=== PATIENT | male | born 1955 | race Caucasian/White ===

== ENCOUNTER 2016-10-13 09:13 | Inpatient (IN) | payer OTHER ==
--- NOTE | 2016-10-13 10:25 | XRay Report ---
CHEST 2 VIEWS INDICATION: Shortness of breath. COMPARISON: None similar at this institution. FINDINGS: PA and lateral chest radiographs demonstrate mild cardiomegaly. Clear lungs. Subtle posterior costophrenic angle blunting. Slight fluid or thickening along the major fissures as well. Mild upper thoracic levoscoliosis apex about T5. CONCLUSION: Mild cardiomegaly and possible trace pleural fluid, as described. Thank you for the opportunity to participate in this patient's care.
[2016-10-13 10:39] LABS: Hematocrit 20.5 % (35.5-45.6); Hemoglobin 6.7 gm/dl (11.8-15.2); Mean Corpuscular HGB Conc 33 % (32-34); Mean Corpuscular Hemoglobin 33 pg (28-32); Mean Corpuscular Volume 100 fl (84-94); Red Blood Count 2.04 M/mm3 (3.65-5.03)
[2016-10-13 10:42] LABS: White Blood Count 1.2 K/mm3 (4.5-11.0)
[2016-10-13 10:50] LABS: Alanine Aminotransferase 24 units/L (7-56); Albumin 2.3 g/dL (3.9-5); Albumin/Globulin Ratio 0.6 %; Alkaline Phosphatase 76 units/L (35-129); Anion Gap 31 mmol/L; Calcium 8.2 mg/dL (8.4-10.2); Carbon Dioxide 15 mmol/L (22-30); Chloride 89.7 mmol/L (98-107); Glucose 76 mg/dL (75-100); Potassium 5.5 mmol/L (3.6-5.0); Sodium 130 mmol/L (137-145); Total Protein 6.4 g/dL (6.3-8.2)
[2016-10-13 10:56] LABS: BUN/Creatinine Ratio 7.93; Blood Urea Nitrogen 115 mg/dL (9-20)
--- NOTE | 2016-10-13 10:58 | Admit Criteria Form ---
Admission Criteria Documentation: HYPONATREMIA; HYPERNATREMIA; HYPOKALEMIA; HYPERKALEMIA; HYPOCALCEMIA; HYPERCALCEMIA Clinical Indications for Inpatient Care (Place 'X' for any and all applicable criteria): Ongoing inpatient care may be indicated for ANY ONE of the following [G](1)(2)(3 )(5): [ ]I. Hyponatremia with ANY ONE of the following: [ ]a) Sodium less than 130 mEq/L (mmol/L) (new) (6)(22) [ ]b) Sodium less than 135 mEq/L (mmol/L) with ANY ONE of the following: [ ]i) Severe medical etiology requiring inpatient management (eg, heart failure, hypovolemia) [ ]ii) Altered mental status [ ]iii) Seizures [ ]II. Hypernatremia with ANY ONE of the following: [ ]a) Sodium greater than 155 mEq/L (mmol/L) [ ]b) Sodium greater than 150 mEq/L (mmol/L) with ANY ONE of the following: [ ] i) Altered mental status [ ]ii) Seizures [ ]iii) Severe medical etiology (eg, hypovolemia, diabetes insipidus) [ ]iv) Severe weakness [ ]v) Severe medical etiology (eg, hemolysis, infection, drug overdose) [ ]III. Hypokalemia with ANY ONE of the following: [ ]a) Potassium less than 2.5 mEq/L (mmol/L) despite outpatient and emergency treatment [ ]b) Potassium less than 3.0 mEq/L (mmol/L) with ANY ONE of the following: [ ]i) Weakness [ ]ii) Cardiac abnormality (eg, arrhythmia, conduction disturbance) [ ]iii) Cardiac ischemia [ ]iv) Ileus [ ]v) Ongoing medical cause requiring inpatient management. ( e.g., acute renal wasting, SIADH) [ ]vi) Other severe symptoms [X ] IV. Hyperkalemia with ANY ONE of the following: [ ]a) Potassium greater than 6.5 mEq/L (mmol/L) [X ]b) Potassium greater than 5 mEq/L (mmol/L) with ANY ONE of the following: [ ]i) Severe ECG findings [H] [X ]ii) Acute worsening of renal failure (creatinine greater than 2.5 mg/dL (221 micromoles/L) or significant elevation for age and size) [ ] V. Hypocalcemia with ANY ONE of the following: [ ]a) Calcium less than 7 mg/dL (1.75 mmol/L) despite outpatient and emergency treatment(19) [ ]b) Calcium less than 8 mg/dL (2 mmol/L) with significant symptoms or findings; examples include: [ ]i) Cardiac abnormality (eg, arrhythmia or conduction disturbance) [ ]ii) Altered mental status [ ]iii) Seizures [ ]iv) Breathing difficulty [ ]v) Muscle spasms [ ]. Hypercalcemia with ANY ONE of the following: [ ]a) Calcium greater than 14 mg/dL (3.5 mmol/L) [ ]b) Calcium greater than 12 mg/dL (3 mmol/L) with ANY ONE of the following: [ ]i) Significant dehydration or hypovolemia as indicated by ANY ONE of the following(2): [ ]1. Clinically significant dehydration as indicated by ANY ONE of the following: [ ]A. Acute loss of weight from baseline (5% of body weight in adults, 9% in pediatric patients) [ ]B. Hemodynamic instability [ ]C. Acute renal failure [ ]D. Serum sodium greater than 150 mEq/L (mmol/L) [ ]2) Dehydration that is persistent indicated by ALL of the following: [ ]A. Oral rehydration therapy not tolerated or insufficient to adequately correct dehydration [ ]B. Appropriate intravenous treatment (eg, fluids ) does not readily correct dehydration ie, after 12 to 24 hours of treatment) [ ]ii) Significant symptoms or findings; examples include: [ ]1) Altered mental status [ ]2) Cardiac abnormality (eg, arrhythmia, conduction disturbance) [ ]3) Cardiac abnormality (eg, arrhythmia, conduction disturbance) The original [employer] content created by [employer] has been revised. The portions of the content which have been revised are identified through the use of italic text or in bold, and [facility] has neither reviewed nor approved the modified material. All other unmodified content is copyright [facility] [employer] Please see references footnoted in the original [facility] [employer] edition 2016 Admission Criteria Met: Yes
[2016-10-13 11:16] LABS: Basophils % (Manual) 0 % (0.0-1.8); Blastocytes % (Manual) 0 %; Eosinophils % (Manual) 0 % (0.0-4.3)
[2016-10-13 11:17] LABS: Anisocytosis 2+; Diff Status Complete; Elliptocytes Few; Giant Platelets Rare; Large Platelets 1+; Macrocytosis Few; Ovalocytes 1+; Platelet Estimate Appears Decreased; Poikilocytosis 1+; Polychromasia Few; Tear Drop Cells Rare
[2016-10-13 11:19] LABS: Platelet Count 121 K/mm3 (140-440)
[2016-10-13] MEDS ORDERED: MORPHINE IV ONE (11:25)
--- NOTE | 2016-10-13 12:09 | Ultrasound Report ---
ULTRASOUND RENAL INDICATION: RAJESH, renal failure. COMPARISON: None similar. FINDINGS: Renal sonography suggests mild increased renal cortical echogenicity. Grossly preserved contours. No hydronephrosis. Small left pleural effusion incidentally noted. RIGHT KIDNEY measures 9.4 x 3.6 x 4.5 cm with cortical thickness of 1.5 cm. Minimal fluid in the Crockett's pouch. LEFT KIDNEY estimated at 8.8 x 5 x 5 cm with cortical thickness of 1.7 cm. URINARY BLADDER suboptimally distended and assessed. Approximately 0.9 x 0.4 cm nonspecific cystic focus along the urinary bladder anteriorly not entirely excluded to lie in the wall estimated at approximately 0.8 cm AP thickness as on images 22-25. CONCLUSION: No acute renal abnormality, though medical renal disease, small left pleural effusion, and a nonspecific urinary bladder wall cystic focus with wall thickening possible sonographically, as described. Please correlate. Thank you for the opportunity to participate in this patient's care.
--- NOTE | 2016-10-13 12:12 | Emergency Department Report ---
HPI - General Chief Complaint: Extremity Injury, Lower Time Seen by Provider: 10/13/16 10:51 - HPI HPI: This is a 61-year-old -[place] male who presents to the emergency department from home with complaint of a four-day history of swelling to the bilateral lower extremities and the right upper extremity. He has been having some intermittent swelling in the recent past but it got real bad 4 days ago. He has some pain in these areas secondary to the extra weight he is carrying. He denies any chest pain, shortness breath, abdominal pain, nausea, vomiting or fever. No recent travel or sick contacts at home. He has not taken anything for symptoms prior to presentation. Patient says that he does urinate but it is decreased in quantity recently. ED Past Medical Hx - Past Medical History Previous Medical History?: No - Surgical History Past Surgical History?: No - Social History Smoking Status: Never Smoker Substance Use Type: None - Medications Home Medications: Home Medications Medication Instructions Recorded Confirmed Last Taken Type Naproxen Sodium [Aleve TAB] 2 tab PO Q8H PRN 10/13/16 10/13/16 10/12/16 14:00 History ED Review of Systems ROS: Stated complaint: RT HAND AND BILATERAL FOOT SWELLING Other details as noted in HPI Comment: All other systems reviewed and negative Constitutional: denies: chills, fever Eyes: denies: eye pain, eye discharge, vision change ENT: denies: ear pain, throat pain Respiratory: denies: cough, shortness of breath, wheezing Cardiovascular: edema. denies: chest pain, palpitations Gastrointestinal: denies: abdominal pain, nausea, diarrhea Genitourinary: other (decreased urination). denies: hematuria, discharge Musculoskeletal: joint swelling. denies: arthralgia Skin: denies: rash, lesions Neurological: denies: headache, numbness Physical Exam - Physical Exam Vital Signs: Vital Signs 10/13/16 09:38 Temperature 98.2 F Pulse Rate 89 Respiratory 18 Rate Blood Pressure 133/86 O2 Sat by Pulse 98 Oximetry Physical Exam: GENERAL: The patient is well-developed well-nourished. HEENT: Normocephalic. Atraumatic. Extraocular motions are intact. Patient has moist mucous membranes. Pupils equal reactive to light bilaterally. Oropharynx clear. NECK: Supple. Trachea is midline. CHEST/LUNGS: Coarse breath sounds to the bases. No tachypnea or accessory muscle use.. There is no respiratory distress noted. HEART/CARDIOVASCULAR: Regular. There is no tachycardia. There is no gallop rub or murmur. ABDOMEN: Abdomen is soft, nontender. Patient has normal bowel sounds. There is no abdominal distention. SKIN: There is 2-3+ pitting edema to the bilateral lower extremities as well as the entire right upper extremity. No erythema, warmth or fluctuance. No bleeding, weeping or discharge. NEURO: The patient is awake, alert, and oriented. The patient is cooperative. The patient has no focal neurologic deficits. The patient has normal speech. MUSCULOSKELETAL: There is no tenderness. Patient has difficulty lifting his lower extremities off of the gurney secondary to the increased weight of the legs from the edema. There is no evidence of acute injury. ED Course Vital Signs 10/13/16 09:38 Temperature 98.2 F Pulse Rate 89 Respiratory 18 Rate Blood Pressure 133/86 O2 Sat by Pulse 98 Oximetry ED Medical Decision Making - Lab Data Result diagrams: 10/13/16 10:14 10/13/16 10:14 - Radiology Data Radiology results: report reviewed Venous Doppler ultrasound of the bilateral lower extremities in the right upper extremity are negative for DVT. Bilateral renal ultrasound shows medical renal disease but otherwise no obstructive uropathy or any acute process. - Medical Decision Making 61-year-old male presents to the emergency department with complaint of some progressively worsening swelling to the bilateral lower extremities in the right upper extremity. He denies any chest pain or shortness of breath. He denies any past medical history but also has not seen a physician as a primary care doctor in over 5 years. Patient presents with significant lab abnormalities including leukopenia, anemia, renal failure and hyperkalemia. Patient was given some Kayexalate. He was sent for an ultrasound of the renal system to look for obstructive uropathy as the cause of his renal failure and anuria but it shows only medical renal disease. Due to the swelling of the extremities he was sent for venous Dopplers but there was no sign of DVT. I am not sure of the etiology of the patient's symptoms and lab abnormalities but certainly a differential includes malignancy, HIV, lupus as well as some other possibilities. Nephrology was consult at and will see the patient in the emergency department. Vital signs stable throughout his ED course. Patient will be admitted to the hospitalist service of Dr. Mota. - Differential Diagnosis HIV, malignancy, lupus, CHF Critical Care Time: No Critical care attestation.: If time is entered above; I have spent that time in minutes in the direct care of this critically ill patient, excluding procedure time. ED Disposition Clinical Impression: Hyperkalemia Leucopenia Qualifiers: Leukopenia type: unspecified Qualified Code(s): D72.819 - Decreased white blood cell count, unspecified Anemia Qualifiers: Anemia type: unspecified type Qualified Code(s): D64.9 - Anemia, unspecified Renal failure Qualifiers: Renal failure chronicity: acute Acute renal failure type: unspecified Qualified Code(s): N17.9 - Acute kidney failure, unspecified Edema Qualifiers: Edema type: unspecified Qualified Code(s): R60.9 - Edema, unspecified Disposition: OP ADMITTED IP TO THIS HOSP Is pt being admited?: Yes Condition: Fair Time of Disposition: 14:05
[2016-10-13] MEDS ORDERED: KIONEX PO ONE (12:15)
[2016-10-13] MEDS ORDERED: NACL 0.9% 500 ML 500 ML IV ONE (12:16)
--- NOTE | 2016-10-13 13:26 | Consultation ---
History of Present Illness - Reason for Consult Consult date: 10/13/16 acute renal failure - History of Present Illness This is a 61 year old male who presented to the E. with his , Jennifer today for a chief complaint of pain and swelling to lower extremities and right upper extremity. Patient received Morphine at 11:30 a.m this morning for pain and is currently drowsy. at bedside who is the historian. According to patient's , the patient developed swelling to the right lower extremity first approximately 2 weeks ago then on Monday she noticed swelling to the left extremity and swelling to both legs have been increasing since Monday. Patient's also reports that she was administering Aleve 2 tablets every 12 hours daily for patient's leg pain since Monday. Patient denies any nausea, vomiting or diarrhea. States his appetite is good. states patient has urinated 1/2 cup of urine today. states patient does not have any Hypertension, Diabetes Mellitus or no medical history with the exception of Shingles last year November that he acquired when he had left the country. reports that patient does not have a Primary Care and is not being followed by any doctor and does not take any medications with the exception of Aleve which he started taking on Monday. On evaluation in E. patient is noted to be with Hyperkalemia with a potassium level of 5.5 and in severe renal failure with a BUN level of 115, creatinine 14.5 and GFR of 3 ml/ min. Patient is noted to be Leukopenic with a WBC count of 1.2 and severely Anemic with an HBG of 6.7. Doppler of lower extremities done and of right upper extremity revealed- No DVT. Renal US revealed- No Hydronephrosis. CXR revealed Mild Cardiomegaly and possible Pleural fluid. We are being consulted for management of this patient's Severe Renal Failure. Past History Past Medical History: other (Had shingles in November 2015) Past Surgical History: No surgical history Social history: , other (Patient is and lives with his ) Family history: no significant family history Medications and Allergies Allergies Allergy/AdvReac Type Severity Reaction Status Date / Time No Known Allergies Allergy Unverified 10/13/16 09:41 Home Medications Medication Instructions Recorded Confirmed Last Taken Type Naproxen Sodium [Aleve TAB] 2 tab PO Q8H PRN 10/13/16 10/13/16 10/12/16 14:00 History Review of Systems Constitutional: fatigue, weakness, no weight loss, no weight gain, no fever, no chills Ears, nose, mouth and throat: no ear pain, no ear discharge, no tinnitis, no decreased hearing, no nose pain, no nasal congestion Cardiovascular: edema, no chest pain, no orthopnea, no palpitations, no rapid/ irregular heart beat, no syncope, no lightheadedness, no shortness of breath Respiratory: no cough, no cough with sputum, no excessive sputum, no hemoptysis , no shortness of breath, no dyspnea on exertion Gastrointestinal: no abdominal pain, no nausea, no vomiting, no diarrhea, no constipation, no change in bowel habits, no hematemesis, no coffee ground emesis Genitourinary Male: no hematuria, no flank pain, no discharge, no urinary frequency, no urinary hesitancy, no nocturia, no incontinence Musculoskeletal: other (leg pain to both legs and swelling), no neck stiffness, no neck pain, no shooting arm pain, no arm numbness/tingling, no low back pain Integumentary: no rash, no pruritis, no redness, no sores, no wounds, no jaundice Neurological: weakness, no head injury, no transient paralysis, no paralysis, no parathesias, no numbness, no tingling, no seizures, no syncope, no tremors Psychiatric: no anxiety, no memory loss, no change in sleep habits, no sleep disturbances, no insomnia, no hypersomnia, no change in appetite, no change in libido Endocrine: no cold intolerance, no heat intolerance, no polyphagia, no excessive thirst, no polydipsia, no polyuria Hematologic/Lymphatic: no easy bruising, no easy bleeding, no lymphadenopathy, no lymphedema Exam - Vital Signs Vital signs: Vital Signs Temp Pulse Resp BP Pulse Ox 98.2 F 89 18 133/86 98 10/13/16 09:38 10/13/16 09:38 10/13/16 09:38 10/13/16 09:38 10/13/16 09:38 - General Appearance General appearance: well-developed, appears stated age, other (Drowsy but easily arousable, at bedside) EENT: ATNC, PERRL, hearing intact, vision intact Neck: Present: neck supple, trachea midline Respiratory: Decreased Breath Sounds Heart: regular, S1S2 Gastrointestinal: Present: normoactive bowel sounds Integumentary: warm and dry Neurologic: other (Drowsy but easily arousable, able answer questions briefly then dozes off) Musculoskeletal: Present: other (Has 2= edema to bilateral lower extremities and 1+ to right upper extremity) Results - Lab Results 10/13/16 10:14 10/13/16 10:14 Most recent lab results Calcium 8.2 mg/dL (8.4-10.2) L 10/13/16 10:14 Assessment and Plan - Patient Problems (1) Renal failure Current Visit: Yes Status: Acute Qualifiers: Renal failure chronicity: acute Acute renal failure type: unspecified Chronic kidney disease stage: C Qualified Code(s): N17.9 - Acute kidney failure, unspecified Plan to address problem: This patient has Severe renal failure, to be determine if this renal failure is Acute verses Chronic Patient's baseline serum creatinine is unknown Renal ultrasound reviewed- No Hydronephrosis or obstruction seen CXR- shows Mild Cardiomegaly and trace Plueral fluid. Will obtain GN work up- SPEP, UPEP, Anti-GBM, Hepatitis panel, ANCA, XU, HIV, Schistocytes smear, C3, C4 Obtain urine lytes- urinalysis, protein/creatinine ratio, urine sodium and urine creatinine Obtain iron panel Obtain phosphorus level Leukopenia- Pneumatic Riveter consulted Metabolic Acidosis without coma- Start Sodium Bicarbonate 650 mg po BID Strict I/O monitoring- do catheter ordered Avoid Nephrotoxic agents Renally dose medications Obtain daily weights This patient may need hemodialysis initiation in the next 24 hours if no improvement in renal function Reviewed plan of care with patient and his Jennifer at bedside. Also advised patient's to not administer any Aleve or NSAID's to patient from here on. Thank you for this kind consult. For any questions, please feel free to contact us at: Dr. Marin's cell: (2) Hyperkalemia Current Visit: Yes Status: Acute Plan to address problem: Kayexalate ordered BMP in a.m (3) Anemia Current Visit: Yes Status: Acute Qualifiers: Anemia type: unspecified type Iron deficiency anemia type: I Vitamin B12 deficiency anemia type: V Folate deficiency anemia type: F Bone marrow failure anemia type: B Hemolytic anemia type: H Other causes of anemia: O Qualified Code(s): D64.9 - Anemia, unspecified Plan to address problem: Scheduled to receive 1 unit PRBC transfusion Obtain iron level May need Epogen Hematology consult (4) Leucopenia Current Visit: Yes Status: Acute Qualifiers: Leukopenia type: unspecified Neutropenia type: N Qualified Code(s): D72.819 - Decreased white blood cell count, unspecified Plan to address problem: Hematology consulted
--- NOTE | 2016-10-13 14:39 | History and Physical Report ---
History of Present Illness Date of examination: 10/13/16 Chief complaint: Bilateral leg swelling History of present illness: 61-year-old -French male with no significant past medical history presented to the emergency department complaining of bilateral leg swelling that worsened for the last 4 days. The swelling is progressed gradually. Patient denied shortness of breath, orthopenia, PND, palpitations or dizziness. Patient denied bleeding from any sites of his body. Patient has never seen a physician for the last 5 years. Patient checked his blood pressure regularly at [facility] was usually in the normal limit. Patient has been taking Aleve since Monday for leg swelling. Patient denied any chest pain. REVIEW OF SYSTEMS: GENERAL: no weight change, no fatigue, no fever HEAD: no head ache EYES: no blurry vision, no acute visual loss EARS: no hearing loss, no discharge, no earache NOSE: no stuffiness, no sneezing, no discharge MOUTH, THROAT AND NECK: no bleeding gums, no sore throat, no swollen neck CARDIAC: no palpitations, no dyspnea on exertion, no orthopnea, no PND, + edema , no chest pain RESPIRATORY: no shortness of breath, no wheeze, no cough, no sputum, no hemoptysis, no asthma GI: no decreased appetite, no nausea, no vomiting, no dysphagia, no diarrhea, no constipation, no abdominal pain URINARY: no change in frequency, no urgency, no polyuria, no hematuria, no incontinence MUSCULOSKELETAL: no muscle weakness, no pain, no joint stiffness NEUROLOGIC: no loss of sensation/numbness, no tingling, no tremors, no weakness/ paralysis HEMATOLOGIC: + anemia, no easy bruising SKIN: no rashes ENDOCRINE: no heat/cold intolerance, no polyuria, no polydipsia, no thyroid problems, no diabetes PSYCHIATRIC: no anxiety, no depression, no suicidal ideations Past History Past Medical History: No medical history, other (Had shingles in November 27-) Past Surgical History: No surgical history Social history: , full code, other (Patienti s and lives with his ). denies: smoking, alcohol abuse, prescription drug abuse, IV drug use Family history: no significant family history Medications and Allergies Allergies Allergy/AdvReac Type Severity Reaction Status Date / Time No Known Allergies Allergy Unverified 10/13/16 09:41 Home Medications Medication Instructions Recorded Confirmed Last Taken Type Naproxen Sodium [Aleve TAB] 2 tab PO Q8H PRN 10/13/16 10/13/16 10/12/16 14:00 History Exam - Physical Exam Narrative exam: Not in cardiopulmonary distress. The patient appeared emaciated Vital signs as documented. Head exam is unremarkable. No scleral icterus . Neck is positive for JVD. Lungs are clear to auscultation. Cardiac exam reveals regular rate and Rhythm. First and second heart sounds normal. No murmurs, rubs or gallops. Abdominal exam reveals normal bowel sounds, no masses, no organomegaly and no aortic enlargement. Extremities +2 pedal and pretibial edema. 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 No focal weakness. - Constitutional Vitals: Temp Pulse Resp BP Pulse Ox 98.2 F 89 19 133/86 100 10/13/16 09:38 10/13/16 09:38 10/13/16 11:43 10/13/16 09:38 10/13/16 11:43 Results - Labs CBC & Chem 7: 10/13/16 10:14 10/13/16 10:14 Labs: Laboratory Last Values WBC 1.2 K/mm3 (4.5-11.0) L* 10/13/16 10:14 RBC 2.04 M/mm3 (3.65-5.03) L 10/13/16 10:14 Hgb 6.7 gm/dl (11.8-15.2) L 10/13/16 10:14 Hct 20.5 % (35.5-45.6) L 10/13/16 10:14 MCV 100 fl (84-94) H 10/13/16 10:14 MCH 33 pg (28-32) H 10/13/16 10:14 MCHC 33 % (32-34) 10/13/16 10:14 RDW 15.0 % (13.2-15.2) 10/13/16 10:14 Plt Count 121 K/mm3 (140-440) L 10/13/16 10:14 Add Manual Diff Complete 10/13/16 10:14 Total Counted 50 10/13/16 10:14 Seg Neuts % (Manual) 66.0 % (40.0-70.0) 10/13/16 10:14 Band Neutrophils % 26.0 % 10/13/16 10:14 Lymphocytes % (Manual) 2.0 % (13.4-35.0) L 10/13/16 10:14 Reactive Lymphs % (Man) 0 % 10/13/16 10:14 Monocytes % (Manual) 2.0 % (0.0-7.3) 10/13/16 10:14 Eosinophils % (Manual) 0 % (0.0-4.3) 10/13/16 10:14 Basophils % (Manual) 0 % (0.0-1.8) 10/13/16 10:14 Metamyelocytes % 2.0 % 10/13/16 10:14 Myelocytes % 2.0 % 10/13/16 10:14 Promyelocytes % 0 % 10/13/16 10:14 Blast Cells % 0 % 10/13/16 10:14 Nucleated RBC % Not Reportable 10/13/16 10:14 Seg Neutrophils # Man 0.8 K/mm3 (1.8-7.7) L 10/13/16 10:14 Band Neutrophils # 0.3 K/mm3 10/13/16 10:14 Lymphocytes # (Manual) 0.0 K/mm3 (1.2-5.4) L 10/13/16 10:14 Abs React Lymphs (Man) 0.0 K/mm3 10/13/16 10:14 Monocytes # (Manual) 0.0 K/mm3 (0.0-0.8) 10/13/16 10:14 Eosinophils # (Manual) 0.0 K/mm3 (0.0-0.4) 10/13/16 10:14 Basophils # (Manual) 0.0 K/mm3 (0.0-0.1) 10/13/16 10:14 Metamyelocytes # 0.0 K/mm3 10/13/16 10:14 Myelocytes # 0.0 K/mm3 10/13/16 10:14 Promyelocytes # 0.0 K/mm3 10/13/16 10:14 Blast Cells # 0.0 K/mm3 10/13/16 10:14 WBC Morphology Not Reportable 10/13/16 10:14 Hypersegmented Neuts Not Reportable 10/13/16 10:14 Hyposegmented Neuts Not Reportable 10/13/16 10:14 Hypogranular Neuts Not Reportable 10/13/16 10:14 Smudge Cells Not Reportable 10/13/16 10:14 Toxic Granulation Not Reportable 10/13/16 10:14 Toxic Vacuolation Not Reportable 10/13/16 10:14 Dohle Bodies Not Reportable 10/13/16 10:14 Pelger-Huet Anomaly Not Reportable 10/13/16 10:14 Madhu Rods Not Reportable 10/13/16 10:14 Platelet Estimate Appears decreased 10/13/16 10:14 Clumped Platelets Not Reportable 10/13/16 10:14 Plt Clumps, EDTA Not Reportable 10/13/16 10:14 Large Platelets 1+ 10/13/16 10:14 Giant Platelets Rare 10/13/16 10:14 Platelet Satelliting Not Reportable 10/13/16 10:14 Plt Morphology Comment Not Reportable 10/13/16 10:14 RBC Morphology Not Reportable 10/13/16 10:14 Dimorphic RBCs Not Reportable 10/13/16 10:14 Polychromasia Few 10/13/16 10:14 Hypochromasia Not Reportable 10/13/16 10:14 Poikilocytosis 1+ 10/13/16 10:14 Anisocytosis 2+ 10/13/16 10:14 Microcytosis Not Reportable 10/13/16 10:14 Macrocytosis Few 10/13/16 10:14 Spherocytes Not Reportable 10/13/16 10:14 Pappenheimer Bodies Not Reportable 10/13/16 10:14 Sickle Cells Not Reportable 10/13/16 10:14 Target Cells Not Reportable 10/13/16 10:14 Tear Drop Cells Rare 10/13/16 10:14 Ovalocytes 1+ 10/13/16 10:14 Helmet Cells Not Reportable 10/13/16 10:14 Goodman-Logan Bodies Not Reportable 10/13/16 10:14 Forest Rings Not Reportable 10/13/16 10:14 Bell Buckle Cells Not Reportable 10/13/16 10:14 Bite Cells Not Reportable 10/13/16 10:14 Crenated Cell Not Reportable 10/13/16 10:14 Elliptocytes Few 10/13/16 10:14 Acanthocytes (Spur) Not Reportable 10/13/16 10:14 Rouleaux Not Reportable 10/13/16 10:14 Hemoglobin C Crystals Not Reportable 10/13/16 10:14 Schistocytes Not Reportable 10/13/16 10:14 Malaria parasites Not Reportable 10/13/16 10:14 Pal Bodies Not Reportable 10/13/16 10:14 Hem Pathologist Commnt No 10/13/16 10:14 Sodium 130 mmol/L (137-145) L 10/13/16 10:14 Potassium 5.5 mmol/L (3.6-5.0) H 10/13/16 10:14 Chloride 89.7 mmol/L (98-107) L 10/13/16 10:14 Carbon Dioxide 15 mmol/L (22-30) L 10/13/16 10:14 Anion Gap 31 mmol/L 10/13/16 10:14 BUN 115 mg/dL (9-20) H 10/13/16 10:14 Creatinine 14.5 mg/dL (0.8-1.5) H 10/13/16 10:14 Estimated GFR 3 ml/min 10/13/16 10:14 BUN/Creatinine Ratio 7.93 % 10/13/16 10:14 Glucose 76 mg/dL (75-100) 10/13/16 10:14 Calcium 8.2 mg/dL (8.4-10.2) L 10/13/16 10:14 Total Bilirubin 0.60 mg/dL (0.1-1.2) 10/13/16 10:14 AST 17 units/L (5-40) 10/13/16 10:14 ALT 24 units/L (7-56) 10/13/16 10:14 Alkaline Phosphatase 76 units/L (35-129) 10/13/16 10:14 Troponin T 0.079 ng/mL (0.00-0.029) H 10/13/16 10:14 NT-Pro-B Natriuret Pep > 27280 pg/mL (0-900) H 10/13/16 10:14 Total Protein 6.4 g/dL (6.3-8.2) 10/13/16 10:14 Albumin 2.3 g/dL (3.9-5) L 10/13/16 10:14 Albumin/Globulin Ratio 0.6 % 10/13/16 10:14 Triglycerides 119 mg/dL (2-149) 10/13/16 10:14 Cholesterol 71 mg/dL (50-199) 10/13/16 10:14 LDL Cholesterol Direct 41 mg/dL (50-130) L 10/13/16 10:14 HDL Cholesterol 7 mg/dL (40-59) L 10/13/16 10:14 Cholesterol/HDL Ratio 10.14 % 10/13/16 10:14 leukopenia. - Imaging and Cardiology Chest x-ray: image reviewed (cardiomegaly) Assessment and Plan Assessment and plan: ESRD/ encephalopathy - nephrology consulted and will have hemodialysis - avoid nephrotoxins - Will monitor if there is any improvement, if not he will be dialyzed Leukopenia - consult hematology/oncology severe anemia likely anemia of chronic disease - will transfuse him with 2 units of blood Hyperkalemia - Kayexalate given - Will monitor ? CHF - elevated JVP - elevated BNP - bilateral leg swelling - CXR showed cardiomegaly - Will do echo Prophylaxis - SCD - Patient is anemic Disposition - admit to ICU Advance Directives: Yes (Full code) Contraindication Mechanical VTE Prophylaxis: Treatment Not Indicated Plan of care discussed with patient/family: Yes
[2016-10-13] MEDS ORDERED: KIONEX ONE (15:37)
[2016-10-13 15:49] LABS: HIV-1 Antigen p24 Non React (Non React); HIVR-1/2 Ab Non React (Non React); Smear for Schistocytes Few
--- NOTE | 2016-10-13 16:55 | Cat Scan Report ---
Cranial CT without contrast. History: Altered mental status. Findings: There is a vague ill-defined hypodensity in the left internal capsule region. No evidence of hemorrhage is seen. There is a small chronic lacunae in the left periventricular white matter. There are no extra-axial collections or masses. The chronic lacunae seen in the left aleksandra. The ventricles are normal. Impression: Vague hypodensity in the left anterior internal capsule region. An acute infarct cannot be excluded. MRI of the brain is recommended. 2. Chronic lacune's are seen in the left brainstem and left periventricular white matter. Comment: These findings were given to the patient's nurse Ismael at 4:50 PM on October 13.
[2016-10-13] MEDS ORDERED: NACL 0.9% 100 ML IV PRN ×3 (17:00→21:02)
[2016-10-13] MEDS ORDERED: TYLENOL PO ONE (18:45)
[2016-10-13] MEDS: D50W (25GM) IV PRN (22:06)
[2016-10-13] MEDS ORDERED: D50W (25GM) IV ONE ×2 (22:16→22:29)
[2016-10-13] MEDS: SODIUM BICARBONATE PO SCH (22:30)
--- NOTE | 2016-10-13 23:19 | Consultation ---
History of Present Illness - Reason for Consult Consult date: 10/13/16 Pancytopenia. Requesting physician: MIGUEL ÁNGEL NATHAN - History of Present Illness Thank you for this consult.Patient seen/ examined in the ER, record reviewed, case d/w patient, and his family at the bed side. He is some what druggy from morphine given in the ER. His gave most of the hx. Kindly asked to see for the reasons above. As per the wifes, account, patient started feeling bad 2weeks ago, starting with swelling in the legs/feet, then diffuse join pain. He has denied, any exposure to any chemicals, or any PMH, or family hx. Denies any bleeding.But have l0 pounds in 6 months.As per his , he travelled to his home [place] late last yr, fell sick with shingles, and never felt well since then. I have reviewed, the testing so far with HIV1/2, hepc negative, ther is few schistocytes., hgb, cr, bun ,plt all abn, as well as cardiac enzymes. I agree with the w/up by renal service so far.I will suggest that patient may either have Multiple myeloma, of or B cell disease. ,light/heavy chain disease.will w/up for waldenstrome macroglobulenemia, vs amyloid, given multi organ involvement. Past History Past Medical History: No medical history, other (Had shingles in November 27-) Past Surgical History: No surgical history Social history: , full code, other (Patienti s and lives with his ). denies: smoking, alcohol abuse, prescription drug abuse, IV drug use Family history: no significant family history Medications and Allergies Allergies Allergy/AdvReac Type Severity Reaction Status Date / Time No Known Allergies Allergy Unverified 10/13/16 09:41 Home Medications Medication Instructions Recorded Confirmed Last Taken Type Naproxen Sodium [Aleve TAB] 2 tab PO Q8H PRN 10/13/16 10/13/16 10/12/16 14:00 History Active Meds: Active Medications Dextrose (D50w (25gm)) 25 ml IV PRN PRN PRN Reason: Hypoglycemia Last Admin: 10/13/16 22:06 Dose: 25 ml Heparin Sodium (Porcine) (Heparin) 5,000 unit IV ROD PRN PRN Reason: hemodialysis Sodium Chloride (Nacl 0.9%) 100 mls @ 999 mls/hr IV ROD PRN PRN Reason: Hypotension Sodium Chloride (Nacl 0.9%) 100 mls @ 999 mls/hr IV ROD PRN PRN Reason: Hypotension Sodium Chloride (Nacl 0.9%) 100 mls @ 999 mls/hr IV ROD PRN PRN Reason: Hypotension Sodium Bicarbonate (Sodium Bicarbonate) 650 mg PO BID EDWINA Review of Systems Constitutional: fatigue Exam - Constitutional Vitals: Temp Pulse Resp BP Pulse Ox 97.3 F L 102 H 15 129/97 99 10/13/16 22:15 10/13/16 22:45 10/13/16 22:20 10/13/16 22:45 10/13/16 22:15 General appearance: Present: mild distress, well-nourished - EENT Eyes: Present: PERRL ENT: hearing intact, clear oral mucosa - Neck Neck: Present: supple, normal ROM - Respiratory Respiratory effort: normal Respiratory: bilateral: CTA - Cardiovascular Heart Sounds: Present: S1 & S2. Absent: rub, click - Extremities Extremities: pulses symmetrical, No edema Peripheral Pulses: within normal limits - Abdominal General gastrointestinal: Present: soft, non-tender, non-distended, normal bowel sounds Male genitourinary: Present: deferred - Rectal Rectal Exam: deferred - Integumentary Integumentary: Present: clear, warm, dry - Psychiatric Psychiatric: appropriate mood/affect - Neurologic Neurologic: CNII-XII intact, moves all extremities Results - Labs CBC & Chem 7: 10/13/16 10:14 10/13/16 10:14 Labs: Abnormal lab results 10/13/16 10/13/16 Range/Units 21:40 22:05 POC Glucose 52 L 43 L (70-105) Assessment and Plan - Patient Problems (1) Anemia Current Visit: Yes Status: Acute Qualifiers: Anemia type: unspecified type Iron deficiency anemia type: I Vitamin B12 deficiency anemia type: V Folate deficiency anemia type: F Bone marrow failure anemia type: B Hemolytic anemia type: H Other causes of anemia: O Qualified Code(s): D64.9 - Anemia, unspecified Plan to address problem: For now, he is getting replacement transfusion. see further w/up. (2) Leucopenia Current Visit: Yes Status: Acute Qualifiers: Leukopenia type: unspecified Neutropenia type: N Qualified Code(s): D72.819 - Decreased white blood cell count, unspecified Plan to address problem: will give stimulant if indicated. (3) Renal failure Current Visit: Yes Status: Acute Qualifiers: Renal failure chronicity: acute Acute renal failure type: unspecified Chronic kidney disease stage: C Qualified Code(s): N17.9 - Acute kidney failure, unspecified Plan to address problem: See w/up, and renal service.
[2016-10-14] MEDS: HEPARIN IV PRN ×3 (00:45→13:39)
[2016-10-14] MEDS: SODIUM BICARBONATE PO SCH ×3 (01:18→21:10)
[2016-10-14] MEDS: TYLENOL PO PRN ×2 (01:19→21:13)
[2016-10-14 03:56] LABS: BUN/Creatinine Ratio 7.44; Calcium 8.2 mg/dL (8.4-10.2); Chloride 91.2 mmol/L (98-107); Phosphorous 6.6 mg/dL (2.5-4.5); Potassium 4.2 mmol/L (3.6-5.0)
[2016-10-14 04:53] LABS: Hematocrit 21.7 % (35.5-45.6); Hemoglobin 7.3 gm/dl (11.8-15.2); Mean Corpuscular HGB Conc 34 % (32-34); Mean Corpuscular Hemoglobin 31 pg (28-32); Mean Corpuscular Volume 93 fl (84-94); Red Blood Count 2.33 M/mm3 (3.65-5.03); Red Cell Distribution Width 19.8 % (13.2-15.2)
[2016-10-14 04:55] LABS: Platelet Count 99 K/mm3 (140-440)
[2016-10-14 04:57] LABS: White Blood Count 1.3 K/mm3 (4.5-11.0)
[2016-10-14] MEDS: D50W (25GM) IV PRN ×5 (05:45→13:21)
[2016-10-14 06:07] LABS: Blastocytes % (Manual) 0 %
[2016-10-14 06:08] LABS: Anisocytosis 1+; Basophils % (Manual) 0 % (0.0-1.8); Eosinophils % (Manual) 0 % (0.0-4.3); Macrocytosis Few
[2016-10-14 06:09] LABS: Elliptocytes Few; Ovalocytes 1+; Polychromasia Few; Tear Drop Cells Rare
[2016-10-14 06:10] LABS: Diff Status Complete; Large Platelets 1+; Platelet Estimate Consistent w Auto
--- NOTE | 2016-10-14 07:09 | XRay Report ---
Single view chest: Compared to 10/13/16. Findings: Cardiomegaly. Trachea is midline. No consolidation, pneumothorax or pleural effusion. Impression: No acute cardiopulmonary findings. Tip of right venous catheter in right atrium.
--- NOTE | 2016-10-14 07:49 | Operative Report ---
Operative Report Operative Report: Date of operation: 10/13/2016 Preoperative diagnosis: Acute renal failure. Postop diagnosis: The same Procedure: Right internal jugular vein non-tunneled dialysis catheter placement with ultrasound guidance. Surgeon: Mika Krishna MD anesthesia: Local eBL: Minimal findings: Patent right internal jugular vein. Catheter aspirates and flushed well. Tip of the catheter in the right atrium. No evidence of pneumothorax on the chest x-ray. complications: None Procedure in details: Patient right neck was prepped and draped at the bedside. Under ultrasound guidance a 19 gauge entry needle was inserted into the right internal jugular vein. The wire was advanced into the SVC without resistance. The insertion site was dilated with a dilator. The catheter was advanced over the wire without resistance. It aspirated and flushed well. Catheter was anchored to the skin with 2-0 silk stitches. Patient tolerated procedure well. Chest x-ray showed tip of the catheter in the right atrium and no pneumothorax.
--- NOTE | 2016-10-14 09:41 | Progress Note ---
Assessment and Plan (1) Renal failure Current Visit: Yes Status: Acute Qualifiers: Renal failure chronicity: acute Acute renal failure type: unspecified Chronic kidney disease stage: C Qualified Code(s): N17.9 - Acute kidney failure, unspecified Plan to address problem: etiology of renal failure remains unclear, acute vs chronic GN work up is pending- SPEP, UPEP, Anti-GBM, ANCA, XU, C3, C4. HCV, HBV and HIV were negative but blood smear showed few schistocytes, will check for hemolysis, possible TTP/HUS/DIC. awaiting hematology eval HD again today for clearance and volume removal, will also receive one tx tomorrow to r/o uremic encphalopathy Strict I/O monitoring- od catheter ordered Avoid Nephrotoxic agents Renally dose medications Obtain daily weights (2) Hyperkalemia Current Visit: Yes Status: Acute Plan to address problem: s/p HD last night (3) Anemia Current Visit: Yes Status: Acute Qualifiers: Anemia type: unspecified type Iron deficiency anemia type: I Vitamin B12 deficiency anemia type: V Folate deficiency anemia type: F Bone marrow failure anemia type: B Hemolytic anemia type: H Other causes of anemia: O Qualified Code(s): D64.9 - Anemia, unspecified Plan to address problem: iron panel is pending (4) pancytopenia Current Visit: Yes Status: Acute Qualifiers: Leukopenia type: unspecified Neutropenia type: N Qualified Code(s): D72.819 - Decreased white blood cell count, unspecified Plan to address problem: Hematology consulted Subjective Date of service: 10/14/16 Principal diagnosis: severe renal failure Interval history: s/p vascath and HD yesterday, remains to be confused, at bedside, all questions answered Objective - Vital Signs Vital signs: Vital Signs - 12hr 10/13/16 10/13/16 10/13/16 21:40 21:45 21:50 Temperature 97.3 F L Pulse Rate 102 H 101 H 97 H Respiratory 16 20 15 Rate Respiratory 20 Rate [BILATERAL KNEES] Respiratory 20 Rate [Bilateral Shoulder] Respiratory 20 Rate [RIGHT HAND / WRIST] Blood Pressure 135/96 146/92 O2 Sat by Pulse 73 L 100 Oximetry O2 Sat by Pulse Oximetry [ Anterior Bilateral Throughout] 10/13/16 10/13/16 10/13/16 22:00 22:10 22:15 Temperature 97.3 F L Pulse Rate 99 H 98 H 101 H Respiratory 16 16 16 Rate Respiratory Rate [BILATERAL KNEES] Respiratory Rate [Bilateral Shoulder] Respiratory Rate [RIGHT HAND / WRIST] Blood Pressure 144/93 134/78 142/97 O2 Sat by Pulse 98 99 Oximetry O2 Sat by Pulse 99 Oximetry [ Anterior Bilateral Throughout] 10/13/16 10/13/16 10/13/16 22:20 22:30 22:40 Temperature Pulse Rate 99 H 102 H 99 H Respiratory 15 20 14 Rate Respiratory Rate [BILATERAL KNEES] Respiratory Rate [Bilateral Shoulder] Respiratory Rate [RIGHT HAND / WRIST] Blood Pressure 141/91 142/97 142/97 O2 Sat by Pulse 89 92 Oximetry O2 Sat by Pulse Oximetry [ Anterior Bilateral Throughout] 10/13/16 10/13/16 10/13/16 22:45 22:50 23:00 Temperature Pulse Rate 102 H 101 H 104 H Respiratory 16 21 Rate Respiratory Rate [BILATERAL KNEES] Respiratory Rate [Bilateral Shoulder] Respiratory Rate [RIGHT HAND / WRIST] Blood Pressure 129/97 129/97 131/96 O2 Sat by Pulse 100 100 Oximetry O2 Sat by Pulse Oximetry [ Anterior Bilateral Throughout] 10/13/16 10/13/16 10/13/16 23:01 23:02 23:10 Temperature 97.3 F L Pulse Rate 103 H 101 H 106 H Respiratory 18 20 Rate Respiratory Rate [BILATERAL KNEES] Respiratory Rate [Bilateral Shoulder] Respiratory Rate [RIGHT HAND / WRIST] Blood Pressure 129/97 129/97 131/96 O2 Sat by Pulse 98 100 Oximetry O2 Sat by Pulse Oximetry [ Anterior Bilateral Throughout] 10/13/16 10/13/16 10/13/16 23:14 23:15 23:16 Temperature 97.3 F L 97.3 F L Pulse Rate 104 H 106 H 105 H Respiratory 22 18 Rate Respiratory Rate [BILATERAL KNEES] Respiratory Rate [Bilateral Shoulder] Respiratory Rate [RIGHT HAND / WRIST] Blood Pressure 131/96 131/96 122/94 O2 Sat by Pulse 100 100 Oximetry O2 Sat by Pulse Oximetry [ Anterior Bilateral Throughout] 10/13/16 10/13/16 10/13/16 23:20 23:27 23:30 Temperature Pulse Rate 106 H 107 H 110 H Respiratory 18 20 Rate Respiratory Rate [BILATERAL KNEES] Respiratory Rate [Bilateral Shoulder] Respiratory Rate [RIGHT HAND / WRIST] Blood Pressure 122/94 122/94 127/103 O2 Sat by Pulse 100 100 Oximetry O2 Sat by Pulse Oximetry [ Anterior Bilateral Throughout] 10/13/16 10/13/16 10/13/16 23:40 23:41 23:46 Temperature 97.5 F L 97.5 F L Pulse Rate 111 H 109 H 112 H Respiratory 16 20 17 Rate Respiratory Rate [BILATERAL KNEES] Respiratory Rate [Bilateral Shoulder] Respiratory Rate [RIGHT HAND / WRIST] Blood Pressure 136/103 136/103 143/113 O2 Sat by Pulse 100 100 100 Oximetry O2 Sat by Pulse Oximetry [ Anterior Bilateral Throughout] 10/13/16 10/13/16 10/13/16 23:50 23:55 23:57 Temperature 97.5 F L Pulse Rate 112 H 112 H Respiratory 17 Rate Respiratory Rate [BILATERAL KNEES] Respiratory Rate [Bilateral Shoulder] Respiratory Rate [RIGHT HAND / WRIST] Blood Pressure 143/113 143/113 O2 Sat by Pulse 98 Oximetry O2 Sat by Pulse Oximetry [ Anterior Bilateral Throughout] 10/14/16 10/14/16 10/14/16 00:00 00:09 00:10 Temperature Pulse Rate 113 H 111 H 113 H Respiratory 16 21 21 Rate Respiratory Rate [BILATERAL KNEES] Respiratory Rate [Bilateral Shoulder] Respiratory Rate [RIGHT HAND / WRIST] Blood Pressure 135/110 135/110 135/110 O2 Sat by Pulse 100 100 100 Oximetry O2 Sat by Pulse Oximetry [ Anterior Bilateral Throughout] 10/14/16 10/14/16 10/14/16 00:16 00:20 00:22 Temperature Pulse Rate 113 H 116 H 114 H Respiratory 19 21 23 Rate Respiratory Rate [BILATERAL KNEES] Respiratory Rate [Bilateral Shoulder] Respiratory Rate [RIGHT HAND / WRIST] Blood Pressure 140/98 140/98 140/98 O2 Sat by Pulse 100 97 90 Oximetry O2 Sat by Pulse Oximetry [ Anterior Bilateral Throughout] 10/14/16 10/14/16 10/14/16 00:30 00:39 00:40 Temperature 97.5 F L Pulse Rate 117 H 118 H 116 H Respiratory 21 26 H 24 Rate Respiratory Rate [BILATERAL KNEES] Respiratory Rate [Bilateral Shoulder] Respiratory Rate [RIGHT HAND / WRIST] Blood Pressure 152/109 152/109 152/109 O2 Sat by Pulse 99 Oximetry O2 Sat by Pulse 100 Oximetry [ Anterior Bilateral Throughout] 10/14/16 10/14/16 10/14/16 00:50 01:00 01:10 Temperature Pulse Rate 114 H 116 H 114 H Respiratory 12 16 24 Rate Respiratory Rate [BILATERAL KNEES] Respiratory Rate [Bilateral Shoulder] Respiratory Rate [RIGHT HAND / WRIST] Blood Pressure 140/98 151/115 151/115 O2 Sat by Pulse 100 100 100 Oximetry O2 Sat by Pulse Oximetry [ Anterior Bilateral Throughout] 10/14/16 10/14/16 10/14/16 01:15 01:19 01:20 Temperature Pulse Rate 114 H 112 H Respiratory 20 23 Rate Respiratory Rate [BILATERAL KNEES] Respiratory Rate [Bilateral Shoulder] Respiratory Rate [RIGHT HAND / WRIST] Blood Pressure 149/100 O2 Sat by Pulse 100 Oximetry O2 Sat by Pulse Oximetry [ Anterior Bilateral Throughout] 10/14/16 10/14/16 10/14/16 01:30 01:40 01:50 Temperature Pulse Rate 116 H 115 H 118 H Respiratory 18 27 H 26 H Rate Respiratory Rate [BILATERAL KNEES] Respiratory Rate [Bilateral Shoulder] Respiratory Rate [RIGHT HAND / WRIST] Blood Pressure 165/110 165/110 149/100 O2 Sat by Pulse Oximetry O2 Sat by Pulse Oximetry [ Anterior Bilateral Throughout] 10/14/16 10/14/16 10/14/16 02:00 02:10 02:19 Temperature Pulse Rate 118 H 115 H Respiratory 19 20 20 Rate Respiratory Rate [BILATERAL KNEES] Respiratory Rate [Bilateral Shoulder] Respiratory Rate [RIGHT HAND / WRIST] Blood Pressure 145/97 153/110 O2 Sat by Pulse Oximetry O2 Sat by Pulse Oximetry [ Anterior Bilateral Throughout] 10/14/16 10/14/16 10/14/16 02:20 02:26 02:30 Temperature Pulse Rate 118 H 114 H 118 H Respiratory 27 H 24 Rate Respiratory Rate [BILATERAL KNEES] Respiratory Rate [Bilateral Shoulder] Respiratory Rate [RIGHT HAND / WRIST] Blood Pressure 153/110 153/110 O2 Sat by Pulse 100 97 Oximetry O2 Sat by Pulse Oximetry [ Anterior Bilateral Throughout] 10/14/16 10/14/16 10/14/16 02:40 02:50 03:00 Temperature Pulse Rate 123 H 124 H 116 H Respiratory 33 H 25 H 25 H Rate Respiratory Rate [BILATERAL KNEES] Respiratory Rate [Bilateral Shoulder] Respiratory Rate [RIGHT HAND / WRIST] Blood Pressure 153/110 153/110 139/89 O2 Sat by Pulse 98 100 99 Oximetry O2 Sat by Pulse Oximetry [ Anterior Bilateral Throughout] 10/14/16 10/14/16 10/14/16 03:10 03:15 03:19 Temperature Pulse Rate 121 H 121 H 121 H Respiratory 24 Rate Respiratory Rate [BILATERAL KNEES] Respiratory Rate [Bilateral Shoulder] Respiratory Rate [RIGHT HAND / WRIST] Blood Pressure 139/89 O2 Sat by Pulse 100 100 100 Oximetry O2 Sat by Pulse Oximetry [ Anterior Bilateral Throughout] 10/14/16 10/14/16 10/14/16 03:20 03:30 03:40 Temperature Pulse Rate 119 H 123 H Respiratory 32 H 29 H Rate Respiratory Rate [BILATERAL KNEES] Respiratory Rate [Bilateral Shoulder] Respiratory Rate [RIGHT HAND / WRIST] Blood Pressure 139/89 139/89 139/89 O2 Sat by Pulse 100 100 58 L Oximetry O2 Sat by Pulse Oximetry [ Anterior Bilateral Throughout] 10/14/16 10/14/16 10/14/16 03:50 04:00 04:10 Temperature Pulse Rate 128 H 122 H 125 H Respiratory 33 H 21 30 H Rate Respiratory Rate [BILATERAL KNEES] Respiratory Rate [Bilateral Shoulder] Respiratory Rate [RIGHT HAND / WRIST] Blood Pressure 139/89 139/89 158/112 O2 Sat by Pulse 99 100 100 Oximetry O2 Sat by Pulse Oximetry [ Anterior Bilateral Throughout] 10/14/16 10/14/16 10/14/16 04:20 04:30 04:40 Temperature Pulse Rate 124 H 123 H 124 H Respiratory 28 H 31 H 30 H Rate Respiratory Rate [BILATERAL KNEES] Respiratory Rate [Bilateral Shoulder] Respiratory Rate [RIGHT HAND / WRIST] Blood Pressure 158/112 158/112 158/112 O2 Sat by Pulse 100 100 99 Oximetry O2 Sat by Pulse Oximetry [ Anterior Bilateral Throughout] 10/14/16 10/14/16 10/14/16 04:50 05:00 05:10 Temperature Pulse Rate 131 H 125 H 128 H Respiratory 43 H 29 H 42 H Rate Respiratory Rate [BILATERAL KNEES] Respiratory Rate [Bilateral Shoulder] Respiratory Rate [RIGHT HAND / WRIST] Blood Pressure 158/112 158/112 159/97 O2 Sat by Pulse 98 44 L 97 Oximetry O2 Sat by Pulse Oximetry [ Anterior Bilateral Throughout] 10/14/16 10/14/16 10/14/16 05:20 05:30 05:40 Temperature Pulse Rate 125 H 124 H 126 H Respiratory 32 H 26 H 31 H Rate Respiratory Rate [BILATERAL KNEES] Respiratory Rate [Bilateral Shoulder] Respiratory Rate [RIGHT HAND / WRIST] Blood Pressure 159/97 159/97 159/97 O2 Sat by Pulse 97 100 97 Oximetry O2 Sat by Pulse Oximetry [ Anterior Bilateral Throughout] 10/14/16 10/14/16 10/14/16 05:50 06:00 06:10 Temperature Pulse Rate 129 H 129 H 132 H Respiratory 32 H 35 H 37 H Rate Respiratory Rate [BILATERAL KNEES] Respiratory Rate [Bilateral Shoulder] Respiratory Rate [RIGHT HAND / WRIST] Blood Pressure 159/97 159/97 159/97 O2 Sat by Pulse 98 Oximetry O2 Sat by Pulse Oximetry [ Anterior Bilateral Throughout] 10/14/16 10/14/16 10/14/16 06:15 06:20 06:30 Temperature Pulse Rate 130 H 127 H Respiratory 36 H 33 H Rate Respiratory Rate [BILATERAL KNEES] Respiratory Rate [Bilateral Shoulder] Respiratory Rate [RIGHT HAND / WRIST] Blood Pressure 159/97 159/97 O2 Sat by Pulse 97 Oximetry O2 Sat by Pulse Oximetry [ Anterior Bilateral Throughout] 10/14/16 10/14/16 10/14/16 06:40 06:50 07:00 Temperature Pulse Rate 131 H 128 H 130 H Respiratory 28 H 42 H 35 H Rate Respiratory Rate [BILATERAL KNEES] Respiratory Rate [Bilateral Shoulder] Respiratory Rate [RIGHT HAND / WRIST] Blood Pressure 160/127 163/96 163/96 O2 Sat by Pulse 98 100 96 Oximetry O2 Sat by Pulse Oximetry [ Anterior Bilateral Throughout] 10/14/16 10/14/16 10/14/16 07:10 07:20 07:30 Temperature Pulse Rate 130 H 130 H 124 H Respiratory 33 H 35 H 29 H Rate Respiratory Rate [BILATERAL KNEES] Respiratory Rate [Bilateral Shoulder] Respiratory Rate [RIGHT HAND / WRIST] Blood Pressure 171/101 171/101 132/91 O2 Sat by Pulse 96 98 97 Oximetry O2 Sat by Pulse Oximetry [ Anterior Bilateral Throughout] 10/14/16 10/14/16 10/14/16 07:40 07:50 08:00 Temperature 97.9 F Pulse Rate 127 H 128 H 127 H Respiratory 26 H 39 H 40 H Rate Respiratory Rate [BILATERAL KNEES] Respiratory Rate [Bilateral Shoulder] Respiratory Rate [RIGHT HAND / WRIST] Blood Pressure 132/91 132/91 132/91 O2 Sat by Pulse 98 97 99 Oximetry O2 Sat by Pulse Oximetry [ Anterior Bilateral Throughout] 10/14/16 10/14/16 10/14/16 08:11 08:21 08:31 Temperature Pulse Rate 127 H 132 H 136 H Respiratory 31 H 45 H 37 H Rate Respiratory Rate [BILATERAL KNEES] Respiratory Rate [Bilateral Shoulder] Respiratory Rate [RIGHT HAND / WRIST] Blood Pressure 139/92 139/92 O2 Sat by Pulse 98 83 L 53 L Oximetry O2 Sat by Pulse Oximetry [ Anterior Bilateral Throughout] 10/14/16 10/14/16 08:41 08:51 Temperature Pulse Rate 126 H Respiratory 32 H 39 H Rate Respiratory Rate [BILATERAL KNEES] Respiratory Rate [Bilateral Shoulder] Respiratory Rate [RIGHT HAND / WRIST] Blood Pressure 139/92 139/92 O2 Sat by Pulse 100 Oximetry O2 Sat by Pulse Oximetry [ Anterior Bilateral Throughout] - General Appearance General appearance: well-developed, well-nourished EENT: ATNC, PERRL, mucous membranes moist Neck: no JVD, no carotid bruit Respiratory: Present: Clear to Ascultation. Absent: Rales, Ronchi Cardiology: tachycardia, S1S2 Gastrointestinal: normoactive bowel sounds, no tenderness, no distended, no guarding Integumentary: no rash, warm and dry Neurologic: asterixis, confused, disoriented Musculoskeletal: other (1-2+ pitting edema in BLE) Psychiatric: other (confused) - Lab 10/14/16 04:34 10/14/16 03:00 Most recent lab results Calcium 8.2 mg/dL (8.4-10.2) L 10/14/16 03:00 Phosphorus 6.60 mg/dL (2.5-4.5) H 10/14/16 03:00
--- NOTE | 2016-10-14 10:44 | Event Note ---
Date: 10/14/16 Cardiology consult to dictated. #1? Dyspnea possible congestive heart failure. #2 renal failure dialysis in progress #3 pancytopenia with severe anemia etiology uncertain #4 altered mental status? CVA Will review the echocardiogram. Chest x-ray did not show significant congestive heart failure or cardiomegaly. EKG shows sinus rhythm with left ventricular hypertrophy and sinus tachycardia. Patient will be monitored and followed closely. Prognosis is guarded due to multiple medical issues. Thank you Dr. KURT Kraft
--- NOTE | 2016-10-14 10:48 | Consultation ---
History of Present Illness Consult date: 10/14/16 Requesting physician: MIGUEL ÁNGEL NATHAN Reason for consult: other (PULMONARY/CCM CONSULT NOTE (Full dictation # )) History of present illness: PULMONARY/CCM CONSULT NOTE (Full note dictated # [id number]) Please see dictated notes for full details Past History Past Medical History: No medical history, other (Had shingles in November 25-) Past Surgical History: No surgical history Social history: , full code, other (Patienti s and lives with his ). denies: smoking, alcohol abuse, prescription drug abuse, IV drug use Family history: no significant family history Medications and Allergies Allergies Allergy/AdvReac Type Severity Reaction Status Date / Time No Known Allergies Allergy Unverified 10/13/16 09:41 Home Medications Medication Instructions Recorded Confirmed Last Taken Type Naproxen Sodium [Aleve TAB] 2 tab PO Q8H PRN 10/13/16 10/13/16 10/12/16 14:00 History Active Meds: Active Medications Acetaminophen (Tylenol) 650 mg PO Q6H PRN PRN Reason: pain Last Admin: 10/14/16 01:19 Dose: 650 mg Dextrose (D50w (25gm)) 25 ml IV PRN PRN PRN Reason: Hypoglycemia Last Admin: 10/14/16 05:45 Dose: 25 ml Heparin Sodium (Porcine) (Heparin) 5,000 unit IV ROD PRN PRN Reason: hemodialysis Last Admin: 10/14/16 00:45 Dose: 5,000 unit Sodium Chloride (Nacl 0.9%) 100 mls @ 999 mls/hr IV ROD PRN PRN Reason: Hypotension Sodium Chloride (Nacl 0.9%) 100 mls @ 999 mls/hr IV ROD PRN PRN Reason: Hypotension Sodium Chloride (Nacl 0.9%) 100 mls @ 999 mls/hr IV ROD PRN PRN Reason: Hypotension Sodium Bicarbonate (Sodium Bicarbonate) 650 mg PO BID EDWINA Last Admin: 10/14/16 01:18 Dose: 650 mg Physical Examination Vital signs: Vital Signs Temp Pulse Resp BP Pulse Ox 98.2 F 89 18 133/86 98 10/13/16 09:38 10/13/16 09:38 10/13/16 09:38 10/13/16 09:38 10/13/16 09:38 Results - Laboratory Findings CBC and BMP: 10/14/16 04:34 10/14/16 15:33 Abnormal lab findings: Abnormal Labs 10/13/16 10/13/16 10/13/16 21:40 22:05 23:18 WBC RBC Hgb Hct RDW Plt Count Lymphocytes % (Manual) Seg Neutrophils # Man Lymphocytes # (Manual) Fibrinogen Carbon Dioxide BUN Creatinine Glucose POC Glucose 52 L 43 L 113 H Uric Acid Calcium Phosphorus Iron TIBC Lactate Dehydrogenase 10/14/16 10/14/16 10/14/16 03:00 03:00 03:00 WBC RBC Hgb Hct RDW Plt Count Lymphocytes % (Manual) Seg Neutrophils # Man Lymphocytes # (Manual) Fibrinogen Carbon Dioxide 18 L BUN 73 H Creatinine 9.8 H Glucose 59 L POC Glucose Uric Acid 8.0 H Calcium 8.2 L Phosphorus 6.60 H Iron 13 L TIBC 160 L Lactate Dehydrogenase 406 H 10/14/16 10/14/16 10/14/16 04:34 05:27 06:29 WBC 1.3 L* RBC 2.33 L Hgb 7.3 L Hct 21.7 L RDW 19.8 H Plt Count 99 L Lymphocytes % (Manual) 3.0 L Seg Neutrophils # Man 0.9 L Lymphocytes # (Manual) 0.0 L Fibrinogen Carbon Dioxide BUN Creatinine Glucose POC Glucose < 40 L 63 L Uric Acid Calcium Phosphorus Iron TIBC Lactate Dehydrogenase 10/14/16 10/14/16 07:34 09:58 WBC RBC Hgb Hct RDW Plt Count Lymphocytes % (Manual) Seg Neutrophils # Man Lymphocytes # (Manual) Fibrinogen 557 H Carbon Dioxide BUN Creatinine Glucose POC Glucose < 40 L Uric Acid Calcium Phosphorus Iron TIBC Lactate Dehydrogenase
[2016-10-14 10:53] LABS: Bilirubin,Direct 1.1 mg/dL (0-0.2); Bilirubin,Indirect 0.2 mg/dL; Bilirubin,Total 1.3 mg/dL (0.1-1.2)
[2016-10-14] MEDS ORDERED: ZOFRAN IV PRN (11:33)
[2016-10-14] MEDS ORDERED: D10W 1,000 ML IV SCH ×2 (12:00→18:00)
[2016-10-14] MEDS ORDERED: PEPCID PO SCH (12:00)
[2016-10-14] MEDS ORDERED: PEPCID IV SCH (12:00)
[2016-10-14] MEDS ORDERED: HEPARIN SUB-Q SCH (14:00)
[2016-10-14] MEDS ORDERED: HALDOL IM PRN (14:42)
[2016-10-14] MEDS ORDERED: NACL 0.9% 1000 ML 4,000 ML IV ONE (14:47)
[2016-10-14] MEDS ORDERED: VANCOMYCIN PHARMACY TO DOSE IV SCH (15:00)
[2016-10-14] MEDS ORDERED: VANCOMYCIN/NS 1 GM/250 ML 1 GM/250 ML BAG IV SCH (15:00)
--- NOTE | 2016-10-14 15:42 | Vascular Lab Report ---
LOWER EXTREMITY VENOUS DUPLEX: REASON FOR EXAM: Leg swelling. COMMENTS ON THE RIGHT: All veins visualized are freely compressible without evidence of internal echogenicity. Flow is spontaneous and phasic throughout. COMMENTS ON THE LEFT: All veins visualized are freely compressible without evidence of internal echogenicity. Flow is spontaneous and phasic throughout. IMPRESSION: No evidence of acute or chronic deep venous thrombosis in either lower extremity.
--- NOTE | 2016-10-14 15:45 | Vascular Lab Report ---
RIGHT UPPER EXTREMITY VENOUS DUPLEX: REASON FOR EXAM: Right arm swelling COMMENTS ON THE RIGHT: All arm veins visualized are freely compressible without evidence of internal echogenicity. The subclavian and internal jugular veins are free of thrombus. Flow is spontaneous and phasic throughout. COMMENTS ON THE LEFT: The subclavian and internal jugular veins are free of thrombus. IMPRESSION: No evidence of acute or chronic deep venous thrombosis in the right upper extremity.
[2016-10-14] MEDS ORDERED: VANCOMYCIN 1,250 MG in NACL 0.9% 250ML 250 ML IV ONE (16:00)
--- NOTE | 2016-10-14 16:15 | Progress Note ---
Assessment and Plan Assessment and plan: 61-year-old -Citizen Of [place] male with no significant past medical history presented to the emergency department complaining of bilateral leg swelling that worsened for the last 4 days. The swelling is progressed gradually. Patient denied shortness of breath, orthopenia, PND, palpitations or dizziness. Patient denied bleeding from any sites of his body. Patient has never seen a physician for the last 5 years. Patient checked his blood pressure regularly at [facility] was usually in the normal limit. Patient has been taking Aleve since Monday for leg swelling. Patient denied any chest pain. * Acute metabolic encephalopathy * Pancytopenia [leukopenia, severe anemia, thrombocytopenia] POSSIBLE LYMPHOMA * End-stage renal disease * Lactic acidosis * Probable TTE * persistent hypoglycemia * Acute congestive heart failure possible systolic in nature * SEPSIS-HYPOTHERMIA plan: * Continue supportive care in the ICU, discussed with teller supervisor. * Nephrology and oncology WILL consult infectious disease and recycling specialist. * We'll obtain MRI once patient clinically stable. * The patient on D10 * picc line placement for better access * critically ill patient * if no neurology improvement will obtain Neurology eval * Eval for possibly hemolytic syndrome considering * peripheral smear * DVT/GI prophy * plan of care discussed in detail with spouse * 35 mins critical care time spent. History Interval history: Patient seen and examined this morning in no acute distress but significantly confused. No other acute events reported by nursing staff except for recurrent hypoglycemic state. Spouse at bedside. Hospitalist Physical - Physical exam Narrative exam: VITAL SIGNS: Reviewed. GENERAL: The patient appeared well nourished and normally developed. Vital signs as documented. HEAD: No signs of head trauma. EYES: Pupils are equal. Extraocular motions intact. EARS: Hearing grossly intact. MOUTH: Oropharynx is normal. NECK: No adenopathy, no JVD. CHEST: Chest with clear breath sounds bilaterally. No wheezes, rales, or rhonchi. CARDIAC: Regular rate and rhythm. S1 and S2, without murmurs, gallops, or rubs. VASCULAR: EDEMA UPPER EXT AND LOWER +2. Peripheral pulses normal and equal in all extremities. ABDOMEN: Soft, without detectable tenderness. No sign of distention. No rebound or guarding, and no masses palpated. Bowel Sounds normal. MUSCULOSKELETAL: Good range of motion of all major joints. Extremities without clubbing, cyanosis. +2 EDEMA UPPER AND LOWER EXT. NEUROLOGIC EXAM: Awake but lethargic, oriented 1 to person intermittently confused. No focal sensory or strength deficits. Speech normal. Follows some commands. PSYCHIATRIC: Mood normal. SKIN: No rash or lesions. - Constitutional Vitals: Temp Pulse Resp BP Pulse Ox 97.7 F 118 H 29 H 176/123 100 10/14/16 12:37 10/14/16 12:37 10/14/16 12:37 10/14/16 12:37 10/14/16 08:51 General appearance: Present: mild distress, well-nourished Results - Labs CBC & Chem 7: 10/14/16 04:34 10/14/16 03:00 Labs: Laboratory Last Values WBC 1.3 K/mm3 (4.5-11.0) L* 10/14/16 04:34 RBC 2.33 M/mm3 (3.65-5.03) L 10/14/16 04:34 Hgb 7.3 gm/dl (11.8-15.2) L 10/14/16 04:34 Hct 21.7 % (35.5-45.6) L 10/14/16 04:34 MCV 93 fl (84-94) D 10/14/16 04:34 MCH 31 pg (28-32) 10/14/16 04:34 MCHC 34 % (32-34) 10/14/16 04:34 RDW 19.8 % (13.2-15.2) H 10/14/16 04:34 Plt Count 99 K/mm3 (140-440) L 10/14/16 04:34 Lymph % (Auto) Paint Technician 10/14/16 04:34 Wilkinson % (Auto) Paint Technician 10/14/16 04:34 Eos % (Auto) Paint Technician 10/14/16 04:34 Baso % (Auto) Paint Technician 10/14/16 04:34 Lymph # Paint Technician 10/14/16 04:34 Wilkinson # Paint Technician 10/14/16 04:34 Eos # Paint Technician 10/14/16 04:34 Baso # Paint Technician 10/14/16 04:34 Add Manual Diff Complete 10/14/16 04:34 Total Counted 100 10/14/16 04:34 Seg Neutrophils % Paint Technician 10/14/16 04:34 Seg Neuts % (Manual) 67.0 % (40.0-70.0) 10/14/16 04:34 Band Neutrophils % 26.0 % 10/14/16 04:34 Lymphocytes % (Manual) 3.0 % (13.4-35.0) L 10/14/16 04:34 Reactive Lymphs % (Man) 0 % 10/14/16 04:34 Monocytes % (Manual) 4.0 % (0.0-7.3) 10/14/16 04:34 Eosinophils % (Manual) 0 % (0.0-4.3) 10/14/16 04:34 Basophils % (Manual) 0 % (0.0-1.8) 10/14/16 04:34 Metamyelocytes % 0 % 10/14/16 04:34 Myelocytes % 0 % 10/14/16 04:34 Promyelocytes % 0 % 10/14/16 04:34 Blast Cells % 0 % 10/14/16 04:34 Nucleated RBC % Not Reportable 10/14/16 04:34 Seg Neutrophils # Paint Technician 10/14/16 04:34 Seg Neutrophils # Man 0.9 K/mm3 (1.8-7.7) L 10/14/16 04:34 Band Neutrophils # 0.3 K/mm3 10/14/16 04:34 Lymphocytes # (Manual) 0.0 K/mm3 (1.2-5.4) L 10/14/16 04:34 Abs React Lymphs (Man) 0.0 K/mm3 10/14/16 04:34 Monocytes # (Manual) 0.1 K/mm3 (0.0-0.8) 10/14/16 04:34 Eosinophils # (Manual) 0.0 K/mm3 (0.0-0.4) 10/14/16 04:34 Basophils # (Manual) 0.0 K/mm3 (0.0-0.1) 10/14/16 04:34 Metamyelocytes # 0.0 K/mm3 10/14/16 04:34 Myelocytes # 0.0 K/mm3 10/14/16 04:34 Promyelocytes # 0.0 K/mm3 10/14/16 04:34 Blast Cells # 0.0 K/mm3 10/14/16 04:34 WBC Morphology Not Reportable 10/14/16 04:34 Hypersegmented Neuts Not Reportable 10/14/16 04:34 Hyposegmented Neuts Not Reportable 10/14/16 04:34 Hypogranular Neuts Not Reportable 10/14/16 04:34 Smudge Cells Not Reportable 10/14/16 04:34 Toxic Granulation Not Reportable 10/14/16 04:34 Toxic Vacuolation Not Reportable 10/14/16 04:34 Dohle Bodies Not Reportable 10/14/16 04:34 Pelger-Huet Anomaly Not Reportable 10/14/16 04:34 Madhu Rods Not Reportable 10/14/16 04:34 Platelet Estimate Consistent w auto 10/14/16 04:34 Clumped Platelets Not Reportable 10/14/16 04:34 Plt Clumps, EDTA Not Reportable 10/14/16 04:34 Large Platelets 1+ 10/14/16 04:34 Giant Platelets Not Reportable 10/14/16 04:34 Platelet Satelliting Not Reportable 10/14/16 04:34 Plt Morphology Comment Not Reportable 10/14/16 04:34 RBC Morphology Not Reportable 10/14/16 04:34 Dimorphic RBCs Not Reportable 10/14/16 04:34 Polychromasia Few 10/14/16 04:34 Hypochromasia Not Reportable 10/14/16 04:34 Poikilocytosis Not Reportable 10/14/16 04:34 Anisocytosis 1+ 10/14/16 04:34 Microcytosis Not Reportable 10/14/16 04:34 Macrocytosis Few 10/14/16 04:34 Spherocytes Not Reportable 10/14/16 04:34 Pappenheimer Bodies Not Reportable 10/14/16 04:34 Sickle Cells Not Reportable 10/14/16 04:34 Target Cells Not Reportable 10/14/16 04:34 Tear Drop Cells Rare 10/14/16 04:34 Ovalocytes 1+ 10/14/16 04:34 Helmet Cells Not Reportable 10/14/16 04:34 Goodman-Nuevo Bodies Not Reportable 10/14/16 04:34 Albion Rings Not Reportable 10/14/16 04:34 Sabrina Cells Not Reportable 10/14/16 04:34 Bite Cells Not Reportable 10/14/16 04:34 Crenated Cell Not Reportable 10/14/16 04:34 Elliptocytes Few 10/14/16 04:34 Acanthocytes (Spur) Not Reportable 10/14/16 04:34 Rouleaux Not Reportable 10/14/16 04:34 Hemoglobin C Crystals Not Reportable 10/14/16 04:34 Schistocytes Not Reportable 10/14/16 04:34 Malaria parasites Not Reportable 10/14/16 04:34 ESR 77 mm/Hr (0-20) 10/14/16 04:34 Pal Bodies Not Reportable 10/14/16 04:34 Hem Pathologist Commnt No 10/14/16 04:34 Fibrinogen 557 mg/dl (211-480) H 10/14/16 09:58 Sodium 130 mmol/L (137-145) L 10/13/16 10:14 Potassium 4.2 mmol/L (3.6-5.0) D 10/14/16 03:00 Chloride 89.7 mmol/L (98-107) L 10/13/16 10:14 Carbon Dioxide 18 mmol/L (22-30) L 10/14/16 03:00 Anion Gap 31 mmol/L 10/13/16 10:14 BUN 73 mg/dL (9-20) H 10/14/16 03:00 Creatinine 9.8 mg/dL (0.8-1.5) H 10/14/16 03:00 Estimated GFR 5 ml/min 10/14/16 03:00 BUN/Creatinine Ratio 7.44 % 10/14/16 03:00 Glucose 59 mg/dL (75-100) L 10/14/16 03:00 POC Glucose < 40 (70-105) L 10/14/16 15:02 Lactic Acid 9.60 mmol/L (0.7-2.0) H* 10/14/16 12:52 Uric Acid 8.0 mg/dL (3.5-7.6) H 10/14/16 03:00 Calcium 8.2 mg/dL (8.4-10.2) L 10/14/16 03:00 Phosphorus 6.60 mg/dL (2.5-4.5) H 10/14/16 03:00 Iron 13 ug/dL (49-181) L 10/14/16 03:00 TIBC 160 mcg/dL (250-450) L 10/14/16 03:00 Total Bilirubin 1.30 mg/dL (0.1-1.2) H 10/14/16 09:58 Direct Bilirubin 1.1 mg/dL (0-0.2) H 10/14/16 09:58 Indirect Bilirubin 0.2 mg/dL 10/14/16 09:58 AST 17 units/L (5-40) 10/13/16 10:14 ALT 24 units/L (7-56) 10/13/16 10:14 Alkaline Phosphatase 76 units/L (35-129) 10/13/16 10:14 Lactate Dehydrogenase 406 units/L (91-180) H 10/14/16 03:00 Troponin T 0.079 ng/mL (0.00-0.029) H 10/13/16 10:14 C-Reactive Protein 40.40 mg/dL (0.00-1.30) H 10/14/16 12:52 NT-Pro-B Natriuret Pep > 30689 pg/mL (0-900) H 10/13/16 10:14 Total Protein 6.4 g/dL (6.3-8.2) 10/13/16 10:14 Albumin 2.3 g/dL (3.9-5) L 10/13/16 10:14 Albumin/Globulin Ratio 0.6 % 10/13/16 10:14 Triglycerides 119 mg/dL (2-149) 10/13/16 10:14 Cholesterol 71 mg/dL (50-199) 10/13/16 10:14 LDL Cholesterol Direct 41 mg/dL (50-130) L 10/13/16 10:14 HDL Cholesterol 7 mg/dL (40-59) L 10/13/16 10:14 Cholesterol/HDL Ratio 10.14 % 10/13/16 10:14 Vitamin B12 893.9 pg/mL (211-911) 10/14/16 03:00 Hep Bs Antigen Non-reactive (Negative) 10/13/16 14:50 Hepatitis C Antibody Non-reactive (NonReactive) 10/13/16 14:50 HIV 1&2 Antibody Rapid Non react (Non React) 10/13/16 14:50 HIV P24 Antigen Non react (Non React) 10/13/16 14:50 Schistocytes Smear Few 10/13/16 14:50 Blood Type O POSITIVE 10/13/16 14:05 Antibody Screen TNR 10/13/16 14:05 MADIHA Antibody Screen Negative 10/13/16 14:05 Direct Antiglob Test Negative 10/14/16 03:00 ELAINE, Poly Interpret Negative 10/14/16 03:00 Crossmatch See Detail 10/13/16 14:05 - Imaging and Cardiology CT Scan - head: image reviewed (some hypodensities noted)
[2016-10-14] MEDS ORDERED: D50W (25GM) IV ONE (17:21)
[2016-10-14] MEDS ORDERED: D10W IV ONE ×2 (17:45→18:00)
[2016-10-14] MEDS ORDERED: NACL IV SCH (17:45)
[2016-10-14] MEDS ORDERED: NACL IV ONE ×2 (17:45→18:00)
[2016-10-14] MEDS ORDERED: D10W IV SCH (17:45)
[2016-10-14] MEDS: ZOSYN/NS 2.25 GM/50ML 2.25 GM/50 ML BAG IV SCH ×2 (18:57→21:10)
[2016-10-14 21:51] LABS: INR 2.71 (0.87-1.13)
[2016-10-14] MEDS ORDERED: ZOSYN/NS 4.5GM/100ML 4.5 GM/100 ML VIAL IV SCH (22:00)
--- NOTE | 2016-10-14 22:49 | Consultation ---
History of Present Illness - Reason for Consult Consult date: 10/14/16 - History of Present Illness Patient seen/examined, labs reviewed, as well as consultants notes. most of the w/up labs still pending results. He had HD , and the skeletal survey.The latest diff, did not show schistocytes., will continue to monitor his labe. If no clear clue, he will need kidney bx to r/o microangiopathic /hemolysis,will also check for PNH,and [id number]. Past History Past Medical History: No medical history, other (Had shingles in November 27-) Past Surgical History: No surgical history Social history: , full code, other (Patienti s and lives with his ). denies: smoking, alcohol abuse, prescription drug abuse, IV drug use Family history: no significant family history Medications and Allergies Allergies Allergy/AdvReac Type Severity Reaction Status Date / Time No Known Allergies Allergy Unverified 10/13/16 09:41 Home Medications Medication Instructions Recorded Confirmed Last Taken Type Naproxen Sodium [Aleve TAB] 2 tab PO Q8H PRN 10/13/16 10/13/16 10/12/16 14:00 History Active Meds: Active Medications Acetaminophen (Tylenol) 650 mg PO Q6H PRN PRN Reason: pain Last Admin: 10/14/16 21:13 Dose: 650 mg Dextrose (D50w (25gm)) 25 ml IV PRN PRN PRN Reason: Hypoglycemia Last Admin: 10/14/16 13:21 Dose: 25 ml Famotidine (Pepcid) 20 mg PO QDAY EDWINA Last Admin: 10/14/16 13:11 Dose: 20 mg Haloperidol Lactate (Haldol) 5 mg IM Q6H PRN PRN Reason: Agitation Last Admin: 10/14/16 21:11 Dose: 5 mg Heparin Sodium (Porcine) (Heparin) 5,000 unit IV ROD PRN PRN Reason: hemodialysis Last Admin: 10/14/16 13:39 Dose: 5,000 unit Sodium Chloride (Nacl 0.9%) 100 mls @ 999 mls/hr IV ROD PRN PRN Reason: Hypotension Sodium Chloride (Nacl 0.9%) 100 mls @ 999 mls/hr IV ROD PRN PRN Reason: Hypotension Sodium Chloride (Nacl 0.9%) 100 mls @ 999 mls/hr IV ROD PRN PRN Reason: Hypotension Piperacillin Sod/Tazobactam Sod (Zosyn/Ns 2.25 Gm/50ml) 2.25 gm in 50 mls @ 100 mls/hr IV Q8HR [facility] Last Admin: 10/14/16 21:10 Dose: 100 mls/hr Sodium Chloride 153.84 meq/ (Dextrose) 1,038.46 mls @ 125 mls/hr IV DIRECT ONE Stop: 10/15/16 02:18 Last Admin: 10/14/16 18:13 Dose: 125 mls/hr Ondansetron HCl (Zofran) 4 mg IV Q8H PRN PRN Reason: Nausea And Vomiting Sodium Bicarbonate (Sodium Bicarbonate) 650 mg PO BID [facility] Last Admin: 10/14/16 21:10 Dose: 650 mg Vancomycin HCl (Vancomycin Pharmacy To Dose) 1 each IV PKCONSULT EDWINA PRN Reason: Protocol Review of Systems Constitutional: weakness Neurological: confusion Exam - Constitutional Vitals: Temp Pulse Resp BP Pulse Ox 97.7 F 102 H 32 H 96/69 96 10/14/16 12:37 10/14/16 21:11 10/14/16 21:21 10/14/16 21:21 10/14/16 12:00 General appearance: Present: mild distress - EENT Eyes: Present: PERRL ENT: hearing intact, clear oral mucosa - Neck Neck: Present: supple, normal ROM - Respiratory Respiratory effort: normal Respiratory: bilateral: CTA - Cardiovascular Heart Sounds: Present: S1 & S2. Absent: rub, click - Extremities Extremities: pulses symmetrical, No edema Peripheral Pulses: within normal limits - Abdominal General gastrointestinal: Present: soft, non-tender, non-distended, normal bowel sounds Male genitourinary: Present: deferred - Rectal Rectal Exam: deferred - Integumentary Integumentary: Present: clear, warm, dry - Musculoskeletal Musculoskeletal: gait normal, strength equal bilaterally - Psychiatric Psychiatric: appropriate mood/affect - Neurologic Neurologic: moves all extremities Results - Labs CBC & Chem 7: 10/14/16 04:34 10/14/16 15:33 Labs: Abnormal lab results 10/13/16 10/14/16 10/14/16 Range/Units 23:18 03:00 03:00 WBC (4.5-11.0) K/mm3 RBC (3.65-5.03) M/mm3 Hgb (11.8-15.2) gm/dl Hct (35.5-45.6) % RDW (13.2-15.2) % Plt Count (140-440) K/mm3 Lymphocytes % (Manual) (13.4-35.0) % Seg Neutrophils # Man (1.8-7.7) K/mm3 Lymphocytes # (Manual) (1.2-5.4) K/mm3 PT (12.2-14.9) Sec. INR (0.87-1.13) Fibrinogen (211-480) mg/dl Carbon Dioxide 18 L (22-30) mmol/L BUN 73 H (9-20) mg/dL Creatinine 9.8 H (0.8-1.5) mg/dL Glucose 59 L (75-100) mg/dL POC Glucose 113 H (70-105) Lactic Acid (0.7-2.0) mmol/L Uric Acid (3.5-7.6) mg/dL Calcium 8.2 L (8.4-10.2) mg/dL Phosphorus 6.60 H (2.5-4.5) mg/dL Iron 13 L (49-181) ug/dL TIBC 160 L (250-450) mcg/dL Total Bilirubin (0.1-1.2) mg/dL Direct Bilirubin (0-0.2) mg/dL Lactate Dehydrogenase 406 H (91-180) units/L C-Reactive Protein (0.00-1.30) mg/dL 10/14/16 10/14/16 10/14/16 Range/Units 03:00 04:34 05:27 WBC 1.3 L* (4.5-11.0) K/mm3 RBC 2.33 L (3.65-5.03) M/mm3 Hgb 7.3 L (11.8-15.2) gm/dl Hct 21.7 L (35.5-45.6) % RDW 19.8 H (13.2-15.2) % Plt Count 99 L (140-440) K/mm3 Lymphocytes % (Manual) 3.0 L (13.4-35.0) % Seg Neutrophils # Man 0.9 L (1.8-7.7) K/mm3 Lymphocytes # (Manual) 0.0 L (1.2-5.4) K/mm3 PT (12.2-14.9) Sec. INR (0.87-1.13) Fibrinogen (211-480) mg/dl Carbon Dioxide (22-30) mmol/L BUN (9-20) mg/dL Creatinine (0.8-1.5) mg/dL Glucose (75-100) mg/dL POC Glucose < 40 L (70-105) Lactic Acid (0.7-2.0) mmol/L Uric Acid 8.0 H (3.5-7.6) mg/dL Calcium (8.4-10.2) mg/dL Phosphorus (2.5-4.5) mg/dL Iron (49-181) ug/dL TIBC (250-450) mcg/dL Total Bilirubin (0.1-1.2) mg/dL Direct Bilirubin (0-0.2) mg/dL Lactate Dehydrogenase (91-180) units/L C-Reactive Protein (0.00-1.30) mg/dL 10/14/16 10/14/16 10/14/16 Range/Units 06:29 07:34 09:58 WBC (4.5-11.0) K/mm3 RBC (3.65-5.03) M/mm3 Hgb (11.8-15.2) gm/dl Hct (35.5-45.6) % RDW (13.2-15.2) % Plt Count (140-440) K/mm3 Lymphocytes % (Manual) (13.4-35.0) % Seg Neutrophils # Man (1.8-7.7) K/mm3 Lymphocytes # (Manual) (1.2-5.4) K/mm3 PT (12.2-14.9) Sec. INR (0.87-1.13) Fibrinogen 557 H (211-480) mg/dl Carbon Dioxide (22-30) mmol/L BUN (9-20) mg/dL Creatinine (0.8-1.5) mg/dL Glucose (75-100) mg/dL POC Glucose 63 L < 40 L (70-105) Lactic Acid (0.7-2.0) mmol/L Uric Acid (3.5-7.6) mg/dL Calcium (8.4-10.2) mg/dL Phosphorus (2.5-4.5) mg/dL Iron (49-181) ug/dL TIBC (250-450) mcg/dL Total Bilirubin (0.1-1.2) mg/dL Direct Bilirubin (0-0.2) mg/dL Lactate Dehydrogenase (91-180) units/L C-Reactive Protein (0.00-1.30) mg/dL 10/14/16 10/14/16 10/14/16 Range/Units 09:58 10:57 11:15 WBC (4.5-11.0) K/mm3 RBC (3.65-5.03) M/mm3 Hgb (11.8-15.2) gm/dl Hct (35.5-45.6) % RDW (13.2-15.2) % Plt Count (140-440) K/mm3 Lymphocytes % (Manual) (13.4-35.0) % Seg Neutrophils # Man (1.8-7.7) K/mm3 Lymphocytes # (Manual) (1.2-5.4) K/mm3 PT (12.2-14.9) Sec. INR (0.87-1.13) Fibrinogen (211-480) mg/dl Carbon Dioxide (22-30) mmol/L BUN (9-20) mg/dL Creatinine (0.8-1.5) mg/dL Glucose (75-100) mg/dL POC Glucose < 40 L < 40 L (70-105) Lactic Acid (0.7-2.0) mmol/L Uric Acid (3.5-7.6) mg/dL Calcium (8.4-10.2) mg/dL Phosphorus (2.5-4.5) mg/dL Iron (49-181) ug/dL TIBC (250-450) mcg/dL Total Bilirubin 1.30 H (0.1-1.2) mg/dL Direct Bilirubin 1.1 H (0-0.2) mg/dL Lactate Dehydrogenase (91-180) units/L C-Reactive Protein (0.00-1.30) mg/dL 10/14/16 10/14/16 10/14/16 Range/Units 12:52 12:52 13:17 WBC (4.5-11.0) K/mm3 RBC (3.65-5.03) M/mm3 Hgb (11.8-15.2) gm/dl Hct (35.5-45.6) % RDW (13.2-15.2) % Plt Count (140-440) K/mm3 Lymphocytes % (Manual) (13.4-35.0) % Seg Neutrophils # Man (1.8-7.7) K/mm3 Lymphocytes # (Manual) (1.2-5.4) K/mm3 PT (12.2-14.9) Sec. INR (0.87-1.13) Fibrinogen (211-480) mg/dl Carbon Dioxide (22-30) mmol/L BUN (9-20) mg/dL Creatinine (0.8-1.5) mg/dL Glucose (75-100) mg/dL POC Glucose < 40 L (70-105) Lactic Acid 9.60 H* (0.7-2.0) mmol/L Uric Acid (3.5-7.6) mg/dL Calcium (8.4-10.2) mg/dL Phosphorus (2.5-4.5) mg/dL Iron (49-181) ug/dL TIBC (250-450) mcg/dL Total Bilirubin (0.1-1.2) mg/dL Direct Bilirubin (0-0.2) mg/dL Lactate Dehydrogenase (91-180) units/L C-Reactive Protein 40.40 H (0.00-1.30) mg/dL 10/14/16 10/14/16 10/14/16 Range/Units 14:12 15:02 15:33 WBC (4.5-11.0) K/mm3 RBC (3.65-5.03) M/mm3 Hgb (11.8-15.2) gm/dl Hct (35.5-45.6) % RDW (13.2-15.2) % Plt Count (140-440) K/mm3 Lymphocytes % (Manual) (13.4-35.0) % Seg Neutrophils # Man (1.8-7.7) K/mm3 Lymphocytes # (Manual) (1.2-5.4) K/mm3 PT (12.2-14.9) Sec. INR (0.87-1.13) Fibrinogen (211-480) mg/dl Carbon Dioxide (22-30) mmol/L BUN (9-20) mg/dL Creatinine (0.8-1.5) mg/dL Glucose 19 L* (75-100) mg/dL POC Glucose < 40 L < 40 L (70-105) Lactic Acid (0.7-2.0) mmol/L Uric Acid (3.5-7.6) mg/dL Calcium (8.4-10.2) mg/dL Phosphorus (2.5-4.5) mg/dL Iron (49-181) ug/dL TIBC (250-450) mcg/dL Total Bilirubin (0.1-1.2) mg/dL Direct Bilirubin (0-0.2) mg/dL Lactate Dehydrogenase (91-180) units/L C-Reactive Protein (0.00-1.30) mg/dL 10/14/16 10/14/16 10/14/16 Range/Units 15:33 17:14 18:03 WBC (4.5-11.0) K/mm3 RBC (3.65-5.03) M/mm3 Hgb (11.8-15.2) gm/dl Hct (35.5-45.6) % RDW (13.2-15.2) % Plt Count (140-440) K/mm3 Lymphocytes % (Manual) (13.4-35.0) % Seg Neutrophils # Man (1.8-7.7) K/mm3 Lymphocytes # (Manual) (1.2-5.4) K/mm3 PT (12.2-14.9) Sec. INR (0.87-1.13) Fibrinogen (211-480) mg/dl Carbon Dioxide (22-30) mmol/L BUN (9-20) mg/dL Creatinine (0.8-1.5) mg/dL Glucose (75-100) mg/dL POC Glucose < 40 L 57 L (70-105) Lactic Acid 11.60 H* (0.7-2.0) mmol/L Uric Acid (3.5-7.6) mg/dL Calcium (8.4-10.2) mg/dL Phosphorus (2.5-4.5) mg/dL Iron (49-181) ug/dL TIBC (250-450) mcg/dL Total Bilirubin (0.1-1.2) mg/dL Direct Bilirubin (0-0.2) mg/dL Lactate Dehydrogenase (91-180) units/L C-Reactive Protein (0.00-1.30) mg/dL 10/14/16 Range/Units 21:25 WBC (4.5-11.0) K/mm3 RBC (3.65-5.03) M/mm3 Hgb (11.8-15.2) gm/dl Hct (35.5-45.6) % RDW (13.2-15.2) % Plt Count (140-440) K/mm3 Lymphocytes % (Manual) (13.4-35.0) % Seg Neutrophils # Man (1.8-7.7) K/mm3 Lymphocytes # (Manual) (1.2-5.4) K/mm3 PT 28.9 H (12.2-14.9) Sec. INR 2.71 H (0.87-1.13) Fibrinogen (211-480) mg/dl Carbon Dioxide (22-30) mmol/L BUN (9-20) mg/dL Creatinine (0.8-1.5) mg/dL Glucose (75-100) mg/dL POC Glucose (70-105) Lactic Acid (0.7-2.0) mmol/L Uric Acid (3.5-7.6) mg/dL Calcium (8.4-10.2) mg/dL Phosphorus (2.5-4.5) mg/dL Iron (49-181) ug/dL TIBC (250-450) mcg/dL Total Bilirubin (0.1-1.2) mg/dL Direct Bilirubin (0-0.2) mg/dL Lactate Dehydrogenase (91-180) units/L C-Reactive Protein (0.00-1.30) mg/dL Assessment and Plan - Patient Problems (1) Anemia Current Visit: Yes Status: Acute Qualifiers: Anemia type: unspecified type Iron deficiency anemia type: I Vitamin B12 deficiency anemia type: V Folate deficiency anemia type: F Bone marrow failure anemia type: B Hemolytic anemia type: H Other causes of anemia: O Qualified Code(s): D64.9 - Anemia, unspecified Plan to address problem: For now, he is getting replacement transfusion. see further w/up. (2) Leucopenia Current Visit: Yes Status: Acute Qualifiers: Leukopenia type: unspecified Neutropenia type: N Qualified Code(s): D72.819 - Decreased white blood cell count, unspecified Plan to address problem: will give stimulant if indicated. (3) Renal failure Current Visit: Yes Status: Acute Qualifiers: Renal failure chronicity: acute Acute renal failure type: unspecified Chronic kidney disease stage: C Qualified Code(s): N17.9 - Acute kidney failure, unspecified Plan to address problem: See w/up, and renal service.
--- NOTE | 2016-10-15 03:46 | Consultation ---
HISTORY OF PRESENT ILLNESS: The patient is a 61-year-old gentleman who apparently was very functional until a couple of years ago. He was brought to the Emergency Room with edema and confusion. This apparently has been progressively worsening in the last 4 to 5 days. The patient is currently quite confused and cannot give me any significant historic details. He is in restraints at this time. However, he denies any chest pain. No significant difficulty in breathing. The patient is currently on dialysis and he has been dialyzed once. No previous history of myocardial infarction or congestive heart failure, hypertension or diabetes; however, apparently he has not seen a physician in a long time. No previous history of significant surgeries. Nonsmoker and nonalcoholic. The patient apparently was in [facility] recently. FAMILY HISTORY: Noncontributory. PAST SURGERIES: None. PHYSICAL EXAMINATION: GENERAL: Adult gentleman. The patient is currently restrained and is on dialysis. He is in no acute distress. VITAL SIGNS: Blood pressure 130/92, pulse ox 100, heart rate 110, sinus tachycardia. NECK: Supple. No thyromegaly. Both carotids are palpable and equal. Neck veins are flat. CHEST: Symmetrical. LUNGS: Reduced breath sounds in the bases, otherwise essentially clear. HEART: S1 and S2 are heard well. No significant murmurs are appreciated. ABDOMEN: Soft, nontender, no hepatosplenomegaly. EXTREMITIES: Bilateral 2+ edema is present. No calf tenderness is noted. DIAGNOSTIC DATA: EKG sinus rhythm, left ventricular hypertrophy with associated ST-T changes, current rhythm is noted to be sinus tachycardia. LABORATORY DATA: WBC 1.3, hemoglobin 7.3, potassium 4.2, BUN 73, creatinine 9.8. IMPRESSION: 1. ? Congestive heart failure. 2. Renal failure. 3. Confusion. 4. Pancytopenia. 5. Sinus tachycardia. The patient is seen for cardiac evaluation for possible congestive heart failure. We will obtain an echocardiogram and assess the cardiac function. Chest x-ray itself did not show acute cardiopulmonary issues. The patient will be monitored and followed closely. Overall, prognosis is guarded because of pancytopenia and renal failure. Etiology for the confusion is not clear. MRI of the brain was recommended to rule out for acute infarction. Chronic lacunar infarction present. No acute hemorrhages were noted. The patient will be monitored and followed closely with you. Thank you for allowing me to participate in the care of this gentleman. JOB# [id number] KHRIS/ALMA
[2016-10-15] MEDS: D50W (25GM) IV PRN ×6 (05:39→23:12)
[2016-10-15] MEDS: ZOSYN/NS 2.25 GM/50ML 2.25 GM/50 ML BAG IV SCH ×3 (05:39→21:51)
[2016-10-15 05:47] LABS: Hematocrit 25.8 % (35.5-45.6); Hemoglobin 8.1 gm/dl (11.8-15.2); Mean Corpuscular HGB Conc 31 % (32-34); Mean Corpuscular Hemoglobin 31 pg (28-32); Mean Corpuscular Volume 98 fl (84-94); Red Blood Count 2.62 M/mm3 (3.65-5.03); White Blood Count 7.6 K/mm3 (4.5-11.0)
[2016-10-15 05:49] LABS: Platelet Count 61 K/mm3 (140-440); Red Cell Distribution Width 21.2 % (13.2-15.2)
[2016-10-15 06:24] LABS: BUN/Creatinine Ratio 8.02; Calcium 7.7 mg/dL (8.4-10.2); Chloride 91.4 mmol/L (98-107); Phosphorous 10.1 mg/dL (2.5-4.5); Potassium 5.3 mmol/L (3.6-5.0)
[2016-10-15 06:35] LABS: ISTAT Base Excess -17; ISTAT PCO2 28.9 (35-45); ISTAT PH 7.189 (7.35-7.45); ISTAT PO2 81 (80-105); ISTAT SO2 93; ISTAT TCO2 12
[2016-10-15 07:55] LABS: Basophils % (Manual) 0 % (0.0-1.8); Blastocytes % (Manual) 0 %
[2016-10-15 07:56] LABS: Anisocytosis 1+; Burr Cells Few; Diff Status Complete; Dohle Bodies Few; Elliptocytes Few; Hypochromasia 1+; Large Platelets Few; Platelet Estimate Consistent w Auto; Tear Drop Cells Rare
[2016-10-15] MEDS ORDERED: SODIUM BICARBONATE 150 MEQ in D10W 1,000 ML IV ONE (08:00)
[2016-10-15] MEDS ORDERED: D50W (25GM) IV ONE (08:08)
[2016-10-15] MEDS ORDERED: CORDARONE 150 MG in D5W 97 ML IV ONE (08:31)
[2016-10-15] MEDS: CORDARONE 900 MG in D5W 482 ML IV SCH (09:14)
--- NOTE | 2016-10-15 09:33 | Progress Note ---
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) - s/p dialysis - for plasmapheresis - correct electrolytes - per nephrology - avoid nephrotoxins (3) Metabolic acidosis Current Visit: Yes Status: Acute Plan to address problem: - Lactic Acidosis component - sepsis may be driving force - bicarbonate replacement ongoing - HD/UF per nephrology prescription - empiric broad spectrum AB's (4) CHF (congestive heart failure) Current Visit: Yes Status: Acute Qualifiers: Congestive heart failure type: C Congestive heart failure chronicity: C Plan to address problem: - ECHO consistent with possible infiltrating disease - cardiology consulted - EF 30& - per cardiology otherwise but acutely needs volume resuscitation - will transduce CVP's to guide volume (5) Pancytopenia Current Visit: Yes Status: Acute Plan to address problem: - hematology on case - for plasmapheresis - may need bone marrow evaluation (6) Acute encephalopathy Current Visit: Yes Status: Acute Plan to address problem: - CT brain negative - likely toxic-metabolic encephalopathy (7) Hypoglycemia Current Visit: Yes Status: Acute Plan to address problem: - on D10W with bicarbonate drip - will sauced[place] CT once more stable re: ? insulinoma - suspect sepsis related - will begin systemic steroids (8) Sepsis syndrome Current Visit: Yes Status: Acute Plan to address problem: - on broad spectrum AB's coverage - CRP and lactate remarkable and will be trended - ID consulted (9) Discharge planning issues Current Visit: Yes Status: Acute Plan to address problem: - he remains critically ill on life sustaining interventions including MVS and at risk for further deterioration including - care plan discussed at length with in room ...37' CCT Subjective Date of service: 10/15/16 Principal diagnosis: Sepsis Syndrome; MAHA; RAJESH; CHF Interval history: Seen and examined at bedside; 24 hour events reviewed; nursing and respiratory care staff consulted; no adverse overnight events reported to me; remains with AMS but slightly worse; also continues to be significantly hypoglycemic; also acidosis is worse today; no emesis or overt aspiration; developed A-fib with RVR earlier and to start on amiodarone Objective Vital Signs - 12hr 10/14/16 10/14/16 10/14/16 23:30 23:41 23:51 Temperature Pulse Rate 102 H 99 H 98 H Respiratory 20 19 18 Rate Blood Pressure 111/75 111/75 93/61 O2 Sat by Pulse Oximetry 10/15/16 10/15/16 10/15/16 00:00 00:11 00:21 Temperature 98.5 F Pulse Rate 98 H 98 H 99 H Respiratory 26 H 18 19 Rate Blood Pressure 97/69 97/69 102/69 O2 Sat by Pulse Oximetry 10/15/16 10/15/16 10/15/16 00:30 00:41 00:51 Temperature Pulse Rate 100 H 99 H 99 H Respiratory 20 20 19 Rate Blood Pressure 100/72 100/72 106/74 O2 Sat by Pulse Oximetry 10/15/16 10/15/16 10/15/16 01:00 01:11 01:21 Temperature Pulse Rate 100 H 101 H 101 H Respiratory 19 22 20 Rate Blood Pressure 102/73 102/73 116/75 O2 Sat by Pulse Oximetry 10/15/16 10/15/16 10/15/16 01:30 01:41 01:51 Temperature Pulse Rate 105 H 104 H 105 H Respiratory 20 19 22 Rate Blood Pressure 113/69 113/69 123/71 O2 Sat by Pulse Oximetry 10/15/16 10/15/16 10/15/16 02:00 02:11 02:21 Temperature Pulse Rate 97 H 111 H 99 H Respiratory 18 20 19 Rate Blood Pressure 106/71 106/71 108/73 O2 Sat by Pulse Oximetry 10/15/16 10/15/16 10/15/16 02:30 02:41 02:51 Temperature Pulse Rate 120 H 114 H 99 H Respiratory 20 20 19 Rate Blood Pressure 116/74 116/74 117/71 O2 Sat by Pulse Oximetry 10/15/16 10/15/16 10/15/16 03:00 03:01 03:11 Temperature Pulse Rate 113 H 120 H 107 H Respiratory 18 18 Rate Blood Pressure 107/55 107/55 O2 Sat by Pulse Oximetry 10/15/16 10/15/16 10/15/16 03:21 03:30 03:41 Temperature Pulse Rate 112 H 113 H 109 H Respiratory 20 19 19 Rate Blood Pressure 100/61 110/59 110/59 O2 Sat by Pulse Oximetry 10/15/16 10/15/16 10/15/16 03:51 04:00 04:11 Temperature 98.1 F Pulse Rate 105 H 93 H 91 H Respiratory 19 28 H 20 Rate Blood Pressure 110/54 107/65 107/65 O2 Sat by Pulse Oximetry 10/15/16 10/15/16 10/15/16 04:21 04:30 04:41 Temperature Pulse Rate 97 H 97 H 84 Respiratory 19 20 20 Rate Blood Pressure 94/58 114/57 114/57 O2 Sat by Pulse Oximetry 10/15/16 10/15/16 10/15/16 04:51 05:01 05:10 Temperature Pulse Rate 109 H 99 H 124 H Respiratory 20 19 20 Rate Blood Pressure 94/56 88/61 88/61 O2 Sat by Pulse Oximetry 10/15/16 10/15/16 10/15/16 05:20 05:31 05:41 Temperature Pulse Rate 150 H 157 H 138 H Respiratory 21 19 18 Rate Blood Pressure 88/58 102/64 101/61 O2 Sat by Pulse Oximetry 10/15/16 10/15/16 10/15/16 05:51 06:01 06:11 Temperature Pulse Rate 143 H 152 H 159 H Respiratory 18 19 18 Rate Blood Pressure 96/60 114/68 114/68 O2 Sat by Pulse 99 97 Oximetry 10/15/16 10/15/16 10/15/16 06:21 06:31 06:41 Temperature Pulse Rate 152 H 140 H 141 H Respiratory 19 19 20 Rate Blood Pressure 116/76 110/64 110/64 O2 Sat by Pulse Oximetry 10/15/16 10/15/16 10/15/16 06:51 07:00 07:11 Temperature Pulse Rate 158 H 151 H 113 H Respiratory 20 20 20 Rate Blood Pressure 106/70 117/73 117/73 O2 Sat by Pulse Oximetry 10/15/16 10/15/16 10/15/16 07:21 07:31 07:41 Temperature Pulse Rate 179 H 153 H 158 H Respiratory 20 20 20 Rate Blood Pressure 123/86 122/78 122/78 O2 Sat by Pulse 96 98 98 Oximetry 10/15/16 10/15/16 10/15/16 07:51 08:00 08:01 Temperature 97.1 F L Pulse Rate 171 H 155 H Respiratory 20 20 Rate Blood Pressure 118/85 125/79 O2 Sat by Pulse 99 98 Oximetry 10/15/16 10/15/16 10/15/16 08:11 08:21 08:30 Temperature Pulse Rate 163 H 144 H 142 H Respiratory 21 20 21 Rate Blood Pressure 125/79 134/88 108/75 O2 Sat by Pulse 98 98 97 Oximetry 10/15/16 10/15/16 10/15/16 08:41 08:49 08:51 Temperature Pulse Rate 146 H 153 H 149 H Respiratory 24 30 H 22 Rate Blood Pressure 108/75 108/75 109/72 O2 Sat by Pulse 100 100 100 Oximetry 10/15/16 09:00 Temperature Pulse Rate 127 H Respiratory 30 H Rate Blood Pressure 103/66 O2 Sat by Pulse 100 Oximetry Constitutional: lethargic Eyes: non-icteric ENT: oropharynx dry Neck: supple, no lymphadenopathy Effort: mildly labored Ascultation: Bilateral: clear, diminished breath sounds Cardiovascular: irregular rhythm Gastrointestinal: normoactive bowel sounds, soft, non-tender, non-distended Integumentary: normal Extremities: no cyanosis, pulses normal, no ischemia or petechiae, edema Neurologic: non-focal exam (grossly) Psychiatric: other (unable to assess) CBC and BMP: 10/15/16 05:35 10/15/16 05:35 ABG, PT/INR, D-dimer: ABG POC ABG pH 7.189 (7.35-7.45) L 10/15/16 06:22 POC ABG pCO2 28.9 (35-45) L 10/15/16 06:22 POC ABG pO2 81 (80-105) 10/15/16 06:22 POC ABG HCO3 11.0 10/15/16 06:22 POC ABG Total CO2 12 10/15/16 06:22 POC ABG O2 Sat 93 10/15/16 06:22 PT/INR, D-dimer PT 28.9 Sec. (12.2-14.9) H 10/14/16 21:25 INR 2.71 (0.87-1.13) H 10/14/16 21:25 Abnormal lab findings: Abnormal Labs 10/13/16 10/13/16 10/13/16 21:40 22:05 23:18 WBC RBC Hgb Hct MCV MCHC RDW Plt Count Seg Neuts % (Manual) Lymphocytes % (Manual) Nucleated RBC % Seg Neutrophils # Man Lymphocytes # (Manual) PT INR Fibrinogen POC ABG pH POC ABG pCO2 Sodium Potassium Chloride Carbon Dioxide BUN Creatinine Glucose POC Glucose 52 L 43 L 113 H Lactic Acid Uric Acid Calcium Phosphorus Iron TIBC Ferritin Total Bilirubin Direct Bilirubin Lactate Dehydrogenase C-Reactive Protein 10/14/16 10/14/16 10/14/16 03:00 03:00 03:00 WBC RBC Hgb Hct MCV MCHC RDW Plt Count Seg Neuts % (Manual) Lymphocytes % (Manual) Nucleated RBC % Seg Neutrophils # Man Lymphocytes # (Manual) PT INR Fibrinogen POC ABG pH POC ABG pCO2 Sodium Potassium Chloride Carbon Dioxide 18 L BUN 73 H Creatinine 9.8 H Glucose 59 L POC Glucose Lactic Acid Uric Acid 8.0 H Calcium 8.2 L Phosphorus 6.60 H Iron 13 L TIBC 160 L Ferritin Total Bilirubin Direct Bilirubin Lactate Dehydrogenase 406 H C-Reactive Protein 10/14/16 10/14/16 10/14/16 04:34 05:27 06:29 WBC 1.3 L* RBC 2.33 L Hgb 7.3 L Hct 21.7 L MCV MCHC RDW 19.8 H Plt Count 99 L Seg Neuts % (Manual) Lymphocytes % (Manual) 3.0 L Nucleated RBC % Seg Neutrophils # Man 0.9 L Lymphocytes # (Manual) 0.0 L PT INR Fibrinogen POC ABG pH POC ABG pCO2 Sodium Potassium Chloride Carbon Dioxide BUN Creatinine Glucose POC Glucose < 40 L 63 L Lactic Acid Uric Acid Calcium Phosphorus Iron TIBC Ferritin Total Bilirubin Direct Bilirubin Lactate Dehydrogenase C-Reactive Protein 10/14/16 10/14/16 10/14/16 07:34 09:58 09:58 WBC RBC Hgb Hct MCV MCHC RDW Plt Count Seg Neuts % (Manual) Lymphocytes % (Manual) Nucleated RBC % Seg Neutrophils # Man Lymphocytes # (Manual) PT INR Fibrinogen 557 H POC ABG pH POC ABG pCO2 Sodium Potassium Chloride Carbon Dioxide BUN Creatinine Glucose POC Glucose < 40 L Lactic Acid Uric Acid Calcium Phosphorus Iron TIBC Ferritin Total Bilirubin 1.30 H Direct Bilirubin 1.1 H Lactate Dehydrogenase C-Reactive Protein 10/14/16 10/14/16 10/14/16 10:57 11:15 12:52 WBC RBC Hgb Hct MCV MCHC RDW Plt Count Seg Neuts % (Manual) Lymphocytes % (Manual) Nucleated RBC % Seg Neutrophils # Man Lymphocytes # (Manual) PT INR Fibrinogen POC ABG pH POC ABG pCO2 Sodium Potassium Chloride Carbon Dioxide BUN Creatinine Glucose POC Glucose < 40 L < 40 L Lactic Acid 9.60 H* Uric Acid Calcium Phosphorus Iron TIBC Ferritin Total Bilirubin Direct Bilirubin Lactate Dehydrogenase C-Reactive Protein 10/14/16 10/14/16 10/14/16 12:52 13:17 14:12 WBC RBC Hgb Hct MCV MCHC RDW Plt Count Seg Neuts % (Manual) Lymphocytes % (Manual) Nucleated RBC % Seg Neutrophils # Man Lymphocytes # (Manual) PT INR Fibrinogen POC ABG pH POC ABG pCO2 Sodium Potassium Chloride Carbon Dioxide BUN Creatinine Glucose POC Glucose < 40 L < 40 L Lactic Acid Uric Acid Calcium Phosphorus Iron TIBC Ferritin Total Bilirubin Direct Bilirubin Lactate Dehydrogenase C-Reactive Protein 40.40 H 10/14/16 10/14/16 10/14/16 15:02 15:33 15:33 WBC RBC Hgb Hct MCV MCHC RDW Plt Count Seg Neuts % (Manual) Lymphocytes % (Manual) Nucleated RBC % Seg Neutrophils # Man Lymphocytes # (Manual) PT INR Fibrinogen POC ABG pH POC ABG pCO2 Sodium Potassium Chloride Carbon Dioxide BUN Creatinine Glucose 19 L* POC Glucose < 40 L Lactic Acid 11.60 H* Uric Acid Calcium Phosphorus Iron TIBC Ferritin Total Bilirubin Direct Bilirubin Lactate Dehydrogenase C-Reactive Protein 10/14/16 10/14/16 10/14/16 17:14 18:03 21:25 WBC RBC Hgb Hct MCV MCHC RDW Plt Count Seg Neuts % (Manual) Lymphocytes % (Manual) Nucleated RBC % Seg Neutrophils # Man Lymphocytes # (Manual) PT 28.9 H INR 2.71 H Fibrinogen POC ABG pH POC ABG pCO2 Sodium Potassium Chloride Carbon Dioxide BUN Creatinine Glucose POC Glucose < 40 L 57 L Lactic Acid Uric Acid Calcium Phosphorus Iron TIBC Ferritin Total Bilirubin Direct Bilirubin Lactate Dehydrogenase C-Reactive Protein 10/15/16 10/15/16 10/15/16 05:32 05:35 05:35 WBC RBC 2.62 L Hgb 8.1 L Hct 25.8 L MCV 98 H D MCHC 31 L RDW 21.2 H Plt Count 61 L Seg Neuts % (Manual) 27.0 L Lymphocytes % (Manual) 10.0 L Nucleated RBC % 2.0 H Seg Neutrophils # Man Lymphocytes # (Manual) 0.8 L PT INR Fibrinogen POC ABG pH POC ABG pCO2 Sodium Potassium Chloride Carbon Dioxide BUN Creatinine Glucose POC Glucose < 40 L Lactic Acid Uric Acid Calcium Phosphorus Iron TIBC Ferritin Total Bilirubin Direct Bilirubin Lactate Dehydrogenase 3871 H C-Reactive Protein 10/15/16 10/15/16 10/15/16 05:35 05:35 05:35 WBC RBC Hgb Hct MCV MCHC RDW Plt Count Seg Neuts % (Manual) Lymphocytes % (Manual) Nucleated RBC % Seg Neutrophils # Man Lymphocytes # (Manual) PT INR Fibrinogen POC ABG pH POC ABG pCO2 Sodium 136 L Potassium 5.3 H D Chloride 91.4 L Carbon Dioxide 6 L* D BUN 57 H Creatinine 7.1 H Glucose 11 L* POC Glucose Lactic Acid 13.60 H* Uric Acid Calcium 7.7 L Phosphorus 10.10 H D Iron TIBC 166 L Ferritin 9562.0 H Total Bilirubin Direct Bilirubin Lactate Dehydrogenase C-Reactive Protein 10/15/16 10/15/16 10/15/16 05:51 06:22 06:52 WBC RBC Hgb Hct MCV MCHC RDW Plt Count Seg Neuts % (Manual) Lymphocytes % (Manual) Nucleated RBC % Seg Neutrophils # Man Lymphocytes # (Manual) PT INR Fibrinogen POC ABG pH 7.189 L POC ABG pCO2 28.9 L Sodium Potassium Chloride Carbon Dioxide BUN Creatinine Glucose POC Glucose 59 L 111 H Lactic Acid Uric Acid Calcium Phosphorus Iron TIBC Ferritin Total Bilirubin Direct Bilirubin Lactate Dehydrogenase C-Reactive Protein 10/15/16 08:00 WBC RBC Hgb Hct MCV MCHC RDW Plt Count Seg Neuts % (Manual) Lymphocytes % (Manual) Nucleated RBC % Seg Neutrophils # Man Lymphocytes # (Manual) PT INR Fibrinogen POC ABG pH POC ABG pCO2 Sodium Potassium Chloride Carbon Dioxide BUN Creatinine Glucose POC Glucose 63 L Lactic Acid Uric Acid Calcium Phosphorus Iron TIBC Ferritin Total Bilirubin Direct Bilirubin Lactate Dehydrogenase C-Reactive Protein Chest x-ray: image reviewed
--- NOTE | 2016-10-15 09:50 | Progress Note ---
Assessment and Plan 61 male: 1. Severe cardiomyopathy (unclear etiology) 2. Atrial fibrillation with variable ventricular response 3. Acute metabolic encephalopathy 4. Acute kidney injury 5. Profound metabolic acidemia/lactic acidosis 6. Acute respiratory failure 7. Pancytopenia Discussed with care team at length. Started iv amio for rate control (lfts wnl) Given anemia and thrombocytopenia, would defer systemic anticoagulation for now. Watch volume status closely Poor prognosis. - Patient Problems (1) Anemia Current Visit: Yes Status: Acute Qualifiers: Anemia type: unspecified type Iron deficiency anemia type: I Vitamin B12 deficiency anemia type: V Folate deficiency anemia type: F Bone marrow failure anemia type: B Hemolytic anemia type: H Other causes of anemia: O Qualified Code(s): D64.9 - Anemia, unspecified (2) Edema Current Visit: Yes Status: Acute Qualifiers: Edema type: unspecified Malnutrition edema type: M Trimester: T Qualified Code(s): R60.9 - Edema, unspecified (3) Hyperkalemia Current Visit: Yes Status: Acute (4) Leucopenia Current Visit: Yes Status: Acute Qualifiers: Leukopenia type: unspecified Neutropenia type: N Qualified Code(s): D72.819 - Decreased white blood cell count, unspecified (5) Renal failure Current Visit: Yes Status: Acute Qualifiers: Renal failure chronicity: acute Acute renal failure type: unspecified Chronic kidney disease stage: C Qualified Code(s): N17.9 - Acute kidney failure, unspecified Subjective Date of service: 10/15/16 Principal diagnosis: Sepsis Syndrome; MAHA; RAJESH; CHF Interval history: Seen with RN at bedside On bipap Objective Vital Signs Temp Pulse Resp BP Pulse Ox 10/15/16 09:00 127 H 30 H 103/66 100 10/15/16 08:51 149 H 22 109/72 100 10/15/16 08:49 153 H 30 H 108/75 100 10/15/16 08:41 146 H 24 108/75 100 10/15/16 08:30 142 H 21 108/75 97 10/15/16 08:21 144 H 20 134/88 98 10/15/16 08:11 163 H 21 125/79 98 10/15/16 08:01 155 H 20 125/79 98 10/15/16 08:00 97.1 F L 10/15/16 07:51 171 H 20 118/85 99 05 07:41 158 H 20 122/78 98 0520 07:31 153 H 20 122/78 98 05 07:21 179 H 20 123/86 96 10/15/16 07:11 113 H 20 117/73 05 07:00 151 H 20 117/73 052017 06:51 158 H 20 106/70 0520 06:41 141 H 20 110/64 0520 06:31 140 H 19 110/64 0520/17 06:21 152 H 19 116/76 0520 06:11 159 H 18 114/68 97 05 06:01 152 H 19 114/68 99 10/15/16 05:51 143 H 18 96/60 0517 05:41 138 H 18 101/61 0520 05:31 157 H 19 102/64 052017 05:20 150 H 21 88/58 052017 05:10 124 H 20 88/61 0520/17 05:01 99 H 19 88/61 052017 04:51 109 H 20 94/56 0520/17 04:41 84 20 114/57 0520/17 04:30 97 H 20 114/57 0520/17 04:21 97 H 19 94/58 0520/17 04:11 91 H 20 107/65 05/20/17 04:00 98.1 F 93 H 28 H 107/65 0520/17 03:51 105 H 19 110/54 0520/17 03:41 109 H 19 110/59 05/20/17 03:30 113 H 19 110/59 05/20/17 03:21 112 H 20 100/61 05/20/17 03:11 107 H 18 107/55 05/20/17 03:01 120 H 18 107/55 05/20/17 03:00 113 H 0520/17 02:51 99 H 19 117/71 0520/17 02:41 114 H 20 116/74 05/20/17 02:30 120 H 20 116/74 05/20/17 02:21 99 H 19 108/73 05/20/17 02:11 111 H 20 106/71 05/20/17 02:00 97 H 18 106/71 10/15/16 01:51 105 H 22 123/71 10/15/16 01:41 104 H 19 113/69 10/15/16 01:30 105 H 20 113/69 10/15/16 01:21 101 H 20 116/75 10/15/16 01:11 101 H 22 102/73 10/15/16 01:00 100 H 19 102/73 10/15/16 00:51 99 H 19 106/74 10/15/16 00:41 99 H 20 100/72 10/15/16 00:30 100 H 20 100/72 10/15/16 00:21 99 H 19 102/69 10/15/16 00:11 98 H 18 97/69 10/15/16 00:00 98.5 F 98 H 26 H 97/69 10/14/16 23:51 98 H 18 93/61 10/14/16 23:41 99 H 19 111/75 10/14/16 23:30 102 H 20 111/75 10/14/16 21:21 32 H 96/69 10/14/16 21:11 102 H 32 H 99/77 10/14/16 21:00 104 H 33 H 116/76 10/14/16 20:51 103 H 36 H 99/77 10/14/16 20:41 103 H 33 H 114/85 10/14/16 20:30 104 H 39 H 113/82 10/14/16 20:21 103 H 29 H 114/85 10/14/16 20:11 107 H 32 H 122/84 10/14/16 20:01 104 H 34 H 122/84 10/14/16 20:00 27 H 10/14/16 19:51 104 H 35 H 105/76 10/14/16 19:41 103 H 30 H 109/65 10/14/16 19:30 103 H 31 H 109/65 10/14/16 19:21 103 H 35 H 104/74 10/14/16 19:11 104 H 38 H 108/82 10/14/16 19:00 119 H 38 H 108/82 10/14/16 18:51 103 H 32 H 118/85 10/14/16 18:41 105 H 39 H 105/69 10/14/16 18:30 103 H 29 H 105/69 10/14/16 18:21 105 H 42 H 100/71 10/14/16 18:11 104 H 33 H 104/76 10/14/16 18:00 105 H 38 H 104/76 10/14/16 17:51 104 H 39 H 99/70 10/14/16 17:41 104 H 40 H 100/73 10/14/16 17:30 104 H 30 H 100/73 10/14/16 17:21 107 H 32 H 97/77 10/14/16 17:11 107 H 36 H 104/81 10/14/16 17:00 106 H 35 H 104/81 10/14/16 16:51 107 H 32 H 111/80 10/14/16 16:41 107 H 41 H 110/86 10/14/16 16:30 108 H 37 H 110/86 10/14/16 16:21 109 H 38 H 118/92 10/14/16 16:11 109 H 40 H 124/93 10/14/16 16:00 110 H 29 H 124/93 10/14/16 15:51 110 H 26 H 134/92 10/14/16 15:41 111 H 42 H 134/87 10/14/16 15:31 111 H 37 H 134/87 10/14/16 15:21 111 H 39 H 137/92 10/14/16 15:11 113 H 40 H 128/91 10/14/16 15:00 113 H 43 H 128/91 10/14/16 14:51 112 H 38 H 120/90 10/14/16 14:41 112 H 29 H 118/94 10/14/16 14:30 111 H 36 H 118/94 10/14/16 14:21 114 H 37 H 121/97 10/14/16 14:11 112 H 36 H 111/87 10/14/16 14:00 111 H 33 H 111/87 10/14/16 13:51 110 H 37 H 102/82 10/14/16 13:41 111 H 32 H 120/84 10/14/16 13:30 113 H 37 H 120/84 10/14/16 13:21 114 H 36 H 123/95 10/14/16 13:11 113 H 36 H 123/97 10/14/16 13:00 114 H 45 H 134/94 10/14/16 12:51 114 H 40 H 134/94 10/14/16 12:41 115 H 38 H 176/123 10/14/16 12:37 97.7 F 118 H 29 H 176/123 10/14/16 12:31 119 H 40 H 176/123 10/14/16 12:30 120 H 130/103 10/14/16 12:21 119 H 40 H 130/103 10/14/16 12:17 120 H 124/98 10/14/16 12:11 120 H 32 H 124/98 10/14/16 12:01 118 H 31 H 119/93 10/14/16 12:00 120 H 31 H 119/93 96 10/14/16 11:51 120 H 46 H 130/100 95 10/14/16 11:45 119 H 120/86 10/14/16 11:41 119 H 36 H 121/90 10/14/16 11:35 120 H 105/77 10/14/16 11:31 119 H 40 H 121/90 10/14/16 11:21 118 H 32 H 105/77 10/14/16 11:13 117 H 108/72 10/14/16 11:11 117 H 33 H 108/72 10/14/16 11:01 115 H 28 H 108/72 10/14/16 11:00 114 H 92/70 10/14/16 10:50 115 H 32 H 91/68 10/14/16 10:45 115 H 91/68 10/14/16 10:41 113 H 23 106/78 10/14/16 10:30 115 H 32 H 106/78 10/14/16 10:21 113 H 27 H 112/89 95 10/14/16 10:20 114 H 106/78 10/14/16 10:11 115 H 28 H 124/92 96 10/14/16 10:00 97.9 F 119 H 41 H 112/89 96 10/14/16 09:51 117 H 29 H 157/91 95 - Physical Examination Neck: Positive: neck supple, trachea midline - Labs and Meds Cardiac Enzymes 10/15/16 Range/Units 05:35 Lactate Dehydrogenase 3871 H (91-180) units/L Coagulation 10/14/16 Range/Units 21:25 PT 28.9 H (12.2-14.9) Sec. INR 2.71 H (0.87-1.13) CBC 10/15/16 Range/Units 05:35 WBC 7.6 (4.5-11.0) K/mm3 RBC 2.62 L (3.65-5.03) M/mm3 Hgb 8.1 L (11.8-15.2) gm/dl Hct 25.8 L (35.5-45.6) % Plt Count 61 L (140-440) K/mm3 Comprehensive Metabolic Panel 10/14/16 10/14/16 10/15/16 Range/Units 09:58 15:33 05:35 Sodium 136 L (137-145) mmol/L Potassium 5.3 H D (3.6-5.0) mmol/L Chloride 91.4 L (98-107) mmol/L Carbon Dioxide 6 L* D (22-30) mmol/L BUN 57 H (9-20) mg/dL Creatinine 7.1 H (0.8-1.5) mg/dL Glucose 19 L* 11 L* (75-100) mg/dL Calcium 7.7 L (8.4-10.2) mg/dL Direct Bilirubin 1.1 H (0-0.2) mg/dL Indirect Bilirubin 0.2 mg/dL
[2016-10-15] MEDS ORDERED: NACL 0.9% 500 ML 500 ML IV ONE (09:57)
[2016-10-15] MEDS ORDERED: NACL 0.9% 500 ML 500 ML IV NR ×2 (10:00→13:04)
[2016-10-15] MEDS ORDERED: CALCIUM GLUCONATE 1,000 MG in NACL 0.9% 100 ML IV ONE (10:07)
--- NOTE | 2016-10-15 10:19 | Consultation ---
History of Present Illness - Reason for Consult Consult date: 10/15/16 - History of Present Illness Patient seen,rapidly declining, spoke with DR Cunningham, and the director manufacturing engineering, all agreed on trying Plasma exchange. I have spoken to the [facility], and the floor, and to the blood blank.Will try this dailyx 5days, I had already ordered w/up for [facility], and aHUS yesterday. Past History Past Medical History: No medical history, other (Had shingles in November 25-) Past Surgical History: No surgical history Social history: , full code, other (Patienti s and lives with his ). denies: smoking, alcohol abuse, prescription drug abuse, IV drug use Family history: no significant family history Medications and Allergies Allergies Allergy/AdvReac Type Severity Reaction Status Date / Time No Known Allergies Allergy Unverified 10/13/16 09:41 Home Medications Medication Instructions Recorded Confirmed Last Taken Type Naproxen Sodium [Aleve TAB] 2 tab PO Q8H PRN 10/13/16 10/13/16 10/12/16 14:00 History Active Meds: Active Medications Acetaminophen (Tylenol) 650 mg PO Q6H PRN PRN Reason: pain Last Admin: 10/14/16 21:13 Dose: 650 mg Acetaminophen (Tylenol) 1,000 mg MI Q4H PRN PRN Reason: Pain, Mild (1-3) Dextrose (D50w (25gm)) 25 ml IV PRN PRN PRN Reason: Hypoglycemia Last Admin: 10/15/16 06:18 Dose: 25 ml Diphenhydramine HCl (Benadryl) 50 mg IV Q6H PRN PRN Reason: Itching Famotidine (Pepcid) 20 mg PO QDAY EDWINA Last Admin: 10/14/16 13:11 Dose: 20 mg Haloperidol Lactate (Haldol) 5 mg IM Q6H PRN PRN Reason: Agitation Last Admin: 10/14/16 21:11 Dose: 5 mg Heparin Sodium (Porcine) (Heparin) 5,000 unit IV ROD PRN PRN Reason: hemodialysis Last Admin: 10/14/16 13:39 Dose: 5,000 unit Heparin Sodium (Porcine) (Heparin) 10,000 unit IV ROD PRN PRN Reason: for plasmapheresis- vascath Sodium Chloride (Nacl 0.9%) 100 mls @ 999 mls/hr IV ROD PRN PRN Reason: Hypotension Sodium Chloride (Nacl 0.9%) 100 mls @ 999 mls/hr IV ROD PRN PRN Reason: Hypotension Sodium Chloride (Nacl 0.9%) 100 mls @ 999 mls/hr IV ROD PRN PRN Reason: Hypotension Piperacillin Sod/Tazobactam Sod (Zosyn/Ns 2.25 Gm/50ml) 2.25 gm in 50 mls @ 100 mls/hr IV Q8HR [facility] Last Admin: 10/15/16 05:39 Dose: 100 mls/hr Sodium Bicarbonate 150 meq/ (Dextrose) 1,150 mls @ 150 mls/hr IV DIRECT ONE Stop: 10/15/16 15:39 Last Admin: 10/15/16 09:13 Dose: 150 mls/hr Amiodarone HCl 900 mg/ (Dextrose) 500 mls @ 33.33 mls/hr IV DIRECT EDWINA; 1 MG /MIN PRN Reason: Protocol Last Admin: 10/15/16 09:14 Dose: 1 mg/min, 33.33 mls/hr Sodium Chloride (Nacl 0.9% 500 Ml) 500 mls @ 0 mls/hr IV ONCE NR PRN Reason: As Directed Stop: 10/15/16 14:00 Calcium Gluconate 1,000 mg/ (Sodium Chloride) 110 mls @ 660 mls/hr IV ONCE ONE Stop: 10/15/16 10:16 Sodium Chloride (Nacl 0.9% 500 Ml) 500 mls @ 0 mls/hr IV ONCE ONE PRN Reason: As Directed Stop: 10/15/16 09:58 Ondansetron HCl (Zofran) 4 mg IV Q8H PRN PRN Reason: Nausea And Vomiting Sodium Bicarbonate (Sodium Bicarbonate) 650 mg PO BID EDWINA Last Admin: 10/14/16 21:10 Dose: 650 mg Vancomycin HCl (Vancomycin Pharmacy To Dose) 1 each IV PKCONSULT EDWINA PRN Reason: Protocol Review of Systems Constitutional: weakness, lethargy Respiratory: other (intubated) Neurological: confusion Exam - Constitutional Vitals: Temp Pulse Resp BP Pulse Ox 97.1 F L 127 H 30 H 103/66 100 10/15/16 08:00 10/15/16 09:00 10/15/16 09:00 10/15/16 09:00 10/15/16 09:00 General appearance: Present: severe distress - Neck Neck: Present: supple, normal ROM - Respiratory Respiratory: bilateral: other (intubated) - Cardiovascular Heart Sounds: Present: S1 & S2. Absent: rub, click - Extremities Extremities: pulses symmetrical, No edema Peripheral Pulses: within normal limits - Abdominal General gastrointestinal: Present: soft, non-tender, non-distended, normal bowel sounds Male genitourinary: Present: deferred - Rectal Rectal Exam: deferred - Integumentary Integumentary: Present: clear, warm, dry Results - Labs CBC & Chem 7: 10/15/16 05:35 10/15/16 05:35 Labs: Abnormal lab results 10/14/16 10/14/16 10/14/16 Range/Units 09:58 09:58 10:57 RBC (3.65-5.03) M/mm3 Hgb (11.8-15.2) gm/dl Hct (35.5-45.6) % MCV (84-94) fl MCHC (32-34) % RDW (13.2-15.2) % Plt Count (140-440) K/mm3 Seg Neuts % (Manual) (40.0-70.0) % Lymphocytes % (Manual) (13.4-35.0) % Nucleated RBC % (0.0-0.9) % Lymphocytes # (Manual) (1.2-5.4) K/mm3 PT (12.2-14.9) Sec. INR (0.87-1.13) Fibrinogen 557 H (211-480) mg/dl POC ABG pH (7.35-7.45) POC ABG pCO2 (35-45) Sodium (137-145) mmol/L Potassium (3.6-5.0) mmol/L Chloride (98-107) mmol/L Carbon Dioxide (22-30) mmol/L BUN (9-20) mg/dL Creatinine (0.8-1.5) mg/dL Glucose (75-100) mg/dL POC Glucose < 40 L (70-105) Lactic Acid (0.7-2.0) mmol/L Calcium (8.4-10.2) mg/dL Phosphorus (2.5-4.5) mg/dL TIBC (250-450) mcg/dL Ferritin (13.0-400.0) ng/mL Total Bilirubin 1.30 H (0.1-1.2) mg/dL Direct Bilirubin 1.1 H (0-0.2) mg/dL Lactate Dehydrogenase (91-180) units/L C-Reactive Protein (0.00-1.30) mg/dL 10/14/16 10/14/16 10/14/16 Range/Units 11:15 12:52 12:52 RBC (3.65-5.03) M/mm3 Hgb (11.8-15.2) gm/dl Hct (35.5-45.6) % MCV (84-94) fl MCHC (32-34) % RDW (13.2-15.2) % Plt Count (140-440) K/mm3 Seg Neuts % (Manual) (40.0-70.0) % Lymphocytes % (Manual) (13.4-35.0) % Nucleated RBC % (0.0-0.9) % Lymphocytes # (Manual) (1.2-5.4) K/mm3 PT (12.2-14.9) Sec. INR (0.87-1.13) Fibrinogen (211-480) mg/dl POC ABG pH (7.35-7.45) POC ABG pCO2 (35-45) Sodium (137-145) mmol/L Potassium (3.6-5.0) mmol/L Chloride (98-107) mmol/L Carbon Dioxide (22-30) mmol/L BUN (9-20) mg/dL Creatinine (0.8-1.5) mg/dL Glucose (75-100) mg/dL POC Glucose < 40 L (70-105) Lactic Acid 9.60 H* (0.7-2.0) mmol/L Calcium (8.4-10.2) mg/dL Phosphorus (2.5-4.5) mg/dL TIBC (250-450) mcg/dL Ferritin (13.0-400.0) ng/mL Total Bilirubin (0.1-1.2) mg/dL Direct Bilirubin (0-0.2) mg/dL Lactate Dehydrogenase (91-180) units/L C-Reactive Protein 40.40 H (0.00-1.30) mg/dL 10/14/16 10/14/16 10/14/16 Range/Units 13:17 14:12 15:02 RBC (3.65-5.03) M/mm3 Hgb (11.8-15.2) gm/dl Hct (35.5-45.6) % MCV (84-94) fl MCHC (32-34) % RDW (13.2-15.2) % Plt Count (140-440) K/mm3 Seg Neuts % (Manual) (40.0-70.0) % Lymphocytes % (Manual) (13.4-35.0) % Nucleated RBC % (0.0-0.9) % Lymphocytes # (Manual) (1.2-5.4) K/mm3 PT (12.2-14.9) Sec. INR (0.87-1.13) Fibrinogen (211-480) mg/dl POC ABG pH (7.35-7.45) POC ABG pCO2 (35-45) Sodium (137-145) mmol/L Potassium (3.6-5.0) mmol/L Chloride (98-107) mmol/L Carbon Dioxide (22-30) mmol/L BUN (9-20) mg/dL Creatinine (0.8-1.5) mg/dL Glucose (75-100) mg/dL POC Glucose < 40 L < 40 L < 40 L (70-105) Lactic Acid (0.7-2.0) mmol/L Calcium (8.4-10.2) mg/dL Phosphorus (2.5-4.5) mg/dL TIBC (250-450) mcg/dL Ferritin (13.0-400.0) ng/mL Total Bilirubin (0.1-1.2) mg/dL Direct Bilirubin (0-0.2) mg/dL Lactate Dehydrogenase (91-180) units/L C-Reactive Protein (0.00-1.30) mg/dL 10/14/16 10/14/16 10/14/16 Range/Units 15:33 15:33 17:14 RBC (3.65-5.03) M/mm3 Hgb (11.8-15.2) gm/dl Hct (35.5-45.6) % MCV (84-94) fl MCHC (32-34) % RDW (13.2-15.2) % Plt Count (140-440) K/mm3 Seg Neuts % (Manual) (40.0-70.0) % Lymphocytes % (Manual) (13.4-35.0) % Nucleated RBC % (0.0-0.9) % Lymphocytes # (Manual) (1.2-5.4) K/mm3 PT (12.2-14.9) Sec. INR (0.87-1.13) Fibrinogen (211-480) mg/dl POC ABG pH (7.35-7.45) POC ABG pCO2 (35-45) Sodium (137-145) mmol/L Potassium (3.6-5.0) mmol/L Chloride (98-107) mmol/L Carbon Dioxide (22-30) mmol/L BUN (9-20) mg/dL Creatinine (0.8-1.5) mg/dL Glucose 19 L* (75-100) mg/dL POC Glucose < 40 L (70-105) Lactic Acid 11.60 H* (0.7-2.0) mmol/L Calcium (8.4-10.2) mg/dL Phosphorus (2.5-4.5) mg/dL TIBC (250-450) mcg/dL Ferritin (13.0-400.0) ng/mL Total Bilirubin (0.1-1.2) mg/dL Direct Bilirubin (0-0.2) mg/dL Lactate Dehydrogenase (91-180) units/L C-Reactive Protein (0.00-1.30) mg/dL 10/14/16 10/14/16 10/15/16 Range/Units 18:03 21:25 05:32 RBC (3.65-5.03) M/mm3 Hgb (11.8-15.2) gm/dl Hct (35.5-45.6) % MCV (84-94) fl MCHC (32-34) % RDW (13.2-15.2) % Plt Count (140-440) K/mm3 Seg Neuts % (Manual) (40.0-70.0) % Lymphocytes % (Manual) (13.4-35.0) % Nucleated RBC % (0.0-0.9) % Lymphocytes # (Manual) (1.2-5.4) K/mm3 PT 28.9 H (12.2-14.9) Sec. INR 2.71 H (0.87-1.13) Fibrinogen (211-480) mg/dl POC ABG pH (7.35-7.45) POC ABG pCO2 (35-45) Sodium (137-145) mmol/L Potassium (3.6-5.0) mmol/L Chloride (98-107) mmol/L Carbon Dioxide (22-30) mmol/L BUN (9-20) mg/dL Creatinine (0.8-1.5) mg/dL Glucose (75-100) mg/dL POC Glucose 57 L < 40 L (70-105) Lactic Acid (0.7-2.0) mmol/L Calcium (8.4-10.2) mg/dL Phosphorus (2.5-4.5) mg/dL TIBC (250-450) mcg/dL Ferritin (13.0-400.0) ng/mL Total Bilirubin (0.1-1.2) mg/dL Direct Bilirubin (0-0.2) mg/dL Lactate Dehydrogenase (91-180) units/L C-Reactive Protein (0.00-1.30) mg/dL 10/15/16 10/15/16 10/15/16 Range/Units 05:35 05:35 05:35 RBC 2.62 L (3.65-5.03) M/mm3 Hgb 8.1 L (11.8-15.2) gm/dl Hct 25.8 L (35.5-45.6) % MCV 98 H D (84-94) fl MCHC 31 L (32-34) % RDW 21.2 H (13.2-15.2) % Plt Count 61 L (140-440) K/mm3 Seg Neuts % (Manual) 27.0 L (40.0-70.0) % Lymphocytes % (Manual) 10.0 L (13.4-35.0) % Nucleated RBC % 2.0 H (0.0-0.9) % Lymphocytes # (Manual) 0.8 L (1.2-5.4) K/mm3 PT (12.2-14.9) Sec. INR (0.87-1.13) Fibrinogen (211-480) mg/dl POC ABG pH (7.35-7.45) POC ABG pCO2 (35-45) Sodium 136 L (137-145) mmol/L Potassium 5.3 H D (3.6-5.0) mmol/L Chloride 91.4 L (98-107) mmol/L Carbon Dioxide 6 L* D (22-30) mmol/L BUN 57 H (9-20) mg/dL Creatinine 7.1 H (0.8-1.5) mg/dL Glucose 11 L* (75-100) mg/dL POC Glucose (70-105) Lactic Acid (0.7-2.0) mmol/L Calcium 7.7 L (8.4-10.2) mg/dL Phosphorus 10.10 H D (2.5-4.5) mg/dL TIBC 166 L (250-450) mcg/dL Ferritin (13.0-400.0) ng/mL Total Bilirubin (0.1-1.2) mg/dL Direct Bilirubin (0-0.2) mg/dL Lactate Dehydrogenase 3871 H (91-180) units/L C-Reactive Protein (0.00-1.30) mg/dL 10/15/16 10/15/16 10/15/16 Range/Units 05:35 05:35 05:51 RBC (3.65-5.03) M/mm3 Hgb (11.8-15.2) gm/dl Hct (35.5-45.6) % MCV (84-94) fl MCHC (32-34) % RDW (13.2-15.2) % Plt Count (140-440) K/mm3 Seg Neuts % (Manual) (40.0-70.0) % Lymphocytes % (Manual) (13.4-35.0) % Nucleated RBC % (0.0-0.9) % Lymphocytes # (Manual) (1.2-5.4) K/mm3 PT (12.2-14.9) Sec. INR (0.87-1.13) Fibrinogen (211-480) mg/dl POC ABG pH (7.35-7.45) POC ABG pCO2 (35-45) Sodium (137-145) mmol/L Potassium (3.6-5.0) mmol/L Chloride (98-107) mmol/L Carbon Dioxide (22-30) mmol/L BUN (9-20) mg/dL Creatinine (0.8-1.5) mg/dL Glucose (75-100) mg/dL POC Glucose 59 L (70-105) Lactic Acid 13.60 H* (0.7-2.0) mmol/L Calcium (8.4-10.2) mg/dL Phosphorus (2.5-4.5) mg/dL TIBC (250-450) mcg/dL Ferritin 9562.0 H (13.0-400.0) ng/mL Total Bilirubin (0.1-1.2) mg/dL Direct Bilirubin (0-0.2) mg/dL Lactate Dehydrogenase (91-180) units/L C-Reactive Protein (0.00-1.30) mg/dL 10/15/16 10/15/16 10/15/16 Range/Units 06:22 06:52 08:00 RBC (3.65-5.03) M/mm3 Hgb (11.8-15.2) gm/dl Hct (35.5-45.6) % MCV (84-94) fl MCHC (32-34) % RDW (13.2-15.2) % Plt Count (140-440) K/mm3 Seg Neuts % (Manual) (40.0-70.0) % Lymphocytes % (Manual) (13.4-35.0) % Nucleated RBC % (0.0-0.9) % Lymphocytes # (Manual) (1.2-5.4) K/mm3 PT (12.2-14.9) Sec. INR (0.87-1.13) Fibrinogen (211-480) mg/dl POC ABG pH 7.189 L (7.35-7.45) POC ABG pCO2 28.9 L (35-45) Sodium (137-145) mmol/L Potassium (3.6-5.0) mmol/L Chloride (98-107) mmol/L Carbon Dioxide (22-30) mmol/L BUN (9-20) mg/dL Creatinine (0.8-1.5) mg/dL Glucose (75-100) mg/dL POC Glucose 111 H 63 L (70-105) Lactic Acid (0.7-2.0) mmol/L Calcium (8.4-10.2) mg/dL Phosphorus (2.5-4.5) mg/dL TIBC (250-450) mcg/dL Ferritin (13.0-400.0) ng/mL Total Bilirubin (0.1-1.2) mg/dL Direct Bilirubin (0-0.2) mg/dL Lactate Dehydrogenase (91-180) units/L C-Reactive Protein (0.00-1.30) mg/dL Assessment and Plan - Patient Problems (1) Anemia Current Visit: Yes Status: Acute Qualifiers: Anemia type: unspecified type Iron deficiency anemia type: I Vitamin B12 deficiency anemia type: V Folate deficiency anemia type: F Bone marrow failure anemia type: B Hemolytic anemia type: H Other causes of anemia: O Qualified Code(s): D64.9 - Anemia, unspecified Plan to address problem: For now, he is getting replacement transfusion. see further w/up. see notes (2) Leucopenia Current Visit: Yes Status: Acute Qualifiers: Leukopenia type: unspecified Neutropenia type: N Qualified Code(s): D72.819 - Decreased white blood cell count, unspecified Plan to address problem: will give stimulant if indicated. See notes. (3) Renal failure Current Visit: Yes Status: Acute Qualifiers: Renal failure chronicity: acute Acute renal failure type: unspecified Chronic kidney disease stage: C Qualified Code(s): N17.9 - Acute kidney failure, unspecified Plan to address problem: See w/up, and renal service. see notes
--- NOTE | 2016-10-15 10:41 | Progress Note ---
Assessment and Plan - Patient Problems (1) Renal failure Current Visit: Yes Status: Acute Qualifiers: Renal failure chronicity: acute Acute renal failure type: unspecified Chronic kidney disease stage: C Qualified Code(s): N17.9 - Acute kidney failure, unspecified Plan to address problem: Renal function reviewed. Serum creatinine 7.1 today from 9.8 yesterday Patient was initiated on hemodialysis on 10/13/16 Patient received hemodialysis treatment yesterday on 10/14/16 Will hold hemodialysis treatment today but will likely need to be dialyzed tomorrow. Will repeat Schistocytes level today Haptoglobin levels are pending GN work up is in progress- SPEP, UPEP, Anti-GBM, ANCA, XU, HIV, C3 and C4 levels are all pending HIV, Hepatitis C antibody and Hep B surface antigen levels are- nonreactive Possible TTP and HUS. Possible Amyloidosis. Hematology will start Plasmapharesis today Strict I/O monitoring Avoid Nephrotoxic agents Renally dose medications Obtain daily weights (2) Pancytopenia Current Visit: Yes Status: Acute Plan to address problem: 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 Possible Amyloidosis. To begin Plasmapharesis today as per Hematology Hematology plans to arrange the Plasmapharesis (3) Acute respiratory failure Current Visit: Yes Status: Acute Qualifiers: Respiratory failure complication: hypoxia Qualified Code(s): J96.01 - Acute respiratory failure with hypoxia Plan to address problem: On Bipap as per Pulmonary (4) Metabolic acidosis Current Visit: Yes Status: Acute Plan to address problem: On Sodium Bicarbonate 150 meq in D5W@150 ml/hr (5) Anemia Current Visit: Yes Status: Acute Qualifiers: Anemia type: unspecified type Iron deficiency anemia type: I Vitamin B12 deficiency anemia type: V Folate deficiency anemia type: F Bone marrow failure anemia type: B Hemolytic anemia type: H Other causes of anemia: O Qualified Code(s): D64.9 - Anemia, unspecified Plan to address problem: S/P receive 2 unit PRBC transfusions on 10/13/16 Monitor H/H and transfuse as needed May need Epogen with HD Hematology on board (6) Atrial fibrillation Current Visit: Yes Status: Acute Qualifiers: Atrial fibrillation type: A Plan to address problem: On IV Amiodarone drip as per Cardiology Echo-LVEF 30-35% Subjective Date of service: 10/15/16 Principal diagnosis: Sepsis Syndrome; MAHA; RAJESH; CHF Interval history: Patient seen lying in bed. On Bipap. at bedside. Obtunded. Does not follow commands Objective - Vital Signs Vital signs: Vital Signs - 12hr 10/14/16 10/14/16 10/14/16 23:30 23:41 23:51 Temperature Pulse Rate 102 H 99 H 98 H Respiratory 20 19 18 Rate Blood Pressure 111/75 111/75 93/61 O2 Sat by Pulse Oximetry 10/15/16 10/15/16 10/15/16 00:00 00:11 00:21 Temperature 98.5 F Pulse Rate 98 H 98 H 99 H Respiratory 26 H 18 19 Rate Blood Pressure 97/69 97/69 102/69 O2 Sat by Pulse Oximetry 10/15/16 10/15/16 10/15/16 00:30 00:41 00:51 Temperature Pulse Rate 100 H 99 H 99 H Respiratory 20 20 19 Rate Blood Pressure 100/72 100/72 106/74 O2 Sat by Pulse Oximetry 10/15/16 10/15/16 10/15/16 01:00 01:11 01:21 Temperature Pulse Rate 100 H 101 H 101 H Respiratory 19 22 20 Rate Blood Pressure 102/73 102/73 116/75 O2 Sat by Pulse Oximetry 10/15/16 10/15/16 10/15/16 01:30 01:41 01:51 Temperature Pulse Rate 105 H 104 H 105 H Respiratory 20 19 22 Rate Blood Pressure 113/69 113/69 123/71 O2 Sat by Pulse Oximetry 10/15/16 10/15/16 10/15/16 02:00 02:11 02:21 Temperature Pulse Rate 97 H 111 H 99 H Respiratory 18 20 19 Rate Blood Pressure 106/71 106/71 108/73 O2 Sat by Pulse Oximetry 10/15/16 10/15/16 10/15/16 02:30 02:41 02:51 Temperature Pulse Rate 120 H 114 H 99 H Respiratory 20 20 19 Rate Blood Pressure 116/74 116/74 117/71 O2 Sat by Pulse Oximetry 10/15/16 10/15/16 10/15/16 03:00 03:01 03:11 Temperature Pulse Rate 113 H 120 H 107 H Respiratory 18 18 Rate Blood Pressure 107/55 107/55 O2 Sat by Pulse Oximetry 05/20/17 05/20/17 05/20/17 03:21 03:30 03:41 Temperature Pulse Rate 112 H 113 H 109 H Respiratory 20 19 19 Rate Blood Pressure 100/61 110/59 110/59 O2 Sat by Pulse Oximetry 10/15/16 10/15/16 10/15/16 03:51 04:00 04:11 Temperature 98.1 F Pulse Rate 105 H 93 H 91 H Respiratory 19 28 H 20 Rate Blood Pressure 110/54 107/65 107/65 O2 Sat by Pulse Oximetry 10/15/16 10/15/16 10/15/16 04:21 04:30 04:41 Temperature Pulse Rate 97 H 97 H 84 Respiratory 19 20 20 Rate Blood Pressure 94/58 114/57 114/57 O2 Sat by Pulse Oximetry 10/15/16 10/15/16 10/15/16 04:51 05:01 05:10 Temperature Pulse Rate 109 H 99 H 124 H Respiratory 20 19 20 Rate Blood Pressure 94/56 88/61 88/61 O2 Sat by Pulse Oximetry 10/15/16 10/15/16 10/15/16 05:20 05:31 05:41 Temperature Pulse Rate 150 H 157 H 138 H Respiratory 21 19 18 Rate Blood Pressure 88/58 102/64 101/61 O2 Sat by Pulse Oximetry 10/15/16 10/15/16 10/15/16 05:51 06:01 06:11 Temperature Pulse Rate 143 H 152 H 159 H Respiratory 18 19 18 Rate Blood Pressure 96/60 114/68 114/68 O2 Sat by Pulse 99 97 Oximetry 10/15/16 10/15/16 10/15/16 06:21 06:31 06:41 Temperature Pulse Rate 152 H 140 H 141 H Respiratory 19 19 20 Rate Blood Pressure 116/76 110/64 110/64 O2 Sat by Pulse Oximetry 10/15/16 10/15/16 10/15/16 06:51 07:00 07:11 Temperature Pulse Rate 158 H 151 H 113 H Respiratory 20 20 20 Rate Blood Pressure 106/70 117/73 117/73 O2 Sat by Pulse Oximetry 10/15/16 10/15/16 10/15/16 07:21 07:31 07:41 Temperature Pulse Rate 179 H 153 H 158 H Respiratory 20 20 20 Rate Blood Pressure 123/86 122/78 122/78 O2 Sat by Pulse 96 98 98 Oximetry 10/15/16 10/15/16 10/15/16 07:51 08:00 08:01 Temperature 97.1 F L Pulse Rate 171 H 155 H Respiratory 20 20 Rate Blood Pressure 118/85 125/79 O2 Sat by Pulse 99 98 Oximetry 10/15/16 10/15/16 10/15/16 08:11 08:21 08:30 Temperature Pulse Rate 163 H 144 H 142 H Respiratory 21 20 21 Rate Blood Pressure 125/79 134/88 108/75 O2 Sat by Pulse 98 98 97 Oximetry 10/15/16 10/15/16 10/15/16 08:41 08:49 08:51 Temperature Pulse Rate 146 H 153 H 149 H Respiratory 24 30 H 22 Rate Blood Pressure 108/75 108/75 109/72 O2 Sat by Pulse 100 100 100 Oximetry 10/15/16 09:00 Temperature Pulse Rate 127 H Respiratory 30 H Rate Blood Pressure 103/66 O2 Sat by Pulse 100 Oximetry - General Appearance General appearance: other (Not awake or alert or oriented. On Bipap. Obtunded) Neck: no JVD, supple Respiratory: Present: Decreased Breath Sounds Cardiology: irregular, tachycardia, S1S2 Gastrointestinal: normoactive bowel sounds Integumentary: warm and dry Neurologic: other (Obtunded) Musculoskeletal: other (Has 1+ edema to bilateral lower extremities) - Lab 10/15/16 05:35 10/15/16 05:35 Most recent lab results Calcium 7.7 mg/dL (8.4-10.2) L 10/15/16 05:35 Phosphorus 10.10 mg/dL (2.5-4.5) H D 10/15/16 05:35
--- NOTE | 2016-10-15 11:32 | XRay Report ---
AP CHEST: 10/15/16 20:21 CLINICAL: Right PICC line insertion. FINDINGS: Since 10/13/16, a right PICC line has been inserted and the PICC line tip is in the lower SVC. A right Vas-Cath tip is in the right atrium and unchanged. No pneumothorax. Stable cardiomegaly. Mild central vascular congestion with redistribution of pulmonary blood flow to the upper lobes. No pulmonary consolidation. IMPRESSION: Satisfactory right PICC line placement. Cardiomegaly but no CHF.
[2016-10-15] MEDS: SODIUM BICARBONATE PO SCH ×2 (11:34→21:58)
[2016-10-15] MEDS: DECADRON IV SCH ×2 (12:09→20:31)
[2016-10-15] MEDS: TYLENOL PR PRN (12:36)
[2016-10-15] MEDS: BENADRYL IV PRN (12:37)
--- NOTE | 2016-10-15 13:22 | Ultrasound Report ---
ABDOMINAL ULTRASOUND: 10/13/16 14:36:00 CLINICAL: Elevated liver function tests and coagulopathy. FINDINGS: High-resolution ultrasound demonstrated an enlarged liver with normal contour and echogenicity. The right lobe measures approximately 18 cm in length. No liver nodularity or mass. Normal hepatic vasculature and inferior vena cava. The gallbladder is normal except for a mildly thickened wall measuring 2.6 mm. No cholelithiasis. Mild ascitic fluid adjacent to the gallbladder. Normal bile ducts. The common bile duct measured 2.7 mm diameter. The pancreas was well imaged and normal Normal abdominal aorta. A normal spleen measured 8.1cm. Normal non-dilated renal collecting systems and ureters. Moderate increased echogenicity of the kidneys. The right kidney measured 9.9 x 3.8 x 3.9cm. The left kidney measured 9.0 x 4.8 x 4.3cm. No renal mass or calculus. No mass or lymphadenopathy. IMPRESSION: 1. Hepatomegaly. 2. No signs of cirrhosis or portal hypertension. 3. No cholelithiasis. 4. Bilateral renal disease.
--- NOTE | 2016-10-15 15:42 | Progress Note ---
Assessment and Plan Assessment and plan: 61-year-old -[place] male with no significant past medical history presented to the emergency department complaining of bilateral leg swelling that worsened for the last 4 days. The swelling is progressed gradually. Patient denied shortness of breath, orthopenia, PND, palpitations or dizziness. Patient denied bleeding from any sites of his body. Patient has never seen a physician for the last 5 years. Patient checked his blood pressure regularly at [facility] was usually in the normal limit. Patient has been taking Aleve since Monday for leg swelling. Patient denied any chest pain. 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 * Nebulizer treatment * Discussed with Nephrology and oncology, cardiology and awaiting infectious disease input. * We'll obtain MRI brain also CT abdomen and pelvis once patient clinically stable. * The patient on D10 Due to persistent Hypoglycemia-will give an amp of D50 * PICC line placement for better access * critically ill patient * if no neurology improvement will obtain Neurology eval * Eval for possibly hemolytic syndrome considering * peripheral smear * DVT/GI prophy * plan of care discussed in detail with spouse * Patient is critically sick 35 mins critical care time spent. Spouse updated, may need History Interval history: Patient seen and examined this morning remains confused, on BIPAP at this time for respiratory support. . No other acute events reported by nursing staff except for recurrent hypoglycemic state. Spouse at bedside. Hospitalist Physical - Physical exam Narrative exam: VITAL SIGNS: Reviewed. GENERAL: The patient appeared well nourished and normally developed. Vital signs as documented. HEAD: No signs of head trauma. EYES: Pupils are equal. Extraocular motions intact. EARS: Hearing grossly intact. MOUTH: Oropharynx is normal. NECK: No adenopathy, no JVD. CHEST: Chest with diminshed, breath sounds bilaterally. No wheezes, rales, or rhonchi. CARDIAC: Regular rate and rhythm. S1 and S2, without murmurs, gallops, or rubs. VASCULAR: EDEMA UPPER EXT AND LOWER +2. Peripheral pulses normal and equal in all extremities. ABDOMEN: Soft, without detectable tenderness. No sign of distention. No rebound or guarding, and no masses palpated. Bowel Sounds normal. MUSCULOSKELETAL: Good range of motion of all major joints. Extremities without clubbing, cyanosis. +2 EDEMA UPPER AND LOWER EXT. NEUROLOGIC EXAM: Awake but lethargic, oriented 1 to person intermittently confused. No focal sensory or strength deficits. Speech normal. Follows some commands. PSYCHIATRIC: Mood normal. SKIN: No rash or lesions. - Constitutional Vitals: Temp Pulse Resp BP Pulse Ox 97.6 F 85 26 H 116/82 85 10/15/16 12:00 10/15/16 12:51 10/15/16 12:00 10/15/16 12:51 10/15/16 12:51 General appearance: Present: severe distress Results - Labs CBC & Chem 7: 10/15/16 05:35 10/15/16 05:35 Labs: Laboratory Last Values WBC 7.6 K/mm3 (4.5-11.0) 10/15/16 05:35 RBC 2.62 M/mm3 (3.65-5.03) L 10/15/16 05:35 Hgb 8.1 gm/dl (11.8-15.2) L 10/15/16 05:35 Hct 25.8 % (35.5-45.6) L 10/15/16 05:35 MCV 98 fl (84-94) H D 10/15/16 05:35 MCH 31 pg (28-32) 10/15/16 05:35 MCHC 31 % (32-34) L 10/15/16 05:35 RDW 21.2 % (13.2-15.2) H 10/15/16 05:35 Plt Count 61 K/mm3 (140-440) L 10/15/16 05:35 Lymph % (Auto) [employer] 10/14/16 04:34 [place] % (Auto) [employer] 10/14/16 04:34 Eos % (Auto) [employer] 10/14/16 04:34 Baso % (Auto) [employer] 10/14/16 04:34 Lymph # [employer] 10/14/16 04:34 [place] # [employer] 10/14/16 04:34 Eos # [employer] 10/14/16 04:34 Baso # [employer] 10/14/16 04:34 Add Manual Diff Complete 10/15/16 05:35 Total Counted 100 10/15/16 05:35 Seg Neutrophils % [employer] 10/15/16 05:35 Seg Neuts % (Manual) 27.0 % (40.0-70.0) L 10/15/16 05:35 Band Neutrophils % 45.0 % 10/15/16 05:35 Lymphocytes % (Manual) 10.0 % (13.4-35.0) L 10/15/16 05:35 Reactive Lymphs % (Man) 0 % 10/15/16 05:35 Monocytes % (Manual) 6.0 % (0.0-7.3) 10/15/16 05:35 Eosinophils % (Manual) 1.0 % (0.0-4.3) 10/15/16 05:35 Basophils % (Manual) 0 % (0.0-1.8) 10/15/16 05:35 Metamyelocytes % 2.0 % 10/15/16 05:35 Myelocytes % 0 % 10/15/16 05:35 Promyelocytes % 9.0 % 10/15/16 05:35 Blast Cells % 0 % 10/15/16 05:35 Nucleated RBC % 2.0 % (0.0-0.9) H 10/15/16 05:35 Seg Neutrophils # [employer] 10/14/16 04:34 Seg Neutrophils # Man 2.1 K/mm3 (1.8-7.7) 10/15/16 05:35 Band Neutrophils # 3.4 K/mm3 10/15/16 05:35 Lymphocytes # (Manual) 0.8 K/mm3 (1.2-5.4) L 10/15/16 05:35 Abs React Lymphs (Man) 0.0 K/mm3 10/15/16 05:35 Monocytes # (Manual) 0.5 K/mm3 (0.0-0.8) 10/15/16 05:35 Eosinophils # (Manual) 0.1 K/mm3 (0.0-0.4) 10/15/16 05:35 Basophils # (Manual) 0.0 K/mm3 (0.0-0.1) 10/15/16 05:35 Metamyelocytes # 0.2 K/mm3 10/15/16 05:35 Myelocytes # 0.0 K/mm3 10/15/16 05:35 Promyelocytes # 0.7 K/mm3 10/15/16 05:35 Blast Cells # 0.0 K/mm3 10/15/16 05:35 WBC Morphology Not Reportable 10/15/16 05:35 Hypersegmented Neuts Not Reportable 10/15/16 05:35 Hyposegmented Neuts Not Reportable 10/15/16 05:35 Hypogranular Neuts Not Reportable 10/15/16 05:35 Smudge Cells Not Reportable 10/15/16 05:35 Toxic Granulation Not Reportable 10/15/16 05:35 Toxic Vacuolation Not Reportable 10/15/16 05:35 Dohle Bodies Few 10/15/16 05:35 Pelger-Huet Anomaly Not Reportable 10/15/16 05:35 Madhu Rods Not Reportable 10/15/16 05:35 Platelet Estimate Consistent w auto 10/15/16 05:35 Clumped Platelets Not Reportable 10/15/16 05:35 Plt Clumps, EDTA Not Reportable 10/15/16 05:35 Large Platelets Few 10/15/16 05:35 Giant Platelets Not Reportable 10/15/16 05:35 Platelet Satelliting Not Reportable 10/15/16 05:35 Plt Morphology Comment Not Reportable 10/15/16 05:35 RBC Morphology Not Reportable 10/15/16 05:35 Dimorphic RBCs Not Reportable 10/15/16 05:35 Polychromasia Not Reportable 10/15/16 05:35 Hypochromasia 1+ 10/15/16 05:35 Poikilocytosis Not Reportable 10/15/16 05:35 Anisocytosis 1+ 10/15/16 05:35 Microcytosis Not Reportable 10/15/16 05:35 Macrocytosis Not Reportable 10/15/16 05:35 Spherocytes Not Reportable 10/15/16 05:35 Pappenheimer Bodies Not Reportable 10/15/16 05:35 Sickle Cells Not Reportable 10/15/16 05:35 Target Cells Not Reportable 10/15/16 05:35 Tear Drop Cells Rare 10/15/16 05:35 Ovalocytes Not Reportable 10/15/16 05:35 Helmet Cells Not Reportable 10/15/16 05:35 Goodman-Bonny Doon Bodies Not Reportable 10/15/16 05:35 Happy Rings Not Reportable 10/15/16 05:35 Denbo Cells Few 10/15/16 05:35 Bite Cells Not Reportable 10/15/16 05:35 Crenated Cell Not Reportable 10/15/16 05:35 Elliptocytes Few 10/15/16 05:35 Acanthocytes (Spur) Not Reportable 10/15/16 05:35 Rouleaux Not Reportable 10/15/16 05:35 Hemoglobin C Crystals Not Reportable 10/15/16 05:35 Schistocytes Not Reportable 10/15/16 05:35 Malaria parasites Not Reportable 10/15/16 05:35 ESR 77 mm/Hr (0-20) 10/14/16 04:34 Pal Bodies Not Reportable 10/15/16 05:35 Hem Pathologist Commnt No 10/15/16 05:35 PT 28.9 Sec. (12.2-14.9) H 10/14/16 21:25 INR 2.71 (0.87-1.13) H 10/14/16 21:25 Fibrinogen 557 mg/dl (211-480) H 10/14/16 09:58 POC ABG pH 7.189 (7.35-7.45) L 10/15/16 06:22 POC ABG pCO2 28.9 (35-45) L 10/15/16 06:22 POC ABG pO2 81 (80-105) 10/15/16 06:22 POC ABG HCO3 11.0 10/15/16 06:22 POC ABG Total CO2 12 10/15/16 06:22 POC ABG O2 Sat 93 10/15/16 06:22 POC ABG Base Excess -17 10/15/16 06:22 FiO2 21 % 10/15/16 06:22 Sodium 136 mmol/L (137-145) L 10/15/16 05:35 Potassium 5.3 mmol/L (3.6-5.0) H D 10/15/16 05:35 Chloride 91.4 mmol/L (98-107) L 10/15/16 05:35 Carbon Dioxide 6 mmol/L (22-30) L* D 10/15/16 05:35 Anion Gap 44 mmol/L 10/15/16 05:35 BUN 57 mg/dL (9-20) H 10/15/16 05:35 Creatinine 7.1 mg/dL (0.8-1.5) H 10/15/16 05:35 Estimated GFR 8 ml/min 10/15/16 05:35 BUN/Creatinine Ratio 8.02 % 10/15/16 05:35 Glucose 11 mg/dL (75-100) L* 10/15/16 05:35 POC Glucose 63 (70-105) L 10/15/16 08:00 Lactic Acid 16.30 mmol/L (0.7-2.0) H* 10/15/16 12:00 Uric Acid 8.0 mg/dL (3.5-7.6) H 10/14/16 03:00 Calcium 7.7 mg/dL (8.4-10.2) L 10/15/16 05:35 Phosphorus 10.10 mg/dL (2.5-4.5) H D 10/15/16 05:35 Iron 146 ug/dL (49-181) 10/15/16 05:35 TIBC 166 mcg/dL (250-450) L 10/15/16 05:35 Ferritin 9562.0 ng/mL (13.0-400.0) H 10/15/16 05:35 Total Bilirubin 1.30 mg/dL (0.1-1.2) H 10/14/16 09:58 Direct Bilirubin 1.1 mg/dL (0-0.2) H 10/14/16 09:58 Indirect Bilirubin 0.2 mg/dL 10/14/16 09:58 AST 17 units/L (5-40) 10/13/16 10:14 ALT 24 units/L (7-56) 10/13/16 10:14 Alkaline Phosphatase 76 units/L (35-129) 10/13/16 10:14 Lactate Dehydrogenase 3871 units/L (91-180) H 10/15/16 05:35 Troponin T 0.079 ng/mL (0.00-0.029) H 10/13/16 10:14 C-Reactive Protein 40.40 mg/dL (0.00-1.30) H 10/14/16 12:52 NT-Pro-B Natriuret Pep > 84146 pg/mL (0-900) H 10/13/16 10:14 Total Protein 6.4 g/dL (6.3-8.2) 10/13/16 10:14 Albumin 2.3 g/dL (3.9-5) L 10/13/16 10:14 Albumin/Globulin Ratio 0.6 % 10/13/16 10:14 Triglycerides 119 mg/dL (2-149) 10/13/16 10:14 Cholesterol 71 mg/dL (50-199) 10/13/16 10:14 LDL Cholesterol Direct 41 mg/dL (50-130) L 10/13/16 10:14 HDL Cholesterol 7 mg/dL (40-59) L 10/13/16 10:14 Cholesterol/HDL Ratio 10.14 % 10/13/16 10:14 Lipase 21 units/L (13-60) 10/15/16 05:35 Vitamin B12 893.9 pg/mL (211-911) 10/14/16 03:00 Hep Bs Antigen Non-reactive (Negative) 10/13/16 14:50 Hepatitis C Antibody Non-reactive (NonReactive) 10/13/16 14:50 HIV 1&2 Antibody Rapid Non react (Non React) 10/13/16 14:50 HIV P24 Antigen Non react (Non React) 10/13/16 14:50 Schistocytes Smear None seen 10/15/16 12:00 Blood Type O POSITIVE 10/13/16 14:05 Antibody Screen TNR 10/13/16 14:05 MADIHA Antibody Screen Negative 10/13/16 14:05 Direct Antiglob Test Negative 10/14/16 03:00 ELAINE, Poly Interpret Negative 10/14/16 03:00 Crossmatch See Detail 10/13/16 14:05
[2016-10-15 16:48] LABS: ISTAT Base Excess -13; ISTAT HCO3 13.4; ISTAT PCO2 25.8 (35-45); ISTAT PH 7.323 (7.35-7.45); ISTAT PO2 135 (80-105); ISTAT SO2 99; ISTAT TCO2 14
--- NOTE | 2016-10-15 17:57 | Consultation ---
PULMONARY CRITICAL CARE CONSULTATION CONSULTING PHYSICIAN: Torres Mota MD, Hospitalist REASON FOR CONSULTATION: Critical care admission. Essentially hypoxemic respiratory failure, acute kidney injury, altered mental status. CHIEF COMPLAINT AND HISTORY OF PRESENT ILLNESS: The patient is a 61-year-old -[place] male whose says his only real past medical history was a history of hypertension; however, a few years ago, he stopped taking his medications. 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 He was brought into the Emergency Department from home with a 3-4 day history of initially lower extremity swelling, by which I mean just his feet were swollen. According to her, he was fine on Mother's Day. He was dancing with his daughters, had no trouble and then the swelling continued to increase involving the lower extremities, the right upper extremity and then he also complained of pain in these areas. He had denied any chest pain. He admits to congestion with cough productive of yellowish phlegm. He denied nausea, vomiting. Denied fevers or chills. Denied any constitutional symptoms. He was evaluated, found to have a bunch of electrolyte abnormalities. He also had an element of delirium/confusion. They deny any prior history suggestive of dementia. He was admitted to the Intensive Care Unit for emergent dialysis. When I stopped by to see him, he still had some soft restraints, seemed to be become a little bit more appropriate. That really is as much of the history of presentation as I have. With regards to his tobacco use/abuse history, he is a never smoker. PAST MEDICAL HISTORY: Hypertension. PAST SURGICAL HISTORY: Denies. MEDICATIONS: Medications he was on at the time I stopped by to see him, according to the medication administration record included the following: Pepcid 20 mg p.o. daily, Haldol 5 mg IM q 6 hours p.r.n. agitation, heparin 5000 units IV p.r.n. during dialysis. He is also on heparin 5000 units subcutaneous q.8 hours., Zofran 4 mg IV q. 8 hours p.r.n. nausea and vomiting, Zosyn 2.25 grams IV q.8 hours, sodium bicarbonate 650 mg p.o. b.i.d. He is on a D10 drip now at a 125 mL per hour and received vancomycin 1 dose, I believe there was a 1.25 gram dose. ALLERGIES: No known drug allergies. DIET: Thin gentleman, acute. He has gained water weight over the past 3-4 days. FAMILY AND SOCIAL HISTORY: Lives in the community. Denied alcohol, tobacco, or illicit drug use or abuse. Family history, otherwise noncontributory. REVIEW OF SYSTEMS: Difficult to obtain from the patient in terms of really his cognitive status; however, since he has been here, no gross hematochezia or melena and the family denies any. No gross hematuria or dysuria. No hematemesis, no hemoptysis, no palpitations. No seizures. REVIEW OF SYSTEMS: Complete review of systems is obtained, 14 system. Pertinent positives and/or negatives as in body of history above, otherwise they are noncontributory. PHYSICAL EXAMINATION: VITAL SIGNS: At presentation in the Emergency Room, was afebrile, temperature 98.2 Fahrenheit, pulse 89, respiratory rate was 18, blood pressure 133/86, oxygen sats were 98%, inspired oxygen concentration was not recorded. HEAD, EYES, EARS, NOSE AND THROAT: Pupils are equal, round, about 4 mm, reactive to light. Extraocular muscle movements appeared intact. Oropharynx is a Mallampati #2 oropharynx with mild oropharyngeal dryness. Grossly, no palpable lymph nodes in the supraclavicular or submandibular lymph node chains. He had a right IJ Vas cath and subclavian Vas cath in place. No significant bleeding or exudation around it. LUNGS: Auscultation of both lung clay significant for diminished bilateral breath sounds as well as diminished bibasilar in particular right lower lobe air entry. No wheezing. HEART: Heart sounds 1 and 2 are heard. They were regular in rate and rhythm at time of my evaluation. ABDOMEN: Soft, full, flat. Bowel sounds positive, nontender. EXTREMITIES: With about 1+ now, was about 2+ yesterday. Bipedal pitting edema as well as edema to the right upper extremity. NEUROLOGIC: The exam was grossly nonfocal, but he had a little bit of cognitive defect. LABORATORY DATA: From my review are as follows: Admission white cell count was 1200 with a hemoglobin of 6.7, hematocrit of 20.5, and platelet count of 121. He had 26 band neutrophils reported, 26%. Serum sodium was 130, potassium 5.5, chloride 90, bicarbonate 15, BUN was 115, creatinine was 14.5 and glucose was 76. Troponin 0.08. BNP was greater than 70,000, albumin 2.3. Otherwise, liver function tests within normal limits. LDL cholesterol is 41. HIV nonreactive, a few schistocytes were seen on the blood peripheral smear. Lactate dehydrogenase level is elevated at 406. Lactic acid level is elevated at 11.6 and serum glucose was 19. Blood cultures have been drawn and results are pending. Radio imaging: Chest x-ray was done. I have reviewed the x-ray as well as the radiologist's interpretation and I agree with it. May have small pleural effusion on the right, borderline cardiomegaly, mild enlargement of the right main pulmonary trunk. No gross pneumothorax, no gross bony fracture really not to remarkable. CT scan was done of the head. It was read as vague hypodensity in the left anterior internal capsule, could not rule out an acute infarct. Bilateral Dopplers have been ordered and done of her lower extremities. No DVTs in the lower extremities and as far as the upper extremity no DVT is noted. Renal ultrasound is also being done. It shows medical renal disease. No acute renal abnormality. A small pleural effusion on the left was also seen on that one. An echocardiogram has been done, the result is pending. Post Vas cath chest x-ray did not reveal any pneumothorax according to the report. ASSESSMENT AND PLAN: We have an elderly gentleman status post essentially increasing shortness of breath, altered mental status, thrombocytopenia. This gentleman certainly is meeting certain criteria for TTP diagnosis with a history of use of herbal supplements. 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 From a respiratory standpoint, he is doing relatively well. We will provide supplemental oxygen to keep sats greater than or equal to about 92%. Aspiration precautions will be maintained and bronchodilators will be on a p.r.n. basis. Now from a Cardiovascular standpoint 2D echocardiogram has been done. I doubt we are actually dealing with infarct or congestive heart failure, although I would follow report. I believe we will follow him clinically. Cardiology consultation will be at the behest of the attending physician. From an Infectious Disease standpoint as discussed during rounds earlier today, it is appropriate that we empirically cover him for possible infection and go ahead and draw cultures before institution of antibiotics. He has been pancultured. The elevated lactic acid levels certainly are bothersome. We will be getting the CRP level to try and correlate that and that is elevated at 40.4 and so I think it is appropriate to cover for an infectious process. Infectious Disease consultation will also be placed. Anti-infectives will ultimately be deescalated based on results of clinical and microbiologic data. From a renal standpoint, he has been seen by the dining room host/hostess as mentioned, there is also a possibility of this being TTP kind situation and for now he has been dialyzed. He has responded to that. Electrolytes will be corrected as necessary. Inputs and outputs will be followed. From a hematologic standpoint, we could certainly be dealing with blood dyscrasia and also with pancytopenia. Hematology consult certainly is an order in this gentleman while we continue to cover him empirically with antibiotics. I will discuss with port engineer to see if plasmapheresis for example will be of benefit in this gentleman and for now, he is on DVT prophylaxis that will be in the form of SCDs. I am going to go ahead and discontinue the heparin just in light of all the overall picture with a negative DVTs. We will discontinue the heparin for now and then I await Hematology consultation. From a MENTAL HYGIENIST standpoint, the exam is grossly nonfocal. He still has a little bit of confusion, which I would say it might just be due to the infection and azotemia. We will go ahead and we will follow recommendations of the neurologist. We will get an MRI of the brain in the short term. Now from a general and hospital healthcare maintenance standpoint, he is appropriately on GI prophylaxis as well as DVT prophylaxis. Flu and pneumonia vaccination will be per protocol. Thank you very much for the interesting case. We will follow along and make further recommendations as picture progresses/becomes clearer. At this point, I have spent a total of about 35-40 minutes of critical care time without overlap and excluding any procedural time that may be necessary. He is critically ill at risk for further deterioration including . JOB# [id number] PAR[facility]/ALMA
[2016-10-15] MEDS ORDERED: D10W 1,000 ML with SODIUM BICARBONATE 150 MEQ IV SCH (18:00)
[2016-10-15] MEDS: PEPCID IV SCH (20:31)
[2016-10-16] MEDS: D50W (25GM) IV PRN ×4 (03:05→21:26)
[2016-10-16] MEDS: DECADRON IV SCH ×3 (04:13→20:43)
[2016-10-16] MEDS: ZOSYN/NS 2.25 GM/50ML 2.25 GM/50 ML BAG IV SCH (05:18)
[2016-10-16] MEDS ORDERED: CALCIUM GLUCONATE 1,000 MG in NACL 0.9% 100 ML IV NR (06:00)
[2016-10-16 08:57] LABS: ISTAT Base Excess 5; ISTAT HCO3 27.3; ISTAT PCO2 32.9 (35-45); ISTAT PH 7.527 (7.35-7.45); ISTAT PO2 119 (80-105); ISTAT SO2 99; ISTAT TCO2 28
[2016-10-16] MEDS ORDERED: CALCIUM GLUCONATE 1,000 MG in NACL 0.9% 100 ML IV ONE (09:00)
[2016-10-16] MEDS: TYLENOL PR PRN (09:00)
[2016-10-16] MEDS: BENADRYL IV PRN (09:02)
--- NOTE | 2016-10-16 09:03 | Progress Note ---
Assessment and Plan Assessment and plan: 61-year-old -[place] male with no significant past medical history presented to the emergency department complaining of bilateral leg swelling that worsened for the last 4 days. The swelling is progressed gradually. Patient denied shortness of breath, orthopenia, PND, palpitations or dizziness. Patient denied bleeding from any sites of his body. Patient has never seen a physician for the last 5 years. Patient checked his blood pressure regularly at [facility] was usually in the normal limit. Patient has been taking Aleve since Monday for leg swelling. Patient denied any chest pain. * Acute metabolic encephalopathy * AFIB WITH RVR * beta hemolitic strep BACTERIMIA * Acute Respiratory failure with hypoxia * Pancytopenia [leukopenia, severe anemia, Woresening thrombocytopenia] POSSIBLE LYMPHOMA * ?DIC * End-stage renal disease * secondary coagulopathy * Lactic acidosis * Probable TTP, HUS, Amyloidosis * persistent hypoglycemia * Acute systolic congestive heart failure EF around 30% * SEVERE SEPSIS plan: * STARTED ON PLASMAPHERSIS * AWAITING TODAYS LABS, Lactic ACID TRENDING DOWN SLOWLY NOW 18 AFTER >21 * ON HD also. 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 * Nebulizer treatment * Discussed with Nephrology and oncology, cardiology and awaiting infectious disease input. * We'll obtain MRI brain also CT abdomen and pelvis once patient clinically stable. * The patient on D10 Due to persistent Hypoglycemia-will give an amp of D50 * PICC line placement for better access- May need to be removed if no improvement but before discontinuation of abx * critically ill patient * if no neurology improvement will obtain Neurology eval * Eval for possibly hemolytic syndrome considering * peripheral smear * DVT/GI prophy * plan of care discussed in detail with spouse * Patient is critically sick 40 mins critical care time spent. Spouse updated, may need MECHANICAL VENTILATORY SUPPORT History Interval history: Patient seen and examined this morning remains confused, on BIPAP at this time for respiratory support. Went into Afib yesterday started on Amiodarone Spouse at bedside. Hospitalist Physical - Physical exam Narrative exam: VITAL SIGNS: Reviewed. GENERAL: The patient appeared well nourished and normally developed. CONTINUES ON BIPAP Vital signs as documented. HEAD: No signs of head trauma. EYES: Pupils are equal. Extraocular motions intact. EARS: Hearing grossly intact. MOUTH: Oropharynx is normal. NECK: No adenopathy, no JVD. CHEST: Chest with diminshed, breath sounds bilaterally. CRACKLES, INCREASED WORK OF BREATHING CARDIAC: Regular rate and rhythm. S1 and S2, without murmurs, gallops, or rubs. VASCULAR: EDEMA UPPER EXT AND LOWER +3. Peripheral pulses normal and equal in all extremities. ABDOMEN: Soft, without detectable tenderness. No sign of distention. No rebound or guarding, and no masses palpated. Bowel Sounds normal. MUSCULOSKELETAL: Good range of motion of all major joints. Extremities without clubbing, cyanosis. +e EDEMA UPPER AND LOWER EXT. NEUROLOGIC EXAM: Awake but lethargic, oriented 1 to person intermittently confused. No focal sensory or strength deficits. Speech normal. Follows some commands. PSYCHIATRIC: Mood ANXIOUS. SKIN: No rash or lesions. - Constitutional Vitals: Temp Pulse Resp BP Pulse Ox 98.2 F 127 H 29 H 115/89 97 10/16/16 08:00 10/16/16 08:34 10/16/16 08:34 10/16/16 08:34 10/16/16 08:34 General appearance: Present: severe distress Results - Labs CBC & Chem 7: 10/16/16 11:15 10/16/16 11:15 Labs: Laboratory Last Values WBC 7.6 K/mm3 (4.5-11.0) 10/15/16 05:35 RBC 2.62 M/mm3 (3.65-5.03) L 10/15/16 05:35 Hgb 8.1 gm/dl (11.8-15.2) L 10/15/16 05:35 Hct 25.8 % (35.5-45.6) L 10/15/16 05:35 MCV 98 fl (84-94) H D 10/15/16 05:35 MCH 31 pg (28-32) 10/15/16 05:35 MCHC 31 % (32-34) L 10/15/16 05:35 RDW 21.2 % (13.2-15.2) H 10/15/16 05:35 Plt Count 61 K/mm3 (140-440) L 10/15/16 05:35 Lymph % (Auto) Hairspring I Inspector 10/14/16 04:34 [place] % (Auto) Hairspring I Inspector 10/14/16 04:34 Eos % (Auto) Hairspring I Inspector 10/14/16 04:34 Baso % (Auto) Hairspring I Inspector 10/14/16 04:34 Lymph # Hairspring I Inspector 10/14/16 04:34 [place] # Hairspring I Inspector 10/14/16 04:34 Eos # Hairspring I Inspector 10/14/16 04:34 Baso # Hairspring I Inspector 10/14/16 04:34 Add Manual Diff Complete 10/15/16 05:35 Total Counted 100 10/15/16 05:35 Seg Neutrophils % Hairspring I Inspector 10/15/16 05:35 Seg Neuts % (Manual) 27.0 % (40.0-70.0) L 10/15/16 05:35 Band Neutrophils % 45.0 % 10/15/16 05:35 Lymphocytes % (Manual) 10.0 % (13.4-35.0) L 10/15/16 05:35 Reactive Lymphs % (Man) 0 % 10/15/16 05:35 Monocytes % (Manual) 6.0 % (0.0-7.3) 10/15/16 05:35 Eosinophils % (Manual) 1.0 % (0.0-4.3) 10/15/16 05:35 Basophils % (Manual) 0 % (0.0-1.8) 10/15/16 05:35 Metamyelocytes % 2.0 % 10/15/16 05:35 Myelocytes % 0 % 10/15/16 05:35 Promyelocytes % 9.0 % 10/15/16 05:35 Blast Cells % 0 % 10/15/16 05:35 Nucleated RBC % 2.0 % (0.0-0.9) H 10/15/16 05:35 Seg Neutrophils # Hairspring I Inspector 10/14/16 04:34 Seg Neutrophils # Man 2.1 K/mm3 (1.8-7.7) 10/15/16 05:35 Band Neutrophils # 3.4 K/mm3 10/15/16 05:35 Lymphocytes # (Manual) 0.8 K/mm3 (1.2-5.4) L 10/15/16 05:35 Abs React Lymphs (Man) 0.0 K/mm3 10/15/16 05:35 Monocytes # (Manual) 0.5 K/mm3 (0.0-0.8) 10/15/16 05:35 Eosinophils # (Manual) 0.1 K/mm3 (0.0-0.4) 10/15/16 05:35 Basophils # (Manual) 0.0 K/mm3 (0.0-0.1) 10/15/16 05:35 Metamyelocytes # 0.2 K/mm3 10/15/16 05:35 Myelocytes # 0.0 K/mm3 10/15/16 05:35 Promyelocytes # 0.7 K/mm3 10/15/16 05:35 Blast Cells # 0.0 K/mm3 10/15/16 05:35 WBC Morphology Not Reportable 10/15/16 05:35 Hypersegmented Neuts Not Reportable 10/15/16 05:35 Hyposegmented Neuts Not Reportable 10/15/16 05:35 Hypogranular Neuts Not Reportable 10/15/16 05:35 Smudge Cells Not Reportable 10/15/16 05:35 Toxic Granulation Not Reportable 10/15/16 05:35 Toxic Vacuolation Not Reportable 10/15/16 05:35 Dohle Bodies Few 10/15/16 05:35 Pelger-Huet Anomaly Not Reportable 10/15/16 05:35 Madhu Rods Not Reportable 10/15/16 05:35 Platelet Estimate Consistent w auto 10/15/16 05:35 Clumped Platelets Not Reportable 10/15/16 05:35 Plt Clumps, EDTA Not Reportable 10/15/16 05:35 Large Platelets Few 10/15/16 05:35 Giant Platelets Not Reportable 10/15/16 05:35 Platelet Satelliting Not Reportable 10/15/16 05:35 Plt Morphology Comment Not Reportable 10/15/16 05:35 RBC Morphology Not Reportable 10/15/16 05:35 Dimorphic RBCs Not Reportable 10/15/16 05:35 Polychromasia Not Reportable 10/15/16 05:35 Hypochromasia 1+ 10/15/16 05:35 Poikilocytosis Not Reportable 10/15/16 05:35 Anisocytosis 1+ 10/15/16 05:35 Microcytosis Not Reportable 10/15/16 05:35 Macrocytosis Not Reportable 10/15/16 05:35 Spherocytes Not Reportable 10/15/16 05:35 Pappenheimer Bodies Not Reportable 10/15/16 05:35 Sickle Cells Not Reportable 10/15/16 05:35 Target Cells Not Reportable 10/15/16 05:35 Tear Drop Cells Rare 10/15/16 05:35 Ovalocytes Not Reportable 10/15/16 05:35 Helmet Cells Not Reportable 10/15/16 05:35 Goodman-Bern Bodies Not Reportable 10/15/16 05:35 Doole Rings Not Reportable 10/15/16 05:35 [place] Cells Few 10/15/16 05:35 Bite Cells Not Reportable 10/15/16 05:35 Crenated Cell Not Reportable 10/15/16 05:35 Elliptocytes Few 10/15/16 05:35 Acanthocytes (Spur) Not Reportable 10/15/16 05:35 Rouleaux Not Reportable 10/15/16 05:35 Hemoglobin C Crystals Not Reportable 10/15/16 05:35 Schistocytes Not Reportable 10/15/16 05:35 Malaria parasites Not Reportable 10/15/16 05:35 ESR 77 mm/Hr (0-20) 10/14/16 04:34 Pal Bodies Not Reportable 10/15/16 05:35 Haptoglobin 218 mg/dL (43-212) H 10/14/16 09:58 Hem Pathologist Commnt No 10/15/16 05:35 PT 28.9 Sec. (12.2-14.9) H 10/14/16 21:25 INR 2.71 (0.87-1.13) H 10/14/16 21:25 Fibrinogen 557 mg/dl (211-480) H 10/14/16 09:58 POC ABG pH 7.527 (7.35-7.45) H 10/16/16 08:34 POC ABG pCO2 32.9 (35-45) L 10/16/16 08:34 POC ABG pO2 119 (80-105) H 10/16/16 08:34 POC ABG HCO3 27.3 10/16/16 08:34 POC ABG Total CO2 28 10/16/16 08:34 POC ABG O2 Sat 99 10/16/16 08:34 POC ABG Base Excess 5 10/16/16 08:34 FiO2 25 % 10/16/16 08:34 Sodium 136 mmol/L (137-145) L 10/15/16 05:35 Potassium 5.3 mmol/L (3.6-5.0) H D 10/15/16 05:35 Chloride 91.4 mmol/L (98-107) L 10/15/16 05:35 Carbon Dioxide 6 mmol/L (22-30) L* D 10/15/16 05:35 Anion Gap 44 mmol/L 10/15/16 05:35 BUN 57 mg/dL (9-20) H 10/15/16 05:35 Creatinine 7.1 mg/dL (0.8-1.5) H 10/15/16 05:35 Estimated GFR 8 ml/min 10/15/16 05:35 BUN/Creatinine Ratio 8.02 % 10/15/16 05:35 Glucose 11 mg/dL (75-100) L* 10/15/16 05:35 POC Glucose 66 (70-105) L 10/16/16 07:58 Lactic Acid 18.00 mmol/L (0.7-2.0) H* 10/16/16 03:55 Uric Acid 8.0 mg/dL (3.5-7.6) H 10/14/16 03:00 Calcium 7.7 mg/dL (8.4-10.2) L 10/15/16 05:35 Phosphorus 10.10 mg/dL (2.5-4.5) H D 10/15/16 05:35 Iron 146 ug/dL (49-181) 10/15/16 05:35 TIBC 166 mcg/dL (250-450) L 10/15/16 05:35 Ferritin 9562.0 ng/mL (13.0-400.0) H 10/15/16 05:35 Total Bilirubin 1.30 mg/dL (0.1-1.2) H 10/14/16 09:58 Direct Bilirubin 1.1 mg/dL (0-0.2) H 10/14/16 09:58 Indirect Bilirubin 0.2 mg/dL 10/14/16 09:58 AST 17 units/L (5-40) 10/13/16 10:14 ALT 24 units/L (7-56) 10/13/16 10:14 Alkaline Phosphatase 76 units/L (35-129) 10/13/16 10:14 Lactate Dehydrogenase 3871 units/L (91-180) H 10/15/16 05:35 Troponin T 0.079 ng/mL (0.00-0.029) H 10/13/16 10:14 C-Reactive Protein 40.40 mg/dL (0.00-1.30) H 10/14/16 12:52 NT-Pro-B Natriuret Pep > 96654 pg/mL (0-900) H 10/13/16 10:14 Total Protein 6.4 g/dL (6.3-8.2) 10/13/16 10:14 Albumin 2.3 g/dL (3.9-5) L 10/13/16 10:14 Albumin/Globulin Ratio 0.6 % 10/13/16 10:14 Triglycerides 119 mg/dL (2-149) 10/13/16 10:14 Cholesterol 71 mg/dL (50-199) 10/13/16 10:14 LDL Cholesterol Direct 41 mg/dL (50-130) L 10/13/16 10:14 HDL Cholesterol 7 mg/dL (40-59) L 10/13/16 10:14 Cholesterol/HDL Ratio 10.14 % 10/13/16 10:14 Lipase 21 units/L (13-60) 10/15/16 05:35 Vitamin B12 893.9 pg/mL (211-911) 10/14/16 03:00 Complement C3 101 mg/dL (90-180) 10/13/16 14:50 Complement C4 16 mg/dL (16-47) 10/13/16 14:50 Hep Bs Antigen Non-reactive (Negative) 10/13/16 14:50 Hepatitis C Antibody Non-reactive (NonReactive) 10/13/16 14:50 HIV 1&2 Antibody Rapid Non react (Non React) 10/13/16 14:50 HIV P24 Antigen Non react (Non React) 10/13/16 14:50 Schistocytes Smear None seen 10/15/16 12:00 Blood Type O POSITIVE 10/13/16 14:05 Antibody Screen TNR 10/13/16 14:05 MADIHA Antibody Screen Negative 10/13/16 14:05 Direct Antiglob Test Negative 10/14/16 03:00 ELAINE, Poly Interpret Negative 10/14/16 03:00 Crossmatch See Detail 10/13/16 14:05
[2016-10-16] MEDS: CORDARONE 900 MG in D5W 482 ML IV SCH ×3 (09:04→23:49)
--- NOTE | 2016-10-16 09:25 | Consultation ---
History of Present Illness - Reason for Consult Consult date: 10/16/16 Sepsis; Bacteremia - History of Present Illness Mr. Sanders is a 61-year-old man with a reported history of hypertension admitted with bilateral, progressive lower extremity edema, found to have severe renal dysfunction as well as Streptococcal bacteremia on admission. The history is obtained from the medical record and the patient's nurse, as the patient is currently unable to provide this history. The patient presented with rapidly progressive lower extremity swelling and mental status changes over the past week prior to presenting. CT head could not rule out acute infarction. Lower extremity dopplers bilaterally showed no DVT. He had a tunneled vascath placed to undergo urgent plasmaphoresis/ dialysis as well as a PICC for other infusions and he was started empirically on Vancomycin and Zosyn. Blood cultures obtained on 10/14/16 are growing group B beta-hemolytic Strep in 2 of 4 bottles. The source is unknown. He has been afebrile until a low-grade fever to 100.5 deg F this morning. His blood pressure is stable and he is not on pressors. He is on Amiodarone for treatment of atrial fibrillation. He remains obtunded. A transthoracic echocardiogram shows systolic heart failure among other abnormalities, but does not report vegetations. In discussing the study with the interpreting caridologist, the windows were adequate. ID is consulted for further treatment recommendations. Past History Past Medical History: hypertension, other (Had shingles in November 27-) Past Surgical History: No surgical history Social history: , full code, other (Patienti s and lives with his ). denies: smoking, alcohol abuse, prescription drug abuse, IV drug use Family history: no significant family history Medications and Allergies Allergies Allergy/AdvReac Type Severity Reaction Status Date / Time No Known Allergies Allergy Unverified 10/13/16 09:41 Home Medications Medication Instructions Recorded Confirmed Last Taken Type Naproxen Sodium [Aleve TAB] 2 tab PO Q8H PRN 10/13/16 10/13/16 10/12/16 14:00 History Active Meds: Active Medications Acetaminophen (Tylenol) 650 mg PO Q6H PRN PRN Reason: pain Last Admin: 10/14/16 21:13 Dose: 650 mg Acetaminophen (Tylenol) 1,000 mg MI Q4H PRN PRN Reason: Pain, Mild (1-3) Last Admin: 10/15/16 12:36 Dose: 1,000 mg Dexamethasone (Decadron) 4 mg IV Q8H EDWINA Last Admin: 10/16/16 04:13 Dose: 4 mg Dextrose (D50w (25gm)) 25 ml IV PRN PRN PRN Reason: Hypoglycemia Last Admin: 10/16/16 08:30 Dose: 25 ml Diphenhydramine HCl (Benadryl) 50 mg IV Q6H PRN PRN Reason: Itching Last Admin: 10/16/16 09:02 Dose: 50 mg Famotidine (Pepcid) 20 mg IV Q24H EDWINA Last Admin: 10/15/16 20:31 Dose: 20 mg Haloperidol Lactate (Haldol) 5 mg IM Q6H PRN PRN Reason: Agitation Last Admin: 10/14/16 21:11 Dose: 5 mg Heparin Sodium (Porcine) (Heparin) 5,000 unit IV ROD PRN PRN Reason: hemodialysis Last Admin: 10/14/16 13:39 Dose: 5,000 unit Heparin Sodium (Porcine) (Heparin) 10,000 unit IV ROD PRN PRN Reason: for plasmapheresis- vascath Sodium Chloride (Nacl 0.9%) 100 mls @ 999 mls/hr IV ROD PRN PRN Reason: Hypotension Sodium Chloride (Nacl 0.9%) 100 mls @ 999 mls/hr IV ROD PRN PRN Reason: Hypotension Sodium Chloride (Nacl 0.9%) 100 mls @ 999 mls/hr IV ROD PRN PRN Reason: Hypotension Piperacillin Sod/Tazobactam Sod (Zosyn/Ns 2.25 Gm/50ml) 2.25 gm in 50 mls @ 100 mls/hr IV Q8HR EDWINA Last Admin: 10/16/16 05:18 Dose: 100 mls/hr Amiodarone HCl 900 mg/ (Dextrose) 500 mls @ 33.33 mls/hr IV DIRECT EDWINA; 1 MG /MIN PRN Reason: Protocol Last Admin: 10/16/16 09:04 Dose: 0.5 mg/min, 16.66 mls/hr Calcium Gluconate 1,000 mg/ (Sodium Chloride) 110 mls @ 660 mls/hr IV ONCE NR Stop: 10/16/16 12:00 Ondansetron HCl (Zofran) 4 mg IV Q8H PRN PRN Reason: Nausea And Vomiting Sodium Bicarbonate (Sodium Bicarbonate) 650 mg PO BID EDWINA Last Admin: 10/15/16 21:58 Dose: Not Given Vancomycin HCl (Vancomycin Pharmacy To Dose) 1 each IV PKCONSULT EDWINA PRN Reason: Protocol Review of Systems ROS unobtainable: due to mental status Physical Examination - Physical Exam Narrative exam: acutely ill-appearing man, BiPAP, unresponsive to voice or sternal rub - Constitutional Vitals: Vital Signs Temp Pulse Resp BP Pulse Ox 98.2 F 127 H 29 H 115/89 97 10/16/16 08:00 10/16/16 08:34 10/16/16 08:34 10/16/16 08:34 10/16/16 08:34 Temperature -Last 24 Hours Temperature 98.2 F Temperature 99.9 F Temperature 100.5 F Temperature 99.2 F Temperature 98.9 F Temperature 97.6 F - EENT Eyes: Absent: scleral icterus, conjunctival injection - Neck Neck: Present: supple - Respiratory Respiratory: bilateral: CTA, diminished - Cardiovascular Rhythm: irregularly irregular Heart Sounds: Absent: systolic murmur - Extremities Extremity abnormal: edema (trace pedal), other (patchy erythema along limbs, including feet; no peripheral stigmata of endocarditis) - Abdominal General gastrointestinal: Present: soft, non-distended - Integumentary Integumentary: Present: warm, erythema (patchy erythema and bullae) - Psychiatric Psychiatric: other (obtunded) - Additional findings Additional findings: right IJ vascath; PICC right arm Results - Labs CBC & Chem 7: 10/15/16 05:35 10/15/16 05:35 Labs: Abnormal lab results 10/14/16 10/15/16 10/15/16 Range/Units 09:58 09:57 11:42 Haptoglobin 218 H (43-212) mg/dL POC ABG pH (7.35-7.45) POC ABG pCO2 (35-45) POC ABG pO2 (80-105) POC Glucose 143 H 203 H (70-105) Lactic Acid (0.7-2.0) mmol/L 10/15/16 10/15/16 10/15/16 Range/Units 12:00 13:00 14:06 Haptoglobin (43-212) mg/dL POC ABG pH (7.35-7.45) POC ABG pCO2 (35-45) POC ABG pO2 (80-105) POC Glucose 136 H 132 H (70-105) Lactic Acid 16.30 H* (0.7-2.0) mmol/L 10/15/16 10/15/16 10/15/16 Range/Units 15:15 16:23 16:40 Haptoglobin (43-212) mg/dL POC ABG pH 7.323 L (7.35-7.45) POC ABG pCO2 25.8 L (35-45) POC ABG pO2 135 H (80-105) POC Glucose 64 L (70-105) Lactic Acid 20.40 H* (0.7-2.0) mmol/L 10/15/16 10/15/16 10/15/16 Range/Units 17:00 17:10 17:46 Haptoglobin (43-212) mg/dL POC ABG pH (7.35-7.45) POC ABG pCO2 (35-45) POC ABG pO2 (80-105) POC Glucose 159 H 126 H (70-105) Lactic Acid 20.20 H* (0.7-2.0) mmol/L 10/15/16 10/15/16 10/15/16 Range/Units 17:53 18:45 20:03 Haptoglobin (43-212) mg/dL POC ABG pH (7.35-7.45) POC ABG pCO2 (35-45) POC ABG pO2 (80-105) POC Glucose 143 H 66 L (70-105) Lactic Acid 21.40 H* (0.7-2.0) mmol/L 10/15/16 10/16/16 10/16/16 Range/Units 22:59 00:06 01:03 Haptoglobin (43-212) mg/dL POC ABG pH (7.35-7.45) POC ABG pCO2 (35-45) POC ABG pO2 (80-105) POC Glucose 53 L 126 H 107 H (70-105) Lactic Acid (0.7-2.0) mmol/L 10/16/16 10/16/16 10/16/16 Range/Units 03:55 04:00 04:03 Haptoglobin (43-212) mg/dL POC ABG pH (7.35-7.45) POC ABG pCO2 (35-45) POC ABG pO2 (80-105) POC Glucose 260 H 120 H (70-105) Lactic Acid 18.00 H* (0.7-2.0) mmol/L 10/16/16 10/16/16 Range/Units 07:58 08:34 Haptoglobin (43-212) mg/dL POC ABG pH 7.527 H (7.35-7.45) POC ABG pCO2 32.9 L (35-45) POC ABG pO2 119 H (80-105) POC Glucose 66 L (70-105) Lactic Acid (0.7-2.0) mmol/L Microbiology 10/14/16 16:15 Peripheral/Venous Blood Culture - Preliminary Beta Hemolytic Strep Group B 10/14/16 15:33 Peripheral/Venous Blood Culture - Preliminary Beta Hemolytic Strep Group B - Imaging and Cardiology Chest x-ray: report reviewed (cardiomegaly; no pulmonary consolidation) CT Scan - head: report reviewed US - abdomen: report reviewed (hepatomegaly; no cholelithiasis) Venous US: report reviewed (no DVTs) Assessment and Plan - Patient Problems (1) Sepsis Current Visit: Yes Status: Acute Qualifiers: Sepsis type: Streptococcus group B Qualified Code(s): A40.1 - Sepsis due to streptococcus, group B Plan to address problem: 1. Concern for toxin-mediated process with Strep bacteremia. Will add Clindamycin to Vancomycin (high goal trough 15-20) and discontinue Zosyn. 2. Endocarditis is also a concern despite TTE showing no vegetations. If repeat cultures remain positive or patient fails to improve, would obtain a JONATHAN. 3. Vascath and PICC were placed while the patient was bacteremic. These may need to be removed if patient fails to improve, but should be removed/ exchanged before discontinuing all antibiotics. 4. Will screen for HIV infection. 5. Uncertain source of bacteremia. (2) Atrial fibrillation Current Visit: Yes Status: Acute Qualifiers: Atrial fibrillation type: A Plan to address problem: 1. On Amiodarone. Question bacteremia and/or endocarditis as a potential etiology.
[2016-10-16] MEDS ORDERED: CORDARONE IV ONE ×2 (09:28→10:00)
[2016-10-16] MEDS ORDERED: D5W IV ONE ×2 (09:28→10:00)
--- NOTE | 2016-10-16 09:38 | Progress Note ---
Assessment and Plan (1) Renal failure Current Visit: Yes Status: Acute Qualifiers: Renal failure chronicity: acute Acute renal failure type: unspecified Chronic kidney disease stage: C Qualified Code(s): N17.9 - Acute kidney failure, unspecified Plan to address problem: no labs available, order stat BMP and CBC HD today after plasmapheresis GN work up is in progress- SPEP, UPEP, Anti-GBM, ANCA, XU, C3 and C4 levels are all pending HIV, Hepatitis C antibody and Hep B surface antigen levels are- nonreactive hematology on board, no schistocytes on the new blood smear, on plasmapheresis per hematology, [id number] is pending Strict I/O monitoring Avoid Nephrotoxic agents Renally dose medications Obtain daily weights (2) Pancytopenia Current Visit: Yes Status: Acute Plan to address problem: 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 Possible Amyloidosis. To begin Plasmapharesis as per Hematology (3) Acute respiratory failure Current Visit: Yes Status: Acute Qualifiers: Respiratory failure complication: hypoxia Qualified Code(s): J96.01 - Acute respiratory failure with hypoxia Plan to address problem: On Bipap as per Pulmonary (4) Metabolic acidosis Current Visit: Yes Status: Acute Plan to address problem: On Sodium Bicarbonate (5) Anemia Current Visit: Yes Status: Acute Qualifiers: Anemia type: unspecified type Iron deficiency anemia type: I Vitamin B12 deficiency anemia type: V Folate deficiency anemia type: F Bone marrow failure anemia type: B Hemolytic anemia type: H Other causes of anemia: O Qualified Code(s): D64.9 - Anemia, unspecified Plan to address problem: S/P receive 2 unit PRBC transfusions on 10/13/16 Hematology on board Subjective Date of service: 10/16/16 Principal diagnosis: Sepsis Syndrome; MAHA; RAJESH; CHF Interval history: patient is on bipap, does not follow answer questions, no family at bedside Objective - Vital Signs Vital signs: Vital Signs - 12hr 10/15/16 10/15/16 10/15/16 21:41 21:51 22:00 Temperature Pulse Rate 77 78 76 Respiratory Rate Blood Pressure 113/62 99/58 95/58 O2 Sat by Pulse 100 100 100 Oximetry 10/15/16 10/15/16 10/15/16 22:11 22:21 22:30 Temperature Pulse Rate 78 77 77 Respiratory Rate Blood Pressure 95/58 94/63 106/65 O2 Sat by Pulse 99 99 99 Oximetry 10/15/16 10/15/16 10/15/16 22:41 22:51 23:00 Temperature Pulse Rate 77 76 78 Respiratory Rate Blood Pressure 106/65 99/64 115/65 O2 Sat by Pulse 100 100 100 Oximetry 10/15/16 10/15/16 10/15/16 23:11 23:21 23:30 Temperature Pulse Rate 79 78 79 Respiratory Rate Blood Pressure 115/65 118/75 122/64 O2 Sat by Pulse 100 100 100 Oximetry 10/15/16 10/15/16 10/16/16 23:41 23:51 00:00 Temperature 100.5 F H Pulse Rate 78 77 77 Respiratory 24 Rate Blood Pressure 122/64 122/76 114/66 O2 Sat by Pulse 100 100 100 Oximetry 10/16/16 10/16/16 10/16/16 00:11 00:21 00:30 Temperature Pulse Rate 76 78 77 Respiratory Rate Blood Pressure 114/66 113/65 120/77 O2 Sat by Pulse 100 100 100 Oximetry 10/16/16 10/16/16 10/16/16 00:41 00:51 01:00 Temperature Pulse Rate 77 78 78 Respiratory Rate Blood Pressure 120/77 114/76 119/77 O2 Sat by Pulse 100 100 100 Oximetry 10/16/16 10/16/16 10/16/16 01:11 01:21 01:30 Temperature Pulse Rate 78 76 77 Respiratory Rate Blood Pressure 119/77 114/73 121/74 O2 Sat by Pulse 100 100 100 Oximetry 10/16/16 10/16/16 10/16/16 01:41 01:51 01:59 Temperature Pulse Rate 79 77 77 Respiratory 27 H Rate Blood Pressure 121/74 125/78 125/78 O2 Sat by Pulse 100 100 100 Oximetry 10/16/16 10/16/16 10/16/16 02:00 02:11 02:21 Temperature Pulse Rate 77 78 78 Respiratory Rate Blood Pressure 134/70 134/70 134/72 O2 Sat by Pulse 100 100 100 Oximetry 10/16/16 10/16/16 10/16/16 02:30 02:41 02:51 Temperature Pulse Rate 80 77 78 Respiratory Rate Blood Pressure 126/72 126/72 122/71 O2 Sat by Pulse 100 100 100 Oximetry 10/16/16 10/16/16 10/16/16 03:00 03:11 03:21 Temperature Pulse Rate 78 78 76 Respiratory Rate Blood Pressure 117/66 117/66 124/71 O2 Sat by Pulse 100 100 100 Oximetry 10/16/16 10/16/16 10/16/16 03:30 03:34 03:41 Temperature 99.9 F H Pulse Rate 76 74 Respiratory Rate Blood Pressure 124/65 124/65 O2 Sat by Pulse 100 100 Oximetry 10/16/16 10/16/16 10/16/16 03:51 04:00 04:11 Temperature Pulse Rate 76 77 76 Respiratory 22 Rate Blood Pressure 120/63 121/64 121/64 O2 Sat by Pulse 100 100 100 Oximetry 10/16/16 10/16/16 10/16/16 04:21 04:31 04:41 Temperature Pulse Rate 75 79 70 Respiratory Rate Blood Pressure 124/72 124/72 103/69 O2 Sat by Pulse 100 97 100 Oximetry 10/16/16 10/16/16 10/16/16 04:51 05:00 05:11 Temperature Pulse Rate 74 77 75 Respiratory Rate Blood Pressure 103/66 129/72 129/72 O2 Sat by Pulse 93 84 88 Oximetry 10/16/16 10/16/16 10/16/16 05:21 05:30 05:41 Temperature Pulse Rate 75 77 76 Respiratory Rate Blood Pressure 133/81 127/94 133/81 O2 Sat by Pulse 100 94 96 Oximetry 10/16/16 10/16/16 10/16/16 05:51 06:00 08:00 Temperature 98.2 F Pulse Rate 77 79 Respiratory Rate Blood Pressure 132/84 132/84 O2 Sat by Pulse 95 98 Oximetry 10/16/16 08:34 Temperature Pulse Rate 127 H Respiratory 29 H Rate Blood Pressure 115/89 O2 Sat by Pulse 97 Oximetry - General Appearance General appearance: moderate distress EENT: ATNC, PERRL, mucous membranes dry Neck: no JVD, no carotid bruit Respiratory: Present: Decreased Breath Sounds Cardiology: irregular, tachycardia Gastrointestinal: normoactive bowel sounds, no tenderness, no distended Integumentary: no rash Neurologic: other (does not follow commands) Musculoskeletal: other (1-2+pitting edema in BLE) Psychiatric: other (does not answer questions) - Lab 10/15/16 05:35 10/15/16 05:35 Most recent lab results Calcium 7.7 mg/dL (8.4-10.2) L 10/15/16 05:35 Phosphorus 10.10 mg/dL (2.5-4.5) H D 10/15/16 05:35
[2016-10-16] MEDS: SODIUM BICARBONATE PO SCH ×2 (10:00→21:04)
[2016-10-16] MEDS ORDERED: VANCOMYCIN PHARMACY TO DOSE IV SCH (10:10)
[2016-10-16 11:37] LABS: Hematocrit 22.3 % (35.5-45.6); Mean Corpuscular HGB Conc 31 % (32-34); Mean Corpuscular Hemoglobin 30 pg (28-32); Mean Corpuscular Volume 97 fl (84-94)
[2016-10-16 11:38] LABS: Platelet Count 42 K/mm3 (140-440); Red Cell Distribution Width 21.2 % (13.2-15.2); White Blood Count 25.8 K/mm3 (4.5-11.0)
[2016-10-16 11:55] LABS: BUN/Creatinine Ratio 9.83; Calcium 7.1 mg/dL (8.4-10.2); Chloride 81.7 mmol/L (98-107); Phosphorous 9.1 mg/dL (2.5-4.5)
[2016-10-16] MEDS: CLEOCIN 900 MG/50 mL 900 MG/50 ML BAG IV SCH ×2 (12:00→20:42)
--- NOTE | 2016-10-16 12:06 | Progress Note ---
Assessment and Plan 61 male: 1. Severe cardiomyopathy (unclear etiology) 2. Atrial fibrillation with variable ventricular response 3. Acute metabolic encephalopathy 4. Acute kidney injury 5. Profound metabolic acidemia/lactic acidosis 6. Acute respiratory failure 7. Pancytopenia Rec: Discussed with care team at length. Started iv amiodorone for rate control (lfts wnl) bp is borderline - add cardizem iv if needed for better rate control Given anemia and thrombocytopenia, would defer systemic anticoagulation for now. Watch volume status closely Poor prognosis. - Patient Problems (1) Anemia Current Visit: Yes Status: Acute Qualifiers: Anemia type: unspecified type Iron deficiency anemia type: I Vitamin B12 deficiency anemia type: V Folate deficiency anemia type: F Bone marrow failure anemia type: B Hemolytic anemia type: H Other causes of anemia: O Qualified Code(s): D64.9 - Anemia, unspecified (2) Edema Current Visit: Yes Status: Acute Qualifiers: Edema type: unspecified Malnutrition edema type: M Trimester: T Qualified Code(s): R60.9 - Edema, unspecified (3) Hyperkalemia Current Visit: Yes Status: Acute (4) Leucopenia Current Visit: Yes Status: Acute Qualifiers: Leukopenia type: unspecified Neutropenia type: N Qualified Code(s): D72.819 - Decreased white blood cell count, unspecified (5) Renal failure Current Visit: Yes Status: Acute Qualifiers: Renal failure chronicity: acute Acute renal failure type: unspecified Chronic kidney disease stage: C Qualified Code(s): N17.9 - Acute kidney failure, unspecified Subjective Date of service: 10/16/16 Principal diagnosis: Sepsis Syndrome; MAHA; RAJESH; CHF Interval history: Seen with RN at bedside On bipap Objective Vital Signs Temp Pulse Resp BP Pulse Ox 10/16/16 11:09 120 H 39 H 162/97 95 10/16/16 08:34 127 H 29 H 115/89 97 10/16/16 08:00 98.2 F 10/16/16 06:00 79 132/84 98 10/16/16 05:51 77 132/84 95 10/16/16 05:41 76 133/81 96 10/16/16 05:30 77 127/94 94 10/16/16 05:21 75 133/81 100 10/16/16 05:11 75 129/72 88 10/16/16 05:00 77 129/72 84 05 04:51 74 103/66 93 05 04:41 70 103/69 100 05 04:31 79 124/72 97 05 04:21 75 124/72 100 05 04:11 76 121/64 100 05 04:00 77 22 121/64 100 05 03:51 76 120/63 100 05 03:41 74 124/65 100 05 03:34 99.9 F H 10/16/16 03:30 76 124/65 100 05 03:21 76 124/71 100 05 03:11 78 117/66 100 05 03:00 78 117/66 100 05 02:51 78 122/71 100 10/16/16 02:41 77 126/72 100 05 02:30 80 126/72 100 05 02:21 78 134/72 100 05 02:11 78 134/70 100 05 02:00 77 134/70 100 05 01:59 77 27 H 125/78 100 05 01:51 77 125/78 100 05 01:41 79 121/74 100 05 01:30 77 121/74 100 05 01:21 76 114/73 100 05 01:11 78 119/77 100 05 01:00 78 119/77 100 05 00:51 78 114/76 100 05 00:41 77 120/77 100 05 00:30 77 120/77 100 05 00:21 78 113/65 100 05 00:11 76 114/66 100 05 00:00 100.5 F H 77 24 114/66 100 0517 23:51 77 122/76 100 05 23:41 78 122/64 100 052017 23:30 79 122/64 100 0520 23:21 78 118/75 100 05 23:11 79 115/65 100 05/20/17 23:00 78 115/65 100 05/20/17 22:51 76 99/64 100 05/20/17 22:41 77 106/65 100 05/20/17 22:30 77 106/65 99 05/20/17 22:21 77 94/63 99 05/20/17 22:11 78 95/58 99 05/20/17 22:00 76 95/58 100 05/20/17 21:51 78 99/58 100 05/20/17 21:41 77 113/62 100 05/20/17 21:30 78 113/62 100 05/20/17 21:21 77 107/64 100 05/20/17 21:11 78 100 05/20/17 21:00 78 110/60 100 05/20/17 20:51 78 110/60 100 05/20/17 20:41 80 121/65 99 05/20/17 20:31 83 141/91 100 05/20/17 20:21 79 108/69 100 05/20/17 20:11 78 101/59 100 05/20/17 20:00 99.2 F 79 21 110/64 98 05/20/17 19:50 78 101/59 100 05/20/17 19:41 77 110/63 100 05/20/17 19:38 79 28 H 103/67 98 05/20/17 19:30 78 103/67 98 05/20/17 19:21 78 110/63 99 05/20/17 19:11 79 104/66 97 05/20/17 19:00 78 104/66 92 05/20/17 18:51 78 107/60 98 05/20/17 18:41 78 106/68 98 05/20/17 18:31 77 106/68 95 05/20/17 18:30 78 106/68 96 05/20/17 18:21 78 98/60 93 05/20/17 18:11 77 106/77 05/20/17 18:00 79 106/77 97 05/20/17 17:51 77 97/57 96 05/20/17 17:41 77 88/57 91 05/20/17 17:30 77 88/57 05/20/17 17:21 76 109/70 86 05/20/17 17:11 77 105/64 94 05/20/17 17:00 76 105/64 95 10/15/16 16:51 77 94/57 93 10/15/16 16:41 78 110/68 94 10/15/16 16:40 78 34 H 110/68 100 10/15/16 16:30 78 110/68 96 10/15/16 16:21 75 110/62 10/15/16 16:11 76 105/64 76 L 10/15/16 16:00 98.9 F 76 105/64 76 L 10/15/16 15:51 74 100/58 78 L 10/15/16 15:41 75 101/58 82 L 10/15/16 15:30 75 101/58 94 10/15/16 15:21 75 105/59 82 L 10/15/16 15:11 75 110/76 74 L 10/15/16 15:00 76 107/59 74 L 10/15/16 14:51 76 106/71 87 10/15/16 14:41 76 111/71 82 L 10/15/16 14:30 76 110/76 82 L 10/15/16 14:21 76 111/71 86 10/15/16 14:11 76 122/82 91 10/15/16 14:00 76 122/82 91 10/15/16 13:51 77 116/82 86 10/15/16 13:41 78 124/80 82 L 10/15/16 13:30 79 124/80 85 10/15/16 13:21 80 128/92 89 10/15/16 13:11 84 124/82 86 10/15/16 13:00 86 124/82 83 L 10/15/16 12:51 85 116/82 85 10/15/16 12:41 77 108/65 93 10/15/16 12:30 75 108/65 10/15/16 12:21 76 118/64 10/15/16 12:11 77 132/73 - Physical Examination Neck: Positive: neck supple, trachea midline - Labs and Meds CBC 10/16/16 Range/Units 11:15 WBC 25.8 H (4.5-11.0) K/mm3 RBC 2.30 L (3.65-5.03) M/mm3 Hgb 7.0 L (11.8-15.2) gm/dl Hct 22.3 L (35.5-45.6) % Plt Count 42 L (140-440) K/mm3 Comprehensive Metabolic Panel 10/16/16 Range/Units 11:15 Sodium 142 (137-145) mmol/L Potassium 5.0 (3.6-5.0) mmol/L Chloride 81.7 L (98-107) mmol/L BUN 61 H (9-20) mg/dL Creatinine 6.2 H (0.8-1.5) mg/dL Glucose 171 H (75-100) mg/dL Calcium 7.1 L (8.4-10.2) mg/dL
[2016-10-16 12:45] LABS: Basophils % (Manual) 0 % (0.0-1.8); Blastocytes % (Manual) 0 %; Eosinophils % (Manual) 0 % (0.0-4.3)
[2016-10-16 12:51] LABS: Anisocytosis 1+; Microcytosis Few; Ovalocytes 1+; Poikilocytosis 1+
[2016-10-16 12:52] LABS: Acanthocytes Rare; Burr Cells Few; Diff Status Complete; Elliptocytes Few; Helmet Cells Few; Platelet Estimate Appears Decreased
--- NOTE | 2016-10-16 13:52 | Progress Note ---
Assessment and Plan (1) Acute respiratory failure Current Visit: Yes Status: Acute Qualifiers: Respiratory failure complication: R Plan to address problem: - intubated at bedside - aspiration precautions - intubate if decompensation - wean FiO2 to keep sats > 92% (2) RAJESH (acute kidney injury) Current Visit: Yes Status: Acute Plan to address problem: - suspect TTP (? Amyloidosis) - s/p dialysis - plasmapheresis ongoing - correct electrolytes - avoid nephrotoxins - per nephrology otherwise (3) Metabolic acidosis Current Visit: Yes Status: Acute Plan to address problem: - Lactic Acidosis component - sepsis may be driving force - bicarbonate replacement ongoing - HD/UF per nephrology prescription - empiric broad spectrum AB's (4) CHF (congestive heart failure) Current Visit: Yes Status: Acute Qualifiers: Congestive heart failure type: C Congestive heart failure chronicity: C Plan to address problem: - ECHO consistent with possible infiltrating disease - cardiology consulted - EF 30& - per cardiology otherwise but acutely needs volume resuscitation - will transduce CVP's to guide volume (5) Pancytopenia Current Visit: Yes Status: Acute Plan to address problem: - hematology on case - for plasmapheresis - may need bone marrow evaluation (6) Acute encephalopathy Current Visit: Yes Status: Acute Plan to address problem: - CT brain negative - likely toxic-metabolic encephalopathy (7) Hypoglycemia Current Visit: Yes Status: Acute Plan to address problem: - on D10W with bicarbonate drip - will [place]uced[place] CT once more stable re: ? insulinoma - suspect sepsis related - will continue systemic steroids (8) Sepsis syndrome Current Visit: Yes Status: Acute Plan to address problem: - on broad spectrum AB's coverage - CRP and lactate remarkable and will be trended - ID consulted (9) Discharge planning issues Current Visit: Yes Status: Acute Plan to address problem: - he remains critically ill on life sustaining interventions including MVS and at risk for further deterioration including - care plan discussed at length with in room ...40' CCT Subjective Date of service: 10/16/16 Principal diagnosis: Sepsis Syndrome; MAHA; RAJESH; CHF Interval history: Seen and examined at bedside; 24 hour events reviewed; nursing and respiratory care staff consulted; no adverse overnight events reported to me; intubated at bedside; AMS is persistent; no gross seizure activity; remains with pancytopenia and RAJESH but thankfully tolerating dialysis and plasmapheresis Objective Vital Signs - 12hr 10/16/16 10/16/16 10/16/16 01:59 02:00 02:11 Temperature Pulse Rate 77 77 78 Respiratory 27 H Rate Blood Pressure 125/78 134/70 134/70 O2 Sat by Pulse 100 100 100 Oximetry 10/16/16 10/16/16 10/16/16 02:21 02:30 02:41 Temperature Pulse Rate 78 80 77 Respiratory Rate Blood Pressure 134/72 126/72 126/72 O2 Sat by Pulse 100 100 100 Oximetry 10/16/16 10/16/16 10/16/16 02:51 03:00 03:11 Temperature Pulse Rate 78 78 78 Respiratory Rate Blood Pressure 122/71 117/66 117/66 O2 Sat by Pulse 100 100 100 Oximetry 10/16/16 10/16/16 10/16/16 03:21 03:30 03:34 Temperature 99.9 F H Pulse Rate 76 76 Respiratory Rate Blood Pressure 124/71 124/65 O2 Sat by Pulse 100 100 Oximetry 10/16/16 10/16/16 10/16/16 03:41 03:51 04:00 Temperature Pulse Rate 74 76 77 Respiratory 22 Rate Blood Pressure 124/65 120/63 121/64 O2 Sat by Pulse 100 100 100 Oximetry 10/16/16 10/16/16 10/16/16 04:11 04:21 04:31 Temperature Pulse Rate 76 75 79 Respiratory Rate Blood Pressure 121/64 124/72 124/72 O2 Sat by Pulse 100 100 97 Oximetry 10/16/16 10/16/16 10/16/16 04:41 04:51 05:00 Temperature Pulse Rate 70 74 77 Respiratory Rate Blood Pressure 103/69 103/66 129/72 O2 Sat by Pulse 100 93 84 Oximetry 10/16/16 10/16/16 10/16/16 05:11 05:21 05:30 Temperature Pulse Rate 75 75 77 Respiratory Rate Blood Pressure 129/72 133/81 127/94 O2 Sat by Pulse 88 100 94 Oximetry 10/16/16 10/16/16 10/16/16 05:41 05:51 06:00 Temperature Pulse Rate 76 77 79 Respiratory Rate Blood Pressure 133/81 132/84 132/84 O2 Sat by Pulse 96 95 98 Oximetry 10/16/16 10/16/16 10/16/16 08:00 08:34 11:09 Temperature 98.2 F Pulse Rate 127 H 120 H Respiratory 29 H 39 H Rate Blood Pressure 115/89 162/97 O2 Sat by Pulse 97 95 Oximetry 10/16/16 12:00 Temperature 98.0 F Pulse Rate Respiratory Rate Blood Pressure O2 Sat by Pulse Oximetry Constitutional: lethargic, other (good cough reflex on trach suction post intubation) Eyes: non-icteric ENT: oropharynx dry Neck: supple, no lymphadenopathy Effort: very labored Ascultation: Bilateral: diminished breath sounds, rales Cardiovascular: irregular rhythm Gastrointestinal: normoactive bowel sounds, soft, non-tender, non-distended Integumentary: normal Extremities: no cyanosis, pulses normal, no ischemia or petechiae, edema Neurologic: non-focal exam (grossly) Psychiatric: other (unable to assess) CBC and BMP: 10/24/16 07:00 10/24/16 07:00 ABG, PT/INR, D-dimer: ABG POC ABG pH 7.527 (7.35-7.45) H 10/16/16 08:34 POC ABG pCO2 32.9 (35-45) L 10/16/16 08:34 POC ABG pO2 119 (80-105) H 10/16/16 08:34 POC ABG HCO3 27.3 10/16/16 08:34 POC ABG Total CO2 28 10/16/16 08:34 POC ABG O2 Sat 99 10/16/16 08:34 PT/INR, D-dimer PT 28.9 Sec. (12.2-14.9) H 10/14/16 21:25 INR 2.71 (0.87-1.13) H 10/14/16 21:25 Abnormal lab findings: Abnormal Labs 10/13/16 10/13/16 10/13/16 21:40 22:05 23:18 WBC RBC Hgb Hct MCV MCHC RDW Plt Count Seg Neuts % (Manual) Lymphocytes % (Manual) Nucleated RBC % Seg Neutrophils # Man Lymphocytes # (Manual) Haptoglobin PT INR Fibrinogen POC ABG pH POC ABG pCO2 POC ABG pO2 Sodium Potassium Chloride Carbon Dioxide BUN Creatinine Glucose POC Glucose 52 L 43 L 113 H Lactic Acid Uric Acid Calcium Phosphorus Iron TIBC Ferritin Total Bilirubin Direct Bilirubin Lactate Dehydrogenase C-Reactive Protein 10/14/16 10/14/16 10/14/16 03:00 03:00 03:00 WBC RBC Hgb Hct MCV MCHC RDW Plt Count Seg Neuts % (Manual) Lymphocytes % (Manual) Nucleated RBC % Seg Neutrophils # Man Lymphocytes # (Manual) Haptoglobin PT INR Fibrinogen POC ABG pH POC ABG pCO2 POC ABG pO2 Sodium Potassium Chloride Carbon Dioxide 18 L BUN 73 H Creatinine 9.8 H Glucose 59 L POC Glucose Lactic Acid Uric Acid 8.0 H Calcium 8.2 L Phosphorus 6.60 H Iron 13 L TIBC 160 L Ferritin Total Bilirubin Direct Bilirubin Lactate Dehydrogenase 406 H C-Reactive Protein 10/14/16 10/14/16 10/14/16 04:34 05:27 06:29 WBC 1.3 L* RBC 2.33 L Hgb 7.3 L Hct 21.7 L MCV MCHC RDW 19.8 H Plt Count 99 L Seg Neuts % (Manual) Lymphocytes % (Manual) 3.0 L Nucleated RBC % Seg Neutrophils # Man 0.9 L Lymphocytes # (Manual) 0.0 L Haptoglobin PT INR Fibrinogen POC ABG pH POC ABG pCO2 POC ABG pO2 Sodium Potassium Chloride Carbon Dioxide BUN Creatinine Glucose POC Glucose < 40 L 63 L Lactic Acid Uric Acid Calcium Phosphorus Iron TIBC Ferritin Total Bilirubin Direct Bilirubin Lactate Dehydrogenase C-Reactive Protein 10/14/16 10/14/16 10/14/16 07:34 09:58 09:58 WBC RBC Hgb Hct MCV MCHC RDW Plt Count Seg Neuts % (Manual) Lymphocytes % (Manual) Nucleated RBC % Seg Neutrophils # Man Lymphocytes # (Manual) Haptoglobin 218 H PT INR Fibrinogen 557 H POC ABG pH POC ABG pCO2 POC ABG pO2 Sodium Potassium Chloride Carbon Dioxide BUN Creatinine Glucose POC Glucose < 40 L Lactic Acid Uric Acid Calcium Phosphorus Iron TIBC Ferritin Total Bilirubin Direct Bilirubin Lactate Dehydrogenase C-Reactive Protein 10/14/16 10/14/16 10/14/16 09:58 10:57 11:15 WBC RBC Hgb Hct MCV MCHC RDW Plt Count Seg Neuts % (Manual) Lymphocytes % (Manual) Nucleated RBC % Seg Neutrophils # Man Lymphocytes # (Manual) Haptoglobin PT INR Fibrinogen POC ABG pH POC ABG pCO2 POC ABG pO2 Sodium Potassium Chloride Carbon Dioxide BUN Creatinine Glucose POC Glucose < 40 L < 40 L Lactic Acid Uric Acid Calcium Phosphorus Iron TIBC Ferritin Total Bilirubin 1.30 H Direct Bilirubin 1.1 H Lactate Dehydrogenase C-Reactive Protein 10/14/16 10/14/16 10/14/16 12:52 12:52 13:17 WBC RBC Hgb Hct MCV MCHC RDW Plt Count Seg Neuts % (Manual) Lymphocytes % (Manual) Nucleated RBC % Seg Neutrophils # Man Lymphocytes # (Manual) Haptoglobin PT INR Fibrinogen POC ABG pH POC ABG pCO2 POC ABG pO2 Sodium Potassium Chloride Carbon Dioxide BUN Creatinine Glucose POC Glucose < 40 L Lactic Acid 9.60 H* Uric Acid Calcium Phosphorus Iron TIBC Ferritin Total Bilirubin Direct Bilirubin Lactate Dehydrogenase C-Reactive Protein 40.40 H 10/14/16 10/14/16 10/14/16 14:12 15:02 15:33 WBC RBC Hgb Hct MCV MCHC RDW Plt Count Seg Neuts % (Manual) Lymphocytes % (Manual) Nucleated RBC % Seg Neutrophils # Man Lymphocytes # (Manual) Haptoglobin PT INR Fibrinogen POC ABG pH POC ABG pCO2 POC ABG pO2 Sodium Potassium Chloride Carbon Dioxide BUN Creatinine Glucose 19 L* POC Glucose < 40 L < 40 L Lactic Acid Uric Acid Calcium Phosphorus Iron TIBC Ferritin Total Bilirubin Direct Bilirubin Lactate Dehydrogenase C-Reactive Protein 10/14/16 10/14/16 10/14/16 15:33 17:14 18:03 WBC RBC Hgb Hct MCV MCHC RDW Plt Count Seg Neuts % (Manual) Lymphocytes % (Manual) Nucleated RBC % Seg Neutrophils # Man Lymphocytes # (Manual) Haptoglobin PT INR Fibrinogen POC ABG pH POC ABG pCO2 POC ABG pO2 Sodium Potassium Chloride Carbon Dioxide BUN Creatinine Glucose POC Glucose < 40 L 57 L Lactic Acid 11.60 H* Uric Acid Calcium Phosphorus Iron TIBC Ferritin Total Bilirubin Direct Bilirubin Lactate Dehydrogenase C-Reactive Protein 10/14/16 10/15/16 10/15/16 21:25 05:32 05:35 WBC RBC Hgb Hct MCV MCHC RDW Plt Count Seg Neuts % (Manual) Lymphocytes % (Manual) Nucleated RBC % Seg Neutrophils # Man Lymphocytes # (Manual) Haptoglobin PT 28.9 H INR 2.71 H Fibrinogen POC ABG pH POC ABG pCO2 POC ABG pO2 Sodium Potassium Chloride Carbon Dioxide BUN Creatinine Glucose POC Glucose < 40 L Lactic Acid Uric Acid Calcium Phosphorus Iron TIBC Ferritin Total Bilirubin Direct Bilirubin Lactate Dehydrogenase 3871 H C-Reactive Protein 10/15/16 10/15/16 10/15/16 05:35 05:35 05:35 WBC RBC 2.62 L Hgb 8.1 L Hct 25.8 L MCV 98 H D MCHC 31 L RDW 21.2 H Plt Count 61 L Seg Neuts % (Manual) 27.0 L Lymphocytes % (Manual) 10.0 L Nucleated RBC % 2.0 H Seg Neutrophils # Man Lymphocytes # (Manual) 0.8 L Haptoglobin PT INR Fibrinogen POC ABG pH POC ABG pCO2 POC ABG pO2 Sodium 136 L Potassium 5.3 H D Chloride 91.4 L Carbon Dioxide 6 L* D BUN 57 H Creatinine 7.1 H Glucose 11 L* POC Glucose Lactic Acid Uric Acid Calcium 7.7 L Phosphorus 10.10 H D Iron TIBC 166 L Ferritin 9562.0 H Total Bilirubin Direct Bilirubin Lactate Dehydrogenase C-Reactive Protein 10/15/16 10/15/16 10/15/16 05:35 05:51 06:22 WBC RBC Hgb Hct MCV MCHC RDW Plt Count Seg Neuts % (Manual) Lymphocytes % (Manual) Nucleated RBC % Seg Neutrophils # Man Lymphocytes # (Manual) Haptoglobin PT INR Fibrinogen POC ABG pH 7.189 L POC ABG pCO2 28.9 L POC ABG pO2 Sodium Potassium Chloride Carbon Dioxide BUN Creatinine Glucose POC Glucose 59 L Lactic Acid 13.60 H* Uric Acid Calcium Phosphorus Iron TIBC Ferritin Total Bilirubin Direct Bilirubin Lactate Dehydrogenase C-Reactive Protein 10/15/16 10/15/16 10/15/16 06:52 08:00 09:57 WBC RBC Hgb Hct MCV MCHC RDW Plt Count Seg Neuts % (Manual) Lymphocytes % (Manual) Nucleated RBC % Seg Neutrophils # Man Lymphocytes # (Manual) Haptoglobin PT INR Fibrinogen POC ABG pH POC ABG pCO2 POC ABG pO2 Sodium Potassium Chloride Carbon Dioxide BUN Creatinine Glucose POC Glucose 111 H 63 L 143 H Lactic Acid Uric Acid Calcium Phosphorus Iron TIBC Ferritin Total Bilirubin Direct Bilirubin Lactate Dehydrogenase C-Reactive Protein 10/15/16 10/15/16 10/15/16 11:42 12:00 13:00 WBC RBC Hgb Hct MCV MCHC RDW Plt Count Seg Neuts % (Manual) Lymphocytes % (Manual) Nucleated RBC % Seg Neutrophils # Man Lymphocytes # (Manual) Haptoglobin PT INR Fibrinogen POC ABG pH POC ABG pCO2 POC ABG pO2 Sodium Potassium Chloride Carbon Dioxide BUN Creatinine Glucose POC Glucose 203 H 136 H Lactic Acid 16.30 H* Uric Acid Calcium Phosphorus Iron TIBC Ferritin Total Bilirubin Direct Bilirubin Lactate Dehydrogenase C-Reactive Protein 10/15/16 10/15/16 10/15/16 14:06 15:15 16:23 WBC RBC Hgb Hct MCV MCHC RDW Plt Count Seg Neuts % (Manual) Lymphocytes % (Manual) Nucleated RBC % Seg Neutrophils # Man Lymphocytes # (Manual) Haptoglobin PT INR Fibrinogen POC ABG pH POC ABG pCO2 POC ABG pO2 Sodium Potassium Chloride Carbon Dioxide BUN Creatinine Glucose POC Glucose 132 H 64 L Lactic Acid 20.40 H* Uric Acid Calcium Phosphorus Iron TIBC Ferritin Total Bilirubin Direct Bilirubin Lactate Dehydrogenase C-Reactive Protein 10/15/16 10/15/16 10/15/16 16:40 17:00 17:10 WBC RBC Hgb Hct MCV MCHC RDW Plt Count Seg Neuts % (Manual) Lymphocytes % (Manual) Nucleated RBC % Seg Neutrophils # Man Lymphocytes # (Manual) Haptoglobin PT INR Fibrinogen POC ABG pH 7.323 L POC ABG pCO2 25.8 L POC ABG pO2 135 H Sodium Potassium Chloride Carbon Dioxide BUN Creatinine Glucose POC Glucose 159 H Lactic Acid 20.20 H* Uric Acid Calcium Phosphorus Iron TIBC Ferritin Total Bilirubin Direct Bilirubin Lactate Dehydrogenase C-Reactive Protein 10/15/16 10/15/16 10/15/16 17:46 17:53 18:45 WBC RBC Hgb Hct MCV MCHC RDW Plt Count Seg Neuts % (Manual) Lymphocytes % (Manual) Nucleated RBC % Seg Neutrophils # Man Lymphocytes # (Manual) Haptoglobin PT INR Fibrinogen POC ABG pH POC ABG pCO2 POC ABG pO2 Sodium Potassium Chloride Carbon Dioxide BUN Creatinine Glucose POC Glucose 126 H 143 H Lactic Acid 21.40 H* Uric Acid Calcium Phosphorus Iron TIBC Ferritin Total Bilirubin Direct Bilirubin Lactate Dehydrogenase C-Reactive Protein 10/15/16 10/15/16 10/16/16 20:03 22:59 00:06 WBC RBC Hgb Hct MCV MCHC RDW Plt Count Seg Neuts % (Manual) Lymphocytes % (Manual) Nucleated RBC % Seg Neutrophils # Man Lymphocytes # (Manual) Haptoglobin PT INR Fibrinogen POC ABG pH POC ABG pCO2 POC ABG pO2 Sodium Potassium Chloride Carbon Dioxide BUN Creatinine Glucose POC Glucose 66 L 53 L 126 H Lactic Acid Uric Acid Calcium Phosphorus Iron TIBC Ferritin Total Bilirubin Direct Bilirubin Lactate Dehydrogenase C-Reactive Protein 10/16/16 10/16/16 10/16/16 01:03 03:55 04:00 WBC RBC Hgb Hct MCV MCHC RDW Plt Count Seg Neuts % (Manual) Lymphocytes % (Manual) Nucleated RBC % Seg Neutrophils # Man Lymphocytes # (Manual) Haptoglobin PT INR Fibrinogen POC ABG pH POC ABG pCO2 POC ABG pO2 Sodium Potassium Chloride Carbon Dioxide BUN Creatinine Glucose POC Glucose 107 H 260 H Lactic Acid 18.00 H* Uric Acid Calcium Phosphorus Iron TIBC Ferritin Total Bilirubin Direct Bilirubin Lactate Dehydrogenase C-Reactive Protein 10/16/16 10/16/16 10/16/16 04:03 07:58 08:34 WBC RBC Hgb Hct MCV MCHC RDW Plt Count Seg Neuts % (Manual) Lymphocytes % (Manual) Nucleated RBC % Seg Neutrophils # Man Lymphocytes # (Manual) Haptoglobin PT INR Fibrinogen POC ABG pH 7.527 H POC ABG pCO2 32.9 L POC ABG pO2 119 H Sodium Potassium Chloride Carbon Dioxide BUN Creatinine Glucose POC Glucose 120 H 66 L Lactic Acid Uric Acid Calcium Phosphorus Iron TIBC Ferritin Total Bilirubin Direct Bilirubin Lactate Dehydrogenase C-Reactive Protein 10/16/16 10/16/16 10/16/16 09:13 10:06 10:57 WBC RBC Hgb Hct MCV MCHC RDW Plt Count Seg Neuts % (Manual) Lymphocytes % (Manual) Nucleated RBC % Seg Neutrophils # Man Lymphocytes # (Manual) Haptoglobin PT INR Fibrinogen POC ABG pH POC ABG pCO2 POC ABG pO2 Sodium Potassium Chloride Carbon Dioxide BUN Creatinine Glucose POC Glucose 147 H 137 H 140 H Lactic Acid Uric Acid Calcium Phosphorus Iron TIBC Ferritin Total Bilirubin Direct Bilirubin Lactate Dehydrogenase C-Reactive Protein 10/16/16 10/16/16 10/16/16 11:15 11:15 11:15 WBC 25.8 H RBC 2.30 L Hgb 7.0 L Hct 22.3 L MCV 97 H MCHC 31 L RDW 21.2 H Plt Count 42 L Seg Neuts % (Manual) Lymphocytes % (Manual) 3.0 L Nucleated RBC % 2.0 H Seg Neutrophils # Man 11.1 H Lymphocytes # (Manual) 0.8 L Haptoglobin PT INR Fibrinogen POC ABG pH POC ABG pCO2 POC ABG pO2 Sodium Potassium Chloride 81.7 L Carbon Dioxide 13 L D BUN 61 H Creatinine 6.2 H Glucose 171 H POC Glucose Lactic Acid 22.70 H* Uric Acid Calcium 7.1 L Phosphorus 9.10 H Iron TIBC Ferritin Total Bilirubin Direct Bilirubin Lactate Dehydrogenase C-Reactive Protein Chest x-ray: image reviewed
[2016-10-16] MEDS ORDERED: VERSED IV ONE (16:33)
[2016-10-16] MEDS ORDERED: DIPRIVAN 10 MG/ML 1,000 MG/100 ML BOTTLE IV ONE (16:33)
[2016-10-16] MEDS: LEVOPHED DRIP 4 MG/NS 250 ML 4 MG/250 ML BAG IV SCH (17:00)
[2016-10-16] MEDS ORDERED: D10W IV SCH (18:30)
[2016-10-16] MEDS ORDERED: NACL IV SCH (18:30)
[2016-10-16] MEDS ORDERED: ARTIFICIAL TEARS OPHTH OINT OU PRN (18:33)
[2016-10-16] MEDS ORDERED: VASELINE LIP THERAPY TP PRN (18:33)
[2016-10-16 18:34] LABS: ISTAT Base Excess -4; ISTAT HCO3 20.7; ISTAT PCO2 35.5 (35-45); ISTAT PH 7.374 (7.35-7.45); ISTAT PO2 489 (80-105); ISTAT SO2 100; ISTAT TCO2 22
--- NOTE | 2016-10-16 18:37 | XRay Report ---
FINAL REPORT EXAM: XR CHEST 1V AP HISTORY: ET tube placement TECHNIQUE: Frontal chest radiograph. PRIORS: None. FINDINGS: An endotracheal tube is present with the tip projecting in the upper thoracic trachea. A right upper extremity PICC is present with the tip lying in the lower SVC. Right sided tunneled IJ catheter is present with the tip lying deep in the right atrium. The cardiomediastinal silhouette is normal. No focal consolidation. No pleural effusion. No pneumothorax. No acute osseous abnormality. Subcutaneous emphysema is seen over the lower neck. There is a small amount of pneumomediastinum. IMPRESSION: 1. Endotracheal tube tip projecting in the upper thoracic trachea. 2. Small amount of pneumomediastinum and subcutaneous emphysema over the lower neck. Findings were discussed with Dr. Donnelly at 3:31 p.m. [facility] on 10/16/2016.
[2016-10-16] MEDS ORDERED: VERSED IV NR (19:00)
[2016-10-16] MEDS ORDERED: fentaNYL DRIP Premix 2,000 MCG/100 ML BAG IV SCH (19:00)
[2016-10-16] MEDS: PEPCID IV SCH (20:43)
[2016-10-16 20:47] LABS: PTT-LA 55 sec (<=40)
[2016-10-16 20:47] LABS: Abnormal Protein Band 1 1.4 g/dL; Albumin 2.2 g/dL (3.8-4.8); Gamma Globulin 1.7 g/dL (0.8-1.7)
--- NOTE | 2016-10-16 22:07 | Consultation ---
History of Present Illness - Reason for Consult Consult date: 10/16/16 - History of Present Illness Patient seen/examined, Plasma exchange, in progress. was not around. He will complete total of 5treatments. Past History Past Medical History: hypertension, other (Had shingles in November 27-) Past Surgical History: No surgical history Social history: , full code, other (Patienti s and lives with his ). denies: smoking, alcohol abuse, prescription drug abuse, IV drug use Family history: no significant family history Medications and Allergies Allergies Allergy/AdvReac Type Severity Reaction Status Date / Time No Known Allergies Allergy Unverified 10/13/16 09:41 Home Medications Medication Instructions Recorded Confirmed Last Taken Type Naproxen Sodium [Aleve TAB] 2 tab PO Q8H PRN 10/13/16 10/13/16 10/12/16 14:00 History Active Meds: Active Medications Acetaminophen (Tylenol) 650 mg PO Q6H PRN PRN Reason: pain Last Admin: 10/14/16 21:13 Dose: 650 mg Acetaminophen (Tylenol) 1,000 mg DC Q4H PRN PRN Reason: Pain, Mild (1-3) Last Admin: 10/16/16 09:00 Dose: 1,000 mg Dexamethasone (Decadron) 4 mg IV Q8H EDWINA Last Admin: 10/16/16 20:43 Dose: 4 mg Dextrose (D50w (25gm)) 25 ml IV PRN PRN PRN Reason: Hypoglycemia Last Admin: 10/16/16 21:26 Dose: 25 ml Diphenhydramine HCl (Benadryl) 50 mg IV Q6H PRN PRN Reason: Itching Last Admin: 10/16/16 09:02 Dose: 50 mg Famotidine (Pepcid) 20 mg IV Q24H EDWINA Last Admin: 10/16/16 20:43 Dose: 20 mg Haloperidol Lactate (Haldol) 5 mg IM Q6H PRN PRN Reason: Agitation Last Admin: 10/14/16 21:11 Dose: 5 mg Heparin Sodium (Porcine) (Heparin) 10,000 unit IV ROD PRN PRN Reason: for plasmapheresis- vascath Hydrophilic Ointment (Vaseline Lip Therapy) 1 applic TP Q2H PRN PRN Reason: Dry Lips Sodium Chloride (Nacl 0.9%) 100 mls @ 999 mls/hr IV ROD PRN PRN Reason: Hypotension Sodium Chloride (Nacl 0.9%) 100 mls @ 999 mls/hr IV ROD PRN PRN Reason: Hypotension Sodium Chloride (Nacl 0.9%) 100 mls @ 999 mls/hr IV ROD PRN PRN Reason: Hypotension Amiodarone HCl 900 mg/ (Dextrose) 500 mls @ 33.33 mls/hr IV DIRECT EDWINA; 1 MG /MIN PRN Reason: Protocol Last Admin: 10/16/16 12:16 Dose: 0.5 mg/min, 16.66 mls/hr Clindamycin HCl (Cleocin 900 Mg/50 Ml) 900 mg in 50 mls @ 100 mls/hr IV Q8H EDWINA PRN Reason: Protocol Last Admin: 10/16/16 20:42 Dose: 100 mls/hr Norepinephrine (Levophed Drip 4 Mg/Ns 250 Ml) 4 mg in 250 mls @ 7.5 mls/hr IV TITR EDWINA; 2 MCG/MIN PRN Reason: Protocol Last Admin: 10/16/16 17:00 Dose: 2 mcg/min, 7.5 mls/hr Propofol (Diprivan 10 Mg/Ml) 1,000 mg in 100 mls @ 1.827 mls/hr IV TITR EDWINA; 5 MCG/KG/MIN PRN Reason: Protocol Sodium Chloride 76.92 meq/ (Dextrose) 1,019.23 mls @ 75 mls/hr IV DIRECT EDWINA Stop: 10/19/16 08:06 Last Admin: 10/16/16 20:43 Dose: 75 mls/hr Fentanyl Citrate (Fentanyl Drip Premix) 2,000 mcg in 100 mls @ 3.045 mls/hr IV TITR EDWINA; 1 MCG/KG/HR PRN Reason: Protocol Multi-Ingred Cream/Lotion/Oil/Oint (Artificial Tears Ophth Oint) 1 applic OU Q4H PRN PRN Reason: Dry Eye(s) Ondansetron HCl (Zofran) 4 mg IV Q8H PRN PRN Reason: Nausea And Vomiting Sodium Bicarbonate (Sodium Bicarbonate) 650 mg PO BID EDWINA Last Admin: 10/16/16 21:04 Dose: Not Given Vancomycin HCl (Vancomycin Pharmacy To Dose) 1 each IV PKCONSULT EDWINA PRN Reason: Protocol Review of Systems Constitutional: lethargy Cardiovascular: rapid/irregular heart beat, shortness of breath Respiratory: shortness of breath Neurological: confusion Exam - Constitutional Vitals: Temp Pulse Resp BP Pulse Ox 98.3 F 116 H 25 H 91/64 100 10/16/16 16:00 10/16/16 21:30 10/16/16 21:30 10/16/16 21:30 10/16/16 21:30 General appearance: Present: well-nourished - EENT Eyes: Present: PERRL ENT: hearing intact, clear oral mucosa - Neck Neck: Present: supple, normal ROM - Respiratory Respiratory: bilateral: other (on BIPAP.) - Cardiovascular Heart Sounds: Present: S1 & S2. Absent: rub, click - Extremities Extremities: pulses symmetrical, No edema Peripheral Pulses: within normal limits - Abdominal General gastrointestinal: Present: soft, non-tender, non-distended, normal bowel sounds Male genitourinary: Present: deferred - Rectal Rectal Exam: deferred - Integumentary Integumentary: Present: clear, warm, dry - Neurologic Neurologic: moves all extremities Results - Labs CBC & Chem 7: 10/16/16 11:15 10/16/16 11:15 Labs: Abnormal lab results 10/13/16 10/14/16 10/15/16 Range/Units 14:50 03:00 22:59 WBC (4.5-11.0) K/mm3 RBC (3.65-5.03) M/mm3 Hgb (11.8-15.2) gm/dl Hct (35.5-45.6) % MCV (84-94) fl MCHC (32-34) % RDW (13.2-15.2) % Plt Count (140-440) K/mm3 Lymphocytes % (Manual) (13.4-35.0) % Nucleated RBC % (0.0-0.9) % Seg Neutrophils # Man (1.8-7.7) K/mm3 Lymphocytes # (Manual) (1.2-5.4) K/mm3 Lupus Anticoagulant see below H LA PTT Baseline 55 H (<=40) sec POC ABG pH (7.35-7.45) POC ABG pCO2 (35-45) POC ABG pO2 (80-105) Chloride (98-107) mmol/L Carbon Dioxide (22-30) mmol/L BUN (9-20) mg/dL Creatinine (0.8-1.5) mg/dL Glucose (75-100) mg/dL POC Glucose 53 L (70-105) Lactic Acid (0.7-2.0) mmol/L Calcium (8.4-10.2) mg/dL Phosphorus (2.5-4.5) mg/dL Serum Total Protein 5.6 L (6.1-8.1) g/dL Albumin 2.2 L (3.8-4.8) g/dL Yrsou-7-Yuqhitzmg 0.5 H (0.2-0.3) g/dL Abnorm Protein Band 1 1.4 H g/dL PEP Interpretation see below H 10/16/16 10/16/16 10/16/16 Range/Units 00:06 01:03 03:55 WBC (4.5-11.0) K/mm3 RBC (3.65-5.03) M/mm3 Hgb (11.8-15.2) gm/dl Hct (35.5-45.6) % MCV (84-94) fl MCHC (32-34) % RDW (13.2-15.2) % Plt Count (140-440) K/mm3 Lymphocytes % (Manual) (13.4-35.0) % Nucleated RBC % (0.0-0.9) % Seg Neutrophils # Man (1.8-7.7) K/mm3 Lymphocytes # (Manual) (1.2-5.4) K/mm3 Lupus Anticoagulant LA PTT Baseline (<=40) sec POC ABG pH (7.35-7.45) POC ABG pCO2 (35-45) POC ABG pO2 (80-105) Chloride (98-107) mmol/L Carbon Dioxide (22-30) mmol/L BUN (9-20) mg/dL Creatinine (0.8-1.5) mg/dL Glucose (75-100) mg/dL POC Glucose 126 H 107 H (70-105) Lactic Acid 18.00 H* (0.7-2.0) mmol/L Calcium (8.4-10.2) mg/dL Phosphorus (2.5-4.5) mg/dL Serum Total Protein (6.1-8.1) g/dL Albumin (3.8-4.8) g/dL Bppdd-7-Nyhwhcraj (0.2-0.3) g/dL Abnorm Protein Band 1 g/dL PEP Interpretation 10/16/16 10/16/16 10/16/16 Range/Units 04:00 04:03 07:58 WBC (4.5-11.0) K/mm3 RBC (3.65-5.03) M/mm3 Hgb (11.8-15.2) gm/dl Hct (35.5-45.6) % MCV (84-94) fl MCHC (32-34) % RDW (13.2-15.2) % Plt Count (140-440) K/mm3 Lymphocytes % (Manual) (13.4-35.0) % Nucleated RBC % (0.0-0.9) % Seg Neutrophils # Man (1.8-7.7) K/mm3 Lymphocytes # (Manual) (1.2-5.4) K/mm3 Lupus Anticoagulant LA PTT Baseline (<=40) sec POC ABG pH (7.35-7.45) POC ABG pCO2 (35-45) POC ABG pO2 (80-105) Chloride (98-107) mmol/L Carbon Dioxide (22-30) mmol/L BUN (9-20) mg/dL Creatinine (0.8-1.5) mg/dL Glucose (75-100) mg/dL POC Glucose 260 H 120 H 66 L (70-105) Lactic Acid (0.7-2.0) mmol/L Calcium (8.4-10.2) mg/dL Phosphorus (2.5-4.5) mg/dL Serum Total Protein (6.1-8.1) g/dL Albumin (3.8-4.8) g/dL Qkwnz-4-Rbahlrvfi (0.2-0.3) g/dL Abnorm Protein Band 1 g/dL PEP Interpretation 10/16/16 10/16/16 10/16/16 Range/Units 08:34 09:13 10:06 WBC (4.5-11.0) K/mm3 RBC (3.65-5.03) M/mm3 Hgb (11.8-15.2) gm/dl Hct (35.5-45.6) % MCV (84-94) fl MCHC (32-34) % RDW (13.2-15.2) % Plt Count (140-440) K/mm3 Lymphocytes % (Manual) (13.4-35.0) % Nucleated RBC % (0.0-0.9) % Seg Neutrophils # Man (1.8-7.7) K/mm3 Lymphocytes # (Manual) (1.2-5.4) K/mm3 Lupus Anticoagulant LA PTT Baseline (<=40) sec POC ABG pH 7.527 H (7.35-7.45) POC ABG pCO2 32.9 L (35-45) POC ABG pO2 119 H (80-105) Chloride (98-107) mmol/L Carbon Dioxide (22-30) mmol/L BUN (9-20) mg/dL Creatinine (0.8-1.5) mg/dL Glucose (75-100) mg/dL POC Glucose 147 H 137 H (70-105) Lactic Acid (0.7-2.0) mmol/L Calcium (8.4-10.2) mg/dL Phosphorus (2.5-4.5) mg/dL Serum Total Protein (6.1-8.1) g/dL Albumin (3.8-4.8) g/dL Ghuts-0-Viskkemnl (0.2-0.3) g/dL Abnorm Protein Band 1 g/dL PEP Interpretation 10/16/16 10/16/16 10/16/16 Range/Units 10:57 11:15 11:15 WBC (4.5-11.0) K/mm3 RBC (3.65-5.03) M/mm3 Hgb (11.8-15.2) gm/dl Hct (35.5-45.6) % MCV (84-94) fl MCHC (32-34) % RDW (13.2-15.2) % Plt Count (140-440) K/mm3 Lymphocytes % (Manual) (13.4-35.0) % Nucleated RBC % (0.0-0.9) % Seg Neutrophils # Man (1.8-7.7) K/mm3 Lymphocytes # (Manual) (1.2-5.4) K/mm3 Lupus Anticoagulant LA PTT Baseline (<=40) sec POC ABG pH (7.35-7.45) POC ABG pCO2 (35-45) POC ABG pO2 (80-105) Chloride 81.7 L (98-107) mmol/L Carbon Dioxide 13 L D (22-30) mmol/L BUN 61 H (9-20) mg/dL Creatinine 6.2 H (0.8-1.5) mg/dL Glucose 171 H (75-100) mg/dL POC Glucose 140 H (70-105) Lactic Acid 22.70 H* (0.7-2.0) mmol/L Calcium 7.1 L (8.4-10.2) mg/dL Phosphorus 9.10 H (2.5-4.5) mg/dL Serum Total Protein (6.1-8.1) g/dL Albumin (3.8-4.8) g/dL Upgve-4-Dytdxfste (0.2-0.3) g/dL Abnorm Protein Band 1 g/dL PEP Interpretation 10/16/16 10/16/16 10/16/16 Range/Units 11:15 15:10 15:50 WBC 25.8 H (4.5-11.0) K/mm3 RBC 2.30 L (3.65-5.03) M/mm3 Hgb 7.0 L (11.8-15.2) gm/dl Hct 22.3 L (35.5-45.6) % MCV 97 H (84-94) fl MCHC 31 L (32-34) % RDW 21.2 H (13.2-15.2) % Plt Count 42 L (140-440) K/mm3 Lymphocytes % (Manual) 3.0 L (13.4-35.0) % Nucleated RBC % 2.0 H (0.0-0.9) % Seg Neutrophils # Man 11.1 H (1.8-7.7) K/mm3 Lymphocytes # (Manual) 0.8 L (1.2-5.4) K/mm3 Lupus Anticoagulant LA PTT Baseline (<=40) sec POC ABG pH (7.35-7.45) POC ABG pCO2 (35-45) POC ABG pO2 (80-105) Chloride (98-107) mmol/L Carbon Dioxide (22-30) mmol/L BUN (9-20) mg/dL Creatinine (0.8-1.5) mg/dL Glucose (75-100) mg/dL POC Glucose 47 L 164 H (70-105) Lactic Acid (0.7-2.0) mmol/L Calcium (8.4-10.2) mg/dL Phosphorus (2.5-4.5) mg/dL Serum Total Protein (6.1-8.1) g/dL Albumin (3.8-4.8) g/dL Gdbwg-9-Casghzsre (0.2-0.3) g/dL Abnorm Protein Band 1 g/dL PEP Interpretation 10/16/16 10/16/16 Range/Units 18:11 18:26 WBC (4.5-11.0) K/mm3 RBC (3.65-5.03) M/mm3 Hgb (11.8-15.2) gm/dl Hct (35.5-45.6) % MCV (84-94) fl MCHC (32-34) % RDW (13.2-15.2) % Plt Count (140-440) K/mm3 Lymphocytes % (Manual) (13.4-35.0) % Nucleated RBC % (0.0-0.9) % Seg Neutrophils # Man (1.8-7.7) K/mm3 Lymphocytes # (Manual) (1.2-5.4) K/mm3 Lupus Anticoagulant LA PTT Baseline (<=40) sec POC ABG pH (7.35-7.45) POC ABG pCO2 (35-45) POC ABG pO2 489 H (80-105) Chloride (98-107) mmol/L Carbon Dioxide (22-30) mmol/L BUN (9-20) mg/dL Creatinine (0.8-1.5) mg/dL Glucose (75-100) mg/dL POC Glucose 58 L (70-105) Lactic Acid (0.7-2.0) mmol/L Calcium (8.4-10.2) mg/dL Phosphorus (2.5-4.5) mg/dL Serum Total Protein (6.1-8.1) g/dL Albumin (3.8-4.8) g/dL Zbjvr-6-Ehqzqtjgd (0.2-0.3) g/dL Abnorm Protein Band 1 g/dL PEP Interpretation Assessment and Plan - Patient Problems (1) Anemia Current Visit: Yes Status: Acute Qualifiers: Anemia type: unspecified type Iron deficiency anemia type: I Vitamin B12 deficiency anemia type: V Folate deficiency anemia type: F Bone marrow failure anemia type: B Hemolytic anemia type: H Other causes of anemia: O Qualified Code(s): D64.9 - Anemia, unspecified Plan to address problem: For now, he is getting replacement transfusion. see further w/up. see notes He is getting plasma exchange. (2) Leucopenia Current Visit: Yes Status: Acute Qualifiers: Leukopenia type: unspecified Neutropenia type: N Qualified Code(s): D72.819 - Decreased white blood cell count, unspecified Plan to address problem: will give stimulant if indicated. See notes. (3) Renal failure Current Visit: Yes Status: Acute Qualifiers: Renal failure chronicity: acute Acute renal failure type: unspecified Chronic kidney disease stage: C Qualified Code(s): N17.9 - Acute kidney failure, unspecified Plan to address problem: See w/up, and renal service. see notes
[2016-10-17] MEDS: CLEOCIN 900 MG/50 mL 900 MG/50 ML BAG IV SCH ×3 (04:58→21:13)
[2016-10-17] MEDS: DECADRON IV SCH ×3 (04:58→21:14)
[2016-10-17 05:30] LABS: Hematocrit 21.2 % (35.5-45.6); Hemoglobin 6.6 gm/dl (11.8-15.2); Mean Corpuscular HGB Conc 31 % (32-34); Mean Corpuscular Hemoglobin 30 pg (28-32); Mean Corpuscular Volume 95 fl (84-94); Red Blood Count 2.23 M/mm3 (3.65-5.03)
[2016-10-17 05:33] LABS: ISTAT Base Excess -6; ISTAT HCO3 17.9; ISTAT PCO2 27.2 (35-45); ISTAT PH 7.427 (7.35-7.45); ISTAT PO2 162 (80-105); ISTAT SO2 100; ISTAT TCO2 19
[2016-10-17 05:45] LABS: Red Cell Distribution Width 20.5 % (13.2-15.2); White Blood Count 25.5 K/mm3 (4.5-11.0)
[2016-10-17 05:55] LABS: Calcium 6.9 mg/dL (8.4-10.2); Chloride 91.5 mmol/L (98-107); Phosphorous 5.8 mg/dL (2.5-4.5); Potassium 4.1 mmol/L (3.6-5.0)
[2016-10-17 06:53] LABS: Anisocytosis 1+; Basophils % (Manual) 0 % (0.0-1.8); Blastocytes % (Manual) 0 %; Eosinophils % (Manual) 0 % (0.0-4.3); Microcytosis Few; Platelet Estimate Appears Decreased
[2016-10-17 06:55] LABS: Diff Status Complete; Hypochromasia 1+
[2016-10-17 07:06] LABS: Platelet Count 35 K/mm3 (140-440)
--- NOTE | 2016-10-17 08:44 | XRay Report ---
Single view chest: Compared to 10/16/16. History: Followup of respiratory failure. Findings: Borderline cardiomegaly. Trachea is midline. Stable support system. No consolidation, pneumothorax or pleural effusion. Impression: No acute cardiopulmonary findings.
[2016-10-17] MEDS: D50W (25GM) IV PRN ×3 (09:16→20:44)
--- NOTE | 2016-10-17 09:41 | Progress Note ---
Assessment and Plan - Patient Problems (1) Sepsis Current Visit: Yes Status: Acute Qualifiers: Sepsis type: Streptococcus group B Qualified Code(s): A40.1 - Sepsis due to streptococcus, group B Plan to address problem: 1. Severely ill with severe anemia and thrombocytopenia. 2. Continue Vancomycin with goal high trough 15-20 along with Clindamycin. 3. Consider JONATHAN. (2) Atrial fibrillation Current Visit: Yes Status: Acute Qualifiers: Atrial fibrillation type: A Plan to address problem: Sinus rhythm. Amiodarone per primary/ cardiology. Subjective Date of service: 10/17/16 Principal diagnosis: Sepsis Syndrome; MAHA; RAJESH; CHF Interval history: Remains severely ill in ICU. Now intubated. Objective - Exam Narrative Exam: intubated, unresponsive - Constitutional Vitals: Vital Signs Temp Pulse Resp BP Pulse Ox 98.3 F 66 25 H 100/68 100 10/16/16 16:00 10/17/16 08:30 10/17/16 06:30 10/17/16 08:30 10/17/16 08:30 Temperature -Last 24 Hours Temperature 98.3 F Temperature 98.0 F Temperature 98.2 F Temperature 98.0 F - EENT Eyes: no conjunctival injection ENT: other (ET and Dobhoff tubes in place) - Neck Neck: supple - Respiratory Respiratory: negative: rales, rhonchi - Cardiovascular Rhythm: regular (tachycardic) Heart Sounds: Present: S1 & S2 Extremities: No edema - Gastrointestinal General gastrointestinal: Present: soft, non-distended, hypoactive bowel sounds - Integumentary Integumentary: erythema (scattered purpuric macules) - Neurologic Neurologic: other (unresponsive to voice or touch) - Labs CBC & Chem 7: 10/17/16 04:55 10/17/16 04:55 Labs: Abnormal lab results 10/13/16 10/14/16 10/16/16 Range/Units 14:50 03:00 09:13 WBC (4.5-11.0) K/mm3 RBC (3.65-5.03) M/mm3 Hgb (11.8-15.2) gm/dl Hct (35.5-45.6) % MCV (84-94) fl MCHC (32-34) % RDW (13.2-15.2) % Plt Count (140-440) K/mm3 Seg Neuts % (Manual) (40.0-70.0) % Lymphocytes % (Manual) (13.4-35.0) % Nucleated RBC % (0.0-0.9) % Seg Neutrophils # Man (1.8-7.7) K/mm3 Lymphocytes # (Manual) (1.2-5.4) K/mm3 Lupus Anticoagulant see below H LA PTT Baseline 55 H (<=40) sec POC ABG pCO2 (35-45) POC ABG pO2 (80-105) Chloride (98-107) mmol/L Carbon Dioxide (22-30) mmol/L BUN (9-20) mg/dL Creatinine (0.8-1.5) mg/dL Glucose (75-100) mg/dL POC Glucose 147 H (70-105) Lactic Acid (0.7-2.0) mmol/L Calcium (8.4-10.2) mg/dL Phosphorus (2.5-4.5) mg/dL Serum Total Protein 5.6 L (6.1-8.1) g/dL Albumin 2.2 L (3.8-4.8) g/dL Selub-9-Pzyiidulw 0.5 H (0.2-0.3) g/dL Abnorm Protein Band 1 1.4 H g/dL PEP Interpretation see below H 10/16/16 10/16/16 10/16/16 Range/Units 10:06 10:57 11:15 WBC (4.5-11.0) K/mm3 RBC (3.65-5.03) M/mm3 Hgb (11.8-15.2) gm/dl Hct (35.5-45.6) % MCV (84-94) fl MCHC (32-34) % RDW (13.2-15.2) % Plt Count (140-440) K/mm3 Seg Neuts % (Manual) (40.0-70.0) % Lymphocytes % (Manual) (13.4-35.0) % Nucleated RBC % (0.0-0.9) % Seg Neutrophils # Man (1.8-7.7) K/mm3 Lymphocytes # (Manual) (1.2-5.4) K/mm3 Lupus Anticoagulant LA PTT Baseline (<=40) sec POC ABG pCO2 (35-45) POC ABG pO2 (80-105) Chloride 81.7 L (98-107) mmol/L Carbon Dioxide 13 L D (22-30) mmol/L BUN 61 H (9-20) mg/dL Creatinine 6.2 H (0.8-1.5) mg/dL Glucose 171 H (75-100) mg/dL POC Glucose 137 H 140 H (70-105) Lactic Acid (0.7-2.0) mmol/L Calcium 7.1 L (8.4-10.2) mg/dL Phosphorus 9.10 H (2.5-4.5) mg/dL Serum Total Protein (6.1-8.1) g/dL Albumin (3.8-4.8) g/dL Rwgvm-6-Alzagjrmw (0.2-0.3) g/dL Abnorm Protein Band 1 g/dL PEP Interpretation 10/16/16 10/16/16 10/16/16 Range/Units 11:15 11:15 15:10 WBC 25.8 H (4.5-11.0) K/mm3 RBC 2.30 L (3.65-5.03) M/mm3 Hgb 7.0 L (11.8-15.2) gm/dl Hct 22.3 L (35.5-45.6) % MCV 97 H (84-94) fl MCHC 31 L (32-34) % RDW 21.2 H (13.2-15.2) % Plt Count 42 L (140-440) K/mm3 Seg Neuts % (Manual) (40.0-70.0) % Lymphocytes % (Manual) 3.0 L (13.4-35.0) % Nucleated RBC % 2.0 H (0.0-0.9) % Seg Neutrophils # Man 11.1 H (1.8-7.7) K/mm3 Lymphocytes # (Manual) 0.8 L (1.2-5.4) K/mm3 Lupus Anticoagulant LA PTT Baseline (<=40) sec POC ABG pCO2 (35-45) POC ABG pO2 (80-105) Chloride (98-107) mmol/L Carbon Dioxide (22-30) mmol/L BUN (9-20) mg/dL Creatinine (0.8-1.5) mg/dL Glucose (75-100) mg/dL POC Glucose 47 L (70-105) Lactic Acid 22.70 H* (0.7-2.0) mmol/L Calcium (8.4-10.2) mg/dL Phosphorus (2.5-4.5) mg/dL Serum Total Protein (6.1-8.1) g/dL Albumin (3.8-4.8) g/dL Afsbr-0-Ndjqqaqcu (0.2-0.3) g/dL Abnorm Protein Band 1 g/dL PEP Interpretation 10/16/16 10/16/16 10/16/16 Range/Units 15:50 18:11 18:26 WBC (4.5-11.0) K/mm3 RBC (3.65-5.03) M/mm3 Hgb (11.8-15.2) gm/dl Hct (35.5-45.6) % MCV (84-94) fl MCHC (32-34) % RDW (13.2-15.2) % Plt Count (140-440) K/mm3 Seg Neuts % (Manual) (40.0-70.0) % Lymphocytes % (Manual) (13.4-35.0) % Nucleated RBC % (0.0-0.9) % Seg Neutrophils # Man (1.8-7.7) K/mm3 Lymphocytes # (Manual) (1.2-5.4) K/mm3 Lupus Anticoagulant LA PTT Baseline (<=40) sec POC ABG pCO2 (35-45) POC ABG pO2 489 H (80-105) Chloride (98-107) mmol/L Carbon Dioxide (22-30) mmol/L BUN (9-20) mg/dL Creatinine (0.8-1.5) mg/dL Glucose (75-100) mg/dL POC Glucose 164 H 58 L (70-105) Lactic Acid (0.7-2.0) mmol/L Calcium (8.4-10.2) mg/dL Phosphorus (2.5-4.5) mg/dL Serum Total Protein (6.1-8.1) g/dL Albumin (3.8-4.8) g/dL Tudon-9-Acsbkrvdo (0.2-0.3) g/dL Abnorm Protein Band 1 g/dL PEP Interpretation 05/10/17/16 10/17/16 Range/Units 21:06 00:06 04:55 WBC 25.5 H (4.5-11.0) K/mm3 RBC 2.23 L (3.65-5.03) M/mm3 Hgb 6.6 L (11.8-15.2) gm/dl Hct 21.2 L (35.5-45.6) % MCV 95 H (84-94) fl MCHC 31 L (32-34) % RDW 20.5 H (13.2-15.2) % Plt Count 35 L (140-440) K/mm3 Seg Neuts % (Manual) 79.0 H (40.0-70.0) % Lymphocytes % (Manual) 0 L (13.4-35.0) % Nucleated RBC % (0.0-0.9) % Seg Neutrophils # Man 20.1 H (1.8-7.7) K/mm3 Lymphocytes # (Manual) 0.0 L (1.2-5.4) K/mm3 Lupus Anticoagulant LA PTT Baseline (<=40) sec POC ABG pCO2 (35-45) POC ABG pO2 (80-105) Chloride (98-107) mmol/L Carbon Dioxide (22-30) mmol/L BUN (9-20) mg/dL Creatinine (0.8-1.5) mg/dL Glucose (75-100) mg/dL POC Glucose 52 L 120 H (70-105) Lactic Acid (0.7-2.0) mmol/L Calcium (8.4-10.2) mg/dL Phosphorus (2.5-4.5) mg/dL Serum Total Protein (6.1-8.1) g/dL Albumin (3.8-4.8) g/dL Dvcdb-1-Oregcrirt (0.2-0.3) g/dL Abnorm Protein Band 1 g/dL PEP Interpretation 10/17/16 10/17/16 Range/Units 04:55 05:04 WBC (4.5-11.0) K/mm3 RBC (3.65-5.03) M/mm3 Hgb (11.8-15.2) gm/dl Hct (35.5-45.6) % MCV (84-94) fl MCHC (32-34) % RDW (13.2-15.2) % Plt Count (140-440) K/mm3 Seg Neuts % (Manual) (40.0-70.0) % Lymphocytes % (Manual) (13.4-35.0) % Nucleated RBC % (0.0-0.9) % Seg Neutrophils # Man (1.8-7.7) K/mm3 Lymphocytes # (Manual) (1.2-5.4) K/mm3 Lupus Anticoagulant LA PTT Baseline (<=40) sec POC ABG pCO2 27.2 L (35-45) POC ABG pO2 162 H (80-105) Chloride 91.5 L (98-107) mmol/L Carbon Dioxide 16 L (22-30) mmol/L BUN 45 H (9-20) mg/dL Creatinine 4.5 H (0.8-1.5) mg/dL Glucose 103 H (75-100) mg/dL POC Glucose (70-105) Lactic Acid (0.7-2.0) mmol/L Calcium 6.9 L (8.4-10.2) mg/dL Phosphorus 5.80 H D (2.5-4.5) mg/dL Serum Total Protein (6.1-8.1) g/dL Albumin (3.8-4.8) g/dL Fwoic-1-Iapoubdoe (0.2-0.3) g/dL Abnorm Protein Band 1 g/dL PEP Interpretation Microbiology 10/16/16 21:15 Peripheral/Venous Blood Culture - Preliminary Culture in Progress 10/16/16 20:30 Peripheral/Venous Blood Culture - Preliminary Culture in Progress 10/14/16 16:15 Peripheral/Venous Blood Culture - Preliminary Beta Hemolytic Strep Group B 10/14/16 15:33 Peripheral/Venous Blood Culture - Preliminary Beta Hemolytic Strep Group B Active Medications Acetaminophen (Tylenol) 650 mg PO Q6H PRN PRN Reason: pain Last Admin: 10/14/16 21:13 Dose: 650 mg Acetaminophen (Tylenol) 1,000 mg OH Q4H PRN PRN Reason: Pain, Mild (1-3) Last Admin: 10/16/16 09:00 Dose: 1,000 mg Dexamethasone (Decadron) 4 mg IV Q8H EDWINA Last Admin: 10/17/16 04:58 Dose: 4 mg Dextrose (D50w (25gm)) 25 ml IV PRN PRN PRN Reason: Hypoglycemia Last Admin: 10/17/16 09:16 Dose: 25 ml Diphenhydramine HCl (Benadryl) 50 mg IV Q6H PRN PRN Reason: Itching Last Admin: 10/16/16 09:02 Dose: 50 mg Famotidine (Pepcid) 20 mg IV Q24H EDWINA Last Admin: 10/16/16 20:43 Dose: 20 mg Haloperidol Lactate (Haldol) 5 mg IM Q6H PRN PRN Reason: Agitation Last Admin: 10/14/16 21:11 Dose: 5 mg Heparin Sodium (Porcine) (Heparin) 10,000 unit IV ROD PRN PRN Reason: for plasmapheresis- vascath Hydrophilic Ointment (Vaseline Lip Therapy) 1 applic TP Q2H PRN PRN Reason: Dry Lips Sodium Chloride (Nacl 0.9%) 100 mls @ 999 mls/hr IV ROD PRN PRN Reason: Hypotension Sodium Chloride (Nacl 0.9%) 100 mls @ 999 mls/hr IV ROD PRN PRN Reason: Hypotension Sodium Chloride (Nacl 0.9%) 100 mls @ 999 mls/hr IV ROD PRN PRN Reason: Hypotension Amiodarone HCl 900 mg/ (Dextrose) 500 mls @ 33.33 mls/hr IV DIRECT EDWINA; 1 MG /MIN PRN Reason: Protocol Last Admin: 10/16/16 23:49 Dose: 1 mg/min, 33.33 mls/hr Clindamycin HCl (Cleocin 900 Mg/50 Ml) 900 mg in 50 mls @ 100 mls/hr IV Q8H EDWINA PRN Reason: Protocol Last Admin: 10/17/16 04:58 Dose: 100 mls/hr Norepinephrine (Levophed Drip 4 Mg/Ns 250 Ml) 4 mg in 250 mls @ 7.5 mls/hr IV TITR EDWINA; 2 MCG/MIN PRN Reason: Protocol Last Admin: 10/16/16 17:00 Dose: 2 mcg/min, 7.5 mls/hr Propofol (Diprivan 10 Mg/Ml) 1,000 mg in 100 mls @ 1.827 mls/hr IV TITR EDWINA; 5 MCG/KG/MIN PRN Reason: Protocol Sodium Chloride 76.92 meq/ (Dextrose) 1,019.23 mls @ 75 mls/hr IV DIRECT EDWINA Stop: 10/19/16 08:06 Last Admin: 10/16/16 20:43 Dose: 75 mls/hr Fentanyl Citrate (Fentanyl Drip Premix) 2,000 mcg in 100 mls @ 3.045 mls/hr IV TITR EDWINA; 1 MCG/KG/HR PRN Reason: Protocol Vancomycin HCl 1,250 mg/ (Sodium Chloride) 275 mls @ 166.667 mls/hr IV ONCE ONE Stop: 10/17/16 11:38 Multi-Ingred Cream/Lotion/Oil/Oint (Artificial Tears Ophth Oint) 1 applic OU Q4H PRN PRN Reason: Dry Eye(s) Ondansetron HCl (Zofran) 4 mg IV Q8H PRN PRN Reason: Nausea And Vomiting Sodium Bicarbonate (Sodium Bicarbonate) 650 mg PO BID [facility] Last Admin: 10/16/16 21:04 Dose: Not Given Vancomycin HCl (Vancomycin Pharmacy To Dose) 1 each IV PKCONSULT EDWINA PRN Reason: Protocol - Imaging and cardiology Chest x-ray: report reviewed (no consolidation or infiltrate; no acute abnormality)
[2016-10-17] MEDS ORDERED: VANCOMYCIN 1,250 MG in NACL 0.9% 250ML 250 ML IV ONE (10:00)
--- NOTE | 2016-10-17 10:17 | XRay Report ---
Flatplate of abdomen: History: Dobbhoff placement. Findings: Moderate distention of small bowel with minimal the large bowel. No wall thickening. No radiopaque calculus or abnormal calcification. Impression: Early incomplete small bowel obstruction or ileus.
--- NOTE | 2016-10-17 10:18 | XRay Report ---
Portable abdomen: History: Dobbhoff placement. Findings: Tip of Dobbhoff feeding tube is noted in the stomach. Distended loops of small bowel without interval change. Impression: Include normal feeding tube in the stomach.
[2016-10-17] MEDS ORDERED: NACL 0.9% 500 ML 500 ML IV ONE (10:39)
--- NOTE | 2016-10-17 10:50 | Progress Note ---
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 Acute respiratory failure - intubated. Sepsis / beta hemolitic strep bacterimia / leukocytosis Paroxysmal atrial fibrillation with variable ventricular response --> SR Acute metabolic encephalopathy ARF on CKD - requiring HD Profound metabolic acidemia/lactic acidosis Anemia / thrombocytopenia Plan: Insert DHT. Cont amio gtt and pending successful placement of DHT, consider conversion to PO amio via DHT this afternoon. Given anemia and thrombocytopenia, would defer systemic anticoagulation for now. Consider JONATHAN if blood cultures remain positive to r/o endocarditis. Consider ischemic evaluation when medically stabilized. No ACEI/ARB in setting of ARF on CKD. No BB in setting of hypotension. Watch volume status closely Poor prognosis. The patient has been seen in conjunction with Dr. Vargas who agrees with the assessment and plan of care. Subjective Date of service: 10/17/16 Principal diagnosis: Sepsis Syndrome; MAHA; RAJESH; CHF Interval history: Pt was intubated overnight. On levophed and amio gtts. Currently in SR. No family at bedside. Objective Last Vital Signs Temp 99.1 F 10/17/16 08:00 Pulse 66 10/17/16 08:30 Resp 25 H 10/17/16 06:30 BP 100/68 10/17/16 08:30 Pulse Ox 100 10/17/16 08:30 - Physical Examination General: Other (intubated; sedated) Neck: Positive: neck supple, trachea midline Cardiac: Positive: Reg Rate and Rhythm, S1/S2 Lungs: Positive: Rhonchi, Ventilated Respirations Neuro: Positive: Other (intubated; sedated) Abdomen: Positive: Soft, Active Bowel Sounds Skin: Positive: Clear. Negative: Rash, Wound Musculoskeletal: No Fluid Collection, No Pain, Normal Range of Motion Extremities: Present: upper extr. pulses, lower extr. pulses. Absent: edema - Labs and Meds CBC 10/16/16 10/17/16 Range/Units 11:15 04:55 WBC 25.8 H 25.5 H (4.5-11.0) K/mm3 RBC 2.30 L 2.23 L (3.65-5.03) M/mm3 Hgb 7.0 L 6.6 L (11.8-15.2) gm/dl Hct 22.3 L 21.2 L (35.5-45.6) % Plt Count 42 L 35 L (140-440) K/mm3 Comprehensive Metabolic Panel 10/13/16 10/16/16 10/17/16 Range/Units 14:50 11:15 04:55 Sodium 142 141 (137-145) mmol/L Potassium 5.0 4.1 (3.6-5.0) mmol/L Chloride 81.7 L 91.5 L (98-107) mmol/L Carbon Dioxide 13 L D 16 L (22-30) mmol/L BUN 61 H 45 H (9-20) mg/dL Creatinine 6.2 H 4.5 H (0.8-1.5) mg/dL Glucose 171 H 103 H (75-100) mg/dL Calcium 7.1 L 6.9 L (8.4-10.2) mg/dL Albumin 2.2 L (3.8-4.8) g/dL - Imaging and Cardiology EKG: report reviewed, image reviewed Echo: report reviewed - Telemetry EKG Rhythm: Sinus Rhythm - EKG Supraventricular dysrhythmia: atrial fibrillation
[2016-10-17] MEDS: SODIUM BICARBONATE PO SCH (12:13)
--- NOTE | 2016-10-17 12:31 | Progress Note ---
Assessment and Plan (1) Renal failure Current Visit: Yes Status: Acute Qualifiers: Renal failure chronicity: acute Acute renal failure type: unspecified Chronic kidney disease stage: C Qualified Code(s): N17.9 - Acute kidney failure, unspecified Plan to address problem: no indication for HD today GN work up is in progress- SPEP, UPEP, Anti-GBM, ANCA, XU levels are all pending HCV, HBV, HIV, complement levels are normal hematology on board, no schistocytes on the new blood smear, on plasmapheresis per hematology, [id number] is pending Strict I/O monitoring Avoid Nephrotoxic agents Renally dose medications Obtain daily weights (2) Pancytopenia Current Visit: Yes Status: Acute Plan to address problem: 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 Possible Amyloidosis. (3) Acute respiratory failure Current Visit: Yes Status: Acute Qualifiers: Respiratory failure complication: hypoxia Qualified Code(s): J96.01 - Acute respiratory failure with hypoxia Plan to address problem: intubated (4) Metabolic acidosis Current Visit: Yes Status: Acute Plan to address problem: will sodium bicarb due to resp alkalosis post intubation (5) Anemia Current Visit: Yes Status: Acute Qualifiers: Anemia type: unspecified type Iron deficiency anemia type: I Vitamin B12 deficiency anemia type: V Folate deficiency anemia type: F Bone marrow failure anemia type: B Hemolytic anemia type: H Other causes of anemia: O Qualified Code(s): D64.9 - Anemia, unspecified Plan to address problem: transfuse as needed Hematology on board Subjective Date of service: 10/17/16 Principal diagnosis: Sepsis Syndrome; MAHA; RAJESH; CHF Interval history: intubated and sedated, no family at bedside Objective - Vital Signs Vital signs: Vital Signs - 12hr 10/17/16 10/17/16 10/17/16 00:30 00:38 00:41 Temperature Pulse Rate 70 69 70 Respiratory 25 H 25 H Rate Blood Pressure 99/66 103/66 99/66 O2 Sat by Pulse 100 100 100 Oximetry 10/17/16 10/17/16 10/17/16 00:51 01:00 01:11 Temperature Pulse Rate 69 69 69 Respiratory 25 H 25 H 25 H Rate Blood Pressure 97/64 98/66 98/66 O2 Sat by Pulse 100 100 100 Oximetry 10/17/16 10/17/16 10/17/16 01:21 01:30 01:41 Temperature Pulse Rate 69 69 69 Respiratory 25 H 25 H 25 H Rate Blood Pressure 103/66 100/65 100/65 O2 Sat by Pulse 100 100 100 Oximetry 10/17/16 10/17/16 10/17/16 01:51 02:00 02:11 Temperature Pulse Rate 69 69 68 Respiratory 25 H 25 H 25 H Rate Blood Pressure 104/68 101/65 103/66 O2 Sat by Pulse 100 100 100 Oximetry 10/17/16 10/17/16 10/17/16 02:21 02:30 02:41 Temperature Pulse Rate 68 68 68 Respiratory 24 25 H 25 H Rate Blood Pressure 93/63 94/64 94/64 O2 Sat by Pulse 100 100 100 Oximetry 10/17/16 10/17/16 10/17/16 02:51 03:00 03:11 Temperature Pulse Rate 68 68 67 Respiratory 25 H 25 H 25 H Rate Blood Pressure 103/66 100/66 100/66 O2 Sat by Pulse 100 100 100 Oximetry 10/17/16 10/17/16 10/17/16 03:21 03:30 03:41 Temperature Pulse Rate 67 67 67 Respiratory 25 H 25 H 25 H Rate Blood Pressure 99/67 102/68 102/68 O2 Sat by Pulse 100 100 100 Oximetry 10/17/16 10/17/16 10/17/16 03:51 04:00 04:11 Temperature Pulse Rate 67 66 66 Respiratory 25 H 26 H 25 H Rate Blood Pressure 104/68 99/66 104/68 O2 Sat by Pulse 100 99 100 Oximetry 10/17/16 10/17/16 10/17/16 04:21 04:30 04:41 Temperature Pulse Rate 66 66 66 Respiratory 25 H 25 H 25 H Rate Blood Pressure 94/68 99/65 99/66 O2 Sat by Pulse 100 100 100 Oximetry 10/17/16 10/17/16 10/17/16 04:51 05:00 05:04 Temperature Pulse Rate 67 68 67 Respiratory 25 H 25 H Rate Blood Pressure 102/70 106/70 106/70 O2 Sat by Pulse 100 100 100 Oximetry 10/17/16 10/17/16 10/17/16 05:11 05:21 05:30 Temperature Pulse Rate 66 65 66 Respiratory 25 H 27 H 27 H Rate Blood Pressure 106/70 105/69 86/54 O2 Sat by Pulse 100 100 Oximetry 10/17/16 10/17/16 10/17/16 05:41 05:51 06:00 Temperature Pulse Rate 67 67 67 Respiratory 25 H 26 H 26 H Rate Blood Pressure 86/54 96/51 96/63 O2 Sat by Pulse 97 100 100 Oximetry 10/17/16 10/17/16 10/17/16 06:11 06:21 06:30 Temperature Pulse Rate 67 66 65 Respiratory 13 25 H 25 H Rate Blood Pressure 96/63 104/73 87/57 O2 Sat by Pulse 60 L 98 92 Oximetry 10/17/16 10/17/16 10/17/16 08:00 08:30 11:14 Temperature 99.1 F Pulse Rate 66 63 Respiratory Rate Blood Pressure 100/68 97/62 O2 Sat by Pulse 100 100 Oximetry 10/17/16 10/17/16 11:55 12:10 Temperature 99.7 F H 99.0 F Pulse Rate 63 63 Respiratory 25 H 25 H Rate Blood Pressure 95/64 95/63 O2 Sat by Pulse 100 100 Oximetry - General Appearance General appearance: sedated on ventilator, intubated EENT: ATNC, PERRL, mucous membranes dry Neck: no JVD, no carotid bruit Respiratory: Present: Decreased Breath Sounds. Absent: Rales, Ronchi Cardiology: irregular, tachycardia Gastrointestinal: normoactive bowel sounds, no distended, no masses Integumentary: no rash, warm and dry Neurologic: other (sedated) Musculoskeletal: other (1+ pitting edema in BLE) Psychiatric: other (sedated) - Lab 10/17/16 04:55 10/17/16 04:55 Most recent lab results Calcium 6.9 mg/dL (8.4-10.2) L 10/17/16 04:55 Phosphorus 5.80 mg/dL (2.5-4.5) H D 10/17/16 04:55
[2016-10-17] MEDS: CORDARONE 900 MG in D5W 482 ML IV SCH (14:20)
[2016-10-17] MEDS ORDERED: SODIUM BICARBONATE FEEDTUBE PRN (15:03)
[2016-10-17] MEDS ORDERED: SIMPLE SYRUP FEEDTUBE PRN ×2 (15:03)
[2016-10-17] MEDS ORDERED: PANCREAZE DR 10,500 UNIT FEEDTUBE PRN (15:03)
[2016-10-17] MEDS ORDERED: NACL 0.9 (PRIMING MACHINE ONLY DIALYSIS) MC ONE (15:12)
[2016-10-17 17:08] LABS: Myeloperoxidase Antibody <1.0 AI (<1.0)
--- NOTE | 2016-10-17 17:36 | Progress Note ---
Assessment and Plan Assessment and plan: 61-year-old -Hung[place] male with no significant past medical history presented to the emergency department complaining of bilateral leg swelling that worsened for the last 4 days. The swelling is progressed gradually. Patient denied shortness of breath, orthopenia, PND, palpitations or dizziness. Patient denied bleeding from any sites of his body. Patient has never seen a physician for the last 5 years. Patient checked his blood pressure regularly at [facility] was usually in the normal limit. Patient has been taking Aleve since Monday for leg swelling. Patient denied any chest pain. * Acute metabolic encephalopathy * AFIB WITH RVR * beta hemolitic strep BACTERIMIA * Acute Respiratory failure with hypoxia * Pancytopenia [leukopenia, severe anemia, Woresening thrombocytopenia] POSSIBLE LYMPHOMA * ?DIC * End-stage renal disease * secondary coagulopathy * Lactic acidosis * Probable TTP, HUS, Amyloidosis * persistent hypoglycemia * Acute systolic congestive heart failure EF around 30% * SEVERE SEPSIS plan: * critically ill * Intubated and on full ventiolotry support * Continue abx, JONATHAN pending * Continue PLASMAPHERSIS, will transfuse 1 unit PRBC, Hematology following * ON HD also. * JONATHAN IF CULTURES REMAIN POSITIVE TO R/O ENDOCARDITIS * continue amiodarone * Continue supportive care in the ICU, discussed with worm packer. * Nebulizer treatment * Discussed with Nephrology and oncology, cardiology and awaiting infectious disease input. * We'll obtain MRI brain also CT abdomen and pelvis once patient clinically stable. * The patient on D10 Due to persistent Hypoglycemia-will give an amp of D50 * PICC line placement for better access- May need to be removed if no improvement but before discontinuation of abx * critically ill patient * if no neurology improvement will obtain Neurology eval * Eval for possibly hemolytic syndrome considering * peripheral smear * DVT/GI prophy * plan of care discussed in detail with spouse * Patient is critically sick 35 mins critical care time spent. Spouse updated, History Interval history: Patient seen and examined this morning remains confused, intubated yesterday, still in Afib started on Amiodarone Spouse at bedside. Hospitalist Physical - Physical exam Narrative exam: VITAL SIGNS: Reviewed. GENERAL: sedated and intubated HEAD: No signs of head trauma. EYES: Pupils are equal. EARS: Hearing grossly intact. MOUTH: ETT NECK: No adenopathy, no JVD. CHEST: Chest with diminshed, breath sounds bilaterally. CRACKLES, INCREASED WORK OF BREATHING CARDIAC: Irregularly irregular rate and rythm. S1 and S2, without murmurs, gallops, or rubs. VASCULAR: EDEMA UPPER EXT AND LOWER +3. Peripheral pulses normal and equal in all extremities. ABDOMEN: Soft, without detectable tenderness. No sign of distention. No rebound or guarding, and no masses palpated. Bowel Sounds normal. MUSCULOSKELETAL: Good range of motion of all major joints. Extremities without clubbing, cyanosis. +EDEMA UPPER AND LOWER EXT. NEUROLOGIC EXAM: sedated and intubated SKIN: multiple echymosis and bullea - Constitutional Vitals: Temp Pulse Resp BP Pulse Ox 98.8 F 65 27 H 110/70 100 10/17/16 14:14 10/17/16 17:11 10/17/16 17:11 10/17/16 17:11 10/17/16 17:11 General appearance: Present: well-nourished Results - Labs CBC & Chem 7: 10/17/16 04:55 10/17/16 04:55 Labs: Laboratory Last Values WBC 25.5 K/mm3 (4.5-11.0) H 10/17/16 04:55 RBC 2.23 M/mm3 (3.65-5.03) L 10/17/16 04:55 Hgb 6.6 gm/dl (11.8-15.2) L 10/17/16 04:55 Hct 21.2 % (35.5-45.6) L 10/17/16 04:55 MCV 95 fl (84-94) H 10/17/16 04:55 MCH 30 pg (28-32) 10/17/16 04:55 MCHC 31 % (32-34) L 10/17/16 04:55 RDW 20.5 % (13.2-15.2) H 10/17/16 04:55 Plt Count 35 K/mm3 (140-440) L 10/17/16 04:55 Lymph % (Auto) Immersion [employer] 10/14/16 04:34 [place] % (Auto) Immersion [employer] 10/14/16 04:34 Eos % (Auto) Immersion [employer] 10/14/16 04:34 Baso % (Auto) Immersion [employer] 10/14/16 04:34 Lymph # Immersion [employer] 10/14/16 04:34 [place] # Immersion [employer]er 10/14/16 04:34 Eos # Immersion [employer]er 10/14/16 04:34 Baso # Immersion [employer] 10/14/16 04:34 Add Manual Diff Complete 10/17/16 04:55 Total Counted 100 10/17/16 04:55 Seg Neutrophils % Immersion [employer] 10/17/16 04:55 Seg Neuts % (Manual) 79.0 % (40.0-70.0) H 10/17/16 04:55 Band Neutrophils % 16.0 % 10/17/16 04:55 Lymphocytes % (Manual) 0 % (13.4-35.0) L 10/17/16 04:55 Reactive Lymphs % (Man) 2.0 % 10/17/16 04:55 Monocytes % (Manual) 0 % (0.0-7.3) 10/17/16 04:55 Eosinophils % (Manual) 0 % (0.0-4.3) 10/17/16 04:55 Basophils % (Manual) 0 % (0.0-1.8) 10/17/16 04:55 Metamyelocytes % 2.0 % 10/17/16 04:55 Myelocytes % 1.0 % 10/17/16 04:55 Promyelocytes % 0 % 10/17/16 04:55 Blast Cells % 0 % 10/17/16 04:55 Nucleated RBC % Not Reportable 10/17/16 04:55 Seg Neutrophils # Immersion [employer] 10/14/16 04:34 Seg Neutrophils # Man 20.1 K/mm3 (1.8-7.7) H 10/17/16 04:55 Band Neutrophils # 4.1 K/mm3 10/17/16 04:55 Lymphocytes # (Manual) 0.0 K/mm3 (1.2-5.4) L 10/17/16 04:55 Abs React Lymphs (Man) 0.5 K/mm3 10/17/16 04:55 Monocytes # (Manual) 0.0 K/mm3 (0.0-0.8) 10/17/16 04:55 Eosinophils # (Manual) 0.0 K/mm3 (0.0-0.4) 10/17/16 04:55 Basophils # (Manual) 0.0 K/mm3 (0.0-0.1) 10/17/16 04:55 Metamyelocytes # 0.5 K/mm3 10/17/16 04:55 Myelocytes # 0.3 K/mm3 10/17/16 04:55 Promyelocytes # 0.0 K/mm3 10/17/16 04:55 Blast Cells # 0.0 K/mm3 10/17/16 04:55 WBC Morphology Not Reportable 10/17/16 04:55 Hypersegmented Neuts Not Reportable 10/17/16 04:55 Hyposegmented Neuts Not Reportable 10/17/16 04:55 Hypogranular Neuts Not Reportable 10/17/16 04:55 Smudge Cells Not Reportable 10/17/16 04:55 Toxic Granulation Not Reportable 10/17/16 04:55 Toxic Vacuolation Not Reportable 10/17/16 04:55 Dohle Bodies Not Reportable 10/17/16 04:55 Pelger-Huet Anomaly Not Reportable 10/17/16 04:55 Madhu Rods Not Reportable 10/17/16 04:55 Platelet Estimate Appears decreased 10/17/16 04:55 Clumped Platelets Not Reportable 10/17/16 04:55 Plt Clumps, EDTA Not Reportable 10/17/16 04:55 Large Platelets Not Reportable 10/17/16 04:55 Giant Platelets Not Reportable 10/17/16 04:55 Platelet Satelliting Not Reportable 10/17/16 04:55 Plt Morphology Comment Not Reportable 10/17/16 04:55 RBC Morphology Not Reportable 10/17/16 04:55 Dimorphic RBCs Not Reportable 10/17/16 04:55 Polychromasia Not Reportable 10/17/16 04:55 Hypochromasia 1+ 10/17/16 04:55 Poikilocytosis Not Reportable 10/17/16 04:55 Anisocytosis 1+ 10/17/16 04:55 Microcytosis Few 10/17/16 04:55 Macrocytosis Not Reportable 10/17/16 04:55 Spherocytes Not Reportable 10/17/16 04:55 Pappenheimer Bodies Not Reportable 10/17/16 04:55 Sickle Cells Not Reportable 10/17/16 04:55 Target Cells Not Reportable 10/17/16 04:55 Tear Drop Cells Not Reportable 10/17/16 04:55 Ovalocytes Not Reportable 10/17/16 04:55 Helmet Cells Not Reportable 10/17/16 04:55 [place] Bodies Not Reportable 10/17/16 04:55 [place] Rings Not Reportable 10/17/16 04:55 Sabrina Cells Not Reportable 10/17/16 04:55 Bite Cells Not Reportable 10/17/16 04:55 Crenated Cell Not Reportable 10/17/16 04:55 Elliptocytes Not Reportable 10/17/16 04:55 Acanthocytes (Spur) Not Reportable 10/17/16 04:55 Rouleaux Not Reportable 10/17/16 04:55 Hemoglobin C Crystals Not Reportable 10/17/16 04:55 Schistocytes Not Reportable 10/17/16 04:55 Malaria parasites Not Reportable 10/17/16 04:55 ESR 77 mm/Hr (0-20) 10/14/16 04:34 Pal Bodies Not Reportable 10/17/16 04:55 Haptoglobin 218 mg/dL (43-212) H 10/14/16 09:58 Hem Pathologist Commnt No 10/17/16 04:55 PT 28.9 Sec. (12.2-14.9) H 10/14/16 21:25 INR 2.71 (0.87-1.13) H 10/14/16 21:25 Fibrinogen 557 mg/dl (211-480) H 10/14/16 09:58 Lupus Anticoagulant see below H 10/14/16 03:00 LA PTT Baseline 55 sec (<=40) H 10/14/16 03:00 dRVVT Confirm Interp Negative (Negative) 10/14/16 03:00 POC ABG pH 7.427 (7.35-7.45) 10/17/16 05:04 POC ABG pCO2 27.2 (35-45) L 10/17/16 05:04 POC ABG pO2 162 (80-105) H 10/17/16 05:04 POC ABG HCO3 17.9 10/17/16 05:04 POC ABG Total CO2 19 10/17/16 05:04 POC ABG O2 Sat 100 10/17/16 05:04 POC ABG Base Excess -6 10/17/16 05:04 FiO2 35 % 10/17/16 05:04 Sodium 141 mmol/L (137-145) 10/17/16 04:55 Potassium 4.1 mmol/L (3.6-5.0) 10/17/16 04:55 Chloride 91.5 mmol/L (98-107) L 10/17/16 04:55 Carbon Dioxide 16 mmol/L (22-30) L 10/17/16 04:55 Anion Gap 38 mmol/L 10/17/16 04:55 BUN 45 mg/dL (9-20) H 10/17/16 04:55 Creatinine 4.5 mg/dL (0.8-1.5) H 10/17/16 04:55 Estimated GFR 13 ml/min 10/17/16 04:55 BUN/Creatinine Ratio 10.00 % 10/17/16 04:55 Glucose 103 mg/dL (75-100) H 10/17/16 04:55 POC Glucose 83 (70-105) 10/17/16 05:33 Lactic Acid 22.70 mmol/L (0.7-2.0) H* 10/16/16 11:15 Uric Acid 8.0 mg/dL (3.5-7.6) H 10/14/16 03:00 Calcium 6.9 mg/dL (8.4-10.2) L 10/17/16 04:55 Phosphorus 5.80 mg/dL (2.5-4.5) H D 10/17/16 04:55 Iron 146 ug/dL (49-181) 10/15/16 05:35 TIBC 166 mcg/dL (250-450) L 10/15/16 05:35 Ferritin 9562.0 ng/mL (13.0-400.0) H 10/15/16 05:35 Total Bilirubin 1.30 mg/dL (0.1-1.2) H 10/14/16 09:58 Direct Bilirubin 1.1 mg/dL (0-0.2) H 10/14/16 09:58 Indirect Bilirubin 0.2 mg/dL 10/14/16 09:58 AST 17 units/L (5-40) 10/13/16 10:14 ALT 24 units/L (7-56) 10/13/16 10:14 Alkaline Phosphatase 76 units/L (35-129) 10/13/16 10:14 Lactate Dehydrogenase 3871 units/L (91-180) H 10/15/16 05:35 Troponin T 0.079 ng/mL (0.00-0.029) H 10/13/16 10:14 C-Reactive Protein 40.40 mg/dL (0.00-1.30) H 10/14/16 12:52 NT-Pro-B Natriuret Pep > 72340 pg/mL (0-900) H 10/13/16 10:14 Serum Total Protein 5.6 g/dL (6.1-8.1) L 10/13/16 14:50 Total Protein 6.4 g/dL (6.3-8.2) 10/13/16 10:14 Albumin 2.2 g/dL (3.8-4.8) L 10/13/16 14:50 Albumin/Globulin Ratio 0.6 % 10/13/16 10:14 Xyvcv-0-Ufcnxmpcg 0.5 g/dL (0.2-0.3) H 10/13/16 14:50 Qjbwf-6-Mfxppegru 0.6 g/dL (0.5-0.9) 10/13/16 14:50 Beta Globulins 0.3 g/dL (0.2-0.5) 10/13/16 14:50 Gamma Globulins 1.7 g/dL (0.8-1.7) 10/13/16 14:50 Abnorm Protein Band 1 1.4 g/dL H 10/13/16 14:50 PEP Interpretation see below H 10/13/16 14:50 Triglycerides 119 mg/dL (2-149) 10/13/16 10:14 Cholesterol 71 mg/dL (50-199) 10/13/16 10:14 LDL Cholesterol Direct 41 mg/dL (50-130) L 10/13/16 10:14 HDL Cholesterol 7 mg/dL (40-59) L 10/13/16 10:14 Cholesterol/HDL Ratio 10.14 % 10/13/16 10:14 Lipase 21 units/L (13-60) 10/15/16 05:35 Vitamin B12 893.9 pg/mL (211-911) 10/14/16 03:00 Random Vancomycin 6.2 ug/mL (0-40.0) 10/17/16 04:55 Proteinase 3 (PR3) Ab <1.0 AI (<1.0) 10/13/16 14:50 Myeloperoxidase Ab <1.0 AI (<1.0) 10/13/16 14:50 Glomerular Base Mem IgG <1.0 AI (<1.0) 10/13/16 14:50 Complement C3 101 mg/dL (90-180) 10/13/16 14:50 Complement C4 16 mg/dL (16-47) 10/13/16 14:50 Hep Bs Antigen Non-reactive (Negative) 10/13/16 14:50 Hepatitis C Antibody Non-reactive (NonReactive) 10/13/16 14:50 HIV 1&2 Antibody Rapid Non react (Non React) 10/13/16 14:50 HIV P24 Antigen Non react (Non React) 10/13/16 14:50 Schistocytes Smear None seen 10/15/16 12:00 Blood Type O POSITIVE 10/17/16 07:59 Antibody Screen TNR 10/17/16 07:59 MADIHA Antibody Screen Negative 10/17/16 07:59 Direct Antiglob Test Negative 10/14/16 03:00 ELAINE, Poly Interpret Negative 10/14/16 03:00 Crossmatch See Detail 10/17/16 07:59 - Imaging and Cardiology Chest x-ray: image reviewed (ett in place)
[2016-10-17 17:48] LABS: ISTAT Base Excess -6; ISTAT HCO3 18.2; ISTAT PCO2 28.2 (35-45); ISTAT PH 7.417 (7.35-7.45); ISTAT PO2 104 (80-105); ISTAT SO2 98; ISTAT TCO2 19
[2016-10-17] MEDS ORDERED: CALCIUM GLUCONATE 1,000 MG in NACL 0.9% 100 ML IV ONE (18:09)
[2016-10-17] MEDS: TYLENOL PR PRN (18:15)
[2016-10-17] MEDS: BENADRYL IV PRN (18:30)
[2016-10-17] MEDS: LEVOPHED DRIP 4 MG/NS 250 ML 4 MG/250 ML BAG IV SCH (18:41)
[2016-10-17] MEDS ORDERED: SODIUM CHLORIDE FLUSH SYRINGE 10 ML IV PRN (20:08)
[2016-10-17] MEDS: PEPCID IV SCH (21:14)
--- NOTE | 2016-10-18 03:35 | Progress Note ---
Assessment and Plan - Patient Problems (1) Acute respiratory failure Current Visit: Yes Status: Acute Qualifiers: Respiratory failure complication: hypoxia Qualified Code(s): J96.01 - Acute respiratory failure with hypoxia Plan to address problem: Currently on AC-VC 25/500/PEEP 5/35% ABG- 7.43/27/162/17.9 VAP bundle addressed HOB>40, aspiration precautions CXR in am Start weaning supplemental oxygen Daily SATs/SBTs Agitation management- currently on propofol infusion (2) Septic shock Current Visit: Yes Status: Acute Plan to address problem: Secondary to Streptococcal bacteremia/pneumonia Transthoracic echo was negative for vegetations Continue vasopressor support- keep MAP>65 Antibiotics as per ID service (3) TTP (thrombotic thrombocytopenic purpura) Current Visit: Yes Status: Acute Plan to address problem: As per hematology. Avoid platelet transfusions Plasmapheresis (4) RAJESH (acute kidney injury) Current Visit: Yes Status: Acute Plan to address problem: On supportive HD Renal managing (5) Anemia Current Visit: Yes Status: Acute Qualifiers: Anemia type: unspecified type Iron deficiency anemia type: I Vitamin B12 deficiency anemia type: V Folate deficiency anemia type: F Bone marrow failure anemia type: B Hemolytic anemia type: H Other causes of anemia: O Plan to address problem: Monitor, supportive transfusions as needed. (6) Acute encephalopathy Current Visit: Yes Status: Acute Plan to address problem: If this does not improve in the next 24-48 hours, Non contrast CT head Subjective Date of service: 10/17/16 Principal diagnosis: Sepsis Syndrome; MAHA; RAJESH; CHF Interval history: Patient admitted with * Acute metabolic encephalopathy * AFIB WITH RVR * beta hemolitic strep BACTERIMIA * Acute Respiratory failure with hypoxia * Pancytopenia [leukopenia, severe anemia, Woresening thrombocytopenia] POSSIBLE LYMPHOMA * ?DIC * End-stage renal disease * secondary coagulopathy * Lactic acidosis * Probable TTP, HUS, Amyloidosis * persistent hypoglycemia * Acute systolic congestive heart failure EF around 30% * SEVERE SEPSIS * Today 10/17/2016 Critically ill, on mechanical ventilatory support- required orotracheal intubation 10/16/2016 On going need for vasopressor support- no patient ventilator dyssynchrony On amiodarone infusion for atrial fibrillation with RVR Receiving plasmaphersis On antibiotics for Strep PNA Seen and examined, vitals, labs, records reviewed. Discussed on interdisciplinary rounds Objective - Exam Narrative Exam: VITAL SIGNS: Reviewed. GENERAL: sedated and intubated HEAD: No signs of head trauma. EYES: Pupils are equal. MOUTH: ETT NECK: No adenopathy, no JVD. CHEST: Chest with diminshed, breath sounds bilaterally. CRACKLES, INCREASED WORK OF BREATHING CARDIAC: Irregularly irregular rate and rythm. S1 and S2, without murmurs, gallops, or rubs. VASCULAR: EDEMA UPPER EXT AND LOWER +3. Peripheral pulses normal and equal in all extremities. ABDOMEN: Soft, without detectable tenderness. No sign of distention. No rebound or guarding, and no masses palpated. Bowel Sounds normal. MUSCULOSKELETAL: Good range of motion of all major joints. Extremities without clubbing, cyanosis. +EDEMA UPPER AND LOWER EXT. NEUROLOGIC EXAM: sedated and intubated SKIN: multiple echymosis and bulla Vital Signs - 12hr 10/17/16 10/17/16 10/17/16 15:41 15:51 16:00 Temperature 98.9 F Pulse Rate 64 65 65 Pulse Rate [ 65 From Monitor] Respiratory 26 H 25 H 26 H Rate Respiratory Rate [BILATERAL KNEES] Respiratory Rate [Bilateral Shoulder] Respiratory Rate [RIGHT HAND / WRIST] Blood Pressure 105/71 113/73 95/64 O2 Sat by Pulse 100 100 100 Oximetry 10/17/16 10/17/16 10/17/16 16:11 16:21 16:30 Temperature Pulse Rate 64 64 64 Pulse Rate [ From Monitor] Respiratory 28 H 26 H 26 H Rate Respiratory Rate [BILATERAL KNEES] Respiratory Rate [Bilateral Shoulder] Respiratory Rate [RIGHT HAND / WRIST] Blood Pressure 95/64 96/65 112/74 O2 Sat by Pulse 100 100 100 Oximetry 10/17/16 10/17/16 10/17/16 16:41 16:51 17:00 Temperature Pulse Rate 65 64 65 Pulse Rate [ From Monitor] Respiratory 25 H 25 H 26 H Rate Respiratory Rate [BILATERAL KNEES] Respiratory Rate [Bilateral Shoulder] Respiratory Rate [RIGHT HAND / WRIST] Blood Pressure 112/74 110/74 110/70 O2 Sat by Pulse 100 100 100 Oximetry 10/17/16 10/17/16 10/17/16 17:11 17:21 17:30 Temperature Pulse Rate 65 65 65 Pulse Rate [ From Monitor] Respiratory 27 H 27 H 27 H Rate Respiratory Rate [BILATERAL KNEES] Respiratory Rate [Bilateral Shoulder] Respiratory Rate [RIGHT HAND / WRIST] Blood Pressure 110/70 108/71 113/73 O2 Sat by Pulse 100 100 100 Oximetry 10/17/16 10/17/16 10/17/16 17:39 17:41 17:50 Temperature Pulse Rate 65 65 65 Pulse Rate [ From Monitor] Respiratory 28 H 25 H 27 H Rate Respiratory Rate [BILATERAL KNEES] Respiratory Rate [Bilateral Shoulder] Respiratory Rate [RIGHT HAND / WRIST] Blood Pressure 113/73 113/73 121/83 O2 Sat by Pulse 100 100 100 Oximetry 10/17/16 10/17/16 10/17/16 18:00 18:11 18:21 Temperature Pulse Rate 65 Pulse Rate [ From Monitor] Respiratory 24 Rate Respiratory Rate [BILATERAL KNEES] Respiratory Rate [Bilateral Shoulder] Respiratory Rate [RIGHT HAND / WRIST] Blood Pressure 125/81 125/81 121/83 O2 Sat by Pulse 96 100 97 Oximetry 10/17/16 10/17/16 10/17/16 18:31 18:41 18:51 Temperature Pulse Rate 67 Pulse Rate [ From Monitor] Respiratory 18 Rate Respiratory Rate [BILATERAL KNEES] Respiratory Rate [Bilateral Shoulder] Respiratory Rate [RIGHT HAND / WRIST] Blood Pressure 126/78 126/78 121/82 O2 Sat by Pulse 96 96 62 L Oximetry 10/17/16 10/17/16 10/17/16 19:00 19:11 19:14 Temperature Pulse Rate 68 67 Pulse Rate [ From Monitor] Respiratory 22 26 H 27 H Rate Respiratory Rate [BILATERAL KNEES] Respiratory Rate [Bilateral Shoulder] Respiratory Rate [RIGHT HAND / WRIST] Blood Pressure 124/82 124/82 O2 Sat by Pulse 100 100 Oximetry 10/17/16 10/17/16 10/17/16 19:18 19:21 19:31 Temperature 98.9 F Pulse Rate 68 67 67 Pulse Rate [ From Monitor] Respiratory 27 H 28 H 26 H Rate Respiratory 28 H Rate [BILATERAL KNEES] Respiratory 28 H Rate [Bilateral Shoulder] Respiratory 28 H Rate [RIGHT HAND / WRIST] Blood Pressure 124/82 124/82 110/66 O2 Sat by Pulse 100 100 100 Oximetry 10/17/16 10/17/16 10/17/16 19:41 19:51 20:01 Temperature Pulse Rate 66 67 67 Pulse Rate [ From Monitor] Respiratory 29 H 27 H 26 H Rate Respiratory Rate [BILATERAL KNEES] Respiratory Rate [Bilateral Shoulder] Respiratory Rate [RIGHT HAND / WRIST] Blood Pressure 110/66 111/71 111/62 O2 Sat by Pulse 87 79 L Oximetry 10/17/16 10/17/16 10/17/16 20:10 20:11 20:21 Temperature Pulse Rate 68 67 68 Pulse Rate [ From Monitor] Respiratory 26 H 29 H 32 H Rate Respiratory Rate [BILATERAL KNEES] Respiratory Rate [Bilateral Shoulder] Respiratory Rate [RIGHT HAND / WRIST] Blood Pressure 113/73 111/62 122/74 O2 Sat by Pulse 100 79 L Oximetry 10/17/16 10/17/16 10/17/16 20:31 20:41 20:51 Temperature Pulse Rate 67 66 66 Pulse Rate [ From Monitor] Respiratory 29 H 26 H 25 H Rate Respiratory Rate [BILATERAL KNEES] Respiratory Rate [Bilateral Shoulder] Respiratory Rate [RIGHT HAND / WRIST] Blood Pressure 122/74 109/76 109/76 O2 Sat by Pulse 100 99 Oximetry 10/17/16 10/17/16 10/17/16 21:00 21:01 21:11 Temperature Pulse Rate 68 65 65 Pulse Rate [ From Monitor] Respiratory 24 26 H Rate Respiratory Rate [BILATERAL KNEES] Respiratory Rate [Bilateral Shoulder] Respiratory Rate [RIGHT HAND / WRIST] Blood Pressure 109/76 108/75 O2 Sat by Pulse 100 100 100 Oximetry 10/17/16 10/17/16 10/17/16 21:21 21:30 21:41 Temperature Pulse Rate 66 67 67 Pulse Rate [ From Monitor] Respiratory 15 9 L 13 Rate Respiratory Rate [BILATERAL KNEES] Respiratory Rate [Bilateral Shoulder] Respiratory Rate [RIGHT HAND / WRIST] Blood Pressure 121/82 131/89 131/89 O2 Sat by Pulse 100 99 100 Oximetry 10/17/16 10/17/16 10/17/16 21:51 22:00 22:11 Temperature Pulse Rate 67 67 68 Pulse Rate [ From Monitor] Respiratory 14 13 12 Rate Respiratory Rate [BILATERAL KNEES] Respiratory Rate [Bilateral Shoulder] Respiratory Rate [RIGHT HAND / WRIST] Blood Pressure 137/85 131/87 131/87 O2 Sat by Pulse 100 100 100 Oximetry 10/17/16 10/17/16 10/17/16 22:21 22:30 22:41 Temperature Pulse Rate 67 67 67 Pulse Rate [ From Monitor] Respiratory 14 8 L 10 L Rate Respiratory Rate [BILATERAL KNEES] Respiratory Rate [Bilateral Shoulder] Respiratory Rate [RIGHT HAND / WRIST] Blood Pressure 136/86 133/89 133/89 O2 Sat by Pulse 100 100 100 Oximetry 10/17/16 10/17/16 10/17/16 22:51 23:00 23:11 Temperature Pulse Rate 67 67 66 Pulse Rate [ From Monitor] Respiratory 21 25 H 25 H Rate Respiratory Rate [BILATERAL KNEES] Respiratory Rate [Bilateral Shoulder] Respiratory Rate [RIGHT HAND / WRIST] Blood Pressure 138/88 132/83 132/83 O2 Sat by Pulse 100 100 100 Oximetry 10/17/16 10/17/16 10/17/16 23:21 23:29 23:30 Temperature Pulse Rate 67 67 66 Pulse Rate [ From Monitor] Respiratory 25 H 24 17 Rate Respiratory Rate [BILATERAL KNEES] Respiratory Rate [Bilateral Shoulder] Respiratory Rate [RIGHT HAND / WRIST] Blood Pressure 115/76 115/76 133/87 O2 Sat by Pulse 100 100 100 Oximetry 10/17/16 10/17/16 10/17/16 23:41 23:43 23:51 Temperature Pulse Rate 67 67 66 Pulse Rate [ From Monitor] Respiratory 25 H 22 25 H Rate Respiratory Rate [BILATERAL KNEES] Respiratory Rate [Bilateral Shoulder] Respiratory Rate [RIGHT HAND / WRIST] Blood Pressure 133/87 133/87 132/87 O2 Sat by Pulse 100 100 100 Oximetry 10/18/16 10/18/16 10/18/16 00:00 00:11 00:21 Temperature Pulse Rate 66 66 66 Pulse Rate [ From Monitor] Respiratory 25 H 25 H 25 H Rate Respiratory Rate [BILATERAL KNEES] Respiratory Rate [Bilateral Shoulder] Respiratory Rate [RIGHT HAND / WRIST] Blood Pressure 122/84 122/84 127/83 O2 Sat by Pulse 100 100 100 Oximetry 10/18/16 10/18/16 10/18/16 00:30 00:41 00:51 Temperature Pulse Rate 67 67 67 Pulse Rate [ From Monitor] Respiratory 24 26 H 26 H Rate Respiratory Rate [BILATERAL KNEES] Respiratory Rate [Bilateral Shoulder] Respiratory Rate [RIGHT HAND / WRIST] Blood Pressure 145/90 145/90 146/91 O2 Sat by Pulse 100 100 100 Oximetry 10/18/16 10/18/16 10/18/16 00:56 01:01 01:11 Temperature Pulse Rate 66 109 H 105 H Pulse Rate [ From Monitor] Respiratory 26 H 26 H 32 H Rate Respiratory Rate [BILATERAL KNEES] Respiratory Rate [Bilateral Shoulder] Respiratory Rate [RIGHT HAND / WRIST] Blood Pressure 146/91 146/91 146/91 O2 Sat by Pulse 100 99 99 Oximetry 10/18/16 10/18/16 10/18/16 01:21 01:31 01:41 Temperature Pulse Rate 116 H 100 H 104 H Pulse Rate [ From Monitor] Respiratory 22 22 22 Rate Respiratory Rate [BILATERAL KNEES] Respiratory Rate [Bilateral Shoulder] Respiratory Rate [RIGHT HAND / WRIST] Blood Pressure 154/101 154/101 165/101 O2 Sat by Pulse 100 100 82 L Oximetry 10/18/16 10/18/16 10/18/16 01:51 02:00 02:11 Temperature Pulse Rate 102 H 69 69 Pulse Rate [ From Monitor] Respiratory 25 H 25 H 28 H Rate Respiratory Rate [BILATERAL KNEES] Respiratory Rate [Bilateral Shoulder] Respiratory Rate [RIGHT HAND / WRIST] Blood Pressure 100/56 87/54 87/54 O2 Sat by Pulse 97 100 100 Oximetry Constitutional: lethargic Eyes: non-icteric ENT: oropharynx dry Neck: supple, no lymphadenopathy Effort: mildly labored Ascultation: Bilateral: clear, diminished breath sounds Cardiovascular: irregular rhythm Gastrointestinal: normoactive bowel sounds, soft, non-tender, non-distended Integumentary: normal Extremities: no cyanosis, pulses normal, no ischemia or petechiae, edema Neurologic: non-focal exam (grossly) Psychiatric: other (unable to assess) CBC and BMP: 10/17/16 04:55 10/17/16 04:55 ABG, PT/INR, D-dimer: ABG POC ABG pH 7.417 (7.35-7.45) 10/17/16 17:39 POC ABG pCO2 28.2 (35-45) L 10/17/16 17:39 POC ABG pO2 104 (80-105) 10/17/16 17:39 POC ABG HCO3 18.2 10/17/16 17:39 POC ABG Total CO2 19 10/17/16 17:39 POC ABG O2 Sat 98 10/17/16 17:39 PT/INR, D-dimer PT 28.9 Sec. (12.2-14.9) H 10/14/16 21:25 INR 2.71 (0.87-1.13) H 10/14/16 21:25 Abnormal lab findings: Abnormal Labs 10/13/16 10/13/16 10/13/16 14:50 21:40 22:05 WBC RBC Hgb Hct MCV MCHC RDW Plt Count Seg Neuts % (Manual) Lymphocytes % (Manual) Nucleated RBC % Seg Neutrophils # Man Lymphocytes # (Manual) Haptoglobin PT INR Fibrinogen Lupus Anticoagulant LA PTT Baseline POC ABG pH POC ABG pCO2 POC ABG pO2 Sodium Potassium Chloride Carbon Dioxide BUN Creatinine Glucose POC Glucose 52 L 43 L Lactic Acid Uric Acid Calcium Phosphorus Iron TIBC Ferritin Total Bilirubin Direct Bilirubin Lactate Dehydrogenase C-Reactive Protein Serum Total Protein 5.6 L Albumin 2.2 L Rkusu-5-Txvfvezxc 0.5 H Abnorm Protein Band 1 1.4 H PEP Interpretation see below H Crossmatch 10/13/16 10/14/16 10/14/16 23:18 03:00 03:00 WBC RBC Hgb Hct MCV MCHC RDW Plt Count Seg Neuts % (Manual) Lymphocytes % (Manual) Nucleated RBC % Seg Neutrophils # Man Lymphocytes # (Manual) Haptoglobin PT INR Fibrinogen Lupus Anticoagulant see below H LA PTT Baseline 55 H POC ABG pH POC ABG pCO2 POC ABG pO2 Sodium Potassium Chloride Carbon Dioxide BUN Creatinine Glucose POC Glucose 113 H Lactic Acid Uric Acid Calcium Phosphorus Iron TIBC Ferritin Total Bilirubin Direct Bilirubin Lactate Dehydrogenase 406 H C-Reactive Protein Serum Total Protein Albumin Hbqtb-8-Zyarqtzmy Abnorm Protein Band 1 PEP Interpretation Crossmatch 10/14/16 10/14/16 10/14/16 03:00 03:00 04:34 WBC 1.3 L* RBC 2.33 L Hgb 7.3 L Hct 21.7 L MCV MCHC RDW 19.8 H Plt Count 99 L Seg Neuts % (Manual) Lymphocytes % (Manual) 3.0 L Nucleated RBC % Seg Neutrophils # Man 0.9 L Lymphocytes # (Manual) 0.0 L Haptoglobin PT INR Fibrinogen Lupus Anticoagulant LA PTT Baseline POC ABG pH POC ABG pCO2 POC ABG pO2 Sodium Potassium Chloride Carbon Dioxide 18 L BUN 73 H Creatinine 9.8 H Glucose 59 L POC Glucose Lactic Acid Uric Acid 8.0 H Calcium 8.2 L Phosphorus 6.60 H Iron 13 L TIBC 160 L Ferritin Total Bilirubin Direct Bilirubin Lactate Dehydrogenase C-Reactive Protein Serum Total Protein Albumin Snvhh-6-Zoywvzyjm Abnorm Protein Band 1 PEP Interpretation Crossmatch 10/14/16 10/14/16 10/14/16 05:27 06:29 07:34 WBC RBC Hgb Hct MCV MCHC RDW Plt Count Seg Neuts % (Manual) Lymphocytes % (Manual) Nucleated RBC % Seg Neutrophils # Man Lymphocytes # (Manual) Haptoglobin PT INR Fibrinogen Lupus Anticoagulant LA PTT Baseline POC ABG pH POC ABG pCO2 POC ABG pO2 Sodium Potassium Chloride Carbon Dioxide BUN Creatinine Glucose POC Glucose < 40 L 63 L < 40 L Lactic Acid Uric Acid Calcium Phosphorus Iron TIBC Ferritin Total Bilirubin Direct Bilirubin Lactate Dehydrogenase C-Reactive Protein Serum Total Protein Albumin Qtbas-3-Stwflyicp Abnorm Protein Band 1 PEP Interpretation Crossmatch 10/14/16 10/14/16 10/14/16 09:58 09:58 09:58 WBC RBC Hgb Hct MCV MCHC RDW Plt Count Seg Neuts % (Manual) Lymphocytes % (Manual) Nucleated RBC % Seg Neutrophils # Man Lymphocytes # (Manual) Haptoglobin 218 H PT INR Fibrinogen 557 H Lupus Anticoagulant LA PTT Baseline POC ABG pH POC ABG pCO2 POC ABG pO2 Sodium Potassium Chloride Carbon Dioxide BUN Creatinine Glucose POC Glucose Lactic Acid Uric Acid Calcium Phosphorus Iron TIBC Ferritin Total Bilirubin 1.30 H Direct Bilirubin 1.1 H Lactate Dehydrogenase C-Reactive Protein Serum Total Protein Albumin Yovkq-9-Rkbndoeni Abnorm Protein Band 1 PEP Interpretation Crossmatch 10/14/16 10/14/16 10/14/16 10:57 11:15 12:52 WBC RBC Hgb Hct MCV MCHC RDW Plt Count Seg Neuts % (Manual) Lymphocytes % (Manual) Nucleated RBC % Seg Neutrophils # Man Lymphocytes # (Manual) Haptoglobin PT INR Fibrinogen Lupus Anticoagulant LA PTT Baseline POC ABG pH POC ABG pCO2 POC ABG pO2 Sodium Potassium Chloride Carbon Dioxide BUN Creatinine Glucose POC Glucose < 40 L < 40 L Lactic Acid 9.60 H* Uric Acid Calcium Phosphorus Iron TIBC Ferritin Total Bilirubin Direct Bilirubin Lactate Dehydrogenase C-Reactive Protein Serum Total Protein Albumin Jekph-2-Inwislnze Abnorm Protein Band 1 PEP Interpretation Crossmatch 10/14/16 10/14/16 10/14/16 12:52 13:17 14:12 WBC RBC Hgb Hct MCV MCHC RDW Plt Count Seg Neuts % (Manual) Lymphocytes % (Manual) Nucleated RBC % Seg Neutrophils # Man Lymphocytes # (Manual) Haptoglobin PT INR Fibrinogen Lupus Anticoagulant LA PTT Baseline POC ABG pH POC ABG pCO2 POC ABG pO2 Sodium Potassium Chloride Carbon Dioxide BUN Creatinine Glucose POC Glucose < 40 L < 40 L Lactic Acid Uric Acid Calcium Phosphorus Iron TIBC Ferritin Total Bilirubin Direct Bilirubin Lactate Dehydrogenase C-Reactive Protein 40.40 H Serum Total Protein Albumin Jelqw-2-Olpzzrdpz Abnorm Protein Band 1 PEP Interpretation Crossmatch 10/14/16 10/14/16 10/14/16 15:02 15:33 15:33 WBC RBC Hgb Hct MCV MCHC RDW Plt Count Seg Neuts % (Manual) Lymphocytes % (Manual) Nucleated RBC % Seg Neutrophils # Man Lymphocytes # (Manual) Haptoglobin PT INR Fibrinogen Lupus Anticoagulant LA PTT Baseline POC ABG pH POC ABG pCO2 POC ABG pO2 Sodium Potassium Chloride Carbon Dioxide BUN Creatinine Glucose 19 L* POC Glucose < 40 L Lactic Acid 11.60 H* Uric Acid Calcium Phosphorus Iron TIBC Ferritin Total Bilirubin Direct Bilirubin Lactate Dehydrogenase C-Reactive Protein Serum Total Protein Albumin Bbclz-6-Dcdmjajvz Abnorm Protein Band 1 PEP Interpretation Crossmatch 10/14/16 10/14/16 10/14/16 17:14 18:03 21:25 WBC RBC Hgb Hct MCV MCHC RDW Plt Count Seg Neuts % (Manual) Lymphocytes % (Manual) Nucleated RBC % Seg Neutrophils # Man Lymphocytes # (Manual) Haptoglobin PT 28.9 H INR 2.71 H Fibrinogen Lupus Anticoagulant LA PTT Baseline POC ABG pH POC ABG pCO2 POC ABG pO2 Sodium Potassium Chloride Carbon Dioxide BUN Creatinine Glucose POC Glucose < 40 L 57 L Lactic Acid Uric Acid Calcium Phosphorus Iron TIBC Ferritin Total Bilirubin Direct Bilirubin Lactate Dehydrogenase C-Reactive Protein Serum Total Protein Albumin Efijc-7-Dcanrkpko Abnorm Protein Band 1 PEP Interpretation Crossmatch 10/15/16 10/15/16 10/15/16 05:32 05:35 05:35 WBC RBC 2.62 L Hgb 8.1 L Hct 25.8 L MCV 98 H D MCHC 31 L RDW 21.2 H Plt Count 61 L Seg Neuts % (Manual) 27.0 L Lymphocytes % (Manual) 10.0 L Nucleated RBC % 2.0 H Seg Neutrophils # Man Lymphocytes # (Manual) 0.8 L Haptoglobin PT INR Fibrinogen Lupus Anticoagulant LA PTT Baseline POC ABG pH POC ABG pCO2 POC ABG pO2 Sodium Potassium Chloride Carbon Dioxide BUN Creatinine Glucose POC Glucose < 40 L Lactic Acid Uric Acid Calcium Phosphorus Iron TIBC Ferritin Total Bilirubin Direct Bilirubin Lactate Dehydrogenase 3871 H C-Reactive Protein Serum Total Protein Albumin Wcohi-1-Oirszmulx Abnorm Protein Band 1 PEP Interpretation Crossmatch 10/15/16 10/15/16 10/15/16 05:35 05:35 05:35 WBC RBC Hgb Hct MCV MCHC RDW Plt Count Seg Neuts % (Manual) Lymphocytes % (Manual) Nucleated RBC % Seg Neutrophils # Man Lymphocytes # (Manual) Haptoglobin PT INR Fibrinogen Lupus Anticoagulant LA PTT Baseline POC ABG pH POC ABG pCO2 POC ABG pO2 Sodium 136 L Potassium 5.3 H D Chloride 91.4 L Carbon Dioxide 6 L* D BUN 57 H Creatinine 7.1 H Glucose 11 L* POC Glucose Lactic Acid 13.60 H* Uric Acid Calcium 7.7 L Phosphorus 10.10 H D Iron TIBC 166 L Ferritin 9562.0 H Total Bilirubin Direct Bilirubin Lactate Dehydrogenase C-Reactive Protein Serum Total Protein Albumin Gammw-9-Uzkrswnzo Abnorm Protein Band 1 PEP Interpretation Crossmatch 10/15/16 10/15/16 10/15/16 05:51 06:22 06:52 WBC RBC Hgb Hct MCV MCHC RDW Plt Count Seg Neuts % (Manual) Lymphocytes % (Manual) Nucleated RBC % Seg Neutrophils # Man Lymphocytes # (Manual) Haptoglobin PT INR Fibrinogen Lupus Anticoagulant LA PTT Baseline POC ABG pH 7.189 L POC ABG pCO2 28.9 L POC ABG pO2 Sodium Potassium Chloride Carbon Dioxide BUN Creatinine Glucose POC Glucose 59 L 111 H Lactic Acid Uric Acid Calcium Phosphorus Iron TIBC Ferritin Total Bilirubin Direct Bilirubin Lactate Dehydrogenase C-Reactive Protein Serum Total Protein Albumin Hjnvn-5-Awbhjkeau Abnorm Protein Band 1 PEP Interpretation Crossmatch 10/15/16 10/15/16 10/15/16 08:00 09:57 11:42 WBC RBC Hgb Hct MCV MCHC RDW Plt Count Seg Neuts % (Manual) Lymphocytes % (Manual) Nucleated RBC % Seg Neutrophils # Man Lymphocytes # (Manual) Haptoglobin PT INR Fibrinogen Lupus Anticoagulant LA PTT Baseline POC ABG pH POC ABG pCO2 POC ABG pO2 Sodium Potassium Chloride Carbon Dioxide BUN Creatinine Glucose POC Glucose 63 L 143 H 203 H Lactic Acid Uric Acid Calcium Phosphorus Iron TIBC Ferritin Total Bilirubin Direct Bilirubin Lactate Dehydrogenase C-Reactive Protein Serum Total Protein Albumin Rlxus-2-Igwkvhbwm Abnorm Protein Band 1 PEP Interpretation Crossmatch 10/15/16 10/15/16 10/15/16 12:00 12:00 13:00 WBC RBC Hgb Hct MCV MCHC RDW Plt Count Seg Neuts % (Manual) Lymphocytes % (Manual) Nucleated RBC % Seg Neutrophils # Man Lymphocytes # (Manual) Haptoglobin <15 L PT INR Fibrinogen Lupus Anticoagulant LA PTT Baseline POC ABG pH POC ABG pCO2 POC ABG pO2 Sodium Potassium Chloride Carbon Dioxide BUN Creatinine Glucose POC Glucose 136 H Lactic Acid 16.30 H* Uric Acid Calcium Phosphorus Iron TIBC Ferritin Total Bilirubin Direct Bilirubin Lactate Dehydrogenase C-Reactive Protein Serum Total Protein Albumin Sdtcy-0-Rbinukljx Abnorm Protein Band 1 PEP Interpretation Crossmatch 10/15/16 10/15/16 10/15/16 14:06 15:15 16:23 WBC RBC Hgb Hct MCV MCHC RDW Plt Count Seg Neuts % (Manual) Lymphocytes % (Manual) Nucleated RBC % Seg Neutrophils # Man Lymphocytes # (Manual) Haptoglobin PT INR Fibrinogen Lupus Anticoagulant LA PTT Baseline POC ABG pH POC ABG pCO2 POC ABG pO2 Sodium Potassium Chloride Carbon Dioxide BUN Creatinine Glucose POC Glucose 132 H 64 L Lactic Acid 20.40 H* Uric Acid Calcium Phosphorus Iron TIBC Ferritin Total Bilirubin Direct Bilirubin Lactate Dehydrogenase C-Reactive Protein Serum Total Protein Albumin Lsajz-5-Fznupxlkj Abnorm Protein Band 1 PEP Interpretation Crossmatch 10/15/16 10/15/16 10/15/16 16:40 17:00 17:10 WBC RBC Hgb Hct MCV MCHC RDW Plt Count Seg Neuts % (Manual) Lymphocytes % (Manual) Nucleated RBC % Seg Neutrophils # Man Lymphocytes # (Manual) Haptoglobin PT INR Fibrinogen Lupus Anticoagulant LA PTT Baseline POC ABG pH 7.323 L POC ABG pCO2 25.8 L POC ABG pO2 135 H Sodium Potassium Chloride Carbon Dioxide BUN Creatinine Glucose POC Glucose 159 H Lactic Acid 20.20 H* Uric Acid Calcium Phosphorus Iron TIBC Ferritin Total Bilirubin Direct Bilirubin Lactate Dehydrogenase C-Reactive Protein Serum Total Protein Albumin Wkkjh-4-Nvwlndrin Abnorm Protein Band 1 PEP Interpretation Crossmatch 10/15/16 10/15/16 10/15/16 17:46 17:53 18:45 WBC RBC Hgb Hct MCV MCHC RDW Plt Count Seg Neuts % (Manual) Lymphocytes % (Manual) Nucleated RBC % Seg Neutrophils # Man Lymphocytes # (Manual) Haptoglobin PT INR Fibrinogen Lupus Anticoagulant LA PTT Baseline POC ABG pH POC ABG pCO2 POC ABG pO2 Sodium Potassium Chloride Carbon Dioxide BUN Creatinine Glucose POC Glucose 126 H 143 H Lactic Acid 21.40 H* Uric Acid Calcium Phosphorus Iron TIBC Ferritin Total Bilirubin Direct Bilirubin Lactate Dehydrogenase C-Reactive Protein Serum Total Protein Albumin Zmssi-9-Ilqdvfvna Abnorm Protein Band 1 PEP Interpretation Crossmatch 10/15/16 10/15/16 10/16/16 20:03 22:59 00:06 WBC RBC Hgb Hct MCV MCHC RDW Plt Count Seg Neuts % (Manual) Lymphocytes % (Manual) Nucleated RBC % Seg Neutrophils # Man Lymphocytes # (Manual) Haptoglobin PT INR Fibrinogen Lupus Anticoagulant LA PTT Baseline POC ABG pH POC ABG pCO2 POC ABG pO2 Sodium Potassium Chloride Carbon Dioxide BUN Creatinine Glucose POC Glucose 66 L 53 L 126 H Lactic Acid Uric Acid Calcium Phosphorus Iron TIBC Ferritin Total Bilirubin Direct Bilirubin Lactate Dehydrogenase C-Reactive Protein Serum Total Protein Albumin Mhezc-7-Eanryrbmu Abnorm Protein Band 1 PEP Interpretation Crossmatch 10/16/16 10/16/16 10/16/16 01:03 03:55 04:00 WBC RBC Hgb Hct MCV MCHC RDW Plt Count Seg Neuts % (Manual) Lymphocytes % (Manual) Nucleated RBC % Seg Neutrophils # Man Lymphocytes # (Manual) Haptoglobin PT INR Fibrinogen Lupus Anticoagulant LA PTT Baseline POC ABG pH POC ABG pCO2 POC ABG pO2 Sodium Potassium Chloride Carbon Dioxide BUN Creatinine Glucose POC Glucose 107 H 260 H Lactic Acid 18.00 H* Uric Acid Calcium Phosphorus Iron TIBC Ferritin Total Bilirubin Direct Bilirubin Lactate Dehydrogenase C-Reactive Protein Serum Total Protein Albumin Hbsca-5-Kfbtgcequ Abnorm Protein Band 1 PEP Interpretation Crossmatch 10/16/16 10/16/16 10/16/16 04:03 07:58 08:34 WBC RBC Hgb Hct MCV MCHC RDW Plt Count Seg Neuts % (Manual) Lymphocytes % (Manual) Nucleated RBC % Seg Neutrophils # Man Lymphocytes # (Manual) Haptoglobin PT INR Fibrinogen Lupus Anticoagulant LA PTT Baseline POC ABG pH 7.527 H POC ABG pCO2 32.9 L POC ABG pO2 119 H Sodium Potassium Chloride Carbon Dioxide BUN Creatinine Glucose POC Glucose 120 H 66 L Lactic Acid Uric Acid Calcium Phosphorus Iron TIBC Ferritin Total Bilirubin Direct Bilirubin Lactate Dehydrogenase C-Reactive Protein Serum Total Protein Albumin Zgwiv-2-Vklrkouty Abnorm Protein Band 1 PEP Interpretation Crossmatch 10/16/16 10/16/16 10/16/16 09:13 10:06 10:57 WBC RBC Hgb Hct MCV MCHC RDW Plt Count Seg Neuts % (Manual) Lymphocytes % (Manual) Nucleated RBC % Seg Neutrophils # Man Lymphocytes # (Manual) Haptoglobin PT INR Fibrinogen Lupus Anticoagulant LA PTT Baseline POC ABG pH POC ABG pCO2 POC ABG pO2 Sodium Potassium Chloride Carbon Dioxide BUN Creatinine Glucose POC Glucose 147 H 137 H 140 H Lactic Acid Uric Acid Calcium Phosphorus Iron TIBC Ferritin Total Bilirubin Direct Bilirubin Lactate Dehydrogenase C-Reactive Protein Serum Total Protein Albumin Snemp-8-Idwqfgupf Abnorm Protein Band 1 PEP Interpretation Crossmatch 10/16/16 10/16/16 10/16/16 11:15 11:15 11:15 WBC 25.8 H RBC 2.30 L Hgb 7.0 L Hct 22.3 L MCV 97 H MCHC 31 L RDW 21.2 H Plt Count 42 L Seg Neuts % (Manual) Lymphocytes % (Manual) 3.0 L Nucleated RBC % 2.0 H Seg Neutrophils # Man 11.1 H Lymphocytes # (Manual) 0.8 L Haptoglobin PT INR Fibrinogen Lupus Anticoagulant LA PTT Baseline POC ABG pH POC ABG pCO2 POC ABG pO2 Sodium Potassium Chloride 81.7 L Carbon Dioxide 13 L D BUN 61 H Creatinine 6.2 H Glucose 171 H POC Glucose Lactic Acid 22.70 H* Uric Acid Calcium 7.1 L Phosphorus 9.10 H Iron TIBC Ferritin Total Bilirubin Direct Bilirubin Lactate Dehydrogenase C-Reactive Protein Serum Total Protein Albumin Kvbzj-0-Qxebjttty Abnorm Protein Band 1 PEP Interpretation Crossmatch 10/16/16 10/16/16 10/16/16 15:10 15:50 18:11 WBC RBC Hgb Hct MCV MCHC RDW Plt Count Seg Neuts % (Manual) Lymphocytes % (Manual) Nucleated RBC % Seg Neutrophils # Man Lymphocytes # (Manual) Haptoglobin PT INR Fibrinogen Lupus Anticoagulant LA PTT Baseline POC ABG pH POC ABG pCO2 POC ABG pO2 Sodium Potassium Chloride Carbon Dioxide BUN Creatinine Glucose POC Glucose 47 L 164 H 58 L Lactic Acid Uric Acid Calcium Phosphorus Iron TIBC Ferritin Total Bilirubin Direct Bilirubin Lactate Dehydrogenase C-Reactive Protein Serum Total Protein Albumin Bdfah-6-Grkoxqucm Abnorm Protein Band 1 PEP Interpretation Crossmatch 10/16/16 10/16/16 10/17/16 18:26 21:06 00:06 WBC RBC Hgb Hct MCV MCHC RDW Plt Count Seg Neuts % (Manual) Lymphocytes % (Manual) Nucleated RBC % Seg Neutrophils # Man Lymphocytes # (Manual) Haptoglobin PT INR Fibrinogen Lupus Anticoagulant LA PTT Baseline POC ABG pH POC ABG pCO2 POC ABG pO2 489 H Sodium Potassium Chloride Carbon Dioxide BUN Creatinine Glucose POC Glucose 52 L 120 H Lactic Acid Uric Acid Calcium Phosphorus Iron TIBC Ferritin Total Bilirubin Direct Bilirubin Lactate Dehydrogenase C-Reactive Protein Serum Total Protein Albumin Mgfpq-2-Gflzxzjpk Abnorm Protein Band 1 PEP Interpretation Crossmatch 10/17/16 10/17/16 10/17/16 04:55 04:55 05:04 WBC 25.5 H RBC 2.23 L Hgb 6.6 L Hct 21.2 L MCV 95 H MCHC 31 L RDW 20.5 H Plt Count 35 L Seg Neuts % (Manual) 79.0 H Lymphocytes % (Manual) 0 L Nucleated RBC % Seg Neutrophils # Man 20.1 H Lymphocytes # (Manual) 0.0 L Haptoglobin PT INR Fibrinogen Lupus Anticoagulant LA PTT Baseline POC ABG pH POC ABG pCO2 27.2 L POC ABG pO2 162 H Sodium Potassium Chloride 91.5 L Carbon Dioxide 16 L BUN 45 H Creatinine 4.5 H Glucose 103 H POC Glucose Lactic Acid Uric Acid Calcium 6.9 L Phosphorus 5.80 H D Iron TIBC Ferritin Total Bilirubin Direct Bilirubin Lactate Dehydrogenase C-Reactive Protein Serum Total Protein Albumin Gvaow-6-Ftvroxklc Abnorm Protein Band 1 PEP Interpretation Crossmatch 10/17/16 10/17/16 10/17/16 07:59 09:04 10:04 WBC RBC Hgb Hct MCV MCHC RDW Plt Count Seg Neuts % (Manual) Lymphocytes % (Manual) Nucleated RBC % Seg Neutrophils # Man Lymphocytes # (Manual) Haptoglobin PT INR Fibrinogen Lupus Anticoagulant LA PTT Baseline POC ABG pH POC ABG pCO2 POC ABG pO2 Sodium Potassium Chloride Carbon Dioxide BUN Creatinine Glucose POC Glucose 65 L 118 H Lactic Acid Uric Acid Calcium Phosphorus Iron TIBC Ferritin Total Bilirubin Direct Bilirubin Lactate Dehydrogenase C-Reactive Protein Serum Total Protein Albumin Weqoh-0-Tzxpjtkzf Abnorm Protein Band 1 PEP Interpretation Crossmatch See Detail 10/17/16 10/17/16 10/17/16 11:52 13:08 15:42 WBC RBC Hgb Hct MCV MCHC RDW Plt Count Seg Neuts % (Manual) Lymphocytes % (Manual) Nucleated RBC % Seg Neutrophils # Man Lymphocytes # (Manual) Haptoglobin PT INR Fibrinogen Lupus Anticoagulant LA PTT Baseline POC ABG pH POC ABG pCO2 POC ABG pO2 Sodium Potassium Chloride Carbon Dioxide BUN Creatinine Glucose POC Glucose 125 H 106 H 55 L Lactic Acid Uric Acid Calcium Phosphorus Iron TIBC Ferritin Total Bilirubin Direct Bilirubin Lactate Dehydrogenase C-Reactive Protein Serum Total Protein Albumin Myxdd-3-Azxpooqfg Abnorm Protein Band 1 PEP Interpretation Crossmatch 10/17/16 10/17/16 10/17/16 17:39 20:37 21:02 WBC RBC Hgb Hct MCV MCHC RDW Plt Count Seg Neuts % (Manual) Lymphocytes % (Manual) Nucleated RBC % Seg Neutrophils # Man Lymphocytes # (Manual) Haptoglobin PT INR Fibrinogen Lupus Anticoagulant LA PTT Baseline POC ABG pH POC ABG pCO2 28.2 L POC ABG pO2 Sodium Potassium Chloride Carbon Dioxide BUN Creatinine Glucose POC Glucose < 40 L 106 H Lactic Acid Uric Acid Calcium Phosphorus Iron TIBC Ferritin Total Bilirubin Direct Bilirubin Lactate Dehydrogenase C-Reactive Protein Serum Total Protein Albumin Cfuvu-1-Jtylfjmyo Abnorm Protein Band 1 PEP Interpretation Crossmatch 10/17/16 10/17/16 10/18/16 22:18 23:14 00:28 WBC RBC Hgb Hct MCV MCHC RDW Plt Count Seg Neuts % (Manual) Lymphocytes % (Manual) Nucleated RBC % Seg Neutrophils # Man Lymphocytes # (Manual) Haptoglobin PT INR Fibrinogen Lupus Anticoagulant LA PTT Baseline POC ABG pH POC ABG pCO2 POC ABG pO2 Sodium Potassium Chloride Carbon Dioxide BUN Creatinine Glucose POC Glucose 111 H 118 H 112 H Lactic Acid Uric Acid Calcium Phosphorus Iron TIBC Ferritin Total Bilirubin Direct Bilirubin Lactate Dehydrogenase C-Reactive Protein Serum Total Protein Albumin Dcabw-5-Ofyhvljoo Abnorm Protein Band 1 PEP Interpretation Crossmatch Chest x-ray: report reviewed Allied health notes reviewed: RT Critical care time in (mins) excluding proc time.: 45 Critical care attestation.: If time is entered above; I have spent that time in minutes in the direct care of this critically ill patient, excluding procedure time.
[2016-10-18] MEDS: CLEOCIN 900 MG/50 mL 900 MG/50 ML BAG IV SCH ×3 (05:00→20:20)
[2016-10-18] MEDS: DECADRON IV SCH ×3 (05:24→20:20)
[2016-10-18 05:26] LABS: ISTAT Base Excess -6; ISTAT HCO3 18.1; ISTAT PCO2 25.1 (35-45); ISTAT PH 7.466 (7.35-7.45); ISTAT PO2 87 (80-105); ISTAT SO2 97; ISTAT TCO2 19
[2016-10-18 06:44] LABS: Hematocrit 25.3 % (35.5-45.6); Hemoglobin 7.9 gm/dl (11.8-15.2); Mean Corpuscular HGB Conc 31 % (32-34); Mean Corpuscular Hemoglobin 29 pg (28-32); Mean Corpuscular Volume 92 fl (84-94); Red Blood Count 2.75 M/mm3 (3.65-5.03)
[2016-10-18 06:48] LABS: Red Cell Distribution Width 20.7 % (13.2-15.2); White Blood Count 27.3 K/mm3 (4.5-11.0)
[2016-10-18 07:08] LABS: BUN/Creatinine Ratio 14.04; Calcium 6.1 mg/dL (8.4-10.2); Chloride 88.7 mmol/L (98-107); Potassium 4.4 mmol/L (3.6-5.0)
[2016-10-18 07:13] LABS: Phosphorous 7.3 mg/dL (2.5-4.5)
[2016-10-18] MEDS: D50W (25GM) IV PRN (07:20)
[2016-10-18] MEDS: CORDARONE 900 MG in D5W 482 ML IV SCH (07:33)
--- NOTE | 2016-10-18 08:04 | XRay Report ---
AP CHEST: HISTORY: Followup respiratory failure Lines and tubes are unchanged since yesterday's exam. Mild cardiomegaly is stable. The lungs are clear. No evidence for pneumonia, CHF or pneumothorax. IMPRESSION: No change.
[2016-10-18 08:22] LABS: Blastocytes % (Manual) 0 %
[2016-10-18 08:23] LABS: Anisocytosis 1+; Basophils % (Manual) 0 % (0.0-1.8); Eosinophils % (Manual) 0 % (0.0-4.3); Total Cells Counted Percent 0
[2016-10-18 08:24] LABS: Diff Status Complete; Hypochromasia 1+; Platelet Estimate Appears Decreased
[2016-10-18 08:29] LABS: Platelet Count 31 K/mm3 (140-440)
--- NOTE | 2016-10-18 09:37 | Progress Note ---
Assessment and Plan (1) Renal failure Current Visit: Yes Status: Acute Qualifiers: Renal failure chronicity: acute Acute renal failure type: unspecified Chronic kidney disease stage: C Qualified Code(s): N17.9 - Acute kidney failure, unspecified Plan to address problem: HD today for clearance and gentle volume removal GN work up is in progress- SPEP, UPEP are pending. HCV, HBV, HIV, Anti GBM, ANCA, complement levels are normal hematology on board, possibel TMA, low haptoglobin, on plasmapheresis per hematology, [id number] is pending Strict I/O monitoring Avoid Nephrotoxic agents Renally dose medications Obtain daily weights (2) Pancytopenia Current Visit: Yes Status: Acute Plan to address problem: 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 Possible Amyloidosis. (3) Acute respiratory failure Current Visit: Yes Status: Acute Qualifiers: Respiratory failure complication: hypoxia Qualified Code(s): J96.01 - Acute respiratory failure with hypoxia Plan to address problem: intubated (4) Metabolic acidosis Current Visit: Yes Status: Acute Plan to address problem: HD as needed (5) Anemia Current Visit: Yes Status: Acute Qualifiers: Anemia type: unspecified type Iron deficiency anemia type: I Vitamin B12 deficiency anemia type: V Folate deficiency anemia type: F Bone marrow failure anemia type: B Hemolytic anemia type: H Other causes of anemia: O Qualified Code(s): D64.9 - Anemia, unspecified Plan to address problem: transfuse as needed Hematology on board Subjective Date of service: 10/18/16 Principal diagnosis: Sepsis Syndrome; MAHA; RAJESH; CHF Interval history: patient is intubated and sedated Objective - Vital Signs Vital signs: Vital Signs - 12hr 10/17/16 10/17/16 10/17/16 21:41 21:51 22:00 Pulse Rate 67 67 67 Respiratory 13 14 13 Rate Respiratory Rate [BILATERAL KNEES] Respiratory Rate [Bilateral Shoulder] Respiratory Rate [RIGHT HAND / WRIST] Blood Pressure 131/89 137/85 131/87 O2 Sat by Pulse 100 100 100 Oximetry 10/17/16 10/17/16 10/17/16 22:11 22:21 22:30 Pulse Rate 68 67 67 Respiratory 12 14 8 L Rate Respiratory Rate [BILATERAL KNEES] Respiratory Rate [Bilateral Shoulder] Respiratory Rate [RIGHT HAND / WRIST] Blood Pressure 131/87 136/86 133/89 O2 Sat by Pulse 100 100 100 Oximetry 10/17/16 10/17/16 10/17/16 22:41 22:51 23:00 Pulse Rate 67 67 67 Respiratory 10 L 21 25 H Rate Respiratory Rate [BILATERAL KNEES] Respiratory Rate [Bilateral Shoulder] Respiratory Rate [RIGHT HAND / WRIST] Blood Pressure 133/89 138/88 132/83 O2 Sat by Pulse 100 100 100 Oximetry 10/17/16 10/17/16 10/17/16 23:11 23:21 23:29 Pulse Rate 66 67 67 Respiratory 25 H 25 H 24 Rate Respiratory Rate [BILATERAL KNEES] Respiratory Rate [Bilateral Shoulder] Respiratory Rate [RIGHT HAND / WRIST] Blood Pressure 132/83 115/76 115/76 O2 Sat by Pulse 100 100 100 Oximetry 10/17/16 10/17/16 10/17/16 23:30 23:41 23:43 Pulse Rate 66 67 67 Respiratory 17 25 H 22 Rate Respiratory Rate [BILATERAL KNEES] Respiratory Rate [Bilateral Shoulder] Respiratory Rate [RIGHT HAND / WRIST] Blood Pressure 133/87 133/87 133/87 O2 Sat by Pulse 100 100 100 Oximetry 10/17/16 10/18/16 10/18/16 23:51 00:00 00:11 Pulse Rate 66 66 66 Respiratory 25 H 25 H 25 H Rate Respiratory Rate [BILATERAL KNEES] Respiratory Rate [Bilateral Shoulder] Respiratory Rate [RIGHT HAND / WRIST] Blood Pressure 132/87 122/84 122/84 O2 Sat by Pulse 100 100 100 Oximetry 10/18/16 10/18/16 10/18/16 00:21 00:30 00:41 Pulse Rate 66 67 67 Respiratory 25 H 24 26 H Rate Respiratory Rate [BILATERAL KNEES] Respiratory Rate [Bilateral Shoulder] Respiratory Rate [RIGHT HAND / WRIST] Blood Pressure 127/83 145/90 145/90 O2 Sat by Pulse 100 100 100 Oximetry 10/18/16 10/18/16 10/18/16 00:51 00:56 01:01 Pulse Rate 67 66 109 H Respiratory 26 H 26 H 26 H Rate Respiratory Rate [BILATERAL KNEES] Respiratory Rate [Bilateral Shoulder] Respiratory Rate [RIGHT HAND / WRIST] Blood Pressure 146/91 146/91 146/91 O2 Sat by Pulse 100 100 99 Oximetry 10/18/16 10/18/16 10/18/16 01:11 01:21 01:31 Pulse Rate 105 H 116 H 100 H Respiratory 32 H 22 22 Rate Respiratory Rate [BILATERAL KNEES] Respiratory Rate [Bilateral Shoulder] Respiratory Rate [RIGHT HAND / WRIST] Blood Pressure 146/91 154/101 154/101 O2 Sat by Pulse 99 100 100 Oximetry 10/18/16 10/18/16 10/18/16 01:41 01:51 02:00 Pulse Rate 104 H 102 H 69 Respiratory 22 25 H 25 H Rate Respiratory Rate [BILATERAL KNEES] Respiratory Rate [Bilateral Shoulder] Respiratory Rate [RIGHT HAND / WRIST] Blood Pressure 165/101 100/56 87/54 O2 Sat by Pulse 82 L 97 100 Oximetry 10/18/16 10/18/16 10/18/16 02:11 02:21 02:30 Pulse Rate 69 69 68 Respiratory 28 H 29 H 25 H Rate Respiratory Rate [BILATERAL KNEES] Respiratory Rate [Bilateral Shoulder] Respiratory Rate [RIGHT HAND / WRIST] Blood Pressure 87/54 84/55 80/48 O2 Sat by Pulse 100 100 100 Oximetry 10/18/16 10/18/16 10/18/16 02:41 02:51 03:00 Pulse Rate 67 67 67 Respiratory 25 H 25 H 25 H Rate Respiratory Rate [BILATERAL KNEES] Respiratory Rate [Bilateral Shoulder] Respiratory Rate [RIGHT HAND / WRIST] Blood Pressure 80/48 82/51 82/53 O2 Sat by Pulse 100 100 100 Oximetry 10/18/16 10/18/16 10/18/16 03:11 03:21 03:30 Pulse Rate 67 67 66 Respiratory 21 16 11 L Rate Respiratory Rate [BILATERAL KNEES] Respiratory Rate [Bilateral Shoulder] Respiratory Rate [RIGHT HAND / WRIST] Blood Pressure 82/53 84/53 88/55 O2 Sat by Pulse 100 100 100 Oximetry 10/18/16 10/18/16 10/18/16 03:41 03:51 04:00 Pulse Rate 67 67 67 Respiratory 17 9 L 22 Rate Respiratory Rate [BILATERAL KNEES] Respiratory Rate [Bilateral Shoulder] Respiratory Rate [RIGHT HAND / WRIST] Blood Pressure 88/55 92/62 88/60 O2 Sat by Pulse 100 100 100 Oximetry 10/18/16 10/18/16 10/18/16 04:09 04:11 04:21 Pulse Rate 67 67 67 Respiratory 24 25 H 25 H Rate Respiratory Rate [BILATERAL KNEES] Respiratory Rate [Bilateral Shoulder] Respiratory Rate [RIGHT HAND / WRIST] Blood Pressure 92/62 88/60 89/59 O2 Sat by Pulse 100 100 100 Oximetry 10/18/16 10/18/16 10/18/16 04:30 04:41 04:51 Pulse Rate 67 67 67 Respiratory 20 25 H 25 H Rate Respiratory Rate [BILATERAL KNEES] Respiratory Rate [Bilateral Shoulder] Respiratory Rate [RIGHT HAND / WRIST] Blood Pressure 89/61 89/61 94/60 O2 Sat by Pulse 100 100 100 Oximetry 10/18/16 10/18/16 10/18/16 05:00 05:11 05:21 Pulse Rate 66 67 68 Respiratory 25 H 25 H 25 H Rate Respiratory 28 H Rate [BILATERAL KNEES] Respiratory 28 H Rate [Bilateral Shoulder] Respiratory 28 H Rate [RIGHT HAND / WRIST] Blood Pressure 80/50 80/50 84/53 O2 Sat by Pulse 100 99 100 Oximetry 10/18/16 10/18/16 10/18/16 05:30 05:41 05:51 Pulse Rate 67 67 67 Respiratory 25 H 17 21 Rate Respiratory Rate [BILATERAL KNEES] Respiratory Rate [Bilateral Shoulder] Respiratory Rate [RIGHT HAND / WRIST] Blood Pressure 90/52 90/52 84/51 O2 Sat by Pulse 100 100 100 Oximetry 10/18/16 10/18/16 10/18/16 06:00 06:11 06:21 Pulse Rate 68 68 68 Respiratory 27 H 27 H 29 H Rate Respiratory Rate [BILATERAL KNEES] Respiratory Rate [Bilateral Shoulder] Respiratory Rate [RIGHT HAND / WRIST] Blood Pressure 80/54 80/54 89/60 O2 Sat by Pulse 100 100 100 Oximetry 10/18/16 10/18/16 10/18/16 06:30 06:41 06:51 Pulse Rate 69 69 69 Respiratory 28 H 27 H 27 H Rate Respiratory Rate [BILATERAL KNEES] Respiratory Rate [Bilateral Shoulder] Respiratory Rate [RIGHT HAND / WRIST] Blood Pressure 89/60 89/60 87/58 O2 Sat by Pulse 100 100 100 Oximetry 10/18/16 10/18/16 10/18/16 07:00 07:11 07:21 Pulse Rate 70 70 69 Respiratory 29 H 28 H 25 H Rate Respiratory Rate [BILATERAL KNEES] Respiratory Rate [Bilateral Shoulder] Respiratory Rate [RIGHT HAND / WRIST] Blood Pressure 90/58 90/58 81/53 O2 Sat by Pulse 100 100 100 Oximetry 10/18/16 07:30 Pulse Rate 68 Respiratory 25 H Rate Respiratory Rate [BILATERAL KNEES] Respiratory Rate [Bilateral Shoulder] Respiratory Rate [RIGHT HAND / WRIST] Blood Pressure 86/54 O2 Sat by Pulse 100 Oximetry - General Appearance General appearance: sedated on ventilator, intubated EENT: ATNC, PERRL, mucous membranes dry Neck: no JVD, no carotid bruit Respiratory: Present: Clear to Ascultation. Absent: Rales, Ronchi Cardiology: regular, S1S2 Gastrointestinal: normoactive bowel sounds, no tenderness, no distended, no masses Integumentary: no rash, warm and dry Neurologic: other (sedated and intubated) Musculoskeletal: other (1+ pitting edema in BLE) Psychiatric: other (sedated) - Lab 10/18/16 05:00 10/18/16 05:00 Most recent lab results Calcium 6.1 mg/dL (8.4-10.2) L 10/18/16 05:00 Phosphorus 7.30 mg/dL (2.5-4.5) H D 10/18/16 05:00
--- NOTE | 2016-10-18 10:08 | Progress Note ---
Assessment and Plan - Patient Problems (1) Acute respiratory failure Current Visit: Yes Status: Acute Qualifiers: Respiratory failure complication: hypoxia Qualified Code(s): J96.01 - Acute respiratory failure with hypoxia Plan to address problem: Currently on AC-VC 25/500/PEEP 5/35% ABG- 7.43/27/162/17.9 VAP bundle addressed HOB>40, aspiration precautions CXR in am Start weaning supplemental oxygen Daily SATs/SBTs Agitation management- intermittent medication Nutrition - resume trophic feeds at 10cc/hour, continuous. Will re-evaluate in am and advance as tolerated (2) Septic shock Current Visit: Yes Status: Acute Plan to address problem: Secondary to Streptococcal bacteremia/pneumonia Transthoracic echo was negative for vegetations Continue vasopressor support- keep MAP>65 Antibiotics as per ID service (3) TTP (thrombotic thrombocytopenic purpura) Current Visit: Yes Status: Acute Plan to address problem: As per hematology. Avoid platelet transfusions Plasmapheresis (4) RAJESH (acute kidney injury) Current Visit: Yes Status: Acute Plan to address problem: On supportive HD Renal managing (5) Anemia Current Visit: Yes Status: Acute Qualifiers: Anemia type: unspecified type Iron deficiency anemia type: I Vitamin B12 deficiency anemia type: V Folate deficiency anemia type: F Bone marrow failure anemia type: B Hemolytic anemia type: H Other causes of anemia: O Qualified Code(s): D64.9 - Anemia, unspecified Plan to address problem: Monitor, supportive transfusions as needed. s/p 1 unit PRBC (6) Acute encephalopathy Current Visit: Yes Status: Acute Plan to address problem: Slowly improving, monitor (7) Hypoglycemia Current Visit: Yes Status: Acute Plan to address problem: Add D5-1/2NSaline and monitor. Resume enteral feedings. Subjective Date of service: 10/18/16 Principal diagnosis: Sepsis Syndrome; MAHA; RAJESH; CHF Interval history: Patient admitted with * Acute metabolic encephalopathy * AFIB WITH RVR * beta hemolitic strep BACTERIMIA * Acute Respiratory failure with hypoxia * Pancytopenia [leukopenia, severe anemia, Woresening thrombocytopenia] POSSIBLE LYMPHOMA * ?DIC * End-stage renal disease * secondary coagulopathy * Lactic acidosis * Probable TTP, HUS, Amyloidosis * persistent hypoglycemia * Acute systolic congestive heart failure EF around 30% * SEVERE SEPSIS * Today 10/18/2016 Critically ill, on mechanical ventilatory support- required orotracheal intubation 10/16/2016 On going need for vasopressor support- no patient ventilator dys-synchrony On amiodarone infusion for atrial fibrillation with RVR Receiving plasmaphersis On antibiotics for Strep PNA Seen and examined, vitals, labs, records reviewed. More awake today, appears to track voice Tube feedings held ovr night for reportedly high residuals Discussed on interdisciplinary rounds Objective - Exam Narrative Exam: GEN: Critically ill intubated but not sedated HEENT: Eyes are floating, ET tube in place CVS: irregular, NORMAL S1S2 LUNGS/CHEST: NORMAL CHEST EXPANSION B, GOOD AIR ENTRY B ABD: SOFT, POSITIVE BOWEL SOUNDS, NONDISTENDED, NO REBOUND OR GUARDING NEURO: CN 2-12 GROSSLY INTACT, he doesn't follow commands PSY: Unresponsive Vital Signs - 12hr 10/17/16 10/17/16 10/17/16 22:11 22:21 22:30 Temperature Pulse Rate 68 67 67 Respiratory 12 14 8 L Rate Respiratory Rate [BILATERAL KNEES] Respiratory Rate [Bilateral Shoulder] Respiratory Rate [RIGHT HAND / WRIST] Blood Pressure 131/87 136/86 133/89 O2 Sat by Pulse 100 100 100 Oximetry 10/17/16 10/17/16 10/17/16 22:41 22:51 23:00 Temperature Pulse Rate 67 67 67 Respiratory 10 L 21 25 H Rate Respiratory Rate [BILATERAL KNEES] Respiratory Rate [Bilateral Shoulder] Respiratory Rate [RIGHT HAND / WRIST] Blood Pressure 133/89 138/88 132/83 O2 Sat by Pulse 100 100 100 Oximetry 10/17/16 10/17/16 10/17/16 23:11 23:21 23:29 Temperature Pulse Rate 66 67 67 Respiratory 25 H 25 H 24 Rate Respiratory Rate [BILATERAL KNEES] Respiratory Rate [Bilateral Shoulder] Respiratory Rate [RIGHT HAND / WRIST] Blood Pressure 132/83 115/76 115/76 O2 Sat by Pulse 100 100 100 Oximetry 10/17/16 10/17/16 10/17/16 23:30 23:41 23:43 Temperature Pulse Rate 66 67 67 Respiratory 17 25 H 22 Rate Respiratory Rate [BILATERAL KNEES] Respiratory Rate [Bilateral Shoulder] Respiratory Rate [RIGHT HAND / WRIST] Blood Pressure 133/87 133/87 133/87 O2 Sat by Pulse 100 100 100 Oximetry 10/17/16 10/18/16 10/18/16 23:51 00:00 00:11 Temperature Pulse Rate 66 66 66 Respiratory 25 H 25 H 25 H Rate Respiratory Rate [BILATERAL KNEES] Respiratory Rate [Bilateral Shoulder] Respiratory Rate [RIGHT HAND / WRIST] Blood Pressure 132/87 122/84 122/84 O2 Sat by Pulse 100 100 100 Oximetry 10/18/16 10/18/16 10/18/16 00:21 00:30 00:41 Temperature Pulse Rate 66 67 67 Respiratory 25 H 24 26 H Rate Respiratory Rate [BILATERAL KNEES] Respiratory Rate [Bilateral Shoulder] Respiratory Rate [RIGHT HAND / WRIST] Blood Pressure 127/83 145/90 145/90 O2 Sat by Pulse 100 100 100 Oximetry 10/18/16 10/18/16 10/18/16 00:51 00:56 01:01 Temperature Pulse Rate 67 66 109 H Respiratory 26 H 26 H 26 H Rate Respiratory Rate [BILATERAL KNEES] Respiratory Rate [Bilateral Shoulder] Respiratory Rate [RIGHT HAND / WRIST] Blood Pressure 146/91 146/91 146/91 O2 Sat by Pulse 100 100 99 Oximetry 10/18/16 10/18/16 10/18/16 01:11 01:21 01:31 Temperature Pulse Rate 105 H 116 H 100 H Respiratory 32 H 22 22 Rate Respiratory Rate [BILATERAL KNEES] Respiratory Rate [Bilateral Shoulder] Respiratory Rate [RIGHT HAND / WRIST] Blood Pressure 146/91 154/101 154/101 O2 Sat by Pulse 99 100 100 Oximetry 10/18/16 10/18/16 10/18/16 01:41 01:51 02:00 Temperature Pulse Rate 104 H 102 H 69 Respiratory 22 25 H 25 H Rate Respiratory Rate [BILATERAL KNEES] Respiratory Rate [Bilateral Shoulder] Respiratory Rate [RIGHT HAND / WRIST] Blood Pressure 165/101 100/56 87/54 O2 Sat by Pulse 82 L 97 100 Oximetry 10/18/16 10/18/16 10/18/16 02:11 02:21 02:30 Temperature Pulse Rate 69 69 68 Respiratory 28 H 29 H 25 H Rate Respiratory Rate [BILATERAL KNEES] Respiratory Rate [Bilateral Shoulder] Respiratory Rate [RIGHT HAND / WRIST] Blood Pressure 87/54 84/55 80/48 O2 Sat by Pulse 100 100 100 Oximetry 10/18/16 10/18/16 10/18/16 02:41 02:51 03:00 Temperature Pulse Rate 67 67 67 Respiratory 25 H 25 H 25 H Rate Respiratory Rate [BILATERAL KNEES] Respiratory Rate [Bilateral Shoulder] Respiratory Rate [RIGHT HAND / WRIST] Blood Pressure 80/48 82/51 82/53 O2 Sat by Pulse 100 100 100 Oximetry 10/18/16 10/18/16 10/18/16 03:11 03:21 03:30 Temperature Pulse Rate 67 67 66 Respiratory 21 16 11 L Rate Respiratory Rate [BILATERAL KNEES] Respiratory Rate [Bilateral Shoulder] Respiratory Rate [RIGHT HAND / WRIST] Blood Pressure 82/53 84/53 88/55 O2 Sat by Pulse 100 100 100 Oximetry 10/18/16 10/18/16 10/18/16 03:41 03:51 04:00 Temperature Pulse Rate 67 67 67 Respiratory 17 9 L 22 Rate Respiratory Rate [BILATERAL KNEES] Respiratory Rate [Bilateral Shoulder] Respiratory Rate [RIGHT HAND / WRIST] Blood Pressure 88/55 92/62 88/60 O2 Sat by Pulse 100 100 100 Oximetry 10/18/16 10/18/16 10/18/16 04:09 04:11 04:21 Temperature Pulse Rate 67 67 67 Respiratory 24 25 H 25 H Rate Respiratory Rate [BILATERAL KNEES] Respiratory Rate [Bilateral Shoulder] Respiratory Rate [RIGHT HAND / WRIST] Blood Pressure 92/62 88/60 89/59 O2 Sat by Pulse 100 100 100 Oximetry 10/18/16 10/18/16 10/18/16 04:30 04:41 04:51 Temperature Pulse Rate 67 67 67 Respiratory 20 25 H 25 H Rate Respiratory Rate [BILATERAL KNEES] Respiratory Rate [Bilateral Shoulder] Respiratory Rate [RIGHT HAND / WRIST] Blood Pressure 89/61 89/61 94/60 O2 Sat by Pulse 100 100 100 Oximetry 10/18/16 10/18/16 10/18/16 05:00 05:11 05:21 Temperature Pulse Rate 66 67 68 Respiratory 25 H 25 H 25 H Rate Respiratory 28 H Rate [BILATERAL KNEES] Respiratory 28 H Rate [Bilateral Shoulder] Respiratory 28 H Rate [RIGHT HAND / WRIST] Blood Pressure 80/50 80/50 84/53 O2 Sat by Pulse 100 99 100 Oximetry 10/18/16 10/18/16 10/18/16 05:30 05:41 05:51 Temperature Pulse Rate 67 67 67 Respiratory 25 H 17 21 Rate Respiratory Rate [BILATERAL KNEES] Respiratory Rate [Bilateral Shoulder] Respiratory Rate [RIGHT HAND / WRIST] Blood Pressure 90/52 90/52 84/51 O2 Sat by Pulse 100 100 100 Oximetry 10/18/16 10/18/16 10/18/16 06:00 06:11 06:21 Temperature Pulse Rate 68 68 68 Respiratory 27 H 27 H 29 H Rate Respiratory Rate [BILATERAL KNEES] Respiratory Rate [Bilateral Shoulder] Respiratory Rate [RIGHT HAND / WRIST] Blood Pressure 80/54 80/54 89/60 O2 Sat by Pulse 100 100 100 Oximetry 10/18/16 10/18/16 10/18/16 06:30 06:41 06:51 Temperature Pulse Rate 69 69 69 Respiratory 28 H 27 H 27 H Rate Respiratory Rate [BILATERAL KNEES] Respiratory Rate [Bilateral Shoulder] Respiratory Rate [RIGHT HAND / WRIST] Blood Pressure 89/60 89/60 87/58 O2 Sat by Pulse 100 100 100 Oximetry 10/18/16 10/18/16 10/18/16 07:00 07:11 07:21 Temperature Pulse Rate 70 70 69 Respiratory 29 H 28 H 25 H Rate Respiratory Rate [BILATERAL KNEES] Respiratory Rate [Bilateral Shoulder] Respiratory Rate [RIGHT HAND / WRIST] Blood Pressure 90/58 90/58 81/53 O2 Sat by Pulse 100 100 100 Oximetry 10/18/16 10/18/16 07:30 08:00 Temperature 99.8 F H Pulse Rate 68 Respiratory 25 H Rate Respiratory Rate [BILATERAL KNEES] Respiratory Rate [Bilateral Shoulder] Respiratory Rate [RIGHT HAND / WRIST] Blood Pressure 86/54 O2 Sat by Pulse 100 Oximetry Constitutional: lethargic Eyes: non-icteric ENT: oropharynx dry Neck: supple, no lymphadenopathy Effort: mildly labored Ascultation: Bilateral: clear, diminished breath sounds Cardiovascular: irregular rhythm Gastrointestinal: normoactive bowel sounds, soft, non-tender, non-distended Integumentary: normal Extremities: no cyanosis, pulses normal, no ischemia or petechiae, edema Neurologic: non-focal exam (grossly) Psychiatric: other (unable to assess) CBC and BMP: 10/18/16 05:00 10/18/16 05:00 ABG, PT/INR, D-dimer: ABG POC ABG pH 7.466 (7.35-7.45) H 10/18/16 05:15 POC ABG pCO2 25.1 (35-45) L 10/18/16 05:15 POC ABG pO2 87 (80-105) 10/18/16 05:15 POC ABG HCO3 18.1 10/18/16 05:15 POC ABG Total CO2 19 10/18/16 05:15 POC ABG O2 Sat 97 10/18/16 05:15 PT/INR, D-dimer PT 28.9 Sec. (12.2-14.9) H 10/14/16 21:25 INR 2.71 (0.87-1.13) H 10/14/16 21:25 Abnormal lab findings: Abnormal Labs 10/13/16 10/13/16 10/13/16 14:50 21:40 22:05 WBC RBC Hgb Hct MCV MCHC RDW Plt Count Seg Neuts % (Manual) Lymphocytes % (Manual) Nucleated RBC % Seg Neutrophils # Man Lymphocytes # (Manual) Haptoglobin PT INR Fibrinogen Lupus Anticoagulant LA PTT Baseline POC ABG pH POC ABG pCO2 POC ABG pO2 Sodium Potassium Chloride Carbon Dioxide BUN Creatinine Glucose POC Glucose 52 L 43 L Lactic Acid Uric Acid Calcium Phosphorus Iron TIBC Ferritin Total Bilirubin Direct Bilirubin Lactate Dehydrogenase C-Reactive Protein Serum Total Protein 5.6 L Albumin 2.2 L Nugvr-9-Snhcroenf 0.5 H Abnorm Protein Band 1 1.4 H PEP Interpretation see below H Crossmatch 10/13/16 10/14/16 10/14/16 23:18 03:00 03:00 WBC RBC Hgb Hct MCV MCHC RDW Plt Count Seg Neuts % (Manual) Lymphocytes % (Manual) Nucleated RBC % Seg Neutrophils # Man Lymphocytes # (Manual) Haptoglobin PT INR Fibrinogen Lupus Anticoagulant see below H LA PTT Baseline 55 H POC ABG pH POC ABG pCO2 POC ABG pO2 Sodium Potassium Chloride Carbon Dioxide BUN Creatinine Glucose POC Glucose 113 H Lactic Acid Uric Acid Calcium Phosphorus Iron TIBC Ferritin Total Bilirubin Direct Bilirubin Lactate Dehydrogenase 406 H C-Reactive Protein Serum Total Protein Albumin Yudvt-9-Iamldxubn Abnorm Protein Band 1 PEP Interpretation Crossmatch 10/14/16 10/14/16 10/14/16 03:00 03:00 04:34 WBC 1.3 L* RBC 2.33 L Hgb 7.3 L Hct 21.7 L MCV MCHC RDW 19.8 H Plt Count 99 L Seg Neuts % (Manual) Lymphocytes % (Manual) 3.0 L Nucleated RBC % Seg Neutrophils # Man 0.9 L Lymphocytes # (Manual) 0.0 L Haptoglobin PT INR Fibrinogen Lupus Anticoagulant LA PTT Baseline POC ABG pH POC ABG pCO2 POC ABG pO2 Sodium Potassium Chloride Carbon Dioxide 18 L BUN 73 H Creatinine 9.8 H Glucose 59 L POC Glucose Lactic Acid Uric Acid 8.0 H Calcium 8.2 L Phosphorus 6.60 H Iron 13 L TIBC 160 L Ferritin Total Bilirubin Direct Bilirubin Lactate Dehydrogenase C-Reactive Protein Serum Total Protein Albumin Blfxe-2-Eytoeewoj Abnorm Protein Band 1 PEP Interpretation Crossmatch 10/14/16 10/14/16 10/14/16 05:27 06:29 07:34 WBC RBC Hgb Hct MCV MCHC RDW Plt Count Seg Neuts % (Manual) Lymphocytes % (Manual) Nucleated RBC % Seg Neutrophils # Man Lymphocytes # (Manual) Haptoglobin PT INR Fibrinogen Lupus Anticoagulant LA PTT Baseline POC ABG pH POC ABG pCO2 POC ABG pO2 Sodium Potassium Chloride Carbon Dioxide BUN Creatinine Glucose POC Glucose < 40 L 63 L < 40 L Lactic Acid Uric Acid Calcium Phosphorus Iron TIBC Ferritin Total Bilirubin Direct Bilirubin Lactate Dehydrogenase C-Reactive Protein Serum Total Protein Albumin Hsmnq-6-Bbbhjjyww Abnorm Protein Band 1 PEP Interpretation Crossmatch 10/14/16 10/14/16 10/14/16 09:58 09:58 09:58 WBC RBC Hgb Hct MCV MCHC RDW Plt Count Seg Neuts % (Manual) Lymphocytes % (Manual) Nucleated RBC % Seg Neutrophils # Man Lymphocytes # (Manual) Haptoglobin 218 H PT INR Fibrinogen 557 H Lupus Anticoagulant LA PTT Baseline POC ABG pH POC ABG pCO2 POC ABG pO2 Sodium Potassium Chloride Carbon Dioxide BUN Creatinine Glucose POC Glucose Lactic Acid Uric Acid Calcium Phosphorus Iron TIBC Ferritin Total Bilirubin 1.30 H Direct Bilirubin 1.1 H Lactate Dehydrogenase C-Reactive Protein Serum Total Protein Albumin Wzuqs-4-Zwatkruev Abnorm Protein Band 1 PEP Interpretation Crossmatch 10/14/16 10/14/16 10/14/16 10:57 11:15 12:52 WBC RBC Hgb Hct MCV MCHC RDW Plt Count Seg Neuts % (Manual) Lymphocytes % (Manual) Nucleated RBC % Seg Neutrophils # Man Lymphocytes # (Manual) Haptoglobin PT INR Fibrinogen Lupus Anticoagulant LA PTT Baseline POC ABG pH POC ABG pCO2 POC ABG pO2 Sodium Potassium Chloride Carbon Dioxide BUN Creatinine Glucose POC Glucose < 40 L < 40 L Lactic Acid 9.60 H* Uric Acid Calcium Phosphorus Iron TIBC Ferritin Total Bilirubin Direct Bilirubin Lactate Dehydrogenase C-Reactive Protein Serum Total Protein Albumin Rqcpm-1-Pqjsbvsvh Abnorm Protein Band 1 PEP Interpretation Crossmatch 10/14/16 10/14/16 10/14/16 12:52 13:17 14:12 WBC RBC Hgb Hct MCV MCHC RDW Plt Count Seg Neuts % (Manual) Lymphocytes % (Manual) Nucleated RBC % Seg Neutrophils # Man Lymphocytes # (Manual) Haptoglobin PT INR Fibrinogen Lupus Anticoagulant LA PTT Baseline POC ABG pH POC ABG pCO2 POC ABG pO2 Sodium Potassium Chloride Carbon Dioxide BUN Creatinine Glucose POC Glucose < 40 L < 40 L Lactic Acid Uric Acid Calcium Phosphorus Iron TIBC Ferritin Total Bilirubin Direct Bilirubin Lactate Dehydrogenase C-Reactive Protein 40.40 H Serum Total Protein Albumin Tjhoc-5-Yuclryqcu Abnorm Protein Band 1 PEP Interpretation Crossmatch 10/14/16 10/14/16 10/14/16 15:02 15:33 15:33 WBC RBC Hgb Hct MCV MCHC RDW Plt Count Seg Neuts % (Manual) Lymphocytes % (Manual) Nucleated RBC % Seg Neutrophils # Man Lymphocytes # (Manual) Haptoglobin PT INR Fibrinogen Lupus Anticoagulant LA PTT Baseline POC ABG pH POC ABG pCO2 POC ABG pO2 Sodium Potassium Chloride Carbon Dioxide BUN Creatinine Glucose 19 L* POC Glucose < 40 L Lactic Acid 11.60 H* Uric Acid Calcium Phosphorus Iron TIBC Ferritin Total Bilirubin Direct Bilirubin Lactate Dehydrogenase C-Reactive Protein Serum Total Protein Albumin Tgswy-8-Jhxeqyjwg Abnorm Protein Band 1 PEP Interpretation Crossmatch 10/14/16 10/14/16 10/14/16 17:14 18:03 21:25 WBC RBC Hgb Hct MCV MCHC RDW Plt Count Seg Neuts % (Manual) Lymphocytes % (Manual) Nucleated RBC % Seg Neutrophils # Man Lymphocytes # (Manual) Haptoglobin PT 28.9 H INR 2.71 H Fibrinogen Lupus Anticoagulant LA PTT Baseline POC ABG pH POC ABG pCO2 POC ABG pO2 Sodium Potassium Chloride Carbon Dioxide BUN Creatinine Glucose POC Glucose < 40 L 57 L Lactic Acid Uric Acid Calcium Phosphorus Iron TIBC Ferritin Total Bilirubin Direct Bilirubin Lactate Dehydrogenase C-Reactive Protein Serum Total Protein Albumin Bxzku-7-Wbgirpwnu Abnorm Protein Band 1 PEP Interpretation Crossmatch 10/15/16 10/15/16 10/15/16 05:32 05:35 05:35 WBC RBC 2.62 L Hgb 8.1 L Hct 25.8 L MCV 98 H D MCHC 31 L RDW 21.2 H Plt Count 61 L Seg Neuts % (Manual) 27.0 L Lymphocytes % (Manual) 10.0 L Nucleated RBC % 2.0 H Seg Neutrophils # Man Lymphocytes # (Manual) 0.8 L Haptoglobin PT INR Fibrinogen Lupus Anticoagulant LA PTT Baseline POC ABG pH POC ABG pCO2 POC ABG pO2 Sodium Potassium Chloride Carbon Dioxide BUN Creatinine Glucose POC Glucose < 40 L Lactic Acid Uric Acid Calcium Phosphorus Iron TIBC Ferritin Total Bilirubin Direct Bilirubin Lactate Dehydrogenase 3871 H C-Reactive Protein Serum Total Protein Albumin Sxvyf-7-Qbeaapwuh Abnorm Protein Band 1 PEP Interpretation Crossmatch 10/15/16 10/15/16 10/15/16 05:35 05:35 05:35 WBC RBC Hgb Hct MCV MCHC RDW Plt Count Seg Neuts % (Manual) Lymphocytes % (Manual) Nucleated RBC % Seg Neutrophils # Man Lymphocytes # (Manual) Haptoglobin PT INR Fibrinogen Lupus Anticoagulant LA PTT Baseline POC ABG pH POC ABG pCO2 POC ABG pO2 Sodium 136 L Potassium 5.3 H D Chloride 91.4 L Carbon Dioxide 6 L* D BUN 57 H Creatinine 7.1 H Glucose 11 L* POC Glucose Lactic Acid 13.60 H* Uric Acid Calcium 7.7 L Phosphorus 10.10 H D Iron TIBC 166 L Ferritin 9562.0 H Total Bilirubin Direct Bilirubin Lactate Dehydrogenase C-Reactive Protein Serum Total Protein Albumin Datlv-4-Cuvhtbkgm Abnorm Protein Band 1 PEP Interpretation Crossmatch 10/15/16 10/15/16 10/15/16 05:51 06:22 06:52 WBC RBC Hgb Hct MCV MCHC RDW Plt Count Seg Neuts % (Manual) Lymphocytes % (Manual) Nucleated RBC % Seg Neutrophils # Man Lymphocytes # (Manual) Haptoglobin PT INR Fibrinogen Lupus Anticoagulant LA PTT Baseline POC ABG pH 7.189 L POC ABG pCO2 28.9 L POC ABG pO2 Sodium Potassium Chloride Carbon Dioxide BUN Creatinine Glucose POC Glucose 59 L 111 H Lactic Acid Uric Acid Calcium Phosphorus Iron TIBC Ferritin Total Bilirubin Direct Bilirubin Lactate Dehydrogenase C-Reactive Protein Serum Total Protein Albumin Ytwmd-7-Uyqjreyhv Abnorm Protein Band 1 PEP Interpretation Crossmatch 10/15/16 10/15/16 10/15/16 08:00 09:57 11:42 WBC RBC Hgb Hct MCV MCHC RDW Plt Count Seg Neuts % (Manual) Lymphocytes % (Manual) Nucleated RBC % Seg Neutrophils # Man Lymphocytes # (Manual) Haptoglobin PT INR Fibrinogen Lupus Anticoagulant LA PTT Baseline POC ABG pH POC ABG pCO2 POC ABG pO2 Sodium Potassium Chloride Carbon Dioxide BUN Creatinine Glucose POC Glucose 63 L 143 H 203 H Lactic Acid Uric Acid Calcium Phosphorus Iron TIBC Ferritin Total Bilirubin Direct Bilirubin Lactate Dehydrogenase C-Reactive Protein Serum Total Protein Albumin Ercch-3-Scrdtxhub Abnorm Protein Band 1 PEP Interpretation Crossmatch 10/15/16 10/15/16 10/15/16 12:00 12:00 13:00 WBC RBC Hgb Hct MCV MCHC RDW Plt Count Seg Neuts % (Manual) Lymphocytes % (Manual) Nucleated RBC % Seg Neutrophils # Man Lymphocytes # (Manual) Haptoglobin <15 L PT INR Fibrinogen Lupus Anticoagulant LA PTT Baseline POC ABG pH POC ABG pCO2 POC ABG pO2 Sodium Potassium Chloride Carbon Dioxide BUN Creatinine Glucose POC Glucose 136 H Lactic Acid 16.30 H* Uric Acid Calcium Phosphorus Iron TIBC Ferritin Total Bilirubin Direct Bilirubin Lactate Dehydrogenase C-Reactive Protein Serum Total Protein Albumin Ffqkp-7-Oznytcqac Abnorm Protein Band 1 PEP Interpretation Crossmatch 10/15/16 10/15/16 10/15/16 14:06 15:15 16:23 WBC RBC Hgb Hct MCV MCHC RDW Plt Count Seg Neuts % (Manual) Lymphocytes % (Manual) Nucleated RBC % Seg Neutrophils # Man Lymphocytes # (Manual) Haptoglobin PT INR Fibrinogen Lupus Anticoagulant LA PTT Baseline POC ABG pH POC ABG pCO2 POC ABG pO2 Sodium Potassium Chloride Carbon Dioxide BUN Creatinine Glucose POC Glucose 132 H 64 L Lactic Acid 20.40 H* Uric Acid Calcium Phosphorus Iron TIBC Ferritin Total Bilirubin Direct Bilirubin Lactate Dehydrogenase C-Reactive Protein Serum Total Protein Albumin Xaroj-7-Sexwzuzct Abnorm Protein Band 1 PEP Interpretation Crossmatch 10/15/16 10/15/16 10/15/16 16:40 17:00 17:10 WBC RBC Hgb Hct MCV MCHC RDW Plt Count Seg Neuts % (Manual) Lymphocytes % (Manual) Nucleated RBC % Seg Neutrophils # Man Lymphocytes # (Manual) Haptoglobin PT INR Fibrinogen Lupus Anticoagulant LA PTT Baseline POC ABG pH 7.323 L POC ABG pCO2 25.8 L POC ABG pO2 135 H Sodium Potassium Chloride Carbon Dioxide BUN Creatinine Glucose POC Glucose 159 H Lactic Acid 20.20 H* Uric Acid Calcium Phosphorus Iron TIBC Ferritin Total Bilirubin Direct Bilirubin Lactate Dehydrogenase C-Reactive Protein Serum Total Protein Albumin Eoyhf-9-Zixklfgqk Abnorm Protein Band 1 PEP Interpretation Crossmatch 10/15/16 10/15/16 10/15/16 17:46 17:53 18:45 WBC RBC Hgb Hct MCV MCHC RDW Plt Count Seg Neuts % (Manual) Lymphocytes % (Manual) Nucleated RBC % Seg Neutrophils # Man Lymphocytes # (Manual) Haptoglobin PT INR Fibrinogen Lupus Anticoagulant LA PTT Baseline POC ABG pH POC ABG pCO2 POC ABG pO2 Sodium Potassium Chloride Carbon Dioxide BUN Creatinine Glucose POC Glucose 126 H 143 H Lactic Acid 21.40 H* Uric Acid Calcium Phosphorus Iron TIBC Ferritin Total Bilirubin Direct Bilirubin Lactate Dehydrogenase C-Reactive Protein Serum Total Protein Albumin Uaebk-1-Ggobwytmh Abnorm Protein Band 1 PEP Interpretation Crossmatch 10/15/16 10/15/16 10/16/16 20:03 22:59 00:06 WBC RBC Hgb Hct MCV MCHC RDW Plt Count Seg Neuts % (Manual) Lymphocytes % (Manual) Nucleated RBC % Seg Neutrophils # Man Lymphocytes # (Manual) Haptoglobin PT INR Fibrinogen Lupus Anticoagulant LA PTT Baseline POC ABG pH POC ABG pCO2 POC ABG pO2 Sodium Potassium Chloride Carbon Dioxide BUN Creatinine Glucose POC Glucose 66 L 53 L 126 H Lactic Acid Uric Acid Calcium Phosphorus Iron TIBC Ferritin Total Bilirubin Direct Bilirubin Lactate Dehydrogenase C-Reactive Protein Serum Total Protein Albumin Xrmzt-9-Biksqhvrt Abnorm Protein Band 1 PEP Interpretation Crossmatch 10/16/16 10/16/16 10/16/16 01:03 03:55 04:00 WBC RBC Hgb Hct MCV MCHC RDW Plt Count Seg Neuts % (Manual) Lymphocytes % (Manual) Nucleated RBC % Seg Neutrophils # Man Lymphocytes # (Manual) Haptoglobin PT INR Fibrinogen Lupus Anticoagulant LA PTT Baseline POC ABG pH POC ABG pCO2 POC ABG pO2 Sodium Potassium Chloride Carbon Dioxide BUN Creatinine Glucose POC Glucose 107 H 260 H Lactic Acid 18.00 H* Uric Acid Calcium Phosphorus Iron TIBC Ferritin Total Bilirubin Direct Bilirubin Lactate Dehydrogenase C-Reactive Protein Serum Total Protein Albumin Meheb-8-Mfpgewbas Abnorm Protein Band 1 PEP Interpretation Crossmatch 10/16/16 10/16/16 10/16/16 04:03 07:58 08:34 WBC RBC Hgb Hct MCV MCHC RDW Plt Count Seg Neuts % (Manual) Lymphocytes % (Manual) Nucleated RBC % Seg Neutrophils # Man Lymphocytes # (Manual) Haptoglobin PT INR Fibrinogen Lupus Anticoagulant LA PTT Baseline POC ABG pH 7.527 H POC ABG pCO2 32.9 L POC ABG pO2 119 H Sodium Potassium Chloride Carbon Dioxide BUN Creatinine Glucose POC Glucose 120 H 66 L Lactic Acid Uric Acid Calcium Phosphorus Iron TIBC Ferritin Total Bilirubin Direct Bilirubin Lactate Dehydrogenase C-Reactive Protein Serum Total Protein Albumin Ifwld-0-Tybmnjdsl Abnorm Protein Band 1 PEP Interpretation Crossmatch 10/16/16 10/16/16 10/16/16 09:13 10:06 10:57 WBC RBC Hgb Hct MCV MCHC RDW Plt Count Seg Neuts % (Manual) Lymphocytes % (Manual) Nucleated RBC % Seg Neutrophils # Man Lymphocytes # (Manual) Haptoglobin PT INR Fibrinogen Lupus Anticoagulant LA PTT Baseline POC ABG pH POC ABG pCO2 POC ABG pO2 Sodium Potassium Chloride Carbon Dioxide BUN Creatinine Glucose POC Glucose 147 H 137 H 140 H Lactic Acid Uric Acid Calcium Phosphorus Iron TIBC Ferritin Total Bilirubin Direct Bilirubin Lactate Dehydrogenase C-Reactive Protein Serum Total Protein Albumin Zowsp-1-Aeijjpabe Abnorm Protein Band 1 PEP Interpretation Crossmatch 10/16/16 10/16/16 10/16/16 11:15 11:15 11:15 WBC 25.8 H RBC 2.30 L Hgb 7.0 L Hct 22.3 L MCV 97 H MCHC 31 L RDW 21.2 H Plt Count 42 L Seg Neuts % (Manual) Lymphocytes % (Manual) 3.0 L Nucleated RBC % 2.0 H Seg Neutrophils # Man 11.1 H Lymphocytes # (Manual) 0.8 L Haptoglobin PT INR Fibrinogen Lupus Anticoagulant LA PTT Baseline POC ABG pH POC ABG pCO2 POC ABG pO2 Sodium Potassium Chloride 81.7 L Carbon Dioxide 13 L D BUN 61 H Creatinine 6.2 H Glucose 171 H POC Glucose Lactic Acid 22.70 H* Uric Acid Calcium 7.1 L Phosphorus 9.10 H Iron TIBC Ferritin Total Bilirubin Direct Bilirubin Lactate Dehydrogenase C-Reactive Protein Serum Total Protein Albumin Nryjm-6-Pfsjrsapz Abnorm Protein Band 1 PEP Interpretation Crossmatch 10/16/16 10/16/16 10/16/16 15:10 15:50 18:11 WBC RBC Hgb Hct MCV MCHC RDW Plt Count Seg Neuts % (Manual) Lymphocytes % (Manual) Nucleated RBC % Seg Neutrophils # Man Lymphocytes # (Manual) Haptoglobin PT INR Fibrinogen Lupus Anticoagulant LA PTT Baseline POC ABG pH POC ABG pCO2 POC ABG pO2 Sodium Potassium Chloride Carbon Dioxide BUN Creatinine Glucose POC Glucose 47 L 164 H 58 L Lactic Acid Uric Acid Calcium Phosphorus Iron TIBC Ferritin Total Bilirubin Direct Bilirubin Lactate Dehydrogenase C-Reactive Protein Serum Total Protein Albumin Ozlju-3-Oitswgjsa Abnorm Protein Band 1 PEP Interpretation Crossmatch 10/16/16 10/16/16 10/17/16 18:26 21:06 00:06 WBC RBC Hgb Hct MCV MCHC RDW Plt Count Seg Neuts % (Manual) Lymphocytes % (Manual) Nucleated RBC % Seg Neutrophils # Man Lymphocytes # (Manual) Haptoglobin PT INR Fibrinogen Lupus Anticoagulant LA PTT Baseline POC ABG pH POC ABG pCO2 POC ABG pO2 489 H Sodium Potassium Chloride Carbon Dioxide BUN Creatinine Glucose POC Glucose 52 L 120 H Lactic Acid Uric Acid Calcium Phosphorus Iron TIBC Ferritin Total Bilirubin Direct Bilirubin Lactate Dehydrogenase C-Reactive Protein Serum Total Protein Albumin Ydrmf-3-Wyjejdins Abnorm Protein Band 1 PEP Interpretation Crossmatch 10/17/16 10/17/16 10/17/16 04:55 04:55 05:04 WBC 25.5 H RBC 2.23 L Hgb 6.6 L Hct 21.2 L MCV 95 H MCHC 31 L RDW 20.5 H Plt Count 35 L Seg Neuts % (Manual) 79.0 H Lymphocytes % (Manual) 0 L Nucleated RBC % Seg Neutrophils # Man 20.1 H Lymphocytes # (Manual) 0.0 L Haptoglobin PT INR Fibrinogen Lupus Anticoagulant LA PTT Baseline POC ABG pH POC ABG pCO2 27.2 L POC ABG pO2 162 H Sodium Potassium Chloride 91.5 L Carbon Dioxide 16 L BUN 45 H Creatinine 4.5 H Glucose 103 H POC Glucose Lactic Acid Uric Acid Calcium 6.9 L Phosphorus 5.80 H D Iron TIBC Ferritin Total Bilirubin Direct Bilirubin Lactate Dehydrogenase C-Reactive Protein Serum Total Protein Albumin Smiba-4-Bywlsatlp Abnorm Protein Band 1 PEP Interpretation Crossmatch 10/17/16 10/17/16 10/17/16 07:59 09:04 10:04 WBC RBC Hgb Hct MCV MCHC RDW Plt Count Seg Neuts % (Manual) Lymphocytes % (Manual) Nucleated RBC % Seg Neutrophils # Man Lymphocytes # (Manual) Haptoglobin PT INR Fibrinogen Lupus Anticoagulant LA PTT Baseline POC ABG pH POC ABG pCO2 POC ABG pO2 Sodium Potassium Chloride Carbon Dioxide BUN Creatinine Glucose POC Glucose 65 L 118 H Lactic Acid Uric Acid Calcium Phosphorus Iron TIBC Ferritin Total Bilirubin Direct Bilirubin Lactate Dehydrogenase C-Reactive Protein Serum Total Protein Albumin Hzomu-6-Rabkjcvhq Abnorm Protein Band 1 PEP Interpretation Crossmatch See Detail 10/17/16 10/17/16 10/17/16 11:52 13:08 15:42 WBC RBC Hgb Hct MCV MCHC RDW Plt Count Seg Neuts % (Manual) Lymphocytes % (Manual) Nucleated RBC % Seg Neutrophils # Man Lymphocytes # (Manual) Haptoglobin PT INR Fibrinogen Lupus Anticoagulant LA PTT Baseline POC ABG pH POC ABG pCO2 POC ABG pO2 Sodium Potassium Chloride Carbon Dioxide BUN Creatinine Glucose POC Glucose 125 H 106 H 55 L Lactic Acid Uric Acid Calcium Phosphorus Iron TIBC Ferritin Total Bilirubin Direct Bilirubin Lactate Dehydrogenase C-Reactive Protein Serum Total Protein Albumin Pjsjk-0-Dypporhyz Abnorm Protein Band 1 PEP Interpretation Crossmatch 10/17/16 10/17/16 10/17/16 17:39 20:37 21:02 WBC RBC Hgb Hct MCV MCHC RDW Plt Count Seg Neuts % (Manual) Lymphocytes % (Manual) Nucleated RBC % Seg Neutrophils # Man Lymphocytes # (Manual) Haptoglobin PT INR Fibrinogen Lupus Anticoagulant LA PTT Baseline POC ABG pH POC ABG pCO2 28.2 L POC ABG pO2 Sodium Potassium Chloride Carbon Dioxide BUN Creatinine Glucose POC Glucose < 40 L 106 H Lactic Acid Uric Acid Calcium Phosphorus Iron TIBC Ferritin Total Bilirubin Direct Bilirubin Lactate Dehydrogenase C-Reactive Protein Serum Total Protein Albumin Ixexo-6-Dilvvodbz Abnorm Protein Band 1 PEP Interpretation Crossmatch 10/17/16 10/17/16 10/18/16 22:18 23:14 00:28 WBC RBC Hgb Hct MCV MCHC RDW Plt Count Seg Neuts % (Manual) Lymphocytes % (Manual) Nucleated RBC % Seg Neutrophils # Man Lymphocytes # (Manual) Haptoglobin PT INR Fibrinogen Lupus Anticoagulant LA PTT Baseline POC ABG pH POC ABG pCO2 POC ABG pO2 Sodium Potassium Chloride Carbon Dioxide BUN Creatinine Glucose POC Glucose 111 H 118 H 112 H Lactic Acid Uric Acid Calcium Phosphorus Iron TIBC Ferritin Total Bilirubin Direct Bilirubin Lactate Dehydrogenase C-Reactive Protein Serum Total Protein Albumin Scncp-4-Zokhxxvpv Abnorm Protein Band 1 PEP Interpretation Crossmatch 10/18/16 10/18/16 10/18/16 05:00 05:00 05:15 WBC 27.3 H RBC 2.75 L Hgb 7.9 L Hct 25.3 L MCV MCHC 31 L RDW 20.7 H Plt Count 31 L Seg Neuts % (Manual) 87.0 H Lymphocytes % (Manual) 1.0 L Nucleated RBC % 1.0 H Seg Neutrophils # Man 23.8 H Lymphocytes # (Manual) 0.3 L Haptoglobin PT INR Fibrinogen Lupus Anticoagulant LA PTT Baseline POC ABG pH 7.466 H POC ABG pCO2 25.1 L POC ABG pO2 Sodium Potassium Chloride 88.7 L Carbon Dioxide 18 L BUN 66 H Creatinine 4.7 H Glucose POC Glucose Lactic Acid Uric Acid Calcium 6.1 L Phosphorus 7.30 H D Iron TIBC Ferritin Total Bilirubin Direct Bilirubin Lactate Dehydrogenase C-Reactive Protein Serum Total Protein Albumin Mjaxy-6-Bjcphblzh Abnorm Protein Band 1 PEP Interpretation Crossmatch 10/18/16 10/18/16 10/18/16 07:15 07:44 09:07 WBC RBC Hgb Hct MCV MCHC RDW Plt Count Seg Neuts % (Manual) Lymphocytes % (Manual) Nucleated RBC % Seg Neutrophils # Man Lymphocytes # (Manual) Haptoglobin PT INR Fibrinogen Lupus Anticoagulant LA PTT Baseline POC ABG pH POC ABG pCO2 POC ABG pO2 Sodium Potassium Chloride Carbon Dioxide BUN Creatinine Glucose POC Glucose 64 L 156 H 117 H Lactic Acid Uric Acid Calcium Phosphorus Iron TIBC Ferritin Total Bilirubin Direct Bilirubin Lactate Dehydrogenase C-Reactive Protein Serum Total Protein Albumin Kvthb-2-Qymthffuv Abnorm Protein Band 1 PEP Interpretation Crossmatch 10/18/16 09:15 WBC RBC Hgb Hct MCV MCHC RDW Plt Count Seg Neuts % (Manual) Lymphocytes % (Manual) Nucleated RBC % Seg Neutrophils # Man Lymphocytes # (Manual) Haptoglobin PT INR Fibrinogen Lupus Anticoagulant LA PTT Baseline POC ABG pH POC ABG pCO2 POC ABG pO2 Sodium Potassium Chloride Carbon Dioxide BUN Creatinine Glucose POC Glucose Lactic Acid 14.30 H* Uric Acid Calcium Phosphorus Iron TIBC Ferritin Total Bilirubin Direct Bilirubin Lactate Dehydrogenase C-Reactive Protein Serum Total Protein Albumin Ahyqm-5-Kbgyyaang Abnorm Protein Band 1 PEP Interpretation Crossmatch Allied health notes reviewed: RT ED Critical Care Note - Critical Care Note Total Time (mins): 45 Critical care time in (mins) excluding proc time.: 45 Critical care attestation.: If time is entered above; I have spent that time in minutes in the direct care of this critically ill patient, excluding procedure time.
--- NOTE | 2016-10-18 11:40 | Progress Note ---
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 Acute respiratory failure - intubated. Sepsis / beta hemolitic strep bacterimia / leukocytosis Paroxysmal atrial fibrillation with variable ventricular response --> SR Acute metabolic encephalopathy ARF on CKD - requiring HD Profound metabolic acidemia/lactic acidosis Anemia / thrombocytopenia Plan: Cont amio gtt and convert to PO amio once pt is tolerating intake per DHT - had bout of vomiting overnight and tube feed currently held. Given anemia and thrombocytopenia, would defer systemic anticoagulation for now. Consider JONATHAN if blood cultures remain positive to r/o endocarditis. Consider ischemic evaluation when medically stabilized. No ACEI/ARB in setting of ARF on CKD. No BB in setting of hypotension. Watch volume status closely Poor prognosis. The patient has been seen in conjunction with Dr. Vargas who agrees with the assessment and plan of care. Subjective Date of service: 10/18/16 Principal diagnosis: Sepsis Syndrome; MAHA; RAJESH; CHF Interval history: Pt remains overnight, off sedation, nonresponsive. On levophed and amio gtts. Currently in SR. No family at bedside. Objective Last Vital Signs Temp 100.1 F H 10/18/16 10:30 Pulse 68 10/18/16 11:24 Resp 25 H 10/18/16 10:30 BP 114/81 10/18/16 11:24 Pulse Ox 100 10/18/16 10:30 - Physical Examination General: Other (intubated; nonresponsive ) Neck: Positive: neck supple, trachea midline Cardiac: Positive: Reg Rate and Rhythm, S1/S2 Lungs: Positive: Decreased Breath Sounds, Oxygen, Ventilated Respirations Neuro: Positive: Other (intubated; nonresponsive ) Abdomen: Positive: Soft, Active Bowel Sounds Skin: Positive: Clear. Negative: Rash, Wound Musculoskeletal: No Fluid Collection, No Pain, Normal Range of Motion Extremities: Present: upper extr. pulses, lower extr. pulses. Absent: edema - Labs and Meds CBC 10/18/16 Range/Units 05:00 WBC 27.3 H (4.5-11.0) K/mm3 RBC 2.75 L (3.65-5.03) M/mm3 Hgb 7.9 L (11.8-15.2) gm/dl Hct 25.3 L (35.5-45.6) % Plt Count 31 L (140-440) K/mm3 Comprehensive Metabolic Panel 10/18/16 Range/Units 05:00 Sodium 140 (137-145) mmol/L Potassium 4.4 (3.6-5.0) mmol/L Chloride 88.7 L (98-107) mmol/L Carbon Dioxide 18 L (22-30) mmol/L BUN 66 H (9-20) mg/dL Creatinine 4.7 H (0.8-1.5) mg/dL Glucose 92 (75-100) mg/dL Calcium 6.1 L (8.4-10.2) mg/dL - Imaging and Cardiology EKG: report reviewed, image reviewed Echo: report reviewed - Telemetry EKG Rhythm: Sinus Rhythm - Allied health notes Allied health notes reviewed: RT
[2016-10-18] MEDS ORDERED: NACL 0.9% 1000 ML 2,000 ML ONE (12:13)
--- NOTE | 2016-10-18 12:15 | Progress Note ---
Assessment and Plan - Patient Problems (1) Sepsis Current Visit: Yes Status: Acute Qualifiers: Sepsis type: Streptococcus group B Qualified Code(s): A40.1 - Sepsis due to streptococcus, group B Plan to address problem: 1. Continue current antimicrobials. 2. Vancomycin level sub-therapeutic. Re-dosed. Pharmacy assistance is appreciated. Subjective Date of service: 10/18/16 Principal diagnosis: Sepsis Syndrome; MAHA; RAJESH; CHF Interval history: Remains critically ill in ICU. No new clinical events. Objective - Exam Narrative Exam: intubated, FiO2 25% - Constitutional Vitals: Vital Signs Temp Pulse Resp BP Pulse Ox 100.1 F H 68 25 H 126/93 100 10/18/16 10:30 10/18/16 11:45 10/18/16 10:30 10/18/16 11:45 10/18/16 10:30 Temperature -Last 24 Hours Temperature 100.1 F Temperature 99.8 F Temperature 98.9 F Temperature 98.9 F Temperature 98.8 F Temperature 98.7 F Temperature 98.9 F Temperature 98.9 F - EENT Eyes: no conjunctival injection ENT: other (Dobhoff and ET tubes in place) - Neck Neck: other (right IJ vascath) - Respiratory Respiratory: bilateral: CTA, negative: rales, wheezing - Cardiovascular Rhythm: regular Heart Sounds: Present: S1 & S2 Extremities: No edema - Gastrointestinal General gastrointestinal: Present: soft, non-distended - Integumentary Integumentary: erythema (unchanged patchy erythema/ purpura), no rash - Neurologic Neurologic: other (minimally responsive) - Additional findings Additional findings: PICC right arm - Labs CBC & Chem 7: 10/18/16 05:00 10/18/16 05:00 Labs: Abnormal lab results 10/15/16 10/17/16 10/17/16 Range/Units 12:00 07:59 09:04 WBC (4.5-11.0) K/mm3 RBC (3.65-5.03) M/mm3 Hgb (11.8-15.2) gm/dl Hct (35.5-45.6) % MCHC (32-34) % RDW (13.2-15.2) % Plt Count (140-440) K/mm3 Seg Neuts % (Manual) (40.0-70.0) % Lymphocytes % (Manual) (13.4-35.0) % Nucleated RBC % (0.0-0.9) % Seg Neutrophils # Man (1.8-7.7) K/mm3 Lymphocytes # (Manual) (1.2-5.4) K/mm3 Haptoglobin <15 L (43-212) mg/dL POC ABG pH (7.35-7.45) POC ABG pCO2 (35-45) Chloride (98-107) mmol/L Carbon Dioxide (22-30) mmol/L BUN (9-20) mg/dL Creatinine (0.8-1.5) mg/dL POC Glucose 65 L (70-105) Lactic Acid (0.7-2.0) mmol/L Calcium (8.4-10.2) mg/dL Phosphorus (2.5-4.5) mg/dL Crossmatch See Detail 10/17/16 10/17/16 10/17/16 Range/Units 10:04 11:52 13:08 WBC (4.5-11.0) K/mm3 RBC (3.65-5.03) M/mm3 Hgb (11.8-15.2) gm/dl Hct (35.5-45.6) % MCHC (32-34) % RDW (13.2-15.2) % Plt Count (140-440) K/mm3 Seg Neuts % (Manual) (40.0-70.0) % Lymphocytes % (Manual) (13.4-35.0) % Nucleated RBC % (0.0-0.9) % Seg Neutrophils # Man (1.8-7.7) K/mm3 Lymphocytes # (Manual) (1.2-5.4) K/mm3 Haptoglobin (43-212) mg/dL POC ABG pH (7.35-7.45) POC ABG pCO2 (35-45) Chloride (98-107) mmol/L Carbon Dioxide (22-30) mmol/L BUN (9-20) mg/dL Creatinine (0.8-1.5) mg/dL POC Glucose 118 H 125 H 106 H (70-105) Lactic Acid (0.7-2.0) mmol/L Calcium (8.4-10.2) mg/dL Phosphorus (2.5-4.5) mg/dL Crossmatch 10/17/16 10/17/16 10/17/16 Range/Units 15:42 17:39 20:37 WBC (4.5-11.0) K/mm3 RBC (3.65-5.03) M/mm3 Hgb (11.8-15.2) gm/dl Hct (35.5-45.6) % MCHC (32-34) % RDW (13.2-15.2) % Plt Count (140-440) K/mm3 Seg Neuts % (Manual) (40.0-70.0) % Lymphocytes % (Manual) (13.4-35.0) % Nucleated RBC % (0.0-0.9) % Seg Neutrophils # Man (1.8-7.7) K/mm3 Lymphocytes # (Manual) (1.2-5.4) K/mm3 Haptoglobin (43-212) mg/dL POC ABG pH (7.35-7.45) POC ABG pCO2 28.2 L (35-45) Chloride (98-107) mmol/L Carbon Dioxide (22-30) mmol/L BUN (9-20) mg/dL Creatinine (0.8-1.5) mg/dL POC Glucose 55 L < 40 L (70-105) Lactic Acid (0.7-2.0) mmol/L Calcium (8.4-10.2) mg/dL Phosphorus (2.5-4.5) mg/dL Crossmatch 10/17/16 10/17/16 10/17/16 Range/Units 21:02 22:18 23:14 WBC (4.5-11.0) K/mm3 RBC (3.65-5.03) M/mm3 Hgb (11.8-15.2) gm/dl Hct (35.5-45.6) % MCHC (32-34) % RDW (13.2-15.2) % Plt Count (140-440) K/mm3 Seg Neuts % (Manual) (40.0-70.0) % Lymphocytes % (Manual) (13.4-35.0) % Nucleated RBC % (0.0-0.9) % Seg Neutrophils # Man (1.8-7.7) K/mm3 Lymphocytes # (Manual) (1.2-5.4) K/mm3 Haptoglobin (43-212) mg/dL POC ABG pH (7.35-7.45) POC ABG pCO2 (35-45) Chloride (98-107) mmol/L Carbon Dioxide (22-30) mmol/L BUN (9-20) mg/dL Creatinine (0.8-1.5) mg/dL POC Glucose 106 H 111 H 118 H (70-105) Lactic Acid (0.7-2.0) mmol/L Calcium (8.4-10.2) mg/dL Phosphorus (2.5-4.5) mg/dL Crossmatch 10/18/16 10/18/16 10/18/16 Range/Units 00:28 05:00 05:00 WBC 27.3 H (4.5-11.0) K/mm3 RBC 2.75 L (3.65-5.03) M/mm3 Hgb 7.9 L (11.8-15.2) gm/dl Hct 25.3 L (35.5-45.6) % MCHC 31 L (32-34) % RDW 20.7 H (13.2-15.2) % Plt Count 31 L (140-440) K/mm3 Seg Neuts % (Manual) 87.0 H (40.0-70.0) % Lymphocytes % (Manual) 1.0 L (13.4-35.0) % Nucleated RBC % 1.0 H (0.0-0.9) % Seg Neutrophils # Man 23.8 H (1.8-7.7) K/mm3 Lymphocytes # (Manual) 0.3 L (1.2-5.4) K/mm3 Haptoglobin (43-212) mg/dL POC ABG pH (7.35-7.45) POC ABG pCO2 (35-45) Chloride 88.7 L (98-107) mmol/L Carbon Dioxide 18 L (22-30) mmol/L BUN 66 H (9-20) mg/dL Creatinine 4.7 H (0.8-1.5) mg/dL POC Glucose 112 H (70-105) Lactic Acid (0.7-2.0) mmol/L Calcium 6.1 L (8.4-10.2) mg/dL Phosphorus 7.30 H D (2.5-4.5) mg/dL Crossmatch 10/18/16 10/18/16 10/18/16 Range/Units 05:15 07:15 07:44 WBC (4.5-11.0) K/mm3 RBC (3.65-5.03) M/mm3 Hgb (11.8-15.2) gm/dl Hct (35.5-45.6) % MCHC (32-34) % RDW (13.2-15.2) % Plt Count (140-440) K/mm3 Seg Neuts % (Manual) (40.0-70.0) % Lymphocytes % (Manual) (13.4-35.0) % Nucleated RBC % (0.0-0.9) % Seg Neutrophils # Man (1.8-7.7) K/mm3 Lymphocytes # (Manual) (1.2-5.4) K/mm3 Haptoglobin (43-212) mg/dL POC ABG pH 7.466 H (7.35-7.45) POC ABG pCO2 25.1 L (35-45) Chloride (98-107) mmol/L Carbon Dioxide (22-30) mmol/L BUN (9-20) mg/dL Creatinine (0.8-1.5) mg/dL POC Glucose 64 L 156 H (70-105) Lactic Acid (0.7-2.0) mmol/L Calcium (8.4-10.2) mg/dL Phosphorus (2.5-4.5) mg/dL Crossmatch 10/18/16 10/18/16 Range/Units 09:07 09:15 WBC (4.5-11.0) K/mm3 RBC (3.65-5.03) M/mm3 Hgb (11.8-15.2) gm/dl Hct (35.5-45.6) % MCHC (32-34) % RDW (13.2-15.2) % Plt Count (140-440) K/mm3 Seg Neuts % (Manual) (40.0-70.0) % Lymphocytes % (Manual) (13.4-35.0) % Nucleated RBC % (0.0-0.9) % Seg Neutrophils # Man (1.8-7.7) K/mm3 Lymphocytes # (Manual) (1.2-5.4) K/mm3 Haptoglobin (43-212) mg/dL POC ABG pH (7.35-7.45) POC ABG pCO2 (35-45) Chloride (98-107) mmol/L Carbon Dioxide (22-30) mmol/L BUN (9-20) mg/dL Creatinine (0.8-1.5) mg/dL POC Glucose 117 H (70-105) Lactic Acid 14.30 H* (0.7-2.0) mmol/L Calcium (8.4-10.2) mg/dL Phosphorus (2.5-4.5) mg/dL Crossmatch Vancomycin level = 6.2 Microbiology 10/16/16 21:00 Tracheal Aspirate Sputum Culture - Final Sara Albicans 10/16/16 21:15 Peripheral/Venous Blood Culture - Preliminary NO GROWTH AFTER 24 HOURS 10/16/16 20:30 Peripheral/Venous Blood Culture - Preliminary NO GROWTH AFTER 24 HOURS 10/14/16 16:15 Peripheral/Venous Blood Culture - Preliminary Beta Hemolytic Strep Group B 10/14/16 15:33 Peripheral/Venous Blood Culture - Preliminary Beta Hemolytic Strep Group B Active Medications Acetaminophen (Tylenol) 650 mg PO Q6H PRN PRN Reason: pain Last Admin: 10/14/16 21:13 Dose: 650 mg Acetaminophen (Tylenol) 1,000 mg NC Q4H PRN PRN Reason: Pain, Mild (1-3) Last Admin: 10/17/16 18:15 Dose: 1,000 mg Lipase/Protease/Amylase (Pancreaze Dr 10,500 Unit) 1 each FEEDTUBE PRN PRN PRN Reason: For Clogged Feeding Tube Dexamethasone (Decadron) 4 mg IV Q8H [facility] Last Admin: 10/18/16 05:24 Dose: 4 mg Dextrose (D50w (25gm)) 25 ml IV PRN PRN PRN Reason: Hypoglycemia Last Admin: 10/18/16 07:20 Dose: 25 ml Diphenhydramine HCl (Benadryl) 50 mg IV Q6H PRN PRN Reason: Itching Last Admin: 10/17/16 18:30 Dose: 50 mg Famotidine (Pepcid) 20 mg IV Q24H [facility] Last Admin: 10/17/16 21:14 Dose: 20 mg Haloperidol Lactate (Haldol) 5 mg IM Q6H PRN PRN Reason: Agitation Last Admin: 10/14/16 21:11 Dose: 5 mg Heparin Sodium (Porcine) (Heparin) 10,000 unit IV ROD PRN PRN Reason: for plasmapheresis- vascath Hydrophilic Ointment (Vaseline Lip Therapy) 1 applic TP Q2H PRN PRN Reason: Dry Lips Sodium Chloride (Nacl 0.9%) 100 mls @ 999 mls/hr IV ROD PRN PRN Reason: Hypotension Sodium Chloride (Nacl 0.9%) 100 mls @ 999 mls/hr IV ROD PRN PRN Reason: Hypotension Sodium Chloride (Nacl 0.9%) 100 mls @ 999 mls/hr IV ROD PRN PRN Reason: Hypotension Amiodarone HCl 900 mg/ (Dextrose) 500 mls @ 33.33 mls/hr IV DIRECT EDWINA; 1 MG /MIN PRN Reason: Protocol Last Admin: 10/18/16 07:33 Dose: 1 mg/min, 33.33 mls/hr Clindamycin HCl (Cleocin 900 Mg/50 Ml) 900 mg in 50 mls @ 100 mls/hr IV Q8H EDWINA PRN Reason: Protocol Last Admin: 10/18/16 05:00 Dose: 100 mls/hr Norepinephrine (Levophed Drip 4 Mg/Ns 250 Ml) 4 mg in 250 mls @ 7.5 mls/hr IV TITR EDWINA; 2 MCG/MIN PRN Reason: Protocol Last Titration: 10/18/16 08:34 Dose: 8 mcg/min, 30 mls/hr Propofol (Diprivan 10 Mg/Ml) 1,000 mg in 100 mls @ 1.827 mls/hr IV TITR EDWINA; 5 MCG/KG/MIN PRN Reason: Protocol Fentanyl Citrate (Fentanyl Drip Premix) 2,000 mcg in 100 mls @ 3.045 mls/hr IV TITR EDWINA; 1 MCG/KG/HR PRN Reason: Protocol Dextrose/Sodium Chloride (D5/0.45ns) 1,000 mls @ 75 mls/hr IV DIRECT EDWINA Multi-Ingred Cream/Lotion/Oil/Oint (Artificial Tears Ophth Oint) 1 applic OU Q4H PRN PRN Reason: Dry Eye(s) Ondansetron HCl (Zofran) 4 mg IV Q8H PRN PRN Reason: Nausea And Vomiting Simple Syrup (Simple Syrup) 15 ml FEEDTUBE PRN PRN PRN Reason: Hypoglycemia Simple Syrup (Simple Syrup) 30 ml FEEDTUBE PRN PRN PRN Reason: Hypoglycemia Sodium Bicarbonate (Sodium Bicarbonate) 325 mg FEEDTUBE PRN PRN PRN Reason: For Clogged Feeding Tube Sodium Chloride (Sodium Chloride Flush Syringe 10 Ml) 10 ml IV PRN PRN PRN Reason: LINE FLUSH Last Admin: 10/17/16 20:45 Dose: 10 ml Vancomycin HCl (Vancomycin Pharmacy To Dose) 1 each IV PKCONSULT EDWINA PRN Reason: Protocol - Imaging and cardiology Chest x-ray: report reviewed (clear without evidence of pneumonia)
[2016-10-18] MEDS ORDERED: CALCIUM GLUCONATE 1,000 MG in NACL 0.9% 100 ML IV ONE (12:23)
[2016-10-18] MEDS ORDERED: CATHFLO IV ONE (12:24)
[2016-10-18] MEDS ORDERED: WATER FOR INJ (PF) 10 ML ONE (13:02)
[2016-10-18] MEDS: D5/0.45NS 1,000 ML IV SCH (13:16)
[2016-10-18] MEDS: LEVOPHED DRIP 4 MG/NS 250 ML 4 MG/250 ML BAG IV SCH (14:28)
[2016-10-18] MEDS: TYLENOL PO PRN (14:29)
[2016-10-18] MEDS: BENADRYL IV PRN (14:29)
--- NOTE | 2016-10-18 17:08 | Progress Note ---
Assessment and Plan Assessment and plan: Patient is a 61-year-old man with no significant past medical history presented to the emergency department complaining of bilateral leg swelling that worsened for the last 4 days. He was found to have severe metabolic acidosis, creatinine was 14.5 with hyperkalemia. he was found have severe pancytopenia and thrombocytopenia. Emergent Hemodialysis was set up. -Acute encephalopathy, not sedated, will consult Neurology. -AFIB WITH RVR: Cardiology is following -beta hemolitic strep BACTERIMIA: JONATHAN pending -Acute Respiratory failure with hypoxia, intubated: continue mv -Pancytopenia [leukopenia, severe anemia, Woresening thrombocytopenia] POSSIBLE LYMPHOMA, ?DIC: heme/onc is following, on PLASMAPHERSIS, s/p PRBC transfusion -ARF/End-stage renal disease -secondary coagulopathy -Lactic acidosis -Probable TTP, HUS, Amyloidosis -persistent hypoglycemia: on D10 -Acute systolic congestive heart failure EF around 30% -SEVERE SEPSIS, poa History Interval history: Patient seen and examined. Follow up on respiratory failure, patient still intubated. Overnight uneventful. No cp, sob, n/v or severe headaches. Imaging, old records, testing, labs, nursing notes reviewed. Hospitalist Physical - Physical exam Narrative exam: GEN: Critically ill intubated but not sedated HEENT: Eyes are floating, ET tube in place CVS: irregular, NORMAL S1S2 LUNGS/CHEST: NORMAL CHEST EXPANSION B, GOOD AIR ENTRY B ABD: SOFT, POSITIVE BOWEL SOUNDS, NONDISTENDED, NO REBOUND OR GUARDING NEURO: CN 2-12 GROSSLY INTACT, he doesn't follow commands PSY: Unresponsive - Constitutional Vitals: Temp Pulse Resp BP Pulse Ox 100.1 F H 66 18 144/99 100 10/18/16 16:00 10/18/16 16:45 10/18/16 16:45 10/18/16 16:45 10/18/16 16:45 Results - Labs CBC & Chem 7: 10/18/16 05:00 10/18/16 05:00 Labs: Laboratory Last Values WBC 27.3 K/mm3 (4.5-11.0) H 10/18/16 05:00 RBC 2.75 M/mm3 (3.65-5.03) L 10/18/16 05:00 Hgb 7.9 gm/dl (11.8-15.2) L 10/18/16 05:00 Hct 25.3 % (35.5-45.6) L 10/18/16 05:00 MCV 92 fl (84-94) D 10/18/16 05:00 MCH 29 pg (28-32) 10/18/16 05:00 MCHC 31 % (32-34) L 10/18/16 05:00 RDW 20.7 % (13.2-15.2) H 10/18/16 05:00 Plt Count 31 K/mm3 (140-440) L 10/18/16 05:00 Lymph % (Auto) Commercial Installer 10/14/16 04:34 [place] % (Auto) Commercial Installer 10/14/16 04:34 Eos % (Auto) Commercial Installer 10/14/16 04:34 Baso % (Auto) Commercial Installer 10/14/16 04:34 Lymph # Commercial Installer 10/14/16 04:34 [place] # Commercial Installer 10/14/16 04:34 Eos # Commercial Installer 10/14/16 04:34 Baso # Commercial Installer 10/14/16 04:34 Add Manual Diff Complete 10/18/16 05:00 Total Counted 100 10/18/16 05:00 Seg Neutrophils % Commercial Installer 10/18/16 05:00 Seg Neuts % (Manual) 87.0 % (40.0-70.0) H 10/18/16 05:00 Band Neutrophils % 11.0 % 10/18/16 05:00 Lymphocytes % (Manual) 1.0 % (13.4-35.0) L 10/18/16 05:00 Reactive Lymphs % (Man) 0 % 10/18/16 05:00 Monocytes % (Manual) 0 % (0.0-7.3) 10/18/16 05:00 Eosinophils % (Manual) 0 % (0.0-4.3) 10/18/16 05:00 Basophils % (Manual) 0 % (0.0-1.8) 10/18/16 05:00 Metamyelocytes % 0 % 10/18/16 05:00 Myelocytes % 1.0 % 10/18/16 05:00 Promyelocytes % 0 % 10/18/16 05:00 Blast Cells % 0 % 10/18/16 05:00 Nucleated RBC % 1.0 % (0.0-0.9) H 10/18/16 05:00 Seg Neutrophils # Commercial Installer 10/14/16 04:34 Seg Neutrophils # Man 23.8 K/mm3 (1.8-7.7) H 10/18/16 05:00 Band Neutrophils # 3.0 K/mm3 10/18/16 05:00 Lymphocytes # (Manual) 0.3 K/mm3 (1.2-5.4) L 10/18/16 05:00 Abs React Lymphs (Man) 0.0 K/mm3 10/18/16 05:00 Monocytes # (Manual) 0.0 K/mm3 (0.0-0.8) 10/18/16 05:00 Eosinophils # (Manual) 0.0 K/mm3 (0.0-0.4) 10/18/16 05:00 Basophils # (Manual) 0.0 K/mm3 (0.0-0.1) 10/18/16 05:00 Metamyelocytes # 0.0 K/mm3 10/18/16 05:00 Myelocytes # 0.3 K/mm3 10/18/16 05:00 Promyelocytes # 0.0 K/mm3 10/18/16 05:00 Blast Cells # 0.0 K/mm3 10/18/16 05:00 WBC Morphology Not Reportable 10/18/16 05:00 Hypersegmented Neuts Not Reportable 10/18/16 05:00 Hyposegmented Neuts Not Reportable 10/18/16 05:00 Hypogranular Neuts Not Reportable 10/18/16 05:00 Smudge Cells Not Reportable 10/18/16 05:00 Toxic Granulation Not Reportable 10/18/16 05:00 Toxic Vacuolation Not Reportable 10/18/16 05:00 Dohle Bodies Not Reportable 10/18/16 05:00 Pelger-Huet Anomaly Not Reportable 10/18/16 05:00 Madhu Rods Not Reportable 10/18/16 05:00 Platelet Estimate Appears decreased 10/18/16 05:00 Clumped Platelets Not Reportable 10/18/16 05:00 Plt Clumps, EDTA Not Reportable 10/18/16 05:00 Large Platelets Not Reportable 10/18/16 05:00 Giant Platelets Not Reportable 10/18/16 05:00 Platelet Satelliting Not Reportable 10/18/16 05:00 Plt Morphology Comment Not Reportable 10/18/16 05:00 RBC Morphology Not Reportable 10/18/16 05:00 Dimorphic RBCs Not Reportable 10/18/16 05:00 Polychromasia Not Reportable 10/18/16 05:00 Hypochromasia 1+ 10/18/16 05:00 Poikilocytosis Not Reportable 10/18/16 05:00 Anisocytosis 1+ 10/18/16 05:00 Microcytosis Not Reportable 10/18/16 05:00 Macrocytosis Not Reportable 10/18/16 05:00 Spherocytes Not Reportable 10/18/16 05:00 Pappenheimer Bodies Not Reportable 10/18/16 05:00 Sickle Cells Not Reportable 10/18/16 05:00 Target Cells Not Reportable 10/18/16 05:00 Tear Drop Cells Not Reportable 10/18/16 05:00 Ovalocytes Not Reportable 10/18/16 05:00 Helmet Cells Not Reportable 10/18/16 05:00 [place] Bodies Not Reportable 10/18/16 05:00 [place] Rings Not Reportable 10/18/16 05:00 [place] Cells Not Reportable 10/18/16 05:00 Bite Cells Not Reportable 10/18/16 05:00 Crenated Cell Not Reportable 10/18/16 05:00 Elliptocytes Not Reportable 10/18/16 05:00 Acanthocytes (Spur) Not Reportable 10/18/16 05:00 Rouleaux Not Reportable 10/18/16 05:00 Hemoglobin C Crystals Not Reportable 10/18/16 05:00 Schistocytes Not Reportable 10/18/16 05:00 Malaria parasites Not Reportable 10/18/16 05:00 ESR 77 mm/Hr (0-20) 10/14/16 04:34 Pal Bodies Not Reportable 10/18/16 05:00 Haptoglobin <15 mg/dL (43-212) L 10/15/16 12:00 Hem Pathologist Commnt No 10/18/16 05:00 PT 28.9 Sec. (12.2-14.9) H 10/14/16 21:25 INR 2.71 (0.87-1.13) H 10/14/16 21:25 Fibrinogen 557 mg/dl (211-480) H 10/14/16 09:58 Lupus Anticoagulant see below H 10/14/16 03:00 LA PTT Baseline 55 sec (<=40) H 10/14/16 03:00 dRVVT Confirm Interp Negative (Negative) 10/14/16 03:00 POC ABG pH 7.466 (7.35-7.45) H 10/18/16 05:15 POC ABG pCO2 25.1 (35-45) L 10/18/16 05:15 POC ABG pO2 87 (80-105) 10/18/16 05:15 POC ABG HCO3 18.1 10/18/16 05:15 POC ABG Total CO2 19 10/18/16 05:15 POC ABG O2 Sat 97 10/18/16 05:15 POC ABG Base Excess -6 10/18/16 05:15 FiO2 25 % 10/18/16 05:15 Sodium 140 mmol/L (137-145) 10/18/16 05:00 Potassium 4.4 mmol/L (3.6-5.0) 10/18/16 05:00 Chloride 88.7 mmol/L (98-107) L 10/18/16 05:00 Carbon Dioxide 18 mmol/L (22-30) L 10/18/16 05:00 Anion Gap 38 mmol/L 10/18/16 05:00 BUN 66 mg/dL (9-20) H 10/18/16 05:00 Creatinine 4.7 mg/dL (0.8-1.5) H 10/18/16 05:00 Estimated GFR 13 ml/min 10/18/16 05:00 BUN/Creatinine Ratio 14.04 % 10/18/16 05:00 Glucose 92 mg/dL (75-100) 10/18/16 05:00 POC Glucose 117 (70-105) H 10/18/16 09:07 Lactic Acid 14.30 mmol/L (0.7-2.0) H* 10/18/16 09:15 Uric Acid 8.0 mg/dL (3.5-7.6) H 10/14/16 03:00 Calcium 6.1 mg/dL (8.4-10.2) L 10/18/16 05:00 Phosphorus 7.30 mg/dL (2.5-4.5) H D 10/18/16 05:00 Iron 146 ug/dL (49-181) 10/15/16 05:35 TIBC 166 mcg/dL (250-450) L 10/15/16 05:35 Ferritin 9562.0 ng/mL (13.0-400.0) H 10/15/16 05:35 Total Bilirubin 1.30 mg/dL (0.1-1.2) H 10/14/16 09:58 Direct Bilirubin 1.1 mg/dL (0-0.2) H 10/14/16 09:58 Indirect Bilirubin 0.2 mg/dL 10/14/16 09:58 AST 17 units/L (5-40) 10/13/16 10:14 ALT 24 units/L (7-56) 10/13/16 10:14 Alkaline Phosphatase 76 units/L (35-129) 10/13/16 10:14 Lactate Dehydrogenase 3871 units/L (91-180) H 10/15/16 05:35 Troponin T 0.079 ng/mL (0.00-0.029) H 10/13/16 10:14 C-Reactive Protein 40.40 mg/dL (0.00-1.30) H 10/14/16 12:52 NT-Pro-B Natriuret Pep > 36337 pg/mL (0-900) H 10/13/16 10:14 Serum Total Protein 5.6 g/dL (6.1-8.1) L 10/13/16 14:50 Total Protein 6.4 g/dL (6.3-8.2) 10/13/16 10:14 Albumin 2.2 g/dL (3.8-4.8) L 10/13/16 14:50 Albumin/Globulin Ratio 0.6 % 10/13/16 10:14 Fjxwj-6-Ltnbmeyvv 0.5 g/dL (0.2-0.3) H 10/13/16 14:50 Ddwod-3-Loutzysxe 0.6 g/dL (0.5-0.9) 10/13/16 14:50 Beta Globulins 0.3 g/dL (0.2-0.5) 10/13/16 14:50 Gamma Globulins 1.7 g/dL (0.8-1.7) 10/13/16 14:50 Abnorm Protein Band 1 1.4 g/dL H 10/13/16 14:50 PEP Interpretation see below H 10/13/16 14:50 Triglycerides 119 mg/dL (2-149) 10/13/16 10:14 Cholesterol 71 mg/dL (50-199) 10/13/16 10:14 LDL Cholesterol Direct 41 mg/dL (50-130) L 10/13/16 10:14 HDL Cholesterol 7 mg/dL (40-59) L 10/13/16 10:14 Cholesterol/HDL Ratio 10.14 % 10/13/16 10:14 Lipase 21 units/L (13-60) 10/15/16 05:35 Vitamin B12 893.9 pg/mL (211-911) 10/14/16 03:00 Random Vancomycin 6.2 ug/mL (0-40.0) 10/17/16 04:55 Proteinase 3 (PR3) Ab <1.0 AI (<1.0) 10/13/16 14:50 Myeloperoxidase Ab <1.0 AI (<1.0) 10/13/16 14:50 Glomerular Base Mem IgG <1.0 AI (<1.0) 10/13/16 14:50 Complement C3 101 mg/dL (90-180) 10/13/16 14:50 Complement C4 16 mg/dL (16-47) 10/13/16 14:50 Hep Bs Antigen Non-reactive (Negative) 10/13/16 14:50 Hepatitis C Antibody Non-reactive (NonReactive) 10/13/16 14:50 HIV 1&2 Antibody Rapid Non react (Non React) 10/13/16 14:50 HIV P24 Antigen Non react (Non React) 10/13/16 14:50 Schistocytes Smear None seen 10/15/16 12:00 Blood Type O POSITIVE 10/17/16 07:59 Antibody Screen TNR 10/17/16 07:59 MADIHA Antibody Screen Negative 10/17/16 07:59 Direct Antiglob Test Negative 10/14/16 03:00 ELAINE, Poly Interpret Negative 10/14/16 03:00 Crossmatch See Detail 10/17/16 07:59
[2016-10-18] MEDS: PEPCID IV SCH (20:20)
[2016-10-19] MEDS: DIPRIVAN 10 MG/ML 1,000 MG/100 ML BOTTLE IV SCH (02:11)
[2016-10-19] MEDS: CLEOCIN 900 MG/50 mL 900 MG/50 ML BAG IV SCH ×3 (04:46→21:21)
[2016-10-19] MEDS: DECADRON IV SCH ×3 (04:46→21:21)
[2016-10-19] MEDS: D5/0.45NS 1,000 ML IV SCH ×2 (04:54→21:21)
[2016-10-19 05:50] LABS: ISTAT Base Excess 0; ISTAT HCO3 21.5; ISTAT PCO2 22.9 (35-45); ISTAT PH 7.581 (7.35-7.45); ISTAT PO2 58 (80-105); ISTAT SO2 94; ISTAT TCO2 22
[2016-10-19] MEDS ORDERED: NACL 0.9% 500 ML 500 ML IV ONE (06:15)
[2016-10-19 07:11] LABS: Hemoglobin 7.5 gm/dl (11.8-15.2); Mean Corpuscular HGB Conc 33 % (32-34); Mean Corpuscular Hemoglobin 30 pg (28-32); Mean Corpuscular Volume 91 fl (84-94); Red Blood Count 2.54 M/mm3 (3.65-5.03)
[2016-10-19 07:14] LABS: Platelet Count 25 K/mm3 (140-440); Red Cell Distribution Width 20.7 % (13.2-15.2)
[2016-10-19] MEDS: CORDARONE 900 MG in D5W 482 ML IV SCH (07:17)
[2016-10-19] MEDS: LEVOPHED DRIP 4 MG/NS 250 ML 4 MG/250 ML BAG IV SCH ×2 (07:18→18:56)
[2016-10-19 07:29] LABS: BUN/Creatinine Ratio 17.94; Chloride 88.7 mmol/L (98-107); Phosphorous 6.3 mg/dL (2.5-4.5); Potassium 3.8 mmol/L (3.6-5.0)
--- NOTE | 2016-10-19 07:34 | XRay Report ---
AP CHEST: HISTORY: Followup respiratory failure Lines and support devices are unchanged since yesterday's exam. Mild cardiomegaly is stable. The lungs are clear. No new acute process has developed. IMPRESSION: No change.
[2016-10-19 07:36] LABS: Calcium 5.6 mg/dL (8.4-10.2)
[2016-10-19] MEDS: TYLENOL PO PRN (08:24)
[2016-10-19] MEDS: BENADRYL IV PRN (08:25)
[2016-10-19 08:53] LABS: Anisocytosis 1+; Basophils % (Manual) 0 % (0.0-1.8); Blastocytes % (Manual) 0 %; Eosinophils % (Manual) 0 % (0.0-4.3); Hypochromasia 1+; Total Cells Counted Percent 0
[2016-10-19 08:54] LABS: Diff Status Complete; Large Platelets Few; Platelet Estimate Consistent w Auto; Toxic Granulation Few
[2016-10-19] MEDS ORDERED: CALCIUM GLUCONATE 1,000 MG in NACL 0.9% 100 ML IV ONE (09:00)
--- NOTE | 2016-10-19 09:41 | Progress Note ---
Assessment and Plan - Patient Problems (1) Sepsis Current Visit: Yes Status: Acute Qualifiers: Sepsis type: Streptococcus group B Qualified Code(s): A40.1 - Sepsis due to streptococcus, group B Plan to address problem: 1. Continue current regimen. 2. Repeat blood culture remains negative. Subjective Date of service: 10/19/16 Principal diagnosis: Sepsis Syndrome; MAHA; RAJESH; CHF Interval history: Remains in ICU. Low-grade fever at 100.6 deg F. No new clinical issues. Objective - Exam Narrative Exam: intubated, FiO2 35% - Constitutional Vitals: Vital Signs Temp Pulse Resp BP Pulse Ox 100.6 F H 71 23 148/89 100 10/19/16 08:00 10/19/16 08:30 10/19/16 08:30 10/19/16 08:30 10/19/16 08:30 Temperature -Last 24 Hours Temperature 100.6 F Temperature 100.1 F Temperature 99.8 F Temperature 100.6 F Temperature 100.1 F Temperature 100.1 F - EENT Eyes: no scleral icterus, no conjunctival injection ENT: other (ET and Dobhoff tubes in place) - Respiratory Respiratory: bilateral: CTA, negative: rales, rhonchi - Cardiovascular Rhythm: regular Heart Sounds: Present: S1 & S2 Extremities: No edema Extremity abnormal: erythema, other (ecchymoses over both feet and patchy along limbs) - Gastrointestinal General gastrointestinal: Present: soft, non-distended - Integumentary Integumentary: warm, no rash - Neurologic Neurologic: other (sedated) - Additional findings Additional findings: right IJ dialysis catheter - Labs CBC & Chem 7: 10/19/16 06:00 10/19/16 06:00 Labs: Abnormal lab results 10/17/16 10/18/16 10/18/16 Range/Units 07:59 09:15 14:00 WBC (4.5-11.0) K/mm3 RBC (3.65-5.03) M/mm3 Hgb (11.8-15.2) gm/dl Hct (35.5-45.6) % RDW (13.2-15.2) % Plt Count (140-440) K/mm3 Seg Neuts % (Manual) (40.0-70.0) % Lymphocytes % (Manual) (13.4-35.0) % Nucleated RBC % (0.0-0.9) % Seg Neutrophils # Man (1.8-7.7) K/mm3 Lymphocytes # (Manual) (1.2-5.4) K/mm3 POC ABG pH (7.35-7.45) POC ABG pCO2 (35-45) POC ABG pO2 (80-105) Chloride (98-107) mmol/L Carbon Dioxide (22-30) mmol/L BUN (9-20) mg/dL Creatinine (0.8-1.5) mg/dL Glucose (75-100) mg/dL POC Glucose 106 H (70-105) Lactic Acid 14.30 H* (0.7-2.0) mmol/L Calcium (8.4-10.2) mg/dL Phosphorus (2.5-4.5) mg/dL Crossmatch See Detail 10/18/16 10/18/16 10/18/16 Range/Units 18:21 19:58 20:55 WBC (4.5-11.0) K/mm3 RBC (3.65-5.03) M/mm3 Hgb (11.8-15.2) gm/dl Hct (35.5-45.6) % RDW (13.2-15.2) % Plt Count (140-440) K/mm3 Seg Neuts % (Manual) (40.0-70.0) % Lymphocytes % (Manual) (13.4-35.0) % Nucleated RBC % (0.0-0.9) % Seg Neutrophils # Man (1.8-7.7) K/mm3 Lymphocytes # (Manual) (1.2-5.4) K/mm3 POC ABG pH (7.35-7.45) POC ABG pCO2 (35-45) POC ABG pO2 (80-105) Chloride (98-107) mmol/L Carbon Dioxide (22-30) mmol/L BUN (9-20) mg/dL Creatinine (0.8-1.5) mg/dL Glucose (75-100) mg/dL POC Glucose 112 H 127 H 125 H (70-105) Lactic Acid (0.7-2.0) mmol/L Calcium (8.4-10.2) mg/dL Phosphorus (2.5-4.5) mg/dL Crossmatch 10/18/16 10/18/16 10/18/16 Range/Units 22:11 23:11 23:57 WBC (4.5-11.0) K/mm3 RBC (3.65-5.03) M/mm3 Hgb (11.8-15.2) gm/dl Hct (35.5-45.6) % RDW (13.2-15.2) % Plt Count (140-440) K/mm3 Seg Neuts % (Manual) (40.0-70.0) % Lymphocytes % (Manual) (13.4-35.0) % Nucleated RBC % (0.0-0.9) % Seg Neutrophils # Man (1.8-7.7) K/mm3 Lymphocytes # (Manual) (1.2-5.4) K/mm3 POC ABG pH (7.35-7.45) POC ABG pCO2 (35-45) POC ABG pO2 (80-105) Chloride (98-107) mmol/L Carbon Dioxide (22-30) mmol/L BUN (9-20) mg/dL Creatinine (0.8-1.5) mg/dL Glucose (75-100) mg/dL POC Glucose 159 H 122 H 137 H (70-105) Lactic Acid (0.7-2.0) mmol/L Calcium (8.4-10.2) mg/dL Phosphorus (2.5-4.5) mg/dL Crossmatch 10/19/16 10/19/16 10/19/16 Range/Units 01:06 01:59 03:07 WBC (4.5-11.0) K/mm3 RBC (3.65-5.03) M/mm3 Hgb (11.8-15.2) gm/dl Hct (35.5-45.6) % RDW (13.2-15.2) % Plt Count (140-440) K/mm3 Seg Neuts % (Manual) (40.0-70.0) % Lymphocytes % (Manual) (13.4-35.0) % Nucleated RBC % (0.0-0.9) % Seg Neutrophils # Man (1.8-7.7) K/mm3 Lymphocytes # (Manual) (1.2-5.4) K/mm3 POC ABG pH (7.35-7.45) POC ABG pCO2 (35-45) POC ABG pO2 (80-105) Chloride (98-107) mmol/L Carbon Dioxide (22-30) mmol/L BUN (9-20) mg/dL Creatinine (0.8-1.5) mg/dL Glucose (75-100) mg/dL POC Glucose 162 H 154 H 178 H (70-105) Lactic Acid (0.7-2.0) mmol/L Calcium (8.4-10.2) mg/dL Phosphorus (2.5-4.5) mg/dL Crossmatch 10/19/16 10/19/16 10/19/16 Range/Units 04:10 05:14 05:15 WBC (4.5-11.0) K/mm3 RBC (3.65-5.03) M/mm3 Hgb (11.8-15.2) gm/dl Hct (35.5-45.6) % RDW (13.2-15.2) % Plt Count (140-440) K/mm3 Seg Neuts % (Manual) (40.0-70.0) % Lymphocytes % (Manual) (13.4-35.0) % Nucleated RBC % (0.0-0.9) % Seg Neutrophils # Man (1.8-7.7) K/mm3 Lymphocytes # (Manual) (1.2-5.4) K/mm3 POC ABG pH 7.581 H (7.35-7.45) POC ABG pCO2 22.9 L (35-45) POC ABG pO2 58 L (80-105) Chloride (98-107) mmol/L Carbon Dioxide (22-30) mmol/L BUN (9-20) mg/dL Creatinine (0.8-1.5) mg/dL Glucose (75-100) mg/dL POC Glucose 186 H 197 H (70-105) Lactic Acid (0.7-2.0) mmol/L Calcium (8.4-10.2) mg/dL Phosphorus (2.5-4.5) mg/dL Crossmatch 10/19/16 10/19/16 10/19/16 Range/Units 05:47 06:00 06:00 WBC 23.0 H (4.5-11.0) K/mm3 RBC 2.54 L (3.65-5.03) M/mm3 Hgb 7.5 L (11.8-15.2) gm/dl Hct 23.0 L (35.5-45.6) % RDW 20.7 H (13.2-15.2) % Plt Count 25 L (140-440) K/mm3 Seg Neuts % (Manual) 91.0 H (40.0-70.0) % Lymphocytes % (Manual) 2.0 L (13.4-35.0) % Nucleated RBC % 1.0 H (0.0-0.9) % Seg Neutrophils # Man 20.9 H (1.8-7.7) K/mm3 Lymphocytes # (Manual) 0.5 L (1.2-5.4) K/mm3 POC ABG pH (7.35-7.45) POC ABG pCO2 (35-45) POC ABG pO2 (80-105) Chloride 88.7 L (98-107) mmol/L Carbon Dioxide 21 L (22-30) mmol/L BUN 70 H (9-20) mg/dL Creatinine 3.9 H (0.8-1.5) mg/dL Glucose 189 H (75-100) mg/dL POC Glucose 204 H (70-105) Lactic Acid (0.7-2.0) mmol/L Calcium 5.6 L* (8.4-10.2) mg/dL Phosphorus 6.30 H (2.5-4.5) mg/dL Crossmatch 10/19/16 10/19/16 Range/Units 07:51 09:14 WBC (4.5-11.0) K/mm3 RBC (3.65-5.03) M/mm3 Hgb (11.8-15.2) gm/dl Hct (35.5-45.6) % RDW (13.2-15.2) % Plt Count (140-440) K/mm3 Seg Neuts % (Manual) (40.0-70.0) % Lymphocytes % (Manual) (13.4-35.0) % Nucleated RBC % (0.0-0.9) % Seg Neutrophils # Man (1.8-7.7) K/mm3 Lymphocytes # (Manual) (1.2-5.4) K/mm3 POC ABG pH (7.35-7.45) POC ABG pCO2 (35-45) POC ABG pO2 (80-105) Chloride (98-107) mmol/L Carbon Dioxide (22-30) mmol/L BUN (9-20) mg/dL Creatinine (0.8-1.5) mg/dL Glucose (75-100) mg/dL POC Glucose 145 H 173 H (70-105) Lactic Acid (0.7-2.0) mmol/L Calcium (8.4-10.2) mg/dL Phosphorus (2.5-4.5) mg/dL Crossmatch Microbiology 10/16/16 21:15 Peripheral/Venous Blood Culture - Preliminary NO GROWTH AFTER 48 HOURS 10/16/16 20:30 Peripheral/Venous Blood Culture - Preliminary NO GROWTH AFTER 48 HOURS 10/16/16 21:00 Tracheal Aspirate Sputum Culture - Final Sara Albicans 10/14/16 16:15 Peripheral/Venous Blood Culture - Preliminary Beta Hemolytic Strep Group B 10/14/16 15:33 Peripheral/Venous Blood Culture - Preliminary Beta Hemolytic Strep Group B Active Medications Acetaminophen (Tylenol) 650 mg PO Q6H PRN PRN Reason: pain Last Admin: 10/19/16 08:24 Dose: 650 mg Acetaminophen (Tylenol) 1,000 mg LA Q4H PRN PRN Reason: Pain, Mild (1-3) Last Admin: 10/17/16 18:15 Dose: 1,000 mg Lipase/Protease/Amylase (Pancreaze Dr 10,500 Unit) 1 each FEEDTUBE PRN PRN PRN Reason: For Clogged Feeding Tube Dexamethasone (Decadron) 4 mg IV Q8H [facility] Last Admin: 10/19/16 04:46 Dose: 4 mg Dextrose (D50w (25gm)) 25 ml IV PRN PRN PRN Reason: Hypoglycemia Last Admin: 10/18/16 07:20 Dose: 25 ml Diphenhydramine HCl (Benadryl) 50 mg IV Q6H PRN PRN Reason: Itching Last Admin: 10/19/16 08:25 Dose: 50 mg Famotidine (Pepcid) 20 mg IV Q24H [facility] Last Admin: 10/18/16 20:20 Dose: 20 mg Haloperidol Lactate (Haldol) 5 mg IM Q6H PRN PRN Reason: Agitation Last Admin: 10/14/16 21:11 Dose: 5 mg Heparin Sodium (Porcine) (Heparin) 10,000 unit IV ROD PRN PRN Reason: for plasmapheresis- vascath Hydrophilic Ointment (Vaseline Lip Therapy) 1 applic TP Q2H PRN PRN Reason: Dry Lips Sodium Chloride (Nacl 0.9%) 100 mls @ 999 mls/hr IV ROD PRN PRN Reason: Hypotension Sodium Chloride (Nacl 0.9%) 100 mls @ 999 mls/hr IV ROD PRN PRN Reason: Hypotension Sodium Chloride (Nacl 0.9%) 100 mls @ 999 mls/hr IV ROD PRN PRN Reason: Hypotension Amiodarone HCl 900 mg/ (Dextrose) 500 mls @ 33.33 mls/hr IV DIRECT EDWINA; 1 MG /MIN PRN Reason: Protocol Last Admin: 10/19/16 07:17 Dose: 0.5 mg/min, 16.66 mls/hr Clindamycin HCl (Cleocin 900 Mg/50 Ml) 900 mg in 50 mls @ 100 mls/hr IV Q8H EDWINA PRN Reason: Protocol Last Admin: 10/19/16 04:46 Dose: 100 mls/hr Norepinephrine (Levophed Drip 4 Mg/Ns 250 Ml) 4 mg in 250 mls @ 7.5 mls/hr IV TITR EDWINA; 2 MCG/MIN PRN Reason: Protocol Last Titration: 10/19/16 09:17 Dose: 8 mcg/min, 30 mls/hr Propofol (Diprivan 10 Mg/Ml) 1,000 mg in 100 mls @ 1.827 mls/hr IV TITR EDWINA; 5 MCG/KG/MIN PRN Reason: Protocol Last Titration: 10/19/16 07:00 Dose: 10 mcg/kg/min, 3.654 mls/hr Fentanyl Citrate (Fentanyl Drip Premix) 2,000 mcg in 100 mls @ 3.045 mls/hr IV TITR EDWINA; 1 MCG/KG/HR PRN Reason: Protocol Dextrose/Sodium Chloride (D5/0.45ns) 1,000 mls @ 75 mls/hr IV DIRECT EDWINA Last Admin: 10/19/16 04:54 Dose: 75 mls/hr Vancomycin HCl 1,250 mg/ (Sodium Chloride) 275 mls @ 166.667 mls/hr IV ONCE ONE Stop: 10/19/16 15:38 Multi-Ingred Cream/Lotion/Oil/Oint (Artificial Tears Ophth Oint) 1 applic OU Q4H PRN PRN Reason: Dry Eye(s) Ondansetron HCl (Zofran) 4 mg IV Q8H PRN PRN Reason: Nausea And Vomiting Simple Syrup (Simple Syrup) 15 ml FEEDTUBE PRN PRN PRN Reason: Hypoglycemia Simple Syrup (Simple Syrup) 30 ml FEEDTUBE PRN PRN PRN Reason: Hypoglycemia Sodium Bicarbonate (Sodium Bicarbonate) 325 mg FEEDTUBE PRN PRN PRN Reason: For Clogged Feeding Tube Sodium Chloride (Sodium Chloride Flush Syringe 10 Ml) 10 ml IV PRN PRN PRN Reason: LINE FLUSH Last Admin: 10/17/16 20:45 Dose: 10 ml Vancomycin HCl (Vancomycin Pharmacy To Dose) 1 each IV PKCONSULT EDWINA PRN Reason: Protocol - Imaging and cardiology Chest x-ray: report reviewed (no acute pulmonary process)
--- NOTE | 2016-10-19 10:03 | Progress Note ---
Assessment and Plan - Patient Problems (1) Acute respiratory failure Current Visit: Yes Status: Acute Qualifiers: Respiratory failure complication: hypoxia Qualified Code(s): J96.01 - Acute respiratory failure with hypoxia Plan to address problem: Currently on AC-VC 25/500/PEEP 5/35% ABG- 7.43/27/162/17.9 VAP bundle addressed HOB>40, aspiration precautions CXR in am Start weaning supplemental oxygen Daily SATs/SBTs Agitation management- intermittent medication Nutrition - resume trophic feeds at 10cc/hour, continuous. Will re-evaluate in am and advance as tolerated (2) Septic shock Current Visit: Yes Status: Acute Plan to address problem: Secondary to Streptococcal bacteremia/pneumonia Transthoracic echo was negative for vegetations Continue vasopressor support- keep MAP>65 Antibiotics as per ID service (3) TTP (thrombotic thrombocytopenic purpura) Current Visit: Yes Status: Acute Plan to address problem: As per hematology. Avoid platelet transfusions Plasmapheresis (4) RAJESH (acute kidney injury) Current Visit: Yes Status: Acute Plan to address problem: On supportive HD Renal managing (5) Anemia Current Visit: Yes Status: Acute Qualifiers: Anemia type: unspecified type Iron deficiency anemia type: I Vitamin B12 deficiency anemia type: V Folate deficiency anemia type: F Bone marrow failure anemia type: B Hemolytic anemia type: H Other causes of anemia: O Qualified Code(s): D64.9 - Anemia, unspecified Plan to address problem: Monitor, supportive transfusions as needed. s/p 1 unit PRBC (6) Acute encephalopathy Current Visit: Yes Status: Acute Plan to address problem: Slowly improving, monitor Subjective Date of service: 10/19/16 Principal diagnosis: Sepsis Syndrome; MAHA; RAJESH; CHF Interval history: Patient admitted with * Acute metabolic encephalopathy * AFIB WITH RVR * beta hemolitic strep BACTERIMIA * Acute Respiratory failure with hypoxia * Pancytopenia [leukopenia, severe anemia, Woresening thrombocytopenia] POSSIBLE LYMPHOMA * ?DIC * End-stage renal disease * secondary coagulopathy * Lactic acidosis * Probable TTP, HUS, Amyloidosis * persistent hypoglycemia * Acute systolic congestive heart failure EF around 30% * SEVERE SEPSIS * Today 10/19/2016 Critically ill, on mechanical ventilatory support- required orotracheal intubation 10/16/2016 On going need for vasopressor support- no patient ventilator dys-synchrony On amiodarone infusion for atrial fibrillation with RVR Receiving plasmaphersis On antibiotics for Strep PNA Seen and examined, vitals, labs, records reviewed. More awake today, appears to track voice Tolerating tube feedings Discussed on interdisciplinary rounds Objective - Exam Narrative Exam: GEN: Critically ill intubated but not sedated HEENT: Eyes are floating, ET tube in place CVS: irregular, NORMAL S1S2 LUNGS/CHEST: NORMAL CHEST EXPANSION B, GOOD AIR ENTRY B ABD: SOFT, POSITIVE BOWEL SOUNDS, NONDISTENDED, NO REBOUND OR GUARDING NEURO: CN 2-12 GROSSLY INTACT, he doesn't follow commands PSY: Unresponsive Vital Signs - 12hr 10/18/16 10/18/16 10/18/16 22:15 22:30 22:45 Temperature Pulse Rate 68 68 68 Respiratory 25 H 25 H 19 Rate Blood Pressure 118/80 123/83 125/84 O2 Sat by Pulse 100 100 100 Oximetry 10/18/16 10/18/16 10/18/16 23:00 23:15 23:30 Temperature Pulse Rate 70 68 68 Respiratory 22 25 H 25 H Rate Blood Pressure 135/96 120/82 122/83 O2 Sat by Pulse 100 100 100 Oximetry 10/18/16 10/18/16 10/19/16 23:45 23:55 00:00 Temperature 99.8 F H Pulse Rate 69 69 69 Respiratory 25 H 25 H Rate Blood Pressure 132/86 104/63 134/89 O2 Sat by Pulse 100 100 100 Oximetry 10/19/16 10/19/16 10/19/16 00:15 00:30 00:45 Temperature Pulse Rate 73 72 72 Respiratory 31 H 36 H 24 Rate Blood Pressure 167/92 145/104 143/91 O2 Sat by Pulse 100 100 100 Oximetry 10/19/16 10/19/16 10/19/16 01:00 01:15 01:30 Temperature Pulse Rate 70 71 72 Respiratory 25 H 25 H 29 H Rate Blood Pressure 131/85 134/87 140/92 O2 Sat by Pulse 100 100 100 Oximetry 10/19/16 10/19/16 10/19/16 01:45 02:01 02:15 Temperature Pulse Rate 72 112 H 107 H Respiratory 24 12 19 Rate Blood Pressure 157/90 111/76 152/119 O2 Sat by Pulse 100 100 99 Oximetry 10/19/16 10/19/16 10/19/16 02:30 02:45 03:00 Temperature Pulse Rate 72 70 69 Respiratory 26 H 25 H 25 H Rate Blood Pressure 115/78 99/66 95/64 O2 Sat by Pulse 100 100 100 Oximetry 10/19/16 10/19/16 10/19/16 03:15 03:30 03:45 Temperature Pulse Rate 69 68 68 Respiratory 25 H 25 H 25 H Rate Blood Pressure 98/65 97/63 94/61 O2 Sat by Pulse 100 100 100 Oximetry 10/19/16 10/19/16 10/19/16 04:00 04:15 04:30 Temperature 100.1 F H Pulse Rate 68 68 67 Respiratory 25 H 23 26 H Rate Blood Pressure 108/68 96/66 96/62 O2 Sat by Pulse 100 100 100 Oximetry 10/19/16 10/19/16 10/19/16 04:45 05:00 05:15 Temperature Pulse Rate 66 66 65 Respiratory 25 H 25 H 24 Rate Blood Pressure 96/60 91/61 91/62 O2 Sat by Pulse 100 100 100 Oximetry 10/19/16 10/19/16 10/19/16 05:30 05:45 06:00 Temperature Pulse Rate 66 65 65 Respiratory 21 19 20 Rate Blood Pressure 93/58 81/49 80/49 O2 Sat by Pulse 67 L 96 99 Oximetry 10/19/16 10/19/16 10/19/16 06:15 06:30 06:45 Temperature Pulse Rate 67 66 67 Respiratory 13 21 22 Rate Blood Pressure 143/85 129/81 134/81 O2 Sat by Pulse 93 97 100 Oximetry 10/19/16 10/19/16 10/19/16 07:00 07:15 07:30 Temperature Pulse Rate 68 68 67 Respiratory 22 15 18 Rate Blood Pressure 138/87 138/89 132/81 O2 Sat by Pulse 100 100 100 Oximetry 10/19/16 10/19/16 10/19/16 07:45 08:00 08:15 Temperature 100.6 F H Pulse Rate 68 67 67 Respiratory 20 21 20 Rate Blood Pressure 125/83 128/80 135/80 O2 Sat by Pulse 100 100 100 Oximetry 10/19/16 10/19/16 08:28 08:30 Temperature Pulse Rate 71 71 Respiratory 23 Rate Blood Pressure 135/80 148/89 O2 Sat by Pulse 100 100 Oximetry Constitutional: lethargic Eyes: non-icteric ENT: oropharynx dry Neck: supple, no lymphadenopathy Effort: mildly labored Ascultation: Bilateral: clear, diminished breath sounds Cardiovascular: irregular rhythm Gastrointestinal: normoactive bowel sounds, soft, non-tender, non-distended Integumentary: normal Extremities: no cyanosis, pulses normal, no ischemia or petechiae, edema Neurologic: non-focal exam (grossly) Psychiatric: other (unable to assess) CBC and BMP: 10/20/16 06:00 10/20/16 05:00 ABG, PT/INR, D-dimer: ABG POC ABG pH 7.581 (7.35-7.45) H 10/19/16 05:14 POC ABG pCO2 22.9 (35-45) L 10/19/16 05:14 POC ABG pO2 58 (80-105) L 10/19/16 05:14 POC ABG HCO3 21.5 10/19/16 05:14 POC ABG Total CO2 22 10/19/16 05:14 POC ABG O2 Sat 94 10/19/16 05:14 PT/INR, D-dimer PT 28.9 Sec. (12.2-14.9) H 10/14/16 21:25 INR 2.71 (0.87-1.13) H 10/14/16 21:25 Abnormal lab findings: Abnormal Labs 10/13/16 10/13/16 10/13/16 14:50 21:40 22:05 WBC RBC Hgb Hct MCV MCHC RDW Plt Count Seg Neuts % (Manual) Lymphocytes % (Manual) Nucleated RBC % Seg Neutrophils # Man Lymphocytes # (Manual) Haptoglobin PT INR Fibrinogen Lupus Anticoagulant LA PTT Baseline POC ABG pH POC ABG pCO2 POC ABG pO2 Sodium Potassium Chloride Carbon Dioxide BUN Creatinine Glucose POC Glucose 52 L 43 L Lactic Acid Uric Acid Calcium Phosphorus Iron TIBC Ferritin Total Bilirubin Direct Bilirubin Lactate Dehydrogenase C-Reactive Protein Serum Total Protein 5.6 L Albumin 2.2 L Xrqqo-8-Atdajdrjd 0.5 H Abnorm Protein Band 1 1.4 H PEP Interpretation see below H Crossmatch 10/13/16 10/14/16 10/14/16 23:18 03:00 03:00 WBC RBC Hgb Hct MCV MCHC RDW Plt Count Seg Neuts % (Manual) Lymphocytes % (Manual) Nucleated RBC % Seg Neutrophils # Man Lymphocytes # (Manual) Haptoglobin PT INR Fibrinogen Lupus Anticoagulant see below H LA PTT Baseline 55 H POC ABG pH POC ABG pCO2 POC ABG pO2 Sodium Potassium Chloride Carbon Dioxide BUN Creatinine Glucose POC Glucose 113 H Lactic Acid Uric Acid Calcium Phosphorus Iron TIBC Ferritin Total Bilirubin Direct Bilirubin Lactate Dehydrogenase 406 H C-Reactive Protein Serum Total Protein Albumin Vckjo-7-Tgelifqss Abnorm Protein Band 1 PEP Interpretation Crossmatch 10/14/16 10/14/16 10/14/16 03:00 03:00 04:34 WBC 1.3 L* RBC 2.33 L Hgb 7.3 L Hct 21.7 L MCV MCHC RDW 19.8 H Plt Count 99 L Seg Neuts % (Manual) Lymphocytes % (Manual) 3.0 L Nucleated RBC % Seg Neutrophils # Man 0.9 L Lymphocytes # (Manual) 0.0 L Haptoglobin PT INR Fibrinogen Lupus Anticoagulant LA PTT Baseline POC ABG pH POC ABG pCO2 POC ABG pO2 Sodium Potassium Chloride Carbon Dioxide 18 L BUN 73 H Creatinine 9.8 H Glucose 59 L POC Glucose Lactic Acid Uric Acid 8.0 H Calcium 8.2 L Phosphorus 6.60 H Iron 13 L TIBC 160 L Ferritin Total Bilirubin Direct Bilirubin Lactate Dehydrogenase C-Reactive Protein Serum Total Protein Albumin Uisih-3-Mbxtdpgia Abnorm Protein Band 1 PEP Interpretation Crossmatch 10/14/16 10/14/16 10/14/16 05:27 06:29 07:34 WBC RBC Hgb Hct MCV MCHC RDW Plt Count Seg Neuts % (Manual) Lymphocytes % (Manual) Nucleated RBC % Seg Neutrophils # Man Lymphocytes # (Manual) Haptoglobin PT INR Fibrinogen Lupus Anticoagulant LA PTT Baseline POC ABG pH POC ABG pCO2 POC ABG pO2 Sodium Potassium Chloride Carbon Dioxide BUN Creatinine Glucose POC Glucose < 40 L 63 L < 40 L Lactic Acid Uric Acid Calcium Phosphorus Iron TIBC Ferritin Total Bilirubin Direct Bilirubin Lactate Dehydrogenase C-Reactive Protein Serum Total Protein Albumin Uygrx-4-Ccdwltqrz Abnorm Protein Band 1 PEP Interpretation Crossmatch 10/14/16 10/14/16 10/14/16 09:58 09:58 09:58 WBC RBC Hgb Hct MCV MCHC RDW Plt Count Seg Neuts % (Manual) Lymphocytes % (Manual) Nucleated RBC % Seg Neutrophils # Man Lymphocytes # (Manual) Haptoglobin 218 H PT INR Fibrinogen 557 H Lupus Anticoagulant LA PTT Baseline POC ABG pH POC ABG pCO2 POC ABG pO2 Sodium Potassium Chloride Carbon Dioxide BUN Creatinine Glucose POC Glucose Lactic Acid Uric Acid Calcium Phosphorus Iron TIBC Ferritin Total Bilirubin 1.30 H Direct Bilirubin 1.1 H Lactate Dehydrogenase C-Reactive Protein Serum Total Protein Albumin Adzig-8-Exukniyrk Abnorm Protein Band 1 PEP Interpretation Crossmatch 10/14/16 10/14/16 10/14/16 10:57 11:15 12:52 WBC RBC Hgb Hct MCV MCHC RDW Plt Count Seg Neuts % (Manual) Lymphocytes % (Manual) Nucleated RBC % Seg Neutrophils # Man Lymphocytes # (Manual) Haptoglobin PT INR Fibrinogen Lupus Anticoagulant LA PTT Baseline POC ABG pH POC ABG pCO2 POC ABG pO2 Sodium Potassium Chloride Carbon Dioxide BUN Creatinine Glucose POC Glucose < 40 L < 40 L Lactic Acid 9.60 H* Uric Acid Calcium Phosphorus Iron TIBC Ferritin Total Bilirubin Direct Bilirubin Lactate Dehydrogenase C-Reactive Protein Serum Total Protein Albumin Sxtxw-2-Bftumlwet Abnorm Protein Band 1 PEP Interpretation Crossmatch 10/14/16 10/14/16 10/14/16 12:52 13:17 14:12 WBC RBC Hgb Hct MCV MCHC RDW Plt Count Seg Neuts % (Manual) Lymphocytes % (Manual) Nucleated RBC % Seg Neutrophils # Man Lymphocytes # (Manual) Haptoglobin PT INR Fibrinogen Lupus Anticoagulant LA PTT Baseline POC ABG pH POC ABG pCO2 POC ABG pO2 Sodium Potassium Chloride Carbon Dioxide BUN Creatinine Glucose POC Glucose < 40 L < 40 L Lactic Acid Uric Acid Calcium Phosphorus Iron TIBC Ferritin Total Bilirubin Direct Bilirubin Lactate Dehydrogenase C-Reactive Protein 40.40 H Serum Total Protein Albumin Pxsya-7-Jpdfaapwk Abnorm Protein Band 1 PEP Interpretation Crossmatch 10/14/16 10/14/16 10/14/16 15:02 15:33 15:33 WBC RBC Hgb Hct MCV MCHC RDW Plt Count Seg Neuts % (Manual) Lymphocytes % (Manual) Nucleated RBC % Seg Neutrophils # Man Lymphocytes # (Manual) Haptoglobin PT INR Fibrinogen Lupus Anticoagulant LA PTT Baseline POC ABG pH POC ABG pCO2 POC ABG pO2 Sodium Potassium Chloride Carbon Dioxide BUN Creatinine Glucose 19 L* POC Glucose < 40 L Lactic Acid 11.60 H* Uric Acid Calcium Phosphorus Iron TIBC Ferritin Total Bilirubin Direct Bilirubin Lactate Dehydrogenase C-Reactive Protein Serum Total Protein Albumin Frgqo-9-Ummbtwdwk Abnorm Protein Band 1 PEP Interpretation Crossmatch 10/14/16 10/14/16 10/14/16 17:14 18:03 21:25 WBC RBC Hgb Hct MCV MCHC RDW Plt Count Seg Neuts % (Manual) Lymphocytes % (Manual) Nucleated RBC % Seg Neutrophils # Man Lymphocytes # (Manual) Haptoglobin PT 28.9 H INR 2.71 H Fibrinogen Lupus Anticoagulant LA PTT Baseline POC ABG pH POC ABG pCO2 POC ABG pO2 Sodium Potassium Chloride Carbon Dioxide BUN Creatinine Glucose POC Glucose < 40 L 57 L Lactic Acid Uric Acid Calcium Phosphorus Iron TIBC Ferritin Total Bilirubin Direct Bilirubin Lactate Dehydrogenase C-Reactive Protein Serum Total Protein Albumin Xdaoe-5-Wrbgrpfjm Abnorm Protein Band 1 PEP Interpretation Crossmatch 10/15/16 10/15/16 10/15/16 05:32 05:35 05:35 WBC RBC 2.62 L Hgb 8.1 L Hct 25.8 L MCV 98 H D MCHC 31 L RDW 21.2 H Plt Count 61 L Seg Neuts % (Manual) 27.0 L Lymphocytes % (Manual) 10.0 L Nucleated RBC % 2.0 H Seg Neutrophils # Man Lymphocytes # (Manual) 0.8 L Haptoglobin PT INR Fibrinogen Lupus Anticoagulant LA PTT Baseline POC ABG pH POC ABG pCO2 POC ABG pO2 Sodium Potassium Chloride Carbon Dioxide BUN Creatinine Glucose POC Glucose < 40 L Lactic Acid Uric Acid Calcium Phosphorus Iron TIBC Ferritin Total Bilirubin Direct Bilirubin Lactate Dehydrogenase 3871 H C-Reactive Protein Serum Total Protein Albumin Ggvqy-5-Llowbhbzh Abnorm Protein Band 1 PEP Interpretation Crossmatch 10/15/16 10/15/16 10/15/16 05:35 05:35 05:35 WBC RBC Hgb Hct MCV MCHC RDW Plt Count Seg Neuts % (Manual) Lymphocytes % (Manual) Nucleated RBC % Seg Neutrophils # Man Lymphocytes # (Manual) Haptoglobin PT INR Fibrinogen Lupus Anticoagulant LA PTT Baseline POC ABG pH POC ABG pCO2 POC ABG pO2 Sodium 136 L Potassium 5.3 H D Chloride 91.4 L Carbon Dioxide 6 L* D BUN 57 H Creatinine 7.1 H Glucose 11 L* POC Glucose Lactic Acid 13.60 H* Uric Acid Calcium 7.7 L Phosphorus 10.10 H D Iron TIBC 166 L Ferritin 9562.0 H Total Bilirubin Direct Bilirubin Lactate Dehydrogenase C-Reactive Protein Serum Total Protein Albumin Tacib-5-Ckkhzaesg Abnorm Protein Band 1 PEP Interpretation Crossmatch 10/15/16 10/15/16 10/15/16 05:51 06:22 06:52 WBC RBC Hgb Hct MCV MCHC RDW Plt Count Seg Neuts % (Manual) Lymphocytes % (Manual) Nucleated RBC % Seg Neutrophils # Man Lymphocytes # (Manual) Haptoglobin PT INR Fibrinogen Lupus Anticoagulant LA PTT Baseline POC ABG pH 7.189 L POC ABG pCO2 28.9 L POC ABG pO2 Sodium Potassium Chloride Carbon Dioxide BUN Creatinine Glucose POC Glucose 59 L 111 H Lactic Acid Uric Acid Calcium Phosphorus Iron TIBC Ferritin Total Bilirubin Direct Bilirubin Lactate Dehydrogenase C-Reactive Protein Serum Total Protein Albumin Ydwnh-5-Updgoztsv Abnorm Protein Band 1 PEP Interpretation Crossmatch 10/15/16 10/15/16 10/15/16 08:00 09:57 11:42 WBC RBC Hgb Hct MCV MCHC RDW Plt Count Seg Neuts % (Manual) Lymphocytes % (Manual) Nucleated RBC % Seg Neutrophils # Man Lymphocytes # (Manual) Haptoglobin PT INR Fibrinogen Lupus Anticoagulant LA PTT Baseline POC ABG pH POC ABG pCO2 POC ABG pO2 Sodium Potassium Chloride Carbon Dioxide BUN Creatinine Glucose POC Glucose 63 L 143 H 203 H Lactic Acid Uric Acid Calcium Phosphorus Iron TIBC Ferritin Total Bilirubin Direct Bilirubin Lactate Dehydrogenase C-Reactive Protein Serum Total Protein Albumin Hiozn-4-Atnzulqvj Abnorm Protein Band 1 PEP Interpretation Crossmatch 10/15/16 10/15/16 10/15/16 12:00 12:00 13:00 WBC RBC Hgb Hct MCV MCHC RDW Plt Count Seg Neuts % (Manual) Lymphocytes % (Manual) Nucleated RBC % Seg Neutrophils # Man Lymphocytes # (Manual) Haptoglobin <15 L PT INR Fibrinogen Lupus Anticoagulant LA PTT Baseline POC ABG pH POC ABG pCO2 POC ABG pO2 Sodium Potassium Chloride Carbon Dioxide BUN Creatinine Glucose POC Glucose 136 H Lactic Acid 16.30 H* Uric Acid Calcium Phosphorus Iron TIBC Ferritin Total Bilirubin Direct Bilirubin Lactate Dehydrogenase C-Reactive Protein Serum Total Protein Albumin Aymjf-5-Qeppevgoo Abnorm Protein Band 1 PEP Interpretation Crossmatch 10/15/16 10/15/16 10/15/16 14:06 15:15 16:23 WBC RBC Hgb Hct MCV MCHC RDW Plt Count Seg Neuts % (Manual) Lymphocytes % (Manual) Nucleated RBC % Seg Neutrophils # Man Lymphocytes # (Manual) Haptoglobin PT INR Fibrinogen Lupus Anticoagulant LA PTT Baseline POC ABG pH POC ABG pCO2 POC ABG pO2 Sodium Potassium Chloride Carbon Dioxide BUN Creatinine Glucose POC Glucose 132 H 64 L Lactic Acid 20.40 H* Uric Acid Calcium Phosphorus Iron TIBC Ferritin Total Bilirubin Direct Bilirubin Lactate Dehydrogenase C-Reactive Protein Serum Total Protein Albumin Eaqhp-7-Sdawzwiqk Abnorm Protein Band 1 PEP Interpretation Crossmatch 10/15/16 10/15/16 10/15/16 16:40 17:00 17:10 WBC RBC Hgb Hct MCV MCHC RDW Plt Count Seg Neuts % (Manual) Lymphocytes % (Manual) Nucleated RBC % Seg Neutrophils # Man Lymphocytes # (Manual) Haptoglobin PT INR Fibrinogen Lupus Anticoagulant LA PTT Baseline POC ABG pH 7.323 L POC ABG pCO2 25.8 L POC ABG pO2 135 H Sodium Potassium Chloride Carbon Dioxide BUN Creatinine Glucose POC Glucose 159 H Lactic Acid 20.20 H* Uric Acid Calcium Phosphorus Iron TIBC Ferritin Total Bilirubin Direct Bilirubin Lactate Dehydrogenase C-Reactive Protein Serum Total Protein Albumin Bqqbn-2-Bhfmdcxds Abnorm Protein Band 1 PEP Interpretation Crossmatch 10/15/16 10/15/16 10/15/16 17:46 17:53 18:45 WBC RBC Hgb Hct MCV MCHC RDW Plt Count Seg Neuts % (Manual) Lymphocytes % (Manual) Nucleated RBC % Seg Neutrophils # Man Lymphocytes # (Manual) Haptoglobin PT INR Fibrinogen Lupus Anticoagulant LA PTT Baseline POC ABG pH POC ABG pCO2 POC ABG pO2 Sodium Potassium Chloride Carbon Dioxide BUN Creatinine Glucose POC Glucose 126 H 143 H Lactic Acid 21.40 H* Uric Acid Calcium Phosphorus Iron TIBC Ferritin Total Bilirubin Direct Bilirubin Lactate Dehydrogenase C-Reactive Protein Serum Total Protein Albumin Wqhqn-0-Vkjusyhgx Abnorm Protein Band 1 PEP Interpretation Crossmatch 10/15/16 10/15/16 10/16/16 20:03 22:59 00:06 WBC RBC Hgb Hct MCV MCHC RDW Plt Count Seg Neuts % (Manual) Lymphocytes % (Manual) Nucleated RBC % Seg Neutrophils # Man Lymphocytes # (Manual) Haptoglobin PT INR Fibrinogen Lupus Anticoagulant LA PTT Baseline POC ABG pH POC ABG pCO2 POC ABG pO2 Sodium Potassium Chloride Carbon Dioxide BUN Creatinine Glucose POC Glucose 66 L 53 L 126 H Lactic Acid Uric Acid Calcium Phosphorus Iron TIBC Ferritin Total Bilirubin Direct Bilirubin Lactate Dehydrogenase C-Reactive Protein Serum Total Protein Albumin Nbnya-0-Ggjrqvkkk Abnorm Protein Band 1 PEP Interpretation Crossmatch 10/16/16 10/16/16 10/16/16 01:03 03:55 04:00 WBC RBC Hgb Hct MCV MCHC RDW Plt Count Seg Neuts % (Manual) Lymphocytes % (Manual) Nucleated RBC % Seg Neutrophils # Man Lymphocytes # (Manual) Haptoglobin PT INR Fibrinogen Lupus Anticoagulant LA PTT Baseline POC ABG pH POC ABG pCO2 POC ABG pO2 Sodium Potassium Chloride Carbon Dioxide BUN Creatinine Glucose POC Glucose 107 H 260 H Lactic Acid 18.00 H* Uric Acid Calcium Phosphorus Iron TIBC Ferritin Total Bilirubin Direct Bilirubin Lactate Dehydrogenase C-Reactive Protein Serum Total Protein Albumin Ievsk-5-Wbczbswls Abnorm Protein Band 1 PEP Interpretation Crossmatch 10/16/16 10/16/16 10/16/16 04:03 07:58 08:34 WBC RBC Hgb Hct MCV MCHC RDW Plt Count Seg Neuts % (Manual) Lymphocytes % (Manual) Nucleated RBC % Seg Neutrophils # Man Lymphocytes # (Manual) Haptoglobin PT INR Fibrinogen Lupus Anticoagulant LA PTT Baseline POC ABG pH 7.527 H POC ABG pCO2 32.9 L POC ABG pO2 119 H Sodium Potassium Chloride Carbon Dioxide BUN Creatinine Glucose POC Glucose 120 H 66 L Lactic Acid Uric Acid Calcium Phosphorus Iron TIBC Ferritin Total Bilirubin Direct Bilirubin Lactate Dehydrogenase C-Reactive Protein Serum Total Protein Albumin Yrtop-7-Idhgxbkaw Abnorm Protein Band 1 PEP Interpretation Crossmatch 10/16/16 10/16/16 10/16/16 09:13 10:06 10:57 WBC RBC Hgb Hct MCV MCHC RDW Plt Count Seg Neuts % (Manual) Lymphocytes % (Manual) Nucleated RBC % Seg Neutrophils # Man Lymphocytes # (Manual) Haptoglobin PT INR Fibrinogen Lupus Anticoagulant LA PTT Baseline POC ABG pH POC ABG pCO2 POC ABG pO2 Sodium Potassium Chloride Carbon Dioxide BUN Creatinine Glucose POC Glucose 147 H 137 H 140 H Lactic Acid Uric Acid Calcium Phosphorus Iron TIBC Ferritin Total Bilirubin Direct Bilirubin Lactate Dehydrogenase C-Reactive Protein Serum Total Protein Albumin Snlbl-0-Zrbqhngau Abnorm Protein Band 1 PEP Interpretation Crossmatch 10/16/16 10/16/16 10/16/16 11:15 11:15 11:15 WBC 25.8 H RBC 2.30 L Hgb 7.0 L Hct 22.3 L MCV 97 H MCHC 31 L RDW 21.2 H Plt Count 42 L Seg Neuts % (Manual) Lymphocytes % (Manual) 3.0 L Nucleated RBC % 2.0 H Seg Neutrophils # Man 11.1 H Lymphocytes # (Manual) 0.8 L Haptoglobin PT INR Fibrinogen Lupus Anticoagulant LA PTT Baseline POC ABG pH POC ABG pCO2 POC ABG pO2 Sodium Potassium Chloride 81.7 L Carbon Dioxide 13 L D BUN 61 H Creatinine 6.2 H Glucose 171 H POC Glucose Lactic Acid 22.70 H* Uric Acid Calcium 7.1 L Phosphorus 9.10 H Iron TIBC Ferritin Total Bilirubin Direct Bilirubin Lactate Dehydrogenase C-Reactive Protein Serum Total Protein Albumin Uzbny-3-Aibxppncd Abnorm Protein Band 1 PEP Interpretation Crossmatch 10/16/16 10/16/16 10/16/16 15:10 15:50 18:11 WBC RBC Hgb Hct MCV MCHC RDW Plt Count Seg Neuts % (Manual) Lymphocytes % (Manual) Nucleated RBC % Seg Neutrophils # Man Lymphocytes # (Manual) Haptoglobin PT INR Fibrinogen Lupus Anticoagulant LA PTT Baseline POC ABG pH POC ABG pCO2 POC ABG pO2 Sodium Potassium Chloride Carbon Dioxide BUN Creatinine Glucose POC Glucose 47 L 164 H 58 L Lactic Acid Uric Acid Calcium Phosphorus Iron TIBC Ferritin Total Bilirubin Direct Bilirubin Lactate Dehydrogenase C-Reactive Protein Serum Total Protein Albumin Oqcyy-2-Zfujhrhyg Abnorm Protein Band 1 PEP Interpretation Crossmatch 10/16/16 10/16/16 10/17/16 18:26 21:06 00:06 WBC RBC Hgb Hct MCV MCHC RDW Plt Count Seg Neuts % (Manual) Lymphocytes % (Manual) Nucleated RBC % Seg Neutrophils # Man Lymphocytes # (Manual) Haptoglobin PT INR Fibrinogen Lupus Anticoagulant LA PTT Baseline POC ABG pH POC ABG pCO2 POC ABG pO2 489 H Sodium Potassium Chloride Carbon Dioxide BUN Creatinine Glucose POC Glucose 52 L 120 H Lactic Acid Uric Acid Calcium Phosphorus Iron TIBC Ferritin Total Bilirubin Direct Bilirubin Lactate Dehydrogenase C-Reactive Protein Serum Total Protein Albumin Ovplj-1-Eoisqpzoh Abnorm Protein Band 1 PEP Interpretation Crossmatch 10/17/16 10/17/16 10/17/16 04:55 04:55 05:04 WBC 25.5 H RBC 2.23 L Hgb 6.6 L Hct 21.2 L MCV 95 H MCHC 31 L RDW 20.5 H Plt Count 35 L Seg Neuts % (Manual) 79.0 H Lymphocytes % (Manual) 0 L Nucleated RBC % Seg Neutrophils # Man 20.1 H Lymphocytes # (Manual) 0.0 L Haptoglobin PT INR Fibrinogen Lupus Anticoagulant LA PTT Baseline POC ABG pH POC ABG pCO2 27.2 L POC ABG pO2 162 H Sodium Potassium Chloride 91.5 L Carbon Dioxide 16 L BUN 45 H Creatinine 4.5 H Glucose 103 H POC Glucose Lactic Acid Uric Acid Calcium 6.9 L Phosphorus 5.80 H D Iron TIBC Ferritin Total Bilirubin Direct Bilirubin Lactate Dehydrogenase C-Reactive Protein Serum Total Protein Albumin Uzpwy-9-Xyimemiwi Abnorm Protein Band 1 PEP Interpretation Crossmatch 10/17/16 10/17/16 10/17/16 07:59 09:04 10:04 WBC RBC Hgb Hct MCV MCHC RDW Plt Count Seg Neuts % (Manual) Lymphocytes % (Manual) Nucleated RBC % Seg Neutrophils # Man Lymphocytes # (Manual) Haptoglobin PT INR Fibrinogen Lupus Anticoagulant LA PTT Baseline POC ABG pH POC ABG pCO2 POC ABG pO2 Sodium Potassium Chloride Carbon Dioxide BUN Creatinine Glucose POC Glucose 65 L 118 H Lactic Acid Uric Acid Calcium Phosphorus Iron TIBC Ferritin Total Bilirubin Direct Bilirubin Lactate Dehydrogenase C-Reactive Protein Serum Total Protein Albumin Vgnur-3-Wjduhywoz Abnorm Protein Band 1 PEP Interpretation Crossmatch See Detail 10/17/16 10/17/16 10/17/16 11:52 13:08 15:42 WBC RBC Hgb Hct MCV MCHC RDW Plt Count Seg Neuts % (Manual) Lymphocytes % (Manual) Nucleated RBC % Seg Neutrophils # Man Lymphocytes # (Manual) Haptoglobin PT INR Fibrinogen Lupus Anticoagulant LA PTT Baseline POC ABG pH POC ABG pCO2 POC ABG pO2 Sodium Potassium Chloride Carbon Dioxide BUN Creatinine Glucose POC Glucose 125 H 106 H 55 L Lactic Acid Uric Acid Calcium Phosphorus Iron TIBC Ferritin Total Bilirubin Direct Bilirubin Lactate Dehydrogenase C-Reactive Protein Serum Total Protein Albumin Kwxok-6-Oejyigrge Abnorm Protein Band 1 PEP Interpretation Crossmatch 10/17/16 10/17/16 10/17/16 17:39 20:37 21:02 WBC RBC Hgb Hct MCV MCHC RDW Plt Count Seg Neuts % (Manual) Lymphocytes % (Manual) Nucleated RBC % Seg Neutrophils # Man Lymphocytes # (Manual) Haptoglobin PT INR Fibrinogen Lupus Anticoagulant LA PTT Baseline POC ABG pH POC ABG pCO2 28.2 L POC ABG pO2 Sodium Potassium Chloride Carbon Dioxide BUN Creatinine Glucose POC Glucose < 40 L 106 H Lactic Acid Uric Acid Calcium Phosphorus Iron TIBC Ferritin Total Bilirubin Direct Bilirubin Lactate Dehydrogenase C-Reactive Protein Serum Total Protein Albumin Pocca-6-Qosdsospc Abnorm Protein Band 1 PEP Interpretation Crossmatch 10/17/16 10/17/16 10/18/16 22:18 23:14 00:28 WBC RBC Hgb Hct MCV MCHC RDW Plt Count Seg Neuts % (Manual) Lymphocytes % (Manual) Nucleated RBC % Seg Neutrophils # Man Lymphocytes # (Manual) Haptoglobin PT INR Fibrinogen Lupus Anticoagulant LA PTT Baseline POC ABG pH POC ABG pCO2 POC ABG pO2 Sodium Potassium Chloride Carbon Dioxide BUN Creatinine Glucose POC Glucose 111 H 118 H 112 H Lactic Acid Uric Acid Calcium Phosphorus Iron TIBC Ferritin Total Bilirubin Direct Bilirubin Lactate Dehydrogenase C-Reactive Protein Serum Total Protein Albumin Jppbf-8-Stgufnoxm Abnorm Protein Band 1 PEP Interpretation Crossmatch 10/18/16 10/18/16 10/18/16 05:00 05:00 05:15 WBC 27.3 H RBC 2.75 L Hgb 7.9 L Hct 25.3 L MCV MCHC 31 L RDW 20.7 H Plt Count 31 L Seg Neuts % (Manual) 87.0 H Lymphocytes % (Manual) 1.0 L Nucleated RBC % 1.0 H Seg Neutrophils # Man 23.8 H Lymphocytes # (Manual) 0.3 L Haptoglobin PT INR Fibrinogen Lupus Anticoagulant LA PTT Baseline POC ABG pH 7.466 H POC ABG pCO2 25.1 L POC ABG pO2 Sodium Potassium Chloride 88.7 L Carbon Dioxide 18 L BUN 66 H Creatinine 4.7 H Glucose POC Glucose Lactic Acid Uric Acid Calcium 6.1 L Phosphorus 7.30 H D Iron TIBC Ferritin Total Bilirubin Direct Bilirubin Lactate Dehydrogenase C-Reactive Protein Serum Total Protein Albumin Jvbcu-2-Cmrmaende Abnorm Protein Band 1 PEP Interpretation Crossmatch 10/18/16 10/18/16 10/18/16 07:15 07:44 09:07 WBC RBC Hgb Hct MCV MCHC RDW Plt Count Seg Neuts % (Manual) Lymphocytes % (Manual) Nucleated RBC % Seg Neutrophils # Man Lymphocytes # (Manual) Haptoglobin PT INR Fibrinogen Lupus Anticoagulant LA PTT Baseline POC ABG pH POC ABG pCO2 POC ABG pO2 Sodium Potassium Chloride Carbon Dioxide BUN Creatinine Glucose POC Glucose 64 L 156 H 117 H Lactic Acid Uric Acid Calcium Phosphorus Iron TIBC Ferritin Total Bilirubin Direct Bilirubin Lactate Dehydrogenase C-Reactive Protein Serum Total Protein Albumin Ylxml-3-Wtahimdqu Abnorm Protein Band 1 PEP Interpretation Crossmatch 10/18/16 10/18/16 10/18/16 09:15 14:00 18:21 WBC RBC Hgb Hct MCV MCHC RDW Plt Count Seg Neuts % (Manual) Lymphocytes % (Manual) Nucleated RBC % Seg Neutrophils # Man Lymphocytes # (Manual) Haptoglobin PT INR Fibrinogen Lupus Anticoagulant LA PTT Baseline POC ABG pH POC ABG pCO2 POC ABG pO2 Sodium Potassium Chloride Carbon Dioxide BUN Creatinine Glucose POC Glucose 106 H 112 H Lactic Acid 14.30 H* Uric Acid Calcium Phosphorus Iron TIBC Ferritin Total Bilirubin Direct Bilirubin Lactate Dehydrogenase C-Reactive Protein Serum Total Protein Albumin Gwzyl-4-Kpnrnmbij Abnorm Protein Band 1 PEP Interpretation Crossmatch 10/18/16 10/18/16 10/18/16 19:58 20:55 22:11 WBC RBC Hgb Hct MCV MCHC RDW Plt Count Seg Neuts % (Manual) Lymphocytes % (Manual) Nucleated RBC % Seg Neutrophils # Man Lymphocytes # (Manual) Haptoglobin PT INR Fibrinogen Lupus Anticoagulant LA PTT Baseline POC ABG pH POC ABG pCO2 POC ABG pO2 Sodium Potassium Chloride Carbon Dioxide BUN Creatinine Glucose POC Glucose 127 H 125 H 159 H Lactic Acid Uric Acid Calcium Phosphorus Iron TIBC Ferritin Total Bilirubin Direct Bilirubin Lactate Dehydrogenase C-Reactive Protein Serum Total Protein Albumin Byycr-5-Ijerybcot Abnorm Protein Band 1 PEP Interpretation Crossmatch 10/18/16 10/18/16 10/19/16 23:11 23:57 01:06 WBC RBC Hgb Hct MCV MCHC RDW Plt Count Seg Neuts % (Manual) Lymphocytes % (Manual) Nucleated RBC % Seg Neutrophils # Man Lymphocytes # (Manual) Haptoglobin PT INR Fibrinogen Lupus Anticoagulant LA PTT Baseline POC ABG pH POC ABG pCO2 POC ABG pO2 Sodium Potassium Chloride Carbon Dioxide BUN Creatinine Glucose POC Glucose 122 H 137 H 162 H Lactic Acid Uric Acid Calcium Phosphorus Iron TIBC Ferritin Total Bilirubin Direct Bilirubin Lactate Dehydrogenase C-Reactive Protein Serum Total Protein Albumin Nuwug-8-Xrclljuel Abnorm Protein Band 1 PEP Interpretation Crossmatch 10/19/16 10/19/16 10/19/16 01:59 03:07 04:10 WBC RBC Hgb Hct MCV MCHC RDW Plt Count Seg Neuts % (Manual) Lymphocytes % (Manual) Nucleated RBC % Seg Neutrophils # Man Lymphocytes # (Manual) Haptoglobin PT INR Fibrinogen Lupus Anticoagulant LA PTT Baseline POC ABG pH POC ABG pCO2 POC ABG pO2 Sodium Potassium Chloride Carbon Dioxide BUN Creatinine Glucose POC Glucose 154 H 178 H 186 H Lactic Acid Uric Acid Calcium Phosphorus Iron TIBC Ferritin Total Bilirubin Direct Bilirubin Lactate Dehydrogenase C-Reactive Protein Serum Total Protein Albumin Fcqzm-5-Kvwwcfqky Abnorm Protein Band 1 PEP Interpretation Crossmatch 10/19/16 10/19/16 10/19/16 05:14 05:15 05:47 WBC RBC Hgb Hct MCV MCHC RDW Plt Count Seg Neuts % (Manual) Lymphocytes % (Manual) Nucleated RBC % Seg Neutrophils # Man Lymphocytes # (Manual) Haptoglobin PT INR Fibrinogen Lupus Anticoagulant LA PTT Baseline POC ABG pH 7.581 H POC ABG pCO2 22.9 L POC ABG pO2 58 L Sodium Potassium Chloride Carbon Dioxide BUN Creatinine Glucose POC Glucose 197 H 204 H Lactic Acid Uric Acid Calcium Phosphorus Iron TIBC Ferritin Total Bilirubin Direct Bilirubin Lactate Dehydrogenase C-Reactive Protein Serum Total Protein Albumin Dlnjl-0-Jtopvwxdw Abnorm Protein Band 1 PEP Interpretation Crossmatch 10/19/16 10/19/16 10/19/16 06:00 06:00 07:51 WBC 23.0 H RBC 2.54 L Hgb 7.5 L Hct 23.0 L MCV MCHC RDW 20.7 H Plt Count 25 L Seg Neuts % (Manual) 91.0 H Lymphocytes % (Manual) 2.0 L Nucleated RBC % 1.0 H Seg Neutrophils # Man 20.9 H Lymphocytes # (Manual) 0.5 L Haptoglobin PT INR Fibrinogen Lupus Anticoagulant LA PTT Baseline POC ABG pH POC ABG pCO2 POC ABG pO2 Sodium Potassium Chloride 88.7 L Carbon Dioxide 21 L BUN 70 H Creatinine 3.9 H Glucose 189 H POC Glucose 145 H Lactic Acid Uric Acid Calcium 5.6 L* Phosphorus 6.30 H Iron TIBC Ferritin Total Bilirubin Direct Bilirubin Lactate Dehydrogenase C-Reactive Protein Serum Total Protein Albumin Qlcib-8-Ukedpwfok Abnorm Protein Band 1 PEP Interpretation Crossmatch 10/19/16 09:14 WBC RBC Hgb Hct MCV MCHC RDW Plt Count Seg Neuts % (Manual) Lymphocytes % (Manual) Nucleated RBC % Seg Neutrophils # Man Lymphocytes # (Manual) Haptoglobin PT INR Fibrinogen Lupus Anticoagulant LA PTT Baseline POC ABG pH POC ABG pCO2 POC ABG pO2 Sodium Potassium Chloride Carbon Dioxide BUN Creatinine Glucose POC Glucose 173 H Lactic Acid Uric Acid Calcium Phosphorus Iron TIBC Ferritin Total Bilirubin Direct Bilirubin Lactate Dehydrogenase C-Reactive Protein Serum Total Protein Albumin Wrjcx-4-Veszmjtum Abnorm Protein Band 1 PEP Interpretation Crossmatch Allied health notes reviewed: RT
[2016-10-19 11:31] LABS: CYTOMETRY FIRST MARKER SCANNED INTO MED REC; FLOW CYTOMETRY >16 SCANNED INTO MED REC
--- NOTE | 2016-10-19 11:52 | Progress Note ---
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 Acute respiratory failure - intubated. Sepsis / beta hemolitic strep bacterimia / leukocytosis Paroxysmal atrial fibrillation with variable ventricular response --> SR Acute metabolic encephalopathy ARF on CKD - requiring HD Profound metabolic acidemia/lactic acidosis Anemia / thrombocytopenia Hypocalcemia Plan: Initiate PO amio, 200mg BID. D/c amio gtt 8 hours following first PO amio dose. Given anemia and thrombocytopenia, would defer systemic anticoagulation for now. Second blood culture with no growth after 48 hours. Consider ischemic evaluation when medically stabilized. No ACEI/ARB in setting of ARF on CKD. No BB in setting of hypotension. Watch volume status closely Poor prognosis. The patient has been seen in conjunction with Dr. Vargas who agrees with the assessment and plan of care. Subjective Date of service: 10/19/16 Principal diagnosis: Sepsis Syndrome; MAHA; RAJESH; CHF Interval history: Pt remains intubated, responding to some painful stimuli per RN at bedside. On amio gtt. Currently in SR. No family at bedside. Objective Last Vital Signs Temp 100.6 F H 10/19/16 08:00 Pulse 70 10/19/16 11:22 Resp 23 10/19/16 08:30 BP 144/88 10/19/16 11:22 Pulse Ox 100 10/19/16 11:22 - Physical Examination General: Other (intubated; nonresponsive ) Neck: Positive: neck supple, trachea midline Lungs: Positive: Decreased Breath Sounds, Oxygen, Ventilated Respirations Neuro: Positive: Other (intubated; nonresponsive ) Abdomen: Positive: Soft, Active Bowel Sounds Skin: Positive: Clear. Negative: Rash, Wound Musculoskeletal: No Fluid Collection, No Pain, Normal Range of Motion Extremities: Present: upper extr. pulses, lower extr. pulses. Absent: edema - Labs and Meds CBC 10/19/16 Range/Units 06:00 WBC 23.0 H (4.5-11.0) K/mm3 RBC 2.54 L (3.65-5.03) M/mm3 Hgb 7.5 L (11.8-15.2) gm/dl Hct 23.0 L (35.5-45.6) % Plt Count 25 L (140-440) K/mm3 Comprehensive Metabolic Panel 10/19/16 Range/Units 06:00 Sodium 137 (137-145) mmol/L Potassium 3.8 (3.6-5.0) mmol/L Chloride 88.7 L (98-107) mmol/L Carbon Dioxide 21 L (22-30) mmol/L BUN 70 H (9-20) mg/dL Creatinine 3.9 H (0.8-1.5) mg/dL Glucose 189 H (75-100) mg/dL Calcium 5.6 L* (8.4-10.2) mg/dL - Imaging and Cardiology EKG: report reviewed, image reviewed Echo: report reviewed - Telemetry EKG Rhythm: Sinus Rhythm - Allied health notes Allied health notes reviewed: RT
[2016-10-19] MEDS: CORDARONE PO SCH ×2 (12:44→21:22)
--- NOTE | 2016-10-19 13:13 | Consultation ---
History of Present Illness Consult date: 10/19/16 Requesting physician: SUKUMAR AGUIRRE Reason for Consult: anoxia?/ams Chief complaint: AMS limits direct hx History of present illness: 61 YO M no significant past medical history admitted 10/13 complaining of bilateral leg swelling that worsened for the last 4 days. He was found to have severe metabolic acidosis, creatinine was 14.5 with hyperkalemia. he was found have severe pancytopenia and thrombocytopenia. Emergent Hemodialysis was set up. He has had acute encephalopathy while sedated on propofol, Afib w/ RVR, beta hemolitic strep BACTERIMIA, Acute Respiratory failure with hypoxia s/p intubated, ? DIC vs. HUS vs. TTP on PLASMAPHERSIS, and severe sepsis. Sx are constant but waxing and waning. There are no clear aggravating, relieving or temporal factors. Severity is such to limit consciouness.. Past History Past Medical History: hypertension, other (Had shingles in November 27-) Past Surgical History: No surgical history Social history: , full code, other (Patienti s and lives with his ). denies: smoking, alcohol abuse, prescription drug abuse, IV drug use Family history: no significant family history Medications and Allergies Allergies Allergy/AdvReac Type Severity Reaction Status Date / Time No Known Allergies Allergy Unverified 10/13/16 09:41 Home Medications Medication Instructions Recorded Confirmed Last Taken Type Naproxen Sodium [Aleve TAB] 2 tab PO Q8H PRN 10/13/16 10/13/16 10/12/16 14:00 History Active Meds: Active Medications Acetaminophen (Tylenol) 650 mg PO Q6H PRN PRN Reason: pain Last Admin: 10/19/16 08:24 Dose: 650 mg Acetaminophen (Tylenol) 1,000 mg OH Q4H PRN PRN Reason: Pain, Mild (1-3) Last Admin: 10/17/16 18:15 Dose: 1,000 mg Amiodarone HCl (Cordarone) 200 mg PO BID [facility] Last Admin: 10/19/16 12:44 Dose: 200 mg Lipase/Protease/Amylase (Pancreaze Dr 10,500 Unit) 1 each FEEDTUBE PRN PRN PRN Reason: For Clogged Feeding Tube Dexamethasone (Decadron) 4 mg IV Q8H [facility] Last Admin: 10/19/16 12:37 Dose: 4 mg Dextrose (D50w (25gm)) 25 ml IV PRN PRN PRN Reason: Hypoglycemia Last Admin: 10/18/16 07:20 Dose: 25 ml Diphenhydramine HCl (Benadryl) 50 mg IV Q6H PRN PRN Reason: Itching Last Admin: 10/19/16 08:25 Dose: 50 mg Famotidine (Pepcid) 20 mg IV Q24H [facility] Last Admin: 10/18/16 20:20 Dose: 20 mg Haloperidol Lactate (Haldol) 5 mg IM Q6H PRN PRN Reason: Agitation Last Admin: 10/14/16 21:11 Dose: 5 mg Heparin Sodium (Porcine) (Heparin) 10,000 unit IV ROD PRN PRN Reason: for plasmapheresis- vascath Hydrophilic Ointment (Vaseline Lip Therapy) 1 applic TP Q2H PRN PRN Reason: Dry Lips Sodium Chloride (Nacl 0.9%) 100 mls @ 999 mls/hr IV ROD PRN PRN Reason: Hypotension Sodium Chloride (Nacl 0.9%) 100 mls @ 999 mls/hr IV ROD PRN PRN Reason: Hypotension Sodium Chloride (Nacl 0.9%) 100 mls @ 999 mls/hr IV ROD PRN PRN Reason: Hypotension Amiodarone HCl 900 mg/ (Dextrose) 500 mls @ 33.33 mls/hr IV DIRECT EDWINA; 1 MG /MIN PRN Reason: Protocol Stop: 10/19/16 20:00 Last Admin: 10/19/16 07:17 Dose: 0.5 mg/min, 16.66 mls/hr Clindamycin HCl (Cleocin 900 Mg/50 Ml) 900 mg in 50 mls @ 100 mls/hr IV Q8H [facility] PRN Reason: Protocol Last Admin: 10/19/16 12:36 Dose: 100 mls/hr Norepinephrine (Levophed Drip 4 Mg/Ns 250 Ml) 4 mg in 250 mls @ 7.5 mls/hr IV TITR EDWINA; 2 MCG/MIN PRN Reason: Protocol Last Titration: 10/19/16 12:59 Dose: 6 mcg/min, 22.5 mls/hr Propofol (Diprivan 10 Mg/Ml) 1,000 mg in 100 mls @ 1.827 mls/hr IV TITR EDWINA; 5 MCG/KG/MIN PRN Reason: Protocol Last Titration: 10/19/16 07:00 Dose: 10 mcg/kg/min, 3.654 mls/hr Fentanyl Citrate (Fentanyl Drip Premix) 2,000 mcg in 100 mls @ 3.045 mls/hr IV TITR EDWINA; 1 MCG/KG/HR PRN Reason: Protocol Dextrose/Sodium Chloride (D5/0.45ns) 1,000 mls @ 75 mls/hr IV DIRECT [facility] Last Admin: 10/19/16 04:54 Dose: 75 mls/hr Vancomycin HCl 1,250 mg/ (Sodium Chloride) 275 mls @ 166.667 mls/hr IV ONCE ONE Stop: 10/19/16 15:38 Multi-Ingred Cream/Lotion/Oil/Oint (Artificial Tears Ophth Oint) 1 applic OU Q4H PRN PRN Reason: Dry Eye(s) Ondansetron HCl (Zofran) 4 mg IV Q8H PRN PRN Reason: Nausea And Vomiting Simple Syrup (Simple Syrup) 15 ml FEEDTUBE PRN PRN PRN Reason: Hypoglycemia Simple Syrup (Simple Syrup) 30 ml FEEDTUBE PRN PRN PRN Reason: Hypoglycemia Sodium Bicarbonate (Sodium Bicarbonate) 325 mg FEEDTUBE PRN PRN PRN Reason: For Clogged Feeding Tube Sodium Chloride (Sodium Chloride Flush Syringe 10 Ml) 10 ml IV PRN PRN PRN Reason: LINE FLUSH Last Admin: 10/17/16 20:45 Dose: 10 ml Vancomycin HCl (Vancomycin Pharmacy To Dose) 1 each IV PKCONSULT EDWINA PRN Reason: Protocol Review of Systems ROS unobtainable: due to endotracheal tube, due to mental status Physical Examination - Vital Signs Vital Signs: Vital Signs Temp Pulse Resp BP Pulse Ox 98.2 F 89 18 133/86 98 10/13/16 09:38 10/13/16 09:38 10/13/16 09:38 10/13/16 09:38 10/13/16 09:38 - Constitutional General appearance: acutely ill - EENT EENT: Present: ATNC, PERRL, mucous membranes dry - Respiratory Respiratory: Present: chest non-tender, no respiratory distress, decreased breath sounds - Cardiovascular Cardiovascular: Present: regular rate Extremities: Present: no inflammation, no ischemia or petechiae - Gastrointestinal Gastrointestinal: Present: normoactive bowel sounds, soft, non-distended - Integumentary Integumentary: Present: erythema - Neurologic Cranial nerve examination: PERRL, face symmetric, Intact Vestibulo-ocular r, intact corneal reflex Speech examination: other (no speech output, doesnt follow commands) Sensorimotor examination: intact (withdrawal to pain in UE) Detailed motor examination: grossly full strength in Motor examination - right side: 1/5: hip flexors, knee extensors, dorsiflexion, toe extension (EHL), plantarflexion, 4/5: biceps, triceps, wrist flexion, wrist extension, order editor Motor examination - left side: 1/5: hip flexors, knee extensors, dorsiflexion, toe extension (EHL), plantarflexion, 4/5: biceps, triceps, wrist flexion, wrist extension, order editor Detailed sensory examination: intact, pain Reflex and gait examination: intact Reflexes: 0: ankle, 1+: bicep, knee, tricep - Musculoskeletal Musculoskeletal: Present: no pain, normal range of motion Results - Laboratory Findings CBC and BMP: 10/19/16 06:00 10/19/16 06:00 Abnormal Lab Findings: Abnormal Labs 10/13/16 10/13/16 10/13/16 14:50 21:40 22:05 WBC RBC Hgb Hct MCV MCHC RDW Plt Count Seg Neuts % (Manual) Lymphocytes % (Manual) Nucleated RBC % Seg Neutrophils # Man Lymphocytes # (Manual) Haptoglobin PT INR Fibrinogen Lupus Anticoagulant LA PTT Baseline POC ABG pH POC ABG pCO2 POC ABG pO2 Sodium Potassium Chloride Carbon Dioxide BUN Creatinine Glucose POC Glucose 52 L 43 L Lactic Acid Uric Acid Calcium Phosphorus Iron TIBC Ferritin Total Bilirubin Direct Bilirubin Lactate Dehydrogenase C-Reactive Protein Serum Total Protein 5.6 L Albumin 2.2 L Zkblz-8-Spqazimdd 0.5 H Abnorm Protein Band 1 1.4 H PEP Interpretation see below H Crossmatch 10/13/16 10/14/16 10/14/16 23:18 03:00 03:00 WBC RBC Hgb Hct MCV MCHC RDW Plt Count Seg Neuts % (Manual) Lymphocytes % (Manual) Nucleated RBC % Seg Neutrophils # Man Lymphocytes # (Manual) Haptoglobin PT INR Fibrinogen Lupus Anticoagulant see below H LA PTT Baseline 55 H POC ABG pH POC ABG pCO2 POC ABG pO2 Sodium Potassium Chloride Carbon Dioxide BUN Creatinine Glucose POC Glucose 113 H Lactic Acid Uric Acid Calcium Phosphorus Iron TIBC Ferritin Total Bilirubin Direct Bilirubin Lactate Dehydrogenase 406 H C-Reactive Protein Serum Total Protein Albumin Thxsl-9-Iaaulfmuc Abnorm Protein Band 1 PEP Interpretation Crossmatch 10/14/16 10/14/16 10/14/16 03:00 03:00 04:34 WBC 1.3 L* RBC 2.33 L Hgb 7.3 L Hct 21.7 L MCV MCHC RDW 19.8 H Plt Count 99 L Seg Neuts % (Manual) Lymphocytes % (Manual) 3.0 L Nucleated RBC % Seg Neutrophils # Man 0.9 L Lymphocytes # (Manual) 0.0 L Haptoglobin PT INR Fibrinogen Lupus Anticoagulant LA PTT Baseline POC ABG pH POC ABG pCO2 POC ABG pO2 Sodium Potassium Chloride Carbon Dioxide 18 L BUN 73 H Creatinine 9.8 H Glucose 59 L POC Glucose Lactic Acid Uric Acid 8.0 H Calcium 8.2 L Phosphorus 6.60 H Iron 13 L TIBC 160 L Ferritin Total Bilirubin Direct Bilirubin Lactate Dehydrogenase C-Reactive Protein Serum Total Protein Albumin Wazyn-2-Fsbrgrnke Abnorm Protein Band 1 PEP Interpretation Crossmatch 10/14/16 10/14/16 10/14/16 05:27 06:29 07:34 WBC RBC Hgb Hct MCV MCHC RDW Plt Count Seg Neuts % (Manual) Lymphocytes % (Manual) Nucleated RBC % Seg Neutrophils # Man Lymphocytes # (Manual) Haptoglobin PT INR Fibrinogen Lupus Anticoagulant LA PTT Baseline POC ABG pH POC ABG pCO2 POC ABG pO2 Sodium Potassium Chloride Carbon Dioxide BUN Creatinine Glucose POC Glucose < 40 L 63 L < 40 L Lactic Acid Uric Acid Calcium Phosphorus Iron TIBC Ferritin Total Bilirubin Direct Bilirubin Lactate Dehydrogenase C-Reactive Protein Serum Total Protein Albumin Ajfum-6-Tcjbmkdhh Abnorm Protein Band 1 PEP Interpretation Crossmatch 10/14/16 10/14/16 10/14/16 09:58 09:58 09:58 WBC RBC Hgb Hct MCV MCHC RDW Plt Count Seg Neuts % (Manual) Lymphocytes % (Manual) Nucleated RBC % Seg Neutrophils # Man Lymphocytes # (Manual) Haptoglobin 218 H PT INR Fibrinogen 557 H Lupus Anticoagulant LA PTT Baseline POC ABG pH POC ABG pCO2 POC ABG pO2 Sodium Potassium Chloride Carbon Dioxide BUN Creatinine Glucose POC Glucose Lactic Acid Uric Acid Calcium Phosphorus Iron TIBC Ferritin Total Bilirubin 1.30 H Direct Bilirubin 1.1 H Lactate Dehydrogenase C-Reactive Protein Serum Total Protein Albumin Vrwxs-7-Icacizcdl Abnorm Protein Band 1 PEP Interpretation Crossmatch 10/14/16 10/14/16 10/14/16 10:57 11:15 12:52 WBC RBC Hgb Hct MCV MCHC RDW Plt Count Seg Neuts % (Manual) Lymphocytes % (Manual) Nucleated RBC % Seg Neutrophils # Man Lymphocytes # (Manual) Haptoglobin PT INR Fibrinogen Lupus Anticoagulant LA PTT Baseline POC ABG pH POC ABG pCO2 POC ABG pO2 Sodium Potassium Chloride Carbon Dioxide BUN Creatinine Glucose POC Glucose < 40 L < 40 L Lactic Acid 9.60 H* Uric Acid Calcium Phosphorus Iron TIBC Ferritin Total Bilirubin Direct Bilirubin Lactate Dehydrogenase C-Reactive Protein Serum Total Protein Albumin Scgfp-4-Xpmpuxhoz Abnorm Protein Band 1 PEP Interpretation Crossmatch 10/14/16 10/14/16 10/14/16 12:52 13:17 14:12 WBC RBC Hgb Hct MCV MCHC RDW Plt Count Seg Neuts % (Manual) Lymphocytes % (Manual) Nucleated RBC % Seg Neutrophils # Man Lymphocytes # (Manual) Haptoglobin PT INR Fibrinogen Lupus Anticoagulant LA PTT Baseline POC ABG pH POC ABG pCO2 POC ABG pO2 Sodium Potassium Chloride Carbon Dioxide BUN Creatinine Glucose POC Glucose < 40 L < 40 L Lactic Acid Uric Acid Calcium Phosphorus Iron TIBC Ferritin Total Bilirubin Direct Bilirubin Lactate Dehydrogenase C-Reactive Protein 40.40 H Serum Total Protein Albumin Dzqnm-2-Xqscmxphn Abnorm Protein Band 1 PEP Interpretation Crossmatch 10/14/16 10/14/16 10/14/16 15:02 15:33 15:33 WBC RBC Hgb Hct MCV MCHC RDW Plt Count Seg Neuts % (Manual) Lymphocytes % (Manual) Nucleated RBC % Seg Neutrophils # Man Lymphocytes # (Manual) Haptoglobin PT INR Fibrinogen Lupus Anticoagulant LA PTT Baseline POC ABG pH POC ABG pCO2 POC ABG pO2 Sodium Potassium Chloride Carbon Dioxide BUN Creatinine Glucose 19 L* POC Glucose < 40 L Lactic Acid 11.60 H* Uric Acid Calcium Phosphorus Iron TIBC Ferritin Total Bilirubin Direct Bilirubin Lactate Dehydrogenase C-Reactive Protein Serum Total Protein Albumin Mpwkh-6-Axxislmrg Abnorm Protein Band 1 PEP Interpretation Crossmatch 10/14/16 10/14/16 10/14/16 17:14 18:03 21:25 WBC RBC Hgb Hct MCV MCHC RDW Plt Count Seg Neuts % (Manual) Lymphocytes % (Manual) Nucleated RBC % Seg Neutrophils # Man Lymphocytes # (Manual) Haptoglobin PT 28.9 H INR 2.71 H Fibrinogen Lupus Anticoagulant LA PTT Baseline POC ABG pH POC ABG pCO2 POC ABG pO2 Sodium Potassium Chloride Carbon Dioxide BUN Creatinine Glucose POC Glucose < 40 L 57 L Lactic Acid Uric Acid Calcium Phosphorus Iron TIBC Ferritin Total Bilirubin Direct Bilirubin Lactate Dehydrogenase C-Reactive Protein Serum Total Protein Albumin Kyngt-1-Hdgncghnb Abnorm Protein Band 1 PEP Interpretation Crossmatch 10/15/16 10/15/16 10/15/16 05:32 05:35 05:35 WBC RBC 2.62 L Hgb 8.1 L Hct 25.8 L MCV 98 H D MCHC 31 L RDW 21.2 H Plt Count 61 L Seg Neuts % (Manual) 27.0 L Lymphocytes % (Manual) 10.0 L Nucleated RBC % 2.0 H Seg Neutrophils # Man Lymphocytes # (Manual) 0.8 L Haptoglobin PT INR Fibrinogen Lupus Anticoagulant LA PTT Baseline POC ABG pH POC ABG pCO2 POC ABG pO2 Sodium Potassium Chloride Carbon Dioxide BUN Creatinine Glucose POC Glucose < 40 L Lactic Acid Uric Acid Calcium Phosphorus Iron TIBC Ferritin Total Bilirubin Direct Bilirubin Lactate Dehydrogenase 3871 H C-Reactive Protein Serum Total Protein Albumin Brogz-5-Ddaibmjoj Abnorm Protein Band 1 PEP Interpretation Crossmatch 10/15/16 10/15/16 10/15/16 05:35 05:35 05:35 WBC RBC Hgb Hct MCV MCHC RDW Plt Count Seg Neuts % (Manual) Lymphocytes % (Manual) Nucleated RBC % Seg Neutrophils # Man Lymphocytes # (Manual) Haptoglobin PT INR Fibrinogen Lupus Anticoagulant LA PTT Baseline POC ABG pH POC ABG pCO2 POC ABG pO2 Sodium 136 L Potassium 5.3 H D Chloride 91.4 L Carbon Dioxide 6 L* D BUN 57 H Creatinine 7.1 H Glucose 11 L* POC Glucose Lactic Acid 13.60 H* Uric Acid Calcium 7.7 L Phosphorus 10.10 H D Iron TIBC 166 L Ferritin 9562.0 H Total Bilirubin Direct Bilirubin Lactate Dehydrogenase C-Reactive Protein Serum Total Protein Albumin Xpbsv-0-Sowckspvl Abnorm Protein Band 1 PEP Interpretation Crossmatch 10/15/16 10/15/16 10/15/16 05:51 06:22 06:52 WBC RBC Hgb Hct MCV MCHC RDW Plt Count Seg Neuts % (Manual) Lymphocytes % (Manual) Nucleated RBC % Seg Neutrophils # Man Lymphocytes # (Manual) Haptoglobin PT INR Fibrinogen Lupus Anticoagulant LA PTT Baseline POC ABG pH 7.189 L POC ABG pCO2 28.9 L POC ABG pO2 Sodium Potassium Chloride Carbon Dioxide BUN Creatinine Glucose POC Glucose 59 L 111 H Lactic Acid Uric Acid Calcium Phosphorus Iron TIBC Ferritin Total Bilirubin Direct Bilirubin Lactate Dehydrogenase C-Reactive Protein Serum Total Protein Albumin Kyumr-6-Kokbiwsqi Abnorm Protein Band 1 PEP Interpretation Crossmatch 10/15/16 10/15/16 10/15/16 08:00 09:57 11:42 WBC RBC Hgb Hct MCV MCHC RDW Plt Count Seg Neuts % (Manual) Lymphocytes % (Manual) Nucleated RBC % Seg Neutrophils # Man Lymphocytes # (Manual) Haptoglobin PT INR Fibrinogen Lupus Anticoagulant LA PTT Baseline POC ABG pH POC ABG pCO2 POC ABG pO2 Sodium Potassium Chloride Carbon Dioxide BUN Creatinine Glucose POC Glucose 63 L 143 H 203 H Lactic Acid Uric Acid Calcium Phosphorus Iron TIBC Ferritin Total Bilirubin Direct Bilirubin Lactate Dehydrogenase C-Reactive Protein Serum Total Protein Albumin Oiurz-5-Ayqzhjlmz Abnorm Protein Band 1 PEP Interpretation Crossmatch 10/15/16 10/15/16 10/15/16 12:00 12:00 13:00 WBC RBC Hgb Hct MCV MCHC RDW Plt Count Seg Neuts % (Manual) Lymphocytes % (Manual) Nucleated RBC % Seg Neutrophils # Man Lymphocytes # (Manual) Haptoglobin <15 L PT INR Fibrinogen Lupus Anticoagulant LA PTT Baseline POC ABG pH POC ABG pCO2 POC ABG pO2 Sodium Potassium Chloride Carbon Dioxide BUN Creatinine Glucose POC Glucose 136 H Lactic Acid 16.30 H* Uric Acid Calcium Phosphorus Iron TIBC Ferritin Total Bilirubin Direct Bilirubin Lactate Dehydrogenase C-Reactive Protein Serum Total Protein Albumin Fjgsk-3-Updqqjhvk Abnorm Protein Band 1 PEP Interpretation Crossmatch 10/15/16 10/15/16 10/15/16 14:06 15:15 16:23 WBC RBC Hgb Hct MCV MCHC RDW Plt Count Seg Neuts % (Manual) Lymphocytes % (Manual) Nucleated RBC % Seg Neutrophils # Man Lymphocytes # (Manual) Haptoglobin PT INR Fibrinogen Lupus Anticoagulant LA PTT Baseline POC ABG pH POC ABG pCO2 POC ABG pO2 Sodium Potassium Chloride Carbon Dioxide BUN Creatinine Glucose POC Glucose 132 H 64 L Lactic Acid 20.40 H* Uric Acid Calcium Phosphorus Iron TIBC Ferritin Total Bilirubin Direct Bilirubin Lactate Dehydrogenase C-Reactive Protein Serum Total Protein Albumin Orvqu-9-Vckdjgqky Abnorm Protein Band 1 PEP Interpretation Crossmatch 10/15/16 10/15/16 10/15/16 16:40 17:00 17:10 WBC RBC Hgb Hct MCV MCHC RDW Plt Count Seg Neuts % (Manual) Lymphocytes % (Manual) Nucleated RBC % Seg Neutrophils # Man Lymphocytes # (Manual) Haptoglobin PT INR Fibrinogen Lupus Anticoagulant LA PTT Baseline POC ABG pH 7.323 L POC ABG pCO2 25.8 L POC ABG pO2 135 H Sodium Potassium Chloride Carbon Dioxide BUN Creatinine Glucose POC Glucose 159 H Lactic Acid 20.20 H* Uric Acid Calcium Phosphorus Iron TIBC Ferritin Total Bilirubin Direct Bilirubin Lactate Dehydrogenase C-Reactive Protein Serum Total Protein Albumin Piwgf-0-Eevcwzfbz Abnorm Protein Band 1 PEP Interpretation Crossmatch 10/15/16 10/15/16 10/15/16 17:46 17:53 18:45 WBC RBC Hgb Hct MCV MCHC RDW Plt Count Seg Neuts % (Manual) Lymphocytes % (Manual) Nucleated RBC % Seg Neutrophils # Man Lymphocytes # (Manual) Haptoglobin PT INR Fibrinogen Lupus Anticoagulant LA PTT Baseline POC ABG pH POC ABG pCO2 POC ABG pO2 Sodium Potassium Chloride Carbon Dioxide BUN Creatinine Glucose POC Glucose 126 H 143 H Lactic Acid 21.40 H* Uric Acid Calcium Phosphorus Iron TIBC Ferritin Total Bilirubin Direct Bilirubin Lactate Dehydrogenase C-Reactive Protein Serum Total Protein Albumin Rfnwp-7-Wrinvvnis Abnorm Protein Band 1 PEP Interpretation Crossmatch 10/15/16 10/15/16 10/16/16 20:03 22:59 00:06 WBC RBC Hgb Hct MCV MCHC RDW Plt Count Seg Neuts % (Manual) Lymphocytes % (Manual) Nucleated RBC % Seg Neutrophils # Man Lymphocytes # (Manual) Haptoglobin PT INR Fibrinogen Lupus Anticoagulant LA PTT Baseline POC ABG pH POC ABG pCO2 POC ABG pO2 Sodium Potassium Chloride Carbon Dioxide BUN Creatinine Glucose POC Glucose 66 L 53 L 126 H Lactic Acid Uric Acid Calcium Phosphorus Iron TIBC Ferritin Total Bilirubin Direct Bilirubin Lactate Dehydrogenase C-Reactive Protein Serum Total Protein Albumin Gtohx-3-Akylkdidr Abnorm Protein Band 1 PEP Interpretation Crossmatch 10/16/16 10/16/16 10/16/16 01:03 03:55 04:00 WBC RBC Hgb Hct MCV MCHC RDW Plt Count Seg Neuts % (Manual) Lymphocytes % (Manual) Nucleated RBC % Seg Neutrophils # Man Lymphocytes # (Manual) Haptoglobin PT INR Fibrinogen Lupus Anticoagulant LA PTT Baseline POC ABG pH POC ABG pCO2 POC ABG pO2 Sodium Potassium Chloride Carbon Dioxide BUN Creatinine Glucose POC Glucose 107 H 260 H Lactic Acid 18.00 H* Uric Acid Calcium Phosphorus Iron TIBC Ferritin Total Bilirubin Direct Bilirubin Lactate Dehydrogenase C-Reactive Protein Serum Total Protein Albumin Ftwbw-4-Nauvntufz Abnorm Protein Band 1 PEP Interpretation Crossmatch 10/16/16 10/16/16 10/16/16 04:03 07:58 08:34 WBC RBC Hgb Hct MCV MCHC RDW Plt Count Seg Neuts % (Manual) Lymphocytes % (Manual) Nucleated RBC % Seg Neutrophils # Man Lymphocytes # (Manual) Haptoglobin PT INR Fibrinogen Lupus Anticoagulant LA PTT Baseline POC ABG pH 7.527 H POC ABG pCO2 32.9 L POC ABG pO2 119 H Sodium Potassium Chloride Carbon Dioxide BUN Creatinine Glucose POC Glucose 120 H 66 L Lactic Acid Uric Acid Calcium Phosphorus Iron TIBC Ferritin Total Bilirubin Direct Bilirubin Lactate Dehydrogenase C-Reactive Protein Serum Total Protein Albumin Aduly-8-Mrwdfuqhu Abnorm Protein Band 1 PEP Interpretation Crossmatch 10/16/16 10/16/16 10/16/16 09:13 10:06 10:57 WBC RBC Hgb Hct MCV MCHC RDW Plt Count Seg Neuts % (Manual) Lymphocytes % (Manual) Nucleated RBC % Seg Neutrophils # Man Lymphocytes # (Manual) Haptoglobin PT INR Fibrinogen Lupus Anticoagulant LA PTT Baseline POC ABG pH POC ABG pCO2 POC ABG pO2 Sodium Potassium Chloride Carbon Dioxide BUN Creatinine Glucose POC Glucose 147 H 137 H 140 H Lactic Acid Uric Acid Calcium Phosphorus Iron TIBC Ferritin Total Bilirubin Direct Bilirubin Lactate Dehydrogenase C-Reactive Protein Serum Total Protein Albumin Kzbvy-9-Scjitnnyc Abnorm Protein Band 1 PEP Interpretation Crossmatch 10/16/16 10/16/16 10/16/16 11:15 11:15 11:15 WBC 25.8 H RBC 2.30 L Hgb 7.0 L Hct 22.3 L MCV 97 H MCHC 31 L RDW 21.2 H Plt Count 42 L Seg Neuts % (Manual) Lymphocytes % (Manual) 3.0 L Nucleated RBC % 2.0 H Seg Neutrophils # Man 11.1 H Lymphocytes # (Manual) 0.8 L Haptoglobin PT INR Fibrinogen Lupus Anticoagulant LA PTT Baseline POC ABG pH POC ABG pCO2 POC ABG pO2 Sodium Potassium Chloride 81.7 L Carbon Dioxide 13 L D BUN 61 H Creatinine 6.2 H Glucose 171 H POC Glucose Lactic Acid 22.70 H* Uric Acid Calcium 7.1 L Phosphorus 9.10 H Iron TIBC Ferritin Total Bilirubin Direct Bilirubin Lactate Dehydrogenase C-Reactive Protein Serum Total Protein Albumin Wbyqr-7-Tshtsocvu Abnorm Protein Band 1 PEP Interpretation Crossmatch 10/16/16 10/16/16 10/16/16 15:10 15:50 18:11 WBC RBC Hgb Hct MCV MCHC RDW Plt Count Seg Neuts % (Manual) Lymphocytes % (Manual) Nucleated RBC % Seg Neutrophils # Man Lymphocytes # (Manual) Haptoglobin PT INR Fibrinogen Lupus Anticoagulant LA PTT Baseline POC ABG pH POC ABG pCO2 POC ABG pO2 Sodium Potassium Chloride Carbon Dioxide BUN Creatinine Glucose POC Glucose 47 L 164 H 58 L Lactic Acid Uric Acid Calcium Phosphorus Iron TIBC Ferritin Total Bilirubin Direct Bilirubin Lactate Dehydrogenase C-Reactive Protein Serum Total Protein Albumin Fauws-9-Bojgcmmwf Abnorm Protein Band 1 PEP Interpretation Crossmatch 10/16/16 10/16/16 10/17/16 18:26 21:06 00:06 WBC RBC Hgb Hct MCV MCHC RDW Plt Count Seg Neuts % (Manual) Lymphocytes % (Manual) Nucleated RBC % Seg Neutrophils # Man Lymphocytes # (Manual) Haptoglobin PT INR Fibrinogen Lupus Anticoagulant LA PTT Baseline POC ABG pH POC ABG pCO2 POC ABG pO2 489 H Sodium Potassium Chloride Carbon Dioxide BUN Creatinine Glucose POC Glucose 52 L 120 H Lactic Acid Uric Acid Calcium Phosphorus Iron TIBC Ferritin Total Bilirubin Direct Bilirubin Lactate Dehydrogenase C-Reactive Protein Serum Total Protein Albumin Kwipq-8-Bjtmqxfdv Abnorm Protein Band 1 PEP Interpretation Crossmatch 10/17/16 10/17/16 10/17/16 04:55 04:55 05:04 WBC 25.5 H RBC 2.23 L Hgb 6.6 L Hct 21.2 L MCV 95 H MCHC 31 L RDW 20.5 H Plt Count 35 L Seg Neuts % (Manual) 79.0 H Lymphocytes % (Manual) 0 L Nucleated RBC % Seg Neutrophils # Man 20.1 H Lymphocytes # (Manual) 0.0 L Haptoglobin PT INR Fibrinogen Lupus Anticoagulant LA PTT Baseline POC ABG pH POC ABG pCO2 27.2 L POC ABG pO2 162 H Sodium Potassium Chloride 91.5 L Carbon Dioxide 16 L BUN 45 H Creatinine 4.5 H Glucose 103 H POC Glucose Lactic Acid Uric Acid Calcium 6.9 L Phosphorus 5.80 H D Iron TIBC Ferritin Total Bilirubin Direct Bilirubin Lactate Dehydrogenase C-Reactive Protein Serum Total Protein Albumin Ahqjl-1-Tdaumeeek Abnorm Protein Band 1 PEP Interpretation Crossmatch 10/17/16 10/17/16 10/17/16 07:59 09:04 10:04 WBC RBC Hgb Hct MCV MCHC RDW Plt Count Seg Neuts % (Manual) Lymphocytes % (Manual) Nucleated RBC % Seg Neutrophils # Man Lymphocytes # (Manual) Haptoglobin PT INR Fibrinogen Lupus Anticoagulant LA PTT Baseline POC ABG pH POC ABG pCO2 POC ABG pO2 Sodium Potassium Chloride Carbon Dioxide BUN Creatinine Glucose POC Glucose 65 L 118 H Lactic Acid Uric Acid Calcium Phosphorus Iron TIBC Ferritin Total Bilirubin Direct Bilirubin Lactate Dehydrogenase C-Reactive Protein Serum Total Protein Albumin Jryga-7-Buvfssghs Abnorm Protein Band 1 PEP Interpretation Crossmatch See Detail 10/17/16 10/17/16 10/17/16 11:52 13:08 15:42 WBC RBC Hgb Hct MCV MCHC RDW Plt Count Seg Neuts % (Manual) Lymphocytes % (Manual) Nucleated RBC % Seg Neutrophils # Man Lymphocytes # (Manual) Haptoglobin PT INR Fibrinogen Lupus Anticoagulant LA PTT Baseline POC ABG pH POC ABG pCO2 POC ABG pO2 Sodium Potassium Chloride Carbon Dioxide BUN Creatinine Glucose POC Glucose 125 H 106 H 55 L Lactic Acid Uric Acid Calcium Phosphorus Iron TIBC Ferritin Total Bilirubin Direct Bilirubin Lactate Dehydrogenase C-Reactive Protein Serum Total Protein Albumin Sfsmj-7-Zjtmxxyah Abnorm Protein Band 1 PEP Interpretation Crossmatch 10/17/16 10/17/16 10/17/16 17:39 20:37 21:02 WBC RBC Hgb Hct MCV MCHC RDW Plt Count Seg Neuts % (Manual) Lymphocytes % (Manual) Nucleated RBC % Seg Neutrophils # Man Lymphocytes # (Manual) Haptoglobin PT INR Fibrinogen Lupus Anticoagulant LA PTT Baseline POC ABG pH POC ABG pCO2 28.2 L POC ABG pO2 Sodium Potassium Chloride Carbon Dioxide BUN Creatinine Glucose POC Glucose < 40 L 106 H Lactic Acid Uric Acid Calcium Phosphorus Iron TIBC Ferritin Total Bilirubin Direct Bilirubin Lactate Dehydrogenase C-Reactive Protein Serum Total Protein Albumin Vmmqi-0-Qqzplqgpa Abnorm Protein Band 1 PEP Interpretation Crossmatch 10/17/16 10/17/16 10/18/16 22:18 23:14 00:28 WBC RBC Hgb Hct MCV MCHC RDW Plt Count Seg Neuts % (Manual) Lymphocytes % (Manual) Nucleated RBC % Seg Neutrophils # Man Lymphocytes # (Manual) Haptoglobin PT INR Fibrinogen Lupus Anticoagulant LA PTT Baseline POC ABG pH POC ABG pCO2 POC ABG pO2 Sodium Potassium Chloride Carbon Dioxide BUN Creatinine Glucose POC Glucose 111 H 118 H 112 H Lactic Acid Uric Acid Calcium Phosphorus Iron TIBC Ferritin Total Bilirubin Direct Bilirubin Lactate Dehydrogenase C-Reactive Protein Serum Total Protein Albumin Ryxpa-1-Xloukarbj Abnorm Protein Band 1 PEP Interpretation Crossmatch 10/18/16 10/18/16 10/18/16 05:00 05:00 05:15 WBC 27.3 H RBC 2.75 L Hgb 7.9 L Hct 25.3 L MCV MCHC 31 L RDW 20.7 H Plt Count 31 L Seg Neuts % (Manual) 87.0 H Lymphocytes % (Manual) 1.0 L Nucleated RBC % 1.0 H Seg Neutrophils # Man 23.8 H Lymphocytes # (Manual) 0.3 L Haptoglobin PT INR Fibrinogen Lupus Anticoagulant LA PTT Baseline POC ABG pH 7.466 H POC ABG pCO2 25.1 L POC ABG pO2 Sodium Potassium Chloride 88.7 L Carbon Dioxide 18 L BUN 66 H Creatinine 4.7 H Glucose POC Glucose Lactic Acid Uric Acid Calcium 6.1 L Phosphorus 7.30 H D Iron TIBC Ferritin Total Bilirubin Direct Bilirubin Lactate Dehydrogenase C-Reactive Protein Serum Total Protein Albumin Qxllm-9-Sbzbruuyg Abnorm Protein Band 1 PEP Interpretation Crossmatch 10/18/16 10/18/16 10/18/16 07:15 07:44 09:07 WBC RBC Hgb Hct MCV MCHC RDW Plt Count Seg Neuts % (Manual) Lymphocytes % (Manual) Nucleated RBC % Seg Neutrophils # Man Lymphocytes # (Manual) Haptoglobin PT INR Fibrinogen Lupus Anticoagulant LA PTT Baseline POC ABG pH POC ABG pCO2 POC ABG pO2 Sodium Potassium Chloride Carbon Dioxide BUN Creatinine Glucose POC Glucose 64 L 156 H 117 H Lactic Acid Uric Acid Calcium Phosphorus Iron TIBC Ferritin Total Bilirubin Direct Bilirubin Lactate Dehydrogenase C-Reactive Protein Serum Total Protein Albumin Motkc-8-Afkmaxyeg Abnorm Protein Band 1 PEP Interpretation Crossmatch 10/18/16 10/18/16 10/18/16 09:15 14:00 18:21 WBC RBC Hgb Hct MCV MCHC RDW Plt Count Seg Neuts % (Manual) Lymphocytes % (Manual) Nucleated RBC % Seg Neutrophils # Man Lymphocytes # (Manual) Haptoglobin PT INR Fibrinogen Lupus Anticoagulant LA PTT Baseline POC ABG pH POC ABG pCO2 POC ABG pO2 Sodium Potassium Chloride Carbon Dioxide BUN Creatinine Glucose POC Glucose 106 H 112 H Lactic Acid 14.30 H* Uric Acid Calcium Phosphorus Iron TIBC Ferritin Total Bilirubin Direct Bilirubin Lactate Dehydrogenase C-Reactive Protein Serum Total Protein Albumin Kldsm-9-Vjtjsguxa Abnorm Protein Band 1 PEP Interpretation Crossmatch 10/18/16 10/18/16 10/18/16 19:58 20:55 22:11 WBC RBC Hgb Hct MCV MCHC RDW Plt Count Seg Neuts % (Manual) Lymphocytes % (Manual) Nucleated RBC % Seg Neutrophils # Man Lymphocytes # (Manual) Haptoglobin PT INR Fibrinogen Lupus Anticoagulant LA PTT Baseline POC ABG pH POC ABG pCO2 POC ABG pO2 Sodium Potassium Chloride Carbon Dioxide BUN Creatinine Glucose POC Glucose 127 H 125 H 159 H Lactic Acid Uric Acid Calcium Phosphorus Iron TIBC Ferritin Total Bilirubin Direct Bilirubin Lactate Dehydrogenase C-Reactive Protein Serum Total Protein Albumin Ddrzr-0-Kgbpyrybc Abnorm Protein Band 1 PEP Interpretation Crossmatch 10/18/16 10/18/16 10/19/16 23:11 23:57 01:06 WBC RBC Hgb Hct MCV MCHC RDW Plt Count Seg Neuts % (Manual) Lymphocytes % (Manual) Nucleated RBC % Seg Neutrophils # Man Lymphocytes # (Manual) Haptoglobin PT INR Fibrinogen Lupus Anticoagulant LA PTT Baseline POC ABG pH POC ABG pCO2 POC ABG pO2 Sodium Potassium Chloride Carbon Dioxide BUN Creatinine Glucose POC Glucose 122 H 137 H 162 H Lactic Acid Uric Acid Calcium Phosphorus Iron TIBC Ferritin Total Bilirubin Direct Bilirubin Lactate Dehydrogenase C-Reactive Protein Serum Total Protein Albumin Qbjlw-7-Fzqlazpal Abnorm Protein Band 1 PEP Interpretation Crossmatch 10/19/16 10/19/16 10/19/16 01:59 03:07 04:10 WBC RBC Hgb Hct MCV MCHC RDW Plt Count Seg Neuts % (Manual) Lymphocytes % (Manual) Nucleated RBC % Seg Neutrophils # Man Lymphocytes # (Manual) Haptoglobin PT INR Fibrinogen Lupus Anticoagulant LA PTT Baseline POC ABG pH POC ABG pCO2 POC ABG pO2 Sodium Potassium Chloride Carbon Dioxide BUN Creatinine Glucose POC Glucose 154 H 178 H 186 H Lactic Acid Uric Acid Calcium Phosphorus Iron TIBC Ferritin Total Bilirubin Direct Bilirubin Lactate Dehydrogenase C-Reactive Protein Serum Total Protein Albumin Ibgoh-7-Vymiuzlwv Abnorm Protein Band 1 PEP Interpretation Crossmatch 10/19/16 10/19/16 10/19/16 05:14 05:15 05:47 WBC RBC Hgb Hct MCV MCHC RDW Plt Count Seg Neuts % (Manual) Lymphocytes % (Manual) Nucleated RBC % Seg Neutrophils # Man Lymphocytes # (Manual) Haptoglobin PT INR Fibrinogen Lupus Anticoagulant LA PTT Baseline POC ABG pH 7.581 H POC ABG pCO2 22.9 L POC ABG pO2 58 L Sodium Potassium Chloride Carbon Dioxide BUN Creatinine Glucose POC Glucose 197 H 204 H Lactic Acid Uric Acid Calcium Phosphorus Iron TIBC Ferritin Total Bilirubin Direct Bilirubin Lactate Dehydrogenase C-Reactive Protein Serum Total Protein Albumin Nbjdx-3-Ltvjdudsl Abnorm Protein Band 1 PEP Interpretation Crossmatch 10/19/16 10/19/16 10/19/16 06:00 06:00 07:51 WBC 23.0 H RBC 2.54 L Hgb 7.5 L Hct 23.0 L MCV MCHC RDW 20.7 H Plt Count 25 L Seg Neuts % (Manual) 91.0 H Lymphocytes % (Manual) 2.0 L Nucleated RBC % 1.0 H Seg Neutrophils # Man 20.9 H Lymphocytes # (Manual) 0.5 L Haptoglobin PT INR Fibrinogen Lupus Anticoagulant LA PTT Baseline POC ABG pH POC ABG pCO2 POC ABG pO2 Sodium Potassium Chloride 88.7 L Carbon Dioxide 21 L BUN 70 H Creatinine 3.9 H Glucose 189 H POC Glucose 145 H Lactic Acid Uric Acid Calcium 5.6 L* Phosphorus 6.30 H Iron TIBC Ferritin Total Bilirubin Direct Bilirubin Lactate Dehydrogenase C-Reactive Protein Serum Total Protein Albumin Niqls-1-Lqrmaqwcm Abnorm Protein Band 1 PEP Interpretation Crossmatch 10/19/16 10/19/16 10/19/16 09:14 10:01 12:14 WBC RBC Hgb Hct MCV MCHC RDW Plt Count Seg Neuts % (Manual) Lymphocytes % (Manual) Nucleated RBC % Seg Neutrophils # Man Lymphocytes # (Manual) Haptoglobin PT INR Fibrinogen Lupus Anticoagulant LA PTT Baseline POC ABG pH POC ABG pCO2 POC ABG pO2 Sodium Potassium Chloride Carbon Dioxide BUN Creatinine Glucose POC Glucose 173 H 153 H 180 H Lactic Acid Uric Acid Calcium Phosphorus Iron TIBC Ferritin Total Bilirubin Direct Bilirubin Lactate Dehydrogenase C-Reactive Protein Serum Total Protein Albumin Feves-7-Comdphogf Abnorm Protein Band 1 PEP Interpretation Crossmatch Assessment and Plan 61 YO M Hx HTN admitted 10/13 w/ sepsis w/ bacteremia, severe metabolic acidosis , RAJESH requiring emergent HD, severe pancytopenia, ? DIC vs. HUS vs. TTP on Plasmapheresis and acute respiratory failure with hypoxia s/p intubatation. There has not been cleared documented episode of cardiac arrest. On exam while sedated on propofol, eyes open to stimlation, stuporous MS poor concentration, paucity of speech, intact brainstem reflexes but not able to follow midline/peripheral commands w/ grossly intact motor-sensory exam as withdraws from pain in UE but otherwise grossly intact symmetric neurologic exam , consistent with toxic metabolic infectious derangement as the etiology for neurologic decompensation. 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 Stroke, Seizure or Meningitis. CTH 10/13 neg. B12 normal. Recommendations: 1. MRI Brain w/o Stone to assess for ELECTRICAL [employer] WORKER process. 2. Check serum TSH/Ammonia and correct as necessary 3. Cont Infectious work up/medical management for UTI, PNA, cellulitis, bacteremia, etc. 4. Avoid hyponatremia, hypo/hyper-calcemia, hypo/hyperglycemia, acidosis, hypoxia/hypoxemia, hypercarbia/hypercapnia 5. Avoid institution of any psychoactive medications (e.g. antihistamines, anticholinergics, BZD, hypnotics, opiates) as able unless low doses of low potency antipsychotic needed for behavioral issues complicating medical care 6. Thiamine/Folate/CIWA protocol accordingly for any hx obtained to suggest EtOH withdrawal 7. Cont home meds-there is no neurologic indication to change
--- NOTE | 2016-10-19 13:34 | Progress Note ---
Assessment and Plan Assessment and plan: Patient is a 61-year-old man with no significant past medical history presented to the emergency department [facility] 10/13/16, complaining of bilateral leg swelling that worsened for the last 4 days. He was found to have severe metabolic acidosis, creatinine was 14.5 with hyperkalemia, emergent Hemodialysis was set up. He was found to have severe pancytopenia and thrombocytopenia. Dr. 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 He was on bipap and was intubated 10/16/16, details are not readily available on why she needed to be intubated, no nursing note for 10/16/16. -Acute encephalopathy, not sedated, will consult Neurology. -AFIB WITH RVR: Cardiology is following -beta hemolitic strep BACTERIMIA: JONATHAN pending -Acute Respiratory failure with hypoxia, intubated: continue mv -Pancytopenia [leukopenia, severe anemia, Woresening thrombocytopenia] POSSIBLE LYMPHOMA, ?DIC: heme/onc is following, on PLASMAPHERSIS, s/p PRBC transfusion -ARF/End-stage renal disease -secondary coagulopathy -Lactic acidosis -Probable TTP, HUS, Amyloidosis -persistent hypoglycemia: on D10 -Acute systolic congestive heart failure EF around 30% -SEVERE SEPSIS, poa History Interval history: Patient seen and examined. Follow up on respiratory failure, patient still intubated. Overnight uneventful. No cp, sob, n/v or severe headaches. Imaging, old records, testing, labs, nursing notes reviewed. Hospitalist Physical - Physical exam Narrative exam: GEN: Critically ill intubated but not sedated HEENT: Eyes are floating, ET tube in place CVS: irregular, NORMAL S1S2 LUNGS/CHEST: NORMAL CHEST EXPANSION B, GOOD AIR ENTRY B ABD: SOFT, POSITIVE BOWEL SOUNDS, NONDISTENDED, NO REBOUND OR GUARDING NEURO: CN 2-12 GROSSLY INTACT, he doesn't follow commands PSY: Unresponsive - Constitutional Vitals: Temp Pulse Resp BP Pulse Ox 100.6 F H 70 18 139/88 100 10/19/16 08:00 10/19/16 12:00 10/19/16 12:00 10/19/16 12:00 10/19/16 12:00 General appearance: Present: well-nourished Results - Labs CBC & Chem 7: 10/19/16 06:00 10/19/16 06:00 Labs: Laboratory Last Values WBC 23.0 K/mm3 (4.5-11.0) H 10/19/16 06:00 RBC 2.54 M/mm3 (3.65-5.03) L 10/19/16 06:00 Hgb 7.5 gm/dl (11.8-15.2) L 10/19/16 06:00 Hct 23.0 % (35.5-45.6) L 10/19/16 06:00 MCV 91 fl (84-94) 10/19/16 06:00 MCH 30 pg (28-32) 10/19/16 06:00 MCHC 33 % (32-34) 10/19/16 06:00 RDW 20.7 % (13.2-15.2) H 10/19/16 06:00 Plt Count 25 K/mm3 (140-440) L 10/19/16 06:00 Lymph % (Auto) Criminal Researcher 10/14/16 04:34 Piute % (Auto) Criminal Researcher 10/14/16 04:34 Eos % (Auto) Criminal Researcher 10/14/16 04:34 Baso % (Auto) Criminal Researcher 10/14/16 04:34 Lymph # Criminal Researcher 10/14/16 04:34 Piute # Criminal Researcher 10/14/16 04:34 Eos # Criminal Researcher 10/14/16 04:34 Baso # Criminal Researcher 10/14/16 04:34 Add Manual Diff Complete 10/19/16 06:00 Total Counted 100 10/19/16 06:00 Seg Neutrophils % Criminal Researcher 10/19/16 06:00 Seg Neuts % (Manual) 91.0 % (40.0-70.0) H 10/19/16 06:00 Band Neutrophils % 7.0 % 10/19/16 06:00 Lymphocytes % (Manual) 2.0 % (13.4-35.0) L 10/19/16 06:00 Reactive Lymphs % (Man) 0 % 10/19/16 06:00 Monocytes % (Manual) 0 % (0.0-7.3) 10/19/16 06:00 Eosinophils % (Manual) 0 % (0.0-4.3) 10/19/16 06:00 Basophils % (Manual) 0 % (0.0-1.8) 10/19/16 06:00 Metamyelocytes % 0 % 10/19/16 06:00 Myelocytes % 0 % 10/19/16 06:00 Promyelocytes % 0 % 10/19/16 06:00 Blast Cells % 0 % 10/19/16 06:00 Nucleated RBC % 1.0 % (0.0-0.9) H 10/19/16 06:00 Seg Neutrophils # Criminal Researcher 10/14/16 04:34 Seg Neutrophils # Man 20.9 K/mm3 (1.8-7.7) H 10/19/16 06:00 Band Neutrophils # 1.6 K/mm3 10/19/16 06:00 Lymphocytes # (Manual) 0.5 K/mm3 (1.2-5.4) L 10/19/16 06:00 Abs React Lymphs (Man) 0.0 K/mm3 10/19/16 06:00 Monocytes # (Manual) 0.0 K/mm3 (0.0-0.8) 10/19/16 06:00 Eosinophils # (Manual) 0.0 K/mm3 (0.0-0.4) 10/19/16 06:00 Basophils # (Manual) 0.0 K/mm3 (0.0-0.1) 10/19/16 06:00 Metamyelocytes # 0.0 K/mm3 10/19/16 06:00 Myelocytes # 0.0 K/mm3 10/19/16 06:00 Promyelocytes # 0.0 K/mm3 10/19/16 06:00 Blast Cells # 0.0 K/mm3 10/19/16 06:00 WBC Morphology Not Reportable 10/19/16 06:00 Hypersegmented Neuts Not Reportable 10/19/16 06:00 Hyposegmented Neuts Not Reportable 10/19/16 06:00 Hypogranular Neuts Not Reportable 10/19/16 06:00 Smudge Cells Not Reportable 10/19/16 06:00 Toxic Granulation Few 10/19/16 06:00 Toxic Vacuolation Not Reportable 10/19/16 06:00 Dohle Bodies Not Reportable 10/19/16 06:00 Pelger-Huet Anomaly Not Reportable 10/19/16 06:00 Madhu Rods Not Reportable 10/19/16 06:00 Platelet Estimate Consistent w auto 10/19/16 06:00 Clumped Platelets Not Reportable 10/19/16 06:00 Plt Clumps, EDTA Not Reportable 10/19/16 06:00 Large Platelets Few 10/19/16 06:00 Giant Platelets Not Reportable 10/19/16 06:00 Platelet Satelliting Not Reportable 10/19/16 06:00 Plt Morphology Comment Not Reportable 10/19/16 06:00 RBC Morphology Not Reportable 10/19/16 06:00 Dimorphic RBCs Not Reportable 10/19/16 06:00 Polychromasia Not Reportable 10/19/16 06:00 Hypochromasia 1+ 10/19/16 06:00 Poikilocytosis Not Reportable 10/19/16 06:00 Anisocytosis 1+ 10/19/16 06:00 Microcytosis Not Reportable 10/19/16 06:00 Macrocytosis Not Reportable 10/19/16 06:00 Spherocytes Not Reportable 10/19/16 06:00 Pappenheimer Bodies Not Reportable 10/19/16 06:00 Sickle Cells Not Reportable 10/19/16 06:00 Target Cells Not Reportable 10/19/16 06:00 Tear Drop Cells Not Reportable 10/19/16 06:00 Ovalocytes Not Reportable 10/19/16 06:00 Helmet Cells Not Reportable 10/19/16 06:00 Goodman-Hardwick Bodies Not Reportable 10/19/16 06:00 Argyle Rings Not Reportable 10/19/16 06:00 Alburtis Cells Not Reportable 10/19/16 06:00 Bite Cells Not Reportable 10/19/16 06:00 Crenated Cell Not Reportable 10/19/16 06:00 Elliptocytes Not Reportable 10/19/16 06:00 Acanthocytes (Spur) Not Reportable 10/19/16 06:00 Rouleaux Not Reportable 10/19/16 06:00 Hemoglobin C Crystals Not Reportable 10/19/16 06:00 Schistocytes Not Reportable 10/19/16 06:00 Malaria parasites Not Reportable 10/19/16 06:00 ESR 77 mm/Hr (0-20) 10/14/16 04:34 Pal Bodies Not Reportable 10/19/16 06:00 Haptoglobin <15 mg/dL (43-212) L 10/15/16 12:00 Hem Pathologist Commnt No 10/19/16 06:00 PT 28.9 Sec. (12.2-14.9) H 10/14/16 21:25 INR 2.71 (0.87-1.13) H 10/14/16 21:25 Fibrinogen 557 mg/dl (211-480) H 10/14/16 09:58 Lupus Anticoagulant see below H 10/14/16 03:00 LA PTT Baseline 55 sec (<=40) H 10/14/16 03:00 dRVVT Confirm Interp Negative (Negative) 10/14/16 03:00 POC ABG pH 7.581 (7.35-7.45) H 10/19/16 05:14 POC ABG pCO2 22.9 (35-45) L 10/19/16 05:14 POC ABG pO2 58 (80-105) L 10/19/16 05:14 POC ABG HCO3 21.5 10/19/16 05:14 POC ABG Total CO2 22 10/19/16 05:14 POC ABG O2 Sat 94 10/19/16 05:14 POC ABG Base Excess 0 10/19/16 05:14 FiO2 25 % 10/19/16 05:14 Sodium 137 mmol/L (137-145) 10/19/16 06:00 Potassium 3.8 mmol/L (3.6-5.0) 10/19/16 06:00 Chloride 88.7 mmol/L (98-107) L 10/19/16 06:00 Carbon Dioxide 21 mmol/L (22-30) L 10/19/16 06:00 Anion Gap 31 mmol/L 10/19/16 06:00 BUN 70 mg/dL (9-20) H 10/19/16 06:00 Creatinine 3.9 mg/dL (0.8-1.5) H 10/19/16 06:00 Estimated GFR 16 ml/min 10/19/16 06:00 BUN/Creatinine Ratio 17.94 % 10/19/16 06:00 Glucose 189 mg/dL (75-100) H 10/19/16 06:00 POC Glucose 180 (70-105) H 10/19/16 12:14 Lactic Acid 14.30 mmol/L (0.7-2.0) H* 10/18/16 09:15 Uric Acid 8.0 mg/dL (3.5-7.6) H 10/14/16 03:00 Calcium 5.6 mg/dL (8.4-10.2) L* 10/19/16 06:00 Phosphorus 6.30 mg/dL (2.5-4.5) H 10/19/16 06:00 Iron 146 ug/dL (49-181) 10/15/16 05:35 TIBC 166 mcg/dL (250-450) L 10/15/16 05:35 Ferritin 9562.0 ng/mL (13.0-400.0) H 10/15/16 05:35 Total Bilirubin 1.30 mg/dL (0.1-1.2) H 10/14/16 09:58 Direct Bilirubin 1.1 mg/dL (0-0.2) H 10/14/16 09:58 Indirect Bilirubin 0.2 mg/dL 10/14/16 09:58 AST 17 units/L (5-40) 10/13/16 10:14 ALT 24 units/L (7-56) 10/13/16 10:14 Alkaline Phosphatase 76 units/L (35-129) 10/13/16 10:14 Lactate Dehydrogenase 3871 units/L (91-180) H 10/15/16 05:35 Troponin T 0.079 ng/mL (0.00-0.029) H 10/13/16 10:14 C-Reactive Protein 40.40 mg/dL (0.00-1.30) H 10/14/16 12:52 NT-Pro-B Natriuret Pep > 47555 pg/mL (0-900) H 10/13/16 10:14 Serum Total Protein 5.6 g/dL (6.1-8.1) L 10/13/16 14:50 Total Protein 6.4 g/dL (6.3-8.2) 10/13/16 10:14 Albumin 2.2 g/dL (3.8-4.8) L 10/13/16 14:50 Albumin/Globulin Ratio 0.6 % 10/13/16 10:14 Tyblj-7-Gotngqago 0.5 g/dL (0.2-0.3) H 10/13/16 14:50 Gioua-0-Ooadolexz 0.6 g/dL (0.5-0.9) 10/13/16 14:50 Beta Globulins 0.3 g/dL (0.2-0.5) 10/13/16 14:50 Gamma Globulins 1.7 g/dL (0.8-1.7) 10/13/16 14:50 Abnorm Protein Band 1 1.4 g/dL H 10/13/16 14:50 PEP Interpretation see below H 10/13/16 14:50 Triglycerides 119 mg/dL (2-149) 10/13/16 10:14 Cholesterol 71 mg/dL (50-199) 10/13/16 10:14 LDL Cholesterol Direct 41 mg/dL (50-130) L 10/13/16 10:14 HDL Cholesterol 7 mg/dL (40-59) L 10/13/16 10:14 Cholesterol/HDL Ratio 10.14 % 10/13/16 10:14 Lipase 21 units/L (13-60) 10/15/16 05:35 Vitamin B12 893.9 pg/mL (211-911) 10/14/16 03:00 Random Vancomycin 13.1 ug/mL (0-40.0) 10/19/16 05:00 XU Screen Negative (Negative) 10/13/16 14:50 Proteinase 3 (PR3) Ab <1.0 AI (<1.0) 10/13/16 14:50 Myeloperoxidase Ab <1.0 AI (<1.0) 10/13/16 14:50 Glomerular Base Mem IgG <1.0 AI (<1.0) 10/13/16 14:50 Complement C3 101 mg/dL (90-180) 10/13/16 14:50 Complement C4 16 mg/dL (16-47) 10/13/16 14:50 Hep Bs Antigen Non-reactive (Negative) 10/13/16 14:50 Hepatitis C Antibody Non-reactive (NonReactive) 10/13/16 14:50 HIV 1&2 Antibody Rapid Non react (Non React) 10/13/16 14:50 HIV P24 Antigen Non react (Non React) 10/13/16 14:50 Schistocytes Smear None seen 10/15/16 12:00 Flow Intrp 16+ Markers Scanned into med rec 10/14/16 11:30 Flow Cytometry Interp Scanned into [facility] rec 10/14/16 11:30 Blood Type O POSITIVE 10/17/16 07:59 Antibody Screen TNR 10/17/16 07:59 MADIHA Antibody Screen Negative 10/17/16 07:59 Direct Antiglob Test Negative 10/14/16 03:00 ELAINE, Poly Interpret Negative 10/14/16 03:00 Crossmatch See Detail 10/17/16 07:59
[2016-10-19] MEDS ORDERED: VANCOMYCIN 1,250 MG in NACL 0.9% 250ML 250 ML IV ONE (14:00)
--- NOTE | 2016-10-19 14:31 | Progress Note ---
Assessment and Plan - Patient Problems (1) Renal failure Current Visit: Yes Status: Acute Qualifiers: Renal failure chronicity: acute Acute renal failure type: unspecified Chronic kidney disease stage: C Qualified Code(s): N17.9 - Acute kidney failure, unspecified Plan to address problem: Received hemodialysis yesterday on 10/18/16 No acute indication for HD today Will likely hemodialyze patient tomorrow Strict I/O monitoring Avoid Nephrotoxic agents Renally dose medications Obtain daily weights (2) Pancytopenia Current Visit: Yes Status: Acute Plan to address problem: 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 Possible Amyloidosis. Received plasmaphareis today (3) Acute respiratory failure Current Visit: Yes Status: Acute Qualifiers: Respiratory failure complication: hypoxia Qualified Code(s): J96.01 - Acute respiratory failure with hypoxia Plan to address problem: Intubated as per Pulmonary (4) Metabolic acidosis Current Visit: Yes Status: Acute Plan to address problem: Hemodialysis as needed (5) Anemia Current Visit: Yes Status: Acute Qualifiers: Anemia type: unspecified type Iron deficiency anemia type: I Vitamin B12 deficiency anemia type: V Folate deficiency anemia type: F Bone marrow failure anemia type: B Hemolytic anemia type: H Other causes of anemia: O Qualified Code(s): D64.9 - Anemia, unspecified Plan to address problem: Monitor labs and transfuse as needed Hematology onboard (6) Atrial fibrillation Current Visit: Yes Status: Acute Qualifiers: Atrial fibrillation type: A Plan to address problem: On IV Amiodarone drip as per Cardiology Echo-LVEF 30-35% (7) Septic shock Current Visit: Yes Status: Acute Plan to address problem: On Levophed drip for BP support On IV Clindamycin On D5+ 1/2NS@ 75 ml/hr for Hypoglycemia Subjective Date of service: 10/19/16 Principal diagnosis: Sepsis Syndrome; MAHA; RAJESH; CHF Interval history: Patient is intubated and sedated. No family at bedside. Objective - Vital Signs Vital signs: Vital Signs - 12hr 10/19/16 10/19/16 10/19/16 02:45 03:00 03:15 Temperature Pulse Rate 70 69 69 Respiratory 25 H 25 H 25 H Rate Blood Pressure 99/66 95/64 98/65 O2 Sat by Pulse 100 100 100 Oximetry 10/19/16 10/19/16 10/19/16 03:30 03:45 04:00 Temperature 100.1 F H Pulse Rate 68 68 68 Respiratory 25 H 25 H 25 H Rate Blood Pressure 97/63 94/61 108/68 O2 Sat by Pulse 100 100 100 Oximetry 10/19/16 10/19/16 10/19/16 04:15 04:30 04:45 Temperature Pulse Rate 68 67 66 Respiratory 23 26 H 25 H Rate Blood Pressure 96/66 96/62 96/60 O2 Sat by Pulse 100 100 100 Oximetry 10/19/16 10/19/16 10/19/16 05:00 05:15 05:30 Temperature Pulse Rate 66 65 66 Respiratory 25 H 24 21 Rate Blood Pressure 91/61 91/62 93/58 O2 Sat by Pulse 100 100 67 L Oximetry 10/19/16 10/19/16 10/19/16 05:45 06:00 06:15 Temperature Pulse Rate 65 65 67 Respiratory 19 20 13 Rate Blood Pressure 81/49 80/49 143/85 O2 Sat by Pulse 96 99 93 Oximetry 10/19/16 10/19/16 10/19/16 06:30 06:45 07:00 Temperature Pulse Rate 66 67 68 Respiratory 21 22 22 Rate Blood Pressure 129/81 134/81 138/87 O2 Sat by Pulse 97 100 100 Oximetry 10/19/16 10/19/16 10/19/16 07:15 07:30 07:45 Temperature Pulse Rate 68 67 68 Respiratory 15 18 20 Rate Blood Pressure 138/89 132/81 125/83 O2 Sat by Pulse 100 100 100 Oximetry 10/19/16 10/19/16 10/19/16 08:00 08:15 08:28 Temperature 100.6 F H Pulse Rate 67 67 71 Respiratory 21 20 Rate Blood Pressure 128/80 135/80 135/80 O2 Sat by Pulse 97 100 100 Oximetry 10/19/16 10/19/16 10/19/16 08:30 08:45 09:00 Temperature Pulse Rate 71 70 69 Respiratory 23 24 24 Rate Blood Pressure 148/89 110/69 95/56 O2 Sat by Pulse 100 100 100 Oximetry 10/19/16 10/19/16 10/19/16 09:15 09:30 09:45 Temperature Pulse Rate 71 71 70 Respiratory 19 21 27 H Rate Blood Pressure 105/69 94/67 100/67 O2 Sat by Pulse 99 100 100 Oximetry 10/19/16 10/19/16 10/19/16 10:00 10:15 10:31 Temperature Pulse Rate 70 70 69 Respiratory 26 H 25 H 19 Rate Blood Pressure 90/61 103/71 120/84 O2 Sat by Pulse 100 100 100 Oximetry 10/19/16 10/19/16 10/19/16 10:45 11:00 11:15 Temperature Pulse Rate 68 70 71 Respiratory 23 23 18 Rate Blood Pressure 126/80 126/80 144/88 O2 Sat by Pulse 100 100 100 Oximetry 10/19/16 10/19/16 10/19/16 11:22 11:30 11:45 Temperature Pulse Rate 70 69 69 Respiratory 22 22 Rate Blood Pressure 144/88 125/79 130/81 O2 Sat by Pulse 100 100 100 Oximetry 10/19/16 12:00 Temperature 98.7 F Pulse Rate 70 Respiratory 18 Rate Blood Pressure 139/88 O2 Sat by Pulse 100 Oximetry - General Appearance General appearance: sedated on ventilator, intubated EENT: ATNC Neck: no JVD, supple Respiratory: Present: Decreased Breath Sounds, Other (Intubated) Cardiology: regular, S1S2 Gastrointestinal: normoactive bowel sounds, other (Has dobhoff tube feeding) Integumentary: warm and dry Neurologic: other (Sedated on Diprivan) Musculoskeletal: other (Has 2+ edema to bilateral lower extremities) - Lab 10/19/16 06:00 10/19/16 06:00 Most recent lab results Calcium 5.6 mg/dL (8.4-10.2) L* 10/19/16 06:00 Phosphorus 6.30 mg/dL (2.5-4.5) H 10/19/16 06:00
[2016-10-19] MEDS: PEPCID IV SCH (21:21)
[2016-10-20] MEDS: DIPRIVAN 10 MG/ML 1,000 MG/100 ML BOTTLE IV SCH (01:24)
[2016-10-20] MEDS: CLEOCIN 900 MG/50 mL 900 MG/50 ML BAG IV SCH ×3 (04:41→21:01)
[2016-10-20] MEDS: DECADRON IV SCH (04:42)
[2016-10-20 05:25] LABS: ISTAT Base Excess 5; ISTAT HCO3 28.9; ISTAT PCO2 40.4 (35-45); ISTAT PH 7.463 (7.35-7.45); ISTAT PO2 157 (80-105); ISTAT SO2 99; ISTAT TCO2 30
[2016-10-20 05:30] LABS: Hematocrit 22.9 % (35.5-45.6); Hemoglobin 7.4 gm/dl (11.8-15.2); Mean Corpuscular HGB Conc 32 % (32-34); Mean Corpuscular Hemoglobin 29 pg (28-32); Mean Corpuscular Volume 91 fl (84-94); Red Blood Count 2.52 M/mm3 (3.65-5.03); Red Cell Distribution Width 19.9 % (13.2-15.2)
[2016-10-20 05:37] LABS: BUN/Creatinine Ratio 21.62
[2016-10-20 05:38] LABS: Chloride 88.8 mmol/L (98-107); Potassium 3.7 mmol/L (3.6-5.0)
[2016-10-20 05:41] LABS: Platelet Count 23 K/mm3 (140-440); White Blood Count 24.8 K/mm3 (4.5-11.0)
[2016-10-20 05:48] LABS: Calcium 5.2 mg/dL (8.4-10.2)
[2016-10-20 06:53] LABS: Anisocytosis 2+; Basophils % (Manual) 0 % (0.0-1.8); Blastocytes % (Manual) 0 %; Elliptocytes Rare; Eosinophils % (Manual) 0 % (0.0-4.3); Hypochromasia 1+; Macrocytosis Rare; Toxic Granulation Few
[2016-10-20 06:54] LABS: Diff Status Complete; Large Platelets Few; Platelet Estimate Appears Decreased
--- NOTE | 2016-10-20 08:03 | XRay Report ---
AP CHEST :10/20/16 CLINICAL: Intubated.Follow up respiratory failure. COMPARISON:10/19/16 FINDINGS: Tubes and lines are satisfactory and unchanged. Stable cardiomegaly. Mild central vascular congestion. The lungs are normally expanded and clear. No pneumothorax. IMPRESSION: No change.Cardiomegaly and pulmonary venous hypertension. No CHF or pneumonia.
[2016-10-20] MEDS ORDERED: NACL 0.9% 500 ML 500 ML IV ONE (09:21)
[2016-10-20] MEDS: PEPCID PO SCH (10:23)
[2016-10-20] MEDS: CORDARONE PO SCH ×2 (10:24→22:00)
--- NOTE | 2016-10-20 11:10 | Progress Note ---
Assessment and Plan - Patient Problems (1) Acute respiratory failure Current Visit: Yes Status: Acute Qualifiers: Respiratory failure complication: hypoxia Qualified Code(s): J96.01 - Acute respiratory failure with hypoxia Plan to address problem: Currently on AC-VC 25/500/PEEP 5/28% VAP bundle addressed HOB>40, aspiration precautions CXR prn Start weaning supplemental oxygen Daily SATs/SBTs Agitation management- intermittent medication Nutrition - resume trophic feeds at 20cc/hour, continuous. Will re-evaluate in am and advance to goal of 35cc/hour (2) Septic shock Current Visit: Yes Status: Acute Plan to address problem: Secondary to Streptococcal bacteremia/pneumonia Transthoracic echo was negative for vegetations Continue vasopressor support- keep MAP>65 Antibiotics as per ID service (3) TTP (thrombotic thrombocytopenic purpura) Current Visit: Yes Status: Acute Plan to address problem: As per hematology. Avoid platelet transfusions Plasmapheresis Worsening thrombocytopenia. If platelets decrease below 15, monitor closely for spontaneous intracranial hemorrhage Avoid invasive procedures that may provoke mucosal bleeding (4) RAJESH (acute kidney injury) Current Visit: Yes Status: Acute Plan to address problem: On supportive HD Renal managing (5) Anemia Current Visit: Yes Status: Acute Qualifiers: Anemia type: unspecified type Iron deficiency anemia type: I Vitamin B12 deficiency anemia type: V Folate deficiency anemia type: F Bone marrow failure anemia type: B Hemolytic anemia type: H Other causes of anemia: O Qualified Code(s): D64.9 - Anemia, unspecified Plan to address problem: Monitor, supportive transfusions as needed. s/p 1 unit PRBC (6) Acute encephalopathy Current Visit: Yes Status: Acute Plan to address problem: Worse today. Will discontinue propofol and then re-assess neurological status. If he does not improve and his thrombocytopenia continues to worsen, get non contrast CT head to r/o spontaneous intracranial hemorrhage. Subjective Date of service: 10/20/16 Principal diagnosis: Sepsis Syndrome; MAHA; RAJESH; CHF Interval history: Patient admitted with * Acute metabolic encephalopathy * AFIB WITH RVR * beta hemolitic strep BACTERIMIA * Acute Respiratory failure with hypoxia * Pancytopenia [leukopenia, severe anemia, Worsening thrombocytopenia] * ?DIC * End-stage renal disease * secondary coagulopathy * Lactic acidosis * Probable TTP, HUS * persistent hypoglycemia * Acute systolic congestive heart failure EF around 30% * SEVERE SEPSIS * Today 10/20/2016 Critically ill, on mechanical ventilatory support- required orotracheal intubation 10/16/2016 On going need for vasopressor support- no patient ventilator dys-synchrony On amiodarone infusion for atrial fibrillation with RVR Receiving plasmaphersis- for thrombocytopenia that is worsening On antibiotics for Strep PNA Seen and examined, vitals, labs, records reviewed. Less responsive today Tolerating tube feedings Discussed on interdisciplinary rounds Objective - Exam Narrative Exam: intubated, minimally responsive, FiO2 28% Vital Signs - 12hr 10/19/16 10/19/16 10/19/16 23:15 23:23 23:30 Temperature Pulse Rate 69 68 68 Pulse Rate [ From Monitor] Respiratory 28 H 27 H Rate Blood Pressure 125/83 122/79 128/83 O2 Sat by Pulse 100 100 100 Oximetry O2 Sat by Pulse Oximetry [ Anterior Bilateral Throughout] 10/19/16 10/20/16 10/20/16 23:45 00:00 00:15 Temperature 100.4 F H Pulse Rate 69 68 68 Pulse Rate [ From Monitor] Respiratory 23 22 21 Rate Blood Pressure 131/86 130/84 124/83 O2 Sat by Pulse 100 100 100 Oximetry O2 Sat by Pulse Oximetry [ Anterior Bilateral Throughout] 10/20/16 10/20/16 10/20/16 00:30 00:45 01:00 Temperature Pulse Rate 68 68 67 Pulse Rate [ From Monitor] Respiratory 20 21 24 Rate Blood Pressure 126/82 118/77 113/76 O2 Sat by Pulse 100 100 100 Oximetry O2 Sat by Pulse Oximetry [ Anterior Bilateral Throughout] 10/20/16 10/20/16 10/20/16 01:15 01:30 01:45 Temperature Pulse Rate 67 68 67 Pulse Rate [ From Monitor] Respiratory 16 27 H 20 Rate Blood Pressure 112/75 118/75 116/75 O2 Sat by Pulse 100 100 100 Oximetry O2 Sat by Pulse Oximetry [ Anterior Bilateral Throughout] 10/20/16 10/20/16 10/20/16 02:00 02:15 02:30 Temperature Pulse Rate 67 68 67 Pulse Rate [ From Monitor] Respiratory 18 15 28 H Rate Blood Pressure 116/75 116/74 113/79 O2 Sat by Pulse 100 84 96 Oximetry O2 Sat by Pulse Oximetry [ Anterior Bilateral Throughout] 10/20/16 10/20/16 10/20/16 02:45 03:00 03:15 Temperature Pulse Rate 67 67 67 Pulse Rate [ From Monitor] Respiratory 26 H 23 25 H Rate Blood Pressure 113/76 119/77 116/79 O2 Sat by Pulse 100 100 100 Oximetry O2 Sat by Pulse Oximetry [ Anterior Bilateral Throughout] 10/20/16 10/20/16 10/20/16 03:30 03:45 04:00 Temperature 100.3 F H Pulse Rate 67 67 66 Pulse Rate [ From Monitor] Respiratory 23 19 Rate Blood Pressure 118/76 124/78 107/71 O2 Sat by Pulse 100 100 98 Oximetry O2 Sat by Pulse Oximetry [ Anterior Bilateral Throughout] 10/20/16 10/20/16 10/20/16 04:01 04:15 04:30 Temperature Pulse Rate 67 67 66 Pulse Rate [ From Monitor] Respiratory 21 18 20 Rate Blood Pressure 118/75 114/74 109/73 O2 Sat by Pulse 100 100 100 Oximetry O2 Sat by Pulse Oximetry [ Anterior Bilateral Throughout] 10/20/16 10/20/16 10/20/16 04:45 05:00 05:15 Temperature Pulse Rate 66 72 66 Pulse Rate [ From Monitor] Respiratory 22 22 21 Rate Blood Pressure 107/71 114/76 106/70 O2 Sat by Pulse 100 100 100 Oximetry O2 Sat by Pulse Oximetry [ Anterior Bilateral Throughout] 10/20/16 10/20/16 10/20/16 05:30 05:45 06:00 Temperature Pulse Rate 66 66 66 Pulse Rate [ From Monitor] Respiratory 21 22 21 Rate Blood Pressure 99/67 103/69 106/68 O2 Sat by Pulse 100 100 100 Oximetry O2 Sat by Pulse Oximetry [ Anterior Bilateral Throughout] 10/20/16 10/20/16 10/20/16 06:15 06:30 06:45 Temperature Pulse Rate 67 67 67 Pulse Rate [ From Monitor] Respiratory 22 23 26 H Rate Blood Pressure 93/62 100/67 105/66 O2 Sat by Pulse 95 100 100 Oximetry O2 Sat by Pulse Oximetry [ Anterior Bilateral Throughout] 10/20/16 10/20/16 10/20/16 07:00 07:15 07:30 Temperature Pulse Rate 66 66 66 Pulse Rate [ From Monitor] Respiratory 22 22 23 Rate Blood Pressure 101/65 100/65 101/65 O2 Sat by Pulse 98 93 100 Oximetry O2 Sat by Pulse Oximetry [ Anterior Bilateral Throughout] 10/20/16 10/20/16 10/20/16 07:45 07:55 08:00 Temperature 99.6 F Pulse Rate 66 65 Pulse Rate [ 65 From Monitor] Respiratory 25 H 15 Rate Blood Pressure 107/68 105/70 O2 Sat by Pulse 99 100 Oximetry O2 Sat by Pulse Oximetry [ Anterior Bilateral Throughout] 10/20/16 10/20/16 10/20/16 08:15 08:30 09:40 Temperature 99.6 F Pulse Rate 67 67 73 Pulse Rate [ From Monitor] Respiratory 29 H 22 22 Rate Blood Pressure 113/75 112/76 110/74 O2 Sat by Pulse 100 100 Oximetry O2 Sat by Pulse 100 Oximetry [ Anterior Bilateral Throughout] 10/20/16 10/20/16 10/20/16 09:55 10:00 10:15 Temperature Pulse Rate 73 67 66 Pulse Rate [ From Monitor] Respiratory Rate Blood Pressure 110/74 120/75 128/80 O2 Sat by Pulse 99 Oximetry O2 Sat by Pulse Oximetry [ Anterior Bilateral Throughout] 10/20/16 10/20/16 10/20/16 10:30 10:45 11:00 Temperature Pulse Rate 67 66 69 Pulse Rate [ From Monitor] Respiratory Rate Blood Pressure 137/82 119/76 128/84 O2 Sat by Pulse Oximetry O2 Sat by Pulse Oximetry [ Anterior Bilateral Throughout] Constitutional: no acute distress, lethargic Eyes: non-icteric ENT: oropharynx dry Neck: supple, no lymphadenopathy Effort: normal, mildly labored Ascultation: Bilateral: clear, diminished breath sounds Cardiovascular: irregular rhythm Gastrointestinal: normoactive bowel sounds, soft, non-distended Integumentary: erythema (ecchymosis/purpura) Extremities: no cyanosis, pulses normal, no ischemia or petechiae, edema Neurologic: non-focal exam (grossly), pupils equal and round, unable to assess Psychiatric: other (unable to assess) CBC and BMP: 10/20/16 06:00 10/20/16 05:00 ABG, PT/INR, D-dimer: ABG POC ABG pH 7.463 (7.35-7.45) H 10/20/16 05:16 POC ABG pCO2 40.4 (35-45) 10/20/16 05:16 POC ABG pO2 157 (80-105) H 10/20/16 05:16 POC ABG HCO3 28.9 10/20/16 05:16 POC ABG Total CO2 30 10/20/16 05:16 POC ABG O2 Sat 99 10/20/16 05:16 PT/INR, D-dimer PT 28.9 Sec. (12.2-14.9) H 10/14/16 21:25 INR 2.71 (0.87-1.13) H 10/14/16 21:25 Abnormal lab findings: Abnormal Labs 10/13/16 10/13/16 10/13/16 14:50 21:40 22:05 WBC RBC Hgb Hct MCV MCHC RDW Plt Count Seg Neuts % (Manual) Lymphocytes % (Manual) Nucleated RBC % Seg Neutrophils # Man Lymphocytes # (Manual) Haptoglobin PT INR Fibrinogen Lupus Anticoagulant LA PTT Baseline POC ABG pH POC ABG pCO2 POC ABG pO2 Sodium Potassium Chloride Carbon Dioxide BUN Creatinine Glucose POC Glucose 52 L 43 L Lactic Acid Uric Acid Calcium Phosphorus Iron TIBC Ferritin Total Bilirubin Direct Bilirubin Lactate Dehydrogenase C-Reactive Protein Serum Total Protein 5.6 L Albumin 2.2 L Cvlyq-2-Hxttehumg 0.5 H Abnorm Protein Band 1 1.4 H PEP Interpretation see below H Crossmatch 10/13/16 10/14/16 10/14/16 23:18 03:00 03:00 WBC RBC Hgb Hct MCV MCHC RDW Plt Count Seg Neuts % (Manual) Lymphocytes % (Manual) Nucleated RBC % Seg Neutrophils # Man Lymphocytes # (Manual) Haptoglobin PT INR Fibrinogen Lupus Anticoagulant see below H LA PTT Baseline 55 H POC ABG pH POC ABG pCO2 POC ABG pO2 Sodium Potassium Chloride Carbon Dioxide BUN Creatinine Glucose POC Glucose 113 H Lactic Acid Uric Acid Calcium Phosphorus Iron TIBC Ferritin Total Bilirubin Direct Bilirubin Lactate Dehydrogenase 406 H C-Reactive Protein Serum Total Protein Albumin Eazzv-7-Uuvupahxi Abnorm Protein Band 1 PEP Interpretation Crossmatch 10/14/16 10/14/16 10/14/16 03:00 03:00 04:34 WBC 1.3 L* RBC 2.33 L Hgb 7.3 L Hct 21.7 L MCV MCHC RDW 19.8 H Plt Count 99 L Seg Neuts % (Manual) Lymphocytes % (Manual) 3.0 L Nucleated RBC % Seg Neutrophils # Man 0.9 L Lymphocytes # (Manual) 0.0 L Haptoglobin PT INR Fibrinogen Lupus Anticoagulant LA PTT Baseline POC ABG pH POC ABG pCO2 POC ABG pO2 Sodium Potassium Chloride Carbon Dioxide 18 L BUN 73 H Creatinine 9.8 H Glucose 59 L POC Glucose Lactic Acid Uric Acid 8.0 H Calcium 8.2 L Phosphorus 6.60 H Iron 13 L TIBC 160 L Ferritin Total Bilirubin Direct Bilirubin Lactate Dehydrogenase C-Reactive Protein Serum Total Protein Albumin Kygfq-6-Oyfxulxyj Abnorm Protein Band 1 PEP Interpretation Crossmatch 10/14/16 10/14/16 10/14/16 05:27 06:29 07:34 WBC RBC Hgb Hct MCV MCHC RDW Plt Count Seg Neuts % (Manual) Lymphocytes % (Manual) Nucleated RBC % Seg Neutrophils # Man Lymphocytes # (Manual) Haptoglobin PT INR Fibrinogen Lupus Anticoagulant LA PTT Baseline POC ABG pH POC ABG pCO2 POC ABG pO2 Sodium Potassium Chloride Carbon Dioxide BUN Creatinine Glucose POC Glucose < 40 L 63 L < 40 L Lactic Acid Uric Acid Calcium Phosphorus Iron TIBC Ferritin Total Bilirubin Direct Bilirubin Lactate Dehydrogenase C-Reactive Protein Serum Total Protein Albumin Ajzga-7-Edbubhxoz Abnorm Protein Band 1 PEP Interpretation Crossmatch 10/14/16 10/14/16 10/14/16 09:58 09:58 09:58 WBC RBC Hgb Hct MCV MCHC RDW Plt Count Seg Neuts % (Manual) Lymphocytes % (Manual) Nucleated RBC % Seg Neutrophils # Man Lymphocytes # (Manual) Haptoglobin 218 H PT INR Fibrinogen 557 H Lupus Anticoagulant LA PTT Baseline POC ABG pH POC ABG pCO2 POC ABG pO2 Sodium Potassium Chloride Carbon Dioxide BUN Creatinine Glucose POC Glucose Lactic Acid Uric Acid Calcium Phosphorus Iron TIBC Ferritin Total Bilirubin 1.30 H Direct Bilirubin 1.1 H Lactate Dehydrogenase C-Reactive Protein Serum Total Protein Albumin Jjewn-7-Ekqqltahn Abnorm Protein Band 1 PEP Interpretation Crossmatch 10/14/16 10/14/16 10/14/16 10:57 11:15 12:52 WBC RBC Hgb Hct MCV MCHC RDW Plt Count Seg Neuts % (Manual) Lymphocytes % (Manual) Nucleated RBC % Seg Neutrophils # Man Lymphocytes # (Manual) Haptoglobin PT INR Fibrinogen Lupus Anticoagulant LA PTT Baseline POC ABG pH POC ABG pCO2 POC ABG pO2 Sodium Potassium Chloride Carbon Dioxide BUN Creatinine Glucose POC Glucose < 40 L < 40 L Lactic Acid 9.60 H* Uric Acid Calcium Phosphorus Iron TIBC Ferritin Total Bilirubin Direct Bilirubin Lactate Dehydrogenase C-Reactive Protein Serum Total Protein Albumin Fhvrz-6-Fjvwrjvis Abnorm Protein Band 1 PEP Interpretation Crossmatch 10/14/16 10/14/16 10/14/16 12:52 13:17 14:12 WBC RBC Hgb Hct MCV MCHC RDW Plt Count Seg Neuts % (Manual) Lymphocytes % (Manual) Nucleated RBC % Seg Neutrophils # Man Lymphocytes # (Manual) Haptoglobin PT INR Fibrinogen Lupus Anticoagulant LA PTT Baseline POC ABG pH POC ABG pCO2 POC ABG pO2 Sodium Potassium Chloride Carbon Dioxide BUN Creatinine Glucose POC Glucose < 40 L < 40 L Lactic Acid Uric Acid Calcium Phosphorus Iron TIBC Ferritin Total Bilirubin Direct Bilirubin Lactate Dehydrogenase C-Reactive Protein 40.40 H Serum Total Protein Albumin Rflad-7-Danudazpi Abnorm Protein Band 1 PEP Interpretation Crossmatch 10/14/16 10/14/16 10/14/16 15:02 15:33 15:33 WBC RBC Hgb Hct MCV MCHC RDW Plt Count Seg Neuts % (Manual) Lymphocytes % (Manual) Nucleated RBC % Seg Neutrophils # Man Lymphocytes # (Manual) Haptoglobin PT INR Fibrinogen Lupus Anticoagulant LA PTT Baseline POC ABG pH POC ABG pCO2 POC ABG pO2 Sodium Potassium Chloride Carbon Dioxide BUN Creatinine Glucose 19 L* POC Glucose < 40 L Lactic Acid 11.60 H* Uric Acid Calcium Phosphorus Iron TIBC Ferritin Total Bilirubin Direct Bilirubin Lactate Dehydrogenase C-Reactive Protein Serum Total Protein Albumin Pfrfp-9-Jfcpujngz Abnorm Protein Band 1 PEP Interpretation Crossmatch 10/14/16 10/14/16 10/14/16 17:14 18:03 21:25 WBC RBC Hgb Hct MCV MCHC RDW Plt Count Seg Neuts % (Manual) Lymphocytes % (Manual) Nucleated RBC % Seg Neutrophils # Man Lymphocytes # (Manual) Haptoglobin PT 28.9 H INR 2.71 H Fibrinogen Lupus Anticoagulant LA PTT Baseline POC ABG pH POC ABG pCO2 POC ABG pO2 Sodium Potassium Chloride Carbon Dioxide BUN Creatinine Glucose POC Glucose < 40 L 57 L Lactic Acid Uric Acid Calcium Phosphorus Iron TIBC Ferritin Total Bilirubin Direct Bilirubin Lactate Dehydrogenase C-Reactive Protein Serum Total Protein Albumin Aaxhs-0-Wlpgndvtz Abnorm Protein Band 1 PEP Interpretation Crossmatch 10/15/16 10/15/16 10/15/16 05:32 05:35 05:35 WBC RBC 2.62 L Hgb 8.1 L Hct 25.8 L MCV 98 H D MCHC 31 L RDW 21.2 H Plt Count 61 L Seg Neuts % (Manual) 27.0 L Lymphocytes % (Manual) 10.0 L Nucleated RBC % 2.0 H Seg Neutrophils # Man Lymphocytes # (Manual) 0.8 L Haptoglobin PT INR Fibrinogen Lupus Anticoagulant LA PTT Baseline POC ABG pH POC ABG pCO2 POC ABG pO2 Sodium Potassium Chloride Carbon Dioxide BUN Creatinine Glucose POC Glucose < 40 L Lactic Acid Uric Acid Calcium Phosphorus Iron TIBC Ferritin Total Bilirubin Direct Bilirubin Lactate Dehydrogenase 3871 H C-Reactive Protein Serum Total Protein Albumin Rjbjb-2-Vcefdaizj Abnorm Protein Band 1 PEP Interpretation Crossmatch 10/15/16 10/15/16 10/15/16 05:35 05:35 05:35 WBC RBC Hgb Hct MCV MCHC RDW Plt Count Seg Neuts % (Manual) Lymphocytes % (Manual) Nucleated RBC % Seg Neutrophils # Man Lymphocytes # (Manual) Haptoglobin PT INR Fibrinogen Lupus Anticoagulant LA PTT Baseline POC ABG pH POC ABG pCO2 POC ABG pO2 Sodium 136 L Potassium 5.3 H D Chloride 91.4 L Carbon Dioxide 6 L* D BUN 57 H Creatinine 7.1 H Glucose 11 L* POC Glucose Lactic Acid 13.60 H* Uric Acid Calcium 7.7 L Phosphorus 10.10 H D Iron TIBC 166 L Ferritin 9562.0 H Total Bilirubin Direct Bilirubin Lactate Dehydrogenase C-Reactive Protein Serum Total Protein Albumin Mqfze-3-Vxhefltct Abnorm Protein Band 1 PEP Interpretation Crossmatch 10/15/16 10/15/16 10/15/16 05:51 06:22 06:52 WBC RBC Hgb Hct MCV MCHC RDW Plt Count Seg Neuts % (Manual) Lymphocytes % (Manual) Nucleated RBC % Seg Neutrophils # Man Lymphocytes # (Manual) Haptoglobin PT INR Fibrinogen Lupus Anticoagulant LA PTT Baseline POC ABG pH 7.189 L POC ABG pCO2 28.9 L POC ABG pO2 Sodium Potassium Chloride Carbon Dioxide BUN Creatinine Glucose POC Glucose 59 L 111 H Lactic Acid Uric Acid Calcium Phosphorus Iron TIBC Ferritin Total Bilirubin Direct Bilirubin Lactate Dehydrogenase C-Reactive Protein Serum Total Protein Albumin Nysow-5-Mlrvarugt Abnorm Protein Band 1 PEP Interpretation Crossmatch 10/15/16 10/15/16 10/15/16 08:00 09:57 11:42 WBC RBC Hgb Hct MCV MCHC RDW Plt Count Seg Neuts % (Manual) Lymphocytes % (Manual) Nucleated RBC % Seg Neutrophils # Man Lymphocytes # (Manual) Haptoglobin PT INR Fibrinogen Lupus Anticoagulant LA PTT Baseline POC ABG pH POC ABG pCO2 POC ABG pO2 Sodium Potassium Chloride Carbon Dioxide BUN Creatinine Glucose POC Glucose 63 L 143 H 203 H Lactic Acid Uric Acid Calcium Phosphorus Iron TIBC Ferritin Total Bilirubin Direct Bilirubin Lactate Dehydrogenase C-Reactive Protein Serum Total Protein Albumin Brrqo-3-Ztmodfjsz Abnorm Protein Band 1 PEP Interpretation Crossmatch 10/15/16 10/15/16 10/15/16 12:00 12:00 13:00 WBC RBC Hgb Hct MCV MCHC RDW Plt Count Seg Neuts % (Manual) Lymphocytes % (Manual) Nucleated RBC % Seg Neutrophils # Man Lymphocytes # (Manual) Haptoglobin <15 L PT INR Fibrinogen Lupus Anticoagulant LA PTT Baseline POC ABG pH POC ABG pCO2 POC ABG pO2 Sodium Potassium Chloride Carbon Dioxide BUN Creatinine Glucose POC Glucose 136 H Lactic Acid 16.30 H* Uric Acid Calcium Phosphorus Iron TIBC Ferritin Total Bilirubin Direct Bilirubin Lactate Dehydrogenase C-Reactive Protein Serum Total Protein Albumin Llfoh-1-Qpvniumjv Abnorm Protein Band 1 PEP Interpretation Crossmatch 10/15/16 10/15/16 10/15/16 14:06 15:15 16:23 WBC RBC Hgb Hct MCV MCHC RDW Plt Count Seg Neuts % (Manual) Lymphocytes % (Manual) Nucleated RBC % Seg Neutrophils # Man Lymphocytes # (Manual) Haptoglobin PT INR Fibrinogen Lupus Anticoagulant LA PTT Baseline POC ABG pH POC ABG pCO2 POC ABG pO2 Sodium Potassium Chloride Carbon Dioxide BUN Creatinine Glucose POC Glucose 132 H 64 L Lactic Acid 20.40 H* Uric Acid Calcium Phosphorus Iron TIBC Ferritin Total Bilirubin Direct Bilirubin Lactate Dehydrogenase C-Reactive Protein Serum Total Protein Albumin Ubchg-6-Lsniaxilu Abnorm Protein Band 1 PEP Interpretation Crossmatch 10/15/16 10/15/16 10/15/16 16:40 17:00 17:10 WBC RBC Hgb Hct MCV MCHC RDW Plt Count Seg Neuts % (Manual) Lymphocytes % (Manual) Nucleated RBC % Seg Neutrophils # Man Lymphocytes # (Manual) Haptoglobin PT INR Fibrinogen Lupus Anticoagulant LA PTT Baseline POC ABG pH 7.323 L POC ABG pCO2 25.8 L POC ABG pO2 135 H Sodium Potassium Chloride Carbon Dioxide BUN Creatinine Glucose POC Glucose 159 H Lactic Acid 20.20 H* Uric Acid Calcium Phosphorus Iron TIBC Ferritin Total Bilirubin Direct Bilirubin Lactate Dehydrogenase C-Reactive Protein Serum Total Protein Albumin Rrcyj-4-Lmtqfpzae Abnorm Protein Band 1 PEP Interpretation Crossmatch 10/15/16 10/15/16 10/15/16 17:46 17:53 18:45 WBC RBC Hgb Hct MCV MCHC RDW Plt Count Seg Neuts % (Manual) Lymphocytes % (Manual) Nucleated RBC % Seg Neutrophils # Man Lymphocytes # (Manual) Haptoglobin PT INR Fibrinogen Lupus Anticoagulant LA PTT Baseline POC ABG pH POC ABG pCO2 POC ABG pO2 Sodium Potassium Chloride Carbon Dioxide BUN Creatinine Glucose POC Glucose 126 H 143 H Lactic Acid 21.40 H* Uric Acid Calcium Phosphorus Iron TIBC Ferritin Total Bilirubin Direct Bilirubin Lactate Dehydrogenase C-Reactive Protein Serum Total Protein Albumin Jbnow-5-Vjpciulpi Abnorm Protein Band 1 PEP Interpretation Crossmatch 10/15/16 10/15/16 10/16/16 20:03 22:59 00:06 WBC RBC Hgb Hct MCV MCHC RDW Plt Count Seg Neuts % (Manual) Lymphocytes % (Manual) Nucleated RBC % Seg Neutrophils # Man Lymphocytes # (Manual) Haptoglobin PT INR Fibrinogen Lupus Anticoagulant LA PTT Baseline POC ABG pH POC ABG pCO2 POC ABG pO2 Sodium Potassium Chloride Carbon Dioxide BUN Creatinine Glucose POC Glucose 66 L 53 L 126 H Lactic Acid Uric Acid Calcium Phosphorus Iron TIBC Ferritin Total Bilirubin Direct Bilirubin Lactate Dehydrogenase C-Reactive Protein Serum Total Protein Albumin Affpb-4-Bsqwxyqwn Abnorm Protein Band 1 PEP Interpretation Crossmatch 10/16/16 10/16/16 10/16/16 01:03 03:55 04:00 WBC RBC Hgb Hct MCV MCHC RDW Plt Count Seg Neuts % (Manual) Lymphocytes % (Manual) Nucleated RBC % Seg Neutrophils # Man Lymphocytes # (Manual) Haptoglobin PT INR Fibrinogen Lupus Anticoagulant LA PTT Baseline POC ABG pH POC ABG pCO2 POC ABG pO2 Sodium Potassium Chloride Carbon Dioxide BUN Creatinine Glucose POC Glucose 107 H 260 H Lactic Acid 18.00 H* Uric Acid Calcium Phosphorus Iron TIBC Ferritin Total Bilirubin Direct Bilirubin Lactate Dehydrogenase C-Reactive Protein Serum Total Protein Albumin Jehgv-1-Wjqsaclpw Abnorm Protein Band 1 PEP Interpretation Crossmatch 10/16/16 10/16/16 10/16/16 04:03 07:58 08:34 WBC RBC Hgb Hct MCV MCHC RDW Plt Count Seg Neuts % (Manual) Lymphocytes % (Manual) Nucleated RBC % Seg Neutrophils # Man Lymphocytes # (Manual) Haptoglobin PT INR Fibrinogen Lupus Anticoagulant LA PTT Baseline POC ABG pH 7.527 H POC ABG pCO2 32.9 L POC ABG pO2 119 H Sodium Potassium Chloride Carbon Dioxide BUN Creatinine Glucose POC Glucose 120 H 66 L Lactic Acid Uric Acid Calcium Phosphorus Iron TIBC Ferritin Total Bilirubin Direct Bilirubin Lactate Dehydrogenase C-Reactive Protein Serum Total Protein Albumin Kvgqs-8-Fauvaumqb Abnorm Protein Band 1 PEP Interpretation Crossmatch 10/16/16 10/16/16 10/16/16 09:13 10:06 10:57 WBC RBC Hgb Hct MCV MCHC RDW Plt Count Seg Neuts % (Manual) Lymphocytes % (Manual) Nucleated RBC % Seg Neutrophils # Man Lymphocytes # (Manual) Haptoglobin PT INR Fibrinogen Lupus Anticoagulant LA PTT Baseline POC ABG pH POC ABG pCO2 POC ABG pO2 Sodium Potassium Chloride Carbon Dioxide BUN Creatinine Glucose POC Glucose 147 H 137 H 140 H Lactic Acid Uric Acid Calcium Phosphorus Iron TIBC Ferritin Total Bilirubin Direct Bilirubin Lactate Dehydrogenase C-Reactive Protein Serum Total Protein Albumin Vcbkp-5-Txxgbnmya Abnorm Protein Band 1 PEP Interpretation Crossmatch 10/16/16 10/16/16 10/16/16 11:15 11:15 11:15 WBC 25.8 H RBC 2.30 L Hgb 7.0 L Hct 22.3 L MCV 97 H MCHC 31 L RDW 21.2 H Plt Count 42 L Seg Neuts % (Manual) Lymphocytes % (Manual) 3.0 L Nucleated RBC % 2.0 H Seg Neutrophils # Man 11.1 H Lymphocytes # (Manual) 0.8 L Haptoglobin PT INR Fibrinogen Lupus Anticoagulant LA PTT Baseline POC ABG pH POC ABG pCO2 POC ABG pO2 Sodium Potassium Chloride 81.7 L Carbon Dioxide 13 L D BUN 61 H Creatinine 6.2 H Glucose 171 H POC Glucose Lactic Acid 22.70 H* Uric Acid Calcium 7.1 L Phosphorus 9.10 H Iron TIBC Ferritin Total Bilirubin Direct Bilirubin Lactate Dehydrogenase C-Reactive Protein Serum Total Protein Albumin Ckbak-7-Irkkdnvsu Abnorm Protein Band 1 PEP Interpretation Crossmatch 10/16/16 10/16/16 10/16/16 15:10 15:50 18:11 WBC RBC Hgb Hct MCV MCHC RDW Plt Count Seg Neuts % (Manual) Lymphocytes % (Manual) Nucleated RBC % Seg Neutrophils # Man Lymphocytes # (Manual) Haptoglobin PT INR Fibrinogen Lupus Anticoagulant LA PTT Baseline POC ABG pH POC ABG pCO2 POC ABG pO2 Sodium Potassium Chloride Carbon Dioxide BUN Creatinine Glucose POC Glucose 47 L 164 H 58 L Lactic Acid Uric Acid Calcium Phosphorus Iron TIBC Ferritin Total Bilirubin Direct Bilirubin Lactate Dehydrogenase C-Reactive Protein Serum Total Protein Albumin Xcolg-1-Rzedvpymd Abnorm Protein Band 1 PEP Interpretation Crossmatch 10/16/16 10/16/16 10/17/16 18:26 21:06 00:06 WBC RBC Hgb Hct MCV MCHC RDW Plt Count Seg Neuts % (Manual) Lymphocytes % (Manual) Nucleated RBC % Seg Neutrophils # Man Lymphocytes # (Manual) Haptoglobin PT INR Fibrinogen Lupus Anticoagulant LA PTT Baseline POC ABG pH POC ABG pCO2 POC ABG pO2 489 H Sodium Potassium Chloride Carbon Dioxide BUN Creatinine Glucose POC Glucose 52 L 120 H Lactic Acid Uric Acid Calcium Phosphorus Iron TIBC Ferritin Total Bilirubin Direct Bilirubin Lactate Dehydrogenase C-Reactive Protein Serum Total Protein Albumin Vzrpc-6-Sfsuyzwhd Abnorm Protein Band 1 PEP Interpretation Crossmatch 10/17/16 10/17/16 10/17/16 04:55 04:55 05:04 WBC 25.5 H RBC 2.23 L Hgb 6.6 L Hct 21.2 L MCV 95 H MCHC 31 L RDW 20.5 H Plt Count 35 L Seg Neuts % (Manual) 79.0 H Lymphocytes % (Manual) 0 L Nucleated RBC % Seg Neutrophils # Man 20.1 H Lymphocytes # (Manual) 0.0 L Haptoglobin PT INR Fibrinogen Lupus Anticoagulant LA PTT Baseline POC ABG pH POC ABG pCO2 27.2 L POC ABG pO2 162 H Sodium Potassium Chloride 91.5 L Carbon Dioxide 16 L BUN 45 H Creatinine 4.5 H Glucose 103 H POC Glucose Lactic Acid Uric Acid Calcium 6.9 L Phosphorus 5.80 H D Iron TIBC Ferritin Total Bilirubin Direct Bilirubin Lactate Dehydrogenase C-Reactive Protein Serum Total Protein Albumin Rdsco-7-Wvpqiojzw Abnorm Protein Band 1 PEP Interpretation Crossmatch 10/17/16 10/17/16 10/17/16 07:59 09:04 10:04 WBC RBC Hgb Hct MCV MCHC RDW Plt Count Seg Neuts % (Manual) Lymphocytes % (Manual) Nucleated RBC % Seg Neutrophils # Man Lymphocytes # (Manual) Haptoglobin PT INR Fibrinogen Lupus Anticoagulant LA PTT Baseline POC ABG pH POC ABG pCO2 POC ABG pO2 Sodium Potassium Chloride Carbon Dioxide BUN Creatinine Glucose POC Glucose 65 L 118 H Lactic Acid Uric Acid Calcium Phosphorus Iron TIBC Ferritin Total Bilirubin Direct Bilirubin Lactate Dehydrogenase C-Reactive Protein Serum Total Protein Albumin Ddiwq-0-Qcyyollza Abnorm Protein Band 1 PEP Interpretation Crossmatch See Detail 10/17/16 10/17/16 10/17/16 11:52 13:08 15:42 WBC RBC Hgb Hct MCV MCHC RDW Plt Count Seg Neuts % (Manual) Lymphocytes % (Manual) Nucleated RBC % Seg Neutrophils # Man Lymphocytes # (Manual) Haptoglobin PT INR Fibrinogen Lupus Anticoagulant LA PTT Baseline POC ABG pH POC ABG pCO2 POC ABG pO2 Sodium Potassium Chloride Carbon Dioxide BUN Creatinine Glucose POC Glucose 125 H 106 H 55 L Lactic Acid Uric Acid Calcium Phosphorus Iron TIBC Ferritin Total Bilirubin Direct Bilirubin Lactate Dehydrogenase C-Reactive Protein Serum Total Protein Albumin Jxnpa-2-Ldsfrvuqa Abnorm Protein Band 1 PEP Interpretation Crossmatch 10/17/16 10/17/16 10/17/16 17:39 20:37 21:02 WBC RBC Hgb Hct MCV MCHC RDW Plt Count Seg Neuts % (Manual) Lymphocytes % (Manual) Nucleated RBC % Seg Neutrophils # Man Lymphocytes # (Manual) Haptoglobin PT INR Fibrinogen Lupus Anticoagulant LA PTT Baseline POC ABG pH POC ABG pCO2 28.2 L POC ABG pO2 Sodium Potassium Chloride Carbon Dioxide BUN Creatinine Glucose POC Glucose < 40 L 106 H Lactic Acid Uric Acid Calcium Phosphorus Iron TIBC Ferritin Total Bilirubin Direct Bilirubin Lactate Dehydrogenase C-Reactive Protein Serum Total Protein Albumin Wdpla-6-Ttmjsyzle Abnorm Protein Band 1 PEP Interpretation Crossmatch 10/17/16 10/17/16 10/18/16 22:18 23:14 00:28 WBC RBC Hgb Hct MCV MCHC RDW Plt Count Seg Neuts % (Manual) Lymphocytes % (Manual) Nucleated RBC % Seg Neutrophils # Man Lymphocytes # (Manual) Haptoglobin PT INR Fibrinogen Lupus Anticoagulant LA PTT Baseline POC ABG pH POC ABG pCO2 POC ABG pO2 Sodium Potassium Chloride Carbon Dioxide BUN Creatinine Glucose POC Glucose 111 H 118 H 112 H Lactic Acid Uric Acid Calcium Phosphorus Iron TIBC Ferritin Total Bilirubin Direct Bilirubin Lactate Dehydrogenase C-Reactive Protein Serum Total Protein Albumin Lwqhm-8-Kmqyegrsf Abnorm Protein Band 1 PEP Interpretation Crossmatch 10/18/16 10/18/16 10/18/16 05:00 05:00 05:15 WBC 27.3 H RBC 2.75 L Hgb 7.9 L Hct 25.3 L MCV MCHC 31 L RDW 20.7 H Plt Count 31 L Seg Neuts % (Manual) 87.0 H Lymphocytes % (Manual) 1.0 L Nucleated RBC % 1.0 H Seg Neutrophils # Man 23.8 H Lymphocytes # (Manual) 0.3 L Haptoglobin PT INR Fibrinogen Lupus Anticoagulant LA PTT Baseline POC ABG pH 7.466 H POC ABG pCO2 25.1 L POC ABG pO2 Sodium Potassium Chloride 88.7 L Carbon Dioxide 18 L BUN 66 H Creatinine 4.7 H Glucose POC Glucose Lactic Acid Uric Acid Calcium 6.1 L Phosphorus 7.30 H D Iron TIBC Ferritin Total Bilirubin Direct Bilirubin Lactate Dehydrogenase C-Reactive Protein Serum Total Protein Albumin Qktct-4-Btodjgbmj Abnorm Protein Band 1 PEP Interpretation Crossmatch 10/18/16 10/18/16 10/18/16 07:15 07:44 09:07 WBC RBC Hgb Hct MCV MCHC RDW Plt Count Seg Neuts % (Manual) Lymphocytes % (Manual) Nucleated RBC % Seg Neutrophils # Man Lymphocytes # (Manual) Haptoglobin PT INR Fibrinogen Lupus Anticoagulant LA PTT Baseline POC ABG pH POC ABG pCO2 POC ABG pO2 Sodium Potassium Chloride Carbon Dioxide BUN Creatinine Glucose POC Glucose 64 L 156 H 117 H Lactic Acid Uric Acid Calcium Phosphorus Iron TIBC Ferritin Total Bilirubin Direct Bilirubin Lactate Dehydrogenase C-Reactive Protein Serum Total Protein Albumin Etnqi-9-Guzksvgmf Abnorm Protein Band 1 PEP Interpretation Crossmatch 10/18/16 10/18/16 10/18/16 09:15 14:00 18:21 WBC RBC Hgb Hct MCV MCHC RDW Plt Count Seg Neuts % (Manual) Lymphocytes % (Manual) Nucleated RBC % Seg Neutrophils # Man Lymphocytes # (Manual) Haptoglobin PT INR Fibrinogen Lupus Anticoagulant LA PTT Baseline POC ABG pH POC ABG pCO2 POC ABG pO2 Sodium Potassium Chloride Carbon Dioxide BUN Creatinine Glucose POC Glucose 106 H 112 H Lactic Acid 14.30 H* Uric Acid Calcium Phosphorus Iron TIBC Ferritin Total Bilirubin Direct Bilirubin Lactate Dehydrogenase C-Reactive Protein Serum Total Protein Albumin Uoiuk-1-Eehorjudd Abnorm Protein Band 1 PEP Interpretation Crossmatch 10/18/16 10/18/16 10/18/16 19:58 20:55 22:11 WBC RBC Hgb Hct MCV MCHC RDW Plt Count Seg Neuts % (Manual) Lymphocytes % (Manual) Nucleated RBC % Seg Neutrophils # Man Lymphocytes # (Manual) Haptoglobin PT INR Fibrinogen Lupus Anticoagulant LA PTT Baseline POC ABG pH POC ABG pCO2 POC ABG pO2 Sodium Potassium Chloride Carbon Dioxide BUN Creatinine Glucose POC Glucose 127 H 125 H 159 H Lactic Acid Uric Acid Calcium Phosphorus Iron TIBC Ferritin Total Bilirubin Direct Bilirubin Lactate Dehydrogenase C-Reactive Protein Serum Total Protein Albumin Iszyw-1-Mferkzcjf Abnorm Protein Band 1 PEP Interpretation Crossmatch 10/18/16 10/18/16 10/19/16 23:11 23:57 01:06 WBC RBC Hgb Hct MCV MCHC RDW Plt Count Seg Neuts % (Manual) Lymphocytes % (Manual) Nucleated RBC % Seg Neutrophils # Man Lymphocytes # (Manual) Haptoglobin PT INR Fibrinogen Lupus Anticoagulant LA PTT Baseline POC ABG pH POC ABG pCO2 POC ABG pO2 Sodium Potassium Chloride Carbon Dioxide BUN Creatinine Glucose POC Glucose 122 H 137 H 162 H Lactic Acid Uric Acid Calcium Phosphorus Iron TIBC Ferritin Total Bilirubin Direct Bilirubin Lactate Dehydrogenase C-Reactive Protein Serum Total Protein Albumin Zuddq-5-Bimrggbpz Abnorm Protein Band 1 PEP Interpretation Crossmatch 10/19/16 10/19/16 10/19/16 01:59 03:07 04:10 WBC RBC Hgb Hct MCV MCHC RDW Plt Count Seg Neuts % (Manual) Lymphocytes % (Manual) Nucleated RBC % Seg Neutrophils # Man Lymphocytes # (Manual) Haptoglobin PT INR Fibrinogen Lupus Anticoagulant LA PTT Baseline POC ABG pH POC ABG pCO2 POC ABG pO2 Sodium Potassium Chloride Carbon Dioxide BUN Creatinine Glucose POC Glucose 154 H 178 H 186 H Lactic Acid Uric Acid Calcium Phosphorus Iron TIBC Ferritin Total Bilirubin Direct Bilirubin Lactate Dehydrogenase C-Reactive Protein Serum Total Protein Albumin Dntvk-0-Gvmpixvao Abnorm Protein Band 1 PEP Interpretation Crossmatch 10/19/16 10/19/16 10/19/16 05:14 05:15 05:47 WBC RBC Hgb Hct MCV MCHC RDW Plt Count Seg Neuts % (Manual) Lymphocytes % (Manual) Nucleated RBC % Seg Neutrophils # Man Lymphocytes # (Manual) Haptoglobin PT INR Fibrinogen Lupus Anticoagulant LA PTT Baseline POC ABG pH 7.581 H POC ABG pCO2 22.9 L POC ABG pO2 58 L Sodium Potassium Chloride Carbon Dioxide BUN Creatinine Glucose POC Glucose 197 H 204 H Lactic Acid Uric Acid Calcium Phosphorus Iron TIBC Ferritin Total Bilirubin Direct Bilirubin Lactate Dehydrogenase C-Reactive Protein Serum Total Protein Albumin Resiy-1-Ijrzsfbfk Abnorm Protein Band 1 PEP Interpretation Crossmatch 10/19/16 10/19/16 10/19/16 06:00 06:00 07:51 WBC 23.0 H RBC 2.54 L Hgb 7.5 L Hct 23.0 L MCV MCHC RDW 20.7 H Plt Count 25 L Seg Neuts % (Manual) 91.0 H Lymphocytes % (Manual) 2.0 L Nucleated RBC % 1.0 H Seg Neutrophils # Man 20.9 H Lymphocytes # (Manual) 0.5 L Haptoglobin PT INR Fibrinogen Lupus Anticoagulant LA PTT Baseline POC ABG pH POC ABG pCO2 POC ABG pO2 Sodium Potassium Chloride 88.7 L Carbon Dioxide 21 L BUN 70 H Creatinine 3.9 H Glucose 189 H POC Glucose 145 H Lactic Acid Uric Acid Calcium 5.6 L* Phosphorus 6.30 H Iron TIBC Ferritin Total Bilirubin Direct Bilirubin Lactate Dehydrogenase C-Reactive Protein Serum Total Protein Albumin Zyqtw-2-Liaporqpx Abnorm Protein Band 1 PEP Interpretation Crossmatch 10/19/16 10/19/16 10/19/16 09:14 10:01 12:14 WBC RBC Hgb Hct MCV MCHC RDW Plt Count Seg Neuts % (Manual) Lymphocytes % (Manual) Nucleated RBC % Seg Neutrophils # Man Lymphocytes # (Manual) Haptoglobin PT INR Fibrinogen Lupus Anticoagulant LA PTT Baseline POC ABG pH POC ABG pCO2 POC ABG pO2 Sodium Potassium Chloride Carbon Dioxide BUN Creatinine Glucose POC Glucose 173 H 153 H 180 H Lactic Acid Uric Acid Calcium Phosphorus Iron TIBC Ferritin Total Bilirubin Direct Bilirubin Lactate Dehydrogenase C-Reactive Protein Serum Total Protein Albumin Iigxv-8-Xhrlpoqqk Abnorm Protein Band 1 PEP Interpretation Crossmatch 10/19/16 10/19/16 10/19/16 16:38 20:27 23:27 WBC RBC Hgb Hct MCV MCHC RDW Plt Count Seg Neuts % (Manual) Lymphocytes % (Manual) Nucleated RBC % Seg Neutrophils # Man Lymphocytes # (Manual) Haptoglobin PT INR Fibrinogen Lupus Anticoagulant LA PTT Baseline POC ABG pH POC ABG pCO2 POC ABG pO2 Sodium Potassium Chloride Carbon Dioxide BUN Creatinine Glucose POC Glucose 194 H 202 H 201 H Lactic Acid Uric Acid Calcium Phosphorus Iron TIBC Ferritin Total Bilirubin Direct Bilirubin Lactate Dehydrogenase C-Reactive Protein Serum Total Protein Albumin Dmpym-6-Wugypxokb Abnorm Protein Band 1 PEP Interpretation Crossmatch 10/20/16 10/20/16 10/20/16 04:06 05:00 05:16 WBC RBC Hgb Hct MCV MCHC RDW Plt Count Seg Neuts % (Manual) Lymphocytes % (Manual) Nucleated RBC % Seg Neutrophils # Man Lymphocytes # (Manual) Haptoglobin PT INR Fibrinogen Lupus Anticoagulant LA PTT Baseline POC ABG pH 7.463 H POC ABG pCO2 POC ABG pO2 157 H Sodium Potassium Chloride 88.8 L Carbon Dioxide BUN 93 H Creatinine 4.3 H Glucose 204 H POC Glucose 200 H Lactic Acid Uric Acid Calcium 5.2 L* Phosphorus Iron TIBC Ferritin Total Bilirubin Direct Bilirubin Lactate Dehydrogenase C-Reactive Protein Serum Total Protein Albumin Uikod-0-Iyyhueugp Abnorm Protein Band 1 PEP Interpretation Crossmatch 10/20/16 10/20/16 06:00 07:43 WBC 24.8 H RBC 2.52 L Hgb 7.4 L Hct 22.9 L MCV MCHC RDW 19.9 H Plt Count 23 L Seg Neuts % (Manual) 97.0 H Lymphocytes % (Manual) 1.0 L Nucleated RBC % 9.0 H Seg Neutrophils # Man 24.1 H Lymphocytes # (Manual) 0.2 L Haptoglobin PT INR Fibrinogen Lupus Anticoagulant LA PTT Baseline POC ABG pH POC ABG pCO2 POC ABG pO2 Sodium Potassium Chloride Carbon Dioxide BUN Creatinine Glucose POC Glucose 192 H Lactic Acid Uric Acid Calcium Phosphorus Iron TIBC Ferritin Total Bilirubin Direct Bilirubin Lactate Dehydrogenase C-Reactive Protein Serum Total Protein Albumin Cutbi-1-Foxdbrpzo Abnorm Protein Band 1 PEP Interpretation Crossmatch Allied health notes reviewed: RT ED Critical Care Note - Critical Care Note Total Time (mins): 35
--- NOTE | 2016-10-20 11:24 | Progress Note ---
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 Acute respiratory failure - intubated. Sepsis / beta hemolitic strep bacterimia / leukocytosis Paroxysmal atrial fibrillation with variable ventricular response --> SR Acute metabolic encephalopathy ARF on CKD - requiring HD Profound metabolic acidemia/lactic acidosis Anemia / thrombocytopenia Hypocalcemia Plan: Cont PO amio, 200mg BID. Given anemia and thrombocytopenia, would defer systemic anticoagulation for now. Second blood culture with no growth after 72 hours and thus JONATHAN is not currently indicated. Consider ischemic evaluation when medically stabilized. No ACEI/ARB in setting of ARF on CKD. No BB in setting of hypotension. Watch volume status closely Poor prognosis. The patient has been seen in conjunction with Dr. Vargas who agrees with the assessment and plan of care. Subjective Date of service: 10/20/16 Principal diagnosis: Sepsis Syndrome; MAHA; RAJESH; CHF Interval history: Pt remains intubated, sedated. On levo gtt. Currently in SR. No family at bedside. Objective Last Vital Signs Temp 99.6 F 10/20/16 09:40 Pulse 69 10/20/16 11:00 Resp 22 10/20/16 09:40 BP 128/84 10/20/16 11:00 Pulse Ox 99 10/20/16 10:15 - Physical Examination General: Other (intubated; nonresponsive ) Neck: Positive: neck supple, trachea midline Cardiac: Positive: Reg Rate and Rhythm, S1/S2 Lungs: Positive: Decreased Breath Sounds, Ventilated Respirations Neuro: Positive: Other (intubated; nonresponsive ) Abdomen: Positive: Soft, Active Bowel Sounds Skin: Positive: Clear. Negative: Rash, Wound Musculoskeletal: No Fluid Collection, No Pain, Normal Range of Motion Extremities: Present: upper extr. pulses, lower extr. pulses. Absent: edema - Labs and Meds CBC 10/20/16 Range/Units 06:00 WBC 24.8 H (4.5-11.0) K/mm3 RBC 2.52 L (3.65-5.03) M/mm3 Hgb 7.4 L (11.8-15.2) gm/dl Hct 22.9 L (35.5-45.6) % Plt Count 23 L (140-440) K/mm3 Comprehensive Metabolic Panel 10/20/16 Range/Units 05:00 Sodium 137 (137-145) mmol/L Potassium 3.7 (3.6-5.0) mmol/L Chloride 88.8 L (98-107) mmol/L Carbon Dioxide 24 (22-30) mmol/L BUN 93 H (9-20) mg/dL Creatinine 4.3 H (0.8-1.5) mg/dL Glucose 204 H (75-100) mg/dL Calcium 5.2 L* (8.4-10.2) mg/dL - Imaging and Cardiology EKG: report reviewed, image reviewed Echo: report reviewed - Telemetry EKG Rhythm: Sinus Rhythm - Allied health notes Allied health notes reviewed: RT
--- NOTE | 2016-10-20 11:52 | Progress Note ---
Assessment and Plan - Patient Problems (1) Renal failure Current Visit: Yes Status: Acute Qualifiers: Renal failure chronicity: acute Acute renal failure type: unspecified Chronic kidney disease stage: C Qualified Code(s): N17.9 - Acute kidney failure, unspecified Plan to address problem: Hemodialyzing today for UF and clearance Strict I/O monitoring Avoid Nephrotoxic agents Renally dose medications Obtain daily weights Assess dialysis needs daily (2) Pancytopenia Current Visit: Yes Status: Acute Plan to address problem: 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 Possible Amyloidosis. On Plasmaphareis- scheduled to receive therapy today (3) Acute respiratory failure Current Visit: Yes Status: Acute Qualifiers: Respiratory failure complication: hypoxia Qualified Code(s): J96.01 - Acute respiratory failure with hypoxia Plan to address problem: Intubated as per Pulmonary (4) Metabolic acidosis Current Visit: Yes Status: Acute Plan to address problem: Hemodialysis as needed (5) Anemia Current Visit: Yes Status: Acute Qualifiers: Anemia type: unspecified type Iron deficiency anemia type: I Vitamin B12 deficiency anemia type: V Folate deficiency anemia type: F Bone marrow failure anemia type: B Hemolytic anemia type: H Other causes of anemia: O Qualified Code(s): D64.9 - Anemia, unspecified Plan to address problem: Monitor labs and transfuse as needed Hematology onboard (6) Atrial fibrillation Current Visit: Yes Status: Acute Qualifiers: Atrial fibrillation type: A Plan to address problem: On Amiodarone as per Cardiology Echo-LVEF 30-35% (7) Hypocalcemia Current Visit: Yes Status: Acute Plan to address problem: Calcium Gluconate 2 gram Iv x1 Subjective Date of service: 10/20/16 Principal diagnosis: Sepsis Syndrome; MAHA; RAJESH; CHF Interval history: Patient is intubated and sedated. No family at bedside. Currently receiving dialysis at bedside. Objective - Vital Signs Vital signs: Vital Signs - 12hr 10/20/16 10/20/16 10/20/16 00:00 00:15 00:30 Temperature 100.4 F H Pulse Rate 68 68 68 Pulse Rate [ From Monitor] Respiratory 22 21 20 Rate Blood Pressure 130/84 124/83 126/82 O2 Sat by Pulse 100 100 100 Oximetry O2 Sat by Pulse Oximetry [ Anterior Bilateral Throughout] 10/20/16 10/20/16 10/20/16 00:45 01:00 01:15 Temperature Pulse Rate 68 67 67 Pulse Rate [ From Monitor] Respiratory 21 24 16 Rate Blood Pressure 118/77 113/76 112/75 O2 Sat by Pulse 100 100 100 Oximetry O2 Sat by Pulse Oximetry [ Anterior Bilateral Throughout] 10/20/16 10/20/16 10/20/16 01:30 01:45 02:00 Temperature Pulse Rate 68 67 67 Pulse Rate [ From Monitor] Respiratory 27 H 20 18 Rate Blood Pressure 118/75 116/75 116/75 O2 Sat by Pulse 100 100 100 Oximetry O2 Sat by Pulse Oximetry [ Anterior Bilateral Throughout] 10/20/16 10/20/16 10/20/16 02:15 02:30 02:45 Temperature Pulse Rate 68 67 67 Pulse Rate [ From Monitor] Respiratory 15 28 H 26 H Rate Blood Pressure 116/74 113/79 113/76 O2 Sat by Pulse 84 96 100 Oximetry O2 Sat by Pulse Oximetry [ Anterior Bilateral Throughout] 10/20/16 10/20/16 10/20/16 03:00 03:15 03:30 Temperature Pulse Rate 67 67 67 Pulse Rate [ From Monitor] Respiratory 23 25 H 23 Rate Blood Pressure 119/77 116/79 118/76 O2 Sat by Pulse 100 100 100 Oximetry O2 Sat by Pulse Oximetry [ Anterior Bilateral Throughout] 10/20/16 10/20/16 10/20/16 03:45 04:00 04:01 Temperature 100.3 F H Pulse Rate 67 66 67 Pulse Rate [ From Monitor] Respiratory 19 21 Rate Blood Pressure 124/78 107/71 118/75 O2 Sat by Pulse 100 98 100 Oximetry O2 Sat by Pulse Oximetry [ Anterior Bilateral Throughout] 10/20/16 10/20/16 10/20/16 04:15 04:30 04:45 Temperature Pulse Rate 67 66 66 Pulse Rate [ From Monitor] Respiratory 18 20 22 Rate Blood Pressure 114/74 109/73 107/71 O2 Sat by Pulse 100 100 100 Oximetry O2 Sat by Pulse Oximetry [ Anterior Bilateral Throughout] 10/20/16 10/20/16 10/20/16 05:00 05:15 05:30 Temperature Pulse Rate 72 66 66 Pulse Rate [ From Monitor] Respiratory 22 21 21 Rate Blood Pressure 114/76 106/70 99/67 O2 Sat by Pulse 100 100 100 Oximetry O2 Sat by Pulse Oximetry [ Anterior Bilateral Throughout] 10/20/16 10/20/16 10/20/16 05:45 06:00 06:15 Temperature Pulse Rate 66 66 67 Pulse Rate [ From Monitor] Respiratory 22 21 22 Rate Blood Pressure 103/69 106/68 93/62 O2 Sat by Pulse 100 100 95 Oximetry O2 Sat by Pulse Oximetry [ Anterior Bilateral Throughout] 10/20/16 10/20/16 10/20/16 06:30 06:45 07:00 Temperature Pulse Rate 67 67 66 Pulse Rate [ From Monitor] Respiratory 23 26 H 22 Rate Blood Pressure 100/67 105/66 101/65 O2 Sat by Pulse 100 100 98 Oximetry O2 Sat by Pulse Oximetry [ Anterior Bilateral Throughout] 10/20/16 10/20/16 10/20/16 07:15 07:30 07:45 Temperature Pulse Rate 66 66 66 Pulse Rate [ From Monitor] Respiratory 22 23 25 H Rate Blood Pressure 100/65 101/65 107/68 O2 Sat by Pulse 93 100 99 Oximetry O2 Sat by Pulse Oximetry [ Anterior Bilateral Throughout] 10/20/16 10/20/16 10/20/16 07:55 08:00 08:15 Temperature 99.6 F Pulse Rate 65 67 Pulse Rate [ 65 From Monitor] Respiratory 15 29 H Rate Blood Pressure 105/70 113/75 O2 Sat by Pulse 100 100 Oximetry O2 Sat by Pulse Oximetry [ Anterior Bilateral Throughout] 10/20/16 10/20/16 10/20/16 08:30 09:40 09:55 Temperature 99.6 F Pulse Rate 67 73 73 Pulse Rate [ From Monitor] Respiratory 22 22 Rate Blood Pressure 112/76 110/74 110/74 O2 Sat by Pulse 100 Oximetry O2 Sat by Pulse 100 Oximetry [ Anterior Bilateral Throughout] 10/20/16 10/20/16 10/20/16 10:00 10:15 10:30 Temperature Pulse Rate 67 66 67 Pulse Rate [ From Monitor] Respiratory Rate Blood Pressure 120/75 128/80 137/82 O2 Sat by Pulse 99 Oximetry O2 Sat by Pulse Oximetry [ Anterior Bilateral Throughout] 10/20/16 10/20/16 10/20/16 10:45 11:00 11:15 Temperature Pulse Rate 66 69 71 Pulse Rate [ From Monitor] Respiratory Rate Blood Pressure 119/76 128/84 115/83 O2 Sat by Pulse Oximetry O2 Sat by Pulse Oximetry [ Anterior Bilateral Throughout] 10/20/16 11:30 Temperature Pulse Rate 70 Pulse Rate [ From Monitor] Respiratory Rate Blood Pressure 140/88 O2 Sat by Pulse Oximetry O2 Sat by Pulse Oximetry [ Anterior Bilateral Throughout] - General Appearance General appearance: sedated on ventilator, intubated EENT: ATNC Neck: no JVD Respiratory: Present: Decreased Breath Sounds Cardiology: regular, S1S2 Gastrointestinal: normoactive bowel sounds, other (Has dobhoff tube feeding.) Integumentary: warm and dry Neurologic: other (sedated) Musculoskeletal: joint swelling - Lab 10/20/16 06:00 10/20/16 05:00 Most recent lab results Calcium 5.2 mg/dL (8.4-10.2) L* 10/20/16 05:00 Phosphorus 6.30 mg/dL (2.5-4.5) H 10/19/16 06:00
[2016-10-20] MEDS ORDERED: NACL 0.9% 1000 ML 2,000 ML ONE (12:26)
--- NOTE | 2016-10-20 12:49 | Progress Note ---
Assessment and Plan - Patient Problems (1) Sepsis Current Visit: Yes Status: Acute Qualifiers: Sepsis type: Streptococcus group B Qualified Code(s): A40.1 - Sepsis due to streptococcus, group B Plan to address problem: Continue current antimicrobials. JONATHAN is recommended given limited clinical improvement. Subjective Date of service: 10/20/16 Principal diagnosis: Sepsis Syndrome; MAHA; RAJESH; CHF Interval history: Remains afebrile in ICU. Critically ill still. Objective - Exam Narrative Exam: intubated, minimally responsive, FiO2 28% - Constitutional Vitals: Vital Signs Temp Pulse Resp BP Pulse Ox 98.3 F 71 22 135/87 99 10/20/16 12:00 10/20/16 12:30 10/20/16 09:40 10/20/16 12:30 10/20/16 10:15 Temperature -Last 24 Hours Temperature 98.3 F Temperature 99.6 F Temperature 99.6 F Temperature 100.3 F Temperature 100.4 F Temperature 100.6 F - EENT Eyes: no conjunctival injection ENT: other (ET and Dobhoff tubes in place) - Neck Neck: supple, other (right IJ vascath, no surrounding inflammation) - Respiratory Respiratory: bilateral: CTA, negative: rhonchi Extremities: No edema Extremity abnormal: erythema (ecchymoses/ purpura along feet and legs) - Gastrointestinal General gastrointestinal: Present: soft, non-distended, normal bowel sounds - Integumentary Integumentary: erythema (per above), no rash - Labs CBC & Chem 7: 10/20/16 06:00 10/20/16 05:00 Labs: Abnormal lab results 10/17/16 10/19/16 10/19/16 Range/Units 07:59 12:14 16:38 WBC (4.5-11.0) K/mm3 RBC (3.65-5.03) M/mm3 Hgb (11.8-15.2) gm/dl Hct (35.5-45.6) % RDW (13.2-15.2) % Plt Count (140-440) K/mm3 Seg Neuts % (Manual) (40.0-70.0) % Lymphocytes % (Manual) (13.4-35.0) % Nucleated RBC % (0.0-0.9) % Seg Neutrophils # Man (1.8-7.7) K/mm3 Lymphocytes # (Manual) (1.2-5.4) K/mm3 POC ABG pH (7.35-7.45) POC ABG pO2 (80-105) Chloride (98-107) mmol/L BUN (9-20) mg/dL Creatinine (0.8-1.5) mg/dL Glucose (75-100) mg/dL POC Glucose 180 H 194 H (70-105) Calcium (8.4-10.2) mg/dL Crossmatch See Detail 10/19/16 10/19/16 10/20/16 Range/Units 20:27 23:27 04:06 WBC (4.5-11.0) K/mm3 RBC (3.65-5.03) M/mm3 Hgb (11.8-15.2) gm/dl Hct (35.5-45.6) % RDW (13.2-15.2) % Plt Count (140-440) K/mm3 Seg Neuts % (Manual) (40.0-70.0) % Lymphocytes % (Manual) (13.4-35.0) % Nucleated RBC % (0.0-0.9) % Seg Neutrophils # Man (1.8-7.7) K/mm3 Lymphocytes # (Manual) (1.2-5.4) K/mm3 POC ABG pH (7.35-7.45) POC ABG pO2 (80-105) Chloride (98-107) mmol/L BUN (9-20) mg/dL Creatinine (0.8-1.5) mg/dL Glucose (75-100) mg/dL POC Glucose 202 H 201 H 200 H (70-105) Calcium (8.4-10.2) mg/dL Crossmatch 10/20/16 10/20/16 10/20/16 Range/Units 05:00 05:16 06:00 WBC 24.8 H (4.5-11.0) K/mm3 RBC 2.52 L (3.65-5.03) M/mm3 Hgb 7.4 L (11.8-15.2) gm/dl Hct 22.9 L (35.5-45.6) % RDW 19.9 H (13.2-15.2) % Plt Count 23 L (140-440) K/mm3 Seg Neuts % (Manual) 97.0 H (40.0-70.0) % Lymphocytes % (Manual) 1.0 L (13.4-35.0) % Nucleated RBC % 9.0 H (0.0-0.9) % Seg Neutrophils # Man 24.1 H (1.8-7.7) K/mm3 Lymphocytes # (Manual) 0.2 L (1.2-5.4) K/mm3 POC ABG pH 7.463 H (7.35-7.45) POC ABG pO2 157 H (80-105) Chloride 88.8 L (98-107) mmol/L BUN 93 H (9-20) mg/dL Creatinine 4.3 H (0.8-1.5) mg/dL Glucose 204 H (75-100) mg/dL POC Glucose (70-105) Calcium 5.2 L* (8.4-10.2) mg/dL Crossmatch 10/20/16 10/20/16 Range/Units 07:43 12:11 WBC (4.5-11.0) K/mm3 RBC (3.65-5.03) M/mm3 Hgb (11.8-15.2) gm/dl Hct (35.5-45.6) % RDW (13.2-15.2) % Plt Count (140-440) K/mm3 Seg Neuts % (Manual) (40.0-70.0) % Lymphocytes % (Manual) (13.4-35.0) % Nucleated RBC % (0.0-0.9) % Seg Neutrophils # Man (1.8-7.7) K/mm3 Lymphocytes # (Manual) (1.2-5.4) K/mm3 POC ABG pH (7.35-7.45) POC ABG pO2 (80-105) Chloride (98-107) mmol/L BUN (9-20) mg/dL Creatinine (0.8-1.5) mg/dL Glucose (75-100) mg/dL POC Glucose 192 H 172 H (70-105) Calcium (8.4-10.2) mg/dL Crossmatch Microbiology 10/16/16 21:15 Peripheral/Venous Blood Culture - Preliminary NO GROWTH AFTER 72 HOURS 10/16/16 20:30 Peripheral/Venous Blood Culture - Preliminary NO GROWTH AFTER 72 HOURS 10/16/16 21:00 Tracheal Aspirate Sputum Culture - Final Sara Albicans 10/14/16 16:15 Peripheral/Venous Blood Culture - Preliminary Beta Hemolytic Strep Group B 10/14/16 15:33 Peripheral/Venous Blood Culture - Preliminary Beta Hemolytic Strep Group B Active Medications Acetaminophen (Tylenol) 650 mg PO Q6H PRN PRN Reason: pain Last Admin: 10/19/16 08:24 Dose: 650 mg Acetaminophen (Tylenol) 1,000 mg NE Q4H PRN PRN Reason: Pain, Mild (1-3) Last Admin: 10/17/16 18:15 Dose: 1,000 mg Amiodarone HCl (Cordarone) 200 mg PO BID [facility] Last Admin: 10/20/16 10:24 Dose: Not Given Lipase/Protease/Amylase (Pancreaze Dr 10,500 Unit) 1 each FEEDTUBE PRN PRN PRN Reason: For Clogged Feeding Tube Dextrose (D50w (25gm)) 25 ml IV PRN PRN PRN Reason: Hypoglycemia Last Admin: 10/18/16 07:20 Dose: 25 ml Diphenhydramine HCl (Benadryl) 50 mg IV Q6H PRN PRN Reason: Itching Last Admin: 10/19/16 08:25 Dose: 50 mg Famotidine (Pepcid) 20 mg PO Q24H [facility] Last Admin: 10/20/16 10:23 Dose: Not Given Haloperidol Lactate (Haldol) 5 mg IM Q6H PRN PRN Reason: Agitation Last Admin: 10/14/16 21:11 Dose: 5 mg Heparin Sodium (Porcine) (Heparin) 10,000 unit IV ROD PRN PRN Reason: for plasmapheresis- vascath Hydrocortisone Sodium Succinate (Solu-Cortef) 60 mg IV Q6HR [facility] Hydrophilic Ointment (Vaseline Lip Therapy) 1 applic TP Q2H PRN PRN Reason: Dry Lips Sodium Chloride (Nacl 0.9%) 100 mls @ 999 mls/hr IV ROD PRN PRN Reason: Hypotension Sodium Chloride (Nacl 0.9%) 100 mls @ 999 mls/hr IV ROD PRN PRN Reason: Hypotension Sodium Chloride (Nacl 0.9%) 100 mls @ 999 mls/hr IV ROD PRN PRN Reason: Hypotension Clindamycin HCl (Cleocin 900 Mg/50 Ml) 900 mg in 50 mls @ 100 mls/hr IV Q8H EDWINA PRN Reason: Protocol Last Admin: 10/20/16 04:41 Dose: 100 mls/hr Norepinephrine (Levophed Drip 4 Mg/Ns 250 Ml) 4 mg in 250 mls @ 7.5 mls/hr IV TITR EDWINA; 2 MCG/MIN PRN Reason: Protocol Last Admin: 10/19/16 18:56 Dose: 4 mcg/min, 15 mls/hr Propofol (Diprivan 10 Mg/Ml) 1,000 mg in 100 mls @ 1.827 mls/hr IV TITR EDWINA; 5 MCG/KG/MIN PRN Reason: Protocol Last Admin: 10/20/16 01:24 Dose: 10 mcg/kg/min, 3.654 mls/hr Fentanyl Citrate (Fentanyl Drip Premix) 2,000 mcg in 100 mls @ 3.045 mls/hr IV TITR EDWINA; 1 MCG/KG/HR PRN Reason: Protocol Dextrose/Sodium Chloride (D5/0.45ns) 1,000 mls @ 75 mls/hr IV DIRECT EDWINA Last Admin: 10/19/16 21:21 Dose: 75 mls/hr Calcium Gluconate 2,000 mg/ (Sodium Chloride) 120 mls @ 660 mls/hr IV ONCE ONE Stop: 10/20/16 13:10 Multi-Ingred Cream/Lotion/Oil/Oint (Artificial Tears Ophth Oint) 1 applic OU Q4H PRN PRN Reason: Dry Eye(s) Ondansetron HCl (Zofran) 4 mg IV Q8H PRN PRN Reason: Nausea And Vomiting Simple Syrup (Simple Syrup) 15 ml FEEDTUBE PRN PRN PRN Reason: Hypoglycemia Simple Syrup (Simple Syrup) 30 ml FEEDTUBE PRN PRN PRN Reason: Hypoglycemia Sodium Bicarbonate (Sodium Bicarbonate) 325 mg FEEDTUBE PRN PRN PRN Reason: For Clogged Feeding Tube Sodium Chloride (Sodium Chloride Flush Syringe 10 Ml) 10 ml IV PRN PRN PRN Reason: LINE FLUSH Last Admin: 10/17/16 20:45 Dose: 10 ml Vancomycin HCl (Vancomycin Pharmacy To Dose) 1 each IV PKCONSULT EDWINA PRN Reason: Protocol - Imaging and cardiology Chest x-ray: report reviewed (no CHF or pneumonia)
[2016-10-20] MEDS ORDERED: CALCIUM GLUCONATE 2,000 MG in NACL 0.9% 100 ML IV ONE ×3 (13:00→16:45)
[2016-10-20] MEDS: HEPARIN IV PRN (13:05)
[2016-10-20] MEDS: D5/0.45NS 1,000 ML IV SCH (14:14)
--- NOTE | 2016-10-20 15:27 | Progress Note ---
Assessment and Plan Assessment and plan: Patient is a 61-year-old man with no significant past medical history who presented to the emergency department PSYCHIATRIC 10/13/16, complaining of bilateral leg swelling that worsened for the last 4 days. He was found to have severe metabolic acidosis, creatinine was 14.5 with hyperkalemia, emergent Hemodialysis was set up. He was found to have severe pancytopenia and thrombocytopenia. Dr. 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 He was on bipap and was intubated 10/16/16, details are not readily available on why he needed to be intubated, no nursing note for . -Acute encephalopathy, not sedated, will consult Neurology. 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 Follow up on respiratory failure, patient still intubated. Overnight uneventful. No cp, sob, n/v or severe headaches. Imaging, old records, testing, labs, nursing notes reviewed. Hospitalist Physical - Physical exam Narrative exam: GEN: Critically ill intubated but not sedated HEENT: Eyes are floating, ET tube in place CVS: irregular, NORMAL S1S2 LUNGS/CHEST: NORMAL CHEST EXPANSION B, GOOD AIR ENTRY B ABD: SOFT, POSITIVE BOWEL SOUNDS, NONDISTENDED, NO REBOUND OR GUARDING NEURO: CN 2-12 GROSSLY INTACT, he doesn't follow commands PSY: Unresponsive - Constitutional Vitals: Temp Pulse Resp BP Pulse Ox 98.3 F 70 22 114/69 100 10/20/16 13:10 10/20/16 14:07 10/20/16 09:40 10/20/16 14:07 10/20/16 14:07 General appearance: Present: well-nourished Results - Labs CBC & Chem 7: 10/20/16 06:00 10/20/16 05:00 Labs: Laboratory Last Values WBC 24.8 K/mm3 (4.5-11.0) H 10/20/16 06:00 RBC 2.52 M/mm3 (3.65-5.03) L 10/20/16 06:00 Hgb 7.4 gm/dl (11.8-15.2) L 10/20/16 06:00 Hct 22.9 % (35.5-45.6) L 10/20/16 06:00 MCV 91 fl (84-94) 10/20/16 06:00 MCH 29 pg (28-32) 10/20/16 06:00 MCHC 32 % (32-34) 10/20/16 06:00 RDW 19.9 % (13.2-15.2) H 10/20/16 06:00 Plt Count 23 K/mm3 (140-440) L 10/20/16 06:00 Lymph % (Auto) Acetaldehyde Converter Operator 10/14/16 04:34 [place] % (Auto) Acetaldehyde Converter Operator 10/14/16 04:34 Eos % (Auto) Acetaldehyde Converter Operator 10/14/16 04:34 Baso % (Auto) Acetaldehyde Converter Operator 10/14/16 04:34 Lymph # Acetaldehyde Converter Operator 10/14/16 04:34 [place] # Acetaldehyde Converter Operator 10/14/16 04:34 Eos # Acetaldehyde Converter Operator 10/14/16 04:34 Baso # Acetaldehyde Converter Operator 10/14/16 04:34 Add Manual Diff Complete 10/20/16 06:00 Total Counted 100 10/20/16 06:00 Seg Neutrophils % Acetaldehyde Converter Operator 10/19/16 06:00 Seg Neuts % (Manual) 97.0 % (40.0-70.0) H 10/20/16 06:00 Band Neutrophils % 0 % 10/20/16 06:00 Lymphocytes % (Manual) 1.0 % (13.4-35.0) L 10/20/16 06:00 Reactive Lymphs % (Man) 0 % 10/20/16 06:00 Monocytes % (Manual) 1.0 % (0.0-7.3) 10/20/16 06:00 Eosinophils % (Manual) 0 % (0.0-4.3) 10/20/16 06:00 Basophils % (Manual) 0 % (0.0-1.8) 10/20/16 06:00 Metamyelocytes % 0 % 10/20/16 06:00 Myelocytes % 1.0 % 10/20/16 06:00 Promyelocytes % 0 % 10/20/16 06:00 Blast Cells % 0 % 10/20/16 06:00 Nucleated RBC % 9.0 % (0.0-0.9) H 10/20/16 06:00 Seg Neutrophils # Acetaldehyde Converter Operator 10/14/16 04:34 Seg Neutrophils # Man 24.1 K/mm3 (1.8-7.7) H 10/20/16 06:00 Band Neutrophils # 0.0 K/mm3 10/20/16 06:00 Lymphocytes # (Manual) 0.2 K/mm3 (1.2-5.4) L 10/20/16 06:00 Abs React Lymphs (Man) 0.0 K/mm3 10/20/16 06:00 Monocytes # (Manual) 0.2 K/mm3 (0.0-0.8) 10/20/16 06:00 Eosinophils # (Manual) 0.0 K/mm3 (0.0-0.4) 10/20/16 06:00 Basophils # (Manual) 0.0 K/mm3 (0.0-0.1) 10/20/16 06:00 Metamyelocytes # 0.0 K/mm3 10/20/16 06:00 Myelocytes # 0.2 K/mm3 10/20/16 06:00 Promyelocytes # 0.0 K/mm3 10/20/16 06:00 Blast Cells # 0.0 K/mm3 10/20/16 06:00 WBC Morphology Not Reportable 10/20/16 06:00 Hypersegmented Neuts Not Reportable 10/20/16 06:00 Hyposegmented Neuts Not Reportable 10/20/16 06:00 Hypogranular Neuts Not Reportable 10/20/16 06:00 Smudge Cells Not Reportable 10/20/16 06:00 Toxic Granulation Few 10/20/16 06:00 Toxic Vacuolation Not Reportable 10/20/16 06:00 Dohle Bodies Not Reportable 10/20/16 06:00 Pelger-Huet Anomaly Not Reportable 10/20/16 06:00 Madhu Rods Not Reportable 10/20/16 06:00 Platelet Estimate Appears decreased 10/20/16 06:00 Clumped Platelets Not Reportable 10/20/16 06:00 Plt Clumps, EDTA Not Reportable 10/20/16 06:00 Large Platelets Few 10/20/16 06:00 Giant Platelets Not Reportable 10/20/16 06:00 Platelet Satelliting Not Reportable 10/20/16 06:00 Plt Morphology Comment Not Reportable 10/20/16 06:00 RBC Morphology Not Reportable 10/20/16 06:00 Dimorphic RBCs Not Reportable 10/20/16 06:00 Polychromasia Not Reportable 10/20/16 06:00 Hypochromasia 1+ 10/20/16 06:00 Poikilocytosis Not Reportable 10/20/16 06:00 Anisocytosis 2+ 10/20/16 06:00 Microcytosis Not Reportable 10/20/16 06:00 Macrocytosis Rare 10/20/16 06:00 Spherocytes Not Reportable 10/20/16 06:00 Pappenheimer Bodies Not Reportable 10/20/16 06:00 Sickle Cells Not Reportable 10/20/16 06:00 Target Cells Not Reportable 10/20/16 06:00 Tear Drop Cells Not Reportable 10/20/16 06:00 Ovalocytes Not Reportable 10/20/16 06:00 Helmet Cells Not Reportable 10/20/16 06:00 [place] Bodies Not Reportable 10/20/16 06:00 [place] Rings Not Reportable 10/20/16 06:00 [place] Cells Not Reportable 10/20/16 06:00 Bite Cells Not Reportable 10/20/16 06:00 Crenated Cell Not Reportable 10/20/16 06:00 Elliptocytes Rare 10/20/16 06:00 Acanthocytes (Spur) Not Reportable 10/20/16 06:00 Rouleaux Not Reportable 10/20/16 06:00 Hemoglobin C Crystals Not Reportable 10/20/16 06:00 Schistocytes Not Reportable 10/20/16 06:00 Malaria parasites Not Reportable 10/20/16 06:00 ESR 77 mm/Hr (0-20) 10/14/16 04:34 Pal Bodies Not Reportable 10/20/16 06:00 Haptoglobin <15 mg/dL (43-212) L 10/15/16 12:00 Hem Pathologist Commnt No 10/20/16 06:00 PT 28.9 Sec. (12.2-14.9) H 10/14/16 21:25 INR 2.71 (0.87-1.13) H 10/14/16 21:25 Fibrinogen 557 mg/dl (211-480) H 10/14/16 09:58 Lupus Anticoagulant see below H 10/14/16 03:00 LA PTT Baseline 55 sec (<=40) H 10/14/16 03:00 dRVVT Confirm Interp Negative (Negative) 10/14/16 03:00 POC ABG pH 7.463 (7.35-7.45) H 10/20/16 05:16 POC ABG pCO2 40.4 (35-45) 10/20/16 05:16 POC ABG pO2 157 (80-105) H 10/20/16 05:16 POC ABG HCO3 28.9 10/20/16 05:16 POC ABG Total CO2 30 10/20/16 05:16 POC ABG O2 Sat 99 10/20/16 05:16 POC ABG Base Excess 5 10/20/16 05:16 FiO2 35 % 10/20/16 05:16 Sodium 137 mmol/L (137-145) 10/20/16 05:00 Potassium 3.7 mmol/L (3.6-5.0) 10/20/16 05:00 Chloride 88.8 mmol/L (98-107) L 10/20/16 05:00 Carbon Dioxide 24 mmol/L (22-30) 10/20/16 05:00 Anion Gap 28 mmol/L 10/20/16 05:00 BUN 93 mg/dL (9-20) H 10/20/16 05:00 Creatinine 4.3 mg/dL (0.8-1.5) H 10/20/16 05:00 Estimated GFR 14 ml/min 10/20/16 05:00 BUN/Creatinine Ratio 21.62 % 10/20/16 05:00 Glucose 204 mg/dL (75-100) H 10/20/16 05:00 POC Glucose 172 (70-105) H 10/20/16 12:11 Lactic Acid 14.30 mmol/L (0.7-2.0) H* 10/18/16 09:15 Uric Acid 8.0 mg/dL (3.5-7.6) H 10/14/16 03:00 Calcium 5.2 mg/dL (8.4-10.2) L* 10/20/16 05:00 Phosphorus 6.30 mg/dL (2.5-4.5) H 10/19/16 06:00 Iron 146 ug/dL (49-181) 10/15/16 05:35 TIBC 166 mcg/dL (250-450) L 10/15/16 05:35 Ferritin 9562.0 ng/mL (13.0-400.0) H 10/15/16 05:35 Total Bilirubin 1.30 mg/dL (0.1-1.2) H 10/14/16 09:58 Direct Bilirubin 1.1 mg/dL (0-0.2) H 10/14/16 09:58 Indirect Bilirubin 0.2 mg/dL 10/14/16 09:58 AST 17 units/L (5-40) 10/13/16 10:14 ALT 24 units/L (7-56) 10/13/16 10:14 Alkaline Phosphatase 76 units/L (35-129) 10/13/16 10:14 Ammonia 32.0 umol/L (25-60) 10/19/16 14:15 Lactate Dehydrogenase 3871 units/L (91-180) H 10/15/16 05:35 Troponin T 0.079 ng/mL (0.00-0.029) H 10/13/16 10:14 C-Reactive Protein 40.40 mg/dL (0.00-1.30) H 10/14/16 12:52 NT-Pro-B Natriuret Pep > 33895 pg/mL (0-900) H 10/13/16 10:14 Serum Total Protein 5.6 g/dL (6.1-8.1) L 10/13/16 14:50 Total Protein 6.4 g/dL (6.3-8.2) 10/13/16 10:14 Albumin 2.2 g/dL (3.8-4.8) L 10/13/16 14:50 Albumin/Globulin Ratio 0.6 % 10/13/16 10:14 [id number] 0.5 g/dL (0.2-0.3) H 10/13/16 14:50 Bxlzq-0-Ok[place]jrssi 0.6 g/dL (0.5-0.9) 10/13/16 14:50 Beta Globulins 0.3 g/dL (0.2-0.5) 10/13/16 14:50 Gamma Globulins 1.7 g/dL (0.8-1.7) 10/13/16 14:50 Abnorm Protein Band 1 1.4 g/dL H 10/13/16 14:50 PEP Interpretation see below H 10/13/16 14:50 Triglycerides 119 mg/dL (2-149) 10/13/16 10:14 Cholesterol 71 mg/dL (50-199) 10/13/16 10:14 LDL Cholesterol Direct 41 mg/dL (50-130) L 10/13/16 10:14 HDL Cholesterol 7 mg/dL (40-59) L 10/13/16 10:14 Cholesterol/HDL Ratio 10.14 % 10/13/16 10:14 Lipase 21 units/L (13-60) 10/15/16 05:35 Vitamin B12 893.9 pg/mL (211-911) 10/14/16 03:00 TSH 0.526 mlU/mL (0.270-4.200) 10/19/16 14:15 Random Vancomycin 13.1 ug/mL (0-40.0) 10/19/16 05:00 XU Screen Negative (Negative) 10/13/16 14:50 Proteinase 3 (PR3) Ab <1.0 AI (<1.0) 10/13/16 14:50 Myeloperoxidase Ab <1.0 AI (<1.0) 10/13/16 14:50 Glomerular Base Mem IgG <1.0 AI (<1.0) 10/13/16 14:50 Complement C3 101 mg/dL (90-180) 10/13/16 14:50 Complement C4 16 mg/dL (16-47) 10/13/16 14:50 Hep Bs Antigen Non-reactive (Negative) 10/13/16 14:50 Hepatitis C Antibody Non-reactive (NonReactive) 10/13/16 14:50 HIV 1&2 Antibody Rapid Non react (Non React) 10/13/16 14:50 HIV P24 Antigen Non react (Non React) 10/13/16 14:50 Schistocytes Smear None seen 10/15/16 12:00 Flow Intrp 16+ Markers Scanned into med rec 10/14/16 11:30 Flow Cytometry Interp Scanned into med rec 10/14/16 11:30 Blood Type O POSITIVE 10/17/16 07:59 Antibody Screen TNR 10/17/16 07:59 MADIHA Antibody Screen Negative 10/17/16 07:59 Direct Antiglob Test Negative 10/14/16 03:00 ELAINE, Poly Interpret Negative 10/14/16 03:00 Crossmatch See Detail 10/17/16 07:59
[2016-10-20] MEDS: BENADRYL IV PRN (15:40)
[2016-10-20] MEDS: TYLENOL PR PRN (15:40)
[2016-10-21] MEDS: NOVOLOG SUB-Q SCH ×4 (00:53→18:09)
[2016-10-21] MEDS: D5/0.45NS 1,000 ML IV SCH (01:02)
[2016-10-21 04:54] LABS: Albumin 2.6 g/dL (3.9-5); Albumin/Globulin Ratio 1.1 %; BUN/Creatinine Ratio 22.14; Bilirubin,Total 2.7 mg/dL (0.1-1.2); Chloride 91.6 mmol/L (98-107); Total Protein 4.9 g/dL (6.3-8.2)
[2016-10-21 04:55] LABS: Calcium 6.2 mg/dL (8.4-10.2); Potassium 2.8 mmol/L (3.6-5.0)
[2016-10-21] MEDS ORDERED: POTASSIUM CHLORIDE FEEDTUBE ONE (05:00)
[2016-10-21] MEDS: CLEOCIN 900 MG/50 mL 900 MG/50 ML BAG IV SCH ×3 (05:05→20:51)
[2016-10-21 05:09] LABS: ISTAT Base Excess 5; ISTAT HCO3 28.9; ISTAT PCO2 40.8 (35-45); ISTAT PH 7.459 (7.35-7.45); ISTAT PO2 113 (80-105); ISTAT SO2 99; ISTAT TCO2 30
--- NOTE | 2016-10-21 08:30 | Progress Note ---
Assessment and Plan - Patient Problems (1) Sepsis Current Visit: Yes Status: Acute Qualifiers: Sepsis type: Streptococcus group B Qualified Code(s): A40.1 - Sepsis due to streptococcus, group B Plan to address problem: 1. Continue Vancomycin and Clindamycin. Therapeutic Vancomycin level. 2. JONATHAN, if feasible. Subjective Date of service: 10/21/16 Principal diagnosis: Sepsis Syndrome; MAHA; RAJESH; CHF Interval history: Remains intubated in ICU. Afebrile overnight. Objective - Exam Narrative Exam: intubated, FiO2 25% - Constitutional Vitals: Vital Signs Temp Pulse Resp BP Pulse Ox 97.6 F 75 18 133/83 100 10/21/16 07:55 10/21/16 08:23 10/21/16 06:30 10/21/16 08:09 10/21/16 08:23 Temperature -Last 24 Hours Temperature 97.6 F Temperature 98.7 F Temperature 98.4 F Temperature 97.6 F Temperature 98.9 F Temperature 98.3 F Temperature 98.3 F Temperature 99.6 F - EENT Eyes: no scleral icterus ENT: other (ET tube in place) - Respiratory Respiratory: bilateral: CTA, negative: rales, rhonchi - Cardiovascular Rhythm: regular (normal rate) Heart Sounds: Present: S1 & S2 Extremities: No edema Extremity abnormal: erythema (ecchymoses along both lower extremities) - Gastrointestinal General gastrointestinal: Present: soft, non-distended - Genitourinary Male genitourinary: scrotal edema - Integumentary Integumentary: warm, dry - Additional findings Additional findings: RIJ central/ right PICC without surrounding inflammation - Labs CBC & Chem 7: 10/21/16 10:30 10/21/16 03:53 Labs: Laboratory Results - last 24 hr 10/20/16 10/20/16 10/20/16 12:11 15:32 21:23 POC ABG pH POC ABG pCO2 POC ABG pO2 POC ABG HCO3 POC ABG Total CO2 POC ABG O2 Sat POC ABG Base Excess FiO2 Sodium Potassium Chloride Carbon Dioxide Anion Gap BUN Creatinine Estimated GFR BUN/Creatinine Ratio Glucose POC Glucose 172 H 216 H 271 H Calcium Total Bilirubin AST ALT Alkaline Phosphatase Total Protein Albumin Albumin/Globulin Ratio Random Vancomycin 10/20/16 10/21/16 10/21/16 23:49 03:53 03:53 POC ABG pH POC ABG pCO2 POC ABG pO2 POC ABG HCO3 POC ABG Total CO2 POC ABG O2 Sat POC ABG Base Excess FiO2 Sodium 136 L Potassium 2.8 L* D Chloride 91.6 L Carbon Dioxide 26 Anion Gap 21 BUN 62 H Creatinine 2.8 H Estimated GFR 23 BUN/Creatinine Ratio 22.14 Glucose 236 H POC Glucose 317 H Calcium 6.2 L D Total Bilirubin 2.70 H AST 73 H ALT 57 H Alkaline Phosphatase 158 H Total Protein 4.9 L Albumin 2.6 L Albumin/Globulin Ratio 1.1 Random Vancomycin 15.2 10/21/16 10/21/16 10/21/16 04:58 05:25 07:11 POC ABG pH 7.459 H POC ABG pCO2 40.8 POC ABG pO2 113 H POC ABG HCO3 28.9 POC ABG Total CO2 30 POC ABG O2 Sat 99 POC ABG Base Excess 5 FiO2 28 Sodium Potassium Chloride Carbon Dioxide Anion Gap BUN Creatinine Estimated GFR BUN/Creatinine Ratio Glucose POC Glucose 237 H 206 H Calcium Total Bilirubin AST ALT Alkaline Phosphatase Total Protein Albumin Albumin/Globulin Ratio Random Vancomycin Microbiology 10/16/16 21:15 Peripheral/Venous Blood Culture - Preliminary NO GROWTH AFTER 4 DAYS 10/16/16 20:30 Peripheral/Venous Blood Culture - Preliminary NO GROWTH AFTER 4 DAYS 10/16/16 21:00 Tracheal Aspirate Sputum Culture - Final Sara Albicans 10/14/16 16:15 Peripheral/Venous Blood Culture - Preliminary Beta Hemolytic Strep Group B 10/14/16 15:33 Peripheral/Venous Blood Culture - Preliminary Beta Hemolytic Strep Group B
[2016-10-21] MEDS: CORDARONE PO SCH ×2 (09:21→22:42)
[2016-10-21] MEDS: PEPCID PO SCH (09:22)
--- NOTE | 2016-10-21 09:42 | Progress Note ---
Assessment and Plan - Patient Problems (1) Acute respiratory failure Current Visit: Yes Status: Acute Qualifiers: Respiratory failure complication: hypoxia Qualified Code(s): J96.01 - Acute respiratory failure with hypoxia Plan to address problem: Currently on AC-VC 25/500/PEEP 5/28% ABG 7.459/40.8/113/28.9 VAP bundle addressed HOB>40, aspiration precautions CXR prn Daily SATs/SBTs Agitation management- intermittent medication Nutrition - at goal and is being tolerated No VTE pharmacoprophylaxis secondary to severe coagulopathy Stress ulcer prophylaxis- Famotidine (2) Septic shock Current Visit: Yes Status: Acute Plan to address problem: Secondary to Streptococcal bacteremia/pneumonia Transthoracic echo was negative for vegetations Continue vasopressor support- keep MAP>65 Antibiotics as per ID service (3) TTP (thrombotic thrombocytopenic purpura) Current Visit: Yes Status: Acute Plan to address problem: As per hematology. Avoid platelet transfusions Plasmapheresis Worsening thrombocytopenia. If platelets decrease below 15, monitor closely for spontaneous intracranial hemorrhage Avoid invasive procedures that may provoke mucosal bleeding Severe coagulopathy. Get CT head and may FFP transfusions (4) RAJESH (acute kidney injury) Current Visit: Yes Status: Acute Plan to address problem: On supportive HD Renal managing (5) Anemia Current Visit: Yes Status: Acute Qualifiers: Anemia type: unspecified type Iron deficiency anemia type: I Vitamin B12 deficiency anemia type: V Folate deficiency anemia type: F Bone marrow failure anemia type: B Hemolytic anemia type: H Other causes of anemia: O Qualified Code(s): D64.9 - Anemia, unspecified Plan to address problem: Monitor, supportive transfusions as needed. s/p 1 unit PRBC (6) Acute encephalopathy Current Visit: Yes Status: Acute Plan to address problem: Worse today. Will discontinue propofol and then re-assess neurological status. If he does not improve and his thrombocytopenia continues to worsen, get non contrast CT head to r/o spontaneous intracranial hemorrhage. Subjective Date of service: 10/21/16 Principal diagnosis: Sepsis Syndrome; MAHA; RAJESH; CHF Interval history: Patient admitted with * Acute metabolic encephalopathy * AFIB WITH RVR * beta hemolitic strep BACTERIMIA * Acute Respiratory failure with hypoxia * Pancytopenia [leukopenia, severe anemia, Worsening thrombocytopenia] * ?DIC * End-stage renal disease * secondary coagulopathy * Lactic acidosis * Probable TTP, HUS * persistent hypoglycemia * Acute systolic congestive heart failure EF around 30% * SEVERE SEPSIS * Today 10/21/2016 Critically ill, on mechanical ventilatory support- required orotracheal intubation 10/16/2016 On going need for vasopressor support- no patient ventilator dys-synchrony On amiodarone infusion for atrial fibrillation with RVR Receiving plasmaphersis- for thrombocytopenia that is worsening On antibiotics for Strep PNA Seen and examined, vitals, labs, records reviewed. Less responsive today Tolerating tube feedings Discussed on interdisciplinary rounds Objective - Exam Narrative Exam: GEN: Critically ill intubated but not sedated HEENT: ET tube in place No dys-synchrony CVS: irregular, NORMAL S1S2 LUNGS/CHEST: NORMAL CHEST EXPANSION B, GOOD AIR ENTRY B ABD: SOFT, POSITIVE BOWEL SOUNDS, NON DISTENDED, NO REBOUND OR GUARDING NEURO: CN 2-12 GROSSLY INTACT, he doesn't follow commands, sponatneous eye opening PSY: Unresponsive Vital Signs - 12hr 10/20/16 10/20/16 10/20/16 21:45 21:47 22:00 Temperature Pulse Rate 72 71 72 Respiratory 16 15 14 Rate Blood Pressure 149/87 149/87 148/85 O2 Sat by Pulse 100 100 100 Oximetry 10/20/16 10/20/16 10/20/16 22:15 22:30 22:45 Temperature Pulse Rate 72 72 72 Respiratory 18 13 19 Rate Blood Pressure 143/85 145/85 149/85 O2 Sat by Pulse 100 100 100 Oximetry 10/20/16 10/20/16 10/20/16 23:00 23:15 23:30 Temperature Pulse Rate 71 72 73 Respiratory 20 18 16 Rate Blood Pressure 140/82 137/80 142/85 O2 Sat by Pulse 100 100 100 Oximetry 10/20/16 10/20/16 10/21/16 23:45 23:46 00:00 Temperature 98.4 F Pulse Rate 71 72 Respiratory 19 9 L Rate Blood Pressure 133/81 128/80 O2 Sat by Pulse 100 99 Oximetry 10/21/16 10/21/16 10/21/16 00:15 00:19 00:30 Temperature Pulse Rate 71 73 72 Respiratory 11 L 22 Rate Blood Pressure 115/73 137/80 131/85 O2 Sat by Pulse 100 100 100 Oximetry 10/21/16 10/21/16 10/21/16 00:45 01:00 01:15 Temperature Pulse Rate 71 72 72 Respiratory 21 19 20 Rate Blood Pressure 126/82 133/82 140/87 O2 Sat by Pulse 100 100 100 Oximetry 10/21/16 10/21/16 10/21/16 01:30 01:45 02:00 Temperature Pulse Rate 73 73 74 Respiratory 21 19 21 Rate Blood Pressure 146/86 138/85 153/91 O2 Sat by Pulse 100 100 100 Oximetry 10/21/16 10/21/16 10/21/16 02:15 02:30 02:45 Temperature Pulse Rate 73 74 76 Respiratory 19 21 20 Rate Blood Pressure 140/84 143/85 163/92 O2 Sat by Pulse 100 100 100 Oximetry 10/21/16 10/21/16 10/21/16 03:00 03:15 03:30 Temperature Pulse Rate 73 72 73 Respiratory 22 18 19 Rate Blood Pressure 154/85 123/73 134/79 O2 Sat by Pulse 100 99 99 Oximetry 10/21/16 10/21/16 10/21/16 03:45 04:00 04:15 Temperature 98.7 F Pulse Rate 75 74 74 Respiratory 23 19 20 Rate Blood Pressure 145/90 148/87 144/83 O2 Sat by Pulse 100 98 100 Oximetry 10/21/16 10/21/16 10/21/16 04:30 04:45 05:00 Temperature Pulse Rate 73 75 74 Respiratory 20 22 20 Rate Blood Pressure 132/77 139/83 137/83 O2 Sat by Pulse 100 100 100 Oximetry 10/21/16 10/21/16 10/21/16 05:05 05:15 05:30 Temperature Pulse Rate 74 74 71 Respiratory 21 21 Rate Blood Pressure 139/83 143/88 133/85 O2 Sat by Pulse 100 100 100 Oximetry 10/21/16 10/21/16 10/21/16 05:45 06:00 06:16 Temperature Pulse Rate 70 69 72 Respiratory 18 20 20 Rate Blood Pressure 131/83 120/76 147/87 O2 Sat by Pulse 97 95 100 Oximetry 10/21/16 10/21/16 10/21/16 06:30 07:55 08:09 Temperature 97.6 F Pulse Rate 70 72 Respiratory 18 Rate Blood Pressure 128/78 133/83 O2 Sat by Pulse 100 100 Oximetry 10/21/16 08:23 Temperature Pulse Rate 75 Respiratory Rate Blood Pressure O2 Sat by Pulse 100 Oximetry Constitutional: no acute distress, lethargic Eyes: non-icteric ENT: oropharynx dry Neck: supple, no lymphadenopathy Effort: normal, mildly labored Ascultation: Bilateral: clear, diminished breath sounds Cardiovascular: irregular rhythm Gastrointestinal: normoactive bowel sounds, soft, non-distended Integumentary: erythema (ecchymosis/purpura) Extremities: no cyanosis, pulses normal, no ischemia or petechiae, edema Neurologic: non-focal exam (grossly), pupils equal and round, unable to assess Psychiatric: other (unable to assess) CBC and BMP: 10/21/16 10:30 10/21/16 03:53 ABG, PT/INR, D-dimer: ABG POC ABG pH 7.459 (7.35-7.45) H 10/21/16 04:58 POC ABG pCO2 40.8 (35-45) 10/21/16 04:58 POC ABG pO2 113 (80-105) H 10/21/16 04:58 POC ABG HCO3 28.9 10/21/16 04:58 POC ABG Total CO2 30 10/21/16 04:58 POC ABG O2 Sat 99 10/21/16 04:58 PT/INR, D-dimer PT 28.9 Sec. (12.2-14.9) H 10/14/16 21:25 INR 2.71 (0.87-1.13) H 10/14/16 21:25 Abnormal lab findings: Abnormal Labs 10/13/16 10/13/16 10/13/16 14:50 21:40 22:05 WBC RBC Hgb Hct MCV MCHC RDW Plt Count Seg Neuts % (Manual) Lymphocytes % (Manual) Nucleated RBC % Seg Neutrophils # Man Lymphocytes # (Manual) Haptoglobin PT INR Fibrinogen Lupus Anticoagulant LA PTT Baseline POC ABG pH POC ABG pCO2 POC ABG pO2 Sodium Potassium Chloride Carbon Dioxide BUN Creatinine Glucose POC Glucose 52 L 43 L Lactic Acid Uric Acid Calcium Phosphorus Iron TIBC Ferritin Total Bilirubin Direct Bilirubin AST ALT Alkaline Phosphatase Lactate Dehydrogenase C-Reactive Protein Serum Total Protein 5.6 L Total Protein Albumin 2.2 L Tkgpo-9-Ifrwqooga 0.5 H Abnorm Protein Band 1 1.4 H PEP Interpretation see below H Crossmatch 10/13/16 10/14/16 10/14/16 23:18 03:00 03:00 WBC RBC Hgb Hct MCV MCHC RDW Plt Count Seg Neuts % (Manual) Lymphocytes % (Manual) Nucleated RBC % Seg Neutrophils # Man Lymphocytes # (Manual) Haptoglobin PT INR Fibrinogen Lupus Anticoagulant see below H LA PTT Baseline 55 H POC ABG pH POC ABG pCO2 POC ABG pO2 Sodium Potassium Chloride Carbon Dioxide BUN Creatinine Glucose POC Glucose 113 H Lactic Acid Uric Acid Calcium Phosphorus Iron TIBC Ferritin Total Bilirubin Direct Bilirubin AST ALT Alkaline Phosphatase Lactate Dehydrogenase 406 H C-Reactive Protein Serum Total Protein Total Protein Albumin Yzses-1-Jtbzhqrfj Abnorm Protein Band 1 PEP Interpretation Crossmatch 10/14/16 10/14/16 10/14/16 03:00 03:00 04:34 WBC 1.3 L* RBC 2.33 L Hgb 7.3 L Hct 21.7 L MCV MCHC RDW 19.8 H Plt Count 99 L Seg Neuts % (Manual) Lymphocytes % (Manual) 3.0 L Nucleated RBC % Seg Neutrophils # Man 0.9 L Lymphocytes # (Manual) 0.0 L Haptoglobin PT INR Fibrinogen Lupus Anticoagulant LA PTT Baseline POC ABG pH POC ABG pCO2 POC ABG pO2 Sodium Potassium Chloride Carbon Dioxide 18 L BUN 73 H Creatinine 9.8 H Glucose 59 L POC Glucose Lactic Acid Uric Acid 8.0 H Calcium 8.2 L Phosphorus 6.60 H Iron 13 L TIBC 160 L Ferritin Total Bilirubin Direct Bilirubin AST ALT Alkaline Phosphatase Lactate Dehydrogenase C-Reactive Protein Serum Total Protein Total Protein Albumin Ymmjd-7-Dvfajbiiw Abnorm Protein Band 1 PEP Interpretation Crossmatch 10/14/16 10/14/16 10/14/16 05:27 06:29 07:34 WBC RBC Hgb Hct MCV MCHC RDW Plt Count Seg Neuts % (Manual) Lymphocytes % (Manual) Nucleated RBC % Seg Neutrophils # Man Lymphocytes # (Manual) Haptoglobin PT INR Fibrinogen Lupus Anticoagulant LA PTT Baseline POC ABG pH POC ABG pCO2 POC ABG pO2 Sodium Potassium Chloride Carbon Dioxide BUN Creatinine Glucose POC Glucose < 40 L 63 L < 40 L Lactic Acid Uric Acid Calcium Phosphorus Iron TIBC Ferritin Total Bilirubin Direct Bilirubin AST ALT Alkaline Phosphatase Lactate Dehydrogenase C-Reactive Protein Serum Total Protein Total Protein Albumin Ylfhb-6-Bvzwntcbk Abnorm Protein Band 1 PEP Interpretation Crossmatch 10/14/16 10/14/16 10/14/16 09:58 09:58 09:58 WBC RBC Hgb Hct MCV MCHC RDW Plt Count Seg Neuts % (Manual) Lymphocytes % (Manual) Nucleated RBC % Seg Neutrophils # Man Lymphocytes # (Manual) Haptoglobin 218 H PT INR Fibrinogen 557 H Lupus Anticoagulant LA PTT Baseline POC ABG pH POC ABG pCO2 POC ABG pO2 Sodium Potassium Chloride Carbon Dioxide BUN Creatinine Glucose POC Glucose Lactic Acid Uric Acid Calcium Phosphorus Iron TIBC Ferritin Total Bilirubin 1.30 H Direct Bilirubin 1.1 H AST ALT Alkaline Phosphatase Lactate Dehydrogenase C-Reactive Protein Serum Total Protein Total Protein Albumin Mnvre-5-Whustnfyz Abnorm Protein Band 1 PEP Interpretation Crossmatch 10/14/16 10/14/16 10/14/16 10:57 11:15 12:52 WBC RBC Hgb Hct MCV MCHC RDW Plt Count Seg Neuts % (Manual) Lymphocytes % (Manual) Nucleated RBC % Seg Neutrophils # Man Lymphocytes # (Manual) Haptoglobin PT INR Fibrinogen Lupus Anticoagulant LA PTT Baseline POC ABG pH POC ABG pCO2 POC ABG pO2 Sodium Potassium Chloride Carbon Dioxide BUN Creatinine Glucose POC Glucose < 40 L < 40 L Lactic Acid 9.60 H* Uric Acid Calcium Phosphorus Iron TIBC Ferritin Total Bilirubin Direct Bilirubin AST ALT Alkaline Phosphatase Lactate Dehydrogenase C-Reactive Protein Serum Total Protein Total Protein Albumin Hjlnk-2-Vtijyxjmm Abnorm Protein Band 1 PEP Interpretation Crossmatch 10/14/16 10/14/16 10/14/16 12:52 13:17 14:12 WBC RBC Hgb Hct MCV MCHC RDW Plt Count Seg Neuts % (Manual) Lymphocytes % (Manual) Nucleated RBC % Seg Neutrophils # Man Lymphocytes # (Manual) Haptoglobin PT INR Fibrinogen Lupus Anticoagulant LA PTT Baseline POC ABG pH POC ABG pCO2 POC ABG pO2 Sodium Potassium Chloride Carbon Dioxide BUN Creatinine Glucose POC Glucose < 40 L < 40 L Lactic Acid Uric Acid Calcium Phosphorus Iron TIBC Ferritin Total Bilirubin Direct Bilirubin AST ALT Alkaline Phosphatase Lactate Dehydrogenase C-Reactive Protein 40.40 H Serum Total Protein Total Protein Albumin Fajir-1-Zltqpdsrr Abnorm Protein Band 1 PEP Interpretation Crossmatch 10/14/16 10/14/16 10/14/16 15:02 15:33 15:33 WBC RBC Hgb Hct MCV MCHC RDW Plt Count Seg Neuts % (Manual) Lymphocytes % (Manual) Nucleated RBC % Seg Neutrophils # Man Lymphocytes # (Manual) Haptoglobin PT INR Fibrinogen Lupus Anticoagulant LA PTT Baseline POC ABG pH POC ABG pCO2 POC ABG pO2 Sodium Potassium Chloride Carbon Dioxide BUN Creatinine Glucose 19 L* POC Glucose < 40 L Lactic Acid 11.60 H* Uric Acid Calcium Phosphorus Iron TIBC Ferritin Total Bilirubin Direct Bilirubin AST ALT Alkaline Phosphatase Lactate Dehydrogenase C-Reactive Protein Serum Total Protein Total Protein Albumin Avpkq-1-Psvbinftx Abnorm Protein Band 1 PEP Interpretation Crossmatch 10/14/16 10/14/16 10/14/16 17:14 18:03 21:25 WBC RBC Hgb Hct MCV MCHC RDW Plt Count Seg Neuts % (Manual) Lymphocytes % (Manual) Nucleated RBC % Seg Neutrophils # Man Lymphocytes # (Manual) Haptoglobin PT 28.9 H INR 2.71 H Fibrinogen Lupus Anticoagulant LA PTT Baseline POC ABG pH POC ABG pCO2 POC ABG pO2 Sodium Potassium Chloride Carbon Dioxide BUN Creatinine Glucose POC Glucose < 40 L 57 L Lactic Acid Uric Acid Calcium Phosphorus Iron TIBC Ferritin Total Bilirubin Direct Bilirubin AST ALT Alkaline Phosphatase Lactate Dehydrogenase C-Reactive Protein Serum Total Protein Total Protein Albumin Wtiti-0-Tjjcoaoox Abnorm Protein Band 1 PEP Interpretation Crossmatch 10/15/16 10/15/16 10/15/16 05:32 05:35 05:35 WBC RBC 2.62 L Hgb 8.1 L Hct 25.8 L MCV 98 H D MCHC 31 L RDW 21.2 H Plt Count 61 L Seg Neuts % (Manual) 27.0 L Lymphocytes % (Manual) 10.0 L Nucleated RBC % 2.0 H Seg Neutrophils # Man Lymphocytes # (Manual) 0.8 L Haptoglobin PT INR Fibrinogen Lupus Anticoagulant LA PTT Baseline POC ABG pH POC ABG pCO2 POC ABG pO2 Sodium Potassium Chloride Carbon Dioxide BUN Creatinine Glucose POC Glucose < 40 L Lactic Acid Uric Acid Calcium Phosphorus Iron TIBC Ferritin Total Bilirubin Direct Bilirubin AST ALT Alkaline Phosphatase Lactate Dehydrogenase 3871 H C-Reactive Protein Serum Total Protein Total Protein Albumin Mzxal-8-Brfpgvepr Abnorm Protein Band 1 PEP Interpretation Crossmatch 10/15/16 10/15/16 10/15/16 05:35 05:35 05:35 WBC RBC Hgb Hct MCV MCHC RDW Plt Count Seg Neuts % (Manual) Lymphocytes % (Manual) Nucleated RBC % Seg Neutrophils # Man Lymphocytes # (Manual) Haptoglobin PT INR Fibrinogen Lupus Anticoagulant LA PTT Baseline POC ABG pH POC ABG pCO2 POC ABG pO2 Sodium 136 L Potassium 5.3 H D Chloride 91.4 L Carbon Dioxide 6 L* D BUN 57 H Creatinine 7.1 H Glucose 11 L* POC Glucose Lactic Acid 13.60 H* Uric Acid Calcium 7.7 L Phosphorus 10.10 H D Iron TIBC 166 L Ferritin 9562.0 H Total Bilirubin Direct Bilirubin AST ALT Alkaline Phosphatase Lactate Dehydrogenase C-Reactive Protein Serum Total Protein Total Protein Albumin Ekgzs-5-Tnkuwpvyu Abnorm Protein Band 1 PEP Interpretation Crossmatch 10/15/16 10/15/16 10/15/16 05:51 06:22 06:52 WBC RBC Hgb Hct MCV MCHC RDW Plt Count Seg Neuts % (Manual) Lymphocytes % (Manual) Nucleated RBC % Seg Neutrophils # Man Lymphocytes # (Manual) Haptoglobin PT INR Fibrinogen Lupus Anticoagulant LA PTT Baseline POC ABG pH 7.189 L POC ABG pCO2 28.9 L POC ABG pO2 Sodium Potassium Chloride Carbon Dioxide BUN Creatinine Glucose POC Glucose 59 L 111 H Lactic Acid Uric Acid Calcium Phosphorus Iron TIBC Ferritin Total Bilirubin Direct Bilirubin AST ALT Alkaline Phosphatase Lactate Dehydrogenase C-Reactive Protein Serum Total Protein Total Protein Albumin Govwh-9-Fjibmlikh Abnorm Protein Band 1 PEP Interpretation Crossmatch 10/15/16 10/15/16 10/15/16 08:00 09:57 11:42 WBC RBC Hgb Hct MCV MCHC RDW Plt Count Seg Neuts % (Manual) Lymphocytes % (Manual) Nucleated RBC % Seg Neutrophils # Man Lymphocytes # (Manual) Haptoglobin PT INR Fibrinogen Lupus Anticoagulant LA PTT Baseline POC ABG pH POC ABG pCO2 POC ABG pO2 Sodium Potassium Chloride Carbon Dioxide BUN Creatinine Glucose POC Glucose 63 L 143 H 203 H Lactic Acid Uric Acid Calcium Phosphorus Iron TIBC Ferritin Total Bilirubin Direct Bilirubin AST ALT Alkaline Phosphatase Lactate Dehydrogenase C-Reactive Protein Serum Total Protein Total Protein Albumin Iwqnn-1-Hwuoslcko Abnorm Protein Band 1 PEP Interpretation Crossmatch 10/15/16 10/15/16 10/15/16 12:00 12:00 13:00 WBC RBC Hgb Hct MCV MCHC RDW Plt Count Seg Neuts % (Manual) Lymphocytes % (Manual) Nucleated RBC % Seg Neutrophils # Man Lymphocytes # (Manual) Haptoglobin <15 L PT INR Fibrinogen Lupus Anticoagulant LA PTT Baseline POC ABG pH POC ABG pCO2 POC ABG pO2 Sodium Potassium Chloride Carbon Dioxide BUN Creatinine Glucose POC Glucose 136 H Lactic Acid 16.30 H* Uric Acid Calcium Phosphorus Iron TIBC Ferritin Total Bilirubin Direct Bilirubin AST ALT Alkaline Phosphatase Lactate Dehydrogenase C-Reactive Protein Serum Total Protein Total Protein Albumin Nzils-2-Gedibzjem Abnorm Protein Band 1 PEP Interpretation Crossmatch 10/15/16 10/15/16 10/15/16 14:06 15:15 16:23 WBC RBC Hgb Hct MCV MCHC RDW Plt Count Seg Neuts % (Manual) Lymphocytes % (Manual) Nucleated RBC % Seg Neutrophils # Man Lymphocytes # (Manual) Haptoglobin PT INR Fibrinogen Lupus Anticoagulant LA PTT Baseline POC ABG pH POC ABG pCO2 POC ABG pO2 Sodium Potassium Chloride Carbon Dioxide BUN Creatinine Glucose POC Glucose 132 H 64 L Lactic Acid 20.40 H* Uric Acid Calcium Phosphorus Iron TIBC Ferritin Total Bilirubin Direct Bilirubin AST ALT Alkaline Phosphatase Lactate Dehydrogenase C-Reactive Protein Serum Total Protein Total Protein Albumin Cgdth-9-Clhuksktm Abnorm Protein Band 1 PEP Interpretation Crossmatch 10/15/16 10/15/16 10/15/16 16:40 17:00 17:10 WBC RBC Hgb Hct MCV MCHC RDW Plt Count Seg Neuts % (Manual) Lymphocytes % (Manual) Nucleated RBC % Seg Neutrophils # Man Lymphocytes # (Manual) Haptoglobin PT INR Fibrinogen Lupus Anticoagulant LA PTT Baseline POC ABG pH 7.323 L POC ABG pCO2 25.8 L POC ABG pO2 135 H Sodium Potassium Chloride Carbon Dioxide BUN Creatinine Glucose POC Glucose 159 H Lactic Acid 20.20 H* Uric Acid Calcium Phosphorus Iron TIBC Ferritin Total Bilirubin Direct Bilirubin AST ALT Alkaline Phosphatase Lactate Dehydrogenase C-Reactive Protein Serum Total Protein Total Protein Albumin Atydj-8-Eanjbqjdv Abnorm Protein Band 1 PEP Interpretation Crossmatch 10/15/16 10/15/16 10/15/16 17:46 17:53 18:45 WBC RBC Hgb Hct MCV MCHC RDW Plt Count Seg Neuts % (Manual) Lymphocytes % (Manual) Nucleated RBC % Seg Neutrophils # Man Lymphocytes # (Manual) Haptoglobin PT INR Fibrinogen Lupus Anticoagulant LA PTT Baseline POC ABG pH POC ABG pCO2 POC ABG pO2 Sodium Potassium Chloride Carbon Dioxide BUN Creatinine Glucose POC Glucose 126 H 143 H Lactic Acid 21.40 H* Uric Acid Calcium Phosphorus Iron TIBC Ferritin Total Bilirubin Direct Bilirubin AST ALT Alkaline Phosphatase Lactate Dehydrogenase C-Reactive Protein Serum Total Protein Total Protein Albumin Qvjas-6-Uyqbmjzit Abnorm Protein Band 1 PEP Interpretation Crossmatch 10/15/16 10/15/16 10/16/16 20:03 22:59 00:06 WBC RBC Hgb Hct MCV MCHC RDW Plt Count Seg Neuts % (Manual) Lymphocytes % (Manual) Nucleated RBC % Seg Neutrophils # Man Lymphocytes # (Manual) Haptoglobin PT INR Fibrinogen Lupus Anticoagulant LA PTT Baseline POC ABG pH POC ABG pCO2 POC ABG pO2 Sodium Potassium Chloride Carbon Dioxide BUN Creatinine Glucose POC Glucose 66 L 53 L 126 H Lactic Acid Uric Acid Calcium Phosphorus Iron TIBC Ferritin Total Bilirubin Direct Bilirubin AST ALT Alkaline Phosphatase Lactate Dehydrogenase C-Reactive Protein Serum Total Protein Total Protein Albumin Bgews-1-Bnltxgczc Abnorm Protein Band 1 PEP Interpretation Crossmatch 10/16/16 10/16/16 10/16/16 01:03 03:55 04:00 WBC RBC Hgb Hct MCV MCHC RDW Plt Count Seg Neuts % (Manual) Lymphocytes % (Manual) Nucleated RBC % Seg Neutrophils # Man Lymphocytes # (Manual) Haptoglobin PT INR Fibrinogen Lupus Anticoagulant LA PTT Baseline POC ABG pH POC ABG pCO2 POC ABG pO2 Sodium Potassium Chloride Carbon Dioxide BUN Creatinine Glucose POC Glucose 107 H 260 H Lactic Acid 18.00 H* Uric Acid Calcium Phosphorus Iron TIBC Ferritin Total Bilirubin Direct Bilirubin AST ALT Alkaline Phosphatase Lactate Dehydrogenase C-Reactive Protein Serum Total Protein Total Protein Albumin Agmuf-8-Jzviebqeg Abnorm Protein Band 1 PEP Interpretation Crossmatch 10/16/16 10/16/16 10/16/16 04:03 07:58 08:34 WBC RBC Hgb Hct MCV MCHC RDW Plt Count Seg Neuts % (Manual) Lymphocytes % (Manual) Nucleated RBC % Seg Neutrophils # Man Lymphocytes # (Manual) Haptoglobin PT INR Fibrinogen Lupus Anticoagulant LA PTT Baseline POC ABG pH 7.527 H POC ABG pCO2 32.9 L POC ABG pO2 119 H Sodium Potassium Chloride Carbon Dioxide BUN Creatinine Glucose POC Glucose 120 H 66 L Lactic Acid Uric Acid Calcium Phosphorus Iron TIBC Ferritin Total Bilirubin Direct Bilirubin AST ALT Alkaline Phosphatase Lactate Dehydrogenase C-Reactive Protein Serum Total Protein Total Protein Albumin Wanev-7-Ydmaajwuh Abnorm Protein Band 1 PEP Interpretation Crossmatch 10/16/16 10/16/16 10/16/16 09:13 10:06 10:57 WBC RBC Hgb Hct MCV MCHC RDW Plt Count Seg Neuts % (Manual) Lymphocytes % (Manual) Nucleated RBC % Seg Neutrophils # Man Lymphocytes # (Manual) Haptoglobin PT INR Fibrinogen Lupus Anticoagulant LA PTT Baseline POC ABG pH POC ABG pCO2 POC ABG pO2 Sodium Potassium Chloride Carbon Dioxide BUN Creatinine Glucose POC Glucose 147 H 137 H 140 H Lactic Acid Uric Acid Calcium Phosphorus Iron TIBC Ferritin Total Bilirubin Direct Bilirubin AST ALT Alkaline Phosphatase Lactate Dehydrogenase C-Reactive Protein Serum Total Protein Total Protein Albumin Pyqkx-0-Phjvuacnp Abnorm Protein Band 1 PEP Interpretation Crossmatch 10/16/16 10/16/16 10/16/16 11:15 11:15 11:15 WBC 25.8 H RBC 2.30 L Hgb 7.0 L Hct 22.3 L MCV 97 H MCHC 31 L RDW 21.2 H Plt Count 42 L Seg Neuts % (Manual) Lymphocytes % (Manual) 3.0 L Nucleated RBC % 2.0 H Seg Neutrophils # Man 11.1 H Lymphocytes # (Manual) 0.8 L Haptoglobin PT INR Fibrinogen Lupus Anticoagulant LA PTT Baseline POC ABG pH POC ABG pCO2 POC ABG pO2 Sodium Potassium Chloride 81.7 L Carbon Dioxide 13 L D BUN 61 H Creatinine 6.2 H Glucose 171 H POC Glucose Lactic Acid 22.70 H* Uric Acid Calcium 7.1 L Phosphorus 9.10 H Iron TIBC Ferritin Total Bilirubin Direct Bilirubin AST ALT Alkaline Phosphatase Lactate Dehydrogenase C-Reactive Protein Serum Total Protein Total Protein Albumin Pzqop-2-Liueikokq Abnorm Protein Band 1 PEP Interpretation Crossmatch 10/16/16 10/16/16 10/16/16 15:10 15:50 18:11 WBC RBC Hgb Hct MCV MCHC RDW Plt Count Seg Neuts % (Manual) Lymphocytes % (Manual) Nucleated RBC % Seg Neutrophils # Man Lymphocytes # (Manual) Haptoglobin PT INR Fibrinogen Lupus Anticoagulant LA PTT Baseline POC ABG pH POC ABG pCO2 POC ABG pO2 Sodium Potassium Chloride Carbon Dioxide BUN Creatinine Glucose POC Glucose 47 L 164 H 58 L Lactic Acid Uric Acid Calcium Phosphorus Iron TIBC Ferritin Total Bilirubin Direct Bilirubin AST ALT Alkaline Phosphatase Lactate Dehydrogenase C-Reactive Protein Serum Total Protein Total Protein Albumin Cfkah-9-Wjlvksdma Abnorm Protein Band 1 PEP Interpretation Crossmatch 10/16/16 10/16/16 10/17/16 18:26 21:06 00:06 WBC RBC Hgb Hct MCV MCHC RDW Plt Count Seg Neuts % (Manual) Lymphocytes % (Manual) Nucleated RBC % Seg Neutrophils # Man Lymphocytes # (Manual) Haptoglobin PT INR Fibrinogen Lupus Anticoagulant LA PTT Baseline POC ABG pH POC ABG pCO2 POC ABG pO2 489 H Sodium Potassium Chloride Carbon Dioxide BUN Creatinine Glucose POC Glucose 52 L 120 H Lactic Acid Uric Acid Calcium Phosphorus Iron TIBC Ferritin Total Bilirubin Direct Bilirubin AST ALT Alkaline Phosphatase Lactate Dehydrogenase C-Reactive Protein Serum Total Protein Total Protein Albumin Mfjuj-4-Qdxbzgzfn Abnorm Protein Band 1 PEP Interpretation Crossmatch 10/17/16 10/17/16 10/17/16 04:55 04:55 05:04 WBC 25.5 H RBC 2.23 L Hgb 6.6 L Hct 21.2 L MCV 95 H MCHC 31 L RDW 20.5 H Plt Count 35 L Seg Neuts % (Manual) 79.0 H Lymphocytes % (Manual) 0 L Nucleated RBC % Seg Neutrophils # Man 20.1 H Lymphocytes # (Manual) 0.0 L Haptoglobin PT INR Fibrinogen Lupus Anticoagulant LA PTT Baseline POC ABG pH POC ABG pCO2 27.2 L POC ABG pO2 162 H Sodium Potassium Chloride 91.5 L Carbon Dioxide 16 L BUN 45 H Creatinine 4.5 H Glucose 103 H POC Glucose Lactic Acid Uric Acid Calcium 6.9 L Phosphorus 5.80 H D Iron TIBC Ferritin Total Bilirubin Direct Bilirubin AST ALT Alkaline Phosphatase Lactate Dehydrogenase C-Reactive Protein Serum Total Protein Total Protein Albumin Fbtnh-3-Fquhtyuqp Abnorm Protein Band 1 PEP Interpretation Crossmatch 10/17/16 10/17/16 10/17/16 07:59 09:04 10:04 WBC RBC Hgb Hct MCV MCHC RDW Plt Count Seg Neuts % (Manual) Lymphocytes % (Manual) Nucleated RBC % Seg Neutrophils # Man Lymphocytes # (Manual) Haptoglobin PT INR Fibrinogen Lupus Anticoagulant LA PTT Baseline POC ABG pH POC ABG pCO2 POC ABG pO2 Sodium Potassium Chloride Carbon Dioxide BUN Creatinine Glucose POC Glucose 65 L 118 H Lactic Acid Uric Acid Calcium Phosphorus Iron TIBC Ferritin Total Bilirubin Direct Bilirubin AST ALT Alkaline Phosphatase Lactate Dehydrogenase C-Reactive Protein Serum Total Protein Total Protein Albumin Dbppi-1-Lwnkpabjm Abnorm Protein Band 1 PEP Interpretation Crossmatch See Detail 10/17/16 10/17/16 10/17/16 11:52 13:08 15:42 WBC RBC Hgb Hct MCV MCHC RDW Plt Count Seg Neuts % (Manual) Lymphocytes % (Manual) Nucleated RBC % Seg Neutrophils # Man Lymphocytes # (Manual) Haptoglobin PT INR Fibrinogen Lupus Anticoagulant LA PTT Baseline POC ABG pH POC ABG pCO2 POC ABG pO2 Sodium Potassium Chloride Carbon Dioxide BUN Creatinine Glucose POC Glucose 125 H 106 H 55 L Lactic Acid Uric Acid Calcium Phosphorus Iron TIBC Ferritin Total Bilirubin Direct Bilirubin AST ALT Alkaline Phosphatase Lactate Dehydrogenase C-Reactive Protein Serum Total Protein Total Protein Albumin Pvhnd-2-Obrhjaxju Abnorm Protein Band 1 PEP Interpretation Crossmatch 10/17/16 10/17/16 10/17/16 17:39 20:37 21:02 WBC RBC Hgb Hct MCV MCHC RDW Plt Count Seg Neuts % (Manual) Lymphocytes % (Manual) Nucleated RBC % Seg Neutrophils # Man Lymphocytes # (Manual) Haptoglobin PT INR Fibrinogen Lupus Anticoagulant LA PTT Baseline POC ABG pH POC ABG pCO2 28.2 L POC ABG pO2 Sodium Potassium Chloride Carbon Dioxide BUN Creatinine Glucose POC Glucose < 40 L 106 H Lactic Acid Uric Acid Calcium Phosphorus Iron TIBC Ferritin Total Bilirubin Direct Bilirubin AST ALT Alkaline Phosphatase Lactate Dehydrogenase C-Reactive Protein Serum Total Protein Total Protein Albumin Ejuse-3-Ycfkcyitn Abnorm Protein Band 1 PEP Interpretation Crossmatch 10/17/16 10/17/16 10/18/16 22:18 23:14 00:28 WBC RBC Hgb Hct MCV MCHC RDW Plt Count Seg Neuts % (Manual) Lymphocytes % (Manual) Nucleated RBC % Seg Neutrophils # Man Lymphocytes # (Manual) Haptoglobin PT INR Fibrinogen Lupus Anticoagulant LA PTT Baseline POC ABG pH POC ABG pCO2 POC ABG pO2 Sodium Potassium Chloride Carbon Dioxide BUN Creatinine Glucose POC Glucose 111 H 118 H 112 H Lactic Acid Uric Acid Calcium Phosphorus Iron TIBC Ferritin Total Bilirubin Direct Bilirubin AST ALT Alkaline Phosphatase Lactate Dehydrogenase C-Reactive Protein Serum Total Protein Total Protein Albumin Xbgwz-9-Bkpfouwln Abnorm Protein Band 1 PEP Interpretation Crossmatch 10/18/16 10/18/16 10/18/16 05:00 05:00 05:15 WBC 27.3 H RBC 2.75 L Hgb 7.9 L Hct 25.3 L MCV MCHC 31 L RDW 20.7 H Plt Count 31 L Seg Neuts % (Manual) 87.0 H Lymphocytes % (Manual) 1.0 L Nucleated RBC % 1.0 H Seg Neutrophils # Man 23.8 H Lymphocytes # (Manual) 0.3 L Haptoglobin PT INR Fibrinogen Lupus Anticoagulant LA PTT Baseline POC ABG pH 7.466 H POC ABG pCO2 25.1 L POC ABG pO2 Sodium Potassium Chloride 88.7 L Carbon Dioxide 18 L BUN 66 H Creatinine 4.7 H Glucose POC Glucose Lactic Acid Uric Acid Calcium 6.1 L Phosphorus 7.30 H D Iron TIBC Ferritin Total Bilirubin Direct Bilirubin AST ALT Alkaline Phosphatase Lactate Dehydrogenase C-Reactive Protein Serum Total Protein Total Protein Albumin Skybd-4-Hrrjftbxg Abnorm Protein Band 1 PEP Interpretation Crossmatch 10/18/16 10/18/16 10/18/16 07:15 07:44 09:07 WBC RBC Hgb Hct MCV MCHC RDW Plt Count Seg Neuts % (Manual) Lymphocytes % (Manual) Nucleated RBC % Seg Neutrophils # Man Lymphocytes # (Manual) Haptoglobin PT INR Fibrinogen Lupus Anticoagulant LA PTT Baseline POC ABG pH POC ABG pCO2 POC ABG pO2 Sodium Potassium Chloride Carbon Dioxide BUN Creatinine Glucose POC Glucose 64 L 156 H 117 H Lactic Acid Uric Acid Calcium Phosphorus Iron TIBC Ferritin Total Bilirubin Direct Bilirubin AST ALT Alkaline Phosphatase Lactate Dehydrogenase C-Reactive Protein Serum Total Protein Total Protein Albumin Jmtfv-3-Eauvinsec Abnorm Protein Band 1 PEP Interpretation Crossmatch 10/18/16 10/18/16 10/18/16 09:15 14:00 18:21 WBC RBC Hgb Hct MCV MCHC RDW Plt Count Seg Neuts % (Manual) Lymphocytes % (Manual) Nucleated RBC % Seg Neutrophils # Man Lymphocytes # (Manual) Haptoglobin PT INR Fibrinogen Lupus Anticoagulant LA PTT Baseline POC ABG pH POC ABG pCO2 POC ABG pO2 Sodium Potassium Chloride Carbon Dioxide BUN Creatinine Glucose POC Glucose 106 H 112 H Lactic Acid 14.30 H* Uric Acid Calcium Phosphorus Iron TIBC Ferritin Total Bilirubin Direct Bilirubin AST ALT Alkaline Phosphatase Lactate Dehydrogenase C-Reactive Protein Serum Total Protein Total Protein Albumin Dsuwp-6-Tbjtbfkgt Abnorm Protein Band 1 PEP Interpretation Crossmatch 10/18/16 10/18/16 10/18/16 19:58 20:55 22:11 WBC RBC Hgb Hct MCV MCHC RDW Plt Count Seg Neuts % (Manual) Lymphocytes % (Manual) Nucleated RBC % Seg Neutrophils # Man Lymphocytes # (Manual) Haptoglobin PT INR Fibrinogen Lupus Anticoagulant LA PTT Baseline POC ABG pH POC ABG pCO2 POC ABG pO2 Sodium Potassium Chloride Carbon Dioxide BUN Creatinine Glucose POC Glucose 127 H 125 H 159 H Lactic Acid Uric Acid Calcium Phosphorus Iron TIBC Ferritin Total Bilirubin Direct Bilirubin AST ALT Alkaline Phosphatase Lactate Dehydrogenase C-Reactive Protein Serum Total Protein Total Protein Albumin Jiujh-6-Hukaikhnd Abnorm Protein Band 1 PEP Interpretation Crossmatch 10/18/16 10/18/16 10/19/16 23:11 23:57 01:06 WBC RBC Hgb Hct MCV MCHC RDW Plt Count Seg Neuts % (Manual) Lymphocytes % (Manual) Nucleated RBC % Seg Neutrophils # Man Lymphocytes # (Manual) Haptoglobin PT INR Fibrinogen Lupus Anticoagulant LA PTT Baseline POC ABG pH POC ABG pCO2 POC ABG pO2 Sodium Potassium Chloride Carbon Dioxide BUN Creatinine Glucose POC Glucose 122 H 137 H 162 H Lactic Acid Uric Acid Calcium Phosphorus Iron TIBC Ferritin Total Bilirubin Direct Bilirubin AST ALT Alkaline Phosphatase Lactate Dehydrogenase C-Reactive Protein Serum Total Protein Total Protein Albumin Dqnss-4-Smsrfwquw Abnorm Protein Band 1 PEP Interpretation Crossmatch 10/19/16 10/19/16 10/19/16 01:59 03:07 04:10 WBC RBC Hgb Hct MCV MCHC RDW Plt Count Seg Neuts % (Manual) Lymphocytes % (Manual) Nucleated RBC % Seg Neutrophils # Man Lymphocytes # (Manual) Haptoglobin PT INR Fibrinogen Lupus Anticoagulant LA PTT Baseline POC ABG pH POC ABG pCO2 POC ABG pO2 Sodium Potassium Chloride Carbon Dioxide BUN Creatinine Glucose POC Glucose 154 H 178 H 186 H Lactic Acid Uric Acid Calcium Phosphorus Iron TIBC Ferritin Total Bilirubin Direct Bilirubin AST ALT Alkaline Phosphatase Lactate Dehydrogenase C-Reactive Protein Serum Total Protein Total Protein Albumin Unefr-0-Rdujuazfp Abnorm Protein Band 1 PEP Interpretation Crossmatch 10/19/16 10/19/16 10/19/16 05:14 05:15 05:47 WBC RBC Hgb Hct MCV MCHC RDW Plt Count Seg Neuts % (Manual) Lymphocytes % (Manual) Nucleated RBC % Seg Neutrophils # Man Lymphocytes # (Manual) Haptoglobin PT INR Fibrinogen Lupus Anticoagulant LA PTT Baseline POC ABG pH 7.581 H POC ABG pCO2 22.9 L POC ABG pO2 58 L Sodium Potassium Chloride Carbon Dioxide BUN Creatinine Glucose POC Glucose 197 H 204 H Lactic Acid Uric Acid Calcium Phosphorus Iron TIBC Ferritin Total Bilirubin Direct Bilirubin AST ALT Alkaline Phosphatase Lactate Dehydrogenase C-Reactive Protein Serum Total Protein Total Protein Albumin Wecva-2-Gzmxnhkba Abnorm Protein Band 1 PEP Interpretation Crossmatch 10/19/16 10/19/16 10/19/16 06:00 06:00 07:51 WBC 23.0 H RBC 2.54 L Hgb 7.5 L Hct 23.0 L MCV MCHC RDW 20.7 H Plt Count 25 L Seg Neuts % (Manual) 91.0 H Lymphocytes % (Manual) 2.0 L Nucleated RBC % 1.0 H Seg Neutrophils # Man 20.9 H Lymphocytes # (Manual) 0.5 L Haptoglobin PT INR Fibrinogen Lupus Anticoagulant LA PTT Baseline POC ABG pH POC ABG pCO2 POC ABG pO2 Sodium Potassium Chloride 88.7 L Carbon Dioxide 21 L BUN 70 H Creatinine 3.9 H Glucose 189 H POC Glucose 145 H Lactic Acid Uric Acid Calcium 5.6 L* Phosphorus 6.30 H Iron TIBC Ferritin Total Bilirubin Direct Bilirubin AST ALT Alkaline Phosphatase Lactate Dehydrogenase C-Reactive Protein Serum Total Protein Total Protein Albumin Npcmd-4-Awcnlplhy Abnorm Protein Band 1 PEP Interpretation Crossmatch 10/19/16 10/19/16 10/19/16 09:14 10:01 12:14 WBC RBC Hgb Hct MCV MCHC RDW Plt Count Seg Neuts % (Manual) Lymphocytes % (Manual) Nucleated RBC % Seg Neutrophils # Man Lymphocytes # (Manual) Haptoglobin PT INR Fibrinogen Lupus Anticoagulant LA PTT Baseline POC ABG pH POC ABG pCO2 POC ABG pO2 Sodium Potassium Chloride Carbon Dioxide BUN Creatinine Glucose POC Glucose 173 H 153 H 180 H Lactic Acid Uric Acid Calcium Phosphorus Iron TIBC Ferritin Total Bilirubin Direct Bilirubin AST ALT Alkaline Phosphatase Lactate Dehydrogenase C-Reactive Protein Serum Total Protein Total Protein Albumin Qtrtq-3-Ocaxofdkl Abnorm Protein Band 1 PEP Interpretation Crossmatch 10/19/16 10/19/16 10/19/16 16:38 20:27 23:27 WBC RBC Hgb Hct MCV MCHC RDW Plt Count Seg Neuts % (Manual) Lymphocytes % (Manual) Nucleated RBC % Seg Neutrophils # Man Lymphocytes # (Manual) Haptoglobin PT INR Fibrinogen Lupus Anticoagulant LA PTT Baseline POC ABG pH POC ABG pCO2 POC ABG pO2 Sodium Potassium Chloride Carbon Dioxide BUN Creatinine Glucose POC Glucose 194 H 202 H 201 H Lactic Acid Uric Acid Calcium Phosphorus Iron TIBC Ferritin Total Bilirubin Direct Bilirubin AST ALT Alkaline Phosphatase Lactate Dehydrogenase C-Reactive Protein Serum Total Protein Total Protein Albumin Qmili-9-Bvlfslxfc Abnorm Protein Band 1 PEP Interpretation Crossmatch 10/20/16 10/20/16 10/20/16 04:06 05:00 05:16 WBC RBC Hgb Hct MCV MCHC RDW Plt Count Seg Neuts % (Manual) Lymphocytes % (Manual) Nucleated RBC % Seg Neutrophils # Man Lymphocytes # (Manual) Haptoglobin PT INR Fibrinogen Lupus Anticoagulant LA PTT Baseline POC ABG pH 7.463 H POC ABG pCO2 POC ABG pO2 157 H Sodium Potassium Chloride 88.8 L Carbon Dioxide BUN 93 H Creatinine 4.3 H Glucose 204 H POC Glucose 200 H Lactic Acid Uric Acid Calcium 5.2 L* Phosphorus Iron TIBC Ferritin Total Bilirubin Direct Bilirubin AST ALT Alkaline Phosphatase Lactate Dehydrogenase C-Reactive Protein Serum Total Protein Total Protein Albumin Suxhx-8-Dertmkstf Abnorm Protein Band 1 PEP Interpretation Crossmatch 10/20/16 10/20/16 10/20/16 06:00 07:43 12:11 WBC 24.8 H RBC 2.52 L Hgb 7.4 L Hct 22.9 L MCV MCHC RDW 19.9 H Plt Count 23 L Seg Neuts % (Manual) 97.0 H Lymphocytes % (Manual) 1.0 L Nucleated RBC % 9.0 H Seg Neutrophils # Man 24.1 H Lymphocytes # (Manual) 0.2 L Haptoglobin PT INR Fibrinogen Lupus Anticoagulant LA PTT Baseline POC ABG pH POC ABG pCO2 POC ABG pO2 Sodium Potassium Chloride Carbon Dioxide BUN Creatinine Glucose POC Glucose 192 H 172 H Lactic Acid Uric Acid Calcium Phosphorus Iron TIBC Ferritin Total Bilirubin Direct Bilirubin AST ALT Alkaline Phosphatase Lactate Dehydrogenase C-Reactive Protein Serum Total Protein Total Protein Albumin Uozit-1-Wbaaelgof Abnorm Protein Band 1 PEP Interpretation Crossmatch 10/20/16 10/20/16 10/20/16 15:32 21:23 23:49 WBC RBC Hgb Hct MCV MCHC RDW Plt Count Seg Neuts % (Manual) Lymphocytes % (Manual) Nucleated RBC % Seg Neutrophils # Man Lymphocytes # (Manual) Haptoglobin PT INR Fibrinogen Lupus Anticoagulant LA PTT Baseline POC ABG pH POC ABG pCO2 POC ABG pO2 Sodium Potassium Chloride Carbon Dioxide BUN Creatinine Glucose POC Glucose 216 H 271 H 317 H Lactic Acid Uric Acid Calcium Phosphorus Iron TIBC Ferritin Total Bilirubin Direct Bilirubin AST ALT Alkaline Phosphatase Lactate Dehydrogenase C-Reactive Protein Serum Total Protein Total Protein Albumin Lflyn-1-Pyvnyjjiv Abnorm Protein Band 1 PEP Interpretation Crossmatch 10/21/16 10/21/16 10/21/16 03:53 04:58 05:25 WBC RBC Hgb Hct MCV MCHC RDW Plt Count Seg Neuts % (Manual) Lymphocytes % (Manual) Nucleated RBC % Seg Neutrophils # Man Lymphocytes # (Manual) Haptoglobin PT INR Fibrinogen Lupus Anticoagulant LA PTT Baseline POC ABG pH 7.459 H POC ABG pCO2 POC ABG pO2 113 H Sodium 136 L Potassium 2.8 L* D Chloride 91.6 L Carbon Dioxide BUN 62 H Creatinine 2.8 H Glucose 236 H POC Glucose 237 H Lactic Acid Uric Acid Calcium 6.2 L D Phosphorus Iron TIBC Ferritin Total Bilirubin 2.70 H Direct Bilirubin AST 73 H ALT 57 H Alkaline Phosphatase 158 H Lactate Dehydrogenase C-Reactive Protein Serum Total Protein Total Protein 4.9 L Albumin 2.6 L Mlbvz-0-Eiujlciaf Abnorm Protein Band 1 PEP Interpretation Crossmatch 10/21/16 07:11 WBC RBC Hgb Hct MCV MCHC RDW Plt Count Seg Neuts % (Manual) Lymphocytes % (Manual) Nucleated RBC % Seg Neutrophils # Man Lymphocytes # (Manual) Haptoglobin PT INR Fibrinogen Lupus Anticoagulant LA PTT Baseline POC ABG pH POC ABG pCO2 POC ABG pO2 Sodium Potassium Chloride Carbon Dioxide BUN Creatinine Glucose POC Glucose 206 H Lactic Acid Uric Acid Calcium Phosphorus Iron TIBC Ferritin Total Bilirubin Direct Bilirubin AST ALT Alkaline Phosphatase Lactate Dehydrogenase C-Reactive Protein Serum Total Protein Total Protein Albumin Muqgt-3-Anpuikxbs Abnorm Protein Band 1 PEP Interpretation Crossmatch Allied health notes reviewed: RT ED Critical Care Note - Critical Care Note Total Time (mins): 35
--- NOTE | 2016-10-21 09:49 | Progress Note ---
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 Acute respiratory failure - intubated. Sepsis / beta hemolitic strep bacterimia / leukocytosis Paroxysmal atrial fibrillation with variable ventricular response --> SR Acute metabolic encephalopathy ARF on CKD - requiring HD Profound metabolic acidemia/lactic acidosis Anemia / thrombocytopenia Hypocalcemia Plan: Cont PO amio, 200mg BID. Given anemia and thrombocytopenia, would defer systemic anticoagulation for now. Second blood culture with no growth after 72 hours. However, will consider JONATHAN next week if recommended per ID. Consider ischemic evaluation when medically stabilized. No ACEI/ARB in setting of ARF on CKD. No BB in setting of hypotension. Watch volume status closely Poor prognosis. The patient has been seen in conjunction with Dr. Vargas who agrees with the assessment and plan of care. Subjective Date of service: 10/21/16 Principal diagnosis: Sepsis Syndrome; MAHA; RAJESH; CHF Interval history: Pt remains intubated. Remains in SR. No family at bedside. Objective Last Vital Signs Temp 97.6 F 10/21/16 07:55 Pulse 72 10/21/16 09:45 Resp 18 10/21/16 09:45 BP 149/90 10/21/16 09:45 Pulse Ox 100 10/21/16 09:45 - Physical Examination General: Other (intubated; nonresponsive ) Neck: Positive: neck supple, trachea midline Lungs: Positive: Decreased Breath Sounds, Ventilated Respirations Neuro: Positive: Other (intubated; nonresponsive ) Abdomen: Positive: Soft, Active Bowel Sounds Skin: Positive: Clear. Negative: Rash, Wound Musculoskeletal: No Fluid Collection, No Pain, Normal Range of Motion Extremities: Present: upper extr. pulses, lower extr. pulses. Absent: edema - Labs and Meds Cardiac Enzymes 10/21/16 Range/Units 03:53 AST 73 H (5-40) units/L Comprehensive Metabolic Panel 10/21/16 Range/Units 03:53 Sodium 136 L (137-145) mmol/L Potassium 2.8 L* D (3.6-5.0) mmol/L Chloride 91.6 L (98-107) mmol/L Carbon Dioxide 26 (22-30) mmol/L BUN 62 H (9-20) mg/dL Creatinine 2.8 H (0.8-1.5) mg/dL Glucose 236 H (75-100) mg/dL Calcium 6.2 L D (8.4-10.2) mg/dL AST 73 H (5-40) units/L ALT 57 H (7-56) units/L Alkaline Phosphatase 158 H (35-129) units/L Total Protein 4.9 L (6.3-8.2) g/dL Albumin 2.6 L (3.9-5) g/dL - Imaging and Cardiology EKG: report reviewed, image reviewed Echo: report reviewed - Telemetry EKG Rhythm: Sinus Rhythm - Allied health notes Allied health notes reviewed: RT
--- NOTE | 2016-10-21 10:23 | Progress Note ---
Assessment and Plan - Patient Problems (1) Renal failure Current Visit: Yes Status: Acute Qualifiers: Qualified Code(s): N17.9 - Acute kidney failure, unspecified Plan to address problem: Received hemodialysis yesterday No acute indication for HD today Hypokalemia-in repletion with KCL 40 meq x1 Hypocalcemia-in repletion with IV Calcium Gluconate 1 gram IV x1 Strict I/O monitoring Avoid Nephrotoxic agents Renally dose medications Obtain daily weights Monitor renal function daily (2) Acute respiratory failure Current Visit: Yes Status: Acute Qualifiers: Qualified Code(s): J96.01 - Acute respiratory failure with hypoxia Plan to address problem: Intubated as per Pulmonary (3) Anemia Current Visit: Yes Status: Acute Qualifiers: Qualified Code(s): D64.9 - Anemia, unspecified Plan to address problem: Monitor labs and transfuse as needed Hematology onboard (4) Atrial fibrillation Current Visit: Yes Status: Acute Plan to address problem: On Amiodarone as per Cardiology Echo-LVEF 30-35% (5) Septic shock Current Visit: Yes Status: Acute Plan to address problem: On Levophed drip On IV Clindamycin On D5+ 1/2NS@ 75 ml/hr for Hypoglycemia (6) Thrombocytopenia Current Visit: Yes Status: Acute Plan to address problem: 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 Possible Amyloidosis. On Plasmaphareis therapy Platelet is worsening, now 14 today Hematology onboard Subjective Date of service: 10/21/16 Principal diagnosis: Sepsis Syndrome; MAHA; RAJESH; CHF Interval history: Patient remains intubated. Spontaneously bites down on ET tube. at bedside. Objective - Vital Signs Vital signs: Vital Signs - 12hr 10/20/16 10/20/16 10/20/16 22:30 22:45 23:00 Temperature Pulse Rate 72 72 71 Respiratory 13 19 20 Rate Blood Pressure 145/85 149/85 140/82 O2 Sat by Pulse 100 100 100 Oximetry 10/20/16 10/20/16 10/20/16 23:15 23:30 23:45 Temperature Pulse Rate 72 73 71 Respiratory 18 16 19 Rate Blood Pressure 137/80 142/85 133/81 O2 Sat by Pulse 100 100 100 Oximetry 10/20/16 10/21/16 10/21/16 23:46 00:00 00:15 Temperature 98.4 F Pulse Rate 72 71 Respiratory 9 L 11 L Rate Blood Pressure 128/80 115/73 O2 Sat by Pulse 99 100 Oximetry 10/21/16 10/21/16 10/21/16 00:19 00:30 00:45 Temperature Pulse Rate 73 72 71 Respiratory 22 21 Rate Blood Pressure 137/80 131/85 126/82 O2 Sat by Pulse 100 100 100 Oximetry 10/21/16 10/21/16 10/21/16 01:00 01:15 01:30 Temperature Pulse Rate 72 72 73 Respiratory 19 20 21 Rate Blood Pressure 133/82 140/87 146/86 O2 Sat by Pulse 100 100 100 Oximetry 10/21/16 10/21/16 10/21/16 01:45 02:00 02:15 Temperature Pulse Rate 73 74 73 Respiratory 19 21 19 Rate Blood Pressure 138/85 153/91 140/84 O2 Sat by Pulse 100 100 100 Oximetry 10/21/16 10/21/16 10/21/16 02:30 02:45 03:00 Temperature Pulse Rate 74 76 73 Respiratory 21 20 22 Rate Blood Pressure 143/85 163/92 154/85 O2 Sat by Pulse 100 100 100 Oximetry 10/21/16 10/21/16 10/21/16 03:15 03:30 03:45 Temperature Pulse Rate 72 73 75 Respiratory 18 19 23 Rate Blood Pressure 123/73 134/79 145/90 O2 Sat by Pulse 99 99 100 Oximetry 10/21/16 10/21/16 10/21/16 04:00 04:15 04:30 Temperature 98.7 F Pulse Rate 74 74 73 Respiratory 19 20 20 Rate Blood Pressure 148/87 144/83 132/77 O2 Sat by Pulse 98 100 100 Oximetry 10/21/16 10/21/16 10/21/16 04:45 05:00 05:05 Temperature Pulse Rate 75 74 74 Respiratory 22 20 Rate Blood Pressure 139/83 137/83 139/83 O2 Sat by Pulse 100 100 100 Oximetry 10/21/16 10/21/16 10/21/16 05:15 05:30 05:45 Temperature Pulse Rate 74 71 70 Respiratory 21 21 18 Rate Blood Pressure 143/88 133/85 131/83 O2 Sat by Pulse 100 100 97 Oximetry 10/21/16 10/21/16 10/21/16 06:00 06:16 06:30 Temperature Pulse Rate 69 72 70 Respiratory 20 20 18 Rate Blood Pressure 120/76 147/87 128/78 O2 Sat by Pulse 95 100 100 Oximetry 10/21/16 10/21/16 10/21/16 06:45 07:00 07:15 Temperature Pulse Rate 73 71 72 Respiratory 21 8 L 16 Rate Blood Pressure 140/82 121/75 127/82 O2 Sat by Pulse 100 100 100 Oximetry 10/21/16 10/21/16 10/21/16 07:30 07:45 07:55 Temperature 97.6 F Pulse Rate 69 73 Respiratory 15 23 Rate Blood Pressure 112/72 138/81 O2 Sat by Pulse 100 100 Oximetry 10/21/16 10/21/16 10/21/16 08:00 08:09 08:16 Temperature Pulse Rate 72 72 76 Respiratory 9 L 21 Rate Blood Pressure 133/83 133/83 174/104 O2 Sat by Pulse 100 100 100 Oximetry 10/21/16 10/21/16 10/21/16 08:23 08:30 08:45 Temperature Pulse Rate 75 74 72 Respiratory 14 15 Rate Blood Pressure 130/79 139/87 O2 Sat by Pulse 100 100 100 Oximetry 10/21/16 10/21/16 10/21/16 09:00 09:15 09:30 Temperature Pulse Rate 71 73 72 Respiratory 13 13 17 Rate Blood Pressure 136/86 143/95 150/91 O2 Sat by Pulse 100 84 100 Oximetry 10/21/16 09:45 Temperature Pulse Rate 72 Respiratory 18 Rate Blood Pressure 149/90 O2 Sat by Pulse 100 Oximetry - General Appearance General appearance: intubated EENT: ATNC Neck: no JVD Respiratory: Present: Decreased Breath Sounds Cardiology: regular, S1S2 Gastrointestinal: normoactive bowel sounds, other (Has dobhoff tube feeding ) Integumentary: warm and dry Neurologic: other (Not awake. Unresponsive. Intubated.) Musculoskeletal: other (2+ edema to bilateral lower extremities) - Lab 10/21/16 10:30 10/21/16 03:53 Most recent lab results Calcium 6.2 mg/dL (8.4-10.2) L D 10/21/16 03:53 Phosphorus 6.30 mg/dL (2.5-4.5) H 10/19/16 06:00
[2016-10-21 10:41] LABS: Hematocrit 21.6 % (35.5-45.6); Mean Corpuscular HGB Conc 33 % (32-34); Mean Corpuscular Hemoglobin 30 pg (28-32); Mean Corpuscular Volume 92 fl (84-94); Red Blood Count 2.36 M/mm3 (3.65-5.03)
[2016-10-21 10:45] LABS: White Blood Count 28.1 K/mm3 (4.5-11.0)
[2016-10-21 10:47] LABS: Platelet Count 14 K/mm3 (140-440)
[2016-10-21 11:29] LABS: Anisocytosis 2+; Basophils % (Manual) 0 % (0.0-1.8); Blastocytes % (Manual) 0 %; Elliptocytes Few; Eosinophils % (Manual) 0 % (0.0-4.3); Hypochromasia 1+; Ovalocytes 1+
[2016-10-21 11:30] LABS: Basophilic Stippling Rare; Diff Status Complete; Giant Platelets Rare; Helmet Cells Rare; Platelet Estimate Appears Decreased; Polychromasia 1+; Stomatocytes Few
[2016-10-21] MEDS ORDERED: CALCIUM GLUCONATE 1,000 MG in NACL 0.9% 100 ML IV ONE (11:30)
[2016-10-21 11:57] LABS: INR 5.28 (0.87-1.13)
[2016-10-21] MEDS ORDERED: CALCIUM GLUCONATE 2,000 MG in NACL 0.9% 100 ML IV ONE (12:39)
[2016-10-21] MEDS ORDERED: NACL ONE (13:35)
--- NOTE | 2016-10-21 14:58 | Progress Note ---
Assessment and Plan Assessment and plan: Patient is a 61-year-old man with no significant past medical history who presented to the emergency department [facility] 10/13/16, complaining of bilateral leg swelling that worsened for the last 4 days. He was found to have severe metabolic acidosis, creatinine was 14.5 with hyperkalemia, emergent Hemodialysis was set up. He was found to have severe pancytopenia and thrombocytopenia. Dr. 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 He was on bipap and was intubated 10/16/16, details are not readily available on why he needed to be intubated, no nursing note for . -Acute encephalopathy, not sedated, will consult Neurology. 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 Follow up on respiratory failure, patient still intubated. Overnight uneventful. No cp, sob, n/v or severe headaches. Imaging, old records, testing, labs, nursing notes reviewed. Hospitalist Physical - Physical exam Narrative exam: GEN: Critically ill intubated but not sedated HEENT: Eyes are floating, ET tube in place CVS: irregular, NORMAL S1S2 LUNGS/CHEST: NORMAL CHEST EXPANSION B, GOOD AIR ENTRY B ABD: SOFT, POSITIVE BOWEL SOUNDS, NONDISTENDED, NO REBOUND OR GUARDING NEURO: CN 2-12 GROSSLY INTACT, he doesn't follow commands PSY: Unresponsive - Constitutional Vitals: Temp Pulse Resp BP Pulse Ox 98.2 F 72 18 142/89 100 10/21/16 12:00 10/21/16 13:45 10/21/16 13:45 10/21/16 13:45 10/21/16 13:45 General appearance: Present: well-nourished Results - Labs CBC & Chem 7: 10/21/16 10:30 10/21/16 03:53 Labs: Laboratory Last Values WBC 28.1 K/mm3 (4.5-11.0) H 10/21/16 10:30 RBC 2.36 M/mm3 (3.65-5.03) L 10/21/16 10:30 Hgb 7.0 gm/dl (11.8-15.2) L 10/21/16 10:30 Hct 21.6 % (35.5-45.6) L 10/21/16 10:30 MCV 92 fl (84-94) 10/21/16 10:30 MCH 30 pg (28-32) 10/21/16 10:30 MCHC 33 % (32-34) 10/21/16 10:30 RDW 20.0 % (13.2-15.2) H 10/21/16 10:30 Plt Count 14 K/mm3 (140-440) L* 10/21/16 10:30 Lymph % (Auto) Stabber 10/14/16 04:34 Wells % (Auto) Stabber 10/14/16 04:34 Eos % (Auto) Stabber 10/14/16 04:34 Baso % (Auto) Stabber 10/14/16 04:34 Lymph # Stabber 10/14/16 04:34 Wells # Stabber 10/14/16 04:34 Eos # Stabber 10/14/16 04:34 Baso # Stabber 10/14/16 04:34 Add Manual Diff Complete 10/21/16 10:30 Total Counted 100 10/21/16 10:30 Seg Neutrophils % Stabber 10/21/16 10:30 Seg Neuts % (Manual) 92.0 % (40.0-70.0) H 10/21/16 10:30 Band Neutrophils % 5.0 % 10/21/16 10:30 Lymphocytes % (Manual) 0 % (13.4-35.0) L 10/21/16 10:30 Reactive Lymphs % (Man) 0 % 10/21/16 10:30 Monocytes % (Manual) 0 % (0.0-7.3) 10/21/16 10:30 Eosinophils % (Manual) 0 % (0.0-4.3) 10/21/16 10:30 Basophils % (Manual) 0 % (0.0-1.8) 10/21/16 10:30 Metamyelocytes % 2.0 % 10/21/16 10:30 Myelocytes % 0 % 10/21/16 10:30 Promyelocytes % 1.0 % 10/21/16 10:30 Blast Cells % 0 % 10/21/16 10:30 Nucleated RBC % 5.0 % (0.0-0.9) H 10/21/16 10:30 Seg Neutrophils # Stabber 10/14/16 04:34 Seg Neutrophils # Man 25.9 K/mm3 (1.8-7.7) H 10/21/16 10:30 Band Neutrophils # 1.4 K/mm3 10/21/16 10:30 Lymphocytes # (Manual) 0.0 K/mm3 (1.2-5.4) L 10/21/16 10:30 Abs React Lymphs (Man) 0.0 K/mm3 10/21/16 10:30 Monocytes # (Manual) 0.0 K/mm3 (0.0-0.8) 10/21/16 10:30 Eosinophils # (Manual) 0.0 K/mm3 (0.0-0.4) 10/21/16 10:30 Basophils # (Manual) 0.0 K/mm3 (0.0-0.1) 10/21/16 10:30 Metamyelocytes # 0.6 K/mm3 10/21/16 10:30 Myelocytes # 0.0 K/mm3 10/21/16 10:30 Promyelocytes # 0.3 K/mm3 10/21/16 10:30 Blast Cells # 0.0 K/mm3 10/21/16 10:30 WBC Morphology Not Reportable 10/21/16 10:30 Hypersegmented Neuts Not Reportable 10/21/16 10:30 Hyposegmented Neuts Not Reportable 10/21/16 10:30 Hypogranular Neuts Not Reportable 10/21/16 10:30 Smudge Cells Not Reportable 10/21/16 10:30 Toxic Granulation Not Reportable 10/21/16 10:30 Toxic Vacuolation Not Reportable 10/21/16 10:30 Dohle Bodies Not Reportable 10/21/16 10:30 Pelger-Huet Anomaly Not Reportable 10/21/16 10:30 Madhu Rods Not Reportable 10/21/16 10:30 Platelet Estimate Appears decreased 10/21/16 10:30 Clumped Platelets Not Reportable 10/21/16 10:30 Plt Clumps, EDTA Not Reportable 10/21/16 10:30 Large Platelets Not Reportable 10/21/16 10:30 Giant Platelets Rare 10/21/16 10:30 Platelet Satelliting Not Reportable 10/21/16 10:30 Plt Morphology Comment Not Reportable 10/21/16 10:30 RBC Morphology Not Reportable 10/21/16 10:30 Dimorphic RBCs Not Reportable 10/21/16 10:30 Polychromasia 1+ 10/21/16 10:30 Hypochromasia 1+ 10/21/16 10:30 Poikilocytosis Not Reportable 10/21/16 10:30 Basophilic Stippling Rare 10/21/16 10:30 Anisocytosis 2+ 10/21/16 10:30 Microcytosis Not Reportable 10/21/16 10:30 Macrocytosis Not Reportable 10/21/16 10:30 Spherocytes Not Reportable 10/21/16 10:30 Pappenheimer Bodies Not Reportable 10/21/16 10:30 Sickle Cells Not Reportable 10/21/16 10:30 Target Cells Not Reportable 10/21/16 10:30 Tear Drop Cells Not Reportable 10/21/16 10:30 Ovalocytes 1+ 10/21/16 10:30 Stomatocytes Few 10/21/16 10:30 Helmet Cells Rare 10/21/16 10:30 Goodman-Talihina Bodies Not Reportable 10/21/16 10:30 Melvin Rings Not Reportable 10/21/16 10:30 Sabrina Cells Not Reportable 10/21/16 10:30 Bite Cells Not Reportable 10/21/16 10:30 Crenated Cell Not Reportable 10/21/16 10:30 Elliptocytes Few 10/21/16 10:30 Acanthocytes (Spur) Not Reportable 10/21/16 10:30 Rouleaux Not Reportable 10/21/16 10:30 Hemoglobin C Crystals Not Reportable 10/21/16 10:30 Schistocytes Not Reportable 10/21/16 10:30 Malaria parasites Not Reportable 10/21/16 10:30 ESR 77 mm/Hr (0-20) 10/14/16 04:34 Pal Bodies Not Reportable 10/21/16 10:30 Haptoglobin <15 mg/dL (43-212) L 10/15/16 12:00 Hem Pathologist Commnt No 10/21/16 10:30 PT 49.1 Sec. (12.2-14.9) H 10/21/16 11:25 INR 5.28 (0.87-1.13) H* 10/21/16 11:25 Fibrinogen 557 mg/dl (211-480) H 10/14/16 09:58 Lupus Anticoagulant see below H 10/14/16 03:00 LA PTT Baseline 55 sec (<=40) H 10/14/16 03:00 dRVVT Confirm Interp Negative (Negative) 10/14/16 03:00 POC ABG pH 7.459 (7.35-7.45) H 10/21/16 04:58 POC ABG pCO2 40.8 (35-45) 10/21/16 04:58 POC ABG pO2 113 (80-105) H 10/21/16 04:58 POC ABG HCO3 28.9 10/21/16 04:58 POC ABG Total CO2 30 10/21/16 04:58 POC ABG O2 Sat 99 10/21/16 04:58 POC ABG Base Excess 5 10/21/16 04:58 FiO2 28 % 10/21/16 04:58 Sodium 136 mmol/L (137-145) L 10/21/16 03:53 Potassium 2.8 mmol/L (3.6-5.0) L* D 10/21/16 03:53 Chloride 91.6 mmol/L (98-107) L 10/21/16 03:53 Carbon Dioxide 26 mmol/L (22-30) 10/21/16 03:53 Anion Gap 21 mmol/L 10/21/16 03:53 BUN 62 mg/dL (9-20) H 10/21/16 03:53 Creatinine 2.8 mg/dL (0.8-1.5) H 10/21/16 03:53 Estimated GFR 23 ml/min 10/21/16 03:53 BUN/Creatinine Ratio 22.14 % 10/21/16 03:53 Glucose 236 mg/dL (75-100) H 10/21/16 03:53 POC Glucose 145 (70-105) H 10/21/16 12:31 Lactic Acid 14.30 mmol/L (0.7-2.0) H* 10/18/16 09:15 Uric Acid 8.0 mg/dL (3.5-7.6) H 10/14/16 03:00 Calcium 6.2 mg/dL (8.4-10.2) L D 10/21/16 03:53 Phosphorus 6.30 mg/dL (2.5-4.5) H 10/19/16 06:00 Iron 146 ug/dL (49-181) 10/15/16 05:35 TIBC 166 mcg/dL (250-450) L 10/15/16 05:35 Ferritin 9562.0 ng/mL (13.0-400.0) H 10/15/16 05:35 Total Bilirubin 2.70 mg/dL (0.1-1.2) H 10/21/16 03:53 Direct Bilirubin 1.1 mg/dL (0-0.2) H 10/14/16 09:58 Indirect Bilirubin 0.2 mg/dL 10/14/16 09:58 AST 73 units/L (5-40) H 10/21/16 03:53 ALT 57 units/L (7-56) H 10/21/16 03:53 Alkaline Phosphatase 158 units/L (35-129) H 10/21/16 03:53 Ammonia 32.0 umol/L (25-60) 10/19/16 14:15 Lactate Dehydrogenase 3871 units/L (91-180) H 10/15/16 05:35 Troponin T 0.079 ng/mL (0.00-0.029) H 10/13/16 10:14 C-Reactive Protein 40.40 mg/dL (0.00-1.30) H 10/14/16 12:52 NT-Pro-B Natriuret Pep > 66373 pg/mL (0-900) H 10/13/16 10:14 Serum Total Protein 5.6 g/dL (6.1-8.1) L 10/13/16 14:50 Total Protein 4.9 g/dL (6.3-8.2) L 10/21/16 03:53 Albumin 2.6 g/dL (3.9-5) L 10/21/16 03:53 Albumin/Globulin Ratio 1.1 % 10/21/16 03:53 Ljzys-0-Dfiixquxi 0.5 g/dL (0.2-0.3) H 10/13/16 14:50 Yxnbq-4-Txzpsjwjx 0.6 g/dL (0.5-0.9) 10/13/16 14:50 Beta Globulins 0.3 g/dL (0.2-0.5) 10/13/16 14:50 Gamma Globulins 1.7 g/dL (0.8-1.7) 10/13/16 14:50 Abnorm Protein Band 1 1.4 g/dL H 10/13/16 14:50 PEP Interpretation see below H 10/13/16 14:50 Triglycerides 119 mg/dL (2-149) 10/13/16 10:14 Cholesterol 71 mg/dL (50-199) 10/13/16 10:14 LDL Cholesterol Direct 41 mg/dL (50-130) L 10/13/16 10:14 HDL Cholesterol 7 mg/dL (40-59) L 10/13/16 10:14 Cholesterol/HDL Ratio 10.14 % 10/13/16 10:14 Lipase 21 units/L (13-60) 10/15/16 05:35 Vitamin B12 893.9 pg/mL (211-911) 10/14/16 03:00 TSH 0.526 mlU/mL (0.270-4.200) 10/19/16 14:15 Random Vancomycin 15.2 ug/mL (0-40.0) 10/21/16 03:53 XU Screen Negative (Negative) 10/13/16 14:50 Proteinase 3 (PR3) Ab <1.0 AI (<1.0) 10/13/16 14:50 Myeloperoxidase Ab <1.0 AI (<1.0) 10/13/16 14:50 Glomerular Base Mem IgG <1.0 AI (<1.0) 10/13/16 14:50 Complement C3 101 mg/dL (90-180) 10/13/16 14:50 Complement C4 16 mg/dL (16-47) 10/13/16 14:50 Hep Bs Antigen Non-reactive (Negative) 10/13/16 14:50 Hepatitis C Antibody Non-reactive (NonReactive) 10/13/16 14:50 HIV 1&2 Antibody Rapid Non react (Non React) 10/13/16 14:50 HIV P24 Antigen Non react (Non React) 10/13/16 14:50 Schistocytes Smear None seen 10/15/16 12:00 Flow Intrp 16+ Markers Scanned into [facility] rec 10/14/16 11:30 Flow Cytometry Interp Scanned into [facility] rec 10/14/16 11:30 Blood Type O POSITIVE 10/17/16 07:59 Antibody Screen TNR 10/17/16 07:59 MADIHA Antibody Screen Negative 10/17/16 07:59 Direct Antiglob Test Negative 10/14/16 03:00 ELAINE, Poly Interpret Negative 10/14/16 03:00 Crossmatch See Detail 10/17/16 07:59
[2016-10-21] MEDS ORDERED: NACL 0.9% 500 ML 500 ML IV ONE (15:03)
[2016-10-21] MEDS: TYLENOL PO PRN (15:35)
[2016-10-21] MEDS: BENADRYL IV PRN (15:35)
[2016-10-22] MEDS: NOVOLOG SUB-Q SCH ×4 (01:25→17:43)
--- NOTE | 2016-10-22 03:00 | Cat Scan Report ---
FINAL REPORT PROCEDURE: CT HEAD/BRAIN WO CON TECHNIQUE: Computerized tomography of the head was performed without contrast material. HISTORY: Low plt, R/O bleed COMPARISON: 10/13/2016 FINDINGS: Prior examination was unremarkable. Current study demonstrates multiple bilateral areas of cortical and subcortical white matter low density suggesting multi focal ischemic infarcts. These are seen bilaterally in the frontal and parietal lobes and also in the posterior left temporal lobe. There are multiple focal hemorrhages within these areas of edema. Largest discrete hematoma is seen in the left parietal region measuring 11 millimeters. This suggests hemorrhagic transformation of infarcts. Possibility of hemorrhagic metastases are septic emboli not excluded. There is no subdural or epidural hemorrhage. There is underlying central and cortical atrophy chronic ischemic gliosis and multiple old lacunar infarcts. There is no mass effect, midline shift or herniation. The bony calvarium is intact. There are venous lakes versus is lytic lesions in the bony calvarium. There is no skull fracture. The paranasal sinuses are clear. 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 There is no midline shift or herniation. Nurse Maite Renae was notified by telephone at 2:52 a.m. [place].
[2016-10-22] MEDS: CLEOCIN 900 MG/50 mL 900 MG/50 ML BAG IV SCH ×3 (04:52→23:24)
[2016-10-22 05:48] LABS: ISTAT Base Excess 6; ISTAT HCO3 29.4; ISTAT PCO2 41.2 (35-45); ISTAT PH 7.462 (7.35-7.45); ISTAT PO2 102 (80-105); ISTAT SO2 98; ISTAT TCO2 31
[2016-10-22 06:16] LABS: Albumin 2.5 g/dL (3.9-5); BUN/Creatinine Ratio 24.7
[2016-10-22 06:17] LABS: Chloride 88.5 mmol/L (98-107)
[2016-10-22 06:20] LABS: Calcium 5.9 mg/dL (8.4-10.2)
--- NOTE | 2016-10-22 09:37 | XRay Report ---
AP CHEST History: Followup respiratory failure. Lines and tubes remain in the same position. Cardiomegaly, pulmonary venous congestion and small left pleural effusion are stable since yesterday's exam. No new acute process is appreciated. Impression: No significant change in CHF.
[2016-10-22] MEDS ORDERED: CALCIUM GLUCONATE 2,000 MG in NACL 0.9% 100 ML IV ONE (09:40)
[2016-10-22] MEDS ORDERED: BENADRYL IV ONE (09:41)
[2016-10-22] MEDS: PEPCID PO SCH (10:00)
[2016-10-22] MEDS: CORDARONE PO SCH ×2 (10:00→23:25)
[2016-10-22] MEDS: TYLENOL FEEDTUBE PRN (10:11)
--- NOTE | 2016-10-22 12:35 | Progress Note ---
Assessment and Plan - Patient Problems (1) Acute respiratory failure Current Visit: Yes Status: Acute Qualifiers: Respiratory failure complication: hypoxia Qualified Code(s): J96.01 - Acute respiratory failure with hypoxia Plan to address problem: Currently on AC-VC 25/500/PEEP 5/28% ABG 7.46/41/102/29.4 VAP bundle addressed HOB>40, aspiration precautions CXR prn Daily SATs/SBTs Agitation management- intermittent medication Nutrition - at goal and is being tolerated No VTE pharmacoprophylaxis secondary to severe coagulopathy Stress ulcer prophylaxis- Famotidine (2) Septic shock Current Visit: Yes Status: Acute Plan to address problem: Secondary to Streptococcal bacteremia/pneumonia Transthoracic echo was negative for vegetations Off vasopressor support and continues to maintain adequate blood pressure Antibiotics as per ID service (3) TTP (thrombotic thrombocytopenic purpura) Current Visit: Yes Status: Acute Plan to address problem: As per hematology. Avoid platelet transfusions Plasmapheresis Worsening thrombocytopenia. If platelets decrease below 15, monitor closely for spontaneous intra-cranial hemorrhage Avoid invasive procedures that may provoke mucosal bleeding Severe coagulopathy. Get CT head and may need FFP transfusions (4) RAJESH (acute kidney injury) Current Visit: Yes Status: Acute Plan to address problem: On supportive HD Renal managing (5) Anemia Current Visit: Yes Status: Acute Qualifiers: Anemia type: unspecified type Iron deficiency anemia type: I Vitamin B12 deficiency anemia type: V Folate deficiency anemia type: F Bone marrow failure anemia type: B Hemolytic anemia type: H Other causes of anemia: O Qualified Code(s): D64.9 - Anemia, unspecified Plan to address problem: Monitor, supportive transfusions as needed. s/p 1 unit PRBC (6) Acute encephalopathy Current Visit: Yes Status: Acute Plan to address problem: Worse today. Will discontinue propofol and then re-assess neurological status. If he does not improve and his thrombocytopenia continues to worsen, get non contrast CT head to r/o spontaneous intracranial hemorrhage. Subjective Date of service: 10/22/16 Principal diagnosis: Sepsis Syndrome; MAHA; RAJESH; CHF Interval history: Patient admitted with * Acute metabolic encephalopathy * AFIB WITH RVR * beta hemolitic strep BACTERIMIA * Acute Respiratory failure with hypoxia * Pancytopenia [leukopenia, severe anemia, Worsening thrombocytopenia] * End-stage renal disease * secondary coagulopathy * Lactic acidosis * Probable TTP, HUS * Acute systolic congestive heart failure EF around 30% * SEVERE SEPSIS * Today 10/22/2016 Critically ill, on mechanical ventilatory support- required orotracheal intubation 10/16/2016 Receiving plasmaphersis- for thrombocytopenia that is worsening On antibiotics for Strep PNA Seen and examined, vitals, labs, records reviewed. Oens eyes in response to my voice Tolerating tube feedings Seen and examined. Vitals, labs, medications, chart reviewed. discussed with RN/RT at the bedside Objective - Exam Narrative Exam: GEN: Critically ill intubated but not sedated HEENT: Eyes are floating, ET tube in place CVS: irregular, NORMAL S1S2 RIJ catheter- HD LUNGS/CHEST: NORMAL CHEST EXPANSION B, GOOD AIR ENTRY B ABD: SOFT, POSITIVE BOWEL SOUNDS, NONDISTENDED, NO REBOUND OR GUARDING NEURO: Not following commands, spontaneous eye opening PSY: Unresponsive Vital Signs - 12hr 10/22/16 10/22/16 10/22/16 00:45 01:00 01:15 Temperature Pulse Rate 75 78 76 Pulse Rate [ From Monitor] Respiratory 19 24 11 L Rate Blood Pressure 127/76 156/95 129/75 O2 Sat by Pulse 100 100 96 Oximetry 10/22/16 10/22/16 10/22/16 01:30 01:59 02:00 Temperature Pulse Rate 77 79 78 Pulse Rate [ From Monitor] Respiratory 20 10 L 21 Rate Blood Pressure 139/88 139/88 119/83 O2 Sat by Pulse 100 100 97 Oximetry 10/22/16 10/22/16 10/22/16 02:15 02:30 02:45 Temperature Pulse Rate 75 73 75 Pulse Rate [ From Monitor] Respiratory 15 15 16 Rate Blood Pressure 135/87 124/81 142/93 O2 Sat by Pulse 98 97 98 Oximetry 10/22/16 10/22/16 10/22/16 03:00 03:15 03:30 Temperature Pulse Rate 74 71 72 Pulse Rate [ From Monitor] Respiratory 16 18 18 Rate Blood Pressure 141/90 121/80 138/89 O2 Sat by Pulse 98 99 98 Oximetry 10/22/16 10/22/16 10/22/16 03:45 04:00 04:15 Temperature 98.9 F Pulse Rate 71 73 70 Pulse Rate [ 74 From Monitor] Respiratory 17 16 18 Rate Blood Pressure 127/85 148/94 136/88 O2 Sat by Pulse 100 100 100 Oximetry 10/22/16 10/22/16 10/22/16 04:30 04:45 05:00 Temperature Pulse Rate 72 72 70 Pulse Rate [ From Monitor] Respiratory 17 15 16 Rate Blood Pressure 147/93 146/95 133/88 O2 Sat by Pulse 100 100 Oximetry 10/22/16 10/22/16 10/22/16 05:15 05:25 05:30 Temperature Pulse Rate 75 70 71 Pulse Rate [ From Monitor] Respiratory 18 14 Rate Blood Pressure 138/89 138/89 144/93 O2 Sat by Pulse 100 99 98 Oximetry 10/22/16 10/22/16 10/22/16 05:45 06:00 06:15 Temperature Pulse Rate 68 72 69 Pulse Rate [ From Monitor] Respiratory 17 23 9 L Rate Blood Pressure 126/83 143/94 133/82 O2 Sat by Pulse 99 Oximetry 10/22/16 10/22/16 10/22/16 06:30 06:45 07:00 Temperature Pulse Rate 76 76 75 Pulse Rate [ From Monitor] Respiratory 20 19 19 Rate Blood Pressure 160/101 167/99 159/95 O2 Sat by Pulse Oximetry 10/22/16 10/22/16 10/22/16 07:15 07:30 07:45 Temperature Pulse Rate 71 72 72 Pulse Rate [ From Monitor] Respiratory 18 20 18 Rate Blood Pressure 125/81 129/83 128/82 O2 Sat by Pulse Oximetry 10/22/16 10/22/16 08:50 12:20 Temperature Pulse Rate 74 69 Pulse Rate [ From Monitor] Respiratory Rate Blood Pressure 114/70 121/77 O2 Sat by Pulse 100 98 Oximetry Constitutional: no acute distress, lethargic Eyes: non-icteric ENT: oropharynx dry Neck: supple, no lymphadenopathy Effort: normal, mildly labored Ascultation: Bilateral: clear, diminished breath sounds Cardiovascular: irregular rhythm Gastrointestinal: normoactive bowel sounds, soft, non-distended Integumentary: erythema (ecchymosis/purpura) Extremities: no cyanosis, pulses normal, no ischemia or petechiae, edema Neurologic: non-focal exam (grossly), pupils equal and round, unable to assess Psychiatric: other (unable to assess) CBC and BMP: 10/21/16 10:30 10/22/16 05:25 ABG, PT/INR, D-dimer: ABG POC ABG pH 7.462 (7.35-7.45) H 10/22/16 05:35 POC ABG pCO2 41.2 (35-45) 10/22/16 05:35 POC ABG pO2 102 (80-105) 10/22/16 05:35 POC ABG HCO3 29.4 10/22/16 05:35 POC ABG Total CO2 31 10/22/16 05:35 POC ABG O2 Sat 98 10/22/16 05:35 PT/INR, D-dimer PT 49.1 Sec. (12.2-14.9) H 10/21/16 11:25 INR 5.28 (0.87-1.13) H* 10/21/16 11:25 Abnormal lab findings: Abnormal Labs 10/13/16 10/13/16 10/13/16 14:50 21:40 22:05 WBC RBC Hgb Hct MCV MCHC RDW Plt Count Seg Neuts % (Manual) Lymphocytes % (Manual) Nucleated RBC % Seg Neutrophils # Man Lymphocytes # (Manual) Haptoglobin PT INR Fibrinogen Lupus Anticoagulant LA PTT Baseline POC ABG pH POC ABG pCO2 POC ABG pO2 Sodium Potassium Chloride Carbon Dioxide BUN Creatinine Glucose POC Glucose 52 L 43 L Lactic Acid Uric Acid Calcium Phosphorus Iron TIBC Ferritin Total Bilirubin Direct Bilirubin AST ALT Alkaline Phosphatase Lactate Dehydrogenase C-Reactive Protein Serum Total Protein 5.6 L Total Protein Albumin 2.2 L Qtkgi-0-Mftstszjw 0.5 H Abnorm Protein Band 1 1.4 H PEP Interpretation see below H Crossmatch 10/13/16 10/14/16 10/14/16 23:18 03:00 03:00 WBC RBC Hgb Hct MCV MCHC RDW Plt Count Seg Neuts % (Manual) Lymphocytes % (Manual) Nucleated RBC % Seg Neutrophils # Man Lymphocytes # (Manual) Haptoglobin PT INR Fibrinogen Lupus Anticoagulant see below H LA PTT Baseline 55 H POC ABG pH POC ABG pCO2 POC ABG pO2 Sodium Potassium Chloride Carbon Dioxide BUN Creatinine Glucose POC Glucose 113 H Lactic Acid Uric Acid Calcium Phosphorus Iron TIBC Ferritin Total Bilirubin Direct Bilirubin AST ALT Alkaline Phosphatase Lactate Dehydrogenase 406 H C-Reactive Protein Serum Total Protein Total Protein Albumin Eftku-6-Twolohibi Abnorm Protein Band 1 PEP Interpretation Crossmatch 10/14/16 10/14/16 10/14/16 03:00 03:00 04:34 WBC 1.3 L* RBC 2.33 L Hgb 7.3 L Hct 21.7 L MCV MCHC RDW 19.8 H Plt Count 99 L Seg Neuts % (Manual) Lymphocytes % (Manual) 3.0 L Nucleated RBC % Seg Neutrophils # Man 0.9 L Lymphocytes # (Manual) 0.0 L Haptoglobin PT INR Fibrinogen Lupus Anticoagulant LA PTT Baseline POC ABG pH POC ABG pCO2 POC ABG pO2 Sodium Potassium Chloride Carbon Dioxide 18 L BUN 73 H Creatinine 9.8 H Glucose 59 L POC Glucose Lactic Acid Uric Acid 8.0 H Calcium 8.2 L Phosphorus 6.60 H Iron 13 L TIBC 160 L Ferritin Total Bilirubin Direct Bilirubin AST ALT Alkaline Phosphatase Lactate Dehydrogenase C-Reactive Protein Serum Total Protein Total Protein Albumin Qgvzp-8-Znkjlmvok Abnorm Protein Band 1 PEP Interpretation Crossmatch 10/14/16 10/14/16 10/14/16 05:27 06:29 07:34 WBC RBC Hgb Hct MCV MCHC RDW Plt Count Seg Neuts % (Manual) Lymphocytes % (Manual) Nucleated RBC % Seg Neutrophils # Man Lymphocytes # (Manual) Haptoglobin PT INR Fibrinogen Lupus Anticoagulant LA PTT Baseline POC ABG pH POC ABG pCO2 POC ABG pO2 Sodium Potassium Chloride Carbon Dioxide BUN Creatinine Glucose POC Glucose < 40 L 63 L < 40 L Lactic Acid Uric Acid Calcium Phosphorus Iron TIBC Ferritin Total Bilirubin Direct Bilirubin AST ALT Alkaline Phosphatase Lactate Dehydrogenase C-Reactive Protein Serum Total Protein Total Protein Albumin Engrb-2-Hpqitqsvr Abnorm Protein Band 1 PEP Interpretation Crossmatch 10/14/16 10/14/16 10/14/16 09:58 09:58 09:58 WBC RBC Hgb Hct MCV MCHC RDW Plt Count Seg Neuts % (Manual) Lymphocytes % (Manual) Nucleated RBC % Seg Neutrophils # Man Lymphocytes # (Manual) Haptoglobin 218 H PT INR Fibrinogen 557 H Lupus Anticoagulant LA PTT Baseline POC ABG pH POC ABG pCO2 POC ABG pO2 Sodium Potassium Chloride Carbon Dioxide BUN Creatinine Glucose POC Glucose Lactic Acid Uric Acid Calcium Phosphorus Iron TIBC Ferritin Total Bilirubin 1.30 H Direct Bilirubin 1.1 H AST ALT Alkaline Phosphatase Lactate Dehydrogenase C-Reactive Protein Serum Total Protein Total Protein Albumin Nujjx-3-Bfalgdkdd Abnorm Protein Band 1 PEP Interpretation Crossmatch 10/14/16 10/14/16 10/14/16 10:57 11:15 12:52 WBC RBC Hgb Hct MCV MCHC RDW Plt Count Seg Neuts % (Manual) Lymphocytes % (Manual) Nucleated RBC % Seg Neutrophils # Man Lymphocytes # (Manual) Haptoglobin PT INR Fibrinogen Lupus Anticoagulant LA PTT Baseline POC ABG pH POC ABG pCO2 POC ABG pO2 Sodium Potassium Chloride Carbon Dioxide BUN Creatinine Glucose POC Glucose < 40 L < 40 L Lactic Acid 9.60 H* Uric Acid Calcium Phosphorus Iron TIBC Ferritin Total Bilirubin Direct Bilirubin AST ALT Alkaline Phosphatase Lactate Dehydrogenase C-Reactive Protein Serum Total Protein Total Protein Albumin Hnxos-2-Xytggchfa Abnorm Protein Band 1 PEP Interpretation Crossmatch 10/14/16 10/14/16 10/14/16 12:52 13:17 14:12 WBC RBC Hgb Hct MCV MCHC RDW Plt Count Seg Neuts % (Manual) Lymphocytes % (Manual) Nucleated RBC % Seg Neutrophils # Man Lymphocytes # (Manual) Haptoglobin PT INR Fibrinogen Lupus Anticoagulant LA PTT Baseline POC ABG pH POC ABG pCO2 POC ABG pO2 Sodium Potassium Chloride Carbon Dioxide BUN Creatinine Glucose POC Glucose < 40 L < 40 L Lactic Acid Uric Acid Calcium Phosphorus Iron TIBC Ferritin Total Bilirubin Direct Bilirubin AST ALT Alkaline Phosphatase Lactate Dehydrogenase C-Reactive Protein 40.40 H Serum Total Protein Total Protein Albumin Gbynt-4-Hhemesapd Abnorm Protein Band 1 PEP Interpretation Crossmatch 10/14/16 10/14/16 10/14/16 15:02 15:33 15:33 WBC RBC Hgb Hct MCV MCHC RDW Plt Count Seg Neuts % (Manual) Lymphocytes % (Manual) Nucleated RBC % Seg Neutrophils # Man Lymphocytes # (Manual) Haptoglobin PT INR Fibrinogen Lupus Anticoagulant LA PTT Baseline POC ABG pH POC ABG pCO2 POC ABG pO2 Sodium Potassium Chloride Carbon Dioxide BUN Creatinine Glucose 19 L* POC Glucose < 40 L Lactic Acid 11.60 H* Uric Acid Calcium Phosphorus Iron TIBC Ferritin Total Bilirubin Direct Bilirubin AST ALT Alkaline Phosphatase Lactate Dehydrogenase C-Reactive Protein Serum Total Protein Total Protein Albumin Yqtbe-7-Qtdtoxqry Abnorm Protein Band 1 PEP Interpretation Crossmatch 10/14/16 10/14/16 10/14/16 17:14 18:03 21:25 WBC RBC Hgb Hct MCV MCHC RDW Plt Count Seg Neuts % (Manual) Lymphocytes % (Manual) Nucleated RBC % Seg Neutrophils # Man Lymphocytes # (Manual) Haptoglobin PT 28.9 H INR 2.71 H Fibrinogen Lupus Anticoagulant LA PTT Baseline POC ABG pH POC ABG pCO2 POC ABG pO2 Sodium Potassium Chloride Carbon Dioxide BUN Creatinine Glucose POC Glucose < 40 L 57 L Lactic Acid Uric Acid Calcium Phosphorus Iron TIBC Ferritin Total Bilirubin Direct Bilirubin AST ALT Alkaline Phosphatase Lactate Dehydrogenase C-Reactive Protein Serum Total Protein Total Protein Albumin Pjijz-3-Hqsdmqpxq Abnorm Protein Band 1 PEP Interpretation Crossmatch 10/15/16 10/15/16 10/15/16 05:32 05:35 05:35 WBC RBC 2.62 L Hgb 8.1 L Hct 25.8 L MCV 98 H D MCHC 31 L RDW 21.2 H Plt Count 61 L Seg Neuts % (Manual) 27.0 L Lymphocytes % (Manual) 10.0 L Nucleated RBC % 2.0 H Seg Neutrophils # Man Lymphocytes # (Manual) 0.8 L Haptoglobin PT INR Fibrinogen Lupus Anticoagulant LA PTT Baseline POC ABG pH POC ABG pCO2 POC ABG pO2 Sodium Potassium Chloride Carbon Dioxide BUN Creatinine Glucose POC Glucose < 40 L Lactic Acid Uric Acid Calcium Phosphorus Iron TIBC Ferritin Total Bilirubin Direct Bilirubin AST ALT Alkaline Phosphatase Lactate Dehydrogenase 3871 H C-Reactive Protein Serum Total Protein Total Protein Albumin Qxets-6-Qrpivvfmz Abnorm Protein Band 1 PEP Interpretation Crossmatch 10/15/16 10/15/16 10/15/16 05:35 05:35 05:35 WBC RBC Hgb Hct MCV MCHC RDW Plt Count Seg Neuts % (Manual) Lymphocytes % (Manual) Nucleated RBC % Seg Neutrophils # Man Lymphocytes # (Manual) Haptoglobin PT INR Fibrinogen Lupus Anticoagulant LA PTT Baseline POC ABG pH POC ABG pCO2 POC ABG pO2 Sodium 136 L Potassium 5.3 H D Chloride 91.4 L Carbon Dioxide 6 L* D BUN 57 H Creatinine 7.1 H Glucose 11 L* POC Glucose Lactic Acid 13.60 H* Uric Acid Calcium 7.7 L Phosphorus 10.10 H D Iron TIBC 166 L Ferritin 9562.0 H Total Bilirubin Direct Bilirubin AST ALT Alkaline Phosphatase Lactate Dehydrogenase C-Reactive Protein Serum Total Protein Total Protein Albumin Lkwhp-1-Gzpuwmzxd Abnorm Protein Band 1 PEP Interpretation Crossmatch 10/15/16 10/15/16 10/15/16 05:51 06:22 06:52 WBC RBC Hgb Hct MCV MCHC RDW Plt Count Seg Neuts % (Manual) Lymphocytes % (Manual) Nucleated RBC % Seg Neutrophils # Man Lymphocytes # (Manual) Haptoglobin PT INR Fibrinogen Lupus Anticoagulant LA PTT Baseline POC ABG pH 7.189 L POC ABG pCO2 28.9 L POC ABG pO2 Sodium Potassium Chloride Carbon Dioxide BUN Creatinine Glucose POC Glucose 59 L 111 H Lactic Acid Uric Acid Calcium Phosphorus Iron TIBC Ferritin Total Bilirubin Direct Bilirubin AST ALT Alkaline Phosphatase Lactate Dehydrogenase C-Reactive Protein Serum Total Protein Total Protein Albumin Dhgqp-9-Purqfjlts Abnorm Protein Band 1 PEP Interpretation Crossmatch 10/15/16 10/15/16 10/15/16 08:00 09:57 11:42 WBC RBC Hgb Hct MCV MCHC RDW Plt Count Seg Neuts % (Manual) Lymphocytes % (Manual) Nucleated RBC % Seg Neutrophils # Man Lymphocytes # (Manual) Haptoglobin PT INR Fibrinogen Lupus Anticoagulant LA PTT Baseline POC ABG pH POC ABG pCO2 POC ABG pO2 Sodium Potassium Chloride Carbon Dioxide BUN Creatinine Glucose POC Glucose 63 L 143 H 203 H Lactic Acid Uric Acid Calcium Phosphorus Iron TIBC Ferritin Total Bilirubin Direct Bilirubin AST ALT Alkaline Phosphatase Lactate Dehydrogenase C-Reactive Protein Serum Total Protein Total Protein Albumin Xrvvb-6-Tbnckkqiz Abnorm Protein Band 1 PEP Interpretation Crossmatch 10/15/16 10/15/16 10/15/16 12:00 12:00 13:00 WBC RBC Hgb Hct MCV MCHC RDW Plt Count Seg Neuts % (Manual) Lymphocytes % (Manual) Nucleated RBC % Seg Neutrophils # Man Lymphocytes # (Manual) Haptoglobin <15 L PT INR Fibrinogen Lupus Anticoagulant LA PTT Baseline POC ABG pH POC ABG pCO2 POC ABG pO2 Sodium Potassium Chloride Carbon Dioxide BUN Creatinine Glucose POC Glucose 136 H Lactic Acid 16.30 H* Uric Acid Calcium Phosphorus Iron TIBC Ferritin Total Bilirubin Direct Bilirubin AST ALT Alkaline Phosphatase Lactate Dehydrogenase C-Reactive Protein Serum Total Protein Total Protein Albumin Lvafi-9-Kkqiwpamo Abnorm Protein Band 1 PEP Interpretation Crossmatch 10/15/16 10/15/16 10/15/16 14:06 15:15 16:23 WBC RBC Hgb Hct MCV MCHC RDW Plt Count Seg Neuts % (Manual) Lymphocytes % (Manual) Nucleated RBC % Seg Neutrophils # Man Lymphocytes # (Manual) Haptoglobin PT INR Fibrinogen Lupus Anticoagulant LA PTT Baseline POC ABG pH POC ABG pCO2 POC ABG pO2 Sodium Potassium Chloride Carbon Dioxide BUN Creatinine Glucose POC Glucose 132 H 64 L Lactic Acid 20.40 H* Uric Acid Calcium Phosphorus Iron TIBC Ferritin Total Bilirubin Direct Bilirubin AST ALT Alkaline Phosphatase Lactate Dehydrogenase C-Reactive Protein Serum Total Protein Total Protein Albumin Uesqw-6-Bsjefzhsm Abnorm Protein Band 1 PEP Interpretation Crossmatch 10/15/16 10/15/16 10/15/16 16:40 17:00 17:10 WBC RBC Hgb Hct MCV MCHC RDW Plt Count Seg Neuts % (Manual) Lymphocytes % (Manual) Nucleated RBC % Seg Neutrophils # Man Lymphocytes # (Manual) Haptoglobin PT INR Fibrinogen Lupus Anticoagulant LA PTT Baseline POC ABG pH 7.323 L POC ABG pCO2 25.8 L POC ABG pO2 135 H Sodium Potassium Chloride Carbon Dioxide BUN Creatinine Glucose POC Glucose 159 H Lactic Acid 20.20 H* Uric Acid Calcium Phosphorus Iron TIBC Ferritin Total Bilirubin Direct Bilirubin AST ALT Alkaline Phosphatase Lactate Dehydrogenase C-Reactive Protein Serum Total Protein Total Protein Albumin Fjnuo-0-Wvfcaogyj Abnorm Protein Band 1 PEP Interpretation Crossmatch 10/15/16 10/15/16 10/15/16 17:46 17:53 18:45 WBC RBC Hgb Hct MCV MCHC RDW Plt Count Seg Neuts % (Manual) Lymphocytes % (Manual) Nucleated RBC % Seg Neutrophils # Man Lymphocytes # (Manual) Haptoglobin PT INR Fibrinogen Lupus Anticoagulant LA PTT Baseline POC ABG pH POC ABG pCO2 POC ABG pO2 Sodium Potassium Chloride Carbon Dioxide BUN Creatinine Glucose POC Glucose 126 H 143 H Lactic Acid 21.40 H* Uric Acid Calcium Phosphorus Iron TIBC Ferritin Total Bilirubin Direct Bilirubin AST ALT Alkaline Phosphatase Lactate Dehydrogenase C-Reactive Protein Serum Total Protein Total Protein Albumin Yngrt-3-Eiyzlqehg Abnorm Protein Band 1 PEP Interpretation Crossmatch 10/15/16 10/15/16 10/16/16 20:03 22:59 00:06 WBC RBC Hgb Hct MCV MCHC RDW Plt Count Seg Neuts % (Manual) Lymphocytes % (Manual) Nucleated RBC % Seg Neutrophils # Man Lymphocytes # (Manual) Haptoglobin PT INR Fibrinogen Lupus Anticoagulant LA PTT Baseline POC ABG pH POC ABG pCO2 POC ABG pO2 Sodium Potassium Chloride Carbon Dioxide BUN Creatinine Glucose POC Glucose 66 L 53 L 126 H Lactic Acid Uric Acid Calcium Phosphorus Iron TIBC Ferritin Total Bilirubin Direct Bilirubin AST ALT Alkaline Phosphatase Lactate Dehydrogenase C-Reactive Protein Serum Total Protein Total Protein Albumin Ymaco-7-Xzhjskixn Abnorm Protein Band 1 PEP Interpretation Crossmatch 10/16/16 10/16/16 10/16/16 01:03 03:55 04:00 WBC RBC Hgb Hct MCV MCHC RDW Plt Count Seg Neuts % (Manual) Lymphocytes % (Manual) Nucleated RBC % Seg Neutrophils # Man Lymphocytes # (Manual) Haptoglobin PT INR Fibrinogen Lupus Anticoagulant LA PTT Baseline POC ABG pH POC ABG pCO2 POC ABG pO2 Sodium Potassium Chloride Carbon Dioxide BUN Creatinine Glucose POC Glucose 107 H 260 H Lactic Acid 18.00 H* Uric Acid Calcium Phosphorus Iron TIBC Ferritin Total Bilirubin Direct Bilirubin AST ALT Alkaline Phosphatase Lactate Dehydrogenase C-Reactive Protein Serum Total Protein Total Protein Albumin Jgukm-1-Qszgobpfm Abnorm Protein Band 1 PEP Interpretation Crossmatch 10/16/16 10/16/16 10/16/16 04:03 07:58 08:34 WBC RBC Hgb Hct MCV MCHC RDW Plt Count Seg Neuts % (Manual) Lymphocytes % (Manual) Nucleated RBC % Seg Neutrophils # Man Lymphocytes # (Manual) Haptoglobin PT INR Fibrinogen Lupus Anticoagulant LA PTT Baseline POC ABG pH 7.527 H POC ABG pCO2 32.9 L POC ABG pO2 119 H Sodium Potassium Chloride Carbon Dioxide BUN Creatinine Glucose POC Glucose 120 H 66 L Lactic Acid Uric Acid Calcium Phosphorus Iron TIBC Ferritin Total Bilirubin Direct Bilirubin AST ALT Alkaline Phosphatase Lactate Dehydrogenase C-Reactive Protein Serum Total Protein Total Protein Albumin Mwdcw-0-Urrsyrnnq Abnorm Protein Band 1 PEP Interpretation Crossmatch 10/16/16 10/16/16 10/16/16 09:13 10:06 10:57 WBC RBC Hgb Hct MCV MCHC RDW Plt Count Seg Neuts % (Manual) Lymphocytes % (Manual) Nucleated RBC % Seg Neutrophils # Man Lymphocytes # (Manual) Haptoglobin PT INR Fibrinogen Lupus Anticoagulant LA PTT Baseline POC ABG pH POC ABG pCO2 POC ABG pO2 Sodium Potassium Chloride Carbon Dioxide BUN Creatinine Glucose POC Glucose 147 H 137 H 140 H Lactic Acid Uric Acid Calcium Phosphorus Iron TIBC Ferritin Total Bilirubin Direct Bilirubin AST ALT Alkaline Phosphatase Lactate Dehydrogenase C-Reactive Protein Serum Total Protein Total Protein Albumin Bllaz-5-Enpqyrflv Abnorm Protein Band 1 PEP Interpretation Crossmatch 10/16/16 10/16/16 10/16/16 11:15 11:15 11:15 WBC 25.8 H RBC 2.30 L Hgb 7.0 L Hct 22.3 L MCV 97 H MCHC 31 L RDW 21.2 H Plt Count 42 L Seg Neuts % (Manual) Lymphocytes % (Manual) 3.0 L Nucleated RBC % 2.0 H Seg Neutrophils # Man 11.1 H Lymphocytes # (Manual) 0.8 L Haptoglobin PT INR Fibrinogen Lupus Anticoagulant LA PTT Baseline POC ABG pH POC ABG pCO2 POC ABG pO2 Sodium Potassium Chloride 81.7 L Carbon Dioxide 13 L D BUN 61 H Creatinine 6.2 H Glucose 171 H POC Glucose Lactic Acid 22.70 H* Uric Acid Calcium 7.1 L Phosphorus 9.10 H Iron TIBC Ferritin Total Bilirubin Direct Bilirubin AST ALT Alkaline Phosphatase Lactate Dehydrogenase C-Reactive Protein Serum Total Protein Total Protein Albumin Ojuvl-9-Stijyoyrs Abnorm Protein Band 1 PEP Interpretation Crossmatch 10/16/16 10/16/16 10/16/16 15:10 15:50 18:11 WBC RBC Hgb Hct MCV MCHC RDW Plt Count Seg Neuts % (Manual) Lymphocytes % (Manual) Nucleated RBC % Seg Neutrophils # Man Lymphocytes # (Manual) Haptoglobin PT INR Fibrinogen Lupus Anticoagulant LA PTT Baseline POC ABG pH POC ABG pCO2 POC ABG pO2 Sodium Potassium Chloride Carbon Dioxide BUN Creatinine Glucose POC Glucose 47 L 164 H 58 L Lactic Acid Uric Acid Calcium Phosphorus Iron TIBC Ferritin Total Bilirubin Direct Bilirubin AST ALT Alkaline Phosphatase Lactate Dehydrogenase C-Reactive Protein Serum Total Protein Total Protein Albumin Wjoih-0-Vplfbbzjs Abnorm Protein Band 1 PEP Interpretation Crossmatch 10/16/16 10/16/16 10/17/16 18:26 21:06 00:06 WBC RBC Hgb Hct MCV MCHC RDW Plt Count Seg Neuts % (Manual) Lymphocytes % (Manual) Nucleated RBC % Seg Neutrophils # Man Lymphocytes # (Manual) Haptoglobin PT INR Fibrinogen Lupus Anticoagulant LA PTT Baseline POC ABG pH POC ABG pCO2 POC ABG pO2 489 H Sodium Potassium Chloride Carbon Dioxide BUN Creatinine Glucose POC Glucose 52 L 120 H Lactic Acid Uric Acid Calcium Phosphorus Iron TIBC Ferritin Total Bilirubin Direct Bilirubin AST ALT Alkaline Phosphatase Lactate Dehydrogenase C-Reactive Protein Serum Total Protein Total Protein Albumin Zrzkd-2-Viikxdabn Abnorm Protein Band 1 PEP Interpretation Crossmatch 10/17/16 10/17/16 10/17/16 04:55 04:55 05:04 WBC 25.5 H RBC 2.23 L Hgb 6.6 L Hct 21.2 L MCV 95 H MCHC 31 L RDW 20.5 H Plt Count 35 L Seg Neuts % (Manual) 79.0 H Lymphocytes % (Manual) 0 L Nucleated RBC % Seg Neutrophils # Man 20.1 H Lymphocytes # (Manual) 0.0 L Haptoglobin PT INR Fibrinogen Lupus Anticoagulant LA PTT Baseline POC ABG pH POC ABG pCO2 27.2 L POC ABG pO2 162 H Sodium Potassium Chloride 91.5 L Carbon Dioxide 16 L BUN 45 H Creatinine 4.5 H Glucose 103 H POC Glucose Lactic Acid Uric Acid Calcium 6.9 L Phosphorus 5.80 H D Iron TIBC Ferritin Total Bilirubin Direct Bilirubin AST ALT Alkaline Phosphatase Lactate Dehydrogenase C-Reactive Protein Serum Total Protein Total Protein Albumin Lthjk-2-Ipnqasqkw Abnorm Protein Band 1 PEP Interpretation Crossmatch 10/17/16 10/17/16 10/17/16 07:59 09:04 10:04 WBC RBC Hgb Hct MCV MCHC RDW Plt Count Seg Neuts % (Manual) Lymphocytes % (Manual) Nucleated RBC % Seg Neutrophils # Man Lymphocytes # (Manual) Haptoglobin PT INR Fibrinogen Lupus Anticoagulant LA PTT Baseline POC ABG pH POC ABG pCO2 POC ABG pO2 Sodium Potassium Chloride Carbon Dioxide BUN Creatinine Glucose POC Glucose 65 L 118 H Lactic Acid Uric Acid Calcium Phosphorus Iron TIBC Ferritin Total Bilirubin Direct Bilirubin AST ALT Alkaline Phosphatase Lactate Dehydrogenase C-Reactive Protein Serum Total Protein Total Protein Albumin Sghzt-2-Rpamslljq Abnorm Protein Band 1 PEP Interpretation Crossmatch See Detail 10/17/16 10/17/16 10/17/16 11:52 13:08 15:42 WBC RBC Hgb Hct MCV MCHC RDW Plt Count Seg Neuts % (Manual) Lymphocytes % (Manual) Nucleated RBC % Seg Neutrophils # Man Lymphocytes # (Manual) Haptoglobin PT INR Fibrinogen Lupus Anticoagulant LA PTT Baseline POC ABG pH POC ABG pCO2 POC ABG pO2 Sodium Potassium Chloride Carbon Dioxide BUN Creatinine Glucose POC Glucose 125 H 106 H 55 L Lactic Acid Uric Acid Calcium Phosphorus Iron TIBC Ferritin Total Bilirubin Direct Bilirubin AST ALT Alkaline Phosphatase Lactate Dehydrogenase C-Reactive Protein Serum Total Protein Total Protein Albumin Effrx-4-Fboztiuck Abnorm Protein Band 1 PEP Interpretation Crossmatch 10/17/16 10/17/16 10/17/16 17:39 20:37 21:02 WBC RBC Hgb Hct MCV MCHC RDW Plt Count Seg Neuts % (Manual) Lymphocytes % (Manual) Nucleated RBC % Seg Neutrophils # Man Lymphocytes # (Manual) Haptoglobin PT INR Fibrinogen Lupus Anticoagulant LA PTT Baseline POC ABG pH POC ABG pCO2 28.2 L POC ABG pO2 Sodium Potassium Chloride Carbon Dioxide BUN Creatinine Glucose POC Glucose < 40 L 106 H Lactic Acid Uric Acid Calcium Phosphorus Iron TIBC Ferritin Total Bilirubin Direct Bilirubin AST ALT Alkaline Phosphatase Lactate Dehydrogenase C-Reactive Protein Serum Total Protein Total Protein Albumin Wdlqw-4-Emisnxucw Abnorm Protein Band 1 PEP Interpretation Crossmatch 10/17/16 10/17/16 10/18/16 22:18 23:14 00:28 WBC RBC Hgb Hct MCV MCHC RDW Plt Count Seg Neuts % (Manual) Lymphocytes % (Manual) Nucleated RBC % Seg Neutrophils # Man Lymphocytes # (Manual) Haptoglobin PT INR Fibrinogen Lupus Anticoagulant LA PTT Baseline POC ABG pH POC ABG pCO2 POC ABG pO2 Sodium Potassium Chloride Carbon Dioxide BUN Creatinine Glucose POC Glucose 111 H 118 H 112 H Lactic Acid Uric Acid Calcium Phosphorus Iron TIBC Ferritin Total Bilirubin Direct Bilirubin AST ALT Alkaline Phosphatase Lactate Dehydrogenase C-Reactive Protein Serum Total Protein Total Protein Albumin Mywbr-6-Qvniwzpzb Abnorm Protein Band 1 PEP Interpretation Crossmatch 10/18/16 10/18/16 10/18/16 05:00 05:00 05:15 WBC 27.3 H RBC 2.75 L Hgb 7.9 L Hct 25.3 L MCV MCHC 31 L RDW 20.7 H Plt Count 31 L Seg Neuts % (Manual) 87.0 H Lymphocytes % (Manual) 1.0 L Nucleated RBC % 1.0 H Seg Neutrophils # Man 23.8 H Lymphocytes # (Manual) 0.3 L Haptoglobin PT INR Fibrinogen Lupus Anticoagulant LA PTT Baseline POC ABG pH 7.466 H POC ABG pCO2 25.1 L POC ABG pO2 Sodium Potassium Chloride 88.7 L Carbon Dioxide 18 L BUN 66 H Creatinine 4.7 H Glucose POC Glucose Lactic Acid Uric Acid Calcium 6.1 L Phosphorus 7.30 H D Iron TIBC Ferritin Total Bilirubin Direct Bilirubin AST ALT Alkaline Phosphatase Lactate Dehydrogenase C-Reactive Protein Serum Total Protein Total Protein Albumin Janbg-9-Xeujjjlfj Abnorm Protein Band 1 PEP Interpretation Crossmatch 10/18/16 10/18/16 10/18/16 07:15 07:44 09:07 WBC RBC Hgb Hct MCV MCHC RDW Plt Count Seg Neuts % (Manual) Lymphocytes % (Manual) Nucleated RBC % Seg Neutrophils # Man Lymphocytes # (Manual) Haptoglobin PT INR Fibrinogen Lupus Anticoagulant LA PTT Baseline POC ABG pH POC ABG pCO2 POC ABG pO2 Sodium Potassium Chloride Carbon Dioxide BUN Creatinine Glucose POC Glucose 64 L 156 H 117 H Lactic Acid Uric Acid Calcium Phosphorus Iron TIBC Ferritin Total Bilirubin Direct Bilirubin AST ALT Alkaline Phosphatase Lactate Dehydrogenase C-Reactive Protein Serum Total Protein Total Protein Albumin Hddbi-5-Fecscvmzu Abnorm Protein Band 1 PEP Interpretation Crossmatch 10/18/16 10/18/16 10/18/16 09:15 14:00 18:21 WBC RBC Hgb Hct MCV MCHC RDW Plt Count Seg Neuts % (Manual) Lymphocytes % (Manual) Nucleated RBC % Seg Neutrophils # Man Lymphocytes # (Manual) Haptoglobin PT INR Fibrinogen Lupus Anticoagulant LA PTT Baseline POC ABG pH POC ABG pCO2 POC ABG pO2 Sodium Potassium Chloride Carbon Dioxide BUN Creatinine Glucose POC Glucose 106 H 112 H Lactic Acid 14.30 H* Uric Acid Calcium Phosphorus Iron TIBC Ferritin Total Bilirubin Direct Bilirubin AST ALT Alkaline Phosphatase Lactate Dehydrogenase C-Reactive Protein Serum Total Protein Total Protein Albumin Jfady-8-Rvtbotsuc Abnorm Protein Band 1 PEP Interpretation Crossmatch 10/18/16 10/18/16 10/18/16 19:58 20:55 22:11 WBC RBC Hgb Hct MCV MCHC RDW Plt Count Seg Neuts % (Manual) Lymphocytes % (Manual) Nucleated RBC % Seg Neutrophils # Man Lymphocytes # (Manual) Haptoglobin PT INR Fibrinogen Lupus Anticoagulant LA PTT Baseline POC ABG pH POC ABG pCO2 POC ABG pO2 Sodium Potassium Chloride Carbon Dioxide BUN Creatinine Glucose POC Glucose 127 H 125 H 159 H Lactic Acid Uric Acid Calcium Phosphorus Iron TIBC Ferritin Total Bilirubin Direct Bilirubin AST ALT Alkaline Phosphatase Lactate Dehydrogenase C-Reactive Protein Serum Total Protein Total Protein Albumin Brpew-3-Yuqukjaqu Abnorm Protein Band 1 PEP Interpretation Crossmatch 10/18/16 10/18/16 10/19/16 23:11 23:57 01:06 WBC RBC Hgb Hct MCV MCHC RDW Plt Count Seg Neuts % (Manual) Lymphocytes % (Manual) Nucleated RBC % Seg Neutrophils # Man Lymphocytes # (Manual) Haptoglobin PT INR Fibrinogen Lupus Anticoagulant LA PTT Baseline POC ABG pH POC ABG pCO2 POC ABG pO2 Sodium Potassium Chloride Carbon Dioxide BUN Creatinine Glucose POC Glucose 122 H 137 H 162 H Lactic Acid Uric Acid Calcium Phosphorus Iron TIBC Ferritin Total Bilirubin Direct Bilirubin AST ALT Alkaline Phosphatase Lactate Dehydrogenase C-Reactive Protein Serum Total Protein Total Protein Albumin Aijyt-6-Vkdezjvfy Abnorm Protein Band 1 PEP Interpretation Crossmatch 10/19/16 10/19/16 10/19/16 01:59 03:07 04:10 WBC RBC Hgb Hct MCV MCHC RDW Plt Count Seg Neuts % (Manual) Lymphocytes % (Manual) Nucleated RBC % Seg Neutrophils # Man Lymphocytes # (Manual) Haptoglobin PT INR Fibrinogen Lupus Anticoagulant LA PTT Baseline POC ABG pH POC ABG pCO2 POC ABG pO2 Sodium Potassium Chloride Carbon Dioxide BUN Creatinine Glucose POC Glucose 154 H 178 H 186 H Lactic Acid Uric Acid Calcium Phosphorus Iron TIBC Ferritin Total Bilirubin Direct Bilirubin AST ALT Alkaline Phosphatase Lactate Dehydrogenase C-Reactive Protein Serum Total Protein Total Protein Albumin Adour-5-Glliwerrw Abnorm Protein Band 1 PEP Interpretation Crossmatch 10/19/16 10/19/16 10/19/16 05:14 05:15 05:47 WBC RBC Hgb Hct MCV MCHC RDW Plt Count Seg Neuts % (Manual) Lymphocytes % (Manual) Nucleated RBC % Seg Neutrophils # Man Lymphocytes # (Manual) Haptoglobin PT INR Fibrinogen Lupus Anticoagulant LA PTT Baseline POC ABG pH 7.581 H POC ABG pCO2 22.9 L POC ABG pO2 58 L Sodium Potassium Chloride Carbon Dioxide BUN Creatinine Glucose POC Glucose 197 H 204 H Lactic Acid Uric Acid Calcium Phosphorus Iron TIBC Ferritin Total Bilirubin Direct Bilirubin AST ALT Alkaline Phosphatase Lactate Dehydrogenase C-Reactive Protein Serum Total Protein Total Protein Albumin Lfjnt-8-Fzixangqr Abnorm Protein Band 1 PEP Interpretation Crossmatch 10/19/16 10/19/16 10/19/16 06:00 06:00 07:51 WBC 23.0 H RBC 2.54 L Hgb 7.5 L Hct 23.0 L MCV MCHC RDW 20.7 H Plt Count 25 L Seg Neuts % (Manual) 91.0 H Lymphocytes % (Manual) 2.0 L Nucleated RBC % 1.0 H Seg Neutrophils # Man 20.9 H Lymphocytes # (Manual) 0.5 L Haptoglobin PT INR Fibrinogen Lupus Anticoagulant LA PTT Baseline POC ABG pH POC ABG pCO2 POC ABG pO2 Sodium Potassium Chloride 88.7 L Carbon Dioxide 21 L BUN 70 H Creatinine 3.9 H Glucose 189 H POC Glucose 145 H Lactic Acid Uric Acid Calcium 5.6 L* Phosphorus 6.30 H Iron TIBC Ferritin Total Bilirubin Direct Bilirubin AST ALT Alkaline Phosphatase Lactate Dehydrogenase C-Reactive Protein Serum Total Protein Total Protein Albumin Kwhlb-5-Nudsxvoco Abnorm Protein Band 1 PEP Interpretation Crossmatch 10/19/16 10/19/16 10/19/16 09:14 10:01 12:14 WBC RBC Hgb Hct MCV MCHC RDW Plt Count Seg Neuts % (Manual) Lymphocytes % (Manual) Nucleated RBC % Seg Neutrophils # Man Lymphocytes # (Manual) Haptoglobin PT INR Fibrinogen Lupus Anticoagulant LA PTT Baseline POC ABG pH POC ABG pCO2 POC ABG pO2 Sodium Potassium Chloride Carbon Dioxide BUN Creatinine Glucose POC Glucose 173 H 153 H 180 H Lactic Acid Uric Acid Calcium Phosphorus Iron TIBC Ferritin Total Bilirubin Direct Bilirubin AST ALT Alkaline Phosphatase Lactate Dehydrogenase C-Reactive Protein Serum Total Protein Total Protein Albumin Xvtgu-5-Dullecyfo Abnorm Protein Band 1 PEP Interpretation Crossmatch 10/19/16 10/19/16 10/19/16 16:38 20:27 23:27 WBC RBC Hgb Hct MCV MCHC RDW Plt Count Seg Neuts % (Manual) Lymphocytes % (Manual) Nucleated RBC % Seg Neutrophils # Man Lymphocytes # (Manual) Haptoglobin PT INR Fibrinogen Lupus Anticoagulant LA PTT Baseline POC ABG pH POC ABG pCO2 POC ABG pO2 Sodium Potassium Chloride Carbon Dioxide BUN Creatinine Glucose POC Glucose 194 H 202 H 201 H Lactic Acid Uric Acid Calcium Phosphorus Iron TIBC Ferritin Total Bilirubin Direct Bilirubin AST ALT Alkaline Phosphatase Lactate Dehydrogenase C-Reactive Protein Serum Total Protein Total Protein Albumin Rswyp-1-Gfxxxzjxt Abnorm Protein Band 1 PEP Interpretation Crossmatch 10/20/16 10/20/16 10/20/16 04:06 05:00 05:16 WBC RBC Hgb Hct MCV MCHC RDW Plt Count Seg Neuts % (Manual) Lymphocytes % (Manual) Nucleated RBC % Seg Neutrophils # Man Lymphocytes # (Manual) Haptoglobin PT INR Fibrinogen Lupus Anticoagulant LA PTT Baseline POC ABG pH 7.463 H POC ABG pCO2 POC ABG pO2 157 H Sodium Potassium Chloride 88.8 L Carbon Dioxide BUN 93 H Creatinine 4.3 H Glucose 204 H POC Glucose 200 H Lactic Acid Uric Acid Calcium 5.2 L* Phosphorus Iron TIBC Ferritin Total Bilirubin Direct Bilirubin AST ALT Alkaline Phosphatase Lactate Dehydrogenase C-Reactive Protein Serum Total Protein Total Protein Albumin Lpcnj-2-Onjyccvsf Abnorm Protein Band 1 PEP Interpretation Crossmatch 10/20/16 10/20/16 10/20/16 06:00 07:43 12:11 WBC 24.8 H RBC 2.52 L Hgb 7.4 L Hct 22.9 L MCV MCHC RDW 19.9 H Plt Count 23 L Seg Neuts % (Manual) 97.0 H Lymphocytes % (Manual) 1.0 L Nucleated RBC % 9.0 H Seg Neutrophils # Man 24.1 H Lymphocytes # (Manual) 0.2 L Haptoglobin PT INR Fibrinogen Lupus Anticoagulant LA PTT Baseline POC ABG pH POC ABG pCO2 POC ABG pO2 Sodium Potassium Chloride Carbon Dioxide BUN Creatinine Glucose POC Glucose 192 H 172 H Lactic Acid Uric Acid Calcium Phosphorus Iron TIBC Ferritin Total Bilirubin Direct Bilirubin AST ALT Alkaline Phosphatase Lactate Dehydrogenase C-Reactive Protein Serum Total Protein Total Protein Albumin Tbpmj-7-Likzvufti Abnorm Protein Band 1 PEP Interpretation Crossmatch 10/20/16 10/20/16 10/20/16 15:32 21:23 23:49 WBC RBC Hgb Hct MCV MCHC RDW Plt Count Seg Neuts % (Manual) Lymphocytes % (Manual) Nucleated RBC % Seg Neutrophils # Man Lymphocytes # (Manual) Haptoglobin PT INR Fibrinogen Lupus Anticoagulant LA PTT Baseline POC ABG pH POC ABG pCO2 POC ABG pO2 Sodium Potassium Chloride Carbon Dioxide BUN Creatinine Glucose POC Glucose 216 H 271 H 317 H Lactic Acid Uric Acid Calcium Phosphorus Iron TIBC Ferritin Total Bilirubin Direct Bilirubin AST ALT Alkaline Phosphatase Lactate Dehydrogenase C-Reactive Protein Serum Total Protein Total Protein Albumin Ziqlw-6-Cfanovsri Abnorm Protein Band 1 PEP Interpretation Crossmatch 10/21/16 10/21/16 10/21/16 03:53 04:58 05:25 WBC RBC Hgb Hct MCV MCHC RDW Plt Count Seg Neuts % (Manual) Lymphocytes % (Manual) Nucleated RBC % Seg Neutrophils # Man Lymphocytes # (Manual) Haptoglobin PT INR Fibrinogen Lupus Anticoagulant LA PTT Baseline POC ABG pH 7.459 H POC ABG pCO2 POC ABG pO2 113 H Sodium 136 L Potassium 2.8 L* D Chloride 91.6 L Carbon Dioxide BUN 62 H Creatinine 2.8 H Glucose 236 H POC Glucose 237 H Lactic Acid Uric Acid Calcium 6.2 L D Phosphorus Iron TIBC Ferritin Total Bilirubin 2.70 H Direct Bilirubin AST 73 H ALT 57 H Alkaline Phosphatase 158 H Lactate Dehydrogenase C-Reactive Protein Serum Total Protein Total Protein 4.9 L Albumin 2.6 L Hplun-1-Vhswiaeev Abnorm Protein Band 1 PEP Interpretation Crossmatch 10/21/16 10/21/16 10/21/16 07:11 10:30 11:25 WBC 28.1 H RBC 2.36 L Hgb 7.0 L Hct 21.6 L MCV MCHC RDW 20.0 H Plt Count 14 L* Seg Neuts % (Manual) 92.0 H Lymphocytes % (Manual) 0 L Nucleated RBC % 5.0 H Seg Neutrophils # Man 25.9 H Lymphocytes # (Manual) 0.0 L Haptoglobin PT 49.1 H INR 5.28 H* Fibrinogen Lupus Anticoagulant LA PTT Baseline POC ABG pH POC ABG pCO2 POC ABG pO2 Sodium Potassium Chloride Carbon Dioxide BUN Creatinine Glucose POC Glucose 206 H Lactic Acid Uric Acid Calcium Phosphorus Iron TIBC Ferritin Total Bilirubin Direct Bilirubin AST ALT Alkaline Phosphatase Lactate Dehydrogenase C-Reactive Protein Serum Total Protein Total Protein Albumin Rpspf-2-Opxougjqk Abnorm Protein Band 1 PEP Interpretation Crossmatch 10/21/16 10/21/16 10/21/16 12:31 16:33 19:53 WBC RBC Hgb Hct MCV MCHC RDW Plt Count Seg Neuts % (Manual) Lymphocytes % (Manual) Nucleated RBC % Seg Neutrophils # Man Lymphocytes # (Manual) Haptoglobin PT INR Fibrinogen Lupus Anticoagulant LA PTT Baseline POC ABG pH POC ABG pCO2 POC ABG pO2 Sodium Potassium Chloride Carbon Dioxide BUN Creatinine Glucose POC Glucose 145 H 151 H 170 H Lactic Acid Uric Acid Calcium Phosphorus Iron TIBC Ferritin Total Bilirubin Direct Bilirubin AST ALT Alkaline Phosphatase Lactate Dehydrogenase C-Reactive Protein Serum Total Protein Total Protein Albumin Vzbjf-1-Yqmqkjoul Abnorm Protein Band 1 PEP Interpretation Crossmatch 10/22/16 10/22/16 10/22/16 00:00 05:23 05:25 WBC RBC Hgb Hct MCV MCHC RDW Plt Count Seg Neuts % (Manual) Lymphocytes % (Manual) Nucleated RBC % Seg Neutrophils # Man Lymphocytes # (Manual) Haptoglobin PT INR Fibrinogen Lupus Anticoagulant LA PTT Baseline POC ABG pH POC ABG pCO2 POC ABG pO2 Sodium 135 L Potassium 3.0 L Chloride 88.5 L Carbon Dioxide BUN 84 H Creatinine 3.4 H Glucose 124 H POC Glucose 168 H 131 H Lactic Acid Uric Acid Calcium 5.9 L* Phosphorus Iron TIBC Ferritin Total Bilirubin 2.00 H Direct Bilirubin AST 85 H ALT Alkaline Phosphatase 199 H Lactate Dehydrogenase C-Reactive Protein Serum Total Protein Total Protein 5.0 L Albumin 2.5 L Dnrtb-7-Ndraauoqg Abnorm Protein Band 1 PEP Interpretation Crossmatch 10/22/16 05:35 WBC RBC Hgb Hct MCV MCHC RDW Plt Count Seg Neuts % (Manual) Lymphocytes % (Manual) Nucleated RBC % Seg Neutrophils # Man Lymphocytes # (Manual) Haptoglobin PT INR Fibrinogen Lupus Anticoagulant LA PTT Baseline POC ABG pH 7.462 H POC ABG pCO2 POC ABG pO2 Sodium Potassium Chloride Carbon Dioxide BUN Creatinine Glucose POC Glucose Lactic Acid Uric Acid Calcium Phosphorus Iron TIBC Ferritin Total Bilirubin Direct Bilirubin AST ALT Alkaline Phosphatase Lactate Dehydrogenase C-Reactive Protein Serum Total Protein Total Protein Albumin Cibay-9-Becisxzef Abnorm Protein Band 1 PEP Interpretation Crossmatch Allied health notes reviewed: RT
--- NOTE | 2016-10-22 12:39 | Progress Note ---
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 Acute respiratory failure - intubated. Sepsis / beta hemolitic strep bacterimia / leukocytosis Paroxysmal atrial fibrillation with variable ventricular response --> SR Acute metabolic encephalopathy ARF on CKD - requiring HD Profound metabolic acidemia/lactic acidosis Anemia / thrombocytopenia Hypocalcemia Plan: Cont PO amio, 200 qd.(decrease from bid) Try to keep K around 4.Then will Dc amoidarone because of increased INR and jaundice. Liver injury. Given anemia and thrombocytopenia, would defer systemic anticoagulation for now. Second blood culture with no growth after 72 hours. However, will consider JONATHAN next week if recommended per ID. Consider ischemic evaluation when medically stabilized. No ACEI/ARB in setting of ARF on CKD. No BB in setting of hypotension. Watch volume status closely Poor prognosis Subjective Date of service: 10/22/16 Principal diagnosis: Sepsis Syndrome; MAHA; RAJESH; CHF Interval history: Paient is on respirator. Undergoing plasmapheresis for TTP. VS stable. Objective Vital Signs Temp Pulse Pulse Resp BP Pulse Ox 10/22/16 12:20 69 121/77 98 10/22/16 08:50 74 114/70 100 10/22/16 07:45 72 18 128/82 10/22/16 07:30 72 20 129/83 10/22/16 07:15 71 18 125/81 10/22/16 07:00 75 19 159/95 10/22/16 06:45 76 19 167/99 10/22/16 06:30 76 20 160/101 10/22/16 06:15 69 9 L 133/82 10/22/16 06:00 72 23 143/94 10/22/16 05:45 68 17 126/83 99 10/22/16 05:30 71 14 144/93 98 10/22/16 05:25 70 138/89 99 10/22/16 05:15 75 18 138/89 100 10/22/16 05:00 70 16 133/88 100 10/22/16 04:45 72 15 146/95 100 10/22/16 04:30 72 17 147/93 10/22/16 04:15 70 18 136/88 100 10/22/16 04:00 98.9 F 73 74 16 148/94 100 10/22/16 03:45 71 17 127/85 100 10/22/16 03:30 72 18 138/89 98 10/22/16 03:15 71 18 121/80 99 10/22/16 03:00 74 16 141/90 98 10/22/16 02:45 75 16 142/93 98 10/22/16 02:30 73 15 124/81 97 10/22/16 02:15 75 15 135/87 98 10/22/16 02:00 78 21 119/83 97 10/22/16 01:59 79 10 L 139/88 100 10/22/16 01:30 77 20 139/88 100 10/22/16 01:15 76 11 L 129/75 96 10/22/16 01:00 78 24 156/95 100 10/22/16 00:45 75 19 127/76 100 10/22/16 00:30 77 23 141/87 100 10/22/16 00:15 76 16 132/81 100 10/22/16 00:10 76 143/88 100 10/22/16 00:00 98.4 F 76 22 137/81 100 10/21/16 23:55 77 18 99 10/21/16 23:45 76 18 135/85 91 10/21/16 23:30 76 14 133/77 99 10/21/16 23:15 77 21 143/88 98 10/21/16 23:00 79 25 H 151/82 81 L 10/21/16 22:45 78 20 147/87 100 10/21/16 22:30 80 21 160/90 94 10/21/16 22:16 78 18 145/84 100 10/21/16 22:00 74 16 120/73 100 10/21/16 21:45 76 17 131/79 100 10/21/16 21:30 76 17 138/83 100 10/21/16 21:15 75 19 121/71 100 10/21/16 21:02 76 19 135/80 100 10/21/16 21:00 77 20 135/80 100 10/21/16 20:45 79 24 135/77 100 10/21/16 20:30 80 24 144/88 100 10/21/16 20:28 80 149/84 100 10/21/16 20:15 82 23 149/84 100 10/21/16 20:00 76 74 15 139/80 100 10/21/16 19:45 77 19 144/81 100 0517 19:30 77 19 143/84 96 17 19:15 78 19 152/88 100 17 19:00 76 17 133/75 100 0517 18:45 78 19 153/90 100 17 18:30 78 20 147/81 100 0517 18:16 78 23 165/94 100 0517 18:00 75 19 138/80 100 05 17:55 97.7 F 72 12 122/81 99 10/21/16 17:50 76 25 H 140/88 100 10/21/16 17:40 75 24 148/90 100 17 17:30 75 22 140/92 100 05 17:20 75 19 140/92 100 10/21/16 17:10 74 20 162/101 100 10/21/16 17:00 78 24 169/103 100 10/21/16 16:50 78 25 H 162/101 100 10/21/16 16:40 75 15 163/100 100 10/21/16 16:30 77 20 163/100 100 17 16:20 77 22 182/106 100 10/21/16 16:10 76 17 159/87 100 10/21/16 16:00 98.8 F 76 19 159/87 100 10/21/16 15:50 75 18 160/94 100 17 15:40 75 16 158/95 100 17 15:30 77 20 158/95 100 17 15:20 75 20 144/88 100 0517 15:10 75 20 144/91 100 17 15:06 73 18 144/91 100 17 15:00 73 18 144/91 100 17 14:45 74 18 150/92 100 0517 14:30 74 19 146/92 100 0517 14:15 73 18 148/88 100 17 14:00 73 19 138/91 100 0517 13:45 72 18 142/89 100 0517 13:30 74 19 155/96 100 0517 13:15 76 18 151/94 100 0517 13:00 70 18 166/97 100 10/21/16 12:45 77 21 162/95 100 - Physical Examination General: Other (intubated; nonresponsive ) HEENT: Positive: Jaundice Neck: Positive: neck supple, trachea midline. Negative: JVD/HJR Cardiac: Positive: Reg Rate and Rhythm Lungs: Positive: clear to auscultation Neuro: Positive: Other (intubated; nonresponsive ) Abdomen: Positive: Soft, Active Bowel Sounds Skin: Positive: Clear. Negative: Rash, Wound Musculoskeletal: No Fluid Collection, No Pain, Normal Range of Motion Extremities: Present: upper extr. pulses, lower extr. pulses. Absent: edema - Labs and Meds Cardiac Enzymes 10/22/16 Range/Units 05:25 AST 85 H (5-40) units/L Comprehensive Metabolic Panel 10/22/16 Range/Units 05:25 Sodium 135 L (137-145) mmol/L Potassium 3.0 L (3.6-5.0) mmol/L Chloride 88.5 L (98-107) mmol/L Carbon Dioxide 23 (22-30) mmol/L BUN 84 H (9-20) mg/dL Creatinine 3.4 H (0.8-1.5) mg/dL Glucose 124 H (75-100) mg/dL Calcium 5.9 L* (8.4-10.2) mg/dL AST 85 H (5-40) units/L ALT 52 (7-56) units/L Alkaline Phosphatase 199 H (35-129) units/L Total Protein 5.0 L (6.3-8.2) g/dL Albumin 2.5 L (3.9-5) g/dL - Imaging and Cardiology EKG: report reviewed, image reviewed Echo: report reviewed - Telemetry EKG Rhythm: Sinus Rhythm - Allied health notes Allied health notes reviewed: RT
[2016-10-22] MEDS ORDERED: NACL 0.9% 100 ML IV PRN (13:19)
--- NOTE | 2016-10-22 13:33 | Progress Note ---
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, amyloidosis, s/p plasmapheresis today, worsening platelet count of 14 yesterday, follow up Hematology recs (2) Acute renal failure Current Visit: Yes Status: Acute Qualifiers: Acute renal failure type: A Plan to address problem: Hemodialysis today for ultrafiltration and clearance after plasmapheresis, no heparin during HD HD prescription adjusted to 4K Bath and 3.5 Calcium bath for hypokalemia and hypocalcemia management Replete calcium Assess need for HD on daily basis Renally dose medications Hgb level was 7.0 yesterday, no CBC today, repeat Hgb level tomorrow morning Obtain daily weight Strict intake and output Renal plan discussed with Dr Marin Continue supportive therapy (3) Acute respiratory failure Current Visit: Yes Status: Acute Qualifiers: Respiratory failure complication: hypoxia Qualified Code(s): J96.01 - Acute respiratory failure with hypoxia Plan to address problem: Pulmonology on board, vent management, follow up recs (4) Hypocalcemia Current Visit: Yes Status: Acute Plan to address problem: Replete calcium HD prescription adjust to higher 3.5 calcium bath (5) Hypokalemia Current Visit: Yes Status: Acute Plan to address problem: Hemodialysis prescription adjusted to 4K Bath for hypokalemia management Monitor labs daily (6) Anemia Current Visit: Yes Status: Acute Qualifiers: Anemia type: unspecified type Iron deficiency anemia type: I Vitamin B12 deficiency anemia type: V Folate deficiency anemia type: F Bone marrow failure anemia type: B Hemolytic anemia type: H Other causes of anemia: O Qualified Code(s): D64.9 - Anemia, unspecified Plan to address problem: Monitor Hgb level closely, hematology on board, follow up recs (7) Atrial fibrillation Current Visit: Yes Status: Acute Qualifiers: Atrial fibrillation type: A Plan to address problem: As per Cardiology, on amiodarone, follow up recs Subjective Date of service: 10/22/16 Principal diagnosis: Sepsis Syndrome; MAHA; RAJESH; CHF Interval history: Patient intubated on ventilator, doesn't follow commands. Patient s/p plasmapheresis today. No family at bedside Objective - Vital Signs Vital signs: Vital Signs - 12hr 10/22/16 10/22/16 10/22/16 01:30 01:59 02:00 Temperature Pulse Rate 77 79 78 Pulse Rate [ From Monitor] Respiratory 20 10 L 21 Rate Respiratory Rate [Bilateral Shoulder] Blood Pressure 139/88 139/88 119/83 O2 Sat by Pulse 100 100 97 Oximetry 10/22/16 10/22/16 10/22/16 02:15 02:30 02:45 Temperature Pulse Rate 75 73 75 Pulse Rate [ From Monitor] Respiratory 15 15 16 Rate Respiratory Rate [Bilateral Shoulder] Blood Pressure 135/87 124/81 142/93 O2 Sat by Pulse 98 97 98 Oximetry 10/22/16 10/22/16 10/22/16 03:00 03:15 03:30 Temperature Pulse Rate 74 71 72 Pulse Rate [ From Monitor] Respiratory 16 18 18 Rate Respiratory Rate [Bilateral Shoulder] Blood Pressure 141/90 121/80 138/89 O2 Sat by Pulse 98 99 98 Oximetry 10/22/16 10/22/16 10/22/16 03:45 04:00 04:15 Temperature 98.9 F Pulse Rate 71 73 70 Pulse Rate [ 74 From Monitor] Respiratory 17 16 18 Rate Respiratory Rate [Bilateral Shoulder] Blood Pressure 127/85 148/94 136/88 O2 Sat by Pulse 100 100 100 Oximetry 10/22/16 10/22/16 10/22/16 04:30 04:45 05:00 Temperature Pulse Rate 72 72 70 Pulse Rate [ From Monitor] Respiratory 17 15 16 Rate Respiratory Rate [Bilateral Shoulder] Blood Pressure 147/93 146/95 133/88 O2 Sat by Pulse 100 100 Oximetry 10/22/16 10/22/16 10/22/16 05:15 05:25 05:30 Temperature Pulse Rate 75 70 71 Pulse Rate [ From Monitor] Respiratory 18 14 Rate Respiratory Rate [Bilateral Shoulder] Blood Pressure 138/89 138/89 144/93 O2 Sat by Pulse 100 99 98 Oximetry 10/22/16 10/22/16 10/22/16 05:45 06:00 06:15 Temperature Pulse Rate 68 72 69 Pulse Rate [ From Monitor] Respiratory 17 23 9 L Rate Respiratory Rate [Bilateral Shoulder] Blood Pressure 126/83 143/94 133/82 O2 Sat by Pulse 99 Oximetry 10/22/16 10/22/16 10/22/16 06:30 06:45 07:00 Temperature Pulse Rate 76 76 75 Pulse Rate [ From Monitor] Respiratory 20 19 19 Rate Respiratory Rate [Bilateral Shoulder] Blood Pressure 160/101 167/99 159/95 O2 Sat by Pulse Oximetry 10/22/16 10/22/16 10/22/16 07:15 07:30 07:45 Temperature Pulse Rate 71 72 72 Pulse Rate [ From Monitor] Respiratory 18 20 18 Rate Respiratory Rate [Bilateral Shoulder] Blood Pressure 125/81 129/83 128/82 O2 Sat by Pulse Oximetry 10/22/16 10/22/16 10/22/16 08:00 08:16 08:30 Temperature Pulse Rate 74 75 74 Pulse Rate [ 75 From Monitor] Respiratory 16 18 17 Rate Respiratory Rate [Bilateral Shoulder] Blood Pressure 138/90 149/94 118/73 O2 Sat by Pulse Oximetry 10/22/16 10/22/16 10/22/16 08:45 08:50 09:00 Temperature Pulse Rate 71 74 72 Pulse Rate [ From Monitor] Respiratory 15 15 Rate Respiratory Rate [Bilateral Shoulder] Blood Pressure 106/65 114/70 114/70 O2 Sat by Pulse 100 100 100 Oximetry 10/22/16 10/22/16 10/22/16 09:15 09:30 09:45 Temperature Pulse Rate 70 69 69 Pulse Rate [ From Monitor] Respiratory 18 16 14 Rate Respiratory Rate [Bilateral Shoulder] Blood Pressure 118/74 109/68 105/65 O2 Sat by Pulse 100 100 Oximetry 10/22/16 10/22/16 10/22/16 10:00 10:15 10:30 Temperature Pulse Rate 69 73 71 Pulse Rate [ From Monitor] Respiratory 16 17 12 Rate Respiratory 16 Rate [Bilateral Shoulder] Blood Pressure 101/65 122/81 129/78 O2 Sat by Pulse 100 97 Oximetry 10/22/16 10/22/16 10/22/16 10:45 11:00 11:15 Temperature Pulse Rate 71 69 70 Pulse Rate [ From Monitor] Respiratory 14 21 15 Rate Respiratory Rate [Bilateral Shoulder] Blood Pressure 131/83 123/77 121/80 O2 Sat by Pulse 38 L Oximetry 10/22/16 10/22/16 10/22/16 11:30 11:45 12:00 Temperature Pulse Rate 69 69 70 Pulse Rate [ 72 From Monitor] Respiratory 19 17 16 Rate Respiratory Rate [Bilateral Shoulder] Blood Pressure 123/80 121/80 123/79 O2 Sat by Pulse 100 Oximetry 10/22/16 10/22/16 10/22/16 12:15 12:20 12:30 Temperature Pulse Rate 69 69 70 Pulse Rate [ From Monitor] Respiratory 15 15 Rate Respiratory Rate [Bilateral Shoulder] Blood Pressure 121/77 121/77 128/77 O2 Sat by Pulse 98 Oximetry 10/22/16 10/22/16 12:45 13:00 Temperature Pulse Rate 75 72 Pulse Rate [ From Monitor] Respiratory 14 12 Rate Respiratory Rate [Bilateral Shoulder] Blood Pressure 133/81 129/80 O2 Sat by Pulse 96 72 L Oximetry - General Appearance General appearance: intubated (on ventilator) EENT: ATNC Neck: no JVD Respiratory: Present: Other (Lung sounds decreased bilaterally, intubated) Cardiology: regular, S1S2, other (ACCESS: Right Vas Catheter intact) Gastrointestinal: normoactive bowel sounds (Dobhoff tube intact) Integumentary: skin tear (right hand skin wound; left arm skin tear with dressing in place; bilateral lower extremity skin wounds with dressings in place ) Neurologic: other (intubated on ventilator) Musculoskeletal: other (1+ edema to both lower extremities) Psychiatric: other (intubated on ventilator) - Lab 10/21/16 10:30 10/22/16 05:25 Most recent lab results Calcium 5.9 mg/dL (8.4-10.2) L* 10/22/16 05:25 Phosphorus 6.30 mg/dL (2.5-4.5) H 10/19/16 06:00
--- NOTE | 2016-10-22 15:39 | Progress Note ---
Assessment and Plan Assessment and plan: Patient is a 61-year-old man with no significant past medical history who presented to the emergency department [facility] 10/13/16, complaining of bilateral leg swelling that worsened for the last 4 days. He was found to have severe metabolic acidosis, creatinine was 14.5 with hyperkalemia, emergent Hemodialysis was set up. He was found to have severe pancytopenia and thrombocytopenia. Dr. 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 He was on bipap and was intubated 10/16/16, details are not readily available on why he needed to be intubated, no nursing note for . -Acute encephalopathy, not sedated, will consult Neurology. 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 Follow up on respiratory failure, patient still intubated. Overnight uneventful. No cp, sob, n/v or severe headaches. Imaging, old records, testing, labs, nursing notes reviewed. Hospitalist Physical - Physical exam Narrative exam: GEN: Critically ill intubated but not sedated HEENT: Eyes are floating, ET tube in place CVS: irregular, NORMAL S1S2 LUNGS/CHEST: NORMAL CHEST EXPANSION B, GOOD AIR ENTRY B ABD: SOFT, POSITIVE BOWEL SOUNDS, NONDISTENDED, NO REBOUND OR GUARDING NEURO: CN 2-12 GROSSLY INTACT, he doesn't follow commands PSY: Unresponsive - Constitutional Vitals: Temp Pulse Resp BP Pulse Ox 98.9 F 71 12 103/65 100 10/22/16 04:00 10/22/16 14:21 10/22/16 14:21 10/22/16 14:21 10/22/16 14:21 General appearance: Present: well-nourished Results - Labs CBC & Chem 7: 10/21/16 10:30 10/22/16 05:25 Labs: Laboratory Last Values WBC 28.1 K/mm3 (4.5-11.0) H 10/21/16 10:30 RBC 2.36 M/mm3 (3.65-5.03) L 10/21/16 10:30 Hgb 7.0 gm/dl (11.8-15.2) L 10/21/16 10:30 Hct 21.6 % (35.5-45.6) L 10/21/16 10:30 MCV 92 fl (84-94) 10/21/16 10:30 MCH 30 pg (28-32) 10/21/16 10:30 MCHC 33 % (32-34) 10/21/16 10:30 RDW 20.0 % (13.2-15.2) H 10/21/16 10:30 Plt Count 14 K/mm3 (140-440) L* 10/21/16 10:30 Lymph % (Auto) Per Diem Nurse 10/14/16 04:34 Mcminn % (Auto) Per Diem Nurse 10/14/16 04:34 Eos % (Auto) Per Diem Nurse 10/14/16 04:34 Baso % (Auto) Per Diem Nurse 10/14/16 04:34 Lymph # Per Diem Nurse 10/14/16 04:34 Mcminn # Per Diem Nurse 10/14/16 04:34 Eos # Per Diem Nurse 10/14/16 04:34 Baso # Per Diem Nurse 10/14/16 04:34 Add Manual Diff Complete 10/21/16 10:30 Total Counted 100 10/21/16 10:30 Seg Neutrophils % Per Diem Nurse 10/21/16 10:30 Seg Neuts % (Manual) 92.0 % (40.0-70.0) H 10/21/16 10:30 Band Neutrophils % 5.0 % 10/21/16 10:30 Lymphocytes % (Manual) 0 % (13.4-35.0) L 10/21/16 10:30 Reactive Lymphs % (Man) 0 % 10/21/16 10:30 Monocytes % (Manual) 0 % (0.0-7.3) 10/21/16 10:30 Eosinophils % (Manual) 0 % (0.0-4.3) 10/21/16 10:30 Basophils % (Manual) 0 % (0.0-1.8) 10/21/16 10:30 Metamyelocytes % 2.0 % 10/21/16 10:30 Myelocytes % 0 % 10/21/16 10:30 Promyelocytes % 1.0 % 10/21/16 10:30 Blast Cells % 0 % 10/21/16 10:30 Nucleated RBC % 5.0 % (0.0-0.9) H 10/21/16 10:30 Seg Neutrophils # Per Diem Nurse 10/14/16 04:34 Seg Neutrophils # Man 25.9 K/mm3 (1.8-7.7) H 10/21/16 10:30 Band Neutrophils # 1.4 K/mm3 10/21/16 10:30 Lymphocytes # (Manual) 0.0 K/mm3 (1.2-5.4) L 10/21/16 10:30 Abs React Lymphs (Man) 0.0 K/mm3 10/21/16 10:30 Monocytes # (Manual) 0.0 K/mm3 (0.0-0.8) 10/21/16 10:30 Eosinophils # (Manual) 0.0 K/mm3 (0.0-0.4) 10/21/16 10:30 Basophils # (Manual) 0.0 K/mm3 (0.0-0.1) 10/21/16 10:30 Metamyelocytes # 0.6 K/mm3 10/21/16 10:30 Myelocytes # 0.0 K/mm3 10/21/16 10:30 Promyelocytes # 0.3 K/mm3 10/21/16 10:30 Blast Cells # 0.0 K/mm3 10/21/16 10:30 WBC Morphology Not Reportable 10/21/16 10:30 Hypersegmented Neuts Not Reportable 10/21/16 10:30 Hyposegmented Neuts Not Reportable 10/21/16 10:30 Hypogranular Neuts Not Reportable 10/21/16 10:30 Smudge Cells Not Reportable 10/21/16 10:30 Toxic Granulation Not Reportable 10/21/16 10:30 Toxic Vacuolation Not Reportable 10/21/16 10:30 Dohle Bodies Not Reportable 10/21/16 10:30 Pelger-Huet Anomaly Not Reportable 10/21/16 10:30 Madhu Rods Not Reportable 10/21/16 10:30 Platelet Estimate Appears decreased 10/21/16 10:30 Clumped Platelets Not Reportable 10/21/16 10:30 Plt Clumps, EDTA Not Reportable 10/21/16 10:30 Large Platelets Not Reportable 10/21/16 10:30 Giant Platelets Rare 10/21/16 10:30 Platelet Satelliting Not Reportable 10/21/16 10:30 Plt Morphology Comment Not Reportable 10/21/16 10:30 RBC Morphology Not Reportable 10/21/16 10:30 Dimorphic RBCs Not Reportable 10/21/16 10:30 Polychromasia 1+ 10/21/16 10:30 Hypochromasia 1+ 10/21/16 10:30 Poikilocytosis Not Reportable 10/21/16 10:30 Basophilic Stippling Rare 10/21/16 10:30 Anisocytosis 2+ 10/21/16 10:30 Microcytosis Not Reportable 10/21/16 10:30 Macrocytosis Not Reportable 10/21/16 10:30 Spherocytes Not Reportable 10/21/16 10:30 Pappenheimer Bodies Not Reportable 10/21/16 10:30 Sickle Cells Not Reportable 10/21/16 10:30 Target Cells Not Reportable 10/21/16 10:30 Tear Drop Cells Not Reportable 10/21/16 10:30 Ovalocytes 1+ 10/21/16 10:30 Stomatocytes Few 10/21/16 10:30 Helmet Cells Rare 10/21/16 10:30 [place] Bodies Not Reportable 10/21/16 10:30 [place] Rings Not Reportable 10/21/16 10:30 Sabrina Cells Not Reportable 10/21/16 10:30 Bite Cells Not Reportable 10/21/16 10:30 Crenated Cell Not Reportable 10/21/16 10:30 Elliptocytes Few 10/21/16 10:30 Acanthocytes (Spur) Not Reportable 10/21/16 10:30 Rouleaux Not Reportable 10/21/16 10:30 Hemoglobin C Crystals Not Reportable 10/21/16 10:30 Schistocytes Not Reportable 10/21/16 10:30 Malaria parasites Not Reportable 10/21/16 10:30 ESR 77 mm/Hr (0-20) 10/14/16 04:34 Pal Bodies Not Reportable 10/21/16 10:30 Haptoglobin <15 mg/dL (43-212) L 10/15/16 12:00 Hem Pathologist Commnt No 10/21/16 10:30 PT 49.1 Sec. (12.2-14.9) H 10/21/16 11:25 INR 5.28 (0.87-1.13) H* 10/21/16 11:25 Fibrinogen 557 mg/dl (211-480) H 10/14/16 09:58 Lupus Anticoagulant see below H 10/14/16 03:00 LA PTT Baseline 55 sec (<=40) H 10/14/16 03:00 dRVVT Confirm Interp Negative (Negative) 10/14/16 03:00 POC ABG pH 7.462 (7.35-7.45) H 10/22/16 05:35 POC ABG pCO2 41.2 (35-45) 10/22/16 05:35 POC ABG pO2 102 (80-105) 10/22/16 05:35 POC ABG HCO3 29.4 10/22/16 05:35 POC ABG Total CO2 31 10/22/16 05:35 POC ABG O2 Sat 98 10/22/16 05:35 POC ABG Base Excess 6 10/22/16 05:35 FiO2 25 % 10/22/16 05:35 Sodium 135 mmol/L (137-145) L 10/22/16 05:25 Potassium 3.0 mmol/L (3.6-5.0) L 10/22/16 05:25 Chloride 88.5 mmol/L (98-107) L 10/22/16 05:25 Carbon Dioxide 23 mmol/L (22-30) 10/22/16 05:25 Anion Gap 27 mmol/L 10/22/16 05:25 BUN 84 mg/dL (9-20) H 10/22/16 05:25 Creatinine 3.4 mg/dL (0.8-1.5) H 10/22/16 05:25 Estimated GFR 18 ml/min 10/22/16 05:25 BUN/Creatinine Ratio 24.70 % 10/22/16 05:25 Glucose 124 mg/dL (75-100) H 10/22/16 05:25 POC Glucose 164 (70-105) H 10/22/16 13:03 Lactic Acid 14.30 mmol/L (0.7-2.0) H* 10/18/16 09:15 Uric Acid 8.0 mg/dL (3.5-7.6) H 10/14/16 03:00 Calcium 5.9 mg/dL (8.4-10.2) L* 10/22/16 05:25 Phosphorus 6.30 mg/dL (2.5-4.5) H 10/19/16 06:00 Iron 146 ug/dL (49-181) 10/15/16 05:35 TIBC 166 mcg/dL (250-450) L 10/15/16 05:35 Ferritin 9562.0 ng/mL (13.0-400.0) H 10/15/16 05:35 Total Bilirubin 2.00 mg/dL (0.1-1.2) H 10/22/16 05:25 Direct Bilirubin 1.1 mg/dL (0-0.2) H 10/14/16 09:58 Indirect Bilirubin 0.2 mg/dL 10/14/16 09:58 AST 85 units/L (5-40) H 10/22/16 05:25 ALT 52 units/L (7-56) 10/22/16 05:25 Alkaline Phosphatase 199 units/L (35-129) H 10/22/16 05:25 Ammonia 32.0 umol/L (25-60) 10/19/16 14:15 Lactate Dehydrogenase 3871 units/L (91-180) H 10/15/16 05:35 Troponin T 0.079 ng/mL (0.00-0.029) H 10/13/16 10:14 C-Reactive Protein 40.40 mg/dL (0.00-1.30) H 10/14/16 12:52 NT-Pro-B Natriuret Pep > 76418 pg/mL (0-900) H 10/13/16 10:14 Serum Total Protein 5.6 g/dL (6.1-8.1) L 10/13/16 14:50 Total Protein 5.0 g/dL (6.3-8.2) L 10/22/16 05:25 Albumin 2.5 g/dL (3.9-5) L 10/22/16 05:25 Albumin/Globulin Ratio 1.0 % 10/22/16 05:25 Mrzxp-2-Xdakrgqyf 0.5 g/dL (0.2-0.3) H 10/13/16 14:50 Vpeqh-6-Ophxcmkrl 0.6 g/dL (0.5-0.9) 10/13/16 14:50 Beta Globulins 0.3 g/dL (0.2-0.5) 10/13/16 14:50 Gamma Globulins 1.7 g/dL (0.8-1.7) 10/13/16 14:50 Abnorm Protein Band 1 1.4 g/dL H 10/13/16 14:50 PEP Interpretation see below H 10/13/16 14:50 Triglycerides 119 mg/dL (2-149) 10/13/16 10:14 Cholesterol 71 mg/dL (50-199) 10/13/16 10:14 LDL Cholesterol Direct 41 mg/dL (50-130) L 10/13/16 10:14 HDL Cholesterol 7 mg/dL (40-59) L 10/13/16 10:14 Cholesterol/HDL Ratio 10.14 % 10/13/16 10:14 Lipase 21 units/L (13-60) 10/15/16 05:35 Vitamin B12 893.9 pg/mL (211-911) 10/14/16 03:00 TSH 0.526 mlU/mL (0.270-4.200) 10/19/16 14:15 Random Vancomycin 15.2 ug/mL (0-40.0) 10/21/16 03:53 XU Screen Negative (Negative) 10/13/16 14:50 Proteinase 3 (PR3) Ab <1.0 AI (<1.0) 10/13/16 14:50 Myeloperoxidase Ab <1.0 AI (<1.0) 10/13/16 14:50 Glomerular Base Mem IgG <1.0 AI (<1.0) 10/13/16 14:50 Complement C3 101 mg/dL (90-180) 10/13/16 14:50 Complement C4 16 mg/dL (16-47) 10/13/16 14:50 Hep Bs Antigen Non-reactive (Negative) 10/13/16 14:50 Hepatitis C Antibody Non-reactive (NonReactive) 10/13/16 14:50 HIV 1&2 Antibody Rapid Non react (Non React) 10/13/16 14:50 HIV P24 Antigen Non react (Non React) 10/13/16 14:50 Schistocytes Smear None seen 10/15/16 12:00 Flow Intrp 16+ Markers Scanned into med rec 10/14/16 11:30 Flow Cytometry Interp Scanned into [facility] rec 10/14/16 11:30 Blood Type O POSITIVE 10/17/16 07:59 Antibody Screen TNR 10/17/16 07:59 MADIHA Antibody Screen Negative 10/17/16 07:59 Direct Antiglob Test Negative 10/14/16 03:00 ELAINE, Poly Interpret Negative 10/14/16 03:00 Crossmatch See Detail 10/17/16 07:59
[2016-10-23] MEDS: NOVOLOG SUB-Q SCH ×3 (03:13→12:44)
[2016-10-23 05:09] LABS: ISTAT Base Excess 4; ISTAT HCO3 27.6; ISTAT PCO2 37.4 (35-45); ISTAT PH 7.476 (7.35-7.45); ISTAT PO2 108 (80-105); ISTAT SO2 99; ISTAT TCO2 29
[2016-10-23 07:42] LABS: Hematocrit 21.1 % (35.5-45.6); Mean Corpuscular HGB Conc 33 % (32-34); Mean Corpuscular Hemoglobin 31 pg (28-32); Mean Corpuscular Volume 93 fl (84-94); Red Blood Count 2.27 M/mm3 (3.65-5.03); Red Cell Distribution Width 19.7 % (13.2-15.2)
[2016-10-23 07:43] LABS: White Blood Count 24.2 K/mm3 (4.5-11.0)
[2016-10-23 07:43] LABS: BUN/Creatinine Ratio 20.37; Calcium 7.1 mg/dL (8.4-10.2); Chloride 95.7 mmol/L (98-107); Potassium 3.5 mmol/L (3.6-5.0)
[2016-10-23] MEDS: CLEOCIN 900 MG/50 mL 900 MG/50 ML BAG IV SCH ×3 (07:54→21:23)
[2016-10-23] MEDS: CORDARONE PO SCH (09:07)
[2016-10-23] MEDS: PEPCID PO SCH (09:07)
--- NOTE | 2016-10-23 09:13 | XRay Report ---
Single view chest: Compared to 10/22/16. History: Followup of respiratory failure. Findings: Cardiomegaly. Support system in place. Mild pulmonary venous congestion left lung with left pleural effusion. No significant interval change. Impression: No significant interval change.
[2016-10-23] MEDS ORDERED: VANCOMYCIN 1,250 MG in NACL 0.9% 250ML 250 ML IV ONE (12:00)
[2016-10-23 12:13] LABS: Platelet Count 35 K/mm3 (140-440)
--- NOTE | 2016-10-23 13:30 | Magnetic Resonance Report ---
FINAL REPORT PROCEDURE: MR BRAIN WO CON TECHNIQUE: Multi planar multi sequence MR imaging of the brain was performed. HISTORY: ams COMPARISON: Noncontrast head CT 10/22/2016 FINDINGS: Again seen is multi focal bilateral supratentorial abnormal signal. This predominantly involves both bourgeois and white matter. Again this is most conspicuous within bilateral parietal lobes, right occipital lobe and bilateral frontal lobes. Abnormal signal corresponding with decreased density with associated small hemorrhage smaller within the left insula is present. There is T1 shortening and hypointense gradient echo signal multi focal consistent with hemorrhage. Multi focal gyral T1 shortening may be petechial hemorrhage and/or laminar necrosis. Associated multi focal restricted diffusion as well as T2 shine through is present. Overall this process is not worsened. There is no definite intra or extra-axial mass lesion or leptomeningeal abnormality, limited in evaluation without IV gadolinium. Re-identified involutional changes and gliosis are present. The visualized paranasal sinuses, mastoid air cells and middle ears are clear. IMPRESSION: Re-identified multi focal abnormal signal not intervally worsened when compared to the immediate prior CT. Multi focal associated hemorrhage is again noted as well as possibly better seen on MRI smaller petechial hemorrhage or laminar necrosis. Again differential considerations include hemorrhagic transformation of bland ischemia, hemorrhagic metastases and septic emboli. Clinical correlation is recommended as well as consider at follow-up the addition of IV gadolinium to most sensitively evaluate for focal intracranial lesions.
--- NOTE | 2016-10-23 13:39 | Progress Note ---
Assessment and Plan - Patient Problems (1) Acute respiratory failure Current Visit: Yes Status: Acute Qualifiers: Respiratory failure complication: hypoxia Qualified Code(s): J96.01 - Acute respiratory failure with hypoxia Plan to address problem: Currently on AC-VC 25/500/PEEP 10/23% ABG 7.46/41/102/29.4 VAP bundle addressed HOB>40, aspiration precautions CXR prn Daily SATs/SBTs Agitation management- intermittent medication Nutrition - at goal and is being tolerated No VTE pharmacoprophylaxis secondary to severe coagulopathy Stress ulcer prophylaxis- Famotidine Continues to tolerate SBTs, however his mental status precludes extubation at this time. (2) Septic shock Current Visit: Yes Status: Acute Plan to address problem: Secondary to Streptococcal bacteremia/pneumonia Transthoracic echo was negative for vegetations Off vasopressor support and continues to maintain adequate blood pressure Antibiotics as per ID service (3) TTP (thrombotic thrombocytopenic purpura) Current Visit: Yes Status: Acute Plan to address problem: As per hematology. Avoid platelet transfusions Improving thrombocytopenia with steroids and plasmapheresis. Avoid invasive procedures that may provoke mucosal bleeding (4) RAJESH (acute kidney injury) Current Visit: Yes Status: Acute Plan to address problem: On supportive HD Renal managing (5) Anemia Current Visit: Yes Status: Acute Qualifiers: Anemia type: unspecified type Iron deficiency anemia type: I Vitamin B12 deficiency anemia type: V Folate deficiency anemia type: F Bone marrow failure anemia type: B Hemolytic anemia type: H Other causes of anemia: O Qualified Code(s): D64.9 - Anemia, unspecified Plan to address problem: Monitor, supportive transfusions as needed (6) Acute encephalopathy Current Visit: Yes Status: Acute Plan to address problem: Continue to monitor. Avoid benzodiazepines. Subjective Date of service: 10/23/16 Principal diagnosis: Sepsis Syndrome; MAHA; RAJESH; CHF Interval history: Patient admitted with * Acute metabolic encephalopathy * AFIB WITH RVR * beta hemolitic strep BACTERIMIA * Acute Respiratory failure with hypoxia * Pancytopenia [leukopenia, severe anemia, Improving thrombocytopenia] * End-stage renal disease * secondary coagulopathy * Lactic acidosis * Probable TTP, HUS * Acute systolic congestive heart failure EF around 30% * SEVERE SEPSIS * Today 10/23/2016 Critically ill, on mechanical ventilatory support- required orotracheal intubation 10/16/2016 Receiving plasmaphersis- for thrombocytopenia that is now improving On antibiotics for Strep PNA Seen and examined, vitals, labs, records reviewed. Opens eyes in response to my voice Tolerating tube feedings Tolerating PSV 03/02- no dysynchrony Tidal volumes 380-400 Seen and examined. Vitals, labs, medications, chart reviewed. discussed with RN/RT at the bedside Objective - Exam Narrative Exam: GEN: Critically ill intubated but not sedated HEENT: Atraumatic, normocephalic ET tube in place CVS: irregular, NORMAL S1S2 LUNGS/CHEST: NORMAL CHEST EXPANSION B, Decreased AE bilaterally ABD: SOFT, POSITIVE BOWEL SOUNDS, NON-DISTENDED, NO REBOUND OR GUARDING NEURO: Spontaneous eye opening, he doesn't follow commands PSY: Unresponsive Extremities: Ecchymosis with edema Vital Signs - 12hr 10/23/16 10/23/16 10/23/16 01:45 02:00 02:15 Temperature Pulse Rate 89 86 87 Respiratory 18 18 13 Rate Respiratory Rate [BILATERAL KNEES] Respiratory Rate [Bilateral Shoulder] Blood Pressure 151/87 132/75 144/82 O2 Sat by Pulse 98 98 99 Oximetry 10/23/16 10/23/16 10/23/16 02:30 02:45 03:00 Temperature Pulse Rate 87 87 87 Respiratory 17 21 12 Rate Respiratory Rate [BILATERAL KNEES] Respiratory Rate [Bilateral Shoulder] Blood Pressure 147/82 142/83 145/87 O2 Sat by Pulse 99 99 99 Oximetry 10/23/16 10/23/16 10/23/16 03:15 03:30 03:45 Temperature Pulse Rate 83 82 86 Respiratory 19 16 22 Rate Respiratory Rate [BILATERAL KNEES] Respiratory Rate [Bilateral Shoulder] Blood Pressure 122/70 123/71 142/89 O2 Sat by Pulse 99 99 99 Oximetry 10/23/16 10/23/16 10/23/16 03:46 03:50 04:00 Temperature 98.9 F Pulse Rate 83 84 Respiratory 16 Rate Respiratory Rate [BILATERAL KNEES] Respiratory Rate [Bilateral Shoulder] Blood Pressure 123/71 136/79 O2 Sat by Pulse 99 99 Oximetry 10/23/16 10/23/16 10/23/16 04:15 04:30 04:45 Temperature Pulse Rate 85 84 126 H Respiratory 19 15 18 Rate Respiratory Rate [BILATERAL KNEES] Respiratory Rate [Bilateral Shoulder] Blood Pressure 152/87 147/87 152/105 O2 Sat by Pulse 99 99 100 Oximetry 10/23/16 10/23/16 10/23/16 05:00 05:15 05:30 Temperature Pulse Rate 87 87 85 Respiratory 19 12 12 Rate Respiratory Rate [BILATERAL KNEES] Respiratory Rate [Bilateral Shoulder] Blood Pressure 143/86 144/83 150/87 O2 Sat by Pulse 100 97 99 Oximetry 10/23/16 10/23/16 10/23/16 05:45 06:00 06:04 Temperature Pulse Rate 84 86 Respiratory 14 15 18 Rate Respiratory Rate [BILATERAL KNEES] Respiratory Rate [Bilateral Shoulder] Blood Pressure 164/84 160/96 O2 Sat by Pulse 99 99 99 Oximetry 10/23/16 10/23/16 10/23/16 06:15 06:30 06:46 Temperature Pulse Rate 83 120 H 131 H Respiratory 16 19 18 Rate Respiratory Rate [BILATERAL KNEES] Respiratory Rate [Bilateral Shoulder] Blood Pressure 132/82 140/74 125/80 O2 Sat by Pulse 99 99 100 Oximetry 10/23/16 10/23/16 10/23/16 07:00 07:15 07:30 Temperature Pulse Rate 119 H 125 H 148 H Respiratory 18 20 17 Rate Respiratory Rate [BILATERAL KNEES] Respiratory Rate [Bilateral Shoulder] Blood Pressure 119/69 128/79 116/79 O2 Sat by Pulse 100 99 99 Oximetry 10/23/16 10/23/16 10/23/16 07:45 08:00 08:15 Temperature Pulse Rate 149 H 85 84 Respiratory 19 19 Rate Respiratory Rate [BILATERAL KNEES] Respiratory Rate [Bilateral Shoulder] Blood Pressure 136/85 117/74 117/74 O2 Sat by Pulse 99 98 99 Oximetry 10/23/16 10/23/16 10/23/16 08:16 08:24 08:30 Temperature Pulse Rate 85 84 84 Respiratory 20 17 17 Rate Respiratory Rate [BILATERAL KNEES] Respiratory Rate [Bilateral Shoulder] Blood Pressure 117/74 117/74 117/74 O2 Sat by Pulse 99 94 98 Oximetry 10/23/16 10/23/16 10/23/16 08:46 09:00 09:16 Temperature 98.6 F Pulse Rate 82 82 83 Respiratory 14 17 16 Rate Respiratory Rate [BILATERAL KNEES] Respiratory Rate [Bilateral Shoulder] Blood Pressure 117/74 127/78 127/78 O2 Sat by Pulse 98 99 99 Oximetry 10/23/16 10/23/16 10/23/16 09:30 09:46 09:51 Temperature Pulse Rate 83 82 82 Respiratory 17 16 16 Rate Respiratory Rate [BILATERAL KNEES] Respiratory Rate [Bilateral Shoulder] Blood Pressure 127/78 127/78 127/78 O2 Sat by Pulse 98 99 99 Oximetry 10/23/16 10/23/16 10/23/16 10:00 10:16 10:30 Temperature Pulse Rate 83 82 82 Respiratory 17 16 16 Rate Respiratory 28 H Rate [BILATERAL KNEES] Respiratory 13 Rate [Bilateral Shoulder] Blood Pressure 142/87 142/87 142/87 O2 Sat by Pulse 99 99 99 Oximetry 10/23/16 10/23/16 10/23/16 10:46 11:00 11:16 Temperature Pulse Rate 84 79 79 Respiratory 17 14 15 Rate Respiratory Rate [BILATERAL KNEES] Respiratory Rate [Bilateral Shoulder] Blood Pressure 142/87 143/77 143/77 O2 Sat by Pulse 98 98 99 Oximetry 10/23/16 10/23/16 10/23/16 12:00 12:11 12:16 Temperature 97.5 F L Pulse Rate 80 82 Respiratory 18 16 Rate Respiratory Rate [BILATERAL KNEES] Respiratory Rate [Bilateral Shoulder] Blood Pressure 143/77 122/83 O2 Sat by Pulse 99 98 Oximetry 10/23/16 10/23/16 10/23/16 12:36 12:46 12:52 Temperature Pulse Rate 83 84 84 Respiratory 16 16 16 Rate Respiratory Rate [BILATERAL KNEES] Respiratory Rate [Bilateral Shoulder] Blood Pressure 143/77 143/77 122/83 O2 Sat by Pulse 98 98 98 Oximetry 10/23/16 13:00 Temperature Pulse Rate 111 H Respiratory 15 Rate Respiratory Rate [BILATERAL KNEES] Respiratory Rate [Bilateral Shoulder] Blood Pressure 136/81 O2 Sat by Pulse 98 Oximetry Constitutional: no acute distress, lethargic Eyes: non-icteric ENT: oropharynx dry Neck: supple, no lymphadenopathy Effort: normal, mildly labored Ascultation: Bilateral: clear, diminished breath sounds Cardiovascular: irregular rhythm Gastrointestinal: normoactive bowel sounds, soft, non-distended Integumentary: erythema (ecchymosis/purpura) Extremities: no cyanosis, pulses normal, no ischemia or petechiae, edema Neurologic: non-focal exam (grossly), pupils equal and round, unable to assess Psychiatric: other (unable to assess) CBC and BMP: 10/24/16 07:00 10/24/16 07:00 ABG, PT/INR, D-dimer: ABG POC ABG pH 7.476 (7.35-7.45) H 10/23/16 04:47 POC ABG pCO2 37.4 (35-45) 10/23/16 04:47 POC ABG pO2 108 (80-105) H 10/23/16 04:47 POC ABG HCO3 27.6 10/23/16 04:47 POC ABG Total CO2 29 10/23/16 04:47 POC ABG O2 Sat 99 10/23/16 04:47 PT/INR, D-dimer PT 49.1 Sec. (12.2-14.9) H 10/21/16 11:25 INR 5.28 (0.87-1.13) H* 10/21/16 11:25 Abnormal lab findings: Abnormal Labs 10/13/16 10/13/16 10/13/16 14:50 21:40 22:05 WBC RBC Hgb Hct MCV MCHC RDW Plt Count Seg Neuts % (Manual) Lymphocytes % (Manual) Nucleated RBC % Seg Neutrophils # Man Lymphocytes # (Manual) Haptoglobin PT INR Fibrinogen Lupus Anticoagulant LA PTT Baseline POC ABG pH POC ABG pCO2 POC ABG pO2 Sodium Potassium Chloride Carbon Dioxide BUN Creatinine Glucose POC Glucose 52 L 43 L Lactic Acid Uric Acid Calcium Phosphorus Iron TIBC Erythropoietin Ferritin Total Bilirubin Direct Bilirubin AST ALT Alkaline Phosphatase Lactate Dehydrogenase C-Reactive Protein Serum Total Protein 5.6 L Total Protein Albumin 2.2 L Aaigd-8-Geaknalbq 0.5 H Abnorm Protein Band 1 1.4 H PEP Interpretation see below H Crossmatch 10/13/16 10/14/16 10/14/16 23:18 03:00 03:00 WBC RBC Hgb Hct MCV MCHC RDW Plt Count Seg Neuts % (Manual) Lymphocytes % (Manual) Nucleated RBC % Seg Neutrophils # Man Lymphocytes # (Manual) Haptoglobin PT INR Fibrinogen Lupus Anticoagulant see below H LA PTT Baseline 55 H POC ABG pH POC ABG pCO2 POC ABG pO2 Sodium Potassium Chloride Carbon Dioxide BUN Creatinine Glucose POC Glucose 113 H Lactic Acid Uric Acid Calcium Phosphorus Iron TIBC Erythropoietin Ferritin Total Bilirubin Direct Bilirubin AST ALT Alkaline Phosphatase Lactate Dehydrogenase 406 H C-Reactive Protein Serum Total Protein Total Protein Albumin Jeaje-0-Qebobafli Abnorm Protein Band 1 PEP Interpretation Crossmatch 10/14/16 10/14/16 10/14/16 03:00 03:00 04:34 WBC 1.3 L* RBC 2.33 L Hgb 7.3 L Hct 21.7 L MCV MCHC RDW 19.8 H Plt Count 99 L Seg Neuts % (Manual) Lymphocytes % (Manual) 3.0 L Nucleated RBC % Seg Neutrophils # Man 0.9 L Lymphocytes # (Manual) 0.0 L Haptoglobin PT INR Fibrinogen Lupus Anticoagulant LA PTT Baseline POC ABG pH POC ABG pCO2 POC ABG pO2 Sodium Potassium Chloride Carbon Dioxide 18 L BUN 73 H Creatinine 9.8 H Glucose 59 L POC Glucose Lactic Acid Uric Acid 8.0 H Calcium 8.2 L Phosphorus 6.60 H Iron 13 L TIBC 160 L Erythropoietin Ferritin Total Bilirubin Direct Bilirubin AST ALT Alkaline Phosphatase Lactate Dehydrogenase C-Reactive Protein Serum Total Protein Total Protein Albumin Qofkc-3-Ynggowubg Abnorm Protein Band 1 PEP Interpretation Crossmatch 10/14/16 10/14/16 10/14/16 05:27 06:29 07:34 WBC RBC Hgb Hct MCV MCHC RDW Plt Count Seg Neuts % (Manual) Lymphocytes % (Manual) Nucleated RBC % Seg Neutrophils # Man Lymphocytes # (Manual) Haptoglobin PT INR Fibrinogen Lupus Anticoagulant LA PTT Baseline POC ABG pH POC ABG pCO2 POC ABG pO2 Sodium Potassium Chloride Carbon Dioxide BUN Creatinine Glucose POC Glucose < 40 L 63 L < 40 L Lactic Acid Uric Acid Calcium Phosphorus Iron TIBC Erythropoietin Ferritin Total Bilirubin Direct Bilirubin AST ALT Alkaline Phosphatase Lactate Dehydrogenase C-Reactive Protein Serum Total Protein Total Protein Albumin Tmbqa-8-Nxdnlvlit Abnorm Protein Band 1 PEP Interpretation Crossmatch 10/14/16 10/14/16 10/14/16 09:58 09:58 09:58 WBC RBC Hgb Hct MCV MCHC RDW Plt Count Seg Neuts % (Manual) Lymphocytes % (Manual) Nucleated RBC % Seg Neutrophils # Man Lymphocytes # (Manual) Haptoglobin 218 H PT INR Fibrinogen 557 H Lupus Anticoagulant LA PTT Baseline POC ABG pH POC ABG pCO2 POC ABG pO2 Sodium Potassium Chloride Carbon Dioxide BUN Creatinine Glucose POC Glucose Lactic Acid Uric Acid Calcium Phosphorus Iron TIBC Erythropoietin Ferritin Total Bilirubin 1.30 H Direct Bilirubin 1.1 H AST ALT Alkaline Phosphatase Lactate Dehydrogenase C-Reactive Protein Serum Total Protein Total Protein Albumin Wnhpd-4-Ruaezdulo Abnorm Protein Band 1 PEP Interpretation Crossmatch 10/14/16 10/14/16 10/14/16 10:57 11:15 12:52 WBC RBC Hgb Hct MCV MCHC RDW Plt Count Seg Neuts % (Manual) Lymphocytes % (Manual) Nucleated RBC % Seg Neutrophils # Man Lymphocytes # (Manual) Haptoglobin PT INR Fibrinogen Lupus Anticoagulant LA PTT Baseline POC ABG pH POC ABG pCO2 POC ABG pO2 Sodium Potassium Chloride Carbon Dioxide BUN Creatinine Glucose POC Glucose < 40 L < 40 L Lactic Acid 9.60 H* Uric Acid Calcium Phosphorus Iron TIBC Erythropoietin Ferritin Total Bilirubin Direct Bilirubin AST ALT Alkaline Phosphatase Lactate Dehydrogenase C-Reactive Protein Serum Total Protein Total Protein Albumin Uodlp-7-Pmgvlapkb Abnorm Protein Band 1 PEP Interpretation Crossmatch 10/14/16 10/14/16 10/14/16 12:52 13:17 14:12 WBC RBC Hgb Hct MCV MCHC RDW Plt Count Seg Neuts % (Manual) Lymphocytes % (Manual) Nucleated RBC % Seg Neutrophils # Man Lymphocytes # (Manual) Haptoglobin PT INR Fibrinogen Lupus Anticoagulant LA PTT Baseline POC ABG pH POC ABG pCO2 POC ABG pO2 Sodium Potassium Chloride Carbon Dioxide BUN Creatinine Glucose POC Glucose < 40 L < 40 L Lactic Acid Uric Acid Calcium Phosphorus Iron TIBC Erythropoietin Ferritin Total Bilirubin Direct Bilirubin AST ALT Alkaline Phosphatase Lactate Dehydrogenase C-Reactive Protein 40.40 H Serum Total Protein Total Protein Albumin Qvkkd-2-Botpqmahn Abnorm Protein Band 1 PEP Interpretation Crossmatch 10/14/16 10/14/16 10/14/16 15:02 15:33 15:33 WBC RBC Hgb Hct MCV MCHC RDW Plt Count Seg Neuts % (Manual) Lymphocytes % (Manual) Nucleated RBC % Seg Neutrophils # Man Lymphocytes # (Manual) Haptoglobin PT INR Fibrinogen Lupus Anticoagulant LA PTT Baseline POC ABG pH POC ABG pCO2 POC ABG pO2 Sodium Potassium Chloride Carbon Dioxide BUN Creatinine Glucose 19 L* POC Glucose < 40 L Lactic Acid 11.60 H* Uric Acid Calcium Phosphorus Iron TIBC Erythropoietin Ferritin Total Bilirubin Direct Bilirubin AST ALT Alkaline Phosphatase Lactate Dehydrogenase C-Reactive Protein Serum Total Protein Total Protein Albumin Ayrjx-4-Jhloeihgc Abnorm Protein Band 1 PEP Interpretation Crossmatch 10/14/16 10/14/16 10/14/16 17:14 18:03 21:25 WBC RBC Hgb Hct MCV MCHC RDW Plt Count Seg Neuts % (Manual) Lymphocytes % (Manual) Nucleated RBC % Seg Neutrophils # Man Lymphocytes # (Manual) Haptoglobin PT 28.9 H INR 2.71 H Fibrinogen Lupus Anticoagulant LA PTT Baseline POC ABG pH POC ABG pCO2 POC ABG pO2 Sodium Potassium Chloride Carbon Dioxide BUN Creatinine Glucose POC Glucose < 40 L 57 L Lactic Acid Uric Acid Calcium Phosphorus Iron TIBC Erythropoietin Ferritin Total Bilirubin Direct Bilirubin AST ALT Alkaline Phosphatase Lactate Dehydrogenase C-Reactive Protein Serum Total Protein Total Protein Albumin Xtfae-8-Qqkteujvx Abnorm Protein Band 1 PEP Interpretation Crossmatch 10/15/16 10/15/16 10/15/16 05:32 05:35 05:35 WBC RBC 2.62 L Hgb 8.1 L Hct 25.8 L MCV 98 H D MCHC 31 L RDW 21.2 H Plt Count 61 L Seg Neuts % (Manual) 27.0 L Lymphocytes % (Manual) 10.0 L Nucleated RBC % 2.0 H Seg Neutrophils # Man Lymphocytes # (Manual) 0.8 L Haptoglobin PT INR Fibrinogen Lupus Anticoagulant LA PTT Baseline POC ABG pH POC ABG pCO2 POC ABG pO2 Sodium Potassium Chloride Carbon Dioxide BUN Creatinine Glucose POC Glucose < 40 L Lactic Acid Uric Acid Calcium Phosphorus Iron TIBC Erythropoietin Ferritin Total Bilirubin Direct Bilirubin AST ALT Alkaline Phosphatase Lactate Dehydrogenase 3871 H C-Reactive Protein Serum Total Protein Total Protein Albumin Lmknu-1-Sqtmkvkzz Abnorm Protein Band 1 PEP Interpretation Crossmatch 10/15/16 10/15/16 10/15/16 05:35 05:35 05:35 WBC RBC Hgb Hct MCV MCHC RDW Plt Count Seg Neuts % (Manual) Lymphocytes % (Manual) Nucleated RBC % Seg Neutrophils # Man Lymphocytes # (Manual) Haptoglobin PT INR Fibrinogen Lupus Anticoagulant LA PTT Baseline POC ABG pH POC ABG pCO2 POC ABG pO2 Sodium 136 L Potassium 5.3 H D Chloride 91.4 L Carbon Dioxide 6 L* D BUN 57 H Creatinine 7.1 H Glucose 11 L* POC Glucose Lactic Acid 13.60 H* Uric Acid Calcium 7.7 L Phosphorus 10.10 H D Iron TIBC 166 L Erythropoietin Ferritin 9562.0 H Total Bilirubin Direct Bilirubin AST ALT Alkaline Phosphatase Lactate Dehydrogenase C-Reactive Protein Serum Total Protein Total Protein Albumin Tvppd-3-Mffezgzgc Abnorm Protein Band 1 PEP Interpretation Crossmatch 10/15/16 10/15/16 10/15/16 05:51 06:22 06:52 WBC RBC Hgb Hct MCV MCHC RDW Plt Count Seg Neuts % (Manual) Lymphocytes % (Manual) Nucleated RBC % Seg Neutrophils # Man Lymphocytes # (Manual) Haptoglobin PT INR Fibrinogen Lupus Anticoagulant LA PTT Baseline POC ABG pH 7.189 L POC ABG pCO2 28.9 L POC ABG pO2 Sodium Potassium Chloride Carbon Dioxide BUN Creatinine Glucose POC Glucose 59 L 111 H Lactic Acid Uric Acid Calcium Phosphorus Iron TIBC Erythropoietin Ferritin Total Bilirubin Direct Bilirubin AST ALT Alkaline Phosphatase Lactate Dehydrogenase C-Reactive Protein Serum Total Protein Total Protein Albumin Veqfk-6-Bgtfplooa Abnorm Protein Band 1 PEP Interpretation Crossmatch 10/15/16 10/15/16 10/15/16 08:00 09:57 11:42 WBC RBC Hgb Hct MCV MCHC RDW Plt Count Seg Neuts % (Manual) Lymphocytes % (Manual) Nucleated RBC % Seg Neutrophils # Man Lymphocytes # (Manual) Haptoglobin PT INR Fibrinogen Lupus Anticoagulant LA PTT Baseline POC ABG pH POC ABG pCO2 POC ABG pO2 Sodium Potassium Chloride Carbon Dioxide BUN Creatinine Glucose POC Glucose 63 L 143 H 203 H Lactic Acid Uric Acid Calcium Phosphorus Iron TIBC Erythropoietin Ferritin Total Bilirubin Direct Bilirubin AST ALT Alkaline Phosphatase Lactate Dehydrogenase C-Reactive Protein Serum Total Protein Total Protein Albumin Xstmr-5-Zzjzdzpdb Abnorm Protein Band 1 PEP Interpretation Crossmatch 10/15/16 10/15/16 10/15/16 12:00 12:00 13:00 WBC RBC Hgb Hct MCV MCHC RDW Plt Count Seg Neuts % (Manual) Lymphocytes % (Manual) Nucleated RBC % Seg Neutrophils # Man Lymphocytes # (Manual) Haptoglobin <15 L PT INR Fibrinogen Lupus Anticoagulant LA PTT Baseline POC ABG pH POC ABG pCO2 POC ABG pO2 Sodium Potassium Chloride Carbon Dioxide BUN Creatinine Glucose POC Glucose 136 H Lactic Acid 16.30 H* Uric Acid Calcium Phosphorus Iron TIBC Erythropoietin Ferritin Total Bilirubin Direct Bilirubin AST ALT Alkaline Phosphatase Lactate Dehydrogenase C-Reactive Protein Serum Total Protein Total Protein Albumin Lfrbo-0-Lsnyatsqi Abnorm Protein Band 1 PEP Interpretation Crossmatch 10/15/16 10/15/16 10/15/16 14:06 15:15 16:23 WBC RBC Hgb Hct MCV MCHC RDW Plt Count Seg Neuts % (Manual) Lymphocytes % (Manual) Nucleated RBC % Seg Neutrophils # Man Lymphocytes # (Manual) Haptoglobin PT INR Fibrinogen Lupus Anticoagulant LA PTT Baseline POC ABG pH POC ABG pCO2 POC ABG pO2 Sodium Potassium Chloride Carbon Dioxide BUN Creatinine Glucose POC Glucose 132 H 64 L Lactic Acid 20.40 H* Uric Acid Calcium Phosphorus Iron TIBC Erythropoietin Ferritin Total Bilirubin Direct Bilirubin AST ALT Alkaline Phosphatase Lactate Dehydrogenase C-Reactive Protein Serum Total Protein Total Protein Albumin Grrth-1-Vdebcglxq Abnorm Protein Band 1 PEP Interpretation Crossmatch 10/15/16 10/15/16 10/15/16 16:40 17:00 17:10 WBC RBC Hgb Hct MCV MCHC RDW Plt Count Seg Neuts % (Manual) Lymphocytes % (Manual) Nucleated RBC % Seg Neutrophils # Man Lymphocytes # (Manual) Haptoglobin PT INR Fibrinogen Lupus Anticoagulant LA PTT Baseline POC ABG pH 7.323 L POC ABG pCO2 25.8 L POC ABG pO2 135 H Sodium Potassium Chloride Carbon Dioxide BUN Creatinine Glucose POC Glucose 159 H Lactic Acid 20.20 H* Uric Acid Calcium Phosphorus Iron TIBC Erythropoietin Ferritin Total Bilirubin Direct Bilirubin AST ALT Alkaline Phosphatase Lactate Dehydrogenase C-Reactive Protein Serum Total Protein Total Protein Albumin Akqsy-3-Zdrnymxbp Abnorm Protein Band 1 PEP Interpretation Crossmatch 10/15/16 10/15/16 10/15/16 17:46 17:53 18:45 WBC RBC Hgb Hct MCV MCHC RDW Plt Count Seg Neuts % (Manual) Lymphocytes % (Manual) Nucleated RBC % Seg Neutrophils # Man Lymphocytes # (Manual) Haptoglobin PT INR Fibrinogen Lupus Anticoagulant LA PTT Baseline POC ABG pH POC ABG pCO2 POC ABG pO2 Sodium Potassium Chloride Carbon Dioxide BUN Creatinine Glucose POC Glucose 126 H 143 H Lactic Acid 21.40 H* Uric Acid Calcium Phosphorus Iron TIBC Erythropoietin Ferritin Total Bilirubin Direct Bilirubin AST ALT Alkaline Phosphatase Lactate Dehydrogenase C-Reactive Protein Serum Total Protein Total Protein Albumin Dyrxk-8-Rrbzptunf Abnorm Protein Band 1 PEP Interpretation Crossmatch 10/15/16 10/15/16 10/16/16 20:03 22:59 00:06 WBC RBC Hgb Hct MCV MCHC RDW Plt Count Seg Neuts % (Manual) Lymphocytes % (Manual) Nucleated RBC % Seg Neutrophils # Man Lymphocytes # (Manual) Haptoglobin PT INR Fibrinogen Lupus Anticoagulant LA PTT Baseline POC ABG pH POC ABG pCO2 POC ABG pO2 Sodium Potassium Chloride Carbon Dioxide BUN Creatinine Glucose POC Glucose 66 L 53 L 126 H Lactic Acid Uric Acid Calcium Phosphorus Iron TIBC Erythropoietin Ferritin Total Bilirubin Direct Bilirubin AST ALT Alkaline Phosphatase Lactate Dehydrogenase C-Reactive Protein Serum Total Protein Total Protein Albumin Qefym-3-Knegtkgmq Abnorm Protein Band 1 PEP Interpretation Crossmatch 10/16/16 10/16/16 10/16/16 01:03 03:55 04:00 WBC RBC Hgb Hct MCV MCHC RDW Plt Count Seg Neuts % (Manual) Lymphocytes % (Manual) Nucleated RBC % Seg Neutrophils # Man Lymphocytes # (Manual) Haptoglobin PT INR Fibrinogen Lupus Anticoagulant LA PTT Baseline POC ABG pH POC ABG pCO2 POC ABG pO2 Sodium Potassium Chloride Carbon Dioxide BUN Creatinine Glucose POC Glucose 107 H 260 H Lactic Acid 18.00 H* Uric Acid Calcium Phosphorus Iron TIBC Erythropoietin Ferritin Total Bilirubin Direct Bilirubin AST ALT Alkaline Phosphatase Lactate Dehydrogenase C-Reactive Protein Serum Total Protein Total Protein Albumin Tssuy-1-Znvqnhqmd Abnorm Protein Band 1 PEP Interpretation Crossmatch 10/16/16 10/16/16 10/16/16 04:03 07:58 08:34 WBC RBC Hgb Hct MCV MCHC RDW Plt Count Seg Neuts % (Manual) Lymphocytes % (Manual) Nucleated RBC % Seg Neutrophils # Man Lymphocytes # (Manual) Haptoglobin PT INR Fibrinogen Lupus Anticoagulant LA PTT Baseline POC ABG pH 7.527 H POC ABG pCO2 32.9 L POC ABG pO2 119 H Sodium Potassium Chloride Carbon Dioxide BUN Creatinine Glucose POC Glucose 120 H 66 L Lactic Acid Uric Acid Calcium Phosphorus Iron TIBC Erythropoietin Ferritin Total Bilirubin Direct Bilirubin AST ALT Alkaline Phosphatase Lactate Dehydrogenase C-Reactive Protein Serum Total Protein Total Protein Albumin Ruwfo-7-Eptkqrrku Abnorm Protein Band 1 PEP Interpretation Crossmatch 10/16/16 10/16/16 10/16/16 09:13 10:06 10:57 WBC RBC Hgb Hct MCV MCHC RDW Plt Count Seg Neuts % (Manual) Lymphocytes % (Manual) Nucleated RBC % Seg Neutrophils # Man Lymphocytes # (Manual) Haptoglobin PT INR Fibrinogen Lupus Anticoagulant LA PTT Baseline POC ABG pH POC ABG pCO2 POC ABG pO2 Sodium Potassium Chloride Carbon Dioxide BUN Creatinine Glucose POC Glucose 147 H 137 H 140 H Lactic Acid Uric Acid Calcium Phosphorus Iron TIBC Erythropoietin Ferritin Total Bilirubin Direct Bilirubin AST ALT Alkaline Phosphatase Lactate Dehydrogenase C-Reactive Protein Serum Total Protein Total Protein Albumin Zoces-5-Sndaphrsi Abnorm Protein Band 1 PEP Interpretation Crossmatch 10/16/16 10/16/16 10/16/16 11:15 11:15 11:15 WBC 25.8 H RBC 2.30 L Hgb 7.0 L Hct 22.3 L MCV 97 H MCHC 31 L RDW 21.2 H Plt Count 42 L Seg Neuts % (Manual) Lymphocytes % (Manual) 3.0 L Nucleated RBC % 2.0 H Seg Neutrophils # Man 11.1 H Lymphocytes # (Manual) 0.8 L Haptoglobin PT INR Fibrinogen Lupus Anticoagulant LA PTT Baseline POC ABG pH POC ABG pCO2 POC ABG pO2 Sodium Potassium Chloride 81.7 L Carbon Dioxide 13 L D BUN 61 H Creatinine 6.2 H Glucose 171 H POC Glucose Lactic Acid 22.70 H* Uric Acid Calcium 7.1 L Phosphorus 9.10 H Iron TIBC Erythropoietin Ferritin Total Bilirubin Direct Bilirubin AST ALT Alkaline Phosphatase Lactate Dehydrogenase C-Reactive Protein Serum Total Protein Total Protein Albumin Ykplo-2-Gopyybenp Abnorm Protein Band 1 PEP Interpretation Crossmatch 10/16/16 10/16/16 10/16/16 15:10 15:50 18:11 WBC RBC Hgb Hct MCV MCHC RDW Plt Count Seg Neuts % (Manual) Lymphocytes % (Manual) Nucleated RBC % Seg Neutrophils # Man Lymphocytes # (Manual) Haptoglobin PT INR Fibrinogen Lupus Anticoagulant LA PTT Baseline POC ABG pH POC ABG pCO2 POC ABG pO2 Sodium Potassium Chloride Carbon Dioxide BUN Creatinine Glucose POC Glucose 47 L 164 H 58 L Lactic Acid Uric Acid Calcium Phosphorus Iron TIBC Erythropoietin Ferritin Total Bilirubin Direct Bilirubin AST ALT Alkaline Phosphatase Lactate Dehydrogenase C-Reactive Protein Serum Total Protein Total Protein Albumin Xdwvv-1-Dxjvpmosg Abnorm Protein Band 1 PEP Interpretation Crossmatch 10/16/16 10/16/16 10/17/16 18:26 21:06 00:06 WBC RBC Hgb Hct MCV MCHC RDW Plt Count Seg Neuts % (Manual) Lymphocytes % (Manual) Nucleated RBC % Seg Neutrophils # Man Lymphocytes # (Manual) Haptoglobin PT INR Fibrinogen Lupus Anticoagulant LA PTT Baseline POC ABG pH POC ABG pCO2 POC ABG pO2 489 H Sodium Potassium Chloride Carbon Dioxide BUN Creatinine Glucose POC Glucose 52 L 120 H Lactic Acid Uric Acid Calcium Phosphorus Iron TIBC Erythropoietin Ferritin Total Bilirubin Direct Bilirubin AST ALT Alkaline Phosphatase Lactate Dehydrogenase C-Reactive Protein Serum Total Protein Total Protein Albumin Zkhtw-4-Pljlvzifj Abnorm Protein Band 1 PEP Interpretation Crossmatch 10/17/16 10/17/16 10/17/16 04:55 04:55 05:04 WBC 25.5 H RBC 2.23 L Hgb 6.6 L Hct 21.2 L MCV 95 H MCHC 31 L RDW 20.5 H Plt Count 35 L Seg Neuts % (Manual) 79.0 H Lymphocytes % (Manual) 0 L Nucleated RBC % Seg Neutrophils # Man 20.1 H Lymphocytes # (Manual) 0.0 L Haptoglobin PT INR Fibrinogen Lupus Anticoagulant LA PTT Baseline POC ABG pH POC ABG pCO2 27.2 L POC ABG pO2 162 H Sodium Potassium Chloride 91.5 L Carbon Dioxide 16 L BUN 45 H Creatinine 4.5 H Glucose 103 H POC Glucose Lactic Acid Uric Acid Calcium 6.9 L Phosphorus 5.80 H D Iron TIBC Erythropoietin Ferritin Total Bilirubin Direct Bilirubin AST ALT Alkaline Phosphatase Lactate Dehydrogenase C-Reactive Protein Serum Total Protein Total Protein Albumin Bvaym-9-Naqmgepqe Abnorm Protein Band 1 PEP Interpretation Crossmatch 10/17/16 10/17/16 10/17/16 07:59 09:04 10:04 WBC RBC Hgb Hct MCV MCHC RDW Plt Count Seg Neuts % (Manual) Lymphocytes % (Manual) Nucleated RBC % Seg Neutrophils # Man Lymphocytes # (Manual) Haptoglobin PT INR Fibrinogen Lupus Anticoagulant LA PTT Baseline POC ABG pH POC ABG pCO2 POC ABG pO2 Sodium Potassium Chloride Carbon Dioxide BUN Creatinine Glucose POC Glucose 65 L 118 H Lactic Acid Uric Acid Calcium Phosphorus Iron TIBC Erythropoietin Ferritin Total Bilirubin Direct Bilirubin AST ALT Alkaline Phosphatase Lactate Dehydrogenase C-Reactive Protein Serum Total Protein Total Protein Albumin Dthou-8-Vitjwtufd Abnorm Protein Band 1 PEP Interpretation Crossmatch See Detail 10/17/16 10/17/16 10/17/16 11:52 13:08 15:42 WBC RBC Hgb Hct MCV MCHC RDW Plt Count Seg Neuts % (Manual) Lymphocytes % (Manual) Nucleated RBC % Seg Neutrophils # Man Lymphocytes # (Manual) Haptoglobin PT INR Fibrinogen Lupus Anticoagulant LA PTT Baseline POC ABG pH POC ABG pCO2 POC ABG pO2 Sodium Potassium Chloride Carbon Dioxide BUN Creatinine Glucose POC Glucose 125 H 106 H 55 L Lactic Acid Uric Acid Calcium Phosphorus Iron TIBC Erythropoietin Ferritin Total Bilirubin Direct Bilirubin AST ALT Alkaline Phosphatase Lactate Dehydrogenase C-Reactive Protein Serum Total Protein Total Protein Albumin Xfhuz-4-Fuvvrnrdf Abnorm Protein Band 1 PEP Interpretation Crossmatch 10/17/16 10/17/16 10/17/16 17:39 20:37 21:02 WBC RBC Hgb Hct MCV MCHC RDW Plt Count Seg Neuts % (Manual) Lymphocytes % (Manual) Nucleated RBC % Seg Neutrophils # Man Lymphocytes # (Manual) Haptoglobin PT INR Fibrinogen Lupus Anticoagulant LA PTT Baseline POC ABG pH POC ABG pCO2 28.2 L POC ABG pO2 Sodium Potassium Chloride Carbon Dioxide BUN Creatinine Glucose POC Glucose < 40 L 106 H Lactic Acid Uric Acid Calcium Phosphorus Iron TIBC Erythropoietin Ferritin Total Bilirubin Direct Bilirubin AST ALT Alkaline Phosphatase Lactate Dehydrogenase C-Reactive Protein Serum Total Protein Total Protein Albumin Xfnfo-2-Pqcugkchs Abnorm Protein Band 1 PEP Interpretation Crossmatch 10/17/16 10/17/16 10/18/16 22:18 23:14 00:28 WBC RBC Hgb Hct MCV MCHC RDW Plt Count Seg Neuts % (Manual) Lymphocytes % (Manual) Nucleated RBC % Seg Neutrophils # Man Lymphocytes # (Manual) Haptoglobin PT INR Fibrinogen Lupus Anticoagulant LA PTT Baseline POC ABG pH POC ABG pCO2 POC ABG pO2 Sodium Potassium Chloride Carbon Dioxide BUN Creatinine Glucose POC Glucose 111 H 118 H 112 H Lactic Acid Uric Acid Calcium Phosphorus Iron TIBC Erythropoietin Ferritin Total Bilirubin Direct Bilirubin AST ALT Alkaline Phosphatase Lactate Dehydrogenase C-Reactive Protein Serum Total Protein Total Protein Albumin Ykbfm-6-Umnyvavcv Abnorm Protein Band 1 PEP Interpretation Crossmatch 10/18/16 10/18/16 10/18/16 05:00 05:00 05:15 WBC 27.3 H RBC 2.75 L Hgb 7.9 L Hct 25.3 L MCV MCHC 31 L RDW 20.7 H Plt Count 31 L Seg Neuts % (Manual) 87.0 H Lymphocytes % (Manual) 1.0 L Nucleated RBC % 1.0 H Seg Neutrophils # Man 23.8 H Lymphocytes # (Manual) 0.3 L Haptoglobin PT INR Fibrinogen Lupus Anticoagulant LA PTT Baseline POC ABG pH 7.466 H POC ABG pCO2 25.1 L POC ABG pO2 Sodium Potassium Chloride 88.7 L Carbon Dioxide 18 L BUN 66 H Creatinine 4.7 H Glucose POC Glucose Lactic Acid Uric Acid Calcium 6.1 L Phosphorus 7.30 H D Iron TIBC Erythropoietin Ferritin Total Bilirubin Direct Bilirubin AST ALT Alkaline Phosphatase Lactate Dehydrogenase C-Reactive Protein Serum Total Protein Total Protein Albumin Mzogz-8-Ghfftgvwq Abnorm Protein Band 1 PEP Interpretation Crossmatch 10/18/16 10/18/16 10/18/16 07:15 07:44 09:07 WBC RBC Hgb Hct MCV MCHC RDW Plt Count Seg Neuts % (Manual) Lymphocytes % (Manual) Nucleated RBC % Seg Neutrophils # Man Lymphocytes # (Manual) Haptoglobin PT INR Fibrinogen Lupus Anticoagulant LA PTT Baseline POC ABG pH POC ABG pCO2 POC ABG pO2 Sodium Potassium Chloride Carbon Dioxide BUN Creatinine Glucose POC Glucose 64 L 156 H 117 H Lactic Acid Uric Acid Calcium Phosphorus Iron TIBC Erythropoietin Ferritin Total Bilirubin Direct Bilirubin AST ALT Alkaline Phosphatase Lactate Dehydrogenase C-Reactive Protein Serum Total Protein Total Protein Albumin Gxndr-2-Sdctjjvgf Abnorm Protein Band 1 PEP Interpretation Crossmatch 10/18/16 10/18/16 10/18/16 09:15 14:00 18:21 WBC RBC Hgb Hct MCV MCHC RDW Plt Count Seg Neuts % (Manual) Lymphocytes % (Manual) Nucleated RBC % Seg Neutrophils # Man Lymphocytes # (Manual) Haptoglobin PT INR Fibrinogen Lupus Anticoagulant LA PTT Baseline POC ABG pH POC ABG pCO2 POC ABG pO2 Sodium Potassium Chloride Carbon Dioxide BUN Creatinine Glucose POC Glucose 106 H 112 H Lactic Acid 14.30 H* Uric Acid Calcium Phosphorus Iron TIBC Erythropoietin Ferritin Total Bilirubin Direct Bilirubin AST ALT Alkaline Phosphatase Lactate Dehydrogenase C-Reactive Protein Serum Total Protein Total Protein Albumin Dgbfr-1-Ydgvozslw Abnorm Protein Band 1 PEP Interpretation Crossmatch 10/18/16 10/18/16 10/18/16 19:58 20:55 22:11 WBC RBC Hgb Hct MCV MCHC RDW Plt Count Seg Neuts % (Manual) Lymphocytes % (Manual) Nucleated RBC % Seg Neutrophils # Man Lymphocytes # (Manual) Haptoglobin PT INR Fibrinogen Lupus Anticoagulant LA PTT Baseline POC ABG pH POC ABG pCO2 POC ABG pO2 Sodium Potassium Chloride Carbon Dioxide BUN Creatinine Glucose POC Glucose 127 H 125 H 159 H Lactic Acid Uric Acid Calcium Phosphorus Iron TIBC Erythropoietin Ferritin Total Bilirubin Direct Bilirubin AST ALT Alkaline Phosphatase Lactate Dehydrogenase C-Reactive Protein Serum Total Protein Total Protein Albumin Lrozn-1-Iwiuqaaer Abnorm Protein Band 1 PEP Interpretation Crossmatch 10/18/16 10/18/16 10/19/16 23:11 23:57 01:06 WBC RBC Hgb Hct MCV MCHC RDW Plt Count Seg Neuts % (Manual) Lymphocytes % (Manual) Nucleated RBC % Seg Neutrophils # Man Lymphocytes # (Manual) Haptoglobin PT INR Fibrinogen Lupus Anticoagulant LA PTT Baseline POC ABG pH POC ABG pCO2 POC ABG pO2 Sodium Potassium Chloride Carbon Dioxide BUN Creatinine Glucose POC Glucose 122 H 137 H 162 H Lactic Acid Uric Acid Calcium Phosphorus Iron TIBC Erythropoietin Ferritin Total Bilirubin Direct Bilirubin AST ALT Alkaline Phosphatase Lactate Dehydrogenase C-Reactive Protein Serum Total Protein Total Protein Albumin Ojxqr-0-Mnwhvrhhs Abnorm Protein Band 1 PEP Interpretation Crossmatch 05/10/19/16 10/19/16 01:59 03:07 04:10 WBC RBC Hgb Hct MCV MCHC RDW Plt Count Seg Neuts % (Manual) Lymphocytes % (Manual) Nucleated RBC % Seg Neutrophils # Man Lymphocytes # (Manual) Haptoglobin PT INR Fibrinogen Lupus Anticoagulant LA PTT Baseline POC ABG pH POC ABG pCO2 POC ABG pO2 Sodium Potassium Chloride Carbon Dioxide BUN Creatinine Glucose POC Glucose 154 H 178 H 186 H Lactic Acid Uric Acid Calcium Phosphorus Iron TIBC Erythropoietin Ferritin Total Bilirubin Direct Bilirubin AST ALT Alkaline Phosphatase Lactate Dehydrogenase C-Reactive Protein Serum Total Protein Total Protein Albumin Bbjqe-4-Ebvtsslfg Abnorm Protein Band 1 PEP Interpretation Crossmatch 10/19/16 10/19/16 10/19/16 05:14 05:15 05:47 WBC RBC Hgb Hct MCV MCHC RDW Plt Count Seg Neuts % (Manual) Lymphocytes % (Manual) Nucleated RBC % Seg Neutrophils # Man Lymphocytes # (Manual) Haptoglobin PT INR Fibrinogen Lupus Anticoagulant LA PTT Baseline POC ABG pH 7.581 H POC ABG pCO2 22.9 L POC ABG pO2 58 L Sodium Potassium Chloride Carbon Dioxide BUN Creatinine Glucose POC Glucose 197 H 204 H Lactic Acid Uric Acid Calcium Phosphorus Iron TIBC Erythropoietin Ferritin Total Bilirubin Direct Bilirubin AST ALT Alkaline Phosphatase Lactate Dehydrogenase C-Reactive Protein Serum Total Protein Total Protein Albumin Jfkmz-7-Nkpngnkbb Abnorm Protein Band 1 PEP Interpretation Crossmatch 10/19/16 10/19/16 10/19/16 06:00 06:00 07:51 WBC 23.0 H RBC 2.54 L Hgb 7.5 L Hct 23.0 L MCV MCHC RDW 20.7 H Plt Count 25 L Seg Neuts % (Manual) 91.0 H Lymphocytes % (Manual) 2.0 L Nucleated RBC % 1.0 H Seg Neutrophils # Man 20.9 H Lymphocytes # (Manual) 0.5 L Haptoglobin PT INR Fibrinogen Lupus Anticoagulant LA PTT Baseline POC ABG pH POC ABG pCO2 POC ABG pO2 Sodium Potassium Chloride 88.7 L Carbon Dioxide 21 L BUN 70 H Creatinine 3.9 H Glucose 189 H POC Glucose 145 H Lactic Acid Uric Acid Calcium 5.6 L* Phosphorus 6.30 H Iron TIBC Erythropoietin Ferritin Total Bilirubin Direct Bilirubin AST ALT Alkaline Phosphatase Lactate Dehydrogenase C-Reactive Protein Serum Total Protein Total Protein Albumin Ixiog-5-Ufbittrzr Abnorm Protein Band 1 PEP Interpretation Crossmatch 10/19/16 10/19/16 10/19/16 09:14 10:01 12:14 WBC RBC Hgb Hct MCV MCHC RDW Plt Count Seg Neuts % (Manual) Lymphocytes % (Manual) Nucleated RBC % Seg Neutrophils # Man Lymphocytes # (Manual) Haptoglobin PT INR Fibrinogen Lupus Anticoagulant LA PTT Baseline POC ABG pH POC ABG pCO2 POC ABG pO2 Sodium Potassium Chloride Carbon Dioxide BUN Creatinine Glucose POC Glucose 173 H 153 H 180 H Lactic Acid Uric Acid Calcium Phosphorus Iron TIBC Erythropoietin Ferritin Total Bilirubin Direct Bilirubin AST ALT Alkaline Phosphatase Lactate Dehydrogenase C-Reactive Protein Serum Total Protein Total Protein Albumin Nqefr-8-Dpamuhtfb Abnorm Protein Band 1 PEP Interpretation Crossmatch 10/19/16 10/19/16 10/19/16 14:15 16:38 20:27 WBC RBC Hgb Hct MCV MCHC RDW Plt Count Seg Neuts % (Manual) Lymphocytes % (Manual) Nucleated RBC % Seg Neutrophils # Man Lymphocytes # (Manual) Haptoglobin PT INR Fibrinogen Lupus Anticoagulant LA PTT Baseline POC ABG pH POC ABG pCO2 POC ABG pO2 Sodium Potassium Chloride Carbon Dioxide BUN Creatinine Glucose POC Glucose 194 H 202 H Lactic Acid Uric Acid Calcium Phosphorus Iron TIBC Erythropoietin 148.2 H Ferritin Total Bilirubin Direct Bilirubin AST ALT Alkaline Phosphatase Lactate Dehydrogenase C-Reactive Protein Serum Total Protein Total Protein Albumin Dgrgb-2-Tpfpxjvvr Abnorm Protein Band 1 PEP Interpretation Crossmatch 10/19/16 10/20/16 10/20/16 23:27 04:06 05:00 WBC RBC Hgb Hct MCV MCHC RDW Plt Count Seg Neuts % (Manual) Lymphocytes % (Manual) Nucleated RBC % Seg Neutrophils # Man Lymphocytes # (Manual) Haptoglobin PT INR Fibrinogen Lupus Anticoagulant LA PTT Baseline POC ABG pH POC ABG pCO2 POC ABG pO2 Sodium Potassium Chloride 88.8 L Carbon Dioxide BUN 93 H Creatinine 4.3 H Glucose 204 H POC Glucose 201 H 200 H Lactic Acid Uric Acid Calcium 5.2 L* Phosphorus Iron TIBC Erythropoietin Ferritin Total Bilirubin Direct Bilirubin AST ALT Alkaline Phosphatase Lactate Dehydrogenase C-Reactive Protein Serum Total Protein Total Protein Albumin Sfhpv-2-Xalewswth Abnorm Protein Band 1 PEP Interpretation Crossmatch 10/20/16 10/20/16 10/20/16 05:16 06:00 07:43 WBC 24.8 H RBC 2.52 L Hgb 7.4 L Hct 22.9 L MCV MCHC RDW 19.9 H Plt Count 23 L Seg Neuts % (Manual) 97.0 H Lymphocytes % (Manual) 1.0 L Nucleated RBC % 9.0 H Seg Neutrophils # Man 24.1 H Lymphocytes # (Manual) 0.2 L Haptoglobin PT INR Fibrinogen Lupus Anticoagulant LA PTT Baseline POC ABG pH 7.463 H POC ABG pCO2 POC ABG pO2 157 H Sodium Potassium Chloride Carbon Dioxide BUN Creatinine Glucose POC Glucose 192 H Lactic Acid Uric Acid Calcium Phosphorus Iron TIBC Erythropoietin Ferritin Total Bilirubin Direct Bilirubin AST ALT Alkaline Phosphatase Lactate Dehydrogenase C-Reactive Protein Serum Total Protein Total Protein Albumin Irdme-7-Rwddufmjp Abnorm Protein Band 1 PEP Interpretation Crossmatch 10/20/16 10/20/16 10/20/16 12:11 15:32 21:23 WBC RBC Hgb Hct MCV MCHC RDW Plt Count Seg Neuts % (Manual) Lymphocytes % (Manual) Nucleated RBC % Seg Neutrophils # Man Lymphocytes # (Manual) Haptoglobin PT INR Fibrinogen Lupus Anticoagulant LA PTT Baseline POC ABG pH POC ABG pCO2 POC ABG pO2 Sodium Potassium Chloride Carbon Dioxide BUN Creatinine Glucose POC Glucose 172 H 216 H 271 H Lactic Acid Uric Acid Calcium Phosphorus Iron TIBC Erythropoietin Ferritin Total Bilirubin Direct Bilirubin AST ALT Alkaline Phosphatase Lactate Dehydrogenase C-Reactive Protein Serum Total Protein Total Protein Albumin Rvems-5-Dmmuhfdef Abnorm Protein Band 1 PEP Interpretation Crossmatch 10/20/16 10/21/16 10/21/16 23:49 03:53 04:58 WBC RBC Hgb Hct MCV MCHC RDW Plt Count Seg Neuts % (Manual) Lymphocytes % (Manual) Nucleated RBC % Seg Neutrophils # Man Lymphocytes # (Manual) Haptoglobin PT INR Fibrinogen Lupus Anticoagulant LA PTT Baseline POC ABG pH 7.459 H POC ABG pCO2 POC ABG pO2 113 H Sodium 136 L Potassium 2.8 L* D Chloride 91.6 L Carbon Dioxide BUN 62 H Creatinine 2.8 H Glucose 236 H POC Glucose 317 H Lactic Acid Uric Acid Calcium 6.2 L D Phosphorus Iron TIBC Erythropoietin Ferritin Total Bilirubin 2.70 H Direct Bilirubin AST 73 H ALT 57 H Alkaline Phosphatase 158 H Lactate Dehydrogenase C-Reactive Protein Serum Total Protein Total Protein 4.9 L Albumin 2.6 L Xhuqm-4-Cmsmxhgwe Abnorm Protein Band 1 PEP Interpretation Crossmatch 10/21/16 10/21/16 10/21/16 05:25 07:11 10:30 WBC 28.1 H RBC 2.36 L Hgb 7.0 L Hct 21.6 L MCV MCHC RDW 20.0 H Plt Count 14 L* Seg Neuts % (Manual) 92.0 H Lymphocytes % (Manual) 0 L Nucleated RBC % 5.0 H Seg Neutrophils # Man 25.9 H Lymphocytes # (Manual) 0.0 L Haptoglobin PT INR Fibrinogen Lupus Anticoagulant LA PTT Baseline POC ABG pH POC ABG pCO2 POC ABG pO2 Sodium Potassium Chloride Carbon Dioxide BUN Creatinine Glucose POC Glucose 237 H 206 H Lactic Acid Uric Acid Calcium Phosphorus Iron TIBC Erythropoietin Ferritin Total Bilirubin Direct Bilirubin AST ALT Alkaline Phosphatase Lactate Dehydrogenase C-Reactive Protein Serum Total Protein Total Protein Albumin Sqbye-3-Mtnfizmfr Abnorm Protein Band 1 PEP Interpretation Crossmatch 10/21/16 10/21/16 10/21/16 11:25 12:31 16:33 WBC RBC Hgb Hct MCV MCHC RDW Plt Count Seg Neuts % (Manual) Lymphocytes % (Manual) Nucleated RBC % Seg Neutrophils # Man Lymphocytes # (Manual) Haptoglobin PT 49.1 H INR 5.28 H* Fibrinogen Lupus Anticoagulant LA PTT Baseline POC ABG pH POC ABG pCO2 POC ABG pO2 Sodium Potassium Chloride Carbon Dioxide BUN Creatinine Glucose POC Glucose 145 H 151 H Lactic Acid Uric Acid Calcium Phosphorus Iron TIBC Erythropoietin Ferritin Total Bilirubin Direct Bilirubin AST ALT Alkaline Phosphatase Lactate Dehydrogenase C-Reactive Protein Serum Total Protein Total Protein Albumin Gtmym-1-Gcwiwhztg Abnorm Protein Band 1 PEP Interpretation Crossmatch 10/21/16 10/22/16 10/22/16 19:53 00:00 05:23 WBC RBC Hgb Hct MCV MCHC RDW Plt Count Seg Neuts % (Manual) Lymphocytes % (Manual) Nucleated RBC % Seg Neutrophils # Man Lymphocytes # (Manual) Haptoglobin PT INR Fibrinogen Lupus Anticoagulant LA PTT Baseline POC ABG pH POC ABG pCO2 POC ABG pO2 Sodium Potassium Chloride Carbon Dioxide BUN Creatinine Glucose POC Glucose 170 H 168 H 131 H Lactic Acid Uric Acid Calcium Phosphorus Iron TIBC Erythropoietin Ferritin Total Bilirubin Direct Bilirubin AST ALT Alkaline Phosphatase Lactate Dehydrogenase C-Reactive Protein Serum Total Protein Total Protein Albumin Xjozq-7-Vqxbyztmk Abnorm Protein Band 1 PEP Interpretation Crossmatch 10/22/16 10/22/16 10/22/16 05:25 05:35 13:03 WBC RBC Hgb Hct MCV MCHC RDW Plt Count Seg Neuts % (Manual) Lymphocytes % (Manual) Nucleated RBC % Seg Neutrophils # Man Lymphocytes # (Manual) Haptoglobin PT INR Fibrinogen Lupus Anticoagulant LA PTT Baseline POC ABG pH 7.462 H POC ABG pCO2 POC ABG pO2 Sodium 135 L Potassium 3.0 L Chloride 88.5 L Carbon Dioxide BUN 84 H Creatinine 3.4 H Glucose 124 H POC Glucose 164 H Lactic Acid Uric Acid Calcium 5.9 L* Phosphorus Iron TIBC Erythropoietin Ferritin Total Bilirubin 2.00 H Direct Bilirubin AST 85 H ALT Alkaline Phosphatase 199 H Lactate Dehydrogenase C-Reactive Protein Serum Total Protein Total Protein 5.0 L Albumin 2.5 L Grvuh-2-Hfhmalwfj Abnorm Protein Band 1 PEP Interpretation Crossmatch 10/22/16 10/22/16 10/23/16 17:14 23:16 04:47 WBC RBC Hgb Hct MCV MCHC RDW Plt Count Seg Neuts % (Manual) Lymphocytes % (Manual) Nucleated RBC % Seg Neutrophils # Man Lymphocytes # (Manual) Haptoglobin PT INR Fibrinogen Lupus Anticoagulant LA PTT Baseline POC ABG pH 7.476 H POC ABG pCO2 POC ABG pO2 108 H Sodium Potassium Chloride Carbon Dioxide BUN Creatinine Glucose POC Glucose 188 H 167 H Lactic Acid Uric Acid Calcium Phosphorus Iron TIBC Erythropoietin Ferritin Total Bilirubin Direct Bilirubin AST ALT Alkaline Phosphatase Lactate Dehydrogenase C-Reactive Protein Serum Total Protein Total Protein Albumin Tdccg-0-Timjnooit Abnorm Protein Band 1 PEP Interpretation Crossmatch 10/23/16 10/23/16 10/23/16 05:49 07:00 07:12 WBC 24.2 H RBC 2.27 L Hgb 7.0 L Hct 21.1 L MCV MCHC RDW 19.7 H Plt Count 35 L D Seg Neuts % (Manual) Lymphocytes % (Manual) Nucleated RBC % Seg Neutrophils # Man Lymphocytes # (Manual) Haptoglobin PT INR Fibrinogen Lupus Anticoagulant LA PTT Baseline POC ABG pH POC ABG pCO2 POC ABG pO2 Sodium Potassium 3.5 L Chloride 95.7 L Carbon Dioxide BUN 55 H Creatinine 2.7 H Glucose 103 H POC Glucose 106 H Lactic Acid Uric Acid Calcium 7.1 L D Phosphorus Iron TIBC Erythropoietin Ferritin Total Bilirubin Direct Bilirubin AST ALT Alkaline Phosphatase Lactate Dehydrogenase C-Reactive Protein Serum Total Protein Total Protein Albumin Pqwnr-0-Asfczvsnf Abnorm Protein Band 1 PEP Interpretation Crossmatch Allied health notes reviewed: RT
--- NOTE | 2016-10-23 14:20 | Progress Note ---
Assessment and Plan Assessment and plan: Patient is a 61-year-old man with no significant past medical history who presented to the emergency department [facility] 10/13/16, complaining of bilateral leg swelling that worsened for the last 4 days. He was found to have severe metabolic acidosis, creatinine was 14.5 with hyperkalemia, emergent Hemodialysis was set up. He was found to have severe pancytopenia and thrombocytopenia. Dr. 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 He was on bipap and was intubated 10/16/16, details are not readily available on why he needed to be intubated, no nursing note for . -Acute encephalopathy, not sedated, will consult Neurology. 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 Follow up on respiratory failure, patient still intubated. Overnight uneventful. No cp, sob, n/v or severe headaches. Imaging, old records, testing, labs, nursing notes reviewed. Hospitalist Physical - Physical exam Narrative exam: GEN: Critically ill intubated but not sedated HEENT: Eyes are floating, ET tube in place CVS: irregular, NORMAL S1S2 LUNGS/CHEST: NORMAL CHEST EXPANSION B, GOOD AIR ENTRY B ABD: SOFT, POSITIVE BOWEL SOUNDS, NONDISTENDED, NO REBOUND OR GUARDING NEURO: CN 2-12 GROSSLY INTACT, he doesn't follow commands PSY: Unresponsive - Constitutional Vitals: Temp Pulse Resp BP Pulse Ox 97.5 F L 111 H 15 136/81 98 10/23/16 12:00 10/23/16 13:00 10/23/16 13:00 10/23/16 13:00 10/23/16 13:00 General appearance: Absent: well-nourished Results - Labs CBC & Chem 7: 10/23/16 07:00 10/23/16 07:12 Labs: Laboratory Last Values WBC 24.2 K/mm3 (4.5-11.0) H 10/23/16 07:00 RBC 2.27 M/mm3 (3.65-5.03) L 10/23/16 07:00 Hgb 7.0 gm/dl (11.8-15.2) L 10/23/16 07:00 Hct 21.1 % (35.5-45.6) L 10/23/16 07:00 MCV 93 fl (84-94) 10/23/16 07:00 MCH 31 pg (28-32) 10/23/16 07:00 MCHC 33 % (32-34) 10/23/16 07:00 RDW 19.7 % (13.2-15.2) H 10/23/16 07:00 Plt Count 35 K/mm3 (140-440) L D 10/23/16 07:00 Lymph % (Auto) Grill Chef 10/14/16 04:34 [place] % (Auto) Grill Chef 10/14/16 04:34 Eos % (Auto) Grill Chef 10/14/16 04:34 Baso % (Auto) Grill Chef 10/14/16 04:34 Lymph # Grill Chef 10/14/16 04:34 [place] # Grill Chef 10/14/16 04:34 Eos # Grill Chef 10/14/16 04:34 Baso # Grill Chef 10/14/16 04:34 Add Manual Diff Complete 10/21/16 10:30 Total Counted 100 10/21/16 10:30 Seg Neutrophils % Grill Chef 10/21/16 10:30 Seg Neuts % (Manual) 92.0 % (40.0-70.0) H 10/21/16 10:30 Band Neutrophils % 5.0 % 10/21/16 10:30 Lymphocytes % (Manual) 0 % (13.4-35.0) L 10/21/16 10:30 Reactive Lymphs % (Man) 0 % 10/21/16 10:30 Monocytes % (Manual) 0 % (0.0-7.3) 10/21/16 10:30 Eosinophils % (Manual) 0 % (0.0-4.3) 10/21/16 10:30 Basophils % (Manual) 0 % (0.0-1.8) 10/21/16 10:30 Metamyelocytes % 2.0 % 10/21/16 10:30 Myelocytes % 0 % 10/21/16 10:30 Promyelocytes % 1.0 % 10/21/16 10:30 Blast Cells % 0 % 10/21/16 10:30 Nucleated RBC % 5.0 % (0.0-0.9) H 10/21/16 10:30 Seg Neutrophils # Grill Chef 10/14/16 04:34 Seg Neutrophils # Man 25.9 K/mm3 (1.8-7.7) H 10/21/16 10:30 Band Neutrophils # 1.4 K/mm3 10/21/16 10:30 Lymphocytes # (Manual) 0.0 K/mm3 (1.2-5.4) L 10/21/16 10:30 Abs React Lymphs (Man) 0.0 K/mm3 10/21/16 10:30 Monocytes # (Manual) 0.0 K/mm3 (0.0-0.8) 10/21/16 10:30 Eosinophils # (Manual) 0.0 K/mm3 (0.0-0.4) 10/21/16 10:30 Basophils # (Manual) 0.0 K/mm3 (0.0-0.1) 10/21/16 10:30 Metamyelocytes # 0.6 K/mm3 10/21/16 10:30 Myelocytes # 0.0 K/mm3 10/21/16 10:30 Promyelocytes # 0.3 K/mm3 10/21/16 10:30 Blast Cells # 0.0 K/mm3 10/21/16 10:30 WBC Morphology Not Reportable 10/21/16 10:30 Hypersegmented Neuts Not Reportable 10/21/16 10:30 Hyposegmented Neuts Not Reportable 10/21/16 10:30 Hypogranular Neuts Not Reportable 10/21/16 10:30 Smudge Cells Not Reportable 10/21/16 10:30 Toxic Granulation Not Reportable 10/21/16 10:30 Toxic Vacuolation Not Reportable 10/21/16 10:30 Dohle Bodies Not Reportable 10/21/16 10:30 Pelger-Huet Anomaly Not Reportable 10/21/16 10:30 Madhu Rods Not Reportable 10/21/16 10:30 Platelet Estimate Appears decreased 10/21/16 10:30 Clumped Platelets Not Reportable 10/21/16 10:30 Plt Clumps, EDTA Not Reportable 10/21/16 10:30 Large Platelets Not Reportable 10/21/16 10:30 Giant Platelets Rare 10/21/16 10:30 Platelet Satelliting Not Reportable 10/21/16 10:30 Plt Morphology Comment Not Reportable 10/21/16 10:30 RBC Morphology Not Reportable 10/21/16 10:30 Dimorphic RBCs Not Reportable 10/21/16 10:30 Polychromasia 1+ 10/21/16 10:30 Hypochromasia 1+ 10/21/16 10:30 Poikilocytosis Not Reportable 10/21/16 10:30 Basophilic Stippling Rare 10/21/16 10:30 Anisocytosis 2+ 10/21/16 10:30 Microcytosis Not Reportable 10/21/16 10:30 Macrocytosis Not Reportable 10/21/16 10:30 Spherocytes Not Reportable 10/21/16 10:30 Pappenheimer Bodies Not Reportable 10/21/16 10:30 Sickle Cells Not Reportable 10/21/16 10:30 Target Cells Not Reportable 10/21/16 10:30 Tear Drop Cells Not Reportable 10/21/16 10:30 Ovalocytes 1+ 10/21/16 10:30 Stomatocytes Few 10/21/16 10:30 Helmet Cells Rare 10/21/16 10:30 Goodman-Red Bud Bodies Not Reportable 10/21/16 10:30 [place] Rings Not Reportable 10/21/16 10:30 Sabrina Cells Not Reportable 10/21/16 10:30 Bite Cells Not Reportable 10/21/16 10:30 Crenated Cell Not Reportable 10/21/16 10:30 Elliptocytes Few 10/21/16 10:30 Acanthocytes (Spur) Not Reportable 10/21/16 10:30 Rouleaux Not Reportable 10/21/16 10:30 Hemoglobin C Crystals Not Reportable 10/21/16 10:30 Schistocytes Not Reportable 10/21/16 10:30 Malaria parasites Not Reportable 10/21/16 10:30 ESR 77 mm/Hr (0-20) 10/14/16 04:34 Pal Bodies Not Reportable 10/21/16 10:30 Haptoglobin <15 mg/dL (43-212) L 10/15/16 12:00 Hem Pathologist Commnt No 10/21/16 10:30 PT 49.1 Sec. (12.2-14.9) H 10/21/16 11:25 INR 5.28 (0.87-1.13) H* 10/21/16 11:25 Fibrinogen 557 mg/dl (211-480) H 10/14/16 09:58 Lupus Anticoagulant see below H 10/14/16 03:00 LA PTT Baseline 55 sec (<=40) H 10/14/16 03:00 dRVVT Confirm Interp Negative (Negative) 10/14/16 03:00 POC ABG pH 7.476 (7.35-7.45) H 10/23/16 04:47 POC ABG pCO2 37.4 (35-45) 10/23/16 04:47 POC ABG pO2 108 (80-105) H 10/23/16 04:47 POC ABG HCO3 27.6 10/23/16 04:47 POC ABG Total CO2 29 10/23/16 04:47 POC ABG O2 Sat 99 10/23/16 04:47 POC ABG Base Excess 4 10/23/16 04:47 FiO2 25 % 10/23/16 04:47 Sodium 141 mmol/L (137-145) 10/23/16 07:12 Potassium 3.5 mmol/L (3.6-5.0) L 10/23/16 07:12 Chloride 95.7 mmol/L (98-107) L 10/23/16 07:12 Carbon Dioxide 28 mmol/L (22-30) 10/23/16 07:12 Anion Gap 21 mmol/L 10/23/16 07:12 BUN 55 mg/dL (9-20) H 10/23/16 07:12 Creatinine 2.7 mg/dL (0.8-1.5) H 10/23/16 07:12 Estimated GFR 24 ml/min 10/23/16 07:12 BUN/Creatinine Ratio 20.37 % 10/23/16 07:12 Glucose 103 mg/dL (75-100) H 10/23/16 07:12 POC Glucose 94 (70-105) 10/23/16 11:08 Lactic Acid 14.30 mmol/L (0.7-2.0) H* 10/18/16 09:15 Uric Acid 8.0 mg/dL (3.5-7.6) H 10/14/16 03:00 Calcium 7.1 mg/dL (8.4-10.2) L D 10/23/16 07:12 Phosphorus 6.30 mg/dL (2.5-4.5) H 10/19/16 06:00 Iron 146 ug/dL (49-181) 10/15/16 05:35 TIBC 166 mcg/dL (250-450) L 10/15/16 05:35 Erythropoietin 148.2 mIU/mL (2.6-18.5) H 10/19/16 14:15 Ferritin 9562.0 ng/mL (13.0-400.0) H 10/15/16 05:35 Total Bilirubin 2.00 mg/dL (0.1-1.2) H 10/22/16 05:25 Direct Bilirubin 1.1 mg/dL (0-0.2) H 10/14/16 09:58 Indirect Bilirubin 0.2 mg/dL 10/14/16 09:58 AST 85 units/L (5-40) H 10/22/16 05:25 ALT 52 units/L (7-56) 10/22/16 05:25 Alkaline Phosphatase 199 units/L (35-129) H 10/22/16 05:25 Ammonia 32.0 umol/L (25-60) 10/19/16 14:15 Lactate Dehydrogenase 3871 units/L (91-180) H 10/15/16 05:35 Troponin T 0.079 ng/mL (0.00-0.029) H 10/13/16 10:14 C-Reactive Protein 40.40 mg/dL (0.00-1.30) H 10/14/16 12:52 NT-Pro-B Natriuret Pep > 64713 pg/mL (0-900) H 10/13/16 10:14 Serum Total Protein 5.6 g/dL (6.1-8.1) L 10/13/16 14:50 Total Protein 5.0 g/dL (6.3-8.2) L 10/22/16 05:25 Albumin 2.5 g/dL (3.9-5) L 10/22/16 05:25 Albumin/Globulin Ratio 1.0 % 10/22/16 05:25 Drdzh-5-Xhqjnoidp 0.5 g/dL (0.2-0.3) H 10/13/16 14:50 Iyurl-4-Crqkayrzb 0.6 g/dL (0.5-0.9) 10/13/16 14:50 Beta Globulins 0.3 g/dL (0.2-0.5) 10/13/16 14:50 Gamma Globulins 1.7 g/dL (0.8-1.7) 10/13/16 14:50 Abnorm Protein Band 1 1.4 g/dL H 10/13/16 14:50 PEP Interpretation see below H 10/13/16 14:50 Triglycerides 119 mg/dL (2-149) 10/13/16 10:14 Cholesterol 71 mg/dL (50-199) 10/13/16 10:14 LDL Cholesterol Direct 41 mg/dL (50-130) L 10/13/16 10:14 HDL Cholesterol 7 mg/dL (40-59) L 10/13/16 10:14 Cholesterol/HDL Ratio 10.14 % 10/13/16 10:14 Lipase 21 units/L (13-60) 10/15/16 05:35 Vitamin B12 893.9 pg/mL (211-911) 10/14/16 03:00 TSH 0.526 mlU/mL (0.270-4.200) 10/19/16 14:15 Random Vancomycin 9.6 ug/mL (0-40.0) 10/23/16 07:00 IgG 1040 mg/dL (694-1618) 10/19/16 14:15 IgA 149 mg/dL (81-463) 10/19/16 14:15 XU Screen Negative (Negative) 10/13/16 14:50 Proteinase 3 (PR3) Ab <1.0 AI (<1.0) 10/13/16 14:50 Myeloperoxidase Ab <1.0 AI (<1.0) 10/13/16 14:50 Glomerular Base Mem IgG <1.0 AI (<1.0) 10/13/16 14:50 Complement C3 101 mg/dL (90-180) 10/13/16 14:50 Complement C4 16 mg/dL (16-47) 10/13/16 14:50 Hep Bs Antigen Non-reactive (Negative) 10/13/16 14:50 Hepatitis C Antibody Non-reactive (NonReactive) 10/13/16 14:50 HIV 1&2 Antibody Rapid Non react (Non React) 10/13/16 14:50 HIV P24 Antigen Non react (Non React) 10/13/16 14:50 Schistocytes Smear None seen 10/15/16 12:00 Flow Intrp 16+ Markers Scanned into [facility] rec 10/14/16 11:30 Flow Cytometry Interp Scanned into [facility] rec 10/14/16 11:30 Blood Type O POSITIVE 10/17/16 07:59 Antibody Screen TNR 10/17/16 07:59 MADIHA Antibody Screen Negative 10/17/16 07:59 Direct Antiglob Test Negative 10/14/16 03:00 ELAINE, Poly Interpret Negative 10/14/16 03:00 Crossmatch See Detail 10/17/16 07:59
--- NOTE | 2016-10-23 14:49 | Progress Note ---
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 Acute respiratory failure - intubated. Sepsis / beta hemolitic strep bacterimia / leukocytosis Paroxysmal atrial fibrillation with variable ventricular response --> SR Acute metabolic encephalopathy ARF on CKD - requiring HD Profound metabolic acidemia/lactic acidosis Anemia / thrombocytopenia Hypocalcemia Plan: Stop amiodarone. Try to keep K around 4.Then will Dc amoidarone because of increased INR and jaundice. Liver injury. Given anemia and thrombocytopenia, would defer systemic anticoagulation for now. Second blood culture with no growth after 72 hours. However, will consider JONATHAN next week if recommended per ID. Consider ischemic evaluation when medically stabilized. No ACEI/ARB in setting of ARF on CKD. No BB in setting of hypotension. Watch volume status closely Poor prognosis Subjective Principal diagnosis: Sepsis Syndrome; MAHA; RAJESH; CHF Interval history: Paient is on respirator. VS stable. Objective Vital Signs Temp Pulse Resp Resp Resp BP Pulse Ox 10/23/16 14:42 85 140/85 100 10/23/16 13:00 111 H 15 136/81 98 10/23/16 12:52 84 16 122/83 98 10/23/16 12:46 84 16 143/77 98 10/23/16 12:36 83 16 143/77 98 10/23/16 12:16 82 16 122/83 98 10/23/16 12:11 80 143/77 10/23/16 12:00 97.5 F L 18 99 10/23/16 11:16 79 15 143/77 99 10/23/16 11:00 79 14 143/77 98 10/23/16 10:46 84 17 142/87 98 10/23/16 10:30 82 16 142/87 99 10/23/16 10:16 82 16 142/87 99 10/23/16 10:00 83 17 28 H 13 142/87 99 10/23/16 09:51 82 16 127/78 99 10/23/16 09:46 82 16 127/78 99 10/23/16 09:30 83 17 127/78 98 10/23/16 09:16 83 16 127/78 99 10/23/16 09:00 98.6 F 82 17 127/78 99 10/23/16 08:46 82 14 117/74 98 10/23/16 08:30 84 17 117/74 98 10/23/16 08:24 84 17 117/74 94 10/23/16 08:16 85 20 117/74 99 10/23/16 08:15 84 117/74 99 10/23/16 08:00 85 19 117/74 98 10/23/16 07:45 149 H 19 136/85 99 10/23/16 07:30 148 H 17 116/79 99 10/23/16 07:15 125 H 20 128/79 99 10/23/16 07:00 119 H 18 119/69 100 10/23/16 06:46 131 H 18 125/80 100 10/23/16 06:30 120 H 19 140/74 99 10/23/16 06:15 83 16 132/82 99 10/23/16 06:04 18 99 10/23/16 06:00 86 15 160/96 99 10/23/16 05:45 84 14 164/84 99 10/23/16 05:30 85 12 150/87 99 10/23/16 05:15 87 12 144/83 97 10/23/16 05:00 87 19 143/86 100 10/23/16 04:45 126 H 18 152/105 100 10/23/16 04:30 84 15 147/87 99 10/23/16 04:15 85 19 152/87 99 10/23/16 04:00 84 16 136/79 99 10/23/16 03:50 98.9 F 10/23/16 03:46 83 123/71 99 10/23/16 03:45 86 22 142/89 99 10/23/16 03:30 82 16 123/71 99 10/23/16 03:15 83 19 122/70 99 10/23/16 03:00 87 12 145/87 99 10/23/16 02:45 87 21 142/83 99 10/23/16 02:30 87 17 147/82 99 10/23/16 02:15 87 13 144/82 99 10/23/16 02:00 86 18 132/75 98 10/23/16 01:45 89 18 151/87 98 10/23/16 01:30 87 12 148/85 99 10/23/16 01:15 84 17 133/74 99 10/23/16 01:00 87 16 131/77 99 10/23/16 00:45 87 13 141/82 99 10/23/16 00:30 84 19 130/74 99 10/23/16 00:15 85 18 13 120/72 99 10/23/16 00:00 87 12 118/79 99 10/22/16 23:57 98.0 F 10/22/16 23:45 98.4 F 83 15 114/73 99 10/22/16 23:30 83 11 L 127/78 99 10/22/16 23:28 84 18 118/77 99 10/22/16 23:21 93 H 112/80 99 10/22/16 23:15 90 17 112/80 99 10/22/16 23:00 86 11 L 118/77 100 10/22/16 22:45 90 15 129/83 100 10/22/16 22:30 91 H 17 107/77 100 10/22/16 22:15 90 18 121/78 100 10/22/16 22:00 88 18 124/81 100 10/22/16 21:45 89 15 147/97 100 10/22/16 21:30 87 17 153/98 100 10/22/16 21:15 83 18 128/87 100 10/22/16 21:00 86 20 167/95 100 10/22/16 20:45 80 20 132/82 100 10/22/16 20:30 78 23 136/80 100 10/22/16 20:25 97.8 F 76 20 128/79 10/22/16 20:15 76 17 128/79 100 10/22/16 20:00 74 14 118/75 99 10/22/16 19:45 77 13 128/81 100 10/22/16 19:30 75 15 128/79 100 10/22/16 19:15 75 17 130/79 10/22/16 19:03 75 21 125/86 97 10/22/16 19:00 76 17 125/86 100 10/22/16 18:45 76 14 130/79 100 10/22/16 18:30 72 12 124/78 94 10/22/16 18:15 75 13 129/82 100 10/22/16 18:00 72 13 117/77 94 10/22/16 17:45 78 16 151/94 100 10/22/16 17:30 74 14 128/80 99 10/22/16 17:15 74 13 120/75 97 10/22/16 17:00 74 13 127/77 99 10/22/16 16:45 74 14 137/77 97 10/22/16 16:30 78 22 137/85 61 L 10/22/16 16:15 73 12 124/76 96 10/22/16 16:00 98.5 F 77 14 150/87 96 10/22/16 15:45 75 13 134/81 100 10/22/16 15:30 74 12 129/83 67 L 10/22/16 15:15 77 17 130/83 94 10/22/16 15:00 74 16 121/73 96 Pulse Ox 10/23/16 14:42 10/23/16 13:00 10/23/16 12:52 10/23/16 12:46 10/23/16 12:36 10/23/16 12:16 10/23/16 12:11 10/23/16 12:00 10/23/16 11:16 10/23/16 11:00 10/23/16 10:46 10/23/16 10:30 10/23/16 10:16 10/23/16 10:00 10/23/16 09:51 10/23/16 09:46 10/23/16 09:30 10/23/16 09:16 10/23/16 09:00 10/23/16 08:46 10/23/16 08:30 10/23/16 08:24 10/23/16 08:16 10/23/16 08:15 10/23/16 08:00 10/23/16 07:45 10/23/16 07:30 10/23/16 07:15 10/23/16 07:00 10/23/16 06:46 10/23/16 06:30 10/23/16 06:15 10/23/16 06:04 10/23/16 06:00 10/23/16 05:45 10/23/16 05:30 10/23/16 05:15 10/23/16 05:00 10/23/16 04:45 10/23/16 04:30 10/23/16 04:15 10/23/16 04:00 10/23/16 03:50 10/23/16 03:46 10/23/16 03:45 10/23/16 03:30 10/23/16 03:15 10/23/16 03:00 10/23/16 02:45 10/23/16 02:30 10/23/16 02:15 10/23/16 02:00 10/23/16 01:45 10/23/16 01:30 10/23/16 01:15 10/23/16 01:00 10/23/16 00:45 10/23/16 00:30 10/23/16 00:15 10/23/16 00:00 10/22/16 23:57 10/22/16 23:45 10/22/16 23:30 10/22/16 23:28 10/22/16 23:21 10/22/16 23:15 10/22/16 23:00 10/22/16 22:45 10/22/16 22:30 10/22/16 22:15 10/22/16 22:00 10/22/16 21:45 10/22/16 21:30 10/22/16 21:15 10/22/16 21:00 10/22/16 20:45 10/22/16 20:30 10/22/16 20:25 100 10/22/16 20:15 10/22/16 20:00 10/22/16 19:45 10/22/16 19:30 10/22/16 19:15 10/22/16 19:03 10/22/16 19:00 10/22/16 18:45 10/22/16 18:30 10/22/16 18:15 10/22/16 18:00 10/22/16 17:45 10/22/16 17:30 10/22/16 17:15 10/22/16 17:00 10/22/16 16:45 10/22/16 16:30 10/22/16 16:15 10/22/16 16:00 10/22/16 15:45 10/22/16 15:30 10/22/16 15:15 10/22/16 15:00 - Physical Examination General: Other (intubated; nonresponsive ) HEENT: Positive: Jaundice Neck: Positive: neck supple, trachea midline. Negative: JVD/HJR Cardiac: Positive: Reg Rate and Rhythm Lungs: Positive: Normal Breath Sounds Neuro: Positive: Other (intubated; nonresponsive ) Abdomen: Positive: Soft, Active Bowel Sounds Skin: Positive: Clear. Negative: Rash, Wound Musculoskeletal: No Fluid Collection, No Pain, Normal Range of Motion Extremities: Present: upper extr. pulses, lower extr. pulses. Absent: edema - Labs and Meds CBC 10/23/16 Range/Units 07:00 WBC 24.2 H (4.5-11.0) K/mm3 RBC 2.27 L (3.65-5.03) M/mm3 Hgb 7.0 L (11.8-15.2) gm/dl Hct 21.1 L (35.5-45.6) % Plt Count 35 L D (140-440) K/mm3 Comprehensive Metabolic Panel 10/23/16 Range/Units 07:12 Sodium 141 (137-145) mmol/L Potassium 3.5 L (3.6-5.0) mmol/L Chloride 95.7 L (98-107) mmol/L Carbon Dioxide 28 (22-30) mmol/L BUN 55 H (9-20) mg/dL Creatinine 2.7 H (0.8-1.5) mg/dL Glucose 103 H (75-100) mg/dL Calcium 7.1 L D (8.4-10.2) mg/dL - Imaging and Cardiology EKG: report reviewed, image reviewed Echo: report reviewed - Allied health notes Allied health notes reviewed: RT
--- NOTE | 2016-10-23 15:27 | Progress Note ---
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, amyloidosis, ordered to receive plasmapheresis at 1700 today, platelet count 35 today, follow up Hematology recs (2) Acute renal failure Current Visit: Yes Status: Acute Qualifiers: Acute renal failure type: A Plan to address problem: Status post Hemodialysis yesterday for ultrafiltration and clearance with 4K Bath and higher calcium bath No acute indication for HD today Assess need for HD on daily basis Renally dose medications Hgb level was 7.0 today Obtain daily weight Strict intake and output Renal plan discussed with Dr Marin Continue supportive therapy (3) Acute respiratory failure Current Visit: Yes Status: Acute Qualifiers: Respiratory failure complication: hypoxia Qualified Code(s): J96.01 - Acute respiratory failure with hypoxia Plan to address problem: Pulmonology on board, vent management, follow up recs (4) Hypocalcemia Current Visit: Yes Status: Acute Plan to address problem: Status post calcium gluconate 2 g IVPB x 1 dose today HD prescription was adjusted to higher 3.5 calcium bath during HD treatment yesterday (5) Hypokalemia Current Visit: Yes Status: Acute Plan to address problem: Status post Hemodialysis yesterday with 4K Bath for hypokalemia management Monitor labs daily (6) Anemia Current Visit: Yes Status: Acute Qualifiers: Anemia type: unspecified type Iron deficiency anemia type: I Vitamin B12 deficiency anemia type: V Folate deficiency anemia type: F Bone marrow failure anemia type: B Hemolytic anemia type: H Other causes of anemia: O Qualified Code(s): D64.9 - Anemia, unspecified Plan to address problem: Monitor Hgb level closely, hematology on board, follow up recs (7) Atrial fibrillation Current Visit: Yes Status: Acute Qualifiers: Atrial fibrillation type: A Plan to address problem: As per Cardiology, discontinued amiodarone, follow up recs Subjective Principal diagnosis: Sepsis Syndrome; MAHA; RAJESH; CHF Interval history: Patient intubated on ventilator, doesn't follow commands. Patient ordered to have plasmapheresis today around 1700. No family at bedside Objective - Vital Signs Vital signs: Vital Signs - 12hr 10/23/16 10/23/16 10/23/16 03:30 03:45 03:46 Temperature Pulse Rate 82 86 83 Respiratory 16 22 Rate Respiratory Rate [BILATERAL KNEES] Respiratory Rate [Bilateral Shoulder] Blood Pressure 123/71 142/89 123/71 O2 Sat by Pulse 99 99 99 Oximetry 10/23/16 10/23/16 10/23/16 03:50 04:00 04:15 Temperature 98.9 F Pulse Rate 84 85 Respiratory 16 19 Rate Respiratory Rate [BILATERAL KNEES] Respiratory Rate [Bilateral Shoulder] Blood Pressure 136/79 152/87 O2 Sat by Pulse 99 99 Oximetry 10/23/16 10/23/16 10/23/16 04:30 04:45 05:00 Temperature Pulse Rate 84 126 H 87 Respiratory 15 18 19 Rate Respiratory Rate [BILATERAL KNEES] Respiratory Rate [Bilateral Shoulder] Blood Pressure 147/87 152/105 143/86 O2 Sat by Pulse 99 100 100 Oximetry 10/23/16 10/23/16 10/23/16 05:15 05:30 05:45 Temperature Pulse Rate 87 85 84 Respiratory 12 12 14 Rate Respiratory Rate [BILATERAL KNEES] Respiratory Rate [Bilateral Shoulder] Blood Pressure 144/83 150/87 164/84 O2 Sat by Pulse 97 99 99 Oximetry 10/23/16 10/23/16 10/23/16 06:00 06:04 06:15 Temperature Pulse Rate 86 83 Respiratory 15 18 16 Rate Respiratory Rate [BILATERAL KNEES] Respiratory Rate [Bilateral Shoulder] Blood Pressure 160/96 132/82 O2 Sat by Pulse 99 99 99 Oximetry 10/23/16 10/23/16 10/23/16 06:30 06:46 07:00 Temperature Pulse Rate 120 H 131 H 119 H Respiratory 19 18 18 Rate Respiratory Rate [BILATERAL KNEES] Respiratory Rate [Bilateral Shoulder] Blood Pressure 140/74 125/80 119/69 O2 Sat by Pulse 99 100 100 Oximetry 10/23/16 10/23/16 10/23/16 07:15 07:30 07:45 Temperature Pulse Rate 125 H 148 H 149 H Respiratory 20 17 19 Rate Respiratory Rate [BILATERAL KNEES] Respiratory Rate [Bilateral Shoulder] Blood Pressure 128/79 116/79 136/85 O2 Sat by Pulse 99 99 99 Oximetry 10/23/16 10/23/16 10/23/16 08:00 08:15 08:16 Temperature Pulse Rate 85 84 85 Respiratory 19 20 Rate Respiratory Rate [BILATERAL KNEES] Respiratory Rate [Bilateral Shoulder] Blood Pressure 117/74 117/74 117/74 O2 Sat by Pulse 98 99 99 Oximetry 10/23/16 10/23/16 10/23/16 08:24 08:30 08:46 Temperature Pulse Rate 84 84 82 Respiratory 17 17 14 Rate Respiratory Rate [BILATERAL KNEES] Respiratory Rate [Bilateral Shoulder] Blood Pressure 117/74 117/74 117/74 O2 Sat by Pulse 94 98 98 Oximetry 10/23/16 10/23/16 10/23/16 09:00 09:16 09:30 Temperature 98.6 F Pulse Rate 82 83 83 Respiratory 17 16 17 Rate Respiratory Rate [BILATERAL KNEES] Respiratory Rate [Bilateral Shoulder] Blood Pressure 127/78 127/78 127/78 O2 Sat by Pulse 99 99 98 Oximetry 10/23/16 10/23/16 10/23/16 09:46 09:51 10:00 Temperature Pulse Rate 82 82 83 Respiratory 16 16 17 Rate Respiratory 28 H Rate [BILATERAL KNEES] Respiratory 13 Rate [Bilateral Shoulder] Blood Pressure 127/78 127/78 142/87 O2 Sat by Pulse 99 99 99 Oximetry 10/23/16 10/23/16 10/23/16 10:16 10:30 10:46 Temperature Pulse Rate 82 82 84 Respiratory 16 16 17 Rate Respiratory Rate [BILATERAL KNEES] Respiratory Rate [Bilateral Shoulder] Blood Pressure 142/87 142/87 142/87 O2 Sat by Pulse 99 99 98 Oximetry 10/23/16 10/23/16 10/23/16 11:00 11:16 12:00 Temperature 97.5 F L Pulse Rate 79 79 Respiratory 14 15 18 Rate Respiratory Rate [BILATERAL KNEES] Respiratory Rate [Bilateral Shoulder] Blood Pressure 143/77 143/77 O2 Sat by Pulse 98 99 99 Oximetry 10/23/16 10/23/16 10/23/16 12:11 12:16 12:36 Temperature Pulse Rate 80 82 83 Respiratory 16 16 Rate Respiratory Rate [BILATERAL KNEES] Respiratory Rate [Bilateral Shoulder] Blood Pressure 143/77 122/83 143/77 O2 Sat by Pulse 98 98 Oximetry 10/23/16 10/23/16 10/23/16 12:46 12:52 13:00 Temperature Pulse Rate 84 84 111 H Respiratory 16 16 15 Rate Respiratory Rate [BILATERAL KNEES] Respiratory Rate [Bilateral Shoulder] Blood Pressure 143/77 122/83 136/81 O2 Sat by Pulse 98 98 98 Oximetry 10/23/16 10/23/16 10/23/16 13:16 13:30 13:46 Temperature Pulse Rate 85 85 84 Respiratory 15 18 18 Rate Respiratory Rate [BILATERAL KNEES] Respiratory Rate [Bilateral Shoulder] Blood Pressure 136/81 136/81 136/81 O2 Sat by Pulse 98 98 98 Oximetry 10/23/16 10/23/16 10/23/16 14:00 14:16 14:30 Temperature Pulse Rate 84 84 85 Respiratory 16 17 19 Rate Respiratory Rate [BILATERAL KNEES] Respiratory Rate [Bilateral Shoulder] Blood Pressure 140/85 140/85 140/85 O2 Sat by Pulse 99 99 99 Oximetry 10/23/16 14:42 Temperature Pulse Rate 85 Respiratory Rate Respiratory Rate [BILATERAL KNEES] Respiratory Rate [Bilateral Shoulder] Blood Pressure 140/85 O2 Sat by Pulse 100 Oximetry - General Appearance General appearance: intubated (on ventilator, doesn't follow commands) EENT: ATNC Neck: no JVD Respiratory: Present: Other (Lung sounds decreased bilaterally, intubated on ventilator) Cardiology: regular, S1S2, other (ACCESS: Right Vas Catheter intact) Gastrointestinal: normoactive bowel sounds (Dobhoff tube intact) Integumentary: ulcer (right hand skin wound noted; left arm skin wound with dressing in place, bilateral lower extremity wounds with dressings in place) Neurologic: other (intubated on ventilator) Musculoskeletal: other (1+ edema to both lower extremities) - Lab 10/23/16 07:00 10/23/16 07:12 Most recent lab results Calcium 7.1 mg/dL (8.4-10.2) L D 10/23/16 07:12 Phosphorus 6.30 mg/dL (2.5-4.5) H 10/19/16 06:00
[2016-10-23] MEDS ORDERED: CALCIUM GLUCONATE 2,000 MG in NACL 0.9% 100 ML IV ONE (15:45)
[2016-10-23] MEDS: TYLENOL FEEDTUBE PRN ×2 (16:22→20:30)
[2016-10-23] MEDS: BENADRYL IV PRN (16:24)
[2016-10-23] MEDS: NORMODYNE IV PRN (17:19)
[2016-10-24] MEDS: NOVOLOG SUB-Q SCH ×5 (00:23→18:20)
[2016-10-24] MEDS: CLEOCIN 900 MG/50 mL 900 MG/50 ML BAG IV SCH (04:26)
[2016-10-24 07:38] LABS: Hemoglobin 6.5 gm/dl (11.8-15.2); Mean Corpuscular HGB Conc 33 % (32-34); Mean Corpuscular Hemoglobin 31 pg (28-32); Mean Corpuscular Volume 94 fl (84-94); Red Blood Count 2.12 M/mm3 (3.65-5.03); Red Cell Distribution Width 19.3 % (13.2-15.2); White Blood Count 17.9 K/mm3 (4.5-11.0)
[2016-10-24 07:45] LABS: Albumin 2.3 g/dL (3.9-5); Albumin/Globulin Ratio 0.9 %; BUN/Creatinine Ratio 22.42; Bilirubin,Total 2.1 mg/dL (0.1-1.2); Calcium 6.6 mg/dL (8.4-10.2); Chloride 92.9 mmol/L (98-107); Potassium 3.7 mmol/L (3.6-5.0); Total Protein 4.8 g/dL (6.3-8.2)
[2016-10-24 07:46] LABS: Platelet Count 44 K/mm3 (140-440)
[2016-10-24 07:51] LABS: Hematocrit 19.9 % (35.5-45.6)
[2016-10-24] MEDS ORDERED: NACL 0.9% 500 ML 500 ML IV ONE ×5 (09:12→18:21)
[2016-10-24] MEDS ORDERED: CALCIUM GLUCONATE 2,000 MG in NACL 0.9% 100 ML IV ONE (09:17)
[2016-10-24] MEDS: PEPCID PO SCH (09:37)
[2016-10-24] MEDS: TYLENOL FEEDTUBE PRN (10:56)
[2016-10-24] MEDS: BENADRYL IV PRN (10:57)
--- NOTE | 2016-10-24 11:22 | Progress Note ---
Assessment and Plan - Patient Problems (1) Sepsis Current Visit: Yes Status: Acute Qualifiers: Sepsis type: Streptococcus group B Qualified Code(s): A40.1 - Sepsis due to streptococcus, group B Plan to address problem: 1. Continue Vancomycin with dose adjusted per recent Vanco level of 9.2 ( subtherapeutic). 2. Will discontinue Clindamycin given new diarrhea and mild abdominal distention. Follow output of stool. 3. JONATHAN when feasible. Subjective Date of service: 10/24/16 Principal diagnosis: Sepsis Syndrome; MAHA; RAJESH; CHF Interval history: Remains critically ill in ICU. Unable presently to complete JONATHAN due to severe thrombocytopenia. Objective - Exam Narrative Exam: intubated FiO2 25% - Constitutional Vitals: Vital Signs Temp Pulse Resp BP Pulse Ox 99.6 F 90 11 L 121/76 97 10/24/16 07:45 10/24/16 10:00 10/24/16 10:56 10/24/16 10:00 10/24/16 10:00 Temperature -Last 24 Hours Temperature 99.6 F Temperature 100.5 F Temperature 99.8 F Temperature 100 F Temperature 99.4 F Temperature 97.5 F General appearance: Present: other (ill-appearing, intubated) - EENT Eyes: no scleral icterus ENT: other (ET and Dobhoff tubes in place) - Respiratory Respiratory: bilateral: CTA, negative: rales, rhonchi - Cardiovascular Rhythm: regular Heart Sounds: Present: S1 & S2 Extremities: No edema - Gastrointestinal General gastrointestinal: Present: soft (slightly firm), distended (mild distention) Rectal Exam: stool brown, other (rectal tube with liquid, brown stool) - Integumentary Integumentary: rash (petechial/ purpuric skin changes on lower extremities) - Labs CBC & Chem 7: 10/24/16 07:00 10/24/16 07:00 Labs: Abnormal lab results 10/23/16 10/24/16 10/24/16 Range/Units 07:00 00:12 05:16 WBC (4.5-11.0) K/mm3 RBC (3.65-5.03) M/mm3 Hgb (11.8-15.2) gm/dl Hct (35.5-45.6) % RDW (13.2-15.2) % Plt Count 35 L D (140-440) K/mm3 Chloride (98-107) mmol/L BUN (9-20) mg/dL Creatinine (0.8-1.5) mg/dL Glucose (75-100) mg/dL POC Glucose 116 H 135 H (70-105) Calcium (8.4-10.2) mg/dL Total Bilirubin (0.1-1.2) mg/dL AST (5-40) units/L Alkaline Phosphatase (35-129) units/L Total Protein (6.3-8.2) g/dL Albumin (3.9-5) g/dL 10/24/16 10/24/16 Range/Units 07:00 07:00 WBC 17.9 H (4.5-11.0) K/mm3 RBC 2.12 L (3.65-5.03) M/mm3 Hgb 6.5 L (11.8-15.2) gm/dl Hct 19.9 L* (35.5-45.6) % RDW 19.3 H (13.2-15.2) % Plt Count 44 L (140-440) K/mm3 Chloride 92.9 L (98-107) mmol/L BUN 74 H (9-20) mg/dL Creatinine 3.3 H (0.8-1.5) mg/dL Glucose 136 H (75-100) mg/dL POC Glucose (70-105) Calcium 6.6 L (8.4-10.2) mg/dL Total Bilirubin 2.10 H (0.1-1.2) mg/dL AST 68 H (5-40) units/L Alkaline Phosphatase 224 H (35-129) units/L Total Protein 4.8 L (6.3-8.2) g/dL Albumin 2.3 L (3.9-5) g/dL Microbiology 10/16/16 21:15 Peripheral/Venous Blood Culture - Final NO GROWTH AFTER 5 DAYS 10/16/16 20:30 Peripheral/Venous Blood Culture - Final NO GROWTH AFTER 5 DAYS 10/16/16 21:00 Tracheal Aspirate Sputum Culture - Final Sara Albicans 10/14/16 16:15 Peripheral/Venous Blood Culture - Preliminary Beta Hemolytic Strep Group B 10/14/16 15:33 Peripheral/Venous Blood Culture - Preliminary Beta Hemolytic Strep Group B Active Medications Acetaminophen (Tylenol) 1,000 mg AL Q4H PRN PRN Reason: Pain, Mild (1-3) Last Admin: 10/20/16 15:40 Dose: 1,000 mg Acetaminophen (Tylenol) 650 mg FEEDTUBE Q6H PRN PRN Reason: Pain, Mild (1-3) Last Admin: 10/24/16 10:56 Dose: 650 mg Lipase/Protease/Amylase (Pancreaze Dr 10,500 Unit) 1 each FEEDTUBE PRN PRN PRN Reason: For Clogged Feeding Tube Dextrose (D50w (25gm)) 25 ml IV PRN PRN PRN Reason: Hypoglycemia Last Admin: 10/18/16 07:20 Dose: 25 ml Diphenhydramine HCl (Benadryl) 50 mg IV Q6H PRN PRN Reason: Itching Last Admin: 10/24/16 10:57 Dose: 50 mg Famotidine (Pepcid) 20 mg PO Q24H EDWINA Last Admin: 10/24/16 09:37 Dose: 20 mg Haloperidol Lactate (Haldol) 5 mg IM Q6H PRN PRN Reason: Agitation Last Admin: 10/14/16 21:11 Dose: 5 mg Heparin Sodium (Porcine) (Heparin) 10,000 unit IV ROD PRN PRN Reason: for plasmapheresis- vascath Last Admin: 10/20/16 13:05 Dose: 10,000 unit Hydrocortisone Sodium Succinate (Solu-Cortef) 60 mg IV Q6HR EDWINA Last Admin: 10/24/16 06:34 Dose: Not Given Hydrophilic Ointment (Vaseline Lip Therapy) 1 applic TP Q2H PRN PRN Reason: Dry Lips Sodium Chloride (Nacl 0.9%) 100 mls @ 999 mls/hr IV ROD PRN PRN Reason: Hypotension Clindamycin HCl (Cleocin 900 Mg/50 Ml) 900 mg in 50 mls @ 100 mls/hr IV Q8H EDWINA PRN Reason: Protocol Last Admin: 10/24/16 04:26 Dose: 100 mls/hr Norepinephrine (Levophed Drip 4 Mg/Ns 250 Ml) 4 mg in 250 mls @ 7.5 mls/hr IV TITR EDWINA; 2 MCG/MIN PRN Reason: Protocol Last Admin: 10/19/16 18:56 Dose: 4 mcg/min, 15 mls/hr Propofol (Diprivan 10 Mg/Ml) 1,000 mg in 100 mls @ 1.827 mls/hr IV TITR EDWINA; 5 MCG/KG/MIN PRN Reason: Protocol Last Titration: 10/20/16 10:12 Dose: 0 mcg/kg/min, 0 mls/hr Fentanyl Citrate (Fentanyl Drip Premix) 2,000 mcg in 100 mls @ 3.045 mls/hr IV TITR EDWINA; 1 MCG/KG/HR PRN Reason: Protocol Sodium Chloride (Nacl 0.9%) 100 mls @ 999 mls/hr IV ROD PRN PRN Reason: Hypotension Insulin Aspart (Novolog) 0 units SUB-Q Q6HR EDWINA PRN Reason: Protocol Last Admin: 10/24/16 06:23 Dose: Not Given Labetalol HCl (Normodyne) 20 mg IV Q6H PRN PRN Reason: Hypertension Last Admin: 10/23/16 17:19 Dose: 20 mg Multi-Ingred Cream/Lotion/Oil/Oint (Artificial Tears Ophth Oint) 1 applic OU Q4H PRN PRN Reason: Dry Eye(s) Ondansetron HCl (Zofran) 4 mg IV Q8H PRN PRN Reason: Nausea And Vomiting Simple Syrup (Simple Syrup) 15 ml FEEDTUBE PRN PRN PRN Reason: Hypoglycemia Simple Syrup (Simple Syrup) 30 ml FEEDTUBE PRN PRN PRN Reason: Hypoglycemia Sodium Bicarbonate (Sodium Bicarbonate) 325 mg FEEDTUBE PRN PRN PRN Reason: For Clogged Feeding Tube Sodium Chloride (Sodium Chloride Flush Syringe 10 Ml) 10 ml IV PRN PRN PRN Reason: LINE FLUSH Last Admin: 10/17/16 20:45 Dose: 10 ml Vancomycin HCl (Vancomycin Pharmacy To Dose) 1 each IV PKCONSULT EDWINA PRN Reason: Protocol - Imaging and cardiology Chest x-ray: report reviewed
--- NOTE | 2016-10-24 11:27 | Progress Note ---
Assessment and Plan Assessment and plan: Patient is a 61-year-old man with no significant past medical history who presented to the emergency department [facility] 10/13/16, complaining of bilateral leg swelling that worsened for the last 4 days. He was found to have severe metabolic acidosis, creatinine was 14.5 with hyperkalemia, emergent Hemodialysis was set up. He was found to have severe pancytopenia and thrombocytopenia. Dr. 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 He was on bipap and was intubated 10/16/16, details are not readily available on why he needed to be intubated, no nursing note for . -Acute encephalopathy, not sedated, will consult Neurology. 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 Follow up on respiratory failure, patient still intubated. Overnight uneventful. No cp, sob, n/v or severe headaches. Imaging, old records, testing, labs, nursing notes reviewed. Hospitalist Physical - Physical exam Narrative exam: GEN: Critically ill intubated but not sedated HEENT: Eyes are floating, ET tube in place CVS: irregular, NORMAL S1S2 LUNGS/CHEST: NORMAL CHEST EXPANSION B, GOOD AIR ENTRY B ABD: SOFT, POSITIVE BOWEL SOUNDS, NONDISTENDED, NO REBOUND OR GUARDING NEURO: CN 2-12 GROSSLY INTACT, he doesn't follow commands PSY: Unresponsive - Constitutional Vitals: Temp Pulse Resp BP Pulse Ox 99.6 F 90 11 L 121/76 97 10/24/16 07:45 10/24/16 10:00 10/24/16 10:56 10/24/16 10:00 10/24/16 10:00 General appearance: Absent: well-nourished Results - Labs CBC & Chem 7: 10/24/16 07:00 10/24/16 07:00 Labs: Laboratory Last Values WBC 17.9 K/mm3 (4.5-11.0) H 10/24/16 07:00 RBC 2.12 M/mm3 (3.65-5.03) L 10/24/16 07:00 Hgb 6.5 gm/dl (11.8-15.2) L 10/24/16 07:00 Hct 19.9 % (35.5-45.6) L* 10/24/16 07:00 MCV 94 fl (84-94) 10/24/16 07:00 MCH 31 pg (28-32) 10/24/16 07:00 MCHC 33 % (32-34) 10/24/16 07:00 RDW 19.3 % (13.2-15.2) H 10/24/16 07:00 Plt Count 44 K/mm3 (140-440) L 10/24/16 07:00 Lymph % (Auto) [place] [employer] Operator 10/14/16 04:34 Banner % (Auto) [place] Pa[employer] Operator 10/14/16 04:34 Eos % (Auto) [place] [employer] Operator 10/14/16 04:34 Baso % (Auto) [place] [employer] Operator 10/14/16 04:34 Lymph # [place] [employer] Operator 10/14/16 04:34 Banner # [place] [employer] Operator 10/14/16 04:34 Eos # [place] [employer] Operator 10/14/16 04:34 Baso # [place] [employer] Operator 10/14/16 04:34 Add Manual Diff Complete 10/21/16 10:30 Total Counted 100 10/21/16 10:30 Seg Neutrophils % [place] [employer] Operator 10/21/16 10:30 Seg Neuts % (Manual) 92.0 % (40.0-70.0) H 10/21/16 10:30 Band Neutrophils % 5.0 % 10/21/16 10:30 Lymphocytes % (Manual) 0 % (13.4-35.0) L 10/21/16 10:30 Reactive Lymphs % (Man) 0 % 10/21/16 10:30 Monocytes % (Manual) 0 % (0.0-7.3) 10/21/16 10:30 Eosinophils % (Manual) 0 % (0.0-4.3) 10/21/16 10:30 Basophils % (Manual) 0 % (0.0-1.8) 10/21/16 10:30 Metamyelocytes % 2.0 % 10/21/16 10:30 Myelocytes % 0 % 10/21/16 10:30 Promyelocytes % 1.0 % 10/21/16 10:30 Blast Cells % 0 % 10/21/16 10:30 Nucleated RBC % 5.0 % (0.0-0.9) H 10/21/16 10:30 Seg Neutrophils # [place] Pa[place] Operator 10/14/16 04:34 Seg Neutrophils # Man 25.9 K/mm3 (1.8-7.7) H 10/21/16 10:30 Band Neutrophils # 1.4 K/mm3 10/21/16 10:30 Lymphocytes # (Manual) 0.0 K/mm3 (1.2-5.4) L 10/21/16 10:30 Abs React Lymphs (Man) 0.0 K/mm3 10/21/16 10:30 Monocytes # (Manual) 0.0 K/mm3 (0.0-0.8) 10/21/16 10:30 Eosinophils # (Manual) 0.0 K/mm3 (0.0-0.4) 10/21/16 10:30 Basophils # (Manual) 0.0 K/mm3 (0.0-0.1) 10/21/16 10:30 Metamyelocytes # 0.6 K/mm3 10/21/16 10:30 Myelocytes # 0.0 K/mm3 10/21/16 10:30 Promyelocytes # 0.3 K/mm3 10/21/16 10:30 Blast Cells # 0.0 K/mm3 10/21/16 10:30 WBC Morphology Not Reportable 10/21/16 10:30 Hypersegmented Neuts Not Reportable 10/21/16 10:30 Hyposegmented Neuts Not Reportable 10/21/16 10:30 Hypogranular Neuts Not Reportable 10/21/16 10:30 Smudge Cells Not Reportable 10/21/16 10:30 Toxic Granulation Not Reportable 10/21/16 10:30 Toxic Vacuolation Not Reportable 10/21/16 10:30 Dohle Bodies Not Reportable 10/21/16 10:30 Pelger-Huet Anomaly Not Reportable 10/21/16 10:30 Madhu Rods Not Reportable 10/21/16 10:30 Platelet Estimate Appears decreased 10/21/16 10:30 Clumped Platelets Not Reportable 10/21/16 10:30 Plt Clumps, EDTA Not Reportable 10/21/16 10:30 Large Platelets Not Reportable 10/21/16 10:30 Giant Platelets Rare 10/21/16 10:30 Platelet Satelliting Not Reportable 10/21/16 10:30 Plt Morphology Comment Not Reportable 10/21/16 10:30 RBC Morphology Not Reportable 10/21/16 10:30 Dimorphic RBCs Not Reportable 10/21/16 10:30 Polychromasia 1+ 10/21/16 10:30 Hypochromasia 1+ 10/21/16 10:30 Poikilocytosis Not Reportable 10/21/16 10:30 Basophilic Stippling Rare 10/21/16 10:30 Anisocytosis 2+ 10/21/16 10:30 Microcytosis Not Reportable 10/21/16 10:30 Macrocytosis Not Reportable 10/21/16 10:30 Spherocytes Not Reportable 10/21/16 10:30 Pappenheimer Bodies Not Reportable 10/21/16 10:30 Sickle Cells Not Reportable 10/21/16 10:30 Target Cells Not Reportable 10/21/16 10:30 Tear Drop Cells Not Reportable 10/21/16 10:30 Ovalocytes 1+ 10/21/16 10:30 Stomatocytes Few 10/21/16 10:30 Helmet Cells Rare 10/21/16 10:30 [place] Bodies Not Reportable 10/21/16 10:30 [place] Rings Not Reportable 10/21/16 10:30 Sabrina Cells Not Reportable 10/21/16 10:30 Bite Cells Not Reportable 10/21/16 10:30 Crenated Cell Not Reportable 10/21/16 10:30 Elliptocytes Few 10/21/16 10:30 Acanthocytes (Spur) Not Reportable 10/21/16 10:30 Rouleaux Not Reportable 10/21/16 10:30 Hemoglobin C Crystals Not Reportable 10/21/16 10:30 Schistocytes Not Reportable 10/21/16 10:30 Malaria parasites Not Reportable 10/21/16 10:30 ESR 77 mm/Hr (0-20) 10/14/16 04:34 Pal Bodies Not Reportable 10/21/16 10:30 Haptoglobin <15 mg/dL (43-212) L 10/15/16 12:00 Hem Pathologist Commnt No 10/21/16 10:30 PT 49.1 Sec. (12.2-14.9) H 10/21/16 11:25 INR 5.28 (0.87-1.13) H* 10/21/16 11:25 Fibrinogen 557 mg/dl (211-480) H 10/14/16 09:58 Lupus Anticoagulant see below H 10/14/16 03:00 LA PTT Baseline 55 sec (<=40) H 10/14/16 03:00 dRVVT Confirm Interp Negative (Negative) 10/14/16 03:00 POC ABG pH 7.476 (7.35-7.45) H 10/23/16 04:47 POC ABG pCO2 37.4 (35-45) 10/23/16 04:47 POC ABG pO2 108 (80-105) H 10/23/16 04:47 POC ABG HCO3 27.6 10/23/16 04:47 POC ABG Total CO2 29 10/23/16 04:47 POC ABG O2 Sat 99 10/23/16 04:47 POC ABG Base Excess 4 10/23/16 04:47 FiO2 25 % 10/23/16 04:47 Sodium 139 mmol/L (137-145) 10/24/16 07:00 Potassium 3.7 mmol/L (3.6-5.0) 10/24/16 07:00 Chloride 92.9 mmol/L (98-107) L 10/24/16 07:00 Carbon Dioxide 26 mmol/L (22-30) 10/24/16 07:00 Anion Gap 24 mmol/L 10/24/16 07:00 BUN 74 mg/dL (9-20) H 10/24/16 07:00 Creatinine 3.3 mg/dL (0.8-1.5) H 10/24/16 07:00 Estimated GFR 19 ml/min 10/24/16 07:00 BUN/Creatinine Ratio 22.42 % 10/24/16 07:00 Glucose 136 mg/dL (75-100) H 10/24/16 07:00 POC Glucose 135 (70-105) H 10/24/16 05:16 Lactic Acid 14.30 mmol/L (0.7-2.0) H* 10/18/16 09:15 Uric Acid 8.0 mg/dL (3.5-7.6) H 10/14/16 03:00 Calcium 6.6 mg/dL (8.4-10.2) L 10/24/16 07:00 Phosphorus 6.30 mg/dL (2.5-4.5) H 10/19/16 06:00 Iron 146 ug/dL (49-181) 10/15/16 05:35 TIBC 166 mcg/dL (250-450) L 10/15/16 05:35 Erythropoietin 148.2 mIU/mL (2.6-18.5) H 10/19/16 14:15 Ferritin 9562.0 ng/mL (13.0-400.0) H 10/15/16 05:35 Total Bilirubin 2.10 mg/dL (0.1-1.2) H 10/24/16 07:00 Direct Bilirubin 1.1 mg/dL (0-0.2) H 10/14/16 09:58 Indirect Bilirubin 0.2 mg/dL 10/14/16 09:58 AST 68 units/L (5-40) H 10/24/16 07:00 ALT 46 units/L (7-56) 10/24/16 07:00 Alkaline Phosphatase 224 units/L (35-129) H 10/24/16 07:00 Ammonia 32.0 umol/L (25-60) 10/19/16 14:15 Lactate Dehydrogenase 3871 units/L (91-180) H 10/15/16 05:35 Troponin T 0.079 ng/mL (0.00-0.029) H 10/13/16 10:14 C-Reactive Protein 40.40 mg/dL (0.00-1.30) H 10/14/16 12:52 NT-Pro-B Natriuret Pep > 67944 pg/mL (0-900) H 10/13/16 10:14 Serum Total Protein 5.6 g/dL (6.1-8.1) L 10/13/16 14:50 Total Protein 4.8 g/dL (6.3-8.2) L 10/24/16 07:00 Albumin 2.3 g/dL (3.9-5) L 10/24/16 07:00 Albumin/Globulin Ratio 0.9 % 10/24/16 07:00 Yktxo-3-Acydnvtrr 0.5 g/dL (0.2-0.3) H 10/13/16 14:50 Cparr-0-Wxpfnrsyh 0.6 g/dL (0.5-0.9) 10/13/16 14:50 Beta Globulins 0.3 g/dL (0.2-0.5) 10/13/16 14:50 Gamma Globulins 1.7 g/dL (0.8-1.7) 10/13/16 14:50 Abnorm Protein Band 1 1.4 g/dL H 10/13/16 14:50 PEP Interpretation see below H 10/13/16 14:50 Triglycerides 119 mg/dL (2-149) 10/13/16 10:14 Cholesterol 71 mg/dL (50-199) 10/13/16 10:14 LDL Cholesterol Direct 41 mg/dL (50-130) L 10/13/16 10:14 HDL Cholesterol 7 mg/dL (40-59) L 10/13/16 10:14 Cholesterol/HDL Ratio 10.14 % 10/13/16 10:14 Lipase 21 units/L (13-60) 10/15/16 05:35 Vitamin B12 893.9 pg/mL (211-911) 10/14/16 03:00 TSH 0.526 mlU/mL (0.270-4.200) 10/19/16 14:15 Random Vancomycin 9.6 ug/mL (0-40.0) 10/23/16 07:00 IgG 1040 mg/dL (694-1618) 10/19/16 14:15 IgA 149 mg/dL (81-463) 10/19/16 14:15 IgM 53 mg/dL (48-271) 10/19/16 14:15 XU Screen Negative (Negative) 10/13/16 14:50 Proteinase 3 (PR3) Ab <1.0 AI (<1.0) 10/13/16 14:50 Myeloperoxidase Ab <1.0 AI (<1.0) 10/13/16 14:50 Glomerular Base Mem IgG <1.0 AI (<1.0) 10/13/16 14:50 Complement C3 101 mg/dL (90-180) 10/13/16 14:50 Complement C4 16 mg/dL (16-47) 10/13/16 14:50 Hep Bs Antigen Non-reactive (Negative) 10/13/16 14:50 Hepatitis C Antibody Non-reactive (NonReactive) 10/13/16 14:50 HIV 1&2 Antibody Rapid Non react (Non React) 10/13/16 14:50 HIV P24 Antigen Non react (Non React) 10/13/16 14:50 Schistocytes Smear None seen 10/15/16 12:00 Flow Intrp 16+ Markers Scanned into [facility] rec 10/14/16 11:30 Flow Cytometry Interp Scanned into [facility] rec 10/14/16 11:30 Blood Type TNR 10/24/16 09:12 Antibody Screen TNR 10/17/16 07:59 MADIHA Antibody Screen Negative 10/17/16 07:59 Direct Antiglob Test Negative 10/14/16 03:00 ELAINE, Poly Interpret Negative 10/14/16 03:00 Crossmatch See Detail 10/17/16 07:59
--- NOTE | 2016-10-24 12:01 | Progress Note ---
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) - continue HD/UF per nephrology recs - follow I's and O's - correct electrolytes prn - avoid nephrotoxins - per nephrology otherwise (3) Metabolic acidosis Current Visit: Yes Status: Acute Plan to address problem: - mixed etiology - Lactic Acidosis component - sepsis may be driving force for that - RAJESH component - continue HD/UF per nephrology prescription - Anti-infectives per ID recs (4) CHF (congestive heart failure) Current Visit: Yes Status: Acute Qualifiers: Congestive heart failure type: C Congestive heart failure chronicity: C Plan to address problem: - ECHO consistent with possible infiltrating disease - cardiology consulted - EF 30& - s/p volume resuscitation for sepsis - per cardiology otherwise (5) Pancytopenia Current Visit: Yes Status: Acute Plan to address problem: - hematology on case - continuing plasmapheresis - may need bone marrow evaluation - platelet count tending slowly up now (6) Acute encephalopathy Current Visit: Yes Status: Acute Plan to address problem: - CT brain negative - likely toxic-metabolic encephalopathy - will need MRI - neurology consult placed - following clinically (7) Hypoglycemia Current Visit: Yes Status: Acute Plan to address problem: - improved - suspect sepsis related element - will continue systemic steroids but taper - also continue enteral nutrition - glycemic control via SSI at this point (8) Sepsis syndrome Current Visit: Yes Status: Acute Plan to address problem: - s/p antibiotic course - ID on case (9) Discharge planning issues Current Visit: Yes Status: Acute Plan to address problem: - he remains critically ill on life sustaining interventions including MVS and at risk for further deterioration including ...31' CCT Subjective Date of service: 10/24/16 Principal diagnosis: Sepsis Syndrome; MAHA; RAJESH; CHF; TTP Interval history: Seen and examined at bedside; 24 hour events reviewed; nursing and respiratory care staff consulted; no adverse overnight events reported to me; plasmapheresis ongoing; AMS is persistent; no emesis or overt aspiration and tolerating tube feeds Objective Vital Signs - 12hr 10/24/16 10/24/16 10/24/16 00:16 00:30 00:46 Temperature Pulse Rate 93 H 92 H 91 H Respiratory 27 H 24 22 Rate Blood Pressure 129/79 129/79 129/79 O2 Sat by Pulse 97 97 97 Oximetry 10/24/16 10/24/16 10/24/16 01:00 01:16 01:30 Temperature Pulse Rate 94 H 92 H 91 H Respiratory 27 H 25 H 24 Rate Blood Pressure 129/79 129/79 124/75 O2 Sat by Pulse 97 98 97 Oximetry 10/24/16 10/24/16 10/24/16 01:46 02:00 02:16 Temperature Pulse Rate 92 H 93 H 91 H Respiratory 26 H 26 H 25 H Rate Blood Pressure 124/75 124/75 124/75 O2 Sat by Pulse 98 97 98 Oximetry 10/24/16 10/24/16 10/24/16 02:30 02:46 03:00 Temperature Pulse Rate 93 H 93 H 93 H Respiratory 26 H 26 H 26 H Rate Blood Pressure 124/75 124/75 116/72 O2 Sat by Pulse 98 98 99 Oximetry 10/24/16 10/24/16 10/24/16 03:12 03:16 03:30 Temperature Pulse Rate 91 H 91 H 90 Respiratory 25 H 19 Rate Blood Pressure 116/72 116/72 116/72 O2 Sat by Pulse 98 98 98 Oximetry 10/24/16 10/24/16 10/24/16 03:46 03:56 04:00 Temperature 100.5 F H Pulse Rate 97 H 91 H Respiratory 13 23 Rate Blood Pressure 116/72 116/72 O2 Sat by Pulse 97 98 Oximetry 10/24/16 10/24/16 10/24/16 04:16 04:30 04:46 Temperature Pulse Rate 91 H 92 H 94 H Respiratory 23 24 26 H Rate Blood Pressure 116/72 122/73 122/73 O2 Sat by Pulse 98 98 98 Oximetry 10/24/16 10/24/16 10/24/16 05:00 05:16 05:30 Temperature Pulse Rate 88 93 H 91 H Respiratory 14 24 17 Rate Blood Pressure 122/73 122/73 122/73 O2 Sat by Pulse 98 97 98 Oximetry 10/24/16 10/24/1610/24/17 05:46 06:00 06:16 Temperature Pulse Rate 91 H 95 H 89 Respiratory 16 11 L 0 L Rate Blood Pressure 122/73 122/80 122/80 O2 Sat by Pulse 98 99 98 Oximetry 10/24/16 10/24/16 10/24/16 06:30 06:46 07:00 Temperature Pulse Rate 92 H 93 H 92 H Respiratory 19 24 20 Rate Blood Pressure 122/80 122/80 122/80 O2 Sat by Pulse 97 98 98 Oximetry 10/24/16 10/24/16 10/24/16 07:16 07:30 07:41 Temperature Pulse Rate 92 H 91 H 90 Respiratory 16 17 Rate Blood Pressure 122/80 117/73 117/73 O2 Sat by Pulse 98 98 100 Oximetry 10/24/16 10/24/16 10/24/16 07:44 07:45 07:46 Temperature 99.6 F Pulse Rate 91 H 88 Respiratory 24 0 L Rate Blood Pressure 117/73 117/73 O2 Sat by Pulse 98 97 Oximetry 10/24/16 10/24/16 10/24/16 08:00 08:16 08:30 Temperature Pulse Rate 90 89 90 Respiratory 25 H 21 24 Rate Blood Pressure 117/73 117/73 117/73 O2 Sat by Pulse 97 97 98 Oximetry 10/24/16 10/24/16 10/24/16 08:46 09:00 09:16 Temperature Pulse Rate 89 90 87 Respiratory 21 23 20 Rate Blood Pressure 117/73 121/76 121/76 O2 Sat by Pulse 97 98 97 Oximetry 10/24/16 10/24/16 10/24/16 09:30 09:46 10:00 Temperature Pulse Rate 91 H 92 H 90 Respiratory 22 23 24 Rate Blood Pressure 121/76 121/76 121/76 O2 Sat by Pulse 97 99 97 Oximetry 10/24/16 10/24/16 10/24/16 10:16 10:30 10:46 Temperature Pulse Rate 88 92 H 88 Respiratory 22 26 H 12 Rate Blood Pressure 121/76 129/77 129/77 O2 Sat by Pulse 98 97 96 Oximetry 10/24/16 10/24/16 10/24/16 10:56 11:00 11:16 Temperature Pulse Rate 91 H 90 Respiratory 11 L 22 13 Rate Blood Pressure 129/77 129/77 O2 Sat by Pulse 96 96 Oximetry 10/24/16 11:26 Temperature Pulse Rate 91 H Respiratory 24 Rate Blood Pressure 129/77 O2 Sat by Pulse 98 Oximetry Constitutional: no acute distress, lethargic Eyes: non-icteric ENT: oropharynx dry Neck: supple, no lymphadenopathy Effort: normal Ascultation: Bilateral: clear, diminished breath sounds Cardiovascular: irregular rhythm Gastrointestinal: normoactive bowel sounds, soft, non-distended Integumentary: erythema (ecchymosis/purpura) Extremities: no cyanosis, pulses normal, no ischemia or petechiae, edema Neurologic: non-focal exam (grossly), pupils equal and round, unable to assess Psychiatric: other (unable to assess) CBC and BMP: 10/24/16 07:00 10/24/16 07:00 ABG, PT/INR, D-dimer: ABG POC ABG pH 7.476 (7.35-7.45) H 10/23/16 04:47 POC ABG pCO2 37.4 (35-45) 10/23/16 04:47 POC ABG pO2 108 (80-105) H 10/23/16 04:47 POC ABG HCO3 27.6 10/23/16 04:47 POC ABG Total CO2 29 10/23/16 04:47 POC ABG O2 Sat 99 10/23/16 04:47 PT/INR, D-dimer PT 49.1 Sec. (12.2-14.9) H 10/21/16 11:25 INR 5.28 (0.87-1.13) H* 10/21/16 11:25 Abnormal lab findings: Abnormal Labs 10/13/16 10/13/16 10/13/16 14:50 21:40 22:05 WBC RBC Hgb Hct MCV MCHC RDW Plt Count Seg Neuts % (Manual) Lymphocytes % (Manual) Nucleated RBC % Seg Neutrophils # Man Lymphocytes # (Manual) Haptoglobin PT INR Fibrinogen Lupus Anticoagulant LA PTT Baseline POC ABG pH POC ABG pCO2 POC ABG pO2 Sodium Potassium Chloride Carbon Dioxide BUN Creatinine Glucose POC Glucose 52 L 43 L Lactic Acid Uric Acid Calcium Phosphorus Iron TIBC Erythropoietin Ferritin Total Bilirubin Direct Bilirubin AST ALT Alkaline Phosphatase Lactate Dehydrogenase C-Reactive Protein Serum Total Protein 5.6 L Total Protein Albumin 2.2 L Lyyve-9-Ittbwwcwu 0.5 H Abnorm Protein Band 1 1.4 H PEP Interpretation see below H Crossmatch 05/18/17 05/19/17 05/19/17 23:18 03:00 03:00 WBC RBC Hgb Hct MCV MCHC RDW Plt Count Seg Neuts % (Manual) Lymphocytes % (Manual) Nucleated RBC % Seg Neutrophils # Man Lymphocytes # (Manual) Haptoglobin PT INR Fibrinogen Lupus Anticoagulant see below H LA PTT Baseline 55 H POC ABG pH POC ABG pCO2 POC ABG pO2 Sodium Potassium Chloride Carbon Dioxide BUN Creatinine Glucose POC Glucose 113 H Lactic Acid Uric Acid Calcium Phosphorus Iron TIBC Erythropoietin Ferritin Total Bilirubin Direct Bilirubin AST ALT Alkaline Phosphatase Lactate Dehydrogenase 406 H C-Reactive Protein Serum Total Protein Total Protein Albumin Jvrqs-7-Htatqfmdm Abnorm Protein Band 1 PEP Interpretation Crossmatch 10/14/16 10/14/16 10/14/16 03:00 03:00 04:34 WBC 1.3 L* RBC 2.33 L Hgb 7.3 L Hct 21.7 L MCV MCHC RDW 19.8 H Plt Count 99 L Seg Neuts % (Manual) Lymphocytes % (Manual) 3.0 L Nucleated RBC % Seg Neutrophils # Man 0.9 L Lymphocytes # (Manual) 0.0 L Haptoglobin PT INR Fibrinogen Lupus Anticoagulant LA PTT Baseline POC ABG pH POC ABG pCO2 POC ABG pO2 Sodium Potassium Chloride Carbon Dioxide 18 L BUN 73 H Creatinine 9.8 H Glucose 59 L POC Glucose Lactic Acid Uric Acid 8.0 H Calcium 8.2 L Phosphorus 6.60 H Iron 13 L TIBC 160 L Erythropoietin Ferritin Total Bilirubin Direct Bilirubin AST ALT Alkaline Phosphatase Lactate Dehydrogenase C-Reactive Protein Serum Total Protein Total Protein Albumin Rhjud-1-Ngqyixbst Abnorm Protein Band 1 PEP Interpretation Crossmatch 10/14/16 10/14/16 10/14/16 05:27 06:29 07:34 WBC RBC Hgb Hct MCV MCHC RDW Plt Count Seg Neuts % (Manual) Lymphocytes % (Manual) Nucleated RBC % Seg Neutrophils # Man Lymphocytes # (Manual) Haptoglobin PT INR Fibrinogen Lupus Anticoagulant LA PTT Baseline POC ABG pH POC ABG pCO2 POC ABG pO2 Sodium Potassium Chloride Carbon Dioxide BUN Creatinine Glucose POC Glucose < 40 L 63 L < 40 L Lactic Acid Uric Acid Calcium Phosphorus Iron TIBC Erythropoietin Ferritin Total Bilirubin Direct Bilirubin AST ALT Alkaline Phosphatase Lactate Dehydrogenase C-Reactive Protein Serum Total Protein Total Protein Albumin Oyqrc-2-Zareaqynz Abnorm Protein Band 1 PEP Interpretation Crossmatch 10/14/16 10/14/16 10/14/16 09:58 09:58 09:58 WBC RBC Hgb Hct MCV MCHC RDW Plt Count Seg Neuts % (Manual) Lymphocytes % (Manual) Nucleated RBC % Seg Neutrophils # Man Lymphocytes # (Manual) Haptoglobin 218 H PT INR Fibrinogen 557 H Lupus Anticoagulant LA PTT Baseline POC ABG pH POC ABG pCO2 POC ABG pO2 Sodium Potassium Chloride Carbon Dioxide BUN Creatinine Glucose POC Glucose Lactic Acid Uric Acid Calcium Phosphorus Iron TIBC Erythropoietin Ferritin Total Bilirubin 1.30 H Direct Bilirubin 1.1 H AST ALT Alkaline Phosphatase Lactate Dehydrogenase C-Reactive Protein Serum Total Protein Total Protein Albumin Mluml-9-Hkasedxfv Abnorm Protein Band 1 PEP Interpretation Crossmatch 10/14/16 10/14/16 10/14/16 10:57 11:15 12:52 WBC RBC Hgb Hct MCV MCHC RDW Plt Count Seg Neuts % (Manual) Lymphocytes % (Manual) Nucleated RBC % Seg Neutrophils # Man Lymphocytes # (Manual) Haptoglobin PT INR Fibrinogen Lupus Anticoagulant LA PTT Baseline POC ABG pH POC ABG pCO2 POC ABG pO2 Sodium Potassium Chloride Carbon Dioxide BUN Creatinine Glucose POC Glucose < 40 L < 40 L Lactic Acid 9.60 H* Uric Acid Calcium Phosphorus Iron TIBC Erythropoietin Ferritin Total Bilirubin Direct Bilirubin AST ALT Alkaline Phosphatase Lactate Dehydrogenase C-Reactive Protein Serum Total Protein Total Protein Albumin Etnlp-0-Cvtyfzyjh Abnorm Protein Band 1 PEP Interpretation Crossmatch 10/14/16 10/14/16 10/14/16 12:52 13:17 14:12 WBC RBC Hgb Hct MCV MCHC RDW Plt Count Seg Neuts % (Manual) Lymphocytes % (Manual) Nucleated RBC % Seg Neutrophils # Man Lymphocytes # (Manual) Haptoglobin PT INR Fibrinogen Lupus Anticoagulant LA PTT Baseline POC ABG pH POC ABG pCO2 POC ABG pO2 Sodium Potassium Chloride Carbon Dioxide BUN Creatinine Glucose POC Glucose < 40 L < 40 L Lactic Acid Uric Acid Calcium Phosphorus Iron TIBC Erythropoietin Ferritin Total Bilirubin Direct Bilirubin AST ALT Alkaline Phosphatase Lactate Dehydrogenase C-Reactive Protein 40.40 H Serum Total Protein Total Protein Albumin Duryu-9-Bvmirshed Abnorm Protein Band 1 PEP Interpretation Crossmatch 10/14/16 10/14/16 10/14/16 15:02 15:33 15:33 WBC RBC Hgb Hct MCV MCHC RDW Plt Count Seg Neuts % (Manual) Lymphocytes % (Manual) Nucleated RBC % Seg Neutrophils # Man Lymphocytes # (Manual) Haptoglobin PT INR Fibrinogen Lupus Anticoagulant LA PTT Baseline POC ABG pH POC ABG pCO2 POC ABG pO2 Sodium Potassium Chloride Carbon Dioxide BUN Creatinine Glucose 19 L* POC Glucose < 40 L Lactic Acid 11.60 H* Uric Acid Calcium Phosphorus Iron TIBC Erythropoietin Ferritin Total Bilirubin Direct Bilirubin AST ALT Alkaline Phosphatase Lactate Dehydrogenase C-Reactive Protein Serum Total Protein Total Protein Albumin Woweh-0-Hrpgrfhye Abnorm Protein Band 1 PEP Interpretation Crossmatch 10/14/16 10/14/16 10/14/16 17:14 18:03 21:25 WBC RBC Hgb Hct MCV MCHC RDW Plt Count Seg Neuts % (Manual) Lymphocytes % (Manual) Nucleated RBC % Seg Neutrophils # Man Lymphocytes # (Manual) Haptoglobin PT 28.9 H INR 2.71 H Fibrinogen Lupus Anticoagulant LA PTT Baseline POC ABG pH POC ABG pCO2 POC ABG pO2 Sodium Potassium Chloride Carbon Dioxide BUN Creatinine Glucose POC Glucose < 40 L 57 L Lactic Acid Uric Acid Calcium Phosphorus Iron TIBC Erythropoietin Ferritin Total Bilirubin Direct Bilirubin AST ALT Alkaline Phosphatase Lactate Dehydrogenase C-Reactive Protein Serum Total Protein Total Protein Albumin Uegws-1-Aluxwmiom Abnorm Protein Band 1 PEP Interpretation Crossmatch 10/15/16 10/15/16 10/15/16 05:32 05:35 05:35 WBC RBC 2.62 L Hgb 8.1 L Hct 25.8 L MCV 98 H D MCHC 31 L RDW 21.2 H Plt Count 61 L Seg Neuts % (Manual) 27.0 L Lymphocytes % (Manual) 10.0 L Nucleated RBC % 2.0 H Seg Neutrophils # Man Lymphocytes # (Manual) 0.8 L Haptoglobin PT INR Fibrinogen Lupus Anticoagulant LA PTT Baseline POC ABG pH POC ABG pCO2 POC ABG pO2 Sodium Potassium Chloride Carbon Dioxide BUN Creatinine Glucose POC Glucose < 40 L Lactic Acid Uric Acid Calcium Phosphorus Iron TIBC Erythropoietin Ferritin Total Bilirubin Direct Bilirubin AST ALT Alkaline Phosphatase Lactate Dehydrogenase 3871 H C-Reactive Protein Serum Total Protein Total Protein Albumin Qfiyi-4-Qzfoxamgy Abnorm Protein Band 1 PEP Interpretation Crossmatch 10/15/16 10/15/16 10/15/16 05:35 05:35 05:35 WBC RBC Hgb Hct MCV MCHC RDW Plt Count Seg Neuts % (Manual) Lymphocytes % (Manual) Nucleated RBC % Seg Neutrophils # Man Lymphocytes # (Manual) Haptoglobin PT INR Fibrinogen Lupus Anticoagulant LA PTT Baseline POC ABG pH POC ABG pCO2 POC ABG pO2 Sodium 136 L Potassium 5.3 H D Chloride 91.4 L Carbon Dioxide 6 L* D BUN 57 H Creatinine 7.1 H Glucose 11 L* POC Glucose Lactic Acid 13.60 H* Uric Acid Calcium 7.7 L Phosphorus 10.10 H D Iron TIBC 166 L Erythropoietin Ferritin 9562.0 H Total Bilirubin Direct Bilirubin AST ALT Alkaline Phosphatase Lactate Dehydrogenase C-Reactive Protein Serum Total Protein Total Protein Albumin Yzzpc-4-Dslydjkgq Abnorm Protein Band 1 PEP Interpretation Crossmatch 10/15/16 10/15/16 10/15/16 05:51 06:22 06:52 WBC RBC Hgb Hct MCV MCHC RDW Plt Count Seg Neuts % (Manual) Lymphocytes % (Manual) Nucleated RBC % Seg Neutrophils # Man Lymphocytes # (Manual) Haptoglobin PT INR Fibrinogen Lupus Anticoagulant LA PTT Baseline POC ABG pH 7.189 L POC ABG pCO2 28.9 L POC ABG pO2 Sodium Potassium Chloride Carbon Dioxide BUN Creatinine Glucose POC Glucose 59 L 111 H Lactic Acid Uric Acid Calcium Phosphorus Iron TIBC Erythropoietin Ferritin Total Bilirubin Direct Bilirubin AST ALT Alkaline Phosphatase Lactate Dehydrogenase C-Reactive Protein Serum Total Protein Total Protein Albumin Tmhdb-2-Mpepskrsd Abnorm Protein Band 1 PEP Interpretation Crossmatch 10/15/16 10/15/16 10/15/16 08:00 09:57 11:42 WBC RBC Hgb Hct MCV MCHC RDW Plt Count Seg Neuts % (Manual) Lymphocytes % (Manual) Nucleated RBC % Seg Neutrophils # Man Lymphocytes # (Manual) Haptoglobin PT INR Fibrinogen Lupus Anticoagulant LA PTT Baseline POC ABG pH POC ABG pCO2 POC ABG pO2 Sodium Potassium Chloride Carbon Dioxide BUN Creatinine Glucose POC Glucose 63 L 143 H 203 H Lactic Acid Uric Acid Calcium Phosphorus Iron TIBC Erythropoietin Ferritin Total Bilirubin Direct Bilirubin AST ALT Alkaline Phosphatase Lactate Dehydrogenase C-Reactive Protein Serum Total Protein Total Protein Albumin Ogjzg-4-Pfabjllic Abnorm Protein Band 1 PEP Interpretation Crossmatch 10/15/16 10/15/16 10/15/16 12:00 12:00 13:00 WBC RBC Hgb Hct MCV MCHC RDW Plt Count Seg Neuts % (Manual) Lymphocytes % (Manual) Nucleated RBC % Seg Neutrophils # Man Lymphocytes # (Manual) Haptoglobin <15 L PT INR Fibrinogen Lupus Anticoagulant LA PTT Baseline POC ABG pH POC ABG pCO2 POC ABG pO2 Sodium Potassium Chloride Carbon Dioxide BUN Creatinine Glucose POC Glucose 136 H Lactic Acid 16.30 H* Uric Acid Calcium Phosphorus Iron TIBC Erythropoietin Ferritin Total Bilirubin Direct Bilirubin AST ALT Alkaline Phosphatase Lactate Dehydrogenase C-Reactive Protein Serum Total Protein Total Protein Albumin Kykfc-0-Nejipylii Abnorm Protein Band 1 PEP Interpretation Crossmatch 10/15/16 10/15/16 10/15/16 14:06 15:15 16:23 WBC RBC Hgb Hct MCV MCHC RDW Plt Count Seg Neuts % (Manual) Lymphocytes % (Manual) Nucleated RBC % Seg Neutrophils # Man Lymphocytes # (Manual) Haptoglobin PT INR Fibrinogen Lupus Anticoagulant LA PTT Baseline POC ABG pH POC ABG pCO2 POC ABG pO2 Sodium Potassium Chloride Carbon Dioxide BUN Creatinine Glucose POC Glucose 132 H 64 L Lactic Acid 20.40 H* Uric Acid Calcium Phosphorus Iron TIBC Erythropoietin Ferritin Total Bilirubin Direct Bilirubin AST ALT Alkaline Phosphatase Lactate Dehydrogenase C-Reactive Protein Serum Total Protein Total Protein Albumin Eaiux-4-Ajoaigqrc Abnorm Protein Band 1 PEP Interpretation Crossmatch 10/15/16 10/15/16 10/15/16 16:40 17:00 17:10 WBC RBC Hgb Hct MCV MCHC RDW Plt Count Seg Neuts % (Manual) Lymphocytes % (Manual) Nucleated RBC % Seg Neutrophils # Man Lymphocytes # (Manual) Haptoglobin PT INR Fibrinogen Lupus Anticoagulant LA PTT Baseline POC ABG pH 7.323 L POC ABG pCO2 25.8 L POC ABG pO2 135 H Sodium Potassium Chloride Carbon Dioxide BUN Creatinine Glucose POC Glucose 159 H Lactic Acid 20.20 H* Uric Acid Calcium Phosphorus Iron TIBC Erythropoietin Ferritin Total Bilirubin Direct Bilirubin AST ALT Alkaline Phosphatase Lactate Dehydrogenase C-Reactive Protein Serum Total Protein Total Protein Albumin Utzvn-1-Tktsofsyb Abnorm Protein Band 1 PEP Interpretation Crossmatch 10/15/16 10/15/16 10/15/16 17:46 17:53 18:45 WBC RBC Hgb Hct MCV MCHC RDW Plt Count Seg Neuts % (Manual) Lymphocytes % (Manual) Nucleated RBC % Seg Neutrophils # Man Lymphocytes # (Manual) Haptoglobin PT INR Fibrinogen Lupus Anticoagulant LA PTT Baseline POC ABG pH POC ABG pCO2 POC ABG pO2 Sodium Potassium Chloride Carbon Dioxide BUN Creatinine Glucose POC Glucose 126 H 143 H Lactic Acid 21.40 H* Uric Acid Calcium Phosphorus Iron TIBC Erythropoietin Ferritin Total Bilirubin Direct Bilirubin AST ALT Alkaline Phosphatase Lactate Dehydrogenase C-Reactive Protein Serum Total Protein Total Protein Albumin Deshx-4-Rqscikkez Abnorm Protein Band 1 PEP Interpretation Crossmatch 10/15/16 10/15/16 10/16/16 20:03 22:59 00:06 WBC RBC Hgb Hct MCV MCHC RDW Plt Count Seg Neuts % (Manual) Lymphocytes % (Manual) Nucleated RBC % Seg Neutrophils # Man Lymphocytes # (Manual) Haptoglobin PT INR Fibrinogen Lupus Anticoagulant LA PTT Baseline POC ABG pH POC ABG pCO2 POC ABG pO2 Sodium Potassium Chloride Carbon Dioxide BUN Creatinine Glucose POC Glucose 66 L 53 L 126 H Lactic Acid Uric Acid Calcium Phosphorus Iron TIBC Erythropoietin Ferritin Total Bilirubin Direct Bilirubin AST ALT Alkaline Phosphatase Lactate Dehydrogenase C-Reactive Protein Serum Total Protein Total Protein Albumin Gygvs-5-Ffnkukelz Abnorm Protein Band 1 PEP Interpretation Crossmatch 10/16/16 10/16/16 10/16/16 01:03 03:55 04:00 WBC RBC Hgb Hct MCV MCHC RDW Plt Count Seg Neuts % (Manual) Lymphocytes % (Manual) Nucleated RBC % Seg Neutrophils # Man Lymphocytes # (Manual) Haptoglobin PT INR Fibrinogen Lupus Anticoagulant LA PTT Baseline POC ABG pH POC ABG pCO2 POC ABG pO2 Sodium Potassium Chloride Carbon Dioxide BUN Creatinine Glucose POC Glucose 107 H 260 H Lactic Acid 18.00 H* Uric Acid Calcium Phosphorus Iron TIBC Erythropoietin Ferritin Total Bilirubin Direct Bilirubin AST ALT Alkaline Phosphatase Lactate Dehydrogenase C-Reactive Protein Serum Total Protein Total Protein Albumin Edizd-2-Jggfirgag Abnorm Protein Band 1 PEP Interpretation Crossmatch 10/16/16 10/16/16 10/16/16 04:03 07:58 08:34 WBC RBC Hgb Hct MCV MCHC RDW Plt Count Seg Neuts % (Manual) Lymphocytes % (Manual) Nucleated RBC % Seg Neutrophils # Man Lymphocytes # (Manual) Haptoglobin PT INR Fibrinogen Lupus Anticoagulant LA PTT Baseline POC ABG pH 7.527 H POC ABG pCO2 32.9 L POC ABG pO2 119 H Sodium Potassium Chloride Carbon Dioxide BUN Creatinine Glucose POC Glucose 120 H 66 L Lactic Acid Uric Acid Calcium Phosphorus Iron TIBC Erythropoietin Ferritin Total Bilirubin Direct Bilirubin AST ALT Alkaline Phosphatase Lactate Dehydrogenase C-Reactive Protein Serum Total Protein Total Protein Albumin Nvmyf-0-Pdhbbtftb Abnorm Protein Band 1 PEP Interpretation Crossmatch 10/16/16 10/16/16 10/16/16 09:13 10:06 10:57 WBC RBC Hgb Hct MCV MCHC RDW Plt Count Seg Neuts % (Manual) Lymphocytes % (Manual) Nucleated RBC % Seg Neutrophils # Man Lymphocytes # (Manual) Haptoglobin PT INR Fibrinogen Lupus Anticoagulant LA PTT Baseline POC ABG pH POC ABG pCO2 POC ABG pO2 Sodium Potassium Chloride Carbon Dioxide BUN Creatinine Glucose POC Glucose 147 H 137 H 140 H Lactic Acid Uric Acid Calcium Phosphorus Iron TIBC Erythropoietin Ferritin Total Bilirubin Direct Bilirubin AST ALT Alkaline Phosphatase Lactate Dehydrogenase C-Reactive Protein Serum Total Protein Total Protein Albumin Rjsvz-0-Bfkydnzcy Abnorm Protein Band 1 PEP Interpretation Crossmatch 10/16/16 10/16/16 10/16/16 11:15 11:15 11:15 WBC 25.8 H RBC 2.30 L Hgb 7.0 L Hct 22.3 L MCV 97 H MCHC 31 L RDW 21.2 H Plt Count 42 L Seg Neuts % (Manual) Lymphocytes % (Manual) 3.0 L Nucleated RBC % 2.0 H Seg Neutrophils # Man 11.1 H Lymphocytes # (Manual) 0.8 L Haptoglobin PT INR Fibrinogen Lupus Anticoagulant LA PTT Baseline POC ABG pH POC ABG pCO2 POC ABG pO2 Sodium Potassium Chloride 81.7 L Carbon Dioxide 13 L D BUN 61 H Creatinine 6.2 H Glucose 171 H POC Glucose Lactic Acid 22.70 H* Uric Acid Calcium 7.1 L Phosphorus 9.10 H Iron TIBC Erythropoietin Ferritin Total Bilirubin Direct Bilirubin AST ALT Alkaline Phosphatase Lactate Dehydrogenase C-Reactive Protein Serum Total Protein Total Protein Albumin Myvxz-1-Auzhghfjh Abnorm Protein Band 1 PEP Interpretation Crossmatch 10/16/16 10/16/16 10/16/16 15:10 15:50 18:11 WBC RBC Hgb Hct MCV MCHC RDW Plt Count Seg Neuts % (Manual) Lymphocytes % (Manual) Nucleated RBC % Seg Neutrophils # Man Lymphocytes # (Manual) Haptoglobin PT INR Fibrinogen Lupus Anticoagulant LA PTT Baseline POC ABG pH POC ABG pCO2 POC ABG pO2 Sodium Potassium Chloride Carbon Dioxide BUN Creatinine Glucose POC Glucose 47 L 164 H 58 L Lactic Acid Uric Acid Calcium Phosphorus Iron TIBC Erythropoietin Ferritin Total Bilirubin Direct Bilirubin AST ALT Alkaline Phosphatase Lactate Dehydrogenase C-Reactive Protein Serum Total Protein Total Protein Albumin Gwhxo-1-Olgpmplte Abnorm Protein Band 1 PEP Interpretation Crossmatch 10/16/16 10/16/16 10/17/16 18:26 21:06 00:06 WBC RBC Hgb Hct MCV MCHC RDW Plt Count Seg Neuts % (Manual) Lymphocytes % (Manual) Nucleated RBC % Seg Neutrophils # Man Lymphocytes # (Manual) Haptoglobin PT INR Fibrinogen Lupus Anticoagulant LA PTT Baseline POC ABG pH POC ABG pCO2 POC ABG pO2 489 H Sodium Potassium Chloride Carbon Dioxide BUN Creatinine Glucose POC Glucose 52 L 120 H Lactic Acid Uric Acid Calcium Phosphorus Iron TIBC Erythropoietin Ferritin Total Bilirubin Direct Bilirubin AST ALT Alkaline Phosphatase Lactate Dehydrogenase C-Reactive Protein Serum Total Protein Total Protein Albumin Qnmzx-9-Cbunpnoyg Abnorm Protein Band 1 PEP Interpretation Crossmatch 10/17/16 10/17/16 10/17/16 04:55 04:55 05:04 WBC 25.5 H RBC 2.23 L Hgb 6.6 L Hct 21.2 L MCV 95 H MCHC 31 L RDW 20.5 H Plt Count 35 L Seg Neuts % (Manual) 79.0 H Lymphocytes % (Manual) 0 L Nucleated RBC % Seg Neutrophils # Man 20.1 H Lymphocytes # (Manual) 0.0 L Haptoglobin PT INR Fibrinogen Lupus Anticoagulant LA PTT Baseline POC ABG pH POC ABG pCO2 27.2 L POC ABG pO2 162 H Sodium Potassium Chloride 91.5 L Carbon Dioxide 16 L BUN 45 H Creatinine 4.5 H Glucose 103 H POC Glucose Lactic Acid Uric Acid Calcium 6.9 L Phosphorus 5.80 H D Iron TIBC Erythropoietin Ferritin Total Bilirubin Direct Bilirubin AST ALT Alkaline Phosphatase Lactate Dehydrogenase C-Reactive Protein Serum Total Protein Total Protein Albumin Cbkhg-7-Xbozyrlde Abnorm Protein Band 1 PEP Interpretation Crossmatch 10/17/16 10/17/16 10/17/16 07:59 09:04 10:04 WBC RBC Hgb Hct MCV MCHC RDW Plt Count Seg Neuts % (Manual) Lymphocytes % (Manual) Nucleated RBC % Seg Neutrophils # Man Lymphocytes # (Manual) Haptoglobin PT INR Fibrinogen Lupus Anticoagulant LA PTT Baseline POC ABG pH POC ABG pCO2 POC ABG pO2 Sodium Potassium Chloride Carbon Dioxide BUN Creatinine Glucose POC Glucose 65 L 118 H Lactic Acid Uric Acid Calcium Phosphorus Iron TIBC Erythropoietin Ferritin Total Bilirubin Direct Bilirubin AST ALT Alkaline Phosphatase Lactate Dehydrogenase C-Reactive Protein Serum Total Protein Total Protein Albumin Gqsst-9-Cirytperq Abnorm Protein Band 1 PEP Interpretation Crossmatch See Detail 10/17/16 10/17/16 10/17/16 11:52 13:08 15:42 WBC RBC Hgb Hct MCV MCHC RDW Plt Count Seg Neuts % (Manual) Lymphocytes % (Manual) Nucleated RBC % Seg Neutrophils # Man Lymphocytes # (Manual) Haptoglobin PT INR Fibrinogen Lupus Anticoagulant LA PTT Baseline POC ABG pH POC ABG pCO2 POC ABG pO2 Sodium Potassium Chloride Carbon Dioxide BUN Creatinine Glucose POC Glucose 125 H 106 H 55 L Lactic Acid Uric Acid Calcium Phosphorus Iron TIBC Erythropoietin Ferritin Total Bilirubin Direct Bilirubin AST ALT Alkaline Phosphatase Lactate Dehydrogenase C-Reactive Protein Serum Total Protein Total Protein Albumin Ipsme-9-Ahgxiyuok Abnorm Protein Band 1 PEP Interpretation Crossmatch 10/17/16 10/17/16 10/17/16 17:39 20:37 21:02 WBC RBC Hgb Hct MCV MCHC RDW Plt Count Seg Neuts % (Manual) Lymphocytes % (Manual) Nucleated RBC % Seg Neutrophils # Man Lymphocytes # (Manual) Haptoglobin PT INR Fibrinogen Lupus Anticoagulant LA PTT Baseline POC ABG pH POC ABG pCO2 28.2 L POC ABG pO2 Sodium Potassium Chloride Carbon Dioxide BUN Creatinine Glucose POC Glucose < 40 L 106 H Lactic Acid Uric Acid Calcium Phosphorus Iron TIBC Erythropoietin Ferritin Total Bilirubin Direct Bilirubin AST ALT Alkaline Phosphatase Lactate Dehydrogenase C-Reactive Protein Serum Total Protein Total Protein Albumin Asgct-0-Ocbldcwhv Abnorm Protein Band 1 PEP Interpretation Crossmatch 10/17/16 10/17/16 10/18/16 22:18 23:14 00:28 WBC RBC Hgb Hct MCV MCHC RDW Plt Count Seg Neuts % (Manual) Lymphocytes % (Manual) Nucleated RBC % Seg Neutrophils # Man Lymphocytes # (Manual) Haptoglobin PT INR Fibrinogen Lupus Anticoagulant LA PTT Baseline POC ABG pH POC ABG pCO2 POC ABG pO2 Sodium Potassium Chloride Carbon Dioxide BUN Creatinine Glucose POC Glucose 111 H 118 H 112 H Lactic Acid Uric Acid Calcium Phosphorus Iron TIBC Erythropoietin Ferritin Total Bilirubin Direct Bilirubin AST ALT Alkaline Phosphatase Lactate Dehydrogenase C-Reactive Protein Serum Total Protein Total Protein Albumin Jkmav-6-Oluybsnwu Abnorm Protein Band 1 PEP Interpretation Crossmatch 10/18/16 10/18/16 10/18/16 05:00 05:00 05:15 WBC 27.3 H RBC 2.75 L Hgb 7.9 L Hct 25.3 L MCV MCHC 31 L RDW 20.7 H Plt Count 31 L Seg Neuts % (Manual) 87.0 H Lymphocytes % (Manual) 1.0 L Nucleated RBC % 1.0 H Seg Neutrophils # Man 23.8 H Lymphocytes # (Manual) 0.3 L Haptoglobin PT INR Fibrinogen Lupus Anticoagulant LA PTT Baseline POC ABG pH 7.466 H POC ABG pCO2 25.1 L POC ABG pO2 Sodium Potassium Chloride 88.7 L Carbon Dioxide 18 L BUN 66 H Creatinine 4.7 H Glucose POC Glucose Lactic Acid Uric Acid Calcium 6.1 L Phosphorus 7.30 H D Iron TIBC Erythropoietin Ferritin Total Bilirubin Direct Bilirubin AST ALT Alkaline Phosphatase Lactate Dehydrogenase C-Reactive Protein Serum Total Protein Total Protein Albumin Qrprh-9-Zyfvcixkc Abnorm Protein Band 1 PEP Interpretation Crossmatch 10/18/16 10/18/16 10/18/16 07:15 07:44 09:07 WBC RBC Hgb Hct MCV MCHC RDW Plt Count Seg Neuts % (Manual) Lymphocytes % (Manual) Nucleated RBC % Seg Neutrophils # Man Lymphocytes # (Manual) Haptoglobin PT INR Fibrinogen Lupus Anticoagulant LA PTT Baseline POC ABG pH POC ABG pCO2 POC ABG pO2 Sodium Potassium Chloride Carbon Dioxide BUN Creatinine Glucose POC Glucose 64 L 156 H 117 H Lactic Acid Uric Acid Calcium Phosphorus Iron TIBC Erythropoietin Ferritin Total Bilirubin Direct Bilirubin AST ALT Alkaline Phosphatase Lactate Dehydrogenase C-Reactive Protein Serum Total Protein Total Protein Albumin Bgtwg-2-Jeqpbmknv Abnorm Protein Band 1 PEP Interpretation Crossmatch 10/18/16 10/18/16 10/18/16 09:15 14:00 18:21 WBC RBC Hgb Hct MCV MCHC RDW Plt Count Seg Neuts % (Manual) Lymphocytes % (Manual) Nucleated RBC % Seg Neutrophils # Man Lymphocytes # (Manual) Haptoglobin PT INR Fibrinogen Lupus Anticoagulant LA PTT Baseline POC ABG pH POC ABG pCO2 POC ABG pO2 Sodium Potassium Chloride Carbon Dioxide BUN Creatinine Glucose POC Glucose 106 H 112 H Lactic Acid 14.30 H* Uric Acid Calcium Phosphorus Iron TIBC Erythropoietin Ferritin Total Bilirubin Direct Bilirubin AST ALT Alkaline Phosphatase Lactate Dehydrogenase C-Reactive Protein Serum Total Protein Total Protein Albumin Umurh-4-Cxrwvcvji Abnorm Protein Band 1 PEP Interpretation Crossmatch 10/18/16 10/18/16 10/18/16 19:58 20:55 22:11 WBC RBC Hgb Hct MCV MCHC RDW Plt Count Seg Neuts % (Manual) Lymphocytes % (Manual) Nucleated RBC % Seg Neutrophils # Man Lymphocytes # (Manual) Haptoglobin PT INR Fibrinogen Lupus Anticoagulant LA PTT Baseline POC ABG pH POC ABG pCO2 POC ABG pO2 Sodium Potassium Chloride Carbon Dioxide BUN Creatinine Glucose POC Glucose 127 H 125 H 159 H Lactic Acid Uric Acid Calcium Phosphorus Iron TIBC Erythropoietin Ferritin Total Bilirubin Direct Bilirubin AST ALT Alkaline Phosphatase Lactate Dehydrogenase C-Reactive Protein Serum Total Protein Total Protein Albumin Xgmur-5-Osvgnseok Abnorm Protein Band 1 PEP Interpretation Crossmatch 10/18/16 10/18/16 10/19/16 23:11 23:57 01:06 WBC RBC Hgb Hct MCV MCHC RDW Plt Count Seg Neuts % (Manual) Lymphocytes % (Manual) Nucleated RBC % Seg Neutrophils # Man Lymphocytes # (Manual) Haptoglobin PT INR Fibrinogen Lupus Anticoagulant LA PTT Baseline POC ABG pH POC ABG pCO2 POC ABG pO2 Sodium Potassium Chloride Carbon Dioxide BUN Creatinine Glucose POC Glucose 122 H 137 H 162 H Lactic Acid Uric Acid Calcium Phosphorus Iron TIBC Erythropoietin Ferritin Total Bilirubin Direct Bilirubin AST ALT Alkaline Phosphatase Lactate Dehydrogenase C-Reactive Protein Serum Total Protein Total Protein Albumin Oesnd-2-Drhmhefkl Abnorm Protein Band 1 PEP Interpretation Crossmatch 10/19/16 10/19/16 10/19/16 01:59 03:07 04:10 WBC RBC Hgb Hct MCV MCHC RDW Plt Count Seg Neuts % (Manual) Lymphocytes % (Manual) Nucleated RBC % Seg Neutrophils # Man Lymphocytes # (Manual) Haptoglobin PT INR Fibrinogen Lupus Anticoagulant LA PTT Baseline POC ABG pH POC ABG pCO2 POC ABG pO2 Sodium Potassium Chloride Carbon Dioxide BUN Creatinine Glucose POC Glucose 154 H 178 H 186 H Lactic Acid Uric Acid Calcium Phosphorus Iron TIBC Erythropoietin Ferritin Total Bilirubin Direct Bilirubin AST ALT Alkaline Phosphatase Lactate Dehydrogenase C-Reactive Protein Serum Total Protein Total Protein Albumin Huikt-5-Qandtzsih Abnorm Protein Band 1 PEP Interpretation Crossmatch 10/19/16 10/19/16 10/19/16 05:14 05:15 05:47 WBC RBC Hgb Hct MCV MCHC RDW Plt Count Seg Neuts % (Manual) Lymphocytes % (Manual) Nucleated RBC % Seg Neutrophils # Man Lymphocytes # (Manual) Haptoglobin PT INR Fibrinogen Lupus Anticoagulant LA PTT Baseline POC ABG pH 7.581 H POC ABG pCO2 22.9 L POC ABG pO2 58 L Sodium Potassium Chloride Carbon Dioxide BUN Creatinine Glucose POC Glucose 197 H 204 H Lactic Acid Uric Acid Calcium Phosphorus Iron TIBC Erythropoietin Ferritin Total Bilirubin Direct Bilirubin AST ALT Alkaline Phosphatase Lactate Dehydrogenase C-Reactive Protein Serum Total Protein Total Protein Albumin Xdcct-7-Gzpyaqrnm Abnorm Protein Band 1 PEP Interpretation Crossmatch 10/19/16 10/19/16 10/19/16 06:00 06:00 07:51 WBC 23.0 H RBC 2.54 L Hgb 7.5 L Hct 23.0 L MCV MCHC RDW 20.7 H Plt Count 25 L Seg Neuts % (Manual) 91.0 H Lymphocytes % (Manual) 2.0 L Nucleated RBC % 1.0 H Seg Neutrophils # Man 20.9 H Lymphocytes # (Manual) 0.5 L Haptoglobin PT INR Fibrinogen Lupus Anticoagulant LA PTT Baseline POC ABG pH POC ABG pCO2 POC ABG pO2 Sodium Potassium Chloride 88.7 L Carbon Dioxide 21 L BUN 70 H Creatinine 3.9 H Glucose 189 H POC Glucose 145 H Lactic Acid Uric Acid Calcium 5.6 L* Phosphorus 6.30 H Iron TIBC Erythropoietin Ferritin Total Bilirubin Direct Bilirubin AST ALT Alkaline Phosphatase Lactate Dehydrogenase C-Reactive Protein Serum Total Protein Total Protein Albumin Gnnel-5-Tcrbclpci Abnorm Protein Band 1 PEP Interpretation Crossmatch 10/19/16 10/19/16 10/19/16 09:14 10:01 12:14 WBC RBC Hgb Hct MCV MCHC RDW Plt Count Seg Neuts % (Manual) Lymphocytes % (Manual) Nucleated RBC % Seg Neutrophils # Man Lymphocytes # (Manual) Haptoglobin PT INR Fibrinogen Lupus Anticoagulant LA PTT Baseline POC ABG pH POC ABG pCO2 POC ABG pO2 Sodium Potassium Chloride Carbon Dioxide BUN Creatinine Glucose POC Glucose 173 H 153 H 180 H Lactic Acid Uric Acid Calcium Phosphorus Iron TIBC Erythropoietin Ferritin Total Bilirubin Direct Bilirubin AST ALT Alkaline Phosphatase Lactate Dehydrogenase C-Reactive Protein Serum Total Protein Total Protein Albumin Oaqiq-8-Zzucacoel Abnorm Protein Band 1 PEP Interpretation Crossmatch 10/19/16 10/19/16 10/19/16 14:15 16:38 20:27 WBC RBC Hgb Hct MCV MCHC RDW Plt Count Seg Neuts % (Manual) Lymphocytes % (Manual) Nucleated RBC % Seg Neutrophils # Man Lymphocytes # (Manual) Haptoglobin PT INR Fibrinogen Lupus Anticoagulant LA PTT Baseline POC ABG pH POC ABG pCO2 POC ABG pO2 Sodium Potassium Chloride Carbon Dioxide BUN Creatinine Glucose POC Glucose 194 H 202 H Lactic Acid Uric Acid Calcium Phosphorus Iron TIBC Erythropoietin 148.2 H Ferritin Total Bilirubin Direct Bilirubin AST ALT Alkaline Phosphatase Lactate Dehydrogenase C-Reactive Protein Serum Total Protein Total Protein Albumin Fmoca-2-Bvdnivscp Abnorm Protein Band 1 PEP Interpretation Crossmatch 10/19/16 10/20/16 10/20/16 23:27 04:06 05:00 WBC RBC Hgb Hct MCV MCHC RDW Plt Count Seg Neuts % (Manual) Lymphocytes % (Manual) Nucleated RBC % Seg Neutrophils # Man Lymphocytes # (Manual) Haptoglobin PT INR Fibrinogen Lupus Anticoagulant LA PTT Baseline POC ABG pH POC ABG pCO2 POC ABG pO2 Sodium Potassium Chloride 88.8 L Carbon Dioxide BUN 93 H Creatinine 4.3 H Glucose 204 H POC Glucose 201 H 200 H Lactic Acid Uric Acid Calcium 5.2 L* Phosphorus Iron TIBC Erythropoietin Ferritin Total Bilirubin Direct Bilirubin AST ALT Alkaline Phosphatase Lactate Dehydrogenase C-Reactive Protein Serum Total Protein Total Protein Albumin Nhpmh-0-Waxzszhfp Abnorm Protein Band 1 PEP Interpretation Crossmatch 10/20/16 10/20/16 10/20/16 05:16 06:00 07:43 WBC 24.8 H RBC 2.52 L Hgb 7.4 L Hct 22.9 L MCV MCHC RDW 19.9 H Plt Count 23 L Seg Neuts % (Manual) 97.0 H Lymphocytes % (Manual) 1.0 L Nucleated RBC % 9.0 H Seg Neutrophils # Man 24.1 H Lymphocytes # (Manual) 0.2 L Haptoglobin PT INR Fibrinogen Lupus Anticoagulant LA PTT Baseline POC ABG pH 7.463 H POC ABG pCO2 POC ABG pO2 157 H Sodium Potassium Chloride Carbon Dioxide BUN Creatinine Glucose POC Glucose 192 H Lactic Acid Uric Acid Calcium Phosphorus Iron TIBC Erythropoietin Ferritin Total Bilirubin Direct Bilirubin AST ALT Alkaline Phosphatase Lactate Dehydrogenase C-Reactive Protein Serum Total Protein Total Protein Albumin Lwdzg-3-Ozebejaux Abnorm Protein Band 1 PEP Interpretation Crossmatch 10/20/16 10/20/16 10/20/16 12:11 15:32 21:23 WBC RBC Hgb Hct MCV MCHC RDW Plt Count Seg Neuts % (Manual) Lymphocytes % (Manual) Nucleated RBC % Seg Neutrophils # Man Lymphocytes # (Manual) Haptoglobin PT INR Fibrinogen Lupus Anticoagulant LA PTT Baseline POC ABG pH POC ABG pCO2 POC ABG pO2 Sodium Potassium Chloride Carbon Dioxide BUN Creatinine Glucose POC Glucose 172 H 216 H 271 H Lactic Acid Uric Acid Calcium Phosphorus Iron TIBC Erythropoietin Ferritin Total Bilirubin Direct Bilirubin AST ALT Alkaline Phosphatase Lactate Dehydrogenase C-Reactive Protein Serum Total Protein Total Protein Albumin Heudg-5-Xuwckqfid Abnorm Protein Band 1 PEP Interpretation Crossmatch 10/20/16 10/21/16 10/21/16 23:49 03:53 04:58 WBC RBC Hgb Hct MCV MCHC RDW Plt Count Seg Neuts % (Manual) Lymphocytes % (Manual) Nucleated RBC % Seg Neutrophils # Man Lymphocytes # (Manual) Haptoglobin PT INR Fibrinogen Lupus Anticoagulant LA PTT Baseline POC ABG pH 7.459 H POC ABG pCO2 POC ABG pO2 113 H Sodium 136 L Potassium 2.8 L* D Chloride 91.6 L Carbon Dioxide BUN 62 H Creatinine 2.8 H Glucose 236 H POC Glucose 317 H Lactic Acid Uric Acid Calcium 6.2 L D Phosphorus Iron TIBC Erythropoietin Ferritin Total Bilirubin 2.70 H Direct Bilirubin AST 73 H ALT 57 H Alkaline Phosphatase 158 H Lactate Dehydrogenase C-Reactive Protein Serum Total Protein Total Protein 4.9 L Albumin 2.6 L Dgcnd-8-Iaubemnzl Abnorm Protein Band 1 PEP Interpretation Crossmatch 10/21/16 10/21/16 10/21/16 05:25 07:11 10:30 WBC 28.1 H RBC 2.36 L Hgb 7.0 L Hct 21.6 L MCV MCHC RDW 20.0 H Plt Count 14 L* Seg Neuts % (Manual) 92.0 H Lymphocytes % (Manual) 0 L Nucleated RBC % 5.0 H Seg Neutrophils # Man 25.9 H Lymphocytes # (Manual) 0.0 L Haptoglobin PT INR Fibrinogen Lupus Anticoagulant LA PTT Baseline POC ABG pH POC ABG pCO2 POC ABG pO2 Sodium Potassium Chloride Carbon Dioxide BUN Creatinine Glucose POC Glucose 237 H 206 H Lactic Acid Uric Acid Calcium Phosphorus Iron TIBC Erythropoietin Ferritin Total Bilirubin Direct Bilirubin AST ALT Alkaline Phosphatase Lactate Dehydrogenase C-Reactive Protein Serum Total Protein Total Protein Albumin Rxvpg-7-Obquwtdbj Abnorm Protein Band 1 PEP Interpretation Crossmatch 10/21/16 10/21/16 10/21/16 11:25 12:31 16:33 WBC RBC Hgb Hct MCV MCHC RDW Plt Count Seg Neuts % (Manual) Lymphocytes % (Manual) Nucleated RBC % Seg Neutrophils # Man Lymphocytes # (Manual) Haptoglobin PT 49.1 H INR 5.28 H* Fibrinogen Lupus Anticoagulant LA PTT Baseline POC ABG pH POC ABG pCO2 POC ABG pO2 Sodium Potassium Chloride Carbon Dioxide BUN Creatinine Glucose POC Glucose 145 H 151 H Lactic Acid Uric Acid Calcium Phosphorus Iron TIBC Erythropoietin Ferritin Total Bilirubin Direct Bilirubin AST ALT Alkaline Phosphatase Lactate Dehydrogenase C-Reactive Protein Serum Total Protein Total Protein Albumin Wosdk-8-Tlftnhnvt Abnorm Protein Band 1 PEP Interpretation Crossmatch 10/21/16 10/22/16 10/22/16 19:53 00:00 05:23 WBC RBC Hgb Hct MCV MCHC RDW Plt Count Seg Neuts % (Manual) Lymphocytes % (Manual) Nucleated RBC % Seg Neutrophils # Man Lymphocytes # (Manual) Haptoglobin PT INR Fibrinogen Lupus Anticoagulant LA PTT Baseline POC ABG pH POC ABG pCO2 POC ABG pO2 Sodium Potassium Chloride Carbon Dioxide BUN Creatinine Glucose POC Glucose 170 H 168 H 131 H Lactic Acid Uric Acid Calcium Phosphorus Iron TIBC Erythropoietin Ferritin Total Bilirubin Direct Bilirubin AST ALT Alkaline Phosphatase Lactate Dehydrogenase C-Reactive Protein Serum Total Protein Total Protein Albumin Bnxzc-8-Mjoijqsil Abnorm Protein Band 1 PEP Interpretation Crossmatch 10/22/16 10/22/16 10/22/16 05:25 05:35 13:03 WBC RBC Hgb Hct MCV MCHC RDW Plt Count Seg Neuts % (Manual) Lymphocytes % (Manual) Nucleated RBC % Seg Neutrophils # Man Lymphocytes # (Manual) Haptoglobin PT INR Fibrinogen Lupus Anticoagulant LA PTT Baseline POC ABG pH 7.462 H POC ABG pCO2 POC ABG pO2 Sodium 135 L Potassium 3.0 L Chloride 88.5 L Carbon Dioxide BUN 84 H Creatinine 3.4 H Glucose 124 H POC Glucose 164 H Lactic Acid Uric Acid Calcium 5.9 L* Phosphorus Iron TIBC Erythropoietin Ferritin Total Bilirubin 2.00 H Direct Bilirubin AST 85 H ALT Alkaline Phosphatase 199 H Lactate Dehydrogenase C-Reactive Protein Serum Total Protein Total Protein 5.0 L Albumin 2.5 L Wvfsy-7-Kucjvfazr Abnorm Protein Band 1 PEP Interpretation Crossmatch 10/22/16 10/22/16 10/23/16 17:14 23:16 04:47 WBC RBC Hgb Hct MCV MCHC RDW Plt Count Seg Neuts % (Manual) Lymphocytes % (Manual) Nucleated RBC % Seg Neutrophils # Man Lymphocytes # (Manual) Haptoglobin PT INR Fibrinogen Lupus Anticoagulant LA PTT Baseline POC ABG pH 7.476 H POC ABG pCO2 POC ABG pO2 108 H Sodium Potassium Chloride Carbon Dioxide BUN Creatinine Glucose POC Glucose 188 H 167 H Lactic Acid Uric Acid Calcium Phosphorus Iron TIBC Erythropoietin Ferritin Total Bilirubin Direct Bilirubin AST ALT Alkaline Phosphatase Lactate Dehydrogenase C-Reactive Protein Serum Total Protein Total Protein Albumin Eesdz-5-Wtgiqogbl Abnorm Protein Band 1 PEP Interpretation Crossmatch 10/23/16 10/23/16 10/23/16 05:49 07:00 07:12 WBC 24.2 H RBC 2.27 L Hgb 7.0 L Hct 21.1 L MCV MCHC RDW 19.7 H Plt Count 35 L D Seg Neuts % (Manual) Lymphocytes % (Manual) Nucleated RBC % Seg Neutrophils # Man Lymphocytes # (Manual) Haptoglobin PT INR Fibrinogen Lupus Anticoagulant LA PTT Baseline POC ABG pH POC ABG pCO2 POC ABG pO2 Sodium Potassium 3.5 L Chloride 95.7 L Carbon Dioxide BUN 55 H Creatinine 2.7 H Glucose 103 H POC Glucose 106 H Lactic Acid Uric Acid Calcium 7.1 L D Phosphorus Iron TIBC Erythropoietin Ferritin Total Bilirubin Direct Bilirubin AST ALT Alkaline Phosphatase Lactate Dehydrogenase C-Reactive Protein Serum Total Protein Total Protein Albumin Dxniv-7-Lymvcedbd Abnorm Protein Band 1 PEP Interpretation Crossmatch 10/24/16 10/24/16 10/24/16 00:12 05:16 07:00 WBC 17.9 H RBC 2.12 L Hgb 6.5 L Hct 19.9 L* MCV MCHC RDW 19.3 H Plt Count 44 L Seg Neuts % (Manual) Lymphocytes % (Manual) Nucleated RBC % Seg Neutrophils # Man Lymphocytes # (Manual) Haptoglobin PT INR Fibrinogen Lupus Anticoagulant LA PTT Baseline POC ABG pH POC ABG pCO2 POC ABG pO2 Sodium Potassium Chloride Carbon Dioxide BUN Creatinine Glucose POC Glucose 116 H 135 H Lactic Acid Uric Acid Calcium Phosphorus Iron TIBC Erythropoietin Ferritin Total Bilirubin Direct Bilirubin AST ALT Alkaline Phosphatase Lactate Dehydrogenase C-Reactive Protein Serum Total Protein Total Protein Albumin Fcrdo-8-Jfnlosswe Abnorm Protein Band 1 PEP Interpretation Crossmatch 10/24/16 10/24/16 07:00 11:45 WBC RBC Hgb Hct MCV MCHC RDW Plt Count Seg Neuts % (Manual) Lymphocytes % (Manual) Nucleated RBC % Seg Neutrophils # Man Lymphocytes # (Manual) Haptoglobin PT INR Fibrinogen Lupus Anticoagulant LA PTT Baseline POC ABG pH POC ABG pCO2 POC ABG pO2 Sodium Potassium Chloride 92.9 L Carbon Dioxide BUN 74 H Creatinine 3.3 H Glucose 136 H POC Glucose Lactic Acid Uric Acid Calcium 6.6 L Phosphorus Iron TIBC Erythropoietin Ferritin Total Bilirubin 2.10 H Direct Bilirubin AST 68 H ALT Alkaline Phosphatase 224 H Lactate Dehydrogenase C-Reactive Protein Serum Total Protein Total Protein 4.8 L Albumin 2.3 L Zvqwr-3-Xxedxbncg Abnorm Protein Band 1 PEP Interpretation Crossmatch See Detail Chest x-ray: image reviewed Allied health notes reviewed: RT
--- NOTE | 2016-10-24 13:41 | Progress Note ---
Assessment and Plan - Patient Problems (1) Thrombocytopenia Current Visit: Yes Status: Acute Plan to address problem: Hematology on board, possible TTP, plasmapheresis ordered today, platelet count 44 today, follow up Hematology recs (2) Acute renal failure Current Visit: Yes Status: Acute Qualifiers: Acute renal failure type: A Plan to address problem: Renal function reviewed, SCr level was 3.3 today, yesterday's SCr level was 2.7 No acute indication for HD today, will monitor daily and write for HD if needed Assess need for HD on daily basis Start on Lasix 40 mg IV twice a day Renally dose medications Hgb level was 6.5 today, 2 units of PRBCs ordered today Obtain daily weight Strict intake and output- will try condom cath for measurement of urine output Renal plan discussed with Dr Marin Continue supportive therapy (3) Acute respiratory failure Current Visit: Yes Status: Acute Qualifiers: Respiratory failure complication: hypoxia Qualified Code(s): J96.01 - Acute respiratory failure with hypoxia Plan to address problem: Pulmonology on board, vent management, follow up recs (4) Hypocalcemia Current Visit: Yes Status: Acute Plan to address problem: Orderd calcium gluconate 2 g IVPB x 1 dose today (5) Anemia Current Visit: Yes Status: Acute Qualifiers: Anemia type: unspecified type Iron deficiency anemia type: I Vitamin B12 deficiency anemia type: V Folate deficiency anemia type: F Bone marrow failure anemia type: B Hemolytic anemia type: H Other causes of anemia: O Qualified Code(s): D64.9 - Anemia, unspecified Plan to address problem: Ordered to receive 2 units of PRBCs today, hematology on board, follow up recs (6) Atrial fibrillation Current Visit: Yes Status: Acute Qualifiers: Atrial fibrillation type: A Plan to address problem: As per Cardiology, discontinued amiodarone, follow up recs Subjective Date of service: 10/24/16 Principal diagnosis: Sepsis Syndrome; MAHA; RAJESH; CHF; TTP Interval history: Patient intubated on ventilator, doesn't follow commands. Patient about to undergo plasmapheresis today. No family at bedside Objective - Vital Signs Vital signs: Vital Signs - 12hr 10/24/16 10/24/16 10/24/16 01:46 02:00 02:16 Temperature Pulse Rate 92 H 93 H 91 H Respiratory 26 H 26 H 25 H Rate Blood Pressure 124/75 124/75 124/75 O2 Sat by Pulse 98 97 98 Oximetry 10/24/16 10/24/16 10/24/16 02:30 02:46 03:00 Temperature Pulse Rate 93 H 93 H 93 H Respiratory 26 H 26 H 26 H Rate Blood Pressure 124/75 124/75 116/72 O2 Sat by Pulse 98 98 99 Oximetry 10/24/16 10/24/16 10/24/16 03:12 03:16 03:30 Temperature Pulse Rate 91 H 91 H 90 Respiratory 25 H 19 Rate Blood Pressure 116/72 116/72 116/72 O2 Sat by Pulse 98 98 98 Oximetry 10/24/16 10/24/16 10/24/16 03:46 03:56 04:00 Temperature 100.5 F H Pulse Rate 97 H 91 H Respiratory 13 23 Rate Blood Pressure 116/72 116/72 O2 Sat by Pulse 97 98 Oximetry 10/24/16 10/24/16 10/24/16 04:16 04:30 04:46 Temperature Pulse Rate 91 H 92 H 94 H Respiratory 23 24 26 H Rate Blood Pressure 116/72 122/73 122/73 O2 Sat by Pulse 98 98 98 Oximetry 10/24/16 10/24/16 10/24/16 05:00 05:16 05:30 Temperature Pulse Rate 88 93 H 91 H Respiratory 14 24 17 Rate Blood Pressure 122/73 122/73 122/73 O2 Sat by Pulse 98 97 98 Oximetry 10/24/16 10/24/16 10/24/16 05:46 06:00 06:16 Temperature Pulse Rate 91 H 95 H 89 Respiratory 16 11 L 0 L Rate Blood Pressure 122/73 122/80 122/80 O2 Sat by Pulse 98 99 98 Oximetry 10/24/16 10/24/16 10/24/16 06:30 06:46 07:00 Temperature Pulse Rate 92 H 93 H 92 H Respiratory 19 24 20 Rate Blood Pressure 122/80 122/80 122/80 O2 Sat by Pulse 97 98 98 Oximetry 10/24/16 10/24/16 10/24/16 07:16 07:30 07:41 Temperature Pulse Rate 92 H 91 H 90 Respiratory 16 17 Rate Blood Pressure 122/80 117/73 117/73 O2 Sat by Pulse 98 98 100 Oximetry 10/24/16 10/24/16 10/24/16 07:44 07:45 07:46 Temperature 99.6 F Pulse Rate 91 H 88 Respiratory 24 0 L Rate Blood Pressure 117/73 117/73 O2 Sat by Pulse 98 97 Oximetry 10/24/16 10/24/16 10/24/16 08:00 08:16 08:30 Temperature Pulse Rate 90 89 90 Respiratory 25 H 21 24 Rate Blood Pressure 117/73 117/73 117/73 O2 Sat by Pulse 97 97 98 Oximetry 10/24/16 10/24/16 10/24/16 08:46 09:00 09:16 Temperature Pulse Rate 89 90 87 Respiratory 21 23 20 Rate Blood Pressure 117/73 121/76 121/76 O2 Sat by Pulse 97 98 97 Oximetry 10/24/16 10/24/16 10/24/16 09:30 09:46 10:00 Temperature Pulse Rate 91 H 92 H 90 Respiratory 22 23 24 Rate Blood Pressure 121/76 121/76 121/76 O2 Sat by Pulse 97 99 97 Oximetry 10/24/16 10/24/16 10/24/16 10:16 10:30 10:46 Temperature Pulse Rate 88 92 H 88 Respiratory 22 26 H 12 Rate Blood Pressure 121/76 129/77 129/77 O2 Sat by Pulse 98 97 96 Oximetry 10/24/16 10/24/16 10/24/16 10:56 11:00 11:16 Temperature Pulse Rate 91 H 90 Respiratory 11 L 22 13 Rate Blood Pressure 129/77 129/77 O2 Sat by Pulse 96 96 Oximetry 10/24/16 10/24/16 10/24/16 11:26 11:30 11:45 Temperature Pulse Rate 91 H 92 H 89 Respiratory 24 17 24 Rate Blood Pressure 129/77 138/90 135/82 O2 Sat by Pulse 98 97 98 Oximetry 10/24/16 12:00 Temperature 98.7 F Pulse Rate 91 H Respiratory 25 H Rate Blood Pressure 141/87 O2 Sat by Pulse 96 Oximetry - General Appearance General appearance: intubated (on ventilator) EENT: ATNC Neck: no JVD Respiratory: Present: Other (Lung sounds decreased bilaterally, intubated) Cardiology: regular, S1S2, other (ACCESS: Right Vas Catheter intact) Gastrointestinal: normoactive bowel sounds (Dobhoff tube intact) Integumentary: ulcer (right hand skin wound noted; left arm skin wound with dressing in place, bilateral lower extremity skin wounds with dressing in place) Neurologic: other (intubated on ventilator, doesn't follow commands) Musculoskeletal: other (1+ edema to both lower extremities) - Lab 10/24/16 07:00 10/24/16 07:00 Most recent lab results Calcium 6.6 mg/dL (8.4-10.2) L 10/24/16 07:00 Phosphorus 6.30 mg/dL (2.5-4.5) H 10/19/16 06:00
[2016-10-24] MEDS: LASIX IV SCH (17:37)
[2016-10-24] MEDS: NORMODYNE IV PRN (23:26)
--- NOTE | 2016-10-25 00:10 | Consultation ---
History of Present Illness - Reason for Consult Consult date: 10/25/16 - History of Present Illness patient seen/examined, case reviewed, case d/w his family. he received #7of 10 plasmaphoresis today, plt better. he also received PRBC today.Pulm he is not doing better. Past History Past Medical History: hypertension, other (Had shingles in November 25-) Past Surgical History: No surgical history Social history: , full code, other (Patienti s and lives with his ). denies: smoking, alcohol abuse, prescription drug abuse, IV drug use Family history: no significant family history Medications and Allergies Allergies Allergy/AdvReac Type Severity Reaction Status Date / Time No Known Allergies Allergy Unverified 10/13/16 09:41 Home Medications Medication Instructions Recorded Confirmed Last Taken Type Naproxen Sodium [Aleve TAB] 2 tab PO Q8H PRN 10/13/16 10/13/16 10/12/16 14:00 History Active Meds: Active Medications Acetaminophen (Tylenol) 1,000 mg AR Q4H PRN PRN Reason: Pain, Mild (1-3) Last Admin: 10/20/16 15:40 Dose: 1,000 mg Acetaminophen (Tylenol) 650 mg FEEDTUBE Q6H PRN PRN Reason: Pain, Mild (1-3) Last Admin: 10/24/16 10:56 Dose: 650 mg Lipase/Protease/Amylase (Pancreaze Dr 10,500 Unit) 1 each FEEDTUBE PRN PRN PRN Reason: For Clogged Feeding Tube Dextrose (D50w (25gm)) 25 ml IV PRN PRN PRN Reason: Hypoglycemia Last Admin: 10/18/16 07:20 Dose: 25 ml Diphenhydramine HCl (Benadryl) 50 mg IV Q6H PRN PRN Reason: Itching Last Admin: 10/24/16 10:57 Dose: 50 mg Famotidine (Pepcid) 20 mg PO Q24H EDWINA Last Admin: 10/24/16 09:37 Dose: 20 mg Furosemide (Lasix) 40 mg IV 0600,1800 EDWINA Last Admin: 10/24/16 17:37 Dose: 40 mg Haloperidol Lactate (Haldol) 5 mg IM Q6H PRN PRN Reason: Agitation Last Admin: 10/14/16 21:11 Dose: 5 mg Heparin Sodium (Porcine) (Heparin) 10,000 unit IV ROD PRN PRN Reason: for plasmapheresis- vascath Last Admin: 10/20/16 13:05 Dose: 10,000 unit Hydrocortisone Sodium Succinate (Solu-Cortef) 60 mg IV Q6HR EDWINA Last Admin: 10/24/16 23:26 Dose: 60 mg Hydrophilic Ointment (Vaseline Lip Therapy) 1 applic TP Q2H PRN PRN Reason: Dry Lips Sodium Chloride (Nacl 0.9%) 100 mls @ 999 mls/hr IV ROD PRN PRN Reason: Hypotension Norepinephrine (Levophed Drip 4 Mg/Ns 250 Ml) 4 mg in 250 mls @ 7.5 mls/hr IV TITR EDWINA; 2 MCG/MIN PRN Reason: Protocol Last Admin: 10/19/16 18:56 Dose: 4 mcg/min, 15 mls/hr Propofol (Diprivan 10 Mg/Ml) 1,000 mg in 100 mls @ 1.827 mls/hr IV TITR EDWINA; 5 MCG/KG/MIN PRN Reason: Protocol Last Titration: 10/20/16 10:12 Dose: 0 mcg/kg/min, 0 mls/hr Fentanyl Citrate (Fentanyl Drip Premix) 2,000 mcg in 100 mls @ 3.045 mls/hr IV TITR EDWINA; 1 MCG/KG/HR PRN Reason: Protocol Sodium Chloride (Nacl 0.9%) 100 mls @ 999 mls/hr IV ROD PRN PRN Reason: Hypotension Insulin Aspart (Novolog) 0 units SUB-Q Q6HR EDWINA PRN Reason: Protocol Last Admin: 10/24/16 18:20 Dose: Not Given Labetalol HCl (Normodyne) 20 mg IV Q6H PRN PRN Reason: Hypertension Last Admin: 10/24/16 23:26 Dose: 20 mg Multi-Ingred Cream/Lotion/Oil/Oint (Artificial Tears Ophth Oint) 1 applic OU Q4H PRN PRN Reason: Dry Eye(s) Ondansetron HCl (Zofran) 4 mg IV Q8H PRN PRN Reason: Nausea And Vomiting Simple Syrup (Simple Syrup) 15 ml FEEDTUBE PRN PRN PRN Reason: Hypoglycemia Simple Syrup (Simple Syrup) 30 ml FEEDTUBE PRN PRN PRN Reason: Hypoglycemia Sodium Bicarbonate (Sodium Bicarbonate) 325 mg FEEDTUBE PRN PRN PRN Reason: For Clogged Feeding Tube Sodium Chloride (Sodium Chloride Flush Syringe 10 Ml) 10 ml IV PRN PRN PRN Reason: LINE FLUSH Last Admin: 10/17/16 20:45 Dose: 10 ml Vancomycin HCl (Vancomycin Pharmacy To Dose) 1 each IV PKCONSULT EDWINA PRN Reason: Protocol Review of Systems Constitutional: other (on the vent.) Exam - Constitutional Vitals: Temp Pulse Resp BP Pulse Ox 99 F 82 22 173/103 100 10/24/16 23:44 10/24/16 23:26 10/24/16 18:30 10/24/16 23:26 10/24/16 23:13 General appearance: Present: severe distress, well-nourished - EENT Eyes: Present: PERRL ENT: hearing intact, clear oral mucosa - Neck Neck: Present: supple, normal ROM - Respiratory Respiratory: negative: other (on the vent.) - Cardiovascular Heart Sounds: Present: S1 & S2. Absent: rub, click - Extremities Extremities: pulses symmetrical, No edema Peripheral Pulses: within normal limits - Abdominal General gastrointestinal: Present: soft, non-tender, non-distended, normal bowel sounds Male genitourinary: Present: deferred - Rectal Rectal Exam: deferred - Integumentary Integumentary: Present: clear, warm, dry Results - Labs CBC & Chem 7: 10/24/16 07:00 10/24/16 07:00 Labs: Abnormal lab results 10/24/16 10/24/16 10/24/16 Range/Units 00:12 05:16 07:00 WBC 17.9 H (4.5-11.0) K/mm3 RBC 2.12 L (3.65-5.03) M/mm3 Hgb 6.5 L (11.8-15.2) gm/dl Hct 19.9 L* (35.5-45.6) % RDW 19.3 H (13.2-15.2) % Plt Count 44 L (140-440) K/mm3 Chloride (98-107) mmol/L BUN (9-20) mg/dL Creatinine (0.8-1.5) mg/dL Glucose (75-100) mg/dL POC Glucose 116 H 135 H (70-105) Lactic Acid (0.7-2.0) mmol/L Calcium (8.4-10.2) mg/dL Total Bilirubin (0.1-1.2) mg/dL AST (5-40) units/L Alkaline Phosphatase (35-129) units/L C-Reactive Protein (0.00-1.30) mg/dL Total Protein (6.3-8.2) g/dL Albumin (3.9-5) g/dL Crossmatch 10/24/16 10/24/16 10/24/16 Range/Units 07:00 11:45 12:12 WBC (4.5-11.0) K/mm3 RBC (3.65-5.03) M/mm3 Hgb (11.8-15.2) gm/dl Hct (35.5-45.6) % RDW (13.2-15.2) % Plt Count (140-440) K/mm3 Chloride 92.9 L (98-107) mmol/L BUN 74 H (9-20) mg/dL Creatinine 3.3 H (0.8-1.5) mg/dL Glucose 136 H (75-100) mg/dL POC Glucose 177 H (70-105) Lactic Acid (0.7-2.0) mmol/L Calcium 6.6 L (8.4-10.2) mg/dL Total Bilirubin 2.10 H (0.1-1.2) mg/dL AST 68 H (5-40) units/L Alkaline Phosphatase 224 H (35-129) units/L C-Reactive Protein (0.00-1.30) mg/dL Total Protein 4.8 L (6.3-8.2) g/dL Albumin 2.3 L (3.9-5) g/dL Crossmatch See Detail 10/24/16 10/24/16 10/24/16 Range/Units 16:30 16:30 17:28 WBC (4.5-11.0) K/mm3 RBC (3.65-5.03) M/mm3 Hgb (11.8-15.2) gm/dl Hct (35.5-45.6) % RDW (13.2-15.2) % Plt Count (140-440) K/mm3 Chloride (98-107) mmol/L BUN (9-20) mg/dL Creatinine (0.8-1.5) mg/dL Glucose (75-100) mg/dL POC Glucose 128 H (70-105) Lactic Acid 3.00 H* (0.7-2.0) mmol/L Calcium (8.4-10.2) mg/dL Total Bilirubin (0.1-1.2) mg/dL AST (5-40) units/L Alkaline Phosphatase (35-129) units/L C-Reactive Protein 7.40 H (0.00-1.30) mg/dL Total Protein (6.3-8.2) g/dL Albumin (3.9-5) g/dL Crossmatch 10/24/16 10/24/16 Range/Units 18:40 23:32 WBC (4.5-11.0) K/mm3 RBC (3.65-5.03) M/mm3 Hgb (11.8-15.2) gm/dl Hct (35.5-45.6) % RDW (13.2-15.2) % Plt Count (140-440) K/mm3 Chloride (98-107) mmol/L BUN (9-20) mg/dL Creatinine (0.8-1.5) mg/dL Glucose (75-100) mg/dL POC Glucose 140 H (70-105) Lactic Acid 3.10 H* (0.7-2.0) mmol/L Calcium (8.4-10.2) mg/dL Total Bilirubin (0.1-1.2) mg/dL AST (5-40) units/L Alkaline Phosphatase (35-129) units/L C-Reactive Protein (0.00-1.30) mg/dL Total Protein (6.3-8.2) g/dL Albumin (3.9-5) g/dL Crossmatch Assessment and Plan - Patient Problems (1) Anemia Current Visit: Yes Status: Acute Qualifiers: Anemia type: unspecified type Iron deficiency anemia type: I Vitamin B12 deficiency anemia type: V Folate deficiency anemia type: F Bone marrow failure anemia type: B Hemolytic anemia type: H Other causes of anemia: O Qualified Code(s): D64.9 - Anemia, unspecified Plan to address problem: For now, he is getting replacement transfusion. see further w/up. see notes He is getting plasma exchange. (2) Leucopenia Current Visit: Yes Status: Acute Qualifiers: Leukopenia type: unspecified Neutropenia type: N Qualified Code(s): D72.819 - Decreased white blood cell count, unspecified Plan to address problem: same as above. (3) Renal failure Current Visit: Yes Status: Acute Qualifiers: Renal failure chronicity: acute Acute renal failure type: unspecified Chronic kidney disease stage: C Qualified Code(s): N17.9 - Acute kidney failure, unspecified Plan to address problem: See w/up, and renal service. see notes
[2016-10-25] MEDS: LASIX IV SCH ×2 (05:19→18:20)
[2016-10-25] MEDS: NOVOLOG SUB-Q SCH ×4 (05:32→18:20)
[2016-10-25] MEDS: NORMODYNE IV PRN (05:33)
[2016-10-25 06:00] LABS: Hematocrit 26.9 % (35.5-45.6); Hemoglobin 9.1 gm/dl (11.8-15.2); Mean Corpuscular HGB Conc 34 % (32-34); Mean Corpuscular Hemoglobin 30 pg (28-32); Mean Corpuscular Volume 90 fl (84-94); Red Blood Count 2.99 M/mm3 (3.65-5.03); Red Cell Distribution Width 17.7 % (13.2-15.2); White Blood Count 17.5 K/mm3 (4.5-11.0)
[2016-10-25 06:01] LABS: Platelet Count 53 K/mm3 (140-440)
[2016-10-25 06:18] LABS: BUN/Creatinine Ratio 22.82; Calcium 6.9 mg/dL (8.4-10.2); Chloride 91.6 mmol/L (98-107); Potassium 3.9 mmol/L (3.6-5.0)
--- NOTE | 2016-10-25 10:00 | Progress Note ---
Assessment and Plan (1) Thrombocytopenia Current Visit: Yes Status: Acute Plan to address problem: Hematology on board, possible TTP, on plasmapheresis , follow up Hematology recs (2) Acute renal failure Current Visit: Yes Status: Acute Qualifiers: Acute renal failure type: A Plan to address problem: Cr and BUN cont to rrise, oliguric HD today for clearance and volume removal Assess need for HD on daily basis Renally dose medications Obtain daily weight Strict intake and output (3) Acute respiratory failure Current Visit: Yes Status: Acute Qualifiers: Respiratory failure complication: hypoxia Qualified Code(s): J96.01 - Acute respiratory failure with hypoxia Plan to address problem: Pulmonology on board, vent management, follow up recs (4) Hypocalcemia Current Visit: Yes Status: Acute Plan to address problem: high calcium bath with HD (5) Anemia Current Visit: Yes Status: Acute Qualifiers: Anemia type: unspecified type Iron deficiency anemia type: I Vitamin B12 deficiency anemia type: V Folate deficiency anemia type: F Bone marrow failure anemia type: B Hemolytic anemia type: H Other causes of anemia: O Qualified Code(s): D64.9 - Anemia, unspecified Plan to address problem: transfuse as needed (6) Atrial fibrillation Current Visit: Yes Status: Acute Qualifiers: Atrial fibrillation type: A Plan to address problem: As per Cardiology, follow up recs Subjective Date of service: 10/25/16 Principal diagnosis: Sepsis Syndrome; MAHA; RAJESH; CHF; TTP Interval history: intubated, does not follow commands Objective - Vital Signs Vital signs: Vital Signs - 12hr 10/24/16 10/24/16 10/24/16 22:00 22:16 22:30 Temperature Pulse Rate 81 80 81 Pulse Rate [ From Monitor] Respiratory 15 19 16 Rate Blood Pressure 156/99 156/99 156/99 O2 Sat by Pulse 99 100 100 Oximetry 10/24/16 10/24/16 10/24/16 22:46 23:00 23:13 Temperature Pulse Rate 81 81 84 Pulse Rate [ From Monitor] Respiratory 17 18 Rate Blood Pressure 156/99 165/100 165/100 O2 Sat by Pulse 100 100 100 Oximetry 10/24/16 10/24/16 10/24/16 23:16 23:26 23:30 Temperature Pulse Rate 82 82 76 Pulse Rate [ From Monitor] Respiratory 19 9 L Rate Blood Pressure 173/103 173/103 173/103 O2 Sat by Pulse 100 98 Oximetry 10/24/16 10/24/16 10/25/16 23:44 23:46 00:00 Temperature 99 F Pulse Rate 74 74 Pulse Rate [ 87 From Monitor] Respiratory 0 L 8 L Rate Blood Pressure 173/103 146/87 O2 Sat by Pulse 99 99 Oximetry 10/25/16 10/25/16 10/25/16 00:16 00:30 00:46 Temperature Pulse Rate 76 76 76 Pulse Rate [ From Monitor] Respiratory 15 15 16 Rate Blood Pressure 146/87 173/103 173/103 O2 Sat by Pulse 100 100 100 Oximetry 10/25/16 10/25/16 10/25/16 01:00 01:16 01:30 Temperature Pulse Rate 75 75 76 Pulse Rate [ From Monitor] Respiratory 18 20 16 Rate Blood Pressure 148/85 148/85 148/85 O2 Sat by Pulse 100 100 100 Oximetry 10/25/16 10/25/16 10/25/16 01:46 02:00 02:16 Temperature Pulse Rate 76 76 76 Pulse Rate [ From Monitor] Respiratory 16 19 21 Rate Blood Pressure 148/85 146/84 146/84 O2 Sat by Pulse 100 100 100 Oximetry 10/25/16 10/25/16 10/25/16 02:30 02:46 03:00 Temperature Pulse Rate 76 77 79 Pulse Rate [ From Monitor] Respiratory 19 21 13 Rate Blood Pressure 146/84 146/84 163/95 O2 Sat by Pulse 100 100 99 Oximetry 10/25/16 10/25/16 10/25/16 03:16 03:30 03:33 Temperature 98.6 F Pulse Rate 76 79 Pulse Rate [ From Monitor] Respiratory 18 17 Rate Blood Pressure 163/95 163/95 O2 Sat by Pulse 100 99 Oximetry 10/25/16 10/25/16 10/25/16 03:34 03:46 04:00 Temperature 97.4 F L Pulse Rate 76 78 Pulse Rate [ 78 From Monitor] Respiratory 18 16 Rate Blood Pressure 163/95 172/94 O2 Sat by Pulse 98 97 Oximetry 10/25/16 10/25/16 10/25/16 04:16 04:30 04:46 Temperature Pulse Rate 77 80 80 Pulse Rate [ From Monitor] Respiratory 19 17 17 Rate Blood Pressure 172/94 172/94 172/94 O2 Sat by Pulse 99 99 99 Oximetry 10/25/16 10/25/16 10/25/16 05:00 05:16 05:30 Temperature Pulse Rate 77 79 75 Pulse Rate [ From Monitor] Respiratory 18 19 18 Rate Blood Pressure 151/93 151/93 151/93 O2 Sat by Pulse 99 99 Oximetry 10/25/16 10/25/16 10/25/16 05:33 05:46 06:00 Temperature Pulse Rate 78 72 73 Pulse Rate [ From Monitor] Respiratory 21 19 Rate Blood Pressure 151/93 151/93 133/85 O2 Sat by Pulse 99 96 Oximetry 10/25/16 10/25/16 08:00 08:25 Temperature 97.5 F L Pulse Rate 74 Pulse Rate [ From Monitor] Respiratory 19 Rate Blood Pressure 133/84 O2 Sat by Pulse 98 Oximetry - General Appearance General appearance: intubated EENT: ATNC, PERRL, mucous membranes dry Neck: no JVD, no carotid bruit Respiratory: Present: Clear to Ascultation Cardiology: irregularly irregular Gastrointestinal: normoactive bowel sounds Integumentary: no rash, warm and dry Neurologic: other (does not follow commands) Musculoskeletal: other (1-2+ pitting edema in BLE) Psychiatric: other (intubated) - Lab 10/25/16 05:00 10/25/16 05:00 Most recent lab results Calcium 6.9 mg/dL (8.4-10.2) L 10/25/16 05:00 Phosphorus 6.30 mg/dL (2.5-4.5) H 10/19/16 06:00
[2016-10-25] MEDS: PEPCID PO SCH (10:11)
--- NOTE | 2016-10-25 10:59 | Progress Note ---
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 Acute respiratory failure - intubated. Sepsis / beta hemolitic strep bacterimia / leukocytosis Paroxysmal atrial fibrillation with variable ventricular response --> SR Acute metabolic encephalopathy ARF on CKD - requiring HD Profound metabolic acidemia/lactic acidosis Anemia / thrombocytopenia - on plasmapheresis. Hypocalcemia Plan: Amio d/c'd in setting of elevated LFTs. Initiate lopressor, 25mg PO BID. Hold for HR <60 and SBP <100. Given anemia and thrombocytopenia, defer systemic anticoagulation for now. Second blood culture with no growth. However, will consider JONATHAN once medically stabilized per ID request. Consider ischemic evaluation when medically stabilized. No ACEI/ARB in setting of ARF on CKD. Watch volume status closely Poor prognosis. The patient has been seen in conjunction with Dr. Parikh who agrees with the assessment and plan of care. Subjective Date of service: 10/25/16 Principal diagnosis: Sepsis Syndrome; MAHA; RAJESH; CHF; TTP Interval history: Pt remains intubated, nonresponsive. Remains in SR. No family at bedside. Off pressors, hypertensive. Objective Last Vital Signs Temp 97.5 F L 10/25/16 08:00 Pulse 74 10/25/16 08:25 Resp 19 10/25/16 08:25 BP 133/84 10/25/16 08:25 Pulse Ox 98 10/25/16 08:25 - Physical Examination General: Other (intubated; nonresponsive ) HEENT: Positive: Jaundice Neck: Positive: neck supple, trachea midline. Negative: JVD/HJR Cardiac: Positive: Reg Rate and Rhythm Lungs: Positive: Decreased Breath Sounds, Ventilated Respirations Neuro: Positive: Other (intubated; nonresponsive ) Abdomen: Positive: Soft, Active Bowel Sounds Skin: Positive: Clear. Negative: Rash, Wound Musculoskeletal: No Fluid Collection, No Pain, Normal Range of Motion Extremities: Present: upper extr. pulses, lower extr. pulses. Absent: edema - Labs and Meds CBC 10/25/16 Range/Units 05:00 WBC 17.5 H (4.5-11.0) K/mm3 RBC 2.99 L (3.65-5.03) M/mm3 Hgb 9.1 L (11.8-15.2) gm/dl Hct 26.9 L D (35.5-45.6) % Plt Count 53 L (140-440) K/mm3 Comprehensive Metabolic Panel 10/25/16 Range/Units 05:00 Sodium 139 (137-145) mmol/L Potassium 3.9 (3.6-5.0) mmol/L Chloride 91.6 L (98-107) mmol/L Carbon Dioxide 25 (22-30) mmol/L BUN 89 H (9-20) mg/dL Creatinine 3.9 H (0.8-1.5) mg/dL Glucose 150 H (75-100) mg/dL Calcium 6.9 L (8.4-10.2) mg/dL - Imaging and Cardiology EKG: report reviewed, image reviewed Echo: report reviewed - Telemetry EKG Rhythm: Sinus Rhythm - Allied health notes Allied health notes reviewed: RT
--- NOTE | 2016-10-25 12:13 | Progress Note ---
Assessment and Plan Patient is a 61-year-old man with no significant past medical history who presented to the emergency department [facility] 10/13/16, complaining of bilateral leg swelling that worsened for the last 4 days. He was found to have severe metabolic acidosis, creatinine was 14.5 with hyperkalemia, emergent Hemodialysis was set up. He was found to have severe pancytopenia and thrombocytopenia. Dr. 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 He was on bipap and was intubated 10/16/16, details are not readily available on why he needed to be intubated, no nursing note for . -Acute encephalopathy, not sedated, will consult Neurology. 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, HUS, Amyloidosis -Acute systolic congestive heart failure EF around 30% -SEVERE SEPSIS, poa Subjective Date of service: 10/25/16 Principal diagnosis: Sepsis Syndrome; MAHA; RAJESH; CHF; TTP Interval history: Still intubated Objective - Constitutional Vitals: Vital Signs - 12hr 10/25/16 10/25/16 10/25/16 00:16 00:30 00:46 Temperature Pulse Rate 76 76 76 Pulse Rate [ From Monitor] Respiratory 15 15 16 Rate Blood Pressure 146/87 173/103 173/103 O2 Sat by Pulse 100 100 100 Oximetry 10/25/16 10/25/16 10/25/16 01:00 01:16 01:30 Temperature Pulse Rate 75 75 76 Pulse Rate [ From Monitor] Respiratory 18 20 16 Rate Blood Pressure 148/85 148/85 148/85 O2 Sat by Pulse 100 100 100 Oximetry 10/25/16 10/25/16 10/25/16 01:46 02:00 02:16 Temperature Pulse Rate 76 76 76 Pulse Rate [ From Monitor] Respiratory 16 19 21 Rate Blood Pressure 148/85 146/84 146/84 O2 Sat by Pulse 100 100 100 Oximetry 10/25/16 10/25/16 10/25/16 02:30 02:46 03:00 Temperature Pulse Rate 76 77 79 Pulse Rate [ From Monitor] Respiratory 19 21 13 Rate Blood Pressure 146/84 146/84 163/95 O2 Sat by Pulse 100 100 99 Oximetry 10/25/16 10/25/16 10/25/16 03:16 03:30 03:33 Temperature 98.6 F Pulse Rate 76 79 Pulse Rate [ From Monitor] Respiratory 18 17 Rate Blood Pressure 163/95 163/95 O2 Sat by Pulse 100 99 Oximetry 10/25/16 10/25/16 10/25/16 03:34 03:46 04:00 Temperature 97.4 F L Pulse Rate 76 78 Pulse Rate [ 78 From Monitor] Respiratory 18 16 Rate Blood Pressure 163/95 172/94 O2 Sat by Pulse 98 97 Oximetry 10/25/16 10/25/16 10/25/16 04:16 04:30 04:46 Temperature Pulse Rate 77 80 80 Pulse Rate [ From Monitor] Respiratory 19 17 17 Rate Blood Pressure 172/94 172/94 172/94 O2 Sat by Pulse 99 99 99 Oximetry 10/25/16 10/25/16 10/25/16 05:00 05:16 05:30 Temperature Pulse Rate 77 79 75 Pulse Rate [ From Monitor] Respiratory 18 19 18 Rate Blood Pressure 151/93 151/93 151/93 O2 Sat by Pulse 99 99 Oximetry 10/25/16 10/25/16 10/25/16 05:33 05:46 06:00 Temperature Pulse Rate 78 72 73 Pulse Rate [ From Monitor] Respiratory 21 19 Rate Blood Pressure 151/93 151/93 133/85 O2 Sat by Pulse 99 96 Oximetry 10/25/16 10/25/16 10/25/16 06:16 06:30 06:46 Temperature Pulse Rate 72 74 72 Pulse Rate [ From Monitor] Respiratory 21 20 18 Rate Blood Pressure 133/85 133/85 133/85 O2 Sat by Pulse 98 98 99 Oximetry 10/25/16 10/25/16 10/25/16 07:00 07:16 07:30 Temperature Pulse Rate 74 72 73 Pulse Rate [ From Monitor] Respiratory 20 18 17 Rate Blood Pressure 144/86 144/86 144/86 O2 Sat by Pulse 96 98 98 Oximetry 10/25/16 10/25/16 10/25/16 07:46 08:00 08:16 Temperature 97.5 F L Pulse Rate 74 73 75 Pulse Rate [ 73 From Monitor] Respiratory 18 17 20 Rate Blood Pressure 144/86 133/84 133/84 O2 Sat by Pulse 98 96 98 Oximetry 10/25/16 10/25/16 10/25/16 08:25 08:30 08:46 Temperature Pulse Rate 74 76 74 Pulse Rate [ From Monitor] Respiratory 19 20 18 Rate Blood Pressure 133/84 133/84 133/84 O2 Sat by Pulse 98 98 99 Oximetry 10/25/16 10/25/16 10/25/16 09:00 09:16 09:30 Temperature Pulse Rate 77 72 76 Pulse Rate [ From Monitor] Respiratory 20 14 15 Rate Blood Pressure 180/108 180/108 180/108 O2 Sat by Pulse 95 99 97 Oximetry 10/25/16 10/25/16 10/25/16 09:46 10:00 10:16 Temperature Pulse Rate 77 74 78 Pulse Rate [ From Monitor] Respiratory 17 13 17 Rate Blood Pressure 180/108 138/84 138/84 O2 Sat by Pulse 99 96 98 Oximetry 10/25/16 10/25/16 10/25/16 10:30 10:46 11:00 Temperature Pulse Rate 77 77 76 Pulse Rate [ From Monitor] Respiratory 18 17 16 Rate Blood Pressure 138/84 138/84 145/89 O2 Sat by Pulse 98 98 95 Oximetry 10/25/16 10/25/16 10/25/16 11:10 11:15 11:30 Temperature 98.0 F Pulse Rate 77 77 75 Pulse Rate [ From Monitor] Respiratory 15 Rate Blood Pressure 146/89 148/91 135/88 O2 Sat by Pulse Oximetry 10/25/16 10/25/16 10/25/16 11:45 11:52 11:55 Temperature Pulse Rate 75 75 76 Pulse Rate [ From Monitor] Respiratory 15 Rate Blood Pressure 130/82 130/82 124/81 O2 Sat by Pulse 95 Oximetry General appearance: Present: no acute distress, well-nourished - EENT Eyes: PERRL ENT: other (remains intubated) - Neck Neck: supple, normal ROM - Respiratory Respiratory effort: normal Respiratory: bilateral: diminished - Cardiovascular Rhythm: regular Heart Sounds: Present: S1 & S2. Absent: gallop, rub Extremities: pulses intact, No edema, Full ROM - Gastrointestinal General gastrointestinal: Present: soft, non-tender, non-distended - Integumentary Integumentary: clear, warm, dry - Musculoskeletal Musculoskeletal: other (intubated on mechanical ventilatory support.) - Neurologic Neurologic: moves all extremities - Psychiatric Psychiatric: appropriate mood/affect - Labs CBC & Chem 7: 10/25/16 05:00 10/25/16 05:00 Labs: Abnormal lab results 10/24/16 10/24/16 10/24/16 Range/Units 11:45 12:12 16:30 WBC (4.5-11.0) K/mm3 RBC (3.65-5.03) M/mm3 Hgb (11.8-15.2) gm/dl Hct (35.5-45.6) % RDW (13.2-15.2) % Plt Count (140-440) K/mm3 Chloride (98-107) mmol/L BUN (9-20) mg/dL Creatinine (0.8-1.5) mg/dL Glucose (75-100) mg/dL POC Glucose 177 H (70-105) Lactic Acid 3.00 H* (0.7-2.0) mmol/L Calcium (8.4-10.2) mg/dL C-Reactive Protein (0.00-1.30) mg/dL Crossmatch See Detail 10/24/16 10/24/16 10/24/16 Range/Units 16:30 17:28 18:40 WBC (4.5-11.0) K/mm3 RBC (3.65-5.03) M/mm3 Hgb (11.8-15.2) gm/dl Hct (35.5-45.6) % RDW (13.2-15.2) % Plt Count (140-440) K/mm3 Chloride (98-107) mmol/L BUN (9-20) mg/dL Creatinine (0.8-1.5) mg/dL Glucose (75-100) mg/dL POC Glucose 128 H (70-105) Lactic Acid 3.10 H* (0.7-2.0) mmol/L Calcium (8.4-10.2) mg/dL C-Reactive Protein 7.40 H (0.00-1.30) mg/dL Crossmatch 10/24/16 10/25/16 10/25/16 Range/Units 23:32 05:00 05:00 WBC 17.5 H (4.5-11.0) K/mm3 RBC 2.99 L (3.65-5.03) M/mm3 Hgb 9.1 L (11.8-15.2) gm/dl Hct 26.9 L D (35.5-45.6) % RDW 17.7 H (13.2-15.2) % Plt Count 53 L (140-440) K/mm3 Chloride 91.6 L (98-107) mmol/L BUN 89 H (9-20) mg/dL Creatinine 3.9 H (0.8-1.5) mg/dL Glucose 150 H (75-100) mg/dL POC Glucose 140 H (70-105) Lactic Acid (0.7-2.0) mmol/L Calcium 6.9 L (8.4-10.2) mg/dL C-Reactive Protein (0.00-1.30) mg/dL Crossmatch 10/25/16 Range/Units 05:22 WBC (4.5-11.0) K/mm3 RBC (3.65-5.03) M/mm3 Hgb (11.8-15.2) gm/dl Hct (35.5-45.6) % RDW (13.2-15.2) % Plt Count (140-440) K/mm3 Chloride (98-107) mmol/L BUN (9-20) mg/dL Creatinine (0.8-1.5) mg/dL Glucose (75-100) mg/dL POC Glucose 164 H (70-105) Lactic Acid (0.7-2.0) mmol/L Calcium (8.4-10.2) mg/dL C-Reactive Protein (0.00-1.30) mg/dL Crossmatch
--- NOTE | 2016-10-25 13:30 | Progress Note ---
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) - continue HD/UF per nephrology recs - follow I's and O's (oliguric at this point) - correct electrolytes prn - avoid nephrotoxins - per nephrology otherwise (3) Metabolic acidosis Current Visit: Yes Status: Acute Plan to address problem: - mixed etiology - Lactic Acidosis component - sepsis may be driving force for that - RAJESH component - continue HD/UF per nephrology prescription - Anti-infectives per ID recs (4) CHF (congestive heart failure) Current Visit: Yes Status: Acute Qualifiers: Congestive heart failure type: C Congestive heart failure chronicity: C Plan to address problem: - ECHO consistent with possible infiltrating disease - cardiology consulted - EF 30& - s/p volume resuscitation for sepsis - per cardiology otherwise (5) Pancytopenia Current Visit: Yes Status: Acute Plan to address problem: - hematology on case - continuing plasmapheresis - may need bone marrow evaluation - platelet count tending slowly up now (6) Acute encephalopathy Current Visit: Yes Status: Acute Plan to address problem: - CT brain negative - likely toxic-metabolic encephalopathy - will need MRI - neurology consult placed - following clinically (7) Hypoglycemia Current Visit: Yes Status: Acute Plan to address problem: - improved - suspect sepsis related element - will continue systemic steroids but taper - also continue enteral nutrition - glycemic control via SSI at this point (8) Sepsis syndrome Current Visit: Yes Status: Acute Plan to address problem: - s/p antibiotic course - ID on case (9) Discharge planning issues Current Visit: Yes Status: Acute Plan to address problem: - he remains critically ill on life sustaining interventions including MVS and at risk for further deterioration including ...33' CCT Subjective Date of service: 10/25/16 Principal diagnosis: Sepsis Syndrome; MAHA; RAJESH; CHF; TTP Interval history: Seen and examined at bedside; 24 hour events reviewed; nursing and respiratory care staff consulted; no adverse overnight events reported to me; HD/UF ongoing ; remains on MVS; AMS is persistent; awaiting neurology evaluation; tolerating tube feeds well so far Objective Vital Signs - 12hr 10/25/16 10/25/16 10/25/16 01:46 02:00 02:16 Temperature Pulse Rate 76 76 76 Pulse Rate [ From Monitor] Respiratory 16 19 21 Rate Blood Pressure 148/85 146/84 146/84 O2 Sat by Pulse 100 100 100 Oximetry 10/25/16 10/25/16 10/25/16 02:30 02:46 03:00 Temperature Pulse Rate 76 77 79 Pulse Rate [ From Monitor] Respiratory 19 21 13 Rate Blood Pressure 146/84 146/84 163/95 O2 Sat by Pulse 100 100 99 Oximetry 10/25/16 10/25/16 10/25/16 03:16 03:30 03:33 Temperature 98.6 F Pulse Rate 76 79 Pulse Rate [ From Monitor] Respiratory 18 17 Rate Blood Pressure 163/95 163/95 O2 Sat by Pulse 100 99 Oximetry 10/25/16 10/25/16 10/25/16 03:34 03:46 04:00 Temperature 97.4 F L Pulse Rate 76 78 Pulse Rate [ 78 From Monitor] Respiratory 18 16 Rate Blood Pressure 163/95 172/94 O2 Sat by Pulse 98 97 Oximetry 10/25/16 10/25/16 10/25/16 04:16 04:30 04:46 Temperature Pulse Rate 77 80 80 Pulse Rate [ From Monitor] Respiratory 19 17 17 Rate Blood Pressure 172/94 172/94 172/94 O2 Sat by Pulse 99 99 99 Oximetry 10/25/16 10/25/16 10/25/16 05:00 05:16 05:30 Temperature Pulse Rate 77 79 75 Pulse Rate [ From Monitor] Respiratory 18 19 18 Rate Blood Pressure 151/93 151/93 151/93 O2 Sat by Pulse 99 99 Oximetry 10/25/16 10/25/16 10/25/16 05:33 05:46 06:00 Temperature Pulse Rate 78 72 73 Pulse Rate [ From Monitor] Respiratory 21 19 Rate Blood Pressure 151/93 151/93 133/85 O2 Sat by Pulse 99 96 Oximetry 10/25/16 10/25/16 10/25/16 06:16 06:30 06:46 Temperature Pulse Rate 72 74 72 Pulse Rate [ From Monitor] Respiratory 21 20 18 Rate Blood Pressure 133/85 133/85 133/85 O2 Sat by Pulse 98 98 99 Oximetry 10/25/16 10/25/16 10/25/16 07:00 07:16 07:30 Temperature Pulse Rate 74 72 73 Pulse Rate [ From Monitor] Respiratory 20 18 17 Rate Blood Pressure 144/86 144/86 144/86 O2 Sat by Pulse 96 98 98 Oximetry 10/25/16 10/25/16 10/25/16 07:46 08:00 08:16 Temperature 97.5 F L Pulse Rate 74 73 75 Pulse Rate [ 73 From Monitor] Respiratory 18 17 20 Rate Blood Pressure 144/86 133/84 133/84 O2 Sat by Pulse 98 96 98 Oximetry 10/25/16 10/25/16 10/25/16 08:25 08:30 08:46 Temperature Pulse Rate 74 76 74 Pulse Rate [ From Monitor] Respiratory 19 20 18 Rate Blood Pressure 133/84 133/84 133/84 O2 Sat by Pulse 98 98 99 Oximetry 10/25/16 10/25/16 10/25/16 09:00 09:16 09:30 Temperature Pulse Rate 77 72 76 Pulse Rate [ From Monitor] Respiratory 20 14 15 Rate Blood Pressure 180/108 180/108 180/108 O2 Sat by Pulse 95 99 97 Oximetry 10/25/16 10/25/16 10/25/16 09:46 10:00 10:16 Temperature Pulse Rate 77 74 78 Pulse Rate [ From Monitor] Respiratory 17 13 17 Rate Blood Pressure 180/108 138/84 138/84 O2 Sat by Pulse 99 96 98 Oximetry 10/25/16 10/25/16 10/25/16 10:30 10:46 11:00 Temperature Pulse Rate 77 77 76 Pulse Rate [ From Monitor] Respiratory 18 17 16 Rate Blood Pressure 138/84 138/84 145/89 O2 Sat by Pulse 98 98 95 Oximetry 10/25/16 10/25/16 10/25/16 11:10 11:15 11:30 Temperature 98.0 F Pulse Rate 77 77 75 Pulse Rate [ From Monitor] Respiratory 15 Rate Blood Pressure 146/89 148/91 135/88 O2 Sat by Pulse Oximetry 10/25/16 10/25/16 10/25/16 11:45 11:52 12:00 Temperature Pulse Rate 75 75 76 Pulse Rate [ From Monitor] Respiratory 15 Rate Blood Pressure 130/82 130/82 124/81 O2 Sat by Pulse 95 Oximetry 10/25/16 10/25/16 10/25/16 12:12 12:15 12:30 Temperature Pulse Rate 80 87 84 Pulse Rate [ From Monitor] Respiratory Rate Blood Pressure 145/95 149/94 150/99 O2 Sat by Pulse Oximetry 10/25/16 10/25/16 10/25/16 12:45 13:00 13:15 Temperature Pulse Rate 80 96 H 83 Pulse Rate [ From Monitor] Respiratory Rate Blood Pressure 135/94 135/94 135/92 O2 Sat by Pulse Oximetry Constitutional: no acute distress, lethargic Eyes: non-icteric ENT: oropharynx dry Neck: supple, no lymphadenopathy Effort: normal Ascultation: Bilateral: diminished breath sounds, rales Cardiovascular: irregular rhythm Gastrointestinal: normoactive bowel sounds, soft, non-distended Integumentary: erythema (ecchymosis/purpura) Extremities: no cyanosis, pulses normal, no ischemia or petechiae, edema Neurologic: non-focal exam (grossly), pupils equal and round, unable to assess Psychiatric: other (unable to assess) CBC and BMP: 10/26/16 06:15 10/26/16 04:00 ABG, PT/INR, D-dimer: ABG POC ABG pH 7.476 (7.35-7.45) H 10/23/16 04:47 POC ABG pCO2 37.4 (35-45) 10/23/16 04:47 POC ABG pO2 108 (80-105) H 10/23/16 04:47 POC ABG HCO3 27.6 10/23/16 04:47 POC ABG Total CO2 29 10/23/16 04:47 POC ABG O2 Sat 99 10/23/16 04:47 PT/INR, D-dimer PT 49.1 Sec. (12.2-14.9) H 10/21/16 11:25 INR 5.28 (0.87-1.13) H* 10/21/16 11:25 Abnormal lab findings: Abnormal Labs 10/13/16 10/13/16 10/13/16 14:50 21:40 22:05 WBC RBC Hgb Hct MCV MCHC RDW Plt Count Seg Neuts % (Manual) Lymphocytes % (Manual) Nucleated RBC % Seg Neutrophils # Man Lymphocytes # (Manual) Haptoglobin PT INR Fibrinogen Lupus Anticoagulant LA PTT Baseline POC ABG pH POC ABG pCO2 POC ABG pO2 Sodium Potassium Chloride Carbon Dioxide BUN Creatinine Glucose POC Glucose 52 L 43 L Lactic Acid Uric Acid Calcium Phosphorus Iron TIBC Erythropoietin Ferritin Total Bilirubin Direct Bilirubin AST ALT Alkaline Phosphatase Lactate Dehydrogenase C-Reactive Protein Serum Total Protein 5.6 L Total Protein Albumin 2.2 L Sikri-9-Tnejdtfag 0.5 H Abnorm Protein Band 1 1.4 H PEP Interpretation see below H Crossmatch 10/13/16 10/14/16 10/14/16 23:18 03:00 03:00 WBC RBC Hgb Hct MCV MCHC RDW Plt Count Seg Neuts % (Manual) Lymphocytes % (Manual) Nucleated RBC % Seg Neutrophils # Man Lymphocytes # (Manual) Haptoglobin PT INR Fibrinogen Lupus Anticoagulant see below H LA PTT Baseline 55 H POC ABG pH POC ABG pCO2 POC ABG pO2 Sodium Potassium Chloride Carbon Dioxide BUN Creatinine Glucose POC Glucose 113 H Lactic Acid Uric Acid Calcium Phosphorus Iron TIBC Erythropoietin Ferritin Total Bilirubin Direct Bilirubin AST ALT Alkaline Phosphatase Lactate Dehydrogenase 406 H C-Reactive Protein Serum Total Protein Total Protein Albumin Jrore-0-Lysewbstm Abnorm Protein Band 1 PEP Interpretation Crossmatch 10/14/16 10/14/16 10/14/16 03:00 03:00 04:34 WBC 1.3 L* RBC 2.33 L Hgb 7.3 L Hct 21.7 L MCV MCHC RDW 19.8 H Plt Count 99 L Seg Neuts % (Manual) Lymphocytes % (Manual) 3.0 L Nucleated RBC % Seg Neutrophils # Man 0.9 L Lymphocytes # (Manual) 0.0 L Haptoglobin PT INR Fibrinogen Lupus Anticoagulant LA PTT Baseline POC ABG pH POC ABG pCO2 POC ABG pO2 Sodium Potassium Chloride Carbon Dioxide 18 L BUN 73 H Creatinine 9.8 H Glucose 59 L POC Glucose Lactic Acid Uric Acid 8.0 H Calcium 8.2 L Phosphorus 6.60 H Iron 13 L TIBC 160 L Erythropoietin Ferritin Total Bilirubin Direct Bilirubin AST ALT Alkaline Phosphatase Lactate Dehydrogenase C-Reactive Protein Serum Total Protein Total Protein Albumin Xmejq-1-Wlvuspxae Abnorm Protein Band 1 PEP Interpretation Crossmatch 10/14/16 10/14/16 10/14/16 05:27 06:29 07:34 WBC RBC Hgb Hct MCV MCHC RDW Plt Count Seg Neuts % (Manual) Lymphocytes % (Manual) Nucleated RBC % Seg Neutrophils # Man Lymphocytes # (Manual) Haptoglobin PT INR Fibrinogen Lupus Anticoagulant LA PTT Baseline POC ABG pH POC ABG pCO2 POC ABG pO2 Sodium Potassium Chloride Carbon Dioxide BUN Creatinine Glucose POC Glucose < 40 L 63 L < 40 L Lactic Acid Uric Acid Calcium Phosphorus Iron TIBC Erythropoietin Ferritin Total Bilirubin Direct Bilirubin AST ALT Alkaline Phosphatase Lactate Dehydrogenase C-Reactive Protein Serum Total Protein Total Protein Albumin Vltau-9-Gkdlgkbzu Abnorm Protein Band 1 PEP Interpretation Crossmatch 10/14/16 10/14/16 10/14/16 09:58 09:58 09:58 WBC RBC Hgb Hct MCV MCHC RDW Plt Count Seg Neuts % (Manual) Lymphocytes % (Manual) Nucleated RBC % Seg Neutrophils # Man Lymphocytes # (Manual) Haptoglobin 218 H PT INR Fibrinogen 557 H Lupus Anticoagulant LA PTT Baseline POC ABG pH POC ABG pCO2 POC ABG pO2 Sodium Potassium Chloride Carbon Dioxide BUN Creatinine Glucose POC Glucose Lactic Acid Uric Acid Calcium Phosphorus Iron TIBC Erythropoietin Ferritin Total Bilirubin 1.30 H Direct Bilirubin 1.1 H AST ALT Alkaline Phosphatase Lactate Dehydrogenase C-Reactive Protein Serum Total Protein Total Protein Albumin Uhioy-2-Aalffdqhl Abnorm Protein Band 1 PEP Interpretation Crossmatch 10/14/16 10/14/16 10/14/16 10:57 11:15 12:52 WBC RBC Hgb Hct MCV MCHC RDW Plt Count Seg Neuts % (Manual) Lymphocytes % (Manual) Nucleated RBC % Seg Neutrophils # Man Lymphocytes # (Manual) Haptoglobin PT INR Fibrinogen Lupus Anticoagulant LA PTT Baseline POC ABG pH POC ABG pCO2 POC ABG pO2 Sodium Potassium Chloride Carbon Dioxide BUN Creatinine Glucose POC Glucose < 40 L < 40 L Lactic Acid 9.60 H* Uric Acid Calcium Phosphorus Iron TIBC Erythropoietin Ferritin Total Bilirubin Direct Bilirubin AST ALT Alkaline Phosphatase Lactate Dehydrogenase C-Reactive Protein Serum Total Protein Total Protein Albumin Nwprs-5-Yysocmksr Abnorm Protein Band 1 PEP Interpretation Crossmatch 10/14/16 10/14/16 10/14/16 12:52 13:17 14:12 WBC RBC Hgb Hct MCV MCHC RDW Plt Count Seg Neuts % (Manual) Lymphocytes % (Manual) Nucleated RBC % Seg Neutrophils # Man Lymphocytes # (Manual) Haptoglobin PT INR Fibrinogen Lupus Anticoagulant LA PTT Baseline POC ABG pH POC ABG pCO2 POC ABG pO2 Sodium Potassium Chloride Carbon Dioxide BUN Creatinine Glucose POC Glucose < 40 L < 40 L Lactic Acid Uric Acid Calcium Phosphorus Iron TIBC Erythropoietin Ferritin Total Bilirubin Direct Bilirubin AST ALT Alkaline Phosphatase Lactate Dehydrogenase C-Reactive Protein 40.40 H Serum Total Protein Total Protein Albumin Hevjo-7-Ffbnhpnae Abnorm Protein Band 1 PEP Interpretation Crossmatch 10/14/16 10/14/16 10/14/16 15:02 15:33 15:33 WBC RBC Hgb Hct MCV MCHC RDW Plt Count Seg Neuts % (Manual) Lymphocytes % (Manual) Nucleated RBC % Seg Neutrophils # Man Lymphocytes # (Manual) Haptoglobin PT INR Fibrinogen Lupus Anticoagulant LA PTT Baseline POC ABG pH POC ABG pCO2 POC ABG pO2 Sodium Potassium Chloride Carbon Dioxide BUN Creatinine Glucose 19 L* POC Glucose < 40 L Lactic Acid 11.60 H* Uric Acid Calcium Phosphorus Iron TIBC Erythropoietin Ferritin Total Bilirubin Direct Bilirubin AST ALT Alkaline Phosphatase Lactate Dehydrogenase C-Reactive Protein Serum Total Protein Total Protein Albumin Cwaek-5-Ziuipcizm Abnorm Protein Band 1 PEP Interpretation Crossmatch 10/14/16 10/14/16 10/14/16 17:14 18:03 21:25 WBC RBC Hgb Hct MCV MCHC RDW Plt Count Seg Neuts % (Manual) Lymphocytes % (Manual) Nucleated RBC % Seg Neutrophils # Man Lymphocytes # (Manual) Haptoglobin PT 28.9 H INR 2.71 H Fibrinogen Lupus Anticoagulant LA PTT Baseline POC ABG pH POC ABG pCO2 POC ABG pO2 Sodium Potassium Chloride Carbon Dioxide BUN Creatinine Glucose POC Glucose < 40 L 57 L Lactic Acid Uric Acid Calcium Phosphorus Iron TIBC Erythropoietin Ferritin Total Bilirubin Direct Bilirubin AST ALT Alkaline Phosphatase Lactate Dehydrogenase C-Reactive Protein Serum Total Protein Total Protein Albumin Ttqzw-7-Edmuooyne Abnorm Protein Band 1 PEP Interpretation Crossmatch 10/15/16 10/15/16 10/15/16 05:32 05:35 05:35 WBC RBC 2.62 L Hgb 8.1 L Hct 25.8 L MCV 98 H D MCHC 31 L RDW 21.2 H Plt Count 61 L Seg Neuts % (Manual) 27.0 L Lymphocytes % (Manual) 10.0 L Nucleated RBC % 2.0 H Seg Neutrophils # Man Lymphocytes # (Manual) 0.8 L Haptoglobin PT INR Fibrinogen Lupus Anticoagulant LA PTT Baseline POC ABG pH POC ABG pCO2 POC ABG pO2 Sodium Potassium Chloride Carbon Dioxide BUN Creatinine Glucose POC Glucose < 40 L Lactic Acid Uric Acid Calcium Phosphorus Iron TIBC Erythropoietin Ferritin Total Bilirubin Direct Bilirubin AST ALT Alkaline Phosphatase Lactate Dehydrogenase 3871 H C-Reactive Protein Serum Total Protein Total Protein Albumin Xpdsh-9-Bbbqfoukx Abnorm Protein Band 1 PEP Interpretation Crossmatch 10/15/16 10/15/16 10/15/16 05:35 05:35 05:35 WBC RBC Hgb Hct MCV MCHC RDW Plt Count Seg Neuts % (Manual) Lymphocytes % (Manual) Nucleated RBC % Seg Neutrophils # Man Lymphocytes # (Manual) Haptoglobin PT INR Fibrinogen Lupus Anticoagulant LA PTT Baseline POC ABG pH POC ABG pCO2 POC ABG pO2 Sodium 136 L Potassium 5.3 H D Chloride 91.4 L Carbon Dioxide 6 L* D BUN 57 H Creatinine 7.1 H Glucose 11 L* POC Glucose Lactic Acid 13.60 H* Uric Acid Calcium 7.7 L Phosphorus 10.10 H D Iron TIBC 166 L Erythropoietin Ferritin 9562.0 H Total Bilirubin Direct Bilirubin AST ALT Alkaline Phosphatase Lactate Dehydrogenase C-Reactive Protein Serum Total Protein Total Protein Albumin Wipwl-3-Xreegozjr Abnorm Protein Band 1 PEP Interpretation Crossmatch 10/15/16 10/15/16 10/15/16 05:51 06:22 06:52 WBC RBC Hgb Hct MCV MCHC RDW Plt Count Seg Neuts % (Manual) Lymphocytes % (Manual) Nucleated RBC % Seg Neutrophils # Man Lymphocytes # (Manual) Haptoglobin PT INR Fibrinogen Lupus Anticoagulant LA PTT Baseline POC ABG pH 7.189 L POC ABG pCO2 28.9 L POC ABG pO2 Sodium Potassium Chloride Carbon Dioxide BUN Creatinine Glucose POC Glucose 59 L 111 H Lactic Acid Uric Acid Calcium Phosphorus Iron TIBC Erythropoietin Ferritin Total Bilirubin Direct Bilirubin AST ALT Alkaline Phosphatase Lactate Dehydrogenase C-Reactive Protein Serum Total Protein Total Protein Albumin Fwiab-7-Tshsiifzr Abnorm Protein Band 1 PEP Interpretation Crossmatch 10/15/16 10/15/16 10/15/16 08:00 09:57 11:42 WBC RBC Hgb Hct MCV MCHC RDW Plt Count Seg Neuts % (Manual) Lymphocytes % (Manual) Nucleated RBC % Seg Neutrophils # Man Lymphocytes # (Manual) Haptoglobin PT INR Fibrinogen Lupus Anticoagulant LA PTT Baseline POC ABG pH POC ABG pCO2 POC ABG pO2 Sodium Potassium Chloride Carbon Dioxide BUN Creatinine Glucose POC Glucose 63 L 143 H 203 H Lactic Acid Uric Acid Calcium Phosphorus Iron TIBC Erythropoietin Ferritin Total Bilirubin Direct Bilirubin AST ALT Alkaline Phosphatase Lactate Dehydrogenase C-Reactive Protein Serum Total Protein Total Protein Albumin Psxrg-4-Ruefblrxn Abnorm Protein Band 1 PEP Interpretation Crossmatch 10/15/16 10/15/16 10/15/16 12:00 12:00 13:00 WBC RBC Hgb Hct MCV MCHC RDW Plt Count Seg Neuts % (Manual) Lymphocytes % (Manual) Nucleated RBC % Seg Neutrophils # Man Lymphocytes # (Manual) Haptoglobin <15 L PT INR Fibrinogen Lupus Anticoagulant LA PTT Baseline POC ABG pH POC ABG pCO2 POC ABG pO2 Sodium Potassium Chloride Carbon Dioxide BUN Creatinine Glucose POC Glucose 136 H Lactic Acid 16.30 H* Uric Acid Calcium Phosphorus Iron TIBC Erythropoietin Ferritin Total Bilirubin Direct Bilirubin AST ALT Alkaline Phosphatase Lactate Dehydrogenase C-Reactive Protein Serum Total Protein Total Protein Albumin Cumxu-2-Jqcrjadkm Abnorm Protein Band 1 PEP Interpretation Crossmatch 10/15/16 10/15/16 10/15/16 14:06 15:15 16:23 WBC RBC Hgb Hct MCV MCHC RDW Plt Count Seg Neuts % (Manual) Lymphocytes % (Manual) Nucleated RBC % Seg Neutrophils # Man Lymphocytes # (Manual) Haptoglobin PT INR Fibrinogen Lupus Anticoagulant LA PTT Baseline POC ABG pH POC ABG pCO2 POC ABG pO2 Sodium Potassium Chloride Carbon Dioxide BUN Creatinine Glucose POC Glucose 132 H 64 L Lactic Acid 20.40 H* Uric Acid Calcium Phosphorus Iron TIBC Erythropoietin Ferritin Total Bilirubin Direct Bilirubin AST ALT Alkaline Phosphatase Lactate Dehydrogenase C-Reactive Protein Serum Total Protein Total Protein Albumin Opfze-9-Utoiumbvc Abnorm Protein Band 1 PEP Interpretation Crossmatch 10/15/16 10/15/16 10/15/16 16:40 17:00 17:10 WBC RBC Hgb Hct MCV MCHC RDW Plt Count Seg Neuts % (Manual) Lymphocytes % (Manual) Nucleated RBC % Seg Neutrophils # Man Lymphocytes # (Manual) Haptoglobin PT INR Fibrinogen Lupus Anticoagulant LA PTT Baseline POC ABG pH 7.323 L POC ABG pCO2 25.8 L POC ABG pO2 135 H Sodium Potassium Chloride Carbon Dioxide BUN Creatinine Glucose POC Glucose 159 H Lactic Acid 20.20 H* Uric Acid Calcium Phosphorus Iron TIBC Erythropoietin Ferritin Total Bilirubin Direct Bilirubin AST ALT Alkaline Phosphatase Lactate Dehydrogenase C-Reactive Protein Serum Total Protein Total Protein Albumin Alkbu-5-Inutxlprl Abnorm Protein Band 1 PEP Interpretation Crossmatch 10/15/16 10/15/16 10/15/16 17:46 17:53 18:45 WBC RBC Hgb Hct MCV MCHC RDW Plt Count Seg Neuts % (Manual) Lymphocytes % (Manual) Nucleated RBC % Seg Neutrophils # Man Lymphocytes # (Manual) Haptoglobin PT INR Fibrinogen Lupus Anticoagulant LA PTT Baseline POC ABG pH POC ABG pCO2 POC ABG pO2 Sodium Potassium Chloride Carbon Dioxide BUN Creatinine Glucose POC Glucose 126 H 143 H Lactic Acid 21.40 H* Uric Acid Calcium Phosphorus Iron TIBC Erythropoietin Ferritin Total Bilirubin Direct Bilirubin AST ALT Alkaline Phosphatase Lactate Dehydrogenase C-Reactive Protein Serum Total Protein Total Protein Albumin Jznco-8-Eqojmzhjw Abnorm Protein Band 1 PEP Interpretation Crossmatch 10/15/16 10/15/16 10/16/16 20:03 22:59 00:06 WBC RBC Hgb Hct MCV MCHC RDW Plt Count Seg Neuts % (Manual) Lymphocytes % (Manual) Nucleated RBC % Seg Neutrophils # Man Lymphocytes # (Manual) Haptoglobin PT INR Fibrinogen Lupus Anticoagulant LA PTT Baseline POC ABG pH POC ABG pCO2 POC ABG pO2 Sodium Potassium Chloride Carbon Dioxide BUN Creatinine Glucose POC Glucose 66 L 53 L 126 H Lactic Acid Uric Acid Calcium Phosphorus Iron TIBC Erythropoietin Ferritin Total Bilirubin Direct Bilirubin AST ALT Alkaline Phosphatase Lactate Dehydrogenase C-Reactive Protein Serum Total Protein Total Protein Albumin Jelnm-8-Ccjeovqqb Abnorm Protein Band 1 PEP Interpretation Crossmatch 10/16/16 10/16/16 10/16/16 01:03 03:55 04:00 WBC RBC Hgb Hct MCV MCHC RDW Plt Count Seg Neuts % (Manual) Lymphocytes % (Manual) Nucleated RBC % Seg Neutrophils # Man Lymphocytes # (Manual) Haptoglobin PT INR Fibrinogen Lupus Anticoagulant LA PTT Baseline POC ABG pH POC ABG pCO2 POC ABG pO2 Sodium Potassium Chloride Carbon Dioxide BUN Creatinine Glucose POC Glucose 107 H 260 H Lactic Acid 18.00 H* Uric Acid Calcium Phosphorus Iron TIBC Erythropoietin Ferritin Total Bilirubin Direct Bilirubin AST ALT Alkaline Phosphatase Lactate Dehydrogenase C-Reactive Protein Serum Total Protein Total Protein Albumin Ojgds-2-Pupupvfcq Abnorm Protein Band 1 PEP Interpretation Crossmatch 10/16/16 10/16/16 10/16/16 04:03 07:58 08:34 WBC RBC Hgb Hct MCV MCHC RDW Plt Count Seg Neuts % (Manual) Lymphocytes % (Manual) Nucleated RBC % Seg Neutrophils # Man Lymphocytes # (Manual) Haptoglobin PT INR Fibrinogen Lupus Anticoagulant LA PTT Baseline POC ABG pH 7.527 H POC ABG pCO2 32.9 L POC ABG pO2 119 H Sodium Potassium Chloride Carbon Dioxide BUN Creatinine Glucose POC Glucose 120 H 66 L Lactic Acid Uric Acid Calcium Phosphorus Iron TIBC Erythropoietin Ferritin Total Bilirubin Direct Bilirubin AST ALT Alkaline Phosphatase Lactate Dehydrogenase C-Reactive Protein Serum Total Protein Total Protein Albumin Xcron-0-Erusabbjr Abnorm Protein Band 1 PEP Interpretation Crossmatch 10/16/16 10/16/16 10/16/16 09:13 10:06 10:57 WBC RBC Hgb Hct MCV MCHC RDW Plt Count Seg Neuts % (Manual) Lymphocytes % (Manual) Nucleated RBC % Seg Neutrophils # Man Lymphocytes # (Manual) Haptoglobin PT INR Fibrinogen Lupus Anticoagulant LA PTT Baseline POC ABG pH POC ABG pCO2 POC ABG pO2 Sodium Potassium Chloride Carbon Dioxide BUN Creatinine Glucose POC Glucose 147 H 137 H 140 H Lactic Acid Uric Acid Calcium Phosphorus Iron TIBC Erythropoietin Ferritin Total Bilirubin Direct Bilirubin AST ALT Alkaline Phosphatase Lactate Dehydrogenase C-Reactive Protein Serum Total Protein Total Protein Albumin Oguhu-6-Wvjasxmhf Abnorm Protein Band 1 PEP Interpretation Crossmatch 10/16/16 10/16/16 10/16/16 11:15 11:15 11:15 WBC 25.8 H RBC 2.30 L Hgb 7.0 L Hct 22.3 L MCV 97 H MCHC 31 L RDW 21.2 H Plt Count 42 L Seg Neuts % (Manual) Lymphocytes % (Manual) 3.0 L Nucleated RBC % 2.0 H Seg Neutrophils # Man 11.1 H Lymphocytes # (Manual) 0.8 L Haptoglobin PT INR Fibrinogen Lupus Anticoagulant LA PTT Baseline POC ABG pH POC ABG pCO2 POC ABG pO2 Sodium Potassium Chloride 81.7 L Carbon Dioxide 13 L D BUN 61 H Creatinine 6.2 H Glucose 171 H POC Glucose Lactic Acid 22.70 H* Uric Acid Calcium 7.1 L Phosphorus 9.10 H Iron TIBC Erythropoietin Ferritin Total Bilirubin Direct Bilirubin AST ALT Alkaline Phosphatase Lactate Dehydrogenase C-Reactive Protein Serum Total Protein Total Protein Albumin Ouyqo-9-Knhfmmsyz Abnorm Protein Band 1 PEP Interpretation Crossmatch 10/16/16 10/16/16 10/16/16 15:10 15:50 18:11 WBC RBC Hgb Hct MCV MCHC RDW Plt Count Seg Neuts % (Manual) Lymphocytes % (Manual) Nucleated RBC % Seg Neutrophils # Man Lymphocytes # (Manual) Haptoglobin PT INR Fibrinogen Lupus Anticoagulant LA PTT Baseline POC ABG pH POC ABG pCO2 POC ABG pO2 Sodium Potassium Chloride Carbon Dioxide BUN Creatinine Glucose POC Glucose 47 L 164 H 58 L Lactic Acid Uric Acid Calcium Phosphorus Iron TIBC Erythropoietin Ferritin Total Bilirubin Direct Bilirubin AST ALT Alkaline Phosphatase Lactate Dehydrogenase C-Reactive Protein Serum Total Protein Total Protein Albumin Yoleg-6-Yhswxkfyv Abnorm Protein Band 1 PEP Interpretation Crossmatch 10/16/16 10/16/16 10/17/16 18:26 21:06 00:06 WBC RBC Hgb Hct MCV MCHC RDW Plt Count Seg Neuts % (Manual) Lymphocytes % (Manual) Nucleated RBC % Seg Neutrophils # Man Lymphocytes # (Manual) Haptoglobin PT INR Fibrinogen Lupus Anticoagulant LA PTT Baseline POC ABG pH POC ABG pCO2 POC ABG pO2 489 H Sodium Potassium Chloride Carbon Dioxide BUN Creatinine Glucose POC Glucose 52 L 120 H Lactic Acid Uric Acid Calcium Phosphorus Iron TIBC Erythropoietin Ferritin Total Bilirubin Direct Bilirubin AST ALT Alkaline Phosphatase Lactate Dehydrogenase C-Reactive Protein Serum Total Protein Total Protein Albumin Hzpuu-3-Mtpespzoz Abnorm Protein Band 1 PEP Interpretation Crossmatch 10/17/16 10/17/16 10/17/16 04:55 04:55 05:04 WBC 25.5 H RBC 2.23 L Hgb 6.6 L Hct 21.2 L MCV 95 H MCHC 31 L RDW 20.5 H Plt Count 35 L Seg Neuts % (Manual) 79.0 H Lymphocytes % (Manual) 0 L Nucleated RBC % Seg Neutrophils # Man 20.1 H Lymphocytes # (Manual) 0.0 L Haptoglobin PT INR Fibrinogen Lupus Anticoagulant LA PTT Baseline POC ABG pH POC ABG pCO2 27.2 L POC ABG pO2 162 H Sodium Potassium Chloride 91.5 L Carbon Dioxide 16 L BUN 45 H Creatinine 4.5 H Glucose 103 H POC Glucose Lactic Acid Uric Acid Calcium 6.9 L Phosphorus 5.80 H D Iron TIBC Erythropoietin Ferritin Total Bilirubin Direct Bilirubin AST ALT Alkaline Phosphatase Lactate Dehydrogenase C-Reactive Protein Serum Total Protein Total Protein Albumin Zswch-5-Ckbjoaops Abnorm Protein Band 1 PEP Interpretation Crossmatch 10/17/16 10/17/16 10/17/16 07:59 09:04 10:04 WBC RBC Hgb Hct MCV MCHC RDW Plt Count Seg Neuts % (Manual) Lymphocytes % (Manual) Nucleated RBC % Seg Neutrophils # Man Lymphocytes # (Manual) Haptoglobin PT INR Fibrinogen Lupus Anticoagulant LA PTT Baseline POC ABG pH POC ABG pCO2 POC ABG pO2 Sodium Potassium Chloride Carbon Dioxide BUN Creatinine Glucose POC Glucose 65 L 118 H Lactic Acid Uric Acid Calcium Phosphorus Iron TIBC Erythropoietin Ferritin Total Bilirubin Direct Bilirubin AST ALT Alkaline Phosphatase Lactate Dehydrogenase C-Reactive Protein Serum Total Protein Total Protein Albumin Owstd-5-Ewiwehsxh Abnorm Protein Band 1 PEP Interpretation Crossmatch See Detail 10/17/16 10/17/16 10/17/16 11:52 13:08 15:42 WBC RBC Hgb Hct MCV MCHC RDW Plt Count Seg Neuts % (Manual) Lymphocytes % (Manual) Nucleated RBC % Seg Neutrophils # Man Lymphocytes # (Manual) Haptoglobin PT INR Fibrinogen Lupus Anticoagulant LA PTT Baseline POC ABG pH POC ABG pCO2 POC ABG pO2 Sodium Potassium Chloride Carbon Dioxide BUN Creatinine Glucose POC Glucose 125 H 106 H 55 L Lactic Acid Uric Acid Calcium Phosphorus Iron TIBC Erythropoietin Ferritin Total Bilirubin Direct Bilirubin AST ALT Alkaline Phosphatase Lactate Dehydrogenase C-Reactive Protein Serum Total Protein Total Protein Albumin Lkfhu-3-Mphpeyngz Abnorm Protein Band 1 PEP Interpretation Crossmatch 10/17/16 10/17/16 10/17/16 17:39 20:37 21:02 WBC RBC Hgb Hct MCV MCHC RDW Plt Count Seg Neuts % (Manual) Lymphocytes % (Manual) Nucleated RBC % Seg Neutrophils # Man Lymphocytes # (Manual) Haptoglobin PT INR Fibrinogen Lupus Anticoagulant LA PTT Baseline POC ABG pH POC ABG pCO2 28.2 L POC ABG pO2 Sodium Potassium Chloride Carbon Dioxide BUN Creatinine Glucose POC Glucose < 40 L 106 H Lactic Acid Uric Acid Calcium Phosphorus Iron TIBC Erythropoietin Ferritin Total Bilirubin Direct Bilirubin AST ALT Alkaline Phosphatase Lactate Dehydrogenase C-Reactive Protein Serum Total Protein Total Protein Albumin Nxhel-4-Sznxgendp Abnorm Protein Band 1 PEP Interpretation Crossmatch 10/17/16 10/17/16 10/18/16 22:18 23:14 00:28 WBC RBC Hgb Hct MCV MCHC RDW Plt Count Seg Neuts % (Manual) Lymphocytes % (Manual) Nucleated RBC % Seg Neutrophils # Man Lymphocytes # (Manual) Haptoglobin PT INR Fibrinogen Lupus Anticoagulant LA PTT Baseline POC ABG pH POC ABG pCO2 POC ABG pO2 Sodium Potassium Chloride Carbon Dioxide BUN Creatinine Glucose POC Glucose 111 H 118 H 112 H Lactic Acid Uric Acid Calcium Phosphorus Iron TIBC Erythropoietin Ferritin Total Bilirubin Direct Bilirubin AST ALT Alkaline Phosphatase Lactate Dehydrogenase C-Reactive Protein Serum Total Protein Total Protein Albumin Pdccr-4-Xtnrnsken Abnorm Protein Band 1 PEP Interpretation Crossmatch 10/18/16 10/18/16 10/18/16 05:00 05:00 05:15 WBC 27.3 H RBC 2.75 L Hgb 7.9 L Hct 25.3 L MCV MCHC 31 L RDW 20.7 H Plt Count 31 L Seg Neuts % (Manual) 87.0 H Lymphocytes % (Manual) 1.0 L Nucleated RBC % 1.0 H Seg Neutrophils # Man 23.8 H Lymphocytes # (Manual) 0.3 L Haptoglobin PT INR Fibrinogen Lupus Anticoagulant LA PTT Baseline POC ABG pH 7.466 H POC ABG pCO2 25.1 L POC ABG pO2 Sodium Potassium Chloride 88.7 L Carbon Dioxide 18 L BUN 66 H Creatinine 4.7 H Glucose POC Glucose Lactic Acid Uric Acid Calcium 6.1 L Phosphorus 7.30 H D Iron TIBC Erythropoietin Ferritin Total Bilirubin Direct Bilirubin AST ALT Alkaline Phosphatase Lactate Dehydrogenase C-Reactive Protein Serum Total Protein Total Protein Albumin Pzuno-6-Nqevhphxg Abnorm Protein Band 1 PEP Interpretation Crossmatch 10/18/16 10/18/16 10/18/16 07:15 07:44 09:07 WBC RBC Hgb Hct MCV MCHC RDW Plt Count Seg Neuts % (Manual) Lymphocytes % (Manual) Nucleated RBC % Seg Neutrophils # Man Lymphocytes # (Manual) Haptoglobin PT INR Fibrinogen Lupus Anticoagulant LA PTT Baseline POC ABG pH POC ABG pCO2 POC ABG pO2 Sodium Potassium Chloride Carbon Dioxide BUN Creatinine Glucose POC Glucose 64 L 156 H 117 H Lactic Acid Uric Acid Calcium Phosphorus Iron TIBC Erythropoietin Ferritin Total Bilirubin Direct Bilirubin AST ALT Alkaline Phosphatase Lactate Dehydrogenase C-Reactive Protein Serum Total Protein Total Protein Albumin Kttbh-4-Wqspruzdv Abnorm Protein Band 1 PEP Interpretation Crossmatch 10/18/16 10/18/16 10/18/16 09:15 14:00 18:21 WBC RBC Hgb Hct MCV MCHC RDW Plt Count Seg Neuts % (Manual) Lymphocytes % (Manual) Nucleated RBC % Seg Neutrophils # Man Lymphocytes # (Manual) Haptoglobin PT INR Fibrinogen Lupus Anticoagulant LA PTT Baseline POC ABG pH POC ABG pCO2 POC ABG pO2 Sodium Potassium Chloride Carbon Dioxide BUN Creatinine Glucose POC Glucose 106 H 112 H Lactic Acid 14.30 H* Uric Acid Calcium Phosphorus Iron TIBC Erythropoietin Ferritin Total Bilirubin Direct Bilirubin AST ALT Alkaline Phosphatase Lactate Dehydrogenase C-Reactive Protein Serum Total Protein Total Protein Albumin Oubqa-5-Ftntojcgl Abnorm Protein Band 1 PEP Interpretation Crossmatch 10/18/16 10/18/16 10/18/16 19:58 20:55 22:11 WBC RBC Hgb Hct MCV MCHC RDW Plt Count Seg Neuts % (Manual) Lymphocytes % (Manual) Nucleated RBC % Seg Neutrophils # Man Lymphocytes # (Manual) Haptoglobin PT INR Fibrinogen Lupus Anticoagulant LA PTT Baseline POC ABG pH POC ABG pCO2 POC ABG pO2 Sodium Potassium Chloride Carbon Dioxide BUN Creatinine Glucose POC Glucose 127 H 125 H 159 H Lactic Acid Uric Acid Calcium Phosphorus Iron TIBC Erythropoietin Ferritin Total Bilirubin Direct Bilirubin AST ALT Alkaline Phosphatase Lactate Dehydrogenase C-Reactive Protein Serum Total Protein Total Protein Albumin Vxdch-2-Hawqtxubd Abnorm Protein Band 1 PEP Interpretation Crossmatch 10/18/16 10/18/16 10/19/16 23:11 23:57 01:06 WBC RBC Hgb Hct MCV MCHC RDW Plt Count Seg Neuts % (Manual) Lymphocytes % (Manual) Nucleated RBC % Seg Neutrophils # Man Lymphocytes # (Manual) Haptoglobin PT INR Fibrinogen Lupus Anticoagulant LA PTT Baseline POC ABG pH POC ABG pCO2 POC ABG pO2 Sodium Potassium Chloride Carbon Dioxide BUN Creatinine Glucose POC Glucose 122 H 137 H 162 H Lactic Acid Uric Acid Calcium Phosphorus Iron TIBC Erythropoietin Ferritin Total Bilirubin Direct Bilirubin AST ALT Alkaline Phosphatase Lactate Dehydrogenase C-Reactive Protein Serum Total Protein Total Protein Albumin Wnnyz-5-Jowkmxmku Abnorm Protein Band 1 PEP Interpretation Crossmatch 10/19/16 10/19/16 10/19/16 01:59 03:07 04:10 WBC RBC Hgb Hct MCV MCHC RDW Plt Count Seg Neuts % (Manual) Lymphocytes % (Manual) Nucleated RBC % Seg Neutrophils # Man Lymphocytes # (Manual) Haptoglobin PT INR Fibrinogen Lupus Anticoagulant LA PTT Baseline POC ABG pH POC ABG pCO2 POC ABG pO2 Sodium Potassium Chloride Carbon Dioxide BUN Creatinine Glucose POC Glucose 154 H 178 H 186 H Lactic Acid Uric Acid Calcium Phosphorus Iron TIBC Erythropoietin Ferritin Total Bilirubin Direct Bilirubin AST ALT Alkaline Phosphatase Lactate Dehydrogenase C-Reactive Protein Serum Total Protein Total Protein Albumin Nziio-1-Yfhifcctb Abnorm Protein Band 1 PEP Interpretation Crossmatch 10/19/16 10/19/16 10/19/16 05:14 05:15 05:47 WBC RBC Hgb Hct MCV MCHC RDW Plt Count Seg Neuts % (Manual) Lymphocytes % (Manual) Nucleated RBC % Seg Neutrophils # Man Lymphocytes # (Manual) Haptoglobin PT INR Fibrinogen Lupus Anticoagulant LA PTT Baseline POC ABG pH 7.581 H POC ABG pCO2 22.9 L POC ABG pO2 58 L Sodium Potassium Chloride Carbon Dioxide BUN Creatinine Glucose POC Glucose 197 H 204 H Lactic Acid Uric Acid Calcium Phosphorus Iron TIBC Erythropoietin Ferritin Total Bilirubin Direct Bilirubin AST ALT Alkaline Phosphatase Lactate Dehydrogenase C-Reactive Protein Serum Total Protein Total Protein Albumin Xrkya-1-Nezugjmfp Abnorm Protein Band 1 PEP Interpretation Crossmatch 10/19/16 10/19/16 10/19/16 06:00 06:00 07:51 WBC 23.0 H RBC 2.54 L Hgb 7.5 L Hct 23.0 L MCV MCHC RDW 20.7 H Plt Count 25 L Seg Neuts % (Manual) 91.0 H Lymphocytes % (Manual) 2.0 L Nucleated RBC % 1.0 H Seg Neutrophils # Man 20.9 H Lymphocytes # (Manual) 0.5 L Haptoglobin PT INR Fibrinogen Lupus Anticoagulant LA PTT Baseline POC ABG pH POC ABG pCO2 POC ABG pO2 Sodium Potassium Chloride 88.7 L Carbon Dioxide 21 L BUN 70 H Creatinine 3.9 H Glucose 189 H POC Glucose 145 H Lactic Acid Uric Acid Calcium 5.6 L* Phosphorus 6.30 H Iron TIBC Erythropoietin Ferritin Total Bilirubin Direct Bilirubin AST ALT Alkaline Phosphatase Lactate Dehydrogenase C-Reactive Protein Serum Total Protein Total Protein Albumin Jjgsy-9-Ohvpzvdkf Abnorm Protein Band 1 PEP Interpretation Crossmatch 10/19/16 10/19/16 10/19/16 09:14 10:01 12:14 WBC RBC Hgb Hct MCV MCHC RDW Plt Count Seg Neuts % (Manual) Lymphocytes % (Manual) Nucleated RBC % Seg Neutrophils # Man Lymphocytes # (Manual) Haptoglobin PT INR Fibrinogen Lupus Anticoagulant LA PTT Baseline POC ABG pH POC ABG pCO2 POC ABG pO2 Sodium Potassium Chloride Carbon Dioxide BUN Creatinine Glucose POC Glucose 173 H 153 H 180 H Lactic Acid Uric Acid Calcium Phosphorus Iron TIBC Erythropoietin Ferritin Total Bilirubin Direct Bilirubin AST ALT Alkaline Phosphatase Lactate Dehydrogenase C-Reactive Protein Serum Total Protein Total Protein Albumin Yuyey-4-Xfcgzonro Abnorm Protein Band 1 PEP Interpretation Crossmatch 10/19/16 10/19/16 10/19/16 14:15 16:38 20:27 WBC RBC Hgb Hct MCV MCHC RDW Plt Count Seg Neuts % (Manual) Lymphocytes % (Manual) Nucleated RBC % Seg Neutrophils # Man Lymphocytes # (Manual) Haptoglobin PT INR Fibrinogen Lupus Anticoagulant LA PTT Baseline POC ABG pH POC ABG pCO2 POC ABG pO2 Sodium Potassium Chloride Carbon Dioxide BUN Creatinine Glucose POC Glucose 194 H 202 H Lactic Acid Uric Acid Calcium Phosphorus Iron TIBC Erythropoietin 148.2 H Ferritin Total Bilirubin Direct Bilirubin AST ALT Alkaline Phosphatase Lactate Dehydrogenase C-Reactive Protein Serum Total Protein Total Protein Albumin Lyywj-4-Ddcvrjxfm Abnorm Protein Band 1 PEP Interpretation Crossmatch 10/19/16 10/20/16 10/20/16 23:27 04:06 05:00 WBC RBC Hgb Hct MCV MCHC RDW Plt Count Seg Neuts % (Manual) Lymphocytes % (Manual) Nucleated RBC % Seg Neutrophils # Man Lymphocytes # (Manual) Haptoglobin PT INR Fibrinogen Lupus Anticoagulant LA PTT Baseline POC ABG pH POC ABG pCO2 POC ABG pO2 Sodium Potassium Chloride 88.8 L Carbon Dioxide BUN 93 H Creatinine 4.3 H Glucose 204 H POC Glucose 201 H 200 H Lactic Acid Uric Acid Calcium 5.2 L* Phosphorus Iron TIBC Erythropoietin Ferritin Total Bilirubin Direct Bilirubin AST ALT Alkaline Phosphatase Lactate Dehydrogenase C-Reactive Protein Serum Total Protein Total Protein Albumin Nxiam-3-Exovujmpz Abnorm Protein Band 1 PEP Interpretation Crossmatch 10/20/16 10/20/16 10/20/16 05:16 06:00 07:43 WBC 24.8 H RBC 2.52 L Hgb 7.4 L Hct 22.9 L MCV MCHC RDW 19.9 H Plt Count 23 L Seg Neuts % (Manual) 97.0 H Lymphocytes % (Manual) 1.0 L Nucleated RBC % 9.0 H Seg Neutrophils # Man 24.1 H Lymphocytes # (Manual) 0.2 L Haptoglobin PT INR Fibrinogen Lupus Anticoagulant LA PTT Baseline POC ABG pH 7.463 H POC ABG pCO2 POC ABG pO2 157 H Sodium Potassium Chloride Carbon Dioxide BUN Creatinine Glucose POC Glucose 192 H Lactic Acid Uric Acid Calcium Phosphorus Iron TIBC Erythropoietin Ferritin Total Bilirubin Direct Bilirubin AST ALT Alkaline Phosphatase Lactate Dehydrogenase C-Reactive Protein Serum Total Protein Total Protein Albumin Bubyo-0-Nfayvcsvr Abnorm Protein Band 1 PEP Interpretation Crossmatch 10/20/16 10/20/16 10/20/16 12:11 15:32 21:23 WBC RBC Hgb Hct MCV MCHC RDW Plt Count Seg Neuts % (Manual) Lymphocytes % (Manual) Nucleated RBC % Seg Neutrophils # Man Lymphocytes # (Manual) Haptoglobin PT INR Fibrinogen Lupus Anticoagulant LA PTT Baseline POC ABG pH POC ABG pCO2 POC ABG pO2 Sodium Potassium Chloride Carbon Dioxide BUN Creatinine Glucose POC Glucose 172 H 216 H 271 H Lactic Acid Uric Acid Calcium Phosphorus Iron TIBC Erythropoietin Ferritin Total Bilirubin Direct Bilirubin AST ALT Alkaline Phosphatase Lactate Dehydrogenase C-Reactive Protein Serum Total Protein Total Protein Albumin Gmhzj-7-Tjdztunkr Abnorm Protein Band 1 PEP Interpretation Crossmatch 10/20/16 10/21/16 10/21/16 23:49 03:53 04:58 WBC RBC Hgb Hct MCV MCHC RDW Plt Count Seg Neuts % (Manual) Lymphocytes % (Manual) Nucleated RBC % Seg Neutrophils # Man Lymphocytes # (Manual) Haptoglobin PT INR Fibrinogen Lupus Anticoagulant LA PTT Baseline POC ABG pH 7.459 H POC ABG pCO2 POC ABG pO2 113 H Sodium 136 L Potassium 2.8 L* D Chloride 91.6 L Carbon Dioxide BUN 62 H Creatinine 2.8 H Glucose 236 H POC Glucose 317 H Lactic Acid Uric Acid Calcium 6.2 L D Phosphorus Iron TIBC Erythropoietin Ferritin Total Bilirubin 2.70 H Direct Bilirubin AST 73 H ALT 57 H Alkaline Phosphatase 158 H Lactate Dehydrogenase C-Reactive Protein Serum Total Protein Total Protein 4.9 L Albumin 2.6 L Wjzlh-5-Heujsrdlw Abnorm Protein Band 1 PEP Interpretation Crossmatch 10/21/16 10/21/16 10/21/16 05:25 07:11 10:30 WBC 28.1 H RBC 2.36 L Hgb 7.0 L Hct 21.6 L MCV MCHC RDW 20.0 H Plt Count 14 L* Seg Neuts % (Manual) 92.0 H Lymphocytes % (Manual) 0 L Nucleated RBC % 5.0 H Seg Neutrophils # Man 25.9 H Lymphocytes # (Manual) 0.0 L Haptoglobin PT INR Fibrinogen Lupus Anticoagulant LA PTT Baseline POC ABG pH POC ABG pCO2 POC ABG pO2 Sodium Potassium Chloride Carbon Dioxide BUN Creatinine Glucose POC Glucose 237 H 206 H Lactic Acid Uric Acid Calcium Phosphorus Iron TIBC Erythropoietin Ferritin Total Bilirubin Direct Bilirubin AST ALT Alkaline Phosphatase Lactate Dehydrogenase C-Reactive Protein Serum Total Protein Total Protein Albumin Orhgc-5-Xkmndaepv Abnorm Protein Band 1 PEP Interpretation Crossmatch 10/21/16 10/21/16 10/21/16 11:25 12:31 16:33 WBC RBC Hgb Hct MCV MCHC RDW Plt Count Seg Neuts % (Manual) Lymphocytes % (Manual) Nucleated RBC % Seg Neutrophils # Man Lymphocytes # (Manual) Haptoglobin PT 49.1 H INR 5.28 H* Fibrinogen Lupus Anticoagulant LA PTT Baseline POC ABG pH POC ABG pCO2 POC ABG pO2 Sodium Potassium Chloride Carbon Dioxide BUN Creatinine Glucose POC Glucose 145 H 151 H Lactic Acid Uric Acid Calcium Phosphorus Iron TIBC Erythropoietin Ferritin Total Bilirubin Direct Bilirubin AST ALT Alkaline Phosphatase Lactate Dehydrogenase C-Reactive Protein Serum Total Protein Total Protein Albumin Qibwr-0-Ubhvtgcuo Abnorm Protein Band 1 PEP Interpretation Crossmatch 10/21/16 10/22/16 10/22/16 19:53 00:00 05:23 WBC RBC Hgb Hct MCV MCHC RDW Plt Count Seg Neuts % (Manual) Lymphocytes % (Manual) Nucleated RBC % Seg Neutrophils # Man Lymphocytes # (Manual) Haptoglobin PT INR Fibrinogen Lupus Anticoagulant LA PTT Baseline POC ABG pH POC ABG pCO2 POC ABG pO2 Sodium Potassium Chloride Carbon Dioxide BUN Creatinine Glucose POC Glucose 170 H 168 H 131 H Lactic Acid Uric Acid Calcium Phosphorus Iron TIBC Erythropoietin Ferritin Total Bilirubin Direct Bilirubin AST ALT Alkaline Phosphatase Lactate Dehydrogenase C-Reactive Protein Serum Total Protein Total Protein Albumin Breza-6-Cuntocfak Abnorm Protein Band 1 PEP Interpretation Crossmatch 10/22/16 10/22/16 10/22/16 05:25 05:35 13:03 WBC RBC Hgb Hct MCV MCHC RDW Plt Count Seg Neuts % (Manual) Lymphocytes % (Manual) Nucleated RBC % Seg Neutrophils # Man Lymphocytes # (Manual) Haptoglobin PT INR Fibrinogen Lupus Anticoagulant LA PTT Baseline POC ABG pH 7.462 H POC ABG pCO2 POC ABG pO2 Sodium 135 L Potassium 3.0 L Chloride 88.5 L Carbon Dioxide BUN 84 H Creatinine 3.4 H Glucose 124 H POC Glucose 164 H Lactic Acid Uric Acid Calcium 5.9 L* Phosphorus Iron TIBC Erythropoietin Ferritin Total Bilirubin 2.00 H Direct Bilirubin AST 85 H ALT Alkaline Phosphatase 199 H Lactate Dehydrogenase C-Reactive Protein Serum Total Protein Total Protein 5.0 L Albumin 2.5 L Jxnaq-3-Ylrqtlewo Abnorm Protein Band 1 PEP Interpretation Crossmatch 10/22/16 10/22/16 10/23/16 17:14 23:16 04:47 WBC RBC Hgb Hct MCV MCHC RDW Plt Count Seg Neuts % (Manual) Lymphocytes % (Manual) Nucleated RBC % Seg Neutrophils # Man Lymphocytes # (Manual) Haptoglobin PT INR Fibrinogen Lupus Anticoagulant LA PTT Baseline POC ABG pH 7.476 H POC ABG pCO2 POC ABG pO2 108 H Sodium Potassium Chloride Carbon Dioxide BUN Creatinine Glucose POC Glucose 188 H 167 H Lactic Acid Uric Acid Calcium Phosphorus Iron TIBC Erythropoietin Ferritin Total Bilirubin Direct Bilirubin AST ALT Alkaline Phosphatase Lactate Dehydrogenase C-Reactive Protein Serum Total Protein Total Protein Albumin Xaoql-2-Obrvcibzb Abnorm Protein Band 1 PEP Interpretation Crossmatch 10/23/16 10/23/16 10/23/16 05:49 07:00 07:12 WBC 24.2 H RBC 2.27 L Hgb 7.0 L Hct 21.1 L MCV MCHC RDW 19.7 H Plt Count 35 L D Seg Neuts % (Manual) Lymphocytes % (Manual) Nucleated RBC % Seg Neutrophils # Man Lymphocytes # (Manual) Haptoglobin PT INR Fibrinogen Lupus Anticoagulant LA PTT Baseline POC ABG pH POC ABG pCO2 POC ABG pO2 Sodium Potassium 3.5 L Chloride 95.7 L Carbon Dioxide BUN 55 H Creatinine 2.7 H Glucose 103 H POC Glucose 106 H Lactic Acid Uric Acid Calcium 7.1 L D Phosphorus Iron TIBC Erythropoietin Ferritin Total Bilirubin Direct Bilirubin AST ALT Alkaline Phosphatase Lactate Dehydrogenase C-Reactive Protein Serum Total Protein Total Protein Albumin Ordte-0-Vcprixzgs Abnorm Protein Band 1 PEP Interpretation Crossmatch 10/24/16 10/24/16 10/24/16 00:12 05:16 07:00 WBC 17.9 H RBC 2.12 L Hgb 6.5 L Hct 19.9 L* MCV MCHC RDW 19.3 H Plt Count 44 L Seg Neuts % (Manual) Lymphocytes % (Manual) Nucleated RBC % Seg Neutrophils # Man Lymphocytes # (Manual) Haptoglobin PT INR Fibrinogen Lupus Anticoagulant LA PTT Baseline POC ABG pH POC ABG pCO2 POC ABG pO2 Sodium Potassium Chloride Carbon Dioxide BUN Creatinine Glucose POC Glucose 116 H 135 H Lactic Acid Uric Acid Calcium Phosphorus Iron TIBC Erythropoietin Ferritin Total Bilirubin Direct Bilirubin AST ALT Alkaline Phosphatase Lactate Dehydrogenase C-Reactive Protein Serum Total Protein Total Protein Albumin Joatv-7-Eteixwluz Abnorm Protein Band 1 PEP Interpretation Crossmatch 10/24/16 10/24/16 10/24/16 07:00 11:45 12:12 WBC RBC Hgb Hct MCV MCHC RDW Plt Count Seg Neuts % (Manual) Lymphocytes % (Manual) Nucleated RBC % Seg Neutrophils # Man Lymphocytes # (Manual) Haptoglobin PT INR Fibrinogen Lupus Anticoagulant LA PTT Baseline POC ABG pH POC ABG pCO2 POC ABG pO2 Sodium Potassium Chloride 92.9 L Carbon Dioxide BUN 74 H Creatinine 3.3 H Glucose 136 H POC Glucose 177 H Lactic Acid Uric Acid Calcium 6.6 L Phosphorus Iron TIBC Erythropoietin Ferritin Total Bilirubin 2.10 H Direct Bilirubin AST 68 H ALT Alkaline Phosphatase 224 H Lactate Dehydrogenase C-Reactive Protein Serum Total Protein Total Protein 4.8 L Albumin 2.3 L Vsuox-4-Cvexboibe Abnorm Protein Band 1 PEP Interpretation Crossmatch See Detail 10/24/16 10/24/16 10/24/16 16:30 16:30 17:28 WBC RBC Hgb Hct MCV MCHC RDW Plt Count Seg Neuts % (Manual) Lymphocytes % (Manual) Nucleated RBC % Seg Neutrophils # Man Lymphocytes # (Manual) Haptoglobin PT INR Fibrinogen Lupus Anticoagulant LA PTT Baseline POC ABG pH POC ABG pCO2 POC ABG pO2 Sodium Potassium Chloride Carbon Dioxide BUN Creatinine Glucose POC Glucose 128 H Lactic Acid 3.00 H* Uric Acid Calcium Phosphorus Iron TIBC Erythropoietin Ferritin Total Bilirubin Direct Bilirubin AST ALT Alkaline Phosphatase Lactate Dehydrogenase C-Reactive Protein 7.40 H Serum Total Protein Total Protein Albumin Hvyjy-8-Yygpxmfou Abnorm Protein Band 1 PEP Interpretation Crossmatch 10/24/16 10/24/16 10/25/16 18:40 23:32 05:00 WBC 17.5 H RBC 2.99 L Hgb 9.1 L Hct 26.9 L D MCV MCHC RDW 17.7 H Plt Count 53 L Seg Neuts % (Manual) Lymphocytes % (Manual) Nucleated RBC % Seg Neutrophils # Man Lymphocytes # (Manual) Haptoglobin PT INR Fibrinogen Lupus Anticoagulant LA PTT Baseline POC ABG pH POC ABG pCO2 POC ABG pO2 Sodium Potassium Chloride Carbon Dioxide BUN Creatinine Glucose POC Glucose 140 H Lactic Acid 3.10 H* Uric Acid Calcium Phosphorus Iron TIBC Erythropoietin Ferritin Total Bilirubin Direct Bilirubin AST ALT Alkaline Phosphatase Lactate Dehydrogenase C-Reactive Protein Serum Total Protein Total Protein Albumin Tnutx-7-Wqllfwcuo Abnorm Protein Band 1 PEP Interpretation Crossmatch 10/25/16 10/25/16 05:00 05:22 WBC RBC Hgb Hct MCV MCHC RDW Plt Count Seg Neuts % (Manual) Lymphocytes % (Manual) Nucleated RBC % Seg Neutrophils # Man Lymphocytes # (Manual) Haptoglobin PT INR Fibrinogen Lupus Anticoagulant LA PTT Baseline POC ABG pH POC ABG pCO2 POC ABG pO2 Sodium Potassium Chloride 91.6 L Carbon Dioxide BUN 89 H Creatinine 3.9 H Glucose 150 H POC Glucose 164 H Lactic Acid Uric Acid Calcium 6.9 L Phosphorus Iron TIBC Erythropoietin Ferritin Total Bilirubin Direct Bilirubin AST ALT Alkaline Phosphatase Lactate Dehydrogenase C-Reactive Protein Serum Total Protein Total Protein Albumin Vbudf-4-Gqxplqhsh Abnorm Protein Band 1 PEP Interpretation Crossmatch Allied health notes reviewed: RT
[2016-10-25] MEDS ORDERED: NACL 0.9% 1000 ML 2,000 ML ONE ×2 (14:29→15:41)
[2016-10-25] MEDS: HEPARIN IV PRN (15:40)
[2016-10-25] MEDS: LOPRESSOR PO SCH ×2 (16:21→21:22)
[2016-10-25] MEDS ORDERED: VANCOMYCIN 1,250 MG in NACL 0.9% 250ML 250 ML IV ONE (20:00)
--- NOTE | 2016-10-26 00:48 | Consultation ---
History of Present Illness - Reason for Consult Consult date: 10/25/16 - History of Present Illness Patient seen/examined, no family around. Plasma phoresis is on hold. I have spoken to the [place] in the am,hrs of 10/25/16. The [id number] result to be reviewed, to see if current tx needed, or does a new tx plan needed. Past History Past Medical History: hypertension, other (Had shingles in November 25-) Past Surgical History: No surgical history Social history: , full code, other (Patienti s and lives with his ). denies: smoking, alcohol abuse, prescription drug abuse, IV drug use Family history: no significant family history Medications and Allergies Allergies Allergy/AdvReac Type Severity Reaction Status Date / Time No Known Allergies Allergy Unverified 10/13/16 09:41 Home Medications Medication Instructions Recorded Confirmed Last Taken Type Naproxen Sodium [Aleve TAB] 2 tab PO Q8H PRN 10/13/16 10/13/16 10/12/16 14:00 History Active Meds: Active Medications Acetaminophen (Tylenol) 1,000 mg AL Q4H PRN PRN Reason: Pain, Mild (1-3) Last Admin: 10/20/16 15:40 Dose: 1,000 mg Acetaminophen (Tylenol) 650 mg FEEDTUBE Q6H PRN PRN Reason: Pain, Mild (1-3) Last Admin: 10/24/16 10:56 Dose: 650 mg Lipase/Protease/Amylase (Pancreaze Dr 10,500 Unit) 1 each FEEDTUBE PRN PRN PRN Reason: For Clogged Feeding Tube Dextrose (D50w (25gm)) 25 ml IV PRN PRN PRN Reason: Hypoglycemia Last Admin: 10/18/16 07:20 Dose: 25 ml Diphenhydramine HCl (Benadryl) 50 mg IV Q6H PRN PRN Reason: Itching Last Admin: 10/24/16 10:57 Dose: 50 mg Famotidine (Pepcid) 20 mg PO Q24H EDWINA Last Admin: 10/25/16 10:11 Dose: 20 mg Furosemide (Lasix) 40 mg IV 0600,1800 EDWINA Last Admin: 10/25/16 18:20 Dose: 40 mg Haloperidol Lactate (Haldol) 5 mg IM Q6H PRN PRN Reason: Agitation Last Admin: 10/14/16 21:11 Dose: 5 mg Heparin Sodium (Porcine) (Heparin) 10,000 unit IV ROD PRN PRN Reason: for plasmapheresis- vascath Last Admin: 10/25/16 15:40 Dose: 10,000 unit Hydrocortisone Sodium Succinate (Solu-Cortef) 60 mg IV Q8HR EDWINA Last Admin: 10/25/16 22:13 Dose: 60 mg Hydrophilic Ointment (Vaseline Lip Therapy) 1 applic TP Q2H PRN PRN Reason: Dry Lips Sodium Chloride (Nacl 0.9%) 100 mls @ 999 mls/hr IV ROD PRN PRN Reason: Hypotension Norepinephrine (Levophed Drip 4 Mg/Ns 250 Ml) 4 mg in 250 mls @ 7.5 mls/hr IV TITR EDWINA; 2 MCG/MIN PRN Reason: Protocol Last Admin: 10/19/16 18:56 Dose: 4 mcg/min, 15 mls/hr Propofol (Diprivan 10 Mg/Ml) 1,000 mg in 100 mls @ 1.827 mls/hr IV TITR EDWINA; 5 MCG/KG/MIN PRN Reason: Protocol Last Titration: 10/20/16 10:12 Dose: 0 mcg/kg/min, 0 mls/hr Fentanyl Citrate (Fentanyl Drip Premix) 2,000 mcg in 100 mls @ 3.045 mls/hr IV TITR EDWINA; 1 MCG/KG/HR PRN Reason: Protocol Sodium Chloride (Nacl 0.9%) 100 mls @ 999 mls/hr IV ROD PRN PRN Reason: Hypotension Insulin Aspart (Novolog) 0 units SUB-Q Q6HR EDWINA PRN Reason: Protocol Last Admin: 10/25/16 18:20 Dose: 3 units Labetalol HCl (Normodyne) 20 mg IV Q6H PRN PRN Reason: Hypertension Last Admin: 10/25/16 05:33 Dose: 20 mg Metoprolol Tartrate (Lopressor) 25 mg PO BID [facility] Last Admin: 10/25/16 21:22 Dose: 25 mg Multi-Ingred Cream/Lotion/Oil/Oint (Artificial Tears Ophth Oint) 1 applic OU Q4H PRN PRN Reason: Dry Eye(s) Ondansetron HCl (Zofran) 4 mg IV Q8H PRN PRN Reason: Nausea And Vomiting Simple Syrup (Simple Syrup) 15 ml FEEDTUBE PRN PRN PRN Reason: Hypoglycemia Simple Syrup (Simple Syrup) 30 ml FEEDTUBE PRN PRN PRN Reason: Hypoglycemia Sodium Bicarbonate (Sodium Bicarbonate) 325 mg FEEDTUBE PRN PRN PRN Reason: For Clogged Feeding Tube Sodium Chloride (Sodium Chloride Flush Syringe 10 Ml) 10 ml IV PRN PRN PRN Reason: LINE FLUSH Last Admin: 10/17/16 20:45 Dose: 10 ml Vancomycin HCl (Vancomycin Pharmacy To Dose) 1 each IV PKCONSULT EDWINA PRN Reason: Protocol Review of Systems Respiratory: other (on vent.) Exam - Constitutional Vitals: Temp Pulse Resp BP Pulse Ox 99.6 F 77 17 146/88 95 10/26/16 00:00 10/26/16 00:00 10/26/16 00:00 10/26/16 00:00 10/26/16 00:00 General appearance: Present: severe distress - Neck Neck: Present: supple, normal ROM - Respiratory Respiratory: bilateral: other (on the vent) - Cardiovascular Heart Sounds: Absent: rub, click - Extremities Extremities: pulses symmetrical, No edema Peripheral Pulses: within normal limits - Abdominal General gastrointestinal: Present: soft, non-tender, non-distended, normal bowel sounds Male genitourinary: Present: deferred - Rectal Rectal Exam: deferred - Integumentary Integumentary: Present: clear, warm, dry Results - Labs CBC & Chem 7: 10/25/16 05:00 10/25/16 05:00 Labs: Abnormal lab results 10/25/16 10/25/16 10/25/16 Range/Units 05:00 05:00 05:22 WBC 17.5 H (4.5-11.0) K/mm3 RBC 2.99 L (3.65-5.03) M/mm3 Hgb 9.1 L (11.8-15.2) gm/dl Hct 26.9 L D (35.5-45.6) % RDW 17.7 H (13.2-15.2) % Plt Count 53 L (140-440) K/mm3 Chloride 91.6 L (98-107) mmol/L BUN 89 H (9-20) mg/dL Creatinine 3.9 H (0.8-1.5) mg/dL Glucose 150 H (75-100) mg/dL POC Glucose 164 H (70-105) Calcium 6.9 L (8.4-10.2) mg/dL 10/25/16 10/25/16 10/25/16 Range/Units 11:58 17:56 23:12 WBC (4.5-11.0) K/mm3 RBC (3.65-5.03) M/mm3 Hgb (11.8-15.2) gm/dl Hct (35.5-45.6) % RDW (13.2-15.2) % Plt Count (140-440) K/mm3 Chloride (98-107) mmol/L BUN (9-20) mg/dL Creatinine (0.8-1.5) mg/dL Glucose (75-100) mg/dL POC Glucose 189 H 156 H 133 H (70-105) Calcium (8.4-10.2) mg/dL Assessment and Plan - Patient Problems (1) Anemia Current Visit: Yes Status: Acute Qualifiers: Anemia type: unspecified type Iron deficiency anemia type: I Vitamin B12 deficiency anemia type: V Folate deficiency anemia type: F Bone marrow failure anemia type: B Hemolytic anemia type: H Other causes of anemia: O Qualified Code(s): D64.9 - Anemia, unspecified Plan to address problem: post transfusion. (2) Leucopenia Current Visit: Yes Status: Acute Qualifiers: Leukopenia type: unspecified Neutropenia type: N Qualified Code(s): D72.819 - Decreased white blood cell count, unspecified Plan to address problem: same as above. resolved. (3) Renal failure Current Visit: Yes Status: Acute Qualifiers: Renal failure chronicity: acute Acute renal failure type: unspecified Chronic kidney disease stage: C Qualified Code(s): N17.9 - Acute kidney failure, unspecified Plan to address problem: See w/up, and renal service. see notes
[2016-10-26] MEDS: NOVOLOG SUB-Q SCH ×4 (04:24→18:29)
[2016-10-26] MEDS: LASIX IV SCH ×2 (05:11→18:29)
[2016-10-26 06:59] LABS: Hemoglobin 9.6 gm/dl (11.8-15.2); Mean Corpuscular HGB Conc 33 % (32-34); Mean Corpuscular Hemoglobin 30 pg (28-32); Mean Corpuscular Volume 92 fl (84-94); Red Blood Count 3.15 M/mm3 (3.65-5.03); Red Cell Distribution Width 17.8 % (13.2-15.2); White Blood Count 18.6 K/mm3 (4.5-11.0)
[2016-10-26 07:05] LABS: BUN/Creatinine Ratio 22.06; Calcium 7.3 mg/dL (8.4-10.2); Chloride 90.7 mmol/L (98-107); Potassium 3.7 mmol/L (3.6-5.0)
[2016-10-26 08:07] LABS: Platelet Count 71 K/mm3 (140-440)
[2016-10-26] MEDS: PEPCID PO SCH (09:20)
[2016-10-26] MEDS: LOPRESSOR PO SCH ×2 (09:20→22:15)
[2016-10-26 10:32] LABS: Basophils % (Manual) 0 % (0.0-1.8); Blastocytes % (Manual) 0 %; Eosinophils % (Manual) 0 % (0.0-4.3)
[2016-10-26 10:33] LABS: Anisocytosis 1+; Burr Cells Rare; Diff Status Complete; Large Platelets Few; Platelet Estimate Appears Decreased; Polychromasia Rare
--- NOTE | 2016-10-26 11:22 | Progress Note ---
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) - continue HD/UF per nephrology recs - follow I's and O's (oliguric at this point) - correct electrolytes prn - avoid nephrotoxins - per nephrology otherwise (3) Metabolic acidosis Current Visit: Yes Status: Acute Plan to address problem: - mixed etiology - Lactic Acidosis component - sepsis may be driving force for that - RAJESH component - continue HD/UF per nephrology prescription - Anti-infectives per ID recs - lactate improved (4) CHF (congestive heart failure) Current Visit: Yes Status: Acute Qualifiers: Congestive heart failure type: C Congestive heart failure chronicity: C Plan to address problem: - ECHO consistent with possible infiltrating disease - cardiology consulted - EF 30& - s/p volume resuscitation for sepsis - per cardiology otherwise - requested JONATHAN to r/o endocarditis in light of cultures and MRI picture which is 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 (5) Pancytopenia Current Visit: Yes Status: Acute Plan to address problem: - hematology on case - continuing plasmapheresis - may need bone marrow evaluation - platelet count continues trending slowly up now (6) Acute encephalopathy Current Visit: Yes Status: Acute Plan to address problem: - CT brain negative - likely toxic-metabolic encephalopathy - MRI abnormal - neurology evaluation ongoing - following clinically (7) Hypoglycemia Current Visit: Yes Status: Acute Plan to address problem: - improved - suspect sepsis related element - will continue systemic steroids but taper - also continue enteral nutrition - glycemic control via SSI at this point (8) Sepsis syndrome Current Visit: Yes Status: Acute Plan to address problem: - s/p antibiotic course - ID on case - CRP and lactate much improved - for JONATHAN (9) Discharge planning issues Current Visit: Yes Status: Acute Plan to address problem: - he remains critically ill on life sustaining interventions including MVS and at risk for further deterioration including ...35' CCT Subjective Date of service: 05/31/17 Principal diagnosis: Sepsis Syndrome; MAHA; RAJESH; CHF; TTP Interval history: Seen and examined at bedside; 24 hour events reviewed; nursing and respiratory care staff consulted; no adverse overnight events reported to me; AMS is persistent; at best attempts to open eyes to stimulus; remains on MVS; platelets recovering Objective Vital Signs - 12hr 10/25/16 10/25/16 10/26/16 23:30 23:45 00:00 Temperature 99.6 F Pulse Rate 78 77 77 Pulse Rate [ From Monitor] Respiratory 19 18 17 Rate Blood Pressure 152/90 147/87 146/88 O2 Sat by Pulse 99 97 95 Oximetry 10/26/16 10/26/16 10/26/16 00:08 00:15 00:30 Temperature Pulse Rate 79 82 78 Pulse Rate [ From Monitor] Respiratory 21 19 19 Rate Blood Pressure 146/88 170/102 144/91 O2 Sat by Pulse 99 95 97 Oximetry 10/26/16 10/26/16 10/26/16 00:45 01:00 01:15 Temperature Pulse Rate 76 78 78 Pulse Rate [ From Monitor] Respiratory 18 18 19 Rate Blood Pressure 144/86 145/87 147/87 O2 Sat by Pulse 96 95 Oximetry 10/26/16 10/26/16 10/26/16 01:30 01:45 02:00 Temperature Pulse Rate 77 81 78 Pulse Rate [ From Monitor] Respiratory 18 19 19 Rate Blood Pressure 148/90 153/97 146/87 O2 Sat by Pulse 97 96 Oximetry 10/26/16 10/26/16 10/26/16 02:15 02:30 02:45 Temperature Pulse Rate 75 76 77 Pulse Rate [ From Monitor] Respiratory 18 17 18 Rate Blood Pressure 140/82 123/72 157/94 O2 Sat by Pulse 95 97 97 Oximetry 10/26/16 10/26/16 10/26/16 03:00 03:15 03:30 Temperature Pulse Rate 84 78 77 Pulse Rate [ From Monitor] Respiratory 18 19 18 Rate Blood Pressure 161/140 151/93 149/92 O2 Sat by Pulse 98 97 99 Oximetry 10/26/16 10/26/16 10/26/16 03:45 04:00 04:15 Temperature 99.0 F Pulse Rate 75 76 75 Pulse Rate [ 79 From Monitor] Respiratory 15 18 18 Rate Blood Pressure 147/91 144/90 139/87 O2 Sat by Pulse 96 97 97 Oximetry 10/26/16 10/26/16 10/26/16 04:30 04:45 05:00 Temperature Pulse Rate 76 75 76 Pulse Rate [ From Monitor] Respiratory 18 19 18 Rate Blood Pressure 147/93 143/89 146/88 O2 Sat by Pulse 97 97 98 Oximetry 10/26/16 10/26/16 10/26/16 05:10 05:15 05:30 Temperature Pulse Rate 77 77 77 Pulse Rate [ From Monitor] Respiratory 19 21 Rate Blood Pressure 146/88 141/85 150/90 O2 Sat by Pulse 100 96 97 Oximetry 10/26/16 10/26/16 10/26/16 05:45 06:00 06:15 Temperature Pulse Rate 74 75 78 Pulse Rate [ From Monitor] Respiratory 18 15 18 Rate Blood Pressure 141/83 135/84 142/94 O2 Sat by Pulse 96 98 97 Oximetry 10/26/16 10/26/16 10/26/16 06:30 06:45 07:00 Temperature Pulse Rate 80 74 77 Pulse Rate [ From Monitor] Respiratory 19 15 16 Rate Blood Pressure 138/86 142/86 148/90 O2 Sat by Pulse 98 98 97 Oximetry 10/26/16 10/26/16 10/26/16 07:15 07:30 07:45 Temperature Pulse Rate 77 75 75 Pulse Rate [ From Monitor] Respiratory 17 16 16 Rate Blood Pressure 158/98 145/92 149/93 O2 Sat by Pulse 95 95 Oximetry 10/26/16 10/26/16 10/26/16 08:00 08:10 08:15 Temperature 99.3 F Pulse Rate 77 77 77 Pulse Rate [ From Monitor] Respiratory 15 16 Rate Blood Pressure 156/97 145/92 151/96 O2 Sat by Pulse 97 99 95 Oximetry 10/26/16 10/26/16 10/26/16 08:30 08:45 09:00 Temperature Pulse Rate 76 74 74 Pulse Rate [ From Monitor] Respiratory 15 14 15 Rate Blood Pressure 144/90 138/89 138/87 O2 Sat by Pulse 95 98 Oximetry 10/26/16 10/26/16 10/26/16 09:15 09:20 10:03 Temperature Pulse Rate 78 79 71 Pulse Rate [ From Monitor] Respiratory 14 Rate Blood Pressure 146/98 138/87 O2 Sat by Pulse 96 Oximetry Constitutional: no acute distress, lethargic Eyes: non-icteric ENT: oropharynx moist Neck: supple, no lymphadenopathy Effort: normal Ascultation: Bilateral: diminished breath sounds, rales (scant in bases) Cardiovascular: irregular rhythm Gastrointestinal: normoactive bowel sounds, soft, non-tender, non-distended Integumentary: erythema (ecchymosis/purpura) Extremities: no cyanosis, pulses normal, no ischemia or petechiae, edema Neurologic: non-focal exam (grossly), pupils equal and round, unable to assess Psychiatric: other (unable to assess) CBC and BMP: 10/26/16 06:15 10/26/16 04:00 ABG, PT/INR, D-dimer: ABG POC ABG pH 7.476 (7.35-7.45) H 10/23/16 04:47 POC ABG pCO2 37.4 (35-45) 10/23/16 04:47 POC ABG pO2 108 (80-105) H 10/23/16 04:47 POC ABG HCO3 27.6 10/23/16 04:47 POC ABG Total CO2 29 10/23/16 04:47 POC ABG O2 Sat 99 10/23/16 04:47 PT/INR, D-dimer PT 49.1 Sec. (12.2-14.9) H 10/21/16 11:25 INR 5.28 (0.87-1.13) H* 10/21/16 11:25 Abnormal lab findings: Abnormal Labs 10/13/16 10/13/16 10/13/16 14:50 21:40 22:05 WBC RBC Hgb Hct MCV MCHC RDW Plt Count Seg Neuts % (Manual) Lymphocytes % (Manual) Nucleated RBC % Seg Neutrophils # Man Lymphocytes # (Manual) Haptoglobin PT INR Fibrinogen Lupus Anticoagulant LA PTT Baseline POC ABG pH POC ABG pCO2 POC ABG pO2 Sodium Potassium Chloride Carbon Dioxide BUN Creatinine Glucose POC Glucose 52 L 43 L Lactic Acid Uric Acid Calcium Phosphorus Iron TIBC Erythropoietin Ferritin Total Bilirubin Direct Bilirubin AST ALT Alkaline Phosphatase Lactate Dehydrogenase C-Reactive Protein Serum Total Protein 5.6 L Total Protein Albumin 2.2 L Hjudq-4-Aahhljcyz 0.5 H Abnorm Protein Band 1 1.4 H PEP Interpretation see below H Crossmatch 10/13/16 10/14/16 10/14/16 23:18 03:00 03:00 WBC RBC Hgb Hct MCV MCHC RDW Plt Count Seg Neuts % (Manual) Lymphocytes % (Manual) Nucleated RBC % Seg Neutrophils # Man Lymphocytes # (Manual) Haptoglobin PT INR Fibrinogen Lupus Anticoagulant see below H LA PTT Baseline 55 H POC ABG pH POC ABG pCO2 POC ABG pO2 Sodium Potassium Chloride Carbon Dioxide BUN Creatinine Glucose POC Glucose 113 H Lactic Acid Uric Acid Calcium Phosphorus Iron TIBC Erythropoietin Ferritin Total Bilirubin Direct Bilirubin AST ALT Alkaline Phosphatase Lactate Dehydrogenase 406 H C-Reactive Protein Serum Total Protein Total Protein Albumin Cfhwj-9-Iadgrkcxt Abnorm Protein Band 1 PEP Interpretation Crossmatch 10/14/16 10/14/16 10/14/16 03:00 03:00 04:34 WBC 1.3 L* RBC 2.33 L Hgb 7.3 L Hct 21.7 L MCV MCHC RDW 19.8 H Plt Count 99 L Seg Neuts % (Manual) Lymphocytes % (Manual) 3.0 L Nucleated RBC % Seg Neutrophils # Man 0.9 L Lymphocytes # (Manual) 0.0 L Haptoglobin PT INR Fibrinogen Lupus Anticoagulant LA PTT Baseline POC ABG pH POC ABG pCO2 POC ABG pO2 Sodium Potassium Chloride Carbon Dioxide 18 L BUN 73 H Creatinine 9.8 H Glucose 59 L POC Glucose Lactic Acid Uric Acid 8.0 H Calcium 8.2 L Phosphorus 6.60 H Iron 13 L TIBC 160 L Erythropoietin Ferritin Total Bilirubin Direct Bilirubin AST ALT Alkaline Phosphatase Lactate Dehydrogenase C-Reactive Protein Serum Total Protein Total Protein Albumin Thliz-6-Ljtgfjmxr Abnorm Protein Band 1 PEP Interpretation Crossmatch 10/14/16 10/14/16 10/14/16 05:27 06:29 07:34 WBC RBC Hgb Hct MCV MCHC RDW Plt Count Seg Neuts % (Manual) Lymphocytes % (Manual) Nucleated RBC % Seg Neutrophils # Man Lymphocytes # (Manual) Haptoglobin PT INR Fibrinogen Lupus Anticoagulant LA PTT Baseline POC ABG pH POC ABG pCO2 POC ABG pO2 Sodium Potassium Chloride Carbon Dioxide BUN Creatinine Glucose POC Glucose < 40 L 63 L < 40 L Lactic Acid Uric Acid Calcium Phosphorus Iron TIBC Erythropoietin Ferritin Total Bilirubin Direct Bilirubin AST ALT Alkaline Phosphatase Lactate Dehydrogenase C-Reactive Protein Serum Total Protein Total Protein Albumin Hxghr-5-Lbfqpkszf Abnorm Protein Band 1 PEP Interpretation Crossmatch 10/14/16 10/14/16 10/14/16 09:58 09:58 09:58 WBC RBC Hgb Hct MCV MCHC RDW Plt Count Seg Neuts % (Manual) Lymphocytes % (Manual) Nucleated RBC % Seg Neutrophils # Man Lymphocytes # (Manual) Haptoglobin 218 H PT INR Fibrinogen 557 H Lupus Anticoagulant LA PTT Baseline POC ABG pH POC ABG pCO2 POC ABG pO2 Sodium Potassium Chloride Carbon Dioxide BUN Creatinine Glucose POC Glucose Lactic Acid Uric Acid Calcium Phosphorus Iron TIBC Erythropoietin Ferritin Total Bilirubin 1.30 H Direct Bilirubin 1.1 H AST ALT Alkaline Phosphatase Lactate Dehydrogenase C-Reactive Protein Serum Total Protein Total Protein Albumin Eqhpb-5-Mnjxkcwqb Abnorm Protein Band 1 PEP Interpretation Crossmatch 10/14/16 10/14/16 10/14/16 10:57 11:15 12:52 WBC RBC Hgb Hct MCV MCHC RDW Plt Count Seg Neuts % (Manual) Lymphocytes % (Manual) Nucleated RBC % Seg Neutrophils # Man Lymphocytes # (Manual) Haptoglobin PT INR Fibrinogen Lupus Anticoagulant LA PTT Baseline POC ABG pH POC ABG pCO2 POC ABG pO2 Sodium Potassium Chloride Carbon Dioxide BUN Creatinine Glucose POC Glucose < 40 L < 40 L Lactic Acid 9.60 H* Uric Acid Calcium Phosphorus Iron TIBC Erythropoietin Ferritin Total Bilirubin Direct Bilirubin AST ALT Alkaline Phosphatase Lactate Dehydrogenase C-Reactive Protein Serum Total Protein Total Protein Albumin Qvjzf-5-Ptqnwzmfa Abnorm Protein Band 1 PEP Interpretation Crossmatch 10/14/16 10/14/16 10/14/16 12:52 13:17 14:12 WBC RBC Hgb Hct MCV MCHC RDW Plt Count Seg Neuts % (Manual) Lymphocytes % (Manual) Nucleated RBC % Seg Neutrophils # Man Lymphocytes # (Manual) Haptoglobin PT INR Fibrinogen Lupus Anticoagulant LA PTT Baseline POC ABG pH POC ABG pCO2 POC ABG pO2 Sodium Potassium Chloride Carbon Dioxide BUN Creatinine Glucose POC Glucose < 40 L < 40 L Lactic Acid Uric Acid Calcium Phosphorus Iron TIBC Erythropoietin Ferritin Total Bilirubin Direct Bilirubin AST ALT Alkaline Phosphatase Lactate Dehydrogenase C-Reactive Protein 40.40 H Serum Total Protein Total Protein Albumin Uxofh-0-Gjuixujtj Abnorm Protein Band 1 PEP Interpretation Crossmatch 10/14/16 10/14/16 10/14/16 15:02 15:33 15:33 WBC RBC Hgb Hct MCV MCHC RDW Plt Count Seg Neuts % (Manual) Lymphocytes % (Manual) Nucleated RBC % Seg Neutrophils # Man Lymphocytes # (Manual) Haptoglobin PT INR Fibrinogen Lupus Anticoagulant LA PTT Baseline POC ABG pH POC ABG pCO2 POC ABG pO2 Sodium Potassium Chloride Carbon Dioxide BUN Creatinine Glucose 19 L* POC Glucose < 40 L Lactic Acid 11.60 H* Uric Acid Calcium Phosphorus Iron TIBC Erythropoietin Ferritin Total Bilirubin Direct Bilirubin AST ALT Alkaline Phosphatase Lactate Dehydrogenase C-Reactive Protein Serum Total Protein Total Protein Albumin Xtiqf-9-Hqmravdje Abnorm Protein Band 1 PEP Interpretation Crossmatch 10/14/16 10/14/16 10/14/16 17:14 18:03 21:25 WBC RBC Hgb Hct MCV MCHC RDW Plt Count Seg Neuts % (Manual) Lymphocytes % (Manual) Nucleated RBC % Seg Neutrophils # Man Lymphocytes # (Manual) Haptoglobin PT 28.9 H INR 2.71 H Fibrinogen Lupus Anticoagulant LA PTT Baseline POC ABG pH POC ABG pCO2 POC ABG pO2 Sodium Potassium Chloride Carbon Dioxide BUN Creatinine Glucose POC Glucose < 40 L 57 L Lactic Acid Uric Acid Calcium Phosphorus Iron TIBC Erythropoietin Ferritin Total Bilirubin Direct Bilirubin AST ALT Alkaline Phosphatase Lactate Dehydrogenase C-Reactive Protein Serum Total Protein Total Protein Albumin Djngn-9-Qzxfdgeca Abnorm Protein Band 1 PEP Interpretation Crossmatch 10/15/16 10/15/16 10/15/16 05:32 05:35 05:35 WBC RBC 2.62 L Hgb 8.1 L Hct 25.8 L MCV 98 H D MCHC 31 L RDW 21.2 H Plt Count 61 L Seg Neuts % (Manual) 27.0 L Lymphocytes % (Manual) 10.0 L Nucleated RBC % 2.0 H Seg Neutrophils # Man Lymphocytes # (Manual) 0.8 L Haptoglobin PT INR Fibrinogen Lupus Anticoagulant LA PTT Baseline POC ABG pH POC ABG pCO2 POC ABG pO2 Sodium Potassium Chloride Carbon Dioxide BUN Creatinine Glucose POC Glucose < 40 L Lactic Acid Uric Acid Calcium Phosphorus Iron TIBC Erythropoietin Ferritin Total Bilirubin Direct Bilirubin AST ALT Alkaline Phosphatase Lactate Dehydrogenase 3871 H C-Reactive Protein Serum Total Protein Total Protein Albumin Bdpza-5-Oakhvgvvn Abnorm Protein Band 1 PEP Interpretation Crossmatch 10/15/16 10/15/16 10/15/16 05:35 05:35 05:35 WBC RBC Hgb Hct MCV MCHC RDW Plt Count Seg Neuts % (Manual) Lymphocytes % (Manual) Nucleated RBC % Seg Neutrophils # Man Lymphocytes # (Manual) Haptoglobin PT INR Fibrinogen Lupus Anticoagulant LA PTT Baseline POC ABG pH POC ABG pCO2 POC ABG pO2 Sodium 136 L Potassium 5.3 H D Chloride 91.4 L Carbon Dioxide 6 L* D BUN 57 H Creatinine 7.1 H Glucose 11 L* POC Glucose Lactic Acid 13.60 H* Uric Acid Calcium 7.7 L Phosphorus 10.10 H D Iron TIBC 166 L Erythropoietin Ferritin 9562.0 H Total Bilirubin Direct Bilirubin AST ALT Alkaline Phosphatase Lactate Dehydrogenase C-Reactive Protein Serum Total Protein Total Protein Albumin Ptnmk-0-Tlabuxddc Abnorm Protein Band 1 PEP Interpretation Crossmatch 10/15/16 10/15/16 10/15/16 05:51 06:22 06:52 WBC RBC Hgb Hct MCV MCHC RDW Plt Count Seg Neuts % (Manual) Lymphocytes % (Manual) Nucleated RBC % Seg Neutrophils # Man Lymphocytes # (Manual) Haptoglobin PT INR Fibrinogen Lupus Anticoagulant LA PTT Baseline POC ABG pH 7.189 L POC ABG pCO2 28.9 L POC ABG pO2 Sodium Potassium Chloride Carbon Dioxide BUN Creatinine Glucose POC Glucose 59 L 111 H Lactic Acid Uric Acid Calcium Phosphorus Iron TIBC Erythropoietin Ferritin Total Bilirubin Direct Bilirubin AST ALT Alkaline Phosphatase Lactate Dehydrogenase C-Reactive Protein Serum Total Protein Total Protein Albumin Oogmg-2-Oagxdbzyy Abnorm Protein Band 1 PEP Interpretation Crossmatch 10/15/16 10/15/16 10/15/16 08:00 09:57 11:42 WBC RBC Hgb Hct MCV MCHC RDW Plt Count Seg Neuts % (Manual) Lymphocytes % (Manual) Nucleated RBC % Seg Neutrophils # Man Lymphocytes # (Manual) Haptoglobin PT INR Fibrinogen Lupus Anticoagulant LA PTT Baseline POC ABG pH POC ABG pCO2 POC ABG pO2 Sodium Potassium Chloride Carbon Dioxide BUN Creatinine Glucose POC Glucose 63 L 143 H 203 H Lactic Acid Uric Acid Calcium Phosphorus Iron TIBC Erythropoietin Ferritin Total Bilirubin Direct Bilirubin AST ALT Alkaline Phosphatase Lactate Dehydrogenase C-Reactive Protein Serum Total Protein Total Protein Albumin Rtgrd-0-Cqagobylt Abnorm Protein Band 1 PEP Interpretation Crossmatch 10/15/16 10/15/16 10/15/16 12:00 12:00 13:00 WBC RBC Hgb Hct MCV MCHC RDW Plt Count Seg Neuts % (Manual) Lymphocytes % (Manual) Nucleated RBC % Seg Neutrophils # Man Lymphocytes # (Manual) Haptoglobin <15 L PT INR Fibrinogen Lupus Anticoagulant LA PTT Baseline POC ABG pH POC ABG pCO2 POC ABG pO2 Sodium Potassium Chloride Carbon Dioxide BUN Creatinine Glucose POC Glucose 136 H Lactic Acid 16.30 H* Uric Acid Calcium Phosphorus Iron TIBC Erythropoietin Ferritin Total Bilirubin Direct Bilirubin AST ALT Alkaline Phosphatase Lactate Dehydrogenase C-Reactive Protein Serum Total Protein Total Protein Albumin Emgsb-9-Wdrnrhgon Abnorm Protein Band 1 PEP Interpretation Crossmatch 10/15/16 10/15/16 10/15/16 14:06 15:15 16:23 WBC RBC Hgb Hct MCV MCHC RDW Plt Count Seg Neuts % (Manual) Lymphocytes % (Manual) Nucleated RBC % Seg Neutrophils # Man Lymphocytes # (Manual) Haptoglobin PT INR Fibrinogen Lupus Anticoagulant LA PTT Baseline POC ABG pH POC ABG pCO2 POC ABG pO2 Sodium Potassium Chloride Carbon Dioxide BUN Creatinine Glucose POC Glucose 132 H 64 L Lactic Acid 20.40 H* Uric Acid Calcium Phosphorus Iron TIBC Erythropoietin Ferritin Total Bilirubin Direct Bilirubin AST ALT Alkaline Phosphatase Lactate Dehydrogenase C-Reactive Protein Serum Total Protein Total Protein Albumin Euniz-2-Yspwcjgvn Abnorm Protein Band 1 PEP Interpretation Crossmatch 10/15/16 10/15/16 10/15/16 16:40 17:00 17:10 WBC RBC Hgb Hct MCV MCHC RDW Plt Count Seg Neuts % (Manual) Lymphocytes % (Manual) Nucleated RBC % Seg Neutrophils # Man Lymphocytes # (Manual) Haptoglobin PT INR Fibrinogen Lupus Anticoagulant LA PTT Baseline POC ABG pH 7.323 L POC ABG pCO2 25.8 L POC ABG pO2 135 H Sodium Potassium Chloride Carbon Dioxide BUN Creatinine Glucose POC Glucose 159 H Lactic Acid 20.20 H* Uric Acid Calcium Phosphorus Iron TIBC Erythropoietin Ferritin Total Bilirubin Direct Bilirubin AST ALT Alkaline Phosphatase Lactate Dehydrogenase C-Reactive Protein Serum Total Protein Total Protein Albumin Yhnmi-5-Hiyejuiii Abnorm Protein Band 1 PEP Interpretation Crossmatch 10/15/16 10/15/16 10/15/16 17:46 17:53 18:45 WBC RBC Hgb Hct MCV MCHC RDW Plt Count Seg Neuts % (Manual) Lymphocytes % (Manual) Nucleated RBC % Seg Neutrophils # Man Lymphocytes # (Manual) Haptoglobin PT INR Fibrinogen Lupus Anticoagulant LA PTT Baseline POC ABG pH POC ABG pCO2 POC ABG pO2 Sodium Potassium Chloride Carbon Dioxide BUN Creatinine Glucose POC Glucose 126 H 143 H Lactic Acid 21.40 H* Uric Acid Calcium Phosphorus Iron TIBC Erythropoietin Ferritin Total Bilirubin Direct Bilirubin AST ALT Alkaline Phosphatase Lactate Dehydrogenase C-Reactive Protein Serum Total Protein Total Protein Albumin Zxxoo-4-Tblsufjoc Abnorm Protein Band 1 PEP Interpretation Crossmatch 10/15/16 10/15/16 10/16/16 20:03 22:59 00:06 WBC RBC Hgb Hct MCV MCHC RDW Plt Count Seg Neuts % (Manual) Lymphocytes % (Manual) Nucleated RBC % Seg Neutrophils # Man Lymphocytes # (Manual) Haptoglobin PT INR Fibrinogen Lupus Anticoagulant LA PTT Baseline POC ABG pH POC ABG pCO2 POC ABG pO2 Sodium Potassium Chloride Carbon Dioxide BUN Creatinine Glucose POC Glucose 66 L 53 L 126 H Lactic Acid Uric Acid Calcium Phosphorus Iron TIBC Erythropoietin Ferritin Total Bilirubin Direct Bilirubin AST ALT Alkaline Phosphatase Lactate Dehydrogenase C-Reactive Protein Serum Total Protein Total Protein Albumin Cohou-8-Jlluczfzd Abnorm Protein Band 1 PEP Interpretation Crossmatch 10/16/16 10/16/16 10/16/16 01:03 03:55 04:00 WBC RBC Hgb Hct MCV MCHC RDW Plt Count Seg Neuts % (Manual) Lymphocytes % (Manual) Nucleated RBC % Seg Neutrophils # Man Lymphocytes # (Manual) Haptoglobin PT INR Fibrinogen Lupus Anticoagulant LA PTT Baseline POC ABG pH POC ABG pCO2 POC ABG pO2 Sodium Potassium Chloride Carbon Dioxide BUN Creatinine Glucose POC Glucose 107 H 260 H Lactic Acid 18.00 H* Uric Acid Calcium Phosphorus Iron TIBC Erythropoietin Ferritin Total Bilirubin Direct Bilirubin AST ALT Alkaline Phosphatase Lactate Dehydrogenase C-Reactive Protein Serum Total Protein Total Protein Albumin Tupyh-5-Tqicczfxp Abnorm Protein Band 1 PEP Interpretation Crossmatch 10/16/16 10/16/16 10/16/16 04:03 07:58 08:34 WBC RBC Hgb Hct MCV MCHC RDW Plt Count Seg Neuts % (Manual) Lymphocytes % (Manual) Nucleated RBC % Seg Neutrophils # Man Lymphocytes # (Manual) Haptoglobin PT INR Fibrinogen Lupus Anticoagulant LA PTT Baseline POC ABG pH 7.527 H POC ABG pCO2 32.9 L POC ABG pO2 119 H Sodium Potassium Chloride Carbon Dioxide BUN Creatinine Glucose POC Glucose 120 H 66 L Lactic Acid Uric Acid Calcium Phosphorus Iron TIBC Erythropoietin Ferritin Total Bilirubin Direct Bilirubin AST ALT Alkaline Phosphatase Lactate Dehydrogenase C-Reactive Protein Serum Total Protein Total Protein Albumin Wcfhr-2-Tdrvnharg Abnorm Protein Band 1 PEP Interpretation Crossmatch 10/16/16 10/16/16 10/16/16 09:13 10:06 10:57 WBC RBC Hgb Hct MCV MCHC RDW Plt Count Seg Neuts % (Manual) Lymphocytes % (Manual) Nucleated RBC % Seg Neutrophils # Man Lymphocytes # (Manual) Haptoglobin PT INR Fibrinogen Lupus Anticoagulant LA PTT Baseline POC ABG pH POC ABG pCO2 POC ABG pO2 Sodium Potassium Chloride Carbon Dioxide BUN Creatinine Glucose POC Glucose 147 H 137 H 140 H Lactic Acid Uric Acid Calcium Phosphorus Iron TIBC Erythropoietin Ferritin Total Bilirubin Direct Bilirubin AST ALT Alkaline Phosphatase Lactate Dehydrogenase C-Reactive Protein Serum Total Protein Total Protein Albumin Atvix-3-Uxvcfgyqu Abnorm Protein Band 1 PEP Interpretation Crossmatch 10/16/16 10/16/16 10/16/16 11:15 11:15 11:15 WBC 25.8 H RBC 2.30 L Hgb 7.0 L Hct 22.3 L MCV 97 H MCHC 31 L RDW 21.2 H Plt Count 42 L Seg Neuts % (Manual) Lymphocytes % (Manual) 3.0 L Nucleated RBC % 2.0 H Seg Neutrophils # Man 11.1 H Lymphocytes # (Manual) 0.8 L Haptoglobin PT INR Fibrinogen Lupus Anticoagulant LA PTT Baseline POC ABG pH POC ABG pCO2 POC ABG pO2 Sodium Potassium Chloride 81.7 L Carbon Dioxide 13 L D BUN 61 H Creatinine 6.2 H Glucose 171 H POC Glucose Lactic Acid 22.70 H* Uric Acid Calcium 7.1 L Phosphorus 9.10 H Iron TIBC Erythropoietin Ferritin Total Bilirubin Direct Bilirubin AST ALT Alkaline Phosphatase Lactate Dehydrogenase C-Reactive Protein Serum Total Protein Total Protein Albumin Gpnsr-2-Prrctepys Abnorm Protein Band 1 PEP Interpretation Crossmatch 10/16/16 10/16/16 10/16/16 15:10 15:50 18:11 WBC RBC Hgb Hct MCV MCHC RDW Plt Count Seg Neuts % (Manual) Lymphocytes % (Manual) Nucleated RBC % Seg Neutrophils # Man Lymphocytes # (Manual) Haptoglobin PT INR Fibrinogen Lupus Anticoagulant LA PTT Baseline POC ABG pH POC ABG pCO2 POC ABG pO2 Sodium Potassium Chloride Carbon Dioxide BUN Creatinine Glucose POC Glucose 47 L 164 H 58 L Lactic Acid Uric Acid Calcium Phosphorus Iron TIBC Erythropoietin Ferritin Total Bilirubin Direct Bilirubin AST ALT Alkaline Phosphatase Lactate Dehydrogenase C-Reactive Protein Serum Total Protein Total Protein Albumin Nnvzy-4-Uursgepto Abnorm Protein Band 1 PEP Interpretation Crossmatch 10/16/16 10/16/16 10/17/16 18:26 21:06 00:06 WBC RBC Hgb Hct MCV MCHC RDW Plt Count Seg Neuts % (Manual) Lymphocytes % (Manual) Nucleated RBC % Seg Neutrophils # Man Lymphocytes # (Manual) Haptoglobin PT INR Fibrinogen Lupus Anticoagulant LA PTT Baseline POC ABG pH POC ABG pCO2 POC ABG pO2 489 H Sodium Potassium Chloride Carbon Dioxide BUN Creatinine Glucose POC Glucose 52 L 120 H Lactic Acid Uric Acid Calcium Phosphorus Iron TIBC Erythropoietin Ferritin Total Bilirubin Direct Bilirubin AST ALT Alkaline Phosphatase Lactate Dehydrogenase C-Reactive Protein Serum Total Protein Total Protein Albumin Pmsjc-7-Txoquwjyn Abnorm Protein Band 1 PEP Interpretation Crossmatch 10/17/16 10/17/16 10/17/16 04:55 04:55 05:04 WBC 25.5 H RBC 2.23 L Hgb 6.6 L Hct 21.2 L MCV 95 H MCHC 31 L RDW 20.5 H Plt Count 35 L Seg Neuts % (Manual) 79.0 H Lymphocytes % (Manual) 0 L Nucleated RBC % Seg Neutrophils # Man 20.1 H Lymphocytes # (Manual) 0.0 L Haptoglobin PT INR Fibrinogen Lupus Anticoagulant LA PTT Baseline POC ABG pH POC ABG pCO2 27.2 L POC ABG pO2 162 H Sodium Potassium Chloride 91.5 L Carbon Dioxide 16 L BUN 45 H Creatinine 4.5 H Glucose 103 H POC Glucose Lactic Acid Uric Acid Calcium 6.9 L Phosphorus 5.80 H D Iron TIBC Erythropoietin Ferritin Total Bilirubin Direct Bilirubin AST ALT Alkaline Phosphatase Lactate Dehydrogenase C-Reactive Protein Serum Total Protein Total Protein Albumin Ekkeu-7-Rmafkkcat Abnorm Protein Band 1 PEP Interpretation Crossmatch 10/17/16 10/17/16 10/17/16 07:59 09:04 10:04 WBC RBC Hgb Hct MCV MCHC RDW Plt Count Seg Neuts % (Manual) Lymphocytes % (Manual) Nucleated RBC % Seg Neutrophils # Man Lymphocytes # (Manual) Haptoglobin PT INR Fibrinogen Lupus Anticoagulant LA PTT Baseline POC ABG pH POC ABG pCO2 POC ABG pO2 Sodium Potassium Chloride Carbon Dioxide BUN Creatinine Glucose POC Glucose 65 L 118 H Lactic Acid Uric Acid Calcium Phosphorus Iron TIBC Erythropoietin Ferritin Total Bilirubin Direct Bilirubin AST ALT Alkaline Phosphatase Lactate Dehydrogenase C-Reactive Protein Serum Total Protein Total Protein Albumin Bhkde-0-Rahenfgad Abnorm Protein Band 1 PEP Interpretation Crossmatch See Detail 10/17/16 10/17/16 10/17/16 11:52 13:08 15:42 WBC RBC Hgb Hct MCV MCHC RDW Plt Count Seg Neuts % (Manual) Lymphocytes % (Manual) Nucleated RBC % Seg Neutrophils # Man Lymphocytes # (Manual) Haptoglobin PT INR Fibrinogen Lupus Anticoagulant LA PTT Baseline POC ABG pH POC ABG pCO2 POC ABG pO2 Sodium Potassium Chloride Carbon Dioxide BUN Creatinine Glucose POC Glucose 125 H 106 H 55 L Lactic Acid Uric Acid Calcium Phosphorus Iron TIBC Erythropoietin Ferritin Total Bilirubin Direct Bilirubin AST ALT Alkaline Phosphatase Lactate Dehydrogenase C-Reactive Protein Serum Total Protein Total Protein Albumin Sgtsw-9-Uhouklhyr Abnorm Protein Band 1 PEP Interpretation Crossmatch 10/17/16 10/17/16 10/17/16 17:39 20:37 21:02 WBC RBC Hgb Hct MCV MCHC RDW Plt Count Seg Neuts % (Manual) Lymphocytes % (Manual) Nucleated RBC % Seg Neutrophils # Man Lymphocytes # (Manual) Haptoglobin PT INR Fibrinogen Lupus Anticoagulant LA PTT Baseline POC ABG pH POC ABG pCO2 28.2 L POC ABG pO2 Sodium Potassium Chloride Carbon Dioxide BUN Creatinine Glucose POC Glucose < 40 L 106 H Lactic Acid Uric Acid Calcium Phosphorus Iron TIBC Erythropoietin Ferritin Total Bilirubin Direct Bilirubin AST ALT Alkaline Phosphatase Lactate Dehydrogenase C-Reactive Protein Serum Total Protein Total Protein Albumin Yzypf-7-Aqbemsumf Abnorm Protein Band 1 PEP Interpretation Crossmatch 10/17/16 10/17/16 10/18/16 22:18 23:14 00:28 WBC RBC Hgb Hct MCV MCHC RDW Plt Count Seg Neuts % (Manual) Lymphocytes % (Manual) Nucleated RBC % Seg Neutrophils # Man Lymphocytes # (Manual) Haptoglobin PT INR Fibrinogen Lupus Anticoagulant LA PTT Baseline POC ABG pH POC ABG pCO2 POC ABG pO2 Sodium Potassium Chloride Carbon Dioxide BUN Creatinine Glucose POC Glucose 111 H 118 H 112 H Lactic Acid Uric Acid Calcium Phosphorus Iron TIBC Erythropoietin Ferritin Total Bilirubin Direct Bilirubin AST ALT Alkaline Phosphatase Lactate Dehydrogenase C-Reactive Protein Serum Total Protein Total Protein Albumin Dfaow-4-Qmmqwemhx Abnorm Protein Band 1 PEP Interpretation Crossmatch 10/18/16 10/18/16 10/18/16 05:00 05:00 05:15 WBC 27.3 H RBC 2.75 L Hgb 7.9 L Hct 25.3 L MCV MCHC 31 L RDW 20.7 H Plt Count 31 L Seg Neuts % (Manual) 87.0 H Lymphocytes % (Manual) 1.0 L Nucleated RBC % 1.0 H Seg Neutrophils # Man 23.8 H Lymphocytes # (Manual) 0.3 L Haptoglobin PT INR Fibrinogen Lupus Anticoagulant LA PTT Baseline POC ABG pH 7.466 H POC ABG pCO2 25.1 L POC ABG pO2 Sodium Potassium Chloride 88.7 L Carbon Dioxide 18 L BUN 66 H Creatinine 4.7 H Glucose POC Glucose Lactic Acid Uric Acid Calcium 6.1 L Phosphorus 7.30 H D Iron TIBC Erythropoietin Ferritin Total Bilirubin Direct Bilirubin AST ALT Alkaline Phosphatase Lactate Dehydrogenase C-Reactive Protein Serum Total Protein Total Protein Albumin Azxkj-9-Upnddrpiy Abnorm Protein Band 1 PEP Interpretation Crossmatch 10/18/16 10/18/16 10/18/16 07:15 07:44 09:07 WBC RBC Hgb Hct MCV MCHC RDW Plt Count Seg Neuts % (Manual) Lymphocytes % (Manual) Nucleated RBC % Seg Neutrophils # Man Lymphocytes # (Manual) Haptoglobin PT INR Fibrinogen Lupus Anticoagulant LA PTT Baseline POC ABG pH POC ABG pCO2 POC ABG pO2 Sodium Potassium Chloride Carbon Dioxide BUN Creatinine Glucose POC Glucose 64 L 156 H 117 H Lactic Acid Uric Acid Calcium Phosphorus Iron TIBC Erythropoietin Ferritin Total Bilirubin Direct Bilirubin AST ALT Alkaline Phosphatase Lactate Dehydrogenase C-Reactive Protein Serum Total Protein Total Protein Albumin Ykztd-3-Ahfhjaeps Abnorm Protein Band 1 PEP Interpretation Crossmatch 10/18/16 10/18/16 10/18/16 09:15 14:00 18:21 WBC RBC Hgb Hct MCV MCHC RDW Plt Count Seg Neuts % (Manual) Lymphocytes % (Manual) Nucleated RBC % Seg Neutrophils # Man Lymphocytes # (Manual) Haptoglobin PT INR Fibrinogen Lupus Anticoagulant LA PTT Baseline POC ABG pH POC ABG pCO2 POC ABG pO2 Sodium Potassium Chloride Carbon Dioxide BUN Creatinine Glucose POC Glucose 106 H 112 H Lactic Acid 14.30 H* Uric Acid Calcium Phosphorus Iron TIBC Erythropoietin Ferritin Total Bilirubin Direct Bilirubin AST ALT Alkaline Phosphatase Lactate Dehydrogenase C-Reactive Protein Serum Total Protein Total Protein Albumin Reoca-4-Ygwugyiud Abnorm Protein Band 1 PEP Interpretation Crossmatch 10/18/16 10/18/16 10/18/16 19:58 20:55 22:11 WBC RBC Hgb Hct MCV MCHC RDW Plt Count Seg Neuts % (Manual) Lymphocytes % (Manual) Nucleated RBC % Seg Neutrophils # Man Lymphocytes # (Manual) Haptoglobin PT INR Fibrinogen Lupus Anticoagulant LA PTT Baseline POC ABG pH POC ABG pCO2 POC ABG pO2 Sodium Potassium Chloride Carbon Dioxide BUN Creatinine Glucose POC Glucose 127 H 125 H 159 H Lactic Acid Uric Acid Calcium Phosphorus Iron TIBC Erythropoietin Ferritin Total Bilirubin Direct Bilirubin AST ALT Alkaline Phosphatase Lactate Dehydrogenase C-Reactive Protein Serum Total Protein Total Protein Albumin Wmqcc-2-Biiapjefk Abnorm Protein Band 1 PEP Interpretation Crossmatch 05/23/17 05/23/17 05/24/17 23:11 23:57 01:06 WBC RBC Hgb Hct MCV MCHC RDW Plt Count Seg Neuts % (Manual) Lymphocytes % (Manual) Nucleated RBC % Seg Neutrophils # Man Lymphocytes # (Manual) Haptoglobin PT INR Fibrinogen Lupus Anticoagulant LA PTT Baseline POC ABG pH POC ABG pCO2 POC ABG pO2 Sodium Potassium Chloride Carbon Dioxide BUN Creatinine Glucose POC Glucose 122 H 137 H 162 H Lactic Acid Uric Acid Calcium Phosphorus Iron TIBC Erythropoietin Ferritin Total Bilirubin Direct Bilirubin AST ALT Alkaline Phosphatase Lactate Dehydrogenase C-Reactive Protein Serum Total Protein Total Protein Albumin Plstv-7-Ynywaqbtj Abnorm Protein Band 1 PEP Interpretation Crossmatch 10/19/16 10/19/16 10/19/16 01:59 03:07 04:10 WBC RBC Hgb Hct MCV MCHC RDW Plt Count Seg Neuts % (Manual) Lymphocytes % (Manual) Nucleated RBC % Seg Neutrophils # Man Lymphocytes # (Manual) Haptoglobin PT INR Fibrinogen Lupus Anticoagulant LA PTT Baseline POC ABG pH POC ABG pCO2 POC ABG pO2 Sodium Potassium Chloride Carbon Dioxide BUN Creatinine Glucose POC Glucose 154 H 178 H 186 H Lactic Acid Uric Acid Calcium Phosphorus Iron TIBC Erythropoietin Ferritin Total Bilirubin Direct Bilirubin AST ALT Alkaline Phosphatase Lactate Dehydrogenase C-Reactive Protein Serum Total Protein Total Protein Albumin Xmgsk-7-Ttkfevndt Abnorm Protein Band 1 PEP Interpretation Crossmatch 10/19/16 10/19/16 10/19/16 05:14 05:15 05:47 WBC RBC Hgb Hct MCV MCHC RDW Plt Count Seg Neuts % (Manual) Lymphocytes % (Manual) Nucleated RBC % Seg Neutrophils # Man Lymphocytes # (Manual) Haptoglobin PT INR Fibrinogen Lupus Anticoagulant LA PTT Baseline POC ABG pH 7.581 H POC ABG pCO2 22.9 L POC ABG pO2 58 L Sodium Potassium Chloride Carbon Dioxide BUN Creatinine Glucose POC Glucose 197 H 204 H Lactic Acid Uric Acid Calcium Phosphorus Iron TIBC Erythropoietin Ferritin Total Bilirubin Direct Bilirubin AST ALT Alkaline Phosphatase Lactate Dehydrogenase C-Reactive Protein Serum Total Protein Total Protein Albumin Wyues-2-Xffsdvrzj Abnorm Protein Band 1 PEP Interpretation Crossmatch 10/19/16 10/19/16 10/19/16 06:00 06:00 07:51 WBC 23.0 H RBC 2.54 L Hgb 7.5 L Hct 23.0 L MCV MCHC RDW 20.7 H Plt Count 25 L Seg Neuts % (Manual) 91.0 H Lymphocytes % (Manual) 2.0 L Nucleated RBC % 1.0 H Seg Neutrophils # Man 20.9 H Lymphocytes # (Manual) 0.5 L Haptoglobin PT INR Fibrinogen Lupus Anticoagulant LA PTT Baseline POC ABG pH POC ABG pCO2 POC ABG pO2 Sodium Potassium Chloride 88.7 L Carbon Dioxide 21 L BUN 70 H Creatinine 3.9 H Glucose 189 H POC Glucose 145 H Lactic Acid Uric Acid Calcium 5.6 L* Phosphorus 6.30 H Iron TIBC Erythropoietin Ferritin Total Bilirubin Direct Bilirubin AST ALT Alkaline Phosphatase Lactate Dehydrogenase C-Reactive Protein Serum Total Protein Total Protein Albumin Dotxc-0-Oksgbyktf Abnorm Protein Band 1 PEP Interpretation Crossmatch 10/19/16 10/19/16 10/19/16 09:14 10:01 12:14 WBC RBC Hgb Hct MCV MCHC RDW Plt Count Seg Neuts % (Manual) Lymphocytes % (Manual) Nucleated RBC % Seg Neutrophils # Man Lymphocytes # (Manual) Haptoglobin PT INR Fibrinogen Lupus Anticoagulant LA PTT Baseline POC ABG pH POC ABG pCO2 POC ABG pO2 Sodium Potassium Chloride Carbon Dioxide BUN Creatinine Glucose POC Glucose 173 H 153 H 180 H Lactic Acid Uric Acid Calcium Phosphorus Iron TIBC Erythropoietin Ferritin Total Bilirubin Direct Bilirubin AST ALT Alkaline Phosphatase Lactate Dehydrogenase C-Reactive Protein Serum Total Protein Total Protein Albumin Rhsvt-8-Khjqppjew Abnorm Protein Band 1 PEP Interpretation Crossmatch 10/19/16 10/19/16 10/19/16 14:15 16:38 20:27 WBC RBC Hgb Hct MCV MCHC RDW Plt Count Seg Neuts % (Manual) Lymphocytes % (Manual) Nucleated RBC % Seg Neutrophils # Man Lymphocytes # (Manual) Haptoglobin PT INR Fibrinogen Lupus Anticoagulant LA PTT Baseline POC ABG pH POC ABG pCO2 POC ABG pO2 Sodium Potassium Chloride Carbon Dioxide BUN Creatinine Glucose POC Glucose 194 H 202 H Lactic Acid Uric Acid Calcium Phosphorus Iron TIBC Erythropoietin 148.2 H Ferritin Total Bilirubin Direct Bilirubin AST ALT Alkaline Phosphatase Lactate Dehydrogenase C-Reactive Protein Serum Total Protein Total Protein Albumin Wbokn-4-Yupeqowhd Abnorm Protein Band 1 PEP Interpretation Crossmatch 10/19/16 10/20/16 10/20/16 23:27 04:06 05:00 WBC RBC Hgb Hct MCV MCHC RDW Plt Count Seg Neuts % (Manual) Lymphocytes % (Manual) Nucleated RBC % Seg Neutrophils # Man Lymphocytes # (Manual) Haptoglobin PT INR Fibrinogen Lupus Anticoagulant LA PTT Baseline POC ABG pH POC ABG pCO2 POC ABG pO2 Sodium Potassium Chloride 88.8 L Carbon Dioxide BUN 93 H Creatinine 4.3 H Glucose 204 H POC Glucose 201 H 200 H Lactic Acid Uric Acid Calcium 5.2 L* Phosphorus Iron TIBC Erythropoietin Ferritin Total Bilirubin Direct Bilirubin AST ALT Alkaline Phosphatase Lactate Dehydrogenase C-Reactive Protein Serum Total Protein Total Protein Albumin Lsfml-8-Xudsstmae Abnorm Protein Band 1 PEP Interpretation Crossmatch 10/20/16 10/20/16 10/20/16 05:16 06:00 07:43 WBC 24.8 H RBC 2.52 L Hgb 7.4 L Hct 22.9 L MCV MCHC RDW 19.9 H Plt Count 23 L Seg Neuts % (Manual) 97.0 H Lymphocytes % (Manual) 1.0 L Nucleated RBC % 9.0 H Seg Neutrophils # Man 24.1 H Lymphocytes # (Manual) 0.2 L Haptoglobin PT INR Fibrinogen Lupus Anticoagulant LA PTT Baseline POC ABG pH 7.463 H POC ABG pCO2 POC ABG pO2 157 H Sodium Potassium Chloride Carbon Dioxide BUN Creatinine Glucose POC Glucose 192 H Lactic Acid Uric Acid Calcium Phosphorus Iron TIBC Erythropoietin Ferritin Total Bilirubin Direct Bilirubin AST ALT Alkaline Phosphatase Lactate Dehydrogenase C-Reactive Protein Serum Total Protein Total Protein Albumin Eubjo-1-Khpgpeedn Abnorm Protein Band 1 PEP Interpretation Crossmatch 10/20/16 10/20/16 10/20/16 12:11 15:32 21:23 WBC RBC Hgb Hct MCV MCHC RDW Plt Count Seg Neuts % (Manual) Lymphocytes % (Manual) Nucleated RBC % Seg Neutrophils # Man Lymphocytes # (Manual) Haptoglobin PT INR Fibrinogen Lupus Anticoagulant LA PTT Baseline POC ABG pH POC ABG pCO2 POC ABG pO2 Sodium Potassium Chloride Carbon Dioxide BUN Creatinine Glucose POC Glucose 172 H 216 H 271 H Lactic Acid Uric Acid Calcium Phosphorus Iron TIBC Erythropoietin Ferritin Total Bilirubin Direct Bilirubin AST ALT Alkaline Phosphatase Lactate Dehydrogenase C-Reactive Protein Serum Total Protein Total Protein Albumin Nfgvc-8-Gshhxqbvv Abnorm Protein Band 1 PEP Interpretation Crossmatch 10/20/16 10/21/16 10/21/16 23:49 03:53 04:58 WBC RBC Hgb Hct MCV MCHC RDW Plt Count Seg Neuts % (Manual) Lymphocytes % (Manual) Nucleated RBC % Seg Neutrophils # Man Lymphocytes # (Manual) Haptoglobin PT INR Fibrinogen Lupus Anticoagulant LA PTT Baseline POC ABG pH 7.459 H POC ABG pCO2 POC ABG pO2 113 H Sodium 136 L Potassium 2.8 L* D Chloride 91.6 L Carbon Dioxide BUN 62 H Creatinine 2.8 H Glucose 236 H POC Glucose 317 H Lactic Acid Uric Acid Calcium 6.2 L D Phosphorus Iron TIBC Erythropoietin Ferritin Total Bilirubin 2.70 H Direct Bilirubin AST 73 H ALT 57 H Alkaline Phosphatase 158 H Lactate Dehydrogenase C-Reactive Protein Serum Total Protein Total Protein 4.9 L Albumin 2.6 L Gbpyx-8-Liqdhwrzb Abnorm Protein Band 1 PEP Interpretation Crossmatch 10/21/16 10/21/16 10/21/16 05:25 07:11 10:30 WBC 28.1 H RBC 2.36 L Hgb 7.0 L Hct 21.6 L MCV MCHC RDW 20.0 H Plt Count 14 L* Seg Neuts % (Manual) 92.0 H Lymphocytes % (Manual) 0 L Nucleated RBC % 5.0 H Seg Neutrophils # Man 25.9 H Lymphocytes # (Manual) 0.0 L Haptoglobin PT INR Fibrinogen Lupus Anticoagulant LA PTT Baseline POC ABG pH POC ABG pCO2 POC ABG pO2 Sodium Potassium Chloride Carbon Dioxide BUN Creatinine Glucose POC Glucose 237 H 206 H Lactic Acid Uric Acid Calcium Phosphorus Iron TIBC Erythropoietin Ferritin Total Bilirubin Direct Bilirubin AST ALT Alkaline Phosphatase Lactate Dehydrogenase C-Reactive Protein Serum Total Protein Total Protein Albumin Njjcv-9-Uaaoanwfw Abnorm Protein Band 1 PEP Interpretation Crossmatch 10/21/16 10/21/16 10/21/16 11:25 12:31 16:33 WBC RBC Hgb Hct MCV MCHC RDW Plt Count Seg Neuts % (Manual) Lymphocytes % (Manual) Nucleated RBC % Seg Neutrophils # Man Lymphocytes # (Manual) Haptoglobin PT 49.1 H INR 5.28 H* Fibrinogen Lupus Anticoagulant LA PTT Baseline POC ABG pH POC ABG pCO2 POC ABG pO2 Sodium Potassium Chloride Carbon Dioxide BUN Creatinine Glucose POC Glucose 145 H 151 H Lactic Acid Uric Acid Calcium Phosphorus Iron TIBC Erythropoietin Ferritin Total Bilirubin Direct Bilirubin AST ALT Alkaline Phosphatase Lactate Dehydrogenase C-Reactive Protein Serum Total Protein Total Protein Albumin Wyzvb-8-Wepkgcwfy Abnorm Protein Band 1 PEP Interpretation Crossmatch 10/21/16 10/22/16 10/22/16 19:53 00:00 05:23 WBC RBC Hgb Hct MCV MCHC RDW Plt Count Seg Neuts % (Manual) Lymphocytes % (Manual) Nucleated RBC % Seg Neutrophils # Man Lymphocytes # (Manual) Haptoglobin PT INR Fibrinogen Lupus Anticoagulant LA PTT Baseline POC ABG pH POC ABG pCO2 POC ABG pO2 Sodium Potassium Chloride Carbon Dioxide BUN Creatinine Glucose POC Glucose 170 H 168 H 131 H Lactic Acid Uric Acid Calcium Phosphorus Iron TIBC Erythropoietin Ferritin Total Bilirubin Direct Bilirubin AST ALT Alkaline Phosphatase Lactate Dehydrogenase C-Reactive Protein Serum Total Protein Total Protein Albumin Qwpdi-7-Xxtirnses Abnorm Protein Band 1 PEP Interpretation Crossmatch 10/22/16 10/22/16 10/22/16 05:25 05:35 13:03 WBC RBC Hgb Hct MCV MCHC RDW Plt Count Seg Neuts % (Manual) Lymphocytes % (Manual) Nucleated RBC % Seg Neutrophils # Man Lymphocytes # (Manual) Haptoglobin PT INR Fibrinogen Lupus Anticoagulant LA PTT Baseline POC ABG pH 7.462 H POC ABG pCO2 POC ABG pO2 Sodium 135 L Potassium 3.0 L Chloride 88.5 L Carbon Dioxide BUN 84 H Creatinine 3.4 H Glucose 124 H POC Glucose 164 H Lactic Acid Uric Acid Calcium 5.9 L* Phosphorus Iron TIBC Erythropoietin Ferritin Total Bilirubin 2.00 H Direct Bilirubin AST 85 H ALT Alkaline Phosphatase 199 H Lactate Dehydrogenase C-Reactive Protein Serum Total Protein Total Protein 5.0 L Albumin 2.5 L Ycdby-9-Obuhosmar Abnorm Protein Band 1 PEP Interpretation Crossmatch 10/22/16 10/22/16 10/23/16 17:14 23:16 04:47 WBC RBC Hgb Hct MCV MCHC RDW Plt Count Seg Neuts % (Manual) Lymphocytes % (Manual) Nucleated RBC % Seg Neutrophils # Man Lymphocytes # (Manual) Haptoglobin PT INR Fibrinogen Lupus Anticoagulant LA PTT Baseline POC ABG pH 7.476 H POC ABG pCO2 POC ABG pO2 108 H Sodium Potassium Chloride Carbon Dioxide BUN Creatinine Glucose POC Glucose 188 H 167 H Lactic Acid Uric Acid Calcium Phosphorus Iron TIBC Erythropoietin Ferritin Total Bilirubin Direct Bilirubin AST ALT Alkaline Phosphatase Lactate Dehydrogenase C-Reactive Protein Serum Total Protein Total Protein Albumin Tqydy-4-Igfcgiyyo Abnorm Protein Band 1 PEP Interpretation Crossmatch 10/23/16 10/23/16 10/23/16 05:49 07:00 07:12 WBC 24.2 H RBC 2.27 L Hgb 7.0 L Hct 21.1 L MCV MCHC RDW 19.7 H Plt Count 35 L D Seg Neuts % (Manual) Lymphocytes % (Manual) Nucleated RBC % Seg Neutrophils # Man Lymphocytes # (Manual) Haptoglobin PT INR Fibrinogen Lupus Anticoagulant LA PTT Baseline POC ABG pH POC ABG pCO2 POC ABG pO2 Sodium Potassium 3.5 L Chloride 95.7 L Carbon Dioxide BUN 55 H Creatinine 2.7 H Glucose 103 H POC Glucose 106 H Lactic Acid Uric Acid Calcium 7.1 L D Phosphorus Iron TIBC Erythropoietin Ferritin Total Bilirubin Direct Bilirubin AST ALT Alkaline Phosphatase Lactate Dehydrogenase C-Reactive Protein Serum Total Protein Total Protein Albumin Nyirc-0-Lxwlcgmyy Abnorm Protein Band 1 PEP Interpretation Crossmatch 10/24/16 10/24/16 10/24/16 00:12 05:16 07:00 WBC 17.9 H RBC 2.12 L Hgb 6.5 L Hct 19.9 L* MCV MCHC RDW 19.3 H Plt Count 44 L Seg Neuts % (Manual) Lymphocytes % (Manual) Nucleated RBC % Seg Neutrophils # Man Lymphocytes # (Manual) Haptoglobin PT INR Fibrinogen Lupus Anticoagulant LA PTT Baseline POC ABG pH POC ABG pCO2 POC ABG pO2 Sodium Potassium Chloride Carbon Dioxide BUN Creatinine Glucose POC Glucose 116 H 135 H Lactic Acid Uric Acid Calcium Phosphorus Iron TIBC Erythropoietin Ferritin Total Bilirubin Direct Bilirubin AST ALT Alkaline Phosphatase Lactate Dehydrogenase C-Reactive Protein Serum Total Protein Total Protein Albumin Wvrce-4-Rinypvpes Abnorm Protein Band 1 PEP Interpretation Crossmatch 10/24/16 10/24/16 10/24/16 07:00 11:45 12:12 WBC RBC Hgb Hct MCV MCHC RDW Plt Count Seg Neuts % (Manual) Lymphocytes % (Manual) Nucleated RBC % Seg Neutrophils # Man Lymphocytes # (Manual) Haptoglobin PT INR Fibrinogen Lupus Anticoagulant LA PTT Baseline POC ABG pH POC ABG pCO2 POC ABG pO2 Sodium Potassium Chloride 92.9 L Carbon Dioxide BUN 74 H Creatinine 3.3 H Glucose 136 H POC Glucose 177 H Lactic Acid Uric Acid Calcium 6.6 L Phosphorus Iron TIBC Erythropoietin Ferritin Total Bilirubin 2.10 H Direct Bilirubin AST 68 H ALT Alkaline Phosphatase 224 H Lactate Dehydrogenase C-Reactive Protein Serum Total Protein Total Protein 4.8 L Albumin 2.3 L Kqnwz-8-Qlapdfsit Abnorm Protein Band 1 PEP Interpretation Crossmatch See Detail 10/24/16 10/24/16 10/24/16 16:30 16:30 17:28 WBC RBC Hgb Hct MCV MCHC RDW Plt Count Seg Neuts % (Manual) Lymphocytes % (Manual) Nucleated RBC % Seg Neutrophils # Man Lymphocytes # (Manual) Haptoglobin PT INR Fibrinogen Lupus Anticoagulant LA PTT Baseline POC ABG pH POC ABG pCO2 POC ABG pO2 Sodium Potassium Chloride Carbon Dioxide BUN Creatinine Glucose POC Glucose 128 H Lactic Acid 3.00 H* Uric Acid Calcium Phosphorus Iron TIBC Erythropoietin Ferritin Total Bilirubin Direct Bilirubin AST ALT Alkaline Phosphatase Lactate Dehydrogenase C-Reactive Protein 7.40 H Serum Total Protein Total Protein Albumin Byqvq-6-Tppmawicg Abnorm Protein Band 1 PEP Interpretation Crossmatch 10/24/16 10/24/16 10/25/16 18:40 23:32 05:00 WBC 17.5 H RBC 2.99 L Hgb 9.1 L Hct 26.9 L D MCV MCHC RDW 17.7 H Plt Count 53 L Seg Neuts % (Manual) Lymphocytes % (Manual) Nucleated RBC % Seg Neutrophils # Man Lymphocytes # (Manual) Haptoglobin PT INR Fibrinogen Lupus Anticoagulant LA PTT Baseline POC ABG pH POC ABG pCO2 POC ABG pO2 Sodium Potassium Chloride Carbon Dioxide BUN Creatinine Glucose POC Glucose 140 H Lactic Acid 3.10 H* Uric Acid Calcium Phosphorus Iron TIBC Erythropoietin Ferritin Total Bilirubin Direct Bilirubin AST ALT Alkaline Phosphatase Lactate Dehydrogenase C-Reactive Protein Serum Total Protein Total Protein Albumin Bggun-8-Mxlmgdifu Abnorm Protein Band 1 PEP Interpretation Crossmatch 10/25/16 10/25/16 10/25/16 05:00 05:22 11:58 WBC RBC Hgb Hct MCV MCHC RDW Plt Count Seg Neuts % (Manual) Lymphocytes % (Manual) Nucleated RBC % Seg Neutrophils # Man Lymphocytes # (Manual) Haptoglobin PT INR Fibrinogen Lupus Anticoagulant LA PTT Baseline POC ABG pH POC ABG pCO2 POC ABG pO2 Sodium Potassium Chloride 91.6 L Carbon Dioxide BUN 89 H Creatinine 3.9 H Glucose 150 H POC Glucose 164 H 189 H Lactic Acid Uric Acid Calcium 6.9 L Phosphorus Iron TIBC Erythropoietin Ferritin Total Bilirubin Direct Bilirubin AST ALT Alkaline Phosphatase Lactate Dehydrogenase C-Reactive Protein Serum Total Protein Total Protein Albumin Nwnsb-1-Pksgznrwg Abnorm Protein Band 1 PEP Interpretation Crossmatch 10/25/16 10/25/16 10/26/16 17:56 23:12 04:00 WBC RBC Hgb Hct MCV MCHC RDW Plt Count Seg Neuts % (Manual) Lymphocytes % (Manual) Nucleated RBC % Seg Neutrophils # Man Lymphocytes # (Manual) Haptoglobin PT INR Fibrinogen Lupus Anticoagulant LA PTT Baseline POC ABG pH POC ABG pCO2 POC ABG pO2 Sodium 135 L Potassium Chloride 90.7 L Carbon Dioxide BUN 64 H Creatinine 2.9 H Glucose 132 H POC Glucose 156 H 133 H Lactic Acid Uric Acid Calcium 7.3 L Phosphorus Iron TIBC Erythropoietin Ferritin Total Bilirubin Direct Bilirubin AST ALT Alkaline Phosphatase Lactate Dehydrogenase C-Reactive Protein Serum Total Protein Total Protein Albumin Lfftd-2-Sbdqwltzh Abnorm Protein Band 1 PEP Interpretation Crossmatch 10/26/16 10/26/16 05:14 06:15 WBC 18.6 H RBC 3.15 L Hgb 9.6 L Hct 29.0 L MCV MCHC RDW 17.8 H Plt Count 71 L Seg Neuts % (Manual) 85.0 H Lymphocytes % (Manual) 1.0 L Nucleated RBC % Seg Neutrophils # Man 15.8 H Lymphocytes # (Manual) 0.2 L Haptoglobin PT INR Fibrinogen Lupus Anticoagulant LA PTT Baseline POC ABG pH POC ABG pCO2 POC ABG pO2 Sodium Potassium Chloride Carbon Dioxide BUN Creatinine Glucose POC Glucose 130 H Lactic Acid Uric Acid Calcium Phosphorus Iron TIBC Erythropoietin Ferritin Total Bilirubin Direct Bilirubin AST ALT Alkaline Phosphatase Lactate Dehydrogenase C-Reactive Protein Serum Total Protein Total Protein Albumin Jrxna-3-Gyradmzld Abnorm Protein Band 1 PEP Interpretation Crossmatch Allied health notes reviewed: RT
--- NOTE | 2016-10-26 12:02 | Progress Note ---
Assessment and Plan 61 YO M Hx HTN admitted 10/13 w/ sepsis w/ bacteremia, severe metabolic acidosis , RAJESH requiring emergent HD, severe pancytopenia, ? DIC vs. HUS vs. TTP on Plasmapheresis and acute respiratory failure with hypoxia s/p intubation. There has not been cleared documented episode of cardiac arrest but pt was hypotensive during admission. On exam eyes open to stimlation, stuporous MS poor concentration, paucity of speech, intact brainstem reflexes but not able to follow midline/peripheral commands w/ grossly intact motor-sensory exam as withdraws from pain in UE but triple flexion LE but otherwise grossly intact symmetric neurologic exam, consistent with toxic metabolic infectious derangement as the etiology for neurologic decompensation. CTH 10/13 vague L anterior internal capsule hypodensities and chronic lacunes L brainstem and L periventricular white matter. B12/TSH/NH4 normal. MRI brain reveals b/l scattered subcortical/ cortical ischemia w/ T2 hyperintensities predominantly in the posterior regions and watershed areas suspicious for PRES vs. watershed infarct with slight hemorrhagic transformation but no herniation/mass effect/midline shift. No Stone dispensed d/t RAJESH. TTE w/o endocarditis/thrombus. Recommendations: 1. Check f/u CTH and CTA H/N 2. Cont Infectious work up/medical management for UTI, PNA, cellulitis, bacteremia, etc. 3. Avoid hyponatremia, hypo/hyper-calcemia, hypo/hyperglycemia, acidosis, hypoxia/hypoxemia, hypercarbia/hypercapnia 4. Avoid institution of any psychoactive medications (e.g. antihistamines, anticholinergics, BZD, hypnotics, opiates) as able unless low doses of low potency antipsychotic needed for behavioral issues complicating medical care 5. Thiamine/Folate/CIWA protocol accordingly for any hx obtained to suggest EtOH withdrawal 6. Cont home meds-there is no neurologic indication to change Subjective Date of service: 10/26/16 Principal diagnosis: Sepsis Syndrome; MAHA; RAJESH; CHF; TTP Interval history: MRIs completed over weekend. Objective - Vital Sign Vital Signs - 12hr 10/26/16 10/26/16 10/26/16 00:00 00:08 00:15 Temperature 99.6 F Pulse Rate 77 79 82 Pulse Rate [ From Monitor] Respiratory 17 21 19 Rate Blood Pressure 146/88 146/88 170/102 O2 Sat by Pulse 95 99 95 Oximetry 10/26/16 10/26/16 10/26/16 00:30 00:45 01:00 Temperature Pulse Rate 78 76 78 Pulse Rate [ From Monitor] Respiratory 19 18 18 Rate Blood Pressure 144/91 144/86 145/87 O2 Sat by Pulse 97 96 95 Oximetry 10/26/16 10/26/16 10/26/16 01:15 01:30 01:45 Temperature Pulse Rate 78 77 81 Pulse Rate [ From Monitor] Respiratory 19 18 19 Rate Blood Pressure 147/87 148/90 153/97 O2 Sat by Pulse 97 96 Oximetry 10/26/16 10/26/16 10/26/16 02:00 02:15 02:30 Temperature Pulse Rate 78 75 76 Pulse Rate [ From Monitor] Respiratory 19 18 17 Rate Blood Pressure 146/87 140/82 123/72 O2 Sat by Pulse 95 97 Oximetry 10/26/16 10/26/16 10/26/16 02:45 03:00 03:15 Temperature Pulse Rate 77 84 78 Pulse Rate [ From Monitor] Respiratory 18 18 19 Rate Blood Pressure 157/94 161/140 151/93 O2 Sat by Pulse 97 98 97 Oximetry 10/26/16 10/26/16 10/26/16 03:30 03:45 04:00 Temperature 99.0 F Pulse Rate 77 75 76 Pulse Rate [ 79 From Monitor] Respiratory 18 15 18 Rate Blood Pressure 149/92 147/91 144/90 O2 Sat by Pulse 99 96 97 Oximetry 10/26/16 10/26/16 10/26/16 04:15 04:30 04:45 Temperature Pulse Rate 75 76 75 Pulse Rate [ From Monitor] Respiratory 18 18 19 Rate Blood Pressure 139/87 147/93 143/89 O2 Sat by Pulse 97 97 97 Oximetry 10/26/16 10/26/16 10/26/16 05:00 05:10 05:15 Temperature Pulse Rate 76 77 77 Pulse Rate [ From Monitor] Respiratory 18 19 Rate Blood Pressure 146/88 146/88 141/85 O2 Sat by Pulse 98 100 96 Oximetry 10/26/16 10/26/16 10/26/16 05:30 05:45 06:00 Temperature Pulse Rate 77 74 75 Pulse Rate [ From Monitor] Respiratory 21 18 15 Rate Blood Pressure 150/90 141/83 135/84 O2 Sat by Pulse 97 96 98 Oximetry 10/26/16 10/26/16 10/26/16 06:15 06:30 06:45 Temperature Pulse Rate 78 80 74 Pulse Rate [ From Monitor] Respiratory 18 19 15 Rate Blood Pressure 142/94 138/86 142/86 O2 Sat by Pulse 97 98 98 Oximetry 10/26/16 10/26/16 10/26/16 07:00 07:15 07:30 Temperature Pulse Rate 77 77 75 Pulse Rate [ From Monitor] Respiratory 16 17 16 Rate Blood Pressure 148/90 158/98 145/92 O2 Sat by Pulse 97 95 Oximetry 10/26/16 10/26/16 10/26/16 07:45 08:00 08:10 Temperature 99.3 F Pulse Rate 75 77 77 Pulse Rate [ From Monitor] Respiratory 16 15 Rate Blood Pressure 149/93 156/97 145/92 O2 Sat by Pulse 95 97 99 Oximetry 10/26/16 10/26/16 10/26/16 08:15 08:30 08:45 Temperature Pulse Rate 77 76 74 Pulse Rate [ From Monitor] Respiratory 16 15 14 Rate Blood Pressure 151/96 144/90 138/89 O2 Sat by Pulse 95 95 98 Oximetry 10/26/16 10/26/16 10/26/16 09:00 09:15 09:20 Temperature Pulse Rate 74 78 79 Pulse Rate [ From Monitor] Respiratory 15 14 Rate Blood Pressure 138/87 146/98 138/87 O2 Sat by Pulse 96 Oximetry 10/26/16 10:03 Temperature Pulse Rate 71 Pulse Rate [ From Monitor] Respiratory Rate Blood Pressure O2 Sat by Pulse Oximetry - General Apperance Constitutional: acutely ill, chronically ill - EENT EENT: ATNC, PERRL, hearing intact - Respiratory Respiratory: no respiratory distress, decreased breath sounds - Cardiovascular Cardiovascular: regular rate Extremities: no peripheral edema bilat, no clubbing, cyanosis, no inflammation, no ischemia or petechiae - Gastrointestinal Gastrointestinal: normoactive bowel sounds, soft, non-distended - Integumentary Integumentary: normal - Neurologic Cranial nerve examination: PERRL, VFF, face symmetric, Intact Vestibulo-ocular r , intact corneal reflex Speech examination: other (paucity of speech intubated not following commands) Detailed motor examination: other (triple flexion LE) Motor examination - right side: 2/5: biceps, triceps, wrist flexion, wrist extension, admissions coordinator Motor examination - left side: 2/5: biceps, triceps, wrist flexion, wrist extension, admissions coordinator Detailed sensory examination: intact, pain (withdrawal in UE) Reflex and gait examination: intact Reflexes: 0: ankle, 1+: bicep, knee, tricep - Musculoskeletal Musculoskeletal: no fluid collection, no pain, normal range of motion - Psychiatric Psychiatric: agitated - Laboratory Findings CBC and BMP: 10/26/16 06:15 10/26/16 04:00 Abnormal Lab Findings: Abnormal Labs 10/13/16 10/13/16 10/13/16 14:50 21:40 22:05 WBC RBC Hgb Hct MCV MCHC RDW Plt Count Seg Neuts % (Manual) Lymphocytes % (Manual) Nucleated RBC % Seg Neutrophils # Man Lymphocytes # (Manual) Haptoglobin PT INR Fibrinogen Lupus Anticoagulant LA PTT Baseline POC ABG pH POC ABG pCO2 POC ABG pO2 Sodium Potassium Chloride Carbon Dioxide BUN Creatinine Glucose POC Glucose 52 L 43 L Lactic Acid Uric Acid Calcium Phosphorus Iron TIBC Erythropoietin Ferritin Total Bilirubin Direct Bilirubin AST ALT Alkaline Phosphatase Lactate Dehydrogenase C-Reactive Protein Serum Total Protein 5.6 L Total Protein Albumin 2.2 L Kygey-9-Gezghhung 0.5 H Abnorm Protein Band 1 1.4 H PEP Interpretation see below H Crossmatch 10/13/16 10/14/16 10/14/16 23:18 03:00 03:00 WBC RBC Hgb Hct MCV MCHC RDW Plt Count Seg Neuts % (Manual) Lymphocytes % (Manual) Nucleated RBC % Seg Neutrophils # Man Lymphocytes # (Manual) Haptoglobin PT INR Fibrinogen Lupus Anticoagulant see below H LA PTT Baseline 55 H POC ABG pH POC ABG pCO2 POC ABG pO2 Sodium Potassium Chloride Carbon Dioxide BUN Creatinine Glucose POC Glucose 113 H Lactic Acid Uric Acid Calcium Phosphorus Iron TIBC Erythropoietin Ferritin Total Bilirubin Direct Bilirubin AST ALT Alkaline Phosphatase Lactate Dehydrogenase 406 H C-Reactive Protein Serum Total Protein Total Protein Albumin Mgjux-0-Diensrvzl Abnorm Protein Band 1 PEP Interpretation Crossmatch 10/14/16 10/14/16 10/14/16 03:00 03:00 04:34 WBC 1.3 L* RBC 2.33 L Hgb 7.3 L Hct 21.7 L MCV MCHC RDW 19.8 H Plt Count 99 L Seg Neuts % (Manual) Lymphocytes % (Manual) 3.0 L Nucleated RBC % Seg Neutrophils # Man 0.9 L Lymphocytes # (Manual) 0.0 L Haptoglobin PT INR Fibrinogen Lupus Anticoagulant LA PTT Baseline POC ABG pH POC ABG pCO2 POC ABG pO2 Sodium Potassium Chloride Carbon Dioxide 18 L BUN 73 H Creatinine 9.8 H Glucose 59 L POC Glucose Lactic Acid Uric Acid 8.0 H Calcium 8.2 L Phosphorus 6.60 H Iron 13 L TIBC 160 L Erythropoietin Ferritin Total Bilirubin Direct Bilirubin AST ALT Alkaline Phosphatase Lactate Dehydrogenase C-Reactive Protein Serum Total Protein Total Protein Albumin Cvzte-8-Ojryhszxl Abnorm Protein Band 1 PEP Interpretation Crossmatch 10/14/16 10/14/16 10/14/16 05:27 06:29 07:34 WBC RBC Hgb Hct MCV MCHC RDW Plt Count Seg Neuts % (Manual) Lymphocytes % (Manual) Nucleated RBC % Seg Neutrophils # Man Lymphocytes # (Manual) Haptoglobin PT INR Fibrinogen Lupus Anticoagulant LA PTT Baseline POC ABG pH POC ABG pCO2 POC ABG pO2 Sodium Potassium Chloride Carbon Dioxide BUN Creatinine Glucose POC Glucose < 40 L 63 L < 40 L Lactic Acid Uric Acid Calcium Phosphorus Iron TIBC Erythropoietin Ferritin Total Bilirubin Direct Bilirubin AST ALT Alkaline Phosphatase Lactate Dehydrogenase C-Reactive Protein Serum Total Protein Total Protein Albumin Jiged-8-Vqcitqght Abnorm Protein Band 1 PEP Interpretation Crossmatch 10/14/16 10/14/16 10/14/16 09:58 09:58 09:58 WBC RBC Hgb Hct MCV MCHC RDW Plt Count Seg Neuts % (Manual) Lymphocytes % (Manual) Nucleated RBC % Seg Neutrophils # Man Lymphocytes # (Manual) Haptoglobin 218 H PT INR Fibrinogen 557 H Lupus Anticoagulant LA PTT Baseline POC ABG pH POC ABG pCO2 POC ABG pO2 Sodium Potassium Chloride Carbon Dioxide BUN Creatinine Glucose POC Glucose Lactic Acid Uric Acid Calcium Phosphorus Iron TIBC Erythropoietin Ferritin Total Bilirubin 1.30 H Direct Bilirubin 1.1 H AST ALT Alkaline Phosphatase Lactate Dehydrogenase C-Reactive Protein Serum Total Protein Total Protein Albumin Xzsxf-3-Mhdicuxar Abnorm Protein Band 1 PEP Interpretation Crossmatch 10/14/16 10/14/16 10/14/16 10:57 11:15 12:52 WBC RBC Hgb Hct MCV MCHC RDW Plt Count Seg Neuts % (Manual) Lymphocytes % (Manual) Nucleated RBC % Seg Neutrophils # Man Lymphocytes # (Manual) Haptoglobin PT INR Fibrinogen Lupus Anticoagulant LA PTT Baseline POC ABG pH POC ABG pCO2 POC ABG pO2 Sodium Potassium Chloride Carbon Dioxide BUN Creatinine Glucose POC Glucose < 40 L < 40 L Lactic Acid 9.60 H* Uric Acid Calcium Phosphorus Iron TIBC Erythropoietin Ferritin Total Bilirubin Direct Bilirubin AST ALT Alkaline Phosphatase Lactate Dehydrogenase C-Reactive Protein Serum Total Protein Total Protein Albumin Nokal-7-Catufwagl Abnorm Protein Band 1 PEP Interpretation Crossmatch 10/14/16 10/14/16 10/14/16 12:52 13:17 14:12 WBC RBC Hgb Hct MCV MCHC RDW Plt Count Seg Neuts % (Manual) Lymphocytes % (Manual) Nucleated RBC % Seg Neutrophils # Man Lymphocytes # (Manual) Haptoglobin PT INR Fibrinogen Lupus Anticoagulant LA PTT Baseline POC ABG pH POC ABG pCO2 POC ABG pO2 Sodium Potassium Chloride Carbon Dioxide BUN Creatinine Glucose POC Glucose < 40 L < 40 L Lactic Acid Uric Acid Calcium Phosphorus Iron TIBC Erythropoietin Ferritin Total Bilirubin Direct Bilirubin AST ALT Alkaline Phosphatase Lactate Dehydrogenase C-Reactive Protein 40.40 H Serum Total Protein Total Protein Albumin Vdyyx-9-Xspqzfcoy Abnorm Protein Band 1 PEP Interpretation Crossmatch 10/14/16 10/14/16 10/14/16 15:02 15:33 15:33 WBC RBC Hgb Hct MCV MCHC RDW Plt Count Seg Neuts % (Manual) Lymphocytes % (Manual) Nucleated RBC % Seg Neutrophils # Man Lymphocytes # (Manual) Haptoglobin PT INR Fibrinogen Lupus Anticoagulant LA PTT Baseline POC ABG pH POC ABG pCO2 POC ABG pO2 Sodium Potassium Chloride Carbon Dioxide BUN Creatinine Glucose 19 L* POC Glucose < 40 L Lactic Acid 11.60 H* Uric Acid Calcium Phosphorus Iron TIBC Erythropoietin Ferritin Total Bilirubin Direct Bilirubin AST ALT Alkaline Phosphatase Lactate Dehydrogenase C-Reactive Protein Serum Total Protein Total Protein Albumin Kvcff-7-Xwzdsloeq Abnorm Protein Band 1 PEP Interpretation Crossmatch 10/14/16 10/14/16 10/14/16 17:14 18:03 21:25 WBC RBC Hgb Hct MCV MCHC RDW Plt Count Seg Neuts % (Manual) Lymphocytes % (Manual) Nucleated RBC % Seg Neutrophils # Man Lymphocytes # (Manual) Haptoglobin PT 28.9 H INR 2.71 H Fibrinogen Lupus Anticoagulant LA PTT Baseline POC ABG pH POC ABG pCO2 POC ABG pO2 Sodium Potassium Chloride Carbon Dioxide BUN Creatinine Glucose POC Glucose < 40 L 57 L Lactic Acid Uric Acid Calcium Phosphorus Iron TIBC Erythropoietin Ferritin Total Bilirubin Direct Bilirubin AST ALT Alkaline Phosphatase Lactate Dehydrogenase C-Reactive Protein Serum Total Protein Total Protein Albumin Jnmej-2-Ozdolslvs Abnorm Protein Band 1 PEP Interpretation Crossmatch 10/15/16 10/15/16 10/15/16 05:32 05:35 05:35 WBC RBC 2.62 L Hgb 8.1 L Hct 25.8 L MCV 98 H D MCHC 31 L RDW 21.2 H Plt Count 61 L Seg Neuts % (Manual) 27.0 L Lymphocytes % (Manual) 10.0 L Nucleated RBC % 2.0 H Seg Neutrophils # Man Lymphocytes # (Manual) 0.8 L Haptoglobin PT INR Fibrinogen Lupus Anticoagulant LA PTT Baseline POC ABG pH POC ABG pCO2 POC ABG pO2 Sodium Potassium Chloride Carbon Dioxide BUN Creatinine Glucose POC Glucose < 40 L Lactic Acid Uric Acid Calcium Phosphorus Iron TIBC Erythropoietin Ferritin Total Bilirubin Direct Bilirubin AST ALT Alkaline Phosphatase Lactate Dehydrogenase 3871 H C-Reactive Protein Serum Total Protein Total Protein Albumin Awplx-6-Vuxgjwqfh Abnorm Protein Band 1 PEP Interpretation Crossmatch 10/15/16 10/15/16 10/15/16 05:35 05:35 05:35 WBC RBC Hgb Hct MCV MCHC RDW Plt Count Seg Neuts % (Manual) Lymphocytes % (Manual) Nucleated RBC % Seg Neutrophils # Man Lymphocytes # (Manual) Haptoglobin PT INR Fibrinogen Lupus Anticoagulant LA PTT Baseline POC ABG pH POC ABG pCO2 POC ABG pO2 Sodium 136 L Potassium 5.3 H D Chloride 91.4 L Carbon Dioxide 6 L* D BUN 57 H Creatinine 7.1 H Glucose 11 L* POC Glucose Lactic Acid 13.60 H* Uric Acid Calcium 7.7 L Phosphorus 10.10 H D Iron TIBC 166 L Erythropoietin Ferritin 9562.0 H Total Bilirubin Direct Bilirubin AST ALT Alkaline Phosphatase Lactate Dehydrogenase C-Reactive Protein Serum Total Protein Total Protein Albumin Ofneh-4-Zdekxuzfm Abnorm Protein Band 1 PEP Interpretation Crossmatch 10/15/16 10/15/16 10/15/16 05:51 06:22 06:52 WBC RBC Hgb Hct MCV MCHC RDW Plt Count Seg Neuts % (Manual) Lymphocytes % (Manual) Nucleated RBC % Seg Neutrophils # Man Lymphocytes # (Manual) Haptoglobin PT INR Fibrinogen Lupus Anticoagulant LA PTT Baseline POC ABG pH 7.189 L POC ABG pCO2 28.9 L POC ABG pO2 Sodium Potassium Chloride Carbon Dioxide BUN Creatinine Glucose POC Glucose 59 L 111 H Lactic Acid Uric Acid Calcium Phosphorus Iron TIBC Erythropoietin Ferritin Total Bilirubin Direct Bilirubin AST ALT Alkaline Phosphatase Lactate Dehydrogenase C-Reactive Protein Serum Total Protein Total Protein Albumin Yekxm-7-Xxhvkcvcc Abnorm Protein Band 1 PEP Interpretation Crossmatch 10/15/16 10/15/16 10/15/16 08:00 09:57 11:42 WBC RBC Hgb Hct MCV MCHC RDW Plt Count Seg Neuts % (Manual) Lymphocytes % (Manual) Nucleated RBC % Seg Neutrophils # Man Lymphocytes # (Manual) Haptoglobin PT INR Fibrinogen Lupus Anticoagulant LA PTT Baseline POC ABG pH POC ABG pCO2 POC ABG pO2 Sodium Potassium Chloride Carbon Dioxide BUN Creatinine Glucose POC Glucose 63 L 143 H 203 H Lactic Acid Uric Acid Calcium Phosphorus Iron TIBC Erythropoietin Ferritin Total Bilirubin Direct Bilirubin AST ALT Alkaline Phosphatase Lactate Dehydrogenase C-Reactive Protein Serum Total Protein Total Protein Albumin Zxrwb-1-Iiodgjejr Abnorm Protein Band 1 PEP Interpretation Crossmatch 10/15/16 10/15/16 10/15/16 12:00 12:00 13:00 WBC RBC Hgb Hct MCV MCHC RDW Plt Count Seg Neuts % (Manual) Lymphocytes % (Manual) Nucleated RBC % Seg Neutrophils # Man Lymphocytes # (Manual) Haptoglobin <15 L PT INR Fibrinogen Lupus Anticoagulant LA PTT Baseline POC ABG pH POC ABG pCO2 POC ABG pO2 Sodium Potassium Chloride Carbon Dioxide BUN Creatinine Glucose POC Glucose 136 H Lactic Acid 16.30 H* Uric Acid Calcium Phosphorus Iron TIBC Erythropoietin Ferritin Total Bilirubin Direct Bilirubin AST ALT Alkaline Phosphatase Lactate Dehydrogenase C-Reactive Protein Serum Total Protein Total Protein Albumin Xpmol-9-Pzxslcdsl Abnorm Protein Band 1 PEP Interpretation Crossmatch 10/15/16 10/15/16 10/15/16 14:06 15:15 16:23 WBC RBC Hgb Hct MCV MCHC RDW Plt Count Seg Neuts % (Manual) Lymphocytes % (Manual) Nucleated RBC % Seg Neutrophils # Man Lymphocytes # (Manual) Haptoglobin PT INR Fibrinogen Lupus Anticoagulant LA PTT Baseline POC ABG pH POC ABG pCO2 POC ABG pO2 Sodium Potassium Chloride Carbon Dioxide BUN Creatinine Glucose POC Glucose 132 H 64 L Lactic Acid 20.40 H* Uric Acid Calcium Phosphorus Iron TIBC Erythropoietin Ferritin Total Bilirubin Direct Bilirubin AST ALT Alkaline Phosphatase Lactate Dehydrogenase C-Reactive Protein Serum Total Protein Total Protein Albumin Sijgd-6-Recsxmmll Abnorm Protein Band 1 PEP Interpretation Crossmatch 10/15/16 10/15/16 10/15/16 16:40 17:00 17:10 WBC RBC Hgb Hct MCV MCHC RDW Plt Count Seg Neuts % (Manual) Lymphocytes % (Manual) Nucleated RBC % Seg Neutrophils # Man Lymphocytes # (Manual) Haptoglobin PT INR Fibrinogen Lupus Anticoagulant LA PTT Baseline POC ABG pH 7.323 L POC ABG pCO2 25.8 L POC ABG pO2 135 H Sodium Potassium Chloride Carbon Dioxide BUN Creatinine Glucose POC Glucose 159 H Lactic Acid 20.20 H* Uric Acid Calcium Phosphorus Iron TIBC Erythropoietin Ferritin Total Bilirubin Direct Bilirubin AST ALT Alkaline Phosphatase Lactate Dehydrogenase C-Reactive Protein Serum Total Protein Total Protein Albumin Ugswi-4-Wsrtcfepd Abnorm Protein Band 1 PEP Interpretation Crossmatch 10/15/16 10/15/16 10/15/16 17:46 17:53 18:45 WBC RBC Hgb Hct MCV MCHC RDW Plt Count Seg Neuts % (Manual) Lymphocytes % (Manual) Nucleated RBC % Seg Neutrophils # Man Lymphocytes # (Manual) Haptoglobin PT INR Fibrinogen Lupus Anticoagulant LA PTT Baseline POC ABG pH POC ABG pCO2 POC ABG pO2 Sodium Potassium Chloride Carbon Dioxide BUN Creatinine Glucose POC Glucose 126 H 143 H Lactic Acid 21.40 H* Uric Acid Calcium Phosphorus Iron TIBC Erythropoietin Ferritin Total Bilirubin Direct Bilirubin AST ALT Alkaline Phosphatase Lactate Dehydrogenase C-Reactive Protein Serum Total Protein Total Protein Albumin Jwrhb-1-Rhoxylbho Abnorm Protein Band 1 PEP Interpretation Crossmatch 10/15/16 10/15/16 10/16/16 20:03 22:59 00:06 WBC RBC Hgb Hct MCV MCHC RDW Plt Count Seg Neuts % (Manual) Lymphocytes % (Manual) Nucleated RBC % Seg Neutrophils # Man Lymphocytes # (Manual) Haptoglobin PT INR Fibrinogen Lupus Anticoagulant LA PTT Baseline POC ABG pH POC ABG pCO2 POC ABG pO2 Sodium Potassium Chloride Carbon Dioxide BUN Creatinine Glucose POC Glucose 66 L 53 L 126 H Lactic Acid Uric Acid Calcium Phosphorus Iron TIBC Erythropoietin Ferritin Total Bilirubin Direct Bilirubin AST ALT Alkaline Phosphatase Lactate Dehydrogenase C-Reactive Protein Serum Total Protein Total Protein Albumin Uvvjr-4-Pjssedcoj Abnorm Protein Band 1 PEP Interpretation Crossmatch 10/16/16 10/16/16 10/16/16 01:03 03:55 04:00 WBC RBC Hgb Hct MCV MCHC RDW Plt Count Seg Neuts % (Manual) Lymphocytes % (Manual) Nucleated RBC % Seg Neutrophils # Man Lymphocytes # (Manual) Haptoglobin PT INR Fibrinogen Lupus Anticoagulant LA PTT Baseline POC ABG pH POC ABG pCO2 POC ABG pO2 Sodium Potassium Chloride Carbon Dioxide BUN Creatinine Glucose POC Glucose 107 H 260 H Lactic Acid 18.00 H* Uric Acid Calcium Phosphorus Iron TIBC Erythropoietin Ferritin Total Bilirubin Direct Bilirubin AST ALT Alkaline Phosphatase Lactate Dehydrogenase C-Reactive Protein Serum Total Protein Total Protein Albumin Pyqvc-7-Klmupifgf Abnorm Protein Band 1 PEP Interpretation Crossmatch 10/16/16 10/16/16 10/16/16 04:03 07:58 08:34 WBC RBC Hgb Hct MCV MCHC RDW Plt Count Seg Neuts % (Manual) Lymphocytes % (Manual) Nucleated RBC % Seg Neutrophils # Man Lymphocytes # (Manual) Haptoglobin PT INR Fibrinogen Lupus Anticoagulant LA PTT Baseline POC ABG pH 7.527 H POC ABG pCO2 32.9 L POC ABG pO2 119 H Sodium Potassium Chloride Carbon Dioxide BUN Creatinine Glucose POC Glucose 120 H 66 L Lactic Acid Uric Acid Calcium Phosphorus Iron TIBC Erythropoietin Ferritin Total Bilirubin Direct Bilirubin AST ALT Alkaline Phosphatase Lactate Dehydrogenase C-Reactive Protein Serum Total Protein Total Protein Albumin Khyum-4-Qmxfcjyfw Abnorm Protein Band 1 PEP Interpretation Crossmatch 10/16/16 10/16/16 10/16/16 09:13 10:06 10:57 WBC RBC Hgb Hct MCV MCHC RDW Plt Count Seg Neuts % (Manual) Lymphocytes % (Manual) Nucleated RBC % Seg Neutrophils # Man Lymphocytes # (Manual) Haptoglobin PT INR Fibrinogen Lupus Anticoagulant LA PTT Baseline POC ABG pH POC ABG pCO2 POC ABG pO2 Sodium Potassium Chloride Carbon Dioxide BUN Creatinine Glucose POC Glucose 147 H 137 H 140 H Lactic Acid Uric Acid Calcium Phosphorus Iron TIBC Erythropoietin Ferritin Total Bilirubin Direct Bilirubin AST ALT Alkaline Phosphatase Lactate Dehydrogenase C-Reactive Protein Serum Total Protein Total Protein Albumin Njawr-9-Jydgxlrlx Abnorm Protein Band 1 PEP Interpretation Crossmatch 10/16/16 10/16/16 10/16/16 11:15 11:15 11:15 WBC 25.8 H RBC 2.30 L Hgb 7.0 L Hct 22.3 L MCV 97 H MCHC 31 L RDW 21.2 H Plt Count 42 L Seg Neuts % (Manual) Lymphocytes % (Manual) 3.0 L Nucleated RBC % 2.0 H Seg Neutrophils # Man 11.1 H Lymphocytes # (Manual) 0.8 L Haptoglobin PT INR Fibrinogen Lupus Anticoagulant LA PTT Baseline POC ABG pH POC ABG pCO2 POC ABG pO2 Sodium Potassium Chloride 81.7 L Carbon Dioxide 13 L D BUN 61 H Creatinine 6.2 H Glucose 171 H POC Glucose Lactic Acid 22.70 H* Uric Acid Calcium 7.1 L Phosphorus 9.10 H Iron TIBC Erythropoietin Ferritin Total Bilirubin Direct Bilirubin AST ALT Alkaline Phosphatase Lactate Dehydrogenase C-Reactive Protein Serum Total Protein Total Protein Albumin Yfpad-0-Fibgsaxof Abnorm Protein Band 1 PEP Interpretation Crossmatch 10/16/16 10/16/16 10/16/16 15:10 15:50 18:11 WBC RBC Hgb Hct MCV MCHC RDW Plt Count Seg Neuts % (Manual) Lymphocytes % (Manual) Nucleated RBC % Seg Neutrophils # Man Lymphocytes # (Manual) Haptoglobin PT INR Fibrinogen Lupus Anticoagulant LA PTT Baseline POC ABG pH POC ABG pCO2 POC ABG pO2 Sodium Potassium Chloride Carbon Dioxide BUN Creatinine Glucose POC Glucose 47 L 164 H 58 L Lactic Acid Uric Acid Calcium Phosphorus Iron TIBC Erythropoietin Ferritin Total Bilirubin Direct Bilirubin AST ALT Alkaline Phosphatase Lactate Dehydrogenase C-Reactive Protein Serum Total Protein Total Protein Albumin Tiaca-8-Rfcafcrua Abnorm Protein Band 1 PEP Interpretation Crossmatch 10/16/16 10/16/16 10/17/16 18:26 21:06 00:06 WBC RBC Hgb Hct MCV MCHC RDW Plt Count Seg Neuts % (Manual) Lymphocytes % (Manual) Nucleated RBC % Seg Neutrophils # Man Lymphocytes # (Manual) Haptoglobin PT INR Fibrinogen Lupus Anticoagulant LA PTT Baseline POC ABG pH POC ABG pCO2 POC ABG pO2 489 H Sodium Potassium Chloride Carbon Dioxide BUN Creatinine Glucose POC Glucose 52 L 120 H Lactic Acid Uric Acid Calcium Phosphorus Iron TIBC Erythropoietin Ferritin Total Bilirubin Direct Bilirubin AST ALT Alkaline Phosphatase Lactate Dehydrogenase C-Reactive Protein Serum Total Protein Total Protein Albumin Gxles-1-Dudbfqqus Abnorm Protein Band 1 PEP Interpretation Crossmatch 10/17/16 10/17/16 10/17/16 04:55 04:55 05:04 WBC 25.5 H RBC 2.23 L Hgb 6.6 L Hct 21.2 L MCV 95 H MCHC 31 L RDW 20.5 H Plt Count 35 L Seg Neuts % (Manual) 79.0 H Lymphocytes % (Manual) 0 L Nucleated RBC % Seg Neutrophils # Man 20.1 H Lymphocytes # (Manual) 0.0 L Haptoglobin PT INR Fibrinogen Lupus Anticoagulant LA PTT Baseline POC ABG pH POC ABG pCO2 27.2 L POC ABG pO2 162 H Sodium Potassium Chloride 91.5 L Carbon Dioxide 16 L BUN 45 H Creatinine 4.5 H Glucose 103 H POC Glucose Lactic Acid Uric Acid Calcium 6.9 L Phosphorus 5.80 H D Iron TIBC Erythropoietin Ferritin Total Bilirubin Direct Bilirubin AST ALT Alkaline Phosphatase Lactate Dehydrogenase C-Reactive Protein Serum Total Protein Total Protein Albumin Jhcwj-6-Tbnqiubbp Abnorm Protein Band 1 PEP Interpretation Crossmatch 10/17/16 10/17/16 10/17/16 07:59 09:04 10:04 WBC RBC Hgb Hct MCV MCHC RDW Plt Count Seg Neuts % (Manual) Lymphocytes % (Manual) Nucleated RBC % Seg Neutrophils # Man Lymphocytes # (Manual) Haptoglobin PT INR Fibrinogen Lupus Anticoagulant LA PTT Baseline POC ABG pH POC ABG pCO2 POC ABG pO2 Sodium Potassium Chloride Carbon Dioxide BUN Creatinine Glucose POC Glucose 65 L 118 H Lactic Acid Uric Acid Calcium Phosphorus Iron TIBC Erythropoietin Ferritin Total Bilirubin Direct Bilirubin AST ALT Alkaline Phosphatase Lactate Dehydrogenase C-Reactive Protein Serum Total Protein Total Protein Albumin Gtwqf-3-Kimazzzdc Abnorm Protein Band 1 PEP Interpretation Crossmatch See Detail 10/17/16 10/17/16 10/17/16 11:52 13:08 15:42 WBC RBC Hgb Hct MCV MCHC RDW Plt Count Seg Neuts % (Manual) Lymphocytes % (Manual) Nucleated RBC % Seg Neutrophils # Man Lymphocytes # (Manual) Haptoglobin PT INR Fibrinogen Lupus Anticoagulant LA PTT Baseline POC ABG pH POC ABG pCO2 POC ABG pO2 Sodium Potassium Chloride Carbon Dioxide BUN Creatinine Glucose POC Glucose 125 H 106 H 55 L Lactic Acid Uric Acid Calcium Phosphorus Iron TIBC Erythropoietin Ferritin Total Bilirubin Direct Bilirubin AST ALT Alkaline Phosphatase Lactate Dehydrogenase C-Reactive Protein Serum Total Protein Total Protein Albumin Aezqm-1-Hsjtrthsz Abnorm Protein Band 1 PEP Interpretation Crossmatch 10/17/16 10/17/16 10/17/16 17:39 20:37 21:02 WBC RBC Hgb Hct MCV MCHC RDW Plt Count Seg Neuts % (Manual) Lymphocytes % (Manual) Nucleated RBC % Seg Neutrophils # Man Lymphocytes # (Manual) Haptoglobin PT INR Fibrinogen Lupus Anticoagulant LA PTT Baseline POC ABG pH POC ABG pCO2 28.2 L POC ABG pO2 Sodium Potassium Chloride Carbon Dioxide BUN Creatinine Glucose POC Glucose < 40 L 106 H Lactic Acid Uric Acid Calcium Phosphorus Iron TIBC Erythropoietin Ferritin Total Bilirubin Direct Bilirubin AST ALT Alkaline Phosphatase Lactate Dehydrogenase C-Reactive Protein Serum Total Protein Total Protein Albumin Oninh-0-Bqyygdwdm Abnorm Protein Band 1 PEP Interpretation Crossmatch 05/22/17 05/22/17 05/23/17 22:18 23:14 00:28 WBC RBC Hgb Hct MCV MCHC RDW Plt Count Seg Neuts % (Manual) Lymphocytes % (Manual) Nucleated RBC % Seg Neutrophils # Man Lymphocytes # (Manual) Haptoglobin PT INR Fibrinogen Lupus Anticoagulant LA PTT Baseline POC ABG pH POC ABG pCO2 POC ABG pO2 Sodium Potassium Chloride Carbon Dioxide BUN Creatinine Glucose POC Glucose 111 H 118 H 112 H Lactic Acid Uric Acid Calcium Phosphorus Iron TIBC Erythropoietin Ferritin Total Bilirubin Direct Bilirubin AST ALT Alkaline Phosphatase Lactate Dehydrogenase C-Reactive Protein Serum Total Protein Total Protein Albumin Rdsyw-2-Dxznnoezp Abnorm Protein Band 1 PEP Interpretation Crossmatch 10/18/16 10/18/16 10/18/16 05:00 05:00 05:15 WBC 27.3 H RBC 2.75 L Hgb 7.9 L Hct 25.3 L MCV MCHC 31 L RDW 20.7 H Plt Count 31 L Seg Neuts % (Manual) 87.0 H Lymphocytes % (Manual) 1.0 L Nucleated RBC % 1.0 H Seg Neutrophils # Man 23.8 H Lymphocytes # (Manual) 0.3 L Haptoglobin PT INR Fibrinogen Lupus Anticoagulant LA PTT Baseline POC ABG pH 7.466 H POC ABG pCO2 25.1 L POC ABG pO2 Sodium Potassium Chloride 88.7 L Carbon Dioxide 18 L BUN 66 H Creatinine 4.7 H Glucose POC Glucose Lactic Acid Uric Acid Calcium 6.1 L Phosphorus 7.30 H D Iron TIBC Erythropoietin Ferritin Total Bilirubin Direct Bilirubin AST ALT Alkaline Phosphatase Lactate Dehydrogenase C-Reactive Protein Serum Total Protein Total Protein Albumin Bimgj-5-Apvyclaow Abnorm Protein Band 1 PEP Interpretation Crossmatch 10/18/16 10/18/16 10/18/16 07:15 07:44 09:07 WBC RBC Hgb Hct MCV MCHC RDW Plt Count Seg Neuts % (Manual) Lymphocytes % (Manual) Nucleated RBC % Seg Neutrophils # Man Lymphocytes # (Manual) Haptoglobin PT INR Fibrinogen Lupus Anticoagulant LA PTT Baseline POC ABG pH POC ABG pCO2 POC ABG pO2 Sodium Potassium Chloride Carbon Dioxide BUN Creatinine Glucose POC Glucose 64 L 156 H 117 H Lactic Acid Uric Acid Calcium Phosphorus Iron TIBC Erythropoietin Ferritin Total Bilirubin Direct Bilirubin AST ALT Alkaline Phosphatase Lactate Dehydrogenase C-Reactive Protein Serum Total Protein Total Protein Albumin Rwios-9-Iiexvgrmt Abnorm Protein Band 1 PEP Interpretation Crossmatch 10/18/16 10/18/16 10/18/16 09:15 14:00 18:21 WBC RBC Hgb Hct MCV MCHC RDW Plt Count Seg Neuts % (Manual) Lymphocytes % (Manual) Nucleated RBC % Seg Neutrophils # Man Lymphocytes # (Manual) Haptoglobin PT INR Fibrinogen Lupus Anticoagulant LA PTT Baseline POC ABG pH POC ABG pCO2 POC ABG pO2 Sodium Potassium Chloride Carbon Dioxide BUN Creatinine Glucose POC Glucose 106 H 112 H Lactic Acid 14.30 H* Uric Acid Calcium Phosphorus Iron TIBC Erythropoietin Ferritin Total Bilirubin Direct Bilirubin AST ALT Alkaline Phosphatase Lactate Dehydrogenase C-Reactive Protein Serum Total Protein Total Protein Albumin Kthig-4-Wmpnkpyjl Abnorm Protein Band 1 PEP Interpretation Crossmatch 10/18/16 10/18/16 10/18/16 19:58 20:55 22:11 WBC RBC Hgb Hct MCV MCHC RDW Plt Count Seg Neuts % (Manual) Lymphocytes % (Manual) Nucleated RBC % Seg Neutrophils # Man Lymphocytes # (Manual) Haptoglobin PT INR Fibrinogen Lupus Anticoagulant LA PTT Baseline POC ABG pH POC ABG pCO2 POC ABG pO2 Sodium Potassium Chloride Carbon Dioxide BUN Creatinine Glucose POC Glucose 127 H 125 H 159 H Lactic Acid Uric Acid Calcium Phosphorus Iron TIBC Erythropoietin Ferritin Total Bilirubin Direct Bilirubin AST ALT Alkaline Phosphatase Lactate Dehydrogenase C-Reactive Protein Serum Total Protein Total Protein Albumin Efpfn-2-Omnqqxkie Abnorm Protein Band 1 PEP Interpretation Crossmatch 10/18/16 10/18/16 10/19/16 23:11 23:57 01:06 WBC RBC Hgb Hct MCV MCHC RDW Plt Count Seg Neuts % (Manual) Lymphocytes % (Manual) Nucleated RBC % Seg Neutrophils # Man Lymphocytes # (Manual) Haptoglobin PT INR Fibrinogen Lupus Anticoagulant LA PTT Baseline POC ABG pH POC ABG pCO2 POC ABG pO2 Sodium Potassium Chloride Carbon Dioxide BUN Creatinine Glucose POC Glucose 122 H 137 H 162 H Lactic Acid Uric Acid Calcium Phosphorus Iron TIBC Erythropoietin Ferritin Total Bilirubin Direct Bilirubin AST ALT Alkaline Phosphatase Lactate Dehydrogenase C-Reactive Protein Serum Total Protein Total Protein Albumin Spyih-7-Gvvmwfovv Abnorm Protein Band 1 PEP Interpretation Crossmatch 10/19/16 10/19/16 10/19/16 01:59 03:07 04:10 WBC RBC Hgb Hct MCV MCHC RDW Plt Count Seg Neuts % (Manual) Lymphocytes % (Manual) Nucleated RBC % Seg Neutrophils # Man Lymphocytes # (Manual) Haptoglobin PT INR Fibrinogen Lupus Anticoagulant LA PTT Baseline POC ABG pH POC ABG pCO2 POC ABG pO2 Sodium Potassium Chloride Carbon Dioxide BUN Creatinine Glucose POC Glucose 154 H 178 H 186 H Lactic Acid Uric Acid Calcium Phosphorus Iron TIBC Erythropoietin Ferritin Total Bilirubin Direct Bilirubin AST ALT Alkaline Phosphatase Lactate Dehydrogenase C-Reactive Protein Serum Total Protein Total Protein Albumin Rcuvq-9-Brfzvqiye Abnorm Protein Band 1 PEP Interpretation Crossmatch 10/19/16 10/19/16 10/19/16 05:14 05:15 05:47 WBC RBC Hgb Hct MCV MCHC RDW Plt Count Seg Neuts % (Manual) Lymphocytes % (Manual) Nucleated RBC % Seg Neutrophils # Man Lymphocytes # (Manual) Haptoglobin PT INR Fibrinogen Lupus Anticoagulant LA PTT Baseline POC ABG pH 7.581 H POC ABG pCO2 22.9 L POC ABG pO2 58 L Sodium Potassium Chloride Carbon Dioxide BUN Creatinine Glucose POC Glucose 197 H 204 H Lactic Acid Uric Acid Calcium Phosphorus Iron TIBC Erythropoietin Ferritin Total Bilirubin Direct Bilirubin AST ALT Alkaline Phosphatase Lactate Dehydrogenase C-Reactive Protein Serum Total Protein Total Protein Albumin Ruvtk-1-Tjzwqwmlc Abnorm Protein Band 1 PEP Interpretation Crossmatch 10/19/16 10/19/16 10/19/16 06:00 06:00 07:51 WBC 23.0 H RBC 2.54 L Hgb 7.5 L Hct 23.0 L MCV MCHC RDW 20.7 H Plt Count 25 L Seg Neuts % (Manual) 91.0 H Lymphocytes % (Manual) 2.0 L Nucleated RBC % 1.0 H Seg Neutrophils # Man 20.9 H Lymphocytes # (Manual) 0.5 L Haptoglobin PT INR Fibrinogen Lupus Anticoagulant LA PTT Baseline POC ABG pH POC ABG pCO2 POC ABG pO2 Sodium Potassium Chloride 88.7 L Carbon Dioxide 21 L BUN 70 H Creatinine 3.9 H Glucose 189 H POC Glucose 145 H Lactic Acid Uric Acid Calcium 5.6 L* Phosphorus 6.30 H Iron TIBC Erythropoietin Ferritin Total Bilirubin Direct Bilirubin AST ALT Alkaline Phosphatase Lactate Dehydrogenase C-Reactive Protein Serum Total Protein Total Protein Albumin Vyzzb-6-Hdcozgqam Abnorm Protein Band 1 PEP Interpretation Crossmatch 10/19/16 10/19/16 10/19/16 09:14 10:01 12:14 WBC RBC Hgb Hct MCV MCHC RDW Plt Count Seg Neuts % (Manual) Lymphocytes % (Manual) Nucleated RBC % Seg Neutrophils # Man Lymphocytes # (Manual) Haptoglobin PT INR Fibrinogen Lupus Anticoagulant LA PTT Baseline POC ABG pH POC ABG pCO2 POC ABG pO2 Sodium Potassium Chloride Carbon Dioxide BUN Creatinine Glucose POC Glucose 173 H 153 H 180 H Lactic Acid Uric Acid Calcium Phosphorus Iron TIBC Erythropoietin Ferritin Total Bilirubin Direct Bilirubin AST ALT Alkaline Phosphatase Lactate Dehydrogenase C-Reactive Protein Serum Total Protein Total Protein Albumin Nctai-0-Akveesjiq Abnorm Protein Band 1 PEP Interpretation Crossmatch 10/19/16 10/19/16 10/19/16 14:15 16:38 20:27 WBC RBC Hgb Hct MCV MCHC RDW Plt Count Seg Neuts % (Manual) Lymphocytes % (Manual) Nucleated RBC % Seg Neutrophils # Man Lymphocytes # (Manual) Haptoglobin PT INR Fibrinogen Lupus Anticoagulant LA PTT Baseline POC ABG pH POC ABG pCO2 POC ABG pO2 Sodium Potassium Chloride Carbon Dioxide BUN Creatinine Glucose POC Glucose 194 H 202 H Lactic Acid Uric Acid Calcium Phosphorus Iron TIBC Erythropoietin 148.2 H Ferritin Total Bilirubin Direct Bilirubin AST ALT Alkaline Phosphatase Lactate Dehydrogenase C-Reactive Protein Serum Total Protein Total Protein Albumin Hccdd-3-Ociaxccua Abnorm Protein Band 1 PEP Interpretation Crossmatch 10/19/16 10/20/16 10/20/16 23:27 04:06 05:00 WBC RBC Hgb Hct MCV MCHC RDW Plt Count Seg Neuts % (Manual) Lymphocytes % (Manual) Nucleated RBC % Seg Neutrophils # Man Lymphocytes # (Manual) Haptoglobin PT INR Fibrinogen Lupus Anticoagulant LA PTT Baseline POC ABG pH POC ABG pCO2 POC ABG pO2 Sodium Potassium Chloride 88.8 L Carbon Dioxide BUN 93 H Creatinine 4.3 H Glucose 204 H POC Glucose 201 H 200 H Lactic Acid Uric Acid Calcium 5.2 L* Phosphorus Iron TIBC Erythropoietin Ferritin Total Bilirubin Direct Bilirubin AST ALT Alkaline Phosphatase Lactate Dehydrogenase C-Reactive Protein Serum Total Protein Total Protein Albumin Kmqol-2-Ychqlnyym Abnorm Protein Band 1 PEP Interpretation Crossmatch 10/20/16 10/20/16 10/20/16 05:16 06:00 07:43 WBC 24.8 H RBC 2.52 L Hgb 7.4 L Hct 22.9 L MCV MCHC RDW 19.9 H Plt Count 23 L Seg Neuts % (Manual) 97.0 H Lymphocytes % (Manual) 1.0 L Nucleated RBC % 9.0 H Seg Neutrophils # Man 24.1 H Lymphocytes # (Manual) 0.2 L Haptoglobin PT INR Fibrinogen Lupus Anticoagulant LA PTT Baseline POC ABG pH 7.463 H POC ABG pCO2 POC ABG pO2 157 H Sodium Potassium Chloride Carbon Dioxide BUN Creatinine Glucose POC Glucose 192 H Lactic Acid Uric Acid Calcium Phosphorus Iron TIBC Erythropoietin Ferritin Total Bilirubin Direct Bilirubin AST ALT Alkaline Phosphatase Lactate Dehydrogenase C-Reactive Protein Serum Total Protein Total Protein Albumin Qidzq-1-Riorcefut Abnorm Protein Band 1 PEP Interpretation Crossmatch 10/20/16 10/20/16 10/20/16 12:11 15:32 21:23 WBC RBC Hgb Hct MCV MCHC RDW Plt Count Seg Neuts % (Manual) Lymphocytes % (Manual) Nucleated RBC % Seg Neutrophils # Man Lymphocytes # (Manual) Haptoglobin PT INR Fibrinogen Lupus Anticoagulant LA PTT Baseline POC ABG pH POC ABG pCO2 POC ABG pO2 Sodium Potassium Chloride Carbon Dioxide BUN Creatinine Glucose POC Glucose 172 H 216 H 271 H Lactic Acid Uric Acid Calcium Phosphorus Iron TIBC Erythropoietin Ferritin Total Bilirubin Direct Bilirubin AST ALT Alkaline Phosphatase Lactate Dehydrogenase C-Reactive Protein Serum Total Protein Total Protein Albumin Rrbjj-9-Stuetbnoz Abnorm Protein Band 1 PEP Interpretation Crossmatch 10/20/16 10/21/16 10/21/16 23:49 03:53 04:58 WBC RBC Hgb Hct MCV MCHC RDW Plt Count Seg Neuts % (Manual) Lymphocytes % (Manual) Nucleated RBC % Seg Neutrophils # Man Lymphocytes # (Manual) Haptoglobin PT INR Fibrinogen Lupus Anticoagulant LA PTT Baseline POC ABG pH 7.459 H POC ABG pCO2 POC ABG pO2 113 H Sodium 136 L Potassium 2.8 L* D Chloride 91.6 L Carbon Dioxide BUN 62 H Creatinine 2.8 H Glucose 236 H POC Glucose 317 H Lactic Acid Uric Acid Calcium 6.2 L D Phosphorus Iron TIBC Erythropoietin Ferritin Total Bilirubin 2.70 H Direct Bilirubin AST 73 H ALT 57 H Alkaline Phosphatase 158 H Lactate Dehydrogenase C-Reactive Protein Serum Total Protein Total Protein 4.9 L Albumin 2.6 L Izhxz-0-Gkcnsfmsy Abnorm Protein Band 1 PEP Interpretation Crossmatch 10/21/16 10/21/16 10/21/16 05:25 07:11 10:30 WBC 28.1 H RBC 2.36 L Hgb 7.0 L Hct 21.6 L MCV MCHC RDW 20.0 H Plt Count 14 L* Seg Neuts % (Manual) 92.0 H Lymphocytes % (Manual) 0 L Nucleated RBC % 5.0 H Seg Neutrophils # Man 25.9 H Lymphocytes # (Manual) 0.0 L Haptoglobin PT INR Fibrinogen Lupus Anticoagulant LA PTT Baseline POC ABG pH POC ABG pCO2 POC ABG pO2 Sodium Potassium Chloride Carbon Dioxide BUN Creatinine Glucose POC Glucose 237 H 206 H Lactic Acid Uric Acid Calcium Phosphorus Iron TIBC Erythropoietin Ferritin Total Bilirubin Direct Bilirubin AST ALT Alkaline Phosphatase Lactate Dehydrogenase C-Reactive Protein Serum Total Protein Total Protein Albumin Uemud-1-Hfcqervrm Abnorm Protein Band 1 PEP Interpretation Crossmatch 10/21/16 10/21/16 10/21/16 11:25 12:31 16:33 WBC RBC Hgb Hct MCV MCHC RDW Plt Count Seg Neuts % (Manual) Lymphocytes % (Manual) Nucleated RBC % Seg Neutrophils # Man Lymphocytes # (Manual) Haptoglobin PT 49.1 H INR 5.28 H* Fibrinogen Lupus Anticoagulant LA PTT Baseline POC ABG pH POC ABG pCO2 POC ABG pO2 Sodium Potassium Chloride Carbon Dioxide BUN Creatinine Glucose POC Glucose 145 H 151 H Lactic Acid Uric Acid Calcium Phosphorus Iron TIBC Erythropoietin Ferritin Total Bilirubin Direct Bilirubin AST ALT Alkaline Phosphatase Lactate Dehydrogenase C-Reactive Protein Serum Total Protein Total Protein Albumin Vncmq-0-Bdbcqevcr Abnorm Protein Band 1 PEP Interpretation Crossmatch 10/21/16 10/22/16 10/22/16 19:53 00:00 05:23 WBC RBC Hgb Hct MCV MCHC RDW Plt Count Seg Neuts % (Manual) Lymphocytes % (Manual) Nucleated RBC % Seg Neutrophils # Man Lymphocytes # (Manual) Haptoglobin PT INR Fibrinogen Lupus Anticoagulant LA PTT Baseline POC ABG pH POC ABG pCO2 POC ABG pO2 Sodium Potassium Chloride Carbon Dioxide BUN Creatinine Glucose POC Glucose 170 H 168 H 131 H Lactic Acid Uric Acid Calcium Phosphorus Iron TIBC Erythropoietin Ferritin Total Bilirubin Direct Bilirubin AST ALT Alkaline Phosphatase Lactate Dehydrogenase C-Reactive Protein Serum Total Protein Total Protein Albumin Tejdm-2-Mwlheyfix Abnorm Protein Band 1 PEP Interpretation Crossmatch 10/22/16 10/22/16 10/22/16 05:25 05:35 13:03 WBC RBC Hgb Hct MCV MCHC RDW Plt Count Seg Neuts % (Manual) Lymphocytes % (Manual) Nucleated RBC % Seg Neutrophils # Man Lymphocytes # (Manual) Haptoglobin PT INR Fibrinogen Lupus Anticoagulant LA PTT Baseline POC ABG pH 7.462 H POC ABG pCO2 POC ABG pO2 Sodium 135 L Potassium 3.0 L Chloride 88.5 L Carbon Dioxide BUN 84 H Creatinine 3.4 H Glucose 124 H POC Glucose 164 H Lactic Acid Uric Acid Calcium 5.9 L* Phosphorus Iron TIBC Erythropoietin Ferritin Total Bilirubin 2.00 H Direct Bilirubin AST 85 H ALT Alkaline Phosphatase 199 H Lactate Dehydrogenase C-Reactive Protein Serum Total Protein Total Protein 5.0 L Albumin 2.5 L Undbk-8-Gmxfslfjq Abnorm Protein Band 1 PEP Interpretation Crossmatch 10/22/16 10/22/16 10/23/16 17:14 23:16 04:47 WBC RBC Hgb Hct MCV MCHC RDW Plt Count Seg Neuts % (Manual) Lymphocytes % (Manual) Nucleated RBC % Seg Neutrophils # Man Lymphocytes # (Manual) Haptoglobin PT INR Fibrinogen Lupus Anticoagulant LA PTT Baseline POC ABG pH 7.476 H POC ABG pCO2 POC ABG pO2 108 H Sodium Potassium Chloride Carbon Dioxide BUN Creatinine Glucose POC Glucose 188 H 167 H Lactic Acid Uric Acid Calcium Phosphorus Iron TIBC Erythropoietin Ferritin Total Bilirubin Direct Bilirubin AST ALT Alkaline Phosphatase Lactate Dehydrogenase C-Reactive Protein Serum Total Protein Total Protein Albumin Ueijy-3-Vknlueuwy Abnorm Protein Band 1 PEP Interpretation Crossmatch 10/23/16 10/23/16 10/23/16 05:49 07:00 07:12 WBC 24.2 H RBC 2.27 L Hgb 7.0 L Hct 21.1 L MCV MCHC RDW 19.7 H Plt Count 35 L D Seg Neuts % (Manual) Lymphocytes % (Manual) Nucleated RBC % Seg Neutrophils # Man Lymphocytes # (Manual) Haptoglobin PT INR Fibrinogen Lupus Anticoagulant LA PTT Baseline POC ABG pH POC ABG pCO2 POC ABG pO2 Sodium Potassium 3.5 L Chloride 95.7 L Carbon Dioxide BUN 55 H Creatinine 2.7 H Glucose 103 H POC Glucose 106 H Lactic Acid Uric Acid Calcium 7.1 L D Phosphorus Iron TIBC Erythropoietin Ferritin Total Bilirubin Direct Bilirubin AST ALT Alkaline Phosphatase Lactate Dehydrogenase C-Reactive Protein Serum Total Protein Total Protein Albumin Dwisd-9-Deqnwvkjr Abnorm Protein Band 1 PEP Interpretation Crossmatch 10/24/16 10/24/16 10/24/16 00:12 05:16 07:00 WBC 17.9 H RBC 2.12 L Hgb 6.5 L Hct 19.9 L* MCV MCHC RDW 19.3 H Plt Count 44 L Seg Neuts % (Manual) Lymphocytes % (Manual) Nucleated RBC % Seg Neutrophils # Man Lymphocytes # (Manual) Haptoglobin PT INR Fibrinogen Lupus Anticoagulant LA PTT Baseline POC ABG pH POC ABG pCO2 POC ABG pO2 Sodium Potassium Chloride Carbon Dioxide BUN Creatinine Glucose POC Glucose 116 H 135 H Lactic Acid Uric Acid Calcium Phosphorus Iron TIBC Erythropoietin Ferritin Total Bilirubin Direct Bilirubin AST ALT Alkaline Phosphatase Lactate Dehydrogenase C-Reactive Protein Serum Total Protein Total Protein Albumin Xbsdx-6-Idxmwjjis Abnorm Protein Band 1 PEP Interpretation Crossmatch 10/24/16 10/24/16 10/24/16 07:00 11:45 12:12 WBC RBC Hgb Hct MCV MCHC RDW Plt Count Seg Neuts % (Manual) Lymphocytes % (Manual) Nucleated RBC % Seg Neutrophils # Man Lymphocytes # (Manual) Haptoglobin PT INR Fibrinogen Lupus Anticoagulant LA PTT Baseline POC ABG pH POC ABG pCO2 POC ABG pO2 Sodium Potassium Chloride 92.9 L Carbon Dioxide BUN 74 H Creatinine 3.3 H Glucose 136 H POC Glucose 177 H Lactic Acid Uric Acid Calcium 6.6 L Phosphorus Iron TIBC Erythropoietin Ferritin Total Bilirubin 2.10 H Direct Bilirubin AST 68 H ALT Alkaline Phosphatase 224 H Lactate Dehydrogenase C-Reactive Protein Serum Total Protein Total Protein 4.8 L Albumin 2.3 L Pgqgz-1-Qrkarjqsb Abnorm Protein Band 1 PEP Interpretation Crossmatch See Detail 10/24/16 10/24/16 10/24/16 16:30 16:30 17:28 WBC RBC Hgb Hct MCV MCHC RDW Plt Count Seg Neuts % (Manual) Lymphocytes % (Manual) Nucleated RBC % Seg Neutrophils # Man Lymphocytes # (Manual) Haptoglobin PT INR Fibrinogen Lupus Anticoagulant LA PTT Baseline POC ABG pH POC ABG pCO2 POC ABG pO2 Sodium Potassium Chloride Carbon Dioxide BUN Creatinine Glucose POC Glucose 128 H Lactic Acid 3.00 H* Uric Acid Calcium Phosphorus Iron TIBC Erythropoietin Ferritin Total Bilirubin Direct Bilirubin AST ALT Alkaline Phosphatase Lactate Dehydrogenase C-Reactive Protein 7.40 H Serum Total Protein Total Protein Albumin Jpeux-9-Jwdrcquqo Abnorm Protein Band 1 PEP Interpretation Crossmatch 10/24/16 10/24/16 10/25/16 18:40 23:32 05:00 WBC 17.5 H RBC 2.99 L Hgb 9.1 L Hct 26.9 L D MCV MCHC RDW 17.7 H Plt Count 53 L Seg Neuts % (Manual) Lymphocytes % (Manual) Nucleated RBC % Seg Neutrophils # Man Lymphocytes # (Manual) Haptoglobin PT INR Fibrinogen Lupus Anticoagulant LA PTT Baseline POC ABG pH POC ABG pCO2 POC ABG pO2 Sodium Potassium Chloride Carbon Dioxide BUN Creatinine Glucose POC Glucose 140 H Lactic Acid 3.10 H* Uric Acid Calcium Phosphorus Iron TIBC Erythropoietin Ferritin Total Bilirubin Direct Bilirubin AST ALT Alkaline Phosphatase Lactate Dehydrogenase C-Reactive Protein Serum Total Protein Total Protein Albumin Urgyh-7-Pgualdymf Abnorm Protein Band 1 PEP Interpretation Crossmatch 10/25/16 10/25/16 10/25/16 05:00 05:22 11:58 WBC RBC Hgb Hct MCV MCHC RDW Plt Count Seg Neuts % (Manual) Lymphocytes % (Manual) Nucleated RBC % Seg Neutrophils # Man Lymphocytes # (Manual) Haptoglobin PT INR Fibrinogen Lupus Anticoagulant LA PTT Baseline POC ABG pH POC ABG pCO2 POC ABG pO2 Sodium Potassium Chloride 91.6 L Carbon Dioxide BUN 89 H Creatinine 3.9 H Glucose 150 H POC Glucose 164 H 189 H Lactic Acid Uric Acid Calcium 6.9 L Phosphorus Iron TIBC Erythropoietin Ferritin Total Bilirubin Direct Bilirubin AST ALT Alkaline Phosphatase Lactate Dehydrogenase C-Reactive Protein Serum Total Protein Total Protein Albumin Ognsn-7-Bulkgdvxc Abnorm Protein Band 1 PEP Interpretation Crossmatch 10/25/16 10/25/16 10/26/16 17:56 23:12 04:00 WBC RBC Hgb Hct MCV MCHC RDW Plt Count Seg Neuts % (Manual) Lymphocytes % (Manual) Nucleated RBC % Seg Neutrophils # Man Lymphocytes # (Manual) Haptoglobin PT INR Fibrinogen Lupus Anticoagulant LA PTT Baseline POC ABG pH POC ABG pCO2 POC ABG pO2 Sodium 135 L Potassium Chloride 90.7 L Carbon Dioxide BUN 64 H Creatinine 2.9 H Glucose 132 H POC Glucose 156 H 133 H Lactic Acid Uric Acid Calcium 7.3 L Phosphorus Iron TIBC Erythropoietin Ferritin Total Bilirubin Direct Bilirubin AST ALT Alkaline Phosphatase Lactate Dehydrogenase C-Reactive Protein Serum Total Protein Total Protein Albumin Yytgh-2-Dqcxijeyq Abnorm Protein Band 1 PEP Interpretation Crossmatch 10/26/16 10/26/16 05:14 06:15 WBC 18.6 H RBC 3.15 L Hgb 9.6 L Hct 29.0 L MCV MCHC RDW 17.8 H Plt Count 71 L Seg Neuts % (Manual) 85.0 H Lymphocytes % (Manual) 1.0 L Nucleated RBC % Seg Neutrophils # Man 15.8 H Lymphocytes # (Manual) 0.2 L Haptoglobin PT INR Fibrinogen Lupus Anticoagulant LA PTT Baseline POC ABG pH POC ABG pCO2 POC ABG pO2 Sodium Potassium Chloride Carbon Dioxide BUN Creatinine Glucose POC Glucose 130 H Lactic Acid Uric Acid Calcium Phosphorus Iron TIBC Erythropoietin Ferritin Total Bilirubin Direct Bilirubin AST ALT Alkaline Phosphatase Lactate Dehydrogenase C-Reactive Protein Serum Total Protein Total Protein Albumin Lepsj-6-Allugqzxt Abnorm Protein Band 1 PEP Interpretation Crossmatch
--- NOTE | 2016-10-26 12:15 | Progress Note ---
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 Acute respiratory failure - intubated. Sepsis / beta hemolitic strep bacterimia / leukocytosis Paroxysmal atrial fibrillation with variable ventricular response --> SR Acute metabolic encephalopathy ARF on CKD - requiring HD Profound metabolic acidemia/lactic acidosis Anemia / thrombocytopenia - on plasmapheresis. Hypocalcemia Plan: Cont lopressor. Given anemia and thrombocytopenia, defer systemic anticoagulation for now. Plan for JONATHAN in AM. Consider ischemic evaluation once medically stabilized. No ACEI/ARB in setting of ARF on CKD. The patient has been seen in conjunction with Dr. Parikh who agrees with the assessment and plan of care. Subjective Date of service: 10/26/16 Principal diagnosis: Sepsis Syndrome; MAHA; RAJESH; CHF; TTP Interval history: Pt remains intubated, nonresponsive. Remains in SR. Objective Last Vital Signs Temp 99.3 F 10/26/16 08:00 Pulse 71 10/26/16 10:03 Resp 14 10/26/16 09:15 BP 138/87 10/26/16 09:20 Pulse Ox 96 10/26/16 09:15 - Physical Examination General: Other (intubated; nonresponsive ) HEENT: Positive: Jaundice Neck: Positive: neck supple, trachea midline. Negative: JVD/HJR Cardiac: Positive: Reg Rate and Rhythm, S1/S2 Lungs: Positive: Decreased Breath Sounds, Ventilated Respirations Neuro: Positive: Other (intubated; nonresponsive ) Abdomen: Positive: Soft, Active Bowel Sounds Skin: Positive: Clear. Negative: Rash, Wound Musculoskeletal: No Fluid Collection, No Pain, Normal Range of Motion Extremities: Present: upper extr. pulses, lower extr. pulses. Absent: edema - Labs and Meds CBC 10/26/16 Range/Units 06:15 WBC 18.6 H (4.5-11.0) K/mm3 RBC 3.15 L (3.65-5.03) M/mm3 Hgb 9.6 L (11.8-15.2) gm/dl Hct 29.0 L (35.5-45.6) % Plt Count 71 L (140-440) K/mm3 Comprehensive Metabolic Panel 10/26/16 Range/Units 04:00 Sodium 135 L (137-145) mmol/L Potassium 3.7 (3.6-5.0) mmol/L Chloride 90.7 L (98-107) mmol/L Carbon Dioxide 25 (22-30) mmol/L BUN 64 H (9-20) mg/dL Creatinine 2.9 H (0.8-1.5) mg/dL Glucose 132 H (75-100) mg/dL Calcium 7.3 L (8.4-10.2) mg/dL - Imaging and Cardiology EKG: report reviewed, image reviewed Echo: report reviewed - Telemetry EKG Rhythm: Sinus Rhythm - Allied health notes Allied health notes reviewed: RT
--- NOTE | 2016-10-26 14:37 | Progress Note ---
Assessment and Plan - Patient Problems (1) Renal failure Current Visit: Yes Status: Acute Qualifiers: Renal failure chronicity: acute Acute renal failure type: unspecified Chronic kidney disease stage: C Qualified Code(s): N17.9 - Acute kidney failure, unspecified Plan to address problem: Received hemodialysis yesterday No acute indication for HD today Strict I/O monitoring Avoid Nephrotoxic agents Renally dose medications Obtain daily weights Monitor renal function daily (2) Acute respiratory failure Current Visit: Yes Status: Acute Qualifiers: Respiratory failure complication: hypoxia Qualified Code(s): J96.01 - Acute respiratory failure with hypoxia Plan to address problem: Intubated as per Pulmonary (3) Anemia Current Visit: Yes Status: Acute Qualifiers: Anemia type: unspecified type Iron deficiency anemia type: I Vitamin B12 deficiency anemia type: V Folate deficiency anemia type: F Bone marrow failure anemia type: B Hemolytic anemia type: H Other causes of anemia: O Qualified Code(s): D64.9 - Anemia, unspecified Plan to address problem: Monitor labs and transfuse as needed Hematology onboard (4) Thrombocytopenia Current Visit: Yes Status: Acute Plan to address problem: Possible TTP Plasmaphareis therapy on hold until [id number] is resulted Hematology onboard (5) Atrial fibrillation Current Visit: Yes Status: Acute Qualifiers: Atrial fibrillation type: A Plan to address problem: For JONATHAN tomorrow as per Cardiology [facility] Subjective Date of service: 10/26/16 Principal diagnosis: Sepsis Syndrome; MAHA; RAJESH; CHF; TTP Interval history: Patient remains intubated. Unresponsive. Plasmapharesis on hold. No family at bedside. Objective - Vital Signs Vital signs: Vital Signs - 12hr 10/26/16 10/26/16 10/26/16 02:45 03:00 03:15 Temperature Pulse Rate 77 84 78 Pulse Rate [ From Monitor] Respiratory 18 18 19 Rate Blood Pressure 157/94 161/140 151/93 O2 Sat by Pulse 97 98 97 Oximetry 10/26/16 10/26/16 10/26/16 03:30 03:45 04:00 Temperature 99.0 F Pulse Rate 77 75 76 Pulse Rate [ 79 From Monitor] Respiratory 18 15 18 Rate Blood Pressure 149/92 147/91 144/90 O2 Sat by Pulse 99 96 97 Oximetry 10/26/16 10/26/16 10/26/16 04:15 04:30 04:45 Temperature Pulse Rate 75 76 75 Pulse Rate [ From Monitor] Respiratory 18 18 19 Rate Blood Pressure 139/87 147/93 143/89 O2 Sat by Pulse 97 97 97 Oximetry 10/26/16 10/26/16 10/26/16 05:00 05:10 05:15 Temperature Pulse Rate 76 77 77 Pulse Rate [ From Monitor] Respiratory 18 19 Rate Blood Pressure 146/88 146/88 141/85 O2 Sat by Pulse 98 100 96 Oximetry 10/26/16 10/26/16 10/26/16 05:30 05:45 06:00 Temperature Pulse Rate 77 74 75 Pulse Rate [ From Monitor] Respiratory 21 18 15 Rate Blood Pressure 150/90 141/83 135/84 O2 Sat by Pulse 97 96 98 Oximetry 10/26/16 10/26/16 10/26/16 06:15 06:30 06:45 Temperature Pulse Rate 78 80 74 Pulse Rate [ From Monitor] Respiratory 18 19 15 Rate Blood Pressure 142/94 138/86 142/86 O2 Sat by Pulse 97 98 98 Oximetry 10/26/16 10/26/16 10/26/16 07:00 07:15 07:30 Temperature Pulse Rate 77 77 75 Pulse Rate [ From Monitor] Respiratory 16 17 16 Rate Blood Pressure 148/90 158/98 145/92 O2 Sat by Pulse 97 95 Oximetry 10/26/16 10/26/16 10/26/16 07:45 08:00 08:10 Temperature 99.3 F Pulse Rate 75 77 77 Pulse Rate [ From Monitor] Respiratory 16 15 Rate Blood Pressure 149/93 156/97 145/92 O2 Sat by Pulse 95 97 99 Oximetry 10/26/16 10/26/16 10/26/16 08:15 08:30 08:45 Temperature Pulse Rate 77 76 74 Pulse Rate [ From Monitor] Respiratory 16 15 14 Rate Blood Pressure 151/96 144/90 138/89 O2 Sat by Pulse 95 95 98 Oximetry 10/26/16 10/26/16 10/26/16 09:00 09:15 09:20 Temperature Pulse Rate 74 78 79 Pulse Rate [ From Monitor] Respiratory 15 14 Rate Blood Pressure 138/87 146/98 138/87 O2 Sat by Pulse 96 Oximetry 10/26/16 10/26/16 10/26/16 09:30 09:45 10:00 Temperature Pulse Rate 73 75 74 Pulse Rate [ From Monitor] Respiratory 14 18 14 Rate Blood Pressure 136/84 145/92 140/90 O2 Sat by Pulse 97 Oximetry 10/26/16 10/26/16 10/26/16 10:03 10:15 10:30 Temperature Pulse Rate 71 72 73 Pulse Rate [ From Monitor] Respiratory 16 14 Rate Blood Pressure 145/90 137/86 O2 Sat by Pulse 95 Oximetry 10/26/16 10/26/16 10/26/16 10:45 11:00 11:15 Temperature Pulse Rate 72 74 74 Pulse Rate [ From Monitor] Respiratory 14 17 17 Rate Blood Pressure 129/80 139/88 144/88 O2 Sat by Pulse 96 96 Oximetry 10/26/16 10/26/16 10/26/16 11:30 11:45 12:00 Temperature 99.1 F Pulse Rate 78 76 75 Pulse Rate [ From Monitor] Respiratory 18 17 18 Rate Blood Pressure 140/93 142/90 142/91 O2 Sat by Pulse 97 95 100 Oximetry 10/26/16 10/26/16 10/26/16 12:15 12:30 12:45 Temperature Pulse Rate 76 75 76 Pulse Rate [ From Monitor] Respiratory 19 16 17 Rate Blood Pressure 147/92 137/87 138/87 O2 Sat by Pulse 97 96 97 Oximetry 10/26/16 10/26/16 10/26/16 12:53 13:00 13:15 Temperature Pulse Rate 76 75 73 Pulse Rate [ From Monitor] Respiratory 15 14 Rate Blood Pressure 147/92 131/85 126/81 O2 Sat by Pulse 97 96 98 Oximetry 10/26/16 10/26/16 10/26/16 13:30 13:45 14:00 Temperature Pulse Rate 75 76 74 Pulse Rate [ From Monitor] Respiratory 17 17 16 Rate Blood Pressure 132/85 131/84 123/78 O2 Sat by Pulse 97 Oximetry 10/26/16 14:15 Temperature Pulse Rate 77 Pulse Rate [ From Monitor] Respiratory 18 Rate Blood Pressure 130/82 O2 Sat by Pulse 99 Oximetry - General Appearance General appearance: intubated EENT: ATNC Neck: no JVD, supple Respiratory: Present: Decreased Breath Sounds Cardiology: S1S2 Gastrointestinal: normoactive bowel sounds, other (has dobhoff tube) Integumentary: warm and dry Neurologic: other (sedated and intubated) Musculoskeletal: joint swelling, other (2+ edema to BLE. Right vascular catheter intact.) - Lab 10/26/16 06:15 10/26/16 04:00 Most recent lab results Calcium 7.3 mg/dL (8.4-10.2) L 10/26/16 04:00 Phosphorus 6.30 mg/dL (2.5-4.5) H 10/19/16 06:00
--- NOTE | 2016-10-26 17:37 | Cat Scan Report ---
FINAL REPORT EXAM: CT HEAD/BRAIN WO CON HISTORY: ? ICH TECHNIQUE: CT examination of the head without IV contrast PRIORS: Brain MRI 10/23/[address] 10/22/2016 FINDINGS: Multiple hypodense lesions throughout the calvarium raise suspicion of metastatic lytic lesions. The The mastoid air cells and middle ear cavities are clear. The visualized paranasal sinuses are also clear. No acute fluid level evident. Small chronic appearing lacunar infarcts are unchanged in the left caudate body and left central aleksandra. Again noted are multifocal hypodense lesions containing central and eccentric hyperdensity suggestive of hemorrhage. The hemorrhagic component is slightly less dense suggesting decreased acuity compared to prior CT. There is also slight decreased cerebral hypodensity in the lesion region suggesting decreased associated cerebral edema. Lesions are again most notable in both occipital lobes, frontal lobes, and parietal lobes. Once again, temporal lobes are relatively spared. No involvement of the cerebellum or brainstem. No definite evidence of new lesion. No midline shift or definite mass effect. No evidence of extra-axial hemorrhage or mass. Again noted is slight global brain atrophy with prominence of sulci and ventricles. IMPRESSION: Again noted are multifocal brain lesions with slight decreased density in of hemorrhagic foci suggesting decreased acuity of the hemorrhage. There is also slight decreased adjacent hypodensity suggesting decreased cerebral edema from prior CT. These again suggest multifocal hemorrhagic infarcts. The differential again includes multifocal hemorrhagic metastatic foci especially given the fact that there is suggestion of multifocal calvarial lytic lesions. Another possibility remains multifocal hemorrhagic septic emboli.
--- NOTE | 2016-10-26 17:43 | Cat Scan Report ---
FINAL REPORT EXAM: CT ANGIO HEAD HISTORY: ? ICH TECHNIQUE: Head CT angiography with IV contrast 2D and 3D image reformation PRIORS: Head CT 10/26/2016, head CT 10/22/2016, and brain MRI 10/23/2016 FINDINGS: Please see same day head CT report for brain findings. Airway and esophageal tube partly visualized.The included carotid and basilar arteries reveal no significant abnormality. The visualized components of the [place] of [place] and its major branches are within normal limits to include the anterior, middle, and posterior cerebral arteries. Vessel caliber is normal diffusely without stenosis, occlusion, or aneurysm. No evidence of vascular malformation. 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 IMPRESSION: No definite CTA evidence of brain vascular pathology
--- NOTE | 2016-10-26 17:55 | Cat Scan Report ---
FINAL REPORT EXAM: CT ANGIO NECK HISTORY: ? ICH TECHNIQUE: Carotids/neck CT angiography with IV contrast 2D and 3D image reformation PRIORS: None. FINDINGS: Slight calcified atherosclerotic plaque at the carotid bifurcation bilaterally. Plaque and superimposed bone artifact is noted in the carotid siphon bilaterally. NG and endotracheal tubes in place, partly imaged. The vertebral and carotid arteries are bilaterally patent diffusely. Vessel caliber is normal without stenosis, ulceration, or aneurysm. There is no definite filling defect to suggest significant plaque. The visualized portion of the carotid, vertebral, and basilar arteries are normal. IMPRESSION: No evidence of neck vascular pathology aside from slight atherosclerotic plaque
--- NOTE | 2016-10-26 20:06 | Progress Note ---
Assessment and Plan Patient is a 61-year-old man with no significant past medical history who presented to the emergency department [facility] 10/13/16, complaining of bilateral leg swelling that worsened for the last 4 days. He was found to have severe metabolic acidosis, creatinine was 14.5 with hyperkalemia, emergent Hemodialysis was set up. He was found to have severe pancytopenia and thrombocytopenia. Dr. 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 He was on bipap and was intubated 10/16/16, details are not readily available on why he needed to be intubated, no nursing note for . -Acute metabolic encephalopathy, not sedated, will consult Neurology. -AFIB WITH RVR: Cardiology is following -Group B strep bacteremia: JONATHAN pending, but plt count too low, probably when plt count over 50k -Acute Respiratory failure with hypoxia, intubated on mechanical ventilation day #10. continue bronchodilators - POSSIBLE LYMPHOMA, ?DIC: heme/onc is following, on PLASMAPHERSIS, s/p PRBC transfusion -ARF/End-stage renal disease -secondary coagulopathy -Lactic acidosis -Probable TTP, HUS, Amyloidosis -Acute systolic congestive heart failure EF around 30% -SEVERE SEPSIS, poa Spent 35 minutes in critical care time Subjective Date of service: 10/26/16 Principal diagnosis: Sepsis Syndrome; MAHA; RAJESH; CHF; TTP Interval history: Still intubated and supported on mechanical ventilation. Remains unresponsive Objective - Constitutional Vitals: Vital Signs - 12hr 10/26/16 10/26/16 10/26/16 08:10 08:15 08:30 Temperature Pulse Rate 77 77 76 Respiratory 17 16 15 Rate Blood Pressure 145/92 151/96 144/90 O2 Sat by Pulse 99 95 95 Oximetry O2 Sat by Pulse Oximetry [ Anterior Bilateral Throughout] 10/26/16 10/26/16 10/26/16 08:45 09:00 09:15 Temperature Pulse Rate 74 74 78 Respiratory 14 15 14 Rate Blood Pressure 138/89 138/87 146/98 O2 Sat by Pulse 98 96 Oximetry O2 Sat by Pulse Oximetry [ Anterior Bilateral Throughout] 10/26/16 10/26/16 10/26/16 09:20 09:30 09:45 Temperature Pulse Rate 79 73 75 Respiratory 14 18 Rate Blood Pressure 138/87 136/84 145/92 O2 Sat by Pulse 97 Oximetry O2 Sat by Pulse Oximetry [ Anterior Bilateral Throughout] 10/26/16 10/26/16 10/26/16 10:00 10:03 10:15 Temperature Pulse Rate 74 71 72 Respiratory 14 16 Rate Blood Pressure 140/90 145/90 O2 Sat by Pulse 95 Oximetry O2 Sat by Pulse Oximetry [ Anterior Bilateral Throughout] 10/26/16 10/26/16 10/26/16 10:30 10:45 11:00 Temperature Pulse Rate 73 72 74 Respiratory 14 14 17 Rate Blood Pressure 137/86 129/80 139/88 O2 Sat by Pulse 96 Oximetry O2 Sat by Pulse Oximetry [ Anterior Bilateral Throughout] 10/26/16 10/26/16 10/26/16 11:15 11:30 11:45 Temperature Pulse Rate 74 78 76 Respiratory 17 18 17 Rate Blood Pressure 144/88 140/93 142/90 O2 Sat by Pulse 96 97 95 Oximetry O2 Sat by Pulse Oximetry [ Anterior Bilateral Throughout] 10/26/16 10/26/16 10/26/16 12:00 12:15 12:30 Temperature 99.1 F Pulse Rate 77 76 75 Respiratory 18 19 16 Rate Blood Pressure 142/91 147/92 137/87 O2 Sat by Pulse 100 97 96 Oximetry O2 Sat by Pulse Oximetry [ Anterior Bilateral Throughout] 10/26/16 10/26/16 10/26/16 12:45 12:53 13:00 Temperature Pulse Rate 76 76 75 Respiratory 17 16 15 Rate Blood Pressure 138/87 147/92 131/85 O2 Sat by Pulse 97 97 96 Oximetry O2 Sat by Pulse Oximetry [ Anterior Bilateral Throughout] 10/26/16 10/26/16 10/26/16 13:15 13:30 13:45 Temperature Pulse Rate 73 75 76 Respiratory 14 17 17 Rate Blood Pressure 126/81 132/85 131/84 O2 Sat by Pulse 98 97 Oximetry O2 Sat by Pulse Oximetry [ Anterior Bilateral Throughout] 10/26/16 10/26/16 10/26/16 14:00 14:15 14:30 Temperature Pulse Rate 74 77 75 Respiratory 16 18 17 Rate Blood Pressure 123/78 130/82 122/79 O2 Sat by Pulse 99 97 Oximetry O2 Sat by Pulse Oximetry [ Anterior Bilateral Throughout] 10/26/16 10/26/16 10/26/16 16:00 16:09 16:15 Temperature 99.0 F Pulse Rate 76 82 Respiratory 16 18 Rate Blood Pressure 139/90 167/107 O2 Sat by Pulse 100 100 96 Oximetry O2 Sat by Pulse Oximetry [ Anterior Bilateral Throughout] 10/26/16 10/26/16 10/26/16 16:20 16:30 16:45 Temperature Pulse Rate 75 74 72 Respiratory 17 17 13 Rate Blood Pressure 122/79 130/86 132/85 O2 Sat by Pulse 97 97 Oximetry O2 Sat by Pulse Oximetry [ Anterior Bilateral Throughout] 10/26/16 10/26/16 10/26/16 17:00 17:16 17:30 Temperature Pulse Rate 71 73 74 Respiratory 13 14 16 Rate Blood Pressure 134/88 133/88 142/89 O2 Sat by Pulse 100 100 95 Oximetry O2 Sat by Pulse Oximetry [ Anterior Bilateral Throughout] 10/26/16 10/26/16 10/26/16 17:46 18:00 18:15 Temperature 99.0 F Pulse Rate 76 74 73 Respiratory 16 16 13 Rate Blood Pressure 137/88 137/91 136/89 O2 Sat by Pulse 97 Oximetry O2 Sat by Pulse 98 Oximetry [ Anterior Bilateral Throughout] 10/26/16 10/26/16 10/26/16 18:16 18:30 18:45 Temperature Pulse Rate 74 70 70 Respiratory 16 Rate Blood Pressure 136/89 132/84 135/86 O2 Sat by Pulse 97 Oximetry O2 Sat by Pulse Oximetry [ Anterior Bilateral Throughout] 10/26/16 10/26/16 10/26/16 19:00 19:15 19:30 Temperature Pulse Rate 75 76 77 Respiratory Rate Blood Pressure 136/87 135/90 126/88 O2 Sat by Pulse Oximetry O2 Sat by Pulse Oximetry [ Anterior Bilateral Throughout] 10/26/16 10/26/16 19:45 19:57 Temperature 99.9 F H Pulse Rate 78 Respiratory Rate Blood Pressure 125/90 O2 Sat by Pulse Oximetry O2 Sat by Pulse Oximetry [ Anterior Bilateral Throughout] General appearance: Present: other (intubated and sedated. Connected to mechanical ventilation day number) - EENT Eyes: PERRL, EOM intact ENT: hearing intact, clear oral mucosa - Neck Neck: supple, normal ROM - Respiratory Respiratory effort: normal Respiratory: bilateral: diminished - Cardiovascular Rhythm: regular Heart Sounds: Present: S1 & S2. Absent: gallop, rub Extremities: pulses intact, No edema, normal color, Full ROM - Gastrointestinal General gastrointestinal: Present: soft, non-tender, non-distended, normal bowel sounds - Genitourinary Male genitourinary: normal - Integumentary Integumentary: clear, warm, dry - Musculoskeletal Musculoskeletal: 1, strength equal bilaterally - Neurologic Neurologic: moves all extremities - Psychiatric Psychiatric: memory intact, appropriate mood/affect, intact judgment & insight - Labs CBC & Chem 7: 10/26/16 06:15 10/26/16 04:00 Labs: Abnormal lab results 10/25/16 10/25/16 10/26/16 Range/Units 17:56 23:12 04:00 WBC (4.5-11.0) K/mm3 RBC (3.65-5.03) M/mm3 Hgb (11.8-15.2) gm/dl Hct (35.5-45.6) % RDW (13.2-15.2) % Plt Count (140-440) K/mm3 Seg Neuts % (Manual) (40.0-70.0) % Lymphocytes % (Manual) (13.4-35.0) % Seg Neutrophils # Man (1.8-7.7) K/mm3 Lymphocytes # (Manual) (1.2-5.4) K/mm3 Sodium 135 L (137-145) mmol/L Chloride 90.7 L (98-107) mmol/L BUN 64 H (9-20) mg/dL Creatinine 2.9 H (0.8-1.5) mg/dL Glucose 132 H (75-100) mg/dL POC Glucose 156 H 133 H (70-105) Calcium 7.3 L (8.4-10.2) mg/dL 10/26/16 10/26/16 10/26/16 Range/Units 05:14 06:15 11:51 WBC 18.6 H (4.5-11.0) K/mm3 RBC 3.15 L (3.65-5.03) M/mm3 Hgb 9.6 L (11.8-15.2) gm/dl Hct 29.0 L (35.5-45.6) % RDW 17.8 H (13.2-15.2) % Plt Count 71 L (140-440) K/mm3 Seg Neuts % (Manual) 85.0 H (40.0-70.0) % Lymphocytes % (Manual) 1.0 L (13.4-35.0) % Seg Neutrophils # Man 15.8 H (1.8-7.7) K/mm3 Lymphocytes # (Manual) 0.2 L (1.2-5.4) K/mm3 Sodium (137-145) mmol/L Chloride (98-107) mmol/L BUN (9-20) mg/dL Creatinine (0.8-1.5) mg/dL Glucose (75-100) mg/dL POC Glucose 130 H 139 H (70-105) Calcium (8.4-10.2) mg/dL
--- NOTE | 2016-10-26 22:53 | Consultation ---
History of Present Illness - Reason for Consult Consult date: 10/26/16 - History of Present Illness Patient seen and examined. Resting peacefully in bed and remains on the vent. No family member present in the room. As per nurse's report, the last 24h was uneventful. Will still hold off on plasmapheresis. Labs improving especially platelets now at 71. Supposedly, brain CT was repeated although there is no report seen at this time. As stated yesterday, error was made on part of lab staff regarding not drawing [id number] as ordered on admission. Lab was drawn this morning and there will be a delay of 3-5 days before resulting. In the maintime, will continue to monitor labs and f/u with dialysis. Past History Past Medical History: hypertension, other (Had shingles in November 27-) Past Surgical History: No surgical history Social history: , full code, other (Patienti s and lives with his ). denies: smoking, alcohol abuse, prescription drug abuse, IV drug use Family history: no significant family history Medications and Allergies Allergies Allergy/AdvReac Type Severity Reaction Status Date / Time No Known Allergies Allergy Unverified 10/13/16 09:41 Home Medications Medication Instructions Recorded Confirmed Last Taken Type Naproxen Sodium [Aleve TAB] 2 tab PO Q8H PRN 10/13/16 10/13/16 10/12/16 14:00 History Active Meds: Active Medications Acetaminophen (Tylenol) 1,000 mg [place] Q4H PRN PRN Reason: Pain, Mild (1-3) Last Admin: 10/20/16 15:40 Dose: 1,000 mg Acetaminophen (Tylenol) 650 mg FEEDTUBE Q6H PRN PRN Reason: Pain, Mild (1-3) Last Admin: 10/24/16 10:56 Dose: 650 mg Lipase/Protease/Amylase (Pancreaze Dr 10,500 Unit) 1 each FEEDTUBE PRN PRN PRN Reason: For Clogged Feeding Tube Dextrose (D50w (25gm)) 25 ml IV PRN PRN PRN Reason: Hypoglycemia Last Admin: 10/18/16 07:20 Dose: 25 ml Diphenhydramine HCl (Benadryl) 50 mg IV Q6H PRN PRN Reason: Itching Last Admin: 10/24/16 10:57 Dose: 50 mg Famotidine (Pepcid) 20 mg PO Q24H [facility] Last Admin: 10/26/16 09:20 Dose: 20 mg Furosemide (Lasix) 40 mg IV 0600,1800 [facility] Last Admin: 10/26/16 18:29 Dose: Not Given Haloperidol Lactate (Haldol) 5 mg IM Q6H PRN PRN Reason: Agitation Last Admin: 10/14/16 21:11 Dose: 5 mg Heparin Sodium (Porcine) (Heparin) 10,000 unit IV ROD PRN PRN Reason: for plasmapheresis- vascath Last Admin: 10/25/16 15:40 Dose: 10,000 unit Hydrocortisone Sodium Succinate (Solu-Cortef) 60 mg IV Q8HR EDWINA Last Admin: 10/26/16 22:14 Dose: 60 mg Hydrophilic Ointment (Vaseline Lip Therapy) 1 applic TP Q2H PRN PRN Reason: Dry Lips Sodium Chloride (Nacl 0.9%) 100 mls @ 999 mls/hr IV ROD PRN PRN Reason: Hypotension Norepinephrine (Levophed Drip 4 Mg/Ns 250 Ml) 4 mg in 250 mls @ 7.5 mls/hr IV TITR EDWINA; 2 MCG/MIN PRN Reason: Protocol Last Admin: 10/19/16 18:56 Dose: 4 mcg/min, 15 mls/hr Propofol (Diprivan 10 Mg/Ml) 1,000 mg in 100 mls @ 1.827 mls/hr IV TITR EDWINA; 5 MCG/KG/MIN PRN Reason: Protocol Last Titration: 10/20/16 10:12 Dose: 0 mcg/kg/min, 0 mls/hr Fentanyl Citrate (Fentanyl Drip Premix) 2,000 mcg in 100 mls @ 3.045 mls/hr IV TITR EDWINA; 1 MCG/KG/HR PRN Reason: Protocol Sodium Chloride (Nacl 0.9%) 100 mls @ 999 mls/hr IV ROD PRN PRN Reason: Hypotension Insulin Aspart (Novolog) 0 units SUB-Q Q6HR EDWINA PRN Reason: Protocol Last Admin: 10/26/16 18:29 Dose: Not Given Labetalol HCl (Normodyne) 20 mg IV Q6H PRN PRN Reason: Hypertension Last Admin: 10/25/16 05:33 Dose: 20 mg Metoprolol Tartrate (Lopressor) 25 mg PO BID [facility] Last Admin: 10/26/16 22:15 Dose: Not Given Multi-Ingred Cream/Lotion/Oil/Oint (Artificial Tears Ophth Oint) 1 applic OU Q4H PRN PRN Reason: Dry Eye(s) Ondansetron HCl (Zofran) 4 mg IV Q8H PRN PRN Reason: Nausea And Vomiting Simple Syrup (Simple Syrup) 15 ml FEEDTUBE PRN PRN PRN Reason: Hypoglycemia Simple Syrup (Simple Syrup) 30 ml FEEDTUBE PRN PRN PRN Reason: Hypoglycemia Sodium Bicarbonate (Sodium Bicarbonate) 325 mg FEEDTUBE PRN PRN PRN Reason: For Clogged Feeding Tube Sodium Chloride (Sodium Chloride Flush Syringe 10 Ml) 10 ml IV PRN PRN PRN Reason: LINE FLUSH Last Admin: 10/17/16 20:45 Dose: 10 ml Vancomycin HCl (Vancomycin Pharmacy To Dose) 1 each IV PKCONSULT EDWINA PRN Reason: Protocol Review of Systems Constitutional: other (remains on vent and still unresponsive.) Respiratory: other (on the vent) Exam - Constitutional Vitals: Temp Pulse Resp BP Pulse Ox 99.9 F H 72 18 109/72 99 10/26/16 19:57 10/26/16 22:15 10/26/16 22:00 10/26/16 22:15 10/26/16 22:00 General appearance: Present: severe distress - EENT Eyes: Present: PERRL - Neck Neck: Present: supple, normal ROM - Respiratory Respiratory: bilateral: other (on the vent) - Cardiovascular Heart Sounds: Present: S1 & S2. Absent: rub, click - Extremities Extremities: pulses symmetrical, No edema Peripheral Pulses: within normal limits - Abdominal General gastrointestinal: Present: soft, non-tender, non-distended, normal bowel sounds Male genitourinary: Present: deferred - Rectal Rectal Exam: deferred - Integumentary Integumentary: Present: clear, warm, dry Results - Labs CBC & Chem 7: 10/26/16 06:15 10/26/16 04:00 Labs: Abnormal lab results 10/25/16 10/26/16 10/26/16 Range/Units 23:12 04:00 05:14 WBC (4.5-11.0) K/mm3 RBC (3.65-5.03) M/mm3 Hgb (11.8-15.2) gm/dl Hct (35.5-45.6) % RDW (13.2-15.2) % Plt Count (140-440) K/mm3 Seg Neuts % (Manual) (40.0-70.0) % Lymphocytes % (Manual) (13.4-35.0) % Seg Neutrophils # Man (1.8-7.7) K/mm3 Lymphocytes # (Manual) (1.2-5.4) K/mm3 Sodium 135 L (137-145) mmol/L Chloride 90.7 L (98-107) mmol/L BUN 64 H (9-20) mg/dL Creatinine 2.9 H (0.8-1.5) mg/dL Glucose 132 H (75-100) mg/dL POC Glucose 133 H 130 H (70-105) Calcium 7.3 L (8.4-10.2) mg/dL 10/26/16 10/26/16 10/26/16 Range/Units 06:15 11:51 17:25 WBC 18.6 H (4.5-11.0) K/mm3 RBC 3.15 L (3.65-5.03) M/mm3 Hgb 9.6 L (11.8-15.2) gm/dl Hct 29.0 L (35.5-45.6) % RDW 17.8 H (13.2-15.2) % Plt Count 71 L (140-440) K/mm3 Seg Neuts % (Manual) 85.0 H (40.0-70.0) % Lymphocytes % (Manual) 1.0 L (13.4-35.0) % Seg Neutrophils # Man 15.8 H (1.8-7.7) K/mm3 Lymphocytes # (Manual) 0.2 L (1.2-5.4) K/mm3 Sodium (137-145) mmol/L Chloride (98-107) mmol/L BUN (9-20) mg/dL Creatinine (0.8-1.5) mg/dL Glucose (75-100) mg/dL POC Glucose 139 H 118 H (70-105) Calcium (8.4-10.2) mg/dL Assessment and Plan - Patient Problems (1) Anemia Current Visit: Yes Status: Acute Qualifiers: Anemia type: unspecified type Iron deficiency anemia type: I Vitamin B12 deficiency anemia type: V Folate deficiency anemia type: F Bone marrow failure anemia type: B Hemolytic anemia type: H Other causes of anemia: O Qualified Code(s): D64.9 - Anemia, unspecified Plan to address problem: post transfusion. remains stable. (2) Leucopenia Current Visit: Yes Status: Acute Qualifiers: Leukopenia type: unspecified Neutropenia type: N Qualified Code(s): D72.819 - Decreased white blood cell count, unspecified Plan to address problem: same as above. resolved. Same as above (3) Renal failure Current Visit: Yes Status: Acute Qualifiers: Renal failure chronicity: acute Acute renal failure type: unspecified Chronic kidney disease stage: C Qualified Code(s): N17.9 - Acute kidney failure, unspecified Plan to address problem: See w/up, and renal service. see notes Follow [employer].
[2016-10-27] MEDS: NOVOLOG SUB-Q SCH ×4 (00:14→19:13)
[2016-10-27 04:24] LABS: Hemoglobin 10.1 gm/dl (11.8-15.2); Mean Corpuscular HGB Conc 33 % (32-34); Mean Corpuscular Hemoglobin 30 pg (28-32); Mean Corpuscular Volume 92 fl (84-94); Red Blood Count 3.38 M/mm3 (3.65-5.03); White Blood Count 16.8 K/mm3 (4.5-11.0)
[2016-10-27 04:26] LABS: Platelet Count 77 K/mm3 (140-440)
[2016-10-27 04:44] LABS: BUN/Creatinine Ratio 22.5; Calcium 7.5 mg/dL (8.4-10.2); Chloride 95.5 mmol/L (98-107); Potassium 4.1 mmol/L (3.6-5.0)
[2016-10-27] MEDS: LASIX IV SCH (05:22)
[2016-10-27 06:22] LABS: Anisocytosis 1+; Basophils % (Manual) 0 % (0.0-1.8); Blastocytes % (Manual) 0 %
[2016-10-27 06:23] LABS: Diff Status Complete; Giant Platelets Rare; Large Platelets 1+; Platelet Estimate Consistent w Auto
--- NOTE | 2016-10-27 06:49 | Progress Note ---
Assessment and Plan - Patient Problems (1) Sepsis Current Visit: Yes Status: Acute Qualifiers: Sepsis type: Streptococcus group B Qualified Code(s): A40.1 - Sepsis due to streptococcus, group B Plan to address problem: 1. JONATHAN is negative for vegetations/ PFO. 2. Vancomycin 14-day course should be completed on October 31, 2016. 3. Because lines were placed while patient was still bacteremic, will continue for an additional duration. Duration TBD. 4. Lines can be exchanged or removed when feasible before stopping antibiotics. If prolonged, may stop after ~21 days then monitor closely for signs of sepsis recurrence. 5. Checking stool for Cdiff toxin. Starting Flagyl. Subjective Date of service: 10/27/16 Principal diagnosis: Sepsis Syndrome; MAHA; RAJESH; CHF; TTP Interval history: Remains critically ill in ICU. Afebrile. Objective - Exam Narrative Exam: intubated, FiO2 25% - Constitutional Vitals: Vital Signs Temp Pulse Resp BP Pulse Ox 96.7 F L 68 18 132/91 100 10/27/16 04:00 10/27/16 05:30 10/27/16 05:30 10/27/16 05:30 10/27/16 05:30 Temperature -Last 24 Hours Temperature 96.7 F Temperature 97.9 F Temperature 99.9 F Temperature 99.9 F Temperature 99.0 F Temperature 99.0 F Temperature 99.1 F Temperature 99.3 F General appearance: Present: no acute distress - EENT Eyes: no scleral icterus, no conjunctival injection ENT: other (ET and Dobhoff tubes in place) - Respiratory Respiratory: bilateral: CTA - Cardiovascular Rhythm: regular Heart Sounds: Present: S1 & S2 Extremities: No edema - Gastrointestinal General gastrointestinal: Present: soft, non-distended, other (rectal tube with watery, brown stool) - Integumentary Integumentary: no erythema (patchy areas of ecchymoses), no rash - Psychiatric Psychiatric: other (minimal responsiveness to tactile/ verbal stimuli) - Labs CBC & Chem 7: 10/27/16 04:10 10/27/16 04:10 Labs: Abnormal lab results 10/26/16 10/26/16 10/26/16 Range/Units 04:00 06:15 11:51 WBC 18.6 H (4.5-11.0) K/mm3 RBC 3.15 L (3.65-5.03) M/mm3 Hgb 9.6 L (11.8-15.2) gm/dl Hct 29.0 L (35.5-45.6) % RDW 17.8 H (13.2-15.2) % Plt Count 71 L (140-440) K/mm3 Seg Neuts % (Manual) 85.0 H (40.0-70.0) % Lymphocytes % (Manual) 1.0 L (13.4-35.0) % Nucleated RBC % (0.0-0.9) % Seg Neutrophils # Man 15.8 H (1.8-7.7) K/mm3 Lymphocytes # (Manual) 0.2 L (1.2-5.4) K/mm3 Sodium 135 L (137-145) mmol/L Chloride 90.7 L (98-107) mmol/L BUN 64 H (9-20) mg/dL Creatinine 2.9 H (0.8-1.5) mg/dL Glucose 132 H (75-100) mg/dL POC Glucose 139 H (70-105) Calcium 7.3 L (8.4-10.2) mg/dL 10/26/16 10/26/16 10/27/16 Range/Units 17:25 23:35 04:10 WBC 16.8 H (4.5-11.0) K/mm3 RBC 3.38 L (3.65-5.03) M/mm3 Hgb 10.1 L (11.8-15.2) gm/dl Hct 31.0 L (35.5-45.6) % RDW 18.0 H (13.2-15.2) % Plt Count 77 L (140-440) K/mm3 Seg Neuts % (Manual) 92.0 H (40.0-70.0) % Lymphocytes % (Manual) 1.0 L (13.4-35.0) % Nucleated RBC % 1.0 H (0.0-0.9) % Seg Neutrophils # Man 15.5 H (1.8-7.7) K/mm3 Lymphocytes # (Manual) 0.2 L (1.2-5.4) K/mm3 Sodium (137-145) mmol/L Chloride (98-107) mmol/L BUN (9-20) mg/dL Creatinine (0.8-1.5) mg/dL Glucose (75-100) mg/dL POC Glucose 118 H 145 H (70-105) Calcium (8.4-10.2) mg/dL 10/27/16 10/27/16 Range/Units 04:10 05:53 WBC (4.5-11.0) K/mm3 RBC (3.65-5.03) M/mm3 Hgb (11.8-15.2) gm/dl Hct (35.5-45.6) % RDW (13.2-15.2) % Plt Count (140-440) K/mm3 Seg Neuts % (Manual) (40.0-70.0) % Lymphocytes % (Manual) (13.4-35.0) % Nucleated RBC % (0.0-0.9) % Seg Neutrophils # Man (1.8-7.7) K/mm3 Lymphocytes # (Manual) (1.2-5.4) K/mm3 Sodium (137-145) mmol/L Chloride 95.5 L (98-107) mmol/L BUN 63 H (9-20) mg/dL Creatinine 2.8 H (0.8-1.5) mg/dL Glucose 112 H (75-100) mg/dL POC Glucose 127 H (70-105) Calcium 7.5 L (8.4-10.2) mg/dL Microbiology 10/16/16 21:15 Peripheral/Venous Blood Culture - Final NO GROWTH AFTER 5 DAYS 10/16/16 20:30 Peripheral/Venous Blood Culture - Final NO GROWTH AFTER 5 DAYS 10/16/16 21:00 Tracheal Aspirate Sputum Culture - Final Sara Albicans 10/14/16 16:15 Peripheral/Venous Blood Culture - Preliminary Beta Hemolytic Strep Group B 10/14/16 15:33 Peripheral/Venous Blood Culture - Preliminary Beta Hemolytic Strep Group B Active Medications Acetaminophen (Tylenol) 1,000 mg [place] Q4H PRN PRN Reason: Pain, Mild (1-3) Last Admin: 10/20/16 15:40 Dose: 1,000 mg Acetaminophen (Tylenol) 650 mg FEEDTUBE Q6H PRN PRN Reason: Pain, Mild (1-3) Last Admin: 10/24/16 10:56 Dose: 650 mg Lipase/Protease/Amylase (Pancreaze Dr 10,500 Unit) 1 each FEEDTUBE PRN PRN PRN Reason: For Clogged Feeding Tube Dextrose (D50w (25gm)) 25 ml IV PRN PRN PRN Reason: Hypoglycemia Last Admin: 10/18/16 07:20 Dose: 25 ml Diphenhydramine HCl (Benadryl) 50 mg IV Q6H PRN PRN Reason: Itching Last Admin: 10/24/16 10:57 Dose: 50 mg Famotidine (Pepcid) 20 mg PO Q24H EDWINA Last Admin: 10/26/16 09:20 Dose: 20 mg Furosemide (Lasix) 40 mg IV 0600,1800 [facility]WINA Last Admin: 10/27/16 05:22 Dose: 40 mg Haloperidol Lactate (Haldol) 5 mg IM Q6H PRN PRN Reason: Agitation Last Admin: 10/14/16 21:11 Dose: 5 mg Heparin Sodium (Porcine) (Heparin) 10,000 unit IV ROD PRN PRN Reason: for plasmapheresis- vascath Last Admin: 10/25/16 15:40 Dose: 10,000 unit Hydrocortisone Sodium Succinate (Solu-Cortef) 60 mg IV Q8HR EDWINA Last Admin: 10/27/16 05:23 Dose: 60 mg Hydrophilic Ointment (Vaseline Lip Therapy) 1 applic TP Q2H PRN PRN Reason: Dry Lips Sodium Chloride (Nacl 0.9%) 100 mls @ 999 mls/hr IV ROD PRN PRN Reason: Hypotension Norepinephrine (Levophed Drip 4 Mg/Ns 250 Ml) 4 mg in 250 mls @ 7.5 mls/hr IV TITR EDWINA; 2 MCG/MIN PRN Reason: Protocol Last Admin: 10/19/16 18:56 Dose: 4 mcg/min, 15 mls/hr Propofol (Diprivan 10 Mg/Ml) 1,000 mg in 100 mls @ 1.827 mls/hr IV TITR EDWINA; 5 MCG/KG/MIN PRN Reason: Protocol Last Titration: 10/20/16 10:12 Dose: 0 mcg/kg/min, 0 mls/hr Fentanyl Citrate (Fentanyl Drip Premix) 2,000 mcg in 100 mls @ 3.045 mls/hr IV TITR EDWINA; 1 MCG/KG/HR PRN Reason: Protocol Sodium Chloride (Nacl 0.9%) 100 mls @ 999 mls/hr IV ROD PRN PRN Reason: Hypotension Insulin Aspart (Novolog) 0 units SUB-Q Q6HR EDWINA PRN Reason: Protocol Last Admin: 10/27/16 05:23 Dose: Not Given Labetalol HCl (Normodyne) 20 mg IV Q6H PRN PRN Reason: Hypertension Last Admin: 10/25/16 05:33 Dose: 20 mg Metoprolol Tartrate (Lopressor) 25 mg PO BID [facility] Last Admin: 10/26/16 22:15 Dose: Not Given Multi-Ingred Cream/Lotion/Oil/Oint (Artificial Tears Ophth Oint) 1 applic OU Q4H PRN PRN Reason: Dry Eye(s) Ondansetron HCl (Zofran) 4 mg IV Q8H PRN PRN Reason: Nausea And Vomiting Simple Syrup (Simple Syrup) 15 ml FEEDTUBE PRN PRN PRN Reason: Hypoglycemia Simple Syrup (Simple Syrup) 30 ml FEEDTUBE PRN PRN PRN Reason: Hypoglycemia Sodium Bicarbonate (Sodium Bicarbonate) 325 mg FEEDTUBE PRN PRN PRN Reason: For Clogged Feeding Tube Sodium Chloride (Sodium Chloride Flush Syringe 10 Ml) 10 ml IV PRN PRN PRN Reason: LINE FLUSH Last Admin: 10/17/16 20:45 Dose: 10 ml Vancomycin HCl (Vancomycin Pharmacy To Dose) 1 each IV PKCONSULT EDWINA PRN Reason: Protocol - Imaging and cardiology Other: report reviewed (JONATHAN shows no vegetations on valves, negative bubble study)
[2016-10-27] MEDS ORDERED: DIPRIVAN 10 MG/ML IV ONE (08:31)
[2016-10-27 08:42] LABS: INR 2.03 (0.87-1.13)
--- NOTE | 2016-10-27 10:22 | XRay Report ---
PORTABLE CHEST INDICATION: Follow up respiratory failure. COMPARISON: Yesterday. FINDINGS: Portable, frontal chest radiograph, 3 AM, 10/21/2016 demonstrates stable cardiomediastinal silhouette/mild cardiomegaly, various supporting devices, EKG leads and osseous structures. Slight increased left basilar hazy atelectasis/consolidation/pleural fluid with left hemidiaphragm now obscured. Gaseous gastric distention again partially imaged. CONCLUSION: Mild interval radiographic worsening of hazy left basilar opacity. Stable supporting devices. Please note that this exam is now made available to me for interpretation. Thank you for the opportunity to participate in this patient's care.
--- NOTE | 2016-10-27 10:34 | Progress Note ---
Assessment and Plan 61 YO M Hx HTN admitted 10/13 w/ sepsis w/ bacteremia, severe metabolic acidosis , RAJESH requiring emergent HD, severe pancytopenia, ? DIC vs. HUS vs. TTP on Plasmapheresis and acute respiratory failure with hypoxia s/p intubation. There has not been cleared documented episode of cardiac arrest but pt was hypotensive during admission. On exam eyes open to stimlation, stuporous MS poor concentration, paucity of speech, intact brainstem reflexes but not able to follow midline/peripheral commands w/ grossly intact motor-sensory exam as withdraws from pain in UE but triple flexion LE but otherwise grossly intact symmetric neurologic exam, consistent with toxic metabolic infectious derangement as the etiology for neurologic decompensation. CTH 10/13 vague L anterior internal capsule hypodensities and chronic lacunes L brainstem and L periventricular white matter. B12/TSH/NH4 normal. MRI brain reveals b/l scattered subcortical/ cortical ischemia w/ T2 hyperintensities predominantly in the posterior regions and watershed areas suspicious for PRES vs. watershed infarct with slight hemorrhagic transformation but no herniation/mass effect/midline shift. No Stone dispensed d/t RAJESH. TTE w/o endocarditis/thrombus. Recommendations: 1. Check f/u CTH and CTA H/N 2. Cont Infectious work up/medical management for UTI, PNA, cellulitis, bacteremia, etc. 3. Avoid hyponatremia, hypo/hyper-calcemia, hypo/hyperglycemia, acidosis, hypoxia/hypoxemia, hypercarbia/hypercapnia 4. Avoid institution of any psychoactive medications (e.g. antihistamines, anticholinergics, BZD, hypnotics, opiates) as able unless low doses of low potency antipsychotic needed for behavioral issues complicating medical care 5. Thiamine/Folate/CIWA protocol accordingly for any hx obtained to suggest EtOH withdrawal 6. Cont home meds-there is no neurologic indication to change Subjective Date of service: 10/27/16 Principal diagnosis: Sepsis Syndrome; MAHA; RAJESH; CHF; TTP Interval history: no interval changes/events Objective - Vital Sign Vital Signs - 12hr 10/26/16 10/26/16 10/26/16 23:00 23:30 23:46 Temperature 97.9 F Pulse Rate 72 70 78 Pulse Rate [ From Monitor] Respiratory 18 18 18 Rate Respiratory Rate [BILATERAL KNEES] Blood Pressure 106/69 125/82 143/93 O2 Sat by Pulse 100 100 100 Oximetry 10/26/16 10/26/16 10/27/16 23:47 23:59 00:00 Temperature Pulse Rate 95 H 78 Pulse Rate [ 70 From Monitor] Respiratory 18 20 18 Rate Respiratory Rate [BILATERAL KNEES] Blood Pressure 134/89 148/94 O2 Sat by Pulse 100 100 100 Oximetry 10/27/16 10/27/16 10/27/16 00:02 00:30 01:00 Temperature Pulse Rate 76 76 72 Pulse Rate [ From Monitor] Respiratory 18 18 18 Rate Respiratory Rate [BILATERAL KNEES] Blood Pressure 148/94 140/87 111/73 O2 Sat by Pulse 100 100 100 Oximetry 10/27/16 10/27/16 10/27/16 01:30 02:00 02:30 Temperature Pulse Rate 74 71 71 Pulse Rate [ From Monitor] Respiratory 18 18 18 Rate Respiratory Rate [BILATERAL KNEES] Blood Pressure 126/83 111/73 109/72 O2 Sat by Pulse 100 99 100 Oximetry 10/27/16 10/27/16 10/27/16 03:00 03:30 04:00 Temperature 96.7 F L Pulse Rate 73 84 68 Pulse Rate [ 69 From Monitor] Respiratory 18 15 18 Rate Respiratory Rate [BILATERAL KNEES] Blood Pressure 113/77 113/77 125/89 O2 Sat by Pulse 100 99 100 Oximetry 10/27/16 10/27/16 10/27/16 04:30 05:00 05:30 Temperature Pulse Rate 69 69 68 Pulse Rate [ From Monitor] Respiratory 18 18 18 Rate Respiratory Rate [BILATERAL KNEES] Blood Pressure 125/89 124/86 132/91 O2 Sat by Pulse 100 97 100 Oximetry 10/27/16 10/27/16 10/27/16 06:00 06:30 07:00 Temperature Pulse Rate 66 68 68 Pulse Rate [ From Monitor] Respiratory 18 18 18 Rate Respiratory Rate [BILATERAL KNEES] Blood Pressure 119/82 122/83 124/85 O2 Sat by Pulse 100 100 100 Oximetry 10/27/16 10/27/16 10/27/16 07:30 08:00 08:30 Temperature 98.7 F Pulse Rate 68 70 69 Pulse Rate [ 72 From Monitor] Respiratory 18 18 18 Rate Respiratory Rate [BILATERAL KNEES] Blood Pressure 122/86 120/82 109/75 O2 Sat by Pulse 99 99 100 Oximetry 10/27/16 10/27/16 10/27/16 08:57 09:00 09:30 Temperature Pulse Rate 70 74 72 Pulse Rate [ From Monitor] Respiratory 17 18 Rate Respiratory Rate [BILATERAL KNEES] Blood Pressure 109/75 138/100 127/84 O2 Sat by Pulse 100 99 100 Oximetry 10/27/16 10:00 Temperature Pulse Rate 71 Pulse Rate [ From Monitor] Respiratory 18 Rate Respiratory 28 H Rate [BILATERAL KNEES] Blood Pressure 128/82 O2 Sat by Pulse 100 Oximetry - General Apperance Constitutional: acutely ill, chronically ill - EENT EENT: ATNC, mucous membranes dry, hearing intact - Respiratory Respiratory: chest non-tender, decreased breath sounds - Cardiovascular Cardiovascular: regular rate Extremities: no peripheral edema bilat, no clubbing, cyanosis, no inflammation, no ischemia or petechiae - Gastrointestinal Gastrointestinal: normoactive bowel sounds, soft, non-distended - Integumentary Integumentary: normal - Neurologic Cranial nerve examination: PERRL, face symmetric, Intact Vestibulo-ocular r, intact corneal reflex Speech examination: other (intubated no speech, poor attention) Detailed motor examination: other (UE withdrawl to pain 1-2/5 and LE triple flexion) Motor examination - right side: 2/5: biceps, triceps, wrist flexion, wrist extension, 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 Motor examination - left side: 2/5: biceps, triceps, wrist flexion, wrist extension, 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 Detailed sensory examination: intact, pain Reflex and gait examination: Babinski's sign (b/l) - Musculoskeletal Musculoskeletal: no fluid collection, no pain, normal range of motion - Laboratory Findings CBC and BMP: 10/27/16 04:10 10/27/16 04:10 Abnormal Lab Findings: Abnormal Labs 10/13/16 10/13/16 10/13/16 14:50 21:40 22:05 WBC RBC Hgb Hct MCV MCHC RDW Plt Count Seg Neuts % (Manual) Lymphocytes % (Manual) Nucleated RBC % Seg Neutrophils # Man Lymphocytes # (Manual) Haptoglobin PT INR Fibrinogen Lupus Anticoagulant LA PTT Baseline POC ABG pH POC ABG pCO2 POC ABG pO2 Sodium Potassium Chloride Carbon Dioxide BUN Creatinine Glucose POC Glucose 52 L 43 L Lactic Acid Uric Acid Calcium Phosphorus Iron TIBC Erythropoietin Ferritin Total Bilirubin Direct Bilirubin AST ALT Alkaline Phosphatase Lactate Dehydrogenase C-Reactive Protein Serum Total Protein 5.6 L Total Protein Albumin 2.2 L Xtwmz-6-Dlisndkqh 0.5 H Abnorm Protein Band 1 1.4 H PEP Interpretation see below H Crossmatch 10/13/16 10/14/16 10/14/16 23:18 03:00 03:00 WBC RBC Hgb Hct MCV MCHC RDW Plt Count Seg Neuts % (Manual) Lymphocytes % (Manual) Nucleated RBC % Seg Neutrophils # Man Lymphocytes # (Manual) Haptoglobin PT INR Fibrinogen Lupus Anticoagulant see below H LA PTT Baseline 55 H POC ABG pH POC ABG pCO2 POC ABG pO2 Sodium Potassium Chloride Carbon Dioxide BUN Creatinine Glucose POC Glucose 113 H Lactic Acid Uric Acid Calcium Phosphorus Iron TIBC Erythropoietin Ferritin Total Bilirubin Direct Bilirubin AST ALT Alkaline Phosphatase Lactate Dehydrogenase 406 H C-Reactive Protein Serum Total Protein Total Protein Albumin Lafby-5-Kadrghqgt Abnorm Protein Band 1 PEP Interpretation Crossmatch 10/14/16 10/14/16 10/14/16 03:00 03:00 04:34 WBC 1.3 L* RBC 2.33 L Hgb 7.3 L Hct 21.7 L MCV MCHC RDW 19.8 H Plt Count 99 L Seg Neuts % (Manual) Lymphocytes % (Manual) 3.0 L Nucleated RBC % Seg Neutrophils # Man 0.9 L Lymphocytes # (Manual) 0.0 L Haptoglobin PT INR Fibrinogen Lupus Anticoagulant LA PTT Baseline POC ABG pH POC ABG pCO2 POC ABG pO2 Sodium Potassium Chloride Carbon Dioxide 18 L BUN 73 H Creatinine 9.8 H Glucose 59 L POC Glucose Lactic Acid Uric Acid 8.0 H Calcium 8.2 L Phosphorus 6.60 H Iron 13 L TIBC 160 L Erythropoietin Ferritin Total Bilirubin Direct Bilirubin AST ALT Alkaline Phosphatase Lactate Dehydrogenase C-Reactive Protein Serum Total Protein Total Protein Albumin Uzhhy-9-Shefxkxdw Abnorm Protein Band 1 PEP Interpretation Crossmatch 10/14/16 10/14/16 10/14/16 05:27 06:29 07:34 WBC RBC Hgb Hct MCV MCHC RDW Plt Count Seg Neuts % (Manual) Lymphocytes % (Manual) Nucleated RBC % Seg Neutrophils # Man Lymphocytes # (Manual) Haptoglobin PT INR Fibrinogen Lupus Anticoagulant LA PTT Baseline POC ABG pH POC ABG pCO2 POC ABG pO2 Sodium Potassium Chloride Carbon Dioxide BUN Creatinine Glucose POC Glucose < 40 L 63 L < 40 L Lactic Acid Uric Acid Calcium Phosphorus Iron TIBC Erythropoietin Ferritin Total Bilirubin Direct Bilirubin AST ALT Alkaline Phosphatase Lactate Dehydrogenase C-Reactive Protein Serum Total Protein Total Protein Albumin Uxmmr-6-Jdzluksmh Abnorm Protein Band 1 PEP Interpretation Crossmatch 10/14/16 10/14/16 10/14/16 09:58 09:58 09:58 WBC RBC Hgb Hct MCV MCHC RDW Plt Count Seg Neuts % (Manual) Lymphocytes % (Manual) Nucleated RBC % Seg Neutrophils # Man Lymphocytes # (Manual) Haptoglobin 218 H PT INR Fibrinogen 557 H Lupus Anticoagulant LA PTT Baseline POC ABG pH POC ABG pCO2 POC ABG pO2 Sodium Potassium Chloride Carbon Dioxide BUN Creatinine Glucose POC Glucose Lactic Acid Uric Acid Calcium Phosphorus Iron TIBC Erythropoietin Ferritin Total Bilirubin 1.30 H Direct Bilirubin 1.1 H AST ALT Alkaline Phosphatase Lactate Dehydrogenase C-Reactive Protein Serum Total Protein Total Protein Albumin Bsvwk-1-Ishwulvrr Abnorm Protein Band 1 PEP Interpretation Crossmatch 10/14/16 10/14/16 10/14/16 10:57 11:15 12:52 WBC RBC Hgb Hct MCV MCHC RDW Plt Count Seg Neuts % (Manual) Lymphocytes % (Manual) Nucleated RBC % Seg Neutrophils # Man Lymphocytes # (Manual) Haptoglobin PT INR Fibrinogen Lupus Anticoagulant LA PTT Baseline POC ABG pH POC ABG pCO2 POC ABG pO2 Sodium Potassium Chloride Carbon Dioxide BUN Creatinine Glucose POC Glucose < 40 L < 40 L Lactic Acid 9.60 H* Uric Acid Calcium Phosphorus Iron TIBC Erythropoietin Ferritin Total Bilirubin Direct Bilirubin AST ALT Alkaline Phosphatase Lactate Dehydrogenase C-Reactive Protein Serum Total Protein Total Protein Albumin Calyh-9-Shblhedyr Abnorm Protein Band 1 PEP Interpretation Crossmatch 10/14/16 10/14/16 10/14/16 12:52 13:17 14:12 WBC RBC Hgb Hct MCV MCHC RDW Plt Count Seg Neuts % (Manual) Lymphocytes % (Manual) Nucleated RBC % Seg Neutrophils # Man Lymphocytes # (Manual) Haptoglobin PT INR Fibrinogen Lupus Anticoagulant LA PTT Baseline POC ABG pH POC ABG pCO2 POC ABG pO2 Sodium Potassium Chloride Carbon Dioxide BUN Creatinine Glucose POC Glucose < 40 L < 40 L Lactic Acid Uric Acid Calcium Phosphorus Iron TIBC Erythropoietin Ferritin Total Bilirubin Direct Bilirubin AST ALT Alkaline Phosphatase Lactate Dehydrogenase C-Reactive Protein 40.40 H Serum Total Protein Total Protein Albumin Tndvp-1-Abpyfgaae Abnorm Protein Band 1 PEP Interpretation Crossmatch 10/14/16 10/14/16 10/14/16 15:02 15:33 15:33 WBC RBC Hgb Hct MCV MCHC RDW Plt Count Seg Neuts % (Manual) Lymphocytes % (Manual) Nucleated RBC % Seg Neutrophils # Man Lymphocytes # (Manual) Haptoglobin PT INR Fibrinogen Lupus Anticoagulant LA PTT Baseline POC ABG pH POC ABG pCO2 POC ABG pO2 Sodium Potassium Chloride Carbon Dioxide BUN Creatinine Glucose 19 L* POC Glucose < 40 L Lactic Acid 11.60 H* Uric Acid Calcium Phosphorus Iron TIBC Erythropoietin Ferritin Total Bilirubin Direct Bilirubin AST ALT Alkaline Phosphatase Lactate Dehydrogenase C-Reactive Protein Serum Total Protein Total Protein Albumin Ubbnv-5-Btfwxrfhl Abnorm Protein Band 1 PEP Interpretation Crossmatch 10/14/16 10/14/16 10/14/16 17:14 18:03 21:25 WBC RBC Hgb Hct MCV MCHC RDW Plt Count Seg Neuts % (Manual) Lymphocytes % (Manual) Nucleated RBC % Seg Neutrophils # Man Lymphocytes # (Manual) Haptoglobin PT 28.9 H INR 2.71 H Fibrinogen Lupus Anticoagulant LA PTT Baseline POC ABG pH POC ABG pCO2 POC ABG pO2 Sodium Potassium Chloride Carbon Dioxide BUN Creatinine Glucose POC Glucose < 40 L 57 L Lactic Acid Uric Acid Calcium Phosphorus Iron TIBC Erythropoietin Ferritin Total Bilirubin Direct Bilirubin AST ALT Alkaline Phosphatase Lactate Dehydrogenase C-Reactive Protein Serum Total Protein Total Protein Albumin Ptniu-9-Vfqvmdiyo Abnorm Protein Band 1 PEP Interpretation Crossmatch 10/15/16 10/15/16 10/15/16 05:32 05:35 05:35 WBC RBC 2.62 L Hgb 8.1 L Hct 25.8 L MCV 98 H D MCHC 31 L RDW 21.2 H Plt Count 61 L Seg Neuts % (Manual) 27.0 L Lymphocytes % (Manual) 10.0 L Nucleated RBC % 2.0 H Seg Neutrophils # Man Lymphocytes # (Manual) 0.8 L Haptoglobin PT INR Fibrinogen Lupus Anticoagulant LA PTT Baseline POC ABG pH POC ABG pCO2 POC ABG pO2 Sodium Potassium Chloride Carbon Dioxide BUN Creatinine Glucose POC Glucose < 40 L Lactic Acid Uric Acid Calcium Phosphorus Iron TIBC Erythropoietin Ferritin Total Bilirubin Direct Bilirubin AST ALT Alkaline Phosphatase Lactate Dehydrogenase 3871 H C-Reactive Protein Serum Total Protein Total Protein Albumin Apkvn-8-Vgxsxxtrt Abnorm Protein Band 1 PEP Interpretation Crossmatch 10/15/16 10/15/16 10/15/16 05:35 05:35 05:35 WBC RBC Hgb Hct MCV MCHC RDW Plt Count Seg Neuts % (Manual) Lymphocytes % (Manual) Nucleated RBC % Seg Neutrophils # Man Lymphocytes # (Manual) Haptoglobin PT INR Fibrinogen Lupus Anticoagulant LA PTT Baseline POC ABG pH POC ABG pCO2 POC ABG pO2 Sodium 136 L Potassium 5.3 H D Chloride 91.4 L Carbon Dioxide 6 L* D BUN 57 H Creatinine 7.1 H Glucose 11 L* POC Glucose Lactic Acid 13.60 H* Uric Acid Calcium 7.7 L Phosphorus 10.10 H D Iron TIBC 166 L Erythropoietin Ferritin 9562.0 H Total Bilirubin Direct Bilirubin AST ALT Alkaline Phosphatase Lactate Dehydrogenase C-Reactive Protein Serum Total Protein Total Protein Albumin Jiyei-8-Pyfwhgftp Abnorm Protein Band 1 PEP Interpretation Crossmatch 10/15/16 10/15/16 10/15/16 05:51 06:22 06:52 WBC RBC Hgb Hct MCV MCHC RDW Plt Count Seg Neuts % (Manual) Lymphocytes % (Manual) Nucleated RBC % Seg Neutrophils # Man Lymphocytes # (Manual) Haptoglobin PT INR Fibrinogen Lupus Anticoagulant LA PTT Baseline POC ABG pH 7.189 L POC ABG pCO2 28.9 L POC ABG pO2 Sodium Potassium Chloride Carbon Dioxide BUN Creatinine Glucose POC Glucose 59 L 111 H Lactic Acid Uric Acid Calcium Phosphorus Iron TIBC Erythropoietin Ferritin Total Bilirubin Direct Bilirubin AST ALT Alkaline Phosphatase Lactate Dehydrogenase C-Reactive Protein Serum Total Protein Total Protein Albumin Fweng-1-Vuyetoilo Abnorm Protein Band 1 PEP Interpretation Crossmatch 10/15/16 10/15/16 10/15/16 08:00 09:57 11:42 WBC RBC Hgb Hct MCV MCHC RDW Plt Count Seg Neuts % (Manual) Lymphocytes % (Manual) Nucleated RBC % Seg Neutrophils # Man Lymphocytes # (Manual) Haptoglobin PT INR Fibrinogen Lupus Anticoagulant LA PTT Baseline POC ABG pH POC ABG pCO2 POC ABG pO2 Sodium Potassium Chloride Carbon Dioxide BUN Creatinine Glucose POC Glucose 63 L 143 H 203 H Lactic Acid Uric Acid Calcium Phosphorus Iron TIBC Erythropoietin Ferritin Total Bilirubin Direct Bilirubin AST ALT Alkaline Phosphatase Lactate Dehydrogenase C-Reactive Protein Serum Total Protein Total Protein Albumin Lsvwk-7-Hlbilnmes Abnorm Protein Band 1 PEP Interpretation Crossmatch 10/15/16 10/15/16 10/15/16 12:00 12:00 13:00 WBC RBC Hgb Hct MCV MCHC RDW Plt Count Seg Neuts % (Manual) Lymphocytes % (Manual) Nucleated RBC % Seg Neutrophils # Man Lymphocytes # (Manual) Haptoglobin <15 L PT INR Fibrinogen Lupus Anticoagulant LA PTT Baseline POC ABG pH POC ABG pCO2 POC ABG pO2 Sodium Potassium Chloride Carbon Dioxide BUN Creatinine Glucose POC Glucose 136 H Lactic Acid 16.30 H* Uric Acid Calcium Phosphorus Iron TIBC Erythropoietin Ferritin Total Bilirubin Direct Bilirubin AST ALT Alkaline Phosphatase Lactate Dehydrogenase C-Reactive Protein Serum Total Protein Total Protein Albumin Deevq-2-Txzcdfuwr Abnorm Protein Band 1 PEP Interpretation Crossmatch 10/15/16 10/15/16 10/15/16 14:06 15:15 16:23 WBC RBC Hgb Hct MCV MCHC RDW Plt Count Seg Neuts % (Manual) Lymphocytes % (Manual) Nucleated RBC % Seg Neutrophils # Man Lymphocytes # (Manual) Haptoglobin PT INR Fibrinogen Lupus Anticoagulant LA PTT Baseline POC ABG pH POC ABG pCO2 POC ABG pO2 Sodium Potassium Chloride Carbon Dioxide BUN Creatinine Glucose POC Glucose 132 H 64 L Lactic Acid 20.40 H* Uric Acid Calcium Phosphorus Iron TIBC Erythropoietin Ferritin Total Bilirubin Direct Bilirubin AST ALT Alkaline Phosphatase Lactate Dehydrogenase C-Reactive Protein Serum Total Protein Total Protein Albumin Rtljl-7-Njxbrmbyr Abnorm Protein Band 1 PEP Interpretation Crossmatch 10/15/16 10/15/16 10/15/16 16:40 17:00 17:10 WBC RBC Hgb Hct MCV MCHC RDW Plt Count Seg Neuts % (Manual) Lymphocytes % (Manual) Nucleated RBC % Seg Neutrophils # Man Lymphocytes # (Manual) Haptoglobin PT INR Fibrinogen Lupus Anticoagulant LA PTT Baseline POC ABG pH 7.323 L POC ABG pCO2 25.8 L POC ABG pO2 135 H Sodium Potassium Chloride Carbon Dioxide BUN Creatinine Glucose POC Glucose 159 H Lactic Acid 20.20 H* Uric Acid Calcium Phosphorus Iron TIBC Erythropoietin Ferritin Total Bilirubin Direct Bilirubin AST ALT Alkaline Phosphatase Lactate Dehydrogenase C-Reactive Protein Serum Total Protein Total Protein Albumin Yidcg-1-Nmduhwzli Abnorm Protein Band 1 PEP Interpretation Crossmatch 10/15/16 10/15/16 10/15/16 17:46 17:53 18:45 WBC RBC Hgb Hct MCV MCHC RDW Plt Count Seg Neuts % (Manual) Lymphocytes % (Manual) Nucleated RBC % Seg Neutrophils # Man Lymphocytes # (Manual) Haptoglobin PT INR Fibrinogen Lupus Anticoagulant LA PTT Baseline POC ABG pH POC ABG pCO2 POC ABG pO2 Sodium Potassium Chloride Carbon Dioxide BUN Creatinine Glucose POC Glucose 126 H 143 H Lactic Acid 21.40 H* Uric Acid Calcium Phosphorus Iron TIBC Erythropoietin Ferritin Total Bilirubin Direct Bilirubin AST ALT Alkaline Phosphatase Lactate Dehydrogenase C-Reactive Protein Serum Total Protein Total Protein Albumin Ixqpm-3-Rmpxmoeuu Abnorm Protein Band 1 PEP Interpretation Crossmatch 10/15/16 10/15/16 10/16/16 20:03 22:59 00:06 WBC RBC Hgb Hct MCV MCHC RDW Plt Count Seg Neuts % (Manual) Lymphocytes % (Manual) Nucleated RBC % Seg Neutrophils # Man Lymphocytes # (Manual) Haptoglobin PT INR Fibrinogen Lupus Anticoagulant LA PTT Baseline POC ABG pH POC ABG pCO2 POC ABG pO2 Sodium Potassium Chloride Carbon Dioxide BUN Creatinine Glucose POC Glucose 66 L 53 L 126 H Lactic Acid Uric Acid Calcium Phosphorus Iron TIBC Erythropoietin Ferritin Total Bilirubin Direct Bilirubin AST ALT Alkaline Phosphatase Lactate Dehydrogenase C-Reactive Protein Serum Total Protein Total Protein Albumin Gdbau-7-Ebyjmkgay Abnorm Protein Band 1 PEP Interpretation Crossmatch 10/16/16 10/16/16 10/16/16 01:03 03:55 04:00 WBC RBC Hgb Hct MCV MCHC RDW Plt Count Seg Neuts % (Manual) Lymphocytes % (Manual) Nucleated RBC % Seg Neutrophils # Man Lymphocytes # (Manual) Haptoglobin PT INR Fibrinogen Lupus Anticoagulant LA PTT Baseline POC ABG pH POC ABG pCO2 POC ABG pO2 Sodium Potassium Chloride Carbon Dioxide BUN Creatinine Glucose POC Glucose 107 H 260 H Lactic Acid 18.00 H* Uric Acid Calcium Phosphorus Iron TIBC Erythropoietin Ferritin Total Bilirubin Direct Bilirubin AST ALT Alkaline Phosphatase Lactate Dehydrogenase C-Reactive Protein Serum Total Protein Total Protein Albumin Hpyml-1-Zmrhktkel Abnorm Protein Band 1 PEP Interpretation Crossmatch 10/16/16 10/16/16 10/16/16 04:03 07:58 08:34 WBC RBC Hgb Hct MCV MCHC RDW Plt Count Seg Neuts % (Manual) Lymphocytes % (Manual) Nucleated RBC % Seg Neutrophils # Man Lymphocytes # (Manual) Haptoglobin PT INR Fibrinogen Lupus Anticoagulant LA PTT Baseline POC ABG pH 7.527 H POC ABG pCO2 32.9 L POC ABG pO2 119 H Sodium Potassium Chloride Carbon Dioxide BUN Creatinine Glucose POC Glucose 120 H 66 L Lactic Acid Uric Acid Calcium Phosphorus Iron TIBC Erythropoietin Ferritin Total Bilirubin Direct Bilirubin AST ALT Alkaline Phosphatase Lactate Dehydrogenase C-Reactive Protein Serum Total Protein Total Protein Albumin Goewe-5-Qzwellnbx Abnorm Protein Band 1 PEP Interpretation Crossmatch 10/16/16 10/16/16 10/16/16 09:13 10:06 10:57 WBC RBC Hgb Hct MCV MCHC RDW Plt Count Seg Neuts % (Manual) Lymphocytes % (Manual) Nucleated RBC % Seg Neutrophils # Man Lymphocytes # (Manual) Haptoglobin PT INR Fibrinogen Lupus Anticoagulant LA PTT Baseline POC ABG pH POC ABG pCO2 POC ABG pO2 Sodium Potassium Chloride Carbon Dioxide BUN Creatinine Glucose POC Glucose 147 H 137 H 140 H Lactic Acid Uric Acid Calcium Phosphorus Iron TIBC Erythropoietin Ferritin Total Bilirubin Direct Bilirubin AST ALT Alkaline Phosphatase Lactate Dehydrogenase C-Reactive Protein Serum Total Protein Total Protein Albumin Xotbs-9-Suuxrskgi Abnorm Protein Band 1 PEP Interpretation Crossmatch 10/16/16 10/16/16 10/16/16 11:15 11:15 11:15 WBC 25.8 H RBC 2.30 L Hgb 7.0 L Hct 22.3 L MCV 97 H MCHC 31 L RDW 21.2 H Plt Count 42 L Seg Neuts % (Manual) Lymphocytes % (Manual) 3.0 L Nucleated RBC % 2.0 H Seg Neutrophils # Man 11.1 H Lymphocytes # (Manual) 0.8 L Haptoglobin PT INR Fibrinogen Lupus Anticoagulant LA PTT Baseline POC ABG pH POC ABG pCO2 POC ABG pO2 Sodium Potassium Chloride 81.7 L Carbon Dioxide 13 L D BUN 61 H Creatinine 6.2 H Glucose 171 H POC Glucose Lactic Acid 22.70 H* Uric Acid Calcium 7.1 L Phosphorus 9.10 H Iron TIBC Erythropoietin Ferritin Total Bilirubin Direct Bilirubin AST ALT Alkaline Phosphatase Lactate Dehydrogenase C-Reactive Protein Serum Total Protein Total Protein Albumin Hbazv-7-Yeubffsgb Abnorm Protein Band 1 PEP Interpretation Crossmatch 10/16/16 10/16/16 10/16/16 15:10 15:50 18:11 WBC RBC Hgb Hct MCV MCHC RDW Plt Count Seg Neuts % (Manual) Lymphocytes % (Manual) Nucleated RBC % Seg Neutrophils # Man Lymphocytes # (Manual) Haptoglobin PT INR Fibrinogen Lupus Anticoagulant LA PTT Baseline POC ABG pH POC ABG pCO2 POC ABG pO2 Sodium Potassium Chloride Carbon Dioxide BUN Creatinine Glucose POC Glucose 47 L 164 H 58 L Lactic Acid Uric Acid Calcium Phosphorus Iron TIBC Erythropoietin Ferritin Total Bilirubin Direct Bilirubin AST ALT Alkaline Phosphatase Lactate Dehydrogenase C-Reactive Protein Serum Total Protein Total Protein Albumin Olxpb-2-Nrrizaytk Abnorm Protein Band 1 PEP Interpretation Crossmatch 10/16/16 10/16/16 10/17/16 18:26 21:06 00:06 WBC RBC Hgb Hct MCV MCHC RDW Plt Count Seg Neuts % (Manual) Lymphocytes % (Manual) Nucleated RBC % Seg Neutrophils # Man Lymphocytes # (Manual) Haptoglobin PT INR Fibrinogen Lupus Anticoagulant LA PTT Baseline POC ABG pH POC ABG pCO2 POC ABG pO2 489 H Sodium Potassium Chloride Carbon Dioxide BUN Creatinine Glucose POC Glucose 52 L 120 H Lactic Acid Uric Acid Calcium Phosphorus Iron TIBC Erythropoietin Ferritin Total Bilirubin Direct Bilirubin AST ALT Alkaline Phosphatase Lactate Dehydrogenase C-Reactive Protein Serum Total Protein Total Protein Albumin Icjje-2-Ibzlsqjvu Abnorm Protein Band 1 PEP Interpretation Crossmatch 10/17/16 10/17/16 10/17/16 04:55 04:55 05:04 WBC 25.5 H RBC 2.23 L Hgb 6.6 L Hct 21.2 L MCV 95 H MCHC 31 L RDW 20.5 H Plt Count 35 L Seg Neuts % (Manual) 79.0 H Lymphocytes % (Manual) 0 L Nucleated RBC % Seg Neutrophils # Man 20.1 H Lymphocytes # (Manual) 0.0 L Haptoglobin PT INR Fibrinogen Lupus Anticoagulant LA PTT Baseline POC ABG pH POC ABG pCO2 27.2 L POC ABG pO2 162 H Sodium Potassium Chloride 91.5 L Carbon Dioxide 16 L BUN 45 H Creatinine 4.5 H Glucose 103 H POC Glucose Lactic Acid Uric Acid Calcium 6.9 L Phosphorus 5.80 H D Iron TIBC Erythropoietin Ferritin Total Bilirubin Direct Bilirubin AST ALT Alkaline Phosphatase Lactate Dehydrogenase C-Reactive Protein Serum Total Protein Total Protein Albumin Rqqkj-6-Evqyzbvmq Abnorm Protein Band 1 PEP Interpretation Crossmatch 10/17/16 10/17/16 10/17/16 07:59 09:04 10:04 WBC RBC Hgb Hct MCV MCHC RDW Plt Count Seg Neuts % (Manual) Lymphocytes % (Manual) Nucleated RBC % Seg Neutrophils # Man Lymphocytes # (Manual) Haptoglobin PT INR Fibrinogen Lupus Anticoagulant LA PTT Baseline POC ABG pH POC ABG pCO2 POC ABG pO2 Sodium Potassium Chloride Carbon Dioxide BUN Creatinine Glucose POC Glucose 65 L 118 H Lactic Acid Uric Acid Calcium Phosphorus Iron TIBC Erythropoietin Ferritin Total Bilirubin Direct Bilirubin AST ALT Alkaline Phosphatase Lactate Dehydrogenase C-Reactive Protein Serum Total Protein Total Protein Albumin Ljfnl-3-Yvkbbhdzl Abnorm Protein Band 1 PEP Interpretation Crossmatch See Detail 10/17/16 10/17/16 10/17/16 11:52 13:08 15:42 WBC RBC Hgb Hct MCV MCHC RDW Plt Count Seg Neuts % (Manual) Lymphocytes % (Manual) Nucleated RBC % Seg Neutrophils # Man Lymphocytes # (Manual) Haptoglobin PT INR Fibrinogen Lupus Anticoagulant LA PTT Baseline POC ABG pH POC ABG pCO2 POC ABG pO2 Sodium Potassium Chloride Carbon Dioxide BUN Creatinine Glucose POC Glucose 125 H 106 H 55 L Lactic Acid Uric Acid Calcium Phosphorus Iron TIBC Erythropoietin Ferritin Total Bilirubin Direct Bilirubin AST ALT Alkaline Phosphatase Lactate Dehydrogenase C-Reactive Protein Serum Total Protein Total Protein Albumin Ckspn-9-Ifofinpww Abnorm Protein Band 1 PEP Interpretation Crossmatch 10/17/16 10/17/16 10/17/16 17:39 20:37 21:02 WBC RBC Hgb Hct MCV MCHC RDW Plt Count Seg Neuts % (Manual) Lymphocytes % (Manual) Nucleated RBC % Seg Neutrophils # Man Lymphocytes # (Manual) Haptoglobin PT INR Fibrinogen Lupus Anticoagulant LA PTT Baseline POC ABG pH POC ABG pCO2 28.2 L POC ABG pO2 Sodium Potassium Chloride Carbon Dioxide BUN Creatinine Glucose POC Glucose < 40 L 106 H Lactic Acid Uric Acid Calcium Phosphorus Iron TIBC Erythropoietin Ferritin Total Bilirubin Direct Bilirubin AST ALT Alkaline Phosphatase Lactate Dehydrogenase C-Reactive Protein Serum Total Protein Total Protein Albumin Zifjw-5-Ymgbjkcbx Abnorm Protein Band 1 PEP Interpretation Crossmatch 10/17/16 10/17/16 10/18/16 22:18 23:14 00:28 WBC RBC Hgb Hct MCV MCHC RDW Plt Count Seg Neuts % (Manual) Lymphocytes % (Manual) Nucleated RBC % Seg Neutrophils # Man Lymphocytes # (Manual) Haptoglobin PT INR Fibrinogen Lupus Anticoagulant LA PTT Baseline POC ABG pH POC ABG pCO2 POC ABG pO2 Sodium Potassium Chloride Carbon Dioxide BUN Creatinine Glucose POC Glucose 111 H 118 H 112 H Lactic Acid Uric Acid Calcium Phosphorus Iron TIBC Erythropoietin Ferritin Total Bilirubin Direct Bilirubin AST ALT Alkaline Phosphatase Lactate Dehydrogenase C-Reactive Protein Serum Total Protein Total Protein Albumin Klfcm-9-Vzvhnugwg Abnorm Protein Band 1 PEP Interpretation Crossmatch 10/18/16 10/18/16 10/18/16 05:00 05:00 05:15 WBC 27.3 H RBC 2.75 L Hgb 7.9 L Hct 25.3 L MCV MCHC 31 L RDW 20.7 H Plt Count 31 L Seg Neuts % (Manual) 87.0 H Lymphocytes % (Manual) 1.0 L Nucleated RBC % 1.0 H Seg Neutrophils # Man 23.8 H Lymphocytes # (Manual) 0.3 L Haptoglobin PT INR Fibrinogen Lupus Anticoagulant LA PTT Baseline POC ABG pH 7.466 H POC ABG pCO2 25.1 L POC ABG pO2 Sodium Potassium Chloride 88.7 L Carbon Dioxide 18 L BUN 66 H Creatinine 4.7 H Glucose POC Glucose Lactic Acid Uric Acid Calcium 6.1 L Phosphorus 7.30 H D Iron TIBC Erythropoietin Ferritin Total Bilirubin Direct Bilirubin AST ALT Alkaline Phosphatase Lactate Dehydrogenase C-Reactive Protein Serum Total Protein Total Protein Albumin Xrnab-4-Qttockxil Abnorm Protein Band 1 PEP Interpretation Crossmatch 10/18/16 10/18/16 10/18/16 07:15 07:44 09:07 WBC RBC Hgb Hct MCV MCHC RDW Plt Count Seg Neuts % (Manual) Lymphocytes % (Manual) Nucleated RBC % Seg Neutrophils # Man Lymphocytes # (Manual) Haptoglobin PT INR Fibrinogen Lupus Anticoagulant LA PTT Baseline POC ABG pH POC ABG pCO2 POC ABG pO2 Sodium Potassium Chloride Carbon Dioxide BUN Creatinine Glucose POC Glucose 64 L 156 H 117 H Lactic Acid Uric Acid Calcium Phosphorus Iron TIBC Erythropoietin Ferritin Total Bilirubin Direct Bilirubin AST ALT Alkaline Phosphatase Lactate Dehydrogenase C-Reactive Protein Serum Total Protein Total Protein Albumin Uhdoq-7-Mtuhmanlw Abnorm Protein Band 1 PEP Interpretation Crossmatch 10/18/16 10/18/16 10/18/16 09:15 14:00 18:21 WBC RBC Hgb Hct MCV MCHC RDW Plt Count Seg Neuts % (Manual) Lymphocytes % (Manual) Nucleated RBC % Seg Neutrophils # Man Lymphocytes # (Manual) Haptoglobin PT INR Fibrinogen Lupus Anticoagulant LA PTT Baseline POC ABG pH POC ABG pCO2 POC ABG pO2 Sodium Potassium Chloride Carbon Dioxide BUN Creatinine Glucose POC Glucose 106 H 112 H Lactic Acid 14.30 H* Uric Acid Calcium Phosphorus Iron TIBC Erythropoietin Ferritin Total Bilirubin Direct Bilirubin AST ALT Alkaline Phosphatase Lactate Dehydrogenase C-Reactive Protein Serum Total Protein Total Protein Albumin Djnpc-6-Zndnnmrae Abnorm Protein Band 1 PEP Interpretation Crossmatch 10/18/16 10/18/16 10/18/16 19:58 20:55 22:11 WBC RBC Hgb Hct MCV MCHC RDW Plt Count Seg Neuts % (Manual) Lymphocytes % (Manual) Nucleated RBC % Seg Neutrophils # Man Lymphocytes # (Manual) Haptoglobin PT INR Fibrinogen Lupus Anticoagulant LA PTT Baseline POC ABG pH POC ABG pCO2 POC ABG pO2 Sodium Potassium Chloride Carbon Dioxide BUN Creatinine Glucose POC Glucose 127 H 125 H 159 H Lactic Acid Uric Acid Calcium Phosphorus Iron TIBC Erythropoietin Ferritin Total Bilirubin Direct Bilirubin AST ALT Alkaline Phosphatase Lactate Dehydrogenase C-Reactive Protein Serum Total Protein Total Protein Albumin Njolv-9-Exkrvclct Abnorm Protein Band 1 PEP Interpretation Crossmatch 10/18/16 10/18/16 10/19/16 23:11 23:57 01:06 WBC RBC Hgb Hct MCV MCHC RDW Plt Count Seg Neuts % (Manual) Lymphocytes % (Manual) Nucleated RBC % Seg Neutrophils # Man Lymphocytes # (Manual) Haptoglobin PT INR Fibrinogen Lupus Anticoagulant LA PTT Baseline POC ABG pH POC ABG pCO2 POC ABG pO2 Sodium Potassium Chloride Carbon Dioxide BUN Creatinine Glucose POC Glucose 122 H 137 H 162 H Lactic Acid Uric Acid Calcium Phosphorus Iron TIBC Erythropoietin Ferritin Total Bilirubin Direct Bilirubin AST ALT Alkaline Phosphatase Lactate Dehydrogenase C-Reactive Protein Serum Total Protein Total Protein Albumin Zfbxs-9-Kooowvmwz Abnorm Protein Band 1 PEP Interpretation Crossmatch 10/19/16 10/19/16 10/19/16 01:59 03:07 04:10 WBC RBC Hgb Hct MCV MCHC RDW Plt Count Seg Neuts % (Manual) Lymphocytes % (Manual) Nucleated RBC % Seg Neutrophils # Man Lymphocytes # (Manual) Haptoglobin PT INR Fibrinogen Lupus Anticoagulant LA PTT Baseline POC ABG pH POC ABG pCO2 POC ABG pO2 Sodium Potassium Chloride Carbon Dioxide BUN Creatinine Glucose POC Glucose 154 H 178 H 186 H Lactic Acid Uric Acid Calcium Phosphorus Iron TIBC Erythropoietin Ferritin Total Bilirubin Direct Bilirubin AST ALT Alkaline Phosphatase Lactate Dehydrogenase C-Reactive Protein Serum Total Protein Total Protein Albumin Ubbrs-8-Sjdowpwei Abnorm Protein Band 1 PEP Interpretation Crossmatch 10/19/16 10/19/16 10/19/16 05:14 05:15 05:47 WBC RBC Hgb Hct MCV MCHC RDW Plt Count Seg Neuts % (Manual) Lymphocytes % (Manual) Nucleated RBC % Seg Neutrophils # Man Lymphocytes # (Manual) Haptoglobin PT INR Fibrinogen Lupus Anticoagulant LA PTT Baseline POC ABG pH 7.581 H POC ABG pCO2 22.9 L POC ABG pO2 58 L Sodium Potassium Chloride Carbon Dioxide BUN Creatinine Glucose POC Glucose 197 H 204 H Lactic Acid Uric Acid Calcium Phosphorus Iron TIBC Erythropoietin Ferritin Total Bilirubin Direct Bilirubin AST ALT Alkaline Phosphatase Lactate Dehydrogenase C-Reactive Protein Serum Total Protein Total Protein Albumin Elkrc-2-Vybxolone Abnorm Protein Band 1 PEP Interpretation Crossmatch 10/19/16 10/19/16 10/19/16 06:00 06:00 07:51 WBC 23.0 H RBC 2.54 L Hgb 7.5 L Hct 23.0 L MCV MCHC RDW 20.7 H Plt Count 25 L Seg Neuts % (Manual) 91.0 H Lymphocytes % (Manual) 2.0 L Nucleated RBC % 1.0 H Seg Neutrophils # Man 20.9 H Lymphocytes # (Manual) 0.5 L Haptoglobin PT INR Fibrinogen Lupus Anticoagulant LA PTT Baseline POC ABG pH POC ABG pCO2 POC ABG pO2 Sodium Potassium Chloride 88.7 L Carbon Dioxide 21 L BUN 70 H Creatinine 3.9 H Glucose 189 H POC Glucose 145 H Lactic Acid Uric Acid Calcium 5.6 L* Phosphorus 6.30 H Iron TIBC Erythropoietin Ferritin Total Bilirubin Direct Bilirubin AST ALT Alkaline Phosphatase Lactate Dehydrogenase C-Reactive Protein Serum Total Protein Total Protein Albumin Skxeg-5-Uecjdovha Abnorm Protein Band 1 PEP Interpretation Crossmatch 10/19/16 10/19/16 10/19/16 09:14 10:01 12:14 WBC RBC Hgb Hct MCV MCHC RDW Plt Count Seg Neuts % (Manual) Lymphocytes % (Manual) Nucleated RBC % Seg Neutrophils # Man Lymphocytes # (Manual) Haptoglobin PT INR Fibrinogen Lupus Anticoagulant LA PTT Baseline POC ABG pH POC ABG pCO2 POC ABG pO2 Sodium Potassium Chloride Carbon Dioxide BUN Creatinine Glucose POC Glucose 173 H 153 H 180 H Lactic Acid Uric Acid Calcium Phosphorus Iron TIBC Erythropoietin Ferritin Total Bilirubin Direct Bilirubin AST ALT Alkaline Phosphatase Lactate Dehydrogenase C-Reactive Protein Serum Total Protein Total Protein Albumin Vlapz-9-Bcnqnlwre Abnorm Protein Band 1 PEP Interpretation Crossmatch 10/19/16 10/19/16 10/19/16 14:15 16:38 20:27 WBC RBC Hgb Hct MCV MCHC RDW Plt Count Seg Neuts % (Manual) Lymphocytes % (Manual) Nucleated RBC % Seg Neutrophils # Man Lymphocytes # (Manual) Haptoglobin PT INR Fibrinogen Lupus Anticoagulant LA PTT Baseline POC ABG pH POC ABG pCO2 POC ABG pO2 Sodium Potassium Chloride Carbon Dioxide BUN Creatinine Glucose POC Glucose 194 H 202 H Lactic Acid Uric Acid Calcium Phosphorus Iron TIBC Erythropoietin 148.2 H Ferritin Total Bilirubin Direct Bilirubin AST ALT Alkaline Phosphatase Lactate Dehydrogenase C-Reactive Protein Serum Total Protein Total Protein Albumin Hyfzp-4-Nnblonqnb Abnorm Protein Band 1 PEP Interpretation Crossmatch 10/19/16 10/20/16 10/20/16 23:27 04:06 05:00 WBC RBC Hgb Hct MCV MCHC RDW Plt Count Seg Neuts % (Manual) Lymphocytes % (Manual) Nucleated RBC % Seg Neutrophils # Man Lymphocytes # (Manual) Haptoglobin PT INR Fibrinogen Lupus Anticoagulant LA PTT Baseline POC ABG pH POC ABG pCO2 POC ABG pO2 Sodium Potassium Chloride 88.8 L Carbon Dioxide BUN 93 H Creatinine 4.3 H Glucose 204 H POC Glucose 201 H 200 H Lactic Acid Uric Acid Calcium 5.2 L* Phosphorus Iron TIBC Erythropoietin Ferritin Total Bilirubin Direct Bilirubin AST ALT Alkaline Phosphatase Lactate Dehydrogenase C-Reactive Protein Serum Total Protein Total Protein Albumin Ofnlg-5-Tuhtdiset Abnorm Protein Band 1 PEP Interpretation Crossmatch 10/20/16 10/20/16 10/20/16 05:16 06:00 07:43 WBC 24.8 H RBC 2.52 L Hgb 7.4 L Hct 22.9 L MCV MCHC RDW 19.9 H Plt Count 23 L Seg Neuts % (Manual) 97.0 H Lymphocytes % (Manual) 1.0 L Nucleated RBC % 9.0 H Seg Neutrophils # Man 24.1 H Lymphocytes # (Manual) 0.2 L Haptoglobin PT INR Fibrinogen Lupus Anticoagulant LA PTT Baseline POC ABG pH 7.463 H POC ABG pCO2 POC ABG pO2 157 H Sodium Potassium Chloride Carbon Dioxide BUN Creatinine Glucose POC Glucose 192 H Lactic Acid Uric Acid Calcium Phosphorus Iron TIBC Erythropoietin Ferritin Total Bilirubin Direct Bilirubin AST ALT Alkaline Phosphatase Lactate Dehydrogenase C-Reactive Protein Serum Total Protein Total Protein Albumin Zeqix-4-Jipnpjbjk Abnorm Protein Band 1 PEP Interpretation Crossmatch 10/20/16 10/20/16 10/20/16 12:11 15:32 21:23 WBC RBC Hgb Hct MCV MCHC RDW Plt Count Seg Neuts % (Manual) Lymphocytes % (Manual) Nucleated RBC % Seg Neutrophils # Man Lymphocytes # (Manual) Haptoglobin PT INR Fibrinogen Lupus Anticoagulant LA PTT Baseline POC ABG pH POC ABG pCO2 POC ABG pO2 Sodium Potassium Chloride Carbon Dioxide BUN Creatinine Glucose POC Glucose 172 H 216 H 271 H Lactic Acid Uric Acid Calcium Phosphorus Iron TIBC Erythropoietin Ferritin Total Bilirubin Direct Bilirubin AST ALT Alkaline Phosphatase Lactate Dehydrogenase C-Reactive Protein Serum Total Protein Total Protein Albumin Xwkmo-4-Iikbglqsk Abnorm Protein Band 1 PEP Interpretation Crossmatch 10/20/16 10/21/16 10/21/16 23:49 03:53 04:58 WBC RBC Hgb Hct MCV MCHC RDW Plt Count Seg Neuts % (Manual) Lymphocytes % (Manual) Nucleated RBC % Seg Neutrophils # Man Lymphocytes # (Manual) Haptoglobin PT INR Fibrinogen Lupus Anticoagulant LA PTT Baseline POC ABG pH 7.459 H POC ABG pCO2 POC ABG pO2 113 H Sodium 136 L Potassium 2.8 L* D Chloride 91.6 L Carbon Dioxide BUN 62 H Creatinine 2.8 H Glucose 236 H POC Glucose 317 H Lactic Acid Uric Acid Calcium 6.2 L D Phosphorus Iron TIBC Erythropoietin Ferritin Total Bilirubin 2.70 H Direct Bilirubin AST 73 H ALT 57 H Alkaline Phosphatase 158 H Lactate Dehydrogenase C-Reactive Protein Serum Total Protein Total Protein 4.9 L Albumin 2.6 L Oadqd-9-Zppxsxrqi Abnorm Protein Band 1 PEP Interpretation Crossmatch 10/21/16 10/21/16 10/21/16 05:25 07:11 10:30 WBC 28.1 H RBC 2.36 L Hgb 7.0 L Hct 21.6 L MCV MCHC RDW 20.0 H Plt Count 14 L* Seg Neuts % (Manual) 92.0 H Lymphocytes % (Manual) 0 L Nucleated RBC % 5.0 H Seg Neutrophils # Man 25.9 H Lymphocytes # (Manual) 0.0 L Haptoglobin PT INR Fibrinogen Lupus Anticoagulant LA PTT Baseline POC ABG pH POC ABG pCO2 POC ABG pO2 Sodium Potassium Chloride Carbon Dioxide BUN Creatinine Glucose POC Glucose 237 H 206 H Lactic Acid Uric Acid Calcium Phosphorus Iron TIBC Erythropoietin Ferritin Total Bilirubin Direct Bilirubin AST ALT Alkaline Phosphatase Lactate Dehydrogenase C-Reactive Protein Serum Total Protein Total Protein Albumin Rrfdx-0-Lmudrrfyk Abnorm Protein Band 1 PEP Interpretation Crossmatch 10/21/16 10/21/16 10/21/16 11:25 12:31 16:33 WBC RBC Hgb Hct MCV MCHC RDW Plt Count Seg Neuts % (Manual) Lymphocytes % (Manual) Nucleated RBC % Seg Neutrophils # Man Lymphocytes # (Manual) Haptoglobin PT 49.1 H INR 5.28 H* Fibrinogen Lupus Anticoagulant LA PTT Baseline POC ABG pH POC ABG pCO2 POC ABG pO2 Sodium Potassium Chloride Carbon Dioxide BUN Creatinine Glucose POC Glucose 145 H 151 H Lactic Acid Uric Acid Calcium Phosphorus Iron TIBC Erythropoietin Ferritin Total Bilirubin Direct Bilirubin AST ALT Alkaline Phosphatase Lactate Dehydrogenase C-Reactive Protein Serum Total Protein Total Protein Albumin Kltgj-2-Gmxcbamsb Abnorm Protein Band 1 PEP Interpretation Crossmatch 10/21/16 10/22/16 10/22/16 19:53 00:00 05:23 WBC RBC Hgb Hct MCV MCHC RDW Plt Count Seg Neuts % (Manual) Lymphocytes % (Manual) Nucleated RBC % Seg Neutrophils # Man Lymphocytes # (Manual) Haptoglobin PT INR Fibrinogen Lupus Anticoagulant LA PTT Baseline POC ABG pH POC ABG pCO2 POC ABG pO2 Sodium Potassium Chloride Carbon Dioxide BUN Creatinine Glucose POC Glucose 170 H 168 H 131 H Lactic Acid Uric Acid Calcium Phosphorus Iron TIBC Erythropoietin Ferritin Total Bilirubin Direct Bilirubin AST ALT Alkaline Phosphatase Lactate Dehydrogenase C-Reactive Protein Serum Total Protein Total Protein Albumin Erczc-1-Klsplsiqy Abnorm Protein Band 1 PEP Interpretation Crossmatch 10/22/16 10/22/16 10/22/16 05:25 05:35 13:03 WBC RBC Hgb Hct MCV MCHC RDW Plt Count Seg Neuts % (Manual) Lymphocytes % (Manual) Nucleated RBC % Seg Neutrophils # Man Lymphocytes # (Manual) Haptoglobin PT INR Fibrinogen Lupus Anticoagulant LA PTT Baseline POC ABG pH 7.462 H POC ABG pCO2 POC ABG pO2 Sodium 135 L Potassium 3.0 L Chloride 88.5 L Carbon Dioxide BUN 84 H Creatinine 3.4 H Glucose 124 H POC Glucose 164 H Lactic Acid Uric Acid Calcium 5.9 L* Phosphorus Iron TIBC Erythropoietin Ferritin Total Bilirubin 2.00 H Direct Bilirubin AST 85 H ALT Alkaline Phosphatase 199 H Lactate Dehydrogenase C-Reactive Protein Serum Total Protein Total Protein 5.0 L Albumin 2.5 L Joutf-9-Qkhtnnolt Abnorm Protein Band 1 PEP Interpretation Crossmatch 10/22/16 10/22/16 10/23/16 17:14 23:16 04:47 WBC RBC Hgb Hct MCV MCHC RDW Plt Count Seg Neuts % (Manual) Lymphocytes % (Manual) Nucleated RBC % Seg Neutrophils # Man Lymphocytes # (Manual) Haptoglobin PT INR Fibrinogen Lupus Anticoagulant LA PTT Baseline POC ABG pH 7.476 H POC ABG pCO2 POC ABG pO2 108 H Sodium Potassium Chloride Carbon Dioxide BUN Creatinine Glucose POC Glucose 188 H 167 H Lactic Acid Uric Acid Calcium Phosphorus Iron TIBC Erythropoietin Ferritin Total Bilirubin Direct Bilirubin AST ALT Alkaline Phosphatase Lactate Dehydrogenase C-Reactive Protein Serum Total Protein Total Protein Albumin Tchcr-7-Vjtdxlmcb Abnorm Protein Band 1 PEP Interpretation Crossmatch 10/23/16 10/23/16 10/23/16 05:49 07:00 07:12 WBC 24.2 H RBC 2.27 L Hgb 7.0 L Hct 21.1 L MCV MCHC RDW 19.7 H Plt Count 35 L D Seg Neuts % (Manual) Lymphocytes % (Manual) Nucleated RBC % Seg Neutrophils # Man Lymphocytes # (Manual) Haptoglobin PT INR Fibrinogen Lupus Anticoagulant LA PTT Baseline POC ABG pH POC ABG pCO2 POC ABG pO2 Sodium Potassium 3.5 L Chloride 95.7 L Carbon Dioxide BUN 55 H Creatinine 2.7 H Glucose 103 H POC Glucose 106 H Lactic Acid Uric Acid Calcium 7.1 L D Phosphorus Iron TIBC Erythropoietin Ferritin Total Bilirubin Direct Bilirubin AST ALT Alkaline Phosphatase Lactate Dehydrogenase C-Reactive Protein Serum Total Protein Total Protein Albumin Kztfu-3-Jgqktebuq Abnorm Protein Band 1 PEP Interpretation Crossmatch 10/24/16 10/24/16 10/24/16 00:12 05:16 07:00 WBC 17.9 H RBC 2.12 L Hgb 6.5 L Hct 19.9 L* MCV MCHC RDW 19.3 H Plt Count 44 L Seg Neuts % (Manual) Lymphocytes % (Manual) Nucleated RBC % Seg Neutrophils # Man Lymphocytes # (Manual) Haptoglobin PT INR Fibrinogen Lupus Anticoagulant LA PTT Baseline POC ABG pH POC ABG pCO2 POC ABG pO2 Sodium Potassium Chloride Carbon Dioxide BUN Creatinine Glucose POC Glucose 116 H 135 H Lactic Acid Uric Acid Calcium Phosphorus Iron TIBC Erythropoietin Ferritin Total Bilirubin Direct Bilirubin AST ALT Alkaline Phosphatase Lactate Dehydrogenase C-Reactive Protein Serum Total Protein Total Protein Albumin Legmw-1-Rgnethfeu Abnorm Protein Band 1 PEP Interpretation Crossmatch 10/24/16 10/24/16 10/24/16 07:00 11:45 12:12 WBC RBC Hgb Hct MCV MCHC RDW Plt Count Seg Neuts % (Manual) Lymphocytes % (Manual) Nucleated RBC % Seg Neutrophils # Man Lymphocytes # (Manual) Haptoglobin PT INR Fibrinogen Lupus Anticoagulant LA PTT Baseline POC ABG pH POC ABG pCO2 POC ABG pO2 Sodium Potassium Chloride 92.9 L Carbon Dioxide BUN 74 H Creatinine 3.3 H Glucose 136 H POC Glucose 177 H Lactic Acid Uric Acid Calcium 6.6 L Phosphorus Iron TIBC Erythropoietin Ferritin Total Bilirubin 2.10 H Direct Bilirubin AST 68 H ALT Alkaline Phosphatase 224 H Lactate Dehydrogenase C-Reactive Protein Serum Total Protein Total Protein 4.8 L Albumin 2.3 L Wumpy-9-Entvclkkh Abnorm Protein Band 1 PEP Interpretation Crossmatch See Detail 05/29/17 05/29/17 05/29/17 16:30 16:30 17:28 WBC RBC Hgb Hct MCV MCHC RDW Plt Count Seg Neuts % (Manual) Lymphocytes % (Manual) Nucleated RBC % Seg Neutrophils # Man Lymphocytes # (Manual) Haptoglobin PT INR Fibrinogen Lupus Anticoagulant LA PTT Baseline POC ABG pH POC ABG pCO2 POC ABG pO2 Sodium Potassium Chloride Carbon Dioxide BUN Creatinine Glucose POC Glucose 128 H Lactic Acid 3.00 H* Uric Acid Calcium Phosphorus Iron TIBC Erythropoietin Ferritin Total Bilirubin Direct Bilirubin AST ALT Alkaline Phosphatase Lactate Dehydrogenase C-Reactive Protein 7.40 H Serum Total Protein Total Protein Albumin Ztpvw-7-Ymnvoyxbg Abnorm Protein Band 1 PEP Interpretation Crossmatch 10/24/16 10/24/16 10/25/16 18:40 23:32 05:00 WBC 17.5 H RBC 2.99 L Hgb 9.1 L Hct 26.9 L D MCV MCHC RDW 17.7 H Plt Count 53 L Seg Neuts % (Manual) Lymphocytes % (Manual) Nucleated RBC % Seg Neutrophils # Man Lymphocytes # (Manual) Haptoglobin PT INR Fibrinogen Lupus Anticoagulant LA PTT Baseline POC ABG pH POC ABG pCO2 POC ABG pO2 Sodium Potassium Chloride Carbon Dioxide BUN Creatinine Glucose POC Glucose 140 H Lactic Acid 3.10 H* Uric Acid Calcium Phosphorus Iron TIBC Erythropoietin Ferritin Total Bilirubin Direct Bilirubin AST ALT Alkaline Phosphatase Lactate Dehydrogenase C-Reactive Protein Serum Total Protein Total Protein Albumin Ytqif-6-Retdbnyln Abnorm Protein Band 1 PEP Interpretation Crossmatch 10/25/16 10/25/16 10/25/16 05:00 05:22 11:58 WBC RBC Hgb Hct MCV MCHC RDW Plt Count Seg Neuts % (Manual) Lymphocytes % (Manual) Nucleated RBC % Seg Neutrophils # Man Lymphocytes # (Manual) Haptoglobin PT INR Fibrinogen Lupus Anticoagulant LA PTT Baseline POC ABG pH POC ABG pCO2 POC ABG pO2 Sodium Potassium Chloride 91.6 L Carbon Dioxide BUN 89 H Creatinine 3.9 H Glucose 150 H POC Glucose 164 H 189 H Lactic Acid Uric Acid Calcium 6.9 L Phosphorus Iron TIBC Erythropoietin Ferritin Total Bilirubin Direct Bilirubin AST ALT Alkaline Phosphatase Lactate Dehydrogenase C-Reactive Protein Serum Total Protein Total Protein Albumin Uzxkx-7-Ozornjitw Abnorm Protein Band 1 PEP Interpretation Crossmatch 10/25/16 10/25/16 10/26/16 17:56 23:12 04:00 WBC RBC Hgb Hct MCV MCHC RDW Plt Count Seg Neuts % (Manual) Lymphocytes % (Manual) Nucleated RBC % Seg Neutrophils # Man Lymphocytes # (Manual) Haptoglobin PT INR Fibrinogen Lupus Anticoagulant LA PTT Baseline POC ABG pH POC ABG pCO2 POC ABG pO2 Sodium 135 L Potassium Chloride 90.7 L Carbon Dioxide BUN 64 H Creatinine 2.9 H Glucose 132 H POC Glucose 156 H 133 H Lactic Acid Uric Acid Calcium 7.3 L Phosphorus Iron TIBC Erythropoietin Ferritin Total Bilirubin Direct Bilirubin AST ALT Alkaline Phosphatase Lactate Dehydrogenase C-Reactive Protein Serum Total Protein Total Protein Albumin Ivcxn-1-Sdqacpefp Abnorm Protein Band 1 PEP Interpretation Crossmatch 10/26/16 10/26/16 10/26/16 05:14 06:15 11:51 WBC 18.6 H RBC 3.15 L Hgb 9.6 L Hct 29.0 L MCV MCHC RDW 17.8 H Plt Count 71 L Seg Neuts % (Manual) 85.0 H Lymphocytes % (Manual) 1.0 L Nucleated RBC % Seg Neutrophils # Man 15.8 H Lymphocytes # (Manual) 0.2 L Haptoglobin PT INR Fibrinogen Lupus Anticoagulant LA PTT Baseline POC ABG pH POC ABG pCO2 POC ABG pO2 Sodium Potassium Chloride Carbon Dioxide BUN Creatinine Glucose POC Glucose 130 H 139 H Lactic Acid Uric Acid Calcium Phosphorus Iron TIBC Erythropoietin Ferritin Total Bilirubin Direct Bilirubin AST ALT Alkaline Phosphatase Lactate Dehydrogenase C-Reactive Protein Serum Total Protein Total Protein Albumin Bzrsb-3-Hbmxjqqjo Abnorm Protein Band 1 PEP Interpretation Crossmatch 10/26/16 10/26/16 10/27/16 17:25 23:35 04:10 WBC 16.8 H RBC 3.38 L Hgb 10.1 L Hct 31.0 L MCV MCHC RDW 18.0 H Plt Count 77 L Seg Neuts % (Manual) 92.0 H Lymphocytes % (Manual) 1.0 L Nucleated RBC % 1.0 H Seg Neutrophils # Man 15.5 H Lymphocytes # (Manual) 0.2 L Haptoglobin PT INR Fibrinogen Lupus Anticoagulant LA PTT Baseline POC ABG pH POC ABG pCO2 POC ABG pO2 Sodium Potassium Chloride Carbon Dioxide BUN Creatinine Glucose POC Glucose 118 H 145 H Lactic Acid Uric Acid Calcium Phosphorus Iron TIBC Erythropoietin Ferritin Total Bilirubin Direct Bilirubin AST ALT Alkaline Phosphatase Lactate Dehydrogenase C-Reactive Protein Serum Total Protein Total Protein Albumin Cffrq-1-Gjqgaskku Abnorm Protein Band 1 PEP Interpretation Crossmatch 10/27/16 10/27/16 10/27/16 04:10 05:53 08:14 WBC RBC Hgb Hct MCV MCHC RDW Plt Count Seg Neuts % (Manual) Lymphocytes % (Manual) Nucleated RBC % Seg Neutrophils # Man Lymphocytes # (Manual) Haptoglobin PT 23.0 H INR 2.03 H Fibrinogen Lupus Anticoagulant LA PTT Baseline POC ABG pH POC ABG pCO2 POC ABG pO2 Sodium Potassium Chloride 95.5 L Carbon Dioxide BUN 63 H Creatinine 2.8 H Glucose 112 H POC Glucose 127 H Lactic Acid Uric Acid Calcium 7.5 L Phosphorus Iron TIBC Erythropoietin Ferritin Total Bilirubin Direct Bilirubin AST ALT Alkaline Phosphatase Lactate Dehydrogenase C-Reactive Protein Serum Total Protein Total Protein Albumin Jfmeh-3-Puqsltlck Abnorm Protein Band 1 PEP Interpretation Crossmatch
--- NOTE | 2016-10-27 11:25 | Progress Note ---
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 Acute respiratory failure - intubated. Sepsis / beta hemolitic strep bacterimia / leukocytosis Paroxysmal atrial fibrillation with variable ventricular response --> SR Acute metabolic encephalopathy ARF on CKD - requiring HD Profound metabolic acidemia/lactic acidosis Anemia / thrombocytopenia - on plasmapheresis. Hypocalcemia Plan: S/p JONATHAN this AM - bubble study negative, no endocarditis visualized. Cont lopressor. Given anemia and thrombocytopenia, defer systemic anticoagulation for now. Consider ischemic evaluation once medically stabilized. No ACEI/ARB in setting of ARF on CKD. The patient has been seen in conjunction with Dr. Parikh who agrees with the assessment and plan of care. Subjective Date of service: 10/27/16 Principal diagnosis: Sepsis Syndrome; MAHA; RAJESH; CHF; TTP Interval history: Pt remains intubated, nonresponsive. Remains in SR. Objective Last Vital Signs Temp 98.7 F 10/27/16 08:00 Pulse 71 10/27/16 10:00 Resp 28 H 10/27/16 10:00 BP 128/82 10/27/16 10:00 Pulse Ox 100 10/27/16 10:00 - Physical Examination General: Other (intubated; nonresponsive ) HEENT: Positive: Jaundice Neck: Positive: neck supple, trachea midline. Negative: JVD/HJR Cardiac: Positive: Reg Rate and Rhythm, S1/S2 Lungs: Positive: Decreased Breath Sounds, Ventilated Respirations Neuro: Positive: Other (intubated; nonresponsive ) Abdomen: Positive: Soft, Active Bowel Sounds Skin: Positive: Clear. Negative: Rash, Wound Musculoskeletal: No Fluid Collection, No Pain, Normal Range of Motion Extremities: Present: upper extr. pulses, lower extr. pulses. Absent: edema - Labs and Meds Coagulation 10/27/16 Range/Units 08:14 PT 23.0 H (12.2-14.9) Sec. INR 2.03 H (0.87-1.13) CBC 10/27/16 Range/Units 04:10 WBC 16.8 H (4.5-11.0) K/mm3 RBC 3.38 L (3.65-5.03) M/mm3 Hgb 10.1 L (11.8-15.2) gm/dl Hct 31.0 L (35.5-45.6) % Plt Count 77 L (140-440) K/mm3 Comprehensive Metabolic Panel 10/27/16 Range/Units 04:10 Sodium 137 (137-145) mmol/L Potassium 4.1 (3.6-5.0) mmol/L Chloride 95.5 L (98-107) mmol/L Carbon Dioxide 24 (22-30) mmol/L BUN 63 H (9-20) mg/dL Creatinine 2.8 H (0.8-1.5) mg/dL Glucose 112 H (75-100) mg/dL Calcium 7.5 L (8.4-10.2) mg/dL - Imaging and Cardiology EKG: report reviewed, image reviewed Echo: report reviewed - Telemetry EKG Rhythm: Sinus Rhythm - Allied health notes Allied health notes reviewed: RT
--- NOTE | 2016-10-27 11:33 | Progress Note ---
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) - continue HD/UF per nephrology recs - follow I's and O's (oliguric at this point) - correct electrolytes prn - avoid nephrotoxins - per nephrology otherwise (3) Metabolic acidosis Current Visit: Yes Status: Acute Plan to address problem: - mixed etiology - Lactic Acidosis component - sepsis may be driving force for that - RAJESH component - continue HD/UF per nephrology prescription - Anti-infectives per ID recs - lactate improved (4) CHF (congestive heart failure) Current Visit: Yes Status: Acute Qualifiers: Congestive heart failure type: C Congestive heart failure chronicity: C Plan to address problem: - ECHO consistent with possible infiltrating disease - cardiology consulted - EF 30& - s/p volume resuscitation for sepsis - per cardiology otherwise - JONATHAN negative (5) Pancytopenia Current Visit: Yes Status: Acute Plan to address problem: - hematology on case - continuing plasmapheresis - may need bone marrow evaluation - platelet count continues trending slowly up now (6) Acute encephalopathy Current Visit: Yes Status: Acute Plan to address problem: - CT brain negative - likely toxic-metabolic encephalopathy - MRI abnormal - neurology evaluation ongoing - following clinically (7) Hypoglycemia Current Visit: Yes Status: Acute Plan to address problem: - improved - suspect sepsis related element - will continue systemic steroids but taper - also continue enteral nutrition - glycemic control via SSI at this point (8) Sepsis syndrome Current Visit: Yes Status: Acute Plan to address problem: - s/p antibiotic course - ID on case - CRP and lactate much improved - JONATHAN nregative (9) Discharge planning issues Current Visit: Yes Status: Acute Plan to address problem: - he remains critically ill on life sustaining interventions including MVS and at risk for further deterioration including ...32' CCT Subjective Date of service: 10/27/16 Principal diagnosis: Sepsis Syndrome; MAHA; RAJESH; CHF; TTP Interval history: Seen and examined at bedside; 24 hour events reviewed; nursing and respiratory care staff consulted; no adverse overnight events reported to me; remains with AMS; s/p JONATHAN and reportedly no vegetations seen; no emesis or overt aspiration Objective Vital Signs - 12hr 10/26/16 10/26/16 10/26/16 23:46 23:47 23:59 Temperature 97.9 F Pulse Rate 78 95 H Pulse Rate [ 70 From Monitor] Respiratory 18 18 20 Rate Respiratory Rate [BILATERAL KNEES] Blood Pressure 143/93 134/89 O2 Sat by Pulse 100 100 100 Oximetry 10/27/16 10/27/16 10/27/16 00:00 00:02 00:30 Temperature Pulse Rate 78 76 76 Pulse Rate [ From Monitor] Respiratory 18 18 18 Rate Respiratory Rate [BILATERAL KNEES] Blood Pressure 148/94 148/94 140/87 O2 Sat by Pulse 100 100 100 Oximetry 10/27/16 10/27/16 10/27/16 01:00 01:30 02:00 Temperature Pulse Rate 72 74 71 Pulse Rate [ From Monitor] Respiratory 18 18 18 Rate Respiratory Rate [BILATERAL KNEES] Blood Pressure 111/73 126/83 111/73 O2 Sat by Pulse 100 100 99 Oximetry 10/27/16 10/27/16 10/27/16 02:30 03:00 03:30 Temperature Pulse Rate 71 73 84 Pulse Rate [ From Monitor] Respiratory 18 18 15 Rate Respiratory Rate [BILATERAL KNEES] Blood Pressure 109/72 113/77 113/77 O2 Sat by Pulse 100 100 99 Oximetry 10/27/16 10/27/16 10/27/16 04:00 04:30 05:00 Temperature 96.7 F L Pulse Rate 68 69 69 Pulse Rate [ 69 From Monitor] Respiratory 18 18 18 Rate Respiratory Rate [BILATERAL KNEES] Blood Pressure 125/89 125/89 124/86 O2 Sat by Pulse 100 100 97 Oximetry 10/27/16 10/27/16 10/27/16 05:30 06:00 06:30 Temperature Pulse Rate 68 66 68 Pulse Rate [ From Monitor] Respiratory 18 18 18 Rate Respiratory Rate [BILATERAL KNEES] Blood Pressure 132/91 119/82 122/83 O2 Sat by Pulse 100 100 100 Oximetry 10/27/16 10/27/16 10/27/16 07:00 07:30 08:00 Temperature 98.7 F Pulse Rate 68 68 70 Pulse Rate [ 72 From Monitor] Respiratory 18 18 18 Rate Respiratory Rate [BILATERAL KNEES] Blood Pressure 124/85 122/86 120/82 O2 Sat by Pulse 100 99 99 Oximetry 10/27/16 10/27/16 10/27/16 08:30 08:57 09:00 Temperature Pulse Rate 69 70 74 Pulse Rate [ From Monitor] Respiratory 18 17 Rate Respiratory Rate [BILATERAL KNEES] Blood Pressure 109/75 109/75 138/100 O2 Sat by Pulse 100 100 99 Oximetry 10/27/16 10/27/16 09:30 10:00 Temperature Pulse Rate 72 71 Pulse Rate [ From Monitor] Respiratory 18 18 Rate Respiratory 28 H Rate [BILATERAL KNEES] Blood Pressure 127/84 128/82 O2 Sat by Pulse 100 100 Oximetry Constitutional: no acute distress, lethargic Eyes: non-icteric ENT: oropharynx moist Neck: supple, no lymphadenopathy Effort: normal Ascultation: Bilateral: diminished breath sounds, rales (scant in bases) Cardiovascular: irregular rhythm Gastrointestinal: normoactive bowel sounds, soft, non-tender, non-distended Integumentary: normal Extremities: no cyanosis, pulses normal, no ischemia or petechiae, edema Neurologic: non-focal exam (grossly), pupils equal and round, unable to assess Psychiatric: other (unable to assess) CBC and BMP: 10/27/16 04:10 10/27/16 04:10 ABG, PT/INR, D-dimer: ABG POC ABG pH 7.476 (7.35-7.45) H 10/23/16 04:47 POC ABG pCO2 37.4 (35-45) 10/23/16 04:47 POC ABG pO2 108 (80-105) H 10/23/16 04:47 POC ABG HCO3 27.6 10/23/16 04:47 POC ABG Total CO2 29 10/23/16 04:47 POC ABG O2 Sat 99 10/23/16 04:47 PT/INR, D-dimer PT 23.0 Sec. (12.2-14.9) H 10/27/16 08:14 INR 2.03 (0.87-1.13) H 10/27/16 08:14 Abnormal lab findings: Abnormal Labs 10/13/16 10/13/16 10/13/16 14:50 21:40 22:05 WBC RBC Hgb Hct MCV MCHC RDW Plt Count Seg Neuts % (Manual) Lymphocytes % (Manual) Nucleated RBC % Seg Neutrophils # Man Lymphocytes # (Manual) Haptoglobin PT INR Fibrinogen Lupus Anticoagulant LA PTT Baseline POC ABG pH POC ABG pCO2 POC ABG pO2 Sodium Potassium Chloride Carbon Dioxide BUN Creatinine Glucose POC Glucose 52 L 43 L Lactic Acid Uric Acid Calcium Phosphorus Iron TIBC Erythropoietin Ferritin Total Bilirubin Direct Bilirubin AST ALT Alkaline Phosphatase Lactate Dehydrogenase C-Reactive Protein Serum Total Protein 5.6 L Total Protein Albumin 2.2 L Cgegx-1-Qigjgkaeb 0.5 H Abnorm Protein Band 1 1.4 H PEP Interpretation see below H Crossmatch 10/13/16 10/14/16 10/14/16 23:18 03:00 03:00 WBC RBC Hgb Hct MCV MCHC RDW Plt Count Seg Neuts % (Manual) Lymphocytes % (Manual) Nucleated RBC % Seg Neutrophils # Man Lymphocytes # (Manual) Haptoglobin PT INR Fibrinogen Lupus Anticoagulant see below H LA PTT Baseline 55 H POC ABG pH POC ABG pCO2 POC ABG pO2 Sodium Potassium Chloride Carbon Dioxide BUN Creatinine Glucose POC Glucose 113 H Lactic Acid Uric Acid Calcium Phosphorus Iron TIBC Erythropoietin Ferritin Total Bilirubin Direct Bilirubin AST ALT Alkaline Phosphatase Lactate Dehydrogenase 406 H C-Reactive Protein Serum Total Protein Total Protein Albumin Owdqt-8-Mvhrnhegl Abnorm Protein Band 1 PEP Interpretation Crossmatch 10/14/16 10/14/16 10/14/16 03:00 03:00 04:34 WBC 1.3 L* RBC 2.33 L Hgb 7.3 L Hct 21.7 L MCV MCHC RDW 19.8 H Plt Count 99 L Seg Neuts % (Manual) Lymphocytes % (Manual) 3.0 L Nucleated RBC % Seg Neutrophils # Man 0.9 L Lymphocytes # (Manual) 0.0 L Haptoglobin PT INR Fibrinogen Lupus Anticoagulant LA PTT Baseline POC ABG pH POC ABG pCO2 POC ABG pO2 Sodium Potassium Chloride Carbon Dioxide 18 L BUN 73 H Creatinine 9.8 H Glucose 59 L POC Glucose Lactic Acid Uric Acid 8.0 H Calcium 8.2 L Phosphorus 6.60 H Iron 13 L TIBC 160 L Erythropoietin Ferritin Total Bilirubin Direct Bilirubin AST ALT Alkaline Phosphatase Lactate Dehydrogenase C-Reactive Protein Serum Total Protein Total Protein Albumin Sewkm-8-Aiudorlge Abnorm Protein Band 1 PEP Interpretation Crossmatch 10/14/16 10/14/16 10/14/16 05:27 06:29 07:34 WBC RBC Hgb Hct MCV MCHC RDW Plt Count Seg Neuts % (Manual) Lymphocytes % (Manual) Nucleated RBC % Seg Neutrophils # Man Lymphocytes # (Manual) Haptoglobin PT INR Fibrinogen Lupus Anticoagulant LA PTT Baseline POC ABG pH POC ABG pCO2 POC ABG pO2 Sodium Potassium Chloride Carbon Dioxide BUN Creatinine Glucose POC Glucose < 40 L 63 L < 40 L Lactic Acid Uric Acid Calcium Phosphorus Iron TIBC Erythropoietin Ferritin Total Bilirubin Direct Bilirubin AST ALT Alkaline Phosphatase Lactate Dehydrogenase C-Reactive Protein Serum Total Protein Total Protein Albumin Cwzlc-0-Cylgeblmu Abnorm Protein Band 1 PEP Interpretation Crossmatch 10/14/16 10/14/16 10/14/16 09:58 09:58 09:58 WBC RBC Hgb Hct MCV MCHC RDW Plt Count Seg Neuts % (Manual) Lymphocytes % (Manual) Nucleated RBC % Seg Neutrophils # Man Lymphocytes # (Manual) Haptoglobin 218 H PT INR Fibrinogen 557 H Lupus Anticoagulant LA PTT Baseline POC ABG pH POC ABG pCO2 POC ABG pO2 Sodium Potassium Chloride Carbon Dioxide BUN Creatinine Glucose POC Glucose Lactic Acid Uric Acid Calcium Phosphorus Iron TIBC Erythropoietin Ferritin Total Bilirubin 1.30 H Direct Bilirubin 1.1 H AST ALT Alkaline Phosphatase Lactate Dehydrogenase C-Reactive Protein Serum Total Protein Total Protein Albumin Gpkiq-3-Cbyiuvupe Abnorm Protein Band 1 PEP Interpretation Crossmatch 10/14/16 10/14/16 10/14/16 10:57 11:15 12:52 WBC RBC Hgb Hct MCV MCHC RDW Plt Count Seg Neuts % (Manual) Lymphocytes % (Manual) Nucleated RBC % Seg Neutrophils # Man Lymphocytes # (Manual) Haptoglobin PT INR Fibrinogen Lupus Anticoagulant LA PTT Baseline POC ABG pH POC ABG pCO2 POC ABG pO2 Sodium Potassium Chloride Carbon Dioxide BUN Creatinine Glucose POC Glucose < 40 L < 40 L Lactic Acid 9.60 H* Uric Acid Calcium Phosphorus Iron TIBC Erythropoietin Ferritin Total Bilirubin Direct Bilirubin AST ALT Alkaline Phosphatase Lactate Dehydrogenase C-Reactive Protein Serum Total Protein Total Protein Albumin Zfani-6-Mfgzchnsx Abnorm Protein Band 1 PEP Interpretation Crossmatch 10/14/16 10/14/16 10/14/16 12:52 13:17 14:12 WBC RBC Hgb Hct MCV MCHC RDW Plt Count Seg Neuts % (Manual) Lymphocytes % (Manual) Nucleated RBC % Seg Neutrophils # Man Lymphocytes # (Manual) Haptoglobin PT INR Fibrinogen Lupus Anticoagulant LA PTT Baseline POC ABG pH POC ABG pCO2 POC ABG pO2 Sodium Potassium Chloride Carbon Dioxide BUN Creatinine Glucose POC Glucose < 40 L < 40 L Lactic Acid Uric Acid Calcium Phosphorus Iron TIBC Erythropoietin Ferritin Total Bilirubin Direct Bilirubin AST ALT Alkaline Phosphatase Lactate Dehydrogenase C-Reactive Protein 40.40 H Serum Total Protein Total Protein Albumin Fadqf-0-Kfrxnrohc Abnorm Protein Band 1 PEP Interpretation Crossmatch 10/14/16 10/14/16 10/14/16 15:02 15:33 15:33 WBC RBC Hgb Hct MCV MCHC RDW Plt Count Seg Neuts % (Manual) Lymphocytes % (Manual) Nucleated RBC % Seg Neutrophils # Man Lymphocytes # (Manual) Haptoglobin PT INR Fibrinogen Lupus Anticoagulant LA PTT Baseline POC ABG pH POC ABG pCO2 POC ABG pO2 Sodium Potassium Chloride Carbon Dioxide BUN Creatinine Glucose 19 L* POC Glucose < 40 L Lactic Acid 11.60 H* Uric Acid Calcium Phosphorus Iron TIBC Erythropoietin Ferritin Total Bilirubin Direct Bilirubin AST ALT Alkaline Phosphatase Lactate Dehydrogenase C-Reactive Protein Serum Total Protein Total Protein Albumin Mwztn-2-Mipvkheif Abnorm Protein Band 1 PEP Interpretation Crossmatch 10/14/16 10/14/16 10/14/16 17:14 18:03 21:25 WBC RBC Hgb Hct MCV MCHC RDW Plt Count Seg Neuts % (Manual) Lymphocytes % (Manual) Nucleated RBC % Seg Neutrophils # Man Lymphocytes # (Manual) Haptoglobin PT 28.9 H INR 2.71 H Fibrinogen Lupus Anticoagulant LA PTT Baseline POC ABG pH POC ABG pCO2 POC ABG pO2 Sodium Potassium Chloride Carbon Dioxide BUN Creatinine Glucose POC Glucose < 40 L 57 L Lactic Acid Uric Acid Calcium Phosphorus Iron TIBC Erythropoietin Ferritin Total Bilirubin Direct Bilirubin AST ALT Alkaline Phosphatase Lactate Dehydrogenase C-Reactive Protein Serum Total Protein Total Protein Albumin Tqjkc-2-Qcvsslipr Abnorm Protein Band 1 PEP Interpretation Crossmatch 10/15/16 10/15/16 10/15/16 05:32 05:35 05:35 WBC RBC 2.62 L Hgb 8.1 L Hct 25.8 L MCV 98 H D MCHC 31 L RDW 21.2 H Plt Count 61 L Seg Neuts % (Manual) 27.0 L Lymphocytes % (Manual) 10.0 L Nucleated RBC % 2.0 H Seg Neutrophils # Man Lymphocytes # (Manual) 0.8 L Haptoglobin PT INR Fibrinogen Lupus Anticoagulant LA PTT Baseline POC ABG pH POC ABG pCO2 POC ABG pO2 Sodium Potassium Chloride Carbon Dioxide BUN Creatinine Glucose POC Glucose < 40 L Lactic Acid Uric Acid Calcium Phosphorus Iron TIBC Erythropoietin Ferritin Total Bilirubin Direct Bilirubin AST ALT Alkaline Phosphatase Lactate Dehydrogenase 3871 H C-Reactive Protein Serum Total Protein Total Protein Albumin Kbrpi-3-Wrovgfgwe Abnorm Protein Band 1 PEP Interpretation Crossmatch 10/15/16 10/15/16 10/15/16 05:35 05:35 05:35 WBC RBC Hgb Hct MCV MCHC RDW Plt Count Seg Neuts % (Manual) Lymphocytes % (Manual) Nucleated RBC % Seg Neutrophils # Man Lymphocytes # (Manual) Haptoglobin PT INR Fibrinogen Lupus Anticoagulant LA PTT Baseline POC ABG pH POC ABG pCO2 POC ABG pO2 Sodium 136 L Potassium 5.3 H D Chloride 91.4 L Carbon Dioxide 6 L* D BUN 57 H Creatinine 7.1 H Glucose 11 L* POC Glucose Lactic Acid 13.60 H* Uric Acid Calcium 7.7 L Phosphorus 10.10 H D Iron TIBC 166 L Erythropoietin Ferritin 9562.0 H Total Bilirubin Direct Bilirubin AST ALT Alkaline Phosphatase Lactate Dehydrogenase C-Reactive Protein Serum Total Protein Total Protein Albumin Mxpim-9-Avzekzrqk Abnorm Protein Band 1 PEP Interpretation Crossmatch 10/15/16 10/15/16 10/15/16 05:51 06:22 06:52 WBC RBC Hgb Hct MCV MCHC RDW Plt Count Seg Neuts % (Manual) Lymphocytes % (Manual) Nucleated RBC % Seg Neutrophils # Man Lymphocytes # (Manual) Haptoglobin PT INR Fibrinogen Lupus Anticoagulant LA PTT Baseline POC ABG pH 7.189 L POC ABG pCO2 28.9 L POC ABG pO2 Sodium Potassium Chloride Carbon Dioxide BUN Creatinine Glucose POC Glucose 59 L 111 H Lactic Acid Uric Acid Calcium Phosphorus Iron TIBC Erythropoietin Ferritin Total Bilirubin Direct Bilirubin AST ALT Alkaline Phosphatase Lactate Dehydrogenase C-Reactive Protein Serum Total Protein Total Protein Albumin Rdevk-5-Qjwcaikgo Abnorm Protein Band 1 PEP Interpretation Crossmatch 10/15/16 10/15/16 10/15/16 08:00 09:57 11:42 WBC RBC Hgb Hct MCV MCHC RDW Plt Count Seg Neuts % (Manual) Lymphocytes % (Manual) Nucleated RBC % Seg Neutrophils # Man Lymphocytes # (Manual) Haptoglobin PT INR Fibrinogen Lupus Anticoagulant LA PTT Baseline POC ABG pH POC ABG pCO2 POC ABG pO2 Sodium Potassium Chloride Carbon Dioxide BUN Creatinine Glucose POC Glucose 63 L 143 H 203 H Lactic Acid Uric Acid Calcium Phosphorus Iron TIBC Erythropoietin Ferritin Total Bilirubin Direct Bilirubin AST ALT Alkaline Phosphatase Lactate Dehydrogenase C-Reactive Protein Serum Total Protein Total Protein Albumin Krcqe-4-Wzhjsdnjj Abnorm Protein Band 1 PEP Interpretation Crossmatch 10/15/16 10/15/16 10/15/16 12:00 12:00 13:00 WBC RBC Hgb Hct MCV MCHC RDW Plt Count Seg Neuts % (Manual) Lymphocytes % (Manual) Nucleated RBC % Seg Neutrophils # Man Lymphocytes # (Manual) Haptoglobin <15 L PT INR Fibrinogen Lupus Anticoagulant LA PTT Baseline POC ABG pH POC ABG pCO2 POC ABG pO2 Sodium Potassium Chloride Carbon Dioxide BUN Creatinine Glucose POC Glucose 136 H Lactic Acid 16.30 H* Uric Acid Calcium Phosphorus Iron TIBC Erythropoietin Ferritin Total Bilirubin Direct Bilirubin AST ALT Alkaline Phosphatase Lactate Dehydrogenase C-Reactive Protein Serum Total Protein Total Protein Albumin Oujqz-7-Vlkfxisnm Abnorm Protein Band 1 PEP Interpretation Crossmatch 10/15/16 10/15/16 10/15/16 14:06 15:15 16:23 WBC RBC Hgb Hct MCV MCHC RDW Plt Count Seg Neuts % (Manual) Lymphocytes % (Manual) Nucleated RBC % Seg Neutrophils # Man Lymphocytes # (Manual) Haptoglobin PT INR Fibrinogen Lupus Anticoagulant LA PTT Baseline POC ABG pH POC ABG pCO2 POC ABG pO2 Sodium Potassium Chloride Carbon Dioxide BUN Creatinine Glucose POC Glucose 132 H 64 L Lactic Acid 20.40 H* Uric Acid Calcium Phosphorus Iron TIBC Erythropoietin Ferritin Total Bilirubin Direct Bilirubin AST ALT Alkaline Phosphatase Lactate Dehydrogenase C-Reactive Protein Serum Total Protein Total Protein Albumin Psviu-8-Xpotvvkoi Abnorm Protein Band 1 PEP Interpretation Crossmatch 10/15/16 10/15/16 10/15/16 16:40 17:00 17:10 WBC RBC Hgb Hct MCV MCHC RDW Plt Count Seg Neuts % (Manual) Lymphocytes % (Manual) Nucleated RBC % Seg Neutrophils # Man Lymphocytes # (Manual) Haptoglobin PT INR Fibrinogen Lupus Anticoagulant LA PTT Baseline POC ABG pH 7.323 L POC ABG pCO2 25.8 L POC ABG pO2 135 H Sodium Potassium Chloride Carbon Dioxide BUN Creatinine Glucose POC Glucose 159 H Lactic Acid 20.20 H* Uric Acid Calcium Phosphorus Iron TIBC Erythropoietin Ferritin Total Bilirubin Direct Bilirubin AST ALT Alkaline Phosphatase Lactate Dehydrogenase C-Reactive Protein Serum Total Protein Total Protein Albumin Xkujr-3-Smqluqesl Abnorm Protein Band 1 PEP Interpretation Crossmatch 10/15/16 10/15/16 10/15/16 17:46 17:53 18:45 WBC RBC Hgb Hct MCV MCHC RDW Plt Count Seg Neuts % (Manual) Lymphocytes % (Manual) Nucleated RBC % Seg Neutrophils # Man Lymphocytes # (Manual) Haptoglobin PT INR Fibrinogen Lupus Anticoagulant LA PTT Baseline POC ABG pH POC ABG pCO2 POC ABG pO2 Sodium Potassium Chloride Carbon Dioxide BUN Creatinine Glucose POC Glucose 126 H 143 H Lactic Acid 21.40 H* Uric Acid Calcium Phosphorus Iron TIBC Erythropoietin Ferritin Total Bilirubin Direct Bilirubin AST ALT Alkaline Phosphatase Lactate Dehydrogenase C-Reactive Protein Serum Total Protein Total Protein Albumin Ddsoo-7-Gsmncufef Abnorm Protein Band 1 PEP Interpretation Crossmatch 10/15/16 10/15/16 10/16/16 20:03 22:59 00:06 WBC RBC Hgb Hct MCV MCHC RDW Plt Count Seg Neuts % (Manual) Lymphocytes % (Manual) Nucleated RBC % Seg Neutrophils # Man Lymphocytes # (Manual) Haptoglobin PT INR Fibrinogen Lupus Anticoagulant LA PTT Baseline POC ABG pH POC ABG pCO2 POC ABG pO2 Sodium Potassium Chloride Carbon Dioxide BUN Creatinine Glucose POC Glucose 66 L 53 L 126 H Lactic Acid Uric Acid Calcium Phosphorus Iron TIBC Erythropoietin Ferritin Total Bilirubin Direct Bilirubin AST ALT Alkaline Phosphatase Lactate Dehydrogenase C-Reactive Protein Serum Total Protein Total Protein Albumin Tjzdp-2-Kcmorapzm Abnorm Protein Band 1 PEP Interpretation Crossmatch 10/16/16 10/16/16 10/16/16 01:03 03:55 04:00 WBC RBC Hgb Hct MCV MCHC RDW Plt Count Seg Neuts % (Manual) Lymphocytes % (Manual) Nucleated RBC % Seg Neutrophils # Man Lymphocytes # (Manual) Haptoglobin PT INR Fibrinogen Lupus Anticoagulant LA PTT Baseline POC ABG pH POC ABG pCO2 POC ABG pO2 Sodium Potassium Chloride Carbon Dioxide BUN Creatinine Glucose POC Glucose 107 H 260 H Lactic Acid 18.00 H* Uric Acid Calcium Phosphorus Iron TIBC Erythropoietin Ferritin Total Bilirubin Direct Bilirubin AST ALT Alkaline Phosphatase Lactate Dehydrogenase C-Reactive Protein Serum Total Protein Total Protein Albumin Qxozc-0-Aoxtvzopf Abnorm Protein Band 1 PEP Interpretation Crossmatch 10/16/16 10/16/16 10/16/16 04:03 07:58 08:34 WBC RBC Hgb Hct MCV MCHC RDW Plt Count Seg Neuts % (Manual) Lymphocytes % (Manual) Nucleated RBC % Seg Neutrophils # Man Lymphocytes # (Manual) Haptoglobin PT INR Fibrinogen Lupus Anticoagulant LA PTT Baseline POC ABG pH 7.527 H POC ABG pCO2 32.9 L POC ABG pO2 119 H Sodium Potassium Chloride Carbon Dioxide BUN Creatinine Glucose POC Glucose 120 H 66 L Lactic Acid Uric Acid Calcium Phosphorus Iron TIBC Erythropoietin Ferritin Total Bilirubin Direct Bilirubin AST ALT Alkaline Phosphatase Lactate Dehydrogenase C-Reactive Protein Serum Total Protein Total Protein Albumin Ucgrf-0-Vrbympzhi Abnorm Protein Band 1 PEP Interpretation Crossmatch 10/16/16 10/16/16 10/16/16 09:13 10:06 10:57 WBC RBC Hgb Hct MCV MCHC RDW Plt Count Seg Neuts % (Manual) Lymphocytes % (Manual) Nucleated RBC % Seg Neutrophils # Man Lymphocytes # (Manual) Haptoglobin PT INR Fibrinogen Lupus Anticoagulant LA PTT Baseline POC ABG pH POC ABG pCO2 POC ABG pO2 Sodium Potassium Chloride Carbon Dioxide BUN Creatinine Glucose POC Glucose 147 H 137 H 140 H Lactic Acid Uric Acid Calcium Phosphorus Iron TIBC Erythropoietin Ferritin Total Bilirubin Direct Bilirubin AST ALT Alkaline Phosphatase Lactate Dehydrogenase C-Reactive Protein Serum Total Protein Total Protein Albumin Ygkto-9-Hkblyvpfs Abnorm Protein Band 1 PEP Interpretation Crossmatch 10/16/16 10/16/16 10/16/16 11:15 11:15 11:15 WBC 25.8 H RBC 2.30 L Hgb 7.0 L Hct 22.3 L MCV 97 H MCHC 31 L RDW 21.2 H Plt Count 42 L Seg Neuts % (Manual) Lymphocytes % (Manual) 3.0 L Nucleated RBC % 2.0 H Seg Neutrophils # Man 11.1 H Lymphocytes # (Manual) 0.8 L Haptoglobin PT INR Fibrinogen Lupus Anticoagulant LA PTT Baseline POC ABG pH POC ABG pCO2 POC ABG pO2 Sodium Potassium Chloride 81.7 L Carbon Dioxide 13 L D BUN 61 H Creatinine 6.2 H Glucose 171 H POC Glucose Lactic Acid 22.70 H* Uric Acid Calcium 7.1 L Phosphorus 9.10 H Iron TIBC Erythropoietin Ferritin Total Bilirubin Direct Bilirubin AST ALT Alkaline Phosphatase Lactate Dehydrogenase C-Reactive Protein Serum Total Protein Total Protein Albumin Xmbcl-9-Ddkvpjcgw Abnorm Protein Band 1 PEP Interpretation Crossmatch 10/16/16 10/16/16 10/16/16 15:10 15:50 18:11 WBC RBC Hgb Hct MCV MCHC RDW Plt Count Seg Neuts % (Manual) Lymphocytes % (Manual) Nucleated RBC % Seg Neutrophils # Man Lymphocytes # (Manual) Haptoglobin PT INR Fibrinogen Lupus Anticoagulant LA PTT Baseline POC ABG pH POC ABG pCO2 POC ABG pO2 Sodium Potassium Chloride Carbon Dioxide BUN Creatinine Glucose POC Glucose 47 L 164 H 58 L Lactic Acid Uric Acid Calcium Phosphorus Iron TIBC Erythropoietin Ferritin Total Bilirubin Direct Bilirubin AST ALT Alkaline Phosphatase Lactate Dehydrogenase C-Reactive Protein Serum Total Protein Total Protein Albumin Ajjzp-8-Obqbdgozk Abnorm Protein Band 1 PEP Interpretation Crossmatch 10/16/16 10/16/16 10/17/16 18:26 21:06 00:06 WBC RBC Hgb Hct MCV MCHC RDW Plt Count Seg Neuts % (Manual) Lymphocytes % (Manual) Nucleated RBC % Seg Neutrophils # Man Lymphocytes # (Manual) Haptoglobin PT INR Fibrinogen Lupus Anticoagulant LA PTT Baseline POC ABG pH POC ABG pCO2 POC ABG pO2 489 H Sodium Potassium Chloride Carbon Dioxide BUN Creatinine Glucose POC Glucose 52 L 120 H Lactic Acid Uric Acid Calcium Phosphorus Iron TIBC Erythropoietin Ferritin Total Bilirubin Direct Bilirubin AST ALT Alkaline Phosphatase Lactate Dehydrogenase C-Reactive Protein Serum Total Protein Total Protein Albumin Gskat-7-Txgsoaypt Abnorm Protein Band 1 PEP Interpretation Crossmatch 10/17/16 10/17/16 10/17/16 04:55 04:55 05:04 WBC 25.5 H RBC 2.23 L Hgb 6.6 L Hct 21.2 L MCV 95 H MCHC 31 L RDW 20.5 H Plt Count 35 L Seg Neuts % (Manual) 79.0 H Lymphocytes % (Manual) 0 L Nucleated RBC % Seg Neutrophils # Man 20.1 H Lymphocytes # (Manual) 0.0 L Haptoglobin PT INR Fibrinogen Lupus Anticoagulant LA PTT Baseline POC ABG pH POC ABG pCO2 27.2 L POC ABG pO2 162 H Sodium Potassium Chloride 91.5 L Carbon Dioxide 16 L BUN 45 H Creatinine 4.5 H Glucose 103 H POC Glucose Lactic Acid Uric Acid Calcium 6.9 L Phosphorus 5.80 H D Iron TIBC Erythropoietin Ferritin Total Bilirubin Direct Bilirubin AST ALT Alkaline Phosphatase Lactate Dehydrogenase C-Reactive Protein Serum Total Protein Total Protein Albumin Mcsbn-6-Islkrkdgk Abnorm Protein Band 1 PEP Interpretation Crossmatch 10/17/16 10/17/16 10/17/16 07:59 09:04 10:04 WBC RBC Hgb Hct MCV MCHC RDW Plt Count Seg Neuts % (Manual) Lymphocytes % (Manual) Nucleated RBC % Seg Neutrophils # Man Lymphocytes # (Manual) Haptoglobin PT INR Fibrinogen Lupus Anticoagulant LA PTT Baseline POC ABG pH POC ABG pCO2 POC ABG pO2 Sodium Potassium Chloride Carbon Dioxide BUN Creatinine Glucose POC Glucose 65 L 118 H Lactic Acid Uric Acid Calcium Phosphorus Iron TIBC Erythropoietin Ferritin Total Bilirubin Direct Bilirubin AST ALT Alkaline Phosphatase Lactate Dehydrogenase C-Reactive Protein Serum Total Protein Total Protein Albumin Hdcsp-3-Gbpqddqbg Abnorm Protein Band 1 PEP Interpretation Crossmatch See Detail 10/17/16 10/17/16 10/17/16 11:52 13:08 15:42 WBC RBC Hgb Hct MCV MCHC RDW Plt Count Seg Neuts % (Manual) Lymphocytes % (Manual) Nucleated RBC % Seg Neutrophils # Man Lymphocytes # (Manual) Haptoglobin PT INR Fibrinogen Lupus Anticoagulant LA PTT Baseline POC ABG pH POC ABG pCO2 POC ABG pO2 Sodium Potassium Chloride Carbon Dioxide BUN Creatinine Glucose POC Glucose 125 H 106 H 55 L Lactic Acid Uric Acid Calcium Phosphorus Iron TIBC Erythropoietin Ferritin Total Bilirubin Direct Bilirubin AST ALT Alkaline Phosphatase Lactate Dehydrogenase C-Reactive Protein Serum Total Protein Total Protein Albumin Cvjkp-5-Bptmnmwdk Abnorm Protein Band 1 PEP Interpretation Crossmatch 10/17/16 10/17/16 10/17/16 17:39 20:37 21:02 WBC RBC Hgb Hct MCV MCHC RDW Plt Count Seg Neuts % (Manual) Lymphocytes % (Manual) Nucleated RBC % Seg Neutrophils # Man Lymphocytes # (Manual) Haptoglobin PT INR Fibrinogen Lupus Anticoagulant LA PTT Baseline POC ABG pH POC ABG pCO2 28.2 L POC ABG pO2 Sodium Potassium Chloride Carbon Dioxide BUN Creatinine Glucose POC Glucose < 40 L 106 H Lactic Acid Uric Acid Calcium Phosphorus Iron TIBC Erythropoietin Ferritin Total Bilirubin Direct Bilirubin AST ALT Alkaline Phosphatase Lactate Dehydrogenase C-Reactive Protein Serum Total Protein Total Protein Albumin Vpmdc-2-Zajelepro Abnorm Protein Band 1 PEP Interpretation Crossmatch 10/17/16 10/17/16 10/18/16 22:18 23:14 00:28 WBC RBC Hgb Hct MCV MCHC RDW Plt Count Seg Neuts % (Manual) Lymphocytes % (Manual) Nucleated RBC % Seg Neutrophils # Man Lymphocytes # (Manual) Haptoglobin PT INR Fibrinogen Lupus Anticoagulant LA PTT Baseline POC ABG pH POC ABG pCO2 POC ABG pO2 Sodium Potassium Chloride Carbon Dioxide BUN Creatinine Glucose POC Glucose 111 H 118 H 112 H Lactic Acid Uric Acid Calcium Phosphorus Iron TIBC Erythropoietin Ferritin Total Bilirubin Direct Bilirubin AST ALT Alkaline Phosphatase Lactate Dehydrogenase C-Reactive Protein Serum Total Protein Total Protein Albumin Rloxk-1-Mlpscauyb Abnorm Protein Band 1 PEP Interpretation Crossmatch 10/18/16 10/18/16 10/18/16 05:00 05:00 05:15 WBC 27.3 H RBC 2.75 L Hgb 7.9 L Hct 25.3 L MCV MCHC 31 L RDW 20.7 H Plt Count 31 L Seg Neuts % (Manual) 87.0 H Lymphocytes % (Manual) 1.0 L Nucleated RBC % 1.0 H Seg Neutrophils # Man 23.8 H Lymphocytes # (Manual) 0.3 L Haptoglobin PT INR Fibrinogen Lupus Anticoagulant LA PTT Baseline POC ABG pH 7.466 H POC ABG pCO2 25.1 L POC ABG pO2 Sodium Potassium Chloride 88.7 L Carbon Dioxide 18 L BUN 66 H Creatinine 4.7 H Glucose POC Glucose Lactic Acid Uric Acid Calcium 6.1 L Phosphorus 7.30 H D Iron TIBC Erythropoietin Ferritin Total Bilirubin Direct Bilirubin AST ALT Alkaline Phosphatase Lactate Dehydrogenase C-Reactive Protein Serum Total Protein Total Protein Albumin Fmtpt-4-Ghtempadf Abnorm Protein Band 1 PEP Interpretation Crossmatch 10/18/16 10/18/16 10/18/16 07:15 07:44 09:07 WBC RBC Hgb Hct MCV MCHC RDW Plt Count Seg Neuts % (Manual) Lymphocytes % (Manual) Nucleated RBC % Seg Neutrophils # Man Lymphocytes # (Manual) Haptoglobin PT INR Fibrinogen Lupus Anticoagulant LA PTT Baseline POC ABG pH POC ABG pCO2 POC ABG pO2 Sodium Potassium Chloride Carbon Dioxide BUN Creatinine Glucose POC Glucose 64 L 156 H 117 H Lactic Acid Uric Acid Calcium Phosphorus Iron TIBC Erythropoietin Ferritin Total Bilirubin Direct Bilirubin AST ALT Alkaline Phosphatase Lactate Dehydrogenase C-Reactive Protein Serum Total Protein Total Protein Albumin Jnyef-2-Zuyhbzinp Abnorm Protein Band 1 PEP Interpretation Crossmatch 10/18/16 10/18/16 10/18/16 09:15 14:00 18:21 WBC RBC Hgb Hct MCV MCHC RDW Plt Count Seg Neuts % (Manual) Lymphocytes % (Manual) Nucleated RBC % Seg Neutrophils # Man Lymphocytes # (Manual) Haptoglobin PT INR Fibrinogen Lupus Anticoagulant LA PTT Baseline POC ABG pH POC ABG pCO2 POC ABG pO2 Sodium Potassium Chloride Carbon Dioxide BUN Creatinine Glucose POC Glucose 106 H 112 H Lactic Acid 14.30 H* Uric Acid Calcium Phosphorus Iron TIBC Erythropoietin Ferritin Total Bilirubin Direct Bilirubin AST ALT Alkaline Phosphatase Lactate Dehydrogenase C-Reactive Protein Serum Total Protein Total Protein Albumin Aeulk-3-Gbzdayjmu Abnorm Protein Band 1 PEP Interpretation Crossmatch 10/18/16 10/18/16 10/18/16 19:58 20:55 22:11 WBC RBC Hgb Hct MCV MCHC RDW Plt Count Seg Neuts % (Manual) Lymphocytes % (Manual) Nucleated RBC % Seg Neutrophils # Man Lymphocytes # (Manual) Haptoglobin PT INR Fibrinogen Lupus Anticoagulant LA PTT Baseline POC ABG pH POC ABG pCO2 POC ABG pO2 Sodium Potassium Chloride Carbon Dioxide BUN Creatinine Glucose POC Glucose 127 H 125 H 159 H Lactic Acid Uric Acid Calcium Phosphorus Iron TIBC Erythropoietin Ferritin Total Bilirubin Direct Bilirubin AST ALT Alkaline Phosphatase Lactate Dehydrogenase C-Reactive Protein Serum Total Protein Total Protein Albumin Tqboz-4-Ltjnngbpf Abnorm Protein Band 1 PEP Interpretation Crossmatch 10/18/16 10/18/16 10/19/16 23:11 23:57 01:06 WBC RBC Hgb Hct MCV MCHC RDW Plt Count Seg Neuts % (Manual) Lymphocytes % (Manual) Nucleated RBC % Seg Neutrophils # Man Lymphocytes # (Manual) Haptoglobin PT INR Fibrinogen Lupus Anticoagulant LA PTT Baseline POC ABG pH POC ABG pCO2 POC ABG pO2 Sodium Potassium Chloride Carbon Dioxide BUN Creatinine Glucose POC Glucose 122 H 137 H 162 H Lactic Acid Uric Acid Calcium Phosphorus Iron TIBC Erythropoietin Ferritin Total Bilirubin Direct Bilirubin AST ALT Alkaline Phosphatase Lactate Dehydrogenase C-Reactive Protein Serum Total Protein Total Protein Albumin Nmamg-4-Gtwulrqbo Abnorm Protein Band 1 PEP Interpretation Crossmatch 10/19/16 10/19/16 10/19/16 01:59 03:07 04:10 WBC RBC Hgb Hct MCV MCHC RDW Plt Count Seg Neuts % (Manual) Lymphocytes % (Manual) Nucleated RBC % Seg Neutrophils # Man Lymphocytes # (Manual) Haptoglobin PT INR Fibrinogen Lupus Anticoagulant LA PTT Baseline POC ABG pH POC ABG pCO2 POC ABG pO2 Sodium Potassium Chloride Carbon Dioxide BUN Creatinine Glucose POC Glucose 154 H 178 H 186 H Lactic Acid Uric Acid Calcium Phosphorus Iron TIBC Erythropoietin Ferritin Total Bilirubin Direct Bilirubin AST ALT Alkaline Phosphatase Lactate Dehydrogenase C-Reactive Protein Serum Total Protein Total Protein Albumin Ypaib-8-Qimbplopu Abnorm Protein Band 1 PEP Interpretation Crossmatch 10/19/16 10/19/16 10/19/16 05:14 05:15 05:47 WBC RBC Hgb Hct MCV MCHC RDW Plt Count Seg Neuts % (Manual) Lymphocytes % (Manual) Nucleated RBC % Seg Neutrophils # Man Lymphocytes # (Manual) Haptoglobin PT INR Fibrinogen Lupus Anticoagulant LA PTT Baseline POC ABG pH 7.581 H POC ABG pCO2 22.9 L POC ABG pO2 58 L Sodium Potassium Chloride Carbon Dioxide BUN Creatinine Glucose POC Glucose 197 H 204 H Lactic Acid Uric Acid Calcium Phosphorus Iron TIBC Erythropoietin Ferritin Total Bilirubin Direct Bilirubin AST ALT Alkaline Phosphatase Lactate Dehydrogenase C-Reactive Protein Serum Total Protein Total Protein Albumin Noqnj-2-Oewqkkewc Abnorm Protein Band 1 PEP Interpretation Crossmatch 10/19/16 10/19/16 10/19/16 06:00 06:00 07:51 WBC 23.0 H RBC 2.54 L Hgb 7.5 L Hct 23.0 L MCV MCHC RDW 20.7 H Plt Count 25 L Seg Neuts % (Manual) 91.0 H Lymphocytes % (Manual) 2.0 L Nucleated RBC % 1.0 H Seg Neutrophils # Man 20.9 H Lymphocytes # (Manual) 0.5 L Haptoglobin PT INR Fibrinogen Lupus Anticoagulant LA PTT Baseline POC ABG pH POC ABG pCO2 POC ABG pO2 Sodium Potassium Chloride 88.7 L Carbon Dioxide 21 L BUN 70 H Creatinine 3.9 H Glucose 189 H POC Glucose 145 H Lactic Acid Uric Acid Calcium 5.6 L* Phosphorus 6.30 H Iron TIBC Erythropoietin Ferritin Total Bilirubin Direct Bilirubin AST ALT Alkaline Phosphatase Lactate Dehydrogenase C-Reactive Protein Serum Total Protein Total Protein Albumin Siuog-2-Okjdijhnk Abnorm Protein Band 1 PEP Interpretation Crossmatch 10/19/16 10/19/16 10/19/16 09:14 10:01 12:14 WBC RBC Hgb Hct MCV MCHC RDW Plt Count Seg Neuts % (Manual) Lymphocytes % (Manual) Nucleated RBC % Seg Neutrophils # Man Lymphocytes # (Manual) Haptoglobin PT INR Fibrinogen Lupus Anticoagulant LA PTT Baseline POC ABG pH POC ABG pCO2 POC ABG pO2 Sodium Potassium Chloride Carbon Dioxide BUN Creatinine Glucose POC Glucose 173 H 153 H 180 H Lactic Acid Uric Acid Calcium Phosphorus Iron TIBC Erythropoietin Ferritin Total Bilirubin Direct Bilirubin AST ALT Alkaline Phosphatase Lactate Dehydrogenase C-Reactive Protein Serum Total Protein Total Protein Albumin Sjzik-9-Uulyazeyt Abnorm Protein Band 1 PEP Interpretation Crossmatch 10/19/16 10/19/16 10/19/16 14:15 16:38 20:27 WBC RBC Hgb Hct MCV MCHC RDW Plt Count Seg Neuts % (Manual) Lymphocytes % (Manual) Nucleated RBC % Seg Neutrophils # Man Lymphocytes # (Manual) Haptoglobin PT INR Fibrinogen Lupus Anticoagulant LA PTT Baseline POC ABG pH POC ABG pCO2 POC ABG pO2 Sodium Potassium Chloride Carbon Dioxide BUN Creatinine Glucose POC Glucose 194 H 202 H Lactic Acid Uric Acid Calcium Phosphorus Iron TIBC Erythropoietin 148.2 H Ferritin Total Bilirubin Direct Bilirubin AST ALT Alkaline Phosphatase Lactate Dehydrogenase C-Reactive Protein Serum Total Protein Total Protein Albumin Kenga-3-Bhspxcmxr Abnorm Protein Band 1 PEP Interpretation Crossmatch 10/19/16 10/20/16 10/20/16 23:27 04:06 05:00 WBC RBC Hgb Hct MCV MCHC RDW Plt Count Seg Neuts % (Manual) Lymphocytes % (Manual) Nucleated RBC % Seg Neutrophils # Man Lymphocytes # (Manual) Haptoglobin PT INR Fibrinogen Lupus Anticoagulant LA PTT Baseline POC ABG pH POC ABG pCO2 POC ABG pO2 Sodium Potassium Chloride 88.8 L Carbon Dioxide BUN 93 H Creatinine 4.3 H Glucose 204 H POC Glucose 201 H 200 H Lactic Acid Uric Acid Calcium 5.2 L* Phosphorus Iron TIBC Erythropoietin Ferritin Total Bilirubin Direct Bilirubin AST ALT Alkaline Phosphatase Lactate Dehydrogenase C-Reactive Protein Serum Total Protein Total Protein Albumin Pidwh-9-Gqkilgver Abnorm Protein Band 1 PEP Interpretation Crossmatch 10/20/16 10/20/16 10/20/16 05:16 06:00 07:43 WBC 24.8 H RBC 2.52 L Hgb 7.4 L Hct 22.9 L MCV MCHC RDW 19.9 H Plt Count 23 L Seg Neuts % (Manual) 97.0 H Lymphocytes % (Manual) 1.0 L Nucleated RBC % 9.0 H Seg Neutrophils # Man 24.1 H Lymphocytes # (Manual) 0.2 L Haptoglobin PT INR Fibrinogen Lupus Anticoagulant LA PTT Baseline POC ABG pH 7.463 H POC ABG pCO2 POC ABG pO2 157 H Sodium Potassium Chloride Carbon Dioxide BUN Creatinine Glucose POC Glucose 192 H Lactic Acid Uric Acid Calcium Phosphorus Iron TIBC Erythropoietin Ferritin Total Bilirubin Direct Bilirubin AST ALT Alkaline Phosphatase Lactate Dehydrogenase C-Reactive Protein Serum Total Protein Total Protein Albumin Baoyl-5-Moegfqnvg Abnorm Protein Band 1 PEP Interpretation Crossmatch 10/20/16 10/20/16 10/20/16 12:11 15:32 21:23 WBC RBC Hgb Hct MCV MCHC RDW Plt Count Seg Neuts % (Manual) Lymphocytes % (Manual) Nucleated RBC % Seg Neutrophils # Man Lymphocytes # (Manual) Haptoglobin PT INR Fibrinogen Lupus Anticoagulant LA PTT Baseline POC ABG pH POC ABG pCO2 POC ABG pO2 Sodium Potassium Chloride Carbon Dioxide BUN Creatinine Glucose POC Glucose 172 H 216 H 271 H Lactic Acid Uric Acid Calcium Phosphorus Iron TIBC Erythropoietin Ferritin Total Bilirubin Direct Bilirubin AST ALT Alkaline Phosphatase Lactate Dehydrogenase C-Reactive Protein Serum Total Protein Total Protein Albumin Wlyet-2-Uezzdracw Abnorm Protein Band 1 PEP Interpretation Crossmatch 10/20/16 10/21/16 10/21/16 23:49 03:53 04:58 WBC RBC Hgb Hct MCV MCHC RDW Plt Count Seg Neuts % (Manual) Lymphocytes % (Manual) Nucleated RBC % Seg Neutrophils # Man Lymphocytes # (Manual) Haptoglobin PT INR Fibrinogen Lupus Anticoagulant LA PTT Baseline POC ABG pH 7.459 H POC ABG pCO2 POC ABG pO2 113 H Sodium 136 L Potassium 2.8 L* D Chloride 91.6 L Carbon Dioxide BUN 62 H Creatinine 2.8 H Glucose 236 H POC Glucose 317 H Lactic Acid Uric Acid Calcium 6.2 L D Phosphorus Iron TIBC Erythropoietin Ferritin Total Bilirubin 2.70 H Direct Bilirubin AST 73 H ALT 57 H Alkaline Phosphatase 158 H Lactate Dehydrogenase C-Reactive Protein Serum Total Protein Total Protein 4.9 L Albumin 2.6 L Rpkvc-1-Aejhndrvu Abnorm Protein Band 1 PEP Interpretation Crossmatch 10/21/16 10/21/16 10/21/16 05:25 07:11 10:30 WBC 28.1 H RBC 2.36 L Hgb 7.0 L Hct 21.6 L MCV MCHC RDW 20.0 H Plt Count 14 L* Seg Neuts % (Manual) 92.0 H Lymphocytes % (Manual) 0 L Nucleated RBC % 5.0 H Seg Neutrophils # Man 25.9 H Lymphocytes # (Manual) 0.0 L Haptoglobin PT INR Fibrinogen Lupus Anticoagulant LA PTT Baseline POC ABG pH POC ABG pCO2 POC ABG pO2 Sodium Potassium Chloride Carbon Dioxide BUN Creatinine Glucose POC Glucose 237 H 206 H Lactic Acid Uric Acid Calcium Phosphorus Iron TIBC Erythropoietin Ferritin Total Bilirubin Direct Bilirubin AST ALT Alkaline Phosphatase Lactate Dehydrogenase C-Reactive Protein Serum Total Protein Total Protein Albumin Fujvr-1-Hqkizoerd Abnorm Protein Band 1 PEP Interpretation Crossmatch 10/21/16 10/21/16 10/21/16 11:25 12:31 16:33 WBC RBC Hgb Hct MCV MCHC RDW Plt Count Seg Neuts % (Manual) Lymphocytes % (Manual) Nucleated RBC % Seg Neutrophils # Man Lymphocytes # (Manual) Haptoglobin PT 49.1 H INR 5.28 H* Fibrinogen Lupus Anticoagulant LA PTT Baseline POC ABG pH POC ABG pCO2 POC ABG pO2 Sodium Potassium Chloride Carbon Dioxide BUN Creatinine Glucose POC Glucose 145 H 151 H Lactic Acid Uric Acid Calcium Phosphorus Iron TIBC Erythropoietin Ferritin Total Bilirubin Direct Bilirubin AST ALT Alkaline Phosphatase Lactate Dehydrogenase C-Reactive Protein Serum Total Protein Total Protein Albumin Anlyw-7-Kdngjbqqs Abnorm Protein Band 1 PEP Interpretation Crossmatch 10/21/16 10/22/16 10/22/16 19:53 00:00 05:23 WBC RBC Hgb Hct MCV MCHC RDW Plt Count Seg Neuts % (Manual) Lymphocytes % (Manual) Nucleated RBC % Seg Neutrophils # Man Lymphocytes # (Manual) Haptoglobin PT INR Fibrinogen Lupus Anticoagulant LA PTT Baseline POC ABG pH POC ABG pCO2 POC ABG pO2 Sodium Potassium Chloride Carbon Dioxide BUN Creatinine Glucose POC Glucose 170 H 168 H 131 H Lactic Acid Uric Acid Calcium Phosphorus Iron TIBC Erythropoietin Ferritin Total Bilirubin Direct Bilirubin AST ALT Alkaline Phosphatase Lactate Dehydrogenase C-Reactive Protein Serum Total Protein Total Protein Albumin Rjjmu-6-Yscrdhhcn Abnorm Protein Band 1 PEP Interpretation Crossmatch 10/22/16 10/22/16 10/22/16 05:25 05:35 13:03 WBC RBC Hgb Hct MCV MCHC RDW Plt Count Seg Neuts % (Manual) Lymphocytes % (Manual) Nucleated RBC % Seg Neutrophils # Man Lymphocytes # (Manual) Haptoglobin PT INR Fibrinogen Lupus Anticoagulant LA PTT Baseline POC ABG pH 7.462 H POC ABG pCO2 POC ABG pO2 Sodium 135 L Potassium 3.0 L Chloride 88.5 L Carbon Dioxide BUN 84 H Creatinine 3.4 H Glucose 124 H POC Glucose 164 H Lactic Acid Uric Acid Calcium 5.9 L* Phosphorus Iron TIBC Erythropoietin Ferritin Total Bilirubin 2.00 H Direct Bilirubin AST 85 H ALT Alkaline Phosphatase 199 H Lactate Dehydrogenase C-Reactive Protein Serum Total Protein Total Protein 5.0 L Albumin 2.5 L Rigmb-5-Vefiryhlh Abnorm Protein Band 1 PEP Interpretation Crossmatch 10/22/16 10/22/16 10/23/16 17:14 23:16 04:47 WBC RBC Hgb Hct MCV MCHC RDW Plt Count Seg Neuts % (Manual) Lymphocytes % (Manual) Nucleated RBC % Seg Neutrophils # Man Lymphocytes # (Manual) Haptoglobin PT INR Fibrinogen Lupus Anticoagulant LA PTT Baseline POC ABG pH 7.476 H POC ABG pCO2 POC ABG pO2 108 H Sodium Potassium Chloride Carbon Dioxide BUN Creatinine Glucose POC Glucose 188 H 167 H Lactic Acid Uric Acid Calcium Phosphorus Iron TIBC Erythropoietin Ferritin Total Bilirubin Direct Bilirubin AST ALT Alkaline Phosphatase Lactate Dehydrogenase C-Reactive Protein Serum Total Protein Total Protein Albumin Txwpg-0-Bqwreqgxj Abnorm Protein Band 1 PEP Interpretation Crossmatch 10/23/16 10/23/16 10/23/16 05:49 07:00 07:12 WBC 24.2 H RBC 2.27 L Hgb 7.0 L Hct 21.1 L MCV MCHC RDW 19.7 H Plt Count 35 L D Seg Neuts % (Manual) Lymphocytes % (Manual) Nucleated RBC % Seg Neutrophils # Man Lymphocytes # (Manual) Haptoglobin PT INR Fibrinogen Lupus Anticoagulant LA PTT Baseline POC ABG pH POC ABG pCO2 POC ABG pO2 Sodium Potassium 3.5 L Chloride 95.7 L Carbon Dioxide BUN 55 H Creatinine 2.7 H Glucose 103 H POC Glucose 106 H Lactic Acid Uric Acid Calcium 7.1 L D Phosphorus Iron TIBC Erythropoietin Ferritin Total Bilirubin Direct Bilirubin AST ALT Alkaline Phosphatase Lactate Dehydrogenase C-Reactive Protein Serum Total Protein Total Protein Albumin Mwcch-2-Kcjmgzynl Abnorm Protein Band 1 PEP Interpretation Crossmatch 10/24/16 10/24/16 10/24/16 00:12 05:16 07:00 WBC 17.9 H RBC 2.12 L Hgb 6.5 L Hct 19.9 L* MCV MCHC RDW 19.3 H Plt Count 44 L Seg Neuts % (Manual) Lymphocytes % (Manual) Nucleated RBC % Seg Neutrophils # Man Lymphocytes # (Manual) Haptoglobin PT INR Fibrinogen Lupus Anticoagulant LA PTT Baseline POC ABG pH POC ABG pCO2 POC ABG pO2 Sodium Potassium Chloride Carbon Dioxide BUN Creatinine Glucose POC Glucose 116 H 135 H Lactic Acid Uric Acid Calcium Phosphorus Iron TIBC Erythropoietin Ferritin Total Bilirubin Direct Bilirubin AST ALT Alkaline Phosphatase Lactate Dehydrogenase C-Reactive Protein Serum Total Protein Total Protein Albumin Juiwz-2-Lhyrrfioi Abnorm Protein Band 1 PEP Interpretation Crossmatch 10/24/16 10/24/16 10/24/16 07:00 11:45 12:12 WBC RBC Hgb Hct MCV MCHC RDW Plt Count Seg Neuts % (Manual) Lymphocytes % (Manual) Nucleated RBC % Seg Neutrophils # Man Lymphocytes # (Manual) Haptoglobin PT INR Fibrinogen Lupus Anticoagulant LA PTT Baseline POC ABG pH POC ABG pCO2 POC ABG pO2 Sodium Potassium Chloride 92.9 L Carbon Dioxide BUN 74 H Creatinine 3.3 H Glucose 136 H POC Glucose 177 H Lactic Acid Uric Acid Calcium 6.6 L Phosphorus Iron TIBC Erythropoietin Ferritin Total Bilirubin 2.10 H Direct Bilirubin AST 68 H ALT Alkaline Phosphatase 224 H Lactate Dehydrogenase C-Reactive Protein Serum Total Protein Total Protein 4.8 L Albumin 2.3 L Fgjon-0-Cfutzckus Abnorm Protein Band 1 PEP Interpretation Crossmatch See Detail 10/24/16 10/24/16 10/24/16 16:30 16:30 17:28 WBC RBC Hgb Hct MCV MCHC RDW Plt Count Seg Neuts % (Manual) Lymphocytes % (Manual) Nucleated RBC % Seg Neutrophils # Man Lymphocytes # (Manual) Haptoglobin PT INR Fibrinogen Lupus Anticoagulant LA PTT Baseline POC ABG pH POC ABG pCO2 POC ABG pO2 Sodium Potassium Chloride Carbon Dioxide BUN Creatinine Glucose POC Glucose 128 H Lactic Acid 3.00 H* Uric Acid Calcium Phosphorus Iron TIBC Erythropoietin Ferritin Total Bilirubin Direct Bilirubin AST ALT Alkaline Phosphatase Lactate Dehydrogenase C-Reactive Protein 7.40 H Serum Total Protein Total Protein Albumin Zzxui-0-Ujuejabjx Abnorm Protein Band 1 PEP Interpretation Crossmatch 10/24/16 10/24/16 10/25/16 18:40 23:32 05:00 WBC 17.5 H RBC 2.99 L Hgb 9.1 L Hct 26.9 L D MCV MCHC RDW 17.7 H Plt Count 53 L Seg Neuts % (Manual) Lymphocytes % (Manual) Nucleated RBC % Seg Neutrophils # Man Lymphocytes # (Manual) Haptoglobin PT INR Fibrinogen Lupus Anticoagulant LA PTT Baseline POC ABG pH POC ABG pCO2 POC ABG pO2 Sodium Potassium Chloride Carbon Dioxide BUN Creatinine Glucose POC Glucose 140 H Lactic Acid 3.10 H* Uric Acid Calcium Phosphorus Iron TIBC Erythropoietin Ferritin Total Bilirubin Direct Bilirubin AST ALT Alkaline Phosphatase Lactate Dehydrogenase C-Reactive Protein Serum Total Protein Total Protein Albumin Qycwo-6-Rdsqrikyb Abnorm Protein Band 1 PEP Interpretation Crossmatch 10/25/16 10/25/16 10/25/16 05:00 05:22 11:58 WBC RBC Hgb Hct MCV MCHC RDW Plt Count Seg Neuts % (Manual) Lymphocytes % (Manual) Nucleated RBC % Seg Neutrophils # Man Lymphocytes # (Manual) Haptoglobin PT INR Fibrinogen Lupus Anticoagulant LA PTT Baseline POC ABG pH POC ABG pCO2 POC ABG pO2 Sodium Potassium Chloride 91.6 L Carbon Dioxide BUN 89 H Creatinine 3.9 H Glucose 150 H POC Glucose 164 H 189 H Lactic Acid Uric Acid Calcium 6.9 L Phosphorus Iron TIBC Erythropoietin Ferritin Total Bilirubin Direct Bilirubin AST ALT Alkaline Phosphatase Lactate Dehydrogenase C-Reactive Protein Serum Total Protein Total Protein Albumin Rcuty-7-Lbtpcbkyj Abnorm Protein Band 1 PEP Interpretation Crossmatch 10/25/16 10/25/16 10/26/16 17:56 23:12 04:00 WBC RBC Hgb Hct MCV MCHC RDW Plt Count Seg Neuts % (Manual) Lymphocytes % (Manual) Nucleated RBC % Seg Neutrophils # Man Lymphocytes # (Manual) Haptoglobin PT INR Fibrinogen Lupus Anticoagulant LA PTT Baseline POC ABG pH POC ABG pCO2 POC ABG pO2 Sodium 135 L Potassium Chloride 90.7 L Carbon Dioxide BUN 64 H Creatinine 2.9 H Glucose 132 H POC Glucose 156 H 133 H Lactic Acid Uric Acid Calcium 7.3 L Phosphorus Iron TIBC Erythropoietin Ferritin Total Bilirubin Direct Bilirubin AST ALT Alkaline Phosphatase Lactate Dehydrogenase C-Reactive Protein Serum Total Protein Total Protein Albumin Jrdal-2-Joeoautrm Abnorm Protein Band 1 PEP Interpretation Crossmatch 10/26/16 10/26/16 10/26/16 05:14 06:15 11:51 WBC 18.6 H RBC 3.15 L Hgb 9.6 L Hct 29.0 L MCV MCHC RDW 17.8 H Plt Count 71 L Seg Neuts % (Manual) 85.0 H Lymphocytes % (Manual) 1.0 L Nucleated RBC % Seg Neutrophils # Man 15.8 H Lymphocytes # (Manual) 0.2 L Haptoglobin PT INR Fibrinogen Lupus Anticoagulant LA PTT Baseline POC ABG pH POC ABG pCO2 POC ABG pO2 Sodium Potassium Chloride Carbon Dioxide BUN Creatinine Glucose POC Glucose 130 H 139 H Lactic Acid Uric Acid Calcium Phosphorus Iron TIBC Erythropoietin Ferritin Total Bilirubin Direct Bilirubin AST ALT Alkaline Phosphatase Lactate Dehydrogenase C-Reactive Protein Serum Total Protein Total Protein Albumin Fxrgd-3-Fqnhordgo Abnorm Protein Band 1 PEP Interpretation Crossmatch 10/26/16 10/26/16 10/27/16 17:25 23:35 04:10 WBC 16.8 H RBC 3.38 L Hgb 10.1 L Hct 31.0 L MCV MCHC RDW 18.0 H Plt Count 77 L Seg Neuts % (Manual) 92.0 H Lymphocytes % (Manual) 1.0 L Nucleated RBC % 1.0 H Seg Neutrophils # Man 15.5 H Lymphocytes # (Manual) 0.2 L Haptoglobin PT INR Fibrinogen Lupus Anticoagulant LA PTT Baseline POC ABG pH POC ABG pCO2 POC ABG pO2 Sodium Potassium Chloride Carbon Dioxide BUN Creatinine Glucose POC Glucose 118 H 145 H Lactic Acid Uric Acid Calcium Phosphorus Iron TIBC Erythropoietin Ferritin Total Bilirubin Direct Bilirubin AST ALT Alkaline Phosphatase Lactate Dehydrogenase C-Reactive Protein Serum Total Protein Total Protein Albumin Xgjud-1-Rzijgzxbv Abnorm Protein Band 1 PEP Interpretation Crossmatch 10/27/16 10/27/16 10/27/16 04:10 05:53 08:14 WBC RBC Hgb Hct MCV MCHC RDW Plt Count Seg Neuts % (Manual) Lymphocytes % (Manual) Nucleated RBC % Seg Neutrophils # Man Lymphocytes # (Manual) Haptoglobin PT 23.0 H INR 2.03 H Fibrinogen Lupus Anticoagulant LA PTT Baseline POC ABG pH POC ABG pCO2 POC ABG pO2 Sodium Potassium Chloride 95.5 L Carbon Dioxide BUN 63 H Creatinine 2.8 H Glucose 112 H POC Glucose 127 H Lactic Acid Uric Acid Calcium 7.5 L Phosphorus Iron TIBC Erythropoietin Ferritin Total Bilirubin Direct Bilirubin AST ALT Alkaline Phosphatase Lactate Dehydrogenase C-Reactive Protein Serum Total Protein Total Protein Albumin Hwthi-6-Ecmmweyzv Abnorm Protein Band 1 PEP Interpretation Crossmatch Allied health notes reviewed: RT
--- NOTE | 2016-10-27 12:43 | Progress Note ---
Assessment and Plan (1) Renal failure Current Visit: Yes Status: Acute Qualifiers: Renal failure chronicity: acute Acute renal failure type: unspecified Chronic kidney disease stage: C Qualified Code(s): N17.9 - Acute kidney failure, unspecified Plan to address problem: no indication for HD today Strict I/O monitoring Avoid Nephrotoxic agents Renally dose medications Obtain daily weights Monitor renal function daily (2) Acute respiratory failure Current Visit: Yes Status: Acute Qualifiers: Respiratory failure complication: hypoxia Qualified Code(s): J96.01 - Acute respiratory failure with hypoxia Plan to address problem: Intubated as per Pulmonary (3) Anemia Current Visit: Yes Status: Acute Qualifiers: Anemia type: unspecified type Iron deficiency anemia type: I Vitamin B12 deficiency anemia type: V Folate deficiency anemia type: F Bone marrow failure anemia type: B Hemolytic anemia type: H Other causes of anemia: O Qualified Code(s): D64.9 - Anemia, unspecified Plan to address problem: Monitor labs and transfuse as needed Hematology onboard (4) Thrombocytopenia Current Visit: Yes Status: Acute Plan to address problem: Possible TTP Plasmaphareis therapy on hold until [id number] is resulted Hematology onboard (5) Atrial fibrillation Current Visit: Yes Status: Acute Qualifiers: Atrial fibrillation type: A Plan to address problem: followed by cardiology, on BB Subjective Date of service: 10/27/16 Principal diagnosis: Sepsis Syndrome; MAHA; RAJESH; CHF; TTP Interval history: intubated, does not answer questions, no family at bedside Objective - Vital Signs Vital signs: Vital Signs - 12hr 10/27/16 10/27/16 10/27/16 01:00 01:30 02:00 Temperature Pulse Rate 72 74 71 Pulse Rate [ From Monitor] Respiratory 18 18 18 Rate Respiratory Rate [BILATERAL KNEES] Blood Pressure 111/73 126/83 111/73 O2 Sat by Pulse 100 100 99 Oximetry 10/27/16 10/27/16 10/27/16 02:30 03:00 03:30 Temperature Pulse Rate 71 73 84 Pulse Rate [ From Monitor] Respiratory 18 18 15 Rate Respiratory Rate [BILATERAL KNEES] Blood Pressure 109/72 113/77 113/77 O2 Sat by Pulse 100 100 99 Oximetry 10/27/16 10/27/16 10/27/16 04:00 04:30 05:00 Temperature 96.7 F L Pulse Rate 68 69 69 Pulse Rate [ 69 From Monitor] Respiratory 18 18 18 Rate Respiratory Rate [BILATERAL KNEES] Blood Pressure 125/89 125/89 124/86 O2 Sat by Pulse 100 100 97 Oximetry 10/27/16 10/27/16 10/27/16 05:30 06:00 06:30 Temperature Pulse Rate 68 66 68 Pulse Rate [ From Monitor] Respiratory 18 18 18 Rate Respiratory Rate [BILATERAL KNEES] Blood Pressure 132/91 119/82 122/83 O2 Sat by Pulse 100 100 100 Oximetry 10/27/16 10/27/16 10/27/16 07:00 07:30 08:00 Temperature 98.7 F Pulse Rate 68 68 70 Pulse Rate [ 72 From Monitor] Respiratory 18 18 18 Rate Respiratory Rate [BILATERAL KNEES] Blood Pressure 124/85 122/86 120/82 O2 Sat by Pulse 100 99 99 Oximetry 10/27/16 10/27/16 10/27/16 08:30 08:57 09:00 Temperature Pulse Rate 69 70 74 Pulse Rate [ From Monitor] Respiratory 18 17 Rate Respiratory Rate [BILATERAL KNEES] Blood Pressure 109/75 109/75 138/100 O2 Sat by Pulse 100 100 99 Oximetry 10/27/16 10/27/16 10/27/16 09:30 10:00 11:33 Temperature Pulse Rate 72 71 75 Pulse Rate [ From Monitor] Respiratory 18 18 15 Rate Respiratory 28 H Rate [BILATERAL KNEES] Blood Pressure 127/84 128/82 105/67 O2 Sat by Pulse 100 100 100 Oximetry 10/27/16 12:00 Temperature 98.9 F Pulse Rate Pulse Rate [ From Monitor] Respiratory Rate Respiratory Rate [BILATERAL KNEES] Blood Pressure O2 Sat by Pulse Oximetry - General Appearance General appearance: sedated on ventilator EENT: ATNC, PERRL, mucous membranes dry Neck: no JVD, no carotid bruit Respiratory: Present: Clear to Ascultation Cardiology: regular, S1S2 Gastrointestinal: normoactive bowel sounds Integumentary: no rash, warm and dry Neurologic: other (intubated) Musculoskeletal: other (trace pitting edema in BLE) Psychiatric: other (intubated) - Lab 10/27/16 04:10 10/27/16 04:10 Most recent lab results Calcium 7.5 mg/dL (8.4-10.2) L 10/27/16 04:10 Phosphorus 6.30 mg/dL (2.5-4.5) H 10/19/16 06:00
[2016-10-27] MEDS: LOPRESSOR PO SCH ×2 (13:35→21:50)
[2016-10-27] MEDS: PEPCID PO SCH (13:36)
--- NOTE | 2016-10-27 14:51 | Progress Note ---
Assessment and Plan Assessment and plan: Patient is a 61-year-old man without known past medical history who presented to the emergency department [facility] on 10/13/16, complaining of bilateral leg swelling that worsened for the last 4 days. He was found to have severe metabolic acidosis, creatinine was 14.5 with hyperkalemia, emergent Hemodialysis was set up. He was also found to have severe pancytopenia and thrombocytopenia. Dr. 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 He was on bipap and was intubated 10/16/16, details are not readily available on why he needed to be intubated, no nursing note for . -Acute encephalopathy, not sedated, will consult Neurology. -AFIB WITH RVR: Cardiology is following -Group B strep bacteremia: JONATHAN pending, but plt count too low, probably when plt count over 50k -Acute Respiratory failure with hypoxia, intubated: continue mv -Pancytopenia [leukopenia, severe anemia, Woresening thrombocytopenia] heme/onc is following, s/p PLASMAPHERSIS, s/p PRBC transfusion -ARF/End-stage renal disease -secondary coagulopathy -Lactic acidosis -Probable TTP, await ADAMTS results -hypoglycemia -Acute systolic congestive heart failure EF around 30% -SEVERE SEPSIS, poa History Interval history: Patient seen and examined. Follow up on respiratory failure, patient still intubated. Overnight uneventful. No cp, sob, n/v or severe headaches. Imaging, old records, testing, labs, nursing notes reviewed. Hospitalist Physical - Physical exam Narrative exam: GEN: Critically ill intubated but not sedated HEENT: Eyes are floating, ET tube in place CVS: irregular, NORMAL S1S2 LUNGS/CHEST: NORMAL CHEST EXPANSION B, GOOD AIR ENTRY B ABD: SOFT, POSITIVE BOWEL SOUNDS, NONDISTENDED, NO REBOUND OR GUARDING NEURO: CN 2-12 GROSSLY INTACT, he doesn't follow commands PSY: Unresponsive - Constitutional Vitals: Temp Pulse Resp BP Pulse Ox 98.9 F 77 15 112/72 98 10/27/16 12:00 10/27/16 13:35 10/27/16 13:00 10/27/16 13:35 10/27/16 12:30 General appearance: Present: no acute distress Results - Labs CBC & Chem 7: 10/27/16 04:10 10/27/16 04:10 Labs: Laboratory Last Values WBC 16.8 K/mm3 (4.5-11.0) H 10/27/16 04:10 RBC 3.38 M/mm3 (3.65-5.03) L 10/27/16 04:10 Hgb 10.1 gm/dl (11.8-15.2) L 10/27/16 04:10 Hct 31.0 % (35.5-45.6) L 10/27/16 04:10 MCV 92 fl (84-94) 10/27/16 04:10 MCH 30 pg (28-32) 10/27/16 04:10 MCHC 33 % (32-34) 10/27/16 04:10 RDW 18.0 % (13.2-15.2) H 10/27/16 04:10 Plt Count 77 K/mm3 (140-440) L 10/27/16 04:10 Lymph % (Auto) Consulting Solution Manager 10/14/16 04:34 [place] % (Auto) Consulting Solution Manager 10/14/16 04:34 Eos % (Auto) Consulting Solution Manager 10/14/16 04:34 Baso % (Auto) Consulting Solution Manager 10/14/16 04:34 Lymph # Consulting Solution Manager 10/14/16 04:34 [place] # Consulting Solution Manager 10/14/16 04:34 Eos # Consulting Solution Manager 10/14/16 04:34 Baso # Consulting Solution Manager 10/14/16 04:34 Add Manual Diff Complete 10/27/16 04:10 Total Counted 100 10/27/16 04:10 Seg Neutrophils % Consulting Solution Manager 10/26/16 06:15 Seg Neuts % (Manual) 92.0 % (40.0-70.0) H 10/27/16 04:10 Band Neutrophils % 1.0 % 10/27/16 04:10 Lymphocytes % (Manual) 1.0 % (13.4-35.0) L 10/27/16 04:10 Reactive Lymphs % (Man) 0 % 10/27/16 04:10 Monocytes % (Manual) 5.0 % (0.0-7.3) 10/27/16 04:10 Eosinophils % (Manual) 1.0 % (0.0-4.3) 10/27/16 04:10 Basophils % (Manual) 0 % (0.0-1.8) 10/27/16 04:10 Metamyelocytes % 0 % 10/27/16 04:10 Myelocytes % 0 % 10/27/16 04:10 Promyelocytes % 0 % 10/27/16 04:10 Blast Cells % 0 % 10/27/16 04:10 Nucleated RBC % 1.0 % (0.0-0.9) H 10/27/16 04:10 Seg Neutrophils # Consulting Solution Manager 10/14/16 04:34 Seg Neutrophils # Man 15.5 K/mm3 (1.8-7.7) H 10/27/16 04:10 Band Neutrophils # 0.2 K/mm3 10/27/16 04:10 Lymphocytes # (Manual) 0.2 K/mm3 (1.2-5.4) L 10/27/16 04:10 Abs React Lymphs (Man) 0.0 K/mm3 10/27/16 04:10 Monocytes # (Manual) 0.8 K/mm3 (0.0-0.8) 10/27/16 04:10 Eosinophils # (Manual) 0.2 K/mm3 (0.0-0.4) 10/27/16 04:10 Basophils # (Manual) 0.0 K/mm3 (0.0-0.1) 10/27/16 04:10 Metamyelocytes # 0.0 K/mm3 10/27/16 04:10 Myelocytes # 0.0 K/mm3 10/27/16 04:10 Promyelocytes # 0.0 K/mm3 10/27/16 04:10 Blast Cells # 0.0 K/mm3 10/27/16 04:10 WBC Morphology Not Reportable 10/27/16 04:10 Hypersegmented Neuts Not Reportable 10/27/16 04:10 Hyposegmented Neuts Not Reportable 10/27/16 04:10 Hypogranular Neuts Not Reportable 10/27/16 04:10 Smudge Cells Not Reportable 10/27/16 04:10 Toxic Granulation Not Reportable 10/27/16 04:10 Toxic Vacuolation Not Reportable 10/27/16 04:10 Dohle Bodies Not Reportable 10/27/16 04:10 Pelger-Huet Anomaly Not Reportable 10/27/16 04:10 Madhu Rods Not Reportable 10/27/16 04:10 Platelet Estimate Consistent w auto 10/27/16 04:10 Clumped Platelets Not Reportable 10/27/16 04:10 Plt Clumps, EDTA Not Reportable 10/27/16 04:10 Large Platelets 1+ 10/27/16 04:10 Giant Platelets Rare 10/27/16 04:10 Platelet Satelliting Not Reportable 10/27/16 04:10 Plt Morphology Comment Not Reportable 10/27/16 04:10 RBC Morphology Not Reportable 10/27/16 04:10 Dimorphic RBCs Not Reportable 10/27/16 04:10 Polychromasia Not Reportable 10/27/16 04:10 Hypochromasia Not Reportable 10/27/16 04:10 Poikilocytosis Not Reportable 10/27/16 04:10 Basophilic Stippling Rare 10/21/16 10:30 Anisocytosis 1+ 10/27/16 04:10 Microcytosis Not Reportable 10/27/16 04:10 Macrocytosis Not Reportable 10/27/16 04:10 Spherocytes Not Reportable 10/27/16 04:10 Pappenheimer Bodies Not Reportable 10/27/16 04:10 Sickle Cells Not Reportable 10/27/16 04:10 Target Cells Not Reportable 10/27/16 04:10 Tear Drop Cells Not Reportable 10/27/16 04:10 Ovalocytes Not Reportable 10/27/16 04:10 Stomatocytes Few 10/21/16 10:30 Helmet Cells Not Reportable 10/27/16 04:10 Goodman-Onyx Bodies Not Reportable 10/27/16 04:10 [place] Rings Not Reportable 10/27/16 04:10 Hardy Cells Not Reportable 10/27/16 04:10 Bite Cells Not Reportable 10/27/16 04:10 Crenated Cell Not Reportable 10/27/16 04:10 Elliptocytes Not Reportable 10/27/16 04:10 Acanthocytes (Spur) Not Reportable 10/27/16 04:10 Rouleaux Not Reportable 10/27/16 04:10 Hemoglobin C Crystals Not Reportable 10/27/16 04:10 Schistocytes Not Reportable 10/27/16 04:10 Malaria parasites Not Reportable 10/27/16 04:10 ESR 77 mm/Hr (0-20) 10/14/16 04:34 Pal Bodies Not Reportable 10/27/16 04:10 Haptoglobin <15 mg/dL (43-212) L 10/15/16 12:00 Hem Pathologist Commnt No 10/27/16 04:10 PT 23.0 Sec. (12.2-14.9) H 10/27/16 08:14 INR 2.03 (0.87-1.13) H 10/27/16 08:14 Fibrinogen 557 mg/dl (211-480) H 10/14/16 09:58 Lupus Anticoagulant see below H 10/14/16 03:00 LA PTT Baseline 55 sec (<=40) H 10/14/16 03:00 dRVVT Confirm Interp Negative (Negative) 10/14/16 03:00 POC ABG pH 7.476 (7.35-7.45) H 10/23/16 04:47 POC ABG pCO2 37.4 (35-45) 10/23/16 04:47 POC ABG pO2 108 (80-105) H 10/23/16 04:47 POC ABG HCO3 27.6 10/23/16 04:47 POC ABG Total CO2 29 10/23/16 04:47 POC ABG O2 Sat 99 10/23/16 04:47 POC ABG Base Excess 4 10/23/16 04:47 FiO2 25 % 10/23/16 04:47 Sodium 137 mmol/L (137-145) 10/27/16 04:10 Potassium 4.1 mmol/L (3.6-5.0) 10/27/16 04:10 Chloride 95.5 mmol/L (98-107) L 10/27/16 04:10 Carbon Dioxide 24 mmol/L (22-30) 10/27/16 04:10 Anion Gap 22 mmol/L 10/27/16 04:10 BUN 63 mg/dL (9-20) H 10/27/16 04:10 Creatinine 2.8 mg/dL (0.8-1.5) H 10/27/16 04:10 Estimated GFR 23 ml/min 10/27/16 04:10 BUN/Creatinine Ratio 22.50 % 10/27/16 04:10 Glucose 112 mg/dL (75-100) H 10/27/16 04:10 POC Glucose 113 (70-105) H 10/27/16 11:56 Lactic Acid 3.10 mmol/L (0.7-2.0) H* 10/24/16 18:40 Uric Acid 8.0 mg/dL (3.5-7.6) H 10/14/16 03:00 Calcium 7.5 mg/dL (8.4-10.2) L 10/27/16 04:10 Phosphorus 6.30 mg/dL (2.5-4.5) H 10/19/16 06:00 Iron 146 ug/dL (49-181) 10/15/16 05:35 TIBC 166 mcg/dL (250-450) L 10/15/16 05:35 Erythropoietin 148.2 mIU/mL (2.6-18.5) H 10/19/16 14:15 Ferritin 9562.0 ng/mL (13.0-400.0) H 10/15/16 05:35 Total Bilirubin 2.10 mg/dL (0.1-1.2) H 10/24/16 07:00 Direct Bilirubin 1.1 mg/dL (0-0.2) H 10/14/16 09:58 Indirect Bilirubin 0.2 mg/dL 10/14/16 09:58 AST 68 units/L (5-40) H 10/24/16 07:00 ALT 46 units/L (7-56) 10/24/16 07:00 Alkaline Phosphatase 224 units/L (35-129) H 10/24/16 07:00 Ammonia 32.0 umol/L (25-60) 10/19/16 14:15 Lactate Dehydrogenase 3871 units/L (91-180) H 10/15/16 05:35 Troponin T 0.079 ng/mL (0.00-0.029) H 10/13/16 10:14 C-Reactive Protein 7.40 mg/dL (0.00-1.30) H 10/24/16 16:30 NT-Pro-B Natriuret Pep > 52344 pg/mL (0-900) H 10/13/16 10:14 Serum Total Protein 5.6 g/dL (6.1-8.1) L 10/13/16 14:50 Total Protein 4.8 g/dL (6.3-8.2) L 10/24/16 07:00 Albumin 2.3 g/dL (3.9-5) L 10/24/16 07:00 Albumin/Globulin Ratio 0.9 % 10/24/16 07:00 Cvvoa-0-Ndnzfnguh 0.5 g/dL (0.2-0.3) H 10/13/16 14:50 Hhezv-3-Ehyzmtcmz 0.6 g/dL (0.5-0.9) 10/13/16 14:50 Beta Globulins 0.3 g/dL (0.2-0.5) 10/13/16 14:50 Gamma Globulins 1.7 g/dL (0.8-1.7) 10/13/16 14:50 Abnorm Protein Band 1 1.4 g/dL H 10/13/16 14:50 PEP Interpretation see below H 10/13/16 14:50 Triglycerides 119 mg/dL (2-149) 10/13/16 10:14 Cholesterol 71 mg/dL (50-199) 10/13/16 10:14 LDL Cholesterol Direct 41 mg/dL (50-130) L 10/13/16 10:14 HDL Cholesterol 7 mg/dL (40-59) L 10/13/16 10:14 Cholesterol/HDL Ratio 10.14 % 10/13/16 10:14 Lipase 21 units/L (13-60) 10/15/16 05:35 Vitamin B12 893.9 pg/mL (211-911) 10/14/16 03:00 TSH 0.526 mlU/mL (0.270-4.200) 10/19/16 14:15 Random Vancomycin 16.6 ug/mL (0-40.0) 10/25/16 05:00 IgG 1040 mg/dL (694-1618) 10/19/16 14:15 IgA 149 mg/dL (81-463) 10/19/16 14:15 IgM 53 mg/dL (48-271) 10/19/16 14:15 XU Screen Negative (Negative) 10/13/16 14:50 Proteinase 3 (PR3) Ab <1.0 AI (<1.0) 10/13/16 14:50 Myeloperoxidase Ab <1.0 AI (<1.0) 10/13/16 14:50 Glomerular Base Mem IgG <1.0 AI (<1.0) 10/13/16 14:50 Complement C3 101 mg/dL (90-180) 10/13/16 14:50 Complement C4 16 mg/dL (16-47) 10/13/16 14:50 Hep Bs Antigen Non-reactive (Negative) 10/13/16 14:50 Hepatitis C Antibody Non-reactive (NonReactive) 10/13/16 14:50 HIV 1&2 Antibody Rapid Non react (Non React) 10/13/16 14:50 HIV P24 Antigen Non react (Non React) 10/13/16 14:50 Schistocytes Smear None seen 10/15/16 12:00 Flow Intrp 16+ Markers Scanned into [facility] rec 10/14/16 11:30 Flow Cytometry Interp Scanned into [facility] rec 10/14/16 11:30 Blood Type O POSITIVE 10/24/16 11:45 Antibody Screen TNR 10/24/16 11:45 MADIHA Antibody Screen Negative 10/24/16 11:45 Direct Antiglob Test Negative 10/14/16 03:00 ELAINE, Poly Interpret Negative 10/14/16 03:00 Crossmatch See Detail 10/24/16 11:45
[2016-10-27] MEDS ORDERED: FLAGYL FEEDTUBE SCH (15:00)
[2016-10-27] MEDS ORDERED: SIMPLE SYRUP FEEDTUBE PRN ×2 (20:00)
[2016-10-27] MEDS ORDERED: PANCREAZE DR 10,500 UNIT FEEDTUBE PRN (20:00)
[2016-10-27] MEDS ORDERED: SODIUM BICARBONATE FEEDTUBE PRN (20:00)
[2016-10-28] MEDS: NOVOLOG SUB-Q SCH ×4 (00:15→18:42)
[2016-10-28] MEDS: FLAGYL FEEDTUBE SCH ×3 (04:20→21:38)
[2016-10-28 06:27] LABS: Hematocrit 29.3 % (35.5-45.6); Hemoglobin 9.5 gm/dl (11.8-15.2); Mean Corpuscular HGB Conc 33 % (32-34); Mean Corpuscular Hemoglobin 30 pg (28-32); Mean Corpuscular Volume 92 fl (84-94); Red Blood Count 3.18 M/mm3 (3.65-5.03); Red Cell Distribution Width 17.6 % (13.2-15.2); White Blood Count 16.6 K/mm3 (4.5-11.0)
[2016-10-28 06:30] LABS: Platelet Count 83 K/mm3 (140-440)
[2016-10-28 06:45] LABS: BUN/Creatinine Ratio 23.07; Calcium 6.9 mg/dL (8.4-10.2); Chloride 94.6 mmol/L (98-107); Potassium 4.4 mmol/L (3.6-5.0)
[2016-10-28] MEDS ORDERED: VANCOMYCIN/NS 1 GM/250 ML 1 GM/250 ML BAG IV ONE (08:00)
[2016-10-28 08:23] LABS: Blastocytes % (Manual) 0 %
[2016-10-28 08:24] LABS: Anisocytosis 1+; Stomatocytes Few; Target Cells Rare
[2016-10-28 08:25] LABS: Diff Status Complete; Large Platelets Few; Macrocytosis 1+; Platelet Estimate Appe
[2016-10-28] MEDS: PEPCID PO SCH (09:46)
[2016-10-28] MEDS: LOPRESSOR PO SCH ×3 (10:00→22:07)
--- NOTE | 2016-10-28 10:11 | Progress Note ---
Assessment and Plan (1) Renal failure Current Visit: Yes Status: Acute Qualifiers: Renal failure chronicity: acute Acute renal failure type: unspecified Chronic kidney disease stage: C Qualified Code(s): N17.9 - Acute kidney failure, unspecified Plan to address problem: HD today for clearance and volume removal place do will asses dialyssi needs daily and monitor renal recovery closely Strict I/O monitoring Avoid Nephrotoxic agents Renally dose medications Obtain daily weights Monitor renal function daily (2) Acute respiratory failure Current Visit: Yes Status: Acute Qualifiers: Respiratory failure complication: hypoxia Qualified Code(s): J96.01 - Acute respiratory failure with hypoxia Plan to address problem: Intubated as per Pulmonary (3) Anemia Current Visit: Yes Status: Acute Qualifiers: Anemia type: unspecified type Iron deficiency anemia type: I Vitamin B12 deficiency anemia type: V Folate deficiency anemia type: F Bone marrow failure anemia type: B Hemolytic anemia type: H Other causes of anemia: O Qualified Code(s): D64.9 - Anemia, unspecified Plan to address problem: Monitor labs and transfuse as needed Hematology onboard (4) Thrombocytopenia Current Visit: Yes Status: Acute Plan to address problem: Possible TTP Plasmaphareis therapy on hold until [id number] is resulted Hematology onboard (5) Atrial fibrillation Current Visit: Yes Status: Acute Qualifiers: Atrial fibrillation type: A Plan to address problem: followed by cardiology, on BB Subjective Date of service: 10/28/16 Principal diagnosis: Sepsis Syndrome; MAHA; RAJESH; CHF; TTP Interval history: intubated, does not follow commands, at bedside, all questions answered Objective - Vital Signs Vital signs: Vital Signs - 12hr 10/27/16 10/27/16 10/27/16 22:30 22:40 23:00 Temperature Pulse Rate 80 79 77 Pulse Rate [ From Monitor] Respiratory 19 19 18 Rate Blood Pressure 111/71 111/71 106/66 O2 Sat by Pulse 99 99 97 Oximetry 10/27/16 10/28/16 10/28/16 23:30 00:00 00:30 Temperature 98.7 F Pulse Rate 75 82 75 Pulse Rate [ 78 From Monitor] Respiratory 18 19 18 Rate Blood Pressure 106/66 105/68 105/68 O2 Sat by Pulse 98 98 99 Oximetry 10/28/16 10/28/16 10/28/16 00:33 01:00 01:30 Temperature Pulse Rate 76 79 82 Pulse Rate [ From Monitor] Respiratory 20 10 L Rate Blood Pressure 110/73 110/73 105/68 O2 Sat by Pulse 100 99 100 Oximetry 10/28/16 10/28/16 10/28/16 02:00 02:12 02:19 Temperature Pulse Rate 76 80 Pulse Rate [ From Monitor] Respiratory 20 18 Rate Blood Pressure 106/68 O2 Sat by Pulse 98 Oximetry 10/28/16 10/28/16 10/28/16 02:30 03:00 03:30 Temperature Pulse Rate 78 83 80 Pulse Rate [ From Monitor] Respiratory 19 23 21 Rate Blood Pressure 106/68 114/75 114/75 O2 Sat by Pulse 99 98 99 Oximetry 10/28/16 10/28/16 10/28/16 04:00 04:11 04:30 Temperature 98.4 F Pulse Rate 84 74 82 Pulse Rate [ From Monitor] Respiratory 22 23 Rate Blood Pressure 111/77 111/77 111/77 O2 Sat by Pulse 100 99 100 Oximetry 10/28/16 10/28/16 10/28/16 05:00 05:30 06:00 Temperature Pulse Rate 72 80 79 Pulse Rate [ From Monitor] Respiratory 18 21 21 Rate Blood Pressure 104/67 104/67 112/73 O2 Sat by Pulse 100 Oximetry 10/28/16 10/28/16 10/28/16 06:30 07:00 07:30 Temperature Pulse Rate 83 78 78 Pulse Rate [ From Monitor] Respiratory 23 20 22 Rate Blood Pressure 104/67 118/77 118/77 O2 Sat by Pulse 100 99 99 Oximetry 10/28/16 10/28/16 10/28/16 08:00 08:30 09:00 Temperature 99.0 F Pulse Rate 87 78 81 Pulse Rate [ From Monitor] Respiratory 13 19 23 Rate Blood Pressure 115/76 115/76 121/81 O2 Sat by Pulse 99 98 Oximetry - General Appearance General appearance: intubated EENT: ATNC, PERRL, mucous membranes dry Neck: no JVD, no carotid bruit Respiratory: Present: Clear to Ascultation Cardiology: irregular Gastrointestinal: normoactive bowel sounds Integumentary: no rash, warm and dry Neurologic: other (does not follow commands) Psychiatric: other (does not answer questions ) - Lab 10/28/16 05:45 10/28/16 05:45 Most recent lab results Calcium 6.9 mg/dL (8.4-10.2) L 10/28/16 05:45 Phosphorus 6.30 mg/dL (2.5-4.5) H 10/19/16 06:00
--- NOTE | 2016-10-28 11:27 | Progress Note ---
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) - continue HD/UF per nephrology recs - follow I's and O's (oliguric at this point) - correct electrolytes prn - avoid nephrotoxins - per nephrology otherwise (3) Metabolic acidosis Current Visit: Yes Status: Acute Plan to address problem: - mixed etiology - Lactic Acidosis component - sepsis may have been driving force for that - RAJESH component - continue HD/UF per nephrology prescription - Anti-infectives per ID recs - lactate improved (4) CHF (congestive heart failure) Current Visit: Yes Status: Acute Qualifiers: Congestive heart failure type: C Congestive heart failure chronicity: C Plan to address problem: - ECHO consistent with possible infiltrating disease - cardiology consulted - EF 30& - s/p volume resuscitation for sepsis - per cardiology otherwise - JONATHAN negative (5) Pancytopenia Current Visit: Yes Status: Acute Plan to address problem: - hematology on case - continuing plasmapheresis - may need bone marrow evaluation - platelet count continues trending slowly up now (83k today) (6) Acute encephalopathy Current Visit: Yes Status: Acute Plan to address problem: - CT brain negative - likely toxic-metabolic encephalopathy - MRI abnormal - neurology evaluation ongoing - following clinically (7) Hypoglycemia Current Visit: Yes Status: Acute Plan to address problem: - improved - suspect sepsis related element - will continue systemic steroids but taper - also continue enteral nutrition - glycemic control via SSI at this point (8) Sepsis syndrome Current Visit: Yes Status: Acute Plan to address problem: - s/p antibiotic course - ID on case - CRP and lactate much improved - JONATHAN negative - on flagyl - following clinically (9) Discharge planning issues Current Visit: Yes Status: Acute Plan to address problem: - he remains critically ill on life sustaining interventions including MVS and at risk for further deterioration including ...30' CCT Subjective Date of service: 10/28/16 Principal diagnosis: Sepsis Syndrome; MAHA; RAJESH; CHF; TTP Interval history: Seen and examined at bedside; 24 hour events reviewed; nursing and respiratory care staff consulted; no adverse overnight events reported to me; AMS is persistent; tracheostomy consult placed; platelets continue to recover; started on flagyl for empiric C-diff treatment; no new issues otherwise Objective Vital Signs - 12hr 10/27/16 10/28/16 10/28/16 23:30 00:00 00:30 Temperature 98.7 F Pulse Rate 75 82 75 Pulse Rate [ 78 From Monitor] Respiratory 18 19 18 Rate Blood Pressure 106/66 105/68 105/68 O2 Sat by Pulse 98 98 99 Oximetry 10/28/16 10/28/16 10/28/16 00:33 01:00 01:30 Temperature Pulse Rate 76 79 82 Pulse Rate [ From Monitor] Respiratory 20 10 L Rate Blood Pressure 110/73 110/73 105/68 O2 Sat by Pulse 100 99 100 Oximetry 10/28/16 10/28/16 10/28/16 02:00 02:12 02:19 Temperature Pulse Rate 76 80 Pulse Rate [ From Monitor] Respiratory 20 18 Rate Blood Pressure 106/68 O2 Sat by Pulse 98 Oximetry 10/28/16 10/28/16 10/28/16 02:30 03:00 03:30 Temperature Pulse Rate 78 83 80 Pulse Rate [ From Monitor] Respiratory 19 23 21 Rate Blood Pressure 106/68 114/75 114/75 O2 Sat by Pulse 99 98 99 Oximetry 10/28/16 10/28/16 10/28/16 04:00 04:11 04:30 Temperature 98.4 F Pulse Rate 84 74 82 Pulse Rate [ From Monitor] Respiratory 22 23 Rate Blood Pressure 111/77 111/77 111/77 O2 Sat by Pulse 100 99 100 Oximetry 10/28/16 10/28/16 10/28/16 05:00 05:30 06:00 Temperature Pulse Rate 72 80 79 Pulse Rate [ From Monitor] Respiratory 18 21 21 Rate Blood Pressure 104/67 104/67 112/73 O2 Sat by Pulse 100 Oximetry 10/28/16 10/28/16 10/28/16 06:30 07:00 07:30 Temperature Pulse Rate 83 78 78 Pulse Rate [ From Monitor] Respiratory 23 20 22 Rate Blood Pressure 104/67 118/77 118/77 O2 Sat by Pulse 100 99 99 Oximetry 10/28/16 10/28/16 10/28/16 08:00 08:30 09:00 Temperature 99.0 F Pulse Rate 87 78 81 Pulse Rate [ From Monitor] Respiratory 13 19 23 Rate Blood Pressure 115/76 115/76 121/81 O2 Sat by Pulse 98 99 98 Oximetry 10/28/16 10/28/16 09:30 10:00 Temperature Pulse Rate 84 85 Pulse Rate [ From Monitor] Respiratory 24 23 Rate Blood Pressure 121/81 117/76 O2 Sat by Pulse 99 Oximetry Constitutional: no acute distress, lethargic Eyes: non-icteric ENT: oropharynx moist Neck: supple, no lymphadenopathy Effort: normal Ascultation: Bilateral: diminished breath sounds, rales (scant in bases) Cardiovascular: irregular rhythm Gastrointestinal: normoactive bowel sounds, soft, non-tender, non-distended Integumentary: normal Extremities: no cyanosis, pulses normal, no ischemia or petechiae, edema Neurologic: non-focal exam (grossly), pupils equal and round, unable to assess Psychiatric: other (unable to assess) CBC and BMP: 10/28/16 05:45 10/28/16 05:45 ABG, PT/INR, D-dimer: ABG POC ABG pH 7.476 (7.35-7.45) H 10/23/16 04:47 POC ABG pCO2 37.4 (35-45) 10/23/16 04:47 POC ABG pO2 108 (80-105) H 10/23/16 04:47 POC ABG HCO3 27.6 10/23/16 04:47 POC ABG Total CO2 29 10/23/16 04:47 POC ABG O2 Sat 99 10/23/16 04:47 PT/INR, D-dimer PT 23.0 Sec. (12.2-14.9) H 10/27/16 08:14 INR 2.03 (0.87-1.13) H 10/27/16 08:14 Abnormal lab findings: Abnormal Labs 10/13/16 10/13/16 10/13/16 14:50 21:40 22:05 WBC RBC Hgb Hct MCV MCHC RDW Plt Count Seg Neuts % (Manual) Lymphocytes % (Manual) Nucleated RBC % Seg Neutrophils # Man Lymphocytes # (Manual) Haptoglobin PT INR Fibrinogen Lupus Anticoagulant LA PTT Baseline POC ABG pH POC ABG pCO2 POC ABG pO2 Sodium Potassium Chloride Carbon Dioxide BUN Creatinine Glucose POC Glucose 52 L 43 L Lactic Acid Uric Acid Calcium Phosphorus Iron TIBC Erythropoietin Ferritin Total Bilirubin Direct Bilirubin AST ALT Alkaline Phosphatase Lactate Dehydrogenase C-Reactive Protein Serum Total Protein 5.6 L Total Protein Albumin 2.2 L Wmewi-1-Czwpdooqq 0.5 H Abnorm Protein Band 1 1.4 H PEP Interpretation see below H Crossmatch 10/13/16 10/14/16 10/14/16 23:18 03:00 03:00 WBC RBC Hgb Hct MCV MCHC RDW Plt Count Seg Neuts % (Manual) Lymphocytes % (Manual) Nucleated RBC % Seg Neutrophils # Man Lymphocytes # (Manual) Haptoglobin PT INR Fibrinogen Lupus Anticoagulant see below H LA PTT Baseline 55 H POC ABG pH POC ABG pCO2 POC ABG pO2 Sodium Potassium Chloride Carbon Dioxide BUN Creatinine Glucose POC Glucose 113 H Lactic Acid Uric Acid Calcium Phosphorus Iron TIBC Erythropoietin Ferritin Total Bilirubin Direct Bilirubin AST ALT Alkaline Phosphatase Lactate Dehydrogenase 406 H C-Reactive Protein Serum Total Protein Total Protein Albumin Snpod-4-Njtqitqlm Abnorm Protein Band 1 PEP Interpretation Crossmatch 10/14/16 10/14/16 10/14/16 03:00 03:00 04:34 WBC 1.3 L* RBC 2.33 L Hgb 7.3 L Hct 21.7 L MCV MCHC RDW 19.8 H Plt Count 99 L Seg Neuts % (Manual) Lymphocytes % (Manual) 3.0 L Nucleated RBC % Seg Neutrophils # Man 0.9 L Lymphocytes # (Manual) 0.0 L Haptoglobin PT INR Fibrinogen Lupus Anticoagulant LA PTT Baseline POC ABG pH POC ABG pCO2 POC ABG pO2 Sodium Potassium Chloride Carbon Dioxide 18 L BUN 73 H Creatinine 9.8 H Glucose 59 L POC Glucose Lactic Acid Uric Acid 8.0 H Calcium 8.2 L Phosphorus 6.60 H Iron 13 L TIBC 160 L Erythropoietin Ferritin Total Bilirubin Direct Bilirubin AST ALT Alkaline Phosphatase Lactate Dehydrogenase C-Reactive Protein Serum Total Protein Total Protein Albumin Cssnj-4-Yqspwqpsr Abnorm Protein Band 1 PEP Interpretation Crossmatch 10/14/16 10/14/16 10/14/16 05:27 06:29 07:34 WBC RBC Hgb Hct MCV MCHC RDW Plt Count Seg Neuts % (Manual) Lymphocytes % (Manual) Nucleated RBC % Seg Neutrophils # Man Lymphocytes # (Manual) Haptoglobin PT INR Fibrinogen Lupus Anticoagulant LA PTT Baseline POC ABG pH POC ABG pCO2 POC ABG pO2 Sodium Potassium Chloride Carbon Dioxide BUN Creatinine Glucose POC Glucose < 40 L 63 L < 40 L Lactic Acid Uric Acid Calcium Phosphorus Iron TIBC Erythropoietin Ferritin Total Bilirubin Direct Bilirubin AST ALT Alkaline Phosphatase Lactate Dehydrogenase C-Reactive Protein Serum Total Protein Total Protein Albumin Cledg-6-Skrxokgoh Abnorm Protein Band 1 PEP Interpretation Crossmatch 10/14/16 10/14/16 10/14/16 09:58 09:58 09:58 WBC RBC Hgb Hct MCV MCHC RDW Plt Count Seg Neuts % (Manual) Lymphocytes % (Manual) Nucleated RBC % Seg Neutrophils # Man Lymphocytes # (Manual) Haptoglobin 218 H PT INR Fibrinogen 557 H Lupus Anticoagulant LA PTT Baseline POC ABG pH POC ABG pCO2 POC ABG pO2 Sodium Potassium Chloride Carbon Dioxide BUN Creatinine Glucose POC Glucose Lactic Acid Uric Acid Calcium Phosphorus Iron TIBC Erythropoietin Ferritin Total Bilirubin 1.30 H Direct Bilirubin 1.1 H AST ALT Alkaline Phosphatase Lactate Dehydrogenase C-Reactive Protein Serum Total Protein Total Protein Albumin Jwtgk-8-Vqisqkrct Abnorm Protein Band 1 PEP Interpretation Crossmatch 10/14/16 10/14/16 10/14/16 10:57 11:15 12:52 WBC RBC Hgb Hct MCV MCHC RDW Plt Count Seg Neuts % (Manual) Lymphocytes % (Manual) Nucleated RBC % Seg Neutrophils # Man Lymphocytes # (Manual) Haptoglobin PT INR Fibrinogen Lupus Anticoagulant LA PTT Baseline POC ABG pH POC ABG pCO2 POC ABG pO2 Sodium Potassium Chloride Carbon Dioxide BUN Creatinine Glucose POC Glucose < 40 L < 40 L Lactic Acid 9.60 H* Uric Acid Calcium Phosphorus Iron TIBC Erythropoietin Ferritin Total Bilirubin Direct Bilirubin AST ALT Alkaline Phosphatase Lactate Dehydrogenase C-Reactive Protein Serum Total Protein Total Protein Albumin Pponq-2-Dmggjpexz Abnorm Protein Band 1 PEP Interpretation Crossmatch 10/14/16 10/14/16 10/14/16 12:52 13:17 14:12 WBC RBC Hgb Hct MCV MCHC RDW Plt Count Seg Neuts % (Manual) Lymphocytes % (Manual) Nucleated RBC % Seg Neutrophils # Man Lymphocytes # (Manual) Haptoglobin PT INR Fibrinogen Lupus Anticoagulant LA PTT Baseline POC ABG pH POC ABG pCO2 POC ABG pO2 Sodium Potassium Chloride Carbon Dioxide BUN Creatinine Glucose POC Glucose < 40 L < 40 L Lactic Acid Uric Acid Calcium Phosphorus Iron TIBC Erythropoietin Ferritin Total Bilirubin Direct Bilirubin AST ALT Alkaline Phosphatase Lactate Dehydrogenase C-Reactive Protein 40.40 H Serum Total Protein Total Protein Albumin Zpkxs-0-Wwvfzrszk Abnorm Protein Band 1 PEP Interpretation Crossmatch 10/14/16 10/14/16 10/14/16 15:02 15:33 15:33 WBC RBC Hgb Hct MCV MCHC RDW Plt Count Seg Neuts % (Manual) Lymphocytes % (Manual) Nucleated RBC % Seg Neutrophils # Man Lymphocytes # (Manual) Haptoglobin PT INR Fibrinogen Lupus Anticoagulant LA PTT Baseline POC ABG pH POC ABG pCO2 POC ABG pO2 Sodium Potassium Chloride Carbon Dioxide BUN Creatinine Glucose 19 L* POC Glucose < 40 L Lactic Acid 11.60 H* Uric Acid Calcium Phosphorus Iron TIBC Erythropoietin Ferritin Total Bilirubin Direct Bilirubin AST ALT Alkaline Phosphatase Lactate Dehydrogenase C-Reactive Protein Serum Total Protein Total Protein Albumin Tkjyw-2-Hovoepbhe Abnorm Protein Band 1 PEP Interpretation Crossmatch 10/14/16 10/14/16 10/14/16 17:14 18:03 21:25 WBC RBC Hgb Hct MCV MCHC RDW Plt Count Seg Neuts % (Manual) Lymphocytes % (Manual) Nucleated RBC % Seg Neutrophils # Man Lymphocytes # (Manual) Haptoglobin PT 28.9 H INR 2.71 H Fibrinogen Lupus Anticoagulant LA PTT Baseline POC ABG pH POC ABG pCO2 POC ABG pO2 Sodium Potassium Chloride Carbon Dioxide BUN Creatinine Glucose POC Glucose < 40 L 57 L Lactic Acid Uric Acid Calcium Phosphorus Iron TIBC Erythropoietin Ferritin Total Bilirubin Direct Bilirubin AST ALT Alkaline Phosphatase Lactate Dehydrogenase C-Reactive Protein Serum Total Protein Total Protein Albumin Krsbc-9-Eoxzwnuqh Abnorm Protein Band 1 PEP Interpretation Crossmatch 10/15/16 10/15/16 10/15/16 05:32 05:35 05:35 WBC RBC 2.62 L Hgb 8.1 L Hct 25.8 L MCV 98 H D MCHC 31 L RDW 21.2 H Plt Count 61 L Seg Neuts % (Manual) 27.0 L Lymphocytes % (Manual) 10.0 L Nucleated RBC % 2.0 H Seg Neutrophils # Man Lymphocytes # (Manual) 0.8 L Haptoglobin PT INR Fibrinogen Lupus Anticoagulant LA PTT Baseline POC ABG pH POC ABG pCO2 POC ABG pO2 Sodium Potassium Chloride Carbon Dioxide BUN Creatinine Glucose POC Glucose < 40 L Lactic Acid Uric Acid Calcium Phosphorus Iron TIBC Erythropoietin Ferritin Total Bilirubin Direct Bilirubin AST ALT Alkaline Phosphatase Lactate Dehydrogenase 3871 H C-Reactive Protein Serum Total Protein Total Protein Albumin Luqbd-6-Urnregcce Abnorm Protein Band 1 PEP Interpretation Crossmatch 10/15/16 10/15/16 10/15/16 05:35 05:35 05:35 WBC RBC Hgb Hct MCV MCHC RDW Plt Count Seg Neuts % (Manual) Lymphocytes % (Manual) Nucleated RBC % Seg Neutrophils # Man Lymphocytes # (Manual) Haptoglobin PT INR Fibrinogen Lupus Anticoagulant LA PTT Baseline POC ABG pH POC ABG pCO2 POC ABG pO2 Sodium 136 L Potassium 5.3 H D Chloride 91.4 L Carbon Dioxide 6 L* D BUN 57 H Creatinine 7.1 H Glucose 11 L* POC Glucose Lactic Acid 13.60 H* Uric Acid Calcium 7.7 L Phosphorus 10.10 H D Iron TIBC 166 L Erythropoietin Ferritin 9562.0 H Total Bilirubin Direct Bilirubin AST ALT Alkaline Phosphatase Lactate Dehydrogenase C-Reactive Protein Serum Total Protein Total Protein Albumin Wakzu-1-Grkbihluy Abnorm Protein Band 1 PEP Interpretation Crossmatch 10/15/16 10/15/16 10/15/16 05:51 06:22 06:52 WBC RBC Hgb Hct MCV MCHC RDW Plt Count Seg Neuts % (Manual) Lymphocytes % (Manual) Nucleated RBC % Seg Neutrophils # Man Lymphocytes # (Manual) Haptoglobin PT INR Fibrinogen Lupus Anticoagulant LA PTT Baseline POC ABG pH 7.189 L POC ABG pCO2 28.9 L POC ABG pO2 Sodium Potassium Chloride Carbon Dioxide BUN Creatinine Glucose POC Glucose 59 L 111 H Lactic Acid Uric Acid Calcium Phosphorus Iron TIBC Erythropoietin Ferritin Total Bilirubin Direct Bilirubin AST ALT Alkaline Phosphatase Lactate Dehydrogenase C-Reactive Protein Serum Total Protein Total Protein Albumin Rfqwd-5-Brrgjclgs Abnorm Protein Band 1 PEP Interpretation Crossmatch 10/15/16 10/15/16 10/15/16 08:00 09:57 11:42 WBC RBC Hgb Hct MCV MCHC RDW Plt Count Seg Neuts % (Manual) Lymphocytes % (Manual) Nucleated RBC % Seg Neutrophils # Man Lymphocytes # (Manual) Haptoglobin PT INR Fibrinogen Lupus Anticoagulant LA PTT Baseline POC ABG pH POC ABG pCO2 POC ABG pO2 Sodium Potassium Chloride Carbon Dioxide BUN Creatinine Glucose POC Glucose 63 L 143 H 203 H Lactic Acid Uric Acid Calcium Phosphorus Iron TIBC Erythropoietin Ferritin Total Bilirubin Direct Bilirubin AST ALT Alkaline Phosphatase Lactate Dehydrogenase C-Reactive Protein Serum Total Protein Total Protein Albumin Vejmr-1-Jvsfwyogw Abnorm Protein Band 1 PEP Interpretation Crossmatch 10/15/16 10/15/16 10/15/16 12:00 12:00 13:00 WBC RBC Hgb Hct MCV MCHC RDW Plt Count Seg Neuts % (Manual) Lymphocytes % (Manual) Nucleated RBC % Seg Neutrophils # Man Lymphocytes # (Manual) Haptoglobin <15 L PT INR Fibrinogen Lupus Anticoagulant LA PTT Baseline POC ABG pH POC ABG pCO2 POC ABG pO2 Sodium Potassium Chloride Carbon Dioxide BUN Creatinine Glucose POC Glucose 136 H Lactic Acid 16.30 H* Uric Acid Calcium Phosphorus Iron TIBC Erythropoietin Ferritin Total Bilirubin Direct Bilirubin AST ALT Alkaline Phosphatase Lactate Dehydrogenase C-Reactive Protein Serum Total Protein Total Protein Albumin Ivopi-5-Ywnquldpn Abnorm Protein Band 1 PEP Interpretation Crossmatch 10/15/16 10/15/16 10/15/16 14:06 15:15 16:23 WBC RBC Hgb Hct MCV MCHC RDW Plt Count Seg Neuts % (Manual) Lymphocytes % (Manual) Nucleated RBC % Seg Neutrophils # Man Lymphocytes # (Manual) Haptoglobin PT INR Fibrinogen Lupus Anticoagulant LA PTT Baseline POC ABG pH POC ABG pCO2 POC ABG pO2 Sodium Potassium Chloride Carbon Dioxide BUN Creatinine Glucose POC Glucose 132 H 64 L Lactic Acid 20.40 H* Uric Acid Calcium Phosphorus Iron TIBC Erythropoietin Ferritin Total Bilirubin Direct Bilirubin AST ALT Alkaline Phosphatase Lactate Dehydrogenase C-Reactive Protein Serum Total Protein Total Protein Albumin Gacye-8-Kjnpfapec Abnorm Protein Band 1 PEP Interpretation Crossmatch 10/15/16 10/15/16 10/15/16 16:40 17:00 17:10 WBC RBC Hgb Hct MCV MCHC RDW Plt Count Seg Neuts % (Manual) Lymphocytes % (Manual) Nucleated RBC % Seg Neutrophils # Man Lymphocytes # (Manual) Haptoglobin PT INR Fibrinogen Lupus Anticoagulant LA PTT Baseline POC ABG pH 7.323 L POC ABG pCO2 25.8 L POC ABG pO2 135 H Sodium Potassium Chloride Carbon Dioxide BUN Creatinine Glucose POC Glucose 159 H Lactic Acid 20.20 H* Uric Acid Calcium Phosphorus Iron TIBC Erythropoietin Ferritin Total Bilirubin Direct Bilirubin AST ALT Alkaline Phosphatase Lactate Dehydrogenase C-Reactive Protein Serum Total Protein Total Protein Albumin Jvhom-2-Cvupbwxvf Abnorm Protein Band 1 PEP Interpretation Crossmatch 10/15/16 10/15/16 10/15/16 17:46 17:53 18:45 WBC RBC Hgb Hct MCV MCHC RDW Plt Count Seg Neuts % (Manual) Lymphocytes % (Manual) Nucleated RBC % Seg Neutrophils # Man Lymphocytes # (Manual) Haptoglobin PT INR Fibrinogen Lupus Anticoagulant LA PTT Baseline POC ABG pH POC ABG pCO2 POC ABG pO2 Sodium Potassium Chloride Carbon Dioxide BUN Creatinine Glucose POC Glucose 126 H 143 H Lactic Acid 21.40 H* Uric Acid Calcium Phosphorus Iron TIBC Erythropoietin Ferritin Total Bilirubin Direct Bilirubin AST ALT Alkaline Phosphatase Lactate Dehydrogenase C-Reactive Protein Serum Total Protein Total Protein Albumin Kfkyl-6-Rdxthuaen Abnorm Protein Band 1 PEP Interpretation Crossmatch 10/15/16 10/15/16 10/16/16 20:03 22:59 00:06 WBC RBC Hgb Hct MCV MCHC RDW Plt Count Seg Neuts % (Manual) Lymphocytes % (Manual) Nucleated RBC % Seg Neutrophils # Man Lymphocytes # (Manual) Haptoglobin PT INR Fibrinogen Lupus Anticoagulant LA PTT Baseline POC ABG pH POC ABG pCO2 POC ABG pO2 Sodium Potassium Chloride Carbon Dioxide BUN Creatinine Glucose POC Glucose 66 L 53 L 126 H Lactic Acid Uric Acid Calcium Phosphorus Iron TIBC Erythropoietin Ferritin Total Bilirubin Direct Bilirubin AST ALT Alkaline Phosphatase Lactate Dehydrogenase C-Reactive Protein Serum Total Protein Total Protein Albumin Ubgep-0-Qeriqwntt Abnorm Protein Band 1 PEP Interpretation Crossmatch 10/16/16 10/16/16 10/16/16 01:03 03:55 04:00 WBC RBC Hgb Hct MCV MCHC RDW Plt Count Seg Neuts % (Manual) Lymphocytes % (Manual) Nucleated RBC % Seg Neutrophils # Man Lymphocytes # (Manual) Haptoglobin PT INR Fibrinogen Lupus Anticoagulant LA PTT Baseline POC ABG pH POC ABG pCO2 POC ABG pO2 Sodium Potassium Chloride Carbon Dioxide BUN Creatinine Glucose POC Glucose 107 H 260 H Lactic Acid 18.00 H* Uric Acid Calcium Phosphorus Iron TIBC Erythropoietin Ferritin Total Bilirubin Direct Bilirubin AST ALT Alkaline Phosphatase Lactate Dehydrogenase C-Reactive Protein Serum Total Protein Total Protein Albumin Nnamt-1-Lhelmmrvd Abnorm Protein Band 1 PEP Interpretation Crossmatch 10/16/16 10/16/16 10/16/16 04:03 07:58 08:34 WBC RBC Hgb Hct MCV MCHC RDW Plt Count Seg Neuts % (Manual) Lymphocytes % (Manual) Nucleated RBC % Seg Neutrophils # Man Lymphocytes # (Manual) Haptoglobin PT INR Fibrinogen Lupus Anticoagulant LA PTT Baseline POC ABG pH 7.527 H POC ABG pCO2 32.9 L POC ABG pO2 119 H Sodium Potassium Chloride Carbon Dioxide BUN Creatinine Glucose POC Glucose 120 H 66 L Lactic Acid Uric Acid Calcium Phosphorus Iron TIBC Erythropoietin Ferritin Total Bilirubin Direct Bilirubin AST ALT Alkaline Phosphatase Lactate Dehydrogenase C-Reactive Protein Serum Total Protein Total Protein Albumin Meisr-3-Hhgtcrvvz Abnorm Protein Band 1 PEP Interpretation Crossmatch 10/16/16 10/16/16 10/16/16 09:13 10:06 10:57 WBC RBC Hgb Hct MCV MCHC RDW Plt Count Seg Neuts % (Manual) Lymphocytes % (Manual) Nucleated RBC % Seg Neutrophils # Man Lymphocytes # (Manual) Haptoglobin PT INR Fibrinogen Lupus Anticoagulant LA PTT Baseline POC ABG pH POC ABG pCO2 POC ABG pO2 Sodium Potassium Chloride Carbon Dioxide BUN Creatinine Glucose POC Glucose 147 H 137 H 140 H Lactic Acid Uric Acid Calcium Phosphorus Iron TIBC Erythropoietin Ferritin Total Bilirubin Direct Bilirubin AST ALT Alkaline Phosphatase Lactate Dehydrogenase C-Reactive Protein Serum Total Protein Total Protein Albumin Iasgs-4-Pueoncogq Abnorm Protein Band 1 PEP Interpretation Crossmatch 10/16/16 10/16/16 10/16/16 11:15 11:15 11:15 WBC 25.8 H RBC 2.30 L Hgb 7.0 L Hct 22.3 L MCV 97 H MCHC 31 L RDW 21.2 H Plt Count 42 L Seg Neuts % (Manual) Lymphocytes % (Manual) 3.0 L Nucleated RBC % 2.0 H Seg Neutrophils # Man 11.1 H Lymphocytes # (Manual) 0.8 L Haptoglobin PT INR Fibrinogen Lupus Anticoagulant LA PTT Baseline POC ABG pH POC ABG pCO2 POC ABG pO2 Sodium Potassium Chloride 81.7 L Carbon Dioxide 13 L D BUN 61 H Creatinine 6.2 H Glucose 171 H POC Glucose Lactic Acid 22.70 H* Uric Acid Calcium 7.1 L Phosphorus 9.10 H Iron TIBC Erythropoietin Ferritin Total Bilirubin Direct Bilirubin AST ALT Alkaline Phosphatase Lactate Dehydrogenase C-Reactive Protein Serum Total Protein Total Protein Albumin Hwagz-8-Uksyoigrp Abnorm Protein Band 1 PEP Interpretation Crossmatch 10/16/16 10/16/16 10/16/16 15:10 15:50 18:11 WBC RBC Hgb Hct MCV MCHC RDW Plt Count Seg Neuts % (Manual) Lymphocytes % (Manual) Nucleated RBC % Seg Neutrophils # Man Lymphocytes # (Manual) Haptoglobin PT INR Fibrinogen Lupus Anticoagulant LA PTT Baseline POC ABG pH POC ABG pCO2 POC ABG pO2 Sodium Potassium Chloride Carbon Dioxide BUN Creatinine Glucose POC Glucose 47 L 164 H 58 L Lactic Acid Uric Acid Calcium Phosphorus Iron TIBC Erythropoietin Ferritin Total Bilirubin Direct Bilirubin AST ALT Alkaline Phosphatase Lactate Dehydrogenase C-Reactive Protein Serum Total Protein Total Protein Albumin Lrfcu-0-Pjterxbfb Abnorm Protein Band 1 PEP Interpretation Crossmatch 10/16/16 10/16/16 10/17/16 18:26 21:06 00:06 WBC RBC Hgb Hct MCV MCHC RDW Plt Count Seg Neuts % (Manual) Lymphocytes % (Manual) Nucleated RBC % Seg Neutrophils # Man Lymphocytes # (Manual) Haptoglobin PT INR Fibrinogen Lupus Anticoagulant LA PTT Baseline POC ABG pH POC ABG pCO2 POC ABG pO2 489 H Sodium Potassium Chloride Carbon Dioxide BUN Creatinine Glucose POC Glucose 52 L 120 H Lactic Acid Uric Acid Calcium Phosphorus Iron TIBC Erythropoietin Ferritin Total Bilirubin Direct Bilirubin AST ALT Alkaline Phosphatase Lactate Dehydrogenase C-Reactive Protein Serum Total Protein Total Protein Albumin Ahsts-0-Ecwevjqlr Abnorm Protein Band 1 PEP Interpretation Crossmatch 10/17/16 10/17/16 10/17/16 04:55 04:55 05:04 WBC 25.5 H RBC 2.23 L Hgb 6.6 L Hct 21.2 L MCV 95 H MCHC 31 L RDW 20.5 H Plt Count 35 L Seg Neuts % (Manual) 79.0 H Lymphocytes % (Manual) 0 L Nucleated RBC % Seg Neutrophils # Man 20.1 H Lymphocytes # (Manual) 0.0 L Haptoglobin PT INR Fibrinogen Lupus Anticoagulant LA PTT Baseline POC ABG pH POC ABG pCO2 27.2 L POC ABG pO2 162 H Sodium Potassium Chloride 91.5 L Carbon Dioxide 16 L BUN 45 H Creatinine 4.5 H Glucose 103 H POC Glucose Lactic Acid Uric Acid Calcium 6.9 L Phosphorus 5.80 H D Iron TIBC Erythropoietin Ferritin Total Bilirubin Direct Bilirubin AST ALT Alkaline Phosphatase Lactate Dehydrogenase C-Reactive Protein Serum Total Protein Total Protein Albumin Wsymf-7-Vpwfybzgv Abnorm Protein Band 1 PEP Interpretation Crossmatch 10/17/16 10/17/16 10/17/16 07:59 09:04 10:04 WBC RBC Hgb Hct MCV MCHC RDW Plt Count Seg Neuts % (Manual) Lymphocytes % (Manual) Nucleated RBC % Seg Neutrophils # Man Lymphocytes # (Manual) Haptoglobin PT INR Fibrinogen Lupus Anticoagulant LA PTT Baseline POC ABG pH POC ABG pCO2 POC ABG pO2 Sodium Potassium Chloride Carbon Dioxide BUN Creatinine Glucose POC Glucose 65 L 118 H Lactic Acid Uric Acid Calcium Phosphorus Iron TIBC Erythropoietin Ferritin Total Bilirubin Direct Bilirubin AST ALT Alkaline Phosphatase Lactate Dehydrogenase C-Reactive Protein Serum Total Protein Total Protein Albumin Ymssm-0-Qjvlhmail Abnorm Protein Band 1 PEP Interpretation Crossmatch See Detail 10/17/16 10/17/16 10/17/16 11:52 13:08 15:42 WBC RBC Hgb Hct MCV MCHC RDW Plt Count Seg Neuts % (Manual) Lymphocytes % (Manual) Nucleated RBC % Seg Neutrophils # Man Lymphocytes # (Manual) Haptoglobin PT INR Fibrinogen Lupus Anticoagulant LA PTT Baseline POC ABG pH POC ABG pCO2 POC ABG pO2 Sodium Potassium Chloride Carbon Dioxide BUN Creatinine Glucose POC Glucose 125 H 106 H 55 L Lactic Acid Uric Acid Calcium Phosphorus Iron TIBC Erythropoietin Ferritin Total Bilirubin Direct Bilirubin AST ALT Alkaline Phosphatase Lactate Dehydrogenase C-Reactive Protein Serum Total Protein Total Protein Albumin Khprn-8-Bnxjapsmb Abnorm Protein Band 1 PEP Interpretation Crossmatch 10/17/16 10/17/16 10/17/16 17:39 20:37 21:02 WBC RBC Hgb Hct MCV MCHC RDW Plt Count Seg Neuts % (Manual) Lymphocytes % (Manual) Nucleated RBC % Seg Neutrophils # Man Lymphocytes # (Manual) Haptoglobin PT INR Fibrinogen Lupus Anticoagulant LA PTT Baseline POC ABG pH POC ABG pCO2 28.2 L POC ABG pO2 Sodium Potassium Chloride Carbon Dioxide BUN Creatinine Glucose POC Glucose < 40 L 106 H Lactic Acid Uric Acid Calcium Phosphorus Iron TIBC Erythropoietin Ferritin Total Bilirubin Direct Bilirubin AST ALT Alkaline Phosphatase Lactate Dehydrogenase C-Reactive Protein Serum Total Protein Total Protein Albumin Gkgil-0-Gnzqwdabc Abnorm Protein Band 1 PEP Interpretation Crossmatch 10/17/16 10/17/16 10/18/16 22:18 23:14 00:28 WBC RBC Hgb Hct MCV MCHC RDW Plt Count Seg Neuts % (Manual) Lymphocytes % (Manual) Nucleated RBC % Seg Neutrophils # Man Lymphocytes # (Manual) Haptoglobin PT INR Fibrinogen Lupus Anticoagulant LA PTT Baseline POC ABG pH POC ABG pCO2 POC ABG pO2 Sodium Potassium Chloride Carbon Dioxide BUN Creatinine Glucose POC Glucose 111 H 118 H 112 H Lactic Acid Uric Acid Calcium Phosphorus Iron TIBC Erythropoietin Ferritin Total Bilirubin Direct Bilirubin AST ALT Alkaline Phosphatase Lactate Dehydrogenase C-Reactive Protein Serum Total Protein Total Protein Albumin Vwfqo-0-Npnrilioq Abnorm Protein Band 1 PEP Interpretation Crossmatch 10/18/16 10/18/16 10/18/16 05:00 05:00 05:15 WBC 27.3 H RBC 2.75 L Hgb 7.9 L Hct 25.3 L MCV MCHC 31 L RDW 20.7 H Plt Count 31 L Seg Neuts % (Manual) 87.0 H Lymphocytes % (Manual) 1.0 L Nucleated RBC % 1.0 H Seg Neutrophils # Man 23.8 H Lymphocytes # (Manual) 0.3 L Haptoglobin PT INR Fibrinogen Lupus Anticoagulant LA PTT Baseline POC ABG pH 7.466 H POC ABG pCO2 25.1 L POC ABG pO2 Sodium Potassium Chloride 88.7 L Carbon Dioxide 18 L BUN 66 H Creatinine 4.7 H Glucose POC Glucose Lactic Acid Uric Acid Calcium 6.1 L Phosphorus 7.30 H D Iron TIBC Erythropoietin Ferritin Total Bilirubin Direct Bilirubin AST ALT Alkaline Phosphatase Lactate Dehydrogenase C-Reactive Protein Serum Total Protein Total Protein Albumin Vkeim-5-Shmarygxu Abnorm Protein Band 1 PEP Interpretation Crossmatch 10/18/16 10/18/16 10/18/16 07:15 07:44 09:07 WBC RBC Hgb Hct MCV MCHC RDW Plt Count Seg Neuts % (Manual) Lymphocytes % (Manual) Nucleated RBC % Seg Neutrophils # Man Lymphocytes # (Manual) Haptoglobin PT INR Fibrinogen Lupus Anticoagulant LA PTT Baseline POC ABG pH POC ABG pCO2 POC ABG pO2 Sodium Potassium Chloride Carbon Dioxide BUN Creatinine Glucose POC Glucose 64 L 156 H 117 H Lactic Acid Uric Acid Calcium Phosphorus Iron TIBC Erythropoietin Ferritin Total Bilirubin Direct Bilirubin AST ALT Alkaline Phosphatase Lactate Dehydrogenase C-Reactive Protein Serum Total Protein Total Protein Albumin Derwy-1-Hnsrxpghk Abnorm Protein Band 1 PEP Interpretation Crossmatch 10/18/16 10/18/16 10/18/16 09:15 14:00 18:21 WBC RBC Hgb Hct MCV MCHC RDW Plt Count Seg Neuts % (Manual) Lymphocytes % (Manual) Nucleated RBC % Seg Neutrophils # Man Lymphocytes # (Manual) Haptoglobin PT INR Fibrinogen Lupus Anticoagulant LA PTT Baseline POC ABG pH POC ABG pCO2 POC ABG pO2 Sodium Potassium Chloride Carbon Dioxide BUN Creatinine Glucose POC Glucose 106 H 112 H Lactic Acid 14.30 H* Uric Acid Calcium Phosphorus Iron TIBC Erythropoietin Ferritin Total Bilirubin Direct Bilirubin AST ALT Alkaline Phosphatase Lactate Dehydrogenase C-Reactive Protein Serum Total Protein Total Protein Albumin Hoxpu-5-Kptfllxyy Abnorm Protein Band 1 PEP Interpretation Crossmatch 10/18/16 10/18/16 10/18/16 19:58 20:55 22:11 WBC RBC Hgb Hct MCV MCHC RDW Plt Count Seg Neuts % (Manual) Lymphocytes % (Manual) Nucleated RBC % Seg Neutrophils # Man Lymphocytes # (Manual) Haptoglobin PT INR Fibrinogen Lupus Anticoagulant LA PTT Baseline POC ABG pH POC ABG pCO2 POC ABG pO2 Sodium Potassium Chloride Carbon Dioxide BUN Creatinine Glucose POC Glucose 127 H 125 H 159 H Lactic Acid Uric Acid Calcium Phosphorus Iron TIBC Erythropoietin Ferritin Total Bilirubin Direct Bilirubin AST ALT Alkaline Phosphatase Lactate Dehydrogenase C-Reactive Protein Serum Total Protein Total Protein Albumin Fzcnw-1-Mdcvkfdjs Abnorm Protein Band 1 PEP Interpretation Crossmatch 10/18/16 10/18/16 10/19/16 23:11 23:57 01:06 WBC RBC Hgb Hct MCV MCHC RDW Plt Count Seg Neuts % (Manual) Lymphocytes % (Manual) Nucleated RBC % Seg Neutrophils # Man Lymphocytes # (Manual) Haptoglobin PT INR Fibrinogen Lupus Anticoagulant LA PTT Baseline POC ABG pH POC ABG pCO2 POC ABG pO2 Sodium Potassium Chloride Carbon Dioxide BUN Creatinine Glucose POC Glucose 122 H 137 H 162 H Lactic Acid Uric Acid Calcium Phosphorus Iron TIBC Erythropoietin Ferritin Total Bilirubin Direct Bilirubin AST ALT Alkaline Phosphatase Lactate Dehydrogenase C-Reactive Protein Serum Total Protein Total Protein Albumin Ezive-8-Lckjetuwl Abnorm Protein Band 1 PEP Interpretation Crossmatch 10/19/16 10/19/16 10/19/16 01:59 03:07 04:10 WBC RBC Hgb Hct MCV MCHC RDW Plt Count Seg Neuts % (Manual) Lymphocytes % (Manual) Nucleated RBC % Seg Neutrophils # Man Lymphocytes # (Manual) Haptoglobin PT INR Fibrinogen Lupus Anticoagulant LA PTT Baseline POC ABG pH POC ABG pCO2 POC ABG pO2 Sodium Potassium Chloride Carbon Dioxide BUN Creatinine Glucose POC Glucose 154 H 178 H 186 H Lactic Acid Uric Acid Calcium Phosphorus Iron TIBC Erythropoietin Ferritin Total Bilirubin Direct Bilirubin AST ALT Alkaline Phosphatase Lactate Dehydrogenase C-Reactive Protein Serum Total Protein Total Protein Albumin Rhupv-3-Zqbbrccvr Abnorm Protein Band 1 PEP Interpretation Crossmatch 10/19/16 10/19/16 10/19/16 05:14 05:15 05:47 WBC RBC Hgb Hct MCV MCHC RDW Plt Count Seg Neuts % (Manual) Lymphocytes % (Manual) Nucleated RBC % Seg Neutrophils # Man Lymphocytes # (Manual) Haptoglobin PT INR Fibrinogen Lupus Anticoagulant LA PTT Baseline POC ABG pH 7.581 H POC ABG pCO2 22.9 L POC ABG pO2 58 L Sodium Potassium Chloride Carbon Dioxide BUN Creatinine Glucose POC Glucose 197 H 204 H Lactic Acid Uric Acid Calcium Phosphorus Iron TIBC Erythropoietin Ferritin Total Bilirubin Direct Bilirubin AST ALT Alkaline Phosphatase Lactate Dehydrogenase C-Reactive Protein Serum Total Protein Total Protein Albumin Lflgm-3-Gtgelvxwn Abnorm Protein Band 1 PEP Interpretation Crossmatch 10/19/16 10/19/16 10/19/16 06:00 06:00 07:51 WBC 23.0 H RBC 2.54 L Hgb 7.5 L Hct 23.0 L MCV MCHC RDW 20.7 H Plt Count 25 L Seg Neuts % (Manual) 91.0 H Lymphocytes % (Manual) 2.0 L Nucleated RBC % 1.0 H Seg Neutrophils # Man 20.9 H Lymphocytes # (Manual) 0.5 L Haptoglobin PT INR Fibrinogen Lupus Anticoagulant LA PTT Baseline POC ABG pH POC ABG pCO2 POC ABG pO2 Sodium Potassium Chloride 88.7 L Carbon Dioxide 21 L BUN 70 H Creatinine 3.9 H Glucose 189 H POC Glucose 145 H Lactic Acid Uric Acid Calcium 5.6 L* Phosphorus 6.30 H Iron TIBC Erythropoietin Ferritin Total Bilirubin Direct Bilirubin AST ALT Alkaline Phosphatase Lactate Dehydrogenase C-Reactive Protein Serum Total Protein Total Protein Albumin Xozhp-4-Vjvadqqcm Abnorm Protein Band 1 PEP Interpretation Crossmatch 10/19/16 10/19/16 10/19/16 09:14 10:01 12:14 WBC RBC Hgb Hct MCV MCHC RDW Plt Count Seg Neuts % (Manual) Lymphocytes % (Manual) Nucleated RBC % Seg Neutrophils # Man Lymphocytes # (Manual) Haptoglobin PT INR Fibrinogen Lupus Anticoagulant LA PTT Baseline POC ABG pH POC ABG pCO2 POC ABG pO2 Sodium Potassium Chloride Carbon Dioxide BUN Creatinine Glucose POC Glucose 173 H 153 H 180 H Lactic Acid Uric Acid Calcium Phosphorus Iron TIBC Erythropoietin Ferritin Total Bilirubin Direct Bilirubin AST ALT Alkaline Phosphatase Lactate Dehydrogenase C-Reactive Protein Serum Total Protein Total Protein Albumin Ctuwy-5-Qobaqcfux Abnorm Protein Band 1 PEP Interpretation Crossmatch 10/19/16 10/19/16 10/19/16 14:15 16:38 20:27 WBC RBC Hgb Hct MCV MCHC RDW Plt Count Seg Neuts % (Manual) Lymphocytes % (Manual) Nucleated RBC % Seg Neutrophils # Man Lymphocytes # (Manual) Haptoglobin PT INR Fibrinogen Lupus Anticoagulant LA PTT Baseline POC ABG pH POC ABG pCO2 POC ABG pO2 Sodium Potassium Chloride Carbon Dioxide BUN Creatinine Glucose POC Glucose 194 H 202 H Lactic Acid Uric Acid Calcium Phosphorus Iron TIBC Erythropoietin 148.2 H Ferritin Total Bilirubin Direct Bilirubin AST ALT Alkaline Phosphatase Lactate Dehydrogenase C-Reactive Protein Serum Total Protein Total Protein Albumin Zkucg-5-Pdqrixdqc Abnorm Protein Band 1 PEP Interpretation Crossmatch 10/19/16 10/20/16 10/20/16 23:27 04:06 05:00 WBC RBC Hgb Hct MCV MCHC RDW Plt Count Seg Neuts % (Manual) Lymphocytes % (Manual) Nucleated RBC % Seg Neutrophils # Man Lymphocytes # (Manual) Haptoglobin PT INR Fibrinogen Lupus Anticoagulant LA PTT Baseline POC ABG pH POC ABG pCO2 POC ABG pO2 Sodium Potassium Chloride 88.8 L Carbon Dioxide BUN 93 H Creatinine 4.3 H Glucose 204 H POC Glucose 201 H 200 H Lactic Acid Uric Acid Calcium 5.2 L* Phosphorus Iron TIBC Erythropoietin Ferritin Total Bilirubin Direct Bilirubin AST ALT Alkaline Phosphatase Lactate Dehydrogenase C-Reactive Protein Serum Total Protein Total Protein Albumin Izbax-1-Tdnzixmlh Abnorm Protein Band 1 PEP Interpretation Crossmatch 10/20/16 10/20/16 10/20/16 05:16 06:00 07:43 WBC 24.8 H RBC 2.52 L Hgb 7.4 L Hct 22.9 L MCV MCHC RDW 19.9 H Plt Count 23 L Seg Neuts % (Manual) 97.0 H Lymphocytes % (Manual) 1.0 L Nucleated RBC % 9.0 H Seg Neutrophils # Man 24.1 H Lymphocytes # (Manual) 0.2 L Haptoglobin PT INR Fibrinogen Lupus Anticoagulant LA PTT Baseline POC ABG pH 7.463 H POC ABG pCO2 POC ABG pO2 157 H Sodium Potassium Chloride Carbon Dioxide BUN Creatinine Glucose POC Glucose 192 H Lactic Acid Uric Acid Calcium Phosphorus Iron TIBC Erythropoietin Ferritin Total Bilirubin Direct Bilirubin AST ALT Alkaline Phosphatase Lactate Dehydrogenase C-Reactive Protein Serum Total Protein Total Protein Albumin Hpzrb-7-Aucznyuhd Abnorm Protein Band 1 PEP Interpretation Crossmatch 10/20/16 10/20/16 10/20/16 12:11 15:32 21:23 WBC RBC Hgb Hct MCV MCHC RDW Plt Count Seg Neuts % (Manual) Lymphocytes % (Manual) Nucleated RBC % Seg Neutrophils # Man Lymphocytes # (Manual) Haptoglobin PT INR Fibrinogen Lupus Anticoagulant LA PTT Baseline POC ABG pH POC ABG pCO2 POC ABG pO2 Sodium Potassium Chloride Carbon Dioxide BUN Creatinine Glucose POC Glucose 172 H 216 H 271 H Lactic Acid Uric Acid Calcium Phosphorus Iron TIBC Erythropoietin Ferritin Total Bilirubin Direct Bilirubin AST ALT Alkaline Phosphatase Lactate Dehydrogenase C-Reactive Protein Serum Total Protein Total Protein Albumin Xcbcn-5-Drflinaue Abnorm Protein Band 1 PEP Interpretation Crossmatch 10/20/16 10/21/16 10/21/16 23:49 03:53 04:58 WBC RBC Hgb Hct MCV MCHC RDW Plt Count Seg Neuts % (Manual) Lymphocytes % (Manual) Nucleated RBC % Seg Neutrophils # Man Lymphocytes # (Manual) Haptoglobin PT INR Fibrinogen Lupus Anticoagulant LA PTT Baseline POC ABG pH 7.459 H POC ABG pCO2 POC ABG pO2 113 H Sodium 136 L Potassium 2.8 L* D Chloride 91.6 L Carbon Dioxide BUN 62 H Creatinine 2.8 H Glucose 236 H POC Glucose 317 H Lactic Acid Uric Acid Calcium 6.2 L D Phosphorus Iron TIBC Erythropoietin Ferritin Total Bilirubin 2.70 H Direct Bilirubin AST 73 H ALT 57 H Alkaline Phosphatase 158 H Lactate Dehydrogenase C-Reactive Protein Serum Total Protein Total Protein 4.9 L Albumin 2.6 L Bdsvr-2-Aroydjpup Abnorm Protein Band 1 PEP Interpretation Crossmatch 10/21/16 10/21/16 10/21/16 05:25 07:11 10:30 WBC 28.1 H RBC 2.36 L Hgb 7.0 L Hct 21.6 L MCV MCHC RDW 20.0 H Plt Count 14 L* Seg Neuts % (Manual) 92.0 H Lymphocytes % (Manual) 0 L Nucleated RBC % 5.0 H Seg Neutrophils # Man 25.9 H Lymphocytes # (Manual) 0.0 L Haptoglobin PT INR Fibrinogen Lupus Anticoagulant LA PTT Baseline POC ABG pH POC ABG pCO2 POC ABG pO2 Sodium Potassium Chloride Carbon Dioxide BUN Creatinine Glucose POC Glucose 237 H 206 H Lactic Acid Uric Acid Calcium Phosphorus Iron TIBC Erythropoietin Ferritin Total Bilirubin Direct Bilirubin AST ALT Alkaline Phosphatase Lactate Dehydrogenase C-Reactive Protein Serum Total Protein Total Protein Albumin Rdbko-7-Hmoqzjgav Abnorm Protein Band 1 PEP Interpretation Crossmatch 10/21/16 10/21/16 10/21/16 11:25 12:31 16:33 WBC RBC Hgb Hct MCV MCHC RDW Plt Count Seg Neuts % (Manual) Lymphocytes % (Manual) Nucleated RBC % Seg Neutrophils # Man Lymphocytes # (Manual) Haptoglobin PT 49.1 H INR 5.28 H* Fibrinogen Lupus Anticoagulant LA PTT Baseline POC ABG pH POC ABG pCO2 POC ABG pO2 Sodium Potassium Chloride Carbon Dioxide BUN Creatinine Glucose POC Glucose 145 H 151 H Lactic Acid Uric Acid Calcium Phosphorus Iron TIBC Erythropoietin Ferritin Total Bilirubin Direct Bilirubin AST ALT Alkaline Phosphatase Lactate Dehydrogenase C-Reactive Protein Serum Total Protein Total Protein Albumin Oytbi-4-Hjezlcuhq Abnorm Protein Band 1 PEP Interpretation Crossmatch 10/21/16 10/22/16 10/22/16 19:53 00:00 05:23 WBC RBC Hgb Hct MCV MCHC RDW Plt Count Seg Neuts % (Manual) Lymphocytes % (Manual) Nucleated RBC % Seg Neutrophils # Man Lymphocytes # (Manual) Haptoglobin PT INR Fibrinogen Lupus Anticoagulant LA PTT Baseline POC ABG pH POC ABG pCO2 POC ABG pO2 Sodium Potassium Chloride Carbon Dioxide BUN Creatinine Glucose POC Glucose 170 H 168 H 131 H Lactic Acid Uric Acid Calcium Phosphorus Iron TIBC Erythropoietin Ferritin Total Bilirubin Direct Bilirubin AST ALT Alkaline Phosphatase Lactate Dehydrogenase C-Reactive Protein Serum Total Protein Total Protein Albumin Fyste-8-Jhcxyuqtl Abnorm Protein Band 1 PEP Interpretation Crossmatch 10/22/16 10/22/16 10/22/16 05:25 05:35 13:03 WBC RBC Hgb Hct MCV MCHC RDW Plt Count Seg Neuts % (Manual) Lymphocytes % (Manual) Nucleated RBC % Seg Neutrophils # Man Lymphocytes # (Manual) Haptoglobin PT INR Fibrinogen Lupus Anticoagulant LA PTT Baseline POC ABG pH 7.462 H POC ABG pCO2 POC ABG pO2 Sodium 135 L Potassium 3.0 L Chloride 88.5 L Carbon Dioxide BUN 84 H Creatinine 3.4 H Glucose 124 H POC Glucose 164 H Lactic Acid Uric Acid Calcium 5.9 L* Phosphorus Iron TIBC Erythropoietin Ferritin Total Bilirubin 2.00 H Direct Bilirubin AST 85 H ALT Alkaline Phosphatase 199 H Lactate Dehydrogenase C-Reactive Protein Serum Total Protein Total Protein 5.0 L Albumin 2.5 L Garim-0-Dvvhzloan Abnorm Protein Band 1 PEP Interpretation Crossmatch 10/22/16 10/22/16 10/23/16 17:14 23:16 04:47 WBC RBC Hgb Hct MCV MCHC RDW Plt Count Seg Neuts % (Manual) Lymphocytes % (Manual) Nucleated RBC % Seg Neutrophils # Man Lymphocytes # (Manual) Haptoglobin PT INR Fibrinogen Lupus Anticoagulant LA PTT Baseline POC ABG pH 7.476 H POC ABG pCO2 POC ABG pO2 108 H Sodium Potassium Chloride Carbon Dioxide BUN Creatinine Glucose POC Glucose 188 H 167 H Lactic Acid Uric Acid Calcium Phosphorus Iron TIBC Erythropoietin Ferritin Total Bilirubin Direct Bilirubin AST ALT Alkaline Phosphatase Lactate Dehydrogenase C-Reactive Protein Serum Total Protein Total Protein Albumin Yfhxj-0-Ajivldjnc Abnorm Protein Band 1 PEP Interpretation Crossmatch 10/23/16 10/23/16 10/23/16 05:49 07:00 07:12 WBC 24.2 H RBC 2.27 L Hgb 7.0 L Hct 21.1 L MCV MCHC RDW 19.7 H Plt Count 35 L D Seg Neuts % (Manual) Lymphocytes % (Manual) Nucleated RBC % Seg Neutrophils # Man Lymphocytes # (Manual) Haptoglobin PT INR Fibrinogen Lupus Anticoagulant LA PTT Baseline POC ABG pH POC ABG pCO2 POC ABG pO2 Sodium Potassium 3.5 L Chloride 95.7 L Carbon Dioxide BUN 55 H Creatinine 2.7 H Glucose 103 H POC Glucose 106 H Lactic Acid Uric Acid Calcium 7.1 L D Phosphorus Iron TIBC Erythropoietin Ferritin Total Bilirubin Direct Bilirubin AST ALT Alkaline Phosphatase Lactate Dehydrogenase C-Reactive Protein Serum Total Protein Total Protein Albumin Fqajd-5-Ozwejzqdr Abnorm Protein Band 1 PEP Interpretation Crossmatch 10/24/16 10/24/16 10/24/16 00:12 05:16 07:00 WBC 17.9 H RBC 2.12 L Hgb 6.5 L Hct 19.9 L* MCV MCHC RDW 19.3 H Plt Count 44 L Seg Neuts % (Manual) Lymphocytes % (Manual) Nucleated RBC % Seg Neutrophils # Man Lymphocytes # (Manual) Haptoglobin PT INR Fibrinogen Lupus Anticoagulant LA PTT Baseline POC ABG pH POC ABG pCO2 POC ABG pO2 Sodium Potassium Chloride Carbon Dioxide BUN Creatinine Glucose POC Glucose 116 H 135 H Lactic Acid Uric Acid Calcium Phosphorus Iron TIBC Erythropoietin Ferritin Total Bilirubin Direct Bilirubin AST ALT Alkaline Phosphatase Lactate Dehydrogenase C-Reactive Protein Serum Total Protein Total Protein Albumin Djkyl-8-Ocijbgljc Abnorm Protein Band 1 PEP Interpretation Crossmatch 10/24/16 10/24/16 10/24/16 07:00 11:45 12:12 WBC RBC Hgb Hct MCV MCHC RDW Plt Count Seg Neuts % (Manual) Lymphocytes % (Manual) Nucleated RBC % Seg Neutrophils # Man Lymphocytes # (Manual) Haptoglobin PT INR Fibrinogen Lupus Anticoagulant LA PTT Baseline POC ABG pH POC ABG pCO2 POC ABG pO2 Sodium Potassium Chloride 92.9 L Carbon Dioxide BUN 74 H Creatinine 3.3 H Glucose 136 H POC Glucose 177 H Lactic Acid Uric Acid Calcium 6.6 L Phosphorus Iron TIBC Erythropoietin Ferritin Total Bilirubin 2.10 H Direct Bilirubin AST 68 H ALT Alkaline Phosphatase 224 H Lactate Dehydrogenase C-Reactive Protein Serum Total Protein Total Protein 4.8 L Albumin 2.3 L Nwvzj-8-Thqckmbjh Abnorm Protein Band 1 PEP Interpretation Crossmatch See Detail 10/24/16 10/24/16 10/24/16 16:30 16:30 17:28 WBC RBC Hgb Hct MCV MCHC RDW Plt Count Seg Neuts % (Manual) Lymphocytes % (Manual) Nucleated RBC % Seg Neutrophils # Man Lymphocytes # (Manual) Haptoglobin PT INR Fibrinogen Lupus Anticoagulant LA PTT Baseline POC ABG pH POC ABG pCO2 POC ABG pO2 Sodium Potassium Chloride Carbon Dioxide BUN Creatinine Glucose POC Glucose 128 H Lactic Acid 3.00 H* Uric Acid Calcium Phosphorus Iron TIBC Erythropoietin Ferritin Total Bilirubin Direct Bilirubin AST ALT Alkaline Phosphatase Lactate Dehydrogenase C-Reactive Protein 7.40 H Serum Total Protein Total Protein Albumin Tqarc-3-Inucmjosb Abnorm Protein Band 1 PEP Interpretation Crossmatch 10/24/16 10/24/16 10/25/16 18:40 23:32 05:00 WBC 17.5 H RBC 2.99 L Hgb 9.1 L Hct 26.9 L D MCV MCHC RDW 17.7 H Plt Count 53 L Seg Neuts % (Manual) Lymphocytes % (Manual) Nucleated RBC % Seg Neutrophils # Man Lymphocytes # (Manual) Haptoglobin PT INR Fibrinogen Lupus Anticoagulant LA PTT Baseline POC ABG pH POC ABG pCO2 POC ABG pO2 Sodium Potassium Chloride Carbon Dioxide BUN Creatinine Glucose POC Glucose 140 H Lactic Acid 3.10 H* Uric Acid Calcium Phosphorus Iron TIBC Erythropoietin Ferritin Total Bilirubin Direct Bilirubin AST ALT Alkaline Phosphatase Lactate Dehydrogenase C-Reactive Protein Serum Total Protein Total Protein Albumin Lhhyl-0-Qnvvyaxiy Abnorm Protein Band 1 PEP Interpretation Crossmatch 10/25/16 10/25/16 10/25/16 05:00 05:22 11:58 WBC RBC Hgb Hct MCV MCHC RDW Plt Count Seg Neuts % (Manual) Lymphocytes % (Manual) Nucleated RBC % Seg Neutrophils # Man Lymphocytes # (Manual) Haptoglobin PT INR Fibrinogen Lupus Anticoagulant LA PTT Baseline POC ABG pH POC ABG pCO2 POC ABG pO2 Sodium Potassium Chloride 91.6 L Carbon Dioxide BUN 89 H Creatinine 3.9 H Glucose 150 H POC Glucose 164 H 189 H Lactic Acid Uric Acid Calcium 6.9 L Phosphorus Iron TIBC Erythropoietin Ferritin Total Bilirubin Direct Bilirubin AST ALT Alkaline Phosphatase Lactate Dehydrogenase C-Reactive Protein Serum Total Protein Total Protein Albumin Natjz-1-Cxzfnkczk Abnorm Protein Band 1 PEP Interpretation Crossmatch 10/25/16 10/25/16 10/26/16 17:56 23:12 04:00 WBC RBC Hgb Hct MCV MCHC RDW Plt Count Seg Neuts % (Manual) Lymphocytes % (Manual) Nucleated RBC % Seg Neutrophils # Man Lymphocytes # (Manual) Haptoglobin PT INR Fibrinogen Lupus Anticoagulant LA PTT Baseline POC ABG pH POC ABG pCO2 POC ABG pO2 Sodium 135 L Potassium Chloride 90.7 L Carbon Dioxide BUN 64 H Creatinine 2.9 H Glucose 132 H POC Glucose 156 H 133 H Lactic Acid Uric Acid Calcium 7.3 L Phosphorus Iron TIBC Erythropoietin Ferritin Total Bilirubin Direct Bilirubin AST ALT Alkaline Phosphatase Lactate Dehydrogenase C-Reactive Protein Serum Total Protein Total Protein Albumin Disrk-5-Lgbbbsiid Abnorm Protein Band 1 PEP Interpretation Crossmatch 10/26/16 10/26/16 10/26/16 05:14 06:15 11:51 WBC 18.6 H RBC 3.15 L Hgb 9.6 L Hct 29.0 L MCV MCHC RDW 17.8 H Plt Count 71 L Seg Neuts % (Manual) 85.0 H Lymphocytes % (Manual) 1.0 L Nucleated RBC % Seg Neutrophils # Man 15.8 H Lymphocytes # (Manual) 0.2 L Haptoglobin PT INR Fibrinogen Lupus Anticoagulant LA PTT Baseline POC ABG pH POC ABG pCO2 POC ABG pO2 Sodium Potassium Chloride Carbon Dioxide BUN Creatinine Glucose POC Glucose 130 H 139 H Lactic Acid Uric Acid Calcium Phosphorus Iron TIBC Erythropoietin Ferritin Total Bilirubin Direct Bilirubin AST ALT Alkaline Phosphatase Lactate Dehydrogenase C-Reactive Protein Serum Total Protein Total Protein Albumin Ktkvm-3-Yaegxdntk Abnorm Protein Band 1 PEP Interpretation Crossmatch 10/26/16 10/26/16 10/27/16 17:25 23:35 04:10 WBC 16.8 H RBC 3.38 L Hgb 10.1 L Hct 31.0 L MCV MCHC RDW 18.0 H Plt Count 77 L Seg Neuts % (Manual) 92.0 H Lymphocytes % (Manual) 1.0 L Nucleated RBC % 1.0 H Seg Neutrophils # Man 15.5 H Lymphocytes # (Manual) 0.2 L Haptoglobin PT INR Fibrinogen Lupus Anticoagulant LA PTT Baseline POC ABG pH POC ABG pCO2 POC ABG pO2 Sodium Potassium Chloride Carbon Dioxide BUN Creatinine Glucose POC Glucose 118 H 145 H Lactic Acid Uric Acid Calcium Phosphorus Iron TIBC Erythropoietin Ferritin Total Bilirubin Direct Bilirubin AST ALT Alkaline Phosphatase Lactate Dehydrogenase C-Reactive Protein Serum Total Protein Total Protein Albumin Lrvjq-8-Mdlsdjirz Abnorm Protein Band 1 PEP Interpretation Crossmatch 10/27/16 10/27/16 10/27/16 04:10 05:53 08:14 WBC RBC Hgb Hct MCV MCHC RDW Plt Count Seg Neuts % (Manual) Lymphocytes % (Manual) Nucleated RBC % Seg Neutrophils # Man Lymphocytes # (Manual) Haptoglobin PT 23.0 H INR 2.03 H Fibrinogen Lupus Anticoagulant LA PTT Baseline POC ABG pH POC ABG pCO2 POC ABG pO2 Sodium Potassium Chloride 95.5 L Carbon Dioxide BUN 63 H Creatinine 2.8 H Glucose 112 H POC Glucose 127 H Lactic Acid Uric Acid Calcium 7.5 L Phosphorus Iron TIBC Erythropoietin Ferritin Total Bilirubin Direct Bilirubin AST ALT Alkaline Phosphatase Lactate Dehydrogenase C-Reactive Protein Serum Total Protein Total Protein Albumin Qpfaz-0-Rczftddpe Abnorm Protein Band 1 PEP Interpretation Crossmatch 10/27/16 10/27/16 10/27/16 11:56 17:47 23:55 WBC RBC Hgb Hct MCV MCHC RDW Plt Count Seg Neuts % (Manual) Lymphocytes % (Manual) Nucleated RBC % Seg Neutrophils # Man Lymphocytes # (Manual) Haptoglobin PT INR Fibrinogen Lupus Anticoagulant LA PTT Baseline POC ABG pH POC ABG pCO2 POC ABG pO2 Sodium Potassium Chloride Carbon Dioxide BUN Creatinine Glucose POC Glucose 113 H 117 H 142 H Lactic Acid Uric Acid Calcium Phosphorus Iron TIBC Erythropoietin Ferritin Total Bilirubin Direct Bilirubin AST ALT Alkaline Phosphatase Lactate Dehydrogenase C-Reactive Protein Serum Total Protein Total Protein Albumin Kwwfw-8-Srqrnqgtp Abnorm Protein Band 1 PEP Interpretation Crossmatch 10/28/16 10/28/16 05:45 05:45 WBC 16.6 H RBC 3.18 L Hgb 9.5 L Hct 29.3 L MCV MCHC RDW 17.6 H Plt Count 83 L Seg Neuts % (Manual) 87.0 H Lymphocytes % (Manual) 3.0 L Nucleated RBC % Seg Neutrophils # Man 14.4 H Lymphocytes # (Manual) 0.5 L Haptoglobin PT INR Fibrinogen Lupus Anticoagulant LA PTT Baseline POC ABG pH POC ABG pCO2 POC ABG pO2 Sodium Potassium Chloride 94.6 L Carbon Dioxide 21 L BUN 90 H Creatinine 3.9 H Glucose 152 H POC Glucose Lactic Acid Uric Acid Calcium 6.9 L Phosphorus Iron TIBC Erythropoietin Ferritin Total Bilirubin Direct Bilirubin AST ALT Alkaline Phosphatase Lactate Dehydrogenase C-Reactive Protein Serum Total Protein Total Protein Albumin Duxqt-9-Wlgyshehm Abnorm Protein Band 1 PEP Interpretation Crossmatch Allied health notes reviewed: RT
--- NOTE | 2016-10-28 11:32 | Progress Note ---
Assessment and Plan Assessment and plan: Patient is a 61-year-old man without known past medical history who presented to the emergency department [facility] on 10/13/16, complaining of bilateral leg swelling that worsened for the last 4 days. He was found to have severe metabolic acidosis, creatinine was 14.5 with hyperkalemia, emergent Hemodialysis was done. He was also found to have severe pancytopenia, thrombocytopenia and Dr. 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 He was on bipap and was intubated 10/16/16, details are not readily available on why he needed to be intubated, no nursing note for 10/16. -Acute encephalopathy, not sedated, see Neurologist note below -AFIB WITH RVR: Cardiology is following -Group B strep bacteremia: JONATHAN pending, but plt count too low, probably when plt count over 50k -Acute Respiratory failure with hypoxia, intubated: continue mv -Pancytopenia [leukopenia, severe anemia, Woresening thrombocytopenia] heme/onc is following, s/p PLASMAPHERSIS, s/p PRBC transfusion, s/p plt -ARF, renal tubular stasis, poa -secondary coagulopathy -Lactic acidosis -Probable TTP, await ADAMTS results -hypoglycemia -Acute systolic congestive heart failure EF around 30% -SEVERE SEPSIS, poa per Neurologist, Dr. Bernardo "61 YO M Hx HTN admitted 10/13 w/ sepsis w/ bacteremia, severe metabolic acidosis , RAJESH requiring emergent HD, severe pancytopenia, ? DIC vs. HUS vs. TTP on Plasmapheresis and acute respiratory failure with hypoxia s/p intubation. There has not been cleared documented episode of cardiac arrest but pt was hypotensive during admission. On exam eyes open to stimlation, stuporous MS poor concentration, paucity of speech, intact brainstem reflexes but not able to follow midline/peripheral commands w/ grossly intact motor-sensory exam as withdraws from pain in UE but triple flexion LE but otherwise grossly intact symmetric neurologic exam, consistent with toxic metabolic infectious derangement as the etiology for neurologic decompensation. CTH 10/13 vague L anterior internal capsule hypodensities and chronic lacunes L brainstem and L periventricular white matter. B12/TSH/NH4 normal. 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 No Stone dispensed d/t RAJESH. TTE w/o endocarditis/thrombus. Recommendations: 1. Check f/u CTH and CTA H/N 2. Cont Infectious work up/medical management for UTI, PNA, cellulitis, bacteremia, etc. 3. Avoid hyponatremia, hypo/hyper-calcemia, hypo/hyperglycemia, acidosis, hypoxia/hypoxemia, hypercarbia/hypercapnia 4. Avoid institution of any psychoactive medications (e.g. antihistamines, anticholinergics, BZD, hypnotics, opiates) as able unless low doses of low potency antipsychotic needed for behavioral issues complicating medical care 5. Thiamine/Folate/CIWA protocol accordingly for any hx obtained to suggest EtOH withdrawal 6. Cont home meds-there is no neurologic indication to change CTH confirms multifocal hemorrhagic lesions but no midline shift/compression of brain structures/significant mass effect and is actually improved from prior MRI. CTA H/N w/o vascular lesion. JONATHAN w/o endocarditis or source of emboli. 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 Recs: 1. Avoid all blood thinners until hemorrhage stable 2. BP control: goal < 140/90 using prn Labetalol/Hydralyzine/Nicardipine. Cont home BP med. 3. Cont Infectious work up/medical management for UTI, PNA, cellulitis, bacteremia, etc. 3. Avoid hyponatremia, hypo/hyper-calcemia, hypo/hyperglycemia, acidosis, hypoxia/hypoxemia, hypercarbia/hypercapnia 4. Avoid institution of any psychoactive medications (e.g. antihistamines, anticholinergics, BZD, hypnotics, opiates) as able unless low doses of low potency antipsychotic needed for behavioral issues complicating medical care 5. Thiamine/Folate/CIWA protocol accordingly for any hx obtained to suggest EtOH withdrawal 6. Cont home meds-there is no neurologic indication to change 7. DVT Prophylaxis: SCDs/TEDs 8. Dispo: PT/OT/CM evaluations" History Interval history: Patient seen and examined. Follow up on respiratory failure, patient still intubated. Overnight uneventful. No cp, sob, n/v or severe headaches. Imaging, old records, testing, labs, nursing notes reviewed. Hospitalist Physical - Physical exam Narrative exam: GEN: Critically ill intubated but not sedated HEENT: Eyes are floating, ET tube in place CVS: irregular, NORMAL S1S2 LUNGS/CHEST: NORMAL CHEST EXPANSION B, GOOD AIR ENTRY B ABD: SOFT, POSITIVE BOWEL SOUNDS, NONDISTENDED, NO REBOUND OR GUARDING NEURO: CN 2-12 GROSSLY INTACT, he doesn't follow commands PSY: Unresponsive - Constitutional Vitals: Temp Pulse Resp BP Pulse Ox 99.0 F 76 23 117/76 99 10/28/16 08:00 10/28/16 10:00 10/28/16 10:00 10/28/16 10:00 10/28/16 09:30 General appearance: Present: no acute distress Results - Labs CBC & Chem 7: 10/28/16 05:45 10/28/16 05:45 Labs: Laboratory Last Values WBC 16.6 K/mm3 (4.5-11.0) H 10/28/16 05:45 RBC 3.18 M/mm3 (3.65-5.03) L 10/28/16 05:45 Hgb 9.5 gm/dl (11.8-15.2) L 10/28/16 05:45 Hct 29.3 % (35.5-45.6) L 10/28/16 05:45 MCV 92 fl (84-94) 10/28/16 05:45 MCH 30 pg (28-32) 10/28/16 05:45 MCHC 33 % (32-34) 10/28/16 05:45 RDW 17.6 % (13.2-15.2) H 10/28/16 05:45 Plt Count 83 K/mm3 (140-440) L 10/28/16 05:45 Lymph % (Auto) Gage Designer 10/14/16 04:34 Tompkins % (Auto) Gage Designer 10/14/16 04:34 Eos % (Auto) Gage Designer 10/14/16 04:34 Baso % (Auto) Gage Designer 10/14/16 04:34 Lymph # Gage Designer 10/14/16 04:34 Tompkins # Gage Designer 10/14/16 04:34 Eos # Gage Designer 10/14/16 04:34 Baso # Gage Designer 10/14/16 04:34 Add Manual Diff Complete 10/28/16 05:45 Total Counted 100 10/28/16 05:45 Seg Neutrophils % Gage Designer 10/28/16 05:45 Seg Neuts % (Manual) 87.0 % (40.0-70.0) H 10/28/16 05:45 Band Neutrophils % 5.0 % 10/28/16 05:45 Lymphocytes % (Manual) 3.0 % (13.4-35.0) L 10/28/16 05:45 Reactive Lymphs % (Man) 0 % 10/28/16 05:45 Monocytes % (Manual) 5.0 % (0.0-7.3) 10/28/16 05:45 Eosinophils % (Manual) 1.0 % (0.0-4.3) 10/27/16 04:10 Basophils % (Manual) 0 % (0.0-1.8) 10/27/16 04:10 Metamyelocytes % 0 % 10/28/16 05:45 Myelocytes % 0 % 10/28/16 05:45 Promyelocytes % 0 % 10/28/16 05:45 Blast Cells % 0 % 10/28/16 05:45 Nucleated RBC % Not Reportable 10/28/16 05:45 Seg Neutrophils # Gage Designer 10/14/16 04:34 Seg Neutrophils # Man 14.4 K/mm3 (1.8-7.7) H 10/28/16 05:45 Band Neutrophils # 0.8 K/mm3 10/28/16 05:45 Lymphocytes # (Manual) 0.5 K/mm3 (1.2-5.4) L 10/28/16 05:45 Abs React Lymphs (Man) 0.0 K/mm3 10/28/16 05:45 Monocytes # (Manual) 0.8 K/mm3 (0.0-0.8) 10/28/16 05:45 Eosinophils # (Manual) 0.0 K/mm3 (0.0-0.4) 10/28/16 05:45 Basophils # (Manual) 0.0 K/mm3 (0.0-0.1) 10/28/16 05:45 Metamyelocytes # 0.0 K/mm3 10/28/16 05:45 Myelocytes # 0.0 K/mm3 10/28/16 05:45 Promyelocytes # 0.0 K/mm3 10/28/16 05:45 Blast Cells # 0.0 K/mm3 10/28/16 05:45 WBC Morphology Not Reportable 10/28/16 05:45 Hypersegmented Neuts Not Reportable 10/28/16 05:45 Hyposegmented Neuts Not Reportable 10/28/16 05:45 Hypogranular Neuts Not Reportable 10/28/16 05:45 Smudge Cells Not Reportable 10/28/16 05:45 Toxic Granulation Not Reportable 10/28/16 05:45 Toxic Vacuolation Not Reportable 10/28/16 05:45 Dohle Bodies Not Reportable 10/28/16 05:45 Pelger-Huet Anomaly Not Reportable 10/28/16 05:45 Madhu Rods Not Reportable 10/28/16 05:45 Platelet Estimate Appe 10/28/16 05:45 Clumped Platelets Not Reportable 10/28/16 05:45 Plt Clumps, EDTA Not Reportable 10/28/16 05:45 Large Platelets Few 10/28/16 05:45 Giant Platelets Not Reportable 10/28/16 05:45 Platelet Satelliting Not Reportable 10/28/16 05:45 Plt Morphology Comment Not Reportable 10/28/16 05:45 RBC Morphology Not Reportable 10/28/16 05:45 Dimorphic RBCs Not Reportable 10/28/16 05:45 Polychromasia Not Reportable 10/28/16 05:45 Hypochromasia Not Reportable 10/28/16 05:45 Poikilocytosis Not Reportable 10/28/16 05:45 Basophilic Stippling Rare 10/21/16 10:30 Anisocytosis 1+ 10/28/16 05:45 Microcytosis Not Reportable 10/28/16 05:45 Macrocytosis 1+ 10/28/16 05:45 Spherocytes Not Reportable 10/28/16 05:45 Pappenheimer Bodies Not Reportable 10/28/16 05:45 Sickle Cells Not Reportable 10/28/16 05:45 Target Cells Rare 10/28/16 05:45 Tear Drop Cells Not Reportable 10/28/16 05:45 Ovalocytes Not Reportable 10/28/16 05:45 Stomatocytes Few 10/28/16 05:45 Helmet Cells Not Reportable 10/28/16 05:45 Goodman-Waller Bodies Not Reportable 10/28/16 05:45 Dupo Rings Not Reportable 10/28/16 05:45 [place] Cells Not Reportable 10/28/16 05:45 Bite Cells Not Reportable 10/28/16 05:45 Crenated Cell Not Reportable 10/28/16 05:45 Elliptocytes Not Reportable 10/28/16 05:45 Acanthocytes (Spur) Not Reportable 10/28/16 05:45 Rouleaux Not Reportable 10/28/16 05:45 Hemoglobin C Crystals Not Reportable 10/28/16 05:45 Schistocytes Not Reportable 10/28/16 05:45 Malaria parasites Not Reportable 10/28/16 05:45 ESR 77 mm/Hr (0-20) 10/14/16 04:34 Pal Bodies Not Reportable 10/28/16 05:45 Haptoglobin <15 mg/dL (43-212) L 10/15/16 12:00 Hem Pathologist Commnt No 10/28/16 05:45 PT 23.0 Sec. (12.2-14.9) H 10/27/16 08:14 INR 2.03 (0.87-1.13) H 10/27/16 08:14 Fibrinogen 557 mg/dl (211-480) H 10/14/16 09:58 Lupus Anticoagulant see below H 10/14/16 03:00 LA PTT Baseline 55 sec (<=40) H 10/14/16 03:00 dRVVT Confirm Interp Negative (Negative) 10/14/16 03:00 POC ABG pH 7.476 (7.35-7.45) H 10/23/16 04:47 POC ABG pCO2 37.4 (35-45) 10/23/16 04:47 POC ABG pO2 108 (80-105) H 10/23/16 04:47 POC ABG HCO3 27.6 10/23/16 04:47 POC ABG Total CO2 29 10/23/16 04:47 POC ABG O2 Sat 99 10/23/16 04:47 POC ABG Base Excess 4 10/23/16 04:47 FiO2 25 % 10/23/16 04:47 Sodium 137 mmol/L (137-145) 10/28/16 05:45 Potassium 4.4 mmol/L (3.6-5.0) 10/28/16 05:45 Chloride 94.6 mmol/L (98-107) L 10/28/16 05:45 Carbon Dioxide 21 mmol/L (22-30) L 10/28/16 05:45 Anion Gap 26 mmol/L 10/28/16 05:45 BUN 90 mg/dL (9-20) H 10/28/16 05:45 Creatinine 3.9 mg/dL (0.8-1.5) H 10/28/16 05:45 Estimated GFR 16 ml/min 10/28/16 05:45 BUN/Creatinine Ratio 23.07 % 10/28/16 05:45 Glucose 152 mg/dL (75-100) H 10/28/16 05:45 POC Glucose 142 (70-105) H 10/27/16 23:55 Lactic Acid 3.10 mmol/L (0.7-2.0) H* 10/24/16 18:40 Uric Acid 8.0 mg/dL (3.5-7.6) H 10/14/16 03:00 Calcium 6.9 mg/dL (8.4-10.2) L 10/28/16 05:45 Phosphorus 6.30 mg/dL (2.5-4.5) H 10/19/16 06:00 Iron 146 ug/dL (49-181) 10/15/16 05:35 TIBC 166 mcg/dL (250-450) L 10/15/16 05:35 Erythropoietin 148.2 mIU/mL (2.6-18.5) H 10/19/16 14:15 Ferritin 9562.0 ng/mL (13.0-400.0) H 10/15/16 05:35 Total Bilirubin 2.10 mg/dL (0.1-1.2) H 10/24/16 07:00 Direct Bilirubin 1.1 mg/dL (0-0.2) H 10/14/16 09:58 Indirect Bilirubin 0.2 mg/dL 10/14/16 09:58 AST 68 units/L (5-40) H 10/24/16 07:00 ALT 46 units/L (7-56) 10/24/16 07:00 Alkaline Phosphatase 224 units/L (35-129) H 10/24/16 07:00 Ammonia 32.0 umol/L (25-60) 10/19/16 14:15 Lactate Dehydrogenase 3871 units/L (91-180) H 10/15/16 05:35 Troponin T 0.079 ng/mL (0.00-0.029) H 10/13/16 10:14 C-Reactive Protein 7.40 mg/dL (0.00-1.30) H 10/24/16 16:30 NT-Pro-B Natriuret Pep > 19265 pg/mL (0-900) H 10/13/16 10:14 Serum Total Protein 5.6 g/dL (6.1-8.1) L 10/13/16 14:50 Total Protein 4.8 g/dL (6.3-8.2) L 10/24/16 07:00 Albumin 2.3 g/dL (3.9-5) L 10/24/16 07:00 Albumin/Globulin Ratio 0.9 % 10/24/16 07:00 Kppbr-8-Tcrfsyizp 0.5 g/dL (0.2-0.3) H 10/13/16 14:50 Nyypi-2-Aoziyvlhh 0.6 g/dL (0.5-0.9) 10/13/16 14:50 Beta Globulins 0.3 g/dL (0.2-0.5) 10/13/16 14:50 Gamma Globulins 1.7 g/dL (0.8-1.7) 10/13/16 14:50 Abnorm Protein Band 1 1.4 g/dL H 10/13/16 14:50 PEP Interpretation see below H 10/13/16 14:50 Triglycerides 119 mg/dL (2-149) 10/13/16 10:14 Cholesterol 71 mg/dL (50-199) 10/13/16 10:14 LDL Cholesterol Direct 41 mg/dL (50-130) L 10/13/16 10:14 HDL Cholesterol 7 mg/dL (40-59) L 10/13/16 10:14 Cholesterol/HDL Ratio 10.14 % 10/13/16 10:14 Lipase 21 units/L (13-60) 10/15/16 05:35 Vitamin B12 893.9 pg/mL (211-911) 10/14/16 03:00 TSH 0.526 mlU/mL (0.270-4.200) 10/19/16 14:15 Random Vancomycin 18.7 ug/mL (0-40.0) 10/28/16 05:45 IgG 1040 mg/dL (694-1618) 10/19/16 14:15 IgA 149 mg/dL (81-463) 10/19/16 14:15 IgM 53 mg/dL (48-271) 10/19/16 14:15 XU Screen Negative (Negative) 10/13/16 14:50 Proteinase 3 (PR3) Ab <1.0 AI (<1.0) 10/13/16 14:50 Myeloperoxidase Ab <1.0 AI (<1.0) 10/13/16 14:50 Glomerular Base Mem IgG <1.0 AI (<1.0) 10/13/16 14:50 Complement C3 101 mg/dL (90-180) 10/13/16 14:50 Complement C4 16 mg/dL (16-47) 10/13/16 14:50 Hep Bs Antigen Non-reactive (Negative) 10/13/16 14:50 Hepatitis C Antibody Non-reactive (NonReactive) 10/13/16 14:50 HIV 1&2 Antibody Rapid Non react (Non React) 10/13/16 14:50 HIV P24 Antigen Non react (Non React) 10/13/16 14:50 Schistocytes Smear None seen 10/15/16 12:00 Flow Intrp 16+ Markers Scanned into [facility] rec 10/14/16 11:30 Flow Cytometry Interp Scanned into [facility] rec 10/14/16 11:30 Blood Type O POSITIVE 10/24/16 11:45 Antibody Screen TNR 10/24/16 11:45 MADIHA Antibody Screen Negative 10/24/16 11:45 Direct Antiglob Test Negative 10/14/16 03:00 ELAINE, Poly Interpret Negative 10/14/16 03:00 Crossmatch See Detail 10/24/16 11:45
--- NOTE | 2016-10-28 11:44 | Progress Note ---
Assessment and Plan Assessment: Multifocal intracranial hemorrhagic lesions - JONATHAN w/o endocarditis or source of emboli. 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 Acute respiratory failure - intubated. Sepsis / beta hemolitic strep bacterimia / leukocytosis - 2nd BC with no growth ; S/p JONATHAN 10/27/2016; bubble study negative, no endocarditis visualized, no thrombus. Paroxysmal atrial fibrillation with variable ventricular response --> remains in SR Acute metabolic encephalopathy ARF on CKD - requiring HD Profound metabolic acidemia/lactic acidosis Anemia / thrombocytopenia - on plasmapheresis. Hypocalcemia Plan: Cont lopressor. Given anemia, thrombocytopenia, and multifocal intracranial hemorrhagic lesions , defer systemic anticoagulation for now. Consider ischemic evaluation (stress test) once medically stabilized. No ACEI/ARB in setting of ARF on CKD. Pt's considering future goals of care (i.e. trach/PEG). Currently stable cardiac status. Will see PRN. The patient has been seen in conjunction with Dr. Parikh who agrees with the assessment and plan of care. Subjective Date of service: 10/28/16 Principal diagnosis: Sepsis Syndrome; MAHA; RAJESH; CHF; TTP Interval history: Pt remains intubated, nonresponsive. Remains in SR. at bedside. Objective Last Vital Signs Temp 99.0 F 10/28/16 08:00 Pulse 76 10/28/16 10:00 Resp 23 10/28/16 10:00 BP 117/76 10/28/16 10:00 Pulse Ox 99 10/28/16 09:30 - Physical Examination General: Other (intubated; nonresponsive ) HEENT: Positive: Jaundice Neck: Positive: neck supple, trachea midline. Negative: JVD/HJR Cardiac: Positive: Reg Rate and Rhythm, S1/S2 Lungs: Positive: clear to auscultation, Ventilated Respirations Neuro: Positive: Other (intubated; nonresponsive ) Abdomen: Positive: Soft, Active Bowel Sounds Skin: Positive: Clear. Negative: Rash, Wound Musculoskeletal: No Fluid Collection, No Pain, Normal Range of Motion Extremities: Present: upper extr. pulses, lower extr. pulses. Absent: edema - Labs and Meds CBC 10/28/16 Range/Units 05:45 WBC 16.6 H (4.5-11.0) K/mm3 RBC 3.18 L (3.65-5.03) M/mm3 Hgb 9.5 L (11.8-15.2) gm/dl Hct 29.3 L (35.5-45.6) % Plt Count 83 L (140-440) K/mm3 Comprehensive Metabolic Panel 10/28/16 Range/Units 05:45 Sodium 137 (137-145) mmol/L Potassium 4.4 (3.6-5.0) mmol/L Chloride 94.6 L (98-107) mmol/L Carbon Dioxide 21 L (22-30) mmol/L BUN 90 H (9-20) mg/dL Creatinine 3.9 H (0.8-1.5) mg/dL Glucose 152 H (75-100) mg/dL Calcium 6.9 L (8.4-10.2) mg/dL - Imaging and Cardiology EKG: report reviewed, image reviewed Echo: report reviewed - Telemetry EKG Rhythm: Sinus Rhythm - Allied health notes Allied health notes reviewed: RT
[2016-10-28 13:02] LABS: ISTAT Base Excess -1; ISTAT PCO2 37.8 (35-45); ISTAT PO2 93 (80-105); ISTAT SO2 97; ISTAT TCO2 25
--- NOTE | 2016-10-28 15:51 | Consultation ---
History of Present Illness Consult date: 10/28/16 Reason for consult: other (evaluate for tracheostomy and feeding tube) Requesting physician: MAURICIO HOOD Chief complaint: Prolonged vent dependence - History of present illness History of present illness: Is a 61-year-old male who presented with bilateral lower extremity swelling. Patient was admitted found to be in acute renal failure started on emergent dialysis. He was also noted to be confused and during the course of his initial early hospital stay developed congestive heart failure as well as acute respiratory failure. This necessitated him being intubated on 10/16. Currently , he has been unable to be weaned off of the ventilator. I've been asked to evaluate the patient for placement of a tracheostomy and a PEG. He is currently undergoing hemodialysis for his renal failure. Past History Past Medical History: hypertension, other (Had shingles in November 27-) Past Surgical History: No surgical history Social history: , full code, other (Patienti s and lives with his ). denies: smoking, alcohol abuse, prescription drug abuse, IV drug use Family history: no significant family history Medications and Allergies Allergies Allergy/AdvReac Type Severity Reaction Status Date / Time No Known Allergies Allergy Unverified 10/13/16 09:41 Home Medications Medication Instructions Recorded Confirmed Last Taken Type Naproxen Sodium [Aleve TAB] 2 tab PO Q8H PRN 10/13/16 10/13/16 10/12/16 14:00 History Active Meds: Active Medications Acetaminophen (Tylenol) 1,000 mg TN Q4H PRN PRN Reason: Pain, Mild (1-3) Last Admin: 10/20/16 15:40 Dose: 1,000 mg Acetaminophen (Tylenol) 650 mg FEEDTUBE Q6H PRN PRN Reason: Pain, Mild (1-3) Last Admin: 10/24/16 10:56 Dose: 650 mg Lipase/Protease/Amylase (Pancreaze Dr 10,500 Unit) 1 each FEEDTUBE PRN PRN PRN Reason: For Clogged Feeding Tube Dextrose (D50w (25gm)) 25 ml IV PRN PRN PRN Reason: Hypoglycemia Last Admin: 10/18/16 07:20 Dose: 25 ml Diphenhydramine HCl (Benadryl) 50 mg IV Q6H PRN PRN Reason: Itching Last Admin: 10/24/16 10:57 Dose: 50 mg Famotidine (Pepcid) 20 mg PO Q24H EDWINA Last Admin: 10/28/16 09:46 Dose: 20 mg Haloperidol Lactate (Haldol) 5 mg IM Q6H PRN PRN Reason: Agitation Last Admin: 10/14/16 21:11 Dose: 5 mg Heparin Sodium (Porcine) (Heparin) 10,000 unit IV ROD PRN PRN Reason: for plasmapheresis- vascath Last Admin: 10/25/16 15:40 Dose: 10,000 unit Hydrocortisone Sodium Succinate (Solu-Cortef) 60 mg IV Q8HR EDWINA Last Admin: 10/28/16 15:07 Dose: Not Given Hydrophilic Ointment (Vaseline Lip Therapy) 1 applic TP Q2H PRN PRN Reason: Dry Lips Sodium Chloride (Nacl 0.9%) 100 mls @ 999 mls/hr IV ROD PRN PRN Reason: Hypotension Propofol (Diprivan 10 Mg/Ml) 1,000 mg in 100 mls @ 1.827 mls/hr IV TITR EDWINA; 5 MCG/KG/MIN PRN Reason: Protocol Last Titration: 10/20/16 10:12 Dose: 0 mcg/kg/min, 0 mls/hr Fentanyl Citrate (Fentanyl Drip Premix) 2,000 mcg in 100 mls @ 3.045 mls/hr IV TITR EDWINA; 1 MCG/KG/HR PRN Reason: Protocol Insulin Aspart (Novolog) 0 units SUB-Q Q6HR EDWINA PRN Reason: Protocol Last Admin: 10/28/16 12:31 Dose: Not Given Labetalol HCl (Normodyne) 20 mg IV Q6H PRN PRN Reason: Hypertension Last Admin: 10/25/16 05:33 Dose: 20 mg Metoprolol Tartrate (Lopressor) 25 mg PO BID [facility] Last Admin: 10/28/16 10:00 Dose: Not Given Metronidazole (Flagyl) 500 mg FEEDTUBE Q8H [facility] Last Admin: 10/28/16 12:48 Dose: 500 mg Multi-Ingred Cream/Lotion/Oil/Oint (Artificial Tears Ophth Oint) 1 applic OU Q4H PRN PRN Reason: Dry Eye(s) Ondansetron HCl (Zofran) 4 mg IV Q8H PRN PRN Reason: Nausea And Vomiting Simple Syrup (Simple Syrup) 15 ml FEEDTUBE PRN PRN PRN Reason: Hypoglycemia Simple Syrup (Simple Syrup) 30 ml FEEDTUBE PRN PRN PRN Reason: Hypoglycemia Sodium Bicarbonate (Sodium Bicarbonate) 325 mg FEEDTUBE PRN PRN PRN Reason: For Clogged Feeding Tube Sodium Chloride (Sodium Chloride Flush Syringe 10 Ml) 10 ml IV PRN PRN PRN Reason: LINE FLUSH Last Admin: 10/17/16 20:45 Dose: 10 ml Vancomycin HCl (Vancomycin Pharmacy To Dose) 1 each IV PKCONSULT EDWINA PRN Reason: Protocol Review of Systems ROS unobtainable: due to mental status Exam Vital Signs Temp Pulse Resp BP Pulse Ox 98.2 F 89 18 133/86 98 10/13/16 09:38 10/13/16 09:38 10/13/16 09:38 10/13/16 09:38 10/13/16 09:38 - General physical appearance Positive: no distress - Respiratory Positive: normal respiratory effort (on 35% FiO2 with a PEEP of 5) - Cardiovascular Rhythm: regular - Abdomen Abdomen: Present: soft, surgical scars. Absent: tender, distended - Neurologic Neurologic: other (sedated and intubated) Results - Labs 10/28/16 05:45 10/28/16 05:45 Abnormal lab results 10/27/16 10/27/16 10/28/16 Range/Units 17:47 23:55 05:45 WBC 16.6 H (4.5-11.0) K/mm3 RBC 3.18 L (3.65-5.03) M/mm3 Hgb 9.5 L (11.8-15.2) gm/dl Hct 29.3 L (35.5-45.6) % RDW 17.6 H (13.2-15.2) % Plt Count 83 L (140-440) K/mm3 Seg Neuts % (Manual) 87.0 H (40.0-70.0) % Lymphocytes % (Manual) 3.0 L (13.4-35.0) % Seg Neutrophils # Man 14.4 H (1.8-7.7) K/mm3 Lymphocytes # (Manual) 0.5 L (1.2-5.4) K/mm3 Chloride (98-107) mmol/L Carbon Dioxide (22-30) mmol/L BUN (9-20) mg/dL Creatinine (0.8-1.5) mg/dL Glucose (75-100) mg/dL POC Glucose 117 H 142 H (70-105) Calcium (8.4-10.2) mg/dL 10/28/16 10/28/16 Range/Units 05:45 11:44 WBC (4.5-11.0) K/mm3 RBC (3.65-5.03) M/mm3 Hgb (11.8-15.2) gm/dl Hct (35.5-45.6) % RDW (13.2-15.2) % Plt Count (140-440) K/mm3 Seg Neuts % (Manual) (40.0-70.0) % Lymphocytes % (Manual) (13.4-35.0) % Seg Neutrophils # Man (1.8-7.7) K/mm3 Lymphocytes # (Manual) (1.2-5.4) K/mm3 Chloride 94.6 L (98-107) mmol/L Carbon Dioxide 21 L (22-30) mmol/L BUN 90 H (9-20) mg/dL Creatinine 3.9 H (0.8-1.5) mg/dL Glucose 152 H (75-100) mg/dL POC Glucose 151 H (70-105) Calcium 6.9 L (8.4-10.2) mg/dL Diabetes panel 10/28/16 Range/Units 05:45 Sodium 137 (137-145) mmol/L Potassium 4.4 (3.6-5.0) mmol/L Chloride 94.6 L (98-107) mmol/L Carbon Dioxide 21 L (22-30) mmol/L BUN 90 H (9-20) mg/dL Creatinine 3.9 H (0.8-1.5) mg/dL Glucose 152 H (75-100) mg/dL Calcium 6.9 L (8.4-10.2) mg/dL Calcium panel 10/28/16 Range/Units 05:45 Calcium 6.9 L (8.4-10.2) mg/dL Pituitary panel 10/28/16 Range/Units 05:45 Sodium 137 (137-145) mmol/L Potassium 4.4 (3.6-5.0) mmol/L Chloride 94.6 L (98-107) mmol/L Carbon Dioxide 21 L (22-30) mmol/L BUN 90 H (9-20) mg/dL Creatinine 3.9 H (0.8-1.5) mg/dL Glucose 152 H (75-100) mg/dL Calcium 6.9 L (8.4-10.2) mg/dL Adrenal panel 10/28/16 Range/Units 05:45 Sodium 137 (137-145) mmol/L Potassium 4.4 (3.6-5.0) mmol/L Chloride 94.6 L (98-107) mmol/L Carbon Dioxide 21 L (22-30) mmol/L BUN 90 H (9-20) mg/dL Creatinine 3.9 H (0.8-1.5) mg/dL Glucose 152 H (75-100) mg/dL Calcium 6.9 L (8.4-10.2) mg/dL Assessment and Plan 61-year-old male with a history of acute renal failure, acute respiratory failure, congestive heart failure who was currently, approximately day 12 of ventilator support and has been unable to be weaned off of the ventilator. The patient meets the criteria for placement of a tracheostomy and a PEG in approximately 2 days. We'll discuss the risks and benefits with the family when available (an attempt has been made to contact the was not available at this time was ). Please continue supportive care. Wean vent as tolerated. We'll follow with you. Thank you for allowing us to participate in the treatment of this patient.
--- NOTE | 2016-10-28 16:09 | Consultation ---
History of Present Illness - Reason for Consult Consult date: 10/28/16 - History of Present Illness Patients reports reviewed, including labs which sees to be improving, with the exception of the renal labs. I have reviewed other notes as well. The [id number] result still pending .I have contacted the pathology, to see if any new information. I have also discussed with the renal service at [facility] in the ICU , regarding the whole puzzling issues behind this case.I have indicated that i will do BM bx if [id number] is negative. Past History Past Medical History: hypertension, other (Had shingles in November 27-) Past Surgical History: No surgical history Social history: , full code, other (Patienti s and lives with his ). denies: smoking, alcohol abuse, prescription drug abuse, IV drug use Family history: no significant family history Medications and Allergies Allergies Allergy/AdvReac Type Severity Reaction Status Date / Time No Known Allergies Allergy Unverified 10/13/16 09:41 Home Medications Medication Instructions Recorded Confirmed Last Taken Type Naproxen Sodium [Aleve TAB] 2 tab PO Q8H PRN 10/13/16 10/13/16 10/12/16 14:00 History Active Meds: Active Medications Acetaminophen (Tylenol) 1,000 mg IA Q4H PRN PRN Reason: Pain, Mild (1-3) Last Admin: 10/20/16 15:40 Dose: 1,000 mg Acetaminophen (Tylenol) 650 mg FEEDTUBE Q6H PRN PRN Reason: Pain, Mild (1-3) Last Admin: 10/24/16 10:56 Dose: 650 mg Lipase/Protease/Amylase (Pancreaze Dr 10,500 Unit) 1 each FEEDTUBE PRN PRN PRN Reason: For Clogged Feeding Tube Dextrose (D50w (25gm)) 25 ml IV PRN PRN PRN Reason: Hypoglycemia Last Admin: 10/18/16 07:20 Dose: 25 ml Diphenhydramine HCl (Benadryl) 50 mg IV Q6H PRN PRN Reason: Itching Last Admin: 10/24/16 10:57 Dose: 50 mg Famotidine (Pepcid) 20 mg PO Q24H EDWINA Last Admin: 10/28/16 09:46 Dose: 20 mg Haloperidol Lactate (Haldol) 5 mg IM Q6H PRN PRN Reason: Agitation Last Admin: 10/14/16 21:11 Dose: 5 mg Heparin Sodium (Porcine) (Heparin) 10,000 unit IV ROD PRN PRN Reason: for plasmapheresis- vascath Last Admin: 10/25/16 15:40 Dose: 10,000 unit Hydrocortisone Sodium Succinate (Solu-Cortef) 60 mg IV Q8HR [facility] Last Admin: 10/28/16 15:07 Dose: Not Given Hydrophilic Ointment (Vaseline Lip Therapy) 1 applic TP Q2H PRN PRN Reason: Dry Lips Sodium Chloride (Nacl 0.9%) 100 mls @ 999 mls/hr IV ROD PRN PRN Reason: Hypotension Propofol (Diprivan 10 Mg/Ml) 1,000 mg in 100 mls @ 1.827 mls/hr IV TITR EDWINA; 5 MCG/KG/MIN PRN Reason: Protocol Last Titration: 10/20/16 10:12 Dose: 0 mcg/kg/min, 0 mls/hr Fentanyl Citrate (Fentanyl Drip Premix) 2,000 mcg in 100 mls @ 3.045 mls/hr IV TITR EDWINA; 1 MCG/KG/HR PRN Reason: Protocol Insulin Aspart (Novolog) 0 units SUB-Q Q6HR EDWINA PRN Reason: Protocol Last Admin: 10/28/16 12:31 Dose: Not Given Labetalol HCl (Normodyne) 20 mg IV Q6H PRN PRN Reason: Hypertension Last Admin: 10/25/16 05:33 Dose: 20 mg Metoprolol Tartrate (Lopressor) 25 mg PO BID [facility] Last Admin: 10/28/16 10:00 Dose: Not Given Metronidazole (Flagyl) 500 mg FEEDTUBE Q8H [facility] Last Admin: 10/28/16 12:48 Dose: 500 mg Multi-Ingred Cream/Lotion/Oil/Oint (Artificial Tears Ophth Oint) 1 applic OU Q4H PRN PRN Reason: Dry Eye(s) Ondansetron HCl (Zofran) 4 mg IV Q8H PRN PRN Reason: Nausea And Vomiting Simple Syrup (Simple Syrup) 15 ml FEEDTUBE PRN PRN PRN Reason: Hypoglycemia Simple Syrup (Simple Syrup) 30 ml FEEDTUBE PRN PRN PRN Reason: Hypoglycemia Sodium Bicarbonate (Sodium Bicarbonate) 325 mg FEEDTUBE PRN PRN PRN Reason: For Clogged Feeding Tube Sodium Chloride (Sodium Chloride Flush Syringe 10 Ml) 10 ml IV PRN PRN PRN Reason: LINE FLUSH Last Admin: 10/17/16 20:45 Dose: 10 ml Vancomycin HCl (Vancomycin Pharmacy To Dose) 1 each IV PKCONSULT EDWINA PRN Reason: Protocol Exam - Constitutional Vitals: Temp Pulse Resp BP Pulse Ox 98.5 F 84 19 111/74 99 10/28/16 12:00 10/28/16 14:30 10/28/16 14:30 10/28/16 14:30 10/28/16 14:30 Results - Labs CBC & Chem 7: 10/28/16 05:45 10/28/16 05:45 Labs: Abnormal lab results 10/27/16 10/27/16 10/28/16 Range/Units 17:47 23:55 05:45 WBC 16.6 H (4.5-11.0) K/mm3 RBC 3.18 L (3.65-5.03) M/mm3 Hgb 9.5 L (11.8-15.2) gm/dl Hct 29.3 L (35.5-45.6) % RDW 17.6 H (13.2-15.2) % Plt Count 83 L (140-440) K/mm3 Seg Neuts % (Manual) 87.0 H (40.0-70.0) % Lymphocytes % (Manual) 3.0 L (13.4-35.0) % Seg Neutrophils # Man 14.4 H (1.8-7.7) K/mm3 Lymphocytes # (Manual) 0.5 L (1.2-5.4) K/mm3 Chloride (98-107) mmol/L Carbon Dioxide (22-30) mmol/L BUN (9-20) mg/dL Creatinine (0.8-1.5) mg/dL Glucose (75-100) mg/dL POC Glucose 117 H 142 H (70-105) Calcium (8.4-10.2) mg/dL 10/28/16 10/28/16 Range/Units 05:45 11:44 WBC (4.5-11.0) K/mm3 RBC (3.65-5.03) M/mm3 Hgb (11.8-15.2) gm/dl Hct (35.5-45.6) % RDW (13.2-15.2) % Plt Count (140-440) K/mm3 Seg Neuts % (Manual) (40.0-70.0) % Lymphocytes % (Manual) (13.4-35.0) % Seg Neutrophils # Man (1.8-7.7) K/mm3 Lymphocytes # (Manual) (1.2-5.4) K/mm3 Chloride 94.6 L (98-107) mmol/L Carbon Dioxide 21 L (22-30) mmol/L BUN 90 H (9-20) mg/dL Creatinine 3.9 H (0.8-1.5) mg/dL Glucose 152 H (75-100) mg/dL POC Glucose 151 H (70-105) Calcium 6.9 L (8.4-10.2) mg/dL Assessment and Plan - Patient Problems (1) Anemia Current Visit: Yes Status: Acute Qualifiers: Anemia type: unspecified type Iron deficiency anemia type: I Vitamin B12 deficiency anemia type: V Folate deficiency anemia type: F Bone marrow failure anemia type: B Hemolytic anemia type: H Other causes of anemia: O Qualified Code(s): D64.9 - Anemia, unspecified Plan to address problem: post transfusion. remains stable. (2) Leucopenia Current Visit: Yes Status: Acute Qualifiers: Leukopenia type: unspecified Neutropenia type: N Qualified Code(s): D72.819 - Decreased white blood cell count, unspecified Plan to address problem: same as above. resolved. Same as above (3) Renal failure Current Visit: Yes Status: Acute Qualifiers: Renal failure chronicity: acute Acute renal failure type: unspecified Chronic kidney disease stage: C Qualified Code(s): N17.9 - Acute kidney failure, unspecified Plan to address problem: See w/up, and renal service. see notes Follow iv therapy nurse.
[2016-10-29] MEDS: NOVOLOG SUB-Q SCH ×4 (00:08→17:29)
[2016-10-29] MEDS: FLAGYL FEEDTUBE SCH ×3 (05:31→19:48)
[2016-10-29 07:00] LABS: Hematocrit 29.1 % (35.5-45.6); Hemoglobin 9.6 gm/dl (11.8-15.2); Mean Corpuscular HGB Conc 33 % (32-34); Mean Corpuscular Hemoglobin 30 pg (28-32); Mean Corpuscular Volume 92 fl (84-94); Red Blood Count 3.15 M/mm3 (3.65-5.03); Red Cell Distribution Width 17.9 % (13.2-15.2); White Blood Count 14.1 K/mm3 (4.5-11.0)
[2016-10-29 07:01] LABS: Platelet Count 73 K/mm3 (140-440)
[2016-10-29 07:27] LABS: BUN/Creatinine Ratio 21.48; Calcium 7.4 mg/dL (8.4-10.2); Chloride 101.2 mmol/L (98-107); Potassium 4.1 mmol/L (3.6-5.0)
[2016-10-29] MEDS: LOPRESSOR PO SCH ×2 (09:44→23:20)
[2016-10-29] MEDS: PEPCID PO SCH (09:45)
--- NOTE | 2016-10-29 10:08 | Progress Note ---
Assessment and Plan (1) Renal failure Current Visit: Yes Status: Acute Qualifiers: Renal failure chronicity: acute Acute renal failure type: unspecified Chronic kidney disease stage: C Qualified Code(s): N17.9 - Acute kidney failure, unspecified Plan to address problem: no indicationf or HD today will asses dialysis needs daily and monitor renal recovery closely Strict I/O monitoring Avoid Nephrotoxic agents Renally dose medications Obtain daily weights Monitor renal function daily (2) Acute respiratory failure Current Visit: Yes Status: Acute Qualifiers: Respiratory failure complication: hypoxia Qualified Code(s): J96.01 - Acute respiratory failure with hypoxia Plan to address problem: Intubated as per Pulmonary (3) Anemia Current Visit: Yes Status: Acute Qualifiers: Anemia type: unspecified type Iron deficiency anemia type: I Vitamin B12 deficiency anemia type: V Folate deficiency anemia type: F Bone marrow failure anemia type: B Hemolytic anemia type: H Other causes of anemia: O Qualified Code(s): D64.9 - Anemia, unspecified Plan to address problem: Monitor labs and transfuse as needed Hematology onboard (4) Thrombocytopenia Current Visit: Yes Status: Acute Plan to address problem: [id number] is pending Hematology onboard (5) Atrial fibrillation Current Visit: Yes Status: Acute Qualifiers: Atrial fibrillation type: A Plan to address problem: followed by cardiology, on BB Subjective Date of service: 10/29/16 Principal diagnosis: Sepsis Syndrome; MAHA; RAJESH; CHF; TTP Interval history: intubated, does not follow commands Objective - Vital Signs Vital signs: Vital Signs - 12hr 10/28/16 10/28/16 10/28/16 22:07 22:30 23:00 Temperature Pulse Rate 135 H 139 H 84 Pulse Rate [ From Monitor] Pulse Rate [ Left Dorsalis Pedis] Pulse Rate [ Right Dorsalis Pedis] Pulse Rate [ Right Radial] Respiratory 25 H 20 Rate Blood Pressure 110/72 102/72 125/88 O2 Sat by Pulse 100 99 Oximetry 10/28/16 10/28/16 10/29/16 23:30 23:54 00:00 Temperature 99.7 F H Pulse Rate 85 84 Pulse Rate [ 85 From Monitor] Pulse Rate [ 85 Left Dorsalis Pedis] Pulse Rate [ 85 Right Dorsalis Pedis] Pulse Rate [ 85 Right Radial] Respiratory 22 19 19 Rate Blood Pressure 125/88 126/82 O2 Sat by Pulse 99 98 Oximetry 10/29/16 10/29/16 10/29/16 00:26 00:30 01:00 Temperature 99.7 F H Pulse Rate 85 77 Pulse Rate [ From Monitor] Pulse Rate [ Left Dorsalis Pedis] Pulse Rate [ Right Dorsalis Pedis] Pulse Rate [ Right Radial] Respiratory 19 18 Rate Blood Pressure 126/82 110/71 O2 Sat by Pulse 98 97 Oximetry 10/29/16 10/29/16 10/29/16 01:30 02:00 02:30 Temperature Pulse Rate 76 77 77 Pulse Rate [ From Monitor] Pulse Rate [ Left Dorsalis Pedis] Pulse Rate [ Right Dorsalis Pedis] Pulse Rate [ Right Radial] Respiratory 18 18 18 Rate Blood Pressure 110/71 104/71 104/71 O2 Sat by Pulse 99 98 99 Oximetry 10/29/16 10/29/16 10/29/16 03:00 03:30 04:00 Temperature 97.4 F L Pulse Rate 83 76 74 Pulse Rate [ From Monitor] Pulse Rate [ Left Dorsalis Pedis] Pulse Rate [ Right Dorsalis Pedis] Pulse Rate [ Right Radial] Respiratory 19 18 18 Rate Blood Pressure 124/84 124/84 104/67 O2 Sat by Pulse 98 99 99 Oximetry 10/29/16 10/29/16 10/29/16 04:30 04:51 05:00 Temperature Pulse Rate 74 74 90 Pulse Rate [ From Monitor] Pulse Rate [ Left Dorsalis Pedis] Pulse Rate [ Right Dorsalis Pedis] Pulse Rate [ Right Radial] Respiratory 18 25 H Rate Blood Pressure 104/67 104/67 133/101 O2 Sat by Pulse 99 99 97 Oximetry 10/29/16 10/29/16 10/29/16 05:30 06:00 06:30 Temperature Pulse Rate 78 73 72 Pulse Rate [ From Monitor] Pulse Rate [ Left Dorsalis Pedis] Pulse Rate [ Right Dorsalis Pedis] Pulse Rate [ Right Radial] Respiratory 19 18 18 Rate Blood Pressure 133/101 117/79 117/79 O2 Sat by Pulse 99 97 99 Oximetry 10/29/16 10/29/16 10/29/16 07:00 07:30 08:00 Temperature 98.4 F Pulse Rate 73 75 70 Pulse Rate [ 72 From Monitor] Pulse Rate [ Left Dorsalis Pedis] Pulse Rate [ Right Dorsalis Pedis] Pulse Rate [ Right Radial] Respiratory 18 18 18 Rate Blood Pressure 120/81 120/81 115/76 O2 Sat by Pulse 98 100 98 Oximetry 10/29/16 10/29/16 10/29/16 08:30 09:00 09:30 Temperature Pulse Rate 77 78 77 Pulse Rate [ From Monitor] Pulse Rate [ Left Dorsalis Pedis] Pulse Rate [ Right Dorsalis Pedis] Pulse Rate [ Right Radial] Respiratory 18 18 18 Rate Blood Pressure 115/76 127/82 127/82 O2 Sat by Pulse 99 98 99 Oximetry 10/29/16 10/29/16 09:44 09:54 Temperature Pulse Rate 77 Pulse Rate [ From Monitor] Pulse Rate [ Left Dorsalis Pedis] Pulse Rate [ Right Dorsalis Pedis] Pulse Rate [ Right Radial] Respiratory Rate Blood Pressure 127/82 O2 Sat by Pulse 99 Oximetry - General Appearance General appearance: intubated EENT: ATNC, PERRL, mucous membranes dry Neck: no JVD, no carotid bruit Respiratory: Present: Rales, Decreased Breath Sounds Cardiology: irregular, S1S2 Gastrointestinal: normoactive bowel sounds, no tenderness, no distended Integumentary: no rash, warm and dry Neurologic: other (does not follow commands) Musculoskeletal: other (1-2+ pitting edema in BLE) - Lab 10/29/16 06:15 10/29/16 06:15 Most recent lab results Calcium 7.4 mg/dL (8.4-10.2) L 10/29/16 06:15 Phosphorus 5.00 mg/dL (2.5-4.5) H 10/29/16 06:15
--- NOTE | 2016-10-29 10:29 | Progress Note ---
Assessment and Plan Assessment and plan: Patient is a 61-year-old man without known past medical history who presented to the emergency department [facility] on 10/13/16, complaining of bilateral leg swelling that worsened for the last 4 days. He was found to have severe metabolic acidosis, creatinine was 14.5 with hyperkalemia, emergent Hemodialysis was done. He was also found to have severe pancytopenia, thrombocytopenia and Dr. 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 He was on bipap and was intubated 10/16/16, details are not readily available on why he needed to be intubated, no nursing note for 10/16. -Acute encephalopathy, not sedated, see Neurologist note below -AFIB WITH RVR: Cardiology is following -Group B strep bacteremia: JONATHAN pending, but plt count too low, probably when plt count over 50k -Acute Respiratory failure with hypoxia, intubated: continue mv -Pancytopenia [leukopenia, severe anemia, Woresening thrombocytopenia] heme/onc is following, s/p PLASMAPHERSIS, s/p PRBC transfusion, s/p plt -ARF, renal tubular stasis, poa -secondary coagulopathy -Lactic acidosis -Probable TTP, await [id number] results -hypoglycemia -Acute systolic congestive heart failure EF around 30% -SEVERE SEPSIS, poa per Neurologist, Dr. Bernardo "61 YO M Hx HTN admitted 10/13 w/ sepsis w/ bacteremia, severe metabolic acidosis , RAJESH requiring emergent HD, severe pancytopenia, ? DIC vs. HUS vs. TTP on Plasmapheresis and acute respiratory failure with hypoxia s/p intubation. There has not been cleared documented episode of cardiac arrest but pt was hypotensive during admission. On exam eyes open to stimlation, stuporous MS poor concentration, paucity of speech, intact brainstem reflexes but not able to follow midline/peripheral commands w/ grossly intact motor-sensory exam as withdraws from pain in UE but triple flexion LE but otherwise grossly intact symmetric neurologic exam, consistent with toxic metabolic infectious derangement as the etiology for neurologic decompensation. CTH 10/13 vague L anterior internal capsule hypodensities and chronic lacunes L brainstem and L periventricular white matter. B12/TSH/NH4 normal. 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 No Stone dispensed d/t RAJESH. TTE w/o endocarditis/thrombus. Recommendations: 1. Check f/u CTH and CTA H/N 2. Cont Infectious work up/medical management for UTI, PNA, cellulitis, bacteremia, etc. 3. Avoid hyponatremia, hypo/hyper-calcemia, hypo/hyperglycemia, acidosis, hypoxia/hypoxemia, hypercarbia/hypercapnia 4. Avoid institution of any psychoactive medications (e.g. antihistamines, anticholinergics, BZD, hypnotics, opiates) as able unless low doses of low potency antipsychotic needed for behavioral issues complicating medical care 5. Thiamine/Folate/CIWA protocol accordingly for any hx obtained to suggest EtOH withdrawal 6. Cont home meds-there is no neurologic indication to change CTH confirms multifocal hemorrhagic lesions but no midline shift/compression of brain structures/significant mass effect and is actually improved from prior MRI. CTA H/N w/o vascular lesion. JONATHAN w/o endocarditis or source of emboli. 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 Recs: 1. Avoid all blood thinners until hemorrhage stable 2. BP control: goal < 140/90 using prn Labetalol/Hydralyzine/Nicardipine. Cont home BP med. 3. Cont Infectious work up/medical management for UTI, PNA, cellulitis, bacteremia, etc. 3. Avoid hyponatremia, hypo/hyper-calcemia, hypo/hyperglycemia, acidosis, hypoxia/hypoxemia, hypercarbia/hypercapnia 4. Avoid institution of any psychoactive medications (e.g. antihistamines, anticholinergics, BZD, hypnotics, opiates) as able unless low doses of low potency antipsychotic needed for behavioral issues complicating medical care 5. Thiamine/Folate/CIWA protocol accordingly for any hx obtained to suggest EtOH withdrawal 6. Cont home meds-there is no neurologic indication to change 7. DVT Prophylaxis: SCDs/TEDs 8. Dispo: PT/OT/CM evaluations" History Interval history: Patient seen and examined. Follow up on respiratory failure, patient still intubated. Overnight uneventful. No cp, sob, n/v or severe headaches. Imaging, old records, testing, labs, nursing notes reviewed. Hospitalist Physical - Physical exam Narrative exam: GEN: Critically ill intubated but not sedated HEENT: Eyes are floating, ET tube in place CVS: irregular, NORMAL S1S2 LUNGS/CHEST: NORMAL CHEST EXPANSION B, GOOD AIR ENTRY B ABD: SOFT, POSITIVE BOWEL SOUNDS, NONDISTENDED, NO REBOUND OR GUARDING NEURO: CN 2-12 GROSSLY INTACT, he doesn't follow commands PSY: Unresponsive - Constitutional Vitals: Temp Pulse Resp BP Pulse Ox 98.4 F 77 18 127/82 99 10/29/16 08:00 10/29/16 09:44 10/29/16 09:30 10/29/16 09:44 10/29/16 09:54 General appearance: Present: no acute distress Results - Labs CBC & Chem 7: 10/29/16 06:15 10/29/16 06:15 Labs: Laboratory Last Values WBC 14.1 K/mm3 (4.5-11.0) H 10/29/16 06:15 RBC 3.15 M/mm3 (3.65-5.03) L 10/29/16 06:15 Hgb 9.6 gm/dl (11.8-15.2) L 10/29/16 06:15 Hct 29.1 % (35.5-45.6) L 10/29/16 06:15 MCV 92 fl (84-94) 10/29/16 06:15 MCH 30 pg (28-32) 10/29/16 06:15 MCHC 33 % (32-34) 10/29/16 06:15 RDW 17.9 % (13.2-15.2) H 10/29/16 06:15 Plt Count 73 K/mm3 (140-440) L 10/29/16 06:15 Lymph % (Auto) [employer] 10/14/16 04:34 [place] % (Auto) [employer] 10/14/16 04:34 Eos % (Auto) [employer] 10/14/16 04:34 Baso % (Auto) [employer] 10/14/16 04:34 Lymph # [employer] 10/14/16 04:34 [place] # [employer] 10/14/16 04:34 Eos # [employer] 10/14/16 04:34 Baso # [employer] 10/14/16 04:34 Add Manual Diff Complete 10/28/16 05:45 Total Counted 100 10/28/16 05:45 Seg Neutrophils % [employer] 10/29/16 06:15 Seg Neuts % (Manual) 87.0 % (40.0-70.0) H 10/28/16 05:45 Band Neutrophils % 5.0 % 10/28/16 05:45 Lymphocytes % (Manual) 3.0 % (13.4-35.0) L 10/28/16 05:45 Reactive Lymphs % (Man) 0 % 10/28/16 05:45 Monocytes % (Manual) 5.0 % (0.0-7.3) 10/28/16 05:45 Eosinophils % (Manual) 1.0 % (0.0-4.3) 10/27/16 04:10 Basophils % (Manual) 0 % (0.0-1.8) 10/27/16 04:10 Metamyelocytes % 0 % 10/28/16 05:45 Myelocytes % 0 % 10/28/16 05:45 Promyelocytes % 0 % 10/28/16 05:45 Blast Cells % 0 % 10/28/16 05:45 Nucleated RBC % Not Reportable 10/28/16 05:45 Seg Neutrophils # [employer] 10/14/16 04:34 Seg Neutrophils # Man 14.4 K/mm3 (1.8-7.7) H 10/28/16 05:45 Band Neutrophils # 0.8 K/mm3 10/28/16 05:45 Lymphocytes # (Manual) 0.5 K/mm3 (1.2-5.4) L 10/28/16 05:45 Abs React Lymphs (Man) 0.0 K/mm3 10/28/16 05:45 Monocytes # (Manual) 0.8 K/mm3 (0.0-0.8) 10/28/16 05:45 Eosinophils # (Manual) 0.0 K/mm3 (0.0-0.4) 10/28/16 05:45 Basophils # (Manual) 0.0 K/mm3 (0.0-0.1) 10/28/16 05:45 Metamyelocytes # 0.0 K/mm3 10/28/16 05:45 Myelocytes # 0.0 K/mm3 10/28/16 05:45 Promyelocytes # 0.0 K/mm3 10/28/16 05:45 Blast Cells # 0.0 K/mm3 10/28/16 05:45 WBC Morphology Not Reportable 10/28/16 05:45 Hypersegmented Neuts Not Reportable 10/28/16 05:45 Hyposegmented Neuts Not Reportable 10/28/16 05:45 Hypogranular Neuts Not Reportable 10/28/16 05:45 Smudge Cells Not Reportable 10/28/16 05:45 Toxic Granulation Not Reportable 10/28/16 05:45 Toxic Vacuolation Not Reportable 10/28/16 05:45 Dohle Bodies Not Reportable 10/28/16 05:45 Pelger-Huet Anomaly Not Reportable 10/28/16 05:45 Madhu Rods Not Reportable 10/28/16 05:45 Platelet Estimate Appe 10/28/16 05:45 Clumped Platelets Not Reportable 10/28/16 05:45 Plt Clumps, EDTA Not Reportable 10/28/16 05:45 Large Platelets Few 10/28/16 05:45 Giant Platelets Not Reportable 10/28/16 05:45 Platelet Satelliting Not Reportable 10/28/16 05:45 Plt Morphology Comment Not Reportable 10/28/16 05:45 RBC Morphology Not Reportable 10/28/16 05:45 Dimorphic RBCs Not Reportable 10/28/16 05:45 Polychromasia Not Reportable 10/28/16 05:45 Hypochromasia Not Reportable 10/28/16 05:45 Poikilocytosis Not Reportable 10/28/16 05:45 Basophilic Stippling Rare 10/21/16 10:30 Anisocytosis 1+ 10/28/16 05:45 Microcytosis Not Reportable 10/28/16 05:45 Macrocytosis 1+ 10/28/16 05:45 Spherocytes Not Reportable 10/28/16 05:45 Pappenheimer Bodies Not Reportable 10/28/16 05:45 Sickle Cells Not Reportable 10/28/16 05:45 Target Cells Rare 10/28/16 05:45 Tear Drop Cells Not Reportable 10/28/16 05:45 Ovalocytes Not Reportable 10/28/16 05:45 Stomatocytes Few 10/28/16 05:45 Helmet Cells Not Reportable 10/28/16 05:45 [place] Bodies Not Reportable 10/28/16 05:45 [place] Rings Not Reportable 10/28/16 05:45 Sabrina Cells Not Reportable 10/28/16 05:45 Bite Cells Not Reportable 10/28/16 05:45 Crenated Cell Not Reportable 10/28/16 05:45 Elliptocytes Not Reportable 10/28/16 05:45 Acanthocytes (Spur) Not Reportable 10/28/16 05:45 Rouleaux Not Reportable 10/28/16 05:45 Hemoglobin C Crystals Not Reportable 10/28/16 05:45 Schistocytes Not Reportable 10/28/16 05:45 Malaria parasites Not Reportable 10/28/16 05:45 ESR 77 mm/Hr (0-20) 10/14/16 04:34 Pal Bodies Not Reportable 10/28/16 05:45 Haptoglobin <15 mg/dL (43-212) L 10/15/16 12:00 Hem Pathologist Commnt No 10/28/16 05:45 PT 23.0 Sec. (12.2-14.9) H 10/27/16 08:14 INR 2.03 (0.87-1.13) H 10/27/16 08:14 Fibrinogen 557 mg/dl (211-480) H 10/14/16 09:58 Lupus Anticoagulant see below H 10/14/16 03:00 LA PTT Baseline 55 sec (<=40) H 10/14/16 03:00 dRVVT Confirm Interp Negative (Negative) 10/14/16 03:00 POC ABG pH 7.410 (7.35-7.45) 10/28/16 12:51 POC ABG pCO2 37.8 (35-45) 10/28/16 12:51 POC ABG pO2 93 (80-105) 10/28/16 12:51 POC ABG HCO3 24.0 10/28/16 12:51 POC ABG Total CO2 25 10/28/16 12:51 POC ABG O2 Sat 97 10/28/16 12:51 POC ABG Base Excess -1 10/28/16 12:51 FiO2 25 % 10/28/16 12:51 Sodium 143 mmol/L (137-145) 10/29/16 06:15 Potassium 4.1 mmol/L (3.6-5.0) 10/29/16 06:15 Chloride 101.2 mmol/L (98-107) 10/29/16 06:15 Carbon Dioxide 23 mmol/L (22-30) 10/29/16 06:15 Anion Gap 23 mmol/L 10/29/16 06:15 BUN 58 mg/dL (9-20) H 10/29/16 06:15 Creatinine 2.7 mg/dL (0.8-1.5) H 10/29/16 06:15 Estimated GFR 24 ml/min 10/29/16 06:15 BUN/Creatinine Ratio 21.48 % 10/29/16 06:15 Glucose 146 mg/dL (75-100) H 10/29/16 06:15 POC Glucose 153 (70-105) H 10/29/16 04:53 Lactic Acid 3.10 mmol/L (0.7-2.0) H* 10/24/16 18:40 Uric Acid 8.0 mg/dL (3.5-7.6) H 10/14/16 03:00 Calcium 7.4 mg/dL (8.4-10.2) L 10/29/16 06:15 Phosphorus 5.00 mg/dL (2.5-4.5) H 10/29/16 06:15 Iron 146 ug/dL (49-181) 10/15/16 05:35 TIBC 166 mcg/dL (250-450) L 10/15/16 05:35 Erythropoietin 148.2 mIU/mL (2.6-18.5) H 10/19/16 14:15 Ferritin 9562.0 ng/mL (13.0-400.0) H 10/15/16 05:35 Total Bilirubin 2.10 mg/dL (0.1-1.2) H 10/24/16 07:00 Direct Bilirubin 1.1 mg/dL (0-0.2) H 10/14/16 09:58 Indirect Bilirubin 0.2 mg/dL 10/14/16 09:58 AST 68 units/L (5-40) H 10/24/16 07:00 ALT 46 units/L (7-56) 10/24/16 07:00 Alkaline Phosphatase 224 units/L (35-129) H 10/24/16 07:00 Ammonia 32.0 umol/L (25-60) 10/19/16 14:15 Lactate Dehydrogenase 3871 units/L (91-180) H 10/15/16 05:35 Troponin T 0.079 ng/mL (0.00-0.029) H 10/13/16 10:14 C-Reactive Protein 7.40 mg/dL (0.00-1.30) H 10/24/16 16:30 NT-Pro-B Natriuret Pep > 86155 pg/mL (0-900) H 10/13/16 10:14 Serum Total Protein 5.6 g/dL (6.1-8.1) L 10/13/16 14:50 Total Protein 4.8 g/dL (6.3-8.2) L 10/24/16 07:00 Albumin 2.3 g/dL (3.9-5) L 10/24/16 07:00 Albumin/Globulin Ratio 0.9 % 10/24/16 07:00 Xjzij-5-Opnvltrnm 0.5 g/dL (0.2-0.3) H 10/13/16 14:50 Ipfri-6-Lezsphhmf 0.6 g/dL (0.5-0.9) 10/13/16 14:50 Beta Globulins 0.3 g/dL (0.2-0.5) 10/13/16 14:50 Gamma Globulins 1.7 g/dL (0.8-1.7) 10/13/16 14:50 Abnorm Protein Band 1 1.4 g/dL H 10/13/16 14:50 PEP Interpretation see below H 10/13/16 14:50 Triglycerides 119 mg/dL (2-149) 10/13/16 10:14 Cholesterol 71 mg/dL (50-199) 10/13/16 10:14 LDL Cholesterol Direct 41 mg/dL (50-130) L 10/13/16 10:14 HDL Cholesterol 7 mg/dL (40-59) L 10/13/16 10:14 Cholesterol/HDL Ratio 10.14 % 10/13/16 10:14 Lipase 21 units/L (13-60) 10/15/16 05:35 Vitamin B12 893.9 pg/mL (211-911) 10/14/16 03:00 TSH 0.526 mlU/mL (0.270-4.200) 10/19/16 14:15 Random Vancomycin 18.7 ug/mL (0-40.0) 10/28/16 05:45 IgG 1040 mg/dL (694-1618) 10/19/16 14:15 IgA 149 mg/dL (81-463) 10/19/16 14:15 IgM 53 mg/dL (48-271) 10/19/16 14:15 XU Screen Negative (Negative) 10/13/16 14:50 Proteinase 3 (PR3) Ab <1.0 AI (<1.0) 10/13/16 14:50 Myeloperoxidase Ab <1.0 AI (<1.0) 10/13/16 14:50 Glomerular Base Mem IgG <1.0 AI (<1.0) 10/13/16 14:50 Complement C3 101 mg/dL (90-180) 10/13/16 14:50 Complement C4 16 mg/dL (16-47) 10/13/16 14:50 Hep Bs Antigen Non-reactive (Negative) 10/13/16 14:50 Hepatitis C Antibody Non-reactive (NonReactive) 10/13/16 14:50 HIV 1&2 Antibody Rapid Non react (Non React) 10/13/16 14:50 HIV P24 Antigen Non react (Non React) 10/13/16 14:50 Schistocytes Smear None seen 10/15/16 12:00 Flow Intrp 16+ Markers Scanned into [facility] rec 10/14/16 11:30 Flow Cytometry Interp Scanned into [facility] rec 10/14/16 11:30 Blood Type O POSITIVE 10/24/16 11:45 Antibody Screen TNR 10/24/16 11:45 MADIHA Antibody Screen Negative 10/24/16 11:45 Direct Antiglob Test Negative 10/14/16 03:00 ELAINE, Poly Interpret Negative 10/14/16 03:00 Crossmatch See Detail 10/24/16 11:45
[2016-10-29 12:11] LABS: Anisocytosis 1+; Basophils % (Manual) 0 % (0.0-1.8); Blastocytes % (Manual) 0 %; Eosinophils % (Manual) 0 % (0.0-4.3); Macrocytosis 1+
[2016-10-29 12:12] LABS: Diff Status Complete; Platelet Estimate Consistent w Auto
--- NOTE | 2016-10-29 14:17 | Progress Note ---
Assessment and Plan Discussed a Tracheostomy and PEG with the patient's . Risks, benefits and alternatives were discussed. Risks include but are not limited to bleeding, infection, injury to adjacent organs, loss of airway, problems from the tubes, need for additional surgery, respiratory arrest and . Her questions were answered until she verbalized she understood and did not have any more questions. She wants to think about what I have told her and discuss it with her daughters before making any decisions with regards to a Tracheostomy and PEG. Will follow. Subjective Date of service: 10/29/16 Patient Reports: Positive: no new complaints Objective Vital Signs - 12hr 10/29/16 10/29/16 10/29/16 02:30 03:00 03:30 Temperature Pulse Rate 77 83 76 Pulse Rate [ From Monitor] Respiratory 18 19 18 Rate Blood Pressure 104/71 124/84 124/84 O2 Sat by Pulse 99 98 99 Oximetry 10/29/16 10/29/16 10/29/16 04:00 04:30 04:51 Temperature 97.4 F L Pulse Rate 74 74 74 Pulse Rate [ From Monitor] Respiratory 18 18 Rate Blood Pressure 104/67 104/67 104/67 O2 Sat by Pulse 99 99 99 Oximetry 10/29/16 10/29/16 10/29/16 05:00 05:30 06:00 Temperature Pulse Rate 90 78 73 Pulse Rate [ From Monitor] Respiratory 25 H 19 18 Rate Blood Pressure 133/101 133/101 117/79 O2 Sat by Pulse 97 99 97 Oximetry 10/29/16 10/29/16 10/29/16 06:30 07:00 07:30 Temperature Pulse Rate 72 73 75 Pulse Rate [ From Monitor] Respiratory 18 18 18 Rate Blood Pressure 117/79 120/81 120/81 O2 Sat by Pulse 99 98 100 Oximetry 10/29/16 10/29/16 10/29/16 08:00 08:30 09:00 Temperature 98.4 F Pulse Rate 70 77 78 Pulse Rate [ 72 From Monitor] Respiratory 18 18 18 Rate Blood Pressure 115/76 115/76 127/82 O2 Sat by Pulse 98 99 98 Oximetry 10/29/16 10/29/16 10/29/16 09:30 09:44 09:54 Temperature Pulse Rate 77 77 Pulse Rate [ From Monitor] Respiratory 18 Rate Blood Pressure 127/82 127/82 O2 Sat by Pulse 99 99 Oximetry 10/29/16 10/29/16 10/29/16 10:00 10:30 11:00 Temperature Pulse Rate 71 73 72 Pulse Rate [ From Monitor] Respiratory 15 18 17 Rate Blood Pressure 121/78 126/83 O2 Sat by Pulse 98 99 Oximetry 10/29/16 10/29/16 10/29/16 11:17 11:30 12:00 Temperature 98.6 F Pulse Rate 73 74 80 Pulse Rate [ From Monitor] Respiratory 19 22 Rate Blood Pressure 126/83 126/83 131/89 O2 Sat by Pulse 98 99 98 Oximetry 10/29/16 10/29/16 10/29/16 12:30 13:00 13:30 Temperature Pulse Rate 78 76 77 Pulse Rate [ From Monitor] Respiratory 20 18 18 Rate Blood Pressure 131/89 116/79 116/79 O2 Sat by Pulse 99 97 98 Oximetry 10/29/16 14:00 Temperature Pulse Rate 79 Pulse Rate [ From Monitor] Respiratory 20 Rate Blood Pressure 128/84 O2 Sat by Pulse 98 Oximetry - General physical appearance other (Remains intubated and on tube feeds) - Labs 10/29/16 06:15 10/29/16 06:15 Diabetes panel 10/29/16 Range/Units 06:15 Sodium 143 (137-145) mmol/L Potassium 4.1 (3.6-5.0) mmol/L Chloride 101.2 (98-107) mmol/L Carbon Dioxide 23 (22-30) mmol/L BUN 58 H (9-20) mg/dL Creatinine 2.7 H (0.8-1.5) mg/dL Glucose 146 H (75-100) mg/dL Calcium 7.4 L (8.4-10.2) mg/dL Calcium panel 10/29/16 Range/Units 06:15 Calcium 7.4 L (8.4-10.2) mg/dL Phosphorus 5.00 H (2.5-4.5) mg/dL Pituitary panel 10/29/16 Range/Units 06:15 Sodium 143 (137-145) mmol/L Potassium 4.1 (3.6-5.0) mmol/L Chloride 101.2 (98-107) mmol/L Carbon Dioxide 23 (22-30) mmol/L BUN 58 H (9-20) mg/dL Creatinine 2.7 H (0.8-1.5) mg/dL Glucose 146 H (75-100) mg/dL Calcium 7.4 L (8.4-10.2) mg/dL Adrenal panel 10/29/16 Range/Units 06:15 Sodium 143 (137-145) mmol/L Potassium 4.1 (3.6-5.0) mmol/L Chloride 101.2 (98-107) mmol/L Carbon Dioxide 23 (22-30) mmol/L BUN 58 H (9-20) mg/dL Creatinine 2.7 H (0.8-1.5) mg/dL Glucose 146 H (75-100) mg/dL Calcium 7.4 L (8.4-10.2) mg/dL
--- NOTE | 2016-10-29 14:39 | Progress Note ---
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) - continue HD/UF per nephrology recs - follow I's and O's (no urine in do bag) - correct electrolytes prn - avoid nephrotoxins - per nephrology otherwise (3) Metabolic acidosis Current Visit: Yes Status: Acute Plan to address problem: - mixed etiology - Lactic Acidosis component - sepsis may have been driving force for that - RAJESH component - continue HD/UF per nephrology prescription - Anti-infectives per ID recs - lactate improved (4) CHF (congestive heart failure) Current Visit: Yes Status: Acute Qualifiers: Congestive heart failure type: C Congestive heart failure chronicity: C Plan to address problem: - ECHO consistent with possible infiltrating disease - cardiology consulted - EF 30& - s/p volume resuscitation for sepsis - per cardiology otherwise - JONATHAN negative (5) Pancytopenia Current Visit: Yes Status: Acute Plan to address problem: - hematology on case - continuing plasmapheresis - may need bone marrow evaluation - platelet count continues trending slowly up now (83k today) (6) Acute encephalopathy Current Visit: Yes Status: Acute Plan to address problem: - CT brain negative - likely toxic-metabolic encephalopathy - MRI abnormal - neurology evaluation ongoing - following clinically (7) Hypoglycemia Current Visit: Yes Status: Acute Plan to address problem: - improved - suspect sepsis related element - will continue systemic steroids but taper - also continue enteral nutrition - glycemic control via SSI at this point (8) Sepsis syndrome Current Visit: Yes Status: Acute Plan to address problem: - s/p antibiotic course - ID on case - CRP and lactate much improved - JONATHAN negative - following clinically - c-diff assay negative - Anti-infectives per ID recs (9) Discharge planning issues Current Visit: Yes Status: Acute Plan to address problem: - he remains critically ill on life sustaining interventions including MVS and at risk for further deterioration including ...34' CCT Subjective Date of service: 10/29/16 Principal diagnosis: Sepsis Syndrome; MAHA; RAJESH; CHF; TTP Interval history: Seen and examined at bedside; 24 hour events reviewed; nursing and respiratory care staff consulted; no adverse overnight events reported to me; AMS is persistent; family contemplating decisions on trach and PEG; no gross bleeding and no new seizure activity Objective Vital Signs - 12hr 10/29/16 10/29/16 10/29/16 03:00 03:30 04:00 Temperature 97.4 F L Pulse Rate 83 76 74 Pulse Rate [ From Monitor] Respiratory 19 18 18 Rate Blood Pressure 124/84 124/84 104/67 O2 Sat by Pulse 98 99 99 Oximetry 10/29/16 10/29/16 10/29/16 04:30 04:51 05:00 Temperature Pulse Rate 74 74 90 Pulse Rate [ From Monitor] Respiratory 18 25 H Rate Blood Pressure 104/67 104/67 133/101 O2 Sat by Pulse 99 99 97 Oximetry 10/29/16 10/29/16 10/29/16 05:30 06:00 06:30 Temperature Pulse Rate 78 73 72 Pulse Rate [ From Monitor] Respiratory 19 18 18 Rate Blood Pressure 133/101 117/79 117/79 O2 Sat by Pulse 99 97 99 Oximetry 10/29/16 10/29/16 10/29/16 07:00 07:30 08:00 Temperature 98.4 F Pulse Rate 73 75 70 Pulse Rate [ 72 From Monitor] Respiratory 18 18 18 Rate Blood Pressure 120/81 120/81 115/76 O2 Sat by Pulse 98 100 98 Oximetry 10/29/16 10/29/16 10/29/16 08:30 09:00 09:30 Temperature Pulse Rate 77 78 77 Pulse Rate [ From Monitor] Respiratory 18 18 18 Rate Blood Pressure 115/76 127/82 127/82 O2 Sat by Pulse 99 98 99 Oximetry 10/29/16 10/29/16 10/29/16 09:44 09:54 10:00 Temperature Pulse Rate 77 71 Pulse Rate [ From Monitor] Respiratory 15 Rate Blood Pressure 127/82 121/78 O2 Sat by Pulse 99 98 Oximetry 10/29/16 10/29/16 10/29/16 10:30 11:00 11:17 Temperature Pulse Rate 73 72 73 Pulse Rate [ From Monitor] Respiratory 18 17 Rate Blood Pressure 126/83 126/83 O2 Sat by Pulse 99 98 Oximetry 10/29/16 10/29/16 10/29/16 11:30 12:00 12:30 Temperature 98.6 F Pulse Rate 74 80 78 Pulse Rate [ From Monitor] Respiratory 19 22 20 Rate Blood Pressure 126/83 131/89 131/89 O2 Sat by Pulse 99 98 99 Oximetry 10/29/16 10/29/16 10/29/16 13:00 13:30 14:00 Temperature Pulse Rate 76 77 79 Pulse Rate [ From Monitor] Respiratory 18 18 20 Rate Blood Pressure 116/79 116/79 128/84 O2 Sat by Pulse 97 98 98 Oximetry 10/29/16 14:17 Temperature Pulse Rate Pulse Rate [ From Monitor] Respiratory Rate Blood Pressure O2 Sat by Pulse 90 Oximetry Constitutional: no acute distress, lethargic Eyes: non-icteric ENT: oropharynx moist Neck: supple, no lymphadenopathy Effort: normal Ascultation: Bilateral: diminished breath sounds, rales (scant in bases) Cardiovascular: irregular rhythm Gastrointestinal: normoactive bowel sounds, soft, non-tender, non-distended Integumentary: normal Extremities: no cyanosis, pulses normal, no ischemia or petechiae, edema Neurologic: non-focal exam (grossly), pupils equal and round, unable to assess Psychiatric: other (unable to assess) CBC and BMP: 10/29/16 06:15 10/29/16 06:15 ABG, PT/INR, D-dimer: ABG POC ABG pH 7.410 (7.35-7.45) 10/28/16 12:51 POC ABG pCO2 37.8 (35-45) 10/28/16 12:51 POC ABG pO2 93 (80-105) 10/28/16 12:51 POC ABG HCO3 24.0 10/28/16 12:51 POC ABG Total CO2 25 10/28/16 12:51 POC ABG O2 Sat 97 10/28/16 12:51 PT/INR, D-dimer PT 23.0 Sec. (12.2-14.9) H 10/27/16 08:14 INR 2.03 (0.87-1.13) H 10/27/16 08:14 Abnormal lab findings: Abnormal Labs 10/13/16 10/13/16 10/13/16 14:50 21:40 22:05 WBC RBC Hgb Hct MCV MCHC RDW Plt Count Seg Neuts % (Manual) Lymphocytes % (Manual) Nucleated RBC % Seg Neutrophils # Man Lymphocytes # (Manual) Haptoglobin PT INR Fibrinogen Lupus Anticoagulant LA PTT Baseline POC ABG pH POC ABG pCO2 POC ABG pO2 Sodium Potassium Chloride Carbon Dioxide BUN Creatinine Glucose POC Glucose 52 L 43 L Lactic Acid Uric Acid Calcium Phosphorus Iron TIBC Erythropoietin Ferritin Total Bilirubin Direct Bilirubin AST ALT Alkaline Phosphatase Lactate Dehydrogenase C-Reactive Protein Serum Total Protein 5.6 L Total Protein Albumin 2.2 L Lzmqp-4-Wooydjlpz 0.5 H Abnorm Protein Band 1 1.4 H PEP Interpretation see below H Crossmatch 10/13/16 10/14/16 10/14/16 23:18 03:00 03:00 WBC RBC Hgb Hct MCV MCHC RDW Plt Count Seg Neuts % (Manual) Lymphocytes % (Manual) Nucleated RBC % Seg Neutrophils # Man Lymphocytes # (Manual) Haptoglobin PT INR Fibrinogen Lupus Anticoagulant see below H LA PTT Baseline 55 H POC ABG pH POC ABG pCO2 POC ABG pO2 Sodium Potassium Chloride Carbon Dioxide BUN Creatinine Glucose POC Glucose 113 H Lactic Acid Uric Acid Calcium Phosphorus Iron TIBC Erythropoietin Ferritin Total Bilirubin Direct Bilirubin AST ALT Alkaline Phosphatase Lactate Dehydrogenase 406 H C-Reactive Protein Serum Total Protein Total Protein Albumin Dkdee-3-Vnxxlhajp Abnorm Protein Band 1 PEP Interpretation Crossmatch 10/14/16 10/14/16 10/14/16 03:00 03:00 04:34 WBC 1.3 L* RBC 2.33 L Hgb 7.3 L Hct 21.7 L MCV MCHC RDW 19.8 H Plt Count 99 L Seg Neuts % (Manual) Lymphocytes % (Manual) 3.0 L Nucleated RBC % Seg Neutrophils # Man 0.9 L Lymphocytes # (Manual) 0.0 L Haptoglobin PT INR Fibrinogen Lupus Anticoagulant LA PTT Baseline POC ABG pH POC ABG pCO2 POC ABG pO2 Sodium Potassium Chloride Carbon Dioxide 18 L BUN 73 H Creatinine 9.8 H Glucose 59 L POC Glucose Lactic Acid Uric Acid 8.0 H Calcium 8.2 L Phosphorus 6.60 H Iron 13 L TIBC 160 L Erythropoietin Ferritin Total Bilirubin Direct Bilirubin AST ALT Alkaline Phosphatase Lactate Dehydrogenase C-Reactive Protein Serum Total Protein Total Protein Albumin Lyalt-8-Nxnhkdlbf Abnorm Protein Band 1 PEP Interpretation Crossmatch 10/14/16 10/14/16 10/14/16 05:27 06:29 07:34 WBC RBC Hgb Hct MCV MCHC RDW Plt Count Seg Neuts % (Manual) Lymphocytes % (Manual) Nucleated RBC % Seg Neutrophils # Man Lymphocytes # (Manual) Haptoglobin PT INR Fibrinogen Lupus Anticoagulant LA PTT Baseline POC ABG pH POC ABG pCO2 POC ABG pO2 Sodium Potassium Chloride Carbon Dioxide BUN Creatinine Glucose POC Glucose < 40 L 63 L < 40 L Lactic Acid Uric Acid Calcium Phosphorus Iron TIBC Erythropoietin Ferritin Total Bilirubin Direct Bilirubin AST ALT Alkaline Phosphatase Lactate Dehydrogenase C-Reactive Protein Serum Total Protein Total Protein Albumin Xakfe-7-Enepstdqs Abnorm Protein Band 1 PEP Interpretation Crossmatch 10/14/16 10/14/16 10/14/16 09:58 09:58 09:58 WBC RBC Hgb Hct MCV MCHC RDW Plt Count Seg Neuts % (Manual) Lymphocytes % (Manual) Nucleated RBC % Seg Neutrophils # Man Lymphocytes # (Manual) Haptoglobin 218 H PT INR Fibrinogen 557 H Lupus Anticoagulant LA PTT Baseline POC ABG pH POC ABG pCO2 POC ABG pO2 Sodium Potassium Chloride Carbon Dioxide BUN Creatinine Glucose POC Glucose Lactic Acid Uric Acid Calcium Phosphorus Iron TIBC Erythropoietin Ferritin Total Bilirubin 1.30 H Direct Bilirubin 1.1 H AST ALT Alkaline Phosphatase Lactate Dehydrogenase C-Reactive Protein Serum Total Protein Total Protein Albumin Oyrvy-9-Zkewbfkkl Abnorm Protein Band 1 PEP Interpretation Crossmatch 10/14/16 10/14/16 10/14/16 10:57 11:15 12:52 WBC RBC Hgb Hct MCV MCHC RDW Plt Count Seg Neuts % (Manual) Lymphocytes % (Manual) Nucleated RBC % Seg Neutrophils # Man Lymphocytes # (Manual) Haptoglobin PT INR Fibrinogen Lupus Anticoagulant LA PTT Baseline POC ABG pH POC ABG pCO2 POC ABG pO2 Sodium Potassium Chloride Carbon Dioxide BUN Creatinine Glucose POC Glucose < 40 L < 40 L Lactic Acid 9.60 H* Uric Acid Calcium Phosphorus Iron TIBC Erythropoietin Ferritin Total Bilirubin Direct Bilirubin AST ALT Alkaline Phosphatase Lactate Dehydrogenase C-Reactive Protein Serum Total Protein Total Protein Albumin Pfngg-5-Pawaqfogx Abnorm Protein Band 1 PEP Interpretation Crossmatch 10/14/16 10/14/16 10/14/16 12:52 13:17 14:12 WBC RBC Hgb Hct MCV MCHC RDW Plt Count Seg Neuts % (Manual) Lymphocytes % (Manual) Nucleated RBC % Seg Neutrophils # Man Lymphocytes # (Manual) Haptoglobin PT INR Fibrinogen Lupus Anticoagulant LA PTT Baseline POC ABG pH POC ABG pCO2 POC ABG pO2 Sodium Potassium Chloride Carbon Dioxide BUN Creatinine Glucose POC Glucose < 40 L < 40 L Lactic Acid Uric Acid Calcium Phosphorus Iron TIBC Erythropoietin Ferritin Total Bilirubin Direct Bilirubin AST ALT Alkaline Phosphatase Lactate Dehydrogenase C-Reactive Protein 40.40 H Serum Total Protein Total Protein Albumin Mtcrv-0-Mracgjqxc Abnorm Protein Band 1 PEP Interpretation Crossmatch 10/14/16 10/14/16 10/14/16 15:02 15:33 15:33 WBC RBC Hgb Hct MCV MCHC RDW Plt Count Seg Neuts % (Manual) Lymphocytes % (Manual) Nucleated RBC % Seg Neutrophils # Man Lymphocytes # (Manual) Haptoglobin PT INR Fibrinogen Lupus Anticoagulant LA PTT Baseline POC ABG pH POC ABG pCO2 POC ABG pO2 Sodium Potassium Chloride Carbon Dioxide BUN Creatinine Glucose 19 L* POC Glucose < 40 L Lactic Acid 11.60 H* Uric Acid Calcium Phosphorus Iron TIBC Erythropoietin Ferritin Total Bilirubin Direct Bilirubin AST ALT Alkaline Phosphatase Lactate Dehydrogenase C-Reactive Protein Serum Total Protein Total Protein Albumin Ngrli-4-Vqhqqywmk Abnorm Protein Band 1 PEP Interpretation Crossmatch 10/14/16 10/14/16 10/14/16 17:14 18:03 21:25 WBC RBC Hgb Hct MCV MCHC RDW Plt Count Seg Neuts % (Manual) Lymphocytes % (Manual) Nucleated RBC % Seg Neutrophils # Man Lymphocytes # (Manual) Haptoglobin PT 28.9 H INR 2.71 H Fibrinogen Lupus Anticoagulant LA PTT Baseline POC ABG pH POC ABG pCO2 POC ABG pO2 Sodium Potassium Chloride Carbon Dioxide BUN Creatinine Glucose POC Glucose < 40 L 57 L Lactic Acid Uric Acid Calcium Phosphorus Iron TIBC Erythropoietin Ferritin Total Bilirubin Direct Bilirubin AST ALT Alkaline Phosphatase Lactate Dehydrogenase C-Reactive Protein Serum Total Protein Total Protein Albumin Jwdzc-2-Ufksngbxj Abnorm Protein Band 1 PEP Interpretation Crossmatch 10/15/16 10/15/16 10/15/16 05:32 05:35 05:35 WBC RBC 2.62 L Hgb 8.1 L Hct 25.8 L MCV 98 H D MCHC 31 L RDW 21.2 H Plt Count 61 L Seg Neuts % (Manual) 27.0 L Lymphocytes % (Manual) 10.0 L Nucleated RBC % 2.0 H Seg Neutrophils # Man Lymphocytes # (Manual) 0.8 L Haptoglobin PT INR Fibrinogen Lupus Anticoagulant LA PTT Baseline POC ABG pH POC ABG pCO2 POC ABG pO2 Sodium Potassium Chloride Carbon Dioxide BUN Creatinine Glucose POC Glucose < 40 L Lactic Acid Uric Acid Calcium Phosphorus Iron TIBC Erythropoietin Ferritin Total Bilirubin Direct Bilirubin AST ALT Alkaline Phosphatase Lactate Dehydrogenase 3871 H C-Reactive Protein Serum Total Protein Total Protein Albumin Dwomu-4-Voxmlnlhr Abnorm Protein Band 1 PEP Interpretation Crossmatch 10/15/16 10/15/16 10/15/16 05:35 05:35 05:35 WBC RBC Hgb Hct MCV MCHC RDW Plt Count Seg Neuts % (Manual) Lymphocytes % (Manual) Nucleated RBC % Seg Neutrophils # Man Lymphocytes # (Manual) Haptoglobin PT INR Fibrinogen Lupus Anticoagulant LA PTT Baseline POC ABG pH POC ABG pCO2 POC ABG pO2 Sodium 136 L Potassium 5.3 H D Chloride 91.4 L Carbon Dioxide 6 L* D BUN 57 H Creatinine 7.1 H Glucose 11 L* POC Glucose Lactic Acid 13.60 H* Uric Acid Calcium 7.7 L Phosphorus 10.10 H D Iron TIBC 166 L Erythropoietin Ferritin 9562.0 H Total Bilirubin Direct Bilirubin AST ALT Alkaline Phosphatase Lactate Dehydrogenase C-Reactive Protein Serum Total Protein Total Protein Albumin Jauej-2-Ooefqinjp Abnorm Protein Band 1 PEP Interpretation Crossmatch 10/15/16 10/15/16 10/15/16 05:51 06:22 06:52 WBC RBC Hgb Hct MCV MCHC RDW Plt Count Seg Neuts % (Manual) Lymphocytes % (Manual) Nucleated RBC % Seg Neutrophils # Man Lymphocytes # (Manual) Haptoglobin PT INR Fibrinogen Lupus Anticoagulant LA PTT Baseline POC ABG pH 7.189 L POC ABG pCO2 28.9 L POC ABG pO2 Sodium Potassium Chloride Carbon Dioxide BUN Creatinine Glucose POC Glucose 59 L 111 H Lactic Acid Uric Acid Calcium Phosphorus Iron TIBC Erythropoietin Ferritin Total Bilirubin Direct Bilirubin AST ALT Alkaline Phosphatase Lactate Dehydrogenase C-Reactive Protein Serum Total Protein Total Protein Albumin Phkiq-8-Zjgdkczke Abnorm Protein Band 1 PEP Interpretation Crossmatch 10/15/16 10/15/16 10/15/16 08:00 09:57 11:42 WBC RBC Hgb Hct MCV MCHC RDW Plt Count Seg Neuts % (Manual) Lymphocytes % (Manual) Nucleated RBC % Seg Neutrophils # Man Lymphocytes # (Manual) Haptoglobin PT INR Fibrinogen Lupus Anticoagulant LA PTT Baseline POC ABG pH POC ABG pCO2 POC ABG pO2 Sodium Potassium Chloride Carbon Dioxide BUN Creatinine Glucose POC Glucose 63 L 143 H 203 H Lactic Acid Uric Acid Calcium Phosphorus Iron TIBC Erythropoietin Ferritin Total Bilirubin Direct Bilirubin AST ALT Alkaline Phosphatase Lactate Dehydrogenase C-Reactive Protein Serum Total Protein Total Protein Albumin Wznsb-8-Nxlbpkhbl Abnorm Protein Band 1 PEP Interpretation Crossmatch 10/15/16 10/15/16 10/15/16 12:00 12:00 13:00 WBC RBC Hgb Hct MCV MCHC RDW Plt Count Seg Neuts % (Manual) Lymphocytes % (Manual) Nucleated RBC % Seg Neutrophils # Man Lymphocytes # (Manual) Haptoglobin <15 L PT INR Fibrinogen Lupus Anticoagulant LA PTT Baseline POC ABG pH POC ABG pCO2 POC ABG pO2 Sodium Potassium Chloride Carbon Dioxide BUN Creatinine Glucose POC Glucose 136 H Lactic Acid 16.30 H* Uric Acid Calcium Phosphorus Iron TIBC Erythropoietin Ferritin Total Bilirubin Direct Bilirubin AST ALT Alkaline Phosphatase Lactate Dehydrogenase C-Reactive Protein Serum Total Protein Total Protein Albumin Itzsa-9-Yresbywvv Abnorm Protein Band 1 PEP Interpretation Crossmatch 10/15/16 10/15/16 10/15/16 14:06 15:15 16:23 WBC RBC Hgb Hct MCV MCHC RDW Plt Count Seg Neuts % (Manual) Lymphocytes % (Manual) Nucleated RBC % Seg Neutrophils # Man Lymphocytes # (Manual) Haptoglobin PT INR Fibrinogen Lupus Anticoagulant LA PTT Baseline POC ABG pH POC ABG pCO2 POC ABG pO2 Sodium Potassium Chloride Carbon Dioxide BUN Creatinine Glucose POC Glucose 132 H 64 L Lactic Acid 20.40 H* Uric Acid Calcium Phosphorus Iron TIBC Erythropoietin Ferritin Total Bilirubin Direct Bilirubin AST ALT Alkaline Phosphatase Lactate Dehydrogenase C-Reactive Protein Serum Total Protein Total Protein Albumin Njglb-0-Bqfnzuldn Abnorm Protein Band 1 PEP Interpretation Crossmatch 10/15/16 10/15/16 10/15/16 16:40 17:00 17:10 WBC RBC Hgb Hct MCV MCHC RDW Plt Count Seg Neuts % (Manual) Lymphocytes % (Manual) Nucleated RBC % Seg Neutrophils # Man Lymphocytes # (Manual) Haptoglobin PT INR Fibrinogen Lupus Anticoagulant LA PTT Baseline POC ABG pH 7.323 L POC ABG pCO2 25.8 L POC ABG pO2 135 H Sodium Potassium Chloride Carbon Dioxide BUN Creatinine Glucose POC Glucose 159 H Lactic Acid 20.20 H* Uric Acid Calcium Phosphorus Iron TIBC Erythropoietin Ferritin Total Bilirubin Direct Bilirubin AST ALT Alkaline Phosphatase Lactate Dehydrogenase C-Reactive Protein Serum Total Protein Total Protein Albumin Nbfum-0-Kvraxmttv Abnorm Protein Band 1 PEP Interpretation Crossmatch 10/15/16 10/15/16 10/15/16 17:46 17:53 18:45 WBC RBC Hgb Hct MCV MCHC RDW Plt Count Seg Neuts % (Manual) Lymphocytes % (Manual) Nucleated RBC % Seg Neutrophils # Man Lymphocytes # (Manual) Haptoglobin PT INR Fibrinogen Lupus Anticoagulant LA PTT Baseline POC ABG pH POC ABG pCO2 POC ABG pO2 Sodium Potassium Chloride Carbon Dioxide BUN Creatinine Glucose POC Glucose 126 H 143 H Lactic Acid 21.40 H* Uric Acid Calcium Phosphorus Iron TIBC Erythropoietin Ferritin Total Bilirubin Direct Bilirubin AST ALT Alkaline Phosphatase Lactate Dehydrogenase C-Reactive Protein Serum Total Protein Total Protein Albumin Zgxpw-5-Fffiacipb Abnorm Protein Band 1 PEP Interpretation Crossmatch 10/15/16 10/15/16 10/16/16 20:03 22:59 00:06 WBC RBC Hgb Hct MCV MCHC RDW Plt Count Seg Neuts % (Manual) Lymphocytes % (Manual) Nucleated RBC % Seg Neutrophils # Man Lymphocytes # (Manual) Haptoglobin PT INR Fibrinogen Lupus Anticoagulant LA PTT Baseline POC ABG pH POC ABG pCO2 POC ABG pO2 Sodium Potassium Chloride Carbon Dioxide BUN Creatinine Glucose POC Glucose 66 L 53 L 126 H Lactic Acid Uric Acid Calcium Phosphorus Iron TIBC Erythropoietin Ferritin Total Bilirubin Direct Bilirubin AST ALT Alkaline Phosphatase Lactate Dehydrogenase C-Reactive Protein Serum Total Protein Total Protein Albumin Mooqk-5-Ewpkjbqkw Abnorm Protein Band 1 PEP Interpretation Crossmatch 10/16/16 10/16/16 10/16/16 01:03 03:55 04:00 WBC RBC Hgb Hct MCV MCHC RDW Plt Count Seg Neuts % (Manual) Lymphocytes % (Manual) Nucleated RBC % Seg Neutrophils # Man Lymphocytes # (Manual) Haptoglobin PT INR Fibrinogen Lupus Anticoagulant LA PTT Baseline POC ABG pH POC ABG pCO2 POC ABG pO2 Sodium Potassium Chloride Carbon Dioxide BUN Creatinine Glucose POC Glucose 107 H 260 H Lactic Acid 18.00 H* Uric Acid Calcium Phosphorus Iron TIBC Erythropoietin Ferritin Total Bilirubin Direct Bilirubin AST ALT Alkaline Phosphatase Lactate Dehydrogenase C-Reactive Protein Serum Total Protein Total Protein Albumin Ocexy-3-Inzskizom Abnorm Protein Band 1 PEP Interpretation Crossmatch 10/16/16 10/16/16 10/16/16 04:03 07:58 08:34 WBC RBC Hgb Hct MCV MCHC RDW Plt Count Seg Neuts % (Manual) Lymphocytes % (Manual) Nucleated RBC % Seg Neutrophils # Man Lymphocytes # (Manual) Haptoglobin PT INR Fibrinogen Lupus Anticoagulant LA PTT Baseline POC ABG pH 7.527 H POC ABG pCO2 32.9 L POC ABG pO2 119 H Sodium Potassium Chloride Carbon Dioxide BUN Creatinine Glucose POC Glucose 120 H 66 L Lactic Acid Uric Acid Calcium Phosphorus Iron TIBC Erythropoietin Ferritin Total Bilirubin Direct Bilirubin AST ALT Alkaline Phosphatase Lactate Dehydrogenase C-Reactive Protein Serum Total Protein Total Protein Albumin Zsxgn-6-Ovuonuciw Abnorm Protein Band 1 PEP Interpretation Crossmatch 10/16/16 10/16/16 10/16/16 09:13 10:06 10:57 WBC RBC Hgb Hct MCV MCHC RDW Plt Count Seg Neuts % (Manual) Lymphocytes % (Manual) Nucleated RBC % Seg Neutrophils # Man Lymphocytes # (Manual) Haptoglobin PT INR Fibrinogen Lupus Anticoagulant LA PTT Baseline POC ABG pH POC ABG pCO2 POC ABG pO2 Sodium Potassium Chloride Carbon Dioxide BUN Creatinine Glucose POC Glucose 147 H 137 H 140 H Lactic Acid Uric Acid Calcium Phosphorus Iron TIBC Erythropoietin Ferritin Total Bilirubin Direct Bilirubin AST ALT Alkaline Phosphatase Lactate Dehydrogenase C-Reactive Protein Serum Total Protein Total Protein Albumin Beqlh-1-Yxbcktdoy Abnorm Protein Band 1 PEP Interpretation Crossmatch 10/16/16 10/16/16 10/16/16 11:15 11:15 11:15 WBC 25.8 H RBC 2.30 L Hgb 7.0 L Hct 22.3 L MCV 97 H MCHC 31 L RDW 21.2 H Plt Count 42 L Seg Neuts % (Manual) Lymphocytes % (Manual) 3.0 L Nucleated RBC % 2.0 H Seg Neutrophils # Man 11.1 H Lymphocytes # (Manual) 0.8 L Haptoglobin PT INR Fibrinogen Lupus Anticoagulant LA PTT Baseline POC ABG pH POC ABG pCO2 POC ABG pO2 Sodium Potassium Chloride 81.7 L Carbon Dioxide 13 L D BUN 61 H Creatinine 6.2 H Glucose 171 H POC Glucose Lactic Acid 22.70 H* Uric Acid Calcium 7.1 L Phosphorus 9.10 H Iron TIBC Erythropoietin Ferritin Total Bilirubin Direct Bilirubin AST ALT Alkaline Phosphatase Lactate Dehydrogenase C-Reactive Protein Serum Total Protein Total Protein Albumin Uwicz-9-Slkexglzl Abnorm Protein Band 1 PEP Interpretation Crossmatch 10/16/16 10/16/16 10/16/16 15:10 15:50 18:11 WBC RBC Hgb Hct MCV MCHC RDW Plt Count Seg Neuts % (Manual) Lymphocytes % (Manual) Nucleated RBC % Seg Neutrophils # Man Lymphocytes # (Manual) Haptoglobin PT INR Fibrinogen Lupus Anticoagulant LA PTT Baseline POC ABG pH POC ABG pCO2 POC ABG pO2 Sodium Potassium Chloride Carbon Dioxide BUN Creatinine Glucose POC Glucose 47 L 164 H 58 L Lactic Acid Uric Acid Calcium Phosphorus Iron TIBC Erythropoietin Ferritin Total Bilirubin Direct Bilirubin AST ALT Alkaline Phosphatase Lactate Dehydrogenase C-Reactive Protein Serum Total Protein Total Protein Albumin Snrsk-9-Akjivnhoa Abnorm Protein Band 1 PEP Interpretation Crossmatch 10/16/16 10/16/16 10/17/16 18:26 21:06 00:06 WBC RBC Hgb Hct MCV MCHC RDW Plt Count Seg Neuts % (Manual) Lymphocytes % (Manual) Nucleated RBC % Seg Neutrophils # Man Lymphocytes # (Manual) Haptoglobin PT INR Fibrinogen Lupus Anticoagulant LA PTT Baseline POC ABG pH POC ABG pCO2 POC ABG pO2 489 H Sodium Potassium Chloride Carbon Dioxide BUN Creatinine Glucose POC Glucose 52 L 120 H Lactic Acid Uric Acid Calcium Phosphorus Iron TIBC Erythropoietin Ferritin Total Bilirubin Direct Bilirubin AST ALT Alkaline Phosphatase Lactate Dehydrogenase C-Reactive Protein Serum Total Protein Total Protein Albumin Epijd-9-Xfxpimyap Abnorm Protein Band 1 PEP Interpretation Crossmatch 10/17/16 10/17/16 10/17/16 04:55 04:55 05:04 WBC 25.5 H RBC 2.23 L Hgb 6.6 L Hct 21.2 L MCV 95 H MCHC 31 L RDW 20.5 H Plt Count 35 L Seg Neuts % (Manual) 79.0 H Lymphocytes % (Manual) 0 L Nucleated RBC % Seg Neutrophils # Man 20.1 H Lymphocytes # (Manual) 0.0 L Haptoglobin PT INR Fibrinogen Lupus Anticoagulant LA PTT Baseline POC ABG pH POC ABG pCO2 27.2 L POC ABG pO2 162 H Sodium Potassium Chloride 91.5 L Carbon Dioxide 16 L BUN 45 H Creatinine 4.5 H Glucose 103 H POC Glucose Lactic Acid Uric Acid Calcium 6.9 L Phosphorus 5.80 H D Iron TIBC Erythropoietin Ferritin Total Bilirubin Direct Bilirubin AST ALT Alkaline Phosphatase Lactate Dehydrogenase C-Reactive Protein Serum Total Protein Total Protein Albumin Nnlwk-6-Bezvitxfs Abnorm Protein Band 1 PEP Interpretation Crossmatch 10/17/16 10/17/16 10/17/16 07:59 09:04 10:04 WBC RBC Hgb Hct MCV MCHC RDW Plt Count Seg Neuts % (Manual) Lymphocytes % (Manual) Nucleated RBC % Seg Neutrophils # Man Lymphocytes # (Manual) Haptoglobin PT INR Fibrinogen Lupus Anticoagulant LA PTT Baseline POC ABG pH POC ABG pCO2 POC ABG pO2 Sodium Potassium Chloride Carbon Dioxide BUN Creatinine Glucose POC Glucose 65 L 118 H Lactic Acid Uric Acid Calcium Phosphorus Iron TIBC Erythropoietin Ferritin Total Bilirubin Direct Bilirubin AST ALT Alkaline Phosphatase Lactate Dehydrogenase C-Reactive Protein Serum Total Protein Total Protein Albumin Kijda-6-Vnvbciyqj Abnorm Protein Band 1 PEP Interpretation Crossmatch See Detail 10/17/16 10/17/16 10/17/16 11:52 13:08 15:42 WBC RBC Hgb Hct MCV MCHC RDW Plt Count Seg Neuts % (Manual) Lymphocytes % (Manual) Nucleated RBC % Seg Neutrophils # Man Lymphocytes # (Manual) Haptoglobin PT INR Fibrinogen Lupus Anticoagulant LA PTT Baseline POC ABG pH POC ABG pCO2 POC ABG pO2 Sodium Potassium Chloride Carbon Dioxide BUN Creatinine Glucose POC Glucose 125 H 106 H 55 L Lactic Acid Uric Acid Calcium Phosphorus Iron TIBC Erythropoietin Ferritin Total Bilirubin Direct Bilirubin AST ALT Alkaline Phosphatase Lactate Dehydrogenase C-Reactive Protein Serum Total Protein Total Protein Albumin Xmhuc-9-Dxxixiulx Abnorm Protein Band 1 PEP Interpretation Crossmatch 10/17/16 10/17/16 10/17/16 17:39 20:37 21:02 WBC RBC Hgb Hct MCV MCHC RDW Plt Count Seg Neuts % (Manual) Lymphocytes % (Manual) Nucleated RBC % Seg Neutrophils # Man Lymphocytes # (Manual) Haptoglobin PT INR Fibrinogen Lupus Anticoagulant LA PTT Baseline POC ABG pH POC ABG pCO2 28.2 L POC ABG pO2 Sodium Potassium Chloride Carbon Dioxide BUN Creatinine Glucose POC Glucose < 40 L 106 H Lactic Acid Uric Acid Calcium Phosphorus Iron TIBC Erythropoietin Ferritin Total Bilirubin Direct Bilirubin AST ALT Alkaline Phosphatase Lactate Dehydrogenase C-Reactive Protein Serum Total Protein Total Protein Albumin Oetho-6-Dyvfjuogf Abnorm Protein Band 1 PEP Interpretation Crossmatch 10/17/16 10/17/16 10/18/16 22:18 23:14 00:28 WBC RBC Hgb Hct MCV MCHC RDW Plt Count Seg Neuts % (Manual) Lymphocytes % (Manual) Nucleated RBC % Seg Neutrophils # Man Lymphocytes # (Manual) Haptoglobin PT INR Fibrinogen Lupus Anticoagulant LA PTT Baseline POC ABG pH POC ABG pCO2 POC ABG pO2 Sodium Potassium Chloride Carbon Dioxide BUN Creatinine Glucose POC Glucose 111 H 118 H 112 H Lactic Acid Uric Acid Calcium Phosphorus Iron TIBC Erythropoietin Ferritin Total Bilirubin Direct Bilirubin AST ALT Alkaline Phosphatase Lactate Dehydrogenase C-Reactive Protein Serum Total Protein Total Protein Albumin Liyaz-1-Ohdkiuros Abnorm Protein Band 1 PEP Interpretation Crossmatch 10/18/16 10/18/16 10/18/16 05:00 05:00 05:15 WBC 27.3 H RBC 2.75 L Hgb 7.9 L Hct 25.3 L MCV MCHC 31 L RDW 20.7 H Plt Count 31 L Seg Neuts % (Manual) 87.0 H Lymphocytes % (Manual) 1.0 L Nucleated RBC % 1.0 H Seg Neutrophils # Man 23.8 H Lymphocytes # (Manual) 0.3 L Haptoglobin PT INR Fibrinogen Lupus Anticoagulant LA PTT Baseline POC ABG pH 7.466 H POC ABG pCO2 25.1 L POC ABG pO2 Sodium Potassium Chloride 88.7 L Carbon Dioxide 18 L BUN 66 H Creatinine 4.7 H Glucose POC Glucose Lactic Acid Uric Acid Calcium 6.1 L Phosphorus 7.30 H D Iron TIBC Erythropoietin Ferritin Total Bilirubin Direct Bilirubin AST ALT Alkaline Phosphatase Lactate Dehydrogenase C-Reactive Protein Serum Total Protein Total Protein Albumin Reboy-5-Yswihjfpi Abnorm Protein Band 1 PEP Interpretation Crossmatch 10/18/16 10/18/16 10/18/16 07:15 07:44 09:07 WBC RBC Hgb Hct MCV MCHC RDW Plt Count Seg Neuts % (Manual) Lymphocytes % (Manual) Nucleated RBC % Seg Neutrophils # Man Lymphocytes # (Manual) Haptoglobin PT INR Fibrinogen Lupus Anticoagulant LA PTT Baseline POC ABG pH POC ABG pCO2 POC ABG pO2 Sodium Potassium Chloride Carbon Dioxide BUN Creatinine Glucose POC Glucose 64 L 156 H 117 H Lactic Acid Uric Acid Calcium Phosphorus Iron TIBC Erythropoietin Ferritin Total Bilirubin Direct Bilirubin AST ALT Alkaline Phosphatase Lactate Dehydrogenase C-Reactive Protein Serum Total Protein Total Protein Albumin Mghpz-5-Hhszdwxvd Abnorm Protein Band 1 PEP Interpretation Crossmatch 10/18/16 10/18/16 10/18/16 09:15 14:00 18:21 WBC RBC Hgb Hct MCV MCHC RDW Plt Count Seg Neuts % (Manual) Lymphocytes % (Manual) Nucleated RBC % Seg Neutrophils # Man Lymphocytes # (Manual) Haptoglobin PT INR Fibrinogen Lupus Anticoagulant LA PTT Baseline POC ABG pH POC ABG pCO2 POC ABG pO2 Sodium Potassium Chloride Carbon Dioxide BUN Creatinine Glucose POC Glucose 106 H 112 H Lactic Acid 14.30 H* Uric Acid Calcium Phosphorus Iron TIBC Erythropoietin Ferritin Total Bilirubin Direct Bilirubin AST ALT Alkaline Phosphatase Lactate Dehydrogenase C-Reactive Protein Serum Total Protein Total Protein Albumin Asoun-5-Tzlndxdij Abnorm Protein Band 1 PEP Interpretation Crossmatch 10/18/16 10/18/16 10/18/16 19:58 20:55 22:11 WBC RBC Hgb Hct MCV MCHC RDW Plt Count Seg Neuts % (Manual) Lymphocytes % (Manual) Nucleated RBC % Seg Neutrophils # Man Lymphocytes # (Manual) Haptoglobin PT INR Fibrinogen Lupus Anticoagulant LA PTT Baseline POC ABG pH POC ABG pCO2 POC ABG pO2 Sodium Potassium Chloride Carbon Dioxide BUN Creatinine Glucose POC Glucose 127 H 125 H 159 H Lactic Acid Uric Acid Calcium Phosphorus Iron TIBC Erythropoietin Ferritin Total Bilirubin Direct Bilirubin AST ALT Alkaline Phosphatase Lactate Dehydrogenase C-Reactive Protein Serum Total Protein Total Protein Albumin Bxpxd-4-Dzpxjsypr Abnorm Protein Band 1 PEP Interpretation Crossmatch 10/18/16 10/18/16 10/19/16 23:11 23:57 01:06 WBC RBC Hgb Hct MCV MCHC RDW Plt Count Seg Neuts % (Manual) Lymphocytes % (Manual) Nucleated RBC % Seg Neutrophils # Man Lymphocytes # (Manual) Haptoglobin PT INR Fibrinogen Lupus Anticoagulant LA PTT Baseline POC ABG pH POC ABG pCO2 POC ABG pO2 Sodium Potassium Chloride Carbon Dioxide BUN Creatinine Glucose POC Glucose 122 H 137 H 162 H Lactic Acid Uric Acid Calcium Phosphorus Iron TIBC Erythropoietin Ferritin Total Bilirubin Direct Bilirubin AST ALT Alkaline Phosphatase Lactate Dehydrogenase C-Reactive Protein Serum Total Protein Total Protein Albumin Qtyhr-9-Zyooodwcm Abnorm Protein Band 1 PEP Interpretation Crossmatch 10/19/16 10/19/16 10/19/16 01:59 03:07 04:10 WBC RBC Hgb Hct MCV MCHC RDW Plt Count Seg Neuts % (Manual) Lymphocytes % (Manual) Nucleated RBC % Seg Neutrophils # Man Lymphocytes # (Manual) Haptoglobin PT INR Fibrinogen Lupus Anticoagulant LA PTT Baseline POC ABG pH POC ABG pCO2 POC ABG pO2 Sodium Potassium Chloride Carbon Dioxide BUN Creatinine Glucose POC Glucose 154 H 178 H 186 H Lactic Acid Uric Acid Calcium Phosphorus Iron TIBC Erythropoietin Ferritin Total Bilirubin Direct Bilirubin AST ALT Alkaline Phosphatase Lactate Dehydrogenase C-Reactive Protein Serum Total Protein Total Protein Albumin Tvshz-5-Ovldigqld Abnorm Protein Band 1 PEP Interpretation Crossmatch 10/19/16 10/19/16 10/19/16 05:14 05:15 05:47 WBC RBC Hgb Hct MCV MCHC RDW Plt Count Seg Neuts % (Manual) Lymphocytes % (Manual) Nucleated RBC % Seg Neutrophils # Man Lymphocytes # (Manual) Haptoglobin PT INR Fibrinogen Lupus Anticoagulant LA PTT Baseline POC ABG pH 7.581 H POC ABG pCO2 22.9 L POC ABG pO2 58 L Sodium Potassium Chloride Carbon Dioxide BUN Creatinine Glucose POC Glucose 197 H 204 H Lactic Acid Uric Acid Calcium Phosphorus Iron TIBC Erythropoietin Ferritin Total Bilirubin Direct Bilirubin AST ALT Alkaline Phosphatase Lactate Dehydrogenase C-Reactive Protein Serum Total Protein Total Protein Albumin Myuea-3-Rsphygurv Abnorm Protein Band 1 PEP Interpretation Crossmatch 10/19/16 10/19/16 10/19/16 06:00 06:00 07:51 WBC 23.0 H RBC 2.54 L Hgb 7.5 L Hct 23.0 L MCV MCHC RDW 20.7 H Plt Count 25 L Seg Neuts % (Manual) 91.0 H Lymphocytes % (Manual) 2.0 L Nucleated RBC % 1.0 H Seg Neutrophils # Man 20.9 H Lymphocytes # (Manual) 0.5 L Haptoglobin PT INR Fibrinogen Lupus Anticoagulant LA PTT Baseline POC ABG pH POC ABG pCO2 POC ABG pO2 Sodium Potassium Chloride 88.7 L Carbon Dioxide 21 L BUN 70 H Creatinine 3.9 H Glucose 189 H POC Glucose 145 H Lactic Acid Uric Acid Calcium 5.6 L* Phosphorus 6.30 H Iron TIBC Erythropoietin Ferritin Total Bilirubin Direct Bilirubin AST ALT Alkaline Phosphatase Lactate Dehydrogenase C-Reactive Protein Serum Total Protein Total Protein Albumin Buswz-7-Ssrtdscbt Abnorm Protein Band 1 PEP Interpretation Crossmatch 10/19/16 10/19/16 10/19/16 09:14 10:01 12:14 WBC RBC Hgb Hct MCV MCHC RDW Plt Count Seg Neuts % (Manual) Lymphocytes % (Manual) Nucleated RBC % Seg Neutrophils # Man Lymphocytes # (Manual) Haptoglobin PT INR Fibrinogen Lupus Anticoagulant LA PTT Baseline POC ABG pH POC ABG pCO2 POC ABG pO2 Sodium Potassium Chloride Carbon Dioxide BUN Creatinine Glucose POC Glucose 173 H 153 H 180 H Lactic Acid Uric Acid Calcium Phosphorus Iron TIBC Erythropoietin Ferritin Total Bilirubin Direct Bilirubin AST ALT Alkaline Phosphatase Lactate Dehydrogenase C-Reactive Protein Serum Total Protein Total Protein Albumin Qrynf-5-Weytddpwk Abnorm Protein Band 1 PEP Interpretation Crossmatch 10/19/16 10/19/16 10/19/16 14:15 16:38 20:27 WBC RBC Hgb Hct MCV MCHC RDW Plt Count Seg Neuts % (Manual) Lymphocytes % (Manual) Nucleated RBC % Seg Neutrophils # Man Lymphocytes # (Manual) Haptoglobin PT INR Fibrinogen Lupus Anticoagulant LA PTT Baseline POC ABG pH POC ABG pCO2 POC ABG pO2 Sodium Potassium Chloride Carbon Dioxide BUN Creatinine Glucose POC Glucose 194 H 202 H Lactic Acid Uric Acid Calcium Phosphorus Iron TIBC Erythropoietin 148.2 H Ferritin Total Bilirubin Direct Bilirubin AST ALT Alkaline Phosphatase Lactate Dehydrogenase C-Reactive Protein Serum Total Protein Total Protein Albumin Dvrec-2-Rggvobrlz Abnorm Protein Band 1 PEP Interpretation Crossmatch 10/19/16 10/20/16 10/20/16 23:27 04:06 05:00 WBC RBC Hgb Hct MCV MCHC RDW Plt Count Seg Neuts % (Manual) Lymphocytes % (Manual) Nucleated RBC % Seg Neutrophils # Man Lymphocytes # (Manual) Haptoglobin PT INR Fibrinogen Lupus Anticoagulant LA PTT Baseline POC ABG pH POC ABG pCO2 POC ABG pO2 Sodium Potassium Chloride 88.8 L Carbon Dioxide BUN 93 H Creatinine 4.3 H Glucose 204 H POC Glucose 201 H 200 H Lactic Acid Uric Acid Calcium 5.2 L* Phosphorus Iron TIBC Erythropoietin Ferritin Total Bilirubin Direct Bilirubin AST ALT Alkaline Phosphatase Lactate Dehydrogenase C-Reactive Protein Serum Total Protein Total Protein Albumin Enhpo-6-Fxxsidhhv Abnorm Protein Band 1 PEP Interpretation Crossmatch 10/20/16 10/20/16 10/20/16 05:16 06:00 07:43 WBC 24.8 H RBC 2.52 L Hgb 7.4 L Hct 22.9 L MCV MCHC RDW 19.9 H Plt Count 23 L Seg Neuts % (Manual) 97.0 H Lymphocytes % (Manual) 1.0 L Nucleated RBC % 9.0 H Seg Neutrophils # Man 24.1 H Lymphocytes # (Manual) 0.2 L Haptoglobin PT INR Fibrinogen Lupus Anticoagulant LA PTT Baseline POC ABG pH 7.463 H POC ABG pCO2 POC ABG pO2 157 H Sodium Potassium Chloride Carbon Dioxide BUN Creatinine Glucose POC Glucose 192 H Lactic Acid Uric Acid Calcium Phosphorus Iron TIBC Erythropoietin Ferritin Total Bilirubin Direct Bilirubin AST ALT Alkaline Phosphatase Lactate Dehydrogenase C-Reactive Protein Serum Total Protein Total Protein Albumin Mffmk-5-Ndmjhexwe Abnorm Protein Band 1 PEP Interpretation Crossmatch 10/20/16 10/20/16 10/20/16 12:11 15:32 21:23 WBC RBC Hgb Hct MCV MCHC RDW Plt Count Seg Neuts % (Manual) Lymphocytes % (Manual) Nucleated RBC % Seg Neutrophils # Man Lymphocytes # (Manual) Haptoglobin PT INR Fibrinogen Lupus Anticoagulant LA PTT Baseline POC ABG pH POC ABG pCO2 POC ABG pO2 Sodium Potassium Chloride Carbon Dioxide BUN Creatinine Glucose POC Glucose 172 H 216 H 271 H Lactic Acid Uric Acid Calcium Phosphorus Iron TIBC Erythropoietin Ferritin Total Bilirubin Direct Bilirubin AST ALT Alkaline Phosphatase Lactate Dehydrogenase C-Reactive Protein Serum Total Protein Total Protein Albumin Sghxe-1-Jnsooyxtd Abnorm Protein Band 1 PEP Interpretation Crossmatch 10/20/16 10/21/16 10/21/16 23:49 03:53 04:58 WBC RBC Hgb Hct MCV MCHC RDW Plt Count Seg Neuts % (Manual) Lymphocytes % (Manual) Nucleated RBC % Seg Neutrophils # Man Lymphocytes # (Manual) Haptoglobin PT INR Fibrinogen Lupus Anticoagulant LA PTT Baseline POC ABG pH 7.459 H POC ABG pCO2 POC ABG pO2 113 H Sodium 136 L Potassium 2.8 L* D Chloride 91.6 L Carbon Dioxide BUN 62 H Creatinine 2.8 H Glucose 236 H POC Glucose 317 H Lactic Acid Uric Acid Calcium 6.2 L D Phosphorus Iron TIBC Erythropoietin Ferritin Total Bilirubin 2.70 H Direct Bilirubin AST 73 H ALT 57 H Alkaline Phosphatase 158 H Lactate Dehydrogenase C-Reactive Protein Serum Total Protein Total Protein 4.9 L Albumin 2.6 L Veivv-4-Eklkdtnuu Abnorm Protein Band 1 PEP Interpretation Crossmatch 10/21/16 10/21/16 10/21/16 05:25 07:11 10:30 WBC 28.1 H RBC 2.36 L Hgb 7.0 L Hct 21.6 L MCV MCHC RDW 20.0 H Plt Count 14 L* Seg Neuts % (Manual) 92.0 H Lymphocytes % (Manual) 0 L Nucleated RBC % 5.0 H Seg Neutrophils # Man 25.9 H Lymphocytes # (Manual) 0.0 L Haptoglobin PT INR Fibrinogen Lupus Anticoagulant LA PTT Baseline POC ABG pH POC ABG pCO2 POC ABG pO2 Sodium Potassium Chloride Carbon Dioxide BUN Creatinine Glucose POC Glucose 237 H 206 H Lactic Acid Uric Acid Calcium Phosphorus Iron TIBC Erythropoietin Ferritin Total Bilirubin Direct Bilirubin AST ALT Alkaline Phosphatase Lactate Dehydrogenase C-Reactive Protein Serum Total Protein Total Protein Albumin Nyirl-1-Ldhegxqiz Abnorm Protein Band 1 PEP Interpretation Crossmatch 10/21/16 10/21/16 10/21/16 11:25 12:31 16:33 WBC RBC Hgb Hct MCV MCHC RDW Plt Count Seg Neuts % (Manual) Lymphocytes % (Manual) Nucleated RBC % Seg Neutrophils # Man Lymphocytes # (Manual) Haptoglobin PT 49.1 H INR 5.28 H* Fibrinogen Lupus Anticoagulant LA PTT Baseline POC ABG pH POC ABG pCO2 POC ABG pO2 Sodium Potassium Chloride Carbon Dioxide BUN Creatinine Glucose POC Glucose 145 H 151 H Lactic Acid Uric Acid Calcium Phosphorus Iron TIBC Erythropoietin Ferritin Total Bilirubin Direct Bilirubin AST ALT Alkaline Phosphatase Lactate Dehydrogenase C-Reactive Protein Serum Total Protein Total Protein Albumin Kjiob-6-Pozjekhlu Abnorm Protein Band 1 PEP Interpretation Crossmatch 10/21/16 10/22/16 10/22/16 19:53 00:00 05:23 WBC RBC Hgb Hct MCV MCHC RDW Plt Count Seg Neuts % (Manual) Lymphocytes % (Manual) Nucleated RBC % Seg Neutrophils # Man Lymphocytes # (Manual) Haptoglobin PT INR Fibrinogen Lupus Anticoagulant LA PTT Baseline POC ABG pH POC ABG pCO2 POC ABG pO2 Sodium Potassium Chloride Carbon Dioxide BUN Creatinine Glucose POC Glucose 170 H 168 H 131 H Lactic Acid Uric Acid Calcium Phosphorus Iron TIBC Erythropoietin Ferritin Total Bilirubin Direct Bilirubin AST ALT Alkaline Phosphatase Lactate Dehydrogenase C-Reactive Protein Serum Total Protein Total Protein Albumin Usmnp-2-Indchvdkn Abnorm Protein Band 1 PEP Interpretation Crossmatch 10/22/16 10/22/16 10/22/16 05:25 05:35 13:03 WBC RBC Hgb Hct MCV MCHC RDW Plt Count Seg Neuts % (Manual) Lymphocytes % (Manual) Nucleated RBC % Seg Neutrophils # Man Lymphocytes # (Manual) Haptoglobin PT INR Fibrinogen Lupus Anticoagulant LA PTT Baseline POC ABG pH 7.462 H POC ABG pCO2 POC ABG pO2 Sodium 135 L Potassium 3.0 L Chloride 88.5 L Carbon Dioxide BUN 84 H Creatinine 3.4 H Glucose 124 H POC Glucose 164 H Lactic Acid Uric Acid Calcium 5.9 L* Phosphorus Iron TIBC Erythropoietin Ferritin Total Bilirubin 2.00 H Direct Bilirubin AST 85 H ALT Alkaline Phosphatase 199 H Lactate Dehydrogenase C-Reactive Protein Serum Total Protein Total Protein 5.0 L Albumin 2.5 L Drwss-2-Gwaysmghr Abnorm Protein Band 1 PEP Interpretation Crossmatch 10/22/16 10/22/16 10/23/16 17:14 23:16 04:47 WBC RBC Hgb Hct MCV MCHC RDW Plt Count Seg Neuts % (Manual) Lymphocytes % (Manual) Nucleated RBC % Seg Neutrophils # Man Lymphocytes # (Manual) Haptoglobin PT INR Fibrinogen Lupus Anticoagulant LA PTT Baseline POC ABG pH 7.476 H POC ABG pCO2 POC ABG pO2 108 H Sodium Potassium Chloride Carbon Dioxide BUN Creatinine Glucose POC Glucose 188 H 167 H Lactic Acid Uric Acid Calcium Phosphorus Iron TIBC Erythropoietin Ferritin Total Bilirubin Direct Bilirubin AST ALT Alkaline Phosphatase Lactate Dehydrogenase C-Reactive Protein Serum Total Protein Total Protein Albumin Mzjtz-7-Fwgqbsvdi Abnorm Protein Band 1 PEP Interpretation Crossmatch 10/23/16 10/23/16 10/23/16 05:49 07:00 07:12 WBC 24.2 H RBC 2.27 L Hgb 7.0 L Hct 21.1 L MCV MCHC RDW 19.7 H Plt Count 35 L D Seg Neuts % (Manual) Lymphocytes % (Manual) Nucleated RBC % Seg Neutrophils # Man Lymphocytes # (Manual) Haptoglobin PT INR Fibrinogen Lupus Anticoagulant LA PTT Baseline POC ABG pH POC ABG pCO2 POC ABG pO2 Sodium Potassium 3.5 L Chloride 95.7 L Carbon Dioxide BUN 55 H Creatinine 2.7 H Glucose 103 H POC Glucose 106 H Lactic Acid Uric Acid Calcium 7.1 L D Phosphorus Iron TIBC Erythropoietin Ferritin Total Bilirubin Direct Bilirubin AST ALT Alkaline Phosphatase Lactate Dehydrogenase C-Reactive Protein Serum Total Protein Total Protein Albumin Qodfv-6-Kcbrtgezs Abnorm Protein Band 1 PEP Interpretation Crossmatch 10/24/16 10/24/16 10/24/16 00:12 05:16 07:00 WBC 17.9 H RBC 2.12 L Hgb 6.5 L Hct 19.9 L* MCV MCHC RDW 19.3 H Plt Count 44 L Seg Neuts % (Manual) Lymphocytes % (Manual) Nucleated RBC % Seg Neutrophils # Man Lymphocytes # (Manual) Haptoglobin PT INR Fibrinogen Lupus Anticoagulant LA PTT Baseline POC ABG pH POC ABG pCO2 POC ABG pO2 Sodium Potassium Chloride Carbon Dioxide BUN Creatinine Glucose POC Glucose 116 H 135 H Lactic Acid Uric Acid Calcium Phosphorus Iron TIBC Erythropoietin Ferritin Total Bilirubin Direct Bilirubin AST ALT Alkaline Phosphatase Lactate Dehydrogenase C-Reactive Protein Serum Total Protein Total Protein Albumin Aastf-5-Yxjyxgyeb Abnorm Protein Band 1 PEP Interpretation Crossmatch 10/24/16 10/24/16 10/24/16 07:00 11:45 12:12 WBC RBC Hgb Hct MCV MCHC RDW Plt Count Seg Neuts % (Manual) Lymphocytes % (Manual) Nucleated RBC % Seg Neutrophils # Man Lymphocytes # (Manual) Haptoglobin PT INR Fibrinogen Lupus Anticoagulant LA PTT Baseline POC ABG pH POC ABG pCO2 POC ABG pO2 Sodium Potassium Chloride 92.9 L Carbon Dioxide BUN 74 H Creatinine 3.3 H Glucose 136 H POC Glucose 177 H Lactic Acid Uric Acid Calcium 6.6 L Phosphorus Iron TIBC Erythropoietin Ferritin Total Bilirubin 2.10 H Direct Bilirubin AST 68 H ALT Alkaline Phosphatase 224 H Lactate Dehydrogenase C-Reactive Protein Serum Total Protein Total Protein 4.8 L Albumin 2.3 L Ewtfn-4-Yawzmzmwj Abnorm Protein Band 1 PEP Interpretation Crossmatch See Detail 10/24/16 10/24/16 10/24/16 16:30 16:30 17:28 WBC RBC Hgb Hct MCV MCHC RDW Plt Count Seg Neuts % (Manual) Lymphocytes % (Manual) Nucleated RBC % Seg Neutrophils # Man Lymphocytes # (Manual) Haptoglobin PT INR Fibrinogen Lupus Anticoagulant LA PTT Baseline POC ABG pH POC ABG pCO2 POC ABG pO2 Sodium Potassium Chloride Carbon Dioxide BUN Creatinine Glucose POC Glucose 128 H Lactic Acid 3.00 H* Uric Acid Calcium Phosphorus Iron TIBC Erythropoietin Ferritin Total Bilirubin Direct Bilirubin AST ALT Alkaline Phosphatase Lactate Dehydrogenase C-Reactive Protein 7.40 H Serum Total Protein Total Protein Albumin Jszvf-3-Maofypsse Abnorm Protein Band 1 PEP Interpretation Crossmatch 10/24/16 10/24/16 10/25/16 18:40 23:32 05:00 WBC 17.5 H RBC 2.99 L Hgb 9.1 L Hct 26.9 L D MCV MCHC RDW 17.7 H Plt Count 53 L Seg Neuts % (Manual) Lymphocytes % (Manual) Nucleated RBC % Seg Neutrophils # Man Lymphocytes # (Manual) Haptoglobin PT INR Fibrinogen Lupus Anticoagulant LA PTT Baseline POC ABG pH POC ABG pCO2 POC ABG pO2 Sodium Potassium Chloride Carbon Dioxide BUN Creatinine Glucose POC Glucose 140 H Lactic Acid 3.10 H* Uric Acid Calcium Phosphorus Iron TIBC Erythropoietin Ferritin Total Bilirubin Direct Bilirubin AST ALT Alkaline Phosphatase Lactate Dehydrogenase C-Reactive Protein Serum Total Protein Total Protein Albumin Jzrtb-2-Fjyybbzog Abnorm Protein Band 1 PEP Interpretation Crossmatch 10/25/16 10/25/16 10/25/16 05:00 05:22 11:58 WBC RBC Hgb Hct MCV MCHC RDW Plt Count Seg Neuts % (Manual) Lymphocytes % (Manual) Nucleated RBC % Seg Neutrophils # Man Lymphocytes # (Manual) Haptoglobin PT INR Fibrinogen Lupus Anticoagulant LA PTT Baseline POC ABG pH POC ABG pCO2 POC ABG pO2 Sodium Potassium Chloride 91.6 L Carbon Dioxide BUN 89 H Creatinine 3.9 H Glucose 150 H POC Glucose 164 H 189 H Lactic Acid Uric Acid Calcium 6.9 L Phosphorus Iron TIBC Erythropoietin Ferritin Total Bilirubin Direct Bilirubin AST ALT Alkaline Phosphatase Lactate Dehydrogenase C-Reactive Protein Serum Total Protein Total Protein Albumin Eskcz-3-Waybuvwlp Abnorm Protein Band 1 PEP Interpretation Crossmatch 10/25/16 10/25/16 10/26/16 17:56 23:12 04:00 WBC RBC Hgb Hct MCV MCHC RDW Plt Count Seg Neuts % (Manual) Lymphocytes % (Manual) Nucleated RBC % Seg Neutrophils # Man Lymphocytes # (Manual) Haptoglobin PT INR Fibrinogen Lupus Anticoagulant LA PTT Baseline POC ABG pH POC ABG pCO2 POC ABG pO2 Sodium 135 L Potassium Chloride 90.7 L Carbon Dioxide BUN 64 H Creatinine 2.9 H Glucose 132 H POC Glucose 156 H 133 H Lactic Acid Uric Acid Calcium 7.3 L Phosphorus Iron TIBC Erythropoietin Ferritin Total Bilirubin Direct Bilirubin AST ALT Alkaline Phosphatase Lactate Dehydrogenase C-Reactive Protein Serum Total Protein Total Protein Albumin Xnbpc-3-Swfpyfgkk Abnorm Protein Band 1 PEP Interpretation Crossmatch 10/26/16 10/26/16 10/26/16 05:14 06:15 11:51 WBC 18.6 H RBC 3.15 L Hgb 9.6 L Hct 29.0 L MCV MCHC RDW 17.8 H Plt Count 71 L Seg Neuts % (Manual) 85.0 H Lymphocytes % (Manual) 1.0 L Nucleated RBC % Seg Neutrophils # Man 15.8 H Lymphocytes # (Manual) 0.2 L Haptoglobin PT INR Fibrinogen Lupus Anticoagulant LA PTT Baseline POC ABG pH POC ABG pCO2 POC ABG pO2 Sodium Potassium Chloride Carbon Dioxide BUN Creatinine Glucose POC Glucose 130 H 139 H Lactic Acid Uric Acid Calcium Phosphorus Iron TIBC Erythropoietin Ferritin Total Bilirubin Direct Bilirubin AST ALT Alkaline Phosphatase Lactate Dehydrogenase C-Reactive Protein Serum Total Protein Total Protein Albumin Batft-9-Vrcmonlqw Abnorm Protein Band 1 PEP Interpretation Crossmatch 10/26/16 10/26/16 10/27/16 17:25 23:35 04:10 WBC 16.8 H RBC 3.38 L Hgb 10.1 L Hct 31.0 L MCV MCHC RDW 18.0 H Plt Count 77 L Seg Neuts % (Manual) 92.0 H Lymphocytes % (Manual) 1.0 L Nucleated RBC % 1.0 H Seg Neutrophils # Man 15.5 H Lymphocytes # (Manual) 0.2 L Haptoglobin PT INR Fibrinogen Lupus Anticoagulant LA PTT Baseline POC ABG pH POC ABG pCO2 POC ABG pO2 Sodium Potassium Chloride Carbon Dioxide BUN Creatinine Glucose POC Glucose 118 H 145 H Lactic Acid Uric Acid Calcium Phosphorus Iron TIBC Erythropoietin Ferritin Total Bilirubin Direct Bilirubin AST ALT Alkaline Phosphatase Lactate Dehydrogenase C-Reactive Protein Serum Total Protein Total Protein Albumin Ucpqb-9-Kmwaznids Abnorm Protein Band 1 PEP Interpretation Crossmatch 10/27/16 10/27/16 10/27/16 04:10 05:53 08:14 WBC RBC Hgb Hct MCV MCHC RDW Plt Count Seg Neuts % (Manual) Lymphocytes % (Manual) Nucleated RBC % Seg Neutrophils # Man Lymphocytes # (Manual) Haptoglobin PT 23.0 H INR 2.03 H Fibrinogen Lupus Anticoagulant LA PTT Baseline POC ABG pH POC ABG pCO2 POC ABG pO2 Sodium Potassium Chloride 95.5 L Carbon Dioxide BUN 63 H Creatinine 2.8 H Glucose 112 H POC Glucose 127 H Lactic Acid Uric Acid Calcium 7.5 L Phosphorus Iron TIBC Erythropoietin Ferritin Total Bilirubin Direct Bilirubin AST ALT Alkaline Phosphatase Lactate Dehydrogenase C-Reactive Protein Serum Total Protein Total Protein Albumin Tslye-5-Khzigvbsa Abnorm Protein Band 1 PEP Interpretation Crossmatch 10/27/16 10/27/16 10/27/16 11:56 17:47 23:55 WBC RBC Hgb Hct MCV MCHC RDW Plt Count Seg Neuts % (Manual) Lymphocytes % (Manual) Nucleated RBC % Seg Neutrophils # Man Lymphocytes # (Manual) Haptoglobin PT INR Fibrinogen Lupus Anticoagulant LA PTT Baseline POC ABG pH POC ABG pCO2 POC ABG pO2 Sodium Potassium Chloride Carbon Dioxide BUN Creatinine Glucose POC Glucose 113 H 117 H 142 H Lactic Acid Uric Acid Calcium Phosphorus Iron TIBC Erythropoietin Ferritin Total Bilirubin Direct Bilirubin AST ALT Alkaline Phosphatase Lactate Dehydrogenase C-Reactive Protein Serum Total Protein Total Protein Albumin Iwhhz-5-Pgkofaanv Abnorm Protein Band 1 PEP Interpretation Crossmatch 10/28/16 10/28/16 10/28/16 05:45 05:45 11:44 WBC 16.6 H RBC 3.18 L Hgb 9.5 L Hct 29.3 L MCV MCHC RDW 17.6 H Plt Count 83 L Seg Neuts % (Manual) 87.0 H Lymphocytes % (Manual) 3.0 L Nucleated RBC % Seg Neutrophils # Man 14.4 H Lymphocytes # (Manual) 0.5 L Haptoglobin PT INR Fibrinogen Lupus Anticoagulant LA PTT Baseline POC ABG pH POC ABG pCO2 POC ABG pO2 Sodium Potassium Chloride 94.6 L Carbon Dioxide 21 L BUN 90 H Creatinine 3.9 H Glucose 152 H POC Glucose 151 H Lactic Acid Uric Acid Calcium 6.9 L Phosphorus Iron TIBC Erythropoietin Ferritin Total Bilirubin Direct Bilirubin AST ALT Alkaline Phosphatase Lactate Dehydrogenase C-Reactive Protein Serum Total Protein Total Protein Albumin Ehsms-3-Nyfzetfia Abnorm Protein Band 1 PEP Interpretation Crossmatch 10/28/16 10/28/16 10/29/16 17:31 23:47 04:53 WBC RBC Hgb Hct MCV MCHC RDW Plt Count Seg Neuts % (Manual) Lymphocytes % (Manual) Nucleated RBC % Seg Neutrophils # Man Lymphocytes # (Manual) Haptoglobin PT INR Fibrinogen Lupus Anticoagulant LA PTT Baseline POC ABG pH POC ABG pCO2 POC ABG pO2 Sodium Potassium Chloride Carbon Dioxide BUN Creatinine Glucose POC Glucose 184 H 124 H 153 H Lactic Acid Uric Acid Calcium Phosphorus Iron TIBC Erythropoietin Ferritin Total Bilirubin Direct Bilirubin AST ALT Alkaline Phosphatase Lactate Dehydrogenase C-Reactive Protein Serum Total Protein Total Protein Albumin [id number] Abnorm Protein Band 1 PEP Interpretation Crossmatch 10/29/16 10/29/16 10/29/16 06:15 06:15 10:58 WBC 14.1 H RBC 3.15 L Hgb 9.6 L Hct 29.1 L MCV MCHC RDW 17.9 H Plt Count 73 L Seg Neuts % (Manual) 93.0 H Lymphocytes % (Manual) 4.0 L Nucleated RBC % Seg Neutrophils # Man 13.1 H Lymphocytes # (Manual) 0.6 L Haptoglobin PT INR Fibrinogen Lupus Anticoagulant LA PTT Baseline POC ABG pH POC ABG pCO2 POC ABG pO2 Sodium Potassium Chloride Carbon Dioxide BUN 58 H Creatinine 2.7 H Glucose 146 H POC Glucose 134 H Lactic Acid Uric Acid Calcium 7.4 L Phosphorus 5.00 H Iron TIBC Erythropoietin Ferritin Total Bilirubin Direct Bilirubin AST ALT Alkaline Phosphatase Lactate Dehydrogenase C-Reactive Protein Serum Total Protein Total Protein Albumin Htbtr-1-Ujyisrkgh Abnorm Protein Band 1 PEP Interpretation Crossmatch Allied health notes reviewed: RT
--- NOTE | 2016-10-29 14:43 | Progress Note ---
Assessment and Plan - Patient Problems (1) Sepsis Current Visit: Yes Status: Acute Qualifiers: Sepsis type: Streptococcus group B Qualified Code(s): A40.1 - Sepsis due to streptococcus, group B Plan to address problem: 1. Continue Vancomycin (present trough 21.3). Duration to be determined as lines were placed while patient was yet bacteremic. 2. Duration for bacteremia is through October 31, 2016 at minimum. 3. Stool negative for Cdiff toxin, but will continue Flagyl. Subjective Date of service: 10/29/16 Principal diagnosis: Sepsis Syndrome; MAHA; RAJESH; CHF; TTP Interval history: Remains in ICU, no fever. Objective - Exam Narrative Exam: intubated, FiO2 25% - Constitutional Vitals: Vital Signs Temp Pulse Resp BP Pulse Ox 98.6 F 79 20 128/84 90 10/29/16 12:00 10/29/16 14:00 10/29/16 14:00 10/29/16 14:00 10/29/16 14:17 Temperature -Last 24 Hours Temperature 98.6 F Temperature 98.4 F Temperature 97.4 F Temperature 99.7 F Temperature 99.7 F Temperature 98.5 F Temperature 98.5 F Temperature 98.5 F - EENT ENT: other (ET and Dobhoff tubes in place) - Respiratory Respiratory: bilateral: CTA - Cardiovascular Rhythm: regular Heart Sounds: Present: S1 & S2 Extremity abnormal: edema - Gastrointestinal General gastrointestinal: Present: soft, non-distended Rectal Exam: other (rectal tube with liquid, brown stool) - Integumentary Integumentary: no rash - Additional findings Additional findings: PICC right arm with inflammation - Labs CBC & Chem 7: 10/29/16 06:15 10/29/16 06:15 Labs: Abnormal lab results 10/28/16 10/28/16 10/29/16 Range/Units 17:31 23:47 04:53 WBC (4.5-11.0) K/mm3 RBC (3.65-5.03) M/mm3 Hgb (11.8-15.2) gm/dl Hct (35.5-45.6) % RDW (13.2-15.2) % Plt Count (140-440) K/mm3 Seg Neuts % (Manual) (40.0-70.0) % Lymphocytes % (Manual) (13.4-35.0) % Seg Neutrophils # Man (1.8-7.7) K/mm3 Lymphocytes # (Manual) (1.2-5.4) K/mm3 BUN (9-20) mg/dL Creatinine (0.8-1.5) mg/dL Glucose (75-100) mg/dL POC Glucose 184 H 124 H 153 H (70-105) Calcium (8.4-10.2) mg/dL Phosphorus (2.5-4.5) mg/dL 10/29/16 10/29/16 10/29/16 Range/Units 06:15 06:15 10:58 WBC 14.1 H (4.5-11.0) K/mm3 RBC 3.15 L (3.65-5.03) M/mm3 Hgb 9.6 L (11.8-15.2) gm/dl Hct 29.1 L (35.5-45.6) % RDW 17.9 H (13.2-15.2) % Plt Count 73 L (140-440) K/mm3 Seg Neuts % (Manual) 93.0 H (40.0-70.0) % Lymphocytes % (Manual) 4.0 L (13.4-35.0) % Seg Neutrophils # Man 13.1 H (1.8-7.7) K/mm3 Lymphocytes # (Manual) 0.6 L (1.2-5.4) K/mm3 BUN 58 H (9-20) mg/dL Creatinine 2.7 H (0.8-1.5) mg/dL Glucose 146 H (75-100) mg/dL POC Glucose 134 H (70-105) Calcium 7.4 L (8.4-10.2) mg/dL Phosphorus 5.00 H (2.5-4.5) mg/dL Microbiology 10/26/16 17:30 Stool C. difficile DNA Amplification - Final 10/16/16 21:15 Peripheral/Venous Blood Culture - Final NO GROWTH AFTER 5 DAYS 10/16/16 20:30 Peripheral/Venous Blood Culture - Final NO GROWTH AFTER 5 DAYS 10/16/16 21:00 Tracheal Aspirate Sputum Culture - Final Sara Albicans 10/14/16 16:15 Peripheral/Venous Blood Culture - Preliminary Beta Hemolytic Strep Group B 10/14/16 15:33 Peripheral/Venous Blood Culture - Preliminary Beta Hemolytic Strep Group B Active Medications Acetaminophen (Tylenol) 1,000 mg WI Q4H PRN PRN Reason: Pain, Mild (1-3) Last Admin: 10/20/16 15:40 Dose: 1,000 mg Acetaminophen (Tylenol) 650 mg FEEDTUBE Q6H PRN PRN Reason: Pain, Mild (1-3) Last Admin: 10/24/16 10:56 Dose: 650 mg Lipase/Protease/Amylase (Pancreaze Dr 10,500 Unit) 1 each FEEDTUBE PRN PRN PRN Reason: For Clogged Feeding Tube Dextrose (D50w (25gm)) 25 ml IV PRN PRN PRN Reason: Hypoglycemia Last Admin: 10/18/16 07:20 Dose: 25 ml Diphenhydramine HCl (Benadryl) 50 mg IV Q6H PRN PRN Reason: Itching Last Admin: 10/24/16 10:57 Dose: 50 mg Famotidine (Pepcid) 20 mg PO Q24H EDWINA Last Admin: 10/29/16 09:45 Dose: 20 mg Haloperidol Lactate (Haldol) 5 mg IM Q6H PRN PRN Reason: Agitation Last Admin: 10/14/16 21:11 Dose: 5 mg Heparin Sodium (Porcine) (Heparin) 10,000 unit IV ROD PRN PRN Reason: for plasmapheresis- vascath Last Admin: 10/25/16 15:40 Dose: 10,000 unit Hydrocortisone Sodium Succinate (Solu-Cortef) 60 mg IV Q8HR EDWINA Last Admin: 10/29/16 13:36 Dose: 60 mg Hydrophilic Ointment (Vaseline Lip Therapy) 1 applic TP Q2H PRN PRN Reason: Dry Lips Sodium Chloride (Nacl 0.9%) 100 mls @ 999 mls/hr IV ROD PRN PRN Reason: Hypotension Propofol (Diprivan 10 Mg/Ml) 1,000 mg in 100 mls @ 1.827 mls/hr IV TITR EDWINA; 5 MCG/KG/MIN PRN Reason: Protocol Last Titration: 10/20/16 10:12 Dose: 0 mcg/kg/min, 0 mls/hr Fentanyl Citrate (Fentanyl Drip Premix) 2,000 mcg in 100 mls @ 3.045 mls/hr IV TITR EDWINA; 1 MCG/KG/HR PRN Reason: Protocol Vancomycin HCl (Vancomycin/Ns 1 Gm/250 Ml) 1 gm in 250 mls @ 167.007 mls/hr IV ONCE ONE Stop: 10/30/16 11:29 Insulin Aspart (Novolog) 0 units SUB-Q Q6HR [facility] PRN Reason: Protocol Last Admin: 10/29/16 11:37 Dose: Not Given Labetalol HCl (Normodyne) 20 mg IV Q6H PRN PRN Reason: Hypertension Last Admin: 10/25/16 05:33 Dose: 20 mg Metoprolol Tartrate (Lopressor) 25 mg PO BID [facility] Last Admin: 10/29/16 09:44 Dose: 25 mg Metronidazole (Flagyl) 500 mg FEEDTUBE Q8H [facility] Last Admin: 10/29/16 11:59 Dose: 500 mg Multi-Ingred Cream/Lotion/Oil/Oint (Artificial Tears Ophth Oint) 1 applic OU Q4H PRN PRN Reason: Dry Eye(s) Ondansetron HCl (Zofran) 4 mg IV Q8H PRN PRN Reason: Nausea And Vomiting Simple Syrup (Simple Syrup) 15 ml FEEDTUBE PRN PRN PRN Reason: Hypoglycemia Simple Syrup (Simple Syrup) 30 ml FEEDTUBE PRN PRN PRN Reason: Hypoglycemia Sodium Bicarbonate (Sodium Bicarbonate) 325 mg FEEDTUBE PRN PRN PRN Reason: For Clogged Feeding Tube Sodium Chloride (Sodium Chloride Flush Syringe 10 Ml) 10 ml IV PRN PRN PRN Reason: LINE FLUSH Last Admin: 10/17/16 20:45 Dose: 10 ml Vancomycin HCl (Vancomycin Pharmacy To Dose) 1 each IV PKCONSULT EDWINA PRN Reason: Protocol
--- NOTE | 2016-10-29 16:40 | XRay Report ---
FINAL REPORT EXAM: XR CHEST 1V AP HISTORY: ETT position TECHNIQUE: Single AP view of the chest PRIORS: Comparison is dated October 16, 2016 FINDINGS: Subcutaneous emphysema and pneumomediastinum seen previously appears resolved ET in satisfactory position tip 3.7 centimeters above the asael. There is a right central venous catheter catheter tip projecting over the cavoatrial junction. Feeding tube is present descending below the diaphragm. Distal tip is not visualized There is a moderate left pleural effusion new since the prior exam. Right lung demonstrates no evidence for infiltrate. No right-sided effusion seen. IMPRESSION: ET in satisfactory position Moderate left pleural effusion new since the prior exam Subcutaneous emphysema seen previously appears resolved
[2016-10-30] MEDS: NOVOLOG SUB-Q SCH ×4 (02:31→18:08)
[2016-10-30] MEDS: FLAGYL FEEDTUBE SCH ×3 (04:20→19:43)
[2016-10-30 07:23] LABS: Hematocrit 28.7 % (35.5-45.6); Hemoglobin 9.3 gm/dl (11.8-15.2); Mean Corpuscular HGB Conc 32 % (32-34); Mean Corpuscular Hemoglobin 30 pg (28-32); Mean Corpuscular Volume 93 fl (84-94); Red Blood Count 3.08 M/mm3 (3.65-5.03); Red Cell Distribution Width 18.4 % (13.2-15.2)
[2016-10-30 07:24] LABS: Platelet Count 73 K/mm3 (140-440)
[2016-10-30 07:41] LABS: BUN/Creatinine Ratio 24.57; Calcium 7.1 mg/dL (8.4-10.2); Chloride 100.9 mmol/L (98-107); Phosphorous 5.9 mg/dL (2.5-4.5); Potassium 4.3 mmol/L (3.6-5.0)
--- NOTE | 2016-10-30 09:32 | Progress Note ---
Assessment and Plan (1) Renal failure Current Visit: Yes Status: Acute Qualifiers: Renal failure chronicity: acute Acute renal failure type: unspecified Chronic kidney disease stage: C Qualified Code(s): N17.9 - Acute kidney failure, unspecified Plan to address problem: no dialysis today, ordered for tomorrow for clearance and volume removal will asses dialysis needs daily and monitor renal recovery closely Strict I/O monitoring Avoid Nephrotoxic agents Renally dose medications Obtain daily weights Monitor renal function daily (2) Acute respiratory failure Current Visit: Yes Status: Acute Qualifiers: Respiratory failure complication: hypoxia Qualified Code(s): J96.01 - Acute respiratory failure with hypoxia Plan to address problem: Intubated as per Pulmonary, possible need for trach (3) Anemia Current Visit: Yes Status: Acute Qualifiers: Anemia type: unspecified type Iron deficiency anemia type: I Vitamin B12 deficiency anemia type: V Folate deficiency anemia type: F Bone marrow failure anemia type: B Hemolytic anemia type: H Other causes of anemia: O Qualified Code(s): D64.9 - Anemia, unspecified Plan to address problem: Monitor labs and transfuse as needed Hematology onboard (4) Thrombocytopenia Current Visit: Yes Status: Acute Plan to address problem: [id number] is pending Hematology onboard (5) Atrial fibrillation Current Visit: Yes Status: Acute Qualifiers: Atrial fibrillation type: A Plan to address problem: followed by cardiology, on BB Subjective Date of service: 10/30/16 Principal diagnosis: Sepsis Syndrome; MAHA; RAJESH; CHF; TTP Interval history: on the vent, does not answer questions, no family at bedside Objective - Vital Signs Vital signs: Vital Signs - 12hr 10/29/16 10/29/16 10/29/16 22:00 22:30 23:00 Temperature Pulse Rate 79 83 79 Pulse Rate [ From Monitor] Pulse Rate [ Left Dorsalis Pedis] Pulse Rate [ Left Radial] Pulse Rate [ Right Dorsalis Pedis] Pulse Rate [ Right Radial] Respiratory 20 22 13 Rate Respiratory 28 H Rate [BILATERAL KNEES] Respiratory 22 Rate [Bilateral Shoulder] Blood Pressure 107/74 107/74 114/75 O2 Sat by Pulse 99 99 98 Oximetry 10/29/16 10/29/16 10/29/16 23:29 23:30 23:52 Temperature 99.0 F Pulse Rate 75 Pulse Rate [ From Monitor] Pulse Rate [ Left Dorsalis Pedis] Pulse Rate [ Left Radial] Pulse Rate [ Right Dorsalis Pedis] Pulse Rate [ Right Radial] Respiratory 19 18 Rate Respiratory Rate [BILATERAL KNEES] Respiratory Rate [Bilateral Shoulder] Blood Pressure 114/75 O2 Sat by Pulse 99 100 Oximetry 10/29/16 10/30/16 10/30/16 23:58 00:00 00:30 Temperature Pulse Rate 72 77 76 Pulse Rate [ From Monitor] Pulse Rate [ Left Dorsalis Pedis] Pulse Rate [ Left Radial] Pulse Rate [ Right Dorsalis Pedis] Pulse Rate [ Right Radial] Respiratory 18 19 18 Rate Respiratory Rate [BILATERAL KNEES] Respiratory Rate [Bilateral Shoulder] Blood Pressure 114/75 103/76 103/76 O2 Sat by Pulse 99 99 100 Oximetry 10/30/16 10/30/16 10/30/16 01:00 01:30 02:00 Temperature Pulse Rate 75 72 73 Pulse Rate [ From Monitor] Pulse Rate [ Left Dorsalis Pedis] Pulse Rate [ Left Radial] Pulse Rate [ Right Dorsalis Pedis] Pulse Rate [ Right Radial] Respiratory 19 18 18 Rate Respiratory Rate [BILATERAL KNEES] Respiratory Rate [Bilateral Shoulder] Blood Pressure 114/81 114/81 107/77 O2 Sat by Pulse 98 99 99 Oximetry 10/30/16 10/30/16 10/30/16 02:30 03:00 03:30 Temperature Pulse Rate 73 77 80 Pulse Rate [ From Monitor] Pulse Rate [ Left Dorsalis Pedis] Pulse Rate [ Left Radial] Pulse Rate [ Right Dorsalis Pedis] Pulse Rate [ Right Radial] Respiratory 19 18 21 Rate Respiratory Rate [BILATERAL KNEES] Respiratory Rate [Bilateral Shoulder] Blood Pressure 107/77 109/80 109/80 O2 Sat by Pulse 99 98 100 Oximetry 10/30/16 10/30/16 10/30/16 03:35 03:45 04:00 Temperature 99.1 F Pulse Rate 80 Pulse Rate [ 78 From Monitor] Pulse Rate [ 78 Left Dorsalis Pedis] Pulse Rate [ 78 Left Radial] Pulse Rate [ 78 Right Dorsalis Pedis] Pulse Rate [ 78 Right Radial] Respiratory 20 21 Rate Respiratory Rate [BILATERAL KNEES] Respiratory Rate [Bilateral Shoulder] Blood Pressure 114/83 O2 Sat by Pulse 100 98 Oximetry 10/30/16 10/30/16 10/30/16 04:30 04:58 05:00 Temperature Pulse Rate 78 76 79 Pulse Rate [ From Monitor] Pulse Rate [ Left Dorsalis Pedis] Pulse Rate [ Left Radial] Pulse Rate [ Right Dorsalis Pedis] Pulse Rate [ Right Radial] Respiratory 20 19 Rate Respiratory Rate [BILATERAL KNEES] Respiratory Rate [Bilateral Shoulder] Blood Pressure 114/83 114/83 99/65 O2 Sat by Pulse 100 99 Oximetry 10/30/16 10/30/16 10/30/16 05:30 06:00 06:10 Temperature Pulse Rate 77 80 81 Pulse Rate [ From Monitor] Pulse Rate [ Left Dorsalis Pedis] Pulse Rate [ Left Radial] Pulse Rate [ Right Dorsalis Pedis] Pulse Rate [ Right Radial] Respiratory 20 23 22 Rate Respiratory Rate [BILATERAL KNEES] Respiratory Rate [Bilateral Shoulder] Blood Pressure 99/65 105/71 105/71 O2 Sat by Pulse 99 99 Oximetry 10/30/16 10/30/16 10/30/16 06:30 07:00 07:30 Temperature Pulse Rate 81 80 83 Pulse Rate [ From Monitor] Pulse Rate [ Left Dorsalis Pedis] Pulse Rate [ Left Radial] Pulse Rate [ Right Dorsalis Pedis] Pulse Rate [ Right Radial] Respiratory 23 20 22 Rate Respiratory Rate [BILATERAL KNEES] Respiratory Rate [Bilateral Shoulder] Blood Pressure 99/65 111/75 111/75 O2 Sat by Pulse 98 99 98 Oximetry 10/30/16 10/30/16 10/30/16 07:57 08:00 09:02 Temperature 99.0 F Pulse Rate 87 84 Pulse Rate [ From Monitor] Pulse Rate [ Left Dorsalis Pedis] Pulse Rate [ Left Radial] Pulse Rate [ Right Dorsalis Pedis] Pulse Rate [ Right Radial] Respiratory 24 22 Rate Respiratory Rate [BILATERAL KNEES] Respiratory Rate [Bilateral Shoulder] Blood Pressure 110/71 101/67 O2 Sat by Pulse 97 97 Oximetry - General Appearance General appearance: intubated EENT: mucous membranes dry Neck: no JVD, no carotid bruit Respiratory: Present: Clear to Ascultation Cardiology: irregular Gastrointestinal: normoactive bowel sounds, no tenderness, no distended Integumentary: no rash, warm and dry Neurologic: other (does not follow commands) Musculoskeletal: other (trace pitting edema in BLE) Psychiatric: other (does not answer questions) - Lab 10/30/16 06:35 10/30/16 06:35 Most recent lab results Calcium 7.1 mg/dL (8.4-10.2) L 10/30/16 06:35 Phosphorus 5.90 mg/dL (2.5-4.5) H 10/30/16 06:35
[2016-10-30] MEDS: LOPRESSOR PO SCH ×2 (09:51→21:24)
[2016-10-30] MEDS: PEPCID PO SCH (09:52)
[2016-10-30] MEDS ORDERED: VANCOMYCIN/NS 1 GM/250 ML 1 GM/250 ML BAG IV ONE (10:00)
--- NOTE | 2016-10-30 11:26 | Consultation ---
History of Present Illness - Reason for Consult Consult date: 10/30/16 - History of Present Illness Patient resting in bed, Past History Past Medical History: hypertension, other (Had shingles in November 25-) Past Surgical History: No surgical history Social history: , full code, other (Patienti s and lives with his ). denies: smoking, alcohol abuse, prescription drug abuse, IV drug use Family history: no significant family history Medications and Allergies Allergies Allergy/AdvReac Type Severity Reaction Status Date / Time No Known Allergies Allergy Unverified 10/13/16 09:41 Home Medications Medication Instructions Recorded Confirmed Last Taken Type Naproxen Sodium [Aleve TAB] 2 tab PO Q8H PRN 10/13/16 10/13/16 10/12/16 14:00 History Active Meds: Active Medications Acetaminophen (Tylenol) 1,000 mg IA Q4H PRN PRN Reason: Pain, Mild (1-3) Last Admin: 10/20/16 15:40 Dose: 1,000 mg Acetaminophen (Tylenol) 650 mg FEEDTUBE Q6H PRN PRN Reason: Pain, Mild (1-3) Last Admin: 10/24/16 10:56 Dose: 650 mg Lipase/Protease/Amylase (Pancreaze Dr 10,500 Unit) 1 each FEEDTUBE PRN PRN PRN Reason: For Clogged Feeding Tube Dextrose (D50w (25gm)) 25 ml IV PRN PRN PRN Reason: Hypoglycemia Last Admin: 10/18/16 07:20 Dose: 25 ml Diphenhydramine HCl (Benadryl) 50 mg IV Q6H PRN PRN Reason: Itching Last Admin: 10/24/16 10:57 Dose: 50 mg Famotidine (Pepcid) 20 mg PO Q24H EDWINA Last Admin: 10/30/16 09:52 Dose: 20 mg Haloperidol Lactate (Haldol) 5 mg IM Q6H PRN PRN Reason: Agitation Last Admin: 10/14/16 21:11 Dose: 5 mg Heparin Sodium (Porcine) (Heparin) 10,000 unit IV ROD PRN PRN Reason: for plasmapheresis- vascath Last Admin: 10/25/16 15:40 Dose: 10,000 unit Hydrocortisone Sodium Succinate (Solu-Cortef) 60 mg IV Q8HR EDWINA Last Admin: 10/30/16 06:41 Dose: 60 mg Hydrophilic Ointment (Vaseline Lip Therapy) 1 applic TP Q2H PRN PRN Reason: Dry Lips Sodium Chloride (Nacl 0.9%) 100 mls @ 999 mls/hr IV ROD PRN PRN Reason: Hypotension Propofol (Diprivan 10 Mg/Ml) 1,000 mg in 100 mls @ 1.827 mls/hr IV TITR EDWINA; 5 MCG/KG/MIN PRN Reason: Protocol Last Titration: 10/20/16 10:12 Dose: 0 mcg/kg/min, 0 mls/hr Fentanyl Citrate (Fentanyl Drip Premix) 2,000 mcg in 100 mls @ 3.045 mls/hr IV TITR EDWINA; 1 MCG/KG/HR PRN Reason: Protocol Vancomycin HCl (Vancomycin/Ns 1 Gm/250 Ml) 1 gm in 250 mls @ 167.007 mls/hr IV ONCE ONE Stop: 10/30/16 11:29 Last Admin: 10/30/16 09:52 Dose: 167.007 mls/hr Insulin Aspart (Novolog) 0 units SUB-Q Q6HR EDWINA PRN Reason: Protocol Last Admin: 10/30/16 06:40 Dose: Not Given Labetalol HCl (Normodyne) 20 mg IV Q6H PRN PRN Reason: Hypertension Last Admin: 10/25/16 05:33 Dose: 20 mg Metoprolol Tartrate (Lopressor) 25 mg PO BID [facility] Last Admin: 10/30/16 09:51 Dose: 25 mg Metronidazole (Flagyl) 500 mg FEEDTUBE Q8H [facility] Last Admin: 10/30/16 04:20 Dose: 500 mg Multi-Ingred Cream/Lotion/Oil/Oint (Artificial Tears Ophth Oint) 1 applic OU Q4H PRN PRN Reason: Dry Eye(s) Ondansetron HCl (Zofran) 4 mg IV Q8H PRN PRN Reason: Nausea And Vomiting Simple Syrup (Simple Syrup) 15 ml FEEDTUBE PRN PRN PRN Reason: Hypoglycemia Simple Syrup (Simple Syrup) 30 ml FEEDTUBE PRN PRN PRN Reason: Hypoglycemia Sodium Bicarbonate (Sodium Bicarbonate) 325 mg FEEDTUBE PRN PRN PRN Reason: For Clogged Feeding Tube Sodium Chloride (Sodium Chloride Flush Syringe 10 Ml) 10 ml IV PRN PRN PRN Reason: LINE FLUSH Last Admin: 10/17/16 20:45 Dose: 10 ml Vancomycin HCl (Vancomycin Pharmacy To Dose) 1 each IV PKCONSULT EDWINA PRN Reason: Protocol Review of Systems Constitutional: other (on the vent) Exam - Constitutional Vitals: Temp Pulse Resp BP Pulse Ox 99.0 F 83 20 101/67 97 10/30/16 07:57 10/30/16 09:51 10/30/16 09:30 10/30/16 09:51 10/30/16 09:30 General appearance: Present: severe distress - EENT Eyes: Present: PERRL - Neck Neck: Present: supple, normal ROM - Cardiovascular Heart Sounds: Present: S1 & S2. Absent: rub, click - Extremities Extremities: pulses symmetrical, No edema Peripheral Pulses: within normal limits - Abdominal General gastrointestinal: Present: soft, non-tender, non-distended, normal bowel sounds Male genitourinary: Present: deferred - Rectal Rectal Exam: deferred - Integumentary Integumentary: Present: clear, warm, dry Results - Labs CBC & Chem 7: 10/30/16 06:35 10/30/16 06:35 Labs: Abnormal lab results 10/29/16 10/29/16 10/29/16 Range/Units 06:15 10:58 17:06 WBC (4.5-11.0) K/mm3 RBC (3.65-5.03) M/mm3 Hgb (11.8-15.2) gm/dl Hct (35.5-45.6) % RDW (13.2-15.2) % Plt Count (140-440) K/mm3 Seg Neuts % (Manual) 93.0 H (40.0-70.0) % Lymphocytes % (Manual) 4.0 L (13.4-35.0) % Seg Neutrophils # Man 13.1 H (1.8-7.7) K/mm3 Lymphocytes # (Manual) 0.6 L (1.2-5.4) K/mm3 BUN (9-20) mg/dL Creatinine (0.8-1.5) mg/dL Glucose (75-100) mg/dL POC Glucose 134 H 158 H (70-105) Calcium (8.4-10.2) mg/dL Phosphorus (2.5-4.5) mg/dL 10/29/16 10/30/16 10/30/16 Range/Units 23:28 05:16 06:35 WBC 13.0 H (4.5-11.0) K/mm3 RBC 3.08 L (3.65-5.03) M/mm3 Hgb 9.3 L (11.8-15.2) gm/dl Hct 28.7 L (35.5-45.6) % RDW 18.4 H (13.2-15.2) % Plt Count 73 L (140-440) K/mm3 Seg Neuts % (Manual) (40.0-70.0) % Lymphocytes % (Manual) (13.4-35.0) % Seg Neutrophils # Man (1.8-7.7) K/mm3 Lymphocytes # (Manual) (1.2-5.4) K/mm3 BUN (9-20) mg/dL Creatinine (0.8-1.5) mg/dL Glucose (75-100) mg/dL POC Glucose 133 H 147 H (70-105) Calcium (8.4-10.2) mg/dL Phosphorus (2.5-4.5) mg/dL 10/30/16 Range/Units 06:35 WBC (4.5-11.0) K/mm3 RBC (3.65-5.03) M/mm3 Hgb (11.8-15.2) gm/dl Hct (35.5-45.6) % RDW (13.2-15.2) % Plt Count (140-440) K/mm3 Seg Neuts % (Manual) (40.0-70.0) % Lymphocytes % (Manual) (13.4-35.0) % Seg Neutrophils # Man (1.8-7.7) K/mm3 Lymphocytes # (Manual) (1.2-5.4) K/mm3 BUN 86 H (9-20) mg/dL Creatinine 3.5 H (0.8-1.5) mg/dL Glucose 132 H (75-100) mg/dL POC Glucose (70-105) Calcium 7.1 L (8.4-10.2) mg/dL Phosphorus 5.90 H (2.5-4.5) mg/dL Assessment and Plan - Patient Problems (1) Anemia Current Visit: Yes Status: Acute Qualifiers: Anemia type: unspecified type Iron deficiency anemia type: I Vitamin B12 deficiency anemia type: V Folate deficiency anemia type: F Bone marrow failure anemia type: B Hemolytic anemia type: H Other causes of anemia: O Qualified Code(s): D64.9 - Anemia, unspecified Plan to address problem: post transfusion. remains stable. (2) Leucopenia Current Visit: Yes Status: Acute Qualifiers: Leukopenia type: unspecified Neutropenia type: N Qualified Code(s): D72.819 - Decreased white blood cell count, unspecified Plan to address problem: same as above. resolved. Same as above (3) Renal failure Current Visit: Yes Status: Acute Qualifiers: Renal failure chronicity: acute Acute renal failure type: unspecified Chronic kidney disease stage: C Qualified Code(s): N17.9 - Acute kidney failure, unspecified Plan to address problem: See w/up, and renal service. see notes Follow chief deputy.
--- NOTE | 2016-10-30 14:56 | Progress Note ---
Assessment and Plan Assessment and plan: 61-year-old -[place] male with no significant past medical history presented to the emergency department complaining of bilateral leg swelling that worsened for the last 4 days. The swelling is progressed gradually. Patient denied shortness of breath, orthopenia, PND, palpitations or dizziness. Patient denied bleeding from any sites of his body. Patient has never seen a physician for the last 5 years. Patient checked his blood pressure regularly at [facility] was usually in the normal limit. Patient has been taking Aleve since Monday for leg swelling. Patient denied any chest pain. * Acute metabolic encephalopathy * AFIB WITH RVR * beta hemolitic strep BACTERIMIA * Acute Respiratory failure with hypoxia >96 HRS ON MECHANICAL VENTILATION * Possible hemorrhagic infarct/or hemorrhagic conversion of bland infarct * Pancytopenia [leukopenia, severe anemia, Woresening thrombocytopenia] POSSIBLE LYMPHOMA * ?DIC * End-stage renal disease * secondary coagulopathy * Lactic acidosis * Probable TTP, HUS, Amyloidosis * persistent hypoglycemia * Acute systolic congestive heart failure EF around 30% * SEVERE SEPSIS plan: * critically ill * Dylon pending, * Nephrology following, interval dialysis * Intubated and on full ventilatory support * Continue abx, DYLON pending * Continue PLASMAPHERSIS, * Transfuse as needed * ON HD also. * DYLON IF CULTURES REMAIN POSITIVE TO R/O ENDOCARDITIS * continue amiodarone * ADAMTS 13 pending, if negative it business process architect plans for Biopsy * Continue supportive care in the ICU, discussed with manager ent. * Nebulizer treatment * ID input noted, CDiff negative. Continue flagyl * Neurology input noted * DVT/GI prophy * plan of care discussed in detail with spouse * Patient is critically sick * AWAITING FAMILY CONSENT FOR TRACH/PEG * 35 mins critical care time spent. NO FAMILY AT BEDSIDE History Interval history: Patient seen and examined this morning remains IN FULL VENTILATORY SUPPORT, NO OTHER ADVERSE EVENT NOTED. Hospitalist Physical - Physical exam Narrative exam: VITAL SIGNS: Reviewed. GENERAL: sedated and intubated HEAD: No signs of head trauma. EYES: Pupils are equal. EARS: Hearing grossly intact. MOUTH: ETT NECK: No adenopathy, no JVD. CHEST: Chest with diminished, breath sounds bilaterally. CRACKLES, INCREASED WORK OF BREATHING CARDIAC: Irregularly irregular rate and rythm. S1 and S2, without murmurs, gallops, or rubs. VASCULAR: EDEMA UPPER EXT AND LOWER +3. Peripheral pulses normal and equal in all extremities. ABDOMEN: Soft, without detectable tenderness. No sign of distention. No rebound or guarding, and no masses palpated. Bowel Sounds normal. MUSCULOSKELETAL: Good range of motion of all major joints. Extremities without clubbing, cyanosis. +EDEMA UPPER AND LOWER EXT. NEUROLOGIC EXAM: sedated and intubated SKIN: multiple echymosis and bullea - Constitutional Vitals: Temp Pulse Resp BP Pulse Ox 98.8 F 79 22 113/78 98 10/30/16 12:00 10/30/16 13:30 10/30/16 13:30 10/30/16 13:30 10/30/16 13:30 General appearance: Present: severe distress Results - Labs CBC & Chem 7: 10/30/16 06:35 10/30/16 06:35 Labs: Laboratory Last Values WBC 13.0 K/mm3 (4.5-11.0) H 10/30/16 06:35 RBC 3.08 M/mm3 (3.65-5.03) L 10/30/16 06:35 Hgb 9.3 gm/dl (11.8-15.2) L 10/30/16 06:35 Hct 28.7 % (35.5-45.6) L 10/30/16 06:35 MCV 93 fl (84-94) 10/30/16 06:35 MCH 30 pg (28-32) 10/30/16 06:35 MCHC 32 % (32-34) 10/30/16 06:35 RDW 18.4 % (13.2-15.2) H 10/30/16 06:35 Plt Count 73 K/mm3 (140-440) L 10/30/16 06:35 Lymph % (Auto) Undergraduate Advisor 10/14/16 04:34 [place] % (Auto) Undergraduate Advisor 10/14/16 04:34 Eos % (Auto) Undergraduate Advisor 10/14/16 04:34 Baso % (Auto) Undergraduate Advisor 10/14/16 04:34 Lymph # Undergraduate Advisor 10/14/16 04:34 [place] # Undergraduate Advisor 10/14/16 04:34 Eos # Undergraduate Advisor 10/14/16 04:34 Baso # Undergraduate Advisor 10/14/16 04:34 Add Manual Diff Complete 10/29/16 06:15 Total Counted 100 10/29/16 06:15 Seg Neutrophils % Undergraduate Advisor 10/29/16 06:15 Seg Neuts % (Manual) 93.0 % (40.0-70.0) H 10/29/16 06:15 Band Neutrophils % 0 % 10/29/16 06:15 Lymphocytes % (Manual) 4.0 % (13.4-35.0) L 10/29/16 06:15 Reactive Lymphs % (Man) 0 % 10/29/16 06:15 Monocytes % (Manual) 3.0 % (0.0-7.3) 10/29/16 06:15 Eosinophils % (Manual) 0 % (0.0-4.3) 10/29/16 06:15 Basophils % (Manual) 0 % (0.0-1.8) 10/29/16 06:15 Metamyelocytes % 0 % 10/29/16 06:15 Myelocytes % 0 % 10/29/16 06:15 Promyelocytes % 0 % 10/29/16 06:15 Blast Cells % 0 % 10/29/16 06:15 Nucleated RBC % Not Reportable 10/29/16 06:15 Seg Neutrophils # Undergraduate Advisor 10/14/16 04:34 Seg Neutrophils # Man 13.1 K/mm3 (1.8-7.7) H 10/29/16 06:15 Band Neutrophils # 0.0 K/mm3 10/29/16 06:15 Lymphocytes # (Manual) 0.6 K/mm3 (1.2-5.4) L 10/29/16 06:15 Abs React Lymphs (Man) 0.0 K/mm3 10/29/16 06:15 Monocytes # (Manual) 0.4 K/mm3 (0.0-0.8) 10/29/16 06:15 Eosinophils # (Manual) 0.0 K/mm3 (0.0-0.4) 10/29/16 06:15 Basophils # (Manual) 0.0 K/mm3 (0.0-0.1) 10/29/16 06:15 Metamyelocytes # 0.0 K/mm3 10/29/16 06:15 Myelocytes # 0.0 K/mm3 10/29/16 06:15 Promyelocytes # 0.0 K/mm3 10/29/16 06:15 Blast Cells # 0.0 K/mm3 10/29/16 06:15 WBC Morphology Not Reportable 10/29/16 06:15 Hypersegmented Neuts Not Reportable 10/29/16 06:15 Hyposegmented Neuts Not Reportable 10/29/16 06:15 Hypogranular Neuts Not Reportable 10/29/16 06:15 Smudge Cells Not Reportable 10/29/16 06:15 Toxic Granulation Not Reportable 10/29/16 06:15 Toxic Vacuolation Not Reportable 10/29/16 06:15 Dohle Bodies Not Reportable 10/29/16 06:15 Pelger-Huet Anomaly Not Reportable 10/29/16 06:15 Madhu Rods Not Reportable 10/29/16 06:15 Platelet Estimate Consistent w auto 10/29/16 06:15 Clumped Platelets Not Reportable 10/29/16 06:15 Plt Clumps, EDTA Not Reportable 10/29/16 06:15 Large Platelets Not Reportable 10/29/16 06:15 Giant Platelets Not Reportable 10/29/16 06:15 Platelet Satelliting Not Reportable 10/29/16 06:15 Plt Morphology Comment Not Reportable 10/29/16 06:15 RBC Morphology Not Reportable 10/29/16 06:15 Dimorphic RBCs Not Reportable 10/29/16 06:15 Polychromasia Not Reportable 10/29/16 06:15 Hypochromasia Not Reportable 10/29/16 06:15 Poikilocytosis Not Reportable 10/29/16 06:15 Basophilic Stippling Rare 10/21/16 10:30 Anisocytosis 1+ 10/29/16 06:15 Microcytosis Not Reportable 10/29/16 06:15 Macrocytosis 1+ 10/29/16 06:15 Spherocytes Not Reportable 10/29/16 06:15 Pappenheimer Bodies Not Reportable 10/29/16 06:15 Sickle Cells Not Reportable 10/29/16 06:15 Target Cells Not Reportable 10/29/16 06:15 Tear Drop Cells Not Reportable 10/29/16 06:15 Ovalocytes Not Reportable 10/29/16 06:15 Stomatocytes Few 10/28/16 05:45 Helmet Cells Not Reportable 10/29/16 06:15 [place] Bodies Not Reportable 10/29/16 06:15 [place] Rings Not Reportable 10/29/16 06:15 Colby Cells Not Reportable 10/29/16 06:15 Bite Cells Not Reportable 10/29/16 06:15 Crenated Cell Not Reportable 10/29/16 06:15 Elliptocytes Not Reportable 10/29/16 06:15 Acanthocytes (Spur) Not Reportable 10/29/16 06:15 Rouleaux Not Reportable 10/29/16 06:15 Hemoglobin C Crystals Not Reportable 10/29/16 06:15 Schistocytes Not Reportable 10/29/16 06:15 Malaria parasites Not Reportable 10/29/16 06:15 ESR 77 mm/Hr (0-20) 10/14/16 04:34 Pal Bodies Not Reportable 10/29/16 06:15 Haptoglobin <15 mg/dL (43-212) L 10/15/16 12:00 Hem Pathologist Commnt No 10/29/16 06:15 PT 23.0 Sec. (12.2-14.9) H 10/27/16 08:14 INR 2.03 (0.87-1.13) H 10/27/16 08:14 Fibrinogen 557 mg/dl (211-480) H 10/14/16 09:58 Lupus Anticoagulant see below H 10/14/16 03:00 LA PTT Baseline 55 sec (<=40) H 10/14/16 03:00 dRVVT Confirm Interp Negative (Negative) 10/14/16 03:00 POC ABG pH 7.410 (7.35-7.45) 10/28/16 12:51 POC ABG pCO2 37.8 (35-45) 10/28/16 12:51 POC ABG pO2 93 (80-105) 10/28/16 12:51 POC ABG HCO3 24.0 10/28/16 12:51 POC ABG Total CO2 25 10/28/16 12:51 POC ABG O2 Sat 97 10/28/16 12:51 POC ABG Base Excess -1 10/28/16 12:51 FiO2 25 % 10/28/16 12:51 Sodium 141 mmol/L (137-145) 10/30/16 06:35 Potassium 4.3 mmol/L (3.6-5.0) 10/30/16 06:35 Chloride 100.9 mmol/L (98-107) 10/30/16 06:35 Carbon Dioxide 22 mmol/L (22-30) 10/30/16 06:35 Anion Gap 22 mmol/L 10/30/16 06:35 BUN 86 mg/dL (9-20) H 10/30/16 06:35 Creatinine 3.5 mg/dL (0.8-1.5) H 10/30/16 06:35 Estimated GFR 18 ml/min 10/30/16 06:35 BUN/Creatinine Ratio 24.57 % 10/30/16 06:35 Glucose 132 mg/dL (75-100) H 10/30/16 06:35 POC Glucose 134 (70-105) H 10/30/16 12:08 Lactic Acid 3.10 mmol/L (0.7-2.0) H* 10/24/16 18:40 Uric Acid 8.0 mg/dL (3.5-7.6) H 10/14/16 03:00 Calcium 7.1 mg/dL (8.4-10.2) L 10/30/16 06:35 Phosphorus 5.90 mg/dL (2.5-4.5) H 10/30/16 06:35 Iron 146 ug/dL (49-181) 10/15/16 05:35 TIBC 166 mcg/dL (250-450) L 10/15/16 05:35 Erythropoietin 148.2 mIU/mL (2.6-18.5) H 10/19/16 14:15 Ferritin 9562.0 ng/mL (13.0-400.0) H 10/15/16 05:35 Total Bilirubin 2.10 mg/dL (0.1-1.2) H 10/24/16 07:00 Direct Bilirubin 1.1 mg/dL (0-0.2) H 10/14/16 09:58 Indirect Bilirubin 0.2 mg/dL 10/14/16 09:58 AST 68 units/L (5-40) H 10/24/16 07:00 ALT 46 units/L (7-56) 10/24/16 07:00 Alkaline Phosphatase 224 units/L (35-129) H 10/24/16 07:00 Ammonia 32.0 umol/L (25-60) 10/19/16 14:15 Lactate Dehydrogenase 3871 units/L (91-180) H 10/15/16 05:35 Troponin T 0.079 ng/mL (0.00-0.029) H 10/13/16 10:14 C-Reactive Protein 7.40 mg/dL (0.00-1.30) H 10/24/16 16:30 NT-Pro-B Natriuret Pep > 29266 pg/mL (0-900) H 10/13/16 10:14 Serum Total Protein 5.6 g/dL (6.1-8.1) L 10/13/16 14:50 Total Protein 4.8 g/dL (6.3-8.2) L 10/24/16 07:00 Albumin 2.3 g/dL (3.9-5) L 10/24/16 07:00 Albumin/Globulin Ratio 0.9 % 10/24/16 07:00 Jjaij-8-[id number] 0.5 g/dL (0.2-0.3) H 10/13/16 14:50 Rzhqj-4-Hrhgfpvbl 0.6 g/dL (0.5-0.9) 10/13/16 14:50 Beta Globulins 0.3 g/dL (0.2-0.5) 10/13/16 14:50 Gamma Globulins 1.7 g/dL (0.8-1.7) 10/13/16 14:50 Abnorm Protein Band 1 1.4 g/dL H 10/13/16 14:50 PEP Interpretation see below H 10/13/16 14:50 Triglycerides 119 mg/dL (2-149) 10/13/16 10:14 Cholesterol 71 mg/dL (50-199) 10/13/16 10:14 LDL Cholesterol Direct 41 mg/dL (50-130) L 10/13/16 10:14 HDL Cholesterol 7 mg/dL (40-59) L 10/13/16 10:14 Cholesterol/HDL Ratio 10.14 % 10/13/16 10:14 Lipase 21 units/L (13-60) 10/15/16 05:35 Vitamin B12 893.9 pg/mL (211-911) 10/14/16 03:00 TSH 0.526 mlU/mL (0.270-4.200) 10/19/16 14:15 Random Vancomycin 21.3 ug/mL (0-40.0) 10/29/16 12:00 IgG 1040 mg/dL (694-1618) 10/19/16 14:15 IgA 149 mg/dL (81-463) 10/19/16 14:15 IgM 53 mg/dL (48-271) 10/19/16 14:15 XU Screen Negative (Negative) 10/13/16 14:50 Proteinase 3 (PR3) Ab <1.0 AI (<1.0) 10/13/16 14:50 Myeloperoxidase Ab <1.0 AI (<1.0) 10/13/16 14:50 Glomerular Base Mem IgG <1.0 AI (<1.0) 10/13/16 14:50 Complement C3 101 mg/dL (90-180) 10/13/16 14:50 Complement C4 16 mg/dL (16-47) 10/13/16 14:50 Hep Bs Antigen Non-reactive (Negative) 10/13/16 14:50 Hepatitis C Antibody Non-reactive (NonReactive) 10/13/16 14:50 HIV 1&2 Antibody Rapid Non react (Non React) 10/13/16 14:50 HIV P24 Antigen Non react (Non React) 10/13/16 14:50 Schistocytes Smear None seen 10/15/16 12:00 Flow Intrp 16+ Markers Scanned into [facility] rec 10/14/16 11:30 Flow Cytometry Interp Scanned into [facility] rec 10/14/16 11:30 Blood Type O POSITIVE 10/24/16 11:45 Antibody Screen TNR 10/24/16 11:45 MADIHA Antibody Screen Negative 10/24/16 11:45 Direct Antiglob Test Negative 10/14/16 03:00 ELAINE, Poly Interpret Negative 10/14/16 03:00 Crossmatch See Detail 10/24/16 11:45
--- NOTE | 2016-10-30 17:07 | Progress Note ---
Assessment and Plan Had another conversation with his and also his daughter about a bedside tracheostomy and PEG. Reviewed the procedures and risks again. Answered their questions until they said they understood and did not have any more questions. They still want to think about the procedures more. Subjective Date of service: 10/30/16 Patient Reports: Positive: no new complaints Objective Vital Signs - 12hr 10/30/16 10/30/16 10/30/16 05:30 06:00 06:10 Temperature Pulse Rate 77 80 81 Respiratory 20 23 22 Rate Blood Pressure 99/65 105/71 105/71 O2 Sat by Pulse 99 99 Oximetry 10/30/16 10/30/16 10/30/16 06:30 07:00 07:30 Temperature Pulse Rate 81 80 83 Respiratory 23 20 22 Rate Blood Pressure 99/65 111/75 111/75 O2 Sat by Pulse 98 99 98 Oximetry 10/30/16 10/30/16 10/30/16 07:57 08:00 08:30 Temperature 99.0 F Pulse Rate 87 82 Respiratory 24 21 Rate Blood Pressure 110/71 110/71 O2 Sat by Pulse 97 98 Oximetry 10/30/16 10/30/16 10/30/16 09:00 09:02 09:30 Temperature Pulse Rate 84 84 79 Respiratory 21 22 20 Rate Blood Pressure 101/67 101/67 101/67 O2 Sat by Pulse 98 97 97 Oximetry 10/30/16 10/30/16 10/30/16 09:51 10:00 10:44 Temperature Pulse Rate 83 81 76 Respiratory 23 Rate Blood Pressure 101/67 103/71 103/71 O2 Sat by Pulse 98 Oximetry 10/30/16 10/30/16 10/30/16 11:00 11:30 12:00 Temperature 98.8 F Pulse Rate 76 80 84 Respiratory 22 22 22 Rate Blood Pressure 117/84 103/71 120/91 O2 Sat by Pulse 100 99 Oximetry 10/30/16 10/30/16 10/30/16 12:26 12:30 13:00 Temperature Pulse Rate 80 78 78 Respiratory 23 19 19 Rate Blood Pressure 120/91 120/91 113/78 O2 Sat by Pulse 100 99 99 Oximetry 10/30/16 10/30/16 10/30/16 13:30 14:00 14:30 Temperature Pulse Rate 79 79 82 Respiratory 22 20 22 Rate Blood Pressure 113/78 115/80 115/80 O2 Sat by Pulse 98 99 99 Oximetry 10/30/16 10/30/16 10/30/16 15:00 15:30 15:43 Temperature Pulse Rate 79 79 79 Respiratory 20 19 19 Rate Blood Pressure 108/73 108/73 108/73 O2 Sat by Pulse 98 99 99 Oximetry 10/30/16 10/30/16 16:00 16:30 Temperature 98.9 F Pulse Rate 80 83 Respiratory 21 23 Rate Blood Pressure 110/79 110/79 O2 Sat by Pulse 99 99 Oximetry - Labs 10/30/16 06:35 10/30/16 06:35 Diabetes panel 10/30/16 Range/Units 06:35 Sodium 141 (137-145) mmol/L Potassium 4.3 (3.6-5.0) mmol/L Chloride 100.9 (98-107) mmol/L Carbon Dioxide 22 (22-30) mmol/L BUN 86 H (9-20) mg/dL Creatinine 3.5 H (0.8-1.5) mg/dL Glucose 132 H (75-100) mg/dL Calcium 7.1 L (8.4-10.2) mg/dL Calcium panel 10/30/16 Range/Units 06:35 Calcium 7.1 L (8.4-10.2) mg/dL Phosphorus 5.90 H (2.5-4.5) mg/dL Pituitary panel 10/30/16 Range/Units 06:35 Sodium 141 (137-145) mmol/L Potassium 4.3 (3.6-5.0) mmol/L Chloride 100.9 (98-107) mmol/L Carbon Dioxide 22 (22-30) mmol/L BUN 86 H (9-20) mg/dL Creatinine 3.5 H (0.8-1.5) mg/dL Glucose 132 H (75-100) mg/dL Calcium 7.1 L (8.4-10.2) mg/dL Adrenal panel 10/30/16 Range/Units 06:35 Sodium 141 (137-145) mmol/L Potassium 4.3 (3.6-5.0) mmol/L Chloride 100.9 (98-107) mmol/L Carbon Dioxide 22 (22-30) mmol/L BUN 86 H (9-20) mg/dL Creatinine 3.5 H (0.8-1.5) mg/dL Glucose 132 H (75-100) mg/dL Calcium 7.1 L (8.4-10.2) mg/dL
--- NOTE | 2016-10-30 18:45 | Progress Note ---
Assessment and Plan Patient resting on pressure support ventilation. Pressure support 8 and FIO2 25% , O2 saturation 93%.Patient not responding to stimuli. Srgry consulted for trach and PEG. Family thinking about those procedures. - Patient Problems (1) Acute respiratory failure Current Visit: Yes Status: Acute Qualifiers: Respiratory failure complication: hypoxia Qualified Code(s): J96.01 - Acute respiratory failure with hypoxia Plan to address problem: Patient intubated and on mechanical ventilation. Patient presently on PS 8 cm H2O pressure and FIO2 25%. SCDs Continue Famotidine. (2) Pleural effusion, left Current Visit: Yes Status: Acute Plan to address problem: Obtaining ultrasound of chest. (3) RAJESH (acute kidney injury) Current Visit: Yes Status: Acute Plan to address problem: Management as per nephrology. (4) Acute encephalopathy Current Visit: Yes Status: Acute Plan to address problem: Management as per primary care and neurology. (5) Atrial fibrillation Current Visit: Yes Status: Acute Qualifiers: Atrial fibrillation type: A Plan to address problem: Management as per primary and cardiology. (6) CHF (congestive heart failure) Current Visit: Yes Status: Acute Qualifiers: Congestive heart failure type: C Congestive heart failure chronicity: C Plan to address problem: Management as per primary and cardiology. Subjective Date of service: 10/30/16 Principal diagnosis: Sepsis Syndrome; MAHA; RAJESH; CHF; TTP Interval history: Patient resting on pressure support ventilation. Pressure support 8 and FIO2 25% , O2 saturation 93%.Patient not responding to stimuli. Srgry consulted for trach and PEG. Family thinking about those procedures. Objective Vital Signs - 12hr 10/30/16 10/30/16 10/30/16 07:00 07:30 07:57 Temperature 99.0 F Pulse Rate 80 83 Respiratory 20 22 Rate Blood Pressure 111/75 111/75 O2 Sat by Pulse 99 98 Oximetry 10/30/16 10/30/16 10/30/16 08:00 08:30 09:00 Temperature Pulse Rate 87 82 84 Respiratory 24 21 21 Rate Blood Pressure 110/71 110/71 101/67 O2 Sat by Pulse 97 98 98 Oximetry 10/30/16 10/30/16 10/30/16 09:02 09:30 09:51 Temperature Pulse Rate 84 79 83 Respiratory 22 20 Rate Blood Pressure 101/67 101/67 101/67 O2 Sat by Pulse 97 97 Oximetry 10/30/16 10/30/16 10/30/16 10:00 10:44 11:00 Temperature Pulse Rate 81 76 76 Respiratory 23 22 Rate Blood Pressure 103/71 103/71 117/84 O2 Sat by Pulse 98 Oximetry 10/30/16 10/30/16 10/30/16 11:30 12:00 12:26 Temperature 98.8 F Pulse Rate 80 84 80 Respiratory 22 22 23 Rate Blood Pressure 103/71 120/91 120/91 O2 Sat by Pulse 100 99 100 Oximetry 10/30/16 10/30/16 10/30/16 12:30 13:00 13:30 Temperature Pulse Rate 78 78 79 Respiratory 19 19 22 Rate Blood Pressure 120/91 113/78 113/78 O2 Sat by Pulse 99 99 98 Oximetry 10/30/16 10/30/16 10/30/16 14:00 14:30 15:00 Temperature Pulse Rate 79 82 79 Respiratory 20 22 20 Rate Blood Pressure 115/80 115/80 108/73 O2 Sat by Pulse 99 99 98 Oximetry 10/30/16 10/30/16 10/30/16 15:30 15:43 16:00 Temperature 98.9 F Pulse Rate 79 79 86 Respiratory 19 19 21 Rate Blood Pressure 108/73 108/73 110/79 O2 Sat by Pulse 99 99 99 Oximetry 10/30/16 10/30/16 10/30/16 16:30 17:00 17:30 Temperature Pulse Rate 83 80 82 Respiratory 23 21 22 Rate Blood Pressure 110/79 108/77 108/77 O2 Sat by Pulse 99 98 99 Oximetry 10/30/16 18:00 Temperature Pulse Rate 80 Respiratory 20 Rate Blood Pressure 109/75 O2 Sat by Pulse 96 Oximetry Constitutional: no acute distress, lethargic Eyes: non-icteric ENT: oropharynx moist Neck: supple, no lymphadenopathy Effort: normal Ascultation: Bilateral: diminished breath sounds, rales (scant in bases) Cardiovascular: irregular rhythm Gastrointestinal: normoactive bowel sounds, soft, non-tender, non-distended Integumentary: normal Extremities: no cyanosis, pulses normal, no ischemia or petechiae, edema Neurologic: non-focal exam (grossly), pupils equal and round, unable to assess Psychiatric: other (unable to assess) CBC and BMP: 10/30/16 06:35 10/30/16 06:35 ABG, PT/INR, D-dimer: ABG POC ABG pH 7.410 (7.35-7.45) 10/28/16 12:51 POC ABG pCO2 37.8 (35-45) 10/28/16 12:51 POC ABG pO2 93 (80-105) 10/28/16 12:51 POC ABG HCO3 24.0 10/28/16 12:51 POC ABG Total CO2 25 10/28/16 12:51 POC ABG O2 Sat 97 10/28/16 12:51 PT/INR, D-dimer PT 23.0 Sec. (12.2-14.9) H 10/27/16 08:14 INR 2.03 (0.87-1.13) H 10/27/16 08:14 Abnormal lab findings: Abnormal Labs 10/13/16 10/13/16 10/13/16 14:50 21:40 22:05 WBC RBC Hgb Hct MCV MCHC RDW Plt Count Seg Neuts % (Manual) Lymphocytes % (Manual) Nucleated RBC % Seg Neutrophils # Man Lymphocytes # (Manual) Haptoglobin PT INR Fibrinogen Lupus Anticoagulant LA PTT Baseline POC ABG pH POC ABG pCO2 POC ABG pO2 Sodium Potassium Chloride Carbon Dioxide BUN Creatinine Glucose POC Glucose 52 L 43 L Lactic Acid Uric Acid Calcium Phosphorus Iron TIBC Erythropoietin Ferritin Total Bilirubin Direct Bilirubin AST ALT Alkaline Phosphatase Lactate Dehydrogenase C-Reactive Protein Serum Total Protein 5.6 L Total Protein Albumin 2.2 L Ymnxi-5-Nphdjnykj 0.5 H Abnorm Protein Band 1 1.4 H PEP Interpretation see below H Crossmatch 10/13/16 10/14/16 10/14/16 23:18 03:00 03:00 WBC RBC Hgb Hct MCV MCHC RDW Plt Count Seg Neuts % (Manual) Lymphocytes % (Manual) Nucleated RBC % Seg Neutrophils # Man Lymphocytes # (Manual) Haptoglobin PT INR Fibrinogen Lupus Anticoagulant see below H LA PTT Baseline 55 H POC ABG pH POC ABG pCO2 POC ABG pO2 Sodium Potassium Chloride Carbon Dioxide BUN Creatinine Glucose POC Glucose 113 H Lactic Acid Uric Acid Calcium Phosphorus Iron TIBC Erythropoietin Ferritin Total Bilirubin Direct Bilirubin AST ALT Alkaline Phosphatase Lactate Dehydrogenase 406 H C-Reactive Protein Serum Total Protein Total Protein Albumin Mtsgj-3-Lpxjztljd Abnorm Protein Band 1 PEP Interpretation Crossmatch 10/14/16 10/14/16 10/14/16 03:00 03:00 04:34 WBC 1.3 L* RBC 2.33 L Hgb 7.3 L Hct 21.7 L MCV MCHC RDW 19.8 H Plt Count 99 L Seg Neuts % (Manual) Lymphocytes % (Manual) 3.0 L Nucleated RBC % Seg Neutrophils # Man 0.9 L Lymphocytes # (Manual) 0.0 L Haptoglobin PT INR Fibrinogen Lupus Anticoagulant LA PTT Baseline POC ABG pH POC ABG pCO2 POC ABG pO2 Sodium Potassium Chloride Carbon Dioxide 18 L BUN 73 H Creatinine 9.8 H Glucose 59 L POC Glucose Lactic Acid Uric Acid 8.0 H Calcium 8.2 L Phosphorus 6.60 H Iron 13 L TIBC 160 L Erythropoietin Ferritin Total Bilirubin Direct Bilirubin AST ALT Alkaline Phosphatase Lactate Dehydrogenase C-Reactive Protein Serum Total Protein Total Protein Albumin Iokow-8-Pstbklsrd Abnorm Protein Band 1 PEP Interpretation Crossmatch 10/14/16 10/14/16 10/14/16 05:27 06:29 07:34 WBC RBC Hgb Hct MCV MCHC RDW Plt Count Seg Neuts % (Manual) Lymphocytes % (Manual) Nucleated RBC % Seg Neutrophils # Man Lymphocytes # (Manual) Haptoglobin PT INR Fibrinogen Lupus Anticoagulant LA PTT Baseline POC ABG pH POC ABG pCO2 POC ABG pO2 Sodium Potassium Chloride Carbon Dioxide BUN Creatinine Glucose POC Glucose < 40 L 63 L < 40 L Lactic Acid Uric Acid Calcium Phosphorus Iron TIBC Erythropoietin Ferritin Total Bilirubin Direct Bilirubin AST ALT Alkaline Phosphatase Lactate Dehydrogenase C-Reactive Protein Serum Total Protein Total Protein Albumin Zyfnj-1-Vupoqyqcd Abnorm Protein Band 1 PEP Interpretation Crossmatch 10/14/16 10/14/16 10/14/16 09:58 09:58 09:58 WBC RBC Hgb Hct MCV MCHC RDW Plt Count Seg Neuts % (Manual) Lymphocytes % (Manual) Nucleated RBC % Seg Neutrophils # Man Lymphocytes # (Manual) Haptoglobin 218 H PT INR Fibrinogen 557 H Lupus Anticoagulant LA PTT Baseline POC ABG pH POC ABG pCO2 POC ABG pO2 Sodium Potassium Chloride Carbon Dioxide BUN Creatinine Glucose POC Glucose Lactic Acid Uric Acid Calcium Phosphorus Iron TIBC Erythropoietin Ferritin Total Bilirubin 1.30 H Direct Bilirubin 1.1 H AST ALT Alkaline Phosphatase Lactate Dehydrogenase C-Reactive Protein Serum Total Protein Total Protein Albumin Tkzph-1-Hrnosdqnf Abnorm Protein Band 1 PEP Interpretation Crossmatch 10/14/16 10/14/16 10/14/16 10:57 11:15 12:52 WBC RBC Hgb Hct MCV MCHC RDW Plt Count Seg Neuts % (Manual) Lymphocytes % (Manual) Nucleated RBC % Seg Neutrophils # Man Lymphocytes # (Manual) Haptoglobin PT INR Fibrinogen Lupus Anticoagulant LA PTT Baseline POC ABG pH POC ABG pCO2 POC ABG pO2 Sodium Potassium Chloride Carbon Dioxide BUN Creatinine Glucose POC Glucose < 40 L < 40 L Lactic Acid 9.60 H* Uric Acid Calcium Phosphorus Iron TIBC Erythropoietin Ferritin Total Bilirubin Direct Bilirubin AST ALT Alkaline Phosphatase Lactate Dehydrogenase C-Reactive Protein Serum Total Protein Total Protein Albumin Kycpp-1-Jsycfmyvc Abnorm Protein Band 1 PEP Interpretation Crossmatch 10/14/16 10/14/16 10/14/16 12:52 13:17 14:12 WBC RBC Hgb Hct MCV MCHC RDW Plt Count Seg Neuts % (Manual) Lymphocytes % (Manual) Nucleated RBC % Seg Neutrophils # Man Lymphocytes # (Manual) Haptoglobin PT INR Fibrinogen Lupus Anticoagulant LA PTT Baseline POC ABG pH POC ABG pCO2 POC ABG pO2 Sodium Potassium Chloride Carbon Dioxide BUN Creatinine Glucose POC Glucose < 40 L < 40 L Lactic Acid Uric Acid Calcium Phosphorus Iron TIBC Erythropoietin Ferritin Total Bilirubin Direct Bilirubin AST ALT Alkaline Phosphatase Lactate Dehydrogenase C-Reactive Protein 40.40 H Serum Total Protein Total Protein Albumin Jyaul-2-Fhdpqfyhx Abnorm Protein Band 1 PEP Interpretation Crossmatch 10/14/16 10/14/16 10/14/16 15:02 15:33 15:33 WBC RBC Hgb Hct MCV MCHC RDW Plt Count Seg Neuts % (Manual) Lymphocytes % (Manual) Nucleated RBC % Seg Neutrophils # Man Lymphocytes # (Manual) Haptoglobin PT INR Fibrinogen Lupus Anticoagulant LA PTT Baseline POC ABG pH POC ABG pCO2 POC ABG pO2 Sodium Potassium Chloride Carbon Dioxide BUN Creatinine Glucose 19 L* POC Glucose < 40 L Lactic Acid 11.60 H* Uric Acid Calcium Phosphorus Iron TIBC Erythropoietin Ferritin Total Bilirubin Direct Bilirubin AST ALT Alkaline Phosphatase Lactate Dehydrogenase C-Reactive Protein Serum Total Protein Total Protein Albumin Wcgux-4-Treyzxtvq Abnorm Protein Band 1 PEP Interpretation Crossmatch 10/14/16 10/14/16 10/14/16 17:14 18:03 21:25 WBC RBC Hgb Hct MCV MCHC RDW Plt Count Seg Neuts % (Manual) Lymphocytes % (Manual) Nucleated RBC % Seg Neutrophils # Man Lymphocytes # (Manual) Haptoglobin PT 28.9 H INR 2.71 H Fibrinogen Lupus Anticoagulant LA PTT Baseline POC ABG pH POC ABG pCO2 POC ABG pO2 Sodium Potassium Chloride Carbon Dioxide BUN Creatinine Glucose POC Glucose < 40 L 57 L Lactic Acid Uric Acid Calcium Phosphorus Iron TIBC Erythropoietin Ferritin Total Bilirubin Direct Bilirubin AST ALT Alkaline Phosphatase Lactate Dehydrogenase C-Reactive Protein Serum Total Protein Total Protein Albumin Qcxdn-3-Cflycvawb Abnorm Protein Band 1 PEP Interpretation Crossmatch 10/15/16 10/15/16 10/15/16 05:32 05:35 05:35 WBC RBC 2.62 L Hgb 8.1 L Hct 25.8 L MCV 98 H D MCHC 31 L RDW 21.2 H Plt Count 61 L Seg Neuts % (Manual) 27.0 L Lymphocytes % (Manual) 10.0 L Nucleated RBC % 2.0 H Seg Neutrophils # Man Lymphocytes # (Manual) 0.8 L Haptoglobin PT INR Fibrinogen Lupus Anticoagulant LA PTT Baseline POC ABG pH POC ABG pCO2 POC ABG pO2 Sodium Potassium Chloride Carbon Dioxide BUN Creatinine Glucose POC Glucose < 40 L Lactic Acid Uric Acid Calcium Phosphorus Iron TIBC Erythropoietin Ferritin Total Bilirubin Direct Bilirubin AST ALT Alkaline Phosphatase Lactate Dehydrogenase 3871 H C-Reactive Protein Serum Total Protein Total Protein Albumin Rzksj-9-Mjlvbukil Abnorm Protein Band 1 PEP Interpretation Crossmatch 10/15/16 10/15/16 10/15/16 05:35 05:35 05:35 WBC RBC Hgb Hct MCV MCHC RDW Plt Count Seg Neuts % (Manual) Lymphocytes % (Manual) Nucleated RBC % Seg Neutrophils # Man Lymphocytes # (Manual) Haptoglobin PT INR Fibrinogen Lupus Anticoagulant LA PTT Baseline POC ABG pH POC ABG pCO2 POC ABG pO2 Sodium 136 L Potassium 5.3 H D Chloride 91.4 L Carbon Dioxide 6 L* D BUN 57 H Creatinine 7.1 H Glucose 11 L* POC Glucose Lactic Acid 13.60 H* Uric Acid Calcium 7.7 L Phosphorus 10.10 H D Iron TIBC 166 L Erythropoietin Ferritin 9562.0 H Total Bilirubin Direct Bilirubin AST ALT Alkaline Phosphatase Lactate Dehydrogenase C-Reactive Protein Serum Total Protein Total Protein Albumin Ldfxr-4-Axgqsjwlb Abnorm Protein Band 1 PEP Interpretation Crossmatch 10/15/16 10/15/16 10/15/16 05:51 06:22 06:52 WBC RBC Hgb Hct MCV MCHC RDW Plt Count Seg Neuts % (Manual) Lymphocytes % (Manual) Nucleated RBC % Seg Neutrophils # Man Lymphocytes # (Manual) Haptoglobin PT INR Fibrinogen Lupus Anticoagulant LA PTT Baseline POC ABG pH 7.189 L POC ABG pCO2 28.9 L POC ABG pO2 Sodium Potassium Chloride Carbon Dioxide BUN Creatinine Glucose POC Glucose 59 L 111 H Lactic Acid Uric Acid Calcium Phosphorus Iron TIBC Erythropoietin Ferritin Total Bilirubin Direct Bilirubin AST ALT Alkaline Phosphatase Lactate Dehydrogenase C-Reactive Protein Serum Total Protein Total Protein Albumin Gsrcu-6-Evdralvnl Abnorm Protein Band 1 PEP Interpretation Crossmatch 10/15/16 10/15/16 10/15/16 08:00 09:57 11:42 WBC RBC Hgb Hct MCV MCHC RDW Plt Count Seg Neuts % (Manual) Lymphocytes % (Manual) Nucleated RBC % Seg Neutrophils # Man Lymphocytes # (Manual) Haptoglobin PT INR Fibrinogen Lupus Anticoagulant LA PTT Baseline POC ABG pH POC ABG pCO2 POC ABG pO2 Sodium Potassium Chloride Carbon Dioxide BUN Creatinine Glucose POC Glucose 63 L 143 H 203 H Lactic Acid Uric Acid Calcium Phosphorus Iron TIBC Erythropoietin Ferritin Total Bilirubin Direct Bilirubin AST ALT Alkaline Phosphatase Lactate Dehydrogenase C-Reactive Protein Serum Total Protein Total Protein Albumin Rglyx-8-Tugxumbpq Abnorm Protein Band 1 PEP Interpretation Crossmatch 10/15/16 10/15/16 10/15/16 12:00 12:00 13:00 WBC RBC Hgb Hct MCV MCHC RDW Plt Count Seg Neuts % (Manual) Lymphocytes % (Manual) Nucleated RBC % Seg Neutrophils # Man Lymphocytes # (Manual) Haptoglobin <15 L PT INR Fibrinogen Lupus Anticoagulant LA PTT Baseline POC ABG pH POC ABG pCO2 POC ABG pO2 Sodium Potassium Chloride Carbon Dioxide BUN Creatinine Glucose POC Glucose 136 H Lactic Acid 16.30 H* Uric Acid Calcium Phosphorus Iron TIBC Erythropoietin Ferritin Total Bilirubin Direct Bilirubin AST ALT Alkaline Phosphatase Lactate Dehydrogenase C-Reactive Protein Serum Total Protein Total Protein Albumin Yqbwa-3-Kqnrurebu Abnorm Protein Band 1 PEP Interpretation Crossmatch 10/15/16 10/15/16 10/15/16 14:06 15:15 16:23 WBC RBC Hgb Hct MCV MCHC RDW Plt Count Seg Neuts % (Manual) Lymphocytes % (Manual) Nucleated RBC % Seg Neutrophils # Man Lymphocytes # (Manual) Haptoglobin PT INR Fibrinogen Lupus Anticoagulant LA PTT Baseline POC ABG pH POC ABG pCO2 POC ABG pO2 Sodium Potassium Chloride Carbon Dioxide BUN Creatinine Glucose POC Glucose 132 H 64 L Lactic Acid 20.40 H* Uric Acid Calcium Phosphorus Iron TIBC Erythropoietin Ferritin Total Bilirubin Direct Bilirubin AST ALT Alkaline Phosphatase Lactate Dehydrogenase C-Reactive Protein Serum Total Protein Total Protein Albumin Bzkeq-0-Mrhirfego Abnorm Protein Band 1 PEP Interpretation Crossmatch 10/15/16 10/15/16 10/15/16 16:40 17:00 17:10 WBC RBC Hgb Hct MCV MCHC RDW Plt Count Seg Neuts % (Manual) Lymphocytes % (Manual) Nucleated RBC % Seg Neutrophils # Man Lymphocytes # (Manual) Haptoglobin PT INR Fibrinogen Lupus Anticoagulant LA PTT Baseline POC ABG pH 7.323 L POC ABG pCO2 25.8 L POC ABG pO2 135 H Sodium Potassium Chloride Carbon Dioxide BUN Creatinine Glucose POC Glucose 159 H Lactic Acid 20.20 H* Uric Acid Calcium Phosphorus Iron TIBC Erythropoietin Ferritin Total Bilirubin Direct Bilirubin AST ALT Alkaline Phosphatase Lactate Dehydrogenase C-Reactive Protein Serum Total Protein Total Protein Albumin Xbqep-0-Dkaiagtbj Abnorm Protein Band 1 PEP Interpretation Crossmatch 10/15/16 10/15/16 10/15/16 17:46 17:53 18:45 WBC RBC Hgb Hct MCV MCHC RDW Plt Count Seg Neuts % (Manual) Lymphocytes % (Manual) Nucleated RBC % Seg Neutrophils # Man Lymphocytes # (Manual) Haptoglobin PT INR Fibrinogen Lupus Anticoagulant LA PTT Baseline POC ABG pH POC ABG pCO2 POC ABG pO2 Sodium Potassium Chloride Carbon Dioxide BUN Creatinine Glucose POC Glucose 126 H 143 H Lactic Acid 21.40 H* Uric Acid Calcium Phosphorus Iron TIBC Erythropoietin Ferritin Total Bilirubin Direct Bilirubin AST ALT Alkaline Phosphatase Lactate Dehydrogenase C-Reactive Protein Serum Total Protein Total Protein Albumin Bvurd-3-Ddpzshmsq Abnorm Protein Band 1 PEP Interpretation Crossmatch 10/15/16 10/15/16 10/16/16 20:03 22:59 00:06 WBC RBC Hgb Hct MCV MCHC RDW Plt Count Seg Neuts % (Manual) Lymphocytes % (Manual) Nucleated RBC % Seg Neutrophils # Man Lymphocytes # (Manual) Haptoglobin PT INR Fibrinogen Lupus Anticoagulant LA PTT Baseline POC ABG pH POC ABG pCO2 POC ABG pO2 Sodium Potassium Chloride Carbon Dioxide BUN Creatinine Glucose POC Glucose 66 L 53 L 126 H Lactic Acid Uric Acid Calcium Phosphorus Iron TIBC Erythropoietin Ferritin Total Bilirubin Direct Bilirubin AST ALT Alkaline Phosphatase Lactate Dehydrogenase C-Reactive Protein Serum Total Protein Total Protein Albumin Dlgqb-1-Uucycugms Abnorm Protein Band 1 PEP Interpretation Crossmatch 10/16/16 10/16/16 10/16/16 01:03 03:55 04:00 WBC RBC Hgb Hct MCV MCHC RDW Plt Count Seg Neuts % (Manual) Lymphocytes % (Manual) Nucleated RBC % Seg Neutrophils # Man Lymphocytes # (Manual) Haptoglobin PT INR Fibrinogen Lupus Anticoagulant LA PTT Baseline POC ABG pH POC ABG pCO2 POC ABG pO2 Sodium Potassium Chloride Carbon Dioxide BUN Creatinine Glucose POC Glucose 107 H 260 H Lactic Acid 18.00 H* Uric Acid Calcium Phosphorus Iron TIBC Erythropoietin Ferritin Total Bilirubin Direct Bilirubin AST ALT Alkaline Phosphatase Lactate Dehydrogenase C-Reactive Protein Serum Total Protein Total Protein Albumin Wbqzo-1-Apgytipni Abnorm Protein Band 1 PEP Interpretation Crossmatch 10/16/16 10/16/16 10/16/16 04:03 07:58 08:34 WBC RBC Hgb Hct MCV MCHC RDW Plt Count Seg Neuts % (Manual) Lymphocytes % (Manual) Nucleated RBC % Seg Neutrophils # Man Lymphocytes # (Manual) Haptoglobin PT INR Fibrinogen Lupus Anticoagulant LA PTT Baseline POC ABG pH 7.527 H POC ABG pCO2 32.9 L POC ABG pO2 119 H Sodium Potassium Chloride Carbon Dioxide BUN Creatinine Glucose POC Glucose 120 H 66 L Lactic Acid Uric Acid Calcium Phosphorus Iron TIBC Erythropoietin Ferritin Total Bilirubin Direct Bilirubin AST ALT Alkaline Phosphatase Lactate Dehydrogenase C-Reactive Protein Serum Total Protein Total Protein Albumin Ifntl-2-Vvuhbkzqn Abnorm Protein Band 1 PEP Interpretation Crossmatch 10/16/16 10/16/16 10/16/16 09:13 10:06 10:57 WBC RBC Hgb Hct MCV MCHC RDW Plt Count Seg Neuts % (Manual) Lymphocytes % (Manual) Nucleated RBC % Seg Neutrophils # Man Lymphocytes # (Manual) Haptoglobin PT INR Fibrinogen Lupus Anticoagulant LA PTT Baseline POC ABG pH POC ABG pCO2 POC ABG pO2 Sodium Potassium Chloride Carbon Dioxide BUN Creatinine Glucose POC Glucose 147 H 137 H 140 H Lactic Acid Uric Acid Calcium Phosphorus Iron TIBC Erythropoietin Ferritin Total Bilirubin Direct Bilirubin AST ALT Alkaline Phosphatase Lactate Dehydrogenase C-Reactive Protein Serum Total Protein Total Protein Albumin Zfuwd-2-Pxbefmszf Abnorm Protein Band 1 PEP Interpretation Crossmatch 10/16/16 10/16/16 10/16/16 11:15 11:15 11:15 WBC 25.8 H RBC 2.30 L Hgb 7.0 L Hct 22.3 L MCV 97 H MCHC 31 L RDW 21.2 H Plt Count 42 L Seg Neuts % (Manual) Lymphocytes % (Manual) 3.0 L Nucleated RBC % 2.0 H Seg Neutrophils # Man 11.1 H Lymphocytes # (Manual) 0.8 L Haptoglobin PT INR Fibrinogen Lupus Anticoagulant LA PTT Baseline POC ABG pH POC ABG pCO2 POC ABG pO2 Sodium Potassium Chloride 81.7 L Carbon Dioxide 13 L D BUN 61 H Creatinine 6.2 H Glucose 171 H POC Glucose Lactic Acid 22.70 H* Uric Acid Calcium 7.1 L Phosphorus 9.10 H Iron TIBC Erythropoietin Ferritin Total Bilirubin Direct Bilirubin AST ALT Alkaline Phosphatase Lactate Dehydrogenase C-Reactive Protein Serum Total Protein Total Protein Albumin Ywsos-2-Pdgikbyfx Abnorm Protein Band 1 PEP Interpretation Crossmatch 10/16/16 10/16/16 10/16/16 15:10 15:50 18:11 WBC RBC Hgb Hct MCV MCHC RDW Plt Count Seg Neuts % (Manual) Lymphocytes % (Manual) Nucleated RBC % Seg Neutrophils # Man Lymphocytes # (Manual) Haptoglobin PT INR Fibrinogen Lupus Anticoagulant LA PTT Baseline POC ABG pH POC ABG pCO2 POC ABG pO2 Sodium Potassium Chloride Carbon Dioxide BUN Creatinine Glucose POC Glucose 47 L 164 H 58 L Lactic Acid Uric Acid Calcium Phosphorus Iron TIBC Erythropoietin Ferritin Total Bilirubin Direct Bilirubin AST ALT Alkaline Phosphatase Lactate Dehydrogenase C-Reactive Protein Serum Total Protein Total Protein Albumin Veleo-9-Nulaqglrb Abnorm Protein Band 1 PEP Interpretation Crossmatch 10/16/16 10/16/16 10/17/16 18:26 21:06 00:06 WBC RBC Hgb Hct MCV MCHC RDW Plt Count Seg Neuts % (Manual) Lymphocytes % (Manual) Nucleated RBC % Seg Neutrophils # Man Lymphocytes # (Manual) Haptoglobin PT INR Fibrinogen Lupus Anticoagulant LA PTT Baseline POC ABG pH POC ABG pCO2 POC ABG pO2 489 H Sodium Potassium Chloride Carbon Dioxide BUN Creatinine Glucose POC Glucose 52 L 120 H Lactic Acid Uric Acid Calcium Phosphorus Iron TIBC Erythropoietin Ferritin Total Bilirubin Direct Bilirubin AST ALT Alkaline Phosphatase Lactate Dehydrogenase C-Reactive Protein Serum Total Protein Total Protein Albumin Bozhb-2-Oinmcneub Abnorm Protein Band 1 PEP Interpretation Crossmatch 10/17/16 10/17/16 10/17/16 04:55 04:55 05:04 WBC 25.5 H RBC 2.23 L Hgb 6.6 L Hct 21.2 L MCV 95 H MCHC 31 L RDW 20.5 H Plt Count 35 L Seg Neuts % (Manual) 79.0 H Lymphocytes % (Manual) 0 L Nucleated RBC % Seg Neutrophils # Man 20.1 H Lymphocytes # (Manual) 0.0 L Haptoglobin PT INR Fibrinogen Lupus Anticoagulant LA PTT Baseline POC ABG pH POC ABG pCO2 27.2 L POC ABG pO2 162 H Sodium Potassium Chloride 91.5 L Carbon Dioxide 16 L BUN 45 H Creatinine 4.5 H Glucose 103 H POC Glucose Lactic Acid Uric Acid Calcium 6.9 L Phosphorus 5.80 H D Iron TIBC Erythropoietin Ferritin Total Bilirubin Direct Bilirubin AST ALT Alkaline Phosphatase Lactate Dehydrogenase C-Reactive Protein Serum Total Protein Total Protein Albumin Zqvsl-2-Msezdsvyl Abnorm Protein Band 1 PEP Interpretation Crossmatch 10/17/16 10/17/16 10/17/16 07:59 09:04 10:04 WBC RBC Hgb Hct MCV MCHC RDW Plt Count Seg Neuts % (Manual) Lymphocytes % (Manual) Nucleated RBC % Seg Neutrophils # Man Lymphocytes # (Manual) Haptoglobin PT INR Fibrinogen Lupus Anticoagulant LA PTT Baseline POC ABG pH POC ABG pCO2 POC ABG pO2 Sodium Potassium Chloride Carbon Dioxide BUN Creatinine Glucose POC Glucose 65 L 118 H Lactic Acid Uric Acid Calcium Phosphorus Iron TIBC Erythropoietin Ferritin Total Bilirubin Direct Bilirubin AST ALT Alkaline Phosphatase Lactate Dehydrogenase C-Reactive Protein Serum Total Protein Total Protein Albumin Ujhcq-3-Illiwrfcs Abnorm Protein Band 1 PEP Interpretation Crossmatch See Detail 10/17/16 10/17/16 10/17/16 11:52 13:08 15:42 WBC RBC Hgb Hct MCV MCHC RDW Plt Count Seg Neuts % (Manual) Lymphocytes % (Manual) Nucleated RBC % Seg Neutrophils # Man Lymphocytes # (Manual) Haptoglobin PT INR Fibrinogen Lupus Anticoagulant LA PTT Baseline POC ABG pH POC ABG pCO2 POC ABG pO2 Sodium Potassium Chloride Carbon Dioxide BUN Creatinine Glucose POC Glucose 125 H 106 H 55 L Lactic Acid Uric Acid Calcium Phosphorus Iron TIBC Erythropoietin Ferritin Total Bilirubin Direct Bilirubin AST ALT Alkaline Phosphatase Lactate Dehydrogenase C-Reactive Protein Serum Total Protein Total Protein Albumin Rbvxs-8-Corzlmdax Abnorm Protein Band 1 PEP Interpretation Crossmatch 10/17/16 10/17/16 10/17/16 17:39 20:37 21:02 WBC RBC Hgb Hct MCV MCHC RDW Plt Count Seg Neuts % (Manual) Lymphocytes % (Manual) Nucleated RBC % Seg Neutrophils # Man Lymphocytes # (Manual) Haptoglobin PT INR Fibrinogen Lupus Anticoagulant LA PTT Baseline POC ABG pH POC ABG pCO2 28.2 L POC ABG pO2 Sodium Potassium Chloride Carbon Dioxide BUN Creatinine Glucose POC Glucose < 40 L 106 H Lactic Acid Uric Acid Calcium Phosphorus Iron TIBC Erythropoietin Ferritin Total Bilirubin Direct Bilirubin AST ALT Alkaline Phosphatase Lactate Dehydrogenase C-Reactive Protein Serum Total Protein Total Protein Albumin Nktsr-1-Oxnloywaz Abnorm Protein Band 1 PEP Interpretation Crossmatch 10/17/16 10/17/16 10/18/16 22:18 23:14 00:28 WBC RBC Hgb Hct MCV MCHC RDW Plt Count Seg Neuts % (Manual) Lymphocytes % (Manual) Nucleated RBC % Seg Neutrophils # Man Lymphocytes # (Manual) Haptoglobin PT INR Fibrinogen Lupus Anticoagulant LA PTT Baseline POC ABG pH POC ABG pCO2 POC ABG pO2 Sodium Potassium Chloride Carbon Dioxide BUN Creatinine Glucose POC Glucose 111 H 118 H 112 H Lactic Acid Uric Acid Calcium Phosphorus Iron TIBC Erythropoietin Ferritin Total Bilirubin Direct Bilirubin AST ALT Alkaline Phosphatase Lactate Dehydrogenase C-Reactive Protein Serum Total Protein Total Protein Albumin Expea-2-Hmymjjiwu Abnorm Protein Band 1 PEP Interpretation Crossmatch 10/18/16 10/18/16 10/18/16 05:00 05:00 05:15 WBC 27.3 H RBC 2.75 L Hgb 7.9 L Hct 25.3 L MCV MCHC 31 L RDW 20.7 H Plt Count 31 L Seg Neuts % (Manual) 87.0 H Lymphocytes % (Manual) 1.0 L Nucleated RBC % 1.0 H Seg Neutrophils # Man 23.8 H Lymphocytes # (Manual) 0.3 L Haptoglobin PT INR Fibrinogen Lupus Anticoagulant LA PTT Baseline POC ABG pH 7.466 H POC ABG pCO2 25.1 L POC ABG pO2 Sodium Potassium Chloride 88.7 L Carbon Dioxide 18 L BUN 66 H Creatinine 4.7 H Glucose POC Glucose Lactic Acid Uric Acid Calcium 6.1 L Phosphorus 7.30 H D Iron TIBC Erythropoietin Ferritin Total Bilirubin Direct Bilirubin AST ALT Alkaline Phosphatase Lactate Dehydrogenase C-Reactive Protein Serum Total Protein Total Protein Albumin Lijkb-0-Yyxnozvaz Abnorm Protein Band 1 PEP Interpretation Crossmatch 10/18/16 10/18/16 10/18/16 07:15 07:44 09:07 WBC RBC Hgb Hct MCV MCHC RDW Plt Count Seg Neuts % (Manual) Lymphocytes % (Manual) Nucleated RBC % Seg Neutrophils # Man Lymphocytes # (Manual) Haptoglobin PT INR Fibrinogen Lupus Anticoagulant LA PTT Baseline POC ABG pH POC ABG pCO2 POC ABG pO2 Sodium Potassium Chloride Carbon Dioxide BUN Creatinine Glucose POC Glucose 64 L 156 H 117 H Lactic Acid Uric Acid Calcium Phosphorus Iron TIBC Erythropoietin Ferritin Total Bilirubin Direct Bilirubin AST ALT Alkaline Phosphatase Lactate Dehydrogenase C-Reactive Protein Serum Total Protein Total Protein Albumin Zgzog-4-Mlapzqbhr Abnorm Protein Band 1 PEP Interpretation Crossmatch 10/18/16 10/18/16 10/18/16 09:15 14:00 18:21 WBC RBC Hgb Hct MCV MCHC RDW Plt Count Seg Neuts % (Manual) Lymphocytes % (Manual) Nucleated RBC % Seg Neutrophils # Man Lymphocytes # (Manual) Haptoglobin PT INR Fibrinogen Lupus Anticoagulant LA PTT Baseline POC ABG pH POC ABG pCO2 POC ABG pO2 Sodium Potassium Chloride Carbon Dioxide BUN Creatinine Glucose POC Glucose 106 H 112 H Lactic Acid 14.30 H* Uric Acid Calcium Phosphorus Iron TIBC Erythropoietin Ferritin Total Bilirubin Direct Bilirubin AST ALT Alkaline Phosphatase Lactate Dehydrogenase C-Reactive Protein Serum Total Protein Total Protein Albumin Asugh-0-Wndrhuzod Abnorm Protein Band 1 PEP Interpretation Crossmatch 10/18/16 10/18/16 10/18/16 19:58 20:55 22:11 WBC RBC Hgb Hct MCV MCHC RDW Plt Count Seg Neuts % (Manual) Lymphocytes % (Manual) Nucleated RBC % Seg Neutrophils # Man Lymphocytes # (Manual) Haptoglobin PT INR Fibrinogen Lupus Anticoagulant LA PTT Baseline POC ABG pH POC ABG pCO2 POC ABG pO2 Sodium Potassium Chloride Carbon Dioxide BUN Creatinine Glucose POC Glucose 127 H 125 H 159 H Lactic Acid Uric Acid Calcium Phosphorus Iron TIBC Erythropoietin Ferritin Total Bilirubin Direct Bilirubin AST ALT Alkaline Phosphatase Lactate Dehydrogenase C-Reactive Protein Serum Total Protein Total Protein Albumin Lduwx-0-Relnnnbrk Abnorm Protein Band 1 PEP Interpretation Crossmatch 10/18/16 10/18/16 10/19/16 23:11 23:57 01:06 WBC RBC Hgb Hct MCV MCHC RDW Plt Count Seg Neuts % (Manual) Lymphocytes % (Manual) Nucleated RBC % Seg Neutrophils # Man Lymphocytes # (Manual) Haptoglobin PT INR Fibrinogen Lupus Anticoagulant LA PTT Baseline POC ABG pH POC ABG pCO2 POC ABG pO2 Sodium Potassium Chloride Carbon Dioxide BUN Creatinine Glucose POC Glucose 122 H 137 H 162 H Lactic Acid Uric Acid Calcium Phosphorus Iron TIBC Erythropoietin Ferritin Total Bilirubin Direct Bilirubin AST ALT Alkaline Phosphatase Lactate Dehydrogenase C-Reactive Protein Serum Total Protein Total Protein Albumin Jqawr-4-Cvsrzijqi Abnorm Protein Band 1 PEP Interpretation Crossmatch 05/10/19/16 10/19/16 01:59 03:07 04:10 WBC RBC Hgb Hct MCV MCHC RDW Plt Count Seg Neuts % (Manual) Lymphocytes % (Manual) Nucleated RBC % Seg Neutrophils # Man Lymphocytes # (Manual) Haptoglobin PT INR Fibrinogen Lupus Anticoagulant LA PTT Baseline POC ABG pH POC ABG pCO2 POC ABG pO2 Sodium Potassium Chloride Carbon Dioxide BUN Creatinine Glucose POC Glucose 154 H 178 H 186 H Lactic Acid Uric Acid Calcium Phosphorus Iron TIBC Erythropoietin Ferritin Total Bilirubin Direct Bilirubin AST ALT Alkaline Phosphatase Lactate Dehydrogenase C-Reactive Protein Serum Total Protein Total Protein Albumin Zudfn-6-Arqjwqrxh Abnorm Protein Band 1 PEP Interpretation Crossmatch 10/19/16 10/19/16 10/19/16 05:14 05:15 05:47 WBC RBC Hgb Hct MCV MCHC RDW Plt Count Seg Neuts % (Manual) Lymphocytes % (Manual) Nucleated RBC % Seg Neutrophils # Man Lymphocytes # (Manual) Haptoglobin PT INR Fibrinogen Lupus Anticoagulant LA PTT Baseline POC ABG pH 7.581 H POC ABG pCO2 22.9 L POC ABG pO2 58 L Sodium Potassium Chloride Carbon Dioxide BUN Creatinine Glucose POC Glucose 197 H 204 H Lactic Acid Uric Acid Calcium Phosphorus Iron TIBC Erythropoietin Ferritin Total Bilirubin Direct Bilirubin AST ALT Alkaline Phosphatase Lactate Dehydrogenase C-Reactive Protein Serum Total Protein Total Protein Albumin Mnsdg-7-Eroipdwgv Abnorm Protein Band 1 PEP Interpretation Crossmatch 10/19/16 10/19/16 10/19/16 06:00 06:00 07:51 WBC 23.0 H RBC 2.54 L Hgb 7.5 L Hct 23.0 L MCV MCHC RDW 20.7 H Plt Count 25 L Seg Neuts % (Manual) 91.0 H Lymphocytes % (Manual) 2.0 L Nucleated RBC % 1.0 H Seg Neutrophils # Man 20.9 H Lymphocytes # (Manual) 0.5 L Haptoglobin PT INR Fibrinogen Lupus Anticoagulant LA PTT Baseline POC ABG pH POC ABG pCO2 POC ABG pO2 Sodium Potassium Chloride 88.7 L Carbon Dioxide 21 L BUN 70 H Creatinine 3.9 H Glucose 189 H POC Glucose 145 H Lactic Acid Uric Acid Calcium 5.6 L* Phosphorus 6.30 H Iron TIBC Erythropoietin Ferritin Total Bilirubin Direct Bilirubin AST ALT Alkaline Phosphatase Lactate Dehydrogenase C-Reactive Protein Serum Total Protein Total Protein Albumin Wqkki-4-Xpntfvdkr Abnorm Protein Band 1 PEP Interpretation Crossmatch 10/19/16 10/19/16 10/19/16 09:14 10:01 12:14 WBC RBC Hgb Hct MCV MCHC RDW Plt Count Seg Neuts % (Manual) Lymphocytes % (Manual) Nucleated RBC % Seg Neutrophils # Man Lymphocytes # (Manual) Haptoglobin PT INR Fibrinogen Lupus Anticoagulant LA PTT Baseline POC ABG pH POC ABG pCO2 POC ABG pO2 Sodium Potassium Chloride Carbon Dioxide BUN Creatinine Glucose POC Glucose 173 H 153 H 180 H Lactic Acid Uric Acid Calcium Phosphorus Iron TIBC Erythropoietin Ferritin Total Bilirubin Direct Bilirubin AST ALT Alkaline Phosphatase Lactate Dehydrogenase C-Reactive Protein Serum Total Protein Total Protein Albumin Uramf-7-Tcgdyhfky Abnorm Protein Band 1 PEP Interpretation Crossmatch 10/19/16 10/19/16 10/19/16 14:15 16:38 20:27 WBC RBC Hgb Hct MCV MCHC RDW Plt Count Seg Neuts % (Manual) Lymphocytes % (Manual) Nucleated RBC % Seg Neutrophils # Man Lymphocytes # (Manual) Haptoglobin PT INR Fibrinogen Lupus Anticoagulant LA PTT Baseline POC ABG pH POC ABG pCO2 POC ABG pO2 Sodium Potassium Chloride Carbon Dioxide BUN Creatinine Glucose POC Glucose 194 H 202 H Lactic Acid Uric Acid Calcium Phosphorus Iron TIBC Erythropoietin 148.2 H Ferritin Total Bilirubin Direct Bilirubin AST ALT Alkaline Phosphatase Lactate Dehydrogenase C-Reactive Protein Serum Total Protein Total Protein Albumin Iqzeh-9-Vhnhrhhbc Abnorm Protein Band 1 PEP Interpretation Crossmatch 10/19/16 10/20/16 10/20/16 23:27 04:06 05:00 WBC RBC Hgb Hct MCV MCHC RDW Plt Count Seg Neuts % (Manual) Lymphocytes % (Manual) Nucleated RBC % Seg Neutrophils # Man Lymphocytes # (Manual) Haptoglobin PT INR Fibrinogen Lupus Anticoagulant LA PTT Baseline POC ABG pH POC ABG pCO2 POC ABG pO2 Sodium Potassium Chloride 88.8 L Carbon Dioxide BUN 93 H Creatinine 4.3 H Glucose 204 H POC Glucose 201 H 200 H Lactic Acid Uric Acid Calcium 5.2 L* Phosphorus Iron TIBC Erythropoietin Ferritin Total Bilirubin Direct Bilirubin AST ALT Alkaline Phosphatase Lactate Dehydrogenase C-Reactive Protein Serum Total Protein Total Protein Albumin Kozdm-8-Fwnqwtvyu Abnorm Protein Band 1 PEP Interpretation Crossmatch 10/20/16 10/20/16 10/20/16 05:16 06:00 07:43 WBC 24.8 H RBC 2.52 L Hgb 7.4 L Hct 22.9 L MCV MCHC RDW 19.9 H Plt Count 23 L Seg Neuts % (Manual) 97.0 H Lymphocytes % (Manual) 1.0 L Nucleated RBC % 9.0 H Seg Neutrophils # Man 24.1 H Lymphocytes # (Manual) 0.2 L Haptoglobin PT INR Fibrinogen Lupus Anticoagulant LA PTT Baseline POC ABG pH 7.463 H POC ABG pCO2 POC ABG pO2 157 H Sodium Potassium Chloride Carbon Dioxide BUN Creatinine Glucose POC Glucose 192 H Lactic Acid Uric Acid Calcium Phosphorus Iron TIBC Erythropoietin Ferritin Total Bilirubin Direct Bilirubin AST ALT Alkaline Phosphatase Lactate Dehydrogenase C-Reactive Protein Serum Total Protein Total Protein Albumin Lcney-9-Eklknxgwp Abnorm Protein Band 1 PEP Interpretation Crossmatch 10/20/16 10/20/16 10/20/16 12:11 15:32 21:23 WBC RBC Hgb Hct MCV MCHC RDW Plt Count Seg Neuts % (Manual) Lymphocytes % (Manual) Nucleated RBC % Seg Neutrophils # Man Lymphocytes # (Manual) Haptoglobin PT INR Fibrinogen Lupus Anticoagulant LA PTT Baseline POC ABG pH POC ABG pCO2 POC ABG pO2 Sodium Potassium Chloride Carbon Dioxide BUN Creatinine Glucose POC Glucose 172 H 216 H 271 H Lactic Acid Uric Acid Calcium Phosphorus Iron TIBC Erythropoietin Ferritin Total Bilirubin Direct Bilirubin AST ALT Alkaline Phosphatase Lactate Dehydrogenase C-Reactive Protein Serum Total Protein Total Protein Albumin Rggnj-2-Klvutsstf Abnorm Protein Band 1 PEP Interpretation Crossmatch 10/20/16 10/21/16 10/21/16 23:49 03:53 04:58 WBC RBC Hgb Hct MCV MCHC RDW Plt Count Seg Neuts % (Manual) Lymphocytes % (Manual) Nucleated RBC % Seg Neutrophils # Man Lymphocytes # (Manual) Haptoglobin PT INR Fibrinogen Lupus Anticoagulant LA PTT Baseline POC ABG pH 7.459 H POC ABG pCO2 POC ABG pO2 113 H Sodium 136 L Potassium 2.8 L* D Chloride 91.6 L Carbon Dioxide BUN 62 H Creatinine 2.8 H Glucose 236 H POC Glucose 317 H Lactic Acid Uric Acid Calcium 6.2 L D Phosphorus Iron TIBC Erythropoietin Ferritin Total Bilirubin 2.70 H Direct Bilirubin AST 73 H ALT 57 H Alkaline Phosphatase 158 H Lactate Dehydrogenase C-Reactive Protein Serum Total Protein Total Protein 4.9 L Albumin 2.6 L Ctyxr-6-Aocrxqdyn Abnorm Protein Band 1 PEP Interpretation Crossmatch 10/21/16 10/21/16 10/21/16 05:25 07:11 10:30 WBC 28.1 H RBC 2.36 L Hgb 7.0 L Hct 21.6 L MCV MCHC RDW 20.0 H Plt Count 14 L* Seg Neuts % (Manual) 92.0 H Lymphocytes % (Manual) 0 L Nucleated RBC % 5.0 H Seg Neutrophils # Man 25.9 H Lymphocytes # (Manual) 0.0 L Haptoglobin PT INR Fibrinogen Lupus Anticoagulant LA PTT Baseline POC ABG pH POC ABG pCO2 POC ABG pO2 Sodium Potassium Chloride Carbon Dioxide BUN Creatinine Glucose POC Glucose 237 H 206 H Lactic Acid Uric Acid Calcium Phosphorus Iron TIBC Erythropoietin Ferritin Total Bilirubin Direct Bilirubin AST ALT Alkaline Phosphatase Lactate Dehydrogenase C-Reactive Protein Serum Total Protein Total Protein Albumin Yjfpc-5-Cuobouawn Abnorm Protein Band 1 PEP Interpretation Crossmatch 10/21/16 10/21/16 10/21/16 11:25 12:31 16:33 WBC RBC Hgb Hct MCV MCHC RDW Plt Count Seg Neuts % (Manual) Lymphocytes % (Manual) Nucleated RBC % Seg Neutrophils # Man Lymphocytes # (Manual) Haptoglobin PT 49.1 H INR 5.28 H* Fibrinogen Lupus Anticoagulant LA PTT Baseline POC ABG pH POC ABG pCO2 POC ABG pO2 Sodium Potassium Chloride Carbon Dioxide BUN Creatinine Glucose POC Glucose 145 H 151 H Lactic Acid Uric Acid Calcium Phosphorus Iron TIBC Erythropoietin Ferritin Total Bilirubin Direct Bilirubin AST ALT Alkaline Phosphatase Lactate Dehydrogenase C-Reactive Protein Serum Total Protein Total Protein Albumin Lkonb-3-Wwclwwpfq Abnorm Protein Band 1 PEP Interpretation Crossmatch 10/21/16 10/22/16 10/22/16 19:53 00:00 05:23 WBC RBC Hgb Hct MCV MCHC RDW Plt Count Seg Neuts % (Manual) Lymphocytes % (Manual) Nucleated RBC % Seg Neutrophils # Man Lymphocytes # (Manual) Haptoglobin PT INR Fibrinogen Lupus Anticoagulant LA PTT Baseline POC ABG pH POC ABG pCO2 POC ABG pO2 Sodium Potassium Chloride Carbon Dioxide BUN Creatinine Glucose POC Glucose 170 H 168 H 131 H Lactic Acid Uric Acid Calcium Phosphorus Iron TIBC Erythropoietin Ferritin Total Bilirubin Direct Bilirubin AST ALT Alkaline Phosphatase Lactate Dehydrogenase C-Reactive Protein Serum Total Protein Total Protein Albumin Wlhfs-1-Fytoitcru Abnorm Protein Band 1 PEP Interpretation Crossmatch 10/22/16 10/22/16 10/22/16 05:25 05:35 13:03 WBC RBC Hgb Hct MCV MCHC RDW Plt Count Seg Neuts % (Manual) Lymphocytes % (Manual) Nucleated RBC % Seg Neutrophils # Man Lymphocytes # (Manual) Haptoglobin PT INR Fibrinogen Lupus Anticoagulant LA PTT Baseline POC ABG pH 7.462 H POC ABG pCO2 POC ABG pO2 Sodium 135 L Potassium 3.0 L Chloride 88.5 L Carbon Dioxide BUN 84 H Creatinine 3.4 H Glucose 124 H POC Glucose 164 H Lactic Acid Uric Acid Calcium 5.9 L* Phosphorus Iron TIBC Erythropoietin Ferritin Total Bilirubin 2.00 H Direct Bilirubin AST 85 H ALT Alkaline Phosphatase 199 H Lactate Dehydrogenase C-Reactive Protein Serum Total Protein Total Protein 5.0 L Albumin 2.5 L Nwkcu-0-Lmqfisxep Abnorm Protein Band 1 PEP Interpretation Crossmatch 10/22/16 10/22/16 10/23/16 17:14 23:16 04:47 WBC RBC Hgb Hct MCV MCHC RDW Plt Count Seg Neuts % (Manual) Lymphocytes % (Manual) Nucleated RBC % Seg Neutrophils # Man Lymphocytes # (Manual) Haptoglobin PT INR Fibrinogen Lupus Anticoagulant LA PTT Baseline POC ABG pH 7.476 H POC ABG pCO2 POC ABG pO2 108 H Sodium Potassium Chloride Carbon Dioxide BUN Creatinine Glucose POC Glucose 188 H 167 H Lactic Acid Uric Acid Calcium Phosphorus Iron TIBC Erythropoietin Ferritin Total Bilirubin Direct Bilirubin AST ALT Alkaline Phosphatase Lactate Dehydrogenase C-Reactive Protein Serum Total Protein Total Protein Albumin Aygyy-1-Hihdytjyc Abnorm Protein Band 1 PEP Interpretation Crossmatch 10/23/16 10/23/16 10/23/16 05:49 07:00 07:12 WBC 24.2 H RBC 2.27 L Hgb 7.0 L Hct 21.1 L MCV MCHC RDW 19.7 H Plt Count 35 L D Seg Neuts % (Manual) Lymphocytes % (Manual) Nucleated RBC % Seg Neutrophils # Man Lymphocytes # (Manual) Haptoglobin PT INR Fibrinogen Lupus Anticoagulant LA PTT Baseline POC ABG pH POC ABG pCO2 POC ABG pO2 Sodium Potassium 3.5 L Chloride 95.7 L Carbon Dioxide BUN 55 H Creatinine 2.7 H Glucose 103 H POC Glucose 106 H Lactic Acid Uric Acid Calcium 7.1 L D Phosphorus Iron TIBC Erythropoietin Ferritin Total Bilirubin Direct Bilirubin AST ALT Alkaline Phosphatase Lactate Dehydrogenase C-Reactive Protein Serum Total Protein Total Protein Albumin Kcwsb-4-Tuqbmahqd Abnorm Protein Band 1 PEP Interpretation Crossmatch 10/24/16 10/24/16 10/24/16 00:12 05:16 07:00 WBC 17.9 H RBC 2.12 L Hgb 6.5 L Hct 19.9 L* MCV MCHC RDW 19.3 H Plt Count 44 L Seg Neuts % (Manual) Lymphocytes % (Manual) Nucleated RBC % Seg Neutrophils # Man Lymphocytes # (Manual) Haptoglobin PT INR Fibrinogen Lupus Anticoagulant LA PTT Baseline POC ABG pH POC ABG pCO2 POC ABG pO2 Sodium Potassium Chloride Carbon Dioxide BUN Creatinine Glucose POC Glucose 116 H 135 H Lactic Acid Uric Acid Calcium Phosphorus Iron TIBC Erythropoietin Ferritin Total Bilirubin Direct Bilirubin AST ALT Alkaline Phosphatase Lactate Dehydrogenase C-Reactive Protein Serum Total Protein Total Protein Albumin Bdghj-6-Epcubblqc Abnorm Protein Band 1 PEP Interpretation Crossmatch 10/24/16 10/24/16 10/24/16 07:00 11:45 12:12 WBC RBC Hgb Hct MCV MCHC RDW Plt Count Seg Neuts % (Manual) Lymphocytes % (Manual) Nucleated RBC % Seg Neutrophils # Man Lymphocytes # (Manual) Haptoglobin PT INR Fibrinogen Lupus Anticoagulant LA PTT Baseline POC ABG pH POC ABG pCO2 POC ABG pO2 Sodium Potassium Chloride 92.9 L Carbon Dioxide BUN 74 H Creatinine 3.3 H Glucose 136 H POC Glucose 177 H Lactic Acid Uric Acid Calcium 6.6 L Phosphorus Iron TIBC Erythropoietin Ferritin Total Bilirubin 2.10 H Direct Bilirubin AST 68 H ALT Alkaline Phosphatase 224 H Lactate Dehydrogenase C-Reactive Protein Serum Total Protein Total Protein 4.8 L Albumin 2.3 L Vhrhl-8-Wxfbpnhsl Abnorm Protein Band 1 PEP Interpretation Crossmatch See Detail 10/24/16 10/24/16 10/24/16 16:30 16:30 17:28 WBC RBC Hgb Hct MCV MCHC RDW Plt Count Seg Neuts % (Manual) Lymphocytes % (Manual) Nucleated RBC % Seg Neutrophils # Man Lymphocytes # (Manual) Haptoglobin PT INR Fibrinogen Lupus Anticoagulant LA PTT Baseline POC ABG pH POC ABG pCO2 POC ABG pO2 Sodium Potassium Chloride Carbon Dioxide BUN Creatinine Glucose POC Glucose 128 H Lactic Acid 3.00 H* Uric Acid Calcium Phosphorus Iron TIBC Erythropoietin Ferritin Total Bilirubin Direct Bilirubin AST ALT Alkaline Phosphatase Lactate Dehydrogenase C-Reactive Protein 7.40 H Serum Total Protein Total Protein Albumin Efmbp-2-Khdbepaiq Abnorm Protein Band 1 PEP Interpretation Crossmatch 10/24/16 10/24/16 10/25/16 18:40 23:32 05:00 WBC 17.5 H RBC 2.99 L Hgb 9.1 L Hct 26.9 L D MCV MCHC RDW 17.7 H Plt Count 53 L Seg Neuts % (Manual) Lymphocytes % (Manual) Nucleated RBC % Seg Neutrophils # Man Lymphocytes # (Manual) Haptoglobin PT INR Fibrinogen Lupus Anticoagulant LA PTT Baseline POC ABG pH POC ABG pCO2 POC ABG pO2 Sodium Potassium Chloride Carbon Dioxide BUN Creatinine Glucose POC Glucose 140 H Lactic Acid 3.10 H* Uric Acid Calcium Phosphorus Iron TIBC Erythropoietin Ferritin Total Bilirubin Direct Bilirubin AST ALT Alkaline Phosphatase Lactate Dehydrogenase C-Reactive Protein Serum Total Protein Total Protein Albumin Jevue-1-Rtoisqdvu Abnorm Protein Band 1 PEP Interpretation Crossmatch 10/25/16 10/25/16 10/25/16 05:00 05:22 11:58 WBC RBC Hgb Hct MCV MCHC RDW Plt Count Seg Neuts % (Manual) Lymphocytes % (Manual) Nucleated RBC % Seg Neutrophils # Man Lymphocytes # (Manual) Haptoglobin PT INR Fibrinogen Lupus Anticoagulant LA PTT Baseline POC ABG pH POC ABG pCO2 POC ABG pO2 Sodium Potassium Chloride 91.6 L Carbon Dioxide BUN 89 H Creatinine 3.9 H Glucose 150 H POC Glucose 164 H 189 H Lactic Acid Uric Acid Calcium 6.9 L Phosphorus Iron TIBC Erythropoietin Ferritin Total Bilirubin Direct Bilirubin AST ALT Alkaline Phosphatase Lactate Dehydrogenase C-Reactive Protein Serum Total Protein Total Protein Albumin Zcwzr-8-Iubtlgupa Abnorm Protein Band 1 PEP Interpretation Crossmatch 10/25/16 10/25/16 10/26/16 17:56 23:12 04:00 WBC RBC Hgb Hct MCV MCHC RDW Plt Count Seg Neuts % (Manual) Lymphocytes % (Manual) Nucleated RBC % Seg Neutrophils # Man Lymphocytes # (Manual) Haptoglobin PT INR Fibrinogen Lupus Anticoagulant LA PTT Baseline POC ABG pH POC ABG pCO2 POC ABG pO2 Sodium 135 L Potassium Chloride 90.7 L Carbon Dioxide BUN 64 H Creatinine 2.9 H Glucose 132 H POC Glucose 156 H 133 H Lactic Acid Uric Acid Calcium 7.3 L Phosphorus Iron TIBC Erythropoietin Ferritin Total Bilirubin Direct Bilirubin AST ALT Alkaline Phosphatase Lactate Dehydrogenase C-Reactive Protein Serum Total Protein Total Protein Albumin Jvnty-5-Agqgzkuoy Abnorm Protein Band 1 PEP Interpretation Crossmatch 10/26/16 10/26/16 10/26/16 05:14 06:15 11:51 WBC 18.6 H RBC 3.15 L Hgb 9.6 L Hct 29.0 L MCV MCHC RDW 17.8 H Plt Count 71 L Seg Neuts % (Manual) 85.0 H Lymphocytes % (Manual) 1.0 L Nucleated RBC % Seg Neutrophils # Man 15.8 H Lymphocytes # (Manual) 0.2 L Haptoglobin PT INR Fibrinogen Lupus Anticoagulant LA PTT Baseline POC ABG pH POC ABG pCO2 POC ABG pO2 Sodium Potassium Chloride Carbon Dioxide BUN Creatinine Glucose POC Glucose 130 H 139 H Lactic Acid Uric Acid Calcium Phosphorus Iron TIBC Erythropoietin Ferritin Total Bilirubin Direct Bilirubin AST ALT Alkaline Phosphatase Lactate Dehydrogenase C-Reactive Protein Serum Total Protein Total Protein Albumin Vrzds-5-Mofpnlxnd Abnorm Protein Band 1 PEP Interpretation Crossmatch 10/26/16 10/26/16 10/27/16 17:25 23:35 04:10 WBC 16.8 H RBC 3.38 L Hgb 10.1 L Hct 31.0 L MCV MCHC RDW 18.0 H Plt Count 77 L Seg Neuts % (Manual) 92.0 H Lymphocytes % (Manual) 1.0 L Nucleated RBC % 1.0 H Seg Neutrophils # Man 15.5 H Lymphocytes # (Manual) 0.2 L Haptoglobin PT INR Fibrinogen Lupus Anticoagulant LA PTT Baseline POC ABG pH POC ABG pCO2 POC ABG pO2 Sodium Potassium Chloride Carbon Dioxide BUN Creatinine Glucose POC Glucose 118 H 145 H Lactic Acid Uric Acid Calcium Phosphorus Iron TIBC Erythropoietin Ferritin Total Bilirubin Direct Bilirubin AST ALT Alkaline Phosphatase Lactate Dehydrogenase C-Reactive Protein Serum Total Protein Total Protein Albumin Rsacv-0-Tmnniaakv Abnorm Protein Band 1 PEP Interpretation Crossmatch 10/27/16 10/27/16 10/27/16 04:10 05:53 08:14 WBC RBC Hgb Hct MCV MCHC RDW Plt Count Seg Neuts % (Manual) Lymphocytes % (Manual) Nucleated RBC % Seg Neutrophils # Man Lymphocytes # (Manual) Haptoglobin PT 23.0 H INR 2.03 H Fibrinogen Lupus Anticoagulant LA PTT Baseline POC ABG pH POC ABG pCO2 POC ABG pO2 Sodium Potassium Chloride 95.5 L Carbon Dioxide BUN 63 H Creatinine 2.8 H Glucose 112 H POC Glucose 127 H Lactic Acid Uric Acid Calcium 7.5 L Phosphorus Iron TIBC Erythropoietin Ferritin Total Bilirubin Direct Bilirubin AST ALT Alkaline Phosphatase Lactate Dehydrogenase C-Reactive Protein Serum Total Protein Total Protein Albumin Jalmg-9-Ntpncgtbk Abnorm Protein Band 1 PEP Interpretation Crossmatch 10/27/16 10/27/16 10/27/16 11:56 17:47 23:55 WBC RBC Hgb Hct MCV MCHC RDW Plt Count Seg Neuts % (Manual) Lymphocytes % (Manual) Nucleated RBC % Seg Neutrophils # Man Lymphocytes # (Manual) Haptoglobin PT INR Fibrinogen Lupus Anticoagulant LA PTT Baseline POC ABG pH POC ABG pCO2 POC ABG pO2 Sodium Potassium Chloride Carbon Dioxide BUN Creatinine Glucose POC Glucose 113 H 117 H 142 H Lactic Acid Uric Acid Calcium Phosphorus Iron TIBC Erythropoietin Ferritin Total Bilirubin Direct Bilirubin AST ALT Alkaline Phosphatase Lactate Dehydrogenase C-Reactive Protein Serum Total Protein Total Protein Albumin Ttmpj-8-Prdugwxmx Abnorm Protein Band 1 PEP Interpretation Crossmatch 10/28/16 10/28/16 10/28/16 05:45 05:45 11:44 WBC 16.6 H RBC 3.18 L Hgb 9.5 L Hct 29.3 L MCV MCHC RDW 17.6 H Plt Count 83 L Seg Neuts % (Manual) 87.0 H Lymphocytes % (Manual) 3.0 L Nucleated RBC % Seg Neutrophils # Man 14.4 H Lymphocytes # (Manual) 0.5 L Haptoglobin PT INR Fibrinogen Lupus Anticoagulant LA PTT Baseline POC ABG pH POC ABG pCO2 POC ABG pO2 Sodium Potassium Chloride 94.6 L Carbon Dioxide 21 L BUN 90 H Creatinine 3.9 H Glucose 152 H POC Glucose 151 H Lactic Acid Uric Acid Calcium 6.9 L Phosphorus Iron TIBC Erythropoietin Ferritin Total Bilirubin Direct Bilirubin AST ALT Alkaline Phosphatase Lactate Dehydrogenase C-Reactive Protein Serum Total Protein Total Protein Albumin Xcgyo-3-Nbjhccfbo Abnorm Protein Band 1 PEP Interpretation Crossmatch 10/28/16 10/28/16 10/29/16 17:31 23:47 04:53 WBC RBC Hgb Hct MCV MCHC RDW Plt Count Seg Neuts % (Manual) Lymphocytes % (Manual) Nucleated RBC % Seg Neutrophils # Man Lymphocytes # (Manual) Haptoglobin PT INR Fibrinogen Lupus Anticoagulant LA PTT Baseline POC ABG pH POC ABG pCO2 POC ABG pO2 Sodium Potassium Chloride Carbon Dioxide BUN Creatinine Glucose POC Glucose 184 H 124 H 153 H Lactic Acid Uric Acid Calcium Phosphorus Iron TIBC Erythropoietin Ferritin Total Bilirubin Direct Bilirubin AST ALT Alkaline Phosphatase Lactate Dehydrogenase C-Reactive Protein Serum Total Protein Total Protein Albumin Okmkw-7-Narikhaeb Abnorm Protein Band 1 PEP Interpretation Crossmatch 10/29/16 10/29/16 10/29/16 06:15 06:15 10:58 WBC 14.1 H RBC 3.15 L Hgb 9.6 L Hct 29.1 L MCV MCHC RDW 17.9 H Plt Count 73 L Seg Neuts % (Manual) 93.0 H Lymphocytes % (Manual) 4.0 L Nucleated RBC % Seg Neutrophils # Man 13.1 H Lymphocytes # (Manual) 0.6 L Haptoglobin PT INR Fibrinogen Lupus Anticoagulant LA PTT Baseline POC ABG pH POC ABG pCO2 POC ABG pO2 Sodium Potassium Chloride Carbon Dioxide BUN 58 H Creatinine 2.7 H Glucose 146 H POC Glucose 134 H Lactic Acid Uric Acid Calcium 7.4 L Phosphorus 5.00 H Iron TIBC Erythropoietin Ferritin Total Bilirubin Direct Bilirubin AST ALT Alkaline Phosphatase Lactate Dehydrogenase C-Reactive Protein Serum Total Protein Total Protein Albumin Pqujj-1-Nrqlmlmmq Abnorm Protein Band 1 PEP Interpretation Crossmatch 10/29/16 10/29/16 10/30/16 17:06 23:28 05:16 WBC RBC Hgb Hct MCV MCHC RDW Plt Count Seg Neuts % (Manual) Lymphocytes % (Manual) Nucleated RBC % Seg Neutrophils # Man Lymphocytes # (Manual) Haptoglobin PT INR Fibrinogen Lupus Anticoagulant LA PTT Baseline POC ABG pH POC ABG pCO2 POC ABG pO2 Sodium Potassium Chloride Carbon Dioxide BUN Creatinine Glucose POC Glucose 158 H 133 H 147 H Lactic Acid Uric Acid Calcium Phosphorus Iron TIBC Erythropoietin Ferritin Total Bilirubin Direct Bilirubin AST ALT Alkaline Phosphatase Lactate Dehydrogenase C-Reactive Protein Serum Total Protein Total Protein Albumin Kypkf-3-Naccsimko Abnorm Protein Band 1 PEP Interpretation Crossmatch 10/30/16 10/30/16 10/30/16 06:35 06:35 12:08 WBC 13.0 H RBC 3.08 L Hgb 9.3 L Hct 28.7 L MCV MCHC RDW 18.4 H Plt Count 73 L Seg Neuts % (Manual) Lymphocytes % (Manual) Nucleated RBC % Seg Neutrophils # Man Lymphocytes # (Manual) Haptoglobin PT INR Fibrinogen Lupus Anticoagulant LA PTT Baseline POC ABG pH POC ABG pCO2 POC ABG pO2 Sodium Potassium Chloride Carbon Dioxide BUN 86 H Creatinine 3.5 H Glucose 132 H POC Glucose 134 H Lactic Acid Uric Acid Calcium 7.1 L Phosphorus 5.90 H Iron TIBC Erythropoietin Ferritin Total Bilirubin Direct Bilirubin AST ALT Alkaline Phosphatase Lactate Dehydrogenase C-Reactive Protein Serum Total Protein Total Protein Albumin Sdnyg-5-Jbmzebpul Abnorm Protein Band 1 PEP Interpretation Crossmatch 10/30/16 18:02 WBC RBC Hgb Hct MCV MCHC RDW Plt Count Seg Neuts % (Manual) Lymphocytes % (Manual) Nucleated RBC % Seg Neutrophils # Man Lymphocytes # (Manual) Haptoglobin PT INR Fibrinogen Lupus Anticoagulant LA PTT Baseline POC ABG pH POC ABG pCO2 POC ABG pO2 Sodium Potassium Chloride Carbon Dioxide BUN Creatinine Glucose POC Glucose 142 H Lactic Acid Uric Acid Calcium Phosphorus Iron TIBC Erythropoietin Ferritin Total Bilirubin Direct Bilirubin AST ALT Alkaline Phosphatase Lactate Dehydrogenase C-Reactive Protein Serum Total Protein Total Protein Albumin Jozhf-7-Iyfqwmugc Abnorm Protein Band 1 PEP Interpretation Crossmatch Chest x-ray: report reviewed (ET tube in place. Left pleural effusion.), image reviewed Allied health notes reviewed: RT
[2016-10-31] MEDS: NOVOLOG SUB-Q SCH ×4 (00:57→18:30)
[2016-10-31] MEDS: FLAGYL FEEDTUBE SCH ×3 (04:20→20:34)
[2016-10-31 06:36] LABS: Hematocrit 26.4 % (35.5-45.6); Hemoglobin 8.6 gm/dl (11.8-15.2); Mean Corpuscular HGB Conc 32 % (32-34); Mean Corpuscular Hemoglobin 30 pg (28-32); Mean Corpuscular Volume 94 fl (84-94); Red Blood Count 2.82 M/mm3 (3.65-5.03); Red Cell Distribution Width 17.8 % (13.2-15.2); White Blood Count 11.9 K/mm3 (4.5-11.0)
[2016-10-31 06:37] LABS: Platelet Count 56 K/mm3 (140-440)
--- NOTE | 2016-10-31 06:45 | Progress Note ---
Assessment and Plan - Patient Problems (1) Sepsis Current Visit: Yes Status: Acute Qualifiers: Sepsis type: Streptococcus group B Qualified Code(s): A40.1 - Sepsis due to streptococcus, group B Plan to address problem: 1. Patient has completed a sufficient course of therapy for bacteremia. Nonetheless, continuing current antimicrobials with a duration TBD. 2. [place] to change or remove indwelling lines prior to stopping Vancomycin, as they were placed while the patient was bacteremic. However, presently not feasible to do so given thrombocytopenia, etc. Subjective Date of service: 10/31/16 Principal diagnosis: Sepsis Syndrome; MAHA; RAJESH; CHF; TTP Interval history: Remains in ICU. Afebrile. Objective - Exam Narrative Exam: intubated, FiO2 25% - Constitutional Vitals: Vital Signs Temp Pulse Resp BP Pulse Ox 99.0 F 90 27 H 107/75 97 10/31/16 04:00 10/31/16 06:00 10/31/16 06:00 10/31/16 06:00 10/31/16 06:00 Temperature -Last 24 Hours Temperature 99.0 F Temperature 99.0 F Temperature 99.4 F Temperature 98.9 F Temperature 98.8 F Temperature 99.0 F - EENT ENT: other (ET and Dobhoff tubes in place) - Respiratory Respiratory: bilateral: rhonchi - Cardiovascular Rhythm: regular Heart Sounds: Present: S1 & S2 Extremity abnormal: edema (trace) - Gastrointestinal General gastrointestinal: Present: soft, non-distended, hypoactive bowel sounds Rectal Exam: other (rectal tube with liquid brown stool) - Integumentary Integumentary: rash (fading, patchy petechial rash) - Labs CBC & Chem 7: 10/31/16 06:21 10/31/16 06:21 Labs: Abnormal lab results 10/30/16 10/30/16 10/30/16 Range/Units 06:35 06:35 12:08 WBC 13.0 H (4.5-11.0) K/mm3 RBC 3.08 L (3.65-5.03) M/mm3 Hgb 9.3 L (11.8-15.2) gm/dl Hct 28.7 L (35.5-45.6) % RDW 18.4 H (13.2-15.2) % Plt Count 73 L (140-440) K/mm3 BUN 86 H (9-20) mg/dL Creatinine 3.5 H (0.8-1.5) mg/dL Glucose 132 H (75-100) mg/dL POC Glucose 134 H (70-105) Calcium 7.1 L (8.4-10.2) mg/dL Phosphorus 5.90 H (2.5-4.5) mg/dL 10/30/16 10/30/16 10/31/16 Range/Units 18:02 23:31 05:21 WBC (4.5-11.0) K/mm3 RBC (3.65-5.03) M/mm3 Hgb (11.8-15.2) gm/dl Hct (35.5-45.6) % RDW (13.2-15.2) % Plt Count (140-440) K/mm3 BUN (9-20) mg/dL Creatinine (0.8-1.5) mg/dL Glucose (75-100) mg/dL POC Glucose 142 H 152 H 152 H (70-105) Calcium (8.4-10.2) mg/dL Phosphorus (2.5-4.5) mg/dL 10/31/16 Range/Units 06:21 WBC 11.9 H (4.5-11.0) K/mm3 RBC 2.82 L (3.65-5.03) M/mm3 Hgb 8.6 L (11.8-15.2) gm/dl Hct 26.4 L (35.5-45.6) % RDW 17.8 H (13.2-15.2) % Plt Count 56 L (140-440) K/mm3 BUN (9-20) mg/dL Creatinine (0.8-1.5) mg/dL Glucose (75-100) mg/dL POC Glucose (70-105) Calcium (8.4-10.2) mg/dL Phosphorus (2.5-4.5) mg/dL Microbiology 10/26/16 17:30 Stool C. difficile DNA Amplification - Final 10/16/16 21:15 Peripheral/Venous Blood Culture - Final NO GROWTH AFTER 5 DAYS 10/16/16 20:30 Peripheral/Venous Blood Culture - Final NO GROWTH AFTER 5 DAYS 10/16/16 21:00 Tracheal Aspirate Sputum Culture - Final Sara Albicans 10/14/16 16:15 Peripheral/Venous Blood Culture - Preliminary Beta Hemolytic Strep Group B 10/14/16 15:33 Peripheral/Venous Blood Culture - Preliminary Beta Hemolytic Strep Group B Active Medications Acetaminophen (Tylenol) 1,000 mg MT Q4H PRN PRN Reason: Pain, Mild (1-3) Last Admin: 10/20/16 15:40 Dose: 1,000 mg Acetaminophen (Tylenol) 650 mg FEEDTUBE Q6H PRN PRN Reason: Pain, Mild (1-3) Last Admin: 10/24/16 10:56 Dose: 650 mg Lipase/Protease/Amylase (Pancreaze Dr 10,500 Unit) 1 each FEEDTUBE PRN PRN PRN Reason: For Clogged Feeding Tube Dextrose (D50w (25gm)) 25 ml IV PRN PRN PRN Reason: Hypoglycemia Last Admin: 10/18/16 07:20 Dose: 25 ml Diphenhydramine HCl (Benadryl) 50 mg IV Q6H PRN PRN Reason: Itching Last Admin: 10/24/16 10:57 Dose: 50 mg Famotidine (Pepcid) 20 mg PO Q24H EDWINA Last Admin: 10/30/16 09:52 Dose: 20 mg Haloperidol Lactate (Haldol) 5 mg IM Q6H PRN PRN Reason: Agitation Last Admin: 10/14/16 21:11 Dose: 5 mg Heparin Sodium (Porcine) (Heparin) 10,000 unit IV ROD PRN PRN Reason: for plasmapheresis- vascath Last Admin: 10/25/16 15:40 Dose: 10,000 unit Hydrocortisone Sodium Succinate (Solu-Cortef) 60 mg IV Q8HR EDWINA Last Admin: 10/31/16 06:10 Dose: 60 mg Hydrophilic Ointment (Vaseline Lip Therapy) 1 applic TP Q2H PRN PRN Reason: Dry Lips Sodium Chloride (Nacl 0.9%) 100 mls @ 999 mls/hr IV ROD PRN PRN Reason: Hypotension Propofol (Diprivan 10 Mg/Ml) 1,000 mg in 100 mls @ 1.827 mls/hr IV TITR EDWINA; 5 MCG/KG/MIN PRN Reason: Protocol Last Titration: 10/20/16 10:12 Dose: 0 mcg/kg/min, 0 mls/hr Fentanyl Citrate (Fentanyl Drip Premix) 2,000 mcg in 100 mls @ 3.045 mls/hr IV TITR EDWINA; 1 MCG/KG/HR PRN Reason: Protocol Insulin Aspart (Novolog) 0 units SUB-Q Q6HR [facility] PRN Reason: Protocol Last Admin: 10/31/16 06:13 Dose: 3 units Labetalol HCl (Normodyne) 20 mg IV Q6H PRN PRN Reason: Hypertension Last Admin: 10/25/16 05:33 Dose: 20 mg Metoprolol Tartrate (Lopressor) 25 mg PO BID [facility] Last Admin: 10/30/16 21:24 Dose: 25 mg Metronidazole (Flagyl) 500 mg FEEDTUBE Q8H [facility] Last Admin: 10/31/16 04:20 Dose: 500 mg Multi-Ingred Cream/Lotion/Oil/Oint (Artificial Tears Ophth Oint) 1 applic OU Q4H PRN PRN Reason: Dry Eye(s) Ondansetron HCl (Zofran) 4 mg IV Q8H PRN PRN Reason: Nausea And Vomiting Simple Syrup (Simple Syrup) 15 ml FEEDTUBE PRN PRN PRN Reason: Hypoglycemia Simple Syrup (Simple Syrup) 30 ml FEEDTUBE PRN PRN PRN Reason: Hypoglycemia Sodium Bicarbonate (Sodium Bicarbonate) 325 mg FEEDTUBE PRN PRN PRN Reason: For Clogged Feeding Tube Sodium Chloride (Sodium Chloride Flush Syringe 10 Ml) 10 ml IV PRN PRN PRN Reason: LINE FLUSH Last Admin: 10/17/16 20:45 Dose: 10 ml Vancomycin HCl (Vancomycin Pharmacy To Dose) 1 each IV PKCONSULT [facility] PRN Reason: Protocol
[2016-10-31 06:52] LABS: BUN/Creatinine Ratio 25.47; Calcium 7.2 mg/dL (8.4-10.2); Chloride 100.2 mmol/L (98-107); Phosphorous 6.5 mg/dL (2.5-4.5); Potassium 4.4 mmol/L (3.6-5.0)
[2016-10-31 08:59] LABS: Blastocytes % (Manual) 0 %
[2016-10-31 09:00] LABS: Anisocytosis 1+; Basophils % (Manual) 0 % (0.0-1.8); Eosinophils % (Manual) 0 % (0.0-4.3); Poikilocytosis Few
[2016-10-31 09:01] LABS: Diff Status Complete; Large Platelets Few; Platelet Estimate Appe
[2016-10-31] MEDS: LOPRESSOR PO SCH ×2 (09:26→21:55)
[2016-10-31] MEDS: PEPCID PO SCH (09:29)
--- NOTE | 2016-10-31 09:44 | Progress Note ---
Assessment and Plan Assessment and plan: 61-year-old -[place] male with no significant past medical history presented to the emergency department complaining of bilateral leg swelling that worsened for the last 4 days. The swelling is progressed gradually. Patient denied shortness of breath, orthopenia, PND, palpitations or dizziness. Patient denied bleeding from any sites of his body. Patient has never seen a physician for the last 5 years. Patient checked [facility] at [facility] was usually in the normal limit. Patient has been taking Aleve since Monday for leg swelling. Patient denied any chest pain. * Acute metabolic encephalopathy * AFIB WITH RVR * beta hemolitic strep BACTERIMIA * Acute Respiratory failure with hypoxia >96 HRS ON MECHANICAL VENTILATION * Possible hemorrhagic infarct/or hemorrhagic conversion of bland infarct * Pancytopenia [leukopenia, severe anemia, Worsening thrombocytopenia] * End-stage renal disease * secondary coagulopathy- will reverse for trach and peg * Lactic acidosis * Probable TTP, HUS, Amyloidosis * persistent hypoglycemia * Acute systolic congestive heart failure EF around 30% * SEVERE SEPSIS plan: * critically ill * Dylon pending, * Nephrology following, interval dialysis * Intubated and on full ventilatory support * completed abx for bacterimia. per ID would like to replace lines prior to stopping VANCOMYCIN, but patient is still with thrombocytopenia, making it difficult to do. Will continue to monitor. * Continue PLASMAPHERSIS, * Transfuse as needed * ON HD also. 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 * Nebulizer treatment * ID input noted, CDiff negative. Continue flagyl * Neurology input noted * DVT/GI prophy * plan of care discussed in detail with spouse * Patient is critically sick * 35 mins critical care time spent. NO FAMILY AT BEDSIDE History Interval history: Patient seen and examined this morning remains remains in full ventilatory support. no adverse event noted or reported to me in the past 24 hrs Hospitalist Physical - Physical exam Narrative exam: VITAL SIGNS: Reviewed. GENERAL: sedated and intubated HEAD: No signs of head trauma. EYES: Pupils are equal. EARS: Hearing grossly intact. MOUTH: ETT NECK: No adenopathy, no JVD. CHEST: Chest with diminished, breath sounds bilaterally. CRACKLES, INCREASED WORK OF BREATHING CARDIAC: Irregularly irregular rate and rythm. S1 and S2, without murmurs, gallops, or rubs. VASCULAR: EDEMA UPPER EXT AND LOWER +3. Peripheral pulses normal and equal in all extremities. ABDOMEN: Soft, without detectable tenderness. No sign of distention. No rebound or guarding, and no masses palpated. Bowel Sounds normal. MUSCULOSKELETAL: Good range of motion of all major joints. Extremities without clubbing, cyanosis. +EDEMA UPPER AND LOWER EXT. NEUROLOGIC EXAM: sedated and intubated SKIN: multiple echymosis and bullea - Constitutional Vitals: Temp Pulse Resp BP Pulse Ox 99.3 F 85 25 H 114/78 98 10/31/16 08:00 10/31/16 09:26 10/31/16 08:00 10/31/16 09:26 10/31/16 08:00 General appearance: Present: severe distress Results - Labs CBC & Chem 7: 10/31/16 06:21 10/31/16 06:21 Labs: Laboratory Last Values WBC 11.9 K/mm3 (4.5-11.0) H 10/31/16 06:21 RBC 2.82 M/mm3 (3.65-5.03) L 10/31/16 06:21 Hgb 8.6 gm/dl (11.8-15.2) L 10/31/16 06:21 Hct 26.4 % (35.5-45.6) L 10/31/16 06:21 MCV 94 fl (84-94) 10/31/16 06:21 MCH 30 pg (28-32) 10/31/16 06:21 MCHC 32 % (32-34) 10/31/16 06:21 RDW 17.8 % (13.2-15.2) H 10/31/16 06:21 Plt Count 56 K/mm3 (140-440) L 10/31/16 06:21 Lymph % (Auto) Pets Salesperson 10/14/16 04:34 [place] % (Auto) Pets Salesperson 10/14/16 04:34 Eos % (Auto) Pets Salesperson 10/14/16 04:34 Baso % (Auto) Pets Salesperson 10/14/16 04:34 Lymph # Pets Salesperson 10/14/16 04:34 [place] # Pets Salesperson 10/14/16 04:34 Eos # Pets Salesperson 10/14/16 04:34 Baso # Pets Salesperson 10/14/16 04:34 Add Manual Diff Complete 10/31/16 06:21 Total Counted 100 10/31/16 06:21 Seg Neutrophils % Pets Salesperson 10/31/16 06:21 Seg Neuts % (Manual) 93.0 % (40.0-70.0) H 10/29/16 06:15 Band Neutrophils % 6.0 % 10/31/16 06:21 Lymphocytes % (Manual) 0 % (13.4-35.0) L 10/31/16 06:21 Reactive Lymphs % (Man) 0 % 10/31/16 06:21 Monocytes % (Manual) 2.0 % (0.0-7.3) 10/31/16 06:21 Eosinophils % (Manual) 0 % (0.0-4.3) 10/31/16 06:21 Basophils % (Manual) 0 % (0.0-1.8) 10/31/16 06:21 Metamyelocytes % 0 % 10/31/16 06:21 Myelocytes % 0 % 10/31/16 06:21 Promyelocytes % 0 % 10/31/16 06:21 Blast Cells % 0 % 10/31/16 06:21 Nucleated RBC % Not Reportable 10/31/16 06:21 Seg Neutrophils # Pets Salesperson 10/14/16 04:34 Seg Neutrophils # Man 10.9 K/mm3 (1.8-7.7) H 10/31/16 06:21 Band Neutrophils # 0.7 K/mm3 10/31/16 06:21 Lymphocytes # (Manual) 0.0 K/mm3 (1.2-5.4) L 10/31/16 06:21 Abs React Lymphs (Man) 0.0 K/mm3 10/31/16 06:21 Monocytes # (Manual) 0.2 K/mm3 (0.0-0.8) 10/31/16 06:21 Eosinophils # (Manual) 0.0 K/mm3 (0.0-0.4) 10/31/16 06:21 Basophils # (Manual) 0.0 K/mm3 (0.0-0.1) 10/31/16 06:21 Metamyelocytes # 0.0 K/mm3 10/31/16 06:21 Myelocytes # 0.0 K/mm3 10/31/16 06:21 Promyelocytes # 0.0 K/mm3 10/31/16 06:21 Blast Cells # 0.0 K/mm3 10/31/16 06:21 WBC Morphology Not Reportable 10/31/16 06:21 Hypersegmented Neuts Not Reportable 10/31/16 06:21 Hyposegmented Neuts Not Reportable 10/31/16 06:21 Hypogranular Neuts Not Reportable 10/31/16 06:21 Smudge Cells Not Reportable 10/31/16 06:21 Toxic Granulation Not Reportable 10/31/16 06:21 Toxic Vacuolation Not Reportable 10/31/16 06:21 Dohle Bodies Not Reportable 10/31/16 06:21 Pelger-Huet Anomaly Not Reportable 10/31/16 06:21 Madhu Rods Not Reportable 10/31/16 06:21 Platelet Estimate Appe 10/31/16 06:21 Clumped Platelets Not Reportable 10/31/16 06:21 Plt Clumps, EDTA Not Reportable 10/31/16 06:21 Large Platelets Few 10/31/16 06:21 Giant Platelets Not Reportable 10/31/16 06:21 Platelet Satelliting Not Reportable 10/31/16 06:21 Plt Morphology Comment Not Reportable 10/31/16 06:21 RBC Morphology Not Reportable 10/31/16 06:21 Dimorphic RBCs Not Reportable 10/31/16 06:21 Polychromasia Not Reportable 10/31/16 06:21 Hypochromasia Not Reportable 10/31/16 06:21 Poikilocytosis Few 10/31/16 06:21 Basophilic Stippling Rare 10/21/16 10:30 Anisocytosis 1+ 10/31/16 06:21 Microcytosis Not Reportable 10/31/16 06:21 Macrocytosis Not Reportable 10/31/16 06:21 Spherocytes Not Reportable 10/31/16 06:21 Pappenheimer Bodies Not Reportable 10/31/16 06:21 Sickle Cells Not Reportable 10/31/16 06:21 Target Cells Not Reportable 10/31/16 06:21 Tear Drop Cells Not Reportable 10/31/16 06:21 Ovalocytes Not Reportable 10/31/16 06:21 Stomatocytes Few 10/28/16 05:45 Helmet Cells Not Reportable 10/31/16 06:21 [place] Bodies Not Reportable 10/31/16 06:21 [place] Rings Not Reportable 10/31/16 06:21 [place]rina Cells Not Reportable 10/31/16 06:21 Bite Cells Not Reportable 10/31/16 06:21 Crenated Cell Not Reportable 10/31/16 06:21 Elliptocytes Not Reportable 10/31/16 06:21 Acanthocytes (Spur) Not Reportable 10/31/16 06:21 Rouleaux Not Reportable 10/31/16 06:21 Hemoglobin C Crystals Not Reportable 10/31/16 06:21 Schistocytes Not Reportable 10/31/16 06:21 Malaria parasites Not Reportable 10/31/16 06:21 ESR 77 mm/Hr (0-20) 10/14/16 04:34 Pal Bodies Not Reportable 10/31/16 06:21 Haptoglobin <15 mg/dL (43-212) L 10/15/16 12:00 Hem Pathologist Commnt No 10/31/16 06:21 PT 23.0 Sec. (12.2-14.9) H 10/27/16 08:14 INR 2.03 (0.87-1.13) H 10/27/16 08:14 Fibrinogen 557 mg/dl (211-480) H 10/14/16 09:58 Lupus Anticoagulant see below H 10/14/16 03:00 LA PTT Baseline 55 sec (<=40) H 10/14/16 03:00 dRVVT Confirm Interp Negative (Negative) 10/14/16 03:00 POC ABG pH 7.410 (7.35-7.45) 10/28/16 12:51 POC ABG pCO2 37.8 (35-45) 10/28/16 12:51 POC ABG pO2 93 (80-105) 10/28/16 12:51 POC ABG HCO3 24.0 10/28/16 12:51 POC ABG Total CO2 25 10/28/16 12:51 POC ABG O2 Sat 97 10/28/16 12:51 POC ABG Base Excess -1 10/28/16 12:51 FiO2 25 % 10/28/16 12:51 Sodium 140 mmol/L (137-145) 10/31/16 06:21 Potassium 4.4 mmol/L (3.6-5.0) 10/31/16 06:21 Chloride 100.2 mmol/L (98-107) 10/31/16 06:21 Carbon Dioxide 21 mmol/L (22-30) L 10/31/16 06:21 Anion Gap 23 mmol/L 10/31/16 06:21 BUN 107 mg/dL (9-20) H 10/31/16 06:21 Creatinine 4.2 mg/dL (0.8-1.5) H 10/31/16 06:21 Estimated GFR 14 ml/min 10/31/16 06:21 BUN/Creatinine Ratio 25.47 % 10/31/16 06:21 Glucose 137 mg/dL (75-100) H 10/31/16 06:21 POC Glucose 152 (70-105) H 10/31/16 05:21 Lactic Acid 3.10 mmol/L (0.7-2.0) H* 10/24/16 18:40 Uric Acid 8.0 mg/dL (3.5-7.6) H 10/14/16 03:00 Calcium 7.2 mg/dL (8.4-10.2) L 10/31/16 06:21 Phosphorus 6.50 mg/dL (2.5-4.5) H 10/31/16 06:21 Iron 146 ug/dL (49-181) 10/15/16 05:35 TIBC 166 mcg/dL (250-450) L 10/15/16 05:35 Erythropoietin 148.2 mIU/mL (2.6-18.5) H 10/19/16 14:15 Ferritin 9562.0 ng/mL (13.0-400.0) H 10/15/16 05:35 Total Bilirubin 2.10 mg/dL (0.1-1.2) H 10/24/16 07:00 Direct Bilirubin 1.1 mg/dL (0-0.2) H 10/14/16 09:58 Indirect Bilirubin 0.2 mg/dL 10/14/16 09:58 AST 68 units/L (5-40) H 10/24/16 07:00 ALT 46 units/L (7-56) 10/24/16 07:00 Alkaline Phosphatase 224 units/L (35-129) H 10/24/16 07:00 Ammonia 32.0 umol/L (25-60) 10/19/16 14:15 Lactate Dehydrogenase 3871 units/L (91-180) H 10/15/16 05:35 Troponin T 0.079 ng/mL (0.00-0.029) H 10/13/16 10:14 C-Reactive Protein 7.40 mg/dL (0.00-1.30) H 10/24/16 16:30 NT-Pro-B Natriuret Pep > 45520 pg/mL (0-900) H 10/13/16 10:14 Serum Total Protein 5.6 g/dL (6.1-8.1) L 10/13/16 14:50 Total Protein 4.8 g/dL (6.3-8.2) L 10/24/16 07:00 Albumin 2.3 g/dL (3.9-5) L 10/24/16 07:00 Albumin/Globulin Ratio 0.9 % 10/24/16 07:00 Hkkrg-8-Bsyeyptwi 0.5 g/dL (0.2-0.3) H 10/13/16 14:50 Rtktw-3-Qygpbpulw 0.6 g/dL (0.5-0.9) 10/13/16 14:50 Beta Globulins 0.3 g/dL (0.2-0.5) 10/13/16 14:50 Gamma Globulins 1.7 g/dL (0.8-1.7) 10/13/16 14:50 Abnorm Protein Band 1 1.4 g/dL H 10/13/16 14:50 PEP Interpretation see below H 10/13/16 14:50 Triglycerides 119 mg/dL (2-149) 10/13/16 10:14 Cholesterol 71 mg/dL (50-199) 10/13/16 10:14 LDL Cholesterol Direct 41 mg/dL (50-130) L 10/13/16 10:14 HDL Cholesterol 7 mg/dL (40-59) L 10/13/16 10:14 Cholesterol/HDL Ratio 10.14 % 10/13/16 10:14 Lipase 21 units/L (13-60) 10/15/16 05:35 Vitamin B12 893.9 pg/mL (211-911) 10/14/16 03:00 TSH 0.526 mlU/mL (0.270-4.200) 10/19/16 14:15 Random Vancomycin 21.3 ug/mL (0-40.0) 10/29/16 12:00 IgG 1040 mg/dL (694-1618) 10/19/16 14:15 IgA 149 mg/dL (81-463) 10/19/16 14:15 IgM 53 mg/dL (48-271) 10/19/16 14:15 XU Screen Negative (Negative) 10/13/16 14:50 Proteinase 3 (PR3) Ab <1.0 AI (<1.0) 10/13/16 14:50 Myeloperoxidase Ab <1.0 AI (<1.0) 10/13/16 14:50 Glomerular Base Mem IgG <1.0 AI (<1.0) 10/13/16 14:50 Complement C3 101 mg/dL (90-180) 10/13/16 14:50 Complement C4 16 mg/dL (16-47) 10/13/16 14:50 Hep Bs Antigen Non-reactive (Negative) 10/13/16 14:50 Hepatitis C Antibody Non-reactive (NonReactive) 10/13/16 14:50 HIV 1&2 Antibody Rapid Non react (Non React) 10/13/16 14:50 HIV P24 Antigen Non react (Non React) 10/13/16 14:50 Schistocytes Smear None seen 10/15/16 12:00 Flow Intrp 16+ Markers Scanned into [facility] rec 10/14/16 11:30 Flow Cytometry Interp Scanned into [facility] rec 10/14/16 11:30 Blood Type O POSITIVE 10/24/16 11:45 Antibody Screen TNR 10/24/16 11:45 MADIHA Antibody Screen Negative 10/24/16 11:45 Direct Antiglob Test Negative 10/14/16 03:00 ELAINE, Poly Interpret Negative 10/14/16 03:00 Crossmatch See Detail 10/24/16 11:45
--- NOTE | 2016-10-31 11:40 | Progress Note ---
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) - continue HD/UF per nephrology recs - follow I's and O's (no urine in do bag) - correct electrolytes prn - avoid nephrotoxins - per nephrology otherwise (3) Metabolic acidosis Current Visit: Yes Status: Acute Plan to address problem: - mixed etiology - Lactic Acidosis component resolved - sepsis may have been driving force for that - RAJESH component - continue HD/UF per nephrology prescription - Anti-infectives per ID recs (4) CHF (congestive heart failure) Current Visit: Yes Status: Acute Qualifiers: Congestive heart failure type: C Congestive heart failure chronicity: C Plan to address problem: - ECHO consistent with possible infiltrating disease - cardiology consulted - EF 30& - s/p volume resuscitation for sepsis - per cardiology otherwise - JONATHAN negative (5) Pancytopenia Current Visit: Yes Status: Acute Plan to address problem: - hematology on case - continuing plasmapheresis - may need bone marrow evaluation - follow platelet count (6) Acute encephalopathy Current Visit: Yes Status: Acute Plan to address problem: - CT brain negative - likely toxic-metabolic encephalopathy - MRI abnormal - neurology evaluation ongoing - following clinically (7) Hypoglycemia Current Visit: Yes Status: Acute Plan to address problem: - improved - suspect sepsis related element - will continue systemic steroids but taper - also continue enteral nutrition - glycemic control via SSI at this point (8) Sepsis syndrome Current Visit: Yes Status: Acute Plan to address problem: - s/p antibiotic course - ID on case - CRP and lactate much improved - JONATHAN negative - following clinically - c-diff assay negative - Anti-infectives per ID recs (9) Discharge planning issues Current Visit: Yes Status: Acute Plan to address problem: - he remains critically ill on life sustaining interventions including MVS and at risk for further deterioration including ...32' CCT Subjective Date of service: 10/31/16 Principal diagnosis: Sepsis Syndrome; MAHA; RAJESH; CHF; TTP Interval history: Seen and examined at bedside; 24 hour events reviewed; nursing and respiratory care staff consulted; no adverse overnight events reported to me; remains on MVS ; no new issues respiratory-yates Objective Vital Signs - 12hr 10/31/16 10/31/16 10/31/16 00:00 00:30 01:00 Temperature 99.0 F Pulse Rate 80 79 76 Pulse Rate [ 78 From Monitor] Pulse Rate [ 78 Left Dorsalis Pedis] Pulse Rate [ 78 Left Radial] Pulse Rate [ 78 Right Dorsalis Pedis] Pulse Rate [ 78 Right Radial] Respiratory 22 22 18 Rate Blood Pressure 98/64 101/69 93/65 O2 Sat by Pulse 99 99 99 Oximetry 10/31/16 10/31/16 10/31/16 01:30 02:00 02:30 Temperature Pulse Rate 77 79 82 Pulse Rate [ From Monitor] Pulse Rate [ Left Dorsalis Pedis] Pulse Rate [ Left Radial] Pulse Rate [ Right Dorsalis Pedis] Pulse Rate [ Right Radial] Respiratory 20 21 24 Rate Blood Pressure 93/65 98/67 98/67 O2 Sat by Pulse 99 99 99 Oximetry 10/31/16 10/31/16 10/31/16 03:00 03:12 03:30 Temperature Pulse Rate 81 80 Pulse Rate [ 75 From Monitor] Pulse Rate [ 75 Left Dorsalis Pedis] Pulse Rate [ 75 Left Radial] Pulse Rate [ 75 Right Dorsalis Pedis] Pulse Rate [ 75 Right Radial] Respiratory 21 22 Rate Blood Pressure 105/73 105/73 O2 Sat by Pulse 98 99 Oximetry 10/31/16 10/31/16 10/31/16 04:00 04:30 05:00 Temperature 99.0 F Pulse Rate 79 81 81 Pulse Rate [ From Monitor] Pulse Rate [ Left Dorsalis Pedis] Pulse Rate [ Left Radial] Pulse Rate [ Right Dorsalis Pedis] Pulse Rate [ Right Radial] Respiratory 20 20 22 Rate Blood Pressure 105/73 105/73 105/74 O2 Sat by Pulse 99 98 98 Oximetry 10/31/16 10/31/16 10/31/16 05:30 06:00 06:30 Temperature Pulse Rate 80 90 79 Pulse Rate [ From Monitor] Pulse Rate [ Left Dorsalis Pedis] Pulse Rate [ Left Radial] Pulse Rate [ Right Dorsalis Pedis] Pulse Rate [ Right Radial] Respiratory 23 27 H 20 Rate Blood Pressure 105/74 107/75 114/78 O2 Sat by Pulse 99 97 98 Oximetry 10/31/16 10/31/16 10/31/16 07:00 07:30 07:32 Temperature Pulse Rate 87 85 86 Pulse Rate [ From Monitor] Pulse Rate [ Left Dorsalis Pedis] Pulse Rate [ Left Radial] Pulse Rate [ Right Dorsalis Pedis] Pulse Rate [ Right Radial] Respiratory 25 H 25 H 25 H Rate Blood Pressure 118/85 118/85 118/85 O2 Sat by Pulse 96 98 98 Oximetry 10/31/16 10/31/16 10/31/16 08:00 08:30 09:00 Temperature 99.3 F Pulse Rate 69 85 86 Pulse Rate [ From Monitor] Pulse Rate [ Left Dorsalis Pedis] Pulse Rate [ Left Radial] Pulse Rate [ Right Dorsalis Pedis] Pulse Rate [ Right Radial] Respiratory 25 H 26 H 23 Rate Blood Pressure 125/86 125/86 114/78 O2 Sat by Pulse 98 97 Oximetry 10/31/16 10/31/16 10/31/16 09:26 09:30 10:00 Temperature Pulse Rate 85 86 76 Pulse Rate [ From Monitor] Pulse Rate [ Left Dorsalis Pedis] Pulse Rate [ Left Radial] Pulse Rate [ Right Dorsalis Pedis] Pulse Rate [ Right Radial] Respiratory 26 H 21 Rate Blood Pressure 114/78 114/78 91/62 O2 Sat by Pulse 97 97 Oximetry 10/31/16 10/31/16 10:30 11:00 Temperature Pulse Rate 79 81 Pulse Rate [ From Monitor] Pulse Rate [ Left Dorsalis Pedis] Pulse Rate [ Left Radial] Pulse Rate [ Right Dorsalis Pedis] Pulse Rate [ Right Radial] Respiratory 24 25 H Rate Blood Pressure 91/62 100/70 O2 Sat by Pulse 98 97 Oximetry Constitutional: no acute distress, lethargic Eyes: non-icteric ENT: oropharynx moist Neck: supple, no lymphadenopathy Effort: normal Ascultation: Bilateral: diminished breath sounds, rales (scant in bases) Cardiovascular: irregular rhythm Gastrointestinal: normoactive bowel sounds, soft, non-tender, non-distended Integumentary: normal Extremities: no cyanosis, pulses normal, no ischemia or petechiae, edema Neurologic: non-focal exam (grossly), pupils equal and round, unable to assess Psychiatric: other (unable to assess) CBC and BMP: 11/02/16 10:00 11/02/16 05:15 ABG, PT/INR, D-dimer: ABG POC ABG pH 7.410 (7.35-7.45) 10/28/16 12:51 POC ABG pCO2 37.8 (35-45) 10/28/16 12:51 POC ABG pO2 93 (80-105) 10/28/16 12:51 POC ABG HCO3 24.0 10/28/16 12:51 POC ABG Total CO2 25 10/28/16 12:51 POC ABG O2 Sat 97 10/28/16 12:51 PT/INR, D-dimer PT 23.0 Sec. (12.2-14.9) H 10/27/16 08:14 INR 2.03 (0.87-1.13) H 10/27/16 08:14 Abnormal lab findings: Abnormal Labs 10/13/16 10/13/16 10/13/16 14:50 21:40 22:05 WBC RBC Hgb Hct MCV MCHC RDW Plt Count Seg Neuts % (Manual) Lymphocytes % (Manual) Nucleated RBC % Seg Neutrophils # Man Lymphocytes # (Manual) Haptoglobin PT INR Fibrinogen Lupus Anticoagulant LA PTT Baseline POC ABG pH POC ABG pCO2 POC ABG pO2 Sodium Potassium Chloride Carbon Dioxide BUN Creatinine Glucose POC Glucose 52 L 43 L Lactic Acid Uric Acid Calcium Phosphorus Iron TIBC Erythropoietin Ferritin Total Bilirubin Direct Bilirubin AST ALT Alkaline Phosphatase Lactate Dehydrogenase C-Reactive Protein Serum Total Protein 5.6 L Total Protein Albumin 2.2 L Ghuwu-4-Sjehzynwb 0.5 H Abnorm Protein Band 1 1.4 H PEP Interpretation see below H Crossmatch 10/13/16 10/14/16 10/14/16 23:18 03:00 03:00 WBC RBC Hgb Hct MCV MCHC RDW Plt Count Seg Neuts % (Manual) Lymphocytes % (Manual) Nucleated RBC % Seg Neutrophils # Man Lymphocytes # (Manual) Haptoglobin PT INR Fibrinogen Lupus Anticoagulant see below H LA PTT Baseline 55 H POC ABG pH POC ABG pCO2 POC ABG pO2 Sodium Potassium Chloride Carbon Dioxide BUN Creatinine Glucose POC Glucose 113 H Lactic Acid Uric Acid Calcium Phosphorus Iron TIBC Erythropoietin Ferritin Total Bilirubin Direct Bilirubin AST ALT Alkaline Phosphatase Lactate Dehydrogenase 406 H C-Reactive Protein Serum Total Protein Total Protein Albumin Lusgr-4-Cplfsntee Abnorm Protein Band 1 PEP Interpretation Crossmatch 10/14/16 10/14/16 10/14/16 03:00 03:00 04:34 WBC 1.3 L* RBC 2.33 L Hgb 7.3 L Hct 21.7 L MCV MCHC RDW 19.8 H Plt Count 99 L Seg Neuts % (Manual) Lymphocytes % (Manual) 3.0 L Nucleated RBC % Seg Neutrophils # Man 0.9 L Lymphocytes # (Manual) 0.0 L Haptoglobin PT INR Fibrinogen Lupus Anticoagulant LA PTT Baseline POC ABG pH POC ABG pCO2 POC ABG pO2 Sodium Potassium Chloride Carbon Dioxide 18 L BUN 73 H Creatinine 9.8 H Glucose 59 L POC Glucose Lactic Acid Uric Acid 8.0 H Calcium 8.2 L Phosphorus 6.60 H Iron 13 L TIBC 160 L Erythropoietin Ferritin Total Bilirubin Direct Bilirubin AST ALT Alkaline Phosphatase Lactate Dehydrogenase C-Reactive Protein Serum Total Protein Total Protein Albumin Guhud-1-Srdmttfyk Abnorm Protein Band 1 PEP Interpretation Crossmatch 10/14/16 10/14/16 10/14/16 05:27 06:29 07:34 WBC RBC Hgb Hct MCV MCHC RDW Plt Count Seg Neuts % (Manual) Lymphocytes % (Manual) Nucleated RBC % Seg Neutrophils # Man Lymphocytes # (Manual) Haptoglobin PT INR Fibrinogen Lupus Anticoagulant LA PTT Baseline POC ABG pH POC ABG pCO2 POC ABG pO2 Sodium Potassium Chloride Carbon Dioxide BUN Creatinine Glucose POC Glucose < 40 L 63 L < 40 L Lactic Acid Uric Acid Calcium Phosphorus Iron TIBC Erythropoietin Ferritin Total Bilirubin Direct Bilirubin AST ALT Alkaline Phosphatase Lactate Dehydrogenase C-Reactive Protein Serum Total Protein Total Protein Albumin Adfny-7-Mpoqzkhzj Abnorm Protein Band 1 PEP Interpretation Crossmatch 10/14/16 10/14/16 10/14/16 09:58 09:58 09:58 WBC RBC Hgb Hct MCV MCHC RDW Plt Count Seg Neuts % (Manual) Lymphocytes % (Manual) Nucleated RBC % Seg Neutrophils # Man Lymphocytes # (Manual) Haptoglobin 218 H PT INR Fibrinogen 557 H Lupus Anticoagulant LA PTT Baseline POC ABG pH POC ABG pCO2 POC ABG pO2 Sodium Potassium Chloride Carbon Dioxide BUN Creatinine Glucose POC Glucose Lactic Acid Uric Acid Calcium Phosphorus Iron TIBC Erythropoietin Ferritin Total Bilirubin 1.30 H Direct Bilirubin 1.1 H AST ALT Alkaline Phosphatase Lactate Dehydrogenase C-Reactive Protein Serum Total Protein Total Protein Albumin Vucvc-8-Bzzfplitd Abnorm Protein Band 1 PEP Interpretation Crossmatch 10/14/16 10/14/16 10/14/16 10:57 11:15 12:52 WBC RBC Hgb Hct MCV MCHC RDW Plt Count Seg Neuts % (Manual) Lymphocytes % (Manual) Nucleated RBC % Seg Neutrophils # Man Lymphocytes # (Manual) Haptoglobin PT INR Fibrinogen Lupus Anticoagulant LA PTT Baseline POC ABG pH POC ABG pCO2 POC ABG pO2 Sodium Potassium Chloride Carbon Dioxide BUN Creatinine Glucose POC Glucose < 40 L < 40 L Lactic Acid 9.60 H* Uric Acid Calcium Phosphorus Iron TIBC Erythropoietin Ferritin Total Bilirubin Direct Bilirubin AST ALT Alkaline Phosphatase Lactate Dehydrogenase C-Reactive Protein Serum Total Protein Total Protein Albumin Qapky-0-Okytenqev Abnorm Protein Band 1 PEP Interpretation Crossmatch 10/14/16 10/14/16 10/14/16 12:52 13:17 14:12 WBC RBC Hgb Hct MCV MCHC RDW Plt Count Seg Neuts % (Manual) Lymphocytes % (Manual) Nucleated RBC % Seg Neutrophils # Man Lymphocytes # (Manual) Haptoglobin PT INR Fibrinogen Lupus Anticoagulant LA PTT Baseline POC ABG pH POC ABG pCO2 POC ABG pO2 Sodium Potassium Chloride Carbon Dioxide BUN Creatinine Glucose POC Glucose < 40 L < 40 L Lactic Acid Uric Acid Calcium Phosphorus Iron TIBC Erythropoietin Ferritin Total Bilirubin Direct Bilirubin AST ALT Alkaline Phosphatase Lactate Dehydrogenase C-Reactive Protein 40.40 H Serum Total Protein Total Protein Albumin Cafra-1-Cgnzkxjnk Abnorm Protein Band 1 PEP Interpretation Crossmatch 10/14/16 10/14/16 10/14/16 15:02 15:33 15:33 WBC RBC Hgb Hct MCV MCHC RDW Plt Count Seg Neuts % (Manual) Lymphocytes % (Manual) Nucleated RBC % Seg Neutrophils # Man Lymphocytes # (Manual) Haptoglobin PT INR Fibrinogen Lupus Anticoagulant LA PTT Baseline POC ABG pH POC ABG pCO2 POC ABG pO2 Sodium Potassium Chloride Carbon Dioxide BUN Creatinine Glucose 19 L* POC Glucose < 40 L Lactic Acid 11.60 H* Uric Acid Calcium Phosphorus Iron TIBC Erythropoietin Ferritin Total Bilirubin Direct Bilirubin AST ALT Alkaline Phosphatase Lactate Dehydrogenase C-Reactive Protein Serum Total Protein Total Protein Albumin Gaxtx-7-Vfsuvrmyd Abnorm Protein Band 1 PEP Interpretation Crossmatch 10/14/16 10/14/16 10/14/16 17:14 18:03 21:25 WBC RBC Hgb Hct MCV MCHC RDW Plt Count Seg Neuts % (Manual) Lymphocytes % (Manual) Nucleated RBC % Seg Neutrophils # Man Lymphocytes # (Manual) Haptoglobin PT 28.9 H INR 2.71 H Fibrinogen Lupus Anticoagulant LA PTT Baseline POC ABG pH POC ABG pCO2 POC ABG pO2 Sodium Potassium Chloride Carbon Dioxide BUN Creatinine Glucose POC Glucose < 40 L 57 L Lactic Acid Uric Acid Calcium Phosphorus Iron TIBC Erythropoietin Ferritin Total Bilirubin Direct Bilirubin AST ALT Alkaline Phosphatase Lactate Dehydrogenase C-Reactive Protein Serum Total Protein Total Protein Albumin Qhbtb-8-Cnbmehhwp Abnorm Protein Band 1 PEP Interpretation Crossmatch 10/15/16 10/15/16 10/15/16 05:32 05:35 05:35 WBC RBC 2.62 L Hgb 8.1 L Hct 25.8 L MCV 98 H D MCHC 31 L RDW 21.2 H Plt Count 61 L Seg Neuts % (Manual) 27.0 L Lymphocytes % (Manual) 10.0 L Nucleated RBC % 2.0 H Seg Neutrophils # Man Lymphocytes # (Manual) 0.8 L Haptoglobin PT INR Fibrinogen Lupus Anticoagulant LA PTT Baseline POC ABG pH POC ABG pCO2 POC ABG pO2 Sodium Potassium Chloride Carbon Dioxide BUN Creatinine Glucose POC Glucose < 40 L Lactic Acid Uric Acid Calcium Phosphorus Iron TIBC Erythropoietin Ferritin Total Bilirubin Direct Bilirubin AST ALT Alkaline Phosphatase Lactate Dehydrogenase 3871 H C-Reactive Protein Serum Total Protein Total Protein Albumin Vazjk-7-Fvwfqruzl Abnorm Protein Band 1 PEP Interpretation Crossmatch 10/15/16 10/15/16 10/15/16 05:35 05:35 05:35 WBC RBC Hgb Hct MCV MCHC RDW Plt Count Seg Neuts % (Manual) Lymphocytes % (Manual) Nucleated RBC % Seg Neutrophils # Man Lymphocytes # (Manual) Haptoglobin PT INR Fibrinogen Lupus Anticoagulant LA PTT Baseline POC ABG pH POC ABG pCO2 POC ABG pO2 Sodium 136 L Potassium 5.3 H D Chloride 91.4 L Carbon Dioxide 6 L* D BUN 57 H Creatinine 7.1 H Glucose 11 L* POC Glucose Lactic Acid 13.60 H* Uric Acid Calcium 7.7 L Phosphorus 10.10 H D Iron TIBC 166 L Erythropoietin Ferritin 9562.0 H Total Bilirubin Direct Bilirubin AST ALT Alkaline Phosphatase Lactate Dehydrogenase C-Reactive Protein Serum Total Protein Total Protein Albumin Uienr-0-Darqbhahs Abnorm Protein Band 1 PEP Interpretation Crossmatch 10/15/16 10/15/16 10/15/16 05:51 06:22 06:52 WBC RBC Hgb Hct MCV MCHC RDW Plt Count Seg Neuts % (Manual) Lymphocytes % (Manual) Nucleated RBC % Seg Neutrophils # Man Lymphocytes # (Manual) Haptoglobin PT INR Fibrinogen Lupus Anticoagulant LA PTT Baseline POC ABG pH 7.189 L POC ABG pCO2 28.9 L POC ABG pO2 Sodium Potassium Chloride Carbon Dioxide BUN Creatinine Glucose POC Glucose 59 L 111 H Lactic Acid Uric Acid Calcium Phosphorus Iron TIBC Erythropoietin Ferritin Total Bilirubin Direct Bilirubin AST ALT Alkaline Phosphatase Lactate Dehydrogenase C-Reactive Protein Serum Total Protein Total Protein Albumin Cxvzk-9-Jwscfflin Abnorm Protein Band 1 PEP Interpretation Crossmatch 10/15/16 10/15/16 10/15/16 08:00 09:57 11:42 WBC RBC Hgb Hct MCV MCHC RDW Plt Count Seg Neuts % (Manual) Lymphocytes % (Manual) Nucleated RBC % Seg Neutrophils # Man Lymphocytes # (Manual) Haptoglobin PT INR Fibrinogen Lupus Anticoagulant LA PTT Baseline POC ABG pH POC ABG pCO2 POC ABG pO2 Sodium Potassium Chloride Carbon Dioxide BUN Creatinine Glucose POC Glucose 63 L 143 H 203 H Lactic Acid Uric Acid Calcium Phosphorus Iron TIBC Erythropoietin Ferritin Total Bilirubin Direct Bilirubin AST ALT Alkaline Phosphatase Lactate Dehydrogenase C-Reactive Protein Serum Total Protein Total Protein Albumin Qqklg-9-Ybotuxpcj Abnorm Protein Band 1 PEP Interpretation Crossmatch 10/15/16 10/15/16 10/15/16 12:00 12:00 13:00 WBC RBC Hgb Hct MCV MCHC RDW Plt Count Seg Neuts % (Manual) Lymphocytes % (Manual) Nucleated RBC % Seg Neutrophils # Man Lymphocytes # (Manual) Haptoglobin <15 L PT INR Fibrinogen Lupus Anticoagulant LA PTT Baseline POC ABG pH POC ABG pCO2 POC ABG pO2 Sodium Potassium Chloride Carbon Dioxide BUN Creatinine Glucose POC Glucose 136 H Lactic Acid 16.30 H* Uric Acid Calcium Phosphorus Iron TIBC Erythropoietin Ferritin Total Bilirubin Direct Bilirubin AST ALT Alkaline Phosphatase Lactate Dehydrogenase C-Reactive Protein Serum Total Protein Total Protein Albumin Unnib-3-Dlerawbqj Abnorm Protein Band 1 PEP Interpretation Crossmatch 10/15/16 10/15/16 10/15/16 14:06 15:15 16:23 WBC RBC Hgb Hct MCV MCHC RDW Plt Count Seg Neuts % (Manual) Lymphocytes % (Manual) Nucleated RBC % Seg Neutrophils # Man Lymphocytes # (Manual) Haptoglobin PT INR Fibrinogen Lupus Anticoagulant LA PTT Baseline POC ABG pH POC ABG pCO2 POC ABG pO2 Sodium Potassium Chloride Carbon Dioxide BUN Creatinine Glucose POC Glucose 132 H 64 L Lactic Acid 20.40 H* Uric Acid Calcium Phosphorus Iron TIBC Erythropoietin Ferritin Total Bilirubin Direct Bilirubin AST ALT Alkaline Phosphatase Lactate Dehydrogenase C-Reactive Protein Serum Total Protein Total Protein Albumin Sgsle-3-Klaasedja Abnorm Protein Band 1 PEP Interpretation Crossmatch 10/15/16 10/15/16 10/15/16 16:40 17:00 17:10 WBC RBC Hgb Hct MCV MCHC RDW Plt Count Seg Neuts % (Manual) Lymphocytes % (Manual) Nucleated RBC % Seg Neutrophils # Man Lymphocytes # (Manual) Haptoglobin PT INR Fibrinogen Lupus Anticoagulant LA PTT Baseline POC ABG pH 7.323 L POC ABG pCO2 25.8 L POC ABG pO2 135 H Sodium Potassium Chloride Carbon Dioxide BUN Creatinine Glucose POC Glucose 159 H Lactic Acid 20.20 H* Uric Acid Calcium Phosphorus Iron TIBC Erythropoietin Ferritin Total Bilirubin Direct Bilirubin AST ALT Alkaline Phosphatase Lactate Dehydrogenase C-Reactive Protein Serum Total Protein Total Protein Albumin Wayqv-1-Jqrbjumnw Abnorm Protein Band 1 PEP Interpretation Crossmatch 10/15/16 10/15/16 10/15/16 17:46 17:53 18:45 WBC RBC Hgb Hct MCV MCHC RDW Plt Count Seg Neuts % (Manual) Lymphocytes % (Manual) Nucleated RBC % Seg Neutrophils # Man Lymphocytes # (Manual) Haptoglobin PT INR Fibrinogen Lupus Anticoagulant LA PTT Baseline POC ABG pH POC ABG pCO2 POC ABG pO2 Sodium Potassium Chloride Carbon Dioxide BUN Creatinine Glucose POC Glucose 126 H 143 H Lactic Acid 21.40 H* Uric Acid Calcium Phosphorus Iron TIBC Erythropoietin Ferritin Total Bilirubin Direct Bilirubin AST ALT Alkaline Phosphatase Lactate Dehydrogenase C-Reactive Protein Serum Total Protein Total Protein Albumin Mebhs-1-Evkeksyzf Abnorm Protein Band 1 PEP Interpretation Crossmatch 10/15/16 10/15/16 10/16/16 20:03 22:59 00:06 WBC RBC Hgb Hct MCV MCHC RDW Plt Count Seg Neuts % (Manual) Lymphocytes % (Manual) Nucleated RBC % Seg Neutrophils # Man Lymphocytes # (Manual) Haptoglobin PT INR Fibrinogen Lupus Anticoagulant LA PTT Baseline POC ABG pH POC ABG pCO2 POC ABG pO2 Sodium Potassium Chloride Carbon Dioxide BUN Creatinine Glucose POC Glucose 66 L 53 L 126 H Lactic Acid Uric Acid Calcium Phosphorus Iron TIBC Erythropoietin Ferritin Total Bilirubin Direct Bilirubin AST ALT Alkaline Phosphatase Lactate Dehydrogenase C-Reactive Protein Serum Total Protein Total Protein Albumin Yyiry-4-Botpxvebz Abnorm Protein Band 1 PEP Interpretation Crossmatch 10/16/16 10/16/16 10/16/16 01:03 03:55 04:00 WBC RBC Hgb Hct MCV MCHC RDW Plt Count Seg Neuts % (Manual) Lymphocytes % (Manual) Nucleated RBC % Seg Neutrophils # Man Lymphocytes # (Manual) Haptoglobin PT INR Fibrinogen Lupus Anticoagulant LA PTT Baseline POC ABG pH POC ABG pCO2 POC ABG pO2 Sodium Potassium Chloride Carbon Dioxide BUN Creatinine Glucose POC Glucose 107 H 260 H Lactic Acid 18.00 H* Uric Acid Calcium Phosphorus Iron TIBC Erythropoietin Ferritin Total Bilirubin Direct Bilirubin AST ALT Alkaline Phosphatase Lactate Dehydrogenase C-Reactive Protein Serum Total Protein Total Protein Albumin Ndtif-0-Gubsaqfim Abnorm Protein Band 1 PEP Interpretation Crossmatch 10/16/16 10/16/16 10/16/16 04:03 07:58 08:34 WBC RBC Hgb Hct MCV MCHC RDW Plt Count Seg Neuts % (Manual) Lymphocytes % (Manual) Nucleated RBC % Seg Neutrophils # Man Lymphocytes # (Manual) Haptoglobin PT INR Fibrinogen Lupus Anticoagulant LA PTT Baseline POC ABG pH 7.527 H POC ABG pCO2 32.9 L POC ABG pO2 119 H Sodium Potassium Chloride Carbon Dioxide BUN Creatinine Glucose POC Glucose 120 H 66 L Lactic Acid Uric Acid Calcium Phosphorus Iron TIBC Erythropoietin Ferritin Total Bilirubin Direct Bilirubin AST ALT Alkaline Phosphatase Lactate Dehydrogenase C-Reactive Protein Serum Total Protein Total Protein Albumin Lgbpr-1-Pywvubemf Abnorm Protein Band 1 PEP Interpretation Crossmatch 10/16/16 10/16/16 10/16/16 09:13 10:06 10:57 WBC RBC Hgb Hct MCV MCHC RDW Plt Count Seg Neuts % (Manual) Lymphocytes % (Manual) Nucleated RBC % Seg Neutrophils # Man Lymphocytes # (Manual) Haptoglobin PT INR Fibrinogen Lupus Anticoagulant LA PTT Baseline POC ABG pH POC ABG pCO2 POC ABG pO2 Sodium Potassium Chloride Carbon Dioxide BUN Creatinine Glucose POC Glucose 147 H 137 H 140 H Lactic Acid Uric Acid Calcium Phosphorus Iron TIBC Erythropoietin Ferritin Total Bilirubin Direct Bilirubin AST ALT Alkaline Phosphatase Lactate Dehydrogenase C-Reactive Protein Serum Total Protein Total Protein Albumin Dtvqk-6-Ljhoqhuji Abnorm Protein Band 1 PEP Interpretation Crossmatch 10/16/16 10/16/16 10/16/16 11:15 11:15 11:15 WBC 25.8 H RBC 2.30 L Hgb 7.0 L Hct 22.3 L MCV 97 H MCHC 31 L RDW 21.2 H Plt Count 42 L Seg Neuts % (Manual) Lymphocytes % (Manual) 3.0 L Nucleated RBC % 2.0 H Seg Neutrophils # Man 11.1 H Lymphocytes # (Manual) 0.8 L Haptoglobin PT INR Fibrinogen Lupus Anticoagulant LA PTT Baseline POC ABG pH POC ABG pCO2 POC ABG pO2 Sodium Potassium Chloride 81.7 L Carbon Dioxide 13 L D BUN 61 H Creatinine 6.2 H Glucose 171 H POC Glucose Lactic Acid 22.70 H* Uric Acid Calcium 7.1 L Phosphorus 9.10 H Iron TIBC Erythropoietin Ferritin Total Bilirubin Direct Bilirubin AST ALT Alkaline Phosphatase Lactate Dehydrogenase C-Reactive Protein Serum Total Protein Total Protein Albumin Kfzqz-9-Fsurqmamz Abnorm Protein Band 1 PEP Interpretation Crossmatch 10/16/16 10/16/16 10/16/16 15:10 15:50 18:11 WBC RBC Hgb Hct MCV MCHC RDW Plt Count Seg Neuts % (Manual) Lymphocytes % (Manual) Nucleated RBC % Seg Neutrophils # Man Lymphocytes # (Manual) Haptoglobin PT INR Fibrinogen Lupus Anticoagulant LA PTT Baseline POC ABG pH POC ABG pCO2 POC ABG pO2 Sodium Potassium Chloride Carbon Dioxide BUN Creatinine Glucose POC Glucose 47 L 164 H 58 L Lactic Acid Uric Acid Calcium Phosphorus Iron TIBC Erythropoietin Ferritin Total Bilirubin Direct Bilirubin AST ALT Alkaline Phosphatase Lactate Dehydrogenase C-Reactive Protein Serum Total Protein Total Protein Albumin Xbork-2-Gtimhmkbr Abnorm Protein Band 1 PEP Interpretation Crossmatch 10/16/16 10/16/16 10/17/16 18:26 21:06 00:06 WBC RBC Hgb Hct MCV MCHC RDW Plt Count Seg Neuts % (Manual) Lymphocytes % (Manual) Nucleated RBC % Seg Neutrophils # Man Lymphocytes # (Manual) Haptoglobin PT INR Fibrinogen Lupus Anticoagulant LA PTT Baseline POC ABG pH POC ABG pCO2 POC ABG pO2 489 H Sodium Potassium Chloride Carbon Dioxide BUN Creatinine Glucose POC Glucose 52 L 120 H Lactic Acid Uric Acid Calcium Phosphorus Iron TIBC Erythropoietin Ferritin Total Bilirubin Direct Bilirubin AST ALT Alkaline Phosphatase Lactate Dehydrogenase C-Reactive Protein Serum Total Protein Total Protein Albumin Jrbjt-0-Lvdwtront Abnorm Protein Band 1 PEP Interpretation Crossmatch 10/17/16 10/17/16 10/17/16 04:55 04:55 05:04 WBC 25.5 H RBC 2.23 L Hgb 6.6 L Hct 21.2 L MCV 95 H MCHC 31 L RDW 20.5 H Plt Count 35 L Seg Neuts % (Manual) 79.0 H Lymphocytes % (Manual) 0 L Nucleated RBC % Seg Neutrophils # Man 20.1 H Lymphocytes # (Manual) 0.0 L Haptoglobin PT INR Fibrinogen Lupus Anticoagulant LA PTT Baseline POC ABG pH POC ABG pCO2 27.2 L POC ABG pO2 162 H Sodium Potassium Chloride 91.5 L Carbon Dioxide 16 L BUN 45 H Creatinine 4.5 H Glucose 103 H POC Glucose Lactic Acid Uric Acid Calcium 6.9 L Phosphorus 5.80 H D Iron TIBC Erythropoietin Ferritin Total Bilirubin Direct Bilirubin AST ALT Alkaline Phosphatase Lactate Dehydrogenase C-Reactive Protein Serum Total Protein Total Protein Albumin Mzumi-3-Svpyzxkiq Abnorm Protein Band 1 PEP Interpretation Crossmatch 10/17/16 10/17/16 10/17/16 07:59 09:04 10:04 WBC RBC Hgb Hct MCV MCHC RDW Plt Count Seg Neuts % (Manual) Lymphocytes % (Manual) Nucleated RBC % Seg Neutrophils # Man Lymphocytes # (Manual) Haptoglobin PT INR Fibrinogen Lupus Anticoagulant LA PTT Baseline POC ABG pH POC ABG pCO2 POC ABG pO2 Sodium Potassium Chloride Carbon Dioxide BUN Creatinine Glucose POC Glucose 65 L 118 H Lactic Acid Uric Acid Calcium Phosphorus Iron TIBC Erythropoietin Ferritin Total Bilirubin Direct Bilirubin AST ALT Alkaline Phosphatase Lactate Dehydrogenase C-Reactive Protein Serum Total Protein Total Protein Albumin Kobdb-6-Axcyktetb Abnorm Protein Band 1 PEP Interpretation Crossmatch See Detail 10/17/16 10/17/16 10/17/16 11:52 13:08 15:42 WBC RBC Hgb Hct MCV MCHC RDW Plt Count Seg Neuts % (Manual) Lymphocytes % (Manual) Nucleated RBC % Seg Neutrophils # Man Lymphocytes # (Manual) Haptoglobin PT INR Fibrinogen Lupus Anticoagulant LA PTT Baseline POC ABG pH POC ABG pCO2 POC ABG pO2 Sodium Potassium Chloride Carbon Dioxide BUN Creatinine Glucose POC Glucose 125 H 106 H 55 L Lactic Acid Uric Acid Calcium Phosphorus Iron TIBC Erythropoietin Ferritin Total Bilirubin Direct Bilirubin AST ALT Alkaline Phosphatase Lactate Dehydrogenase C-Reactive Protein Serum Total Protein Total Protein Albumin Opgcp-7-Lahwdqrim Abnorm Protein Band 1 PEP Interpretation Crossmatch 10/17/16 10/17/16 10/17/16 17:39 20:37 21:02 WBC RBC Hgb Hct MCV MCHC RDW Plt Count Seg Neuts % (Manual) Lymphocytes % (Manual) Nucleated RBC % Seg Neutrophils # Man Lymphocytes # (Manual) Haptoglobin PT INR Fibrinogen Lupus Anticoagulant LA PTT Baseline POC ABG pH POC ABG pCO2 28.2 L POC ABG pO2 Sodium Potassium Chloride Carbon Dioxide BUN Creatinine Glucose POC Glucose < 40 L 106 H Lactic Acid Uric Acid Calcium Phosphorus Iron TIBC Erythropoietin Ferritin Total Bilirubin Direct Bilirubin AST ALT Alkaline Phosphatase Lactate Dehydrogenase C-Reactive Protein Serum Total Protein Total Protein Albumin Lwwoo-8-Alnszrcbk Abnorm Protein Band 1 PEP Interpretation Crossmatch 10/17/16 10/17/16 10/18/16 22:18 23:14 00:28 WBC RBC Hgb Hct MCV MCHC RDW Plt Count Seg Neuts % (Manual) Lymphocytes % (Manual) Nucleated RBC % Seg Neutrophils # Man Lymphocytes # (Manual) Haptoglobin PT INR Fibrinogen Lupus Anticoagulant LA PTT Baseline POC ABG pH POC ABG pCO2 POC ABG pO2 Sodium Potassium Chloride Carbon Dioxide BUN Creatinine Glucose POC Glucose 111 H 118 H 112 H Lactic Acid Uric Acid Calcium Phosphorus Iron TIBC Erythropoietin Ferritin Total Bilirubin Direct Bilirubin AST ALT Alkaline Phosphatase Lactate Dehydrogenase C-Reactive Protein Serum Total Protein Total Protein Albumin Ndcua-7-Jysiskoch Abnorm Protein Band 1 PEP Interpretation Crossmatch 10/18/16 10/18/16 10/18/16 05:00 05:00 05:15 WBC 27.3 H RBC 2.75 L Hgb 7.9 L Hct 25.3 L MCV MCHC 31 L RDW 20.7 H Plt Count 31 L Seg Neuts % (Manual) 87.0 H Lymphocytes % (Manual) 1.0 L Nucleated RBC % 1.0 H Seg Neutrophils # Man 23.8 H Lymphocytes # (Manual) 0.3 L Haptoglobin PT INR Fibrinogen Lupus Anticoagulant LA PTT Baseline POC ABG pH 7.466 H POC ABG pCO2 25.1 L POC ABG pO2 Sodium Potassium Chloride 88.7 L Carbon Dioxide 18 L BUN 66 H Creatinine 4.7 H Glucose POC Glucose Lactic Acid Uric Acid Calcium 6.1 L Phosphorus 7.30 H D Iron TIBC Erythropoietin Ferritin Total Bilirubin Direct Bilirubin AST ALT Alkaline Phosphatase Lactate Dehydrogenase C-Reactive Protein Serum Total Protein Total Protein Albumin Uqefv-6-Hitkfhwmj Abnorm Protein Band 1 PEP Interpretation Crossmatch 10/18/16 10/18/16 10/18/16 07:15 07:44 09:07 WBC RBC Hgb Hct MCV MCHC RDW Plt Count Seg Neuts % (Manual) Lymphocytes % (Manual) Nucleated RBC % Seg Neutrophils # Man Lymphocytes # (Manual) Haptoglobin PT INR Fibrinogen Lupus Anticoagulant LA PTT Baseline POC ABG pH POC ABG pCO2 POC ABG pO2 Sodium Potassium Chloride Carbon Dioxide BUN Creatinine Glucose POC Glucose 64 L 156 H 117 H Lactic Acid Uric Acid Calcium Phosphorus Iron TIBC Erythropoietin Ferritin Total Bilirubin Direct Bilirubin AST ALT Alkaline Phosphatase Lactate Dehydrogenase C-Reactive Protein Serum Total Protein Total Protein Albumin Owduh-2-Lfhvhotdx Abnorm Protein Band 1 PEP Interpretation Crossmatch 10/18/16 10/18/16 10/18/16 09:15 14:00 18:21 WBC RBC Hgb Hct MCV MCHC RDW Plt Count Seg Neuts % (Manual) Lymphocytes % (Manual) Nucleated RBC % Seg Neutrophils # Man Lymphocytes # (Manual) Haptoglobin PT INR Fibrinogen Lupus Anticoagulant LA PTT Baseline POC ABG pH POC ABG pCO2 POC ABG pO2 Sodium Potassium Chloride Carbon Dioxide BUN Creatinine Glucose POC Glucose 106 H 112 H Lactic Acid 14.30 H* Uric Acid Calcium Phosphorus Iron TIBC Erythropoietin Ferritin Total Bilirubin Direct Bilirubin AST ALT Alkaline Phosphatase Lactate Dehydrogenase C-Reactive Protein Serum Total Protein Total Protein Albumin Izzkm-3-Kyzdajfzl Abnorm Protein Band 1 PEP Interpretation Crossmatch 10/18/16 10/18/16 10/18/16 19:58 20:55 22:11 WBC RBC Hgb Hct MCV MCHC RDW Plt Count Seg Neuts % (Manual) Lymphocytes % (Manual) Nucleated RBC % Seg Neutrophils # Man Lymphocytes # (Manual) Haptoglobin PT INR Fibrinogen Lupus Anticoagulant LA PTT Baseline POC ABG pH POC ABG pCO2 POC ABG pO2 Sodium Potassium Chloride Carbon Dioxide BUN Creatinine Glucose POC Glucose 127 H 125 H 159 H Lactic Acid Uric Acid Calcium Phosphorus Iron TIBC Erythropoietin Ferritin Total Bilirubin Direct Bilirubin AST ALT Alkaline Phosphatase Lactate Dehydrogenase C-Reactive Protein Serum Total Protein Total Protein Albumin Znztd-7-Noytkqlmt Abnorm Protein Band 1 PEP Interpretation Crossmatch 10/18/16 10/18/16 10/19/16 23:11 23:57 01:06 WBC RBC Hgb Hct MCV MCHC RDW Plt Count Seg Neuts % (Manual) Lymphocytes % (Manual) Nucleated RBC % Seg Neutrophils # Man Lymphocytes # (Manual) Haptoglobin PT INR Fibrinogen Lupus Anticoagulant LA PTT Baseline POC ABG pH POC ABG pCO2 POC ABG pO2 Sodium Potassium Chloride Carbon Dioxide BUN Creatinine Glucose POC Glucose 122 H 137 H 162 H Lactic Acid Uric Acid Calcium Phosphorus Iron TIBC Erythropoietin Ferritin Total Bilirubin Direct Bilirubin AST ALT Alkaline Phosphatase Lactate Dehydrogenase C-Reactive Protein Serum Total Protein Total Protein Albumin Snjrm-8-Wlhftqrlu Abnorm Protein Band 1 PEP Interpretation Crossmatch 10/19/16 10/19/16 10/19/16 01:59 03:07 04:10 WBC RBC Hgb Hct MCV MCHC RDW Plt Count Seg Neuts % (Manual) Lymphocytes % (Manual) Nucleated RBC % Seg Neutrophils # Man Lymphocytes # (Manual) Haptoglobin PT INR Fibrinogen Lupus Anticoagulant LA PTT Baseline POC ABG pH POC ABG pCO2 POC ABG pO2 Sodium Potassium Chloride Carbon Dioxide BUN Creatinine Glucose POC Glucose 154 H 178 H 186 H Lactic Acid Uric Acid Calcium Phosphorus Iron TIBC Erythropoietin Ferritin Total Bilirubin Direct Bilirubin AST ALT Alkaline Phosphatase Lactate Dehydrogenase C-Reactive Protein Serum Total Protein Total Protein Albumin Qvrbu-7-Jajnzerhh Abnorm Protein Band 1 PEP Interpretation Crossmatch 10/19/16 10/19/16 10/19/16 05:14 05:15 05:47 WBC RBC Hgb Hct MCV MCHC RDW Plt Count Seg Neuts % (Manual) Lymphocytes % (Manual) Nucleated RBC % Seg Neutrophils # Man Lymphocytes # (Manual) Haptoglobin PT INR Fibrinogen Lupus Anticoagulant LA PTT Baseline POC ABG pH 7.581 H POC ABG pCO2 22.9 L POC ABG pO2 58 L Sodium Potassium Chloride Carbon Dioxide BUN Creatinine Glucose POC Glucose 197 H 204 H Lactic Acid Uric Acid Calcium Phosphorus Iron TIBC Erythropoietin Ferritin Total Bilirubin Direct Bilirubin AST ALT Alkaline Phosphatase Lactate Dehydrogenase C-Reactive Protein Serum Total Protein Total Protein Albumin Iiady-4-Bdlaikzee Abnorm Protein Band 1 PEP Interpretation Crossmatch 10/19/16 10/19/16 10/19/16 06:00 06:00 07:51 WBC 23.0 H RBC 2.54 L Hgb 7.5 L Hct 23.0 L MCV MCHC RDW 20.7 H Plt Count 25 L Seg Neuts % (Manual) 91.0 H Lymphocytes % (Manual) 2.0 L Nucleated RBC % 1.0 H Seg Neutrophils # Man 20.9 H Lymphocytes # (Manual) 0.5 L Haptoglobin PT INR Fibrinogen Lupus Anticoagulant LA PTT Baseline POC ABG pH POC ABG pCO2 POC ABG pO2 Sodium Potassium Chloride 88.7 L Carbon Dioxide 21 L BUN 70 H Creatinine 3.9 H Glucose 189 H POC Glucose 145 H Lactic Acid Uric Acid Calcium 5.6 L* Phosphorus 6.30 H Iron TIBC Erythropoietin Ferritin Total Bilirubin Direct Bilirubin AST ALT Alkaline Phosphatase Lactate Dehydrogenase C-Reactive Protein Serum Total Protein Total Protein Albumin Wlxtq-4-Burcplmag Abnorm Protein Band 1 PEP Interpretation Crossmatch 10/19/16 10/19/16 10/19/16 09:14 10:01 12:14 WBC RBC Hgb Hct MCV MCHC RDW Plt Count Seg Neuts % (Manual) Lymphocytes % (Manual) Nucleated RBC % Seg Neutrophils # Man Lymphocytes # (Manual) Haptoglobin PT INR Fibrinogen Lupus Anticoagulant LA PTT Baseline POC ABG pH POC ABG pCO2 POC ABG pO2 Sodium Potassium Chloride Carbon Dioxide BUN Creatinine Glucose POC Glucose 173 H 153 H 180 H Lactic Acid Uric Acid Calcium Phosphorus Iron TIBC Erythropoietin Ferritin Total Bilirubin Direct Bilirubin AST ALT Alkaline Phosphatase Lactate Dehydrogenase C-Reactive Protein Serum Total Protein Total Protein Albumin Hchgx-0-Uhtbbdgua Abnorm Protein Band 1 PEP Interpretation Crossmatch 10/19/16 10/19/16 10/19/16 14:15 16:38 20:27 WBC RBC Hgb Hct MCV MCHC RDW Plt Count Seg Neuts % (Manual) Lymphocytes % (Manual) Nucleated RBC % Seg Neutrophils # Man Lymphocytes # (Manual) Haptoglobin PT INR Fibrinogen Lupus Anticoagulant LA PTT Baseline POC ABG pH POC ABG pCO2 POC ABG pO2 Sodium Potassium Chloride Carbon Dioxide BUN Creatinine Glucose POC Glucose 194 H 202 H Lactic Acid Uric Acid Calcium Phosphorus Iron TIBC Erythropoietin 148.2 H Ferritin Total Bilirubin Direct Bilirubin AST ALT Alkaline Phosphatase Lactate Dehydrogenase C-Reactive Protein Serum Total Protein Total Protein Albumin Nbavl-7-Dvxrffamk Abnorm Protein Band 1 PEP Interpretation Crossmatch 10/19/16 10/20/16 10/20/16 23:27 04:06 05:00 WBC RBC Hgb Hct MCV MCHC RDW Plt Count Seg Neuts % (Manual) Lymphocytes % (Manual) Nucleated RBC % Seg Neutrophils # Man Lymphocytes # (Manual) Haptoglobin PT INR Fibrinogen Lupus Anticoagulant LA PTT Baseline POC ABG pH POC ABG pCO2 POC ABG pO2 Sodium Potassium Chloride 88.8 L Carbon Dioxide BUN 93 H Creatinine 4.3 H Glucose 204 H POC Glucose 201 H 200 H Lactic Acid Uric Acid Calcium 5.2 L* Phosphorus Iron TIBC Erythropoietin Ferritin Total Bilirubin Direct Bilirubin AST ALT Alkaline Phosphatase Lactate Dehydrogenase C-Reactive Protein Serum Total Protein Total Protein Albumin Laukq-1-Ivkmrhzge Abnorm Protein Band 1 PEP Interpretation Crossmatch 10/20/16 10/20/16 10/20/16 05:16 06:00 07:43 WBC 24.8 H RBC 2.52 L Hgb 7.4 L Hct 22.9 L MCV MCHC RDW 19.9 H Plt Count 23 L Seg Neuts % (Manual) 97.0 H Lymphocytes % (Manual) 1.0 L Nucleated RBC % 9.0 H Seg Neutrophils # Man 24.1 H Lymphocytes # (Manual) 0.2 L Haptoglobin PT INR Fibrinogen Lupus Anticoagulant LA PTT Baseline POC ABG pH 7.463 H POC ABG pCO2 POC ABG pO2 157 H Sodium Potassium Chloride Carbon Dioxide BUN Creatinine Glucose POC Glucose 192 H Lactic Acid Uric Acid Calcium Phosphorus Iron TIBC Erythropoietin Ferritin Total Bilirubin Direct Bilirubin AST ALT Alkaline Phosphatase Lactate Dehydrogenase C-Reactive Protein Serum Total Protein Total Protein Albumin Suasw-1-Ljdsfdxxe Abnorm Protein Band 1 PEP Interpretation Crossmatch 10/20/16 10/20/16 10/20/16 12:11 15:32 21:23 WBC RBC Hgb Hct MCV MCHC RDW Plt Count Seg Neuts % (Manual) Lymphocytes % (Manual) Nucleated RBC % Seg Neutrophils # Man Lymphocytes # (Manual) Haptoglobin PT INR Fibrinogen Lupus Anticoagulant LA PTT Baseline POC ABG pH POC ABG pCO2 POC ABG pO2 Sodium Potassium Chloride Carbon Dioxide BUN Creatinine Glucose POC Glucose 172 H 216 H 271 H Lactic Acid Uric Acid Calcium Phosphorus Iron TIBC Erythropoietin Ferritin Total Bilirubin Direct Bilirubin AST ALT Alkaline Phosphatase Lactate Dehydrogenase C-Reactive Protein Serum Total Protein Total Protein Albumin Xygek-6-Ctffhztym Abnorm Protein Band 1 PEP Interpretation Crossmatch 10/20/16 10/21/16 10/21/16 23:49 03:53 04:58 WBC RBC Hgb Hct MCV MCHC RDW Plt Count Seg Neuts % (Manual) Lymphocytes % (Manual) Nucleated RBC % Seg Neutrophils # Man Lymphocytes # (Manual) Haptoglobin PT INR Fibrinogen Lupus Anticoagulant LA PTT Baseline POC ABG pH 7.459 H POC ABG pCO2 POC ABG pO2 113 H Sodium 136 L Potassium 2.8 L* D Chloride 91.6 L Carbon Dioxide BUN 62 H Creatinine 2.8 H Glucose 236 H POC Glucose 317 H Lactic Acid Uric Acid Calcium 6.2 L D Phosphorus Iron TIBC Erythropoietin Ferritin Total Bilirubin 2.70 H Direct Bilirubin AST 73 H ALT 57 H Alkaline Phosphatase 158 H Lactate Dehydrogenase C-Reactive Protein Serum Total Protein Total Protein 4.9 L Albumin 2.6 L Xlfcc-4-Kwvajdtge Abnorm Protein Band 1 PEP Interpretation Crossmatch 0510/21/16 10/21/16 05:25 07:11 10:30 WBC 28.1 H RBC 2.36 L Hgb 7.0 L Hct 21.6 L MCV MCHC RDW 20.0 H Plt Count 14 L* Seg Neuts % (Manual) 92.0 H Lymphocytes % (Manual) 0 L Nucleated RBC % 5.0 H Seg Neutrophils # Man 25.9 H Lymphocytes # (Manual) 0.0 L Haptoglobin PT INR Fibrinogen Lupus Anticoagulant LA PTT Baseline POC ABG pH POC ABG pCO2 POC ABG pO2 Sodium Potassium Chloride Carbon Dioxide BUN Creatinine Glucose POC Glucose 237 H 206 H Lactic Acid Uric Acid Calcium Phosphorus Iron TIBC Erythropoietin Ferritin Total Bilirubin Direct Bilirubin AST ALT Alkaline Phosphatase Lactate Dehydrogenase C-Reactive Protein Serum Total Protein Total Protein Albumin Lnqip-4-Ttfoabamg Abnorm Protein Band 1 PEP Interpretation Crossmatch 10/21/16 10/21/16 10/21/16 11:25 12:31 16:33 WBC RBC Hgb Hct MCV MCHC RDW Plt Count Seg Neuts % (Manual) Lymphocytes % (Manual) Nucleated RBC % Seg Neutrophils # Man Lymphocytes # (Manual) Haptoglobin PT 49.1 H INR 5.28 H* Fibrinogen Lupus Anticoagulant LA PTT Baseline POC ABG pH POC ABG pCO2 POC ABG pO2 Sodium Potassium Chloride Carbon Dioxide BUN Creatinine Glucose POC Glucose 145 H 151 H Lactic Acid Uric Acid Calcium Phosphorus Iron TIBC Erythropoietin Ferritin Total Bilirubin Direct Bilirubin AST ALT Alkaline Phosphatase Lactate Dehydrogenase C-Reactive Protein Serum Total Protein Total Protein Albumin Mstza-0-Uutdvrgkc Abnorm Protein Band 1 PEP Interpretation Crossmatch 10/21/16 10/22/16 10/22/16 19:53 00:00 05:23 WBC RBC Hgb Hct MCV MCHC RDW Plt Count Seg Neuts % (Manual) Lymphocytes % (Manual) Nucleated RBC % Seg Neutrophils # Man Lymphocytes # (Manual) Haptoglobin PT INR Fibrinogen Lupus Anticoagulant LA PTT Baseline POC ABG pH POC ABG pCO2 POC ABG pO2 Sodium Potassium Chloride Carbon Dioxide BUN Creatinine Glucose POC Glucose 170 H 168 H 131 H Lactic Acid Uric Acid Calcium Phosphorus Iron TIBC Erythropoietin Ferritin Total Bilirubin Direct Bilirubin AST ALT Alkaline Phosphatase Lactate Dehydrogenase C-Reactive Protein Serum Total Protein Total Protein Albumin Ajpsb-2-Tkxorqcvw Abnorm Protein Band 1 PEP Interpretation Crossmatch 10/22/16 10/22/16 10/22/16 05:25 05:35 13:03 WBC RBC Hgb Hct MCV MCHC RDW Plt Count Seg Neuts % (Manual) Lymphocytes % (Manual) Nucleated RBC % Seg Neutrophils # Man Lymphocytes # (Manual) Haptoglobin PT INR Fibrinogen Lupus Anticoagulant LA PTT Baseline POC ABG pH 7.462 H POC ABG pCO2 POC ABG pO2 Sodium 135 L Potassium 3.0 L Chloride 88.5 L Carbon Dioxide BUN 84 H Creatinine 3.4 H Glucose 124 H POC Glucose 164 H Lactic Acid Uric Acid Calcium 5.9 L* Phosphorus Iron TIBC Erythropoietin Ferritin Total Bilirubin 2.00 H Direct Bilirubin AST 85 H ALT Alkaline Phosphatase 199 H Lactate Dehydrogenase C-Reactive Protein Serum Total Protein Total Protein 5.0 L Albumin 2.5 L Vnrci-6-Zsdzecbxd Abnorm Protein Band 1 PEP Interpretation Crossmatch 10/22/16 10/22/16 10/23/16 17:14 23:16 04:47 WBC RBC Hgb Hct MCV MCHC RDW Plt Count Seg Neuts % (Manual) Lymphocytes % (Manual) Nucleated RBC % Seg Neutrophils # Man Lymphocytes # (Manual) Haptoglobin PT INR Fibrinogen Lupus Anticoagulant LA PTT Baseline POC ABG pH 7.476 H POC ABG pCO2 POC ABG pO2 108 H Sodium Potassium Chloride Carbon Dioxide BUN Creatinine Glucose POC Glucose 188 H 167 H Lactic Acid Uric Acid Calcium Phosphorus Iron TIBC Erythropoietin Ferritin Total Bilirubin Direct Bilirubin AST ALT Alkaline Phosphatase Lactate Dehydrogenase C-Reactive Protein Serum Total Protein Total Protein Albumin Asnnp-3-Odhwcohxv Abnorm Protein Band 1 PEP Interpretation Crossmatch 10/23/16 10/23/16 10/23/16 05:49 07:00 07:12 WBC 24.2 H RBC 2.27 L Hgb 7.0 L Hct 21.1 L MCV MCHC RDW 19.7 H Plt Count 35 L D Seg Neuts % (Manual) Lymphocytes % (Manual) Nucleated RBC % Seg Neutrophils # Man Lymphocytes # (Manual) Haptoglobin PT INR Fibrinogen Lupus Anticoagulant LA PTT Baseline POC ABG pH POC ABG pCO2 POC ABG pO2 Sodium Potassium 3.5 L Chloride 95.7 L Carbon Dioxide BUN 55 H Creatinine 2.7 H Glucose 103 H POC Glucose 106 H Lactic Acid Uric Acid Calcium 7.1 L D Phosphorus Iron TIBC Erythropoietin Ferritin Total Bilirubin Direct Bilirubin AST ALT Alkaline Phosphatase Lactate Dehydrogenase C-Reactive Protein Serum Total Protein Total Protein Albumin Jnlop-4-Ohmdxtydk Abnorm Protein Band 1 PEP Interpretation Crossmatch 10/24/16 10/24/16 10/24/16 00:12 05:16 07:00 WBC 17.9 H RBC 2.12 L Hgb 6.5 L Hct 19.9 L* MCV MCHC RDW 19.3 H Plt Count 44 L Seg Neuts % (Manual) Lymphocytes % (Manual) Nucleated RBC % Seg Neutrophils # Man Lymphocytes # (Manual) Haptoglobin PT INR Fibrinogen Lupus Anticoagulant LA PTT Baseline POC ABG pH POC ABG pCO2 POC ABG pO2 Sodium Potassium Chloride Carbon Dioxide BUN Creatinine Glucose POC Glucose 116 H 135 H Lactic Acid Uric Acid Calcium Phosphorus Iron TIBC Erythropoietin Ferritin Total Bilirubin Direct Bilirubin AST ALT Alkaline Phosphatase Lactate Dehydrogenase C-Reactive Protein Serum Total Protein Total Protein Albumin Gjnhn-4-Vszoyqvqr Abnorm Protein Band 1 PEP Interpretation Crossmatch 10/24/16 10/24/16 10/24/16 07:00 11:45 12:12 WBC RBC Hgb Hct MCV MCHC RDW Plt Count Seg Neuts % (Manual) Lymphocytes % (Manual) Nucleated RBC % Seg Neutrophils # Man Lymphocytes # (Manual) Haptoglobin PT INR Fibrinogen Lupus Anticoagulant LA PTT Baseline POC ABG pH POC ABG pCO2 POC ABG pO2 Sodium Potassium Chloride 92.9 L Carbon Dioxide BUN 74 H Creatinine 3.3 H Glucose 136 H POC Glucose 177 H Lactic Acid Uric Acid Calcium 6.6 L Phosphorus Iron TIBC Erythropoietin Ferritin Total Bilirubin 2.10 H Direct Bilirubin AST 68 H ALT Alkaline Phosphatase 224 H Lactate Dehydrogenase C-Reactive Protein Serum Total Protein Total Protein 4.8 L Albumin 2.3 L Siaaq-5-Xzcwskzqd Abnorm Protein Band 1 PEP Interpretation Crossmatch See Detail 10/24/16 10/24/16 10/24/16 16:30 16:30 17:28 WBC RBC Hgb Hct MCV MCHC RDW Plt Count Seg Neuts % (Manual) Lymphocytes % (Manual) Nucleated RBC % Seg Neutrophils # Man Lymphocytes # (Manual) Haptoglobin PT INR Fibrinogen Lupus Anticoagulant LA PTT Baseline POC ABG pH POC ABG pCO2 POC ABG pO2 Sodium Potassium Chloride Carbon Dioxide BUN Creatinine Glucose POC Glucose 128 H Lactic Acid 3.00 H* Uric Acid Calcium Phosphorus Iron TIBC Erythropoietin Ferritin Total Bilirubin Direct Bilirubin AST ALT Alkaline Phosphatase Lactate Dehydrogenase C-Reactive Protein 7.40 H Serum Total Protein Total Protein Albumin Tknsq-5-Glezatvrk Abnorm Protein Band 1 PEP Interpretation Crossmatch 10/24/16 10/24/16 10/25/16 18:40 23:32 05:00 WBC 17.5 H RBC 2.99 L Hgb 9.1 L Hct 26.9 L D MCV MCHC RDW 17.7 H Plt Count 53 L Seg Neuts % (Manual) Lymphocytes % (Manual) Nucleated RBC % Seg Neutrophils # Man Lymphocytes # (Manual) Haptoglobin PT INR Fibrinogen Lupus Anticoagulant LA PTT Baseline POC ABG pH POC ABG pCO2 POC ABG pO2 Sodium Potassium Chloride Carbon Dioxide BUN Creatinine Glucose POC Glucose 140 H Lactic Acid 3.10 H* Uric Acid Calcium Phosphorus Iron TIBC Erythropoietin Ferritin Total Bilirubin Direct Bilirubin AST ALT Alkaline Phosphatase Lactate Dehydrogenase C-Reactive Protein Serum Total Protein Total Protein Albumin Gmqku-2-Tfdbnnnfm Abnorm Protein Band 1 PEP Interpretation Crossmatch 10/25/16 10/25/16 10/25/16 05:00 05:22 11:58 WBC RBC Hgb Hct MCV MCHC RDW Plt Count Seg Neuts % (Manual) Lymphocytes % (Manual) Nucleated RBC % Seg Neutrophils # Man Lymphocytes # (Manual) Haptoglobin PT INR Fibrinogen Lupus Anticoagulant LA PTT Baseline POC ABG pH POC ABG pCO2 POC ABG pO2 Sodium Potassium Chloride 91.6 L Carbon Dioxide BUN 89 H Creatinine 3.9 H Glucose 150 H POC Glucose 164 H 189 H Lactic Acid Uric Acid Calcium 6.9 L Phosphorus Iron TIBC Erythropoietin Ferritin Total Bilirubin Direct Bilirubin AST ALT Alkaline Phosphatase Lactate Dehydrogenase C-Reactive Protein Serum Total Protein Total Protein Albumin Sgmkn-7-Fynyiqtho Abnorm Protein Band 1 PEP Interpretation Crossmatch 10/25/16 10/25/16 10/26/16 17:56 23:12 04:00 WBC RBC Hgb Hct MCV MCHC RDW Plt Count Seg Neuts % (Manual) Lymphocytes % (Manual) Nucleated RBC % Seg Neutrophils # Man Lymphocytes # (Manual) Haptoglobin PT INR Fibrinogen Lupus Anticoagulant LA PTT Baseline POC ABG pH POC ABG pCO2 POC ABG pO2 Sodium 135 L Potassium Chloride 90.7 L Carbon Dioxide BUN 64 H Creatinine 2.9 H Glucose 132 H POC Glucose 156 H 133 H Lactic Acid Uric Acid Calcium 7.3 L Phosphorus Iron TIBC Erythropoietin Ferritin Total Bilirubin Direct Bilirubin AST ALT Alkaline Phosphatase Lactate Dehydrogenase C-Reactive Protein Serum Total Protein Total Protein Albumin Ytfnf-0-Gmjkptqiu Abnorm Protein Band 1 PEP Interpretation Crossmatch 10/26/16 10/26/16 10/26/16 05:14 06:15 11:51 WBC 18.6 H RBC 3.15 L Hgb 9.6 L Hct 29.0 L MCV MCHC RDW 17.8 H Plt Count 71 L Seg Neuts % (Manual) 85.0 H Lymphocytes % (Manual) 1.0 L Nucleated RBC % Seg Neutrophils # Man 15.8 H Lymphocytes # (Manual) 0.2 L Haptoglobin PT INR Fibrinogen Lupus Anticoagulant LA PTT Baseline POC ABG pH POC ABG pCO2 POC ABG pO2 Sodium Potassium Chloride Carbon Dioxide BUN Creatinine Glucose POC Glucose 130 H 139 H Lactic Acid Uric Acid Calcium Phosphorus Iron TIBC Erythropoietin Ferritin Total Bilirubin Direct Bilirubin AST ALT Alkaline Phosphatase Lactate Dehydrogenase C-Reactive Protein Serum Total Protein Total Protein Albumin Epicm-4-Kjwkcfvuk Abnorm Protein Band 1 PEP Interpretation Crossmatch 10/26/16 10/26/16 10/27/16 17:25 23:35 04:10 WBC 16.8 H RBC 3.38 L Hgb 10.1 L Hct 31.0 L MCV MCHC RDW 18.0 H Plt Count 77 L Seg Neuts % (Manual) 92.0 H Lymphocytes % (Manual) 1.0 L Nucleated RBC % 1.0 H Seg Neutrophils # Man 15.5 H Lymphocytes # (Manual) 0.2 L Haptoglobin PT INR Fibrinogen Lupus Anticoagulant LA PTT Baseline POC ABG pH POC ABG pCO2 POC ABG pO2 Sodium Potassium Chloride Carbon Dioxide BUN Creatinine Glucose POC Glucose 118 H 145 H Lactic Acid Uric Acid Calcium Phosphorus Iron TIBC Erythropoietin Ferritin Total Bilirubin Direct Bilirubin AST ALT Alkaline Phosphatase Lactate Dehydrogenase C-Reactive Protein Serum Total Protein Total Protein Albumin Kzono-6-Oohznmnoi Abnorm Protein Band 1 PEP Interpretation Crossmatch 10/27/16 10/27/16 10/27/16 04:10 05:53 08:14 WBC RBC Hgb Hct MCV MCHC RDW Plt Count Seg Neuts % (Manual) Lymphocytes % (Manual) Nucleated RBC % Seg Neutrophils # Man Lymphocytes # (Manual) Haptoglobin PT 23.0 H INR 2.03 H Fibrinogen Lupus Anticoagulant LA PTT Baseline POC ABG pH POC ABG pCO2 POC ABG pO2 Sodium Potassium Chloride 95.5 L Carbon Dioxide BUN 63 H Creatinine 2.8 H Glucose 112 H POC Glucose 127 H Lactic Acid Uric Acid Calcium 7.5 L Phosphorus Iron TIBC Erythropoietin Ferritin Total Bilirubin Direct Bilirubin AST ALT Alkaline Phosphatase Lactate Dehydrogenase C-Reactive Protein Serum Total Protein Total Protein Albumin Esxsa-9-Ncdphaxok Abnorm Protein Band 1 PEP Interpretation Crossmatch 10/27/16 10/27/1617 11:56 17:47 23:55 WBC RBC Hgb Hct MCV MCHC RDW Plt Count Seg Neuts % (Manual) Lymphocytes % (Manual) Nucleated RBC % Seg Neutrophils # Man Lymphocytes # (Manual) Haptoglobin PT INR Fibrinogen Lupus Anticoagulant LA PTT Baseline POC ABG pH POC ABG pCO2 POC ABG pO2 Sodium Potassium Chloride Carbon Dioxide BUN Creatinine Glucose POC Glucose 113 H 117 H 142 H Lactic Acid Uric Acid Calcium Phosphorus Iron TIBC Erythropoietin Ferritin Total Bilirubin Direct Bilirubin AST ALT Alkaline Phosphatase Lactate Dehydrogenase C-Reactive Protein Serum Total Protein Total Protein Albumin Utvow-4-Clgplsqfj Abnorm Protein Band 1 PEP Interpretation Crossmatch 10/28/16 10/28/16 10/28/16 05:45 05:45 11:44 WBC 16.6 H RBC 3.18 L Hgb 9.5 L Hct 29.3 L MCV MCHC RDW 17.6 H Plt Count 83 L Seg Neuts % (Manual) 87.0 H Lymphocytes % (Manual) 3.0 L Nucleated RBC % Seg Neutrophils # Man 14.4 H Lymphocytes # (Manual) 0.5 L Haptoglobin PT INR Fibrinogen Lupus Anticoagulant LA PTT Baseline POC ABG pH POC ABG pCO2 POC ABG pO2 Sodium Potassium Chloride 94.6 L Carbon Dioxide 21 L BUN 90 H Creatinine 3.9 H Glucose 152 H POC Glucose 151 H Lactic Acid Uric Acid Calcium 6.9 L Phosphorus Iron TIBC Erythropoietin Ferritin Total Bilirubin Direct Bilirubin AST ALT Alkaline Phosphatase Lactate Dehydrogenase C-Reactive Protein Serum Total Protein Total Protein Albumin Evkpr-4-Nhcszwqxq Abnorm Protein Band 1 PEP Interpretation Crossmatch 10/28/16 10/28/16 10/29/16 17:31 23:47 04:53 WBC RBC Hgb Hct MCV MCHC RDW Plt Count Seg Neuts % (Manual) Lymphocytes % (Manual) Nucleated RBC % Seg Neutrophils # Man Lymphocytes # (Manual) Haptoglobin PT INR Fibrinogen Lupus Anticoagulant LA PTT Baseline POC ABG pH POC ABG pCO2 POC ABG pO2 Sodium Potassium Chloride Carbon Dioxide BUN Creatinine Glucose POC Glucose 184 H 124 H 153 H Lactic Acid Uric Acid Calcium Phosphorus Iron TIBC Erythropoietin Ferritin Total Bilirubin Direct Bilirubin AST ALT Alkaline Phosphatase Lactate Dehydrogenase C-Reactive Protein Serum Total Protein Total Protein Albumin Udvwl-9-Ktmohshha Abnorm Protein Band 1 PEP Interpretation Crossmatch 10/29/16 10/29/16 10/29/16 06:15 06:15 10:58 WBC 14.1 H RBC 3.15 L Hgb 9.6 L Hct 29.1 L MCV MCHC RDW 17.9 H Plt Count 73 L Seg Neuts % (Manual) 93.0 H Lymphocytes % (Manual) 4.0 L Nucleated RBC % Seg Neutrophils # Man 13.1 H Lymphocytes # (Manual) 0.6 L Haptoglobin PT INR Fibrinogen Lupus Anticoagulant LA PTT Baseline POC ABG pH POC ABG pCO2 POC ABG pO2 Sodium Potassium Chloride Carbon Dioxide BUN 58 H Creatinine 2.7 H Glucose 146 H POC Glucose 134 H Lactic Acid Uric Acid Calcium 7.4 L Phosphorus 5.00 H Iron TIBC Erythropoietin Ferritin Total Bilirubin Direct Bilirubin AST ALT Alkaline Phosphatase Lactate Dehydrogenase C-Reactive Protein Serum Total Protein Total Protein Albumin Nypaf-6-Ezibyebem Abnorm Protein Band 1 PEP Interpretation Crossmatch 10/29/16 10/29/16 10/30/16 17:06 23:28 05:16 WBC RBC Hgb Hct MCV MCHC RDW Plt Count Seg Neuts % (Manual) Lymphocytes % (Manual) Nucleated RBC % Seg Neutrophils # Man Lymphocytes # (Manual) Haptoglobin PT INR Fibrinogen Lupus Anticoagulant LA PTT Baseline POC ABG pH POC ABG pCO2 POC ABG pO2 Sodium Potassium Chloride Carbon Dioxide BUN Creatinine Glucose POC Glucose 158 H 133 H 147 H Lactic Acid Uric Acid Calcium Phosphorus Iron TIBC Erythropoietin Ferritin Total Bilirubin Direct Bilirubin AST ALT Alkaline Phosphatase Lactate Dehydrogenase C-Reactive Protein Serum Total Protein Total Protein Albumin Xmaeo-4-Exdrhsgds Abnorm Protein Band 1 PEP Interpretation Crossmatch 10/30/16 10/30/16 10/30/16 06:35 06:35 12:08 WBC 13.0 H RBC 3.08 L Hgb 9.3 L Hct 28.7 L MCV MCHC RDW 18.4 H Plt Count 73 L Seg Neuts % (Manual) Lymphocytes % (Manual) Nucleated RBC % Seg Neutrophils # Man Lymphocytes # (Manual) Haptoglobin PT INR Fibrinogen Lupus Anticoagulant LA PTT Baseline POC ABG pH POC ABG pCO2 POC ABG pO2 Sodium Potassium Chloride Carbon Dioxide BUN 86 H Creatinine 3.5 H Glucose 132 H POC Glucose 134 H Lactic Acid Uric Acid Calcium 7.1 L Phosphorus 5.90 H Iron TIBC Erythropoietin Ferritin Total Bilirubin Direct Bilirubin AST ALT Alkaline Phosphatase Lactate Dehydrogenase C-Reactive Protein Serum Total Protein Total Protein Albumin Pwggs-4-Ijdymxfmm Abnorm Protein Band 1 PEP Interpretation Crossmatch 10/30/16 10/30/1617 18:02 23:31 05:21 WBC RBC Hgb Hct MCV MCHC RDW Plt Count Seg Neuts % (Manual) Lymphocytes % (Manual) Nucleated RBC % Seg Neutrophils # Man Lymphocytes # (Manual) Haptoglobin PT INR Fibrinogen Lupus Anticoagulant LA PTT Baseline POC ABG pH POC ABG pCO2 POC ABG pO2 Sodium Potassium Chloride Carbon Dioxide BUN Creatinine Glucose POC Glucose 142 H 152 H 152 H Lactic Acid Uric Acid Calcium Phosphorus Iron TIBC Erythropoietin Ferritin Total Bilirubin Direct Bilirubin AST ALT Alkaline Phosphatase Lactate Dehydrogenase C-Reactive Protein Serum Total Protein Total Protein Albumin Agtti-1-Fnzaabyyc Abnorm Protein Band 1 PEP Interpretation Crossmatch 10/31/16 10/31/16 06:21 06:21 WBC 11.9 H RBC 2.82 L Hgb 8.6 L Hct 26.4 L MCV MCHC RDW 17.8 H Plt Count 56 L Seg Neuts % (Manual) Lymphocytes % (Manual) 0 L Nucleated RBC % Seg Neutrophils # Man 10.9 H Lymphocytes # (Manual) 0.0 L Haptoglobin PT INR Fibrinogen Lupus Anticoagulant LA PTT Baseline POC ABG pH POC ABG pCO2 POC ABG pO2 Sodium Potassium Chloride Carbon Dioxide 21 L BUN 107 H Creatinine 4.2 H Glucose 137 H POC Glucose Lactic Acid Uric Acid Calcium 7.2 L Phosphorus 6.50 H Iron TIBC Erythropoietin Ferritin Total Bilirubin Direct Bilirubin AST ALT Alkaline Phosphatase Lactate Dehydrogenase C-Reactive Protein Serum Total Protein Total Protein Albumin Mnfxo-5-Lzbmajowc Abnorm Protein Band 1 PEP Interpretation Crossmatch Allied health notes reviewed: RT
--- NOTE | 2016-10-31 12:04 | Progress Note ---
Assessment and Plan Consent done. office to schedule. Will need correction of the INR to less than 1.5. Continue supportive care. Will follow. Subjective Date of service: 10/31/16 Patient Reports: Positive: other (no acute events. Family consented for sx) Objective Vital Signs - 12hr 10/31/16 10/31/16 10/31/16 00:30 01:00 01:30 Temperature Pulse Rate 79 76 77 Pulse Rate [ From Monitor] Pulse Rate [ Left Dorsalis Pedis] Pulse Rate [ Left Radial] Pulse Rate [ Right Dorsalis Pedis] Pulse Rate [ Right Radial] Respiratory 22 18 20 Rate Blood Pressure 101/69 93/65 93/65 O2 Sat by Pulse 99 99 99 Oximetry 10/31/16 10/31/16 10/31/16 02:00 02:30 03:00 Temperature Pulse Rate 79 82 81 Pulse Rate [ From Monitor] Pulse Rate [ Left Dorsalis Pedis] Pulse Rate [ Left Radial] Pulse Rate [ Right Dorsalis Pedis] Pulse Rate [ Right Radial] Respiratory 21 24 21 Rate Blood Pressure 98/67 98/67 105/73 O2 Sat by Pulse 99 99 98 Oximetry 10/31/16 10/31/16 10/31/16 03:12 03:30 04:00 Temperature 99.0 F Pulse Rate 80 79 Pulse Rate [ 75 From Monitor] Pulse Rate [ 75 Left Dorsalis Pedis] Pulse Rate [ 75 Left Radial] Pulse Rate [ 75 Right Dorsalis Pedis] Pulse Rate [ 75 Right Radial] Respiratory 22 20 Rate Blood Pressure 105/73 105/73 O2 Sat by Pulse 99 99 Oximetry 10/31/16 10/31/16 10/31/16 04:30 05:00 05:30 Temperature Pulse Rate 81 81 80 Pulse Rate [ From Monitor] Pulse Rate [ Left Dorsalis Pedis] Pulse Rate [ Left Radial] Pulse Rate [ Right Dorsalis Pedis] Pulse Rate [ Right Radial] Respiratory 20 22 23 Rate Blood Pressure 105/73 105/74 105/74 O2 Sat by Pulse 98 98 99 Oximetry 10/31/16 10/31/16 10/31/16 06:00 06:30 07:00 Temperature Pulse Rate 90 79 87 Pulse Rate [ From Monitor] Pulse Rate [ Left Dorsalis Pedis] Pulse Rate [ Left Radial] Pulse Rate [ Right Dorsalis Pedis] Pulse Rate [ Right Radial] Respiratory 27 H 20 25 H Rate Blood Pressure 107/75 114/78 118/85 O2 Sat by Pulse 97 98 96 Oximetry 10/31/16 10/31/16 10/31/16 07:30 07:32 08:00 Temperature 99.3 F Pulse Rate 85 86 69 Pulse Rate [ From Monitor] Pulse Rate [ Left Dorsalis Pedis] Pulse Rate [ Left Radial] Pulse Rate [ Right Dorsalis Pedis] Pulse Rate [ Right Radial] Respiratory 25 H 25 H 25 H Rate Blood Pressure 118/85 118/85 125/86 O2 Sat by Pulse 98 98 98 Oximetry 10/31/16 10/31/16 10/31/16 08:30 09:00 09:26 Temperature Pulse Rate 85 86 85 Pulse Rate [ From Monitor] Pulse Rate [ Left Dorsalis Pedis] Pulse Rate [ Left Radial] Pulse Rate [ Right Dorsalis Pedis] Pulse Rate [ Right Radial] Respiratory 26 H 23 Rate Blood Pressure 125/86 114/78 114/78 O2 Sat by Pulse 97 Oximetry 10/31/16 10/31/16 10/31/16 09:30 10:00 10:30 Temperature Pulse Rate 86 76 79 Pulse Rate [ From Monitor] Pulse Rate [ Left Dorsalis Pedis] Pulse Rate [ Left Radial] Pulse Rate [ Right Dorsalis Pedis] Pulse Rate [ Right Radial] Respiratory 26 H 21 24 Rate Blood Pressure 114/78 91/62 91/62 O2 Sat by Pulse 97 97 98 Oximetry 10/31/16 10/31/16 10/31/16 11:00 11:30 11:45 Temperature Pulse Rate 81 86 82 Pulse Rate [ From Monitor] Pulse Rate [ Left Dorsalis Pedis] Pulse Rate [ Left Radial] Pulse Rate [ Right Dorsalis Pedis] Pulse Rate [ Right Radial] Respiratory 25 H Rate Blood Pressure 100/70 111/80 93/68 O2 Sat by Pulse 97 Oximetry - General physical appearance no distress - Respiratory normal respiratory effort (on vent) - Abdomen soft - Neurologic other (sed and int) - Labs 10/31/16 06:21 10/31/16 06:21 Diabetes panel 10/31/16 Range/Units 06:21 Sodium 140 (137-145) mmol/L Potassium 4.4 (3.6-5.0) mmol/L Chloride 100.2 (98-107) mmol/L Carbon Dioxide 21 L (22-30) mmol/L BUN 107 H (9-20) mg/dL Creatinine 4.2 H (0.8-1.5) mg/dL Glucose 137 H (75-100) mg/dL Calcium 7.2 L (8.4-10.2) mg/dL Calcium panel 10/31/16 Range/Units 06:21 Calcium 7.2 L (8.4-10.2) mg/dL Phosphorus 6.50 H (2.5-4.5) mg/dL Pituitary panel 10/31/16 Range/Units 06:21 Sodium 140 (137-145) mmol/L Potassium 4.4 (3.6-5.0) mmol/L Chloride 100.2 (98-107) mmol/L Carbon Dioxide 21 L (22-30) mmol/L BUN 107 H (9-20) mg/dL Creatinine 4.2 H (0.8-1.5) mg/dL Glucose 137 H (75-100) mg/dL Calcium 7.2 L (8.4-10.2) mg/dL Adrenal panel 10/31/16 Range/Units 06:21 Sodium 140 (137-145) mmol/L Potassium 4.4 (3.6-5.0) mmol/L Chloride 100.2 (98-107) mmol/L Carbon Dioxide 21 L (22-30) mmol/L BUN 107 H (9-20) mg/dL Creatinine 4.2 H (0.8-1.5) mg/dL Glucose 137 H (75-100) mg/dL Calcium 7.2 L (8.4-10.2) mg/dL
--- NOTE | 2016-10-31 12:23 | Progress Note ---
Assessment and Plan (1) Renal failure Current Visit: Yes Status: Acute Qualifiers: Renal failure chronicity: acute Acute renal failure type: unspecified Chronic kidney disease stage: C Qualified Code(s): N17.9 - Acute kidney failure, unspecified Plan to address problem: HD today clearance and volume removal will asses dialysis needs daily and monitor renal recovery closely Strict I/O monitoring Avoid Nephrotoxic agents Renally dose medications Obtain daily weights Monitor renal function daily (2) Acute respiratory failure Current Visit: Yes Status: Acute Qualifiers: Respiratory failure complication: hypoxia Qualified Code(s): J96.01 - Acute respiratory failure with hypoxia Plan to address problem: Intubated as per Pulmonary, possible need for trach (3) Anemia Current Visit: Yes Status: Acute Qualifiers: Anemia type: unspecified type Iron deficiency anemia type: I Vitamin B12 deficiency anemia type: V Folate deficiency anemia type: F Bone marrow failure anemia type: B Hemolytic anemia type: H Other causes of anemia: O Qualified Code(s): D64.9 - Anemia, unspecified Plan to address problem: Monitor labs and transfuse as needed Hematology onboard (4) Thrombocytopenia Current Visit: Yes Status: Acute Plan to address problem: [id number] is pending Hematology onboard (5) Atrial fibrillation Current Visit: Yes Status: Acute Qualifiers: Atrial fibrillation type: A Plan to address problem: followed by cardiology, on BB Subjective Date of service: 10/31/16 Principal diagnosis: Sepsis Syndrome; MAHA; RAJESH; CHF; TTP Interval history: seen during HD, tolerating, his daughter was at bedside, all questions answered Objective - Vital Signs Vital signs: Vital Signs - 12hr 10/31/16 10/31/16 10/31/16 00:30 01:00 01:30 Temperature Pulse Rate 79 76 77 Pulse Rate [ From Monitor] Pulse Rate [ Left Dorsalis Pedis] Pulse Rate [ Left Radial] Pulse Rate [ Right Dorsalis Pedis] Pulse Rate [ Right Radial] Respiratory 22 18 20 Rate Blood Pressure 101/69 93/65 93/65 O2 Sat by Pulse 99 99 99 Oximetry O2 Sat by Pulse Oximetry [ Anterior Bilateral Throughout] 10/31/16 10/31/16 10/31/16 02:00 02:30 03:00 Temperature Pulse Rate 79 82 81 Pulse Rate [ From Monitor] Pulse Rate [ Left Dorsalis Pedis] Pulse Rate [ Left Radial] Pulse Rate [ Right Dorsalis Pedis] Pulse Rate [ Right Radial] Respiratory 21 24 21 Rate Blood Pressure 98/67 98/67 105/73 O2 Sat by Pulse 99 99 98 Oximetry O2 Sat by Pulse Oximetry [ Anterior Bilateral Throughout] 10/31/16 10/31/16 10/31/16 03:12 03:30 04:00 Temperature 99.0 F Pulse Rate 80 79 Pulse Rate [ 75 From Monitor] Pulse Rate [ 75 Left Dorsalis Pedis] Pulse Rate [ 75 Left Radial] Pulse Rate [ 75 Right Dorsalis Pedis] Pulse Rate [ 75 Right Radial] Respiratory 22 20 Rate Blood Pressure 105/73 105/73 O2 Sat by Pulse 99 99 Oximetry O2 Sat by Pulse Oximetry [ Anterior Bilateral Throughout] 10/31/16 10/31/16 10/31/16 04:30 05:00 05:30 Temperature Pulse Rate 81 81 80 Pulse Rate [ From Monitor] Pulse Rate [ Left Dorsalis Pedis] Pulse Rate [ Left Radial] Pulse Rate [ Right Dorsalis Pedis] Pulse Rate [ Right Radial] Respiratory 20 22 23 Rate Blood Pressure 105/73 105/74 105/74 O2 Sat by Pulse 98 98 99 Oximetry O2 Sat by Pulse Oximetry [ Anterior Bilateral Throughout] 10/31/16 10/31/16 10/31/16 06:00 06:30 07:00 Temperature Pulse Rate 90 79 87 Pulse Rate [ From Monitor] Pulse Rate [ Left Dorsalis Pedis] Pulse Rate [ Left Radial] Pulse Rate [ Right Dorsalis Pedis] Pulse Rate [ Right Radial] Respiratory 27 H 20 25 H Rate Blood Pressure 107/75 114/78 118/85 O2 Sat by Pulse 97 98 96 Oximetry O2 Sat by Pulse Oximetry [ Anterior Bilateral Throughout] 10/31/16 10/31/16 10/31/16 07:30 07:32 08:00 Temperature 99.3 F Pulse Rate 85 86 69 Pulse Rate [ From Monitor] Pulse Rate [ Left Dorsalis Pedis] Pulse Rate [ Left Radial] Pulse Rate [ Right Dorsalis Pedis] Pulse Rate [ Right Radial] Respiratory 25 H 25 H 25 H Rate Blood Pressure 118/85 118/85 125/86 O2 Sat by Pulse 98 98 98 Oximetry O2 Sat by Pulse Oximetry [ Anterior Bilateral Throughout] 10/31/16 10/31/16 10/31/16 08:30 09:00 09:26 Temperature Pulse Rate 85 86 85 Pulse Rate [ From Monitor] Pulse Rate [ Left Dorsalis Pedis] Pulse Rate [ Left Radial] Pulse Rate [ Right Dorsalis Pedis] Pulse Rate [ Right Radial] Respiratory 26 H 23 Rate Blood Pressure 125/86 114/78 114/78 O2 Sat by Pulse 97 Oximetry O2 Sat by Pulse Oximetry [ Anterior Bilateral Throughout] 10/31/16 10/31/16 10/31/16 09:30 10:00 10:30 Temperature Pulse Rate 86 76 79 Pulse Rate [ From Monitor] Pulse Rate [ Left Dorsalis Pedis] Pulse Rate [ Left Radial] Pulse Rate [ Right Dorsalis Pedis] Pulse Rate [ Right Radial] Respiratory 26 H 21 24 Rate Blood Pressure 114/78 91/62 91/62 O2 Sat by Pulse 97 97 98 Oximetry O2 Sat by Pulse Oximetry [ Anterior Bilateral Throughout] 10/31/16 10/31/16 10/31/16 11:00 11:25 11:30 Temperature 98.7 F Pulse Rate 81 86 86 Pulse Rate [ From Monitor] Pulse Rate [ Left Dorsalis Pedis] Pulse Rate [ Left Radial] Pulse Rate [ Right Dorsalis Pedis] Pulse Rate [ Right Radial] Respiratory 25 H 18 Rate Blood Pressure 100/70 111/80 111/80 O2 Sat by Pulse 97 Oximetry O2 Sat by Pulse 99 Oximetry [ Anterior Bilateral Throughout] 10/31/16 10/31/16 11:45 12:00 Temperature Pulse Rate 82 81 Pulse Rate [ From Monitor] Pulse Rate [ Left Dorsalis Pedis] Pulse Rate [ Left Radial] Pulse Rate [ Right Dorsalis Pedis] Pulse Rate [ Right Radial] Respiratory Rate Blood Pressure 93/68 93/64 O2 Sat by Pulse Oximetry O2 Sat by Pulse Oximetry [ Anterior Bilateral Throughout] - General Appearance General appearance: intubated EENT: mucous membranes dry Neck: no JVD Respiratory: Present: Decreased Breath Sounds Cardiology: irregular Gastrointestinal: normoactive bowel sounds Integumentary: warm and dry Neurologic: other (does not follow commands) Psychiatric: other (does not answer questions) - Lab 10/31/16 06:21 10/31/16 06:21 Most recent lab results Calcium 7.2 mg/dL (8.4-10.2) L 10/31/16 06:21 Phosphorus 6.50 mg/dL (2.5-4.5) H 10/31/16 06:21
[2016-10-31] MEDS ORDERED: IMODIUM FEEDTUBE PRN (12:30)
[2016-10-31] MEDS ORDERED: VITAMIN K (ADULT ONLY) SUB-Q STA (12:40)
[2016-10-31] MEDS: VITAMIN K (ADULT ONLY) SUB-Q SCH ×2 (12:58→20:34)
[2016-10-31] MEDS ORDERED: PANCREAZE DR 10,500 UNIT FEEDTUBE PRN (15:38)
[2016-10-31] MEDS ORDERED: SODIUM BICARBONATE FEEDTUBE PRN (15:38)
[2016-10-31] MEDS ORDERED: SIMPLE SYRUP FEEDTUBE PRN ×2 (15:38)
[2016-10-31] MEDS: IMODIUM A-D PO PRN ×2 (16:32→18:28)
--- NOTE | 2016-10-31 21:41 | Consultation ---
History of Present Illness - Reason for Consult Consult date: 10/31/16 - History of Present Illness patient seen/examined, resting in bed, Non responsive., labs reviewed. I have spoken to hematology, it seems that the ordered , one on 10/19/16 is still pending result. Past History Past Medical History: hypertension, other (Had shingles in November 25-) Past Surgical History: No surgical history Social history: , full code, other (Patienti s and lives with his ). denies: smoking, alcohol abuse, prescription drug abuse, IV drug use Family history: no significant family history Medications and Allergies Allergies Allergy/AdvReac Type Severity Reaction Status Date / Time No Known Allergies Allergy Unverified 10/13/16 09:41 Home Medications Medication Instructions Recorded Confirmed Last Taken Type Naproxen Sodium [Aleve TAB] 2 tab PO Q8H PRN 10/13/16 10/13/16 10/12/16 14:00 History Active Meds: Active Medications Acetaminophen (Tylenol) 1,000 mg IL Q4H PRN PRN Reason: Pain, Mild (1-3) Last Admin: 10/20/16 15:40 Dose: 1,000 mg Acetaminophen (Tylenol) 650 mg FEEDTUBE Q6H PRN PRN Reason: Pain, Mild (1-3) Last Admin: 10/24/16 10:56 Dose: 650 mg Lipase/Protease/Amylase (Pancreaze Dr 10,500 Unit) 1 each FEEDTUBE PRN PRN PRN Reason: For Clogged Feeding Tube Dextrose (D50w (25gm)) 25 ml IV PRN PRN PRN Reason: Hypoglycemia Last Admin: 10/18/16 07:20 Dose: 25 ml Diphenhydramine HCl (Benadryl) 50 mg IV Q6H PRN PRN Reason: Itching Last Admin: 10/24/16 10:57 Dose: 50 mg Famotidine (Pepcid) 20 mg PO Q24H EDWINA Last Admin: 10/31/16 09:29 Dose: 20 mg Haloperidol Lactate (Haldol) 5 mg IM Q6H PRN PRN Reason: Agitation Last Admin: 10/14/16 21:11 Dose: 5 mg Heparin Sodium (Porcine) (Heparin) 10,000 unit IV ROD PRN PRN Reason: for plasmapheresis- vascath Last Admin: 10/25/16 15:40 Dose: 10,000 unit Hydrocortisone Sodium Succinate (Solu-Cortef) 60 mg IV Q8HR [facility] Last Admin: 10/31/16 14:30 Dose: 60 mg Hydrophilic Ointment (Vaseline Lip Therapy) 1 applic TP Q2H PRN PRN Reason: Dry Lips Sodium Chloride (Nacl 0.9%) 100 mls @ 999 mls/hr IV ROD PRN PRN Reason: Hypotension Propofol (Diprivan 10 Mg/Ml) 1,000 mg in 100 mls @ 1.827 mls/hr IV TITR EDWINA; 5 MCG/KG/MIN PRN Reason: Protocol Last Titration: 10/20/16 10:12 Dose: 0 mcg/kg/min, 0 mls/hr Fentanyl Citrate (Fentanyl Drip Premix) 2,000 mcg in 100 mls @ 3.045 mls/hr IV TITR EDWINA; 1 MCG/KG/HR PRN Reason: Protocol Insulin Aspart (Novolog) 0 units SUB-Q Q6HR EDWINA PRN Reason: Protocol Last Admin: 10/31/16 18:30 Dose: 3 units Labetalol HCl (Normodyne) 20 mg IV Q6H PRN PRN Reason: Hypertension Last Admin: 10/25/16 05:33 Dose: 20 mg Loperamide HCl (Imodium A-D) 2 mg PO Q2H PRN PRN Reason: Diarrhea Last Admin: 10/31/16 18:28 Dose: 2 mg Metoprolol Tartrate (Lopressor) 25 mg PO BID [facility] Last Admin: 10/31/16 09:26 Dose: 25 mg Metronidazole (Flagyl) 500 mg FEEDTUBE Q8H [facility] Last Admin: 10/31/16 20:34 Dose: 500 mg Multi-Ingred Cream/Lotion/Oil/Oint (Artificial Tears Ophth Oint) 1 applic OU Q4H PRN PRN Reason: Dry Eye(s) Ondansetron HCl (Zofran) 4 mg IV Q8H PRN PRN Reason: Nausea And Vomiting Phytonadione (Vitamin K (Adult Only)) 10 mg SUB-Q Q8H [facility] Stop: 11/01/16 05:01 Last Admin: 10/31/16 20:34 Dose: 10 mg Simple Syrup (Simple Syrup) 15 ml FEEDTUBE PRN PRN PRN Reason: Hypoglycemia Simple Syrup (Simple Syrup) 30 ml FEEDTUBE PRN PRN PRN Reason: Hypoglycemia Sodium Bicarbonate (Sodium Bicarbonate) 325 mg FEEDTUBE PRN PRN PRN Reason: For Clogged Feeding Tube Sodium Chloride (Sodium Chloride Flush Syringe 10 Ml) 10 ml IV PRN PRN PRN Reason: LINE FLUSH Last Admin: 10/17/16 20:45 Dose: 10 ml Vancomycin HCl (Vancomycin Pharmacy To Dose) 1 each IV PKCONSULT EDWINA PRN Reason: Protocol Review of Systems Constitutional: other (non responsive.) Exam - Constitutional Vitals: Temp Pulse Resp BP Pulse Ox 99.5 F 89 22 116/82 98 10/31/16 20:00 10/31/16 20:30 10/31/16 20:30 10/31/16 20:30 10/31/16 20:30 General appearance: Present: severe distress - EENT Eyes: Present: PERRL ENT: hearing intact, clear oral mucosa - Neck Neck: Present: supple, normal ROM - Respiratory Respiratory: bilateral: CTA - Cardiovascular Heart Sounds: Present: S1 & S2. Absent: rub, click - Extremities Extremities: pulses symmetrical, No edema Peripheral Pulses: within normal limits - Abdominal General gastrointestinal: Present: soft, non-tender, non-distended, normal bowel sounds Male genitourinary: Present: deferred - Rectal Rectal Exam: deferred - Integumentary Integumentary: Present: clear, warm, dry Results - Labs CBC & Chem 7: 10/31/16 06:21 10/31/16 06:21 Labs: Abnormal lab results 10/30/16 10/31/16 10/31/16 Range/Units 23:31 05:21 06:21 WBC 11.9 H (4.5-11.0) K/mm3 RBC 2.82 L (3.65-5.03) M/mm3 Hgb 8.6 L (11.8-15.2) gm/dl Hct 26.4 L (35.5-45.6) % RDW 17.8 H (13.2-15.2) % Plt Count 56 L (140-440) K/mm3 Lymphocytes % (Manual) 0 L (13.4-35.0) % Seg Neutrophils # Man 10.9 H (1.8-7.7) K/mm3 Lymphocytes # (Manual) 0.0 L (1.2-5.4) K/mm3 Carbon Dioxide (22-30) mmol/L BUN (9-20) mg/dL Creatinine (0.8-1.5) mg/dL Glucose (75-100) mg/dL POC Glucose 152 H 152 H (70-105) Calcium (8.4-10.2) mg/dL Phosphorus (2.5-4.5) mg/dL 10/31/16 10/31/16 Range/Units 06:21 17:34 WBC (4.5-11.0) K/mm3 RBC (3.65-5.03) M/mm3 Hgb (11.8-15.2) gm/dl Hct (35.5-45.6) % RDW (13.2-15.2) % Plt Count (140-440) K/mm3 Lymphocytes % (Manual) (13.4-35.0) % Seg Neutrophils # Man (1.8-7.7) K/mm3 Lymphocytes # (Manual) (1.2-5.4) K/mm3 Carbon Dioxide 21 L (22-30) mmol/L BUN 107 H (9-20) mg/dL Creatinine 4.2 H (0.8-1.5) mg/dL Glucose 137 H (75-100) mg/dL POC Glucose 180 H (70-105) Calcium 7.2 L (8.4-10.2) mg/dL Phosphorus 6.50 H (2.5-4.5) mg/dL Assessment and Plan - Patient Problems (1) Anemia Current Visit: Yes Status: Acute Qualifiers: Anemia type: unspecified type Iron deficiency anemia type: I Vitamin B12 deficiency anemia type: V Folate deficiency anemia type: F Bone marrow failure anemia type: B Hemolytic anemia type: H Other causes of anemia: O Qualified Code(s): D64.9 - Anemia, unspecified Plan to address problem: post transfusion. remains stable. (2) Leucopenia Current Visit: Yes Status: Acute Qualifiers: Leukopenia type: unspecified Neutropenia type: N Qualified Code(s): D72.819 - Decreased white blood cell count, unspecified Plan to address problem: same as above. resolved. Same as above (3) Renal failure Current Visit: Yes Status: Acute Qualifiers: Renal failure chronicity: acute Acute renal failure type: unspecified Chronic kidney disease stage: C Qualified Code(s): N17.9 - Acute kidney failure, unspecified Plan to address problem: See w/up, and renal service. see notes Follow national recruiter.
[2016-11-01] MEDS: NOVOLOG SUB-Q SCH ×2 (00:04→06:15)
[2016-11-01] MEDS: FLAGYL FEEDTUBE SCH (04:41)
[2016-11-01] MEDS: VITAMIN K (ADULT ONLY) SUB-Q SCH ×3 (04:45→22:42)
[2016-11-01 06:45] LABS: Hematocrit 24.8 % (35.5-45.6); Hemoglobin 8.1 gm/dl (11.8-15.2); Mean Corpuscular HGB Conc 33 % (32-34); Mean Corpuscular Hemoglobin 30 pg (28-32); Mean Corpuscular Volume 93 fl (84-94); Red Blood Count 2.66 M/mm3 (3.65-5.03); Red Cell Distribution Width 17.7 % (13.2-15.2); White Blood Count 8.4 K/mm3 (4.5-11.0)
[2016-11-01 06:57] LABS: BUN/Creatinine Ratio 25.71; Calcium 7.1 mg/dL (8.4-10.2); Chloride 95.6 mmol/L (98-107); Phosphorous 5.5 mg/dL (2.5-4.5); Potassium 4.3 mmol/L (3.6-5.0)
--- NOTE | 2016-11-01 10:13 | Progress Note ---
Assessment and Plan (1) Renal failure Current Visit: Yes Status: Acute Qualifiers: Renal failure chronicity: acute Acute renal failure type: unspecified Chronic kidney disease stage: C Qualified Code(s): N17.9 - Acute kidney failure, unspecified Plan to address problem: HD again today for clearance only will asses dialysis needs daily and monitor renal recovery closely. currently anuric Strict I/O monitoring Avoid Nephrotoxic agents Renally dose medications Obtain daily weights Monitor renal function daily (2) Acute respiratory failure Current Visit: Yes Status: Acute Qualifiers: Respiratory failure complication: hypoxia Qualified Code(s): J96.01 - Acute respiratory failure with hypoxia Plan to address problem: Intubated as per Pulmonary, possible need for trach (3) Anemia Current Visit: Yes Status: Acute Qualifiers: Anemia type: unspecified type Iron deficiency anemia type: I Vitamin B12 deficiency anemia type: V Folate deficiency anemia type: F Bone marrow failure anemia type: B Hemolytic anemia type: H Other causes of anemia: O Qualified Code(s): D64.9 - Anemia, unspecified Plan to address problem: Monitor labs and transfuse as needed Hematology onboard (4) Thrombocytopenia Current Visit: Yes Status: Acute Plan to address problem: Hematology onboard (5) Atrial fibrillation Current Visit: Yes Status: Acute Qualifiers: Atrial fibrillation type: A Plan to address problem: followed by cardiology, on BB Subjective Date of service: 11/01/16 Principal diagnosis: Sepsis Syndrome; MAHA; RAJESH; CHF; TTP Interval history: intubated, does not follow commands Objective - Vital Signs Vital signs: Vital Signs - 12hr 10/31/16 11/01/16 11/01/16 23:00 00:00 00:02 Temperature Pulse Rate 77 78 78 Pulse Rate [ From Monitor] Respiratory 18 18 18 Rate Blood Pressure 87/61 95/69 95/69 O2 Sat by Pulse 99 99 99 Oximetry 11/01/16 11/01/16 11/01/16 00:07 00:09 00:15 Temperature 97.6 F Pulse Rate 78 Pulse Rate [ 78 From Monitor] Respiratory 18 Rate Blood Pressure O2 Sat by Pulse Oximetry 11/01/16 11/01/16 11/01/16 00:32 00:37 01:00 Temperature 97.6 F Pulse Rate 79 77 Pulse Rate [ From Monitor] Respiratory 18 Rate Blood Pressure 95/69 94/67 O2 Sat by Pulse 99 99 Oximetry 11/01/16 11/01/16 11/01/16 02:00 03:00 04:00 Temperature 99.2 F Pulse Rate 77 77 77 Pulse Rate [ From Monitor] Respiratory 18 18 18 Rate Blood Pressure 90/64 94/65 91/64 O2 Sat by Pulse 98 99 99 Oximetry 11/01/16 11/01/16 11/01/16 04:30 04:51 05:00 Temperature Pulse Rate 81 76 Pulse Rate [ 81 From Monitor] Respiratory 18 18 Rate Blood Pressure 91/64 94/64 O2 Sat by Pulse 99 100 98 Oximetry 11/01/16 11/01/16 11/01/16 06:00 08:00 08:09 Temperature 98.7 F Pulse Rate 75 77 81 Pulse Rate [ From Monitor] Respiratory 18 23 Rate Blood Pressure 91/64 99/69 108/77 O2 Sat by Pulse 99 99 99 Oximetry - General Appearance General appearance: intubated EENT: ATNC, mucous membranes dry Neck: no JVD Respiratory: Present: Decreased Breath Sounds Cardiology: irregular Gastrointestinal: normal, no tenderness, no distended Integumentary: no rash, warm and dry Neurologic: other (does not follow commands) Musculoskeletal: other (trace pitting edema in BLE) Psychiatric: other (does not answer questions) - Lab 11/01/16 06:00 11/01/16 06:00 Most recent lab results Calcium 7.1 mg/dL (8.4-10.2) L 11/01/16 06:00 Phosphorus 5.50 mg/dL (2.5-4.5) H 11/01/16 06:00
--- NOTE | 2016-11-01 10:28 | Progress Note ---
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) - continue HD/UF per nephrology recs - follow I's and O's (no urine in do bag) - correct electrolytes prn - avoid nephrotoxins - per nephrology otherwise (3) Metabolic acidosis Current Visit: Yes Status: Acute Plan to address problem: - mixed etiology - Lactic Acidosis component resolved - sepsis may have been driving force for that - RAJESH component - continue HD/UF per nephrology prescription - Anti-infectives per ID recs (4) CHF (congestive heart failure) Current Visit: Yes Status: Acute Qualifiers: Congestive heart failure type: C Congestive heart failure chronicity: C Plan to address problem: - ECHO consistent with possible infiltrating disease - cardiology consulted - EF 30& - s/p volume resuscitation for sepsis - per cardiology otherwise - JONATHAN negative (5) Pancytopenia Current Visit: Yes Status: Acute Plan to address problem: - hematology on case - continuing plasmapheresis - may need bone marrow evaluation - follow platelet count (6) Acute encephalopathy Current Visit: Yes Status: Acute Plan to address problem: - CT brain negative - likely toxic-metabolic encephalopathy - MRI abnormal - neurology evaluation ongoing - following clinically (7) Hypoglycemia Current Visit: Yes Status: Acute Plan to address problem: - improved - suspect sepsis related element - will continue systemic steroids but taper - also continue enteral nutrition - glycemic control via SSI at this point (8) Sepsis syndrome Current Visit: Yes Status: Acute Plan to address problem: - s/p antibiotic course - ID on case - CRP and lactate much improved - JONATHAN negative - following clinically - c-diff assay negative - Anti-infectives per ID recs (9) Discharge planning issues Current Visit: Yes Status: Acute Plan to address problem: - he remains critically ill on life sustaining interventions including MVS and at risk for further deterioration including ...30' CCT Subjective Date of service: 11/01/16 Principal diagnosis: Sepsis Syndrome; MAHA; RAJESH; CHF; TTP Interval history: Seen and examined at bedside; 24 hour events reviewed; nursing and respiratory care staff consulted; no adverse overnight events reported to me; AMS is persistent; tolerating HD/UF well so far; no gross bleeding and tolerating tube feeds Objective Vital Signs - 12hr 10/31/16 11/01/16 11/01/16 23:00 00:00 00:02 Temperature Pulse Rate 77 78 78 Pulse Rate [ From Monitor] Respiratory 18 18 18 Rate Blood Pressure 87/61 95/69 95/69 O2 Sat by Pulse 99 99 99 Oximetry 11/01/16 11/01/16 11/01/16 00:07 00:09 00:15 Temperature 97.6 F Pulse Rate 78 Pulse Rate [ 78 From Monitor] Respiratory 18 Rate Blood Pressure O2 Sat by Pulse Oximetry 11/01/16 11/01/16 11/01/16 00:32 00:37 01:00 Temperature 97.6 F Pulse Rate 79 77 Pulse Rate [ From Monitor] Respiratory 18 Rate Blood Pressure 95/69 94/67 O2 Sat by Pulse 99 99 Oximetry 11/01/16 11/01/16 11/01/16 02:00 03:00 04:00 Temperature 99.2 F Pulse Rate 77 77 77 Pulse Rate [ From Monitor] Respiratory 18 18 18 Rate Blood Pressure 90/64 94/65 91/64 O2 Sat by Pulse 98 99 99 Oximetry 11/01/16 11/01/16 11/01/16 04:30 04:51 05:00 Temperature Pulse Rate 81 76 Pulse Rate [ 81 From Monitor] Respiratory 18 18 Rate Blood Pressure 91/64 94/64 O2 Sat by Pulse 99 100 98 Oximetry 11/01/16 11/01/16 11/01/16 06:00 08:00 08:09 Temperature 98.7 F Pulse Rate 75 77 81 Pulse Rate [ From Monitor] Respiratory 18 23 Rate Blood Pressure 91/64 99/69 108/77 O2 Sat by Pulse 99 99 99 Oximetry Constitutional: no acute distress, other (encephalopathic) Eyes: non-icteric ENT: oropharynx moist Neck: supple, no lymphadenopathy Effort: normal Ascultation: Bilateral: clear, diminished breath sounds Cardiovascular: irregular rhythm Gastrointestinal: normoactive bowel sounds, soft, non-tender, non-distended Integumentary: normal Extremities: no cyanosis, pulses normal, no ischemia or petechiae, edema Neurologic: non-focal exam (grossly), pupils equal and round, unable to assess Psychiatric: other (unable to assess) CBC and BMP: 11/02/16 10:00 11/02/16 05:15 ABG, PT/INR, D-dimer: ABG POC ABG pH 7.410 (7.35-7.45) 10/28/16 12:51 POC ABG pCO2 37.8 (35-45) 10/28/16 12:51 POC ABG pO2 93 (80-105) 10/28/16 12:51 POC ABG HCO3 24.0 10/28/16 12:51 POC ABG Total CO2 25 10/28/16 12:51 POC ABG O2 Sat 97 10/28/16 12:51 PT/INR, D-dimer PT 23.0 Sec. (12.2-14.9) H 10/27/16 08:14 INR 2.03 (0.87-1.13) H 10/27/16 08:14 Abnormal lab findings: Abnormal Labs 10/13/16 10/13/16 10/13/16 14:50 21:40 22:05 WBC RBC Hgb Hct MCV MCHC RDW Plt Count Seg Neuts % (Manual) Lymphocytes % (Manual) Nucleated RBC % Seg Neutrophils # Man Lymphocytes # (Manual) Haptoglobin PT INR Fibrinogen Lupus Anticoagulant LA PTT Baseline POC ABG pH POC ABG pCO2 POC ABG pO2 Sodium Potassium Chloride Carbon Dioxide BUN Creatinine Glucose POC Glucose 52 L 43 L Lactic Acid Uric Acid Calcium Phosphorus Iron TIBC Erythropoietin Ferritin Total Bilirubin Direct Bilirubin AST ALT Alkaline Phosphatase Lactate Dehydrogenase C-Reactive Protein Serum Total Protein 5.6 L Total Protein Albumin 2.2 L Rwiab-0-Cimlctbxb 0.5 H Abnorm Protein Band 1 1.4 H PEP Interpretation see below H Crossmatch 10/13/16 10/14/16 10/14/16 23:18 03:00 03:00 WBC RBC Hgb Hct MCV MCHC RDW Plt Count Seg Neuts % (Manual) Lymphocytes % (Manual) Nucleated RBC % Seg Neutrophils # Man Lymphocytes # (Manual) Haptoglobin PT INR Fibrinogen Lupus Anticoagulant see below H LA PTT Baseline 55 H POC ABG pH POC ABG pCO2 POC ABG pO2 Sodium Potassium Chloride Carbon Dioxide BUN Creatinine Glucose POC Glucose 113 H Lactic Acid Uric Acid Calcium Phosphorus Iron TIBC Erythropoietin Ferritin Total Bilirubin Direct Bilirubin AST ALT Alkaline Phosphatase Lactate Dehydrogenase 406 H C-Reactive Protein Serum Total Protein Total Protein Albumin Vzqzx-1-Shjbzcyty Abnorm Protein Band 1 PEP Interpretation Crossmatch 10/14/16 10/14/16 10/14/16 03:00 03:00 04:34 WBC 1.3 L* RBC 2.33 L Hgb 7.3 L Hct 21.7 L MCV MCHC RDW 19.8 H Plt Count 99 L Seg Neuts % (Manual) Lymphocytes % (Manual) 3.0 L Nucleated RBC % Seg Neutrophils # Man 0.9 L Lymphocytes # (Manual) 0.0 L Haptoglobin PT INR Fibrinogen Lupus Anticoagulant LA PTT Baseline POC ABG pH POC ABG pCO2 POC ABG pO2 Sodium Potassium Chloride Carbon Dioxide 18 L BUN 73 H Creatinine 9.8 H Glucose 59 L POC Glucose Lactic Acid Uric Acid 8.0 H Calcium 8.2 L Phosphorus 6.60 H Iron 13 L TIBC 160 L Erythropoietin Ferritin Total Bilirubin Direct Bilirubin AST ALT Alkaline Phosphatase Lactate Dehydrogenase C-Reactive Protein Serum Total Protein Total Protein Albumin Tcpug-7-Guzvwiffe Abnorm Protein Band 1 PEP Interpretation Crossmatch 10/14/16 10/14/16 10/14/16 05:27 06:29 07:34 WBC RBC Hgb Hct MCV MCHC RDW Plt Count Seg Neuts % (Manual) Lymphocytes % (Manual) Nucleated RBC % Seg Neutrophils # Man Lymphocytes # (Manual) Haptoglobin PT INR Fibrinogen Lupus Anticoagulant LA PTT Baseline POC ABG pH POC ABG pCO2 POC ABG pO2 Sodium Potassium Chloride Carbon Dioxide BUN Creatinine Glucose POC Glucose < 40 L 63 L < 40 L Lactic Acid Uric Acid Calcium Phosphorus Iron TIBC Erythropoietin Ferritin Total Bilirubin Direct Bilirubin AST ALT Alkaline Phosphatase Lactate Dehydrogenase C-Reactive Protein Serum Total Protein Total Protein Albumin Ixoup-5-Sijdsxspq Abnorm Protein Band 1 PEP Interpretation Crossmatch 10/14/16 10/14/16 10/14/16 09:58 09:58 09:58 WBC RBC Hgb Hct MCV MCHC RDW Plt Count Seg Neuts % (Manual) Lymphocytes % (Manual) Nucleated RBC % Seg Neutrophils # Man Lymphocytes # (Manual) Haptoglobin 218 H PT INR Fibrinogen 557 H Lupus Anticoagulant LA PTT Baseline POC ABG pH POC ABG pCO2 POC ABG pO2 Sodium Potassium Chloride Carbon Dioxide BUN Creatinine Glucose POC Glucose Lactic Acid Uric Acid Calcium Phosphorus Iron TIBC Erythropoietin Ferritin Total Bilirubin 1.30 H Direct Bilirubin 1.1 H AST ALT Alkaline Phosphatase Lactate Dehydrogenase C-Reactive Protein Serum Total Protein Total Protein Albumin Vlwlj-5-Vbmnvosvb Abnorm Protein Band 1 PEP Interpretation Crossmatch 10/14/16 10/14/16 10/14/16 10:57 11:15 12:52 WBC RBC Hgb Hct MCV MCHC RDW Plt Count Seg Neuts % (Manual) Lymphocytes % (Manual) Nucleated RBC % Seg Neutrophils # Man Lymphocytes # (Manual) Haptoglobin PT INR Fibrinogen Lupus Anticoagulant LA PTT Baseline POC ABG pH POC ABG pCO2 POC ABG pO2 Sodium Potassium Chloride Carbon Dioxide BUN Creatinine Glucose POC Glucose < 40 L < 40 L Lactic Acid 9.60 H* Uric Acid Calcium Phosphorus Iron TIBC Erythropoietin Ferritin Total Bilirubin Direct Bilirubin AST ALT Alkaline Phosphatase Lactate Dehydrogenase C-Reactive Protein Serum Total Protein Total Protein Albumin Aowbv-5-Kbkddshjj Abnorm Protein Band 1 PEP Interpretation Crossmatch 10/14/16 10/14/16 10/14/16 12:52 13:17 14:12 WBC RBC Hgb Hct MCV MCHC RDW Plt Count Seg Neuts % (Manual) Lymphocytes % (Manual) Nucleated RBC % Seg Neutrophils # Man Lymphocytes # (Manual) Haptoglobin PT INR Fibrinogen Lupus Anticoagulant LA PTT Baseline POC ABG pH POC ABG pCO2 POC ABG pO2 Sodium Potassium Chloride Carbon Dioxide BUN Creatinine Glucose POC Glucose < 40 L < 40 L Lactic Acid Uric Acid Calcium Phosphorus Iron TIBC Erythropoietin Ferritin Total Bilirubin Direct Bilirubin AST ALT Alkaline Phosphatase Lactate Dehydrogenase C-Reactive Protein 40.40 H Serum Total Protein Total Protein Albumin Kvhem-1-Vpmkhecgk Abnorm Protein Band 1 PEP Interpretation Crossmatch 10/14/16 10/14/16 10/14/16 15:02 15:33 15:33 WBC RBC Hgb Hct MCV MCHC RDW Plt Count Seg Neuts % (Manual) Lymphocytes % (Manual) Nucleated RBC % Seg Neutrophils # Man Lymphocytes # (Manual) Haptoglobin PT INR Fibrinogen Lupus Anticoagulant LA PTT Baseline POC ABG pH POC ABG pCO2 POC ABG pO2 Sodium Potassium Chloride Carbon Dioxide BUN Creatinine Glucose 19 L* POC Glucose < 40 L Lactic Acid 11.60 H* Uric Acid Calcium Phosphorus Iron TIBC Erythropoietin Ferritin Total Bilirubin Direct Bilirubin AST ALT Alkaline Phosphatase Lactate Dehydrogenase C-Reactive Protein Serum Total Protein Total Protein Albumin Smuqr-0-Iwtmslyuj Abnorm Protein Band 1 PEP Interpretation Crossmatch 10/14/16 10/14/16 10/14/16 17:14 18:03 21:25 WBC RBC Hgb Hct MCV MCHC RDW Plt Count Seg Neuts % (Manual) Lymphocytes % (Manual) Nucleated RBC % Seg Neutrophils # Man Lymphocytes # (Manual) Haptoglobin PT 28.9 H INR 2.71 H Fibrinogen Lupus Anticoagulant LA PTT Baseline POC ABG pH POC ABG pCO2 POC ABG pO2 Sodium Potassium Chloride Carbon Dioxide BUN Creatinine Glucose POC Glucose < 40 L 57 L Lactic Acid Uric Acid Calcium Phosphorus Iron TIBC Erythropoietin Ferritin Total Bilirubin Direct Bilirubin AST ALT Alkaline Phosphatase Lactate Dehydrogenase C-Reactive Protein Serum Total Protein Total Protein Albumin Aylkz-1-Aczhbmghl Abnorm Protein Band 1 PEP Interpretation Crossmatch 10/15/16 10/15/16 10/15/16 05:32 05:35 05:35 WBC RBC 2.62 L Hgb 8.1 L Hct 25.8 L MCV 98 H D MCHC 31 L RDW 21.2 H Plt Count 61 L Seg Neuts % (Manual) 27.0 L Lymphocytes % (Manual) 10.0 L Nucleated RBC % 2.0 H Seg Neutrophils # Man Lymphocytes # (Manual) 0.8 L Haptoglobin PT INR Fibrinogen Lupus Anticoagulant LA PTT Baseline POC ABG pH POC ABG pCO2 POC ABG pO2 Sodium Potassium Chloride Carbon Dioxide BUN Creatinine Glucose POC Glucose < 40 L Lactic Acid Uric Acid Calcium Phosphorus Iron TIBC Erythropoietin Ferritin Total Bilirubin Direct Bilirubin AST ALT Alkaline Phosphatase Lactate Dehydrogenase 3871 H C-Reactive Protein Serum Total Protein Total Protein Albumin Wpqos-6-Zvfjwryft Abnorm Protein Band 1 PEP Interpretation Crossmatch 10/15/16 10/15/16 10/15/16 05:35 05:35 05:35 WBC RBC Hgb Hct MCV MCHC RDW Plt Count Seg Neuts % (Manual) Lymphocytes % (Manual) Nucleated RBC % Seg Neutrophils # Man Lymphocytes # (Manual) Haptoglobin PT INR Fibrinogen Lupus Anticoagulant LA PTT Baseline POC ABG pH POC ABG pCO2 POC ABG pO2 Sodium 136 L Potassium 5.3 H D Chloride 91.4 L Carbon Dioxide 6 L* D BUN 57 H Creatinine 7.1 H Glucose 11 L* POC Glucose Lactic Acid 13.60 H* Uric Acid Calcium 7.7 L Phosphorus 10.10 H D Iron TIBC 166 L Erythropoietin Ferritin 9562.0 H Total Bilirubin Direct Bilirubin AST ALT Alkaline Phosphatase Lactate Dehydrogenase C-Reactive Protein Serum Total Protein Total Protein Albumin Axdjp-2-Shvydvbdf Abnorm Protein Band 1 PEP Interpretation Crossmatch 10/15/16 10/15/16 10/15/16 05:51 06:22 06:52 WBC RBC Hgb Hct MCV MCHC RDW Plt Count Seg Neuts % (Manual) Lymphocytes % (Manual) Nucleated RBC % Seg Neutrophils # Man Lymphocytes # (Manual) Haptoglobin PT INR Fibrinogen Lupus Anticoagulant LA PTT Baseline POC ABG pH 7.189 L POC ABG pCO2 28.9 L POC ABG pO2 Sodium Potassium Chloride Carbon Dioxide BUN Creatinine Glucose POC Glucose 59 L 111 H Lactic Acid Uric Acid Calcium Phosphorus Iron TIBC Erythropoietin Ferritin Total Bilirubin Direct Bilirubin AST ALT Alkaline Phosphatase Lactate Dehydrogenase C-Reactive Protein Serum Total Protein Total Protein Albumin Optfh-3-Wweftkvam Abnorm Protein Band 1 PEP Interpretation Crossmatch 10/15/16 10/15/16 10/15/16 08:00 09:57 11:42 WBC RBC Hgb Hct MCV MCHC RDW Plt Count Seg Neuts % (Manual) Lymphocytes % (Manual) Nucleated RBC % Seg Neutrophils # Man Lymphocytes # (Manual) Haptoglobin PT INR Fibrinogen Lupus Anticoagulant LA PTT Baseline POC ABG pH POC ABG pCO2 POC ABG pO2 Sodium Potassium Chloride Carbon Dioxide BUN Creatinine Glucose POC Glucose 63 L 143 H 203 H Lactic Acid Uric Acid Calcium Phosphorus Iron TIBC Erythropoietin Ferritin Total Bilirubin Direct Bilirubin AST ALT Alkaline Phosphatase Lactate Dehydrogenase C-Reactive Protein Serum Total Protein Total Protein Albumin Dejzz-8-Mkmmmvpay Abnorm Protein Band 1 PEP Interpretation Crossmatch 10/15/16 10/15/16 10/15/16 12:00 12:00 13:00 WBC RBC Hgb Hct MCV MCHC RDW Plt Count Seg Neuts % (Manual) Lymphocytes % (Manual) Nucleated RBC % Seg Neutrophils # Man Lymphocytes # (Manual) Haptoglobin <15 L PT INR Fibrinogen Lupus Anticoagulant LA PTT Baseline POC ABG pH POC ABG pCO2 POC ABG pO2 Sodium Potassium Chloride Carbon Dioxide BUN Creatinine Glucose POC Glucose 136 H Lactic Acid 16.30 H* Uric Acid Calcium Phosphorus Iron TIBC Erythropoietin Ferritin Total Bilirubin Direct Bilirubin AST ALT Alkaline Phosphatase Lactate Dehydrogenase C-Reactive Protein Serum Total Protein Total Protein Albumin Rqknp-2-Jdutazpje Abnorm Protein Band 1 PEP Interpretation Crossmatch 10/15/16 10/15/16 10/15/16 14:06 15:15 16:23 WBC RBC Hgb Hct MCV MCHC RDW Plt Count Seg Neuts % (Manual) Lymphocytes % (Manual) Nucleated RBC % Seg Neutrophils # Man Lymphocytes # (Manual) Haptoglobin PT INR Fibrinogen Lupus Anticoagulant LA PTT Baseline POC ABG pH POC ABG pCO2 POC ABG pO2 Sodium Potassium Chloride Carbon Dioxide BUN Creatinine Glucose POC Glucose 132 H 64 L Lactic Acid 20.40 H* Uric Acid Calcium Phosphorus Iron TIBC Erythropoietin Ferritin Total Bilirubin Direct Bilirubin AST ALT Alkaline Phosphatase Lactate Dehydrogenase C-Reactive Protein Serum Total Protein Total Protein Albumin Miqvy-1-Xaqdedkoe Abnorm Protein Band 1 PEP Interpretation Crossmatch 10/15/16 10/15/16 10/15/16 16:40 17:00 17:10 WBC RBC Hgb Hct MCV MCHC RDW Plt Count Seg Neuts % (Manual) Lymphocytes % (Manual) Nucleated RBC % Seg Neutrophils # Man Lymphocytes # (Manual) Haptoglobin PT INR Fibrinogen Lupus Anticoagulant LA PTT Baseline POC ABG pH 7.323 L POC ABG pCO2 25.8 L POC ABG pO2 135 H Sodium Potassium Chloride Carbon Dioxide BUN Creatinine Glucose POC Glucose 159 H Lactic Acid 20.20 H* Uric Acid Calcium Phosphorus Iron TIBC Erythropoietin Ferritin Total Bilirubin Direct Bilirubin AST ALT Alkaline Phosphatase Lactate Dehydrogenase C-Reactive Protein Serum Total Protein Total Protein Albumin Fgsuu-7-Wbhaaexoi Abnorm Protein Band 1 PEP Interpretation Crossmatch 10/15/16 10/15/16 10/15/16 17:46 17:53 18:45 WBC RBC Hgb Hct MCV MCHC RDW Plt Count Seg Neuts % (Manual) Lymphocytes % (Manual) Nucleated RBC % Seg Neutrophils # Man Lymphocytes # (Manual) Haptoglobin PT INR Fibrinogen Lupus Anticoagulant LA PTT Baseline POC ABG pH POC ABG pCO2 POC ABG pO2 Sodium Potassium Chloride Carbon Dioxide BUN Creatinine Glucose POC Glucose 126 H 143 H Lactic Acid 21.40 H* Uric Acid Calcium Phosphorus Iron TIBC Erythropoietin Ferritin Total Bilirubin Direct Bilirubin AST ALT Alkaline Phosphatase Lactate Dehydrogenase C-Reactive Protein Serum Total Protein Total Protein Albumin Ncdqd-9-Zmmbirnol Abnorm Protein Band 1 PEP Interpretation Crossmatch 10/15/16 10/15/16 10/16/16 20:03 22:59 00:06 WBC RBC Hgb Hct MCV MCHC RDW Plt Count Seg Neuts % (Manual) Lymphocytes % (Manual) Nucleated RBC % Seg Neutrophils # Man Lymphocytes # (Manual) Haptoglobin PT INR Fibrinogen Lupus Anticoagulant LA PTT Baseline POC ABG pH POC ABG pCO2 POC ABG pO2 Sodium Potassium Chloride Carbon Dioxide BUN Creatinine Glucose POC Glucose 66 L 53 L 126 H Lactic Acid Uric Acid Calcium Phosphorus Iron TIBC Erythropoietin Ferritin Total Bilirubin Direct Bilirubin AST ALT Alkaline Phosphatase Lactate Dehydrogenase C-Reactive Protein Serum Total Protein Total Protein Albumin Qsqat-0-Eipfkpxva Abnorm Protein Band 1 PEP Interpretation Crossmatch 10/16/16 10/16/16 10/16/16 01:03 03:55 04:00 WBC RBC Hgb Hct MCV MCHC RDW Plt Count Seg Neuts % (Manual) Lymphocytes % (Manual) Nucleated RBC % Seg Neutrophils # Man Lymphocytes # (Manual) Haptoglobin PT INR Fibrinogen Lupus Anticoagulant LA PTT Baseline POC ABG pH POC ABG pCO2 POC ABG pO2 Sodium Potassium Chloride Carbon Dioxide BUN Creatinine Glucose POC Glucose 107 H 260 H Lactic Acid 18.00 H* Uric Acid Calcium Phosphorus Iron TIBC Erythropoietin Ferritin Total Bilirubin Direct Bilirubin AST ALT Alkaline Phosphatase Lactate Dehydrogenase C-Reactive Protein Serum Total Protein Total Protein Albumin Rdfvr-8-Sepnsuqoq Abnorm Protein Band 1 PEP Interpretation Crossmatch 10/16/16 10/16/16 10/16/16 04:03 07:58 08:34 WBC RBC Hgb Hct MCV MCHC RDW Plt Count Seg Neuts % (Manual) Lymphocytes % (Manual) Nucleated RBC % Seg Neutrophils # Man Lymphocytes # (Manual) Haptoglobin PT INR Fibrinogen Lupus Anticoagulant LA PTT Baseline POC ABG pH 7.527 H POC ABG pCO2 32.9 L POC ABG pO2 119 H Sodium Potassium Chloride Carbon Dioxide BUN Creatinine Glucose POC Glucose 120 H 66 L Lactic Acid Uric Acid Calcium Phosphorus Iron TIBC Erythropoietin Ferritin Total Bilirubin Direct Bilirubin AST ALT Alkaline Phosphatase Lactate Dehydrogenase C-Reactive Protein Serum Total Protein Total Protein Albumin Rlonv-2-Zszkqhbmf Abnorm Protein Band 1 PEP Interpretation Crossmatch 10/16/16 10/16/16 10/16/16 09:13 10:06 10:57 WBC RBC Hgb Hct MCV MCHC RDW Plt Count Seg Neuts % (Manual) Lymphocytes % (Manual) Nucleated RBC % Seg Neutrophils # Man Lymphocytes # (Manual) Haptoglobin PT INR Fibrinogen Lupus Anticoagulant LA PTT Baseline POC ABG pH POC ABG pCO2 POC ABG pO2 Sodium Potassium Chloride Carbon Dioxide BUN Creatinine Glucose POC Glucose 147 H 137 H 140 H Lactic Acid Uric Acid Calcium Phosphorus Iron TIBC Erythropoietin Ferritin Total Bilirubin Direct Bilirubin AST ALT Alkaline Phosphatase Lactate Dehydrogenase C-Reactive Protein Serum Total Protein Total Protein Albumin Mlydi-4-Bgxekhptv Abnorm Protein Band 1 PEP Interpretation Crossmatch 10/16/16 10/16/16 10/16/16 11:15 11:15 11:15 WBC 25.8 H RBC 2.30 L Hgb 7.0 L Hct 22.3 L MCV 97 H MCHC 31 L RDW 21.2 H Plt Count 42 L Seg Neuts % (Manual) Lymphocytes % (Manual) 3.0 L Nucleated RBC % 2.0 H Seg Neutrophils # Man 11.1 H Lymphocytes # (Manual) 0.8 L Haptoglobin PT INR Fibrinogen Lupus Anticoagulant LA PTT Baseline POC ABG pH POC ABG pCO2 POC ABG pO2 Sodium Potassium Chloride 81.7 L Carbon Dioxide 13 L D BUN 61 H Creatinine 6.2 H Glucose 171 H POC Glucose Lactic Acid 22.70 H* Uric Acid Calcium 7.1 L Phosphorus 9.10 H Iron TIBC Erythropoietin Ferritin Total Bilirubin Direct Bilirubin AST ALT Alkaline Phosphatase Lactate Dehydrogenase C-Reactive Protein Serum Total Protein Total Protein Albumin Gthhw-9-Jwcverowb Abnorm Protein Band 1 PEP Interpretation Crossmatch 10/16/16 10/16/16 10/16/16 15:10 15:50 18:11 WBC RBC Hgb Hct MCV MCHC RDW Plt Count Seg Neuts % (Manual) Lymphocytes % (Manual) Nucleated RBC % Seg Neutrophils # Man Lymphocytes # (Manual) Haptoglobin PT INR Fibrinogen Lupus Anticoagulant LA PTT Baseline POC ABG pH POC ABG pCO2 POC ABG pO2 Sodium Potassium Chloride Carbon Dioxide BUN Creatinine Glucose POC Glucose 47 L 164 H 58 L Lactic Acid Uric Acid Calcium Phosphorus Iron TIBC Erythropoietin Ferritin Total Bilirubin Direct Bilirubin AST ALT Alkaline Phosphatase Lactate Dehydrogenase C-Reactive Protein Serum Total Protein Total Protein Albumin Ofafs-3-Stfxhhtcu Abnorm Protein Band 1 PEP Interpretation Crossmatch 10/16/16 10/16/16 10/17/16 18:26 21:06 00:06 WBC RBC Hgb Hct MCV MCHC RDW Plt Count Seg Neuts % (Manual) Lymphocytes % (Manual) Nucleated RBC % Seg Neutrophils # Man Lymphocytes # (Manual) Haptoglobin PT INR Fibrinogen Lupus Anticoagulant LA PTT Baseline POC ABG pH POC ABG pCO2 POC ABG pO2 489 H Sodium Potassium Chloride Carbon Dioxide BUN Creatinine Glucose POC Glucose 52 L 120 H Lactic Acid Uric Acid Calcium Phosphorus Iron TIBC Erythropoietin Ferritin Total Bilirubin Direct Bilirubin AST ALT Alkaline Phosphatase Lactate Dehydrogenase C-Reactive Protein Serum Total Protein Total Protein Albumin Tusic-1-Dxeqripfv Abnorm Protein Band 1 PEP Interpretation Crossmatch 10/17/16 10/17/16 10/17/16 04:55 04:55 05:04 WBC 25.5 H RBC 2.23 L Hgb 6.6 L Hct 21.2 L MCV 95 H MCHC 31 L RDW 20.5 H Plt Count 35 L Seg Neuts % (Manual) 79.0 H Lymphocytes % (Manual) 0 L Nucleated RBC % Seg Neutrophils # Man 20.1 H Lymphocytes # (Manual) 0.0 L Haptoglobin PT INR Fibrinogen Lupus Anticoagulant LA PTT Baseline POC ABG pH POC ABG pCO2 27.2 L POC ABG pO2 162 H Sodium Potassium Chloride 91.5 L Carbon Dioxide 16 L BUN 45 H Creatinine 4.5 H Glucose 103 H POC Glucose Lactic Acid Uric Acid Calcium 6.9 L Phosphorus 5.80 H D Iron TIBC Erythropoietin Ferritin Total Bilirubin Direct Bilirubin AST ALT Alkaline Phosphatase Lactate Dehydrogenase C-Reactive Protein Serum Total Protein Total Protein Albumin Afhch-7-Xlgmmfxdq Abnorm Protein Band 1 PEP Interpretation Crossmatch 10/17/16 10/17/16 10/17/16 07:59 09:04 10:04 WBC RBC Hgb Hct MCV MCHC RDW Plt Count Seg Neuts % (Manual) Lymphocytes % (Manual) Nucleated RBC % Seg Neutrophils # Man Lymphocytes # (Manual) Haptoglobin PT INR Fibrinogen Lupus Anticoagulant LA PTT Baseline POC ABG pH POC ABG pCO2 POC ABG pO2 Sodium Potassium Chloride Carbon Dioxide BUN Creatinine Glucose POC Glucose 65 L 118 H Lactic Acid Uric Acid Calcium Phosphorus Iron TIBC Erythropoietin Ferritin Total Bilirubin Direct Bilirubin AST ALT Alkaline Phosphatase Lactate Dehydrogenase C-Reactive Protein Serum Total Protein Total Protein Albumin Vtdnf-1-Vexpduhsa Abnorm Protein Band 1 PEP Interpretation Crossmatch See Detail 10/17/16 10/17/16 10/17/16 11:52 13:08 15:42 WBC RBC Hgb Hct MCV MCHC RDW Plt Count Seg Neuts % (Manual) Lymphocytes % (Manual) Nucleated RBC % Seg Neutrophils # Man Lymphocytes # (Manual) Haptoglobin PT INR Fibrinogen Lupus Anticoagulant LA PTT Baseline POC ABG pH POC ABG pCO2 POC ABG pO2 Sodium Potassium Chloride Carbon Dioxide BUN Creatinine Glucose POC Glucose 125 H 106 H 55 L Lactic Acid Uric Acid Calcium Phosphorus Iron TIBC Erythropoietin Ferritin Total Bilirubin Direct Bilirubin AST ALT Alkaline Phosphatase Lactate Dehydrogenase C-Reactive Protein Serum Total Protein Total Protein Albumin Jylyu-4-Aehitqexe Abnorm Protein Band 1 PEP Interpretation Crossmatch 10/17/16 10/17/16 10/17/16 17:39 20:37 21:02 WBC RBC Hgb Hct MCV MCHC RDW Plt Count Seg Neuts % (Manual) Lymphocytes % (Manual) Nucleated RBC % Seg Neutrophils # Man Lymphocytes # (Manual) Haptoglobin PT INR Fibrinogen Lupus Anticoagulant [place] PTT Baseline POC ABG pH POC ABG pCO2 28.2 L POC ABG pO2 Sodium Potassium Chloride Carbon Dioxide BUN Creatinine Glucose POC Glucose < 40 L 106 H Lactic Acid Uric Acid Calcium Phosphorus Iron TIBC Erythropoietin Ferritin Total Bilirubin Direct Bilirubin AST ALT Alkaline Phosphatase Lactate Dehydrogenase C-Reactive Protein Serum Total Protein Total Protein Albumin Ikepn-1-Cpiibubtc Abnorm Protein Band 1 PEP Interpretation Crossmatch 10/17/16 10/17/16 10/18/16 22:18 23:14 00:28 WBC RBC Hgb Hct MCV MCHC RDW Plt Count Seg Neuts % (Manual) Lymphocytes % (Manual) Nucleated RBC % Seg Neutrophils # Man Lymphocytes # (Manual) Haptoglobin PT INR Fibrinogen Lupus Anticoagulant [place] PTT Baseline POC ABG pH POC ABG pCO2 POC ABG pO2 Sodium Potassium Chloride Carbon Dioxide BUN Creatinine Glucose POC Glucose 111 H 118 H 112 H Lactic Acid Uric Acid Calcium Phosphorus Iron TIBC Erythropoietin Ferritin Total Bilirubin Direct Bilirubin AST ALT Alkaline Phosphatase Lactate Dehydrogenase C-Reactive Protein Serum Total Protein Total Protein Albumin Ginyn-5-Lyoegbfri Abnorm Protein Band 1 PEP Interpretation Crossmatch 10/18/16 10/18/16 10/18/16 05:00 05:00 05:15 WBC 27.3 H RBC 2.75 L Hgb 7.9 L Hct 25.3 L MCV MCHC 31 L RDW 20.7 H Plt Count 31 L Seg Neuts % (Manual) 87.0 H Lymphocytes % (Manual) 1.0 L Nucleated RBC % 1.0 H Seg Neutrophils # Man 23.8 H Lymphocytes # (Manual) 0.3 L Haptoglobin PT INR Fibrinogen Lupus Anticoagulant [place] PTT Baseline POC ABG pH 7.466 H POC ABG pCO2 25.1 L POC ABG pO2 Sodium Potassium Chloride 88.7 L Carbon Dioxide 18 L BUN 66 H Creatinine 4.7 H Glucose POC Glucose Lactic Acid Uric Acid Calcium 6.1 L Phosphorus 7.30 H D Iron TIBC Erythropoietin Ferritin Total Bilirubin Direct Bilirubin AST ALT Alkaline Phosphatase Lactate Dehydrogenase C-Reactive Protein Serum Total Protein Total Protein Albumin Xaapc-1-Gnxessgma Abnorm Protein Band 1 PEP Interpretation Crossmatch 10/18/16 10/18/16 10/18/16 07:15 07:44 09:07 WBC RBC Hgb Hct MCV MCHC RDW Plt Count Seg Neuts % (Manual) Lymphocytes % (Manual) Nucleated RBC % Seg Neutrophils # Man Lymphocytes # (Manual) Haptoglobin PT INR Fibrinogen Lupus Anticoagulant [place] PTT Baseline POC ABG pH POC ABG pCO2 POC ABG pO2 Sodium Potassium Chloride Carbon Dioxide BUN Creatinine Glucose POC Glucose 64 L 156 H 117 H Lactic Acid Uric Acid Calcium Phosphorus Iron TIBC Erythropoietin Ferritin Total Bilirubin Direct Bilirubin AST ALT Alkaline Phosphatase Lactate Dehydrogenase C-Reactive Protein Serum Total Protein Total Protein Albumin Shqbr-8-Avbmjvfcg Abnorm Protein Band 1 PEP Interpretation Crossmatch 10/18/16 10/18/16 10/18/16 09:15 14:00 18:21 WBC RBC Hgb Hct MCV MCHC RDW Plt Count Seg Neuts % (Manual) Lymphocytes % (Manual) Nucleated RBC % Seg Neutrophils # Man Lymphocytes # (Manual) Haptoglobin PT INR Fibrinogen Lupus Anticoagulant [place] PTT Baseline POC ABG pH POC ABG pCO2 POC ABG pO2 Sodium Potassium Chloride Carbon Dioxide BUN Creatinine Glucose POC Glucose 106 H 112 H Lactic Acid 14.30 H* Uric Acid Calcium Phosphorus Iron TIBC Erythropoietin Ferritin Total Bilirubin Direct Bilirubin AST ALT Alkaline Phosphatase Lactate Dehydrogenase C-Reactive Protein Serum Total Protein Total Protein Albumin Jhpqx-7-Xqkfzdkqk Abnorm Protein Band 1 PEP Interpretation Crossmatch 10/18/16 10/18/16 10/18/16 19:58 20:55 22:11 WBC RBC Hgb Hct MCV MCHC RDW Plt Count Seg Neuts % (Manual) Lymphocytes % (Manual) Nucleated RBC % Seg Neutrophils # Man Lymphocytes # (Manual) Haptoglobin PT INR Fibrinogen Lupus Anticoagulant [place] PTT Baseline POC ABG pH POC ABG pCO2 POC ABG pO2 Sodium Potassium Chloride Carbon Dioxide BUN Creatinine Glucose POC Glucose 127 H 125 H 159 H Lactic Acid Uric Acid Calcium Phosphorus Iron TIBC Erythropoietin Ferritin Total Bilirubin Direct Bilirubin AST ALT Alkaline Phosphatase Lactate Dehydrogenase C-Reactive Protein Serum Total Protein Total Protein Albumin Hrnyh-9-Dbxxjyoab Abnorm Protein Band 1 PEP Interpretation Crossmatch 10/18/16 10/18/16 10/19/16 23:11 23:57 01:06 WBC RBC Hgb Hct MCV MCHC RDW Plt Count Seg Neuts % (Manual) Lymphocytes % (Manual) Nucleated RBC % Seg Neutrophils # Man Lymphocytes # (Manual) Haptoglobin PT INR Fibrinogen Lupus Anticoagulant [place] PTT Baseline POC ABG pH POC ABG pCO2 POC ABG pO2 Sodium Potassium Chloride Carbon Dioxide BUN Creatinine Glucose POC Glucose 122 H 137 H 162 H Lactic Acid Uric Acid Calcium Phosphorus Iron TIBC Erythropoietin Ferritin Total Bilirubin Direct Bilirubin AST ALT Alkaline Phosphatase Lactate Dehydrogenase C-Reactive Protein Serum Total Protein Total Protein Albumin Ycryk-9-Virjwvsml Abnorm Protein Band 1 PEP Interpretation Crossmatch 10/19/16 10/19/16 10/19/16 01:59 03:07 04:10 WBC RBC Hgb Hct MCV MCHC RDW Plt Count Seg Neuts % (Manual) Lymphocytes % (Manual) Nucleated RBC % Seg Neutrophils # Man Lymphocytes # (Manual) Haptoglobin PT INR Fibrinogen Lupus Anticoagulant [place] PTT Baseline POC ABG pH POC ABG pCO2 POC ABG pO2 Sodium Potassium Chloride Carbon Dioxide BUN Creatinine Glucose POC Glucose 154 H 178 H 186 H Lactic Acid Uric Acid Calcium Phosphorus Iron TIBC Erythropoietin Ferritin Total Bilirubin Direct Bilirubin AST ALT Alkaline Phosphatase Lactate Dehydrogenase C-Reactive Protein Serum Total Protein Total Protein Albumin Rmmer-7-Vgfpogimd Abnorm Protein Band 1 PEP Interpretation Crossmatch 10/19/16 10/19/16 10/19/16 05:14 05:15 05:47 WBC RBC Hgb Hct MCV MCHC RDW Plt Count Seg Neuts % (Manual) Lymphocytes % (Manual) Nucleated RBC % Seg Neutrophils # Man Lymphocytes # (Manual) Haptoglobin PT INR Fibrinogen Lupus Anticoagulant [place] PTT Baseline POC ABG pH 7.581 H POC ABG pCO2 22.9 L POC ABG pO2 58 L Sodium Potassium Chloride Carbon Dioxide BUN Creatinine Glucose POC Glucose 197 H 204 H Lactic Acid Uric Acid Calcium Phosphorus Iron TIBC Erythropoietin Ferritin Total Bilirubin Direct Bilirubin AST ALT Alkaline Phosphatase Lactate Dehydrogenase C-Reactive Protein Serum Total Protein Total Protein Albumin Bdadk-4-Lmtlxdltv Abnorm Protein Band 1 PEP Interpretation Crossmatch 10/19/16 10/19/16 10/19/16 06:00 06:00 07:51 WBC 23.0 H RBC 2.54 L Hgb 7.5 L Hct 23.0 L MCV MCHC RDW 20.7 H Plt Count 25 L Seg Neuts % (Manual) 91.0 H Lymphocytes % (Manual) 2.0 L Nucleated RBC % 1.0 H Seg Neutrophils # Man 20.9 H Lymphocytes # (Manual) 0.5 L Haptoglobin PT INR Fibrinogen Lupus Anticoagulant [place] PTT Baseline POC ABG pH POC ABG pCO2 POC ABG pO2 Sodium Potassium Chloride 88.7 L Carbon Dioxide 21 L BUN 70 H Creatinine 3.9 H Glucose 189 H POC Glucose 145 H Lactic Acid Uric Acid Calcium 5.6 L* Phosphorus 6.30 H Iron TIBC Erythropoietin Ferritin Total Bilirubin Direct Bilirubin AST ALT Alkaline Phosphatase Lactate Dehydrogenase C-Reactive Protein Serum Total Protein Total Protein Albumin Pbqlb-6-Mgtmboavo Abnorm Protein Band 1 PEP Interpretation Crossmatch 10/19/16 10/19/16 10/19/16 09:14 10:01 12:14 WBC RBC Hgb Hct MCV MCHC RDW Plt Count Seg Neuts % (Manual) Lymphocytes % (Manual) Nucleated RBC % Seg Neutrophils # Man Lymphocytes # (Manual) Haptoglobin PT INR Fibrinogen Lupus Anticoagulant [place] PTT Baseline POC ABG pH POC ABG pCO2 POC ABG pO2 Sodium Potassium Chloride Carbon Dioxide BUN Creatinine Glucose POC Glucose 173 H 153 H 180 H Lactic Acid Uric Acid Calcium Phosphorus Iron TIBC Erythropoietin Ferritin Total Bilirubin Direct Bilirubin AST ALT Alkaline Phosphatase Lactate Dehydrogenase C-Reactive Protein Serum Total Protein Total Protein Albumin Xntce-2-Djpvynunz Abnorm Protein Band 1 PEP Interpretation Crossmatch 10/19/16 10/19/16 10/19/16 14:15 16:38 20:27 WBC RBC Hgb Hct MCV MCHC RDW Plt Count Seg Neuts % (Manual) Lymphocytes % (Manual) Nucleated RBC % Seg Neutrophils # Man Lymphocytes # (Manual) Haptoglobin PT INR Fibrinogen Lupus Anticoagulant [place] PTT Baseline POC ABG pH POC ABG pCO2 POC ABG pO2 Sodium Potassium Chloride Carbon Dioxide BUN Creatinine Glucose POC Glucose 194 H 202 H Lactic Acid Uric Acid Calcium Phosphorus Iron TIBC Erythropoietin 148.2 H Ferritin Total Bilirubin Direct Bilirubin AST ALT Alkaline Phosphatase Lactate Dehydrogenase C-Reactive Protein Serum Total Protein Total Protein Albumin Dugum-9-Jshlsjmpy Abnorm Protein Band 1 PEP Interpretation Crossmatch 10/19/16 10/20/16 10/20/16 23:27 04:06 05:00 WBC RBC Hgb Hct MCV MCHC RDW Plt Count Seg Neuts % (Manual) Lymphocytes % (Manual) Nucleated RBC % Seg Neutrophils # Man Lymphocytes # (Manual) Haptoglobin PT INR Fibrinogen Lupus Anticoagulant [place] PTT Baseline POC ABG pH POC ABG pCO2 POC ABG pO2 Sodium Potassium Chloride 88.8 L Carbon Dioxide BUN 93 H Creatinine 4.3 H Glucose 204 H POC Glucose 201 H 200 H Lactic Acid Uric Acid Calcium 5.2 L* Phosphorus Iron TIBC Erythropoietin Ferritin Total Bilirubin Direct Bilirubin AST ALT Alkaline Phosphatase Lactate Dehydrogenase C-Reactive Protein Serum Total Protein Total Protein Albumin Ilqpk-4-Ulognmplm Abnorm Protein Band 1 PEP Interpretation Crossmatch 10/20/16 10/20/16 10/20/16 05:16 06:00 07:43 WBC 24.8 H RBC 2.52 L Hgb 7.4 L Hct 22.9 L MCV MCHC RDW 19.9 H Plt Count 23 L Seg Neuts % (Manual) 97.0 H Lymphocytes % (Manual) 1.0 L Nucleated RBC % 9.0 H Seg Neutrophils # Man 24.1 H Lymphocytes # (Manual) 0.2 L Haptoglobin PT INR Fibrinogen Lupus Anticoagulant [place] PTT Baseline POC ABG pH 7.463 H POC ABG pCO2 POC ABG pO2 157 H Sodium Potassium Chloride Carbon Dioxide BUN Creatinine Glucose POC Glucose 192 H Lactic Acid Uric Acid Calcium Phosphorus Iron TIBC Erythropoietin Ferritin Total Bilirubin Direct Bilirubin AST ALT Alkaline Phosphatase Lactate Dehydrogenase C-Reactive Protein Serum Total Protein Total Protein Albumin Rdbcf-1-Qpwmxkyba Abnorm Protein Band 1 PEP Interpretation Crossmatch 10/20/16 10/20/16 10/20/16 12:11 15:32 21:23 WBC RBC Hgb Hct MCV MCHC RDW Plt Count Seg Neuts % (Manual) Lymphocytes % (Manual) Nucleated RBC % Seg Neutrophils # Man Lymphocytes # (Manual) Haptoglobin PT INR Fibrinogen Lupus Anticoagulant [place] PTT Baseline POC ABG pH POC ABG pCO2 POC ABG pO2 Sodium Potassium Chloride Carbon Dioxide BUN Creatinine Glucose POC Glucose 172 H 216 H 271 H Lactic Acid Uric Acid Calcium Phosphorus Iron TIBC Erythropoietin Ferritin Total Bilirubin Direct Bilirubin AST ALT Alkaline Phosphatase Lactate Dehydrogenase C-Reactive Protein Serum Total Protein Total Protein Albumin Gojjg-1-Yvsclgtxs Abnorm Protein Band 1 PEP Interpretation Crossmatch 10/20/16 10/21/16 10/21/16 23:49 03:53 04:58 WBC RBC Hgb Hct MCV MCHC RDW Plt Count Seg Neuts % (Manual) Lymphocytes % (Manual) Nucleated RBC % Seg Neutrophils # Man Lymphocytes # (Manual) Haptoglobin PT INR Fibrinogen Lupus Anticoagulant [place] PTT Baseline POC ABG pH 7.459 H POC ABG pCO2 POC ABG pO2 113 H Sodium 136 L Potassium 2.8 L* D Chloride 91.6 L Carbon Dioxide BUN 62 H Creatinine 2.8 H Glucose 236 H POC Glucose 317 H Lactic Acid Uric Acid Calcium 6.2 L D Phosphorus Iron TIBC Erythropoietin Ferritin Total Bilirubin 2.70 H Direct Bilirubin AST 73 H ALT 57 H Alkaline Phosphatase 158 H Lactate Dehydrogenase C-Reactive Protein Serum Total Protein Total Protein 4.9 L Albumin 2.6 L Erkjj-9-Kgotnghyy Abnorm Protein Band 1 PEP Interpretation Crossmatch 10/21/16 10/21/16 10/21/16 05:25 07:11 10:30 WBC 28.1 H RBC 2.36 L Hgb 7.0 L Hct 21.6 L MCV MCHC RDW 20.0 H Plt Count 14 L* Seg Neuts % (Manual) 92.0 H Lymphocytes % (Manual) 0 L Nucleated RBC % 5.0 H Seg Neutrophils # Man 25.9 H Lymphocytes # (Manual) 0.0 L Haptoglobin PT INR Fibrinogen Lupus Anticoagulant [place] PTT Baseline POC ABG pH POC ABG pCO2 POC ABG pO2 Sodium Potassium Chloride Carbon Dioxide BUN Creatinine Glucose POC Glucose 237 H 206 H Lactic Acid Uric Acid Calcium Phosphorus Iron TIBC Erythropoietin Ferritin Total Bilirubin Direct Bilirubin AST ALT Alkaline Phosphatase Lactate Dehydrogenase C-Reactive Protein Serum Total Protein Total Protein Albumin Rluso-9-Ttvzfnyfj Abnorm Protein Band 1 PEP Interpretation Crossmatch 10/21/16 10/21/16 10/21/16 11:25 12:31 16:33 WBC RBC Hgb Hct MCV MCHC RDW Plt Count Seg Neuts % (Manual) Lymphocytes % (Manual) Nucleated RBC % Seg Neutrophils # Man Lymphocytes # (Manual) Haptoglobin PT 49.1 H INR 5.28 H* Fibrinogen Lupus Anticoagulant [place] PTT Baseline POC ABG pH POC ABG pCO2 POC ABG pO2 Sodium Potassium Chloride Carbon Dioxide BUN Creatinine Glucose POC Glucose 145 H 151 H Lactic Acid Uric Acid Calcium Phosphorus Iron TIBC Erythropoietin Ferritin Total Bilirubin Direct Bilirubin AST ALT Alkaline Phosphatase Lactate Dehydrogenase C-Reactive Protein Serum Total Protein Total Protein Albumin Mecgt-0-Ypjgcddcb Abnorm Protein Band 1 PEP Interpretation Crossmatch 10/21/16 10/22/16 10/22/16 19:53 00:00 05:23 WBC RBC Hgb Hct MCV MCHC RDW Plt Count Seg Neuts % (Manual) Lymphocytes % (Manual) Nucleated RBC % Seg Neutrophils # Man Lymphocytes # (Manual) Haptoglobin PT INR Fibrinogen Lupus Anticoagulant [place] PTT Baseline POC ABG pH POC ABG pCO2 POC ABG pO2 Sodium Potassium Chloride Carbon Dioxide BUN Creatinine Glucose POC Glucose 170 H 168 H 131 H Lactic Acid Uric Acid Calcium Phosphorus Iron TIBC Erythropoietin Ferritin Total Bilirubin Direct Bilirubin AST ALT Alkaline Phosphatase Lactate Dehydrogenase C-Reactive Protein Serum Total Protein Total Protein Albumin Palqv-7-Wjtemnech Abnorm Protein Band 1 PEP Interpretation Crossmatch 10/22/16 10/22/16 10/22/16 05:25 05:35 13:03 WBC RBC Hgb Hct MCV MCHC RDW Plt Count Seg Neuts % (Manual) Lymphocytes % (Manual) Nucleated RBC % Seg Neutrophils # Man Lymphocytes # (Manual) Haptoglobin PT INR Fibrinogen Lupus Anticoagulant [place] PTT Baseline POC ABG pH 7.462 H POC ABG pCO2 POC ABG pO2 Sodium 135 L Potassium 3.0 L Chloride 88.5 L Carbon Dioxide BUN 84 H Creatinine 3.4 H Glucose 124 H POC Glucose 164 H Lactic Acid Uric Acid Calcium 5.9 L* Phosphorus Iron TIBC Erythropoietin Ferritin Total Bilirubin 2.00 H Direct Bilirubin AST 85 H ALT Alkaline Phosphatase 199 H Lactate Dehydrogenase C-Reactive Protein Serum Total Protein Total Protein 5.0 L Albumin 2.5 L Cndio-4-Pkfaffslp Abnorm Protein Band 1 PEP Interpretation Crossmatch 10/22/16 10/22/16 10/23/16 17:14 23:16 04:47 WBC RBC Hgb Hct MCV MCHC RDW Plt Count Seg Neuts % (Manual) Lymphocytes % (Manual) Nucleated RBC % Seg Neutrophils # Man Lymphocytes # (Manual) Haptoglobin PT INR Fibrinogen Lupus Anticoagulant [place] PTT Baseline POC ABG pH 7.476 H POC ABG pCO2 POC ABG pO2 108 H Sodium Potassium Chloride Carbon Dioxide BUN Creatinine Glucose POC Glucose 188 H 167 H Lactic Acid Uric Acid Calcium Phosphorus Iron TIBC Erythropoietin Ferritin Total Bilirubin Direct Bilirubin AST ALT Alkaline Phosphatase Lactate Dehydrogenase C-Reactive Protein Serum Total Protein Total Protein Albumin Kzahv-2-Nquommzcd Abnorm Protein Band 1 PEP Interpretation Crossmatch 10/23/16 10/23/16 10/23/16 05:49 07:00 07:12 WBC 24.2 H RBC 2.27 L Hgb 7.0 L Hct 21.1 L MCV MCHC RDW 19.7 H Plt Count 35 L D Seg Neuts % (Manual) Lymphocytes % (Manual) Nucleated RBC % Seg Neutrophils # Man Lymphocytes # (Manual) Haptoglobin PT INR Fibrinogen Lupus Anticoagulant [place] PTT Baseline POC ABG pH POC ABG pCO2 POC ABG pO2 Sodium Potassium 3.5 L Chloride 95.7 L Carbon Dioxide BUN 55 H Creatinine 2.7 H Glucose 103 H POC Glucose 106 H Lactic Acid Uric Acid Calcium 7.1 L D Phosphorus Iron TIBC Erythropoietin Ferritin Total Bilirubin Direct Bilirubin AST ALT Alkaline Phosphatase Lactate Dehydrogenase C-Reactive Protein Serum Total Protein Total Protein Albumin Mgogf-1-Opysjozuz Abnorm Protein Band 1 PEP Interpretation Crossmatch 10/24/16 10/24/16 10/24/16 00:12 05:16 07:00 WBC 17.9 H RBC 2.12 L Hgb 6.5 L Hct 19.9 L* MCV MCHC RDW 19.3 H Plt Count 44 L Seg Neuts % (Manual) Lymphocytes % (Manual) Nucleated RBC % Seg Neutrophils # Man Lymphocytes # (Manual) Haptoglobin PT INR Fibrinogen Lupus Anticoagulant [place] PTT Baseline POC ABG pH POC ABG pCO2 POC ABG pO2 Sodium Potassium Chloride Carbon Dioxide BUN Creatinine Glucose POC Glucose 116 H 135 H Lactic Acid Uric Acid Calcium Phosphorus Iron TIBC Erythropoietin Ferritin Total Bilirubin Direct Bilirubin AST ALT Alkaline Phosphatase Lactate Dehydrogenase C-Reactive Protein Serum Total Protein Total Protein Albumin Ctokp-8-Rhlxrwjbx Abnorm Protein Band 1 PEP Interpretation Crossmatch 10/24/16 10/24/16 10/24/16 07:00 11:45 12:12 WBC RBC Hgb Hct MCV MCHC RDW Plt Count Seg Neuts % (Manual) Lymphocytes % (Manual) Nucleated RBC % Seg Neutrophils # Man Lymphocytes # (Manual) Haptoglobin PT INR Fibrinogen Lupus Anticoagulant [place] PTT Baseline POC ABG pH POC ABG pCO2 POC ABG pO2 Sodium Potassium Chloride 92.9 L Carbon Dioxide BUN 74 H Creatinine 3.3 H Glucose 136 H POC Glucose 177 H Lactic Acid Uric Acid Calcium 6.6 L Phosphorus Iron TIBC Erythropoietin Ferritin Total Bilirubin 2.10 H Direct Bilirubin AST 68 H ALT Alkaline Phosphatase 224 H Lactate Dehydrogenase C-Reactive Protein Serum Total Protein Total Protein 4.8 L Albumin 2.3 L Zisyb-5-Zpyrxudll Abnorm Protein Band 1 PEP Interpretation Crossmatch See Detail 10/24/16 10/24/16 10/24/16 16:30 16:30 17:28 WBC RBC Hgb Hct MCV MCHC RDW Plt Count Seg Neuts % (Manual) Lymphocytes % (Manual) Nucleated RBC % Seg Neutrophils # Man Lymphocytes # (Manual) Haptoglobin PT INR Fibrinogen Lupus Anticoagulant [place] PTT Baseline POC ABG pH POC ABG pCO2 POC ABG pO2 Sodium Potassium Chloride Carbon Dioxide BUN Creatinine Glucose POC Glucose 128 H Lactic Acid 3.00 H* Uric Acid Calcium Phosphorus Iron TIBC Erythropoietin Ferritin Total Bilirubin Direct Bilirubin AST ALT Alkaline Phosphatase Lactate Dehydrogenase C-Reactive Protein 7.40 H Serum Total Protein Total Protein Albumin Yxeid-4-Faaoocoju Abnorm Protein Band 1 PEP Interpretation Crossmatch 10/24/16 10/24/16 10/25/16 18:40 23:32 05:00 WBC 17.5 H RBC 2.99 L Hgb 9.1 L Hct 26.9 L D MCV MCHC RDW 17.7 H Plt Count 53 L Seg Neuts % (Manual) Lymphocytes % (Manual) Nucleated RBC % Seg Neutrophils # Man Lymphocytes # (Manual) Haptoglobin PT INR Fibrinogen Lupus Anticoagulant [place] PTT Baseline POC ABG pH POC ABG pCO2 POC ABG pO2 Sodium Potassium Chloride Carbon Dioxide BUN Creatinine Glucose POC Glucose 140 H Lactic Acid 3.10 H* Uric Acid Calcium Phosphorus Iron TIBC Erythropoietin Ferritin Total Bilirubin Direct Bilirubin AST ALT Alkaline Phosphatase Lactate Dehydrogenase C-Reactive Protein Serum Total Protein Total Protein Albumin Desos-9-Rzfgudszn Abnorm Protein Band 1 PEP Interpretation Crossmatch 10/25/16 10/25/16 10/25/16 05:00 05:22 11:58 WBC RBC Hgb Hct MCV MCHC RDW Plt Count Seg Neuts % (Manual) Lymphocytes % (Manual) Nucleated RBC % Seg Neutrophils # Man Lymphocytes # (Manual) Haptoglobin PT INR Fibrinogen Lupus Anticoagulant [place] PTT Baseline POC ABG pH POC ABG pCO2 POC ABG pO2 Sodium Potassium Chloride 91.6 L Carbon Dioxide BUN 89 H Creatinine 3.9 H Glucose 150 H POC Glucose 164 H 189 H Lactic Acid Uric Acid Calcium 6.9 L Phosphorus Iron TIBC Erythropoietin Ferritin Total Bilirubin Direct Bilirubin AST ALT Alkaline Phosphatase Lactate Dehydrogenase C-Reactive Protein Serum Total Protein Total Protein Albumin Wxqur-9-Mrdjtehhz Abnorm Protein Band 1 PEP Interpretation Crossmatch 10/25/16 10/25/16 10/26/16 17:56 23:12 04:00 WBC RBC Hgb Hct MCV MCHC RDW Plt Count Seg Neuts % (Manual) Lymphocytes % (Manual) Nucleated RBC % Seg Neutrophils # Man Lymphocytes # (Manual) Haptoglobin PT INR Fibrinogen Lupus Anticoagulant [place] PTT Baseline POC ABG pH POC ABG pCO2 POC ABG pO2 Sodium 135 L Potassium Chloride 90.7 L Carbon Dioxide BUN 64 H Creatinine 2.9 H Glucose 132 H POC Glucose 156 H 133 H Lactic Acid Uric Acid Calcium 7.3 L Phosphorus Iron TIBC Erythropoietin Ferritin Total Bilirubin Direct Bilirubin AST ALT Alkaline Phosphatase Lactate Dehydrogenase C-Reactive Protein Serum Total Protein Total Protein Albumin Kymld-5-Obenhwdub Abnorm Protein Band 1 PEP Interpretation Crossmatch 10/26/16 10/26/16 10/26/16 05:14 06:15 11:51 WBC 18.6 H RBC 3.15 L Hgb 9.6 L Hct 29.0 L MCV MCHC RDW 17.8 H Plt Count 71 L Seg Neuts % (Manual) 85.0 H Lymphocytes % (Manual) 1.0 L Nucleated RBC % Seg Neutrophils # Man 15.8 H Lymphocytes # (Manual) 0.2 L Haptoglobin PT INR Fibrinogen Lupus Anticoagulant [place] PTT Baseline POC ABG pH POC ABG pCO2 POC ABG pO2 Sodium Potassium Chloride Carbon Dioxide BUN Creatinine Glucose POC Glucose 130 H 139 H Lactic Acid Uric Acid Calcium Phosphorus Iron TIBC Erythropoietin Ferritin Total Bilirubin Direct Bilirubin AST ALT Alkaline Phosphatase Lactate Dehydrogenase C-Reactive Protein Serum Total Protein Total Protein Albumin Fasgw-5-Iofumsswv Abnorm Protein Band 1 PEP Interpretation Crossmatch 10/26/16 10/26/16 10/27/16 17:25 23:35 04:10 WBC 16.8 H RBC 3.38 L Hgb 10.1 L Hct 31.0 L MCV MCHC RDW 18.0 H Plt Count 77 L Seg Neuts % (Manual) 92.0 H Lymphocytes % (Manual) 1.0 L Nucleated RBC % 1.0 H Seg Neutrophils # Man 15.5 H Lymphocytes # (Manual) 0.2 L Haptoglobin PT INR Fibrinogen Lupus Anticoagulant [place] PTT Baseline POC ABG pH POC ABG pCO2 POC ABG pO2 Sodium Potassium Chloride Carbon Dioxide BUN Creatinine Glucose POC Glucose 118 H 145 H Lactic Acid Uric Acid Calcium Phosphorus Iron TIBC Erythropoietin Ferritin Total Bilirubin Direct Bilirubin AST ALT Alkaline Phosphatase Lactate Dehydrogenase C-Reactive Protein Serum Total Protein Total Protein Albumin Fdfjc-4-Bszuafrjs Abnorm Protein Band 1 PEP Interpretation Crossmatch 10/27/16 10/27/16 10/27/16 04:10 05:53 08:14 WBC RBC Hgb Hct MCV MCHC RDW Plt Count Seg Neuts % (Manual) Lymphocytes % (Manual) Nucleated RBC % Seg Neutrophils # Man Lymphocytes # (Manual) Haptoglobin PT 23.0 H INR 2.03 H Fibrinogen Lupus Anticoagulant [place] PTT Baseline POC ABG pH POC ABG pCO2 POC ABG pO2 Sodium Potassium Chloride 95.5 L Carbon Dioxide BUN 63 H Creatinine 2.8 H Glucose 112 H POC Glucose 127 H Lactic Acid Uric Acid Calcium 7.5 L Phosphorus Iron TIBC Erythropoietin Ferritin Total Bilirubin Direct Bilirubin AST ALT Alkaline Phosphatase Lactate Dehydrogenase C-Reactive Protein Serum Total Protein Total Protein Albumin Azfiq-8-Zyoikutzl Abnorm Protein Band 1 PEP Interpretation Crossmatch 10/27/16 10/27/16 10/27/16 11:56 17:47 23:55 WBC RBC Hgb Hct MCV MCHC RDW Plt Count Seg Neuts % (Manual) Lymphocytes % (Manual) Nucleated RBC % Seg Neutrophils # Man Lymphocytes # (Manual) Haptoglobin PT INR Fibrinogen Lupus Anticoagulant [place] PTT Baseline POC ABG pH POC ABG pCO2 POC ABG pO2 Sodium Potassium Chloride Carbon Dioxide BUN Creatinine Glucose POC Glucose 113 H 117 H 142 H Lactic Acid Uric Acid Calcium Phosphorus Iron TIBC Erythropoietin Ferritin Total Bilirubin Direct Bilirubin AST ALT Alkaline Phosphatase Lactate Dehydrogenase C-Reactive Protein Serum Total Protein Total Protein Albumin Xqjkp-7-Oyhcujixl Abnorm Protein Band 1 PEP Interpretation Crossmatch 10/28/16 10/28/16 10/28/16 05:45 05:45 11:44 WBC 16.6 H RBC 3.18 L Hgb 9.5 L Hct 29.3 L MCV MCHC RDW 17.6 H Plt Count 83 L Seg Neuts % (Manual) 87.0 H Lymphocytes % (Manual) 3.0 L Nucleated RBC % Seg Neutrophils # Man 14.4 H Lymphocytes # (Manual) 0.5 L Haptoglobin PT INR Fibrinogen Lupus Anticoagulant [place] PTT Baseline POC ABG pH POC ABG pCO2 POC ABG pO2 Sodium Potassium Chloride 94.6 L Carbon Dioxide 21 L BUN 90 H Creatinine 3.9 H Glucose 152 H POC Glucose 151 H Lactic Acid Uric Acid Calcium 6.9 L Phosphorus Iron TIBC Erythropoietin Ferritin Total Bilirubin Direct Bilirubin AST ALT Alkaline Phosphatase Lactate Dehydrogenase C-Reactive Protein Serum Total Protein Total Protein Albumin Hgdfp-7-Crbqcftnv Abnorm Protein Band 1 PEP Interpretation Crossmatch 10/28/16 10/28/16 10/29/16 17:31 23:47 04:53 WBC RBC Hgb Hct MCV MCHC RDW Plt Count Seg Neuts % (Manual) Lymphocytes % (Manual) Nucleated RBC % Seg Neutrophils # Man Lymphocytes # (Manual) Haptoglobin PT INR Fibrinogen Lupus Anticoagulant [place] PTT Baseline POC ABG pH POC ABG pCO2 POC ABG pO2 Sodium Potassium Chloride Carbon Dioxide BUN Creatinine Glucose POC Glucose 184 H 124 H 153 H Lactic Acid Uric Acid Calcium Phosphorus Iron TIBC Erythropoietin Ferritin Total Bilirubin Direct Bilirubin AST ALT Alkaline Phosphatase Lactate Dehydrogenase C-Reactive Protein Serum Total Protein Total Protein Albumin Rsfoa-9-Iwpcwswzl Abnorm Protein Band 1 PEP Interpretation Crossmatch 10/29/16 10/29/16 10/29/16 06:15 06:15 10:58 WBC 14.1 H RBC 3.15 L Hgb 9.6 L Hct 29.1 L MCV MCHC RDW 17.9 H Plt Count 73 L Seg Neuts % (Manual) 93.0 H Lymphocytes % (Manual) 4.0 L Nucleated RBC % Seg Neutrophils # Man 13.1 H Lymphocytes # (Manual) 0.6 L Haptoglobin PT INR Fibrinogen Lupus Anticoagulant LA PTT Baseline POC ABG pH POC ABG pCO2 POC ABG pO2 Sodium Potassium Chloride Carbon Dioxide BUN 58 H Creatinine 2.7 H Glucose 146 H POC Glucose 134 H Lactic Acid Uric Acid Calcium 7.4 L Phosphorus 5.00 H Iron TIBC Erythropoietin Ferritin Total Bilirubin Direct Bilirubin AST ALT Alkaline Phosphatase Lactate Dehydrogenase C-Reactive Protein Serum Total Protein Total Protein Albumin Kzdqh-4-Urlaumnuu Abnorm Protein Band 1 PEP Interpretation Crossmatch 10/29/16 10/29/16 10/30/16 17:06 23:28 05:16 WBC RBC Hgb Hct MCV MCHC RDW Plt Count Seg Neuts % (Manual) Lymphocytes % (Manual) Nucleated RBC % Seg Neutrophils # Man Lymphocytes # (Manual) Haptoglobin PT INR Fibrinogen Lupus Anticoagulant LA PTT Baseline POC ABG pH POC ABG pCO2 POC ABG pO2 Sodium Potassium Chloride Carbon Dioxide BUN Creatinine Glucose POC Glucose 158 H 133 H 147 H Lactic Acid Uric Acid Calcium Phosphorus Iron TIBC Erythropoietin Ferritin Total Bilirubin Direct Bilirubin AST ALT Alkaline Phosphatase Lactate Dehydrogenase C-Reactive Protein Serum Total Protein Total Protein Albumin Lgglu-3-Bzmpvfdir Abnorm Protein Band 1 PEP Interpretation Crossmatch 10/30/16 10/30/16 10/30/16 06:35 06:35 12:08 WBC 13.0 H RBC 3.08 L Hgb 9.3 L Hct 28.7 L MCV MCHC RDW 18.4 H Plt Count 73 L Seg Neuts % (Manual) Lymphocytes % (Manual) Nucleated RBC % Seg Neutrophils # Man Lymphocytes # (Manual) Haptoglobin PT INR Fibrinogen Lupus Anticoagulant LA PTT Baseline POC ABG pH POC ABG pCO2 POC ABG pO2 Sodium Potassium Chloride Carbon Dioxide BUN 86 H Creatinine 3.5 H Glucose 132 H POC Glucose 134 H Lactic Acid Uric Acid Calcium 7.1 L Phosphorus 5.90 H Iron TIBC Erythropoietin Ferritin Total Bilirubin Direct Bilirubin AST ALT Alkaline Phosphatase Lactate Dehydrogenase C-Reactive Protein Serum Total Protein Total Protein Albumin Rsrxo-3-Vjprboppg Abnorm Protein Band 1 PEP Interpretation Crossmatch 10/30/16 10/30/16 10/31/16 18:02 23:31 05:21 WBC RBC Hgb Hct MCV MCHC RDW Plt Count Seg Neuts % (Manual) Lymphocytes % (Manual) Nucleated RBC % Seg Neutrophils # Man Lymphocytes # (Manual) Haptoglobin PT INR Fibrinogen Lupus Anticoagulant LA PTT Baseline POC ABG pH POC ABG pCO2 POC ABG pO2 Sodium Potassium Chloride Carbon Dioxide BUN Creatinine Glucose POC Glucose 142 H 152 H 152 H Lactic Acid Uric Acid Calcium Phosphorus Iron TIBC Erythropoietin Ferritin Total Bilirubin Direct Bilirubin AST ALT Alkaline Phosphatase Lactate Dehydrogenase C-Reactive Protein Serum Total Protein Total Protein Albumin Njspv-7-Oxqytjkki Abnorm Protein Band 1 PEP Interpretation Crossmatch 10/31/16 10/31/16 10/31/16 06:21 06:21 12:12 WBC 11.9 H RBC 2.82 L Hgb 8.6 L Hct 26.4 L MCV MCHC RDW 17.8 H Plt Count 56 L Seg Neuts % (Manual) Lymphocytes % (Manual) 0 L Nucleated RBC % Seg Neutrophils # Man 10.9 H Lymphocytes # (Manual) 0.0 L Haptoglobin PT INR Fibrinogen Lupus Anticoagulant LA PTT Baseline POC ABG pH POC ABG pCO2 POC ABG pO2 Sodium Potassium Chloride Carbon Dioxide 21 L BUN 107 H Creatinine 4.2 H Glucose 137 H POC Glucose 142 H Lactic Acid Uric Acid Calcium 7.2 L Phosphorus 6.50 H Iron TIBC Erythropoietin Ferritin Total Bilirubin Direct Bilirubin AST ALT Alkaline Phosphatase Lactate Dehydrogenase C-Reactive Protein Serum Total Protein Total Protein Albumin Jrdmi-5-Ipsminqjq Abnorm Protein Band 1 PEP Interpretation Crossmatch 10/31/16 10/31/16 11/01/16 17:34 23:46 05:15 WBC RBC Hgb Hct MCV MCHC RDW Plt Count Seg Neuts % (Manual) Lymphocytes % (Manual) Nucleated RBC % Seg Neutrophils # Man Lymphocytes # (Manual) Haptoglobin PT INR Fibrinogen Lupus Anticoagulant LA PTT Baseline POC ABG pH POC ABG pCO2 POC ABG pO2 Sodium Potassium Chloride Carbon Dioxide BUN Creatinine Glucose POC Glucose 180 H 131 H 148 H Lactic Acid Uric Acid Calcium Phosphorus Iron TIBC Erythropoietin Ferritin Total Bilirubin Direct Bilirubin AST ALT Alkaline Phosphatase Lactate Dehydrogenase C-Reactive Protein Serum Total Protein Total Protein Albumin Lvucr-9-Lxlvpfgfx Abnorm Protein Band 1 PEP Interpretation Crossmatch 11/01/16 11/01/16 06:00 06:00 WBC RBC 2.66 L Hgb 8.1 L Hct 24.8 L MCV MCHC RDW 17.7 H Plt Count Seg Neuts % (Manual) Lymphocytes % (Manual) Nucleated RBC % Seg Neutrophils # Man Lymphocytes # (Manual) Haptoglobin PT INR Fibrinogen Lupus Anticoagulant LA PTT Baseline POC ABG pH POC ABG pCO2 POC ABG pO2 Sodium 134 L Potassium Chloride 95.6 L Carbon Dioxide BUN 90 H Creatinine 3.5 H Glucose 154 H POC Glucose Lactic Acid Uric Acid Calcium 7.1 L Phosphorus 5.50 H Iron TIBC Erythropoietin Ferritin Total Bilirubin Direct Bilirubin AST ALT Alkaline Phosphatase Lactate Dehydrogenase C-Reactive Protein Serum Total Protein Total Protein Albumin Opqid-8-Kkqldrwfv Abnorm Protein Band 1 PEP Interpretation Crossmatch Allied health notes reviewed: RT
[2016-11-01 10:48] LABS: Blastocytes % (Manual) 0 %
[2016-11-01 10:49] LABS: Anisocytosis 1+; Basophils % (Manual) 0 % (0.0-1.8); Eosinophils % (Manual) 0 % (0.0-4.3); Poikilocytosis Few; Total Cells Counted Percent 0
[2016-11-01 10:50] LABS: Large Platelets Few
[2016-11-01 10:51] LABS: Diff Status Complete; Platelet Estimate Appears Decreased
[2016-11-01 11:37] LABS: Platelet Count 47 K/mm3 (140-440)
[2016-11-01] MEDS: PEPCID PO SCH (13:26)
[2016-11-01] MEDS: LOPRESSOR PO SCH ×2 (13:27→22:37)
--- NOTE | 2016-11-01 14:16 | Progress Note ---
Assessment and Plan A/P: The patient is scheduled for a trach/PEG tomorrow. His current INR is 2.03 (10/27 ) and his platelets are 47,000. The ICU will transfuse him with FFP and platelets in preparation for the procedure. The INR will have to be <1.5 to proceed forward with the trach. Subjective Date of service: 11/01/16 Narrative: The patient remains intubated. Objective Vital Signs - 12hr 11/01/16 11/01/16 11/01/16 03:00 04:00 04:30 Temperature 99.2 F Pulse Rate 77 77 Pulse Rate [ 81 From Monitor] Respiratory 18 18 18 Rate Blood Pressure 94/65 91/64 O2 Sat by Pulse 99 99 99 Oximetry 11/01/16 11/01/16 11/01/16 04:51 05:00 06:00 Temperature Pulse Rate 81 76 75 Pulse Rate [ From Monitor] Respiratory 18 18 Rate Blood Pressure 91/64 94/64 91/64 O2 Sat by Pulse 100 98 99 Oximetry 11/01/16 11/01/16 11/01/16 07:00 08:00 08:09 Temperature 98.7 F Pulse Rate 77 81 81 Pulse Rate [ From Monitor] Respiratory 19 17 23 Rate Blood Pressure 99/69 108/77 108/77 O2 Sat by Pulse 99 100 99 Oximetry 11/01/16 11/01/16 11/01/16 09:00 10:00 12:00 Temperature 98.9 F Pulse Rate 79 79 Pulse Rate [ From Monitor] Respiratory 20 19 Rate Blood Pressure 103/74 100/72 O2 Sat by Pulse 96 100 Oximetry 11/01/16 11/01/16 12:03 13:27 Temperature Pulse Rate 80 84 Pulse Rate [ From Monitor] Respiratory 22 Rate Blood Pressure 106/76 97/68 O2 Sat by Pulse 100 Oximetry - Neck no masses, trachea midline - Respiratory clear to auscultation - Abdomen soft - Labs 11/01/16 06:00 11/01/16 06:00 Diabetes panel 11/01/16 Range/Units 06:00 Sodium 134 L (137-145) mmol/L Potassium 4.3 (3.6-5.0) mmol/L Chloride 95.6 L (98-107) mmol/L Carbon Dioxide 22 (22-30) mmol/L BUN 90 H (9-20) mg/dL Creatinine 3.5 H (0.8-1.5) mg/dL Glucose 154 H (75-100) mg/dL Calcium 7.1 L (8.4-10.2) mg/dL Calcium panel 11/01/16 Range/Units 06:00 Calcium 7.1 L (8.4-10.2) mg/dL Phosphorus 5.50 H (2.5-4.5) mg/dL Pituitary panel 11/01/16 Range/Units 06:00 Sodium 134 L (137-145) mmol/L Potassium 4.3 (3.6-5.0) mmol/L Chloride 95.6 L (98-107) mmol/L Carbon Dioxide 22 (22-30) mmol/L BUN 90 H (9-20) mg/dL Creatinine 3.5 H (0.8-1.5) mg/dL Glucose 154 H (75-100) mg/dL Calcium 7.1 L (8.4-10.2) mg/dL Adrenal panel 11/01/16 Range/Units 06:00 Sodium 134 L (137-145) mmol/L Potassium 4.3 (3.6-5.0) mmol/L Chloride 95.6 L (98-107) mmol/L Carbon Dioxide 22 (22-30) mmol/L BUN 90 H (9-20) mg/dL Creatinine 3.5 H (0.8-1.5) mg/dL Glucose 154 H (75-100) mg/dL Calcium 7.1 L (8.4-10.2) mg/dL
[2016-11-01] MEDS ORDERED: NACL 0.9% 100 ML IV PRN (14:45)
[2016-11-01] MEDS ORDERED: WATER FOR INJ (PF) 10 ML ONE (14:52)
[2016-11-01] MEDS ORDERED: WATER FOR INJ (PF) IV ONE (15:00)
[2016-11-01] MEDS: CATHFLO IV PRN (15:00)
--- NOTE | 2016-11-01 16:00 | Progress Note ---
Assessment and Plan Assessment and plan: Patient is a 61-year-old man without known past medical history who presented to the emergency department [facility] on 10/13/16, complaining of bilateral leg swelling that worsened for the last 4 days. He was found to have severe metabolic acidosis, creatinine was 14.5 with hyperkalemia, emergent Hemodialysis was done. He was also found to have severe pancytopenia, thrombocytopenia and Dr. 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 He was on bipap and was intubated 10/16/16, details are not readily available on why he needed to be intubated, no nursing note for 10/16. -Acute encephalopathy, not sedated, see Neurologist note below -AFIB WITH RVR: Cardiology is following -Group B strep bacteremia: JONATHAN done on 10/27/16 but plt count too low, probably when plt count over 50k -Acute Respiratory failure with hypoxia, intubated: continue mv -Pancytopenia [leukopenia, severe anemia, Woresening thrombocytopenia] heme/onc is following, s/p PLASMAPHERSIS, s/p PRBC transfusion, s/p plt -ARF, renal tubular stasis, poa -secondary coagulopathy -Lactic acidosis -Probable TTP, await [id number] results -hypoglycemia -Acute systolic congestive heart failure EF around 30% -SEVERE SEPSIS, poa per Neurologist, Dr. Bernardo "61 YO M Hx HTN admitted 10/13 w/ sepsis w/ bacteremia, severe metabolic acidosis , RAJESH requiring emergent HD, severe pancytopenia, ? DIC vs. HUS vs. TTP on Plasmapheresis and acute respiratory failure with hypoxia s/p intubation. There has not been cleared documented episode of cardiac arrest but pt was hypotensive during admission. On exam eyes open to stimlation, stuporous MS poor concentration, paucity of speech, intact brainstem reflexes but not able to follow midline/peripheral commands w/ grossly intact motor-sensory exam as withdraws from pain in UE but triple flexion LE but otherwise grossly intact symmetric neurologic exam, consistent with toxic metabolic infectious derangement as the etiology for neurologic decompensation. CTH 10/13 vague L anterior internal capsule hypodensities and chronic lacunes L brainstem and L periventricular white matter. B12/TSH/NH4 normal. 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 No Stone dispensed d/t RAJESH. TTE w/o endocarditis/thrombus. Recommendations: 1. Check f/u CTH and CTA H/N 2. Cont Infectious work up/medical management for UTI, PNA, cellulitis, bacteremia, etc. 3. Avoid hyponatremia, hypo/hyper-calcemia, hypo/hyperglycemia, acidosis, hypoxia/hypoxemia, hypercarbia/hypercapnia 4. Avoid institution of any psychoactive medications (e.g. antihistamines, anticholinergics, BZD, hypnotics, opiates) as able unless low doses of low potency antipsychotic needed for behavioral issues complicating medical care 5. Thiamine/Folate/CIWA protocol accordingly for any hx obtained to suggest EtOH withdrawal 6. Cont home meds-there is no neurologic indication to change CTH confirms multifocal hemorrhagic lesions but no midline shift/compression of brain structures/significant mass effect and is actually improved from prior MRI. CTA H/N w/o vascular lesion. JONATHAN w/o endocarditis or source of emboli. 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 Recs: 1. Avoid all blood thinners until hemorrhage stable 2. BP control: goal < 140/90 using prn Labetalol/Hydralyzine/Nicardipine. Cont home BP med. 3. Cont Infectious work up/medical management for UTI, PNA, cellulitis, bacteremia, etc. 3. Avoid hyponatremia, hypo/hyper-calcemia, hypo/hyperglycemia, acidosis, hypoxia/hypoxemia, hypercarbia/hypercapnia 4. Avoid institution of any psychoactive medications (e.g. antihistamines, anticholinergics, BZD, hypnotics, opiates) as able unless low doses of low potency antipsychotic needed for behavioral issues complicating medical care 5. Thiamine/Folate/CIWA protocol accordingly for any hx obtained to suggest EtOH withdrawal 6. Cont home meds-there is no neurologic indication to change 7. DVT Prophylaxis: SCDs/TEDs 8. Dispo: PT/OT/CM evaluations" History Interval history: Patient seen and examined. Follow up on respiratory failure, patient still intubated. Overnight uneventful. No cp, sob, n/v or severe headaches. Imaging, old records, testing, labs, nursing notes reviewed. Hospitalist Physical - Physical exam Narrative exam: GEN: Critically ill intubated but not sedated HEENT: Eyes are floating, ET tube in place CVS: irregular, NORMAL S1S2 LUNGS/CHEST: NORMAL CHEST EXPANSION B, GOOD AIR ENTRY B ABD: SOFT, POSITIVE BOWEL SOUNDS, NONDISTENDED, NO REBOUND OR GUARDING NEURO: CN 2-12 GROSSLY INTACT, he doesn't follow commands PSY: Unresponsive - Constitutional Vitals: Temp Pulse Resp BP Pulse Ox 98.9 F 78 16 102/73 99 11/01/16 12:00 11/01/16 14:58 11/01/16 14:58 11/01/16 14:58 11/01/16 14:58 General appearance: Present: severe distress Results - Labs CBC & Chem 7: 11/01/16 06:00 11/01/16 06:00 Labs: Laboratory Last Values WBC 8.4 K/mm3 (4.5-11.0) 11/01/16 06:00 RBC 2.66 M/mm3 (3.65-5.03) L 11/01/16 06:00 Hgb 8.1 gm/dl (11.8-15.2) L 11/01/16 06:00 Hct 24.8 % (35.5-45.6) L 11/01/16 06:00 MCV 93 fl (84-94) 11/01/16 06:00 MCH 30 pg (28-32) 11/01/16 06:00 MCHC 33 % (32-34) 11/01/16 06:00 RDW 17.7 % (13.2-15.2) H 11/01/16 06:00 Plt Count 47 K/mm3 (140-440) L 11/01/16 06:00 Lymph % (Auto) Thermoforming Operator 10/14/16 04:34 Trigg % (Auto) Thermoforming Operator 10/14/16 04:34 Eos % (Auto) Thermoforming Operator 10/14/16 04:34 Baso % (Auto) Thermoforming Operator 10/14/16 04:34 Lymph # Thermoforming Operator 10/14/16 04:34 Trigg # Thermoforming Operator 10/14/16 04:34 Eos # Thermoforming Operator 10/14/16 04:34 Baso # Thermoforming Operator 10/14/16 04:34 Add Manual Diff Complete 11/01/16 06:00 Total Counted 100 11/01/16 06:00 Seg Neutrophils % Thermoforming Operator 11/01/16 06:00 Seg Neuts % (Manual) 88.0 % (40.0-70.0) H 11/01/16 06:00 Band Neutrophils % 12.0 % 11/01/16 06:00 Lymphocytes % (Manual) 0 % (13.4-35.0) L 11/01/16 06:00 Reactive Lymphs % (Man) 0 % 11/01/16 06:00 Monocytes % (Manual) 0 % (0.0-7.3) 11/01/16 06:00 Eosinophils % (Manual) 0 % (0.0-4.3) 11/01/16 06:00 Basophils % (Manual) 0 % (0.0-1.8) 11/01/16 06:00 Metamyelocytes % 0 % 11/01/16 06:00 Myelocytes % 0 % 11/01/16 06:00 Promyelocytes % 0 % 11/01/16 06:00 Blast Cells % 0 % 11/01/16 06:00 Nucleated RBC % Not Reportable 11/01/16 06:00 Seg Neutrophils # Thermoforming Operator 10/14/16 04:34 Seg Neutrophils # Man 7.4 K/mm3 (1.8-7.7) 11/01/16 06:00 Band Neutrophils # 1.0 K/mm3 11/01/16 06:00 Lymphocytes # (Manual) 0.0 K/mm3 (1.2-5.4) L 11/01/16 06:00 Abs React Lymphs (Man) 0.0 K/mm3 11/01/16 06:00 Monocytes # (Manual) 0.0 K/mm3 (0.0-0.8) 11/01/16 06:00 Eosinophils # (Manual) 0.0 K/mm3 (0.0-0.4) 11/01/16 06:00 Basophils # (Manual) 0.0 K/mm3 (0.0-0.1) 11/01/16 06:00 Metamyelocytes # 0.0 K/mm3 11/01/16 06:00 Myelocytes # 0.0 K/mm3 11/01/16 06:00 Promyelocytes # 0.0 K/mm3 11/01/16 06:00 Blast Cells # 0.0 K/mm3 11/01/16 06:00 WBC Morphology Not Reportable 11/01/16 06:00 Hypersegmented Neuts Not Reportable 11/01/16 06:00 Hyposegmented Neuts Not Reportable 11/01/16 06:00 Hypogranular Neuts Not Reportable 11/01/16 06:00 Smudge Cells Not Reportable 11/01/16 06:00 Toxic Granulation Not Reportable 11/01/16 06:00 Toxic Vacuolation Not Reportable 11/01/16 06:00 Dohle Bodies Not Reportable 11/01/16 06:00 Pelger-Huet Anomaly Not Reportable 11/01/16 06:00 Madhu Rods Not Reportable 11/01/16 06:00 Platelet Estimate Appears decreased 11/01/16 06:00 Clumped Platelets Not Reportable 11/01/16 06:00 Plt Clumps, EDTA Not Reportable 11/01/16 06:00 Large Platelets Few 11/01/16 06:00 Giant Platelets Not Reportable 11/01/16 06:00 Platelet Satelliting Not Reportable 11/01/16 06:00 Plt Morphology Comment Not Reportable 11/01/16 06:00 RBC Morphology Not Reportable 11/01/16 06:00 Dimorphic RBCs Not Reportable 11/01/16 06:00 Polychromasia Not Reportable 11/01/16 06:00 Hypochromasia Not Reportable 11/01/16 06:00 Poikilocytosis Few 11/01/16 06:00 Basophilic Stippling Rare 10/21/16 10:30 Anisocytosis 1+ 11/01/16 06:00 Microcytosis Not Reportable 11/01/16 06:00 Macrocytosis Not Reportable 11/01/16 06:00 Spherocytes Not Reportable 11/01/16 06:00 Pappenheimer Bodies Not Reportable 11/01/16 06:00 Sickle Cells Not Reportable 11/01/16 06:00 Target Cells Not Reportable 11/01/16 06:00 Tear Drop Cells Not Reportable 11/01/16 06:00 Ovalocytes Not Reportable 11/01/16 06:00 Stomatocytes Few 10/28/16 05:45 Helmet Cells Not Reportable 11/01/16 06:00 Goodman-Vian Bodies Not Reportable 11/01/16 06:00 [place] Rings Not Reportable 11/01/16 06:00 Sabrina Cells Not Reportable 11/01/16 06:00 Bite Cells Not Reportable 11/01/16 06:00 Crenated Cell Not Reportable 11/01/16 06:00 Elliptocytes Not Reportable 11/01/16 06:00 Acanthocytes (Spur) Not Reportable 11/01/16 06:00 Rouleaux Not Reportable 11/01/16 06:00 Hemoglobin C Crystals Not Reportable 11/01/16 06:00 Schistocytes Not Reportable 11/01/16 06:00 Malaria parasites Not Reportable 11/01/16 06:00 ESR 77 mm/Hr (0-20) 10/14/16 04:34 Pal Bodies Not Reportable 11/01/16 06:00 Haptoglobin <15 mg/dL (43-212) L 10/15/16 12:00 Hem Pathologist Commnt No 11/01/16 06:00 PT 23.0 Sec. (12.2-14.9) H 10/27/16 08:14 INR 2.03 (0.87-1.13) H 10/27/16 08:14 Fibrinogen 557 mg/dl (211-480) H 10/14/16 09:58 Lupus Anticoagulant see below H 10/14/16 03:00 LA PTT Baseline 55 sec (<=40) H 10/14/16 03:00 dRVVT Confirm Interp Negative (Negative) 10/14/16 03:00 POC ABG pH 7.410 (7.35-7.45) 10/28/16 12:51 POC ABG pCO2 37.8 (35-45) 10/28/16 12:51 POC ABG pO2 93 (80-105) 10/28/16 12:51 POC ABG HCO3 24.0 10/28/16 12:51 POC ABG Total CO2 25 10/28/16 12:51 POC ABG O2 Sat 97 10/28/16 12:51 POC ABG Base Excess -1 10/28/16 12:51 FiO2 25 % 10/28/16 12:51 Sodium 134 mmol/L (137-145) L 11/01/16 06:00 Potassium 4.3 mmol/L (3.6-5.0) 11/01/16 06:00 Chloride 95.6 mmol/L (98-107) L 11/01/16 06:00 Carbon Dioxide 22 mmol/L (22-30) 11/01/16 06:00 Anion Gap 21 mmol/L 11/01/16 06:00 BUN 90 mg/dL (9-20) H 11/01/16 06:00 Creatinine 3.5 mg/dL (0.8-1.5) H 11/01/16 06:00 Estimated GFR 18 ml/min 11/01/16 06:00 BUN/Creatinine Ratio 25.71 % 11/01/16 06:00 Glucose 154 mg/dL (75-100) H 11/01/16 06:00 POC Glucose 169 (70-105) H 11/01/16 11:45 Lactic Acid 3.10 mmol/L (0.7-2.0) H* 10/24/16 18:40 Uric Acid 8.0 mg/dL (3.5-7.6) H 10/14/16 03:00 Calcium 7.1 mg/dL (8.4-10.2) L 11/01/16 06:00 Phosphorus 5.50 mg/dL (2.5-4.5) H 11/01/16 06:00 Iron 146 ug/dL (49-181) 10/15/16 05:35 TIBC 166 mcg/dL (250-450) L 10/15/16 05:35 Erythropoietin 148.2 mIU/mL (2.6-18.5) H 10/19/16 14:15 Ferritin 9562.0 ng/mL (13.0-400.0) H 10/15/16 05:35 Total Bilirubin 2.10 mg/dL (0.1-1.2) H 10/24/16 07:00 Direct Bilirubin 1.1 mg/dL (0-0.2) H 10/14/16 09:58 Indirect Bilirubin 0.2 mg/dL 10/14/16 09:58 AST 68 units/L (5-40) H 10/24/16 07:00 ALT 46 units/L (7-56) 10/24/16 07:00 Alkaline Phosphatase 224 units/L (35-129) H 10/24/16 07:00 Ammonia 32.0 umol/L (25-60) 10/19/16 14:15 Lactate Dehydrogenase 3871 units/L (91-180) H 10/15/16 05:35 Troponin T 0.079 ng/mL (0.00-0.029) H 10/13/16 10:14 C-Reactive Protein 7.40 mg/dL (0.00-1.30) H 10/24/16 16:30 NT-Pro-B Natriuret Pep > 37921 pg/mL (0-900) H 10/13/16 10:14 Serum Total Protein 5.6 g/dL (6.1-8.1) L 10/13/16 14:50 Total Protein 4.8 g/dL (6.3-8.2) L 10/24/16 07:00 Albumin 2.3 g/dL (3.9-5) L 10/24/16 07:00 Albumin/Globulin Ratio 0.9 % 10/24/16 07:00 Dhyvb-4-Rryhscpbo 0.5 g/dL (0.2-0.3) H 10/13/16 14:50 Pjhef-3-Dpirkxuza 0.6 g/dL (0.5-0.9) 10/13/16 14:50 Beta Globulins 0.3 g/dL (0.2-0.5) 10/13/16 14:50 Gamma Globulins 1.7 g/dL (0.8-1.7) 10/13/16 14:50 Abnorm Protein Band 1 1.4 g/dL H 10/13/16 14:50 PEP Interpretation see below H 10/13/16 14:50 Triglycerides 119 mg/dL (2-149) 10/13/16 10:14 Cholesterol 71 mg/dL (50-199) 10/13/16 10:14 LDL Cholesterol Direct 41 mg/dL (50-130) L 10/13/16 10:14 HDL Cholesterol 7 mg/dL (40-59) L 10/13/16 10:14 Cholesterol/HDL Ratio 10.14 % 10/13/16 10:14 Lipase 21 units/L (13-60) 10/15/16 05:35 Vitamin B12 893.9 pg/mL (211-911) 10/14/16 03:00 TSH 0.526 mlU/mL (0.270-4.200) 10/19/16 14:15 Random Vancomycin 19.2 ug/mL (0-40.0) 11/01/16 06:00 IgG 1040 mg/dL (694-1618) 10/19/16 14:15 IgA 149 mg/dL (81-463) 10/19/16 14:15 IgM 53 mg/dL (48-271) 10/19/16 14:15 XU Screen Negative (Negative) 10/13/16 14:50 Proteinase 3 (PR3) Ab <1.0 AI (<1.0) 10/13/16 14:50 Myeloperoxidase Ab <1.0 AI (<1.0) 10/13/16 14:50 Glomerular Base Mem IgG <1.0 AI (<1.0) 10/13/16 14:50 Complement C3 101 mg/dL (90-180) 10/13/16 14:50 Complement C4 16 mg/dL (16-47) 10/13/16 14:50 Hep Bs Antigen Non-reactive (Negative) 10/13/16 14:50 Hepatitis C Antibody Non-reactive (NonReactive) 10/13/16 14:50 HIV 1&2 Antibody Rapid Non react (Non React) 10/13/16 14:50 HIV P24 Antigen Non react (Non React) 10/13/16 14:50 Schistocytes Smear None seen 10/15/16 12:00 Flow Intrp 16+ Markers Scanned into [facility] rec 10/14/16 11:30 Flow Cytometry Interp Scanned into [facility] rec 10/14/16 11:30 Blood Type O POSITIVE 10/24/16 11:45 Antibody Screen TNR 10/24/16 11:45 MADIHA Antibody Screen Negative 10/24/16 11:45 Direct Antiglob Test Negative 10/14/16 03:00 ELAINE, Poly Interpret Negative 10/14/16 03:00 Crossmatch See Detail 10/24/16 11:45
[2016-11-01] MEDS ORDERED: NACL 0.9% 1000 ML 2,000 ML ONE (17:17)
[2016-11-01] MEDS: HEPARIN IV PRN (18:30)
--- NOTE | 2016-11-01 23:43 | Consultation ---
History of Present Illness - Reason for Consult Consult date: 11/01/16 - History of Present Illness Patient seen/examined, labs reviewed, no family around. I have not seen the [id number] result yet.Patient still remains non responsive. Past History Past Medical History: hypertension, other (Had shingles in November 25-) Past Surgical History: No surgical history Social history: , full code, other (Patienti s and lives with his ). denies: smoking, alcohol abuse, prescription drug abuse, IV drug use Family history: no significant family history Medications and Allergies Allergies Allergy/AdvReac Type Severity Reaction Status Date / Time No Known Allergies Allergy Unverified 10/13/16 09:41 Home Medications Medication Instructions Recorded Confirmed Last Taken Type Naproxen Sodium [Aleve TAB] 2 tab PO Q8H PRN 10/13/16 10/13/16 10/12/16 14:00 History Active Meds: Active Medications Acetaminophen (Tylenol) 1,000 mg SD Q4H PRN PRN Reason: Pain, Mild (1-3) Last Admin: 10/20/16 15:40 Dose: 1,000 mg Acetaminophen (Tylenol) 650 mg FEEDTUBE Q6H PRN PRN Reason: Pain, Mild (1-3) Last Admin: 10/24/16 10:56 Dose: 650 mg Alteplase, Recombinant (Cathflo) 4 mg IV ROD PRN PRN Reason: hemodialysis Last Admin: 11/01/16 15:00 Dose: 4 mg Lipase/Protease/Amylase (Pancreaze Dr 10,500 Unit) 1 each FEEDTUBE PRN PRN PRN Reason: For Clogged Feeding Tube Dextrose (D50w (25gm)) 25 ml IV PRN PRN PRN Reason: Hypoglycemia Last Admin: 10/18/16 07:20 Dose: 25 ml Diphenhydramine HCl (Benadryl) 50 mg IV Q6H PRN PRN Reason: Itching Last Admin: 10/24/16 10:57 Dose: 50 mg Famotidine (Pepcid) 20 mg PO Q24H EDWINA Last Admin: 11/01/16 13:26 Dose: 20 mg Haloperidol Lactate (Haldol) 5 mg IM Q6H PRN PRN Reason: Agitation Last Admin: 10/14/16 21:11 Dose: 5 mg Heparin Sodium (Porcine) (Heparin) 10,000 unit IV ROD PRN PRN Reason: for plasmapheresis- vascath Last Admin: 11/01/16 18:30 Dose: 10,000 unit Hydrocortisone Sodium Succinate (Solu-Cortef) 60 mg IV Q8HR [facility] Last Admin: 11/01/16 22:31 Dose: 60 mg Hydrophilic Ointment (Vaseline Lip Therapy) 1 applic TP Q2H PRN PRN Reason: Dry Lips Propofol (Diprivan 10 Mg/Ml) 1,000 mg in 100 mls @ 1.827 mls/hr IV TITR EDWINA; 5 MCG/KG/MIN PRN Reason: Protocol Last Titration: 10/20/16 10:12 Dose: 0 mcg/kg/min, 0 mls/hr Fentanyl Citrate (Fentanyl Drip Premix) 2,000 mcg in 100 mls @ 3.045 mls/hr IV TITR EDWINA; 1 MCG/KG/HR PRN Reason: Protocol Sodium Chloride (Nacl 0.9%) 100 mls @ 999 mls/hr IV ROD PRN PRN Reason: Hypotension Insulin Aspart (Novolog) 0 units SUB-Q Q6HR [facility] PRN Reason: Protocol Last Admin: 11/01/16 06:15 Dose: Not Given Labetalol HCl (Normodyne) 20 mg IV Q6H PRN PRN Reason: Hypertension Last Admin: 10/25/16 05:33 Dose: 20 mg Loperamide HCl (Imodium A-D) 2 mg PO Q2H PRN PRN Reason: Diarrhea Last Admin: 10/31/16 18:28 Dose: 2 mg Metoprolol Tartrate (Lopressor) 25 mg PO BID [facility] Last Admin: 11/01/16 22:37 Dose: 25 mg Multi-Ingred Cream/Lotion/Oil/Oint (Artificial Tears Ophth Oint) 1 applic OU Q4H PRN PRN Reason: Dry Eye(s) Ondansetron HCl (Zofran) 4 mg IV Q8H PRN PRN Reason: Nausea And Vomiting Phytonadione (Vitamin K (Adult Only)) 10 mg SUB-Q Q8H [facility] Stop: 11/02/16 05:01 Last Admin: 11/01/16 22:42 Dose: 10 mg Simple Syrup (Simple Syrup) 15 ml FEEDTUBE PRN PRN PRN Reason: Hypoglycemia Simple Syrup (Simple Syrup) 30 ml FEEDTUBE PRN PRN PRN Reason: Hypoglycemia Sodium Bicarbonate (Sodium Bicarbonate) 325 mg FEEDTUBE PRN PRN PRN Reason: For Clogged Feeding Tube Sodium Chloride (Sodium Chloride Flush Syringe 10 Ml) 10 ml IV PRN PRN PRN Reason: LINE FLUSH Last Admin: 10/17/16 20:45 Dose: 10 ml Vancomycin HCl (Vancomycin Pharmacy To Dose) 1 each IV PKCONSULT EDWINA PRN Reason: Protocol Exam - Constitutional Vitals: Temp Pulse Resp BP Pulse Ox 98.7 F 85 28 H 97/64 99 11/01/16 20:42 11/01/16 23:15 11/01/16 22:00 11/01/16 23:15 11/01/16 23:15 General appearance: Present: severe distress, well-nourished - EENT Eyes: Present: PERRL ENT: hearing intact, clear oral mucosa - Neck Neck: Present: supple, normal ROM - Respiratory Respiratory: bilateral: other (intubated) - Cardiovascular Heart Sounds: Present: S1 & S2. Absent: rub, click - Extremities Extremities: pulses symmetrical, No edema Peripheral Pulses: within normal limits - Abdominal General gastrointestinal: Present: soft, non-tender, non-distended, normal bowel sounds Male genitourinary: Present: deferred - Rectal Rectal Exam: deferred - Integumentary Integumentary: Present: clear, warm, dry - Psychiatric Psychiatric: intact judgment & insight Results - Labs CBC & Chem 7: 11/01/16 06:00 11/01/16 06:00 Labs: Abnormal lab results 10/31/16 10/31/16 11/01/16 Range/Units 12:12 23:46 05:15 RBC (3.65-5.03) M/mm3 Hgb (11.8-15.2) gm/dl Hct (35.5-45.6) % RDW (13.2-15.2) % Plt Count (140-440) K/mm3 Seg Neuts % (Manual) (40.0-70.0) % Lymphocytes % (Manual) (13.4-35.0) % Lymphocytes # (Manual) (1.2-5.4) K/mm3 Sodium (137-145) mmol/L Chloride (98-107) mmol/L BUN (9-20) mg/dL Creatinine (0.8-1.5) mg/dL Glucose (75-100) mg/dL POC Glucose 142 H 131 H 148 H (70-105) Lactic Acid (0.7-2.0) mmol/L Calcium (8.4-10.2) mg/dL Phosphorus (2.5-4.5) mg/dL 11/01/16 11/01/16 11/01/16 Range/Units 06:00 06:00 11:45 RBC 2.66 L (3.65-5.03) M/mm3 Hgb 8.1 L (11.8-15.2) gm/dl Hct 24.8 L (35.5-45.6) % RDW 17.7 H (13.2-15.2) % Plt Count 47 L (140-440) K/mm3 Seg Neuts % (Manual) 88.0 H (40.0-70.0) % Lymphocytes % (Manual) 0 L (13.4-35.0) % Lymphocytes # (Manual) 0.0 L (1.2-5.4) K/mm3 Sodium 134 L (137-145) mmol/L Chloride 95.6 L (98-107) mmol/L BUN 90 H (9-20) mg/dL Creatinine 3.5 H (0.8-1.5) mg/dL Glucose 154 H (75-100) mg/dL POC Glucose 169 H (70-105) Lactic Acid (0.7-2.0) mmol/L Calcium 7.1 L (8.4-10.2) mg/dL Phosphorus 5.50 H (2.5-4.5) mg/dL 11/01/16 11/01/16 Range/Units 18:33 20:55 RBC (3.65-5.03) M/mm3 Hgb (11.8-15.2) gm/dl Hct (35.5-45.6) % RDW (13.2-15.2) % Plt Count (140-440) K/mm3 Seg Neuts % (Manual) (40.0-70.0) % Lymphocytes % (Manual) (13.4-35.0) % Lymphocytes # (Manual) (1.2-5.4) K/mm3 Sodium (137-145) mmol/L Chloride (98-107) mmol/L BUN (9-20) mg/dL Creatinine (0.8-1.5) mg/dL Glucose (75-100) mg/dL POC Glucose 128 H (70-105) Lactic Acid 3.10 H* (0.7-2.0) mmol/L Calcium (8.4-10.2) mg/dL Phosphorus (2.5-4.5) mg/dL Assessment and Plan - Patient Problems (1) Anemia Current Visit: Yes Status: Acute Qualifiers: Anemia type: unspecified type Iron deficiency anemia type: I Vitamin B12 deficiency anemia type: V Folate deficiency anemia type: F Bone marrow failure anemia type: B Hemolytic anemia type: H Other causes of anemia: O Qualified Code(s): D64.9 - Anemia, unspecified Plan to address problem: post transfusion. remains stable. (2) Leucopenia Current Visit: Yes Status: Acute Qualifiers: Leukopenia type: unspecified Neutropenia type: N Qualified Code(s): D72.819 - Decreased white blood cell count, unspecified Plan to address problem: same as above. resolved. Same as above (3) Renal failure Current Visit: Yes Status: Acute Qualifiers: Renal failure chronicity: acute Acute renal failure type: unspecified Chronic kidney disease stage: C Qualified Code(s): N17.9 - Acute kidney failure, unspecified Plan to address problem: See w/up, and renal service. 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
[2016-11-02] MEDS: NOVOLOG SUB-Q SCH ×4 (00:10→18:00)
[2016-11-02 05:45] LABS: Hematocrit 25.1 % (35.5-45.6); Hemoglobin 8.2 gm/dl (11.8-15.2); Mean Corpuscular HGB Conc 33 % (32-34); Mean Corpuscular Hemoglobin 31 pg (28-32); Mean Corpuscular Volume 93 fl (84-94); Red Blood Count 2.69 M/mm3 (3.65-5.03); Red Cell Distribution Width 16.9 % (13.2-15.2); White Blood Count 7.8 K/mm3 (4.5-11.0)
[2016-11-02 05:54] LABS: Platelet Count 42 K/mm3 (140-440)
[2016-11-02 06:27] LABS: BUN/Creatinine Ratio 23.92; Calcium 7.3 mg/dL (8.4-10.2); Chloride 97.7 mmol/L (98-107); Phosphorous 4.9 mg/dL (2.5-4.5); Potassium 4.4 mmol/L (3.6-5.0)
[2016-11-02 06:36] LABS: Anisocytosis 1+; Basophils % (Manual) 0 % (0.0-1.8); Blastocytes % (Manual) 0 %; Eosinophils % (Manual) 0 % (0.0-4.3); Spherocytes Few; Total Cells Counted Percent 0
[2016-11-02 06:38] LABS: Diff Status Complete; Platelet Estimate Appears Decreased
[2016-11-02] MEDS: VITAMIN K (ADULT ONLY) SUB-Q SCH (07:04)
[2016-11-02] MEDS: CATHFLO IV PRN (09:37)
--- NOTE | 2016-11-02 09:54 | Anesthesia Consultation ---
Anesthesia Consult and Med Hx Date of service: 11/02/16 - Airway ROM Head & Neck: Adequate Mental/Hyoid Distance: Adequate Mallampati Class: Class IV (unable to tell, intubated) - Pulmonary Exam CTA: Yes - Cardiac Exam Cardiac Exam: RRR - Pre-Operative Health Status ASA Pre-Surgery Classification: ASA4 Proposed Anesthetic Plan: General, MAC - Pulmonary Hx Respiratory Symptoms: Yes (intubated) - Cardiovascular System Hx Hypertension: Yes (EF 30%) Hx Cardia Arrhythmia: Yes (ATRIAL FIBRILLATION) Hx Pacemaker: No Hx Internal Defibrillator: No - Central Nervous System Hx Neuromuscular Disorder: Yes (ACUTE ENCEPHALOPATHY) - Endocrine Hx Renal Disease: Yes (ON DIALYSIS) - Hematic Hx Anemia: Yes (thrombocytopenia, coagulopathy) Hx Sickle Cell Disease: No - Other Systems Hx Cancer: No
[2016-11-02 10:05] LABS: INR 1.69 (0.87-1.13)
[2016-11-02 10:14] LABS: Hematocrit 26.5 % (35.5-45.6); Hemoglobin 8.7 gm/dl (11.8-15.2); Mean Corpuscular HGB Conc 33 % (32-34); Mean Corpuscular Hemoglobin 31 pg (28-32); Mean Corpuscular Volume 94 fl (84-94); Red Blood Count 2.83 M/mm3 (3.65-5.03); Red Cell Distribution Width 17.4 % (13.2-15.2); White Blood Count 9.7 K/mm3 (4.5-11.0)
[2016-11-02 10:15] LABS: Platelet Count 46 K/mm3 (140-440)
[2016-11-02] MEDS: LOPRESSOR PO SCH ×2 (10:36→21:50)
[2016-11-02] MEDS: PEPCID PO SCH (10:37)
--- NOTE | 2016-11-02 11:15 | Progress Note ---
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) - continue HD/UF per nephrology recs - follow I's and O's (no urine in do bag) - correct electrolytes prn - avoid nephrotoxins - per nephrology otherwise (3) Metabolic acidosis Current Visit: Yes Status: Acute Plan to address problem: - mixed etiology - Lactic Acidosis component resolved - sepsis may have been driving force for that - RAJESH component - continue HD/UF per nephrology prescription - complete Anti-infectives per ID recs (4) CHF (congestive heart failure) Current Visit: Yes Status: Acute Qualifiers: Congestive heart failure type: C Congestive heart failure chronicity: C Plan to address problem: - ECHO consistent with possible infiltrating disease - cardiology consulted - EF 30& - s/p volume resuscitation for sepsis - per cardiology otherwise - JONATHAN negative (5) Pancytopenia Current Visit: Yes Status: Acute Plan to address problem: - hematology on case - continuing plasmapheresis - may need bone marrow evaluation - follow platelet count (seems to be trending back down) (6) Acute encephalopathy Current Visit: Yes Status: Acute Plan to address problem: - CT brain negative - likely toxic-metabolic encephalopathy element also - MRI abnormal - neurology evaluation ongoing - following clinically (7) Hypoglycemia Current Visit: Yes Status: Acute Plan to address problem: - improved - suspect sepsis related element - will continue systemic steroids but taper - also continue enteral nutrition - glycemic control via SSI at this point (8) Sepsis syndrome Current Visit: Yes Status: Acute Plan to address problem: - s/p antibiotic course - ID on case - CRP and lactate much improved - JONATHAN negative - following clinically - c-diff assay negative - Anti-infectives per ID recs (9) Discharge planning issues Current Visit: Yes Status: Acute Plan to address problem: - he remains critically ill on life sustaining interventions including MVS and at risk for further deterioration including ...33' CCT Subjective Date of service: 11/02/16 Principal diagnosis: Sepsis Syndrome; MAHA; RAJESH; CHF; TTP Interval history: Seen and examined at bedside; 24 hour events reviewed; nursing and respiratory care staff consulted; no adverse overnight events reported to me; for trach and PEG today; no emesis or overt aspiration; AMS is persistent Objective Vital Signs - 12hr 11/01/16 11/02/16 11/02/16 23:15 00:00 01:00 Temperature 98.9 F Pulse Rate 85 81 77 Respiratory 18 18 Rate Blood Pressure 97/64 94/65 90/62 O2 Sat by Pulse 99 99 96 Oximetry 11/02/16 11/02/16 11/02/16 02:00 03:00 03:47 Temperature Pulse Rate 78 75 78 Respiratory 18 18 Rate Blood Pressure 102/67 96/68 102/76 O2 Sat by Pulse 99 100 100 Oximetry 11/02/16 11/02/16 11/02/16 04:00 05:00 06:00 Temperature 99.0 F Pulse Rate 82 82 76 Respiratory 18 18 18 Rate Blood Pressure 115/82 112/84 113/85 O2 Sat by Pulse 98 99 99 Oximetry 11/02/16 11/02/16 11/02/16 06:35 07:00 08:00 Temperature 98.6 F Pulse Rate 81 79 78 Respiratory 20 20 Rate Blood Pressure 118/88 119/88 117/87 O2 Sat by Pulse 100 100 100 Oximetry 11/02/16 10:36 Temperature Pulse Rate 141 H Respiratory Rate Blood Pressure 103/71 O2 Sat by Pulse Oximetry Constitutional: no acute distress, other (encephalopathic really) Eyes: non-icteric ENT: oropharynx moist Neck: supple, no lymphadenopathy Effort: normal Ascultation: Bilateral: diminished breath sounds, rales (scant in bases) Cardiovascular: irregular rhythm Gastrointestinal: normoactive bowel sounds, soft, non-tender, non-distended Integumentary: normal Extremities: no cyanosis, pulses normal, no ischemia or petechiae, edema Neurologic: non-focal exam (grossly), pupils equal and round, unable to assess Psychiatric: other (unable to assess) CBC and BMP: 11/03/16 03:25 11/03/16 03:25 ABG, PT/INR, D-dimer: ABG POC ABG pH 7.410 (7.35-7.45) 10/28/16 12:51 POC ABG pCO2 37.8 (35-45) 10/28/16 12:51 POC ABG pO2 93 (80-105) 10/28/16 12:51 POC ABG HCO3 24.0 10/28/16 12:51 POC ABG Total CO2 25 10/28/16 12:51 POC ABG O2 Sat 97 10/28/16 12:51 PT/INR, D-dimer PT 19.9 Sec. (12.2-14.9) H 11/02/16 09:26 INR 1.69 (0.87-1.13) H 11/02/16 09:26 Abnormal lab findings: Abnormal Labs 10/13/16 10/13/16 10/13/16 14:50 21:40 22:05 WBC RBC Hgb Hct MCV MCHC RDW Plt Count Seg Neuts % (Manual) Lymphocytes % (Manual) Nucleated RBC % Seg Neutrophils # Man Lymphocytes # (Manual) Haptoglobin PT INR Fibrinogen Lupus Anticoagulant LA PTT Baseline POC ABG pH POC ABG pCO2 POC ABG pO2 Sodium Potassium Chloride Carbon Dioxide BUN Creatinine Glucose POC Glucose 52 L 43 L Lactic Acid Uric Acid Calcium Phosphorus Iron TIBC Erythropoietin Ferritin Total Bilirubin Direct Bilirubin AST ALT Alkaline Phosphatase Lactate Dehydrogenase C-Reactive Protein Serum Total Protein 5.6 L Total Protein Albumin 2.2 L Tuykn-4-Gychrvxgj 0.5 H Abnorm Protein Band 1 1.4 H PEP Interpretation see below H Crossmatch 10/13/16 10/14/16 10/14/16 23:18 03:00 03:00 WBC RBC Hgb Hct MCV MCHC RDW Plt Count Seg Neuts % (Manual) Lymphocytes % (Manual) Nucleated RBC % Seg Neutrophils # Man Lymphocytes # (Manual) Haptoglobin PT INR Fibrinogen Lupus Anticoagulant see below H LA PTT Baseline 55 H POC ABG pH POC ABG pCO2 POC ABG pO2 Sodium Potassium Chloride Carbon Dioxide BUN Creatinine Glucose POC Glucose 113 H Lactic Acid Uric Acid Calcium Phosphorus Iron TIBC Erythropoietin Ferritin Total Bilirubin Direct Bilirubin AST ALT Alkaline Phosphatase Lactate Dehydrogenase 406 H C-Reactive Protein Serum Total Protein Total Protein Albumin Csxlp-3-Ikphlyzjk Abnorm Protein Band 1 PEP Interpretation Crossmatch 10/14/16 10/14/16 10/14/16 03:00 03:00 04:34 WBC 1.3 L* RBC 2.33 L Hgb 7.3 L Hct 21.7 L MCV MCHC RDW 19.8 H Plt Count 99 L Seg Neuts % (Manual) Lymphocytes % (Manual) 3.0 L Nucleated RBC % Seg Neutrophils # Man 0.9 L Lymphocytes # (Manual) 0.0 L Haptoglobin PT INR Fibrinogen Lupus Anticoagulant LA PTT Baseline POC ABG pH POC ABG pCO2 POC ABG pO2 Sodium Potassium Chloride Carbon Dioxide 18 L BUN 73 H Creatinine 9.8 H Glucose 59 L POC Glucose Lactic Acid Uric Acid 8.0 H Calcium 8.2 L Phosphorus 6.60 H Iron 13 L TIBC 160 L Erythropoietin Ferritin Total Bilirubin Direct Bilirubin AST ALT Alkaline Phosphatase Lactate Dehydrogenase C-Reactive Protein Serum Total Protein Total Protein Albumin Kzkdy-5-Avxbmbzny Abnorm Protein Band 1 PEP Interpretation Crossmatch 10/14/16 10/14/16 10/14/16 05:27 06:29 07:34 WBC RBC Hgb Hct MCV MCHC RDW Plt Count Seg Neuts % (Manual) Lymphocytes % (Manual) Nucleated RBC % Seg Neutrophils # Man Lymphocytes # (Manual) Haptoglobin PT INR Fibrinogen Lupus Anticoagulant LA PTT Baseline POC ABG pH POC ABG pCO2 POC ABG pO2 Sodium Potassium Chloride Carbon Dioxide BUN Creatinine Glucose POC Glucose < 40 L 63 L < 40 L Lactic Acid Uric Acid Calcium Phosphorus Iron TIBC Erythropoietin Ferritin Total Bilirubin Direct Bilirubin AST ALT Alkaline Phosphatase Lactate Dehydrogenase C-Reactive Protein Serum Total Protein Total Protein Albumin Qtnvt-8-Xnffgpwao Abnorm Protein Band 1 PEP Interpretation Crossmatch 10/14/16 10/14/16 10/14/16 09:58 09:58 09:58 WBC RBC Hgb Hct MCV MCHC RDW Plt Count Seg Neuts % (Manual) Lymphocytes % (Manual) Nucleated RBC % Seg Neutrophils # Man Lymphocytes # (Manual) Haptoglobin 218 H PT INR Fibrinogen 557 H Lupus Anticoagulant LA PTT Baseline POC ABG pH POC ABG pCO2 POC ABG pO2 Sodium Potassium Chloride Carbon Dioxide BUN Creatinine Glucose POC Glucose Lactic Acid Uric Acid Calcium Phosphorus Iron TIBC Erythropoietin Ferritin Total Bilirubin 1.30 H Direct Bilirubin 1.1 H AST ALT Alkaline Phosphatase Lactate Dehydrogenase C-Reactive Protein Serum Total Protein Total Protein Albumin Agicw-3-Mpngxhoxd Abnorm Protein Band 1 PEP Interpretation Crossmatch 10/14/16 10/14/16 10/14/16 10:57 11:15 12:52 WBC RBC Hgb Hct MCV MCHC RDW Plt Count Seg Neuts % (Manual) Lymphocytes % (Manual) Nucleated RBC % Seg Neutrophils # Man Lymphocytes # (Manual) Haptoglobin PT INR Fibrinogen Lupus Anticoagulant LA PTT Baseline POC ABG pH POC ABG pCO2 POC ABG pO2 Sodium Potassium Chloride Carbon Dioxide BUN Creatinine Glucose POC Glucose < 40 L < 40 L Lactic Acid 9.60 H* Uric Acid Calcium Phosphorus Iron TIBC Erythropoietin Ferritin Total Bilirubin Direct Bilirubin AST ALT Alkaline Phosphatase Lactate Dehydrogenase C-Reactive Protein Serum Total Protein Total Protein Albumin Xkhjw-6-Bnpftakra Abnorm Protein Band 1 PEP Interpretation Crossmatch 10/14/16 10/14/16 10/14/16 12:52 13:17 14:12 WBC RBC Hgb Hct MCV MCHC RDW Plt Count Seg Neuts % (Manual) Lymphocytes % (Manual) Nucleated RBC % Seg Neutrophils # Man Lymphocytes # (Manual) Haptoglobin PT INR Fibrinogen Lupus Anticoagulant LA PTT Baseline POC ABG pH POC ABG pCO2 POC ABG pO2 Sodium Potassium Chloride Carbon Dioxide BUN Creatinine Glucose POC Glucose < 40 L < 40 L Lactic Acid Uric Acid Calcium Phosphorus Iron TIBC Erythropoietin Ferritin Total Bilirubin Direct Bilirubin AST ALT Alkaline Phosphatase Lactate Dehydrogenase C-Reactive Protein 40.40 H Serum Total Protein Total Protein Albumin Qflix-0-Jotmjbrvm Abnorm Protein Band 1 PEP Interpretation Crossmatch 10/14/16 10/14/16 10/14/16 15:02 15:33 15:33 WBC RBC Hgb Hct MCV MCHC RDW Plt Count Seg Neuts % (Manual) Lymphocytes % (Manual) Nucleated RBC % Seg Neutrophils # Man Lymphocytes # (Manual) Haptoglobin PT INR Fibrinogen Lupus Anticoagulant LA PTT Baseline POC ABG pH POC ABG pCO2 POC ABG pO2 Sodium Potassium Chloride Carbon Dioxide BUN Creatinine Glucose 19 L* POC Glucose < 40 L Lactic Acid 11.60 H* Uric Acid Calcium Phosphorus Iron TIBC Erythropoietin Ferritin Total Bilirubin Direct Bilirubin AST ALT Alkaline Phosphatase Lactate Dehydrogenase C-Reactive Protein Serum Total Protein Total Protein Albumin Ldbxn-6-Cyvvwpcvv Abnorm Protein Band 1 PEP Interpretation Crossmatch 10/14/16 10/14/16 10/14/16 17:14 18:03 21:25 WBC RBC Hgb Hct MCV MCHC RDW Plt Count Seg Neuts % (Manual) Lymphocytes % (Manual) Nucleated RBC % Seg Neutrophils # Man Lymphocytes # (Manual) Haptoglobin PT 28.9 H INR 2.71 H Fibrinogen Lupus Anticoagulant LA PTT Baseline POC ABG pH POC ABG pCO2 POC ABG pO2 Sodium Potassium Chloride Carbon Dioxide BUN Creatinine Glucose POC Glucose < 40 L 57 L Lactic Acid Uric Acid Calcium Phosphorus Iron TIBC Erythropoietin Ferritin Total Bilirubin Direct Bilirubin AST ALT Alkaline Phosphatase Lactate Dehydrogenase C-Reactive Protein Serum Total Protein Total Protein Albumin Fzwqm-4-Ugwurrtaw Abnorm Protein Band 1 PEP Interpretation Crossmatch 10/15/16 10/15/16 10/15/16 05:32 05:35 05:35 WBC RBC 2.62 L Hgb 8.1 L Hct 25.8 L MCV 98 H D MCHC 31 L RDW 21.2 H Plt Count 61 L Seg Neuts % (Manual) 27.0 L Lymphocytes % (Manual) 10.0 L Nucleated RBC % 2.0 H Seg Neutrophils # Man Lymphocytes # (Manual) 0.8 L Haptoglobin PT INR Fibrinogen Lupus Anticoagulant LA PTT Baseline POC ABG pH POC ABG pCO2 POC ABG pO2 Sodium Potassium Chloride Carbon Dioxide BUN Creatinine Glucose POC Glucose < 40 L Lactic Acid Uric Acid Calcium Phosphorus Iron TIBC Erythropoietin Ferritin Total Bilirubin Direct Bilirubin AST ALT Alkaline Phosphatase Lactate Dehydrogenase 3871 H C-Reactive Protein Serum Total Protein Total Protein Albumin Rlxif-7-Phqxkxoul Abnorm Protein Band 1 PEP Interpretation Crossmatch 10/15/16 10/15/16 10/15/16 05:35 05:35 05:35 WBC RBC Hgb Hct MCV MCHC RDW Plt Count Seg Neuts % (Manual) Lymphocytes % (Manual) Nucleated RBC % Seg Neutrophils # Man Lymphocytes # (Manual) Haptoglobin PT INR Fibrinogen Lupus Anticoagulant LA PTT Baseline POC ABG pH POC ABG pCO2 POC ABG pO2 Sodium 136 L Potassium 5.3 H D Chloride 91.4 L Carbon Dioxide 6 L* D BUN 57 H Creatinine 7.1 H Glucose 11 L* POC Glucose Lactic Acid 13.60 H* Uric Acid Calcium 7.7 L Phosphorus 10.10 H D Iron TIBC 166 L Erythropoietin Ferritin 9562.0 H Total Bilirubin Direct Bilirubin AST ALT Alkaline Phosphatase Lactate Dehydrogenase C-Reactive Protein Serum Total Protein Total Protein Albumin Sehqi-0-Kcbseqomo Abnorm Protein Band 1 PEP Interpretation Crossmatch 10/15/16 10/15/16 10/15/16 05:51 06:22 06:52 WBC RBC Hgb Hct MCV MCHC RDW Plt Count Seg Neuts % (Manual) Lymphocytes % (Manual) Nucleated RBC % Seg Neutrophils # Man Lymphocytes # (Manual) Haptoglobin PT INR Fibrinogen Lupus Anticoagulant LA PTT Baseline POC ABG pH 7.189 L POC ABG pCO2 28.9 L POC ABG pO2 Sodium Potassium Chloride Carbon Dioxide BUN Creatinine Glucose POC Glucose 59 L 111 H Lactic Acid Uric Acid Calcium Phosphorus Iron TIBC Erythropoietin Ferritin Total Bilirubin Direct Bilirubin AST ALT Alkaline Phosphatase Lactate Dehydrogenase C-Reactive Protein Serum Total Protein Total Protein Albumin Uvjml-9-Clzrgzjmk Abnorm Protein Band 1 PEP Interpretation Crossmatch 10/15/16 10/15/16 10/15/16 08:00 09:57 11:42 WBC RBC Hgb Hct MCV MCHC RDW Plt Count Seg Neuts % (Manual) Lymphocytes % (Manual) Nucleated RBC % Seg Neutrophils # Man Lymphocytes # (Manual) Haptoglobin PT INR Fibrinogen Lupus Anticoagulant LA PTT Baseline POC ABG pH POC ABG pCO2 POC ABG pO2 Sodium Potassium Chloride Carbon Dioxide BUN Creatinine Glucose POC Glucose 63 L 143 H 203 H Lactic Acid Uric Acid Calcium Phosphorus Iron TIBC Erythropoietin Ferritin Total Bilirubin Direct Bilirubin AST ALT Alkaline Phosphatase Lactate Dehydrogenase C-Reactive Protein Serum Total Protein Total Protein Albumin Ttkmw-4-[place] Abnorm Protein Band 1 PEP Interpretation Crossmatch 10/15/16 10/15/16 10/15/16 12:00 12:00 13:00 WBC RBC Hgb Hct MCV MCHC RDW Plt Count Seg Neuts % (Manual) Lymphocytes % (Manual) Nucleated RBC % Seg Neutrophils # Man Lymphocytes # (Manual) Haptoglobin <15 L PT INR Fibrinogen Lupus Anticoagulant LA PTT Baseline POC ABG pH POC ABG pCO2 POC ABG pO2 Sodium Potassium Chloride Carbon Dioxide BUN Creatinine Glucose POC Glucose 136 H Lactic Acid 16.30 H* Uric Acid Calcium Phosphorus Iron TIBC Erythropoietin Ferritin Total Bilirubin Direct Bilirubin AST ALT Alkaline Phosphatase Lactate Dehydrogenase C-Reactive Protein Serum Total Protein Total Protein Albumin Orabx-8-Usrqtmggj Abnorm Protein Band 1 PEP Interpretation Crossmatch 10/15/16 10/15/16 10/15/16 14:06 15:15 16:23 WBC RBC Hgb Hct MCV MCHC RDW Plt Count Seg Neuts % (Manual) Lymphocytes % (Manual) Nucleated RBC % Seg Neutrophils # Man Lymphocytes # (Manual) Haptoglobin PT INR Fibrinogen Lupus Anticoagulant LA PTT Baseline POC ABG pH POC ABG pCO2 POC ABG pO2 Sodium Potassium Chloride Carbon Dioxide BUN Creatinine Glucose POC Glucose 132 H 64 L Lactic Acid 20.40 H* Uric Acid Calcium Phosphorus Iron TIBC Erythropoietin Ferritin Total Bilirubin Direct Bilirubin AST ALT Alkaline Phosphatase Lactate Dehydrogenase C-Reactive Protein Serum Total Protein Total Protein Albumin Ihsly-0-Zqzuvihjc Abnorm Protein Band 1 PEP Interpretation Crossmatch 10/15/16 10/15/16 10/15/16 16:40 17:00 17:10 WBC RBC Hgb Hct MCV MCHC RDW Plt Count Seg Neuts % (Manual) Lymphocytes % (Manual) Nucleated RBC % Seg Neutrophils # Man Lymphocytes # (Manual) Haptoglobin PT INR Fibrinogen Lupus Anticoagulant LA PTT Baseline POC ABG pH 7.323 L POC ABG pCO2 25.8 L POC ABG pO2 135 H Sodium Potassium Chloride Carbon Dioxide BUN Creatinine Glucose POC Glucose 159 H Lactic Acid 20.20 H* Uric Acid Calcium Phosphorus Iron TIBC Erythropoietin Ferritin Total Bilirubin Direct Bilirubin AST ALT Alkaline Phosphatase Lactate Dehydrogenase C-Reactive Protein Serum Total Protein Total Protein Albumin Vbjkq-7-Djfonlaci Abnorm Protein Band 1 PEP Interpretation Crossmatch 10/15/16 10/15/16 10/15/16 17:46 17:53 18:45 WBC RBC Hgb Hct MCV MCHC RDW Plt Count Seg Neuts % (Manual) Lymphocytes % (Manual) Nucleated RBC % Seg Neutrophils # Man Lymphocytes # (Manual) Haptoglobin PT INR Fibrinogen Lupus Anticoagulant LA PTT Baseline POC ABG pH POC ABG pCO2 POC ABG pO2 Sodium Potassium Chloride Carbon Dioxide BUN Creatinine Glucose POC Glucose 126 H 143 H Lactic Acid 21.40 H* Uric Acid Calcium Phosphorus Iron TIBC Erythropoietin Ferritin Total Bilirubin Direct Bilirubin AST ALT Alkaline Phosphatase Lactate Dehydrogenase C-Reactive Protein Serum Total Protein Total Protein Albumin Nsogs-6-Osiyorcac Abnorm Protein Band 1 PEP Interpretation Crossmatch 10/15/16 10/15/16 10/16/16 20:03 22:59 00:06 WBC RBC Hgb Hct MCV MCHC RDW Plt Count Seg Neuts % (Manual) Lymphocytes % (Manual) Nucleated RBC % Seg Neutrophils # Man Lymphocytes # (Manual) Haptoglobin PT INR Fibrinogen Lupus Anticoagulant LA PTT Baseline POC ABG pH POC ABG pCO2 POC ABG pO2 Sodium Potassium Chloride Carbon Dioxide BUN Creatinine Glucose POC Glucose 66 L 53 L 126 H Lactic Acid Uric Acid Calcium Phosphorus Iron TIBC Erythropoietin Ferritin Total Bilirubin Direct Bilirubin AST ALT Alkaline Phosphatase Lactate Dehydrogenase C-Reactive Protein Serum Total Protein Total Protein Albumin Ipgkb-8-Gjdpmiizo Abnorm Protein Band 1 PEP Interpretation Crossmatch 10/16/16 10/16/16 10/16/16 01:03 03:55 04:00 WBC RBC Hgb Hct MCV MCHC RDW Plt Count Seg Neuts % (Manual) Lymphocytes % (Manual) Nucleated RBC % Seg Neutrophils # Man Lymphocytes # (Manual) Haptoglobin PT INR Fibrinogen Lupus Anticoagulant LA PTT Baseline POC ABG pH POC ABG pCO2 POC ABG pO2 Sodium Potassium Chloride Carbon Dioxide BUN Creatinine Glucose POC Glucose 107 H 260 H Lactic Acid 18.00 H* Uric Acid Calcium Phosphorus Iron TIBC Erythropoietin Ferritin Total Bilirubin Direct Bilirubin AST ALT Alkaline Phosphatase Lactate Dehydrogenase C-Reactive Protein Serum Total Protein Total Protein Albumin Lyigx-5-Ukwjezxqo Abnorm Protein Band 1 PEP Interpretation Crossmatch 10/16/16 10/16/16 10/16/16 04:03 07:58 08:34 WBC RBC Hgb Hct MCV MCHC RDW Plt Count Seg Neuts % (Manual) Lymphocytes % (Manual) Nucleated RBC % Seg Neutrophils # Man Lymphocytes # (Manual) Haptoglobin PT INR Fibrinogen Lupus Anticoagulant LA PTT Baseline POC ABG pH 7.527 H POC ABG pCO2 32.9 L POC ABG pO2 119 H Sodium Potassium Chloride Carbon Dioxide BUN Creatinine Glucose POC Glucose 120 H 66 L Lactic Acid Uric Acid Calcium Phosphorus Iron TIBC Erythropoietin Ferritin Total Bilirubin Direct Bilirubin AST ALT Alkaline Phosphatase Lactate Dehydrogenase C-Reactive Protein Serum Total Protein Total Protein Albumin Rklxc-6-Ceaoybwtb Abnorm Protein Band 1 PEP Interpretation Crossmatch 10/16/16 10/16/16 10/16/16 09:13 10:06 10:57 WBC RBC Hgb Hct MCV MCHC RDW Plt Count Seg Neuts % (Manual) Lymphocytes % (Manual) Nucleated RBC % Seg Neutrophils # Man Lymphocytes # (Manual) Haptoglobin PT INR Fibrinogen Lupus Anticoagulant LA PTT Baseline POC ABG pH POC ABG pCO2 POC ABG pO2 Sodium Potassium Chloride Carbon Dioxide BUN Creatinine Glucose POC Glucose 147 H 137 H 140 H Lactic Acid Uric Acid Calcium Phosphorus Iron TIBC Erythropoietin Ferritin Total Bilirubin Direct Bilirubin AST ALT Alkaline Phosphatase Lactate Dehydrogenase C-Reactive Protein Serum Total Protein Total Protein Albumin Kqtto-2-Ntexywymi Abnorm Protein Band 1 PEP Interpretation Crossmatch 10/16/16 10/16/16 10/16/16 11:15 11:15 11:15 WBC 25.8 H RBC 2.30 L Hgb 7.0 L Hct 22.3 L MCV 97 H MCHC 31 L RDW 21.2 H Plt Count 42 L Seg Neuts % (Manual) Lymphocytes % (Manual) 3.0 L Nucleated RBC % 2.0 H Seg Neutrophils # Man 11.1 H Lymphocytes # (Manual) 0.8 L Haptoglobin PT INR Fibrinogen Lupus Anticoagulant LA PTT Baseline POC ABG pH POC ABG pCO2 POC ABG pO2 Sodium Potassium Chloride 81.7 L Carbon Dioxide 13 L D BUN 61 H Creatinine 6.2 H Glucose 171 H POC Glucose Lactic Acid 22.70 H* Uric Acid Calcium 7.1 L Phosphorus 9.10 H Iron TIBC Erythropoietin Ferritin Total Bilirubin Direct Bilirubin AST ALT Alkaline Phosphatase Lactate Dehydrogenase C-Reactive Protein Serum Total Protein Total Protein Albumin Mlrya-0-Wwuurwmnq Abnorm Protein Band 1 PEP Interpretation Crossmatch 10/16/16 10/16/16 10/16/16 15:10 15:50 18:11 WBC RBC Hgb Hct MCV MCHC RDW Plt Count Seg Neuts % (Manual) Lymphocytes % (Manual) Nucleated RBC % Seg Neutrophils # Man Lymphocytes # (Manual) Haptoglobin PT INR Fibrinogen Lupus Anticoagulant LA PTT Baseline POC ABG pH POC ABG pCO2 POC ABG pO2 Sodium Potassium Chloride Carbon Dioxide BUN Creatinine Glucose POC Glucose 47 L 164 H 58 L Lactic Acid Uric Acid Calcium Phosphorus Iron TIBC Erythropoietin Ferritin Total Bilirubin Direct Bilirubin AST ALT Alkaline Phosphatase Lactate Dehydrogenase C-Reactive Protein Serum Total Protein Total Protein Albumin Qkvhf-2-Tisulwcsy Abnorm Protein Band 1 PEP Interpretation Crossmatch 10/16/16 10/16/16 10/17/16 18:26 21:06 00:06 WBC RBC Hgb Hct MCV MCHC RDW Plt Count Seg Neuts % (Manual) Lymphocytes % (Manual) Nucleated RBC % Seg Neutrophils # Man Lymphocytes # (Manual) Haptoglobin PT INR Fibrinogen Lupus Anticoagulant LA PTT Baseline POC ABG pH POC ABG pCO2 POC ABG pO2 489 H Sodium Potassium Chloride Carbon Dioxide BUN Creatinine Glucose POC Glucose 52 L 120 H Lactic Acid Uric Acid Calcium Phosphorus Iron TIBC Erythropoietin Ferritin Total Bilirubin Direct Bilirubin AST ALT Alkaline Phosphatase Lactate Dehydrogenase C-Reactive Protein Serum Total Protein Total Protein Albumin Jnywv-6-Aawgpxalf Abnorm Protein Band 1 PEP Interpretation Crossmatch 10/17/16 10/17/16 10/17/16 04:55 04:55 05:04 WBC 25.5 H RBC 2.23 L Hgb 6.6 L Hct 21.2 L MCV 95 H MCHC 31 L RDW 20.5 H Plt Count 35 L Seg Neuts % (Manual) 79.0 H Lymphocytes % (Manual) 0 L Nucleated RBC % Seg Neutrophils # Man 20.1 H Lymphocytes # (Manual) 0.0 L Haptoglobin PT INR Fibrinogen Lupus Anticoagulant LA PTT Baseline POC ABG pH POC ABG pCO2 27.2 L POC ABG pO2 162 H Sodium Potassium Chloride 91.5 L Carbon Dioxide 16 L BUN 45 H Creatinine 4.5 H Glucose 103 H POC Glucose Lactic Acid Uric Acid Calcium 6.9 L Phosphorus 5.80 H D Iron TIBC Erythropoietin Ferritin Total Bilirubin Direct Bilirubin AST ALT Alkaline Phosphatase Lactate Dehydrogenase C-Reactive Protein Serum Total Protein Total Protein Albumin Lysnh-9-Almqwubij Abnorm Protein Band 1 PEP Interpretation Crossmatch 10/17/16 10/17/16 10/17/16 07:59 09:04 10:04 WBC RBC Hgb Hct MCV MCHC RDW Plt Count Seg Neuts % (Manual) Lymphocytes % (Manual) Nucleated RBC % Seg Neutrophils # Man Lymphocytes # (Manual) Haptoglobin PT INR Fibrinogen Lupus Anticoagulant LA PTT Baseline POC ABG pH POC ABG pCO2 POC ABG pO2 Sodium Potassium Chloride Carbon Dioxide BUN Creatinine Glucose POC Glucose 65 L 118 H Lactic Acid Uric Acid Calcium Phosphorus Iron TIBC Erythropoietin Ferritin Total Bilirubin Direct Bilirubin AST ALT Alkaline Phosphatase Lactate Dehydrogenase C-Reactive Protein Serum Total Protein Total Protein Albumin Mueux-7-Kugyfksmw Abnorm Protein Band 1 PEP Interpretation Crossmatch See Detail 10/17/16 10/17/16 10/17/16 11:52 13:08 15:42 WBC RBC Hgb Hct MCV MCHC RDW Plt Count Seg Neuts % (Manual) Lymphocytes % (Manual) Nucleated RBC % Seg Neutrophils # Man Lymphocytes # (Manual) Haptoglobin PT INR Fibrinogen Lupus Anticoagulant LA PTT Baseline POC ABG pH POC ABG pCO2 POC ABG pO2 Sodium Potassium Chloride Carbon Dioxide BUN Creatinine Glucose POC Glucose 125 H 106 H 55 L Lactic Acid Uric Acid Calcium Phosphorus Iron TIBC Erythropoietin Ferritin Total Bilirubin Direct Bilirubin AST ALT Alkaline Phosphatase Lactate Dehydrogenase C-Reactive Protein Serum Total Protein Total Protein Albumin Hrrqs-5-Lvbtzjhlo Abnorm Protein Band 1 PEP Interpretation Crossmatch 10/17/16 10/17/16 10/17/16 17:39 20:37 21:02 WBC RBC Hgb Hct MCV MCHC RDW Plt Count Seg Neuts % (Manual) Lymphocytes % (Manual) Nucleated RBC % Seg Neutrophils # Man Lymphocytes # (Manual) Haptoglobin PT INR Fibrinogen Lupus Anticoagulant LA PTT Baseline POC ABG pH POC ABG pCO2 28.2 L POC ABG pO2 Sodium Potassium Chloride Carbon Dioxide BUN Creatinine Glucose POC Glucose < 40 L 106 H Lactic Acid Uric Acid Calcium Phosphorus Iron TIBC Erythropoietin Ferritin Total Bilirubin Direct Bilirubin AST ALT Alkaline Phosphatase Lactate Dehydrogenase C-Reactive Protein Serum Total Protein Total Protein Albumin Vvpge-3-Yaykdlgyc Abnorm Protein Band 1 PEP Interpretation Crossmatch 10/17/16 10/17/16 10/18/16 22:18 23:14 00:28 WBC RBC Hgb Hct MCV MCHC RDW Plt Count Seg Neuts % (Manual) Lymphocytes % (Manual) Nucleated RBC % Seg Neutrophils # Man Lymphocytes # (Manual) Haptoglobin PT INR Fibrinogen Lupus Anticoagulant LA PTT Baseline POC ABG pH POC ABG pCO2 POC ABG pO2 Sodium Potassium Chloride Carbon Dioxide BUN Creatinine Glucose POC Glucose 111 H 118 H 112 H Lactic Acid Uric Acid Calcium Phosphorus Iron TIBC Erythropoietin Ferritin Total Bilirubin Direct Bilirubin AST ALT Alkaline Phosphatase Lactate Dehydrogenase C-Reactive Protein Serum Total Protein Total Protein Albumin Mczgb-4-Ptdmlfgql Abnorm Protein Band 1 PEP Interpretation Crossmatch 10/18/16 10/18/16 10/18/16 05:00 05:00 05:15 WBC 27.3 H RBC 2.75 L Hgb 7.9 L Hct 25.3 L MCV MCHC 31 L RDW 20.7 H Plt Count 31 L Seg Neuts % (Manual) 87.0 H Lymphocytes % (Manual) 1.0 L Nucleated RBC % 1.0 H Seg Neutrophils # Man 23.8 H Lymphocytes # (Manual) 0.3 L Haptoglobin PT INR Fibrinogen Lupus Anticoagulant LA PTT Baseline POC ABG pH 7.466 H POC ABG pCO2 25.1 L POC ABG pO2 Sodium Potassium Chloride 88.7 L Carbon Dioxide 18 L BUN 66 H Creatinine 4.7 H Glucose POC Glucose Lactic Acid Uric Acid Calcium 6.1 L Phosphorus 7.30 H D Iron TIBC Erythropoietin Ferritin Total Bilirubin Direct Bilirubin AST ALT Alkaline Phosphatase Lactate Dehydrogenase C-Reactive Protein Serum Total Protein Total Protein Albumin Vldwr-9-Bavgntaon Abnorm Protein Band 1 PEP Interpretation Crossmatch 10/18/16 10/18/16 10/18/16 07:15 07:44 09:07 WBC RBC Hgb Hct MCV MCHC RDW Plt Count Seg Neuts % (Manual) Lymphocytes % (Manual) Nucleated RBC % Seg Neutrophils # Man Lymphocytes # (Manual) Haptoglobin PT INR Fibrinogen Lupus Anticoagulant LA PTT Baseline POC ABG pH POC ABG pCO2 POC ABG pO2 Sodium Potassium Chloride Carbon Dioxide BUN Creatinine Glucose POC Glucose 64 L 156 H 117 H Lactic Acid Uric Acid Calcium Phosphorus Iron TIBC Erythropoietin Ferritin Total Bilirubin Direct Bilirubin AST ALT Alkaline Phosphatase Lactate Dehydrogenase C-Reactive Protein Serum Total Protein Total Protein Albumin Mlkdq-9-Tzzrnjhcj Abnorm Protein Band 1 PEP Interpretation Crossmatch 10/18/16 10/18/16 10/18/16 09:15 14:00 18:21 WBC RBC Hgb Hct MCV MCHC RDW Plt Count Seg Neuts % (Manual) Lymphocytes % (Manual) Nucleated RBC % Seg Neutrophils # Man Lymphocytes # (Manual) Haptoglobin PT INR Fibrinogen Lupus Anticoagulant LA PTT Baseline POC ABG pH POC ABG pCO2 POC ABG pO2 Sodium Potassium Chloride Carbon Dioxide BUN Creatinine Glucose POC Glucose 106 H 112 H Lactic Acid 14.30 H* Uric Acid Calcium Phosphorus Iron TIBC Erythropoietin Ferritin Total Bilirubin Direct Bilirubin AST ALT Alkaline Phosphatase Lactate Dehydrogenase C-Reactive Protein Serum Total Protein Total Protein Albumin Mftif-3-Nzvekqfua Abnorm Protein Band 1 PEP Interpretation Crossmatch 10/18/16 10/18/16 10/18/16 19:58 20:55 22:11 WBC RBC Hgb Hct MCV MCHC RDW Plt Count Seg Neuts % (Manual) Lymphocytes % (Manual) Nucleated RBC % Seg Neutrophils # Man Lymphocytes # (Manual) Haptoglobin PT INR Fibrinogen Lupus Anticoagulant LA PTT Baseline POC ABG pH POC ABG pCO2 POC ABG pO2 Sodium Potassium Chloride Carbon Dioxide BUN Creatinine Glucose POC Glucose 127 H 125 H 159 H Lactic Acid Uric Acid Calcium Phosphorus Iron TIBC Erythropoietin Ferritin Total Bilirubin Direct Bilirubin AST ALT Alkaline Phosphatase Lactate Dehydrogenase C-Reactive Protein Serum Total Protein Total Protein Albumin Hwarl-1-Qtbegtmdb Abnorm Protein Band 1 PEP Interpretation Crossmatch 10/18/16 10/18/16 10/19/16 23:11 23:57 01:06 WBC RBC Hgb Hct MCV MCHC RDW Plt Count Seg Neuts % (Manual) Lymphocytes % (Manual) Nucleated RBC % Seg Neutrophils # Man Lymphocytes # (Manual) Haptoglobin PT INR Fibrinogen Lupus Anticoagulant LA PTT Baseline POC ABG pH POC ABG pCO2 POC ABG pO2 Sodium Potassium Chloride Carbon Dioxide BUN Creatinine Glucose POC Glucose 122 H 137 H 162 H Lactic Acid Uric Acid Calcium Phosphorus Iron TIBC Erythropoietin Ferritin Total Bilirubin Direct Bilirubin AST ALT Alkaline Phosphatase Lactate Dehydrogenase C-Reactive Protein Serum Total Protein Total Protein Albumin Djdyi-3-Kmjkhrdtg Abnorm Protein Band 1 PEP Interpretation Crossmatch 10/19/16 10/19/16 10/19/16 01:59 03:07 04:10 WBC RBC Hgb Hct MCV MCHC RDW Plt Count Seg Neuts % (Manual) Lymphocytes % (Manual) Nucleated RBC % Seg Neutrophils # Man Lymphocytes # (Manual) Haptoglobin PT INR Fibrinogen Lupus Anticoagulant LA PTT Baseline POC ABG pH POC ABG pCO2 POC ABG pO2 Sodium Potassium Chloride Carbon Dioxide BUN Creatinine Glucose POC Glucose 154 H 178 H 186 H Lactic Acid Uric Acid Calcium Phosphorus Iron TIBC Erythropoietin Ferritin Total Bilirubin Direct Bilirubin AST ALT Alkaline Phosphatase Lactate Dehydrogenase C-Reactive Protein Serum Total Protein Total Protein Albumin Bilqd-3-Vmixievvn Abnorm Protein Band 1 PEP Interpretation Crossmatch 10/19/16 10/19/16 10/19/16 05:14 05:15 05:47 WBC RBC Hgb Hct MCV MCHC RDW Plt Count Seg Neuts % (Manual) Lymphocytes % (Manual) Nucleated RBC % Seg Neutrophils # Man Lymphocytes # (Manual) Haptoglobin PT INR Fibrinogen Lupus Anticoagulant LA PTT Baseline POC ABG pH 7.581 H POC ABG pCO2 22.9 L POC ABG pO2 58 L Sodium Potassium Chloride Carbon Dioxide BUN Creatinine Glucose POC Glucose 197 H 204 H Lactic Acid Uric Acid Calcium Phosphorus Iron TIBC Erythropoietin Ferritin Total Bilirubin Direct Bilirubin AST ALT Alkaline Phosphatase Lactate Dehydrogenase C-Reactive Protein Serum Total Protein Total Protein Albumin Yxmcw-0-Oqlrpepst Abnorm Protein Band 1 PEP Interpretation Crossmatch 10/19/16 10/19/16 10/19/16 06:00 06:00 07:51 WBC 23.0 H RBC 2.54 L Hgb 7.5 L Hct 23.0 L MCV MCHC RDW 20.7 H Plt Count 25 L Seg Neuts % (Manual) 91.0 H Lymphocytes % (Manual) 2.0 L Nucleated RBC % 1.0 H Seg Neutrophils # Man 20.9 H Lymphocytes # (Manual) 0.5 L Haptoglobin PT INR Fibrinogen Lupus Anticoagulant LA PTT Baseline POC ABG pH POC ABG pCO2 POC ABG pO2 Sodium Potassium Chloride 88.7 L Carbon Dioxide 21 L BUN 70 H Creatinine 3.9 H Glucose 189 H POC Glucose 145 H Lactic Acid Uric Acid Calcium 5.6 L* Phosphorus 6.30 H Iron TIBC Erythropoietin Ferritin Total Bilirubin Direct Bilirubin AST ALT Alkaline Phosphatase Lactate Dehydrogenase C-Reactive Protein Serum Total Protein Total Protein Albumin Jvksu-3-Airobjwfm Abnorm Protein Band 1 PEP Interpretation Crossmatch 10/19/16 10/19/16 10/19/16 09:14 10:01 12:14 WBC RBC Hgb Hct MCV MCHC RDW Plt Count Seg Neuts % (Manual) Lymphocytes % (Manual) Nucleated RBC % Seg Neutrophils # Man Lymphocytes # (Manual) Haptoglobin PT INR Fibrinogen Lupus Anticoagulant LA PTT Baseline POC ABG pH POC ABG pCO2 POC ABG pO2 Sodium Potassium Chloride Carbon Dioxide BUN Creatinine Glucose POC Glucose 173 H 153 H 180 H Lactic Acid Uric Acid Calcium Phosphorus Iron TIBC Erythropoietin Ferritin Total Bilirubin Direct Bilirubin AST ALT Alkaline Phosphatase Lactate Dehydrogenase C-Reactive Protein Serum Total Protein Total Protein Albumin Dkqpn-0-Sqmcfkkkx Abnorm Protein Band 1 PEP Interpretation Crossmatch 10/19/16 10/19/16 10/19/16 14:15 16:38 20:27 WBC RBC Hgb Hct MCV MCHC RDW Plt Count Seg Neuts % (Manual) Lymphocytes % (Manual) Nucleated RBC % Seg Neutrophils # Man Lymphocytes # (Manual) Haptoglobin PT INR Fibrinogen Lupus Anticoagulant LA PTT Baseline POC ABG pH POC ABG pCO2 POC ABG pO2 Sodium Potassium Chloride Carbon Dioxide BUN Creatinine Glucose POC Glucose 194 H 202 H Lactic Acid Uric Acid Calcium Phosphorus Iron TIBC Erythropoietin 148.2 H Ferritin Total Bilirubin Direct Bilirubin AST ALT Alkaline Phosphatase Lactate Dehydrogenase C-Reactive Protein Serum Total Protein Total Protein Albumin Qyvrl-2-Lwjhdtcjs Abnorm Protein Band 1 PEP Interpretation Crossmatch 10/19/16 10/20/16 10/20/16 23:27 04:06 05:00 WBC RBC Hgb Hct MCV MCHC RDW Plt Count Seg Neuts % (Manual) Lymphocytes % (Manual) Nucleated RBC % Seg Neutrophils # Man Lymphocytes # (Manual) Haptoglobin PT INR Fibrinogen Lupus Anticoagulant LA PTT Baseline POC ABG pH POC ABG pCO2 POC ABG pO2 Sodium Potassium Chloride 88.8 L Carbon Dioxide BUN 93 H Creatinine 4.3 H Glucose 204 H POC Glucose 201 H 200 H Lactic Acid Uric Acid Calcium 5.2 L* Phosphorus Iron TIBC Erythropoietin Ferritin Total Bilirubin Direct Bilirubin AST ALT Alkaline Phosphatase Lactate Dehydrogenase C-Reactive Protein Serum Total Protein Total Protein Albumin Cafpo-9-Mugzvymiy Abnorm Protein Band 1 PEP Interpretation Crossmatch 10/20/16 10/20/16 10/20/16 05:16 06:00 07:43 WBC 24.8 H RBC 2.52 L Hgb 7.4 L Hct 22.9 L MCV MCHC RDW 19.9 H Plt Count 23 L Seg Neuts % (Manual) 97.0 H Lymphocytes % (Manual) 1.0 L Nucleated RBC % 9.0 H Seg Neutrophils # Man 24.1 H Lymphocytes # (Manual) 0.2 L Haptoglobin PT INR Fibrinogen Lupus Anticoagulant LA PTT Baseline POC ABG pH 7.463 H POC ABG pCO2 POC ABG pO2 157 H Sodium Potassium Chloride Carbon Dioxide BUN Creatinine Glucose POC Glucose 192 H Lactic Acid Uric Acid Calcium Phosphorus Iron TIBC Erythropoietin Ferritin Total Bilirubin Direct Bilirubin AST ALT Alkaline Phosphatase Lactate Dehydrogenase C-Reactive Protein Serum Total Protein Total Protein Albumin Wiwkh-8-Ikctiilua Abnorm Protein Band 1 PEP Interpretation Crossmatch 10/20/16 10/20/16 10/20/16 12:11 15:32 21:23 WBC RBC Hgb Hct MCV MCHC RDW Plt Count Seg Neuts % (Manual) Lymphocytes % (Manual) Nucleated RBC % Seg Neutrophils # Man Lymphocytes # (Manual) Haptoglobin PT INR Fibrinogen Lupus Anticoagulant LA PTT Baseline POC ABG pH POC ABG pCO2 POC ABG pO2 Sodium Potassium Chloride Carbon Dioxide BUN Creatinine Glucose POC Glucose 172 H 216 H 271 H Lactic Acid Uric Acid Calcium Phosphorus Iron TIBC Erythropoietin Ferritin Total Bilirubin Direct Bilirubin AST ALT Alkaline Phosphatase Lactate Dehydrogenase C-Reactive Protein Serum Total Protein Total Protein Albumin Wuapb-3-Rxauhkhvu Abnorm Protein Band 1 PEP Interpretation Crossmatch 10/20/16 10/21/16 10/21/16 23:49 03:53 04:58 WBC RBC Hgb Hct MCV MCHC RDW Plt Count Seg Neuts % (Manual) Lymphocytes % (Manual) Nucleated RBC % Seg Neutrophils # Man Lymphocytes # (Manual) Haptoglobin PT INR Fibrinogen Lupus Anticoagulant LA PTT Baseline POC ABG pH 7.459 H POC ABG pCO2 POC ABG pO2 113 H Sodium 136 L Potassium 2.8 L* D Chloride 91.6 L Carbon Dioxide BUN 62 H Creatinine 2.8 H Glucose 236 H POC Glucose 317 H Lactic Acid Uric Acid Calcium 6.2 L D Phosphorus Iron TIBC Erythropoietin Ferritin Total Bilirubin 2.70 H Direct Bilirubin AST 73 H ALT 57 H Alkaline Phosphatase 158 H Lactate Dehydrogenase C-Reactive Protein Serum Total Protein Total Protein 4.9 L Albumin 2.6 L Cyvli-1-Xmedgqfhm Abnorm Protein Band 1 PEP Interpretation Crossmatch 10/21/16 10/21/16 10/21/16 05:25 07:11 10:30 WBC 28.1 H RBC 2.36 L Hgb 7.0 L Hct 21.6 L MCV MCHC RDW 20.0 H Plt Count 14 L* Seg Neuts % (Manual) 92.0 H Lymphocytes % (Manual) 0 L Nucleated RBC % 5.0 H Seg Neutrophils # Man 25.9 H Lymphocytes # (Manual) 0.0 L Haptoglobin PT INR Fibrinogen Lupus Anticoagulant LA PTT Baseline POC ABG pH POC ABG pCO2 POC ABG pO2 Sodium Potassium Chloride Carbon Dioxide BUN Creatinine Glucose POC Glucose 237 H 206 H Lactic Acid Uric Acid Calcium Phosphorus Iron TIBC Erythropoietin Ferritin Total Bilirubin Direct Bilirubin AST ALT Alkaline Phosphatase Lactate Dehydrogenase C-Reactive Protein Serum Total Protein Total Protein Albumin Jzvju-5-Hgjhcsyzl Abnorm Protein Band 1 PEP Interpretation Crossmatch 10/21/16 10/21/16 10/21/16 11:25 12:31 16:33 WBC RBC Hgb Hct MCV MCHC RDW Plt Count Seg Neuts % (Manual) Lymphocytes % (Manual) Nucleated RBC % Seg Neutrophils # Man Lymphocytes # (Manual) Haptoglobin PT 49.1 H INR 5.28 H* Fibrinogen Lupus Anticoagulant LA PTT Baseline POC ABG pH POC ABG pCO2 POC ABG pO2 Sodium Potassium Chloride Carbon Dioxide BUN Creatinine Glucose POC Glucose 145 H 151 H Lactic Acid Uric Acid Calcium Phosphorus Iron TIBC Erythropoietin Ferritin Total Bilirubin Direct Bilirubin AST ALT Alkaline Phosphatase Lactate Dehydrogenase C-Reactive Protein Serum Total Protein Total Protein Albumin Zxufj-8-Izukgaiwr Abnorm Protein Band 1 PEP Interpretation Crossmatch 10/21/16 10/22/16 10/22/16 19:53 00:00 05:23 WBC RBC Hgb Hct MCV MCHC RDW Plt Count Seg Neuts % (Manual) Lymphocytes % (Manual) Nucleated RBC % Seg Neutrophils # Man Lymphocytes # (Manual) Haptoglobin PT INR Fibrinogen Lupus Anticoagulant LA PTT Baseline POC ABG pH POC ABG pCO2 POC ABG pO2 Sodium Potassium Chloride Carbon Dioxide BUN Creatinine Glucose POC Glucose 170 H 168 H 131 H Lactic Acid Uric Acid Calcium Phosphorus Iron TIBC Erythropoietin Ferritin Total Bilirubin Direct Bilirubin AST ALT Alkaline Phosphatase Lactate Dehydrogenase C-Reactive Protein Serum Total Protein Total Protein Albumin Dmbgs-1-Cmmbofdaa Abnorm Protein Band 1 PEP Interpretation Crossmatch 10/22/16 10/22/16 10/22/16 05:25 05:35 13:03 WBC RBC Hgb Hct MCV MCHC RDW Plt Count Seg Neuts % (Manual) Lymphocytes % (Manual) Nucleated RBC % Seg Neutrophils # Man Lymphocytes # (Manual) Haptoglobin PT INR Fibrinogen Lupus Anticoagulant LA PTT Baseline POC ABG pH 7.462 H POC ABG pCO2 POC ABG pO2 Sodium 135 L Potassium 3.0 L Chloride 88.5 L Carbon Dioxide BUN 84 H Creatinine 3.4 H Glucose 124 H POC Glucose 164 H Lactic Acid Uric Acid Calcium 5.9 L* Phosphorus Iron TIBC Erythropoietin Ferritin Total Bilirubin 2.00 H Direct Bilirubin AST 85 H ALT Alkaline Phosphatase 199 H Lactate Dehydrogenase C-Reactive Protein Serum Total Protein Total Protein 5.0 L Albumin 2.5 L Zreep-6-Dphgoyjwb Abnorm Protein Band 1 PEP Interpretation Crossmatch 10/22/16 10/22/16 10/23/16 17:14 23:16 04:47 WBC RBC Hgb Hct MCV MCHC RDW Plt Count Seg Neuts % (Manual) Lymphocytes % (Manual) Nucleated RBC % Seg Neutrophils # Man Lymphocytes # (Manual) Haptoglobin PT INR Fibrinogen Lupus Anticoagulant LA PTT Baseline POC ABG pH 7.476 H POC ABG pCO2 POC ABG pO2 108 H Sodium Potassium Chloride Carbon Dioxide BUN Creatinine Glucose POC Glucose 188 H 167 H Lactic Acid Uric Acid Calcium Phosphorus Iron TIBC Erythropoietin Ferritin Total Bilirubin Direct Bilirubin AST ALT Alkaline Phosphatase Lactate Dehydrogenase C-Reactive Protein Serum Total Protein Total Protein Albumin Ttrbq-9-Wdxcjblus Abnorm Protein Band 1 PEP Interpretation Crossmatch 10/23/16 10/23/16 10/23/16 05:49 07:00 07:12 WBC 24.2 H RBC 2.27 L Hgb 7.0 L Hct 21.1 L MCV MCHC RDW 19.7 H Plt Count 35 L D Seg Neuts % (Manual) Lymphocytes % (Manual) Nucleated RBC % Seg Neutrophils # Man Lymphocytes # (Manual) Haptoglobin PT INR Fibrinogen Lupus Anticoagulant LA PTT Baseline POC ABG pH POC ABG pCO2 POC ABG pO2 Sodium Potassium 3.5 L Chloride 95.7 L Carbon Dioxide BUN 55 H Creatinine 2.7 H Glucose 103 H POC Glucose 106 H Lactic Acid Uric Acid Calcium 7.1 L D Phosphorus Iron TIBC Erythropoietin Ferritin Total Bilirubin Direct Bilirubin AST ALT Alkaline Phosphatase Lactate Dehydrogenase C-Reactive Protein Serum Total Protein Total Protein Albumin Wefno-9-Mxkspvszm Abnorm Protein Band 1 PEP Interpretation Crossmatch 10/24/16 10/24/16 10/24/16 00:12 05:16 07:00 WBC 17.9 H RBC 2.12 L Hgb 6.5 L Hct 19.9 L* MCV MCHC RDW 19.3 H Plt Count 44 L Seg Neuts % (Manual) Lymphocytes % (Manual) Nucleated RBC % Seg Neutrophils # Man Lymphocytes # (Manual) Haptoglobin PT INR Fibrinogen Lupus Anticoagulant LA PTT Baseline POC ABG pH POC ABG pCO2 POC ABG pO2 Sodium Potassium Chloride Carbon Dioxide BUN Creatinine Glucose POC Glucose 116 H 135 H Lactic Acid Uric Acid Calcium Phosphorus Iron TIBC Erythropoietin Ferritin Total Bilirubin Direct Bilirubin AST ALT Alkaline Phosphatase Lactate Dehydrogenase C-Reactive Protein Serum Total Protein Total Protein Albumin Vrxrc-1-Yjweyiwpz Abnorm Protein Band 1 PEP Interpretation Crossmatch 10/24/16 10/24/16 10/24/16 07:00 11:45 12:12 WBC RBC Hgb Hct MCV MCHC RDW Plt Count Seg Neuts % (Manual) Lymphocytes % (Manual) Nucleated RBC % Seg Neutrophils # Man Lymphocytes # (Manual) Haptoglobin PT INR Fibrinogen Lupus Anticoagulant LA PTT Baseline POC ABG pH POC ABG pCO2 POC ABG pO2 Sodium Potassium Chloride 92.9 L Carbon Dioxide BUN 74 H Creatinine 3.3 H Glucose 136 H POC Glucose 177 H Lactic Acid Uric Acid Calcium 6.6 L Phosphorus Iron TIBC Erythropoietin Ferritin Total Bilirubin 2.10 H Direct Bilirubin AST 68 H ALT Alkaline Phosphatase 224 H Lactate Dehydrogenase C-Reactive Protein Serum Total Protein Total Protein 4.8 L Albumin 2.3 L Dsrcx-7-Phsftehij Abnorm Protein Band 1 PEP Interpretation Crossmatch See Detail 10/24/16 10/24/16 10/24/16 16:30 16:30 17:28 WBC RBC Hgb Hct MCV MCHC RDW Plt Count Seg Neuts % (Manual) Lymphocytes % (Manual) Nucleated RBC % Seg Neutrophils # Man Lymphocytes # (Manual) Haptoglobin PT INR Fibrinogen Lupus Anticoagulant LA PTT Baseline POC ABG pH POC ABG pCO2 POC ABG pO2 Sodium Potassium Chloride Carbon Dioxide BUN Creatinine Glucose POC Glucose 128 H Lactic Acid 3.00 H* Uric Acid Calcium Phosphorus Iron TIBC Erythropoietin Ferritin Total Bilirubin Direct Bilirubin AST ALT Alkaline Phosphatase Lactate Dehydrogenase C-Reactive Protein 7.40 H Serum Total Protein Total Protein Albumin Iyquu-8-Omjvbvxkx Abnorm Protein Band 1 PEP Interpretation Crossmatch 10/24/16 10/24/16 10/25/16 18:40 23:32 05:00 WBC 17.5 H RBC 2.99 L Hgb 9.1 L Hct 26.9 L D MCV MCHC RDW 17.7 H Plt Count 53 L Seg Neuts % (Manual) Lymphocytes % (Manual) Nucleated RBC % Seg Neutrophils # Man Lymphocytes # (Manual) Haptoglobin PT INR Fibrinogen Lupus Anticoagulant LA PTT Baseline POC ABG pH POC ABG pCO2 POC ABG pO2 Sodium Potassium Chloride Carbon Dioxide BUN Creatinine Glucose POC Glucose 140 H Lactic Acid 3.10 H* Uric Acid Calcium Phosphorus Iron TIBC Erythropoietin Ferritin Total Bilirubin Direct Bilirubin AST ALT Alkaline Phosphatase Lactate Dehydrogenase C-Reactive Protein Serum Total Protein Total Protein Albumin Fdcyu-7-Bqawbgvgk Abnorm Protein Band 1 PEP Interpretation Crossmatch 10/25/16 10/25/16 10/25/16 05:00 05:22 11:58 WBC RBC Hgb Hct MCV MCHC RDW Plt Count Seg Neuts % (Manual) Lymphocytes % (Manual) Nucleated RBC % Seg Neutrophils # Man Lymphocytes # (Manual) Haptoglobin PT INR Fibrinogen Lupus Anticoagulant LA PTT Baseline POC ABG pH POC ABG pCO2 POC ABG pO2 Sodium Potassium Chloride 91.6 L Carbon Dioxide BUN 89 H Creatinine 3.9 H Glucose 150 H POC Glucose 164 H 189 H Lactic Acid Uric Acid Calcium 6.9 L Phosphorus Iron TIBC Erythropoietin Ferritin Total Bilirubin Direct Bilirubin AST ALT Alkaline Phosphatase Lactate Dehydrogenase C-Reactive Protein Serum Total Protein Total Protein Albumin Ixboh-2-Eilkcvgdf Abnorm Protein Band 1 PEP Interpretation Crossmatch 10/25/16 10/25/16 10/26/16 17:56 23:12 04:00 WBC RBC Hgb Hct MCV MCHC RDW Plt Count Seg Neuts % (Manual) Lymphocytes % (Manual) Nucleated RBC % Seg Neutrophils # Man Lymphocytes # (Manual) Haptoglobin PT INR Fibrinogen Lupus Anticoagulant LA PTT Baseline POC ABG pH POC ABG pCO2 POC ABG pO2 Sodium 135 L Potassium Chloride 90.7 L Carbon Dioxide BUN 64 H Creatinine 2.9 H Glucose 132 H POC Glucose 156 H 133 H Lactic Acid Uric Acid Calcium 7.3 L Phosphorus Iron TIBC Erythropoietin Ferritin Total Bilirubin Direct Bilirubin AST ALT Alkaline Phosphatase Lactate Dehydrogenase C-Reactive Protein Serum Total Protein Total Protein Albumin Fnekc-5-Ijnwoozgw Abnorm Protein Band 1 PEP Interpretation Crossmatch 10/26/16 10/26/16 10/26/16 05:14 06:15 11:51 WBC 18.6 H RBC 3.15 L Hgb 9.6 L Hct 29.0 L MCV MCHC RDW 17.8 H Plt Count 71 L Seg Neuts % (Manual) 85.0 H Lymphocytes % (Manual) 1.0 L Nucleated RBC % Seg Neutrophils # Man 15.8 H Lymphocytes # (Manual) 0.2 L Haptoglobin PT INR Fibrinogen Lupus Anticoagulant LA PTT Baseline POC ABG pH POC ABG pCO2 POC ABG pO2 Sodium Potassium Chloride Carbon Dioxide BUN Creatinine Glucose POC Glucose 130 H 139 H Lactic Acid Uric Acid Calcium Phosphorus Iron TIBC Erythropoietin Ferritin Total Bilirubin Direct Bilirubin AST ALT Alkaline Phosphatase Lactate Dehydrogenase C-Reactive Protein Serum Total Protein Total Protein Albumin Adyzm-7-Dhlinztng Abnorm Protein Band 1 PEP Interpretation Crossmatch 10/26/16 10/26/16 10/27/16 17:25 23:35 04:10 WBC 16.8 H RBC 3.38 L Hgb 10.1 L Hct 31.0 L MCV MCHC RDW 18.0 H Plt Count 77 L Seg Neuts % (Manual) 92.0 H Lymphocytes % (Manual) 1.0 L Nucleated RBC % 1.0 H Seg Neutrophils # Man 15.5 H Lymphocytes # (Manual) 0.2 L Haptoglobin PT INR Fibrinogen Lupus Anticoagulant LA PTT Baseline POC ABG pH POC ABG pCO2 POC ABG pO2 Sodium Potassium Chloride Carbon Dioxide BUN Creatinine Glucose POC Glucose 118 H 145 H Lactic Acid Uric Acid Calcium Phosphorus Iron TIBC Erythropoietin Ferritin Total Bilirubin Direct Bilirubin AST ALT Alkaline Phosphatase Lactate Dehydrogenase C-Reactive Protein Serum Total Protein Total Protein Albumin Shkec-3-Potjdnhap Abnorm Protein Band 1 PEP Interpretation Crossmatch 10/27/16 10/27/16 10/27/16 04:10 05:53 08:14 WBC RBC Hgb Hct MCV MCHC RDW Plt Count Seg Neuts % (Manual) Lymphocytes % (Manual) Nucleated RBC % Seg Neutrophils # Man Lymphocytes # (Manual) Haptoglobin PT 23.0 H INR 2.03 H Fibrinogen Lupus Anticoagulant LA PTT Baseline POC ABG pH POC ABG pCO2 POC ABG pO2 Sodium Potassium Chloride 95.5 L Carbon Dioxide BUN 63 H Creatinine 2.8 H Glucose 112 H POC Glucose 127 H Lactic Acid Uric Acid Calcium 7.5 L Phosphorus Iron TIBC Erythropoietin Ferritin Total Bilirubin Direct Bilirubin AST ALT Alkaline Phosphatase Lactate Dehydrogenase C-Reactive Protein Serum Total Protein Total Protein Albumin Hctzk-2-Qsfygfkba Abnorm Protein Band 1 PEP Interpretation Crossmatch 10/27/16 10/27/16 10/27/16 11:56 17:47 23:55 WBC RBC Hgb Hct MCV MCHC RDW Plt Count Seg Neuts % (Manual) Lymphocytes % (Manual) Nucleated RBC % Seg Neutrophils # Man Lymphocytes # (Manual) Haptoglobin PT INR Fibrinogen Lupus Anticoagulant LA PTT Baseline POC ABG pH POC ABG pCO2 POC ABG pO2 Sodium Potassium Chloride Carbon Dioxide BUN Creatinine Glucose POC Glucose 113 H 117 H 142 H Lactic Acid Uric Acid Calcium Phosphorus Iron TIBC Erythropoietin Ferritin Total Bilirubin Direct Bilirubin AST ALT Alkaline Phosphatase Lactate Dehydrogenase C-Reactive Protein Serum Total Protein Total Protein Albumin Gtqjx-7-Opjzfsjap Abnorm Protein Band 1 PEP Interpretation Crossmatch 10/28/16 10/28/16 10/28/16 05:45 05:45 11:44 WBC 16.6 H RBC 3.18 L Hgb 9.5 L Hct 29.3 L MCV MCHC RDW 17.6 H Plt Count 83 L Seg Neuts % (Manual) 87.0 H Lymphocytes % (Manual) 3.0 L Nucleated RBC % Seg Neutrophils # Man 14.4 H Lymphocytes # (Manual) 0.5 L Haptoglobin PT INR Fibrinogen Lupus Anticoagulant LA PTT Baseline POC ABG pH POC ABG pCO2 POC ABG pO2 Sodium Potassium Chloride 94.6 L Carbon Dioxide 21 L BUN 90 H Creatinine 3.9 H Glucose 152 H POC Glucose 151 H Lactic Acid Uric Acid Calcium 6.9 L Phosphorus Iron TIBC Erythropoietin Ferritin Total Bilirubin Direct Bilirubin AST ALT Alkaline Phosphatase Lactate Dehydrogenase C-Reactive Protein Serum Total Protein Total Protein Albumin Jzchr-0-Xlyshzkwi Abnorm Protein Band 1 PEP Interpretation Crossmatch 10/28/16 10/28/16 10/29/16 17:31 23:47 04:53 WBC RBC Hgb Hct MCV MCHC RDW Plt Count Seg Neuts % (Manual) Lymphocytes % (Manual) Nucleated RBC % Seg Neutrophils # Man Lymphocytes # (Manual) Haptoglobin PT INR Fibrinogen Lupus Anticoagulant LA PTT Baseline POC ABG pH POC ABG pCO2 POC ABG pO2 Sodium Potassium Chloride Carbon Dioxide BUN Creatinine Glucose POC Glucose 184 H 124 H 153 H Lactic Acid Uric Acid Calcium Phosphorus Iron TIBC Erythropoietin Ferritin Total Bilirubin Direct Bilirubin AST ALT Alkaline Phosphatase Lactate Dehydrogenase C-Reactive Protein Serum Total Protein Total Protein Albumin Vzrwr-6-Mkomdhfrq Abnorm Protein Band 1 PEP Interpretation Crossmatch 10/29/16 10/29/16 10/29/16 06:15 06:15 10:58 WBC 14.1 H RBC 3.15 L Hgb 9.6 L Hct 29.1 L MCV MCHC RDW 17.9 H Plt Count 73 L Seg Neuts % (Manual) 93.0 H Lymphocytes % (Manual) 4.0 L Nucleated RBC % Seg Neutrophils # Man 13.1 H Lymphocytes # (Manual) 0.6 L Haptoglobin PT INR Fibrinogen Lupus Anticoagulant LA PTT Baseline POC ABG pH POC ABG pCO2 POC ABG pO2 Sodium Potassium Chloride Carbon Dioxide BUN 58 H Creatinine 2.7 H Glucose 146 H POC Glucose 134 H Lactic Acid Uric Acid Calcium 7.4 L Phosphorus 5.00 H Iron TIBC Erythropoietin Ferritin Total Bilirubin Direct Bilirubin AST ALT Alkaline Phosphatase Lactate Dehydrogenase C-Reactive Protein Serum Total Protein Total Protein Albumin Gsdea-8-Hzmpplnhy Abnorm Protein Band 1 PEP Interpretation Crossmatch 10/29/16 10/29/16 10/30/16 17:06 23:28 05:16 WBC RBC Hgb Hct MCV MCHC RDW Plt Count Seg Neuts % (Manual) Lymphocytes % (Manual) Nucleated RBC % Seg Neutrophils # Man Lymphocytes # (Manual) Haptoglobin PT INR Fibrinogen Lupus Anticoagulant LA PTT Baseline POC ABG pH POC ABG pCO2 POC ABG pO2 Sodium Potassium Chloride Carbon Dioxide BUN Creatinine Glucose POC Glucose 158 H 133 H 147 H Lactic Acid Uric Acid Calcium Phosphorus Iron TIBC Erythropoietin Ferritin Total Bilirubin Direct Bilirubin AST ALT Alkaline Phosphatase Lactate Dehydrogenase C-Reactive Protein Serum Total Protein Total Protein Albumin Npcvf-8-Harmcjsqi Abnorm Protein Band 1 PEP Interpretation Crossmatch 10/30/16 10/30/16 10/30/16 06:35 06:35 12:08 WBC 13.0 H RBC 3.08 L Hgb 9.3 L Hct 28.7 L MCV MCHC RDW 18.4 H Plt Count 73 L Seg Neuts % (Manual) Lymphocytes % (Manual) Nucleated RBC % Seg Neutrophils # Man Lymphocytes # (Manual) Haptoglobin PT INR Fibrinogen Lupus Anticoagulant LA PTT Baseline POC ABG pH POC ABG pCO2 POC ABG pO2 Sodium Potassium Chloride Carbon Dioxide BUN 86 H Creatinine 3.5 H Glucose 132 H POC Glucose 134 H Lactic Acid Uric Acid Calcium 7.1 L Phosphorus 5.90 H Iron TIBC Erythropoietin Ferritin Total Bilirubin Direct Bilirubin AST ALT Alkaline Phosphatase Lactate Dehydrogenase C-Reactive Protein Serum Total Protein Total Protein Albumin Pxelj-1-Qjlialazs Abnorm Protein Band 1 PEP Interpretation Crossmatch 10/30/16 10/30/16 10/31/16 18:02 23:31 05:21 WBC RBC Hgb Hct MCV MCHC RDW Plt Count Seg Neuts % (Manual) Lymphocytes % (Manual) Nucleated RBC % Seg Neutrophils # Man Lymphocytes # (Manual) Haptoglobin PT INR Fibrinogen Lupus Anticoagulant LA PTT Baseline POC ABG pH POC ABG pCO2 POC ABG pO2 Sodium Potassium Chloride Carbon Dioxide BUN Creatinine Glucose POC Glucose 142 H 152 H 152 H Lactic Acid Uric Acid Calcium Phosphorus Iron TIBC Erythropoietin Ferritin Total Bilirubin Direct Bilirubin AST ALT Alkaline Phosphatase Lactate Dehydrogenase C-Reactive Protein Serum Total Protein Total Protein Albumin Adpcg-1-Cabnplyje Abnorm Protein Band 1 PEP Interpretation Crossmatch 10/31/16 10/31/16 10/31/16 06:21 06:21 12:12 WBC 11.9 H RBC 2.82 L Hgb 8.6 L Hct 26.4 L MCV MCHC RDW 17.8 H Plt Count 56 L Seg Neuts % (Manual) Lymphocytes % (Manual) 0 L Nucleated RBC % Seg Neutrophils # Man 10.9 H Lymphocytes # (Manual) 0.0 L Haptoglobin PT INR Fibrinogen Lupus Anticoagulant LA PTT Baseline POC ABG pH POC ABG pCO2 POC ABG pO2 Sodium Potassium Chloride Carbon Dioxide 21 L BUN 107 H Creatinine 4.2 H Glucose 137 H POC Glucose 142 H Lactic Acid Uric Acid Calcium 7.2 L Phosphorus 6.50 H Iron TIBC Erythropoietin Ferritin Total Bilirubin Direct Bilirubin AST ALT Alkaline Phosphatase Lactate Dehydrogenase C-Reactive Protein Serum Total Protein Total Protein Albumin Qwmju-5-Nqbkvzidp Abnorm Protein Band 1 PEP Interpretation Crossmatch 10/31/16 10/31/16 11/01/16 17:34 23:46 05:15 WBC RBC Hgb Hct MCV MCHC RDW Plt Count Seg Neuts % (Manual) Lymphocytes % (Manual) Nucleated RBC % Seg Neutrophils # Man Lymphocytes # (Manual) Haptoglobin PT INR Fibrinogen Lupus Anticoagulant LA PTT Baseline POC ABG pH POC ABG pCO2 POC ABG pO2 Sodium Potassium Chloride Carbon Dioxide BUN Creatinine Glucose POC Glucose 180 H 131 H 148 H Lactic Acid Uric Acid Calcium Phosphorus Iron TIBC Erythropoietin Ferritin Total Bilirubin Direct Bilirubin AST ALT Alkaline Phosphatase Lactate Dehydrogenase C-Reactive Protein Serum Total Protein Total Protein Albumin Vxfkw-4-Ihkxjyuio Abnorm Protein Band 1 PEP Interpretation Crossmatch 11/01/16 11/01/16 11/01/16 06:00 06:00 11:45 WBC RBC 2.66 L Hgb 8.1 L Hct 24.8 L MCV MCHC RDW 17.7 H Plt Count 47 L Seg Neuts % (Manual) 88.0 H Lymphocytes % (Manual) 0 L Nucleated RBC % Seg Neutrophils # Man Lymphocytes # (Manual) 0.0 L Haptoglobin PT INR Fibrinogen Lupus Anticoagulant LA PTT Baseline POC ABG pH POC ABG pCO2 POC ABG pO2 Sodium 134 L Potassium Chloride 95.6 L Carbon Dioxide BUN 90 H Creatinine 3.5 H Glucose 154 H POC Glucose 169 H Lactic Acid Uric Acid Calcium 7.1 L Phosphorus 5.50 H Iron TIBC Erythropoietin Ferritin Total Bilirubin Direct Bilirubin AST ALT Alkaline Phosphatase Lactate Dehydrogenase C-Reactive Protein Serum Total Protein Total Protein Albumin Tkkob-8-Bhfwovtiv Abnorm Protein Band 1 PEP Interpretation Crossmatch 11/01/16 11/01/16 11/01/16 18:33 20:55 23:51 WBC RBC Hgb Hct MCV MCHC RDW Plt Count Seg Neuts % (Manual) Lymphocytes % (Manual) Nucleated RBC % Seg Neutrophils # Man Lymphocytes # (Manual) Haptoglobin PT INR Fibrinogen Lupus Anticoagulant LA PTT Baseline POC ABG pH POC ABG pCO2 POC ABG pO2 Sodium Potassium Chloride Carbon Dioxide BUN Creatinine Glucose POC Glucose 128 H 144 H Lactic Acid 3.10 H* Uric Acid Calcium Phosphorus Iron TIBC Erythropoietin Ferritin Total Bilirubin Direct Bilirubin AST ALT Alkaline Phosphatase Lactate Dehydrogenase C-Reactive Protein Serum Total Protein Total Protein Albumin Ufrkq-4-Rxwhdilfm Abnorm Protein Band 1 PEP Interpretation Crossmatch 11/02/16 11/02/16 11/02/16 05:15 05:15 05:24 WBC RBC 2.69 L Hgb 8.2 L Hct 25.1 L MCV MCHC RDW 16.9 H Plt Count 42 L Seg Neuts % (Manual) 94.0 H Lymphocytes % (Manual) 0 L Nucleated RBC % Seg Neutrophils # Man Lymphocytes # (Manual) 0.0 L Haptoglobin PT INR Fibrinogen Lupus Anticoagulant LA PTT Baseline POC ABG pH POC ABG pCO2 POC ABG pO2 Sodium 135 L Potassium Chloride 97.7 L Carbon Dioxide BUN 67 H Creatinine 2.8 H Glucose 107 H POC Glucose 119 H Lactic Acid Uric Acid Calcium 7.3 L Phosphorus 4.90 H Iron TIBC Erythropoietin Ferritin Total Bilirubin Direct Bilirubin AST ALT Alkaline Phosphatase Lactate Dehydrogenase C-Reactive Protein Serum Total Protein Total Protein Albumin Aglmo-1-Fepbewcpo Abnorm Protein Band 1 PEP Interpretation Crossmatch 11/02/16 11/02/16 11/02/16 06:07 09:26 10:00 WBC RBC 2.83 L Hgb 8.7 L Hct 26.5 L MCV MCHC RDW 17.4 H Plt Count 46 L Seg Neuts % (Manual) Lymphocytes % (Manual) Nucleated RBC % Seg Neutrophils # Man Lymphocytes # (Manual) Haptoglobin PT 19.9 H INR 1.69 H Fibrinogen Lupus Anticoagulant LA PTT Baseline POC ABG pH POC ABG pCO2 POC ABG pO2 Sodium Potassium Chloride Carbon Dioxide BUN Creatinine Glucose POC Glucose 111 H Lactic Acid Uric Acid Calcium Phosphorus Iron TIBC Erythropoietin Ferritin Total Bilirubin Direct Bilirubin AST ALT Alkaline Phosphatase Lactate Dehydrogenase C-Reactive Protein Serum Total Protein Total Protein Albumin Xelpn-5-Odjnulgph Abnorm Protein Band 1 PEP Interpretation Crossmatch Allied health notes reviewed: RT
[2016-11-02] MEDS ORDERED: NACL 0.9% 500 ML 500 ML IV ONE (11:18)
[2016-11-02] MEDS ORDERED: ANCEF/STERILE WATER 2 GM/20 ML 2 GM/20 ML SYRINGE IV NR (12:00)
--- NOTE | 2016-11-02 14:51 | Progress Note ---
Assessment and Plan - Patient Problems (1) Renal failure Current Visit: Yes Status: Acute Qualifiers: Renal failure chronicity: acute Acute renal failure type: unspecified Chronic kidney disease stage: C Qualified Code(s): N17.9 - Acute kidney failure, unspecified Plan to address problem: Received hemodialysis yesterday No acute indication for HD today Strict I/O monitoring Avoid Nephrotoxic agents Renally dose medications Obtain daily weights Monitor renal function daily (2) Acute respiratory failure Current Visit: Yes Status: Acute Qualifiers: Respiratory failure complication: hypoxia Qualified Code(s): J96.01 - Acute respiratory failure with hypoxia Plan to address problem: Intubated as per Pulmonary (3) Anemia Current Visit: Yes Status: Acute Qualifiers: Anemia type: unspecified type Iron deficiency anemia type: I Vitamin B12 deficiency anemia type: V Folate deficiency anemia type: F Bone marrow failure anemia type: B Hemolytic anemia type: H Other causes of anemia: O Qualified Code(s): D64.9 - Anemia, unspecified Plan to address problem: Monitor labs and transfuse as needed Hematology onboard (4) Thrombocytopenia Current Visit: Yes Status: Acute Plan to address problem: Hematology onboard (5) Atrial fibrillation Current Visit: Yes Status: Acute Qualifiers: Atrial fibrillation type: A Plan to address problem: On Labetalol Subjective Date of service: 11/02/16 Principal diagnosis: Sepsis Syndrome; MAHA; RAJESH; CHF; TTP Interval history: Patient remains intubated. Unresponsive. No family at bedside. Objective - Vital Signs Vital signs: Vital Signs - 12hr 11/02/16 11/02/16 11/02/16 03:00 03:47 04:00 Temperature 99.0 F Pulse Rate 75 78 82 Respiratory 18 18 Rate Blood Pressure 96/68 102/76 115/82 O2 Sat by Pulse 100 100 98 Oximetry 11/02/16 11/02/16 11/02/16 05:00 06:00 06:35 Temperature Pulse Rate 82 76 81 Respiratory 18 18 Rate Blood Pressure 112/84 113/85 118/88 O2 Sat by Pulse 99 99 100 Oximetry 11/02/16 11/02/16 11/02/16 07:00 08:00 10:36 Temperature 98.6 F Pulse Rate 79 78 141 H Respiratory 20 20 Rate Blood Pressure 119/88 117/87 103/71 O2 Sat by Pulse 100 100 Oximetry 11/02/16 12:00 Temperature 98.6 F Pulse Rate Respiratory Rate Blood Pressure O2 Sat by Pulse Oximetry - General Appearance General appearance: intubated EENT: ATNC Neck: no JVD Respiratory: Present: Decreased Breath Sounds Cardiology: irregular, S1S2 Gastrointestinal: normoactive bowel sounds Integumentary: warm and dry Neurologic: other (Unresponsive) Musculoskeletal: other (mild edema to BLE) - Lab 11/02/16 10:00 11/02/16 05:15 Most recent lab results Calcium 7.3 mg/dL (8.4-10.2) L 11/02/16 05:15 Phosphorus 4.90 mg/dL (2.5-4.5) H 11/02/16 05:15
[2016-11-02] MEDS ORDERED: NACL 0.9% 500 ML 500 ML ONE ×2 (14:59→15:47)
--- NOTE | 2016-11-02 15:03 | Progress Note ---
Assessment and Plan Assessment and plan: Patient is a 61-year-old man without known past medical history who presented to the emergency department [facility] on 10/13/16, complaining of bilateral leg swelling that worsened for the last 4 days. He was found to have severe metabolic acidosis, creatinine was 14.5 with hyperkalemia, emergent Hemodialysis was done. He was also found to have severe pancytopenia, thrombocytopenia and Dr. 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 He was on bipap and was intubated 10/16/16, details are not readily available on why he needed to be intubated, no nursing note for 10/16. -Acute encephalopathy, not sedated, see Neurologist note below -AFIB WITH RVR: Cardiology is following -Group B strep bacteremia: JONATHAN done on 10/27/16 but plt count too low, probably when plt count over 50k -Acute Respiratory failure with hypoxia, intubated: continue mv -Pancytopenia [leukopenia, severe anemia, Woresening thrombocytopenia] heme/onc is following, s/p PLASMAPHERSIS, s/p PRBC transfusion, s/p plt -ARF, renal tubular stasis, poa -secondary coagulopathy -Lactic acidosis -Probable TTP, await [id number] results -hypoglycemia -Acute systolic congestive heart failure EF around 30% -SEVERE SEPSIS, poa per Neurologist, Dr. Bernardo "61 YO M Hx HTN admitted 10/13 w/ sepsis w/ bacteremia, severe metabolic acidosis , RAJESH requiring emergent HD, severe pancytopenia, ? DIC vs. HUS vs. TTP on Plasmapheresis and acute respiratory failure with hypoxia s/p intubation. There has not been cleared documented episode of cardiac arrest but pt was hypotensive during admission. On exam eyes open to stimlation, stuporous MS poor concentration, paucity of speech, intact brainstem reflexes but not able to follow midline/peripheral commands w/ grossly intact motor-sensory exam as withdraws from pain in UE but triple flexion LE but otherwise grossly intact symmetric neurologic exam, consistent with toxic metabolic infectious derangement as the etiology for neurologic decompensation. CTH 10/13 vague L anterior internal capsule hypodensities and chronic lacunes L brainstem and L periventricular white matter. B12/TSH/NH4 normal. 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 No Stone dispensed d/t RAJESH. TTE w/o endocarditis/thrombus. Recommendations: 1. Check f/u CTH and CTA H/N 2. Cont Infectious work up/medical management for UTI, PNA, cellulitis, bacteremia, etc. 3. Avoid hyponatremia, hypo/hyper-calcemia, hypo/hyperglycemia, acidosis, hypoxia/hypoxemia, hypercarbia/hypercapnia 4. Avoid institution of any psychoactive medications (e.g. antihistamines, anticholinergics, BZD, hypnotics, opiates) as able unless low doses of low potency antipsychotic needed for behavioral issues complicating medical care 5. Thiamine/Folate/CIWA protocol accordingly for any hx obtained to suggest EtOH withdrawal 6. Cont home meds-there is no neurologic indication to change CTH confirms multifocal hemorrhagic lesions but no midline shift/compression of brain structures/significant mass effect and is actually improved from prior MRI. CTA H/N w/o vascular lesion. JONATHAN w/o endocarditis or source of emboli. 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 Recs: 1. Avoid all blood thinners until hemorrhage stable 2. BP control: goal < 140/90 using prn Labetalol/Hydralyzine/Nicardipine. Cont home BP med. 3. Cont Infectious work up/medical management for UTI, PNA, cellulitis, bacteremia, etc. 3. Avoid hyponatremia, hypo/hyper-calcemia, hypo/hyperglycemia, acidosis, hypoxia/hypoxemia, hypercarbia/hypercapnia 4. Avoid institution of any psychoactive medications (e.g. antihistamines, anticholinergics, BZD, hypnotics, opiates) as able unless low doses of low potency antipsychotic needed for behavioral issues complicating medical care 5. Thiamine/Folate/CIWA protocol accordingly for any hx obtained to suggest EtOH withdrawal 6. Cont home meds-there is no neurologic indication to change 7. DVT Prophylaxis: SCDs/TEDs 8. Dispo: PT/OT/CM evaluations" Trach and peg soon. History Interval history: Patient seen and examined. Follow up on respiratory failure, patient still intubated. Overnight uneventful. No cp, sob, n/v or severe headaches. Imaging, old records, testing, labs, nursing notes reviewed. Hospitalist Physical - Physical exam Narrative exam: GEN: Critically ill intubated but not sedated HEENT: Eyes are floating, ET tube in place CVS: irregular, NORMAL S1S2 LUNGS/CHEST: NORMAL CHEST EXPANSION B, GOOD AIR ENTRY B ABD: SOFT, POSITIVE BOWEL SOUNDS, NONDISTENDED, NO REBOUND OR GUARDING NEURO: CN 2-12 GROSSLY INTACT, he doesn't follow commands PSY: Unresponsive - Constitutional Vitals: Temp Pulse Resp BP Pulse Ox 98.6 F 141 H 20 103/71 100 11/02/16 12:00 11/02/16 10:36 11/02/16 08:00 11/02/16 10:36 11/02/16 08:00 General appearance: Present: severe distress, well-nourished Results - Labs CBC & Chem 7: 11/02/16 10:00 11/02/16 05:15 Labs: Laboratory Last Values WBC 9.7 K/mm3 (4.5-11.0) 11/02/16 10:00 RBC 2.83 M/mm3 (3.65-5.03) L 11/02/16 10:00 Hgb 8.7 gm/dl (11.8-15.2) L 11/02/16 10:00 Hct 26.5 % (35.5-45.6) L 11/02/16 10:00 MCV 94 fl (84-94) 11/02/16 10:00 MCH 31 pg (28-32) 11/02/16 10:00 MCHC 33 % (32-34) 11/02/16 10:00 RDW 17.4 % (13.2-15.2) H 11/02/16 10:00 Plt Count 46 K/mm3 (140-440) L 11/02/16 10:00 Lymph % (Auto) Mail Censor 10/14/16 04:34 Blair % (Auto) Mail Censor 10/14/16 04:34 Eos % (Auto) Mail Censor 10/14/16 04:34 Baso % (Auto) Mail Censor 10/14/16 04:34 Lymph # Mail Censor 10/14/16 04:34 Blair # Mail Censor 10/14/16 04:34 Eos # Mail Censor 10/14/16 04:34 Baso # Mail Censor 10/14/16 04:34 Add Manual Diff Complete 11/02/16 05:15 Total Counted 100 11/02/16 05:15 Seg Neutrophils % Mail Censor 11/02/16 05:15 Seg Neuts % (Manual) 94.0 % (40.0-70.0) H 11/02/16 05:15 Band Neutrophils % 6.0 % 11/02/16 05:15 Lymphocytes % (Manual) 0 % (13.4-35.0) L 11/02/16 05:15 Reactive Lymphs % (Man) 0 % 11/02/16 05:15 Monocytes % (Manual) 0 % (0.0-7.3) 11/02/16 05:15 Eosinophils % (Manual) 0 % (0.0-4.3) 11/02/16 05:15 Basophils % (Manual) 0 % (0.0-1.8) 11/02/16 05:15 Metamyelocytes % 0 % 11/02/16 05:15 Myelocytes % 0 % 11/02/16 05:15 Promyelocytes % 0 % 11/02/16 05:15 Blast Cells % 0 % 11/02/16 05:15 Nucleated RBC % Not Reportable 11/02/16 05:15 Seg Neutrophils # Mail Censor 10/14/16 04:34 Seg Neutrophils # Man 7.3 K/mm3 (1.8-7.7) 11/02/16 05:15 Band Neutrophils # 0.5 K/mm3 11/02/16 05:15 Lymphocytes # (Manual) 0.0 K/mm3 (1.2-5.4) L 11/02/16 05:15 Abs React Lymphs (Man) 0.0 K/mm3 11/02/16 05:15 Monocytes # (Manual) 0.0 K/mm3 (0.0-0.8) 11/02/16 05:15 Eosinophils # (Manual) 0.0 K/mm3 (0.0-0.4) 11/02/16 05:15 Basophils # (Manual) 0.0 K/mm3 (0.0-0.1) 11/02/16 05:15 Metamyelocytes # 0.0 K/mm3 11/02/16 05:15 Myelocytes # 0.0 K/mm3 11/02/16 05:15 Promyelocytes # 0.0 K/mm3 11/02/16 05:15 Blast Cells # 0.0 K/mm3 11/02/16 05:15 WBC Morphology Not Reportable 11/02/16 05:15 Hypersegmented Neuts Not Reportable 11/02/16 05:15 Hyposegmented Neuts Not Reportable 11/02/16 05:15 Hypogranular Neuts Not Reportable 11/02/16 05:15 Smudge Cells Not Reportable 11/02/16 05:15 Toxic Granulation Not Reportable 11/02/16 05:15 Toxic Vacuolation Not Reportable 11/02/16 05:15 Dohle Bodies Not Reportable 11/02/16 05:15 Pelger-Huet Anomaly Not Reportable 11/02/16 05:15 Madhu Rods Not Reportable 11/02/16 05:15 Platelet Estimate Appears decreased 11/02/16 05:15 Clumped Platelets Not Reportable 11/02/16 05:15 Plt Clumps, EDTA Not Reportable 11/02/16 05:15 Large Platelets Not Reportable 11/02/16 05:15 Giant Platelets Not Reportable 11/02/16 05:15 Platelet Satelliting Not Reportable 11/02/16 05:15 Plt Morphology Comment Not Reportable 11/02/16 05:15 RBC Morphology Not Reportable 11/02/16 05:15 Dimorphic RBCs Not Reportable 11/02/16 05:15 Polychromasia Not Reportable 11/02/16 05:15 Hypochromasia Not Reportable 11/02/16 05:15 Poikilocytosis Not Reportable 11/02/16 05:15 Basophilic Stippling Rare 10/21/16 10:30 Anisocytosis 1+ 11/02/16 05:15 Microcytosis Not Reportable 11/02/16 05:15 Macrocytosis Not Reportable 11/02/16 05:15 Spherocytes Few 11/02/16 05:15 Pappenheimer Bodies Not Reportable 11/02/16 05:15 Sickle Cells Not Reportable 11/02/16 05:15 Target Cells Not Reportable 11/02/16 05:15 Tear Drop Cells Not Reportable 11/02/16 05:15 Ovalocytes Not Reportable 11/02/16 05:15 Stomatocytes Few 10/28/16 05:45 Helmet Cells Not Reportable 11/02/16 05:15 [place] Bodies Not Reportable 11/02/16 05:[address] [place] Rings Not Reportable 11/02/16 05:15 Sabrina Cells Not Reportable 11/02/16 05:15 Bite Cells Not Reportable 11/02/16 05:15 Crenated Cell Not Reportable 11/02/16 05:15 Elliptocytes Not Reportable 11/02/16 05:15 Acanthocytes (Spur) Not Reportable 11/02/16 05:15 Rouleaux Not Reportable 11/02/16 05:15 Hemoglobin C Crystals Not Reportable 11/02/16 05:15 Schistocytes Not Reportable 11/02/16 05:15 Malaria parasites Not Reportable 11/02/16 05:15 ESR 77 mm/Hr (0-20) 10/14/16 04:34 Pal Bodies Not Reportable 11/02/16 05:15 Haptoglobin <15 mg/dL (43-212) L 10/15/16 12:00 Hem Pathologist Commnt No 11/02/16 05:15 PT 19.9 Sec. (12.2-14.9) H 11/02/16 09:26 INR 1.69 (0.87-1.13) H 11/02/16 09:26 Fibrinogen 557 mg/dl (211-480) H 10/14/16 09:58 Lupus Anticoagulant see below H 10/14/16 03:00 LA PTT Baseline 55 sec (<=40) H 10/14/16 03:00 dRVVT Confirm Interp Negative (Negative) 10/14/16 03:00 POC ABG pH 7.410 (7.35-7.45) 10/28/16 12:51 POC ABG pCO2 37.8 (35-45) 10/28/16 12:51 POC ABG pO2 93 (80-105) 10/28/16 12:51 POC ABG HCO3 24.0 10/28/16 12:51 POC ABG Total CO2 25 10/28/16 12:51 POC ABG O2 Sat 97 10/28/16 12:51 POC ABG Base Excess -1 10/28/16 12:51 FiO2 25 % 10/28/16 12:51 Sodium 135 mmol/L (137-145) L 11/02/16 05:15 Potassium 4.4 mmol/L (3.6-5.0) 11/02/16 05:15 Chloride 97.7 mmol/L (98-107) L 11/02/16 05:15 Carbon Dioxide 23 mmol/L (22-30) 11/02/16 05:15 Anion Gap 19 mmol/L 11/02/16 05:15 BUN 67 mg/dL (9-20) H 11/02/16 05:15 Creatinine 2.8 mg/dL (0.8-1.5) H 11/02/16 05:15 Estimated GFR 23 ml/min 11/02/16 05:15 BUN/Creatinine Ratio 23.92 % 11/02/16 05:15 Glucose 107 mg/dL (75-100) H 11/02/16 05:15 POC Glucose 96 (70-105) 11/02/16 12:13 Lactic Acid 3.10 mmol/L (0.7-2.0) H* 11/01/16 20:55 Uric Acid 8.0 mg/dL (3.5-7.6) H 10/14/16 03:00 Calcium 7.3 mg/dL (8.4-10.2) L 11/02/16 05:15 Phosphorus 4.90 mg/dL (2.5-4.5) H 11/02/16 05:15 Iron 146 ug/dL (49-181) 10/15/16 05:35 TIBC 166 mcg/dL (250-450) L 10/15/16 05:35 Erythropoietin 148.2 mIU/mL (2.6-18.5) H 10/19/16 14:15 Ferritin 9562.0 ng/mL (13.0-400.0) H 10/15/16 05:35 Total Bilirubin 2.10 mg/dL (0.1-1.2) H 10/24/16 07:00 Direct Bilirubin 1.1 mg/dL (0-0.2) H 10/14/16 09:58 Indirect Bilirubin 0.2 mg/dL 10/14/16 09:58 AST 68 units/L (5-40) H 10/24/16 07:00 ALT 46 units/L (7-56) 10/24/16 07:00 Alkaline Phosphatase 224 units/L (35-129) H 10/24/16 07:00 Ammonia 32.0 umol/L (25-60) 10/19/16 14:15 Lactate Dehydrogenase 3871 units/L (91-180) H 10/15/16 05:35 Troponin T 0.079 ng/mL (0.00-0.029) H 10/13/16 10:14 C-Reactive Protein 7.40 mg/dL (0.00-1.30) H 10/24/16 16:30 NT-Pro-B Natriuret Pep > 49671 pg/mL (0-900) H 10/13/16 10:14 Serum Total Protein 5.6 g/dL (6.1-8.1) L 10/13/16 14:50 Total Protein 4.8 g/dL (6.3-8.2) L 10/24/16 07:00 Albumin 2.3 g/dL (3.9-5) L 10/24/16 07:00 Albumin/Globulin Ratio 0.9 % 10/24/16 07:00 Pilxx-0-Mpnafemom 0.5 g/dL (0.2-0.3) H 10/13/16 14:50 Nmnpi-6-Uucznzjcq 0.6 g/dL (0.5-0.9) 10/13/16 14:50 Beta Globulins 0.3 g/dL (0.2-0.5) 10/13/16 14:50 Gamma Globulins 1.7 g/dL (0.8-1.7) 10/13/16 14:50 Abnorm Protein Band 1 1.4 g/dL H 10/13/16 14:50 PEP Interpretation see below H 10/13/16 14:50 Triglycerides 119 mg/dL (2-149) 10/13/16 10:14 Cholesterol 71 mg/dL (50-199) 10/13/16 10:14 LDL Cholesterol Direct 41 mg/dL (50-130) L 10/13/16 10:14 HDL Cholesterol 7 mg/dL (40-59) L 10/13/16 10:14 Cholesterol/HDL Ratio 10.14 % 10/13/16 10:14 Lipase 21 units/L (13-60) 10/15/16 05:35 Vitamin B12 893.9 pg/mL (211-911) 10/14/16 03:00 TSH 0.526 mlU/mL (0.270-4.200) 10/19/16 14:15 Random Vancomycin 19.2 ug/mL (0-40.0) 11/01/16 06:00 IgG 1040 mg/dL (694-1618) 10/19/16 14:15 IgA 149 mg/dL (81-463) 10/19/16 14:15 IgM 53 mg/dL (48-271) 10/19/16 14:15 XU Screen Negative (Negative) 10/13/16 14:50 Proteinase 3 (PR3) Ab <1.0 AI (<1.0) 10/13/16 14:50 Myeloperoxidase Ab <1.0 AI (<1.0) 10/13/16 14:50 Glomerular Base Mem IgG <1.0 AI (<1.0) 10/13/16 14:50 Complement C3 101 mg/dL (90-180) 10/13/16 14:50 Complement C4 16 mg/dL (16-47) 10/13/16 14:50 Hep Bs Antigen Non-reactive (Negative) 10/13/16 14:50 Hepatitis C Antibody Non-reactive (NonReactive) 10/13/16 14:50 HIV 1&2 Antibody Rapid Non react (Non React) 10/13/16 14:50 HIV P24 Antigen Non react (Non React) 10/13/16 14:50 Schistocytes Smear None seen 10/15/16 12:00 Flow Intrp 16+ Markers Scanned into [facility] rec 10/14/16 11:30 Flow Cytometry Interp Scanned into [facility] rec 10/14/16 11:30 Miscellaneous Test Flexitest 1 10/26/16 06:15 Blood Type O POSITIVE 10/24/16 11:45 Antibody Screen TNR 10/24/16 11:45 MADIHA Antibody Screen Negative 10/24/16 11:45 Direct Antiglob Test Negative 10/14/16 03:00 ELAINE, Poly Interpret Negative 10/14/16 03:00 Crossmatch See Detail 10/24/16 11:45
[2016-11-02] MEDS ORDERED: ZEMURON IV ONE (15:08)
[2016-11-02] MEDS ORDERED: VERSED ONE (15:09)
[2016-11-02] MEDS ORDERED: DIPRIVAN 10 MG/ML IV ONE ×2 (15:09)
[2016-11-02] MEDS ORDERED: ANCEF ONE (15:28)
[2016-11-02] MEDS ORDERED: NACL P/F VIAL (10 ML) 20 ML ONE (15:28)
[2016-11-02] MEDS ORDERED: AMIDATE IV ONE (15:28)
--- NOTE | 2016-11-02 17:09 | Operative Report ---
Operative Report Operative Report: Pre-op diagnosis: Respiratory failure Post-op diagnosis: Same Procedure: Percutaneous tracheostomy Surgeons: Abbie Torres Anesthesia: TAWNY Complications: none Condition: stable Procedure: This patient's neck was prepared/draped in sterile fashion. The FIO2 on the ventilator was placed at 1.00 and the patient was saturating at 100%. 1% lidocaine was then used to infiltrate the skin over an area just below the thyroid and cricoid cartilege. A scalpel was used to make a small vertical incision. The endotrcaheal tube was then pulled back to 16 cm at the teeth. The finder needle was then used to access the trachea. A guidewire was then passed through the needle and into the trachea. The small dilator was then passed over the guidewire to dilate the soft tissue tract. The larger dilator was then passed over the guidewire to further dilate the tract. The trachea was then placed over the 28F dilator and placed into the trachea. A CO2 indicator was then used to confirm end tidal CO2. The tracheostomy was then secured to the skin with prolene sutures. The patient tolerated the procedure well.
--- NOTE | 2016-11-02 17:16 | Operative Report ---
Operative Report Operative Report: Pre-op diagnosis - respiratory failure Post-op diagnosis - same Procedure - PEG tube insertion Surgeon - Abbie Torres Anesthesia - General Complications - none Procedure - The patient's abdomen was prepared and draped in sterile fashion. An endoscope was used to visualize the stomach and it was insufflated with air. The endoscope light was then used to transilluminate the abdominal wall. Using the finder needle, the stomach was accessed through the abdominal wall. The PEG tube snare was then passed through the endoscope into the stomach. The guidewire was then passed through the finder needle. The snare was then used to loop around the guidewire and pulled out through the patient's mouth. A 20F PEG tube was then looped at the end of the guidewire and pulled back throuhg the stomach and out through the abdominal wall. The placement of the PEG tube was confirmed with the endoscope. The PEG tube was secured into place at 3 cm. The patient tolerated the procedure well.
--- NOTE | 2016-11-02 22:52 | Consultation ---
History of Present Illness - Reason for Consult Consult date: 11/02/16 - History of Present Illness Patient seen/examined, Clinically unchanged. labs reviewed, no new issues at this time. Past History Past Medical History: hypertension, other (Had shingles in November 25-) Past Surgical History: No surgical history Social history: , full code, other (Patienti s and lives with his ). denies: smoking, alcohol abuse, prescription drug abuse, IV drug use Family history: no significant family history Medications and Allergies Allergies Allergy/AdvReac Type Severity Reaction Status Date / Time No Known Allergies Allergy Unverified 10/13/16 09:41 Home Medications Medication Instructions Recorded Confirmed Last Taken Type Naproxen Sodium [Aleve TAB] 2 tab PO Q8H PRN 10/13/16 10/13/16 10/12/16 14:00 History Active Meds: Active Medications Acetaminophen (Tylenol) 1,000 mg AK Q4H PRN PRN Reason: Pain, Mild (1-3) Last Admin: 10/20/16 15:40 Dose: 1,000 mg Acetaminophen (Tylenol) 650 mg FEEDTUBE Q6H PRN PRN Reason: Pain, Mild (1-3) Last Admin: 10/24/16 10:56 Dose: 650 mg Alteplase, Recombinant (Cathflo) 4 mg IV ROD PRN PRN Reason: hemodialysis Last Admin: 11/02/16 09:37 Dose: 4 mg Lipase/Protease/Amylase (Pancreaze Dr 10,500 Unit) 1 each FEEDTUBE PRN PRN PRN Reason: For Clogged Feeding Tube Dextrose (D50w (25gm)) 25 ml IV PRN PRN PRN Reason: Hypoglycemia Last Admin: 10/18/16 07:20 Dose: 25 ml Diphenhydramine HCl (Benadryl) 50 mg IV Q6H PRN PRN Reason: Itching Last Admin: 10/24/16 10:57 Dose: 50 mg Famotidine (Pepcid) 20 mg PO Q24H EDWINA Last Admin: 11/02/16 10:37 Dose: 20 mg Haloperidol Lactate (Haldol) 5 mg IM Q6H PRN PRN Reason: Agitation Last Admin: 10/14/16 21:11 Dose: 5 mg Heparin Sodium (Porcine) (Heparin) 10,000 unit IV ROD PRN PRN Reason: for plasmapheresis- vascath Last Admin: 11/01/16 18:30 Dose: 10,000 unit Hydrocortisone Sodium Succinate (Solu-Cortef) 60 mg IV Q8HR EDWINA Last Admin: 11/02/16 14:44 Dose: 60 mg Hydrophilic Ointment (Vaseline Lip Therapy) 1 applic TP Q2H PRN PRN Reason: Dry Lips Propofol (Diprivan 10 Mg/Ml) 1,000 mg in 100 mls @ 1.827 mls/hr IV TITR EDWINA; 5 MCG/KG/MIN PRN Reason: Protocol Last Titration: 10/20/16 10:12 Dose: 0 mcg/kg/min, 0 mls/hr Fentanyl Citrate (Fentanyl Drip Premix) 2,000 mcg in 100 mls @ 3.045 mls/hr IV TITR EDWINA; 1 MCG/KG/HR PRN Reason: Protocol Sodium Chloride (Nacl 0.9%) 100 mls @ 999 mls/hr IV ROD PRN PRN Reason: Hypotension Cefazolin Sodium (Ancef/Sterile Water 2 Gm/20 Ml) 2 gm in 20 mls @ 80 mls/hr IV PREOP NR PRN Reason: Protocol Stop: 11/03/16 23:59 Insulin Aspart (Novolog) 0 units SUB-Q Q6HR EDWINA PRN Reason: Protocol Last Admin: 11/02/16 18:00 Dose: Not Given Labetalol HCl (Normodyne) 20 mg IV Q6H PRN PRN Reason: Hypertension Last Admin: 10/25/16 05:33 Dose: 20 mg Loperamide HCl (Imodium A-D) 2 mg PO Q2H PRN PRN Reason: Diarrhea Last Admin: 10/31/16 18:28 Dose: 2 mg Metoprolol Tartrate (Lopressor) 25 mg PO BID EDWINA Last Admin: 11/02/16 21:50 Dose: Not Given Multi-Ingred Cream/Lotion/Oil/Oint (Artificial Tears Ophth Oint) 1 applic OU Q4H PRN PRN Reason: Dry Eye(s) Ondansetron HCl (Zofran) 4 mg IV Q8H PRN PRN Reason: Nausea And Vomiting Simple Syrup (Simple Syrup) 15 ml FEEDTUBE PRN PRN PRN Reason: Hypoglycemia Simple Syrup (Simple Syrup) 30 ml FEEDTUBE PRN PRN PRN Reason: Hypoglycemia Sodium Bicarbonate (Sodium Bicarbonate) 325 mg FEEDTUBE PRN PRN PRN Reason: For Clogged Feeding Tube Last Admin: 11/02/16 11:08 Dose: 325 mg Sodium Chloride (Sodium Chloride Flush Syringe 10 Ml) 10 ml IV PRN PRN PRN Reason: LINE FLUSH Last Admin: 10/17/16 20:45 Dose: 10 ml Exam - Constitutional Vitals: Temp Pulse Resp BP Pulse Ox 99.9 F H 88 24 85/57 99 11/02/16 19:51 11/02/16 21:50 11/02/16 18:00 11/02/16 21:50 11/02/16 20:23 General appearance: Present: severe distress - EENT Eyes: Present: PERRL - Neck Neck: Present: supple, normal ROM - Cardiovascular Heart Sounds: Present: S1 & S2. Absent: rub, click - Extremities Extremities: pulses symmetrical, No edema Peripheral Pulses: within normal limits - Abdominal General gastrointestinal: Present: soft, non-tender, non-distended, normal bowel sounds Male genitourinary: Present: deferred - Rectal Rectal Exam: deferred - Integumentary Integumentary: Present: clear, warm, dry Results - Labs CBC & Chem 7: 11/02/16 10:00 11/02/16 05:15 Labs: Abnormal lab results 10/24/16 11/01/16 11/02/16 Range/Units 11:45 23:51 05:15 RBC 2.69 L (3.65-5.03) M/mm3 Hgb 8.2 L (11.8-15.2) gm/dl Hct 25.1 L (35.5-45.6) % RDW 16.9 H (13.2-15.2) % Plt Count 42 L (140-440) K/mm3 Seg Neuts % (Manual) 94.0 H (40.0-70.0) % Lymphocytes % (Manual) 0 L (13.4-35.0) % Lymphocytes # (Manual) 0.0 L (1.2-5.4) K/mm3 PT (12.2-14.9) Sec. INR (0.87-1.13) Sodium (137-145) mmol/L Chloride (98-107) mmol/L BUN (9-20) mg/dL Creatinine (0.8-1.5) mg/dL Glucose (75-100) mg/dL POC Glucose 144 H (70-105) Calcium (8.4-10.2) mg/dL Phosphorus (2.5-4.5) mg/dL Crossmatch See Detail 11/02/16 11/02/16 11/02/16 Range/Units 05:15 05:24 06:07 RBC (3.65-5.03) M/mm3 Hgb (11.8-15.2) gm/dl Hct (35.5-45.6) % RDW (13.2-15.2) % Plt Count (140-440) K/mm3 Seg Neuts % (Manual) (40.0-70.0) % Lymphocytes % (Manual) (13.4-35.0) % Lymphocytes # (Manual) (1.2-5.4) K/mm3 PT (12.2-14.9) Sec. INR (0.87-1.13) Sodium 135 L (137-145) mmol/L Chloride 97.7 L (98-107) mmol/L BUN 67 H (9-20) mg/dL Creatinine 2.8 H (0.8-1.5) mg/dL Glucose 107 H (75-100) mg/dL POC Glucose 119 H 111 H (70-105) Calcium 7.3 L (8.4-10.2) mg/dL Phosphorus 4.90 H (2.5-4.5) mg/dL Crossmatch 11/02/16 11/02/16 Range/Units 09:26 10:00 RBC 2.83 L (3.65-5.03) M/mm3 Hgb 8.7 L (11.8-15.2) gm/dl Hct 26.5 L (35.5-45.6) % RDW 17.4 H (13.2-15.2) % Plt Count 46 L (140-440) K/mm3 Seg Neuts % (Manual) (40.0-70.0) % Lymphocytes % (Manual) (13.4-35.0) % Lymphocytes # (Manual) (1.2-5.4) K/mm3 PT 19.9 H (12.2-14.9) Sec. INR 1.69 H (0.87-1.13) Sodium (137-145) mmol/L Chloride (98-107) mmol/L BUN (9-20) mg/dL Creatinine (0.8-1.5) mg/dL Glucose (75-100) mg/dL POC Glucose (70-105) Calcium (8.4-10.2) mg/dL Phosphorus (2.5-4.5) mg/dL Crossmatch Assessment and Plan - Patient Problems (1) Anemia Current Visit: Yes Status: Acute Qualifiers: Anemia type: unspecified type Iron deficiency anemia type: I Vitamin B12 deficiency anemia type: V Folate deficiency anemia type: F Bone marrow failure anemia type: B Hemolytic anemia type: H Other causes of anemia: O Qualified Code(s): D64.9 - Anemia, unspecified Plan to address problem: post transfusion. remains stable. (2) Leucopenia Current Visit: Yes Status: Acute Qualifiers: Leukopenia type: unspecified Neutropenia type: N Qualified Code(s): D72.819 - Decreased white blood cell count, unspecified Plan to address problem: same as above. resolved. Same as above (3) Renal failure Current Visit: Yes Status: Acute Qualifiers: Renal failure chronicity: acute Acute renal failure type: unspecified Chronic kidney disease stage: C Qualified Code(s): N17.9 - Acute kidney failure, unspecified Plan to address problem: See w/up, and renal service. see notes Follow photographic spotter.
[2016-11-03 04:52] LABS: Hematocrit 21.9 % (35.5-45.6); Mean Corpuscular HGB Conc 32 % (32-34); Mean Corpuscular Hemoglobin 30 pg (28-32); Mean Corpuscular Volume 94 fl (84-94); Red Blood Count 2.34 M/mm3 (3.65-5.03); Red Cell Distribution Width 17.6 % (13.2-15.2); White Blood Count 8.1 K/mm3 (4.5-11.0)
[2016-11-03 05:02] LABS: INR 1.98 (0.87-1.13); Platelet Count 49 K/mm3 (140-440)
[2016-11-03 05:10] LABS: BUN/Creatinine Ratio 26.25; Chloride 94.6 mmol/L (98-107); Phosphorous 5.8 mg/dL (2.5-4.5); Potassium 4.9 mmol/L (3.6-5.0)
[2016-11-03] MEDS: NOVOLOG SUB-Q SCH ×6 (05:22→19:05)
[2016-11-03 06:31] LABS: Basophils % (Manual) 0 % (0.0-1.8); Blastocytes % (Manual) 0 %; Eosinophils % (Manual) 0 % (0.0-4.3); Total Cells Counted Percent 0
[2016-11-03 06:32] LABS: Anisocytosis 2+; Diff Status Complete; Hypochromasia Few; Large Platelets Few; Microcytosis 1+; Platelet Estimate Appears Decreased
--- NOTE | 2016-11-03 09:40 | Progress Note ---
Assessment and Plan (1) Renal failure Current Visit: Yes Status: Acute Qualifiers: Renal failure chronicity: acute Acute renal failure type: unspecified Chronic kidney disease stage: C Qualified Code(s): N17.9 - Acute kidney failure, unspecified Plan to address problem: HD today for clearance and volume removal Strict I/O monitoring Avoid Nephrotoxic agents Renally dose medications Obtain daily weights Monitor renal function daily (2) Acute respiratory failure Current Visit: Yes Status: Acute Qualifiers: Respiratory failure complication: hypoxia Qualified Code(s): J96.01 - Acute respiratory failure with hypoxia Plan to address problem: s/p trach (3) Anemia Current Visit: Yes Status: Acute Qualifiers: Anemia type: unspecified type Iron deficiency anemia type: I Vitamin B12 deficiency anemia type: V Folate deficiency anemia type: F Bone marrow failure anemia type: B Hemolytic anemia type: H Other causes of anemia: O Qualified Code(s): D64.9 - Anemia, unspecified Plan to address problem: Monitor labs and transfuse as needed Hematology onboard (4) Thrombocytopenia Current Visit: Yes Status: Acute Plan to address problem: Hematology onboard (5) Atrial fibrillation Current Visit: Yes Status: Acute Qualifiers: Atrial fibrillation type: A Plan to address problem: On Labetalol Subjective Date of service: 11/03/16 Principal diagnosis: Sepsis Syndrome; MAHA; RAJESH; CHF; TTP Interval history: on the vent, no family at bedside Objective - Vital Signs Vital signs: Vital Signs - 12hr 11/02/16 11/02/16 11/02/16 21:50 22:00 23:00 Temperature Pulse Rate 88 89 89 Respiratory 27 H 23 Rate Blood Pressure 85/57 93/58 78/50 O2 Sat by Pulse 99 100 Oximetry 11/03/16 11/03/16 11/03/16 00:00 00:13 01:00 Temperature 100.3 F H Pulse Rate 89 89 89 Respiratory 28 H 22 Rate Blood Pressure 80/53 77/47 81/52 O2 Sat by Pulse 99 98 Oximetry 11/03/16 11/03/16 11/03/16 01:30 02:00 02:30 Temperature Pulse Rate 88 91 H 93 H Respiratory 23 24 23 Rate Blood Pressure 77/49 83/53 O2 Sat by Pulse 98 Oximetry 11/03/16 11/03/16 11/03/16 03:00 03:30 04:00 Temperature 99.8 F H Pulse Rate 91 H 93 H 99 H Respiratory 24 19 34 H Rate Blood Pressure 80/54 82/58 100/75 O2 Sat by Pulse 100 100 Oximetry 11/03/16 11/03/16 11/03/16 04:30 05:00 05:30 Temperature Pulse Rate 96 H 101 H 90 Respiratory 18 34 H 24 Rate Blood Pressure 96/66 106/76 83/56 O2 Sat by Pulse 99 100 99 Oximetry 11/03/16 11/03/16 11/03/16 06:00 06:30 06:53 Temperature Pulse Rate 101 H 91 H 95 H Respiratory 29 H 27 H Rate Blood Pressure 107/80 O2 Sat by Pulse 99 97 Oximetry - General Appearance General appearance: intubated EENT: mucous membranes dry Neck: no JVD Respiratory: Present: Decreased Breath Sounds Cardiology: irregular Gastrointestinal: hypoactive bowel sounds Integumentary: no rash, warm and dry Neurologic: other (does not follow commands) Musculoskeletal: other (1-2+ pitting edema in BLE) Psychiatric: other (does not answer questions) - Lab 11/03/16 03:25 11/03/16 03:25 Most recent lab results Calcium 7.0 mg/dL (8.4-10.2) L 11/03/16 03:25 Phosphorus 5.80 mg/dL (2.5-4.5) H 11/03/16 03:25
[2016-11-03] MEDS: PEPCID PO SCH (09:46)
[2016-11-03] MEDS: LOPRESSOR PO SCH ×2 (10:00→21:30)
--- NOTE | 2016-11-03 11:34 | Post Anesthesia Evaluation ---
- Post Anesthesia Evaluation Patient Participated: No Airway Patent: Yes Stable Respiratory Function: Yes Nausea/Vomiting: No Temp > 96.8F: Yes Pain Manageable: Yes Adequeate Hydration: Yes Anesthesia Complications: No Block Receding Appropriately: Not Applicable Patient on Ventilator: Yes
--- NOTE | 2016-11-03 12:11 | Progress Note ---
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 - continue HD/UF per nephrology recs - follow I's and O's (no urine in do bag) - correct electrolytes prn - avoid nephrotoxins - per nephrology otherwise (3) Metabolic acidosis Current Visit: Yes Status: Acute Plan to address problem: - mixed etiology - Lactic Acidosis component resolved - sepsis may have been driving force for that - RAJESH component - continue HD/UF per nephrology prescription - complete Anti-infectives per ID recs (4) CHF (congestive heart failure) Current Visit: Yes Status: Acute Qualifiers: Congestive heart failure type: C Congestive heart failure chronicity: C Plan to address problem: - ECHO consistent with possible infiltrating disease - cardiology consulted - EF 30& - s/p volume resuscitation for sepsis - per cardiology otherwise - JONATHAN negative (5) Pancytopenia Current Visit: Yes Status: Acute Plan to address problem: - hematology on case - continuing plasmapheresis - may need bone marrow evaluation - follow platelet count (seems to be trending back down) (6) Acute encephalopathy Current Visit: Yes Status: Acute Plan to address problem: - CT brain negative - likely toxic-metabolic encephalopathy element also - MRI abnormal - neurology evaluation ongoing - following clinically (7) Hypoglycemia Current Visit: Yes Status: Acute Plan to address problem: - improved - suspect sepsis related element - will continue systemic steroids but taper - also continue enteral nutrition - glycemic control via SSI at this point (8) Sepsis syndrome Current Visit: Yes Status: Acute Plan to address problem: - s/p antibiotic course - ID on case - CRP and lactate much improved - JONATHAN negative - following clinically - c-diff assay negative - Anti-infectives per ID recs (9) Discharge planning issues Current Visit: Yes Status: Acute Plan to address problem: - he remains critically ill on life sustaining interventions including MVS and at risk for further deterioration including ...32' CCT Subjective Date of service: 11/03/16 Principal diagnosis: Sepsis Syndrome; MAHA; RAJESH; CHF; TTP Interval history: Seen and examined at bedside; 24 hour events reviewed; nursing and respiratory care staff consulted; no adverse overnight events reported to me; remains on MVS ; tolerated only a few hours on PSV 03/02 earlier; AMS is persistent; no emesis or overt aspiration Objective Vital Signs - 12hr 11/03/16 11/03/16 11/03/16 00:13 01:00 01:30 Temperature Pulse Rate 89 89 88 Respiratory 22 23 Rate Blood Pressure 77/47 81/52 O2 Sat by Pulse 98 Oximetry 11/03/16 11/03/16 11/03/16 02:00 02:30 03:00 Temperature Pulse Rate 91 H 93 H 91 H Respiratory 24 23 24 Rate Blood Pressure 77/49 83/53 80/54 O2 Sat by Pulse 98 Oximetry 11/03/16 11/03/16 11/03/16 03:30 04:00 04:30 Temperature 99.8 F H Pulse Rate 93 H 99 H 96 H Respiratory 19 34 H 18 Rate Blood Pressure 82/58 100/75 96/66 O2 Sat by Pulse 100 100 99 Oximetry 11/03/16 11/03/16 11/03/16 05:00 05:30 06:00 Temperature Pulse Rate 101 H 90 101 H Respiratory 34 H 24 29 H Rate Blood Pressure 106/76 83/56 107/80 O2 Sat by Pulse 100 99 99 Oximetry 11/03/16 11/03/16 11/03/16 06:30 06:53 08:00 Temperature 99.3 F Pulse Rate 91 H 95 H Respiratory 27 H Rate Blood Pressure O2 Sat by Pulse 97 Oximetry 11/03/16 10:31 Temperature Pulse Rate 94 H Respiratory 32 H Rate Blood Pressure 88/60 O2 Sat by Pulse 99 Oximetry Constitutional: no acute distress, other (lethargic to encephalopathic) Eyes: non-icteric ENT: oropharynx moist Neck: supple, no lymphadenopathy Effort: mildly labored Ascultation: Bilateral: diminished breath sounds, rales Cardiovascular: irregular rhythm Gastrointestinal: normoactive bowel sounds, soft, non-tender, non-distended Integumentary: normal Extremities: no cyanosis, pulses normal, no ischemia or petechiae, edema Neurologic: pupils equal and round, unable to assess Psychiatric: other (unable to assess) CBC and BMP: 11/03/16 03:25 11/03/16 03:25 ABG, PT/INR, D-dimer: ABG POC ABG pH 7.410 (7.35-7.45) 10/28/16 12:51 POC ABG pCO2 37.8 (35-45) 10/28/16 12:51 POC ABG pO2 93 (80-105) 10/28/16 12:51 POC ABG HCO3 24.0 10/28/16 12:51 POC ABG Total CO2 25 10/28/16 12:51 POC ABG O2 Sat 97 10/28/16 12:51 PT/INR, D-dimer PT 22.5 Sec. (12.2-14.9) H 11/03/16 03:25 INR 1.98 (0.87-1.13) H 11/03/16 03:25 Abnormal lab findings: Abnormal Labs 10/13/16 10/13/16 10/13/16 14:50 21:40 22:05 WBC RBC Hgb Hct MCV MCHC RDW Plt Count Seg Neuts % (Manual) Lymphocytes % (Manual) Nucleated RBC % Seg Neutrophils # Man Lymphocytes # (Manual) Haptoglobin PT INR Fibrinogen Lupus Anticoagulant LA PTT Baseline POC ABG pH POC ABG pCO2 POC ABG pO2 Sodium Potassium Chloride Carbon Dioxide BUN Creatinine Glucose POC Glucose 52 L 43 L Lactic Acid Uric Acid Calcium Phosphorus Iron TIBC Erythropoietin Ferritin Total Bilirubin Direct Bilirubin AST ALT Alkaline Phosphatase Lactate Dehydrogenase C-Reactive Protein Serum Total Protein 5.6 L Total Protein Albumin 2.2 L Vhvct-7-Zkoukxyyh 0.5 H Abnorm Protein Band 1 1.4 H PEP Interpretation see below H Crossmatch 10/13/16 10/14/16 10/14/16 23:18 03:00 03:00 WBC RBC Hgb Hct MCV MCHC RDW Plt Count Seg Neuts % (Manual) Lymphocytes % (Manual) Nucleated RBC % Seg Neutrophils # Man Lymphocytes # (Manual) Haptoglobin PT INR Fibrinogen Lupus Anticoagulant see below H LA PTT Baseline 55 H POC ABG pH POC ABG pCO2 POC ABG pO2 Sodium Potassium Chloride Carbon Dioxide BUN Creatinine Glucose POC Glucose 113 H Lactic Acid Uric Acid Calcium Phosphorus Iron TIBC Erythropoietin Ferritin Total Bilirubin Direct Bilirubin AST ALT Alkaline Phosphatase Lactate Dehydrogenase 406 H C-Reactive Protein Serum Total Protein Total Protein Albumin Vvnxk-9-Vwsrpxjtz Abnorm Protein Band 1 PEP Interpretation Crossmatch 10/14/16 10/14/16 10/14/16 03:00 03:00 04:34 WBC 1.3 L* RBC 2.33 L Hgb 7.3 L Hct 21.7 L MCV MCHC RDW 19.8 H Plt Count 99 L Seg Neuts % (Manual) Lymphocytes % (Manual) 3.0 L Nucleated RBC % Seg Neutrophils # Man 0.9 L Lymphocytes # (Manual) 0.0 L Haptoglobin PT INR Fibrinogen Lupus Anticoagulant LA PTT Baseline POC ABG pH POC ABG pCO2 POC ABG pO2 Sodium Potassium Chloride Carbon Dioxide 18 L BUN 73 H Creatinine 9.8 H Glucose 59 L POC Glucose Lactic Acid Uric Acid 8.0 H Calcium 8.2 L Phosphorus 6.60 H Iron 13 L TIBC 160 L Erythropoietin Ferritin Total Bilirubin Direct Bilirubin AST ALT Alkaline Phosphatase Lactate Dehydrogenase C-Reactive Protein Serum Total Protein Total Protein Albumin Juxuy-0-Rqdccvuws Abnorm Protein Band 1 PEP Interpretation Crossmatch 10/14/16 10/14/16 10/14/16 05:27 06:29 07:34 WBC RBC Hgb Hct MCV MCHC RDW Plt Count Seg Neuts % (Manual) Lymphocytes % (Manual) Nucleated RBC % Seg Neutrophils # Man Lymphocytes # (Manual) Haptoglobin PT INR Fibrinogen Lupus Anticoagulant LA PTT Baseline POC ABG pH POC ABG pCO2 POC ABG pO2 Sodium Potassium Chloride Carbon Dioxide BUN Creatinine Glucose POC Glucose < 40 L 63 L < 40 L Lactic Acid Uric Acid Calcium Phosphorus Iron TIBC Erythropoietin Ferritin Total Bilirubin Direct Bilirubin AST ALT Alkaline Phosphatase Lactate Dehydrogenase C-Reactive Protein Serum Total Protein Total Protein Albumin Byqau-4-Dkhibnxqx Abnorm Protein Band 1 PEP Interpretation Crossmatch 10/14/16 10/14/16 10/14/16 09:58 09:58 09:58 WBC RBC Hgb Hct MCV MCHC RDW Plt Count Seg Neuts % (Manual) Lymphocytes % (Manual) Nucleated RBC % Seg Neutrophils # Man Lymphocytes # (Manual) Haptoglobin 218 H PT INR Fibrinogen 557 H Lupus Anticoagulant LA PTT Baseline POC ABG pH POC ABG pCO2 POC ABG pO2 Sodium Potassium Chloride Carbon Dioxide BUN Creatinine Glucose POC Glucose Lactic Acid Uric Acid Calcium Phosphorus Iron TIBC Erythropoietin Ferritin Total Bilirubin 1.30 H Direct Bilirubin 1.1 H AST ALT Alkaline Phosphatase Lactate Dehydrogenase C-Reactive Protein Serum Total Protein Total Protein Albumin Jfdvo-5-Ibrkuvthu Abnorm Protein Band 1 PEP Interpretation Crossmatch 10/14/16 10/14/16 10/14/16 10:57 11:15 12:52 WBC RBC Hgb Hct MCV MCHC RDW Plt Count Seg Neuts % (Manual) Lymphocytes % (Manual) Nucleated RBC % Seg Neutrophils # Man Lymphocytes # (Manual) Haptoglobin PT INR Fibrinogen Lupus Anticoagulant LA PTT Baseline POC ABG pH POC ABG pCO2 POC ABG pO2 Sodium Potassium Chloride Carbon Dioxide BUN Creatinine Glucose POC Glucose < 40 L < 40 L Lactic Acid 9.60 H* Uric Acid Calcium Phosphorus Iron TIBC Erythropoietin Ferritin Total Bilirubin Direct Bilirubin AST ALT Alkaline Phosphatase Lactate Dehydrogenase C-Reactive Protein Serum Total Protein Total Protein Albumin Ykwrs-7-Prigajssd Abnorm Protein Band 1 PEP Interpretation Crossmatch 10/14/16 10/14/16 10/14/16 12:52 13:17 14:12 WBC RBC Hgb Hct MCV MCHC RDW Plt Count Seg Neuts % (Manual) Lymphocytes % (Manual) Nucleated RBC % Seg Neutrophils # Man Lymphocytes # (Manual) Haptoglobin PT INR Fibrinogen Lupus Anticoagulant LA PTT Baseline POC ABG pH POC ABG pCO2 POC ABG pO2 Sodium Potassium Chloride Carbon Dioxide BUN Creatinine Glucose POC Glucose < 40 L < 40 L Lactic Acid Uric Acid Calcium Phosphorus Iron TIBC Erythropoietin Ferritin Total Bilirubin Direct Bilirubin AST ALT Alkaline Phosphatase Lactate Dehydrogenase C-Reactive Protein 40.40 H Serum Total Protein Total Protein Albumin Wvsls-0-Isweufwfh Abnorm Protein Band 1 PEP Interpretation Crossmatch 10/14/16 10/14/16 10/14/16 15:02 15:33 15:33 WBC RBC Hgb Hct MCV MCHC RDW Plt Count Seg Neuts % (Manual) Lymphocytes % (Manual) Nucleated RBC % Seg Neutrophils # Man Lymphocytes # (Manual) Haptoglobin PT INR Fibrinogen Lupus Anticoagulant LA PTT Baseline POC ABG pH POC ABG pCO2 POC ABG pO2 Sodium Potassium Chloride Carbon Dioxide BUN Creatinine Glucose 19 L* POC Glucose < 40 L Lactic Acid 11.60 H* Uric Acid Calcium Phosphorus Iron TIBC Erythropoietin Ferritin Total Bilirubin Direct Bilirubin AST ALT Alkaline Phosphatase Lactate Dehydrogenase C-Reactive Protein Serum Total Protein Total Protein Albumin Muisi-8-Kpjeymnys Abnorm Protein Band 1 PEP Interpretation Crossmatch 10/14/16 10/14/16 10/14/16 17:14 18:03 21:25 WBC RBC Hgb Hct MCV MCHC RDW Plt Count Seg Neuts % (Manual) Lymphocytes % (Manual) Nucleated RBC % Seg Neutrophils # Man Lymphocytes # (Manual) Haptoglobin PT 28.9 H INR 2.71 H Fibrinogen Lupus Anticoagulant LA PTT Baseline POC ABG pH POC ABG pCO2 POC ABG pO2 Sodium Potassium Chloride Carbon Dioxide BUN Creatinine Glucose POC Glucose < 40 L 57 L Lactic Acid Uric Acid Calcium Phosphorus Iron TIBC Erythropoietin Ferritin Total Bilirubin Direct Bilirubin AST ALT Alkaline Phosphatase Lactate Dehydrogenase C-Reactive Protein Serum Total Protein Total Protein Albumin Knait-1-Qbpzoqgoa Abnorm Protein Band 1 PEP Interpretation Crossmatch 10/15/16 10/15/16 10/15/16 05:32 05:35 05:35 WBC RBC 2.62 L Hgb 8.1 L Hct 25.8 L MCV 98 H D MCHC 31 L RDW 21.2 H Plt Count 61 L Seg Neuts % (Manual) 27.0 L Lymphocytes % (Manual) 10.0 L Nucleated RBC % 2.0 H Seg Neutrophils # Man Lymphocytes # (Manual) 0.8 L Haptoglobin PT INR Fibrinogen Lupus Anticoagulant LA PTT Baseline POC ABG pH POC ABG pCO2 POC ABG pO2 Sodium Potassium Chloride Carbon Dioxide BUN Creatinine Glucose POC Glucose < 40 L Lactic Acid Uric Acid Calcium Phosphorus Iron TIBC Erythropoietin Ferritin Total Bilirubin Direct Bilirubin AST ALT Alkaline Phosphatase Lactate Dehydrogenase 3871 H C-Reactive Protein Serum Total Protein Total Protein Albumin Cdlzx-6-Rqawrjsnt Abnorm Protein Band 1 PEP Interpretation Crossmatch 10/15/16 10/15/16 10/15/16 05:35 05:35 05:35 WBC RBC Hgb Hct MCV MCHC RDW Plt Count Seg Neuts % (Manual) Lymphocytes % (Manual) Nucleated RBC % Seg Neutrophils # Man Lymphocytes # (Manual) Haptoglobin PT INR Fibrinogen Lupus Anticoagulant LA PTT Baseline POC ABG pH POC ABG pCO2 POC ABG pO2 Sodium 136 L Potassium 5.3 H D Chloride 91.4 L Carbon Dioxide 6 L* D BUN 57 H Creatinine 7.1 H Glucose 11 L* POC Glucose Lactic Acid 13.60 H* Uric Acid Calcium 7.7 L Phosphorus 10.10 H D Iron TIBC 166 L Erythropoietin Ferritin 9562.0 H Total Bilirubin Direct Bilirubin AST ALT Alkaline Phosphatase Lactate Dehydrogenase C-Reactive Protein Serum Total Protein Total Protein Albumin Ncpxj-7-Hezlvsihb Abnorm Protein Band 1 PEP Interpretation Crossmatch 10/15/16 10/15/16 10/15/16 05:51 06:22 06:52 WBC RBC Hgb Hct MCV MCHC RDW Plt Count Seg Neuts % (Manual) Lymphocytes % (Manual) Nucleated RBC % Seg Neutrophils # Man Lymphocytes # (Manual) Haptoglobin PT INR Fibrinogen Lupus Anticoagulant LA PTT Baseline POC ABG pH 7.189 L POC ABG pCO2 28.9 L POC ABG pO2 Sodium Potassium Chloride Carbon Dioxide BUN Creatinine Glucose POC Glucose 59 L 111 H Lactic Acid Uric Acid Calcium Phosphorus Iron TIBC Erythropoietin Ferritin Total Bilirubin Direct Bilirubin AST ALT Alkaline Phosphatase Lactate Dehydrogenase C-Reactive Protein Serum Total Protein Total Protein Albumin Jhoye-1-Prgpalrqa Abnorm Protein Band 1 PEP Interpretation Crossmatch 10/15/16 10/15/16 10/15/16 08:00 09:57 11:42 WBC RBC Hgb Hct MCV MCHC RDW Plt Count Seg Neuts % (Manual) Lymphocytes % (Manual) Nucleated RBC % Seg Neutrophils # Man Lymphocytes # (Manual) Haptoglobin PT INR Fibrinogen Lupus Anticoagulant LA PTT Baseline POC ABG pH POC ABG pCO2 POC ABG pO2 Sodium Potassium Chloride Carbon Dioxide BUN Creatinine Glucose POC Glucose 63 L 143 H 203 H Lactic Acid Uric Acid Calcium Phosphorus Iron TIBC Erythropoietin Ferritin Total Bilirubin Direct Bilirubin AST ALT Alkaline Phosphatase Lactate Dehydrogenase C-Reactive Protein Serum Total Protein Total Protein Albumin Fhyij-6-Aszxwxfax Abnorm Protein Band 1 PEP Interpretation Crossmatch 10/15/16 10/15/16 10/15/16 12:00 12:00 13:00 WBC RBC Hgb Hct MCV MCHC RDW Plt Count Seg Neuts % (Manual) Lymphocytes % (Manual) Nucleated RBC % Seg Neutrophils # Man Lymphocytes # (Manual) Haptoglobin <15 L PT INR Fibrinogen Lupus Anticoagulant LA PTT Baseline POC ABG pH POC ABG pCO2 POC ABG pO2 Sodium Potassium Chloride Carbon Dioxide BUN Creatinine Glucose POC Glucose 136 H Lactic Acid 16.30 H* Uric Acid Calcium Phosphorus Iron TIBC Erythropoietin Ferritin Total Bilirubin Direct Bilirubin AST ALT Alkaline Phosphatase Lactate Dehydrogenase C-Reactive Protein Serum Total Protein Total Protein Albumin Rykmw-6-Ysfhjewsb Abnorm Protein Band 1 PEP Interpretation Crossmatch 10/15/16 10/15/16 10/15/16 14:06 15:15 16:23 WBC RBC Hgb Hct MCV MCHC RDW Plt Count Seg Neuts % (Manual) Lymphocytes % (Manual) Nucleated RBC % Seg Neutrophils # Man Lymphocytes # (Manual) Haptoglobin PT INR Fibrinogen Lupus Anticoagulant LA PTT Baseline POC ABG pH POC ABG pCO2 POC ABG pO2 Sodium Potassium Chloride Carbon Dioxide BUN Creatinine Glucose POC Glucose 132 H 64 L Lactic Acid 20.40 H* Uric Acid Calcium Phosphorus Iron TIBC Erythropoietin Ferritin Total Bilirubin Direct Bilirubin AST ALT Alkaline Phosphatase Lactate Dehydrogenase C-Reactive Protein Serum Total Protein Total Protein Albumin Nbsdv-3-Nabztmbpn Abnorm Protein Band 1 PEP Interpretation Crossmatch 10/15/16 10/15/16 10/15/16 16:40 17:00 17:10 WBC RBC Hgb Hct MCV MCHC RDW Plt Count Seg Neuts % (Manual) Lymphocytes % (Manual) Nucleated RBC % Seg Neutrophils # Man Lymphocytes # (Manual) Haptoglobin PT INR Fibrinogen Lupus Anticoagulant LA PTT Baseline POC ABG pH 7.323 L POC ABG pCO2 25.8 L POC ABG pO2 135 H Sodium Potassium Chloride Carbon Dioxide BUN Creatinine Glucose POC Glucose 159 H Lactic Acid 20.20 H* Uric Acid Calcium Phosphorus Iron TIBC Erythropoietin Ferritin Total Bilirubin Direct Bilirubin AST ALT Alkaline Phosphatase Lactate Dehydrogenase C-Reactive Protein Serum Total Protein Total Protein Albumin Wqiwo-3-Jsygcujjm Abnorm Protein Band 1 PEP Interpretation Crossmatch 10/15/16 10/15/16 10/15/16 17:46 17:53 18:45 WBC RBC Hgb Hct MCV MCHC RDW Plt Count Seg Neuts % (Manual) Lymphocytes % (Manual) Nucleated RBC % Seg Neutrophils # Man Lymphocytes # (Manual) Haptoglobin PT INR Fibrinogen Lupus Anticoagulant LA PTT Baseline POC ABG pH POC ABG pCO2 POC ABG pO2 Sodium Potassium Chloride Carbon Dioxide BUN Creatinine Glucose POC Glucose 126 H 143 H Lactic Acid 21.40 H* Uric Acid Calcium Phosphorus Iron TIBC Erythropoietin Ferritin Total Bilirubin Direct Bilirubin AST ALT Alkaline Phosphatase Lactate Dehydrogenase C-Reactive Protein Serum Total Protein Total Protein Albumin Wdzne-7-Gbdnbasdl Abnorm Protein Band 1 PEP Interpretation Crossmatch 10/15/16 10/15/16 10/16/16 20:03 22:59 00:06 WBC RBC Hgb Hct MCV MCHC RDW Plt Count Seg Neuts % (Manual) Lymphocytes % (Manual) Nucleated RBC % Seg Neutrophils # Man Lymphocytes # (Manual) Haptoglobin PT INR Fibrinogen Lupus Anticoagulant LA PTT Baseline POC ABG pH POC ABG pCO2 POC ABG pO2 Sodium Potassium Chloride Carbon Dioxide BUN Creatinine Glucose POC Glucose 66 L 53 L 126 H Lactic Acid Uric Acid Calcium Phosphorus Iron TIBC Erythropoietin Ferritin Total Bilirubin Direct Bilirubin AST ALT Alkaline Phosphatase Lactate Dehydrogenase C-Reactive Protein Serum Total Protein Total Protein Albumin Jybki-8-Catiwojks Abnorm Protein Band 1 PEP Interpretation Crossmatch 10/16/16 10/16/16 10/16/16 01:03 03:55 04:00 WBC RBC Hgb Hct MCV MCHC RDW Plt Count Seg Neuts % (Manual) Lymphocytes % (Manual) Nucleated RBC % Seg Neutrophils # Man Lymphocytes # (Manual) Haptoglobin PT INR Fibrinogen Lupus Anticoagulant LA PTT Baseline POC ABG pH POC ABG pCO2 POC ABG pO2 Sodium Potassium Chloride Carbon Dioxide BUN Creatinine Glucose POC Glucose 107 H 260 H Lactic Acid 18.00 H* Uric Acid Calcium Phosphorus Iron TIBC Erythropoietin Ferritin Total Bilirubin Direct Bilirubin AST ALT Alkaline Phosphatase Lactate Dehydrogenase C-Reactive Protein Serum Total Protein Total Protein Albumin Iuhyt-8-Bmvmwrhci Abnorm Protein Band 1 PEP Interpretation Crossmatch 10/16/16 10/16/16 10/16/16 04:03 07:58 08:34 WBC RBC Hgb Hct MCV MCHC RDW Plt Count Seg Neuts % (Manual) Lymphocytes % (Manual) Nucleated RBC % Seg Neutrophils # Man Lymphocytes # (Manual) Haptoglobin PT INR Fibrinogen Lupus Anticoagulant LA PTT Baseline POC ABG pH 7.527 H POC ABG pCO2 32.9 L POC ABG pO2 119 H Sodium Potassium Chloride Carbon Dioxide BUN Creatinine Glucose POC Glucose 120 H 66 L Lactic Acid Uric Acid Calcium Phosphorus Iron TIBC Erythropoietin Ferritin Total Bilirubin Direct Bilirubin AST ALT Alkaline Phosphatase Lactate Dehydrogenase C-Reactive Protein Serum Total Protein Total Protein Albumin Nlmdq-7-Ufngbqzsf Abnorm Protein Band 1 PEP Interpretation Crossmatch 10/16/16 10/16/16 10/16/16 09:13 10:06 10:57 WBC RBC Hgb Hct MCV MCHC RDW Plt Count Seg Neuts % (Manual) Lymphocytes % (Manual) Nucleated RBC % Seg Neutrophils # Man Lymphocytes # (Manual) Haptoglobin PT INR Fibrinogen Lupus Anticoagulant LA PTT Baseline POC ABG pH POC ABG pCO2 POC ABG pO2 Sodium Potassium Chloride Carbon Dioxide BUN Creatinine Glucose POC Glucose 147 H 137 H 140 H Lactic Acid Uric Acid Calcium Phosphorus Iron TIBC Erythropoietin Ferritin Total Bilirubin Direct Bilirubin AST ALT Alkaline Phosphatase Lactate Dehydrogenase C-Reactive Protein Serum Total Protein Total Protein Albumin Uuawh-0-Uklhrjbgk Abnorm Protein Band 1 PEP Interpretation Crossmatch 10/16/16 10/16/16 10/16/16 11:15 11:15 11:15 WBC 25.8 H RBC 2.30 L Hgb 7.0 L Hct 22.3 L MCV 97 H MCHC 31 L RDW 21.2 H Plt Count 42 L Seg Neuts % (Manual) Lymphocytes % (Manual) 3.0 L Nucleated RBC % 2.0 H Seg Neutrophils # Man 11.1 H Lymphocytes # (Manual) 0.8 L Haptoglobin PT INR Fibrinogen Lupus Anticoagulant LA PTT Baseline POC ABG pH POC ABG pCO2 POC ABG pO2 Sodium Potassium Chloride 81.7 L Carbon Dioxide 13 L D BUN 61 H Creatinine 6.2 H Glucose 171 H POC Glucose Lactic Acid 22.70 H* Uric Acid Calcium 7.1 L Phosphorus 9.10 H Iron TIBC Erythropoietin Ferritin Total Bilirubin Direct Bilirubin AST ALT Alkaline Phosphatase Lactate Dehydrogenase C-Reactive Protein Serum Total Protein Total Protein Albumin Kstrz-5-Oscxkkzvw Abnorm Protein Band 1 PEP Interpretation Crossmatch 10/16/16 10/16/16 10/16/16 15:10 15:50 18:11 WBC RBC Hgb Hct MCV MCHC RDW Plt Count Seg Neuts % (Manual) Lymphocytes % (Manual) Nucleated RBC % Seg Neutrophils # Man Lymphocytes # (Manual) Haptoglobin PT INR Fibrinogen Lupus Anticoagulant LA PTT Baseline POC ABG pH POC ABG pCO2 POC ABG pO2 Sodium Potassium Chloride Carbon Dioxide BUN Creatinine Glucose POC Glucose 47 L 164 H 58 L Lactic Acid Uric Acid Calcium Phosphorus Iron TIBC Erythropoietin Ferritin Total Bilirubin Direct Bilirubin AST ALT Alkaline Phosphatase Lactate Dehydrogenase C-Reactive Protein Serum Total Protein Total Protein Albumin Zwuyq-0-Udwvmrtzr Abnorm Protein Band 1 PEP Interpretation Crossmatch 10/16/16 10/16/16 10/17/16 18:26 21:06 00:06 WBC RBC Hgb Hct MCV MCHC RDW Plt Count Seg Neuts % (Manual) Lymphocytes % (Manual) Nucleated RBC % Seg Neutrophils # Man Lymphocytes # (Manual) Haptoglobin PT INR Fibrinogen Lupus Anticoagulant LA PTT Baseline POC ABG pH POC ABG pCO2 POC ABG pO2 489 H Sodium Potassium Chloride Carbon Dioxide BUN Creatinine Glucose POC Glucose 52 L 120 H Lactic Acid Uric Acid Calcium Phosphorus Iron TIBC Erythropoietin Ferritin Total Bilirubin Direct Bilirubin AST ALT Alkaline Phosphatase Lactate Dehydrogenase C-Reactive Protein Serum Total Protein Total Protein Albumin Afhyd-0-Eglebiaiy Abnorm Protein Band 1 PEP Interpretation Crossmatch 10/17/16 10/17/16 10/17/16 04:55 04:55 05:04 WBC 25.5 H RBC 2.23 L Hgb 6.6 L Hct 21.2 L MCV 95 H MCHC 31 L RDW 20.5 H Plt Count 35 L Seg Neuts % (Manual) 79.0 H Lymphocytes % (Manual) 0 L Nucleated RBC % Seg Neutrophils # Man 20.1 H Lymphocytes # (Manual) 0.0 L Haptoglobin PT INR Fibrinogen Lupus Anticoagulant LA PTT Baseline POC ABG pH POC ABG pCO2 27.2 L POC ABG pO2 162 H Sodium Potassium Chloride 91.5 L Carbon Dioxide 16 L BUN 45 H Creatinine 4.5 H Glucose 103 H POC Glucose Lactic Acid Uric Acid Calcium 6.9 L Phosphorus 5.80 H D Iron TIBC Erythropoietin Ferritin Total Bilirubin Direct Bilirubin AST ALT Alkaline Phosphatase Lactate Dehydrogenase C-Reactive Protein Serum Total Protein Total Protein Albumin Lkirq-0-Sxhgccbbo Abnorm Protein Band 1 PEP Interpretation Crossmatch 10/17/16 10/17/16 10/17/16 07:59 09:04 10:04 WBC RBC Hgb Hct MCV MCHC RDW Plt Count Seg Neuts % (Manual) Lymphocytes % (Manual) Nucleated RBC % Seg Neutrophils # Man Lymphocytes # (Manual) Haptoglobin PT INR Fibrinogen Lupus Anticoagulant LA PTT Baseline POC ABG pH POC ABG pCO2 POC ABG pO2 Sodium Potassium Chloride Carbon Dioxide BUN Creatinine Glucose POC Glucose 65 L 118 H Lactic Acid Uric Acid Calcium Phosphorus Iron TIBC Erythropoietin Ferritin Total Bilirubin Direct Bilirubin AST ALT Alkaline Phosphatase Lactate Dehydrogenase C-Reactive Protein Serum Total Protein Total Protein Albumin Vautk-4-Eglhkktkk Abnorm Protein Band 1 PEP Interpretation Crossmatch See Detail 10/17/16 10/17/16 10/17/16 11:52 13:08 15:42 WBC RBC Hgb Hct MCV MCHC RDW Plt Count Seg Neuts % (Manual) Lymphocytes % (Manual) Nucleated RBC % Seg Neutrophils # Man Lymphocytes # (Manual) Haptoglobin PT INR Fibrinogen Lupus Anticoagulant LA PTT Baseline POC ABG pH POC ABG pCO2 POC ABG pO2 Sodium Potassium Chloride Carbon Dioxide BUN Creatinine Glucose POC Glucose 125 H 106 H 55 L Lactic Acid Uric Acid Calcium Phosphorus Iron TIBC Erythropoietin Ferritin Total Bilirubin Direct Bilirubin AST ALT Alkaline Phosphatase Lactate Dehydrogenase C-Reactive Protein Serum Total Protein Total Protein Albumin Spyfa-1-Wekccesge Abnorm Protein Band 1 PEP Interpretation Crossmatch 10/17/16 10/17/16 10/17/16 17:39 20:37 21:02 WBC RBC Hgb Hct MCV MCHC RDW Plt Count Seg Neuts % (Manual) Lymphocytes % (Manual) Nucleated RBC % Seg Neutrophils # Man Lymphocytes # (Manual) Haptoglobin PT INR Fibrinogen Lupus Anticoagulant LA PTT Baseline POC ABG pH POC ABG pCO2 28.2 L POC ABG pO2 Sodium Potassium Chloride Carbon Dioxide BUN Creatinine Glucose POC Glucose < 40 L 106 H Lactic Acid Uric Acid Calcium Phosphorus Iron TIBC Erythropoietin Ferritin Total Bilirubin Direct Bilirubin AST ALT Alkaline Phosphatase Lactate Dehydrogenase C-Reactive Protein Serum Total Protein Total Protein Albumin Spgvb-3-Gktghsmgb Abnorm Protein Band 1 PEP Interpretation Crossmatch 10/17/16 10/17/16 10/18/16 22:18 23:14 00:28 WBC RBC Hgb Hct MCV MCHC RDW Plt Count Seg Neuts % (Manual) Lymphocytes % (Manual) Nucleated RBC % Seg Neutrophils # Man Lymphocytes # (Manual) Haptoglobin PT INR Fibrinogen Lupus Anticoagulant LA PTT Baseline POC ABG pH POC ABG pCO2 POC ABG pO2 Sodium Potassium Chloride Carbon Dioxide BUN Creatinine Glucose POC Glucose 111 H 118 H 112 H Lactic Acid Uric Acid Calcium Phosphorus Iron TIBC Erythropoietin Ferritin Total Bilirubin Direct Bilirubin AST ALT Alkaline Phosphatase Lactate Dehydrogenase C-Reactive Protein Serum Total Protein Total Protein Albumin Yjlmq-3-Hoesabzjb Abnorm Protein Band 1 PEP Interpretation Crossmatch 10/18/16 10/18/16 10/18/16 05:00 05:00 05:15 WBC 27.3 H RBC 2.75 L Hgb 7.9 L Hct 25.3 L MCV MCHC 31 L RDW 20.7 H Plt Count 31 L Seg Neuts % (Manual) 87.0 H Lymphocytes % (Manual) 1.0 L Nucleated RBC % 1.0 H Seg Neutrophils # Man 23.8 H Lymphocytes # (Manual) 0.3 L Haptoglobin PT INR Fibrinogen Lupus Anticoagulant LA PTT Baseline POC ABG pH 7.466 H POC ABG pCO2 25.1 L POC ABG pO2 Sodium Potassium Chloride 88.7 L Carbon Dioxide 18 L BUN 66 H Creatinine 4.7 H Glucose POC Glucose Lactic Acid Uric Acid Calcium 6.1 L Phosphorus 7.30 H D Iron TIBC Erythropoietin Ferritin Total Bilirubin Direct Bilirubin AST ALT Alkaline Phosphatase Lactate Dehydrogenase C-Reactive Protein Serum Total Protein Total Protein Albumin Rsiww-1-Vdspkrrfr Abnorm Protein Band 1 PEP Interpretation Crossmatch 10/18/16 10/18/16 10/18/16 07:15 07:44 09:07 WBC RBC Hgb Hct MCV MCHC RDW Plt Count Seg Neuts % (Manual) Lymphocytes % (Manual) Nucleated RBC % Seg Neutrophils # Man Lymphocytes # (Manual) Haptoglobin PT INR Fibrinogen Lupus Anticoagulant LA PTT Baseline POC ABG pH POC ABG pCO2 POC ABG pO2 Sodium Potassium Chloride Carbon Dioxide BUN Creatinine Glucose POC Glucose 64 L 156 H 117 H Lactic Acid Uric Acid Calcium Phosphorus Iron TIBC Erythropoietin Ferritin Total Bilirubin Direct Bilirubin AST ALT Alkaline Phosphatase Lactate Dehydrogenase C-Reactive Protein Serum Total Protein Total Protein Albumin Qetff-6-Cfjxkmbci Abnorm Protein Band 1 PEP Interpretation Crossmatch 10/18/16 10/18/16 10/18/16 09:15 14:00 18:21 WBC RBC Hgb Hct MCV MCHC RDW Plt Count Seg Neuts % (Manual) Lymphocytes % (Manual) Nucleated RBC % Seg Neutrophils # Man Lymphocytes # (Manual) Haptoglobin PT INR Fibrinogen Lupus Anticoagulant LA PTT Baseline POC ABG pH POC ABG pCO2 POC ABG pO2 Sodium Potassium Chloride Carbon Dioxide BUN Creatinine Glucose POC Glucose 106 H 112 H Lactic Acid 14.30 H* Uric Acid Calcium Phosphorus Iron TIBC Erythropoietin Ferritin Total Bilirubin Direct Bilirubin AST ALT Alkaline Phosphatase Lactate Dehydrogenase C-Reactive Protein Serum Total Protein Total Protein Albumin Hkzfx-1-Uvahyfjzd Abnorm Protein Band 1 PEP Interpretation Crossmatch 10/18/16 10/18/16 10/18/16 19:58 20:55 22:11 WBC RBC Hgb Hct MCV MCHC RDW Plt Count Seg Neuts % (Manual) Lymphocytes % (Manual) Nucleated RBC % Seg Neutrophils # Man Lymphocytes # (Manual) Haptoglobin PT INR Fibrinogen Lupus Anticoagulant LA PTT Baseline POC ABG pH POC ABG pCO2 POC ABG pO2 Sodium Potassium Chloride Carbon Dioxide BUN Creatinine Glucose POC Glucose 127 H 125 H 159 H Lactic Acid Uric Acid Calcium Phosphorus Iron TIBC Erythropoietin Ferritin Total Bilirubin Direct Bilirubin AST ALT Alkaline Phosphatase Lactate Dehydrogenase C-Reactive Protein Serum Total Protein Total Protein Albumin Sfyak-6-Cnbexyvqb Abnorm Protein Band 1 PEP Interpretation Crossmatch 10/18/16 10/18/16 10/19/16 23:11 23:57 01:06 WBC RBC Hgb Hct MCV MCHC RDW Plt Count Seg Neuts % (Manual) Lymphocytes % (Manual) Nucleated RBC % Seg Neutrophils # Man Lymphocytes # (Manual) Haptoglobin PT INR Fibrinogen Lupus Anticoagulant LA PTT Baseline POC ABG pH POC ABG pCO2 POC ABG pO2 Sodium Potassium Chloride Carbon Dioxide BUN Creatinine Glucose POC Glucose 122 H 137 H 162 H Lactic Acid Uric Acid Calcium Phosphorus Iron TIBC Erythropoietin Ferritin Total Bilirubin Direct Bilirubin AST ALT Alkaline Phosphatase Lactate Dehydrogenase C-Reactive Protein Serum Total Protein Total Protein Albumin Wzkkf-6-Nsuizrfrx Abnorm Protein Band 1 PEP Interpretation Crossmatch 10/19/16 10/19/16 10/19/16 01:59 03:07 04:10 WBC RBC Hgb Hct MCV MCHC RDW Plt Count Seg Neuts % (Manual) Lymphocytes % (Manual) Nucleated RBC % Seg Neutrophils # Man Lymphocytes # (Manual) Haptoglobin PT INR Fibrinogen Lupus Anticoagulant LA PTT Baseline POC ABG pH POC ABG pCO2 POC ABG pO2 Sodium Potassium Chloride Carbon Dioxide BUN Creatinine Glucose POC Glucose 154 H 178 H 186 H Lactic Acid Uric Acid Calcium Phosphorus Iron TIBC Erythropoietin Ferritin Total Bilirubin Direct Bilirubin AST ALT Alkaline Phosphatase Lactate Dehydrogenase C-Reactive Protein Serum Total Protein Total Protein Albumin Mymlm-6-Pejvpnmpc Abnorm Protein Band 1 PEP Interpretation Crossmatch 10/19/16 10/19/16 10/19/16 05:14 05:15 05:47 WBC RBC Hgb Hct MCV MCHC RDW Plt Count Seg Neuts % (Manual) Lymphocytes % (Manual) Nucleated RBC % Seg Neutrophils # Man Lymphocytes # (Manual) Haptoglobin PT INR Fibrinogen Lupus Anticoagulant LA PTT Baseline POC ABG pH 7.581 H POC ABG pCO2 22.9 L POC ABG pO2 58 L Sodium Potassium Chloride Carbon Dioxide BUN Creatinine Glucose POC Glucose 197 H 204 H Lactic Acid Uric Acid Calcium Phosphorus Iron TIBC Erythropoietin Ferritin Total Bilirubin Direct Bilirubin AST ALT Alkaline Phosphatase Lactate Dehydrogenase C-Reactive Protein Serum Total Protein Total Protein Albumin Htfaj-1-Ksefduktv Abnorm Protein Band 1 PEP Interpretation Crossmatch 10/19/16 10/19/16 10/19/16 06:00 06:00 07:51 WBC 23.0 H RBC 2.54 L Hgb 7.5 L Hct 23.0 L MCV MCHC RDW 20.7 H Plt Count 25 L Seg Neuts % (Manual) 91.0 H Lymphocytes % (Manual) 2.0 L Nucleated RBC % 1.0 H Seg Neutrophils # Man 20.9 H Lymphocytes # (Manual) 0.5 L Haptoglobin PT INR Fibrinogen Lupus Anticoagulant LA PTT Baseline POC ABG pH POC ABG pCO2 POC ABG pO2 Sodium Potassium Chloride 88.7 L Carbon Dioxide 21 L BUN 70 H Creatinine 3.9 H Glucose 189 H POC Glucose 145 H Lactic Acid Uric Acid Calcium 5.6 L* Phosphorus 6.30 H Iron TIBC Erythropoietin Ferritin Total Bilirubin Direct Bilirubin AST ALT Alkaline Phosphatase Lactate Dehydrogenase C-Reactive Protein Serum Total Protein Total Protein Albumin Bepnt-2-Cjxsjeama Abnorm Protein Band 1 PEP Interpretation Crossmatch 10/19/16 10/19/16 10/19/16 09:14 10:01 12:14 WBC RBC Hgb Hct MCV MCHC RDW Plt Count Seg Neuts % (Manual) Lymphocytes % (Manual) Nucleated RBC % Seg Neutrophils # Man Lymphocytes # (Manual) Haptoglobin PT INR Fibrinogen Lupus Anticoagulant LA PTT Baseline POC ABG pH POC ABG pCO2 POC ABG pO2 Sodium Potassium Chloride Carbon Dioxide BUN Creatinine Glucose POC Glucose 173 H 153 H 180 H Lactic Acid Uric Acid Calcium Phosphorus Iron TIBC Erythropoietin Ferritin Total Bilirubin Direct Bilirubin AST ALT Alkaline Phosphatase Lactate Dehydrogenase C-Reactive Protein Serum Total Protein Total Protein Albumin Ienkq-2-Sowrmvqqs Abnorm Protein Band 1 PEP Interpretation Crossmatch 10/19/16 10/19/16 10/19/16 14:15 16:38 20:27 WBC RBC Hgb Hct MCV MCHC RDW Plt Count Seg Neuts % (Manual) Lymphocytes % (Manual) Nucleated RBC % Seg Neutrophils # Man Lymphocytes # (Manual) Haptoglobin PT INR Fibrinogen Lupus Anticoagulant LA PTT Baseline POC ABG pH POC ABG pCO2 POC ABG pO2 Sodium Potassium Chloride Carbon Dioxide BUN Creatinine Glucose POC Glucose 194 H 202 H Lactic Acid Uric Acid Calcium Phosphorus Iron TIBC Erythropoietin 148.2 H Ferritin Total Bilirubin Direct Bilirubin AST ALT Alkaline Phosphatase Lactate Dehydrogenase C-Reactive Protein Serum Total Protein Total Protein Albumin Txvex-2-Hhutpylgk Abnorm Protein Band 1 PEP Interpretation Crossmatch 10/19/16 10/20/16 10/20/16 23:27 04:06 05:00 WBC RBC Hgb Hct MCV MCHC RDW Plt Count Seg Neuts % (Manual) Lymphocytes % (Manual) Nucleated RBC % Seg Neutrophils # Man Lymphocytes # (Manual) Haptoglobin PT INR Fibrinogen Lupus Anticoagulant LA PTT Baseline POC ABG pH POC ABG pCO2 POC ABG pO2 Sodium Potassium Chloride 88.8 L Carbon Dioxide BUN 93 H Creatinine 4.3 H Glucose 204 H POC Glucose 201 H 200 H Lactic Acid Uric Acid Calcium 5.2 L* Phosphorus Iron TIBC Erythropoietin Ferritin Total Bilirubin Direct Bilirubin AST ALT Alkaline Phosphatase Lactate Dehydrogenase C-Reactive Protein Serum Total Protein Total Protein Albumin Htuth-8-Dszwlofwl Abnorm Protein Band 1 PEP Interpretation Crossmatch 10/20/16 10/20/16 10/20/16 05:16 06:00 07:43 WBC 24.8 H RBC 2.52 L Hgb 7.4 L Hct 22.9 L MCV MCHC RDW 19.9 H Plt Count 23 L Seg Neuts % (Manual) 97.0 H Lymphocytes % (Manual) 1.0 L Nucleated RBC % 9.0 H Seg Neutrophils # Man 24.1 H Lymphocytes # (Manual) 0.2 L Haptoglobin PT INR Fibrinogen Lupus Anticoagulant LA PTT Baseline POC ABG pH 7.463 H POC ABG pCO2 POC ABG pO2 157 H Sodium Potassium Chloride Carbon Dioxide BUN Creatinine Glucose POC Glucose 192 H Lactic Acid Uric Acid Calcium Phosphorus Iron TIBC Erythropoietin Ferritin Total Bilirubin Direct Bilirubin AST ALT Alkaline Phosphatase Lactate Dehydrogenase C-Reactive Protein Serum Total Protein Total Protein Albumin Owqmx-6-Dgckuleay Abnorm Protein Band 1 PEP Interpretation Crossmatch 10/20/16 10/20/16 10/20/16 12:11 15:32 21:23 WBC RBC Hgb Hct MCV MCHC RDW Plt Count Seg Neuts % (Manual) Lymphocytes % (Manual) Nucleated RBC % Seg Neutrophils # Man Lymphocytes # (Manual) Haptoglobin PT INR Fibrinogen Lupus Anticoagulant LA PTT Baseline POC ABG pH POC ABG pCO2 POC ABG pO2 Sodium Potassium Chloride Carbon Dioxide BUN Creatinine Glucose POC Glucose 172 H 216 H 271 H Lactic Acid Uric Acid Calcium Phosphorus Iron TIBC Erythropoietin Ferritin Total Bilirubin Direct Bilirubin AST ALT Alkaline Phosphatase Lactate Dehydrogenase C-Reactive Protein Serum Total Protein Total Protein Albumin Wjvdp-9-Iafhlkeqa Abnorm Protein Band 1 PEP Interpretation Crossmatch 10/20/16 10/21/16 10/21/16 23:49 03:53 04:58 WBC RBC Hgb Hct MCV MCHC RDW Plt Count Seg Neuts % (Manual) Lymphocytes % (Manual) Nucleated RBC % Seg Neutrophils # Man Lymphocytes # (Manual) Haptoglobin PT INR Fibrinogen Lupus Anticoagulant LA PTT Baseline POC ABG pH 7.459 H POC ABG pCO2 POC ABG pO2 113 H Sodium 136 L Potassium 2.8 L* D Chloride 91.6 L Carbon Dioxide BUN 62 H Creatinine 2.8 H Glucose 236 H POC Glucose 317 H Lactic Acid Uric Acid Calcium 6.2 L D Phosphorus Iron TIBC Erythropoietin Ferritin Total Bilirubin 2.70 H Direct Bilirubin AST 73 H ALT 57 H Alkaline Phosphatase 158 H Lactate Dehydrogenase C-Reactive Protein Serum Total Protein Total Protein 4.9 L Albumin 2.6 L Axokz-6-Iqrbiksxx Abnorm Protein Band 1 PEP Interpretation Crossmatch 10/21/16 10/21/16 10/21/16 05:25 07:11 10:30 WBC 28.1 H RBC 2.36 L Hgb 7.0 L Hct 21.6 L MCV MCHC RDW 20.0 H Plt Count 14 L* Seg Neuts % (Manual) 92.0 H Lymphocytes % (Manual) 0 L Nucleated RBC % 5.0 H Seg Neutrophils # Man 25.9 H Lymphocytes # (Manual) 0.0 L Haptoglobin PT INR Fibrinogen Lupus Anticoagulant LA PTT Baseline POC ABG pH POC ABG pCO2 POC ABG pO2 Sodium Potassium Chloride Carbon Dioxide BUN Creatinine Glucose POC Glucose 237 H 206 H Lactic Acid Uric Acid Calcium Phosphorus Iron TIBC Erythropoietin Ferritin Total Bilirubin Direct Bilirubin AST ALT Alkaline Phosphatase Lactate Dehydrogenase C-Reactive Protein Serum Total Protein Total Protein Albumin Bquyu-8-Zervvminy Abnorm Protein Band 1 PEP Interpretation Crossmatch 10/21/16 10/21/16 10/21/16 11:25 12:31 16:33 WBC RBC Hgb Hct MCV MCHC RDW Plt Count Seg Neuts % (Manual) Lymphocytes % (Manual) Nucleated RBC % Seg Neutrophils # Man Lymphocytes # (Manual) Haptoglobin PT 49.1 H INR 5.28 H* Fibrinogen Lupus Anticoagulant LA PTT Baseline POC ABG pH POC ABG pCO2 POC ABG pO2 Sodium Potassium Chloride Carbon Dioxide BUN Creatinine Glucose POC Glucose 145 H 151 H Lactic Acid Uric Acid Calcium Phosphorus Iron TIBC Erythropoietin Ferritin Total Bilirubin Direct Bilirubin AST ALT Alkaline Phosphatase Lactate Dehydrogenase C-Reactive Protein Serum Total Protein Total Protein Albumin Uhqyj-3-Hlcnkbsep Abnorm Protein Band 1 PEP Interpretation Crossmatch 10/21/16 10/22/16 10/22/16 19:53 00:00 05:23 WBC RBC Hgb Hct MCV MCHC RDW Plt Count Seg Neuts % (Manual) Lymphocytes % (Manual) Nucleated RBC % Seg Neutrophils # Man Lymphocytes # (Manual) Haptoglobin PT INR Fibrinogen Lupus Anticoagulant LA PTT Baseline POC ABG pH POC ABG pCO2 POC ABG pO2 Sodium Potassium Chloride Carbon Dioxide BUN Creatinine Glucose POC Glucose 170 H 168 H 131 H Lactic Acid Uric Acid Calcium Phosphorus Iron TIBC Erythropoietin Ferritin Total Bilirubin Direct Bilirubin AST ALT Alkaline Phosphatase Lactate Dehydrogenase C-Reactive Protein Serum Total Protein Total Protein Albumin Kvdla-8-Gwgdbwvdi Abnorm Protein Band 1 PEP Interpretation Crossmatch 10/22/16 10/22/16 10/22/16 05:25 05:35 13:03 WBC RBC Hgb Hct MCV MCHC RDW Plt Count Seg Neuts % (Manual) Lymphocytes % (Manual) Nucleated RBC % Seg Neutrophils # Man Lymphocytes # (Manual) Haptoglobin PT INR Fibrinogen Lupus Anticoagulant LA PTT Baseline POC ABG pH 7.462 H POC ABG pCO2 POC ABG pO2 Sodium 135 L Potassium 3.0 L Chloride 88.5 L Carbon Dioxide BUN 84 H Creatinine 3.4 H Glucose 124 H POC Glucose 164 H Lactic Acid Uric Acid Calcium 5.9 L* Phosphorus Iron TIBC Erythropoietin Ferritin Total Bilirubin 2.00 H Direct Bilirubin AST 85 H ALT Alkaline Phosphatase 199 H Lactate Dehydrogenase C-Reactive Protein Serum Total Protein Total Protein 5.0 L Albumin 2.5 L Brdms-1-Qyzdwddtt Abnorm Protein Band 1 PEP Interpretation Crossmatch 10/22/16 10/22/16 10/23/16 17:14 23:16 04:47 WBC RBC Hgb Hct MCV MCHC RDW Plt Count Seg Neuts % (Manual) Lymphocytes % (Manual) Nucleated RBC % Seg Neutrophils # Man Lymphocytes # (Manual) Haptoglobin PT INR Fibrinogen Lupus Anticoagulant LA PTT Baseline POC ABG pH 7.476 H POC ABG pCO2 POC ABG pO2 108 H Sodium Potassium Chloride Carbon Dioxide BUN Creatinine Glucose POC Glucose 188 H 167 H Lactic Acid Uric Acid Calcium Phosphorus Iron TIBC Erythropoietin Ferritin Total Bilirubin Direct Bilirubin AST ALT Alkaline Phosphatase Lactate Dehydrogenase C-Reactive Protein Serum Total Protein Total Protein Albumin Rjrih-5-Qgnfexcaj Abnorm Protein Band 1 PEP Interpretation Crossmatch 10/23/16 10/23/16 10/23/16 05:49 07:00 07:12 WBC 24.2 H RBC 2.27 L Hgb 7.0 L Hct 21.1 L MCV MCHC RDW 19.7 H Plt Count 35 L D Seg Neuts % (Manual) Lymphocytes % (Manual) Nucleated RBC % Seg Neutrophils # Man Lymphocytes # (Manual) Haptoglobin PT INR Fibrinogen Lupus Anticoagulant LA PTT Baseline POC ABG pH POC ABG pCO2 POC ABG pO2 Sodium Potassium 3.5 L Chloride 95.7 L Carbon Dioxide BUN 55 H Creatinine 2.7 H Glucose 103 H POC Glucose 106 H Lactic Acid Uric Acid Calcium 7.1 L D Phosphorus Iron TIBC Erythropoietin Ferritin Total Bilirubin Direct Bilirubin AST ALT Alkaline Phosphatase Lactate Dehydrogenase C-Reactive Protein Serum Total Protein Total Protein Albumin Iqlrh-6-Rmiueermy Abnorm Protein Band 1 PEP Interpretation Crossmatch 10/24/16 10/24/16 10/24/16 00:12 05:16 07:00 WBC 17.9 H RBC 2.12 L Hgb 6.5 L Hct 19.9 L* MCV MCHC RDW 19.3 H Plt Count 44 L Seg Neuts % (Manual) Lymphocytes % (Manual) Nucleated RBC % Seg Neutrophils # Man Lymphocytes # (Manual) Haptoglobin PT INR Fibrinogen Lupus Anticoagulant LA PTT Baseline POC ABG pH POC ABG pCO2 POC ABG pO2 Sodium Potassium Chloride Carbon Dioxide BUN Creatinine Glucose POC Glucose 116 H 135 H Lactic Acid Uric Acid Calcium Phosphorus Iron TIBC Erythropoietin Ferritin Total Bilirubin Direct Bilirubin AST ALT Alkaline Phosphatase Lactate Dehydrogenase C-Reactive Protein Serum Total Protein Total Protein Albumin Uppsa-5-Boovjtlul Abnorm Protein Band 1 PEP Interpretation Crossmatch 10/24/16 10/24/16 10/24/16 07:00 11:45 12:12 WBC RBC Hgb Hct MCV MCHC RDW Plt Count Seg Neuts % (Manual) Lymphocytes % (Manual) Nucleated RBC % Seg Neutrophils # Man Lymphocytes # (Manual) Haptoglobin PT INR Fibrinogen Lupus Anticoagulant LA PTT Baseline POC ABG pH POC ABG pCO2 POC ABG pO2 Sodium Potassium Chloride 92.9 L Carbon Dioxide BUN 74 H Creatinine 3.3 H Glucose 136 H POC Glucose 177 H Lactic Acid Uric Acid Calcium 6.6 L Phosphorus Iron TIBC Erythropoietin Ferritin Total Bilirubin 2.10 H Direct Bilirubin AST 68 H ALT Alkaline Phosphatase 224 H Lactate Dehydrogenase C-Reactive Protein Serum Total Protein Total Protein 4.8 L Albumin 2.3 L Sqqzu-5-Jsyocqzui Abnorm Protein Band 1 PEP Interpretation Crossmatch See Detail 10/24/16 10/24/16 10/24/16 16:30 16:30 17:28 WBC RBC Hgb Hct MCV MCHC RDW Plt Count Seg Neuts % (Manual) Lymphocytes % (Manual) Nucleated RBC % Seg Neutrophils # Man Lymphocytes # (Manual) Haptoglobin PT INR Fibrinogen Lupus Anticoagulant LA PTT Baseline POC ABG pH POC ABG pCO2 POC ABG pO2 Sodium Potassium Chloride Carbon Dioxide BUN Creatinine Glucose POC Glucose 128 H Lactic Acid 3.00 H* Uric Acid Calcium Phosphorus Iron TIBC Erythropoietin Ferritin Total Bilirubin Direct Bilirubin AST ALT Alkaline Phosphatase Lactate Dehydrogenase C-Reactive Protein 7.40 H Serum Total Protein Total Protein Albumin Wwbfb-2-Saonuuopo Abnorm Protein Band 1 PEP Interpretation Crossmatch 10/24/16 10/24/16 10/25/16 18:40 23:32 05:00 WBC 17.5 H RBC 2.99 L Hgb 9.1 L Hct 26.9 L D MCV MCHC RDW 17.7 H Plt Count 53 L Seg Neuts % (Manual) Lymphocytes % (Manual) Nucleated RBC % Seg Neutrophils # Man Lymphocytes # (Manual) Haptoglobin PT INR Fibrinogen Lupus Anticoagulant LA PTT Baseline POC ABG pH POC ABG pCO2 POC ABG pO2 Sodium Potassium Chloride Carbon Dioxide BUN Creatinine Glucose POC Glucose 140 H Lactic Acid 3.10 H* Uric Acid Calcium Phosphorus Iron TIBC Erythropoietin Ferritin Total Bilirubin Direct Bilirubin AST ALT Alkaline Phosphatase Lactate Dehydrogenase C-Reactive Protein Serum Total Protein Total Protein Albumin Ojwio-0-Gyylnklsk Abnorm Protein Band 1 PEP Interpretation Crossmatch 10/25/16 10/25/16 10/25/16 05:00 05:22 11:58 WBC RBC Hgb Hct MCV MCHC RDW Plt Count Seg Neuts % (Manual) Lymphocytes % (Manual) Nucleated RBC % Seg Neutrophils # Man Lymphocytes # (Manual) Haptoglobin PT INR Fibrinogen Lupus Anticoagulant LA PTT Baseline POC ABG pH POC ABG pCO2 POC ABG pO2 Sodium Potassium Chloride 91.6 L Carbon Dioxide BUN 89 H Creatinine 3.9 H Glucose 150 H POC Glucose 164 H 189 H Lactic Acid Uric Acid Calcium 6.9 L Phosphorus Iron TIBC Erythropoietin Ferritin Total Bilirubin Direct Bilirubin AST ALT Alkaline Phosphatase Lactate Dehydrogenase C-Reactive Protein Serum Total Protein Total Protein Albumin Skwob-0-Hynlnlbhz Abnorm Protein Band 1 PEP Interpretation Crossmatch 10/25/16 10/25/16 10/26/16 17:56 23:12 04:00 WBC RBC Hgb Hct MCV MCHC RDW Plt Count Seg Neuts % (Manual) Lymphocytes % (Manual) Nucleated RBC % Seg Neutrophils # Man Lymphocytes # (Manual) Haptoglobin PT INR Fibrinogen Lupus Anticoagulant LA PTT Baseline POC ABG pH POC ABG pCO2 POC ABG pO2 Sodium 135 L Potassium Chloride 90.7 L Carbon Dioxide BUN 64 H Creatinine 2.9 H Glucose 132 H POC Glucose 156 H 133 H Lactic Acid Uric Acid Calcium 7.3 L Phosphorus Iron TIBC Erythropoietin Ferritin Total Bilirubin Direct Bilirubin AST ALT Alkaline Phosphatase Lactate Dehydrogenase C-Reactive Protein Serum Total Protein Total Protein Albumin Ftqrr-7-Yjbhvbmpx Abnorm Protein Band 1 PEP Interpretation Crossmatch 10/26/16 10/26/16 10/26/16 05:14 06:15 11:51 WBC 18.6 H RBC 3.15 L Hgb 9.6 L Hct 29.0 L MCV MCHC RDW 17.8 H Plt Count 71 L Seg Neuts % (Manual) 85.0 H Lymphocytes % (Manual) 1.0 L Nucleated RBC % Seg Neutrophils # Man 15.8 H Lymphocytes # (Manual) 0.2 L Haptoglobin PT INR Fibrinogen Lupus Anticoagulant LA PTT Baseline POC ABG pH POC ABG pCO2 POC ABG pO2 Sodium Potassium Chloride Carbon Dioxide BUN Creatinine Glucose POC Glucose 130 H 139 H Lactic Acid Uric Acid Calcium Phosphorus Iron TIBC Erythropoietin Ferritin Total Bilirubin Direct Bilirubin AST ALT Alkaline Phosphatase Lactate Dehydrogenase C-Reactive Protein Serum Total Protein Total Protein Albumin Xiapo-2-Sghvhbqyy Abnorm Protein Band 1 PEP Interpretation Crossmatch 10/26/16 10/26/16 10/27/16 17:25 23:35 04:10 WBC 16.8 H RBC 3.38 L Hgb 10.1 L Hct 31.0 L MCV MCHC RDW 18.0 H Plt Count 77 L Seg Neuts % (Manual) 92.0 H Lymphocytes % (Manual) 1.0 L Nucleated RBC % 1.0 H Seg Neutrophils # Man 15.5 H Lymphocytes # (Manual) 0.2 L Haptoglobin PT INR Fibrinogen Lupus Anticoagulant LA PTT Baseline POC ABG pH POC ABG pCO2 POC ABG pO2 Sodium Potassium Chloride Carbon Dioxide BUN Creatinine Glucose POC Glucose 118 H 145 H Lactic Acid Uric Acid Calcium Phosphorus Iron TIBC Erythropoietin Ferritin Total Bilirubin Direct Bilirubin AST ALT Alkaline Phosphatase Lactate Dehydrogenase C-Reactive Protein Serum Total Protein Total Protein Albumin Vzplx-8-Zhgdwsisq Abnorm Protein Band 1 PEP Interpretation Crossmatch 10/27/16 10/27/16 10/27/16 04:10 05:53 08:14 WBC RBC Hgb Hct MCV MCHC RDW Plt Count Seg Neuts % (Manual) Lymphocytes % (Manual) Nucleated RBC % Seg Neutrophils # Man Lymphocytes # (Manual) Haptoglobin PT 23.0 H INR 2.03 H Fibrinogen Lupus Anticoagulant LA PTT Baseline POC ABG pH POC ABG pCO2 POC ABG pO2 Sodium Potassium Chloride 95.5 L Carbon Dioxide BUN 63 H Creatinine 2.8 H Glucose 112 H POC Glucose 127 H Lactic Acid Uric Acid Calcium 7.5 L Phosphorus Iron TIBC Erythropoietin Ferritin Total Bilirubin Direct Bilirubin AST ALT Alkaline Phosphatase Lactate Dehydrogenase C-Reactive Protein Serum Total Protein Total Protein Albumin Ywmzc-2-Voozesakf Abnorm Protein Band 1 PEP Interpretation Crossmatch 10/27/16 10/27/16 10/27/16 11:56 17:47 23:55 WBC RBC Hgb Hct MCV MCHC RDW Plt Count Seg Neuts % (Manual) Lymphocytes % (Manual) Nucleated RBC % Seg Neutrophils # Man Lymphocytes # (Manual) Haptoglobin PT INR Fibrinogen Lupus Anticoagulant LA PTT Baseline POC ABG pH POC ABG pCO2 POC ABG pO2 Sodium Potassium Chloride Carbon Dioxide BUN Creatinine Glucose POC Glucose 113 H 117 H 142 H Lactic Acid Uric Acid Calcium Phosphorus Iron TIBC Erythropoietin Ferritin Total Bilirubin Direct Bilirubin AST ALT Alkaline Phosphatase Lactate Dehydrogenase C-Reactive Protein Serum Total Protein Total Protein Albumin Hazxb-6-Lnvyfwory Abnorm Protein Band 1 PEP Interpretation Crossmatch 10/28/16 10/28/16 10/28/16 05:45 05:45 11:44 WBC 16.6 H RBC 3.18 L Hgb 9.5 L Hct 29.3 L MCV MCHC RDW 17.6 H Plt Count 83 L Seg Neuts % (Manual) 87.0 H Lymphocytes % (Manual) 3.0 L Nucleated RBC % Seg Neutrophils # Man 14.4 H Lymphocytes # (Manual) 0.5 L Haptoglobin PT INR Fibrinogen Lupus Anticoagulant LA PTT Baseline POC ABG pH POC ABG pCO2 POC ABG pO2 Sodium Potassium Chloride 94.6 L Carbon Dioxide 21 L BUN 90 H Creatinine 3.9 H Glucose 152 H POC Glucose 151 H Lactic Acid Uric Acid Calcium 6.9 L Phosphorus Iron TIBC Erythropoietin Ferritin Total Bilirubin Direct Bilirubin AST ALT Alkaline Phosphatase Lactate Dehydrogenase C-Reactive Protein Serum Total Protein Total Protein Albumin Vtaqa-4-Ofmjqstmk Abnorm Protein Band 1 PEP Interpretation Crossmatch 10/28/16 10/28/16 10/29/16 17:31 23:47 04:53 WBC RBC Hgb Hct MCV MCHC RDW Plt Count Seg Neuts % (Manual) Lymphocytes % (Manual) Nucleated RBC % Seg Neutrophils # Man Lymphocytes # (Manual) Haptoglobin PT INR Fibrinogen Lupus Anticoagulant LA PTT Baseline POC ABG pH POC ABG pCO2 POC ABG pO2 Sodium Potassium Chloride Carbon Dioxide BUN Creatinine Glucose POC Glucose 184 H 124 H 153 H Lactic Acid Uric Acid Calcium Phosphorus Iron TIBC Erythropoietin Ferritin Total Bilirubin Direct Bilirubin AST ALT Alkaline Phosphatase Lactate Dehydrogenase C-Reactive Protein Serum Total Protein Total Protein Albumin Vetbq-0-Vcwgxdyia Abnorm Protein Band 1 PEP Interpretation Crossmatch 10/29/16 10/29/16 10/29/16 06:15 06:15 10:58 WBC 14.1 H RBC 3.15 L Hgb 9.6 L Hct 29.1 L MCV MCHC RDW 17.9 H Plt Count 73 L Seg Neuts % (Manual) 93.0 H Lymphocytes % (Manual) 4.0 L Nucleated RBC % Seg Neutrophils # Man 13.1 H Lymphocytes # (Manual) 0.6 L Haptoglobin PT INR Fibrinogen Lupus Anticoagulant LA PTT Baseline POC ABG pH POC ABG pCO2 POC ABG pO2 Sodium Potassium Chloride Carbon Dioxide BUN 58 H Creatinine 2.7 H Glucose 146 H POC Glucose 134 H Lactic Acid Uric Acid Calcium 7.4 L Phosphorus 5.00 H Iron TIBC Erythropoietin Ferritin Total Bilirubin Direct Bilirubin AST ALT Alkaline Phosphatase Lactate Dehydrogenase C-Reactive Protein Serum Total Protein Total Protein Albumin Vxkoz-0-Aogxbmexl Abnorm Protein Band 1 PEP Interpretation Crossmatch 10/29/16 10/29/16 10/30/16 17:06 23:28 05:16 WBC RBC Hgb Hct MCV MCHC RDW Plt Count Seg Neuts % (Manual) Lymphocytes % (Manual) Nucleated RBC % Seg Neutrophils # Man Lymphocytes # (Manual) Haptoglobin PT INR Fibrinogen Lupus Anticoagulant LA PTT Baseline POC ABG pH POC ABG pCO2 POC ABG pO2 Sodium Potassium Chloride Carbon Dioxide BUN Creatinine Glucose POC Glucose 158 H 133 H 147 H Lactic Acid Uric Acid Calcium Phosphorus Iron TIBC Erythropoietin Ferritin Total Bilirubin Direct Bilirubin AST ALT Alkaline Phosphatase Lactate Dehydrogenase C-Reactive Protein Serum Total Protein Total Protein Albumin Pdocu-2-Fyckrxzbb Abnorm Protein Band 1 PEP Interpretation Crossmatch 10/30/16 10/30/16 10/30/16 06:35 06:35 12:08 WBC 13.0 H RBC 3.08 L Hgb 9.3 L Hct 28.7 L MCV MCHC RDW 18.4 H Plt Count 73 L Seg Neuts % (Manual) Lymphocytes % (Manual) Nucleated RBC % Seg Neutrophils # Man Lymphocytes # (Manual) Haptoglobin PT INR Fibrinogen Lupus Anticoagulant LA PTT Baseline POC ABG pH POC ABG pCO2 POC ABG pO2 Sodium Potassium Chloride Carbon Dioxide BUN 86 H Creatinine 3.5 H Glucose 132 H POC Glucose 134 H Lactic Acid Uric Acid Calcium 7.1 L Phosphorus 5.90 H Iron TIBC Erythropoietin Ferritin Total Bilirubin Direct Bilirubin AST ALT Alkaline Phosphatase Lactate Dehydrogenase C-Reactive Protein Serum Total Protein Total Protein Albumin Aoxee-5-Tkiiykhut Abnorm Protein Band 1 PEP Interpretation Crossmatch 10/30/16 10/30/16 10/31/16 18:02 23:31 05:21 WBC RBC Hgb Hct MCV MCHC RDW Plt Count Seg Neuts % (Manual) Lymphocytes % (Manual) Nucleated RBC % Seg Neutrophils # Man Lymphocytes # (Manual) Haptoglobin PT INR Fibrinogen Lupus Anticoagulant LA PTT Baseline POC ABG pH POC ABG pCO2 POC ABG pO2 Sodium Potassium Chloride Carbon Dioxide BUN Creatinine Glucose POC Glucose 142 H 152 H 152 H Lactic Acid Uric Acid Calcium Phosphorus Iron TIBC Erythropoietin Ferritin Total Bilirubin Direct Bilirubin AST ALT Alkaline Phosphatase Lactate Dehydrogenase C-Reactive Protein Serum Total Protein Total Protein Albumin Bnaea-6-Qdtzrzwhs Abnorm Protein Band 1 PEP Interpretation Crossmatch 10/31/16 10/31/16 10/31/16 06:21 06:21 12:12 WBC 11.9 H RBC 2.82 L Hgb 8.6 L Hct 26.4 L MCV MCHC RDW 17.8 H Plt Count 56 L Seg Neuts % (Manual) Lymphocytes % (Manual) 0 L Nucleated RBC % Seg Neutrophils # Man 10.9 H Lymphocytes # (Manual) 0.0 L Haptoglobin PT INR Fibrinogen Lupus Anticoagulant LA PTT Baseline POC ABG pH POC ABG pCO2 POC ABG pO2 Sodium Potassium Chloride Carbon Dioxide 21 L BUN 107 H Creatinine 4.2 H Glucose 137 H POC Glucose 142 H Lactic Acid Uric Acid Calcium 7.2 L Phosphorus 6.50 H Iron TIBC Erythropoietin Ferritin Total Bilirubin Direct Bilirubin AST ALT Alkaline Phosphatase Lactate Dehydrogenase C-Reactive Protein Serum Total Protein Total Protein Albumin Kphay-8-Bakzdfalc Abnorm Protein Band 1 PEP Interpretation Crossmatch 10/31/16 10/31/16 11/01/16 17:34 23:46 05:15 WBC RBC Hgb Hct MCV MCHC RDW Plt Count Seg Neuts % (Manual) Lymphocytes % (Manual) Nucleated RBC % Seg Neutrophils # Man Lymphocytes # (Manual) Haptoglobin PT INR Fibrinogen Lupus Anticoagulant LA PTT Baseline POC ABG pH POC ABG pCO2 POC ABG pO2 Sodium Potassium Chloride Carbon Dioxide BUN Creatinine Glucose POC Glucose 180 H 131 H 148 H Lactic Acid Uric Acid Calcium Phosphorus Iron TIBC Erythropoietin Ferritin Total Bilirubin Direct Bilirubin AST ALT Alkaline Phosphatase Lactate Dehydrogenase C-Reactive Protein Serum Total Protein Total Protein Albumin Lbony-5-Xtpclstjq Abnorm Protein Band 1 PEP Interpretation Crossmatch 11/01/16 11/01/16 11/01/16 06:00 06:00 11:45 WBC RBC 2.66 L Hgb 8.1 L Hct 24.8 L MCV MCHC RDW 17.7 H Plt Count 47 L Seg Neuts % (Manual) 88.0 H Lymphocytes % (Manual) 0 L Nucleated RBC % Seg Neutrophils # Man Lymphocytes # (Manual) 0.0 L Haptoglobin PT INR Fibrinogen Lupus Anticoagulant LA PTT Baseline POC ABG pH POC ABG pCO2 POC ABG pO2 Sodium 134 L Potassium Chloride 95.6 L Carbon Dioxide BUN 90 H Creatinine 3.5 H Glucose 154 H POC Glucose 169 H Lactic Acid Uric Acid Calcium 7.1 L Phosphorus 5.50 H Iron TIBC Erythropoietin Ferritin Total Bilirubin Direct Bilirubin AST ALT Alkaline Phosphatase Lactate Dehydrogenase C-Reactive Protein Serum Total Protein Total Protein Albumin Pbfgl-9-Jifrgjfrx Abnorm Protein Band 1 PEP Interpretation Crossmatch 11/01/16 11/01/16 11/01/16 18:33 20:55 23:51 WBC RBC Hgb Hct MCV MCHC RDW Plt Count Seg Neuts % (Manual) Lymphocytes % (Manual) Nucleated RBC % Seg Neutrophils # Man Lymphocytes # (Manual) Haptoglobin PT INR Fibrinogen Lupus Anticoagulant LA PTT Baseline POC ABG pH POC ABG pCO2 POC ABG pO2 Sodium Potassium Chloride Carbon Dioxide BUN Creatinine Glucose POC Glucose 128 H 144 H Lactic Acid 3.10 H* Uric Acid Calcium Phosphorus Iron TIBC Erythropoietin Ferritin Total Bilirubin Direct Bilirubin AST ALT Alkaline Phosphatase Lactate Dehydrogenase C-Reactive Protein Serum Total Protein Total Protein Albumin Mujms-2-Vevozfhff Abnorm Protein Band 1 PEP Interpretation Crossmatch 11/02/16 11/02/16 11/02/16 05:15 05:15 05:24 WBC RBC 2.69 L Hgb 8.2 L Hct 25.1 L MCV MCHC RDW 16.9 H Plt Count 42 L Seg Neuts % (Manual) 94.0 H Lymphocytes % (Manual) 0 L Nucleated RBC % Seg Neutrophils # Man Lymphocytes # (Manual) 0.0 L Haptoglobin PT INR Fibrinogen Lupus Anticoagulant LA PTT Baseline POC ABG pH POC ABG pCO2 POC ABG pO2 Sodium 135 L Potassium Chloride 97.7 L Carbon Dioxide BUN 67 H Creatinine 2.8 H Glucose 107 H POC Glucose 119 H Lactic Acid Uric Acid Calcium 7.3 L Phosphorus 4.90 H Iron TIBC Erythropoietin Ferritin Total Bilirubin Direct Bilirubin AST ALT Alkaline Phosphatase Lactate Dehydrogenase C-Reactive Protein Serum Total Protein Total Protein Albumin Itvwe-7-Ekgzyajvz Abnorm Protein Band 1 PEP Interpretation Crossmatch 11/02/16 11/02/16 11/02/16 06:07 09:26 10:00 WBC RBC 2.83 L Hgb 8.7 L Hct 26.5 L MCV MCHC RDW 17.4 H Plt Count 46 L Seg Neuts % (Manual) Lymphocytes % (Manual) Nucleated RBC % Seg Neutrophils # Man Lymphocytes # (Manual) Haptoglobin PT 19.9 H INR 1.69 H Fibrinogen Lupus Anticoagulant LA PTT Baseline POC ABG pH POC ABG pCO2 POC ABG pO2 Sodium Potassium Chloride Carbon Dioxide BUN Creatinine Glucose POC Glucose 111 H Lactic Acid Uric Acid Calcium Phosphorus Iron TIBC Erythropoietin Ferritin Total Bilirubin Direct Bilirubin AST ALT Alkaline Phosphatase Lactate Dehydrogenase C-Reactive Protein Serum Total Protein Total Protein Albumin Nmokz-8-Lhspzyhfj Abnorm Protein Band 1 PEP Interpretation Crossmatch 11/03/16 11/03/16 11/03/16 00:02 03:25 03:25 WBC RBC 2.34 L Hgb 7.0 L Hct 21.9 L MCV MCHC RDW 17.6 H Plt Count 49 L Seg Neuts % (Manual) 86.0 H Lymphocytes % (Manual) 4.0 L Nucleated RBC % Seg Neutrophils # Man Lymphocytes # (Manual) 0.3 L Haptoglobin PT INR Fibrinogen Lupus Anticoagulant LA PTT Baseline POC ABG pH POC ABG pCO2 POC ABG pO2 Sodium 136 L Potassium Chloride 94.6 L Carbon Dioxide 21 L BUN 84 H Creatinine 3.2 H Glucose 116 H POC Glucose 114 H Lactic Acid Uric Acid Calcium 7.0 L Phosphorus 5.80 H Iron TIBC Erythropoietin Ferritin Total Bilirubin Direct Bilirubin AST ALT Alkaline Phosphatase Lactate Dehydrogenase C-Reactive Protein Serum Total Protein Total Protein Albumin Hhayf-7-Gmmcfqgug Abnorm Protein Band 1 PEP Interpretation Crossmatch 11/03/16 03:25 WBC RBC Hgb Hct MCV MCHC RDW Plt Count Seg Neuts % (Manual) Lymphocytes % (Manual) Nucleated RBC % Seg Neutrophils # Man Lymphocytes # (Manual) Haptoglobin PT 22.5 H INR 1.98 H Fibrinogen Lupus Anticoagulant LA PTT Baseline POC ABG pH POC ABG pCO2 POC ABG pO2 Sodium Potassium Chloride Carbon Dioxide BUN Creatinine Glucose POC Glucose Lactic Acid Uric Acid Calcium Phosphorus Iron TIBC Erythropoietin Ferritin Total Bilirubin Direct Bilirubin AST ALT Alkaline Phosphatase Lactate Dehydrogenase C-Reactive Protein Serum Total Protein Total Protein Albumin Frhhs-0-Hqsfvqnku Abnorm Protein Band 1 PEP Interpretation Crossmatch Chest x-ray: image reviewed Allied health notes reviewed: RT
[2016-11-03] MEDS ORDERED: NACL 0.9% 500 ML 500 ML IV ONE (12:12)
--- NOTE | 2016-11-03 13:56 | Progress Note ---
Assessment and Plan Assessment and plan: Patient is a 61-year-old man without known past medical history who presented to the emergency department [facility] on 10/13/16, complaining of bilateral leg swelling that worsened for the last 4 days. He was found to have severe metabolic acidosis, creatinine was 14.5 with hyperkalemia, emergent Hemodialysis was done. He was also found to have severe pancytopenia, thrombocytopenia and Dr. 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 He was on bipap and was intubated 10/16/16, details are not readily available on why he needed to be intubated, no nursing note for 10/16. -Acute encephalopathy, not sedated, see Neurologist note below -AFIB WITH RVR: Cardiology is following -Group B strep bacteremia: JONATHAN done on 10/27/16 but plt count too low, probably when plt count over 50k -Acute Respiratory failure with hypoxia, intubated: continue mv -Pancytopenia [leukopenia, severe anemia, Woresening thrombocytopenia] heme/onc is following, s/p PLASMAPHERSIS, s/p PRBC transfusion, s/p plt -ARF, renal tubular stasis, poa -secondary coagulopathy -Lactic acidosis -Probable TTP, await [id number] results -hypoglycemia -Acute systolic congestive heart failure EF around 30% -SEVERE SEPSIS, poa per Neurologist, Dr. Bernardo "61 YO M Hx HTN admitted 10/13 w/ sepsis w/ bacteremia, severe metabolic acidosis , RAJESH requiring emergent HD, severe pancytopenia, ? DIC vs. HUS vs. TTP on Plasmapheresis and acute respiratory failure with hypoxia s/p intubation. There has not been cleared documented episode of cardiac arrest but pt was hypotensive during admission. On exam eyes open to stimlation, stuporous MS poor concentration, paucity of speech, intact brainstem reflexes but not able to follow midline/peripheral commands w/ grossly intact motor-sensory exam as withdraws from pain in UE but triple flexion LE but otherwise grossly intact symmetric neurologic exam, consistent with toxic metabolic infectious derangement as the etiology for neurologic decompensation. CTH 10/13 vague L anterior internal capsule hypodensities and chronic lacunes L brainstem and L periventricular white matter. B12/TSH/NH4 normal. 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 No Stone dispensed d/t RAJESH. TTE w/o endocarditis/thrombus. Recommendations: 1. Check f/u CTH and CTA H/N 2. Cont Infectious work up/medical management for UTI, PNA, cellulitis, bacteremia, etc. 3. Avoid hyponatremia, hypo/hyper-calcemia, hypo/hyperglycemia, acidosis, hypoxia/hypoxemia, hypercarbia/hypercapnia 4. Avoid institution of any psychoactive medications (e.g. antihistamines, anticholinergics, BZD, hypnotics, opiates) as able unless low doses of low potency antipsychotic needed for behavioral issues complicating medical care 5. Thiamine/Folate/CIWA protocol accordingly for any hx obtained to suggest EtOH withdrawal 6. Cont home meds-there is no neurologic indication to change CTH confirms multifocal hemorrhagic lesions but no midline shift/compression of brain structures/significant mass effect and is actually improved from prior MRI. CTA H/N w/o vascular lesion. JONATHAN w/o endocarditis or source of emboli. 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 Recs: 1. Avoid all blood thinners until hemorrhage stable 2. BP control: goal < 140/90 using prn Labetalol/Hydralyzine/Nicardipine. Cont home BP med. 3. Cont Infectious work up/medical management for UTI, PNA, cellulitis, bacteremia, etc. 3. Avoid hyponatremia, hypo/hyper-calcemia, hypo/hyperglycemia, acidosis, hypoxia/hypoxemia, hypercarbia/hypercapnia 4. Avoid institution of any psychoactive medications (e.g. antihistamines, anticholinergics, BZD, hypnotics, opiates) as able unless low doses of low potency antipsychotic needed for behavioral issues complicating medical care 5. Thiamine/Folate/CIWA protocol accordingly for any hx obtained to suggest EtOH withdrawal 6. Cont home meds-there is no neurologic indication to change 7. DVT Prophylaxis: SCDs/TEDs 8. Dispo: PT/OT/CM evaluations" Trach and peg done drop in HCt, transfuse prbc and repeat h/h History Interval history: Patient seen and examined. Follow up on respiratory failure, patient still intubated. Overnight uneventful. No cp, sob, n/v or severe headaches. Imaging, old records, testing, labs, nursing notes reviewed. Hospitalist Physical - Physical exam Narrative exam: GEN: Critically ill intubated but not sedated HEENT: Eyes are floating, ET tube in place CVS: irregular, NORMAL S1S2 LUNGS/CHEST: NORMAL CHEST EXPANSION B, GOOD AIR ENTRY B ABD: SOFT, POSITIVE BOWEL SOUNDS, NONDISTENDED, NO REBOUND OR GUARDING NEURO: CN 2-12 GROSSLY INTACT, he doesn't follow commands PSY: Unresponsive - Constitutional Vitals: Temp Pulse Resp BP Pulse Ox 99.3 F 94 H 32 H 88/60 99 11/03/16 08:00 11/03/16 10:31 11/03/16 10:31 11/03/16 10:31 11/03/16 10:31 General appearance: Absent: severe distress Results - Labs CBC & Chem 7: 11/03/16 03:25 11/03/16 03:25 Labs: Laboratory Last Values WBC 8.1 K/mm3 (4.5-11.0) 11/03/16 03:25 RBC 2.34 M/mm3 (3.65-5.03) L 11/03/16 03:25 Hgb 7.0 gm/dl (11.8-15.2) L 11/03/16 03:25 Hct 21.9 % (35.5-45.6) L 11/03/16 03:25 MCV 94 fl (84-94) 11/03/16 03:25 MCH 30 pg (28-32) 11/03/16 03:25 MCHC 32 % (32-34) 11/03/16 03:25 RDW 17.6 % (13.2-15.2) H 11/03/16 03:25 Plt Count 49 K/mm3 (140-440) L 11/03/16 03:25 Lymph % (Auto) Data Reviewer 10/14/16 04:34 Pender % (Auto) Data Reviewer 10/14/16 04:34 Eos % (Auto) Data Reviewer 10/14/16 04:34 Baso % (Auto) Data Reviewer 10/14/16 04:34 Lymph # Data Reviewer 10/14/16 04:34 Pender # Data Reviewer 10/14/16 04:34 Eos # Data Reviewer 10/14/16 04:34 Baso # Data Reviewer 10/14/16 04:34 Add Manual Diff Complete 11/03/16 03:25 Total Counted 100 11/03/16 03:25 Seg Neutrophils % Data Reviewer 11/03/16 03:25 Seg Neuts % (Manual) 86.0 % (40.0-70.0) H 11/03/16 03:25 Band Neutrophils % 10.0 % 11/03/16 03:25 Lymphocytes % (Manual) 4.0 % (13.4-35.0) L 11/03/16 03:25 Reactive Lymphs % (Man) 0 % 11/03/16 03:25 Monocytes % (Manual) 0 % (0.0-7.3) 11/03/16 03:25 Eosinophils % (Manual) 0 % (0.0-4.3) 11/03/16 03:25 Basophils % (Manual) 0 % (0.0-1.8) 11/03/16 03:25 Metamyelocytes % 0 % 11/03/16 03:25 Myelocytes % 0 % 11/03/16 03:25 Promyelocytes % 0 % 11/03/16 03:25 Blast Cells % 0 % 11/03/16 03:25 Nucleated RBC % Not Reportable 11/03/16 03:25 Seg Neutrophils # Data Reviewer 10/14/16 04:34 Seg Neutrophils # Man 7.0 K/mm3 (1.8-7.7) 11/03/16 03:25 Band Neutrophils # 0.8 K/mm3 11/03/16 03:25 Lymphocytes # (Manual) 0.3 K/mm3 (1.2-5.4) L 11/03/16 03:25 Abs React Lymphs (Man) 0.0 K/mm3 11/03/16 03:25 Monocytes # (Manual) 0.0 K/mm3 (0.0-0.8) 11/03/16 03:25 Eosinophils # (Manual) 0.0 K/mm3 (0.0-0.4) 11/03/16 03:25 Basophils # (Manual) 0.0 K/mm3 (0.0-0.1) 11/03/16 03:25 Metamyelocytes # 0.0 K/mm3 11/03/16 03:25 Myelocytes # 0.0 K/mm3 11/03/16 03:25 Promyelocytes # 0.0 K/mm3 11/03/16 03:25 Blast Cells # 0.0 K/mm3 11/03/16 03:25 WBC Morphology Not Reportable 11/03/16 03:25 Hypersegmented Neuts Not Reportable 11/03/16 03:25 Hyposegmented Neuts Not Reportable 11/03/16 03:25 Hypogranular Neuts Not Reportable 11/03/16 03:25 Smudge Cells Not Reportable 11/03/16 03:25 Toxic Granulation Not Reportable 11/03/16 03:25 Toxic Vacuolation Not Reportable 11/03/16 03:25 Dohle Bodies Not Reportable 11/03/16 03:25 Pelger-Huet Anomaly Not Reportable 11/03/16 03:25 Madhu Rods Not Reportable 11/03/16 03:25 Platelet Estimate Appears decreased 11/03/16 03:25 Clumped Platelets Not Reportable 11/03/16 03:25 Plt Clumps, EDTA Not Reportable 11/03/16 03:25 Large Platelets Few 11/03/16 03:25 Giant Platelets Not Reportable 11/03/16 03:25 Platelet Satelliting Not Reportable 11/03/16 03:25 Plt Morphology Comment Not Reportable 11/03/16 03:25 RBC Morphology Not Reportable 11/03/16 03:25 Dimorphic RBCs Not Reportable 11/03/16 03:25 Polychromasia Not Reportable 11/03/16 03:25 Hypochromasia Few 11/03/16 03:25 Poikilocytosis Not Reportable 11/03/16 03:25 Basophilic Stippling Rare 10/21/16 10:30 Anisocytosis 2+ 11/03/16 03:25 Microcytosis 1+ 11/03/16 03:25 Macrocytosis Not Reportable 11/03/16 03:25 Spherocytes Not Reportable 11/03/16 03:25 Pappenheimer Bodies Not Reportable 11/03/16 03:25 Sickle Cells Not Reportable 11/03/16 03:25 Target Cells Not Reportable 11/03/16 03:25 Tear Drop Cells Not Reportable 11/03/16 03:25 Ovalocytes Not Reportable 11/03/16 03:25 Stomatocytes Few 10/28/16 05:45 Helmet Cells Not Reportable 11/03/16 03:25 [place] Bodies Not Reportable 11/03/16 03:25 [place] Rings Not Reportable 11/03/16 03:25 Sabrina Cells Not Reportable 11/03/16 03:25 Bite Cells Not Reportable 11/03/16 03:25 Crenated Cell Not Reportable 11/03/16 03:25 Elliptocytes Not Reportable 11/03/16 03:25 Acanthocytes (Spur) Not Reportable 11/03/16 03:25 Rouleaux Not Reportable 11/03/16 03:25 Hemoglobin C Crystals Not Reportable 11/03/16 03:25 Schistocytes Not Reportable 11/03/16 03:25 Malaria parasites Not Reportable 11/03/16 03:25 ESR 77 mm/Hr (0-20) 10/14/16 04:34 Pal Bodies Not Reportable 11/03/16 03:25 Haptoglobin <15 mg/dL (43-212) L 10/15/16 12:00 Hem Pathologist Commnt No 11/03/16 03:25 PT 22.5 Sec. (12.2-14.9) H 11/03/16 03:25 INR 1.98 (0.87-1.13) H 11/03/16 03:25 Fibrinogen 557 mg/dl (211-480) H 10/14/16 09:58 Lupus Anticoagulant see below H 10/14/16 03:00 LA PTT Baseline 55 sec (<=40) H 10/14/16 03:00 dRVVT Confirm Interp Negative (Negative) 10/14/16 03:00 POC ABG pH 7.410 (7.35-7.45) 10/28/16 12:51 POC ABG pCO2 37.8 (35-45) 10/28/16 12:51 POC ABG pO2 93 (80-105) 10/28/16 12:51 POC ABG HCO3 24.0 10/28/16 12:51 POC ABG Total CO2 25 10/28/16 12:51 POC ABG O2 Sat 97 10/28/16 12:51 POC ABG Base Excess -1 10/28/16 12:51 FiO2 25 % 10/28/16 12:51 Sodium 136 mmol/L (137-145) L 11/03/16 03:25 Potassium 4.9 mmol/L (3.6-5.0) 11/03/16 03:25 Chloride 94.6 mmol/L (98-107) L 11/03/16 03:25 Carbon Dioxide 21 mmol/L (22-30) L 11/03/16 03:25 Anion Gap 25 mmol/L 11/03/16 03:25 BUN 84 mg/dL (9-20) H 11/03/16 03:25 Creatinine 3.2 mg/dL (0.8-1.5) H 11/03/16 03:25 Estimated GFR 20 ml/min 11/03/16 03:25 BUN/Creatinine Ratio 26.25 % 11/03/16 03:25 Glucose 116 mg/dL (75-100) H 11/03/16 03:25 POC Glucose 114 (70-105) H 11/03/16 00:02 Lactic Acid 3.10 mmol/L (0.7-2.0) H* 11/01/16 20:55 Uric Acid 8.0 mg/dL (3.5-7.6) H 10/14/16 03:00 Calcium 7.0 mg/dL (8.4-10.2) L 11/03/16 03:25 Phosphorus 5.80 mg/dL (2.5-4.5) H 11/03/16 03:25 Iron 146 ug/dL (49-181) 10/15/16 05:35 TIBC 166 mcg/dL (250-450) L 10/15/16 05:35 Erythropoietin 148.2 mIU/mL (2.6-18.5) H 10/19/16 14:15 Ferritin 9562.0 ng/mL (13.0-400.0) H 10/15/16 05:35 Total Bilirubin 2.10 mg/dL (0.1-1.2) H 10/24/16 07:00 Direct Bilirubin 1.1 mg/dL (0-0.2) H 10/14/16 09:58 Indirect Bilirubin 0.2 mg/dL 10/14/16 09:58 AST 68 units/L (5-40) H 10/24/16 07:00 ALT 46 units/L (7-56) 10/24/16 07:00 Alkaline Phosphatase 224 units/L (35-129) H 10/24/16 07:00 Ammonia 32.0 umol/L (25-60) 10/19/16 14:15 Lactate Dehydrogenase 3871 units/L (91-180) H 10/15/16 05:35 Troponin T 0.079 ng/mL (0.00-0.029) H 10/13/16 10:14 C-Reactive Protein 7.40 mg/dL (0.00-1.30) H 10/24/16 16:30 NT-Pro-B Natriuret Pep > 37018 pg/mL (0-900) H 10/13/16 10:14 Serum Total Protein 5.6 g/dL (6.1-8.1) L 10/13/16 14:50 Total Protein 4.8 g/dL (6.3-8.2) L 10/24/16 07:00 Albumin 2.3 g/dL (3.9-5) L 10/24/16 07:00 Albumin/Globulin Ratio 0.9 % 10/24/16 07:00 Uwoqy-4-Dpzrikizt 0.5 g/dL (0.2-0.3) H 10/13/16 14:50 Xsnoa-4-Jnmchpszx 0.6 g/dL (0.5-0.9) 10/13/16 14:50 Beta Globulins 0.3 g/dL (0.2-0.5) 10/13/16 14:50 Gamma Globulins 1.7 g/dL (0.8-1.7) 10/13/16 14:50 Abnorm Protein Band 1 1.4 g/dL H 10/13/16 14:50 PEP Interpretation see below H 10/13/16 14:50 Triglycerides 119 mg/dL (2-149) 10/13/16 10:14 Cholesterol 71 mg/dL (50-199) 10/13/16 10:14 LDL Cholesterol Direct 41 mg/dL (50-130) L 10/13/16 10:14 HDL Cholesterol 7 mg/dL (40-59) L 10/13/16 10:14 Cholesterol/HDL Ratio 10.14 % 10/13/16 10:14 Lipase 21 units/L (13-60) 10/15/16 05:35 Vitamin B12 893.9 pg/mL (211-911) 10/14/16 03:00 TSH 0.526 mlU/mL (0.270-4.200) 10/19/16 14:15 Random Vancomycin 19.2 ug/mL (0-40.0) 11/01/16 06:00 IgG 1040 mg/dL (694-1618) 10/19/16 14:15 IgA 149 mg/dL (81-463) 10/19/16 14:15 IgM 53 mg/dL (48-271) 10/19/16 14:15 XU Screen Negative (Negative) 10/13/16 14:50 Proteinase 3 (PR3) Ab <1.0 AI (<1.0) 10/13/16 14:50 Myeloperoxidase Ab <1.0 AI (<1.0) 10/13/16 14:50 Glomerular Base Mem IgG <1.0 AI (<1.0) 10/13/16 14:50 Complement C3 101 mg/dL (90-180) 10/13/16 14:50 Complement C4 16 mg/dL (16-47) 10/13/16 14:50 Hep Bs Antigen Non-reactive (Negative) 10/13/16 14:50 Hepatitis C Antibody Non-reactive (NonReactive) 10/13/16 14:50 HIV 1&2 Antibody Rapid Non react (Non React) 10/13/16 14:50 HIV P24 Antigen Non react (Non React) 10/13/16 14:50 Schistocytes Smear None seen 10/15/16 12:00 Flow Intrp 16+ Markers Scanned into [facility] rec 10/14/16 11:30 Flow Cytometry Interp Scanned into [facility] rec 10/14/16 11:30 Miscellaneous Test Flexitest 1 10/26/16 06:15 Blood Type O POSITIVE 10/24/16 11:45 Antibody Screen TNR 10/24/16 11:45 MADIHA Antibody Screen Negative 10/24/16 11:45 Direct Antiglob Test Negative 10/14/16 03:00 ELAINE, Poly Interpret Negative 10/14/16 03:00 Crossmatch See Detail 10/24/16 11:45
--- NOTE | 2016-11-03 14:01 | XRay Report ---
PORTABLE CHEST INDICATION: Status post tracheostomy. COMPARISON: 10/29/2016 FINDINGS: Portable, frontal chest radiograph demonstrates interval ET tube replacement by a tracheostomy tube. Interval Dobbhoff tube removal. Stable right sided central catheter tip deep in the right atrium as also a right upper extremity PICC tip along the distal SVC. Stable cardiomediastinal silhouette with mild cardiomegaly and stable to slightly worse mid to lower lung hazy opacities/layering effusions. EKG leads. Stable bones. CONCLUSION: 1. Interval tracheostomy tube placement and Dobbhoff tube removal. Stable right-sided central catheters. 2. Stable bilateral layering hazy opacities/effusions. Thank you for the opportunity to participate in this patient's care.
[2016-11-03] MEDS: IMODIUM A-D PO PRN (14:09)
[2016-11-03] MEDS: VITAMIN K *ORAL LIQUID FEEDTUBE SCH ×2 (16:00→21:28)
--- NOTE | 2016-11-03 16:15 | Progress Note ---
Assessment and Plan A/P: s/p tracheostomy and PEG tube placement (POD 1) 1) The PEG tube may be used for feeding. We will sign off at this point. Subjective Date of service: 11/03/16 Narrative: No acute events. The patient underwent a percutaneous tracheostomy and PEG tube insertion yesterday. Objective Vital Signs - 12hr 11/03/16 11/03/16 11/03/16 04:30 05:00 05:30 Temperature Pulse Rate 96 H 101 H 90 Respiratory 18 34 H 24 Rate Blood Pressure 96/66 106/76 83/56 O2 Sat by Pulse 99 100 99 Oximetry O2 Sat by Pulse Oximetry [ Anterior Bilateral Throughout] 11/03/16 11/03/16 11/03/16 06:00 06:30 06:53 Temperature Pulse Rate 101 H 91 H 95 H Respiratory 29 H 27 H Rate Blood Pressure 107/80 O2 Sat by Pulse 99 97 Oximetry O2 Sat by Pulse Oximetry [ Anterior Bilateral Throughout] 11/03/16 11/03/16 11/03/16 08:00 10:00 10:31 Temperature 99.3 F Pulse Rate 98 H 94 H Respiratory 32 H Rate Blood Pressure 88/60 88/60 O2 Sat by Pulse 99 Oximetry O2 Sat by Pulse Oximetry [ Anterior Bilateral Throughout] 11/03/16 11/03/16 11/03/16 13:50 14:15 14:30 Temperature 99.1 F Pulse Rate 100 H 93 H 93 H Respiratory 26 H Rate Blood Pressure 89/55 91/64 91/64 O2 Sat by Pulse 100 Oximetry O2 Sat by Pulse 100 Oximetry [ Anterior Bilateral Throughout] 11/03/16 11/03/16 11/03/16 14:45 15:03 15:15 Temperature Pulse Rate 100 H 99 H 100 H Respiratory Rate Blood Pressure 81/55 93/65 100/60 O2 Sat by Pulse Oximetry O2 Sat by Pulse Oximetry [ Anterior Bilateral Throughout] 11/03/16 11/03/16 11/03/16 15:30 15:45 16:02 Temperature Pulse Rate 102 H 104 H 99 H Respiratory Rate Blood Pressure 101/70 116/79 98/65 O2 Sat by Pulse Oximetry O2 Sat by Pulse Oximetry [ Anterior Bilateral Throughout] - Neck no masses (tracheostomy in place, no bleeding noted) - Labs 11/03/16 03:25 11/03/16 03:25 Diabetes panel 11/03/16 Range/Units 03:25 Sodium 136 L (137-145) mmol/L Potassium 4.9 (3.6-5.0) mmol/L Chloride 94.6 L (98-107) mmol/L Carbon Dioxide 21 L (22-30) mmol/L BUN 84 H (9-20) mg/dL Creatinine 3.2 H (0.8-1.5) mg/dL Glucose 116 H (75-100) mg/dL Calcium 7.0 L (8.4-10.2) mg/dL Calcium panel 11/03/16 Range/Units 03:25 Calcium 7.0 L (8.4-10.2) mg/dL Phosphorus 5.80 H (2.5-4.5) mg/dL Pituitary panel 11/03/16 Range/Units 03:25 Sodium 136 L (137-145) mmol/L Potassium 4.9 (3.6-5.0) mmol/L Chloride 94.6 L (98-107) mmol/L Carbon Dioxide 21 L (22-30) mmol/L BUN 84 H (9-20) mg/dL Creatinine 3.2 H (0.8-1.5) mg/dL Glucose 116 H (75-100) mg/dL Calcium 7.0 L (8.4-10.2) mg/dL Adrenal panel 11/03/16 Range/Units 03:25 Sodium 136 L (137-145) mmol/L Potassium 4.9 (3.6-5.0) mmol/L Chloride 94.6 L (98-107) mmol/L Carbon Dioxide 21 L (22-30) mmol/L BUN 84 H (9-20) mg/dL Creatinine 3.2 H (0.8-1.5) mg/dL Glucose 116 H (75-100) mg/dL Calcium 7.0 L (8.4-10.2) mg/dL
[2016-11-03] MEDS: HEPARIN IV PRN (17:49)
--- NOTE | 2016-11-03 23:49 | Consultation ---
History of Present Illness - Reason for Consult Consult date: 11/03/16 - History of Present Illness Patient seen/examined, labs reviewed, case d/w nephrology regarding the whole case. We are still tryingto establish some sort of dx for the family.even if this will not change the eventual out come. The [id number] still not readily ready. Past History Past Medical History: hypertension, other (Had shingles in November 27-) Past Surgical History: No surgical history Social history: , full code, other (Patienti s and lives with his ). denies: smoking, alcohol abuse, prescription drug abuse, IV drug use Family history: no significant family history Medications and Allergies Allergies Allergy/AdvReac Type Severity Reaction Status Date / Time No Known Allergies Allergy Unverified 10/13/16 09:41 Home Medications Medication Instructions Recorded Confirmed Last Taken Type Naproxen Sodium [Aleve TAB] 2 tab PO Q8H PRN 10/13/16 10/13/16 10/12/16 14:00 History Active Meds: Active Medications Acetaminophen (Tylenol) 1,000 mg OK Q4H PRN PRN Reason: Pain, Mild (1-3) Last Admin: 10/20/16 15:40 Dose: 1,000 mg Acetaminophen (Tylenol) 650 mg FEEDTUBE Q6H PRN PRN Reason: Pain, Mild (1-3) Last Admin: 10/24/16 10:56 Dose: 650 mg Alteplase, Recombinant (Cathflo) 4 mg IV ROD PRN PRN Reason: hemodialysis Last Admin: 11/02/16 09:37 Dose: 4 mg Lipase/Protease/Amylase (Pancreaze Dr 10,500 Unit) 1 each FEEDTUBE PRN PRN PRN Reason: For Clogged Feeding Tube Dextrose (D50w (25gm)) 25 ml IV PRN PRN PRN Reason: Hypoglycemia Last Admin: 10/18/16 07:20 Dose: 25 ml Diphenhydramine HCl (Benadryl) 50 mg IV Q6H PRN PRN Reason: Itching Last Admin: 10/24/16 10:57 Dose: 50 mg Famotidine (Pepcid) 20 mg PO Q24H EDWINA Last Admin: 11/03/16 09:46 Dose: 20 mg Haloperidol Lactate (Haldol) 5 mg IM Q6H PRN PRN Reason: Agitation Last Admin: 10/14/16 21:11 Dose: 5 mg Heparin Sodium (Porcine) (Heparin) 10,000 unit IV ROD PRN PRN Reason: for plasmapheresis- vascath Last Admin: 11/03/16 17:49 Dose: 10,000 unit Hydrocortisone Sodium Succinate (Solu-Cortef) 60 mg IV Q8HR EDWINA Last Admin: 11/03/16 21:29 Dose: 60 mg Hydrophilic Ointment (Vaseline Lip Therapy) 1 applic TP Q2H PRN PRN Reason: Dry Lips Propofol (Diprivan 10 Mg/Ml) 1,000 mg in 100 mls @ 1.827 mls/hr IV TITR EDWINA; 5 MCG/KG/MIN PRN Reason: Protocol Last Titration: 10/20/16 10:12 Dose: 0 mcg/kg/min, 0 mls/hr Fentanyl Citrate (Fentanyl Drip Premix) 2,000 mcg in 100 mls @ 3.045 mls/hr IV TITR EDWINA; 1 MCG/KG/HR PRN Reason: Protocol Sodium Chloride (Nacl 0.9%) 100 mls @ 999 mls/hr IV ROD PRN PRN Reason: Hypotension Cefazolin Sodium (Ancef/Sterile Water 2 Gm/20 Ml) 2 gm in 20 mls @ 80 mls/hr IV PREOP NR PRN Reason: Protocol Stop: 11/03/16 23:59 Insulin Aspart (Novolog) 0 units SUB-Q Q6HR EDWINA PRN Reason: Protocol Last Admin: 11/03/16 19:05 Dose: 3 units Labetalol HCl (Normodyne) 20 mg IV Q6H PRN PRN Reason: Hypertension Last Admin: 10/25/16 05:33 Dose: 20 mg Loperamide HCl (Imodium A-D) 2 mg PO Q2H PRN PRN Reason: Diarrhea Last Admin: 11/03/16 14:09 Dose: 2 mg Metoprolol Tartrate (Lopressor) 25 mg PO BID EDWINA Last Admin: 11/03/16 21:30 Dose: Not Given Multi-Ingred Cream/Lotion/Oil/Oint (Artificial Tears Ophth Oint) 1 applic OU Q4H PRN PRN Reason: Dry Eye(s) Ondansetron HCl (Zofran) 4 mg IV Q8H PRN PRN Reason: Nausea And Vomiting Phytonadione (Vitamin K *Oral Liquid*) 10 mg FEEDTUBE TID EDWINA Stop: 11/06/16 13:59 Last Admin: 11/03/16 21:28 Dose: 10 mg Simple Syrup (Simple Syrup) 15 ml FEEDTUBE PRN PRN PRN Reason: Hypoglycemia Simple Syrup (Simple Syrup) 30 ml FEEDTUBE PRN PRN PRN Reason: Hypoglycemia Sodium Bicarbonate (Sodium Bicarbonate) 325 mg FEEDTUBE PRN PRN PRN Reason: For Clogged Feeding Tube Last Admin: 11/02/16 11:08 Dose: 325 mg Sodium Chloride (Sodium Chloride Flush Syringe 10 Ml) 10 ml IV PRN PRN PRN Reason: LINE FLUSH Last Admin: 10/17/16 20:45 Dose: 10 ml Review of Systems Respiratory: other (on the vent) Exam - Constitutional Vitals: Temp Pulse Resp BP Pulse Ox 98.8 F 98 H 18 109/74 100 11/03/16 20:00 11/03/16 22:00 11/03/16 22:00 11/03/16 22:00 11/03/16 20:52 General appearance: Present: severe distress - EENT Eyes: Present: PERRL ENT: hearing intact, clear oral mucosa - Neck Neck: Present: supple, normal ROM - Cardiovascular Heart Sounds: Present: S1 & S2. Absent: rub, click - Extremities Extremities: pulses symmetrical, No edema Peripheral Pulses: within normal limits - Abdominal General gastrointestinal: Present: soft, non-tender, non-distended, normal bowel sounds Male genitourinary: Present: deferred - Rectal Rectal Exam: deferred - Integumentary Integumentary: Present: clear, warm, dry Results - Labs CBC & Chem 7: 11/03/16 03:25 11/03/16 03:25 Labs: Abnormal lab results 11/03/16 11/03/16 11/03/16 Range/Units 00:02 03:25 03:25 RBC 2.34 L (3.65-5.03) M/mm3 Hgb 7.0 L (11.8-15.2) gm/dl Hct 21.9 L (35.5-45.6) % RDW 17.6 H (13.2-15.2) % Plt Count 49 L (140-440) K/mm3 Seg Neuts % (Manual) 86.0 H (40.0-70.0) % Lymphocytes % (Manual) 4.0 L (13.4-35.0) % Lymphocytes # (Manual) 0.3 L (1.2-5.4) K/mm3 PT (12.2-14.9) Sec. INR (0.87-1.13) Sodium 136 L (137-145) mmol/L Chloride 94.6 L (98-107) mmol/L Carbon Dioxide 21 L (22-30) mmol/L BUN 84 H (9-20) mg/dL Creatinine 3.2 H (0.8-1.5) mg/dL Glucose 116 H (75-100) mg/dL POC Glucose 114 H (70-105) Calcium 7.0 L (8.4-10.2) mg/dL Phosphorus 5.80 H (2.5-4.5) mg/dL Crossmatch 11/03/16 11/03/16 Range/Units 03:25 13:02 RBC (3.65-5.03) M/mm3 Hgb (11.8-15.2) gm/dl Hct (35.5-45.6) % RDW (13.2-15.2) % Plt Count (140-440) K/mm3 Seg Neuts % (Manual) (40.0-70.0) % Lymphocytes % (Manual) (13.4-35.0) % Lymphocytes # (Manual) (1.2-5.4) K/mm3 PT 22.5 H (12.2-14.9) Sec. INR 1.98 H (0.87-1.13) Sodium (137-145) mmol/L Chloride (98-107) mmol/L Carbon Dioxide (22-30) mmol/L BUN (9-20) mg/dL Creatinine (0.8-1.5) mg/dL Glucose (75-100) mg/dL POC Glucose (70-105) Calcium (8.4-10.2) mg/dL Phosphorus (2.5-4.5) mg/dL Crossmatch See Detail Assessment and Plan - Patient Problems (1) Anemia Current Visit: Yes Status: Acute Qualifiers: Anemia type: unspecified type Iron deficiency anemia type: I Vitamin B12 deficiency anemia type: V Folate deficiency anemia type: F Bone marrow failure anemia type: B Hemolytic anemia type: H Other causes of anemia: O Chronic kidney disease stage: C Qualified Code(s): D64.9 - Anemia, unspecified Plan to address problem: post transfusion. remains stable. (2) Leucopenia Current Visit: Yes Status: Acute Qualifiers: Leukopenia type: unspecified Neutropenia type: N Qualified Code(s): D72.819 - Decreased white blood cell count, unspecified Plan to address problem: same as above. resolved. Same as above (3) Renal failure Current Visit: Yes Status: Acute Qualifiers: Renal failure chronicity: acute Acute renal failure type: unspecified Chronic kidney disease stage: C Qualified Code(s): N17.9 - Acute kidney failure, unspecified Plan to address problem: See w/up, and renal service. 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
[2016-11-04] MEDS: NOVOLOG SUB-Q SCH ×4 (00:41→18:31)
[2016-11-04 05:56] LABS: INR 1.74 (0.87-1.13)
--- NOTE | 2016-11-04 11:13 | Progress Note ---
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 - continue HD/UF per nephrology recs - follow I's and O's (no urine in do bag) - correct electrolytes prn - avoid nephrotoxins - per nephrology otherwise (3) Metabolic acidosis Current Visit: Yes Status: Acute Plan to address problem: - mixed etiology - Lactic Acidosis component resolved - sepsis may have been driving force for that - RAJESH component - continue HD/UF per nephrology prescription - complete Anti-infectives per ID recs (4) CHF (congestive heart failure) Current Visit: Yes Status: Acute Qualifiers: Congestive heart failure type: C Congestive heart failure chronicity: C Plan to address problem: - ECHO consistent with possible infiltrating disease - cardiology consulted - EF 30& - s/p volume resuscitation for sepsis - per cardiology otherwise - JONATHAN negative (5) Pancytopenia Current Visit: Yes Status: Acute Plan to address problem: - hematology on case - continuing plasmapheresis - may need bone marrow evaluation - follow platelet count (seems to be trending back down) - also continue vitamin K in short term for coagulopathy re: recent procedures (6) Acute encephalopathy Current Visit: Yes Status: Acute Plan to address problem: - CT brain negative - likely toxic-metabolic encephalopathy element also - MRI abnormal - neurology evaluation ongoing - following clinically (7) Hypoglycemia Current Visit: Yes Status: Acute Plan to address problem: - improved - suspect sepsis related element - will continue systemic steroids but taper - also continue enteral nutrition - glycemic control via SSI at this point (8) Sepsis syndrome Current Visit: Yes Status: Acute Plan to address problem: - s/p antibiotic course - ID on case - CRP and lactate much improved - JONATHAN negative - following clinically - c-diff assay negative - Anti-infectives per ID recs (de-escalating now) (9) Discharge planning issues Current Visit: Yes Status: Acute Plan to address problem: - he remains critically ill on life sustaining interventions including MVS and at risk for further deterioration including ...30' CCT Subjective Date of service: 11/04/16 Principal diagnosis: Sepsis Syndrome; MAHA; RAJESH; CHF; TTP Interval history: Seen and examined at bedside; 24 hour events reviewed; nursing and respiratory care staff consulted; no adverse overnight events reported to me; tolerating t- piece so far today; AMS is persistent; no gross bleeding; awaiting am labs Objective Vital Signs - 12hr 11/03/16 11/03/16 11/04/16 23:30 23:45 00:00 Temperature 97.8 F Pulse Rate 90 91 H 95 H Pulse Rate [ 98 H From Monitor] Respiratory 18 17 Rate Blood Pressure 105/70 116/85 113/85 O2 Sat by Pulse 100 99 Oximetry O2 Sat by Pulse Oximetry [ Assessment] 11/04/16 11/04/16 11/04/16 00:30 00:50 01:00 Temperature Pulse Rate 94 H 92 H Pulse Rate [ From Monitor] Respiratory 20 20 Rate Blood Pressure 116/85 116/83 O2 Sat by Pulse Oximetry O2 Sat by Pulse 100 Oximetry [ Assessment] 11/04/16 11/04/16 11/04/16 01:30 02:00 02:30 Temperature Pulse Rate 93 H 93 H 95 H Pulse Rate [ From Monitor] Respiratory 19 20 22 Rate Blood Pressure 116/80 117/83 119/85 O2 Sat by Pulse 100 Oximetry O2 Sat by Pulse Oximetry [ Assessment] 11/04/16 11/04/16 11/04/16 03:00 03:30 04:00 Temperature 97.8 F Pulse Rate 95 H 94 H 89 Pulse Rate [ 97 H From Monitor] Respiratory 18 19 18 Rate Blood Pressure 120/85 113/79 109/75 O2 Sat by Pulse 100 Oximetry O2 Sat by Pulse Oximetry [ Assessment] 11/04/16 11/04/16 11/04/16 04:30 04:45 05:00 Temperature Pulse Rate 97 H 92 H 93 H Pulse Rate [ From Monitor] Respiratory 17 22 Rate Blood Pressure 120/92 101/71 101/71 O2 Sat by Pulse 100 93 Oximetry O2 Sat by Pulse Oximetry [ Assessment] 11/04/16 11/04/16 11/04/16 05:30 06:00 08:00 Temperature 98.6 F Pulse Rate 90 90 Pulse Rate [ From Monitor] Respiratory 18 18 Rate Blood Pressure 100/71 101/70 O2 Sat by Pulse 99 Oximetry O2 Sat by Pulse Oximetry [ Assessment] 11/04/16 11/04/16 08:53 08:59 Temperature Pulse Rate 93 H Pulse Rate [ From Monitor] Respiratory Rate Blood Pressure 100/70 O2 Sat by Pulse 100 Oximetry O2 Sat by Pulse 100 Oximetry [ Assessment] Constitutional: no acute distress, other (lethargic to encephalopathic) Eyes: non-icteric ENT: oropharynx moist Neck: supple, no lymphadenopathy Effort: mildly labored Ascultation: Bilateral: diminished breath sounds, rales Cardiovascular: irregular rhythm Gastrointestinal: normoactive bowel sounds, soft, non-tender, non-distended Integumentary: normal Extremities: no cyanosis, pulses normal, no ischemia or petechiae, edema Neurologic: non-focal exam (grossly), pupils equal and round, unable to assess Psychiatric: other (unable to assess) CBC and BMP: 11/05/16 05:40 11/05/16 06:00 ABG, PT/INR, D-dimer: ABG POC ABG pH 7.410 (7.35-7.45) 10/28/16 12:51 POC ABG pCO2 37.8 (35-45) 10/28/16 12:51 POC ABG pO2 93 (80-105) 10/28/16 12:51 POC ABG HCO3 24.0 10/28/16 12:51 POC ABG Total CO2 25 10/28/16 12:51 POC ABG O2 Sat 97 10/28/16 12:51 PT/INR, D-dimer PT 20.3 Sec. (12.2-14.9) H 11/04/16 05:40 INR 1.74 (0.87-1.13) H 11/04/16 05:40 Abnormal lab findings: Abnormal Labs 10/13/16 10/13/16 10/13/16 14:50 21:40 22:05 WBC RBC Hgb Hct MCV MCHC RDW Plt Count Seg Neuts % (Manual) Lymphocytes % (Manual) Nucleated RBC % Seg Neutrophils # Man Lymphocytes # (Manual) Haptoglobin PT INR Fibrinogen Lupus Anticoagulant LA PTT Baseline POC ABG pH POC ABG pCO2 POC ABG pO2 Sodium Potassium Chloride Carbon Dioxide BUN Creatinine Glucose POC Glucose 52 L 43 L Lactic Acid Uric Acid Calcium Phosphorus Iron TIBC Erythropoietin Ferritin Total Bilirubin Direct Bilirubin AST ALT Alkaline Phosphatase Lactate Dehydrogenase C-Reactive Protein Serum Total Protein 5.6 L Total Protein Albumin 2.2 L Jxbum-9-Xjturpwem 0.5 H Abnorm Protein Band 1 1.4 H PEP Interpretation see below H Crossmatch 10/13/16 10/14/16 10/14/16 23:18 03:00 03:00 WBC RBC Hgb Hct MCV MCHC RDW Plt Count Seg Neuts % (Manual) Lymphocytes % (Manual) Nucleated RBC % Seg Neutrophils # Man Lymphocytes # (Manual) Haptoglobin PT INR Fibrinogen Lupus Anticoagulant see below H LA PTT Baseline 55 H POC ABG pH POC ABG pCO2 POC ABG pO2 Sodium Potassium Chloride Carbon Dioxide BUN Creatinine Glucose POC Glucose 113 H Lactic Acid Uric Acid Calcium Phosphorus Iron TIBC Erythropoietin Ferritin Total Bilirubin Direct Bilirubin AST ALT Alkaline Phosphatase Lactate Dehydrogenase 406 H C-Reactive Protein Serum Total Protein Total Protein Albumin Onijv-0-Oomyzghic Abnorm Protein Band 1 PEP Interpretation Crossmatch 10/14/16 10/14/16 10/14/16 03:00 03:00 04:34 WBC 1.3 L* RBC 2.33 L Hgb 7.3 L Hct 21.7 L MCV MCHC RDW 19.8 H Plt Count 99 L Seg Neuts % (Manual) Lymphocytes % (Manual) 3.0 L Nucleated RBC % Seg Neutrophils # Man 0.9 L Lymphocytes # (Manual) 0.0 L Haptoglobin PT INR Fibrinogen Lupus Anticoagulant LA PTT Baseline POC ABG pH POC ABG pCO2 POC ABG pO2 Sodium Potassium Chloride Carbon Dioxide 18 L BUN 73 H Creatinine 9.8 H Glucose 59 L POC Glucose Lactic Acid Uric Acid 8.0 H Calcium 8.2 L Phosphorus 6.60 H Iron 13 L TIBC 160 L Erythropoietin Ferritin Total Bilirubin Direct Bilirubin AST ALT Alkaline Phosphatase Lactate Dehydrogenase C-Reactive Protein Serum Total Protein Total Protein Albumin Xyuby-5-Acxdfaiyd Abnorm Protein Band 1 PEP Interpretation Crossmatch 10/14/16 10/14/16 10/14/16 05:27 06:29 07:34 WBC RBC Hgb Hct MCV MCHC RDW Plt Count Seg Neuts % (Manual) Lymphocytes % (Manual) Nucleated RBC % Seg Neutrophils # Man Lymphocytes # (Manual) Haptoglobin PT INR Fibrinogen Lupus Anticoagulant LA PTT Baseline POC ABG pH POC ABG pCO2 POC ABG pO2 Sodium Potassium Chloride Carbon Dioxide BUN Creatinine Glucose POC Glucose < 40 L 63 L < 40 L Lactic Acid Uric Acid Calcium Phosphorus Iron TIBC Erythropoietin Ferritin Total Bilirubin Direct Bilirubin AST ALT Alkaline Phosphatase Lactate Dehydrogenase C-Reactive Protein Serum Total Protein Total Protein Albumin Jqsew-0-Xevrnzmxy Abnorm Protein Band 1 PEP Interpretation Crossmatch 10/14/16 10/14/16 10/14/16 09:58 09:58 09:58 WBC RBC Hgb Hct MCV MCHC RDW Plt Count Seg Neuts % (Manual) Lymphocytes % (Manual) Nucleated RBC % Seg Neutrophils # Man Lymphocytes # (Manual) Haptoglobin 218 H PT INR Fibrinogen 557 H Lupus Anticoagulant LA PTT Baseline POC ABG pH POC ABG pCO2 POC ABG pO2 Sodium Potassium Chloride Carbon Dioxide BUN Creatinine Glucose POC Glucose Lactic Acid Uric Acid Calcium Phosphorus Iron TIBC Erythropoietin Ferritin Total Bilirubin 1.30 H Direct Bilirubin 1.1 H AST ALT Alkaline Phosphatase Lactate Dehydrogenase C-Reactive Protein Serum Total Protein Total Protein Albumin Vlrpb-2-Vnfvfctyl Abnorm Protein Band 1 PEP Interpretation Crossmatch 10/14/16 10/14/16 10/14/16 10:57 11:15 12:52 WBC RBC Hgb Hct MCV MCHC RDW Plt Count Seg Neuts % (Manual) Lymphocytes % (Manual) Nucleated RBC % Seg Neutrophils # Man Lymphocytes # (Manual) Haptoglobin PT INR Fibrinogen Lupus Anticoagulant LA PTT Baseline POC ABG pH POC ABG pCO2 POC ABG pO2 Sodium Potassium Chloride Carbon Dioxide BUN Creatinine Glucose POC Glucose < 40 L < 40 L Lactic Acid 9.60 H* Uric Acid Calcium Phosphorus Iron TIBC Erythropoietin Ferritin Total Bilirubin Direct Bilirubin AST ALT Alkaline Phosphatase Lactate Dehydrogenase C-Reactive Protein Serum Total Protein Total Protein Albumin Cnhjh-2-Tundrpcfy Abnorm Protein Band 1 PEP Interpretation Crossmatch 10/14/16 10/14/16 10/14/16 12:52 13:17 14:12 WBC RBC Hgb Hct MCV MCHC RDW Plt Count Seg Neuts % (Manual) Lymphocytes % (Manual) Nucleated RBC % Seg Neutrophils # Man Lymphocytes # (Manual) Haptoglobin PT INR Fibrinogen Lupus Anticoagulant LA PTT Baseline POC ABG pH POC ABG pCO2 POC ABG pO2 Sodium Potassium Chloride Carbon Dioxide BUN Creatinine Glucose POC Glucose < 40 L < 40 L Lactic Acid Uric Acid Calcium Phosphorus Iron TIBC Erythropoietin Ferritin Total Bilirubin Direct Bilirubin AST ALT Alkaline Phosphatase Lactate Dehydrogenase C-Reactive Protein 40.40 H Serum Total Protein Total Protein Albumin Apqto-7-Vugmbehmn Abnorm Protein Band 1 PEP Interpretation Crossmatch 10/14/16 10/14/16 10/14/16 15:02 15:33 15:33 WBC RBC Hgb Hct MCV MCHC RDW Plt Count Seg Neuts % (Manual) Lymphocytes % (Manual) Nucleated RBC % Seg Neutrophils # Man Lymphocytes # (Manual) Haptoglobin PT INR Fibrinogen Lupus Anticoagulant LA PTT Baseline POC ABG pH POC ABG pCO2 POC ABG pO2 Sodium Potassium Chloride Carbon Dioxide BUN Creatinine Glucose 19 L* POC Glucose < 40 L Lactic Acid 11.60 H* Uric Acid Calcium Phosphorus Iron TIBC Erythropoietin Ferritin Total Bilirubin Direct Bilirubin AST ALT Alkaline Phosphatase Lactate Dehydrogenase C-Reactive Protein Serum Total Protein Total Protein Albumin Wyoli-7-Gsuhqydkt Abnorm Protein Band 1 PEP Interpretation Crossmatch 10/14/16 10/14/16 10/14/16 17:14 18:03 21:25 WBC RBC Hgb Hct MCV MCHC RDW Plt Count Seg Neuts % (Manual) Lymphocytes % (Manual) Nucleated RBC % Seg Neutrophils # Man Lymphocytes # (Manual) Haptoglobin PT 28.9 H INR 2.71 H Fibrinogen Lupus Anticoagulant LA PTT Baseline POC ABG pH POC ABG pCO2 POC ABG pO2 Sodium Potassium Chloride Carbon Dioxide BUN Creatinine Glucose POC Glucose < 40 L 57 L Lactic Acid Uric Acid Calcium Phosphorus Iron TIBC Erythropoietin Ferritin Total Bilirubin Direct Bilirubin AST ALT Alkaline Phosphatase Lactate Dehydrogenase C-Reactive Protein Serum Total Protein Total Protein Albumin Bdxbf-9-Wcstrzckl Abnorm Protein Band 1 PEP Interpretation Crossmatch 10/15/16 10/15/16 10/15/16 05:32 05:35 05:35 WBC RBC 2.62 L Hgb 8.1 L Hct 25.8 L MCV 98 H D MCHC 31 L RDW 21.2 H Plt Count 61 L Seg Neuts % (Manual) 27.0 L Lymphocytes % (Manual) 10.0 L Nucleated RBC % 2.0 H Seg Neutrophils # Man Lymphocytes # (Manual) 0.8 L Haptoglobin PT INR Fibrinogen Lupus Anticoagulant LA PTT Baseline POC ABG pH POC ABG pCO2 POC ABG pO2 Sodium Potassium Chloride Carbon Dioxide BUN Creatinine Glucose POC Glucose < 40 L Lactic Acid Uric Acid Calcium Phosphorus Iron TIBC Erythropoietin Ferritin Total Bilirubin Direct Bilirubin AST ALT Alkaline Phosphatase Lactate Dehydrogenase 3871 H C-Reactive Protein Serum Total Protein Total Protein Albumin Utoyx-6-Qxgukaudc Abnorm Protein Band 1 PEP Interpretation Crossmatch 10/15/16 10/15/16 10/15/16 05:35 05:35 05:35 WBC RBC Hgb Hct MCV MCHC RDW Plt Count Seg Neuts % (Manual) Lymphocytes % (Manual) Nucleated RBC % Seg Neutrophils # Man Lymphocytes # (Manual) Haptoglobin PT INR Fibrinogen Lupus Anticoagulant LA PTT Baseline POC ABG pH POC ABG pCO2 POC ABG pO2 Sodium 136 L Potassium 5.3 H D Chloride 91.4 L Carbon Dioxide 6 L* D BUN 57 H Creatinine 7.1 H Glucose 11 L* POC Glucose Lactic Acid 13.60 H* Uric Acid Calcium 7.7 L Phosphorus 10.10 H D Iron TIBC 166 L Erythropoietin Ferritin 9562.0 H Total Bilirubin Direct Bilirubin AST ALT Alkaline Phosphatase Lactate Dehydrogenase C-Reactive Protein Serum Total Protein Total Protein Albumin Mqqkn-8-Bsmakrhky Abnorm Protein Band 1 PEP Interpretation Crossmatch 10/15/16 10/15/16 10/15/16 05:51 06:22 06:52 WBC RBC Hgb Hct MCV MCHC RDW Plt Count Seg Neuts % (Manual) Lymphocytes % (Manual) Nucleated RBC % Seg Neutrophils # Man Lymphocytes # (Manual) Haptoglobin PT INR Fibrinogen Lupus Anticoagulant LA PTT Baseline POC ABG pH 7.189 L POC ABG pCO2 28.9 L POC ABG pO2 Sodium Potassium Chloride Carbon Dioxide BUN Creatinine Glucose POC Glucose 59 L 111 H Lactic Acid Uric Acid Calcium Phosphorus Iron TIBC Erythropoietin Ferritin Total Bilirubin Direct Bilirubin AST ALT Alkaline Phosphatase Lactate Dehydrogenase C-Reactive Protein Serum Total Protein Total Protein Albumin Rjhjq-6-Rmrayjzvu Abnorm Protein Band 1 PEP Interpretation Crossmatch 10/15/16 10/15/16 10/15/16 08:00 09:57 11:42 WBC RBC Hgb Hct MCV MCHC RDW Plt Count Seg Neuts % (Manual) Lymphocytes % (Manual) Nucleated RBC % Seg Neutrophils # Man Lymphocytes # (Manual) Haptoglobin PT INR Fibrinogen Lupus Anticoagulant LA PTT Baseline POC ABG pH POC ABG pCO2 POC ABG pO2 Sodium Potassium Chloride Carbon Dioxide BUN Creatinine Glucose POC Glucose 63 L 143 H 203 H Lactic Acid Uric Acid Calcium Phosphorus Iron TIBC Erythropoietin Ferritin Total Bilirubin Direct Bilirubin AST ALT Alkaline Phosphatase Lactate Dehydrogenase C-Reactive Protein Serum Total Protein Total Protein Albumin Cqizv-4-Etjyqikcb Abnorm Protein Band 1 PEP Interpretation Crossmatch 10/15/16 10/15/16 10/15/16 12:00 12:00 13:00 WBC RBC Hgb Hct MCV MCHC RDW Plt Count Seg Neuts % (Manual) Lymphocytes % (Manual) Nucleated RBC % Seg Neutrophils # Man Lymphocytes # (Manual) Haptoglobin <15 L PT INR Fibrinogen Lupus Anticoagulant LA PTT Baseline POC ABG pH POC ABG pCO2 POC ABG pO2 Sodium Potassium Chloride Carbon Dioxide BUN Creatinine Glucose POC Glucose 136 H Lactic Acid 16.30 H* Uric Acid Calcium Phosphorus Iron TIBC Erythropoietin Ferritin Total Bilirubin Direct Bilirubin AST ALT Alkaline Phosphatase Lactate Dehydrogenase C-Reactive Protein Serum Total Protein Total Protein Albumin Ffuao-9-Zrtoofckg Abnorm Protein Band 1 PEP Interpretation Crossmatch 10/15/16 10/15/16 10/15/16 14:06 15:15 16:23 WBC RBC Hgb Hct MCV MCHC RDW Plt Count Seg Neuts % (Manual) Lymphocytes % (Manual) Nucleated RBC % Seg Neutrophils # Man Lymphocytes # (Manual) Haptoglobin PT INR Fibrinogen Lupus Anticoagulant LA PTT Baseline POC ABG pH POC ABG pCO2 POC ABG pO2 Sodium Potassium Chloride Carbon Dioxide BUN Creatinine Glucose POC Glucose 132 H 64 L Lactic Acid 20.40 H* Uric Acid Calcium Phosphorus Iron TIBC Erythropoietin Ferritin Total Bilirubin Direct Bilirubin AST ALT Alkaline Phosphatase Lactate Dehydrogenase C-Reactive Protein Serum Total Protein Total Protein Albumin Sphsy-3-Sogxlwmqs Abnorm Protein Band 1 PEP Interpretation Crossmatch 10/15/16 10/15/16 10/15/16 16:40 17:00 17:10 WBC RBC Hgb Hct MCV MCHC RDW Plt Count Seg Neuts % (Manual) Lymphocytes % (Manual) Nucleated RBC % Seg Neutrophils # Man Lymphocytes # (Manual) Haptoglobin PT INR Fibrinogen Lupus Anticoagulant LA PTT Baseline POC ABG pH 7.323 L POC ABG pCO2 25.8 L POC ABG pO2 135 H Sodium Potassium Chloride Carbon Dioxide BUN Creatinine Glucose POC Glucose 159 H Lactic Acid 20.20 H* Uric Acid Calcium Phosphorus Iron TIBC Erythropoietin Ferritin Total Bilirubin Direct Bilirubin AST ALT Alkaline Phosphatase Lactate Dehydrogenase C-Reactive Protein Serum Total Protein Total Protein Albumin Otgxj-8-Cpomxlacp Abnorm Protein Band 1 PEP Interpretation Crossmatch 10/15/16 10/15/16 10/15/16 17:46 17:53 18:45 WBC RBC Hgb Hct MCV MCHC RDW Plt Count Seg Neuts % (Manual) Lymphocytes % (Manual) Nucleated RBC % Seg Neutrophils # Man Lymphocytes # (Manual) Haptoglobin PT INR Fibrinogen Lupus Anticoagulant LA PTT Baseline POC ABG pH POC ABG pCO2 POC ABG pO2 Sodium Potassium Chloride Carbon Dioxide BUN Creatinine Glucose POC Glucose 126 H 143 H Lactic Acid 21.40 H* Uric Acid Calcium Phosphorus Iron TIBC Erythropoietin Ferritin Total Bilirubin Direct Bilirubin AST ALT Alkaline Phosphatase Lactate Dehydrogenase C-Reactive Protein Serum Total Protein Total Protein Albumin Gibdr-1-Lblsnhwxp Abnorm Protein Band 1 PEP Interpretation Crossmatch 10/15/16 10/15/16 10/16/16 20:03 22:59 00:06 WBC RBC Hgb Hct MCV MCHC RDW Plt Count Seg Neuts % (Manual) Lymphocytes % (Manual) Nucleated RBC % Seg Neutrophils # Man Lymphocytes # (Manual) Haptoglobin PT INR Fibrinogen Lupus Anticoagulant LA PTT Baseline POC ABG pH POC ABG pCO2 POC ABG pO2 Sodium Potassium Chloride Carbon Dioxide BUN Creatinine Glucose POC Glucose 66 L 53 L 126 H Lactic Acid Uric Acid Calcium Phosphorus Iron TIBC Erythropoietin Ferritin Total Bilirubin Direct Bilirubin AST ALT Alkaline Phosphatase Lactate Dehydrogenase C-Reactive Protein Serum Total Protein Total Protein Albumin Kjjdc-8-Qkljhlyig Abnorm Protein Band 1 PEP Interpretation Crossmatch 10/16/16 10/16/16 10/16/16 01:03 03:55 04:00 WBC RBC Hgb Hct MCV MCHC RDW Plt Count Seg Neuts % (Manual) Lymphocytes % (Manual) Nucleated RBC % Seg Neutrophils # Man Lymphocytes # (Manual) Haptoglobin PT INR Fibrinogen Lupus Anticoagulant LA PTT Baseline POC ABG pH POC ABG pCO2 POC ABG pO2 Sodium Potassium Chloride Carbon Dioxide BUN Creatinine Glucose POC Glucose 107 H 260 H Lactic Acid 18.00 H* Uric Acid Calcium Phosphorus Iron TIBC Erythropoietin Ferritin Total Bilirubin Direct Bilirubin AST ALT Alkaline Phosphatase Lactate Dehydrogenase C-Reactive Protein Serum Total Protein Total Protein Albumin Emxiu-2-Gtxlpqgtw Abnorm Protein Band 1 PEP Interpretation Crossmatch 10/16/16 10/16/16 10/16/16 04:03 07:58 08:34 WBC RBC Hgb Hct MCV MCHC RDW Plt Count Seg Neuts % (Manual) Lymphocytes % (Manual) Nucleated RBC % Seg Neutrophils # Man Lymphocytes # (Manual) Haptoglobin PT INR Fibrinogen Lupus Anticoagulant LA PTT Baseline POC ABG pH 7.527 H POC ABG pCO2 32.9 L POC ABG pO2 119 H Sodium Potassium Chloride Carbon Dioxide BUN Creatinine Glucose POC Glucose 120 H 66 L Lactic Acid Uric Acid Calcium Phosphorus Iron TIBC Erythropoietin Ferritin Total Bilirubin Direct Bilirubin AST ALT Alkaline Phosphatase Lactate Dehydrogenase C-Reactive Protein Serum Total Protein Total Protein Albumin Mmwpo-2-Tpcbedvky Abnorm Protein Band 1 PEP Interpretation Crossmatch 10/16/16 10/16/16 10/16/16 09:13 10:06 10:57 WBC RBC Hgb Hct MCV MCHC RDW Plt Count Seg Neuts % (Manual) Lymphocytes % (Manual) Nucleated RBC % Seg Neutrophils # Man Lymphocytes # (Manual) Haptoglobin PT INR Fibrinogen Lupus Anticoagulant LA PTT Baseline POC ABG pH POC ABG pCO2 POC ABG pO2 Sodium Potassium Chloride Carbon Dioxide BUN Creatinine Glucose POC Glucose 147 H 137 H 140 H Lactic Acid Uric Acid Calcium Phosphorus Iron TIBC Erythropoietin Ferritin Total Bilirubin Direct Bilirubin AST ALT Alkaline Phosphatase Lactate Dehydrogenase C-Reactive Protein Serum Total Protein Total Protein Albumin Uedyk-8-Mttwftwhg Abnorm Protein Band 1 PEP Interpretation Crossmatch 10/16/16 10/16/16 10/16/16 11:15 11:15 11:15 WBC 25.8 H RBC 2.30 L Hgb 7.0 L Hct 22.3 L MCV 97 H MCHC 31 L RDW 21.2 H Plt Count 42 L Seg Neuts % (Manual) Lymphocytes % (Manual) 3.0 L Nucleated RBC % 2.0 H Seg Neutrophils # Man 11.1 H Lymphocytes # (Manual) 0.8 L Haptoglobin PT INR Fibrinogen Lupus Anticoagulant LA PTT Baseline POC ABG pH POC ABG pCO2 POC ABG pO2 Sodium Potassium Chloride 81.7 L Carbon Dioxide 13 L D BUN 61 H Creatinine 6.2 H Glucose 171 H POC Glucose Lactic Acid 22.70 H* Uric Acid Calcium 7.1 L Phosphorus 9.10 H Iron TIBC Erythropoietin Ferritin Total Bilirubin Direct Bilirubin AST ALT Alkaline Phosphatase Lactate Dehydrogenase C-Reactive Protein Serum Total Protein Total Protein Albumin Vrgnw-5-Tjcmcpoyz Abnorm Protein Band 1 PEP Interpretation Crossmatch 10/16/16 10/16/16 10/16/16 15:10 15:50 18:11 WBC RBC Hgb Hct MCV MCHC RDW Plt Count Seg Neuts % (Manual) Lymphocytes % (Manual) Nucleated RBC % Seg Neutrophils # Man Lymphocytes # (Manual) Haptoglobin PT INR Fibrinogen Lupus Anticoagulant LA PTT Baseline POC ABG pH POC ABG pCO2 POC ABG pO2 Sodium Potassium Chloride Carbon Dioxide BUN Creatinine Glucose POC Glucose 47 L 164 H 58 L Lactic Acid Uric Acid Calcium Phosphorus Iron TIBC Erythropoietin Ferritin Total Bilirubin Direct Bilirubin AST ALT Alkaline Phosphatase Lactate Dehydrogenase C-Reactive Protein Serum Total Protein Total Protein Albumin Bjqdq-7-Anjhzawcd Abnorm Protein Band 1 PEP Interpretation Crossmatch 10/16/16 10/16/16 10/17/16 18:26 21:06 00:06 WBC RBC Hgb Hct MCV MCHC RDW Plt Count Seg Neuts % (Manual) Lymphocytes % (Manual) Nucleated RBC % Seg Neutrophils # Man Lymphocytes # (Manual) Haptoglobin PT INR Fibrinogen Lupus Anticoagulant LA PTT Baseline POC ABG pH POC ABG pCO2 POC ABG pO2 489 H Sodium Potassium Chloride Carbon Dioxide BUN Creatinine Glucose POC Glucose 52 L 120 H Lactic Acid Uric Acid Calcium Phosphorus Iron TIBC Erythropoietin Ferritin Total Bilirubin Direct Bilirubin AST ALT Alkaline Phosphatase Lactate Dehydrogenase C-Reactive Protein Serum Total Protein Total Protein Albumin Cdfrm-7-Zwzvbjtsx Abnorm Protein Band 1 PEP Interpretation Crossmatch 10/17/16 10/17/16 10/17/16 04:55 04:55 05:04 WBC 25.5 H RBC 2.23 L Hgb 6.6 L Hct 21.2 L MCV 95 H MCHC 31 L RDW 20.5 H Plt Count 35 L Seg Neuts % (Manual) 79.0 H Lymphocytes % (Manual) 0 L Nucleated RBC % Seg Neutrophils # Man 20.1 H Lymphocytes # (Manual) 0.0 L Haptoglobin PT INR Fibrinogen Lupus Anticoagulant LA PTT Baseline POC ABG pH POC ABG pCO2 27.2 L POC ABG pO2 162 H Sodium Potassium Chloride 91.5 L Carbon Dioxide 16 L BUN 45 H Creatinine 4.5 H Glucose 103 H POC Glucose Lactic Acid Uric Acid Calcium 6.9 L Phosphorus 5.80 H D Iron TIBC Erythropoietin Ferritin Total Bilirubin Direct Bilirubin AST ALT Alkaline Phosphatase Lactate Dehydrogenase C-Reactive Protein Serum Total Protein Total Protein Albumin Fbkkd-7-Gnohrmbzz Abnorm Protein Band 1 PEP Interpretation Crossmatch 10/17/16 10/17/16 10/17/16 07:59 09:04 10:04 WBC RBC Hgb Hct MCV MCHC RDW Plt Count Seg Neuts % (Manual) Lymphocytes % (Manual) Nucleated RBC % Seg Neutrophils # Man Lymphocytes # (Manual) Haptoglobin PT INR Fibrinogen Lupus Anticoagulant LA PTT Baseline POC ABG pH POC ABG pCO2 POC ABG pO2 Sodium Potassium Chloride Carbon Dioxide BUN Creatinine Glucose POC Glucose 65 L 118 H Lactic Acid Uric Acid Calcium Phosphorus Iron TIBC Erythropoietin Ferritin Total Bilirubin Direct Bilirubin AST ALT Alkaline Phosphatase Lactate Dehydrogenase C-Reactive Protein Serum Total Protein Total Protein Albumin Bcaxg-1-Crwukroqi Abnorm Protein Band 1 PEP Interpretation Crossmatch See Detail 10/17/16 10/17/16 10/17/16 11:52 13:08 15:42 WBC RBC Hgb Hct MCV MCHC RDW Plt Count Seg Neuts % (Manual) Lymphocytes % (Manual) Nucleated RBC % Seg Neutrophils # Man Lymphocytes # (Manual) Haptoglobin PT INR Fibrinogen Lupus Anticoagulant LA PTT Baseline POC ABG pH POC ABG pCO2 POC ABG pO2 Sodium Potassium Chloride Carbon Dioxide BUN Creatinine Glucose POC Glucose 125 H 106 H 55 L Lactic Acid Uric Acid Calcium Phosphorus Iron TIBC Erythropoietin Ferritin Total Bilirubin Direct Bilirubin AST ALT Alkaline Phosphatase Lactate Dehydrogenase C-Reactive Protein Serum Total Protein Total Protein Albumin Ocvkx-6-Ftphjdlnt Abnorm Protein Band 1 PEP Interpretation Crossmatch 10/17/16 10/17/16 10/17/16 17:39 20:37 21:02 WBC RBC Hgb Hct MCV MCHC RDW Plt Count Seg Neuts % (Manual) Lymphocytes % (Manual) Nucleated RBC % Seg Neutrophils # Man Lymphocytes # (Manual) Haptoglobin PT INR Fibrinogen Lupus Anticoagulant LA PTT Baseline POC ABG pH POC ABG pCO2 28.2 L POC ABG pO2 Sodium Potassium Chloride Carbon Dioxide BUN Creatinine Glucose POC Glucose < 40 L 106 H Lactic Acid Uric Acid Calcium Phosphorus Iron TIBC Erythropoietin Ferritin Total Bilirubin Direct Bilirubin AST ALT Alkaline Phosphatase Lactate Dehydrogenase C-Reactive Protein Serum Total Protein Total Protein Albumin Ldnip-7-Pozhufqmv Abnorm Protein Band 1 PEP Interpretation Crossmatch 10/17/16 10/17/16 10/18/16 22:18 23:14 00:28 WBC RBC Hgb Hct MCV MCHC RDW Plt Count Seg Neuts % (Manual) Lymphocytes % (Manual) Nucleated RBC % Seg Neutrophils # Man Lymphocytes # (Manual) Haptoglobin PT INR Fibrinogen Lupus Anticoagulant LA PTT Baseline POC ABG pH POC ABG pCO2 POC ABG pO2 Sodium Potassium Chloride Carbon Dioxide BUN Creatinine Glucose POC Glucose 111 H 118 H 112 H Lactic Acid Uric Acid Calcium Phosphorus Iron TIBC Erythropoietin Ferritin Total Bilirubin Direct Bilirubin AST ALT Alkaline Phosphatase Lactate Dehydrogenase C-Reactive Protein Serum Total Protein Total Protein Albumin Yegyt-8-Vloitizef Abnorm Protein Band 1 PEP Interpretation Crossmatch 10/18/16 10/18/16 10/18/16 05:00 05:00 05:15 WBC 27.3 H RBC 2.75 L Hgb 7.9 L Hct 25.3 L MCV MCHC 31 L RDW 20.7 H Plt Count 31 L Seg Neuts % (Manual) 87.0 H Lymphocytes % (Manual) 1.0 L Nucleated RBC % 1.0 H Seg Neutrophils # Man 23.8 H Lymphocytes # (Manual) 0.3 L Haptoglobin PT INR Fibrinogen Lupus Anticoagulant LA PTT Baseline POC ABG pH 7.466 H POC ABG pCO2 25.1 L POC ABG pO2 Sodium Potassium Chloride 88.7 L Carbon Dioxide 18 L BUN 66 H Creatinine 4.7 H Glucose POC Glucose Lactic Acid Uric Acid Calcium 6.1 L Phosphorus 7.30 H D Iron TIBC Erythropoietin Ferritin Total Bilirubin Direct Bilirubin AST ALT Alkaline Phosphatase Lactate Dehydrogenase C-Reactive Protein Serum Total Protein Total Protein Albumin Cehis-3-Dabnfjavx Abnorm Protein Band 1 PEP Interpretation Crossmatch 10/18/16 10/18/16 10/18/16 07:15 07:44 09:07 WBC RBC Hgb Hct MCV MCHC RDW Plt Count Seg Neuts % (Manual) Lymphocytes % (Manual) Nucleated RBC % Seg Neutrophils # Man Lymphocytes # (Manual) Haptoglobin PT INR Fibrinogen Lupus Anticoagulant LA PTT Baseline POC ABG pH POC ABG pCO2 POC ABG pO2 Sodium Potassium Chloride Carbon Dioxide BUN Creatinine Glucose POC Glucose 64 L 156 H 117 H Lactic Acid Uric Acid Calcium Phosphorus Iron TIBC Erythropoietin Ferritin Total Bilirubin Direct Bilirubin AST ALT Alkaline Phosphatase Lactate Dehydrogenase C-Reactive Protein Serum Total Protein Total Protein Albumin Dvacn-5-Cslruwwah Abnorm Protein Band 1 PEP Interpretation Crossmatch 10/18/16 10/18/16 10/18/16 09:15 14:00 18:21 WBC RBC Hgb Hct MCV MCHC RDW Plt Count Seg Neuts % (Manual) Lymphocytes % (Manual) Nucleated RBC % Seg Neutrophils # Man Lymphocytes # (Manual) Haptoglobin PT INR Fibrinogen Lupus Anticoagulant LA PTT Baseline POC ABG pH POC ABG pCO2 POC ABG pO2 Sodium Potassium Chloride Carbon Dioxide BUN Creatinine Glucose POC Glucose 106 H 112 H Lactic Acid 14.30 H* Uric Acid Calcium Phosphorus Iron TIBC Erythropoietin Ferritin Total Bilirubin Direct Bilirubin AST ALT Alkaline Phosphatase Lactate Dehydrogenase C-Reactive Protein Serum Total Protein Total Protein Albumin Pjoya-5-Khwuqymfx Abnorm Protein Band 1 PEP Interpretation Crossmatch 10/18/16 10/18/16 10/18/16 19:58 20:55 22:11 WBC RBC Hgb Hct MCV MCHC RDW Plt Count Seg Neuts % (Manual) Lymphocytes % (Manual) Nucleated RBC % Seg Neutrophils # Man Lymphocytes # (Manual) Haptoglobin PT INR Fibrinogen Lupus Anticoagulant LA PTT Baseline POC ABG pH POC ABG pCO2 POC ABG pO2 Sodium Potassium Chloride Carbon Dioxide BUN Creatinine Glucose POC Glucose 127 H 125 H 159 H Lactic Acid Uric Acid Calcium Phosphorus Iron TIBC Erythropoietin Ferritin Total Bilirubin Direct Bilirubin AST ALT Alkaline Phosphatase Lactate Dehydrogenase C-Reactive Protein Serum Total Protein Total Protein Albumin Rvybl-0-Chzaygwdx Abnorm Protein Band 1 PEP Interpretation Crossmatch 10/18/16 10/18/16 10/19/16 23:11 23:57 01:06 WBC RBC Hgb Hct MCV MCHC RDW Plt Count Seg Neuts % (Manual) Lymphocytes % (Manual) Nucleated RBC % Seg Neutrophils # Man Lymphocytes # (Manual) Haptoglobin PT INR Fibrinogen Lupus Anticoagulant LA PTT Baseline POC ABG pH POC ABG pCO2 POC ABG pO2 Sodium Potassium Chloride Carbon Dioxide BUN Creatinine Glucose POC Glucose 122 H 137 H 162 H Lactic Acid Uric Acid Calcium Phosphorus Iron TIBC Erythropoietin Ferritin Total Bilirubin Direct Bilirubin AST ALT Alkaline Phosphatase Lactate Dehydrogenase C-Reactive Protein Serum Total Protein Total Protein Albumin Xmalg-3-Qilqnyrmy Abnorm Protein Band 1 PEP Interpretation Crossmatch 10/19/16 10/19/16 10/19/16 01:59 03:07 04:10 WBC RBC Hgb Hct MCV MCHC RDW Plt Count Seg Neuts % (Manual) Lymphocytes % (Manual) Nucleated RBC % Seg Neutrophils # Man Lymphocytes # (Manual) Haptoglobin PT INR Fibrinogen Lupus Anticoagulant LA PTT Baseline POC ABG pH POC ABG pCO2 POC ABG pO2 Sodium Potassium Chloride Carbon Dioxide BUN Creatinine Glucose POC Glucose 154 H 178 H 186 H Lactic Acid Uric Acid Calcium Phosphorus Iron TIBC Erythropoietin Ferritin Total Bilirubin Direct Bilirubin AST ALT Alkaline Phosphatase Lactate Dehydrogenase C-Reactive Protein Serum Total Protein Total Protein Albumin Ynryl-1-Wspcnuyzu Abnorm Protein Band 1 PEP Interpretation Crossmatch 10/19/16 10/19/16 10/19/16 05:14 05:15 05:47 WBC RBC Hgb Hct MCV MCHC RDW Plt Count Seg Neuts % (Manual) Lymphocytes % (Manual) Nucleated RBC % Seg Neutrophils # Man Lymphocytes # (Manual) Haptoglobin PT INR Fibrinogen Lupus Anticoagulant LA PTT Baseline POC ABG pH 7.581 H POC ABG pCO2 22.9 L POC ABG pO2 58 L Sodium Potassium Chloride Carbon Dioxide BUN Creatinine Glucose POC Glucose 197 H 204 H Lactic Acid Uric Acid Calcium Phosphorus Iron TIBC Erythropoietin Ferritin Total Bilirubin Direct Bilirubin AST ALT Alkaline Phosphatase Lactate Dehydrogenase C-Reactive Protein Serum Total Protein Total Protein Albumin Cjtnx-2-Tngdzognc Abnorm Protein Band 1 PEP Interpretation Crossmatch 10/19/16 10/19/16 10/19/16 06:00 06:00 07:51 WBC 23.0 H RBC 2.54 L Hgb 7.5 L Hct 23.0 L MCV MCHC RDW 20.7 H Plt Count 25 L Seg Neuts % (Manual) 91.0 H Lymphocytes % (Manual) 2.0 L Nucleated RBC % 1.0 H Seg Neutrophils # Man 20.9 H Lymphocytes # (Manual) 0.5 L Haptoglobin PT INR Fibrinogen Lupus Anticoagulant LA PTT Baseline POC ABG pH POC ABG pCO2 POC ABG pO2 Sodium Potassium Chloride 88.7 L Carbon Dioxide 21 L BUN 70 H Creatinine 3.9 H Glucose 189 H POC Glucose 145 H Lactic Acid Uric Acid Calcium 5.6 L* Phosphorus 6.30 H Iron TIBC Erythropoietin Ferritin Total Bilirubin Direct Bilirubin AST ALT Alkaline Phosphatase Lactate Dehydrogenase C-Reactive Protein Serum Total Protein Total Protein Albumin Pgieg-7-Cpuwtogbf Abnorm Protein Band 1 PEP Interpretation Crossmatch 10/19/16 10/19/16 10/19/16 09:14 10:01 12:14 WBC RBC Hgb Hct MCV MCHC RDW Plt Count Seg Neuts % (Manual) Lymphocytes % (Manual) Nucleated RBC % Seg Neutrophils # Man Lymphocytes # (Manual) Haptoglobin PT INR Fibrinogen Lupus Anticoagulant LA PTT Baseline POC ABG pH POC ABG pCO2 POC ABG pO2 Sodium Potassium Chloride Carbon Dioxide BUN Creatinine Glucose POC Glucose 173 H 153 H 180 H Lactic Acid Uric Acid Calcium Phosphorus Iron TIBC Erythropoietin Ferritin Total Bilirubin Direct Bilirubin AST ALT Alkaline Phosphatase Lactate Dehydrogenase C-Reactive Protein Serum Total Protein Total Protein Albumin Vzixf-9-Jlwxcaprr Abnorm Protein Band 1 PEP Interpretation Crossmatch 10/19/16 10/19/16 10/19/16 14:15 16:38 20:27 WBC RBC Hgb Hct MCV MCHC RDW Plt Count Seg Neuts % (Manual) Lymphocytes % (Manual) Nucleated RBC % Seg Neutrophils # Man Lymphocytes # (Manual) Haptoglobin PT INR Fibrinogen Lupus Anticoagulant LA PTT Baseline POC ABG pH POC ABG pCO2 POC ABG pO2 Sodium Potassium Chloride Carbon Dioxide BUN Creatinine Glucose POC Glucose 194 H 202 H Lactic Acid Uric Acid Calcium Phosphorus Iron TIBC Erythropoietin 148.2 H Ferritin Total Bilirubin Direct Bilirubin AST ALT Alkaline Phosphatase Lactate Dehydrogenase C-Reactive Protein Serum Total Protein Total Protein Albumin Vzbcn-7-Jvmukhyyg Abnorm Protein Band 1 PEP Interpretation Crossmatch 10/19/16 10/20/16 10/20/16 23:27 04:06 05:00 WBC RBC Hgb Hct MCV MCHC RDW Plt Count Seg Neuts % (Manual) Lymphocytes % (Manual) Nucleated RBC % Seg Neutrophils # Man Lymphocytes # (Manual) Haptoglobin PT INR Fibrinogen Lupus Anticoagulant LA PTT Baseline POC ABG pH POC ABG pCO2 POC ABG pO2 Sodium Potassium Chloride 88.8 L Carbon Dioxide BUN 93 H Creatinine 4.3 H Glucose 204 H POC Glucose 201 H 200 H Lactic Acid Uric Acid Calcium 5.2 L* Phosphorus Iron TIBC Erythropoietin Ferritin Total Bilirubin Direct Bilirubin AST ALT Alkaline Phosphatase Lactate Dehydrogenase C-Reactive Protein Serum Total Protein Total Protein Albumin Wwmgx-4-Vlyqrnttn Abnorm Protein Band 1 PEP Interpretation Crossmatch 10/20/16 10/20/16 10/20/16 05:16 06:00 07:43 WBC 24.8 H RBC 2.52 L Hgb 7.4 L Hct 22.9 L MCV MCHC RDW 19.9 H Plt Count 23 L Seg Neuts % (Manual) 97.0 H Lymphocytes % (Manual) 1.0 L Nucleated RBC % 9.0 H Seg Neutrophils # Man 24.1 H Lymphocytes # (Manual) 0.2 L Haptoglobin PT INR Fibrinogen Lupus Anticoagulant LA PTT Baseline POC ABG pH 7.463 H POC ABG pCO2 POC ABG pO2 157 H Sodium Potassium Chloride Carbon Dioxide BUN Creatinine Glucose POC Glucose 192 H Lactic Acid Uric Acid Calcium Phosphorus Iron TIBC Erythropoietin Ferritin Total Bilirubin Direct Bilirubin AST ALT Alkaline Phosphatase Lactate Dehydrogenase C-Reactive Protein Serum Total Protein Total Protein Albumin Okftl-5-Ebysmthdk Abnorm Protein Band 1 PEP Interpretation Crossmatch 10/20/16 10/20/16 10/20/16 12:11 15:32 21:23 WBC RBC Hgb Hct MCV MCHC RDW Plt Count Seg Neuts % (Manual) Lymphocytes % (Manual) Nucleated RBC % Seg Neutrophils # Man Lymphocytes # (Manual) Haptoglobin PT INR Fibrinogen Lupus Anticoagulant LA PTT Baseline POC ABG pH POC ABG pCO2 POC ABG pO2 Sodium Potassium Chloride Carbon Dioxide BUN Creatinine Glucose POC Glucose 172 H 216 H 271 H Lactic Acid Uric Acid Calcium Phosphorus Iron TIBC Erythropoietin Ferritin Total Bilirubin Direct Bilirubin AST ALT Alkaline Phosphatase Lactate Dehydrogenase C-Reactive Protein Serum Total Protein Total Protein Albumin Pwztk-1-Qqagkgxjs Abnorm Protein Band 1 PEP Interpretation Crossmatch 10/20/16 10/21/16 10/21/16 23:49 03:53 04:58 WBC RBC Hgb Hct MCV MCHC RDW Plt Count Seg Neuts % (Manual) Lymphocytes % (Manual) Nucleated RBC % Seg Neutrophils # Man Lymphocytes # (Manual) Haptoglobin PT INR Fibrinogen Lupus Anticoagulant LA PTT Baseline POC ABG pH 7.459 H POC ABG pCO2 POC ABG pO2 113 H Sodium 136 L Potassium 2.8 L* D Chloride 91.6 L Carbon Dioxide BUN 62 H Creatinine 2.8 H Glucose 236 H POC Glucose 317 H Lactic Acid Uric Acid Calcium 6.2 L D Phosphorus Iron TIBC Erythropoietin Ferritin Total Bilirubin 2.70 H Direct Bilirubin AST 73 H ALT 57 H Alkaline Phosphatase 158 H Lactate Dehydrogenase C-Reactive Protein Serum Total Protein Total Protein 4.9 L Albumin 2.6 L Nrpya-1-Lloaeyotv Abnorm Protein Band 1 PEP Interpretation Crossmatch 10/21/16 10/21/16 10/21/16 05:25 07:11 10:30 WBC 28.1 H RBC 2.36 L Hgb 7.0 L Hct 21.6 L MCV MCHC RDW 20.0 H Plt Count 14 L* Seg Neuts % (Manual) 92.0 H Lymphocytes % (Manual) 0 L Nucleated RBC % 5.0 H Seg Neutrophils # Man 25.9 H Lymphocytes # (Manual) 0.0 L Haptoglobin PT INR Fibrinogen Lupus Anticoagulant LA PTT Baseline POC ABG pH POC ABG pCO2 POC ABG pO2 Sodium Potassium Chloride Carbon Dioxide BUN Creatinine Glucose POC Glucose 237 H 206 H Lactic Acid Uric Acid Calcium Phosphorus Iron TIBC Erythropoietin Ferritin Total Bilirubin Direct Bilirubin AST ALT Alkaline Phosphatase Lactate Dehydrogenase C-Reactive Protein Serum Total Protein Total Protein Albumin Eowdx-9-Tviftficz Abnorm Protein Band 1 PEP Interpretation Crossmatch 10/21/16 10/21/16 10/21/16 11:25 12:31 16:33 WBC RBC Hgb Hct MCV MCHC RDW Plt Count Seg Neuts % (Manual) Lymphocytes % (Manual) Nucleated RBC % Seg Neutrophils # Man Lymphocytes # (Manual) Haptoglobin PT 49.1 H INR 5.28 H* Fibrinogen Lupus Anticoagulant LA PTT Baseline POC ABG pH POC ABG pCO2 POC ABG pO2 Sodium Potassium Chloride Carbon Dioxide BUN Creatinine Glucose POC Glucose 145 H 151 H Lactic Acid Uric Acid Calcium Phosphorus Iron TIBC Erythropoietin Ferritin Total Bilirubin Direct Bilirubin AST ALT Alkaline Phosphatase Lactate Dehydrogenase C-Reactive Protein Serum Total Protein Total Protein Albumin Fudss-0-Nbzjqlpkm Abnorm Protein Band 1 PEP Interpretation Crossmatch 10/21/16 10/22/16 10/22/16 19:53 00:00 05:23 WBC RBC Hgb Hct MCV MCHC RDW Plt Count Seg Neuts % (Manual) Lymphocytes % (Manual) Nucleated RBC % Seg Neutrophils # Man Lymphocytes # (Manual) Haptoglobin PT INR Fibrinogen Lupus Anticoagulant LA PTT Baseline POC ABG pH POC ABG pCO2 POC ABG pO2 Sodium Potassium Chloride Carbon Dioxide BUN Creatinine Glucose POC Glucose 170 H 168 H 131 H Lactic Acid Uric Acid Calcium Phosphorus Iron TIBC Erythropoietin Ferritin Total Bilirubin Direct Bilirubin AST ALT Alkaline Phosphatase Lactate Dehydrogenase C-Reactive Protein Serum Total Protein Total Protein Albumin Sknad-8-Rswsixyak Abnorm Protein Band 1 PEP Interpretation Crossmatch 10/22/16 10/22/16 10/22/16 05:25 05:35 13:03 WBC RBC Hgb Hct MCV MCHC RDW Plt Count Seg Neuts % (Manual) Lymphocytes % (Manual) Nucleated RBC % Seg Neutrophils # Man Lymphocytes # (Manual) Haptoglobin PT INR Fibrinogen Lupus Anticoagulant LA PTT Baseline POC ABG pH 7.462 H POC ABG pCO2 POC ABG pO2 Sodium 135 L Potassium 3.0 L Chloride 88.5 L Carbon Dioxide BUN 84 H Creatinine 3.4 H Glucose 124 H POC Glucose 164 H Lactic Acid Uric Acid Calcium 5.9 L* Phosphorus Iron TIBC Erythropoietin Ferritin Total Bilirubin 2.00 H Direct Bilirubin AST 85 H ALT Alkaline Phosphatase 199 H Lactate Dehydrogenase C-Reactive Protein Serum Total Protein Total Protein 5.0 L Albumin 2.5 L Jwoyv-1-Sonvpyyas Abnorm Protein Band 1 PEP Interpretation Crossmatch 10/22/16 10/22/16 10/23/16 17:14 23:16 04:47 WBC RBC Hgb Hct MCV MCHC RDW Plt Count Seg Neuts % (Manual) Lymphocytes % (Manual) Nucleated RBC % Seg Neutrophils # Man Lymphocytes # (Manual) Haptoglobin PT INR Fibrinogen Lupus Anticoagulant LA PTT Baseline POC ABG pH 7.476 H POC ABG pCO2 POC ABG pO2 108 H Sodium Potassium Chloride Carbon Dioxide BUN Creatinine Glucose POC Glucose 188 H 167 H Lactic Acid Uric Acid Calcium Phosphorus Iron TIBC Erythropoietin Ferritin Total Bilirubin Direct Bilirubin AST ALT Alkaline Phosphatase Lactate Dehydrogenase C-Reactive Protein Serum Total Protein Total Protein Albumin Rqlmd-7-Dovbdfjbz Abnorm Protein Band 1 PEP Interpretation Crossmatch 10/23/16 10/23/16 10/23/16 05:49 07:00 07:12 WBC 24.2 H RBC 2.27 L Hgb 7.0 L Hct 21.1 L MCV MCHC RDW 19.7 H Plt Count 35 L D Seg Neuts % (Manual) Lymphocytes % (Manual) Nucleated RBC % Seg Neutrophils # Man Lymphocytes # (Manual) Haptoglobin PT INR Fibrinogen Lupus Anticoagulant LA PTT Baseline POC ABG pH POC ABG pCO2 POC ABG pO2 Sodium Potassium 3.5 L Chloride 95.7 L Carbon Dioxide BUN 55 H Creatinine 2.7 H Glucose 103 H POC Glucose 106 H Lactic Acid Uric Acid Calcium 7.1 L D Phosphorus Iron TIBC Erythropoietin Ferritin Total Bilirubin Direct Bilirubin AST ALT Alkaline Phosphatase Lactate Dehydrogenase C-Reactive Protein Serum Total Protein Total Protein Albumin Jrptv-7-Lwntzkpkq Abnorm Protein Band 1 PEP Interpretation Crossmatch 10/24/16 10/24/16 10/24/16 00:12 05:16 07:00 WBC 17.9 H RBC 2.12 L Hgb 6.5 L Hct 19.9 L* MCV MCHC RDW 19.3 H Plt Count 44 L Seg Neuts % (Manual) Lymphocytes % (Manual) Nucleated RBC % Seg Neutrophils # Man Lymphocytes # (Manual) Haptoglobin PT INR Fibrinogen Lupus Anticoagulant LA PTT Baseline POC ABG pH POC ABG pCO2 POC ABG pO2 Sodium Potassium Chloride Carbon Dioxide BUN Creatinine Glucose POC Glucose 116 H 135 H Lactic Acid Uric Acid Calcium Phosphorus Iron TIBC Erythropoietin Ferritin Total Bilirubin Direct Bilirubin AST ALT Alkaline Phosphatase Lactate Dehydrogenase C-Reactive Protein Serum Total Protein Total Protein Albumin Dghrx-6-Oesluwsfg Abnorm Protein Band 1 PEP Interpretation Crossmatch 10/24/16 10/24/16 10/24/16 07:00 11:45 12:12 WBC RBC Hgb Hct MCV MCHC RDW Plt Count Seg Neuts % (Manual) Lymphocytes % (Manual) Nucleated RBC % Seg Neutrophils # Man Lymphocytes # (Manual) Haptoglobin PT INR Fibrinogen Lupus Anticoagulant LA PTT Baseline POC ABG pH POC ABG pCO2 POC ABG pO2 Sodium Potassium Chloride 92.9 L Carbon Dioxide BUN 74 H Creatinine 3.3 H Glucose 136 H POC Glucose 177 H Lactic Acid Uric Acid Calcium 6.6 L Phosphorus Iron TIBC Erythropoietin Ferritin Total Bilirubin 2.10 H Direct Bilirubin AST 68 H ALT Alkaline Phosphatase 224 H Lactate Dehydrogenase C-Reactive Protein Serum Total Protein Total Protein 4.8 L Albumin 2.3 L Honrv-1-Dgmsbeugv Abnorm Protein Band 1 PEP Interpretation Crossmatch See Detail 10/24/16 10/24/16 10/24/16 16:30 16:30 17:28 WBC RBC Hgb Hct MCV MCHC RDW Plt Count Seg Neuts % (Manual) Lymphocytes % (Manual) Nucleated RBC % Seg Neutrophils # Man Lymphocytes # (Manual) Haptoglobin PT INR Fibrinogen Lupus Anticoagulant LA PTT Baseline POC ABG pH POC ABG pCO2 POC ABG pO2 Sodium Potassium Chloride Carbon Dioxide BUN Creatinine Glucose POC Glucose 128 H Lactic Acid 3.00 H* Uric Acid Calcium Phosphorus Iron TIBC Erythropoietin Ferritin Total Bilirubin Direct Bilirubin AST ALT Alkaline Phosphatase Lactate Dehydrogenase C-Reactive Protein 7.40 H Serum Total Protein Total Protein Albumin Fmquc-7-Pmiduvwrb Abnorm Protein Band 1 PEP Interpretation Crossmatch 10/24/16 10/24/16 10/25/16 18:40 23:32 05:00 WBC 17.5 H RBC 2.99 L Hgb 9.1 L Hct 26.9 L D MCV MCHC RDW 17.7 H Plt Count 53 L Seg Neuts % (Manual) Lymphocytes % (Manual) Nucleated RBC % Seg Neutrophils # Man Lymphocytes # (Manual) Haptoglobin PT INR Fibrinogen Lupus Anticoagulant LA PTT Baseline POC ABG pH POC ABG pCO2 POC ABG pO2 Sodium Potassium Chloride Carbon Dioxide BUN Creatinine Glucose POC Glucose 140 H Lactic Acid 3.10 H* Uric Acid Calcium Phosphorus Iron TIBC Erythropoietin Ferritin Total Bilirubin Direct Bilirubin AST ALT Alkaline Phosphatase Lactate Dehydrogenase C-Reactive Protein Serum Total Protein Total Protein Albumin Ngulc-2-Mncwvlqok Abnorm Protein Band 1 PEP Interpretation Crossmatch 10/25/16 10/25/16 10/25/16 05:00 05:22 11:58 WBC RBC Hgb Hct MCV MCHC RDW Plt Count Seg Neuts % (Manual) Lymphocytes % (Manual) Nucleated RBC % Seg Neutrophils # Man Lymphocytes # (Manual) Haptoglobin PT INR Fibrinogen Lupus Anticoagulant LA PTT Baseline POC ABG pH POC ABG pCO2 POC ABG pO2 Sodium Potassium Chloride 91.6 L Carbon Dioxide BUN 89 H Creatinine 3.9 H Glucose 150 H POC Glucose 164 H 189 H Lactic Acid Uric Acid Calcium 6.9 L Phosphorus Iron TIBC Erythropoietin Ferritin Total Bilirubin Direct Bilirubin AST ALT Alkaline Phosphatase Lactate Dehydrogenase C-Reactive Protein Serum Total Protein Total Protein Albumin Abarl-9-Durkckskk Abnorm Protein Band 1 PEP Interpretation Crossmatch 10/25/16 10/25/16 10/26/16 17:56 23:12 04:00 WBC RBC Hgb Hct MCV MCHC RDW Plt Count Seg Neuts % (Manual) Lymphocytes % (Manual) Nucleated RBC % Seg Neutrophils # Man Lymphocytes # (Manual) Haptoglobin PT INR Fibrinogen Lupus Anticoagulant LA PTT Baseline POC ABG pH POC ABG pCO2 POC ABG pO2 Sodium 135 L Potassium Chloride 90.7 L Carbon Dioxide BUN 64 H Creatinine 2.9 H Glucose 132 H POC Glucose 156 H 133 H Lactic Acid Uric Acid Calcium 7.3 L Phosphorus Iron TIBC Erythropoietin Ferritin Total Bilirubin Direct Bilirubin AST ALT Alkaline Phosphatase Lactate Dehydrogenase C-Reactive Protein Serum Total Protein Total Protein Albumin Gtblo-0-Dbkkumncm Abnorm Protein Band 1 PEP Interpretation Crossmatch 10/26/16 10/26/16 10/26/16 05:14 06:15 11:51 WBC 18.6 H RBC 3.15 L Hgb 9.6 L Hct 29.0 L MCV MCHC RDW 17.8 H Plt Count 71 L Seg Neuts % (Manual) 85.0 H Lymphocytes % (Manual) 1.0 L Nucleated RBC % Seg Neutrophils # Man 15.8 H Lymphocytes # (Manual) 0.2 L Haptoglobin PT INR Fibrinogen Lupus Anticoagulant LA PTT Baseline POC ABG pH POC ABG pCO2 POC ABG pO2 Sodium Potassium Chloride Carbon Dioxide BUN Creatinine Glucose POC Glucose 130 H 139 H Lactic Acid Uric Acid Calcium Phosphorus Iron TIBC Erythropoietin Ferritin Total Bilirubin Direct Bilirubin AST ALT Alkaline Phosphatase Lactate Dehydrogenase C-Reactive Protein Serum Total Protein Total Protein Albumin Arglo-2-Ptewawscr Abnorm Protein Band 1 PEP Interpretation Crossmatch 10/26/16 10/26/16 10/27/16 17:25 23:35 04:10 WBC 16.8 H RBC 3.38 L Hgb 10.1 L Hct 31.0 L MCV MCHC RDW 18.0 H Plt Count 77 L Seg Neuts % (Manual) 92.0 H Lymphocytes % (Manual) 1.0 L Nucleated RBC % 1.0 H Seg Neutrophils # Man 15.5 H Lymphocytes # (Manual) 0.2 L Haptoglobin PT INR Fibrinogen Lupus Anticoagulant LA PTT Baseline POC ABG pH POC ABG pCO2 POC ABG pO2 Sodium Potassium Chloride Carbon Dioxide BUN Creatinine Glucose POC Glucose 118 H 145 H Lactic Acid Uric Acid Calcium Phosphorus Iron TIBC Erythropoietin Ferritin Total Bilirubin Direct Bilirubin AST ALT Alkaline Phosphatase Lactate Dehydrogenase C-Reactive Protein Serum Total Protein Total Protein Albumin Htqzw-2-Jaytiqzbc Abnorm Protein Band 1 PEP Interpretation Crossmatch 10/27/16 10/27/16 10/27/16 04:10 05:53 08:14 WBC RBC Hgb Hct MCV MCHC RDW Plt Count Seg Neuts % (Manual) Lymphocytes % (Manual) Nucleated RBC % Seg Neutrophils # Man Lymphocytes # (Manual) Haptoglobin PT 23.0 H INR 2.03 H Fibrinogen Lupus Anticoagulant LA PTT Baseline POC ABG pH POC ABG pCO2 POC ABG pO2 Sodium Potassium Chloride 95.5 L Carbon Dioxide BUN 63 H Creatinine 2.8 H Glucose 112 H POC Glucose 127 H Lactic Acid Uric Acid Calcium 7.5 L Phosphorus Iron TIBC Erythropoietin Ferritin Total Bilirubin Direct Bilirubin AST ALT Alkaline Phosphatase Lactate Dehydrogenase C-Reactive Protein Serum Total Protein Total Protein Albumin Rutxq-8-Ehkdesxqg Abnorm Protein Band 1 PEP Interpretation Crossmatch 10/27/16 10/27/16 10/27/16 11:56 17:47 23:55 WBC RBC Hgb Hct MCV MCHC RDW Plt Count Seg Neuts % (Manual) Lymphocytes % (Manual) Nucleated RBC % Seg Neutrophils # Man Lymphocytes # (Manual) Haptoglobin PT INR Fibrinogen Lupus Anticoagulant LA PTT Baseline POC ABG pH POC ABG pCO2 POC ABG pO2 Sodium Potassium Chloride Carbon Dioxide BUN Creatinine Glucose POC Glucose 113 H 117 H 142 H Lactic Acid Uric Acid Calcium Phosphorus Iron TIBC Erythropoietin Ferritin Total Bilirubin Direct Bilirubin AST ALT Alkaline Phosphatase Lactate Dehydrogenase C-Reactive Protein Serum Total Protein Total Protein Albumin Jlrtp-1-Sgryggkoh Abnorm Protein Band 1 PEP Interpretation Crossmatch 10/28/16 10/28/16 10/28/16 05:45 05:45 11:44 WBC 16.6 H RBC 3.18 L Hgb 9.5 L Hct 29.3 L MCV MCHC RDW 17.6 H Plt Count 83 L Seg Neuts % (Manual) 87.0 H Lymphocytes % (Manual) 3.0 L Nucleated RBC % Seg Neutrophils # Man 14.4 H Lymphocytes # (Manual) 0.5 L Haptoglobin PT INR Fibrinogen Lupus Anticoagulant LA PTT Baseline POC ABG pH POC ABG pCO2 POC ABG pO2 Sodium Potassium Chloride 94.6 L Carbon Dioxide 21 L BUN 90 H Creatinine 3.9 H Glucose 152 H POC Glucose 151 H Lactic Acid Uric Acid Calcium 6.9 L Phosphorus Iron TIBC Erythropoietin Ferritin Total Bilirubin Direct Bilirubin AST ALT Alkaline Phosphatase Lactate Dehydrogenase C-Reactive Protein Serum Total Protein Total Protein Albumin Nhiny-6-Kzzmitune Abnorm Protein Band 1 PEP Interpretation Crossmatch 10/28/16 10/28/16 10/29/16 17:31 23:47 04:53 WBC RBC Hgb Hct MCV MCHC RDW Plt Count Seg Neuts % (Manual) Lymphocytes % (Manual) Nucleated RBC % Seg Neutrophils # Man Lymphocytes # (Manual) Haptoglobin PT INR Fibrinogen Lupus Anticoagulant LA PTT Baseline POC ABG pH POC ABG pCO2 POC ABG pO2 Sodium Potassium Chloride Carbon Dioxide BUN Creatinine Glucose POC Glucose 184 H 124 H 153 H Lactic Acid Uric Acid Calcium Phosphorus Iron TIBC Erythropoietin Ferritin Total Bilirubin Direct Bilirubin AST ALT Alkaline Phosphatase Lactate Dehydrogenase C-Reactive Protein Serum Total Protein Total Protein Albumin Zkcry-7-Jmnnxbhcq Abnorm Protein Band 1 PEP Interpretation Crossmatch 10/29/16 10/29/16 10/29/16 06:15 06:15 10:58 WBC 14.1 H RBC 3.15 L Hgb 9.6 L Hct 29.1 L MCV MCHC RDW 17.9 H Plt Count 73 L Seg Neuts % (Manual) 93.0 H Lymphocytes % (Manual) 4.0 L Nucleated RBC % Seg Neutrophils # Man 13.1 H Lymphocytes # (Manual) 0.6 L Haptoglobin PT INR Fibrinogen Lupus Anticoagulant LA PTT Baseline POC ABG pH POC ABG pCO2 POC ABG pO2 Sodium Potassium Chloride Carbon Dioxide BUN 58 H Creatinine 2.7 H Glucose 146 H POC Glucose 134 H Lactic Acid Uric Acid Calcium 7.4 L Phosphorus 5.00 H Iron TIBC Erythropoietin Ferritin Total Bilirubin Direct Bilirubin AST ALT Alkaline Phosphatase Lactate Dehydrogenase C-Reactive Protein Serum Total Protein Total Protein Albumin Mtddw-8-Dfyqavlnj Abnorm Protein Band 1 PEP Interpretation Crossmatch 10/29/16 10/29/16 10/30/16 17:06 23:28 05:16 WBC RBC Hgb Hct MCV MCHC RDW Plt Count Seg Neuts % (Manual) Lymphocytes % (Manual) Nucleated RBC % Seg Neutrophils # Man Lymphocytes # (Manual) Haptoglobin PT INR Fibrinogen Lupus Anticoagulant LA PTT Baseline POC ABG pH POC ABG pCO2 POC ABG pO2 Sodium Potassium Chloride Carbon Dioxide BUN Creatinine Glucose POC Glucose 158 H 133 H 147 H Lactic Acid Uric Acid Calcium Phosphorus Iron TIBC Erythropoietin Ferritin Total Bilirubin Direct Bilirubin AST ALT Alkaline Phosphatase Lactate Dehydrogenase C-Reactive Protein Serum Total Protein Total Protein Albumin Mdkmr-3-Svcrdrfdi Abnorm Protein Band 1 PEP Interpretation Crossmatch 10/30/16 10/30/16 10/30/16 06:35 06:35 12:08 WBC 13.0 H RBC 3.08 L Hgb 9.3 L Hct 28.7 L MCV MCHC RDW 18.4 H Plt Count 73 L Seg Neuts % (Manual) Lymphocytes % (Manual) Nucleated RBC % Seg Neutrophils # Man Lymphocytes # (Manual) Haptoglobin PT INR Fibrinogen Lupus Anticoagulant LA PTT Baseline POC ABG pH POC ABG pCO2 POC ABG pO2 Sodium Potassium Chloride Carbon Dioxide BUN 86 H Creatinine 3.5 H Glucose 132 H POC Glucose 134 H Lactic Acid Uric Acid Calcium 7.1 L Phosphorus 5.90 H Iron TIBC Erythropoietin Ferritin Total Bilirubin Direct Bilirubin AST ALT Alkaline Phosphatase Lactate Dehydrogenase C-Reactive Protein Serum Total Protein Total Protein Albumin Loxaa-0-Ibgrpunem Abnorm Protein Band 1 PEP Interpretation Crossmatch 10/30/16 10/30/16 10/31/16 18:02 23:31 05:21 WBC RBC Hgb Hct MCV MCHC RDW Plt Count Seg Neuts % (Manual) Lymphocytes % (Manual) Nucleated RBC % Seg Neutrophils # Man Lymphocytes # (Manual) Haptoglobin PT INR Fibrinogen Lupus Anticoagulant LA PTT Baseline POC ABG pH POC ABG pCO2 POC ABG pO2 Sodium Potassium Chloride Carbon Dioxide BUN Creatinine Glucose POC Glucose 142 H 152 H 152 H Lactic Acid Uric Acid Calcium Phosphorus Iron TIBC Erythropoietin Ferritin Total Bilirubin Direct Bilirubin AST ALT Alkaline Phosphatase Lactate Dehydrogenase C-Reactive Protein Serum Total Protein Total Protein Albumin Urqjx-6-Qgakppakv Abnorm Protein Band 1 PEP Interpretation Crossmatch 10/31/16 10/31/16 10/31/16 06:21 06:21 12:12 WBC 11.9 H RBC 2.82 L Hgb 8.6 L Hct 26.4 L MCV MCHC RDW 17.8 H Plt Count 56 L Seg Neuts % (Manual) Lymphocytes % (Manual) 0 L Nucleated RBC % Seg Neutrophils # Man 10.9 H Lymphocytes # (Manual) 0.0 L Haptoglobin PT INR Fibrinogen Lupus Anticoagulant LA PTT Baseline POC ABG pH POC ABG pCO2 POC ABG pO2 Sodium Potassium Chloride Carbon Dioxide 21 L BUN 107 H Creatinine 4.2 H Glucose 137 H POC Glucose 142 H Lactic Acid Uric Acid Calcium 7.2 L Phosphorus 6.50 H Iron TIBC Erythropoietin Ferritin Total Bilirubin Direct Bilirubin AST ALT Alkaline Phosphatase Lactate Dehydrogenase C-Reactive Protein Serum Total Protein Total Protein Albumin Rohbm-6-Uyqgotnvo Abnorm Protein Band 1 PEP Interpretation Crossmatch 10/31/16 10/31/16 11/01/16 17:34 23:46 05:15 WBC RBC Hgb Hct MCV MCHC RDW Plt Count Seg Neuts % (Manual) Lymphocytes % (Manual) Nucleated RBC % Seg Neutrophils # Man Lymphocytes # (Manual) Haptoglobin PT INR Fibrinogen Lupus Anticoagulant LA PTT Baseline POC ABG pH POC ABG pCO2 POC ABG pO2 Sodium Potassium Chloride Carbon Dioxide BUN Creatinine Glucose POC Glucose 180 H 131 H 148 H Lactic Acid Uric Acid Calcium Phosphorus Iron TIBC Erythropoietin Ferritin Total Bilirubin Direct Bilirubin AST ALT Alkaline Phosphatase Lactate Dehydrogenase C-Reactive Protein Serum Total Protein Total Protein Albumin Gqonx-0-Qbksfhevm Abnorm Protein Band 1 PEP Interpretation Crossmatch 11/01/16 11/01/16 11/01/16 06:00 06:00 11:45 WBC RBC 2.66 L Hgb 8.1 L Hct 24.8 L MCV MCHC RDW 17.7 H Plt Count 47 L Seg Neuts % (Manual) 88.0 H Lymphocytes % (Manual) 0 L Nucleated RBC % Seg Neutrophils # Man Lymphocytes # (Manual) 0.0 L Haptoglobin PT INR Fibrinogen Lupus Anticoagulant LA PTT Baseline POC ABG pH POC ABG pCO2 POC ABG pO2 Sodium 134 L Potassium Chloride 95.6 L Carbon Dioxide BUN 90 H Creatinine 3.5 H Glucose 154 H POC Glucose 169 H Lactic Acid Uric Acid Calcium 7.1 L Phosphorus 5.50 H Iron TIBC Erythropoietin Ferritin Total Bilirubin Direct Bilirubin AST ALT Alkaline Phosphatase Lactate Dehydrogenase C-Reactive Protein Serum Total Protein Total Protein Albumin Iiuxl-5-Vfrhpohtj Abnorm Protein Band 1 PEP Interpretation Crossmatch 11/01/16 11/01/16 11/01/16 18:33 20:55 23:51 WBC RBC Hgb Hct MCV MCHC RDW Plt Count Seg Neuts % (Manual) Lymphocytes % (Manual) Nucleated RBC % Seg Neutrophils # Man Lymphocytes # (Manual) Haptoglobin PT INR Fibrinogen Lupus Anticoagulant LA PTT Baseline POC ABG pH POC ABG pCO2 POC ABG pO2 Sodium Potassium Chloride Carbon Dioxide BUN Creatinine Glucose POC Glucose 128 H 144 H Lactic Acid 3.10 H* Uric Acid Calcium Phosphorus Iron TIBC Erythropoietin Ferritin Total Bilirubin Direct Bilirubin AST ALT Alkaline Phosphatase Lactate Dehydrogenase C-Reactive Protein Serum Total Protein Total Protein Albumin Depax-1-Inqcrdjxi Abnorm Protein Band 1 PEP Interpretation Crossmatch 11/02/16 11/02/16 11/02/16 05:15 05:15 05:24 WBC RBC 2.69 L Hgb 8.2 L Hct 25.1 L MCV MCHC RDW 16.9 H Plt Count 42 L Seg Neuts % (Manual) 94.0 H Lymphocytes % (Manual) 0 L Nucleated RBC % Seg Neutrophils # Man Lymphocytes # (Manual) 0.0 L Haptoglobin PT INR Fibrinogen Lupus Anticoagulant LA PTT Baseline POC ABG pH POC ABG pCO2 POC ABG pO2 Sodium 135 L Potassium Chloride 97.7 L Carbon Dioxide BUN 67 H Creatinine 2.8 H Glucose 107 H POC Glucose 119 H Lactic Acid Uric Acid Calcium 7.3 L Phosphorus 4.90 H Iron TIBC Erythropoietin Ferritin Total Bilirubin Direct Bilirubin AST ALT Alkaline Phosphatase Lactate Dehydrogenase C-Reactive Protein Serum Total Protein Total Protein Albumin Zevcw-5-Sovgujgpx Abnorm Protein Band 1 PEP Interpretation Crossmatch 11/02/16 11/02/16 11/02/16 06:07 09:26 10:00 WBC RBC 2.83 L Hgb 8.7 L Hct 26.5 L MCV MCHC RDW 17.4 H Plt Count 46 L Seg Neuts % (Manual) Lymphocytes % (Manual) Nucleated RBC % Seg Neutrophils # Man Lymphocytes # (Manual) Haptoglobin PT 19.9 H INR 1.69 H Fibrinogen Lupus Anticoagulant LA PTT Baseline POC ABG pH POC ABG pCO2 POC ABG pO2 Sodium Potassium Chloride Carbon Dioxide BUN Creatinine Glucose POC Glucose 111 H Lactic Acid Uric Acid Calcium Phosphorus Iron TIBC Erythropoietin Ferritin Total Bilirubin Direct Bilirubin AST ALT Alkaline Phosphatase Lactate Dehydrogenase C-Reactive Protein Serum Total Protein Total Protein Albumin Pqrkv-3-Oxtnkeqzc Abnorm Protein Band 1 PEP Interpretation Crossmatch 11/03/16 11/03/16 11/03/16 00:02 03:25 03:25 WBC RBC 2.34 L Hgb 7.0 L Hct 21.9 L MCV MCHC RDW 17.6 H Plt Count 49 L Seg Neuts % (Manual) 86.0 H Lymphocytes % (Manual) 4.0 L Nucleated RBC % Seg Neutrophils # Man Lymphocytes # (Manual) 0.3 L Haptoglobin PT INR Fibrinogen Lupus Anticoagulant LA PTT Baseline POC ABG pH POC ABG pCO2 POC ABG pO2 Sodium 136 L Potassium Chloride 94.6 L Carbon Dioxide 21 L BUN 84 H Creatinine 3.2 H Glucose 116 H POC Glucose 114 H Lactic Acid Uric Acid Calcium 7.0 L Phosphorus 5.80 H Iron TIBC Erythropoietin Ferritin Total Bilirubin Direct Bilirubin AST ALT Alkaline Phosphatase Lactate Dehydrogenase C-Reactive Protein Serum Total Protein Total Protein Albumin Idozn-0-Zydoaivnr Abnorm Protein Band 1 PEP Interpretation Crossmatch 11/03/16 11/03/16 11/03/16 03:25 11:05 13:02 WBC RBC Hgb Hct MCV MCHC RDW Plt Count Seg Neuts % (Manual) Lymphocytes % (Manual) Nucleated RBC % Seg Neutrophils # Man Lymphocytes # (Manual) Haptoglobin PT 22.5 H INR 1.98 H Fibrinogen Lupus Anticoagulant LA PTT Baseline POC ABG pH POC ABG pCO2 POC ABG pO2 Sodium Potassium Chloride Carbon Dioxide BUN Creatinine Glucose POC Glucose 165 H Lactic Acid Uric Acid Calcium Phosphorus Iron TIBC Erythropoietin Ferritin Total Bilirubin Direct Bilirubin AST ALT Alkaline Phosphatase Lactate Dehydrogenase C-Reactive Protein Serum Total Protein Total Protein Albumin Jsdgg-5-Wenhjaumk Abnorm Protein Band 1 PEP Interpretation Crossmatch See Detail 11/03/16 11/04/16 11/04/16 18:13 00:27 05:40 WBC RBC Hgb Hct MCV MCHC RDW Plt Count Seg Neuts % (Manual) Lymphocytes % (Manual) Nucleated RBC % Seg Neutrophils # Man Lymphocytes # (Manual) Haptoglobin PT 20.3 H INR 1.74 H Fibrinogen Lupus Anticoagulant LA PTT Baseline POC ABG pH POC ABG pCO2 POC ABG pO2 Sodium Potassium Chloride Carbon Dioxide BUN Creatinine Glucose POC Glucose 163 H 108 H Lactic Acid Uric Acid Calcium Phosphorus Iron TIBC Erythropoietin Ferritin Total Bilirubin Direct Bilirubin AST ALT Alkaline Phosphatase Lactate Dehydrogenase C-Reactive Protein Serum Total Protein Total Protein Albumin Ozsvg-3-Veplcpgac Abnorm Protein Band 1 PEP Interpretation Crossmatch Chest x-ray: image reviewed Allied health notes reviewed: RT
--- NOTE | 2016-11-04 12:21 | Progress Note ---
Assessment and Plan - Patient Problems (1) Renal failure Current Visit: Yes Status: Acute Qualifiers: Renal failure chronicity: acute Acute renal failure type: unspecified Chronic kidney disease stage: C Qualified Code(s): N17.9 - Acute kidney failure, unspecified Plan to address problem: Hemodialysis today for UF and clearance Strict I/O monitoring Avoid Nephrotoxic agents Renally dose medications Obtain daily weights Assess dialysis needs daily (2) Acute respiratory failure Current Visit: Yes Status: Acute Qualifiers: Respiratory failure complication: hypoxia Qualified Code(s): J96.01 - Acute respiratory failure with hypoxia Plan to address problem: Intubated, now has trach, as per Pulmonary (3) Anemia Current Visit: Yes Status: Acute Qualifiers: Anemia type: unspecified type Iron deficiency anemia type: I Vitamin B12 deficiency anemia type: V Folate deficiency anemia type: F Bone marrow failure anemia type: B Hemolytic anemia type: H Other causes of anemia: O Chronic kidney disease stage: C Qualified Code(s): D64.9 - Anemia, unspecified Plan to address problem: Monitor labs and transfuse as needed Hematology onboard (4) Thrombocytopenia Current Visit: Yes Status: Acute Plan to address problem: Still awaiting [id number] result to decide further treatment course per Hematology (5) Atrial fibrillation Current Visit: Yes Status: Acute Qualifiers: Atrial fibrillation type: A Plan to address problem: On Labetalol Subjective Date of service: 11/04/16 Principal diagnosis: Sepsis Syndrome; MAHA; RAJESH; CHF; TTP Interval history: Patient intubated via trach. Unresponsive. No family at bedside. Objective - Vital Signs Vital signs: Vital Signs - 12hr 11/04/16 11/04/16 11/04/16 00:30 00:50 01:00 Temperature Pulse Rate 94 H 92 H Pulse Rate [ From Monitor] Respiratory 20 20 Rate Blood Pressure 116/85 116/83 O2 Sat by Pulse Oximetry O2 Sat by Pulse 100 Oximetry [ Assessment] 11/04/16 11/04/16 11/04/16 01:30 02:00 02:30 Temperature Pulse Rate 93 H 93 H 95 H Pulse Rate [ From Monitor] Respiratory 19 20 22 Rate Blood Pressure 116/80 117/83 119/85 O2 Sat by Pulse 100 Oximetry O2 Sat by Pulse Oximetry [ Assessment] 11/04/16 11/04/16 11/04/16 03:00 03:30 04:00 Temperature 97.8 F Pulse Rate 95 H 94 H 89 Pulse Rate [ 97 H From Monitor] Respiratory 18 19 18 Rate Blood Pressure 120/85 113/79 109/75 O2 Sat by Pulse 100 Oximetry O2 Sat by Pulse Oximetry [ Assessment] 11/04/16 11/04/16 11/04/16 04:30 04:45 05:00 Temperature Pulse Rate 97 H 92 H 93 H Pulse Rate [ From Monitor] Respiratory 17 22 Rate Blood Pressure 120/92 101/71 101/71 O2 Sat by Pulse 100 93 Oximetry O2 Sat by Pulse Oximetry [ Assessment] 11/04/16 11/04/16 11/04/16 05:30 06:00 06:30 Temperature Pulse Rate 90 90 94 H Pulse Rate [ From Monitor] Respiratory 18 18 21 Rate Blood Pressure 100/71 101/70 109/78 O2 Sat by Pulse 99 Oximetry O2 Sat by Pulse Oximetry [ Assessment] 11/04/16 11/04/16 11/04/16 07:00 07:30 08:00 Temperature 98.6 F Pulse Rate 91 H 93 H 96 H Pulse Rate [ From Monitor] Respiratory 18 19 20 Rate Blood Pressure 102/73 104/73 112/77 O2 Sat by Pulse 100 Oximetry O2 Sat by Pulse Oximetry [ Assessment] 11/04/16 11/04/16 11/04/16 08:30 08:53 08:59 Temperature Pulse Rate 93 H 93 H Pulse Rate [ From Monitor] Respiratory 18 Rate Blood Pressure 100/70 100/70 O2 Sat by Pulse 100 100 Oximetry O2 Sat by Pulse 100 Oximetry [ Assessment] 11/04/16 11/04/16 11/04/16 09:00 09:30 10:00 Temperature Pulse Rate 98 H 94 H 93 H Pulse Rate [ From Monitor] Respiratory 18 19 20 Rate Blood Pressure 108/75 100/68 105/71 O2 Sat by Pulse 97 100 100 Oximetry O2 Sat by Pulse Oximetry [ Assessment] 11/04/16 11/04/16 10:30 11:01 Temperature Pulse Rate 98 H 100 H Pulse Rate [ From Monitor] Respiratory 20 17 Rate Blood Pressure 110/77 109/73 O2 Sat by Pulse 100 Oximetry O2 Sat by Pulse Oximetry [ Assessment] - General Appearance General appearance: chronically ill, intubated, other EENT: ATNC Neck: no JVD Respiratory: Present: Decreased Breath Sounds, Other (coarse breath sounds, intubated via trach) Cardiology: irregular, tachycardia, S1S2 Gastrointestinal: normoactive bowel sounds, other (Has PEG tube with rube feedings infusing) Neurologic: other (Unresponsive) Musculoskeletal: other (2+ edema to BLE) - Lab 11/03/16 03:25 11/03/16 03:25 Most recent lab results Calcium 7.0 mg/dL (8.4-10.2) L 11/03/16 03:25 Phosphorus 5.80 mg/dL (2.5-4.5) H 11/03/16 03:25
[2016-11-04] MEDS: PEPCID PO SCH (12:34)
[2016-11-04] MEDS: LOPRESSOR PO SCH ×2 (12:35→22:51)
[2016-11-04] MEDS: VITAMIN K *ORAL LIQUID FEEDTUBE SCH (12:37)
--- NOTE | 2016-11-04 14:21 | Progress Note ---
Assessment and Plan Assessment and plan: Patient is a 61-year-old man without known past medical history who presented to the emergency department [facility] on 10/13/16, complaining of bilateral leg swelling that worsened for the last 4 days. He was found to have severe metabolic acidosis, creatinine was 14.5 with hyperkalemia, emergent Hemodialysis was done. He was also found to have severe pancytopenia, thrombocytopenia and Dr. 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 He was on bipap and was intubated 10/16/16, details are not readily available on why he needed to be intubated, no nursing note for 10/16. -Acute encephalopathy, not sedated, see Neurologist note below -AFIB WITH RVR: Cardiology is following -Group B strep bacteremia: JONATHAN done on 10/27/16 but plt count too low, probably when plt count over 50k -Acute Respiratory failure with hypoxia, intubated: continue mv -Pancytopenia [leukopenia, severe anemia, Woresening thrombocytopenia] heme/onc is following, s/p PLASMAPHERSIS, s/p PRBC transfusion, s/p plt -ARF, renal tubular stasis, poa -secondary coagulopathy -Lactic acidosis -Probable TTP, await [id number] results -hypoglycemia -Acute systolic congestive heart failure EF around 30% -SEVERE SEPSIS, poa per Neurologist, Dr. Bernardo "61 YO M Hx HTN admitted 10/13 w/ sepsis w/ bacteremia, severe metabolic acidosis , RAJESH requiring emergent HD, severe pancytopenia, ? DIC vs. HUS vs. TTP on Plasmapheresis and acute respiratory failure with hypoxia s/p intubation. There has not been cleared documented episode of cardiac arrest but pt was hypotensive during admission. On exam eyes open to stimlation, stuporous MS poor concentration, paucity of speech, intact brainstem reflexes but not able to follow midline/peripheral commands w/ grossly intact motor-sensory exam as withdraws from pain in UE but triple flexion LE but otherwise grossly intact symmetric neurologic exam, consistent with toxic metabolic infectious derangement as the etiology for neurologic decompensation. CTH 10/13 vague L anterior internal capsule hypodensities and chronic lacunes L brainstem and L periventricular white matter. B12/TSH/NH4 normal. 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 No Stone dispensed d/t RAJESH. TTE w/o endocarditis/thrombus. Recommendations: 1. Check f/u CTH and CTA H/N 2. Cont Infectious work up/medical management for UTI, PNA, cellulitis, bacteremia, etc. 3. Avoid hyponatremia, hypo/hyper-calcemia, hypo/hyperglycemia, acidosis, hypoxia/hypoxemia, hypercarbia/hypercapnia 4. Avoid institution of any psychoactive medications (e.g. antihistamines, anticholinergics, BZD, hypnotics, opiates) as able unless low doses of low potency antipsychotic needed for behavioral issues complicating medical care 5. Thiamine/Folate/CIWA protocol accordingly for any hx obtained to suggest EtOH withdrawal 6. Cont home meds-there is no neurologic indication to change CTH confirms multifocal hemorrhagic lesions but no midline shift/compression of brain structures/significant mass effect and is actually improved from prior MRI. CTA H/N w/o vascular lesion. JONATHAN w/o endocarditis or source of emboli. 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 Recs: 1. Avoid all blood thinners until hemorrhage stable 2. BP control: goal < 140/90 using prn Labetalol/Hydralyzine/Nicardipine. Cont home BP med. 3. Cont Infectious work up/medical management for UTI, PNA, cellulitis, bacteremia, etc. 3. Avoid hyponatremia, hypo/hyper-calcemia, hypo/hyperglycemia, acidosis, hypoxia/hypoxemia, hypercarbia/hypercapnia 4. Avoid institution of any psychoactive medications (e.g. antihistamines, anticholinergics, BZD, hypnotics, opiates) as able unless low doses of low potency antipsychotic needed for behavioral issues complicating medical care 5. Thiamine/Folate/CIWA protocol accordingly for any hx obtained to suggest EtOH withdrawal 6. Cont home meds-there is no neurologic indication to change 7. DVT Prophylaxis: SCDs/TEDs 8. Dispo: PT/OT/CM evaluations" Trach and peg done drop in HCt, transfuse prbc and repeat h/h History Interval history: Patient seen and examined. Follow up on respiratory failure, patient still intubated. Overnight uneventful. No cp, sob, n/v or severe headaches. Imaging, old records, testing, labs, nursing notes reviewed. Hospitalist Physical - Physical exam Narrative exam: GEN: Critically ill intubated but not sedated HEENT: Eyes are floating, ET tube in place CVS: irregular, NORMAL S1S2 LUNGS/CHEST: NORMAL CHEST EXPANSION B, GOOD AIR ENTRY B ABD: SOFT, POSITIVE BOWEL SOUNDS, NONDISTENDED, NO REBOUND OR GUARDING NEURO: CN 2-12 GROSSLY INTACT, he doesn't follow commands PSY: Unresponsive - Constitutional Vitals: Temp Pulse Resp BP Pulse Ox 98.5 F 87 24 100/72 100 11/04/16 12:00 11/04/16 13:00 11/04/16 13:00 11/04/16 13:00 11/04/16 13:00 General appearance: Absent: severe distress Results - Labs CBC & Chem 7: 11/03/16 03:25 11/03/16 03:25 Labs: Laboratory Last Values WBC 8.1 K/mm3 (4.5-11.0) 11/03/16 03:25 RBC 2.34 M/mm3 (3.65-5.03) L 11/03/16 03:25 Hgb 7.0 gm/dl (11.8-15.2) L 11/03/16 03:25 Hct 21.9 % (35.5-45.6) L 11/03/16 03:25 MCV 94 fl (84-94) 11/03/16 03:25 MCH 30 pg (28-32) 11/03/16 03:25 MCHC 32 % (32-34) 11/03/16 03:25 RDW 17.6 % (13.2-15.2) H 11/03/16 03:25 Plt Count 49 K/mm3 (140-440) L 11/03/16 03:25 Lymph % (Auto) Allopathic Doctor 10/14/16 04:34 Daggett % (Auto) Allopathic Doctor 10/14/16 04:34 Eos % (Auto) Allopathic Doctor 10/14/16 04:34 Baso % (Auto) Allopathic Doctor 10/14/16 04:34 Lymph # Allopathic Doctor 10/14/16 04:34 Daggett # Allopathic Doctor 10/14/16 04:34 Eos # Allopathic Doctor 10/14/16 04:34 Baso # Allopathic Doctor 10/14/16 04:34 Add Manual Diff Complete 11/03/16 03:25 Total Counted 100 11/03/16 03:25 Seg Neutrophils % Allopathic Doctor 11/03/16 03:25 Seg Neuts % (Manual) 86.0 % (40.0-70.0) H 11/03/16 03:25 Band Neutrophils % 10.0 % 11/03/16 03:25 Lymphocytes % (Manual) 4.0 % (13.4-35.0) L 11/03/16 03:25 Reactive Lymphs % (Man) 0 % 11/03/16 03:25 Monocytes % (Manual) 0 % (0.0-7.3) 11/03/16 03:25 Eosinophils % (Manual) 0 % (0.0-4.3) 11/03/16 03:25 Basophils % (Manual) 0 % (0.0-1.8) 11/03/16 03:25 Metamyelocytes % 0 % 11/03/16 03:25 Myelocytes % 0 % 11/03/16 03:25 Promyelocytes % 0 % 11/03/16 03:25 Blast Cells % 0 % 11/03/16 03:25 Nucleated RBC % Not Reportable 11/03/16 03:25 Seg Neutrophils # Allopathic Doctor 10/14/16 04:34 Seg Neutrophils # Man 7.0 K/mm3 (1.8-7.7) 11/03/16 03:25 Band Neutrophils # 0.8 K/mm3 11/03/16 03:25 Lymphocytes # (Manual) 0.3 K/mm3 (1.2-5.4) L 11/03/16 03:25 Abs React Lymphs (Man) 0.0 K/mm3 11/03/16 03:25 Monocytes # (Manual) 0.0 K/mm3 (0.0-0.8) 11/03/16 03:25 Eosinophils # (Manual) 0.0 K/mm3 (0.0-0.4) 11/03/16 03:25 Basophils # (Manual) 0.0 K/mm3 (0.0-0.1) 11/03/16 03:25 Metamyelocytes # 0.0 K/mm3 11/03/16 03:25 Myelocytes # 0.0 K/mm3 11/03/16 03:25 Promyelocytes # 0.0 K/mm3 11/03/16 03:25 Blast Cells # 0.0 K/mm3 11/03/16 03:25 WBC Morphology Not Reportable 11/03/16 03:25 Hypersegmented Neuts Not Reportable 11/03/16 03:25 Hyposegmented Neuts Not Reportable 11/03/16 03:25 Hypogranular Neuts Not Reportable 11/03/16 03:25 Smudge Cells Not Reportable 11/03/16 03:25 Toxic Granulation Not Reportable 11/03/16 03:25 Toxic Vacuolation Not Reportable 11/03/16 03:25 Dohle Bodies Not Reportable 11/03/16 03:25 Pelger-Huet Anomaly Not Reportable 11/03/16 03:25 Madhu Rods Not Reportable 11/03/16 03:25 Platelet Estimate Appears decreased 11/03/16 03:25 Clumped Platelets Not Reportable 11/03/16 03:25 Plt Clumps, EDTA Not Reportable 11/03/16 03:25 Large Platelets Few 11/03/16 03:25 Giant Platelets Not Reportable 11/03/16 03:25 Platelet Satelliting Not Reportable 11/03/16 03:25 Plt Morphology Comment Not Reportable 11/03/16 03:25 RBC Morphology Not Reportable 11/03/16 03:25 Dimorphic RBCs Not Reportable 11/03/16 03:25 Polychromasia Not Reportable 11/03/16 03:25 Hypochromasia Few 11/03/16 03:25 Poikilocytosis Not Reportable 11/03/16 03:25 Basophilic Stippling Rare 10/21/16 10:30 Anisocytosis 2+ 11/03/16 03:25 Microcytosis 1+ 11/03/16 03:25 Macrocytosis Not Reportable 11/03/16 03:25 Spherocytes Not Reportable 11/03/16 03:25 Pappenheimer Bodies Not Reportable 11/03/16 03:25 Sickle Cells Not Reportable 11/03/16 03:25 Target Cells Not Reportable 11/03/16 03:25 Tear Drop Cells Not Reportable 11/03/16 03:25 Ovalocytes Not Reportable 11/03/16 03:25 Stomatocytes Few 10/28/16 05:45 Helmet Cells Not Reportable 11/03/16 03:25 Goodman-Tornillo Bodies Not Reportable 11/03/16 03:25 [place] Rings Not Reportable 11/03/16 03:25 Sabrina Cells Not Reportable 11/03/16 03:25 Bite Cells Not Reportable 11/03/16 03:25 Crenated Cell Not Reportable 11/03/16 03:25 Elliptocytes Not Reportable 11/03/16 03:25 Acanthocytes (Spur) Not Reportable 11/03/16 03:25 Rouleaux Not Reportable 11/03/16 03:25 Hemoglobin C Crystals Not Reportable 11/03/16 03:25 Schistocytes Not Reportable 11/03/16 03:25 Malaria parasites Not Reportable 11/03/16 03:25 ESR 77 mm/Hr (0-20) 10/14/16 04:34 Pal Bodies Not Reportable 11/03/16 03:25 Haptoglobin <15 mg/dL (43-212) L 10/15/16 12:00 Hem Pathologist Commnt No 11/03/16 03:25 PT 20.3 Sec. (12.2-14.9) H 11/04/16 05:40 INR 1.74 (0.87-1.13) H 11/04/16 05:40 Fibrinogen 557 mg/dl (211-480) H 10/14/16 09:58 Lupus Anticoagulant see below H 10/14/16 03:00 LA PTT Baseline 55 sec (<=40) H 10/14/16 03:00 dRVVT Confirm Interp Negative (Negative) 10/14/16 03:00 POC ABG pH 7.410 (7.35-7.45) 10/28/16 12:51 POC ABG pCO2 37.8 (35-45) 10/28/16 12:51 POC ABG pO2 93 (80-105) 10/28/16 12:51 POC ABG HCO3 24.0 10/28/16 12:51 POC ABG Total CO2 25 10/28/16 12:51 POC ABG O2 Sat 97 10/28/16 12:51 POC ABG Base Excess -1 10/28/16 12:51 FiO2 25 % 10/28/16 12:51 Sodium 136 mmol/L (137-145) L 11/03/16 03:25 Potassium 4.9 mmol/L (3.6-5.0) 11/03/16 03:25 Chloride 94.6 mmol/L (98-107) L 11/03/16 03:25 Carbon Dioxide 21 mmol/L (22-30) L 11/03/16 03:25 Anion Gap 25 mmol/L 11/03/16 03:25 BUN 84 mg/dL (9-20) H 11/03/16 03:25 Creatinine 3.2 mg/dL (0.8-1.5) H 11/03/16 03:25 Estimated GFR 20 ml/min 11/03/16 03:25 BUN/Creatinine Ratio 26.25 % 11/03/16 03:25 Glucose 116 mg/dL (75-100) H 11/03/16 03:25 POC Glucose 105 (70-105) 11/04/16 05:13 Lactic Acid 3.10 mmol/L (0.7-2.0) H* 11/01/16 20:55 Uric Acid 8.0 mg/dL (3.5-7.6) H 10/14/16 03:00 Calcium 7.0 mg/dL (8.4-10.2) L 11/03/16 03:25 Phosphorus 5.80 mg/dL (2.5-4.5) H 11/03/16 03:25 Iron 146 ug/dL (49-181) 10/15/16 05:35 TIBC 166 mcg/dL (250-450) L 10/15/16 05:35 Erythropoietin 148.2 mIU/mL (2.6-18.5) H 10/19/16 14:15 Ferritin 9562.0 ng/mL (13.0-400.0) H 10/15/16 05:35 Total Bilirubin 2.10 mg/dL (0.1-1.2) H 10/24/16 07:00 Direct Bilirubin 1.1 mg/dL (0-0.2) H 10/14/16 09:58 Indirect Bilirubin 0.2 mg/dL 10/14/16 09:58 AST 68 units/L (5-40) H 10/24/16 07:00 ALT 46 units/L (7-56) 10/24/16 07:00 Alkaline Phosphatase 224 units/L (35-129) H 10/24/16 07:00 Ammonia 32.0 umol/L (25-60) 10/19/16 14:15 Lactate Dehydrogenase 3871 units/L (91-180) H 10/15/16 05:35 Troponin T 0.079 ng/mL (0.00-0.029) H 10/13/16 10:14 C-Reactive Protein 7.40 mg/dL (0.00-1.30) H 10/24/16 16:30 NT-Pro-B Natriuret Pep > 55181 pg/mL (0-900) H 10/13/16 10:14 Serum Total Protein 5.6 g/dL (6.1-8.1) L 10/13/16 14:50 Total Protein 4.8 g/dL (6.3-8.2) L 10/24/16 07:00 Albumin 2.3 g/dL (3.9-5) L 10/24/16 07:00 Albumin/Globulin Ratio 0.9 % 10/24/16 07:00 Pltvb-1-Srsgfkyzz 0.5 g/dL (0.2-0.3) H 10/13/16 14:50 Xjath-8-Efnmonlrw 0.6 g/dL (0.5-0.9) 10/13/16 14:50 Beta Globulins 0.3 g/dL (0.2-0.5) 10/13/16 14:50 Gamma Globulins 1.7 g/dL (0.8-1.7) 10/13/16 14:50 Abnorm Protein Band 1 1.4 g/dL H 10/13/16 14:50 PEP Interpretation see below H 10/13/16 14:50 Triglycerides 119 mg/dL (2-149) 10/13/16 10:14 Cholesterol 71 mg/dL (50-199) 10/13/16 10:14 LDL Cholesterol Direct 41 mg/dL (50-130) L 10/13/16 10:14 HDL Cholesterol 7 mg/dL (40-59) L 10/13/16 10:14 Cholesterol/HDL Ratio 10.14 % 10/13/16 10:14 Lipase 21 units/L (13-60) 10/15/16 05:35 Vitamin B12 893.9 pg/mL (211-911) 10/14/16 03:00 TSH 0.526 mlU/mL (0.270-4.200) 10/19/16 14:15 Random Vancomycin 19.2 ug/mL (0-40.0) 11/01/16 06:00 IgG 1040 mg/dL (694-1618) 10/19/16 14:15 IgA 149 mg/dL (81-463) 10/19/16 14:15 IgM 53 mg/dL (48-271) 10/19/16 14:15 XU Screen Negative (Negative) 10/13/16 14:50 Proteinase 3 (PR3) Ab <1.0 AI (<1.0) 10/13/16 14:50 Myeloperoxidase Ab <1.0 AI (<1.0) 10/13/16 14:50 Glomerular Base Mem IgG <1.0 AI (<1.0) 10/13/16 14:50 Complement C3 101 mg/dL (90-180) 10/13/16 14:50 Complement C4 16 mg/dL (16-47) 10/13/16 14:50 Hep Bs Antigen Non-reactive (Negative) 10/13/16 14:50 Hepatitis C Antibody Non-reactive (NonReactive) 10/13/16 14:50 HIV 1&2 Antibody Rapid Non react (Non React) 10/13/16 14:50 HIV P24 Antigen Non react (Non React) 10/13/16 14:50 Schistocytes Smear None seen 10/15/16 12:00 Flow Intrp 16+ Markers Scanned into [facility] rec 10/14/16 11:30 Flow Cytometry Interp Scanned into [facility] rec 10/14/16 11:30 Miscellaneous Test Flexitest 1 10/26/16 06:15 Blood Type O POSITIVE 11/03/16 13:02 Antibody Screen TNR 11/03/16 13:02 MADIHA Antibody Screen Negative 11/03/16 13:02 Direct Antiglob Test Negative 10/14/16 03:00 ELAINE, Poly Interpret Negative 10/14/16 03:00 Crossmatch See Detail 11/03/16 13:02
[2016-11-04 15:38] LABS: ISTAT Base Excess -2; ISTAT HCO3 22.9; ISTAT PH 7.423 (7.35-7.45); ISTAT PO2 107 (80-105); ISTAT SO2 98; ISTAT TCO2 24
[2016-11-04] MEDS ORDERED: NACL 0.9% 1000 ML 1,000 ML ONE (18:10)
--- NOTE | 2016-11-05 00:07 | Consultation ---
History of Present Illness - Reason for Consult Consult date: 11/04/16 - History of Present Illness Patient seen/examine, labs reviewed, clinically unchanged. Past History Past Medical History: hypertension, other (Had shingles in November 27-) Past Surgical History: No surgical history Social history: , full code, other (Patienti s and lives with his ). denies: smoking, alcohol abuse, prescription drug abuse, IV drug use Family history: no significant family history Medications and Allergies Allergies Allergy/AdvReac Type Severity Reaction Status Date / Time No Known Allergies Allergy Unverified 10/13/16 09:41 Home Medications Medication Instructions Recorded Confirmed Last Taken Type Naproxen Sodium [Aleve TAB] 2 tab PO Q8H PRN 10/13/16 10/13/16 10/12/16 14:00 History Active Meds: Active Medications Acetaminophen (Tylenol) 1,000 mg NE Q4H PRN PRN Reason: Pain, Mild (1-3) Last Admin: 10/20/16 15:40 Dose: 1,000 mg Acetaminophen (Tylenol) 650 mg FEEDTUBE Q6H PRN PRN Reason: Pain, Mild (1-3) Last Admin: 10/24/16 10:56 Dose: 650 mg Alteplase, Recombinant (Cathflo) 4 mg IV ROD PRN PRN Reason: hemodialysis Last Admin: 11/02/16 09:37 Dose: 4 mg Lipase/Protease/Amylase (Pancreaze Dr 10,500 Unit) 1 each FEEDTUBE PRN PRN PRN Reason: For Clogged Feeding Tube Dextrose (D50w (25gm)) 25 ml IV PRN PRN PRN Reason: Hypoglycemia Last Admin: 10/18/16 07:20 Dose: 25 ml Diphenhydramine HCl (Benadryl) 50 mg IV Q6H PRN PRN Reason: Itching Last Admin: 10/24/16 10:57 Dose: 50 mg Famotidine (Pepcid) 20 mg PO Q24H EDWINA Last Admin: 11/04/16 12:34 Dose: 20 mg Haloperidol Lactate (Haldol) 5 mg IM Q6H PRN PRN Reason: Agitation Last Admin: 10/14/16 21:11 Dose: 5 mg Heparin Sodium (Porcine) (Heparin) 10,000 unit IV ROD PRN PRN Reason: for plasmapheresis- vascath Last Admin: 11/03/16 17:49 Dose: 10,000 unit Hydrocortisone Sodium Succinate (Solu-Cortef) 60 mg IV BID [facility] Stop: 11/05/16 22:01 Hydrocortisone Sodium Succinate (Solu-Cortef) 60 mg IV DAILY [facility] Stop: 11/06/16 10:01 Hydrophilic Ointment (Vaseline Lip Therapy) 1 applic TP Q2H PRN PRN Reason: Dry Lips Propofol (Diprivan 10 Mg/Ml) 1,000 mg in 100 mls @ 1.827 mls/hr IV TITR EDWINA; 5 MCG/KG/MIN PRN Reason: Protocol Last Titration: 10/20/16 10:12 Dose: 0 mcg/kg/min, 0 mls/hr Fentanyl Citrate (Fentanyl Drip Premix) 2,000 mcg in 100 mls @ 3.045 mls/hr IV TITR EDWINA; 1 MCG/KG/HR PRN Reason: Protocol Sodium Chloride (Nacl 0.9%) 100 mls @ 999 mls/hr IV ROD PRN PRN Reason: Hypotension Insulin Aspart (Novolog) 0 units SUB-Q Q6HR EDWINA PRN Reason: Protocol Last Admin: 11/04/16 18:31 Dose: Not Given Labetalol HCl (Normodyne) 20 mg IV Q6H PRN PRN Reason: Hypertension Last Admin: 10/25/16 05:33 Dose: 20 mg Loperamide HCl (Imodium A-D) 2 mg PO Q2H PRN PRN Reason: Diarrhea Last Admin: 11/03/16 14:09 Dose: 2 mg Metoprolol Tartrate (Lopressor) 25 mg PO BID [facility] Last Admin: 11/04/16 22:51 Dose: 25 mg Multi-Ingred Cream/Lotion/Oil/Oint (Artificial Tears Ophth Oint) 1 applic OU Q4H PRN PRN Reason: Dry Eye(s) Ondansetron HCl (Zofran) 4 mg IV Q8H PRN PRN Reason: Nausea And Vomiting Phytonadione (Vitamin K *Oral Liquid*) 10 mg FEEDTUBE DAILY [facility] Stop: 11/06/16 13:59 Simple Syrup (Simple Syrup) 15 ml FEEDTUBE PRN PRN PRN Reason: Hypoglycemia Simple Syrup (Simple Syrup) 30 ml FEEDTUBE PRN PRN PRN Reason: Hypoglycemia Sodium Bicarbonate (Sodium Bicarbonate) 325 mg FEEDTUBE PRN PRN PRN Reason: For Clogged Feeding Tube Last Admin: 11/02/16 11:08 Dose: 325 mg Sodium Chloride (Sodium Chloride Flush Syringe 10 Ml) 10 ml IV PRN PRN PRN Reason: LINE FLUSH Last Admin: 10/17/16 20:45 Dose: 10 ml Exam - Constitutional Vitals: Temp Pulse Resp BP Pulse Ox 99.4 F 94 H 22 89/65 100 11/04/16 20:00 11/04/16 23:30 11/04/16 23:30 11/04/16 23:30 11/04/16 23:30 General appearance: Present: severe distress - EENT Eyes: Present: PERRL ENT: hearing intact, clear oral mucosa - Neck Neck: Present: supple, normal ROM - Cardiovascular Heart Sounds: Present: S1 & S2. Absent: rub, click - Extremities Extremities: pulses symmetrical, No edema Peripheral Pulses: within normal limits - Abdominal General gastrointestinal: Present: soft, non-tender, non-distended, normal bowel sounds Male genitourinary: Present: deferred - Rectal Rectal Exam: deferred - Integumentary Integumentary: Present: clear, warm, dry - Neurologic Neurologic: moves all extremities Results - Labs CBC & Chem 7: 11/03/16 03:25 11/03/16 03:25 Labs: Abnormal lab results 11/03/16 11/04/16 11/04/16 Range/Units 11:05 00:27 05:40 PT 20.3 H (12.2-14.9) Sec. INR 1.74 H (0.87-1.13) POC ABG pO2 (80-105) POC Glucose 165 H 108 H (70-105) 11/04/16 11/04/16 Range/Units 14:48 17:58 PT (12.2-14.9) Sec. INR (0.87-1.13) POC ABG pO2 107 H (80-105) POC Glucose 106 H (70-105) Assessment and Plan - Patient Problems (1) Anemia Current Visit: Yes Status: Acute Qualifiers: Anemia type: unspecified type Iron deficiency anemia type: I Vitamin B12 deficiency anemia type: V Folate deficiency anemia type: F Bone marrow failure anemia type: B Hemolytic anemia type: H Other causes of anemia: O Chronic kidney disease stage: C Qualified Code(s): D64.9 - Anemia, unspecified Plan to address problem: will replace if less than 7.0 (2) Leucopenia Current Visit: Yes Status: Acute Qualifiers: Leukopenia type: unspecified Neutropenia type: N Qualified Code(s): D72.819 - Decreased white blood cell count, unspecified Plan to address problem: same as above. resolved. Same as above (3) Renal failure Current Visit: Yes Status: Acute Qualifiers: Renal failure chronicity: acute Acute renal failure type: unspecified Chronic kidney disease stage: C Qualified Code(s): N17.9 - Acute kidney failure, unspecified Plan to address problem: See w/up, and renal service. see notes Follow mapping specialist.
[2016-11-05 05:42] LABS: Hematocrit 24.6 % (35.5-45.6); Hemoglobin 8.1 gm/dl (11.8-15.2); Mean Corpuscular HGB Conc 33 % (32-34); Mean Corpuscular Hemoglobin 31 pg (28-32); Mean Corpuscular Volume 95 fl (84-94); Red Cell Distribution Width 16.4 % (13.2-15.2); White Blood Count 6.6 K/mm3 (4.5-11.0)
[2016-11-05 05:59] LABS: Calcium 7.3 mg/dL (8.4-10.2); Chloride 98.5 mmol/L (98-107); Potassium 3.7 mmol/L (3.6-5.0)
[2016-11-05] MEDS: NOVOLOG SUB-Q SCH ×4 (06:12→18:32)
[2016-11-05 06:34] LABS: Basophils % (Manual) 0 % (0.0-1.8); Blastocytes % (Manual) 0 %; Eosinophils % (Manual) 0 % (0.0-4.3)
[2016-11-05 06:35] LABS: Anisocytosis 1+
[2016-11-05 06:36] LABS: Diff Status Complete; Elliptocytes 1+; Large Platelets 1+; Platelet Estimate Appears Decreased
[2016-11-05] MEDS: LOPRESSOR PO SCH (09:15)
[2016-11-05] MEDS: PEPCID PO SCH (09:15)
[2016-11-05] MEDS: VITAMIN K *ORAL LIQUID FEEDTUBE SCH (09:15)
[2016-11-05 09:29] LABS: Platelet Count 34 K/mm3 (140-440)
--- NOTE | 2016-11-05 12:15 | Progress Note ---
Assessment and Plan Assessment and plan: Patient is a 61-year-old man without known past medical history who presented to the emergency department [facility] on 10/13/16, complaining of bilateral leg swelling that worsened for the last 4 days. He was found to have severe metabolic acidosis, creatinine was 14.5 with hyperkalemia, emergent Hemodialysis was done. He was also found to have severe pancytopenia, thrombocytopenia and Dr. 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 He was on bipap and was intubated 10/16/16, details are not readily available on why he needed to be intubated, no nursing note for 10/16. -Acute encephalopathy, not sedated, see Neurologist note below -AFIB WITH RVR: Cardiology is following -Group B strep bacteremia: JONATHAN done on 10/27/16 but plt count too low, probably when plt count over 50k -Acute Respiratory failure with hypoxia, intubated: continue mv -Pancytopenia [leukopenia, severe anemia, Woresening thrombocytopenia] heme/onc is following, s/p PLASMAPHERSIS, s/p PRBC transfusion, s/p plt -ARF, renal tubular stasis, poa -secondary coagulopathy -Lactic acidosis -Probable TTP, await [id number] results -hypoglycemia -Acute systolic congestive heart failure EF around 30% -SEVERE SEPSIS, poa per Neurologist, Dr. Bernardo "61 YO M Hx HTN admitted 10/13 w/ sepsis w/ bacteremia, severe metabolic acidosis , RAJESH requiring emergent HD, severe pancytopenia, ? DIC vs. HUS vs. TTP on Plasmapheresis and acute respiratory failure with hypoxia s/p intubation. There has not been cleared documented episode of cardiac arrest but pt was hypotensive during admission. On exam eyes open to stimlation, stuporous MS poor concentration, paucity of speech, intact brainstem reflexes but not able to follow midline/peripheral commands w/ grossly intact motor-sensory exam as withdraws from pain in UE but triple flexion LE but otherwise grossly intact symmetric neurologic exam, consistent with toxic metabolic infectious derangement as the etiology for neurologic decompensation. CTH 10/13 vague L anterior internal capsule hypodensities and chronic lacunes L brainstem and L periventricular white matter. B12/TSH/NH4 normal. 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 No Stone dispensed d/t RAJESH. TTE w/o endocarditis/thrombus. Recommendations: 1. Check f/u CTH and CTA H/N 2. Cont Infectious work up/medical management for UTI, PNA, cellulitis, bacteremia, etc. 3. Avoid hyponatremia, hypo/hyper-calcemia, hypo/hyperglycemia, acidosis, hypoxia/hypoxemia, hypercarbia/hypercapnia 4. Avoid institution of any psychoactive medications (e.g. antihistamines, anticholinergics, BZD, hypnotics, opiates) as able unless low doses of low potency antipsychotic needed for behavioral issues complicating medical care 5. Thiamine/Folate/CIWA protocol accordingly for any hx obtained to suggest EtOH withdrawal 6. Cont home meds-there is no neurologic indication to change CTH confirms multifocal hemorrhagic lesions but no midline shift/compression of brain structures/significant mass effect and is actually improved from prior MRI. CTA H/N w/o vascular lesion. JONATHAN w/o endocarditis or source of emboli. 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 Recs: 1. Avoid all blood thinners until hemorrhage stable 2. BP control: goal < 140/90 using prn Labetalol/Hydralyzine/Nicardipine. Cont home BP med. 3. Cont Infectious work up/medical management for UTI, PNA, cellulitis, bacteremia, etc. 3. Avoid hyponatremia, hypo/hyper-calcemia, hypo/hyperglycemia, acidosis, hypoxia/hypoxemia, hypercarbia/hypercapnia 4. Avoid institution of any psychoactive medications (e.g. antihistamines, anticholinergics, BZD, hypnotics, opiates) as able unless low doses of low potency antipsychotic needed for behavioral issues complicating medical care 5. Thiamine/Folate/CIWA protocol accordingly for any hx obtained to suggest EtOH withdrawal 6. Cont home meds-there is no neurologic indication to change 7. DVT Prophylaxis: SCDs/TEDs 8. Dispo: PT/OT/CM evaluations" Trach and peg done drop in HCt, transfuse prbc and repeat h/h 11/05/16: pt count dropped to 34, renal function much improved, h/h steady, continue to monitor. History Interval history: Patient seen and examined. Follow up on respiratory failure, patient still intubated. Overnight uneventful. No cp, sob, n/v or severe headaches. Imaging, old records, testing, labs, nursing notes reviewed. Hospitalist Physical - Physical exam Narrative exam: GEN: Critically ill intubated but not sedated HEENT: Eyes are floating,trach in place CVS: irregular, NORMAL S1S2 LUNGS/CHEST: NORMAL CHEST EXPANSION B, GOOD AIR ENTRY B ABD: SOFT, peg in place POSITIVE BOWEL SOUNDS, NONDISTENDED, NO REBOUND OR GUARDING NEURO: CN 2-12 GROSSLY INTACT, he doesn't follow commands PSY: Unresponsive - Constitutional Vitals: Temp Pulse Resp BP Pulse Ox 99.3 F 94 H 27 H 108/80 99 11/05/16 08:00 11/05/16 11:48 11/05/16 11:48 11/05/16 11:48 11/05/16 11:48 General appearance: Absent: severe distress Results - Labs CBC & Chem 7: 11/05/16 05:40 11/05/16 06:00 Labs: Laboratory Last Values WBC 6.6 K/mm3 (4.5-11.0) 11/05/16 05:40 RBC 2.60 M/mm3 (3.65-5.03) L 11/05/16 05:40 Hgb 8.1 gm/dl (11.8-15.2) L 11/05/16 05:40 Hct 24.6 % (35.5-45.6) L 11/05/16 05:40 MCV 95 fl (84-94) H 11/05/16 05:40 MCH 31 pg (28-32) 11/05/16 05:40 MCHC 33 % (32-34) 11/05/16 05:40 RDW 16.4 % (13.2-15.2) H 11/05/16 05:40 Plt Count 34 K/mm3 (140-440) L 11/05/16 05:40 Lymph % (Auto) Ui Lead Developer 10/14/16 04:34 Overton % (Auto) Ui Lead Developer 10/14/16 04:34 Eos % (Auto) Ui Lead Developer 10/14/16 04:34 Baso % (Auto) Ui Lead Developer 10/14/16 04:34 Lymph # Ui Lead Developer 10/14/16 04:34 [place]ton # Ui Lead Developer 10/14/16 04:34 Eos # Ui Lead Developer 10/14/16 04:34 Baso # Ui Lead Developer 10/14/16 04:34 Add Manual Diff Complete 11/05/16 05:40 Total Counted 100 11/05/16 05:40 Seg Neutrophils % Ui Lead Developer 11/03/16 03:25 Seg Neuts % (Manual) 44.0 % (40.0-70.0) 11/05/16 05:40 Band Neutrophils % 54.0 % 11/05/16 05:40 Lymphocytes % (Manual) 1.0 % (13.4-35.0) L 11/05/16 05:40 Reactive Lymphs % (Man) 0 % 11/05/16 05:40 Monocytes % (Manual) 1.0 % (0.0-7.3) 11/05/16 05:40 Eosinophils % (Manual) 0 % (0.0-4.3) 11/05/16 05:40 Basophils % (Manual) 0 % (0.0-1.8) 11/05/16 05:40 Metamyelocytes % 0 % 11/05/16 05:40 Myelocytes % 0 % 11/05/16 05:40 Promyelocytes % 0 % 11/05/16 05:40 Blast Cells % 0 % 11/05/16 05:40 Nucleated RBC % Not Reportable 11/05/16 05:40 Seg Neutrophils # Ui Lead Developer 10/14/16 04:34 Seg Neutrophils # Man 2.9 K/mm3 (1.8-7.7) 11/05/16 05:40 Band Neutrophils # 3.6 K/mm3 11/05/16 05:40 Lymphocytes # (Manual) 0.1 K/mm3 (1.2-5.4) L 11/05/16 05:40 Abs React Lymphs (Man) 0.0 K/mm3 11/05/16 05:40 Monocytes # (Manual) 0.1 K/mm3 (0.0-0.8) 11/05/16 05:40 Eosinophils # (Manual) 0.0 K/mm3 (0.0-0.4) 11/05/16 05:40 Basophils # (Manual) 0.0 K/mm3 (0.0-0.1) 11/05/16 05:40 Metamyelocytes # 0.0 K/mm3 11/05/16 05:40 Myelocytes # 0.0 K/mm3 11/05/16 05:40 Promyelocytes # 0.0 K/mm3 11/05/16 05:40 Blast Cells # 0.0 K/mm3 11/05/16 05:40 WBC Morphology Not Reportable 11/05/16 05:40 Hypersegmented Neuts Not Reportable 11/05/16 05:40 Hyposegmented Neuts Not Reportable 11/05/16 05:40 Hypogranular Neuts Not Reportable 11/05/16 05:40 Smudge Cells Not Reportable 11/05/16 05:40 Toxic Granulation Not Reportable 11/05/16 05:40 Toxic Vacuolation Not Reportable 11/05/16 05:40 Dohle Bodies Not Reportable 11/05/16 05:40 Pelger-Huet Anomaly Not Reportable 11/05/16 05:40 Madhu Rods Not Reportable 11/05/16 05:40 Platelet Estimate Appears decreased 11/05/16 05:40 Clumped Platelets Not Reportable 11/05/16 05:40 Plt Clumps, EDTA Not Reportable 11/05/16 05:40 Large Platelets 1+ 11/05/16 05:40 Giant Platelets Not Reportable 11/05/16 05:40 Platelet Satelliting Not Reportable 11/05/16 05:40 Plt Morphology Comment Not Reportable 11/05/16 05:40 RBC Morphology Not Reportable 11/05/16 05:40 Dimorphic RBCs Not Reportable 11/05/16 05:40 Polychromasia Not Reportable 11/05/16 05:40 Hypochromasia Not Reportable 11/05/16 05:40 Poikilocytosis Not Reportable 11/05/16 05:40 Basophilic Stippling Rare 10/21/16 10:30 Anisocytosis 1+ 11/05/16 05:40 Microcytosis Not Reportable 11/05/16 05:40 Macrocytosis Not Reportable 11/05/16 05:40 Spherocytes Not Reportable 11/05/16 05:40 Pappenheimer Bodies Not Reportable 11/05/16 05:40 Sickle Cells Not Reportable 11/05/16 05:40 Target Cells Not Reportable 11/05/16 05:40 Tear Drop Cells Not Reportable 11/05/16 05:40 Ovalocytes Not Reportable 11/05/16 05:40 Stomatocytes Few 10/28/16 05:45 Helmet Cells Not Reportable 11/05/16 05:40 [place] Bodies Not Reportable 11/05/16 05:40 [place] Rings Not Reportable 11/05/16 05:40 Sabrina Cells Not Reportable 11/05/16 05:40 Bite Cells Not Reportable 11/05/16 05:40 Crenated Cell Not Reportable 11/05/16 05:40 Elliptocytes 1+ 11/05/16 05:40 Acanthocytes (Spur) Not Reportable 11/05/16 05:40 Rouleaux Not Reportable 11/05/16 05:40 Hemoglobin C Crystals Not Reportable 11/05/16 05:40 Schistocytes Not Reportable 11/05/16 05:40 Malaria parasites Not Reportable 11/05/16 05:40 ESR 77 mm/Hr (0-20) 10/14/16 04:34 Pal Bodies Not Reportable 11/05/16 05:40 Haptoglobin <15 mg/dL (43-212) L 10/15/16 12:00 Hem Pathologist Commnt No 11/05/16 05:40 PT 20.3 Sec. (12.2-14.9) H 11/04/16 05:40 INR 1.74 (0.87-1.13) H 11/04/16 05:40 Fibrinogen 557 mg/dl (211-480) H 10/14/16 09:58 Lupus Anticoagulant see below H 10/14/16 03:00 LA PTT Baseline 55 sec (<=40) H 10/14/16 03:00 dRVVT Confirm Interp Negative (Negative) 10/14/16 03:00 POC ABG pH 7.423 (7.35-7.45) 11/04/16 14:48 POC ABG pCO2 35.0 (35-45) 11/04/16 14:48 POC ABG pO2 107 (80-105) H 11/04/16 14:48 POC ABG HCO3 22.9 11/04/16 14:48 POC ABG Total CO2 24 11/04/16 14:48 POC ABG O2 Sat 98 11/04/16 14:48 POC ABG Base Excess -2 11/04/16 14:48 FiO2 28 % 11/04/16 14:48 Sodium 140 mmol/L (137-145) 11/05/16 06:00 Potassium 3.7 mmol/L (3.6-5.0) D 11/05/16 06:00 Chloride 98.5 mmol/L (98-107) 11/05/16 06:00 Carbon Dioxide 25 mmol/L (22-30) 11/05/16 06:00 Anion Gap 20 mmol/L 11/05/16 06:00 BUN 46 mg/dL (9-20) H 11/05/16 06:00 Creatinine 2.0 mg/dL (0.8-1.5) H 11/05/16 06:00 Estimated GFR 34 ml/min 11/05/16 06:00 BUN/Creatinine Ratio 23.00 % 11/05/16 06:00 Glucose 166 mg/dL (75-100) H 11/05/16 06:00 POC Glucose 143 (70-105) H 11/05/16 04:55 Lactic Acid 3.10 mmol/L (0.7-2.0) H* 11/01/16 20:55 Uric Acid 8.0 mg/dL (3.5-7.6) H 10/14/16 03:00 Calcium 7.3 mg/dL (8.4-10.2) L 11/05/16 06:00 Phosphorus 5.80 mg/dL (2.5-4.5) H 11/03/16 03:25 Iron 146 ug/dL (49-181) 10/15/16 05:35 TIBC 166 mcg/dL (250-450) L 10/15/16 05:35 Erythropoietin 148.2 mIU/mL (2.6-18.5) H 10/19/16 14:15 Ferritin 9562.0 ng/mL (13.0-400.0) H 10/15/16 05:35 Total Bilirubin 2.10 mg/dL (0.1-1.2) H 10/24/16 07:00 Direct Bilirubin 1.1 mg/dL (0-0.2) H 10/14/16 09:58 Indirect Bilirubin 0.2 mg/dL 10/14/16 09:58 AST 68 units/L (5-40) H 10/24/16 07:00 ALT 46 units/L (7-56) 10/24/16 07:00 Alkaline Phosphatase 224 units/L (35-129) H 10/24/16 07:00 Ammonia 32.0 umol/L (25-60) 10/19/16 14:15 Lactate Dehydrogenase 3871 units/L (91-180) H 10/15/16 05:35 Troponin T 0.079 ng/mL (0.00-0.029) H 10/13/16 10:14 C-Reactive Protein 7.40 mg/dL (0.00-1.30) H 10/24/16 16:30 NT-Pro-B Natriuret Pep > 25867 pg/mL (0-900) H 10/13/16 10:14 Serum Total Protein 5.6 g/dL (6.1-8.1) L 10/13/16 14:50 Total Protein 4.8 g/dL (6.3-8.2) L 10/24/16 07:00 Albumin 2.3 g/dL (3.9-5) L 10/24/16 07:00 Albumin/Globulin Ratio 0.9 % 10/24/16 07:00 Suctu-0-Dxqsmkttb 0.5 g/dL (0.2-0.3) H 10/13/16 14:50 Tfuce-2-Psalglqzj 0.6 g/dL (0.5-0.9) 10/13/16 14:50 Beta Globulins 0.3 g/dL (0.2-0.5) 10/13/16 14:50 Gamma Globulins 1.7 g/dL (0.8-1.7) 10/13/16 14:50 Abnorm Protein Band 1 1.4 g/dL H 10/13/16 14:50 PEP Interpretation see below H 10/13/16 14:50 Triglycerides 119 mg/dL (2-149) 10/13/16 10:14 Cholesterol 71 mg/dL (50-199) 10/13/16 10:14 LDL Cholesterol Direct 41 mg/dL (50-130) L 10/13/16 10:14 HDL Cholesterol 7 mg/dL (40-59) L 10/13/16 10:14 Cholesterol/HDL Ratio 10.14 % 10/13/16 10:14 Lipase 21 units/L (13-60) 10/15/16 05:35 Vitamin B12 893.9 pg/mL (211-911) 10/14/16 03:00 TSH 0.526 mlU/mL (0.270-4.200) 10/19/16 14:15 Random Vancomycin 19.2 ug/mL (0-40.0) 11/01/16 06:00 IgG 1040 mg/dL (694-1618) 10/19/16 14:15 IgA 149 mg/dL (81-463) 10/19/16 14:15 IgM 53 mg/dL (48-271) 10/19/16 14:15 XU Screen Negative (Negative) 10/13/16 14:50 Proteinase 3 (PR3) Ab <1.0 AI (<1.0) 10/13/16 14:50 Myeloperoxidase Ab <1.0 AI (<1.0) 10/13/16 14:50 Glomerular Base Mem IgG <1.0 AI (<1.0) 10/13/16 14:50 Complement C3 101 mg/dL (90-180) 10/13/16 14:50 Complement C4 16 mg/dL (16-47) 10/13/16 14:50 Hep Bs Antigen Non-reactive (Negative) 10/13/16 14:50 Hepatitis C Antibody Non-reactive (NonReactive) 10/13/16 14:50 HIV 1&2 Antibody Rapid Non react (Non React) 10/13/16 14:50 HIV P24 Antigen Non react (Non React) 10/13/16 14:50 Schistocytes Smear None seen 10/15/16 12:00 Flow Intrp 16+ Markers Scanned into [facility] rec 10/14/16 11:30 Flow Cytometry Interp Scanned into [facility] rec 10/14/16 11:30 Miscellaneous Test Flexitest 1 10/26/16 06:15 Blood Type O POSITIVE 11/03/16 13:02 Antibody Screen TNR 11/03/16 13:02 MADIHA Antibody Screen Negative 11/03/16 13:02 Direct Antiglob Test Negative 10/14/16 03:00 ELAINE, Poly Interpret Negative 10/14/16 03:00 Crossmatch See Detail 11/03/16 13:02
--- NOTE | 2016-11-05 13:09 | Progress Note ---
Assessment and Plan - Patient Problems (1) Thrombocytopenia Current Visit: Yes Status: Acute Plan to address problem: Hematology on board, awaiting [id number] level, follow up Hematology recs (2) Acute renal failure Current Visit: Yes Status: Acute Qualifiers: Acute renal failure type: A Plan to address problem: Renal function reviewed, SCr level was 2.0 today, SCr level on 11/03/16 was 3.2 Status post Hemodialysis yesterday for ultrafiltration and clearance No indication for HD today Assess need for HD on daily basis Renally dose medications Obtain daily weight Strict intake and output Renal plan discussed with Dr Marin Continue supportive therapy (3) Acute respiratory failure Current Visit: Yes Status: Acute Qualifiers: Respiratory failure complication: hypoxia Qualified Code(s): J96.01 - Acute respiratory failure with hypoxia Plan to address problem: Pulmonology on board, Trach in place, vent management, follow up recs (4) Anemia Current Visit: Yes Status: Acute Qualifiers: Anemia type: unspecified type Iron deficiency anemia type: I Vitamin B12 deficiency anemia type: V Folate deficiency anemia type: F Bone marrow failure anemia type: B Hemolytic anemia type: H Other causes of anemia: O Chronic kidney disease stage: C Qualified Code(s): D64.9 - Anemia, unspecified Plan to address problem: Hematology on board, follow up recs Subjective Date of service: 11/05/16 Principal diagnosis: Sepsis Syndrome; MAHA; RAJESH; CHF; TTP Interval history: Patient unresponsive, on ventilator via Trach. No family at bedside Objective - Vital Signs Vital signs: Vital Signs - 12hr 11/05/16 11/05/16 11/05/16 01:31 02:00 02:31 Temperature Pulse Rate 93 H 92 H 95 H Respiratory 18 18 19 Rate Blood Pressure 92/69 89/64 89/64 O2 Sat by Pulse 97 97 98 Oximetry O2 Sat by Pulse Oximetry [ Assessment] 11/05/16 11/05/16 11/05/16 03:00 03:31 04:00 Temperature 99.7 F H Pulse Rate 95 H 93 H 96 H Respiratory 19 18 20 Rate Blood Pressure 91/62 91/62 96/71 O2 Sat by Pulse 98 97 97 Oximetry O2 Sat by Pulse Oximetry [ Assessment] 11/05/16 11/05/16 11/05/16 04:31 04:45 05:00 Temperature Pulse Rate 95 H 96 H 92 H Respiratory 13 18 Rate Blood Pressure 96/71 96/71 89/60 O2 Sat by Pulse 97 98 97 Oximetry O2 Sat by Pulse Oximetry [ Assessment] 11/05/16 11/05/16 11/05/16 05:31 06:00 06:31 Temperature Pulse Rate 92 H 93 H 93 H Respiratory 18 18 18 Rate Blood Pressure 89/60 99/67 99/67 O2 Sat by Pulse 98 97 98 Oximetry O2 Sat by Pulse Oximetry [ Assessment] 11/05/16 11/05/16 11/05/16 07:00 07:31 07:55 Temperature Pulse Rate 96 H 99 H 98 H Respiratory 18 19 29 H Rate Blood Pressure 104/75 104/75 104/75 O2 Sat by Pulse 98 98 Oximetry O2 Sat by Pulse Oximetry [ Assessment] 11/05/16 11/05/16 11/05/16 07:59 08:00 08:30 Temperature 99.3 F Pulse Rate 96 H 98 H Respiratory 22 24 Rate Blood Pressure 97/68 102/71 O2 Sat by Pulse 99 98 Oximetry O2 Sat by Pulse 99 Oximetry [ Assessment] 11/05/16 11/05/16 11/05/16 09:00 09:30 10:00 Temperature Pulse Rate 103 H 97 H 92 H Respiratory 25 H 25 H 28 H Rate Blood Pressure 111/81 114/77 101/72 O2 Sat by Pulse 98 96 98 Oximetry O2 Sat by Pulse Oximetry [ Assessment] 11/05/16 11/05/16 11/05/16 10:30 11:00 11:48 Temperature Pulse Rate 90 94 H 94 H Respiratory 23 26 H 27 H Rate Blood Pressure 99/71 108/80 108/80 O2 Sat by Pulse 97 99 99 Oximetry O2 Sat by Pulse Oximetry [ Assessment] - General Appearance General appearance: intubated (on ventilator) EENT: ATNC Neck: no JVD Respiratory: Present: Other (Lung sounds decreased bilaterally, Trach in place- on ventilator) Cardiology: S1S2, other (ACCESS: Right Vas Catheter intact) Gastrointestinal: normoactive bowel sounds (PEG tube intact) Integumentary: other (Right hand skin abrasion noted; left arm wound with dressing in place, bilateral lower extremity wound with dressing in place) Neurologic: other (intubated via Trach- unresponsive) Musculoskeletal: other (1+ edema to both lower extremities) - Lab 11/05/16 05:40 11/05/16 06:00 Most recent lab results Calcium 7.3 mg/dL (8.4-10.2) L 11/05/16 06:00 Phosphorus 5.80 mg/dL (2.5-4.5) H 11/03/16 03:25
--- NOTE | 2016-11-05 14:03 | Progress Note ---
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 - continue HD/UF per nephrology recs - follow I's and O's (no urine in do bag) - correct electrolytes prn - avoid nephrotoxins - per nephrology otherwise (3) Metabolic acidosis Current Visit: Yes Status: Acute Plan to address problem: - mixed etiology - Lactic Acidosis component resolved - sepsis may have been driving force for that - RAJESH component - continue HD/UF per nephrology prescription - complete Anti-infectives per ID recs (4) CHF (congestive heart failure) Current Visit: Yes Status: Acute Qualifiers: Congestive heart failure type: C Congestive heart failure chronicity: C Plan to address problem: - ECHO consistent with possible infiltrating disease - cardiology consulted - EF 30& - s/p volume resuscitation for sepsis - per cardiology otherwise - JONATHAN negative (5) Pancytopenia Current Visit: Yes Status: Acute Plan to address problem: - hematology on case - continuing plasmapheresis - may need bone marrow evaluation - follow platelet count (seems to be trending back down) (6) Acute encephalopathy Current Visit: Yes Status: Acute Plan to address problem: - CT brain negative - likely toxic-metabolic encephalopathy element also - MRI abnormal - neurology evaluation ongoing - following clinically (7) Hypoglycemia Current Visit: Yes Status: Acute Plan to address problem: - improved - suspect sepsis related element - will continue systemic steroids but taper - also continue enteral nutrition - continue glycemic control via SSI at this point (8) Sepsis syndrome Current Visit: Yes Status: Acute Plan to address problem: - s/p antibiotic course - ID on case - CRP and lactate much improved - JONATHAN negative - following clinically - c-diff assay negative - Anti-infectives per ID recs (de-escalating now) (9) Discharge planning issues Current Visit: Yes Status: Acute Plan to address problem: - he remains critically ill on life sustaining interventions including MVS and at risk for further deterioration including ...32' CCT Subjective Date of service: 11/05/16 Principal diagnosis: Sepsis Syndrome; MAHA; RAJESH; CHF; TTP Interval history: Seen and examined at bedside; 24 hour events reviewed; nursing and respiratory care staff consulted; no adverse overnight events reported to me; tolerating t- piece better; AMS is persistent; no emesis or overt apsiration Objective Vital Signs - 12hr 11/05/16 11/05/16 11/05/16 02:31 03:00 03:31 Temperature Pulse Rate 95 H 95 H 93 H Respiratory 19 19 18 Rate Blood Pressure 89/64 91/62 91/62 O2 Sat by Pulse 98 98 97 Oximetry O2 Sat by Pulse Oximetry [ Assessment] 11/05/16 11/05/16 11/05/16 04:00 04:31 04:45 Temperature 99.7 F H Pulse Rate 96 H 95 H 96 H Respiratory 20 13 Rate Blood Pressure 96/71 96/71 96/71 O2 Sat by Pulse 97 97 98 Oximetry O2 Sat by Pulse Oximetry [ Assessment] 11/05/16 11/05/16 11/05/16 05:00 05:31 06:00 Temperature Pulse Rate 92 H 92 H 93 H Respiratory 18 18 18 Rate Blood Pressure 89/60 89/60 99/67 O2 Sat by Pulse 97 98 97 Oximetry O2 Sat by Pulse Oximetry [ Assessment] 11/05/16 11/05/16 11/05/16 06:31 07:00 07:31 Temperature Pulse Rate 93 H 96 H 99 H Respiratory 18 18 19 Rate Blood Pressure 99/67 104/75 104/75 O2 Sat by Pulse 98 98 Oximetry O2 Sat by Pulse Oximetry [ Assessment] 11/05/16 11/05/16 11/05/16 07:55 07:59 08:00 Temperature 99.3 F Pulse Rate 98 H 96 H Respiratory 29 H 22 Rate Blood Pressure 104/75 97/68 O2 Sat by Pulse 98 99 Oximetry O2 Sat by Pulse 99 Oximetry [ Assessment] 11/05/16 11/05/16 11/05/16 08:30 09:00 09:30 Temperature Pulse Rate 98 H 103 H 97 H Respiratory 24 25 H 25 H Rate Blood Pressure 102/71 111/81 114/77 O2 Sat by Pulse 98 98 96 Oximetry O2 Sat by Pulse Oximetry [ Assessment] 06/03/1411/05/16 11/05/16 10:00 10:30 11:00 Temperature Pulse Rate 92 H 90 94 H Respiratory 28 H 23 26 H Rate Blood Pressure 101/72 99/71 108/80 O2 Sat by Pulse 98 97 99 Oximetry O2 Sat by Pulse Oximetry [ Assessment] 11/05/16 11/05/16 11:48 12:00 Temperature 99.8 F H Pulse Rate 94 H Respiratory 27 H Rate Blood Pressure 108/80 O2 Sat by Pulse 99 Oximetry O2 Sat by Pulse Oximetry [ Assessment] Constitutional: no acute distress, other (lethargic to encephalopathic) Eyes: non-icteric ENT: oropharynx moist Neck: supple, no lymphadenopathy Effort: mildly labored Ascultation: Bilateral: diminished breath sounds, rales Cardiovascular: irregular rhythm Gastrointestinal: normoactive bowel sounds, soft, non-tender, non-distended Integumentary: normal Extremities: no cyanosis, pulses normal, no ischemia or petechiae, edema Neurologic: non-focal exam (grossly), pupils equal and round, unable to assess Psychiatric: other (unable to assess) CBC and BMP: 11/07/16 08:27 11/07/16 08:27 ABG, PT/INR, D-dimer: ABG POC ABG pH 7.423 (7.35-7.45) 11/04/16 14:48 POC ABG pCO2 35.0 (35-45) 11/04/16 14:48 POC ABG pO2 107 (80-105) H 11/04/16 14:48 POC ABG HCO3 22.9 11/04/16 14:48 POC ABG Total CO2 24 11/04/16 14:48 POC ABG O2 Sat 98 11/04/16 14:48 PT/INR, D-dimer PT 20.3 Sec. (12.2-14.9) H 11/04/16 05:40 INR 1.74 (0.87-1.13) H 11/04/16 05:40 Abnormal lab findings: Abnormal Labs 10/13/16 10/13/16 10/13/16 14:50 21:40 22:05 WBC RBC Hgb Hct MCV MCHC RDW Plt Count Seg Neuts % (Manual) Lymphocytes % (Manual) Nucleated RBC % Seg Neutrophils # Man Lymphocytes # (Manual) Haptoglobin PT INR Fibrinogen Lupus Anticoagulant LA PTT Baseline POC ABG pH POC ABG pCO2 POC ABG pO2 Sodium Potassium Chloride Carbon Dioxide BUN Creatinine Glucose POC Glucose 52 L 43 L Lactic Acid Uric Acid Calcium Phosphorus Iron TIBC Erythropoietin Ferritin Total Bilirubin Direct Bilirubin AST ALT Alkaline Phosphatase Lactate Dehydrogenase C-Reactive Protein Serum Total Protein 5.6 L Total Protein Albumin 2.2 L Rkznh-8-Kkwypphbr 0.5 H Abnorm Protein Band 1 1.4 H PEP Interpretation see below H Crossmatch 10/13/16 10/14/16 10/14/16 23:18 03:00 03:00 WBC RBC Hgb Hct MCV MCHC RDW Plt Count Seg Neuts % (Manual) Lymphocytes % (Manual) Nucleated RBC % Seg Neutrophils # Man Lymphocytes # (Manual) Haptoglobin PT INR Fibrinogen Lupus Anticoagulant see below H LA PTT Baseline 55 H POC ABG pH POC ABG pCO2 POC ABG pO2 Sodium Potassium Chloride Carbon Dioxide BUN Creatinine Glucose POC Glucose 113 H Lactic Acid Uric Acid Calcium Phosphorus Iron TIBC Erythropoietin Ferritin Total Bilirubin Direct Bilirubin AST ALT Alkaline Phosphatase Lactate Dehydrogenase 406 H C-Reactive Protein Serum Total Protein Total Protein Albumin Cfjku-4-Ggfkrvzot Abnorm Protein Band 1 PEP Interpretation Crossmatch 10/14/16 10/14/16 10/14/16 03:00 03:00 04:34 WBC 1.3 L* RBC 2.33 L Hgb 7.3 L Hct 21.7 L MCV MCHC RDW 19.8 H Plt Count 99 L Seg Neuts % (Manual) Lymphocytes % (Manual) 3.0 L Nucleated RBC % Seg Neutrophils # Man 0.9 L Lymphocytes # (Manual) 0.0 L Haptoglobin PT INR Fibrinogen Lupus Anticoagulant LA PTT Baseline POC ABG pH POC ABG pCO2 POC ABG pO2 Sodium Potassium Chloride Carbon Dioxide 18 L BUN 73 H Creatinine 9.8 H Glucose 59 L POC Glucose Lactic Acid Uric Acid 8.0 H Calcium 8.2 L Phosphorus 6.60 H Iron 13 L TIBC 160 L Erythropoietin Ferritin Total Bilirubin Direct Bilirubin AST ALT Alkaline Phosphatase Lactate Dehydrogenase C-Reactive Protein Serum Total Protein Total Protein Albumin Hqkkd-3-Hxzuabjjg Abnorm Protein Band 1 PEP Interpretation Crossmatch 10/14/16 10/14/16 10/14/16 05:27 06:29 07:34 WBC RBC Hgb Hct MCV MCHC RDW Plt Count Seg Neuts % (Manual) Lymphocytes % (Manual) Nucleated RBC % Seg Neutrophils # Man Lymphocytes # (Manual) Haptoglobin PT INR Fibrinogen Lupus Anticoagulant LA PTT Baseline POC ABG pH POC ABG pCO2 POC ABG pO2 Sodium Potassium Chloride Carbon Dioxide BUN Creatinine Glucose POC Glucose < 40 L 63 L < 40 L Lactic Acid Uric Acid Calcium Phosphorus Iron TIBC Erythropoietin Ferritin Total Bilirubin Direct Bilirubin AST ALT Alkaline Phosphatase Lactate Dehydrogenase C-Reactive Protein Serum Total Protein Total Protein Albumin Wdzmn-0-Hnwevijjf Abnorm Protein Band 1 PEP Interpretation Crossmatch 10/14/16 10/14/16 10/14/16 09:58 09:58 09:58 WBC RBC Hgb Hct MCV MCHC RDW Plt Count Seg Neuts % (Manual) Lymphocytes % (Manual) Nucleated RBC % Seg Neutrophils # Man Lymphocytes # (Manual) Haptoglobin 218 H PT INR Fibrinogen 557 H Lupus Anticoagulant LA PTT Baseline POC ABG pH POC ABG pCO2 POC ABG pO2 Sodium Potassium Chloride Carbon Dioxide BUN Creatinine Glucose POC Glucose Lactic Acid Uric Acid Calcium Phosphorus Iron TIBC Erythropoietin Ferritin Total Bilirubin 1.30 H Direct Bilirubin 1.1 H AST ALT Alkaline Phosphatase Lactate Dehydrogenase C-Reactive Protein Serum Total Protein Total Protein Albumin Jgatq-9-Zrrhfxhjm Abnorm Protein Band 1 PEP Interpretation Crossmatch 10/14/16 10/14/16 10/14/16 10:57 11:15 12:52 WBC RBC Hgb Hct MCV MCHC RDW Plt Count Seg Neuts % (Manual) Lymphocytes % (Manual) Nucleated RBC % Seg Neutrophils # Man Lymphocytes # (Manual) Haptoglobin PT INR Fibrinogen Lupus Anticoagulant LA PTT Baseline POC ABG pH POC ABG pCO2 POC ABG pO2 Sodium Potassium Chloride Carbon Dioxide BUN Creatinine Glucose POC Glucose < 40 L < 40 L Lactic Acid 9.60 H* Uric Acid Calcium Phosphorus Iron TIBC Erythropoietin Ferritin Total Bilirubin Direct Bilirubin AST ALT Alkaline Phosphatase Lactate Dehydrogenase C-Reactive Protein Serum Total Protein Total Protein Albumin Yoytg-9-Jzgkkfvcu Abnorm Protein Band 1 PEP Interpretation Crossmatch 10/14/16 10/14/16 10/14/16 12:52 13:17 14:12 WBC RBC Hgb Hct MCV MCHC RDW Plt Count Seg Neuts % (Manual) Lymphocytes % (Manual) Nucleated RBC % Seg Neutrophils # Man Lymphocytes # (Manual) Haptoglobin PT INR Fibrinogen Lupus Anticoagulant LA PTT Baseline POC ABG pH POC ABG pCO2 POC ABG pO2 Sodium Potassium Chloride Carbon Dioxide BUN Creatinine Glucose POC Glucose < 40 L < 40 L Lactic Acid Uric Acid Calcium Phosphorus Iron TIBC Erythropoietin Ferritin Total Bilirubin Direct Bilirubin AST ALT Alkaline Phosphatase Lactate Dehydrogenase C-Reactive Protein 40.40 H Serum Total Protein Total Protein Albumin Fdxke-4-Thxkyfgec Abnorm Protein Band 1 PEP Interpretation Crossmatch 10/14/16 10/14/16 10/14/16 15:02 15:33 15:33 WBC RBC Hgb Hct MCV MCHC RDW Plt Count Seg Neuts % (Manual) Lymphocytes % (Manual) Nucleated RBC % Seg Neutrophils # Man Lymphocytes # (Manual) Haptoglobin PT INR Fibrinogen Lupus Anticoagulant LA PTT Baseline POC ABG pH POC ABG pCO2 POC ABG pO2 Sodium Potassium Chloride Carbon Dioxide BUN Creatinine Glucose 19 L* POC Glucose < 40 L Lactic Acid 11.60 H* Uric Acid Calcium Phosphorus Iron TIBC Erythropoietin Ferritin Total Bilirubin Direct Bilirubin AST ALT Alkaline Phosphatase Lactate Dehydrogenase C-Reactive Protein Serum Total Protein Total Protein Albumin Ivcat-9-Oppvvpmds Abnorm Protein Band 1 PEP Interpretation Crossmatch 10/14/16 10/14/16 10/14/16 17:14 18:03 21:25 WBC RBC Hgb Hct MCV MCHC RDW Plt Count Seg Neuts % (Manual) Lymphocytes % (Manual) Nucleated RBC % Seg Neutrophils # Man Lymphocytes # (Manual) Haptoglobin PT 28.9 H INR 2.71 H Fibrinogen Lupus Anticoagulant LA PTT Baseline POC ABG pH POC ABG pCO2 POC ABG pO2 Sodium Potassium Chloride Carbon Dioxide BUN Creatinine Glucose POC Glucose < 40 L 57 L Lactic Acid Uric Acid Calcium Phosphorus Iron TIBC Erythropoietin Ferritin Total Bilirubin Direct Bilirubin AST ALT Alkaline Phosphatase Lactate Dehydrogenase C-Reactive Protein Serum Total Protein Total Protein Albumin Lxziz-3-Qcabsabay Abnorm Protein Band 1 PEP Interpretation Crossmatch 10/15/16 10/15/16 10/15/16 05:32 05:35 05:35 WBC RBC 2.62 L Hgb 8.1 L Hct 25.8 L MCV 98 H D MCHC 31 L RDW 21.2 H Plt Count 61 L Seg Neuts % (Manual) 27.0 L Lymphocytes % (Manual) 10.0 L Nucleated RBC % 2.0 H Seg Neutrophils # Man Lymphocytes # (Manual) 0.8 L Haptoglobin PT INR Fibrinogen Lupus Anticoagulant LA PTT Baseline POC ABG pH POC ABG pCO2 POC ABG pO2 Sodium Potassium Chloride Carbon Dioxide BUN Creatinine Glucose POC Glucose < 40 L Lactic Acid Uric Acid Calcium Phosphorus Iron TIBC Erythropoietin Ferritin Total Bilirubin Direct Bilirubin AST ALT Alkaline Phosphatase Lactate Dehydrogenase 3871 H C-Reactive Protein Serum Total Protein Total Protein Albumin Srwuu-9-Wmirwfawf Abnorm Protein Band 1 PEP Interpretation Crossmatch 10/15/16 10/15/16 10/15/16 05:35 05:35 05:35 WBC RBC Hgb Hct MCV MCHC RDW Plt Count Seg Neuts % (Manual) Lymphocytes % (Manual) Nucleated RBC % Seg Neutrophils # Man Lymphocytes # (Manual) Haptoglobin PT INR Fibrinogen Lupus Anticoagulant LA PTT Baseline POC ABG pH POC ABG pCO2 POC ABG pO2 Sodium 136 L Potassium 5.3 H D Chloride 91.4 L Carbon Dioxide 6 L* D BUN 57 H Creatinine 7.1 H Glucose 11 L* POC Glucose Lactic Acid 13.60 H* Uric Acid Calcium 7.7 L Phosphorus 10.10 H D Iron TIBC 166 L Erythropoietin Ferritin 9562.0 H Total Bilirubin Direct Bilirubin AST ALT Alkaline Phosphatase Lactate Dehydrogenase C-Reactive Protein Serum Total Protein Total Protein Albumin Kaarp-2-Ubcgkharw Abnorm Protein Band 1 PEP Interpretation Crossmatch 10/15/16 10/15/16 10/15/16 05:51 06:22 06:52 WBC RBC Hgb Hct MCV MCHC RDW Plt Count Seg Neuts % (Manual) Lymphocytes % (Manual) Nucleated RBC % Seg Neutrophils # Man Lymphocytes # (Manual) Haptoglobin PT INR Fibrinogen Lupus Anticoagulant LA PTT Baseline POC ABG pH 7.189 L POC ABG pCO2 28.9 L POC ABG pO2 Sodium Potassium Chloride Carbon Dioxide BUN Creatinine Glucose POC Glucose 59 L 111 H Lactic Acid Uric Acid Calcium Phosphorus Iron TIBC Erythropoietin Ferritin Total Bilirubin Direct Bilirubin AST ALT Alkaline Phosphatase Lactate Dehydrogenase C-Reactive Protein Serum Total Protein Total Protein Albumin Qunmr-6-Odhippfgw Abnorm Protein Band 1 PEP Interpretation Crossmatch 10/15/16 10/15/16 10/15/16 08:00 09:57 11:42 WBC RBC Hgb Hct MCV MCHC RDW Plt Count Seg Neuts % (Manual) Lymphocytes % (Manual) Nucleated RBC % Seg Neutrophils # Man Lymphocytes # (Manual) Haptoglobin PT INR Fibrinogen Lupus Anticoagulant LA PTT Baseline POC ABG pH POC ABG pCO2 POC ABG pO2 Sodium Potassium Chloride Carbon Dioxide BUN Creatinine Glucose POC Glucose 63 L 143 H 203 H Lactic Acid Uric Acid Calcium Phosphorus Iron TIBC Erythropoietin Ferritin Total Bilirubin Direct Bilirubin AST ALT Alkaline Phosphatase Lactate Dehydrogenase C-Reactive Protein Serum Total Protein Total Protein Albumin Ottzp-0-Oheducknp Abnorm Protein Band 1 PEP Interpretation Crossmatch 10/15/16 10/15/1610/15/17 12:00 12:00 13:00 WBC RBC Hgb Hct MCV MCHC RDW Plt Count Seg Neuts % (Manual) Lymphocytes % (Manual) Nucleated RBC % Seg Neutrophils # Man Lymphocytes # (Manual) Haptoglobin <15 L PT INR Fibrinogen Lupus Anticoagulant LA PTT Baseline POC ABG pH POC ABG pCO2 POC ABG pO2 Sodium Potassium Chloride Carbon Dioxide BUN Creatinine Glucose POC Glucose 136 H Lactic Acid 16.30 H* Uric Acid Calcium Phosphorus Iron TIBC Erythropoietin Ferritin Total Bilirubin Direct Bilirubin AST ALT Alkaline Phosphatase Lactate Dehydrogenase C-Reactive Protein Serum Total Protein Total Protein Albumin Usohm-0-Qucwpjesf Abnorm Protein Band 1 PEP Interpretation Crossmatch 10/15/16 10/15/16 10/15/16 14:06 15:15 16:23 WBC RBC Hgb Hct MCV MCHC RDW Plt Count Seg Neuts % (Manual) Lymphocytes % (Manual) Nucleated RBC % Seg Neutrophils # Man Lymphocytes # (Manual) Haptoglobin PT INR Fibrinogen Lupus Anticoagulant LA PTT Baseline POC ABG pH POC ABG pCO2 POC ABG pO2 Sodium Potassium Chloride Carbon Dioxide BUN Creatinine Glucose POC Glucose 132 H 64 L Lactic Acid 20.40 H* Uric Acid Calcium Phosphorus Iron TIBC Erythropoietin Ferritin Total Bilirubin Direct Bilirubin AST ALT Alkaline Phosphatase Lactate Dehydrogenase C-Reactive Protein Serum Total Protein Total Protein Albumin Lvuwh-7-Kphuabozw Abnorm Protein Band 1 PEP Interpretation Crossmatch 10/15/16 10/15/16 10/15/16 16:40 17:00 17:10 WBC RBC Hgb Hct MCV MCHC RDW Plt Count Seg Neuts % (Manual) Lymphocytes % (Manual) Nucleated RBC % Seg Neutrophils # Man Lymphocytes # (Manual) Haptoglobin PT INR Fibrinogen Lupus Anticoagulant LA PTT Baseline POC ABG pH 7.323 L POC ABG pCO2 25.8 L POC ABG pO2 135 H Sodium Potassium Chloride Carbon Dioxide BUN Creatinine Glucose POC Glucose 159 H Lactic Acid 20.20 H* Uric Acid Calcium Phosphorus Iron TIBC Erythropoietin Ferritin Total Bilirubin Direct Bilirubin AST ALT Alkaline Phosphatase Lactate Dehydrogenase C-Reactive Protein Serum Total Protein Total Protein Albumin Qgnfs-8-Wzlmzyjwl Abnorm Protein Band 1 PEP Interpretation Crossmatch 10/15/16 10/15/16 10/15/16 17:46 17:53 18:45 WBC RBC Hgb Hct MCV MCHC RDW Plt Count Seg Neuts % (Manual) Lymphocytes % (Manual) Nucleated RBC % Seg Neutrophils # Man Lymphocytes # (Manual) Haptoglobin PT INR Fibrinogen Lupus Anticoagulant LA PTT Baseline POC ABG pH POC ABG pCO2 POC ABG pO2 Sodium Potassium Chloride Carbon Dioxide BUN Creatinine Glucose POC Glucose 126 H 143 H Lactic Acid 21.40 H* Uric Acid Calcium Phosphorus Iron TIBC Erythropoietin Ferritin Total Bilirubin Direct Bilirubin AST ALT Alkaline Phosphatase Lactate Dehydrogenase C-Reactive Protein Serum Total Protein Total Protein Albumin Lmtyp-5-Jwzqygdcw Abnorm Protein Band 1 PEP Interpretation Crossmatch 10/15/16 10/15/16 10/16/16 20:03 22:59 00:06 WBC RBC Hgb Hct MCV MCHC RDW Plt Count Seg Neuts % (Manual) Lymphocytes % (Manual) Nucleated RBC % Seg Neutrophils # Man Lymphocytes # (Manual) Haptoglobin PT INR Fibrinogen Lupus Anticoagulant LA PTT Baseline POC ABG pH POC ABG pCO2 POC ABG pO2 Sodium Potassium Chloride Carbon Dioxide BUN Creatinine Glucose POC Glucose 66 L 53 L 126 H Lactic Acid Uric Acid Calcium Phosphorus Iron TIBC Erythropoietin Ferritin Total Bilirubin Direct Bilirubin AST ALT Alkaline Phosphatase Lactate Dehydrogenase C-Reactive Protein Serum Total Protein Total Protein Albumin Wdolz-8-Kpjafjhgo Abnorm Protein Band 1 PEP Interpretation Crossmatch 10/16/16 10/16/16 10/16/16 01:03 03:55 04:00 WBC RBC Hgb Hct MCV MCHC RDW Plt Count Seg Neuts % (Manual) Lymphocytes % (Manual) Nucleated RBC % Seg Neutrophils # Man Lymphocytes # (Manual) Haptoglobin PT INR Fibrinogen Lupus Anticoagulant LA PTT Baseline POC ABG pH POC ABG pCO2 POC ABG pO2 Sodium Potassium Chloride Carbon Dioxide BUN Creatinine Glucose POC Glucose 107 H 260 H Lactic Acid 18.00 H* Uric Acid Calcium Phosphorus Iron TIBC Erythropoietin Ferritin Total Bilirubin Direct Bilirubin AST ALT Alkaline Phosphatase Lactate Dehydrogenase C-Reactive Protein Serum Total Protein Total Protein Albumin Ntaap-9-Dtyxwmiff Abnorm Protein Band 1 PEP Interpretation Crossmatch 10/16/16 10/16/16 10/16/16 04:03 07:58 08:34 WBC RBC Hgb Hct MCV MCHC RDW Plt Count Seg Neuts % (Manual) Lymphocytes % (Manual) Nucleated RBC % Seg Neutrophils # Man Lymphocytes # (Manual) Haptoglobin PT INR Fibrinogen Lupus Anticoagulant LA PTT Baseline POC ABG pH 7.527 H POC ABG pCO2 32.9 L POC ABG pO2 119 H Sodium Potassium Chloride Carbon Dioxide BUN Creatinine Glucose POC Glucose 120 H 66 L Lactic Acid Uric Acid Calcium Phosphorus Iron TIBC Erythropoietin Ferritin Total Bilirubin Direct Bilirubin AST ALT Alkaline Phosphatase Lactate Dehydrogenase C-Reactive Protein Serum Total Protein Total Protein Albumin Dixzm-3-Mnujarjps Abnorm Protein Band 1 PEP Interpretation Crossmatch 10/16/16 10/16/16 10/16/16 09:13 10:06 10:57 WBC RBC Hgb Hct MCV MCHC RDW Plt Count Seg Neuts % (Manual) Lymphocytes % (Manual) Nucleated RBC % Seg Neutrophils # Man Lymphocytes # (Manual) Haptoglobin PT INR Fibrinogen Lupus Anticoagulant LA PTT Baseline POC ABG pH POC ABG pCO2 POC ABG pO2 Sodium Potassium Chloride Carbon Dioxide BUN Creatinine Glucose POC Glucose 147 H 137 H 140 H Lactic Acid Uric Acid Calcium Phosphorus Iron TIBC Erythropoietin Ferritin Total Bilirubin Direct Bilirubin AST ALT Alkaline Phosphatase Lactate Dehydrogenase C-Reactive Protein Serum Total Protein Total Protein Albumin Bhvhz-9-Regkhbjtv Abnorm Protein Band 1 PEP Interpretation Crossmatch 10/16/16 10/16/16 10/16/16 11:15 11:15 11:15 WBC 25.8 H RBC 2.30 L Hgb 7.0 L Hct 22.3 L MCV 97 H MCHC 31 L RDW 21.2 H Plt Count 42 L Seg Neuts % (Manual) Lymphocytes % (Manual) 3.0 L Nucleated RBC % 2.0 H Seg Neutrophils # Man 11.1 H Lymphocytes # (Manual) 0.8 L Haptoglobin PT INR Fibrinogen Lupus Anticoagulant LA PTT Baseline POC ABG pH POC ABG pCO2 POC ABG pO2 Sodium Potassium Chloride 81.7 L Carbon Dioxide 13 L D BUN 61 H Creatinine 6.2 H Glucose 171 H POC Glucose Lactic Acid 22.70 H* Uric Acid Calcium 7.1 L Phosphorus 9.10 H Iron TIBC Erythropoietin Ferritin Total Bilirubin Direct Bilirubin AST ALT Alkaline Phosphatase Lactate Dehydrogenase C-Reactive Protein Serum Total Protein Total Protein Albumin Knvsy-6-Cltrbkrzk Abnorm Protein Band 1 PEP Interpretation Crossmatch 10/16/16 10/16/16 10/16/16 15:10 15:50 18:11 WBC RBC Hgb Hct MCV MCHC RDW Plt Count Seg Neuts % (Manual) Lymphocytes % (Manual) Nucleated RBC % Seg Neutrophils # Man Lymphocytes # (Manual) Haptoglobin PT INR Fibrinogen Lupus Anticoagulant LA PTT Baseline POC ABG pH POC ABG pCO2 POC ABG pO2 Sodium Potassium Chloride Carbon Dioxide BUN Creatinine Glucose POC Glucose 47 L 164 H 58 L Lactic Acid Uric Acid Calcium Phosphorus Iron TIBC Erythropoietin Ferritin Total Bilirubin Direct Bilirubin AST ALT Alkaline Phosphatase Lactate Dehydrogenase C-Reactive Protein Serum Total Protein Total Protein Albumin Yucsp-7-Dtnqfdmws Abnorm Protein Band 1 PEP Interpretation Crossmatch 10/16/16 10/16/16 10/17/16 18:26 21:06 00:06 WBC RBC Hgb Hct MCV MCHC RDW Plt Count Seg Neuts % (Manual) Lymphocytes % (Manual) Nucleated RBC % Seg Neutrophils # Man Lymphocytes # (Manual) Haptoglobin PT INR Fibrinogen Lupus Anticoagulant LA PTT Baseline POC ABG pH POC ABG pCO2 POC ABG pO2 489 H Sodium Potassium Chloride Carbon Dioxide BUN Creatinine Glucose POC Glucose 52 L 120 H Lactic Acid Uric Acid Calcium Phosphorus Iron TIBC Erythropoietin Ferritin Total Bilirubin Direct Bilirubin AST ALT Alkaline Phosphatase Lactate Dehydrogenase C-Reactive Protein Serum Total Protein Total Protein Albumin Ozdgr-0-Mjpgblwgk Abnorm Protein Band 1 PEP Interpretation Crossmatch 10/17/16 10/17/16 10/17/16 04:55 04:55 05:04 WBC 25.5 H RBC 2.23 L Hgb 6.6 L Hct 21.2 L MCV 95 H MCHC 31 L RDW 20.5 H Plt Count 35 L Seg Neuts % (Manual) 79.0 H Lymphocytes % (Manual) 0 L Nucleated RBC % Seg Neutrophils # Man 20.1 H Lymphocytes # (Manual) 0.0 L Haptoglobin PT INR Fibrinogen Lupus Anticoagulant LA PTT Baseline POC ABG pH POC ABG pCO2 27.2 L POC ABG pO2 162 H Sodium Potassium Chloride 91.5 L Carbon Dioxide 16 L BUN 45 H Creatinine 4.5 H Glucose 103 H POC Glucose Lactic Acid Uric Acid Calcium 6.9 L Phosphorus 5.80 H D Iron TIBC Erythropoietin Ferritin Total Bilirubin Direct Bilirubin AST ALT Alkaline Phosphatase Lactate Dehydrogenase C-Reactive Protein Serum Total Protein Total Protein Albumin Xdovj-9-Rocxqhlmy Abnorm Protein Band 1 PEP Interpretation Crossmatch 10/17/16 10/17/16 10/17/16 07:59 09:04 10:04 WBC RBC Hgb Hct MCV MCHC RDW Plt Count Seg Neuts % (Manual) Lymphocytes % (Manual) Nucleated RBC % Seg Neutrophils # Man Lymphocytes # (Manual) Haptoglobin PT INR Fibrinogen Lupus Anticoagulant LA PTT Baseline POC ABG pH POC ABG pCO2 POC ABG pO2 Sodium Potassium Chloride Carbon Dioxide BUN Creatinine Glucose POC Glucose 65 L 118 H Lactic Acid Uric Acid Calcium Phosphorus Iron TIBC Erythropoietin Ferritin Total Bilirubin Direct Bilirubin AST ALT Alkaline Phosphatase Lactate Dehydrogenase C-Reactive Protein Serum Total Protein Total Protein Albumin Mgmcg-0-Ckanmrepb Abnorm Protein Band 1 PEP Interpretation Crossmatch See Detail 10/17/16 10/17/16 10/17/16 11:52 13:08 15:42 WBC RBC Hgb Hct MCV MCHC RDW Plt Count Seg Neuts % (Manual) Lymphocytes % (Manual) Nucleated RBC % Seg Neutrophils # Man Lymphocytes # (Manual) Haptoglobin PT INR Fibrinogen Lupus Anticoagulant LA PTT Baseline POC ABG pH POC ABG pCO2 POC ABG pO2 Sodium Potassium Chloride Carbon Dioxide BUN Creatinine Glucose POC Glucose 125 H 106 H 55 L Lactic Acid Uric Acid Calcium Phosphorus Iron TIBC Erythropoietin Ferritin Total Bilirubin Direct Bilirubin AST ALT Alkaline Phosphatase Lactate Dehydrogenase C-Reactive Protein Serum Total Protein Total Protein Albumin Rswxa-6-Vlirbkrcx Abnorm Protein Band 1 PEP Interpretation Crossmatch 10/17/16 10/17/16 10/17/16 17:39 20:37 21:02 WBC RBC Hgb Hct MCV MCHC RDW Plt Count Seg Neuts % (Manual) Lymphocytes % (Manual) Nucleated RBC % Seg Neutrophils # Man Lymphocytes # (Manual) Haptoglobin PT INR Fibrinogen Lupus Anticoagulant LA PTT Baseline POC ABG pH POC ABG pCO2 28.2 L POC ABG pO2 Sodium Potassium Chloride Carbon Dioxide BUN Creatinine Glucose POC Glucose < 40 L 106 H Lactic Acid Uric Acid Calcium Phosphorus Iron TIBC Erythropoietin Ferritin Total Bilirubin Direct Bilirubin AST ALT Alkaline Phosphatase Lactate Dehydrogenase C-Reactive Protein Serum Total Protein Total Protein Albumin Ljtkr-8-Fximvkfrm Abnorm Protein Band 1 PEP Interpretation Crossmatch 10/17/16 10/17/16 10/18/16 22:18 23:14 00:28 WBC RBC Hgb Hct MCV MCHC RDW Plt Count Seg Neuts % (Manual) Lymphocytes % (Manual) Nucleated RBC % Seg Neutrophils # Man Lymphocytes # (Manual) Haptoglobin PT INR Fibrinogen Lupus Anticoagulant LA PTT Baseline POC ABG pH POC ABG pCO2 POC ABG pO2 Sodium Potassium Chloride Carbon Dioxide BUN Creatinine Glucose POC Glucose 111 H 118 H 112 H Lactic Acid Uric Acid Calcium Phosphorus Iron TIBC Erythropoietin Ferritin Total Bilirubin Direct Bilirubin AST ALT Alkaline Phosphatase Lactate Dehydrogenase C-Reactive Protein Serum Total Protein Total Protein Albumin Wilcl-0-Dvpdkoiye Abnorm Protein Band 1 PEP Interpretation Crossmatch 10/18/16 10/18/16 10/18/16 05:00 05:00 05:15 WBC 27.3 H RBC 2.75 L Hgb 7.9 L Hct 25.3 L MCV MCHC 31 L RDW 20.7 H Plt Count 31 L Seg Neuts % (Manual) 87.0 H Lymphocytes % (Manual) 1.0 L Nucleated RBC % 1.0 H Seg Neutrophils # Man 23.8 H Lymphocytes # (Manual) 0.3 L Haptoglobin PT INR Fibrinogen Lupus Anticoagulant LA PTT Baseline POC ABG pH 7.466 H POC ABG pCO2 25.1 L POC ABG pO2 Sodium Potassium Chloride 88.7 L Carbon Dioxide 18 L BUN 66 H Creatinine 4.7 H Glucose POC Glucose Lactic Acid Uric Acid Calcium 6.1 L Phosphorus 7.30 H D Iron TIBC Erythropoietin Ferritin Total Bilirubin Direct Bilirubin AST ALT Alkaline Phosphatase Lactate Dehydrogenase C-Reactive Protein Serum Total Protein Total Protein Albumin Dcstj-5-Ymmyzrtdl Abnorm Protein Band 1 PEP Interpretation Crossmatch 10/18/16 10/18/16 10/18/16 07:15 07:44 09:07 WBC RBC Hgb Hct MCV MCHC RDW Plt Count Seg Neuts % (Manual) Lymphocytes % (Manual) Nucleated RBC % Seg Neutrophils # Man Lymphocytes # (Manual) Haptoglobin PT INR Fibrinogen Lupus Anticoagulant LA PTT Baseline POC ABG pH POC ABG pCO2 POC ABG pO2 Sodium Potassium Chloride Carbon Dioxide BUN Creatinine Glucose POC Glucose 64 L 156 H 117 H Lactic Acid Uric Acid Calcium Phosphorus Iron TIBC Erythropoietin Ferritin Total Bilirubin Direct Bilirubin AST ALT Alkaline Phosphatase Lactate Dehydrogenase C-Reactive Protein Serum Total Protein Total Protein Albumin Hrwnu-1-Dalgapdul Abnorm Protein Band 1 PEP Interpretation Crossmatch 10/18/16 10/18/16 10/18/16 09:15 14:00 18:21 WBC RBC Hgb Hct MCV MCHC RDW Plt Count Seg Neuts % (Manual) Lymphocytes % (Manual) Nucleated RBC % Seg Neutrophils # Man Lymphocytes # (Manual) Haptoglobin PT INR Fibrinogen Lupus Anticoagulant LA PTT Baseline POC ABG pH POC ABG pCO2 POC ABG pO2 Sodium Potassium Chloride Carbon Dioxide BUN Creatinine Glucose POC Glucose 106 H 112 H Lactic Acid 14.30 H* Uric Acid Calcium Phosphorus Iron TIBC Erythropoietin Ferritin Total Bilirubin Direct Bilirubin AST ALT Alkaline Phosphatase Lactate Dehydrogenase C-Reactive Protein Serum Total Protein Total Protein Albumin Ukhal-1-Mwkifhpay Abnorm Protein Band 1 PEP Interpretation Crossmatch 10/18/16 10/18/16 10/18/16 19:58 20:55 22:11 WBC RBC Hgb Hct MCV MCHC RDW Plt Count Seg Neuts % (Manual) Lymphocytes % (Manual) Nucleated RBC % Seg Neutrophils # Man Lymphocytes # (Manual) Haptoglobin PT INR Fibrinogen Lupus Anticoagulant LA PTT Baseline POC ABG pH POC ABG pCO2 POC ABG pO2 Sodium Potassium Chloride Carbon Dioxide BUN Creatinine Glucose POC Glucose 127 H 125 H 159 H Lactic Acid Uric Acid Calcium Phosphorus Iron TIBC Erythropoietin Ferritin Total Bilirubin Direct Bilirubin AST ALT Alkaline Phosphatase Lactate Dehydrogenase C-Reactive Protein Serum Total Protein Total Protein Albumin Gupiv-1-Lrbkdqawx Abnorm Protein Band 1 PEP Interpretation Crossmatch 10/18/16 10/18/16 10/19/16 23:11 23:57 01:06 WBC RBC Hgb Hct MCV MCHC RDW Plt Count Seg Neuts % (Manual) Lymphocytes % (Manual) Nucleated RBC % Seg Neutrophils # Man Lymphocytes # (Manual) Haptoglobin PT INR Fibrinogen Lupus Anticoagulant LA PTT Baseline POC ABG pH POC ABG pCO2 POC ABG pO2 Sodium Potassium Chloride Carbon Dioxide BUN Creatinine Glucose POC Glucose 122 H 137 H 162 H Lactic Acid Uric Acid Calcium Phosphorus Iron TIBC Erythropoietin Ferritin Total Bilirubin Direct Bilirubin AST ALT Alkaline Phosphatase Lactate Dehydrogenase C-Reactive Protein Serum Total Protein Total Protein Albumin Udunq-5-Wpgzlgqoc Abnorm Protein Band 1 PEP Interpretation Crossmatch 10/19/16 10/19/16 10/19/16 01:59 03:07 04:10 WBC RBC Hgb Hct MCV MCHC RDW Plt Count Seg Neuts % (Manual) Lymphocytes % (Manual) Nucleated RBC % Seg Neutrophils # Man Lymphocytes # (Manual) Haptoglobin PT INR Fibrinogen Lupus Anticoagulant LA PTT Baseline POC ABG pH POC ABG pCO2 POC ABG pO2 Sodium Potassium Chloride Carbon Dioxide BUN Creatinine Glucose POC Glucose 154 H 178 H 186 H Lactic Acid Uric Acid Calcium Phosphorus Iron TIBC Erythropoietin Ferritin Total Bilirubin Direct Bilirubin AST ALT Alkaline Phosphatase Lactate Dehydrogenase C-Reactive Protein Serum Total Protein Total Protein Albumin Cxdiq-3-Pmelctwzg Abnorm Protein Band 1 PEP Interpretation Crossmatch 10/19/16 10/19/16 10/19/16 05:14 05:15 05:47 WBC RBC Hgb Hct MCV MCHC RDW Plt Count Seg Neuts % (Manual) Lymphocytes % (Manual) Nucleated RBC % Seg Neutrophils # Man Lymphocytes # (Manual) Haptoglobin PT INR Fibrinogen Lupus Anticoagulant LA PTT Baseline POC ABG pH 7.581 H POC ABG pCO2 22.9 L POC ABG pO2 58 L Sodium Potassium Chloride Carbon Dioxide BUN Creatinine Glucose POC Glucose 197 H 204 H Lactic Acid Uric Acid Calcium Phosphorus Iron TIBC Erythropoietin Ferritin Total Bilirubin Direct Bilirubin AST ALT Alkaline Phosphatase Lactate Dehydrogenase C-Reactive Protein Serum Total Protein Total Protein Albumin Xxgar-3-Vezddpbei Abnorm Protein Band 1 PEP Interpretation Crossmatch 10/19/16 10/19/16 10/19/16 06:00 06:00 07:51 WBC 23.0 H RBC 2.54 L Hgb 7.5 L Hct 23.0 L MCV MCHC RDW 20.7 H Plt Count 25 L Seg Neuts % (Manual) 91.0 H Lymphocytes % (Manual) 2.0 L Nucleated RBC % 1.0 H Seg Neutrophils # Man 20.9 H Lymphocytes # (Manual) 0.5 L Haptoglobin PT INR Fibrinogen Lupus Anticoagulant LA PTT Baseline POC ABG pH POC ABG pCO2 POC ABG pO2 Sodium Potassium Chloride 88.7 L Carbon Dioxide 21 L BUN 70 H Creatinine 3.9 H Glucose 189 H POC Glucose 145 H Lactic Acid Uric Acid Calcium 5.6 L* Phosphorus 6.30 H Iron TIBC Erythropoietin Ferritin Total Bilirubin Direct Bilirubin AST ALT Alkaline Phosphatase Lactate Dehydrogenase C-Reactive Protein Serum Total Protein Total Protein Albumin Bcyhg-5-Ptkjddqhh Abnorm Protein Band 1 PEP Interpretation Crossmatch 10/19/16 10/19/16 10/19/16 09:14 10:01 12:14 WBC RBC Hgb Hct MCV MCHC RDW Plt Count Seg Neuts % (Manual) Lymphocytes % (Manual) Nucleated RBC % Seg Neutrophils # Man Lymphocytes # (Manual) Haptoglobin PT INR Fibrinogen Lupus Anticoagulant LA PTT Baseline POC ABG pH POC ABG pCO2 POC ABG pO2 Sodium Potassium Chloride Carbon Dioxide BUN Creatinine Glucose POC Glucose 173 H 153 H 180 H Lactic Acid Uric Acid Calcium Phosphorus Iron TIBC Erythropoietin Ferritin Total Bilirubin Direct Bilirubin AST ALT Alkaline Phosphatase Lactate Dehydrogenase C-Reactive Protein Serum Total Protein Total Protein Albumin Lozgh-8-Unwtvbvxb Abnorm Protein Band 1 PEP Interpretation Crossmatch 10/19/16 10/19/16 10/19/16 14:15 16:38 20:27 WBC RBC Hgb Hct MCV MCHC RDW Plt Count Seg Neuts % (Manual) Lymphocytes % (Manual) Nucleated RBC % Seg Neutrophils # Man Lymphocytes # (Manual) Haptoglobin PT INR Fibrinogen Lupus Anticoagulant LA PTT Baseline POC ABG pH POC ABG pCO2 POC ABG pO2 Sodium Potassium Chloride Carbon Dioxide BUN Creatinine Glucose POC Glucose 194 H 202 H Lactic Acid Uric Acid Calcium Phosphorus Iron TIBC Erythropoietin 148.2 H Ferritin Total Bilirubin Direct Bilirubin AST ALT Alkaline Phosphatase Lactate Dehydrogenase C-Reactive Protein Serum Total Protein Total Protein Albumin Eczxk-8-Rmjaqxhly Abnorm Protein Band 1 PEP Interpretation Crossmatch 10/19/16 10/20/16 10/20/16 23:27 04:06 05:00 WBC RBC Hgb Hct MCV MCHC RDW Plt Count Seg Neuts % (Manual) Lymphocytes % (Manual) Nucleated RBC % Seg Neutrophils # Man Lymphocytes # (Manual) Haptoglobin PT INR Fibrinogen Lupus Anticoagulant LA PTT Baseline POC ABG pH POC ABG pCO2 POC ABG pO2 Sodium Potassium Chloride 88.8 L Carbon Dioxide BUN 93 H Creatinine 4.3 H Glucose 204 H POC Glucose 201 H 200 H Lactic Acid Uric Acid Calcium 5.2 L* Phosphorus Iron TIBC Erythropoietin Ferritin Total Bilirubin Direct Bilirubin AST ALT Alkaline Phosphatase Lactate Dehydrogenase C-Reactive Protein Serum Total Protein Total Protein Albumin Iyrqf-2-Hifjilseq Abnorm Protein Band 1 PEP Interpretation Crossmatch 10/20/16 10/20/16 10/20/16 05:16 06:00 07:43 WBC 24.8 H RBC 2.52 L Hgb 7.4 L Hct 22.9 L MCV MCHC RDW 19.9 H Plt Count 23 L Seg Neuts % (Manual) 97.0 H Lymphocytes % (Manual) 1.0 L Nucleated RBC % 9.0 H Seg Neutrophils # Man 24.1 H Lymphocytes # (Manual) 0.2 L Haptoglobin PT INR Fibrinogen Lupus Anticoagulant LA PTT Baseline POC ABG pH 7.463 H POC ABG pCO2 POC ABG pO2 157 H Sodium Potassium Chloride Carbon Dioxide BUN Creatinine Glucose POC Glucose 192 H Lactic Acid Uric Acid Calcium Phosphorus Iron TIBC Erythropoietin Ferritin Total Bilirubin Direct Bilirubin AST ALT Alkaline Phosphatase Lactate Dehydrogenase C-Reactive Protein Serum Total Protein Total Protein Albumin Ksvya-3-Tgvuzduig Abnorm Protein Band 1 PEP Interpretation Crossmatch 10/20/16 10/20/16 10/20/16 12:11 15:32 21:23 WBC RBC Hgb Hct MCV MCHC RDW Plt Count Seg Neuts % (Manual) Lymphocytes % (Manual) Nucleated RBC % Seg Neutrophils # Man Lymphocytes # (Manual) Haptoglobin PT INR Fibrinogen Lupus Anticoagulant LA PTT Baseline POC ABG pH POC ABG pCO2 POC ABG pO2 Sodium Potassium Chloride Carbon Dioxide BUN Creatinine Glucose POC Glucose 172 H 216 H 271 H Lactic Acid Uric Acid Calcium Phosphorus Iron TIBC Erythropoietin Ferritin Total Bilirubin Direct Bilirubin AST ALT Alkaline Phosphatase Lactate Dehydrogenase C-Reactive Protein Serum Total Protein Total Protein Albumin Locyd-7-Uqxpabsfy Abnorm Protein Band 1 PEP Interpretation Crossmatch 10/20/16 10/21/16 10/21/16 23:49 03:53 04:58 WBC RBC Hgb Hct MCV MCHC RDW Plt Count Seg Neuts % (Manual) Lymphocytes % (Manual) Nucleated RBC % Seg Neutrophils # Man Lymphocytes # (Manual) Haptoglobin PT INR Fibrinogen Lupus Anticoagulant LA PTT Baseline POC ABG pH 7.459 H POC ABG pCO2 POC ABG pO2 113 H Sodium 136 L Potassium 2.8 L* D Chloride 91.6 L Carbon Dioxide BUN 62 H Creatinine 2.8 H Glucose 236 H POC Glucose 317 H Lactic Acid Uric Acid Calcium 6.2 L D Phosphorus Iron TIBC Erythropoietin Ferritin Total Bilirubin 2.70 H Direct Bilirubin AST 73 H ALT 57 H Alkaline Phosphatase 158 H Lactate Dehydrogenase C-Reactive Protein Serum Total Protein Total Protein 4.9 L Albumin 2.6 L Ajrgw-9-Gbfhzsoeh Abnorm Protein Band 1 PEP Interpretation Crossmatch 10/21/16 10/21/16 10/21/16 05:25 07:11 10:30 WBC 28.1 H RBC 2.36 L Hgb 7.0 L Hct 21.6 L MCV MCHC RDW 20.0 H Plt Count 14 L* Seg Neuts % (Manual) 92.0 H Lymphocytes % (Manual) 0 L Nucleated RBC % 5.0 H Seg Neutrophils # Man 25.9 H Lymphocytes # (Manual) 0.0 L Haptoglobin PT INR Fibrinogen Lupus Anticoagulant LA PTT Baseline POC ABG pH POC ABG pCO2 POC ABG pO2 Sodium Potassium Chloride Carbon Dioxide BUN Creatinine Glucose POC Glucose 237 H 206 H Lactic Acid Uric Acid Calcium Phosphorus Iron TIBC Erythropoietin Ferritin Total Bilirubin Direct Bilirubin AST ALT Alkaline Phosphatase Lactate Dehydrogenase C-Reactive Protein Serum Total Protein Total Protein Albumin Fseec-4-Tgtqpiwok Abnorm Protein Band 1 PEP Interpretation Crossmatch 10/21/16 10/21/16 10/21/16 11:25 12:31 16:33 WBC RBC Hgb Hct MCV MCHC RDW Plt Count Seg Neuts % (Manual) Lymphocytes % (Manual) Nucleated RBC % Seg Neutrophils # Man Lymphocytes # (Manual) Haptoglobin PT 49.1 H INR 5.28 H* Fibrinogen Lupus Anticoagulant LA PTT Baseline POC ABG pH POC ABG pCO2 POC ABG pO2 Sodium Potassium Chloride Carbon Dioxide BUN Creatinine Glucose POC Glucose 145 H 151 H Lactic Acid Uric Acid Calcium Phosphorus Iron TIBC Erythropoietin Ferritin Total Bilirubin Direct Bilirubin AST ALT Alkaline Phosphatase Lactate Dehydrogenase C-Reactive Protein Serum Total Protein Total Protein Albumin Hxagp-9-Kjgqeherq Abnorm Protein Band 1 PEP Interpretation Crossmatch 10/21/16 10/22/16 10/22/16 19:53 00:00 05:23 WBC RBC Hgb Hct MCV MCHC RDW Plt Count Seg Neuts % (Manual) Lymphocytes % (Manual) Nucleated RBC % Seg Neutrophils # Man Lymphocytes # (Manual) Haptoglobin PT INR Fibrinogen Lupus Anticoagulant LA PTT Baseline POC ABG pH POC ABG pCO2 POC ABG pO2 Sodium Potassium Chloride Carbon Dioxide BUN Creatinine Glucose POC Glucose 170 H 168 H 131 H Lactic Acid Uric Acid Calcium Phosphorus Iron TIBC Erythropoietin Ferritin Total Bilirubin Direct Bilirubin AST ALT Alkaline Phosphatase Lactate Dehydrogenase C-Reactive Protein Serum Total Protein Total Protein Albumin Xgytp-4-Hlhmewtka Abnorm Protein Band 1 PEP Interpretation Crossmatch 10/22/16 10/22/16 10/22/16 05:25 05:35 13:03 WBC RBC Hgb Hct MCV MCHC RDW Plt Count Seg Neuts % (Manual) Lymphocytes % (Manual) Nucleated RBC % Seg Neutrophils # Man Lymphocytes # (Manual) Haptoglobin PT INR Fibrinogen Lupus Anticoagulant LA PTT Baseline POC ABG pH 7.462 H POC ABG pCO2 POC ABG pO2 Sodium 135 L Potassium 3.0 L Chloride 88.5 L Carbon Dioxide BUN 84 H Creatinine 3.4 H Glucose 124 H POC Glucose 164 H Lactic Acid Uric Acid Calcium 5.9 L* Phosphorus Iron TIBC Erythropoietin Ferritin Total Bilirubin 2.00 H Direct Bilirubin AST 85 H ALT Alkaline Phosphatase 199 H Lactate Dehydrogenase C-Reactive Protein Serum Total Protein Total Protein 5.0 L Albumin 2.5 L Fseet-3-Kkemaxfaz Abnorm Protein Band 1 PEP Interpretation Crossmatch 10/22/16 10/22/16 10/23/16 17:14 23:16 04:47 WBC RBC Hgb Hct MCV MCHC RDW Plt Count Seg Neuts % (Manual) Lymphocytes % (Manual) Nucleated RBC % Seg Neutrophils # Man Lymphocytes # (Manual) Haptoglobin PT INR Fibrinogen Lupus Anticoagulant LA PTT Baseline POC ABG pH 7.476 H POC ABG pCO2 POC ABG pO2 108 H Sodium Potassium Chloride Carbon Dioxide BUN Creatinine Glucose POC Glucose 188 H 167 H Lactic Acid Uric Acid Calcium Phosphorus Iron TIBC Erythropoietin Ferritin Total Bilirubin Direct Bilirubin AST ALT Alkaline Phosphatase Lactate Dehydrogenase C-Reactive Protein Serum Total Protein Total Protein Albumin Fhesk-5-Yyammzvcd Abnorm Protein Band 1 PEP Interpretation Crossmatch 10/23/16 10/23/16 10/23/16 05:49 07:00 07:12 WBC 24.2 H RBC 2.27 L Hgb 7.0 L Hct 21.1 L MCV MCHC RDW 19.7 H Plt Count 35 L D Seg Neuts % (Manual) Lymphocytes % (Manual) Nucleated RBC % Seg Neutrophils # Man Lymphocytes # (Manual) Haptoglobin PT INR Fibrinogen Lupus Anticoagulant LA PTT Baseline POC ABG pH POC ABG pCO2 POC ABG pO2 Sodium Potassium 3.5 L Chloride 95.7 L Carbon Dioxide BUN 55 H Creatinine 2.7 H Glucose 103 H POC Glucose 106 H Lactic Acid Uric Acid Calcium 7.1 L D Phosphorus Iron TIBC Erythropoietin Ferritin Total Bilirubin Direct Bilirubin AST ALT Alkaline Phosphatase Lactate Dehydrogenase C-Reactive Protein Serum Total Protein Total Protein Albumin Ugpet-5-Rmpmxttey Abnorm Protein Band 1 PEP Interpretation Crossmatch 10/24/16 10/24/16 10/24/16 00:12 05:16 07:00 WBC 17.9 H RBC 2.12 L Hgb 6.5 L Hct 19.9 L* MCV MCHC RDW 19.3 H Plt Count 44 L Seg Neuts % (Manual) Lymphocytes % (Manual) Nucleated RBC % Seg Neutrophils # Man Lymphocytes # (Manual) Haptoglobin PT INR Fibrinogen Lupus Anticoagulant LA PTT Baseline POC ABG pH POC ABG pCO2 POC ABG pO2 Sodium Potassium Chloride Carbon Dioxide BUN Creatinine Glucose POC Glucose 116 H 135 H Lactic Acid Uric Acid Calcium Phosphorus Iron TIBC Erythropoietin Ferritin Total Bilirubin Direct Bilirubin AST ALT Alkaline Phosphatase Lactate Dehydrogenase C-Reactive Protein Serum Total Protein Total Protein Albumin Sjtqv-3-Hajiaglgy Abnorm Protein Band 1 PEP Interpretation Crossmatch 10/24/16 10/24/16 10/24/16 07:00 11:45 12:12 WBC RBC Hgb Hct MCV MCHC RDW Plt Count Seg Neuts % (Manual) Lymphocytes % (Manual) Nucleated RBC % Seg Neutrophils # Man Lymphocytes # (Manual) Haptoglobin PT INR Fibrinogen Lupus Anticoagulant LA PTT Baseline POC ABG pH POC ABG pCO2 POC ABG pO2 Sodium Potassium Chloride 92.9 L Carbon Dioxide BUN 74 H Creatinine 3.3 H Glucose 136 H POC Glucose 177 H Lactic Acid Uric Acid Calcium 6.6 L Phosphorus Iron TIBC Erythropoietin Ferritin Total Bilirubin 2.10 H Direct Bilirubin AST 68 H ALT Alkaline Phosphatase 224 H Lactate Dehydrogenase C-Reactive Protein Serum Total Protein Total Protein 4.8 L Albumin 2.3 L Nvrun-4-Kfluwevnt Abnorm Protein Band 1 PEP Interpretation Crossmatch See Detail 10/24/16 10/24/16 10/24/16 16:30 16:30 17:28 WBC RBC Hgb Hct MCV MCHC RDW Plt Count Seg Neuts % (Manual) Lymphocytes % (Manual) Nucleated RBC % Seg Neutrophils # Man Lymphocytes # (Manual) Haptoglobin PT INR Fibrinogen Lupus Anticoagulant LA PTT Baseline POC ABG pH POC ABG pCO2 POC ABG pO2 Sodium Potassium Chloride Carbon Dioxide BUN Creatinine Glucose POC Glucose 128 H Lactic Acid 3.00 H* Uric Acid Calcium Phosphorus Iron TIBC Erythropoietin Ferritin Total Bilirubin Direct Bilirubin AST ALT Alkaline Phosphatase Lactate Dehydrogenase C-Reactive Protein 7.40 H Serum Total Protein Total Protein Albumin Jdzgd-6-Kymoezjdd Abnorm Protein Band 1 PEP Interpretation Crossmatch 10/24/16 10/24/16 10/25/16 18:40 23:32 05:00 WBC 17.5 H RBC 2.99 L Hgb 9.1 L Hct 26.9 L D MCV MCHC RDW 17.7 H Plt Count 53 L Seg Neuts % (Manual) Lymphocytes % (Manual) Nucleated RBC % Seg Neutrophils # Man Lymphocytes # (Manual) Haptoglobin PT INR Fibrinogen Lupus Anticoagulant LA PTT Baseline POC ABG pH POC ABG pCO2 POC ABG pO2 Sodium Potassium Chloride Carbon Dioxide BUN Creatinine Glucose POC Glucose 140 H Lactic Acid 3.10 H* Uric Acid Calcium Phosphorus Iron TIBC Erythropoietin Ferritin Total Bilirubin Direct Bilirubin AST ALT Alkaline Phosphatase Lactate Dehydrogenase C-Reactive Protein Serum Total Protein Total Protein Albumin Cowug-6-Dpqydzxse Abnorm Protein Band 1 PEP Interpretation Crossmatch 10/25/16 10/25/16 10/25/16 05:00 05:22 11:58 WBC RBC Hgb Hct MCV MCHC RDW Plt Count Seg Neuts % (Manual) Lymphocytes % (Manual) Nucleated RBC % Seg Neutrophils # Man Lymphocytes # (Manual) Haptoglobin PT INR Fibrinogen Lupus Anticoagulant LA PTT Baseline POC ABG pH POC ABG pCO2 POC ABG pO2 Sodium Potassium Chloride 91.6 L Carbon Dioxide BUN 89 H Creatinine 3.9 H Glucose 150 H POC Glucose 164 H 189 H Lactic Acid Uric Acid Calcium 6.9 L Phosphorus Iron TIBC Erythropoietin Ferritin Total Bilirubin Direct Bilirubin AST ALT Alkaline Phosphatase Lactate Dehydrogenase C-Reactive Protein Serum Total Protein Total Protein Albumin Cvwat-5-Mvihzbkqy Abnorm Protein Band 1 PEP Interpretation Crossmatch 10/25/16 10/25/16 10/26/16 17:56 23:12 04:00 WBC RBC Hgb Hct MCV MCHC RDW Plt Count Seg Neuts % (Manual) Lymphocytes % (Manual) Nucleated RBC % Seg Neutrophils # Man Lymphocytes # (Manual) Haptoglobin PT INR Fibrinogen Lupus Anticoagulant LA PTT Baseline POC ABG pH POC ABG pCO2 POC ABG pO2 Sodium 135 L Potassium Chloride 90.7 L Carbon Dioxide BUN 64 H Creatinine 2.9 H Glucose 132 H POC Glucose 156 H 133 H Lactic Acid Uric Acid Calcium 7.3 L Phosphorus Iron TIBC Erythropoietin Ferritin Total Bilirubin Direct Bilirubin AST ALT Alkaline Phosphatase Lactate Dehydrogenase C-Reactive Protein Serum Total Protein Total Protein Albumin Bxszm-0-Torqismkg Abnorm Protein Band 1 PEP Interpretation Crossmatch 10/26/16 10/26/16 10/26/16 05:14 06:15 11:51 WBC 18.6 H RBC 3.15 L Hgb 9.6 L Hct 29.0 L MCV MCHC RDW 17.8 H Plt Count 71 L Seg Neuts % (Manual) 85.0 H Lymphocytes % (Manual) 1.0 L Nucleated RBC % Seg Neutrophils # Man 15.8 H Lymphocytes # (Manual) 0.2 L Haptoglobin PT INR Fibrinogen Lupus Anticoagulant LA PTT Baseline POC ABG pH POC ABG pCO2 POC ABG pO2 Sodium Potassium Chloride Carbon Dioxide BUN Creatinine Glucose POC Glucose 130 H 139 H Lactic Acid Uric Acid Calcium Phosphorus Iron TIBC Erythropoietin Ferritin Total Bilirubin Direct Bilirubin AST ALT Alkaline Phosphatase Lactate Dehydrogenase C-Reactive Protein Serum Total Protein Total Protein Albumin Dcvmc-6-Hyabhjegm Abnorm Protein Band 1 PEP Interpretation Crossmatch 10/26/16 10/26/16 10/27/16 17:25 23:35 04:10 WBC 16.8 H RBC 3.38 L Hgb 10.1 L Hct 31.0 L MCV MCHC RDW 18.0 H Plt Count 77 L Seg Neuts % (Manual) 92.0 H Lymphocytes % (Manual) 1.0 L Nucleated RBC % 1.0 H Seg Neutrophils # Man 15.5 H Lymphocytes # (Manual) 0.2 L Haptoglobin PT INR Fibrinogen Lupus Anticoagulant LA PTT Baseline POC ABG pH POC ABG pCO2 POC ABG pO2 Sodium Potassium Chloride Carbon Dioxide BUN Creatinine Glucose POC Glucose 118 H 145 H Lactic Acid Uric Acid Calcium Phosphorus Iron TIBC Erythropoietin Ferritin Total Bilirubin Direct Bilirubin AST ALT Alkaline Phosphatase Lactate Dehydrogenase C-Reactive Protein Serum Total Protein Total Protein Albumin Fddmz-3-Yzqjttufs Abnorm Protein Band 1 PEP Interpretation Crossmatch 10/27/16 10/27/16 10/27/16 04:10 05:53 08:14 WBC RBC Hgb Hct MCV MCHC RDW Plt Count Seg Neuts % (Manual) Lymphocytes % (Manual) Nucleated RBC % Seg Neutrophils # Man Lymphocytes # (Manual) Haptoglobin PT 23.0 H INR 2.03 H Fibrinogen Lupus Anticoagulant LA PTT Baseline POC ABG pH POC ABG pCO2 POC ABG pO2 Sodium Potassium Chloride 95.5 L Carbon Dioxide BUN 63 H Creatinine 2.8 H Glucose 112 H POC Glucose 127 H Lactic Acid Uric Acid Calcium 7.5 L Phosphorus Iron TIBC Erythropoietin Ferritin Total Bilirubin Direct Bilirubin AST ALT Alkaline Phosphatase Lactate Dehydrogenase C-Reactive Protein Serum Total Protein Total Protein Albumin Kjtfg-9-Hvusgcinc Abnorm Protein Band 1 PEP Interpretation Crossmatch 10/27/16 10/27/16 10/27/16 11:56 17:47 23:55 WBC RBC Hgb Hct MCV MCHC RDW Plt Count Seg Neuts % (Manual) Lymphocytes % (Manual) Nucleated RBC % Seg Neutrophils # Man Lymphocytes # (Manual) Haptoglobin PT INR Fibrinogen Lupus Anticoagulant LA PTT Baseline POC ABG pH POC ABG pCO2 POC ABG pO2 Sodium Potassium Chloride Carbon Dioxide BUN Creatinine Glucose POC Glucose 113 H 117 H 142 H Lactic Acid Uric Acid Calcium Phosphorus Iron TIBC Erythropoietin Ferritin Total Bilirubin Direct Bilirubin AST ALT Alkaline Phosphatase Lactate Dehydrogenase C-Reactive Protein Serum Total Protein Total Protein Albumin Nbeiz-4-Viwmszqta Abnorm Protein Band 1 PEP Interpretation Crossmatch 10/28/16 10/28/16 10/28/16 05:45 05:45 11:44 WBC 16.6 H RBC 3.18 L Hgb 9.5 L Hct 29.3 L MCV MCHC RDW 17.6 H Plt Count 83 L Seg Neuts % (Manual) 87.0 H Lymphocytes % (Manual) 3.0 L Nucleated RBC % Seg Neutrophils # Man 14.4 H Lymphocytes # (Manual) 0.5 L Haptoglobin PT INR Fibrinogen Lupus Anticoagulant LA PTT Baseline POC ABG pH POC ABG pCO2 POC ABG pO2 Sodium Potassium Chloride 94.6 L Carbon Dioxide 21 L BUN 90 H Creatinine 3.9 H Glucose 152 H POC Glucose 151 H Lactic Acid Uric Acid Calcium 6.9 L Phosphorus Iron TIBC Erythropoietin Ferritin Total Bilirubin Direct Bilirubin AST ALT Alkaline Phosphatase Lactate Dehydrogenase C-Reactive Protein Serum Total Protein Total Protein Albumin Waqed-1-Goxnzwcqj Abnorm Protein Band 1 PEP Interpretation Crossmatch 10/28/16 10/28/16 10/29/16 17:31 23:47 04:53 WBC RBC Hgb Hct MCV MCHC RDW Plt Count Seg Neuts % (Manual) Lymphocytes % (Manual) Nucleated RBC % Seg Neutrophils # Man Lymphocytes # (Manual) Haptoglobin PT INR Fibrinogen Lupus Anticoagulant LA PTT Baseline POC ABG pH POC ABG pCO2 POC ABG pO2 Sodium Potassium Chloride Carbon Dioxide BUN Creatinine Glucose POC Glucose 184 H 124 H 153 H Lactic Acid Uric Acid Calcium Phosphorus Iron TIBC Erythropoietin Ferritin Total Bilirubin Direct Bilirubin AST ALT Alkaline Phosphatase Lactate Dehydrogenase C-Reactive Protein Serum Total Protein Total Protein Albumin Ccujx-5-Zgzyzzjfn Abnorm Protein Band 1 PEP Interpretation Crossmatch 10/29/16 10/29/16 10/29/16 06:15 06:15 10:58 WBC 14.1 H RBC 3.15 L Hgb 9.6 L Hct 29.1 L MCV MCHC RDW 17.9 H Plt Count 73 L Seg Neuts % (Manual) 93.0 H Lymphocytes % (Manual) 4.0 L Nucleated RBC % Seg Neutrophils # Man 13.1 H Lymphocytes # (Manual) 0.6 L Haptoglobin PT INR Fibrinogen Lupus Anticoagulant LA PTT Baseline POC ABG pH POC ABG pCO2 POC ABG pO2 Sodium Potassium Chloride Carbon Dioxide BUN 58 H Creatinine 2.7 H Glucose 146 H POC Glucose 134 H Lactic Acid Uric Acid Calcium 7.4 L Phosphorus 5.00 H Iron TIBC Erythropoietin Ferritin Total Bilirubin Direct Bilirubin AST ALT Alkaline Phosphatase Lactate Dehydrogenase C-Reactive Protein Serum Total Protein Total Protein Albumin Kgnjv-2-Gfvomtgdj Abnorm Protein Band 1 PEP Interpretation Crossmatch 10/29/16 10/29/16 10/30/16 17:06 23:28 05:16 WBC RBC Hgb Hct MCV MCHC RDW Plt Count Seg Neuts % (Manual) Lymphocytes % (Manual) Nucleated RBC % Seg Neutrophils # Man Lymphocytes # (Manual) Haptoglobin PT INR Fibrinogen Lupus Anticoagulant LA PTT Baseline POC ABG pH POC ABG pCO2 POC ABG pO2 Sodium Potassium Chloride Carbon Dioxide BUN Creatinine Glucose POC Glucose 158 H 133 H 147 H Lactic Acid Uric Acid Calcium Phosphorus Iron TIBC Erythropoietin Ferritin Total Bilirubin Direct Bilirubin AST ALT Alkaline Phosphatase Lactate Dehydrogenase C-Reactive Protein Serum Total Protein Total Protein Albumin Jfmoq-2-Ptywfeity Abnorm Protein Band 1 PEP Interpretation Crossmatch 10/30/16 10/30/16 10/30/16 06:35 06:35 12:08 WBC 13.0 H RBC 3.08 L Hgb 9.3 L Hct 28.7 L MCV MCHC RDW 18.4 H Plt Count 73 L Seg Neuts % (Manual) Lymphocytes % (Manual) Nucleated RBC % Seg Neutrophils # Man Lymphocytes # (Manual) Haptoglobin PT INR Fibrinogen Lupus Anticoagulant LA PTT Baseline POC ABG pH POC ABG pCO2 POC ABG pO2 Sodium Potassium Chloride Carbon Dioxide BUN 86 H Creatinine 3.5 H Glucose 132 H POC Glucose 134 H Lactic Acid Uric Acid Calcium 7.1 L Phosphorus 5.90 H Iron TIBC Erythropoietin Ferritin Total Bilirubin Direct Bilirubin AST ALT Alkaline Phosphatase Lactate Dehydrogenase C-Reactive Protein Serum Total Protein Total Protein Albumin Qjnkr-6-Haetuphmk Abnorm Protein Band 1 PEP Interpretation Crossmatch 10/30/16 10/30/16 10/31/16 18:02 23:31 05:21 WBC RBC Hgb Hct MCV MCHC RDW Plt Count Seg Neuts % (Manual) Lymphocytes % (Manual) Nucleated RBC % Seg Neutrophils # Man Lymphocytes # (Manual) Haptoglobin PT INR Fibrinogen Lupus Anticoagulant LA PTT Baseline POC ABG pH POC ABG pCO2 POC ABG pO2 Sodium Potassium Chloride Carbon Dioxide BUN Creatinine Glucose POC Glucose 142 H 152 H 152 H Lactic Acid Uric Acid Calcium Phosphorus Iron TIBC Erythropoietin Ferritin Total Bilirubin Direct Bilirubin AST ALT Alkaline Phosphatase Lactate Dehydrogenase C-Reactive Protein Serum Total Protein Total Protein Albumin Hjeyh-6-Rlisougqe Abnorm Protein Band 1 PEP Interpretation Crossmatch 10/31/16 10/31/16 10/31/16 06:21 06:21 12:12 WBC 11.9 H RBC 2.82 L Hgb 8.6 L Hct 26.4 L MCV MCHC RDW 17.8 H Plt Count 56 L Seg Neuts % (Manual) Lymphocytes % (Manual) 0 L Nucleated RBC % Seg Neutrophils # Man 10.9 H Lymphocytes # (Manual) 0.0 L Haptoglobin PT INR Fibrinogen Lupus Anticoagulant LA PTT Baseline POC ABG pH POC ABG pCO2 POC ABG pO2 Sodium Potassium Chloride Carbon Dioxide 21 L BUN 107 H Creatinine 4.2 H Glucose 137 H POC Glucose 142 H Lactic Acid Uric Acid Calcium 7.2 L Phosphorus 6.50 H Iron TIBC Erythropoietin Ferritin Total Bilirubin Direct Bilirubin AST ALT Alkaline Phosphatase Lactate Dehydrogenase C-Reactive Protein Serum Total Protein Total Protein Albumin Lmnsz-5-Zwthssaej Abnorm Protein Band 1 PEP Interpretation Crossmatch 10/31/16 10/31/16 11/01/16 17:34 23:46 05:15 WBC RBC Hgb Hct MCV MCHC RDW Plt Count Seg Neuts % (Manual) Lymphocytes % (Manual) Nucleated RBC % Seg Neutrophils # Man Lymphocytes # (Manual) Haptoglobin PT INR Fibrinogen Lupus Anticoagulant LA PTT Baseline POC ABG pH POC ABG pCO2 POC ABG pO2 Sodium Potassium Chloride Carbon Dioxide BUN Creatinine Glucose POC Glucose 180 H 131 H 148 H Lactic Acid Uric Acid Calcium Phosphorus Iron TIBC Erythropoietin Ferritin Total Bilirubin Direct Bilirubin AST ALT Alkaline Phosphatase Lactate Dehydrogenase C-Reactive Protein Serum Total Protein Total Protein Albumin Jyblq-1-Fjkfjambt Abnorm Protein Band 1 PEP Interpretation Crossmatch 11/01/16 11/01/16 11/01/16 06:00 06:00 11:45 WBC RBC 2.66 L Hgb 8.1 L Hct 24.8 L MCV MCHC RDW 17.7 H Plt Count 47 L Seg Neuts % (Manual) 88.0 H Lymphocytes % (Manual) 0 L Nucleated RBC % Seg Neutrophils # Man Lymphocytes # (Manual) 0.0 L Haptoglobin PT INR Fibrinogen Lupus Anticoagulant LA PTT Baseline POC ABG pH POC ABG pCO2 POC ABG pO2 Sodium 134 L Potassium Chloride 95.6 L Carbon Dioxide BUN 90 H Creatinine 3.5 H Glucose 154 H POC Glucose 169 H Lactic Acid Uric Acid Calcium 7.1 L Phosphorus 5.50 H Iron TIBC Erythropoietin Ferritin Total Bilirubin Direct Bilirubin AST ALT Alkaline Phosphatase Lactate Dehydrogenase C-Reactive Protein Serum Total Protein Total Protein Albumin Vcbqq-8-Vnqppfbzl Abnorm Protein Band 1 PEP Interpretation Crossmatch 11/01/16 11/01/16 11/01/16 18:33 20:55 23:51 WBC RBC Hgb Hct MCV MCHC RDW Plt Count Seg Neuts % (Manual) Lymphocytes % (Manual) Nucleated RBC % Seg Neutrophils # Man Lymphocytes # (Manual) Haptoglobin PT INR Fibrinogen Lupus Anticoagulant LA PTT Baseline POC ABG pH POC ABG pCO2 POC ABG pO2 Sodium Potassium Chloride Carbon Dioxide BUN Creatinine Glucose POC Glucose 128 H 144 H Lactic Acid 3.10 H* Uric Acid Calcium Phosphorus Iron TIBC Erythropoietin Ferritin Total Bilirubin Direct Bilirubin AST ALT Alkaline Phosphatase Lactate Dehydrogenase C-Reactive Protein Serum Total Protein Total Protein Albumin Emyjy-7-Ukkdoshkm Abnorm Protein Band 1 PEP Interpretation Crossmatch 11/02/16 11/02/16 11/02/16 05:15 05:15 05:24 WBC RBC 2.69 L Hgb 8.2 L Hct 25.1 L MCV MCHC RDW 16.9 H Plt Count 42 L Seg Neuts % (Manual) 94.0 H Lymphocytes % (Manual) 0 L Nucleated RBC % Seg Neutrophils # Man Lymphocytes # (Manual) 0.0 L Haptoglobin PT INR Fibrinogen Lupus Anticoagulant LA PTT Baseline POC ABG pH POC ABG pCO2 POC ABG pO2 Sodium 135 L Potassium Chloride 97.7 L Carbon Dioxide BUN 67 H Creatinine 2.8 H Glucose 107 H POC Glucose 119 H Lactic Acid Uric Acid Calcium 7.3 L Phosphorus 4.90 H Iron TIBC Erythropoietin Ferritin Total Bilirubin Direct Bilirubin AST ALT Alkaline Phosphatase Lactate Dehydrogenase C-Reactive Protein Serum Total Protein Total Protein Albumin Nozta-7-Bvyeryjav Abnorm Protein Band 1 PEP Interpretation Crossmatch 11/02/16 11/02/16 11/02/16 06:07 09:26 10:00 WBC RBC 2.83 L Hgb 8.7 L Hct 26.5 L MCV MCHC RDW 17.4 H Plt Count 46 L Seg Neuts % (Manual) Lymphocytes % (Manual) Nucleated RBC % Seg Neutrophils # Man Lymphocytes # (Manual) Haptoglobin PT 19.9 H INR 1.69 H Fibrinogen Lupus Anticoagulant LA PTT Baseline POC ABG pH POC ABG pCO2 POC ABG pO2 Sodium Potassium Chloride Carbon Dioxide BUN Creatinine Glucose POC Glucose 111 H Lactic Acid Uric Acid Calcium Phosphorus Iron TIBC Erythropoietin Ferritin Total Bilirubin Direct Bilirubin AST ALT Alkaline Phosphatase Lactate Dehydrogenase C-Reactive Protein Serum Total Protein Total Protein Albumin Fiuec-1-Xogmggvpu Abnorm Protein Band 1 PEP Interpretation Crossmatch 11/03/16 11/03/16 11/03/16 00:02 03:25 03:25 WBC RBC 2.34 L Hgb 7.0 L Hct 21.9 L MCV MCHC RDW 17.6 H Plt Count 49 L Seg Neuts % (Manual) 86.0 H Lymphocytes % (Manual) 4.0 L Nucleated RBC % Seg Neutrophils # Man Lymphocytes # (Manual) 0.3 L Haptoglobin PT INR Fibrinogen Lupus Anticoagulant LA PTT Baseline POC ABG pH POC ABG pCO2 POC ABG pO2 Sodium 136 L Potassium Chloride 94.6 L Carbon Dioxide 21 L BUN 84 H Creatinine 3.2 H Glucose 116 H POC Glucose 114 H Lactic Acid Uric Acid Calcium 7.0 L Phosphorus 5.80 H Iron TIBC Erythropoietin Ferritin Total Bilirubin Direct Bilirubin AST ALT Alkaline Phosphatase Lactate Dehydrogenase C-Reactive Protein Serum Total Protein Total Protein Albumin Wrdjo-7-Jgsouecfv Abnorm Protein Band 1 PEP Interpretation Crossmatch 11/03/16 11/03/16 11/03/16 03:25 11:05 13:02 WBC RBC Hgb Hct MCV MCHC RDW Plt Count Seg Neuts % (Manual) Lymphocytes % (Manual) Nucleated RBC % Seg Neutrophils # Man Lymphocytes # (Manual) Haptoglobin PT 22.5 H INR 1.98 H Fibrinogen Lupus Anticoagulant LA PTT Baseline POC ABG pH POC ABG pCO2 POC ABG pO2 Sodium Potassium Chloride Carbon Dioxide BUN Creatinine Glucose POC Glucose 165 H Lactic Acid Uric Acid Calcium Phosphorus Iron TIBC Erythropoietin Ferritin Total Bilirubin Direct Bilirubin AST ALT Alkaline Phosphatase Lactate Dehydrogenase C-Reactive Protein Serum Total Protein Total Protein Albumin Zeqpy-2-Rhyvnuxua Abnorm Protein Band 1 PEP Interpretation Crossmatch See Detail 11/03/16 11/04/16 11/04/16 18:13 00:27 05:40 WBC RBC Hgb Hct MCV MCHC RDW Plt Count Seg Neuts % (Manual) Lymphocytes % (Manual) Nucleated RBC % Seg Neutrophils # Man Lymphocytes # (Manual) Haptoglobin PT 20.3 H INR 1.74 H Fibrinogen Lupus Anticoagulant LA PTT Baseline POC ABG pH POC ABG pCO2 POC ABG pO2 Sodium Potassium Chloride Carbon Dioxide BUN Creatinine Glucose POC Glucose 163 H 108 H Lactic Acid Uric Acid Calcium Phosphorus Iron TIBC Erythropoietin Ferritin Total Bilirubin Direct Bilirubin AST ALT Alkaline Phosphatase Lactate Dehydrogenase C-Reactive Protein Serum Total Protein Total Protein Albumin Hxapa-2-Bmzhsgslk Abnorm Protein Band 1 PEP Interpretation Crossmatch 11/04/16 11/04/16 11/04/16 11:41 14:48 17:58 WBC RBC Hgb Hct MCV MCHC RDW Plt Count Seg Neuts % (Manual) Lymphocytes % (Manual) Nucleated RBC % Seg Neutrophils # Man Lymphocytes # (Manual) Haptoglobin PT INR Fibrinogen Lupus Anticoagulant LA PTT Baseline POC ABG pH POC ABG pCO2 POC ABG pO2 107 H Sodium Potassium Chloride Carbon Dioxide BUN Creatinine Glucose POC Glucose 175 H 106 H Lactic Acid Uric Acid Calcium Phosphorus Iron TIBC Erythropoietin Ferritin Total Bilirubin Direct Bilirubin AST ALT Alkaline Phosphatase Lactate Dehydrogenase C-Reactive Protein Serum Total Protein Total Protein Albumin Mlujv-2-Tbzspgqgo Abnorm Protein Band 1 PEP Interpretation Crossmatch 11/05/16 11/05/16 11/05/16 00:21 04:55 05:40 WBC RBC 2.60 L Hgb 8.1 L Hct 24.6 L MCV 95 H MCHC RDW 16.4 H Plt Count 34 L Seg Neuts % (Manual) Lymphocytes % (Manual) 1.0 L Nucleated RBC % Seg Neutrophils # Man Lymphocytes # (Manual) 0.1 L Haptoglobin PT INR Fibrinogen Lupus Anticoagulant LA PTT Baseline POC ABG pH POC ABG pCO2 POC ABG pO2 Sodium Potassium Chloride Carbon Dioxide BUN Creatinine Glucose POC Glucose 117 H 143 H Lactic Acid Uric Acid Calcium Phosphorus Iron TIBC Erythropoietin Ferritin Total Bilirubin Direct Bilirubin AST ALT Alkaline Phosphatase Lactate Dehydrogenase C-Reactive Protein Serum Total Protein Total Protein Albumin Pkjnk-8-Mlpbiljlp Abnorm Protein Band 1 PEP Interpretation Crossmatch 11/05/16 11/05/16 06:00 11:20 WBC RBC Hgb Hct MCV MCHC RDW Plt Count Seg Neuts % (Manual) Lymphocytes % (Manual) Nucleated RBC % Seg Neutrophils # Man Lymphocytes # (Manual) Haptoglobin PT INR Fibrinogen Lupus Anticoagulant LA PTT Baseline POC ABG pH POC ABG pCO2 POC ABG pO2 Sodium Potassium Chloride Carbon Dioxide BUN 46 H Creatinine 2.0 H Glucose 166 H POC Glucose 147 H Lactic Acid Uric Acid Calcium 7.3 L Phosphorus Iron TIBC Erythropoietin Ferritin Total Bilirubin Direct Bilirubin AST ALT Alkaline Phosphatase Lactate Dehydrogenase C-Reactive Protein Serum Total Protein Total Protein Albumin Vvbtl-7-Lnqhukhfx Abnorm Protein Band 1 PEP Interpretation Crossmatch Allied health notes reviewed: RT
[2016-11-05 21:48] LABS: ISTAT Base Excess 1; ISTAT PCO2 34.8 (35-45); ISTAT PH 7.464 (7.35-7.45); ISTAT PO2 219 (80-105); ISTAT SO2 100; ISTAT TCO2 26
--- NOTE | 2016-11-06 00:06 | Consultation ---
History of Present Illness - Reason for Consult Consult date: 11/05/16 - History of Present Illness Patient see/examine, case d/w his , including update so far. She tells me of her husbands encounter with contaminated water [place] last [place].Will re order [id number], since no result is fort coming from the previously ordered ones. Past History Past Medical History: hypertension, other (Had shingles in November 25-) Past Surgical History: No surgical history Social history: , full code, other (Patienti s and lives with his ). denies: smoking, alcohol abuse, prescription drug abuse, IV drug use Family history: no significant family history Medications and Allergies Allergies Allergy/AdvReac Type Severity Reaction Status Date / Time No Known Allergies Allergy Unverified 10/13/16 09:41 Home Medications Medication Instructions Recorded Confirmed Last Taken Type Naproxen Sodium [Aleve TAB] 2 tab PO Q8H PRN 10/13/16 10/13/16 10/12/16 14:00 History Active Meds: Active Medications Acetaminophen (Tylenol) 1,000 mg SD Q4H PRN PRN Reason: Pain, Mild (1-3) Last Admin: 10/20/16 15:40 Dose: 1,000 mg Acetaminophen (Tylenol) 650 mg FEEDTUBE Q6H PRN PRN Reason: Pain, Mild (1-3) Last Admin: 10/24/16 10:56 Dose: 650 mg Alteplase, Recombinant (Cathflo) 4 mg IV ROD PRN PRN Reason: hemodialysis Last Admin: 11/02/16 09:37 Dose: 4 mg Lipase/Protease/Amylase (Pancreaze Dr 10,500 Unit) 1 each FEEDTUBE PRN PRN PRN Reason: For Clogged Feeding Tube Dextrose (D50w (25gm)) 25 ml IV PRN PRN PRN Reason: Hypoglycemia Last Admin: 10/18/16 07:20 Dose: 25 ml Diphenhydramine HCl (Benadryl) 50 mg IV Q6H PRN PRN Reason: Itching Last Admin: 10/24/16 10:57 Dose: 50 mg Famotidine (Pepcid) 20 mg PO Q24H EDWINA Last Admin: 11/05/16 09:15 Dose: 20 mg Haloperidol Lactate (Haldol) 5 mg IM Q6H PRN PRN Reason: Agitation Last Admin: 10/14/16 21:11 Dose: 5 mg Heparin Sodium (Porcine) (Heparin) 10,000 unit IV ROD PRN PRN Reason: for plasmapheresis- vascath Last Admin: 11/03/16 17:49 Dose: 10,000 unit Hydrocortisone Sodium Succinate (Solu-Cortef) 60 mg IV DAILY EDWINA Stop: 11/06/16 10:01 Hydrophilic Ointment (Vaseline Lip Therapy) 1 applic TP Q2H PRN PRN Reason: Dry Lips Propofol (Diprivan 10 Mg/Ml) 1,000 mg in 100 mls @ 1.827 mls/hr IV TITR EDWINA; 5 MCG/KG/MIN PRN Reason: Protocol Last Titration: 10/20/16 10:12 Dose: 0 mcg/kg/min, 0 mls/hr Fentanyl Citrate (Fentanyl Drip Premix) 2,000 mcg in 100 mls @ 3.045 mls/hr IV TITR EDWINA; 1 MCG/KG/HR PRN Reason: Protocol Sodium Chloride (Nacl 0.9%) 100 mls @ 999 mls/hr IV ROD PRN PRN Reason: Hypotension Insulin Aspart (Novolog) 0 units SUB-Q Q6HR EDWINA PRN Reason: Protocol Last Admin: 11/05/16 18:32 Dose: 3 units Labetalol HCl (Normodyne) 20 mg IV Q6H PRN PRN Reason: Hypertension Last Admin: 10/25/16 05:33 Dose: 20 mg Loperamide HCl (Imodium A-D) 2 mg PO Q2H PRN PRN Reason: Diarrhea Last Admin: 11/03/16 14:09 Dose: 2 mg Metoprolol Tartrate (Lopressor) 25 mg PO BID EDWINA Last Admin: 11/05/16 09:15 Dose: 25 mg Multi-Ingred Cream/Lotion/Oil/Oint (Artificial Tears Ophth Oint) 1 applic OU Q4H PRN PRN Reason: Dry Eye(s) Ondansetron HCl (Zofran) 4 mg IV Q8H PRN PRN Reason: Nausea And Vomiting Phytonadione (Vitamin K *Oral Liquid*) 10 mg FEEDTUBE DAILY EDWINA Stop: 11/06/16 13:59 Last Admin: 11/05/16 09:15 Dose: 10 mg Simple Syrup (Simple Syrup) 15 ml FEEDTUBE PRN PRN PRN Reason: Hypoglycemia Simple Syrup (Simple Syrup) 30 ml FEEDTUBE PRN PRN PRN Reason: Hypoglycemia Sodium Bicarbonate (Sodium Bicarbonate) 325 mg FEEDTUBE PRN PRN PRN Reason: For Clogged Feeding Tube Last Admin: 11/02/16 11:08 Dose: 325 mg Sodium Chloride (Sodium Chloride Flush Syringe 10 Ml) 10 ml IV PRN PRN PRN Reason: LINE FLUSH Last Admin: 10/17/16 20:45 Dose: 10 ml Review of Systems Constitutional: weakness Neurological: other (Very minimal response.) Exam - Constitutional Vitals: Temp Pulse Resp BP Pulse Ox 99 F 98 H 27 H 110/81 100 11/05/16 20:09 11/05/16 18:00 11/05/16 18:00 11/05/16 18:00 11/05/16 21:48 General appearance: Present: severe distress - EENT Eyes: Present: PERRL ENT: hearing intact, clear oral mucosa - Neck Neck: Present: supple, normal ROM - Cardiovascular Heart Sounds: Present: S1 & S2. Absent: rub, click - Extremities Extremities: pulses symmetrical, No edema Peripheral Pulses: within normal limits - Abdominal General gastrointestinal: Present: soft, non-tender, non-distended, normal bowel sounds Male genitourinary: Present: deferred - Rectal Rectal Exam: deferred - Integumentary Integumentary: Present: clear, warm, dry Results - Labs CBC & Chem 7: 11/05/16 05:40 11/05/16 06:00 Labs: Abnormal lab results 11/04/16 11/05/16 11/05/16 Range/Units 11:41 00:21 04:55 RBC (3.65-5.03) M/mm3 Hgb (11.8-15.2) gm/dl Hct (35.5-45.6) % MCV (84-94) fl RDW (13.2-15.2) % Plt Count (140-440) K/mm3 Lymphocytes % (Manual) (13.4-35.0) % Lymphocytes # (Manual) (1.2-5.4) K/mm3 POC ABG pH (7.35-7.45) POC ABG pCO2 (35-45) POC ABG pO2 (80-105) BUN (9-20) mg/dL Creatinine (0.8-1.5) mg/dL Glucose (75-100) mg/dL POC Glucose 175 H 117 H 143 H (70-105) Calcium (8.4-10.2) mg/dL 11/05/16 11/05/16 11/05/16 Range/Units 05:40 06:00 11:20 RBC 2.60 L (3.65-5.03) M/mm3 Hgb 8.1 L (11.8-15.2) gm/dl Hct 24.6 L (35.5-45.6) % MCV 95 H (84-94) fl RDW 16.4 H (13.2-15.2) % Plt Count 34 L (140-440) K/mm3 Lymphocytes % (Manual) 1.0 L (13.4-35.0) % Lymphocytes # (Manual) 0.1 L (1.2-5.4) K/mm3 POC ABG pH (7.35-7.45) POC ABG pCO2 (35-45) POC ABG pO2 (80-105) BUN 46 H (9-20) mg/dL Creatinine 2.0 H (0.8-1.5) mg/dL Glucose 166 H (75-100) mg/dL POC Glucose 147 H (70-105) Calcium 7.3 L (8.4-10.2) mg/dL 11/05/16 11/05/16 Range/Units 18:03 21:31 RBC (3.65-5.03) M/mm3 Hgb (11.8-15.2) gm/dl Hct (35.5-45.6) % MCV (84-94) fl RDW (13.2-15.2) % Plt Count (140-440) K/mm3 Lymphocytes % (Manual) (13.4-35.0) % Lymphocytes # (Manual) (1.2-5.4) K/mm3 POC ABG pH 7.464 H (7.35-7.45) POC ABG pCO2 34.8 L (35-45) POC ABG pO2 219 H (80-105) BUN (9-20) mg/dL Creatinine (0.8-1.5) mg/dL Glucose (75-100) mg/dL POC Glucose 178 H (70-105) Calcium (8.4-10.2) mg/dL Assessment and Plan - Patient Problems (1) Anemia Current Visit: Yes Status: Acute Qualifiers: Anemia type: unspecified type Iron deficiency anemia type: I Vitamin B12 deficiency anemia type: V Folate deficiency anemia type: F Bone marrow failure anemia type: B Hemolytic anemia type: H Other causes of anemia: O Chronic kidney disease stage: C Qualified Code(s): D64.9 - Anemia, unspecified Plan to address problem: will replace if less than 7.0 (2) Leucopenia Current Visit: Yes Status: Acute Qualifiers: Leukopenia type: unspecified Neutropenia type: N Qualified Code(s): D72.819 - Decreased white blood cell count, unspecified Plan to address problem: same as above. resolved. Same as above (3) Renal failure Current Visit: Yes Status: Acute Qualifiers: Renal failure chronicity: acute Acute renal failure type: unspecified Chronic kidney disease stage: C Qualified Code(s): N17.9 - Acute kidney failure, unspecified Plan to address problem: See w/up, and renal service. see notes Follow glass vial filler.
[2016-11-06 08:36] LABS: Hematocrit 26.4 % (35.5-45.6); Hemoglobin 8.7 gm/dl (11.8-15.2); Mean Corpuscular HGB Conc 33 % (32-34); Mean Corpuscular Hemoglobin 31 pg (28-32); Mean Corpuscular Volume 95 fl (84-94); Red Blood Count 2.78 M/mm3 (3.65-5.03); Red Cell Distribution Width 17.3 % (13.2-15.2); White Blood Count 8.6 K/mm3 (4.5-11.0)
[2016-11-06 08:42] LABS: Platelet Count 34 K/mm3 (140-440)
[2016-11-06 08:53] LABS: Albumin 1.9 g/dL (3.9-5); Albumin/Globulin Ratio 0.6 %; Bilirubin,Total 0.9 mg/dL (0.1-1.2); Calcium 7.2 mg/dL (8.4-10.2); Chloride 97.8 mmol/L (98-107); Potassium 3.9 mmol/L (3.6-5.0); Total Protein 5.1 g/dL (6.3-8.2)
[2016-11-06] MEDS: PEPCID PO SCH (10:15)
[2016-11-06] MEDS: LOPRESSOR PO SCH ×2 (10:38→22:04)
[2016-11-06] MEDS: VITAMIN K *ORAL LIQUID FEEDTUBE SCH (10:40)
--- NOTE | 2016-11-06 11:43 | Progress Note ---
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 - continue HD/UF per nephrology recs - follow I's and O's (no urine in do bag) - correct electrolytes prn - avoid nephrotoxins - per nephrology otherwise (3) Metabolic acidosis Current Visit: Yes Status: Acute Plan to address problem: - mixed etiology - Lactic Acidosis component resolved - sepsis may have been driving force for that - RAJESH component - continue HD/UF per nephrology prescription - complete Anti-infectives per ID recs (4) CHF (congestive heart failure) Current Visit: Yes Status: Acute Qualifiers: Congestive heart failure type: C Congestive heart failure chronicity: C Plan to address problem: - ECHO consistent with possible infiltrating disease - cardiology consulted - EF 30& - s/p volume resuscitation for sepsis - per cardiology otherwise - JONATHAN negative (5) Pancytopenia Current Visit: Yes Status: Acute Plan to address problem: - hematology on case - continuing plasmapheresis - may need bone marrow evaluation - follow platelet count (seems to be trending back down) (6) Acute encephalopathy Current Visit: Yes Status: Acute Plan to address problem: - CT brain negative - likely toxic-metabolic encephalopathy element also - MRI abnormal - neurology evaluation ongoing - following clinically (7) Hypoglycemia Current Visit: Yes Status: Acute Plan to address problem: - improved - suspect sepsis related element - will continue systemic steroids but taper - also continue enteral nutrition - continue glycemic control via SSI at this point (8) Sepsis syndrome Current Visit: Yes Status: Acute Plan to address problem: - s/p antibiotic course - ID on case - CRP and lactate much improved - JONATHAN negative - following clinically - c-diff assay negative - Anti-infectives per ID recs (de-escalating now) (9) Discharge planning issues Current Visit: Yes Status: Acute Plan to address problem: - he remains critically ill on life sustaining interventions including MVS and at risk for further deterioration including ...30' CCT Subjective Date of service: 11/06/16 Principal diagnosis: Sepsis Syndrome; MAHA; RAJESH; CHF; TTP Interval history: Seen and examined at bedside; 24 hour events reviewed; nursing and respiratory care staff consulted; no adverse overnight events reported to me; remains on MVS ; weaning tenuously; no emesis or overt aspiration; AMS is persistent Objective Vital Signs - 12hr 11/06/16 11/06/16 11/06/16 00:00 00:25 00:35 Temperature 99.7 F H Pulse Rate 94 H 98 H Respiratory 19 Rate Blood Pressure 97/67 97/67 O2 Sat by Pulse 100 99 Oximetry O2 Sat by Pulse 99 Oximetry [ Assessment] 11/06/16 11/06/16 11/06/16 01:00 02:00 03:00 Temperature Pulse Rate 96 H 94 H 98 H Respiratory 21 21 22 Rate Blood Pressure 94/68 90/63 100/73 O2 Sat by Pulse 99 Oximetry O2 Sat by Pulse Oximetry [ Assessment] 11/06/16 11/06/16 11/06/16 03:59 04:00 04:01 Temperature 99.9 F H 99.9 F H Pulse Rate 100 H Respiratory 18 21 Rate Blood Pressure 100/73 O2 Sat by Pulse 97 Oximetry O2 Sat by Pulse Oximetry [ Assessment] 11/06/16 11/06/16 11/06/16 04:30 05:00 06:00 Temperature Pulse Rate 95 H 96 H 93 H Respiratory 21 21 Rate Blood Pressure 100/73 89/64 94/65 O2 Sat by Pulse 98 Oximetry O2 Sat by Pulse Oximetry [ Assessment] 11/06/16 11/06/16 11/06/16 07:00 08:00 08:04 Temperature 99 F Pulse Rate 93 H 100 H Respiratory 19 25 H Rate Blood Pressure 92/65 97/70 O2 Sat by Pulse 99 95 97 Oximetry O2 Sat by Pulse Oximetry [ Assessment] 11/06/16 11/06/16 11/06/16 08:05 09:00 10:00 Temperature Pulse Rate 99 H 102 H Respiratory 23 27 H Rate Blood Pressure 96/72 92/63 O2 Sat by Pulse 100 99 Oximetry O2 Sat by Pulse 96 Oximetry [ Assessment] 11/06/16 11:00 Temperature Pulse Rate 92 H Respiratory 20 Rate Blood Pressure 93/66 O2 Sat by Pulse 100 Oximetry O2 Sat by Pulse Oximetry [ Assessment] Constitutional: no acute distress, other (lethargic to encephalopathic) Eyes: non-icteric ENT: oropharynx moist Neck: supple, no lymphadenopathy Effort: mildly labored Ascultation: Bilateral: diminished breath sounds, rales Cardiovascular: irregular rhythm Gastrointestinal: normoactive bowel sounds, soft, non-tender, non-distended Integumentary: normal Extremities: no cyanosis, pulses normal, no ischemia or petechiae, edema Neurologic: non-focal exam (grossly), pupils equal and round, unable to assess Psychiatric: other (unable to assess) CBC and BMP: 11/11/16 08:30 11/11/16 08:30 ABG, PT/INR, D-dimer: ABG POC ABG pH 7.464 (7.35-7.45) H 11/05/16 21:31 POC ABG pCO2 34.8 (35-45) L 11/05/16 21:31 POC ABG pO2 219 (80-105) H 11/05/16 21:31 POC ABG HCO3 25.0 11/05/16 21:31 POC ABG Total CO2 26 11/05/16 21:31 POC ABG O2 Sat 100 11/05/16 21:31 PT/INR, D-dimer PT 20.3 Sec. (12.2-14.9) H 11/04/16 05:40 INR 1.74 (0.87-1.13) H 11/04/16 05:40 Abnormal lab findings: Abnormal Labs 10/13/16 10/13/16 10/13/16 14:50 21:40 22:05 WBC RBC Hgb Hct MCV MCHC RDW Plt Count Seg Neuts % (Manual) Lymphocytes % (Manual) Nucleated RBC % Seg Neutrophils # Man Lymphocytes # (Manual) Haptoglobin PT INR Fibrinogen Lupus Anticoagulant LA PTT Baseline POC ABG pH POC ABG pCO2 POC ABG pO2 Sodium Potassium Chloride Carbon Dioxide BUN Creatinine Glucose POC Glucose 52 L 43 L Lactic Acid Uric Acid Calcium Phosphorus Iron TIBC Erythropoietin Ferritin Total Bilirubin Direct Bilirubin AST ALT Alkaline Phosphatase Lactate Dehydrogenase C-Reactive Protein Serum Total Protein 5.6 L Total Protein Albumin 2.2 L Tjuuj-5-Txqbuzpwn 0.5 H Abnorm Protein Band 1 1.4 H PEP Interpretation see below H Crossmatch 10/13/16 10/14/1610/14/17 23:18 03:00 03:00 WBC RBC Hgb Hct MCV MCHC RDW Plt Count Seg Neuts % (Manual) Lymphocytes % (Manual) Nucleated RBC % Seg Neutrophils # Man Lymphocytes # (Manual) Haptoglobin PT INR Fibrinogen Lupus Anticoagulant see below H LA PTT Baseline 55 H POC ABG pH POC ABG pCO2 POC ABG pO2 Sodium Potassium Chloride Carbon Dioxide BUN Creatinine Glucose POC Glucose 113 H Lactic Acid Uric Acid Calcium Phosphorus Iron TIBC Erythropoietin Ferritin Total Bilirubin Direct Bilirubin AST ALT Alkaline Phosphatase Lactate Dehydrogenase 406 H C-Reactive Protein Serum Total Protein Total Protein Albumin Sejtq-2-Hlytfpqtx Abnorm Protein Band 1 PEP Interpretation Crossmatch 10/14/16 10/14/16 10/14/16 03:00 03:00 04:34 WBC 1.3 L* RBC 2.33 L Hgb 7.3 L Hct 21.7 L MCV MCHC RDW 19.8 H Plt Count 99 L Seg Neuts % (Manual) Lymphocytes % (Manual) 3.0 L Nucleated RBC % Seg Neutrophils # Man 0.9 L Lymphocytes # (Manual) 0.0 L Haptoglobin PT INR Fibrinogen Lupus Anticoagulant LA PTT Baseline POC ABG pH POC ABG pCO2 POC ABG pO2 Sodium Potassium Chloride Carbon Dioxide 18 L BUN 73 H Creatinine 9.8 H Glucose 59 L POC Glucose Lactic Acid Uric Acid 8.0 H Calcium 8.2 L Phosphorus 6.60 H Iron 13 L TIBC 160 L Erythropoietin Ferritin Total Bilirubin Direct Bilirubin AST ALT Alkaline Phosphatase Lactate Dehydrogenase C-Reactive Protein Serum Total Protein Total Protein Albumin Jzkae-0-Ghjwwgelm Abnorm Protein Band 1 PEP Interpretation Crossmatch 10/14/16 10/14/16 10/14/16 05:27 06:29 07:34 WBC RBC Hgb Hct MCV MCHC RDW Plt Count Seg Neuts % (Manual) Lymphocytes % (Manual) Nucleated RBC % Seg Neutrophils # Man Lymphocytes # (Manual) Haptoglobin PT INR Fibrinogen Lupus Anticoagulant LA PTT Baseline POC ABG pH POC ABG pCO2 POC ABG pO2 Sodium Potassium Chloride Carbon Dioxide BUN Creatinine Glucose POC Glucose < 40 L 63 L < 40 L Lactic Acid Uric Acid Calcium Phosphorus Iron TIBC Erythropoietin Ferritin Total Bilirubin Direct Bilirubin AST ALT Alkaline Phosphatase Lactate Dehydrogenase C-Reactive Protein Serum Total Protein Total Protein Albumin Mlhoi-7-Jwygvmjwu Abnorm Protein Band 1 PEP Interpretation Crossmatch 10/14/16 10/14/16 10/14/16 09:58 09:58 09:58 WBC RBC Hgb Hct MCV MCHC RDW Plt Count Seg Neuts % (Manual) Lymphocytes % (Manual) Nucleated RBC % Seg Neutrophils # Man Lymphocytes # (Manual) Haptoglobin 218 H PT INR Fibrinogen 557 H Lupus Anticoagulant LA PTT Baseline POC ABG pH POC ABG pCO2 POC ABG pO2 Sodium Potassium Chloride Carbon Dioxide BUN Creatinine Glucose POC Glucose Lactic Acid Uric Acid Calcium Phosphorus Iron TIBC Erythropoietin Ferritin Total Bilirubin 1.30 H Direct Bilirubin 1.1 H AST ALT Alkaline Phosphatase Lactate Dehydrogenase C-Reactive Protein Serum Total Protein Total Protein Albumin Mkjtu-5-Brkddcjch Abnorm Protein Band 1 PEP Interpretation Crossmatch 10/14/16 10/14/16 10/14/16 10:57 11:15 12:52 WBC RBC Hgb Hct MCV MCHC RDW Plt Count Seg Neuts % (Manual) Lymphocytes % (Manual) Nucleated RBC % Seg Neutrophils # Man Lymphocytes # (Manual) Haptoglobin PT INR Fibrinogen Lupus Anticoagulant LA PTT Baseline POC ABG pH POC ABG pCO2 POC ABG pO2 Sodium Potassium Chloride Carbon Dioxide BUN Creatinine Glucose POC Glucose < 40 L < 40 L Lactic Acid 9.60 H* Uric Acid Calcium Phosphorus Iron TIBC Erythropoietin Ferritin Total Bilirubin Direct Bilirubin AST ALT Alkaline Phosphatase Lactate Dehydrogenase C-Reactive Protein Serum Total Protein Total Protein Albumin Bhhmv-8-Rohzasjev Abnorm Protein Band 1 PEP Interpretation Crossmatch 10/14/16 10/14/16 10/14/16 12:52 13:17 14:12 WBC RBC Hgb Hct MCV MCHC RDW Plt Count Seg Neuts % (Manual) Lymphocytes % (Manual) Nucleated RBC % Seg Neutrophils # Man Lymphocytes # (Manual) Haptoglobin PT INR Fibrinogen Lupus Anticoagulant LA PTT Baseline POC ABG pH POC ABG pCO2 POC ABG pO2 Sodium Potassium Chloride Carbon Dioxide BUN Creatinine Glucose POC Glucose < 40 L < 40 L Lactic Acid Uric Acid Calcium Phosphorus Iron TIBC Erythropoietin Ferritin Total Bilirubin Direct Bilirubin AST ALT Alkaline Phosphatase Lactate Dehydrogenase C-Reactive Protein 40.40 H Serum Total Protein Total Protein Albumin Tbcrb-0-Hceijiept Abnorm Protein Band 1 PEP Interpretation Crossmatch 10/14/16 10/14/16 10/14/16 15:02 15:33 15:33 WBC RBC Hgb Hct MCV MCHC RDW Plt Count Seg Neuts % (Manual) Lymphocytes % (Manual) Nucleated RBC % Seg Neutrophils # Man Lymphocytes # (Manual) Haptoglobin PT INR Fibrinogen Lupus Anticoagulant LA PTT Baseline POC ABG pH POC ABG pCO2 POC ABG pO2 Sodium Potassium Chloride Carbon Dioxide BUN Creatinine Glucose 19 L* POC Glucose < 40 L Lactic Acid 11.60 H* Uric Acid Calcium Phosphorus Iron TIBC Erythropoietin Ferritin Total Bilirubin Direct Bilirubin AST ALT Alkaline Phosphatase Lactate Dehydrogenase C-Reactive Protein Serum Total Protein Total Protein Albumin Lwwwl-0-Hssimytks Abnorm Protein Band 1 PEP Interpretation Crossmatch 10/14/16 10/14/16 10/14/16 17:14 18:03 21:25 WBC RBC Hgb Hct MCV MCHC RDW Plt Count Seg Neuts % (Manual) Lymphocytes % (Manual) Nucleated RBC % Seg Neutrophils # Man Lymphocytes # (Manual) Haptoglobin PT 28.9 H INR 2.71 H Fibrinogen Lupus Anticoagulant LA PTT Baseline POC ABG pH POC ABG pCO2 POC ABG pO2 Sodium Potassium Chloride Carbon Dioxide BUN Creatinine Glucose POC Glucose < 40 L 57 L Lactic Acid Uric Acid Calcium Phosphorus Iron TIBC Erythropoietin Ferritin Total Bilirubin Direct Bilirubin AST ALT Alkaline Phosphatase Lactate Dehydrogenase C-Reactive Protein Serum Total Protein Total Protein Albumin Dxuao-8-Fvdgudste Abnorm Protein Band 1 PEP Interpretation Crossmatch 10/15/16 10/15/16 10/15/16 05:32 05:35 05:35 WBC RBC 2.62 L Hgb 8.1 L Hct 25.8 L MCV 98 H D MCHC 31 L RDW 21.2 H Plt Count 61 L Seg Neuts % (Manual) 27.0 L Lymphocytes % (Manual) 10.0 L Nucleated RBC % 2.0 H Seg Neutrophils # Man Lymphocytes # (Manual) 0.8 L Haptoglobin PT INR Fibrinogen Lupus Anticoagulant LA PTT Baseline POC ABG pH POC ABG pCO2 POC ABG pO2 Sodium Potassium Chloride Carbon Dioxide BUN Creatinine Glucose POC Glucose < 40 L Lactic Acid Uric Acid Calcium Phosphorus Iron TIBC Erythropoietin Ferritin Total Bilirubin Direct Bilirubin AST ALT Alkaline Phosphatase Lactate Dehydrogenase 3871 H C-Reactive Protein Serum Total Protein Total Protein Albumin Jnumf-2-Cggegexno Abnorm Protein Band 1 PEP Interpretation Crossmatch 10/15/16 10/15/16 10/15/16 05:35 05:35 05:35 WBC RBC Hgb Hct MCV MCHC RDW Plt Count Seg Neuts % (Manual) Lymphocytes % (Manual) Nucleated RBC % Seg Neutrophils # Man Lymphocytes # (Manual) Haptoglobin PT INR Fibrinogen Lupus Anticoagulant LA PTT Baseline POC ABG pH POC ABG pCO2 POC ABG pO2 Sodium 136 L Potassium 5.3 H D Chloride 91.4 L Carbon Dioxide 6 L* D BUN 57 H Creatinine 7.1 H Glucose 11 L* POC Glucose Lactic Acid 13.60 H* Uric Acid Calcium 7.7 L Phosphorus 10.10 H D Iron TIBC 166 L Erythropoietin Ferritin 9562.0 H Total Bilirubin Direct Bilirubin AST ALT Alkaline Phosphatase Lactate Dehydrogenase C-Reactive Protein Serum Total Protein Total Protein Albumin Yloax-2-Ifoakturs Abnorm Protein Band 1 PEP Interpretation Crossmatch 10/15/16 10/15/16 10/15/16 05:51 06:22 06:52 WBC RBC Hgb Hct MCV MCHC RDW Plt Count Seg Neuts % (Manual) Lymphocytes % (Manual) Nucleated RBC % Seg Neutrophils # Man Lymphocytes # (Manual) Haptoglobin PT INR Fibrinogen Lupus Anticoagulant LA PTT Baseline POC ABG pH 7.189 L POC ABG pCO2 28.9 L POC ABG pO2 Sodium Potassium Chloride Carbon Dioxide BUN Creatinine Glucose POC Glucose 59 L 111 H Lactic Acid Uric Acid Calcium Phosphorus Iron TIBC Erythropoietin Ferritin Total Bilirubin Direct Bilirubin AST ALT Alkaline Phosphatase Lactate Dehydrogenase C-Reactive Protein Serum Total Protein Total Protein Albumin Hnusf-4-Cgpzaswqt Abnorm Protein Band 1 PEP Interpretation Crossmatch 10/15/16 10/15/16 10/15/16 08:00 09:57 11:42 WBC RBC Hgb Hct MCV MCHC RDW Plt Count Seg Neuts % (Manual) Lymphocytes % (Manual) Nucleated RBC % Seg Neutrophils # Man Lymphocytes # (Manual) Haptoglobin PT INR Fibrinogen Lupus Anticoagulant LA PTT Baseline POC ABG pH POC ABG pCO2 POC ABG pO2 Sodium Potassium Chloride Carbon Dioxide BUN Creatinine Glucose POC Glucose 63 L 143 H 203 H Lactic Acid Uric Acid Calcium Phosphorus Iron TIBC Erythropoietin Ferritin Total Bilirubin Direct Bilirubin AST ALT Alkaline Phosphatase Lactate Dehydrogenase C-Reactive Protein Serum Total Protein Total Protein Albumin Jbpcm-3-Cgjkrhxrz Abnorm Protein Band 1 PEP Interpretation Crossmatch 10/15/16 10/15/16 10/15/16 12:00 12:00 13:00 WBC RBC Hgb Hct MCV MCHC RDW Plt Count Seg Neuts % (Manual) Lymphocytes % (Manual) Nucleated RBC % Seg Neutrophils # Man Lymphocytes # (Manual) Haptoglobin <15 L PT INR Fibrinogen Lupus Anticoagulant LA PTT Baseline POC ABG pH POC ABG pCO2 POC ABG pO2 Sodium Potassium Chloride Carbon Dioxide BUN Creatinine Glucose POC Glucose 136 H Lactic Acid 16.30 H* Uric Acid Calcium Phosphorus Iron TIBC Erythropoietin Ferritin Total Bilirubin Direct Bilirubin AST ALT Alkaline Phosphatase Lactate Dehydrogenase C-Reactive Protein Serum Total Protein Total Protein Albumin Qomvp-1-Tkekmhiei Abnorm Protein Band 1 PEP Interpretation Crossmatch 10/15/16 10/15/16 10/15/16 14:06 15:15 16:23 WBC RBC Hgb Hct MCV MCHC RDW Plt Count Seg Neuts % (Manual) Lymphocytes % (Manual) Nucleated RBC % Seg Neutrophils # Man Lymphocytes # (Manual) Haptoglobin PT INR Fibrinogen Lupus Anticoagulant LA PTT Baseline POC ABG pH POC ABG pCO2 POC ABG pO2 Sodium Potassium Chloride Carbon Dioxide BUN Creatinine Glucose POC Glucose 132 H 64 L Lactic Acid 20.40 H* Uric Acid Calcium Phosphorus Iron TIBC Erythropoietin Ferritin Total Bilirubin Direct Bilirubin AST ALT Alkaline Phosphatase Lactate Dehydrogenase C-Reactive Protein Serum Total Protein Total Protein Albumin Fjpuw-3-Jawqcxbtg Abnorm Protein Band 1 PEP Interpretation Crossmatch 10/15/16 10/15/16 10/15/16 16:40 17:00 17:10 WBC RBC Hgb Hct MCV MCHC RDW Plt Count Seg Neuts % (Manual) Lymphocytes % (Manual) Nucleated RBC % Seg Neutrophils # Man Lymphocytes # (Manual) Haptoglobin PT INR Fibrinogen Lupus Anticoagulant LA PTT Baseline POC ABG pH 7.323 L POC ABG pCO2 25.8 L POC ABG pO2 135 H Sodium Potassium Chloride Carbon Dioxide BUN Creatinine Glucose POC Glucose 159 H Lactic Acid 20.20 H* Uric Acid Calcium Phosphorus Iron TIBC Erythropoietin Ferritin Total Bilirubin Direct Bilirubin AST ALT Alkaline Phosphatase Lactate Dehydrogenase C-Reactive Protein Serum Total Protein Total Protein Albumin Wctdw-2-Kpevgdkox Abnorm Protein Band 1 PEP Interpretation Crossmatch 10/15/16 10/15/16 10/15/16 17:46 17:53 18:45 WBC RBC Hgb Hct MCV MCHC RDW Plt Count Seg Neuts % (Manual) Lymphocytes % (Manual) Nucleated RBC % Seg Neutrophils # Man Lymphocytes # (Manual) Haptoglobin PT INR Fibrinogen Lupus Anticoagulant LA PTT Baseline POC ABG pH POC ABG pCO2 POC ABG pO2 Sodium Potassium Chloride Carbon Dioxide BUN Creatinine Glucose POC Glucose 126 H 143 H Lactic Acid 21.40 H* Uric Acid Calcium Phosphorus Iron TIBC Erythropoietin Ferritin Total Bilirubin Direct Bilirubin AST ALT Alkaline Phosphatase Lactate Dehydrogenase C-Reactive Protein Serum Total Protein Total Protein Albumin Hvalw-0-Faebjoxcm Abnorm Protein Band 1 PEP Interpretation Crossmatch 10/15/16 10/15/16 10/16/16 20:03 22:59 00:06 WBC RBC Hgb Hct MCV MCHC RDW Plt Count Seg Neuts % (Manual) Lymphocytes % (Manual) Nucleated RBC % Seg Neutrophils # Man Lymphocytes # (Manual) Haptoglobin PT INR Fibrinogen Lupus Anticoagulant LA PTT Baseline POC ABG pH POC ABG pCO2 POC ABG pO2 Sodium Potassium Chloride Carbon Dioxide BUN Creatinine Glucose POC Glucose 66 L 53 L 126 H Lactic Acid Uric Acid Calcium Phosphorus Iron TIBC Erythropoietin Ferritin Total Bilirubin Direct Bilirubin AST ALT Alkaline Phosphatase Lactate Dehydrogenase C-Reactive Protein Serum Total Protein Total Protein Albumin Vjlea-2-Beedjkqww Abnorm Protein Band 1 PEP Interpretation Crossmatch 10/16/16 10/16/16 10/16/16 01:03 03:55 04:00 WBC RBC Hgb Hct MCV MCHC RDW Plt Count Seg Neuts % (Manual) Lymphocytes % (Manual) Nucleated RBC % Seg Neutrophils # Man Lymphocytes # (Manual) Haptoglobin PT INR Fibrinogen Lupus Anticoagulant LA PTT Baseline POC ABG pH POC ABG pCO2 POC ABG pO2 Sodium Potassium Chloride Carbon Dioxide BUN Creatinine Glucose POC Glucose 107 H 260 H Lactic Acid 18.00 H* Uric Acid Calcium Phosphorus Iron TIBC Erythropoietin Ferritin Total Bilirubin Direct Bilirubin AST ALT Alkaline Phosphatase Lactate Dehydrogenase C-Reactive Protein Serum Total Protein Total Protein Albumin Vlwaa-0-Lytzcwboc Abnorm Protein Band 1 PEP Interpretation Crossmatch 10/16/16 10/16/16 10/16/16 04:03 07:58 08:34 WBC RBC Hgb Hct MCV MCHC RDW Plt Count Seg Neuts % (Manual) Lymphocytes % (Manual) Nucleated RBC % Seg Neutrophils # Man Lymphocytes # (Manual) Haptoglobin PT INR Fibrinogen Lupus Anticoagulant LA PTT Baseline POC ABG pH 7.527 H POC ABG pCO2 32.9 L POC ABG pO2 119 H Sodium Potassium Chloride Carbon Dioxide BUN Creatinine Glucose POC Glucose 120 H 66 L Lactic Acid Uric Acid Calcium Phosphorus Iron TIBC Erythropoietin Ferritin Total Bilirubin Direct Bilirubin AST ALT Alkaline Phosphatase Lactate Dehydrogenase C-Reactive Protein Serum Total Protein Total Protein Albumin Kdqwp-7-Pnvpjjrfj Abnorm Protein Band 1 PEP Interpretation Crossmatch 10/16/16 10/16/16 10/16/16 09:13 10:06 10:57 WBC RBC Hgb Hct MCV MCHC RDW Plt Count Seg Neuts % (Manual) Lymphocytes % (Manual) Nucleated RBC % Seg Neutrophils # Man Lymphocytes # (Manual) Haptoglobin PT INR Fibrinogen Lupus Anticoagulant LA PTT Baseline POC ABG pH POC ABG pCO2 POC ABG pO2 Sodium Potassium Chloride Carbon Dioxide BUN Creatinine Glucose POC Glucose 147 H 137 H 140 H Lactic Acid Uric Acid Calcium Phosphorus Iron TIBC Erythropoietin Ferritin Total Bilirubin Direct Bilirubin AST ALT Alkaline Phosphatase Lactate Dehydrogenase C-Reactive Protein Serum Total Protein Total Protein Albumin Agnto-9-Etksajrva Abnorm Protein Band 1 PEP Interpretation Crossmatch 10/16/16 10/16/16 10/16/16 11:15 11:15 11:15 WBC 25.8 H RBC 2.30 L Hgb 7.0 L Hct 22.3 L MCV 97 H MCHC 31 L RDW 21.2 H Plt Count 42 L Seg Neuts % (Manual) Lymphocytes % (Manual) 3.0 L Nucleated RBC % 2.0 H Seg Neutrophils # Man 11.1 H Lymphocytes # (Manual) 0.8 L Haptoglobin PT INR Fibrinogen Lupus Anticoagulant LA PTT Baseline POC ABG pH POC ABG pCO2 POC ABG pO2 Sodium Potassium Chloride 81.7 L Carbon Dioxide 13 L D BUN 61 H Creatinine 6.2 H Glucose 171 H POC Glucose Lactic Acid 22.70 H* Uric Acid Calcium 7.1 L Phosphorus 9.10 H Iron TIBC Erythropoietin Ferritin Total Bilirubin Direct Bilirubin AST ALT Alkaline Phosphatase Lactate Dehydrogenase C-Reactive Protein Serum Total Protein Total Protein Albumin Oneqr-3-Lktsmwbdz Abnorm Protein Band 1 PEP Interpretation Crossmatch 10/16/16 10/16/16 10/16/16 15:10 15:50 18:11 WBC RBC Hgb Hct MCV MCHC RDW Plt Count Seg Neuts % (Manual) Lymphocytes % (Manual) Nucleated RBC % Seg Neutrophils # Man Lymphocytes # (Manual) Haptoglobin PT INR Fibrinogen Lupus Anticoagulant LA PTT Baseline POC ABG pH POC ABG pCO2 POC ABG pO2 Sodium Potassium Chloride Carbon Dioxide BUN Creatinine Glucose POC Glucose 47 L 164 H 58 L Lactic Acid Uric Acid Calcium Phosphorus Iron TIBC Erythropoietin Ferritin Total Bilirubin Direct Bilirubin AST ALT Alkaline Phosphatase Lactate Dehydrogenase C-Reactive Protein Serum Total Protein Total Protein Albumin Wbxpr-1-Wvaaqpaue Abnorm Protein Band 1 PEP Interpretation Crossmatch 10/16/16 10/16/16 10/17/16 18:26 21:06 00:06 WBC RBC Hgb Hct MCV MCHC RDW Plt Count Seg Neuts % (Manual) Lymphocytes % (Manual) Nucleated RBC % Seg Neutrophils # Man Lymphocytes # (Manual) Haptoglobin PT INR Fibrinogen Lupus Anticoagulant LA PTT Baseline POC ABG pH POC ABG pCO2 POC ABG pO2 489 H Sodium Potassium Chloride Carbon Dioxide BUN Creatinine Glucose POC Glucose 52 L 120 H Lactic Acid Uric Acid Calcium Phosphorus Iron TIBC Erythropoietin Ferritin Total Bilirubin Direct Bilirubin AST ALT Alkaline Phosphatase Lactate Dehydrogenase C-Reactive Protein Serum Total Protein Total Protein Albumin Pqbps-7-Tbxuwmejc Abnorm Protein Band 1 PEP Interpretation Crossmatch 10/17/16 10/17/16 10/17/16 04:55 04:55 05:04 WBC 25.5 H RBC 2.23 L Hgb 6.6 L Hct 21.2 L MCV 95 H MCHC 31 L RDW 20.5 H Plt Count 35 L Seg Neuts % (Manual) 79.0 H Lymphocytes % (Manual) 0 L Nucleated RBC % Seg Neutrophils # Man 20.1 H Lymphocytes # (Manual) 0.0 L Haptoglobin PT INR Fibrinogen Lupus Anticoagulant LA PTT Baseline POC ABG pH POC ABG pCO2 27.2 L POC ABG pO2 162 H Sodium Potassium Chloride 91.5 L Carbon Dioxide 16 L BUN 45 H Creatinine 4.5 H Glucose 103 H POC Glucose Lactic Acid Uric Acid Calcium 6.9 L Phosphorus 5.80 H D Iron TIBC Erythropoietin Ferritin Total Bilirubin Direct Bilirubin AST ALT Alkaline Phosphatase Lactate Dehydrogenase C-Reactive Protein Serum Total Protein Total Protein Albumin Xovjp-3-Ordjkeppa Abnorm Protein Band 1 PEP Interpretation Crossmatch 10/17/16 10/17/16 10/17/16 07:59 09:04 10:04 WBC RBC Hgb Hct MCV MCHC RDW Plt Count Seg Neuts % (Manual) Lymphocytes % (Manual) Nucleated RBC % Seg Neutrophils # Man Lymphocytes # (Manual) Haptoglobin PT INR Fibrinogen Lupus Anticoagulant LA PTT Baseline POC ABG pH POC ABG pCO2 POC ABG pO2 Sodium Potassium Chloride Carbon Dioxide BUN Creatinine Glucose POC Glucose 65 L 118 H Lactic Acid Uric Acid Calcium Phosphorus Iron TIBC Erythropoietin Ferritin Total Bilirubin Direct Bilirubin AST ALT Alkaline Phosphatase Lactate Dehydrogenase C-Reactive Protein Serum Total Protein Total Protein Albumin Uaeks-4-Tuukerfms Abnorm Protein Band 1 PEP Interpretation Crossmatch See Detail 10/17/16 10/17/16 10/17/16 11:52 13:08 15:42 WBC RBC Hgb Hct MCV MCHC RDW Plt Count Seg Neuts % (Manual) Lymphocytes % (Manual) Nucleated RBC % Seg Neutrophils # Man Lymphocytes # (Manual) Haptoglobin PT INR Fibrinogen Lupus Anticoagulant LA PTT Baseline POC ABG pH POC ABG pCO2 POC ABG pO2 Sodium Potassium Chloride Carbon Dioxide BUN Creatinine Glucose POC Glucose 125 H 106 H 55 L Lactic Acid Uric Acid Calcium Phosphorus Iron TIBC Erythropoietin Ferritin Total Bilirubin Direct Bilirubin AST ALT Alkaline Phosphatase Lactate Dehydrogenase C-Reactive Protein Serum Total Protein Total Protein Albumin Jrbnh-6-Odqdhatod Abnorm Protein Band 1 PEP Interpretation Crossmatch 10/17/16 10/17/16 10/17/16 17:39 20:37 21:02 WBC RBC Hgb Hct MCV MCHC RDW Plt Count Seg Neuts % (Manual) Lymphocytes % (Manual) Nucleated RBC % Seg Neutrophils # Man Lymphocytes # (Manual) Haptoglobin PT INR Fibrinogen Lupus Anticoagulant LA PTT Baseline POC ABG pH POC ABG pCO2 28.2 L POC ABG pO2 Sodium Potassium Chloride Carbon Dioxide BUN Creatinine Glucose POC Glucose < 40 L 106 H Lactic Acid Uric Acid Calcium Phosphorus Iron TIBC Erythropoietin Ferritin Total Bilirubin Direct Bilirubin AST ALT Alkaline Phosphatase Lactate Dehydrogenase C-Reactive Protein Serum Total Protein Total Protein Albumin Avowg-4-Gqkixpkce Abnorm Protein Band 1 PEP Interpretation Crossmatch 10/17/16 10/17/16 10/18/16 22:18 23:14 00:28 WBC RBC Hgb Hct MCV MCHC RDW Plt Count Seg Neuts % (Manual) Lymphocytes % (Manual) Nucleated RBC % Seg Neutrophils # Man Lymphocytes # (Manual) Haptoglobin PT INR Fibrinogen Lupus Anticoagulant LA PTT Baseline POC ABG pH POC ABG pCO2 POC ABG pO2 Sodium Potassium Chloride Carbon Dioxide BUN Creatinine Glucose POC Glucose 111 H 118 H 112 H Lactic Acid Uric Acid Calcium Phosphorus Iron TIBC Erythropoietin Ferritin Total Bilirubin Direct Bilirubin AST ALT Alkaline Phosphatase Lactate Dehydrogenase C-Reactive Protein Serum Total Protein Total Protein Albumin Pzbux-7-Yaxwklvgm Abnorm Protein Band 1 PEP Interpretation Crossmatch 10/18/16 10/18/16 10/18/16 05:00 05:00 05:15 WBC 27.3 H RBC 2.75 L Hgb 7.9 L Hct 25.3 L MCV MCHC 31 L RDW 20.7 H Plt Count 31 L Seg Neuts % (Manual) 87.0 H Lymphocytes % (Manual) 1.0 L Nucleated RBC % 1.0 H Seg Neutrophils # Man 23.8 H Lymphocytes # (Manual) 0.3 L Haptoglobin PT INR Fibrinogen Lupus Anticoagulant LA PTT Baseline POC ABG pH 7.466 H POC ABG pCO2 25.1 L POC ABG pO2 Sodium Potassium Chloride 88.7 L Carbon Dioxide 18 L BUN 66 H Creatinine 4.7 H Glucose POC Glucose Lactic Acid Uric Acid Calcium 6.1 L Phosphorus 7.30 H D Iron TIBC Erythropoietin Ferritin Total Bilirubin Direct Bilirubin AST ALT Alkaline Phosphatase Lactate Dehydrogenase C-Reactive Protein Serum Total Protein Total Protein Albumin Izeda-3-Aiulkjnck Abnorm Protein Band 1 PEP Interpretation Crossmatch 10/18/16 10/18/16 10/18/16 07:15 07:44 09:07 WBC RBC Hgb Hct MCV MCHC RDW Plt Count Seg Neuts % (Manual) Lymphocytes % (Manual) Nucleated RBC % Seg Neutrophils # Man Lymphocytes # (Manual) Haptoglobin PT INR Fibrinogen Lupus Anticoagulant LA PTT Baseline POC ABG pH POC ABG pCO2 POC ABG pO2 Sodium Potassium Chloride Carbon Dioxide BUN Creatinine Glucose POC Glucose 64 L 156 H 117 H Lactic Acid Uric Acid Calcium Phosphorus Iron TIBC Erythropoietin Ferritin Total Bilirubin Direct Bilirubin AST ALT Alkaline Phosphatase Lactate Dehydrogenase C-Reactive Protein Serum Total Protein Total Protein Albumin Ignnp-5-Xyoezhsxx Abnorm Protein Band 1 PEP Interpretation Crossmatch 10/18/16 10/18/16 10/18/16 09:15 14:00 18:21 WBC RBC Hgb Hct MCV MCHC RDW Plt Count Seg Neuts % (Manual) Lymphocytes % (Manual) Nucleated RBC % Seg Neutrophils # Man Lymphocytes # (Manual) Haptoglobin PT INR Fibrinogen Lupus Anticoagulant LA PTT Baseline POC ABG pH POC ABG pCO2 POC ABG pO2 Sodium Potassium Chloride Carbon Dioxide BUN Creatinine Glucose POC Glucose 106 H 112 H Lactic Acid 14.30 H* Uric Acid Calcium Phosphorus Iron TIBC Erythropoietin Ferritin Total Bilirubin Direct Bilirubin AST ALT Alkaline Phosphatase Lactate Dehydrogenase C-Reactive Protein Serum Total Protein Total Protein Albumin Htyan-5-Dpoxyppey Abnorm Protein Band 1 PEP Interpretation Crossmatch 10/18/16 10/18/16 10/18/16 19:58 20:55 22:11 WBC RBC Hgb Hct MCV MCHC RDW Plt Count Seg Neuts % (Manual) Lymphocytes % (Manual) Nucleated RBC % Seg Neutrophils # Man Lymphocytes # (Manual) Haptoglobin PT INR Fibrinogen Lupus Anticoagulant LA PTT Baseline POC ABG pH POC ABG pCO2 POC ABG pO2 Sodium Potassium Chloride Carbon Dioxide BUN Creatinine Glucose POC Glucose 127 H 125 H 159 H Lactic Acid Uric Acid Calcium Phosphorus Iron TIBC Erythropoietin Ferritin Total Bilirubin Direct Bilirubin AST ALT Alkaline Phosphatase Lactate Dehydrogenase C-Reactive Protein Serum Total Protein Total Protein Albumin Xpgaj-6-Fkrmircjj Abnorm Protein Band 1 PEP Interpretation Crossmatch 10/18/16 10/18/16 10/19/16 23:11 23:57 01:06 WBC RBC Hgb Hct MCV MCHC RDW Plt Count Seg Neuts % (Manual) Lymphocytes % (Manual) Nucleated RBC % Seg Neutrophils # Man Lymphocytes # (Manual) Haptoglobin PT INR Fibrinogen Lupus Anticoagulant LA PTT Baseline POC ABG pH POC ABG pCO2 POC ABG pO2 Sodium Potassium Chloride Carbon Dioxide BUN Creatinine Glucose POC Glucose 122 H 137 H 162 H Lactic Acid Uric Acid Calcium Phosphorus Iron TIBC Erythropoietin Ferritin Total Bilirubin Direct Bilirubin AST ALT Alkaline Phosphatase Lactate Dehydrogenase C-Reactive Protein Serum Total Protein Total Protein Albumin Jijvm-9-Ugpyblzfv Abnorm Protein Band 1 PEP Interpretation Crossmatch 10/19/16 10/19/16 10/19/16 01:59 03:07 04:10 WBC RBC Hgb Hct MCV MCHC RDW Plt Count Seg Neuts % (Manual) Lymphocytes % (Manual) Nucleated RBC % Seg Neutrophils # Man Lymphocytes # (Manual) Haptoglobin PT INR Fibrinogen Lupus Anticoagulant LA PTT Baseline POC ABG pH POC ABG pCO2 POC ABG pO2 Sodium Potassium Chloride Carbon Dioxide BUN Creatinine Glucose POC Glucose 154 H 178 H 186 H Lactic Acid Uric Acid Calcium Phosphorus Iron TIBC Erythropoietin Ferritin Total Bilirubin Direct Bilirubin AST ALT Alkaline Phosphatase Lactate Dehydrogenase C-Reactive Protein Serum Total Protein Total Protein Albumin Ozbft-8-Xdizmoxnf Abnorm Protein Band 1 PEP Interpretation Crossmatch 10/19/16 10/19/16 10/19/16 05:14 05:15 05:47 WBC RBC Hgb Hct MCV MCHC RDW Plt Count Seg Neuts % (Manual) Lymphocytes % (Manual) Nucleated RBC % Seg Neutrophils # Man Lymphocytes # (Manual) Haptoglobin PT INR Fibrinogen Lupus Anticoagulant LA PTT Baseline POC ABG pH 7.581 H POC ABG pCO2 22.9 L POC ABG pO2 58 L Sodium Potassium Chloride Carbon Dioxide BUN Creatinine Glucose POC Glucose 197 H 204 H Lactic Acid Uric Acid Calcium Phosphorus Iron TIBC Erythropoietin Ferritin Total Bilirubin Direct Bilirubin AST ALT Alkaline Phosphatase Lactate Dehydrogenase C-Reactive Protein Serum Total Protein Total Protein Albumin Lxygl-7-Ngtovccts Abnorm Protein Band 1 PEP Interpretation Crossmatch 10/19/16 10/19/16 10/19/16 06:00 06:00 07:51 WBC 23.0 H RBC 2.54 L Hgb 7.5 L Hct 23.0 L MCV MCHC RDW 20.7 H Plt Count 25 L Seg Neuts % (Manual) 91.0 H Lymphocytes % (Manual) 2.0 L Nucleated RBC % 1.0 H Seg Neutrophils # Man 20.9 H Lymphocytes # (Manual) 0.5 L Haptoglobin PT INR Fibrinogen Lupus Anticoagulant LA PTT Baseline POC ABG pH POC ABG pCO2 POC ABG pO2 Sodium Potassium Chloride 88.7 L Carbon Dioxide 21 L BUN 70 H Creatinine 3.9 H Glucose 189 H POC Glucose 145 H Lactic Acid Uric Acid Calcium 5.6 L* Phosphorus 6.30 H Iron TIBC Erythropoietin Ferritin Total Bilirubin Direct Bilirubin AST ALT Alkaline Phosphatase Lactate Dehydrogenase C-Reactive Protein Serum Total Protein Total Protein Albumin Zcbft-4-Ueycbpfkl Abnorm Protein Band 1 PEP Interpretation Crossmatch 10/19/16 10/19/16 10/19/16 09:14 10:01 12:14 WBC RBC Hgb Hct MCV MCHC RDW Plt Count Seg Neuts % (Manual) Lymphocytes % (Manual) Nucleated RBC % Seg Neutrophils # Man Lymphocytes # (Manual) Haptoglobin PT INR Fibrinogen Lupus Anticoagulant LA PTT Baseline POC ABG pH POC ABG pCO2 POC ABG pO2 Sodium Potassium Chloride Carbon Dioxide BUN Creatinine Glucose POC Glucose 173 H 153 H 180 H Lactic Acid Uric Acid Calcium Phosphorus Iron TIBC Erythropoietin Ferritin Total Bilirubin Direct Bilirubin AST ALT Alkaline Phosphatase Lactate Dehydrogenase C-Reactive Protein Serum Total Protein Total Protein Albumin Ugcdz-1-Sbqvmqvib Abnorm Protein Band 1 PEP Interpretation Crossmatch 10/19/16 10/19/16 10/19/16 14:15 16:38 20:27 WBC RBC Hgb Hct MCV MCHC RDW Plt Count Seg Neuts % (Manual) Lymphocytes % (Manual) Nucleated RBC % Seg Neutrophils # Man Lymphocytes # (Manual) Haptoglobin PT INR Fibrinogen Lupus Anticoagulant LA PTT Baseline POC ABG pH POC ABG pCO2 POC ABG pO2 Sodium Potassium Chloride Carbon Dioxide BUN Creatinine Glucose POC Glucose 194 H 202 H Lactic Acid Uric Acid Calcium Phosphorus Iron TIBC Erythropoietin 148.2 H Ferritin Total Bilirubin Direct Bilirubin AST ALT Alkaline Phosphatase Lactate Dehydrogenase C-Reactive Protein Serum Total Protein Total Protein Albumin Yirso-7-Rsbpmntjx Abnorm Protein Band 1 PEP Interpretation Crossmatch 10/19/16 10/20/16 10/20/16 23:27 04:06 05:00 WBC RBC Hgb Hct MCV MCHC RDW Plt Count Seg Neuts % (Manual) Lymphocytes % (Manual) Nucleated RBC % Seg Neutrophils # Man Lymphocytes # (Manual) Haptoglobin PT INR Fibrinogen Lupus Anticoagulant LA PTT Baseline POC ABG pH POC ABG pCO2 POC ABG pO2 Sodium Potassium Chloride 88.8 L Carbon Dioxide BUN 93 H Creatinine 4.3 H Glucose 204 H POC Glucose 201 H 200 H Lactic Acid Uric Acid Calcium 5.2 L* Phosphorus Iron TIBC Erythropoietin Ferritin Total Bilirubin Direct Bilirubin AST ALT Alkaline Phosphatase Lactate Dehydrogenase C-Reactive Protein Serum Total Protein Total Protein Albumin Xmwoh-4-Tippghrmn Abnorm Protein Band 1 PEP Interpretation Crossmatch 10/20/16 10/20/16 10/20/16 05:16 06:00 07:43 WBC 24.8 H RBC 2.52 L Hgb 7.4 L Hct 22.9 L MCV MCHC RDW 19.9 H Plt Count 23 L Seg Neuts % (Manual) 97.0 H Lymphocytes % (Manual) 1.0 L Nucleated RBC % 9.0 H Seg Neutrophils # Man 24.1 H Lymphocytes # (Manual) 0.2 L Haptoglobin PT INR Fibrinogen Lupus Anticoagulant LA PTT Baseline POC ABG pH 7.463 H POC ABG pCO2 POC ABG pO2 157 H Sodium Potassium Chloride Carbon Dioxide BUN Creatinine Glucose POC Glucose 192 H Lactic Acid Uric Acid Calcium Phosphorus Iron TIBC Erythropoietin Ferritin Total Bilirubin Direct Bilirubin AST ALT Alkaline Phosphatase Lactate Dehydrogenase C-Reactive Protein Serum Total Protein Total Protein Albumin Rxahq-1-Mngwhsenw Abnorm Protein Band 1 PEP Interpretation Crossmatch 10/20/16 10/20/16 10/20/16 12:11 15:32 21:23 WBC RBC Hgb Hct MCV MCHC RDW Plt Count Seg Neuts % (Manual) Lymphocytes % (Manual) Nucleated RBC % Seg Neutrophils # Man Lymphocytes # (Manual) Haptoglobin PT INR Fibrinogen Lupus Anticoagulant LA PTT Baseline POC ABG pH POC ABG pCO2 POC ABG pO2 Sodium Potassium Chloride Carbon Dioxide BUN Creatinine Glucose POC Glucose 172 H 216 H 271 H Lactic Acid Uric Acid Calcium Phosphorus Iron TIBC Erythropoietin Ferritin Total Bilirubin Direct Bilirubin AST ALT Alkaline Phosphatase Lactate Dehydrogenase C-Reactive Protein Serum Total Protein Total Protein Albumin Utivx-3-Dukmwqasc Abnorm Protein Band 1 PEP Interpretation Crossmatch 10/20/16 10/21/16 10/21/16 23:49 03:53 04:58 WBC RBC Hgb Hct MCV MCHC RDW Plt Count Seg Neuts % (Manual) Lymphocytes % (Manual) Nucleated RBC % Seg Neutrophils # Man Lymphocytes # (Manual) Haptoglobin PT INR Fibrinogen Lupus Anticoagulant LA PTT Baseline POC ABG pH 7.459 H POC ABG pCO2 POC ABG pO2 113 H Sodium 136 L Potassium 2.8 L* D Chloride 91.6 L Carbon Dioxide BUN 62 H Creatinine 2.8 H Glucose 236 H POC Glucose 317 H Lactic Acid Uric Acid Calcium 6.2 L D Phosphorus Iron TIBC Erythropoietin Ferritin Total Bilirubin 2.70 H Direct Bilirubin AST 73 H ALT 57 H Alkaline Phosphatase 158 H Lactate Dehydrogenase C-Reactive Protein Serum Total Protein Total Protein 4.9 L Albumin 2.6 L Psblx-9-Skxiodrhp Abnorm Protein Band 1 PEP Interpretation Crossmatch 10/21/16 10/21/16 10/21/16 05:25 07:11 10:30 WBC 28.1 H RBC 2.36 L Hgb 7.0 L Hct 21.6 L MCV MCHC RDW 20.0 H Plt Count 14 L* Seg Neuts % (Manual) 92.0 H Lymphocytes % (Manual) 0 L Nucleated RBC % 5.0 H Seg Neutrophils # Man 25.9 H Lymphocytes # (Manual) 0.0 L Haptoglobin PT INR Fibrinogen Lupus Anticoagulant LA PTT Baseline POC ABG pH POC ABG pCO2 POC ABG pO2 Sodium Potassium Chloride Carbon Dioxide BUN Creatinine Glucose POC Glucose 237 H 206 H Lactic Acid Uric Acid Calcium Phosphorus Iron TIBC Erythropoietin Ferritin Total Bilirubin Direct Bilirubin AST ALT Alkaline Phosphatase Lactate Dehydrogenase C-Reactive Protein Serum Total Protein Total Protein Albumin Pkgyc-9-Xpnugfbhj Abnorm Protein Band 1 PEP Interpretation Crossmatch 10/21/16 10/21/16 10/21/16 11:25 12:31 16:33 WBC RBC Hgb Hct MCV MCHC RDW Plt Count Seg Neuts % (Manual) Lymphocytes % (Manual) Nucleated RBC % Seg Neutrophils # Man Lymphocytes # (Manual) Haptoglobin PT 49.1 H INR 5.28 H* Fibrinogen Lupus Anticoagulant LA PTT Baseline POC ABG pH POC ABG pCO2 POC ABG pO2 Sodium Potassium Chloride Carbon Dioxide BUN Creatinine Glucose POC Glucose 145 H 151 H Lactic Acid Uric Acid Calcium Phosphorus Iron TIBC Erythropoietin Ferritin Total Bilirubin Direct Bilirubin AST ALT Alkaline Phosphatase Lactate Dehydrogenase C-Reactive Protein Serum Total Protein Total Protein Albumin Ujhmr-5-Iuquvdsxv Abnorm Protein Band 1 PEP Interpretation Crossmatch 10/21/16 10/22/16 10/22/16 19:53 00:00 05:23 WBC RBC Hgb Hct MCV MCHC RDW Plt Count Seg Neuts % (Manual) Lymphocytes % (Manual) Nucleated RBC % Seg Neutrophils # Man Lymphocytes # (Manual) Haptoglobin PT INR Fibrinogen Lupus Anticoagulant LA PTT Baseline POC ABG pH POC ABG pCO2 POC ABG pO2 Sodium Potassium Chloride Carbon Dioxide BUN Creatinine Glucose POC Glucose 170 H 168 H 131 H Lactic Acid Uric Acid Calcium Phosphorus Iron TIBC Erythropoietin Ferritin Total Bilirubin Direct Bilirubin AST ALT Alkaline Phosphatase Lactate Dehydrogenase C-Reactive Protein Serum Total Protein Total Protein Albumin Zwkti-7-Dctkliiwf Abnorm Protein Band 1 PEP Interpretation Crossmatch 10/22/16 10/22/16 10/22/16 05:25 05:35 13:03 WBC RBC Hgb Hct MCV MCHC RDW Plt Count Seg Neuts % (Manual) Lymphocytes % (Manual) Nucleated RBC % Seg Neutrophils # Man Lymphocytes # (Manual) Haptoglobin PT INR Fibrinogen Lupus Anticoagulant LA PTT Baseline POC ABG pH 7.462 H POC ABG pCO2 POC ABG pO2 Sodium 135 L Potassium 3.0 L Chloride 88.5 L Carbon Dioxide BUN 84 H Creatinine 3.4 H Glucose 124 H POC Glucose 164 H Lactic Acid Uric Acid Calcium 5.9 L* Phosphorus Iron TIBC Erythropoietin Ferritin Total Bilirubin 2.00 H Direct Bilirubin AST 85 H ALT Alkaline Phosphatase 199 H Lactate Dehydrogenase C-Reactive Protein Serum Total Protein Total Protein 5.0 L Albumin 2.5 L Pedwk-8-Tqyymybbc Abnorm Protein Band 1 PEP Interpretation Crossmatch 10/22/16 10/22/16 10/23/16 17:14 23:16 04:47 WBC RBC Hgb Hct MCV MCHC RDW Plt Count Seg Neuts % (Manual) Lymphocytes % (Manual) Nucleated RBC % Seg Neutrophils # Man Lymphocytes # (Manual) Haptoglobin PT INR Fibrinogen Lupus Anticoagulant LA PTT Baseline POC ABG pH 7.476 H POC ABG pCO2 POC ABG pO2 108 H Sodium Potassium Chloride Carbon Dioxide BUN Creatinine Glucose POC Glucose 188 H 167 H Lactic Acid Uric Acid Calcium Phosphorus Iron TIBC Erythropoietin Ferritin Total Bilirubin Direct Bilirubin AST ALT Alkaline Phosphatase Lactate Dehydrogenase C-Reactive Protein Serum Total Protein Total Protein Albumin Lwrdq-8-Papbqphdl Abnorm Protein Band 1 PEP Interpretation Crossmatch 10/23/16 10/23/16 10/23/16 05:49 07:00 07:12 WBC 24.2 H RBC 2.27 L Hgb 7.0 L Hct 21.1 L MCV MCHC RDW 19.7 H Plt Count 35 L D Seg Neuts % (Manual) Lymphocytes % (Manual) Nucleated RBC % Seg Neutrophils # Man Lymphocytes # (Manual) Haptoglobin PT INR Fibrinogen Lupus Anticoagulant LA PTT Baseline POC ABG pH POC ABG pCO2 POC ABG pO2 Sodium Potassium 3.5 L Chloride 95.7 L Carbon Dioxide BUN 55 H Creatinine 2.7 H Glucose 103 H POC Glucose 106 H Lactic Acid Uric Acid Calcium 7.1 L D Phosphorus Iron TIBC Erythropoietin Ferritin Total Bilirubin Direct Bilirubin AST ALT Alkaline Phosphatase Lactate Dehydrogenase C-Reactive Protein Serum Total Protein Total Protein Albumin Vxldb-7-Axmqfcmhf Abnorm Protein Band 1 PEP Interpretation Crossmatch 10/24/16 10/24/16 10/24/16 00:12 05:16 07:00 WBC 17.9 H RBC 2.12 L Hgb 6.5 L Hct 19.9 L* MCV MCHC RDW 19.3 H Plt Count 44 L Seg Neuts % (Manual) Lymphocytes % (Manual) Nucleated RBC % Seg Neutrophils # Man Lymphocytes # (Manual) Haptoglobin PT INR Fibrinogen Lupus Anticoagulant LA PTT Baseline POC ABG pH POC ABG pCO2 POC ABG pO2 Sodium Potassium Chloride Carbon Dioxide BUN Creatinine Glucose POC Glucose 116 H 135 H Lactic Acid Uric Acid Calcium Phosphorus Iron TIBC Erythropoietin Ferritin Total Bilirubin Direct Bilirubin AST ALT Alkaline Phosphatase Lactate Dehydrogenase C-Reactive Protein Serum Total Protein Total Protein Albumin Ypnjp-2-Dwlrkgrfh Abnorm Protein Band 1 PEP Interpretation Crossmatch 10/24/16 10/24/16 10/24/16 07:00 11:45 12:12 WBC RBC Hgb Hct MCV MCHC RDW Plt Count Seg Neuts % (Manual) Lymphocytes % (Manual) Nucleated RBC % Seg Neutrophils # Man Lymphocytes # (Manual) Haptoglobin PT INR Fibrinogen Lupus Anticoagulant LA PTT Baseline POC ABG pH POC ABG pCO2 POC ABG pO2 Sodium Potassium Chloride 92.9 L Carbon Dioxide BUN 74 H Creatinine 3.3 H Glucose 136 H POC Glucose 177 H Lactic Acid Uric Acid Calcium 6.6 L Phosphorus Iron TIBC Erythropoietin Ferritin Total Bilirubin 2.10 H Direct Bilirubin AST 68 H ALT Alkaline Phosphatase 224 H Lactate Dehydrogenase C-Reactive Protein Serum Total Protein Total Protein 4.8 L Albumin 2.3 L Xalzz-8-Kyyhmshqo Abnorm Protein Band 1 PEP Interpretation Crossmatch See Detail 10/24/16 10/24/16 10/24/16 16:30 16:30 17:28 WBC RBC Hgb Hct MCV MCHC RDW Plt Count Seg Neuts % (Manual) Lymphocytes % (Manual) Nucleated RBC % Seg Neutrophils # Man Lymphocytes # (Manual) Haptoglobin PT INR Fibrinogen Lupus Anticoagulant LA PTT Baseline POC ABG pH POC ABG pCO2 POC ABG pO2 Sodium Potassium Chloride Carbon Dioxide BUN Creatinine Glucose POC Glucose 128 H Lactic Acid 3.00 H* Uric Acid Calcium Phosphorus Iron TIBC Erythropoietin Ferritin Total Bilirubin Direct Bilirubin AST ALT Alkaline Phosphatase Lactate Dehydrogenase C-Reactive Protein 7.40 H Serum Total Protein Total Protein Albumin Grfte-6-Vekcbahnj Abnorm Protein Band 1 PEP Interpretation Crossmatch 10/24/16 10/24/16 10/25/16 18:40 23:32 05:00 WBC 17.5 H RBC 2.99 L Hgb 9.1 L Hct 26.9 L D MCV MCHC RDW 17.7 H Plt Count 53 L Seg Neuts % (Manual) Lymphocytes % (Manual) Nucleated RBC % Seg Neutrophils # Man Lymphocytes # (Manual) Haptoglobin PT INR Fibrinogen Lupus Anticoagulant LA PTT Baseline POC ABG pH POC ABG pCO2 POC ABG pO2 Sodium Potassium Chloride Carbon Dioxide BUN Creatinine Glucose POC Glucose 140 H Lactic Acid 3.10 H* Uric Acid Calcium Phosphorus Iron TIBC Erythropoietin Ferritin Total Bilirubin Direct Bilirubin AST ALT Alkaline Phosphatase Lactate Dehydrogenase C-Reactive Protein Serum Total Protein Total Protein Albumin Uvgid-8-Ettjierdu Abnorm Protein Band 1 PEP Interpretation Crossmatch 10/25/16 10/25/16 10/25/16 05:00 05:22 11:58 WBC RBC Hgb Hct MCV MCHC RDW Plt Count Seg Neuts % (Manual) Lymphocytes % (Manual) Nucleated RBC % Seg Neutrophils # Man Lymphocytes # (Manual) Haptoglobin PT INR Fibrinogen Lupus Anticoagulant LA PTT Baseline POC ABG pH POC ABG pCO2 POC ABG pO2 Sodium Potassium Chloride 91.6 L Carbon Dioxide BUN 89 H Creatinine 3.9 H Glucose 150 H POC Glucose 164 H 189 H Lactic Acid Uric Acid Calcium 6.9 L Phosphorus Iron TIBC Erythropoietin Ferritin Total Bilirubin Direct Bilirubin AST ALT Alkaline Phosphatase Lactate Dehydrogenase C-Reactive Protein Serum Total Protein Total Protein Albumin Ubato-6-Hnuaaxzdk Abnorm Protein Band 1 PEP Interpretation Crossmatch 10/25/16 10/25/16 10/26/16 17:56 23:12 04:00 WBC RBC Hgb Hct MCV MCHC RDW Plt Count Seg Neuts % (Manual) Lymphocytes % (Manual) Nucleated RBC % Seg Neutrophils # Man Lymphocytes # (Manual) Haptoglobin PT INR Fibrinogen Lupus Anticoagulant LA PTT Baseline POC ABG pH POC ABG pCO2 POC ABG pO2 Sodium 135 L Potassium Chloride 90.7 L Carbon Dioxide BUN 64 H Creatinine 2.9 H Glucose 132 H POC Glucose 156 H 133 H Lactic Acid Uric Acid Calcium 7.3 L Phosphorus Iron TIBC Erythropoietin Ferritin Total Bilirubin Direct Bilirubin AST ALT Alkaline Phosphatase Lactate Dehydrogenase C-Reactive Protein Serum Total Protein Total Protein Albumin Mlsoj-2-Jqemnamfp Abnorm Protein Band 1 PEP Interpretation Crossmatch 10/26/16 10/26/16 10/26/16 05:14 06:15 11:51 WBC 18.6 H RBC 3.15 L Hgb 9.6 L Hct 29.0 L MCV MCHC RDW 17.8 H Plt Count 71 L Seg Neuts % (Manual) 85.0 H Lymphocytes % (Manual) 1.0 L Nucleated RBC % Seg Neutrophils # Man 15.8 H Lymphocytes # (Manual) 0.2 L Haptoglobin PT INR Fibrinogen Lupus Anticoagulant LA PTT Baseline POC ABG pH POC ABG pCO2 POC ABG pO2 Sodium Potassium Chloride Carbon Dioxide BUN Creatinine Glucose POC Glucose 130 H 139 H Lactic Acid Uric Acid Calcium Phosphorus Iron TIBC Erythropoietin Ferritin Total Bilirubin Direct Bilirubin AST ALT Alkaline Phosphatase Lactate Dehydrogenase C-Reactive Protein Serum Total Protein Total Protein Albumin Hqwnj-4-Pmodetdqu Abnorm Protein Band 1 PEP Interpretation Crossmatch 10/26/16 10/26/16 10/27/16 17:25 23:35 04:10 WBC 16.8 H RBC 3.38 L Hgb 10.1 L Hct 31.0 L MCV MCHC RDW 18.0 H Plt Count 77 L Seg Neuts % (Manual) 92.0 H Lymphocytes % (Manual) 1.0 L Nucleated RBC % 1.0 H Seg Neutrophils # Man 15.5 H Lymphocytes # (Manual) 0.2 L Haptoglobin PT INR Fibrinogen Lupus Anticoagulant LA PTT Baseline POC ABG pH POC ABG pCO2 POC ABG pO2 Sodium Potassium Chloride Carbon Dioxide BUN Creatinine Glucose POC Glucose 118 H 145 H Lactic Acid Uric Acid Calcium Phosphorus Iron TIBC Erythropoietin Ferritin Total Bilirubin Direct Bilirubin AST ALT Alkaline Phosphatase Lactate Dehydrogenase C-Reactive Protein Serum Total Protein Total Protein Albumin Tfdpq-7-Koerdjhqp Abnorm Protein Band 1 PEP Interpretation Crossmatch 10/27/16 10/27/16 10/27/16 04:10 05:53 08:14 WBC RBC Hgb Hct MCV MCHC RDW Plt Count Seg Neuts % (Manual) Lymphocytes % (Manual) Nucleated RBC % Seg Neutrophils # Man Lymphocytes # (Manual) Haptoglobin PT 23.0 H INR 2.03 H Fibrinogen Lupus Anticoagulant LA PTT Baseline POC ABG pH POC ABG pCO2 POC ABG pO2 Sodium Potassium Chloride 95.5 L Carbon Dioxide BUN 63 H Creatinine 2.8 H Glucose 112 H POC Glucose 127 H Lactic Acid Uric Acid Calcium 7.5 L Phosphorus Iron TIBC Erythropoietin Ferritin Total Bilirubin Direct Bilirubin AST ALT Alkaline Phosphatase Lactate Dehydrogenase C-Reactive Protein Serum Total Protein Total Protein Albumin Hzjtf-1-Odjbnbqlk Abnorm Protein Band 1 PEP Interpretation Crossmatch 10/27/16 10/27/16 10/27/16 11:56 17:47 23:55 WBC RBC Hgb Hct MCV MCHC RDW Plt Count Seg Neuts % (Manual) Lymphocytes % (Manual) Nucleated RBC % Seg Neutrophils # Man Lymphocytes # (Manual) Haptoglobin PT INR Fibrinogen Lupus Anticoagulant LA PTT Baseline POC ABG pH POC ABG pCO2 POC ABG pO2 Sodium Potassium Chloride Carbon Dioxide BUN Creatinine Glucose POC Glucose 113 H 117 H 142 H Lactic Acid Uric Acid Calcium Phosphorus Iron TIBC Erythropoietin Ferritin Total Bilirubin Direct Bilirubin AST ALT Alkaline Phosphatase Lactate Dehydrogenase C-Reactive Protein Serum Total Protein Total Protein Albumin Kting-4-Rbbpeqkwo Abnorm Protein Band 1 PEP Interpretation Crossmatch 10/28/16 10/28/16 10/28/16 05:45 05:45 11:44 WBC 16.6 H RBC 3.18 L Hgb 9.5 L Hct 29.3 L MCV MCHC RDW 17.6 H Plt Count 83 L Seg Neuts % (Manual) 87.0 H Lymphocytes % (Manual) 3.0 L Nucleated RBC % Seg Neutrophils # Man 14.4 H Lymphocytes # (Manual) 0.5 L Haptoglobin PT INR Fibrinogen Lupus Anticoagulant LA PTT Baseline POC ABG pH POC ABG pCO2 POC ABG pO2 Sodium Potassium Chloride 94.6 L Carbon Dioxide 21 L BUN 90 H Creatinine 3.9 H Glucose 152 H POC Glucose 151 H Lactic Acid Uric Acid Calcium 6.9 L Phosphorus Iron TIBC Erythropoietin Ferritin Total Bilirubin Direct Bilirubin AST ALT Alkaline Phosphatase Lactate Dehydrogenase C-Reactive Protein Serum Total Protein Total Protein Albumin Fuuoq-0-Cgxnxtuzd Abnorm Protein Band 1 PEP Interpretation Crossmatch 10/28/16 10/28/16 10/29/16 17:31 23:47 04:53 WBC RBC Hgb Hct MCV MCHC RDW Plt Count Seg Neuts % (Manual) Lymphocytes % (Manual) Nucleated RBC % Seg Neutrophils # Man Lymphocytes # (Manual) Haptoglobin PT INR Fibrinogen Lupus Anticoagulant LA PTT Baseline POC ABG pH POC ABG pCO2 POC ABG pO2 Sodium Potassium Chloride Carbon Dioxide BUN Creatinine Glucose POC Glucose 184 H 124 H 153 H Lactic Acid Uric Acid Calcium Phosphorus Iron TIBC Erythropoietin Ferritin Total Bilirubin Direct Bilirubin AST ALT Alkaline Phosphatase Lactate Dehydrogenase C-Reactive Protein Serum Total Protein Total Protein Albumin Uhvvp-3-Galvdlasl Abnorm Protein Band 1 PEP Interpretation Crossmatch 10/29/16 10/29/16 10/29/16 06:15 06:15 10:58 WBC 14.1 H RBC 3.15 L Hgb 9.6 L Hct 29.1 L MCV MCHC RDW 17.9 H Plt Count 73 L Seg Neuts % (Manual) 93.0 H Lymphocytes % (Manual) 4.0 L Nucleated RBC % Seg Neutrophils # Man 13.1 H Lymphocytes # (Manual) 0.6 L Haptoglobin PT INR Fibrinogen Lupus Anticoagulant LA PTT Baseline POC ABG pH POC ABG pCO2 POC ABG pO2 Sodium Potassium Chloride Carbon Dioxide BUN 58 H Creatinine 2.7 H Glucose 146 H POC Glucose 134 H Lactic Acid Uric Acid Calcium 7.4 L Phosphorus 5.00 H Iron TIBC Erythropoietin Ferritin Total Bilirubin Direct Bilirubin AST ALT Alkaline Phosphatase Lactate Dehydrogenase C-Reactive Protein Serum Total Protein Total Protein Albumin Pspzj-2-Gpwkimbwc Abnorm Protein Band 1 PEP Interpretation Crossmatch 10/29/16 10/29/16 10/30/16 17:06 23:28 05:16 WBC RBC Hgb Hct MCV MCHC RDW Plt Count Seg Neuts % (Manual) Lymphocytes % (Manual) Nucleated RBC % Seg Neutrophils # Man Lymphocytes # (Manual) Haptoglobin PT INR Fibrinogen Lupus Anticoagulant LA PTT Baseline POC ABG pH POC ABG pCO2 POC ABG pO2 Sodium Potassium Chloride Carbon Dioxide BUN Creatinine Glucose POC Glucose 158 H 133 H 147 H Lactic Acid Uric Acid Calcium Phosphorus Iron TIBC Erythropoietin Ferritin Total Bilirubin Direct Bilirubin AST ALT Alkaline Phosphatase Lactate Dehydrogenase C-Reactive Protein Serum Total Protein Total Protein Albumin Gwozu-5-Wgsbterfd Abnorm Protein Band 1 PEP Interpretation Crossmatch 10/30/16 10/30/16 10/30/16 06:35 06:35 12:08 WBC 13.0 H RBC 3.08 L Hgb 9.3 L Hct 28.7 L MCV MCHC RDW 18.4 H Plt Count 73 L Seg Neuts % (Manual) Lymphocytes % (Manual) Nucleated RBC % Seg Neutrophils # Man Lymphocytes # (Manual) Haptoglobin PT INR Fibrinogen Lupus Anticoagulant LA PTT Baseline POC ABG pH POC ABG pCO2 POC ABG pO2 Sodium Potassium Chloride Carbon Dioxide BUN 86 H Creatinine 3.5 H Glucose 132 H POC Glucose 134 H Lactic Acid Uric Acid Calcium 7.1 L Phosphorus 5.90 H Iron TIBC Erythropoietin Ferritin Total Bilirubin Direct Bilirubin AST ALT Alkaline Phosphatase Lactate Dehydrogenase C-Reactive Protein Serum Total Protein Total Protein Albumin Kvyst-7-Bkomsobia Abnorm Protein Band 1 PEP Interpretation Crossmatch 10/30/16 10/30/16 10/31/16 18:02 23:31 05:21 WBC RBC Hgb Hct MCV MCHC RDW Plt Count Seg Neuts % (Manual) Lymphocytes % (Manual) Nucleated RBC % Seg Neutrophils # Man Lymphocytes # (Manual) Haptoglobin PT INR Fibrinogen Lupus Anticoagulant LA PTT Baseline POC ABG pH POC ABG pCO2 POC ABG pO2 Sodium Potassium Chloride Carbon Dioxide BUN Creatinine Glucose POC Glucose 142 H 152 H 152 H Lactic Acid Uric Acid Calcium Phosphorus Iron TIBC Erythropoietin Ferritin Total Bilirubin Direct Bilirubin AST ALT Alkaline Phosphatase Lactate Dehydrogenase C-Reactive Protein Serum Total Protein Total Protein Albumin Bjyhw-4-Nxwvddfkb Abnorm Protein Band 1 PEP Interpretation Crossmatch 10/31/16 10/31/16 10/31/16 06:21 06:21 12:12 WBC 11.9 H RBC 2.82 L Hgb 8.6 L Hct 26.4 L MCV MCHC RDW 17.8 H Plt Count 56 L Seg Neuts % (Manual) Lymphocytes % (Manual) 0 L Nucleated RBC % Seg Neutrophils # Man 10.9 H Lymphocytes # (Manual) 0.0 L Haptoglobin PT INR Fibrinogen Lupus Anticoagulant LA PTT Baseline POC ABG pH POC ABG pCO2 POC ABG pO2 Sodium Potassium Chloride Carbon Dioxide 21 L BUN 107 H Creatinine 4.2 H Glucose 137 H POC Glucose 142 H Lactic Acid Uric Acid Calcium 7.2 L Phosphorus 6.50 H Iron TIBC Erythropoietin Ferritin Total Bilirubin Direct Bilirubin AST ALT Alkaline Phosphatase Lactate Dehydrogenase C-Reactive Protein Serum Total Protein Total Protein Albumin Cxotq-7-Cyykosfsc Abnorm Protein Band 1 PEP Interpretation Crossmatch 10/31/16 10/31/16 11/01/16 17:34 23:46 05:15 WBC RBC Hgb Hct MCV MCHC RDW Plt Count Seg Neuts % (Manual) Lymphocytes % (Manual) Nucleated RBC % Seg Neutrophils # Man Lymphocytes # (Manual) Haptoglobin PT INR Fibrinogen Lupus Anticoagulant LA PTT Baseline POC ABG pH POC ABG pCO2 POC ABG pO2 Sodium Potassium Chloride Carbon Dioxide BUN Creatinine Glucose POC Glucose 180 H 131 H 148 H Lactic Acid Uric Acid Calcium Phosphorus Iron TIBC Erythropoietin Ferritin Total Bilirubin Direct Bilirubin AST ALT Alkaline Phosphatase Lactate Dehydrogenase C-Reactive Protein Serum Total Protein Total Protein Albumin Upuqu-0-Nerdvxaie Abnorm Protein Band 1 PEP Interpretation Crossmatch 11/01/16 11/01/16 11/01/16 06:00 06:00 11:45 WBC RBC 2.66 L Hgb 8.1 L Hct 24.8 L MCV MCHC RDW 17.7 H Plt Count 47 L Seg Neuts % (Manual) 88.0 H Lymphocytes % (Manual) 0 L Nucleated RBC % Seg Neutrophils # Man Lymphocytes # (Manual) 0.0 L Haptoglobin PT INR Fibrinogen Lupus Anticoagulant LA PTT Baseline POC ABG pH POC ABG pCO2 POC ABG pO2 Sodium 134 L Potassium Chloride 95.6 L Carbon Dioxide BUN 90 H Creatinine 3.5 H Glucose 154 H POC Glucose 169 H Lactic Acid Uric Acid Calcium 7.1 L Phosphorus 5.50 H Iron TIBC Erythropoietin Ferritin Total Bilirubin Direct Bilirubin AST ALT Alkaline Phosphatase Lactate Dehydrogenase C-Reactive Protein Serum Total Protein Total Protein Albumin Tjnbu-4-Plpofnkbp Abnorm Protein Band 1 PEP Interpretation Crossmatch 11/01/16 11/01/16 11/01/16 18:33 20:55 23:51 WBC RBC Hgb Hct MCV MCHC RDW Plt Count Seg Neuts % (Manual) Lymphocytes % (Manual) Nucleated RBC % Seg Neutrophils # Man Lymphocytes # (Manual) Haptoglobin PT INR Fibrinogen Lupus Anticoagulant LA PTT Baseline POC ABG pH POC ABG pCO2 POC ABG pO2 Sodium Potassium Chloride Carbon Dioxide BUN Creatinine Glucose POC Glucose 128 H 144 H Lactic Acid 3.10 H* Uric Acid Calcium Phosphorus Iron TIBC Erythropoietin Ferritin Total Bilirubin Direct Bilirubin AST ALT Alkaline Phosphatase Lactate Dehydrogenase C-Reactive Protein Serum Total Protein Total Protein Albumin Nsdkb-3-Rgmnzcqtb Abnorm Protein Band 1 PEP Interpretation Crossmatch 11/02/16 11/02/16 11/02/16 05:15 05:15 05:24 WBC RBC 2.69 L Hgb 8.2 L Hct 25.1 L MCV MCHC RDW 16.9 H Plt Count 42 L Seg Neuts % (Manual) 94.0 H Lymphocytes % (Manual) 0 L Nucleated RBC % Seg Neutrophils # Man Lymphocytes # (Manual) 0.0 L Haptoglobin PT INR Fibrinogen Lupus Anticoagulant LA PTT Baseline POC ABG pH POC ABG pCO2 POC ABG pO2 Sodium 135 L Potassium Chloride 97.7 L Carbon Dioxide BUN 67 H Creatinine 2.8 H Glucose 107 H POC Glucose 119 H Lactic Acid Uric Acid Calcium 7.3 L Phosphorus 4.90 H Iron TIBC Erythropoietin Ferritin Total Bilirubin Direct Bilirubin AST ALT Alkaline Phosphatase Lactate Dehydrogenase C-Reactive Protein Serum Total Protein Total Protein Albumin Wovin-9-Rakxmhykm Abnorm Protein Band 1 PEP Interpretation Crossmatch 11/02/16 11/02/16 11/02/16 06:07 09:26 10:00 WBC RBC 2.83 L Hgb 8.7 L Hct 26.5 L MCV MCHC RDW 17.4 H Plt Count 46 L Seg Neuts % (Manual) Lymphocytes % (Manual) Nucleated RBC % Seg Neutrophils # Man Lymphocytes # (Manual) Haptoglobin PT 19.9 H INR 1.69 H Fibrinogen Lupus Anticoagulant LA PTT Baseline POC ABG pH POC ABG pCO2 POC ABG pO2 Sodium Potassium Chloride Carbon Dioxide BUN Creatinine Glucose POC Glucose 111 H Lactic Acid Uric Acid Calcium Phosphorus Iron TIBC Erythropoietin Ferritin Total Bilirubin Direct Bilirubin AST ALT Alkaline Phosphatase Lactate Dehydrogenase C-Reactive Protein Serum Total Protein Total Protein Albumin Dbqbq-8-Wvymnciaw Abnorm Protein Band 1 PEP Interpretation Crossmatch 11/03/16 11/03/16 11/03/16 00:02 03:25 03:25 WBC RBC 2.34 L Hgb 7.0 L Hct 21.9 L MCV MCHC RDW 17.6 H Plt Count 49 L Seg Neuts % (Manual) 86.0 H Lymphocytes % (Manual) 4.0 L Nucleated RBC % Seg Neutrophils # Man Lymphocytes # (Manual) 0.3 L Haptoglobin PT INR Fibrinogen Lupus Anticoagulant LA PTT Baseline POC ABG pH POC ABG pCO2 POC ABG pO2 Sodium 136 L Potassium Chloride 94.6 L Carbon Dioxide 21 L BUN 84 H Creatinine 3.2 H Glucose 116 H POC Glucose 114 H Lactic Acid Uric Acid Calcium 7.0 L Phosphorus 5.80 H Iron TIBC Erythropoietin Ferritin Total Bilirubin Direct Bilirubin AST ALT Alkaline Phosphatase Lactate Dehydrogenase C-Reactive Protein Serum Total Protein Total Protein Albumin Rzrkc-8-Hunyvghbe Abnorm Protein Band 1 PEP Interpretation Crossmatch 11/03/16 11/03/16 11/03/16 03:25 11:05 13:02 WBC RBC Hgb Hct MCV MCHC RDW Plt Count Seg Neuts % (Manual) Lymphocytes % (Manual) Nucleated RBC % Seg Neutrophils # Man Lymphocytes # (Manual) Haptoglobin PT 22.5 H INR 1.98 H Fibrinogen Lupus Anticoagulant LA PTT Baseline POC ABG pH POC ABG pCO2 POC ABG pO2 Sodium Potassium Chloride Carbon Dioxide BUN Creatinine Glucose POC Glucose 165 H Lactic Acid Uric Acid Calcium Phosphorus Iron TIBC Erythropoietin Ferritin Total Bilirubin Direct Bilirubin AST ALT Alkaline Phosphatase Lactate Dehydrogenase C-Reactive Protein Serum Total Protein Total Protein Albumin Rjmwh-4-Kuhtdyyvw Abnorm Protein Band 1 PEP Interpretation Crossmatch See Detail 11/03/16 11/04/16 11/04/16 18:13 00:27 05:40 WBC RBC Hgb Hct MCV MCHC RDW Plt Count Seg Neuts % (Manual) Lymphocytes % (Manual) Nucleated RBC % Seg Neutrophils # Man Lymphocytes # (Manual) Haptoglobin PT 20.3 H INR 1.74 H Fibrinogen Lupus Anticoagulant LA PTT Baseline POC ABG pH POC ABG pCO2 POC ABG pO2 Sodium Potassium Chloride Carbon Dioxide BUN Creatinine Glucose POC Glucose 163 H 108 H Lactic Acid Uric Acid Calcium Phosphorus Iron TIBC Erythropoietin Ferritin Total Bilirubin Direct Bilirubin AST ALT Alkaline Phosphatase Lactate Dehydrogenase C-Reactive Protein Serum Total Protein Total Protein Albumin Lmlzn-5-Nlkfjstpk Abnorm Protein Band 1 PEP Interpretation Crossmatch 11/04/16 11/04/16 11/04/16 11:41 14:48 17:58 WBC RBC Hgb Hct MCV MCHC RDW Plt Count Seg Neuts % (Manual) Lymphocytes % (Manual) Nucleated RBC % Seg Neutrophils # Man Lymphocytes # (Manual) Haptoglobin PT INR Fibrinogen Lupus Anticoagulant LA PTT Baseline POC ABG pH POC ABG pCO2 POC ABG pO2 107 H Sodium Potassium Chloride Carbon Dioxide BUN Creatinine Glucose POC Glucose 175 H 106 H Lactic Acid Uric Acid Calcium Phosphorus Iron TIBC Erythropoietin Ferritin Total Bilirubin Direct Bilirubin AST ALT Alkaline Phosphatase Lactate Dehydrogenase C-Reactive Protein Serum Total Protein Total Protein Albumin Ptdml-5-Vbcslwzrq Abnorm Protein Band 1 PEP Interpretation Crossmatch 11/05/16 11/05/16 11/05/16 00:21 04:55 05:40 WBC RBC 2.60 L Hgb 8.1 L Hct 24.6 L MCV 95 H MCHC RDW 16.4 H Plt Count 34 L Seg Neuts % (Manual) Lymphocytes % (Manual) 1.0 L Nucleated RBC % Seg Neutrophils # Man Lymphocytes # (Manual) 0.1 L Haptoglobin PT INR Fibrinogen Lupus Anticoagulant LA PTT Baseline POC ABG pH POC ABG pCO2 POC ABG pO2 Sodium Potassium Chloride Carbon Dioxide BUN Creatinine Glucose POC Glucose 117 H 143 H Lactic Acid Uric Acid Calcium Phosphorus Iron TIBC Erythropoietin Ferritin Total Bilirubin Direct Bilirubin AST ALT Alkaline Phosphatase Lactate Dehydrogenase C-Reactive Protein Serum Total Protein Total Protein Albumin Iaqhq-2-Dlosujhao Abnorm Protein Band 1 PEP Interpretation Crossmatch 11/05/16 11/05/16 11/05/16 06:00 11:20 18:03 WBC RBC Hgb Hct MCV MCHC RDW Plt Count Seg Neuts % (Manual) Lymphocytes % (Manual) Nucleated RBC % Seg Neutrophils # Man Lymphocytes # (Manual) Haptoglobin PT INR Fibrinogen Lupus Anticoagulant LA PTT Baseline POC ABG pH POC ABG pCO2 POC ABG pO2 Sodium Potassium Chloride Carbon Dioxide BUN 46 H Creatinine 2.0 H Glucose 166 H POC Glucose 147 H 178 H Lactic Acid Uric Acid Calcium 7.3 L Phosphorus Iron TIBC Erythropoietin Ferritin Total Bilirubin Direct Bilirubin AST ALT Alkaline Phosphatase Lactate Dehydrogenase C-Reactive Protein Serum Total Protein Total Protein Albumin Rseze-3-Hdxbyknbf Abnorm Protein Band 1 PEP Interpretation Crossmatch 11/05/16 11/05/16 11/06/16 21:31 23:49 05:09 WBC RBC Hgb Hct MCV MCHC RDW Plt Count Seg Neuts % (Manual) Lymphocytes % (Manual) Nucleated RBC % Seg Neutrophils # Man Lymphocytes # (Manual) Haptoglobin PT INR Fibrinogen Lupus Anticoagulant LA PTT Baseline POC ABG pH 7.464 H POC ABG pCO2 34.8 L POC ABG pO2 219 H Sodium Potassium Chloride Carbon Dioxide BUN Creatinine Glucose POC Glucose 130 H 138 H Lactic Acid Uric Acid Calcium Phosphorus Iron TIBC Erythropoietin Ferritin Total Bilirubin Direct Bilirubin AST ALT Alkaline Phosphatase Lactate Dehydrogenase C-Reactive Protein Serum Total Protein Total Protein Albumin Lezxv-0-Hdgkabfjd Abnorm Protein Band 1 PEP Interpretation Crossmatch 11/06/16 11/06/16 08:10 08:10 WBC RBC 2.78 L Hgb 8.7 L Hct 26.4 L MCV 95 H MCHC RDW 17.3 H Plt Count 34 L Seg Neuts % (Manual) Lymphocytes % (Manual) Nucleated RBC % Seg Neutrophils # Man Lymphocytes # (Manual) Haptoglobin PT INR Fibrinogen Lupus Anticoagulant LA PTT Baseline POC ABG pH POC ABG pCO2 POC ABG pO2 Sodium Potassium Chloride 97.8 L Carbon Dioxide BUN 72 H Creatinine 3.0 H Glucose 173 H POC Glucose Lactic Acid Uric Acid Calcium 7.2 L Phosphorus Iron TIBC Erythropoietin Ferritin Total Bilirubin Direct Bilirubin AST 105 H ALT Alkaline Phosphatase 759 H Lactate Dehydrogenase C-Reactive Protein Serum Total Protein Total Protein 5.1 L Albumin 1.9 L Zyctx-6-Ehfovfasq Abnorm Protein Band 1 PEP Interpretation Crossmatch Allied health notes reviewed: RT
[2016-11-06] MEDS: NOVOLOG SUB-Q SCH ×2 (12:00→18:20)
--- NOTE | 2016-11-06 12:50 | Progress Note ---
Assessment and Plan - Patient Problems (1) Thrombocytopenia Current Visit: Yes Status: Acute Plan to address problem: Hematology on board, awaiting [id number] level, follow up Hematology recs (2) Acute renal failure Current Visit: Yes Status: Acute Qualifiers: Acute renal failure type: A Plan to address problem: Renal function reviewed, SCr level was 3.0 today, yesterday's SCr level was 2.0 No acute indication for HD today Assess need for HD on daily basis Monitor for renal recovery Renally dose medications Obtain daily weight Strict intake and output Renal plan discussed with Dr Marin Continue supportive therapy (3) Acute respiratory failure Current Visit: Yes Status: Acute Qualifiers: Respiratory failure complication: hypoxia Qualified Code(s): J96.01 - Acute respiratory failure with hypoxia Plan to address problem: Pulmonology on board, Trach in place, vent management, follow up recs (4) Anemia Current Visit: Yes Status: Acute Qualifiers: Anemia type: unspecified type Iron deficiency anemia type: I Vitamin B12 deficiency anemia type: V Folate deficiency anemia type: F Bone marrow failure anemia type: B Hemolytic anemia type: H Other causes of anemia: O Chronic kidney disease stage: C Qualified Code(s): D64.9 - Anemia, unspecified Plan to address problem: Hematology on board, follow up recs Subjective Date of service: 11/06/16 Principal diagnosis: Sepsis Syndrome; MAHA; RAJESH; CHF; TTP Interval history: Patient unresponsive, on ventilator via Trach. Family at bedside Objective - Vital Signs Vital signs: Vital Signs - 12hr 11/06/16 11/06/16 11/06/16 01:00 02:00 03:00 Temperature Pulse Rate 96 H 94 H 98 H Respiratory 21 21 22 Rate Blood Pressure 94/68 90/63 100/73 O2 Sat by Pulse 99 Oximetry O2 Sat by Pulse Oximetry [ Assessment] 11/06/16 11/06/16 11/06/16 03:59 04:00 04:01 Temperature 99.9 F H 99.9 F H Pulse Rate 100 H Respiratory 18 21 Rate Blood Pressure 100/73 O2 Sat by Pulse 97 Oximetry O2 Sat by Pulse Oximetry [ Assessment] 11/06/16 11/06/16 11/06/16 04:30 05:00 06:00 Temperature Pulse Rate 95 H 96 H 93 H Respiratory 21 21 Rate Blood Pressure 100/73 89/64 94/65 O2 Sat by Pulse 98 Oximetry O2 Sat by Pulse Oximetry [ Assessment] 11/06/16 11/06/16 11/06/16 07:00 08:00 08:04 Temperature 99 F Pulse Rate 93 H 100 H Respiratory 19 25 H Rate Blood Pressure 92/65 97/70 O2 Sat by Pulse 99 95 97 Oximetry O2 Sat by Pulse Oximetry [ Assessment] 11/06/16 11/06/16 11/06/16 08:05 09:00 10:00 Temperature Pulse Rate 99 H 102 H Respiratory 23 27 H Rate Blood Pressure 96/72 92/63 O2 Sat by Pulse 100 99 Oximetry O2 Sat by Pulse 96 Oximetry [ Assessment] 11/06/16 11/06/16 11/06/16 11:00 11:59 12:00 Temperature 98.5 F Pulse Rate 92 H 96 H Respiratory 20 25 H Rate Blood Pressure 93/66 97/68 O2 Sat by Pulse 100 100 100 Oximetry O2 Sat by Pulse Oximetry [ Assessment] - General Appearance General appearance: frail (on ventilator-Trach in place) EENT: ATNC Neck: no JVD Respiratory: Present: Other (Lung sounds decreased bilaterally, trach in place) Cardiology: S1S2, other (ACCESS: Right Vas Catheter intact) Gastrointestinal: normoactive bowel sounds (PEG tube intact administering tube feeding) Integumentary: other (right hand ulcer noted; Left arm wound with dressing in place, bilateral lower extremity skin wounds with dressings in place) Neurologic: other (unresponsive, on ventilator via Tracheostomy) Musculoskeletal: other (1+ edema to both lower extremities) - Lab 11/06/16 08:10 11/06/16 08:10 Most recent lab results Calcium 7.2 mg/dL (8.4-10.2) L 11/06/16 08:10 Phosphorus 5.80 mg/dL (2.5-4.5) H 11/03/16 03:25
--- NOTE | 2016-11-06 16:16 | Progress Note ---
Assessment and Plan Assessment and plan: Patient is a 61-year-old man without known past medical history who presented to the emergency department [facility] on 10/13/16, complaining of bilateral leg swelling that worsened for the last 4 days. He was found to have severe metabolic acidosis, creatinine was 14.5 with hyperkalemia, emergent Hemodialysis was done. He was also found to have severe pancytopenia, thrombocytopenia and Dr. 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 He was on bipap and was intubated 10/16/16, details are not readily available on why he needed to be intubated, no nursing note for 10/16. -Acute encephalopathy, not sedated, see Neurologist note below -AFIB WITH RVR: Cardiology is following -Group B strep bacteremia: JONATHAN done on 10/27/16 but plt count too low, probably when plt count over 50k -Acute Respiratory failure with hypoxia, intubated: continue mv -Pancytopenia [leukopenia, severe anemia, Woresening thrombocytopenia] heme/onc is following, s/p PLASMAPHERSIS, s/p PRBC transfusion, s/p plt -ARF, renal tubular stasis, poa -secondary coagulopathy -Lactic acidosis -Probable TTP, await [id number] results -hypoglycemia -Acute systolic congestive heart failure EF around 30% -SEVERE SEPSIS, poa per Neurologist, Dr. Bernardo "61 YO M Hx HTN admitted 10/13 w/ sepsis w/ bacteremia, severe metabolic acidosis , RAJESH requiring emergent HD, severe pancytopenia, ? DIC vs. HUS vs. TTP on Plasmapheresis and acute respiratory failure with hypoxia s/p intubation. There has not been cleared documented episode of cardiac arrest but pt was hypotensive during admission. On exam eyes open to stimlation, stuporous MS poor concentration, paucity of speech, intact brainstem reflexes but not able to follow midline/peripheral commands w/ grossly intact motor-sensory exam as withdraws from pain in UE but triple flexion LE but otherwise grossly intact symmetric neurologic exam, consistent with toxic metabolic infectious derangement as the etiology for neurologic decompensation. CTH 10/13 vague L anterior internal capsule hypodensities and chronic lacunes L brainstem and L periventricular white matter. B12/TSH/NH4 normal. 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 No Stone dispensed d/t RAJESH. TTE w/o endocarditis/thrombus. Recommendations: 1. Check f/u CTH and CTA H/N 2. Cont Infectious work up/medical management for UTI, PNA, cellulitis, bacteremia, etc. 3. Avoid hyponatremia, hypo/hyper-calcemia, hypo/hyperglycemia, acidosis, hypoxia/hypoxemia, hypercarbia/hypercapnia 4. Avoid institution of any psychoactive medications (e.g. antihistamines, anticholinergics, BZD, hypnotics, opiates) as able unless low doses of low potency antipsychotic needed for behavioral issues complicating medical care 5. Thiamine/Folate/CIWA protocol accordingly for any hx obtained to suggest EtOH withdrawal 6. Cont home meds-there is no neurologic indication to change CTH confirms multifocal hemorrhagic lesions but no midline shift/compression of brain structures/significant mass effect and is actually improved from prior MRI. CTA H/N w/o vascular lesion. JONATHAN w/o endocarditis or source of emboli. 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 Recs: 1. Avoid all blood thinners until hemorrhage stable 2. BP control: goal < 140/90 using prn Labetalol/Hydralyzine/Nicardipine. Cont home BP med. 3. Cont Infectious work up/medical management for UTI, PNA, cellulitis, bacteremia, etc. 3. Avoid hyponatremia, hypo/hyper-calcemia, hypo/hyperglycemia, acidosis, hypoxia/hypoxemia, hypercarbia/hypercapnia 4. Avoid institution of any psychoactive medications (e.g. antihistamines, anticholinergics, BZD, hypnotics, opiates) as able unless low doses of low potency antipsychotic needed for behavioral issues complicating medical care 5. Thiamine/Folate/CIWA protocol accordingly for any hx obtained to suggest EtOH withdrawal 6. Cont home meds-there is no neurologic indication to change 7. DVT Prophylaxis: SCDs/TEDs 8. Dispo: PT/OT/CM evaluations" Trach and peg done drop in HCt, transfuse prbc and repeat h/h 11/05/16: pt count dropped to 34, renal function much improved, h/h steady, continue to monitor. 11/06/16: plt count still low. Repeat in am. Severe protein calorie malnutrition , poa, getting worse, ?increase PEG feedings, Senior Internal Auditor is following. History Interval history: Patient seen and examined. Follow up on respiratory failure, patient still intubated. Overnight uneventful. No cp, sob, n/v or severe headaches. Imaging, old records, testing, labs, nursing notes reviewed. Hospitalist Physical - Physical exam Narrative exam: GEN: Critically ill intubated but not sedated HEENT: Eyes are floating,trach in place CVS: irregular, NORMAL S1S2 LUNGS/CHEST: NORMAL CHEST EXPANSION B, GOOD AIR ENTRY B ABD: SOFT, peg in place POSITIVE BOWEL SOUNDS, NONDISTENDED, NO REBOUND OR GUARDING NEURO: CN 2-12 GROSSLY INTACT, he doesn't follow commands PSY: Unresponsive - Constitutional Vitals: Temp Pulse Resp BP Pulse Ox 98.5 F 95 H 25 H 90/60 97 11/06/16 12:00 11/06/16 15:31 11/06/16 15:31 11/06/16 15:31 11/06/16 15:50 General appearance: Absent: severe distress Results - Labs CBC & Chem 7: 11/06/16 08:10 11/06/16 08:10 Labs: Laboratory Last Values WBC 8.6 K/mm3 (4.5-11.0) 11/06/16 08:10 RBC 2.78 M/mm3 (3.65-5.03) L 11/06/16 08:10 Hgb 8.7 gm/dl (11.8-15.2) L 11/06/16 08:10 Hct 26.4 % (35.5-45.6) L 11/06/16 08:10 MCV 95 fl (84-94) H 11/06/16 08:10 MCH 31 pg (28-32) 11/06/16 08:10 MCHC 33 % (32-34) 11/06/16 08:10 RDW 17.3 % (13.2-15.2) H 11/06/16 08:10 Plt Count 34 K/mm3 (140-440) L 11/06/16 08:10 Lymph % (Auto) Telegraphic Typewriter Installer 10/14/16 04:34 [place] % (Auto) Telegraphic Typewriter Installer 10/14/16 04:34 Eos % (Auto) Telegraphic Typewriter Installer 10/14/16 04:34 Baso % (Auto) Telegraphic Typewriter Installer 10/14/16 04:34 Lymph # Telegraphic Typewriter Installer 10/14/16 04:34 [place] # Telegraphic Typewriter Installer 10/14/16 04:34 Eos # Telegraphic Typewriter Installer 10/14/16 04:34 Baso # Telegraphic Typewriter Installer 10/14/16 04:34 Add Manual Diff Complete 11/05/16 05:40 Total Counted 100 11/05/16 05:40 Seg Neutrophils % Telegraphic Typewriter Installer 11/03/16 03:25 Seg Neuts % (Manual) 44.0 % (40.0-70.0) 11/05/16 05:40 Band Neutrophils % 54.0 % 11/05/16 05:40 Lymphocytes % (Manual) 1.0 % (13.4-35.0) L 11/05/16 05:40 Reactive Lymphs % (Man) 0 % 11/05/16 05:40 Monocytes % (Manual) 1.0 % (0.0-7.3) 11/05/16 05:40 Eosinophils % (Manual) 0 % (0.0-4.3) 11/05/16 05:40 Basophils % (Manual) 0 % (0.0-1.8) 11/05/16 05:40 Metamyelocytes % 0 % 11/05/16 05:40 Myelocytes % 0 % 11/05/16 05:40 Promyelocytes % 0 % 11/05/16 05:40 Blast Cells % 0 % 11/05/16 05:40 Nucleated RBC % Not Reportable 11/05/16 05:40 Seg Neutrophils # Telegraphic Typewriter Installer 10/14/16 04:34 Seg Neutrophils # Man 2.9 K/mm3 (1.8-7.7) 11/05/16 05:40 Band Neutrophils # 3.6 K/mm3 11/05/16 05:40 Lymphocytes # (Manual) 0.1 K/mm3 (1.2-5.4) L 11/05/16 05:40 Abs React Lymphs (Man) 0.0 K/mm3 11/05/16 05:40 Monocytes # (Manual) 0.1 K/mm3 (0.0-0.8) 11/05/16 05:40 Eosinophils # (Manual) 0.0 K/mm3 (0.0-0.4) 11/05/16 05:40 Basophils # (Manual) 0.0 K/mm3 (0.0-0.1) 11/05/16 05:40 Metamyelocytes # 0.0 K/mm3 11/05/16 05:40 Myelocytes # 0.0 K/mm3 11/05/16 05:40 Promyelocytes # 0.0 K/mm3 11/05/16 05:40 Blast Cells # 0.0 K/mm3 11/05/16 05:40 WBC Morphology Not Reportable 11/05/16 05:40 Hypersegmented Neuts Not Reportable 11/05/16 05:40 Hyposegmented Neuts Not Reportable 11/05/16 05:40 Hypogranular Neuts Not Reportable 11/05/16 05:40 Smudge Cells Not Reportable 11/05/16 05:40 Toxic Granulation Not Reportable 11/05/16 05:40 Toxic Vacuolation Not Reportable 11/05/16 05:40 Dohle Bodies Not Reportable 11/05/16 05:40 Pelger-Huet Anomaly Not Reportable 11/05/16 05:40 Madhu Rods Not Reportable 11/05/16 05:40 Platelet Estimate Appears decreased 11/05/16 05:40 Clumped Platelets Not Reportable 11/05/16 05:40 Plt Clumps, EDTA Not Reportable 11/05/16 05:40 Large Platelets 1+ 11/05/16 05:40 Giant Platelets Not Reportable 11/05/16 05:40 Platelet Satelliting Not Reportable 11/05/16 05:40 Plt Morphology Comment Not Reportable 11/05/16 05:40 RBC Morphology Not Reportable 11/05/16 05:40 Dimorphic RBCs Not Reportable 11/05/16 05:40 Polychromasia Not Reportable 11/05/16 05:40 Hypochromasia Not Reportable 11/05/16 05:40 Poikilocytosis Not Reportable 11/05/16 05:40 Basophilic Stippling Rare 10/21/16 10:30 Anisocytosis 1+ 11/05/16 05:40 Microcytosis Not Reportable 11/05/16 05:40 Macrocytosis Not Reportable 11/05/16 05:40 Spherocytes Not Reportable 11/05/16 05:40 Pappenheimer Bodies Not Reportable 11/05/16 05:40 Sickle Cells Not Reportable 11/05/16 05:40 Target Cells Not Reportable 11/05/16 05:40 Tear Drop Cells Not Reportable 11/05/16 05:40 Ovalocytes Not Reportable 11/05/16 05:40 Stomatocytes Few 10/28/16 05:45 Helmet Cells Not Reportable 11/05/16 05:40 Goodman-Soham Bodies Not Reportable 11/05/16 05:40 [place] Rings Not Reportable 11/05/16 05:40 [place] Cells Not Reportable 11/05/16 05:40 Bite Cells Not Reportable 11/05/16 05:40 Crenated Cell Not Reportable 11/05/16 05:40 Elliptocytes 1+ 11/05/16 05:40 Acanthocytes (Spur) Not Reportable 11/05/16 05:40 Rouleaux Not Reportable 11/05/16 05:40 Hemoglobin C Crystals Not Reportable 11/05/16 05:40 Schistocytes Not Reportable 11/05/16 05:40 Malaria parasites Not Reportable 11/05/16 05:40 ESR 77 mm/Hr (0-20) 10/14/16 04:34 Pal Bodies Not Reportable 11/05/16 05:40 Haptoglobin <15 mg/dL (43-212) L 10/15/16 12:00 Hem Pathologist Commnt No 11/05/16 05:40 PT 20.3 Sec. (12.2-14.9) H 11/04/16 05:40 INR 1.74 (0.87-1.13) H 11/04/16 05:40 Fibrinogen 557 mg/dl (211-480) H 10/14/16 09:58 Lupus Anticoagulant see below H 10/14/16 03:00 LA PTT Baseline 55 sec (<=40) H 10/14/16 03:00 dRVVT Confirm Interp Negative (Negative) 10/14/16 03:00 POC ABG pH 7.464 (7.35-7.45) H 11/05/16 21:31 POC ABG pCO2 34.8 (35-45) L 11/05/16 21:31 POC ABG pO2 219 (80-105) H 11/05/16 21:31 POC ABG HCO3 25.0 11/05/16 21:31 POC ABG Total CO2 26 11/05/16 21:31 POC ABG O2 Sat 100 11/05/16 21:31 POC ABG Base Excess 1 11/05/16 21:31 FiO2 28 % 11/05/16 21:31 Sodium 137 mmol/L (137-145) 11/06/16 08:10 Potassium 3.9 mmol/L (3.6-5.0) 11/06/16 08:10 Chloride 97.8 mmol/L (98-107) L 11/06/16 08:10 Carbon Dioxide 24 mmol/L (22-30) 11/06/16 08:10 Anion Gap 19 mmol/L 11/06/16 08:10 BUN 72 mg/dL (9-20) H 11/06/16 08:10 Creatinine 3.0 mg/dL (0.8-1.5) H 11/06/16 08:10 Estimated GFR 21 ml/min 11/06/16 08:10 BUN/Creatinine Ratio 24.00 % 11/06/16 08:10 Glucose 173 mg/dL (75-100) H 11/06/16 08:10 POC Glucose 138 (70-105) H 11/06/16 05:09 Lactic Acid 3.10 mmol/L (0.7-2.0) H* 11/01/16 20:55 Uric Acid 8.0 mg/dL (3.5-7.6) H 10/14/16 03:00 Calcium 7.2 mg/dL (8.4-10.2) L 11/06/16 08:10 Phosphorus 5.80 mg/dL (2.5-4.5) H 11/03/16 03:25 Iron 146 ug/dL (49-181) 10/15/16 05:35 TIBC 166 mcg/dL (250-450) L 10/15/16 05:35 Erythropoietin 148.2 mIU/mL (2.6-18.5) H 10/19/16 14:15 Ferritin 9562.0 ng/mL (13.0-400.0) H 10/15/16 05:35 Total Bilirubin 0.90 mg/dL (0.1-1.2) 11/06/16 08:10 Direct Bilirubin 1.1 mg/dL (0-0.2) H 10/14/16 09:58 Indirect Bilirubin 0.2 mg/dL 10/14/16 09:58 AST 105 units/L (5-40) H 11/06/16 08:10 ALT 51 units/L (7-56) 11/06/16 08:10 Alkaline Phosphatase 759 units/L (35-129) H 11/06/16 08:10 Ammonia 32.0 umol/L (25-60) 10/19/16 14:15 Lactate Dehydrogenase 3871 units/L (91-180) H 10/15/16 05:35 Troponin T 0.079 ng/mL (0.00-0.029) H 10/13/16 10:14 C-Reactive Protein 7.40 mg/dL (0.00-1.30) H 10/24/16 16:30 NT-Pro-B Natriuret Pep > 92815 pg/mL (0-900) H 10/13/16 10:14 Serum Total Protein 5.6 g/dL (6.1-8.1) L 10/13/16 14:50 Total Protein 5.1 g/dL (6.3-8.2) L 11/06/16 08:10 Albumin 1.9 g/dL (3.9-5) L 11/06/16 08:10 Albumin/Globulin Ratio 0.6 % 11/06/16 08:10 Srjyl-4-Rkzmbctwm 0.5 g/dL (0.2-0.3) H 10/13/16 14:50 Lgbsu-5-Pblxckfkd 0.6 g/dL (0.5-0.9) 10/13/16 14:50 Beta Globulins 0.3 g/dL (0.2-0.5) 10/13/16 14:50 Gamma Globulins 1.7 g/dL (0.8-1.7) 10/13/16 14:50 Abnorm Protein Band 1 1.4 g/dL H 10/13/16 14:50 PEP Interpretation see below H 10/13/16 14:50 Triglycerides 119 mg/dL (2-149) 10/13/16 10:14 Cholesterol 71 mg/dL (50-199) 10/13/16 10:14 LDL Cholesterol Direct 41 mg/dL (50-130) L 10/13/16 10:14 HDL Cholesterol 7 mg/dL (40-59) L 10/13/16 10:14 Cholesterol/HDL Ratio 10.14 % 10/13/16 10:14 Lipase 21 units/L (13-60) 10/15/16 05:35 Vitamin B12 893.9 pg/mL (211-911) 10/14/16 03:00 TSH 0.526 mlU/mL (0.270-4.200) 10/19/16 14:15 Random Vancomycin 19.2 ug/mL (0-40.0) 11/01/16 06:00 IgG 1040 mg/dL (694-1618) 10/19/16 14:15 IgA 149 mg/dL (81-463) 10/19/16 14:15 IgM 53 mg/dL (48-271) 10/19/16 14:15 XU Screen Negative (Negative) 10/13/16 14:50 Proteinase 3 (PR3) Ab <1.0 AI (<1.0) 10/13/16 14:50 Myeloperoxidase Ab <1.0 AI (<1.0) 10/13/16 14:50 Glomerular Base Mem IgG <1.0 AI (<1.0) 10/13/16 14:50 Complement C3 101 mg/dL (90-180) 10/13/16 14:50 Complement C4 16 mg/dL (16-47) 10/13/16 14:50 Hep Bs Antigen Non-reactive (Negative) 10/13/16 14:50 Hepatitis C Antibody Non-reactive (NonReactive) 10/13/16 14:50 HIV 1&2 Antibody Rapid Non react (Non React) 10/13/16 14:50 HIV P24 Antigen Non react (Non React) 10/13/16 14:50 Schistocytes Smear None seen 10/15/16 12:00 Flow Intrp 16+ Markers Scanned into [facility] rec 10/14/16 11:30 Flow Cytometry Interp Scanned into [facility] rec 10/14/16 11:30 Miscellaneous Test Flexitest 1 10/26/16 06:15 Blood Type O POSITIVE 11/03/16 13:02 Antibody Screen TNR 11/03/16 13:02 MADIHA Antibody Screen Negative 11/03/16 13:02 Direct Antiglob Test Negative 10/14/16 03:00 ELAINE, Poly Interpret Negative 10/14/16 03:00 Crossmatch See Detail 11/03/16 13:02
--- NOTE | 2016-11-07 00:04 | Consultation ---
History of Present Illness - Reason for Consult Consult date: 11/06/16 - History of Present Illness Patient seen/examined, labs reviewed. clinically still the same.Awaiting the result of newly ordered [id number]. Past History Past Medical History: hypertension, other (Had shingles in November 27-) Past Surgical History: No surgical history Social history: , full code, other (Patienti s and lives with his ). denies: smoking, alcohol abuse, prescription drug abuse, IV drug use Family history: no significant family history Medications and Allergies Allergies Allergy/AdvReac Type Severity Reaction Status Date / Time No Known Allergies Allergy Unverified 10/13/16 09:41 Home Medications Medication Instructions Recorded Confirmed Last Taken Type Naproxen Sodium [Aleve TAB] 2 tab PO Q8H PRN 10/13/16 10/13/16 10/12/16 14:00 History Active Meds: Active Medications Acetaminophen (Tylenol) 1,000 mg UT Q4H PRN PRN Reason: Pain, Mild (1-3) Last Admin: 10/20/16 15:40 Dose: 1,000 mg Acetaminophen (Tylenol) 650 mg FEEDTUBE Q6H PRN PRN Reason: Pain, Mild (1-3) Last Admin: 10/24/16 10:56 Dose: 650 mg Alteplase, Recombinant (Cathflo) 4 mg IV ROD PRN PRN Reason: hemodialysis Last Admin: 11/02/16 09:37 Dose: 4 mg Lipase/Protease/Amylase (Pancreaze Dr 10,500 Unit) 1 each FEEDTUBE PRN PRN PRN Reason: For Clogged Feeding Tube Dextrose (D50w (25gm)) 25 ml IV PRN PRN PRN Reason: Hypoglycemia Last Admin: 10/18/16 07:20 Dose: 25 ml Diphenhydramine HCl (Benadryl) 50 mg IV Q6H PRN PRN Reason: Itching Last Admin: 10/24/16 10:57 Dose: 50 mg Famotidine (Pepcid) 20 mg PO Q24H EDWINA Last Admin: 11/06/16 10:15 Dose: 20 mg Haloperidol Lactate (Haldol) 5 mg IM Q6H PRN PRN Reason: Agitation Last Admin: 10/14/16 21:11 Dose: 5 mg Heparin Sodium (Porcine) (Heparin) 10,000 unit IV ROD PRN PRN Reason: for plasmapheresis- vascath Last Admin: 11/03/16 17:49 Dose: 10,000 unit Hydrophilic Ointment (Vaseline Lip Therapy) 1 applic TP Q2H PRN PRN Reason: Dry Lips Propofol (Diprivan 10 Mg/Ml) 1,000 mg in 100 mls @ 1.827 mls/hr IV TITR EDIWNA; 5 MCG/KG/MIN PRN Reason: Protocol Last Titration: 10/20/16 10:12 Dose: 0 mcg/kg/min, 0 mls/hr Fentanyl Citrate (Fentanyl Drip Premix) 2,000 mcg in 100 mls @ 3.045 mls/hr IV TITR EDWINA; 1 MCG/KG/HR PRN Reason: Protocol Sodium Chloride (Nacl 0.9%) 100 mls @ 999 mls/hr IV ROD PRN PRN Reason: Hypotension Insulin Aspart (Novolog) 0 units SUB-Q Q6HR EDWINA PRN Reason: Protocol Last Admin: 11/06/16 18:20 Dose: 3 units Labetalol HCl (Normodyne) 20 mg IV Q6H PRN PRN Reason: Hypertension Last Admin: 10/25/16 05:33 Dose: 20 mg Loperamide HCl (Imodium A-D) 2 mg PO Q2H PRN PRN Reason: Diarrhea Last Admin: 11/03/16 14:09 Dose: 2 mg Metoprolol Tartrate (Lopressor) 25 mg PO BID EDWINA Last Admin: 11/06/16 22:04 Dose: Not Given Multi-Ingred Cream/Lotion/Oil/Oint (Artificial Tears Ophth Oint) 1 applic OU Q4H PRN PRN Reason: Dry Eye(s) Ondansetron HCl (Zofran) 4 mg IV Q8H PRN PRN Reason: Nausea And Vomiting Simple Syrup (Simple Syrup) 15 ml FEEDTUBE PRN PRN PRN Reason: Hypoglycemia Simple Syrup (Simple Syrup) 30 ml FEEDTUBE PRN PRN PRN Reason: Hypoglycemia Sodium Bicarbonate (Sodium Bicarbonate) 325 mg FEEDTUBE PRN PRN PRN Reason: For Clogged Feeding Tube Last Admin: 11/02/16 11:08 Dose: 325 mg Sodium Chloride (Sodium Chloride Flush Syringe 10 Ml) 10 ml IV PRN PRN PRN Reason: LINE FLUSH Last Admin: 10/17/16 20:45 Dose: 10 ml Review of Systems Constitutional: other (NR.) Exam - Constitutional Vitals: Temp Pulse Resp BP Pulse Ox 100 F H 103 H 25 H 90/59 100 11/06/16 20:00 11/06/16 22:04 11/06/16 21:31 11/06/16 22:04 11/06/16 21:31 - EENT Eyes: Present: PERRL ENT: clear oral mucosa - Neck Neck: Present: supple, normal ROM - Respiratory Respiratory: bilateral: CTA - Cardiovascular Heart Sounds: Present: S1 & S2. Absent: rub, click - Extremities Extremities: pulses symmetrical, No edema Peripheral Pulses: within normal limits - Abdominal General gastrointestinal: Present: soft, non-tender, non-distended, normal bowel sounds Male genitourinary: Present: deferred - Rectal Rectal Exam: deferred - Integumentary Integumentary: Present: clear, warm, dry Results - Labs CBC & Chem 7: 11/06/16 08:10 11/06/16 08:10 Labs: Abnormal lab results 11/05/16 11/06/16 11/06/16 Range/Units 23:49 05:09 08:10 RBC (3.65-5.03) M/mm3 Hgb (11.8-15.2) gm/dl Hct (35.5-45.6) % MCV (84-94) fl RDW (13.2-15.2) % Plt Count (140-440) K/mm3 Chloride 97.8 L (98-107) mmol/L BUN 72 H (9-20) mg/dL Creatinine 3.0 H (0.8-1.5) mg/dL Glucose 173 H (75-100) mg/dL POC Glucose 130 H 138 H (70-105) Calcium 7.2 L (8.4-10.2) mg/dL AST 105 H (5-40) units/L Alkaline Phosphatase 759 H (35-129) units/L Total Protein 5.1 L (6.3-8.2) g/dL Albumin 1.9 L (3.9-5) g/dL 11/06/16 Range/Units 08:10 RBC 2.78 L (3.65-5.03) M/mm3 Hgb 8.7 L (11.8-15.2) gm/dl Hct 26.4 L (35.5-45.6) % MCV 95 H (84-94) fl RDW 17.3 H (13.2-15.2) % Plt Count 34 L (140-440) K/mm3 Chloride (98-107) mmol/L BUN (9-20) mg/dL Creatinine (0.8-1.5) mg/dL Glucose (75-100) mg/dL POC Glucose (70-105) Calcium (8.4-10.2) mg/dL AST (5-40) units/L Alkaline Phosphatase (35-129) units/L Total Protein (6.3-8.2) g/dL Albumin (3.9-5) g/dL Assessment and Plan - Patient Problems (1) Anemia Current Visit: Yes Status: Acute Qualifiers: Anemia type: unspecified type Iron deficiency anemia type: I Vitamin B12 deficiency anemia type: V Folate deficiency anemia type: F Bone marrow failure anemia type: B Hemolytic anemia type: H Other causes of anemia: O Chronic kidney disease stage: C Qualified Code(s): D64.9 - Anemia, unspecified Plan to address problem: will replace if less than 7.0 (2) Leucopenia Current Visit: Yes Status: Acute Qualifiers: Leukopenia type: unspecified Neutropenia type: N Qualified Code(s): D72.819 - Decreased white blood cell count, unspecified Plan to address problem: same as above. resolved. Same as above (3) Renal failure Current Visit: Yes Status: Acute Qualifiers: Renal failure chronicity: acute Acute renal failure type: unspecified Chronic kidney disease stage: C Qualified Code(s): N17.9 - Acute kidney failure, unspecified Plan to address problem: See w/up, and renal service. see notes Follow cutter operator.
[2016-11-07] MEDS: NOVOLOG SUB-Q SCH ×4 (00:05→18:42)
--- NOTE | 2016-11-07 08:06 | Progress Note ---
Assessment and Plan Assessment and plan: Patient is a 61-year-old man without known past medical history who presented to the emergency department [facility] on 10/13/16, complaining of bilateral leg swelling that worsened for the last 4 days. He was found to have severe metabolic acidosis, creatinine was 14.5 with hyperkalemia, emergent Hemodialysis was done. He was also found to have severe pancytopenia, thrombocytopenia and Dr. 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 He was on bipap and was intubated 10/16/16, details are not readily available on why he needed to be intubated, no nursing note for 10/16. -Acute encephalopathy, not sedated, see Neurologist note below -AFIB WITH RVR, stable: Cardiology is following -Group B strep bacteremia: JONATHAN done on 10/27/16 -Acute Respiratory failure with hypoxia, intubated: continue mv -Pancytopenia [leukopenia, severe anemia, Woresening thrombocytopenia] heme/onc is following, s/p PLASMAPHERSIS, s/p PRBC transfusion, s/p plt -ARF, renal tubular stasis, poa s/p hemodialysis: monitor closely -secondary coagulopathy -Lactic acidosis -Probable TTP, await [id number] results -hypoglycemia, resolved -Acute systolic congestive heart failure EF around 30% -SEVERE SEPSIS, poa per Neurologist, Dr. Bernardo "61 YO M Hx HTN admitted 10/13 w/ sepsis w/ bacteremia, severe metabolic acidosis , RAJESH requiring emergent HD, severe pancytopenia, ? DIC vs. HUS vs. TTP on Plasmapheresis and acute respiratory failure with hypoxia s/p intubation. There has not been cleared documented episode of cardiac arrest but pt was hypotensive during admission. On exam eyes open to stimlation, stuporous MS poor concentration, paucity of speech, intact brainstem reflexes but not able to follow midline/peripheral commands w/ grossly intact motor-sensory exam as withdraws from pain in UE but triple flexion LE but otherwise grossly intact symmetric neurologic exam, consistent with toxic metabolic infectious derangement as the etiology for neurologic decompensation. CTH 10/13 vague L anterior internal capsule hypodensities and chronic lacunes L brainstem and L periventricular white matter. B12/TSH/NH4 normal. 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 No Stone dispensed d/t RAJESH. TTE w/o endocarditis/thrombus. Recommendations: 1. Check f/u CTH and CTA H/N 2. Cont Infectious work up/medical management for UTI, PNA, cellulitis, bacteremia, etc. 3. Avoid hyponatremia, hypo/hyper-calcemia, hypo/hyperglycemia, acidosis, hypoxia/hypoxemia, hypercarbia/hypercapnia 4. Avoid institution of any psychoactive medications (e.g. antihistamines, anticholinergics, BZD, hypnotics, opiates) as able unless low doses of low potency antipsychotic needed for behavioral issues complicating medical care 5. Thiamine/Folate/CIWA protocol accordingly for any hx obtained to suggest EtOH withdrawal 6. Cont home meds-there is no neurologic indication to change CTH confirms multifocal hemorrhagic lesions but no midline shift/compression of brain structures/significant mass effect and is actually improved from prior MRI. CTA H/N w/o vascular lesion. JONATHAN w/o endocarditis or source of emboli. 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 Recs: 1. Avoid all blood thinners until hemorrhage stable 2. BP control: goal < 140/90 using prn Labetalol/Hydralyzine/Nicardipine. Cont home BP med. 3. Cont Infectious work up/medical management for UTI, PNA, cellulitis, bacteremia, etc. 3. Avoid hyponatremia, hypo/hyper-calcemia, hypo/hyperglycemia, acidosis, hypoxia/hypoxemia, hypercarbia/hypercapnia 4. Avoid institution of any psychoactive medications (e.g. antihistamines, anticholinergics, BZD, hypnotics, opiates) as able unless low doses of low potency antipsychotic needed for behavioral issues complicating medical care 5. Thiamine/Folate/CIWA protocol accordingly for any hx obtained to suggest EtOH withdrawal 6. Cont home meds-there is no neurologic indication to change 7. DVT Prophylaxis: SCDs/TEDs 8. Dispo: PT/OT/CM evaluations" Trach and peg done 11/05/16: pt count dropped to 34, renal function much improved, h/h steady, continue to monitor. 11/06/16: plt count still low. Repeat in am. Severe protein calorie malnutrition , poa, getting worse, ?increase PEG feedings, [facility] Weir is following. 11/07/16: ADAMT13 still pending, Heme/onc to follow up. History Interval history: Patient seen and examined. Follow up on respiratory failure, patient still intubated. Overnight uneventful. No cp, sob, n/v or severe headaches. Imaging, old records, testing, labs, nursing notes reviewed. Hospitalist Physical - Physical exam Narrative exam: GEN: Critically ill intubated but not sedated HEENT: Eyes are floating,trach in place CVS: irregular, NORMAL S1S2 LUNGS/CHEST: NORMAL CHEST EXPANSION B, GOOD AIR ENTRY B ABD: SOFT, peg in place POSITIVE BOWEL SOUNDS, NONDISTENDED, NO REBOUND OR GUARDING NEURO: CN 2-12 GROSSLY INTACT, he doesn't follow commands PSY: Unresponsive - Constitutional Vitals: Temp Pulse Resp BP Pulse Ox 98.9 F 97 H 27 H 85/58 100 11/07/16 04:00 11/07/16 07:33 11/07/16 07:33 11/07/16 07:33 11/07/16 07:33 General appearance: Absent: severe distress Results - Labs CBC & Chem 7: 11/06/16 08:10 11/06/16 08:10 Labs: Laboratory Last Values WBC 8.6 K/mm3 (4.5-11.0) 11/06/16 08:10 RBC 2.78 M/mm3 (3.65-5.03) L 11/06/16 08:10 Hgb 8.7 gm/dl (11.8-15.2) L 11/06/16 08:10 Hct 26.4 % (35.5-45.6) L 11/06/16 08:10 MCV 95 fl (84-94) H 11/06/16 08:10 MCH 31 pg (28-32) 11/06/16 08:10 MCHC 33 % (32-34) 11/06/16 08:10 RDW 17.3 % (13.2-15.2) H 11/06/16 08:10 Plt Count 34 K/mm3 (140-440) L 11/06/16 08:10 Lymph % (Auto) [employer] 10/14/16 04:34 Blount % (Auto) [employer] 10/14/16 04:34 Eos % (Auto) [employer] 10/14/16 04:34 Baso % (Auto) [employer] 10/14/16 04:34 Lymph # [employer] 10/14/16 04:34 Blount # [employer] 10/14/16 04:34 Eos # [employer] 10/14/16 04:34 Baso # [employer] 10/14/16 04:34 Add Manual Diff Complete 11/05/16 05:40 Total Counted 100 11/05/16 05:40 Seg Neutrophils % [employer] 11/03/16 03:25 Seg Neuts % (Manual) 44.0 % (40.0-70.0) 11/05/16 05:40 Band Neutrophils % 54.0 % 11/05/16 05:40 Lymphocytes % (Manual) 1.0 % (13.4-35.0) L 11/05/16 05:40 Reactive Lymphs % (Man) 0 % 11/05/16 05:40 Monocytes % (Manual) 1.0 % (0.0-7.3) 11/05/16 05:40 Eosinophils % (Manual) 0 % (0.0-4.3) 11/05/16 05:40 Basophils % (Manual) 0 % (0.0-1.8) 11/05/16 05:40 Metamyelocytes % 0 % 11/05/16 05:40 Myelocytes % 0 % 11/05/16 05:40 Promyelocytes % 0 % 11/05/16 05:40 Blast Cells % 0 % 11/05/16 05:40 Nucleated RBC % Not Reportable 11/05/16 05:40 Seg Neutrophils # [employer] 10/14/16 04:34 Seg Neutrophils # Man 2.9 K/mm3 (1.8-7.7) 11/05/16 05:40 Band Neutrophils # 3.6 K/mm3 11/05/16 05:40 Lymphocytes # (Manual) 0.1 K/mm3 (1.2-5.4) L 11/05/16 05:40 Abs React Lymphs (Man) 0.0 K/mm3 11/05/16 05:40 Monocytes # (Manual) 0.1 K/mm3 (0.0-0.8) 11/05/16 05:40 Eosinophils # (Manual) 0.0 K/mm3 (0.0-0.4) 11/05/16 05:40 Basophils # (Manual) 0.0 K/mm3 (0.0-0.1) 11/05/16 05:40 Metamyelocytes # 0.0 K/mm3 11/05/16 05:40 Myelocytes # 0.0 K/mm3 11/05/16 05:40 Promyelocytes # 0.0 K/mm3 11/05/16 05:40 Blast Cells # 0.0 K/mm3 11/05/16 05:40 WBC Morphology Not Reportable 11/05/16 05:40 Hypersegmented Neuts Not Reportable 11/05/16 05:40 Hyposegmented Neuts Not Reportable 11/05/16 05:40 Hypogranular Neuts Not Reportable 11/05/16 05:40 Smudge Cells Not Reportable 11/05/16 05:40 Toxic Granulation Not Reportable 11/05/16 05:40 Toxic Vacuolation Not Reportable 11/05/16 05:40 Dohle Bodies Not Reportable 11/05/16 05:40 Pelger-Huet Anomaly Not Reportable 11/05/16 05:40 Madhu Rods Not Reportable 11/05/16 05:40 Platelet Estimate Appears decreased 11/05/16 05:40 Clumped Platelets Not Reportable 11/05/16 05:40 Plt Clumps, EDTA Not Reportable 11/05/16 05:40 Large Platelets 1+ 11/05/16 05:40 Giant Platelets Not Reportable 11/05/16 05:40 Platelet Satelliting Not Reportable 11/05/16 05:40 Plt Morphology Comment Not Reportable 11/05/16 05:40 RBC Morphology Not Reportable 11/05/16 05:40 Dimorphic RBCs Not Reportable 11/05/16 05:40 Polychromasia Not Reportable 11/05/16 05:40 Hypochromasia Not Reportable 11/05/16 05:40 Poikilocytosis Not Reportable 11/05/16 05:40 Basophilic Stippling Rare 10/21/16 10:30 Anisocytosis 1+ 11/05/16 05:40 Microcytosis Not Reportable 11/05/16 05:40 Macrocytosis Not Reportable 11/05/16 05:40 Spherocytes Not Reportable 11/05/16 05:40 Pappenheimer Bodies Not Reportable 11/05/16 05:40 Sickle Cells Not Reportable 11/05/16 05:40 Target Cells Not Reportable 11/05/16 05:40 Tear Drop Cells Not Reportable 11/05/16 05:40 Ovalocytes Not Reportable 11/05/16 05:40 Stomatocytes Few 10/28/16 05:45 Helmet Cells Not Reportable 11/05/16 05:40 [place] Bodies Not Reportable 11/05/16 05:40 Venetia Rings Not Reportable 11/05/16 05:40 Sabrina Cells Not Reportable 11/05/16 05:40 Bite Cells Not Reportable 11/05/16 05:40 Crenated Cell Not Reportable 11/05/16 05:40 Elliptocytes 1+ 11/05/16 05:40 Acanthocytes (Spur) Not Reportable 11/05/16 05:40 Rouleaux Not Reportable 11/05/16 05:40 Hemoglobin C Crystals Not Reportable 11/05/16 05:40 Schistocytes Not Reportable 11/05/16 05:40 Malaria parasites Not Reportable 11/05/16 05:40 ESR 77 mm/Hr (0-20) 10/14/16 04:34 Pla Bodies Not Reportable 11/05/16 05:40 Haptoglobin <15 mg/dL (43-212) L 10/15/16 12:00 Hem Pathologist Commnt No 11/05/16 05:40 PT 20.3 Sec. (12.2-14.9) H 11/04/16 05:40 INR 1.74 (0.87-1.13) H 11/04/16 05:40 Fibrinogen 557 mg/dl (211-480) H 10/14/16 09:58 Lupus Anticoagulant see below H 10/14/16 03:00 LA PTT Baseline 55 sec (<=40) H 10/14/16 03:00 dRVVT Confirm Interp Negative (Negative) 10/14/16 03:00 POC ABG pH 7.464 (7.35-7.45) H 11/05/16 21:31 POC ABG pCO2 34.8 (35-45) L 11/05/16 21:31 POC ABG pO2 219 (80-105) H 11/05/16 21:31 POC ABG HCO3 25.0 11/05/16 21:31 POC ABG Total CO2 26 11/05/16 21:31 POC ABG O2 Sat 100 11/05/16 21:31 POC ABG Base Excess 1 11/05/16 21:31 FiO2 28 % 11/05/16 21:31 Sodium 137 mmol/L (137-145) 11/06/16 08:10 Potassium 3.9 mmol/L (3.6-5.0) 11/06/16 08:10 Chloride 97.8 mmol/L (98-107) L 11/06/16 08:10 Carbon Dioxide 24 mmol/L (22-30) 11/06/16 08:10 Anion Gap 19 mmol/L 11/06/16 08:10 BUN 72 mg/dL (9-20) H 11/06/16 08:10 Creatinine 3.0 mg/dL (0.8-1.5) H 11/06/16 08:10 Estimated GFR 21 ml/min 11/06/16 08:10 BUN/Creatinine Ratio 24.00 % 11/06/16 08:10 Glucose 173 mg/dL (75-100) H 11/06/16 08:10 POC Glucose 136 (70-105) H 11/07/16 05:09 Lactic Acid 3.10 mmol/L (0.7-2.0) H* 11/01/16 20:55 Uric Acid 8.0 mg/dL (3.5-7.6) H 10/14/16 03:00 Calcium 7.2 mg/dL (8.4-10.2) L 11/06/16 08:10 Phosphorus 5.80 mg/dL (2.5-4.5) H 11/03/16 03:25 Iron 146 ug/dL (49-181) 10/15/16 05:35 TIBC 166 mcg/dL (250-450) L 10/15/16 05:35 Erythropoietin 148.2 mIU/mL (2.6-18.5) H 10/19/16 14:15 Ferritin 9562.0 ng/mL (13.0-400.0) H 10/15/16 05:35 Total Bilirubin 0.90 mg/dL (0.1-1.2) 11/06/16 08:10 Direct Bilirubin 1.1 mg/dL (0-0.2) H 10/14/16 09:58 Indirect Bilirubin 0.2 mg/dL 10/14/16 09:58 AST 105 units/L (5-40) H 11/06/16 08:10 ALT 51 units/L (7-56) 11/06/16 08:10 Alkaline Phosphatase 759 units/L (35-129) H 11/06/16 08:10 Ammonia 32.0 umol/L (25-60) 10/19/16 14:15 Lactate Dehydrogenase 3871 units/L (91-180) H 10/15/16 05:35 Troponin T 0.079 ng/mL (0.00-0.029) H 10/13/16 10:14 C-Reactive Protein 7.40 mg/dL (0.00-1.30) H 10/24/16 16:30 NT-Pro-B Natriuret Pep > 61522 pg/mL (0-900) H 10/13/16 10:14 Serum Total Protein 5.6 g/dL (6.1-8.1) L 10/13/16 14:50 Total Protein 5.1 g/dL (6.3-8.2) L 11/06/16 08:10 Albumin 1.9 g/dL (3.9-5) L 11/06/16 08:10 Albumin/Globulin Ratio 0.6 % 11/06/16 08:10 Ydqis-3-Sytusmtxr 0.5 g/dL (0.2-0.3) H 10/13/16 14:50 Cqnlc-5-Noksvityp 0.6 g/dL (0.5-0.9) 10/13/16 14:50 Beta Globulins 0.3 g/dL (0.2-0.5) 10/13/16 14:50 Gamma Globulins 1.7 g/dL (0.8-1.7) 10/13/16 14:50 Abnorm Protein Band 1 1.4 g/dL H 10/13/16 14:50 PEP Interpretation see below H 10/13/16 14:50 Triglycerides 119 mg/dL (2-149) 10/13/16 10:14 Cholesterol 71 mg/dL (50-199) 10/13/16 10:14 LDL Cholesterol Direct 41 mg/dL (50-130) L 10/13/16 10:14 HDL Cholesterol 7 mg/dL (40-59) L 10/13/16 10:14 Cholesterol/HDL Ratio 10.14 % 10/13/16 10:14 Lipase 21 units/L (13-60) 10/15/16 05:35 Vitamin B12 893.9 pg/mL (211-911) 10/14/16 03:00 TSH 0.526 mlU/mL (0.270-4.200) 10/19/16 14:15 Random Vancomycin 19.2 ug/mL (0-40.0) 11/01/16 06:00 IgG 1040 mg/dL (694-1618) 10/19/16 14:15 IgA 149 mg/dL (81-463) 10/19/16 14:15 IgM 53 mg/dL (48-271) 10/19/16 14:15 XU Screen Negative (Negative) 10/13/16 14:50 Proteinase 3 (PR3) Ab <1.0 AI (<1.0) 10/13/16 14:50 Myeloperoxidase Ab <1.0 AI (<1.0) 10/13/16 14:50 Glomerular Base Mem IgG <1.0 AI (<1.0) 10/13/16 14:50 Complement C3 101 mg/dL (90-180) 10/13/16 14:50 Complement C4 16 mg/dL (16-47) 10/13/16 14:50 Hep Bs Antigen Non-reactive (Negative) 10/13/16 14:50 Hepatitis C Antibody Non-reactive (NonReactive) 10/13/16 14:50 HIV 1&2 Antibody Rapid Non react (Non React) 10/13/16 14:50 HIV P24 Antigen Non react (Non React) 10/13/16 14:50 Schistocytes Smear None seen 10/15/16 12:00 Flow Intrp 16+ Markers Scanned into [facility] rec 10/14/16 11:30 Flow Cytometry Interp Scanned into [facility] rec 10/14/16 11:30 Miscellaneous Test Flexitest 1 10/26/16 06:15 Blood Type O POSITIVE 11/03/16 13:02 Antibody Screen TNR 11/03/16 13:02 MADIHA Antibody Screen Negative 11/03/16 13:02 Direct Antiglob Test Negative 10/14/16 03:00 ELAINE, Poly Interpret Negative 10/14/16 03:00 Crossmatch See Detail 11/03/16 13:02
[2016-11-07 08:52] LABS: Hematocrit 25.9 % (35.5-45.6); Hemoglobin 8.5 gm/dl (11.8-15.2); Mean Corpuscular HGB Conc 33 % (32-34); Mean Corpuscular Hemoglobin 31 pg (28-32); Mean Corpuscular Volume 94 fl (84-94); Red Blood Count 2.76 M/mm3 (3.65-5.03); Red Cell Distribution Width 16.5 % (13.2-15.2); White Blood Count 7.3 K/mm3 (4.5-11.0)
[2016-11-07 09:10] LABS: BUN/Creatinine Ratio 28.48; Calcium 7.7 mg/dL (8.4-10.2)
[2016-11-07 09:39] LABS: Platelet Count 33 K/mm3 (140-440)
[2016-11-07] MEDS: LOPRESSOR PO SCH ×2 (10:00→21:56)
--- NOTE | 2016-11-07 11:36 | Progress Note ---
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 - continue HD/UF per nephrology recs - follow I's and O's (no urine in do bag) - correct electrolytes prn - continue to avoid nephrotoxins - per nephrology otherwise (3) Metabolic acidosis Current Visit: Yes Status: Acute Plan to address problem: - mixed etiology - Lactic Acidosis component resolved - sepsis may have been driving force for that - RAJESH component - continue HD/UF per nephrology prescription - complete Anti-infectives per ID recs (4) CHF (congestive heart failure) Current Visit: Yes Status: Acute Qualifiers: Congestive heart failure type: C Congestive heart failure chronicity: C Plan to address problem: - ECHO consistent with possible infiltrating disease - cardiology consulted - EF 30& - s/p volume resuscitation for sepsis - per cardiology otherwise - JONATHAN negative (5) Pancytopenia Current Visit: Yes Status: Acute Plan to address problem: - hematology on case - s/p plasmapheresis - follow platelet count - follow clinically (6) Acute encephalopathy Current Visit: Yes Status: Acute Plan to address problem: - CT brain negative - likely toxic-metabolic encephalopathy element also - MRI abnormal - neurology evaluation ongoing - following clinically (7) Hypoglycemia Current Visit: Yes Status: Acute Plan to address problem: - improved - suspect sepsis related element - will continue systemic steroids but taper - also continue enteral nutrition - continue glycemic control via SSI at this point (8) Sepsis syndrome Current Visit: Yes Status: Acute Plan to address problem: - s/p antibiotic course - ID on case - CRP and lactate much improved - JONATHAN negative - following clinically - c-diff assay negative - Anti-infectives per ID recs (de-escalating now) (9) Discharge planning issues Current Visit: Yes Status: Acute Plan to address problem: - he remains critically ill on life sustaining interventions including MVS and at risk for further deterioration including ...34' CCT Subjective Date of service: 11/07/16 Principal diagnosis: Sepsis Syndrome; MAHA; RAJESH; CHF; TTP Interval history: Seen and examined at bedside; 24 hour events reviewed; nursing and respiratory care staff consulted; no adverse overnight events reported to me; failed T-piece and PSV trials today; for dialysis today; AMS is persistent; no gross bleeding Objective Vital Signs - 12hr 11/07/16 11/07/16 11/07/16 00:00 00:31 00:47 Temperature 98.9 F Pulse Rate 97 H 99 H Pulse Rate [ 78 From Monitor] Pulse Rate [ 78 Left Dorsalis Pedis] Pulse Rate [ 78 Left Radial] Pulse Rate [ 78 Right Dorsalis Pedis] Pulse Rate [ 78 Right Radial] Respiratory 22 24 Rate Blood Pressure 89/64 89/64 O2 Sat by Pulse 98 100 Oximetry 11/07/16 11/07/16 11/07/16 01:00 01:30 02:00 Temperature Pulse Rate 101 H 98 H 99 H Pulse Rate [ From Monitor] Pulse Rate [ Left Dorsalis Pedis] Pulse Rate [ Left Radial] Pulse Rate [ Right Dorsalis Pedis] Pulse Rate [ Right Radial] Respiratory 25 H 23 26 H Rate Blood Pressure 98/69 98/69 107/61 O2 Sat by Pulse 100 100 Oximetry 11/07/16 11/07/16 11/07/16 02:30 03:00 03:30 Temperature Pulse Rate 105 H 102 H 103 H Pulse Rate [ From Monitor] Pulse Rate [ Left Dorsalis Pedis] Pulse Rate [ Left Radial] Pulse Rate [ Right Dorsalis Pedis] Pulse Rate [ Right Radial] Respiratory 31 H 26 H 23 Rate Blood Pressure 107/61 86/63 86/65 O2 Sat by Pulse 100 100 Oximetry 11/07/16 11/07/16 11/07/16 03:45 04:00 04:30 Temperature 99 F 98.9 F Pulse Rate 102 H 100 H Pulse Rate [ 65 From Monitor] Pulse Rate [ 656 H Left Dorsalis Pedis] Pulse Rate [ 65 Left Radial] Pulse Rate [ 65 Right Dorsalis Pedis] Pulse Rate [ 65 Right Radial] Respiratory 24 24 Rate Blood Pressure 94/66 94/66 O2 Sat by Pulse 100 100 Oximetry 11/07/16 11/07/16 11/07/16 04:55 05:00 05:30 Temperature Pulse Rate 81 102 H 98 H Pulse Rate [ From Monitor] Pulse Rate [ Left Dorsalis Pedis] Pulse Rate [ Left Radial] Pulse Rate [ Right Dorsalis Pedis] Pulse Rate [ Right Radial] Respiratory 24 22 Rate Blood Pressure 114/76 92/63 92/63 O2 Sat by Pulse 98 100 Oximetry 11/07/16 11/07/16 11/07/16 06:00 06:30 07:00 Temperature Pulse Rate 103 H 100 H 98 H Pulse Rate [ From Monitor] Pulse Rate [ Left Dorsalis Pedis] Pulse Rate [ Left Radial] Pulse Rate [ Right Dorsalis Pedis] Pulse Rate [ Right Radial] Respiratory 25 H 27 H 23 Rate Blood Pressure 97/69 97/69 80/56 O2 Sat by Pulse 100 100 99 Oximetry 11/07/16 11/07/16 11/07/16 07:30 07:33 08:00 Temperature 98.7 F Pulse Rate 97 H 97 H 102 H Pulse Rate [ From Monitor] Pulse Rate [ Left Dorsalis Pedis] Pulse Rate [ Left Radial] Pulse Rate [ Right Dorsalis Pedis] Pulse Rate [ Right Radial] Respiratory 26 H 27 H 28 H Rate Blood Pressure 85/58 85/58 99/66 O2 Sat by Pulse 100 100 99 Oximetry 11/07/16 11/07/16 11/07/16 08:30 09:00 09:30 Temperature Pulse Rate 105 H 103 H 100 H Pulse Rate [ From Monitor] Pulse Rate [ Left Dorsalis Pedis] Pulse Rate [ Left Radial] Pulse Rate [ Right Dorsalis Pedis] Pulse Rate [ Right Radial] Respiratory 32 H 28 H 23 Rate Blood Pressure 99/66 98/67 98/67 O2 Sat by Pulse 99 99 98 Oximetry 11/07/16 11/07/16 11/07/16 09:47 10:00 10:30 Temperature Pulse Rate 100 H 99 H 102 H Pulse Rate [ From Monitor] Pulse Rate [ Left Dorsalis Pedis] Pulse Rate [ Left Radial] Pulse Rate [ Right Dorsalis Pedis] Pulse Rate [ Right Radial] Respiratory 22 29 H Rate Blood Pressure 98/67 85/58 85/58 O2 Sat by Pulse 96 99 Oximetry 11/07/16 11:00 Temperature Pulse Rate 98 H Pulse Rate [ From Monitor] Pulse Rate [ Left Dorsalis Pedis] Pulse Rate [ Left Radial] Pulse Rate [ Right Dorsalis Pedis] Pulse Rate [ Right Radial] Respiratory 21 Rate Blood Pressure 83/54 O2 Sat by Pulse 99 Oximetry Constitutional: no acute distress, other (lethargic to encephalopathic) Eyes: non-icteric ENT: oropharynx moist Neck: supple, no lymphadenopathy Effort: mildly labored Ascultation: Bilateral: diminished breath sounds, rales Cardiovascular: irregular rhythm Gastrointestinal: normoactive bowel sounds, soft, non-tender, non-distended Integumentary: normal Extremities: no cyanosis, pulses normal, no ischemia or petechiae, edema Neurologic: non-focal exam (grossly), pupils equal and round, unable to assess Psychiatric: other (unable to assess) CBC and BMP: 11/07/16 08:27 11/07/16 08:27 ABG, PT/INR, D-dimer: ABG POC ABG pH 7.464 (7.35-7.45) H 11/05/16 21:31 POC ABG pCO2 34.8 (35-45) L 11/05/16 21:31 POC ABG pO2 219 (80-105) H 11/05/16 21:31 POC ABG HCO3 25.0 11/05/16 21:31 POC ABG Total CO2 26 11/05/16 21:31 POC ABG O2 Sat 100 11/05/16 21:31 PT/INR, D-dimer PT 20.3 Sec. (12.2-14.9) H 11/04/16 05:40 INR 1.74 (0.87-1.13) H 11/04/16 05:40 Abnormal lab findings: Abnormal Labs 10/13/16 10/13/16 10/13/16 14:50 21:40 22:05 WBC RBC Hgb Hct MCV MCHC RDW Plt Count Seg Neuts % (Manual) Lymphocytes % (Manual) Nucleated RBC % Seg Neutrophils # Man Lymphocytes # (Manual) Haptoglobin PT INR Fibrinogen Lupus Anticoagulant LA PTT Baseline POC ABG pH POC ABG pCO2 POC ABG pO2 Sodium Potassium Chloride Carbon Dioxide BUN Creatinine Glucose POC Glucose 52 L 43 L Lactic Acid Uric Acid Calcium Phosphorus Iron TIBC Erythropoietin Ferritin Total Bilirubin Direct Bilirubin AST ALT Alkaline Phosphatase Lactate Dehydrogenase C-Reactive Protein Serum Total Protein 5.6 L Total Protein Albumin 2.2 L Ycdgy-4-Icastvfrk 0.5 H Abnorm Protein Band 1 1.4 H PEP Interpretation see below H Crossmatch 10/13/16 10/14/16 10/14/16 23:18 03:00 03:00 WBC RBC Hgb Hct MCV MCHC RDW Plt Count Seg Neuts % (Manual) Lymphocytes % (Manual) Nucleated RBC % Seg Neutrophils # Man Lymphocytes # (Manual) Haptoglobin PT INR Fibrinogen Lupus Anticoagulant see below H LA PTT Baseline 55 H POC ABG pH POC ABG pCO2 POC ABG pO2 Sodium Potassium Chloride Carbon Dioxide BUN Creatinine Glucose POC Glucose 113 H Lactic Acid Uric Acid Calcium Phosphorus Iron TIBC Erythropoietin Ferritin Total Bilirubin Direct Bilirubin AST ALT Alkaline Phosphatase Lactate Dehydrogenase 406 H C-Reactive Protein Serum Total Protein Total Protein Albumin Rwzps-7-Iadhsihmu Abnorm Protein Band 1 PEP Interpretation Crossmatch 10/14/16 10/14/16 10/14/16 03:00 03:00 04:34 WBC 1.3 L* RBC 2.33 L Hgb 7.3 L Hct 21.7 L MCV MCHC RDW 19.8 H Plt Count 99 L Seg Neuts % (Manual) Lymphocytes % (Manual) 3.0 L Nucleated RBC % Seg Neutrophils # Man 0.9 L Lymphocytes # (Manual) 0.0 L Haptoglobin PT INR Fibrinogen Lupus Anticoagulant LA PTT Baseline POC ABG pH POC ABG pCO2 POC ABG pO2 Sodium Potassium Chloride Carbon Dioxide 18 L BUN 73 H Creatinine 9.8 H Glucose 59 L POC Glucose Lactic Acid Uric Acid 8.0 H Calcium 8.2 L Phosphorus 6.60 H Iron 13 L TIBC 160 L Erythropoietin Ferritin Total Bilirubin Direct Bilirubin AST ALT Alkaline Phosphatase Lactate Dehydrogenase C-Reactive Protein Serum Total Protein Total Protein Albumin Zkjzz-7-Kjrzajpbs Abnorm Protein Band 1 PEP Interpretation Crossmatch 10/14/16 10/14/16 10/14/16 05:27 06:29 07:34 WBC RBC Hgb Hct MCV MCHC RDW Plt Count Seg Neuts % (Manual) Lymphocytes % (Manual) Nucleated RBC % Seg Neutrophils # Man Lymphocytes # (Manual) Haptoglobin PT INR Fibrinogen Lupus Anticoagulant LA PTT Baseline POC ABG pH POC ABG pCO2 POC ABG pO2 Sodium Potassium Chloride Carbon Dioxide BUN Creatinine Glucose POC Glucose < 40 L 63 L < 40 L Lactic Acid Uric Acid Calcium Phosphorus Iron TIBC Erythropoietin Ferritin Total Bilirubin Direct Bilirubin AST ALT Alkaline Phosphatase Lactate Dehydrogenase C-Reactive Protein Serum Total Protein Total Protein Albumin Bwmzi-4-Cqqrxtuzm Abnorm Protein Band 1 PEP Interpretation Crossmatch 10/14/16 10/14/16 10/14/16 09:58 09:58 09:58 WBC RBC Hgb Hct MCV MCHC RDW Plt Count Seg Neuts % (Manual) Lymphocytes % (Manual) Nucleated RBC % Seg Neutrophils # Man Lymphocytes # (Manual) Haptoglobin 218 H PT INR Fibrinogen 557 H Lupus Anticoagulant LA PTT Baseline POC ABG pH POC ABG pCO2 POC ABG pO2 Sodium Potassium Chloride Carbon Dioxide BUN Creatinine Glucose POC Glucose Lactic Acid Uric Acid Calcium Phosphorus Iron TIBC Erythropoietin Ferritin Total Bilirubin 1.30 H Direct Bilirubin 1.1 H AST ALT Alkaline Phosphatase Lactate Dehydrogenase C-Reactive Protein Serum Total Protein Total Protein Albumin Xmnkp-3-Rrybwqhwy Abnorm Protein Band 1 PEP Interpretation Crossmatch 10/14/16 10/14/16 10/14/16 10:57 11:15 12:52 WBC RBC Hgb Hct MCV MCHC RDW Plt Count Seg Neuts % (Manual) Lymphocytes % (Manual) Nucleated RBC % Seg Neutrophils # Man Lymphocytes # (Manual) Haptoglobin PT INR Fibrinogen Lupus Anticoagulant LA PTT Baseline POC ABG pH POC ABG pCO2 POC ABG pO2 Sodium Potassium Chloride Carbon Dioxide BUN Creatinine Glucose POC Glucose < 40 L < 40 L Lactic Acid 9.60 H* Uric Acid Calcium Phosphorus Iron TIBC Erythropoietin Ferritin Total Bilirubin Direct Bilirubin AST ALT Alkaline Phosphatase Lactate Dehydrogenase C-Reactive Protein Serum Total Protein Total Protein Albumin Ymfwy-5-Sttjuxlyu Abnorm Protein Band 1 PEP Interpretation Crossmatch 10/14/16 10/14/16 10/14/16 12:52 13:17 14:12 WBC RBC Hgb Hct MCV MCHC RDW Plt Count Seg Neuts % (Manual) Lymphocytes % (Manual) Nucleated RBC % Seg Neutrophils # Man Lymphocytes # (Manual) Haptoglobin PT INR Fibrinogen Lupus Anticoagulant LA PTT Baseline POC ABG pH POC ABG pCO2 POC ABG pO2 Sodium Potassium Chloride Carbon Dioxide BUN Creatinine Glucose POC Glucose < 40 L < 40 L Lactic Acid Uric Acid Calcium Phosphorus Iron TIBC Erythropoietin Ferritin Total Bilirubin Direct Bilirubin AST ALT Alkaline Phosphatase Lactate Dehydrogenase C-Reactive Protein 40.40 H Serum Total Protein Total Protein Albumin Ycbmv-4-Gviyffawe Abnorm Protein Band 1 PEP Interpretation Crossmatch 10/14/16 10/14/16 10/14/16 15:02 15:33 15:33 WBC RBC Hgb Hct MCV MCHC RDW Plt Count Seg Neuts % (Manual) Lymphocytes % (Manual) Nucleated RBC % Seg Neutrophils # Man Lymphocytes # (Manual) Haptoglobin PT INR Fibrinogen Lupus Anticoagulant LA PTT Baseline POC ABG pH POC ABG pCO2 POC ABG pO2 Sodium Potassium Chloride Carbon Dioxide BUN Creatinine Glucose 19 L* POC Glucose < 40 L Lactic Acid 11.60 H* Uric Acid Calcium Phosphorus Iron TIBC Erythropoietin Ferritin Total Bilirubin Direct Bilirubin AST ALT Alkaline Phosphatase Lactate Dehydrogenase C-Reactive Protein Serum Total Protein Total Protein Albumin Vwabl-1-Oybfkjuwn Abnorm Protein Band 1 PEP Interpretation Crossmatch 10/14/16 10/14/16 10/14/16 17:14 18:03 21:25 WBC RBC Hgb Hct MCV MCHC RDW Plt Count Seg Neuts % (Manual) Lymphocytes % (Manual) Nucleated RBC % Seg Neutrophils # Man Lymphocytes # (Manual) Haptoglobin PT 28.9 H INR 2.71 H Fibrinogen Lupus Anticoagulant LA PTT Baseline POC ABG pH POC ABG pCO2 POC ABG pO2 Sodium Potassium Chloride Carbon Dioxide BUN Creatinine Glucose POC Glucose < 40 L 57 L Lactic Acid Uric Acid Calcium Phosphorus Iron TIBC Erythropoietin Ferritin Total Bilirubin Direct Bilirubin AST ALT Alkaline Phosphatase Lactate Dehydrogenase C-Reactive Protein Serum Total Protein Total Protein Albumin Sqqfs-5-Jgajmtsmr Abnorm Protein Band 1 PEP Interpretation Crossmatch 10/15/16 10/15/16 10/15/16 05:32 05:35 05:35 WBC RBC 2.62 L Hgb 8.1 L Hct 25.8 L MCV 98 H D MCHC 31 L RDW 21.2 H Plt Count 61 L Seg Neuts % (Manual) 27.0 L Lymphocytes % (Manual) 10.0 L Nucleated RBC % 2.0 H Seg Neutrophils # Man Lymphocytes # (Manual) 0.8 L Haptoglobin PT INR Fibrinogen Lupus Anticoagulant LA PTT Baseline POC ABG pH POC ABG pCO2 POC ABG pO2 Sodium Potassium Chloride Carbon Dioxide BUN Creatinine Glucose POC Glucose < 40 L Lactic Acid Uric Acid Calcium Phosphorus Iron TIBC Erythropoietin Ferritin Total Bilirubin Direct Bilirubin AST ALT Alkaline Phosphatase Lactate Dehydrogenase 3871 H C-Reactive Protein Serum Total Protein Total Protein Albumin Hrxtg-1-Xsfzkpbhj Abnorm Protein Band 1 PEP Interpretation Crossmatch 10/15/16 10/15/16 10/15/16 05:35 05:35 05:35 WBC RBC Hgb Hct MCV MCHC RDW Plt Count Seg Neuts % (Manual) Lymphocytes % (Manual) Nucleated RBC % Seg Neutrophils # Man Lymphocytes # (Manual) Haptoglobin PT INR Fibrinogen Lupus Anticoagulant LA PTT Baseline POC ABG pH POC ABG pCO2 POC ABG pO2 Sodium 136 L Potassium 5.3 H D Chloride 91.4 L Carbon Dioxide 6 L* D BUN 57 H Creatinine 7.1 H Glucose 11 L* POC Glucose Lactic Acid 13.60 H* Uric Acid Calcium 7.7 L Phosphorus 10.10 H D Iron TIBC 166 L Erythropoietin Ferritin 9562.0 H Total Bilirubin Direct Bilirubin AST ALT Alkaline Phosphatase Lactate Dehydrogenase C-Reactive Protein Serum Total Protein Total Protein Albumin Jxoie-8-Hhbqktwuj Abnorm Protein Band 1 PEP Interpretation Crossmatch 10/15/16 10/15/16 10/15/16 05:51 06:22 06:52 WBC RBC Hgb Hct MCV MCHC RDW Plt Count Seg Neuts % (Manual) Lymphocytes % (Manual) Nucleated RBC % Seg Neutrophils # Man Lymphocytes # (Manual) Haptoglobin PT INR Fibrinogen Lupus Anticoagulant LA PTT Baseline POC ABG pH 7.189 L POC ABG pCO2 28.9 L POC ABG pO2 Sodium Potassium Chloride Carbon Dioxide BUN Creatinine Glucose POC Glucose 59 L 111 H Lactic Acid Uric Acid Calcium Phosphorus Iron TIBC Erythropoietin Ferritin Total Bilirubin Direct Bilirubin AST ALT Alkaline Phosphatase Lactate Dehydrogenase C-Reactive Protein Serum Total Protein Total Protein Albumin Iwojy-8-Pvnmbwoln Abnorm Protein Band 1 PEP Interpretation Crossmatch 10/15/16 10/15/16 10/15/16 08:00 09:57 11:42 WBC RBC Hgb Hct MCV MCHC RDW Plt Count Seg Neuts % (Manual) Lymphocytes % (Manual) Nucleated RBC % Seg Neutrophils # Man Lymphocytes # (Manual) Haptoglobin PT INR Fibrinogen Lupus Anticoagulant LA PTT Baseline POC ABG pH POC ABG pCO2 POC ABG pO2 Sodium Potassium Chloride Carbon Dioxide BUN Creatinine Glucose POC Glucose 63 L 143 H 203 H Lactic Acid Uric Acid Calcium Phosphorus Iron TIBC Erythropoietin Ferritin Total Bilirubin Direct Bilirubin AST ALT Alkaline Phosphatase Lactate Dehydrogenase C-Reactive Protein Serum Total Protein Total Protein Albumin Uotqj-9-Mrzbsvbyo Abnorm Protein Band 1 PEP Interpretation Crossmatch 10/15/16 10/15/16 10/15/16 12:00 12:00 13:00 WBC RBC Hgb Hct MCV MCHC RDW Plt Count Seg Neuts % (Manual) Lymphocytes % (Manual) Nucleated RBC % Seg Neutrophils # Man Lymphocytes # (Manual) Haptoglobin <15 L PT INR Fibrinogen Lupus Anticoagulant LA PTT Baseline POC ABG pH POC ABG pCO2 POC ABG pO2 Sodium Potassium Chloride Carbon Dioxide BUN Creatinine Glucose POC Glucose 136 H Lactic Acid 16.30 H* Uric Acid Calcium Phosphorus Iron TIBC Erythropoietin Ferritin Total Bilirubin Direct Bilirubin AST ALT Alkaline Phosphatase Lactate Dehydrogenase C-Reactive Protein Serum Total Protein Total Protein Albumin Qwtcs-4-Qwsthkvwr Abnorm Protein Band 1 PEP Interpretation Crossmatch 10/15/16 10/15/16 10/15/16 14:06 15:15 16:23 WBC RBC Hgb Hct MCV MCHC RDW Plt Count Seg Neuts % (Manual) Lymphocytes % (Manual) Nucleated RBC % Seg Neutrophils # Man Lymphocytes # (Manual) Haptoglobin PT INR Fibrinogen Lupus Anticoagulant LA PTT Baseline POC ABG pH POC ABG pCO2 POC ABG pO2 Sodium Potassium Chloride Carbon Dioxide BUN Creatinine Glucose POC Glucose 132 H 64 L Lactic Acid 20.40 H* Uric Acid Calcium Phosphorus Iron TIBC Erythropoietin Ferritin Total Bilirubin Direct Bilirubin AST ALT Alkaline Phosphatase Lactate Dehydrogenase C-Reactive Protein Serum Total Protein Total Protein Albumin Tdsot-9-Ararkkmlb Abnorm Protein Band 1 PEP Interpretation Crossmatch 10/15/16 10/15/16 10/15/16 16:40 17:00 17:10 WBC RBC Hgb Hct MCV MCHC RDW Plt Count Seg Neuts % (Manual) Lymphocytes % (Manual) Nucleated RBC % Seg Neutrophils # Man Lymphocytes # (Manual) Haptoglobin PT INR Fibrinogen Lupus Anticoagulant LA PTT Baseline POC ABG pH 7.323 L POC ABG pCO2 25.8 L POC ABG pO2 135 H Sodium Potassium Chloride Carbon Dioxide BUN Creatinine Glucose POC Glucose 159 H Lactic Acid 20.20 H* Uric Acid Calcium Phosphorus Iron TIBC Erythropoietin Ferritin Total Bilirubin Direct Bilirubin AST ALT Alkaline Phosphatase Lactate Dehydrogenase C-Reactive Protein Serum Total Protein Total Protein Albumin Wrglv-5-Ouwansgzj Abnorm Protein Band 1 PEP Interpretation Crossmatch 10/15/16 10/15/16 10/15/16 17:46 17:53 18:45 WBC RBC Hgb Hct MCV MCHC RDW Plt Count Seg Neuts % (Manual) Lymphocytes % (Manual) Nucleated RBC % Seg Neutrophils # Man Lymphocytes # (Manual) Haptoglobin PT INR Fibrinogen Lupus Anticoagulant LA PTT Baseline POC ABG pH POC ABG pCO2 POC ABG pO2 Sodium Potassium Chloride Carbon Dioxide BUN Creatinine Glucose POC Glucose 126 H 143 H Lactic Acid 21.40 H* Uric Acid Calcium Phosphorus Iron TIBC Erythropoietin Ferritin Total Bilirubin Direct Bilirubin AST ALT Alkaline Phosphatase Lactate Dehydrogenase C-Reactive Protein Serum Total Protein Total Protein Albumin Rgpoz-0-Pylklipys Abnorm Protein Band 1 PEP Interpretation Crossmatch 10/15/16 10/15/16 10/16/16 20:03 22:59 00:06 WBC RBC Hgb Hct MCV MCHC RDW Plt Count Seg Neuts % (Manual) Lymphocytes % (Manual) Nucleated RBC % Seg Neutrophils # Man Lymphocytes # (Manual) Haptoglobin PT INR Fibrinogen Lupus Anticoagulant LA PTT Baseline POC ABG pH POC ABG pCO2 POC ABG pO2 Sodium Potassium Chloride Carbon Dioxide BUN Creatinine Glucose POC Glucose 66 L 53 L 126 H Lactic Acid Uric Acid Calcium Phosphorus Iron TIBC Erythropoietin Ferritin Total Bilirubin Direct Bilirubin AST ALT Alkaline Phosphatase Lactate Dehydrogenase C-Reactive Protein Serum Total Protein Total Protein Albumin Kpwpp-6-Mzjiubidt Abnorm Protein Band 1 PEP Interpretation Crossmatch 10/16/16 10/16/16 10/16/16 01:03 03:55 04:00 WBC RBC Hgb Hct MCV MCHC RDW Plt Count Seg Neuts % (Manual) Lymphocytes % (Manual) Nucleated RBC % Seg Neutrophils # Man Lymphocytes # (Manual) Haptoglobin PT INR Fibrinogen Lupus Anticoagulant LA PTT Baseline POC ABG pH POC ABG pCO2 POC ABG pO2 Sodium Potassium Chloride Carbon Dioxide BUN Creatinine Glucose POC Glucose 107 H 260 H Lactic Acid 18.00 H* Uric Acid Calcium Phosphorus Iron TIBC Erythropoietin Ferritin Total Bilirubin Direct Bilirubin AST ALT Alkaline Phosphatase Lactate Dehydrogenase C-Reactive Protein Serum Total Protein Total Protein Albumin Mokyv-8-Iadvgpzec Abnorm Protein Band 1 PEP Interpretation Crossmatch 10/16/16 10/16/16 10/16/16 04:03 07:58 08:34 WBC RBC Hgb Hct MCV MCHC RDW Plt Count Seg Neuts % (Manual) Lymphocytes % (Manual) Nucleated RBC % Seg Neutrophils # Man Lymphocytes # (Manual) Haptoglobin PT INR Fibrinogen Lupus Anticoagulant LA PTT Baseline POC ABG pH 7.527 H POC ABG pCO2 32.9 L POC ABG pO2 119 H Sodium Potassium Chloride Carbon Dioxide BUN Creatinine Glucose POC Glucose 120 H 66 L Lactic Acid Uric Acid Calcium Phosphorus Iron TIBC Erythropoietin Ferritin Total Bilirubin Direct Bilirubin AST ALT Alkaline Phosphatase Lactate Dehydrogenase C-Reactive Protein Serum Total Protein Total Protein Albumin Wziwv-3-Krawqufmv Abnorm Protein Band 1 PEP Interpretation Crossmatch 10/16/16 10/16/16 10/16/16 09:13 10:06 10:57 WBC RBC Hgb Hct MCV MCHC RDW Plt Count Seg Neuts % (Manual) Lymphocytes % (Manual) Nucleated RBC % Seg Neutrophils # Man Lymphocytes # (Manual) Haptoglobin PT INR Fibrinogen Lupus Anticoagulant LA PTT Baseline POC ABG pH POC ABG pCO2 POC ABG pO2 Sodium Potassium Chloride Carbon Dioxide BUN Creatinine Glucose POC Glucose 147 H 137 H 140 H Lactic Acid Uric Acid Calcium Phosphorus Iron TIBC Erythropoietin Ferritin Total Bilirubin Direct Bilirubin AST ALT Alkaline Phosphatase Lactate Dehydrogenase C-Reactive Protein Serum Total Protein Total Protein Albumin Ilitt-9-Ewsyxygij Abnorm Protein Band 1 PEP Interpretation Crossmatch 10/16/16 10/16/16 10/16/16 11:15 11:15 11:15 WBC 25.8 H RBC 2.30 L Hgb 7.0 L Hct 22.3 L MCV 97 H MCHC 31 L RDW 21.2 H Plt Count 42 L Seg Neuts % (Manual) Lymphocytes % (Manual) 3.0 L Nucleated RBC % 2.0 H Seg Neutrophils # Man 11.1 H Lymphocytes # (Manual) 0.8 L Haptoglobin PT INR Fibrinogen Lupus Anticoagulant LA PTT Baseline POC ABG pH POC ABG pCO2 POC ABG pO2 Sodium Potassium Chloride 81.7 L Carbon Dioxide 13 L D BUN 61 H Creatinine 6.2 H Glucose 171 H POC Glucose Lactic Acid 22.70 H* Uric Acid Calcium 7.1 L Phosphorus 9.10 H Iron TIBC Erythropoietin Ferritin Total Bilirubin Direct Bilirubin AST ALT Alkaline Phosphatase Lactate Dehydrogenase C-Reactive Protein Serum Total Protein Total Protein Albumin Riwek-1-Hxrobmiqf Abnorm Protein Band 1 PEP Interpretation Crossmatch 10/16/16 10/16/16 10/16/16 15:10 15:50 18:11 WBC RBC Hgb Hct MCV MCHC RDW Plt Count Seg Neuts % (Manual) Lymphocytes % (Manual) Nucleated RBC % Seg Neutrophils # Man Lymphocytes # (Manual) Haptoglobin PT INR Fibrinogen Lupus Anticoagulant LA PTT Baseline POC ABG pH POC ABG pCO2 POC ABG pO2 Sodium Potassium Chloride Carbon Dioxide BUN Creatinine Glucose POC Glucose 47 L 164 H 58 L Lactic Acid Uric Acid Calcium Phosphorus Iron TIBC Erythropoietin Ferritin Total Bilirubin Direct Bilirubin AST ALT Alkaline Phosphatase Lactate Dehydrogenase C-Reactive Protein Serum Total Protein Total Protein Albumin Entlx-7-Razqzduor Abnorm Protein Band 1 PEP Interpretation Crossmatch 10/16/16 10/16/16 10/17/16 18:26 21:06 00:06 WBC RBC Hgb Hct MCV MCHC RDW Plt Count Seg Neuts % (Manual) Lymphocytes % (Manual) Nucleated RBC % Seg Neutrophils # Man Lymphocytes # (Manual) Haptoglobin PT INR Fibrinogen Lupus Anticoagulant LA PTT Baseline POC ABG pH POC ABG pCO2 POC ABG pO2 489 H Sodium Potassium Chloride Carbon Dioxide BUN Creatinine Glucose POC Glucose 52 L 120 H Lactic Acid Uric Acid Calcium Phosphorus Iron TIBC Erythropoietin Ferritin Total Bilirubin Direct Bilirubin AST ALT Alkaline Phosphatase Lactate Dehydrogenase C-Reactive Protein Serum Total Protein Total Protein Albumin Wxwjb-3-Botycycdd Abnorm Protein Band 1 PEP Interpretation Crossmatch 10/17/16 10/17/16 10/17/16 04:55 04:55 05:04 WBC 25.5 H RBC 2.23 L Hgb 6.6 L Hct 21.2 L MCV 95 H MCHC 31 L RDW 20.5 H Plt Count 35 L Seg Neuts % (Manual) 79.0 H Lymphocytes % (Manual) 0 L Nucleated RBC % Seg Neutrophils # Man 20.1 H Lymphocytes # (Manual) 0.0 L Haptoglobin PT INR Fibrinogen Lupus Anticoagulant LA PTT Baseline POC ABG pH POC ABG pCO2 27.2 L POC ABG pO2 162 H Sodium Potassium Chloride 91.5 L Carbon Dioxide 16 L BUN 45 H Creatinine 4.5 H Glucose 103 H POC Glucose Lactic Acid Uric Acid Calcium 6.9 L Phosphorus 5.80 H D Iron TIBC Erythropoietin Ferritin Total Bilirubin Direct Bilirubin AST ALT Alkaline Phosphatase Lactate Dehydrogenase C-Reactive Protein Serum Total Protein Total Protein Albumin Hwhjj-0-Qhipmmven Abnorm Protein Band 1 PEP Interpretation Crossmatch 10/17/16 10/17/16 10/17/16 07:59 09:04 10:04 WBC RBC Hgb Hct MCV MCHC RDW Plt Count Seg Neuts % (Manual) Lymphocytes % (Manual) Nucleated RBC % Seg Neutrophils # Man Lymphocytes # (Manual) Haptoglobin PT INR Fibrinogen Lupus Anticoagulant LA PTT Baseline POC ABG pH POC ABG pCO2 POC ABG pO2 Sodium Potassium Chloride Carbon Dioxide BUN Creatinine Glucose POC Glucose 65 L 118 H Lactic Acid Uric Acid Calcium Phosphorus Iron TIBC Erythropoietin Ferritin Total Bilirubin Direct Bilirubin AST ALT Alkaline Phosphatase Lactate Dehydrogenase C-Reactive Protein Serum Total Protein Total Protein Albumin Tykhg-4-Epydgskeu Abnorm Protein Band 1 PEP Interpretation Crossmatch See Detail 10/17/16 10/17/16 10/17/16 11:52 13:08 15:42 WBC RBC Hgb Hct MCV MCHC RDW Plt Count Seg Neuts % (Manual) Lymphocytes % (Manual) Nucleated RBC % Seg Neutrophils # Man Lymphocytes # (Manual) Haptoglobin PT INR Fibrinogen Lupus Anticoagulant LA PTT Baseline POC ABG pH POC ABG pCO2 POC ABG pO2 Sodium Potassium Chloride Carbon Dioxide BUN Creatinine Glucose POC Glucose 125 H 106 H 55 L Lactic Acid Uric Acid Calcium Phosphorus Iron TIBC Erythropoietin Ferritin Total Bilirubin Direct Bilirubin AST ALT Alkaline Phosphatase Lactate Dehydrogenase C-Reactive Protein Serum Total Protein Total Protein Albumin Wteue-7-Uyfocwsxh Abnorm Protein Band 1 PEP Interpretation Crossmatch 10/17/16 10/17/16 10/17/16 17:39 20:37 21:02 WBC RBC Hgb Hct MCV MCHC RDW Plt Count Seg Neuts % (Manual) Lymphocytes % (Manual) Nucleated RBC % Seg Neutrophils # Man Lymphocytes # (Manual) Haptoglobin PT INR Fibrinogen Lupus Anticoagulant LA PTT Baseline POC ABG pH POC ABG pCO2 28.2 L POC ABG pO2 Sodium Potassium Chloride Carbon Dioxide BUN Creatinine Glucose POC Glucose < 40 L 106 H Lactic Acid Uric Acid Calcium Phosphorus Iron TIBC Erythropoietin Ferritin Total Bilirubin Direct Bilirubin AST ALT Alkaline Phosphatase Lactate Dehydrogenase C-Reactive Protein Serum Total Protein Total Protein Albumin Mnjsy-5-Mfhgkydod Abnorm Protein Band 1 PEP Interpretation Crossmatch 10/17/16 10/17/16 10/18/16 22:18 23:14 00:28 WBC RBC Hgb Hct MCV MCHC RDW Plt Count Seg Neuts % (Manual) Lymphocytes % (Manual) Nucleated RBC % Seg Neutrophils # Man Lymphocytes # (Manual) Haptoglobin PT INR Fibrinogen Lupus Anticoagulant LA PTT Baseline POC ABG pH POC ABG pCO2 POC ABG pO2 Sodium Potassium Chloride Carbon Dioxide BUN Creatinine Glucose POC Glucose 111 H 118 H 112 H Lactic Acid Uric Acid Calcium Phosphorus Iron TIBC Erythropoietin Ferritin Total Bilirubin Direct Bilirubin AST ALT Alkaline Phosphatase Lactate Dehydrogenase C-Reactive Protein Serum Total Protein Total Protein Albumin Fipyq-6-Tjmyjgavf Abnorm Protein Band 1 PEP Interpretation Crossmatch 10/18/16 10/18/16 10/18/16 05:00 05:00 05:15 WBC 27.3 H RBC 2.75 L Hgb 7.9 L Hct 25.3 L MCV MCHC 31 L RDW 20.7 H Plt Count 31 L Seg Neuts % (Manual) 87.0 H Lymphocytes % (Manual) 1.0 L Nucleated RBC % 1.0 H Seg Neutrophils # Man 23.8 H Lymphocytes # (Manual) 0.3 L Haptoglobin PT INR Fibrinogen Lupus Anticoagulant LA PTT Baseline POC ABG pH 7.466 H POC ABG pCO2 25.1 L POC ABG pO2 Sodium Potassium Chloride 88.7 L Carbon Dioxide 18 L BUN 66 H Creatinine 4.7 H Glucose POC Glucose Lactic Acid Uric Acid Calcium 6.1 L Phosphorus 7.30 H D Iron TIBC Erythropoietin Ferritin Total Bilirubin Direct Bilirubin AST ALT Alkaline Phosphatase Lactate Dehydrogenase C-Reactive Protein Serum Total Protein Total Protein Albumin Bwezd-3-Deafvubww Abnorm Protein Band 1 PEP Interpretation Crossmatch 10/18/16 10/18/16 10/18/16 07:15 07:44 09:07 WBC RBC Hgb Hct MCV MCHC RDW Plt Count Seg Neuts % (Manual) Lymphocytes % (Manual) Nucleated RBC % Seg Neutrophils # Man Lymphocytes # (Manual) Haptoglobin PT INR Fibrinogen Lupus Anticoagulant LA PTT Baseline POC ABG pH POC ABG pCO2 POC ABG pO2 Sodium Potassium Chloride Carbon Dioxide BUN Creatinine Glucose POC Glucose 64 L 156 H 117 H Lactic Acid Uric Acid Calcium Phosphorus Iron TIBC Erythropoietin Ferritin Total Bilirubin Direct Bilirubin AST ALT Alkaline Phosphatase Lactate Dehydrogenase C-Reactive Protein Serum Total Protein Total Protein Albumin Lkdoj-6-Ibvzefqlq Abnorm Protein Band 1 PEP Interpretation Crossmatch 10/18/16 10/18/16 10/18/16 09:15 14:00 18:21 WBC RBC Hgb Hct MCV MCHC RDW Plt Count Seg Neuts % (Manual) Lymphocytes % (Manual) Nucleated RBC % Seg Neutrophils # Man Lymphocytes # (Manual) Haptoglobin PT INR Fibrinogen Lupus Anticoagulant LA PTT Baseline POC ABG pH POC ABG pCO2 POC ABG pO2 Sodium Potassium Chloride Carbon Dioxide BUN Creatinine Glucose POC Glucose 106 H 112 H Lactic Acid 14.30 H* Uric Acid Calcium Phosphorus Iron TIBC Erythropoietin Ferritin Total Bilirubin Direct Bilirubin AST ALT Alkaline Phosphatase Lactate Dehydrogenase C-Reactive Protein Serum Total Protein Total Protein Albumin Xqbcs-8-Iiibiopre Abnorm Protein Band 1 PEP Interpretation Crossmatch 10/18/16 10/18/16 10/18/16 19:58 20:55 22:11 WBC RBC Hgb Hct MCV MCHC RDW Plt Count Seg Neuts % (Manual) Lymphocytes % (Manual) Nucleated RBC % Seg Neutrophils # Man Lymphocytes # (Manual) Haptoglobin PT INR Fibrinogen Lupus Anticoagulant LA PTT Baseline POC ABG pH POC ABG pCO2 POC ABG pO2 Sodium Potassium Chloride Carbon Dioxide BUN Creatinine Glucose POC Glucose 127 H 125 H 159 H Lactic Acid Uric Acid Calcium Phosphorus Iron TIBC Erythropoietin Ferritin Total Bilirubin Direct Bilirubin AST ALT Alkaline Phosphatase Lactate Dehydrogenase C-Reactive Protein Serum Total Protein Total Protein Albumin Easms-4-Xkekmkugy Abnorm Protein Band 1 PEP Interpretation Crossmatch 10/18/16 10/18/16 10/19/16 23:11 23:57 01:06 WBC RBC Hgb Hct MCV MCHC RDW Plt Count Seg Neuts % (Manual) Lymphocytes % (Manual) Nucleated RBC % Seg Neutrophils # Man Lymphocytes # (Manual) Haptoglobin PT INR Fibrinogen Lupus Anticoagulant LA PTT Baseline POC ABG pH POC ABG pCO2 POC ABG pO2 Sodium Potassium Chloride Carbon Dioxide BUN Creatinine Glucose POC Glucose 122 H 137 H 162 H Lactic Acid Uric Acid Calcium Phosphorus Iron TIBC Erythropoietin Ferritin Total Bilirubin Direct Bilirubin AST ALT Alkaline Phosphatase Lactate Dehydrogenase C-Reactive Protein Serum Total Protein Total Protein Albumin Izfiw-2-Mwzqmqzuu Abnorm Protein Band 1 PEP Interpretation Crossmatch 10/19/16 10/19/16 10/19/16 01:59 03:07 04:10 WBC RBC Hgb Hct MCV MCHC RDW Plt Count Seg Neuts % (Manual) Lymphocytes % (Manual) Nucleated RBC % Seg Neutrophils # Man Lymphocytes # (Manual) Haptoglobin PT INR Fibrinogen Lupus Anticoagulant LA PTT Baseline POC ABG pH POC ABG pCO2 POC ABG pO2 Sodium Potassium Chloride Carbon Dioxide BUN Creatinine Glucose POC Glucose 154 H 178 H 186 H Lactic Acid Uric Acid Calcium Phosphorus Iron TIBC Erythropoietin Ferritin Total Bilirubin Direct Bilirubin AST ALT Alkaline Phosphatase Lactate Dehydrogenase C-Reactive Protein Serum Total Protein Total Protein Albumin Ffqjt-1-Amzqxcfmq Abnorm Protein Band 1 PEP Interpretation Crossmatch 10/19/16 10/19/16 10/19/16 05:14 05:15 05:47 WBC RBC Hgb Hct MCV MCHC RDW Plt Count Seg Neuts % (Manual) Lymphocytes % (Manual) Nucleated RBC % Seg Neutrophils # Man Lymphocytes # (Manual) Haptoglobin PT INR Fibrinogen Lupus Anticoagulant LA PTT Baseline POC ABG pH 7.581 H POC ABG pCO2 22.9 L POC ABG pO2 58 L Sodium Potassium Chloride Carbon Dioxide BUN Creatinine Glucose POC Glucose 197 H 204 H Lactic Acid Uric Acid Calcium Phosphorus Iron TIBC Erythropoietin Ferritin Total Bilirubin Direct Bilirubin AST ALT Alkaline Phosphatase Lactate Dehydrogenase C-Reactive Protein Serum Total Protein Total Protein Albumin Fqvds-4-Ljfuguozl Abnorm Protein Band 1 PEP Interpretation Crossmatch 10/19/16 10/19/16 10/19/16 06:00 06:00 07:51 WBC 23.0 H RBC 2.54 L Hgb 7.5 L Hct 23.0 L MCV MCHC RDW 20.7 H Plt Count 25 L Seg Neuts % (Manual) 91.0 H Lymphocytes % (Manual) 2.0 L Nucleated RBC % 1.0 H Seg Neutrophils # Man 20.9 H Lymphocytes # (Manual) 0.5 L Haptoglobin PT INR Fibrinogen Lupus Anticoagulant LA PTT Baseline POC ABG pH POC ABG pCO2 POC ABG pO2 Sodium Potassium Chloride 88.7 L Carbon Dioxide 21 L BUN 70 H Creatinine 3.9 H Glucose 189 H POC Glucose 145 H Lactic Acid Uric Acid Calcium 5.6 L* Phosphorus 6.30 H Iron TIBC Erythropoietin Ferritin Total Bilirubin Direct Bilirubin AST ALT Alkaline Phosphatase Lactate Dehydrogenase C-Reactive Protein Serum Total Protein Total Protein Albumin Ddaii-3-Llhhbltum Abnorm Protein Band 1 PEP Interpretation Crossmatch 10/19/16 10/19/16 10/19/16 09:14 10:01 12:14 WBC RBC Hgb Hct MCV MCHC RDW Plt Count Seg Neuts % (Manual) Lymphocytes % (Manual) Nucleated RBC % Seg Neutrophils # Man Lymphocytes # (Manual) Haptoglobin PT INR Fibrinogen Lupus Anticoagulant LA PTT Baseline POC ABG pH POC ABG pCO2 POC ABG pO2 Sodium Potassium Chloride Carbon Dioxide BUN Creatinine Glucose POC Glucose 173 H 153 H 180 H Lactic Acid Uric Acid Calcium Phosphorus Iron TIBC Erythropoietin Ferritin Total Bilirubin Direct Bilirubin AST ALT Alkaline Phosphatase Lactate Dehydrogenase C-Reactive Protein Serum Total Protein Total Protein Albumin Bmvxx-4-Rtvfhjonr Abnorm Protein Band 1 PEP Interpretation Crossmatch 10/19/16 10/19/16 10/19/16 14:15 16:38 20:27 WBC RBC Hgb Hct MCV MCHC RDW Plt Count Seg Neuts % (Manual) Lymphocytes % (Manual) Nucleated RBC % Seg Neutrophils # Man Lymphocytes # (Manual) Haptoglobin PT INR Fibrinogen Lupus Anticoagulant LA PTT Baseline POC ABG pH POC ABG pCO2 POC ABG pO2 Sodium Potassium Chloride Carbon Dioxide BUN Creatinine Glucose POC Glucose 194 H 202 H Lactic Acid Uric Acid Calcium Phosphorus Iron TIBC Erythropoietin 148.2 H Ferritin Total Bilirubin Direct Bilirubin AST ALT Alkaline Phosphatase Lactate Dehydrogenase C-Reactive Protein Serum Total Protein Total Protein Albumin Klfmr-7-Fztdnxvur Abnorm Protein Band 1 PEP Interpretation Crossmatch 10/19/16 10/20/16 10/20/16 23:27 04:06 05:00 WBC RBC Hgb Hct MCV MCHC RDW Plt Count Seg Neuts % (Manual) Lymphocytes % (Manual) Nucleated RBC % Seg Neutrophils # Man Lymphocytes # (Manual) Haptoglobin PT INR Fibrinogen Lupus Anticoagulant LA PTT Baseline POC ABG pH POC ABG pCO2 POC ABG pO2 Sodium Potassium Chloride 88.8 L Carbon Dioxide BUN 93 H Creatinine 4.3 H Glucose 204 H POC Glucose 201 H 200 H Lactic Acid Uric Acid Calcium 5.2 L* Phosphorus Iron TIBC Erythropoietin Ferritin Total Bilirubin Direct Bilirubin AST ALT Alkaline Phosphatase Lactate Dehydrogenase C-Reactive Protein Serum Total Protein Total Protein Albumin Idudt-5-Gvytkzlzy Abnorm Protein Band 1 PEP Interpretation Crossmatch 10/20/16 10/20/16 10/20/16 05:16 06:00 07:43 WBC 24.8 H RBC 2.52 L Hgb 7.4 L Hct 22.9 L MCV MCHC RDW 19.9 H Plt Count 23 L Seg Neuts % (Manual) 97.0 H Lymphocytes % (Manual) 1.0 L Nucleated RBC % 9.0 H Seg Neutrophils # Man 24.1 H Lymphocytes # (Manual) 0.2 L Haptoglobin PT INR Fibrinogen Lupus Anticoagulant LA PTT Baseline POC ABG pH 7.463 H POC ABG pCO2 POC ABG pO2 157 H Sodium Potassium Chloride Carbon Dioxide BUN Creatinine Glucose POC Glucose 192 H Lactic Acid Uric Acid Calcium Phosphorus Iron TIBC Erythropoietin Ferritin Total Bilirubin Direct Bilirubin AST ALT Alkaline Phosphatase Lactate Dehydrogenase C-Reactive Protein Serum Total Protein Total Protein Albumin Rfldy-4-Nnmhehbro Abnorm Protein Band 1 PEP Interpretation Crossmatch 10/20/16 10/20/16 10/20/16 12:11 15:32 21:23 WBC RBC Hgb Hct MCV MCHC RDW Plt Count Seg Neuts % (Manual) Lymphocytes % (Manual) Nucleated RBC % Seg Neutrophils # Man Lymphocytes # (Manual) Haptoglobin PT INR Fibrinogen Lupus Anticoagulant LA PTT Baseline POC ABG pH POC ABG pCO2 POC ABG pO2 Sodium Potassium Chloride Carbon Dioxide BUN Creatinine Glucose POC Glucose 172 H 216 H 271 H Lactic Acid Uric Acid Calcium Phosphorus Iron TIBC Erythropoietin Ferritin Total Bilirubin Direct Bilirubin AST ALT Alkaline Phosphatase Lactate Dehydrogenase C-Reactive Protein Serum Total Protein Total Protein Albumin Paawz-5-Gzkofjmzu Abnorm Protein Band 1 PEP Interpretation Crossmatch 10/20/16 10/21/16 10/21/16 23:49 03:53 04:58 WBC RBC Hgb Hct MCV MCHC RDW Plt Count Seg Neuts % (Manual) Lymphocytes % (Manual) Nucleated RBC % Seg Neutrophils # Man Lymphocytes # (Manual) Haptoglobin PT INR Fibrinogen Lupus Anticoagulant LA PTT Baseline POC ABG pH 7.459 H POC ABG pCO2 POC ABG pO2 113 H Sodium 136 L Potassium 2.8 L* D Chloride 91.6 L Carbon Dioxide BUN 62 H Creatinine 2.8 H Glucose 236 H POC Glucose 317 H Lactic Acid Uric Acid Calcium 6.2 L D Phosphorus Iron TIBC Erythropoietin Ferritin Total Bilirubin 2.70 H Direct Bilirubin AST 73 H ALT 57 H Alkaline Phosphatase 158 H Lactate Dehydrogenase C-Reactive Protein Serum Total Protein Total Protein 4.9 L Albumin 2.6 L Dlkgs-3-Ditmtiuwr Abnorm Protein Band 1 PEP Interpretation Crossmatch 10/21/16 10/21/16 10/21/16 05:25 07:11 10:30 WBC 28.1 H RBC 2.36 L Hgb 7.0 L Hct 21.6 L MCV MCHC RDW 20.0 H Plt Count 14 L* Seg Neuts % (Manual) 92.0 H Lymphocytes % (Manual) 0 L Nucleated RBC % 5.0 H Seg Neutrophils # Man 25.9 H Lymphocytes # (Manual) 0.0 L Haptoglobin PT INR Fibrinogen Lupus Anticoagulant LA PTT Baseline POC ABG pH POC ABG pCO2 POC ABG pO2 Sodium Potassium Chloride Carbon Dioxide BUN Creatinine Glucose POC Glucose 237 H 206 H Lactic Acid Uric Acid Calcium Phosphorus Iron TIBC Erythropoietin Ferritin Total Bilirubin Direct Bilirubin AST ALT Alkaline Phosphatase Lactate Dehydrogenase C-Reactive Protein Serum Total Protein Total Protein Albumin Gjrlz-5-Rzqwjfzph Abnorm Protein Band 1 PEP Interpretation Crossmatch 10/21/16 10/21/16 10/21/16 11:25 12:31 16:33 WBC RBC Hgb Hct MCV MCHC RDW Plt Count Seg Neuts % (Manual) Lymphocytes % (Manual) Nucleated RBC % Seg Neutrophils # Man Lymphocytes # (Manual) Haptoglobin PT 49.1 H INR 5.28 H* Fibrinogen Lupus Anticoagulant LA PTT Baseline POC ABG pH POC ABG pCO2 POC ABG pO2 Sodium Potassium Chloride Carbon Dioxide BUN Creatinine Glucose POC Glucose 145 H 151 H Lactic Acid Uric Acid Calcium Phosphorus Iron TIBC Erythropoietin Ferritin Total Bilirubin Direct Bilirubin AST ALT Alkaline Phosphatase Lactate Dehydrogenase C-Reactive Protein Serum Total Protein Total Protein Albumin Odbzv-6-Cvqhelvrb Abnorm Protein Band 1 PEP Interpretation Crossmatch 10/21/16 10/22/16 10/22/16 19:53 00:00 05:23 WBC RBC Hgb Hct MCV MCHC RDW Plt Count Seg Neuts % (Manual) Lymphocytes % (Manual) Nucleated RBC % Seg Neutrophils # Man Lymphocytes # (Manual) Haptoglobin PT INR Fibrinogen Lupus Anticoagulant LA PTT Baseline POC ABG pH POC ABG pCO2 POC ABG pO2 Sodium Potassium Chloride Carbon Dioxide BUN Creatinine Glucose POC Glucose 170 H 168 H 131 H Lactic Acid Uric Acid Calcium Phosphorus Iron TIBC Erythropoietin Ferritin Total Bilirubin Direct Bilirubin AST ALT Alkaline Phosphatase Lactate Dehydrogenase C-Reactive Protein Serum Total Protein Total Protein Albumin Cwfjm-2-Fdhdbjscl Abnorm Protein Band 1 PEP Interpretation Crossmatch 10/22/16 10/22/16 10/22/16 05:25 05:35 13:03 WBC RBC Hgb Hct MCV MCHC RDW Plt Count Seg Neuts % (Manual) Lymphocytes % (Manual) Nucleated RBC % Seg Neutrophils # Man Lymphocytes # (Manual) Haptoglobin PT INR Fibrinogen Lupus Anticoagulant LA PTT Baseline POC ABG pH 7.462 H POC ABG pCO2 POC ABG pO2 Sodium 135 L Potassium 3.0 L Chloride 88.5 L Carbon Dioxide BUN 84 H Creatinine 3.4 H Glucose 124 H POC Glucose 164 H Lactic Acid Uric Acid Calcium 5.9 L* Phosphorus Iron TIBC Erythropoietin Ferritin Total Bilirubin 2.00 H Direct Bilirubin AST 85 H ALT Alkaline Phosphatase 199 H Lactate Dehydrogenase C-Reactive Protein Serum Total Protein Total Protein 5.0 L Albumin 2.5 L Msogp-8-Nvrbifxxa Abnorm Protein Band 1 PEP Interpretation Crossmatch 10/22/16 10/22/16 10/23/16 17:14 23:16 04:47 WBC RBC Hgb Hct MCV MCHC RDW Plt Count Seg Neuts % (Manual) Lymphocytes % (Manual) Nucleated RBC % Seg Neutrophils # Man Lymphocytes # (Manual) Haptoglobin PT INR Fibrinogen Lupus Anticoagulant LA PTT Baseline POC ABG pH 7.476 H POC ABG pCO2 POC ABG pO2 108 H Sodium Potassium Chloride Carbon Dioxide BUN Creatinine Glucose POC Glucose 188 H 167 H Lactic Acid Uric Acid Calcium Phosphorus Iron TIBC Erythropoietin Ferritin Total Bilirubin Direct Bilirubin AST ALT Alkaline Phosphatase Lactate Dehydrogenase C-Reactive Protein Serum Total Protein Total Protein Albumin Vdrxp-1-Lcpbvgfnu Abnorm Protein Band 1 PEP Interpretation Crossmatch 10/23/16 10/23/16 10/23/16 05:49 07:00 07:12 WBC 24.2 H RBC 2.27 L Hgb 7.0 L Hct 21.1 L MCV MCHC RDW 19.7 H Plt Count 35 L D Seg Neuts % (Manual) Lymphocytes % (Manual) Nucleated RBC % Seg Neutrophils # Man Lymphocytes # (Manual) Haptoglobin PT INR Fibrinogen Lupus Anticoagulant LA PTT Baseline POC ABG pH POC ABG pCO2 POC ABG pO2 Sodium Potassium 3.5 L Chloride 95.7 L Carbon Dioxide BUN 55 H Creatinine 2.7 H Glucose 103 H POC Glucose 106 H Lactic Acid Uric Acid Calcium 7.1 L D Phosphorus Iron TIBC Erythropoietin Ferritin Total Bilirubin Direct Bilirubin AST ALT Alkaline Phosphatase Lactate Dehydrogenase C-Reactive Protein Serum Total Protein Total Protein Albumin Qrcpl-3-Gqlsoneog Abnorm Protein Band 1 PEP Interpretation Crossmatch 10/24/16 10/24/16 10/24/16 00:12 05:16 07:00 WBC 17.9 H RBC 2.12 L Hgb 6.5 L Hct 19.9 L* MCV MCHC RDW 19.3 H Plt Count 44 L Seg Neuts % (Manual) Lymphocytes % (Manual) Nucleated RBC % Seg Neutrophils # Man Lymphocytes # (Manual) Haptoglobin PT INR Fibrinogen Lupus Anticoagulant LA PTT Baseline POC ABG pH POC ABG pCO2 POC ABG pO2 Sodium Potassium Chloride Carbon Dioxide BUN Creatinine Glucose POC Glucose 116 H 135 H Lactic Acid Uric Acid Calcium Phosphorus Iron TIBC Erythropoietin Ferritin Total Bilirubin Direct Bilirubin AST ALT Alkaline Phosphatase Lactate Dehydrogenase C-Reactive Protein Serum Total Protein Total Protein Albumin Jfmvw-3-Hajlarvum Abnorm Protein Band 1 PEP Interpretation Crossmatch 10/24/16 10/24/16 10/24/16 07:00 11:45 12:12 WBC RBC Hgb Hct MCV MCHC RDW Plt Count Seg Neuts % (Manual) Lymphocytes % (Manual) Nucleated RBC % Seg Neutrophils # Man Lymphocytes # (Manual) Haptoglobin PT INR Fibrinogen Lupus Anticoagulant LA PTT Baseline POC ABG pH POC ABG pCO2 POC ABG pO2 Sodium Potassium Chloride 92.9 L Carbon Dioxide BUN 74 H Creatinine 3.3 H Glucose 136 H POC Glucose 177 H Lactic Acid Uric Acid Calcium 6.6 L Phosphorus Iron TIBC Erythropoietin Ferritin Total Bilirubin 2.10 H Direct Bilirubin AST 68 H ALT Alkaline Phosphatase 224 H Lactate Dehydrogenase C-Reactive Protein Serum Total Protein Total Protein 4.8 L Albumin 2.3 L Bdeyn-2-Cqclqgmhy Abnorm Protein Band 1 PEP Interpretation Crossmatch See Detail 10/24/16 10/24/16 10/24/16 16:30 16:30 17:28 WBC RBC Hgb Hct MCV MCHC RDW Plt Count Seg Neuts % (Manual) Lymphocytes % (Manual) Nucleated RBC % Seg Neutrophils # Man Lymphocytes # (Manual) Haptoglobin PT INR Fibrinogen Lupus Anticoagulant LA PTT Baseline POC ABG pH POC ABG pCO2 POC ABG pO2 Sodium Potassium Chloride Carbon Dioxide BUN Creatinine Glucose POC Glucose 128 H Lactic Acid 3.00 H* Uric Acid Calcium Phosphorus Iron TIBC Erythropoietin Ferritin Total Bilirubin Direct Bilirubin AST ALT Alkaline Phosphatase Lactate Dehydrogenase C-Reactive Protein 7.40 H Serum Total Protein Total Protein Albumin Zlzbj-3-Ztyzmipol Abnorm Protein Band 1 PEP Interpretation Crossmatch 10/24/16 10/24/16 10/25/16 18:40 23:32 05:00 WBC 17.5 H RBC 2.99 L Hgb 9.1 L Hct 26.9 L D MCV MCHC RDW 17.7 H Plt Count 53 L Seg Neuts % (Manual) Lymphocytes % (Manual) Nucleated RBC % Seg Neutrophils # Man Lymphocytes # (Manual) Haptoglobin PT INR Fibrinogen Lupus Anticoagulant LA PTT Baseline POC ABG pH POC ABG pCO2 POC ABG pO2 Sodium Potassium Chloride Carbon Dioxide BUN Creatinine Glucose POC Glucose 140 H Lactic Acid 3.10 H* Uric Acid Calcium Phosphorus Iron TIBC Erythropoietin Ferritin Total Bilirubin Direct Bilirubin AST ALT Alkaline Phosphatase Lactate Dehydrogenase C-Reactive Protein Serum Total Protein Total Protein Albumin Skmjw-1-Ksilxacox Abnorm Protein Band 1 PEP Interpretation Crossmatch 10/25/16 10/25/16 10/25/16 05:00 05:22 11:58 WBC RBC Hgb Hct MCV MCHC RDW Plt Count Seg Neuts % (Manual) Lymphocytes % (Manual) Nucleated RBC % Seg Neutrophils # Man Lymphocytes # (Manual) Haptoglobin PT INR Fibrinogen Lupus Anticoagulant LA PTT Baseline POC ABG pH POC ABG pCO2 POC ABG pO2 Sodium Potassium Chloride 91.6 L Carbon Dioxide BUN 89 H Creatinine 3.9 H Glucose 150 H POC Glucose 164 H 189 H Lactic Acid Uric Acid Calcium 6.9 L Phosphorus Iron TIBC Erythropoietin Ferritin Total Bilirubin Direct Bilirubin AST ALT Alkaline Phosphatase Lactate Dehydrogenase C-Reactive Protein Serum Total Protein Total Protein Albumin Ynhee-0-Muqxylbtp Abnorm Protein Band 1 PEP Interpretation Crossmatch 10/25/16 10/25/16 10/26/16 17:56 23:12 04:00 WBC RBC Hgb Hct MCV MCHC RDW Plt Count Seg Neuts % (Manual) Lymphocytes % (Manual) Nucleated RBC % Seg Neutrophils # Man Lymphocytes # (Manual) Haptoglobin PT INR Fibrinogen Lupus Anticoagulant LA PTT Baseline POC ABG pH POC ABG pCO2 POC ABG pO2 Sodium 135 L Potassium Chloride 90.7 L Carbon Dioxide BUN 64 H Creatinine 2.9 H Glucose 132 H POC Glucose 156 H 133 H Lactic Acid Uric Acid Calcium 7.3 L Phosphorus Iron TIBC Erythropoietin Ferritin Total Bilirubin Direct Bilirubin AST ALT Alkaline Phosphatase Lactate Dehydrogenase C-Reactive Protein Serum Total Protein Total Protein Albumin Kfzmv-9-Lnjrwrwsr Abnorm Protein Band 1 PEP Interpretation Crossmatch 10/26/16 10/26/16 10/26/16 05:14 06:15 11:51 WBC 18.6 H RBC 3.15 L Hgb 9.6 L Hct 29.0 L MCV MCHC RDW 17.8 H Plt Count 71 L Seg Neuts % (Manual) 85.0 H Lymphocytes % (Manual) 1.0 L Nucleated RBC % Seg Neutrophils # Man 15.8 H Lymphocytes # (Manual) 0.2 L Haptoglobin PT INR Fibrinogen Lupus Anticoagulant LA PTT Baseline POC ABG pH POC ABG pCO2 POC ABG pO2 Sodium Potassium Chloride Carbon Dioxide BUN Creatinine Glucose POC Glucose 130 H 139 H Lactic Acid Uric Acid Calcium Phosphorus Iron TIBC Erythropoietin Ferritin Total Bilirubin Direct Bilirubin AST ALT Alkaline Phosphatase Lactate Dehydrogenase C-Reactive Protein Serum Total Protein Total Protein Albumin Ugilf-7-Xdxjcezud Abnorm Protein Band 1 PEP Interpretation Crossmatch 10/26/16 10/26/16 10/27/16 17:25 23:35 04:10 WBC 16.8 H RBC 3.38 L Hgb 10.1 L Hct 31.0 L MCV MCHC RDW 18.0 H Plt Count 77 L Seg Neuts % (Manual) 92.0 H Lymphocytes % (Manual) 1.0 L Nucleated RBC % 1.0 H Seg Neutrophils # Man 15.5 H Lymphocytes # (Manual) 0.2 L Haptoglobin PT INR Fibrinogen Lupus Anticoagulant LA PTT Baseline POC ABG pH POC ABG pCO2 POC ABG pO2 Sodium Potassium Chloride Carbon Dioxide BUN Creatinine Glucose POC Glucose 118 H 145 H Lactic Acid Uric Acid Calcium Phosphorus Iron TIBC Erythropoietin Ferritin Total Bilirubin Direct Bilirubin AST ALT Alkaline Phosphatase Lactate Dehydrogenase C-Reactive Protein Serum Total Protein Total Protein Albumin Dthim-7-Gcjytpjyp Abnorm Protein Band 1 PEP Interpretation Crossmatch 10/27/16 10/27/16 10/27/16 04:10 05:53 08:14 WBC RBC Hgb Hct MCV MCHC RDW Plt Count Seg Neuts % (Manual) Lymphocytes % (Manual) Nucleated RBC % Seg Neutrophils # Man Lymphocytes # (Manual) Haptoglobin PT 23.0 H INR 2.03 H Fibrinogen Lupus Anticoagulant LA PTT Baseline POC ABG pH POC ABG pCO2 POC ABG pO2 Sodium Potassium Chloride 95.5 L Carbon Dioxide BUN 63 H Creatinine 2.8 H Glucose 112 H POC Glucose 127 H Lactic Acid Uric Acid Calcium 7.5 L Phosphorus Iron TIBC Erythropoietin Ferritin Total Bilirubin Direct Bilirubin AST ALT Alkaline Phosphatase Lactate Dehydrogenase C-Reactive Protein Serum Total Protein Total Protein Albumin Cyvvt-7-Idlidicyj Abnorm Protein Band 1 PEP Interpretation Crossmatch 10/27/16 10/27/16 10/27/16 11:56 17:47 23:55 WBC RBC Hgb Hct MCV MCHC RDW Plt Count Seg Neuts % (Manual) Lymphocytes % (Manual) Nucleated RBC % Seg Neutrophils # Man Lymphocytes # (Manual) Haptoglobin PT INR Fibrinogen Lupus Anticoagulant LA PTT Baseline POC ABG pH POC ABG pCO2 POC ABG pO2 Sodium Potassium Chloride Carbon Dioxide BUN Creatinine Glucose POC Glucose 113 H 117 H 142 H Lactic Acid Uric Acid Calcium Phosphorus Iron TIBC Erythropoietin Ferritin Total Bilirubin Direct Bilirubin AST ALT Alkaline Phosphatase Lactate Dehydrogenase C-Reactive Protein Serum Total Protein Total Protein Albumin Bmlyu-0-Bdiibvzbr Abnorm Protein Band 1 PEP Interpretation Crossmatch 10/28/16 10/28/16 10/28/16 05:45 05:45 11:44 WBC 16.6 H RBC 3.18 L Hgb 9.5 L Hct 29.3 L MCV MCHC RDW 17.6 H Plt Count 83 L Seg Neuts % (Manual) 87.0 H Lymphocytes % (Manual) 3.0 L Nucleated RBC % Seg Neutrophils # Man 14.4 H Lymphocytes # (Manual) 0.5 L Haptoglobin PT INR Fibrinogen Lupus Anticoagulant LA PTT Baseline POC ABG pH POC ABG pCO2 POC ABG pO2 Sodium Potassium Chloride 94.6 L Carbon Dioxide 21 L BUN 90 H Creatinine 3.9 H Glucose 152 H POC Glucose 151 H Lactic Acid Uric Acid Calcium 6.9 L Phosphorus Iron TIBC Erythropoietin Ferritin Total Bilirubin Direct Bilirubin AST ALT Alkaline Phosphatase Lactate Dehydrogenase C-Reactive Protein Serum Total Protein Total Protein Albumin Lifph-8-Dhifinetu Abnorm Protein Band 1 PEP Interpretation Crossmatch 10/28/16 10/28/16 10/29/16 17:31 23:47 04:53 WBC RBC Hgb Hct MCV MCHC RDW Plt Count Seg Neuts % (Manual) Lymphocytes % (Manual) Nucleated RBC % Seg Neutrophils # Man Lymphocytes # (Manual) Haptoglobin PT INR Fibrinogen Lupus Anticoagulant LA PTT Baseline POC ABG pH POC ABG pCO2 POC ABG pO2 Sodium Potassium Chloride Carbon Dioxide BUN Creatinine Glucose POC Glucose 184 H 124 H 153 H Lactic Acid Uric Acid Calcium Phosphorus Iron TIBC Erythropoietin Ferritin Total Bilirubin Direct Bilirubin AST ALT Alkaline Phosphatase Lactate Dehydrogenase C-Reactive Protein Serum Total Protein Total Protein Albumin Ufvjn-0-Pdegtynlk Abnorm Protein Band 1 PEP Interpretation Crossmatch 10/29/16 10/29/16 10/29/16 06:15 06:15 10:58 WBC 14.1 H RBC 3.15 L Hgb 9.6 L Hct 29.1 L MCV MCHC RDW 17.9 H Plt Count 73 L Seg Neuts % (Manual) 93.0 H Lymphocytes % (Manual) 4.0 L Nucleated RBC % Seg Neutrophils # Man 13.1 H Lymphocytes # (Manual) 0.6 L Haptoglobin PT INR Fibrinogen Lupus Anticoagulant LA PTT Baseline POC ABG pH POC ABG pCO2 POC ABG pO2 Sodium Potassium Chloride Carbon Dioxide BUN 58 H Creatinine 2.7 H Glucose 146 H POC Glucose 134 H Lactic Acid Uric Acid Calcium 7.4 L Phosphorus 5.00 H Iron TIBC Erythropoietin Ferritin Total Bilirubin Direct Bilirubin AST ALT Alkaline Phosphatase Lactate Dehydrogenase C-Reactive Protein Serum Total Protein Total Protein Albumin Onrsx-3-Hdjxzenrc Abnorm Protein Band 1 PEP Interpretation Crossmatch 10/29/16 10/29/16 10/30/16 17:06 23:28 05:16 WBC RBC Hgb Hct MCV MCHC RDW Plt Count Seg Neuts % (Manual) Lymphocytes % (Manual) Nucleated RBC % Seg Neutrophils # Man Lymphocytes # (Manual) Haptoglobin PT INR Fibrinogen Lupus Anticoagulant LA PTT Baseline POC ABG pH POC ABG pCO2 POC ABG pO2 Sodium Potassium Chloride Carbon Dioxide BUN Creatinine Glucose POC Glucose 158 H 133 H 147 H Lactic Acid Uric Acid Calcium Phosphorus Iron TIBC Erythropoietin Ferritin Total Bilirubin Direct Bilirubin AST ALT Alkaline Phosphatase Lactate Dehydrogenase C-Reactive Protein Serum Total Protein Total Protein Albumin Qiera-9-Sscchxnwj Abnorm Protein Band 1 PEP Interpretation Crossmatch 10/30/16 10/30/16 10/30/16 06:35 06:35 12:08 WBC 13.0 H RBC 3.08 L Hgb 9.3 L Hct 28.7 L MCV MCHC RDW 18.4 H Plt Count 73 L Seg Neuts % (Manual) Lymphocytes % (Manual) Nucleated RBC % Seg Neutrophils # Man Lymphocytes # (Manual) Haptoglobin PT INR Fibrinogen Lupus Anticoagulant LA PTT Baseline POC ABG pH POC ABG pCO2 POC ABG pO2 Sodium Potassium Chloride Carbon Dioxide BUN 86 H Creatinine 3.5 H Glucose 132 H POC Glucose 134 H Lactic Acid Uric Acid Calcium 7.1 L Phosphorus 5.90 H Iron TIBC Erythropoietin Ferritin Total Bilirubin Direct Bilirubin AST ALT Alkaline Phosphatase Lactate Dehydrogenase C-Reactive Protein Serum Total Protein Total Protein Albumin Ywbyo-3-Ymmvzhurt Abnorm Protein Band 1 PEP Interpretation Crossmatch 10/30/16 10/30/16 10/31/16 18:02 23:31 05:21 WBC RBC Hgb Hct MCV MCHC RDW Plt Count Seg Neuts % (Manual) Lymphocytes % (Manual) Nucleated RBC % Seg Neutrophils # Man Lymphocytes # (Manual) Haptoglobin PT INR Fibrinogen Lupus Anticoagulant LA PTT Baseline POC ABG pH POC ABG pCO2 POC ABG pO2 Sodium Potassium Chloride Carbon Dioxide BUN Creatinine Glucose POC Glucose 142 H 152 H 152 H Lactic Acid Uric Acid Calcium Phosphorus Iron TIBC Erythropoietin Ferritin Total Bilirubin Direct Bilirubin AST ALT Alkaline Phosphatase Lactate Dehydrogenase C-Reactive Protein Serum Total Protein Total Protein Albumin Bofxs-8-Xpuvcpecz Abnorm Protein Band 1 PEP Interpretation Crossmatch 10/31/16 10/31/16 10/31/16 06:21 06:21 12:12 WBC 11.9 H RBC 2.82 L Hgb 8.6 L Hct 26.4 L MCV MCHC RDW 17.8 H Plt Count 56 L Seg Neuts % (Manual) Lymphocytes % (Manual) 0 L Nucleated RBC % Seg Neutrophils # Man 10.9 H Lymphocytes # (Manual) 0.0 L Haptoglobin PT INR Fibrinogen Lupus Anticoagulant LA PTT Baseline POC ABG pH POC ABG pCO2 POC ABG pO2 Sodium Potassium Chloride Carbon Dioxide 21 L BUN 107 H Creatinine 4.2 H Glucose 137 H POC Glucose 142 H Lactic Acid Uric Acid Calcium 7.2 L Phosphorus 6.50 H Iron TIBC Erythropoietin Ferritin Total Bilirubin Direct Bilirubin AST ALT Alkaline Phosphatase Lactate Dehydrogenase C-Reactive Protein Serum Total Protein Total Protein Albumin Pzgli-8-Ocprlzirf Abnorm Protein Band 1 PEP Interpretation Crossmatch 10/31/16 10/31/16 11/01/16 17:34 23:46 05:15 WBC RBC Hgb Hct MCV MCHC RDW Plt Count Seg Neuts % (Manual) Lymphocytes % (Manual) Nucleated RBC % Seg Neutrophils # Man Lymphocytes # (Manual) Haptoglobin PT INR Fibrinogen Lupus Anticoagulant LA PTT Baseline POC ABG pH POC ABG pCO2 POC ABG pO2 Sodium Potassium Chloride Carbon Dioxide BUN Creatinine Glucose POC Glucose 180 H 131 H 148 H Lactic Acid Uric Acid Calcium Phosphorus Iron TIBC Erythropoietin Ferritin Total Bilirubin Direct Bilirubin AST ALT Alkaline Phosphatase Lactate Dehydrogenase C-Reactive Protein Serum Total Protein Total Protein Albumin Vnpbu-4-Ehdxnuwgc Abnorm Protein Band 1 PEP Interpretation Crossmatch 11/01/16 11/01/16 11/01/16 06:00 06:00 11:45 WBC RBC 2.66 L Hgb 8.1 L Hct 24.8 L MCV MCHC RDW 17.7 H Plt Count 47 L Seg Neuts % (Manual) 88.0 H Lymphocytes % (Manual) 0 L Nucleated RBC % Seg Neutrophils # Man Lymphocytes # (Manual) 0.0 L Haptoglobin PT INR Fibrinogen Lupus Anticoagulant LA PTT Baseline POC ABG pH POC ABG pCO2 POC ABG pO2 Sodium 134 L Potassium Chloride 95.6 L Carbon Dioxide BUN 90 H Creatinine 3.5 H Glucose 154 H POC Glucose 169 H Lactic Acid Uric Acid Calcium 7.1 L Phosphorus 5.50 H Iron TIBC Erythropoietin Ferritin Total Bilirubin Direct Bilirubin AST ALT Alkaline Phosphatase Lactate Dehydrogenase C-Reactive Protein Serum Total Protein Total Protein Albumin Rberx-4-Yrtfnnnoz Abnorm Protein Band 1 PEP Interpretation Crossmatch 11/01/16 11/01/16 11/01/16 18:33 20:55 23:51 WBC RBC Hgb Hct MCV MCHC RDW Plt Count Seg Neuts % (Manual) Lymphocytes % (Manual) Nucleated RBC % Seg Neutrophils # Man Lymphocytes # (Manual) Haptoglobin PT INR Fibrinogen Lupus Anticoagulant LA PTT Baseline POC ABG pH POC ABG pCO2 POC ABG pO2 Sodium Potassium Chloride Carbon Dioxide BUN Creatinine Glucose POC Glucose 128 H 144 H Lactic Acid 3.10 H* Uric Acid Calcium Phosphorus Iron TIBC Erythropoietin Ferritin Total Bilirubin Direct Bilirubin AST ALT Alkaline Phosphatase Lactate Dehydrogenase C-Reactive Protein Serum Total Protein Total Protein Albumin Ndwfh-6-Srbbnwrfk Abnorm Protein Band 1 PEP Interpretation Crossmatch 11/02/16 11/02/16 11/02/16 05:15 05:15 05:24 WBC RBC 2.69 L Hgb 8.2 L Hct 25.1 L MCV MCHC RDW 16.9 H Plt Count 42 L Seg Neuts % (Manual) 94.0 H Lymphocytes % (Manual) 0 L Nucleated RBC % Seg Neutrophils # Man Lymphocytes # (Manual) 0.0 L Haptoglobin PT INR Fibrinogen Lupus Anticoagulant LA PTT Baseline POC ABG pH POC ABG pCO2 POC ABG pO2 Sodium 135 L Potassium Chloride 97.7 L Carbon Dioxide BUN 67 H Creatinine 2.8 H Glucose 107 H POC Glucose 119 H Lactic Acid Uric Acid Calcium 7.3 L Phosphorus 4.90 H Iron TIBC Erythropoietin Ferritin Total Bilirubin Direct Bilirubin AST ALT Alkaline Phosphatase Lactate Dehydrogenase C-Reactive Protein Serum Total Protein Total Protein Albumin Vkxji-5-Fffzynwku Abnorm Protein Band 1 PEP Interpretation Crossmatch 11/02/16 11/02/16 11/02/16 06:07 09:26 10:00 WBC RBC 2.83 L Hgb 8.7 L Hct 26.5 L MCV MCHC RDW 17.4 H Plt Count 46 L Seg Neuts % (Manual) Lymphocytes % (Manual) Nucleated RBC % Seg Neutrophils # Man Lymphocytes # (Manual) Haptoglobin PT 19.9 H INR 1.69 H Fibrinogen Lupus Anticoagulant LA PTT Baseline POC ABG pH POC ABG pCO2 POC ABG pO2 Sodium Potassium Chloride Carbon Dioxide BUN Creatinine Glucose POC Glucose 111 H Lactic Acid Uric Acid Calcium Phosphorus Iron TIBC Erythropoietin Ferritin Total Bilirubin Direct Bilirubin AST ALT Alkaline Phosphatase Lactate Dehydrogenase C-Reactive Protein Serum Total Protein Total Protein Albumin Jjupy-4-Ytwlgnuhu Abnorm Protein Band 1 PEP Interpretation Crossmatch 11/03/16 11/03/16 11/03/16 00:02 03:25 03:25 WBC RBC 2.34 L Hgb 7.0 L Hct 21.9 L MCV MCHC RDW 17.6 H Plt Count 49 L Seg Neuts % (Manual) 86.0 H Lymphocytes % (Manual) 4.0 L Nucleated RBC % Seg Neutrophils # Man Lymphocytes # (Manual) 0.3 L Haptoglobin PT INR Fibrinogen Lupus Anticoagulant LA PTT Baseline POC ABG pH POC ABG pCO2 POC ABG pO2 Sodium 136 L Potassium Chloride 94.6 L Carbon Dioxide 21 L BUN 84 H Creatinine 3.2 H Glucose 116 H POC Glucose 114 H Lactic Acid Uric Acid Calcium 7.0 L Phosphorus 5.80 H Iron TIBC Erythropoietin Ferritin Total Bilirubin Direct Bilirubin AST ALT Alkaline Phosphatase Lactate Dehydrogenase C-Reactive Protein Serum Total Protein Total Protein Albumin Qvxcj-8-Hdwpognnc Abnorm Protein Band 1 PEP Interpretation Crossmatch 06/08/17 06/08/17 06/08/17 03:25 11:05 13:02 WBC RBC Hgb Hct MCV MCHC RDW Plt Count Seg Neuts % (Manual) Lymphocytes % (Manual) Nucleated RBC % Seg Neutrophils # Man Lymphocytes # (Manual) Haptoglobin PT 22.5 H INR 1.98 H Fibrinogen Lupus Anticoagulant LA PTT Baseline POC ABG pH POC ABG pCO2 POC ABG pO2 Sodium Potassium Chloride Carbon Dioxide BUN Creatinine Glucose POC Glucose 165 H Lactic Acid Uric Acid Calcium Phosphorus Iron TIBC Erythropoietin Ferritin Total Bilirubin Direct Bilirubin AST ALT Alkaline Phosphatase Lactate Dehydrogenase C-Reactive Protein Serum Total Protein Total Protein Albumin Chjuf-2-Qgmtybdse Abnorm Protein Band 1 PEP Interpretation Crossmatch See Detail 11/03/16 11/04/16 11/04/16 18:13 00:27 05:40 WBC RBC Hgb Hct MCV MCHC RDW Plt Count Seg Neuts % (Manual) Lymphocytes % (Manual) Nucleated RBC % Seg Neutrophils # Man Lymphocytes # (Manual) Haptoglobin PT 20.3 H INR 1.74 H Fibrinogen Lupus Anticoagulant LA PTT Baseline POC ABG pH POC ABG pCO2 POC ABG pO2 Sodium Potassium Chloride Carbon Dioxide BUN Creatinine Glucose POC Glucose 163 H 108 H Lactic Acid Uric Acid Calcium Phosphorus Iron TIBC Erythropoietin Ferritin Total Bilirubin Direct Bilirubin AST ALT Alkaline Phosphatase Lactate Dehydrogenase C-Reactive Protein Serum Total Protein Total Protein Albumin Bqgxr-1-Syvplmtvq Abnorm Protein Band 1 PEP Interpretation Crossmatch 11/04/16 11/04/16 11/04/16 11:41 14:48 17:58 WBC RBC Hgb Hct MCV MCHC RDW Plt Count Seg Neuts % (Manual) Lymphocytes % (Manual) Nucleated RBC % Seg Neutrophils # Man Lymphocytes # (Manual) Haptoglobin PT INR Fibrinogen Lupus Anticoagulant LA PTT Baseline POC ABG pH POC ABG pCO2 POC ABG pO2 107 H Sodium Potassium Chloride Carbon Dioxide BUN Creatinine Glucose POC Glucose 175 H 106 H Lactic Acid Uric Acid Calcium Phosphorus Iron TIBC Erythropoietin Ferritin Total Bilirubin Direct Bilirubin AST ALT Alkaline Phosphatase Lactate Dehydrogenase C-Reactive Protein Serum Total Protein Total Protein Albumin Gvznp-4-Jzjpakcfa Abnorm Protein Band 1 PEP Interpretation Crossmatch 11/05/16 11/05/16 11/05/16 00:21 04:55 05:40 WBC RBC 2.60 L Hgb 8.1 L Hct 24.6 L MCV 95 H MCHC RDW 16.4 H Plt Count 34 L Seg Neuts % (Manual) Lymphocytes % (Manual) 1.0 L Nucleated RBC % Seg Neutrophils # Man Lymphocytes # (Manual) 0.1 L Haptoglobin PT INR Fibrinogen Lupus Anticoagulant LA PTT Baseline POC ABG pH POC ABG pCO2 POC ABG pO2 Sodium Potassium Chloride Carbon Dioxide BUN Creatinine Glucose POC Glucose 117 H 143 H Lactic Acid Uric Acid Calcium Phosphorus Iron TIBC Erythropoietin Ferritin Total Bilirubin Direct Bilirubin AST ALT Alkaline Phosphatase Lactate Dehydrogenase C-Reactive Protein Serum Total Protein Total Protein Albumin Sorct-9-Pwdouvwih Abnorm Protein Band 1 PEP Interpretation Crossmatch 11/05/16 11/05/16 11/05/16 06:00 11:20 18:03 WBC RBC Hgb Hct MCV MCHC RDW Plt Count Seg Neuts % (Manual) Lymphocytes % (Manual) Nucleated RBC % Seg Neutrophils # Man Lymphocytes # (Manual) Haptoglobin PT INR Fibrinogen Lupus Anticoagulant LA PTT Baseline POC ABG pH POC ABG pCO2 POC ABG pO2 Sodium Potassium Chloride Carbon Dioxide BUN 46 H Creatinine 2.0 H Glucose 166 H POC Glucose 147 H 178 H Lactic Acid Uric Acid Calcium 7.3 L Phosphorus Iron TIBC Erythropoietin Ferritin Total Bilirubin Direct Bilirubin AST ALT Alkaline Phosphatase Lactate Dehydrogenase C-Reactive Protein Serum Total Protein Total Protein Albumin Nbhnh-6-Dcukocgij Abnorm Protein Band 1 PEP Interpretation Crossmatch 11/05/16 11/05/16 11/06/16 21:31 23:49 05:09 WBC RBC Hgb Hct MCV MCHC RDW Plt Count Seg Neuts % (Manual) Lymphocytes % (Manual) Nucleated RBC % Seg Neutrophils # Man Lymphocytes # (Manual) Haptoglobin PT INR Fibrinogen Lupus Anticoagulant LA PTT Baseline POC ABG pH 7.464 H POC ABG pCO2 34.8 L POC ABG pO2 219 H Sodium Potassium Chloride Carbon Dioxide BUN Creatinine Glucose POC Glucose 130 H 138 H Lactic Acid Uric Acid Calcium Phosphorus Iron TIBC Erythropoietin Ferritin Total Bilirubin Direct Bilirubin AST ALT Alkaline Phosphatase Lactate Dehydrogenase C-Reactive Protein Serum Total Protein Total Protein Albumin Etxod-8-Hlkgiyohp Abnorm Protein Band 1 PEP Interpretation Crossmatch 11/06/16 11/06/16 11/06/16 08:10 08:10 11:23 WBC RBC 2.78 L Hgb 8.7 L Hct 26.4 L MCV 95 H MCHC RDW 17.3 H Plt Count 34 L Seg Neuts % (Manual) Lymphocytes % (Manual) Nucleated RBC % Seg Neutrophils # Man Lymphocytes # (Manual) Haptoglobin PT INR Fibrinogen Lupus Anticoagulant LA PTT Baseline POC ABG pH POC ABG pCO2 POC ABG pO2 Sodium Potassium Chloride 97.8 L Carbon Dioxide BUN 72 H Creatinine 3.0 H Glucose 173 H POC Glucose 129 H Lactic Acid Uric Acid Calcium 7.2 L Phosphorus Iron TIBC Erythropoietin Ferritin Total Bilirubin Direct Bilirubin AST 105 H ALT Alkaline Phosphatase 759 H Lactate Dehydrogenase C-Reactive Protein Serum Total Protein Total Protein 5.1 L Albumin 1.9 L Leqou-0-Svlyddrwg Abnorm Protein Band 1 PEP Interpretation Crossmatch 11/06/16 11/07/16 11/07/16 17:17 05:09 08:27 WBC RBC 2.76 L Hgb 8.5 L Hct 25.9 L MCV MCHC RDW 16.5 H Plt Count 33 L Seg Neuts % (Manual) Lymphocytes % (Manual) Nucleated RBC % Seg Neutrophils # Man Lymphocytes # (Manual) Haptoglobin PT INR Fibrinogen Lupus Anticoagulant LA PTT Baseline POC ABG pH POC ABG pCO2 POC ABG pO2 Sodium Potassium Chloride Carbon Dioxide BUN Creatinine Glucose POC Glucose 160 H 136 H Lactic Acid Uric Acid Calcium Phosphorus Iron TIBC Erythropoietin Ferritin Total Bilirubin Direct Bilirubin AST ALT Alkaline Phosphatase Lactate Dehydrogenase C-Reactive Protein Serum Total Protein Total Protein Albumin Eqryn-8-Itmgbtvhw Abnorm Protein Band 1 PEP Interpretation Crossmatch 11/07/16 08:27 WBC RBC Hgb Hct MCV MCHC RDW Plt Count Seg Neuts % (Manual) Lymphocytes % (Manual) Nucleated RBC % Seg Neutrophils # Man Lymphocytes # (Manual) Haptoglobin PT INR Fibrinogen Lupus Anticoagulant LA PTT Baseline POC ABG pH POC ABG pCO2 POC ABG pO2 Sodium Potassium Chloride 96.0 L Carbon Dioxide BUN 94 H Creatinine 3.3 H Glucose 115 H POC Glucose Lactic Acid Uric Acid Calcium 7.7 L Phosphorus Iron TIBC Erythropoietin Ferritin Total Bilirubin Direct Bilirubin AST ALT Alkaline Phosphatase Lactate Dehydrogenase C-Reactive Protein Serum Total Protein Total Protein Albumin Fgbxk-8-Hragqrysl Abnorm Protein Band 1 PEP Interpretation Crossmatch Allied health notes reviewed: RT
--- NOTE | 2016-11-07 12:01 | Progress Note ---
Assessment and Plan (1) Thrombocytopenia Current Visit: Yes Status: Acute Plan to address problem: Hematology on board, awaiting [id number] level, follow up Hematology recs (2) Acute renal failure Current Visit: Yes Status: Acute Qualifiers: Acute renal failure type: A Plan to address problem: HD today for clearance and gentle volume removal Assess need for HD on daily basis Monitor for renal recovery Renally dose medications Obtain daily weight Strict intake and output (3) Acute respiratory failure Current Visit: Yes Status: Acute Qualifiers: Respiratory failure complication: hypoxia Qualified Code(s): J96.01 - Acute respiratory failure with hypoxia Plan to address problem: Pulmonology on board, Trach in place, vent management, follow up recs (4) Anemia Current Visit: Yes Status: Acute Qualifiers: Anemia type: unspecified type Iron deficiency anemia type: I Vitamin B12 deficiency anemia type: V Folate deficiency anemia type: F Bone marrow failure anemia type: B Hemolytic anemia type: H Other causes of anemia: O Chronic kidney disease stage: C Qualified Code(s): D64.9 - Anemia, unspecified Plan to address problem: Hematology on board, follow up recs Subjective Date of service: 11/07/16 Principal diagnosis: Sepsis Syndrome; MAHA; RAJESH; CHF; TTP Interval history: on the vent, does not follow commands, no family at bedside Objective - Vital Signs Vital signs: Vital Signs - 12hr 11/07/16 11/07/16 11/07/16 00:00 00:31 00:47 Temperature 98.9 F Pulse Rate 97 H 99 H Pulse Rate [ 78 From Monitor] Pulse Rate [ 78 Left Dorsalis Pedis] Pulse Rate [ 78 Left Radial] Pulse Rate [ 78 Right Dorsalis Pedis] Pulse Rate [ 78 Right Radial] Respiratory 22 24 Rate Blood Pressure 89/64 89/64 O2 Sat by Pulse 98 100 Oximetry 11/07/16 11/07/16 11/07/16 01:00 01:30 02:00 Temperature Pulse Rate 101 H 98 H 99 H Pulse Rate [ From Monitor] Pulse Rate [ Left Dorsalis Pedis] Pulse Rate [ Left Radial] Pulse Rate [ Right Dorsalis Pedis] Pulse Rate [ Right Radial] Respiratory 25 H 23 26 H Rate Blood Pressure 98/69 98/69 107/61 O2 Sat by Pulse 100 100 Oximetry 11/07/16 11/07/16 11/07/16 02:30 03:00 03:30 Temperature Pulse Rate 105 H 102 H 103 H Pulse Rate [ From Monitor] Pulse Rate [ Left Dorsalis Pedis] Pulse Rate [ Left Radial] Pulse Rate [ Right Dorsalis Pedis] Pulse Rate [ Right Radial] Respiratory 31 H 26 H 23 Rate Blood Pressure 107/61 86/63 86/65 O2 Sat by Pulse 100 100 Oximetry 11/07/16 11/07/16 11/07/16 03:45 04:00 04:30 Temperature 99 F 98.9 F Pulse Rate 102 H 100 H Pulse Rate [ 65 From Monitor] Pulse Rate [ 656 H Left Dorsalis Pedis] Pulse Rate [ 65 Left Radial] Pulse Rate [ 65 Right Dorsalis Pedis] Pulse Rate [ 65 Right Radial] Respiratory 24 24 Rate Blood Pressure 94/66 94/66 O2 Sat by Pulse 100 100 Oximetry 11/07/16 11/07/16 11/07/16 04:55 05:00 05:30 Temperature Pulse Rate 81 102 H 98 H Pulse Rate [ From Monitor] Pulse Rate [ Left Dorsalis Pedis] Pulse Rate [ Left Radial] Pulse Rate [ Right Dorsalis Pedis] Pulse Rate [ Right Radial] Respiratory 24 22 Rate Blood Pressure 114/76 92/63 92/63 O2 Sat by Pulse 98 100 Oximetry 11/07/16 11/07/16 11/07/16 06:00 06:30 07:00 Temperature Pulse Rate 103 H 100 H 98 H Pulse Rate [ From Monitor] Pulse Rate [ Left Dorsalis Pedis] Pulse Rate [ Left Radial] Pulse Rate [ Right Dorsalis Pedis] Pulse Rate [ Right Radial] Respiratory 25 H 27 H 23 Rate Blood Pressure 97/69 97/69 80/56 O2 Sat by Pulse 100 100 99 Oximetry 11/07/16 11/07/16 11/07/16 07:30 07:33 08:00 Temperature 98.7 F Pulse Rate 97 H 97 H 102 H Pulse Rate [ From Monitor] Pulse Rate [ Left Dorsalis Pedis] Pulse Rate [ Left Radial] Pulse Rate [ Right Dorsalis Pedis] Pulse Rate [ Right Radial] Respiratory 26 H 27 H 28 H Rate Blood Pressure 85/58 85/58 99/66 O2 Sat by Pulse 100 100 99 Oximetry 11/07/16 11/07/16 11/07/16 08:30 09:00 09:30 Temperature Pulse Rate 105 H 103 H 100 H Pulse Rate [ From Monitor] Pulse Rate [ Left Dorsalis Pedis] Pulse Rate [ Left Radial] Pulse Rate [ Right Dorsalis Pedis] Pulse Rate [ Right Radial] Respiratory 32 H 28 H 23 Rate Blood Pressure 99/66 98/67 98/67 O2 Sat by Pulse 99 99 98 Oximetry 11/07/16 11/07/16 11/07/16 09:47 10:00 10:30 Temperature Pulse Rate 100 H 99 H 102 H Pulse Rate [ From Monitor] Pulse Rate [ Left Dorsalis Pedis] Pulse Rate [ Left Radial] Pulse Rate [ Right Dorsalis Pedis] Pulse Rate [ Right Radial] Respiratory 22 29 H Rate Blood Pressure 98/67 85/58 85/58 O2 Sat by Pulse 96 99 Oximetry 11/07/16 11:00 Temperature Pulse Rate 98 H Pulse Rate [ From Monitor] Pulse Rate [ Left Dorsalis Pedis] Pulse Rate [ Left Radial] Pulse Rate [ Right Dorsalis Pedis] Pulse Rate [ Right Radial] Respiratory 21 Rate Blood Pressure 83/54 O2 Sat by Pulse 99 Oximetry - General Appearance General appearance: cachectic EENT: mucous membranes dry Neck: no JVD Respiratory: Present: Clear to Ascultation Cardiology: tachycardia Gastrointestinal: hypoactive bowel sounds Integumentary: no rash Neurologic: other (does not follow commands) Musculoskeletal: other (2+ pitting edema in BLE) Psychiatric: other (does not answer questions) - Lab 11/07/16 08:27 11/07/16 08:27 Most recent lab results Calcium 7.7 mg/dL (8.4-10.2) L 11/07/16 08:27 Phosphorus 5.80 mg/dL (2.5-4.5) H 11/03/16 03:25
[2016-11-07 12:58] LABS: ISTAT Base Excess -1; ISTAT HCO3 22.8; ISTAT PCO2 29.8 (35-45); ISTAT PH 7.492 (7.35-7.45); ISTAT PO2 132 (80-105); ISTAT SO2 99; ISTAT TCO2 24
[2016-11-07] MEDS: CATHFLO IV PRN (14:24)
[2016-11-07] MEDS ORDERED: NACL 0.9% 100 ML IV PRN (14:42)
[2016-11-07] MEDS: HEPARIN IV PRN (17:34)
[2016-11-07] MEDS: PEPCID PO SCH (19:03)
[2016-11-07] MEDS: LEVOPHED DRIP 4 MG/NS 250 ML 4 MG/250 ML BAG IV SCH (20:18)
--- NOTE | 2016-11-08 00:02 | Consultation ---
History of Present Illness - Reason for Consult Consult date: 11/07/16 - History of Present Illness patient seen/examined, labs reviewed, as well as notes. No family in the room.Remains non responsive. Past History Past Medical History: hypertension, other (Had shingles in November 27-) Past Surgical History: No surgical history Social history: , full code, other (Patienti s and lives with his ). denies: smoking, alcohol abuse, prescription drug abuse, IV drug use Family history: no significant family history Medications and Allergies Allergies Allergy/AdvReac Type Severity Reaction Status Date / Time No Known Allergies Allergy Unverified 10/13/16 09:41 Home Medications Medication Instructions Recorded Confirmed Last Taken Type Naproxen Sodium [Aleve TAB] 2 tab PO Q8H PRN 10/13/16 10/13/16 10/12/16 14:00 History Active Meds: Active Medications Acetaminophen (Tylenol) 1,000 mg MS Q4H PRN PRN Reason: Pain, Mild (1-3) Last Admin: 10/20/16 15:40 Dose: 1,000 mg Acetaminophen (Tylenol) 650 mg FEEDTUBE Q6H PRN PRN Reason: Pain, Mild (1-3) Last Admin: 10/24/16 10:56 Dose: 650 mg Alteplase, Recombinant (Cathflo) 4 mg IV ROD PRN PRN Reason: hemodialysis Last Admin: 11/07/16 14:24 Dose: 4 mg Lipase/Protease/Amylase (Pancreaze Dr 10,500 Unit) 1 each FEEDTUBE PRN PRN PRN Reason: For Clogged Feeding Tube Dextrose (D50w (25gm)) 25 ml IV PRN PRN PRN Reason: Hypoglycemia Last Admin: 10/18/16 07:20 Dose: 25 ml Diphenhydramine HCl (Benadryl) 50 mg IV Q6H PRN PRN Reason: Itching Last Admin: 10/24/16 10:57 Dose: 50 mg Famotidine (Pepcid) 20 mg PO Q24H EDWINA Last Admin: 11/07/16 19:03 Dose: 20 mg Haloperidol Lactate (Haldol) 5 mg IM Q6H PRN PRN Reason: Agitation Last Admin: 10/14/16 21:11 Dose: 5 mg Heparin Sodium (Porcine) (Heparin) 10,000 unit IV ROD PRN PRN Reason: for plasmapheresis- vascath Last Admin: 11/07/16 17:34 Dose: 10,000 unit Hydrophilic Ointment (Vaseline Lip Therapy) 1 applic TP Q2H PRN PRN Reason: Dry Lips Propofol (Diprivan 10 Mg/Ml) 1,000 mg in 100 mls @ 1.827 mls/hr IV TITR EDWINA; 5 MCG/KG/MIN PRN Reason: Protocol Last Titration: 10/20/16 10:12 Dose: 0 mcg/kg/min, 0 mls/hr Fentanyl Citrate (Fentanyl Drip Premix) 2,000 mcg in 100 mls @ 3.045 mls/hr IV TITR EDWINA; 1 MCG/KG/HR PRN Reason: Protocol Sodium Chloride (Nacl 0.9%) 100 mls @ 999 mls/hr IV ROD PRN PRN Reason: Hypotension Norepinephrine (Levophed Drip 4 Mg/Ns 250 Ml) 4 mg in 250 mls @ 7.5 mls/hr IV TITR EDWINA; 2 MCG/MIN PRN Reason: Protocol Last Titration: 11/07/16 20:53 Dose: 5 mcg/min, 18.75 mls/hr Sodium Chloride (Nacl 0.9%) 100 mls @ 999 mls/hr IV ROD PRN PRN Reason: Hypotension Insulin Aspart (Novolog) 0 units SUB-Q Q6HR EDWINA PRN Reason: Protocol Last Admin: 11/07/16 18:42 Dose: Not Given Labetalol HCl (Normodyne) 20 mg IV Q6H PRN PRN Reason: Hypertension Last Admin: 10/25/16 05:33 Dose: 20 mg Loperamide HCl (Imodium A-D) 2 mg PO Q2H PRN PRN Reason: Diarrhea Last Admin: 11/03/16 14:09 Dose: 2 mg Metoprolol Tartrate (Lopressor) 25 mg PO BID EDWINA Last Admin: 11/07/16 21:56 Dose: Not Given Multi-Ingred Cream/Lotion/Oil/Oint (Artificial Tears Ophth Oint) 1 applic OU Q4H PRN PRN Reason: Dry Eye(s) Ondansetron HCl (Zofran) 4 mg IV Q8H PRN PRN Reason: Nausea And Vomiting Simple Syrup (Simple Syrup) 15 ml FEEDTUBE PRN PRN PRN Reason: Hypoglycemia Simple Syrup (Simple Syrup) 30 ml FEEDTUBE PRN PRN PRN Reason: Hypoglycemia Sodium Bicarbonate (Sodium Bicarbonate) 325 mg FEEDTUBE PRN PRN PRN Reason: For Clogged Feeding Tube Last Admin: 11/02/16 11:08 Dose: 325 mg Sodium Chloride (Sodium Chloride Flush Syringe 10 Ml) 10 ml IV PRN PRN PRN Reason: LINE FLUSH Last Admin: 10/17/16 20:45 Dose: 10 ml Exam - Constitutional Vitals: Temp Pulse Resp BP Pulse Ox 99.6 F 102 H 20 91/61 99 11/07/16 21:10 11/07/16 23:30 11/07/16 23:30 11/07/16 23:30 11/07/16 23:30 General appearance: Present: no acute distress, well-nourished - EENT Eyes: Present: PERRL ENT: hearing intact, clear oral mucosa - Neck Neck: Present: supple, normal ROM - Cardiovascular Heart Sounds: Present: S1 & S2. Absent: rub, click - Extremities Extremities: pulses symmetrical, No edema Peripheral Pulses: within normal limits - Abdominal General gastrointestinal: Present: soft, non-tender, non-distended, normal bowel sounds Male genitourinary: Present: deferred - Rectal Rectal Exam: deferred - Integumentary Integumentary: Present: clear, warm, dry - Musculoskeletal Musculoskeletal: strength equal bilaterally Results - Labs CBC & Chem 7: 11/07/16 08:27 11/07/16 08:27 Labs: Abnormal lab results 11/06/16 11/06/16 11/07/16 Range/Units 11:23 17:17 05:09 RBC (3.65-5.03) M/mm3 Hgb (11.8-15.2) gm/dl Hct (35.5-45.6) % RDW (13.2-15.2) % Plt Count (140-440) K/mm3 POC ABG pH (7.35-7.45) POC ABG pCO2 (35-45) POC ABG pO2 (80-105) Chloride (98-107) mmol/L BUN (9-20) mg/dL Creatinine (0.8-1.5) mg/dL Glucose (75-100) mg/dL POC Glucose 129 H 160 H 136 H (70-105) Calcium (8.4-10.2) mg/dL 11/07/16 11/07/16 11/07/16 Range/Units 08:27 08:27 11:37 RBC 2.76 L (3.65-5.03) M/mm3 Hgb 8.5 L (11.8-15.2) gm/dl Hct 25.9 L (35.5-45.6) % RDW 16.5 H (13.2-15.2) % Plt Count 33 L (140-440) K/mm3 POC ABG pH (7.35-7.45) POC ABG pCO2 (35-45) POC ABG pO2 (80-105) Chloride 96.0 L (98-107) mmol/L BUN 94 H (9-20) mg/dL Creatinine 3.3 H (0.8-1.5) mg/dL Glucose 115 H (75-100) mg/dL POC Glucose 113 H (70-105) Calcium 7.7 L (8.4-10.2) mg/dL 11/07/16 11/07/16 11/07/16 Range/Units 12:38 17:20 23:40 RBC (3.65-5.03) M/mm3 Hgb (11.8-15.2) gm/dl Hct (35.5-45.6) % RDW (13.2-15.2) % Plt Count (140-440) K/mm3 POC ABG pH 7.492 H (7.35-7.45) POC ABG pCO2 29.8 L (35-45) POC ABG pO2 132 H (80-105) Chloride (98-107) mmol/L BUN (9-20) mg/dL Creatinine (0.8-1.5) mg/dL Glucose (75-100) mg/dL POC Glucose 121 H 122 H (70-105) Calcium (8.4-10.2) mg/dL Assessment and Plan - Patient Problems (1) Anemia Current Visit: Yes Status: Acute Qualifiers: Anemia type: unspecified type Iron deficiency anemia type: I Vitamin B12 deficiency anemia type: V Folate deficiency anemia type: F Bone marrow failure anemia type: B Hemolytic anemia type: H Other causes of anemia: O Chronic kidney disease stage: C Qualified Code(s): D64.9 - Anemia, unspecified Plan to address problem: will replace if less than 7.0 (2) Leucopenia Current Visit: Yes Status: Acute Qualifiers: Leukopenia type: unspecified Neutropenia type: N Qualified Code(s): D72.819 - Decreased white blood cell count, unspecified Plan to address problem: not binding. (3) Renal failure Current Visit: Yes Status: Acute Qualifiers: Renal failure chronicity: acute Acute renal failure type: unspecified Chronic kidney disease stage: C Qualified Code(s): N17.9 - Acute kidney failure, unspecified Plan to address problem: See w/up, and renal service. 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
[2016-11-08] MEDS: NOVOLOG SUB-Q SCH ×3 (00:03→13:08)
[2016-11-08 05:31] LABS: Hematocrit 26.9 % (35.5-45.6); Hemoglobin 8.9 gm/dl (11.8-15.2); Mean Corpuscular HGB Conc 33 % (32-34); Mean Corpuscular Hemoglobin 31 pg (28-32); Mean Corpuscular Volume 94 fl (84-94); Red Blood Count 2.87 M/mm3 (3.65-5.03); Red Cell Distribution Width 16.7 % (13.2-15.2); White Blood Count 10.5 K/mm3 (4.5-11.0)
[2016-11-08 05:32] LABS: Platelet Count 34 K/mm3 (140-440)
[2016-11-08] MEDS: LEVOPHED DRIP 4 MG/NS 250 ML 4 MG/250 ML BAG IV SCH ×4 (05:39→23:16)
[2016-11-08 05:53] LABS: BUN/Creatinine Ratio 26.07; Calcium 7.6 mg/dL (8.4-10.2); Chloride 98.3 mmol/L (98-107); Potassium 3.9 mmol/L (3.6-5.0)
--- NOTE | 2016-11-08 08:55 | XRay Report ---
PORTABLE CHEST INDICATION: Aspiration. COMPARISON: 11/03/2016 FINDINGS: Portable, frontal chest radiograph demonstrates increased CHF pattern with dense bibasilar opacities/effusions with hemidiaphragms now obscured. Stable cardiomediastinal silhouette/mild cardiomegaly, tracheostomy tube, right IJ catheter tip deep in the right atrium and right upper extremity PICC tip likely along the distal SVC. EKG leads. Stable bones. Few extrinsic artifacts. CONCLUSION: Worsening CHF radiographically with stable supporting devices and mild cardiomegaly, as described. Please correlate. Thank you for the opportunity to participate in this patient's care.
--- NOTE | 2016-11-08 08:57 | Progress Note ---
Assessment and Plan Patient is a 61-year-old man without known past medical history who presented to the emergency department [facility] on 10/13/16, complaining of bilateral leg swelling that worsened for the last 4 days. He was found to have severe metabolic acidosis, creatinine was 14.5 with hyperkalemia, emergent Hemodialysis was done. He was also found to have severe pancytopenia, thrombocytopenia and Dr. 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 He was on bipap and was intubated 10/16/16, details are not readily available on why he needed to be intubated, no nursing note for 10/16. -Acute encephalopathy, not sedated, neurology following CTH confirms multifocal hemorrhagic lesions but no midline shift/compression of brain structures/significant mass effect and is actually improved from prior MRI. CTA H/N w/o vascular lesion. JONATHAN w/o endocarditis or source of emboli. 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 Avoid all blood thinners until hemorrhage stable. BP control: goal < 140/90 -AFIB WITH RVR, stable: Cardiology is following -Group B strep bacteremia: JONATHAN done on 10/27/16 -Acute Respiratory failure with hypoxia, intubated: continue mv -Pancytopenia [leukopenia, severe anemia, Woresening thrombocytopenia] heme/onc is following, s/p PLASMAPHERSIS, s/p PRBC transfusion, s/p plt -ARF, renal tubular stasis, poa s/p hemodialysis: monitor closely -secondary coagulopathy -Lactic acidosis -Probable TTP, await [id number] results -hypoglycemia, resolved -Acute systolic congestive heart failure EF around 30% -SEVERE SEPSIS, poa - cardiogenic shock, on levophed Trach and peg done 11/05/16: pt count dropped to 34, renal function much improved, h/h steady, continue to monitor. 11/06/16: plt count still low. Repeat in am. Severe protein calorie malnutrition , poa, getting worse, ?increase PEG feedings, Eyeglass Lens Generator is following. 11/07/16: ADAMT13 still pending, Heme/onc to follow up. 11/08/13: Platelet count improving, ADAMT13 still pending. cont supportive care Subjective Date of service: 11/08/16 Principal diagnosis: Sepsis Syndrome; MAHA; RAJESH; CHF; TTP Interval history: Patient seen and examined. Patient still intubated. Overnight uneventful. Imaging, old records, testing, labs, nursing notes reviewed. Objective - Exam Narrative Exam: GEN: Critically ill intubated but not sedated HEENT: Eyes are floating,trach in place CVS: irregular, NORMAL S1S2 LUNGS/CHEST: NORMAL CHEST EXPANSION B, GOOD AIR ENTRY B ABD: SOFT, peg in place POSITIVE BOWEL SOUNDS, NONDISTENDED, NO REBOUND OR GUARDING NEURO: CN 2-12 GROSSLY INTACT, he doesn't follow commands PSY: Unresponsive - Constitutional Vitals: Vital Signs - 12hr 11/07/16 11/07/16 11/07/16 21:00 21:10 21:30 Temperature 99.6 F Pulse Rate 105 H 106 H Respiratory 20 22 Rate Respiratory Rate [BILATERAL KNEES] Respiratory Rate [Bilateral Shoulder] Respiratory Rate [RIGHT HAND / WRIST] Blood Pressure 97/68 98/69 O2 Sat by Pulse 100 100 Oximetry 11/07/16 11/07/16 11/07/16 21:55 21:56 22:00 Temperature Pulse Rate 107 H 107 H 105 H Respiratory 21 Rate Respiratory 24 Rate [BILATERAL KNEES] Respiratory 24 Rate [Bilateral Shoulder] Respiratory 24 Rate [RIGHT HAND / WRIST] Blood Pressure 92/66 96/64 O2 Sat by Pulse 100 100 Oximetry 11/07/16 11/07/16 11/07/16 22:30 23:00 23:23 Temperature Pulse Rate 105 H 105 H 105 H Respiratory 19 22 Rate Respiratory Rate [BILATERAL KNEES] Respiratory Rate [Bilateral Shoulder] Respiratory Rate [RIGHT HAND / WRIST] Blood Pressure 90/64 90/60 92/64 O2 Sat by Pulse 100 99 100 Oximetry 11/07/16 11/07/16 11/08/16 23:30 23:36 00:00 Temperature 99.8 F H Pulse Rate 102 H 107 H 103 H Respiratory 20 26 H 23 Rate Respiratory Rate [BILATERAL KNEES] Respiratory Rate [Bilateral Shoulder] Respiratory Rate [RIGHT HAND / WRIST] Blood Pressure 91/61 91/62 98/63 O2 Sat by Pulse 99 100 99 Oximetry 11/08/16 11/08/16 11/08/16 00:30 01:00 01:30 Temperature Pulse Rate 105 H 103 H 101 H Respiratory 26 H 24 20 Rate Respiratory Rate [BILATERAL KNEES] Respiratory Rate [Bilateral Shoulder] Respiratory Rate [RIGHT HAND / WRIST] Blood Pressure 106/73 100/68 104/71 O2 Sat by Pulse 98 100 98 Oximetry 11/08/16 11/08/16 11/08/16 02:00 02:15 02:30 Temperature Pulse Rate 104 H 101 H Respiratory 26 H 26 H Rate Respiratory Rate [BILATERAL KNEES] Respiratory Rate [Bilateral Shoulder] Respiratory Rate [RIGHT HAND / WRIST] Blood Pressure 106/73 94/64 O2 Sat by Pulse 100 100 100 Oximetry 11/08/16 11/08/16 11/08/16 03:00 03:30 03:37 Temperature Pulse Rate 102 H 102 H 105 H Respiratory 21 20 Rate Respiratory Rate [BILATERAL KNEES] Respiratory Rate [Bilateral Shoulder] Respiratory Rate [RIGHT HAND / WRIST] Blood Pressure 110/78 111/77 110/77 O2 Sat by Pulse 100 96 100 Oximetry 11/08/16 11/08/16 11/08/16 03:50 04:00 04:30 Temperature Pulse Rate 105 H 105 H 101 H Respiratory 20 28 H 20 Rate Respiratory Rate [BILATERAL KNEES] Respiratory Rate [Bilateral Shoulder] Respiratory Rate [RIGHT HAND / WRIST] Blood Pressure 110/79 108/76 O2 Sat by Pulse 100 100 Oximetry 11/08/16 11/08/16 11/08/16 05:00 05:30 06:00 Temperature 99.8 F H Pulse Rate 101 H 109 H 96 H Respiratory 24 25 H 20 Rate Respiratory Rate [BILATERAL KNEES] Respiratory Rate [Bilateral Shoulder] Respiratory Rate [RIGHT HAND / WRIST] Blood Pressure 104/73 109/77 92/65 O2 Sat by Pulse 99 100 97 Oximetry 11/08/16 11/08/16 11/08/16 06:10 06:20 08:00 Temperature 98.4 F Pulse Rate 96 H 96 H Respiratory Rate Respiratory Rate [BILATERAL KNEES] Respiratory Rate [Bilateral Shoulder] Respiratory Rate [RIGHT HAND / WRIST] Blood Pressure 107/73 O2 Sat by Pulse 100 100 Oximetry 11/08/16 08:18 Temperature Pulse Rate 102 H Respiratory 27 H Rate Respiratory Rate [BILATERAL KNEES] Respiratory Rate [Bilateral Shoulder] Respiratory Rate [RIGHT HAND / WRIST] Blood Pressure 96/63 O2 Sat by Pulse 100 Oximetry - Labs CBC & Chem 7: 11/09/16 07:39 11/09/16 07:39 Labs: Abnormal lab results 11/06/16 11/06/16 11/07/16 Range/Units 11:23 17:17 08:27 RBC 2.76 L (3.65-5.03) M/mm3 Hgb 8.5 L (11.8-15.2) gm/dl Hct 25.9 L (35.5-45.6) % RDW 16.5 H (13.2-15.2) % Plt Count 33 L (140-440) K/mm3 POC ABG pH (7.35-7.45) POC ABG pCO2 (35-45) POC ABG pO2 (80-105) Chloride (98-107) mmol/L BUN (9-20) mg/dL Creatinine (0.8-1.5) mg/dL Glucose (75-100) mg/dL POC Glucose 129 H 160 H (70-105) Calcium (8.4-10.2) mg/dL 11/07/16 11/07/16 11/07/16 Range/Units 08:27 11:37 12:38 RBC (3.65-5.03) M/mm3 Hgb (11.8-15.2) gm/dl Hct (35.5-45.6) % RDW (13.2-15.2) % Plt Count (140-440) K/mm3 POC ABG pH 7.492 H (7.35-7.45) POC ABG pCO2 29.8 L (35-45) POC ABG pO2 132 H (80-105) Chloride 96.0 L (98-107) mmol/L BUN 94 H (9-20) mg/dL Creatinine 3.3 H (0.8-1.5) mg/dL Glucose 115 H (75-100) mg/dL POC Glucose 113 H (70-105) Calcium 7.7 L (8.4-10.2) mg/dL 11/07/16 11/07/16 11/08/16 Range/Units 17:20 23:40 05:15 RBC 2.87 L (3.65-5.03) M/mm3 Hgb 8.9 L (11.8-15.2) gm/dl Hct 26.9 L (35.5-45.6) % RDW 16.7 H (13.2-15.2) % Plt Count 34 L (140-440) K/mm3 POC ABG pH (7.35-7.45) POC ABG pCO2 (35-45) POC ABG pO2 (80-105) Chloride (98-107) mmol/L BUN (9-20) mg/dL Creatinine (0.8-1.5) mg/dL Glucose (75-100) mg/dL POC Glucose 121 H 122 H (70-105) Calcium (8.4-10.2) mg/dL 11/08/16 11/08/16 Range/Units 05:15 05:31 RBC (3.65-5.03) M/mm3 Hgb (11.8-15.2) gm/dl Hct (35.5-45.6) % RDW (13.2-15.2) % Plt Count (140-440) K/mm3 POC ABG pH (7.35-7.45) POC ABG pCO2 (35-45) POC ABG pO2 (80-105) Chloride (98-107) mmol/L BUN 73 H (9-20) mg/dL Creatinine 2.8 H (0.8-1.5) mg/dL Glucose 110 H (75-100) mg/dL POC Glucose 106 H (70-105) Calcium 7.6 L (8.4-10.2) mg/dL
--- NOTE | 2016-11-08 09:47 | Progress Note ---
Assessment and Plan (1) Thrombocytopenia Current Visit: Yes Status: Acute Plan to address problem: Hematology on board, awaiting [id number] level, follow up Hematology recs (2) Acute renal failure Current Visit: Yes Status: Acute Qualifiers: Acute renal failure type: A Plan to address problem: no HD indicated today Assess need for HD on daily basis Monitor for renal recovery Renally dose medications Obtain daily weight Strict intake and output (3) Acute respiratory failure Current Visit: Yes Status: Acute Qualifiers: Respiratory failure complication: hypoxia Qualified Code(s): J96.01 - Acute respiratory failure with hypoxia Plan to address problem: Pulmonology on board, Trach in place, vent management, follow up recs (4) Anemia Current Visit: Yes Status: Acute Qualifiers: Anemia type: unspecified type Iron deficiency anemia type: I Vitamin B12 deficiency anemia type: V Folate deficiency anemia type: F Bone marrow failure anemia type: B Hemolytic anemia type: H Other causes of anemia: O Chronic kidney disease stage: C Qualified Code(s): D64.9 - Anemia, unspecified Plan to address problem: Hematology on board, follow up recs Subjective Date of service: 11/08/16 Principal diagnosis: Sepsis Syndrome; MAHA; RAJESH; CHF; TTP Interval history: s/p HD yesterday, at bedside, all questions answered Objective - Vital Signs Vital signs: Vital Signs - 12hr 11/07/16 11/07/16 11/07/16 21:55 21:56 22:00 Temperature Pulse Rate 107 H 107 H 105 H Respiratory 21 Rate Respiratory 24 Rate [BILATERAL KNEES] Respiratory 24 Rate [Bilateral Shoulder] Respiratory 24 Rate [RIGHT HAND / WRIST] Blood Pressure 92/66 96/64 O2 Sat by Pulse 100 100 Oximetry 11/07/16 11/07/16 11/07/16 22:30 23:00 23:23 Temperature Pulse Rate 105 H 105 H 105 H Respiratory 19 22 Rate Respiratory Rate [BILATERAL KNEES] Respiratory Rate [Bilateral Shoulder] Respiratory Rate [RIGHT HAND / WRIST] Blood Pressure 90/64 90/60 92/64 O2 Sat by Pulse 100 99 100 Oximetry 11/07/16 11/07/16 11/08/16 23:30 23:36 00:00 Temperature 99.8 F H Pulse Rate 102 H 107 H 103 H Respiratory 20 26 H 23 Rate Respiratory Rate [BILATERAL KNEES] Respiratory Rate [Bilateral Shoulder] Respiratory Rate [RIGHT HAND / WRIST] Blood Pressure 91/61 91/62 98/63 O2 Sat by Pulse 99 100 99 Oximetry 11/08/16 11/08/16 11/08/16 00:30 01:00 01:30 Temperature Pulse Rate 105 H 103 H 101 H Respiratory 26 H 24 20 Rate Respiratory Rate [BILATERAL KNEES] Respiratory Rate [Bilateral Shoulder] Respiratory Rate [RIGHT HAND / WRIST] Blood Pressure 106/73 100/68 104/71 O2 Sat by Pulse 98 100 98 Oximetry 11/08/16 11/08/16 11/08/16 02:00 02:15 02:30 Temperature Pulse Rate 104 H 101 H Respiratory 26 H 26 H Rate Respiratory Rate [BILATERAL KNEES] Respiratory Rate [Bilateral Shoulder] Respiratory Rate [RIGHT HAND / WRIST] Blood Pressure 106/73 94/64 O2 Sat by Pulse 100 100 100 Oximetry 11/08/16 11/08/16 11/08/16 03:00 03:30 03:37 Temperature Pulse Rate 102 H 102 H 105 H Respiratory 21 20 Rate Respiratory Rate [BILATERAL KNEES] Respiratory Rate [Bilateral Shoulder] Respiratory Rate [RIGHT HAND / WRIST] Blood Pressure 110/78 111/77 110/77 O2 Sat by Pulse 100 96 100 Oximetry 11/08/16 11/08/16 11/08/16 03:50 04:00 04:30 Temperature Pulse Rate 105 H 105 H 101 H Respiratory 20 28 H 20 Rate Respiratory Rate [BILATERAL KNEES] Respiratory Rate [Bilateral Shoulder] Respiratory Rate [RIGHT HAND / WRIST] Blood Pressure 110/79 108/76 O2 Sat by Pulse 100 100 Oximetry 11/08/16 11/08/16 11/08/16 05:00 05:30 06:00 Temperature 99.8 F H Pulse Rate 101 H 109 H 96 H Respiratory 24 25 H 20 Rate Respiratory Rate [BILATERAL KNEES] Respiratory Rate [Bilateral Shoulder] Respiratory Rate [RIGHT HAND / WRIST] Blood Pressure 104/73 109/77 92/65 O2 Sat by Pulse 99 100 97 Oximetry 11/08/16 11/08/16 11/08/16 06:10 06:20 08:00 Temperature 98.4 F Pulse Rate 96 H 96 H Respiratory Rate Respiratory Rate [BILATERAL KNEES] Respiratory Rate [Bilateral Shoulder] Respiratory Rate [RIGHT HAND / WRIST] Blood Pressure 107/73 O2 Sat by Pulse 100 100 Oximetry 11/08/16 08:18 Temperature Pulse Rate 102 H Respiratory 27 H Rate Respiratory Rate [BILATERAL KNEES] Respiratory Rate [Bilateral Shoulder] Respiratory Rate [RIGHT HAND / WRIST] Blood Pressure 96/63 O2 Sat by Pulse 100 Oximetry - General Appearance General appearance: cachectic EENT: ATNC, PERRL Neck: no JVD, no carotid bruit Respiratory: Present: Decreased Breath Sounds Cardiology: irregular Gastrointestinal: normal Integumentary: no rash, warm and dry Neurologic: other (does not follow commands) Musculoskeletal: other (2+ pitting edema in BLE) Psychiatric: other (does not answer questions) - Lab 11/08/16 05:15 11/08/16 05:15 Most recent lab results Calcium 7.6 mg/dL (8.4-10.2) L 11/08/16 05:15 Phosphorus 5.80 mg/dL (2.5-4.5) H 11/03/16 03:25
[2016-11-08 10:15] LABS: ISTAT Base Excess 1; ISTAT HCO3 23.5; ISTAT PCO2 29.5 (35-45); ISTAT PO2 114 (80-105); ISTAT SO2 99; ISTAT TCO2 24
[2016-11-08] MEDS: LOPRESSOR PO SCH ×2 (11:50→23:14)
--- NOTE | 2016-11-08 11:51 | Progress Note ---
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 - continue HD/UF per nephrology recs - follow I's and O's - correct electrolytes prn - continue to avoid nephrotoxins - per nephrology otherwise (3) Metabolic acidosis Current Visit: Yes Status: Acute Plan to address problem: - mixed etiology - Lactic Acidosis component resolved - sepsis may have been driving force for that - RAJESH component - continue HD/UF per nephrology prescription - complete Anti-infectives per ID recs (4) CHF (congestive heart failure) Current Visit: Yes Status: Acute Qualifiers: Congestive heart failure type: C Congestive heart failure chronicity: C Plan to address problem: - ECHO consistent with possible infiltrating disease - cardiology consulted - EF 30& - will look to HD/UF for volume clearance as not responsive to diuretics (5) Pancytopenia Current Visit: Yes Status: Acute Plan to address problem: - hematology on case - s/p plasmapheresis - may need bone marrow evaluation - follow platelet count (6) Acute encephalopathy Current Visit: Yes Status: Acute Plan to address problem: - CT brain negative - likely toxic-metabolic encephalopathy element also - MRI abnormal - neurology evaluation ongoing - following clinically (7) Hypoglycemia Current Visit: Yes Status: Acute Plan to address problem: - improved - suspect sepsis related element - will continue systemic steroids but taper - also continue enteral nutrition - continue glycemic control via SSI at this point (8) Sepsis syndrome Current Visit: Yes Status: Acute Plan to address problem: - s/p antibiotic course - ID on case - CRP and lactate much improved - JONATHAN negative - following clinically - c-diff assay negative - Anti-infectives per ID recs (off AB's now) (9) Discharge planning issues Current Visit: Yes Status: Acute Plan to address problem: - he remains critically ill on life sustaining interventions including MVS and at risk for further deterioration including ...30' CCT Subjective Date of service: 11/08/16 Principal diagnosis: Sepsis Syndrome; MAHA; RAJESH; CHF; TTP Interval history: Seen and examined at bedside; 24 hour events reviewed; nursing and respiratory care staff consulted; no adverse overnight events reported to me; tolerated PSV albeit tenuously at times but quickly failed a t-piece trial; secretions are increased also; AMS is persistent; no emesis or overt aspiration Objective Vital Signs - 12hr 11/08/16 11/08/16 11/08/16 00:00 00:30 01:00 Temperature 99.8 F H Pulse Rate 103 H 105 H 103 H Respiratory 23 26 H 24 Rate Respiratory Rate [BILATERAL KNEES] Respiratory Rate [Bilateral Shoulder] Respiratory Rate [RIGHT HAND / WRIST] Blood Pressure 98/63 106/73 100/68 O2 Sat by Pulse 99 98 100 Oximetry 11/08/16 11/08/16 11/08/16 01:30 02:00 02:15 Temperature Pulse Rate 101 H 104 H Respiratory 20 26 H Rate Respiratory Rate [BILATERAL KNEES] Respiratory Rate [Bilateral Shoulder] Respiratory Rate [RIGHT HAND / WRIST] Blood Pressure 104/71 106/73 O2 Sat by Pulse 98 100 100 Oximetry 11/08/16 11/08/16 11/08/16 02:30 03:00 03:30 Temperature Pulse Rate 101 H 102 H 102 H Respiratory 26 H 21 20 Rate Respiratory Rate [BILATERAL KNEES] Respiratory Rate [Bilateral Shoulder] Respiratory Rate [RIGHT HAND / WRIST] Blood Pressure 94/64 110/78 111/77 O2 Sat by Pulse 100 100 96 Oximetry 11/08/16 11/08/16 11/08/16 03:37 03:50 04:00 Temperature Pulse Rate 105 H 105 H 105 H Respiratory 20 28 H Rate Respiratory Rate [BILATERAL KNEES] Respiratory Rate [Bilateral Shoulder] Respiratory Rate [RIGHT HAND / WRIST] Blood Pressure 110/77 110/79 O2 Sat by Pulse 100 100 Oximetry 11/08/16 11/08/16 11/08/16 04:30 05:00 05:30 Temperature Pulse Rate 101 H 101 H 109 H Respiratory 20 24 25 H Rate Respiratory Rate [BILATERAL KNEES] Respiratory Rate [Bilateral Shoulder] Respiratory Rate [RIGHT HAND / WRIST] Blood Pressure 108/76 104/73 109/77 O2 Sat by Pulse 100 99 100 Oximetry 11/08/16 11/08/16 11/08/16 06:00 06:10 06:20 Temperature 99.8 F H Pulse Rate 96 H 96 H 96 H Respiratory 20 Rate Respiratory Rate [BILATERAL KNEES] Respiratory Rate [Bilateral Shoulder] Respiratory Rate [RIGHT HAND / WRIST] Blood Pressure 92/65 107/73 O2 Sat by Pulse 97 100 100 Oximetry 11/08/16 11/08/16 11/08/16 06:30 07:00 07:30 Temperature Pulse Rate 101 H 100 H 104 H Respiratory 26 H 29 H 33 H Rate Respiratory Rate [BILATERAL KNEES] Respiratory Rate [Bilateral Shoulder] Respiratory Rate [RIGHT HAND / WRIST] Blood Pressure 107/73 105/75 110/74 O2 Sat by Pulse 100 98 Oximetry 11/08/16 11/08/16 11/08/16 08:00 08:18 08:30 Temperature 98.4 F Pulse Rate 96 H 102 H 105 H Respiratory 32 H 27 H 28 H Rate Respiratory Rate [BILATERAL KNEES] Respiratory Rate [Bilateral Shoulder] Respiratory Rate [RIGHT HAND / WRIST] Blood Pressure 96/63 96/63 88/57 O2 Sat by Pulse 96 100 98 Oximetry 11/08/16 11/08/16 11/08/16 09:00 09:30 10:00 Temperature Pulse Rate 99 H 99 H 98 H Respiratory 27 H 25 H 27 H Rate Respiratory 22 Rate [BILATERAL KNEES] Respiratory 22 Rate [Bilateral Shoulder] Respiratory 24 Rate [RIGHT HAND / WRIST] Blood Pressure 82/43 98/69 96/66 O2 Sat by Pulse 99 100 Oximetry 11/08/16 11/08/16 11/08/16 10:30 11:00 11:30 Temperature Pulse Rate 101 H 100 H 100 H Respiratory 31 H 30 H 29 H Rate Respiratory Rate [BILATERAL KNEES] Respiratory Rate [Bilateral Shoulder] Respiratory Rate [RIGHT HAND / WRIST] Blood Pressure 94/65 89/52 87/56 O2 Sat by Pulse 98 98 97 Oximetry Constitutional: no acute distress, other (lethargic to encephalopathic) Eyes: non-icteric ENT: oropharynx moist Neck: supple, no lymphadenopathy Effort: mildly labored Ascultation: Bilateral: rales Cardiovascular: irregular rhythm Gastrointestinal: normoactive bowel sounds, soft, non-tender, non-distended Integumentary: normal Extremities: no cyanosis, pulses normal, no ischemia or petechiae, edema Neurologic: non-focal exam (grossly), pupils equal and round, unable to assess Psychiatric: other (unable to assess) CBC and BMP: 11/08/16 05:15 11/08/16 05:15 ABG, PT/INR, D-dimer: ABG POC ABG pH 7.510 (7.35-7.45) H 11/08/16 10:05 POC ABG pCO2 29.5 (35-45) L 11/08/16 10:05 POC ABG pO2 114 (80-105) H 11/08/16 10:05 POC ABG HCO3 23.5 11/08/16 10:05 POC ABG Total CO2 24 11/08/16 10:05 POC ABG O2 Sat 99 11/08/16 10:05 PT/INR, D-dimer PT 20.3 Sec. (12.2-14.9) H 11/04/16 05:40 INR 1.74 (0.87-1.13) H 11/04/16 05:40 Abnormal lab findings: Abnormal Labs 10/13/16 10/13/16 10/13/16 14:50 21:40 22:05 WBC RBC Hgb Hct MCV MCHC RDW Plt Count Seg Neuts % (Manual) Lymphocytes % (Manual) Nucleated RBC % Seg Neutrophils # Man Lymphocytes # (Manual) Haptoglobin PT INR Fibrinogen Lupus Anticoagulant LA PTT Baseline POC ABG pH POC ABG pCO2 POC ABG pO2 Sodium Potassium Chloride Carbon Dioxide BUN Creatinine Glucose POC Glucose 52 L 43 L Lactic Acid Uric Acid Calcium Phosphorus Iron TIBC Erythropoietin Ferritin Total Bilirubin Direct Bilirubin AST ALT Alkaline Phosphatase Lactate Dehydrogenase C-Reactive Protein Serum Total Protein 5.6 L Total Protein Albumin 2.2 L Jvozv-1-Lydwsdxcs 0.5 H Abnorm Protein Band 1 1.4 H PEP Interpretation see below H Crossmatch 10/13/16 10/14/16 10/14/16 23:18 03:00 03:00 WBC RBC Hgb Hct MCV MCHC RDW Plt Count Seg Neuts % (Manual) Lymphocytes % (Manual) Nucleated RBC % Seg Neutrophils # Man Lymphocytes # (Manual) Haptoglobin PT INR Fibrinogen Lupus Anticoagulant see below H LA PTT Baseline 55 H POC ABG pH POC ABG pCO2 POC ABG pO2 Sodium Potassium Chloride Carbon Dioxide BUN Creatinine Glucose POC Glucose 113 H Lactic Acid Uric Acid Calcium Phosphorus Iron TIBC Erythropoietin Ferritin Total Bilirubin Direct Bilirubin AST ALT Alkaline Phosphatase Lactate Dehydrogenase 406 H C-Reactive Protein Serum Total Protein Total Protein Albumin Hmzmk-8-Wbzqsajzs Abnorm Protein Band 1 PEP Interpretation Crossmatch 10/14/16 10/14/16 10/14/16 03:00 03:00 04:34 WBC 1.3 L* RBC 2.33 L Hgb 7.3 L Hct 21.7 L MCV MCHC RDW 19.8 H Plt Count 99 L Seg Neuts % (Manual) Lymphocytes % (Manual) 3.0 L Nucleated RBC % Seg Neutrophils # Man 0.9 L Lymphocytes # (Manual) 0.0 L Haptoglobin PT INR Fibrinogen Lupus Anticoagulant LA PTT Baseline POC ABG pH POC ABG pCO2 POC ABG pO2 Sodium Potassium Chloride Carbon Dioxide 18 L BUN 73 H Creatinine 9.8 H Glucose 59 L POC Glucose Lactic Acid Uric Acid 8.0 H Calcium 8.2 L Phosphorus 6.60 H Iron 13 L TIBC 160 L Erythropoietin Ferritin Total Bilirubin Direct Bilirubin AST ALT Alkaline Phosphatase Lactate Dehydrogenase C-Reactive Protein Serum Total Protein Total Protein Albumin Anlpb-4-Oaznydzgc Abnorm Protein Band 1 PEP Interpretation Crossmatch 10/14/16 10/14/16 10/14/16 05:27 06:29 07:34 WBC RBC Hgb Hct MCV MCHC RDW Plt Count Seg Neuts % (Manual) Lymphocytes % (Manual) Nucleated RBC % Seg Neutrophils # Man Lymphocytes # (Manual) Haptoglobin PT INR Fibrinogen Lupus Anticoagulant LA PTT Baseline POC ABG pH POC ABG pCO2 POC ABG pO2 Sodium Potassium Chloride Carbon Dioxide BUN Creatinine Glucose POC Glucose < 40 L 63 L < 40 L Lactic Acid Uric Acid Calcium Phosphorus Iron TIBC Erythropoietin Ferritin Total Bilirubin Direct Bilirubin AST ALT Alkaline Phosphatase Lactate Dehydrogenase C-Reactive Protein Serum Total Protein Total Protein Albumin Wvxbk-5-Qwmpwitfx Abnorm Protein Band 1 PEP Interpretation Crossmatch 10/14/16 10/14/16 10/14/16 09:58 09:58 09:58 WBC RBC Hgb Hct MCV MCHC RDW Plt Count Seg Neuts % (Manual) Lymphocytes % (Manual) Nucleated RBC % Seg Neutrophils # Man Lymphocytes # (Manual) Haptoglobin 218 H PT INR Fibrinogen 557 H Lupus Anticoagulant LA PTT Baseline POC ABG pH POC ABG pCO2 POC ABG pO2 Sodium Potassium Chloride Carbon Dioxide BUN Creatinine Glucose POC Glucose Lactic Acid Uric Acid Calcium Phosphorus Iron TIBC Erythropoietin Ferritin Total Bilirubin 1.30 H Direct Bilirubin 1.1 H AST ALT Alkaline Phosphatase Lactate Dehydrogenase C-Reactive Protein Serum Total Protein Total Protein Albumin Vmnqy-2-Cstjpcely Abnorm Protein Band 1 PEP Interpretation Crossmatch 10/14/16 10/14/16 10/14/16 10:57 11:15 12:52 WBC RBC Hgb Hct MCV MCHC RDW Plt Count Seg Neuts % (Manual) Lymphocytes % (Manual) Nucleated RBC % Seg Neutrophils # Man Lymphocytes # (Manual) Haptoglobin PT INR Fibrinogen Lupus Anticoagulant LA PTT Baseline POC ABG pH POC ABG pCO2 POC ABG pO2 Sodium Potassium Chloride Carbon Dioxide BUN Creatinine Glucose POC Glucose < 40 L < 40 L Lactic Acid 9.60 H* Uric Acid Calcium Phosphorus Iron TIBC Erythropoietin Ferritin Total Bilirubin Direct Bilirubin AST ALT Alkaline Phosphatase Lactate Dehydrogenase C-Reactive Protein Serum Total Protein Total Protein Albumin Cgbua-7-Akleuqewq Abnorm Protein Band 1 PEP Interpretation Crossmatch 10/14/16 10/14/16 10/14/16 12:52 13:17 14:12 WBC RBC Hgb Hct MCV MCHC RDW Plt Count Seg Neuts % (Manual) Lymphocytes % (Manual) Nucleated RBC % Seg Neutrophils # Man Lymphocytes # (Manual) Haptoglobin PT INR Fibrinogen Lupus Anticoagulant LA PTT Baseline POC ABG pH POC ABG pCO2 POC ABG pO2 Sodium Potassium Chloride Carbon Dioxide BUN Creatinine Glucose POC Glucose < 40 L < 40 L Lactic Acid Uric Acid Calcium Phosphorus Iron TIBC Erythropoietin Ferritin Total Bilirubin Direct Bilirubin AST ALT Alkaline Phosphatase Lactate Dehydrogenase C-Reactive Protein 40.40 H Serum Total Protein Total Protein Albumin Iwrrs-0-Gqefmanhs Abnorm Protein Band 1 PEP Interpretation Crossmatch 10/14/16 10/14/16 10/14/16 15:02 15:33 15:33 WBC RBC Hgb Hct MCV MCHC RDW Plt Count Seg Neuts % (Manual) Lymphocytes % (Manual) Nucleated RBC % Seg Neutrophils # Man Lymphocytes # (Manual) Haptoglobin PT INR Fibrinogen Lupus Anticoagulant LA PTT Baseline POC ABG pH POC ABG pCO2 POC ABG pO2 Sodium Potassium Chloride Carbon Dioxide BUN Creatinine Glucose 19 L* POC Glucose < 40 L Lactic Acid 11.60 H* Uric Acid Calcium Phosphorus Iron TIBC Erythropoietin Ferritin Total Bilirubin Direct Bilirubin AST ALT Alkaline Phosphatase Lactate Dehydrogenase C-Reactive Protein Serum Total Protein Total Protein Albumin Tmqfd-9-Rmxrlvwtj Abnorm Protein Band 1 PEP Interpretation Crossmatch 10/14/16 10/14/16 10/14/16 17:14 18:03 21:25 WBC RBC Hgb Hct MCV MCHC RDW Plt Count Seg Neuts % (Manual) Lymphocytes % (Manual) Nucleated RBC % Seg Neutrophils # Man Lymphocytes # (Manual) Haptoglobin PT 28.9 H INR 2.71 H Fibrinogen Lupus Anticoagulant LA PTT Baseline POC ABG pH POC ABG pCO2 POC ABG pO2 Sodium Potassium Chloride Carbon Dioxide BUN Creatinine Glucose POC Glucose < 40 L 57 L Lactic Acid Uric Acid Calcium Phosphorus Iron TIBC Erythropoietin Ferritin Total Bilirubin Direct Bilirubin AST ALT Alkaline Phosphatase Lactate Dehydrogenase C-Reactive Protein Serum Total Protein Total Protein Albumin Srnot-7-Crwvelwqi Abnorm Protein Band 1 PEP Interpretation Crossmatch 10/15/16 10/15/16 10/15/16 05:32 05:35 05:35 WBC RBC 2.62 L Hgb 8.1 L Hct 25.8 L MCV 98 H D MCHC 31 L RDW 21.2 H Plt Count 61 L Seg Neuts % (Manual) 27.0 L Lymphocytes % (Manual) 10.0 L Nucleated RBC % 2.0 H Seg Neutrophils # Man Lymphocytes # (Manual) 0.8 L Haptoglobin PT INR Fibrinogen Lupus Anticoagulant LA PTT Baseline POC ABG pH POC ABG pCO2 POC ABG pO2 Sodium Potassium Chloride Carbon Dioxide BUN Creatinine Glucose POC Glucose < 40 L Lactic Acid Uric Acid Calcium Phosphorus Iron TIBC Erythropoietin Ferritin Total Bilirubin Direct Bilirubin AST ALT Alkaline Phosphatase Lactate Dehydrogenase 3871 H C-Reactive Protein Serum Total Protein Total Protein Albumin Iazau-2-Xjdawbuoa Abnorm Protein Band 1 PEP Interpretation Crossmatch 10/15/16 10/15/16 10/15/16 05:35 05:35 05:35 WBC RBC Hgb Hct MCV MCHC RDW Plt Count Seg Neuts % (Manual) Lymphocytes % (Manual) Nucleated RBC % Seg Neutrophils # Man Lymphocytes # (Manual) Haptoglobin PT INR Fibrinogen Lupus Anticoagulant LA PTT Baseline POC ABG pH POC ABG pCO2 POC ABG pO2 Sodium 136 L Potassium 5.3 H D Chloride 91.4 L Carbon Dioxide 6 L* D BUN 57 H Creatinine 7.1 H Glucose 11 L* POC Glucose Lactic Acid 13.60 H* Uric Acid Calcium 7.7 L Phosphorus 10.10 H D Iron TIBC 166 L Erythropoietin Ferritin 9562.0 H Total Bilirubin Direct Bilirubin AST ALT Alkaline Phosphatase Lactate Dehydrogenase C-Reactive Protein Serum Total Protein Total Protein Albumin Dithm-6-Hrbizkmyx Abnorm Protein Band 1 PEP Interpretation Crossmatch 10/15/16 10/15/16 10/15/16 05:51 06:22 06:52 WBC RBC Hgb Hct MCV MCHC RDW Plt Count Seg Neuts % (Manual) Lymphocytes % (Manual) Nucleated RBC % Seg Neutrophils # Man Lymphocytes # (Manual) Haptoglobin PT INR Fibrinogen Lupus Anticoagulant LA PTT Baseline POC ABG pH 7.189 L POC ABG pCO2 28.9 L POC ABG pO2 Sodium Potassium Chloride Carbon Dioxide BUN Creatinine Glucose POC Glucose 59 L 111 H Lactic Acid Uric Acid Calcium Phosphorus Iron TIBC Erythropoietin Ferritin Total Bilirubin Direct Bilirubin AST ALT Alkaline Phosphatase Lactate Dehydrogenase C-Reactive Protein Serum Total Protein Total Protein Albumin Dutot-0-Zeutzryoj Abnorm Protein Band 1 PEP Interpretation Crossmatch 10/15/16 10/15/16 10/15/16 08:00 09:57 11:42 WBC RBC Hgb Hct MCV MCHC RDW Plt Count Seg Neuts % (Manual) Lymphocytes % (Manual) Nucleated RBC % Seg Neutrophils # Man Lymphocytes # (Manual) Haptoglobin PT INR Fibrinogen Lupus Anticoagulant LA PTT Baseline POC ABG pH POC ABG pCO2 POC ABG pO2 Sodium Potassium Chloride Carbon Dioxide BUN Creatinine Glucose POC Glucose 63 L 143 H 203 H Lactic Acid Uric Acid Calcium Phosphorus Iron TIBC Erythropoietin Ferritin Total Bilirubin Direct Bilirubin AST ALT Alkaline Phosphatase Lactate Dehydrogenase C-Reactive Protein Serum Total Protein Total Protein Albumin Tsjfz-1-Pafcezsxm Abnorm Protein Band 1 PEP Interpretation Crossmatch 10/15/16 10/15/16 10/15/16 12:00 12:00 13:00 WBC RBC Hgb Hct MCV MCHC RDW Plt Count Seg Neuts % (Manual) Lymphocytes % (Manual) Nucleated RBC % Seg Neutrophils # Man Lymphocytes # (Manual) Haptoglobin <15 L PT INR Fibrinogen Lupus Anticoagulant LA PTT Baseline POC ABG pH POC ABG pCO2 POC ABG pO2 Sodium Potassium Chloride Carbon Dioxide BUN Creatinine Glucose POC Glucose 136 H Lactic Acid 16.30 H* Uric Acid Calcium Phosphorus Iron TIBC Erythropoietin Ferritin Total Bilirubin Direct Bilirubin AST ALT Alkaline Phosphatase Lactate Dehydrogenase C-Reactive Protein Serum Total Protein Total Protein Albumin Wtlnf-6-Cwnjcgnxs Abnorm Protein Band 1 PEP Interpretation Crossmatch 10/15/16 10/15/16 10/15/16 14:06 15:15 16:23 WBC RBC Hgb Hct MCV MCHC RDW Plt Count Seg Neuts % (Manual) Lymphocytes % (Manual) Nucleated RBC % Seg Neutrophils # Man Lymphocytes # (Manual) Haptoglobin PT INR Fibrinogen Lupus Anticoagulant LA PTT Baseline POC ABG pH POC ABG pCO2 POC ABG pO2 Sodium Potassium Chloride Carbon Dioxide BUN Creatinine Glucose POC Glucose 132 H 64 L Lactic Acid 20.40 H* Uric Acid Calcium Phosphorus Iron TIBC Erythropoietin Ferritin Total Bilirubin Direct Bilirubin AST ALT Alkaline Phosphatase Lactate Dehydrogenase C-Reactive Protein Serum Total Protein Total Protein Albumin Ksgum-3-Xnuonrlch Abnorm Protein Band 1 PEP Interpretation Crossmatch 10/15/16 10/15/16 10/15/16 16:40 17:00 17:10 WBC RBC Hgb Hct MCV MCHC RDW Plt Count Seg Neuts % (Manual) Lymphocytes % (Manual) Nucleated RBC % Seg Neutrophils # Man Lymphocytes # (Manual) Haptoglobin PT INR Fibrinogen Lupus Anticoagulant LA PTT Baseline POC ABG pH 7.323 L POC ABG pCO2 25.8 L POC ABG pO2 135 H Sodium Potassium Chloride Carbon Dioxide BUN Creatinine Glucose POC Glucose 159 H Lactic Acid 20.20 H* Uric Acid Calcium Phosphorus Iron TIBC Erythropoietin Ferritin Total Bilirubin Direct Bilirubin AST ALT Alkaline Phosphatase Lactate Dehydrogenase C-Reactive Protein Serum Total Protein Total Protein Albumin Befhp-9-Hnlfwaera Abnorm Protein Band 1 PEP Interpretation Crossmatch 10/15/16 10/15/16 10/15/16 17:46 17:53 18:45 WBC RBC Hgb Hct MCV MCHC RDW Plt Count Seg Neuts % (Manual) Lymphocytes % (Manual) Nucleated RBC % Seg Neutrophils # Man Lymphocytes # (Manual) Haptoglobin PT INR Fibrinogen Lupus Anticoagulant LA PTT Baseline POC ABG pH POC ABG pCO2 POC ABG pO2 Sodium Potassium Chloride Carbon Dioxide BUN Creatinine Glucose POC Glucose 126 H 143 H Lactic Acid 21.40 H* Uric Acid Calcium Phosphorus Iron TIBC Erythropoietin Ferritin Total Bilirubin Direct Bilirubin AST ALT Alkaline Phosphatase Lactate Dehydrogenase C-Reactive Protein Serum Total Protein Total Protein Albumin Vcvng-6-Jtapdyshu Abnorm Protein Band 1 PEP Interpretation Crossmatch 10/15/16 10/15/16 10/16/16 20:03 22:59 00:06 WBC RBC Hgb Hct MCV MCHC RDW Plt Count Seg Neuts % (Manual) Lymphocytes % (Manual) Nucleated RBC % Seg Neutrophils # Man Lymphocytes # (Manual) Haptoglobin PT INR Fibrinogen Lupus Anticoagulant LA PTT Baseline POC ABG pH POC ABG pCO2 POC ABG pO2 Sodium Potassium Chloride Carbon Dioxide BUN Creatinine Glucose POC Glucose 66 L 53 L 126 H Lactic Acid Uric Acid Calcium Phosphorus Iron TIBC Erythropoietin Ferritin Total Bilirubin Direct Bilirubin AST ALT Alkaline Phosphatase Lactate Dehydrogenase C-Reactive Protein Serum Total Protein Total Protein Albumin Bmrqf-7-Pchyvkgmu Abnorm Protein Band 1 PEP Interpretation Crossmatch 10/16/16 10/16/16 10/16/16 01:03 03:55 04:00 WBC RBC Hgb Hct MCV MCHC RDW Plt Count Seg Neuts % (Manual) Lymphocytes % (Manual) Nucleated RBC % Seg Neutrophils # Man Lymphocytes # (Manual) Haptoglobin PT INR Fibrinogen Lupus Anticoagulant LA PTT Baseline POC ABG pH POC ABG pCO2 POC ABG pO2 Sodium Potassium Chloride Carbon Dioxide BUN Creatinine Glucose POC Glucose 107 H 260 H Lactic Acid 18.00 H* Uric Acid Calcium Phosphorus Iron TIBC Erythropoietin Ferritin Total Bilirubin Direct Bilirubin AST ALT Alkaline Phosphatase Lactate Dehydrogenase C-Reactive Protein Serum Total Protein Total Protein Albumin Gxitx-4-Bsnzizfkp Abnorm Protein Band 1 PEP Interpretation Crossmatch 10/16/16 10/16/16 10/16/16 04:03 07:58 08:34 WBC RBC Hgb Hct MCV MCHC RDW Plt Count Seg Neuts % (Manual) Lymphocytes % (Manual) Nucleated RBC % Seg Neutrophils # Man Lymphocytes # (Manual) Haptoglobin PT INR Fibrinogen Lupus Anticoagulant LA PTT Baseline POC ABG pH 7.527 H POC ABG pCO2 32.9 L POC ABG pO2 119 H Sodium Potassium Chloride Carbon Dioxide BUN Creatinine Glucose POC Glucose 120 H 66 L Lactic Acid Uric Acid Calcium Phosphorus Iron TIBC Erythropoietin Ferritin Total Bilirubin Direct Bilirubin AST ALT Alkaline Phosphatase Lactate Dehydrogenase C-Reactive Protein Serum Total Protein Total Protein Albumin Lwwce-9-Kqvjzbrtt Abnorm Protein Band 1 PEP Interpretation Crossmatch 10/16/16 10/16/16 10/16/16 09:13 10:06 10:57 WBC RBC Hgb Hct MCV MCHC RDW Plt Count Seg Neuts % (Manual) Lymphocytes % (Manual) Nucleated RBC % Seg Neutrophils # Man Lymphocytes # (Manual) Haptoglobin PT INR Fibrinogen Lupus Anticoagulant LA PTT Baseline POC ABG pH POC ABG pCO2 POC ABG pO2 Sodium Potassium Chloride Carbon Dioxide BUN Creatinine Glucose POC Glucose 147 H 137 H 140 H Lactic Acid Uric Acid Calcium Phosphorus Iron TIBC Erythropoietin Ferritin Total Bilirubin Direct Bilirubin AST ALT Alkaline Phosphatase Lactate Dehydrogenase C-Reactive Protein Serum Total Protein Total Protein Albumin Lelol-0-Hpyxlpzqk Abnorm Protein Band 1 PEP Interpretation Crossmatch 10/16/16 10/16/16 10/16/16 11:15 11:15 11:15 WBC 25.8 H RBC 2.30 L Hgb 7.0 L Hct 22.3 L MCV 97 H MCHC 31 L RDW 21.2 H Plt Count 42 L Seg Neuts % (Manual) Lymphocytes % (Manual) 3.0 L Nucleated RBC % 2.0 H Seg Neutrophils # Man 11.1 H Lymphocytes # (Manual) 0.8 L Haptoglobin PT INR Fibrinogen Lupus Anticoagulant LA PTT Baseline POC ABG pH POC ABG pCO2 POC ABG pO2 Sodium Potassium Chloride 81.7 L Carbon Dioxide 13 L D BUN 61 H Creatinine 6.2 H Glucose 171 H POC Glucose Lactic Acid 22.70 H* Uric Acid Calcium 7.1 L Phosphorus 9.10 H Iron TIBC Erythropoietin Ferritin Total Bilirubin Direct Bilirubin AST ALT Alkaline Phosphatase Lactate Dehydrogenase C-Reactive Protein Serum Total Protein Total Protein Albumin Fuixu-9-Yfnfcmbbv Abnorm Protein Band 1 PEP Interpretation Crossmatch 10/16/16 10/16/16 10/16/16 15:10 15:50 18:11 WBC RBC Hgb Hct MCV MCHC RDW Plt Count Seg Neuts % (Manual) Lymphocytes % (Manual) Nucleated RBC % Seg Neutrophils # Man Lymphocytes # (Manual) Haptoglobin PT INR Fibrinogen Lupus Anticoagulant LA PTT Baseline POC ABG pH POC ABG pCO2 POC ABG pO2 Sodium Potassium Chloride Carbon Dioxide BUN Creatinine Glucose POC Glucose 47 L 164 H 58 L Lactic Acid Uric Acid Calcium Phosphorus Iron TIBC Erythropoietin Ferritin Total Bilirubin Direct Bilirubin AST ALT Alkaline Phosphatase Lactate Dehydrogenase C-Reactive Protein Serum Total Protein Total Protein Albumin Gykzl-3-Hfgkxskao Abnorm Protein Band 1 PEP Interpretation Crossmatch 10/16/16 10/16/16 10/17/16 18:26 21:06 00:06 WBC RBC Hgb Hct MCV MCHC RDW Plt Count Seg Neuts % (Manual) Lymphocytes % (Manual) Nucleated RBC % Seg Neutrophils # Man Lymphocytes # (Manual) Haptoglobin PT INR Fibrinogen Lupus Anticoagulant LA PTT Baseline POC ABG pH POC ABG pCO2 POC ABG pO2 489 H Sodium Potassium Chloride Carbon Dioxide BUN Creatinine Glucose POC Glucose 52 L 120 H Lactic Acid Uric Acid Calcium Phosphorus Iron TIBC Erythropoietin Ferritin Total Bilirubin Direct Bilirubin AST ALT Alkaline Phosphatase Lactate Dehydrogenase C-Reactive Protein Serum Total Protein Total Protein Albumin Momxj-3-Ehchbaqhy Abnorm Protein Band 1 PEP Interpretation Crossmatch 10/17/16 10/17/16 10/17/16 04:55 04:55 05:04 WBC 25.5 H RBC 2.23 L Hgb 6.6 L Hct 21.2 L MCV 95 H MCHC 31 L RDW 20.5 H Plt Count 35 L Seg Neuts % (Manual) 79.0 H Lymphocytes % (Manual) 0 L Nucleated RBC % Seg Neutrophils # Man 20.1 H Lymphocytes # (Manual) 0.0 L Haptoglobin PT INR Fibrinogen Lupus Anticoagulant LA PTT Baseline POC ABG pH POC ABG pCO2 27.2 L POC ABG pO2 162 H Sodium Potassium Chloride 91.5 L Carbon Dioxide 16 L BUN 45 H Creatinine 4.5 H Glucose 103 H POC Glucose Lactic Acid Uric Acid Calcium 6.9 L Phosphorus 5.80 H D Iron TIBC Erythropoietin Ferritin Total Bilirubin Direct Bilirubin AST ALT Alkaline Phosphatase Lactate Dehydrogenase C-Reactive Protein Serum Total Protein Total Protein Albumin Jmhzt-3-Hnbhbnxjs Abnorm Protein Band 1 PEP Interpretation Crossmatch 10/17/16 10/17/16 10/17/16 07:59 09:04 10:04 WBC RBC Hgb Hct MCV MCHC RDW Plt Count Seg Neuts % (Manual) Lymphocytes % (Manual) Nucleated RBC % Seg Neutrophils # Man Lymphocytes # (Manual) Haptoglobin PT INR Fibrinogen Lupus Anticoagulant LA PTT Baseline POC ABG pH POC ABG pCO2 POC ABG pO2 Sodium Potassium Chloride Carbon Dioxide BUN Creatinine Glucose POC Glucose 65 L 118 H Lactic Acid Uric Acid Calcium Phosphorus Iron TIBC Erythropoietin Ferritin Total Bilirubin Direct Bilirubin AST ALT Alkaline Phosphatase Lactate Dehydrogenase C-Reactive Protein Serum Total Protein Total Protein Albumin Unfun-7-Uudwyhklw Abnorm Protein Band 1 PEP Interpretation Crossmatch See Detail 10/17/16 10/17/16 10/17/16 11:52 13:08 15:42 WBC RBC Hgb Hct MCV MCHC RDW Plt Count Seg Neuts % (Manual) Lymphocytes % (Manual) Nucleated RBC % Seg Neutrophils # Man Lymphocytes # (Manual) Haptoglobin PT INR Fibrinogen Lupus Anticoagulant LA PTT Baseline POC ABG pH POC ABG pCO2 POC ABG pO2 Sodium Potassium Chloride Carbon Dioxide BUN Creatinine Glucose POC Glucose 125 H 106 H 55 L Lactic Acid Uric Acid Calcium Phosphorus Iron TIBC Erythropoietin Ferritin Total Bilirubin Direct Bilirubin AST ALT Alkaline Phosphatase Lactate Dehydrogenase C-Reactive Protein Serum Total Protein Total Protein Albumin Dzgcf-2-Ayfnfmiow Abnorm Protein Band 1 PEP Interpretation Crossmatch 10/17/16 10/17/16 10/17/16 17:39 20:37 21:02 WBC RBC Hgb Hct MCV MCHC RDW Plt Count Seg Neuts % (Manual) Lymphocytes % (Manual) Nucleated RBC % Seg Neutrophils # Man Lymphocytes # (Manual) Haptoglobin PT INR Fibrinogen Lupus Anticoagulant LA PTT Baseline POC ABG pH POC ABG pCO2 28.2 L POC ABG pO2 Sodium Potassium Chloride Carbon Dioxide BUN Creatinine Glucose POC Glucose < 40 L 106 H Lactic Acid Uric Acid Calcium Phosphorus Iron TIBC Erythropoietin Ferritin Total Bilirubin Direct Bilirubin AST ALT Alkaline Phosphatase Lactate Dehydrogenase C-Reactive Protein Serum Total Protein Total Protein Albumin Vgeqy-7-Xpaajqcga Abnorm Protein Band 1 PEP Interpretation Crossmatch 10/17/16 10/17/16 10/18/16 22:18 23:14 00:28 WBC RBC Hgb Hct MCV MCHC RDW Plt Count Seg Neuts % (Manual) Lymphocytes % (Manual) Nucleated RBC % Seg Neutrophils # Man Lymphocytes # (Manual) Haptoglobin PT INR Fibrinogen Lupus Anticoagulant LA PTT Baseline POC ABG pH POC ABG pCO2 POC ABG pO2 Sodium Potassium Chloride Carbon Dioxide BUN Creatinine Glucose POC Glucose 111 H 118 H 112 H Lactic Acid Uric Acid Calcium Phosphorus Iron TIBC Erythropoietin Ferritin Total Bilirubin Direct Bilirubin AST ALT Alkaline Phosphatase Lactate Dehydrogenase C-Reactive Protein Serum Total Protein Total Protein Albumin Oxhbm-8-Prpfwhflh Abnorm Protein Band 1 PEP Interpretation Crossmatch 10/18/16 10/18/16 10/18/16 05:00 05:00 05:15 WBC 27.3 H RBC 2.75 L Hgb 7.9 L Hct 25.3 L MCV MCHC 31 L RDW 20.7 H Plt Count 31 L Seg Neuts % (Manual) 87.0 H Lymphocytes % (Manual) 1.0 L Nucleated RBC % 1.0 H Seg Neutrophils # Man 23.8 H Lymphocytes # (Manual) 0.3 L Haptoglobin PT INR Fibrinogen Lupus Anticoagulant LA PTT Baseline POC ABG pH 7.466 H POC ABG pCO2 25.1 L POC ABG pO2 Sodium Potassium Chloride 88.7 L Carbon Dioxide 18 L BUN 66 H Creatinine 4.7 H Glucose POC Glucose Lactic Acid Uric Acid Calcium 6.1 L Phosphorus 7.30 H D Iron TIBC Erythropoietin Ferritin Total Bilirubin Direct Bilirubin AST ALT Alkaline Phosphatase Lactate Dehydrogenase C-Reactive Protein Serum Total Protein Total Protein Albumin Mqqzw-9-Iftdbnfbp Abnorm Protein Band 1 PEP Interpretation Crossmatch 10/18/16 10/18/16 10/18/16 07:15 07:44 09:07 WBC RBC Hgb Hct MCV MCHC RDW Plt Count Seg Neuts % (Manual) Lymphocytes % (Manual) Nucleated RBC % Seg Neutrophils # Man Lymphocytes # (Manual) Haptoglobin PT INR Fibrinogen Lupus Anticoagulant LA PTT Baseline POC ABG pH POC ABG pCO2 POC ABG pO2 Sodium Potassium Chloride Carbon Dioxide BUN Creatinine Glucose POC Glucose 64 L 156 H 117 H Lactic Acid Uric Acid Calcium Phosphorus Iron TIBC Erythropoietin Ferritin Total Bilirubin Direct Bilirubin AST ALT Alkaline Phosphatase Lactate Dehydrogenase C-Reactive Protein Serum Total Protein Total Protein Albumin Qrnkt-0-Gdfxfdyzt Abnorm Protein Band 1 PEP Interpretation Crossmatch 10/18/16 10/18/16 10/18/16 09:15 14:00 18:21 WBC RBC Hgb Hct MCV MCHC RDW Plt Count Seg Neuts % (Manual) Lymphocytes % (Manual) Nucleated RBC % Seg Neutrophils # Man Lymphocytes # (Manual) Haptoglobin PT INR Fibrinogen Lupus Anticoagulant LA PTT Baseline POC ABG pH POC ABG pCO2 POC ABG pO2 Sodium Potassium Chloride Carbon Dioxide BUN Creatinine Glucose POC Glucose 106 H 112 H Lactic Acid 14.30 H* Uric Acid Calcium Phosphorus Iron TIBC Erythropoietin Ferritin Total Bilirubin Direct Bilirubin AST ALT Alkaline Phosphatase Lactate Dehydrogenase C-Reactive Protein Serum Total Protein Total Protein Albumin Miovn-6-Cmqszcwkl Abnorm Protein Band 1 PEP Interpretation Crossmatch 10/18/16 10/18/16 10/18/16 19:58 20:55 22:11 WBC RBC Hgb Hct MCV MCHC RDW Plt Count Seg Neuts % (Manual) Lymphocytes % (Manual) Nucleated RBC % Seg Neutrophils # Man Lymphocytes # (Manual) Haptoglobin PT INR Fibrinogen Lupus Anticoagulant LA PTT Baseline POC ABG pH POC ABG pCO2 POC ABG pO2 Sodium Potassium Chloride Carbon Dioxide BUN Creatinine Glucose POC Glucose 127 H 125 H 159 H Lactic Acid Uric Acid Calcium Phosphorus Iron TIBC Erythropoietin Ferritin Total Bilirubin Direct Bilirubin AST ALT Alkaline Phosphatase Lactate Dehydrogenase C-Reactive Protein Serum Total Protein Total Protein Albumin Dweob-9-Ziwypzjlw Abnorm Protein Band 1 PEP Interpretation Crossmatch 10/18/16 10/18/16 10/19/16 23:11 23:57 01:06 WBC RBC Hgb Hct MCV MCHC RDW Plt Count Seg Neuts % (Manual) Lymphocytes % (Manual) Nucleated RBC % Seg Neutrophils # Man Lymphocytes # (Manual) Haptoglobin PT INR Fibrinogen Lupus Anticoagulant LA PTT Baseline POC ABG pH POC ABG pCO2 POC ABG pO2 Sodium Potassium Chloride Carbon Dioxide BUN Creatinine Glucose POC Glucose 122 H 137 H 162 H Lactic Acid Uric Acid Calcium Phosphorus Iron TIBC Erythropoietin Ferritin Total Bilirubin Direct Bilirubin AST ALT Alkaline Phosphatase Lactate Dehydrogenase C-Reactive Protein Serum Total Protein Total Protein Albumin Jvytd-0-Nunecfbwm Abnorm Protein Band 1 PEP Interpretation Crossmatch 10/19/16 10/19/16 10/19/16 01:59 03:07 04:10 WBC RBC Hgb Hct MCV MCHC RDW Plt Count Seg Neuts % (Manual) Lymphocytes % (Manual) Nucleated RBC % Seg Neutrophils # Man Lymphocytes # (Manual) Haptoglobin PT INR Fibrinogen Lupus Anticoagulant LA PTT Baseline POC ABG pH POC ABG pCO2 POC ABG pO2 Sodium Potassium Chloride Carbon Dioxide BUN Creatinine Glucose POC Glucose 154 H 178 H 186 H Lactic Acid Uric Acid Calcium Phosphorus Iron TIBC Erythropoietin Ferritin Total Bilirubin Direct Bilirubin AST ALT Alkaline Phosphatase Lactate Dehydrogenase C-Reactive Protein Serum Total Protein Total Protein Albumin Tshio-4-Ruusjnnvg Abnorm Protein Band 1 PEP Interpretation Crossmatch 10/19/16 10/19/16 10/19/16 05:14 05:15 05:47 WBC RBC Hgb Hct MCV MCHC RDW Plt Count Seg Neuts % (Manual) Lymphocytes % (Manual) Nucleated RBC % Seg Neutrophils # Man Lymphocytes # (Manual) Haptoglobin PT INR Fibrinogen Lupus Anticoagulant LA PTT Baseline POC ABG pH 7.581 H POC ABG pCO2 22.9 L POC ABG pO2 58 L Sodium Potassium Chloride Carbon Dioxide BUN Creatinine Glucose POC Glucose 197 H 204 H Lactic Acid Uric Acid Calcium Phosphorus Iron TIBC Erythropoietin Ferritin Total Bilirubin Direct Bilirubin AST ALT Alkaline Phosphatase Lactate Dehydrogenase C-Reactive Protein Serum Total Protein Total Protein Albumin Hekcg-1-Iirhlhqmc Abnorm Protein Band 1 PEP Interpretation Crossmatch 10/19/16 10/19/16 10/19/16 06:00 06:00 07:51 WBC 23.0 H RBC 2.54 L Hgb 7.5 L Hct 23.0 L MCV MCHC RDW 20.7 H Plt Count 25 L Seg Neuts % (Manual) 91.0 H Lymphocytes % (Manual) 2.0 L Nucleated RBC % 1.0 H Seg Neutrophils # Man 20.9 H Lymphocytes # (Manual) 0.5 L Haptoglobin PT INR Fibrinogen Lupus Anticoagulant LA PTT Baseline POC ABG pH POC ABG pCO2 POC ABG pO2 Sodium Potassium Chloride 88.7 L Carbon Dioxide 21 L BUN 70 H Creatinine 3.9 H Glucose 189 H POC Glucose 145 H Lactic Acid Uric Acid Calcium 5.6 L* Phosphorus 6.30 H Iron TIBC Erythropoietin Ferritin Total Bilirubin Direct Bilirubin AST ALT Alkaline Phosphatase Lactate Dehydrogenase C-Reactive Protein Serum Total Protein Total Protein Albumin Wtcge-0-Raxahmqli Abnorm Protein Band 1 PEP Interpretation Crossmatch 10/19/16 10/19/16 10/19/16 09:14 10:01 12:14 WBC RBC Hgb Hct MCV MCHC RDW Plt Count Seg Neuts % (Manual) Lymphocytes % (Manual) Nucleated RBC % Seg Neutrophils # Man Lymphocytes # (Manual) Haptoglobin PT INR Fibrinogen Lupus Anticoagulant LA PTT Baseline POC ABG pH POC ABG pCO2 POC ABG pO2 Sodium Potassium Chloride Carbon Dioxide BUN Creatinine Glucose POC Glucose 173 H 153 H 180 H Lactic Acid Uric Acid Calcium Phosphorus Iron TIBC Erythropoietin Ferritin Total Bilirubin Direct Bilirubin AST ALT Alkaline Phosphatase Lactate Dehydrogenase C-Reactive Protein Serum Total Protein Total Protein Albumin Scdmv-3-Ycsybjnbi Abnorm Protein Band 1 PEP Interpretation Crossmatch 10/19/16 10/19/16 10/19/16 14:15 16:38 20:27 WBC RBC Hgb Hct MCV MCHC RDW Plt Count Seg Neuts % (Manual) Lymphocytes % (Manual) Nucleated RBC % Seg Neutrophils # Man Lymphocytes # (Manual) Haptoglobin PT INR Fibrinogen Lupus Anticoagulant LA PTT Baseline POC ABG pH POC ABG pCO2 POC ABG pO2 Sodium Potassium Chloride Carbon Dioxide BUN Creatinine Glucose POC Glucose 194 H 202 H Lactic Acid Uric Acid Calcium Phosphorus Iron TIBC Erythropoietin 148.2 H Ferritin Total Bilirubin Direct Bilirubin AST ALT Alkaline Phosphatase Lactate Dehydrogenase C-Reactive Protein Serum Total Protein Total Protein Albumin Pfecb-4-Ogouklgmw Abnorm Protein Band 1 PEP Interpretation Crossmatch 10/19/16 10/20/16 10/20/16 23:27 04:06 05:00 WBC RBC Hgb Hct MCV MCHC RDW Plt Count Seg Neuts % (Manual) Lymphocytes % (Manual) Nucleated RBC % Seg Neutrophils # Man Lymphocytes # (Manual) Haptoglobin PT INR Fibrinogen Lupus Anticoagulant LA PTT Baseline POC ABG pH POC ABG pCO2 POC ABG pO2 Sodium Potassium Chloride 88.8 L Carbon Dioxide BUN 93 H Creatinine 4.3 H Glucose 204 H POC Glucose 201 H 200 H Lactic Acid Uric Acid Calcium 5.2 L* Phosphorus Iron TIBC Erythropoietin Ferritin Total Bilirubin Direct Bilirubin AST ALT Alkaline Phosphatase Lactate Dehydrogenase C-Reactive Protein Serum Total Protein Total Protein Albumin Rmjsk-6-Wioozppnz Abnorm Protein Band 1 PEP Interpretation Crossmatch 10/20/16 10/20/16 10/20/16 05:16 06:00 07:43 WBC 24.8 H RBC 2.52 L Hgb 7.4 L Hct 22.9 L MCV MCHC RDW 19.9 H Plt Count 23 L Seg Neuts % (Manual) 97.0 H Lymphocytes % (Manual) 1.0 L Nucleated RBC % 9.0 H Seg Neutrophils # Man 24.1 H Lymphocytes # (Manual) 0.2 L Haptoglobin PT INR Fibrinogen Lupus Anticoagulant LA PTT Baseline POC ABG pH 7.463 H POC ABG pCO2 POC ABG pO2 157 H Sodium Potassium Chloride Carbon Dioxide BUN Creatinine Glucose POC Glucose 192 H Lactic Acid Uric Acid Calcium Phosphorus Iron TIBC Erythropoietin Ferritin Total Bilirubin Direct Bilirubin AST ALT Alkaline Phosphatase Lactate Dehydrogenase C-Reactive Protein Serum Total Protein Total Protein Albumin Tiskg-4-Qudskszef Abnorm Protein Band 1 PEP Interpretation Crossmatch 10/20/16 10/20/16 10/20/16 12:11 15:32 21:23 WBC RBC Hgb Hct MCV MCHC RDW Plt Count Seg Neuts % (Manual) Lymphocytes % (Manual) Nucleated RBC % Seg Neutrophils # Man Lymphocytes # (Manual) Haptoglobin PT INR Fibrinogen Lupus Anticoagulant LA PTT Baseline POC ABG pH POC ABG pCO2 POC ABG pO2 Sodium Potassium Chloride Carbon Dioxide BUN Creatinine Glucose POC Glucose 172 H 216 H 271 H Lactic Acid Uric Acid Calcium Phosphorus Iron TIBC Erythropoietin Ferritin Total Bilirubin Direct Bilirubin AST ALT Alkaline Phosphatase Lactate Dehydrogenase C-Reactive Protein Serum Total Protein Total Protein Albumin Tnira-9-Rronfskja Abnorm Protein Band 1 PEP Interpretation Crossmatch 10/20/16 10/21/16 10/21/16 23:49 03:53 04:58 WBC RBC Hgb Hct MCV MCHC RDW Plt Count Seg Neuts % (Manual) Lymphocytes % (Manual) Nucleated RBC % Seg Neutrophils # Man Lymphocytes # (Manual) Haptoglobin PT INR Fibrinogen Lupus Anticoagulant LA PTT Baseline POC ABG pH 7.459 H POC ABG pCO2 POC ABG pO2 113 H Sodium 136 L Potassium 2.8 L* D Chloride 91.6 L Carbon Dioxide BUN 62 H Creatinine 2.8 H Glucose 236 H POC Glucose 317 H Lactic Acid Uric Acid Calcium 6.2 L D Phosphorus Iron TIBC Erythropoietin Ferritin Total Bilirubin 2.70 H Direct Bilirubin AST 73 H ALT 57 H Alkaline Phosphatase 158 H Lactate Dehydrogenase C-Reactive Protein Serum Total Protein Total Protein 4.9 L Albumin 2.6 L Twvzh-3-Uxkybhsku Abnorm Protein Band 1 PEP Interpretation Crossmatch 05/10/21/16 10/21/16 05:25 07:11 10:30 WBC 28.1 H RBC 2.36 L Hgb 7.0 L Hct 21.6 L MCV MCHC RDW 20.0 H Plt Count 14 L* Seg Neuts % (Manual) 92.0 H Lymphocytes % (Manual) 0 L Nucleated RBC % 5.0 H Seg Neutrophils # Man 25.9 H Lymphocytes # (Manual) 0.0 L Haptoglobin PT INR Fibrinogen Lupus Anticoagulant LA PTT Baseline POC ABG pH POC ABG pCO2 POC ABG pO2 Sodium Potassium Chloride Carbon Dioxide BUN Creatinine Glucose POC Glucose 237 H 206 H Lactic Acid Uric Acid Calcium Phosphorus Iron TIBC Erythropoietin Ferritin Total Bilirubin Direct Bilirubin AST ALT Alkaline Phosphatase Lactate Dehydrogenase C-Reactive Protein Serum Total Protein Total Protein Albumin Srhib-4-Phpykymtz Abnorm Protein Band 1 PEP Interpretation Crossmatch 10/21/16 10/21/16 10/21/16 11:25 12:31 16:33 WBC RBC Hgb Hct MCV MCHC RDW Plt Count Seg Neuts % (Manual) Lymphocytes % (Manual) Nucleated RBC % Seg Neutrophils # Man Lymphocytes # (Manual) Haptoglobin PT 49.1 H INR 5.28 H* Fibrinogen Lupus Anticoagulant LA PTT Baseline POC ABG pH POC ABG pCO2 POC ABG pO2 Sodium Potassium Chloride Carbon Dioxide BUN Creatinine Glucose POC Glucose 145 H 151 H Lactic Acid Uric Acid Calcium Phosphorus Iron TIBC Erythropoietin Ferritin Total Bilirubin Direct Bilirubin AST ALT Alkaline Phosphatase Lactate Dehydrogenase C-Reactive Protein Serum Total Protein Total Protein Albumin Usmmb-1-Klicadzqx Abnorm Protein Band 1 PEP Interpretation Crossmatch 10/21/16 10/22/16 10/22/16 19:53 00:00 05:23 WBC RBC Hgb Hct MCV MCHC RDW Plt Count Seg Neuts % (Manual) Lymphocytes % (Manual) Nucleated RBC % Seg Neutrophils # Man Lymphocytes # (Manual) Haptoglobin PT INR Fibrinogen Lupus Anticoagulant LA PTT Baseline POC ABG pH POC ABG pCO2 POC ABG pO2 Sodium Potassium Chloride Carbon Dioxide BUN Creatinine Glucose POC Glucose 170 H 168 H 131 H Lactic Acid Uric Acid Calcium Phosphorus Iron TIBC Erythropoietin Ferritin Total Bilirubin Direct Bilirubin AST ALT Alkaline Phosphatase Lactate Dehydrogenase C-Reactive Protein Serum Total Protein Total Protein Albumin Aukgk-1-Jahizeynr Abnorm Protein Band 1 PEP Interpretation Crossmatch 10/22/16 10/22/16 10/22/16 05:25 05:35 13:03 WBC RBC Hgb Hct MCV MCHC RDW Plt Count Seg Neuts % (Manual) Lymphocytes % (Manual) Nucleated RBC % Seg Neutrophils # Man Lymphocytes # (Manual) Haptoglobin PT INR Fibrinogen Lupus Anticoagulant LA PTT Baseline POC ABG pH 7.462 H POC ABG pCO2 POC ABG pO2 Sodium 135 L Potassium 3.0 L Chloride 88.5 L Carbon Dioxide BUN 84 H Creatinine 3.4 H Glucose 124 H POC Glucose 164 H Lactic Acid Uric Acid Calcium 5.9 L* Phosphorus Iron TIBC Erythropoietin Ferritin Total Bilirubin 2.00 H Direct Bilirubin AST 85 H ALT Alkaline Phosphatase 199 H Lactate Dehydrogenase C-Reactive Protein Serum Total Protein Total Protein 5.0 L Albumin 2.5 L Kxhel-2-Xcnhuklhc Abnorm Protein Band 1 PEP Interpretation Crossmatch 10/22/16 10/22/16 10/23/16 17:14 23:16 04:47 WBC RBC Hgb Hct MCV MCHC RDW Plt Count Seg Neuts % (Manual) Lymphocytes % (Manual) Nucleated RBC % Seg Neutrophils # Man Lymphocytes # (Manual) Haptoglobin PT INR Fibrinogen Lupus Anticoagulant LA PTT Baseline POC ABG pH 7.476 H POC ABG pCO2 POC ABG pO2 108 H Sodium Potassium Chloride Carbon Dioxide BUN Creatinine Glucose POC Glucose 188 H 167 H Lactic Acid Uric Acid Calcium Phosphorus Iron TIBC Erythropoietin Ferritin Total Bilirubin Direct Bilirubin AST ALT Alkaline Phosphatase Lactate Dehydrogenase C-Reactive Protein Serum Total Protein Total Protein Albumin Dgcbf-7-Ypfxniaoc Abnorm Protein Band 1 PEP Interpretation Crossmatch 10/23/16 10/23/16 10/23/16 05:49 07:00 07:12 WBC 24.2 H RBC 2.27 L Hgb 7.0 L Hct 21.1 L MCV MCHC RDW 19.7 H Plt Count 35 L D Seg Neuts % (Manual) Lymphocytes % (Manual) Nucleated RBC % Seg Neutrophils # Man Lymphocytes # (Manual) Haptoglobin PT INR Fibrinogen Lupus Anticoagulant LA PTT Baseline POC ABG pH POC ABG pCO2 POC ABG pO2 Sodium Potassium 3.5 L Chloride 95.7 L Carbon Dioxide BUN 55 H Creatinine 2.7 H Glucose 103 H POC Glucose 106 H Lactic Acid Uric Acid Calcium 7.1 L D Phosphorus Iron TIBC Erythropoietin Ferritin Total Bilirubin Direct Bilirubin AST ALT Alkaline Phosphatase Lactate Dehydrogenase C-Reactive Protein Serum Total Protein Total Protein Albumin Evwoj-0-Hjjdadrcq Abnorm Protein Band 1 PEP Interpretation Crossmatch 10/24/16 10/24/16 10/24/16 00:12 05:16 07:00 WBC 17.9 H RBC 2.12 L Hgb 6.5 L Hct 19.9 L* MCV MCHC RDW 19.3 H Plt Count 44 L Seg Neuts % (Manual) Lymphocytes % (Manual) Nucleated RBC % Seg Neutrophils # Man Lymphocytes # (Manual) Haptoglobin PT INR Fibrinogen Lupus Anticoagulant LA PTT Baseline POC ABG pH POC ABG pCO2 POC ABG pO2 Sodium Potassium Chloride Carbon Dioxide BUN Creatinine Glucose POC Glucose 116 H 135 H Lactic Acid Uric Acid Calcium Phosphorus Iron TIBC Erythropoietin Ferritin Total Bilirubin Direct Bilirubin AST ALT Alkaline Phosphatase Lactate Dehydrogenase C-Reactive Protein Serum Total Protein Total Protein Albumin Ygmyi-2-Rrhyisziy Abnorm Protein Band 1 PEP Interpretation Crossmatch 10/24/16 10/24/16 10/24/16 07:00 11:45 12:12 WBC RBC Hgb Hct MCV MCHC RDW Plt Count Seg Neuts % (Manual) Lymphocytes % (Manual) Nucleated RBC % Seg Neutrophils # Man Lymphocytes # (Manual) Haptoglobin PT INR Fibrinogen Lupus Anticoagulant LA PTT Baseline POC ABG pH POC ABG pCO2 POC ABG pO2 Sodium Potassium Chloride 92.9 L Carbon Dioxide BUN 74 H Creatinine 3.3 H Glucose 136 H POC Glucose 177 H Lactic Acid Uric Acid Calcium 6.6 L Phosphorus Iron TIBC Erythropoietin Ferritin Total Bilirubin 2.10 H Direct Bilirubin AST 68 H ALT Alkaline Phosphatase 224 H Lactate Dehydrogenase C-Reactive Protein Serum Total Protein Total Protein 4.8 L Albumin 2.3 L Kbtcv-3-Nudjovexd Abnorm Protein Band 1 PEP Interpretation Crossmatch See Detail 10/24/16 10/24/16 10/24/16 16:30 16:30 17:28 WBC RBC Hgb Hct MCV MCHC RDW Plt Count Seg Neuts % (Manual) Lymphocytes % (Manual) Nucleated RBC % Seg Neutrophils # Man Lymphocytes # (Manual) Haptoglobin PT INR Fibrinogen Lupus Anticoagulant LA PTT Baseline POC ABG pH POC ABG pCO2 POC ABG pO2 Sodium Potassium Chloride Carbon Dioxide BUN Creatinine Glucose POC Glucose 128 H Lactic Acid 3.00 H* Uric Acid Calcium Phosphorus Iron TIBC Erythropoietin Ferritin Total Bilirubin Direct Bilirubin AST ALT Alkaline Phosphatase Lactate Dehydrogenase C-Reactive Protein 7.40 H Serum Total Protein Total Protein Albumin Ktvrj-4-Svqvzpjgn Abnorm Protein Band 1 PEP Interpretation Crossmatch 10/24/16 10/24/16 10/25/16 18:40 23:32 05:00 WBC 17.5 H RBC 2.99 L Hgb 9.1 L Hct 26.9 L D MCV MCHC RDW 17.7 H Plt Count 53 L Seg Neuts % (Manual) Lymphocytes % (Manual) Nucleated RBC % Seg Neutrophils # Man Lymphocytes # (Manual) Haptoglobin PT INR Fibrinogen Lupus Anticoagulant LA PTT Baseline POC ABG pH POC ABG pCO2 POC ABG pO2 Sodium Potassium Chloride Carbon Dioxide BUN Creatinine Glucose POC Glucose 140 H Lactic Acid 3.10 H* Uric Acid Calcium Phosphorus Iron TIBC Erythropoietin Ferritin Total Bilirubin Direct Bilirubin AST ALT Alkaline Phosphatase Lactate Dehydrogenase C-Reactive Protein Serum Total Protein Total Protein Albumin Znpkn-3-Zpohhbmmw Abnorm Protein Band 1 PEP Interpretation Crossmatch 10/25/16 10/25/16 10/25/16 05:00 05:22 11:58 WBC RBC Hgb Hct MCV MCHC RDW Plt Count Seg Neuts % (Manual) Lymphocytes % (Manual) Nucleated RBC % Seg Neutrophils # Man Lymphocytes # (Manual) Haptoglobin PT INR Fibrinogen Lupus Anticoagulant LA PTT Baseline POC ABG pH POC ABG pCO2 POC ABG pO2 Sodium Potassium Chloride 91.6 L Carbon Dioxide BUN 89 H Creatinine 3.9 H Glucose 150 H POC Glucose 164 H 189 H Lactic Acid Uric Acid Calcium 6.9 L Phosphorus Iron TIBC Erythropoietin Ferritin Total Bilirubin Direct Bilirubin AST ALT Alkaline Phosphatase Lactate Dehydrogenase C-Reactive Protein Serum Total Protein Total Protein Albumin Buywf-1-Mtdkuqvqi Abnorm Protein Band 1 PEP Interpretation Crossmatch 10/25/16 10/25/16 10/26/16 17:56 23:12 04:00 WBC RBC Hgb Hct MCV MCHC RDW Plt Count Seg Neuts % (Manual) Lymphocytes % (Manual) Nucleated RBC % Seg Neutrophils # Man Lymphocytes # (Manual) Haptoglobin PT INR Fibrinogen Lupus Anticoagulant LA PTT Baseline POC ABG pH POC ABG pCO2 POC ABG pO2 Sodium 135 L Potassium Chloride 90.7 L Carbon Dioxide BUN 64 H Creatinine 2.9 H Glucose 132 H POC Glucose 156 H 133 H Lactic Acid Uric Acid Calcium 7.3 L Phosphorus Iron TIBC Erythropoietin Ferritin Total Bilirubin Direct Bilirubin AST ALT Alkaline Phosphatase Lactate Dehydrogenase C-Reactive Protein Serum Total Protein Total Protein Albumin Zbczg-0-Xcgvdyzbt Abnorm Protein Band 1 PEP Interpretation Crossmatch 10/26/16 10/26/16 10/26/16 05:14 06:15 11:51 WBC 18.6 H RBC 3.15 L Hgb 9.6 L Hct 29.0 L MCV MCHC RDW 17.8 H Plt Count 71 L Seg Neuts % (Manual) 85.0 H Lymphocytes % (Manual) 1.0 L Nucleated RBC % Seg Neutrophils # Man 15.8 H Lymphocytes # (Manual) 0.2 L Haptoglobin PT INR Fibrinogen Lupus Anticoagulant LA PTT Baseline POC ABG pH POC ABG pCO2 POC ABG pO2 Sodium Potassium Chloride Carbon Dioxide BUN Creatinine Glucose POC Glucose 130 H 139 H Lactic Acid Uric Acid Calcium Phosphorus Iron TIBC Erythropoietin Ferritin Total Bilirubin Direct Bilirubin AST ALT Alkaline Phosphatase Lactate Dehydrogenase C-Reactive Protein Serum Total Protein Total Protein Albumin Elfgf-6-Uocsfkhor Abnorm Protein Band 1 PEP Interpretation Crossmatch 10/26/16 10/26/16 10/27/16 17:25 23:35 04:10 WBC 16.8 H RBC 3.38 L Hgb 10.1 L Hct 31.0 L MCV MCHC RDW 18.0 H Plt Count 77 L Seg Neuts % (Manual) 92.0 H Lymphocytes % (Manual) 1.0 L Nucleated RBC % 1.0 H Seg Neutrophils # Man 15.5 H Lymphocytes # (Manual) 0.2 L Haptoglobin PT INR Fibrinogen Lupus Anticoagulant LA PTT Baseline POC ABG pH POC ABG pCO2 POC ABG pO2 Sodium Potassium Chloride Carbon Dioxide BUN Creatinine Glucose POC Glucose 118 H 145 H Lactic Acid Uric Acid Calcium Phosphorus Iron TIBC Erythropoietin Ferritin Total Bilirubin Direct Bilirubin AST ALT Alkaline Phosphatase Lactate Dehydrogenase C-Reactive Protein Serum Total Protein Total Protein Albumin Vkyvw-3-Frpzjyliz Abnorm Protein Band 1 PEP Interpretation Crossmatch 10/27/16 10/27/16 10/27/16 04:10 05:53 08:14 WBC RBC Hgb Hct MCV MCHC RDW Plt Count Seg Neuts % (Manual) Lymphocytes % (Manual) Nucleated RBC % Seg Neutrophils # Man Lymphocytes # (Manual) Haptoglobin PT 23.0 H INR 2.03 H Fibrinogen Lupus Anticoagulant LA PTT Baseline POC ABG pH POC ABG pCO2 POC ABG pO2 Sodium Potassium Chloride 95.5 L Carbon Dioxide BUN 63 H Creatinine 2.8 H Glucose 112 H POC Glucose 127 H Lactic Acid Uric Acid Calcium 7.5 L Phosphorus Iron TIBC Erythropoietin Ferritin Total Bilirubin Direct Bilirubin AST ALT Alkaline Phosphatase Lactate Dehydrogenase C-Reactive Protein Serum Total Protein Total Protein Albumin Fcnad-8-Gcfwdqnna Abnorm Protein Band 1 PEP Interpretation Crossmatch 10/27/16 10/27/16 10/27/16 11:56 17:47 23:55 WBC RBC Hgb Hct MCV MCHC RDW Plt Count Seg Neuts % (Manual) Lymphocytes % (Manual) Nucleated RBC % Seg Neutrophils # Man Lymphocytes # (Manual) Haptoglobin PT INR Fibrinogen Lupus Anticoagulant LA PTT Baseline POC ABG pH POC ABG pCO2 POC ABG pO2 Sodium Potassium Chloride Carbon Dioxide BUN Creatinine Glucose POC Glucose 113 H 117 H 142 H Lactic Acid Uric Acid Calcium Phosphorus Iron TIBC Erythropoietin Ferritin Total Bilirubin Direct Bilirubin AST ALT Alkaline Phosphatase Lactate Dehydrogenase C-Reactive Protein Serum Total Protein Total Protein Albumin Jgmag-2-Uyaccwobl Abnorm Protein Band 1 PEP Interpretation Crossmatch 10/28/16 10/28/16 10/28/16 05:45 05:45 11:44 WBC 16.6 H RBC 3.18 L Hgb 9.5 L Hct 29.3 L MCV MCHC RDW 17.6 H Plt Count 83 L Seg Neuts % (Manual) 87.0 H Lymphocytes % (Manual) 3.0 L Nucleated RBC % Seg Neutrophils # Man 14.4 H Lymphocytes # (Manual) 0.5 L Haptoglobin PT INR Fibrinogen Lupus Anticoagulant LA PTT Baseline POC ABG pH POC ABG pCO2 POC ABG pO2 Sodium Potassium Chloride 94.6 L Carbon Dioxide 21 L BUN 90 H Creatinine 3.9 H Glucose 152 H POC Glucose 151 H Lactic Acid Uric Acid Calcium 6.9 L Phosphorus Iron TIBC Erythropoietin Ferritin Total Bilirubin Direct Bilirubin AST ALT Alkaline Phosphatase Lactate Dehydrogenase C-Reactive Protein Serum Total Protein Total Protein Albumin Txsdx-9-Rawmdcnfd Abnorm Protein Band 1 PEP Interpretation Crossmatch 10/28/16 10/28/16 10/29/16 17:31 23:47 04:53 WBC RBC Hgb Hct MCV MCHC RDW Plt Count Seg Neuts % (Manual) Lymphocytes % (Manual) Nucleated RBC % Seg Neutrophils # Man Lymphocytes # (Manual) Haptoglobin PT INR Fibrinogen Lupus Anticoagulant LA PTT Baseline POC ABG pH POC ABG pCO2 POC ABG pO2 Sodium Potassium Chloride Carbon Dioxide BUN Creatinine Glucose POC Glucose 184 H 124 H 153 H Lactic Acid Uric Acid Calcium Phosphorus Iron TIBC Erythropoietin Ferritin Total Bilirubin Direct Bilirubin AST ALT Alkaline Phosphatase Lactate Dehydrogenase C-Reactive Protein Serum Total Protein Total Protein Albumin Ohedy-0-Ddogjqylv Abnorm Protein Band 1 PEP Interpretation Crossmatch 10/29/16 10/29/16 10/29/16 06:15 06:15 10:58 WBC 14.1 H RBC 3.15 L Hgb 9.6 L Hct 29.1 L MCV MCHC RDW 17.9 H Plt Count 73 L Seg Neuts % (Manual) 93.0 H Lymphocytes % (Manual) 4.0 L Nucleated RBC % Seg Neutrophils # Man 13.1 H Lymphocytes # (Manual) 0.6 L Haptoglobin PT INR Fibrinogen Lupus Anticoagulant LA PTT Baseline POC ABG pH POC ABG pCO2 POC ABG pO2 Sodium Potassium Chloride Carbon Dioxide BUN 58 H Creatinine 2.7 H Glucose 146 H POC Glucose 134 H Lactic Acid Uric Acid Calcium 7.4 L Phosphorus 5.00 H Iron TIBC Erythropoietin Ferritin Total Bilirubin Direct Bilirubin AST ALT Alkaline Phosphatase Lactate Dehydrogenase C-Reactive Protein Serum Total Protein Total Protein Albumin Pvnbd-8-Liujiludm Abnorm Protein Band 1 PEP Interpretation Crossmatch 10/29/16 10/29/16 10/30/16 17:06 23:28 05:16 WBC RBC Hgb Hct MCV MCHC RDW Plt Count Seg Neuts % (Manual) Lymphocytes % (Manual) Nucleated RBC % Seg Neutrophils # Man Lymphocytes # (Manual) Haptoglobin PT INR Fibrinogen Lupus Anticoagulant LA PTT Baseline POC ABG pH POC ABG pCO2 POC ABG pO2 Sodium Potassium Chloride Carbon Dioxide BUN Creatinine Glucose POC Glucose 158 H 133 H 147 H Lactic Acid Uric Acid Calcium Phosphorus Iron TIBC Erythropoietin Ferritin Total Bilirubin Direct Bilirubin AST ALT Alkaline Phosphatase Lactate Dehydrogenase C-Reactive Protein Serum Total Protein Total Protein Albumin Bzrpa-2-Bebhmhqim Abnorm Protein Band 1 PEP Interpretation Crossmatch 10/30/16 10/30/16 10/30/16 06:35 06:35 12:08 WBC 13.0 H RBC 3.08 L Hgb 9.3 L Hct 28.7 L MCV MCHC RDW 18.4 H Plt Count 73 L Seg Neuts % (Manual) Lymphocytes % (Manual) Nucleated RBC % Seg Neutrophils # Man Lymphocytes # (Manual) Haptoglobin PT INR Fibrinogen Lupus Anticoagulant LA PTT Baseline POC ABG pH POC ABG pCO2 POC ABG pO2 Sodium Potassium Chloride Carbon Dioxide BUN 86 H Creatinine 3.5 H Glucose 132 H POC Glucose 134 H Lactic Acid Uric Acid Calcium 7.1 L Phosphorus 5.90 H Iron TIBC Erythropoietin Ferritin Total Bilirubin Direct Bilirubin AST ALT Alkaline Phosphatase Lactate Dehydrogenase C-Reactive Protein Serum Total Protein Total Protein Albumin Krpwh-6-Esfyhuvvt Abnorm Protein Band 1 PEP Interpretation Crossmatch 10/30/16 10/30/16 10/31/16 18:02 23:31 05:21 WBC RBC Hgb Hct MCV MCHC RDW Plt Count Seg Neuts % (Manual) Lymphocytes % (Manual) Nucleated RBC % Seg Neutrophils # Man Lymphocytes # (Manual) Haptoglobin PT INR Fibrinogen Lupus Anticoagulant LA PTT Baseline POC ABG pH POC ABG pCO2 POC ABG pO2 Sodium Potassium Chloride Carbon Dioxide BUN Creatinine Glucose POC Glucose 142 H 152 H 152 H Lactic Acid Uric Acid Calcium Phosphorus Iron TIBC Erythropoietin Ferritin Total Bilirubin Direct Bilirubin AST ALT Alkaline Phosphatase Lactate Dehydrogenase C-Reactive Protein Serum Total Protein Total Protein Albumin Fpovy-9-Oubpvutyq Abnorm Protein Band 1 PEP Interpretation Crossmatch 10/31/16 10/31/16 10/31/16 06:21 06:21 12:12 WBC 11.9 H RBC 2.82 L Hgb 8.6 L Hct 26.4 L MCV MCHC RDW 17.8 H Plt Count 56 L Seg Neuts % (Manual) Lymphocytes % (Manual) 0 L Nucleated RBC % Seg Neutrophils # Man 10.9 H Lymphocytes # (Manual) 0.0 L Haptoglobin PT INR Fibrinogen Lupus Anticoagulant LA PTT Baseline POC ABG pH POC ABG pCO2 POC ABG pO2 Sodium Potassium Chloride Carbon Dioxide 21 L BUN 107 H Creatinine 4.2 H Glucose 137 H POC Glucose 142 H Lactic Acid Uric Acid Calcium 7.2 L Phosphorus 6.50 H Iron TIBC Erythropoietin Ferritin Total Bilirubin Direct Bilirubin AST ALT Alkaline Phosphatase Lactate Dehydrogenase C-Reactive Protein Serum Total Protein Total Protein Albumin Wurrp-9-Byljraxmf Abnorm Protein Band 1 PEP Interpretation Crossmatch 10/31/16 10/31/16 11/01/16 17:34 23:46 05:15 WBC RBC Hgb Hct MCV MCHC RDW Plt Count Seg Neuts % (Manual) Lymphocytes % (Manual) Nucleated RBC % Seg Neutrophils # Man Lymphocytes # (Manual) Haptoglobin PT INR Fibrinogen Lupus Anticoagulant LA PTT Baseline POC ABG pH POC ABG pCO2 POC ABG pO2 Sodium Potassium Chloride Carbon Dioxide BUN Creatinine Glucose POC Glucose 180 H 131 H 148 H Lactic Acid Uric Acid Calcium Phosphorus Iron TIBC Erythropoietin Ferritin Total Bilirubin Direct Bilirubin AST ALT Alkaline Phosphatase Lactate Dehydrogenase C-Reactive Protein Serum Total Protein Total Protein Albumin Cphns-6-Asafoipes Abnorm Protein Band 1 PEP Interpretation Crossmatch 11/01/16 11/01/16 11/01/16 06:00 06:00 11:45 WBC RBC 2.66 L Hgb 8.1 L Hct 24.8 L MCV MCHC RDW 17.7 H Plt Count 47 L Seg Neuts % (Manual) 88.0 H Lymphocytes % (Manual) 0 L Nucleated RBC % Seg Neutrophils # Man Lymphocytes # (Manual) 0.0 L Haptoglobin PT INR Fibrinogen Lupus Anticoagulant LA PTT Baseline POC ABG pH POC ABG pCO2 POC ABG pO2 Sodium 134 L Potassium Chloride 95.6 L Carbon Dioxide BUN 90 H Creatinine 3.5 H Glucose 154 H POC Glucose 169 H Lactic Acid Uric Acid Calcium 7.1 L Phosphorus 5.50 H Iron TIBC Erythropoietin Ferritin Total Bilirubin Direct Bilirubin AST ALT Alkaline Phosphatase Lactate Dehydrogenase C-Reactive Protein Serum Total Protein Total Protein Albumin Fwnxk-5-Sjsfwxzcm Abnorm Protein Band 1 PEP Interpretation Crossmatch 11/01/16 11/01/16 11/01/16 18:33 20:55 23:51 WBC RBC Hgb Hct MCV MCHC RDW Plt Count Seg Neuts % (Manual) Lymphocytes % (Manual) Nucleated RBC % Seg Neutrophils # Man Lymphocytes # (Manual) Haptoglobin PT INR Fibrinogen Lupus Anticoagulant LA PTT Baseline POC ABG pH POC ABG pCO2 POC ABG pO2 Sodium Potassium Chloride Carbon Dioxide BUN Creatinine Glucose POC Glucose 128 H 144 H Lactic Acid 3.10 H* Uric Acid Calcium Phosphorus Iron TIBC Erythropoietin Ferritin Total Bilirubin Direct Bilirubin AST ALT Alkaline Phosphatase Lactate Dehydrogenase C-Reactive Protein Serum Total Protein Total Protein Albumin Gqfte-2-Fmfiaqzux Abnorm Protein Band 1 PEP Interpretation Crossmatch 11/02/16 11/02/16 11/02/16 05:15 05:15 05:24 WBC RBC 2.69 L Hgb 8.2 L Hct 25.1 L MCV MCHC RDW 16.9 H Plt Count 42 L Seg Neuts % (Manual) 94.0 H Lymphocytes % (Manual) 0 L Nucleated RBC % Seg Neutrophils # Man Lymphocytes # (Manual) 0.0 L Haptoglobin PT INR Fibrinogen Lupus Anticoagulant LA PTT Baseline POC ABG pH POC ABG pCO2 POC ABG pO2 Sodium 135 L Potassium Chloride 97.7 L Carbon Dioxide BUN 67 H Creatinine 2.8 H Glucose 107 H POC Glucose 119 H Lactic Acid Uric Acid Calcium 7.3 L Phosphorus 4.90 H Iron TIBC Erythropoietin Ferritin Total Bilirubin Direct Bilirubin AST ALT Alkaline Phosphatase Lactate Dehydrogenase C-Reactive Protein Serum Total Protein Total Protein Albumin Mvljb-2-Przffdmlj Abnorm Protein Band 1 PEP Interpretation Crossmatch 11/02/16 11/02/16 11/02/16 06:07 09:26 10:00 WBC RBC 2.83 L Hgb 8.7 L Hct 26.5 L MCV MCHC RDW 17.4 H Plt Count 46 L Seg Neuts % (Manual) Lymphocytes % (Manual) Nucleated RBC % Seg Neutrophils # Man Lymphocytes # (Manual) Haptoglobin PT 19.9 H INR 1.69 H Fibrinogen Lupus Anticoagulant LA PTT Baseline POC ABG pH POC ABG pCO2 POC ABG pO2 Sodium Potassium Chloride Carbon Dioxide BUN Creatinine Glucose POC Glucose 111 H Lactic Acid Uric Acid Calcium Phosphorus Iron TIBC Erythropoietin Ferritin Total Bilirubin Direct Bilirubin AST ALT Alkaline Phosphatase Lactate Dehydrogenase C-Reactive Protein Serum Total Protein Total Protein Albumin Bbozf-4-Ezhgfknea Abnorm Protein Band 1 PEP Interpretation Crossmatch 11/03/16 11/03/16 11/03/16 00:02 03:25 03:25 WBC RBC 2.34 L Hgb 7.0 L Hct 21.9 L MCV MCHC RDW 17.6 H Plt Count 49 L Seg Neuts % (Manual) 86.0 H Lymphocytes % (Manual) 4.0 L Nucleated RBC % Seg Neutrophils # Man Lymphocytes # (Manual) 0.3 L Haptoglobin PT INR Fibrinogen Lupus Anticoagulant LA PTT Baseline POC ABG pH POC ABG pCO2 POC ABG pO2 Sodium 136 L Potassium Chloride 94.6 L Carbon Dioxide 21 L BUN 84 H Creatinine 3.2 H Glucose 116 H POC Glucose 114 H Lactic Acid Uric Acid Calcium 7.0 L Phosphorus 5.80 H Iron TIBC Erythropoietin Ferritin Total Bilirubin Direct Bilirubin AST ALT Alkaline Phosphatase Lactate Dehydrogenase C-Reactive Protein Serum Total Protein Total Protein Albumin Ejxsc-9-Bqhoozmaz Abnorm Protein Band 1 PEP Interpretation Crossmatch 11/03/16 11/03/16 11/03/16 03:25 11:05 13:02 WBC RBC Hgb Hct MCV MCHC RDW Plt Count Seg Neuts % (Manual) Lymphocytes % (Manual) Nucleated RBC % Seg Neutrophils # Man Lymphocytes # (Manual) Haptoglobin PT 22.5 H INR 1.98 H Fibrinogen Lupus Anticoagulant LA PTT Baseline POC ABG pH POC ABG pCO2 POC ABG pO2 Sodium Potassium Chloride Carbon Dioxide BUN Creatinine Glucose POC Glucose 165 H Lactic Acid Uric Acid Calcium Phosphorus Iron TIBC Erythropoietin Ferritin Total Bilirubin Direct Bilirubin AST ALT Alkaline Phosphatase Lactate Dehydrogenase C-Reactive Protein Serum Total Protein Total Protein Albumin Btmed-1-Bezetjnhb Abnorm Protein Band 1 PEP Interpretation Crossmatch See Detail 11/03/16 11/04/16 11/04/16 18:13 00:27 05:40 WBC RBC Hgb Hct MCV MCHC RDW Plt Count Seg Neuts % (Manual) Lymphocytes % (Manual) Nucleated RBC % Seg Neutrophils # Man Lymphocytes # (Manual) Haptoglobin PT 20.3 H INR 1.74 H Fibrinogen Lupus Anticoagulant LA PTT Baseline POC ABG pH POC ABG pCO2 POC ABG pO2 Sodium Potassium Chloride Carbon Dioxide BUN Creatinine Glucose POC Glucose 163 H 108 H Lactic Acid Uric Acid Calcium Phosphorus Iron TIBC Erythropoietin Ferritin Total Bilirubin Direct Bilirubin AST ALT Alkaline Phosphatase Lactate Dehydrogenase C-Reactive Protein Serum Total Protein Total Protein Albumin Emmda-9-Jvemgntba Abnorm Protein Band 1 PEP Interpretation Crossmatch 11/04/16 11/04/16 11/04/16 11:41 14:48 17:58 WBC RBC Hgb Hct MCV MCHC RDW Plt Count Seg Neuts % (Manual) Lymphocytes % (Manual) Nucleated RBC % Seg Neutrophils # Man Lymphocytes # (Manual) Haptoglobin PT INR Fibrinogen Lupus Anticoagulant LA PTT Baseline POC ABG pH POC ABG pCO2 POC ABG pO2 107 H Sodium Potassium Chloride Carbon Dioxide BUN Creatinine Glucose POC Glucose 175 H 106 H Lactic Acid Uric Acid Calcium Phosphorus Iron TIBC Erythropoietin Ferritin Total Bilirubin Direct Bilirubin AST ALT Alkaline Phosphatase Lactate Dehydrogenase C-Reactive Protein Serum Total Protein Total Protein Albumin Dkmez-0-Zhtpxmbdf Abnorm Protein Band 1 PEP Interpretation Crossmatch 11/05/16 11/05/16 11/05/16 00:21 04:55 05:40 WBC RBC 2.60 L Hgb 8.1 L Hct 24.6 L MCV 95 H MCHC RDW 16.4 H Plt Count 34 L Seg Neuts % (Manual) Lymphocytes % (Manual) 1.0 L Nucleated RBC % Seg Neutrophils # Man Lymphocytes # (Manual) 0.1 L Haptoglobin PT INR Fibrinogen Lupus Anticoagulant LA PTT Baseline POC ABG pH POC ABG pCO2 POC ABG pO2 Sodium Potassium Chloride Carbon Dioxide BUN Creatinine Glucose POC Glucose 117 H 143 H Lactic Acid Uric Acid Calcium Phosphorus Iron TIBC Erythropoietin Ferritin Total Bilirubin Direct Bilirubin AST ALT Alkaline Phosphatase Lactate Dehydrogenase C-Reactive Protein Serum Total Protein Total Protein Albumin Uhbzd-5-Iwmjgvgwt Abnorm Protein Band 1 PEP Interpretation Crossmatch 11/05/16 11/05/16 11/05/16 06:00 11:20 18:03 WBC RBC Hgb Hct MCV MCHC RDW Plt Count Seg Neuts % (Manual) Lymphocytes % (Manual) Nucleated RBC % Seg Neutrophils # Man Lymphocytes # (Manual) Haptoglobin PT INR Fibrinogen Lupus Anticoagulant LA PTT Baseline POC ABG pH POC ABG pCO2 POC ABG pO2 Sodium Potassium Chloride Carbon Dioxide BUN 46 H Creatinine 2.0 H Glucose 166 H POC Glucose 147 H 178 H Lactic Acid Uric Acid Calcium 7.3 L Phosphorus Iron TIBC Erythropoietin Ferritin Total Bilirubin Direct Bilirubin AST ALT Alkaline Phosphatase Lactate Dehydrogenase C-Reactive Protein Serum Total Protein Total Protein Albumin Hrfmn-4-Kohzvncbn Abnorm Protein Band 1 PEP Interpretation Crossmatch 11/05/16 11/05/16 11/06/16 21:31 23:49 05:09 WBC RBC Hgb Hct MCV MCHC RDW Plt Count Seg Neuts % (Manual) Lymphocytes % (Manual) Nucleated RBC % Seg Neutrophils # Man Lymphocytes # (Manual) Haptoglobin PT INR Fibrinogen Lupus Anticoagulant LA PTT Baseline POC ABG pH 7.464 H POC ABG pCO2 34.8 L POC ABG pO2 219 H Sodium Potassium Chloride Carbon Dioxide BUN Creatinine Glucose POC Glucose 130 H 138 H Lactic Acid Uric Acid Calcium Phosphorus Iron TIBC Erythropoietin Ferritin Total Bilirubin Direct Bilirubin AST ALT Alkaline Phosphatase Lactate Dehydrogenase C-Reactive Protein Serum Total Protein Total Protein Albumin Sepit-5-Atezygqos Abnorm Protein Band 1 PEP Interpretation Crossmatch 11/06/16 11/06/16 11/06/16 08:10 08:10 11:23 WBC RBC 2.78 L Hgb 8.7 L Hct 26.4 L MCV 95 H MCHC RDW 17.3 H Plt Count 34 L Seg Neuts % (Manual) Lymphocytes % (Manual) Nucleated RBC % Seg Neutrophils # Man Lymphocytes # (Manual) Haptoglobin PT INR Fibrinogen Lupus Anticoagulant LA PTT Baseline POC ABG pH POC ABG pCO2 POC ABG pO2 Sodium Potassium Chloride 97.8 L Carbon Dioxide BUN 72 H Creatinine 3.0 H Glucose 173 H POC Glucose 129 H Lactic Acid Uric Acid Calcium 7.2 L Phosphorus Iron TIBC Erythropoietin Ferritin Total Bilirubin Direct Bilirubin AST 105 H ALT Alkaline Phosphatase 759 H Lactate Dehydrogenase C-Reactive Protein Serum Total Protein Total Protein 5.1 L Albumin 1.9 L Slpiz-3-Onpjymxdw Abnorm Protein Band 1 PEP Interpretation Crossmatch 11/06/16 11/07/16 11/07/16 17:17 05:09 08:27 WBC RBC 2.76 L Hgb 8.5 L Hct 25.9 L MCV MCHC RDW 16.5 H Plt Count 33 L Seg Neuts % (Manual) Lymphocytes % (Manual) Nucleated RBC % Seg Neutrophils # Man Lymphocytes # (Manual) Haptoglobin PT INR Fibrinogen Lupus Anticoagulant LA PTT Baseline POC ABG pH POC ABG pCO2 POC ABG pO2 Sodium Potassium Chloride Carbon Dioxide BUN Creatinine Glucose POC Glucose 160 H 136 H Lactic Acid Uric Acid Calcium Phosphorus Iron TIBC Erythropoietin Ferritin Total Bilirubin Direct Bilirubin AST ALT Alkaline Phosphatase Lactate Dehydrogenase C-Reactive Protein Serum Total Protein Total Protein Albumin Ilhce-7-Alxikxtpr Abnorm Protein Band 1 PEP Interpretation Crossmatch 11/07/16 11/07/16 11/07/16 08:27 11:37 12:38 WBC RBC Hgb Hct MCV MCHC RDW Plt Count Seg Neuts % (Manual) Lymphocytes % (Manual) Nucleated RBC % Seg Neutrophils # Man Lymphocytes # (Manual) Haptoglobin PT INR Fibrinogen Lupus Anticoagulant LA PTT Baseline POC ABG pH 7.492 H POC ABG pCO2 29.8 L POC ABG pO2 132 H Sodium Potassium Chloride 96.0 L Carbon Dioxide BUN 94 H Creatinine 3.3 H Glucose 115 H POC Glucose 113 H Lactic Acid Uric Acid Calcium 7.7 L Phosphorus Iron TIBC Erythropoietin Ferritin Total Bilirubin Direct Bilirubin AST ALT Alkaline Phosphatase Lactate Dehydrogenase C-Reactive Protein Serum Total Protein Total Protein Albumin Immmi-6-Uyqtolgps Abnorm Protein Band 1 PEP Interpretation Crossmatch 11/07/16 11/07/16 11/08/16 17:20 23:40 05:15 WBC RBC 2.87 L Hgb 8.9 L Hct 26.9 L MCV MCHC RDW 16.7 H Plt Count 34 L Seg Neuts % (Manual) Lymphocytes % (Manual) Nucleated RBC % Seg Neutrophils # Man Lymphocytes # (Manual) Haptoglobin PT INR Fibrinogen Lupus Anticoagulant LA PTT Baseline POC ABG pH POC ABG pCO2 POC ABG pO2 Sodium Potassium Chloride Carbon Dioxide BUN Creatinine Glucose POC Glucose 121 H 122 H Lactic Acid Uric Acid Calcium Phosphorus Iron TIBC Erythropoietin Ferritin Total Bilirubin Direct Bilirubin AST ALT Alkaline Phosphatase Lactate Dehydrogenase C-Reactive Protein Serum Total Protein Total Protein Albumin Hcwdj-9-Wvlfcsdir Abnorm Protein Band 1 PEP Interpretation Crossmatch 11/08/16 11/08/16 11/08/16 05:15 05:31 10:05 WBC RBC Hgb Hct MCV MCHC RDW Plt Count Seg Neuts % (Manual) Lymphocytes % (Manual) Nucleated RBC % Seg Neutrophils # Man Lymphocytes # (Manual) Haptoglobin PT INR Fibrinogen Lupus Anticoagulant LA PTT Baseline POC ABG pH 7.510 H POC ABG pCO2 29.5 L POC ABG pO2 114 H Sodium Potassium Chloride Carbon Dioxide BUN 73 H Creatinine 2.8 H Glucose 110 H POC Glucose 106 H Lactic Acid Uric Acid Calcium 7.6 L Phosphorus Iron TIBC Erythropoietin Ferritin Total Bilirubin Direct Bilirubin AST ALT Alkaline Phosphatase Lactate Dehydrogenase C-Reactive Protein Serum Total Protein Total Protein Albumin Aupwg-3-Djkglfwsj Abnorm Protein Band 1 PEP Interpretation Crossmatch Chest x-ray: image reviewed Allied health notes reviewed: RT
[2016-11-08] MEDS: PEPCID PO SCH (12:02)
[2016-11-08] MEDS ORDERED: DURAGESIC TD ONE ×2 (12:16→13:00)
[2016-11-08] MEDS ORDERED: PITRESSin 20 UNIT in NACL 0.9% 100 ML IV SCH (13:00)
[2016-11-08 13:04] LABS: ISTAT Base Excess 7; ISTAT HCO3 32.2; ISTAT PCO2 52.3 (35-45); ISTAT PH 7.398 (7.35-7.45); ISTAT PO2 80 (80-105); ISTAT SO2 95; ISTAT TCO2 34
--- NOTE | 2016-11-08 23:18 | Consultation ---
History of Present Illness - Reason for Consult Consult date: 11/08/16 - History of Present Illness Patient seen/examined, labs reviewed. The [id number] result has still not resulted , unbelievable. Past History Past Medical History: hypertension, other (Had shingles in November 25-) Past Surgical History: No surgical history Social history: , full code, other (Patienti s and lives with his ). denies: smoking, alcohol abuse, prescription drug abuse, IV drug use Family history: no significant family history Medications and Allergies Allergies Allergy/AdvReac Type Severity Reaction Status Date / Time No Known Allergies Allergy Unverified 10/13/16 09:41 Home Medications Medication Instructions Recorded Confirmed Last Taken Type Naproxen Sodium [Aleve TAB] 2 tab PO Q8H PRN 10/13/16 10/13/16 10/12/16 14:00 History Active Meds: Active Medications Acetaminophen (Tylenol) 1,000 mg WI Q4H PRN PRN Reason: Pain, Mild (1-3) Last Admin: 10/20/16 15:40 Dose: 1,000 mg Acetaminophen (Tylenol) 650 mg FEEDTUBE Q6H PRN PRN Reason: Pain, Mild (1-3) Last Admin: 10/24/16 10:56 Dose: 650 mg Alteplase, Recombinant (Cathflo) 4 mg IV ROD PRN PRN Reason: hemodialysis Last Admin: 11/07/16 14:24 Dose: 4 mg Lipase/Protease/Amylase (Pancreaze Dr 10,500 Unit) 1 each FEEDTUBE PRN PRN PRN Reason: For Clogged Feeding Tube Dextrose (D50w (25gm)) 25 ml IV PRN PRN PRN Reason: Hypoglycemia Last Admin: 10/18/16 07:20 Dose: 25 ml Diphenhydramine HCl (Benadryl) 50 mg IV Q6H PRN PRN Reason: Itching Last Admin: 10/24/16 10:57 Dose: 50 mg Famotidine (Pepcid) 20 mg PO Q24H EDWINA Last Admin: 11/08/16 12:02 Dose: 20 mg Haloperidol Lactate (Haldol) 5 mg IM Q6H PRN PRN Reason: Agitation Last Admin: 10/14/16 21:11 Dose: 5 mg Heparin Sodium (Porcine) (Heparin) 10,000 unit IV ROD PRN PRN Reason: for plasmapheresis- vascath Last Admin: 11/07/16 17:34 Dose: 10,000 unit Hydrophilic Ointment (Vaseline Lip Therapy) 1 applic TP Q2H PRN PRN Reason: Dry Lips Fentanyl Citrate (Fentanyl Drip Premix) 2,000 mcg in 100 mls @ 3.045 mls/hr IV TITR EDWINA; 1 MCG/KG/HR PRN Reason: Protocol Sodium Chloride (Nacl 0.9%) 100 mls @ 999 mls/hr IV ROD PRN PRN Reason: Hypotension Norepinephrine (Levophed Drip 4 Mg/Ns 250 Ml) 4 mg in 250 mls @ 7.5 mls/hr IV TITR EDWINA; 2 MCG/MIN PRN Reason: Protocol Last Admin: 11/08/16 13:09 Dose: 5 mcg/min, 18.75 mls/hr Sodium Chloride (Nacl 0.9%) 100 mls @ 999 mls/hr IV ROD PRN PRN Reason: Hypotension Vasopressin 20 unit/ Sodium (Chloride) 101 mls @ 9.09 mls/hr IV TITR EDWINA; 0.03 UNITS/MIN PRN Reason: Protocol Insulin Aspart (Novolog) 0 units SUB-Q Q6HR EDWINA PRN Reason: Protocol Last Admin: 11/08/16 13:08 Dose: Not Given Labetalol HCl (Normodyne) 20 mg IV Q6H PRN PRN Reason: Hypertension Last Admin: 10/25/16 05:33 Dose: 20 mg Loperamide HCl (Imodium A-D) 2 mg PO Q2H PRN PRN Reason: Diarrhea Last Admin: 11/03/16 14:09 Dose: 2 mg Metoprolol Tartrate (Lopressor) 25 mg PO BID EDWINA Last Admin: 11/08/16 11:50 Dose: Not Given Multi-Ingred Cream/Lotion/Oil/Oint (Artificial Tears Ophth Oint) 1 applic OU Q4H PRN PRN Reason: Dry Eye(s) Ondansetron HCl (Zofran) 4 mg IV Q8H PRN PRN Reason: Nausea And Vomiting Simple Syrup (Simple Syrup) 15 ml FEEDTUBE PRN PRN PRN Reason: Hypoglycemia Simple Syrup (Simple Syrup) 30 ml FEEDTUBE PRN PRN PRN Reason: Hypoglycemia Sodium Bicarbonate (Sodium Bicarbonate) 325 mg FEEDTUBE PRN PRN PRN Reason: For Clogged Feeding Tube Last Admin: 11/02/16 11:08 Dose: 325 mg Sodium Chloride (Sodium Chloride Flush Syringe 10 Ml) 10 ml IV PRN PRN PRN Reason: LINE FLUSH Last Admin: 10/17/16 20:45 Dose: 10 ml Exam - Constitutional Vitals: Temp Pulse Resp BP Pulse Ox 98.7 F 105 H 16 114/71 100 11/08/16 19:44 11/08/16 20:05 11/08/16 19:30 11/08/16 20:05 11/08/16 20:05 General appearance: Present: severe distress - EENT Eyes: Present: PERRL ENT: hearing intact, clear oral mucosa - Neck Neck: Present: supple, normal ROM - Cardiovascular Heart Sounds: Present: S1 & S2. Absent: rub, click - Extremities Extremities: pulses symmetrical, No edema Peripheral Pulses: within normal limits - Abdominal General gastrointestinal: Present: soft, non-tender, non-distended, normal bowel sounds Male genitourinary: Present: deferred - Rectal Rectal Exam: deferred - Integumentary Integumentary: Present: clear, warm, dry Results - Labs CBC & Chem 7: 11/08/16 05:15 11/08/16 05:15 Labs: Abnormal lab results 11/07/16 11/08/16 11/08/16 Range/Units 23:40 05:15 05:15 RBC 2.87 L (3.65-5.03) M/mm3 Hgb 8.9 L (11.8-15.2) gm/dl Hct 26.9 L (35.5-45.6) % RDW 16.7 H (13.2-15.2) % Plt Count 34 L (140-440) K/mm3 POC ABG pH (7.35-7.45) POC ABG pCO2 (35-45) POC ABG pO2 (80-105) BUN 73 H (9-20) mg/dL Creatinine 2.8 H (0.8-1.5) mg/dL Glucose 110 H (75-100) mg/dL POC Glucose 122 H (70-105) Calcium 7.6 L (8.4-10.2) mg/dL 06/11/08/16 11/08/16 Range/Units 05:31 10:05 12:24 RBC (3.65-5.03) M/mm3 Hgb (11.8-15.2) gm/dl Hct (35.5-45.6) % RDW (13.2-15.2) % Plt Count (140-440) K/mm3 POC ABG pH 7.510 H (7.35-7.45) POC ABG pCO2 29.5 L (35-45) POC ABG pO2 114 H (80-105) BUN (9-20) mg/dL Creatinine (0.8-1.5) mg/dL Glucose (75-100) mg/dL POC Glucose 106 H 110 H (70-105) Calcium (8.4-10.2) mg/dL 11/08/16 11/08/16 Range/Units 12:53 18:05 RBC (3.65-5.03) M/mm3 Hgb (11.8-15.2) gm/dl Hct (35.5-45.6) % RDW (13.2-15.2) % Plt Count (140-440) K/mm3 POC ABG pH (7.35-7.45) POC ABG pCO2 52.3 H (35-45) POC ABG pO2 (80-105) BUN (9-20) mg/dL Creatinine (0.8-1.5) mg/dL Glucose (75-100) mg/dL POC Glucose 166 H (70-105) Calcium (8.4-10.2) mg/dL Assessment and Plan - Patient Problems (1) Anemia Current Visit: Yes Status: Acute Qualifiers: Anemia type: unspecified type Iron deficiency anemia type: I Vitamin B12 deficiency anemia type: V Folate deficiency anemia type: F Bone marrow failure anemia type: B Hemolytic anemia type: H Other causes of anemia: O Chronic kidney disease stage: C Qualified Code(s): D64.9 - Anemia, unspecified Plan to address problem: will replace if less than 7.0 (2) Leucopenia Current Visit: Yes Status: Acute Qualifiers: Leukopenia type: unspecified Neutropenia type: N Qualified Code(s): D72.819 - Decreased white blood cell count, unspecified Plan to address problem: not binding. (3) Renal failure Current Visit: Yes Status: Acute Qualifiers: Renal failure chronicity: acute Acute renal failure type: unspecified Chronic kidney disease stage: C Qualified Code(s): N17.9 - Acute kidney failure, unspecified Plan to address problem: See w/up, and renal service. see notes Follow stone operator.
[2016-11-09] MEDS: NOVOLOG SUB-Q SCH ×2 (07:46→18:30)
[2016-11-09 08:14] LABS: Hematocrit 27.7 % (35.5-45.6); Hemoglobin 8.9 gm/dl (11.8-15.2); Mean Corpuscular HGB Conc 32 % (32-34); Mean Corpuscular Hemoglobin 31 pg (28-32); Mean Corpuscular Volume 95 fl (84-94); Red Blood Count 2.91 M/mm3 (3.65-5.03); Red Cell Distribution Width 17.4 % (13.2-15.2); White Blood Count 11.1 K/mm3 (4.5-11.0)
[2016-11-09 08:43] LABS: Platelet Count 59 K/mm3 (140-440)
[2016-11-09 09:15] LABS: BUN/Creatinine Ratio 24.73; Calcium 7.6 mg/dL (8.4-10.2); Chloride 98.9 mmol/L (98-107); Potassium 3.3 mmol/L (3.6-5.0)
[2016-11-09] MEDS: LOPRESSOR PO SCH (09:32)
[2016-11-09] MEDS: PEPCID PO SCH (09:32)
[2016-11-09] MEDS: LEVOPHED DRIP 4 MG/NS 250 ML 4 MG/250 ML BAG IV SCH ×2 (09:32→18:27)
--- NOTE | 2016-11-09 12:22 | Progress Note ---
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 - continue HD/UF per nephrology recs - follow I's and O's - correct electrolytes prn - continue to avoid nephrotoxins - per nephrology otherwise (3) Metabolic acidosis Current Visit: Yes Status: Acute Plan to address problem: - mixed etiology - Lactic Acidosis component resolved - sepsis may have been driving force for that - RAJESH component - continue HD/UF per nephrology prescription - completed Anti-infectives course and following clinically (4) CHF (congestive heart failure) Current Visit: Yes Status: Acute Qualifiers: Congestive heart failure type: C Congestive heart failure chronicity: C Plan to address problem: - ECHO consistent with possible infiltrating disease - EF 30& - will look to HD/UF for volume clearance as not responsive to diuretics - per cardiology otherwise (5) Pancytopenia Current Visit: Yes Status: Acute Plan to address problem: - hematology on case - s/p plasmapheresis - may need bone marrow evaluation - follow platelet count (6) Acute encephalopathy Current Visit: Yes Status: Acute Plan to address problem: - CT brain negative - likely toxic-metabolic encephalopathy element also - MRI abnormal - neurology evaluation ongoing - following clinically (7) Hypoglycemia Current Visit: Yes Status: Acute Plan to address problem: - improved - suspect sepsis related element - completed systemic steroid taper - also continue enteral nutrition - continue glycemic control via SSI at this point (8) Sepsis syndrome Current Visit: Yes Status: Acute Plan to address problem: - s/p antibiotic course - ID on case - CRP and lactate much improved - JONATHAN negative - following clinically - c-diff assay negative - Anti-infectives per ID recs (off AB's now) (9) Discharge planning issues Current Visit: Yes Status: Acute Plan to address problem: - he remains critically ill on life sustaining interventions including MVS and at risk for further deterioration including ...31' CCT Subjective Date of service: 11/09/16 Principal diagnosis: Sepsis Syndrome; MAHA; RAJESH; CHF; TTP Interval history: Seen and examined at bedside; 24 hour events reviewed; nursing and respiratory care staff consulted; no adverse overnight events reported to me; discussed with nephrology; we will give another trial of HD/UF and one more session day after if he tolerates to help with pulmonary edema; otherwise still a difficult wean; AMS is persistent Objective Vital Signs - 12hr 11/09/16 11/09/16 11/09/16 00:30 00:45 01:00 Temperature Pulse Rate 100 H 100 H 100 H Pulse Rate [ From Monitor] Respiratory 38 H 22 19 Rate Blood Pressure 137/72 132/75 122/74 O2 Sat by Pulse 100 97 Oximetry 11/09/16 11/09/16 11/09/16 01:15 01:30 01:45 Temperature Pulse Rate 101 H 103 H 102 H Pulse Rate [ From Monitor] Respiratory 20 20 20 Rate Blood Pressure 128/79 133/75 125/71 O2 Sat by Pulse Oximetry 11/09/16 11/09/16 11/09/16 02:00 02:15 02:30 Temperature Pulse Rate 102 H 101 H 101 H Pulse Rate [ From Monitor] Respiratory 21 21 20 Rate Blood Pressure 135/77 129/77 134/74 O2 Sat by Pulse 100 100 Oximetry 11/09/16 11/09/16 11/09/16 02:45 03:00 03:15 Temperature Pulse Rate 100 H 101 H 101 H Pulse Rate [ From Monitor] Respiratory 20 21 21 Rate Blood Pressure 114/70 114/70 125/76 O2 Sat by Pulse 99 100 100 Oximetry 11/09/16 11/09/16 11/09/16 03:30 03:45 04:00 Temperature 99.4 F Pulse Rate 99 H 102 H 104 H Pulse Rate [ From Monitor] Respiratory 21 24 26 H Rate Blood Pressure 127/72 142/80 140/74 O2 Sat by Pulse Oximetry 11/09/16 11/09/16 11/09/16 04:15 04:30 04:37 Temperature Pulse Rate 99 H 98 H 99 H Pulse Rate [ From Monitor] Respiratory 19 20 Rate Blood Pressure 134/75 131/75 134/75 O2 Sat by Pulse 100 Oximetry 11/09/16 11/09/16 11/09/16 04:46 05:00 05:15 Temperature Pulse Rate 102 H 109 H 101 H Pulse Rate [ From Monitor] Respiratory 20 21 Rate Blood Pressure 123/78 123/78 73/46 O2 Sat by Pulse 100 100 99 Oximetry 11/09/16 11/09/16 11/09/16 05:30 05:45 06:00 Temperature 97.9 F Pulse Rate 102 H 99 H 100 H Pulse Rate [ From Monitor] Respiratory Rate Blood Pressure 107/69 99/69 105/75 O2 Sat by Pulse 95 100 Oximetry 11/09/16 11/09/16 11/09/16 06:15 06:30 06:45 Temperature Pulse Rate 100 H 102 H 98 H Pulse Rate [ From Monitor] Respiratory Rate Blood Pressure 126/79 114/70 125/73 O2 Sat by Pulse 100 Oximetry 11/09/16 11/09/16 11/09/16 07:00 07:15 07:30 Temperature Pulse Rate 97 H 98 H 100 H Pulse Rate [ From Monitor] Respiratory Rate Blood Pressure 129/70 124/71 103/70 O2 Sat by Pulse 100 100 Oximetry 11/09/16 11/09/16 11/09/16 07:46 07:54 08:00 Temperature 99.0 F Pulse Rate 98 H 99 H Pulse Rate [ From Monitor] Respiratory Rate Blood Pressure 95/71 121/81 O2 Sat by Pulse Oximetry 11/09/16 11/09/16 11/09/16 08:15 08:30 08:37 Temperature Pulse Rate 102 H 100 H Pulse Rate [ 101 H From Monitor] Respiratory Rate Blood Pressure 120/78 124/78 O2 Sat by Pulse 95 96 100 Oximetry 11/09/16 11/09/16 11/09/16 08:45 08:52 09:00 Temperature Pulse Rate 104 H 100 H 106 H Pulse Rate [ From Monitor] Respiratory Rate Blood Pressure 119/71 119/71 116/72 O2 Sat by Pulse 100 100 Oximetry 11/09/16 11/09/16 11/09/16 09:15 09:30 09:45 Temperature Pulse Rate 102 H 100 H 102 H Pulse Rate [ From Monitor] Respiratory Rate Blood Pressure 106/58 97/60 104/64 O2 Sat by Pulse 97 99 Oximetry 11/09/16 11/09/16 11/09/16 10:00 10:15 10:30 Temperature Pulse Rate 103 H 100 H 102 H Pulse Rate [ From Monitor] Respiratory Rate Blood Pressure 112/65 102/59 102/59 O2 Sat by Pulse 96 100 99 Oximetry 11/09/16 11/09/16 11/09/16 10:45 11:00 11:15 Temperature Pulse Rate 102 H 102 H 105 H Pulse Rate [ From Monitor] Respiratory Rate Blood Pressure 103/58 102/53 109/57 O2 Sat by Pulse 98 100 Oximetry 11/09/16 11/09/16 11:30 11:49 Temperature Pulse Rate 106 H Pulse Rate [ 105 H From Monitor] Respiratory Rate Blood Pressure 107/59 O2 Sat by Pulse 100 96 Oximetry Constitutional: no acute distress, other (lethargic to encephalopathic) Eyes: non-icteric ENT: oropharynx moist Neck: supple, no lymphadenopathy Effort: mildly labored Ascultation: Bilateral: diminished breath sounds, rales Cardiovascular: irregular rhythm Gastrointestinal: normoactive bowel sounds, soft, non-tender, non-distended Integumentary: normal Extremities: no cyanosis, pulses normal, no ischemia or petechiae, edema Neurologic: non-focal exam (grossly), pupils equal and round, unable to assess Psychiatric: other (unable to assess) CBC and BMP: 11/11/16 08:30 11/11/16 08:30 ABG, PT/INR, D-dimer: ABG POC ABG pH 7.398 (7.35-7.45) 11/08/16 12:53 POC ABG pCO2 52.3 (35-45) H 11/08/16 12:53 POC ABG pO2 80 (80-105) 11/08/16 12:53 POC ABG HCO3 32.2 11/08/16 12:53 POC ABG Total CO2 34 11/08/16 12:53 POC ABG O2 Sat 95 11/08/16 12:53 PT/INR, D-dimer PT 20.3 Sec. (12.2-14.9) H 11/04/16 05:40 INR 1.74 (0.87-1.13) H 11/04/16 05:40 Abnormal lab findings: Abnormal Labs 10/13/16 10/13/16 10/13/16 14:50 21:40 22:05 WBC RBC Hgb Hct MCV MCHC RDW Plt Count Seg Neuts % (Manual) Lymphocytes % (Manual) Nucleated RBC % Seg Neutrophils # Man Lymphocytes # (Manual) Haptoglobin PT INR Fibrinogen Lupus Anticoagulant LA PTT Baseline POC ABG pH POC ABG pCO2 POC ABG pO2 Sodium Potassium Chloride Carbon Dioxide BUN Creatinine Glucose POC Glucose 52 L 43 L Lactic Acid Uric Acid Calcium Phosphorus Iron TIBC Erythropoietin Ferritin Total Bilirubin Direct Bilirubin AST ALT Alkaline Phosphatase Lactate Dehydrogenase C-Reactive Protein Serum Total Protein 5.6 L Total Protein Albumin 2.2 L Tqrcv-0-Lqzydkluf 0.5 H Abnorm Protein Band 1 1.4 H PEP Interpretation see below H Crossmatch 10/13/16 10/14/16 10/14/16 23:18 03:00 03:00 WBC RBC Hgb Hct MCV MCHC RDW Plt Count Seg Neuts % (Manual) Lymphocytes % (Manual) Nucleated RBC % Seg Neutrophils # Man Lymphocytes # (Manual) Haptoglobin PT INR Fibrinogen Lupus Anticoagulant see below H LA PTT Baseline 55 H POC ABG pH POC ABG pCO2 POC ABG pO2 Sodium Potassium Chloride Carbon Dioxide BUN Creatinine Glucose POC Glucose 113 H Lactic Acid Uric Acid Calcium Phosphorus Iron TIBC Erythropoietin Ferritin Total Bilirubin Direct Bilirubin AST ALT Alkaline Phosphatase Lactate Dehydrogenase 406 H C-Reactive Protein Serum Total Protein Total Protein Albumin Manjx-2-Ryygprihu Abnorm Protein Band 1 PEP Interpretation Crossmatch 10/14/16 10/14/16 10/14/16 03:00 03:00 04:34 WBC 1.3 L* RBC 2.33 L Hgb 7.3 L Hct 21.7 L MCV MCHC RDW 19.8 H Plt Count 99 L Seg Neuts % (Manual) Lymphocytes % (Manual) 3.0 L Nucleated RBC % Seg Neutrophils # Man 0.9 L Lymphocytes # (Manual) 0.0 L Haptoglobin PT INR Fibrinogen Lupus Anticoagulant LA PTT Baseline POC ABG pH POC ABG pCO2 POC ABG pO2 Sodium Potassium Chloride Carbon Dioxide 18 L BUN 73 H Creatinine 9.8 H Glucose 59 L POC Glucose Lactic Acid Uric Acid 8.0 H Calcium 8.2 L Phosphorus 6.60 H Iron 13 L TIBC 160 L Erythropoietin Ferritin Total Bilirubin Direct Bilirubin AST ALT Alkaline Phosphatase Lactate Dehydrogenase C-Reactive Protein Serum Total Protein Total Protein Albumin Wirke-0-Mrncxklxv Abnorm Protein Band 1 PEP Interpretation Crossmatch 10/14/16 10/14/16 10/14/16 05:27 06:29 07:34 WBC RBC Hgb Hct MCV MCHC RDW Plt Count Seg Neuts % (Manual) Lymphocytes % (Manual) Nucleated RBC % Seg Neutrophils # Man Lymphocytes # (Manual) Haptoglobin PT INR Fibrinogen Lupus Anticoagulant LA PTT Baseline POC ABG pH POC ABG pCO2 POC ABG pO2 Sodium Potassium Chloride Carbon Dioxide BUN Creatinine Glucose POC Glucose < 40 L 63 L < 40 L Lactic Acid Uric Acid Calcium Phosphorus Iron TIBC Erythropoietin Ferritin Total Bilirubin Direct Bilirubin AST ALT Alkaline Phosphatase Lactate Dehydrogenase C-Reactive Protein Serum Total Protein Total Protein Albumin Yfihi-4-Snyrtembq Abnorm Protein Band 1 PEP Interpretation Crossmatch 10/14/16 10/14/16 10/14/16 09:58 09:58 09:58 WBC RBC Hgb Hct MCV MCHC RDW Plt Count Seg Neuts % (Manual) Lymphocytes % (Manual) Nucleated RBC % Seg Neutrophils # Man Lymphocytes # (Manual) Haptoglobin 218 H PT INR Fibrinogen 557 H Lupus Anticoagulant LA PTT Baseline POC ABG pH POC ABG pCO2 POC ABG pO2 Sodium Potassium Chloride Carbon Dioxide BUN Creatinine Glucose POC Glucose Lactic Acid Uric Acid Calcium Phosphorus Iron TIBC Erythropoietin Ferritin Total Bilirubin 1.30 H Direct Bilirubin 1.1 H AST ALT Alkaline Phosphatase Lactate Dehydrogenase C-Reactive Protein Serum Total Protein Total Protein Albumin Nkgso-9-Cqqinphtv Abnorm Protein Band 1 PEP Interpretation Crossmatch 10/14/16 10/14/16 10/14/16 10:57 11:15 12:52 WBC RBC Hgb Hct MCV MCHC RDW Plt Count Seg Neuts % (Manual) Lymphocytes % (Manual) Nucleated RBC % Seg Neutrophils # Man Lymphocytes # (Manual) Haptoglobin PT INR Fibrinogen Lupus Anticoagulant LA PTT Baseline POC ABG pH POC ABG pCO2 POC ABG pO2 Sodium Potassium Chloride Carbon Dioxide BUN Creatinine Glucose POC Glucose < 40 L < 40 L Lactic Acid 9.60 H* Uric Acid Calcium Phosphorus Iron TIBC Erythropoietin Ferritin Total Bilirubin Direct Bilirubin AST ALT Alkaline Phosphatase Lactate Dehydrogenase C-Reactive Protein Serum Total Protein Total Protein Albumin Cpbyl-0-Bicarpjeh Abnorm Protein Band 1 PEP Interpretation Crossmatch 10/14/16 10/14/16 10/14/16 12:52 13:17 14:12 WBC RBC Hgb Hct MCV MCHC RDW Plt Count Seg Neuts % (Manual) Lymphocytes % (Manual) Nucleated RBC % Seg Neutrophils # Man Lymphocytes # (Manual) Haptoglobin PT INR Fibrinogen Lupus Anticoagulant LA PTT Baseline POC ABG pH POC ABG pCO2 POC ABG pO2 Sodium Potassium Chloride Carbon Dioxide BUN Creatinine Glucose POC Glucose < 40 L < 40 L Lactic Acid Uric Acid Calcium Phosphorus Iron TIBC Erythropoietin Ferritin Total Bilirubin Direct Bilirubin AST ALT Alkaline Phosphatase Lactate Dehydrogenase C-Reactive Protein 40.40 H Serum Total Protein Total Protein Albumin Rzjrv-1-Vyfmxocgf Abnorm Protein Band 1 PEP Interpretation Crossmatch 10/14/16 10/14/16 10/14/16 15:02 15:33 15:33 WBC RBC Hgb Hct MCV MCHC RDW Plt Count Seg Neuts % (Manual) Lymphocytes % (Manual) Nucleated RBC % Seg Neutrophils # Man Lymphocytes # (Manual) Haptoglobin PT INR Fibrinogen Lupus Anticoagulant LA PTT Baseline POC ABG pH POC ABG pCO2 POC ABG pO2 Sodium Potassium Chloride Carbon Dioxide BUN Creatinine Glucose 19 L* POC Glucose < 40 L Lactic Acid 11.60 H* Uric Acid Calcium Phosphorus Iron TIBC Erythropoietin Ferritin Total Bilirubin Direct Bilirubin AST ALT Alkaline Phosphatase Lactate Dehydrogenase C-Reactive Protein Serum Total Protein Total Protein Albumin Efxfb-2-Okkgjxkmd Abnorm Protein Band 1 PEP Interpretation Crossmatch 10/14/16 10/14/16 10/14/16 17:14 18:03 21:25 WBC RBC Hgb Hct MCV MCHC RDW Plt Count Seg Neuts % (Manual) Lymphocytes % (Manual) Nucleated RBC % Seg Neutrophils # Man Lymphocytes # (Manual) Haptoglobin PT 28.9 H INR 2.71 H Fibrinogen Lupus Anticoagulant LA PTT Baseline POC ABG pH POC ABG pCO2 POC ABG pO2 Sodium Potassium Chloride Carbon Dioxide BUN Creatinine Glucose POC Glucose < 40 L 57 L Lactic Acid Uric Acid Calcium Phosphorus Iron TIBC Erythropoietin Ferritin Total Bilirubin Direct Bilirubin AST ALT Alkaline Phosphatase Lactate Dehydrogenase C-Reactive Protein Serum Total Protein Total Protein Albumin Kswwf-3-Zdqnukgrb Abnorm Protein Band 1 PEP Interpretation Crossmatch 10/15/16 10/15/16 10/15/16 05:32 05:35 05:35 WBC RBC 2.62 L Hgb 8.1 L Hct 25.8 L MCV 98 H D MCHC 31 L RDW 21.2 H Plt Count 61 L Seg Neuts % (Manual) 27.0 L Lymphocytes % (Manual) 10.0 L Nucleated RBC % 2.0 H Seg Neutrophils # Man Lymphocytes # (Manual) 0.8 L Haptoglobin PT INR Fibrinogen Lupus Anticoagulant LA PTT Baseline POC ABG pH POC ABG pCO2 POC ABG pO2 Sodium Potassium Chloride Carbon Dioxide BUN Creatinine Glucose POC Glucose < 40 L Lactic Acid Uric Acid Calcium Phosphorus Iron TIBC Erythropoietin Ferritin Total Bilirubin Direct Bilirubin AST ALT Alkaline Phosphatase Lactate Dehydrogenase 3871 H C-Reactive Protein Serum Total Protein Total Protein Albumin Duych-6-Fgrpxwdeg Abnorm Protein Band 1 PEP Interpretation Crossmatch 10/15/16 10/15/16 10/15/16 05:35 05:35 05:35 WBC RBC Hgb Hct MCV MCHC RDW Plt Count Seg Neuts % (Manual) Lymphocytes % (Manual) Nucleated RBC % Seg Neutrophils # Man Lymphocytes # (Manual) Haptoglobin PT INR Fibrinogen Lupus Anticoagulant LA PTT Baseline POC ABG pH POC ABG pCO2 POC ABG pO2 Sodium 136 L Potassium 5.3 H D Chloride 91.4 L Carbon Dioxide 6 L* D BUN 57 H Creatinine 7.1 H Glucose 11 L* POC Glucose Lactic Acid 13.60 H* Uric Acid Calcium 7.7 L Phosphorus 10.10 H D Iron TIBC 166 L Erythropoietin Ferritin 9562.0 H Total Bilirubin Direct Bilirubin AST ALT Alkaline Phosphatase Lactate Dehydrogenase C-Reactive Protein Serum Total Protein Total Protein Albumin Zrnzu-4-Btlmsxwvq Abnorm Protein Band 1 PEP Interpretation Crossmatch 10/15/16 10/15/16 10/15/16 05:51 06:22 06:52 WBC RBC Hgb Hct MCV MCHC RDW Plt Count Seg Neuts % (Manual) Lymphocytes % (Manual) Nucleated RBC % Seg Neutrophils # Man Lymphocytes # (Manual) Haptoglobin PT INR Fibrinogen Lupus Anticoagulant LA PTT Baseline POC ABG pH 7.189 L POC ABG pCO2 28.9 L POC ABG pO2 Sodium Potassium Chloride Carbon Dioxide BUN Creatinine Glucose POC Glucose 59 L 111 H Lactic Acid Uric Acid Calcium Phosphorus Iron TIBC Erythropoietin Ferritin Total Bilirubin Direct Bilirubin AST ALT Alkaline Phosphatase Lactate Dehydrogenase C-Reactive Protein Serum Total Protein Total Protein Albumin Dznlw-3-Vpcvybbst Abnorm Protein Band 1 PEP Interpretation Crossmatch 10/15/16 10/15/16 10/15/16 08:00 09:57 11:42 WBC RBC Hgb Hct MCV MCHC RDW Plt Count Seg Neuts % (Manual) Lymphocytes % (Manual) Nucleated RBC % Seg Neutrophils # Man Lymphocytes # (Manual) Haptoglobin PT INR Fibrinogen Lupus Anticoagulant LA PTT Baseline POC ABG pH POC ABG pCO2 POC ABG pO2 Sodium Potassium Chloride Carbon Dioxide BUN Creatinine Glucose POC Glucose 63 L 143 H 203 H Lactic Acid Uric Acid Calcium Phosphorus Iron TIBC Erythropoietin Ferritin Total Bilirubin Direct Bilirubin AST ALT Alkaline Phosphatase Lactate Dehydrogenase C-Reactive Protein Serum Total Protein Total Protein Albumin Xanfj-2-Nbltktchz Abnorm Protein Band 1 PEP Interpretation Crossmatch 10/15/16 10/15/16 10/15/16 12:00 12:00 13:00 WBC RBC Hgb Hct MCV MCHC RDW Plt Count Seg Neuts % (Manual) Lymphocytes % (Manual) Nucleated RBC % Seg Neutrophils # Man Lymphocytes # (Manual) Haptoglobin <15 L PT INR Fibrinogen Lupus Anticoagulant LA PTT Baseline POC ABG pH POC ABG pCO2 POC ABG pO2 Sodium Potassium Chloride Carbon Dioxide BUN Creatinine Glucose POC Glucose 136 H Lactic Acid 16.30 H* Uric Acid Calcium Phosphorus Iron TIBC Erythropoietin Ferritin Total Bilirubin Direct Bilirubin AST ALT Alkaline Phosphatase Lactate Dehydrogenase C-Reactive Protein Serum Total Protein Total Protein Albumin Wzuhb-7-Evxcrbqry Abnorm Protein Band 1 PEP Interpretation Crossmatch 10/15/16 10/15/16 10/15/16 14:06 15:15 16:23 WBC RBC Hgb Hct MCV MCHC RDW Plt Count Seg Neuts % (Manual) Lymphocytes % (Manual) Nucleated RBC % Seg Neutrophils # Man Lymphocytes # (Manual) Haptoglobin PT INR Fibrinogen Lupus Anticoagulant LA PTT Baseline POC ABG pH POC ABG pCO2 POC ABG pO2 Sodium Potassium Chloride Carbon Dioxide BUN Creatinine Glucose POC Glucose 132 H 64 L Lactic Acid 20.40 H* Uric Acid Calcium Phosphorus Iron TIBC Erythropoietin Ferritin Total Bilirubin Direct Bilirubin AST ALT Alkaline Phosphatase Lactate Dehydrogenase C-Reactive Protein Serum Total Protein Total Protein Albumin Jypow-4-Edvidxwrj Abnorm Protein Band 1 PEP Interpretation Crossmatch 10/15/16 10/15/16 10/15/16 16:40 17:00 17:10 WBC RBC Hgb Hct MCV MCHC RDW Plt Count Seg Neuts % (Manual) Lymphocytes % (Manual) Nucleated RBC % Seg Neutrophils # Man Lymphocytes # (Manual) Haptoglobin PT INR Fibrinogen Lupus Anticoagulant LA PTT Baseline POC ABG pH 7.323 L POC ABG pCO2 25.8 L POC ABG pO2 135 H Sodium Potassium Chloride Carbon Dioxide BUN Creatinine Glucose POC Glucose 159 H Lactic Acid 20.20 H* Uric Acid Calcium Phosphorus Iron TIBC Erythropoietin Ferritin Total Bilirubin Direct Bilirubin AST ALT Alkaline Phosphatase Lactate Dehydrogenase C-Reactive Protein Serum Total Protein Total Protein Albumin Ocsve-0-Bsskiaahi Abnorm Protein Band 1 PEP Interpretation Crossmatch 10/15/16 10/15/16 10/15/16 17:46 17:53 18:45 WBC RBC Hgb Hct MCV MCHC RDW Plt Count Seg Neuts % (Manual) Lymphocytes % (Manual) Nucleated RBC % Seg Neutrophils # Man Lymphocytes # (Manual) Haptoglobin PT INR Fibrinogen Lupus Anticoagulant LA PTT Baseline POC ABG pH POC ABG pCO2 POC ABG pO2 Sodium Potassium Chloride Carbon Dioxide BUN Creatinine Glucose POC Glucose 126 H 143 H Lactic Acid 21.40 H* Uric Acid Calcium Phosphorus Iron TIBC Erythropoietin Ferritin Total Bilirubin Direct Bilirubin AST ALT Alkaline Phosphatase Lactate Dehydrogenase C-Reactive Protein Serum Total Protein Total Protein Albumin Wvygn-1-Mycfsrtwo Abnorm Protein Band 1 PEP Interpretation Crossmatch 10/15/16 10/15/16 10/16/16 20:03 22:59 00:06 WBC RBC Hgb Hct MCV MCHC RDW Plt Count Seg Neuts % (Manual) Lymphocytes % (Manual) Nucleated RBC % Seg Neutrophils # Man Lymphocytes # (Manual) Haptoglobin PT INR Fibrinogen Lupus Anticoagulant LA PTT Baseline POC ABG pH POC ABG pCO2 POC ABG pO2 Sodium Potassium Chloride Carbon Dioxide BUN Creatinine Glucose POC Glucose 66 L 53 L 126 H Lactic Acid Uric Acid Calcium Phosphorus Iron TIBC Erythropoietin Ferritin Total Bilirubin Direct Bilirubin AST ALT Alkaline Phosphatase Lactate Dehydrogenase C-Reactive Protein Serum Total Protein Total Protein Albumin Zmqjb-3-Fwgioewjc Abnorm Protein Band 1 PEP Interpretation Crossmatch 10/16/16 10/16/16 10/16/16 01:03 03:55 04:00 WBC RBC Hgb Hct MCV MCHC RDW Plt Count Seg Neuts % (Manual) Lymphocytes % (Manual) Nucleated RBC % Seg Neutrophils # Man Lymphocytes # (Manual) Haptoglobin PT INR Fibrinogen Lupus Anticoagulant LA PTT Baseline POC ABG pH POC ABG pCO2 POC ABG pO2 Sodium Potassium Chloride Carbon Dioxide BUN Creatinine Glucose POC Glucose 107 H 260 H Lactic Acid 18.00 H* Uric Acid Calcium Phosphorus Iron TIBC Erythropoietin Ferritin Total Bilirubin Direct Bilirubin AST ALT Alkaline Phosphatase Lactate Dehydrogenase C-Reactive Protein Serum Total Protein Total Protein Albumin Lqerh-6-Ekmwrcueg Abnorm Protein Band 1 PEP Interpretation Crossmatch 10/16/16 10/16/16 10/16/16 04:03 07:58 08:34 WBC RBC Hgb Hct MCV MCHC RDW Plt Count Seg Neuts % (Manual) Lymphocytes % (Manual) Nucleated RBC % Seg Neutrophils # Man Lymphocytes # (Manual) Haptoglobin PT INR Fibrinogen Lupus Anticoagulant LA PTT Baseline POC ABG pH 7.527 H POC ABG pCO2 32.9 L POC ABG pO2 119 H Sodium Potassium Chloride Carbon Dioxide BUN Creatinine Glucose POC Glucose 120 H 66 L Lactic Acid Uric Acid Calcium Phosphorus Iron TIBC Erythropoietin Ferritin Total Bilirubin Direct Bilirubin AST ALT Alkaline Phosphatase Lactate Dehydrogenase C-Reactive Protein Serum Total Protein Total Protein Albumin Rhttl-3-Ejfruxhmg Abnorm Protein Band 1 PEP Interpretation Crossmatch 10/16/16 10/16/16 10/16/16 09:13 10:06 10:57 WBC RBC Hgb Hct MCV MCHC RDW Plt Count Seg Neuts % (Manual) Lymphocytes % (Manual) Nucleated RBC % Seg Neutrophils # Man Lymphocytes # (Manual) Haptoglobin PT INR Fibrinogen Lupus Anticoagulant LA PTT Baseline POC ABG pH POC ABG pCO2 POC ABG pO2 Sodium Potassium Chloride Carbon Dioxide BUN Creatinine Glucose POC Glucose 147 H 137 H 140 H Lactic Acid Uric Acid Calcium Phosphorus Iron TIBC Erythropoietin Ferritin Total Bilirubin Direct Bilirubin AST ALT Alkaline Phosphatase Lactate Dehydrogenase C-Reactive Protein Serum Total Protein Total Protein Albumin Iqgoa-2-Xnlplzfhd Abnorm Protein Band 1 PEP Interpretation Crossmatch 10/16/16 10/16/16 10/16/16 11:15 11:15 11:15 WBC 25.8 H RBC 2.30 L Hgb 7.0 L Hct 22.3 L MCV 97 H MCHC 31 L RDW 21.2 H Plt Count 42 L Seg Neuts % (Manual) Lymphocytes % (Manual) 3.0 L Nucleated RBC % 2.0 H Seg Neutrophils # Man 11.1 H Lymphocytes # (Manual) 0.8 L Haptoglobin PT INR Fibrinogen Lupus Anticoagulant LA PTT Baseline POC ABG pH POC ABG pCO2 POC ABG pO2 Sodium Potassium Chloride 81.7 L Carbon Dioxide 13 L D BUN 61 H Creatinine 6.2 H Glucose 171 H POC Glucose Lactic Acid 22.70 H* Uric Acid Calcium 7.1 L Phosphorus 9.10 H Iron TIBC Erythropoietin Ferritin Total Bilirubin Direct Bilirubin AST ALT Alkaline Phosphatase Lactate Dehydrogenase C-Reactive Protein Serum Total Protein Total Protein Albumin Awoab-9-Jzobarwvy Abnorm Protein Band 1 PEP Interpretation Crossmatch 10/16/16 10/16/16 10/16/16 15:10 15:50 18:11 WBC RBC Hgb Hct MCV MCHC RDW Plt Count Seg Neuts % (Manual) Lymphocytes % (Manual) Nucleated RBC % Seg Neutrophils # Man Lymphocytes # (Manual) Haptoglobin PT INR Fibrinogen Lupus Anticoagulant LA PTT Baseline POC ABG pH POC ABG pCO2 POC ABG pO2 Sodium Potassium Chloride Carbon Dioxide BUN Creatinine Glucose POC Glucose 47 L 164 H 58 L Lactic Acid Uric Acid Calcium Phosphorus Iron TIBC Erythropoietin Ferritin Total Bilirubin Direct Bilirubin AST ALT Alkaline Phosphatase Lactate Dehydrogenase C-Reactive Protein Serum Total Protein Total Protein Albumin Kndxy-1-Vyypcpqjp Abnorm Protein Band 1 PEP Interpretation Crossmatch 10/16/16 10/16/16 10/17/16 18:26 21:06 00:06 WBC RBC Hgb Hct MCV MCHC RDW Plt Count Seg Neuts % (Manual) Lymphocytes % (Manual) Nucleated RBC % Seg Neutrophils # Man Lymphocytes # (Manual) Haptoglobin PT INR Fibrinogen Lupus Anticoagulant LA PTT Baseline POC ABG pH POC ABG pCO2 POC ABG pO2 489 H Sodium Potassium Chloride Carbon Dioxide BUN Creatinine Glucose POC Glucose 52 L 120 H Lactic Acid Uric Acid Calcium Phosphorus Iron TIBC Erythropoietin Ferritin Total Bilirubin Direct Bilirubin AST ALT Alkaline Phosphatase Lactate Dehydrogenase C-Reactive Protein Serum Total Protein Total Protein Albumin Wyqil-4-Odpdaaddt Abnorm Protein Band 1 PEP Interpretation Crossmatch 10/17/16 10/17/16 10/17/16 04:55 04:55 05:04 WBC 25.5 H RBC 2.23 L Hgb 6.6 L Hct 21.2 L MCV 95 H MCHC 31 L RDW 20.5 H Plt Count 35 L Seg Neuts % (Manual) 79.0 H Lymphocytes % (Manual) 0 L Nucleated RBC % Seg Neutrophils # Man 20.1 H Lymphocytes # (Manual) 0.0 L Haptoglobin PT INR Fibrinogen Lupus Anticoagulant LA PTT Baseline POC ABG pH POC ABG pCO2 27.2 L POC ABG pO2 162 H Sodium Potassium Chloride 91.5 L Carbon Dioxide 16 L BUN 45 H Creatinine 4.5 H Glucose 103 H POC Glucose Lactic Acid Uric Acid Calcium 6.9 L Phosphorus 5.80 H D Iron TIBC Erythropoietin Ferritin Total Bilirubin Direct Bilirubin AST ALT Alkaline Phosphatase Lactate Dehydrogenase C-Reactive Protein Serum Total Protein Total Protein Albumin Qrqzd-0-Tpitplchr Abnorm Protein Band 1 PEP Interpretation Crossmatch 10/17/16 10/17/16 10/17/16 07:59 09:04 10:04 WBC RBC Hgb Hct MCV MCHC RDW Plt Count Seg Neuts % (Manual) Lymphocytes % (Manual) Nucleated RBC % Seg Neutrophils # Man Lymphocytes # (Manual) Haptoglobin PT INR Fibrinogen Lupus Anticoagulant LA PTT Baseline POC ABG pH POC ABG pCO2 POC ABG pO2 Sodium Potassium Chloride Carbon Dioxide BUN Creatinine Glucose POC Glucose 65 L 118 H Lactic Acid Uric Acid Calcium Phosphorus Iron TIBC Erythropoietin Ferritin Total Bilirubin Direct Bilirubin AST ALT Alkaline Phosphatase Lactate Dehydrogenase C-Reactive Protein Serum Total Protein Total Protein Albumin Qdruh-4-Wanouyudw Abnorm Protein Band 1 PEP Interpretation Crossmatch See Detail 10/17/16 10/17/16 10/17/16 11:52 13:08 15:42 WBC RBC Hgb Hct MCV MCHC RDW Plt Count Seg Neuts % (Manual) Lymphocytes % (Manual) Nucleated RBC % Seg Neutrophils # Man Lymphocytes # (Manual) Haptoglobin PT INR Fibrinogen Lupus Anticoagulant LA PTT Baseline POC ABG pH POC ABG pCO2 POC ABG pO2 Sodium Potassium Chloride Carbon Dioxide BUN Creatinine Glucose POC Glucose 125 H 106 H 55 L Lactic Acid Uric Acid Calcium Phosphorus Iron TIBC Erythropoietin Ferritin Total Bilirubin Direct Bilirubin AST ALT Alkaline Phosphatase Lactate Dehydrogenase C-Reactive Protein Serum Total Protein Total Protein Albumin Gsevw-9-Szirezbvx Abnorm Protein Band 1 PEP Interpretation Crossmatch 10/17/16 10/17/16 10/17/16 17:39 20:37 21:02 WBC RBC Hgb Hct MCV MCHC RDW Plt Count Seg Neuts % (Manual) Lymphocytes % (Manual) Nucleated RBC % Seg Neutrophils # Man Lymphocytes # (Manual) Haptoglobin PT INR Fibrinogen Lupus Anticoagulant LA PTT Baseline POC ABG pH POC ABG pCO2 28.2 L POC ABG pO2 Sodium Potassium Chloride Carbon Dioxide BUN Creatinine Glucose POC Glucose < 40 L 106 H Lactic Acid Uric Acid Calcium Phosphorus Iron TIBC Erythropoietin Ferritin Total Bilirubin Direct Bilirubin AST ALT Alkaline Phosphatase Lactate Dehydrogenase C-Reactive Protein Serum Total Protein Total Protein Albumin Goufo-3-Rpzedkkpa Abnorm Protein Band 1 PEP Interpretation Crossmatch 10/17/16 10/17/16 10/18/16 22:18 23:14 00:28 WBC RBC Hgb Hct MCV MCHC RDW Plt Count Seg Neuts % (Manual) Lymphocytes % (Manual) Nucleated RBC % Seg Neutrophils # Man Lymphocytes # (Manual) Haptoglobin PT INR Fibrinogen Lupus Anticoagulant LA PTT Baseline POC ABG pH POC ABG pCO2 POC ABG pO2 Sodium Potassium Chloride Carbon Dioxide BUN Creatinine Glucose POC Glucose 111 H 118 H 112 H Lactic Acid Uric Acid Calcium Phosphorus Iron TIBC Erythropoietin Ferritin Total Bilirubin Direct Bilirubin AST ALT Alkaline Phosphatase Lactate Dehydrogenase C-Reactive Protein Serum Total Protein Total Protein Albumin Ovmbc-7-Ogedxejvs Abnorm Protein Band 1 PEP Interpretation Crossmatch 10/18/16 10/18/16 10/18/16 05:00 05:00 05:15 WBC 27.3 H RBC 2.75 L Hgb 7.9 L Hct 25.3 L MCV MCHC 31 L RDW 20.7 H Plt Count 31 L Seg Neuts % (Manual) 87.0 H Lymphocytes % (Manual) 1.0 L Nucleated RBC % 1.0 H Seg Neutrophils # Man 23.8 H Lymphocytes # (Manual) 0.3 L Haptoglobin PT INR Fibrinogen Lupus Anticoagulant LA PTT Baseline POC ABG pH 7.466 H POC ABG pCO2 25.1 L POC ABG pO2 Sodium Potassium Chloride 88.7 L Carbon Dioxide 18 L BUN 66 H Creatinine 4.7 H Glucose POC Glucose Lactic Acid Uric Acid Calcium 6.1 L Phosphorus 7.30 H D Iron TIBC Erythropoietin Ferritin Total Bilirubin Direct Bilirubin AST ALT Alkaline Phosphatase Lactate Dehydrogenase C-Reactive Protein Serum Total Protein Total Protein Albumin Repsf-2-Zvunbpjxd Abnorm Protein Band 1 PEP Interpretation Crossmatch 10/18/16 10/18/16 10/18/16 07:15 07:44 09:07 WBC RBC Hgb Hct MCV MCHC RDW Plt Count Seg Neuts % (Manual) Lymphocytes % (Manual) Nucleated RBC % Seg Neutrophils # Man Lymphocytes # (Manual) Haptoglobin PT INR Fibrinogen Lupus Anticoagulant LA PTT Baseline POC ABG pH POC ABG pCO2 POC ABG pO2 Sodium Potassium Chloride Carbon Dioxide BUN Creatinine Glucose POC Glucose 64 L 156 H 117 H Lactic Acid Uric Acid Calcium Phosphorus Iron TIBC Erythropoietin Ferritin Total Bilirubin Direct Bilirubin AST ALT Alkaline Phosphatase Lactate Dehydrogenase C-Reactive Protein Serum Total Protein Total Protein Albumin Xickl-4-Cvhmesfxe Abnorm Protein Band 1 PEP Interpretation Crossmatch 10/18/16 10/18/16 10/18/16 09:15 14:00 18:21 WBC RBC Hgb Hct MCV MCHC RDW Plt Count Seg Neuts % (Manual) Lymphocytes % (Manual) Nucleated RBC % Seg Neutrophils # Man Lymphocytes # (Manual) Haptoglobin PT INR Fibrinogen Lupus Anticoagulant LA PTT Baseline POC ABG pH POC ABG pCO2 POC ABG pO2 Sodium Potassium Chloride Carbon Dioxide BUN Creatinine Glucose POC Glucose 106 H 112 H Lactic Acid 14.30 H* Uric Acid Calcium Phosphorus Iron TIBC Erythropoietin Ferritin Total Bilirubin Direct Bilirubin AST ALT Alkaline Phosphatase Lactate Dehydrogenase C-Reactive Protein Serum Total Protein Total Protein Albumin Zvkxs-7-Dgnutlbeo Abnorm Protein Band 1 PEP Interpretation Crossmatch 10/18/16 10/18/16 10/18/16 19:58 20:55 22:11 WBC RBC Hgb Hct MCV MCHC RDW Plt Count Seg Neuts % (Manual) Lymphocytes % (Manual) Nucleated RBC % Seg Neutrophils # Man Lymphocytes # (Manual) Haptoglobin PT INR Fibrinogen Lupus Anticoagulant LA PTT Baseline POC ABG pH POC ABG pCO2 POC ABG pO2 Sodium Potassium Chloride Carbon Dioxide BUN Creatinine Glucose POC Glucose 127 H 125 H 159 H Lactic Acid Uric Acid Calcium Phosphorus Iron TIBC Erythropoietin Ferritin Total Bilirubin Direct Bilirubin AST ALT Alkaline Phosphatase Lactate Dehydrogenase C-Reactive Protein Serum Total Protein Total Protein Albumin Kerux-1-Lodghgptv Abnorm Protein Band 1 PEP Interpretation Crossmatch 10/18/16 10/18/16 10/19/16 23:11 23:57 01:06 WBC RBC Hgb Hct MCV MCHC RDW Plt Count Seg Neuts % (Manual) Lymphocytes % (Manual) Nucleated RBC % Seg Neutrophils # Man Lymphocytes # (Manual) Haptoglobin PT INR Fibrinogen Lupus Anticoagulant LA PTT Baseline POC ABG pH POC ABG pCO2 POC ABG pO2 Sodium Potassium Chloride Carbon Dioxide BUN Creatinine Glucose POC Glucose 122 H 137 H 162 H Lactic Acid Uric Acid Calcium Phosphorus Iron TIBC Erythropoietin Ferritin Total Bilirubin Direct Bilirubin AST ALT Alkaline Phosphatase Lactate Dehydrogenase C-Reactive Protein Serum Total Protein Total Protein Albumin Rilzx-0-Pydydqqvr Abnorm Protein Band 1 PEP Interpretation Crossmatch 10/19/16 10/19/16 10/19/16 01:59 03:07 04:10 WBC RBC Hgb Hct MCV MCHC RDW Plt Count Seg Neuts % (Manual) Lymphocytes % (Manual) Nucleated RBC % Seg Neutrophils # Man Lymphocytes # (Manual) Haptoglobin PT INR Fibrinogen Lupus Anticoagulant LA PTT Baseline POC ABG pH POC ABG pCO2 POC ABG pO2 Sodium Potassium Chloride Carbon Dioxide BUN Creatinine Glucose POC Glucose 154 H 178 H 186 H Lactic Acid Uric Acid Calcium Phosphorus Iron TIBC Erythropoietin Ferritin Total Bilirubin Direct Bilirubin AST ALT Alkaline Phosphatase Lactate Dehydrogenase C-Reactive Protein Serum Total Protein Total Protein Albumin Zkjps-6-Whyrkjuvh Abnorm Protein Band 1 PEP Interpretation Crossmatch 10/19/16 10/19/16 10/19/16 05:14 05:15 05:47 WBC RBC Hgb Hct MCV MCHC RDW Plt Count Seg Neuts % (Manual) Lymphocytes % (Manual) Nucleated RBC % Seg Neutrophils # Man Lymphocytes # (Manual) Haptoglobin PT INR Fibrinogen Lupus Anticoagulant LA PTT Baseline POC ABG pH 7.581 H POC ABG pCO2 22.9 L POC ABG pO2 58 L Sodium Potassium Chloride Carbon Dioxide BUN Creatinine Glucose POC Glucose 197 H 204 H Lactic Acid Uric Acid Calcium Phosphorus Iron TIBC Erythropoietin Ferritin Total Bilirubin Direct Bilirubin AST ALT Alkaline Phosphatase Lactate Dehydrogenase C-Reactive Protein Serum Total Protein Total Protein Albumin Fiwyb-6-Ywxidkgmg Abnorm Protein Band 1 PEP Interpretation Crossmatch 10/19/16 10/19/16 10/19/16 06:00 06:00 07:51 WBC 23.0 H RBC 2.54 L Hgb 7.5 L Hct 23.0 L MCV MCHC RDW 20.7 H Plt Count 25 L Seg Neuts % (Manual) 91.0 H Lymphocytes % (Manual) 2.0 L Nucleated RBC % 1.0 H Seg Neutrophils # Man 20.9 H Lymphocytes # (Manual) 0.5 L Haptoglobin PT INR Fibrinogen Lupus Anticoagulant LA PTT Baseline POC ABG pH POC ABG pCO2 POC ABG pO2 Sodium Potassium Chloride 88.7 L Carbon Dioxide 21 L BUN 70 H Creatinine 3.9 H Glucose 189 H POC Glucose 145 H Lactic Acid Uric Acid Calcium 5.6 L* Phosphorus 6.30 H Iron TIBC Erythropoietin Ferritin Total Bilirubin Direct Bilirubin AST ALT Alkaline Phosphatase Lactate Dehydrogenase C-Reactive Protein Serum Total Protein Total Protein Albumin Hfobu-6-Kpqwjmspo Abnorm Protein Band 1 PEP Interpretation Crossmatch 10/19/16 10/19/16 10/19/16 09:14 10:01 12:14 WBC RBC Hgb Hct MCV MCHC RDW Plt Count Seg Neuts % (Manual) Lymphocytes % (Manual) Nucleated RBC % Seg Neutrophils # Man Lymphocytes # (Manual) Haptoglobin PT INR Fibrinogen Lupus Anticoagulant LA PTT Baseline POC ABG pH POC ABG pCO2 POC ABG pO2 Sodium Potassium Chloride Carbon Dioxide BUN Creatinine Glucose POC Glucose 173 H 153 H 180 H Lactic Acid Uric Acid Calcium Phosphorus Iron TIBC Erythropoietin Ferritin Total Bilirubin Direct Bilirubin AST ALT Alkaline Phosphatase Lactate Dehydrogenase C-Reactive Protein Serum Total Protein Total Protein Albumin Jlgla-2-Ajjxssbnt Abnorm Protein Band 1 PEP Interpretation Crossmatch 10/19/16 10/19/16 10/19/16 14:15 16:38 20:27 WBC RBC Hgb Hct MCV MCHC RDW Plt Count Seg Neuts % (Manual) Lymphocytes % (Manual) Nucleated RBC % Seg Neutrophils # Man Lymphocytes # (Manual) Haptoglobin PT INR Fibrinogen Lupus Anticoagulant LA PTT Baseline POC ABG pH POC ABG pCO2 POC ABG pO2 Sodium Potassium Chloride Carbon Dioxide BUN Creatinine Glucose POC Glucose 194 H 202 H Lactic Acid Uric Acid Calcium Phosphorus Iron TIBC Erythropoietin 148.2 H Ferritin Total Bilirubin Direct Bilirubin AST ALT Alkaline Phosphatase Lactate Dehydrogenase C-Reactive Protein Serum Total Protein Total Protein Albumin Djrku-3-Yadxjsipu Abnorm Protein Band 1 PEP Interpretation Crossmatch 10/19/16 10/20/16 10/20/16 23:27 04:06 05:00 WBC RBC Hgb Hct MCV MCHC RDW Plt Count Seg Neuts % (Manual) Lymphocytes % (Manual) Nucleated RBC % Seg Neutrophils # Man Lymphocytes # (Manual) Haptoglobin PT INR Fibrinogen Lupus Anticoagulant LA PTT Baseline POC ABG pH POC ABG pCO2 POC ABG pO2 Sodium Potassium Chloride 88.8 L Carbon Dioxide BUN 93 H Creatinine 4.3 H Glucose 204 H POC Glucose 201 H 200 H Lactic Acid Uric Acid Calcium 5.2 L* Phosphorus Iron TIBC Erythropoietin Ferritin Total Bilirubin Direct Bilirubin AST ALT Alkaline Phosphatase Lactate Dehydrogenase C-Reactive Protein Serum Total Protein Total Protein Albumin Gtano-2-Oiyxjgwdy Abnorm Protein Band 1 PEP Interpretation Crossmatch 10/20/16 10/20/16 10/20/16 05:16 06:00 07:43 WBC 24.8 H RBC 2.52 L Hgb 7.4 L Hct 22.9 L MCV MCHC RDW 19.9 H Plt Count 23 L Seg Neuts % (Manual) 97.0 H Lymphocytes % (Manual) 1.0 L Nucleated RBC % 9.0 H Seg Neutrophils # Man 24.1 H Lymphocytes # (Manual) 0.2 L Haptoglobin PT INR Fibrinogen Lupus Anticoagulant LA PTT Baseline POC ABG pH 7.463 H POC ABG pCO2 POC ABG pO2 157 H Sodium Potassium Chloride Carbon Dioxide BUN Creatinine Glucose POC Glucose 192 H Lactic Acid Uric Acid Calcium Phosphorus Iron TIBC Erythropoietin Ferritin Total Bilirubin Direct Bilirubin AST ALT Alkaline Phosphatase Lactate Dehydrogenase C-Reactive Protein Serum Total Protein Total Protein Albumin Jhjqm-3-Nzvmolemw Abnorm Protein Band 1 PEP Interpretation Crossmatch 10/20/16 10/20/16 10/20/16 12:11 15:32 21:23 WBC RBC Hgb Hct MCV MCHC RDW Plt Count Seg Neuts % (Manual) Lymphocytes % (Manual) Nucleated RBC % Seg Neutrophils # Man Lymphocytes # (Manual) Haptoglobin PT INR Fibrinogen Lupus Anticoagulant LA PTT Baseline POC ABG pH POC ABG pCO2 POC ABG pO2 Sodium Potassium Chloride Carbon Dioxide BUN Creatinine Glucose POC Glucose 172 H 216 H 271 H Lactic Acid Uric Acid Calcium Phosphorus Iron TIBC Erythropoietin Ferritin Total Bilirubin Direct Bilirubin AST ALT Alkaline Phosphatase Lactate Dehydrogenase C-Reactive Protein Serum Total Protein Total Protein Albumin Mewre-0-Qrhnixrhm Abnorm Protein Band 1 PEP Interpretation Crossmatch 10/20/16 10/21/16 10/21/16 23:49 03:53 04:58 WBC RBC Hgb Hct MCV MCHC RDW Plt Count Seg Neuts % (Manual) Lymphocytes % (Manual) Nucleated RBC % Seg Neutrophils # Man Lymphocytes # (Manual) Haptoglobin PT INR Fibrinogen Lupus Anticoagulant LA PTT Baseline POC ABG pH 7.459 H POC ABG pCO2 POC ABG pO2 113 H Sodium 136 L Potassium 2.8 L* D Chloride 91.6 L Carbon Dioxide BUN 62 H Creatinine 2.8 H Glucose 236 H POC Glucose 317 H Lactic Acid Uric Acid Calcium 6.2 L D Phosphorus Iron TIBC Erythropoietin Ferritin Total Bilirubin 2.70 H Direct Bilirubin AST 73 H ALT 57 H Alkaline Phosphatase 158 H Lactate Dehydrogenase C-Reactive Protein Serum Total Protein Total Protein 4.9 L Albumin 2.6 L Todqc-3-Nlpnzlhlu Abnorm Protein Band 1 PEP Interpretation Crossmatch 10/21/16 10/21/16 10/21/16 05:25 07:11 10:30 WBC 28.1 H RBC 2.36 L Hgb 7.0 L Hct 21.6 L MCV MCHC RDW 20.0 H Plt Count 14 L* Seg Neuts % (Manual) 92.0 H Lymphocytes % (Manual) 0 L Nucleated RBC % 5.0 H Seg Neutrophils # Man 25.9 H Lymphocytes # (Manual) 0.0 L Haptoglobin PT INR Fibrinogen Lupus Anticoagulant LA PTT Baseline POC ABG pH POC ABG pCO2 POC ABG pO2 Sodium Potassium Chloride Carbon Dioxide BUN Creatinine Glucose POC Glucose 237 H 206 H Lactic Acid Uric Acid Calcium Phosphorus Iron TIBC Erythropoietin Ferritin Total Bilirubin Direct Bilirubin AST ALT Alkaline Phosphatase Lactate Dehydrogenase C-Reactive Protein Serum Total Protein Total Protein Albumin Ijkuf-3-Rrqmxthtt Abnorm Protein Band 1 PEP Interpretation Crossmatch 10/21/16 10/21/16 10/21/16 11:25 12:31 16:33 WBC RBC Hgb Hct MCV MCHC RDW Plt Count Seg Neuts % (Manual) Lymphocytes % (Manual) Nucleated RBC % Seg Neutrophils # Man Lymphocytes # (Manual) Haptoglobin PT 49.1 H INR 5.28 H* Fibrinogen Lupus Anticoagulant LA PTT Baseline POC ABG pH POC ABG pCO2 POC ABG pO2 Sodium Potassium Chloride Carbon Dioxide BUN Creatinine Glucose POC Glucose 145 H 151 H Lactic Acid Uric Acid Calcium Phosphorus Iron TIBC Erythropoietin Ferritin Total Bilirubin Direct Bilirubin AST ALT Alkaline Phosphatase Lactate Dehydrogenase C-Reactive Protein Serum Total Protein Total Protein Albumin Ccqzu-6-Teeytkiul Abnorm Protein Band 1 PEP Interpretation Crossmatch 10/21/16 10/22/16 10/22/16 19:53 00:00 05:23 WBC RBC Hgb Hct MCV MCHC RDW Plt Count Seg Neuts % (Manual) Lymphocytes % (Manual) Nucleated RBC % Seg Neutrophils # Man Lymphocytes # (Manual) Haptoglobin PT INR Fibrinogen Lupus Anticoagulant LA PTT Baseline POC ABG pH POC ABG pCO2 POC ABG pO2 Sodium Potassium Chloride Carbon Dioxide BUN Creatinine Glucose POC Glucose 170 H 168 H 131 H Lactic Acid Uric Acid Calcium Phosphorus Iron TIBC Erythropoietin Ferritin Total Bilirubin Direct Bilirubin AST ALT Alkaline Phosphatase Lactate Dehydrogenase C-Reactive Protein Serum Total Protein Total Protein Albumin Fevin-2-Qrsgnmwdg Abnorm Protein Band 1 PEP Interpretation Crossmatch 10/22/16 10/22/16 10/22/16 05:25 05:35 13:03 WBC RBC Hgb Hct MCV MCHC RDW Plt Count Seg Neuts % (Manual) Lymphocytes % (Manual) Nucleated RBC % Seg Neutrophils # Man Lymphocytes # (Manual) Haptoglobin PT INR Fibrinogen Lupus Anticoagulant LA PTT Baseline POC ABG pH 7.462 H POC ABG pCO2 POC ABG pO2 Sodium 135 L Potassium 3.0 L Chloride 88.5 L Carbon Dioxide BUN 84 H Creatinine 3.4 H Glucose 124 H POC Glucose 164 H Lactic Acid Uric Acid Calcium 5.9 L* Phosphorus Iron TIBC Erythropoietin Ferritin Total Bilirubin 2.00 H Direct Bilirubin AST 85 H ALT Alkaline Phosphatase 199 H Lactate Dehydrogenase C-Reactive Protein Serum Total Protein Total Protein 5.0 L Albumin 2.5 L Rcthr-5-Lrovtcldy Abnorm Protein Band 1 PEP Interpretation Crossmatch 10/22/16 10/22/16 10/23/16 17:14 23:16 04:47 WBC RBC Hgb Hct MCV MCHC RDW Plt Count Seg Neuts % (Manual) Lymphocytes % (Manual) Nucleated RBC % Seg Neutrophils # Man Lymphocytes # (Manual) Haptoglobin PT INR Fibrinogen Lupus Anticoagulant LA PTT Baseline POC ABG pH 7.476 H POC ABG pCO2 POC ABG pO2 108 H Sodium Potassium Chloride Carbon Dioxide BUN Creatinine Glucose POC Glucose 188 H 167 H Lactic Acid Uric Acid Calcium Phosphorus Iron TIBC Erythropoietin Ferritin Total Bilirubin Direct Bilirubin AST ALT Alkaline Phosphatase Lactate Dehydrogenase C-Reactive Protein Serum Total Protein Total Protein Albumin Kpndc-8-Twpqxdnfq Abnorm Protein Band 1 PEP Interpretation Crossmatch 10/23/16 10/23/16 10/23/16 05:49 07:00 07:12 WBC 24.2 H RBC 2.27 L Hgb 7.0 L Hct 21.1 L MCV MCHC RDW 19.7 H Plt Count 35 L D Seg Neuts % (Manual) Lymphocytes % (Manual) Nucleated RBC % Seg Neutrophils # Man Lymphocytes # (Manual) Haptoglobin PT INR Fibrinogen Lupus Anticoagulant LA PTT Baseline POC ABG pH POC ABG pCO2 POC ABG pO2 Sodium Potassium 3.5 L Chloride 95.7 L Carbon Dioxide BUN 55 H Creatinine 2.7 H Glucose 103 H POC Glucose 106 H Lactic Acid Uric Acid Calcium 7.1 L D Phosphorus Iron TIBC Erythropoietin Ferritin Total Bilirubin Direct Bilirubin AST ALT Alkaline Phosphatase Lactate Dehydrogenase C-Reactive Protein Serum Total Protein Total Protein Albumin Aejsd-4-Ihzszzevk Abnorm Protein Band 1 PEP Interpretation Crossmatch 10/24/16 10/24/16 10/24/16 00:12 05:16 07:00 WBC 17.9 H RBC 2.12 L Hgb 6.5 L Hct 19.9 L* MCV MCHC RDW 19.3 H Plt Count 44 L Seg Neuts % (Manual) Lymphocytes % (Manual) Nucleated RBC % Seg Neutrophils # Man Lymphocytes # (Manual) Haptoglobin PT INR Fibrinogen Lupus Anticoagulant LA PTT Baseline POC ABG pH POC ABG pCO2 POC ABG pO2 Sodium Potassium Chloride Carbon Dioxide BUN Creatinine Glucose POC Glucose 116 H 135 H Lactic Acid Uric Acid Calcium Phosphorus Iron TIBC Erythropoietin Ferritin Total Bilirubin Direct Bilirubin AST ALT Alkaline Phosphatase Lactate Dehydrogenase C-Reactive Protein Serum Total Protein Total Protein Albumin Ccbdx-2-Ujslkeczu Abnorm Protein Band 1 PEP Interpretation Crossmatch 10/24/16 10/24/16 10/24/16 07:00 11:45 12:12 WBC RBC Hgb Hct MCV MCHC RDW Plt Count Seg Neuts % (Manual) Lymphocytes % (Manual) Nucleated RBC % Seg Neutrophils # Man Lymphocytes # (Manual) Haptoglobin PT INR Fibrinogen Lupus Anticoagulant LA PTT Baseline POC ABG pH POC ABG pCO2 POC ABG pO2 Sodium Potassium Chloride 92.9 L Carbon Dioxide BUN 74 H Creatinine 3.3 H Glucose 136 H POC Glucose 177 H Lactic Acid Uric Acid Calcium 6.6 L Phosphorus Iron TIBC Erythropoietin Ferritin Total Bilirubin 2.10 H Direct Bilirubin AST 68 H ALT Alkaline Phosphatase 224 H Lactate Dehydrogenase C-Reactive Protein Serum Total Protein Total Protein 4.8 L Albumin 2.3 L Meioy-2-Zivalfnzc Abnorm Protein Band 1 PEP Interpretation Crossmatch See Detail 10/24/16 10/24/16 10/24/16 16:30 16:30 17:28 WBC RBC Hgb Hct MCV MCHC RDW Plt Count Seg Neuts % (Manual) Lymphocytes % (Manual) Nucleated RBC % Seg Neutrophils # Man Lymphocytes # (Manual) Haptoglobin PT INR Fibrinogen Lupus Anticoagulant LA PTT Baseline POC ABG pH POC ABG pCO2 POC ABG pO2 Sodium Potassium Chloride Carbon Dioxide BUN Creatinine Glucose POC Glucose 128 H Lactic Acid 3.00 H* Uric Acid Calcium Phosphorus Iron TIBC Erythropoietin Ferritin Total Bilirubin Direct Bilirubin AST ALT Alkaline Phosphatase Lactate Dehydrogenase C-Reactive Protein 7.40 H Serum Total Protein Total Protein Albumin Cmtmo-9-Kfucvayrf Abnorm Protein Band 1 PEP Interpretation Crossmatch 10/24/16 10/24/16 10/25/16 18:40 23:32 05:00 WBC 17.5 H RBC 2.99 L Hgb 9.1 L Hct 26.9 L D MCV MCHC RDW 17.7 H Plt Count 53 L Seg Neuts % (Manual) Lymphocytes % (Manual) Nucleated RBC % Seg Neutrophils # Man Lymphocytes # (Manual) Haptoglobin PT INR Fibrinogen Lupus Anticoagulant LA PTT Baseline POC ABG pH POC ABG pCO2 POC ABG pO2 Sodium Potassium Chloride Carbon Dioxide BUN Creatinine Glucose POC Glucose 140 H Lactic Acid 3.10 H* Uric Acid Calcium Phosphorus Iron TIBC Erythropoietin Ferritin Total Bilirubin Direct Bilirubin AST ALT Alkaline Phosphatase Lactate Dehydrogenase C-Reactive Protein Serum Total Protein Total Protein Albumin Ssurq-8-Sopkhljps Abnorm Protein Band 1 PEP Interpretation Crossmatch 10/25/16 10/25/16 10/25/16 05:00 05:22 11:58 WBC RBC Hgb Hct MCV MCHC RDW Plt Count Seg Neuts % (Manual) Lymphocytes % (Manual) Nucleated RBC % Seg Neutrophils # Man Lymphocytes # (Manual) Haptoglobin PT INR Fibrinogen Lupus Anticoagulant LA PTT Baseline POC ABG pH POC ABG pCO2 POC ABG pO2 Sodium Potassium Chloride 91.6 L Carbon Dioxide BUN 89 H Creatinine 3.9 H Glucose 150 H POC Glucose 164 H 189 H Lactic Acid Uric Acid Calcium 6.9 L Phosphorus Iron TIBC Erythropoietin Ferritin Total Bilirubin Direct Bilirubin AST ALT Alkaline Phosphatase Lactate Dehydrogenase C-Reactive Protein Serum Total Protein Total Protein Albumin Ojxks-9-Mswpyzymi Abnorm Protein Band 1 PEP Interpretation Crossmatch 10/25/16 10/25/16 10/26/16 17:56 23:12 04:00 WBC RBC Hgb Hct MCV MCHC RDW Plt Count Seg Neuts % (Manual) Lymphocytes % (Manual) Nucleated RBC % Seg Neutrophils # Man Lymphocytes # (Manual) Haptoglobin PT INR Fibrinogen Lupus Anticoagulant LA PTT Baseline POC ABG pH POC ABG pCO2 POC ABG pO2 Sodium 135 L Potassium Chloride 90.7 L Carbon Dioxide BUN 64 H Creatinine 2.9 H Glucose 132 H POC Glucose 156 H 133 H Lactic Acid Uric Acid Calcium 7.3 L Phosphorus Iron TIBC Erythropoietin Ferritin Total Bilirubin Direct Bilirubin AST ALT Alkaline Phosphatase Lactate Dehydrogenase C-Reactive Protein Serum Total Protein Total Protein Albumin Csodi-3-Qcvyjsxqf Abnorm Protein Band 1 PEP Interpretation Crossmatch 10/26/16 10/26/16 10/26/16 05:14 06:15 11:51 WBC 18.6 H RBC 3.15 L Hgb 9.6 L Hct 29.0 L MCV MCHC RDW 17.8 H Plt Count 71 L Seg Neuts % (Manual) 85.0 H Lymphocytes % (Manual) 1.0 L Nucleated RBC % Seg Neutrophils # Man 15.8 H Lymphocytes # (Manual) 0.2 L Haptoglobin PT INR Fibrinogen Lupus Anticoagulant LA PTT Baseline POC ABG pH POC ABG pCO2 POC ABG pO2 Sodium Potassium Chloride Carbon Dioxide BUN Creatinine Glucose POC Glucose 130 H 139 H Lactic Acid Uric Acid Calcium Phosphorus Iron TIBC Erythropoietin Ferritin Total Bilirubin Direct Bilirubin AST ALT Alkaline Phosphatase Lactate Dehydrogenase C-Reactive Protein Serum Total Protein Total Protein Albumin Wpyvg-8-Hoekeflfa Abnorm Protein Band 1 PEP Interpretation Crossmatch 10/26/16 10/26/16 10/27/16 17:25 23:35 04:10 WBC 16.8 H RBC 3.38 L Hgb 10.1 L Hct 31.0 L MCV MCHC RDW 18.0 H Plt Count 77 L Seg Neuts % (Manual) 92.0 H Lymphocytes % (Manual) 1.0 L Nucleated RBC % 1.0 H Seg Neutrophils # Man 15.5 H Lymphocytes # (Manual) 0.2 L Haptoglobin PT INR Fibrinogen Lupus Anticoagulant LA PTT Baseline POC ABG pH POC ABG pCO2 POC ABG pO2 Sodium Potassium Chloride Carbon Dioxide BUN Creatinine Glucose POC Glucose 118 H 145 H Lactic Acid Uric Acid Calcium Phosphorus Iron TIBC Erythropoietin Ferritin Total Bilirubin Direct Bilirubin AST ALT Alkaline Phosphatase Lactate Dehydrogenase C-Reactive Protein Serum Total Protein Total Protein Albumin Ialbx-4-Ddxcxcvjb Abnorm Protein Band 1 PEP Interpretation Crossmatch 10/27/16 10/27/16 10/27/16 04:10 05:53 08:14 WBC RBC Hgb Hct MCV MCHC RDW Plt Count Seg Neuts % (Manual) Lymphocytes % (Manual) Nucleated RBC % Seg Neutrophils # Man Lymphocytes # (Manual) Haptoglobin PT 23.0 H INR 2.03 H Fibrinogen Lupus Anticoagulant LA PTT Baseline POC ABG pH POC ABG pCO2 POC ABG pO2 Sodium Potassium Chloride 95.5 L Carbon Dioxide BUN 63 H Creatinine 2.8 H Glucose 112 H POC Glucose 127 H Lactic Acid Uric Acid Calcium 7.5 L Phosphorus Iron TIBC Erythropoietin Ferritin Total Bilirubin Direct Bilirubin AST ALT Alkaline Phosphatase Lactate Dehydrogenase C-Reactive Protein Serum Total Protein Total Protein Albumin Nqrgw-9-Lzfdqrfas Abnorm Protein Band 1 PEP Interpretation Crossmatch 10/27/16 10/27/16 10/27/16 11:56 17:47 23:55 WBC RBC Hgb Hct MCV MCHC RDW Plt Count Seg Neuts % (Manual) Lymphocytes % (Manual) Nucleated RBC % Seg Neutrophils # Man Lymphocytes # (Manual) Haptoglobin PT INR Fibrinogen Lupus Anticoagulant LA PTT Baseline POC ABG pH POC ABG pCO2 POC ABG pO2 Sodium Potassium Chloride Carbon Dioxide BUN Creatinine Glucose POC Glucose 113 H 117 H 142 H Lactic Acid Uric Acid Calcium Phosphorus Iron TIBC Erythropoietin Ferritin Total Bilirubin Direct Bilirubin AST ALT Alkaline Phosphatase Lactate Dehydrogenase C-Reactive Protein Serum Total Protein Total Protein Albumin Dtgzu-4-Tajojcpfh Abnorm Protein Band 1 PEP Interpretation Crossmatch 10/28/16 10/28/16 10/28/16 05:45 05:45 11:44 WBC 16.6 H RBC 3.18 L Hgb 9.5 L Hct 29.3 L MCV MCHC RDW 17.6 H Plt Count 83 L Seg Neuts % (Manual) 87.0 H Lymphocytes % (Manual) 3.0 L Nucleated RBC % Seg Neutrophils # Man 14.4 H Lymphocytes # (Manual) 0.5 L Haptoglobin PT INR Fibrinogen Lupus Anticoagulant LA PTT Baseline POC ABG pH POC ABG pCO2 POC ABG pO2 Sodium Potassium Chloride 94.6 L Carbon Dioxide 21 L BUN 90 H Creatinine 3.9 H Glucose 152 H POC Glucose 151 H Lactic Acid Uric Acid Calcium 6.9 L Phosphorus Iron TIBC Erythropoietin Ferritin Total Bilirubin Direct Bilirubin AST ALT Alkaline Phosphatase Lactate Dehydrogenase C-Reactive Protein Serum Total Protein Total Protein Albumin Zibyo-8-Rsgryejwy Abnorm Protein Band 1 PEP Interpretation Crossmatch 10/28/16 10/28/16 10/29/16 17:31 23:47 04:53 WBC RBC Hgb Hct MCV MCHC RDW Plt Count Seg Neuts % (Manual) Lymphocytes % (Manual) Nucleated RBC % Seg Neutrophils # Man Lymphocytes # (Manual) Haptoglobin PT INR Fibrinogen Lupus Anticoagulant LA PTT Baseline POC ABG pH POC ABG pCO2 POC ABG pO2 Sodium Potassium Chloride Carbon Dioxide BUN Creatinine Glucose POC Glucose 184 H 124 H 153 H Lactic Acid Uric Acid Calcium Phosphorus Iron TIBC Erythropoietin Ferritin Total Bilirubin Direct Bilirubin AST ALT Alkaline Phosphatase Lactate Dehydrogenase C-Reactive Protein Serum Total Protein Total Protein Albumin Mlwrx-3-Naxnrgqzh Abnorm Protein Band 1 PEP Interpretation Crossmatch 10/29/16 10/29/16 10/29/16 06:15 06:15 10:58 WBC 14.1 H RBC 3.15 L Hgb 9.6 L Hct 29.1 L MCV MCHC RDW 17.9 H Plt Count 73 L Seg Neuts % (Manual) 93.0 H Lymphocytes % (Manual) 4.0 L Nucleated RBC % Seg Neutrophils # Man 13.1 H Lymphocytes # (Manual) 0.6 L Haptoglobin PT INR Fibrinogen Lupus Anticoagulant LA PTT Baseline POC ABG pH POC ABG pCO2 POC ABG pO2 Sodium Potassium Chloride Carbon Dioxide BUN 58 H Creatinine 2.7 H Glucose 146 H POC Glucose 134 H Lactic Acid Uric Acid Calcium 7.4 L Phosphorus 5.00 H Iron TIBC Erythropoietin Ferritin Total Bilirubin Direct Bilirubin AST ALT Alkaline Phosphatase Lactate Dehydrogenase C-Reactive Protein Serum Total Protein Total Protein Albumin Nfxcz-1-Fotptcqrt Abnorm Protein Band 1 PEP Interpretation Crossmatch 10/29/16 10/29/16 10/30/16 17:06 23:28 05:16 WBC RBC Hgb Hct MCV MCHC RDW Plt Count Seg Neuts % (Manual) Lymphocytes % (Manual) Nucleated RBC % Seg Neutrophils # Man Lymphocytes # (Manual) Haptoglobin PT INR Fibrinogen Lupus Anticoagulant LA PTT Baseline POC ABG pH POC ABG pCO2 POC ABG pO2 Sodium Potassium Chloride Carbon Dioxide BUN Creatinine Glucose POC Glucose 158 H 133 H 147 H Lactic Acid Uric Acid Calcium Phosphorus Iron TIBC Erythropoietin Ferritin Total Bilirubin Direct Bilirubin AST ALT Alkaline Phosphatase Lactate Dehydrogenase C-Reactive Protein Serum Total Protein Total Protein Albumin Mjjaj-3-Lxvqyxaej Abnorm Protein Band 1 PEP Interpretation Crossmatch 10/30/16 10/30/16 10/30/16 06:35 06:35 12:08 WBC 13.0 H RBC 3.08 L Hgb 9.3 L Hct 28.7 L MCV MCHC RDW 18.4 H Plt Count 73 L Seg Neuts % (Manual) Lymphocytes % (Manual) Nucleated RBC % Seg Neutrophils # Man Lymphocytes # (Manual) Haptoglobin PT INR Fibrinogen Lupus Anticoagulant LA PTT Baseline POC ABG pH POC ABG pCO2 POC ABG pO2 Sodium Potassium Chloride Carbon Dioxide BUN 86 H Creatinine 3.5 H Glucose 132 H POC Glucose 134 H Lactic Acid Uric Acid Calcium 7.1 L Phosphorus 5.90 H Iron TIBC Erythropoietin Ferritin Total Bilirubin Direct Bilirubin AST ALT Alkaline Phosphatase Lactate Dehydrogenase C-Reactive Protein Serum Total Protein Total Protein Albumin Erghp-4-Vuujkjjrm Abnorm Protein Band 1 PEP Interpretation Crossmatch 10/30/16 10/30/16 10/31/16 18:02 23:31 05:21 WBC RBC Hgb Hct MCV MCHC RDW Plt Count Seg Neuts % (Manual) Lymphocytes % (Manual) Nucleated RBC % Seg Neutrophils # Man Lymphocytes # (Manual) Haptoglobin PT INR Fibrinogen Lupus Anticoagulant LA PTT Baseline POC ABG pH POC ABG pCO2 POC ABG pO2 Sodium Potassium Chloride Carbon Dioxide BUN Creatinine Glucose POC Glucose 142 H 152 H 152 H Lactic Acid Uric Acid Calcium Phosphorus Iron TIBC Erythropoietin Ferritin Total Bilirubin Direct Bilirubin AST ALT Alkaline Phosphatase Lactate Dehydrogenase C-Reactive Protein Serum Total Protein Total Protein Albumin Kcvjg-5-Cxbnnbbei Abnorm Protein Band 1 PEP Interpretation Crossmatch 10/31/16 10/31/16 10/31/16 06:21 06:21 12:12 WBC 11.9 H RBC 2.82 L Hgb 8.6 L Hct 26.4 L MCV MCHC RDW 17.8 H Plt Count 56 L Seg Neuts % (Manual) Lymphocytes % (Manual) 0 L Nucleated RBC % Seg Neutrophils # Man 10.9 H Lymphocytes # (Manual) 0.0 L Haptoglobin PT INR Fibrinogen Lupus Anticoagulant LA PTT Baseline POC ABG pH POC ABG pCO2 POC ABG pO2 Sodium Potassium Chloride Carbon Dioxide 21 L BUN 107 H Creatinine 4.2 H Glucose 137 H POC Glucose 142 H Lactic Acid Uric Acid Calcium 7.2 L Phosphorus 6.50 H Iron TIBC Erythropoietin Ferritin Total Bilirubin Direct Bilirubin AST ALT Alkaline Phosphatase Lactate Dehydrogenase C-Reactive Protein Serum Total Protein Total Protein Albumin Nycdc-8-Bhqlxigpp Abnorm Protein Band 1 PEP Interpretation Crossmatch 10/31/16 10/31/16 11/01/16 17:34 23:46 05:15 WBC RBC Hgb Hct MCV MCHC RDW Plt Count Seg Neuts % (Manual) Lymphocytes % (Manual) Nucleated RBC % Seg Neutrophils # Man Lymphocytes # (Manual) Haptoglobin PT INR Fibrinogen Lupus Anticoagulant LA PTT Baseline POC ABG pH POC ABG pCO2 POC ABG pO2 Sodium Potassium Chloride Carbon Dioxide BUN Creatinine Glucose POC Glucose 180 H 131 H 148 H Lactic Acid Uric Acid Calcium Phosphorus Iron TIBC Erythropoietin Ferritin Total Bilirubin Direct Bilirubin AST ALT Alkaline Phosphatase Lactate Dehydrogenase C-Reactive Protein Serum Total Protein Total Protein Albumin Azmyt-3-Hfjvndugh Abnorm Protein Band 1 PEP Interpretation Crossmatch 11/01/16 11/01/16 11/01/16 06:00 06:00 11:45 WBC RBC 2.66 L Hgb 8.1 L Hct 24.8 L MCV MCHC RDW 17.7 H Plt Count 47 L Seg Neuts % (Manual) 88.0 H Lymphocytes % (Manual) 0 L Nucleated RBC % Seg Neutrophils # Man Lymphocytes # (Manual) 0.0 L Haptoglobin PT INR Fibrinogen Lupus Anticoagulant LA PTT Baseline POC ABG pH POC ABG pCO2 POC ABG pO2 Sodium 134 L Potassium Chloride 95.6 L Carbon Dioxide BUN 90 H Creatinine 3.5 H Glucose 154 H POC Glucose 169 H Lactic Acid Uric Acid Calcium 7.1 L Phosphorus 5.50 H Iron TIBC Erythropoietin Ferritin Total Bilirubin Direct Bilirubin AST ALT Alkaline Phosphatase Lactate Dehydrogenase C-Reactive Protein Serum Total Protein Total Protein Albumin Jovwe-1-Uuwlsiadu Abnorm Protein Band 1 PEP Interpretation Crossmatch 11/01/16 11/01/16 11/01/16 18:33 20:55 23:51 WBC RBC Hgb Hct MCV MCHC RDW Plt Count Seg Neuts % (Manual) Lymphocytes % (Manual) Nucleated RBC % Seg Neutrophils # Man Lymphocytes # (Manual) Haptoglobin PT INR Fibrinogen Lupus Anticoagulant LA PTT Baseline POC ABG pH POC ABG pCO2 POC ABG pO2 Sodium Potassium Chloride Carbon Dioxide BUN Creatinine Glucose POC Glucose 128 H 144 H Lactic Acid 3.10 H* Uric Acid Calcium Phosphorus Iron TIBC Erythropoietin Ferritin Total Bilirubin Direct Bilirubin AST ALT Alkaline Phosphatase Lactate Dehydrogenase C-Reactive Protein Serum Total Protein Total Protein Albumin Bjslm-6-Czgxoqzft Abnorm Protein Band 1 PEP Interpretation Crossmatch 11/02/16 11/02/16 11/02/16 05:15 05:15 05:24 WBC RBC 2.69 L Hgb 8.2 L Hct 25.1 L MCV MCHC RDW 16.9 H Plt Count 42 L Seg Neuts % (Manual) 94.0 H Lymphocytes % (Manual) 0 L Nucleated RBC % Seg Neutrophils # Man Lymphocytes # (Manual) 0.0 L Haptoglobin PT INR Fibrinogen Lupus Anticoagulant LA PTT Baseline POC ABG pH POC ABG pCO2 POC ABG pO2 Sodium 135 L Potassium Chloride 97.7 L Carbon Dioxide BUN 67 H Creatinine 2.8 H Glucose 107 H POC Glucose 119 H Lactic Acid Uric Acid Calcium 7.3 L Phosphorus 4.90 H Iron TIBC Erythropoietin Ferritin Total Bilirubin Direct Bilirubin AST ALT Alkaline Phosphatase Lactate Dehydrogenase C-Reactive Protein Serum Total Protein Total Protein Albumin Rfcmq-4-Epwpvjvuf Abnorm Protein Band 1 PEP Interpretation Crossmatch 11/02/16 11/02/16 11/02/16 06:07 09:26 10:00 WBC RBC 2.83 L Hgb 8.7 L Hct 26.5 L MCV MCHC RDW 17.4 H Plt Count 46 L Seg Neuts % (Manual) Lymphocytes % (Manual) Nucleated RBC % Seg Neutrophils # Man Lymphocytes # (Manual) Haptoglobin PT 19.9 H INR 1.69 H Fibrinogen Lupus Anticoagulant LA PTT Baseline POC ABG pH POC ABG pCO2 POC ABG pO2 Sodium Potassium Chloride Carbon Dioxide BUN Creatinine Glucose POC Glucose 111 H Lactic Acid Uric Acid Calcium Phosphorus Iron TIBC Erythropoietin Ferritin Total Bilirubin Direct Bilirubin AST ALT Alkaline Phosphatase Lactate Dehydrogenase C-Reactive Protein Serum Total Protein Total Protein Albumin Objlj-9-Bryidegkb Abnorm Protein Band 1 PEP Interpretation Crossmatch 11/03/16 11/03/16 11/03/16 00:02 03:25 03:25 WBC RBC 2.34 L Hgb 7.0 L Hct 21.9 L MCV MCHC RDW 17.6 H Plt Count 49 L Seg Neuts % (Manual) 86.0 H Lymphocytes % (Manual) 4.0 L Nucleated RBC % Seg Neutrophils # Man Lymphocytes # (Manual) 0.3 L Haptoglobin PT INR Fibrinogen Lupus Anticoagulant LA PTT Baseline POC ABG pH POC ABG pCO2 POC ABG pO2 Sodium 136 L Potassium Chloride 94.6 L Carbon Dioxide 21 L BUN 84 H Creatinine 3.2 H Glucose 116 H POC Glucose 114 H Lactic Acid Uric Acid Calcium 7.0 L Phosphorus 5.80 H Iron TIBC Erythropoietin Ferritin Total Bilirubin Direct Bilirubin AST ALT Alkaline Phosphatase Lactate Dehydrogenase C-Reactive Protein Serum Total Protein Total Protein Albumin Fddqb-5-Sqowxkudz Abnorm Protein Band 1 PEP Interpretation Crossmatch 11/03/16 11/03/16 11/03/16 03:25 11:05 13:02 WBC RBC Hgb Hct MCV MCHC RDW Plt Count Seg Neuts % (Manual) Lymphocytes % (Manual) Nucleated RBC % Seg Neutrophils # Man Lymphocytes # (Manual) Haptoglobin PT 22.5 H INR 1.98 H Fibrinogen Lupus Anticoagulant LA PTT Baseline POC ABG pH POC ABG pCO2 POC ABG pO2 Sodium Potassium Chloride Carbon Dioxide BUN Creatinine Glucose POC Glucose 165 H Lactic Acid Uric Acid Calcium Phosphorus Iron TIBC Erythropoietin Ferritin Total Bilirubin Direct Bilirubin AST ALT Alkaline Phosphatase Lactate Dehydrogenase C-Reactive Protein Serum Total Protein Total Protein Albumin Zfeky-4-Pvzwmqvmf Abnorm Protein Band 1 PEP Interpretation Crossmatch See Detail 11/03/16 11/04/16 11/04/16 18:13 00:27 05:40 WBC RBC Hgb Hct MCV MCHC RDW Plt Count Seg Neuts % (Manual) Lymphocytes % (Manual) Nucleated RBC % Seg Neutrophils # Man Lymphocytes # (Manual) Haptoglobin PT 20.3 H INR 1.74 H Fibrinogen Lupus Anticoagulant LA PTT Baseline POC ABG pH POC ABG pCO2 POC ABG pO2 Sodium Potassium Chloride Carbon Dioxide BUN Creatinine Glucose POC Glucose 163 H 108 H Lactic Acid Uric Acid Calcium Phosphorus Iron TIBC Erythropoietin Ferritin Total Bilirubin Direct Bilirubin AST ALT Alkaline Phosphatase Lactate Dehydrogenase C-Reactive Protein Serum Total Protein Total Protein Albumin Jiomd-2-Bfzheaoth Abnorm Protein Band 1 PEP Interpretation Crossmatch 11/04/16 11/04/16 11/04/16 11:41 14:48 17:58 WBC RBC Hgb Hct MCV MCHC RDW Plt Count Seg Neuts % (Manual) Lymphocytes % (Manual) Nucleated RBC % Seg Neutrophils # Man Lymphocytes # (Manual) Haptoglobin PT INR Fibrinogen Lupus Anticoagulant LA PTT Baseline POC ABG pH POC ABG pCO2 POC ABG pO2 107 H Sodium Potassium Chloride Carbon Dioxide BUN Creatinine Glucose POC Glucose 175 H 106 H Lactic Acid Uric Acid Calcium Phosphorus Iron TIBC Erythropoietin Ferritin Total Bilirubin Direct Bilirubin AST ALT Alkaline Phosphatase Lactate Dehydrogenase C-Reactive Protein Serum Total Protein Total Protein Albumin Ljjdu-6-Abdzxmbsl Abnorm Protein Band 1 PEP Interpretation Crossmatch 11/05/16 11/05/16 11/05/16 00:21 04:55 05:40 WBC RBC 2.60 L Hgb 8.1 L Hct 24.6 L MCV 95 H MCHC RDW 16.4 H Plt Count 34 L Seg Neuts % (Manual) Lymphocytes % (Manual) 1.0 L Nucleated RBC % Seg Neutrophils # Man Lymphocytes # (Manual) 0.1 L Haptoglobin PT INR Fibrinogen Lupus Anticoagulant LA PTT Baseline POC ABG pH POC ABG pCO2 POC ABG pO2 Sodium Potassium Chloride Carbon Dioxide BUN Creatinine Glucose POC Glucose 117 H 143 H Lactic Acid Uric Acid Calcium Phosphorus Iron TIBC Erythropoietin Ferritin Total Bilirubin Direct Bilirubin AST ALT Alkaline Phosphatase Lactate Dehydrogenase C-Reactive Protein Serum Total Protein Total Protein Albumin Adhdo-2-Pkykbokkz Abnorm Protein Band 1 PEP Interpretation Crossmatch 11/05/16 11/05/16 11/05/16 06:00 11:20 18:03 WBC RBC Hgb Hct MCV MCHC RDW Plt Count Seg Neuts % (Manual) Lymphocytes % (Manual) Nucleated RBC % Seg Neutrophils # Man Lymphocytes # (Manual) Haptoglobin PT INR Fibrinogen Lupus Anticoagulant LA PTT Baseline POC ABG pH POC ABG pCO2 POC ABG pO2 Sodium Potassium Chloride Carbon Dioxide BUN 46 H Creatinine 2.0 H Glucose 166 H POC Glucose 147 H 178 H Lactic Acid Uric Acid Calcium 7.3 L Phosphorus Iron TIBC Erythropoietin Ferritin Total Bilirubin Direct Bilirubin AST ALT Alkaline Phosphatase Lactate Dehydrogenase C-Reactive Protein Serum Total Protein Total Protein Albumin Lflbm-7-Ulbleoafy Abnorm Protein Band 1 PEP Interpretation Crossmatch 11/05/16 11/05/16 11/06/16 21:31 23:49 05:09 WBC RBC Hgb Hct MCV MCHC RDW Plt Count Seg Neuts % (Manual) Lymphocytes % (Manual) Nucleated RBC % Seg Neutrophils # Man Lymphocytes # (Manual) Haptoglobin PT INR Fibrinogen Lupus Anticoagulant LA PTT Baseline POC ABG pH 7.464 H POC ABG pCO2 34.8 L POC ABG pO2 219 H Sodium Potassium Chloride Carbon Dioxide BUN Creatinine Glucose POC Glucose 130 H 138 H Lactic Acid Uric Acid Calcium Phosphorus Iron TIBC Erythropoietin Ferritin Total Bilirubin Direct Bilirubin AST ALT Alkaline Phosphatase Lactate Dehydrogenase C-Reactive Protein Serum Total Protein Total Protein Albumin Eajkc-3-Oaamxvdmy Abnorm Protein Band 1 PEP Interpretation Crossmatch 11/06/16 11/06/16 11/06/16 08:10 08:10 11:23 WBC RBC 2.78 L Hgb 8.7 L Hct 26.4 L MCV 95 H MCHC RDW 17.3 H Plt Count 34 L Seg Neuts % (Manual) Lymphocytes % (Manual) Nucleated RBC % Seg Neutrophils # Man Lymphocytes # (Manual) Haptoglobin PT INR Fibrinogen Lupus Anticoagulant LA PTT Baseline POC ABG pH POC ABG pCO2 POC ABG pO2 Sodium Potassium Chloride 97.8 L Carbon Dioxide BUN 72 H Creatinine 3.0 H Glucose 173 H POC Glucose 129 H Lactic Acid Uric Acid Calcium 7.2 L Phosphorus Iron TIBC Erythropoietin Ferritin Total Bilirubin Direct Bilirubin AST 105 H ALT Alkaline Phosphatase 759 H Lactate Dehydrogenase C-Reactive Protein Serum Total Protein Total Protein 5.1 L Albumin 1.9 L Jggzg-1-Caiafuycc Abnorm Protein Band 1 PEP Interpretation Crossmatch 11/06/16 11/07/16 11/07/16 17:17 05:09 08:27 WBC RBC 2.76 L Hgb 8.5 L Hct 25.9 L MCV MCHC RDW 16.5 H Plt Count 33 L Seg Neuts % (Manual) Lymphocytes % (Manual) Nucleated RBC % Seg Neutrophils # Man Lymphocytes # (Manual) Haptoglobin PT INR Fibrinogen Lupus Anticoagulant LA PTT Baseline POC ABG pH POC ABG pCO2 POC ABG pO2 Sodium Potassium Chloride Carbon Dioxide BUN Creatinine Glucose POC Glucose 160 H 136 H Lactic Acid Uric Acid Calcium Phosphorus Iron TIBC Erythropoietin Ferritin Total Bilirubin Direct Bilirubin AST ALT Alkaline Phosphatase Lactate Dehydrogenase C-Reactive Protein Serum Total Protein Total Protein Albumin Ygvjf-0-Oofbovfqo Abnorm Protein Band 1 PEP Interpretation Crossmatch 11/07/16 11/07/16 11/07/16 08:27 11:37 12:38 WBC RBC Hgb Hct MCV MCHC RDW Plt Count Seg Neuts % (Manual) Lymphocytes % (Manual) Nucleated RBC % Seg Neutrophils # Man Lymphocytes # (Manual) Haptoglobin PT INR Fibrinogen Lupus Anticoagulant LA PTT Baseline POC ABG pH 7.492 H POC ABG pCO2 29.8 L POC ABG pO2 132 H Sodium Potassium Chloride 96.0 L Carbon Dioxide BUN 94 H Creatinine 3.3 H Glucose 115 H POC Glucose 113 H Lactic Acid Uric Acid Calcium 7.7 L Phosphorus Iron TIBC Erythropoietin Ferritin Total Bilirubin Direct Bilirubin AST ALT Alkaline Phosphatase Lactate Dehydrogenase C-Reactive Protein Serum Total Protein Total Protein Albumin Qzhpq-1-Fgnhhjpmg Abnorm Protein Band 1 PEP Interpretation Crossmatch 11/07/16 11/07/16 11/08/16 17:20 23:40 05:15 WBC RBC 2.87 L Hgb 8.9 L Hct 26.9 L MCV MCHC RDW 16.7 H Plt Count 34 L Seg Neuts % (Manual) Lymphocytes % (Manual) Nucleated RBC % Seg Neutrophils # Man Lymphocytes # (Manual) Haptoglobin PT INR Fibrinogen Lupus Anticoagulant LA PTT Baseline POC ABG pH POC ABG pCO2 POC ABG pO2 Sodium Potassium Chloride Carbon Dioxide BUN Creatinine Glucose POC Glucose 121 H 122 H Lactic Acid Uric Acid Calcium Phosphorus Iron TIBC Erythropoietin Ferritin Total Bilirubin Direct Bilirubin AST ALT Alkaline Phosphatase Lactate Dehydrogenase C-Reactive Protein Serum Total Protein Total Protein Albumin Sczbl-2-Zcqtkvqqd Abnorm Protein Band 1 PEP Interpretation Crossmatch 11/08/16 11/08/16 11/08/16 05:15 05:31 10:05 WBC RBC Hgb Hct MCV MCHC RDW Plt Count Seg Neuts % (Manual) Lymphocytes % (Manual) Nucleated RBC % Seg Neutrophils # Man Lymphocytes # (Manual) Haptoglobin PT INR Fibrinogen Lupus Anticoagulant LA PTT Baseline POC ABG pH 7.510 H POC ABG pCO2 29.5 L POC ABG pO2 114 H Sodium Potassium Chloride Carbon Dioxide BUN 73 H Creatinine 2.8 H Glucose 110 H POC Glucose 106 H Lactic Acid Uric Acid Calcium 7.6 L Phosphorus Iron TIBC Erythropoietin Ferritin Total Bilirubin Direct Bilirubin AST ALT Alkaline Phosphatase Lactate Dehydrogenase C-Reactive Protein Serum Total Protein Total Protein Albumin Ezkno-4-Fieehqinz Abnorm Protein Band 1 PEP Interpretation Crossmatch 11/08/16 11/08/16 11/08/16 12:24 12:53 18:05 WBC RBC Hgb Hct MCV MCHC RDW Plt Count Seg Neuts % (Manual) Lymphocytes % (Manual) Nucleated RBC % Seg Neutrophils # Man Lymphocytes # (Manual) Haptoglobin PT INR Fibrinogen Lupus Anticoagulant LA PTT Baseline POC ABG pH POC ABG pCO2 52.3 H POC ABG pO2 Sodium Potassium Chloride Carbon Dioxide BUN Creatinine Glucose POC Glucose 110 H 166 H Lactic Acid Uric Acid Calcium Phosphorus Iron TIBC Erythropoietin Ferritin Total Bilirubin Direct Bilirubin AST ALT Alkaline Phosphatase Lactate Dehydrogenase C-Reactive Protein Serum Total Protein Total Protein Albumin Kqdpw-1-Workhlzcp Abnorm Protein Band 1 PEP Interpretation Crossmatch 11/09/16 11/09/16 11/09/16 00:27 05:22 07:39 WBC 11.1 H RBC 2.91 L Hgb 8.9 L Hct 27.7 L MCV 95 H MCHC RDW 17.4 H Plt Count 59 L Seg Neuts % (Manual) Lymphocytes % (Manual) Nucleated RBC % Seg Neutrophils # Man Lymphocytes # (Manual) Haptoglobin PT INR Fibrinogen Lupus Anticoagulant LA PTT Baseline POC ABG pH POC ABG pCO2 POC ABG pO2 Sodium Potassium Chloride Carbon Dioxide BUN Creatinine Glucose POC Glucose 196 H 213 H Lactic Acid Uric Acid Calcium Phosphorus Iron TIBC Erythropoietin Ferritin Total Bilirubin Direct Bilirubin AST ALT Alkaline Phosphatase Lactate Dehydrogenase C-Reactive Protein Serum Total Protein Total Protein Albumin Fgfag-2-Tmcxkvupr Abnorm Protein Band 1 PEP Interpretation Crossmatch 11/09/16 07:39 WBC RBC Hgb Hct MCV MCHC RDW Plt Count Seg Neuts % (Manual) Lymphocytes % (Manual) Nucleated RBC % Seg Neutrophils # Man Lymphocytes # (Manual) Haptoglobin PT INR Fibrinogen Lupus Anticoagulant LA PTT Baseline POC ABG pH POC ABG pCO2 POC ABG pO2 Sodium Potassium 3.3 L Chloride Carbon Dioxide BUN 47 H Creatinine 1.9 H Glucose 207 H POC Glucose Lactic Acid Uric Acid Calcium 7.6 L Phosphorus Iron TIBC Erythropoietin Ferritin Total Bilirubin Direct Bilirubin AST ALT Alkaline Phosphatase Lactate Dehydrogenase C-Reactive Protein Serum Total Protein Total Protein Albumin Nfszv-4-Hctkwjedt Abnorm Protein Band 1 PEP Interpretation Crossmatch Allied health notes reviewed: RT
--- NOTE | 2016-11-09 12:24 | Progress Note ---
Assessment and Plan - Patient Problems (1) Renal failure Current Visit: Yes Status: Acute Qualifiers: Renal failure chronicity: acute Acute renal failure type: unspecified Chronic kidney disease stage: C Qualified Code(s): N17.9 - Acute kidney failure, unspecified Plan to address problem: Renal function reviewed. Serum creatinine 1.9 today Dialysis remains on hold Hypokalemia- KCL 10 meq IV x 1 On Levophed drip Strict I/O monitoring Avoid Nephrotoxic agents Renally dose medications Obtain daily weights (2) Acute respiratory failure Current Visit: Yes Status: Acute Qualifiers: Respiratory failure complication: hypoxia Qualified Code(s): J96.01 - Acute respiratory failure with hypoxia Plan to address problem: Intubated, has trach, as per Pulmonary (3) Anemia Current Visit: Yes Status: Acute Qualifiers: Anemia type: unspecified type Iron deficiency anemia type: I Vitamin B12 deficiency anemia type: V Folate deficiency anemia type: F Bone marrow failure anemia type: B Hemolytic anemia type: H Other causes of anemia: O Chronic kidney disease stage: C Qualified Code(s): D64.9 - Anemia, unspecified Plan to address problem: Monitor labs and transfuse as needed Hematology onboard (4) Thrombocytopenia Current Visit: Yes Status: Acute Plan to address problem: Still awaiting [id number] result to decide further treatment course per Hematology (5) Atrial fibrillation Current Visit: Yes Status: Acute Qualifiers: Atrial fibrillation type: A Plan to address problem: On Metoprolol Subjective Date of service: 11/09/16 Principal diagnosis: Sepsis Syndrome; MAHA; RAJESH; CHF; TTP Interval history: Patient intubated via trach. Unresponsive. No family at bedside. Objective - Vital Signs Vital signs: Vital Signs - 12hr 11/09/16 11/09/16 11/09/16 00:30 00:45 01:00 Temperature Pulse Rate 100 H 100 H 100 H Pulse Rate [ From Monitor] Respiratory 38 H 22 19 Rate Blood Pressure 137/72 132/75 122/74 O2 Sat by Pulse 100 97 Oximetry 11/09/16 11/09/16 11/09/16 01:15 01:30 01:45 Temperature Pulse Rate 101 H 103 H 102 H Pulse Rate [ From Monitor] Respiratory 20 20 20 Rate Blood Pressure 128/79 133/75 125/71 O2 Sat by Pulse Oximetry 11/09/16 11/09/16 11/09/16 02:00 02:15 02:30 Temperature Pulse Rate 102 H 101 H 101 H Pulse Rate [ From Monitor] Respiratory 21 21 20 Rate Blood Pressure 135/77 129/77 134/74 O2 Sat by Pulse 100 100 Oximetry 11/09/16 11/09/16 11/09/16 02:45 03:00 03:15 Temperature Pulse Rate 100 H 101 H 101 H Pulse Rate [ From Monitor] Respiratory 20 21 21 Rate Blood Pressure 114/70 114/70 125/76 O2 Sat by Pulse 99 100 100 Oximetry 11/09/16 11/09/16 11/09/16 03:30 03:45 04:00 Temperature 99.4 F Pulse Rate 99 H 102 H 104 H Pulse Rate [ From Monitor] Respiratory 21 24 26 H Rate Blood Pressure 127/72 142/80 140/74 O2 Sat by Pulse Oximetry 11/09/16 11/09/16 11/09/16 04:15 04:30 04:37 Temperature Pulse Rate 99 H 98 H 99 H Pulse Rate [ From Monitor] Respiratory 19 20 Rate Blood Pressure 134/75 131/75 134/75 O2 Sat by Pulse 100 Oximetry 11/09/16 11/09/16 11/09/16 04:46 05:00 05:15 Temperature Pulse Rate 102 H 109 H 101 H Pulse Rate [ From Monitor] Respiratory 20 21 Rate Blood Pressure 123/78 123/78 73/46 O2 Sat by Pulse 100 100 99 Oximetry 11/09/16 11/09/16 11/09/16 05:30 05:45 06:00 Temperature 97.9 F Pulse Rate 102 H 99 H 100 H Pulse Rate [ From Monitor] Respiratory Rate Blood Pressure 107/69 99/69 105/75 O2 Sat by Pulse 95 100 Oximetry 11/09/16 11/09/16 11/09/16 06:15 06:30 06:45 Temperature Pulse Rate 100 H 102 H 98 H Pulse Rate [ From Monitor] Respiratory Rate Blood Pressure 126/79 114/70 125/73 O2 Sat by Pulse 100 Oximetry 11/09/16 11/09/16 11/09/16 07:00 07:15 07:30 Temperature Pulse Rate 97 H 98 H 100 H Pulse Rate [ From Monitor] Respiratory Rate Blood Pressure 129/70 124/71 103/70 O2 Sat by Pulse 100 100 Oximetry 11/09/16 11/09/16 11/09/16 07:46 07:54 08:00 Temperature 99.0 F Pulse Rate 98 H 99 H Pulse Rate [ From Monitor] Respiratory Rate Blood Pressure 95/71 121/81 O2 Sat by Pulse Oximetry 11/09/16 11/09/16 11/09/16 08:15 08:30 08:37 Temperature Pulse Rate 102 H 100 H Pulse Rate [ 101 H From Monitor] Respiratory Rate Blood Pressure 120/78 124/78 O2 Sat by Pulse 95 96 100 Oximetry 11/09/16 11/09/16 11/09/16 08:45 08:52 09:00 Temperature Pulse Rate 104 H 100 H 106 H Pulse Rate [ From Monitor] Respiratory Rate Blood Pressure 119/71 119/71 116/72 O2 Sat by Pulse 100 100 Oximetry 11/09/16 11/09/16 11/09/16 09:15 09:30 09:45 Temperature Pulse Rate 102 H 100 H 102 H Pulse Rate [ From Monitor] Respiratory Rate Blood Pressure 106/58 97/60 104/64 O2 Sat by Pulse 97 99 Oximetry 11/09/16 11/09/16 11/09/16 10:00 10:15 10:30 Temperature Pulse Rate 103 H 100 H 102 H Pulse Rate [ From Monitor] Respiratory Rate Blood Pressure 112/65 102/59 102/59 O2 Sat by Pulse 96 100 99 Oximetry 11/09/16 11/09/16 11/09/16 10:45 11:00 11:15 Temperature Pulse Rate 102 H 102 H 105 H Pulse Rate [ From Monitor] Respiratory Rate Blood Pressure 103/58 102/53 109/57 O2 Sat by Pulse 98 100 Oximetry 11/09/16 11/09/16 11:30 11:49 Temperature Pulse Rate 106 H Pulse Rate [ 105 H From Monitor] Respiratory Rate Blood Pressure 107/59 O2 Sat by Pulse 100 96 Oximetry - General Appearance General appearance: chronically ill, sedated on ventilator EENT: ATNC Neck: no JVD Respiratory: Present: Other (Intubated on vent support via trach) Cardiology: irregular, tachycardia, S1S2 Gastrointestinal: normoactive bowel sounds Integumentary: warm and dry Neurologic: other (Intubated and sedated) Musculoskeletal: other (Mild edema to BLE) - Lab 11/09/16 07:39 11/09/16 07:39 Most recent lab results Calcium 7.6 mg/dL (8.4-10.2) L 11/09/16 07:39 Phosphorus 5.80 mg/dL (2.5-4.5) H 11/03/16 03:25
[2016-11-09] MEDS ORDERED: KCL 10MEQ/100ML 10 MEQ/100 ML BAG IV ONE (13:00)
--- NOTE | 2016-11-09 13:54 | Progress Note ---
Assessment and Plan Patient is a 61-year-old man without known past medical history who presented to the emergency department [facility] on 10/13/16, complaining of bilateral leg swelling that worsened for the last 4 days. He was found to have severe metabolic acidosis, creatinine was 14.5 with hyperkalemia, emergent Hemodialysis was done. He was also found to have severe pancytopenia, thrombocytopenia and Dr. 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 He was on bipap and was intubated 10/16/16, details are not readily available on why he needed to be intubated, no nursing note for 10/16. -Acute encephalopathy, not sedated, neurology following [facility] confirms multifocal hemorrhagic lesions but no midline shift/compression of brain structures/significant mass effect and is actually improved from prior MRI. CTA H/N w/o vascular lesion. JONATHAN w/o endocarditis or source of emboli. 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 Avoid all blood thinners until hemorrhage stable. BP control: goal < 140/90 -AFIB WITH RVR, stable: Cardiology is following -Group B strep bacteremia: JONATHAN done on 10/27/16 -Acute Respiratory failure with hypoxia, intubated: continue mv -Pancytopenia [leukopenia, severe anemia, Woresening thrombocytopenia] heme/onc is following, s/p PLASMAPHERSIS, s/p PRBC transfusion, s/p plt -ARF, renal tubular stasis, poa s/p hemodialysis: monitor closely -secondary coagulopathy -Lactic acidosis -Probable TTP, await [id number] results -hypoglycemia, resolved -Acute systolic congestive heart failure EF around 30% -SEVERE SEPSIS, poa - cardiogenic shock, on levophed Trach and peg done 11/05/16: pt count dropped to 34, renal function much improved, h/h steady, continue to monitor. 11/06/16: plt count still low. Repeat in am. Severe protein calorie malnutrition , poa, getting worse, ?increase PEG feedings, Rn Lpn Cna is following. 11/07/16: ADAMT13 still pending, Heme/onc to follow up. 11/08/13: Platelet count improving, ADAMT13 still pending. cont supportive care 11/09/14: no new issue, cont supportive care. Platelet count improving, ADAMT13 still pending. hematology following. Subjective Date of service: 11/09/16 Principal diagnosis: Sepsis Syndrome; MAHA; RAJESH; CHF; TTP Interval history: Patient seen and examined. Patient still intubated. Overnight uneventful. Imaging, old records, testing, labs, nursing notes reviewed. Objective - Exam Narrative Exam: GEN: Critically ill intubated but not sedated HEENT: Eyes are floating,trach in place CVS: irregular, NORMAL S1S2 LUNGS/CHEST: NORMAL CHEST EXPANSION B, GOOD AIR ENTRY B ABD: SOFT, peg in place POSITIVE BOWEL SOUNDS, NONDISTENDED, NO REBOUND OR GUARDING NEURO: CN 2-12 GROSSLY INTACT, he doesn't follow commands PSY: Unresponsive - Constitutional Vitals: Vital Signs - 12hr 11/09/16 11/09/16 11/09/16 02:00 02:15 02:30 Temperature Pulse Rate 102 H 101 H 101 H Pulse Rate [ From Monitor] Respiratory 21 21 20 Rate Blood Pressure 135/77 129/77 134/74 O2 Sat by Pulse 100 100 Oximetry 11/09/16 11/09/16 11/09/16 02:45 03:00 03:15 Temperature Pulse Rate 100 H 101 H 101 H Pulse Rate [ From Monitor] Respiratory 20 21 21 Rate Blood Pressure 114/70 114/70 125/76 O2 Sat by Pulse 99 100 100 Oximetry 11/09/16 11/09/16 11/09/16 03:30 03:45 04:00 Temperature 99.4 F Pulse Rate 99 H 102 H 104 H Pulse Rate [ From Monitor] Respiratory 21 24 26 H Rate Blood Pressure 127/72 142/80 140/74 O2 Sat by Pulse Oximetry 11/09/16 11/09/16 11/09/16 04:15 04:30 04:37 Temperature Pulse Rate 99 H 98 H 99 H Pulse Rate [ From Monitor] Respiratory 19 20 Rate Blood Pressure 134/75 131/75 134/75 O2 Sat by Pulse 100 Oximetry 11/09/16 11/09/16 11/09/16 04:46 05:00 05:15 Temperature Pulse Rate 102 H 109 H 101 H Pulse Rate [ From Monitor] Respiratory 20 21 Rate Blood Pressure 123/78 123/78 73/46 O2 Sat by Pulse 100 100 99 Oximetry 11/09/16 11/09/16 11/09/16 05:30 05:45 06:00 Temperature 97.9 F Pulse Rate 102 H 99 H 100 H Pulse Rate [ From Monitor] Respiratory Rate Blood Pressure 107/69 99/69 105/75 O2 Sat by Pulse 95 100 Oximetry 11/09/16 11/09/16 11/09/16 06:15 06:30 06:45 Temperature Pulse Rate 100 H 102 H 98 H Pulse Rate [ From Monitor] Respiratory Rate Blood Pressure 126/79 114/70 125/73 O2 Sat by Pulse 100 Oximetry 11/09/16 11/09/16 11/09/16 07:00 07:15 07:30 Temperature Pulse Rate 97 H 98 H 100 H Pulse Rate [ From Monitor] Respiratory Rate Blood Pressure 129/70 124/71 103/70 O2 Sat by Pulse 100 100 Oximetry 11/09/16 11/09/16 11/09/16 07:46 07:54 08:00 Temperature 99.0 F Pulse Rate 98 H 99 H Pulse Rate [ From Monitor] Respiratory Rate Blood Pressure 95/71 121/81 O2 Sat by Pulse Oximetry 11/09/16 11/09/16 11/09/16 08:15 08:30 08:37 Temperature Pulse Rate 102 H 100 H Pulse Rate [ 101 H From Monitor] Respiratory Rate Blood Pressure 120/78 124/78 O2 Sat by Pulse 95 96 100 Oximetry 11/09/16 11/09/16 11/09/16 08:45 08:52 09:00 Temperature Pulse Rate 104 H 100 H 106 H Pulse Rate [ From Monitor] Respiratory Rate Blood Pressure 119/71 119/71 116/72 O2 Sat by Pulse 100 100 Oximetry 11/09/16 11/09/16 11/09/16 09:15 09:30 09:45 Temperature Pulse Rate 102 H 100 H 102 H Pulse Rate [ From Monitor] Respiratory Rate Blood Pressure 106/58 97/60 104/64 O2 Sat by Pulse 97 99 Oximetry 11/09/16 11/09/16 11/09/16 10:00 10:15 10:30 Temperature Pulse Rate 103 H 100 H 102 H Pulse Rate [ From Monitor] Respiratory Rate Blood Pressure 112/65 102/59 102/59 O2 Sat by Pulse 96 100 99 Oximetry 11/09/16 11/09/16 11/09/16 10:45 11:00 11:15 Temperature Pulse Rate 102 H 102 H 105 H Pulse Rate [ From Monitor] Respiratory Rate Blood Pressure 103/58 102/53 109/57 O2 Sat by Pulse 98 100 Oximetry 11/09/16 11/09/16 11/09/16 11:30 11:45 11:49 Temperature Pulse Rate 106 H 105 H Pulse Rate [ 105 H From Monitor] Respiratory Rate Blood Pressure 107/59 107/58 O2 Sat by Pulse 100 100 96 Oximetry 11/09/16 11/09/16 11/09/16 12:00 12:15 12:41 Temperature 97.6 F Pulse Rate 105 H 108 H 100 H Pulse Rate [ From Monitor] Respiratory 25 H Rate Blood Pressure 109/55 112/58 93/52 O2 Sat by Pulse 100 100 Oximetry 11/09/16 11/09/16 12:50 12:56 Temperature 99.3 F Pulse Rate Pulse Rate [ From Monitor] Respiratory Rate Blood Pressure O2 Sat by Pulse 98 Oximetry - Labs CBC & Chem 7: 11/10/16 06:15 11/10/16 06:15 Labs: Abnormal lab results 11/08/16 11/09/16 11/09/16 Range/Units 18:05 00:27 05:22 WBC (4.5-11.0) K/mm3 RBC (3.65-5.03) M/mm3 Hgb (11.8-15.2) gm/dl Hct (35.5-45.6) % MCV (84-94) fl RDW (13.2-15.2) % Plt Count (140-440) K/mm3 Potassium (3.6-5.0) mmol/L BUN (9-20) mg/dL Creatinine (0.8-1.5) mg/dL Glucose (75-100) mg/dL POC Glucose 166 H 196 H 213 H (70-105) Calcium (8.4-10.2) mg/dL 11/09/16 11/09/16 11/09/16 Range/Units 07:39 07:39 12:24 WBC 11.1 H (4.5-11.0) K/mm3 RBC 2.91 L (3.65-5.03) M/mm3 Hgb 8.9 L (11.8-15.2) gm/dl Hct 27.7 L (35.5-45.6) % MCV 95 H (84-94) fl RDW 17.4 H (13.2-15.2) % Plt Count 59 L (140-440) K/mm3 Potassium 3.3 L (3.6-5.0) mmol/L BUN 47 H (9-20) mg/dL Creatinine 1.9 H (0.8-1.5) mg/dL Glucose 207 H (75-100) mg/dL POC Glucose 148 H (70-105) Calcium 7.6 L (8.4-10.2) mg/dL
--- NOTE | 2016-11-09 23:13 | Consultation ---
History of Present Illness - Reason for Consult Consult date: 11/09/16 - History of Present Illness patient seen, resting in bed, labs/records/notes reviewed, clinically unchanged , but lab data with slight improvement in PLT, BUN, [id number] strangely still pending results. Past History Past Medical History: hypertension, other (Had shingles in November 27-) Past Surgical History: No surgical history Social history: , full code, other (Patienti s and lives with his ). denies: smoking, alcohol abuse, prescription drug abuse, IV drug use Family history: no significant family history Medications and Allergies Allergies Allergy/AdvReac Type Severity Reaction Status Date / Time No Known Allergies Allergy Unverified 10/13/16 09:41 Home Medications Medication Instructions Recorded Confirmed Last Taken Type Naproxen Sodium [Aleve TAB] 2 tab PO Q8H PRN 10/13/16 10/13/16 10/12/16 14:00 History Active Meds: Active Medications Acetaminophen (Tylenol) 1,[address] Q4H PRN PRN Reason: Pain, Mild (1-3) Last Admin: 10/20/16 15:40 Dose: 1,000 mg Acetaminophen (Tylenol) 650 mg FEEDTUBE Q6H PRN PRN Reason: Pain, Mild (1-3) Last Admin: 10/24/16 10:56 Dose: 650 mg Alteplase, Recombinant (Cathflo) 4 mg IV ROD PRN PRN Reason: hemodialysis Last Admin: 11/07/16 14:24 Dose: 4 mg Lipase/Protease/Amylase (Pancreaze Dr 10,500 Unit) 1 each FEEDTUBE PRN PRN PRN Reason: For Clogged Feeding Tube Dextrose (D50w (25gm)) 25 ml IV PRN PRN PRN Reason: Hypoglycemia Last Admin: 10/18/16 07:20 Dose: 25 ml Diphenhydramine HCl (Benadryl) 50 mg IV Q6H PRN PRN Reason: Itching Last Admin: 10/24/16 10:57 Dose: 50 mg Famotidine (Pepcid) 20 mg PO Q24H EDWINA Last Admin: 11/09/16 09:32 Dose: 20 mg Haloperidol Lactate (Haldol) 5 mg IM Q6H PRN PRN Reason: Agitation Last Admin: 10/14/16 21:11 Dose: 5 mg Heparin Sodium (Porcine) (Heparin) 10,000 unit IV ROD PRN PRN Reason: for plasmapheresis- vascath Last Admin: 11/07/16 17:34 Dose: 10,000 unit Hydrophilic Ointment (Vaseline Lip Therapy) 1 applic TP Q2H PRN PRN Reason: Dry Lips Fentanyl Citrate (Fentanyl Drip Premix) 2,000 mcg in 100 mls @ 3.045 mls/hr IV TITR EDWINA; 1 MCG/KG/HR PRN Reason: Protocol Norepinephrine (Levophed Drip 4 Mg/Ns 250 Ml) 4 mg in 250 mls @ 7.5 mls/hr IV TITR EDWINA; 2 MCG/MIN PRN Reason: Protocol Last Admin: 11/09/16 18:27 Dose: 7 mcg/min, 26.25 mls/hr Vasopressin 20 unit/ Sodium (Chloride) 101 mls @ 9.09 mls/hr IV TITR EDWINA; 0.03 UNITS/MIN PRN Reason: Protocol Insulin Aspart (Novolog) 0 units SUB-Q Q6HR EDWINA PRN Reason: Protocol Last Admin: 11/09/16 18:30 Dose: Not Given Labetalol HCl (Normodyne) 20 mg IV Q6H PRN PRN Reason: Hypertension Last Admin: 10/25/16 05:33 Dose: 20 mg Loperamide HCl (Imodium A-D) 2 mg PO Q2H PRN PRN Reason: Diarrhea Last Admin: 11/03/16 14:09 Dose: 2 mg Metoprolol Tartrate (Lopressor) 25 mg PO BID EDWINA Last Admin: 11/09/16 09:32 Dose: Not Given Multi-Ingred Cream/Lotion/Oil/Oint (Artificial Tears Ophth Oint) 1 applic OU Q4H PRN PRN Reason: Dry Eye(s) Ondansetron HCl (Zofran) 4 mg IV Q8H PRN PRN Reason: Nausea And Vomiting Simple Syrup (Simple Syrup) 15 ml FEEDTUBE PRN PRN PRN Reason: Hypoglycemia Simple Syrup (Simple Syrup) 30 ml FEEDTUBE PRN PRN PRN Reason: Hypoglycemia Sodium Bicarbonate (Sodium Bicarbonate) 325 mg FEEDTUBE PRN PRN PRN Reason: For Clogged Feeding Tube Last Admin: 11/02/16 11:08 Dose: 325 mg Sodium Chloride (Sodium Chloride Flush Syringe 10 Ml) 10 ml IV PRN PRN PRN Reason: LINE FLUSH Last Admin: 10/17/16 20:45 Dose: 10 ml Review of Systems Constitutional: other (unresponsive) Respiratory: other (on the vent.) Exam - Constitutional Vitals: Temp Pulse Resp BP Pulse Ox 99.2 F 98 H 20 108/60 100 11/09/16 20:00 11/09/16 20:44 11/09/16 18:30 11/09/16 20:44 11/09/16 21:00 - EENT Eyes: Present: PERRL ENT: hearing intact, clear oral mucosa - Neck Neck: Present: supple, normal ROM - Cardiovascular Heart Sounds: Present: S1 & S2. Absent: rub, click - Extremities Extremities: pulses symmetrical, No edema Peripheral Pulses: within normal limits - Abdominal General gastrointestinal: Present: soft, non-distended, normal bowel sounds Male genitourinary: Present: deferred - Rectal Rectal Exam: deferred - Integumentary Integumentary: Present: clear, warm, dry Results - Labs CBC & Chem 7: 11/09/16 07:39 11/09/16 07:39 Labs: Abnormal lab results 11/09/16 11/09/16 11/09/16 Range/Units 00:27 05:22 07:39 WBC 11.1 H (4.5-11.0) K/mm3 RBC 2.91 L (3.65-5.03) M/mm3 Hgb 8.9 L (11.8-15.2) gm/dl Hct 27.7 L (35.5-45.6) % MCV 95 H (84-94) fl RDW 17.4 H (13.2-15.2) % Plt Count 59 L (140-440) K/mm3 Potassium (3.6-5.0) mmol/L BUN (9-20) mg/dL Creatinine (0.8-1.5) mg/dL Glucose (75-100) mg/dL POC Glucose 196 H 213 H (70-105) Calcium (8.4-10.2) mg/dL 11/09/16 11/09/16 11/09/16 Range/Units 07:39 12:24 18:01 WBC (4.5-11.0) K/mm3 RBC (3.65-5.03) M/mm3 Hgb (11.8-15.2) gm/dl Hct (35.5-45.6) % MCV (84-94) fl RDW (13.2-15.2) % Plt Count (140-440) K/mm3 Potassium 3.3 L (3.6-5.0) mmol/L BUN 47 H (9-20) mg/dL Creatinine 1.9 H (0.8-1.5) mg/dL Glucose 207 H (75-100) mg/dL POC Glucose 148 H 123 H (70-105) Calcium 7.6 L (8.4-10.2) mg/dL Assessment and Plan - Patient Problems (1) Anemia Current Visit: Yes Status: Acute Qualifiers: Anemia type: unspecified type Iron deficiency anemia type: I Vitamin B12 deficiency anemia type: V Folate deficiency anemia type: F Bone marrow failure anemia type: B Hemolytic anemia type: H Other causes of anemia: O Chronic kidney disease stage: C Qualified Code(s): D64.9 - Anemia, unspecified Plan to address problem: will replace if less than 7.0 (2) Leucopenia Current Visit: Yes Status: Acute Qualifiers: Leukopenia type: unspecified Neutropenia type: N Qualified Code(s): D72.819 - Decreased white blood cell count, unspecified Plan to address problem: not binding. (3) Renal failure Current Visit: Yes Status: Acute Qualifiers: Renal failure chronicity: acute Acute renal failure type: unspecified Chronic kidney disease stage: C Qualified Code(s): N17.9 - Acute kidney failure, unspecified Plan to address problem: See w/up, and renal service. 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
[2016-11-10] MEDS: LOPRESSOR PO SCH ×3 (01:19→23:00)
[2016-11-10 06:38] LABS: Hematocrit 25.9 % (35.5-45.6); Hemoglobin 8.3 gm/dl (11.8-15.2); Mean Corpuscular HGB Conc 32 % (32-34); Mean Corpuscular Hemoglobin 31 pg (28-32); Mean Corpuscular Volume 98 fl (84-94); Red Blood Count 2.66 M/mm3 (3.65-5.03); Red Cell Distribution Width 17.6 % (13.2-15.2); White Blood Count 10.9 K/mm3 (4.5-11.0)
[2016-11-10 06:48] LABS: Platelet Count 50 K/mm3 (140-440)
[2016-11-10 07:15] LABS: BUN/Creatinine Ratio 27.82; Calcium 7.6 mg/dL (8.4-10.2); Chloride 99.6 mmol/L (98-107); Potassium 3.6 mmol/L (3.6-5.0)
[2016-11-10] MEDS: NOVOLOG SUB-Q SCH ×5 (08:20→23:00)
--- NOTE | 2016-11-10 14:59 | Progress Note ---
Assessment and Plan (1) Renal failure Current Visit: Yes Status: Acute Qualifiers: Renal failure chronicity: acute Acute renal failure type: unspecified Chronic kidney disease stage: C Qualified Code(s): N17.9 - Acute kidney failure, unspecified Plan to address problem: HD today for clearance and volume removal On Levophed drip Strict I/O monitoring Avoid Nephrotoxic agents Renally dose medications Obtain daily weights (2) Acute respiratory failure Current Visit: Yes Status: Acute Qualifiers: Respiratory failure complication: hypoxia Qualified Code(s): J96.01 - Acute respiratory failure with hypoxia Plan to address problem: on the vent via trach as per Pulmonary (3) Anemia Current Visit: Yes Status: Acute Qualifiers: Anemia type: unspecified type Iron deficiency anemia type: I Vitamin B12 deficiency anemia type: V Folate deficiency anemia type: F Bone marrow failure anemia type: B Hemolytic anemia type: H Other causes of anemia: O Chronic kidney disease stage: C Qualified Code(s): D64.9 - Anemia, unspecified Plan to address problem: Monitor labs and transfuse as needed Hematology onboard (4) Thrombocytopenia Current Visit: Yes Status: Acute Plan to address problem: per hematology (5) Atrial fibrillation Current Visit: Yes Status: Acute Qualifiers: Atrial fibrillation type: A Plan to address problem: On Metoprolol Subjective Date of service: 11/10/16 Principal diagnosis: Sepsis Syndrome; MAHA; RAJESH; CHF; TTP Interval history: on the vent, no family at bedside Objective - Vital Signs Vital signs: Vital Signs - 12hr 11/10/16 11/10/16 11/10/16 03:00 03:15 03:30 Temperature Pulse Rate 99 H 99 H 99 H Pulse Rate [ From Monitor] Respiratory 22 21 20 Rate Blood Pressure 94/48 85/51 83/47 O2 Sat by Pulse 90 98 Oximetry 11/10/16 11/10/16 11/10/16 03:45 04:00 04:15 Temperature 100.0 F H Pulse Rate 98 H 98 H 101 H Pulse Rate [ From Monitor] Respiratory 20 23 18 Rate Blood Pressure 79/55 75/51 82/55 O2 Sat by Pulse Oximetry 11/10/16 11/10/16 11/10/16 04:30 04:41 04:45 Temperature Pulse Rate 98 H 102 H 101 H Pulse Rate [ From Monitor] Respiratory 21 23 Rate Blood Pressure 79/52 79/52 85/52 O2 Sat by Pulse 100 Oximetry 11/10/16 11/10/16 11/10/16 05:00 05:15 05:30 Temperature Pulse Rate 103 H 102 H 98 H Pulse Rate [ From Monitor] Respiratory 26 H 24 22 Rate Blood Pressure 101/52 83/48 91/52 O2 Sat by Pulse 98 92 Oximetry 11/10/16 11/10/16 11/10/16 05:36 05:45 06:00 Temperature Pulse Rate 98 H 98 H Pulse Rate [ 101 H From Monitor] Respiratory 26 H 21 22 Rate Blood Pressure 93/52 97/52 O2 Sat by Pulse 100 99 Oximetry 11/10/16 11/10/16 11/10/16 06:15 06:30 06:45 Temperature Pulse Rate 102 H 98 H 102 H Pulse Rate [ From Monitor] Respiratory 25 H 21 27 H Rate Blood Pressure 99/55 94/49 88/51 O2 Sat by Pulse 94 Oximetry 11/10/16 11/10/16 11/10/16 07:00 07:15 07:30 Temperature Pulse Rate 99 H 98 H 99 H Pulse Rate [ From Monitor] Respiratory 18 22 22 Rate Blood Pressure 95/51 86/59 79/52 O2 Sat by Pulse Oximetry 11/10/16 11/10/16 11/10/16 07:45 08:00 08:15 Temperature 99 F Pulse Rate 99 H 99 H 99 H Pulse Rate [ 104 H From Monitor] Respiratory 21 21 20 Rate Blood Pressure 99/56 94/51 108/51 O2 Sat by Pulse 95 Oximetry 11/10/16 11/10/16 11/10/16 08:30 08:45 09:00 Temperature Pulse Rate 98 H 106 H 100 H Pulse Rate [ From Monitor] Respiratory 21 29 H 18 Rate Blood Pressure 95/52 111/62 98/56 O2 Sat by Pulse 93 100 99 Oximetry 11/10/16 11/10/16 11/10/16 09:15 09:30 09:37 Temperature Pulse Rate 100 H 101 H 101 H Pulse Rate [ From Monitor] Respiratory 22 19 Rate Blood Pressure 100/57 99/57 99/57 O2 Sat by Pulse 100 85 100 Oximetry 11/10/16 11/10/16 11:15 12:00 Temperature 99.4 F Pulse Rate 101 H Pulse Rate [ From Monitor] Respiratory Rate Blood Pressure 111/61 O2 Sat by Pulse 100 Oximetry - General Appearance General appearance: other (on the vent) EENT: mucous membranes dry Neck: no JVD, no carotid bruit Respiratory: Present: Decreased Breath Sounds Cardiology: tachycardia Gastrointestinal: hypoactive bowel sounds Integumentary: no rash, warm and dry Neurologic: other (does not follow commands) Musculoskeletal: other (2+ pitting edema in BLE) Psychiatric: other (does not answer questions) - Lab 11/10/16 06:15 11/10/16 06:15 Most recent lab results Calcium 7.6 mg/dL (8.4-10.2) L 11/10/16 06:15 Phosphorus 5.80 mg/dL (2.5-4.5) H 11/03/16 03:25
--- NOTE | 2016-11-10 16:29 | Progress Note ---
Assessment and Plan Patient is a 61-year-old man without known past medical history who presented to the emergency department [facility] on 10/13/16, complaining of bilateral leg swelling that worsened for the last 4 days. He was found to have severe metabolic acidosis, creatinine was 14.5 with hyperkalemia, emergent Hemodialysis was done. He was also found to have severe pancytopenia, thrombocytopenia and Dr. 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 He was on bipap and was intubated 10/16/16, details are not readily available on why he needed to be intubated, no nursing note for 10/16. -Acute encephalopathy, not sedated, neurology following [facility] confirms multifocal hemorrhagic lesions but no midline shift/compression of brain structures/significant mass effect and is actually improved from prior MRI. CTA H/N w/o vascular lesion. JONATHAN w/o endocarditis or source of emboli. 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 Avoid all blood thinners until hemorrhage stable. BP control: goal < 140/90 -AFIB WITH RVR, stable: Cardiology is following -Group B strep bacteremia: JONATHAN done on 10/27/16 -Acute Respiratory failure with hypoxia, intubated: continue mv -Pancytopenia [leukopenia, severe anemia, Woresening thrombocytopenia] heme/onc is following, s/p PLASMAPHERSIS, s/p PRBC transfusion, s/p plt -ARF, renal tubular stasis, poa s/p hemodialysis: monitor closely -secondary coagulopathy -Lactic acidosis -Probable TTP, await [id number] results -hypoglycemia, resolved -Acute systolic congestive heart failure EF around 30% -SEVERE SEPSIS, poa - cardiogenic shock, on levophed Trach and peg done 11/05/16: pt count dropped to 34, renal function much improved, h/h steady, continue to monitor. 11/06/16: plt count still low. Repeat in am. Severe protein calorie malnutrition , poa, getting worse, ?increase PEG feedings, Tour Counselor is following. 11/07/16: ADAMT13 still pending, Heme/onc to follow up. 11/08/13: Platelet count improving, ADAMT13 still pending. cont supportive care 11/09/14: no new issue, cont supportive care. Platelet count improving, ADAMT13 still pending. hematology following. 11/10/16: zeynep at 50 today, continue to follow with repeat lab Subjective Date of service: 11/10/16 Principal diagnosis: Sepsis Syndrome; MAHA; RAJESH; CHF; TTP Interval history: Patient seen and examined. Patient still intubated. Overnight uneventful. Imaging, old records, testing, labs, nursing notes reviewed. Objective - Exam Narrative Exam: GEN: Critically ill intubated but not sedated HEENT: Eyes are floating,trach in place CVS: irregular, NORMAL S1S2 LUNGS/CHEST: NORMAL CHEST EXPANSION B, GOOD AIR ENTRY B ABD: SOFT, peg in place POSITIVE BOWEL SOUNDS, NONDISTENDED, NO REBOUND OR GUARDING NEURO: CN 2-12 GROSSLY INTACT, he doesn't follow commands PSY: Unresponsive - Constitutional Vitals: Vital Signs - 12hr 11/10/16 11/10/16 11/10/16 04:30 04:41 04:45 Temperature Pulse Rate 98 H 102 H 101 H Pulse Rate [ From Monitor] Respiratory 21 23 Rate Blood Pressure 79/52 79/52 85/52 O2 Sat by Pulse 100 Oximetry O2 Sat by Pulse Oximetry [ Bilateral Throughout] 11/10/16 11/10/16 11/10/16 05:00 05:15 05:30 Temperature Pulse Rate 103 H 102 H 98 H Pulse Rate [ From Monitor] Respiratory 26 H 24 22 Rate Blood Pressure 101/52 83/48 91/52 O2 Sat by Pulse 98 92 Oximetry O2 Sat by Pulse Oximetry [ Bilateral Throughout] 11/10/16 11/10/16 11/10/16 05:36 05:45 06:00 Temperature Pulse Rate 98 H 98 H Pulse Rate [ 101 H From Monitor] Respiratory 26 H 21 22 Rate Blood Pressure 93/52 97/52 O2 Sat by Pulse 100 99 Oximetry O2 Sat by Pulse Oximetry [ Bilateral Throughout] 11/10/16 11/10/16 11/10/16 06:15 06:30 06:45 Temperature Pulse Rate 102 H 98 H 102 H Pulse Rate [ From Monitor] Respiratory 25 H 21 27 H Rate Blood Pressure 99/55 94/49 88/51 O2 Sat by Pulse 94 Oximetry O2 Sat by Pulse Oximetry [ Bilateral Throughout] 11/10/16 11/10/16 11/10/16 07:00 07:15 07:30 Temperature Pulse Rate 99 H 98 H 99 H Pulse Rate [ From Monitor] Respiratory 18 22 22 Rate Blood Pressure 95/51 86/59 79/52 O2 Sat by Pulse Oximetry O2 Sat by Pulse Oximetry [ Bilateral Throughout] 11/10/16 11/10/16 11/10/16 07:45 08:00 08:15 Temperature 99 F Pulse Rate 99 H 99 H 99 H Pulse Rate [ 104 H From Monitor] Respiratory 21 21 20 Rate Blood Pressure 99/56 94/51 108/51 O2 Sat by Pulse 95 Oximetry O2 Sat by Pulse Oximetry [ Bilateral Throughout] 11/10/16 11/10/16 11/10/16 08:30 08:45 09:00 Temperature Pulse Rate 98 H 106 H 100 H Pulse Rate [ From Monitor] Respiratory 21 29 H 18 Rate Blood Pressure 95/52 111/62 98/56 O2 Sat by Pulse 93 100 99 Oximetry O2 Sat by Pulse Oximetry [ Bilateral Throughout] 11/10/16 11/10/16 11/10/16 09:15 09:30 09:37 Temperature Pulse Rate 100 H 101 H 101 H Pulse Rate [ From Monitor] Respiratory 22 19 Rate Blood Pressure 100/57 99/57 99/57 O2 Sat by Pulse 100 85 100 Oximetry O2 Sat by Pulse Oximetry [ Bilateral Throughout] 11/10/16 11/10/16 11/10/16 11:15 12:00 14:15 Temperature 99.4 F 99.4 F Pulse Rate 101 H 103 H Pulse Rate [ From Monitor] Respiratory 21 Rate Blood Pressure 111/61 106/46 O2 Sat by Pulse 100 Oximetry O2 Sat by Pulse 100 Oximetry [ Bilateral Throughout] 11/10/16 11/10/16 11/10/16 14:30 14:45 15:00 Temperature Pulse Rate 103 H 100 H 110 H Pulse Rate [ From Monitor] Respiratory Rate Blood Pressure 106/46 96/50 83/35 O2 Sat by Pulse Oximetry O2 Sat by Pulse Oximetry [ Bilateral Throughout] 11/10/16 11/10/16 11/10/16 15:15 15:27 15:30 Temperature Pulse Rate 106 H 106 H 104 H Pulse Rate [ From Monitor] Respiratory Rate Blood Pressure 100/45 78/44 90/49 O2 Sat by Pulse Oximetry O2 Sat by Pulse Oximetry [ Bilateral Throughout] 11/10/16 11/10/16 11/10/16 15:44 15:57 16:16 Temperature Pulse Rate 102 H 105 H 102 H Pulse Rate [ From Monitor] Respiratory Rate Blood Pressure 93/37 109/42 97/36 O2 Sat by Pulse Oximetry O2 Sat by Pulse Oximetry [ Bilateral Throughout] 11/10/16 16:19 Temperature Pulse Rate 105 H Pulse Rate [ From Monitor] Respiratory Rate Blood Pressure 97/36 O2 Sat by Pulse 100 Oximetry O2 Sat by Pulse Oximetry [ Bilateral Throughout] - Labs CBC & Chem 7: 11/10/16 06:15 11/10/16 06:15 Labs: Abnormal lab results 11/09/16 11/10/16 11/10/16 Range/Units 18:01 00:34 06:15 RBC 2.66 L (3.65-5.03) M/mm3 Hgb 8.3 L (11.8-15.2) gm/dl Hct 25.9 L (35.5-45.6) % MCV 98 H D (84-94) fl RDW 17.6 H (13.2-15.2) % Plt Count 50 L (140-440) K/mm3 BUN (9-20) mg/dL Creatinine (0.8-1.5) mg/dL Glucose (75-100) mg/dL POC Glucose 123 H 176 H (70-105) Calcium (8.4-10.2) mg/dL 11/10/16 11/10/16 Range/Units 06:15 12:03 RBC (3.65-5.03) M/mm3 Hgb (11.8-15.2) gm/dl Hct (35.5-45.6) % MCV (84-94) fl RDW (13.2-15.2) % Plt Count (140-440) K/mm3 BUN 64 H (9-20) mg/dL Creatinine 2.3 H (0.8-1.5) mg/dL Glucose 154 H (75-100) mg/dL POC Glucose 121 H (70-105) Calcium 7.6 L (8.4-10.2) mg/dL
[2016-11-10] MEDS: D50W (25GM) IV PRN (17:14)
[2016-11-10] MEDS: HEPARIN IV PRN (19:13)
--- NOTE | 2016-11-10 21:15 | Consultation ---
History of Present Illness - Reason for Consult Consult date: 11/10/16 - History of Present Illness Patient seen/examined, labs reviewed, showing some improvement.. no new labs from special labs. Past History Past Medical History: hypertension, other (Had shingles in November 25-) Past Surgical History: No surgical history Social history: , full code, other (Patienti s and lives with his ). denies: smoking, alcohol abuse, prescription drug abuse, IV drug use Family history: no significant family history Medications and Allergies Allergies Allergy/AdvReac Type Severity Reaction Status Date / Time No Known Allergies Allergy Unverified 10/13/16 09:41 Home Medications Medication Instructions Recorded Confirmed Last Taken Type Naproxen Sodium [Aleve TAB] 2 tab PO Q8H PRN 10/13/16 10/13/16 10/12/16 14:00 History Active Meds: Active Medications Acetaminophen (Tylenol) 1,000 mg CO Q4H PRN PRN Reason: Pain, Mild (1-3) Last Admin: 10/20/16 15:40 Dose: 1,000 mg Acetaminophen (Tylenol) 650 mg FEEDTUBE Q6H PRN PRN Reason: Pain, Mild (1-3) Last Admin: 10/24/16 10:56 Dose: 650 mg Alteplase, Recombinant (Cathflo) 4 mg IV ROD PRN PRN Reason: hemodialysis Last Admin: 11/07/16 14:24 Dose: 4 mg Lipase/Protease/Amylase (Pancreaze Dr 10,500 Unit) 1 each FEEDTUBE PRN PRN PRN Reason: For Clogged Feeding Tube Dextrose (D50w (25gm)) 25 ml IV PRN PRN PRN Reason: Hypoglycemia Last Admin: 11/10/16 17:14 Dose: 25 ml Diphenhydramine HCl (Benadryl) 50 mg IV Q6H PRN PRN Reason: Itching Last Admin: 10/24/16 10:57 Dose: 50 mg Famotidine (Pepcid) 20 mg PO Q24H EDWINA Last Admin: 11/09/16 09:32 Dose: 20 mg Haloperidol Lactate (Haldol) 5 mg IM Q6H PRN PRN Reason: Agitation Last Admin: 10/14/16 21:11 Dose: 5 mg Heparin Sodium (Porcine) (Heparin) 10,000 unit IV ROD PRN PRN Reason: for plasmapheresis- vascath Last Admin: 11/10/16 19:13 Dose: 10,000 unit Hydrophilic Ointment (Vaseline Lip Therapy) 1 applic TP Q2H PRN PRN Reason: Dry Lips Fentanyl Citrate (Fentanyl Drip Premix) 2,000 mcg in 100 mls @ 3.045 mls/hr IV TITR EDWINA; 1 MCG/KG/HR PRN Reason: Protocol Norepinephrine (Levophed Drip 4 Mg/Ns 250 Ml) 4 mg in 250 mls @ 7.5 mls/hr IV TITR EDWINA; 2 MCG/MIN PRN Reason: Protocol Last Admin: 11/09/16 18:27 Dose: 7 mcg/min, 26.25 mls/hr Vasopressin 20 unit/ Sodium (Chloride) 101 mls @ 9.09 mls/hr IV TITR EDWINA; 0.03 UNITS/MIN PRN Reason: Protocol Insulin Aspart (Novolog) 0 units SUB-Q Q6HR EDWINA PRN Reason: Protocol Last Admin: 11/10/16 20:30 Dose: Not Given Labetalol HCl (Normodyne) 20 mg IV Q6H PRN PRN Reason: Hypertension Last Admin: 10/25/16 05:33 Dose: 20 mg Loperamide HCl (Imodium A-D) 2 mg PO Q2H PRN PRN Reason: Diarrhea Last Admin: 11/03/16 14:09 Dose: 2 mg Metoprolol Tartrate (Lopressor) 25 mg PO BID EDWINA Last Admin: 11/10/16 10:00 Dose: Not Given Multi-Ingred Cream/Lotion/Oil/Oint (Artificial Tears Ophth Oint) 1 applic OU Q4H PRN PRN Reason: Dry Eye(s) Ondansetron HCl (Zofran) 4 mg IV Q8H PRN PRN Reason: Nausea And Vomiting Simple Syrup (Simple Syrup) 15 ml FEEDTUBE PRN PRN PRN Reason: Hypoglycemia Simple Syrup (Simple Syrup) 30 ml FEEDTUBE PRN PRN PRN Reason: Hypoglycemia Sodium Bicarbonate (Sodium Bicarbonate) 325 mg FEEDTUBE PRN PRN PRN Reason: For Clogged Feeding Tube Last Admin: 11/02/16 11:08 Dose: 325 mg Sodium Chloride (Sodium Chloride Flush Syringe 10 Ml) 10 ml IV PRN PRN PRN Reason: LINE FLUSH Last Admin: 10/17/16 20:45 Dose: 10 ml Review of Systems Constitutional: other (non responsive) Exam - Constitutional Vitals: Temp Pulse Resp BP Pulse Ox 98.6 F 104 H 20 123/60 100 11/10/16 20:00 11/10/16 20:36 11/10/16 19:08 11/10/16 20:36 11/10/16 20:36 - EENT Eyes: Present: PERRL ENT: hearing intact, clear oral mucosa - Neck Neck: Present: supple, normal ROM - Cardiovascular Heart Sounds: Present: S1 & S2. Absent: rub, click - Extremities Extremities: pulses symmetrical, No edema Peripheral Pulses: within normal limits - Abdominal General gastrointestinal: Present: soft, non-tender, non-distended, normal bowel sounds Male genitourinary: Present: deferred - Rectal Rectal Exam: deferred - Integumentary Integumentary: Present: clear, warm, dry Results - Labs CBC & Chem 7: 11/10/16 06:15 11/10/16 06:15 Labs: Abnormal lab results 11/10/16 11/10/16 11/10/16 Range/Units 00:34 06:15 06:15 RBC 2.66 L (3.65-5.03) M/mm3 Hgb 8.3 L (11.8-15.2) gm/dl Hct 25.9 L (35.5-45.6) % MCV 98 H D (84-94) fl RDW 17.6 H (13.2-15.2) % Plt Count 50 L (140-440) K/mm3 BUN 64 H (9-20) mg/dL Creatinine 2.3 H (0.8-1.5) mg/dL Glucose 154 H (75-100) mg/dL POC Glucose 176 H (70-105) Calcium 7.6 L (8.4-10.2) mg/dL 11/10/16 11/10/16 Range/Units 12:03 17:03 RBC (3.65-5.03) M/mm3 Hgb (11.8-15.2) gm/dl Hct (35.5-45.6) % MCV (84-94) fl RDW (13.2-15.2) % Plt Count (140-440) K/mm3 BUN (9-20) mg/dL Creatinine (0.8-1.5) mg/dL Glucose (75-100) mg/dL POC Glucose 121 H < 40 L (70-105) Calcium (8.4-10.2) mg/dL Assessment and Plan - Patient Problems (1) Anemia Current Visit: Yes Status: Acute Qualifiers: Anemia type: unspecified type Iron deficiency anemia type: I Vitamin B12 deficiency anemia type: V Folate deficiency anemia type: F Bone marrow failure anemia type: B Hemolytic anemia type: H Other causes of anemia: O Chronic kidney disease stage: C Qualified Code(s): D64.9 - Anemia, unspecified Plan to address problem: will replace if less than 7.0 (2) Leucopenia Current Visit: Yes Status: Acute Qualifiers: Leukopenia type: unspecified Neutropenia type: N Qualified Code(s): D72.819 - Decreased white blood cell count, unspecified Plan to address problem: not binding. (3) Renal failure Current Visit: Yes Status: Acute Qualifiers: Renal failure chronicity: acute Acute renal failure type: unspecified Chronic kidney disease stage: C Qualified Code(s): N17.9 - Acute kidney failure, unspecified Plan to address problem: See w/up, and renal service. see notes Follow blasting worker.
[2016-11-10] MEDS: PEPCID PO SCH (22:59)
[2016-11-10] MEDS: LEVOPHED DRIP 4 MG/NS 250 ML 4 MG/250 ML BAG IV SCH (23:02)
[2016-11-11] MEDS: LEVOPHED DRIP 4 MG/NS 250 ML 4 MG/250 ML BAG IV SCH ×4 (01:15→16:59)
[2016-11-11] MEDS: NOVOLOG SUB-Q SCH ×4 (06:20→18:23)
[2016-11-11] MEDS: LOPRESSOR PO SCH ×2 (10:00→22:17)
[2016-11-11] MEDS: PEPCID PO SCH (10:00)
--- NOTE | 2016-11-11 10:08 | Progress Note ---
Assessment and Plan (1) Renal failure Current Visit: Yes Status: Acute Qualifiers: Renal failure chronicity: acute Acute renal failure type: unspecified Chronic kidney disease stage: C Qualified Code(s): N17.9 - Acute kidney failure, unspecified Plan to address problem: HD again today for clearance and volume removal On Levophed drip Strict I/O monitoring Avoid Nephrotoxic agents Renally dose medications Obtain daily weights (2) Acute respiratory failure Current Visit: Yes Status: Acute Qualifiers: Respiratory failure complication: hypoxia Qualified Code(s): J96.01 - Acute respiratory failure with hypoxia Plan to address problem: on the vent via trach as per Pulmonary (3) Anemia Current Visit: Yes Status: Acute Qualifiers: Anemia type: unspecified type Iron deficiency anemia type: I Vitamin B12 deficiency anemia type: V Folate deficiency anemia type: F Bone marrow failure anemia type: B Hemolytic anemia type: H Other causes of anemia: O Chronic kidney disease stage: C Qualified Code(s): D64.9 - Anemia, unspecified Plan to address problem: Monitor labs and transfuse as needed Hematology onboard (4) Thrombocytopenia Current Visit: Yes Status: Acute Plan to address problem: per hematology (5) Atrial fibrillation Current Visit: Yes Status: Acute Qualifiers: Atrial fibrillation type: A Plan to address problem: On Metoprolol Subjective Date of service: 11/11/16 Principal diagnosis: Sepsis Syndrome; MAHA; RAJESH; CHF; TTP Interval history: on the vent, at bedside, all questions answered Objective - Vital Signs Vital signs: Vital Signs - 12hr 11/10/16 11/10/16 11/10/16 22:15 22:30 22:45 Temperature Pulse Rate 103 H 102 H 101 H Pulse Rate [ From Monitor] Respiratory 18 22 16 Rate Respiratory Rate [ Generalized] Blood Pressure 82/42 86/43 94/50 O2 Sat by Pulse 29 L 100 99 Oximetry O2 Sat by Pulse Oximetry [ Assessment] 11/10/16 11/10/16 11/10/16 23:00 23:15 23:30 Temperature Pulse Rate 103 H 103 H 101 H Pulse Rate [ From Monitor] Respiratory 22 20 17 Rate Respiratory Rate [ Generalized] Blood Pressure 89/53 100/53 108/53 O2 Sat by Pulse 97 99 98 Oximetry O2 Sat by Pulse Oximetry [ Assessment] 11/10/16 11/11/16 11/11/16 23:45 00:00 00:10 Temperature 98.4 F Pulse Rate 101 H 101 H 102 H Pulse Rate [ 101 H From Monitor] Respiratory 19 20 Rate Respiratory Rate [ Generalized] Blood Pressure 88/47 88/52 88/52 O2 Sat by Pulse 84 100 100 Oximetry O2 Sat by Pulse Oximetry [ Assessment] 11/11/16 11/11/16 11/11/16 00:15 00:30 00:45 Temperature Pulse Rate 105 H 104 H 104 H Pulse Rate [ From Monitor] Respiratory 19 23 21 Rate Respiratory Rate [ Generalized] Blood Pressure 92/59 94/55 104/54 O2 Sat by Pulse 87 98 100 Oximetry O2 Sat by Pulse Oximetry [ Assessment] 11/11/16 11/11/16 11/11/16 01:00 01:15 01:30 Temperature Pulse Rate 103 H 103 H 100 H Pulse Rate [ From Monitor] Respiratory 21 18 20 Rate Respiratory Rate [ Generalized] Blood Pressure 104/59 97/56 88/55 O2 Sat by Pulse 99 96 95 Oximetry O2 Sat by Pulse Oximetry [ Assessment] 11/11/16 11/11/16 11/11/16 01:45 01:52 02:00 Temperature Pulse Rate 101 H 101 H Pulse Rate [ From Monitor] Respiratory 18 15 Rate Respiratory 16 Rate [ Generalized] Blood Pressure 86/56 96/53 O2 Sat by Pulse 93 99 Oximetry O2 Sat by Pulse Oximetry [ Assessment] 11/11/16 11/11/16 11/11/16 02:15 02:30 02:45 Temperature Pulse Rate 100 H 103 H 99 H Pulse Rate [ From Monitor] Respiratory 20 22 21 Rate Respiratory Rate [ Generalized] Blood Pressure 91/55 88/55 98/47 O2 Sat by Pulse 95 94 96 Oximetry O2 Sat by Pulse Oximetry [ Assessment] 11/11/16 11/11/16 11/11/16 03:00 03:15 03:30 Temperature Pulse Rate 98 H 98 H 101 H Pulse Rate [ From Monitor] Respiratory 21 17 21 Rate Respiratory Rate [ Generalized] Blood Pressure 98/53 98/55 98/58 O2 Sat by Pulse 97 95 97 Oximetry O2 Sat by Pulse Oximetry [ Assessment] 11/11/16 11/11/16 11/11/16 03:45 04:00 04:15 Temperature 100.1 F H Pulse Rate 100 H 102 H 101 H Pulse Rate [ 102 H From Monitor] Respiratory 17 22 24 Rate Respiratory Rate [ Generalized] Blood Pressure 103/55 101/55 104/70 O2 Sat by Pulse 97 95 93 Oximetry O2 Sat by Pulse Oximetry [ Assessment] 11/11/16 11/11/16 11/11/16 04:30 04:37 04:46 Temperature Pulse Rate 98 H Pulse Rate [ From Monitor] Respiratory Rate Respiratory Rate [ Generalized] Blood Pressure 128/67 101/55 128/67 O2 Sat by Pulse 98 98 100 Oximetry O2 Sat by Pulse Oximetry [ Assessment] 11/11/16 11/11/16 11/11/16 05:00 05:16 05:30 Temperature Pulse Rate 110 H 100 H 100 H Pulse Rate [ From Monitor] Respiratory 31 H 20 15 Rate Respiratory Rate [ Generalized] Blood Pressure 110/68 110/68 110/68 O2 Sat by Pulse 100 95 100 Oximetry O2 Sat by Pulse Oximetry [ Assessment] 11/11/16 11/11/16 11/11/16 05:45 06:00 06:03 Temperature Pulse Rate 99 H 98 H Pulse Rate [ From Monitor] Respiratory 18 19 Rate Respiratory Rate [ Generalized] Blood Pressure 102/58 111/54 O2 Sat by Pulse 100 Oximetry O2 Sat by Pulse 100 Oximetry [ Assessment] 11/11/16 11/11/16 09:49 10:02 Temperature Pulse Rate 99 H Pulse Rate [ From Monitor] Respiratory Rate Respiratory Rate [ Generalized] Blood Pressure 88/58 O2 Sat by Pulse 100 Oximetry O2 Sat by Pulse 97 Oximetry [ Assessment] - General Appearance General appearance: frail EENT: mucous membranes dry Neck: no JVD, no carotid bruit Respiratory: Present: Decreased Breath Sounds Cardiology: tachycardia Gastrointestinal: hypoactive bowel sounds Integumentary: no rash, warm and dry Neurologic: other (does not follow commands) Musculoskeletal: other (1-2+ pitting edema in BLE) Psychiatric: other (does not answer questions) - Lab 11/10/16 06:15 11/10/16 06:15 Most recent lab results Calcium 7.6 mg/dL (8.4-10.2) L 11/10/16 06:15 Phosphorus 5.80 mg/dL (2.5-4.5) H 11/03/16 03:25
[2016-11-11 10:34] LABS: Albumin 1.7 g/dL (3.9-5); Albumin/Globulin Ratio 0.5 %; Bilirubin,Total 0.9 mg/dL (0.1-1.2); Calcium 7.6 mg/dL (8.4-10.2); Chloride 102.7 mmol/L (98-107); Potassium 3.4 mmol/L (3.6-5.0); Total Protein 4.9 g/dL (6.3-8.2)
[2016-11-11 11:03] LABS: Hematocrit 26.4 % (35.5-45.6); Hemoglobin 8.5 gm/dl (11.8-15.2); Mean Corpuscular HGB Conc 32 % (32-34); Mean Corpuscular Hemoglobin 31 pg (28-32); Mean Corpuscular Volume 96 fl (84-94); Red Blood Count 2.76 M/mm3 (3.65-5.03); Red Cell Distribution Width 17.3 % (13.2-15.2); White Blood Count 10.5 K/mm3 (4.5-11.0)
--- NOTE | 2016-11-11 11:17 | Progress Note ---
Assessment and Plan - Patient Problems (1) Sepsis Current Visit: Yes Status: Acute Qualifiers: Sepsis type: Streptococcus group B Qualified Code(s): A40.1 - Sepsis due to streptococcus, group B Plan to address problem: 1. Off antibiotics. Remains afebrile with stable BP presently. 2. Repeat blood culture and consider removing/ replacing indwelling lines if patient clinically worsens. 3. I will see as needed. Please call again if there are additional questions or concerns. Subjective Date of service: 11/11/16 Principal diagnosis: Sepsis Syndrome; MAHA; RAJESH; CHF; TTP Interval history: Remains in ICU. Requiring HD to remove volume. Afebrile. Objective - Exam Narrative Exam: tracheostomy in place, FiO2 30% - Constitutional Vitals: Vital Signs Temp Pulse Resp BP Pulse Ox 99.7 F H 103 H 22 119/51 99 11/11/16 10:03 11/11/16 11:00 11/11/16 10:03 11/11/16 11:00 11/11/16 10:03 Temperature -Last 24 Hours Temperature 99.7 F Temperature 99.7 F Temperature 100.1 F Temperature 98.4 F Temperature 98.6 F Temperature 98.7 F Temperature 99 F Temperature 99.4 F Temperature 99.4 F General appearance: Present: no acute distress - Respiratory Respiratory: bilateral: CTA, negative: rhonchi - Cardiovascular Rhythm: regular (mild tachycardia low 100s) Heart Sounds: Present: S1 & S2 Extremities: No edema - Gastrointestinal General gastrointestinal: Present: soft, other ((+) PEG in place) Rectal Exam: other (rectal tube removed) - Integumentary Integumentary: no rash - Psychiatric Psychiatric: other (opens eyes briefly to deep tactile stimuli) - Additional findings Additional findings: RIJ central line and right arm PICC in place - Labs CBC & Chem 7: 11/11/16 08:30 11/11/16 08:30 Labs: Abnormal lab results 11/10/16 11/10/16 11/11/16 Range/Units 12:03 17:03 00:03 RBC (3.65-5.03) M/mm3 Hgb (11.8-15.2) gm/dl Hct (35.5-45.6) % MCV (84-94) fl RDW (13.2-15.2) % Potassium (3.6-5.0) mmol/L BUN (9-20) mg/dL Creatinine (0.8-1.5) mg/dL Glucose (75-100) mg/dL POC Glucose 121 H < 40 L 121 H (70-105) Calcium (8.4-10.2) mg/dL AST (5-40) units/L Alkaline Phosphatase (35-129) units/L Total Protein (6.3-8.2) g/dL Albumin (3.9-5) g/dL 11/11/16 11/11/16 11/11/16 Range/Units 05:27 08:30 08:30 RBC 2.76 L (3.65-5.03) M/mm3 Hgb 8.5 L (11.8-15.2) gm/dl Hct 26.4 L (35.5-45.6) % MCV 96 H (84-94) fl RDW 17.3 H (13.2-15.2) % Potassium 3.4 L (3.6-5.0) mmol/L BUN 45 H (9-20) mg/dL Creatinine 1.8 H (0.8-1.5) mg/dL Glucose 138 H (75-100) mg/dL POC Glucose 113 H (70-105) Calcium 7.6 L (8.4-10.2) mg/dL AST 87 H (5-40) units/L Alkaline Phosphatase 635 H (35-129) units/L Total Protein 4.9 L (6.3-8.2) g/dL Albumin 1.7 L (3.9-5) g/dL Microbiology 10/26/16 17:30 Stool C. difficile DNA Amplification - Final 10/16/16 21:15 Peripheral/Venous Blood Culture - Final NO GROWTH AFTER 5 DAYS 10/16/16 20:30 Peripheral/Venous Blood Culture - Final NO GROWTH AFTER 5 DAYS 10/16/16 21:00 Tracheal Aspirate Sputum Culture - Final Sara Albicans 10/14/16 16:15 Peripheral/Venous Blood Culture - Preliminary Beta Hemolytic Strep Group B 10/14/16 15:33 Peripheral/Venous Blood Culture - Preliminary Beta Hemolytic Strep Group B Active Medications Acetaminophen (Tylenol) 1,000 mg SC Q4H PRN PRN Reason: Pain, Mild (1-3) Last Admin: 10/20/16 15:40 Dose: 1,000 mg Acetaminophen (Tylenol) 650 mg FEEDTUBE Q6H PRN PRN Reason: Pain, Mild (1-3) Last Admin: 10/24/16 10:56 Dose: 650 mg Alteplase, Recombinant (Cathflo) 4 mg IV ROD PRN PRN Reason: hemodialysis Last Admin: 11/07/16 14:24 Dose: 4 mg Lipase/Protease/Amylase (Pancreaze Dr 10,500 Unit) 1 each FEEDTUBE PRN PRN PRN Reason: For Clogged Feeding Tube Dextrose (D50w (25gm)) 25 ml IV PRN PRN PRN Reason: Hypoglycemia Last Admin: 11/10/16 17:14 Dose: 25 ml Diphenhydramine HCl (Benadryl) 50 mg IV Q6H PRN PRN Reason: Itching Last Admin: 10/24/16 10:57 Dose: 50 mg Famotidine (Pepcid) 20 mg PO Q24H EDWINA Last Admin: 11/10/16 22:59 Dose: 20 mg Haloperidol Lactate (Haldol) 5 mg IM Q6H PRN PRN Reason: Agitation Last Admin: 10/14/16 21:11 Dose: 5 mg Heparin Sodium (Porcine) (Heparin) 10,000 unit IV ROD PRN PRN Reason: for plasmapheresis- vascath Last Admin: 11/10/16 19:13 Dose: 10,000 unit Hydrophilic Ointment (Vaseline Lip Therapy) 1 applic TP Q2H PRN PRN Reason: Dry Lips Fentanyl Citrate (Fentanyl Drip Premix) 2,000 mcg in 100 mls @ 3.045 mls/hr IV TITR EDWINA; 1 MCG/KG/HR PRN Reason: Protocol Norepinephrine (Levophed Drip 4 Mg/Ns 250 Ml) 4 mg in 250 mls @ 7.5 mls/hr IV TITR EDWINA; 2 MCG/MIN PRN Reason: Protocol Last Admin: 11/11/16 07:41 Dose: 8 mcg/min, 30 mls/hr Vasopressin 20 unit/ Sodium (Chloride) 101 mls @ 9.09 mls/hr IV TITR EDWINA; 0.03 UNITS/MIN PRN Reason: Protocol Insulin Aspart (Novolog) 0 units SUB-Q Q6HR EDWINA PRN Reason: Protocol Last Admin: 11/11/16 06:20 Dose: Not Given Labetalol HCl (Normodyne) 20 mg IV Q6H PRN PRN Reason: Hypertension Last Admin: 10/25/16 05:33 Dose: 20 mg Loperamide HCl (Imodium A-D) 2 mg PO Q2H PRN PRN Reason: Diarrhea Last Admin: 11/03/16 14:09 Dose: 2 mg Metoprolol Tartrate (Lopressor) 25 mg PO BID EDWINA Last Admin: 11/10/16 23:00 Dose: Not Given Multi-Ingred Cream/Lotion/Oil/Oint (Artificial Tears Ophth Oint) 1 applic OU Q4H PRN PRN Reason: Dry Eye(s) Ondansetron HCl (Zofran) 4 mg IV Q8H PRN PRN Reason: Nausea And Vomiting Simple Syrup (Simple Syrup) 15 ml FEEDTUBE PRN PRN PRN Reason: Hypoglycemia Simple Syrup (Simple Syrup) 30 ml FEEDTUBE PRN PRN PRN Reason: Hypoglycemia Sodium Bicarbonate (Sodium Bicarbonate) 325 mg FEEDTUBE PRN PRN PRN Reason: For Clogged Feeding Tube Last Admin: 11/02/16 11:08 Dose: 325 mg Sodium Chloride (Sodium Chloride Flush Syringe 10 Ml) 10 ml IV PRN PRN PRN Reason: LINE FLUSH Last Admin: 10/17/16 20:45 Dose: 10 ml
[2016-11-11] MEDS ORDERED: NACL 0.9% 100 ML IV PRN (12:00)
[2016-11-11 12:14] LABS: Anisocytosis 1+; Basophils % (Manual) 0 % (0.0-1.8); Blastocytes % (Manual) 0 %; Eosinophils % (Manual) 0 % (0.0-4.3); Total Cells Counted Percent 0
[2016-11-11 12:15] LABS: Diff Status Complete; Large Platelets Few; Platelet Estimate Appe; Polychromasia Few
[2016-11-11 12:18] LABS: Platelet Count 45 K/mm3 (140-440)
--- NOTE | 2016-11-11 12:26 | Progress Note ---
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 - continue HD/UF per nephrology recs - follow I's and O's - correct electrolytes prn - continue to avoid nephrotoxins - per nephrology otherwise (3) Metabolic acidosis Current Visit: Yes Status: Acute Plan to address problem: - mixed etiology - Lactic Acidosis component resolved - sepsis may have been driving force for that - RAJESH component - continue HD/UF per nephrology prescription - completed Anti-infectives course and following clinically (4) CHF (congestive heart failure) Current Visit: Yes Status: Acute Qualifiers: Congestive heart failure type: C Congestive heart failure chronicity: C Plan to address problem: - ECHO consistent with possible infiltrating disease - EF 30& - will look to HD/UF for volume clearance as not responsive to diuretics - per cardiology otherwise (5) Pancytopenia Current Visit: Yes Status: Acute Plan to address problem: - hematology on case - s/p plasmapheresis - may need bone marrow evaluation - follow platelet count (6) Acute encephalopathy Current Visit: Yes Status: Acute Plan to address problem: - CT brain negative - likely toxic-metabolic encephalopathy element also - MRI abnormal - neurology evaluation ongoing - following clinically (7) Hypoglycemia Current Visit: Yes Status: Acute Plan to address problem: - improved - suspect sepsis related element - completed systemic steroid taper - also continue enteral nutrition - continue glycemic control via SSI at this point (8) Sepsis syndrome Current Visit: Yes Status: Acute Plan to address problem: - s/p antibiotic course - ID on case - CRP and lactate much improved - JONATHAN negative - following clinically - c-diff assay was negative - back on levophed but mostly for dialysis support (9) Discharge planning issues Current Visit: Yes Status: Acute Plan to address problem: - he remains critically ill on life sustaining interventions including MVS and at risk for further deterioration including ...34' CCT Subjective Date of service: 11/11/16 Principal diagnosis: Sepsis Syndrome; MAHA; RAJESH; CHF; TTP Interval history: Seen and examined at bedside; 24 hour events reviewed; nursing and respiratory care staff consulted; no adverse overnight events reported to me; resting in bed ; left on AC mode during diuresis as remains on levophed also at 20mics/min; no new issues otherwise Objective Vital Signs - 12hr 11/11/16 11/11/16 11/11/16 00:30 00:45 01:00 Temperature Pulse Rate 104 H 104 H 103 H Pulse Rate [ From Monitor] Respiratory 23 21 21 Rate Respiratory Rate [ Generalized] Blood Pressure 94/55 104/54 104/59 O2 Sat by Pulse 98 100 99 Oximetry O2 Sat by Pulse Oximetry [ Anterior Bilateral Throughout] O2 Sat by Pulse Oximetry [ Assessment] 11/11/16 11/11/16 11/11/16 01:15 01:30 01:45 Temperature Pulse Rate 103 H 100 H 101 H Pulse Rate [ From Monitor] Respiratory 18 20 18 Rate Respiratory Rate [ Generalized] Blood Pressure 97/56 88/55 86/56 O2 Sat by Pulse 96 95 93 Oximetry O2 Sat by Pulse Oximetry [ Anterior Bilateral Throughout] O2 Sat by Pulse Oximetry [ Assessment] 11/11/16 11/11/16 11/11/16 01:52 02:00 02:15 Temperature Pulse Rate 101 H 100 H Pulse Rate [ From Monitor] Respiratory 15 20 Rate Respiratory 16 Rate [ Generalized] Blood Pressure 96/53 91/55 O2 Sat by Pulse 99 95 Oximetry O2 Sat by Pulse Oximetry [ Anterior Bilateral Throughout] O2 Sat by Pulse Oximetry [ Assessment] 11/11/16 11/11/16 11/11/16 02:30 02:45 03:00 Temperature Pulse Rate 103 H 99 H 98 H Pulse Rate [ From Monitor] Respiratory 22 21 21 Rate Respiratory Rate [ Generalized] Blood Pressure 88/55 98/47 98/53 O2 Sat by Pulse 94 96 97 Oximetry O2 Sat by Pulse Oximetry [ Anterior Bilateral Throughout] O2 Sat by Pulse Oximetry [ Assessment] 11/11/16 11/11/16 11/11/16 03:15 03:30 03:45 Temperature Pulse Rate 98 H 101 H 100 H Pulse Rate [ From Monitor] Respiratory 17 21 17 Rate Respiratory Rate [ Generalized] Blood Pressure 98/55 98/58 103/55 O2 Sat by Pulse 95 97 97 Oximetry O2 Sat by Pulse Oximetry [ Anterior Bilateral Throughout] O2 Sat by Pulse Oximetry [ Assessment] 11/11/16 11/11/16 11/11/16 04:00 04:15 04:30 Temperature 100.1 F H Pulse Rate 102 H 101 H Pulse Rate [ 102 H From Monitor] Respiratory 22 24 Rate Respiratory Rate [ Generalized] Blood Pressure 101/55 104/70 128/67 O2 Sat by Pulse 95 93 98 Oximetry O2 Sat by Pulse Oximetry [ Anterior Bilateral Throughout] O2 Sat by Pulse Oximetry [ Assessment] 11/11/16 11/11/16 11/11/16 04:37 04:46 05:00 Temperature Pulse Rate 98 H 110 H Pulse Rate [ From Monitor] Respiratory 31 H Rate Respiratory Rate [ Generalized] Blood Pressure 101/55 128/67 110/68 O2 Sat by Pulse 98 100 100 Oximetry O2 Sat by Pulse Oximetry [ Anterior Bilateral Throughout] O2 Sat by Pulse Oximetry [ Assessment] 11/11/16 11/11/16 11/11/16 05:16 05:30 05:45 Temperature Pulse Rate 100 H 100 H 99 H Pulse Rate [ From Monitor] Respiratory 20 15 18 Rate Respiratory Rate [ Generalized] Blood Pressure 110/68 110/68 102/58 O2 Sat by Pulse 95 100 100 Oximetry O2 Sat by Pulse Oximetry [ Anterior Bilateral Throughout] O2 Sat by Pulse Oximetry [ Assessment] 11/11/16 11/11/16 11/11/16 06:00 06:03 08:00 Temperature 99.7 F H Pulse Rate 98 H Pulse Rate [ From Monitor] Respiratory 19 Rate Respiratory Rate [ Generalized] Blood Pressure 111/54 O2 Sat by Pulse Oximetry O2 Sat by Pulse Oximetry [ Anterior Bilateral Throughout] O2 Sat by Pulse 100 Oximetry [ Assessment] 11/11/16 11/11/16 11/11/16 09:49 10:00 10:02 Temperature Pulse Rate 99 H 102 H Pulse Rate [ From Monitor] Respiratory Rate Respiratory Rate [ Generalized] Blood Pressure 88/58 166/70 O2 Sat by Pulse 100 Oximetry O2 Sat by Pulse Oximetry [ Anterior Bilateral Throughout] O2 Sat by Pulse 97 Oximetry [ Assessment] 11/11/16 11/11/16 11/11/16 10:03 10:15 10:30 Temperature 99.7 F H Pulse Rate 102 H 102 H 103 H Pulse Rate [ From Monitor] Respiratory 22 Rate Respiratory Rate [ Generalized] Blood Pressure 166/70 141/64 129/55 O2 Sat by Pulse Oximetry O2 Sat by Pulse 99 Oximetry [ Anterior Bilateral Throughout] O2 Sat by Pulse Oximetry [ Assessment] 11/11/16 11/11/16 11/11/16 10:45 11:00 11:15 Temperature Pulse Rate 103 H 103 H 100 H Pulse Rate [ From Monitor] Respiratory Rate Respiratory Rate [ Generalized] Blood Pressure 113/54 119/51 102/49 O2 Sat by Pulse Oximetry O2 Sat by Pulse Oximetry [ Anterior Bilateral Throughout] O2 Sat by Pulse Oximetry [ Assessment] 11/11/16 11/11/16 11/11/16 11:30 11:45 12:00 Temperature Pulse Rate 102 H 100 H 105 H Pulse Rate [ From Monitor] Respiratory Rate Respiratory Rate [ Generalized] Blood Pressure 110/56 120/54 120/54 O2 Sat by Pulse 99 Oximetry O2 Sat by Pulse Oximetry [ Anterior Bilateral Throughout] O2 Sat by Pulse Oximetry [ Assessment] 11/11/16 12:05 Temperature Pulse Rate 101 H Pulse Rate [ From Monitor] Respiratory Rate Respiratory Rate [ Generalized] Blood Pressure 118/50 O2 Sat by Pulse Oximetry O2 Sat by Pulse Oximetry [ Anterior Bilateral Throughout] O2 Sat by Pulse Oximetry [ Assessment] Constitutional: no acute distress, other (lethargic to encephalopathic) Eyes: non-icteric ENT: oropharynx moist Neck: supple, no lymphadenopathy Effort: mildly labored Ascultation: Bilateral: diminished breath sounds, rales Cardiovascular: irregular rhythm Gastrointestinal: normoactive bowel sounds, soft, non-tender, non-distended Integumentary: normal Extremities: no cyanosis, pulses normal, no ischemia or petechiae, edema Neurologic: non-focal exam (grossly), pupils equal and round, unable to assess Psychiatric: other (unable to assess) CBC and BMP: 11/11/16 08:30 11/11/16 08:30 ABG, PT/INR, D-dimer: ABG POC ABG pH 7.398 (7.35-7.45) 11/08/16 12:53 POC ABG pCO2 52.3 (35-45) H 11/08/16 12:53 POC ABG pO2 80 (80-105) 11/08/16 12:53 POC ABG HCO3 32.2 11/08/16 12:53 POC ABG Total CO2 34 11/08/16 12:53 POC ABG O2 Sat 95 11/08/16 12:53 PT/INR, D-dimer PT 20.3 Sec. (12.2-14.9) H 11/04/16 05:40 INR 1.74 (0.87-1.13) H 11/04/16 05:40 Abnormal lab findings: Abnormal Labs 10/13/16 10/13/16 10/13/16 14:50 21:40 22:05 WBC RBC Hgb Hct MCV MCHC RDW Plt Count Seg Neuts % (Manual) Lymphocytes % (Manual) Nucleated RBC % Seg Neutrophils # Man Lymphocytes # (Manual) Haptoglobin PT INR Fibrinogen Lupus Anticoagulant LA PTT Baseline POC ABG pH POC ABG pCO2 POC ABG pO2 Sodium Potassium Chloride Carbon Dioxide BUN Creatinine Glucose POC Glucose 52 L 43 L Lactic Acid Uric Acid Calcium Phosphorus Iron TIBC Erythropoietin Ferritin Total Bilirubin Direct Bilirubin AST ALT Alkaline Phosphatase Lactate Dehydrogenase C-Reactive Protein Serum Total Protein 5.6 L Total Protein Albumin 2.2 L Pluyf-3-Gvgruvewf 0.5 H Abnorm Protein Band 1 1.4 H PEP Interpretation see below H Crossmatch 10/13/16 10/14/16 10/14/16 23:18 03:00 03:00 WBC RBC Hgb Hct MCV MCHC RDW Plt Count Seg Neuts % (Manual) Lymphocytes % (Manual) Nucleated RBC % Seg Neutrophils # Man Lymphocytes # (Manual) Haptoglobin PT INR Fibrinogen Lupus Anticoagulant see below H LA PTT Baseline 55 H POC ABG pH POC ABG pCO2 POC ABG pO2 Sodium Potassium Chloride Carbon Dioxide BUN Creatinine Glucose POC Glucose 113 H Lactic Acid Uric Acid Calcium Phosphorus Iron TIBC Erythropoietin Ferritin Total Bilirubin Direct Bilirubin AST ALT Alkaline Phosphatase Lactate Dehydrogenase 406 H C-Reactive Protein Serum Total Protein Total Protein Albumin Hzkaw-9-Cbdknwamw Abnorm Protein Band 1 PEP Interpretation Crossmatch 10/14/16 10/14/16 10/14/16 03:00 03:00 04:34 WBC 1.3 L* RBC 2.33 L Hgb 7.3 L Hct 21.7 L MCV MCHC RDW 19.8 H Plt Count 99 L Seg Neuts % (Manual) Lymphocytes % (Manual) 3.0 L Nucleated RBC % Seg Neutrophils # Man 0.9 L Lymphocytes # (Manual) 0.0 L Haptoglobin PT INR Fibrinogen Lupus Anticoagulant LA PTT Baseline POC ABG pH POC ABG pCO2 POC ABG pO2 Sodium Potassium Chloride Carbon Dioxide 18 L BUN 73 H Creatinine 9.8 H Glucose 59 L POC Glucose Lactic Acid Uric Acid 8.0 H Calcium 8.2 L Phosphorus 6.60 H Iron 13 L TIBC 160 L Erythropoietin Ferritin Total Bilirubin Direct Bilirubin AST ALT Alkaline Phosphatase Lactate Dehydrogenase C-Reactive Protein Serum Total Protein Total Protein Albumin Wytiq-8-Djxqccuum Abnorm Protein Band 1 PEP Interpretation Crossmatch 10/14/16 10/14/16 10/14/16 05:27 06:29 07:34 WBC RBC Hgb Hct MCV MCHC RDW Plt Count Seg Neuts % (Manual) Lymphocytes % (Manual) Nucleated RBC % Seg Neutrophils # Man Lymphocytes # (Manual) Haptoglobin PT INR Fibrinogen Lupus Anticoagulant LA PTT Baseline POC ABG pH POC ABG pCO2 POC ABG pO2 Sodium Potassium Chloride Carbon Dioxide BUN Creatinine Glucose POC Glucose < 40 L 63 L < 40 L Lactic Acid Uric Acid Calcium Phosphorus Iron TIBC Erythropoietin Ferritin Total Bilirubin Direct Bilirubin AST ALT Alkaline Phosphatase Lactate Dehydrogenase C-Reactive Protein Serum Total Protein Total Protein Albumin Tkmaw-2-Pqoflmodf Abnorm Protein Band 1 PEP Interpretation Crossmatch 10/14/16 10/14/16 10/14/16 09:58 09:58 09:58 WBC RBC Hgb Hct MCV MCHC RDW Plt Count Seg Neuts % (Manual) Lymphocytes % (Manual) Nucleated RBC % Seg Neutrophils # Man Lymphocytes # (Manual) Haptoglobin 218 H PT INR Fibrinogen 557 H Lupus Anticoagulant LA PTT Baseline POC ABG pH POC ABG pCO2 POC ABG pO2 Sodium Potassium Chloride Carbon Dioxide BUN Creatinine Glucose POC Glucose Lactic Acid Uric Acid Calcium Phosphorus Iron TIBC Erythropoietin Ferritin Total Bilirubin 1.30 H Direct Bilirubin 1.1 H AST ALT Alkaline Phosphatase Lactate Dehydrogenase C-Reactive Protein Serum Total Protein Total Protein Albumin Yvtmr-2-Zecwicgxy Abnorm Protein Band 1 PEP Interpretation Crossmatch 10/14/16 10/14/16 10/14/16 10:57 11:15 12:52 WBC RBC Hgb Hct MCV MCHC RDW Plt Count Seg Neuts % (Manual) Lymphocytes % (Manual) Nucleated RBC % Seg Neutrophils # Man Lymphocytes # (Manual) Haptoglobin PT INR Fibrinogen Lupus Anticoagulant LA PTT Baseline POC ABG pH POC ABG pCO2 POC ABG pO2 Sodium Potassium Chloride Carbon Dioxide BUN Creatinine Glucose POC Glucose < 40 L < 40 L Lactic Acid 9.60 H* Uric Acid Calcium Phosphorus Iron TIBC Erythropoietin Ferritin Total Bilirubin Direct Bilirubin AST ALT Alkaline Phosphatase Lactate Dehydrogenase C-Reactive Protein Serum Total Protein Total Protein Albumin Wbrvo-1-Zvzyopvcm Abnorm Protein Band 1 PEP Interpretation Crossmatch 10/14/16 10/14/16 10/14/16 12:52 13:17 14:12 WBC RBC Hgb Hct MCV MCHC RDW Plt Count Seg Neuts % (Manual) Lymphocytes % (Manual) Nucleated RBC % Seg Neutrophils # Man Lymphocytes # (Manual) Haptoglobin PT INR Fibrinogen Lupus Anticoagulant LA PTT Baseline POC ABG pH POC ABG pCO2 POC ABG pO2 Sodium Potassium Chloride Carbon Dioxide BUN Creatinine Glucose POC Glucose < 40 L < 40 L Lactic Acid Uric Acid Calcium Phosphorus Iron TIBC Erythropoietin Ferritin Total Bilirubin Direct Bilirubin AST ALT Alkaline Phosphatase Lactate Dehydrogenase C-Reactive Protein 40.40 H Serum Total Protein Total Protein Albumin Udhel-5-Okrjebkfh Abnorm Protein Band 1 PEP Interpretation Crossmatch 10/14/16 10/14/16 10/14/16 15:02 15:33 15:33 WBC RBC Hgb Hct MCV MCHC RDW Plt Count Seg Neuts % (Manual) Lymphocytes % (Manual) Nucleated RBC % Seg Neutrophils # Man Lymphocytes # (Manual) Haptoglobin PT INR Fibrinogen Lupus Anticoagulant LA PTT Baseline POC ABG pH POC ABG pCO2 POC ABG pO2 Sodium Potassium Chloride Carbon Dioxide BUN Creatinine Glucose 19 L* POC Glucose < 40 L Lactic Acid 11.60 H* Uric Acid Calcium Phosphorus Iron TIBC Erythropoietin Ferritin Total Bilirubin Direct Bilirubin AST ALT Alkaline Phosphatase Lactate Dehydrogenase C-Reactive Protein Serum Total Protein Total Protein Albumin Idkak-7-Fezgmobpt Abnorm Protein Band 1 PEP Interpretation Crossmatch 10/14/16 10/14/16 10/14/16 17:14 18:03 21:25 WBC RBC Hgb Hct MCV MCHC RDW Plt Count Seg Neuts % (Manual) Lymphocytes % (Manual) Nucleated RBC % Seg Neutrophils # Man Lymphocytes # (Manual) Haptoglobin PT 28.9 H INR 2.71 H Fibrinogen Lupus Anticoagulant LA PTT Baseline POC ABG pH POC ABG pCO2 POC ABG pO2 Sodium Potassium Chloride Carbon Dioxide BUN Creatinine Glucose POC Glucose < 40 L 57 L Lactic Acid Uric Acid Calcium Phosphorus Iron TIBC Erythropoietin Ferritin Total Bilirubin Direct Bilirubin AST ALT Alkaline Phosphatase Lactate Dehydrogenase C-Reactive Protein Serum Total Protein Total Protein Albumin Qoeaw-7-Xchsoskrh Abnorm Protein Band 1 PEP Interpretation Crossmatch 10/15/16 10/15/16 10/15/16 05:32 05:35 05:35 WBC RBC 2.62 L Hgb 8.1 L Hct 25.8 L MCV 98 H D MCHC 31 L RDW 21.2 H Plt Count 61 L Seg Neuts % (Manual) 27.0 L Lymphocytes % (Manual) 10.0 L Nucleated RBC % 2.0 H Seg Neutrophils # Man Lymphocytes # (Manual) 0.8 L Haptoglobin PT INR Fibrinogen Lupus Anticoagulant LA PTT Baseline POC ABG pH POC ABG pCO2 POC ABG pO2 Sodium Potassium Chloride Carbon Dioxide BUN Creatinine Glucose POC Glucose < 40 L Lactic Acid Uric Acid Calcium Phosphorus Iron TIBC Erythropoietin Ferritin Total Bilirubin Direct Bilirubin AST ALT Alkaline Phosphatase Lactate Dehydrogenase 3871 H C-Reactive Protein Serum Total Protein Total Protein Albumin Cwghv-3-Vlmqwclkz Abnorm Protein Band 1 PEP Interpretation Crossmatch 10/15/16 10/15/16 10/15/16 05:35 05:35 05:35 WBC RBC Hgb Hct MCV MCHC RDW Plt Count Seg Neuts % (Manual) Lymphocytes % (Manual) Nucleated RBC % Seg Neutrophils # Man Lymphocytes # (Manual) Haptoglobin PT INR Fibrinogen Lupus Anticoagulant LA PTT Baseline POC ABG pH POC ABG pCO2 POC ABG pO2 Sodium 136 L Potassium 5.3 H D Chloride 91.4 L Carbon Dioxide 6 L* D BUN 57 H Creatinine 7.1 H Glucose 11 L* POC Glucose Lactic Acid 13.60 H* Uric Acid Calcium 7.7 L Phosphorus 10.10 H D Iron TIBC 166 L Erythropoietin Ferritin 9562.0 H Total Bilirubin Direct Bilirubin AST ALT Alkaline Phosphatase Lactate Dehydrogenase C-Reactive Protein Serum Total Protein Total Protein Albumin Heoda-9-Emhyshwpw Abnorm Protein Band 1 PEP Interpretation Crossmatch 10/15/16 10/15/16 10/15/16 05:51 06:22 06:52 WBC RBC Hgb Hct MCV MCHC RDW Plt Count Seg Neuts % (Manual) Lymphocytes % (Manual) Nucleated RBC % Seg Neutrophils # Man Lymphocytes # (Manual) Haptoglobin PT INR Fibrinogen Lupus Anticoagulant LA PTT Baseline POC ABG pH 7.189 L POC ABG pCO2 28.9 L POC ABG pO2 Sodium Potassium Chloride Carbon Dioxide BUN Creatinine Glucose POC Glucose 59 L 111 H Lactic Acid Uric Acid Calcium Phosphorus Iron TIBC Erythropoietin Ferritin Total Bilirubin Direct Bilirubin AST ALT Alkaline Phosphatase Lactate Dehydrogenase C-Reactive Protein Serum Total Protein Total Protein Albumin Ivxhx-7-Nwbxwajnw Abnorm Protein Band 1 PEP Interpretation Crossmatch 10/15/16 10/15/16 10/15/16 08:00 09:57 11:42 WBC RBC Hgb Hct MCV MCHC RDW Plt Count Seg Neuts % (Manual) Lymphocytes % (Manual) Nucleated RBC % Seg Neutrophils # Man Lymphocytes # (Manual) Haptoglobin PT INR Fibrinogen Lupus Anticoagulant LA PTT Baseline POC ABG pH POC ABG pCO2 POC ABG pO2 Sodium Potassium Chloride Carbon Dioxide BUN Creatinine Glucose POC Glucose 63 L 143 H 203 H Lactic Acid Uric Acid Calcium Phosphorus Iron TIBC Erythropoietin Ferritin Total Bilirubin Direct Bilirubin AST ALT Alkaline Phosphatase Lactate Dehydrogenase C-Reactive Protein Serum Total Protein Total Protein Albumin Dujak-9-Ciiriuxcm Abnorm Protein Band 1 PEP Interpretation Crossmatch 10/15/16 10/15/16 10/15/16 12:00 12:00 13:00 WBC RBC Hgb Hct MCV MCHC RDW Plt Count Seg Neuts % (Manual) Lymphocytes % (Manual) Nucleated RBC % Seg Neutrophils # Man Lymphocytes # (Manual) Haptoglobin <15 L PT INR Fibrinogen Lupus Anticoagulant LA PTT Baseline POC ABG pH POC ABG pCO2 POC ABG pO2 Sodium Potassium Chloride Carbon Dioxide BUN Creatinine Glucose POC Glucose 136 H Lactic Acid 16.30 H* Uric Acid Calcium Phosphorus Iron TIBC Erythropoietin Ferritin Total Bilirubin Direct Bilirubin AST ALT Alkaline Phosphatase Lactate Dehydrogenase C-Reactive Protein Serum Total Protein Total Protein Albumin Ixkkh-4-Tidiyogty Abnorm Protein Band 1 PEP Interpretation Crossmatch 10/15/16 10/15/16 10/15/16 14:06 15:15 16:23 WBC RBC Hgb Hct MCV MCHC RDW Plt Count Seg Neuts % (Manual) Lymphocytes % (Manual) Nucleated RBC % Seg Neutrophils # Man Lymphocytes # (Manual) Haptoglobin PT INR Fibrinogen Lupus Anticoagulant LA PTT Baseline POC ABG pH POC ABG pCO2 POC ABG pO2 Sodium Potassium Chloride Carbon Dioxide BUN Creatinine Glucose POC Glucose 132 H 64 L Lactic Acid 20.40 H* Uric Acid Calcium Phosphorus Iron TIBC Erythropoietin Ferritin Total Bilirubin Direct Bilirubin AST ALT Alkaline Phosphatase Lactate Dehydrogenase C-Reactive Protein Serum Total Protein Total Protein Albumin Endtr-8-Fskstptzb Abnorm Protein Band 1 PEP Interpretation Crossmatch 10/15/16 10/15/16 10/15/16 16:40 17:00 17:10 WBC RBC Hgb Hct MCV MCHC RDW Plt Count Seg Neuts % (Manual) Lymphocytes % (Manual) Nucleated RBC % Seg Neutrophils # Man Lymphocytes # (Manual) Haptoglobin PT INR Fibrinogen Lupus Anticoagulant LA PTT Baseline POC ABG pH 7.323 L POC ABG pCO2 25.8 L POC ABG pO2 135 H Sodium Potassium Chloride Carbon Dioxide BUN Creatinine Glucose POC Glucose 159 H Lactic Acid 20.20 H* Uric Acid Calcium Phosphorus Iron TIBC Erythropoietin Ferritin Total Bilirubin Direct Bilirubin AST ALT Alkaline Phosphatase Lactate Dehydrogenase C-Reactive Protein Serum Total Protein Total Protein Albumin Tsklz-2-Tnialtpvk Abnorm Protein Band 1 PEP Interpretation Crossmatch 10/15/16 10/15/16 10/15/16 17:46 17:53 18:45 WBC RBC Hgb Hct MCV MCHC RDW Plt Count Seg Neuts % (Manual) Lymphocytes % (Manual) Nucleated RBC % Seg Neutrophils # Man Lymphocytes # (Manual) Haptoglobin PT INR Fibrinogen Lupus Anticoagulant LA PTT Baseline POC ABG pH POC ABG pCO2 POC ABG pO2 Sodium Potassium Chloride Carbon Dioxide BUN Creatinine Glucose POC Glucose 126 H 143 H Lactic Acid 21.40 H* Uric Acid Calcium Phosphorus Iron TIBC Erythropoietin Ferritin Total Bilirubin Direct Bilirubin AST ALT Alkaline Phosphatase Lactate Dehydrogenase C-Reactive Protein Serum Total Protein Total Protein Albumin Whbba-8-Epjtgjgqx Abnorm Protein Band 1 PEP Interpretation Crossmatch 10/15/16 10/15/16 10/16/16 20:03 22:59 00:06 WBC RBC Hgb Hct MCV MCHC RDW Plt Count Seg Neuts % (Manual) Lymphocytes % (Manual) Nucleated RBC % Seg Neutrophils # Man Lymphocytes # (Manual) Haptoglobin PT INR Fibrinogen Lupus Anticoagulant LA PTT Baseline POC ABG pH POC ABG pCO2 POC ABG pO2 Sodium Potassium Chloride Carbon Dioxide BUN Creatinine Glucose POC Glucose 66 L 53 L 126 H Lactic Acid Uric Acid Calcium Phosphorus Iron TIBC Erythropoietin Ferritin Total Bilirubin Direct Bilirubin AST ALT Alkaline Phosphatase Lactate Dehydrogenase C-Reactive Protein Serum Total Protein Total Protein Albumin Zfvjt-8-Doxbpwbje Abnorm Protein Band 1 PEP Interpretation Crossmatch 10/16/16 10/16/16 10/16/16 01:03 03:55 04:00 WBC RBC Hgb Hct MCV MCHC RDW Plt Count Seg Neuts % (Manual) Lymphocytes % (Manual) Nucleated RBC % Seg Neutrophils # Man Lymphocytes # (Manual) Haptoglobin PT INR Fibrinogen Lupus Anticoagulant LA PTT Baseline POC ABG pH POC ABG pCO2 POC ABG pO2 Sodium Potassium Chloride Carbon Dioxide BUN Creatinine Glucose POC Glucose 107 H 260 H Lactic Acid 18.00 H* Uric Acid Calcium Phosphorus Iron TIBC Erythropoietin Ferritin Total Bilirubin Direct Bilirubin AST ALT Alkaline Phosphatase Lactate Dehydrogenase C-Reactive Protein Serum Total Protein Total Protein Albumin Qkfos-6-Zjmmvuadj Abnorm Protein Band 1 PEP Interpretation Crossmatch 10/16/16 10/16/16 10/16/16 04:03 07:58 08:34 WBC RBC Hgb Hct MCV MCHC RDW Plt Count Seg Neuts % (Manual) Lymphocytes % (Manual) Nucleated RBC % Seg Neutrophils # Man Lymphocytes # (Manual) Haptoglobin PT INR Fibrinogen Lupus Anticoagulant LA PTT Baseline POC ABG pH 7.527 H POC ABG pCO2 32.9 L POC ABG pO2 119 H Sodium Potassium Chloride Carbon Dioxide BUN Creatinine Glucose POC Glucose 120 H 66 L Lactic Acid Uric Acid Calcium Phosphorus Iron TIBC Erythropoietin Ferritin Total Bilirubin Direct Bilirubin AST ALT Alkaline Phosphatase Lactate Dehydrogenase C-Reactive Protein Serum Total Protein Total Protein Albumin Rjfzw-5-Fhmllsubw Abnorm Protein Band 1 PEP Interpretation Crossmatch 10/16/16 10/16/16 10/16/16 09:13 10:06 10:57 WBC RBC Hgb Hct MCV MCHC RDW Plt Count Seg Neuts % (Manual) Lymphocytes % (Manual) Nucleated RBC % Seg Neutrophils # Man Lymphocytes # (Manual) Haptoglobin PT INR Fibrinogen Lupus Anticoagulant LA PTT Baseline POC ABG pH POC ABG pCO2 POC ABG pO2 Sodium Potassium Chloride Carbon Dioxide BUN Creatinine Glucose POC Glucose 147 H 137 H 140 H Lactic Acid Uric Acid Calcium Phosphorus Iron TIBC Erythropoietin Ferritin Total Bilirubin Direct Bilirubin AST ALT Alkaline Phosphatase Lactate Dehydrogenase C-Reactive Protein Serum Total Protein Total Protein Albumin Ehsks-2-Zqkjuakew Abnorm Protein Band 1 PEP Interpretation Crossmatch 10/16/16 10/16/16 10/16/16 11:15 11:15 11:15 WBC 25.8 H RBC 2.30 L Hgb 7.0 L Hct 22.3 L MCV 97 H MCHC 31 L RDW 21.2 H Plt Count 42 L Seg Neuts % (Manual) Lymphocytes % (Manual) 3.0 L Nucleated RBC % 2.0 H Seg Neutrophils # Man 11.1 H Lymphocytes # (Manual) 0.8 L Haptoglobin PT INR Fibrinogen Lupus Anticoagulant LA PTT Baseline POC ABG pH POC ABG pCO2 POC ABG pO2 Sodium Potassium Chloride 81.7 L Carbon Dioxide 13 L D BUN 61 H Creatinine 6.2 H Glucose 171 H POC Glucose Lactic Acid 22.70 H* Uric Acid Calcium 7.1 L Phosphorus 9.10 H Iron TIBC Erythropoietin Ferritin Total Bilirubin Direct Bilirubin AST ALT Alkaline Phosphatase Lactate Dehydrogenase C-Reactive Protein Serum Total Protein Total Protein Albumin Ixras-8-Zeshlarvn Abnorm Protein Band 1 PEP Interpretation Crossmatch 10/16/16 10/16/16 10/16/16 15:10 15:50 18:11 WBC RBC Hgb Hct MCV MCHC RDW Plt Count Seg Neuts % (Manual) Lymphocytes % (Manual) Nucleated RBC % Seg Neutrophils # Man Lymphocytes # (Manual) Haptoglobin PT INR Fibrinogen Lupus Anticoagulant LA PTT Baseline POC ABG pH POC ABG pCO2 POC ABG pO2 Sodium Potassium Chloride Carbon Dioxide BUN Creatinine Glucose POC Glucose 47 L 164 H 58 L Lactic Acid Uric Acid Calcium Phosphorus Iron TIBC Erythropoietin Ferritin Total Bilirubin Direct Bilirubin AST ALT Alkaline Phosphatase Lactate Dehydrogenase C-Reactive Protein Serum Total Protein Total Protein Albumin Arnun-1-Dbfnpqhgd Abnorm Protein Band 1 PEP Interpretation Crossmatch 10/16/16 10/16/16 10/17/16 18:26 21:06 00:06 WBC RBC Hgb Hct MCV MCHC RDW Plt Count Seg Neuts % (Manual) Lymphocytes % (Manual) Nucleated RBC % Seg Neutrophils # Man Lymphocytes # (Manual) Haptoglobin PT INR Fibrinogen Lupus Anticoagulant LA PTT Baseline POC ABG pH POC ABG pCO2 POC ABG pO2 489 H Sodium Potassium Chloride Carbon Dioxide BUN Creatinine Glucose POC Glucose 52 L 120 H Lactic Acid Uric Acid Calcium Phosphorus Iron TIBC Erythropoietin Ferritin Total Bilirubin Direct Bilirubin AST ALT Alkaline Phosphatase Lactate Dehydrogenase C-Reactive Protein Serum Total Protein Total Protein Albumin Zbgjz-2-Zhvugrqgt Abnorm Protein Band 1 PEP Interpretation Crossmatch 10/17/16 10/17/16 10/17/16 04:55 04:55 05:04 WBC 25.5 H RBC 2.23 L Hgb 6.6 L Hct 21.2 L MCV 95 H MCHC 31 L RDW 20.5 H Plt Count 35 L Seg Neuts % (Manual) 79.0 H Lymphocytes % (Manual) 0 L Nucleated RBC % Seg Neutrophils # Man 20.1 H Lymphocytes # (Manual) 0.0 L Haptoglobin PT INR Fibrinogen Lupus Anticoagulant LA PTT Baseline POC ABG pH POC ABG pCO2 27.2 L POC ABG pO2 162 H Sodium Potassium Chloride 91.5 L Carbon Dioxide 16 L BUN 45 H Creatinine 4.5 H Glucose 103 H POC Glucose Lactic Acid Uric Acid Calcium 6.9 L Phosphorus 5.80 H D Iron TIBC Erythropoietin Ferritin Total Bilirubin Direct Bilirubin AST ALT Alkaline Phosphatase Lactate Dehydrogenase C-Reactive Protein Serum Total Protein Total Protein Albumin Kaabk-9-Ssemeozty Abnorm Protein Band 1 PEP Interpretation Crossmatch 10/17/16 10/17/16 10/17/16 07:59 09:04 10:04 WBC RBC Hgb Hct MCV MCHC RDW Plt Count Seg Neuts % (Manual) Lymphocytes % (Manual) Nucleated RBC % Seg Neutrophils # Man Lymphocytes # (Manual) Haptoglobin PT INR Fibrinogen Lupus Anticoagulant LA PTT Baseline POC ABG pH POC ABG pCO2 POC ABG pO2 Sodium Potassium Chloride Carbon Dioxide BUN Creatinine Glucose POC Glucose 65 L 118 H Lactic Acid Uric Acid Calcium Phosphorus Iron TIBC Erythropoietin Ferritin Total Bilirubin Direct Bilirubin AST ALT Alkaline Phosphatase Lactate Dehydrogenase C-Reactive Protein Serum Total Protein Total Protein Albumin Cfbqr-2-Isgdvwjrc Abnorm Protein Band 1 PEP Interpretation Crossmatch See Detail 10/17/16 10/17/16 10/17/16 11:52 13:08 15:42 WBC RBC Hgb Hct MCV MCHC RDW Plt Count Seg Neuts % (Manual) Lymphocytes % (Manual) Nucleated RBC % Seg Neutrophils # Man Lymphocytes # (Manual) Haptoglobin PT INR Fibrinogen Lupus Anticoagulant LA PTT Baseline POC ABG pH POC ABG pCO2 POC ABG pO2 Sodium Potassium Chloride Carbon Dioxide BUN Creatinine Glucose POC Glucose 125 H 106 H 55 L Lactic Acid Uric Acid Calcium Phosphorus Iron TIBC Erythropoietin Ferritin Total Bilirubin Direct Bilirubin AST ALT Alkaline Phosphatase Lactate Dehydrogenase C-Reactive Protein Serum Total Protein Total Protein Albumin Alyom-7-Zpgpbpcjn Abnorm Protein Band 1 PEP Interpretation Crossmatch 10/17/16 10/17/16 10/17/16 17:39 20:37 21:02 WBC RBC Hgb Hct MCV MCHC RDW Plt Count Seg Neuts % (Manual) Lymphocytes % (Manual) Nucleated RBC % Seg Neutrophils # Man Lymphocytes # (Manual) Haptoglobin PT INR Fibrinogen Lupus Anticoagulant LA PTT Baseline POC ABG pH POC ABG pCO2 28.2 L POC ABG pO2 Sodium Potassium Chloride Carbon Dioxide BUN Creatinine Glucose POC Glucose < 40 L 106 H Lactic Acid Uric Acid Calcium Phosphorus Iron TIBC Erythropoietin Ferritin Total Bilirubin Direct Bilirubin AST ALT Alkaline Phosphatase Lactate Dehydrogenase C-Reactive Protein Serum Total Protein Total Protein Albumin Kdfho-7-Vsaqrpnaq Abnorm Protein Band 1 PEP Interpretation Crossmatch 10/17/16 10/17/16 10/18/16 22:18 23:14 00:28 WBC RBC Hgb Hct MCV MCHC RDW Plt Count Seg Neuts % (Manual) Lymphocytes % (Manual) Nucleated RBC % Seg Neutrophils # Man Lymphocytes # (Manual) Haptoglobin PT INR Fibrinogen Lupus Anticoagulant LA PTT Baseline POC ABG pH POC ABG pCO2 POC ABG pO2 Sodium Potassium Chloride Carbon Dioxide BUN Creatinine Glucose POC Glucose 111 H 118 H 112 H Lactic Acid Uric Acid Calcium Phosphorus Iron TIBC Erythropoietin Ferritin Total Bilirubin Direct Bilirubin AST ALT Alkaline Phosphatase Lactate Dehydrogenase C-Reactive Protein Serum Total Protein Total Protein Albumin Xbaah-7-Xkclscqnu Abnorm Protein Band 1 PEP Interpretation Crossmatch 10/18/16 10/18/16 10/18/16 05:00 05:00 05:15 WBC 27.3 H RBC 2.75 L Hgb 7.9 L Hct 25.3 L MCV MCHC 31 L RDW 20.7 H Plt Count 31 L Seg Neuts % (Manual) 87.0 H Lymphocytes % (Manual) 1.0 L Nucleated RBC % 1.0 H Seg Neutrophils # Man 23.8 H Lymphocytes # (Manual) 0.3 L Haptoglobin PT INR Fibrinogen Lupus Anticoagulant LA PTT Baseline POC ABG pH 7.466 H POC ABG pCO2 25.1 L POC ABG pO2 Sodium Potassium Chloride 88.7 L Carbon Dioxide 18 L BUN 66 H Creatinine 4.7 H Glucose POC Glucose Lactic Acid Uric Acid Calcium 6.1 L Phosphorus 7.30 H D Iron TIBC Erythropoietin Ferritin Total Bilirubin Direct Bilirubin AST ALT Alkaline Phosphatase Lactate Dehydrogenase C-Reactive Protein Serum Total Protein Total Protein Albumin Ktjlw-1-Hwxufqedj Abnorm Protein Band 1 PEP Interpretation Crossmatch 10/18/16 10/18/16 10/18/16 07:15 07:44 09:07 WBC RBC Hgb Hct MCV MCHC RDW Plt Count Seg Neuts % (Manual) Lymphocytes % (Manual) Nucleated RBC % Seg Neutrophils # Man Lymphocytes # (Manual) Haptoglobin PT INR Fibrinogen Lupus Anticoagulant LA PTT Baseline POC ABG pH POC ABG pCO2 POC ABG pO2 Sodium Potassium Chloride Carbon Dioxide BUN Creatinine Glucose POC Glucose 64 L 156 H 117 H Lactic Acid Uric Acid Calcium Phosphorus Iron TIBC Erythropoietin Ferritin Total Bilirubin Direct Bilirubin AST ALT Alkaline Phosphatase Lactate Dehydrogenase C-Reactive Protein Serum Total Protein Total Protein Albumin Ayblz-7-Lhxshasqn Abnorm Protein Band 1 PEP Interpretation Crossmatch 10/18/16 10/18/16 10/18/16 09:15 14:00 18:21 WBC RBC Hgb Hct MCV MCHC RDW Plt Count Seg Neuts % (Manual) Lymphocytes % (Manual) Nucleated RBC % Seg Neutrophils # Man Lymphocytes # (Manual) Haptoglobin PT INR Fibrinogen Lupus Anticoagulant LA PTT Baseline POC ABG pH POC ABG pCO2 POC ABG pO2 Sodium Potassium Chloride Carbon Dioxide BUN Creatinine Glucose POC Glucose 106 H 112 H Lactic Acid 14.30 H* Uric Acid Calcium Phosphorus Iron TIBC Erythropoietin Ferritin Total Bilirubin Direct Bilirubin AST ALT Alkaline Phosphatase Lactate Dehydrogenase C-Reactive Protein Serum Total Protein Total Protein Albumin Lhquq-9-Tfuvemijs Abnorm Protein Band 1 PEP Interpretation Crossmatch 10/18/16 10/18/16 10/18/16 19:58 20:55 22:11 WBC RBC Hgb Hct MCV MCHC RDW Plt Count Seg Neuts % (Manual) Lymphocytes % (Manual) Nucleated RBC % Seg Neutrophils # Man Lymphocytes # (Manual) Haptoglobin PT INR Fibrinogen Lupus Anticoagulant LA PTT Baseline POC ABG pH POC ABG pCO2 POC ABG pO2 Sodium Potassium Chloride Carbon Dioxide BUN Creatinine Glucose POC Glucose 127 H 125 H 159 H Lactic Acid Uric Acid Calcium Phosphorus Iron TIBC Erythropoietin Ferritin Total Bilirubin Direct Bilirubin AST ALT Alkaline Phosphatase Lactate Dehydrogenase C-Reactive Protein Serum Total Protein Total Protein Albumin Yjfnf-6-Zxgtsfjnx Abnorm Protein Band 1 PEP Interpretation Crossmatch 10/18/16 10/18/16 10/19/16 23:11 23:57 01:06 WBC RBC Hgb Hct MCV MCHC RDW Plt Count Seg Neuts % (Manual) Lymphocytes % (Manual) Nucleated RBC % Seg Neutrophils # Man Lymphocytes # (Manual) Haptoglobin PT INR Fibrinogen Lupus Anticoagulant LA PTT Baseline POC ABG pH POC ABG pCO2 POC ABG pO2 Sodium Potassium Chloride Carbon Dioxide BUN Creatinine Glucose POC Glucose 122 H 137 H 162 H Lactic Acid Uric Acid Calcium Phosphorus Iron TIBC Erythropoietin Ferritin Total Bilirubin Direct Bilirubin AST ALT Alkaline Phosphatase Lactate Dehydrogenase C-Reactive Protein Serum Total Protein Total Protein Albumin Lykfl-0-Thhukldri Abnorm Protein Band 1 PEP Interpretation Crossmatch 10/19/16 10/19/16 10/19/16 01:59 03:07 04:10 WBC RBC Hgb Hct MCV MCHC RDW Plt Count Seg Neuts % (Manual) Lymphocytes % (Manual) Nucleated RBC % Seg Neutrophils # Man Lymphocytes # (Manual) Haptoglobin PT INR Fibrinogen Lupus Anticoagulant LA PTT Baseline POC ABG pH POC ABG pCO2 POC ABG pO2 Sodium Potassium Chloride Carbon Dioxide BUN Creatinine Glucose POC Glucose 154 H 178 H 186 H Lactic Acid Uric Acid Calcium Phosphorus Iron TIBC Erythropoietin Ferritin Total Bilirubin Direct Bilirubin AST ALT Alkaline Phosphatase Lactate Dehydrogenase C-Reactive Protein Serum Total Protein Total Protein Albumin Mzrld-6-Rdleuxloy Abnorm Protein Band 1 PEP Interpretation Crossmatch 10/19/16 10/19/16 10/19/16 05:14 05:15 05:47 WBC RBC Hgb Hct MCV MCHC RDW Plt Count Seg Neuts % (Manual) Lymphocytes % (Manual) Nucleated RBC % Seg Neutrophils # Man Lymphocytes # (Manual) Haptoglobin PT INR Fibrinogen Lupus Anticoagulant LA PTT Baseline POC ABG pH 7.581 H POC ABG pCO2 22.9 L POC ABG pO2 58 L Sodium Potassium Chloride Carbon Dioxide BUN Creatinine Glucose POC Glucose 197 H 204 H Lactic Acid Uric Acid Calcium Phosphorus Iron TIBC Erythropoietin Ferritin Total Bilirubin Direct Bilirubin AST ALT Alkaline Phosphatase Lactate Dehydrogenase C-Reactive Protein Serum Total Protein Total Protein Albumin Ptihj-5-Qqlihiqll Abnorm Protein Band 1 PEP Interpretation Crossmatch 10/19/16 10/19/16 10/19/16 06:00 06:00 07:51 WBC 23.0 H RBC 2.54 L Hgb 7.5 L Hct 23.0 L MCV MCHC RDW 20.7 H Plt Count 25 L Seg Neuts % (Manual) 91.0 H Lymphocytes % (Manual) 2.0 L Nucleated RBC % 1.0 H Seg Neutrophils # Man 20.9 H Lymphocytes # (Manual) 0.5 L Haptoglobin PT INR Fibrinogen Lupus Anticoagulant LA PTT Baseline POC ABG pH POC ABG pCO2 POC ABG pO2 Sodium Potassium Chloride 88.7 L Carbon Dioxide 21 L BUN 70 H Creatinine 3.9 H Glucose 189 H POC Glucose 145 H Lactic Acid Uric Acid Calcium 5.6 L* Phosphorus 6.30 H Iron TIBC Erythropoietin Ferritin Total Bilirubin Direct Bilirubin AST ALT Alkaline Phosphatase Lactate Dehydrogenase C-Reactive Protein Serum Total Protein Total Protein Albumin Bxzds-6-Ujdaoyjwm Abnorm Protein Band 1 PEP Interpretation Crossmatch 10/19/16 10/19/16 10/19/16 09:14 10:01 12:14 WBC RBC Hgb Hct MCV MCHC RDW Plt Count Seg Neuts % (Manual) Lymphocytes % (Manual) Nucleated RBC % Seg Neutrophils # Man Lymphocytes # (Manual) Haptoglobin PT INR Fibrinogen Lupus Anticoagulant LA PTT Baseline POC ABG pH POC ABG pCO2 POC ABG pO2 Sodium Potassium Chloride Carbon Dioxide BUN Creatinine Glucose POC Glucose 173 H 153 H 180 H Lactic Acid Uric Acid Calcium Phosphorus Iron TIBC Erythropoietin Ferritin Total Bilirubin Direct Bilirubin AST ALT Alkaline Phosphatase Lactate Dehydrogenase C-Reactive Protein Serum Total Protein Total Protein Albumin Ksnxv-7-Sqysajssd Abnorm Protein Band 1 PEP Interpretation Crossmatch 10/19/16 10/19/16 10/19/16 14:15 16:38 20:27 WBC RBC Hgb Hct MCV MCHC RDW Plt Count Seg Neuts % (Manual) Lymphocytes % (Manual) Nucleated RBC % Seg Neutrophils # Man Lymphocytes # (Manual) Haptoglobin PT INR Fibrinogen Lupus Anticoagulant LA PTT Baseline POC ABG pH POC ABG pCO2 POC ABG pO2 Sodium Potassium Chloride Carbon Dioxide BUN Creatinine Glucose POC Glucose 194 H 202 H Lactic Acid Uric Acid Calcium Phosphorus Iron TIBC Erythropoietin 148.2 H Ferritin Total Bilirubin Direct Bilirubin AST ALT Alkaline Phosphatase Lactate Dehydrogenase C-Reactive Protein Serum Total Protein Total Protein Albumin Gvfny-3-Vlpjjcsjn Abnorm Protein Band 1 PEP Interpretation Crossmatch 10/19/16 10/20/16 10/20/16 23:27 04:06 05:00 WBC RBC Hgb Hct MCV MCHC RDW Plt Count Seg Neuts % (Manual) Lymphocytes % (Manual) Nucleated RBC % Seg Neutrophils # Man Lymphocytes # (Manual) Haptoglobin PT INR Fibrinogen Lupus Anticoagulant LA PTT Baseline POC ABG pH POC ABG pCO2 POC ABG pO2 Sodium Potassium Chloride 88.8 L Carbon Dioxide BUN 93 H Creatinine 4.3 H Glucose 204 H POC Glucose 201 H 200 H Lactic Acid Uric Acid Calcium 5.2 L* Phosphorus Iron TIBC Erythropoietin Ferritin Total Bilirubin Direct Bilirubin AST ALT Alkaline Phosphatase Lactate Dehydrogenase C-Reactive Protein Serum Total Protein Total Protein Albumin Wipti-7-Egbqcgxtf Abnorm Protein Band 1 PEP Interpretation Crossmatch 10/20/16 10/20/16 10/20/16 05:16 06:00 07:43 WBC 24.8 H RBC 2.52 L Hgb 7.4 L Hct 22.9 L MCV MCHC RDW 19.9 H Plt Count 23 L Seg Neuts % (Manual) 97.0 H Lymphocytes % (Manual) 1.0 L Nucleated RBC % 9.0 H Seg Neutrophils # Man 24.1 H Lymphocytes # (Manual) 0.2 L Haptoglobin PT INR Fibrinogen Lupus Anticoagulant LA PTT Baseline POC ABG pH 7.463 H POC ABG pCO2 POC ABG pO2 157 H Sodium Potassium Chloride Carbon Dioxide BUN Creatinine Glucose POC Glucose 192 H Lactic Acid Uric Acid Calcium Phosphorus Iron TIBC Erythropoietin Ferritin Total Bilirubin Direct Bilirubin AST ALT Alkaline Phosphatase Lactate Dehydrogenase C-Reactive Protein Serum Total Protein Total Protein Albumin Fbxxr-2-Aasysdlzw Abnorm Protein Band 1 PEP Interpretation Crossmatch 10/20/16 10/20/16 10/20/16 12:11 15:32 21:23 WBC RBC Hgb Hct MCV MCHC RDW Plt Count Seg Neuts % (Manual) Lymphocytes % (Manual) Nucleated RBC % Seg Neutrophils # Man Lymphocytes # (Manual) Haptoglobin PT INR Fibrinogen Lupus Anticoagulant LA PTT Baseline POC ABG pH POC ABG pCO2 POC ABG pO2 Sodium Potassium Chloride Carbon Dioxide BUN Creatinine Glucose POC Glucose 172 H 216 H 271 H Lactic Acid Uric Acid Calcium Phosphorus Iron TIBC Erythropoietin Ferritin Total Bilirubin Direct Bilirubin AST ALT Alkaline Phosphatase Lactate Dehydrogenase C-Reactive Protein Serum Total Protein Total Protein Albumin Giwco-7-Aulzrmezg Abnorm Protein Band 1 PEP Interpretation Crossmatch 10/20/16 10/21/16 10/21/16 23:49 03:53 04:58 WBC RBC Hgb Hct MCV MCHC RDW Plt Count Seg Neuts % (Manual) Lymphocytes % (Manual) Nucleated RBC % Seg Neutrophils # Man Lymphocytes # (Manual) Haptoglobin PT INR Fibrinogen Lupus Anticoagulant LA PTT Baseline POC ABG pH 7.459 H POC ABG pCO2 POC ABG pO2 113 H Sodium 136 L Potassium 2.8 L* D Chloride 91.6 L Carbon Dioxide BUN 62 H Creatinine 2.8 H Glucose 236 H POC Glucose 317 H Lactic Acid Uric Acid Calcium 6.2 L D Phosphorus Iron TIBC Erythropoietin Ferritin Total Bilirubin 2.70 H Direct Bilirubin AST 73 H ALT 57 H Alkaline Phosphatase 158 H Lactate Dehydrogenase C-Reactive Protein Serum Total Protein Total Protein 4.9 L Albumin 2.6 L Fambp-1-Jfspwzprz Abnorm Protein Band 1 PEP Interpretation Crossmatch 10/21/16 10/21/16 10/21/16 05:25 07:11 10:30 WBC 28.1 H RBC 2.36 L Hgb 7.0 L Hct 21.6 L MCV MCHC RDW 20.0 H Plt Count 14 L* Seg Neuts % (Manual) 92.0 H Lymphocytes % (Manual) 0 L Nucleated RBC % 5.0 H Seg Neutrophils # Man 25.9 H Lymphocytes # (Manual) 0.0 L Haptoglobin PT INR Fibrinogen Lupus Anticoagulant LA PTT Baseline POC ABG pH POC ABG pCO2 POC ABG pO2 Sodium Potassium Chloride Carbon Dioxide BUN Creatinine Glucose POC Glucose 237 H 206 H Lactic Acid Uric Acid Calcium Phosphorus Iron TIBC Erythropoietin Ferritin Total Bilirubin Direct Bilirubin AST ALT Alkaline Phosphatase Lactate Dehydrogenase C-Reactive Protein Serum Total Protein Total Protein Albumin Omkgw-1-Emzkmcvpy Abnorm Protein Band 1 PEP Interpretation Crossmatch 10/21/16 10/21/16 10/21/16 11:25 12:31 16:33 WBC RBC Hgb Hct MCV MCHC RDW Plt Count Seg Neuts % (Manual) Lymphocytes % (Manual) Nucleated RBC % Seg Neutrophils # Man Lymphocytes # (Manual) Haptoglobin PT 49.1 H INR 5.28 H* Fibrinogen Lupus Anticoagulant LA PTT Baseline POC ABG pH POC ABG pCO2 POC ABG pO2 Sodium Potassium Chloride Carbon Dioxide BUN Creatinine Glucose POC Glucose 145 H 151 H Lactic Acid Uric Acid Calcium Phosphorus Iron TIBC Erythropoietin Ferritin Total Bilirubin Direct Bilirubin AST ALT Alkaline Phosphatase Lactate Dehydrogenase C-Reactive Protein Serum Total Protein Total Protein Albumin Lbxdq-1-Qvjjpbene Abnorm Protein Band 1 PEP Interpretation Crossmatch 10/21/16 10/22/16 10/22/16 19:53 00:00 05:23 WBC RBC Hgb Hct MCV MCHC RDW Plt Count Seg Neuts % (Manual) Lymphocytes % (Manual) Nucleated RBC % Seg Neutrophils # Man Lymphocytes # (Manual) Haptoglobin PT INR Fibrinogen Lupus Anticoagulant LA PTT Baseline POC ABG pH POC ABG pCO2 POC ABG pO2 Sodium Potassium Chloride Carbon Dioxide BUN Creatinine Glucose POC Glucose 170 H 168 H 131 H Lactic Acid Uric Acid Calcium Phosphorus Iron TIBC Erythropoietin Ferritin Total Bilirubin Direct Bilirubin AST ALT Alkaline Phosphatase Lactate Dehydrogenase C-Reactive Protein Serum Total Protein Total Protein Albumin Qwgpc-5-Wbbwsaqow Abnorm Protein Band 1 PEP Interpretation Crossmatch 10/22/16 10/22/16 10/22/16 05:25 05:35 13:03 WBC RBC Hgb Hct MCV MCHC RDW Plt Count Seg Neuts % (Manual) Lymphocytes % (Manual) Nucleated RBC % Seg Neutrophils # Man Lymphocytes # (Manual) Haptoglobin PT INR Fibrinogen Lupus Anticoagulant LA PTT Baseline POC ABG pH 7.462 H POC ABG pCO2 POC ABG pO2 Sodium 135 L Potassium 3.0 L Chloride 88.5 L Carbon Dioxide BUN 84 H Creatinine 3.4 H Glucose 124 H POC Glucose 164 H Lactic Acid Uric Acid Calcium 5.9 L* Phosphorus Iron TIBC Erythropoietin Ferritin Total Bilirubin 2.00 H Direct Bilirubin AST 85 H ALT Alkaline Phosphatase 199 H Lactate Dehydrogenase C-Reactive Protein Serum Total Protein Total Protein 5.0 L Albumin 2.5 L Jqdrk-2-Asuwttjjp Abnorm Protein Band 1 PEP Interpretation Crossmatch 10/22/16 10/22/16 10/23/16 17:14 23:16 04:47 WBC RBC Hgb Hct MCV MCHC RDW Plt Count Seg Neuts % (Manual) Lymphocytes % (Manual) Nucleated RBC % Seg Neutrophils # Man Lymphocytes # (Manual) Haptoglobin PT INR Fibrinogen Lupus Anticoagulant LA PTT Baseline POC ABG pH 7.476 H POC ABG pCO2 POC ABG pO2 108 H Sodium Potassium Chloride Carbon Dioxide BUN Creatinine Glucose POC Glucose 188 H 167 H Lactic Acid Uric Acid Calcium Phosphorus Iron TIBC Erythropoietin Ferritin Total Bilirubin Direct Bilirubin AST ALT Alkaline Phosphatase Lactate Dehydrogenase C-Reactive Protein Serum Total Protein Total Protein Albumin Ptypt-9-Zetwahocg Abnorm Protein Band 1 PEP Interpretation Crossmatch 10/23/16 10/23/16 10/23/16 05:49 07:00 07:12 WBC 24.2 H RBC 2.27 L Hgb 7.0 L Hct 21.1 L MCV MCHC RDW 19.7 H Plt Count 35 L D Seg Neuts % (Manual) Lymphocytes % (Manual) Nucleated RBC % Seg Neutrophils # Man Lymphocytes # (Manual) Haptoglobin PT INR Fibrinogen Lupus Anticoagulant LA PTT Baseline POC ABG pH POC ABG pCO2 POC ABG pO2 Sodium Potassium 3.5 L Chloride 95.7 L Carbon Dioxide BUN 55 H Creatinine 2.7 H Glucose 103 H POC Glucose 106 H Lactic Acid Uric Acid Calcium 7.1 L D Phosphorus Iron TIBC Erythropoietin Ferritin Total Bilirubin Direct Bilirubin AST ALT Alkaline Phosphatase Lactate Dehydrogenase C-Reactive Protein Serum Total Protein Total Protein Albumin Hcyes-5-Folumrfah Abnorm Protein Band 1 PEP Interpretation Crossmatch 10/24/16 10/24/16 10/24/16 00:12 05:16 07:00 WBC 17.9 H RBC 2.12 L Hgb 6.5 L Hct 19.9 L* MCV MCHC RDW 19.3 H Plt Count 44 L Seg Neuts % (Manual) Lymphocytes % (Manual) Nucleated RBC % Seg Neutrophils # Man Lymphocytes # (Manual) Haptoglobin PT INR Fibrinogen Lupus Anticoagulant LA PTT Baseline POC ABG pH POC ABG pCO2 POC ABG pO2 Sodium Potassium Chloride Carbon Dioxide BUN Creatinine Glucose POC Glucose 116 H 135 H Lactic Acid Uric Acid Calcium Phosphorus Iron TIBC Erythropoietin Ferritin Total Bilirubin Direct Bilirubin AST ALT Alkaline Phosphatase Lactate Dehydrogenase C-Reactive Protein Serum Total Protein Total Protein Albumin Aoavg-3-Rwnlziput Abnorm Protein Band 1 PEP Interpretation Crossmatch 10/24/16 10/24/16 10/24/16 07:00 11:45 12:12 WBC RBC Hgb Hct MCV MCHC RDW Plt Count Seg Neuts % (Manual) Lymphocytes % (Manual) Nucleated RBC % Seg Neutrophils # Man Lymphocytes # (Manual) Haptoglobin PT INR Fibrinogen Lupus Anticoagulant LA PTT Baseline POC ABG pH POC ABG pCO2 POC ABG pO2 Sodium Potassium Chloride 92.9 L Carbon Dioxide BUN 74 H Creatinine 3.3 H Glucose 136 H POC Glucose 177 H Lactic Acid Uric Acid Calcium 6.6 L Phosphorus Iron TIBC Erythropoietin Ferritin Total Bilirubin 2.10 H Direct Bilirubin AST 68 H ALT Alkaline Phosphatase 224 H Lactate Dehydrogenase C-Reactive Protein Serum Total Protein Total Protein 4.8 L Albumin 2.3 L Bftak-1-Aroyhfmng Abnorm Protein Band 1 PEP Interpretation Crossmatch See Detail 10/24/16 10/24/16 10/24/16 16:30 16:30 17:28 WBC RBC Hgb Hct MCV MCHC RDW Plt Count Seg Neuts % (Manual) Lymphocytes % (Manual) Nucleated RBC % Seg Neutrophils # Man Lymphocytes # (Manual) Haptoglobin PT INR Fibrinogen Lupus Anticoagulant LA PTT Baseline POC ABG pH POC ABG pCO2 POC ABG pO2 Sodium Potassium Chloride Carbon Dioxide BUN Creatinine Glucose POC Glucose 128 H Lactic Acid 3.00 H* Uric Acid Calcium Phosphorus Iron TIBC Erythropoietin Ferritin Total Bilirubin Direct Bilirubin AST ALT Alkaline Phosphatase Lactate Dehydrogenase C-Reactive Protein 7.40 H Serum Total Protein Total Protein Albumin Stmqy-5-Hlgovnhvy Abnorm Protein Band 1 PEP Interpretation Crossmatch 10/24/16 10/24/16 10/25/16 18:40 23:32 05:00 WBC 17.5 H RBC 2.99 L Hgb 9.1 L Hct 26.9 L D MCV MCHC RDW 17.7 H Plt Count 53 L Seg Neuts % (Manual) Lymphocytes % (Manual) Nucleated RBC % Seg Neutrophils # Man Lymphocytes # (Manual) Haptoglobin PT INR Fibrinogen Lupus Anticoagulant LA PTT Baseline POC ABG pH POC ABG pCO2 POC ABG pO2 Sodium Potassium Chloride Carbon Dioxide BUN Creatinine Glucose POC Glucose 140 H Lactic Acid 3.10 H* Uric Acid Calcium Phosphorus Iron TIBC Erythropoietin Ferritin Total Bilirubin Direct Bilirubin AST ALT Alkaline Phosphatase Lactate Dehydrogenase C-Reactive Protein Serum Total Protein Total Protein Albumin Wmpww-6-Xvavplkyh Abnorm Protein Band 1 PEP Interpretation Crossmatch 10/25/16 10/25/16 10/25/16 05:00 05:22 11:58 WBC RBC Hgb Hct MCV MCHC RDW Plt Count Seg Neuts % (Manual) Lymphocytes % (Manual) Nucleated RBC % Seg Neutrophils # Man Lymphocytes # (Manual) Haptoglobin PT INR Fibrinogen Lupus Anticoagulant LA PTT Baseline POC ABG pH POC ABG pCO2 POC ABG pO2 Sodium Potassium Chloride 91.6 L Carbon Dioxide BUN 89 H Creatinine 3.9 H Glucose 150 H POC Glucose 164 H 189 H Lactic Acid Uric Acid Calcium 6.9 L Phosphorus Iron TIBC Erythropoietin Ferritin Total Bilirubin Direct Bilirubin AST ALT Alkaline Phosphatase Lactate Dehydrogenase C-Reactive Protein Serum Total Protein Total Protein Albumin Sxdwi-7-Jpknvfdja Abnorm Protein Band 1 PEP Interpretation Crossmatch 10/25/16 10/25/16 10/26/16 17:56 23:12 04:00 WBC RBC Hgb Hct MCV MCHC RDW Plt Count Seg Neuts % (Manual) Lymphocytes % (Manual) Nucleated RBC % Seg Neutrophils # Man Lymphocytes # (Manual) Haptoglobin PT INR Fibrinogen Lupus Anticoagulant LA PTT Baseline POC ABG pH POC ABG pCO2 POC ABG pO2 Sodium 135 L Potassium Chloride 90.7 L Carbon Dioxide BUN 64 H Creatinine 2.9 H Glucose 132 H POC Glucose 156 H 133 H Lactic Acid Uric Acid Calcium 7.3 L Phosphorus Iron TIBC Erythropoietin Ferritin Total Bilirubin Direct Bilirubin AST ALT Alkaline Phosphatase Lactate Dehydrogenase C-Reactive Protein Serum Total Protein Total Protein Albumin Hkdul-9-Kmhyuwjgg Abnorm Protein Band 1 PEP Interpretation Crossmatch 10/26/16 10/26/16 10/26/16 05:14 06:15 11:51 WBC 18.6 H RBC 3.15 L Hgb 9.6 L Hct 29.0 L MCV MCHC RDW 17.8 H Plt Count 71 L Seg Neuts % (Manual) 85.0 H Lymphocytes % (Manual) 1.0 L Nucleated RBC % Seg Neutrophils # Man 15.8 H Lymphocytes # (Manual) 0.2 L Haptoglobin PT INR Fibrinogen Lupus Anticoagulant LA PTT Baseline POC ABG pH POC ABG pCO2 POC ABG pO2 Sodium Potassium Chloride Carbon Dioxide BUN Creatinine Glucose POC Glucose 130 H 139 H Lactic Acid Uric Acid Calcium Phosphorus Iron TIBC Erythropoietin Ferritin Total Bilirubin Direct Bilirubin AST ALT Alkaline Phosphatase Lactate Dehydrogenase C-Reactive Protein Serum Total Protein Total Protein Albumin Hxdac-9-Anfmuvqpy Abnorm Protein Band 1 PEP Interpretation Crossmatch 10/26/16 10/26/16 10/27/16 17:25 23:35 04:10 WBC 16.8 H RBC 3.38 L Hgb 10.1 L Hct 31.0 L MCV MCHC RDW 18.0 H Plt Count 77 L Seg Neuts % (Manual) 92.0 H Lymphocytes % (Manual) 1.0 L Nucleated RBC % 1.0 H Seg Neutrophils # Man 15.5 H Lymphocytes # (Manual) 0.2 L Haptoglobin PT INR Fibrinogen Lupus Anticoagulant LA PTT Baseline POC ABG pH POC ABG pCO2 POC ABG pO2 Sodium Potassium Chloride Carbon Dioxide BUN Creatinine Glucose POC Glucose 118 H 145 H Lactic Acid Uric Acid Calcium Phosphorus Iron TIBC Erythropoietin Ferritin Total Bilirubin Direct Bilirubin AST ALT Alkaline Phosphatase Lactate Dehydrogenase C-Reactive Protein Serum Total Protein Total Protein Albumin Yslxq-1-Xkwoylahv Abnorm Protein Band 1 PEP Interpretation Crossmatch 10/27/16 10/27/16 10/27/16 04:10 05:53 08:14 WBC RBC Hgb Hct MCV MCHC RDW Plt Count Seg Neuts % (Manual) Lymphocytes % (Manual) Nucleated RBC % Seg Neutrophils # Man Lymphocytes # (Manual) Haptoglobin PT 23.0 H INR 2.03 H Fibrinogen Lupus Anticoagulant LA PTT Baseline POC ABG pH POC ABG pCO2 POC ABG pO2 Sodium Potassium Chloride 95.5 L Carbon Dioxide BUN 63 H Creatinine 2.8 H Glucose 112 H POC Glucose 127 H Lactic Acid Uric Acid Calcium 7.5 L Phosphorus Iron TIBC Erythropoietin Ferritin Total Bilirubin Direct Bilirubin AST ALT Alkaline Phosphatase Lactate Dehydrogenase C-Reactive Protein Serum Total Protein Total Protein Albumin Axbpw-7-Tpnmuavjb Abnorm Protein Band 1 PEP Interpretation Crossmatch 10/27/16 10/27/16 10/27/16 11:56 17:47 23:55 WBC RBC Hgb Hct MCV MCHC RDW Plt Count Seg Neuts % (Manual) Lymphocytes % (Manual) Nucleated RBC % Seg Neutrophils # Man Lymphocytes # (Manual) Haptoglobin PT INR Fibrinogen Lupus Anticoagulant LA PTT Baseline POC ABG pH POC ABG pCO2 POC ABG pO2 Sodium Potassium Chloride Carbon Dioxide BUN Creatinine Glucose POC Glucose 113 H 117 H 142 H Lactic Acid Uric Acid Calcium Phosphorus Iron TIBC Erythropoietin Ferritin Total Bilirubin Direct Bilirubin AST ALT Alkaline Phosphatase Lactate Dehydrogenase C-Reactive Protein Serum Total Protein Total Protein Albumin Voggi-7-Dctyhkbac Abnorm Protein Band 1 PEP Interpretation Crossmatch 10/28/16 10/28/16 10/28/16 05:45 05:45 11:44 WBC 16.6 H RBC 3.18 L Hgb 9.5 L Hct 29.3 L MCV MCHC RDW 17.6 H Plt Count 83 L Seg Neuts % (Manual) 87.0 H Lymphocytes % (Manual) 3.0 L Nucleated RBC % Seg Neutrophils # Man 14.4 H Lymphocytes # (Manual) 0.5 L Haptoglobin PT INR Fibrinogen Lupus Anticoagulant LA PTT Baseline POC ABG pH POC ABG pCO2 POC ABG pO2 Sodium Potassium Chloride 94.6 L Carbon Dioxide 21 L BUN 90 H Creatinine 3.9 H Glucose 152 H POC Glucose 151 H Lactic Acid Uric Acid Calcium 6.9 L Phosphorus Iron TIBC Erythropoietin Ferritin Total Bilirubin Direct Bilirubin AST ALT Alkaline Phosphatase Lactate Dehydrogenase C-Reactive Protein Serum Total Protein Total Protein Albumin Vlhow-9-Jxlwgnajs Abnorm Protein Band 1 PEP Interpretation Crossmatch 10/28/16 10/28/16 10/29/16 17:31 23:47 04:53 WBC RBC Hgb Hct MCV MCHC RDW Plt Count Seg Neuts % (Manual) Lymphocytes % (Manual) Nucleated RBC % Seg Neutrophils # Man Lymphocytes # (Manual) Haptoglobin PT INR Fibrinogen Lupus Anticoagulant LA PTT Baseline POC ABG pH POC ABG pCO2 POC ABG pO2 Sodium Potassium Chloride Carbon Dioxide BUN Creatinine Glucose POC Glucose 184 H 124 H 153 H Lactic Acid Uric Acid Calcium Phosphorus Iron TIBC Erythropoietin Ferritin Total Bilirubin Direct Bilirubin AST ALT Alkaline Phosphatase Lactate Dehydrogenase C-Reactive Protein Serum Total Protein Total Protein Albumin Cbann-9-Rdaxwnxyj Abnorm Protein Band 1 PEP Interpretation Crossmatch 10/29/16 10/29/16 10/29/16 06:15 06:15 10:58 WBC 14.1 H RBC 3.15 L Hgb 9.6 L Hct 29.1 L MCV MCHC RDW 17.9 H Plt Count 73 L Seg Neuts % (Manual) 93.0 H Lymphocytes % (Manual) 4.0 L Nucleated RBC % Seg Neutrophils # Man 13.1 H Lymphocytes # (Manual) 0.6 L Haptoglobin PT INR Fibrinogen Lupus Anticoagulant LA PTT Baseline POC ABG pH POC ABG pCO2 POC ABG pO2 Sodium Potassium Chloride Carbon Dioxide BUN 58 H Creatinine 2.7 H Glucose 146 H POC Glucose 134 H Lactic Acid Uric Acid Calcium 7.4 L Phosphorus 5.00 H Iron TIBC Erythropoietin Ferritin Total Bilirubin Direct Bilirubin AST ALT Alkaline Phosphatase Lactate Dehydrogenase C-Reactive Protein Serum Total Protein Total Protein Albumin Ivwiz-8-Nkzhithzk Abnorm Protein Band 1 PEP Interpretation Crossmatch 10/29/16 10/29/16 10/30/16 17:06 23:28 05:16 WBC RBC Hgb Hct MCV MCHC RDW Plt Count Seg Neuts % (Manual) Lymphocytes % (Manual) Nucleated RBC % Seg Neutrophils # Man Lymphocytes # (Manual) Haptoglobin PT INR Fibrinogen Lupus Anticoagulant LA PTT Baseline POC ABG pH POC ABG pCO2 POC ABG pO2 Sodium Potassium Chloride Carbon Dioxide BUN Creatinine Glucose POC Glucose 158 H 133 H 147 H Lactic Acid Uric Acid Calcium Phosphorus Iron TIBC Erythropoietin Ferritin Total Bilirubin Direct Bilirubin AST ALT Alkaline Phosphatase Lactate Dehydrogenase C-Reactive Protein Serum Total Protein Total Protein Albumin Wlglz-1-Mzfjganus Abnorm Protein Band 1 PEP Interpretation Crossmatch 10/30/16 10/30/16 10/30/16 06:35 06:35 12:08 WBC 13.0 H RBC 3.08 L Hgb 9.3 L Hct 28.7 L MCV MCHC RDW 18.4 H Plt Count 73 L Seg Neuts % (Manual) Lymphocytes % (Manual) Nucleated RBC % Seg Neutrophils # Man Lymphocytes # (Manual) Haptoglobin PT INR Fibrinogen Lupus Anticoagulant LA PTT Baseline POC ABG pH POC ABG pCO2 POC ABG pO2 Sodium Potassium Chloride Carbon Dioxide BUN 86 H Creatinine 3.5 H Glucose 132 H POC Glucose 134 H Lactic Acid Uric Acid Calcium 7.1 L Phosphorus 5.90 H Iron TIBC Erythropoietin Ferritin Total Bilirubin Direct Bilirubin AST ALT Alkaline Phosphatase Lactate Dehydrogenase C-Reactive Protein Serum Total Protein Total Protein Albumin Hjaow-4-Dfkenaqzl Abnorm Protein Band 1 PEP Interpretation Crossmatch 10/30/16 10/30/16 10/31/16 18:02 23:31 05:21 WBC RBC Hgb Hct MCV MCHC RDW Plt Count Seg Neuts % (Manual) Lymphocytes % (Manual) Nucleated RBC % Seg Neutrophils # Man Lymphocytes # (Manual) Haptoglobin PT INR Fibrinogen Lupus Anticoagulant LA PTT Baseline POC ABG pH POC ABG pCO2 POC ABG pO2 Sodium Potassium Chloride Carbon Dioxide BUN Creatinine Glucose POC Glucose 142 H 152 H 152 H Lactic Acid Uric Acid Calcium Phosphorus Iron TIBC Erythropoietin Ferritin Total Bilirubin Direct Bilirubin AST ALT Alkaline Phosphatase Lactate Dehydrogenase C-Reactive Protein Serum Total Protein Total Protein Albumin Invxn-1-Smllvsdob Abnorm Protein Band 1 PEP Interpretation Crossmatch 10/31/16 10/31/16 10/31/16 06:21 06:21 12:12 WBC 11.9 H RBC 2.82 L Hgb 8.6 L Hct 26.4 L MCV MCHC RDW 17.8 H Plt Count 56 L Seg Neuts % (Manual) Lymphocytes % (Manual) 0 L Nucleated RBC % Seg Neutrophils # Man 10.9 H Lymphocytes # (Manual) 0.0 L Haptoglobin PT INR Fibrinogen Lupus Anticoagulant LA PTT Baseline POC ABG pH POC ABG pCO2 POC ABG pO2 Sodium Potassium Chloride Carbon Dioxide 21 L BUN 107 H Creatinine 4.2 H Glucose 137 H POC Glucose 142 H Lactic Acid Uric Acid Calcium 7.2 L Phosphorus 6.50 H Iron TIBC Erythropoietin Ferritin Total Bilirubin Direct Bilirubin AST ALT Alkaline Phosphatase Lactate Dehydrogenase C-Reactive Protein Serum Total Protein Total Protein Albumin Ahpzc-5-Coruzuurw Abnorm Protein Band 1 PEP Interpretation Crossmatch 10/31/16 10/31/16 11/01/16 17:34 23:46 05:15 WBC RBC Hgb Hct MCV MCHC RDW Plt Count Seg Neuts % (Manual) Lymphocytes % (Manual) Nucleated RBC % Seg Neutrophils # Man Lymphocytes # (Manual) Haptoglobin PT INR Fibrinogen Lupus Anticoagulant LA PTT Baseline POC ABG pH POC ABG pCO2 POC ABG pO2 Sodium Potassium Chloride Carbon Dioxide BUN Creatinine Glucose POC Glucose 180 H 131 H 148 H Lactic Acid Uric Acid Calcium Phosphorus Iron TIBC Erythropoietin Ferritin Total Bilirubin Direct Bilirubin AST ALT Alkaline Phosphatase Lactate Dehydrogenase C-Reactive Protein Serum Total Protein Total Protein Albumin Axybl-8-Fefymyzzu Abnorm Protein Band 1 PEP Interpretation Crossmatch 11/01/16 11/01/16 11/01/16 06:00 06:00 11:45 WBC RBC 2.66 L Hgb 8.1 L Hct 24.8 L MCV MCHC RDW 17.7 H Plt Count 47 L Seg Neuts % (Manual) 88.0 H Lymphocytes % (Manual) 0 L Nucleated RBC % Seg Neutrophils # Man Lymphocytes # (Manual) 0.0 L Haptoglobin PT INR Fibrinogen Lupus Anticoagulant LA PTT Baseline POC ABG pH POC ABG pCO2 POC ABG pO2 Sodium 134 L Potassium Chloride 95.6 L Carbon Dioxide BUN 90 H Creatinine 3.5 H Glucose 154 H POC Glucose 169 H Lactic Acid Uric Acid Calcium 7.1 L Phosphorus 5.50 H Iron TIBC Erythropoietin Ferritin Total Bilirubin Direct Bilirubin AST ALT Alkaline Phosphatase Lactate Dehydrogenase C-Reactive Protein Serum Total Protein Total Protein Albumin Enfke-2-Ofmcqqooi Abnorm Protein Band 1 PEP Interpretation Crossmatch 11/01/16 11/01/16 11/01/16 18:33 20:55 23:51 WBC RBC Hgb Hct MCV MCHC RDW Plt Count Seg Neuts % (Manual) Lymphocytes % (Manual) Nucleated RBC % Seg Neutrophils # Man Lymphocytes # (Manual) Haptoglobin PT INR Fibrinogen Lupus Anticoagulant LA PTT Baseline POC ABG pH POC ABG pCO2 POC ABG pO2 Sodium Potassium Chloride Carbon Dioxide BUN Creatinine Glucose POC Glucose 128 H 144 H Lactic Acid 3.10 H* Uric Acid Calcium Phosphorus Iron TIBC Erythropoietin Ferritin Total Bilirubin Direct Bilirubin AST ALT Alkaline Phosphatase Lactate Dehydrogenase C-Reactive Protein Serum Total Protein Total Protein Albumin Hxhla-8-Cwiyqnydb Abnorm Protein Band 1 PEP Interpretation Crossmatch 11/02/16 11/02/16 11/02/16 05:15 05:15 05:24 WBC RBC 2.69 L Hgb 8.2 L Hct 25.1 L MCV MCHC RDW 16.9 H Plt Count 42 L Seg Neuts % (Manual) 94.0 H Lymphocytes % (Manual) 0 L Nucleated RBC % Seg Neutrophils # Man Lymphocytes # (Manual) 0.0 L Haptoglobin PT INR Fibrinogen Lupus Anticoagulant LA PTT Baseline POC ABG pH POC ABG pCO2 POC ABG pO2 Sodium 135 L Potassium Chloride 97.7 L Carbon Dioxide BUN 67 H Creatinine 2.8 H Glucose 107 H POC Glucose 119 H Lactic Acid Uric Acid Calcium 7.3 L Phosphorus 4.90 H Iron TIBC Erythropoietin Ferritin Total Bilirubin Direct Bilirubin AST ALT Alkaline Phosphatase Lactate Dehydrogenase C-Reactive Protein Serum Total Protein Total Protein Albumin Yucvb-8-Skegoavkz Abnorm Protein Band 1 PEP Interpretation Crossmatch 11/02/16 11/02/16 11/02/16 06:07 09:26 10:00 WBC RBC 2.83 L Hgb 8.7 L Hct 26.5 L MCV MCHC RDW 17.4 H Plt Count 46 L Seg Neuts % (Manual) Lymphocytes % (Manual) Nucleated RBC % Seg Neutrophils # Man Lymphocytes # (Manual) Haptoglobin PT 19.9 H INR 1.69 H Fibrinogen Lupus Anticoagulant LA PTT Baseline POC ABG pH POC ABG pCO2 POC ABG pO2 Sodium Potassium Chloride Carbon Dioxide BUN Creatinine Glucose POC Glucose 111 H Lactic Acid Uric Acid Calcium Phosphorus Iron TIBC Erythropoietin Ferritin Total Bilirubin Direct Bilirubin AST ALT Alkaline Phosphatase Lactate Dehydrogenase C-Reactive Protein Serum Total Protein Total Protein Albumin Fbypw-2-Eezaplpty Abnorm Protein Band 1 PEP Interpretation Crossmatch 11/03/16 11/03/16 11/03/16 00:02 03:25 03:25 WBC RBC 2.34 L Hgb 7.0 L Hct 21.9 L MCV MCHC RDW 17.6 H Plt Count 49 L Seg Neuts % (Manual) 86.0 H Lymphocytes % (Manual) 4.0 L Nucleated RBC % Seg Neutrophils # Man Lymphocytes # (Manual) 0.3 L Haptoglobin PT INR Fibrinogen Lupus Anticoagulant LA PTT Baseline POC ABG pH POC ABG pCO2 POC ABG pO2 Sodium 136 L Potassium Chloride 94.6 L Carbon Dioxide 21 L BUN 84 H Creatinine 3.2 H Glucose 116 H POC Glucose 114 H Lactic Acid Uric Acid Calcium 7.0 L Phosphorus 5.80 H Iron TIBC Erythropoietin Ferritin Total Bilirubin Direct Bilirubin AST ALT Alkaline Phosphatase Lactate Dehydrogenase C-Reactive Protein Serum Total Protein Total Protein Albumin Ktmrv-1-Lyuekfury Abnorm Protein Band 1 PEP Interpretation Crossmatch 11/03/16 11/03/16 11/03/16 03:25 11:05 13:02 WBC RBC Hgb Hct MCV MCHC RDW Plt Count Seg Neuts % (Manual) Lymphocytes % (Manual) Nucleated RBC % Seg Neutrophils # Man Lymphocytes # (Manual) Haptoglobin PT 22.5 H INR 1.98 H Fibrinogen Lupus Anticoagulant LA PTT Baseline POC ABG pH POC ABG pCO2 POC ABG pO2 Sodium Potassium Chloride Carbon Dioxide BUN Creatinine Glucose POC Glucose 165 H Lactic Acid Uric Acid Calcium Phosphorus Iron TIBC Erythropoietin Ferritin Total Bilirubin Direct Bilirubin AST ALT Alkaline Phosphatase Lactate Dehydrogenase C-Reactive Protein Serum Total Protein Total Protein Albumin Uckoj-3-Qhhevgowd Abnorm Protein Band 1 PEP Interpretation Crossmatch See Detail 11/03/16 11/04/16 11/04/16 18:13 00:27 05:40 WBC RBC Hgb Hct MCV MCHC RDW Plt Count Seg Neuts % (Manual) Lymphocytes % (Manual) Nucleated RBC % Seg Neutrophils # Man Lymphocytes # (Manual) Haptoglobin PT 20.3 H INR 1.74 H Fibrinogen Lupus Anticoagulant LA PTT Baseline POC ABG pH POC ABG pCO2 POC ABG pO2 Sodium Potassium Chloride Carbon Dioxide BUN Creatinine Glucose POC Glucose 163 H 108 H Lactic Acid Uric Acid Calcium Phosphorus Iron TIBC Erythropoietin Ferritin Total Bilirubin Direct Bilirubin AST ALT Alkaline Phosphatase Lactate Dehydrogenase C-Reactive Protein Serum Total Protein Total Protein Albumin Erwib-6-Nyjwismyr Abnorm Protein Band 1 PEP Interpretation Crossmatch 11/04/16 11/04/16 11/04/16 11:41 14:48 17:58 WBC RBC Hgb Hct MCV MCHC RDW Plt Count Seg Neuts % (Manual) Lymphocytes % (Manual) Nucleated RBC % Seg Neutrophils # Man Lymphocytes # (Manual) Haptoglobin PT INR Fibrinogen Lupus Anticoagulant LA PTT Baseline POC ABG pH POC ABG pCO2 POC ABG pO2 107 H Sodium Potassium Chloride Carbon Dioxide BUN Creatinine Glucose POC Glucose 175 H 106 H Lactic Acid Uric Acid Calcium Phosphorus Iron TIBC Erythropoietin Ferritin Total Bilirubin Direct Bilirubin AST ALT Alkaline Phosphatase Lactate Dehydrogenase C-Reactive Protein Serum Total Protein Total Protein Albumin Hzsqv-5-Ffymkspzx Abnorm Protein Band 1 PEP Interpretation Crossmatch 11/05/16 11/05/16 11/05/16 00:21 04:55 05:40 WBC RBC 2.60 L Hgb 8.1 L Hct 24.6 L MCV 95 H MCHC RDW 16.4 H Plt Count 34 L Seg Neuts % (Manual) Lymphocytes % (Manual) 1.0 L Nucleated RBC % Seg Neutrophils # Man Lymphocytes # (Manual) 0.1 L Haptoglobin PT INR Fibrinogen Lupus Anticoagulant LA PTT Baseline POC ABG pH POC ABG pCO2 POC ABG pO2 Sodium Potassium Chloride Carbon Dioxide BUN Creatinine Glucose POC Glucose 117 H 143 H Lactic Acid Uric Acid Calcium Phosphorus Iron TIBC Erythropoietin Ferritin Total Bilirubin Direct Bilirubin AST ALT Alkaline Phosphatase Lactate Dehydrogenase C-Reactive Protein Serum Total Protein Total Protein Albumin Pxaht-1-Qzpocrnng Abnorm Protein Band 1 PEP Interpretation Crossmatch 11/05/16 11/05/16 11/05/16 06:00 11:20 18:03 WBC RBC Hgb Hct MCV MCHC RDW Plt Count Seg Neuts % (Manual) Lymphocytes % (Manual) Nucleated RBC % Seg Neutrophils # Man Lymphocytes # (Manual) Haptoglobin PT INR Fibrinogen Lupus Anticoagulant LA PTT Baseline POC ABG pH POC ABG pCO2 POC ABG pO2 Sodium Potassium Chloride Carbon Dioxide BUN 46 H Creatinine 2.0 H Glucose 166 H POC Glucose 147 H 178 H Lactic Acid Uric Acid Calcium 7.3 L Phosphorus Iron TIBC Erythropoietin Ferritin Total Bilirubin Direct Bilirubin AST ALT Alkaline Phosphatase Lactate Dehydrogenase C-Reactive Protein Serum Total Protein Total Protein Albumin Kempg-2-Cadjlrlds Abnorm Protein Band 1 PEP Interpretation Crossmatch 11/05/16 11/05/16 11/06/16 21:31 23:49 05:09 WBC RBC Hgb Hct MCV MCHC RDW Plt Count Seg Neuts % (Manual) Lymphocytes % (Manual) Nucleated RBC % Seg Neutrophils # Man Lymphocytes # (Manual) Haptoglobin PT INR Fibrinogen Lupus Anticoagulant LA PTT Baseline POC ABG pH 7.464 H POC ABG pCO2 34.8 L POC ABG pO2 219 H Sodium Potassium Chloride Carbon Dioxide BUN Creatinine Glucose POC Glucose 130 H 138 H Lactic Acid Uric Acid Calcium Phosphorus Iron TIBC Erythropoietin Ferritin Total Bilirubin Direct Bilirubin AST ALT Alkaline Phosphatase Lactate Dehydrogenase C-Reactive Protein Serum Total Protein Total Protein Albumin Opmsw-5-Tchzonwic Abnorm Protein Band 1 PEP Interpretation Crossmatch 11/06/16 11/06/16 11/06/16 08:10 08:10 11:23 WBC RBC 2.78 L Hgb 8.7 L Hct 26.4 L MCV 95 H MCHC RDW 17.3 H Plt Count 34 L Seg Neuts % (Manual) Lymphocytes % (Manual) Nucleated RBC % Seg Neutrophils # Man Lymphocytes # (Manual) Haptoglobin PT INR Fibrinogen Lupus Anticoagulant LA PTT Baseline POC ABG pH POC ABG pCO2 POC ABG pO2 Sodium Potassium Chloride 97.8 L Carbon Dioxide BUN 72 H Creatinine 3.0 H Glucose 173 H POC Glucose 129 H Lactic Acid Uric Acid Calcium 7.2 L Phosphorus Iron TIBC Erythropoietin Ferritin Total Bilirubin Direct Bilirubin AST 105 H ALT Alkaline Phosphatase 759 H Lactate Dehydrogenase C-Reactive Protein Serum Total Protein Total Protein 5.1 L Albumin 1.9 L Zphcq-9-Goaveuzzc Abnorm Protein Band 1 PEP Interpretation Crossmatch 11/06/16 11/07/16 11/07/16 17:17 05:09 08:27 WBC RBC 2.76 L Hgb 8.5 L Hct 25.9 L MCV MCHC RDW 16.5 H Plt Count 33 L Seg Neuts % (Manual) Lymphocytes % (Manual) Nucleated RBC % Seg Neutrophils # Man Lymphocytes # (Manual) Haptoglobin PT INR Fibrinogen Lupus Anticoagulant LA PTT Baseline POC ABG pH POC ABG pCO2 POC ABG pO2 Sodium Potassium Chloride Carbon Dioxide BUN Creatinine Glucose POC Glucose 160 H 136 H Lactic Acid Uric Acid Calcium Phosphorus Iron TIBC Erythropoietin Ferritin Total Bilirubin Direct Bilirubin AST ALT Alkaline Phosphatase Lactate Dehydrogenase C-Reactive Protein Serum Total Protein Total Protein Albumin Seega-1-Gbsocxkvv Abnorm Protein Band 1 PEP Interpretation Crossmatch 11/07/16 11/07/16 11/07/16 08:27 11:37 12:38 WBC RBC Hgb Hct MCV MCHC RDW Plt Count Seg Neuts % (Manual) Lymphocytes % (Manual) Nucleated RBC % Seg Neutrophils # Man Lymphocytes # (Manual) Haptoglobin PT INR Fibrinogen Lupus Anticoagulant LA PTT Baseline POC ABG pH 7.492 H POC ABG pCO2 29.8 L POC ABG pO2 132 H Sodium Potassium Chloride 96.0 L Carbon Dioxide BUN 94 H Creatinine 3.3 H Glucose 115 H POC Glucose 113 H Lactic Acid Uric Acid Calcium 7.7 L Phosphorus Iron TIBC Erythropoietin Ferritin Total Bilirubin Direct Bilirubin AST ALT Alkaline Phosphatase Lactate Dehydrogenase C-Reactive Protein Serum Total Protein Total Protein Albumin Lwdta-8-Soxivldhu Abnorm Protein Band 1 PEP Interpretation Crossmatch 11/07/16 11/07/16 11/08/16 17:20 23:40 05:15 WBC RBC 2.87 L Hgb 8.9 L Hct 26.9 L MCV MCHC RDW 16.7 H Plt Count 34 L Seg Neuts % (Manual) Lymphocytes % (Manual) Nucleated RBC % Seg Neutrophils # Man Lymphocytes # (Manual) Haptoglobin PT INR Fibrinogen Lupus Anticoagulant LA PTT Baseline POC ABG pH POC ABG pCO2 POC ABG pO2 Sodium Potassium Chloride Carbon Dioxide BUN Creatinine Glucose POC Glucose 121 H 122 H Lactic Acid Uric Acid Calcium Phosphorus Iron TIBC Erythropoietin Ferritin Total Bilirubin Direct Bilirubin AST ALT Alkaline Phosphatase Lactate Dehydrogenase C-Reactive Protein Serum Total Protein Total Protein Albumin Dphdw-4-Fmlavdzxl Abnorm Protein Band 1 PEP Interpretation Crossmatch 11/08/16 11/08/16 11/08/16 05:15 05:31 10:05 WBC RBC Hgb Hct MCV MCHC RDW Plt Count Seg Neuts % (Manual) Lymphocytes % (Manual) Nucleated RBC % Seg Neutrophils # Man Lymphocytes # (Manual) Haptoglobin PT INR Fibrinogen Lupus Anticoagulant LA PTT Baseline POC ABG pH 7.510 H POC ABG pCO2 29.5 L POC ABG pO2 114 H Sodium Potassium Chloride Carbon Dioxide BUN 73 H Creatinine 2.8 H Glucose 110 H POC Glucose 106 H Lactic Acid Uric Acid Calcium 7.6 L Phosphorus Iron TIBC Erythropoietin Ferritin Total Bilirubin Direct Bilirubin AST ALT Alkaline Phosphatase Lactate Dehydrogenase C-Reactive Protein Serum Total Protein Total Protein Albumin Yzkun-1-Xbkltfnip Abnorm Protein Band 1 PEP Interpretation Crossmatch 06/11/08/16 11/08/16 12:24 12:53 18:05 WBC RBC Hgb Hct MCV MCHC RDW Plt Count Seg Neuts % (Manual) Lymphocytes % (Manual) Nucleated RBC % Seg Neutrophils # Man Lymphocytes # (Manual) Haptoglobin PT INR Fibrinogen Lupus Anticoagulant LA PTT Baseline POC ABG pH POC ABG pCO2 52.3 H POC ABG pO2 Sodium Potassium Chloride Carbon Dioxide BUN Creatinine Glucose POC Glucose 110 H 166 H Lactic Acid Uric Acid Calcium Phosphorus Iron TIBC Erythropoietin Ferritin Total Bilirubin Direct Bilirubin AST ALT Alkaline Phosphatase Lactate Dehydrogenase C-Reactive Protein Serum Total Protein Total Protein Albumin Etqcj-9-Qwqatsmxg Abnorm Protein Band 1 PEP Interpretation Crossmatch 11/09/16 11/09/16 11/09/16 00:27 05:22 07:39 WBC 11.1 H RBC 2.91 L Hgb 8.9 L Hct 27.7 L MCV 95 H MCHC RDW 17.4 H Plt Count 59 L Seg Neuts % (Manual) Lymphocytes % (Manual) Nucleated RBC % Seg Neutrophils # Man Lymphocytes # (Manual) Haptoglobin PT INR Fibrinogen Lupus Anticoagulant LA PTT Baseline POC ABG pH POC ABG pCO2 POC ABG pO2 Sodium Potassium Chloride Carbon Dioxide BUN Creatinine Glucose POC Glucose 196 H 213 H Lactic Acid Uric Acid Calcium Phosphorus Iron TIBC Erythropoietin Ferritin Total Bilirubin Direct Bilirubin AST ALT Alkaline Phosphatase Lactate Dehydrogenase C-Reactive Protein Serum Total Protein Total Protein Albumin Ftism-6-Nkdozisml Abnorm Protein Band 1 PEP Interpretation Crossmatch 11/09/16 11/09/16 11/09/16 07:39 12:24 18:01 WBC RBC Hgb Hct MCV MCHC RDW Plt Count Seg Neuts % (Manual) Lymphocytes % (Manual) Nucleated RBC % Seg Neutrophils # Man Lymphocytes # (Manual) Haptoglobin PT INR Fibrinogen Lupus Anticoagulant LA PTT Baseline POC ABG pH POC ABG pCO2 POC ABG pO2 Sodium Potassium 3.3 L Chloride Carbon Dioxide BUN 47 H Creatinine 1.9 H Glucose 207 H POC Glucose 148 H 123 H Lactic Acid Uric Acid Calcium 7.6 L Phosphorus Iron TIBC Erythropoietin Ferritin Total Bilirubin Direct Bilirubin AST ALT Alkaline Phosphatase Lactate Dehydrogenase C-Reactive Protein Serum Total Protein Total Protein Albumin Kcqxj-3-Ggxrweqci Abnorm Protein Band 1 PEP Interpretation Crossmatch 11/10/16 11/10/16 11/10/16 00:34 06:15 06:15 WBC RBC 2.66 L Hgb 8.3 L Hct 25.9 L MCV 98 H D MCHC RDW 17.6 H Plt Count 50 L Seg Neuts % (Manual) Lymphocytes % (Manual) Nucleated RBC % Seg Neutrophils # Man Lymphocytes # (Manual) Haptoglobin PT INR Fibrinogen Lupus Anticoagulant LA PTT Baseline POC ABG pH POC ABG pCO2 POC ABG pO2 Sodium Potassium Chloride Carbon Dioxide BUN 64 H Creatinine 2.3 H Glucose 154 H POC Glucose 176 H Lactic Acid Uric Acid Calcium 7.6 L Phosphorus Iron TIBC Erythropoietin Ferritin Total Bilirubin Direct Bilirubin AST ALT Alkaline Phosphatase Lactate Dehydrogenase C-Reactive Protein Serum Total Protein Total Protein Albumin Fcpda-9-Hndapppzb Abnorm Protein Band 1 PEP Interpretation Crossmatch 11/10/16 11/10/16 11/11/16 12:03 17:03 00:03 WBC RBC Hgb Hct MCV MCHC RDW Plt Count Seg Neuts % (Manual) Lymphocytes % (Manual) Nucleated RBC % Seg Neutrophils # Man Lymphocytes # (Manual) Haptoglobin PT INR Fibrinogen Lupus Anticoagulant LA PTT Baseline POC ABG pH POC ABG pCO2 POC ABG pO2 Sodium Potassium Chloride Carbon Dioxide BUN Creatinine Glucose POC Glucose 121 H < 40 L 121 H Lactic Acid Uric Acid Calcium Phosphorus Iron TIBC Erythropoietin Ferritin Total Bilirubin Direct Bilirubin AST ALT Alkaline Phosphatase Lactate Dehydrogenase C-Reactive Protein Serum Total Protein Total Protein Albumin Lmhcg-4-Zxfugavdu Abnorm Protein Band 1 PEP Interpretation Crossmatch 11/11/16 11/11/16 11/11/16 05:27 08:30 08:30 WBC RBC 2.76 L Hgb 8.5 L Hct 26.4 L MCV 96 H MCHC RDW 17.3 H Plt Count 45 L Seg Neuts % (Manual) 74.0 H Lymphocytes % (Manual) 0 L Nucleated RBC % 1.0 H Seg Neutrophils # Man 7.8 H Lymphocytes # (Manual) 0.0 L Haptoglobin PT INR Fibrinogen Lupus Anticoagulant LA PTT Baseline POC ABG pH POC ABG pCO2 POC ABG pO2 Sodium Potassium 3.4 L Chloride Carbon Dioxide BUN 45 H Creatinine 1.8 H Glucose 138 H POC Glucose 113 H Lactic Acid Uric Acid Calcium 7.6 L Phosphorus Iron TIBC Erythropoietin Ferritin Total Bilirubin Direct Bilirubin AST 87 H ALT Alkaline Phosphatase 635 H Lactate Dehydrogenase C-Reactive Protein Serum Total Protein Total Protein 4.9 L Albumin 1.7 L Iclrr-0-Cikojgfiu Abnorm Protein Band 1 PEP Interpretation Crossmatch Allied health notes reviewed: RT
[2016-11-11] MEDS ORDERED: SIMPLE SYRUP FEEDTUBE PRN ×2 (13:27)
[2016-11-11] MEDS ORDERED: PANCREAZE DR 10,500 UNIT FEEDTUBE PRN (13:27)
[2016-11-11] MEDS: HEPARIN IV PRN (14:28)
--- NOTE | 2016-11-11 15:57 | Progress Note ---
Assessment and Plan Patient is a 61-year-old man without known past medical history who presented to the emergency department [facility] on 10/13/16, complaining of bilateral leg swelling that worsened for the last 4 days. He was found to have severe metabolic acidosis, creatinine was 14.5 with hyperkalemia, emergent Hemodialysis was done. He was also found to have severe pancytopenia, thrombocytopenia and Dr. 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 He was on bipap and was intubated 10/16/16, details are not readily available on why he needed to be intubated, no nursing note for 10/16. -Acute encephalopathy, not sedated, neurology following [facility] confirms multifocal hemorrhagic lesions but no midline shift/compression of brain structures/significant mass effect and is actually improved from prior MRI. CTA H/N w/o vascular lesion. JNOATHAN w/o endocarditis or source of emboli. 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 Avoid all blood thinners until hemorrhage stable. BP control: goal < 140/90 -AFIB WITH RVR, stable: Cardiology is following -Group B strep bacteremia: JONATHAN done on 10/27/16 -Acute Respiratory failure with hypoxia, intubated: continue mv, -Pancytopenia [leukopenia, severe anemia, Woresening thrombocytopenia] heme/onc is following, s/p PLASMAPHERSIS, s/p PRBC transfusion, s/p plt transfusion -ARF, renal tubular stasis, poa, getting hemodialysis: monitor closely -secondary coagulopathy -Lactic acidosis -Probable TTP, await [id number] results -hypoglycemia, resolved -Acute systolic congestive heart failure EF around 30% -SEVERE SEPSIS, poa - cardiogenic shock, on levophed Trach and peg done 11/05/16: pt count dropped to 34, renal function much improved, h/h steady, continue to monitor. 11/06/16: plt count still low. Repeat in am. Severe protein calorie malnutrition , poa, getting worse, ?increase PEG feedings, Cardiopulmonary Physical Therapist is following. 11/07/16: ADAMT13 still pending, Heme/onc to follow up. 11/08/13: Platelet count improving, ADAMT13 still pending. cont supportive care 11/09/14: no new issue, cont supportive care. Platelet count improving, ADAMT13 still pending. hematology following. 11/10/16: patelet at 50 today, continue to follow with repeat lab 11/11/16: getting HD at bedside, clinically unchanged, platelet count not improved. pulmonary recommended may need bone biopsy. Subjective Date of service: 11/11/16 Principal diagnosis: Sepsis Syndrome; MAHA; RAJESH; CHF; TTP Interval history: Patient seen and examined. Patient still intubated. Overnight uneventful. Imaging, old records, testing, labs, nursing notes reviewed. Objective - Exam Narrative Exam: GEN: Critically ill intubated but not sedated HEENT: Eyes are floating,trach in place CVS: irregular, NORMAL S1S2 LUNGS/CHEST: NORMAL CHEST EXPANSION B, GOOD AIR ENTRY B ABD: SOFT, peg in place POSITIVE BOWEL SOUNDS, NONDISTENDED, NO REBOUND OR GUARDING NEURO: CN 2-12 GROSSLY INTACT, he doesn't follow commands PSY: Unresponsive - Constitutional Vitals: Vital Signs - 12hr 11/11/16 11/11/16 11/11/16 04:00 04:15 04:30 Temperature 100.1 F H Pulse Rate 102 H 101 H Pulse Rate [ 102 H From Monitor] Respiratory 22 24 Rate Blood Pressure 101/55 104/70 128/67 O2 Sat by Pulse 95 93 98 Oximetry O2 Sat by Pulse Oximetry [ Anterior Bilateral Throughout] O2 Sat by Pulse Oximetry [ Assessment] 11/11/16 11/11/16 11/11/16 04:37 04:46 05:00 Temperature Pulse Rate 98 H 110 H Pulse Rate [ From Monitor] Respiratory 31 H Rate Blood Pressure 101/55 128/67 110/68 O2 Sat by Pulse 98 100 100 Oximetry O2 Sat by Pulse Oximetry [ Anterior Bilateral Throughout] O2 Sat by Pulse Oximetry [ Assessment] 11/11/16 11/11/16 11/11/16 05:16 05:30 05:45 Temperature Pulse Rate 100 H 100 H 99 H Pulse Rate [ From Monitor] Respiratory 20 15 18 Rate Blood Pressure 110/68 110/68 102/58 O2 Sat by Pulse 95 100 100 Oximetry O2 Sat by Pulse Oximetry [ Anterior Bilateral Throughout] O2 Sat by Pulse Oximetry [ Assessment] 11/11/16 11/11/16 11/11/16 06:00 06:03 06:15 Temperature Pulse Rate 98 H 99 H Pulse Rate [ From Monitor] Respiratory 19 16 Rate Blood Pressure 111/54 104/43 O2 Sat by Pulse 99 Oximetry O2 Sat by Pulse Oximetry [ Anterior Bilateral Throughout] O2 Sat by Pulse 100 Oximetry [ Assessment] 11/11/16 11/11/16 11/11/16 06:30 06:45 07:00 Temperature Pulse Rate 100 H 96 H 100 H Pulse Rate [ From Monitor] Respiratory 18 24 26 H Rate Blood Pressure 109/47 114/57 95/49 O2 Sat by Pulse 100 100 100 Oximetry O2 Sat by Pulse Oximetry [ Anterior Bilateral Throughout] O2 Sat by Pulse Oximetry [ Assessment] 11/11/16 11/11/16 11/11/16 07:15 07:30 07:45 Temperature Pulse Rate 99 H 96 H 98 H Pulse Rate [ From Monitor] Respiratory 17 19 19 Rate Blood Pressure 90/57 83/50 96/54 O2 Sat by Pulse 100 100 100 Oximetry O2 Sat by Pulse Oximetry [ Anterior Bilateral Throughout] O2 Sat by Pulse Oximetry [ Assessment] 11/11/16 11/11/16 11/11/16 08:00 08:15 08:30 Temperature 99.7 F H Pulse Rate 99 H 98 H 101 H Pulse Rate [ From Monitor] Respiratory 14 19 20 Rate Blood Pressure 96/63 109/58 93/50 O2 Sat by Pulse 98 100 100 Oximetry O2 Sat by Pulse Oximetry [ Anterior Bilateral Throughout] O2 Sat by Pulse Oximetry [ Assessment] 11/11/16 11/11/16 11/11/16 08:45 09:00 09:15 Temperature Pulse Rate 100 H 103 H 101 H Pulse Rate [ From Monitor] Respiratory 20 18 20 Rate Blood Pressure 97/55 96/54 88/48 O2 Sat by Pulse 100 100 100 Oximetry O2 Sat by Pulse Oximetry [ Anterior Bilateral Throughout] O2 Sat by Pulse Oximetry [ Assessment] 11/11/16 11/11/16 11/11/16 09:30 09:45 09:49 Temperature Pulse Rate 99 H 100 H 99 H Pulse Rate [ From Monitor] Respiratory 14 21 Rate Blood Pressure 88/58 87/51 88/58 O2 Sat by Pulse 100 100 100 Oximetry O2 Sat by Pulse Oximetry [ Anterior Bilateral Throughout] O2 Sat by Pulse Oximetry [ Assessment] 11/11/16 11/11/16 11/11/16 10:00 10:02 10:03 Temperature 99.7 F H Pulse Rate 100 H 102 H Pulse Rate [ From Monitor] Respiratory 23 22 Rate Blood Pressure 141/64 166/70 O2 Sat by Pulse 98 Oximetry O2 Sat by Pulse 99 Oximetry [ Anterior Bilateral Throughout] O2 Sat by Pulse 97 Oximetry [ Assessment] 11/11/16 11/11/16 11/11/16 10:15 10:30 10:45 Temperature Pulse Rate 105 H 104 H 102 H Pulse Rate [ From Monitor] Respiratory 22 25 H 22 Rate Blood Pressure 129/55 113/54 119/51 O2 Sat by Pulse 97 100 100 Oximetry O2 Sat by Pulse Oximetry [ Anterior Bilateral Throughout] O2 Sat by Pulse Oximetry [ Assessment] 11/11/16 11/11/16 11/11/16 11:00 11:15 11:30 Temperature Pulse Rate 104 H 102 H 102 H Pulse Rate [ From Monitor] Respiratory 29 H 23 23 Rate Blood Pressure 122/56 122/49 110/55 O2 Sat by Pulse 90 100 99 Oximetry O2 Sat by Pulse Oximetry [ Anterior Bilateral Throughout] O2 Sat by Pulse Oximetry [ Assessment] 11/11/16 11/11/16 11/11/16 11:45 12:00 12:05 Temperature Pulse Rate 100 H 101 H 101 H Pulse Rate [ From Monitor] Respiratory 23 22 Rate Blood Pressure 120/54 115/49 118/50 O2 Sat by Pulse 77 L 99 Oximetry O2 Sat by Pulse Oximetry [ Anterior Bilateral Throughout] O2 Sat by Pulse Oximetry [ Assessment] 11/11/16 11/11/16 11/11/16 12:15 12:30 12:46 Temperature Pulse Rate 101 H 106 H 106 H Pulse Rate [ From Monitor] Respiratory 23 26 H 33 H Rate Blood Pressure 118/49 106/48 106/48 O2 Sat by Pulse 100 100 100 Oximetry O2 Sat by Pulse Oximetry [ Anterior Bilateral Throughout] O2 Sat by Pulse Oximetry [ Assessment] 11/11/16 11/11/16 11/11/16 13:00 13:02 13:15 Temperature Pulse Rate 103 H 103 H 100 H Pulse Rate [ From Monitor] Respiratory 23 Rate Blood Pressure 119/55 103/45 119/55 O2 Sat by Pulse 100 Oximetry O2 Sat by Pulse Oximetry [ Anterior Bilateral Throughout] O2 Sat by Pulse Oximetry [ Assessment] 11/11/16 11/11/16 11/11/16 13:30 13:45 14:00 Temperature Pulse Rate 102 H 102 H 106 H Pulse Rate [ From Monitor] Respiratory Rate Blood Pressure 114/55 119/56 115/58 O2 Sat by Pulse Oximetry O2 Sat by Pulse Oximetry [ Anterior Bilateral Throughout] O2 Sat by Pulse Oximetry [ Assessment] 11/11/16 11/11/16 14:23 15:36 Temperature 98.6 F Pulse Rate 103 H 103 H Pulse Rate [ From Monitor] Respiratory 22 Rate Blood Pressure 124/53 100/46 O2 Sat by Pulse 98 Oximetry O2 Sat by Pulse 100 Oximetry [ Anterior Bilateral Throughout] O2 Sat by Pulse Oximetry [ Assessment] - Labs CBC & Chem 7: 11/11/16 08:30 11/11/16 08:30 Labs: Abnormal lab results 11/10/16 11/11/16 11/11/16 Range/Units 17:03 00:03 05:27 RBC (3.65-5.03) M/mm3 Hgb (11.8-15.2) gm/dl Hct (35.5-45.6) % MCV (84-94) fl RDW (13.2-15.2) % Plt Count (140-440) K/mm3 Seg Neuts % (Manual) (40.0-70.0) % Lymphocytes % (Manual) (13.4-35.0) % Nucleated RBC % (0.0-0.9) % Seg Neutrophils # Man (1.8-7.7) K/mm3 Lymphocytes # (Manual) (1.2-5.4) K/mm3 Potassium (3.6-5.0) mmol/L BUN (9-20) mg/dL Creatinine (0.8-1.5) mg/dL Glucose (75-100) mg/dL POC Glucose < 40 L 121 H 113 H (70-105) Calcium (8.4-10.2) mg/dL AST (5-40) units/L Alkaline Phosphatase (35-129) units/L Total Protein (6.3-8.2) g/dL Albumin (3.9-5) g/dL 11/11/16 11/11/16 Range/Units 08:30 08:30 RBC 2.76 L (3.65-5.03) M/mm3 Hgb 8.5 L (11.8-15.2) gm/dl Hct 26.4 L (35.5-45.6) % MCV 96 H (84-94) fl RDW 17.3 H (13.2-15.2) % Plt Count 45 L (140-440) K/mm3 Seg Neuts % (Manual) 74.0 H (40.0-70.0) % Lymphocytes % (Manual) 0 L (13.4-35.0) % Nucleated RBC % 1.0 H (0.0-0.9) % Seg Neutrophils # Man 7.8 H (1.8-7.7) K/mm3 Lymphocytes # (Manual) 0.0 L (1.2-5.4) K/mm3 Potassium 3.4 L (3.6-5.0) mmol/L BUN 45 H (9-20) mg/dL Creatinine 1.8 H (0.8-1.5) mg/dL Glucose 138 H (75-100) mg/dL POC Glucose (70-105) Calcium 7.6 L (8.4-10.2) mg/dL AST 87 H (5-40) units/L Alkaline Phosphatase 635 H (35-129) units/L Total Protein 4.9 L (6.3-8.2) g/dL Albumin 1.7 L (3.9-5) g/dL
--- NOTE | 2016-11-11 19:43 | Consultation ---
History of Present Illness - Reason for Consult Consult date: 11/11/16 - History of Present Illness patient seen/examined, labs reviewed, remain fair, but clinically unchanged. Past History Past Medical History: hypertension, other (Had shingles in November 27-) Past Surgical History: No surgical history Social history: , full code, other (Patienti s and lives with his ). denies: smoking, alcohol abuse, prescription drug abuse, IV drug use Family history: no significant family history Medications and Allergies Allergies Allergy/AdvReac Type Severity Reaction Status Date / Time No Known Allergies Allergy Unverified 10/13/16 09:41 Home Medications Medication Instructions Recorded Confirmed Last Taken Type Naproxen Sodium [Aleve TAB] 2 tab PO Q8H PRN 10/13/16 10/13/16 10/12/16 14:00 History Active Meds: Active Medications Acetaminophen (Tylenol) 1,000 mg MD Q4H PRN PRN Reason: Pain, Mild (1-3) Last Admin: 10/20/16 15:40 Dose: 1,000 mg Acetaminophen (Tylenol) 650 mg FEEDTUBE Q6H PRN PRN Reason: Pain, Mild (1-3) Last Admin: 10/24/16 10:56 Dose: 650 mg Alteplase, Recombinant (Cathflo) 4 mg IV ROD PRN PRN Reason: hemodialysis Last Admin: 11/07/16 14:24 Dose: 4 mg Lipase/Protease/Amylase (Pancreaze Dr 10,500 Unit) 1 each FEEDTUBE PRN PRN PRN Reason: For Clogged Feeding Tube Dextrose (D50w (25gm)) 25 ml IV PRN PRN PRN Reason: Hypoglycemia Last Admin: 11/10/16 17:14 Dose: 25 ml Diphenhydramine HCl (Benadryl) 50 mg IV Q6H PRN PRN Reason: Itching Last Admin: 10/24/16 10:57 Dose: 50 mg Famotidine (Pepcid) 20 mg PO Q24H EDWINA Last Admin: 11/11/16 10:00 Dose: 20 mg Haloperidol Lactate (Haldol) 5 mg IM Q6H PRN PRN Reason: Agitation Last Admin: 10/14/16 21:11 Dose: 5 mg Heparin Sodium (Porcine) (Heparin) 10,000 unit IV ROD PRN PRN Reason: for plasmapheresis- vascath Last Admin: 11/11/16 14:28 Dose: 10,000 unit Hydrophilic Ointment (Vaseline Lip Therapy) 1 applic TP Q2H PRN PRN Reason: Dry Lips Fentanyl Citrate (Fentanyl Drip Premix) 2,000 mcg in 100 mls @ 3.045 mls/hr IV TITR EDWINA; 1 MCG/KG/HR PRN Reason: Protocol Norepinephrine (Levophed Drip 4 Mg/Ns 250 Ml) 4 mg in 250 mls @ 7.5 mls/hr IV TITR EDWINA; 2 MCG/MIN PRN Reason: Protocol Last Titration: 11/11/16 18:00 Dose: 20 mcg/min, 75 mls/hr Vasopressin 20 unit/ Sodium (Chloride) 101 mls @ 9.09 mls/hr IV TITR EDWINA; 0.03 UNITS/MIN PRN Reason: Protocol Sodium Chloride (Nacl 0.9%) 100 mls @ 999 mls/hr IV ROD PRN PRN Reason: Hypotension Norepinephrine 8 mg/ Sodium (Chloride) 250 mls @ 3.75 mls/hr IV TITR EDWINA; 2 MCG /MIN PRN Reason: Protocol Insulin Aspart (Novolog) 0 units SUB-Q Q6HR EDWINA PRN Reason: Protocol Last Admin: 11/11/16 18:23 Dose: 3 units Labetalol HCl (Normodyne) 20 mg IV Q6H PRN PRN Reason: Hypertension Last Admin: 10/25/16 05:33 Dose: 20 mg Loperamide HCl (Imodium A-D) 2 mg PO Q2H PRN PRN Reason: Diarrhea Last Admin: 11/03/16 14:09 Dose: 2 mg Metoprolol Tartrate (Lopressor) 25 mg PO BID EDWINA Last Admin: 11/11/16 10:00 Dose: Not Given Multi-Ingred Cream/Lotion/Oil/Oint (Artificial Tears Ophth Oint) 1 applic OU Q4H PRN PRN Reason: Dry Eye(s) Ondansetron HCl (Zofran) 4 mg IV Q8H PRN PRN Reason: Nausea And Vomiting Simple Syrup (Simple Syrup) 15 ml FEEDTUBE PRN PRN PRN Reason: Hypoglycemia Simple Syrup (Simple Syrup) 30 ml FEEDTUBE PRN PRN PRN Reason: Hypoglycemia Sodium Bicarbonate (Sodium Bicarbonate) 325 mg FEEDTUBE PRN PRN PRN Reason: For Clogged Feeding Tube Last Admin: 11/02/16 11:08 Dose: 325 mg Sodium Chloride (Sodium Chloride Flush Syringe 10 Ml) 10 ml IV PRN PRN PRN Reason: LINE FLUSH Last Admin: 10/17/16 20:45 Dose: 10 ml Review of Systems Constitutional: other (Non responsive) Exam - Constitutional Vitals: Temp Pulse Resp BP Pulse Ox 98.6 F 106 H 22 116/59 100 11/11/16 16:00 11/11/16 18:00 11/11/16 18:00 11/11/16 18:00 11/11/16 18:00 - EENT Eyes: Present: PERRL ENT: hearing intact, clear oral mucosa - Neck Neck: Present: supple, normal ROM - Respiratory Respiratory: bilateral: CTA - Cardiovascular Heart Sounds: Present: S1 & S2. Absent: rub, click - Extremities Extremities: pulses symmetrical, No edema Peripheral Pulses: within normal limits - Abdominal General gastrointestinal: Present: soft, normal bowel sounds Male genitourinary: Present: deferred - Rectal Rectal Exam: deferred - Integumentary Integumentary: Present: clear, warm, dry - Neurologic Neurologic: CNII-XII intact, moves all extremities Results - Labs CBC & Chem 7: 11/11/16 08:30 11/11/16 08:30 Labs: Abnormal lab results 11/10/16 11/11/16 11/11/16 Range/Units 17:03 00:03 05:27 RBC (3.65-5.03) M/mm3 Hgb (11.8-15.2) gm/dl Hct (35.5-45.6) % MCV (84-94) fl RDW (13.2-15.2) % Plt Count (140-440) K/mm3 Seg Neuts % (Manual) (40.0-70.0) % Lymphocytes % (Manual) (13.4-35.0) % Nucleated RBC % (0.0-0.9) % Seg Neutrophils # Man (1.8-7.7) K/mm3 Lymphocytes # (Manual) (1.2-5.4) K/mm3 Potassium (3.6-5.0) mmol/L BUN (9-20) mg/dL Creatinine (0.8-1.5) mg/dL Glucose (75-100) mg/dL POC Glucose < 40 L 121 H 113 H (70-105) Calcium (8.4-10.2) mg/dL AST (5-40) units/L Alkaline Phosphatase (35-129) units/L Total Protein (6.3-8.2) g/dL Albumin (3.9-5) g/dL 11/11/16 11/11/16 Range/Units 08:30 08:30 RBC 2.76 L (3.65-5.03) M/mm3 Hgb 8.5 L (11.8-15.2) gm/dl Hct 26.4 L (35.5-45.6) % MCV 96 H (84-94) fl RDW 17.3 H (13.2-15.2) % Plt Count 45 L (140-440) K/mm3 Seg Neuts % (Manual) 74.0 H (40.0-70.0) % Lymphocytes % (Manual) 0 L (13.4-35.0) % Nucleated RBC % 1.0 H (0.0-0.9) % Seg Neutrophils # Man 7.8 H (1.8-7.7) K/mm3 Lymphocytes # (Manual) 0.0 L (1.2-5.4) K/mm3 Potassium 3.4 L (3.6-5.0) mmol/L BUN 45 H (9-20) mg/dL Creatinine 1.8 H (0.8-1.5) mg/dL Glucose 138 H (75-100) mg/dL POC Glucose (70-105) Calcium 7.6 L (8.4-10.2) mg/dL AST 87 H (5-40) units/L Alkaline Phosphatase 635 H (35-129) units/L Total Protein 4.9 L (6.3-8.2) g/dL Albumin 1.7 L (3.9-5) g/dL Assessment and Plan - Patient Problems (1) Anemia Current Visit: Yes Status: Acute Qualifiers: Anemia type: unspecified type Iron deficiency anemia type: I Vitamin B12 deficiency anemia type: V Folate deficiency anemia type: F Bone marrow failure anemia type: B Hemolytic anemia type: H Other causes of anemia: O Chronic kidney disease stage: C Qualified Code(s): D64.9 - Anemia, unspecified Plan to address problem: will replace if less than 7.0 (2) Leucopenia Current Visit: Yes Status: Acute Qualifiers: Leukopenia type: unspecified Neutropenia type: N Qualified Code(s): D72.819 - Decreased white blood cell count, unspecified Plan to address problem: not binding. (3) Renal failure Current Visit: Yes Status: Acute Qualifiers: Renal failure chronicity: acute Acute renal failure type: unspecified Chronic kidney disease stage: C Qualified Code(s): N17.9 - Acute kidney failure, unspecified Plan to address problem: See w/up, and renal service. 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
[2016-11-11] MEDS: LEVOPHED 8 MG in NACL 0.9% 250ML 242 ML IV SCH (20:21)
[2016-11-12] MEDS: NOVOLOG SUB-Q SCH ×4 (00:40→18:12)
[2016-11-12] MEDS: LEVOPHED 8 MG in NACL 0.9% 250ML 242 ML IV SCH ×3 (03:50→22:23)
[2016-11-12 05:35] LABS: Hematocrit 27.3 % (35.5-45.6); Mean Corpuscular HGB Conc 33 % (32-34); Mean Corpuscular Hemoglobin 31 pg (28-32); Mean Corpuscular Volume 95 fl (84-94); Red Blood Count 2.87 M/mm3 (3.65-5.03); Red Cell Distribution Width 17.3 % (13.2-15.2); White Blood Count 8.4 K/mm3 (4.5-11.0)
[2016-11-12 05:50] LABS: Platelet Count 56 K/mm3 (140-440)
[2016-11-12 05:51] LABS: BUN/Creatinine Ratio 24.7; Calcium 7.8 mg/dL (8.4-10.2); Chloride 102.8 mmol/L (98-107); Phosphorous 3.6 mg/dL (2.5-4.5); Potassium 3.7 mmol/L (3.6-5.0)
[2016-11-12 06:51] LABS: Basophils % (Manual) 0 % (0.0-1.8); Blastocytes % (Manual) 0 %; Eosinophils % (Manual) 0 % (0.0-4.3); Total Cells Counted Percent 0
[2016-11-12 06:52] LABS: Anisocytosis 1+; Diff Status Complete; Giant Platelets Few; Hypochromasia 1+; Polychromasia 1+; Stomatocytes Few; Target Cells Rare
[2016-11-12 06:53] LABS: Platelet Estimate Consistent w Auto
--- NOTE | 2016-11-12 09:35 | XRay Report ---
AP CHEST 11/12/16 CLINICAL: Followup CHF. COMPARISON:03/09/17 FINDINGS: The tracheostomy tube is in satisfactory position. Right PICC line and right Vas-Cath tips are in the SVC and right atrium respectively. Stable cardiomegaly. Slightly decreased central vascular congestion and slightly decreased bilateral perihilar lung opacities. Slight improvement with decreased bibasal opacities. The costophrenic angles are blunted by pleural effusions. No pneumothorax. IMPRESSION: CHF with bilateral pleural effusions and decreased pulmonary edema.
[2016-11-12] MEDS: PEPCID PO SCH (09:49)
[2016-11-12] MEDS: LOPRESSOR PO SCH ×2 (09:52→22:23)
--- NOTE | 2016-11-12 10:01 | Progress Note ---
Assessment and Plan (1) Renal failure Current Visit: Yes Status: Acute Qualifiers: Renal failure chronicity: acute Acute renal failure type: unspecified Chronic kidney disease stage: C Qualified Code(s): N17.9 - Acute kidney failure, unspecified Plan to address problem: no HD today On Levophed drip Strict I/O monitoring Avoid Nephrotoxic agents Renally dose medications Obtain daily weights (2) Acute respiratory failure Current Visit: Yes Status: Acute Qualifiers: Respiratory failure complication: hypoxia Qualified Code(s): J96.01 - Acute respiratory failure with hypoxia Plan to address problem: on the vent via trach as per Pulmonary (3) Anemia Current Visit: Yes Status: Acute Qualifiers: Anemia type: unspecified type Iron deficiency anemia type: I Vitamin B12 deficiency anemia type: V Folate deficiency anemia type: F Bone marrow failure anemia type: B Hemolytic anemia type: H Other causes of anemia: O Chronic kidney disease stage: C Qualified Code(s): D64.9 - Anemia, unspecified Plan to address problem: Monitor labs and transfuse as needed Hematology onboard (4) Thrombocytopenia Current Visit: Yes Status: Acute Plan to address problem: per hematology (5) Atrial fibrillation Current Visit: Yes Status: Acute Qualifiers: Atrial fibrillation type: A Plan to address problem: On Metoprolol Subjective Date of service: 11/12/16 Principal diagnosis: Sepsis Syndrome; MAHA; RAJESH; CHF; TTP Interval history: on the vent, no family at the bedside Objective - Vital Signs Vital signs: Vital Signs - 12hr 11/11/16 11/11/16 11/11/16 22:15 22:17 22:30 Temperature Pulse Rate 105 H 101 H 101 H Respiratory 27 H 20 Rate Blood Pressure 96/63 89/56 117/61 O2 Sat by Pulse 100 100 Oximetry O2 Sat by Pulse Oximetry [ Assessment] 11/11/16 11/11/16 11/11/16 22:45 23:00 23:09 Temperature Pulse Rate 102 H 106 H Respiratory 19 26 H Rate Blood Pressure 119/70 144/68 O2 Sat by Pulse 95 100 Oximetry O2 Sat by Pulse 100 Oximetry [ Assessment] 11/11/16 11/11/16 11/11/16 23:10 23:16 23:30 Temperature Pulse Rate 102 H 102 H 102 H Respiratory 22 20 Rate Blood Pressure 144/68 144/68 126/63 O2 Sat by Pulse 100 100 100 Oximetry O2 Sat by Pulse Oximetry [ Assessment] 11/11/16 11/11/16 11/12/16 23:40 23:45 00:00 Temperature 99.4 F Pulse Rate 102 H 105 H 114 H Respiratory 21 25 H 32 H Rate Blood Pressure 126/63 121/69 142/93 O2 Sat by Pulse 100 100 99 Oximetry O2 Sat by Pulse Oximetry [ Assessment] 11/12/16 11/12/16 11/12/16 00:15 00:30 00:45 Temperature Pulse Rate 102 H 104 H 107 H Respiratory 22 20 27 H Rate Blood Pressure 122/64 128/66 126/71 O2 Sat by Pulse 100 100 100 Oximetry O2 Sat by Pulse Oximetry [ Assessment] 11/12/16 11/12/16 11/12/16 01:00 01:15 01:20 Temperature Pulse Rate 102 H 105 H 103 H Respiratory 22 15 Rate Blood Pressure 131/69 130/63 O2 Sat by Pulse 100 88 100 Oximetry O2 Sat by Pulse Oximetry [ Assessment] 11/12/16 11/12/16 11/12/16 01:30 01:45 02:00 Temperature Pulse Rate 103 H 108 H 107 H Respiratory 19 27 H 17 Rate Blood Pressure 123/60 141/72 130/66 O2 Sat by Pulse 95 88 96 Oximetry O2 Sat by Pulse Oximetry [ Assessment] 11/12/16 11/12/16 11/12/16 02:15 02:30 02:40 Temperature Pulse Rate 102 H 105 H 102 H Respiratory 22 28 H 14 Rate Blood Pressure 105/56 100/61 O2 Sat by Pulse 100 100 100 Oximetry O2 Sat by Pulse Oximetry [ Assessment] 11/12/16 11/12/16 11/12/16 02:45 03:00 03:15 Temperature Pulse Rate 103 H 107 H 105 H Respiratory 23 25 H 23 Rate Blood Pressure 104/62 122/68 124/65 O2 Sat by Pulse 93 95 94 Oximetry O2 Sat by Pulse Oximetry [ Assessment] 11/12/16 11/12/16 11/12/16 03:30 03:45 03:50 Temperature Pulse Rate 101 H 104 H 106 H Respiratory 22 18 Rate Blood Pressure 120/62 130/64 120/62 O2 Sat by Pulse 95 100 100 Oximetry O2 Sat by Pulse Oximetry [ Assessment] 11/12/16 11/12/16 11/12/16 04:00 04:15 04:30 Temperature 99.5 F Pulse Rate 102 H 102 H 105 H Respiratory 21 23 26 H Rate Blood Pressure 112/60 110/58 98/65 O2 Sat by Pulse 98 99 98 Oximetry O2 Sat by Pulse Oximetry [ Assessment] 11/12/16 11/12/16 11/12/16 04:40 04:45 05:00 Temperature Pulse Rate 105 H 102 H 114 H Respiratory 17 22 25 H Rate Blood Pressure 107/65 144/75 O2 Sat by Pulse 97 100 100 Oximetry O2 Sat by Pulse Oximetry [ Assessment] 11/12/16 11/12/16 11/12/16 05:15 05:30 05:45 Temperature Pulse Rate 111 H 112 H 112 H Respiratory 30 H 22 27 H Rate Blood Pressure 153/81 127/73 120/75 O2 Sat by Pulse 100 99 100 Oximetry O2 Sat by Pulse Oximetry [ Assessment] 11/12/16 11/12/16 11/12/16 06:00 06:15 06:30 Temperature Pulse Rate 112 H 109 H 107 H Respiratory 25 H 22 22 Rate Blood Pressure 139/72 129/65 118/62 O2 Sat by Pulse 100 100 100 Oximetry O2 Sat by Pulse Oximetry [ Assessment] 11/12/16 11/12/16 11/12/16 06:45 07:00 07:15 Temperature Pulse Rate 106 H 103 H 106 H Respiratory 20 22 22 Rate Blood Pressure 119/66 123/58 116/65 O2 Sat by Pulse 100 100 100 Oximetry O2 Sat by Pulse Oximetry [ Assessment] 11/12/16 11/12/16 11/12/16 07:30 07:45 08:00 Temperature 98.7 F Pulse Rate 108 H 106 H 104 H Respiratory 22 24 23 Rate Blood Pressure 103/70 108/69 99/63 O2 Sat by Pulse 100 100 100 Oximetry O2 Sat by Pulse Oximetry [ Assessment] 11/12/16 11/12/16 08:15 08:30 Temperature Pulse Rate 104 H 105 H Respiratory 22 24 Rate Blood Pressure 95/62 101/68 O2 Sat by Pulse 100 100 Oximetry O2 Sat by Pulse Oximetry [ Assessment] - General Appearance General appearance: cachectic EENT: mucous membranes dry Neck: no JVD, no carotid bruit Respiratory: Present: Decreased Breath Sounds Cardiology: tachycardia Gastrointestinal: normoactive bowel sounds, no tenderness, no distended Integumentary: no rash, rash Neurologic: other (does not follow commands) Musculoskeletal: other (1-2+ pitting edema in BLE) Psychiatric: other (does not follow commands) - Lab 11/12/16 Unknown 11/12/16 Unknown Most recent lab results Calcium 7.8 mg/dL (8.4-10.2) L 11/12/16 Unknown Phosphorus 3.60 mg/dL (2.5-4.5) 11/12/16 Unknown
[2016-11-12] MEDS: CATHFLO IV PRN (10:56)
--- NOTE | 2016-11-12 15:59 | Progress Note ---
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 - continue HD/UF per nephrology recs - follow I's and O's - correct electrolytes prn - continue to avoid nephrotoxins - per nephrology otherwise (3) Metabolic acidosis Current Visit: Yes Status: Acute Plan to address problem: - mixed etiology - Lactic Acidosis component resolved - sepsis may have been driving force for that - RAJESH component - continue HD/UF per nephrology prescription - completed Anti-infectives course and following clinically (4) CHF (congestive heart failure) Current Visit: Yes Status: Acute Qualifiers: Congestive heart failure type: C Congestive heart failure chronicity: C Plan to address problem: - ECHO consistent with possible infiltrating disease - EF 30& - will look to HD/UF for volume clearance as not responsive to diuretics - per cardiology otherwise (5) Pancytopenia Current Visit: Yes Status: Acute Plan to address problem: - hematology on case - s/p plasmapheresis - may need bone marrow evaluation - follow platelet count (6) Acute encephalopathy Current Visit: Yes Status: Acute Plan to address problem: - CT brain negative - likely toxic-metabolic encephalopathy element also - MRI abnormal - neurology evaluation ongoing - following clinically (7) Hypoglycemia Current Visit: Yes Status: Acute Plan to address problem: - improved - suspect sepsis related element - completed systemic steroid taper - also continue enteral nutrition - continue glycemic control via SSI at this point (8) Sepsis syndrome Current Visit: Yes Status: Acute Plan to address problem: - s/p antibiotic course - ID on case - CRP and lactate much improved - JONATHAN negative - following clinically - c-diff assay was negative - back on levophed but mostly for dialysis support (9) Discharge planning issues Current Visit: Yes Status: Acute Plan to address problem: - he remains critically ill on life sustaining interventions including MVS and at risk for further deterioration including ...30' CCT Subjective Date of service: 11/12/16 Principal diagnosis: Sepsis Syndrome; MAHA; RAJESH; CHF; TTP Interval history: Seen and examined at bedside; 24 hour events reviewed; nursing and respiratory care staff consulted; no adverse overnight events reported to me; still weaning tenuously; AMS is persistent; remains oliguric; no high grade fevers; was visiting and care plan discussed with her Objective Vital Signs - 12hr 11/12/16 11/12/16 11/12/16 04:00 04:15 04:30 Temperature 99.5 F Pulse Rate 102 H 102 H 105 H Respiratory 21 23 26 H Rate Blood Pressure 112/60 110/58 98/65 O2 Sat by Pulse 98 99 98 Oximetry O2 Sat by Pulse Oximetry [ Assessment] 11/12/16 11/12/16 11/12/16 04:40 04:45 05:00 Temperature Pulse Rate 105 H 102 H 114 H Respiratory 17 22 25 H Rate Blood Pressure 107/65 144/75 O2 Sat by Pulse 97 100 100 Oximetry O2 Sat by Pulse Oximetry [ Assessment] 11/12/16 11/12/16 11/12/16 05:15 05:30 05:45 Temperature Pulse Rate 111 H 112 H 112 H Respiratory 30 H 22 27 H Rate Blood Pressure 153/81 127/73 120/75 O2 Sat by Pulse 100 99 100 Oximetry O2 Sat by Pulse Oximetry [ Assessment] 11/12/16 11/12/16 11/12/16 06:00 06:15 06:30 Temperature Pulse Rate 112 H 109 H 107 H Respiratory 25 H 22 22 Rate Blood Pressure 139/72 129/65 118/62 O2 Sat by Pulse 100 100 100 Oximetry O2 Sat by Pulse Oximetry [ Assessment] 11/12/16 11/12/16 11/12/16 06:45 07:00 07:15 Temperature Pulse Rate 106 H 103 H 106 H Respiratory 20 22 22 Rate Blood Pressure 119/66 123/58 116/65 O2 Sat by Pulse 100 100 100 Oximetry O2 Sat by Pulse Oximetry [ Assessment] 11/12/16 11/12/16 11/12/16 07:30 07:45 08:00 Temperature 98.7 F Pulse Rate 108 H 106 H 104 H Respiratory 22 24 23 Rate Blood Pressure 103/70 108/69 99/63 O2 Sat by Pulse 100 100 100 Oximetry O2 Sat by Pulse Oximetry [ Assessment] 11/12/16 11/12/16 11/12/16 08:15 08:30 08:45 Temperature Pulse Rate 104 H 105 H 103 H Respiratory 22 24 21 Rate Blood Pressure 95/62 101/68 117/57 O2 Sat by Pulse 100 100 100 Oximetry O2 Sat by Pulse Oximetry [ Assessment] 11/12/16 11/12/16 11/12/16 09:00 09:15 09:30 Temperature Pulse Rate 107 H 106 H 105 H Respiratory 21 23 24 Rate Blood Pressure 110/63 122/63 102/60 O2 Sat by Pulse 100 100 100 Oximetry O2 Sat by Pulse Oximetry [ Assessment] 11/12/16 11/12/16 11/12/16 09:45 10:00 10:15 Temperature Pulse Rate 108 H 107 H 106 H Respiratory 36 H 24 25 H Rate Blood Pressure 126/81 127/61 104/57 O2 Sat by Pulse 100 100 100 Oximetry O2 Sat by Pulse 100 Oximetry [ Assessment] 11/12/16 11/12/16 11/12/16 10:30 10:45 11:00 Temperature Pulse Rate 106 H 106 H 106 H Respiratory 27 H 24 25 H Rate Blood Pressure 111/63 100/64 98/62 O2 Sat by Pulse 100 100 100 Oximetry O2 Sat by Pulse Oximetry [ Assessment] 11/12/16 11/12/16 11/12/16 11:15 11:30 11:35 Temperature Pulse Rate 107 H 107 H Respiratory 22 23 Rate Blood Pressure 111/67 99/63 O2 Sat by Pulse 100 100 97 Oximetry O2 Sat by Pulse Oximetry [ Assessment] 11/12/16 11/12/16 11/12/16 11:45 12:00 12:10 Temperature 99.7 F H Pulse Rate 107 H 107 H 115 H Respiratory 23 21 35 H Rate Blood Pressure 97/64 94/61 102/69 O2 Sat by Pulse 100 100 100 Oximetry O2 Sat by Pulse Oximetry [ Assessment] 11/12/16 11/12/16 11/12/16 12:15 12:30 12:45 Temperature Pulse Rate 108 H 109 H 111 H Respiratory 36 H 33 H 31 H Rate Blood Pressure 102/69 103/64 119/63 O2 Sat by Pulse 100 100 100 Oximetry O2 Sat by Pulse Oximetry [ Assessment] 11/12/16 11/12/16 11/12/16 13:00 13:15 13:30 Temperature Pulse Rate 109 H 109 H 109 H Respiratory 31 H 29 H 31 H Rate Blood Pressure 103/60 97/61 95/59 O2 Sat by Pulse 100 100 100 Oximetry O2 Sat by Pulse Oximetry [ Assessment] 11/12/16 11/12/16 11/12/16 13:45 14:00 14:15 Temperature Pulse Rate 112 H 111 H 109 H Respiratory 34 H 29 H 27 H Rate Blood Pressure 105/65 103/63 93/58 O2 Sat by Pulse 100 100 100 Oximetry O2 Sat by Pulse Oximetry [ Assessment] 11/12/16 11/12/16 11/12/16 14:30 14:45 15:00 Temperature Pulse Rate 107 H 107 H 109 H Respiratory 24 22 27 H Rate Blood Pressure 97/59 97/65 92/68 O2 Sat by Pulse 100 100 100 Oximetry O2 Sat by Pulse Oximetry [ Assessment] 11/12/16 15:15 Temperature Pulse Rate 110 H Respiratory 29 H Rate Blood Pressure 100/73 O2 Sat by Pulse 100 Oximetry O2 Sat by Pulse Oximetry [ Assessment] Constitutional: appears uncomfortable, other (lethargic to encephalopathic) Eyes: non-icteric ENT: oropharynx moist Neck: supple, no lymphadenopathy Effort: mildly labored Ascultation: Bilateral: diminished breath sounds, rales Cardiovascular: irregular rhythm Gastrointestinal: normoactive bowel sounds, soft, non-tender, non-distended Integumentary: normal Extremities: no cyanosis, pulses normal, no ischemia or petechiae, edema Neurologic: pupils equal and round, unable to assess Psychiatric: other (unable to assess) CBC and BMP: 11/13/16 05:30 11/13/16 05:30 ABG, PT/INR, D-dimer: ABG POC ABG pH 7.398 (7.35-7.45) 11/08/16 12:53 POC ABG pCO2 52.3 (35-45) H 11/08/16 12:53 POC ABG pO2 80 (80-105) 11/08/16 12:53 POC ABG HCO3 32.2 11/08/16 12:53 POC ABG Total CO2 34 11/08/16 12:53 POC ABG O2 Sat 95 11/08/16 12:53 PT/INR, D-dimer PT 20.3 Sec. (12.2-14.9) H 11/04/16 05:40 INR 1.74 (0.87-1.13) H 11/04/16 05:40 Abnormal lab findings: Abnormal Labs 10/13/16 10/13/16 10/13/16 14:50 21:40 22:05 WBC RBC Hgb Hct MCV MCHC RDW Plt Count Seg Neuts % (Manual) Lymphocytes % (Manual) Nucleated RBC % Seg Neutrophils # Man Lymphocytes # (Manual) Haptoglobin PT INR Fibrinogen Lupus Anticoagulant LA PTT Baseline POC ABG pH POC ABG pCO2 POC ABG pO2 Sodium Potassium Chloride Carbon Dioxide BUN Creatinine Glucose POC Glucose 52 L 43 L Lactic Acid Uric Acid Calcium Phosphorus Iron TIBC Erythropoietin Ferritin Total Bilirubin Direct Bilirubin AST ALT Alkaline Phosphatase Lactate Dehydrogenase C-Reactive Protein Serum Total Protein 5.6 L Total Protein Albumin 2.2 L Fxztf-4-Veqvjwutp 0.5 H Abnorm Protein Band 1 1.4 H PEP Interpretation see below H Crossmatch 10/13/16 10/14/16 10/14/16 23:18 03:00 03:00 WBC RBC Hgb Hct MCV MCHC RDW Plt Count Seg Neuts % (Manual) Lymphocytes % (Manual) Nucleated RBC % Seg Neutrophils # Man Lymphocytes # (Manual) Haptoglobin PT INR Fibrinogen Lupus Anticoagulant see below H LA PTT Baseline 55 H POC ABG pH POC ABG pCO2 POC ABG pO2 Sodium Potassium Chloride Carbon Dioxide BUN Creatinine Glucose POC Glucose 113 H Lactic Acid Uric Acid Calcium Phosphorus Iron TIBC Erythropoietin Ferritin Total Bilirubin Direct Bilirubin AST ALT Alkaline Phosphatase Lactate Dehydrogenase 406 H C-Reactive Protein Serum Total Protein Total Protein Albumin Qvqvp-5-Ocaiwtnrr Abnorm Protein Band 1 PEP Interpretation Crossmatch 10/14/16 10/14/16 10/14/16 03:00 03:00 04:34 WBC 1.3 L* RBC 2.33 L Hgb 7.3 L Hct 21.7 L MCV MCHC RDW 19.8 H Plt Count 99 L Seg Neuts % (Manual) Lymphocytes % (Manual) 3.0 L Nucleated RBC % Seg Neutrophils # Man 0.9 L Lymphocytes # (Manual) 0.0 L Haptoglobin PT INR Fibrinogen Lupus Anticoagulant LA PTT Baseline POC ABG pH POC ABG pCO2 POC ABG pO2 Sodium Potassium Chloride Carbon Dioxide 18 L BUN 73 H Creatinine 9.8 H Glucose 59 L POC Glucose Lactic Acid Uric Acid 8.0 H Calcium 8.2 L Phosphorus 6.60 H Iron 13 L TIBC 160 L Erythropoietin Ferritin Total Bilirubin Direct Bilirubin AST ALT Alkaline Phosphatase Lactate Dehydrogenase C-Reactive Protein Serum Total Protein Total Protein Albumin Pdqri-8-Lgceomtzl Abnorm Protein Band 1 PEP Interpretation Crossmatch 10/14/16 10/14/16 10/14/16 05:27 06:29 07:34 WBC RBC Hgb Hct MCV MCHC RDW Plt Count Seg Neuts % (Manual) Lymphocytes % (Manual) Nucleated RBC % Seg Neutrophils # Man Lymphocytes # (Manual) Haptoglobin PT INR Fibrinogen Lupus Anticoagulant LA PTT Baseline POC ABG pH POC ABG pCO2 POC ABG pO2 Sodium Potassium Chloride Carbon Dioxide BUN Creatinine Glucose POC Glucose < 40 L 63 L < 40 L Lactic Acid Uric Acid Calcium Phosphorus Iron TIBC Erythropoietin Ferritin Total Bilirubin Direct Bilirubin AST ALT Alkaline Phosphatase Lactate Dehydrogenase C-Reactive Protein Serum Total Protein Total Protein Albumin Mrncv-1-Oltzdwwfz Abnorm Protein Band 1 PEP Interpretation Crossmatch 10/14/16 10/14/16 10/14/16 09:58 09:58 09:58 WBC RBC Hgb Hct MCV MCHC RDW Plt Count Seg Neuts % (Manual) Lymphocytes % (Manual) Nucleated RBC % Seg Neutrophils # Man Lymphocytes # (Manual) Haptoglobin 218 H PT INR Fibrinogen 557 H Lupus Anticoagulant LA PTT Baseline POC ABG pH POC ABG pCO2 POC ABG pO2 Sodium Potassium Chloride Carbon Dioxide BUN Creatinine Glucose POC Glucose Lactic Acid Uric Acid Calcium Phosphorus Iron TIBC Erythropoietin Ferritin Total Bilirubin 1.30 H Direct Bilirubin 1.1 H AST ALT Alkaline Phosphatase Lactate Dehydrogenase C-Reactive Protein Serum Total Protein Total Protein Albumin Tiscu-4-Xabsiyyoy Abnorm Protein Band 1 PEP Interpretation Crossmatch 10/14/16 10/14/16 10/14/16 10:57 11:15 12:52 WBC RBC Hgb Hct MCV MCHC RDW Plt Count Seg Neuts % (Manual) Lymphocytes % (Manual) Nucleated RBC % Seg Neutrophils # Man Lymphocytes # (Manual) Haptoglobin PT INR Fibrinogen Lupus Anticoagulant LA PTT Baseline POC ABG pH POC ABG pCO2 POC ABG pO2 Sodium Potassium Chloride Carbon Dioxide BUN Creatinine Glucose POC Glucose < 40 L < 40 L Lactic Acid 9.60 H* Uric Acid Calcium Phosphorus Iron TIBC Erythropoietin Ferritin Total Bilirubin Direct Bilirubin AST ALT Alkaline Phosphatase Lactate Dehydrogenase C-Reactive Protein Serum Total Protein Total Protein Albumin Xwrfd-5-Vfkifgtzj Abnorm Protein Band 1 PEP Interpretation Crossmatch 10/14/16 10/14/16 10/14/16 12:52 13:17 14:12 WBC RBC Hgb Hct MCV MCHC RDW Plt Count Seg Neuts % (Manual) Lymphocytes % (Manual) Nucleated RBC % Seg Neutrophils # Man Lymphocytes # (Manual) Haptoglobin PT INR Fibrinogen Lupus Anticoagulant LA PTT Baseline POC ABG pH POC ABG pCO2 POC ABG pO2 Sodium Potassium Chloride Carbon Dioxide BUN Creatinine Glucose POC Glucose < 40 L < 40 L Lactic Acid Uric Acid Calcium Phosphorus Iron TIBC Erythropoietin Ferritin Total Bilirubin Direct Bilirubin AST ALT Alkaline Phosphatase Lactate Dehydrogenase C-Reactive Protein 40.40 H Serum Total Protein Total Protein Albumin Mdtzd-3-Pwwmxtmix Abnorm Protein Band 1 PEP Interpretation Crossmatch 10/14/16 10/14/16 10/14/16 15:02 15:33 15:33 WBC RBC Hgb Hct MCV MCHC RDW Plt Count Seg Neuts % (Manual) Lymphocytes % (Manual) Nucleated RBC % Seg Neutrophils # Man Lymphocytes # (Manual) Haptoglobin PT INR Fibrinogen Lupus Anticoagulant LA PTT Baseline POC ABG pH POC ABG pCO2 POC ABG pO2 Sodium Potassium Chloride Carbon Dioxide BUN Creatinine Glucose 19 L* POC Glucose < 40 L Lactic Acid 11.60 H* Uric Acid Calcium Phosphorus Iron TIBC Erythropoietin Ferritin Total Bilirubin Direct Bilirubin AST ALT Alkaline Phosphatase Lactate Dehydrogenase C-Reactive Protein Serum Total Protein Total Protein Albumin Micxv-0-Qycrldbbs Abnorm Protein Band 1 PEP Interpretation Crossmatch 10/14/16 10/14/16 10/14/16 17:14 18:03 21:25 WBC RBC Hgb Hct MCV MCHC RDW Plt Count Seg Neuts % (Manual) Lymphocytes % (Manual) Nucleated RBC % Seg Neutrophils # Man Lymphocytes # (Manual) Haptoglobin PT 28.9 H INR 2.71 H Fibrinogen Lupus Anticoagulant LA PTT Baseline POC ABG pH POC ABG pCO2 POC ABG pO2 Sodium Potassium Chloride Carbon Dioxide BUN Creatinine Glucose POC Glucose < 40 L 57 L Lactic Acid Uric Acid Calcium Phosphorus Iron TIBC Erythropoietin Ferritin Total Bilirubin Direct Bilirubin AST ALT Alkaline Phosphatase Lactate Dehydrogenase C-Reactive Protein Serum Total Protein Total Protein Albumin Yjsqd-5-Nqnjguxvz Abnorm Protein Band 1 PEP Interpretation Crossmatch 10/15/16 10/15/16 10/15/16 05:32 05:35 05:35 WBC RBC 2.62 L Hgb 8.1 L Hct 25.8 L MCV 98 H D MCHC 31 L RDW 21.2 H Plt Count 61 L Seg Neuts % (Manual) 27.0 L Lymphocytes % (Manual) 10.0 L Nucleated RBC % 2.0 H Seg Neutrophils # Man Lymphocytes # (Manual) 0.8 L Haptoglobin PT INR Fibrinogen Lupus Anticoagulant LA PTT Baseline POC ABG pH POC ABG pCO2 POC ABG pO2 Sodium Potassium Chloride Carbon Dioxide BUN Creatinine Glucose POC Glucose < 40 L Lactic Acid Uric Acid Calcium Phosphorus Iron TIBC Erythropoietin Ferritin Total Bilirubin Direct Bilirubin AST ALT Alkaline Phosphatase Lactate Dehydrogenase 3871 H C-Reactive Protein Serum Total Protein Total Protein Albumin Jqfdk-7-Kcfadpabu Abnorm Protein Band 1 PEP Interpretation Crossmatch 10/15/16 10/15/16 10/15/16 05:35 05:35 05:35 WBC RBC Hgb Hct MCV MCHC RDW Plt Count Seg Neuts % (Manual) Lymphocytes % (Manual) Nucleated RBC % Seg Neutrophils # Man Lymphocytes # (Manual) Haptoglobin PT INR Fibrinogen Lupus Anticoagulant LA PTT Baseline POC ABG pH POC ABG pCO2 POC ABG pO2 Sodium 136 L Potassium 5.3 H D Chloride 91.4 L Carbon Dioxide 6 L* D BUN 57 H Creatinine 7.1 H Glucose 11 L* POC Glucose Lactic Acid 13.60 H* Uric Acid Calcium 7.7 L Phosphorus 10.10 H D Iron TIBC 166 L Erythropoietin Ferritin 9562.0 H Total Bilirubin Direct Bilirubin AST ALT Alkaline Phosphatase Lactate Dehydrogenase C-Reactive Protein Serum Total Protein Total Protein Albumin Udohv-2-Flxuuexgf Abnorm Protein Band 1 PEP Interpretation Crossmatch 10/15/16 10/15/16 10/15/16 05:51 06:22 06:52 WBC RBC Hgb Hct MCV MCHC RDW Plt Count Seg Neuts % (Manual) Lymphocytes % (Manual) Nucleated RBC % Seg Neutrophils # Man Lymphocytes # (Manual) Haptoglobin PT INR Fibrinogen Lupus Anticoagulant LA PTT Baseline POC ABG pH 7.189 L POC ABG pCO2 28.9 L POC ABG pO2 Sodium Potassium Chloride Carbon Dioxide BUN Creatinine Glucose POC Glucose 59 L 111 H Lactic Acid Uric Acid Calcium Phosphorus Iron TIBC Erythropoietin Ferritin Total Bilirubin Direct Bilirubin AST ALT Alkaline Phosphatase Lactate Dehydrogenase C-Reactive Protein Serum Total Protein Total Protein Albumin Vluat-7-Mvnncpcme Abnorm Protein Band 1 PEP Interpretation Crossmatch 10/15/16 10/15/16 10/15/16 08:00 09:57 11:42 WBC RBC Hgb Hct MCV MCHC RDW Plt Count Seg Neuts % (Manual) Lymphocytes % (Manual) Nucleated RBC % Seg Neutrophils # Man Lymphocytes # (Manual) Haptoglobin PT INR Fibrinogen Lupus Anticoagulant LA PTT Baseline POC ABG pH POC ABG pCO2 POC ABG pO2 Sodium Potassium Chloride Carbon Dioxide BUN Creatinine Glucose POC Glucose 63 L 143 H 203 H Lactic Acid Uric Acid Calcium Phosphorus Iron TIBC Erythropoietin Ferritin Total Bilirubin Direct Bilirubin AST ALT Alkaline Phosphatase Lactate Dehydrogenase C-Reactive Protein Serum Total Protein Total Protein Albumin Toiap-1-Ihnnpxvnl Abnorm Protein Band 1 PEP Interpretation Crossmatch 10/15/16 10/15/16 10/15/16 12:00 12:00 13:00 WBC RBC Hgb Hct MCV MCHC RDW Plt Count Seg Neuts % (Manual) Lymphocytes % (Manual) Nucleated RBC % Seg Neutrophils # Man Lymphocytes # (Manual) Haptoglobin <15 L PT INR Fibrinogen Lupus Anticoagulant LA PTT Baseline POC ABG pH POC ABG pCO2 POC ABG pO2 Sodium Potassium Chloride Carbon Dioxide BUN Creatinine Glucose POC Glucose 136 H Lactic Acid 16.30 H* Uric Acid Calcium Phosphorus Iron TIBC Erythropoietin Ferritin Total Bilirubin Direct Bilirubin AST ALT Alkaline Phosphatase Lactate Dehydrogenase C-Reactive Protein Serum Total Protein Total Protein Albumin Wbsxg-1-Sdiblveie Abnorm Protein Band 1 PEP Interpretation Crossmatch 10/15/16 10/15/16 10/15/16 14:06 15:15 16:23 WBC RBC Hgb Hct MCV MCHC RDW Plt Count Seg Neuts % (Manual) Lymphocytes % (Manual) Nucleated RBC % Seg Neutrophils # Man Lymphocytes # (Manual) Haptoglobin PT INR Fibrinogen Lupus Anticoagulant LA PTT Baseline POC ABG pH POC ABG pCO2 POC ABG pO2 Sodium Potassium Chloride Carbon Dioxide BUN Creatinine Glucose POC Glucose 132 H 64 L Lactic Acid 20.40 H* Uric Acid Calcium Phosphorus Iron TIBC Erythropoietin Ferritin Total Bilirubin Direct Bilirubin AST ALT Alkaline Phosphatase Lactate Dehydrogenase C-Reactive Protein Serum Total Protein Total Protein Albumin Egpxb-4-Fgqmruipp Abnorm Protein Band 1 PEP Interpretation Crossmatch 10/15/16 10/15/16 10/15/16 16:40 17:00 17:10 WBC RBC Hgb Hct MCV MCHC RDW Plt Count Seg Neuts % (Manual) Lymphocytes % (Manual) Nucleated RBC % Seg Neutrophils # Man Lymphocytes # (Manual) Haptoglobin PT INR Fibrinogen Lupus Anticoagulant LA PTT Baseline POC ABG pH 7.323 L POC ABG pCO2 25.8 L POC ABG pO2 135 H Sodium Potassium Chloride Carbon Dioxide BUN Creatinine Glucose POC Glucose 159 H Lactic Acid 20.20 H* Uric Acid Calcium Phosphorus Iron TIBC Erythropoietin Ferritin Total Bilirubin Direct Bilirubin AST ALT Alkaline Phosphatase Lactate Dehydrogenase C-Reactive Protein Serum Total Protein Total Protein Albumin Gaihl-3-Vcitcrrmv Abnorm Protein Band 1 PEP Interpretation Crossmatch 10/15/16 10/15/16 10/15/16 17:46 17:53 18:45 WBC RBC Hgb Hct MCV MCHC RDW Plt Count Seg Neuts % (Manual) Lymphocytes % (Manual) Nucleated RBC % Seg Neutrophils # Man Lymphocytes # (Manual) Haptoglobin PT INR Fibrinogen Lupus Anticoagulant LA PTT Baseline POC ABG pH POC ABG pCO2 POC ABG pO2 Sodium Potassium Chloride Carbon Dioxide BUN Creatinine Glucose POC Glucose 126 H 143 H Lactic Acid 21.40 H* Uric Acid Calcium Phosphorus Iron TIBC Erythropoietin Ferritin Total Bilirubin Direct Bilirubin AST ALT Alkaline Phosphatase Lactate Dehydrogenase C-Reactive Protein Serum Total Protein Total Protein Albumin Xfxlf-0-Npexuvnzv Abnorm Protein Band 1 PEP Interpretation Crossmatch 10/15/16 10/15/16 10/16/16 20:03 22:59 00:06 WBC RBC Hgb Hct MCV MCHC RDW Plt Count Seg Neuts % (Manual) Lymphocytes % (Manual) Nucleated RBC % Seg Neutrophils # Man Lymphocytes # (Manual) Haptoglobin PT INR Fibrinogen Lupus Anticoagulant LA PTT Baseline POC ABG pH POC ABG pCO2 POC ABG pO2 Sodium Potassium Chloride Carbon Dioxide BUN Creatinine Glucose POC Glucose 66 L 53 L 126 H Lactic Acid Uric Acid Calcium Phosphorus Iron TIBC Erythropoietin Ferritin Total Bilirubin Direct Bilirubin AST ALT Alkaline Phosphatase Lactate Dehydrogenase C-Reactive Protein Serum Total Protein Total Protein Albumin Htwob-5-Cjzhjssqb Abnorm Protein Band 1 PEP Interpretation Crossmatch 10/16/16 10/16/16 10/16/16 01:03 03:55 04:00 WBC RBC Hgb Hct MCV MCHC RDW Plt Count Seg Neuts % (Manual) Lymphocytes % (Manual) Nucleated RBC % Seg Neutrophils # Man Lymphocytes # (Manual) Haptoglobin PT INR Fibrinogen Lupus Anticoagulant LA PTT Baseline POC ABG pH POC ABG pCO2 POC ABG pO2 Sodium Potassium Chloride Carbon Dioxide BUN Creatinine Glucose POC Glucose 107 H 260 H Lactic Acid 18.00 H* Uric Acid Calcium Phosphorus Iron TIBC Erythropoietin Ferritin Total Bilirubin Direct Bilirubin AST ALT Alkaline Phosphatase Lactate Dehydrogenase C-Reactive Protein Serum Total Protein Total Protein Albumin Gslak-4-Zehxjgbnm Abnorm Protein Band 1 PEP Interpretation Crossmatch 10/16/16 10/16/16 10/16/16 04:03 07:58 08:34 WBC RBC Hgb Hct MCV MCHC RDW Plt Count Seg Neuts % (Manual) Lymphocytes % (Manual) Nucleated RBC % Seg Neutrophils # Man Lymphocytes # (Manual) Haptoglobin PT INR Fibrinogen Lupus Anticoagulant LA PTT Baseline POC ABG pH 7.527 H POC ABG pCO2 32.9 L POC ABG pO2 119 H Sodium Potassium Chloride Carbon Dioxide BUN Creatinine Glucose POC Glucose 120 H 66 L Lactic Acid Uric Acid Calcium Phosphorus Iron TIBC Erythropoietin Ferritin Total Bilirubin Direct Bilirubin AST ALT Alkaline Phosphatase Lactate Dehydrogenase C-Reactive Protein Serum Total Protein Total Protein Albumin Vghcd-6-Adgpcntmo Abnorm Protein Band 1 PEP Interpretation Crossmatch 10/16/16 10/16/16 10/16/16 09:13 10:06 10:57 WBC RBC Hgb Hct MCV MCHC RDW Plt Count Seg Neuts % (Manual) Lymphocytes % (Manual) Nucleated RBC % Seg Neutrophils # Man Lymphocytes # (Manual) Haptoglobin PT INR Fibrinogen Lupus Anticoagulant LA PTT Baseline POC ABG pH POC ABG pCO2 POC ABG pO2 Sodium Potassium Chloride Carbon Dioxide BUN Creatinine Glucose POC Glucose 147 H 137 H 140 H Lactic Acid Uric Acid Calcium Phosphorus Iron TIBC Erythropoietin Ferritin Total Bilirubin Direct Bilirubin AST ALT Alkaline Phosphatase Lactate Dehydrogenase C-Reactive Protein Serum Total Protein Total Protein Albumin Lrwtd-8-Gakxjnxjp Abnorm Protein Band 1 PEP Interpretation Crossmatch 10/16/16 10/16/16 10/16/16 11:15 11:15 11:15 WBC 25.8 H RBC 2.30 L Hgb 7.0 L Hct 22.3 L MCV 97 H MCHC 31 L RDW 21.2 H Plt Count 42 L Seg Neuts % (Manual) Lymphocytes % (Manual) 3.0 L Nucleated RBC % 2.0 H Seg Neutrophils # Man 11.1 H Lymphocytes # (Manual) 0.8 L Haptoglobin PT INR Fibrinogen Lupus Anticoagulant LA PTT Baseline POC ABG pH POC ABG pCO2 POC ABG pO2 Sodium Potassium Chloride 81.7 L Carbon Dioxide 13 L D BUN 61 H Creatinine 6.2 H Glucose 171 H POC Glucose Lactic Acid 22.70 H* Uric Acid Calcium 7.1 L Phosphorus 9.10 H Iron TIBC Erythropoietin Ferritin Total Bilirubin Direct Bilirubin AST ALT Alkaline Phosphatase Lactate Dehydrogenase C-Reactive Protein Serum Total Protein Total Protein Albumin Mkorb-0-Oooinbvbb Abnorm Protein Band 1 PEP Interpretation Crossmatch 10/16/16 10/16/16 10/16/16 15:10 15:50 18:11 WBC RBC Hgb Hct MCV MCHC RDW Plt Count Seg Neuts % (Manual) Lymphocytes % (Manual) Nucleated RBC % Seg Neutrophils # Man Lymphocytes # (Manual) Haptoglobin PT INR Fibrinogen Lupus Anticoagulant LA PTT Baseline POC ABG pH POC ABG pCO2 POC ABG pO2 Sodium Potassium Chloride Carbon Dioxide BUN Creatinine Glucose POC Glucose 47 L 164 H 58 L Lactic Acid Uric Acid Calcium Phosphorus Iron TIBC Erythropoietin Ferritin Total Bilirubin Direct Bilirubin AST ALT Alkaline Phosphatase Lactate Dehydrogenase C-Reactive Protein Serum Total Protein Total Protein Albumin Haqmw-1-Cbjppqnyt Abnorm Protein Band 1 PEP Interpretation Crossmatch 10/16/16 10/16/16 10/17/16 18:26 21:06 00:06 WBC RBC Hgb Hct MCV MCHC RDW Plt Count Seg Neuts % (Manual) Lymphocytes % (Manual) Nucleated RBC % Seg Neutrophils # Man Lymphocytes # (Manual) Haptoglobin PT INR Fibrinogen Lupus Anticoagulant LA PTT Baseline POC ABG pH POC ABG pCO2 POC ABG pO2 489 H Sodium Potassium Chloride Carbon Dioxide BUN Creatinine Glucose POC Glucose 52 L 120 H Lactic Acid Uric Acid Calcium Phosphorus Iron TIBC Erythropoietin Ferritin Total Bilirubin Direct Bilirubin AST ALT Alkaline Phosphatase Lactate Dehydrogenase C-Reactive Protein Serum Total Protein Total Protein Albumin Qrjwl-0-Okscooubr Abnorm Protein Band 1 PEP Interpretation Crossmatch 10/17/16 10/17/16 10/17/16 04:55 04:55 05:04 WBC 25.5 H RBC 2.23 L Hgb 6.6 L Hct 21.2 L MCV 95 H MCHC 31 L RDW 20.5 H Plt Count 35 L Seg Neuts % (Manual) 79.0 H Lymphocytes % (Manual) 0 L Nucleated RBC % Seg Neutrophils # Man 20.1 H Lymphocytes # (Manual) 0.0 L Haptoglobin PT INR Fibrinogen Lupus Anticoagulant LA PTT Baseline POC ABG pH POC ABG pCO2 27.2 L POC ABG pO2 162 H Sodium Potassium Chloride 91.5 L Carbon Dioxide 16 L BUN 45 H Creatinine 4.5 H Glucose 103 H POC Glucose Lactic Acid Uric Acid Calcium 6.9 L Phosphorus 5.80 H D Iron TIBC Erythropoietin Ferritin Total Bilirubin Direct Bilirubin AST ALT Alkaline Phosphatase Lactate Dehydrogenase C-Reactive Protein Serum Total Protein Total Protein Albumin Gjixb-9-Amyznwqrw Abnorm Protein Band 1 PEP Interpretation Crossmatch 10/17/16 10/17/16 10/17/16 07:59 09:04 10:04 WBC RBC Hgb Hct MCV MCHC RDW Plt Count Seg Neuts % (Manual) Lymphocytes % (Manual) Nucleated RBC % Seg Neutrophils # Man Lymphocytes # (Manual) Haptoglobin PT INR Fibrinogen Lupus Anticoagulant LA PTT Baseline POC ABG pH POC ABG pCO2 POC ABG pO2 Sodium Potassium Chloride Carbon Dioxide BUN Creatinine Glucose POC Glucose 65 L 118 H Lactic Acid Uric Acid Calcium Phosphorus Iron TIBC Erythropoietin Ferritin Total Bilirubin Direct Bilirubin AST ALT Alkaline Phosphatase Lactate Dehydrogenase C-Reactive Protein Serum Total Protein Total Protein Albumin Jlxzd-2-Djnecuorz Abnorm Protein Band 1 PEP Interpretation Crossmatch See Detail 10/17/16 10/17/16 10/17/16 11:52 13:08 15:42 WBC RBC Hgb Hct MCV MCHC RDW Plt Count Seg Neuts % (Manual) Lymphocytes % (Manual) Nucleated RBC % Seg Neutrophils # Man Lymphocytes # (Manual) Haptoglobin PT INR Fibrinogen Lupus Anticoagulant LA PTT Baseline POC ABG pH POC ABG pCO2 POC ABG pO2 Sodium Potassium Chloride Carbon Dioxide BUN Creatinine Glucose POC Glucose 125 H 106 H 55 L Lactic Acid Uric Acid Calcium Phosphorus Iron TIBC Erythropoietin Ferritin Total Bilirubin Direct Bilirubin AST ALT Alkaline Phosphatase Lactate Dehydrogenase C-Reactive Protein Serum Total Protein Total Protein Albumin Ltmwc-6-Lgsiknvgj Abnorm Protein Band 1 PEP Interpretation Crossmatch 10/17/16 10/17/16 10/17/16 17:39 20:37 21:02 WBC RBC Hgb Hct MCV MCHC RDW Plt Count Seg Neuts % (Manual) Lymphocytes % (Manual) Nucleated RBC % Seg Neutrophils # Man Lymphocytes # (Manual) Haptoglobin PT INR Fibrinogen Lupus Anticoagulant LA PTT Baseline POC ABG pH POC ABG pCO2 28.2 L POC ABG pO2 Sodium Potassium Chloride Carbon Dioxide BUN Creatinine Glucose POC Glucose < 40 L 106 H Lactic Acid Uric Acid Calcium Phosphorus Iron TIBC Erythropoietin Ferritin Total Bilirubin Direct Bilirubin AST ALT Alkaline Phosphatase Lactate Dehydrogenase C-Reactive Protein Serum Total Protein Total Protein Albumin Ljimo-2-Rmpillcsd Abnorm Protein Band 1 PEP Interpretation Crossmatch 10/17/16 10/17/16 10/18/16 22:18 23:14 00:28 WBC RBC Hgb Hct MCV MCHC RDW Plt Count Seg Neuts % (Manual) Lymphocytes % (Manual) Nucleated RBC % Seg Neutrophils # Man Lymphocytes # (Manual) Haptoglobin PT INR Fibrinogen Lupus Anticoagulant LA PTT Baseline POC ABG pH POC ABG pCO2 POC ABG pO2 Sodium Potassium Chloride Carbon Dioxide BUN Creatinine Glucose POC Glucose 111 H 118 H 112 H Lactic Acid Uric Acid Calcium Phosphorus Iron TIBC Erythropoietin Ferritin Total Bilirubin Direct Bilirubin AST ALT Alkaline Phosphatase Lactate Dehydrogenase C-Reactive Protein Serum Total Protein Total Protein Albumin Duczw-4-Iwkjpovef Abnorm Protein Band 1 PEP Interpretation Crossmatch 10/18/16 10/18/16 10/18/16 05:00 05:00 05:15 WBC 27.3 H RBC 2.75 L Hgb 7.9 L Hct 25.3 L MCV MCHC 31 L RDW 20.7 H Plt Count 31 L Seg Neuts % (Manual) 87.0 H Lymphocytes % (Manual) 1.0 L Nucleated RBC % 1.0 H Seg Neutrophils # Man 23.8 H Lymphocytes # (Manual) 0.3 L Haptoglobin PT INR Fibrinogen Lupus Anticoagulant LA PTT Baseline POC ABG pH 7.466 H POC ABG pCO2 25.1 L POC ABG pO2 Sodium Potassium Chloride 88.7 L Carbon Dioxide 18 L BUN 66 H Creatinine 4.7 H Glucose POC Glucose Lactic Acid Uric Acid Calcium 6.1 L Phosphorus 7.30 H D Iron TIBC Erythropoietin Ferritin Total Bilirubin Direct Bilirubin AST ALT Alkaline Phosphatase Lactate Dehydrogenase C-Reactive Protein Serum Total Protein Total Protein Albumin Kxldb-0-Udpeuxhex Abnorm Protein Band 1 PEP Interpretation Crossmatch 10/18/16 10/18/16 10/18/16 07:15 07:44 09:07 WBC RBC Hgb Hct MCV MCHC RDW Plt Count Seg Neuts % (Manual) Lymphocytes % (Manual) Nucleated RBC % Seg Neutrophils # Man Lymphocytes # (Manual) Haptoglobin PT INR Fibrinogen Lupus Anticoagulant LA PTT Baseline POC ABG pH POC ABG pCO2 POC ABG pO2 Sodium Potassium Chloride Carbon Dioxide BUN Creatinine Glucose POC Glucose 64 L 156 H 117 H Lactic Acid Uric Acid Calcium Phosphorus Iron TIBC Erythropoietin Ferritin Total Bilirubin Direct Bilirubin AST ALT Alkaline Phosphatase Lactate Dehydrogenase C-Reactive Protein Serum Total Protein Total Protein Albumin Vasoo-5-Bjrwvevoo Abnorm Protein Band 1 PEP Interpretation Crossmatch 10/18/16 10/18/16 10/18/16 09:15 14:00 18:21 WBC RBC Hgb Hct MCV MCHC RDW Plt Count Seg Neuts % (Manual) Lymphocytes % (Manual) Nucleated RBC % Seg Neutrophils # Man Lymphocytes # (Manual) Haptoglobin PT INR Fibrinogen Lupus Anticoagulant LA PTT Baseline POC ABG pH POC ABG pCO2 POC ABG pO2 Sodium Potassium Chloride Carbon Dioxide BUN Creatinine Glucose POC Glucose 106 H 112 H Lactic Acid 14.30 H* Uric Acid Calcium Phosphorus Iron TIBC Erythropoietin Ferritin Total Bilirubin Direct Bilirubin AST ALT Alkaline Phosphatase Lactate Dehydrogenase C-Reactive Protein Serum Total Protein Total Protein Albumin Qacxh-9-Qnvkkchuc Abnorm Protein Band 1 PEP Interpretation Crossmatch 10/18/16 10/18/16 10/18/16 19:58 20:55 22:11 WBC RBC Hgb Hct MCV MCHC RDW Plt Count Seg Neuts % (Manual) Lymphocytes % (Manual) Nucleated RBC % Seg Neutrophils # Man Lymphocytes # (Manual) Haptoglobin PT INR Fibrinogen Lupus Anticoagulant LA PTT Baseline POC ABG pH POC ABG pCO2 POC ABG pO2 Sodium Potassium Chloride Carbon Dioxide BUN Creatinine Glucose POC Glucose 127 H 125 H 159 H Lactic Acid Uric Acid Calcium Phosphorus Iron TIBC Erythropoietin Ferritin Total Bilirubin Direct Bilirubin AST ALT Alkaline Phosphatase Lactate Dehydrogenase C-Reactive Protein Serum Total Protein Total Protein Albumin Glakg-2-Dziebdlrb Abnorm Protein Band 1 PEP Interpretation Crossmatch 10/18/16 10/18/16 10/19/16 23:11 23:57 01:06 WBC RBC Hgb Hct MCV MCHC RDW Plt Count Seg Neuts % (Manual) Lymphocytes % (Manual) Nucleated RBC % Seg Neutrophils # Man Lymphocytes # (Manual) Haptoglobin PT INR Fibrinogen Lupus Anticoagulant LA PTT Baseline POC ABG pH POC ABG pCO2 POC ABG pO2 Sodium Potassium Chloride Carbon Dioxide BUN Creatinine Glucose POC Glucose 122 H 137 H 162 H Lactic Acid Uric Acid Calcium Phosphorus Iron TIBC Erythropoietin Ferritin Total Bilirubin Direct Bilirubin AST ALT Alkaline Phosphatase Lactate Dehydrogenase C-Reactive Protein Serum Total Protein Total Protein Albumin Fvygz-4-Umsltjpig Abnorm Protein Band 1 PEP Interpretation Crossmatch 10/19/16 10/19/16 10/19/16 01:59 03:07 04:10 WBC RBC Hgb Hct MCV MCHC RDW Plt Count Seg Neuts % (Manual) Lymphocytes % (Manual) Nucleated RBC % Seg Neutrophils # Man Lymphocytes # (Manual) Haptoglobin PT INR Fibrinogen Lupus Anticoagulant LA PTT Baseline POC ABG pH POC ABG pCO2 POC ABG pO2 Sodium Potassium Chloride Carbon Dioxide BUN Creatinine Glucose POC Glucose 154 H 178 H 186 H Lactic Acid Uric Acid Calcium Phosphorus Iron TIBC Erythropoietin Ferritin Total Bilirubin Direct Bilirubin AST ALT Alkaline Phosphatase Lactate Dehydrogenase C-Reactive Protein Serum Total Protein Total Protein Albumin Opagw-0-Srbprecoz Abnorm Protein Band 1 PEP Interpretation Crossmatch 10/19/16 10/19/16 10/19/16 05:14 05:15 05:47 WBC RBC Hgb Hct MCV MCHC RDW Plt Count Seg Neuts % (Manual) Lymphocytes % (Manual) Nucleated RBC % Seg Neutrophils # Man Lymphocytes # (Manual) Haptoglobin PT INR Fibrinogen Lupus Anticoagulant LA PTT Baseline POC ABG pH 7.581 H POC ABG pCO2 22.9 L POC ABG pO2 58 L Sodium Potassium Chloride Carbon Dioxide BUN Creatinine Glucose POC Glucose 197 H 204 H Lactic Acid Uric Acid Calcium Phosphorus Iron TIBC Erythropoietin Ferritin Total Bilirubin Direct Bilirubin AST ALT Alkaline Phosphatase Lactate Dehydrogenase C-Reactive Protein Serum Total Protein Total Protein Albumin Lywqr-1-Rjmqgelph Abnorm Protein Band 1 PEP Interpretation Crossmatch 10/19/16 10/19/16 10/19/16 06:00 06:00 07:51 WBC 23.0 H RBC 2.54 L Hgb 7.5 L Hct 23.0 L MCV MCHC RDW 20.7 H Plt Count 25 L Seg Neuts % (Manual) 91.0 H Lymphocytes % (Manual) 2.0 L Nucleated RBC % 1.0 H Seg Neutrophils # Man 20.9 H Lymphocytes # (Manual) 0.5 L Haptoglobin PT INR Fibrinogen Lupus Anticoagulant LA PTT Baseline POC ABG pH POC ABG pCO2 POC ABG pO2 Sodium Potassium Chloride 88.7 L Carbon Dioxide 21 L BUN 70 H Creatinine 3.9 H Glucose 189 H POC Glucose 145 H Lactic Acid Uric Acid Calcium 5.6 L* Phosphorus 6.30 H Iron TIBC Erythropoietin Ferritin Total Bilirubin Direct Bilirubin AST ALT Alkaline Phosphatase Lactate Dehydrogenase C-Reactive Protein Serum Total Protein Total Protein Albumin Cjzwt-1-Mcaaynnze Abnorm Protein Band 1 PEP Interpretation Crossmatch 10/19/16 10/19/16 10/19/16 09:14 10:01 12:14 WBC RBC Hgb Hct MCV MCHC RDW Plt Count Seg Neuts % (Manual) Lymphocytes % (Manual) Nucleated RBC % Seg Neutrophils # Man Lymphocytes # (Manual) Haptoglobin PT INR Fibrinogen Lupus Anticoagulant LA PTT Baseline POC ABG pH POC ABG pCO2 POC ABG pO2 Sodium Potassium Chloride Carbon Dioxide BUN Creatinine Glucose POC Glucose 173 H 153 H 180 H Lactic Acid Uric Acid Calcium Phosphorus Iron TIBC Erythropoietin Ferritin Total Bilirubin Direct Bilirubin AST ALT Alkaline Phosphatase Lactate Dehydrogenase C-Reactive Protein Serum Total Protein Total Protein Albumin Udepb-7-Rcvifdckb Abnorm Protein Band 1 PEP Interpretation Crossmatch 10/19/16 10/19/16 10/19/16 14:15 16:38 20:27 WBC RBC Hgb Hct MCV MCHC RDW Plt Count Seg Neuts % (Manual) Lymphocytes % (Manual) Nucleated RBC % Seg Neutrophils # Man Lymphocytes # (Manual) Haptoglobin PT INR Fibrinogen Lupus Anticoagulant LA PTT Baseline POC ABG pH POC ABG pCO2 POC ABG pO2 Sodium Potassium Chloride Carbon Dioxide BUN Creatinine Glucose POC Glucose 194 H 202 H Lactic Acid Uric Acid Calcium Phosphorus Iron TIBC Erythropoietin 148.2 H Ferritin Total Bilirubin Direct Bilirubin AST ALT Alkaline Phosphatase Lactate Dehydrogenase C-Reactive Protein Serum Total Protein Total Protein Albumin Pfhag-3-Qljrrimcl Abnorm Protein Band 1 PEP Interpretation Crossmatch 10/19/16 10/20/16 10/20/16 23:27 04:06 05:00 WBC RBC Hgb Hct MCV MCHC RDW Plt Count Seg Neuts % (Manual) Lymphocytes % (Manual) Nucleated RBC % Seg Neutrophils # Man Lymphocytes # (Manual) Haptoglobin PT INR Fibrinogen Lupus Anticoagulant LA PTT Baseline POC ABG pH POC ABG pCO2 POC ABG pO2 Sodium Potassium Chloride 88.8 L Carbon Dioxide BUN 93 H Creatinine 4.3 H Glucose 204 H POC Glucose 201 H 200 H Lactic Acid Uric Acid Calcium 5.2 L* Phosphorus Iron TIBC Erythropoietin Ferritin Total Bilirubin Direct Bilirubin AST ALT Alkaline Phosphatase Lactate Dehydrogenase C-Reactive Protein Serum Total Protein Total Protein Albumin Djiwd-1-Liafjjrkk Abnorm Protein Band 1 PEP Interpretation Crossmatch 10/20/16 10/20/16 10/20/16 05:16 06:00 07:43 WBC 24.8 H RBC 2.52 L Hgb 7.4 L Hct 22.9 L MCV MCHC RDW 19.9 H Plt Count 23 L Seg Neuts % (Manual) 97.0 H Lymphocytes % (Manual) 1.0 L Nucleated RBC % 9.0 H Seg Neutrophils # Man 24.1 H Lymphocytes # (Manual) 0.2 L Haptoglobin PT INR Fibrinogen Lupus Anticoagulant LA PTT Baseline POC ABG pH 7.463 H POC ABG pCO2 POC ABG pO2 157 H Sodium Potassium Chloride Carbon Dioxide BUN Creatinine Glucose POC Glucose 192 H Lactic Acid Uric Acid Calcium Phosphorus Iron TIBC Erythropoietin Ferritin Total Bilirubin Direct Bilirubin AST ALT Alkaline Phosphatase Lactate Dehydrogenase C-Reactive Protein Serum Total Protein Total Protein Albumin Mnehb-9-Vltizvbip Abnorm Protein Band 1 PEP Interpretation Crossmatch 05/10/20/16 10/20/16 12:11 15:32 21:23 WBC RBC Hgb Hct MCV MCHC RDW Plt Count Seg Neuts % (Manual) Lymphocytes % (Manual) Nucleated RBC % Seg Neutrophils # Man Lymphocytes # (Manual) Haptoglobin PT INR Fibrinogen Lupus Anticoagulant LA PTT Baseline POC ABG pH POC ABG pCO2 POC ABG pO2 Sodium Potassium Chloride Carbon Dioxide BUN Creatinine Glucose POC Glucose 172 H 216 H 271 H Lactic Acid Uric Acid Calcium Phosphorus Iron TIBC Erythropoietin Ferritin Total Bilirubin Direct Bilirubin AST ALT Alkaline Phosphatase Lactate Dehydrogenase C-Reactive Protein Serum Total Protein Total Protein Albumin Ultnn-1-Wfuczfiek Abnorm Protein Band 1 PEP Interpretation Crossmatch 10/20/16 10/21/16 10/21/16 23:49 03:53 04:58 WBC RBC Hgb Hct MCV MCHC RDW Plt Count Seg Neuts % (Manual) Lymphocytes % (Manual) Nucleated RBC % Seg Neutrophils # Man Lymphocytes # (Manual) Haptoglobin PT INR Fibrinogen Lupus Anticoagulant LA PTT Baseline POC ABG pH 7.459 H POC ABG pCO2 POC ABG pO2 113 H Sodium 136 L Potassium 2.8 L* D Chloride 91.6 L Carbon Dioxide BUN 62 H Creatinine 2.8 H Glucose 236 H POC Glucose 317 H Lactic Acid Uric Acid Calcium 6.2 L D Phosphorus Iron TIBC Erythropoietin Ferritin Total Bilirubin 2.70 H Direct Bilirubin AST 73 H ALT 57 H Alkaline Phosphatase 158 H Lactate Dehydrogenase C-Reactive Protein Serum Total Protein Total Protein 4.9 L Albumin 2.6 L Gvmbw-9-Wghsmxmtf Abnorm Protein Band 1 PEP Interpretation Crossmatch 10/21/16 10/21/16 10/21/16 05:25 07:11 10:30 WBC 28.1 H RBC 2.36 L Hgb 7.0 L Hct 21.6 L MCV MCHC RDW 20.0 H Plt Count 14 L* Seg Neuts % (Manual) 92.0 H Lymphocytes % (Manual) 0 L Nucleated RBC % 5.0 H Seg Neutrophils # Man 25.9 H Lymphocytes # (Manual) 0.0 L Haptoglobin PT INR Fibrinogen Lupus Anticoagulant LA PTT Baseline POC ABG pH POC ABG pCO2 POC ABG pO2 Sodium Potassium Chloride Carbon Dioxide BUN Creatinine Glucose POC Glucose 237 H 206 H Lactic Acid Uric Acid Calcium Phosphorus Iron TIBC Erythropoietin Ferritin Total Bilirubin Direct Bilirubin AST ALT Alkaline Phosphatase Lactate Dehydrogenase C-Reactive Protein Serum Total Protein Total Protein Albumin Chwuy-4-Xdtverkwr Abnorm Protein Band 1 PEP Interpretation Crossmatch 10/21/16 10/21/16 10/21/16 11:25 12:31 16:33 WBC RBC Hgb Hct MCV MCHC RDW Plt Count Seg Neuts % (Manual) Lymphocytes % (Manual) Nucleated RBC % Seg Neutrophils # Man Lymphocytes # (Manual) Haptoglobin PT 49.1 H INR 5.28 H* Fibrinogen Lupus Anticoagulant LA PTT Baseline POC ABG pH POC ABG pCO2 POC ABG pO2 Sodium Potassium Chloride Carbon Dioxide BUN Creatinine Glucose POC Glucose 145 H 151 H Lactic Acid Uric Acid Calcium Phosphorus Iron TIBC Erythropoietin Ferritin Total Bilirubin Direct Bilirubin AST ALT Alkaline Phosphatase Lactate Dehydrogenase C-Reactive Protein Serum Total Protein Total Protein Albumin Reynh-6-Bbrztufhe Abnorm Protein Band 1 PEP Interpretation Crossmatch 10/21/16 10/22/16 10/22/16 19:53 00:00 05:23 WBC RBC Hgb Hct MCV MCHC RDW Plt Count Seg Neuts % (Manual) Lymphocytes % (Manual) Nucleated RBC % Seg Neutrophils # Man Lymphocytes # (Manual) Haptoglobin PT INR Fibrinogen Lupus Anticoagulant LA PTT Baseline POC ABG pH POC ABG pCO2 POC ABG pO2 Sodium Potassium Chloride Carbon Dioxide BUN Creatinine Glucose POC Glucose 170 H 168 H 131 H Lactic Acid Uric Acid Calcium Phosphorus Iron TIBC Erythropoietin Ferritin Total Bilirubin Direct Bilirubin AST ALT Alkaline Phosphatase Lactate Dehydrogenase C-Reactive Protein Serum Total Protein Total Protein Albumin Yenev-0-Zexvtrrjm Abnorm Protein Band 1 PEP Interpretation Crossmatch 10/22/16 10/22/16 10/22/16 05:25 05:35 13:03 WBC RBC Hgb Hct MCV MCHC RDW Plt Count Seg Neuts % (Manual) Lymphocytes % (Manual) Nucleated RBC % Seg Neutrophils # Man Lymphocytes # (Manual) Haptoglobin PT INR Fibrinogen Lupus Anticoagulant LA PTT Baseline POC ABG pH 7.462 H POC ABG pCO2 POC ABG pO2 Sodium 135 L Potassium 3.0 L Chloride 88.5 L Carbon Dioxide BUN 84 H Creatinine 3.4 H Glucose 124 H POC Glucose 164 H Lactic Acid Uric Acid Calcium 5.9 L* Phosphorus Iron TIBC Erythropoietin Ferritin Total Bilirubin 2.00 H Direct Bilirubin AST 85 H ALT Alkaline Phosphatase 199 H Lactate Dehydrogenase C-Reactive Protein Serum Total Protein Total Protein 5.0 L Albumin 2.5 L Nlulw-7-Fsuwfjzod Abnorm Protein Band 1 PEP Interpretation Crossmatch 10/22/16 10/22/16 10/23/16 17:14 23:16 04:47 WBC RBC Hgb Hct MCV MCHC RDW Plt Count Seg Neuts % (Manual) Lymphocytes % (Manual) Nucleated RBC % Seg Neutrophils # Man Lymphocytes # (Manual) Haptoglobin PT INR Fibrinogen Lupus Anticoagulant LA PTT Baseline POC ABG pH 7.476 H POC ABG pCO2 POC ABG pO2 108 H Sodium Potassium Chloride Carbon Dioxide BUN Creatinine Glucose POC Glucose 188 H 167 H Lactic Acid Uric Acid Calcium Phosphorus Iron TIBC Erythropoietin Ferritin Total Bilirubin Direct Bilirubin AST ALT Alkaline Phosphatase Lactate Dehydrogenase C-Reactive Protein Serum Total Protein Total Protein Albumin Slspk-5-Zwyhfwvbv Abnorm Protein Band 1 PEP Interpretation Crossmatch 10/23/16 10/23/16 10/23/16 05:49 07:00 07:12 WBC 24.2 H RBC 2.27 L Hgb 7.0 L Hct 21.1 L MCV MCHC RDW 19.7 H Plt Count 35 L D Seg Neuts % (Manual) Lymphocytes % (Manual) Nucleated RBC % Seg Neutrophils # Man Lymphocytes # (Manual) Haptoglobin PT INR Fibrinogen Lupus Anticoagulant LA PTT Baseline POC ABG pH POC ABG pCO2 POC ABG pO2 Sodium Potassium 3.5 L Chloride 95.7 L Carbon Dioxide BUN 55 H Creatinine 2.7 H Glucose 103 H POC Glucose 106 H Lactic Acid Uric Acid Calcium 7.1 L D Phosphorus Iron TIBC Erythropoietin Ferritin Total Bilirubin Direct Bilirubin AST ALT Alkaline Phosphatase Lactate Dehydrogenase C-Reactive Protein Serum Total Protein Total Protein Albumin Llljb-4-Vdfapepgp Abnorm Protein Band 1 PEP Interpretation Crossmatch 10/24/16 10/24/16 10/24/16 00:12 05:16 07:00 WBC 17.9 H RBC 2.12 L Hgb 6.5 L Hct 19.9 L* MCV MCHC RDW 19.3 H Plt Count 44 L Seg Neuts % (Manual) Lymphocytes % (Manual) Nucleated RBC % Seg Neutrophils # Man Lymphocytes # (Manual) Haptoglobin PT INR Fibrinogen Lupus Anticoagulant LA PTT Baseline POC ABG pH POC ABG pCO2 POC ABG pO2 Sodium Potassium Chloride Carbon Dioxide BUN Creatinine Glucose POC Glucose 116 H 135 H Lactic Acid Uric Acid Calcium Phosphorus Iron TIBC Erythropoietin Ferritin Total Bilirubin Direct Bilirubin AST ALT Alkaline Phosphatase Lactate Dehydrogenase C-Reactive Protein Serum Total Protein Total Protein Albumin Mybmr-0-Xtadmzbva Abnorm Protein Band 1 PEP Interpretation Crossmatch 10/24/16 10/24/16 10/24/16 07:00 11:45 12:12 WBC RBC Hgb Hct MCV MCHC RDW Plt Count Seg Neuts % (Manual) Lymphocytes % (Manual) Nucleated RBC % Seg Neutrophils # Man Lymphocytes # (Manual) Haptoglobin PT INR Fibrinogen Lupus Anticoagulant LA PTT Baseline POC ABG pH POC ABG pCO2 POC ABG pO2 Sodium Potassium Chloride 92.9 L Carbon Dioxide BUN 74 H Creatinine 3.3 H Glucose 136 H POC Glucose 177 H Lactic Acid Uric Acid Calcium 6.6 L Phosphorus Iron TIBC Erythropoietin Ferritin Total Bilirubin 2.10 H Direct Bilirubin AST 68 H ALT Alkaline Phosphatase 224 H Lactate Dehydrogenase C-Reactive Protein Serum Total Protein Total Protein 4.8 L Albumin 2.3 L Gdzxs-4-Fzrexmqtu Abnorm Protein Band 1 PEP Interpretation Crossmatch See Detail 10/24/16 10/24/16 10/24/16 16:30 16:30 17:28 WBC RBC Hgb Hct MCV MCHC RDW Plt Count Seg Neuts % (Manual) Lymphocytes % (Manual) Nucleated RBC % Seg Neutrophils # Man Lymphocytes # (Manual) Haptoglobin PT INR Fibrinogen Lupus Anticoagulant LA PTT Baseline POC ABG pH POC ABG pCO2 POC ABG pO2 Sodium Potassium Chloride Carbon Dioxide BUN Creatinine Glucose POC Glucose 128 H Lactic Acid 3.00 H* Uric Acid Calcium Phosphorus Iron TIBC Erythropoietin Ferritin Total Bilirubin Direct Bilirubin AST ALT Alkaline Phosphatase Lactate Dehydrogenase C-Reactive Protein 7.40 H Serum Total Protein Total Protein Albumin Oepxj-4-Vvxxtgibz Abnorm Protein Band 1 PEP Interpretation Crossmatch 10/24/16 10/24/16 10/25/16 18:40 23:32 05:00 WBC 17.5 H RBC 2.99 L Hgb 9.1 L Hct 26.9 L D MCV MCHC RDW 17.7 H Plt Count 53 L Seg Neuts % (Manual) Lymphocytes % (Manual) Nucleated RBC % Seg Neutrophils # Man Lymphocytes # (Manual) Haptoglobin PT INR Fibrinogen Lupus Anticoagulant LA PTT Baseline POC ABG pH POC ABG pCO2 POC ABG pO2 Sodium Potassium Chloride Carbon Dioxide BUN Creatinine Glucose POC Glucose 140 H Lactic Acid 3.10 H* Uric Acid Calcium Phosphorus Iron TIBC Erythropoietin Ferritin Total Bilirubin Direct Bilirubin AST ALT Alkaline Phosphatase Lactate Dehydrogenase C-Reactive Protein Serum Total Protein Total Protein Albumin Skvxg-2-Gsccmhtww Abnorm Protein Band 1 PEP Interpretation Crossmatch 10/25/16 10/25/16 10/25/16 05:00 05:22 11:58 WBC RBC Hgb Hct MCV MCHC RDW Plt Count Seg Neuts % (Manual) Lymphocytes % (Manual) Nucleated RBC % Seg Neutrophils # Man Lymphocytes # (Manual) Haptoglobin PT INR Fibrinogen Lupus Anticoagulant LA PTT Baseline POC ABG pH POC ABG pCO2 POC ABG pO2 Sodium Potassium Chloride 91.6 L Carbon Dioxide BUN 89 H Creatinine 3.9 H Glucose 150 H POC Glucose 164 H 189 H Lactic Acid Uric Acid Calcium 6.9 L Phosphorus Iron TIBC Erythropoietin Ferritin Total Bilirubin Direct Bilirubin AST ALT Alkaline Phosphatase Lactate Dehydrogenase C-Reactive Protein Serum Total Protein Total Protein Albumin Jqcke-0-Ovrqahmkg Abnorm Protein Band 1 PEP Interpretation Crossmatch 10/25/16 10/25/16 10/26/16 17:56 23:12 04:00 WBC RBC Hgb Hct MCV MCHC RDW Plt Count Seg Neuts % (Manual) Lymphocytes % (Manual) Nucleated RBC % Seg Neutrophils # Man Lymphocytes # (Manual) Haptoglobin PT INR Fibrinogen Lupus Anticoagulant LA PTT Baseline POC ABG pH POC ABG pCO2 POC ABG pO2 Sodium 135 L Potassium Chloride 90.7 L Carbon Dioxide BUN 64 H Creatinine 2.9 H Glucose 132 H POC Glucose 156 H 133 H Lactic Acid Uric Acid Calcium 7.3 L Phosphorus Iron TIBC Erythropoietin Ferritin Total Bilirubin Direct Bilirubin AST ALT Alkaline Phosphatase Lactate Dehydrogenase C-Reactive Protein Serum Total Protein Total Protein Albumin Ffodf-5-Qslqjulae Abnorm Protein Band 1 PEP Interpretation Crossmatch 10/26/16 10/26/16 10/26/16 05:14 06:15 11:51 WBC 18.6 H RBC 3.15 L Hgb 9.6 L Hct 29.0 L MCV MCHC RDW 17.8 H Plt Count 71 L Seg Neuts % (Manual) 85.0 H Lymphocytes % (Manual) 1.0 L Nucleated RBC % Seg Neutrophils # Man 15.8 H Lymphocytes # (Manual) 0.2 L Haptoglobin PT INR Fibrinogen Lupus Anticoagulant LA PTT Baseline POC ABG pH POC ABG pCO2 POC ABG pO2 Sodium Potassium Chloride Carbon Dioxide BUN Creatinine Glucose POC Glucose 130 H 139 H Lactic Acid Uric Acid Calcium Phosphorus Iron TIBC Erythropoietin Ferritin Total Bilirubin Direct Bilirubin AST ALT Alkaline Phosphatase Lactate Dehydrogenase C-Reactive Protein Serum Total Protein Total Protein Albumin Zfuob-1-Qfvpiwzkg Abnorm Protein Band 1 PEP Interpretation Crossmatch 10/26/16 10/26/16 10/27/16 17:25 23:35 04:10 WBC 16.8 H RBC 3.38 L Hgb 10.1 L Hct 31.0 L MCV MCHC RDW 18.0 H Plt Count 77 L Seg Neuts % (Manual) 92.0 H Lymphocytes % (Manual) 1.0 L Nucleated RBC % 1.0 H Seg Neutrophils # Man 15.5 H Lymphocytes # (Manual) 0.2 L Haptoglobin PT INR Fibrinogen Lupus Anticoagulant LA PTT Baseline POC ABG pH POC ABG pCO2 POC ABG pO2 Sodium Potassium Chloride Carbon Dioxide BUN Creatinine Glucose POC Glucose 118 H 145 H Lactic Acid Uric Acid Calcium Phosphorus Iron TIBC Erythropoietin Ferritin Total Bilirubin Direct Bilirubin AST ALT Alkaline Phosphatase Lactate Dehydrogenase C-Reactive Protein Serum Total Protein Total Protein Albumin Kdspj-3-Jcssomyfd Abnorm Protein Band 1 PEP Interpretation Crossmatch 10/27/16 10/27/16 10/27/16 04:10 05:53 08:14 WBC RBC Hgb Hct MCV MCHC RDW Plt Count Seg Neuts % (Manual) Lymphocytes % (Manual) Nucleated RBC % Seg Neutrophils # Man Lymphocytes # (Manual) Haptoglobin PT 23.0 H INR 2.03 H Fibrinogen Lupus Anticoagulant LA PTT Baseline POC ABG pH POC ABG pCO2 POC ABG pO2 Sodium Potassium Chloride 95.5 L Carbon Dioxide BUN 63 H Creatinine 2.8 H Glucose 112 H POC Glucose 127 H Lactic Acid Uric Acid Calcium 7.5 L Phosphorus Iron TIBC Erythropoietin Ferritin Total Bilirubin Direct Bilirubin AST ALT Alkaline Phosphatase Lactate Dehydrogenase C-Reactive Protein Serum Total Protein Total Protein Albumin Feixs-7-Sfveyfcpn Abnorm Protein Band 1 PEP Interpretation Crossmatch 10/27/16 10/27/16 10/27/16 11:56 17:47 23:55 WBC RBC Hgb Hct MCV MCHC RDW Plt Count Seg Neuts % (Manual) Lymphocytes % (Manual) Nucleated RBC % Seg Neutrophils # Man Lymphocytes # (Manual) Haptoglobin PT INR Fibrinogen Lupus Anticoagulant LA PTT Baseline POC ABG pH POC ABG pCO2 POC ABG pO2 Sodium Potassium Chloride Carbon Dioxide BUN Creatinine Glucose POC Glucose 113 H 117 H 142 H Lactic Acid Uric Acid Calcium Phosphorus Iron TIBC Erythropoietin Ferritin Total Bilirubin Direct Bilirubin AST ALT Alkaline Phosphatase Lactate Dehydrogenase C-Reactive Protein Serum Total Protein Total Protein Albumin Lvztl-9-Dptpgshrw Abnorm Protein Band 1 PEP Interpretation Crossmatch 10/28/16 10/28/16 10/28/16 05:45 05:45 11:44 WBC 16.6 H RBC 3.18 L Hgb 9.5 L Hct 29.3 L MCV MCHC RDW 17.6 H Plt Count 83 L Seg Neuts % (Manual) 87.0 H Lymphocytes % (Manual) 3.0 L Nucleated RBC % Seg Neutrophils # Man 14.4 H Lymphocytes # (Manual) 0.5 L Haptoglobin PT INR Fibrinogen Lupus Anticoagulant LA PTT Baseline POC ABG pH POC ABG pCO2 POC ABG pO2 Sodium Potassium Chloride 94.6 L Carbon Dioxide 21 L BUN 90 H Creatinine 3.9 H Glucose 152 H POC Glucose 151 H Lactic Acid Uric Acid Calcium 6.9 L Phosphorus Iron TIBC Erythropoietin Ferritin Total Bilirubin Direct Bilirubin AST ALT Alkaline Phosphatase Lactate Dehydrogenase C-Reactive Protein Serum Total Protein Total Protein Albumin Ykeps-5-Vrkcyxwts Abnorm Protein Band 1 PEP Interpretation Crossmatch 10/28/16 10/28/16 10/29/16 17:31 23:47 04:53 WBC RBC Hgb Hct MCV MCHC RDW Plt Count Seg Neuts % (Manual) Lymphocytes % (Manual) Nucleated RBC % Seg Neutrophils # Man Lymphocytes # (Manual) Haptoglobin PT INR Fibrinogen Lupus Anticoagulant LA PTT Baseline POC ABG pH POC ABG pCO2 POC ABG pO2 Sodium Potassium Chloride Carbon Dioxide BUN Creatinine Glucose POC Glucose 184 H 124 H 153 H Lactic Acid Uric Acid Calcium Phosphorus Iron TIBC Erythropoietin Ferritin Total Bilirubin Direct Bilirubin AST ALT Alkaline Phosphatase Lactate Dehydrogenase C-Reactive Protein Serum Total Protein Total Protein Albumin Mnhsl-5-Cprterpha Abnorm Protein Band 1 PEP Interpretation Crossmatch 10/29/16 10/29/16 10/29/16 06:15 06:15 10:58 WBC 14.1 H RBC 3.15 L Hgb 9.6 L Hct 29.1 L MCV MCHC RDW 17.9 H Plt Count 73 L Seg Neuts % (Manual) 93.0 H Lymphocytes % (Manual) 4.0 L Nucleated RBC % Seg Neutrophils # Man 13.1 H Lymphocytes # (Manual) 0.6 L Haptoglobin PT INR Fibrinogen Lupus Anticoagulant LA PTT Baseline POC ABG pH POC ABG pCO2 POC ABG pO2 Sodium Potassium Chloride Carbon Dioxide BUN 58 H Creatinine 2.7 H Glucose 146 H POC Glucose 134 H Lactic Acid Uric Acid Calcium 7.4 L Phosphorus 5.00 H Iron TIBC Erythropoietin Ferritin Total Bilirubin Direct Bilirubin AST ALT Alkaline Phosphatase Lactate Dehydrogenase C-Reactive Protein Serum Total Protein Total Protein Albumin Iqndd-2-Tkllaqhbq Abnorm Protein Band 1 PEP Interpretation Crossmatch 10/29/16 10/29/16 10/30/16 17:06 23:28 05:16 WBC RBC Hgb Hct MCV MCHC RDW Plt Count Seg Neuts % (Manual) Lymphocytes % (Manual) Nucleated RBC % Seg Neutrophils # Man Lymphocytes # (Manual) Haptoglobin PT INR Fibrinogen Lupus Anticoagulant LA PTT Baseline POC ABG pH POC ABG pCO2 POC ABG pO2 Sodium Potassium Chloride Carbon Dioxide BUN Creatinine Glucose POC Glucose 158 H 133 H 147 H Lactic Acid Uric Acid Calcium Phosphorus Iron TIBC Erythropoietin Ferritin Total Bilirubin Direct Bilirubin AST ALT Alkaline Phosphatase Lactate Dehydrogenase C-Reactive Protein Serum Total Protein Total Protein Albumin Nvlin-8-Fpzxkcqky Abnorm Protein Band 1 PEP Interpretation Crossmatch 10/30/16 10/30/16 10/30/16 06:35 06:35 12:08 WBC 13.0 H RBC 3.08 L Hgb 9.3 L Hct 28.7 L MCV MCHC RDW 18.4 H Plt Count 73 L Seg Neuts % (Manual) Lymphocytes % (Manual) Nucleated RBC % Seg Neutrophils # Man Lymphocytes # (Manual) Haptoglobin PT INR Fibrinogen Lupus Anticoagulant LA PTT Baseline POC ABG pH POC ABG pCO2 POC ABG pO2 Sodium Potassium Chloride Carbon Dioxide BUN 86 H Creatinine 3.5 H Glucose 132 H POC Glucose 134 H Lactic Acid Uric Acid Calcium 7.1 L Phosphorus 5.90 H Iron TIBC Erythropoietin Ferritin Total Bilirubin Direct Bilirubin AST ALT Alkaline Phosphatase Lactate Dehydrogenase C-Reactive Protein Serum Total Protein Total Protein Albumin Egczh-7-Cyphornyk Abnorm Protein Band 1 PEP Interpretation Crossmatch 10/30/16 10/30/16 10/31/16 18:02 23:31 05:21 WBC RBC Hgb Hct MCV MCHC RDW Plt Count Seg Neuts % (Manual) Lymphocytes % (Manual) Nucleated RBC % Seg Neutrophils # Man Lymphocytes # (Manual) Haptoglobin PT INR Fibrinogen Lupus Anticoagulant LA PTT Baseline POC ABG pH POC ABG pCO2 POC ABG pO2 Sodium Potassium Chloride Carbon Dioxide BUN Creatinine Glucose POC Glucose 142 H 152 H 152 H Lactic Acid Uric Acid Calcium Phosphorus Iron TIBC Erythropoietin Ferritin Total Bilirubin Direct Bilirubin AST ALT Alkaline Phosphatase Lactate Dehydrogenase C-Reactive Protein Serum Total Protein Total Protein Albumin Avsts-9-Dauvhhxlv Abnorm Protein Band 1 PEP Interpretation Crossmatch 10/31/16 10/31/16 10/31/16 06:21 06:21 12:12 WBC 11.9 H RBC 2.82 L Hgb 8.6 L Hct 26.4 L MCV MCHC RDW 17.8 H Plt Count 56 L Seg Neuts % (Manual) Lymphocytes % (Manual) 0 L Nucleated RBC % Seg Neutrophils # Man 10.9 H Lymphocytes # (Manual) 0.0 L Haptoglobin PT INR Fibrinogen Lupus Anticoagulant LA PTT Baseline POC ABG pH POC ABG pCO2 POC ABG pO2 Sodium Potassium Chloride Carbon Dioxide 21 L BUN 107 H Creatinine 4.2 H Glucose 137 H POC Glucose 142 H Lactic Acid Uric Acid Calcium 7.2 L Phosphorus 6.50 H Iron TIBC Erythropoietin Ferritin Total Bilirubin Direct Bilirubin AST ALT Alkaline Phosphatase Lactate Dehydrogenase C-Reactive Protein Serum Total Protein Total Protein Albumin Xdtci-4-Abpbmiigz Abnorm Protein Band 1 PEP Interpretation Crossmatch 10/31/16 10/31/16 11/01/16 17:34 23:46 05:15 WBC RBC Hgb Hct MCV MCHC RDW Plt Count Seg Neuts % (Manual) Lymphocytes % (Manual) Nucleated RBC % Seg Neutrophils # Man Lymphocytes # (Manual) Haptoglobin PT INR Fibrinogen Lupus Anticoagulant LA PTT Baseline POC ABG pH POC ABG pCO2 POC ABG pO2 Sodium Potassium Chloride Carbon Dioxide BUN Creatinine Glucose POC Glucose 180 H 131 H 148 H Lactic Acid Uric Acid Calcium Phosphorus Iron TIBC Erythropoietin Ferritin Total Bilirubin Direct Bilirubin AST ALT Alkaline Phosphatase Lactate Dehydrogenase C-Reactive Protein Serum Total Protein Total Protein Albumin Edrou-7-Lwzbaynjt Abnorm Protein Band 1 PEP Interpretation Crossmatch 11/01/16 11/01/16 11/01/16 06:00 06:00 11:45 WBC RBC 2.66 L Hgb 8.1 L Hct 24.8 L MCV MCHC RDW 17.7 H Plt Count 47 L Seg Neuts % (Manual) 88.0 H Lymphocytes % (Manual) 0 L Nucleated RBC % Seg Neutrophils # Man Lymphocytes # (Manual) 0.0 L Haptoglobin PT INR Fibrinogen Lupus Anticoagulant LA PTT Baseline POC ABG pH POC ABG pCO2 POC ABG pO2 Sodium 134 L Potassium Chloride 95.6 L Carbon Dioxide BUN 90 H Creatinine 3.5 H Glucose 154 H POC Glucose 169 H Lactic Acid Uric Acid Calcium 7.1 L Phosphorus 5.50 H Iron TIBC Erythropoietin Ferritin Total Bilirubin Direct Bilirubin AST ALT Alkaline Phosphatase Lactate Dehydrogenase C-Reactive Protein Serum Total Protein Total Protein Albumin Mlroq-0-Wllxajoqh Abnorm Protein Band 1 PEP Interpretation Crossmatch 11/01/16 11/01/1611/01/17 18:33 20:55 23:51 WBC RBC Hgb Hct MCV MCHC RDW Plt Count Seg Neuts % (Manual) Lymphocytes % (Manual) Nucleated RBC % Seg Neutrophils # Man Lymphocytes # (Manual) Haptoglobin PT INR Fibrinogen Lupus Anticoagulant LA PTT Baseline POC ABG pH POC ABG pCO2 POC ABG pO2 Sodium Potassium Chloride Carbon Dioxide BUN Creatinine Glucose POC Glucose 128 H 144 H Lactic Acid 3.10 H* Uric Acid Calcium Phosphorus Iron TIBC Erythropoietin Ferritin Total Bilirubin Direct Bilirubin AST ALT Alkaline Phosphatase Lactate Dehydrogenase C-Reactive Protein Serum Total Protein Total Protein Albumin Rptza-6-Rzszrivkj Abnorm Protein Band 1 PEP Interpretation Crossmatch 11/02/16 11/02/16 11/02/16 05:15 05:15 05:24 WBC RBC 2.69 L Hgb 8.2 L Hct 25.1 L MCV MCHC RDW 16.9 H Plt Count 42 L Seg Neuts % (Manual) 94.0 H Lymphocytes % (Manual) 0 L Nucleated RBC % Seg Neutrophils # Man Lymphocytes # (Manual) 0.0 L Haptoglobin PT INR Fibrinogen Lupus Anticoagulant LA PTT Baseline POC ABG pH POC ABG pCO2 POC ABG pO2 Sodium 135 L Potassium Chloride 97.7 L Carbon Dioxide BUN 67 H Creatinine 2.8 H Glucose 107 H POC Glucose 119 H Lactic Acid Uric Acid Calcium 7.3 L Phosphorus 4.90 H Iron TIBC Erythropoietin Ferritin Total Bilirubin Direct Bilirubin AST ALT Alkaline Phosphatase Lactate Dehydrogenase C-Reactive Protein Serum Total Protein Total Protein Albumin Cwxpy-0-Cvrkhocki Abnorm Protein Band 1 PEP Interpretation Crossmatch 11/02/16 11/02/16 11/02/16 06:07 09:26 10:00 WBC RBC 2.83 L Hgb 8.7 L Hct 26.5 L MCV MCHC RDW 17.4 H Plt Count 46 L Seg Neuts % (Manual) Lymphocytes % (Manual) Nucleated RBC % Seg Neutrophils # Man Lymphocytes # (Manual) Haptoglobin PT 19.9 H INR 1.69 H Fibrinogen Lupus Anticoagulant LA PTT Baseline POC ABG pH POC ABG pCO2 POC ABG pO2 Sodium Potassium Chloride Carbon Dioxide BUN Creatinine Glucose POC Glucose 111 H Lactic Acid Uric Acid Calcium Phosphorus Iron TIBC Erythropoietin Ferritin Total Bilirubin Direct Bilirubin AST ALT Alkaline Phosphatase Lactate Dehydrogenase C-Reactive Protein Serum Total Protein Total Protein Albumin Gxtyl-3-Yzcsawzsc Abnorm Protein Band 1 PEP Interpretation Crossmatch 11/03/16 11/03/16 11/03/16 00:02 03:25 03:25 WBC RBC 2.34 L Hgb 7.0 L Hct 21.9 L MCV MCHC RDW 17.6 H Plt Count 49 L Seg Neuts % (Manual) 86.0 H Lymphocytes % (Manual) 4.0 L Nucleated RBC % Seg Neutrophils # Man Lymphocytes # (Manual) 0.3 L Haptoglobin PT INR Fibrinogen Lupus Anticoagulant LA PTT Baseline POC ABG pH POC ABG pCO2 POC ABG pO2 Sodium 136 L Potassium Chloride 94.6 L Carbon Dioxide 21 L BUN 84 H Creatinine 3.2 H Glucose 116 H POC Glucose 114 H Lactic Acid Uric Acid Calcium 7.0 L Phosphorus 5.80 H Iron TIBC Erythropoietin Ferritin Total Bilirubin Direct Bilirubin AST ALT Alkaline Phosphatase Lactate Dehydrogenase C-Reactive Protein Serum Total Protein Total Protein Albumin Xrdgw-7-Goaomuttx Abnorm Protein Band 1 PEP Interpretation Crossmatch 11/03/16 11/03/16 11/03/16 03:25 11:05 13:02 WBC RBC Hgb Hct MCV MCHC RDW Plt Count Seg Neuts % (Manual) Lymphocytes % (Manual) Nucleated RBC % Seg Neutrophils # Man Lymphocytes # (Manual) Haptoglobin PT 22.5 H INR 1.98 H Fibrinogen Lupus Anticoagulant LA PTT Baseline POC ABG pH POC ABG pCO2 POC ABG pO2 Sodium Potassium Chloride Carbon Dioxide BUN Creatinine Glucose POC Glucose 165 H Lactic Acid Uric Acid Calcium Phosphorus Iron TIBC Erythropoietin Ferritin Total Bilirubin Direct Bilirubin AST ALT Alkaline Phosphatase Lactate Dehydrogenase C-Reactive Protein Serum Total Protein Total Protein Albumin Jvzed-9-Ateojypkd Abnorm Protein Band 1 PEP Interpretation Crossmatch See Detail 11/03/16 11/04/16 11/04/16 18:13 00:27 05:40 WBC RBC Hgb Hct MCV MCHC RDW Plt Count Seg Neuts % (Manual) Lymphocytes % (Manual) Nucleated RBC % Seg Neutrophils # Man Lymphocytes # (Manual) Haptoglobin PT 20.3 H INR 1.74 H Fibrinogen Lupus Anticoagulant LA PTT Baseline POC ABG pH POC ABG pCO2 POC ABG pO2 Sodium Potassium Chloride Carbon Dioxide BUN Creatinine Glucose POC Glucose 163 H 108 H Lactic Acid Uric Acid Calcium Phosphorus Iron TIBC Erythropoietin Ferritin Total Bilirubin Direct Bilirubin AST ALT Alkaline Phosphatase Lactate Dehydrogenase C-Reactive Protein Serum Total Protein Total Protein Albumin Wkdaw-7-Rnvqcrxbs Abnorm Protein Band 1 PEP Interpretation Crossmatch 11/04/16 11/04/16 11/04/16 11:41 14:48 17:58 WBC RBC Hgb Hct MCV MCHC RDW Plt Count Seg Neuts % (Manual) Lymphocytes % (Manual) Nucleated RBC % Seg Neutrophils # Man Lymphocytes # (Manual) Haptoglobin PT INR Fibrinogen Lupus Anticoagulant LA PTT Baseline POC ABG pH POC ABG pCO2 POC ABG pO2 107 H Sodium Potassium Chloride Carbon Dioxide BUN Creatinine Glucose POC Glucose 175 H 106 H Lactic Acid Uric Acid Calcium Phosphorus Iron TIBC Erythropoietin Ferritin Total Bilirubin Direct Bilirubin AST ALT Alkaline Phosphatase Lactate Dehydrogenase C-Reactive Protein Serum Total Protein Total Protein Albumin Tskse-0-Lrlciebob Abnorm Protein Band 1 PEP Interpretation Crossmatch 11/05/16 11/05/16 11/05/16 00:21 04:55 05:40 WBC RBC 2.60 L Hgb 8.1 L Hct 24.6 L MCV 95 H MCHC RDW 16.4 H Plt Count 34 L Seg Neuts % (Manual) Lymphocytes % (Manual) 1.0 L Nucleated RBC % Seg Neutrophils # Man Lymphocytes # (Manual) 0.1 L Haptoglobin PT INR Fibrinogen Lupus Anticoagulant LA PTT Baseline POC ABG pH POC ABG pCO2 POC ABG pO2 Sodium Potassium Chloride Carbon Dioxide BUN Creatinine Glucose POC Glucose 117 H 143 H Lactic Acid Uric Acid Calcium Phosphorus Iron TIBC Erythropoietin Ferritin Total Bilirubin Direct Bilirubin AST ALT Alkaline Phosphatase Lactate Dehydrogenase C-Reactive Protein Serum Total Protein Total Protein Albumin Qpqqw-2-Luhaxapms Abnorm Protein Band 1 PEP Interpretation Crossmatch 11/05/16 11/05/16 11/05/16 06:00 11:20 18:03 WBC RBC Hgb Hct MCV MCHC RDW Plt Count Seg Neuts % (Manual) Lymphocytes % (Manual) Nucleated RBC % Seg Neutrophils # Man Lymphocytes # (Manual) Haptoglobin PT INR Fibrinogen Lupus Anticoagulant LA PTT Baseline POC ABG pH POC ABG pCO2 POC ABG pO2 Sodium Potassium Chloride Carbon Dioxide BUN 46 H Creatinine 2.0 H Glucose 166 H POC Glucose 147 H 178 H Lactic Acid Uric Acid Calcium 7.3 L Phosphorus Iron TIBC Erythropoietin Ferritin Total Bilirubin Direct Bilirubin AST ALT Alkaline Phosphatase Lactate Dehydrogenase C-Reactive Protein Serum Total Protein Total Protein Albumin Ncjhp-8-Ehjtgvqqz Abnorm Protein Band 1 PEP Interpretation Crossmatch 11/05/16 11/05/16 11/06/16 21:31 23:49 05:09 WBC RBC Hgb Hct MCV MCHC RDW Plt Count Seg Neuts % (Manual) Lymphocytes % (Manual) Nucleated RBC % Seg Neutrophils # Man Lymphocytes # (Manual) Haptoglobin PT INR Fibrinogen Lupus Anticoagulant LA PTT Baseline POC ABG pH 7.464 H POC ABG pCO2 34.8 L POC ABG pO2 219 H Sodium Potassium Chloride Carbon Dioxide BUN Creatinine Glucose POC Glucose 130 H 138 H Lactic Acid Uric Acid Calcium Phosphorus Iron TIBC Erythropoietin Ferritin Total Bilirubin Direct Bilirubin AST ALT Alkaline Phosphatase Lactate Dehydrogenase C-Reactive Protein Serum Total Protein Total Protein Albumin Tuphs-5-Zwzehkcpc Abnorm Protein Band 1 PEP Interpretation Crossmatch 11/06/16 11/06/16 11/06/16 08:10 08:10 11:23 WBC RBC 2.78 L Hgb 8.7 L Hct 26.4 L MCV 95 H MCHC RDW 17.3 H Plt Count 34 L Seg Neuts % (Manual) Lymphocytes % (Manual) Nucleated RBC % Seg Neutrophils # Man Lymphocytes # (Manual) Haptoglobin PT INR Fibrinogen Lupus Anticoagulant LA PTT Baseline POC ABG pH POC ABG pCO2 POC ABG pO2 Sodium Potassium Chloride 97.8 L Carbon Dioxide BUN 72 H Creatinine 3.0 H Glucose 173 H POC Glucose 129 H Lactic Acid Uric Acid Calcium 7.2 L Phosphorus Iron TIBC Erythropoietin Ferritin Total Bilirubin Direct Bilirubin AST 105 H ALT Alkaline Phosphatase 759 H Lactate Dehydrogenase C-Reactive Protein Serum Total Protein Total Protein 5.1 L Albumin 1.9 L Nivyy-0-Hrovalaqp Abnorm Protein Band 1 PEP Interpretation Crossmatch 11/06/16 11/07/16 11/07/16 17:17 05:09 08:27 WBC RBC 2.76 L Hgb 8.5 L Hct 25.9 L MCV MCHC RDW 16.5 H Plt Count 33 L Seg Neuts % (Manual) Lymphocytes % (Manual) Nucleated RBC % Seg Neutrophils # Man Lymphocytes # (Manual) Haptoglobin PT INR Fibrinogen Lupus Anticoagulant LA PTT Baseline POC ABG pH POC ABG pCO2 POC ABG pO2 Sodium Potassium Chloride Carbon Dioxide BUN Creatinine Glucose POC Glucose 160 H 136 H Lactic Acid Uric Acid Calcium Phosphorus Iron TIBC Erythropoietin Ferritin Total Bilirubin Direct Bilirubin AST ALT Alkaline Phosphatase Lactate Dehydrogenase C-Reactive Protein Serum Total Protein Total Protein Albumin Puomw-8-Mcxmjmvhi Abnorm Protein Band 1 PEP Interpretation Crossmatch 11/07/16 11/07/16 11/07/16 08:27 11:37 12:38 WBC RBC Hgb Hct MCV MCHC RDW Plt Count Seg Neuts % (Manual) Lymphocytes % (Manual) Nucleated RBC % Seg Neutrophils # Man Lymphocytes # (Manual) Haptoglobin PT INR Fibrinogen Lupus Anticoagulant LA PTT Baseline POC ABG pH 7.492 H POC ABG pCO2 29.8 L POC ABG pO2 132 H Sodium Potassium Chloride 96.0 L Carbon Dioxide BUN 94 H Creatinine 3.3 H Glucose 115 H POC Glucose 113 H Lactic Acid Uric Acid Calcium 7.7 L Phosphorus Iron TIBC Erythropoietin Ferritin Total Bilirubin Direct Bilirubin AST ALT Alkaline Phosphatase Lactate Dehydrogenase C-Reactive Protein Serum Total Protein Total Protein Albumin Uqsdw-0-Vblpbncvw Abnorm Protein Band 1 PEP Interpretation Crossmatch 11/07/16 11/07/16 11/08/16 17:20 23:40 05:15 WBC RBC 2.87 L Hgb 8.9 L Hct 26.9 L MCV MCHC RDW 16.7 H Plt Count 34 L Seg Neuts % (Manual) Lymphocytes % (Manual) Nucleated RBC % Seg Neutrophils # Man Lymphocytes # (Manual) Haptoglobin PT INR Fibrinogen Lupus Anticoagulant LA PTT Baseline POC ABG pH POC ABG pCO2 POC ABG pO2 Sodium Potassium Chloride Carbon Dioxide BUN Creatinine Glucose POC Glucose 121 H 122 H Lactic Acid Uric Acid Calcium Phosphorus Iron TIBC Erythropoietin Ferritin Total Bilirubin Direct Bilirubin AST ALT Alkaline Phosphatase Lactate Dehydrogenase C-Reactive Protein Serum Total Protein Total Protein Albumin Ydwpg-7-Egiwsmgxg Abnorm Protein Band 1 PEP Interpretation Crossmatch 11/08/16 11/08/16 11/08/16 05:15 05:31 10:05 WBC RBC Hgb Hct MCV MCHC RDW Plt Count Seg Neuts % (Manual) Lymphocytes % (Manual) Nucleated RBC % Seg Neutrophils # Man Lymphocytes # (Manual) Haptoglobin PT INR Fibrinogen Lupus Anticoagulant LA PTT Baseline POC ABG pH 7.510 H POC ABG pCO2 29.5 L POC ABG pO2 114 H Sodium Potassium Chloride Carbon Dioxide BUN 73 H Creatinine 2.8 H Glucose 110 H POC Glucose 106 H Lactic Acid Uric Acid Calcium 7.6 L Phosphorus Iron TIBC Erythropoietin Ferritin Total Bilirubin Direct Bilirubin AST ALT Alkaline Phosphatase Lactate Dehydrogenase C-Reactive Protein Serum Total Protein Total Protein Albumin Hcxpz-5-Hntyzjrvf Abnorm Protein Band 1 PEP Interpretation Crossmatch 11/08/16 11/08/16 11/08/16 12:24 12:53 18:05 WBC RBC Hgb Hct MCV MCHC RDW Plt Count Seg Neuts % (Manual) Lymphocytes % (Manual) Nucleated RBC % Seg Neutrophils # Man Lymphocytes # (Manual) Haptoglobin PT INR Fibrinogen Lupus Anticoagulant LA PTT Baseline POC ABG pH POC ABG pCO2 52.3 H POC ABG pO2 Sodium Potassium Chloride Carbon Dioxide BUN Creatinine Glucose POC Glucose 110 H 166 H Lactic Acid Uric Acid Calcium Phosphorus Iron TIBC Erythropoietin Ferritin Total Bilirubin Direct Bilirubin AST ALT Alkaline Phosphatase Lactate Dehydrogenase C-Reactive Protein Serum Total Protein Total Protein Albumin Gamkd-9-Aikdhoafi Abnorm Protein Band 1 PEP Interpretation Crossmatch 11/09/16 11/09/16 11/09/16 00:27 05:22 07:39 WBC 11.1 H RBC 2.91 L Hgb 8.9 L Hct 27.7 L MCV 95 H MCHC RDW 17.4 H Plt Count 59 L Seg Neuts % (Manual) Lymphocytes % (Manual) Nucleated RBC % Seg Neutrophils # Man Lymphocytes # (Manual) Haptoglobin PT INR Fibrinogen Lupus Anticoagulant LA PTT Baseline POC ABG pH POC ABG pCO2 POC ABG pO2 Sodium Potassium Chloride Carbon Dioxide BUN Creatinine Glucose POC Glucose 196 H 213 H Lactic Acid Uric Acid Calcium Phosphorus Iron TIBC Erythropoietin Ferritin Total Bilirubin Direct Bilirubin AST ALT Alkaline Phosphatase Lactate Dehydrogenase C-Reactive Protein Serum Total Protein Total Protein Albumin Xltkt-8-Nqppcaffx Abnorm Protein Band 1 PEP Interpretation Crossmatch 11/09/16 11/09/16 11/09/16 07:39 12:24 18:01 WBC RBC Hgb Hct MCV MCHC RDW Plt Count Seg Neuts % (Manual) Lymphocytes % (Manual) Nucleated RBC % Seg Neutrophils # Man Lymphocytes # (Manual) Haptoglobin PT INR Fibrinogen Lupus Anticoagulant LA PTT Baseline POC ABG pH POC ABG pCO2 POC ABG pO2 Sodium Potassium 3.3 L Chloride Carbon Dioxide BUN 47 H Creatinine 1.9 H Glucose 207 H POC Glucose 148 H 123 H Lactic Acid Uric Acid Calcium 7.6 L Phosphorus Iron TIBC Erythropoietin Ferritin Total Bilirubin Direct Bilirubin AST ALT Alkaline Phosphatase Lactate Dehydrogenase C-Reactive Protein Serum Total Protein Total Protein Albumin Bdfkr-2-Cssmrttoi Abnorm Protein Band 1 PEP Interpretation Crossmatch 11/10/16 11/10/16 11/10/16 00:34 06:15 06:15 WBC RBC 2.66 L Hgb 8.3 L Hct 25.9 L MCV 98 H D MCHC RDW 17.6 H Plt Count 50 L Seg Neuts % (Manual) Lymphocytes % (Manual) Nucleated RBC % Seg Neutrophils # Man Lymphocytes # (Manual) Haptoglobin PT INR Fibrinogen Lupus Anticoagulant LA PTT Baseline POC ABG pH POC ABG pCO2 POC ABG pO2 Sodium Potassium Chloride Carbon Dioxide BUN 64 H Creatinine 2.3 H Glucose 154 H POC Glucose 176 H Lactic Acid Uric Acid Calcium 7.6 L Phosphorus Iron TIBC Erythropoietin Ferritin Total Bilirubin Direct Bilirubin AST ALT Alkaline Phosphatase Lactate Dehydrogenase C-Reactive Protein Serum Total Protein Total Protein Albumin Wfunq-3-Ezkrlmuba Abnorm Protein Band 1 PEP Interpretation Crossmatch 11/10/16 11/10/16 11/11/16 12:03 17:03 00:03 WBC RBC Hgb Hct MCV MCHC RDW Plt Count Seg Neuts % (Manual) Lymphocytes % (Manual) Nucleated RBC % Seg Neutrophils # Man Lymphocytes # (Manual) Haptoglobin PT INR Fibrinogen Lupus Anticoagulant LA PTT Baseline POC ABG pH POC ABG pCO2 POC ABG pO2 Sodium Potassium Chloride Carbon Dioxide BUN Creatinine Glucose POC Glucose 121 H < 40 L 121 H Lactic Acid Uric Acid Calcium Phosphorus Iron TIBC Erythropoietin Ferritin Total Bilirubin Direct Bilirubin AST ALT Alkaline Phosphatase Lactate Dehydrogenase C-Reactive Protein Serum Total Protein Total Protein Albumin Vvmyj-3-Bjhvyazni Abnorm Protein Band 1 PEP Interpretation Crossmatch 11/11/16 11/11/16 11/11/16 05:27 08:30 08:30 WBC RBC 2.76 L Hgb 8.5 L Hct 26.4 L MCV 96 H MCHC RDW 17.3 H Plt Count 45 L Seg Neuts % (Manual) 74.0 H Lymphocytes % (Manual) 0 L Nucleated RBC % 1.0 H Seg Neutrophils # Man 7.8 H Lymphocytes # (Manual) 0.0 L Haptoglobin PT INR Fibrinogen Lupus Anticoagulant LA PTT Baseline POC ABG pH POC ABG pCO2 POC ABG pO2 Sodium Potassium 3.4 L Chloride Carbon Dioxide BUN 45 H Creatinine 1.8 H Glucose 138 H POC Glucose 113 H Lactic Acid Uric Acid Calcium 7.6 L Phosphorus Iron TIBC Erythropoietin Ferritin Total Bilirubin Direct Bilirubin AST 87 H ALT Alkaline Phosphatase 635 H Lactate Dehydrogenase C-Reactive Protein Serum Total Protein Total Protein 4.9 L Albumin 1.7 L Lwxkj-6-Qqtlldihb Abnorm Protein Band 1 PEP Interpretation Crossmatch 11/11/16 11/11/16 11/12/16 12:40 17:46 00:17 WBC RBC Hgb Hct MCV MCHC RDW Plt Count Seg Neuts % (Manual) Lymphocytes % (Manual) Nucleated RBC % Seg Neutrophils # Man Lymphocytes # (Manual) Haptoglobin PT INR Fibrinogen Lupus Anticoagulant LA PTT Baseline POC ABG pH POC ABG pCO2 POC ABG pO2 Sodium Potassium Chloride Carbon Dioxide BUN Creatinine Glucose POC Glucose 139 H 169 H 143 H Lactic Acid Uric Acid Calcium Phosphorus Iron TIBC Erythropoietin Ferritin Total Bilirubin Direct Bilirubin AST ALT Alkaline Phosphatase Lactate Dehydrogenase C-Reactive Protein Serum Total Protein Total Protein Albumin Bactw-2-Vvpqwqdhk Abnorm Protein Band 1 PEP Interpretation Crossmatch 11/12/16 11/12/16 11/12/16 02:00 02:00 05:26 WBC RBC Hgb Hct MCV MCHC RDW Plt Count Seg Neuts % (Manual) Lymphocytes % (Manual) Nucleated RBC % Seg Neutrophils # Man Lymphocytes # (Manual) Haptoglobin PT INR Fibrinogen Lupus Anticoagulant LA PTT Baseline POC ABG pH POC ABG pCO2 POC ABG pO2 Sodium Potassium Chloride Carbon Dioxide BUN Creatinine Glucose POC Glucose 143 H Lactic Acid 3.00 H* Uric Acid Calcium Phosphorus Iron TIBC Erythropoietin Ferritin Total Bilirubin Direct Bilirubin AST ALT Alkaline Phosphatase Lactate Dehydrogenase C-Reactive Protein 16.00 H Serum Total Protein Total Protein Albumin Hbgty-5-Opycshswj Abnorm Protein Band 1 PEP Interpretation Crossmatch 11/12/16 11/12/16 11/12/16 07:46 12:07 Unknown WBC RBC 2.87 L Hgb 9.0 L Hct 27.3 L MCV 95 H MCHC RDW 17.3 H Plt Count 56 L Seg Neuts % (Manual) Lymphocytes % (Manual) 7.0 L Nucleated RBC % 6.0 H Seg Neutrophils # Man Lymphocytes # (Manual) 0.6 L Haptoglobin PT INR Fibrinogen Lupus Anticoagulant LA PTT Baseline POC ABG pH POC ABG pCO2 POC ABG pO2 Sodium Potassium Chloride Carbon Dioxide BUN Creatinine Glucose POC Glucose 145 H 158 H Lactic Acid Uric Acid Calcium Phosphorus Iron TIBC Erythropoietin Ferritin Total Bilirubin Direct Bilirubin AST ALT Alkaline Phosphatase Lactate Dehydrogenase C-Reactive Protein Serum Total Protein Total Protein Albumin [id number] Abnorm Protein Band 1 PEP Interpretation Crossmatch 11/12/16 Unknown WBC RBC Hgb Hct MCV MCHC RDW Plt Count Seg Neuts % (Manual) Lymphocytes % (Manual) Nucleated RBC % Seg Neutrophils # Man Lymphocytes # (Manual) Haptoglobin PT INR Fibrinogen Lupus Anticoagulant LA PTT Baseline POC ABG pH POC ABG pCO2 POC ABG pO2 Sodium Potassium Chloride Carbon Dioxide BUN 42 H Creatinine 1.7 H Glucose 152 H POC Glucose Lactic Acid Uric Acid Calcium 7.8 L Phosphorus Iron TIBC Erythropoietin Ferritin Total Bilirubin Direct Bilirubin AST ALT Alkaline Phosphatase Lactate Dehydrogenase C-Reactive Protein Serum Total Protein Total Protein Albumin [id number] Abnorm Protein Band 1 PEP Interpretation Crossmatch Allied health notes reviewed: RT
--- NOTE | 2016-11-12 17:07 | Progress Note ---
Subjective Date of service: 11/12/16 Principal diagnosis: Sepsis Syndrome; MAHA; RAJESH; CHF; TTP Interval history: Patient is a 61-year-old man without known past medical history who presented to the emergency department [facility] on 10/13/16, complaining of bilateral leg swelling that worsened for the last 4 days. He was found to have severe metabolic acidosis, creatinine was 14.5 with hyperkalemia, emergent Hemodialysis was done. He was also found to have severe pancytopenia, thrombocytopenia and Dr. 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 He was on bipap and was intubated 10/16/16, details are not readily available on why he needed to be intubated, no nursing note for 10/16. -Acute encephalopathy, not sedated, neurology following CTH confirms multifocal hemorrhagic lesions but no midline shift/compression of brain structures/significant mass effect and is actually improved from prior MRI. CTA H/N w/o vascular lesion. JONATHAN w/o endocarditis or source of emboli. 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 Avoid all blood thinners until hemorrhage stable. BP control: goal < 140/90 -AFIB WITH RVR, stable: Cardiology is following -Group B strep bacteremia: JONATHAN done on 10/27/16 -Acute Respiratory failure with hypoxia, intubated: continue mv, -Pancytopenia [leukopenia, severe anemia, Woresening thrombocytopenia] heme/onc is following, s/p PLASMAPHERSIS, s/p PRBC transfusion, s/p plt transfusion -ARF, renal tubular stasis, poa, getting hemodialysis: monitor closely -Probable TTP, await [id number] results -Acute systolic congestive heart failure EF around 30% -SEVERE SEPSIS, poa - cardiogenic shock, on levophed Subjective Patient seen and examined. Patient still intubated. Overnight uneventful. Imaging, old records, testing, labs, nursing notes reviewed. Objective - Exam Narrative Exam: GEN: Critically ill intubated but not sedated HEENT: Eyes are floating,trach in place CVS: irregular, NORMAL S1S2 LUNGS/CHEST: NORMAL CHEST EXPANSION B, GOOD AIR ENTRY B ABD: SOFT, peg in place POSITIVE BOWEL SOUNDS, NONDISTENDED, NO REBOUND OR GUARDING NEURO: CN 2-12 GROSSLY INTACT, he doesn't follow commands PSY: Unresponsive Objective - Constitutional Vitals: Vital Signs - 12hr 11/12/16 11/12/16 11/12/16 05:15 05:30 05:45 Temperature Pulse Rate 111 H 112 H 112 H Respiratory 30 H 22 27 H Rate Blood Pressure 153/81 127/73 120/75 O2 Sat by Pulse 100 99 100 Oximetry O2 Sat by Pulse Oximetry [ Assessment] 11/12/16 11/12/16 11/12/16 06:00 06:15 06:30 Temperature Pulse Rate 112 H 109 H 107 H Respiratory 25 H 22 22 Rate Blood Pressure 139/72 129/65 118/62 O2 Sat by Pulse 100 100 100 Oximetry O2 Sat by Pulse Oximetry [ Assessment] 11/12/16 11/12/16 11/12/16 06:45 07:00 07:15 Temperature Pulse Rate 106 H 103 H 106 H Respiratory 20 22 22 Rate Blood Pressure 119/66 123/58 116/65 O2 Sat by Pulse 100 100 100 Oximetry O2 Sat by Pulse Oximetry [ Assessment] 11/12/16 11/12/16 11/12/16 07:30 07:45 08:00 Temperature 98.7 F Pulse Rate 108 H 106 H 104 H Respiratory 22 24 23 Rate Blood Pressure 103/70 108/69 99/63 O2 Sat by Pulse 100 100 100 Oximetry O2 Sat by Pulse Oximetry [ Assessment] 11/12/16 11/12/16 11/12/16 08:15 08:30 08:45 Temperature Pulse Rate 104 H 105 H 103 H Respiratory 22 24 21 Rate Blood Pressure 95/62 101/68 117/57 O2 Sat by Pulse 100 100 100 Oximetry O2 Sat by Pulse Oximetry [ Assessment] 11/12/16 11/12/16 11/12/16 09:00 09:15 09:30 Temperature Pulse Rate 107 H 106 H 105 H Respiratory 21 23 24 Rate Blood Pressure 110/63 122/63 102/60 O2 Sat by Pulse 100 100 100 Oximetry O2 Sat by Pulse Oximetry [ Assessment] 11/12/16 11/12/16 11/12/16 09:45 10:00 10:15 Temperature Pulse Rate 108 H 107 H 106 H Respiratory 36 H 24 25 H Rate Blood Pressure 126/81 127/61 104/57 O2 Sat by Pulse 100 100 100 Oximetry O2 Sat by Pulse 100 Oximetry [ Assessment] 11/12/16 11/12/16 11/12/16 10:30 10:45 11:00 Temperature Pulse Rate 106 H 106 H 106 H Respiratory 27 H 24 25 H Rate Blood Pressure 111/63 100/64 98/62 O2 Sat by Pulse 100 100 100 Oximetry O2 Sat by Pulse Oximetry [ Assessment] 11/12/16 11/12/16 11/12/16 11:15 11:30 11:35 Temperature Pulse Rate 107 H 107 H Respiratory 22 23 Rate Blood Pressure 111/67 99/63 O2 Sat by Pulse 100 100 97 Oximetry O2 Sat by Pulse Oximetry [ Assessment] 11/12/16 11/12/16 11/12/16 11:45 12:00 12:10 Temperature 99.7 F H Pulse Rate 107 H 107 H 115 H Respiratory 23 21 35 H Rate Blood Pressure 97/64 94/61 102/69 O2 Sat by Pulse 100 100 100 Oximetry O2 Sat by Pulse Oximetry [ Assessment] 11/12/16 11/12/16 11/12/16 12:15 12:30 12:45 Temperature Pulse Rate 108 H 109 H 111 H Respiratory 36 H 33 H 31 H Rate Blood Pressure 102/69 103/64 119/63 O2 Sat by Pulse 100 100 100 Oximetry O2 Sat by Pulse Oximetry [ Assessment] 11/12/16 11/12/16 11/12/16 13:00 13:15 13:30 Temperature Pulse Rate 109 H 109 H 109 H Respiratory 31 H 29 H 31 H Rate Blood Pressure 103/60 97/61 95/59 O2 Sat by Pulse 100 100 100 Oximetry O2 Sat by Pulse Oximetry [ Assessment] 11/12/16 11/12/16 11/12/16 13:45 14:00 14:15 Temperature Pulse Rate 112 H 111 H 109 H Respiratory 34 H 29 H 27 H Rate Blood Pressure 105/65 103/63 93/58 O2 Sat by Pulse 100 100 100 Oximetry O2 Sat by Pulse Oximetry [ Assessment] 11/12/16 11/12/16 11/12/16 14:30 14:45 15:00 Temperature Pulse Rate 107 H 107 H 109 H Respiratory 24 22 27 H Rate Blood Pressure 97/59 97/65 92/68 O2 Sat by Pulse 100 100 100 Oximetry O2 Sat by Pulse Oximetry [ Assessment] 11/12/16 11/12/16 15:15 15:47 Temperature Pulse Rate 110 H Respiratory 29 H 22 Rate Blood Pressure 100/73 O2 Sat by Pulse 100 97 Oximetry O2 Sat by Pulse Oximetry [ Assessment] - Labs CBC & Chem 7: 11/12/16 Unknown 11/12/16 Unknown Labs: Abnormal lab results 11/11/16 11/11/16 11/12/16 Range/Units 12:40 17:46 00:17 RBC (3.65-5.03) M/mm3 Hgb (11.8-15.2) gm/dl Hct (35.5-45.6) % MCV (84-94) fl RDW (13.2-15.2) % Plt Count (140-440) K/mm3 Lymphocytes % (Manual) (13.4-35.0) % Nucleated RBC % (0.0-0.9) % Lymphocytes # (Manual) (1.2-5.4) K/mm3 BUN (9-20) mg/dL Creatinine (0.8-1.5) mg/dL Glucose (75-100) mg/dL POC Glucose 139 H 169 H 143 H (70-105) Lactic Acid (0.7-2.0) mmol/L Calcium (8.4-10.2) mg/dL C-Reactive Protein (0.00-1.30) mg/dL 11/12/16 11/12/16 11/12/16 Range/Units 02:00 02:00 05:26 RBC (3.65-5.03) M/mm3 Hgb (11.8-15.2) gm/dl Hct (35.5-45.6) % MCV (84-94) fl RDW (13.2-15.2) % Plt Count (140-440) K/mm3 Lymphocytes % (Manual) (13.4-35.0) % Nucleated RBC % (0.0-0.9) % Lymphocytes # (Manual) (1.2-5.4) K/mm3 BUN (9-20) mg/dL Creatinine (0.8-1.5) mg/dL Glucose (75-100) mg/dL POC Glucose 143 H (70-105) Lactic Acid 3.00 H* (0.7-2.0) mmol/L Calcium (8.4-10.2) mg/dL C-Reactive Protein 16.00 H (0.00-1.30) mg/dL 11/12/16 11/12/16 11/12/16 Range/Units 07:46 12:07 Unknown RBC 2.87 L (3.65-5.03) M/mm3 Hgb 9.0 L (11.8-15.2) gm/dl Hct 27.3 L (35.5-45.6) % MCV 95 H (84-94) fl RDW 17.3 H (13.2-15.2) % Plt Count 56 L (140-440) K/mm3 Lymphocytes % (Manual) 7.0 L (13.4-35.0) % Nucleated RBC % 6.0 H (0.0-0.9) % Lymphocytes # (Manual) 0.6 L (1.2-5.4) K/mm3 BUN (9-20) mg/dL Creatinine (0.8-1.5) mg/dL Glucose (75-100) mg/dL POC Glucose 145 H 158 H (70-105) Lactic Acid (0.7-2.0) mmol/L Calcium (8.4-10.2) mg/dL C-Reactive Protein (0.00-1.30) mg/dL 11/12/16 Range/Units Unknown RBC (3.65-5.03) M/mm3 Hgb (11.8-15.2) gm/dl Hct (35.5-45.6) % MCV (84-94) fl RDW (13.2-15.2) % Plt Count (140-440) K/mm3 Lymphocytes % (Manual) (13.4-35.0) % Nucleated RBC % (0.0-0.9) % Lymphocytes # (Manual) (1.2-5.4) K/mm3 BUN 42 H (9-20) mg/dL Creatinine 1.7 H (0.8-1.5) mg/dL Glucose 152 H (75-100) mg/dL POC Glucose (70-105) Lactic Acid (0.7-2.0) mmol/L Calcium 7.8 L (8.4-10.2) mg/dL C-Reactive Protein (0.00-1.30) mg/dL
--- NOTE | 2016-11-12 19:10 | Consultation ---
History of Present Illness - Reason for Consult Consult date: 11/12/16 - History of Present Illness Patient resting in bed, labs reviewed, improving. Past History Past Medical History: hypertension, other (Had shingles in November 27-) Past Surgical History: No surgical history Social history: , full code, other (Patienti s and lives with his ). denies: smoking, alcohol abuse, prescription drug abuse, IV drug use Family history: no significant family history Medications and Allergies Allergies Allergy/AdvReac Type Severity Reaction Status Date / Time No Known Allergies Allergy Unverified 10/13/16 09:41 Home Medications Medication Instructions Recorded Confirmed Last Taken Type Naproxen Sodium [Aleve TAB] 2 tab PO Q8H PRN 10/13/16 10/13/16 10/12/16 14:00 History Active Meds: Active Medications Acetaminophen (Tylenol) 1,000 mg [place] Q4H PRN PRN Reason: Pain, Mild (1-3) Last Admin: 10/20/16 15:40 Dose: 1,000 mg Acetaminophen (Tylenol) 650 mg FEEDTUBE Q6H PRN PRN Reason: Pain, Mild (1-3) Last Admin: 10/24/16 10:56 Dose: 650 mg Alteplase, Recombinant (Cathflo) 4 mg IV ROD PRN PRN Reason: hemodialysis Last Admin: 11/12/16 10:56 Dose: 4 mg Lipase/Protease/Amylase (Pancreaze Dr 10,500 Unit) 1 each FEEDTUBE PRN PRN PRN Reason: For Clogged Feeding Tube Dextrose (D50w (25gm)) 25 ml IV PRN PRN PRN Reason: Hypoglycemia Last Admin: 11/10/16 17:14 Dose: 25 ml Diphenhydramine HCl (Benadryl) 50 mg IV Q6H PRN PRN Reason: Itching Last Admin: 10/24/16 10:57 Dose: 50 mg Famotidine (Pepcid) 20 mg PO Q24H EDWINA Last Admin: 11/12/16 09:49 Dose: 20 mg Haloperidol Lactate (Haldol) 5 mg IM Q6H PRN PRN Reason: Agitation Last Admin: 10/14/16 21:11 Dose: 5 mg Heparin Sodium (Porcine) (Heparin) 10,000 unit IV ROD PRN PRN Reason: for plasmapheresis- vascath Last Admin: 11/11/16 14:28 Dose: 10,000 unit Hydrophilic Ointment (Vaseline Lip Therapy) 1 applic TP Q2H PRN PRN Reason: Dry Lips Fentanyl Citrate (Fentanyl Drip Premix) 2,000 mcg in 100 mls @ 3.045 mls/hr IV TITR EDWINA; 1 MCG/KG/HR PRN Reason: Protocol Vasopressin 20 unit/ Sodium (Chloride) 101 mls @ 9.09 mls/hr IV TITR EDWINA; 0.03 UNITS/MIN PRN Reason: Protocol Sodium Chloride (Nacl 0.9%) 100 mls @ 999 mls/hr IV ROD PRN PRN Reason: Hypotension Norepinephrine 8 mg/ Sodium (Chloride) 250 mls @ 3.75 mls/hr IV TITR EDWINA; 2 MCG /MIN PRN Reason: Protocol Last Admin: 11/12/16 11:59 Dose: 14 mcg/min, 26.25 mls/hr Insulin Aspart (Novolog) 0 units SUB-Q Q6HR EDWINA PRN Reason: Protocol Last Admin: 11/12/16 18:12 Dose: Not Given Labetalol HCl (Normodyne) 20 mg IV Q6H PRN PRN Reason: Hypertension Last Admin: 10/25/16 05:33 Dose: 20 mg Loperamide HCl (Imodium A-D) 2 mg PO Q2H PRN PRN Reason: Diarrhea Last Admin: 11/03/16 14:09 Dose: 2 mg Metoprolol Tartrate (Lopressor) 25 mg PO BID EDWINA Last Admin: 11/12/16 09:52 Dose: Not Given Multi-Ingred Cream/Lotion/Oil/Oint (Artificial Tears Ophth Oint) 1 applic OU Q4H PRN PRN Reason: Dry Eye(s) Ondansetron HCl (Zofran) 4 mg IV Q8H PRN PRN Reason: Nausea And Vomiting Simple Syrup (Simple Syrup) 15 ml FEEDTUBE PRN PRN PRN Reason: Hypoglycemia Simple Syrup (Simple Syrup) 30 ml FEEDTUBE PRN PRN PRN Reason: Hypoglycemia Sodium Bicarbonate (Sodium Bicarbonate) 325 mg FEEDTUBE PRN PRN PRN Reason: For Clogged Feeding Tube Last Admin: 11/02/16 11:08 Dose: 325 mg Sodium Chloride (Sodium Chloride Flush Syringe 10 Ml) 10 ml IV PRN PRN PRN Reason: LINE FLUSH Last Admin: 10/17/16 20:45 Dose: 10 ml Review of Systems Constitutional: other (NR) Exam - Constitutional Vitals: Temp Pulse Resp BP Pulse Ox 99.7 F H 109 H 25 H 103/72 100 11/12/16 16:00 11/12/16 18:00 11/12/16 18:00 11/12/16 18:00 11/12/16 18:00 - EENT ENT: clear oral mucosa - Neck Neck: Present: supple, normal ROM - Respiratory Respiratory effort: normal Respiratory: bilateral: CTA - Cardiovascular Heart Sounds: Present: S1 & S2. Absent: rub, click - Extremities Extremities: pulses symmetrical, No edema Peripheral Pulses: within normal limits - Abdominal General gastrointestinal: Present: soft, non-tender, non-distended, normal bowel sounds Male genitourinary: Present: deferred - Rectal Rectal Exam: deferred - Integumentary Integumentary: Present: clear, warm, dry Results - Labs CBC & Chem 7: 11/12/16 Unknown 11/12/16 Unknown Labs: Abnormal lab results 11/11/16 11/11/16 11/12/16 Range/Units 12:40 17:46 00:17 RBC (3.65-5.03) M/mm3 Hgb (11.8-15.2) gm/dl Hct (35.5-45.6) % MCV (84-94) fl RDW (13.2-15.2) % Plt Count (140-440) K/mm3 Lymphocytes % (Manual) (13.4-35.0) % Nucleated RBC % (0.0-0.9) % Lymphocytes # (Manual) (1.2-5.4) K/mm3 BUN (9-20) mg/dL Creatinine (0.8-1.5) mg/dL Glucose (75-100) mg/dL POC Glucose 139 H 169 H 143 H (70-105) Lactic Acid (0.7-2.0) mmol/L Calcium (8.4-10.2) mg/dL C-Reactive Protein (0.00-1.30) mg/dL 11/12/16 11/12/16 11/12/16 Range/Units 02:00 02:00 05:26 RBC (3.65-5.03) M/mm3 Hgb (11.8-15.2) gm/dl Hct (35.5-45.6) % MCV (84-94) fl RDW (13.2-15.2) % Plt Count (140-440) K/mm3 Lymphocytes % (Manual) (13.4-35.0) % Nucleated RBC % (0.0-0.9) % Lymphocytes # (Manual) (1.2-5.4) K/mm3 BUN (9-20) mg/dL Creatinine (0.8-1.5) mg/dL Glucose (75-100) mg/dL POC Glucose 143 H (70-105) Lactic Acid 3.00 H* (0.7-2.0) mmol/L Calcium (8.4-10.2) mg/dL C-Reactive Protein 16.00 H (0.00-1.30) mg/dL 11/12/16 11/12/16 11/12/16 Range/Units 07:46 12:07 Unknown RBC 2.87 L (3.65-5.03) M/mm3 Hgb 9.0 L (11.8-15.2) gm/dl Hct 27.3 L (35.5-45.6) % MCV 95 H (84-94) fl RDW 17.3 H (13.2-15.2) % Plt Count 56 L (140-440) K/mm3 Lymphocytes % (Manual) 7.0 L (13.4-35.0) % Nucleated RBC % 6.0 H (0.0-0.9) % Lymphocytes # (Manual) 0.6 L (1.2-5.4) K/mm3 BUN (9-20) mg/dL Creatinine (0.8-1.5) mg/dL Glucose (75-100) mg/dL POC Glucose 145 H 158 H (70-105) Lactic Acid (0.7-2.0) mmol/L Calcium (8.4-10.2) mg/dL C-Reactive Protein (0.00-1.30) mg/dL 11/12/16 Range/Units Unknown RBC (3.65-5.03) M/mm3 Hgb (11.8-15.2) gm/dl Hct (35.5-45.6) % MCV (84-94) fl RDW (13.2-15.2) % Plt Count (140-440) K/mm3 Lymphocytes % (Manual) (13.4-35.0) % Nucleated RBC % (0.0-0.9) % Lymphocytes # (Manual) (1.2-5.4) K/mm3 BUN 42 H (9-20) mg/dL Creatinine 1.7 H (0.8-1.5) mg/dL Glucose 152 H (75-100) mg/dL POC Glucose (70-105) Lactic Acid (0.7-2.0) mmol/L Calcium 7.8 L (8.4-10.2) mg/dL C-Reactive Protein (0.00-1.30) mg/dL Assessment and Plan - Patient Problems (1) Anemia Current Visit: Yes Status: Acute Qualifiers: Anemia type: unspecified type Iron deficiency anemia type: I Vitamin B12 deficiency anemia type: V Folate deficiency anemia type: F Bone marrow failure anemia type: B Hemolytic anemia type: H Other causes of anemia: O Chronic kidney disease stage: C Qualified Code(s): D64.9 - Anemia, unspecified Plan to address problem: will replace if less than 7.0 (2) Leucopenia Current Visit: Yes Status: Acute Qualifiers: Leukopenia type: unspecified Neutropenia type: N Qualified Code(s): D72.819 - Decreased white blood cell count, unspecified Plan to address problem: not binding. (3) Renal failure Current Visit: Yes Status: Acute Qualifiers: Renal failure chronicity: acute Acute renal failure type: unspecified Chronic kidney disease stage: C Qualified Code(s): N17.9 - Acute kidney failure, unspecified Plan to address problem: See w/up, and renal service. see notes Follow coordinator hotels.
[2016-11-13] MEDS: NOVOLOG SUB-Q SCH ×3 (06:42→14:02)
[2016-11-13 06:44] LABS: Hematocrit 25.9 % (35.5-45.6); Hemoglobin 8.4 gm/dl (11.8-15.2); Mean Corpuscular HGB Conc 32 % (32-34); Mean Corpuscular Hemoglobin 31 pg (28-32); Mean Corpuscular Volume 95 fl (84-94); Red Blood Count 2.73 M/mm3 (3.65-5.03); Red Cell Distribution Width 17.9 % (13.2-15.2); White Blood Count 4.9 K/mm3 (4.5-11.0)
[2016-11-13 06:48] LABS: Platelet Count 51 K/mm3 (140-440)
[2016-11-13 06:52] LABS: BUN/Creatinine Ratio 26.52; Calcium 7.8 mg/dL (8.4-10.2); Chloride 100.9 mmol/L (98-107); Phosphorous 4.4 mg/dL (2.5-4.5); Potassium 3.7 mmol/L (3.6-5.0)
[2016-11-13] MEDS: LEVOPHED 8 MG in NACL 0.9% 250ML 242 ML IV SCH (08:00)
[2016-11-13 08:20] LABS: Basophils % (Manual) 0 % (0.0-1.8); Blastocytes % (Manual) 0 %; Eosinophils % (Manual) 0 % (0.0-4.3); Total Cells Counted Percent 0
[2016-11-13 08:21] LABS: Anisocytosis 1+; Target Cells Few
[2016-11-13 08:22] LABS: Diff Status Complete; Giant Platelets Few; Hypochromasia Few; Poikilocytosis 1+
[2016-11-13] MEDS: LOPRESSOR PO SCH (09:22)
[2016-11-13] MEDS: PEPCID PO SCH (09:23)
--- NOTE | 2016-11-13 10:00 | Progress Note ---
Assessment and Plan (1) Renal failure Current Visit: Yes Status: Acute Qualifiers: Renal failure chronicity: acute Acute renal failure type: unspecified Chronic kidney disease stage: C Qualified Code(s): N17.9 - Acute kidney failure, unspecified Plan to address problem: no indication for HD today On Levophed drip Strict I/O monitoring Avoid Nephrotoxic agents Renally dose medications Obtain daily weights (2) Acute respiratory failure Current Visit: Yes Status: Acute Qualifiers: Respiratory failure complication: hypoxia Qualified Code(s): J96.01 - Acute respiratory failure with hypoxia Plan to address problem: on the vent via trach as per Pulmonary (3) Anemia Current Visit: Yes Status: Acute Qualifiers: Anemia type: unspecified type Iron deficiency anemia type: I Vitamin B12 deficiency anemia type: V Folate deficiency anemia type: F Bone marrow failure anemia type: B Hemolytic anemia type: H Other causes of anemia: O Chronic kidney disease stage: C Qualified Code(s): D64.9 - Anemia, unspecified Plan to address problem: Monitor labs and transfuse as needed Hematology onboard (4) Thrombocytopenia Current Visit: Yes Status: Acute Plan to address problem: per hematology (5) Atrial fibrillation Current Visit: Yes Status: Acute Qualifiers: Atrial fibrillation type: A Plan to address problem: On Metoprolol Subjective Date of service: 11/13/16 Principal diagnosis: Sepsis Syndrome; MAHA; RAJESH; CHF; TTP Interval history: on the vent, no family at bedside Objective - Vital Signs Vital signs: Vital Signs - 12hr 11/12/16 11/12/16 11/12/16 22:00 22:15 22:23 Temperature Pulse Rate 117 H 108 H 108 H Pulse Rate [ From Monitor] Respiratory 23 24 Rate Blood Pressure 92/62 97/60 97/60 O2 Sat by Pulse 100 100 Oximetry O2 Sat by Pulse Oximetry [ Assessment] 11/12/16 11/12/16 11/12/16 22:30 22:45 23:00 Temperature Pulse Rate 106 H 110 H 108 H Pulse Rate [ From Monitor] Respiratory 24 25 H 27 H Rate Blood Pressure 90/55 91/63 91/59 O2 Sat by Pulse 100 100 100 Oximetry O2 Sat by Pulse Oximetry [ Assessment] 11/12/16 11/12/16 11/12/16 23:15 23:30 23:38 Temperature Pulse Rate 106 H 105 H 105 H Pulse Rate [ From Monitor] Respiratory 25 H 25 H Rate Blood Pressure 90/53 84/56 84/56 O2 Sat by Pulse 100 96 100 Oximetry O2 Sat by Pulse Oximetry [ Assessment] 11/12/16 11/13/16 11/13/16 23:45 00:00 00:15 Temperature 98.4 F Pulse Rate 108 H 106 H 107 H Pulse Rate [ 117 H From Monitor] Respiratory 30 H 27 H 25 H Rate Blood Pressure 90/58 88/59 90/59 O2 Sat by Pulse 100 100 100 Oximetry O2 Sat by Pulse Oximetry [ Assessment] 11/13/16 11/13/16 11/13/16 00:30 00:45 01:00 Temperature Pulse Rate 106 H 109 H 108 H Pulse Rate [ From Monitor] Respiratory 25 H 28 H 23 Rate Blood Pressure 87/54 90/59 92/62 O2 Sat by Pulse 100 100 100 Oximetry O2 Sat by Pulse Oximetry [ Assessment] 11/13/16 11/13/16 11/13/16 01:15 01:30 01:36 Temperature Pulse Rate 106 H 109 H Pulse Rate [ From Monitor] Respiratory 28 H 29 H Rate Blood Pressure 88/55 122/71 O2 Sat by Pulse 100 96 Oximetry O2 Sat by Pulse 98 Oximetry [ Assessment] 11/13/16 11/13/16 11/13/16 01:45 02:00 02:15 Temperature Pulse Rate 113 H 111 H 110 H Pulse Rate [ From Monitor] Respiratory 29 H 30 H 28 H Rate Blood Pressure 105/72 93/61 92/63 O2 Sat by Pulse 100 100 100 Oximetry O2 Sat by Pulse Oximetry [ Assessment] 11/13/16 11/13/16 11/13/16 02:30 02:45 03:00 Temperature Pulse Rate 110 H 106 H 110 H Pulse Rate [ From Monitor] Respiratory 28 H 26 H 30 H Rate Blood Pressure 96/62 93/56 109/55 O2 Sat by Pulse 100 100 100 Oximetry O2 Sat by Pulse Oximetry [ Assessment] 11/13/16 11/13/16 11/13/16 03:15 03:30 03:45 Temperature Pulse Rate 110 H 109 H 107 H Pulse Rate [ From Monitor] Respiratory 31 H 29 H 23 Rate Blood Pressure 101/73 99/67 97/65 O2 Sat by Pulse 100 100 100 Oximetry O2 Sat by Pulse Oximetry [ Assessment] 11/13/16 11/13/1617 04:00 04:16 04:30 Temperature 98.6 F Pulse Rate 114 H 115 H 119 H Pulse Rate [ 120 H From Monitor] Respiratory 30 H 29 H 41 H Rate Blood Pressure 126/82 151/124 97/80 O2 Sat by Pulse 100 100 Oximetry O2 Sat by Pulse Oximetry [ Assessment] 11/13/16 11/13/16 11/13/16 04:45 05:00 05:02 Temperature Pulse Rate 112 H 113 H 114 H Pulse Rate [ From Monitor] Respiratory 30 H 30 H Rate Blood Pressure 128/71 112/77 128/71 O2 Sat by Pulse 90 100 Oximetry O2 Sat by Pulse Oximetry [ Assessment] 11/13/16 11/13/16 11/13/16 05:15 05:30 05:45 Temperature Pulse Rate 111 H 110 H 109 H Pulse Rate [ From Monitor] Respiratory 32 H 30 H 27 H Rate Blood Pressure 105/66 109/58 105/55 O2 Sat by Pulse 100 Oximetry O2 Sat by Pulse Oximetry [ Assessment] 11/13/16 11/13/16 11/13/16 06:00 06:15 06:30 Temperature Pulse Rate 120 H 110 H 110 H Pulse Rate [ From Monitor] Respiratory 24 30 H 29 H Rate Blood Pressure 94/53 101/59 99/59 O2 Sat by Pulse 96 Oximetry O2 Sat by Pulse Oximetry [ Assessment] 11/13/16 11/13/16 11/13/16 06:45 07:00 07:15 Temperature Pulse Rate 108 H 110 H 112 H Pulse Rate [ From Monitor] Respiratory 31 H 22 36 H Rate Blood Pressure 95/56 92/55 101/57 O2 Sat by Pulse Oximetry O2 Sat by Pulse Oximetry [ Assessment] 11/13/16 11/13/16 11/13/16 07:30 07:45 08:00 Temperature 98.1 F Pulse Rate 111 H 110 H 108 H Pulse Rate [ 109 H From Monitor] Respiratory 33 H 28 H 30 H Rate Blood Pressure 106/62 97/64 102/58 O2 Sat by Pulse 100 Oximetry O2 Sat by Pulse Oximetry [ Assessment] 11/13/16 11/13/16 11/13/16 09:15 09:22 09:36 Temperature Pulse Rate 110 H 111 H Pulse Rate [ From Monitor] Respiratory Rate Blood Pressure 92/55 92/55 O2 Sat by Pulse 100 100 Oximetry O2 Sat by Pulse 100 Oximetry [ Assessment] - General Appearance General appearance: other (on the vent) EENT: mucous membranes dry Neck: no JVD, no carotid bruit Respiratory: Present: Decreased Breath Sounds Cardiology: regular Gastrointestinal: normoactive bowel sounds, no distended, no guarding Integumentary: no rash, warm and dry Neurologic: other (does not follow commands) Musculoskeletal: other (1-2+ pitting edema in BLE) Psychiatric: other (does not answer questions) - Lab 11/13/16 05:30 11/13/16 05:30 Most recent lab results Calcium 7.8 mg/dL (8.4-10.2) L 11/13/16 05:30 Phosphorus 4.40 mg/dL (2.5-4.5) D 11/13/16 05:30
--- NOTE | 2016-11-13 14:26 | Progress Note ---
Assessment and Plan (1) Acute respiratory failure Current Visit: Yes Status: Acute Qualifiers: Respiratory failure complication: R Plan to address problem: (ABG shows acidosis and hence need for increased minute ventilation at least partially explaining the air huger - also TV set at 450mls) - increase set rate to 550 mls and increased set rate to 30/min - repeat ABG in a few hours abnd adjust as necessary - will supplement bicarbonate also - continue to rest on AC qhs - resume daily T-piece trials as tolerated once more stable (if fails try PSV before resting on AC) - continue aspiration precautions / VAP bundles - continue bronchodilators and pulmonary toilet - continue to wean oxygen for sats > 94% - CXR reviewed; no new process but still pulmonary edema pattern (2) RAJESH (acute kidney injury) Current Visit: Yes Status: Acute Plan to address problem: - 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 - continue HD/UF per nephrology recs - follow I's and O's - correct electrolytes prn - continue to avoid nephrotoxins - will add alkalanized fluids (D5W with 3 amps NAHCO3 at 50mls/hr X 2 liters) - per nephrology otherwise (3) Metabolic acidosis Current Visit: Yes Status: Acute Plan to address problem: - mixed etiology - Lactic Acidosis component resolved - sepsis may have been driving force for that - RAJESH component - continue HD/UF per nephrology prescription - completed Anti-infectives course and following clinically - will reculture if clinically necessary (BP good and afebrile; i feel acidosis is currently related to renal failure) (4) CHF (congestive heart failure) Current Visit: Yes Status: Acute Qualifiers: Congestive heart failure type: C Congestive heart failure chronicity: C Plan to address problem: - ECHO consistent with possible infiltrating disease - EF 30& - will look to HD/UF for volume clearance as not responsive to diuretics - per cardiology otherwise (5) Pancytopenia Current Visit: Yes Status: Acute Plan to address problem: - hematology on case - s/p plasmapheresis - may need bone marrow evaluation - follow platelet count (6) Acute encephalopathy Current Visit: Yes Status: Acute Plan to address problem: - CT brain negative - likely toxic-metabolic encephalopathy element also - MRI abnormal - neurology evaluation ongoing - following clinically (7) Hypoglycemia Current Visit: Yes Status: Acute Plan to address problem: - improved - suspect sepsis related element - completed systemic steroid taper - also continue enteral nutrition - continue glycemic control via SSI at this point (8) Sepsis syndrome Current Visit: Yes Status: Acute Plan to address problem: - s/p antibiotic course - ID on case - CRP and lactate much improved - JONATHAN negative - following clinically - c-diff assay was negative - back on levophed but mostly for dialysis support (9) Discharge planning issues Current Visit: Yes Status: Acute Plan to address problem: - he remains critically ill on life sustaining interventions including MVS and at risk for further deterioration including ...34' CCT Subjective Date of service: 11/13/16 Principal diagnosis: Sepsis Syndrome; MAHA; RAJESH; CHF; TTP Interval history: Seen and examined at bedside; 24 hour events reviewed; nursing and respiratory care staff consulted; no adverse overnight events reported to me; significantly increased work of breathing today; also de-saturating; no emesis or overt aspiration; no seizure activity Objective Vital Signs - 12hr 11/13/16 11/13/16 11/13/16 02:30 02:45 03:00 Temperature Pulse Rate 110 H 106 H 110 H Pulse Rate [ From Monitor] Respiratory 28 H 26 H 30 H Rate Blood Pressure 96/62 93/56 109/55 O2 Sat by Pulse 100 100 100 Oximetry O2 Sat by Pulse Oximetry [ Assessment] 11/13/16 11/13/16 11/13/16 03:15 03:30 03:45 Temperature Pulse Rate 110 H 109 H 107 H Pulse Rate [ From Monitor] Respiratory 31 H 29 H 23 Rate Blood Pressure 101/73 99/67 97/65 O2 Sat by Pulse 100 100 100 Oximetry O2 Sat by Pulse Oximetry [ Assessment] 11/13/16 11/13/16 11/13/16 04:00 04:16 04:30 Temperature 98.6 F Pulse Rate 114 H 115 H 119 H Pulse Rate [ 120 H From Monitor] Respiratory 30 H 29 H 41 H Rate Blood Pressure 126/82 151/124 97/80 O2 Sat by Pulse 100 100 Oximetry O2 Sat by Pulse Oximetry [ Assessment] 11/13/16 11/13/16 11/13/16 04:45 05:00 05:02 Temperature Pulse Rate 112 H 113 H 114 H Pulse Rate [ From Monitor] Respiratory 30 H 30 H Rate Blood Pressure 128/71 112/77 128/71 O2 Sat by Pulse 90 100 Oximetry O2 Sat by Pulse Oximetry [ Assessment] 11/13/16 11/13/16 11/13/16 05:15 05:30 05:45 Temperature Pulse Rate 111 H 110 H 109 H Pulse Rate [ From Monitor] Respiratory 32 H 30 H 27 H Rate Blood Pressure 105/66 109/58 105/55 O2 Sat by Pulse 100 Oximetry O2 Sat by Pulse Oximetry [ Assessment] 11/13/16 11/13/16 11/13/16 06:00 06:15 06:30 Temperature Pulse Rate 120 H 110 H 110 H Pulse Rate [ From Monitor] Respiratory 24 30 H 29 H Rate Blood Pressure 94/53 101/59 99/59 O2 Sat by Pulse 96 Oximetry O2 Sat by Pulse Oximetry [ Assessment] 11/13/16 11/13/16 11/13/16 06:45 07:00 07:15 Temperature Pulse Rate 108 H 110 H 112 H Pulse Rate [ From Monitor] Respiratory 31 H 22 36 H Rate Blood Pressure 95/56 92/55 101/57 O2 Sat by Pulse Oximetry O2 Sat by Pulse Oximetry [ Assessment] 11/13/16 11/13/16 11/13/16 07:30 07:45 08:00 Temperature 98.1 F Pulse Rate 111 H 110 H 108 H Pulse Rate [ 109 H From Monitor] Respiratory 33 H 28 H 30 H Rate Blood Pressure 106/62 97/64 102/58 O2 Sat by Pulse 100 Oximetry O2 Sat by Pulse Oximetry [ Assessment] 11/13/16 11/13/16 11/13/16 08:15 08:30 08:45 Temperature Pulse Rate 109 H 110 H 110 H Pulse Rate [ From Monitor] Respiratory 29 H 31 H 28 H Rate Blood Pressure 105/55 99/56 101/53 O2 Sat by Pulse 100 100 100 Oximetry O2 Sat by Pulse Oximetry [ Assessment] 11/13/16 11/13/16 11/13/16 09:00 09:15 09:22 Temperature Pulse Rate 112 H 110 H 111 H Pulse Rate [ From Monitor] Respiratory 34 H 28 H Rate Blood Pressure 92/55 90/55 92/55 O2 Sat by Pulse 100 100 Oximetry O2 Sat by Pulse 100 Oximetry [ Assessment] 11/13/16 11/13/16 11/13/16 09:30 09:36 09:45 Temperature Pulse Rate 115 H 109 H Pulse Rate [ From Monitor] Respiratory 28 H 30 H Rate Blood Pressure 90/55 103/66 O2 Sat by Pulse 75 L 100 100 Oximetry O2 Sat by Pulse Oximetry [ Assessment] 11/13/16 11/13/16 11/13/16 10:00 10:15 10:30 Temperature Pulse Rate 109 H 110 H 110 H Pulse Rate [ From Monitor] Respiratory 30 H 29 H 31 H Rate Blood Pressure 93/66 97/67 104/68 O2 Sat by Pulse 100 Oximetry O2 Sat by Pulse Oximetry [ Assessment] 11/13/16 11/13/16 11/13/16 10:45 11:00 11:15 Temperature Pulse Rate 112 H 112 H 113 H Pulse Rate [ From Monitor] Respiratory 30 H 33 H 30 H Rate Blood Pressure 112/66 104/70 107/61 O2 Sat by Pulse 97 100 Oximetry O2 Sat by Pulse Oximetry [ Assessment] 11/13/16 11/13/16 11/13/16 11:30 11:45 12:00 Temperature 99 F Pulse Rate 113 H 114 H 112 H Pulse Rate [ From Monitor] Respiratory 33 H 31 H 30 H Rate Blood Pressure 107/63 116/64 103/60 O2 Sat by Pulse 100 100 Oximetry O2 Sat by Pulse Oximetry [ Assessment] 11/13/16 12:33 Temperature Pulse Rate 113 H Pulse Rate [ From Monitor] Respiratory Rate Blood Pressure 101/65 O2 Sat by Pulse 100 Oximetry O2 Sat by Pulse Oximetry [ Assessment] Constitutional: no acute distress, other (lethargic to encephalopathic) Eyes: non-icteric ENT: oropharynx moist Neck: supple, no lymphadenopathy Effort: mildly labored Ascultation: Bilateral: diminished breath sounds, rales Cardiovascular: irregular rhythm Gastrointestinal: normoactive bowel sounds, soft, non-tender, non-distended Integumentary: normal Extremities: no cyanosis, pulses normal, no ischemia or petechiae, edema Neurologic: non-focal exam (grossly), pupils equal and round, unable to assess Psychiatric: other (unable to assess) CBC and BMP: 11/13/16 05:30 11/13/16 05:30 ABG, PT/INR, D-dimer: ABG POC ABG pH 7.398 (7.35-7.45) 11/08/16 12:53 POC ABG pCO2 52.3 (35-45) H 11/08/16 12:53 POC ABG pO2 80 (80-105) 11/08/16 12:53 POC ABG HCO3 32.2 11/08/16 12:53 POC ABG Total CO2 34 11/08/16 12:53 POC ABG O2 Sat 95 11/08/16 12:53 PT/INR, D-dimer PT 20.3 Sec. (12.2-14.9) H 11/04/16 05:40 INR 1.74 (0.87-1.13) H 11/04/16 05:40 Abnormal lab findings: Abnormal Labs 10/13/16 10/13/16 10/13/16 14:50 21:40 22:05 WBC RBC Hgb Hct MCV MCHC RDW Plt Count Seg Neuts % (Manual) Lymphocytes % (Manual) Nucleated RBC % Seg Neutrophils # Man Lymphocytes # (Manual) Haptoglobin PT INR Fibrinogen Lupus Anticoagulant LA PTT Baseline POC ABG pH POC ABG pCO2 POC ABG pO2 Sodium Potassium Chloride Carbon Dioxide BUN Creatinine Glucose POC Glucose 52 L 43 L Lactic Acid Uric Acid Calcium Phosphorus Iron TIBC Erythropoietin Ferritin Total Bilirubin Direct Bilirubin AST ALT Alkaline Phosphatase Lactate Dehydrogenase C-Reactive Protein Serum Total Protein 5.6 L Total Protein Albumin 2.2 L Tgbvv-1-Yazjcnmsz 0.5 H Abnorm Protein Band 1 1.4 H PEP Interpretation see below H Crossmatch 10/13/16 10/14/16 10/14/16 23:18 03:00 03:00 WBC RBC Hgb Hct MCV MCHC RDW Plt Count Seg Neuts % (Manual) Lymphocytes % (Manual) Nucleated RBC % Seg Neutrophils # Man Lymphocytes # (Manual) Haptoglobin PT INR Fibrinogen Lupus Anticoagulant see below H LA PTT Baseline 55 H POC ABG pH POC ABG pCO2 POC ABG pO2 Sodium Potassium Chloride Carbon Dioxide BUN Creatinine Glucose POC Glucose 113 H Lactic Acid Uric Acid Calcium Phosphorus Iron TIBC Erythropoietin Ferritin Total Bilirubin Direct Bilirubin AST ALT Alkaline Phosphatase Lactate Dehydrogenase 406 H C-Reactive Protein Serum Total Protein Total Protein Albumin Hiukc-9-Tkagjeslb Abnorm Protein Band 1 PEP Interpretation Crossmatch 10/14/16 10/14/16 10/14/16 03:00 03:00 04:34 WBC 1.3 L* RBC 2.33 L Hgb 7.3 L Hct 21.7 L MCV MCHC RDW 19.8 H Plt Count 99 L Seg Neuts % (Manual) Lymphocytes % (Manual) 3.0 L Nucleated RBC % Seg Neutrophils # Man 0.9 L Lymphocytes # (Manual) 0.0 L Haptoglobin PT INR Fibrinogen Lupus Anticoagulant LA PTT Baseline POC ABG pH POC ABG pCO2 POC ABG pO2 Sodium Potassium Chloride Carbon Dioxide 18 L BUN 73 H Creatinine 9.8 H Glucose 59 L POC Glucose Lactic Acid Uric Acid 8.0 H Calcium 8.2 L Phosphorus 6.60 H Iron 13 L TIBC 160 L Erythropoietin Ferritin Total Bilirubin Direct Bilirubin AST ALT Alkaline Phosphatase Lactate Dehydrogenase C-Reactive Protein Serum Total Protein Total Protein Albumin Bjegt-9-Ijfaztyes Abnorm Protein Band 1 PEP Interpretation Crossmatch 10/14/16 10/14/16 10/14/16 05:27 06:29 07:34 WBC RBC Hgb Hct MCV MCHC RDW Plt Count Seg Neuts % (Manual) Lymphocytes % (Manual) Nucleated RBC % Seg Neutrophils # Man Lymphocytes # (Manual) Haptoglobin PT INR Fibrinogen Lupus Anticoagulant LA PTT Baseline POC ABG pH POC ABG pCO2 POC ABG pO2 Sodium Potassium Chloride Carbon Dioxide BUN Creatinine Glucose POC Glucose < 40 L 63 L < 40 L Lactic Acid Uric Acid Calcium Phosphorus Iron TIBC Erythropoietin Ferritin Total Bilirubin Direct Bilirubin AST ALT Alkaline Phosphatase Lactate Dehydrogenase C-Reactive Protein Serum Total Protein Total Protein Albumin Uskyz-7-Gzzxgrscy Abnorm Protein Band 1 PEP Interpretation Crossmatch 10/14/16 10/14/16 10/14/16 09:58 09:58 09:58 WBC RBC Hgb Hct MCV MCHC RDW Plt Count Seg Neuts % (Manual) Lymphocytes % (Manual) Nucleated RBC % Seg Neutrophils # Man Lymphocytes # (Manual) Haptoglobin 218 H PT INR Fibrinogen 557 H Lupus Anticoagulant LA PTT Baseline POC ABG pH POC ABG pCO2 POC ABG pO2 Sodium Potassium Chloride Carbon Dioxide BUN Creatinine Glucose POC Glucose Lactic Acid Uric Acid Calcium Phosphorus Iron TIBC Erythropoietin Ferritin Total Bilirubin 1.30 H Direct Bilirubin 1.1 H AST ALT Alkaline Phosphatase Lactate Dehydrogenase C-Reactive Protein Serum Total Protein Total Protein Albumin Baeck-7-Uygeymomh Abnorm Protein Band 1 PEP Interpretation Crossmatch 10/14/16 10/14/16 10/14/16 10:57 11:15 12:52 WBC RBC Hgb Hct MCV MCHC RDW Plt Count Seg Neuts % (Manual) Lymphocytes % (Manual) Nucleated RBC % Seg Neutrophils # Man Lymphocytes # (Manual) Haptoglobin PT INR Fibrinogen Lupus Anticoagulant LA PTT Baseline POC ABG pH POC ABG pCO2 POC ABG pO2 Sodium Potassium Chloride Carbon Dioxide BUN Creatinine Glucose POC Glucose < 40 L < 40 L Lactic Acid 9.60 H* Uric Acid Calcium Phosphorus Iron TIBC Erythropoietin Ferritin Total Bilirubin Direct Bilirubin AST ALT Alkaline Phosphatase Lactate Dehydrogenase C-Reactive Protein Serum Total Protein Total Protein Albumin Lkucb-9-Nxcfvdbdr Abnorm Protein Band 1 PEP Interpretation Crossmatch 10/14/16 10/14/16 10/14/16 12:52 13:17 14:12 WBC RBC Hgb Hct MCV MCHC RDW Plt Count Seg Neuts % (Manual) Lymphocytes % (Manual) Nucleated RBC % Seg Neutrophils # Man Lymphocytes # (Manual) Haptoglobin PT INR Fibrinogen Lupus Anticoagulant LA PTT Baseline POC ABG pH POC ABG pCO2 POC ABG pO2 Sodium Potassium Chloride Carbon Dioxide BUN Creatinine Glucose POC Glucose < 40 L < 40 L Lactic Acid Uric Acid Calcium Phosphorus Iron TIBC Erythropoietin Ferritin Total Bilirubin Direct Bilirubin AST ALT Alkaline Phosphatase Lactate Dehydrogenase C-Reactive Protein 40.40 H Serum Total Protein Total Protein Albumin Gnvze-1-Mjxqisowc Abnorm Protein Band 1 PEP Interpretation Crossmatch 10/14/16 10/14/16 10/14/16 15:02 15:33 15:33 WBC RBC Hgb Hct MCV MCHC RDW Plt Count Seg Neuts % (Manual) Lymphocytes % (Manual) Nucleated RBC % Seg Neutrophils # Man Lymphocytes # (Manual) Haptoglobin PT INR Fibrinogen Lupus Anticoagulant LA PTT Baseline POC ABG pH POC ABG pCO2 POC ABG pO2 Sodium Potassium Chloride Carbon Dioxide BUN Creatinine Glucose 19 L* POC Glucose < 40 L Lactic Acid 11.60 H* Uric Acid Calcium Phosphorus Iron TIBC Erythropoietin Ferritin Total Bilirubin Direct Bilirubin AST ALT Alkaline Phosphatase Lactate Dehydrogenase C-Reactive Protein Serum Total Protein Total Protein Albumin Agmba-7-Fnqdkmrml Abnorm Protein Band 1 PEP Interpretation Crossmatch 10/14/16 10/14/16 10/14/16 17:14 18:03 21:25 WBC RBC Hgb Hct MCV MCHC RDW Plt Count Seg Neuts % (Manual) Lymphocytes % (Manual) Nucleated RBC % Seg Neutrophils # Man Lymphocytes # (Manual) Haptoglobin PT 28.9 H INR 2.71 H Fibrinogen Lupus Anticoagulant LA PTT Baseline POC ABG pH POC ABG pCO2 POC ABG pO2 Sodium Potassium Chloride Carbon Dioxide BUN Creatinine Glucose POC Glucose < 40 L 57 L Lactic Acid Uric Acid Calcium Phosphorus Iron TIBC Erythropoietin Ferritin Total Bilirubin Direct Bilirubin AST ALT Alkaline Phosphatase Lactate Dehydrogenase C-Reactive Protein Serum Total Protein Total Protein Albumin Ymgho-5-Nfwsxzxws Abnorm Protein Band 1 PEP Interpretation Crossmatch 10/15/16 10/15/16 10/15/16 05:32 05:35 05:35 WBC RBC 2.62 L Hgb 8.1 L Hct 25.8 L MCV 98 H D MCHC 31 L RDW 21.2 H Plt Count 61 L Seg Neuts % (Manual) 27.0 L Lymphocytes % (Manual) 10.0 L Nucleated RBC % 2.0 H Seg Neutrophils # Man Lymphocytes # (Manual) 0.8 L Haptoglobin PT INR Fibrinogen Lupus Anticoagulant LA PTT Baseline POC ABG pH POC ABG pCO2 POC ABG pO2 Sodium Potassium Chloride Carbon Dioxide BUN Creatinine Glucose POC Glucose < 40 L Lactic Acid Uric Acid Calcium Phosphorus Iron TIBC Erythropoietin Ferritin Total Bilirubin Direct Bilirubin AST ALT Alkaline Phosphatase Lactate Dehydrogenase 3871 H C-Reactive Protein Serum Total Protein Total Protein Albumin Ztrst-8-Qzbrsmleq Abnorm Protein Band 1 PEP Interpretation Crossmatch 10/15/16 10/15/16 10/15/16 05:35 05:35 05:35 WBC RBC Hgb Hct MCV MCHC RDW Plt Count Seg Neuts % (Manual) Lymphocytes % (Manual) Nucleated RBC % Seg Neutrophils # Man Lymphocytes # (Manual) Haptoglobin PT INR Fibrinogen Lupus Anticoagulant LA PTT Baseline POC ABG pH POC ABG pCO2 POC ABG pO2 Sodium 136 L Potassium 5.3 H D Chloride 91.4 L Carbon Dioxide 6 L* D BUN 57 H Creatinine 7.1 H Glucose 11 L* POC Glucose Lactic Acid 13.60 H* Uric Acid Calcium 7.7 L Phosphorus 10.10 H D Iron TIBC 166 L Erythropoietin Ferritin 9562.0 H Total Bilirubin Direct Bilirubin AST ALT Alkaline Phosphatase Lactate Dehydrogenase C-Reactive Protein Serum Total Protein Total Protein Albumin Srtmr-0-Iylmzglip Abnorm Protein Band 1 PEP Interpretation Crossmatch 10/15/16 10/15/16 10/15/16 05:51 06:22 06:52 WBC RBC Hgb Hct MCV MCHC RDW Plt Count Seg Neuts % (Manual) Lymphocytes % (Manual) Nucleated RBC % Seg Neutrophils # Man Lymphocytes # (Manual) Haptoglobin PT INR Fibrinogen Lupus Anticoagulant LA PTT Baseline POC ABG pH 7.189 L POC ABG pCO2 28.9 L POC ABG pO2 Sodium Potassium Chloride Carbon Dioxide BUN Creatinine Glucose POC Glucose 59 L 111 H Lactic Acid Uric Acid Calcium Phosphorus Iron TIBC Erythropoietin Ferritin Total Bilirubin Direct Bilirubin AST ALT Alkaline Phosphatase Lactate Dehydrogenase C-Reactive Protein Serum Total Protein Total Protein Albumin Wsyqy-9-Gncnrsofq Abnorm Protein Band 1 PEP Interpretation Crossmatch 10/15/16 10/15/16 10/15/16 08:00 09:57 11:42 WBC RBC Hgb Hct MCV MCHC RDW Plt Count Seg Neuts % (Manual) Lymphocytes % (Manual) Nucleated RBC % Seg Neutrophils # Man Lymphocytes # (Manual) Haptoglobin PT INR Fibrinogen Lupus Anticoagulant LA PTT Baseline POC ABG pH POC ABG pCO2 POC ABG pO2 Sodium Potassium Chloride Carbon Dioxide BUN Creatinine Glucose POC Glucose 63 L 143 H 203 H Lactic Acid Uric Acid Calcium Phosphorus Iron TIBC Erythropoietin Ferritin Total Bilirubin Direct Bilirubin AST ALT Alkaline Phosphatase Lactate Dehydrogenase C-Reactive Protein Serum Total Protein Total Protein Albumin Qbckk-0-Wloahdqcm Abnorm Protein Band 1 PEP Interpretation Crossmatch 10/15/16 10/15/16 10/15/16 12:00 12:00 13:00 WBC RBC Hgb Hct MCV MCHC RDW Plt Count Seg Neuts % (Manual) Lymphocytes % (Manual) Nucleated RBC % Seg Neutrophils # Man Lymphocytes # (Manual) Haptoglobin <15 L PT INR Fibrinogen Lupus Anticoagulant LA PTT Baseline POC ABG pH POC ABG pCO2 POC ABG pO2 Sodium Potassium Chloride Carbon Dioxide BUN Creatinine Glucose POC Glucose 136 H Lactic Acid 16.30 H* Uric Acid Calcium Phosphorus Iron TIBC Erythropoietin Ferritin Total Bilirubin Direct Bilirubin AST ALT Alkaline Phosphatase Lactate Dehydrogenase C-Reactive Protein Serum Total Protein Total Protein Albumin Womca-3-Rqxtpakmk Abnorm Protein Band 1 PEP Interpretation Crossmatch 10/15/16 10/15/16 10/15/16 14:06 15:15 16:23 WBC RBC Hgb Hct MCV MCHC RDW Plt Count Seg Neuts % (Manual) Lymphocytes % (Manual) Nucleated RBC % Seg Neutrophils # Man Lymphocytes # (Manual) Haptoglobin PT INR Fibrinogen Lupus Anticoagulant LA PTT Baseline POC ABG pH POC ABG pCO2 POC ABG pO2 Sodium Potassium Chloride Carbon Dioxide BUN Creatinine Glucose POC Glucose 132 H 64 L Lactic Acid 20.40 H* Uric Acid Calcium Phosphorus Iron TIBC Erythropoietin Ferritin Total Bilirubin Direct Bilirubin AST ALT Alkaline Phosphatase Lactate Dehydrogenase C-Reactive Protein Serum Total Protein Total Protein Albumin Jbpoy-0-Csrurckxb Abnorm Protein Band 1 PEP Interpretation Crossmatch 10/15/16 10/15/16 10/15/16 16:40 17:00 17:10 WBC RBC Hgb Hct MCV MCHC RDW Plt Count Seg Neuts % (Manual) Lymphocytes % (Manual) Nucleated RBC % Seg Neutrophils # Man Lymphocytes # (Manual) Haptoglobin PT INR Fibrinogen Lupus Anticoagulant LA PTT Baseline POC ABG pH 7.323 L POC ABG pCO2 25.8 L POC ABG pO2 135 H Sodium Potassium Chloride Carbon Dioxide BUN Creatinine Glucose POC Glucose 159 H Lactic Acid 20.20 H* Uric Acid Calcium Phosphorus Iron TIBC Erythropoietin Ferritin Total Bilirubin Direct Bilirubin AST ALT Alkaline Phosphatase Lactate Dehydrogenase C-Reactive Protein Serum Total Protein Total Protein Albumin Lnsmb-1-Jsljedbnx Abnorm Protein Band 1 PEP Interpretation Crossmatch 10/15/16 10/15/16 10/15/16 17:46 17:53 18:45 WBC RBC Hgb Hct MCV MCHC RDW Plt Count Seg Neuts % (Manual) Lymphocytes % (Manual) Nucleated RBC % Seg Neutrophils # Man Lymphocytes # (Manual) Haptoglobin PT INR Fibrinogen Lupus Anticoagulant LA PTT Baseline POC ABG pH POC ABG pCO2 POC ABG pO2 Sodium Potassium Chloride Carbon Dioxide BUN Creatinine Glucose POC Glucose 126 H 143 H Lactic Acid 21.40 H* Uric Acid Calcium Phosphorus Iron TIBC Erythropoietin Ferritin Total Bilirubin Direct Bilirubin AST ALT Alkaline Phosphatase Lactate Dehydrogenase C-Reactive Protein Serum Total Protein Total Protein Albumin Rbrne-5-Ymmjiydpt Abnorm Protein Band 1 PEP Interpretation Crossmatch 10/15/16 10/15/16 10/16/16 20:03 22:59 00:06 WBC RBC Hgb Hct MCV MCHC RDW Plt Count Seg Neuts % (Manual) Lymphocytes % (Manual) Nucleated RBC % Seg Neutrophils # Man Lymphocytes # (Manual) Haptoglobin PT INR Fibrinogen Lupus Anticoagulant LA PTT Baseline POC ABG pH POC ABG pCO2 POC ABG pO2 Sodium Potassium Chloride Carbon Dioxide BUN Creatinine Glucose POC Glucose 66 L 53 L 126 H Lactic Acid Uric Acid Calcium Phosphorus Iron TIBC Erythropoietin Ferritin Total Bilirubin Direct Bilirubin AST ALT Alkaline Phosphatase Lactate Dehydrogenase C-Reactive Protein Serum Total Protein Total Protein Albumin Bhdby-4-Fstgrsnfj Abnorm Protein Band 1 PEP Interpretation Crossmatch 10/16/16 10/16/16 10/16/16 01:03 03:55 04:00 WBC RBC Hgb Hct MCV MCHC RDW Plt Count Seg Neuts % (Manual) Lymphocytes % (Manual) Nucleated RBC % Seg Neutrophils # Man Lymphocytes # (Manual) Haptoglobin PT INR Fibrinogen Lupus Anticoagulant LA PTT Baseline POC ABG pH POC ABG pCO2 POC ABG pO2 Sodium Potassium Chloride Carbon Dioxide BUN Creatinine Glucose POC Glucose 107 H 260 H Lactic Acid 18.00 H* Uric Acid Calcium Phosphorus Iron TIBC Erythropoietin Ferritin Total Bilirubin Direct Bilirubin AST ALT Alkaline Phosphatase Lactate Dehydrogenase C-Reactive Protein Serum Total Protein Total Protein Albumin Apigo-3-Ovrphfsgf Abnorm Protein Band 1 PEP Interpretation Crossmatch 10/16/16 10/16/16 10/16/16 04:03 07:58 08:34 WBC RBC Hgb Hct MCV MCHC RDW Plt Count Seg Neuts % (Manual) Lymphocytes % (Manual) Nucleated RBC % Seg Neutrophils # Man Lymphocytes # (Manual) Haptoglobin PT INR Fibrinogen Lupus Anticoagulant LA PTT Baseline POC ABG pH 7.527 H POC ABG pCO2 32.9 L POC ABG pO2 119 H Sodium Potassium Chloride Carbon Dioxide BUN Creatinine Glucose POC Glucose 120 H 66 L Lactic Acid Uric Acid Calcium Phosphorus Iron TIBC Erythropoietin Ferritin Total Bilirubin Direct Bilirubin AST ALT Alkaline Phosphatase Lactate Dehydrogenase C-Reactive Protein Serum Total Protein Total Protein Albumin Qlmin-0-Ltptcrpie Abnorm Protein Band 1 PEP Interpretation Crossmatch 10/16/16 10/16/16 10/16/16 09:13 10:06 10:57 WBC RBC Hgb Hct MCV MCHC RDW Plt Count Seg Neuts % (Manual) Lymphocytes % (Manual) Nucleated RBC % Seg Neutrophils # Man Lymphocytes # (Manual) Haptoglobin PT INR Fibrinogen Lupus Anticoagulant LA PTT Baseline POC ABG pH POC ABG pCO2 POC ABG pO2 Sodium Potassium Chloride Carbon Dioxide BUN Creatinine Glucose POC Glucose 147 H 137 H 140 H Lactic Acid Uric Acid Calcium Phosphorus Iron TIBC Erythropoietin Ferritin Total Bilirubin Direct Bilirubin AST ALT Alkaline Phosphatase Lactate Dehydrogenase C-Reactive Protein Serum Total Protein Total Protein Albumin Cfzyc-8-Ijluhnlse Abnorm Protein Band 1 PEP Interpretation Crossmatch 10/16/16 10/16/16 10/16/16 11:15 11:15 11:15 WBC 25.8 H RBC 2.30 L Hgb 7.0 L Hct 22.3 L MCV 97 H MCHC 31 L RDW 21.2 H Plt Count 42 L Seg Neuts % (Manual) Lymphocytes % (Manual) 3.0 L Nucleated RBC % 2.0 H Seg Neutrophils # Man 11.1 H Lymphocytes # (Manual) 0.8 L Haptoglobin PT INR Fibrinogen Lupus Anticoagulant LA PTT Baseline POC ABG pH POC ABG pCO2 POC ABG pO2 Sodium Potassium Chloride 81.7 L Carbon Dioxide 13 L D BUN 61 H Creatinine 6.2 H Glucose 171 H POC Glucose Lactic Acid 22.70 H* Uric Acid Calcium 7.1 L Phosphorus 9.10 H Iron TIBC Erythropoietin Ferritin Total Bilirubin Direct Bilirubin AST ALT Alkaline Phosphatase Lactate Dehydrogenase C-Reactive Protein Serum Total Protein Total Protein Albumin Askgz-5-Bfeyklzde Abnorm Protein Band 1 PEP Interpretation Crossmatch 10/16/16 10/16/16 10/16/16 15:10 15:50 18:11 WBC RBC Hgb Hct MCV MCHC RDW Plt Count Seg Neuts % (Manual) Lymphocytes % (Manual) Nucleated RBC % Seg Neutrophils # Man Lymphocytes # (Manual) Haptoglobin PT INR Fibrinogen Lupus Anticoagulant LA PTT Baseline POC ABG pH POC ABG pCO2 POC ABG pO2 Sodium Potassium Chloride Carbon Dioxide BUN Creatinine Glucose POC Glucose 47 L 164 H 58 L Lactic Acid Uric Acid Calcium Phosphorus Iron TIBC Erythropoietin Ferritin Total Bilirubin Direct Bilirubin AST ALT Alkaline Phosphatase Lactate Dehydrogenase C-Reactive Protein Serum Total Protein Total Protein Albumin Gtnvc-9-Syrufssvz Abnorm Protein Band 1 PEP Interpretation Crossmatch 10/16/16 10/16/16 10/17/16 18:26 21:06 00:06 WBC RBC Hgb Hct MCV MCHC RDW Plt Count Seg Neuts % (Manual) Lymphocytes % (Manual) Nucleated RBC % Seg Neutrophils # Man Lymphocytes # (Manual) Haptoglobin PT INR Fibrinogen Lupus Anticoagulant LA PTT Baseline POC ABG pH POC ABG pCO2 POC ABG pO2 489 H Sodium Potassium Chloride Carbon Dioxide BUN Creatinine Glucose POC Glucose 52 L 120 H Lactic Acid Uric Acid Calcium Phosphorus Iron TIBC Erythropoietin Ferritin Total Bilirubin Direct Bilirubin AST ALT Alkaline Phosphatase Lactate Dehydrogenase C-Reactive Protein Serum Total Protein Total Protein Albumin Fbnst-8-Wobnoktwy Abnorm Protein Band 1 PEP Interpretation Crossmatch 10/17/16 10/17/16 10/17/16 04:55 04:55 05:04 WBC 25.5 H RBC 2.23 L Hgb 6.6 L Hct 21.2 L MCV 95 H MCHC 31 L RDW 20.5 H Plt Count 35 L Seg Neuts % (Manual) 79.0 H Lymphocytes % (Manual) 0 L Nucleated RBC % Seg Neutrophils # Man 20.1 H Lymphocytes # (Manual) 0.0 L Haptoglobin PT INR Fibrinogen Lupus Anticoagulant LA PTT Baseline POC ABG pH POC ABG pCO2 27.2 L POC ABG pO2 162 H Sodium Potassium Chloride 91.5 L Carbon Dioxide 16 L BUN 45 H Creatinine 4.5 H Glucose 103 H POC Glucose Lactic Acid Uric Acid Calcium 6.9 L Phosphorus 5.80 H D Iron TIBC Erythropoietin Ferritin Total Bilirubin Direct Bilirubin AST ALT Alkaline Phosphatase Lactate Dehydrogenase C-Reactive Protein Serum Total Protein Total Protein Albumin Smvxv-7-Wcvzvvmlz Abnorm Protein Band 1 PEP Interpretation Crossmatch 10/17/16 10/17/16 10/17/16 07:59 09:04 10:04 WBC RBC Hgb Hct MCV MCHC RDW Plt Count Seg Neuts % (Manual) Lymphocytes % (Manual) Nucleated RBC % Seg Neutrophils # Man Lymphocytes # (Manual) Haptoglobin PT INR Fibrinogen Lupus Anticoagulant LA PTT Baseline POC ABG pH POC ABG pCO2 POC ABG pO2 Sodium Potassium Chloride Carbon Dioxide BUN Creatinine Glucose POC Glucose 65 L 118 H Lactic Acid Uric Acid Calcium Phosphorus Iron TIBC Erythropoietin Ferritin Total Bilirubin Direct Bilirubin AST ALT Alkaline Phosphatase Lactate Dehydrogenase C-Reactive Protein Serum Total Protein Total Protein Albumin Gjpbp-3-Kerehhgnn Abnorm Protein Band 1 PEP Interpretation Crossmatch See Detail 10/17/16 10/17/16 10/17/16 11:52 13:08 15:42 WBC RBC Hgb Hct MCV MCHC RDW Plt Count Seg Neuts % (Manual) Lymphocytes % (Manual) Nucleated RBC % Seg Neutrophils # Man Lymphocytes # (Manual) Haptoglobin PT INR Fibrinogen Lupus Anticoagulant LA PTT Baseline POC ABG pH POC ABG pCO2 POC ABG pO2 Sodium Potassium Chloride Carbon Dioxide BUN Creatinine Glucose POC Glucose 125 H 106 H 55 L Lactic Acid Uric Acid Calcium Phosphorus Iron TIBC Erythropoietin Ferritin Total Bilirubin Direct Bilirubin AST ALT Alkaline Phosphatase Lactate Dehydrogenase C-Reactive Protein Serum Total Protein Total Protein Albumin Cjrgj-0-Uktegunwc Abnorm Protein Band 1 PEP Interpretation Crossmatch 10/17/16 10/17/16 10/17/16 17:39 20:37 21:02 WBC RBC Hgb Hct MCV MCHC RDW Plt Count Seg Neuts % (Manual) Lymphocytes % (Manual) Nucleated RBC % Seg Neutrophils # Man Lymphocytes # (Manual) Haptoglobin PT INR Fibrinogen Lupus Anticoagulant LA PTT Baseline POC ABG pH POC ABG pCO2 28.2 L POC ABG pO2 Sodium Potassium Chloride Carbon Dioxide BUN Creatinine Glucose POC Glucose < 40 L 106 H Lactic Acid Uric Acid Calcium Phosphorus Iron TIBC Erythropoietin Ferritin Total Bilirubin Direct Bilirubin AST ALT Alkaline Phosphatase Lactate Dehydrogenase C-Reactive Protein Serum Total Protein Total Protein Albumin Uitbi-2-Wxufzcodi Abnorm Protein Band 1 PEP Interpretation Crossmatch 10/17/16 10/17/1617 22:18 23:14 00:28 WBC RBC Hgb Hct MCV MCHC RDW Plt Count Seg Neuts % (Manual) Lymphocytes % (Manual) Nucleated RBC % Seg Neutrophils # Man Lymphocytes # (Manual) Haptoglobin PT INR Fibrinogen Lupus Anticoagulant LA PTT Baseline POC ABG pH POC ABG pCO2 POC ABG pO2 Sodium Potassium Chloride Carbon Dioxide BUN Creatinine Glucose POC Glucose 111 H 118 H 112 H Lactic Acid Uric Acid Calcium Phosphorus Iron TIBC Erythropoietin Ferritin Total Bilirubin Direct Bilirubin AST ALT Alkaline Phosphatase Lactate Dehydrogenase C-Reactive Protein Serum Total Protein Total Protein Albumin Mwtye-1-Iiochnbyv Abnorm Protein Band 1 PEP Interpretation Crossmatch 10/18/16 10/18/16 10/18/16 05:00 05:00 05:15 WBC 27.3 H RBC 2.75 L Hgb 7.9 L Hct 25.3 L MCV MCHC 31 L RDW 20.7 H Plt Count 31 L Seg Neuts % (Manual) 87.0 H Lymphocytes % (Manual) 1.0 L Nucleated RBC % 1.0 H Seg Neutrophils # Man 23.8 H Lymphocytes # (Manual) 0.3 L Haptoglobin PT INR Fibrinogen Lupus Anticoagulant LA PTT Baseline POC ABG pH 7.466 H POC ABG pCO2 25.1 L POC ABG pO2 Sodium Potassium Chloride 88.7 L Carbon Dioxide 18 L BUN 66 H Creatinine 4.7 H Glucose POC Glucose Lactic Acid Uric Acid Calcium 6.1 L Phosphorus 7.30 H D Iron TIBC Erythropoietin Ferritin Total Bilirubin Direct Bilirubin AST ALT Alkaline Phosphatase Lactate Dehydrogenase C-Reactive Protein Serum Total Protein Total Protein Albumin Dzmqj-8-Tqnpczlie Abnorm Protein Band 1 PEP Interpretation Crossmatch 10/18/16 10/18/16 10/18/16 07:15 07:44 09:07 WBC RBC Hgb Hct MCV MCHC RDW Plt Count Seg Neuts % (Manual) Lymphocytes % (Manual) Nucleated RBC % Seg Neutrophils # Man Lymphocytes # (Manual) Haptoglobin PT INR Fibrinogen Lupus Anticoagulant LA PTT Baseline POC ABG pH POC ABG pCO2 POC ABG pO2 Sodium Potassium Chloride Carbon Dioxide BUN Creatinine Glucose POC Glucose 64 L 156 H 117 H Lactic Acid Uric Acid Calcium Phosphorus Iron TIBC Erythropoietin Ferritin Total Bilirubin Direct Bilirubin AST ALT Alkaline Phosphatase Lactate Dehydrogenase C-Reactive Protein Serum Total Protein Total Protein Albumin Zxzkd-1-Bastrmrmw Abnorm Protein Band 1 PEP Interpretation Crossmatch 10/18/16 10/18/16 10/18/16 09:15 14:00 18:21 WBC RBC Hgb Hct MCV MCHC RDW Plt Count Seg Neuts % (Manual) Lymphocytes % (Manual) Nucleated RBC % Seg Neutrophils # Man Lymphocytes # (Manual) Haptoglobin PT INR Fibrinogen Lupus Anticoagulant LA PTT Baseline POC ABG pH POC ABG pCO2 POC ABG pO2 Sodium Potassium Chloride Carbon Dioxide BUN Creatinine Glucose POC Glucose 106 H 112 H Lactic Acid 14.30 H* Uric Acid Calcium Phosphorus Iron TIBC Erythropoietin Ferritin Total Bilirubin Direct Bilirubin AST ALT Alkaline Phosphatase Lactate Dehydrogenase C-Reactive Protein Serum Total Protein Total Protein Albumin Gdfgu-0-Dogodbehw Abnorm Protein Band 1 PEP Interpretation Crossmatch 10/18/16 10/18/16 10/18/16 19:58 20:55 22:11 WBC RBC Hgb Hct MCV MCHC RDW Plt Count Seg Neuts % (Manual) Lymphocytes % (Manual) Nucleated RBC % Seg Neutrophils # Man Lymphocytes # (Manual) Haptoglobin PT INR Fibrinogen Lupus Anticoagulant LA PTT Baseline POC ABG pH POC ABG pCO2 POC ABG pO2 Sodium Potassium Chloride Carbon Dioxide BUN Creatinine Glucose POC Glucose 127 H 125 H 159 H Lactic Acid Uric Acid Calcium Phosphorus Iron TIBC Erythropoietin Ferritin Total Bilirubin Direct Bilirubin AST ALT Alkaline Phosphatase Lactate Dehydrogenase C-Reactive Protein Serum Total Protein Total Protein Albumin Tzzku-0-Ycytjzdep Abnorm Protein Band 1 PEP Interpretation Crossmatch 10/18/16 10/18/16 10/19/16 23:11 23:57 01:06 WBC RBC Hgb Hct MCV MCHC RDW Plt Count Seg Neuts % (Manual) Lymphocytes % (Manual) Nucleated RBC % Seg Neutrophils # Man Lymphocytes # (Manual) Haptoglobin PT INR Fibrinogen Lupus Anticoagulant LA PTT Baseline POC ABG pH POC ABG pCO2 POC ABG pO2 Sodium Potassium Chloride Carbon Dioxide BUN Creatinine Glucose POC Glucose 122 H 137 H 162 H Lactic Acid Uric Acid Calcium Phosphorus Iron TIBC Erythropoietin Ferritin Total Bilirubin Direct Bilirubin AST ALT Alkaline Phosphatase Lactate Dehydrogenase C-Reactive Protein Serum Total Protein Total Protein Albumin Rbvta-5-Oywvxndmv Abnorm Protein Band 1 PEP Interpretation Crossmatch 10/19/16 10/19/16 10/19/16 01:59 03:07 04:10 WBC RBC Hgb Hct MCV MCHC RDW Plt Count Seg Neuts % (Manual) Lymphocytes % (Manual) Nucleated RBC % Seg Neutrophils # Man Lymphocytes # (Manual) Haptoglobin PT INR Fibrinogen Lupus Anticoagulant LA PTT Baseline POC ABG pH POC ABG pCO2 POC ABG pO2 Sodium Potassium Chloride Carbon Dioxide BUN Creatinine Glucose POC Glucose 154 H 178 H 186 H Lactic Acid Uric Acid Calcium Phosphorus Iron TIBC Erythropoietin Ferritin Total Bilirubin Direct Bilirubin AST ALT Alkaline Phosphatase Lactate Dehydrogenase C-Reactive Protein Serum Total Protein Total Protein Albumin Ydzdb-4-Azfwulfoi Abnorm Protein Band 1 PEP Interpretation Crossmatch 10/19/16 10/19/16 10/19/16 05:14 05:15 05:47 WBC RBC Hgb Hct MCV MCHC RDW Plt Count Seg Neuts % (Manual) Lymphocytes % (Manual) Nucleated RBC % Seg Neutrophils # Man Lymphocytes # (Manual) Haptoglobin PT INR Fibrinogen Lupus Anticoagulant LA PTT Baseline POC ABG pH 7.581 H POC ABG pCO2 22.9 L POC ABG pO2 58 L Sodium Potassium Chloride Carbon Dioxide BUN Creatinine Glucose POC Glucose 197 H 204 H Lactic Acid Uric Acid Calcium Phosphorus Iron TIBC Erythropoietin Ferritin Total Bilirubin Direct Bilirubin AST ALT Alkaline Phosphatase Lactate Dehydrogenase C-Reactive Protein Serum Total Protein Total Protein Albumin Ykgld-4-Imadyfygo Abnorm Protein Band 1 PEP Interpretation Crossmatch 10/19/16 10/19/16 10/19/16 06:00 06:00 07:51 WBC 23.0 H RBC 2.54 L Hgb 7.5 L Hct 23.0 L MCV MCHC RDW 20.7 H Plt Count 25 L Seg Neuts % (Manual) 91.0 H Lymphocytes % (Manual) 2.0 L Nucleated RBC % 1.0 H Seg Neutrophils # Man 20.9 H Lymphocytes # (Manual) 0.5 L Haptoglobin PT INR Fibrinogen Lupus Anticoagulant LA PTT Baseline POC ABG pH POC ABG pCO2 POC ABG pO2 Sodium Potassium Chloride 88.7 L Carbon Dioxide 21 L BUN 70 H Creatinine 3.9 H Glucose 189 H POC Glucose 145 H Lactic Acid Uric Acid Calcium 5.6 L* Phosphorus 6.30 H Iron TIBC Erythropoietin Ferritin Total Bilirubin Direct Bilirubin AST ALT Alkaline Phosphatase Lactate Dehydrogenase C-Reactive Protein Serum Total Protein Total Protein Albumin Nglfg-6-Cxidqsicj Abnorm Protein Band 1 PEP Interpretation Crossmatch 10/19/16 10/19/16 10/19/16 09:14 10:01 12:14 WBC RBC Hgb Hct MCV MCHC RDW Plt Count Seg Neuts % (Manual) Lymphocytes % (Manual) Nucleated RBC % Seg Neutrophils # Man Lymphocytes # (Manual) Haptoglobin PT INR Fibrinogen Lupus Anticoagulant LA PTT Baseline POC ABG pH POC ABG pCO2 POC ABG pO2 Sodium Potassium Chloride Carbon Dioxide BUN Creatinine Glucose POC Glucose 173 H 153 H 180 H Lactic Acid Uric Acid Calcium Phosphorus Iron TIBC Erythropoietin Ferritin Total Bilirubin Direct Bilirubin AST ALT Alkaline Phosphatase Lactate Dehydrogenase C-Reactive Protein Serum Total Protein Total Protein Albumin Hzyjo-9-Pyfkjkdei Abnorm Protein Band 1 PEP Interpretation Crossmatch 10/19/16 10/19/16 10/19/16 14:15 16:38 20:27 WBC RBC Hgb Hct MCV MCHC RDW Plt Count Seg Neuts % (Manual) Lymphocytes % (Manual) Nucleated RBC % Seg Neutrophils # Man Lymphocytes # (Manual) Haptoglobin PT INR Fibrinogen Lupus Anticoagulant LA PTT Baseline POC ABG pH POC ABG pCO2 POC ABG pO2 Sodium Potassium Chloride Carbon Dioxide BUN Creatinine Glucose POC Glucose 194 H 202 H Lactic Acid Uric Acid Calcium Phosphorus Iron TIBC Erythropoietin 148.2 H Ferritin Total Bilirubin Direct Bilirubin AST ALT Alkaline Phosphatase Lactate Dehydrogenase C-Reactive Protein Serum Total Protein Total Protein Albumin Ftspk-2-Hnzygmsjz Abnorm Protein Band 1 PEP Interpretation Crossmatch 10/19/16 10/20/16 10/20/16 23:27 04:06 05:00 WBC RBC Hgb Hct MCV MCHC RDW Plt Count Seg Neuts % (Manual) Lymphocytes % (Manual) Nucleated RBC % Seg Neutrophils # Man Lymphocytes # (Manual) Haptoglobin PT INR Fibrinogen Lupus Anticoagulant LA PTT Baseline POC ABG pH POC ABG pCO2 POC ABG pO2 Sodium Potassium Chloride 88.8 L Carbon Dioxide BUN 93 H Creatinine 4.3 H Glucose 204 H POC Glucose 201 H 200 H Lactic Acid Uric Acid Calcium 5.2 L* Phosphorus Iron TIBC Erythropoietin Ferritin Total Bilirubin Direct Bilirubin AST ALT Alkaline Phosphatase Lactate Dehydrogenase C-Reactive Protein Serum Total Protein Total Protein Albumin Ibzzw-9-Zttppnzsx Abnorm Protein Band 1 PEP Interpretation Crossmatch 10/20/16 10/20/16 10/20/16 05:16 06:00 07:43 WBC 24.8 H RBC 2.52 L Hgb 7.4 L Hct 22.9 L MCV MCHC RDW 19.9 H Plt Count 23 L Seg Neuts % (Manual) 97.0 H Lymphocytes % (Manual) 1.0 L Nucleated RBC % 9.0 H Seg Neutrophils # Man 24.1 H Lymphocytes # (Manual) 0.2 L Haptoglobin PT INR Fibrinogen Lupus Anticoagulant LA PTT Baseline POC ABG pH 7.463 H POC ABG pCO2 POC ABG pO2 157 H Sodium Potassium Chloride Carbon Dioxide BUN Creatinine Glucose POC Glucose 192 H Lactic Acid Uric Acid Calcium Phosphorus Iron TIBC Erythropoietin Ferritin Total Bilirubin Direct Bilirubin AST ALT Alkaline Phosphatase Lactate Dehydrogenase C-Reactive Protein Serum Total Protein Total Protein Albumin Gjysu-3-Qcptmniit Abnorm Protein Band 1 PEP Interpretation Crossmatch 10/20/16 10/20/16 10/20/16 12:11 15:32 21:23 WBC RBC Hgb Hct MCV MCHC RDW Plt Count Seg Neuts % (Manual) Lymphocytes % (Manual) Nucleated RBC % Seg Neutrophils # Man Lymphocytes # (Manual) Haptoglobin PT INR Fibrinogen Lupus Anticoagulant LA PTT Baseline POC ABG pH POC ABG pCO2 POC ABG pO2 Sodium Potassium Chloride Carbon Dioxide BUN Creatinine Glucose POC Glucose 172 H 216 H 271 H Lactic Acid Uric Acid Calcium Phosphorus Iron TIBC Erythropoietin Ferritin Total Bilirubin Direct Bilirubin AST ALT Alkaline Phosphatase Lactate Dehydrogenase C-Reactive Protein Serum Total Protein Total Protein Albumin Auhgi-1-Lhqyhfhrg Abnorm Protein Band 1 PEP Interpretation Crossmatch 10/20/16 10/21/16 10/21/16 23:49 03:53 04:58 WBC RBC Hgb Hct MCV MCHC RDW Plt Count Seg Neuts % (Manual) Lymphocytes % (Manual) Nucleated RBC % Seg Neutrophils # Man Lymphocytes # (Manual) Haptoglobin PT INR Fibrinogen Lupus Anticoagulant LA PTT Baseline POC ABG pH 7.459 H POC ABG pCO2 POC ABG pO2 113 H Sodium 136 L Potassium 2.8 L* D Chloride 91.6 L Carbon Dioxide BUN 62 H Creatinine 2.8 H Glucose 236 H POC Glucose 317 H Lactic Acid Uric Acid Calcium 6.2 L D Phosphorus Iron TIBC Erythropoietin Ferritin Total Bilirubin 2.70 H Direct Bilirubin AST 73 H ALT 57 H Alkaline Phosphatase 158 H Lactate Dehydrogenase C-Reactive Protein Serum Total Protein Total Protein 4.9 L Albumin 2.6 L Mhasp-8-Brbxifsxc Abnorm Protein Band 1 PEP Interpretation Crossmatch 10/21/16 10/21/16 10/21/16 05:25 07:11 10:30 WBC 28.1 H RBC 2.36 L Hgb 7.0 L Hct 21.6 L MCV MCHC RDW 20.0 H Plt Count 14 L* Seg Neuts % (Manual) 92.0 H Lymphocytes % (Manual) 0 L Nucleated RBC % 5.0 H Seg Neutrophils # Man 25.9 H Lymphocytes # (Manual) 0.0 L Haptoglobin PT INR Fibrinogen Lupus Anticoagulant LA PTT Baseline POC ABG pH POC ABG pCO2 POC ABG pO2 Sodium Potassium Chloride Carbon Dioxide BUN Creatinine Glucose POC Glucose 237 H 206 H Lactic Acid Uric Acid Calcium Phosphorus Iron TIBC Erythropoietin Ferritin Total Bilirubin Direct Bilirubin AST ALT Alkaline Phosphatase Lactate Dehydrogenase C-Reactive Protein Serum Total Protein Total Protein Albumin Olujz-6-Oezieizgb Abnorm Protein Band 1 PEP Interpretation Crossmatch 10/21/16 10/21/16 10/21/16 11:25 12:31 16:33 WBC RBC Hgb Hct MCV MCHC RDW Plt Count Seg Neuts % (Manual) Lymphocytes % (Manual) Nucleated RBC % Seg Neutrophils # Man Lymphocytes # (Manual) Haptoglobin PT 49.1 H INR 5.28 H* Fibrinogen Lupus Anticoagulant LA PTT Baseline POC ABG pH POC ABG pCO2 POC ABG pO2 Sodium Potassium Chloride Carbon Dioxide BUN Creatinine Glucose POC Glucose 145 H 151 H Lactic Acid Uric Acid Calcium Phosphorus Iron TIBC Erythropoietin Ferritin Total Bilirubin Direct Bilirubin AST ALT Alkaline Phosphatase Lactate Dehydrogenase C-Reactive Protein Serum Total Protein Total Protein Albumin Ljuzb-9-Yjyhvfedl Abnorm Protein Band 1 PEP Interpretation Crossmatch 10/21/16 10/22/16 10/22/16 19:53 00:00 05:23 WBC RBC Hgb Hct MCV MCHC RDW Plt Count Seg Neuts % (Manual) Lymphocytes % (Manual) Nucleated RBC % Seg Neutrophils # Man Lymphocytes # (Manual) Haptoglobin PT INR Fibrinogen Lupus Anticoagulant LA PTT Baseline POC ABG pH POC ABG pCO2 POC ABG pO2 Sodium Potassium Chloride Carbon Dioxide BUN Creatinine Glucose POC Glucose 170 H 168 H 131 H Lactic Acid Uric Acid Calcium Phosphorus Iron TIBC Erythropoietin Ferritin Total Bilirubin Direct Bilirubin AST ALT Alkaline Phosphatase Lactate Dehydrogenase C-Reactive Protein Serum Total Protein Total Protein Albumin Tdedd-1-Vpvnomamf Abnorm Protein Band 1 PEP Interpretation Crossmatch 10/22/16 10/22/16 10/22/16 05:25 05:35 13:03 WBC RBC Hgb Hct MCV MCHC RDW Plt Count Seg Neuts % (Manual) Lymphocytes % (Manual) Nucleated RBC % Seg Neutrophils # Man Lymphocytes # (Manual) Haptoglobin PT INR Fibrinogen Lupus Anticoagulant LA PTT Baseline POC ABG pH 7.462 H POC ABG pCO2 POC ABG pO2 Sodium 135 L Potassium 3.0 L Chloride 88.5 L Carbon Dioxide BUN 84 H Creatinine 3.4 H Glucose 124 H POC Glucose 164 H Lactic Acid Uric Acid Calcium 5.9 L* Phosphorus Iron TIBC Erythropoietin Ferritin Total Bilirubin 2.00 H Direct Bilirubin AST 85 H ALT Alkaline Phosphatase 199 H Lactate Dehydrogenase C-Reactive Protein Serum Total Protein Total Protein 5.0 L Albumin 2.5 L Cfgip-1-Wxcmubhnb Abnorm Protein Band 1 PEP Interpretation Crossmatch 10/22/16 10/22/16 10/23/16 17:14 23:16 04:47 WBC RBC Hgb Hct MCV MCHC RDW Plt Count Seg Neuts % (Manual) Lymphocytes % (Manual) Nucleated RBC % Seg Neutrophils # Man Lymphocytes # (Manual) Haptoglobin PT INR Fibrinogen Lupus Anticoagulant LA PTT Baseline POC ABG pH 7.476 H POC ABG pCO2 POC ABG pO2 108 H Sodium Potassium Chloride Carbon Dioxide BUN Creatinine Glucose POC Glucose 188 H 167 H Lactic Acid Uric Acid Calcium Phosphorus Iron TIBC Erythropoietin Ferritin Total Bilirubin Direct Bilirubin AST ALT Alkaline Phosphatase Lactate Dehydrogenase C-Reactive Protein Serum Total Protein Total Protein Albumin Zllqe-6-Zsxvhyggu Abnorm Protein Band 1 PEP Interpretation Crossmatch 10/23/16 10/23/16 10/23/16 05:49 07:00 07:12 WBC 24.2 H RBC 2.27 L Hgb 7.0 L Hct 21.1 L MCV MCHC RDW 19.7 H Plt Count 35 L D Seg Neuts % (Manual) Lymphocytes % (Manual) Nucleated RBC % Seg Neutrophils # Man Lymphocytes # (Manual) Haptoglobin PT INR Fibrinogen Lupus Anticoagulant LA PTT Baseline POC ABG pH POC ABG pCO2 POC ABG pO2 Sodium Potassium 3.5 L Chloride 95.7 L Carbon Dioxide BUN 55 H Creatinine 2.7 H Glucose 103 H POC Glucose 106 H Lactic Acid Uric Acid Calcium 7.1 L D Phosphorus Iron TIBC Erythropoietin Ferritin Total Bilirubin Direct Bilirubin AST ALT Alkaline Phosphatase Lactate Dehydrogenase C-Reactive Protein Serum Total Protein Total Protein Albumin Mwdhe-7-Mppvwaztc Abnorm Protein Band 1 PEP Interpretation Crossmatch 10/24/16 10/24/16 10/24/16 00:12 05:16 07:00 WBC 17.9 H RBC 2.12 L Hgb 6.5 L Hct 19.9 L* MCV MCHC RDW 19.3 H Plt Count 44 L Seg Neuts % (Manual) Lymphocytes % (Manual) Nucleated RBC % Seg Neutrophils # Man Lymphocytes # (Manual) Haptoglobin PT INR Fibrinogen Lupus Anticoagulant LA PTT Baseline POC ABG pH POC ABG pCO2 POC ABG pO2 Sodium Potassium Chloride Carbon Dioxide BUN Creatinine Glucose POC Glucose 116 H 135 H Lactic Acid Uric Acid Calcium Phosphorus Iron TIBC Erythropoietin Ferritin Total Bilirubin Direct Bilirubin AST ALT Alkaline Phosphatase Lactate Dehydrogenase C-Reactive Protein Serum Total Protein Total Protein Albumin Dfxaa-8-Xpeljddur Abnorm Protein Band 1 PEP Interpretation Crossmatch 10/24/16 10/24/16 10/24/16 07:00 11:45 12:12 WBC RBC Hgb Hct MCV MCHC RDW Plt Count Seg Neuts % (Manual) Lymphocytes % (Manual) Nucleated RBC % Seg Neutrophils # Man Lymphocytes # (Manual) Haptoglobin PT INR Fibrinogen Lupus Anticoagulant LA PTT Baseline POC ABG pH POC ABG pCO2 POC ABG pO2 Sodium Potassium Chloride 92.9 L Carbon Dioxide BUN 74 H Creatinine 3.3 H Glucose 136 H POC Glucose 177 H Lactic Acid Uric Acid Calcium 6.6 L Phosphorus Iron TIBC Erythropoietin Ferritin Total Bilirubin 2.10 H Direct Bilirubin AST 68 H ALT Alkaline Phosphatase 224 H Lactate Dehydrogenase C-Reactive Protein Serum Total Protein Total Protein 4.8 L Albumin 2.3 L Kltph-3-Xcytsobop Abnorm Protein Band 1 PEP Interpretation Crossmatch See Detail 10/24/16 10/24/16 10/24/16 16:30 16:30 17:28 WBC RBC Hgb Hct MCV MCHC RDW Plt Count Seg Neuts % (Manual) Lymphocytes % (Manual) Nucleated RBC % Seg Neutrophils # Man Lymphocytes # (Manual) Haptoglobin PT INR Fibrinogen Lupus Anticoagulant LA PTT Baseline POC ABG pH POC ABG pCO2 POC ABG pO2 Sodium Potassium Chloride Carbon Dioxide BUN Creatinine Glucose POC Glucose 128 H Lactic Acid 3.00 H* Uric Acid Calcium Phosphorus Iron TIBC Erythropoietin Ferritin Total Bilirubin Direct Bilirubin AST ALT Alkaline Phosphatase Lactate Dehydrogenase C-Reactive Protein 7.40 H Serum Total Protein Total Protein Albumin Didph-0-Ietpmeoms Abnorm Protein Band 1 PEP Interpretation Crossmatch 10/24/16 10/24/16 10/25/16 18:40 23:32 05:00 WBC 17.5 H RBC 2.99 L Hgb 9.1 L Hct 26.9 L D MCV MCHC RDW 17.7 H Plt Count 53 L Seg Neuts % (Manual) Lymphocytes % (Manual) Nucleated RBC % Seg Neutrophils # Man Lymphocytes # (Manual) Haptoglobin PT INR Fibrinogen Lupus Anticoagulant LA PTT Baseline POC ABG pH POC ABG pCO2 POC ABG pO2 Sodium Potassium Chloride Carbon Dioxide BUN Creatinine Glucose POC Glucose 140 H Lactic Acid 3.10 H* Uric Acid Calcium Phosphorus Iron TIBC Erythropoietin Ferritin Total Bilirubin Direct Bilirubin AST ALT Alkaline Phosphatase Lactate Dehydrogenase C-Reactive Protein Serum Total Protein Total Protein Albumin Aaqsm-1-Wntxcvhkr Abnorm Protein Band 1 PEP Interpretation Crossmatch 10/25/16 10/25/16 10/25/16 05:00 05:22 11:58 WBC RBC Hgb Hct MCV MCHC RDW Plt Count Seg Neuts % (Manual) Lymphocytes % (Manual) Nucleated RBC % Seg Neutrophils # Man Lymphocytes # (Manual) Haptoglobin PT INR Fibrinogen Lupus Anticoagulant LA PTT Baseline POC ABG pH POC ABG pCO2 POC ABG pO2 Sodium Potassium Chloride 91.6 L Carbon Dioxide BUN 89 H Creatinine 3.9 H Glucose 150 H POC Glucose 164 H 189 H Lactic Acid Uric Acid Calcium 6.9 L Phosphorus Iron TIBC Erythropoietin Ferritin Total Bilirubin Direct Bilirubin AST ALT Alkaline Phosphatase Lactate Dehydrogenase C-Reactive Protein Serum Total Protein Total Protein Albumin Cqtwr-7-Sqakhntbb Abnorm Protein Band 1 PEP Interpretation Crossmatch 10/25/16 10/25/16 10/26/16 17:56 23:12 04:00 WBC RBC Hgb Hct MCV MCHC RDW Plt Count Seg Neuts % (Manual) Lymphocytes % (Manual) Nucleated RBC % Seg Neutrophils # Man Lymphocytes # (Manual) Haptoglobin PT INR Fibrinogen Lupus Anticoagulant LA PTT Baseline POC ABG pH POC ABG pCO2 POC ABG pO2 Sodium 135 L Potassium Chloride 90.7 L Carbon Dioxide BUN 64 H Creatinine 2.9 H Glucose 132 H POC Glucose 156 H 133 H Lactic Acid Uric Acid Calcium 7.3 L Phosphorus Iron TIBC Erythropoietin Ferritin Total Bilirubin Direct Bilirubin AST ALT Alkaline Phosphatase Lactate Dehydrogenase C-Reactive Protein Serum Total Protein Total Protein Albumin Gzgjv-0-Hrbhgfmsy Abnorm Protein Band 1 PEP Interpretation Crossmatch 10/26/16 10/26/16 10/26/16 05:14 06:15 11:51 WBC 18.6 H RBC 3.15 L Hgb 9.6 L Hct 29.0 L MCV MCHC RDW 17.8 H Plt Count 71 L Seg Neuts % (Manual) 85.0 H Lymphocytes % (Manual) 1.0 L Nucleated RBC % Seg Neutrophils # Man 15.8 H Lymphocytes # (Manual) 0.2 L Haptoglobin PT INR Fibrinogen Lupus Anticoagulant LA PTT Baseline POC ABG pH POC ABG pCO2 POC ABG pO2 Sodium Potassium Chloride Carbon Dioxide BUN Creatinine Glucose POC Glucose 130 H 139 H Lactic Acid Uric Acid Calcium Phosphorus Iron TIBC Erythropoietin Ferritin Total Bilirubin Direct Bilirubin AST ALT Alkaline Phosphatase Lactate Dehydrogenase C-Reactive Protein Serum Total Protein Total Protein Albumin Sefak-0-Jcnmwlmtw Abnorm Protein Band 1 PEP Interpretation Crossmatch 10/26/16 10/26/16 10/27/16 17:25 23:35 04:10 WBC 16.8 H RBC 3.38 L Hgb 10.1 L Hct 31.0 L MCV MCHC RDW 18.0 H Plt Count 77 L Seg Neuts % (Manual) 92.0 H Lymphocytes % (Manual) 1.0 L Nucleated RBC % 1.0 H Seg Neutrophils # Man 15.5 H Lymphocytes # (Manual) 0.2 L Haptoglobin PT INR Fibrinogen Lupus Anticoagulant LA PTT Baseline POC ABG pH POC ABG pCO2 POC ABG pO2 Sodium Potassium Chloride Carbon Dioxide BUN Creatinine Glucose POC Glucose 118 H 145 H Lactic Acid Uric Acid Calcium Phosphorus Iron TIBC Erythropoietin Ferritin Total Bilirubin Direct Bilirubin AST ALT Alkaline Phosphatase Lactate Dehydrogenase C-Reactive Protein Serum Total Protein Total Protein Albumin Vfwny-3-Opilzzmxs Abnorm Protein Band 1 PEP Interpretation Crossmatch 10/27/16 10/27/16 10/27/16 04:10 05:53 08:14 WBC RBC Hgb Hct MCV MCHC RDW Plt Count Seg Neuts % (Manual) Lymphocytes % (Manual) Nucleated RBC % Seg Neutrophils # Man Lymphocytes # (Manual) Haptoglobin PT 23.0 H INR 2.03 H Fibrinogen Lupus Anticoagulant LA PTT Baseline POC ABG pH POC ABG pCO2 POC ABG pO2 Sodium Potassium Chloride 95.5 L Carbon Dioxide BUN 63 H Creatinine 2.8 H Glucose 112 H POC Glucose 127 H Lactic Acid Uric Acid Calcium 7.5 L Phosphorus Iron TIBC Erythropoietin Ferritin Total Bilirubin Direct Bilirubin AST ALT Alkaline Phosphatase Lactate Dehydrogenase C-Reactive Protein Serum Total Protein Total Protein Albumin Ehhli-5-Dhzszsvuz Abnorm Protein Band 1 PEP Interpretation Crossmatch 10/27/16 10/27/16 10/27/16 11:56 17:47 23:55 WBC RBC Hgb Hct MCV MCHC RDW Plt Count Seg Neuts % (Manual) Lymphocytes % (Manual) Nucleated RBC % Seg Neutrophils # Man Lymphocytes # (Manual) Haptoglobin PT INR Fibrinogen Lupus Anticoagulant LA PTT Baseline POC ABG pH POC ABG pCO2 POC ABG pO2 Sodium Potassium Chloride Carbon Dioxide BUN Creatinine Glucose POC Glucose 113 H 117 H 142 H Lactic Acid Uric Acid Calcium Phosphorus Iron TIBC Erythropoietin Ferritin Total Bilirubin Direct Bilirubin AST ALT Alkaline Phosphatase Lactate Dehydrogenase C-Reactive Protein Serum Total Protein Total Protein Albumin Wennq-7-Mbebmzidz Abnorm Protein Band 1 PEP Interpretation Crossmatch 10/28/16 10/28/16 10/28/16 05:45 05:45 11:44 WBC 16.6 H RBC 3.18 L Hgb 9.5 L Hct 29.3 L MCV MCHC RDW 17.6 H Plt Count 83 L Seg Neuts % (Manual) 87.0 H Lymphocytes % (Manual) 3.0 L Nucleated RBC % Seg Neutrophils # Man 14.4 H Lymphocytes # (Manual) 0.5 L Haptoglobin PT INR Fibrinogen Lupus Anticoagulant LA PTT Baseline POC ABG pH POC ABG pCO2 POC ABG pO2 Sodium Potassium Chloride 94.6 L Carbon Dioxide 21 L BUN 90 H Creatinine 3.9 H Glucose 152 H POC Glucose 151 H Lactic Acid Uric Acid Calcium 6.9 L Phosphorus Iron TIBC Erythropoietin Ferritin Total Bilirubin Direct Bilirubin AST ALT Alkaline Phosphatase Lactate Dehydrogenase C-Reactive Protein Serum Total Protein Total Protein Albumin Uvpzc-0-Rfqifohzf Abnorm Protein Band 1 PEP Interpretation Crossmatch 10/28/16 10/28/16 10/29/16 17:31 23:47 04:53 WBC RBC Hgb Hct MCV MCHC RDW Plt Count Seg Neuts % (Manual) Lymphocytes % (Manual) Nucleated RBC % Seg Neutrophils # Man Lymphocytes # (Manual) Haptoglobin PT INR Fibrinogen Lupus Anticoagulant LA PTT Baseline POC ABG pH POC ABG pCO2 POC ABG pO2 Sodium Potassium Chloride Carbon Dioxide BUN Creatinine Glucose POC Glucose 184 H 124 H 153 H Lactic Acid Uric Acid Calcium Phosphorus Iron TIBC Erythropoietin Ferritin Total Bilirubin Direct Bilirubin AST ALT Alkaline Phosphatase Lactate Dehydrogenase C-Reactive Protein Serum Total Protein Total Protein Albumin Hguxu-8-Dpddamgkc Abnorm Protein Band 1 PEP Interpretation Crossmatch 10/29/16 10/29/16 10/29/16 06:15 06:15 10:58 WBC 14.1 H RBC 3.15 L Hgb 9.6 L Hct 29.1 L MCV MCHC RDW 17.9 H Plt Count 73 L Seg Neuts % (Manual) 93.0 H Lymphocytes % (Manual) 4.0 L Nucleated RBC % Seg Neutrophils # Man 13.1 H Lymphocytes # (Manual) 0.6 L Haptoglobin PT INR Fibrinogen Lupus Anticoagulant LA PTT Baseline POC ABG pH POC ABG pCO2 POC ABG pO2 Sodium Potassium Chloride Carbon Dioxide BUN 58 H Creatinine 2.7 H Glucose 146 H POC Glucose 134 H Lactic Acid Uric Acid Calcium 7.4 L Phosphorus 5.00 H Iron TIBC Erythropoietin Ferritin Total Bilirubin Direct Bilirubin AST ALT Alkaline Phosphatase Lactate Dehydrogenase C-Reactive Protein Serum Total Protein Total Protein Albumin Tqudp-2-Bmajuivwi Abnorm Protein Band 1 PEP Interpretation Crossmatch 10/29/16 10/29/16 10/30/16 17:06 23:28 05:16 WBC RBC Hgb Hct MCV MCHC RDW Plt Count Seg Neuts % (Manual) Lymphocytes % (Manual) Nucleated RBC % Seg Neutrophils # Man Lymphocytes # (Manual) Haptoglobin PT INR Fibrinogen Lupus Anticoagulant LA PTT Baseline POC ABG pH POC ABG pCO2 POC ABG pO2 Sodium Potassium Chloride Carbon Dioxide BUN Creatinine Glucose POC Glucose 158 H 133 H 147 H Lactic Acid Uric Acid Calcium Phosphorus Iron TIBC Erythropoietin Ferritin Total Bilirubin Direct Bilirubin AST ALT Alkaline Phosphatase Lactate Dehydrogenase C-Reactive Protein Serum Total Protein Total Protein Albumin Lgmnf-7-Ewufveohb Abnorm Protein Band 1 PEP Interpretation Crossmatch 10/30/16 10/30/16 10/30/16 06:35 06:35 12:08 WBC 13.0 H RBC 3.08 L Hgb 9.3 L Hct 28.7 L MCV MCHC RDW 18.4 H Plt Count 73 L Seg Neuts % (Manual) Lymphocytes % (Manual) Nucleated RBC % Seg Neutrophils # Man Lymphocytes # (Manual) Haptoglobin PT INR Fibrinogen Lupus Anticoagulant LA PTT Baseline POC ABG pH POC ABG pCO2 POC ABG pO2 Sodium Potassium Chloride Carbon Dioxide BUN 86 H Creatinine 3.5 H Glucose 132 H POC Glucose 134 H Lactic Acid Uric Acid Calcium 7.1 L Phosphorus 5.90 H Iron TIBC Erythropoietin Ferritin Total Bilirubin Direct Bilirubin AST ALT Alkaline Phosphatase Lactate Dehydrogenase C-Reactive Protein Serum Total Protein Total Protein Albumin Bllqm-0-Egwspesvk Abnorm Protein Band 1 PEP Interpretation Crossmatch 10/30/16 10/30/16 10/31/16 18:02 23:31 05:21 WBC RBC Hgb Hct MCV MCHC RDW Plt Count Seg Neuts % (Manual) Lymphocytes % (Manual) Nucleated RBC % Seg Neutrophils # Man Lymphocytes # (Manual) Haptoglobin PT INR Fibrinogen Lupus Anticoagulant LA PTT Baseline POC ABG pH POC ABG pCO2 POC ABG pO2 Sodium Potassium Chloride Carbon Dioxide BUN Creatinine Glucose POC Glucose 142 H 152 H 152 H Lactic Acid Uric Acid Calcium Phosphorus Iron TIBC Erythropoietin Ferritin Total Bilirubin Direct Bilirubin AST ALT Alkaline Phosphatase Lactate Dehydrogenase C-Reactive Protein Serum Total Protein Total Protein Albumin Ogvmk-0-Dkwxhagop Abnorm Protein Band 1 PEP Interpretation Crossmatch 10/31/16 10/31/16 10/31/16 06:21 06:21 12:12 WBC 11.9 H RBC 2.82 L Hgb 8.6 L Hct 26.4 L MCV MCHC RDW 17.8 H Plt Count 56 L Seg Neuts % (Manual) Lymphocytes % (Manual) 0 L Nucleated RBC % Seg Neutrophils # Man 10.9 H Lymphocytes # (Manual) 0.0 L Haptoglobin PT INR Fibrinogen Lupus Anticoagulant LA PTT Baseline POC ABG pH POC ABG pCO2 POC ABG pO2 Sodium Potassium Chloride Carbon Dioxide 21 L BUN 107 H Creatinine 4.2 H Glucose 137 H POC Glucose 142 H Lactic Acid Uric Acid Calcium 7.2 L Phosphorus 6.50 H Iron TIBC Erythropoietin Ferritin Total Bilirubin Direct Bilirubin AST ALT Alkaline Phosphatase Lactate Dehydrogenase C-Reactive Protein Serum Total Protein Total Protein Albumin Vqfpd-2-Lxnjbarcm Abnorm Protein Band 1 PEP Interpretation Crossmatch 10/31/16 10/31/16 11/01/16 17:34 23:46 05:15 WBC RBC Hgb Hct MCV MCHC RDW Plt Count Seg Neuts % (Manual) Lymphocytes % (Manual) Nucleated RBC % Seg Neutrophils # Man Lymphocytes # (Manual) Haptoglobin PT INR Fibrinogen Lupus Anticoagulant LA PTT Baseline POC ABG pH POC ABG pCO2 POC ABG pO2 Sodium Potassium Chloride Carbon Dioxide BUN Creatinine Glucose POC Glucose 180 H 131 H 148 H Lactic Acid Uric Acid Calcium Phosphorus Iron TIBC Erythropoietin Ferritin Total Bilirubin Direct Bilirubin AST ALT Alkaline Phosphatase Lactate Dehydrogenase C-Reactive Protein Serum Total Protein Total Protein Albumin Knegn-1-Yqfldsoro Abnorm Protein Band 1 PEP Interpretation Crossmatch 11/01/16 11/01/16 11/01/16 06:00 06:00 11:45 WBC RBC 2.66 L Hgb 8.1 L Hct 24.8 L MCV MCHC RDW 17.7 H Plt Count 47 L Seg Neuts % (Manual) 88.0 H Lymphocytes % (Manual) 0 L Nucleated RBC % Seg Neutrophils # Man Lymphocytes # (Manual) 0.0 L Haptoglobin PT INR Fibrinogen Lupus Anticoagulant LA PTT Baseline POC ABG pH POC ABG pCO2 POC ABG pO2 Sodium 134 L Potassium Chloride 95.6 L Carbon Dioxide BUN 90 H Creatinine 3.5 H Glucose 154 H POC Glucose 169 H Lactic Acid Uric Acid Calcium 7.1 L Phosphorus 5.50 H Iron TIBC Erythropoietin Ferritin Total Bilirubin Direct Bilirubin AST ALT Alkaline Phosphatase Lactate Dehydrogenase C-Reactive Protein Serum Total Protein Total Protein Albumin Oadgl-9-Vrbwwpfmq Abnorm Protein Band 1 PEP Interpretation Crossmatch 11/01/16 11/01/16 11/01/16 18:33 20:55 23:51 WBC RBC Hgb Hct MCV MCHC RDW Plt Count Seg Neuts % (Manual) Lymphocytes % (Manual) Nucleated RBC % Seg Neutrophils # Man Lymphocytes # (Manual) Haptoglobin PT INR Fibrinogen Lupus Anticoagulant LA PTT Baseline POC ABG pH POC ABG pCO2 POC ABG pO2 Sodium Potassium Chloride Carbon Dioxide BUN Creatinine Glucose POC Glucose 128 H 144 H Lactic Acid 3.10 H* Uric Acid Calcium Phosphorus Iron TIBC Erythropoietin Ferritin Total Bilirubin Direct Bilirubin AST ALT Alkaline Phosphatase Lactate Dehydrogenase C-Reactive Protein Serum Total Protein Total Protein Albumin Xboqu-9-Hfdthbsgq Abnorm Protein Band 1 PEP Interpretation Crossmatch 11/02/16 11/02/16 11/02/16 05:15 05:15 05:24 WBC RBC 2.69 L Hgb 8.2 L Hct 25.1 L MCV MCHC RDW 16.9 H Plt Count 42 L Seg Neuts % (Manual) 94.0 H Lymphocytes % (Manual) 0 L Nucleated RBC % Seg Neutrophils # Man Lymphocytes # (Manual) 0.0 L Haptoglobin PT INR Fibrinogen Lupus Anticoagulant LA PTT Baseline POC ABG pH POC ABG pCO2 POC ABG pO2 Sodium 135 L Potassium Chloride 97.7 L Carbon Dioxide BUN 67 H Creatinine 2.8 H Glucose 107 H POC Glucose 119 H Lactic Acid Uric Acid Calcium 7.3 L Phosphorus 4.90 H Iron TIBC Erythropoietin Ferritin Total Bilirubin Direct Bilirubin AST ALT Alkaline Phosphatase Lactate Dehydrogenase C-Reactive Protein Serum Total Protein Total Protein Albumin Dkmwn-0-Olesveyvl Abnorm Protein Band 1 PEP Interpretation Crossmatch 11/02/16 11/02/16 11/02/16 06:07 09:26 10:00 WBC RBC 2.83 L Hgb 8.7 L Hct 26.5 L MCV MCHC RDW 17.4 H Plt Count 46 L Seg Neuts % (Manual) Lymphocytes % (Manual) Nucleated RBC % Seg Neutrophils # Man Lymphocytes # (Manual) Haptoglobin PT 19.9 H INR 1.69 H Fibrinogen Lupus Anticoagulant LA PTT Baseline POC ABG pH POC ABG pCO2 POC ABG pO2 Sodium Potassium Chloride Carbon Dioxide BUN Creatinine Glucose POC Glucose 111 H Lactic Acid Uric Acid Calcium Phosphorus Iron TIBC Erythropoietin Ferritin Total Bilirubin Direct Bilirubin AST ALT Alkaline Phosphatase Lactate Dehydrogenase C-Reactive Protein Serum Total Protein Total Protein Albumin Mabmy-3-Bmrmpxnau Abnorm Protein Band 1 PEP Interpretation Crossmatch 11/03/16 11/03/16 11/03/16 00:02 03:25 03:25 WBC RBC 2.34 L Hgb 7.0 L Hct 21.9 L MCV MCHC RDW 17.6 H Plt Count 49 L Seg Neuts % (Manual) 86.0 H Lymphocytes % (Manual) 4.0 L Nucleated RBC % Seg Neutrophils # Man Lymphocytes # (Manual) 0.3 L Haptoglobin PT INR Fibrinogen Lupus Anticoagulant LA PTT Baseline POC ABG pH POC ABG pCO2 POC ABG pO2 Sodium 136 L Potassium Chloride 94.6 L Carbon Dioxide 21 L BUN 84 H Creatinine 3.2 H Glucose 116 H POC Glucose 114 H Lactic Acid Uric Acid Calcium 7.0 L Phosphorus 5.80 H Iron TIBC Erythropoietin Ferritin Total Bilirubin Direct Bilirubin AST ALT Alkaline Phosphatase Lactate Dehydrogenase C-Reactive Protein Serum Total Protein Total Protein Albumin Bwucl-1-Byeevadyw Abnorm Protein Band 1 PEP Interpretation Crossmatch 11/03/16 11/03/16 11/03/16 03:25 11:05 13:02 WBC RBC Hgb Hct MCV MCHC RDW Plt Count Seg Neuts % (Manual) Lymphocytes % (Manual) Nucleated RBC % Seg Neutrophils # Man Lymphocytes # (Manual) Haptoglobin PT 22.5 H INR 1.98 H Fibrinogen Lupus Anticoagulant LA PTT Baseline POC ABG pH POC ABG pCO2 POC ABG pO2 Sodium Potassium Chloride Carbon Dioxide BUN Creatinine Glucose POC Glucose 165 H Lactic Acid Uric Acid Calcium Phosphorus Iron TIBC Erythropoietin Ferritin Total Bilirubin Direct Bilirubin AST ALT Alkaline Phosphatase Lactate Dehydrogenase C-Reactive Protein Serum Total Protein Total Protein Albumin Qzjxx-0-Xxydtdloe Abnorm Protein Band 1 PEP Interpretation Crossmatch See Detail 11/03/16 11/04/16 11/04/16 18:13 00:27 05:40 WBC RBC Hgb Hct MCV MCHC RDW Plt Count Seg Neuts % (Manual) Lymphocytes % (Manual) Nucleated RBC % Seg Neutrophils # Man Lymphocytes # (Manual) Haptoglobin PT 20.3 H INR 1.74 H Fibrinogen Lupus Anticoagulant LA PTT Baseline POC ABG pH POC ABG pCO2 POC ABG pO2 Sodium Potassium Chloride Carbon Dioxide BUN Creatinine Glucose POC Glucose 163 H 108 H Lactic Acid Uric Acid Calcium Phosphorus Iron TIBC Erythropoietin Ferritin Total Bilirubin Direct Bilirubin AST ALT Alkaline Phosphatase Lactate Dehydrogenase C-Reactive Protein Serum Total Protein Total Protein Albumin Jvscj-2-Rablwuiie Abnorm Protein Band 1 PEP Interpretation Crossmatch 11/04/16 11/04/16 11/04/16 11:41 14:48 17:58 WBC RBC Hgb Hct MCV MCHC RDW Plt Count Seg Neuts % (Manual) Lymphocytes % (Manual) Nucleated RBC % Seg Neutrophils # Man Lymphocytes # (Manual) Haptoglobin PT INR Fibrinogen Lupus Anticoagulant LA PTT Baseline POC ABG pH POC ABG pCO2 POC ABG pO2 107 H Sodium Potassium Chloride Carbon Dioxide BUN Creatinine Glucose POC Glucose 175 H 106 H Lactic Acid Uric Acid Calcium Phosphorus Iron TIBC Erythropoietin Ferritin Total Bilirubin Direct Bilirubin AST ALT Alkaline Phosphatase Lactate Dehydrogenase C-Reactive Protein Serum Total Protein Total Protein Albumin Jklqf-0-Rqtmsznjt Abnorm Protein Band 1 PEP Interpretation Crossmatch 11/05/16 11/05/16 11/05/16 00:21 04:55 05:40 WBC RBC 2.60 L Hgb 8.1 L Hct 24.6 L MCV 95 H MCHC RDW 16.4 H Plt Count 34 L Seg Neuts % (Manual) Lymphocytes % (Manual) 1.0 L Nucleated RBC % Seg Neutrophils # Man Lymphocytes # (Manual) 0.1 L Haptoglobin PT INR Fibrinogen Lupus Anticoagulant LA PTT Baseline POC ABG pH POC ABG pCO2 POC ABG pO2 Sodium Potassium Chloride Carbon Dioxide BUN Creatinine Glucose POC Glucose 117 H 143 H Lactic Acid Uric Acid Calcium Phosphorus Iron TIBC Erythropoietin Ferritin Total Bilirubin Direct Bilirubin AST ALT Alkaline Phosphatase Lactate Dehydrogenase C-Reactive Protein Serum Total Protein Total Protein Albumin Jnbkm-7-Quvvxdtyi Abnorm Protein Band 1 PEP Interpretation Crossmatch 11/05/16 11/05/16 11/05/16 06:00 11:20 18:03 WBC RBC Hgb Hct MCV MCHC RDW Plt Count Seg Neuts % (Manual) Lymphocytes % (Manual) Nucleated RBC % Seg Neutrophils # Man Lymphocytes # (Manual) Haptoglobin PT INR Fibrinogen Lupus Anticoagulant LA PTT Baseline POC ABG pH POC ABG pCO2 POC ABG pO2 Sodium Potassium Chloride Carbon Dioxide BUN 46 H Creatinine 2.0 H Glucose 166 H POC Glucose 147 H 178 H Lactic Acid Uric Acid Calcium 7.3 L Phosphorus Iron TIBC Erythropoietin Ferritin Total Bilirubin Direct Bilirubin AST ALT Alkaline Phosphatase Lactate Dehydrogenase C-Reactive Protein Serum Total Protein Total Protein Albumin Oysou-9-Gtbxrwqdr Abnorm Protein Band 1 PEP Interpretation Crossmatch 11/05/16 11/05/16 11/06/16 21:31 23:49 05:09 WBC RBC Hgb Hct MCV MCHC RDW Plt Count Seg Neuts % (Manual) Lymphocytes % (Manual) Nucleated RBC % Seg Neutrophils # Man Lymphocytes # (Manual) Haptoglobin PT INR Fibrinogen Lupus Anticoagulant LA PTT Baseline POC ABG pH 7.464 H POC ABG pCO2 34.8 L POC ABG pO2 219 H Sodium Potassium Chloride Carbon Dioxide BUN Creatinine Glucose POC Glucose 130 H 138 H Lactic Acid Uric Acid Calcium Phosphorus Iron TIBC Erythropoietin Ferritin Total Bilirubin Direct Bilirubin AST ALT Alkaline Phosphatase Lactate Dehydrogenase C-Reactive Protein Serum Total Protein Total Protein Albumin Wsube-4-Ioyiqqinv Abnorm Protein Band 1 PEP Interpretation Crossmatch 11/06/16 11/06/16 11/06/16 08:10 08:10 11:23 WBC RBC 2.78 L Hgb 8.7 L Hct 26.4 L MCV 95 H MCHC RDW 17.3 H Plt Count 34 L Seg Neuts % (Manual) Lymphocytes % (Manual) Nucleated RBC % Seg Neutrophils # Man Lymphocytes # (Manual) Haptoglobin PT INR Fibrinogen Lupus Anticoagulant LA PTT Baseline POC ABG pH POC ABG pCO2 POC ABG pO2 Sodium Potassium Chloride 97.8 L Carbon Dioxide BUN 72 H Creatinine 3.0 H Glucose 173 H POC Glucose 129 H Lactic Acid Uric Acid Calcium 7.2 L Phosphorus Iron TIBC Erythropoietin Ferritin Total Bilirubin Direct Bilirubin AST 105 H ALT Alkaline Phosphatase 759 H Lactate Dehydrogenase C-Reactive Protein Serum Total Protein Total Protein 5.1 L Albumin 1.9 L Dcmyi-6-Uqgiggzsf Abnorm Protein Band 1 PEP Interpretation Crossmatch 11/06/16 11/07/16 11/07/16 17:17 05:09 08:27 WBC RBC 2.76 L Hgb 8.5 L Hct 25.9 L MCV MCHC RDW 16.5 H Plt Count 33 L Seg Neuts % (Manual) Lymphocytes % (Manual) Nucleated RBC % Seg Neutrophils # Man Lymphocytes # (Manual) Haptoglobin PT INR Fibrinogen Lupus Anticoagulant LA PTT Baseline POC ABG pH POC ABG pCO2 POC ABG pO2 Sodium Potassium Chloride Carbon Dioxide BUN Creatinine Glucose POC Glucose 160 H 136 H Lactic Acid Uric Acid Calcium Phosphorus Iron TIBC Erythropoietin Ferritin Total Bilirubin Direct Bilirubin AST ALT Alkaline Phosphatase Lactate Dehydrogenase C-Reactive Protein Serum Total Protein Total Protein Albumin Xckti-5-Mgexeawzn Abnorm Protein Band 1 PEP Interpretation Crossmatch 11/07/16 11/07/16 11/07/16 08:27 11:37 12:38 WBC RBC Hgb Hct MCV MCHC RDW Plt Count Seg Neuts % (Manual) Lymphocytes % (Manual) Nucleated RBC % Seg Neutrophils # Man Lymphocytes # (Manual) Haptoglobin PT INR Fibrinogen Lupus Anticoagulant LA PTT Baseline POC ABG pH 7.492 H POC ABG pCO2 29.8 L POC ABG pO2 132 H Sodium Potassium Chloride 96.0 L Carbon Dioxide BUN 94 H Creatinine 3.3 H Glucose 115 H POC Glucose 113 H Lactic Acid Uric Acid Calcium 7.7 L Phosphorus Iron TIBC Erythropoietin Ferritin Total Bilirubin Direct Bilirubin AST ALT Alkaline Phosphatase Lactate Dehydrogenase C-Reactive Protein Serum Total Protein Total Protein Albumin Bgenj-6-Domlepadc Abnorm Protein Band 1 PEP Interpretation Crossmatch 11/07/16 11/07/16 11/08/16 17:20 23:40 05:15 WBC RBC 2.87 L Hgb 8.9 L Hct 26.9 L MCV MCHC RDW 16.7 H Plt Count 34 L Seg Neuts % (Manual) Lymphocytes % (Manual) Nucleated RBC % Seg Neutrophils # Man Lymphocytes # (Manual) Haptoglobin PT INR Fibrinogen Lupus Anticoagulant LA PTT Baseline POC ABG pH POC ABG pCO2 POC ABG pO2 Sodium Potassium Chloride Carbon Dioxide BUN Creatinine Glucose POC Glucose 121 H 122 H Lactic Acid Uric Acid Calcium Phosphorus Iron TIBC Erythropoietin Ferritin Total Bilirubin Direct Bilirubin AST ALT Alkaline Phosphatase Lactate Dehydrogenase C-Reactive Protein Serum Total Protein Total Protein Albumin Djnkv-8-Tvyupafpq Abnorm Protein Band 1 PEP Interpretation Crossmatch 11/08/16 11/08/16 11/08/16 05:15 05:31 10:05 WBC RBC Hgb Hct MCV MCHC RDW Plt Count Seg Neuts % (Manual) Lymphocytes % (Manual) Nucleated RBC % Seg Neutrophils # Man Lymphocytes # (Manual) Haptoglobin PT INR Fibrinogen Lupus Anticoagulant LA PTT Baseline POC ABG pH 7.510 H POC ABG pCO2 29.5 L POC ABG pO2 114 H Sodium Potassium Chloride Carbon Dioxide BUN 73 H Creatinine 2.8 H Glucose 110 H POC Glucose 106 H Lactic Acid Uric Acid Calcium 7.6 L Phosphorus Iron TIBC Erythropoietin Ferritin Total Bilirubin Direct Bilirubin AST ALT Alkaline Phosphatase Lactate Dehydrogenase C-Reactive Protein Serum Total Protein Total Protein Albumin Ufvvg-5-Xrvsavekt Abnorm Protein Band 1 PEP Interpretation Crossmatch 11/08/16 11/08/16 11/08/16 12:24 12:53 18:05 WBC RBC Hgb Hct MCV MCHC RDW Plt Count Seg Neuts % (Manual) Lymphocytes % (Manual) Nucleated RBC % Seg Neutrophils # Man Lymphocytes # (Manual) Haptoglobin PT INR Fibrinogen Lupus Anticoagulant LA PTT Baseline POC ABG pH POC ABG pCO2 52.3 H POC ABG pO2 Sodium Potassium Chloride Carbon Dioxide BUN Creatinine Glucose POC Glucose 110 H 166 H Lactic Acid Uric Acid Calcium Phosphorus Iron TIBC Erythropoietin Ferritin Total Bilirubin Direct Bilirubin AST ALT Alkaline Phosphatase Lactate Dehydrogenase C-Reactive Protein Serum Total Protein Total Protein Albumin Nkbtu-1-Degddupnu Abnorm Protein Band 1 PEP Interpretation Crossmatch 11/09/16 11/09/16 11/09/16 00:27 05:22 07:39 WBC 11.1 H RBC 2.91 L Hgb 8.9 L Hct 27.7 L MCV 95 H MCHC RDW 17.4 H Plt Count 59 L Seg Neuts % (Manual) Lymphocytes % (Manual) Nucleated RBC % Seg Neutrophils # Man Lymphocytes # (Manual) Haptoglobin PT INR Fibrinogen Lupus Anticoagulant LA PTT Baseline POC ABG pH POC ABG pCO2 POC ABG pO2 Sodium Potassium Chloride Carbon Dioxide BUN Creatinine Glucose POC Glucose 196 H 213 H Lactic Acid Uric Acid Calcium Phosphorus Iron TIBC Erythropoietin Ferritin Total Bilirubin Direct Bilirubin AST ALT Alkaline Phosphatase Lactate Dehydrogenase C-Reactive Protein Serum Total Protein Total Protein Albumin Itmxi-7-Fyeiilwxm Abnorm Protein Band 1 PEP Interpretation Crossmatch 11/09/16 11/09/16 11/09/16 07:39 12:24 18:01 WBC RBC Hgb Hct MCV MCHC RDW Plt Count Seg Neuts % (Manual) Lymphocytes % (Manual) Nucleated RBC % Seg Neutrophils # Man Lymphocytes # (Manual) Haptoglobin PT INR Fibrinogen Lupus Anticoagulant LA PTT Baseline POC ABG pH POC ABG pCO2 POC ABG pO2 Sodium Potassium 3.3 L Chloride Carbon Dioxide BUN 47 H Creatinine 1.9 H Glucose 207 H POC Glucose 148 H 123 H Lactic Acid Uric Acid Calcium 7.6 L Phosphorus Iron TIBC Erythropoietin Ferritin Total Bilirubin Direct Bilirubin AST ALT Alkaline Phosphatase Lactate Dehydrogenase C-Reactive Protein Serum Total Protein Total Protein Albumin Sseek-7-Bioxbookn Abnorm Protein Band 1 PEP Interpretation Crossmatch 11/10/16 11/10/16 11/10/16 00:34 06:15 06:15 WBC RBC 2.66 L Hgb 8.3 L Hct 25.9 L MCV 98 H D MCHC RDW 17.6 H Plt Count 50 L Seg Neuts % (Manual) Lymphocytes % (Manual) Nucleated RBC % Seg Neutrophils # Man Lymphocytes # (Manual) Haptoglobin PT INR Fibrinogen Lupus Anticoagulant LA PTT Baseline POC ABG pH POC ABG pCO2 POC ABG pO2 Sodium Potassium Chloride Carbon Dioxide BUN 64 H Creatinine 2.3 H Glucose 154 H POC Glucose 176 H Lactic Acid Uric Acid Calcium 7.6 L Phosphorus Iron TIBC Erythropoietin Ferritin Total Bilirubin Direct Bilirubin AST ALT Alkaline Phosphatase Lactate Dehydrogenase C-Reactive Protein Serum Total Protein Total Protein Albumin Vgapc-1-Cnnxkexyi Abnorm Protein Band 1 PEP Interpretation Crossmatch 11/10/16 11/10/16 11/11/16 12:03 17:03 00:03 WBC RBC Hgb Hct MCV MCHC RDW Plt Count Seg Neuts % (Manual) Lymphocytes % (Manual) Nucleated RBC % Seg Neutrophils # Man Lymphocytes # (Manual) Haptoglobin PT INR Fibrinogen Lupus Anticoagulant LA PTT Baseline POC ABG pH POC ABG pCO2 POC ABG pO2 Sodium Potassium Chloride Carbon Dioxide BUN Creatinine Glucose POC Glucose 121 H < 40 L 121 H Lactic Acid Uric Acid Calcium Phosphorus Iron TIBC Erythropoietin Ferritin Total Bilirubin Direct Bilirubin AST ALT Alkaline Phosphatase Lactate Dehydrogenase C-Reactive Protein Serum Total Protein Total Protein Albumin Jttrr-2-Xbrcamesd Abnorm Protein Band 1 PEP Interpretation Crossmatch 11/11/16 11/11/16 11/11/16 05:27 08:30 08:30 WBC RBC 2.76 L Hgb 8.5 L Hct 26.4 L MCV 96 H MCHC RDW 17.3 H Plt Count 45 L Seg Neuts % (Manual) 74.0 H Lymphocytes % (Manual) 0 L Nucleated RBC % 1.0 H Seg Neutrophils # Man 7.8 H Lymphocytes # (Manual) 0.0 L Haptoglobin PT INR Fibrinogen Lupus Anticoagulant LA PTT Baseline POC ABG pH POC ABG pCO2 POC ABG pO2 Sodium Potassium 3.4 L Chloride Carbon Dioxide BUN 45 H Creatinine 1.8 H Glucose 138 H POC Glucose 113 H Lactic Acid Uric Acid Calcium 7.6 L Phosphorus Iron TIBC Erythropoietin Ferritin Total Bilirubin Direct Bilirubin AST 87 H ALT Alkaline Phosphatase 635 H Lactate Dehydrogenase C-Reactive Protein Serum Total Protein Total Protein 4.9 L Albumin 1.7 L Fgexq-2-Ovgtrjewr Abnorm Protein Band 1 PEP Interpretation Crossmatch 11/11/16 11/11/16 11/12/16 12:40 17:46 00:17 WBC RBC Hgb Hct MCV MCHC RDW Plt Count Seg Neuts % (Manual) Lymphocytes % (Manual) Nucleated RBC % Seg Neutrophils # Man Lymphocytes # (Manual) Haptoglobin PT INR Fibrinogen Lupus Anticoagulant LA PTT Baseline POC ABG pH POC ABG pCO2 POC ABG pO2 Sodium Potassium Chloride Carbon Dioxide BUN Creatinine Glucose POC Glucose 139 H 169 H 143 H Lactic Acid Uric Acid Calcium Phosphorus Iron TIBC Erythropoietin Ferritin Total Bilirubin Direct Bilirubin AST ALT Alkaline Phosphatase Lactate Dehydrogenase C-Reactive Protein Serum Total Protein Total Protein Albumin Nlgfr-8-Qyigrmnte Abnorm Protein Band 1 PEP Interpretation Crossmatch 11/12/16 11/12/16 11/12/16 02:00 02:00 05:26 WBC RBC Hgb Hct MCV MCHC RDW Plt Count Seg Neuts % (Manual) Lymphocytes % (Manual) Nucleated RBC % Seg Neutrophils # Man Lymphocytes # (Manual) Haptoglobin PT INR Fibrinogen Lupus Anticoagulant LA PTT Baseline POC ABG pH POC ABG pCO2 POC ABG pO2 Sodium Potassium Chloride Carbon Dioxide BUN Creatinine Glucose POC Glucose 143 H Lactic Acid 3.00 H* Uric Acid Calcium Phosphorus Iron TIBC Erythropoietin Ferritin Total Bilirubin Direct Bilirubin AST ALT Alkaline Phosphatase Lactate Dehydrogenase C-Reactive Protein 16.00 H Serum Total Protein Total Protein Albumin Xjwax-5-Ijrdgvato Abnorm Protein Band 1 PEP Interpretation Crossmatch 11/12/16 11/12/16 11/12/16 07:46 12:07 23:57 WBC RBC Hgb Hct MCV MCHC RDW Plt Count Seg Neuts % (Manual) Lymphocytes % (Manual) Nucleated RBC % Seg Neutrophils # Man Lymphocytes # (Manual) Haptoglobin PT INR Fibrinogen Lupus Anticoagulant LA PTT Baseline POC ABG pH POC ABG pCO2 POC ABG pO2 Sodium Potassium Chloride Carbon Dioxide BUN Creatinine Glucose POC Glucose 145 H 158 H 159 H Lactic Acid Uric Acid Calcium Phosphorus Iron TIBC Erythropoietin Ferritin Total Bilirubin Direct Bilirubin AST ALT Alkaline Phosphatase Lactate Dehydrogenase C-Reactive Protein Serum Total Protein Total Protein Albumin Awund-2-Ijzrzkube Abnorm Protein Band 1 PEP Interpretation Crossmatch 11/12/16 11/12/16 11/13/16 Unknown Unknown 05:30 WBC RBC 2.87 L 2.73 L Hgb 9.0 L 8.4 L Hct 27.3 L 25.9 L MCV 95 H 95 H MCHC RDW 17.3 H 17.9 H Plt Count 56 L 51 L Seg Neuts % (Manual) 72.0 H Lymphocytes % (Manual) 7.0 L 3.0 L Nucleated RBC % 6.0 H Seg Neutrophils # Man Lymphocytes # (Manual) 0.6 L 0.1 L Haptoglobin PT INR Fibrinogen Lupus Anticoagulant LA PTT Baseline POC ABG pH POC ABG pCO2 POC ABG pO2 Sodium Potassium Chloride Carbon Dioxide BUN 42 H Creatinine 1.7 H Glucose 152 H POC Glucose Lactic Acid Uric Acid Calcium 7.8 L Phosphorus Iron TIBC Erythropoietin Ferritin Total Bilirubin Direct Bilirubin AST ALT Alkaline Phosphatase Lactate Dehydrogenase C-Reactive Protein Serum Total Protein Total Protein Albumin Bhumr-1-Xjhdaakbg Abnorm Protein Band 1 PEP Interpretation Crossmatch 11/13/16 11/13/16 11/13/16 05:30 06:22 11:49 WBC RBC Hgb Hct MCV MCHC RDW Plt Count Seg Neuts % (Manual) Lymphocytes % (Manual) Nucleated RBC % Seg Neutrophils # Man Lymphocytes # (Manual) Haptoglobin PT INR Fibrinogen Lupus Anticoagulant LA PTT Baseline POC ABG pH POC ABG pCO2 POC ABG pO2 Sodium Potassium Chloride Carbon Dioxide 18 L BUN 61 H Creatinine 2.3 H Glucose 146 H POC Glucose 178 H 108 H Lactic Acid Uric Acid Calcium 7.8 L Phosphorus Iron TIBC Erythropoietin Ferritin Total Bilirubin Direct Bilirubin AST ALT Alkaline Phosphatase Lactate Dehydrogenase C-Reactive Protein Serum Total Protein Total Protein Albumin Kbgfq-2-Ypxzaffyk Abnorm Protein Band 1 PEP Interpretation Crossmatch Allied health notes reviewed: RT
[2016-11-13] MEDS ORDERED: DIPRIVAN 10 MG/ML 1,000 MG/100 ML BOTTLE IV ONE (14:30)
[2016-11-13] MEDS ORDERED: SUBLIMAZE ONE (14:31)
--- NOTE | 2016-11-13 14:47 | Progress Note ---
Subjective Date of service: 11/13/16 Principal diagnosis: Sepsis Syndrome; MAHA; RAJESH; CHF; TTP Interval history: Patient is a 61-year-old man without known past medical history who presented to the emergency department [facility] on 10/13/16, complaining of bilateral leg swelling that worsened for the last 4 days. He was found to have severe metabolic acidosis, creatinine was 14.5 with hyperkalemia, emergent Hemodialysis was done. He was also found to have severe pancytopenia, thrombocytopenia and Dr. 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 He was on bipap and was intubated 10/16/16. Has been vent dependent since then and now has tracheostomy -Acute encephalopathy, not sedated, neurology following [facility] confirms multifocal hemorrhagic lesions but no midline shift/compression of brain structures/significant mass effect and is actually improved from prior MRI. CTA H/N w/o vascular lesion. JONATHAN w/o endocarditis or source of emboli. 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 Avoid all blood thinners until hemorrhage stable. BP control: goal < 140/90 -AFIB WITH RVR, stable: Cardiology is following -Group B strep bacteremia: JONATHAN done on 10/27/16, off antibiotics -Acute Respiratory failure with hypoxia, intubated via tracheostome - anemia, thrombocytopenia] heme/onc is following, s/p PLASMAPHERSIS, s/p PRBC transfusion, s/p plt transfusion -ARF, getting hemodialysis: Per nephrology -Acute systolic congestive heart failure EF around 30% - cardiogenic shock, on levophed, patient is not tolerating weaning of Levophed Subjective Patient seen and examined. Patient still intubated. Overnight uneventful. Eyes open, not following any commands Objective GEN: Critically ill intubated but not sedated HEENT: Eyes open,trach in place CVS: irregular, NORMAL S1S2 LUNGS/CHEST: NORMAL CHEST EXPANSION B, GOOD AIR ENTRY B ABD: SOFT, peg in place POSITIVE BOWEL SOUNDS, NONDISTENDED, NO REBOUND OR GUARDING NEURO: CN 2-12 GROSSLY INTACT, he doesn't follow commands PSY: Unresponsive Objective - Constitutional Vitals: Vital Signs - 12hr 11/13/16 11/13/16 11/13/16 02:45 03:00 03:15 Temperature Pulse Rate 106 H 110 H 110 H Pulse Rate [ From Monitor] Respiratory 26 H 30 H 31 H Rate Blood Pressure 93/56 109/55 101/73 O2 Sat by Pulse 100 100 100 Oximetry O2 Sat by Pulse Oximetry [ Assessment] 11/13/16 11/13/16 11/13/16 03:30 03:45 04:00 Temperature 98.6 F Pulse Rate 109 H 107 H 114 H Pulse Rate [ 120 H From Monitor] Respiratory 29 H 23 30 H Rate Blood Pressure 99/67 97/65 126/82 O2 Sat by Pulse 100 100 100 Oximetry O2 Sat by Pulse Oximetry [ Assessment] 11/13/16 11/13/16 11/13/16 04:16 04:30 04:45 Temperature Pulse Rate 115 H 119 H 112 H Pulse Rate [ From Monitor] Respiratory 29 H 41 H 30 H Rate Blood Pressure 151/124 97/80 128/71 O2 Sat by Pulse 100 90 Oximetry O2 Sat by Pulse Oximetry [ Assessment] 11/13/16 11/13/16 11/13/16 05:00 05:02 05:15 Temperature Pulse Rate 113 H 114 H 111 H Pulse Rate [ From Monitor] Respiratory 30 H 32 H Rate Blood Pressure 112/77 128/71 105/66 O2 Sat by Pulse 100 100 Oximetry O2 Sat by Pulse Oximetry [ Assessment] 11/13/16 11/13/16 11/13/16 05:30 05:45 06:00 Temperature Pulse Rate 110 H 109 H 120 H Pulse Rate [ From Monitor] Respiratory 30 H 27 H 24 Rate Blood Pressure 109/58 105/55 94/53 O2 Sat by Pulse Oximetry O2 Sat by Pulse Oximetry [ Assessment] 11/13/16 11/13/16 11/13/16 06:15 06:30 06:45 Temperature Pulse Rate 110 H 110 H 108 H Pulse Rate [ From Monitor] Respiratory 30 H 29 H 31 H Rate Blood Pressure 101/59 99/59 95/56 O2 Sat by Pulse 96 Oximetry O2 Sat by Pulse Oximetry [ Assessment] 11/13/16 11/13/16 11/13/16 07:00 07:15 07:30 Temperature Pulse Rate 110 H 112 H 111 H Pulse Rate [ From Monitor] Respiratory 22 36 H 33 H Rate Blood Pressure 92/55 101/57 106/62 O2 Sat by Pulse Oximetry O2 Sat by Pulse Oximetry [ Assessment] 11/13/16 11/13/16 11/13/16 07:45 08:00 08:15 Temperature 98.1 F Pulse Rate 110 H 108 H 109 H Pulse Rate [ 109 H From Monitor] Respiratory 28 H 30 H 29 H Rate Blood Pressure 97/64 102/58 105/55 O2 Sat by Pulse 100 100 Oximetry O2 Sat by Pulse Oximetry [ Assessment] 11/13/16 11/13/16 11/13/16 08:30 08:45 09:00 Temperature Pulse Rate 110 H 110 H 112 H Pulse Rate [ From Monitor] Respiratory 31 H 28 H 34 H Rate Blood Pressure 99/56 101/53 92/55 O2 Sat by Pulse 100 100 100 Oximetry O2 Sat by Pulse Oximetry [ Assessment] 11/13/16 11/13/16 11/13/16 09:15 09:22 09:30 Temperature Pulse Rate 110 H 111 H 115 H Pulse Rate [ From Monitor] Respiratory 28 H 28 H Rate Blood Pressure 90/55 92/55 90/55 O2 Sat by Pulse 100 75 L Oximetry O2 Sat by Pulse 100 Oximetry [ Assessment] 11/13/16 11/13/16 11/13/16 09:36 09:45 10:00 Temperature Pulse Rate 109 H 109 H Pulse Rate [ From Monitor] Respiratory 30 H 30 H Rate Blood Pressure 103/66 93/66 O2 Sat by Pulse 100 100 Oximetry O2 Sat by Pulse Oximetry [ Assessment] 11/13/16 11/13/16 11/13/16 10:15 10:30 10:45 Temperature Pulse Rate 110 H 110 H 112 H Pulse Rate [ From Monitor] Respiratory 29 H 31 H 30 H Rate Blood Pressure 97/67 104/68 112/66 O2 Sat by Pulse 100 Oximetry O2 Sat by Pulse Oximetry [ Assessment] 11/13/16 11/13/16 11/13/16 11:00 11:15 11:30 Temperature Pulse Rate 112 H 113 H 113 H Pulse Rate [ From Monitor] Respiratory 33 H 30 H 33 H Rate Blood Pressure 104/70 107/61 107/63 O2 Sat by Pulse 97 100 Oximetry O2 Sat by Pulse Oximetry [ Assessment] 11/13/16 11/13/16 11/13/16 11:45 12:00 12:33 Temperature 99 F Pulse Rate 114 H 112 H 113 H Pulse Rate [ From Monitor] Respiratory 31 H 30 H Rate Blood Pressure 116/64 103/60 101/65 O2 Sat by Pulse 100 100 100 Oximetry O2 Sat by Pulse Oximetry [ Assessment] - Labs CBC & Chem 7: 11/13/16 05:30 11/13/16 05:30 Labs: Abnormal lab results 11/12/16 11/12/16 11/13/16 Range/Units 07:46 23:57 05:30 RBC 2.73 L (3.65-5.03) M/mm3 Hgb 8.4 L (11.8-15.2) gm/dl Hct 25.9 L (35.5-45.6) % MCV 95 H (84-94) fl RDW 17.9 H (13.2-15.2) % Plt Count 51 L (140-440) K/mm3 Seg Neuts % (Manual) 72.0 H (40.0-70.0) % Lymphocytes % (Manual) 3.0 L (13.4-35.0) % Lymphocytes # (Manual) 0.1 L (1.2-5.4) K/mm3 Carbon Dioxide (22-30) mmol/L BUN (9-20) mg/dL Creatinine (0.8-1.5) mg/dL Glucose (75-100) mg/dL POC Glucose 145 H 159 H (70-105) Calcium (8.4-10.2) mg/dL 11/13/16 11/13/16 11/13/16 Range/Units 05:30 06:22 11:49 RBC (3.65-5.03) M/mm3 Hgb (11.8-15.2) gm/dl Hct (35.5-45.6) % MCV (84-94) fl RDW (13.2-15.2) % Plt Count (140-440) K/mm3 Seg Neuts % (Manual) (40.0-70.0) % Lymphocytes % (Manual) (13.4-35.0) % Lymphocytes # (Manual) (1.2-5.4) K/mm3 Carbon Dioxide 18 L (22-30) mmol/L BUN 61 H (9-20) mg/dL Creatinine 2.3 H (0.8-1.5) mg/dL Glucose 146 H (75-100) mg/dL POC Glucose 178 H 108 H (70-105) Calcium 7.8 L (8.4-10.2) mg/dL
[2016-11-13 15:07] LABS: ISTAT Base Excess -17; ISTAT HCO3 10.9; ISTAT PCO2 25.5 (35-45); ISTAT PH 7.236 (7.35-7.45); ISTAT PO2 266 (80-105); ISTAT SO2 100; ISTAT TCO2 12
[2016-11-13] MEDS ORDERED: DIPRIVAN 10 MG/ML 1,000 MG/100 ML BOTTLE IV SCH (16:00)
[2016-11-13 16:12] VITALS: BP 97/74
[2016-11-13] MEDS ORDERED: D50W (25GM) IV ONE (16:46)
[2016-11-13] MEDS ORDERED: SODIUM BICARBONATE 150 MEQ in D5W 1,000 ML IV SCH (17:00)
[2016-11-13] MEDS ORDERED: ADRENALIN ONE (20:40)
[2016-11-13] MEDS ORDERED: SODIUM BICARBONATE FEEDTUBE SCH (22:00)
== END 2016-11-13 16:50 | DRG 4 ==
LOC: EDSEX → ED 09:13 → 4A 14:36 → CC1 19:54
PROVIDERS: ADMIT Internal Medicine; ATTEND Internal Medicine
PROC: 30233N1 Transfusion of Nonautologous Red Blood Cells into Peripheral Vein, Percutaneous Approach (ICD-10-PCS; principal; 2016-10-13)
PROC: 5A1955Z Respiratory Ventilation, Greater than 96 Consecutive Hours (ICD-10-PCS; 2016-10-13)
PROC: 4A033R1 Measurement of Arterial Saturation, Peripheral, Percutaneous Approach (ICD-10-PCS; 2016-10-13)
PROC: 30233K1 Transfusion of Nonautologous Frozen Plasma into Peripheral Vein, Percutaneous Approach (ICD-10-PCS; 2016-10-13)
PROC: 30233R1 Transfusion of Nonautologous Platelets into Peripheral Vein, Percutaneous Approach (ICD-10-PCS; 2016-10-13)
PROC: 30233L1 Transfusion of Nonautologous Fresh Plasma into Peripheral Vein, Percutaneous Approach (ICD-10-PCS; 2016-10-13)
PROC: 05HM33Z Insertion of Infusion Device into Right Internal Jugular Vein, Percutaneous Approach (ICD-10-PCS; 2016-10-13)
PROC: B543ZZA Ultrasonography of Right Jugular Veins, Guidance (ICD-10-PCS; 2016-10-13)
PROC: 5A1D60Z (ICD-10-PCS; 2016-10-13)
PROC: 5A09457 Assistance with Respiratory Ventilation, 24-96 Consecutive Hours, Continuous Positive Airway Pressure (ICD-10-PCS; 2016-10-13)
PROC: 0B113F4 Bypass Trachea to Cutaneous with Tracheostomy Device, Percutaneous Approach (ICD-10-PCS; 2016-11-02)
PROC: 0DH63UZ Insertion of Feeding Device into Stomach, Percutaneous Approach (ICD-10-PCS; 2016-11-02)
PROC: 0BH17EZ Insertion of Endotracheal Airway into Trachea, Via Natural or Artificial Opening (ICD-10-PCS; 2016-11-02)
DX: A40.1 Sepsis due to streptococcus, group B (principal); G93.40 Encephalopathy, unspecified; N18.6 End stage renal disease; G93.41 Metabolic encephalopathy; I50.21 Acute systolic (congestive) heart failure; J96.01 Acute respiratory failure with hypoxia; R65.21 Severe sepsis with septic shock; N17.9 Acute kidney failure, unspecified; D61.818 Other pancytopenia; E87.2 Acidosis; I42.9 Cardiomyopathy, unspecified; D68.9 Coagulation defect, unspecified; I13.2 Hypertensive heart and chronic kidney disease with heart failure and with stage 5 chronic kidney disease, or end stage renal disease; D64.9 Anemia, unspecified; D72.819 Decreased white blood cell count, unspecified; E87.5 Hyperkalemia; I48.0 Paroxysmal atrial fibrillation; E83.51 Hypocalcemia; Z99.2 Dependence on renal dialysis; I48.91 Unspecified atrial fibrillation; E11.22 Type 2 diabetes mellitus with diabetic chronic kidney disease; E11.649 Type 2 diabetes mellitus with hypoglycemia without coma
CPT/HCPCS: 36415; 36430; 36514; 36600; 70450; 70496; 70498; 70551; 71010; 71020; 74000; 76700; 76770; 80048; 80053; 80061; 80202; 82140; 82248; 82607; 82668; 82728; 82784; 82803; 82947; 82962; 83010; 83520; 83550; 83615; 83655; 83690; 83880; 84100; 84165; 84443; 84484; 84550; 85007; 85025; 85027; 85384; 85610; 85613; 85652; 86021; 86038; 86140; 86160; 86706; 86803; 86850; 86880; 86900; 86901; 86920; 87040; 87070; 87205; 87493; 87806; 88184; 88185; 93005; 93010; 93306; 93312; 93320; 93325; 93970; 94002; 94003; 94660; 94760; 96374; J0171; J0282; J0610; J0690; J1100; J1200; J1630; J1644; J1720; J1815; J1940; J2250; J2270; J2543; J2704; J2997; J3010; J3370; J3430; J3480; J7030; J7040; J7050; J7060; J7131; P9016; P9017; P9035; Q9967